=== PATIENT | female | born 1950 | race Caucasian/White ===

== ENCOUNTER 2022-12-13 17:41 | Emergency (ER) | payer MEDICARE, MEDICAID, SELFPAY ==
[2022-12-13 17:56] VITALS: BP 122/70; PULSE 65; RESP 16; TEMP 37; O2SAT 97; BMI 27.0
[2022-12-13] MEDS: ONDANSETRON 4 MG RAPDIS TABLET SL (18:30)
[2022-12-13 18:33] LABS: Bilirubin Urine NEGATIVE (NEGATIVE); Blood Urine TRACE-I (NEGATIVE); Clarity Urine SL CLOUDY (CLEAR); Color Urine LT. YELLOW (YELLOW); Glucose Urine UA NEGATIVE (NEGATIVE); Ketones Urine NEGATIVE (NEGATIVE); Leukocyte Esterase Urine LARGE (NEGATIVE); Nitrite Urine POSITIVE (NEGATIVE); Protein Urine 30 mg/dL (NEG/TRACE); Specific Gravity Urine 1.015 (1.005-1.025); Urobilinogen Urine 0.2 EU/dL (0.2-1.0); pH Urine 8.5 (5.0-9.0)
--- NOTE | 2022-12-13 18:38 | ED_ITS ---
HPI - General Adult General Chief complaint: Urogenital-Female Stated complaint: UTI Time Seen by Provider: 12/13/22 17:57 Source: patient Mode of arrival: walk-in Limitations: no limitations History of Present Illness HPI narrative: Patient is a 72-year-old female who is presenting to the Emergency Room with 5 days of urinary frequency, urgency, burning. Patient feels like she is having intermittent fevers last couple days, nausea no vomiting. Patient is having right lower back pain. 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 Patient had multiple injuries from previous trauma. Patient son is at bedside. Patient is in a walking boot to the right lower leg. Patient has a Rollader that she uses for ambulation. Patient had no vomiting. Patient thinks that she might of had kidney infections in the past from her urinary tract infection secondary to urinary retention. Patient has seen specialists for urinary retention the past, she no longer sees anybody. Patient has not had urinary retention for years. No acute complaints. Patient looks well, was a home with family. Patient is not meeting any sepsis parameters. . All systems are negative except as noted/marked. All systems reviewed and otherwise negative. . Nurses note and vital signs reviewed and patient is not hypoxic. General: The patient appears well and in no apparent distress. Patient is resting comfortably on cart. Patient is not toxic, lethargic, or listless Skin: Warm, dry, no pallor noted. There is no rash noted. No petechiae, purpura. Head: Normocephalic, atraumatic Eye: Normal conjunctiva, no drainage, EOMI. PERRL Ears, Nose, Mouth, and Throat: oral mucosa is moist. Nares patent. Mouth without vesicles. Cardiovascular: Regular Rate and Rhythm, no murmur, gallop, rub Respiratory: Patient is in no distress, no accessory muscle use, lungs are clear to auscultation, no wheezing, rales or rhonchi Back: non-tender, no CVA tenderness bilaterally to percussion. No CT LS midline pain GI: soft, Mild suprapubic tenderness palpation, no flank pain bilateral, no peritoneal signs, otherwise no tenderness to palpation, no masses appreciated. No rebound, guarding, or rigidity noted. No flank pain bilateral, No distention. No rash. Musculoskeletal: Patient has full range of motion of all of the extremities, no motor, sensory, or focal neurological deficits. Neurological: A&O x3, normal speech Psychiatric: Cooperative Related Data Home Medications Medication Instructions Recorded Confirmed amlodipine 10 mg tablet mg 12/13/22 celecoxib 200 mg capsule mg 12/13/22 clonazepam 0.5 mg tablet mg 12/13/22 pantoprazole 40 mg tablet,delayed mg PO 12/13/22 release potassium chloride 10 mEq meq PO 12/13/22 tablet,extended release sodium chloride 1,000 mg soluble mg 12/13/22 tablet trazodone 150 mg tablet mg 12/13/22 Previous Rx's Medication Instructions Recorded ciprofloxacin HCl 500 mg tablet 500 mg PO BID #14 tabs 12/13/22 (Cipro) phenazopyridine 200 mg tablet 200 mg PO TID x 3 days 2 days #6 12/13/22 (Pyridium) tabs Allergies Allergy/AdvReac Type Severity Reaction Status Date / Time haloperidol [From Haldol] Allergy Intermediate Verified 12/13/22 17:53 prochlorperazine AdvReac Intermediate Verified 12/13/22 17:53 [From Compazine] [facility] Social History Smoking status: Never smoker Exam Constitutional Vital Signs, click to edit/add: Last Vital Signs Temp 98.6 F 12/13/22 17:56 Pulse 65 12/13/22 17:56 Resp 16 12/13/22 17:56 BP 122/70 H 12/13/22 17:56 Pulse Ox 97 12/13/22 17:56 Course Vital Signs Vital signs: Vital Signs Temperature 98.6 F 12/13/22 17:56 Pulse Rate 65 12/13/22 17:56 Respiratory Rate 16 12/13/22 17:56 Blood Pressure 122/70 H 12/13/22 17:56 Pulse Oximetry 97 12/13/22 17:56 Temperature 98.6 F 12/13/22 17:56 Pulse Rate 65 12/13/22 17:56 Respiratory Rate 16 12/13/22 17:56 Blood Pressure 122/70 H 12/13/22 17:56 Pulse Oximetry 97 12/13/22 17:56 Medical Decision Making MDM Narrative Medical decision making narrative: Patient has evidence of a urinary tract infection. Patient was given her 1st shot of Rocephin in the Emergency Room along with her 1st dose of Cipro. Patient was sent home with 7 days of Cipro because she displaying sinus symptoms of early pyelonephritis. Patient was sent home with prescription for nausea medication as well. Patient will follow-up with PCP. Patient increase fluids at home. Education done at bedside. No questions at discharge. Lab Data Labs: Lab Results 12/13/22 Range/Units 18:15 Urine Color Lt. yellow (YELLOW) Urine Clarity Sl cloudy (CLEAR) Urine pH 8.5 (5.0-9.0) Ur Specific [place] 1.015 (1.005-1.025) Urine Protein 30 A (NEG/TRACE) mg/dL Urine Glucose (UA) Negative (NEGATIVE) mg/dL Urine Ketones Negative (NEGATIVE) mg/dL Urine Occult Blood Trace-i (NEGATIVE) Urine Nitrite Positive A (NEGATIVE) Urine Bilirubin Negative (NEGATIVE) Urine Urobilinogen 0.2 (0.2-1.0) EU/dL Ur Leukocyte Esterase Large A (NEGATIVE) Urine RBC 0-2 (0-2) #/HPF Urine WBC 20-50 A (NONE SEEN) #/HPF Ur Squamous Epith Cells Rare (NONE/RARE) #/LPF Urine Crystals None seen (None Seen) #/HPF Urine Bacteria Large A (NONE SEEN) #/HPF Urine Casts None seen (NONE SEEN) #/LPF Urine Mucus None seen (NONE SEEN) Ur Culture Indicated? Already ordered Discharge Plan Discharge Chief Complaint: Urogenital-Female Clinical Impression: Urinary tract infection Patient Disposition: Home, Self-Care Prescriptions / Home Meds: New ciprofloxacin HCl [Cipro] 500 mg tablet 500 mg PO BID Qty: 14 0RF phenazopyridine [Pyridium] 200 mg tablet 200 mg PO TID 2 Days Qty: 6 0RF No Action celecoxib 200 mg capsule clonazepam 0.5 mg tablet potassium chloride 10 mEq tablet extended release PO amlodipine 10 mg tablet pantoprazole 40 mg tablet,delayed release (DR/EC) PO trazodone 150 mg tablet sodium chloride 1,000 mg tablet,soluble Instructions: Urinary Tract Infection in Older Adults (ED) Additional Instructions: Continue to increase fluids. Follow-up with PCP. You're giving a shot of Rocephin and a 1st dose of Cipro in the Emergency Room today. Continue medication tomorrow morning. Increase fluids, including cranberry juice. Follow-up with PCP as needed. Stand Alone Forms: Portal Instructions Referrals: Physician,Non-Staff, MD [Primary Care Provider] - 1 week
[2022-12-13 18:46] LABS: WBC Urine 20-50 #/HPF (NONE SEEN)
[2022-12-13 18:47] LABS: Bacteria Urine LARGE #/HPF (NONE SEEN); Cast Seen? NONE SEEN #/LPF (NONE SEEN); Crystals Seen? None Seen #/HPF (None Seen); Mucus Urine NONE SEEN (NONE SEEN); RBC Urine 0-2 #/HPF (0-2); Squamous Epithelial Cell Urine RARE #/LPF (NONE/RARE); Urine Culture Indicated ALREADY ORDERED
[2022-12-13] MEDS: CIPROFLOXACIN HCL 500 MG TABLET PO (19:15)
[2022-12-13 19:26] VITALS: BP 132/61; PULSE 65; RESP 18; TEMP 36.6; O2SAT 95
--- NOTE | 2022-12-17 13:04 | PC.NURSE ---
12/17/[address] foote reviewed pt c+s of urine from 12/13/22 niko Salvador RN
== END 2022-12-13 19:34 | disposition home or self-care (01) ==
PROVIDERS: Emergency Provider Emergency Medicine
DX: N39.0 Urinary tract infection, site not specified (principal); Z79.899 Other long term (current) drug therapy
CPT/HCPCS: 81001; 87086; 87150; 87186; 96374; 99284

== ENCOUNTER 2022-12-19 10:34 | Emergency (ER) | payer MEDICARE, MEDICAID, SELFPAY ==
[2022-12-19] VITALS (8 sets, daily range): BP systolic 120–149; BP diastolic 63–74; PULSE 72; RESP 16–18; TEMP 36.8; O2SAT 92–97; BMI 23.4
--- NOTE | 2022-12-19 10:56 | ED.LOWEXI1 ---
HPI - Extremity Injury (Lower) General Chief Complaint: Extremity Injury, Lower Stated Complaint: LOWER EXTREMITY PAIN RIGHT FOOT Time Seen by Provider: 12/19/22 10:56 Source: patient and family Mode of arrival: Wheelchair Limitations: no limitations History of Present Illness HPI Narrative: Patient's this emergency department complaining of right foot pain. Patient states the pain is worse over the base of the 5th. Patient has noted some erythema. She had a crush injury to the foot and has a history of multiple surgeries with chronic deformities. She was recently placed on a walking boot by the banana ripening room supervisor. She states this is causing her to develop calluses over the lateral surface of the midfoot. Son states the patient has been picking at the calluses. Patient states she is in a lot of pain and she is not able to bear weight as she normally did. They called her banana ripening room supervisor who is out of town. She states she has been having increased erythema so she wanted to get on some antibiotics. Patient was treated for a urinary tract infection 10 days ago. She is denying any flank pain, hematuria, dysuria. She denies any fever, chills. She denies any new trauma. Related Data Home Medications Medication Instructions Recorded Confirmed amlodipine 10 mg tablet mg 12/13/22 celecoxib 200 mg capsule mg 12/13/22 clonazepam 0.5 mg tablet mg 12/13/22 pantoprazole 40 mg tablet,delayed mg PO 12/13/22 release potassium chloride 10 mEq meq PO 12/13/22 tablet,extended release sodium chloride 1,000 mg soluble mg 12/13/22 tablet trazodone 150 mg tablet mg 12/13/22 Previous Rx's Medication Instructions Recorded ciprofloxacin HCl 500 mg tablet 500 mg PO BID #14 tabs 12/13/22 (Cipro) ondansetron HCl 4 mg tablet 4 mg PO DAILY PRN nausea and 12/13/22 vomiting 3 days #7 tabs phenazopyridine 200 mg tablet 200 mg PO TID x 3 days 2 days #6 12/13/22 (Pyridium) tabs cephalexin 500 mg capsule 500 mg PO Q8H 7 days #21 caps 12/19/22 sulfamethoxazole 800 1 tab PO BID 7 days #14 tabs 12/19/22 mg-trimethoprim 160 mg tablet (Bactrim DS) Allergies Allergy/AdvReac Type Severity Reaction Status Date / Time haloperidol [From Haldol] Allergy Intermediate Verified 12/13/22 17:53 prochlorperazine AdvReac Intermediate Verified 12/13/22 17:53 [From Compazine] Review of Systems ROS Status of ROS 10 or more systems reviewed and unremarkable except as noted in history and below [facility] Social History Smoking status: Never smoker Exam Narrative Exam Narrative: Nurses notes and vital signs reviewed and patient is not hypoxic. General: Nontoxic, Well-appearing and in no apparent distress. Skin: Warm, dry, no pallor noted. No Rash Head: Normocephalic, atraumatic. Neck: Supple, non-tender. Eye: Pupils are equal, round and EOMI. No scleral icterus. Ears, Nose, Mouth, and Throat: TM clear, no posterior oropharynx erythema or nasal mucosal hypertrophy, uvula is mid-line Oral mucosa is moist Cardiovascular: Regular Rate and Rhythm without murmur, gallop or rub. Respiratory: No accessory muscle use or respiratory distress. Lungs are clear to auscultation, no wheezing, rales or rhonchi Chest Wall: no tenderness Back: No midline thoracic or lumbar vertebral tenderness. No CVA tenderness Musculoskeletal: Right foot deformity noted, there is a 2 x 2 cm callus to the base of the 5th with erythema extending medially to the midfoot. There is no fluctuance or signs of abscess. No proximal streaking. DP +2. Capillary refill is brisk. Full range of motion, no calf or popliteal tenderness, no lower extremity edema/swelling GI: Abdomen is soft, non-distended. Normal bowel sounds. No masses appreciated. No tenderness to palpation. No rebound, guarding, or rigidity noted. Neurological: A&O x4. No cranial nerve dysfunction observed. No truncal ataxia. Moves all extremities. Sensation intact. Psychiatric: Cooperative and interactive. Normal mood and affect. Constitutional Vital Signs, click to edit/add: Last Vital Signs Temp 98.3 F 12/19/22 10:41 Pulse 72 12/19/22 10:41 Resp 18 12/19/22 10:41 BP 149/72 H 12/19/22 10:41 Pulse Ox 97 12/19/22 10:41 O2 Del Method Room Air 12/19/22 10:41 Course Vital Signs Vital signs: Vital Signs Temperature 98.3 F 12/19/22 10:41 Pulse Rate 72 12/19/22 10:41 Respiratory Rate 18 12/19/22 10:41 Blood Pressure 149/72 H 12/19/22 10:41 Pulse Oximetry 97 12/19/22 10:41 Oxygen Delivery Method Room Air 12/19/22 10:41 Temperature 98.3 F 12/19/22 10:41 Pulse Rate 72 12/19/22 10:41 Respiratory Rate 18 12/19/22 10:41 Blood Pressure 149/72 H 12/19/22 10:41 Pulse Oximetry 97 12/19/22 10:41 Oxygen Delivery Method Room Air 12/19/22 10:41 MDM - Extremity Injury (Lower) MDM Narrative Medical decision making narrative: She had an IV established, she was given vancomycin. X-ray does not show any osteomyelitis. Patient's labs do not show any signs of sepsis. Patient complaining the emergency department of headache. She was given Toradol and CT scan of the brain was ordered. Results were discussed with patient and son. Patient will be given a prescription for Bactrim, Keflex and she is to follow-up with podiatry as an outpatient. At this time the patient is without objective evidence of an acute process requiring hospitalization or inpatient management. The patient has remained hemodynamically stable. No additional indication for emergent studies at this time. I answered all questions. Discussed discharge instructions including standard anticipatory guidance and what should prompt a return to the emergency department, including if they get worse are not getting better or develops any new or concerning symptoms. I've given them specific time frame in which to follow-up, and who to follow-up with. The patient demonstrates understanding. Patient is nontoxic and stable for discharge with outpatient follow-up. This note was created with the assistance of a speech recognition program. Although the intention is to generate documents that actually reflects the content of the visit, no guarantees can be provided that every mistake has been identified and corrected by editing. Medical Records Attestation: I reviewed the patient's medical records. Lab Data Attestation: I reviewed the patient's lab results. Discharge Plan Discharge Chief Complaint: Extremity Injury, Lower Clinical Impression: Cellulitis of foot, right Patient Disposition: Home, Self-Care Time of Disposition Decision: 13:09 Condition: Good Mode of Transportation: Private Vehicle Prescriptions / Home Meds: New sulfamethoxazole-trimethoprim [Bactrim DS] 800-160 mg tablet 1 tab PO BID 7 Days Qty: 14 0RF cephalexin 500 mg capsule 500 mg PO Q8H 7 Days Qty: 21 0RF No Action celecoxib 200 mg capsule clonazepam 0.5 mg tablet potassium chloride 10 mEq tablet extended release PO amlodipine 10 mg tablet pantoprazole 40 mg tablet,delayed release (DR/EC) PO trazodone 150 mg tablet sodium chloride 1,000 mg tablet,soluble ciprofloxacin HCl [Cipro] 500 mg tablet 500 mg PO BID Qty: 14 0RF phenazopyridine [Pyridium] 200 mg tablet 200 mg PO TID 2 Days Qty: 6 0RF ondansetron HCl 4 mg tablet 4 mg PO DAILY PRN (Reason: nausea and vomiting) 3 Days Qty: 7 0RF Instructions: Cellulitis (ED) Stand Alone Forms: Portal Instructions Referrals: Physician,Non-Staff, MD [Primary Care Provider] - 1 week Robbie Engel MD [Physician] - 1 week
--- NOTE | 2022-12-19 11:14 | XR_ITS ---
[address] [address] Patient Name: MAEGAN DYE MRN: [id number] date: 1950 Sex: F Assigned Patient Location: ER Current Patient Location: ER Accession/Order Number: [id number] Exam Date: 12/19/2022 11:30 Report Date: 12/19/2022 11:55 At the request of: GREGORY PARK Procedure: XR foot RT min 3V PROCEDURE: XR foot RT min 3V COMPARISON: 10/18/2022 HISTORY: pain, FINDINGS: BONES:There is deformity of the foot. 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 Fixation hardware distal tibia partially visualized. No acute fracture or dislocation SOFT TISSUES:Negative. No visible soft tissue swelling. EFFUSION:None visible. OTHER: Negative. XR/XR foot RT min 3V IMPRESSION: No acute fracture Electronically authenticated by: JOSE ROBERTSON Date: 12/19/2022 11:55
[2022-12-19] MEDS: VANCOMYCIN HCL 1,000 MG in 0.9 % SODIUM CHLORIDE 250 ML 250 MG IV (11:46)
[2022-12-19 11:52] LABS: BUN Creatinine Ratio 10.4; Carbon Dioxide 31.9 mmol/L (21.0-32.0); Chloride 97 mmol/L (98-107); Estimated GFR (African America 47 (>=60); Estimated GFR (Non-African Ame 39 (>=60); Glucose 130 mg/dL (74-106); Potassium 3.9 mmol/L (3.5-5.1); Sodium 135 mmol/L (136-145)
[2022-12-19 11:53] LABS: C Reactive Protein <0.2 mg/dL (<=1.0)
[2022-12-19 11:57] LABS: Basophils Absolute Auto 0.1 10^3/uL (0.0-0.1); Basophils Percent Auto 1.2 % (0.2-2.0); Eosinophils Absolute Auto 0.1 10^3/uL (0.0-0.7); Eosinophils Percent Auto 1.2 % (0.9-7.0); Hematocrit 43.9 % (36.0-48.0); Hemoglobin 13.9 g/dL (12.0-16.0); Immature Granulocytes Abs Auto 0.02 10^3/uL (0.00-0.03); Immature Granulocytes Pct Auto 0.3 % (0.0-0.5); Lymphocytes Absolute Auto 1.4 10^3/uL (1.2-3.8); Lymphocytes Percent Auto 19.6 % (20.5-60.0); Mean Corpuscular HGB Conc 31.7 g/dL (29.9-35.2); Mean Corpuscular Hemoglobin 28.2 pg (26.7-34.0); Mean Platelet Volume 8.8 fL (9.5-13.5); Monocytes Absolute Auto 0.6 10^3/uL (0.3-0.8); Monocytes Percent Auto 8.2 % (1.7-12.0); Neutrophils Absolute Auto 4.8 10^3/uL (1.4-6.5); Neutrophils Percent Auto 69.5 % (43.0-75.0); Platelet Count 261 10^3/uL (150-450); Red Blood Count 4.93 10^6/uL (4.20-5.40); Red Cell Distribution Width 12.3 % (11.0-15.0); White Blood Count 6.9 10^3/uL (4.0-11.0)
--- NOTE | 2022-12-19 12:08 | CT_ITS ---
The [address] [address] Patient Name: MAEGAN DYE MRN: [id number] date: 1950 Sex: F Assigned Patient Location: ER Current Patient Location: ER Accession/Order Number: [id number] Exam Date: 12/19/2022 12:15 Report Date: 12/19/2022 12:31 At the request of: GREGORY PARK Procedure: CT stroke head/brain wo con EXAM: CT stroke head/brain wo con HISTORY: cephlagia COMPARISON: CT brain 04/03/2015 TECHNIQUE: No IV contrast. FINDINGS: The ventricles and basilar cisterns are moderately dilated consistent with atrophy. Marked hypodensities periventricular regions and centrum semiovale consistent with microangiopathic change and previous vascular insult. No acute intra-axial or extra-axial hemorrhage. No midline shift, mass effect or edema. Visualized paranasal sinuses demonstrate no evidence for acute sinusitis. The mastoid air cells are clear. The external and middle ear cavities are unremarkable CT/CT stroke head/brain wo con IMPRESSION: No acute hemorrhage Electronically authenticated by: FLOWER ANDRADE Date: 12/19/2022 12:31
[2022-12-19 12:09] LABS: Erythrocyte Sedimentation Rate 26 mm/hr (<=30)
[2022-12-19 12:46] LABS: Bilirubin Urine NEGATIVE (NEGATIVE); Blood Urine NEGATIVE (NEGATIVE); Clarity Urine CLEAR (CLEAR); Color Urine YELLOW (YELLOW); Glucose Urine UA NEGATIVE (NEGATIVE); Ketones Urine NEGATIVE (NEGATIVE); Leukocyte Esterase Urine TRACE (NEGATIVE); Nitrite Urine NEGATIVE (NEGATIVE); Protein Urine NEGATIVE (NEG/TRACE); Specific Gravity Urine 1.025 (1.005-1.025)
[2022-12-19 12:48] LABS: Urine Microscopic Indicated YES
[2022-12-19 12:57] LABS: Bacteria Urine TRACE #/HPF (NONE SEEN); Cast Seen? NONE SEEN #/LPF (NONE SEEN); Crystals Seen? None Seen #/HPF (None Seen); Mucus Urine TRACE (NONE SEEN); Squamous Epithelial Cell Urine FEW #/LPF (NONE/RARE); Urine Culture Indicated NO
[2022-12-19] MEDS: KETOROLAC TROMETHAMINE 30 MG/ML VIAL IVP (13:35)
== END 2022-12-19 13:54 | disposition home or self-care (01) ==
PROVIDERS: Emergency Provider Emergency Medicine
DX: L03.115 Cellulitis of right lower limb (principal); Z79.899 Other long term (current) drug therapy; Z87.440 Personal history of urinary (tract) infections
CPT/HCPCS: 36415; 70450; 73630; 80048; 81001; 81003; 85025; 85652; 86140; 96365; 96375; 99285; J3370

== ENCOUNTER 2023-01-04 10:47 | Emergency (ER) | payer MEDICARE, MEDICAID, SELFPAY ==
[2023-01-04 10:52] VITALS: BP 112/72; PULSE 60; RESP 20; TEMP 36.7; O2SAT 93; BMI 23.8
--- NOTE | 2023-01-04 11:25 | ED.FEMALEGU1 ---
HPI - Female Genitourinary General Chief complaint: Urogenital-Female Stated complaint: UTI COMPLAINTS Time Seen by Provider: 01/04/23 11:01 Source: patient Mode of arrival: Wheelchair Limitations: no limitations History of Present Illness HPI Narrative: patient had a back injury and was not able to urinate on her - she had to self cath. Then, she spontaneously began urinating and did so for several months. However, two months ago, she once again developed difficulty passing urine on her own and started cathing herself again. She has a urologist in [place] via [facility] but did not call them to let them know about this. She now presents telling me that she has conintued sensation of blader fullness and has to cath herself numerous times per day. She is requesting a choi catheter. No flank pain or abdominal pain. She apparently spoke with her PCP and was started on Bactrim the other day to treat any possible infection. No systemic symptoms such as fever or vomiting. Related Data Home Medications Medication Instructions Recorded Confirmed amlodipine 10 mg tablet mg 12/13/22 celecoxib 200 mg capsule mg 12/13/22 clonazepam 0.5 mg tablet mg 12/13/22 pantoprazole 40 mg tablet,delayed mg PO 12/13/22 release potassium chloride 10 mEq meq PO 12/13/22 tablet,extended release sodium chloride 1,000 mg soluble mg 12/13/22 tablet trazodone 150 mg tablet mg 12/13/22 Previous Rx's Medication Instructions Recorded ciprofloxacin HCl 500 mg tablet 500 mg PO BID #14 tabs 12/13/22 (Cipro) ondansetron HCl 4 mg tablet 4 mg PO DAILY PRN nausea and 12/13/22 vomiting 3 days #7 tabs phenazopyridine 200 mg tablet 200 mg PO TID x 3 days 2 days #6 12/13/22 (Pyridium) tabs cephalexin 500 mg capsule 500 mg PO Q8H 7 days #21 caps 12/19/22 sulfamethoxazole 800 1 tab PO BID 7 days #14 tabs 12/19/22 mg-trimethoprim 160 mg tablet (Bactrim DS) Allergies Allergy/AdvReac Type Severity Reaction Status Date / Time haloperidol [From Haldol] Allergy Intermediate Verified 12/13/22 17:53 prochlorperazine AdvReac Intermediate Verified 12/13/22 17:53 [From Compazine] keflex AdvReac Intermediate Nausea Uncoded 01/04/23 10:52 [facility] Social History Smoking status: Never smoker Exam Narrative Exam Narrative: Nurses notes and vital signs reviewed and patient is not hypoxic. afebrile General: Well-appearing and in no apparent distress. Skin: Warm, dry, no pallor noted. Head: Normocephalic, atraumatic. Ears, Nose, Mouth, and Throat: Oral mucosa is moist Cardiovascular: Regular Rate and Rhythm without murmur, gallop or rub. Respiratory: No accessory muscle use or respiratory distress. Lungs are clear to auscultation, no wheezing, rales or rhonchi Back: No CVA tenderness Musculoskeletal: normal ROM GI: Abdomen is soft, non-distended. Normal bowel sounds. No masses appreciated. No tenderness to palpation. No rebound, guarding, or rigidity noted. Neurological: A&O x4. No cranial nerve dysfunction observed. No truncal ataxia. Moves all extremities. Sensation intact. Psychiatric: Cooperative and interactive. Normal mood and affect. Constitutional Vital Signs, click to edit/add: Last Vital Signs Temp 98.1 F 01/04/23 10:52 Pulse 60 01/04/23 10:52 Resp 20 01/04/23 10:52 BP 112/72 01/04/23 10:52 Pulse Ox 93 L 01/04/23 10:52 O2 Del Method Room Air 01/04/23 10:52 Course Vital Signs Vital signs: Vital Signs Temperature 98.1 F 01/04/23 10:52 Pulse Rate 60 01/04/23 10:52 Respiratory Rate 20 01/04/23 10:52 Blood Pressure 112/72 01/04/23 10:52 Pulse Oximetry 93 L 01/04/23 10:52 Oxygen Delivery Method Room Air 01/04/23 10:52 Temperature 98.1 F 01/04/23 10:52 Pulse Rate 60 01/04/23 10:52 Respiratory Rate 20 01/04/23 10:52 Blood Pressure 112/72 01/04/23 10:52 Pulse Oximetry 93 L 01/04/23 10:52 Oxygen Delivery Method Room Air 01/04/23 10:52 MDM - Female Genitourinary MDM Narrative Medical decision making narrative: Nurse straight cathed the patient for urine sample but the patient ahd just emptied her bladder [employer] and no urine was retrieved. ED nurse instructed to insert a choi catheter and attach to leg bag. Patient instructed to complete her antibiotic prescription and to call her Urologist to see if she could move the appointment closer - she is currently scheduled 01/29/23. At the conclusion of the visit the patient requested a covid swab/rtest. She said that one of the doctors she saw told her that he had covid 2 weeks prior. She has no symptoms to suggest covid infection. The test came back negative. Lab Data Labs: Lab Results 01/04/23 Range/Units 11:38 SARS-CoV-2 (PCR) Negative (NEGATIVE) Discharge Plan Discharge Chief Complaint: Urogenital-Female Clinical Impression: Urinary retention Patient Disposition: Home, Self-Care Time of Disposition Decision: 11:30 Prescriptions / Home Meds: No Action celecoxib 200 mg capsule clonazepam 0.5 mg tablet potassium chloride 10 mEq tablet extended release PO amlodipine 10 mg tablet pantoprazole 40 mg tablet,delayed release (DR/EC) PO trazodone 150 mg tablet sodium chloride 1,000 mg tablet,soluble ciprofloxacin HCl [Cipro] 500 mg tablet 500 mg PO BID Qty: 14 0RF phenazopyridine [Pyridium] 200 mg tablet 200 mg PO TID 2 Days Qty: 6 0RF ondansetron HCl 4 mg tablet 4 mg PO DAILY PRN (Reason: nausea and vomiting) 3 Days Qty: 7 0RF sulfamethoxazole-trimethoprim [Bactrim DS] 800-160 mg tablet 1 tab PO BID 7 Days Qty: 14 0RF cephalexin 500 mg capsule 500 mg PO Q8H 7 Days Qty: 21 0RF Instructions: Acute Urinary Retention in Women (ED) Stand Alone Forms: Portal Instructions Referrals: Physician,Non-Staff, MD [Primary Care Provider] - 1 week Discharge Date/Time: 01/04/23 12:12
[2023-01-04 13:07] LABS: SARS-CoV-2 Ag NEGATIVE (NEGATIVE)
[2023-01-05 12:46] LABS: SARS-CoV-2 NAA NOT DETECTED (NOT DETECTE)
== END 2023-01-04 12:12 | disposition home or self-care (01) ==
PROVIDERS: Emergency Provider Emergency Medicine
DX: R33.9 Retention of urine, unspecified (principal); Z20.822 Contact with and (suspected) exposure to COVID-19; Z79.899 Other long term (current) drug therapy
CPT/HCPCS: 87635; 87811; 99283

== ENCOUNTER 2023-01-25 09:47 | Emergency (ER) | payer MEDICARE, MEDICAID, SELFPAY ==
[2023-01-25 09:50] VITALS: BP 128/72; PULSE 63; RESP 18; TEMP 36.4; O2SAT 94; BMI 19.7
--- NOTE | 2023-01-25 09:59 | XR_ITS ---
The [address] [address] Patient Name: MAEGAN DYE MRN: [id number] date: 1950 Sex: F Assigned Patient Location: ER Current Patient Location: ER Accession/Order Number: [id number] Exam Date: 01/25/2023 10:10 Report Date: 01/25/2023 10:38 At the request of: ALISON MOYA Procedure: XR forearm RT 2V EXAMINATION: XR forearm RT 2V REASON FOR EXAM: injury Status post fall. TECHNIQUE: 2 views. FINDINGS: No stress reaction or fracture of the radius or ulna. There is osteoarthritis at the radiocarpal joint. No soft tissue gas collection or foreign body. XR/XR forearm RT 2V IMPRESSION: Negative x-rays of the right forearm. Electronically authenticated by: ELIZABETH BRASWELL Date: 01/25/2023 10:38
--- NOTE | 2023-01-25 09:59 | XR_ITS ---
The [address] [address] Patient Name: MAEGAN DYE MRN: [id number] date: 1950 Sex: F Assigned Patient Location: ER Current Patient Location: ER Accession/Order Number: [id number] Exam Date: 01/25/2023 10:10 Report Date: 01/25/2023 10:38 At the request of: ALISON MOYA Procedure: XR shoulder RT min 2V EXAMINATION: XR shoulder RT min 2V REASON FOR EXAM: injury TECHNIQUE: 3 views. COMPARISON: None. FINDINGS: There is subacromial stenosis suggesting rotator cuff deficiency. There is moderate osteoarthritis of glenohumeral joint. No dislocation or fracture. Old healed fracture deformities of the posterior right third and fourth ribs. XR/XR shoulder RT min 2V IMPRESSION: 1. No acute dislocation or fraction in the right shoulder girdle. 2. Moderate osteoarthritis of the glenohumeral joint with superior subluxation of the humeral head suggesting chronic rotator cuff deficiency. Electronically authenticated by: ELIZABETH BRASWELL Date: 01/25/2023 10:38
--- NOTE | 2023-01-25 10:42 | ED.UPPEXIN1 ---
HPI - Extremity Injury (Upper) General Chief Complaint: Extremity Injury, Upper Stated Complaint: UPPER EXTREMITY INJURY Time Seen by Provider: 01/25/23 09:54 Source: patient Mode of arrival: Wheelchair Limitations: no limitations History of Present Illness HPI narrative: Patient fell and injured her right shoulder with pain radiating into the right forearm. No head injury or LOC. No neck or back injury. Related Data Home Medications Medication Instructions Recorded Confirmed amlodipine 10 mg tablet mg 12/13/22 celecoxib 200 mg capsule mg 12/13/22 clonazepam 0.5 mg tablet mg 12/13/22 pantoprazole 40 mg tablet,delayed mg PO 12/13/22 release potassium chloride 10 mEq meq PO 12/13/22 tablet,extended release sodium chloride 1,000 mg soluble mg 12/13/22 tablet trazodone 150 mg tablet mg 12/13/22 Previous Rx's Medication Instructions Recorded ciprofloxacin HCl 500 mg tablet 500 mg PO BID #14 tabs 12/13/22 (Cipro) ondansetron HCl 4 mg tablet 4 mg PO DAILY PRN nausea and 12/13/22 vomiting 3 days #7 tabs phenazopyridine 200 mg tablet 200 mg PO TID x 3 days 2 days #6 12/13/22 (Pyridium) tabs cephalexin 500 mg capsule 500 mg PO Q8H 7 days #21 caps 12/19/22 sulfamethoxazole 800 1 tab PO BID 7 days #14 tabs 12/19/22 mg-trimethoprim 160 mg tablet (Bactrim DS) nabumetone 750 mg tablet 750 mg PO BID PRN pain #20 tabs 01/25/23 Allergies Allergy/AdvReac Type Severity Reaction Status Date / Time haloperidol [From Haldol] Allergy Intermediate Verified 12/13/22 17:53 cephalexin [From Keflex] AdvReac Intermediate Nausea Verified 01/25/23 10:47 prochlorperazine AdvReac Intermediate Verified 12/13/22 17:53 [From Compazine] PFS PFS Social History Smoking status: Current some day smoker Exam Narrative Exam Narrative: Nurses note and vital signs reviewed and patient is not hypoxic. afebrile General: The patient appears well and in no apparent distress. Patient is resting comfortably on cart. GCS = 15. Skin: Warm, dry, no pallor noted. Head: Normocephalic, atraumatic Neck: Supple, trachea mid-line. Full ROM and no cervical spinal tenderness. Eyes: PERRLA, EOMI Cardiovascular: Regular Rate and Rhythm Respiratory: Patient is in no distress, no accessory muscle use, lungs are clear to auscultation, no wheezing, rales or rhonchi Chest Wall: no tenderness, no flail chest, contusion, abrasion, or signs of trauma. Back: No thoracic or lumbar tenderness to palpation. Negative straight leg raise bilaterally. Musculoskeletal: Right shoulder tenderness on palpation anteriorly and superiorly. Normal ROM right UE at the elbow, wrist and hand. Right LE with boot. Moves remaining extremities normally. 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 Psychiatric: Cooperative Constitutional Vital Signs, click to edit/add: Last Vital Signs Temp 97.6 F 01/25/23 09:50 Pulse 63 01/25/23 09:50 Resp 18 01/25/23 09:50 BP 128/72 01/25/23 09:50 Pulse Ox 94 L 01/25/23 09:50 Course Vital Signs Vital signs: Vital Signs Temperature 97.6 F 01/25/23 09:50 Pulse Rate 63 01/25/23 09:50 Respiratory Rate 18 01/25/23 09:50 Blood Pressure 128/72 01/25/23 09:50 Pulse Oximetry 94 L 01/25/23 09:50 Temperature 97.6 F 01/25/23 09:50 Pulse Rate 63 01/25/23 09:50 Respiratory Rate 18 01/25/23 09:50 Blood Pressure 128/72 01/25/23 09:50 Pulse Oximetry 94 L 01/25/23 09:50 MDM - Extremity Injury (Upper) [facility] Narrative Medical decision making narrative: xrays of the right shoulder and right forearm obtained. No fracture or dislocation identified by the radiologist and on my view on the radiographs. ED nurse applied a sling to the patient's right UE and she was neurovascularly intact distally afterward. She can see her PCP for follow up. Prescribed Relafen for pain. Imaging Data xr forearm: Radiologist's impression: Patient Name: MAEGAN DYE MRN: [id number] date: 1950 Sex: F Assigned Patient Location: ER Current Patient Location: ER Accession/Order Number: [id number] Exam Date: 01/25/2023 10:10 Report Date: 01/25/2023 10:38 At the request of: ALISON MOYA Procedure: XR forearm RT 2V EXAMINATION: XR forearm RT 2V REASON FOR EXAM: injury Status post fall. TECHNIQUE: 2 views. FINDINGS: No stress reaction or fracture of the radius or ulna. There is osteoarthritis at the radiocarpal joint. No soft tissue gas collection or foreign body. IMPRESSION: Negative x-rays of the right forearm. Electronically authenticated by: ELIZABETH BRASWELL Date: 01/25/2023 10:38 xr shoulder: Radiologist's impression: Patient Name: MAEGAN DYE MRN: [facility]:[id number] date: 1950 Sex: F Assigned Patient Location: ER Current Patient Location: ER Accession/Order Number: [id number] Exam Date: 01/25/2023 10:10 Report Date: 01/25/2023 10:38 At the request of: ALISON MOYA Procedure: XR shoulder RT min 2V EXAMINATION: XR shoulder RT min 2V REASON FOR EXAM: injury TECHNIQUE: 3 views. COMPARISON: None. FINDINGS: There is subacromial stenosis suggesting rotator cuff deficiency. There is moderate osteoarthritis of glenohumeral joint. No dislocation or fracture. Old healed fracture deformities of the posterior right third and fourth ribs. IMPRESSION: 1. No acute dislocation or fraction in the right shoulder girdle. 2. Moderate osteoarthritis of the glenohumeral joint with superior subluxation of the humeral head suggesting chronic rotator cuff deficiency. Electronically authenticated by: ELIZABETH BRASWELL Date: 01/25/2023 10:38 Discharge Plan Discharge Chief Complaint: Extremity Injury, Upper Clinical Impression: Sprain of right shoulder Patient Disposition: Home, Self-Care Time of Disposition Decision: 10:45 Prescriptions / Home Meds: New nabumetone 750 mg tablet 750 mg PO BID PRN (Reason: pain) Qty: 20 0RF No Action celecoxib 200 mg capsule clonazepam 0.5 mg tablet potassium chloride 10 mEq tablet extended release PO amlodipine 10 mg tablet pantoprazole 40 mg tablet,delayed release (DR/EC) PO trazodone 150 mg tablet sodium chloride 1,000 mg tablet,soluble ciprofloxacin HCl [Cipro] 500 mg tablet 500 mg PO BID Qty: 14 0RF phenazopyridine [Pyridium] 200 mg tablet 200 mg PO TID 2 Days Qty: 6 0RF ondansetron HCl 4 mg tablet 4 mg PO DAILY PRN (Reason: nausea and vomiting) 3 Days Qty: 7 0RF sulfamethoxazole-trimethoprim [Bactrim DS] 800-160 mg tablet 1 tab PO BID 7 Days Qty: 14 0RF cephalexin 500 mg capsule 500 mg PO Q8H 7 Days Qty: 21 0RF Instructions: Shoulder Sprain (ED) Stand Alone Forms: Portal Instructions Referrals: Physician,Non-Staff, MD [Primary Care Provider] - 1 week
== END 2023-01-25 11:05 | disposition home or self-care (01) ==
PROVIDERS: Emergency Provider Emergency Medicine
DX: S43.401A Unspecified sprain of right shoulder joint, initial encounter (principal); Z79.899 Other long term (current) drug therapy; W19.XXXA Unspecified fall, initial encounter; F17.210 Nicotine dependence, cigarettes, uncomplicated
CPT/HCPCS: 73030; 73090; 99284

== ENCOUNTER 2024-01-03 09:04 | Emergency (ER) | payer MEDICARE, MEDICAID, SELFPAY ==
[2024-01-03 09:13] VITALS: BP 131/79; PULSE 77; TEMP 36.8; O2SAT 93; BMI 22.9
[2024-01-03] MEDS: CIPROFLOXACIN HCL 500 MG TABLET PO (09:37)
--- NOTE | 2024-01-03 09:37 | ED_ITS ---
HPI - Female Genitourinary General Chief complaint: Urogenital-Female Stated complaint: DIFFICULT URINARING Time Seen by Provider: 01/03/24 09:22 Source: patient Mode of arrival: walk-in Limitations: no limitations History of Present Illness HPI Narrative: The patient was just diagnosed with UTI yesterday in urgent care, she was started on Macrobid but apparently she mentioned that it is making her stomach upset and that why she is coming to the ER to have another antibiotic The patient presented there with frequency and burning with urination she denies any abdominal pain fever chills The patient mentioned that she does have urine infection history and she was treated before with ciprofloxacin with no side effect Related Data Home Medications ?Medication ?Instructions ?Recorded ?Confirmed amlodipine 10 mg tablet mg 12/13/22 celecoxib 200 mg capsule mg 12/13/22 clonazepam 0.5 mg tablet mg 12/13/22 pantoprazole 40 mg tablet,delayed mg PO 12/13/22 release potassium chloride 10 mEq meq PO 12/13/22 tablet,extended release sodium chloride 1,000 mg soluble mg 12/13/22 tablet trazodone 150 mg tablet mg 12/13/22 ondansetron 4 mg disintegrating 4 mg PO PRN nausea and vomiting 01/03/24 tablet Previous Rx's ?Medication ?Instructions ?Recorded ciprofloxacin HCl 250 mg tablet 250 mg PO BID #10 tabs 01/03/24 Allergies Allergy/AdvReac Type Severity Reaction Status Date / Time haloperidol [From Haldol] Allergy Intermediate Verified 12/13/22 17:53 cephalexin [From Keflex] AdvReac Intermediate Nausea Verified 01/25/23 10:47 prochlorperazine AdvReac Intermediate Verified 12/13/22 17:53 [From Compazine] Review of Systems ROS Status of ROS 10 or more systems reviewed and unremark able except as noted in history and below PFSH PFSH Social History Smoking status: Current some day smoker Exam Narrative Exam Narrative: Nurses notes and vital signs reviewed and patient is not hypoxic. General: Well-appearing and in no apparent distress. Skin: Warm, dry, no pallor noted. No rash. Head: Normocephalic, atraumatic. Neck: Supple, non-tender. Eye: Pupils are equal, round and EOMI. No scleral icterus. Ears, Nose, Mouth, and Throat: TM are clear, no nasal mucosal hypertrophy. Oral mucosa is moist, no posterior oropharynx erythema, uvula is mid-line Cardiovascular: Regular Rate and Rhythm without murmur, gallop or rub. Respiratory: No accessory muscle use or respiratory distress. Lungs are clear to auscultation, no wheezing, rales or rhonchi Chest Wall: no tenderness Back: No midline thoracic or lumbar vertebral tenderness. No CVA tenderness Musculoskeletal: normal ROM, no calf or popliteal tenderness, no lower extremity edema/swelling GI: Abdomen is soft, non-distended. Normal bowel sounds. No masses appreciated. No tenderness to palpation. No rebound, guarding, or rigidity noted. Neurological: A&O x4. No cranial nerve dysfunction observed. No truncal ataxia. Moves all extremities. Sensation intact. Psychiatric: Cooperative and interactive. Normal mood and affect. Constitutional Vital Signs, click to edit/add: Last Vital Signs Temp 98.2 F 01/03/24 09:13 Pulse 77 01/03/24 09:13 Resp 18 01/03/24 09:13 BP 131/79 01/03/24 09:13 Pulse Ox 93 L 01/03/24 09:13 O2 Del Method Room Air 01/03/24 09:13 Course Vital Signs Vital signs: Vital Signs Temperature 98.2 F 01/03/24 09:13 Pulse Rate 77 01/03/24 09:13 Respiratory Rate 18 01/03/24 09:13 Blood Pressure 131/79 01/03/24 09:13 Pulse Oximetry 93 L 01/03/24 09:13 Oxygen Delivery Method Room Air 01/03/24 09:13 Temperature 98.2 F 01/03/24 09:13 Pulse Rate 77 01/03/24 09:13 Respiratory Rate 18 01/03/24 09:13 Blood Pressure 131/79 01/03/24 09:13 Pulse Oximetry 93 L 01/03/24 09:13 Oxygen Delivery Method Room Air 01/03/24 09:13 MDM - Female Genitourinary MDM Narrative Medical decision making narrative: After reviewing the patient medication she was treated before with ciprofloxacin and she will be started on ciprofloxacin 250 mg twice daily Patient cannot be started on Bactrim because she takes potassium supplement and should he have reaction to Macrobid although she was instructed about taking all the medication with food not on empty stomach The patient is to follow up with primary care physician in next 2-3 days or to return to the emergency department should any of the signs or symptoms worsen or new symptoms develop. The patient agrees with the following Diagnosis and Treatment plan and the patient will be discharged home. Discharge Plan Discharge Stand Alone Forms: Portal Instructions Chief Complaint: Urogenital-Female Clinical Impression: Urinary tract infection Qualifiers: Urinary tract infection type: acute cystitis Hematuria presence: without hematuria Qualified Code(s): N30.00 - Acute cystitis without hematuria Patient Disposition: Home, Self-Care Time of Disposition Decision: 09:35 Condition: Good Prescriptions / Home Meds: New ciprofloxacin HCl 250 mg tablet 250 mg PO BID Qty: 10 0RF No Action ondansetron 4 mg tablet,disintegrating 4 mg PO PRN (Reason: nausea and vomiting) celecoxib 200 mg capsule clonazepam 0.5 mg tablet potassium chloride 10 mEq tablet extended release PO amlodipine 10 mg tablet pantoprazole 40 mg tablet,delayed release (DR/EC) PO trazodone 150 mg tablet sodium chloride 1,000 mg tablet,soluble Print Language: Cambodian Instructions: Urinary Tract Infection in Women (DC) Referrals: Physician,Non-Staff, MD [Primary Care Provider] - 1 week
[2024-01-03 09:49] VITALS: BP 141/71; PULSE 72; O2SAT 92
== END 2024-01-03 09:53 | disposition home or self-care (01) ==
PROVIDERS: Emergency Provider Emergency Medicine
DX: N30.00 Acute cystitis without hematuria (principal); F17.210 Nicotine dependence, cigarettes, uncomplicated
CPT/HCPCS: 99283

== ENCOUNTER 2024-01-28 18:56 | Emergency (ER) | payer MEDICARE, MEDICAID, SELFPAY ==
[2024-01-28 19:01] VITALS: BP 159/80; PULSE 73; TEMP 36.7; O2SAT 93; BMI 25.5
--- NOTE | 2024-01-28 19:22 | PC.NURSE ---
Got splint wet trying to wash her hair.
--- NOTE | 2024-01-28 19:29 | ED_ITS ---
HPI - Extremity Problem General Chief complaint: Extremity Problem, Nontraumatic Stated complaint: UE ISSUE Time Seen by Provider: 01/28/24 19:03 Source: patient Mode of arrival: ambulance Limitations: no limitations History of Present Illness HPI Narrative: This 74-year-old female who recently broke her left distal forearm and had surgery with Dr. Soto at [facility] presents for evaluation I request for a splint replacement. The patient states that she was washing her hair and got her splint wet. She called Dr. Rayn and was told that if she did not get the splint replaced the night she would get an infection. She broke her left forearm several weeks ago after falling. She has not had any recent injury. She does not have any fever. She states the area on her distal forearm where it is sutured itches but she is not having severe pain. No additional injuries or complaints. She is scheduled to have the splint removed next week and a cast placed over the suture site. Related Data Home Medications ?Medication ?Instructions ?Recorded ?Confirmed amlodipine 10 mg tablet mg 12/13/22 celecoxib 200 mg capsule mg 12/13/22 clonazepam 0.5 mg tablet mg 12/13/22 pantoprazole 40 mg tablet,delayed mg PO 12/13/22 release potassium chloride 10 mEq meq PO 12/13/22 tablet,extended release sodium chloride 1,000 mg soluble mg 12/13/22 tablet trazodone 150 mg tablet mg 12/13/22 ondansetron 4 mg disintegrating 4 mg PO PRN nausea and vomiting 01/03/24 tablet Previous Rx's ?Medication ?Instructions ?Recorded ciprofloxacin HCl 250 mg tablet 250 mg PO BID #10 tabs 01/03/24 Allergies Allergy/AdvReac Type Severity Reaction Status Date / Time haloperidol [From Haldol] Allergy Severe Anaphylaxis Verified 01/28/24 19:07 Phenothiazines Allergy Severe Anaphylaxis Verified 01/28/24 19:07 prochlorperazine AdvReac Severe Anaphylaxis Verified 01/28/24 19:07 [From Compazine] cephalexin [From Keflex] AdvReac Intermediate Nausea Verified 01/28/24 19:07 Review of Systems ROS Status of ROS 10 or more systems reviewed and unremark able except as noted in history and below PFSH PFSH Social History Smoking status: Current some day smoker Exam Narrative Exam Narrative: Vital signs and Nursing Notes reviewed: Patient is afebrile with a normal pulse, blood pressure is elevated at 159/80, she is borderline hypoxic with pulse ox of 93% on room air General: Awake, alert, oriented, no acute distress, lying comfortably on the stretcher HEENT: Normocephalic atraumatic, mucous membranes are moist and pink, eyes are clear, normal conjunctiva, vision is grossly intact Musc: Left distal forearm is in a volar splint, fingers are warm and sensate, patient has a walking boot on her right lower extremity and a lift on her shoe of the left lower extremity Skin: Normal in appearance without rash,pallor, petechiae or purpura Neuro: No focal deficits, patient is ambulatory without difficulty Constitutional Vital Signs, click to edit/add: Last Vital Signs Temp 98.1 F 01/28/24 19:01 Pulse 73 01/28/24 19:01 Resp 16 01/28/24 19:01 BP 159/80 H 01/28/24 19:01 Pulse Ox 93 L 01/28/24 19:01 O2 Del Method Room Air 01/28/24 19:01 Course Vital Signs Vital signs: Vital Signs Temperature 98.1 F 01/28/24 19:01 Pulse Rate 73 01/28/24 19:01 Respiratory Rate 16 01/28/24 19:01 Blood Pressure 159/80 H 01/28/24 19:01 Pulse Oximetry 93 L 01/28/24 19:01 Oxygen Delivery Method Room Air 01/28/24 19:01 Temperature 98.1 F 01/28/24 19:01 Pulse Rate 73 01/28/24 19:01 Respiratory Rate 16 01/28/24 19:01 Blood Pressure 159/80 H 01/28/24 19:01 Pulse Oximetry 93 L 01/28/24 19:01 Oxygen Delivery Method Room Air 01/28/24 19:01 Discharge Plan Discharge Stand Alone Forms: Work/School Release, Portal Instructions Chief Complaint: Extremity Problem, Nontraumatic Clinical Impression: Encounter for replacement of cast Patient Disposition: Home, Self-Care Time of Disposition Decision: 19:28 Condition: Good Prescriptions / Home Meds: No Action ondansetron 4 mg tablet,disintegrating 4 mg PO PRN (Reason: nausea and vomiting) ciprofloxacin HCl 250 mg tablet 250 mg PO BID Qty: 10 0RF celecoxib 200 mg capsule clonazepam 0.5 mg tablet potassium chloride 10 mEq tablet extended release PO amlodipine 10 mg tablet pantoprazole 40 mg tablet,delayed release (DR/EC) PO trazodone 150 mg tablet sodium chloride 1,000 mg tablet,soluble Print Language: Italian Instructions: Splint Care (ED) Referrals: JOSE MASON [Physician] - 1 week Physician,Non-Staff, [Primary Care Provider] - 1 week Procedures ED Procedure Instructions Procedures Procedures: Procedure note: Splint replacement; the left forearm splint was gently removed, the incision site was inspected and is clean dry and intact. There was a xeroform gauze over the incision site which was gently removed. A Vaseline gauze was placed over the suture site and wrapped with a Kerlix. Heavy soft padding was applied over the Curlex dressing and a one-step volar splint was applied and wrapped and placed with 2 Klever wraps. Patient tolerated procedure well and was satisfied with the results. She is neurovascularly intact.
== END 2024-01-28 19:33 | disposition home or self-care (01) ==
PROVIDERS: Emergency Provider Emergency Medicine
DX: S52.92XD Unspecified fracture of left forearm, subsequent encounter for closed fracture with routine healing (principal); F17.200 Nicotine dependence, unspecified, uncomplicated; X58.XXXD Exposure to other specified factors, subsequent encounter
CPT/HCPCS: 29125; 99281

== ENCOUNTER 2024-01-31 11:18 | Emergency (ER) | payer MEDICARE, MEDICAID, SELFPAY ==
[2024-01-31 11:49] VITALS: BP 167/63; PULSE 82; TEMP 36.8; O2SAT 92; BMI 24.6
[2024-01-31 12:22] LABS: Basophils Percent Auto 0.1 % (0.2-2.0); Eosinophils Absolute Auto 0.2 10^3/uL (0.0-0.7); Eosinophils Percent Auto 2.6 % (0.9-7.0); Hematocrit 38.8 % (36.0-48.0); Hemoglobin 12.3 g/dL (12.0-16.0); Immature Granulocytes Abs Auto 0.04 10^3/uL (0.00-0.03); Immature Granulocytes Pct Auto 0.5 % (0.0-0.5); Lymphocytes Absolute Auto 1.2 10^3/uL (1.2-3.8); Lymphocytes Percent Auto 15.3 % (20.5-60.0); Mean Corpuscular HGB Conc 31.7 g/dL (29.9-35.2); Mean Corpuscular Hemoglobin 29.6 pg (26.7-34.0); Mean Corpuscular Volume 93.3 fL (81.0-99.0); Monocytes Absolute Auto 0.7 10^3/uL (0.3-0.8); Monocytes Percent Auto 8.9 % (1.7-12.0); Neutrophils Absolute Auto 5.7 10^3/uL (1.4-6.5); Neutrophils Percent Auto 72.6 % (43.0-75.0); Platelet Count 281 10^3/uL (150-450); Red Blood Count 4.16 10^6/uL (4.20-5.40); Red Cell Distribution Width 11.9 % (11.0-15.0); White Blood Count 7.8 10^3/uL (4.0-11.0)
[2024-01-31 12:38] LABS: Bilirubin Urine NEGATIVE (NEGATIVE); Blood Urine NEGATIVE (NEGATIVE); Clarity Urine CLEAR (CLEAR); Color Urine LT. YELLOW (YELLOW); Glucose Urine UA NEGATIVE (NEGATIVE); Ketones Urine NEGATIVE (NEGATIVE); Leukocyte Esterase Urine TRACE (NEGATIVE); Nitrite Urine NEGATIVE (NEGATIVE); Protein Urine NEGATIVE (NEG/TRACE); Specific Gravity Urine <=1.005 (1.005-1.025); Urobilinogen Urine 0.2 EU/dL (0.2-1.0)
[2024-01-31 12:51] LABS: Alanine Aminotransferase 19 U/L (14-59); Albumin Globulin Ratio 0.9; Albumin Level 3.3 g/dL (3.4-5.0); Alkaline Phosphatase 124 U/L (46-116); Aspartate Amino Transferase 20 U/L (15-37); Bilirubin Total 0.3 mg/dL (0.2-1.0); Calcium 9.1 mg/dL (8.5-10.1); Carbon Dioxide 33.7 mmol/L (21.0-32.0); Chloride 99 mmol/L (98-107); Estimated GFR (African America >60 (>=60); Estimated GFR (Non-African Ame 54 (>=60); Globulin 3.6 g/dL; Glucose 111 mg/dL (74-106); Potassium 3.7 mmol/L (3.5-5.1); Sodium 136 mmol/L (136-145); Total Protein 6.9 g/dL (6.4-8.2)
[2024-01-31 13:12] LABS: Urine Microscopic Indicated YES
--- NOTE | 2024-01-31 13:13 | ED.FEMALEGU1 ---
HPI - Female Genitourinary General Chief complaint: Urogenital-Female Stated complaint: CAN'T URINATE Time Seen by Provider: 01/31/24 11:57 Source: patient Mode of arrival: Wheelchair Limitations: no limitations History of Present Illness HPI Narrative: The patient is coming to the ER after she did not urinate this morning although she had a urination last night. She mentioned that she did not drink enough water since yesterday she denies any fever chills abdominal pain or any other complaints She also denies any burning with urination or any abdominal pain or distention Related Data Home Medications ?Medication ?Instructions ?Recorded ?Confirmed amlodipine 10 mg tablet mg 12/13/22 celecoxib 200 mg capsule mg 12/13/22 clonazepam 0.5 mg tablet mg 12/13/22 pantoprazole 40 mg tablet,delayed mg PO 12/13/22 release potassium chloride 10 mEq meq PO 12/13/22 tablet,extended release sodium chloride 1,000 mg soluble mg 12/13/22 tablet trazodone 150 mg tablet mg 12/13/22 ondansetron 4 mg disintegrating 4 mg PO PRN nausea and vomiting 01/03/24 tablet Previous Rx's ?Medication ?Instructions ?Recorded ciprofloxacin HCl 250 mg tablet 250 mg PO BID #10 tabs 01/03/24 Allergies Allergy/AdvReac Type Severity Reaction Status Date / Time haloperidol [From Haldol] Allergy Severe Anaphylaxis Verified 01/28/24 19:07 Phenothiazines Allergy Severe Anaphylaxis Verified 01/28/24 19:07 prochlorperazine AdvReac Severe Anaphylaxis Verified 01/28/24 19:07 [From Compazine] cephalexin [From Keflex] AdvReac Intermediate Nausea Verified 01/28/24 19:07 Review of Systems ROS Status of ROS 10 or more systems reviewed and unremarkable except as noted in history and below PFSH PFSH Social History Smoking status: Current some day smoker Little interest or pleasure in doing things: not at all Feeling down, depressed, or hopeless: not at all Exam Narrative Exam Narrative: Nurses notes and vital signs reviewed and patient is not hypoxic. General: Well-appearing and in no apparent distress. Skin: Warm, dry, no pallor noted. No rash. Head: Normocephalic, atraumatic. Neck: Supple, non-tender. Eye: Pupils are equal, round and EOMI. No scleral icterus. Ears, Nose, Mouth, and Throat: TM are clear, no nasal mucosal hypertrophy. Oral mucosa is moist, no posterior oropharynx erythema, uvula is mid-line Cardiovascular: Regular Rate and Rhythm without murmur, gallop or rub. Respiratory: No accessory muscle use or respiratory distress. Lungs are clear to auscultation, no wheezing, rales or rhonchi Chest Wall: no tenderness Back: No midline thoracic or lumbar vertebral tenderness. No CVA tenderness Musculoskeletal: normal ROM, no calf or popliteal tenderness, no lower extremity edema/swelling GI: Abdomen is soft, non-distended. Normal bowel sounds. No masses appreciated. No tenderness to palpation. No rebound, guarding, or rigidity noted. Neurological: A&O x4. No cranial nerve dysfunction observed. No truncal ataxia. Moves all extremities. Sensation intact. Psychiatric: Cooperative and interactive. Normal mood and affect. Constitutional Vital Signs, click to edit/add: Last Vital Signs Temp 98.3 F 01/31/24 11:49 Pulse 82 01/31/24 11:49 Resp 16 01/31/24 11:49 BP 167/63 H 01/31/24 11:49 Pulse Ox 92 L 01/31/24 11:49 O2 Del Method Room Air 01/31/24 11:49 Course Vital Signs Vital signs: Vital Signs Temperature 98.3 F 01/31/24 11:49 Pulse Rate 82 01/31/24 11:49 Respiratory Rate 16 01/31/24 11:49 Blood Pressure 167/63 H 01/31/24 11:49 Pulse Oximetry 92 L 01/31/24 11:49 Oxygen Delivery Method Room Air 01/31/24 11:49 Temperature 98.3 F 01/31/24 11:49 Pulse Rate 82 01/31/24 11:49 Respiratory Rate 16 01/31/24 11:49 Blood Pressure 167/63 H 01/31/24 11:49 Pulse Oximetry 92 L 01/31/24 11:49 Oxygen Delivery Method Room Air 01/31/24 11:49 MDM - Female Genitourinary MDM Narrative Medical decision making narrative: The patient CBC and chemistry showed no acute pathology Her abdominal examination was benign and her bladder scan did not show more than 300 cc of urine The patient once she got to the ER she requested some water to drink and she did go to the bathroom and urinate by herself urine sample did not show any infection signs The patient was instructed on hydration The patient is to follow up with primary care physician in next 2-3 days or to return to the emergency department should any of the signs or symptoms worsen or new symptoms develop. The patient agrees with the following Diagnosis and Treatment plan and the patient will be discharged home. Lab Data Labs: Lab Results 01/31/24 01/31/24 Range/Units 12:05 12:21 WBC 7.8 (4.0-11.0) 10^3/uL RBC 4.16 L (4.20-5.40) 10^6/uL Hgb 12.3 (12.0-16.0) g/dL Hct 38.8 (36.0-48.0) % MCV 93.3 (81.0-99.0) fL MCH 29.6 (26.7-34.0) pg MCHC 31.7 (29.9-35.2) g/dL RDW 11.9 (11.0-15.0) % Plt Count 281 (150-450) 10^3/uL MPV 9.0 L (9.5-13.5) fL Neut % (Auto) 72.6 (43.0-75.0) % Lymph % (Auto) 15.3 L (20.5-60.0) % [place] % (Auto) 8.9 (1.7-12.0) % Eos % (Auto) 2.6 (0.9-7.0) % Baso % (Auto) 0.1 L (0.2-2.0) % Neut # (Auto) 5.7 (1.4-6.5) 10^3/uL Lymph # (Auto) 1.2 (1.2-3.8) 10^3/uL [place] # (Auto) 0.7 (0.3-0.8) 10^3/uL Eos # (Auto) 0.2 (0.0-0.7) 10^3/uL Baso # (Auto) 0.0 (0.0-0.1) 10^3/uL Abs Immat Gran (auto) 0.04 H (0.00-0.03) 10^3/uL Imm/Tot Granulo (auto) 0.5 (0.0-0.5) % Sodium 136 (136-145) mmol/L Potassium 3.7 (3.5-5.1) mmol/L Chloride 99 (98-107) mmol/L Carbon Dioxide 33.7 H (21.0-32.0) mmol/L Anion Gap 7.0 BUN 14.0 (7.0-18.0) mg/dL Creatinine 1.00 (0.55-1.02) mg/dL Est GFR ( Amer) >60 (>=60) Est GFR (Non-Af Amer) 54 L (>=60) BUN/Creatinine Ratio 14.0 Glucose 111 H (74-106) mg/dL Calcium 9.1 (8.5-10.1) mg/dL Total Bilirubin 0.3 (0.2-1.0) mg/dL AST 20 (15-37) U/L ALT 19 (14-59) U/L Alkaline Phosphatase 124 H (46-116) U/L Total Protein 6.9 (6.4-8.2) g/dL Albumin 3.3 L (3.4-5.0) g/dL Globulin 3.6 g/dL Albumin/Globulin Ratio 0.9 Urine Color Lt. yellow (YELLOW) Urine Clarity Clear (CLEAR) Urine pH 7.0 (5.0-9.0) Ur Specific [place] <=1.005 A (1.005-1.025) Urine Protein Negative (NEG/TRACE) mg/dL Urine Glucose (UA) Negative (NEGATIVE) mg/dL Urine Ketones Negative (NEGATIVE) mg/dL Urine Occult Blood Negative (NEGATIVE) Urine Nitrite Negative (NEGATIVE) Urine Bilirubin Negative (NEGATIVE) Urine Urobilinogen 0.2 (0.2-1.0) EU/dL Ur Leukocyte Esterase Trace A (NEGATIVE) Urine RBC 0-2 (0-2) #/HPF Urine WBC 0-2 A (NONE SEEN) #/HPF Ur Squamous Epith Cells Few A (NONE/RARE) #/LPF Urine Crystals None seen (None Seen) #/HPF Urine Bacteria Trace A (NONE SEEN) #/HPF Urine Casts None seen (NONE SEEN) #/LPF Urine Mucus None seen (NONE SEEN) Ur Culture Indicated? No Discharge Plan Discharge Chief Complaint: Urogenital-Female Clinical Impression: Oliguria Patient Disposition: Home, Self-Care Time of Disposition Decision: 13:14 Condition: Good Prescriptions / Home Meds: No Action ondansetron 4 mg tablet,disintegrating 4 mg PO PRN (Reason: nausea and vomiting) ciprofloxacin HCl 250 mg tablet 250 mg PO BID Qty: 10 0RF celecoxib 200 mg capsule clonazepam 0.5 mg tablet potassium chloride 10 mEq tablet extended release PO amlodipine 10 mg tablet pantoprazole 40 mg tablet,delayed release (DR/EC) PO trazodone 150 mg tablet sodium chloride 1,000 mg tablet,soluble Print Language: Polish Instructions: Dehydration (DC) Referrals: Physician,Non-Staff, MD [Physician] - 1 week Discharge Date/Time: 01/31/24 13:48
[2024-01-31 13:27] LABS: Bacteria Urine TRACE #/HPF (NONE SEEN); Cast Seen? NONE SEEN #/LPF (NONE SEEN); Crystals Seen? None Seen #/HPF (None Seen); Mucus Urine NONE SEEN (NONE SEEN); RBC Urine 0-2 #/HPF (0-2); Squamous Epithelial Cell Urine FEW #/LPF (NONE/RARE); Urine Culture Indicated NO; WBC Urine 0-2 #/HPF (NONE SEEN)
--- OUTSIDE RECORDS SUMMARY | 2024-01-31 13:54 | XMS_ITS | CCD ---
Author Organization [facility] Care Team Providers Care Database Management System Specialist Name Role Phone JAMES CANCHOLA Unavailable Unavailable SELF, REFERRED Unavailable Unavailable STORMY JAMES Unavailable Unavailable TOMAS FARRELL Unavailable Unavailable Tomas Farrell Primary Care Provider [phone] Tomas Farrell DO Primary Care Provider Tomas Farrell DO Primary Care Provider Tomas FARRELL Primary Care Physician Cady Montoya Unavailable Unavailable Zahira Flores Unavailable Unavailable Alka Tony Unavailable Unavailable Tomas Farrell DO Primary Care Provider DO Tomas Farrell Primary Care Provider DO Maciej Rodriguez Emergency Provider [phone] [facility] Jennifer E Emergency Provider CARSON Moss E Emergency Provider MD Jaxon Buchanan Jr Emergency Provider DO King Carvajal Emergency Provider [phone] DO Albino Ballard Emergency Provider [phone] Tomas Farrell DO S Primary Care Provider Erica Freeman Unavailable Unavailable Tomas Farrell DO S Primary Care Provider Emilia Barrera Unavailable Unavailable Tomas Farrell DO S Primary Care Provider Nora Mccallum Unavailable Tomas Farrell DO Primary Care Provider Jose DO, Tomas S Primary Care Provider Nora Mccallum Unavailable DO Gui Farrellory S Primary Care Provider MD Merary De Admit Provider [phone] MD Merray De Attending Provider JONAH Gomez Other Provider FARHANA Toro Other Provider MD Clark Hernandez S Other Provider MD Jaxon Arzola Other Provider JOSE TOMAS Chey Primary Care Unavailable GEHLOT, UPENDER Attending Unavailable JOSE, TOMAS S Primary Care Unavailable GEHLOT, UPENDER Attending Unavailable GEHLOT, UPENDER Attending Unavailable JOSE, TOMAS S Primary Care Unavailable JOSE, TOMAS S Primary Care Unavailable GEHLOT, UPENDER Attending Unavailable Clark Hernandez Unavailable URIEL ., LULA ARMANDO Consulting Unavailabl e JOSE, DR TOMAS Guerrier Primary Care Unavailable HAY ., DR ROSAS Attending Unavailable HAY ., DR ROSAS Admitting Unavailable JOSE, DR TOMAS Guerrier Primary Care Unavailable [place], DR JOSE Edouard Consulting Unavailable HIGHLANDER, ELIZABETH Griffin Admitting Unavailable HIGHLANDER, ELIZABETH Griffin Attending Unavailable HIGHLELIZABETH BOWMAN Consulting Unavailable MISC, DR MACDONALD Admitting Unavailable MISC, DR MACDONALD Attending Unavailable MISC, DR MACDONALD Consulting Unavailable MISC, DR MACDONALD Primary Care Unavailable MISC, DR MACDONALD Primary Care Unavailable MINO, YAAKOV Admitting Unavailable MINO, YAAKOV Attending Unavailable URIEL ., LULA ARMANDO Consulting Unavailabl e YAAKOV HERZOG Consulting Unavailable PAY ., DR GUZMÁN Admitting Unavailable MISC, DR MACDONALD Primary Care Unavailable PAY ., DR GUZMÁN Attending Unavailable PAY ., DR GUZMÁN Consulting Unavailable URIEL ., LULA ARMANDO Consulting Unavailabl e MISC, DR MACDONALD Primary Care Unavailable MINO, YAAKOV Admitting Unavailable MINO, YAAKOV Attending Unavailable JORGE WOODS Consulting Unavailable JOSE, DR TOMAS Guerrier Primary Care Unavailable HAY ., DR ROSAS Admitting Unavailable HAY ., DR ROSAS Attending Unavailable HAY ., DR ROSAS Consulting Unavailable JOSE, DR TOMAS Guerrier Primary Care Unavailable MINO, YAAKOV Admitting Unavailable MINO, YAAKOV Attending Unavailable JOSE, Tomas S Primary Care Physician NONE, XXXX Primary Care Physician Unavailab le Dolly Valenzuela Unavailable Dolly Valenzuela Primary Care Physician Jose GO Tomas S Primary Care Provider Kwabena RAMOS, [facility] Primary Care Provider TOMAS FARRELL Primary Care Unavailable FRANTZ CURRAN Attending Unavailable TOMAS FARRELL Primary Care Unavailable TOMAS FARRELL Primary Care Unavailable QUYNH HERNANDEZ Attending Unavailable FRANTZ CURRAN Referring Unavailable [facility] Primary Care Unavailable MONSE ALCOCER Referring Unavailable [facility] Primary Care Unavailable ISAI ALFONSO Referring Unavailable SVITLANA Ortiz Emergency Provider Dolly Valenzuela Primary Care Provider AZUL BATEAMN Primary Care Physician SVITLANA Ortiz Emergency Provider Dolly Valenzuela Primary Care Provider [facility] Primary Care Provider CARSON Torres Emergency Provider MD Hailey Arechigami Admit Provider MD Julian Arechiga Attending Provider [phone] NO FAMILY, PHYSICIAN Primary Care Provider Unava ilable DO Maciej Rodriguez Emergency Provider Senthil Torres Attending Unavailable [facility] Primary Care Unavaila ble Senthil Torres Admitting Unavailable Maciej Rodriguez Admitting Unavailable Maciej Rodriguez Attending Unavailable Dolly Valenzuela Primary Care Unavailable Tomas Farrell Primary Care Unavailable Rogelio De Admitting Unavailab le Rogelio De Attending Unavailab Julian Manriquez Admitting Unavailable Julian Arechiga Attending Unavailable NO FAMILY, PHYSICIAN Primary Care Unavailable Dolly Valenzuela Primary Care Unavailable Bebe Ortiz Admitting Unavailable Bebe Ortiz [facility]ending [facility] Unavailable Black, Basem G. Attending Unavailable Black, Basem G. Referring [facility] Unavailable SLINGWINE, JAMILAH L. Admitting Unavailable SLINGWINE, JAMILAH L. Attending Unavailable [facility] Unavailable FRANSICO AZUL Attending [facility] Admitting Unavailable Meg Rebolledo V Unavailable Unavailable iDdier Hooks H Attending Unavailable Black, Basem G. Attending Unavailable FRANSICO, [facility] Unavail able Black, Basem G. Attending Unavailable FRANSICO, [facility] J Referring Unavail able FRANSCIO, [facility] Care Unavail able Johny Willson Attending Unavailable FRANSICO, [facility] J Admitting Unavail able FRANSICO, [facility] Attending Unavail able FRANSICO, [facility] Unavail able SLINGWINE, JAMILAH L. Admitting Unavailable SLINGWINE, JAMILAH L. Attending Unavailable SLINGWINE, JAMILAH L. Admitting Unavailable SLINGWINE, JAMILAH L. Attending Unavailable Amarilis Gold Attending Unavailable FRANSICO, [facility] Unavail able Black, Basem G. Attending Unavailable Black, Basem G. Referring [facility]available [facility] Unavail able FRANSICO, [facility] J Admitting Unavail able FRANSICO, [facility] Attending Unavail able [facility]avail able FRANSICO, [facility] Primary Care Unavail able Ana Gandhi Admitting Unavailable ALAYAEL Alaa Attending Unavailable Len, Santiago SKaran Attending Unavailable Mati Taylor Attending Unavailable Mati Taylor Attending Unavailable Johny Willson Attending Unavailable FRANSICO, [facility] Unavail able FRANSICO, [facility] Primary Care Unavail able Johny Willson Attending Unavailable Johny Willson Attending Unavailable [facility] Unavail able Johny Willson Attending Unavailable Chandan Adhikari Attending Unavailable Chandan Adhikari Attending Unavailable Mati Taylor Attending Unavailable Amarilis Gold Attending Unavailable Amarilis Gold Admitting Unavailable [facility] Primary Care Un[facility] Primary Care Unavailable JAMILAH TURNER Attending Unavailable JAMILAH TURNER Admitting Unavailable Pocos, Jose Staton Admitting Unavailable Pocos, Jose Staton Attending Unavailable FLYNN BATEMANHANIE Primary Care Unavailable POCJOSE IGLESIAS Attending Unavailable POCJOSE IGLESIAS Referring Unavailable POCJOSE IGLESIAS Attending Unavailable FRANSICO AZUL Primary Care Unavailable Pocos, Jose Staton Admitting Unavailable Pocos, Jose Staton Attending Unavailable [facility] Primary Care Unavailable Mati Taylor Attending Unavailable Didier Hooks Attending Unavailable [facility] Primary [facility] [place] Unavailable Allergies Allergy Classification Reported Allergen(s) Allergy Type Date of Onset Reaction(s) Facility Acetaminophen / HYDROcodone (2 sources) Acetaminophen / HYDROcodone Drug Allergy 04-03-20 15 [facility] Anti-Epileptic Agents (2 sources) gabapentin Drug Allergy 05-01-20 20 Unknown [facility] Bacitracin (2 sources) Bacitracin Drug Allergy 09-28-19 18 Swelling, Unknown [facility] Butorphanol (2 sources) Butorphanol Drug Allergy 05-01-20 20 [facility] Haloperidol (2 sources) Haloperidol Drug Allergy 08-30-19 11 Shortness Of Breath [facility] Methylphenidate (2 sources) Methylphenidate Drug Allergy 05-01-20 20 Unknown [facility] Mirtazapine (2 sources) Mirtazapine Drug Allergy 05-01-20 20 Unknown [facility] Opioid Agonists (4 sources) fentaNYL Drug Allergy 09-17-19 15 Swelling [facility] Penicillins (antibiotic) (2 sources) Phenothiazine Drug Allergy 08-28-19 11 Shortness Of Breath [facility] Pentoxifylline (2 sources) Pentoxifylline Drug Allergy 08-17-19 20 [facility] Prochlorperazine (2 sources) Prochlorperazine Drug Allergy 04-03-20 15 [facility] QUEtiapine (2 sources) QUEtiapine Drug Allergy 05-01-20 20 Unknown [facility] risperiDONE (2 sources) risperiDONE Drug Allergy 05-01-20 20 Unknown [facility] Shellfish (2 sources) Shellfish Food Allergy 09-28-19 18 [facility] Valproate (2 sources) Valproate Drug Allergy 05-01-20 20 [facility] (7 sources) bacitracin; Translations: [BACITRACIN] Drug Allergy 09-28-19 18 [facility] Repository (1 source) bacitracin / neomycin / polymyxin b Drug Allergy 09-28-19 [facility] Repository (5 sources) butorphanol; Translations: [Stadol] Drug Allergy 09-28-19 18 [facility] Repository (7 sources) methadone; Translations: [METHADONE] Drug Allergy 09-17-19 15 [facility] Repository (14 sources) Phenothiazine; Translations: [PHENOTHIAZINES] Drug allergy (disorder) 08-28-19 11 Shortness Of Breath [facility] Repository (7 sources) prochlorperazine Drug Allergy 09-28-19 [facility], Unknown Reaction [facility] Repository (20 sources) Shellfish; Translations: [SHELLFISH DERIVED] Drug allergy (disorder) 09-28-19 Other: See Comments [facility] Repository (1 source) pulse ox probe/tape; Translations: [pulse ox probe/tape] Propensity to adverse reactions (disorder) 09-29-19 [facility] Repository (20 sources) Acetaminophen / HYDROcodone; Translations: [HYDROCODONE-ACETAM INOPHEN] Drug Allergy 04-03-20 Other: See Comments [facility] (20 sources) Bacitracin; Translations: [bacitracin] Drug Allergy 09-28-19 Swelling, Unknown [facility] (20 sources) Butorphanol; Translations: [butorphanol] Drug Allergy 05-01-20 20 delusions [facility] (20 sources) fentaNYL; Translations: [FENTANYL] Drug Allergy 11-11-19 Other: See Comments [facility] (20 sources) gabapentin; Translations: [gabapentin] Drug Allergy 05-01-20 Unknown, Unknown (qualifier value) [facility] (20 sources) Haloperidol; Translations: [haloperidol] Drug Allergy 08-30-19 11 Shortness Of Breath [facility] (20 sources) Methadone; Translations: [methadone] Drug Allergy 09-17-19 15 Swelling [facility] (20 sources) Methylphenidate; Translations: [methylphenidate] Drug Allergy 05-01-20 20 Unknown, Unknown (qualifier value) [facility] (20 sources) Mirtazapine; Translations: [mirtazapine] Drug Allergy 05-01-20 20 Unknown, Unknown (qualifier value) [facility] (16 sources) Pentoxifylline; Translations: [PENTOXIFYLLINE] Drug Allergy 08-17-19 20 [facility] (20 sources) Prochlorperazine; Translations: [PROCHLORPERAZINE EDISYLATE] Drug Allergy 08-28-19 11 Unknown [facility] (20 sources) QUEtiapine; Translations: [quetiapine] Drug Allergy 05-01-20 20 Unknown, Unknown (qualifier value) [facility] (20 sources) risperiDONE; Translations: [risperidone] Drug Allergy 05-01-20 Unknown, Unknown (qualifier value) [facility] (16 sources) Valproate; Translations: [DIVALPROEX SODIUM] Drug Allergy 05-01-20 20 [facility] (11 sources) Phenothiazine Propensity to adverse reactions to drug 08-28-19 11 Shortness Of Breath [facility] (20 sources) Prochlorperazine; Translations: [prochlorperazine] Drug Allergy anaphylaxis [facility] (20 sources) Shellfish; Translations: [shellfish] Food allergy [facility] (20 sources) Valproate; Translations: [divalproex sodium] Drug Allergy unsteady [facility] Comment on above: causes her to be uns teady causes her to be uns teady (20 sources) Adhesive Tape; Translations: [ADHESIVE TAPE (ROSINS)] Allergy to substance 08-30-19 11 Rash [facility] (20 sources) Haloperidol; Translations: [HALOPERIDOL LACTATE] Drug Allergy 08-30-19 11 Shortness of Breath [facility] (7 sources) oxyCODONE; Translations: [oxycodone] Drug Allergy 10-05-19 Unknown Reaction [facility] (7 sources) Thiothixene; Translations: [thiothixene] Drug Allergy 10-05-19 22 Unknown Reaction [facility] (20 sources) Cephalexin; Translations: [CEPHALEXIN] Drug Allergy 12-05-19 22 Anaphylaxis [facility] Work Phone: (20 sources) Phenothiazine Drug Allergy 08-28-19 11 Shortness of Breath [facility] (1 source) acetophenazine Drug Allergy 04-10-20 22 [facility] (1 source) Cephalexin Drug Allergy [facility] (2 sources) Prochlorperazine Drug Allergy [facility] Rep[facility] (1 source) fentaNYL Drug Allergy 08-22-19 [facility] Repository (1 source) Phenothiazine Drug allergy (disorder) 08-22-19 [facility] Rep[facility] (1 source) Prochlorperazine Drug Allergy 08-22-19 [facility] Rep[facility] (4 sources) Bacitracin / Neomycin / Polymyxin B; Translations: [Neosporin] Drug Allergy [facility] Rep[facility] (4 sources) gabapentin; Translations: [Neurontin] Drug Allergy [facility] (4 sources) Haloperidol; Translations: [Haldol] Drug Allergy [facility] (4 sources) Methylphenidate; Translations: [Ritalin] Drug Allergy [facility] (4 sources) Mirtazapine; Translations: [Remeron] Drug Allergy [facility] (4 sources) Naloxone; Translations: [Narcan] Drug Allergy [facility] (4 sources) QUEtiapine; Translations: [SEROquel] Drug Allergy [facility] (4 sources) risperiDONE; Translations: [RisperDAL] Drug Allergy [facility] (4 sources) Valproate; Translations: [Depakote] Drug Allergy [facility] Repository Medications Current Medications Medication Drug Class(es) Dates Sig (Normalized) Sig (Original) acetaminophen 325 mg oral tablet (20 sources) Start: 03-12-2021 take 2 tablets by mouth every four hours as needed for pain acetaminophen 325 mg Tab 650 mg = 2 tab(s), Oral, q4hr, PRN for pain Start Date: 03/12/21 Status: Ordered acetaminophen 500 mg / diphenhydrAMINE hydrochloride 25 mg oral tablet (17 sources) Histamine-1 Receptor Antagonist take 1 tablet by mouth once daily as needed diphenhydrAMINE-rufina taminophen (TYLENOL PM) 25-500 mg Tab Take 1 tablet by mouth nightly as needed 0 Active acetaminophen 325 mg / oxyCODONE hydrochloride 5 mg oral tablet (19 sources) Opioid Agonist Start: 01-10-2024 End: 01-13-2024 Percocet 5 mg-325 mg oral tablet 1 tab(s), Oral, q6hr for 3 day(s), 12 tab(s), Refill(s) 0, [facility]/pharmacy #[id number], 162, cm, 01/10/24 20:56:00 EDT, Height/Length Dosing, 61, kg, 01/10/24 20:56:00 EDT, Weight Dosing Start Date: 01/10/24 Stop Date: 01/13/24 Status: Ordered Start: 03-24-2015 take 1 tablet by cachorro th every four hours as needed oxyCODONE-acetaminophen (PERCOCET) 5-325 mg per tablet Take 1 tablet by mouth every 4 to 6 hours as needed 0 03/24/2015 Active [id number] 200 actuat albuterol 0.09 mg/actuat metered dose inhaler (17 sources) beta2-Adrenergic Agonist take 1 puff(s) by inhalation every four hours as needed for wheezing albuterol (PROVENTIL HFA;VENTOLIN HFA) 90 mcg/actuation inhaler Inhale 1 puff every 4 (four) hours as needed for wheezing 0 Active take 1 puff(s) by in halation every four hours as needed for wheezing albuterol (PROVENTIL HFA;VENTOLIN HFA) 9 0 mcg/actuation inhaler Inhale 1 puff every 4 (four) hours as needed for wheezing 0 Active albuterol 0.833 mg/ml / ipratropium bromide 0.167 mg/ml inhalation solution (13 sources) Anticholinergic, beta2-Adrenergic Agonist Start: 05-02-2021 take 3 mL by inhalation four times daily DuoNeb 2.5 mg-0.5 mg/3 mL Soln-Inh 3 mL, Inhalation, QID, 360 mL, Refill(s) 1, [facility]/pharmacy #[id number], 180.3, cm, 03/20/21 9:01:00 EDT, Height/Length Dosing, 65.6, kg, 03/20/21 8:59:00 EDT, Weight Dosing Start Date: 05/02/21 Status: Ordered albuterol HFA 90 mcg/inh MDI (20 sources) Start: 08-13-2020 take 2 puff(s) by inhalation four times daily for wheezing albuterol HFA 90 mcg/inh MDI 2 puff(s), Inhalation, QID for wheezing, 6.7 gram, Refill(s) 0, [facility]/pharmacy #[id number], 180.3, cm, 08/11/20 1:10:00 EDT, Height/Length Dosing, 66, kg, 08/11/20 1:10:00 EDT, Weight Dosing Start Date: 08/13/20 Status: Ordered amLODIPine 10 mg oral tablet (20 sources) Dihydropyridine Calcium Channel Alberto Start: 06-11-2022 take 10 mg by mouth once daily Amlodipine Active 10 MG PO Daily 0 June 11, 2022 1:00am Start: 05-24-2022 take 1 tablet by cachorro th once daily amLODIPine 5 mg Tab 5 mg = 1 tab(s), Oral, Daily, TAKE 1 TABLET BY MOUTH EVERY DAY Start Date: 05/24/22 Status: Ordered Start: 01-14-2022 take 1 tablet by cachorro th once daily amLODIPine 5 mg Tab 5 mg = 1 tab(s), Oral, Daily, # 90 tab(s), Refills(s) 3, Pharmacy: [facility]/pharmacy #[id number], 154.9, cm, 12/20/21 13:56:00 EDT, Height/Length Dosing, 63.8, kg, 12/20/21 13:56:00 EDT, Weight Dosing Start Date: 01/14/22 Status: Ordered Start: 12-17-2021 End: 12-17-2021 amLODIPine 5 mg Tab 5 mg = 1 tab(s), Tab, Oral, Start date 12/17/21 9:00:00 EDT, 12/16/21 13:16:00 EDT Start Date: 12/17/21 Stop Date: 12/17/21 Status: Completed Start: 10-28-2019 End: 06-11-2022 take 5 mg by mouth once daily Amlodipine Discontinued 5 MG PO Daily August 07, 2021 12:00am June 11, 2022 11:09am Comment on above: Take 5 mg by mouth o nce daily. apixaban 5 mg oral tablet (20 sources) Factor Xa Inhibitor Start: 5 take 1 tablet by mouth once daily ELIQUIS 5 mg Tab Take 5 mg by mouth daily 0 03/14/2015 Active Comment on above: Take by mouth once d aily. busPIRone hydrochloride 15 mg oral tablet (1 source) Start: 4 take 1 tablet by mouth twice daily BuSpar 15 MG tablet Orally Twice times a day for Dec, Active celecoxib 200 mg oral capsule (20 sources) Nonsteroidal Anti-inflammatory Drug Start: 4 take 200 mg by mouth once daily Celebrex 200 mg, Oral, Daily, Refills(s) 0 Start Date: 09/08/23 Status: Ordered Start: 03-18-2015 End: 06-11-2022 take 200 mg by mouth once daily Celebrex 200 mg, Oral, Daily, Refills(s) 0 Start Date: 09/08/23 Status: Ordered Comment on above: Take 200 mg by mouth once daily. Centrum Silver oral tablet (20 sources) Start: 03-12-2021 take 1 tablet by mouth once daily Centrum Silver oral tablet 1 tab(s), Oral, Daily Start Date: 03/12/21 Status: Ordered cephalexin 500 mg oral capsule (15 sources) Cephalosporin Antibacterial Start: 08-10-2023 End: 08-17-2023 take 1 capsule by mouth every twelve hours Keflex 500 mg Cap 500 mg = 1 cap(s), Oral, q12hr, X 7 day(s), # 14 cap(s), Refills(s) 0, Pharmacy: [facility]/pharmacy #[id number], 155, cm, 08/09/23 23:21:00 EDT, Height/Length Dosing, 67.6, kg, 08/09/23 23:21:00 EDT, Weight Dosing Start Date: 08/10/23 Stop Date: 08/17/23 Status: Ordered Start: 07-05-2023 End: 08-22-2023 take 500 mg by mouth three times daily Cephalexin Discontinued 500 MG PO Three times daily 24 03July 05, 2023 1:00am August 22, 2023 1:35pm Start: 03-04-2022 End: 03-09-2022 take 1 capsule by mouth every twelve hours cephalexin 500 mg Cap 500 mg = 1 cap(s), Oral, q12hr, X 5 day(s), # 10 cap(s), Refills(s) 0, [id number] 154, cm, 03/04/22 13:21:00 EDT, Height/Length Dosing, 57, kg, 03/04/22 13:21:00 EDT, Weight Dosing Start Date: 03/04/22 Stop Date: 03/09/22 Status: Ordered Start: 11-17-2021 take 1 capsule by [facility] every twelve hours Keflex 500 mg Cap 500 mg = 1 cap(s), Oral, q12hr, # 20 cap(s), Refills(s) 0, Pharmacy: [facility]/pharmacy #[id number], 157, cm, 11/16/21 15:24:00 EDT, Height/Length Dosing, 60, kg, 11/16/21 15:24:00 EDT, Weight Dosing Start Date: 11/17/21 Status: Ordered Start: 10-26-2021 End: 10-31-2021 take 1 capsule by mouth three times daily Keflex 500 mg Cap 500 mg = 1 cap(s), Oral, TID, X 5 day(s), # 15 cap(s), Refills(s) 0 Start Date: 10/26/21 Stop Date: 10/31/21 Status: Ordered Start: 07-15-2021 take 1 capsule by [facility] every twelve hours cephalexin 500 mg Cap 500 mg = 1 cap(s), Oral, q12hr, # 14 cap(s), Refills(s) 0, Pharmacy: [facility] #[id number], 155, cm, 07/15/21 13:55:00 EST, Height/Length Dosing, 67, kg, 07/15/21 13:55:00 EST, Weight Dosing Start Date: 07/15/21 Status: Ordered ciprofloxacin 250 mg oral tablet (20 sources) Quinolone Antimicrobial Start: 08-10-2023 End: 08-17-2023 take 1 tablet by mouth every twelve hours Cipro 250 mg Tab 250 mg = 1 tab(s), Oral, q12hr, X 7 day(s), # 14 tab(s), Refills(s) 0, [id number], cm, 08/09/23 23:21:00 EDT, Height/Length Dosing, 67.6, kg, 08/09/23 23:21:00 EDT, Weight Dosing Start Date: 08/10/23 Stop Date: 08/17/23 Status: Ordered Start: 11-16-2021 End: 11-23-2021 take 1 tablet by mouth every twelve hours Cipro 250 mg Tab 250 mg = 1 tab(s), Oral, q12hr, X 7 day(s), # 14 tab(s), Refills(s) 0, Pharmacy: [facility]/pharmacy #[id number], 157, cm, 11/16/21 15:24:00 EDT, Height/Length Dosing, 60, kg, 11/16/21 15:24:00 EDT, Weight Dosing Start Date: 11/16/21 Stop Date: 11/23/21 Status: Ordered Start: 11-07-2021 End: 11-14-2021 take 1 tablet by mouth every twelve hours Cipro 250 mg Tab 250 mg = 1 tab(s), Oral, q12hr, X 7 day(s), # 14 tab(s), Refills(s) 0, Pharmacy: [facility]/pharmacy #[id number], 157, cm, 11/07/21 8:56:00 EDT, Height/Length Dosing, 59.9, kg, 11/07/21 8:56:00 EDT, Weight Dosing Start Date: 11/07/21 Stop Date: 11/14/21 Status: Ordered Start: 09-07-2021 take 1 tablet by cachorro th twice daily Cipro 500 mg Tab 500 mg = 1 tab(s), Oral, BID, # 14 tab(s), Refills(s) 0, Pharmacy: [facility]/pharmacy #[id number], 157, cm, 09/07/21 5:48:00 EDT, Height/Length Dosing, 63.8, kg, 09/07/21 5:48:00 EDT, Weight Dosing Start Date: 09/07/21 Status: Ordered Start: 07-19-2021 End: 05-25-2022 take 1 tablet by mouth every two hours Ciprofloxacin Hcl (Cipro) 500 mg tablet Discontinued 500 MG PO Twice daily July 19, 2021 1:00am May 25, 2022 9:39pm administer dose at least 2 hrs before/6 hrs after dairy products, calcium, zinc, and/or iron-containing products cyclobenzaprine hydrochloride 10 mg oral tablet (17 sources) Muscle Relaxant Start: 03-24-2015 take 1 tablet by mouth twice daily cyclobenzaprine (FLEXERIL) 10 MG tablet Take 10 mg by mouth 2 (two) times a day 0 03/24/2015 Active diazePAM vaginal suppository 5 mg (CPD) (2 sources) Start: 10-02-2021 End: 11-17-2021 diazePAM vaginal suppository 5 mg (CPD) Indications: Pelvic floor dysfunction Unwrap and insert 1 suppository vaginally once daily for 30 days as directed. 30 Suppository 5 10/02/2021 11/17/2021 Active Start: 10-02-2021 End: 11-01-2021 diazePAM vaginal suppository 5 mg (CPD) Indications: Pelvic floor dysfunction Unwrap and insert 1 suppository vaginally once daily for 30 days as directed. 30 Suppository 5 10/02/2021 11/01/2021 Active Comment on above: Unwrap and insert 1 suppository vaginally once daily for 30 days as directed. dicyclomine hydrochloride 10 mg oral capsule (4 sources) Anticholinergic Start: End: take 1 capsule by mouth four times daily Bentyl 10 mg Cap 10 mg = 1 cap(s), Oral, QID, X 7 day(s), # 14 cap(s), Refills(s) 0 Start Date: 01/30/22 Stop Date: 02/06/22 Status: Ordered docusate sodium 100 mg oral capsule (20 sources) Start: take 1 capsule by mouth twice daily for diarrhea Colace 100 mg Cap 100 mg = 1 cap(s), Oral, BID, Hold for diarrhea, # 60 cap(s), Refills(s) 0, Pharmacy: [facility]/pharmacy #[id number], 155, cm, 12/16/21 7:46:00 EDT, Height/Length Dosing, 60.4, kg, 12/16/21 7:46:00 EDT, Weight Dosing Start Date: 12/17/21 Status: Ordered donepezil hydrochloride 5 mg oral tablet (1 source) Start: take 5 mg by mouth once daily at bedtime Donepezil Active 5 MG PO Daily at bedtime September 06, 2023 12:00am DuoNeb 2.5 mg-0.5 mg/3 mL Soln-Inh (20 sources) Start: take 3 mL by inhalation four times daily DuoNeb 2.5 mg-0.5 mg/3 mL Soln-Inh 3 mL, Inhalation, QID, 360 mL, Refill(s) 1, [facility]/pharmacy #[id number], 180.3, cm, 03/20/21 9:01:00 EDT, Height/Length Dosing, 65.6, kg, 03/20/21 8:59:00 EDT, Weight Dosing Start Date: 05/02/21 Status: Ordered famotidine 20 mg oral tablet (6 sources) Histamine-2 Receptor Antagonist Start: End: take 1 tablet by mouth once daily famotidine 20 mg Tab 20 mg = 1 tab(s), Oral, Daily, X 30 day(s), # 30 tab(s), Refills(s) 0, Pharmacy: [facility]/pharmacy #[id number], 155, cm, 02/03/22 10:02:00 EDT, Height/Length Dosing, 58.8, kg, 02/04/22 7:14:00 EDT, Weight Dosing Start Date: 02/05/22 Stop Date: 03/07/22 Status: Ordered ferrous sulfate 325 mg oral tablet (20 sources) Start: take 1 tablet by mouth three times daily ferrous sulfate 325 mg Tab 325 mg = 1 tab(s), Oral, TID, # 90 tab(s), Refills(s) 0, Pharmacy: [facility]/pharmacy #[id number], 155, cm, 12/16/21 7:46:00 EDT, Height/Length Dosing, 60.4, kg, 12/16/21 7:46:00 EDT, Weight Dosing Start Date: 12/17/21 Status: Ordered Comment on above: Take by mouth. fluticasone propionate 0.05 mg/actuat metered dose nasal spray (20 sources) Corticosteroid Start: fluticasone 0.05 mg/inh Nasal Britt 2 spray(s), Nasal, Daily, 1 EA, Refill(s) 5, each nostril, [facility]/pharmacy #[id number], 157, cm, 11/17/21 17:26:00 EDT, Height/Length Dosing, 60, kg, 11/17/21 17:26:00 EDT, Weight Dosing Start Date: 11/21/21 Status: Ordered Start: 09-08-2021 Fluticasone Pr opionate Active 2 SPRAY INTRANASAL Daily September 08, 2021 12:00am each nares Start: 05-28-2021 fluticasone 0. 05 mg/inh Nasal Britt 2 spray(s), Nasal, Daily, 1 EA, Refill(s) 5, each nostril, [facility]/pharmacy #[id number], 157, cm, 05/26/21 11:56:00 EST, Height/Length Dosing, 66, kg, 05/26/21 11:56:00 EST, Weight Dosing Start Date: 05/28/21 Status: Ordered fluticasone 0.05 mg/inh Nasa l Britt (20 sources) Start: 11-21-2021 fluticasone 0. 05 mg/inh Nasal Britt 2 spray(s), Nasal, Daily, 1 EA, Refill(s) 5, each nostril, [facility]/pharmacy #[id number], 157, cm, 11/17/21 17:26:00 EDT, Height/Length Dosing, 60, kg, 11/17/21 17:26:00 EDT, Weight Dosing Start Date: 11/21/21 Status: Ordered Start: 05-28-2021 fluticasone 0. 05 mg/inh Nasal Britt 2 spray(s), Nasal, Daily, 1 EA, Refill(s) 5, each nostril, [facility]/pharmacy #[id number], 157, cm, 05/26/21 11:56:00 EST, Height/Length Dosing, 66, kg, 05/26/21 11:56:00 EST, Weight Dosing Start Date: 05/28/21 Status: Ordered 2 ml gentamicin 40 mg/ml injection (1 source) Start: 02-07-2022 End: 02-07-2022 gentamicin 40 mg/mL 80 mg injection hydroCHLOROthiazide 25 mg oral tablet (1 source) Thiazide Diuretic take 1 tablet by mouth every twenty-fou r hours hydroCHLOROthiazide 25 MG 1 tablet Orally Once a day Active levoFLOXacin 500 mg oral tablet (1 source) Quinolone Antimicrobial Start: 04-01-2022 End: 04-11-2022 take 1 tablet by mouth every twenty-fou r hours Levaquin 500 mg Tab 500 mg = 1 tab(s), Oral, q24hr, X 10 day(s), # 10 tab(s), Refills(s) 0, Pharmacy: [facility]/pharmacy #[id number], 154, cm, 03/04/22 13:21:00 EDT, Height/Length Dosing, 57, kg, 03/04/22 13:21:00 EDT, Weight Dosing Start Date: 04/01/22 Stop Date: 04/11/22 Status: Ordered lidocaine hydrochloride 0.02 mg/mg topical gel (1 source) Antiarrhythmic, Amide Local Anesthetic Start: 02-07-2022 End: 02-07-2022 lidocaine urojet 2 % 6 mL topical gel (XYLOCAINE, GLYDO) loratadine 10 mg oral tablet (2 sources) Start: 08-27-2023 take 10 mg by mouth once daily Loratadine Active 10 MG PO Daily August 27, 2023 12:00am Miralax 17 gram packet (20 sources) Start: 12-16-2021 take 17 g by mouth once daily Miralax 17 gram packet 17 gm, Oral, Daily, Refills(s) 0 Start Date: 12/16/21 Status: Ordered Miralax 3350 17 gram packet (2 sources) Start: 02-26-2020 Miralax 3350 17 gram packet 17 gram, Oral, Daily, # 255 gram, Refills(s) 1, Pharmacy: [facility]/pharmacy #[id number], 155, cm, 02/25/20 9:42:00 EDT, Height/Length Dosing, 69.9, kg, 02/25/20 9:42:00 EDT, Weight Dosing Start Date: 02/26/20 Status: Ordered mupirocin 0.02 mg/mg topical ointment (20 sources) RNA Synthetase Inhibitor Antibacterial Start: 05-24-2022 End: 06-11-2022 mupirocin Top 2% Oint 1 ramila, Topical, TID, 22 gram, Refill(s) 0, [facility]/pharmacy #[id number], 155, cm, 05/24/22 13:37:00 EST, Height/Length Dosing, 58, kg, 05/24/22 13:37:00 EST, Weight Dosing Start Date: 05/24/22 Status: Ordered naloxone hydrochloride 40 mg/ml nasal spray (9 sources) Opioid Antagonist Start: 07-17-2021 naloxone (NARCAN) 4 mg/actuation [place] Administer 1 spray into one nostril for known or suspected opioid overdose. If patient worsens or does not respond, may repeat in 2-3 minutes. . 2 each 1 07/17/2021 Active nitrofurantoin, macrocrystals 100 mg oral capsule (11 sources) Nitrofuran Antibacterial Start: 10-20-2021 End: 10-27-2021 take 1 capsule by mouth twice daily Macrobid 100 mg Cap 100 mg = 1 cap(s), Oral, BID, X 7 day(s), # 14 cap(s), Refills(s) 0, [id number], cm, 10/20/21 7:35:00 EDT, Height/Length Dosing, 63, kg, 10/20/21 7:35:00 EDT, Weight Dosing Start Date: 10/20/21 Stop Date: 10/27/21 Status: Ordered Start: 09-06-2021 End: 09-20-2021 take 1 capsule by mouth twice daily Macrobid 100 mg Cap 100 mg = 1 cap(s), Oral, BID, X 14 day(s), # 28 cap(s), Refills(s) 0, Pharmacy: [facility]/pharmacy #[id number], 162, cm, 09/06/21 11:53:00 EDT, Height/Length Dosing, 63.8, kg, 09/06/21 11:53:00 EDT, Weight Dosing Start Date: 09/06/21 Stop Date: 09/20/21 Status: Ordered nitrofurantoin macrocrystals-monohydrate 100 mg Cap (1 source) Start: 10-27-2021 End: 11-01-2021 take 1 capsule by mouth twice daily nitrofurantoin macrocrystals-monohydrate 100 mg Cap 100 mg = 1 cap(s), Oral, BID, X 5 day(s), # 10 cap(s), Refills(s) 0, Pharmacy: [facility]/pharmacy #[id number], 165, cm, 10/27/21 9:52:00 EDT, Height/Length Dosing, 63, kg, 10/27/21 9:52:00 EDT, Weight Dosing Start Date: 10/27/21 Stop Date: 11/01/21 Status: Ordered nitrofurantoin, macrocrystals 25 mg / nitrofurantoin, monohydrate 75 mg oral capsule (19 sources) Nitrofuran Antibacterial Start: 09-12-2023 End: 01-09-2024 take 1 capsule by mouth twice daily nitrofurantoin macrocrystals-monohydrate 100 mg Cap 100 mg = 1 cap(s), Oral, BID, # 10 cap(s), Refills(s) 0 Start Date: 09/12/23 Status: Ordered Start: 01-29-2023 End: 02-03-2023 take 1 capsule by mouth twice daily nitrofurantoin monohydrate and macrocrystal (MACROBID) 100 mg capsule Take 1 capsule by mouth twice daily for 5 days. 10 capsule 0 01/29/2023 02/03/2023 Active Start: 02-07-2022 End: 02-07-2022 nitrofurantoin monohydrate a nd macrocrystal 100 mg cap(s) (MACROBID) Start: 01-15-2022 End: 01-20-2022 take 1 capsule by mouth twice daily Macrobid 100 mg Cap 100 mg = 1 cap(s), Oral, BID, X 5 day(s), # 10 cap(s), Refills(s) 0, Pharmacy: [facility]/pharmacy #[id number], 154.9, cm, 01/15/22 15:56:00 EDT, Height/Length Dosing, 63.9, kg, 01/15/22 15:56:00 EDT, Weight Dosing Start Date: 01/15/22 Stop Date: 01/20/22 Status: Ordered Start: 12-04-2021 End: 12-11-2021 take 1 capsule by mouth once daily nitrofurantoin monohydrate and macrocrystal (MACROBID) 100 mg capsule Take 1 capsule by mouth once daily for 7 days. 7 capsule 0 12/04/2021 12/11/2021 Comment on above: Take 1 capsule by mo ut once daily for 7 days. Take 1 capsule by mo ut twice daily for 5 days. omeprazole 40 mg delayed release oral capsule (13 sources) Proton Pump Inhibitor Start: 2 take 1 capsule by mouth once daily omeprazole 40 mg Cap-DR 40 mg = 1 cap(s), Oral, Daily, # 30 cap(s), Refills(s) 2, Pharmacy: [facility]/pharmacy #[id number], 162, cm, 08/06/21 8:29:00 EDT, Height/Length Dosing, 63.5, kg, 08/06/21 8:29:00 EDT, Weight Dosing Start Date: 08/28/21 Status: Ordered omeprazole 40 mg Cap-DR (20 sources) Start: 2 take 1 capsule by mouth once daily omeprazole 40 mg Cap-DR 40 mg = 1 cap(s), Oral, Daily, # 30 cap(s), Refills(s) 2, Pharmacy: [facility]/pharmacy #[id number], 162, cm, 08/06/21 8:29:00 EDT, Height/Length Dosing, 63.5, kg, 08/06/21 8:29:00 EDT, Weight Dosing Start Date: 08/28/21 Status: Ordered ondansetron 4 mg disintegrating oral tablet (20 sources) Serotonin-3 Receptor Antagonist Start: 3 take 1 tablet by mouth every six hours as needed for nausea ondansetron 4 mg Dis Tab 4 mg = 1 tab(s), Oral, q6hr, PRN Nausea/Vomiting, # 10 tab(s), Refills(s) 0, Pharmacy: [facility]/pharmacy #[id number], 155, cm, 12/29/22 12:46:00 EDT, Height/Length Dosing, 68, kg, 12/29/22 12:46:00 EDT, Weight Dosing Start Date: 12/29/22 Status: Ordered Start: 08-02-2021 take 4 mg by mouth e very eight hours Ondansetron Hcl Active 4 MG PO Every 8 hours August 07, 2021 12:00am pantoprazole 40 mg delayed release oral tablet (20 sources) Proton Pump Inhibitor Start: 05-24-2022 take 1 tablet by mouth once daily Pantoprazole [address] Tab TAKE 1 TABLET BY MOUTH EVERY DAY Start Date: 05/24/22 Status: Ordered Start: 08-08-2021 End: 05-25-2022 take 40 mg by mouth twice daily Pantoprazole Discontin ued 40 MG PO Twice daily 60 August 08, 2021 12:50am May 25, 2022 9:42pm Start: 07-09-2021 take 1 tablet by cachorro th once daily Pantoprazole [address] Tab 40 mg = 1 tab(s), Oral, Daily, # 90 tab(s), Refills(s) 1, Pharmacy: [facility]/pharmacy #[id number], 157, cm, 07/08/21 1:27:00 EST, Height/Length Dosing, 64, kg, 07/08/21 1:27:00 EST, Weight Dosing Start Date: 07/09/21 Status: Ordered Start: 12-28-2014 End: 08-08-2021 take 40 mg by mouth once daily Pantoprazole Discontinu ed 40 MG PO Daily August 07, 2021 12:00am August 08, 2021 12:50am Comment on above: Take 40 mg by mouth once daily. phenazopyridine hydrochloride 200 mg oral tablet (20 sources) Start: 02-13-2022 End: 02-16-2022 take 1 tablet by mouth three times daily Pyridium 200 mg Tab 200 mg = 1 tab(s), Oral, TID, X 3 day(s), # 9 tab(s), Refills(s) 0, Pharmacy: [facility]/pharmacy #[id number], 154.9, cm, 02/13/22 11:50:00 EDT, Height/Length Dosing, 57.6, kg, 02/13/22 11:50:00 EDT, Weight Dosing Start Date: 02/13/22 Stop Date: 02/16/22 Status: Ordered Start: 10-20-2021 take 1 tablet by cachorro th three times daily Pyridium 200 mg Tab 200 mg = 1 tab(s), Oral, TID, Take one tab by mouth three times a day for three days, # 9 tab(s), Refills(s) 0, Pharmacy: [facility]/pharmacy #[id number], 157, cm, 11/07/21 8:56:00 EDT, Height/Length Dosing, 59.9, kg, 11/07/21 8:56:00 EDT, Weight Dosing Start Date: 11/07/21 Status: Ordered Start: 09-08-2021 End: 09-10-2021 take 1 tablet by mouth three times daily Pyridium 200 mg Tab 200 mg = 1 tab(s), Oral, TID, X 2 day(s), # 6 tab(s), Refills(s) 0, Pharmacy: [facility]/pharmacy #[id number], 158, cm, 09/08/21 8:41:00 EDT, Height/Length Dosing, 63, kg, 09/08/21 8:41:00 EDT, Weight Dosing Start Date: 09/08/21 Stop Date: 09/10/21 Status: Ordered Start: 07-22-2021 End: 08-07-2021 take 1 tablet by mouth every eight hours Phenazopyridine (Pyridium) 200 mg tablet Discontinued 200 MG PO Q8H 9 July 22, 2021 1:00am August 07, 2021 11:22pm Plenvu oral powder for reconstitution (10 sources) Start: 08-07-2021 take 1 dose by mouth once Plenvu oral powder for reconstitution See Instructions, 1 EA, Refill(s) 0, samples given to patient (Rx), Per physician's instructions. Prior to colonoscopy. Ordered as instructed by Dr. Woodward. Start Date: 08/07/21 Status: Ordered polyethylene glycol 3350 04760 mg powder for oral solution (20 sources) Osmotic Laxative Start: 12-16-2021 take 17 g by mouth once daily Miralax 17 gram packet 17 gm, Oral, Daily, Refills(s) 0 Start Date: 12/16/21 Status: Ordered pregabalin 150 mg oral capsule (20 sources) Start: 02-20-2015 take 1 capsule by mouth twice daily LYRICA 150 mg capsule Take 150 mg by mouth 2 (two) times a day 0 02/20/2015 Active Lyrica 100 MG 1 capsule Orally Three timea day Active Comment on above: Take 150 mg by mouth twice daily. promethazine hydrochloride 25 mg oral tablet (20 sources) Phenothiazine Start: 04-01-20 15 take 1 tablet by mouth every eight hours promethazine (PHENERGAN) 25 MG tablet Take 25 mg by mouth every 8 (eight) hours 0 04/01/2015 Active Comment on above: Take 25 mg by mouth every 8 hours as needed. QUEtiapine 50 mg oral tablet (2 sources) Atypical Antipsychotic Start: 09-01-19 24 take 50 mg by mouth once daily at bedtime Quetiapine Active 50 MG PO Daily at bedtime September 01, 2023 12:00am risperiDONE 2 mg oral tablet (6 sources) Atypical Antipsychotic Start: 06-28-19 23 take 1 tablet by mouth twice daily risperiDONE (RISPERDAL) 2 MG tablet Take 1 (one) tablet (2 mg total) by mouth 2 (two) times a day . 60 tablet 5 06/28/2022 Active Start: 06-11-2022 End: 08-22-2023 take 2.5 mg by mouth twice daily Risperidone Discontinued 2.5 MG PO Twice daily 0 June 11, 2022 1:00am August 22, 2023 1:36pm Sodium Chloride (20 sources) Start: 09-08-2023 sodium chlorid e 2 gram, Oral, TID, Refill(s) 0 Start Date: 09/08/23 Status: Ordered Start: 05-25-2022 take 2000 mg by mout h three times daily Sodium Chloride Active 2000 MG PO Three times daily May 25, 2022 1:00am Start: 05-25-2022 take 1000 mg by mout h three times daily Sodium Chloride Active 1000 MG PO Three times daily May 25, 2022 12:00am Start: 05-24-2022 take 1 tablet by cachorro th three times daily, then take 1 tablet by mouth three times daily Sodium Chloride 1 g oral tablet 1 tab, Oral, TID, TAKE 1 TABLET BY MOUTH THREE TIMES A DAY Start Date: 05/24/22 Status: Ordered Start: 04-19-2022 take 1 tablet by cachorro th once daily sodium chloride 1 g Tab 1 gm = 1 tab(s), Oral, Daily, Refills(s) 0 Start Date: 04/19/22 Status: Ordered Start: 09-06-2021 take 1 tablet by cachorro th three times daily Sodium Chloride 1 g oral tablet 1 tab, Oral, TID, # 90 tab(s), Refills(s) 5, Pharmacy: [facility]/pharmacy #[id number], 162, cm, 09/06/21 11:53:00 EDT, Height/Length Dosing, 63.8, kg, 09/06/21 11:53:00 EDT, Weight Dosing Start Date: 09/06/21 Status: Ordered Start: 09-06-2021 take 1 tablet by cachorro th three times daily Sodium Chloride 1 g oral tablet 1 tab, Oral, TID, # 90 tab(s), Refills(s) 5, [id number], cm, 09/06/21 11:53:00 EDT, Height/Length Dosing, 63.8, kg, 09/06/21 11:53:00 EDT, Weight Dosing Start Date: 09/06/21 Status: Ordered Start: 08-07-2021 End: 05-25-2022 take 1 g by mouth three times daily Sodium Chloride Discontinued 1 GM PO Three times daily August 07, 2021 12:00am May 25, 2022 9:42pm Start: 07-09-2021 take 1 tablet by cachorro th three times daily Sodium Chloride 1 g oral tablet 1 tab, Oral, TID, # 90 tab(s), Refills(s) 5, [id number] 157, cm, 07/08/21 1:27:00 EST, Height/Length Dosing, 64, kg, 07/08/21 1:27:00 EST, Weight Dosing Start Date: 07/09/21 Status: Ordered Start: 10-29-2019 take 1 tablet by cachorro th once daily sodium chloride 1 gram tab Take 1 g by mouth once daily. 0 10/29/2019 Active Comment on above: Take 1 g by mouth on ce daily. Straight Catheters & Supplies (20 sources) Start: 04-25-2022 Straight Catheters & Supplies Straight Catheters & Supplies, See Instructions, 300 EA, 5, Use daily, as directed., Supply Start Date: 04/25/22 Status: Ordered Start: 03-28-2022 Straight Jacki ters & Supplies Straight Catheters & Supplies, See Instructions, 300 EA, 5, Use daily, as directed., Supply Start Date: 03/28/22 Status: Ordered sulfamethoxazole 800 mg / trimethoprim 160 mg oral tablet (11 sources) Dihydrofolate Reductase Inhibitor Antibacterial, Sulfonamide Antimicrobial Start: 11-30-2021 End: 12-07-2021 Bactrim DS 800 mg-160 mg Tab 1 tab(s), Oral, BID for 7 day(s), 14 tab(s), Refill(s) 0, [facility]/pharmacy #[id number], 157, cm, 11/30/21 14:30:00 EDT, Height/Length Dosing, 60, kg, 11/30/21 14:30:00 EDT, Weight Dosing Start Date: 11/30/21 Stop Date: 12/07/21 Status: Ordered Start: 11-23-2021 End: 11-26-2021 Bactrim DS 800 mg-160 mg Tab 1 tab(s), Oral, BID for 3 day(s), 6 tab(s), Refill(s) 0, [id number], 157, cm, 11/23/21 13:09:00 EDT, Height/Length Dosing, 60, kg, 11/23/21 13:09:00 EDT, Weight Dosing Start Date: 11/23/21 Stop Date: 11/26/21 Status: Ordered Start: 11-21-2021 End: 11-24-2021 Bactrim D.S. 800 mg-160 mg T ab 1 tab(s), Oral, q12hr for 3 day(s), 6 tab(s), Refill(s) 0, [id number], 157, cm, 11/17/21 17:26:00 EDT, Height/Length Dosing, 60, kg, 11/17/21 17:26:00 EDT, Weight Dosing Start Date: 11/21/21 Stop Date: 11/24/21 Status: Ordered Start: 09-13-2021 End: 09-20-2021 Bactrim DS 800 mg-160 mg Tab 1 tab(s), Oral, BID for 7 day(s), 14 tab(s), Refill(s) 0, [id number], 158, cm, 09/13/21 10:56:00 EDT, Height/Length Dosing, 63, kg, 09/08/21 8:41:00 EDT, Weight Dosing Start Date: 09/13/21 Stop Date: 09/20/21 Status: Ordered Therapeutic Multiple Vitamins with Minerals Tab (20 sources) Start: 02-05-2022 take 1 tablet by mouth once daily Therapeutic Multiple Vitamins with Minerals Tab Oral, Daily, Refill(s) 0 Start Date: 02/05/22 Status: Ordered traZODone hydrochloride 50 mg oral tablet (20 sources) Serotonin Reuptake Inhibitor Start: 08-27-2023 take 150 mg by mouth once daily at bedtime Trazodone Active 150 MG PO Daily at bedtime August 27, 2023 12:00am Start: 06-11-2022 End: 08-27-2023 take 50 mg by mouth once daily at bedtime Trazodone Discontinued 50 MG PO Daily at bedtime 0 June 11, 2022 1:00am August 27, 2023 2:11pm Start: 10-05-2012 End: 06-28-2022 take 1 tablet by mouth once daily at bedtime traZODONE 150 mg Tab 150 mg = 1 tab(s), Oral, Once a day (at bedtime), Do not give with clonazepam, # 90 tab(s), Refills(s) 3, 155, cm, 01/13/20 15:33:00 EDT, Height/Length Dosing, 68.3, kg, 01/13/20 15:33:00 EDT, Weight Dosing Start Date: 02/16/20 Status: Ordered TRAZODONE HCL (T RAZODONE ORAL) Take by mouth daily at bedtime. 0 Active Comment on above: Take by mouth daily at bedtime. Zofran ODT 4 mg Tab-Dis (20 sources) Start: 03-27-2022 take 1 tablet by mouth three times daily as needed for nausea Zofran ODT 4 mg Tab-Dis 4 mg = 1 tab(s), Oral, TID, PRN Nausea, # 90 tab(s), Refills(s) 1, Pharmacy: [facility]/pharmacy #[id number], 154, cm, 03/04/22 13:21:00 EDT, Height/Length Dosing, 57, kg, 03/04/22 13:21:00 EDT, Weight Dosing Start Date: 03/27/22 Status: Ordered Start: 01-17-2022 take 1 tablet by cachorro th three times daily as needed for nausea Zofran ODT 4 mg Tab-Dis 4 mg = 1 tab(s), Oral, TID, PRN Nausea, # 90 tab(s), Refills(s) 1, Pharmacy: [facility]/pharmacy #[id number], 155, cm, 01/16/22 8:27:00 EDT, Height/Length Dosing, 64, kg, 01/16/22 8:27:00 EDT, Weight Dosing Start Date: 01/17/22 Status: Ordered Start: 10-31-2021 take 1 tablet by cachorro th three times daily as needed for nausea Zofran ODT 4 mg Tab-Dis 4 mg = 1 tab(s), Oral, TID, PRN Nausea, # 90 tab(s), Refills(s) 1, Pharmacy: [facility]/pharmacy #[id number], 157, cm, 10/31/21 11:42:00 EDT, Height/Length Dosing, 62.6, kg, 10/31/21 11:42:00 EDT, Weight Dosing Start Date: 10/31/21 Status: Ordered Start: 10-27-2021 take 1 tablet by cachorro th every eight hours as needed for nausea Zofran ODT 4 mg Tab-Dis 4 mg = 1 tab(s), Oral, q8hr, PRN Nausea/Vomiting, # 12 tab(s), Refills(s) 0, Pharmacy: [facility]/pharmacy #[id number], 165, cm, 10/27/21 9:52:00 EDT, Height/Length Dosing, 63, kg, 10/27/21 9:52:00 EDT, Weight Dosing Start Date: 10/27/21 Status: Ordered Start: 09-18-2021 take 1 tablet by cachorro three times daily as needed for nausea Zofran ODT 4 mg Tab-Dis 4 mg = 1 tab(s), Oral, TID, PRN Nausea, # 90 tab(s), Refills(s) 1, Pharmacy: [facility]/pharmacy #[id number], 158, cm, 09/17/21 9:33:00 EDT, Height/Length Dosing, 63, kg, 09/17/21 9:33:00 EDT, Weight Dosing Start Date: 09/18/21 Status: Ordered Start: 08-04-2021 End: 08-07-2021 take 1 tablet by mouth three times daily as needed for nausea Zofran ODT 4 mg Tab-Dis 4 mg = 1 tab(s), Oral, TID, PRN Nausea, # 10 tab(s), Refills(s) 0, Pharmacy: [facility]/pharmacy #[id number], 162, cm, 08/04/21 11:45:00 EST, Height/Length Dosing, 70, kg, 08/04/21 11:45:00 EST, Weight Dosing Start Date: 08/04/21 Stop Date: 08/07/21 Status: Ordered Completed/Discontinued Medications Medication Drug Class(es) Dates Sig (Normalized) Sig (Original) acetaminophen 325 mg / HYDROcodone bitartrate 5 mg oral tablet (6 sources) Opioid Agonist Start: 08-08-2021 End: 05-25-2022 take 1 tablet by mouth every six hours Hydrocodone-Acetam inophen Discontinued 1 TAB PO Q6H 10 August 08, 2021 May 25, 2022 9:42pm benztropine mesylate 1 mg oral tablet (3 sources) Anticholinergic, Antihistamine Start: 08-27-2023 End: 09-01-2023 take 1 mg by mouth twice daily Benztropine Discontinued 1 MG PO Twice daily August 27, 2023 12:00am September 01, 2023 12:12pm Start: 06-28-2022 End: 06-28-2023 take 1 tablet by mouth twice daily benztropine (COGENTIN) 1 MG tablet Take 1 (one) tablet (1 mg total) by mouth 2 (two) times a day . 60 tablet 11 06/28/2022 06/28/2023 Active cimetidine 300 mg oral tablet (20 sources) Histamine-2 Receptor Antagonist Start: 08-07-2021 End: 06-11-2022 take 600 mg by mouth three times daily Cimetidine Discontinued 600 MG PO Three times daily August 07, 2021 12:00am June 11, 2022 11:09am Start: 12-22-2019 take 2 tablets by mo [facility] three times daily cimetidine 300 mg oral tablet 600 mg = 2 tab(s), Oral, TID, # 180 tab(s), Refills(s) 5, Pharmacy: [facility]/pharmacy #[id number], 154, cm, 02/17/22 16:05:00 EDT, Height/Length Dosing, 57, kg, 02/17/22 16:05:00 EDT, Weight Dosing Start Date: 02/22/22 Status: Ordered Comment on above: Take 600 mg by mouth three times daily. citalopram 20 mg oral tablet (20 sources) Serotonin Reuptake Inhibitor Start: 02-16-2020 End: 06-28-2022 take 20 mg by mouth once daily Citalopram Discontinued 20 MG PO Daily August 07, 2021 12:00am June 11, 2022 11:09am Start: 11-09-2012 End: 05-01-2020 take 1 tablet by mouth once daily citalopram (CELEXA) 40 MG tablet Take 40 mg by mouth daily 0 03/22/2015 05/01/2020 Discontinued (Reorder) Comment on above: Take 40 mg by mouth once daily. clonazePAM 1 mg oral tablet (20 sources) Benzodiazepine Start: take 1 tablet by mouth three times daily as needed for anxiety clonazepam 1 mg Tab 1 mg = 1 tab(s), Oral, TID, TAKE 1 TABLET BY MOUTH THREE TIMES A DAY NEEDED FOR ANXIETY, # 12 tab(s), Refills(s) 0 Start Date: 09/12/23 Status: Ordered Start: 08-27-2023 take 1 mg by mouth t hree times daily Clonazepam Active 1 MG PO Three times daily August 27, 2023 12:00am Start: 06-11-2022 End: 08-27-2023 take 0.5 mg by mouth three times daily Clonazepam Discontinued 0.5 MG PO Three times daily June 11, 2022 1:00am August 27, 2023 2:11pm Start: 03-27-2015 End: 06-28-2022 take 1 tablet by mouth three times daily Clonazepam (Klonopin) 1 mg Tablet Discontinued 1 MG PO Three times daily November 11, 2019 12:00am June 11, 2022 11:09am take 1 mg by mouth twice daily C LONAZEPAM (KLONOPIN ORAL) Take 1 mg by mouth twice daily. 0 Active Comment on above: Take 1 mg by mouth t wice daily. cyanocobalamin 1000 mcg/mL Inj (20 sources) Start: 07-09-19 inject 1 mL by intramuscular injection every month cyanocobalamin 1000 mcg/mL Inj 1,000 microgram = 1 mL, IntraMuscular, qMonth, # 10 mL, Refills(s) 1, Pharmacy: [facility]/pharmacy #[id number], 157, cm, 07/08/21 1:27:00 EST, Height/Length Dosing, 64, kg, 07/08/21 1:27:00 EST, Weight Dosing Start Date: 07/09/21 Status: Ordered Start: 07-09-2021 inject 1 mL by intra muscular injection every month cyanocobalamin 1000 mcg/mL Inj 1,000 microgram = 1 mL, IntraMuscular, qMonth, # 10 mL, Refills(s) 1, Pharmacy: [facility]/pharmacy #[id number], 157, cm, 07/08/21 1:27:00 EST, Height/Length Dosing, 64, kg, 07/08/21 1:27:00 EST, Weight Dosing Start Date: 07/09/21 Status: Ordered docusate sodium 50 mg / sennosides, skilled nursing 8.6 mg oral tablet (20 sources) Start: 08-08-2021 senna-docusate (SENNA-S) 8.6-50 mg per tablet Sennosides-Docusate Sodium (Senna Plus) 8.6-50 mg tablet Active 2 TAB PO Daily at bedtime August 08, 2021 12:51am 0 08/08/2021 Active Start: 08-08-2021 End: 08-22-2023 take 2 tablets by mouth once daily at bedtime Sennosides-Docusate Sodium (Senna Plus) 8.6-50 mg tablet Discontinued 2 TAB PO Daily at bedtime August 08, 2021 12:00am August 22, 2023 1:36pm Comment on above: Sennosides-Docusate Sodium (Senna Plus) 8.6-50 mg tablet Active 2 TAB PO Daily at bedtime August 08, 2021 12:51am doxycycline hyclate 100 mg oral capsule (2 sources) Tetracycline-class Drug Start: End: take 100 mg by mouth twice daily Doxycycline Hyclate Discontinued 100 MG PO Twice daily August 27, 2023 12:00am September 01, 2023 12:12pm DULoxetine 60 mg delayed release oral capsule (20 sources) Serotonin and Norepinephrine Reuptake Inhibitor Start: End: take 1 capsule by mouth once daily DULoxetine (CYMBALTA) 60 MG capsule Take 60 mg by mouth daily 0 03/18/2015 05/01/2020 Discontinued Comment on above: Take 60 mg by mouth once daily. Ensure Vanilla (20 sources) Start: 022 Ensure Vanilla See Instructions, 60 EA, Refill(s) 5, Drink 1 bottle (8 fl. oz.) BID Start Date: 03/06/22 Status: Ordered lisinopril 20 mg oral tablet (20 sources) Angiotensin Converting Enzyme Inhibitor Start: 015 End: 023 take 20 mg by mouth once daily Lisinopril Discontinued 20 MG PO Daily August 07, 2021 12:00am June 11, 2022 11:09am take 1 tablet by [facility] every twenty-four hours Lisinopril 10 MG 1 tablet Orally Once a day for 30 day(s) Active Comment on above: Take 20 mg by mouth once daily. Morphine (19 sources) Opioid Agonist morphine sulfate (MORPHINE INTRAVENOUS) Inject intravenously. 0 Active Comment on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 causes (1 source) Other specified injuries of head, initial encounter; Translations: [OTH SPEC INJURIES HEAD INITIAL ENC] Onset: 12-05-2021 Episodic Other nervous system disorders (1 source) Chronic pain syndrome; Translations: [Chronic pain syndrome] Onset: 04-03-2015 04-03-2015 Episodic Other nutritional; endocrine; and metabolic disorders (20 sources) Obesity Resolved: 10-24-2014 10-21-2018 Chronic Other upper respiratory infections (20 sources) Laryngitis Resolved: 10-21-2018 12-24-2018 Episodic Residual codes; unclassified (17 sources) Altered mental status; Translations: [Altered mental status, unspecified] Onset: 04-03-2015 Resolved: 05-01-2020 05-01-2020 Episodic Residual codes; unclassified (4 sources) Procedure and treatment not carried out due to patient leaving prior to being seen by health care provider; Translations: [PROC AND TX NOT CARRIED OUT PT LEAVE] Onset: 05-03-2022 Episodic Residual codes; unclassified (2 sources) Altered mental status, unspecified; Translations: [Altered mental status, unspecified] Onset: 07-05-2023 Episodic Skull and face fractures (20 sources) Closed fracture of base of skull with concussion Resolved: 11-07-2017 10-21-2018 Episodic Superficial injury; contusion (2 sources) Superficial injury of head; Translations: [Contusion of other part of head, initial encounter] Onset: 12-05-2021 Episodic Unclassified (20 sources) Agent [place] (substance) Resolved: 03-01-2010 10-21-2018 Unclassified (20 sources) code blue d/t hypokalemia( Confirmed ) 06-21-2011 Unclassified (20 sources) collapsed lung on the right( Confirmed ) 06-21-2011 Unclassified (20 sources) compression fx back( Confirmed ) 06-21-2011 Unclassified (20 sources) multiple broken bones( Confirmed ) 06-21-2011 Unclassified (20 sources) code blue d/t hypokalemia 06-21-2011 Unclassified (20 sources) collapsed lung on the right 06-21-2011 Unclassified (20 sources) compression fx back 06-21-2011 Unclassified (20 sources) multiple broken bones 06-21-2011 Unclassified (1 source) Low back pain, unspecified back pain laterality, unspecified chronicity, unspecified whether sciatica present M54.50 Results Test Name Value Interpretation Reference Range Facility ED Clinical Summaryon 2023 ED Clinical Summary ED Clinical Summary [place] [id number] ED Clinical Summary Person Information Name: MAEGAN DYE/[facility] Age: 74 Years : 1950 Sex: Female Language: [place]ese PCP: AZUL BATEMAN CNP Marital Status: Phone: [phone] Visit Id: Visit Reason: Post surgical problem; Arm pain-swelling; LT WRIST CAST GOT WET Speciality: Acuity: 4 Enc Type: Emergency Med Service: Emergency Arrival: 01/28/2024 18:06:56 Discharge: 01/28/2024 18:39:30 LOS: 000 00:33 Checkin: 01/28/2024 18:06:56 Checkout: 01/28/2024 18:39:30 Dispo Type: Left Without Being Seen EVENTS: Event Name Event Status Request Date/Time Start Date/Time Complete Date/Time Arrive Complete 01/28/2024 18:06:56 01/28/2024 18:06:56 01/28/2024 18:06:56 Document Home Meds Request 01/28/2024 18:06:56 Triage Complete 01/28/2024 18:06:56 01/28/2024 18:29:33 01/28/2024 18:29:33 Registration Complete 01/28/2024 18:14:14 01/28/2024 18:14:14 01/28/2024 18:14:14 Reg Complete Request 01/28/2024 18:14:14 Reg Bed Request Complete 01/28/2024 18:14:14 01/28/2024 18:14:14 01/28/2024 18:14:14 Isolation Screening Request 01/28/2024 18:29:33 Discharge Complete 01/28/2024 18:39:42 01/28/2024 18:39:42 01/28/2024 18:39:42 Transfer Complete 01/28/2024 18:39:42 01/28/2024 18:39:42 01/28/2024 18:39:42 ADDRESS: [address] [place] [address] [address] [facility] [id number] PHYS DOC NOTES: MEDICAL INFORMATION: Prescriptions Given: Medications to Continue with No Changes Other Medications amlodipine (amLODIPine 5 mg Tab) 1 Tablets By Mouth every day. TAKE 1 TABLET BY MOUTH EVERY DAY. celecoxib (Celebrex) 200 Milligram By Mouth every day. celecoxib (celecoxib 200 mg Cap) TAKE 1 CAPSULE BY MOUTH EVERY DAY. clonazepam (clonazepam 1 mg Tab) 1 Tablets By Mouth 3 times a day. TAKE 1 TABLET BY MOUTH THREE TIMES A DAY NEEDED FOR ANXIETY. Refills: 0. docusate (Colace 100 mg Cap) 1 Capsules By Mouth 2 times a day. Hold for diarrhea. Refills: 0. Ensure (Ensure Vanilla) Drink 1 bottle (8 fl. oz.) BID. Refills: 5. fluticasone nasal (fluticasone 0.05 mg/inh Nasal Britt) 2 Sprays Nasal Inhalation every day. each nostril. Refills: 5. Misc Prescription (Straight Catheters & Supplies) Use daily, as directed.. Refills: 5. Misc Prescription (walking boot) right foot knee high walking Size small boot dx m21.969, m14.679 Fax to [facility]. Refills: 0. multivitamin with minerals (Therapeutic Multiple Vitamins with Minerals Tab) By Mouth every day. mupirocin topical (mupirocin Top 2% Oint) 1 Application Topical 3 times a day. Refills: 0. nitrofurantoin (nitrofurantoin macrocrystals-monohydrate 100 mg Cap) 1 Capsules By Mouth 2 times a day. Refills: 0. ondansetron (ondansetron 4 mg Dis Tab) 1 Tablets By Mouth every 6 hours as needed Nausea/Vomiting. Refills: 0. ondansetron (Zofran ODT 4 mg Tab-Dis) 1 Tablets By Mouth 3 times a day as needed Nausea. Refills: 1. pantoprazole (Pantoprazole [address] Tab) TAKE 1 TABLET BY MOUTH EVERY DAY. polyethylene glycol 3350 (Miralax 17 gram packet) 17 Gram By Mouth every day. potassium chloride (potassium chloride 10 mEq Cap-ER) 1 Capsules By Mouth every other day. Refills: 2. senna (Senokot 8.6 mg Tab) 2 Tablets By Mouth once a day (at bedtime) as needed for constipation. Refills: 1. sodium chloride 2 gram By Mouth 3 times a day. trazodone (traZODONE 150 mg Tab) 1 Tablets By Mouth once a day (at bedtime). Do not give with clonazepam. Refills: 3. PATIENT EDUCATION INFORMATION: Instructions: Follow up: DIAGNOSIS: Normal [facility] ED Patient Education Noteon 01-28-2024 ED Patient Education Note ED Patient Education Note Normal [facility] ED Patient Summaryon 024 ED Patient Summary ED Patient Summary [place] [id number] Patient Discharge Instructions Person Information Name: MAEGAN DYE Age: 74 Years Arrival Date: 01/28/2024 18:06:56 Discharge Diagnosis: Primary Care Physician: AZUL BATEMAN CNP Provider Information Primary Provider: Advanced Passenger Coach Driver:None The exam and treatment you received in the Emergency Department were for an urgent problem and are not intended as complete care. It is important that you follow up with a doctor, nurse practitioner, or physician?s engineer first assistant for ongoing care. If your symptoms become worse or you do not improve as expected and you are unable to reach your usual health care provider, you should return to the Emergency Department. We are available 24 hours a day. MAEGAN DYE has been given the following list of patient education materials, prescriptions and follow-up instructions: Follow-up Instructions: In the event that this physician does not participate in your insurance network, please consult with your insurance company to find a nearby participating provider. Patient Education Materials: A MESSAGE TO ALL PATIENTS REGARDING OPIOIDS PRESCRIPTION OPIOIDS: WHAT YOU NEED TO KNOW Prescription opioids can be used to help relieve iagzjhca-ec-igjpto pain and are often prescribed following a surgery or injury, or for certain health conditions. These medications can be an important part of the treatment but also come with serious risks. It is important to work with your healthcare provider to make sure you are getting the safest, most effective care. WHAT ARE THE RISKS AND SIDE EFFECTS OF OPIOID USE? Prescription opioids carry serious risks of addiction and overdose, especially with prolonged use. An opioid overdose, often marked by slowed breathing, can cause sudden . The use of prescription opioids can have a number of side effects as well, even when taken as directed: ? Tolerance?meaning you might need to take more of the medication for the same pain relief ? Physical dependence?meaning you have symptoms of withdrawal when a medication is stopped ? Increased sensitivity to pain ? Constipation ? Nausea, vomiting, and dry mouth ? Sleepiness and dizziness ? Confusion ? Depression ? Low levels of testosterone that can result in lower sex drive, energy, and strength ? Itching and sweating RISKS ARE GREATER WITH: ? History of drug misuse, substance use disorder, or overdose ? Mental health conditions (such as depression or anxiety) ? Sleep apnea ? Older age (65 years and older) ? Avoid alcohol while taking prescription opioids. Also, unless specifically advised by your health care provider, medications to avoid include: ? Benzodiazepines (such as Xanax or Valium) ? Muscle relaxants (such as Soma or Flexeril) ? Hypnotics (such as Ambien or Lunesta) ? Other prescription opioids KNOW YOUR OPTIONS Talk to your health care provider about ways to manage your pain that don?t involve prescription opioids. Some of these options may actually work better and have fewer risks and side effects. Options may include: ? Pain relievers such as acetaminophen, ibuprofen, and naproxen ? Some medication that are also used for depression or seizures ? Physical therapy and exercise ? Cognitive behavioral therapy, a psychological, goal-directed approach, in which patients learn how to modify physical, behavioral, and emotional triggers of pain and stress. IF YOU ARE PRESCRIBED OPIOIDS FOR PAIN: ? Never take opioids in greater amounts or more often than prescribed. ? Follow up with your primary health care provider. o Work together to create a plan on how to manage your pain. o Talk about ways to help manage your pain that don?t involve prescription opioids. o Talk about any and all concerns and side effects. ? Help prevent misuse and abuse o Never sell or share prescription opioids. o Never use another person?s prescription opioids. ? Store prescription opioids in a secure place and out of reach of others (this may include visitors, children, friends, and family). ? Safely dispose of unused prescription opioids: Find your community drug take-back program or your pharmacy mail-back program, or flush them down the toilet, following guidance from the Food and Drug Administration (www.fda.gov/Drugs/Resourc esForYou). ? Visit www.cdc.gov/drugoverdose to learn about the risks of opioids abuse and overdose. ? If you believe you may be struggling with addiction, tell your health childcare center director and ask for guidance or call [facility]?S National Helpline at 8-200-760-UWHX. t Source: US Department of Health and Human Services/Center for Disease Control & Prevention [facility] Medications Given: Medication Dose Route No medications found. Medication Inf (more content not included)... Normal [facility] CBC w/ Auto Diffon 4 Basophils/100 WBC (Bld) 0.2 % Normal 0.0-2.0 [facility] Comment on above: Performed By: #### 2 [id number] #### [facility] [address] [place] [address] Basophils/Leukocytes Auto (Bld) [Pure # fraction] 0.0 E9/L Normal 0.0-0.2 [facility] Comment on above: Performed By: #### 2 [id number] #### [facility] [address] [place] [address] Eosinophils (Bld) [#/Vol] 0.3 E9/L Normal 0.0-0.5 [facility] Comment on above: Performed By: #### 2 [id number] #### [facility] [address] [place] [address] Eosinophils/100 WBC (Bld) 3.9 % Normal 0.0-8.0 [facility] Comment on above: Performed By: #### 2 [id number] #### [facility] [address] [place] [address] Erythrocyte distribution width (RBC) [Ratio] 12.9 % Normal 10.9-14.2 [facility] Comment on above: Performed By: #### 2 [id number] #### [facility] [address] [place] [address] Hematocrit (Bld) [Volume fraction] 35.8 % Normal 34.0-46.0 [facility] Comment on above: Performed By: #### 2 [id number] #### [facility] [address] [place] [address] Hemoglobin (Bld) [Mass/Vol] 12.1 g/dL Normal 12.0-16.0 [facility] Comment on above: Performed By: #### 2 [id number] #### [facility] [address] [place] [address] Lymphocytes (Bld) [#/Vol] 1.5 E9/L Normal 1.0-4.0 [facility] Comment on above: Performed By: #### 2 [id number] #### [facility] [address] [place] [address] Lymphocytes/100 WBC (Bld) 20.9 % Normal 14.0-50.0 [facility] Comment on above: Performed By: #### 2 [id number] #### [facility] [address] [place] [address] MCH (RBC) [Entitic mass] 30.6 pg Normal 27.0-34.0 [facility] Comment on above: Performed By: #### 2 [id number] #### [facility] [address] [place] [address] MCHC (RBC) [Mass/Vol] 33.8 g/dL Normal 31.4-36.0 [facility] Comment on above: Performed By: #### 2 [id number] #### [facility] [address] [place] [address] MCV (RBC) [Entitic vol] 90.4 fL Normal 80.0-100.0 [facility] Comment on above: Performed By: #### 2 [id number] #### [facility] [address] [place] [address] Monocytes (Bld) [#/Vol] 0.7 E9/L Normal 0.2-1.0 [facility] Comment on above: Performed By: #### 2 [id number] #### [facility] [address] [place] [address] Neutrophils (Bld) [#/Vol] 4.8 E9/L Normal 2.0-7.5 [facility] Comment on above: Performed By: #### 2 [id number] #### [facility] [address] [place] [address] Neutrophils/100 WBC (Bld) 64.8 % Normal 36.0-75.0 [facility] Comment on above: Performed By: #### 2 [id number] #### [facility] [address] [place] [address] Platelet 219.0 E9/L Normal 150.0-500. 0 [facility] Comment on above: Performed By: #### 2 [id number] #### [facility] [address] [place] [address] Platelet mean volume (Bld) [Entitic vol] 7.5 fL Normal 6.4-10.8 [facility] Comment on above: Performed By: #### 2 [id number] #### [facility] [address] [place] [address] RBC (Bld) [#/Vol] 4.0 E12/L Low 4.3-5.9 [facility] Comment on above: Performed By: #### 2 [id number] #### [facility] [address] [place] [address] WBC corrected for nucl RBC Auto (Bld) [#/Vol] 7.4 E9/L Normal 4.0-11.0 [facility] Comment on above: Performed By: #### 2 [id number] #### [facility] [address] [place] [address] CHEMISTRYOrdered By: SYSTEM SYSTEM on 01-12-2024 Albumin [Mass/Vol] 3.9 g/dL Normal 3.3 - 5.0 gm/dL [facility] Albumin/Globulin [Mass ratio] 1.4 {ratio} Normal 1.1 - 2.2 [facility] ALP [Catalytic activity/Vol] 88 [iU]/d Normal 21 - 98 Int._Unit/ L [facility] ALT No additional P-5'-P [Catalytic activity/Vol] 8 [iU]/d Normal 6 - 46 Int._Unit/ L [facility] Anion gap [Moles/Vol] 10 mmol/L Normal 6 - 16 mEq/L [facility] AST [Catalytic activity/Vol] 17 [iU]/d Normal 5 - 43 Int._Unit/ L [facility] Bilirubin [Mass/Vol] 0.5 mg/dL Normal 0.0 - 1 .1 mg/dL [facility] Calcium [Mass/Vol] 8.8 mg/dL Low 8.9 - 11. 1 mg/dL [facility] Chloride [Moles/Vol] 102 mmol/L Normal 101 - 1 11 mmol/L [facility] CO2 [Moles/Vol] 29 mmol/L Normal 21 - 31 mmol/L [facility] Creatinine [Mass/Vol] 0.9 mg/dL Normal 0.5 - 1.3 mg/dL [facility] eGFR 66 mL/min/1.73 m2 Normal >=59mL/min /1.73 m2 [facility] Globulin (S) [Mass/Vol] 2.7 g/dL Normal 1.4 - 4.0 gm/dL [facility] Glucose [Mass/Vol] 151 mg/dL Normal 55 - 199 mg/dL [facility] Potassium [Moles/Vol] 3.5 mmol/L Normal 3.5 - 5.3 mmol/L [facility] Protein [Mass/Vol] 6.6 g/dL Normal 6.0 - 7.8 gm/dL [facility] Sodium [Moles/Vol] 137 mmol/L Normal 135 - 145 mmol/L [facility] Urea nitrogen [Mass/Vol] 12 mg/dL Normal 5 - 21 mg/dL [facility] Urea nitrogen/Creatinine [Mass ratio] 13 mg/mg Normal 10 - 20 [facility] CMPon 01-12-2024 Albumin [Mass/Vol] 3.9 g/dL Normal 3.3-5.0 [facility] Comment on above: Performed By: #### 2 [id number] #### [facility] [address] [place] [address] Albumin/Globulin (S) [Mass conc ratio] 1.4 Normal 1.1-2.2 [facility] Comment on above: Performed By: #### 2 [id number] #### [facility] [address] [place] [address] ALP [Catalytic activity/Vol] 88 Int._Unit/L Normal 21-98 [facility] Comment on above: Performed By: #### 2 [id number] #### [facility] [address] [place] [address] ALT No additional P-5'-P [Catalytic activity/Vol] 8 Int._Unit/L Normal 6-46 [facility] Comment on above: Performed By: #### 2 [id number] #### [facility] [address] [place] [address] Anion gap [Moles/Vol] 10 mmol/L Normal 6-16 [facility] Comment on above: Performed By: #### 2 [id number] #### [facility] [address] [place] [address] AST [Catalytic activity/Vol] 17 Int._Unit/L Normal 5-43 [facility] Comment on above: Performed By: #### 2 [id number] #### [facility] [address] [place] [address] Bilirubin [Mass/Vol] 0.5 mg/dL Normal 0.0-1.1 [facility] Comment on above: Performed By: #### 2 [id number] #### [facility] [address] [place] [address] Calcium [Mass/Vol] 8.8 mg/dL Low 8.9-11.1 [facility] Comment on above: Performed By: #### 2 [id number] #### [facility] [address] [place] [address] Chloride [Moles/Vol] 102 mmol/L Normal 101-111 [facility] Comment on above: Performed By: #### 2 [id number] #### [facility] [address] [place] [address] CO2 [Moles/Vol] 29 mmol/L Normal 21-31 [facility] Comment on above: Performed By: #### 2 [id number] #### [facility] [address] [place] [address] Creatinine [Mass/Vol] 0.9 mg/dL Normal 0.5-1.3 [facility] Comment on above: Performed By: #### 2 [id number] #### [facility] [address] [place] [address] Globulin (S) [Mass/Vol] 2.7 g/dL Normal 1.4-4.0 [facility] Comment on above: Performed By: #### 2 [id number] #### [facility] [address] [place] [address] Glucose [Mass/Vol] 151 mg/dL Normal 55-199 [facility] Comment on above: Performed By: #### 2 706005 #### [facility] [address] [place] [address] Potassium [Moles/Vol] 3.5 mmol/L Normal 3.5-5.3 [facility] Comment on above: Performed By: #### 2 789586 #### [facility] [address] [place] [address] Protein [Mass/Vol] 6.6 g/dL Normal 6.0-7.8 [facility] Comment on above: Performed By: #### 2 [id number] #### [facility] [address] [place] [address] Sodium [Moles/Vol] 137 mmol/L Normal 135-145 [facility] Comment on above: Performed By: #### 2 [id number] #### [facility] [address] [place] [address] Urea nitrogen [Mass/Vol] 12 mg/dL Normal 5-21 [facility] Comment on above: Performed By: #### 2 [id number] #### [facility] [address] [place] [address] Urea nitrogen/Creatinine [Mass ratio] 13 No Units Normal 10-20 [facility] Comment on above: Performed By: #### 2 [id number] #### [facility] [address] [place] [address] HEMATOLOGYOrdered By: SYSTEM SYSTEM on 01-12-2024 Basophils/100 WBC (Bld) 0.2 % Normal 0.0 - 2.0 % [facility] Basophils/Leukocytes Auto (Bld) [Pure # fraction] 0.0 E9/L Normal 0.0 - 0.2 E9/L [facility] Eosinophils (Bld) [#/Vol] 0.3 E9/L Normal 0.0 - 0.5 E9/L [facility] Eosinophils/100 WBC (Bld) 3.9 % Normal 0.0 - 8.0 % [facility] Erythrocyte distribution width (RBC) [Ratio] 12.9 % Normal 10.9 - 14.2 % [facility] Hematocrit (Bld) [Volume fraction] 35.8 % Normal 34.0 - 46.0 % [facility] Hemoglobin (Bld) [Mass/Vol] 12.1 g/dL Normal 12.0 - 16.0 gm/dL [facility] Lymphocytes (Bld) [#/Vol] 1.5 E9/L Normal 1.0 - 4.0 E9/L [facility] Lymphocytes/100 WBC (Bld) 20.9 % Normal 14.0 - 50.0 % [facility] MCH (RBC) [Entitic mass] 30.6 pg Normal 27.0 - 34.0 pg [facility] MCHC (RBC) [Mass/Vol] 33.8 g/dL Normal 31.4 - 36.0 gm/dL [facility] MCV (RBC) [Entitic vol] 90.4 fL Normal 80.0 - 100.0 fL [facility] Monocytes (Bld) [#/Vol] 0.7 E9/L Normal 0.2 - 1.0 E9/L [facility] Monocytes/100 WBC (Bld) 10.2 % Normal 4.0 - 14.0 % [facility] Neutrophils (Bld) [#/Vol] 4.8 E9/L Normal 2.0 - 7.5 E9/L [facility] Neutrophils/100 WBC (Bld) 64.8 % Normal 36.0 - 75.0 % [facility] Platelet 219.0 E9/L Normal 150.0 - 500.0 E9/L [facility] Platelet mean volume (Bld) [Entitic vol] 7.5 fL Normal 6.4 - 10.8 fL [facility] RBC (Bld) [#/Vol] 4.0 E12/L Low 4.3 - 5.9 E12/L [facility] WBC corrected for nucl RBC Auto (Bld) [#/Vol] 7.4 E9/L Normal 4.0 - 11.0 E9/L [facility] XR Chest 2 Viewson XR Chest 2 Views Exam Date/Time: 01/12/2024 14:41 EDT Reason for Exam: S52.572A, Z01.818 Report IMPRESSION: NO RADIOGRAPHIC EVIDENCE OF ACTIVE DISEASE IN THE CHEST. CLINICAL INFORMATION: S52.572A, Z01.818 COMPARISON: None available. FINDINGS: 2 views. Mild thoracic scoliosis convexity to left and apex and mid chest, stable. Rib deformities, bilaterally, again identified. Narrowing right glenohumeral joint with narrowing of right acromial humeral interval, unchanged. Cardiopericardial silhouette normal. Pulmonary vasculature normal. Lungs clear and hyperinflated. Ordering Provider: Jose Stroud FINAL REPORT Dictated: 01/12/2024 5:52 pm Chucho Gandara MD Signed (Electronic Signature): 01/12/2024 5:52 pm Signed by: Chucho Gandara MD Transcribed by: GLORIA Technologist: PANKAJ Technical Comments Radiation Dose: Ka,r in mGy = na DAP = na Normal [facility] eGFRon 01-12-2024 eGFR 66 mL/min/1.73 m2 Normal >=59 [facility] Comment on above: Order Comment: Order added by Discern Expert. Performed By: #### 1 [id number] #### [facility] [address] [place] [address] XR Hand 3+ Views Lefton 12-24 XR Hand 3+ Views Left Exam Date/Time: 01/10/2024 21:16 EDT Reason for Exam: Pain, Traumatic Report IMPRESSION: MILDLY IMPACTED INTRA-ARTICULAR DISTAL RADIAL METAPHYSEAL FRACTURE. SMALL AGE INDETERMINATE FRACTURE OF THE INFEROMEDIAL BASE OF THE LEFT THIRD PROXIMAL PHALANX. EXAM: XR Hand 3+ Views Left, XR Wrist 3+ Views Left DATE: 01/10/2024 9:04 PM CLINICAL HISTORY: Pain, Traumatic. COMPARISON: None available. TECHNIQUE: PA, lateral, and oblique radiographs of the left hand, and PA, lateral, oblique, and navicular radiographs of the left wrist were obtained. FINDINGS: A mildly impacted intra-articular distal left radial metaphyseal fracture is present with approximately 30 degrees of dorsal tilt of the distal articular surface. An approximately 6 x 2 mm crescent-shaped calcification medial to the base of the left third proximal phalanx is probably an age-indeterminate fracture. There is no other fracture, dislocation, worrisome bone destruction, radiodense foreign bodies, or other acute findings identified. Degenerative changes predominantly involving the left first MTP joint. Ordering Provider: Mati Taylor FINAL REPORT Dictated: 01/11/2024 12:31 pm Parmjit Fong MD Signed (Electronic Signature): 01/11/2024 12:31 pm Signed by: Parmjit Fong MD Transcribed by: GLORIA Technologist: ANTONIO Technical Comments Radiation Dose: Ka,r in mGy = na DAP = na Normal [facility] XR Wrist 3+ Views Lefton XR Wrist 3+ Views Left Exam Date/Time: 01/10/2024 21:16 EDT Reason for Exam: Pain, Traumatic Report PLEASE SEE XR Hand 3+ Views Left REPORT DATED: 01/10/2024. Ordering Provider: Mati Taylor FINAL REPORT Dictated: 01/11/2024 12:31 pm Parmjit Fong MD Signed (Electronic Signature): 01/11/2024 12:31 pm Signed by: Parmjit Fong MD Transcribed by: GLORIA Technologist: ANTONIO Technical Comments Radiation Dose: Ka,r in mGy = na DAP = na Normal [facility] ED Clinical Summaryon 2023 ED Clinical Summary ED Clinical Summary [place] [id number] ED Clinical Summary Person Information Name: MAEGAN DYE/[facility] Age: 74 Years : 1950 Sex: Female Language: South Sudanese PCP: AZUL BATEMAN CNP Marital Status: Phone: [phone] Visit Id: Visit Reason: Hand pain-swelling; Wrist pain-swelling; FELL / LEF HAND INJURY Speciality: Acuity: 4 Enc Type: Emergency Med Service: Emergency Arrival: 01/10/2024 20:33:08 Discharge: 01/10/2024 22:20:12 LOS: 000 01:47 Checkin: 01/10/2024 20:33:08 Checkout: 01/10/2024 22:20:12 Dispo Type: Home (Routine DC) EVENTS: Event Name Event Status Request Date/Time Start Date/Time Complete Date/Time Arrive Complete 01/10/2024 20:33:08 01/10/2024 20:33:08 01/10/2024 20:33:08 Document Home Meds Request 01/10/2024 20:33:08 Triage Complete 01/10/2024 20:33:08 01/10/2024 20:56:32 01/10/2024 20:56:32 Registration Complete 01/10/2024 20:35:55 01/10/2024 20:35:55 01/10/2024 20:35:55 Reg Complete Request 01/10/2024 20:35:55 Reg Bed Request Complete 01/10/2024 20:35:55 01/10/2024 20:35:55 01/10/2024 20:35:55 Isolation Screening Request 01/10/2024 20:56:33 X-Ray Complete 01/10/2024 20:57:15 01/10/2024 21:04:26 01/10/2024 21:16:46 Bed Assign Complete 01/10/2024 20:57:26 01/10/2024 20:57:26 01/10/2024 20:57:26 Dr Exam Complete 01/10/2024 20:57:26 01/10/2024 20:59:09 01/10/2024 20:59:09 RN Exam Complete 01/10/2024 20:57:26 01/10/2024 21:00:52 01/10/2024 21:00:52 Registration Request 01/10/2024 20:59:09 Dr Exam Complete 01/10/2024 20:59:31 01/10/2024 20:59:31 01/10/2024 20:59:31 Fall Risk Request 01/10/2024 21:00:53 Wet Read Request 01/10/2024 21:16:46 Meds Admin Complete 01/10/2024 21:54:36 01/10/2024 22:14:32 Discharge Complete 01/10/2024 21:59:30 01/10/2024 22:20:27 01/10/2024 22:20:27 Transfer Complete 01/10/2024 22:20:27 01/10/2024 22:20:27 01/10/2024 22:20:27 ADDRESS: [facility] [address] [facility] [id number] PHYS DOC NOTES: MEDICAL INFORMATION: Prescriptions Given: New Medications [id number], [address] [place] [phone], [phone] acetaminophen-oxycodone (Percocet 5 mg-325 mg oral tablet) 1 Tablets By Mouth every 6 hours for 3 Days. Refills: 0. Medications to Continue with No Changes Other Medications amlodipine (amLODIPine 5 mg Tab) 1 Tablets By Mouth every day. TAKE 1 TABLET BY MOUTH EVERY DAY. celecoxib (Celebrex) 200 Milligram By Mouth every day. celecoxib (celecoxib 200 mg Cap) TAKE 1 CAPSULE BY MOUTH EVERY DAY. clonazepam (clonazepam 1 mg Tab) 1 Tablets By Mouth 3 times a day. TAKE 1 TABLET BY MOUTH THREE TIMES A DAY NEEDED FOR ANXIETY. Refills: 0. docusate (Colace 100 mg Cap) 1 Capsules By Mouth 2 times a day. Hold for diarrhea. Refills: 0. Ensure (Ensure Vanilla) Drink 1 bottle (8 fl. oz.) BID. Refills: 5. fluticasone nasal (fluticasone 0.05 mg/inh Nasal Britt) 2 Sprays Nasal Inhalation every day. each nostril. Refills: 5. Misc Prescription (Straight Catheters & Supplies) Use daily, as directed.. Refills: 5. Misc Prescription (walking boot) right foot knee high walking Size small boot dx m21.300, m14.971 Fax to [facility]. Refills: 0. multivitamin with minerals (Therapeutic Multiple Vitamins with Minerals Tab) By Mouth every day. mupirocin topical (mupirocin Top 2% Oint) 1 Application Topical 3 times a day. Refills: 0. nitrofurantoin (nitrofurantoin macrocrystals-monohydrate 100 mg Cap) 1 Capsules By Mouth 2 times a day. Refills: 0. ondansetron (ondansetron 4 mg Dis Tab) 1 Tablets By Mouth every 6 hours as needed Nausea/Vomiting. Refills: 0. ondansetron (Zofran ODT 4 mg Tab-Dis) 1 Tablets By Mouth 3 times a day as needed Nausea. Refills: 1. pantoprazole (Pantoprazole [address] Tab) TAKE 1 TABLET BY MOUTH EVERY DAY. polyethylene glycol 3350 (Miralax 17 gram packet) 17 Gram By Mouth every day. potassium chloride (potassium chloride 10 mEq Cap-ER) 1 Capsules By Mouth every other day. Refills: 2. senna (Senokot 8.6 mg Tab) 2 Tablets By Mouth once a day (at bedtime) as needed for constipation. Refills: 1. sodium chloride 2 gram By Mouth 3 times a day. trazodone (traZODONE 150 mg Tab) 1 Tablets By Mouth once a day (at bedtime). Do not give with clonazepam. Refills: 3. PATIENT EDUCATION INFORMATION: Instructions: Radial Fracture Follow up: With: Address: When: Kye Barrientos [address] [place] [address] Business (1) In 3 days 01/13/2024 With: Address: When: AZUL BATEMAN [address] [place] [address] Business (1) In 3 days DIAGNOSIS: Distal radius fracture; Left wrist pain Normal [facility] ED Note-Physicianon 01-10-20 ED Note-Physician ED Note-Physician Basic Information Time Seen: Fredy BYRD, Jose Bills 01/10/2024 20:59 Chief Complaint Pt tripped into a counter and having L wrist/ hand pain. History of Present Illness Patient is 74-year-old female that presents today for evaluation of her left wrist/hand pain status post FOOSH. She states that she was walking and excellently tripped into the counter trying to catch herself with her left wrist and noted immediate onset pain in that wrist and hand. She states it is difficult to move due to pain. She states that her wrist and fingers do feel tight because of the swelling in her wrist. She does note some bruising as well. She is still able to feel in her fingertips and wiggle her fingers. She did not hit her head and did not lose consciousness. Review of Systems No other aggravating or relieving factors no other associated symptoms no other prior treatments or complaints. Family: Reviewed and noncontributory Social: lives at home Review of systems negative unless otherwise specified in the HPI. Physical Exam Vitals & Measurements T: 36.5 ?C(Oral) HR: 93(Peripheral) RR: 16 BP: 157/66 SpO2: 96% HT: 162 cm WT: 61 kg BMI: 23.24 Diffuse tenderness to palpation diffusely about the left wrist. There is no deformity but there is swelling and bruising noted. There is pain with flexion and extension as well as supination and pronation. There is no tenderness along the remainder of the forearm elbow hand or the anatomical snuffbox. Neurovascular intact distally. Procedure The left upper extremity was immobilized. Cast padding was used to wrap the extremity. A volar wrist splint was applied by Jose Daniel PA-C using orthoglass. The patient tolerated this procedure well. Extremity was examined after application and was found to be neurovascularly intact distally. Medical Decision Making Patient is a 74-year-old female presents today for evaluation of her left wrist/hand pain status post FOOSH. She notes moderate to severe pain in the left wrist. On exam she has diffuse tenderness to palpation diffusely about the left wrist. No deformity but there is swelling and bruising noted. Pain with range of motion. Neurovascularly intact distally. X-rays of the left wrist demonstrate a distal radius fracture. For this reason I placed her in a volar wrist splint (please see above procedure note). Did provide her with a dose of Percocet here in the ED and send her home with a 3-day prescription of this. She will follow-up with Dr. Barrientos orthopedics who she is already established with for further evaluation and management of this. Return to ED precautions were reviewed with the patient at length. Assessment/Plan Distal radius fracture (S52.509A: Unspecified fracture of the lower end of unspecified radius, initial encounter for closed fracture) Left wrist pain (M25.532: Pain in left wrist) Orders: acetaminophen-oxycodone, 1 tab(s), Tab, Oral, Once, Stop date 01/10/24 21:54:00 EDT, STAT, Start date 01/10/24 21:54:00 EDT acetaminophen-oxycodone, 1 tab(s), Oral, q6hr for 3 day(s), 12 tab(s), Refill(s) 0, [id number], 162, cm, 01/10/24 20:56:00 EDT, Height/Length Dosing, 61, kg, 01/10/24 20:56:00 EDT, Weight Dosing Medications Administered Given Percocet 5 mg-325 mg oral tablet, 1 tab(s), Oral Disposition Plan Patient Discharge Condition Stable, improved Discharge Disposition Home Discharge Prescription List Prescriptions Percocet 5 mg-325 mg oral tablet, 1 tab(s), Oral, q6hr Follow-up With When Contact Information Kye Barrientos In 3 days 01/13/[address] [place] [phone]- Business (1) Additional Instructions: AZUL BATEMAN In 3 days [address] [place] [address]- Business (1) Additional Instructions: Patient Education Radial Fracture Attestation Patient seen and evaluated by the physician engineer first assistant. Attending physician was present in the emergency department and supervised care. This visit was performed by both the physician and an APC. I performed all aspects of the MDM as documented. This report was transcribed using voice recognition software. Every effort was made to ensure accuracy, however, inadvertently computerized runstitching machine operator mistakes may be present. Appropriate healthcare PPE was used in evaluating this patient. The patient was placed in a mask. The healthcare provider was wearing mask, gloves, and utilizing proper hand hygiene. All equipment was properly cleansed. I performed a substantive part of the MDM during the patient?s E/M visit. I personally made or approved the documented management plan and acknowledge its risk of complications. (Independent Interpretation) My (EKG/X-Ray/US/CT as applicable) interpretation as above. (Discussion) Management/test interpretation discussed with APC. Problem List/Past Medical History Ongoing Acute UTI At risk for falls Bipolar disorder, manic, moderate BMI 27.0-27.9,adult Ch (more content not included)... Normal [facility] Comment on above: Result Comment: Elec tronically Signed By: Jose Daniel PA-C\.br\Date and Time Signed: 01/10/24 22:21 EDT\.br\Electronically Co-Signed By: Mati Taylor DO\.br\Date and Time Co-Signed: 01/10/24 23:37 EDT ED Patient Summaryon 024 ED Patient Summary ED Patient Summary [address] [address] Patient Discharge Instructions Person Information Name: MAEGAN DYE Age: 74 Years Arrival Date: 01/10/2024 20:33:08 Discharge Diagnosis: Distal radius fracture; Left wrist pain Primary Care Physician: AZUL BATEMAN CNP Provider Information Primary Provider: Mati Taylor DO Advanced Passenger Coach Driver:Fredy BYRD, Jose Adkins. The exam and treatment you received in the Emergency Department were for an urgent problem and are not intended as complete care. It is important that you follow up with a doctor, nurse practitioner, or physician?s engineer first assistant for ongoing care. If your symptoms become worse or you do not improve as expected and you are unable to reach your usual health care provider, you should return to the Emergency Department. We are available 24 hours a day. MAEGAN YDE has been given the following list of patient education materials, prescriptions and follow-up instructions: Follow-up Instructions: With: Address: When: Kye Barrientos [address] [place] [phone] Business (1) In 3 days 01/13/2024 With: Address: When: AZ[facility] BATEMAN [address] [facility] [place] [phone] Business (1) In 3 days In the event that this physician does not participate in your insurance network, please consult with your insurance company to find a nearby participating provider. Patient Education Materials: Radial Fracture A MESSAGE TO ALL PATIENTS REGARDING OPIOIDS PRESCRIPTION OPIOIDS: WHAT YOU NEED TO KNOW Prescription opioids can be used to help relieve yjnxgsio-db-iuzqpu pain and are often prescribed following a surgery or injury, or for certain health conditions. These medications can be an important part of the treatment but also come with serious risks. It is important to work with your healthcare provider to make sure you are getting the safest, most effective care. WHAT ARE THE RISKS AND SIDE EFFECTS OF OPIOID USE? Prescription opioids carry serious risks of addiction and overdose, especially with prolonged use. An opioid overdose, often marked by slowed breathing, can cause sudden . The use of prescription opioids can have a number of side effects as well, even when taken as directed: ? Tolerance?meaning you might need to take more of the medication for the same pain relief ? Physical dependence?meaning you have symptoms of withdrawal when a medication is stopped ? Increased sensitivity to pain ? Constipation ? Nausea, vomiting, and dry mouth ? Sleepiness and dizziness ? Confusion ? Depression ? Low levels of testosterone that can result in lower sex drive, energy, and strength ? Itching and sweating RISKS ARE GREATER WITH: ? History of drug misuse, substance use disorder, or overdose ? Mental health conditions (such as depression or anxiety) ? Sleep apnea ? Older age (65 years and older) ? Avoid alcohol while taking prescription opioids. Also, unless specifically advised by your health care provider, medications to avoid include: ? Benzodiazepines (such as Xanax or Valium) ? Muscle relaxants (such as Soma or Flexeril) ? Hypnotics (such as Ambien or Lunesta) ? Other prescription opioids KNOW YOUR OPTIONS Talk to your health care provider about ways to manage your pain that don?t involve prescription opioids. Some of these options may actually work better and have fewer risks and side effects. Options may include: ? Pain relievers such as acetaminophen, ibuprofen, and naproxen ? Some medication that are also used for depression or seizures ? Physical therapy and exercise ? Cognitive behavioral therapy, a psychological, goal-directed approach, in which patients learn how to modify physical, behavioral, and emotional triggers of pain and stress. IF YOU ARE PRESCRIBED OPIOIDS FOR PAIN: ? Never take opioids in greater amounts or more often than prescribed. ? Follow up with your primary health care provider. o Work together to create a plan on how to manage your pain. o Talk about ways to help manage your pain that don?t involve prescription opioids. o Talk about any and all concerns and side effects. ? Help prevent misuse and abuse o Never sell or share prescription opioids. o Never use another person?s prescription opioids. ? Store prescription opioids in a secure place and out of reach of others (this may include visitors, children, friends, and family). ? Safely dispose of unused prescription opioids: Find your community drug take-back program or your pharmacy mail-back program, or flush them down the toilet, following guidance from the Food and Drug Administration (www.fda.gov/Drugs/Resourc esForYou). ? Visit www.cdc.gov/drugoverdose to learn about the risks of opioids abuse and overdose. ? If you believe you may be st (more content not included)... Normal [facility] C Urineon 01-04-2024 Bacteria identified Cx Nom (U) Microbiology PROCEDURE: Urine Culture [R1] SOURCE: U Random BODY SITE: COLLECTED DATE/TIME: 01/02/2024 11:24 EDT RECEIVED DATE/TIME: 01/02/2024 17:34 EDT START DATE/TIME: 01/02/2024 17:34 EDT FREE TEXT SOURCE: Alla AWAN, Luna AWAN, Luna FINAL REPORTS Final Report [] Verified Date/Time: 01/04/2024 10:42 EDT >100,000 cfu/ml Escherichia coli SUSCEPTIBILITY RESULTS _ LEGEND: S=Susceptible, N/R=Not Reported, Blank=Data not available, or drug not advisable or tested, I=Intermediate, ESBL=Extended spectrum beta-lactamase, R=Resistant, TFG=Thymidine-dependent strain, ANAY=Beta-lactamase positive, REINALDO=mcg/m;(mg/L), S*=Predicted susceptible interp, R*=Predicted resistant interp EC Antibiotic REINALDO Dilutn REINALDO Interp Ampicillin <=8 S Ampicillin/ <=8/4 S Sulbactam Aztreonam <=4 S Cefazolin <=2 S Cefepime <=2 S Ceftazidime <=1 S Ceftazidime/ <=8 S Avibactam Ceftriaxone <=1 S Cefuroxime <=4 S Ciprofloxacin <=0.25 S Ertapenem <=0.5 S Gentamicin <=2 S Levofloxacin <=0.5 S Meropenem <=1 S Nitrofurantoin <=32 S Piperacillin/ <=8 S Tazobactam Tetracycline <=4 S Tobramycin <=2 S Trimethoprim/ <=2/38 S Sulfa Performing Locations R1: This test was performed at: [facility], [address] [place] [address], [id number] , [place], Normal [facility] Comment on above: Performed By: #### 2 [id number] #### [facility] [address] [place] [id number] Ambulatory Visit Summaryon 0 01-02-2024 Ambulatory Visit Summary Normal [facility] Family Medicine Office/Clini c Noteon 01-02-2024 Family Medicine Office/Clinic Note Normal [facility] Comment on above: Result Comment: Elec tronically Signed By: Alla AWAN, Luna\.br\Date and Time Signed: 01/02/24 11:47 EDT Patient Educationon 01-02-20 Patient Education Normal [facility] Heart and Vascular Office/Cl inic Noteon 12-19-2023 Heart and Vascular Office/Clinic Note Heart and Vascular Office/Clinic Note History of Present Illness Here to establish care for underlying obstructive sleep apnea. The patient reports that she was told while in the hospital that she stops breathing frequently and her oxygen goes down while asleep. Her family had told her also that she snores and stops breathing and hence advised a sleep study. She reports her sleep quality is poor and has mild fatigue and daytime sleepiness throughout the day. Given the above the patient underwent a sleep study and is here to discuss results and guide further management. Review of Systems Constitutional: no fever, no chills, no sweats, no weakness Skin: no Jaundice, no rash, no lesions, no petechiae ENT: no ear pain, no sore throat, no congestion, no hoarseness Respiratory: Denies shortness of breath, cough or wheezing Cardiovascular: no chest pain, no palpitations, no edema Gastrointestinal: no nausea, no vomiting, no diarrhea, no GI bleeding Genitourinary: no dysuria, no hematuria, no discharge, no pain Musculoskeletal: no back pain, no trauma Neurologic: no headache, no dizziness, no numbness, no weakness Psychiatric: no irritability, no mood swings/depression. Heme/Lymph: no bleeding tendency, no bruising tendency, no petechiae, no swollen nodes Allergy/Immunologic: no seasonal allergies, no food allergies, no recurrent infections, no impaired immunity Additional ROS info: Except as noted in the above Review of Systems and in the History of Present Illness all other systems have been reviewed and are negative or noncontributory. Physical Exam General: Awake, alert, in no acute distress Skin: warm, dry Head: no trauma, normocephalic. Prolonged soft palate Neck: Trachea midline, no adenopathy, no tenderness Eye: normal conjunctiva, sclera clear ENMT: TM's clear, oral mucosa moist, no pharyngeal erythema or exudate Cardiovascular: regular rate and rhythm, normal peripheral perfusion Respiratory: Good breath sounds to both lung cutler without wheezing or crackles. Gastrointestinal: soft, non distended, no tenderness, no guarding. Back: No tenderness, Normal ROM, Normal alignment. Extremities: no deformity, no trauma Neurological: oriented x 4, LOC appropriate for age, CN II-XII intact, motor strength equal & normal bilaterally, sensation equal & normal bilaterally, speech normal Psychiatric: cooperative, affect appropriate for age, normal judgement, normal psychiatric thoughts. Assessment/Plan 1. DORA (obstructive sleep apnea) (G47.33: Obstructive sleep apnea (adult) (pediatric)) The patient's sleep study was reviewed and results were discussed with the patient in details. Evidence of severe underlying obstructive sleep apnea with an apnea hypotony index of 66.3/hour with significant oxygen desaturation noted. The etiology of obstructive sleep apnea and methods of treatment were discussed with the patient in details. Her CPAP titration results were reviewed with suboptimal titration and persistent events on all tested pressures. She is agreeable to treatment. I will arrange for an auto titrating CPAP machine with a pressure range of 5 to 20 cm via mask of her choice with heated humidity and see her back after 6 to 8 weeks with a download from her machine to reevaluate her treatment plan. She will call me back in the meantime if any issues. Follow-up With When Contact Information Sofia RAMOS, Gala Christie, PUL, [place] Within 6 weeks [address] [facility] [place] [address]- Additional Instructions: Problem List/Past Medical History Ongoing Acute UTI At risk for falls Bipolar disorder, manic, moderate BMI 27.0-27.9,adult Charcot's joint of right foot Chronic ankle pain Chronic constipation Chronic obstructive pulmonary disease Chronic pain in right foot CKD (chronic kidney disease), stage III Cognitive impairment COPD without exacerbation Essential hypertriglyceridemia HTN (hypertension) Hyponatremia Insomnia Neurogenic bladder disorder Non-smoker OP (osteoporosis) DORA (obstructive sleep apnea) Osteoarthritis PTSD (post-traumatic stress disorder) Self-care deficit SIADH (syndrome of inappropriate ADH production) Stage 3 chronic kidney disease Thyroid nodule Urinary retention with incomplete bladder emptying Vitamin D deficiency Historical Accidental fall Agent [place] AST[facility]MA Benzodiazepine withdrawal Bipolar disorder Callus of foot Cerebral hemorrhage chronic back pain Chronic GERD Chronic kidney disease, stage 2 (mild) Chronic pain Closed fracture of base of skull with concussion code blue d/t hypokalemia collapsed lung on the right compression fx back Constipation COPD - Chronic obstructive pulmonary disease depression DVT (deep venous thrombosis) Dysuria Fatigue Foot deformity, acquired GERD without esophagitis Head trauma HTN - Hypertension Hypertension Hypo-osmolality and or hyponat (more content not included)... Normal [facility] Comment on above: Result Comment: Elec tronically Signed By: Sofia RAMOS, Gala Christie\.br\Date and Time Signed: 12/19/23 12:30 EDT eGFRon 12-17-2023 eGFR 58 mL/min/1.73 m2 Low >=59 [facility] Comment on above: Order Comment: Order added by Discern Expert. Performed By: #### 1 [id number] #### [facility] [address] [place] [address] Physician Orderon 11-19-2023 Physician Order [id number]#1.00TIFF [facility] Consenton 11-08-2023 Consent [id number]#1.00TIFF [facility] Patient Eval Forms Officeon 11-08-2023 Patient Eval Forms Office [id number]#1.00TIFF [facility] Patient Eval Forms Office [id number]#1.00TIFF [facility] Consent for Treatmenton 10-24 Consent for Treatment [id number]#1.00TIFF Normal [facility] CMPon 10-29-2023 Albumin [Mass/Vol] 4.6 g/dL Normal 3.3-5.0 [facility] Comment on above: Performed By: #### 2 344136 #### [facility] [address] [place] [address] Albumin/Globulin (S) [Mass conc ratio] 1.8 Normal 1.1-2.2 [facility] Comment on above: Performed By: #### 2 994028 #### [facility] [address] [place] [address] ALP [Catalytic activity/Vol] 89 Int._Unit/L Normal 21-98 [facility] Comment on above: Performed By: #### 2 [id number] #### [facility] [address] [place] [address] ALT No additional P-5'-P [Catalytic activity/Vol] 9 Int._Unit/L Normal 6-46 [facility] Comment on above: Performed By: #### 2 028642 #### [facility] [address] [place] [address] Anion gap [Moles/Vol] 12 mmol/L Normal 6-16 [facility] Comment on above: Performed By: #### 2 954069 #### [facility] [address] [place] [address] AST [Catalytic activity/Vol] 16 Int._Unit/L Normal 5-43 [facility] Comment on above: Performed By: #### 2 420842 #### [facility] [address] [place] [address] Bilirubin [Mass/Vol] 0.6 mg/dL Normal 0.0-1.1 [facility] Comment on above: Performed By: #### 2 353208 #### [facility] [address] [place] [address] Calcium [Mass/Vol] 9.4 mg/dL Normal 8.9-11.1 [facility] Comment on above: Performed By: #### 2 151730 #### [facility] [address] [place] [address] Chloride [Moles/Vol] 100 mmol/L Low 101-111 [facility] Comment on above: Performed By: #### 2 657102 #### [facility] [address] [place] [address] CO2 [Moles/Vol] 30 mmol/L Normal 21-31 [facility] Comment on above: Performed By: #### 2 334923 #### [facility] [address] [place] [address] Creatinine [Mass/Vol] 1.1 mg/dL Normal 0.5-1.3 [facility] Comment on above: Performed By: #### 2 498349 #### [facility] [address] [place] [address] Globulin (S) [Mass/Vol] 2.5 g/dL Normal 1.4-4.0 [facility] Comment on above: Performed By: #### 2 942331 #### [facility] [address] [place] [address] Glucose [Mass/Vol] 115 mg/dL Normal 55-199 [facility] Comment on above: Performed By: #### 2 733782 #### [facility] [address] [place] [address] Potassium [Moles/Vol] 3.8 mmol/L Normal 3.5-5.3 [facility] Comment on above: Performed By: #### 2 921301 #### [facility] [address] [place] [address] Protein [Mass/Vol] 7.1 g/dL Normal 6.0-7.8 [facility] Comment on above: Performed By: #### 2 623846 #### [facility] [address] [place] [address] Sodium [Moles/Vol] 138 mmol/L Normal 135-145 [facility] Comment on above: Performed By: #### 2 001051 #### [facility] [address] [place] [address] Urea nitrogen [Mass/Vol] 13 mg/dL Normal 5-21 [facility] Comment on above: Performed By: #### 2 508193 #### [facility] [address] [place] [address] Urea nitrogen/Creatinine [Mass ratio] 12 No Units Normal 10-20 [facility] Comment on above: Performed By: #### 2 580632 #### [facility] [address] [place] [address] Physician Orderon 10-29-2023 Physician Order [id number]#1.00TIFF Normal [facility] Physician Order [id number]#1.00TIFF Normal [facility] Vit B12on 10-29-2023 Cobalamin (Vitamin B12) [Mass/Vol] 413 pg/mL Normal 50-1500 [facility] Comment on above: Performed By: #### 2 852023 #### [facility] [address] [place] [address] eGFRon 10-29-2023 eGFR 52 mL/min/1.73 m2 Low >=59 [facility] Comment on above: Order Comment: Order added by Discern Expert. Performed By: #### 1 [id number] #### [facility] [address] [place] [address] Insurance Correspondenceon 0 10-28-2023 Insurance Correspondence [id number]#1.00TIFF Normal [facility] Consenton 10-10-2023 Consent [id number]#1.00TIFF Normal [facility] Patient Eval Forms Officeon 10-10-2023 Patient Eval Forms Office [id number]#1.00TIFF Normal [facility] Patient Eval Forms Office [id number]#1.00TIFF Normal [facility] Patient Eval Forms Office [id number]#1.00TIFF Normal [facility] Consent for Treatmenton 09-23 Consent for Treatment [id number]#1.00TIFF Normal [facility] Discharge Instructionson Discharge Instructions [id number]#1.00TIFF Normal [facility] Medication Listson 4 Medication Lists [id number]#1.00TIFF Normal [facility] Referral Authorizationson Referral Authorizations [id number]#1.00TIFF Normal [facility] Transfer Documentson 024 Transfer Documents [id number]#1.00TIFF Normal [facility] Physician Orderon 10-03-2023 Physician Order [id number]#1.00TIFF [facility] Discharge Instructionson Discharge Instructions [id number]#1.00TIFF Normal [facility] Transfer Documentson 024 Transfer Documents [id number]#1.00TIFF Normal [facility] Discharge Note-Nursingon Discharge Note-Nursing Normal [facility] Discharge Note-Nursing Normal [facility] Interdisciplinary Note - Maximus e Manageron 09-12-2023 Interdisciplinary Note - Otter Trawler Boatswain [facility] Comment on above: Result Comment: Elec tronically Signed By: Latasha Hernández\.br\Date and Time Signed: 09/12/23 13:55 EDT Interdisciplinary Note - Maximus e Manageron 09-11-2023 Interdisciplinary Note - Otter Trawler Boatswain Normal [facility] Comment on above: Result Comment: Elec tronically Signed By: Latasha Hernández\.br\Date and Time Signed: 09/11/23 13:14 EDT Progress Note-Physicianon Progress Note-Physician Normal [facility] Comment on above: Result Comment: Elec tronically Signed By: Jony SEE MD\.br\Date and Time Signed: 09/11/23 11:21 EDT C Urineon 09-10-2023 Bacteria identified Cx Nom (U) Normal [facility] Comment on above: Performed By: #### 4 [id number], [id number] ####[facility] [address] [place] [address] CHEMISTRYOrdered By: Lab ROP User on 09-10-2023 Glucose [Mass/Vol] 72 mg/dL Normal 55 - 99 mg/dL [facility] Comment on above: Result Comment: Christina VAUGHN POC Device SN [id number] 1 Invalid Interpretation Code [facility] Subsection POC User ID [id number] 1 Invalid Interpretation Code [facility] Subsection POC Username JACQUELINE TODD Invalid Interpretation Code [facility] P[facility] Subsection Capillary Glucose POCon 08-24 Glucose [Mass/Vol] 72 mg/dL Normal 55-99 [facility] Comment on above: Result Comment: Christina VAUGHN Performed By: #### 2 [id number] ####[facility] [address] [place] [address] Interdisciplinary Note - Maximus e Manageron 09-10-2023 Interdisciplinary Note - Otter Trawler Boatswain Normal [facility] Comment on above: Result Comment: Elec tronically Signed By: Latasha Hernández\.br\Date and Time Signed: 09/10/23 11:32 EDT Progress Note-Physicianon Progress Note-Physician Normal [facility] Comment on above: Result Comment: Elec tronically Signed By: Jony SEE MD\.br\Date and Time Signed: 09/10/23 10:39 EDT Interdisciplinary Note - Maximus e Manageron 09-09-2023 Interdisciplinary Note - Otter Trawler Boatswain Normal [facility] Comment on above: Result Comment: Elec tronically Signed By: Latasha Hernández\.br\Date and Time Signed: 09/09/23 13:42 EDT Progress Note-Physicianon Progress Note-Physician Normal [facility] Comment on above: Result Comment: Elec tronically Signed By: Jony SEE MD\.br\Date and Time Signed: 09/09/23 09:31 EDT ED Note-Physicianon 09-08-19 ED Note-Physician Normal [facility] Comment on above: Result Comment: Elec tronically Signed By: Rodrigue John PA-C\.br\Date and Time Signed: 09/07/23 22:25 EDT\.br\Electronically Co-Signed By: Santiago Harrington DO\.br\Date and Time Co-Signed: 09/08/23 01:03 EDT Interdisciplinary Note - Maximus e Manageron 09-08-2023 Interdisciplinary Note - Otter Trawler Boatswain Normal [facility] Comment on above: Result Comment: Elec tronically Signed By: Latasha Hernández\.br\Date and Time Signed: 09/08/23 12:42 EDT Interdisciplinary Note - Soc ial Workeron 09-08-2023 Interdisciplinary Note - Lye Boiler Normal [facility] Progress Note-Physicianon Progress Note-Physician [facility] Comment on above: Result Comment: Elec tronically Signed By: Jony SEE MD\.br\Date and Time Signed: 09/08/23 10:48 EDT UA with Cult Rflxon 09-08-19 24 UA Spec Desc Catheter Normal [facility] Comment on above: Result Comment: Test results were corrected for specimen description. Performed By: #### 4 [id number], [id number] ####[facility] [address] [place] [address] CBC w/ Auto Diffon 4 Basophils/100 WBC (Bld) 0.6 % Normal 0.0-2.0 [facility] Comment on above: Performed By: #### 2 689286, 5796153, 39660049 ####[address] [address] Basophils/Leukocytes Auto (Bld) [Pure # fraction] 0.0 E9/L Normal 0.0-0.2 [facility] Comment on above: Performed By: #### 2 955997, 3436802, [id number] ####[address] [address] Eosinophils (Bld) [#/Vol] 0.2 E9/L Normal 0.0-0.5 [facility] Comment on above: Performed By: #### 2 610253, 6022992, 60519661 ####[address] [address] Eosinophils/100 WBC (Bld) 2.3 % Normal 0.0-8.0 [facility] Comment on above: Performed By: #### 2 405032, 3744817, [id number] ####[address] [address] Erythrocyte distribution width (RBC) [Ratio] 12.5 % Normal 10.9-14.2 [facility] Comment on above: Performed By: #### 2 079027, 3402166, 82144939 ####[address] [address] Hematocrit (Bld) [Volume fraction] 39.1 % Normal 34.0-46.0 [facility] Comment on above: Performed By: #### 2 098954, 2164772, 09371279 ####[address] [address] Hemoglobin (Bld) [Mass/Vol] 12.8 g/dL Normal 12.0-16.0 [facility] Comment on above: Performed By: #### 2 121806, 4267040, 51576452 ####[address] [address] Lymphocytes (Bld) [#/Vol] 1.5 E9/L Normal 1.0-4.0 [facility] Comment on above: Performed By: #### 2 445534, 4692294, 79693573 ####[address] [address] Lymphocytes/100 WBC (Bld) 20.0 % Normal 14.0-50.0 [facility] Comment on above: Performed By: #### 2 891204, 3192117, 06852121 ####[address] [address] MCH (RBC) [Entitic mass] 28.5 pg Normal 27.0-34.0 [facility] Comment on above: Performed By: #### 2 495065, 8083617, 60140877 ####[address] [address] MCHC (RBC) [Mass/Vol] 32.7 g/dL Normal 31.4-36.0 [facility] Comment on above: Performed By: #### 2 473612, 9328854, 46461021 ####[address] [address] MCV (RBC) [Entitic vol] 87.1 fL Normal 80.0-100.0 [facility] Comment on above: Performed By: #### 2 083331, 0028650, 66242821 ####[address] [address] Monocytes (Bld) [#/Vol] 0.7 E9/L Normal 0.2-1.0 [facility] Comment on above: Performed By: #### 2 633630, 3369013, 64805162 ####[address] [address] Neutrophils (Bld) [#/Vol] 5.0 E9/L Normal 2.0-7.5 [facility] Comment on above: Performed By: #### 2 302882, 6615257, 56144329 ####[address] [address] Neutrophils/100 WBC (Bld) 67.6 % Normal 36.0-75.0 [facility] Comment on above: Performed By: #### 2 650158, 1705093, 41824019 ####[facility] [address] [place] [address] Platelet mean volume (Bld) [Entitic vol] 7.4 fL Normal 6.4-10.8 [facility] Comment on above: Performed By: #### 2 132956, 9100336, 81515169 ####[address] [address] Platelets (Bld) [#/Vol] 257.0 E9/L Normal 150.0-500. 0 [facility] Comment on above: Performed By: #### 2 433905, 1971839, 68863714 ####[address] [address] RBC (Bld) [#/Vol] 4.5 E12/L Normal 4.3-5.9 [facility] Comment on above: Performed By: #### 2 512864, 6445930, 29027948 ####[address] [address] WBC corrected for nucl RBC Auto (Bld) [#/Vol] 7.5 E9/L Normal 4.0-11.0 [facility] Comment on above: Performed By: #### 2 906564, 2069768, 34850141 ####[address] [address] CHEMISTRYOrdered By: SYSTEM SYSTEM on 09-07-2023 Amphetamines Screen method >1000 ng/mL Ql (U) NEGATIVE 8 (09/07/23 8:55 PM) Normal NEGATIVE [facility] Comment on above: Interpretive Data: N egative Cutoff: <1000 ng/mL Barbiturates Screen Ql (U) NEGATIVE 9 (09/07/23 8:55 PM) Normal NEGATIVE [facility] Comment on above: Interpretive Data: N egative Cutoff: <200 ng/mL Benzodiazepines Ql (U) NEGATIVE 1 (09/07/23 8:55 PM) Normal NEGATIVE [facility] Comment on above: Interpretive Data: N egative Cutoff: <200 ng/mL Cannabinoids Screen Ql (U) NEGATIVE 7 (09/07/23 8:55 PM) Normal NEGATIVE [facility] Comment on above: Interpretive Data: N egative Cutoff: <50 ng/mL Cocaine Ql (U) NEGATIVE 2 (09/07/23 8:55 PM) Normal NEGATIVE [facility] Comment on above: Interpretive Data: N egative Cutoff: <300 ng/mL Opiates Screen Ql (U) POSITIVE 4 *ABN* (09/07/23 8:55 PM) Invalid Interpretation Code NEGATIVE [facility] Comment on above: Interpretive Data: N egative Cutoff: <300 ng/mL Phencyclidine Screen method >25 ng/mL Ql (U) NEGATIVE 5 (09/07/23 8:55 PM) Normal NEGATIVE [facility] Comment on above: Interpretive Data: N egative Cutoff: <25 ng/mL These drug screen results are to be used for medical (i.e., treatment) purposes only. Unconfirmed drug screening results must not be used for non-medical purposes (e.g., employment testing, legal testing). U Fentanyl NEGATIVE 11 (09/07/23 8:55 PM) Normal NEGATIVE [facility] Comment on above: Interpretive Data: N egative Cutoff: <5 ng/mL These drug screen results are to be used for medical (i.e., treatment) purposes only. Unconfirmed drug screening results must not be used for non-medical purposes (e.g., employment testing, legal testing). Albumin [Mass/Vol] 4.2 g/dL Normal 3.3 - 5.0 gm/dL [facility] Albumin/Globulin [Mass ratio] 1.5 {ratio} Normal 1.1 - 2.2 [facility] ALP [Catalytic activity/Vol] 85 [iU]/d Normal 21 - 98 Int._Unit/ L [facility] ALT No additional P-5'-P [Catalytic activity/Vol] 8 [iU]/d Normal 6 - 46 Int._Unit/ L [facility] Anion gap [Moles/Vol] 12 mmol/L Normal 6 - 16 mEq/L [facility] AST [Catalytic activity/Vol] 17 [iU]/d Normal 5 - 43 Int._Unit/ L [facility] Bilirubin [Mass/Vol] 0.4 mg/dL Normal 0.0 - 1 .1 mg/dL [facility] Calcium [Mass/Vol] 9.8 mg/dL Normal 8.9 - 11. 1 mg/dL [facility] Chloride [Moles/Vol] 99 mmol/L Low 101 - 1 11 mmol/L [facility] CO2 [Moles/Vol] 30 mmol/L Normal 21 - 31 mmol/L [facility] Creatinine [Mass/Vol] 1.1 mg/dL Normal 0.5 - 1.3 mg/dL [facility] eGFR 52 mL/min/1.73 m2 Low >=59mL/min /1.73 m2 [facility] Ethanol Lvl mg/dL Normal <=11mg/dL [facility] Globulin (S) [Mass/Vol] 2.8 g/dL Normal 1.4 - 4.0 gm/dL [facility] Glucose [Mass/Vol] 107 mg/dL Normal 55 - 199 mg/dL [facility] Potassium [Moles/Vol] 4.3 mmol/L Normal 3.5 - 5.3 mmol/L [facility] Protein [Mass/Vol] 7.0 g/dL Normal 6.0 - 7.8 gm/dL [facility] Sodium [Moles/Vol] 137 mmol/L Normal 135 - 145 mmol/L [facility] Urea nitrogen [Mass/Vol] 23 mg/dL High 5 - 21 mg/dL [facility] Urea nitrogen/Creatinine [Mass ratio] 21 mg/mg High 10 - 20 [facility] CMPon 09-07-2023 Albumin [Mass/Vol] 4.2 g/dL Normal 3.3-5.0 [facility] Comment on above: Order Comment: pt us ing restroom, will check back. [id number] Performed By: #### 2 253495, 8262901, [id number] ####[facility] [address] [place] [address] Albumin/Globulin (S) [Mass conc ratio] 1.5 Normal 1.1-2.2 [facility] Comment on above: Order Comment: pt us ing restroom, will check back. [id number] Performed By: #### 2 103328, 2694263, 47540009 ####[facility] [address] [place] [address] ALP [Catalytic activity/Vol] 85 Int._Unit/L Normal 21-98 [facility] Comment on above: Order Comment: pt us ing restroom, will check back. [id number] Performed By: #### 2 153410, 4688067, 67769423 ####[facility] [address] [place] [address] ALT No additional P-5'-P [Catalytic activity/Vol] 8 Int._Unit/L Normal 6-46 [facility] Comment on above: Order Comment: pt us ing restroom, will check back. [id number] Performed By: #### 2 475479, 8114510, 07098283 ####[facility] [address] [place] [address] Anion gap [Moles/Vol] 12 mmol/L Normal 6-16 [facility] Comment on above: Order Comment: pt us ing restroom, will check back. [id number] Performed By: #### 2 155096, 9976163, 11298957 ####[facility] [address] [place] [address] AST [Catalytic activity/Vol] 17 Int._Unit/L Normal 5-43 [facility] Comment on above: Order Comment: pt us ing restroom, will check back. [id number] Performed By: #### 2 273768, 1139788, 03373785 ####[facility] [address] [place] [address] Bilirubin [Mass/Vol] 0.4 mg/dL Normal 0.0-1.1 [facility] Comment on above: Order Comment: pt us ing restroom, will check back. [id number] Performed By: #### 2 358782, 3767127, 95710398 ####[facility] [address] [place] [address] Calcium [Mass/Vol] 9.8 mg/dL Normal 8.9-11.1 [facility] Comment on above: Order Comment: pt us ing restroom, will check back. [id number] Performed By: #### 2 413323, 7258803, 20062080 ####[facility] [address] [place] [address] Chloride [Moles/Vol] 99 mmol/L Low 101-111 [facility] Comment on above: Order Comment: pt us ing restroom, will check back. [id number] Performed By: #### 2 543037, 8755947, 46439869 ####[facility] [address] [place] [address] CO2 [Moles/Vol] 30 mmol/L Normal 21-31 [facility] Comment on above: Order Comment: pt us ing restroom, will check back. [id number] Performed By: #### 2 720967, 7158729, 42665604 ####[facility] [address] [place] [address] Creatinine [Mass/Vol] 1.1 mg/dL Normal 0.5-1.3 [facility] Comment on above: Order Comment: pt us ing restroom, will check back. [id number] Performed By: #### 2 688783, 0705560, 12953949 ####[facility] [address] [place] [address] Globulin (S) [Mass/Vol] 2.8 g/dL Normal 1.4-4.0 [facility] Comment on above: Order Comment: pt us ing restroom, will check back. [id number] Performed By: #### 2 891794, 1119148, 67729077 ####[facility] [address] [place] [address] Glucose [Mass/Vol] 107 mg/dL Normal 55-199 [facility] Comment on above: Order Comment: pt us ing restroom, will check back. [id number] Performed By: #### 2 331888, 2185961, 96550747 ####[facility] [address] [place] [address] Potassium [Moles/Vol] 4.3 mmol/L Normal 3.5-5.3 [facility] Comment on above: Order Comment: pt us ing restroom, will check back. [id number] Performed By: #### 2 495539, 3004307, 93538625 ####[facility] [address] [place] [address] Protein [Mass/Vol] 7.0 g/dL Normal 6.0-7.8 [facility] Comment on above: Order Comment: pt us ing restroom, will check back. [id number] Performed By: #### 2 655838, 4980206, 17099898 ####[facility] [address] [place] [address] Sodium [Moles/Vol] 137 mmol/L Normal 135-145 [facility] Comment on above: Order Comment: pt us ing restroom, will check back. [id number] Performed By: #### 2 250245, 0741979, 74981487 ####[facility] [address] [place] [address] Urea nitrogen [Mass/Vol] 23 mg/dL High 5-21 [facility] Comment on above: Order Comment: pt us ing restroom, will check back. [id number] Performed By: #### 2 659379, 1619635, 29031279 ####[facility] [address] [place] [address] Urea nitrogen/Creatinine [Mass ratio] 21 No Units High 10-20 [facility] Comment on above: Order Comment: pt us ing restroom, will check back. [id number] Performed By: #### 2 644104, 6727970, 74796195 ####[facility] [address] [place] [address] Consent for Treatmenton 08-24 Consent for Treatment [id number]#1.00TIFF Normal [facility] ED Clinical Summaryon 2023 ED Clinical Summary Normal Kait mccray [facility] ED Note-Nursingon 09-07-2023 ED Note-Nursing spoke with Irma Chakraborty at this time, pt. was evaluated last night and does not meet psychiatric admission criteria. LULA Husain speaks with MICH over the phone at this time. Normal [facility] ED Patient Education Noteon 09-07-2023 ED Patient Education Note Normal [facility] ED Patient Summaryon 024 ED Patient Summary Normal [facility] Ethanolon 09-07-2023 Ethanol Lvl <10 Normal <=11 [facility] Comment on above: Performed By: #### 2 179564 ####[facility] [address] [place] [address] HEMATOLOGYOrdered By: SYSTEM SYSTEM on 09-07-2023 Basophils/100 WBC (Bld) 0.6 % Normal 0.0 - 2.0 % [facility] Basophils/Leukocytes Auto (Bld) [Pure # fraction] 0.0 E9/L Normal 0.0 - 0.2 E9/L [facility] Eosinophils (Bld) [#/Vol] 0.2 E9/L Normal 0.0 - 0.5 E9/L [facility] Eosinophils/100 WBC (Bld) 2.3 % Normal 0.0 - 8.0 % [facility] Erythrocyte distribution width (RBC) [Ratio] 12.5 % Normal 10.9 - 14.2 % [facility] Hematocrit (Bld) [Volume fraction] 39.1 % Normal 34.0 - 46.0 % [facility] Hemoglobin (Bld) [Mass/Vol] 12.8 g/dL Normal 12.0 - 16.0 gm/dL [facility] Lymphocytes (Bld) [#/Vol] 1.5 E9/L Normal 1.0 - 4.0 E9/L [facility] Lymphocytes/100 WBC (Bld) 20.0 % Normal 14.0 - 50.0 % [facility] MCH (RBC) [Entitic mass] 28.5 pg Normal 27.0 - 34.0 pg Remisol Heme MCHC (RBC) [Mass/Vol] 32.7 g/dL Normal 31.4 - 36.0 gm/dL Remisol Heme MCV (RBC) [Entitic vol] 87.1 fL Normal 80.0 - 100.0 fL Remisol Heme Monocytes (Bld) [#/Vol] 0.7 E9/L Normal 0.2 - 1.0 E9/L Remisol Heme Monocytes/100 WBC (Bld) 9.5 % Normal 4.0 - 14.0 % Remisol Heme Neutrophils (Bld) [#/Vol] 5.0 E9/L Normal 2.0 - 7.5 E9/L Remisol Heme Neutrophils/100 WBC (Bld) 67.6 % Normal 36.0 - 75.0 % Remisol Heme Platelet mean volume (Bld) [Entitic vol] 7.4 fL Normal 6.4 - 10.8 fL Remisol Heme Platelets (Bld) [#/Vol] 257.0 E9/L Normal 150.0 - 500.0 E9/L Remisol Heme RBC (Bld) [#/Vol] 4.5 E12/L Normal 4.3 - 5.9 E12/L [facility] Heme WBC corrected for nucl RBC Auto (Bld) [#/Vol] 7.5 E9/L Normal 4.0 - 11.0 E9/L Remisol Heme Message from Medicareon 08-24 Message from Medicare [id number] Normal [facility] Pre-Arrival Noteon 4 Pre-Arrival Note Normal [facility] U Drug Screenon 09-07-2023 Amphetamines Screen method >1000 ng/mL Ql (U) Negative Normal NEGATIVE [facility] Comment on above: Result Comment: Nega tive Cutoff: <1000 ng/mL Performed By: #### 2 [id number] ####[facility] [address] [place] [address] Barbiturates Screen Ql (U) Negative Normal NEGATIVE [facility] Comment on above: Result Comment: Nega tive Cutoff: <200 ng/mL Performed By: #### 2 [id number] ####[facility] [address] [place] [address] Benzodiazepines Ql (U) Negative Normal NEGATIVE [facility] Comment on above: Result Comment: Nega tive Cutoff: <200 ng/mL Performed By: #### 2 [id number] ####[address] [place] [address] Cannabinoids Screen Ql (U) Negative Normal NEGATIVE [facility] Comment on above: Result Comment: Nega tive Cutoff: <50 ng/mL Performed By: #### 2 [id number] ####[address] [address] Cocaine Ql (U) Negative Normal NEGATIVE [facility] Comment on above: Result Comment: Nega tive Cutoff: <300 ng/mL Performed By: #### 2 [id number] ####[place] [address] Opiates Screen Ql (U) Positive Abnormal NEGATIVE [facility] Comment on above: Result Comment: Nega tive Cutoff: <300 ng/mL Performed By: #### 2 [id number] ####[place] [address] Phencyclidine Screen method >25 ng/mL Ql (U) Negative Normal NEGATIVE [facility] Comment on above: Result Comment: Nega tive Cutoff: <25 ng/mLThese drug screen results are to be used for medical (i.e., treatment) purposes only. Unconfirmed drug screening results must not be used for non-medical purposes (e.g., employment testing, legal testing). Performed By: #### 2 [id number] ####[place] [address] U Fentanyl Negative Normal NEGATIVE [facility] Comment on above: Result Comment: Nega tive Cutoff: <5 ng/mLThese drug screen results are to be used for medical (i.e., treatment) purposes only. Unconfirmed drug screening results must not be used for non-medical purposes (e.g., employment testing, legal testing). Performed By: #### 2 [id number] ####[address] [place] [address] UA with Cult Rflxon 09-07-19 24 Bacteria Auto Ql (U) Trace Normal Trace Fish er [facility] Comment on above: Performed By: #### 4 [id number], [id number] ####[facility] [address] [place] [address] Bilirubin Ql (U) Negative Normal Negative [facility] Comment on above: Performed By: #### 4 [id number], [id number] ####[address] [address] Clarity (U) Clear Normal Clear [facility] Comment on above: Performed By: #### 4 [id number], [id number] ####[address] [address] Color (U) Light-Yellow Normal Yellow [facility] Comment on above: Result Comment: Micr oscopic readings are only performed on those samples that meet specific criteria set forth by [facility]. Performed By: #### 4 [id number], [id number] ####[place] [address] Crystals.amorphous Computer assisted Ql (U) Present Abnormal [facility] Comment on above: Performed By: #### 4 [id number], [id number] ####[place] [id number] Epithelial cells.squamous Auto (Urine sed) [#/Area] 0-2 Normal 0-2 [facility] Comment on above: Performed By: #### 4 [id number], [id number] ####[facility] [address] [place] [address] Glucose Ql (U) Negative Normal Negative [facility] Comment on above: Performed By: #### 4 [id number], [id number] ####[address] [address] Hemoglobin Auto test strip (U) [Mass/Vol] Negative Normal Negative [facility] Comment on above: Performed By: #### 4 [id number], [id number] ####[address] [address] Ketones Auto test strip Ql (U) Negative Normal Negative [facility] Comment on above: Performed By: #### 4 [id number], [id number] ####[facility] [address] [place] [address] Leukocyte esterase Auto test strip Ql (U) 250 Gretchen/uL Abnormal Negative [facility] Comment on above: Performed By: #### 4 [id number], [id number] ####[address] [address] Mucus Auto Ql (U) Trace Normal Negative [facility] Comment on above: Performed By: #### 4 [id number], [id number] ####[address] [address] Nitrite Auto test strip Ql (U) Negative Normal Negative [facility] Comment on above: Performed By: #### 4 [id number], [id number] ####[place] [address] pH (U) 6.0 [pH] Invalid Interpretation Code 5.0-9.0 [facility] Comment on above: Performed By: #### 4 [id number], [id number] ####[address] [address] Protein Ql (U) Negative Normal Negative [facility] Comment on above: Performed By: #### 4 [id number], [id number] ####[address] [address] RBC Ql (U) 0-3 Normal 0-3 [facility] Comment on above: Performed By: #### 4 [id number], [id number] ####[address] [address] Specific gravity (U) [Rel density] 1.015 Invalid Interpretation Code 1.005-1.03 0 [facility] Comment on above: Performed By: #### 4 [id number], [id number] ####[address] [address] Transitional cells Computer assisted (U) [#/Area] 0-2 Normal 0-2 [facility] Comment on above: Performed By: #### 4 [id number], [id number] ####[facility] [address] [place] [address] Urobilinogen (U) [Mass/Vol] Negative Normal Negative [facility] Comment on above: Performed By: #### 4 [id number], [id number] ####[facility] [address] [place] [address] WBC Auto (Urine sed) [#/Area] 16-25 Abnormal 0-5 [facility] Comment on above: Performed By: #### 4 [id number], [id number] ####[facility] [address] [place] [address] URINALYSISOrdered By: SYSTEM SYSTEM on 09-07-2023 Bacteria Auto Ql (U) Trace graded/HPF Normal Tra cegrade d/HPF [facility] UA Auto SS Bilirubin Ql (U) Negative Normal Negativemg /dL [facility] UA Auto SS Clarity (U) Clear (09/07/23 8:55 PM) Normal Clear [facility] UA Auto SS Color (U) Light-Yellow 3 (09/07/23 8:55 PM) Normal Yellow [facility] UA Auto SS Comment on above: Interpretive Data: M icroscopic readings are only performed on those samples that meet specific criteria set forth by [facility]. Crystals.amorphous Computer assisted Ql (U) Present graded/HPF Invalid Interpretation Code [facility] UA Auto SS Epithelial cells.squamous Auto (Urine sed) [#/Area] 0-2 graded/HPF Normal 0-2graded/ HPF [facility] Auto SS Glucose Ql (U) Negative Normal Negativemg /dL [facility]A Auto SS Hemoglobin Auto test strip (U) [Mass/Vol] Negative Normal Negativemg /dL [facility] Auto SS Ketones Auto test strip Ql (U) Negative Normal Negativemg /dL [facility] UA Auto SS Leukocyte esterase Auto test strip Ql (U) 250 Gretchen/uL Gretchen/uL Invalid Interpretation Code NegativeLe u/uL [facility] UA Auto SS Mucus Auto Ql (U) Trace graded/LPF Normal Negati vegr aded/LPF [facility] UA Auto SS Nitrite Auto test strip Ql (U) Negative Normal Negativemg /dL [facility] UA Auto SS pH (U) 6.0 *NA* (09/07/23 8:55 PM) Invalid Interpretation Code 5.0 - 9.0 [facility] UA Auto SS Protein Ql (U) Negative Normal Negativemg /dL [facility] UA Auto SS RBC Ql (U) 0-3 graded/HPF Normal 0-3graded/ HPF [facility] UA Auto SS Specific gravity (U) [Rel density] 1.015 *NA* (09/07/23 8:55 PM) Invalid Interpretation Code 1.005 - 1.030 [facility] UA Auto SS Transitional cells Computer assisted (U) [#/Area] 0-2 graded/HPF Normal 0-2graded/ HPF [facility] UA Auto SS Urobilinogen (U) [Mass/Vol] Negative Normal Negativemg /dL [facility] UA Auto SS WBC Auto (Urine sed) [#/Area] 16-25 graded/HPF Invalid Interpretation Code 0-5graded/ HPF [facility] UA Auto SS URINALYSISOrdered By: Rodrigue ferrara on 09-07-2023 UA Spec Desc Catheter 6 (09/07/23 8:55 PM) Normal [facility] UA Auto SS Work Phone: Comment on above: Result Comment: Test results were corrected for specimen description. VANCOMYCIN:SUSC:PT:ISOLATE:O RDQN:MICOrdered By: Meghann Ham on 09-07-2023 Vancomycin REINALDO [Susc] 15,000 cfu/ml Staphylococcus epidermidis [facility] Vancomycin REINALDO [Susc]Ordered By: Meghann Ham on 09-07-2023 Staphylococcus epidermidis Staphylococcus epidermidis [facility] eGFRon 09-07-2023 eGFR 52 mL/min/1.73 m2 Low >=59 [facility] Comment on above: Order Comment: Order added by Discern Expert. Performed By: #### 2 [id number], [id number], [id number] ####[address] [place] [address] Alanine aminotransferase [En zymatic activity/volume] in Serum or PlasmaOrdered By: Maciej Rodriguez on 09-06-2023 ALT [Catalytic activity/Vol] 8 U/L Normal 7-52 [facility] Comment on above: Performed By: #### C MP, CK, HS TROP, CBC #### [facility] [address] [place] [address] Albumin [Mass/volume] in Ser um or Plasma by Bromocresol green (BCG) dye binding methoOrdered By: Maciej Rodriguez on 09-06-2023 Albumin BCG dye [Mass/Vol] 4.1 g/dL 3.5-5.7 [facility] Alkaline phosphatase [Enzyma tic activity/volume] in Serum or PlasmaOrdered By: Maciej Rodriguez on 09-06-2023 ALP [Catalytic activity/Vol] 84 U/L Normal 34-104 [facility] Comment on above: Performed By: #### C MP, CK, HS TROP, CBC #### [address] Amphetamine Screen Ql (U)Ord ered By: Maciej Rodriguez on 09-06-2023 Amphetamines Ql (U) Negative Negative [facility] Aspartate aminotransferase [ Enzymatic activity/volume] in Serum or PlasmaOrdered By: Maciej Rodriguez on 09-06-2023 AST [Catalytic activity/Vol] 18 U/L Normal 13-39 [facility] Comment on above: Performed By: #### C MP, CK, HS TROP, CBC #### [address] Automated basophil %Ordered By: Maciej Rodriguez on 09-06-2023 Basophils/100 WBC (Bld) 0.8 % Normal . [facility] Comment on above: Performed By: #### C MP, CK, HS TROP, CBC #### [address] Automated basophil countOrde red By: Maciej Rodriguez on 09-06-2023 Basophils (Bld) [#/Vol] 0.0 10*3/uL Normal 0.0-0.2 [facility] Comment on above: Result Comment: PERF ORMED BY: [place] [address] PATHOLOGIST AUDIO TECHNICIAN CORIE SILVA M.D. Performed By: #### C MP, CK, HS TROP, CBC #### [facility] [address] Automated blood monocyte cou ntOrdered By: Maciej Rodriguez on 09-06-2023 Monocytes (Bld) [#/Vol] 0.6 10*3/uL Normal 0.0-0.8 [facility] Comment on above: Performed By: #### C MP, CK, HS TROP, CBC #### [facility] [address] Automated eosinophil %Ordere d By: Maciej Rodriguez on 09-06-2023 Eosinophils/100 WBC (Bld) 3.1 % Normal . [facility] Comment on above: Performed By: #### C MP, CK, HS TROP, CBC #### [address] Automated eosinophil countOr dered By: Maciej Rodriguez on 09-06-2023 Eosinophils (Bld) [#/Vol] 0.2 10*3/uL Normal 0.0-0.45 [facility] Comment on above: Performed By: #### C MP, CK, HS TROP, CBC #### [address] Automated erythrocytes count in urine sediment (number/area)Ordered By: Maciej Rodriguez on 09-06-2023 RBC Auto (Urine sed) [#/Area] 3-4 [HPF] 0-4 [facility] Automated leukocytes count i n urine sediment (number/area)Ordered By: Maciej Rodriguez on 09-06-2023 WBC Auto (Urine sed) [#/Area] 3-4 [HPF] 0-4 [facility] Automated monocyte %Ordered By: Maciej oRdriguez on 09-06-2023 Monocytes/100 WBC (Bld) 10.9 % Normal . [facility] Comment on above: Performed By: #### C MP, CK, HS TROP, CBC #### [address] Automated neutrophil %Ordere d By: Maciej Rodriguez on 09-06-2023 Neutrophils/100 WBC (Bld) 56.7 % Normal . [facility] Comment on above: Performed By: #### C MP, CK, HS TROP, CBC #### [facility] [address] Automated urine color determ inationOrdered By: Maciej Rodriguez on 09-06-2023 Color (U) Yellow Normal Yellow [facility] Comment on above: Order Comment: Name Collection Type:: Clean-Voided Midstream Performed By: #### C MP, CK, HS TROP, CBC #### [facility] [address] [place] [address] Barbiturates [Presence] in U rine by Screen methodOrdered By: Maciej Rodriguez on 09-06-2023 Barbiturates Screen Ql (U) Negative Negative [facility] Benzodiazepines Screen Ql (U )Ordered By: Maciej Rodriguez on 09-06-2023 Benzodiazepines Ql (U) Negative Negative [facility] Benzoylecgonine [Presence] i n Urine by Screen methodOrdered By: Maciej Rodriguez on 09-06-2023 Benzoylecgonine Screen Ql (U) Negative Negative [facility] Bilirubin Test strip Ql (U)O rdered By: Maciej Rodriguez on 09-06-2023 Bilirubin Ql (U) Negative Negative [facility] Bilirubin.total [Mass/volume ] in Serum or PlasmaOrdered By: Maciej Rodriguez on 09-06-2023 Bilirubin [Mass/Vol] 0.5 mg/dL Normal 0.3-1.0 [facility] Comment on above: Performed By: #### C MP, CK, HS TROP, CBC #### [facility] [address] [place] [address] COVID CepheidOrdered By: Ml Rodriguez on 09-06-2023 SARS-CoV-2 (COVID-19) Ab IA Ql Negative Negative [facility] Comment on above: This is a duplicate [employer] Xpert Xpress CoV-2/Flu/RSV Plus RNA by RT-PCR result to be used for statistical tracking purpose only. SARS-CoV-2 (COVID-19) RNA NAOMIE+probe Ql (Unsp spec) [facility] COVID-19 / Flu A/B / RSV PCR on 09-06-2023 SARS-CoV-2 (COVID-19) RNA NAOMIE+probe Ql (Unsp spec) COVID-19 Cepheid Result Negative for SARS-CoV-2 RNA by RT-PCR Flu A Cepheid Result Negative for Flu A RNA by RT-PCR Flu B Cepheid Result Negative for Flu B RNA by RT-PCR RSV Cepheid Result Negative for RSV RNA by RT-PCR COVID19 Blank Space -- Reference: Negative COVID19 Blank Space -- Cepheid Disclaimer The [employer]ep[employer] Xpert Xpress CoV-2/Flu/RSV Plus has Cepheid Disclaimer not been FDA cleared or approved; this test has Cepheid Disclaimer been authorized by FDA under an EUA for use by Cepheid Disclaimer authorized laboratories; this test has been Cepheid Disclaimer authorized only for the simultaneous qualitative Cepheid Disclaimer detection and differentiation of nucleic acids from Cepheid Disclaimer SARS-CoV-2, influenza A, influenza B, and [employer]epheid Disclaimer respiratory syncytial virus (RSV), and not for any Cepheid Disclaimer other viruses or pathogens; and this test is only Cepheid Disclaimer authorized for the duration of the declaration that Cepheid Disclaimer circumstances exist justifying the authorization of Cepheid Disclaimer emergency use of in vitro diagnostic tests for Cepheid Disclaimer detection and/or diagnosis of COVID-19 under Cepheid Disclaimer Section 564(b)(1) of the Act, 21 U.S.C. 360bbb- Cepheid Disclaimer 3(b)(1), unless the authorization is terminated or Cepheid Disclaimer revoked sooner. PERFORMED BY: [facility] [place] [address] PATHOLOGIST AUDIO TECHNICIAN CORIE SILVA M.D. Normal [facility] Comment on above: Performed By: #### C MP, CK, HS TROP, CBC #### [facility] [address] head/brain wo conon 09-05 CT head/brain wo con [facility] [address] [place] [address] [place] [address] CT Scan Report Signed Patient: Maegan Dye MR#: [id number] : 1950 Acct:[id number] Age/Sex: 73 / F ADM Date: 09/06/23 Loc: ER Room: Type: [facility] ER Attending Dr: Copies to: Maciej Rodriguez DO Ordering Provider: Maciej Rodriguez DO Date of Service: 09/06/23 CT/CT head/brain wo con: f CT head/brain wo con 09/06/2023 2:16 PM SIGNS AND SYMPTOMS: Nausea, vomiting, diarrhea, confusion TECHNIQUE:Multi-detector CT axial slices of the brain were obtained without IV contrast. CT was performed with one or more of the following dose reduction techniques: Automated exposure control, adjustment of the mA and/or kV according to patient size, or use of iterative reconstruction technique. COMPARISON: 08/22/2023 FINDINGS: There is no shift of the midline structures, acute intracranial bleeding, mass effects, or evidence of acute ischemia. Atherosclerotic changes are noted in the intracranial segments of the internal carotid arteries. There is diffuse age-related cortical atrophy with periventricular white matter hypoattenuation The ventricular system is normal in size. The brainstem and the cerebellum are unremarkable. The visualized intraorbital contents, the visualized paranasal sinuses, and the infratemporal soft tissues show no acute abnormality. The osseous structures in the skull base and the calvarium show no abnormality. Degenerative changes are noted in the temporomandibular joints. CT/CT head/brain wo con IMPRESSION: No acute intracranial pathology. Chronic age-related neurodegenerative changes are noted, as above. Impression dictated by: Ángel Littlejohn M.D.09/06/2023 2:58 PM Dictation Location: [place] [address] Transcribed By: YUSEF 09/06/23 [id number] Dictated By: Ángel Littlejohn II, MD 09/06/23 1455 Signed By: 09/06/23 1458 Normal [facility] Calcium [Mass/volume] in Ser um or PlasmaOrdered By: Maciej Rodriguez on 09-06-2023 Calcium [Mass/Vol] 9.8 mg/dL Normal 8.6-10.3 [facility] Comment on above: Performed By: #### C MP, CK, HS TROP, CBC #### [facility] [address] Cannabinoids [Presence] in U rine by Screen methodOrdered By: Maciej Rodriguez on 09-06-2023 Cannabinoids Screen Ql (U) Negative Negative [facility] Comment on above: These are unconfirme d results and should not be used for legal purposes. Drug Cut-Off Concentration: AMPH 1000 ng/mL PHILL 200 ng/mL ROBERT 200 ng/mL COCM 300 ng/mL OP 300 ng/mL PCP 25 ng/mL THC 20 ng/mL Carbon dioxide, total [Moles /volume] in Serum or PlasmaOrdered By: Maciej Rodriguez on 09-06-2023 CO2 [Moles/Vol] 30.5 mmol/L Normal 21.0-31.0 [facility] Comment on above: Performed By: #### C MP, CK, HS TROP, CBC #### [facility] [address] [place] [address] Cepheid COVID PCR Negativeon 09-06-2023 SARS-CoV-2 (COVID-19) RNA NAOMIE+probe Ql (Unsp spec) Negative Normal Negative [facility] Comment on above: Result Comment: This is a duplicate [employer] Xpert Xpress CoV-2/Flu/RSV Plus RNA by RT-PCR result to be used for statistical tracking purpose only. PERFORMED BY: [place] [address] PATHOLOGIST AUDIO TECHNICIAN CORIE SILVA M.D. Performed By: #### C MP, CK, HS TROP, CBC #### [address] Chloride [Moles/volume] in S clarisa or PlasmaOrdered By: Maciej Rodriguez on 09-06-2023 Chloride [Moles/Vol] 97 mmol/L Low 98-107 [facility] Comment on above: Performed By: #### C MP, CK, HS TROP, CBC #### [address] Complete Blood Count Auto Di ffon 09-06-2023 Mean Corpuscular HGB Conc 32.4 g/dL Normal 32.0-35.0 [facility] Comment on above: Performed By: #### C MP, CK, HS TROP, CBC #### [address] Monocytes/100 WBC (Bld) 15.52 % Normal 0.00-20.00 [facility] Comment on above: Performed By: #### C MP, CK, HS TROP, CBC #### [address] NRBC% 0.1 /100{WBC} Normal 0-0.5 [facility] Comment on above: Performed By: #### C MP, CK, HS TROP, CBC #### [address] Comprehensive Metabolic Pane isauro 09-06-2023 Albumin [Mass/Vol] 4.1 g/dL Normal 3.5-5.7 [facility] Comment on above: Performed By: #### C MP, CK, HS TROP, CBC #### [address] Creatinine Clr Calc Pharmacy 31.85 Normal [facility] Comment on above: Result Comment: PERF ORMED BY: [place] [address] PATHOLOGIST AUDIO TECHNICIAN CORIE SILVA M.D. Performed By: #### C MP, CK, HS TROP, CBC #### [address] GFR/1.73 sq M.predicted MDRD (S/P/Bld) [Vol rate/Area] 42.104 mL/min/{1.73_m2} Normal [facility] Comment on above: Performed By: #### C MP, CK, HS TROP, CBC #### [facility] [address] Creatinine [Mass/volume] in Serum or PlasmaOrdered By: Maciej Rodriguez on 09-06-2023 Creatinine [Mass/Vol] 1.32 mg/dL High 0.60-1.20 [facility] Comment on above: Performed By: #### C MP, CK, HS TROP, CBC #### [facility] [address] [place] [address] [place] Dipstick and Microscopicon 0 09-06-2023 Appearance (U) Clear Normal Clear [facility] Comment on above: Order Comment: Name Collection Type:: Clean-Voided Midstream Performed By: #### C MP, CK, HS TROP, CBC #### [place] [address] [place] Bacteria,Urine 1+ High None Seen [facility] Comment on above: Order Comment: Name Collection Type:: Clean-Voided Midstream Performed By: #### C MP, CK, HS TROP, CBC #### [place] [address] [place] Bilirubin,Urine Negative Normal Negative [facility] Comment on above: Order Comment: Name Collection Type:: Clean-Voided Midstream Performed By: #### C MP, CK, HS TROP, CBC #### [place] [address] [place] Glucose Ql (U) Normal Normal Normal [facility] Comment on above: Order Comment: Name Collection Type:: Clean-Voided Midstream Performed By: #### C MP, CK, HS TROP, CBC #### [place] [address] [place] Hyaline Casts,Urine 0-8 Normal 0-8 [facility] Comment on above: Order Comment: Name Collection Type:: Clean-Voided Midstream Performed By: #### C MP, CK, HS TROP, CBC #### [place] [address] [place] Ketones Ql (U) Negative Normal Negative [facility] Comment on above: Order Comment: Name Collection Type:: Clean-Voided Midstream Performed By: #### C MP, CK, HS TROP, CBC #### [address] Leukocyte esterase Test strip Ql (U) 2+ High Negative [facility] Comment on above: Order Comment: Name Collection Type:: Clean-Voided Midstream Performed By: #### C MP, CK, HS TROP, CBC #### [address] Nitrite,Urine Negative Normal Negative [facility] Comment on above: Order Comment: Name Collection Type:: Clean-Voided Midstream Performed By: #### C MP, CK, HS TROP, CBC #### [address] Occult Blood,Urine Negative Normal Negative [facility] Comment on above: Order Comment: Name Collection Type:: Clean-Voided Midstream Result Comment: PERF ORMED BY: [place] [address] PATHOLOGIST AUDIO TECHNICIAN CORIE SILVA M.D. Performed By: #### C MP, CK, HS TROP, CBC #### [address] Protein,Urine Negative Normal Negative [facility] Comment on above: Order Comment: Name Collection Type:: Clean-Voided Midstream Performed By: #### C MP, CK, HS TROP, CBC #### [address] RBC,Urine 3-4 Normal 0-4 [facility] Comment on above: Order Comment: Name Collection Type:: Clean-Voided Midstream Performed By: #### C MP, CK, HS TROP, CBC #### [place] [address] [place] Specificy [place],Urine 1.011 Normal 1.001-1.03 0 [facility] Comment on above: Order Comment: Name Collection Type:: Clean-Voided Midstream Performed By: #### C MP, CK, HS TROP, CBC #### [address] Squamous Epithelial Cell,Urine 5-9 High 0-2 [facility] Comment on above: Order Comment: Name Collection Type:: Clean-Voided Midstream Performed By: #### C MP, CK, HS TROP, CBC #### [address] Urobilinogen,Urine Normal Normal Normal [facility] Comment on above: Order Comment: Name Collection Type:: Clean-Voided Midstream Performed By: #### C MP, CK, HS TROP, CBC #### [address] WBC,Urine 3-4 Normal 0-4 [facility] Comment on above: Order Comment: Name Collection Type:: Clean-Voided Midstream Performed By: #### C MP, CK, HS TROP, CBC #### [address] Yeast,Urine None Seen Normal None Seen [facility] Comment on above: Order Comment: Name Collection Type:: Clean-Voided Midstream Result Comment: PERF ORMED BY: [place] [address] PATHOLOGIST AUDIO TECHNICIAN CORIE SILVA M.D. Performed By: #### C MP, CK, HS TROP, CBC #### [address] Drug Screen,Urineon 09-06-19 24 Amphetamine Screen,Urine Negative Normal Negative [facility] Comment on above: Performed By: #### C MP, CK, HS TROP, CBC #### [address] Barbiturate Screen,Urine Negative Normal Negative [facility] Comment on above: Performed By: #### C MP, CK, HS TROP, CBC #### [address] Benzodiazepines Screen,Urine Negative Normal Negative [facility] Comment on above: Performed By: #### C MP, CK, HS TROP, CBC #### [address] Cannabinoid Screen,Urine Negative Normal Negative [facility] Comment on above: Result Comment: Thes e are unconfirmed results and should not be used for legal purposes. Drug Cut-Off Concentration: AMPH 1000 ng/mL PHILL 200 ng/mL ROBERT 200 ng/mL COCM 300 ng/mL OP 300 ng/mL PCP 25 ng/mL THC 20 ng/mL PERFORMED BY: [place] [address] PATHOLOGIST AUDIO TECHNICIAN CORIE SILVA M.D. Performed By: #### C MP, CK, HS TROP, CBC #### [address] Cocaine Screen,Urine Negative Normal Negative [facility] Comment on above: Performed By: #### C MP, CK, HS TROP, CBC #### [address] Opiate Screen,Urine Positive High Negative [facility] Comment on above: Performed By: #### C MP, CK, HS TROP, CBC #### [address] Phencyclidine Screen,Urine Negative Normal Negative [facility] Comment on above: Performed By: #### C MP, CK, HS TROP, CBC #### [address] Erythrocyte distribution wid th [Ratio] by Automated countOrdered By: Maciej Rodriguez on 09-06-2023 Erythrocyte distribution width (RBC) [Ratio] 12.8 % Normal 11.9-15.3 [facility] Comment on above: Performed By: #### C MP, CK, HS TROP, CBC #### [address] Erythrocytes [#/volume] in B lood by Automated countOrdered By: Maciej Rodriguez on 09-06-2023 RBC (Bld) [#/Vol] 4.73 10*6/uL Normal 3.60-5.00 [facility] Comment on above: Performed By: #### C MP, CK, HS TROP, CBC #### [address] Ethanol [Mass/volume] in Ser um or PlasmaOrdered By: Maciej Rodriguez on 09-06-2023 Ethanol [Mass/Vol] mg/dL Normal [facility] Comment on above: Performed By: #### C MP, CK, HS TROP, CBC #### [facility] [address] Ethanol [Mass/Vol] TNP [facility] Comment on above: Test not performed Ethyl Alcohol Profileon 08-24 Percent Ethanol Not performed Normal [facility] Comment on above: Result Comment: PERF ORMED BY: [facility] [address] [place] [address] PATHOLOGIST AUDIO TECHNICIAN CORIE SILVA M.D. Performed By: #### C MP, CK, HS TROP, CBC #### [facility] [address] Glucose [Mass/volume] in Ser um or PlasmaOrdered By: Maciej Rodriguez on 09-06-2023 Glucose [Mass/Vol] 115 mg/dL High 70-100 [facility] Comment on above: ADA recommended refe rence rangeRandom Glucose Reference Range is dependent on time and content of last meal. Glucose of more than 200 mg/dL in a nonstressed, ambulatory subject supports the diagnosis of Diabetes Mellitus. Result Comment: [place] om Glucose Reference Range is dependent on time and content of last meal. Glucose of more than 200 mg/dL in a nonstressed, ambulatory subject supports the diagnosis of Diabetes Mellitus. ADA recommended reference range Performed By: #### C MP, CK, HS TROP, CBC #### [facility] [address] [place] [id number] [place] Hematocrit [Volume Fraction] of Blood by Automated countOrdered By: Maciej Rodriguez on 09-06-2023 Hematocrit (Bld) [Volume fraction] 41.2 % Normal 34.0-46.4 [facility] Comment on above: Performed By: #### C MP, CK, HS TROP, CBC #### [facility] [address] [place] [address] [place] Hemoglobin [Mass/volume] in BloodOrdered By: Maciej Rodriguez on 09-06-2023 Hemoglobin (Bld) [Mass/Vol] 13.3 g/dL Normal 11.8-15.4 [facility] Comment on above: Performed By: #### C MP, CK, HS TROP, CBC #### [facility] [address] Ketones Auto test strip (U) [Mass/Vol]Ordered By: Maciej Rodriguez on 09-06-2023 Ketones (U) [Mass/Vol] Negative Negative [facility] - UrinalysisOrder ed By: Maciej Rodriguez on 09-06-2023 Hyaline casts LM Ql (Urine sed) 0-8 [LPF] 0-8 [facility] Leukocytes [#/volume] correc kenyatta for nucleated erythrocytes in Blood by Automated counOrdered By: Maciej Rodriguez on 09-06-2023 WBC corrected for nucl RBC Auto (Bld) [#/Vol] 5.9 10*3/uL 3.8-11.6 [facility] Leukocytes [#/volume] in Blo od by Automated countOrdered By: Maciej Rodriguez on 09-06-2023 WBC (Bld) [#/Vol] 5.9 10*3/uL Normal 3.8-11.6 [facility] Comment on above: Performed By: #### C MP, CK, HS TROP, CBC #### [facility] [address] [place] [address] [place] Lymphocytes [#/volume] in Bl ood by Automated countOrdered By: Maciej Rodriguez on 09-06-2023 Lymphocytes (Bld) [#/Vol] 1.7 10*3/uL Normal 1.00-4.8 [facility] Comment on above: Performed By: #### C MP, CK, HS TROP, CBC #### [facility] [address] [place] [address] [place] Lymphocytes/100 leukocytes i n Blood by Automated countOrdered By: Maciej Rodriguez on 09-06-2023 Lymphocytes/100 WBC (Bld) 28.5 % Normal . [facility] Comment on above: Performed By: #### C MP, CK, HS TROP, CBC #### [facility] [address] MCH [Entitic mass] by Automa kenyatta countOrdered By: Maciej Rodriguez on 09-06-2023 MCH (RBC) [Entitic mass] 28.2 pg Normal 24.7-34.3 [facility] Comment on above: Performed By: #### C MP, CK, HS TROP, CBC #### [facility] [address] MCHC Auto (RBC) [Mass/Vol]Or dered By: Maciej Rodriguez on 09-06-2023 MCHC (RBC) [Mass/Vol] 32.4 g/dL 32.0-35.0 [facility] MCV [Entitic volume] by Auto mated countOrdered By: Maciej Rodriguez on 09-06-2023 MCV (RBC) [Entitic vol] 87.1 fL Normal 80-100 [facility] Comment on above: Performed By: #### C MP, CK, HS TROP, CBC #### [facility] [address] [place] [address] Monocyte distribution width [Entitic volume] in Blood by AutomatedOrdered By: Maciej Rodriguez on 09-06-2023 Monocyte distribution width Auto (Bld) [Entitic vol] 15.52 % 0.00-20.00 [facility] Neutrophils [#/volume] in Bl ood by Automated countOrdered By: Maciej Rodriguez on 09-06-2023 Neutrophils (Bld) [#/Vol] 3.3 10*3/uL Normal 1.8-7.7 [facility] Comment on above: Performed By: #### C MP, CK, HS TROP, CBC #### [facility] [address] [place] [address] Nitrite Test strip Ql (U)Ord ered By: Maciej Rodriguez on 09-06-2023 Nitrite Ql (U) Negative Negative [facility] No Panel InformationOrdered By: Maciej Rodriguez on 09-06-2023 Estimated GFR (CKD-EPI) 42.104 mL/Min [facility] Creatinine Clearance (Chem 31.85 [facility] Nucleated erythrocytes [Pres ence] in Blood by Automated countOrdered By: Maciej Rodriguez on 09-06-2023 Nucleated RBC Auto Ql (Bld) 0.1 /100{WBC} 0-0.5 [facility] Opiates [Presence] in Urine by Screen methodOrdered By: Maciej Rodriguez on 09-06-2023 Opiates Screen Ql (U) Positive Negative [facility] Phencyclidine Screen Ql (U)O rdered By: Maciej Rodriguez on 09-06-2023 Phencyclidine Ql (U) Negative Negative [facility] Platelet mean volume [Entiti c volume] in Blood by Automated countOrdered By: Maciej Rodriguez on 09-06-2023 Platelet mean volume (Bld) [Entitic vol] 7.4 fL Normal 6.3-10.7 [facility] Comment on above: Performed By: #### C MP, CK, HS TROP, CBC #### [facility] [address] Platelets [#/volume] in Bloo d by Automated countOrdered By: Maciej Rodriguez on 09-06-2023 Platelets (Bld) [#/Vol] 277 10*3/uL Normal 150-450 [facility] Comment on above: Performed By: #### C MP, CK, HS TROP, CBC #### [facility] [address] [place] [address] Potassium [Moles/volume] in Serum or PlasmaOrdered By: Maciej Rodriguez on 09-06-2023 Potassium [Moles/Vol] 4.5 mmol/L Normal 3.5-5.1 [facility] Comment on above: Performed By: #### C MP, CK, HS TROP, CBC #### [facility] [address] [place] [address] Protein Auto test strip (U) [Mass/Vol]Ordered By: Maciej Rodriguez on 09-06-2023 Protein (U) [Mass/Vol] Negative Negative [facility] Protein [Mass/volume] in Ser um or PlasmaOrdered By: Maciej Rodriguez on 09-06-2023 Protein [Mass/Vol] 7.5 g/dL Normal 6.4-8.9 [facility] Comment on above: Performed By: #### C MP, CK, HS TROP, CBC #### [address] Serum globulin measurement b y calculation (mass/volume)Ordered By: Maciej Rodriguez on 09-06-2023 Globulin (S) [Mass/Vol] 3.4 g/dL [facility] Comment on above: Performed By: #### C MP, CK, HS TROP, CBC #### [address] Serum or plasma albumin/glob ulin mass ratioOrdered By: Maciej Rodriguez on 09-06-2023 Albumin/Globulin [Mass ratio] 1.2 {ratio} [facility] Comment on above: Performed By: #### C MP, CK, HS TROP, CBC #### [address] Serum or plasma anion gap de terminationOrdered By: Maciej Rodriguez on 09-06-2023 Anion gap [Moles/Vol] 11.0 mmol/L Normal 6.0-15.0 [facility] Comment on above: Performed By: #### C MP, CK, HS TROP, CBC #### [address] Sodium [Moles/volume] in Ser um or PlasmaOrdered By: Maciej Rodriguez on 09-06-2023 Sodium [Moles/Vol] 134 mmol/L Low 136-145 [facility] Comment on above: Performed By: #### C MP, CK, HS TROP, CBC #### [address] Specific gravity Auto test s trip (U) [Rel density]Ordered By: Maciej Rodriguez on 09-06-2023 Specific gravity (U) [Rel density] 1.011 1.001-1.03 0 [facility] Squamous epithelial cells de tection in urine sediment by light microscopyOrdered By: Maciej Rodriguez on 09-06-2023 Epithelial cells.squamous LM Ql (Urine sed) 5-9 [HPF] 0-2 [facility] Troponin I High Sensitivityo n 09-06-2023 Troponin I High Sensitivity 2.7 pg/mL Normal 0.0-15.0 [facility] Comment on above: Result Comment: PERF ORMED BY: [place] [address] PATHOLOGIST AUDIO TECHNICIAN CORIE SILVA M.D. Performed By: #### C MP, CK, HS TROP, CBC #### [facility] [address] Troponin I.cardiac [Mass/vol ume] in Serum or Plasma by Detection limit <= 0.01 ng/Ordered By: Maciej Rodriguez on 09-06-2023 Troponin I.cardiac DL <= 0.01 ng/mL [Mass/Vol] 2.7 pg/mL 0.0-15.0 [facility] Urea nitrogen [Mass/volume] in Serum or PlasmaOrdered By: Maciej Rodriguez on 09-06-2023 Urea nitrogen [Mass/Vol] 18 mg/dL Normal 7-25 [facility] Comment on above: Performed By: #### C MP, CK, HS TROP, CBC #### [facility] [address] Urine bacteria detection by automated methodOrdered By: Maciej Rodriguez on 09-06-2023 Bacteria Auto Ql (U) 1+ None Seen [facility] Urine clarity by refractomet ry automatedOrdered By: Maciej Rodriguez on 09-06-2023 Clarity Refractometry automated (U) Clear Clear [facility] Urine glucose measurement by automated test strip (mass/volume)Ordered By: Maciej Rodriguez on 09-06-2023 Glucose Auto test strip (U) [Mass/Vol] Normal mg/dL Normal [facility] Urine hemoglobin detection b y automated test stripOrdered By: Maciej Rodriguez on 09-06-2023 Hemoglobin Auto test strip Ql (U) Negative Negative [facility] Urine leukocyte esterase det ection by automated test stripOrdered By: Maciej Rodriguez on 09-06-2023 Leukocyte esterase Auto test strip Ql (U) 2+ Negative [facility] Urine pH measurement by auto mated test stripOrdered By: Maciej Rodriguez on 09-06-2023 pH (U) 6.5 [pH] Normal 5.0-9.0 [facility] Comment on above: Order Comment: Name Collection Type:: Clean-Voided Midstream Performed By: #### C MP, CK, HS TROP, CBC #### [facility] [address] [place] [address] Urobilinogen Auto test strip (U) [Mass/Vol]Ordered By: Maciej Rodriguez on 09-06-2023 Urobilinogen (U) [Mass/Vol] Normal mg/dL Normal [facility] XR chest 2V*on 09-06-2023 XR chest 2V* [facility] [place] [address] [place] [address] XRay Report Signed Patient: Maegan Dye MR#: [id number] : 1950 Acct:[id number] Age/Sex: 73 / F ADM Date: 09/06/23 Loc: ER Room: Type: [facility] ER Attending Dr: Copies to: Maciej Rodriguez DO Ordering Provider: Maciej Rodriguez DO Date of Service: 09/06/23 XR/XR chest 2V*: Psychiatric Symptoms XR chest 2V* 09/06/2023 2:16 PM SIGNS AND SYMPTOMS: Nausea, vomiting, diarrhea PROTOCOL: Frontal and lateral graphs of the chest COMPARISON: 07/05/2023 FINDINGS: The trachea is midline. The heart and mediastinal structures are within normal limits. Chronic interstitial findings are redemonstrated. No focal consolidation. The bony thorax is intact. Degenerative changes are present in the shoulders and thoracic spine. XR/XR chest 2V* IMPRESSION: No acute cardiopulmonary pathology. Chronic findings are noted, as above. Impression dictated by: Ángel Littlejohn M.D.09/06/2023 3:17 PM Dictation Location: [place] [address] Transcribed By: YUSEF 09/06/23 1517 Dictated By: Ángel Littlejohn II, MD 09/06/231515 Signed By: 09/06/23 151 Normal [facility] Yeast detection in urine sed iment by light microscopyOrdered By: Maciej Rodriguez on 09-06-2023 Yeast LM Ql (Urine sed) None seen [HPF] None Seen [facility] Cholesterol [Mass/volume] in Serum or PlasmaOrdered By: Julian Arechiga on 08-28-2023 Cholesterol [Mass/Vol] 151 mg/dL Normal 140-200 [facility] Comment on above: Chol less than 200 m g/dl low riskChol 201-239 mg/dl borderline riskChol 240 mg/dl and greater high risk Result Comment: Chol less than 200 mg/dl low risk Chol 201-239 mg/dl borderline risk Chol 240 mg/dl and greater high risk Performed By: #### T SH3 wRFLX, [id number], LIPID #### [facility] [address] [place] [address] [place] Cholesterol in LDL Calc [Mas s/Vol]Ordered By: Julian Arechiga on 08-28-2023 Cholesterol in LDL [Mass/Vol] 94 mg/dL 0-100 [facility] Comment on above: LDL ATP III CLASSIFI CATIONLDL less than 100 mg/dL OptimalLDL 100-129 mg/dL Near or above optimalLDL 130-159 mg/dL Borderline highLDL 160-189 mg/dL HighLDL greater than 189 mg/dL Very high Cholesterol in VLDL Calc [Ma ss/Vol]Ordered By: Julian Arechiga on 08-28-2023 Cholesterol in VLDL [Mass/Vol] 15 mg/dL [facility] Lipid Panelon 08-28-2023 LDL Cholesterol,Calculated 94 mg/dL Normal 0-100 [facility] Comment on above: Result Comment: LDL ATP III CLASSIFICATION LDL less than 100 mg/dL Optimal LDL 100-129 mg/dL Near or above optimal LDL 130-159 mg/dL Borderline high LDL 160-189 mg/dL High LDL greater than 189 mg/dL Very high Performed By: #### T SH3 wRFLX, [id number], LIPID #### [facility] [address] [place] [address] [place] Triglyceride w/Reflex 79 mg/dL Normal 0-149 [facility] Comment on above: Result Comment: TRIG ATP III CLASSIFICATION TRIG less than 150 mg/dL Normal TRIG 150-199 mg/dL Borderline high TRIG 200-500 mg/dL High TRIG greater than 500 mg/dL Very high Standard traceable to the Center for Disease Conrtrol and Prevention (CDC) test method. Performed By: #### T SH3 wRFLX, [id number], LIPID #### [facility] [address] VLDL CHOLESTEROL 15 mg/dL Normal [facility] Comment on above: Performed By: #### T SH3 wRFLX, [id number], LIPID #### [facility] [address] [place] [address] Serum or plasma high density lipoprotein (HDL) cholesterol measurementOrdered By: Julian Arechiga on 08-28-2023 Cholesterol in HDL [Mass/Vol] 41 mg/dL Normal 23-92 [facility] Comment on above: HDL CHOL ATP-III CLA SSIFICATION Cardiovascular RiskHDL > or equal to 60 mg/dL LOWHDL < 40 mg/dL HIGH Result Comment: HDL CHOL ATP-III CLASSIFICATION Cardiovascular Risk HDL > or equal to 60 mg/dL LOW HDL < 40 mg/dL HIGH Performed By: #### T SH3 wRFLX, [id number], LIPID #### [facility] [address] [place] [address] Serum or plasma total choles terol/high density lipoprotein (HDL) cholesterol mass ratOrdered By: Julian Arechiga on 08-28-2023 Cholesterol.total/Chol esterol in HDL [Mass ratio] 3.7 {ratio} Normal <5.0 [facility] Comment on above: Performed By: #### T SH3 wRFLX, [id number], LIPID #### [facility] [address] [place] [address] Thyroid Stim Hormone w/Rflxo n 08-28-2023 Thyroid Stim Hormone w/Rflx 2.83 u[iU]/mL Normal 0.45-5.33 [facility] Comment on above: Performed By: #### T SH3 wRFLX, [id number], LIPID #### [facility] [address] [place] [address] Thyrotropin [Units/volume] i n Serum or PlasmaOrdered By: Julian Arechiga on 08-28-2023 TSH Qn 2.83 m[IU]/L 0.45-5.33 [facility] Triglyceride [Mass/volume] i n Serum or PlasmaOrdered By: Julian Arechiga on 08-28-2023 Triglyceride [Mass/Vol] 79 mg/dL 0-149 [facility] Comment on above: TRIG ATP III CLASSIF ICATIONTRIG less than 150 mg/dL NormalTRIG 150-199 mg/dL Borderline highTRIG 200-500 mg/dL High TRIG greater than 500 mg/dL Very highStandard traceable to the Center for Disease Conrtrol and Prevention (CDC) test method. Vitamin D 25 Hydroxy Totalon 08-28-2023 Vitamin D 25 Hydroxy Total 47.6 ng/mL Normal 30-100 [facility] Comment on above: Result Comment: GAGE MIN D STATUS 25(OH)VITAMIN D RANGE (ng/mL) Deficient <20 Insufficient 20 to <30 Sufficient 30 to 100 Reference: Catalina Larry, Omega CABRERA, et al. Evaluation,treatment, and prevention of vitamin D deficiency; an Endocrine Society clinical practice guideline. JCEM. 2010; 96(7):1911-. PERFORMED BY: [place] [address] PATHOLOGIST AUDIO TECHNICIAN CORIE SILVA M.D. Performed By: #### T SH3 wRFLX, [id number], LIPID #### [address] Vitamin D+Metabolites [Mass/ volume] in Serum or PlasmaOrdered By: Julian Arechiga on 08-28-2023 Vitamin D+Metabolites [Mass/Vol] 47.6 ng/mL 30-100 [facility] Comment on above: VITAMIN D STATUS 25( [place])VITAMIN D RANGE (ng/mL) Deficient <20 Insufficient 20 to <30Sufficient 30 to 100Reference: Catalina Larry, Omega CABRERA, et al. Evaluation,treatment, and prevention of vitamin D deficiency; an Endocrine Society clinical practice guideline. JCEM. 2010; 96(7):1911-30. CBC w/ Auto Diffon 4 Basophils/100 WBC (Bld) 0.8 % Normal 0.0-2.0 [facility] Comment on above: Performed By: #### 2 [id number], [id number], [id number] ####[address] [address] Basophils/Leukocytes Auto (Bld) [Pure # fraction] 0.1 E9/L Normal 0.0-0.2 [facility] Comment on above: Performed By: #### 2 852159, [id number], [id number] ####[address] [address] Eosinophils (Bld) [#/Vol] 0.2 E9/L Normal 0.0-0.5 [facility] Comment on above: Performed By: #### 2 637080, [id number], [id number] ####[address] [address] Eosinophils/100 WBC (Bld) 3.2 % Normal 0.0-8.0 [facility] Comment on above: Performed By: #### 2 194479, [id number], [id number] ####[address] [address] Erythrocyte distribution width (RBC) [Ratio] 13.2 % Normal 10.9-14.2 [facility] Comment on above: Performed By: #### 2 164498, [id number], [id number] ####[address] [address] Hematocrit (Bld) [Volume fraction] 40.9 % Normal 34.0-46.0 [facility] Comment on above: Performed By: #### 2 312135, [id number], [id number] ####[address] [address] Hemoglobin (Bld) [Mass/Vol] 13.2 g/dL Normal 12.0-16.0 [facility] Comment on above: Performed By: #### 2 195442, [id number], [id number] ####[address] [address] Lymphocytes (Bld) [#/Vol] 1.3 E9/L Normal 1.0-4.0 [facility] Comment on above: Performed By: #### 2 398351, [id number], [id number] ####[address] [address] Lymphocytes/100 WBC (Bld) 19.7 % Normal 14.0-50.0 [facility] Comment on above: Performed By: #### 2 664320, [id number], [id number] ####[address] [address] MCH (RBC) [Entitic mass] 28.3 pg Normal 27.0-34.0 [facility] Comment on above: Performed By: #### 2 287744, [id number], [id number] ####[address] [address] MCHC (RBC) [Mass/Vol] 32.3 g/dL Normal 31.4-36.0 [facility] Comment on above: Performed By: #### 2 788410, [id number], 8425279 ####[address] [address] MCV (RBC) [Entitic vol] 87.8 fL Normal 80.0-100.0 [facility] Comment on above: Performed By: #### 2 227773, [id number], [id number] ####[address] [address] Monocytes (Bld) [#/Vol] 0.6 E9/L Normal 0.2-1.0 [facility] Comment on above: Performed By: #### 2 925066, [id number], 0760251 ####[address] [address] Neutrophils (Bld) [#/Vol] 4.4 E9/L Normal 2.0-7.5 [facility] Comment on above: Performed By: #### 2 602790, [id number], 0597703 ####[address] [address] Neutrophils/100 WBC (Bld) 67.4 % Normal 36.0-75.0 [facility] Comment on above: Performed By: #### 2 827453, [id number], [id number] ####[facility] [address] [place] [address] Platelet 236.0 E9/L Normal 150.0-500. 0 [facility] Comment on above: Performed By: #### 2 001701, [id number], [id number] ####[address] [address] Platelet mean volume (Bld) [Entitic vol] 7.3 fL Normal 6.4-10.8 [facility] Comment on above: Performed By: #### 2 679284, [id number], 1243451 ####[address] [address] RBC (Bld) [#/Vol] 4.7 E12/L Normal 4.3-5.9 [facility] Comment on above: Performed By: #### 2 853003, [id number], 4651019 ####[address] [address] WBC corrected for nucl RBC Auto (Bld) [#/Vol] 6.6 E9/L Normal 4.0-11.0 [facility] Comment on above: Performed By: #### 2 916487, [id number], [id number] ####[address] [address] CHEMISTRYOrdered By: SYSTEM SYSTEM on 08-27-2023 Albumin [Mass/Vol] 4.1 g/dL Normal 3.3 - 5.0 gm/dL Remisol Chem Albumin/Globulin [Mass ratio] 1.4 {ratio} Normal 1.1 - 2.2 Remisol Chem ALP [Catalytic activity/Vol] 77 [iU]/d Normal 21 - 98 Int._Unit/ L Remisol Chem ALT No additional P-5'-P [Catalytic activity/Vol] 10 [iU]/d Normal 6 - 46 Int._Unit/ L [facility] Anion gap [Moles/Vol] 11 mmol/L Normal 6 - 16 mEq/L [facility] Chem AST [Catalytic activity/Vol] 23 [iU]/d Normal 5 - 43 Int._Unit/ L [facility] Bilirubin [Mass/Vol] 1.0 mg/dL Normal 0.0 - 1 .1 mg/dL Rem[facility] Chem Calcium [Mass/Vol] 9.2 mg/dL Normal 8.9 - 11. 1 mg/dL [facility] Chloride [Moles/Vol] 104 mmol/L Normal 101 - 1 11 mmol/L [facility] CO2 [Moles/Vol] 28 mmol/L Normal 21 - 31 mmol/L [facility] Creatinine [Mass/Vol] 1.1 mg/dL Normal 0.5 - 1.3 mg/dL [facility] eGFR 52 mL/min/1.73 m2 Low >=59mL/min /1.73 m2 [facility] Ethanol Lvl mg/dL Normal <=11mg/dL [facility] Globulin (S) [Mass/Vol] 3.0 g/dL Normal 1.4 - 4.0 gm/dL [facility] Glucose [Mass/Vol] 116 mg/dL Normal 55 - 199 mg/dL [facility] Potassium [Moles/Vol] 3.4 mmol/L Low 3.5 - 5.3 mmol/L [facility] Protein [Mass/Vol] 7.1 g/dL Normal 6.0 - 7.8 gm/dL [facility] Sodium [Moles/Vol] 140 mmol/L Normal 135 - 145 mmol/L [facility] Urea nitrogen [Mass/Vol] 10 mg/dL Normal 5 - 21 mg/dL [facility] Urea nitrogen/Creatinine [Mass ratio] 9 mg/mg Low 10 - 20 [facility] Amphetamines Screen method >1000 ng/mL Ql (U) NEGATIVE 8 (08/27/23 8:49 AM) Normal NEGATIVE [facility] Comment on above: Interpretive Data: N egative Cutoff: <1000 ng/mL Barbiturates Screen Ql (U) NEGATIVE 9 (08/27/23 8:49 AM) Normal NEGATIVE [facility] Comment on above: Interpretive Data: N egative Cutoff: <200 ng/mL Benzodiazepines Ql (U) NEGATIVE 1 (08/27/23 8:49 AM) Normal NEGATIVE [facility] Comment on above: Interpretive Data: N egative Cutoff: <200 ng/mL Cannabinoids Screen Ql (U) NEGATIVE 7 (08/27/23 8:49 AM) Normal NEGATIVE [facility] Comment on above: Interpretive Data: N egative Cutoff: <50 ng/mL Cocaine Ql (U) NEGATIVE 2 (08/27/23 8:49 AM) Normal NEGATIVE [facility] Comment on above: Interpretive Data: N egative Cutoff: <300 ng/mL Opiates Screen Ql (U) POSITIVE 4, 5 *ABN* (08/27/23 8:49 AM) Invalid Interpretation Code NEGATIVE [facility] Comment on above: Result Comment: Resu lt Verified by Repeat Analysis Unconfirmed by an Alternate Method No Confirmation Requested by Physician Result called to Mary Lou (ER) by SW at 1018 Interpretive Data: N egative Cutoff: <300 ng/mL Phencyclidine Screen method >25 ng/mL Ql (U) NEGATIVE 6 (08/27/23 8:49 AM) Normal NEGATIVE [facility] Comment on above: Interpretive Data: N egative Cutoff: <25 ng/mL These drug screen results are to be used for medical (i.e., treatment) purposes only. Unconfirmed drug screening results must not be used for non-medical purposes (e.g., employment testing, legal testing). U Fentanyl NEGATIVE 10 (08/27/23 8:49 AM) Normal NEGATIVE [facility] Comment on above: Interpretive Data: N egative Cutoff: <5 ng/mL These drug screen results are to be used for medical (i.e., treatment) purposes only. Unconfirmed drug screening results must not be used for non-medical purposes (e.g., employment testing, legal testing). CMPon 08-27-2023 Albumin [Mass/Vol] 4.1 g/dL Normal 3.3-5.0 [facility] Comment on above: Performed By: #### 2 [id number], [id number], [id number] ####[facility] [address] [place] [address] Albumin/Globulin (S) [Mass conc ratio] 1.4 Normal 1.1-2.2 [facility] Comment on above: Performed By: #### 2 105324, [id number], [id number] ####[facility] [address] [place] [address] ALP [Catalytic activity/Vol] 77 Int._Unit/L Normal 21-98 [facility] Comment on above: Performed By: #### 2 839527, [id number], [id number] ####[facility] [address] [facility] [address] ALT No additional P-5'-P [Catalytic activity/Vol] 10 Int._Unit/L Normal 6-46 [facility] Comment on above: Performed By: #### 2 592720, [id number], [id number] ####[place] [address] [place] [address] Anion gap [Moles/Vol] 11 mmol/L Normal 6-16 [facility] Comment on above: Performed By: #### 2 425680, [id number], [id number] ####[facility] [address] [place] [address] AST [Catalytic activity/Vol] 23 Int._Unit/L Normal 5-43 [facility] Comment on above: Performed By: #### 2 712628, [id number], 8148010 ####[facility] [address] [place] [address] Bilirubin [Mass/Vol] 1.0 mg/dL Normal 0.0-1.1 [facility] Comment on above: Performed By: #### 2 634889, [id number], [id number] ####[facility] [address] [place] [address] Calcium [Mass/Vol] 9.2 mg/dL Normal 8.9-11.1 [facility] Comment on above: Performed By: #### 2 971445, [id number], 8747752 ####[facility] [address] [place] [address] Chloride [Moles/Vol] 104 mmol/L Normal 101-111 [facility] Comment on above: Performed By: #### 2 807301, 80477756, 5112081 ####[facility] [address] [place] [address] CO2 [Moles/Vol] 28 mmol/L Normal 21-31 [facility] Comment on above: Performed By: #### 2 755663, [id number], 4433102 ####[facility] [address] [place] [address] Creatinine [Mass/Vol] 1.1 mg/dL Normal 0.5-1.3 [facility] Comment on above: Performed By: #### 2 747668, [id number], 5867793 ####[address] [address] Globulin (S) [Mass/Vol] 3.0 g/dL Normal 1.4-4.0 [facility] Comment on above: Performed By: #### 2 788518, [id number], 7301111 ####[facility] [address] [place] [address] Glucose [Mass/Vol] 116 mg/dL Normal 55-199 [facility] Comment on above: Performed By: #### 2 739179, [id number], 5787058 ####[facility] [address] [place] [address] Potassium [Moles/Vol] 3.4 mmol/L Low 3.5-5.3 [facility] Comment on above: Performed By: #### 2 826391, 33026418, 2742494 ####[facility] [address] [place] [address] Protein [Mass/Vol] 7.1 g/dL Normal 6.0-7.8 [facility] Comment on above: Performed By: #### 2 485034, 58002507, 4102432 ####[facility] [address] [place] [address] Sodium [Moles/Vol] 140 mmol/L Normal 135-145 [facility] Comment on above: Performed By: #### 2 429934, 82185382, 5783831 ####[facility] [address] [place] [address] Urea nitrogen [Mass/Vol] 10 mg/dL Normal 5-21 [facility] Comment on above: Performed By: #### 2 883525, 68502176, 4171169 ####[facility] [address] [place] [address] Urea nitrogen/Creatinine [Mass ratio] 9 No Units Low 10-20 [facility] Comment on above: Performed By: #### 2 358131, 84723716, 3413375 ####[facility] [address] [place] [address] Consent for Treatmenton Consent for Treatment [id number] Normal [facility] ED Clinical Summaryon 2023 ED Clinical Summary Normal [facility] ED Note-Physicianon 08-27-19 ED Note-Physician Normal [facility] Comment on above: Result Comment: Elec tronically Signed By: Rodrigue John PA-C\.br\Date and Time Signed: 08/27/23 11:50 EDT\.br\Electronically Co-Signed By: Johny Willson DO\.br\Date and Time Co-Signed: 08/27/23 13:24 EDT ED Patient Education Noteon 08-27-2023 ED Patient Education Note Normal [facility] ED Patient Summaryon 024 ED Patient Summary Normal [facility] Ethanolon 08-27-2023 Ethanol Lvl <10 Normal <=11 [facility] Comment on above: Performed By: #### 2 011040 ####[facility] [address] [place] [address] HEMATOLOGYOrdered By: SYSTEM SYSTEM on 08-27-2023 Basophils/100 WBC (Bld) 0.8 % Normal 0.0 - 2.0 % [facility] Basophils/Leukocytes Auto (Bld) [Pure # fraction] 0.1 E9/L Normal 0.0 - 0.2 E9/L [facility] Eosinophils (Bld) [#/Vol] 0.2 E9/L Normal 0.0 - 0.5 E9/L [facility] Eosinophils/100 WBC (Bld) 3.2 % Normal 0.0 - 8.0 % [facility] Erythrocyte distribution width (RBC) [Ratio] 13.2 % Normal 10.9 - 14.2 % [facility] Hematocrit (Bld) [Volume fraction] 40.9 % Normal 34.0 - 46.0 % [facility] Hemoglobin (Bld) [Mass/Vol] 13.2 g/dL Normal 12.0 - 16.0 gm/dL [facility] Lymphocytes (Bld) [#/Vol] 1.3 E9/L Normal 1.0 - 4.0 E9/L [facility] Lymphocytes/100 WBC (Bld) 19.7 % Normal 14.0 - 50.0 % [facility] MCH (RBC) [Entitic mass] 28.3 pg Normal 27.0 - 34.0 pg [facility] MCHC (RBC) [Mass/Vol] 32.3 g/dL Normal 31.4 - 36.0 gm/dL [facility] MCV (RBC) [Entitic vol] 87.8 fL Normal 80.0 - 100.0 fL [facility] Monocytes (Bld) [#/Vol] 0.6 E9/L Normal 0.2 - 1.0 E9/L [facility] Monocytes/100 WBC (Bld) 8.9 % Normal 4.0 - 14.0 % [facility] Neutrophils (Bld) [#/Vol] 4.4 E9/L Normal 2.0 - 7.5 E9/L [facility] Neutrophils/100 WBC (Bld) 67.4 % Normal 36.0 - 75.0 % [facility] Platelet 236.0 E9/L Normal 150.0 - 500.0 E9/L [facility] Platelet mean volume (Bld) [Entitic vol] 7.3 fL Normal 6.4 - 10.8 fL [facility] RBC (Bld) [#/Vol] 4.7 E12/L Normal 4.3 - 5.9 E12/L [facility] WBC corrected for nucl RBC Auto (Bld) [#/Vol] 6.6 E9/L Normal 4.0 - 11.0 E9/L [facility] Outside Recordson 08-27-2023 Outside Records [id number]#[id number] Normal [facility] Transfer Documentson 024 Transfer Documents [id number]#[id number] Normal [facility] U Drug Screenon 08-27-2023 Amphetamines Screen method >1000 ng/mL Ql (U) Negative Normal NEGATIVE [facility] Comment on above: Result Comment: Nega tive Cutoff: <1000 ng/mL Performed By: #### 2 103609 ####[facility] [address] [place] [address] Barbiturates Screen Ql (U) Negative Normal NEGATIVE [facility] Comment on above: Result Comment: Nega tive Cutoff: <200 ng/mL Performed By: #### 2 227788 ####[facility] [address] [place] [address] Benzodiazepines Ql (U) Negative Normal NEGATIVE [facility] Comment on above: Result Comment: Nega tive Cutoff: <200 ng/mL Performed By: #### 2 012436 ####[facility] [address] [place] [address] Cannabinoids Screen Ql (U) Negative Normal NEGATIVE [facility] Comment on above: Result Comment: Nega tive Cutoff: <50 ng/mL Performed By: #### 2 128231 ####[facility] [address] [place] [address] Cocaine Ql (U) Negative Normal NEGATIVE [facility] Comment on above: Result Comment: Nega tive Cutoff: <300 ng/mL Performed By: #### 2 679122 ####[facility] [address] [place] [address] Opiates Screen Ql (U) Positive Abnormal NEGATIVE [facility] Comment on above: Result Comment: Resu lt Verified by Repeat AnalysisUnconfirmed by an Alternate MethodNo Confirmation Requested by PhysicianResult called to Mary Lou (ER) by SW at 1018Negative Cutoff: <300 ng/mL Performed By: #### 2 737800 ####[facility] [address] [place] [address] Phencyclidine Screen method >25 ng/mL Ql (U) Negative Normal NEGATIVE [facility] Comment on above: Result Comment: Nega tive Cutoff: <25 ng/mLThese drug screen results are to be used for medical (i.e., treatment) purposes only. Unconfirmed drug screening results must not be used for non-medical purposes (e.g., employment testing, legal testing). Performed By: #### 2 969084 ####[place] [address] [place] [address] U Fentanyl Negative Normal NEGATIVE [facility] Comment on above: Result Comment: Nega tive Cutoff: <5 ng/mLThese drug screen results are to be used for medical (i.e., treatment) purposes only. Unconfirmed drug screening results must not be used for non-medical purposes (e.g., employment testing, legal testing). Performed By: #### 2 611330 ####[place] [address] [place] [address] UA with Cult Rflxon 08-27-19 24 Color (U) Light-Yellow Normal Yellow [facility] Comment on above: Result Comment: Micr oscopic readings are only performed on those samples that meet specific criteria set forth by [facility]. Performed By: #### 4 [id number] ####[place] [address] [place] [address] Glucose (U) [Mass/Vol] Negative Normal Negative [facility] Comment on above: Performed By: #### 4 [id number] ####[place] [address] [place] [address] Ketones Ql (U) Negative Normal Negative [facility] Comment on above: Performed By: #### 4 [id number] ####[place] [address] [place] [address] UA Blood Negative Normal Negative [facility] Comment on above: Performed By: #### 4 [id number] ####[facility] [address] [place] [address] UA Clarity Clear Normal Clear [facility] Comment on above: Performed By: #### 4 [id number] ####[facility] [address] [place] [address] UA Leuk Est Negative Normal Negative [facility] Comment on above: Performed By: #### 4 [id number] ####[facility] [address] [place] [address] UA Nitrite Negative Normal Negative [facility] Comment on above: Performed By: #### 4 [id number] ####[facility] [address] [place] [address] UA pH 6.0 Invalid Interpretation Code 5.0-9.0 [facility] Comment on above: Performed By: #### 4 [id number] ####[facility] [address] [place]Nthe [place] [address] UA Protein Negative Normal Negative [facility] Comment on above: Performed By: #### 4 [id number] ####[facility] [address] [place] [address] UA Spec Grav 1.014 Invalid Interpretation Code 1.005-1.03 0 [facility] Comment on above: Performed By: #### 4 [id number] ####[facility] [address] [facility] [address] UA Urobilinogen Negative Normal Negative [facility] Comment on above: Performed By: #### 4 [id number] ####[facility] [address] [place] [address] Urobilinogen (U) [Mass/Vol] Negative Normal Negative [facility] Comment on above: Performed By: #### 4 [id number] ####[facility] [address] [place] [address] UA Spec Desc Catheter Normal [facility] Comment on above: Performed By: #### 4 [id number] ####[facility] [address] [place] [address] URINALYSISOrdered By: SYSTEM SYSTEM on 08-27-2023 Color (U) Light-Yellow 3 (08/27/23 8:49 AM) Normal Yellow [facility] UA Auto SS Comment on above: Interpretive Data: M icroscopic readings are only performed on those samples that meet specific criteria set forth by [facility]. Glucose (U) [Mass/Vol] Negative Normal Negat ivemg /dL [facility] UA Auto SS Ketones Ql (U) Negative Normal Negativemg /dL [facility] UA Auto SS UA Blood Negative Normal Negativemg /dL [facility] UA Auto SS UA Clarity Clear (08/27/23 8:49 AM) Normal Clear FT UA Auto SS UA Leuk Est Negative Normal NegativeLe u/uL FT UA Auto SS UA Nitrite Negative Normal Negativemg /dL [facility] UA Auto SS UA pH 6.0 *NA* (08/27/23 8:49 AM) Invalid Interpretation Code 5.0 - 9.0 FT UA Auto SS UA Protein Negative Normal Negativemg /dL [facility] UA Auto SS UA Spec Grav 1.014 *NA* (08/27/23 8:49 AM) Invalid Interpretation Code 1.005 - 1.030 FT UA Auto SS UA Urobilinogen Negative Normal Negativemg /dL [facility] UA Auto SS Urobilinogen (U) [Mass/Vol] Negative Normal Negativemg /dL [facility] UA Auto SS URINALYSISOrdered By: Rodrigue ferrara on 08-27-2023 UA Spec Desc Catheter (08/27/23 8:49 AM) Normal [facility] UA Auto SS Work Phone: eGFRon 08-27-2023 eGFR 52 mL/min/1.73 m2 Low >=59 [facility] Comment on above: Order Comment: Order added by Discern Expert. Performed By: #### 2 [id number], [id number], [id number] ####[facility] [address] [place] [address] PT - Orderson 08-26-2023 PT - Orders [id number] Normal [facility] Alanine aminotransferase [En zymatic activity/volume] in Serum or PlasmaOrdered By: Senthil Torres on 08-22-2023 ALT [Catalytic activity/Vol] 8 U/L Normal 7-52 [facility] Comment on above: Performed By: #### C MP, CK, HS TROP, CBC #### [facility] [address] Albumin [Mass/volume] in Ser um or Plasma by Bromocresol green (BCG) dye binding methoOrdered By: Senthil Torres on 08-22-2023 Albumin BCG dye [Mass/Vol] 4.2 g/dL 3.5-5.7 [facility] Alkaline phosphatase [Enzyma tic activity/volume] in Serum or PlasmaOrdered By: Senthil Torres on 08-22-2023 ALP [Catalytic activity/Vol] 82 U/L Normal 34-104 [facility] Comment on above: Performed By: #### C MP, CK, HS TROP, CBC #### [facility] [address] [place] [address] [place] Aspartate aminotransferase [ Enzymatic activity/volume] in Serum or PlasmaOrdered By: Senthil Torres on 08-22-2023 AST [Catalytic activity/Vol] 19 U/L Normal 13-39 [facility] Comment on above: Performed By: #### C MP, CK, HS TROP, CBC #### [address] Automated basophil %Ordered By: Senthil Torres on 08-22-2023 Basophils/100 WBC (Bld) 0.7 % Normal . [facility] Comment on above: Performed By: #### C MP, CK, HS TROP, CBC #### [address] Automated basophil countOrde red By: Senthil Torres on 08-22-2023 Basophils (Bld) [#/Vol] 0.1 10*3/uL Normal 0.0-0.2 [facility] Comment on above: Result Comment: PERF ORMED BY: [place] [address] PATHOLOGIST AUDIO TECHNICIAN CORIE SILVA M.D. Performed By: #### C MP, CK, HS TROP, CBC #### [facility] [address] Automated blood monocyte cou ntOrdered By: Senthil Torrse on 08-22-2023 Monocytes (Bld) [#/Vol] 0.6 10*3/uL Normal 0.0-0.8 [facility] Comment on above: Performed By: #### C MP, CK, HS TROP, CBC #### [address] Automated eosinophil %Ordere d By: Senthil Torres on 08-22-2023 Eosinophils/100 WBC (Bld) 2.9 % Normal . [facility] Comment on above: Performed By: #### C MP, CK, HS TROP, CBC #### [address] Automated eosinophil countOr dered By: Senthil Torres on 08-22-2023 Eosinophils (Bld) [#/Vol] 0.2 10*3/uL Normal 0.0-0.45 [facility] Comment on above: Performed By: #### C MP, CK, HS TROP, CBC #### [address] Automated erythrocytes count in urine sediment (number/area)Ordered By: PROVIDER TEMP on 08-22-2023 RBC Auto (Urine sed) [#/Area] 1-2 [HPF] 0-4 [facility] Automated leukocytes count i n urine sediment (number/area)Ordered By: PROVIDER TEMP on 08-22-2023 WBC Auto (Urine sed) [#/Area] 20-49 [HPF] 0-4 [facility] Automated monocyte %Ordered By: Senthil Torres on 08-22-2023 Monocytes/100 WBC (Bld) 8.2 % Normal . [facility] Comment on above: Performed By: #### C MP, CK, HS TROP, CBC #### [address] Automated neutrophil %Ordere d By: Senthil Torres on 08-22-2023 Neutrophils/100 WBC (Bld) 66.3 % Normal . [facility] Comment on above: Performed By: #### C MP, CK, HS TROP, CBC #### [facility] [address] [place] [address] Automated urine color determ inationOrdered By: PROVIDER TEMP on 08-22-2023 Color (U) Yellow Normal Yellow [facility] Comment on above: Order Comment: Name Collection Type:: Clean-Voided Midstream Performed By: #### C MP, CK, HS TROP, CBC #### [address] Bilirubin Test strip Ql (U)O rdered By: PROVIDER TEMP on 08-22-2023 Bilirubin Ql (U) Negative Negative [facility] Bilirubin.total [Mass/volume ] in Serum or PlasmaOrdered By: Senthil Torres on 08-22-2023 Bilirubin [Mass/Vol] 0.8 mg/dL Normal 0.3-1.0 [facility] Comment on above: Performed By: #### C MP, CK, HS TROP, CBC #### [address] head/brain wo conon 08-21 CT head/brain wo con [place] [address] CT Scan Report Signed Patient: Maegan Dye MR#: [id number] : 1950 Acct:[id number] Age/Sex: 73 / F ADM Date: 08/22/23 Loc: ER Room: Type: [facility] ER Attending Dr: Copies to: Senthil Torres PA-C Ordering Provider: Senthil Torres PA-C Date of Service: 08/22/23 CT/CT head/brain wo con: altered mental status, fall Unenhanced head CT TECHNIQUE: Contiguous axial imaging of the head. The CT exam was performed using one or more the following dose reduction techniques: Automated exposure control, adjustment of the MA and/or Kv according to patient size, or use of the iterative reconstruction technique. COMPARISON: 07/05/2023 HISTORY: Fall. Altered mental status. VENTRICLES: Within normal limits ATROPHY: None BRAIN PARENCHYMA: Adequate roper-white matter differentiation identified. HEMORRHAGE: None HERNIATION: No mass effect or herniation INFARCTION: No recent vascular distribution infarction is seen. EXTRA-AXIAL FLUID COLLECTIONS None MIDBRAIN: Unremarkable ABI: Unremarkable MEDULLA: Unremarkable SINUSES: Unremarkable ORBITS: Grossly unremarkable MASTOIDS: Unremarkable BONY STRUCTURES Intact ADDITIONAL FINDINGS: Atherosclerosis of carotid siphons. CT/CT head/brain wo con IMPRESSION: No acute findings. Impression dictated by: Timo Tatum M.D.08/22/2023 1:57 PM Dictation Location: [place] [address] Transcribed By: [facility] 08/22/23 1357 Dictated By: Timo Tatum DO 08/22/23 1352 Signed By: 08/22/23 1357 Normal [facility] Physician [facility] Calcium [Mass/volume] in Ser um or PlasmaOrdered By: Senthil Torres on 08-22-2023 Calcium [Mass/Vol] 9.3 mg/dL Normal 8.6-10.3 [facility] Comment on above: Performed By: #### C MP, CK, HS TROP, CBC #### [address] Carbon dioxide, total [Moles /volume] in Serum or PlasmaOrdered By: Senthil Torres on 08-22-2023 CO2 [Moles/Vol] 31.0 mmol/L Normal 21.0-31.0 [facility] Comment on above: Performed By: #### C MP, CK, HS TROP, CBC #### [place] [address] [place] Chloride [Moles/volume] in S clarisa or PlasmaOrdered By: Senthil Torres on 08-22-2023 Chloride [Moles/Vol] 102 mmol/L Normal 98-107 [facility] Comment on above: Performed By: #### C MP, CK, HS TROP, CBC #### [facility] [address] [place], [place] [address] [place] Complete Blood Count Auto Di ffon 08-22-2023 Mean Corpuscular HGB Conc 33.0 g/dL Normal 32.0-35.0 [facility] Comment on above: Performed By: #### C MP, CK, HS TROP, CBC #### [address] Monocytes/100 WBC (Bld) 16.36 % Normal 0.00-20.00 [facility] Comment on above: Performed By: #### C MP, CK, HS TROP, CBC #### [address] NRBC% 0.1 /100{WBC} Normal 0-0.5 [facility] Comment on above: Performed By: #### C MP, CK, HS TROP, CBC #### [address] Comprehensive Metabolic Pane isauro 08-22-2023 Albumin [Mass/Vol] 4.2 g/dL Normal 3.5-5.7 [facility] Comment on above: Performed By: #### C MP, CK, HS TROP, CBC #### [address] Creatinine Clr Calc Pharmacy 33.43 Normal [facility] Comment on above: Result Comment: PERF ORMED BY: [place] [address] PATHOLOGIST AUDIO TECHNICIAN CORIE SILVA M.D. Performed By: #### C MP, CK, HS TROP, CBC #### [address] GFR/1.73 sq M.predicted MDRD (S/P/Bld) [Vol rate/Area] 49.679 mL/min/{1.73_m2} Normal [facility] Comment on above: Performed By: #### C MP, CK, HS TROP, CBC #### [place] [address] [place] Creatine kinase [Enzymatic a ctivity/volume] in Serum or PlasmaOrdered By: Senthil Torres on 08-22-2023 CK [Catalytic activity/Vol] 117 U/L Normal 30-223 [facility] Comment on above: Performed By: #### C MP, CK, HS TROP, CBC #### [place] [address] [place] Creatinine [Mass/volume] in Serum or PlasmaOrdered By: Senthil Torres on 08-22-2023 Creatinine [Mass/Vol] 1.15 mg/dL Normal 0.60-1.20 [facility] Comment on above: Performed By: #### C MP, CK, HS TROP, CBC #### [address] Dipstick and Microscopicon 0 08-22-2023 Appearance (U) Cloudy Critically abnormal Clear [facility] Comment on above: Order Comment: Name Collection Type:: Clean-Voided Midstream Performed By: #### C MP, CK, HS TROP, CBC #### [address] Bacteria,Urine None Seen Normal None Seen [facility] Comment on above: Order Comment: Name Collection Type:: Clean-Voided Midstream Performed By: #### C MP, CK, HS TROP, CBC #### [address] Bilirubin,Urine Negative Normal Negative [facility] Comment on above: Order Comment: Name Collection Type:: Clean-Voided Midstream Performed By: #### C MP, CK, HS TROP, CBC #### [address] Glucose Ql (U) Normal Normal Normal [facility] Comment on above: Order Comment: Name Collection Type:: Clean-Voided Midstream Performed By: #### C MP, CK, HS TROP, CBC #### [address] Hyaline Casts,Urine 0-8 Normal 0-8 [facility] Comment on above: Order Comment: Name Collection Type:: Clean-Voided Midstream Performed By: #### C MP, CK, HS TROP, CBC #### [address] Ketones Ql (U) Negative Normal Negative [facility] Comment on above: Order Comment: Name Collection Type:: Clean-Voided Midstream Performed By: #### C MP, CK, HS TROP, CBC #### [address] [place] [address] [place] Leukocyte esterase Test strip Ql (U) 4+ High Negative [facility] Comment on above: Order Comment: Name Collection Type:: Clean-Voided Midstream Performed By: #### C MP, CK, HS TROP, CBC #### [facility] [address] [place] [address] [place] Nitrite,Urine Negative Normal Negative [facility] Comment on above: Order Comment: Name Collection Type:: Clean-Voided Midstream Performed By: #### C MP, CK, HS TROP, CBC #### [address] Occult Blood,Urine Negative Normal Negative [facility] Comment on above: Order Comment: Name Collection Type:: Clean-Voided Midstream Result Comment: PERF ORMED BY: [place] [address] PATHOLOGIST AUDIO TECHNICIAN CORIE SILVA M.D. Performed By: #### C MP, CK, HS TROP, CBC #### [place] [address] [place] Protein,Urine Negative Normal Negative [facility] Comment on above: Order Comment: Name Collection Type:: Clean-Voided Midstream Performed By: #### C MP, CK, HS TROP, CBC #### [place] [address] [place] RBC,Urine 1-2 Normal 0-4 [facility] Comment on above: Order Comment: Name Collection Type:: Clean-Voided Midstream Performed By: #### C MP, CK, HS TROP, CBC #### [place] [address] [place] Specificy [place],Urine 1.013 Normal 1.001-1.03 0 [facility] Comment on above: Order Comment: Name Collection Type:: Clean-Voided Midstream Performed By: #### C MP, CK, HS TROP, CBC #### [place] [address] [place] Squamous Epithelial Cell,Urine 10-19 High 0-2 [facility] Comment on above: Order Comment: Name Collection Type:: Clean-Voided Midstream Performed By: #### C MP, CK, HS TROP, CBC #### [address] Urobilinogen,Urine Normal Normal Normal [facility] Comment on above: Order Comment: Name Collection Type:: Clean-Voided Midstream Performed By: #### C MP, CK, HS TROP, CBC #### [address] WBC,Urine 20-49 High 0-4 [facility] Comment on above: Order Comment: Name Collection Type:: Clean-Voided Midstream Performed By: #### C MP, CK, HS TROP, CBC #### [address] Yeast,Urine 3+ Critically abnormal None Seen [facility] Comment on above: Order Comment: Name Collection Type:: Clean-Voided Midstream Result Comment: PERF ORMED BY: [place] [address] PATHOLOGIST AUDIO TECHNICIAN CORIE SILVA M.D. Performed By: #### C MP, CK, HS TROP, CBC #### [address] ECG 12 lead ECGon 08-22-2023 ECG 12 lead ECG [facility] [place] [address] [place] [address] Electrocardiograph Report Signed Patient: Maegan Dye MR#: [id number] : 1950 Acct:[id number] Age/Sex: 73 / F ADM Date: 08/22/23 Loc: ER Room: Type: [facility] ER Attending Dr: Ordering Provider: Senthil Torres PA-C Date of Service: 08/22/23 ECG/ECG 12 lead ECG: Altered Mental Status Copies to: Test Reason : Blood Pressure : / mmHG Vent. Rate : 060 BPM Atrial Rate : 060 BPM P-R Int : 214 ms QRS Dur : 086 ms QT Int : 434 ms P-R-T Axes : 080 077 072 degrees QTc Int : 434 ms Sinus rhythm with 1st degree AV block Cannot rule out Anterior infarct , age undetermined Abnormal ECG When compared with ECG of 05-JUL-2023 15:54, premature ventricular complexes are no longer present Confirmed by CHANDAN KRUGER MD ([id number]) on 08/22/2023 3:00:00 PM Referred By: Electronically Signed By:CHANDAN KRUGER MD Transcribed By: MUS Signed By Chandan Kruger MD 08/22/23 1500 Normal [facility] Erythrocyte distribution wid th [Ratio] by Automated countOrdered By: Senthil Torres on 08-22-2023 Erythrocyte distribution width (RBC) [Ratio] 13.0 % Normal 11.9-15.3 [facility] Comment on above: Performed By: #### C MP, CK, HS TROP, CBC #### [facility] [address] Erythrocytes [#/volume] in B lood by Automated countOrdered By: Senthil Torres on 08-22-2023 RBC (Bld) [#/Vol] 4.41 10*6/uL Normal 3.60-5.00 [facility] Comment on above: Performed By: #### C MP, CK, HS TROP, CBC #### [facility] [address] [place] [address] [place] Glucose [Mass/volume] in Ser um or PlasmaOrdered By: Senthil Torres on 08-22-2023 Glucose [Mass/Vol] 104 mg/dL High 70-100 [facility] Comment on above: ADA recommended refe rence rangeRandom Glucose Reference Range is dependent on time and content of last meal. Glucose of more than 200 mg/dL in a nonstressed, ambulatory subject supports the diagnosis of Diabetes Mellitus. Result Comment: [place] Glucose Reference Range is dependent on time and content of last meal. Glucose of more than 200 mg/dL in a nonstressed, ambulatory subject supports the diagnosis of Diabetes Mellitus. ADA recommended reference range Performed By: #### C MP, CK, HS TROP, CBC #### [facility] [address] [place] [id number] [place] Hematocrit [Volume Fraction] of Blood by Automated countOrdered By: Senthil Torres on 08-22-2023 Hematocrit (Bld) [Volume fraction] 38.5 % Normal 34.0-46.4 [facility] Comment on above: Performed By: #### C MP, CK, HS TROP, CBC #### [facility] [address] Hemoglobin [Mass/volume] in BloodOrdered By: Senthil Torres on 08-22-2023 Hemoglobin (Bld) [Mass/Vol] 12.7 g/dL Normal 11.8-15.4 [facility] Comment on above: Performed By: #### C MP, CK, HS TROP, CBC #### [facility] [address] Ketones Auto test strip (U) [Mass/Vol]Ordered By: PROVIDER TEMP on 08-22-2023 Ketones (U) [Mass/Vol] Negative Negative [facility] - UrinalysisOrder ed By: PROVIDER TEMP on 08-22-2023 Hyaline casts LM Ql (Urine sed) 0-8 [LPF] 0-8 [facility] Leukocytes [#/volume] correc kenyatta for nucleated erythrocytes in Blood by Automated counOrdered By: Senthil Torres on 08-22-2023 WBC corrected for nucl RBC Auto (Bld) [#/Vol] 6.8 10*3/uL 3.8-11.6 [facility] Leukocytes [#/volume] in Blo od by Automated countOrdered By: Senthil Torres on 08-22-2023 WBC (Bld) [#/Vol] 6.8 10*3/uL Normal 3.8-11.6 [facility] Comment on above: Performed By: #### C MP, CK, HS TROP, CBC #### [facility] [address] Lymphocytes [#/volume] in Bl ood by Automated countOrdered By: Senthil Torres on 08-22-2023 Lymphocytes (Bld) [#/Vol] 1.5 10*3/uL Normal 1.00-4.8 [facility] Comment on above: Performed By: #### C MP, CK, HS TROP, CBC #### [facility] [address] [place] [address] Lymphocytes/100 leukocytes i n Blood by Automated countOrdered By: Senthil Torres on 08-22-2023 Lymphocytes/100 WBC (Bld) 21.9 % Normal . [facility] Comment on above: Performed By: #### C MP, CK, HS TROP, CBC #### [address] MCH [Entitic mass] by Automa kenyatta countOrdered By: Senthil Torres on 08-22-2023 MCH (RBC) [Entitic mass] 28.8 pg Normal 24.7-34.3 [facility] Comment on above: Performed By: #### C MP, CK, HS TROP, CBC #### [address] MCHC Auto (RBC) [Mass/Vol]Or dered By: Senthil Torres on 08-22-2023 MCHC (RBC) [Mass/Vol] 33.0 g/dL 32.0-35.0 [facility] MCV [Entitic volume] by Auto mated countOrdered By: Senthil Torres on 08-22-2023 MCV (RBC) [Entitic vol] 87.2 fL Normal 80-100 [facility] Comment on above: Performed By: #### C MP, CK, HS TROP, CBC #### [address] Monocyte distribution width [Entitic volume] in Blood by AutomatedOrdered By: Senthil Torres on 08-22-2023 Monocyte distribution width Auto (Bld) [Entitic vol] 16.36 % 0.00-20.00 [facility] Neutrophils [#/volume] in Bl ood by Automated countOrdered By: Senthil Torres on 08-22-2023 Neutrophils (Bld) [#/Vol] 4.5 10*3/uL Normal 1.8-7.7 [facility] Comment on above: Performed By: #### C MP, CK, HS TROP, CBC #### [address] Nitrite Test strip Ql (U)Ord ered By: AUGUSTIN TEMP on 08-22-2023 Nitrite Ql (U) Negative Negative [facility] No Panel InformationOrdered By: Senthil Torres on 08-22-2023 Estimated GFR (CKD-EPI) 49.679 mL/Min [facility] Creatinine Clearance (Chem 33.43 [facility] Nucleated erythrocytes [Pres ence] in Blood by Automated countOrdered By: Senthil Torres on 08-22-2023 Nucleated RBC Auto Ql (Bld) 0.1 /100{WBC} 0-0.5 [facility] Platelet mean volume [Entiti c volume] in Blood by Automated countOrdered By: Senthil Torres on 08-22-2023 Platelet mean volume (Bld) [Entitic vol] 7.5 fL Normal 6.3-10.7 [facility] Comment on above: Performed By: #### C MP, CK, HS TROP, CBC #### [facility] [address] [place] [address] [place] Platelets [#/volume] in Bloo d by Automated countOrdered By: Senthil Torres on 08-22-2023 Platelets (Bld) [#/Vol] 212 10*3/uL Normal 150-450 [facility] Comment on above: Performed By: #### C MP, CK, HS TROP, CBC #### [facility] [address] [place] [address] [place] Potassium [Moles/volume] in Serum or PlasmaOrdered By: Senthil Torres on 08-22-2023 Potassium [Moles/Vol] 3.3 mmol/L Low 3.5-5.1 [facility] Comment on above: Performed By: #### C MP, CK, HS TROP, CBC #### [facility] [address] [place] [address] [place] Protein Auto test strip (U) [Mass/Vol]Ordered By: PROVIDER TEMPalmer on 08-22-2023 Protein (U) [Mass/Vol] Negative Negative [facility] Protein [Mass/volume] in Ser um or PlasmaOrdered By: Senthil Torres on 08-22-2023 Protein [Mass/Vol] 6.6 g/dL Normal 6.4-8.9 [facility] Comment on above: Performed By: #### C MP, CK, HS TROP, CBC #### [facility] [address] [place] [address] Serum globulin measurement b y calculation (mass/volume)Ordered By: Senthil Torres on 08-22-2023 Globulin (S) [Mass/Vol] 2.4 g/dL [facility] Comment on above: Performed By: #### C MP, CK, HS TROP, CBC #### [address] Serum or plasma albumin/glob ulin mass ratioOrdered By: Senthil Torres on 08-22-2023 Albumin/Globulin [Mass ratio] 1.8 {ratio} [facility] Comment on above: Performed By: #### C MP, CK, HS TROP, CBC #### [address] Serum or plasma anion gap de terminationOrdered By: Senthil Torres on 08-22-2023 Anion gap [Moles/Vol] 9.3 mmol/L Normal 6.0-15.0 [facility] Comment on above: Performed By: #### C MP, CK, HS TROP, CBC #### [address] Sodium [Moles/volume] in Ser um or PlasmaOrdered By: Senthil Torres on 08-22-2023 Sodium [Moles/Vol] 139 mmol/L Normal 136-145 [facility] Comment on above: Performed By: #### C MP, CK, HS TROP, CBC #### [address] Specific gravity Auto test s trip (U) [Rel density]Ordered By: PROVIDER TEMP on 08-22-2023 Specific gravity (U) [Rel density] 1.013 1.001-1.03 0 [facility] Spermatozoa detection in uri ne sediment by light microscopyOrdered By: PROVIDER TEMP on 08-22-2023 Spermatozoa LM Ql (Urine sed) N/A [facility] Squamous epithelial cells de tection in urine sediment by light microscopyOrdered By: PROVIDER TEMP on 08-22-2023 Epithelial cells.squamous LM Ql (Urine sed) 10-19 [HPF] 0-2 [facility] Troponin I High Sensitivityo n 08-22-2023 Troponin I High Sensitivity 3.4 pg/mL Normal 0.0-15.0 [facility] Comment on above: Result Comment: PERF ORMED BY: [place] [address] PATHOLOGIST AUDIO TECHNICIAN CORIE SILVA M.D. Performed By: #### C MP, CK, HS TROP, CBC #### [facility] [address] Troponin I.cardiac [Mass/vol ume] in Serum or Plasma by Detection limit <= 0.01 ng/Ordered By: Senthil Torres on 08-22-2023 Troponin I.cardiac DL <= 0.01 ng/mL [Mass/Vol] 3.4 pg/mL 0.0-15.0 [facility] Urea nitrogen [Mass/volume] in Serum or PlasmaOrdered By: Senthil Torres on 08-22-2023 Urea nitrogen [Mass/Vol] 10 mg/dL Normal 7-25 [facility] Comment on above: Performed By: #### C MP, CK, HS TROP, CBC #### [facility] [address] Urine Cultureon 08-22-2023 Bacteria identified Cx Nom (U) ORGANISM: Staphylococcus epidermidis (O:STAEPI) [place] Count >100,000 Aerobic REINALDO Charge (PCMIC38) SUSCEPTIBILITY ORGANISM: O:STAEPI ANTIBIOTIC INTERPRETATION REINALDO Ciprofloxacin R >2 Daptomycin S <0.5 Levofloxacin R >4 Linezolid S 2 Nitrofurantoin S <32 Oxacillin R >2 Penicillin R >2 Tetracycline S <4 Trimethoprim/Sulfamethoxaz ole R >2 Vancomycin S 1 S = SUSCEPTIBLE I = INTERMEDIATE R = RESISTANT BLANK = DATA NOT AVAILABLE, OR DRUG NOT ADVISABLE OR TESTED R* = RESISTANCE DUE TO EXTENDED SPECTRUM BETA-LACTAMASES ESBL = EXTENDED SPECTRUM BETA-LACTAMASE TFG = THYMIDINE-DEPENDENT STRAIN ANAY = BETA-LACTAMASE POSITIVE IB = INDUCIBLE BETA-LACTAMASE. APPEARS IN PLACE OF 'S' WITH SPECIES KNOWN TO POSSESS INDUCIBLE BETA-LACTAMASES. POTENTIALLY THEY MAY BECOME RESISTANT TO ALL B-LACTAM DRUGS. PERFORMED BY: [place] [address] PATHOLOGIST AUDIO TECHNICIAN CORIE SILVA M.D. Normal [facility] Comment on above: Performed By: #### C MP, CK, HS TROP, CBC #### [facility] [address] Urine bacteria detection by automated methodOrdered By: PROVIDER [facility] on 08-22-2023 Bacteria Auto Ql (U) None seen None Seen [facility] Urine clarity by refractomet ry automatedOrdered By: PROVIDER [facility] on 08-22-2023 Clarity Refractometry automated (U) Cloudy Clear [facility] Urine culture routineOrdered By: PROVIDER [facility] on 08-22-2023 Bacteria identified Cx Nom (U) Staphylococcus epidermidis [facility] Urine glucose measurement by automated test strip (mass/volume)Ordered By: PROVIDER [facility] on 08-22-2023 Glucose Auto test strip (U) [Mass/Vol] Normal mg/dL Normal [facility] Urine hemoglobin detection b y automated test stripOrdered By: PROVIDER TEM on 08-22-2023 Hemoglobin Auto test strip Ql (U) Negative Negative [facility] Urine leukocyte esterase det ection by automated test stripOrdered By: PROVIDER TEM on 08-22-2023 Leukocyte esterase Auto test strip Ql (U) 4+ Negative [facility] Urine pH measurement by auto mated test stripOrdered By: PROVIDER TEM on 08-22-2023 pH (U) 6.5 [pH] Normal 5.0-9.0 [facility] Comment on above: Order Comment: Name Collection Type:: Clean-Voided Midstream Performed By: #### C MP, CK, HS TROP, CBC #### [facility] [address] [place], [place] [id number] [place] Urobilinogen Auto test strip (U) [Mass/Vol]Ordered By: PROVIDER TEM on 08-22-2023 Urobilinogen (U) [Mass/Vol] Normal mg/dL Normal [facility] Yeast detection in urine sed iment by light microscopyOrdered By: PROVIDER TEMP on 08-22-2023 Yeast LM Ql (Urine sed) 3+ [HPF] None Seen [facility] Consent for Treatmenton 07-25 Consent for Treatment [id number] Normal [facility] ED Clinical Summaryon 2023 ED Clinical Summary Normal Kait mccray [facility] ED Patient Education Noteon 08-21-2023 ED Patient Education Note Normal [facility] ED Patient Summaryon 024 ED Patient Summary Normal [facility] CBC w/ Auto Diffon 4 Basophils/100 WBC (Bld) 1.1 % Normal 0.0-2.0 [facility] Comment on above: Performed By: #### 7 [id number], 5594018, 104893266, 4780570, 2016759, 77032890 ####[facility] [address] [place] [address] Basophils/Leukocytes Auto (Bld) [Pure # fraction] 0.1 E9/L Normal 0.0-0.2 [facility] Comment on above: Performed By: #### 7 91562828, 5139219, 970174271, 6150170, 1414288, 75767551 ####[facility] [address] [place] [address] Eosinophils (Bld) [#/Vol] 0.3 E9/L Normal 0.0-0.5 [facility] Comment on above: Performed By: #### 7 82923052, 6718693, 942720945, 2472342, 4618470, 22597096 ####[facility] [address] [place] [address] Eosinophils/100 WBC (Bld) 4.9 % Normal 0.0-8.0 [facility] Comment on above: Performed By: #### 7 12563658, 1505053, 936512187, 1876834, 6037016, 15555446 ####[place] [address] [place] [address] Erythrocyte distribution width (RBC) [Ratio] 13.0 % Normal 10.9-14.2 [facility] Comment on above: Performed By: #### 7 98245985, 2862115, 626229080, 1407556, 7106382, 39047696 ####[address] [place] [address] Hematocrit (Bld) [Volume fraction] 41.4 % Normal 34.0-46.0 [facility] Comment on above: Performed By: #### 7 10571380, 1367750, 181440608, 9511581, 8108662, 97625889 ####[address] [address] Hemoglobin (Bld) [Mass/Vol] 13.0 g/dL Normal 12.0-16.0 [facility] Comment on above: Performed By: #### 7 66797586, 3545444, 669383359, 3240250, 4592820, 50157074 ####[address] [address] Lymphocytes (Bld) [#/Vol] 1.6 E9/L Normal 1.0-4.0 [facility] Comment on above: Performed By: #### 7 77944608, 8033995, 492921952, 8681175, 3036792, 44798287 ####[address] [place] [place] [address] Lymphocytes/100 WBC (Bld) 28.3 % Normal 14.0-50.0 [facility] Comment on above: Performed By: #### 7 85302840, 9559432, 835077801, 0219753, 3331727, 32866405 ####[address] [address] MCH (RBC) [Entitic mass] 28.2 pg Normal 27.0-34.0 [facility] Comment on above: Performed By: #### 7 41269652, 7078664, 553336001, 1150460, 2667993, 24261856 ####[facility] [address] [place] [address] MCHC (RBC) [Mass/Vol] 31.4 g/dL Normal 31.4-36.0 [facility] Comment on above: Performed By: #### 7 44302144, 7394447, 777590900, 9483793, 9755526, 81856933 ####[place] [place] [address] MCV (RBC) [Entitic vol] 89.7 fL Normal 80.0-100.0 [facility] Comment on above: Performed By: #### 7 00719391, 3655305, 822344275, 6997195, 6266747, 52131666 ####[address] [address] Monocytes (Bld) [#/Vol] 0.3 E9/L Normal 0.2-1.0 [facility] Comment on above: Performed By: #### 7 66194302, 4604828, 520382266, 2285878, 2686234, 03988389 ####[address] [address] Neutrophils (Bld) [#/Vol] 3.3 E9/L Normal 2.0-7.5 [facility] Comment on above: Performed By: #### 7 53463153, 5879643, 727070879, 9206889, 0069296, 80282906 ####[address] [place] [address] Neutrophils/100 WBC (Bld) 60.2 % Normal 36.0-75.0 [facility] Comment on above: Performed By: #### 7 15122143, 0203437, 787502437, 6614692, 0823315, 91906694 ####[facility] [address] [place] [address] Platelet 162.0 E9/L Normal 150.0-500. 0 [facility] Comment on above: Performed By: #### 7 93590333, 1666945, 695043480, 2343905, 1732966, 87657732 ####[facility] [address] [place] [address] Platelet mean volume (Bld) [Entitic vol] 8.5 fL Normal 6.4-10.8 [facility] Comment on above: Performed By: #### 7 12824412, 4954176, 542436132, 7575137, 9394545, 54071266 ####[facility] [address] [place] [address] RBC (Bld) [#/Vol] 4.6 E12/L Normal 4.3-5.9 [facility] Comment on above: Performed By: #### 7 51337210, 7522183, 444933315, 7862212, 1810920, 25558629 ####[facility] [address] [place] [address] WBC corrected for nucl RBC Auto (Bld) [#/Vol] 5.5 E9/L Normal 4.0-11.0 [facility] Comment on above: Performed By: #### 7 99852802, 4893994, 319058066, 2099589, 7045322, 45077205 ####[facility] [address] [place] [address] CMPon 08-20-2023 Albumin [Mass/Vol] 4.0 g/dL Normal 3.3-5.0 [facility] Comment on above: Performed By: #### 7 07442808, 2420169, 125093237, 2099866, 6980980, 57439344 ####[facility] [address] [place] [address] Albumin/Globulin (S) [Mass conc ratio] 1.8 Normal 1.1-2.2 [facility] Comment on above: Performed By: #### 7 18985101, 2278442, 287164143, 9196493, 6183155, 15900192 ####[facility] [address] [place] [address] ALP [Catalytic activity/Vol] 84 Int._Unit/L Normal 21-98 [facility] Comment on above: Performed By: #### 7 95243928, 9028934, 825081960, 9753002, 1111826, 10651780 ####[facility] [address] [place] [address] ALT No additional P-5'-P [Catalytic activity/Vol] 8 Int._Unit/L Normal 6-46 [facility] Comment on above: Performed By: #### 7 22599111, 9470657, 076395514, 0533368, 6747043, 78222927 ####[facility] [address] [place] [address] Anion gap [Moles/Vol] 9 mmol/L Normal 6-16 [facility] Comment on above: Performed By: #### 7 15601806, 6168680, 039575894, 3542059, 7847531, 95350284 ####[facility] [address] [place] [address] AST [Catalytic activity/Vol] 16 Int._Unit/L Normal 5-43 [facility] Comment on above: Performed By: #### 7 24268518, 6691022, 345433122, 8412969, 2928122, 58597651 ####[facility] [address] [place] [address] Bilirubin [Mass/Vol] 0.5 mg/dL Normal 0.0-1.1 [facility] Comment on above: Performed By: #### 7 35588132, 3136884, 876493412, 5046754, 2799689, 90669314 ####[facility] [address] [place] [address] Calcium [Mass/Vol] 9.2 mg/dL Normal 8.9-11.1 [facility] Comment on above: Performed By: #### 7 96211814, 7427308, 113901161, 2308840, 8037497, 29465671 ####[facility] [address] [place] [address] Chloride [Moles/Vol] 105 mmol/L Normal 101-111 [facility] Comment on above: Performed By: #### 7 42773531, 4655789, 134492351, 3357232, 4303729, 43167219 ####[facility] [address] [place] [address] CO2 [Moles/Vol] 30 mmol/L Normal 21-31 [facility] Comment on above: Performed By: #### 7 44147914, 0660691, 335499185, 5887789, 1481081, 72358559 ####[facility] [address] [place] [address] Creatinine [Mass/Vol] 1.2 mg/dL Normal 0.5-1.3 [facility] Comment on above: Performed By: #### 7 [id number], 9950741, 088582818, 7353167, 2838667, 63846703 ####[facility] [address] [place] [address] Globulin (S) [Mass/Vol] 2.2 g/dL Normal 1.4-4.0 [facility] Comment on above: Performed By: #### 7 [id number], 4048983, 774709699, 4564281, 1996442, 08916585 ####[facility] [address] [place] [address] Glucose [Mass/Vol] 108 mg/dL Normal 55-199 [facility] Comment on above: Performed By: #### 7 [id number], 0642648, 698391151, 8836237, 2898914, 78187913 ####[facility] [address] [place] [address] Potassium [Moles/Vol] 3.7 mmol/L Normal 3.5-5.3 [facility] Comment on above: Performed By: #### 7 68565491, 6784650, 972735832, 2324665, 0974898, 75519052 ####[facility] [address] [place] [address] Protein [Mass/Vol] 6.2 g/dL Normal 6.0-7.8 [facility] Comment on above: Performed By: #### 7 42394264, 6907934, 760950679, 9981563, 9628452, 06126669 ####[facility] [address] [place] [address] Sodium [Moles/Vol] 140 mmol/L Normal 135-145 [facility] Comment on above: Performed By: #### 7 55188810, 0985306, 249480867, 7149670, 7507202, 49610191 ####[facility] [address] [place] [address] Urea nitrogen [Mass/Vol] 10 mg/dL Normal 5-21 [facility] Comment on above: Performed By: #### 7 45656475, 9187783, 207999801, 5989947, 5441802, 31671720 ####[facility] [address] [place] [address] Urea nitrogen/Creatinine [Mass ratio] 8 No Units Low 10-20 [facility] Comment on above: Performed By: #### 7 22075720, 2439331, 113308919, 0932719, 7487785, 82303205 ####[facility] [address] [place] [address] YxqI7dvd 08-20-2023 HbA1c (Bld) [Mass fraction] 5.5 % Normal <=5.9 [facility] Comment on above: Performed By: #### 7 88459200, 9983822, 981704479, 1863059, 8015246, 54354062 ####[facility] [address] [place] [address] Vit B12on 08-20-2023 Cobalamin (Vitamin B12) [Mass/Vol] 354 pg/mL Normal 50-1500 [facility] Comment on above: Performed By: #### 7 74203361, 1438627, 722877710, 8009466, 6007052, 88123114 ####[address] [address] Vitamin D 25 Hydroxyon 08-19 25-hydroxyvitamin D3 [Mass/Vol] 39.9 ng/mL Normal 30.0-100.0 [facility] Comment on above: Performed By: #### 7 04574746, 5809297, 143172587, 7896306, 0709227, 71929822 ####[address] [address] eGFRon 08-20-2023 eGFR 47 mL/min/1.73 m2 Low >=59 [facility] Comment on above: Order Comment: Order added by Discern Expert. Performed By: #### 7 60866884, 1828850, 879352393, 7166569, 6256800, 49342555 ####[address] [address] Physician Orderon 08-18-2023 Physician Order [id number]#1.00TIFF Normal [facility] .UA With Cult Reflexon 08-13 Bilirubin Ql (U) Negative Normal Negative [facility] Comment on above: Performed By: #### 1 4933643 ####[address] [address] Clarity (U) CLEAR Normal Clear [facility] Comment on above: Performed By: #### 1 8762753 ####[address] [address] Color (U) STRAW Invalid Interpretation Code [facility] Comment on above: Performed By: #### 1 2700321 ####[facility] [address] [place] [address] Glucose Test strip (U) [Mass/Vol] Negative Normal Negative [facility] Comment on above: Performed By: #### 1 8708260 ####[facility] [address] [place] [address] Hemoglobin Ql (U) Negative Normal Negative [facility] Comment on above: Performed By: #### 1 1973835 ####[place] [address] [place] [address] Ketones (U) [Mass/Vol] Negative Normal Negative [facility] Comment on above: Performed By: #### 1 5090733 ####[address] [address] Nitrite Ql (U) Negative Normal Negative [facility] Comment on above: Performed By: #### 1 0788111 ####[address] [address] pH (U) 8.0 [pH] Invalid Interpretation Code 5.0-9.0 [facility] Comment on above: Performed By: #### 1 4737186 ####[address] [address] Protein (U) [Mass/Vol] Negative Normal Negative [facility] Comment on above: Performed By: #### 1 7844017 ####[address] [address] Specific gravity (U) [Rel density] 1.025 Invalid Interpretation Code 1.005-1.03 0 [facility] Comment on above: Performed By: #### 1 7082050 ####[address] [address] Type of Urine collection method Mcdonough Normal [facility] Comment on above: Performed By: #### 1 4068424 ####[address] [address] Urobilinogen Qn (U) 0.2 {Rolan'U}/dL Normal 0.0-1.0 [facility] Comment on above: Performed By: #### 1 2512283 ####[address] [address] WBC Auto Ql (U) Negative Normal Negative [facility] Comment on above: Performed By: #### 1 6346869 ####[place] [address] Epithelial cells.squamous LM.HPF (Urine sed) [#/Area] 0-2 Normal 0-2 [facility] Comment on above: Performed By: #### 1 2129686 ####[place] [address] Ord.plasma/Ord .RBC (Bld) [Mass ratio] 0-3 Normal 0-3 [facility] Comment on above: Performed By: #### 1 3936248 ####[place] [address] WBC LM.HPF (Urine sed) [#/Area] 0-5 Normal 0-5 [facility] Comment on above: Performed By: #### 1 0033904 ####[address] [address] BMPon 08-14-2023 Anion gap [Moles/Vol] 9 mmol/L Normal 6-16 [facility] Comment on above: Performed By: #### 2 821325, 53462031, 6982844, 4415546 ####[facility] [address] [place] [address] Calcium [Mass/Vol] 9.2 mg/dL Normal 8.9-11.1 [facility] Comment on above: Performed By: #### 2 084356, 84296415, 9497729, 0560486 ####[place] [place] [address] Chloride [Moles/Vol] 102 mmol/L Normal 101-111 [facility] Comment on above: Performed By: #### 2 669314, 45880859, 2967535, 0340666 ####[facility] [address] [place] [address] CO2 [Moles/Vol] 33 mmol/L High 21-31 [facility] Comment on above: Performed By: #### 2 202092, 63640278, 1095166, 5545938 ####[facility] [address] [place] [address] Creatinine [Mass/Vol] 1.0 mg/dL Normal 0.5-1.3 [facility] Comment on above: Performed By: #### 2 823221, 93928578, 8303228, 2114877 ####[facility] [address] [place] [address] Glucose [Mass/Vol] 98 mg/dL Normal 55-199 [facility] Comment on above: Performed By: #### 2 666884, 70314645, 2390901, 7494329 ####[facility] [address] [place] [address] Potassium [Moles/Vol] 3.8 mmol/L Normal 3.5-5.3 [facility] Comment on above: Performed By: #### 2 532504, 88618020, 0065198, 5699498 ####[facility] [address] [place] [address] Sodium [Moles/Vol] 140 mmol/L Normal 135-145 [facility] Comment on above: Performed By: #### 2 545733, 24916266, 2779898, 1012592 ####[facility] [address] [place] [address] Urea nitrogen [Mass/Vol] 10 mg/dL Normal 5-21 [facility] Comment on above: Performed By: #### 2 131488, 30188236, 7354766, 5697327 ####[facility] [address] [place] [address] Urea nitrogen/Creatinine [Mass ratio] 10 No Units Normal 10-20 [facility] Comment on above: Performed By: #### 2 409249, 50020147, 6335869, 8672243 ####[address] [address] C Urineon 08-14-2023 Bacteria identified Cx Nom (U) Normal [facility] Comment on above: Performed By: #### 2 441204, 84898188 ####[address] [address] CBC w/ Auto Diffon 4 Basophils/100 WBC (Bld) 0.9 % Normal 0.0-2.0 [facility] Comment on above: Performed By: #### 2 425030, 68540646, 6403269, 7182975 ####[address] [address] Basophils/Leukocytes Auto (Bld) [Pure # fraction] 0.0 E9/L Normal 0.0-0.2 [facility] Comment on above: Performed By: #### 2 583249, 24877006, 7355379, 6404654 ####[address] [address] Eosinophils (Bld) [#/Vol] 0.3 E9/L Normal 0.0-0.5 [facility] Comment on above: Performed By: #### 2 454981, 70460942, 4819254, 1826098 ####[address] [address] Eosinophils/100 WBC (Bld) 5.3 % Normal 0.0-8.0 [facility] Comment on above: Performed By: #### 2 284956, 28092062, 7060037, 0685351 ####[address] [address] Erythrocyte distribution width (RBC) [Ratio] 12.8 % Normal 10.9-14.2 [facility] Comment on above: Performed By: #### 2 098065, 44420455, 5804487, 8364767 ####[address] [place] [address] Hematocrit (Bld) [Volume fraction] 39.8 % Normal 34.0-46.0 [facility] Comment on above: Performed By: #### 2 237584, 70755922, 6259412, 8017616 ####[address] [address] Hemoglobin (Bld) [Mass/Vol] 13.0 g/dL Normal 12.0-16.0 [facility] Comment on above: Performed By: #### 2 134222, 66030941, 5228144, 5112420 ####[address] [address] Lymphocytes (Bld) [#/Vol] 1.1 E9/L Normal 1.0-4.0 [facility] Comment on above: Performed By: #### 2 465131, 55216344, 7481231, 6803245 ####[address] [address] Lymphocytes/100 WBC (Bld) 23.2 % Normal 14.0-50.0 [facility] Comment on above: Performed By: #### 2 218667, 84881664, 7625531, 4172660 ####[address] [address] MCH (RBC) [Entitic mass] 28.4 pg Normal 27.0-34.0 [facility] Comment on above: Performed By: #### 2 973405, 91508284, 3797286, 0458226 ####[address] [address] MCHC (RBC) [Mass/Vol] 32.6 g/dL Normal 31.4-36.0 [facility] Comment on above: Performed By: #### 2 412731, 68124672, 7492661, 2097573 ####[address] [address] MCV (RBC) [Entitic vol] 87.3 fL Normal 80.0-100.0 [facility] Comment on above: Performed By: #### 2 517437, 19051778, 8509633, 3764185 ####[address] [address] Monocytes (Bld) [#/Vol] 0.4 E9/L Normal 0.2-1.0 [facility] Comment on above: Performed By: #### 2 273917, 52246898, 8725051, 2059218 ####[address] [address] Neutrophils (Bld) [#/Vol] 3.0 E9/L Normal 2.0-7.5 [facility] Comment on above: Performed By: #### 2 488466, 12116616, 1564419, 0700353 ####[address] [address] Neutrophils/100 WBC (Bld) 63.1 % Normal 36.0-75.0 [facility] Comment on above: Performed By: #### 2 264404, 27772852, 3989454, 3957581 ####[address] [address] Platelet mean volume (Bld) [Entitic vol] 7.1 fL Normal 6.4-10.8 [facility] Comment on above: Performed By: #### 2 953054, 79614290, 3738346, 4810213 ####[address] [address] Platelets (Bld) [#/Vol] 208.0 E9/L Normal 150.0-500. 0 [facility] Comment on above: Performed By: #### 2 879872, 24745235, 7549062, 1886790 ####[address] [address] RBC (Bld) [#/Vol] 4.6 E12/L Normal 4.3-5.9 [facility] Comment on above: Performed By: #### 2 937426, 91895936, 2230559, 9132127 ####[facility] [address] [place] [address] WBC corrected for nucl RBC Auto (Bld) [#/Vol] 4.8 E9/L Normal 4.0-11.0 [facility] Comment on above: Performed By: #### 2 254370, 26867359, 8707359, 6911031 ####[facility] [address] [place] [address] CHEMISTRYOrdered By: SYSTEM SYSTEM on 08-14-2023 Albumin [Mass/Vol] 3.8 g/dL Normal 3.3 - 5.0 gm/dL [facility] Albumin/Globulin [Mass ratio] 1.5 {ratio} Normal 1.1 - 2.2 [facility] ALP [Catalytic activity/Vol] 79 [iU]/d Normal 21 - 98 Int._Unit/ L [facility] ALT No additional P-5'-P [Catalytic activity/Vol] 10 [iU]/d Normal 6 - 46 Int._Unit/ L [facility] Anion gap [Moles/Vol] 9 mmol/L Normal 6 - 16 mEq/L [facility] AST [Catalytic activity/Vol] 18 [iU]/d Normal 5 - 43 Int._Unit/ L [facility] Bilirubin [Mass/Vol] 0.5 mg/dL Normal 0.0 - 1 .1 mg/dL [facility] Bilirubin.direct [Mass/Vol] 0.1 mg/dL Normal 0.0 - 0.4 mg/dL [facility] Bilirubin.indirect [Mass or moles/Vol] 0.4 mg/dL Normal 0.1 - 0.9 mg/dL [facility] Calcium [Mass/Vol] 9.2 mg/dL Normal 8.9 - 11. 1 mg/dL [facility] Chloride [Moles/Vol] 102 mmol/L Normal 101 - 1 11 mmol/L [facility] CO2 [Moles/Vol] 33 mmol/L High 21 - 31 mmol/L [facility] Creatinine [Mass/Vol] 1.0 mg/dL Normal 0.5 - 1.3 mg/dL [facility] eGFR 59 mL/min/1.73 m2 Normal >=59mL/min /1.73 m2 [facility] Globulin (S) [Mass/Vol] 2.6 g/dL Normal 1.4 - 4.0 gm/dL [facility] Glucose [Mass/Vol] 98 mg/dL Normal 55 - 199 mg/dL [facility] Potassium [Moles/Vol] 3.8 mmol/L Normal 3.5 - 5.3 mmol/L [facility] Protein [Mass/Vol] 6.4 g/dL Normal 6.0 - 7.8 gm/dL [facility] Sodium [Moles/Vol] 140 mmol/L Normal 135 - 145 mmol/L [facility] Urea nitrogen [Mass/Vol] 10 mg/dL Normal 5 - 21 mg/dL [facility] Urea nitrogen/Creatinine [Mass ratio] 10 mg/mg Normal 10 - 20 [facility] Consent for Treatmenton 07-25 Consent for Treatment [id number]#1.00TIFF Normal [facility] Discharge Instructionson Discharge Instructions [id number]#[id number] Normal [facility] ED Clinical Summaryon 2023 ED Clinical Summary Normal [facility] ED Note-Physicianon 08-14-19 ED Note-Physician Normal [facility] Comment on above: Result Comment: Elec tronically Signed By: Johny Willson DO.br\Date and Time Signed: 08/14/23 11:20 EDT ED Patient Education Noteon 08-14-2023 ED Patient Education Note Normal [facility] ED Patient Summaryon 024 ED Patient Summary Normal [facility] HEMATOLOGYOrdered By: SYSTEM SYSTEM on 08-14-2023 Basophils/100 WBC (Bld) 0.9 % Normal 0.0 - 2.0 % [facility] Basophils/Leukocytes Auto (Bld) [Pure # fraction] 0.0 E9/L Normal 0.0 - 0.2 E9/L [facility] Eosinophils (Bld) [#/Vol] 0.3 E9/L Normal 0.0 - 0.5 E9/L [facility] Eosinophils/100 WBC (Bld) 5.3 % Normal 0.0 - 8.0 % [facility] Erythrocyte distribution width (RBC) [Ratio] 12.8 % Normal 10.9 - 14.2 % [facility] Hematocrit (Bld) [Volume fraction] 39.8 % Normal 34.0 - 46.0 % [facility] Hemoglobin (Bld) [Mass/Vol] 13.0 g/dL Normal 12.0 - 16.0 gm/dL [facility] Lymphocytes (Bld) [#/Vol] 1.1 E9/L Normal 1.0 - 4.0 E9/L [facility] Lymphocytes/100 WBC (Bld) 23.2 % Normal 14.0 - 50.0 % [facility] MCH (RBC) [Entitic mass] 28.4 pg Normal 27.0 - 34.0 pg [facility] MCHC (RBC) [Mass/Vol] 32.6 g/dL Normal 31.4 - 36.0 gm/dL [facility] MCV (RBC) [Entitic vol] 87.3 fL Normal 80.0 - 100.0 fL [facility] Monocytes (Bld) [#/Vol] 0.4 E9/L Normal 0.2 - 1.0 E9/L [facility] Monocytes/100 WBC (Bld) 7.5 % Normal 4.0 - 14.0 % [facility] Neutrophils (Bld) [#/Vol] 3.0 E9/L Normal 2.0 - 7.5 E9/L [facility] Neutrophils/100 WBC (Bld) 63.1 % Normal 36.0 - 75.0 % [facility] Platelet mean volume (Bld) [Entitic vol] 7.1 fL Normal 6.4 - 10.8 fL [facility] Platelets (Bld) [#/Vol] 208.0 E9/L Normal 150.0 - 500.0 E9/L [facility] RBC (Bld) [#/Vol] 4.6 E12/L Normal 4.3 - 5.9 E12/L [facility] WBC corrected for nucl RBC Auto (Bld) [#/Vol] 4.8 E9/L Normal 4.0 - 11.0 E9/L [facility] Hep Func Panelon 08-14-2023 Albumin [Mass/Vol] 3.8 g/dL Normal 3.3-5.0 [facility] Comment on above: Performed By: #### 2 112991, 14050228, 1744160, 8520377 ####[address] [address] Albumin/Globulin (S) [Mass conc ratio] 1.5 Normal 1.1-2.2 [facility] Comment on above: Performed By: #### 2 069499, 56680133, 4405394, 7951501 ####[address] [address] ALP [Catalytic activity/Vol] 79 Int._Unit/L Normal 21-98 [facility] Comment on above: Performed By: #### 2 847541, 71936673, 9685074, 5317370 ####[address] [address] ALT No additional P-5'-P [Catalytic activity/Vol] 10 Int._Unit/L Normal 6-46 [facility] Comment on above: Performed By: #### 2 967371, 87810061, 5176683, 8648520 ####[place] [address]457 AST [Catalytic activity/Vol] 18 Int._Unit/L Normal 5-43 [facility] Comment on above: Performed By: #### 2 388681, 36419591, 2306533, 9072671 ####[facility] [address] [place] [address] Bilirubin [Mass/Vol] 0.5 mg/dL Normal 0.0-1.1 [facility] Comment on above: Performed By: #### 2 822538, 44039412, 4257478, 4967528 ####[facility] [address] [place] [address] Bilirubin.direct [Mass/Vol] 0.1 mg/dL Normal 0.0-0.4 [facility] Comment on above: Performed By: #### 2 295861, 10438449, 4446600, 8013987 ####[facility] [address] [place] [address] Bilirubin.indirect [Mass or moles/Vol] 0.4 mg/dL Normal 0.1-0.9 [facility] Comment on above: Performed By: #### 2 226988, 19296284, 7372107, 8996698 ####[facility] [address] [place] [address] Globulin (S) [Mass/Vol] 2.6 g/dL Normal 1.4-4.0 [facility] Comment on above: Performed By: #### 2 009846, 37539219, 3770189, 0110993 ####[facility] [address] [place] [address] Protein [Mass/Vol] 6.4 g/dL Normal 6.0-7.8 [facility] Comment on above: Performed By: #### 2 632771, 96249197, 0758849, 6607606 ####[facility] [address] [place] [address] UA with Cult Rflxon 08-14-19 UA Spec Desc CANCELLED Invalid Interpretation Code [facility] Comment on above: Result Comment: CANC ELLED Performed By: #### 4 [id number] ####[facility] [address] [place] [address] Color (U) CANCELLED Invalid Interpretation Code >=0 [facility] Comment on above: Result Comment: Micr oscopic readings are only performed on those samples that meet specific criteria set forth by [facility]. Performed By: #### 4 [id number] ####[facility] [address] [place] [address] Ketones Ql (U) CANCELLED Invalid Interpretation Code [facility] Comment on above: Performed By: #### 4 [id number] ####[facility] [address] [place] [address] UA Blood CANCELLED Invalid Interpretation Code [facility] Comment on above: Performed By: #### 4 390403661 ####[facility] [address] [place] [address] UA Bili CANCELLED Invalid Interpretation Code [facility] Comment on above: Performed By: #### 4 [id number] ####[facility] [address] [place] [address] UA Clarity CANCELLED Invalid Interpretation Code [facility] Comment on above: Performed By: #### 4 [id number] ####[facility] [address] [place] [address] UA Glucose CANCELLED Invalid Interpretation Code [facility] Comment on above: Performed By: #### 4 [id number] ####[facility] [address] [place] [address] UA Leuk Est CANCELLED Invalid Interpretation Code [facility] Comment on above: Performed By: #### 4 [id number] ####[facility] [address] [place] [address] UA Nitrite CANCELLED Invalid Interpretation Code [facility] Comment on above: Performed By: #### 4 [id number] ####[facility] [address] [place] [address] UA pH CANCELLED Invalid Interpretation Code 5.0-9.0 [facility] Comment on above: Performed By: #### 4 [id number] ####[facility] [address] [place] [address] UA Protein CANCELLED Invalid Interpretation Code [facility] Comment on above: Performed By: #### 4 [id number] ####[facility] [address] [place] [address] UA Spec Grav CANCELLED Invalid Interpretation Code 1.005-1.03 0 [facility] Comment on above: Performed By: #### 4 [id number] ####[facility] [address] [place] [address] UA Urobilinogen CANCELLED Invalid Interpretation Code [facility] Comment on above: Performed By: #### 4 [id number] ####[facility] [address] [place] [address] URINALYSISOrdered By: Lilibeth Farrell on 08-14-2023 Color (U) CANCELLED Invalid Interpretation Code >=0 [facility] UA Auto SS Comment on above: Interpretive Data: M icroscopic readings are only performed on those samples that meet specific criteria set forth by [facility]. Ketones Ql (U) CANCELLED Invalid Interpretation Code [facility] UA Auto SS UA Bili CANCELLED Invalid Interpretation Code [facility] UA Auto SS UA Blood CANCELLED Invalid Interpretation Code [facility] UA Auto SS UA Clarity CANCELLED Invalid Interpretation Code [facility] UA Auto SS UA Glucose CANCELLED Invalid Interpretation Code [facility] UA Auto SS UA Leuk Est CANCELLED Invalid Interpretation Code [facility] UA Auto SS UA Nitrite CANCELLED Invalid Interpretation Code [facility] UA Auto SS UA pH CANCELLED Invalid Interpretation Code 5.0 - 9.0 [facility] UA Auto SS UA Protein CANCELLED Invalid Interpretation Code [facility] UA Auto SS UA Spec Grav CANCELLED Invalid Interpretation Code 1.005 - 1.030 [facility] UA Auto SS UA Urobilinogen CANCELLED Invalid Interpretation Code [facility] UA Auto SS Bilirubin Ql (U) Negative (08/14/23 10:16 AM) Normal Negative [facility] UA Auto SS Clarity (U) Clear (08/14/23 10:16 AM) Normal Clear [facility] UA Auto SS Color (U) STRAW Invalid Interpretation Code [facility] UA Auto SS Epithelial cells.squamous LM.HPF (Urine sed) [#/Area] 0-2 /HPF Normal 0-2/HPF [facility] UA Auto SS Glucose Test strip (U) [Mass/Vol] Negative (08/14/23 10:16 AM) Normal Negative [facility] UA Auto SS Hemoglobin Ql (U) Negative (08/14/23 10:16 AM) Normal Negative [facility] UA Auto SS Ketones (U) [Mass/Vol] Negative (08/14/23 10:16 AM) Normal Negative [facility] UA Auto SS Ord.plasma/Ord .RBC (Bld) [Mass ratio] 0-3 /HPF Normal 0-3/HPF [facility] UA Auto SS Nitrite Ql (U) Negative (08/14/23 10:16 AM) Normal Negative [facility] UA Auto SS pH (U) 8.0 *NA* (08/14/23 10:16 AM) Invalid Interpretation Code 5.0 - 9.0 [facility] UA Auto SS Protein (U) [Mass/Vol] Negative (08/14/23 10:16 AM) Normal Negative [facility] UA Auto SS Specific gravity (U) [Rel density] 1.025 *NA* (08/14/23 10:16 AM) Invalid Interpretation Code 1.005 - 1.030 [facility] UA Auto SS UA Spec Desc Mcdonough (08/14/23 10:16 AM) Normal [facility] UA Auto SS Urobilinogen Qn (U) 0.5083270 {Rolan'U}/dL Normal 0.0 - 1.0 EU/dL [facility] UA Auto SS WBC Auto Ql (U) Negative (08/14/23 10:16 AM) Normal Negative [facility] UA Auto SS WBC LM.HPF (Urine sed) [#/Area] 0-5 /HPF Normal 0-5/HPF [facility] UA Auto SS URINALYSISOrdered By: Johny Willson on 08-14-2023 UA Spec Desc CANCELLED Invalid Interpretation Code [facility] UA Auto SS Work Phone: Comment on above: Result Comment: MONA MONTALVO eGFRon 08-14-2023 eGFR 59 mL/min/1.73 m2 Normal >=59 [facility] Comment on above: Order Comment: Order added by Discern Expert. Performed By: #### 2 663155, 75799710, 7957934, 7361207 ####[facility] [address] [place] [address] Capillary Glucose POCon 07-25 Glucose [Mass/Vol] 145 mg/dL High 55-99 [facility] Comment on above: Performed By: #### 2 [id number] ####[facility] [address] [place] [address] Consent for Treatmenton 07-25 Consent for Treatment [id number]#[id number] Normal [facility] Discharge Instructionson Discharge Instructions [id number] Normal [facility] ED Clinical Summaryon 2023 ED Clinical Summary Normal [facility] ED Note-Physicianon 08-13-19 ED Note-Physician Normal [facility] Comment on above: Result Comment: Elec tronically Signed By: Mati Taylor DO\.br\Date and Time Signed: 08/13/23 21:29 EDT ED Patient Education Noteon 08-13-2023 ED Patient Education Note Normal [facility] ED Patient Summaryon 024 ED Patient Summary Normal [facility] Pre-Arrival Noteon 4 Pre-Arrival Note Normal [facility] C Urineon 08-12-2023 Bacteria identified Cx Nom (U) Normal [facility] Comment on above: Performed By: #### 1 [id number], [id number] ####[facility] [address] [place] [address] Consent for Treatmenton 07-24 Consent for Treatment [id number]#[id number] Normal [facility] Discharge Instructionson Discharge Instructions [id number]#[id number] Normal [facility] ED Clinical Summaryon 2023 ED Clinical Summary Normal [facility] ED Note-Physicianon 08-12-19 ED Note-Physician Normal [facility] Comment on above: Result Comment: Elec tronically Signed By: Deborah Talavera PA-C\.br\Date and Time Signed: 08/12/23 21:34 EDT\.br\Electronically Co-Signed By: Mati Taylor DO.br\Date and Time Co-Signed: 08/12/23 23:03 EDT ED Patient Education Noteon 08-12-2023 ED Patient Education Note Normal [facility] ED Patient Summaryon 024 ED Patient Summary Normal [facility] Pre-Arrival Noteon 4 Pre-Arrival Note Normal [facility] UA With Cult Reflexon 2023 Bacteria LM Ql (Urine sed) TRACE Normal Trace [facility] Comment on above: Performed By: #### 2 078580, [id number] ####[facility] [address] [place] [address] Bilirubin Ql (U) Negative Normal Negative [facility] Comment on above: Performed By: #### 2 056138, 64008430 ####[address] [place] [address] Clarity (U) CLEAR Normal Clear [facility] Comment on above: Performed By: #### 2 630721, [id number] ####[address] [address] Color (U) YELLOW Normal Yellow [facility] Comment on above: Performed By: #### 2 910784, 15028523 ####[address] [address] Epithelial cells.squamous LM.HPF (Urine sed) [#/Area] 0-2 Normal 0-2 [facility] Comment on above: Performed By: #### 2 102170, 28176837 ####[address] [address] Glucose Test strip (U) [Mass/Vol] Negative Normal Negative [facility] Comment on above: Performed By: #### 2 937360, 02407070 ####[address] [address] Hemoglobin Ql (U) Negative Normal Negative [facility] Comment on above: Performed By: #### 2 493832, 78090882 ####[address] [address] Ketones (U) [Mass/Vol] Negative Normal Negative [facility] Comment on above: Performed By: #### 2 741074, 65328791 ####[address] [address] Ord.plasma/Ord .RBC (Bld) [Mass ratio] 0-3 Normal 0-3 [facility] Comment on above: Performed By: #### 2 591339, 80639827 ####[place] [address] [address] Nitrite Ql (U) Negative Normal Negative [facility] Comment on above: Performed By: #### 2 027277, 47799838 ####[address] [address] pH (U) 8.0 [pH] Invalid Interpretation Code 5.0-9.0 [facility] Comment on above: Performed By: #### 2 964113, 26441053 ####[address] [address] Protein (U) [Mass/Vol] TRACE Abnormal Negative [facility] Comment on above: Performed By: #### 2 296289, 99131036 ####[address] [address] Specific gravity (U) [Rel density] 1.020 Invalid Interpretation Code 1.005-1.03 0 [facility] Comment on above: Performed By: #### 2 295684, 69892979 ####[address] [address] Type of Urine collection method Mcdonough Normal [facility] Comment on above: Performed By: #### 2 733450, 36541057 ####[address] [address] Urobilinogen Qn (U) 0.2 {Rolan'U}/dL Normal 0.0-1.0 [facility] Comment on above: Performed By: #### 2 529257, 68807036 ####[address] [address] WBC Auto Ql (U) 1+ Abnormal Negative [facility] Comment on above: Performed By: #### 2 866539, 34826541 ####[address] [address] WBC LM.HPF (Urine sed) [#/Area] 6-15 Abnormal 0-5 [facility] Comment on above: Performed By: #### 2 002294, 01086908 ####[facility] [address] [place] [address] URINALYSISOrdered By: Luis Trotter on 08-12-2023 Bacteria LM Ql (Urine sed) Trace /HPF Normal Trace/HPF [facility] UA Auto SS Bilirubin Ql (U) Negative (08/12/23 7:41 PM) Normal Negative [facility] UA Auto SS Clarity (U) Clear (08/12/23 7:41 PM) Normal Clear [facility] UA Auto SS Color (U) Yellow (08/12/23 7:41 PM) Normal Yellow [facility] UA Auto SS Epithelial cells.squamous LM.HPF (Urine sed) [#/Area] 0-2 /HPF Normal 0-2/HPF [facility] UA Auto SS Glucose Test strip (U) [Mass/Vol] Negative (08/12/23 7:41 PM) Normal Negative [facility] UA Auto SS Hemoglobin Ql (U) Negative (08/12/23 7:41 PM) Normal Negative [facility] UA Auto SS Ketones (U) [Mass/Vol] Negative (08/12/23 7:41 PM) Normal Negative [facility] UA Auto SS Ord.plasma/Ord .RBC (Bld) [Mass ratio] 0-3 /HPF Normal 0-3/HPF [facility] UA Auto SS Nitrite Ql (U) Negative (08/12/23 7:41 PM) Normal Negative [facility] UA Auto SS pH (U) 8.0 *NA* (08/12/23 7:41 PM) Invalid Interpretation Code 5.0 - 9.0 [facility] UA Auto SS Protein (U) [Mass/Vol] Trace *ABN* (08/12/23 7:41 PM) Invalid Interpretation Code Negative [facility] UA Auto SS Specific gravity (U) [Rel density] 1.020 *NA* (08/12/23 7:41 PM) Invalid Interpretation Code 1.005 - 1.030 [facility] UA Auto SS UA Spec Desc Mcdonough (08/12/23 7:41 PM) Normal [facility] UA Auto SS Urobilinogen Qn (U) 0.4312561 {Rolan'U}/dL Normal 0.0 - 1.0 EU/dL [facility] UA Auto SS WBC Auto Ql (U) 1+ *ABN* (08/12/23 7:41 PM) Invalid Interpretation Code Negative [facility] UA Auto SS WBC LM.HPF (Urine sed) [#/Area] 6-15 /HPF Invalid Interpretation Code 0-5/HPF [facility] UA Auto SS BMPon 08-10-2023 Anion gap [Moles/Vol] 10 mmol/L Normal 6-16 [facility] Comment on above: Performed By: #### 2 738489, 19702936, 7601414, 0398871, 7834302 ####[facility] [address] [place] [address] Calcium [Mass/Vol] 9.1 mg/dL Normal 8.9-11.1 [facility] Comment on above: Performed By: #### 2 831304, 35106527, 4171708, 0303027, 8405711 ####[facility] [address] [place] [address] Chloride [Moles/Vol] 104 mmol/L Normal 101-111 [facility] Comment on above: Performed By: #### 2 968421, 50212485, 4927529, 7826623, 2992481 ####[facility] [address] [place] [address] CO2 [Moles/Vol] 30 mmol/L Normal 21-31 [facility] Comment on above: Performed By: #### 2 753136, 31256587, 2876167, 4964474, 4344994 ####[facility] [address] [place] [address] Creatinine [Mass/Vol] 1.1 mg/dL Normal 0.5-1.3 [facility] Comment on above: Performed By: #### 2 317388, 44160828, 3486919, 3693333, 9014023 ####[facility] [address] [place] [address] Glucose [Mass/Vol] 129 mg/dL Normal 55-199 [facility] Comment on above: Performed By: #### 2 092687, 12781352, 9455863, 3029929, 3656992 ####[facility] [address] [place] [address] Potassium [Moles/Vol] 3.2 mmol/L Low 3.5-5.3 [facility] Comment on above: Performed By: #### 2 549974, 10047027, 1950495, 5479587, 2496380 ####[facility] [address] [place] [address] Sodium [Moles/Vol] 141 mmol/L Normal 135-145 [facility] Comment on above: Performed By: #### 2 941897, 10175039, 9441983, 9127804, 0582497 ####[facility] [address] [place] [address] Urea nitrogen [Mass/Vol] 6 mg/dL Normal 5-21 [facility] Comment on above: Performed By: #### 2 251077, 80648766, 1685219, 2678170, 2084156 ####[facility] [address] [place] [address] Urea nitrogen/Creatinine [Mass ratio] 6 No Units Low 10-20 [facility] Comment on above: Performed By: #### 2 151382, 33889756, 5066150, 0881205, 7379799 ####[facility] [address] [place] [address] C Urineon 08-10-2023 Bacteria identified Cx Nom (U) Normal [facility] Comment on above: Performed By: #### 1 8821632, 3691637 ####[facility] [address] [place] [address] Discharge Instructionson Discharge Instructions [id number]#[id number] Normal [facility] ED Clinical Summaryon 2023 ED Clinical Summary Normal [facility] ED Note-Physicianon 08-10-19 ED Note-Physician Normal [facility] Comment on above: Result Comment: Elec tronically Signed By: Santiago Harrington DO\.br\Date and Time Signed: 08/10/23 00:34 EDT ED Patient Education Noteon 08-10-2023 ED Patient Education Note Normal [facility] ED Patient Summaryon 024 ED Patient Summary Normal [facility] Hep Func Panelon 08-10-2023 Albumin [Mass/Vol] 4.3 g/dL Normal 3.3-5.0 [facility] Comment on above: Performed By: #### 2 886641, 82163168, 5454109, 0683628, 0824614 ####[facility] [address] [place] [address] Albumin/Globulin (S) [Mass conc ratio] 2.0 Normal 1.1-2.2 [facility] Comment on above: Performed By: #### 2 585551, 17861384, 0870899, 5226840, 8442090 ####[facility] [address] [place] [address] ALP [Catalytic activity/Vol] 93 Int._Unit/L Normal 21-98 [facility] Comment on above: Performed By: #### 2 540794, 04894907, 4296850, 0493142, 9729941 ####[facility] [address] [place] [address] ALT No additional P-5'-P [Catalytic activity/Vol] 12 Int._Unit/L Normal 6-46 [facility] Comment on above: Performed By: #### 2 080866, 04528427, 9958630, 0818284, 7516330 ####[facility] [address] [place] [address] AST [Catalytic activity/Vol] 25 Int._Unit/L Normal 5-43 [facility] Comment on above: Performed By: #### 2 272251, 58161103, 9452102, 9894922, 3644777 ####[facility] [address] [place] [address] Bilirubin [Mass/Vol] 0.3 mg/dL Normal 0.0-1.1 [facility] Comment on above: Performed By: #### 2 603582, 51555755, 5563605, 0424496, 5477815 ####[facility] [address] [place] [address] Bilirubin.direct [Mass/Vol] 0.1 mg/dL Normal 0.0-0.4 [facility] Comment on above: Performed By: #### 2 525737, 01919759, 3075114, 8326874, 6409517 ####[address] [place] [address] Bilirubin.indirect [Mass or moles/Vol] 0.2 mg/dL Normal 0.1-0.9 [facility] Comment on above: Performed By: #### 2 347948, 48890531, 4151526, 7259976, 9414374 ####[address] [address] Globulin (S) [Mass/Vol] 2.2 g/dL Normal 1.4-4.0 [facility] Comment on above: Performed By: #### 2 680710, 54196743, 4724548, 6560462, 8523129 ####[address] [address] Protein [Mass/Vol] 6.5 g/dL Normal 6.0-7.8 [facility] Comment on above: Performed By: #### 2 594581, 37713659, 3028879, 1203137, 4288080 ####[address] [address] Lipase Levelon 08-10-2023 Lipase [Catalytic activity/Vol] 12 U/L Low 13-58 [facility] Comment on above: Performed By: #### 2 033276, 53853385, 4797432, 6798228, 0420976 ####[address] [address] UA With Cult Reflexon 2023 Bacteria LM Ql (Urine sed) TRACE Normal Trace [facility] Comment on above: Performed By: #### 1 4661282, 9838658 ####[facility] [address] [place] [address] Bilirubin Ql (U) Negative Normal Negative [facility] Comment on above: Performed By: #### 1 2229178, 0544687 ####[address] [address] Clarity (U) SL CLOUDY Invalid Interpretation Code [facility] Comment on above: Performed By: #### 1 3757011, 1692802 ####[address] [address] Color (U) STRAW Invalid Interpretation Code [facility] Comment on above: Performed By: #### 1 9678603, 6606922 ####[address] [address] Epithelial cells.squamous LM.HPF (Urine sed) [#/Area] 5-8 Normal 0-2 [facility] Comment on above: Performed By: #### 1 5012910, 6293583 ####[address] Glucose Test strip (U) [Mass/Vol] Negative Normal Negative [facility] Comment on above: Performed By: #### 1 5529520, 0148890 ####[address] [address] Hemoglobin Ql (U) TRACE Abnormal Negative [facility] Comment on above: Performed By: #### 1 4112984, 4663622 ####[address] [address] Ketones (U) [Mass/Vol] Negative Normal Negative [facility] Comment on above: Performed By: #### 1 5399815, 2072722 ####[address] [address] Ord.plasma/Ord .RBC (Bld) [Mass ratio] 4-20 Normal 0-3 [facility] Comment on above: Performed By: #### 1 5240192, 9918105 ####[address] [address] Nitrite Ql (U) Negative Normal Negative [facility] Comment on above: Performed By: #### 1 5505783, 6481039 ####[address] [address] pH (U) 6.0 [pH] Invalid Interpretation Code 5.0-9.0 [facility] Comment on above: Performed By: #### 1 1622503, 6975016 ####[address] [address] Protein (U) [Mass/Vol] Negative Normal Negative [facility] Comment on above: Performed By: #### 1 1380861, 5414002 ####[address] [address] Specific gravity (U) [Rel density] 1.015 Invalid Interpretation Code 1.005-1.03 0 [facility] Comment on above: Performed By: #### 1 9809690, 4417535 ####[address] [address] Type of Urine collection method Clean Catch Normal [facility] Comment on above: Performed By: #### 1 4759653, 1188650 ####[address] Urobilinogen Qn (U) 0.2 {Rolan'U}/dL Normal 0.0-1.0 [facility] Comment on above: Performed By: #### 1 8491970, 7576452 ####[address] [address] WBC Auto Ql (U) 3+ Abnormal Negative [facility] Comment on above: Performed By: #### 1 5152131, 6516439 ####[address] [address] WBC LM.HPF (Urine sed) [#/Area] 6-15 Abnormal 0-5 [facility] Comment on above: Performed By: #### 1 1887232, 3649654 ####[address] [address] URINALYSISOrdered By: Leilani Galloway on 08-10-2023 Bacteria LM Ql (Urine sed) Trace /HPF Normal Trace/HPF [facility] UA Auto SS Bilirubin Ql (U) Negative (08/10/23 12:03 AM) Normal Negative [facility] UA Auto SS Clarity (U) SL CLOUDY Invalid Interpretation Code [facility] UA Auto SS Color (U) STRAW Invalid Interpretation Code [facility] UA Auto SS Epithelial cells.squamous LM.HPF (Urine sed) [#/Area] 5-8 /HPF Normal 0-2/HPF [facility] UA Auto SS Glucose Test strip (U) [Mass/Vol] Negative (08/10/23 12:03 AM) Normal Negative [facility] UA Auto SS Hemoglobin Ql (U) Trace *ABN* (08/10/23 12:03 AM) Invalid Interpretation Code Negative [facility] UA Auto SS Ketones (U) [Mass/Vol] Negative (08/10/23 12:03 AM) Normal Negative [facility] UA Auto SS Ord.plasma/Ord .RBC (Bld) [Mass ratio] 4-20 /HPF Normal 0-3/HPF [facility] UA Auto SS Nitrite Ql (U) Negative (08/10/23 12:03 AM) Normal Negative [facility] UA Auto SS pH (U) 6.0 *NA* (08/10/23 12:03 AM) Invalid Interpretation Code 5.0 - 9.0 [facility] UA Auto SS Protein (U) [Mass/Vol] Negative (08/10/23 12:03 AM) Normal Negative [facility] UA Auto SS Specific gravity (U) [Rel density] 1.015 *NA* (08/10/23 12:03 AM) Invalid Interpretation Code 1.005 - 1.030 [facility] UA Auto SS UA Spec Desc Clean Catch (08/10/23 12:03 AM) Normal [facility] UA Auto SS Urobilinogen Qn (U) 0.2538029 {Rolan'U}/dL Normal 0.0 - 1.0 EU/dL [facility] UA Auto SS WBC Auto Ql (U) 3+ *ABN* (08/10/23 12:03 AM) Invalid Interpretation Code Negative [facility] UA Auto SS WBC LM.HPF (Urine sed) [#/Area] 6-15 /HPF Invalid Interpretation Code 0-5/HPF [facility] UA Auto SS eGFRon 08-10-2023 eGFR 52 mL/min/1.73 m2 Low >=59 [facility] Comment on above: Order Comment: Order added by Discern Expert. Performed By: #### 2 631685, 40573847, 6497124, 3498040, 4681806 ####[address] [address] CBC w/ Auto Diffon Basophils/100 WBC (Bld) 0.6 % Normal 0.0-2.0 [facility] Comment on above: Performed By: #### 2 759397, 68942471, 8450770, 6695411, 7790291 ####[address] [address] Basophils/Leukocytes Auto (Bld) [Pure # fraction] 0.0 E9/L Normal 0.0-0.2 [facility] Comment on above: Performed By: #### 2 279337, 63991768, 6807107, 9106281, 2023548 ####[address] [address] Eosinophils (Bld) [#/Vol] 0.2 E9/L Normal 0.0-0.5 [facility] Comment on above: Performed By: #### 2 743745, 81437259, 5004143, 7424625, 0547575 ####[address] [address] Eosinophils/100 WBC (Bld) 3.2 % Normal 0.0-8.0 [facility] Comment on above: Performed By: #### 2 240725, 37166970, 3235906, 7173439, 5374458 ####[address] [address] Erythrocyte distribution width (RBC) [Ratio] 12.8 % Normal 10.9-14.2 [facility] Comment on above: Performed By: #### 2 032700, 13053716, 7080780, 5459266, 9997237 ####[address] [place] [address] Hematocrit (Bld) [Volume fraction] 39.1 % Normal 34.0-46.0 [facility] Comment on above: Performed By: #### 2 471013, 48471397, 0891673, 4808475, 7591415 ####[address] [address] Hemoglobin (Bld) [Mass/Vol] 12.6 g/dL Normal 12.0-16.0 [facility] Comment on above: Performed By: #### 2 810409, 01561789, 4343016, 6619127, 9973754 ####[address] [address] Lymphocytes (Bld) [#/Vol] 1.5 E9/L Normal 1.0-4.0 [facility] Comment on above: Performed By: #### 2 823774, 68563859, 9097472, 0880505, 5100680 ####[address] [address] Lymphocytes/100 WBC (Bld) 22.7 % Normal 14.0-50.0 [facility] Comment on above: Performed By: #### 2 054380, 71364680, 8651786, 1520085, 5794915 ####[address] [address] MCH (RBC) [Entitic mass] 28.5 pg Normal 27.0-34.0 [facility] Comment on above: Performed By: #### 2 797656, 11785339, 5440753, 2217901, 8258024 ####[address] [address] MCHC (RBC) [Mass/Vol] 32.3 g/dL Normal 31.4-36.0 [facility] Comment on above: Performed By: #### 2 481908, 31270379, 9950845, 7131339, 5410760 ####[address] [address] MCV (RBC) [Entitic vol] 88.4 fL Normal 80.0-100.0 [facility] Comment on above: Performed By: #### 2 876819, 32707992, 6647194, 6329449, 6152479 ####[address] [address] Monocytes (Bld) [#/Vol] 0.6 E9/L Normal 0.2-1.0 [facility] Comment on above: Performed By: #### 2 442927, 11173296, 6285238, 9441419, 2233882 ####[address] [address] Neutrophils (Bld) [#/Vol] 4.2 E9/L Normal 2.0-7.5 [facility] Comment on above: Performed By: #### 2 395966, 69042374, 9220308, 7328087, 9013383 ####[address] [address] Neutrophils/100 WBC (Bld) 64.8 % Normal 36.0-75.0 [facility] Comment on above: Performed By: #### 2 760120, 89503925, 8921431, 5446654, 8295571 ####[address] [address] Platelet mean volume (Bld) [Entitic vol] 7.2 fL Normal 6.4-10.8 [facility] Comment on above: Performed By: #### 2 186744, 04124217, 1832590, 0991342, 5392963 ####[address] [address] Platelets (Bld) [#/Vol] 222.0 E9/L Normal 150.0-500. 0 [facility] Comment on above: Performed By: #### 2 633785, 60685820, 8254226, 0646288, 1112666 ####[address] [address] RBC (Bld) [#/Vol] 4.4 E12/L Normal 4.3-5.9 [facility] Comment on above: Performed By: #### 2 185662, 71336371, 1608354, 3329437, 2158791 ####[facility] [address] [place] [address] WBC corrected for nucl RBC Auto (Bld) [#/Vol] 6.4 E9/L Normal 4.0-11.0 [facility] Comment on above: Performed By: #### 2 503914, 00973821, 3810804, 1365860, 3081135 ####[facility] [address] [place] [address] CHEMISTRYOrdered By: SYSTEM SYSTEM on 08-09-2023 Albumin [Mass/Vol] 4.3 g/dL Normal 3.3 - 5.0 gm/dL [facility] Albumin/Globulin [Mass ratio] 2.0 {ratio} Normal 1.1 - 2.2 [facility] ALP [Catalytic activity/Vol] 93 [iU]/d Normal 21 - 98 Int._Unit/ L [facility] ALT No additional P-5'-P [Catalytic activity/Vol] 12 [iU]/d Normal 6 - 46 Int._Unit/ L [facility] Anion gap [Moles/Vol] 10 mmol/L Normal 6 - 16 mEq/L [facility] AST [Catalytic activity/Vol] 25 [iU]/d Normal 5 - 43 Int._Unit/ L [facility] Bilirubin [Mass/Vol] 0.3 mg/dL Normal 0.0 - 1 .1 mg/dL [facility] Bilirubin.direct [Mass/Vol] 0.1 mg/dL Normal 0.0 - 0.4 mg/dL [facility] Bilirubin.indirect [Mass or moles/Vol] 0.2 mg/dL Normal 0.1 - 0.9 mg/dL [facility] Calcium [Mass/Vol] 9.1 mg/dL Normal 8.9 - 11. 1 mg/dL [facility] Chloride [Moles/Vol] 104 mmol/L Normal 101 - 1 11 mmol/L [facility] CO2 [Moles/Vol] 30 mmol/L Normal 21 - 31 mmol/L [facility] Creatinine [Mass/Vol] 1.1 mg/dL Normal 0.5 - 1.3 mg/dL [facility] eGFR 52 mL/min/1.73 m2 Low >=59mL/min /1.73 m2 [facility] Globulin (S) [Mass/Vol] 2.2 g/dL Normal 1.4 - 4.0 gm/dL [facility] Glucose [Mass/Vol] 129 mg/dL Normal 55 - 199 mg/dL [facility] Lipase [Catalytic activity/Vol] 12 U/L Low 13 - 58 unit/L [facility] Potassium [Moles/Vol] 3.2 mmol/L Low 3.5 - 5.3 mmol/L [facility] Protein [Mass/Vol] 6.5 g/dL Normal 6.0 - 7.8 gm/dL [facility] Sodium [Moles/Vol] 141 mmol/L Normal 135 - 145 mmol/L [facility] Urea nitrogen [Mass/Vol] 6 mg/dL Normal 5 - 21 mg/dL [facility] Urea nitrogen/Creatinine [Mass ratio] 6 mg/mg Low 10 - 20 [facility] Consent for Treatmenton 07-24 Consent for Treatment [id number]#[id number] Normal [facility] HEMATOLOGYOrdered By: SYSTEM SYSTEM on 08-09-2023 Basophils/100 WBC (Bld) 0.6 % Normal 0.0 - 2.0 % [facility] Basophils/Leukocytes Auto (Bld) [Pure # fraction] 0.0 E9/L Normal 0.0 - 0.2 E9/L [facility] Eosinophils (Bld) [#/Vol] 0.2 E9/L Normal 0.0 - 0.5 E9/L [facility] Eosinophils/100 WBC (Bld) 3.2 % Normal 0.0 - 8.0 % [facility] Erythrocyte distribution width (RBC) [Ratio] 12.8 % Normal 10.9 - 14.2 % [facility] Hematocrit (Bld) [Volume fraction] 39.1 % Normal 34.0 - 46.0 % [facility] Hemoglobin (Bld) [Mass/Vol] 12.6 g/dL Normal 12.0 - 16.0 gm/dL [facility] Lymphocytes (Bld) [#/Vol] 1.5 E9/L Normal 1.0 - 4.0 E9/L [facility] Lymphocytes/100 WBC (Bld) 22.7 % Normal 14.0 - 50.0 % [facility] MCH (RBC) [Entitic mass] 28.5 pg Normal 27.0 - 34.0 pg [facility] MCHC (RBC) [Mass/Vol] 32.3 g/dL Normal 31.4 - 36.0 gm/dL [facility] MCV (RBC) [Entitic vol] 88.4 fL Normal 80.0 - 100.0 fL [facility] Monocytes (Bld) [#/Vol] 0.6 E9/L Normal 0.2 - 1.0 E9/L [facility] Monocytes/100 WBC (Bld) 8.7 % Normal 4.0 - 14.0 % [facility] Neutrophils (Bld) [#/Vol] 4.2 E9/L Normal 2.0 - 7.5 E9/L [facility] Neutrophils/100 WBC (Bld) 64.8 % Normal 36.0 - 75.0 % [facility] Platelet mean volume (Bld) [Entitic vol] 7.2 fL Normal 6.4 - 10.8 fL [facility] Platelets (Bld) [#/Vol] 222.0 E9/L Normal 150.0 - 500.0 E9/L [facility] RBC (Bld) [#/Vol] 4.4 E12/L Normal 4.3 - 5.9 E12/L [facility] WBC corrected for nucl RBC Auto (Bld) [#/Vol] 6.4 E9/L Normal 4.0 - 11.0 E9/L [facility] Pre-Arrival Noteon Pre-Arrival Note Normal [facility] ED Note-Physicianon 08-08-19 ED Note-Physician Normal [facility] Comment on above: Result Comment: Elec tronically Signed By: Sadaf BYRD, Deborah Prather.br\Date and Time Signed: 08/08/23 00:49 EDT\.br\Electronically Co-Signed By: Didier Hooks M.D.\.br\Date and Time Co-Signed: 08/08/23 07:11 EDT Consent for Treatmenton 07-24 Consent for Treatment [id number] Normal [facility] Discharge Instructionson Discharge Instructions [id number]#[id number] Normal [facility] ED Clinical Summaryon 2023 ED Clinical Summary Normal Kait mccray [facility] ED Patient Education Noteon 08-07-2023 ED Patient Education Note Normal [facility] ED Patient Summaryon 024 ED Patient Summary Normal [facility] UA With Cult Reflexon 2023 Bacteria LM Ql (Urine sed) 2+ /HPF Abnormal Trace [facility] Comment on above: Order Comment: Urina ry Catheter Insertion triggered Urinalysis With Culture Reflex order by discern. Performed By: #### 1 [id number], [id number] ####[facility] [address] [place] [address] Bilirubin Ql (U) Negative Normal Negative [facility] Comment on above: Order Comment: Urina ry Catheter Insertion triggered Urinalysis With Culture Reflex order by discern. Performed By: #### 1 [id number], [id number] ####[facility] [address] [place] [address] Clarity (U) SL CLOUDY Invalid Interpretation Code [facility] Comment on above: Order Comment: Urina ry Catheter Insertion triggered Urinalysis With Culture Reflex order by discern. Performed By: #### 1 [id number], [id number] ####[facility] [address] [place] [address] Color (U) YELLOW Normal Yellow [facility] Comment on above: Order Comment: Urina ry Catheter Insertion triggered Urinalysis With Culture Reflex order by discern. Performed By: #### 1 [id number], [id number] ####[facility] [address] [place] [address] Epithelial cells.squamous LM.HPF (Urine sed) [#/Area] 0-2 Normal 0-2 [facility] Comment on above: Order Comment: Urina ry Catheter Insertion triggered Urinalysis With Culture Reflex order by discern. Performed By: #### 1 [id number], [id number] ####[facility] [address] [place] [address] Glucose Test strip (U) [Mass/Vol] Negative Normal Negative [facility] Comment on above: Order Comment: Urina ry Catheter Insertion triggered Urinalysis With Culture Reflex order by discern. Performed By: #### 1 [id number], [id number] ####[facility] [address] [place] [address] Hemoglobin Ql (U) Negative Normal Negative [facility] Comment on above: Order Comment: Urina ry Catheter Insertion triggered Urinalysis With Culture Reflex order by discern. Performed By: #### 1 [id number], [id number] ####[address] [address] Ketones (U) [Mass/Vol] Negative Normal Negative [facility] Comment on above: Order Comment: Urina ry Catheter Insertion triggered Urinalysis With Culture Reflex order by discern. Performed By: #### 1 [id number], [id number] ####[facility] [address] [place] [address] Ord.plasma/Ord .RBC (Bld) [Mass ratio] 0-3 Normal 0-3 [facility] Comment on above: Order Comment: Urina ry Catheter Insertion triggered Urinalysis With Culture Reflex order by discern. Performed By: #### 1 [id number], [id number] ####[facility] [address] [place] [address] Mucus Ql (Urine sed) 1+ Normal [facility] Comment on above: Order Comment: Urina ry Catheter Insertion triggered Urinalysis With Culture Reflex order by discern. Performed By: #### 1 [id number], [id number] ####[facility] [address] [place] [address] Nitrite Ql (U) Negative Normal Negative [facility] Comment on above: Order Comment: Urina ry Catheter Insertion triggered Urinalysis With Culture Reflex order by discern. Performed By: #### 1 [id number], [id number] ####[address] [address] pH (U) 7.5 [pH] Invalid Interpretation Code 5.0-9.0 [facility] Comment on above: Order Comment: Urina ry Catheter Insertion triggered Urinalysis With Culture Reflex order by discern. Performed By: #### 1 [id number], [id number] ####[address] [address] Protein (U) [Mass/Vol] Negative Normal Negative [facility] Comment on above: Order Comment: Urina ry Catheter Insertion triggered Urinalysis With Culture Reflex order by discern. Performed By: #### 1 [id number], [id number] ####[address] [address] Specific gravity (U) [Rel density] 1.010 Invalid Interpretation Code 1.005-1.03 0 [facility] Comment on above: Order Comment: Urina ry Catheter Insertion triggered Urinalysis With Culture Reflex order by discern. Performed By: #### 1 [id number], [id number] ####[address] [address] Type of Urine collection method Clean Catch Normal [facility] Comment on above: Order Comment: Urina ry Catheter Insertion triggered Urinalysis With Culture Reflex order by discern. Performed By: #### 1 [id number], [id number] ####[address] [address] Urobilinogen Qn (U) 0.2 {Rolan'U}/dL Normal 0.0-1.0 [facility] Comment on above: Order Comment: Urina ry Catheter Insertion triggered Urinalysis With Culture Reflex order by discern. Performed By: #### 1 [id number], [id number] ####[address] [address] WBC Auto Ql (U) 3+ Abnormal Negative [facility] Comment on above: Order Comment: Urina ry Catheter Insertion triggered Urinalysis With Culture Reflex order by discern. Performed By: #### 1 [id number], [id number] ####[facility] [address] [place] [address] WBC LM.HPF (Urine sed) [#/Area] 6-15 Abnormal 0-5 [facility] Comment on above: Order Comment: Urina ry Catheter Insertion triggered Urinalysis With Culture Reflex order by discern. Performed By: #### 1 [id number], [id number] ####[facility] [address] [place] [address] URINALYSISOrdered By: Chelsy Lujan on 08-07-2023 Bacteria LM Ql (Urine sed) 2+ /HPF Invalid Interpretation Code Trace/HPF [facility] UA Auto SS Bilirubin Ql (U) Negative (08/07/23 3:48 PM) Normal Negative [facility] UA Auto SS Clarity (U) SL CLOUDY Invalid Interpretation Code [facility] UA Auto SS Color (U) Yellow (08/07/23 3:48 PM) Normal Yellow [facility] UA Auto SS Epithelial cells.squamous LM.HPF (Urine sed) [#/Area] 0-2 /HPF Normal 0-2/HPF [facility] UA Auto SS Glucose Test strip (U) [Mass/Vol] Negative (08/07/23 3:48 PM) Normal Negative [facility] UA Auto SS Hemoglobin Ql (U) Negative (08/07/23 3:48 PM) Normal Negative [facility] UA Auto SS Ketones (U) [Mass/Vol] Negative (08/07/23 3:48 PM) Normal Negative [facility] UA Auto SS Ord.plasma/Ord .RBC (Bld) [Mass ratio] 0-3 /HPF Normal 0-3/HPF [facility] UA Auto SS Mucus Ql (Urine sed) 1+ (08/07/23 3:48 PM) Normal [facility] UA Auto SS Nitrite Ql (U) Negative (08/07/23 3:48 PM) Normal Negative [facility] UA Auto SS pH (U) 7.5 *NA* (08/07/23 3:48 PM) Invalid Interpretation Code 5.0 - 9.0 [facility] UA Auto SS Protein (U) [Mass/Vol] Negative (08/07/23 3:48 PM) Normal Negative [facility] UA Auto SS Specific gravity (U) [Rel density] 1.010 *NA* (08/07/23 3:48 PM) Invalid Interpretation Code 1.005 - 1.030 [facility] UA Auto SS UA Spec Desc Clean Catch (08/07/23 3:48 PM) Normal [facility] UA Auto SS Urobilinogen Qn (U) 0.4176656 {Rolan'U}/dL Normal 0.0 - 1.0 EU/dL [facility] UA Auto SS WBC Auto Ql (U) 3+ *ABN* (08/07/23 3:48 PM) Invalid Interpretation Code Negative [facility] UA Auto SS WBC LM.HPF (Urine sed) [#/Area] 6-15 /HPF Invalid Interpretation Code 0-5/HPF [facility] UA Auto SS Activated partial thrombopla stin time (aPTT) in platelet poor plasma by coagulation aOrdered By: Bebe Ortiz on 07-05-2023 aPTT Coag (PPP) [Time] 31.4 s 25.1-36.5 [facility] Comment on above: A hematocrit value g reater than 55% may lead to inaccurate results in coagulation testing. Patients having hematocrit values >55% require a special collection tube for coagulation studies. Please contact the laboratory at [phone] for redraw instructions. Alanine aminotransferase [En zymatic activity/volume] in Serum or PlasmaOrdered By: Bebe Ortiz on 07-05-2023 ALT [Catalytic activity/Vol] 8 U/L Normal 7-52 [facility] Comment on above: Performed By: #### C MP, CK, HS TROP, CBC #### [address] Albumin [Mass/volume] in Ser um or Plasma by Bromocresol green (BCG) dye binding methoOrdered By: Bebe Ortiz on 07-05-2023 Albumin BCG dye [Mass/Vol] 4.4 g/dL 3.5-5.7 [facility] Alkaline phosphatase [Enzyma tic activity/volume] in Serum or PlasmaOrdered By: Bebe Ortiz on 07-05-2023 ALP [Catalytic activity/Vol] 96 U/L Normal 34-104 [facility] Comment on above: Performed By: #### C MP, CK, HS TROP, CBC #### [facility] [address] [place] [address] Amphetamine Screen Ql (U)Ord ered By: Bebe Albernguyen on 07-05-2023 Amphetamines Ql (U) Negative Negative [facility] Aspartate aminotransferase [ Enzymatic activity/volume] in Serum or PlasmaOrdered By: Bebe Ortiz on 07-05-2023 AST [Catalytic activity/Vol] 17 U/L Normal 13-39 [facility] Comment on above: Performed By: #### C MP, CK, HS TROP, CBC #### [facility] [address] [place] [address] Automated basophil %Ordered By: Bebe Albernguyen on 07-05-2023 Basophils/100 WBC (Bld) 0.7 % Normal . [facility] Comment on above: Performed By: #### C MP, CK, HS TROP, CBC #### [facility] [address] [place] [address] Automated basophil countOrde red By: Bebe Ortiz on 07-05-2023 Basophils (Bld) [#/Vol] 0.1 10*3/uL Normal 0.0-0.2 [facility] Comment on above: Result Comment: PERF ORMED BY: [place] [address] PATHOLOGIST AUDIO TECHNICIAN CORIE SILVA M.D. Performed By: #### C MP, CK, HS TROP, CBC #### [facility] [address] [place] [address] Automated blood monocyte cou ntOrdered By: Bebe Albernguyen on 07-05-2023 Monocytes (Bld) [#/Vol] 0.7 10*3/uL Normal 0.0-0.8 [facility] Comment on above: Performed By: #### C MP, CK, HS TROP, CBC #### [address] Automated eosinophil %Ordere d By: Bebe Ortiz on 07-05-2023 Eosinophils/100 WBC (Bld) 2.1 % Normal . [facility] Comment on above: Performed By: #### C MP, CK, HS TROP, CBC #### [facility] [address] Automated eosinophil countOr dered By: Bebe Ortiz on 07-05-2023 Eosinophils (Bld) [#/Vol] 0.2 10*3/uL Normal 0.0-0.45 [facility] Comment on above: Performed By: #### C MP, CK, HS TROP, CBC #### [address] Automated erythrocytes count in urine sediment (number/area)Ordered By: Bebe Ortiz on 07-05-2023 RBC Auto (Urine sed) [#/Area] 5-9 [HPF] 0-4 [facility] Automated leukocytes count i n urine sediment (number/area)Ordered By: Bebe Ortiz on 07-05-2023 WBC Auto (Urine sed) [#/Area] 50-100 [HPF] 0-4 [facility] Automated monocyte %Ordered By: Bebe Ortiz on 07-05-2023 Monocytes/100 WBC (Bld) 9.0 % Normal . [facility] Comment on above: Performed By: #### C MP, CK, HS TROP, CBC #### [address] Automated neutrophil %Ordere d By: Bebe Ortiz on 07-05-2023 Neutrophils/100 WBC (Bld) 68.6 % Normal . [facility] Comment on above: Performed By: #### C MP, CK, HS TROP, CBC #### [address] Automated urine color determ inationOrdered By: Bebe Ortiz on 07-05-2023 Color (U) Yellow Normal Yellow [facility] Comment on above: Order Comment: Name Collection Type:: Straight Catheter Performed By: #### C UU, URDS, ADDONUAPLUS #### [address] Barbiturates [Presence] in U rine by Screen methodOrdered By: Bebe Ortiz on 07-05-2023 Barbiturates Screen Ql (U) Negative Negative [facility] Benzodiazepines Screen Ql (U )Ordered By: Bebe Ortiz on 07-05-2023 Benzodiazepines Ql (U) Negative Negative [facility] Benzoylecgonine [Presence] i n Urine by Screen methodOrdered By: Bebe Ortiz on 07-05-2023 Benzoylecgonine Screen Ql (U) Negative Negative [facility] Bilirubin Test strip Ql (U)O rdered By: Bebe Ortiz on 07-05-2023 Bilirubin Ql (U) Negative Negative [facility] Bilirubin.total [Mass/volume ] in Serum or PlasmaOrdered By: Bebe Ortiz on 07-05-2023 Bilirubin [Mass/Vol] 0.5 mg/dL Normal 0.3-1.0 [facility] Comment on above: Performed By: #### C MP, CK, HS TROP, CBC #### [address] head/brain wo conon 07-05 CT head/brain wo con [place] [address] CT Scan Report Signed Patient: Maegan Dye MR#: [id number] : 1950 Acct:[id number] Age/Sex: 73 / F ADM Date: 07/05/23 Loc: ER Room: Type: [facility] ER Attending Dr: Copies to: Bebe Ortiz APRN Ordering Provider: Bebe Ortiz APRN Date of Service: 07/05/23 CT/CT head/brain wo con: altered mental status CT head/brain wo con 07/05/2023 3:59 PM SIGNS AND SYMPTOMS: altered mental status TECHNIQUE:Multi-detector CT axial slices of the brain were obtained without IV contrast. CT was performed with one or more of the following dose reduction techniques: Automated exposure control, adjustment of the mA and/or kV according to patient size, or use of iterative reconstruction technique. COMPARISON: 05/27/2022 FINDINGS: There is no shift of the midline structures, acute intracranial bleeding, mass effects, or evidence of acute ischemia. Atherosclerotic changes are noted in the intracranial segments of the internal carotid arteries. The ventricular system is normal in size. The brainstem and the cerebellum are unremarkable. The visualized intraorbital contents, the visualized paranasal sinuses, and the infratemporal soft tissues show no acute abnormality. The osseous structures in the skull base and the calvarium show no abnormality. CT/CT head/brain wo con IMPRESSION: No acute intracranial pathology. Impression dictated by: Ángel Littlejohn M.D.07/05/2023 5:14 PM Dictation Location: [place] [address] Transcribed By: YUSEF 07/05/231713 Dictated By: Ángel Littlejohn II, MD 07/05/231709 Signed By: 07/05/231713 Normal [facility] Calcium [Mass/volume] in Ser um or PlasmaOrdered By: Bebe Ortiz on 07-05-2023 Calcium [Mass/Vol] 9.7 mg/dL Normal 8.6-10.3 [facility] Comment on above: Performed By: #### C MP, CK, HS TROP, CBC #### [facility] [address] Cannabinoids [Presence] in U rine by Screen methodOrdered By: Bebe Ortiz on 07-05-2023 Cannabinoids Screen Ql (U) Negative Negative [facility] Comment on above: These are unconfirme d results and should not be used for legal purposes. Drug Cut-Off Concentration: AMPH 1000 ng/mL PHILL 200 ng/mL ROBERT 200 ng/mL COCM 300 ng/mL OP 300 ng/mL PCP 25 ng/mL THC 20 ng/mL Carbon dioxide, total [Moles /volume] in Serum or PlasmaOrdered By: Bebe Ortiz on 07-05-2023 CO2 [Moles/Vol] 29.2 mmol/L Normal 21.0-31.0 [facility] Comment on above: Performed By: #### C MP, CK, HS TROP, CBC #### [facility] [address] [place] [id number] [place] Chloride [Moles/volume] in S clarisa or PlasmaOrdered By: Bebe Ortiz on 07-05-2023 Chloride [Moles/Vol] 101 mmol/L Normal 98-107 [facility] Comment on above: Performed By: #### C MP, CK, HS TROP, CBC #### [address] Complete Blood Count Auto Di ffon 07-05-2023 Mean Corpuscular HGB Conc 32.5 g/dL Normal 32.0-35.0 [facility] Comment on above: Performed By: #### C MP, CK, HS TROP, CBC #### [address] Monocytes/100 WBC (Bld) 17.07 % Normal 0.00-20.00 [facility] Comment on above: Performed By: #### C MP, CK, HS TROP, CBC #### [address] NRBC% 0.1 /100{WBC} Normal 0-0.5 [facility] Comment on above: Performed By: #### C MP, CK, HS TROP, CBC #### [address] Comprehensive Metabolic Pane isauro 07-05-2023 Albumin [Mass/Vol] 4.4 g/dL Normal 3.5-5.7 [facility] Comment on above: Performed By: #### C MP, CK, HS TROP, CBC #### [address] Creatinine Clr Calc Pharmacy 34.02 Normal [facility] Comment on above: Result Comment: PERF ORMED BY: [place] [address] PATHOLOGIST AUDIO TECHNICIAN CORIE SILVA M.D. Performed By: #### C MP, CK, HS TROP, CBC #### [address] GFR/1.73 sq M.predicted MDRD (S/P/Bld) [Vol rate/Area] 50.736 mL/min/{1.73_m2} Normal [facility] Comment on above: Performed By: #### C MP, CK, HS TROP, CBC #### [address] Creatinine [Mass/volume] in Serum or PlasmaOrdered By: Bebe Ortiz on 07-05-2023 Creatinine [Mass/Vol] 1.13 mg/dL Normal 0.60-1.20 [facility] Comment on above: Performed By: #### C MP, CK, HS TROP, CBC #### [address] Dipstick and Microscopicon 0 07-05-2023 Appearance (U) Turbid Critically abnormal Clear [facility] Comment on above: Order Comment: Name Collection Type:: Straight Catheter Performed By: #### C UU, URDS, ADDONUAPLUS #### [address] Bacteria,Urine 2+ High None Seen [facility] Comment on above: Order Comment: Name Collection Type:: Straight Catheter Performed By: #### C UU, URDS, ADDONUAPLUS #### [address] Bilirubin,Urine Negative Normal Negative [facility] Comment on above: Order Comment: Name Collection Type:: Straight Catheter Performed By: #### C UU, URDS, ADDONUAPLUS #### [address] Glucose Ql (U) Normal Normal Normal [facility] Comment on above: Order Comment: Name Collection Type:: Straight Catheter Performed By: #### C UU, URDS, ADDONUAPLUS #### [address] Hyaline Casts,Urine 0-8 Normal 0-8 [facility] Comment on above: Order Comment: Name Collection Type:: Straight Catheter Result Comment: PERF ORMED BY: [place] [address] PATHOLOGIST AUDIO TECHNICIAN CORIE SILVA M.D. Performed By: #### C UU, URDS, ADDONUAPLUS #### [address] Ketones Ql (U) Negative Normal Negative [facility] Comment on above: Order Comment: Name Collection Type:: Straight Catheter Performed By: #### C UU, URDS, ADDONUAPLUS #### [address] Leukocyte esterase Test strip Ql (U) 4+ High Negative [facility] Comment on above: Order Comment: Name Collection Type:: Straight Catheter Performed By: #### C UU, URDS, ADDONUAPLUS #### [place] [address] [place] Nitrite,Urine Negative Normal Negative [facility] Comment on above: Order Comment: Name Collection Type:: Straight Catheter Performed By: #### C UU, URDS, ADDONUAPLUS #### [address] Occult Blood,Urine Trace High Negative [facility] Comment on above: Order Comment: Name Collection Type:: Straight Catheter Result Comment: PERF ORMED BY: [place] [address] PATHOLOGIST AUDIO TECHNICIAN CORIE SILVA M.D. Performed By: #### C UU, URDS, ADDONUAPLUS #### [address] Protein,Urine Negative Normal Negative [facility] Comment on above: Order Comment: Name Collection Type:: Straight Catheter Performed By: #### C UU, URDS, ADDONUAPLUS #### [place] [address] [place] RBC,Urine 5-9 High 0-4 [facility] Comment on above: Order Comment: Name Collection Type:: Straight Catheter Performed By: #### C UU, URDS, ADDONUAPLUS #### [address] Renal Epithelial Cells,Urine 0-1 Normal 0-1 [facility] Comment on above: Order Comment: Name Collection Type:: Straight Catheter Performed By: #### C UU, URDS, ADDONUAPLUS #### [address] Specificy [place],Urine 1.009 Normal 1.001-1.03 0 [facility] Comment on above: Order Comment: Name Collection Type:: Straight Catheter Performed By: #### C UU, URDS, ADDONUAPLUS #### [address] Squamous Epithelial Cell,Urine 10-19 High 0-2 [facility] Comment on above: Order Comment: Name Collection Type:: Straight Catheter Performed By: #### C UU, URDS, ADDONUAPLUS #### [address] Urobilinogen,Urine Normal Normal Normal [facility] Comment on above: Order Comment: Name Collection Type:: Straight Catheter Performed By: #### C UU, URDS, ADDONUAPLUS #### [address] WBC,Urine 50-100 High 0-4 [facility] Comment on above: Order Comment: Name Collection Type:: Straight Catheter Performed By: #### C UU, URDS, ADDONUAPLUS #### [address] Drug Screen,Urineon 07-05-19 24 Amphetamine Screen,Urine Negative Normal Negative [facility] Comment on above: Performed By: #### C UU, URDS, ADDONUAPLUS #### [address] Barbiturate Screen,Urine Negative Normal Negative [facility] Comment on above: Performed By: #### C UU, URDS, ADDONUAPLUS #### [address] Benzodiazepines Screen,Urine Negative Normal Negative [facility] Comment on above: Performed By: #### C UU, URDS, ADDONUAPLUS #### [address] Cannabinoid Screen,Urine Negative Normal Negative [facility] Comment on above: Result Comment: Thes e are unconfirmed results and should not be used for legal purposes. Drug Cut-Off Concentration: AMPH 1000 ng/mL PHILL 200 ng/mL ROBERT 200 ng/mL COCM 300 ng/mL OP 300 ng/mL PCP 25 ng/mL THC 20 ng/mL PERFORMED BY: [place] [address] PATHOLOGIST AUDIO TECHNICIAN CORIE SILVA M.D. Performed By: #### C UU URDS, ADDONUAPLUS #### [address] Cocaine Screen,Urine Negative Normal Negative [facility] Comment on above: Performed By: #### C UU URDS, ADDONUAPLUS #### [address] Opiate Screen,Urine Positive High Negative [facility] Comment on above: Performed By: #### C UU URDS, ADDONUAPLUS #### [address] Phencyclidine Screen,Urine Negative Normal Negative [facility] Comment on above: Performed By: #### C UU URDS, ADDONUAPLUS #### [address] ECG 12 lead ECGon 07-05-2023 ECG 12 lead ECG [facility] [place] [address] Electrocardiograph Report Signed Patient: Maegan Dye MR#: [id number] : 1950 Acct:[id number] Age/Sex: 73 / F ADM Date: 07/05/23 Loc: ER Room: Type: [facility] ER Attending Dr: Ordering Provider: Bebe Ortiz APRN Date of Service: 07/05/2303/18/1558 ECG/ECG 12 lead ECG: Altered Mental Status Copies to: Test Reason : Blood Pressure : 133/068 mmHG Vent. Rate : 082 BPM Atrial Rate : 082 BPM P-R Int : 212 ms QRS Dur : 068 ms QT Int : 368 ms P-R-T Axes : 051 040 047 degrees QTc Int : 429 ms Sinus rhythm with 1st degree AV block with occasional premature ventricular complexes Otherwise normal ECG When compared with ECG of 07-AUG-2021 23:05, premature ventricular complexes are now present Confirmed by CHANDAN KRUGER MD ([id number]) on 07/05/2023 6:28:45 PM Referred By: Electronically Signed By:CHANDAN KRUGER MD Transcribed By: MUS Signed By Chandan Kruger MD 07/05/23 1828 Normal [facility] Erythrocyte distribution wid th [Ratio] by Automated countOrdered By: Bebe Ortiz on 07-05-2023 Erythrocyte distribution width (RBC) [Ratio] 12.5 % Normal 11.9-15.3 [facility] Comment on above: Performed By: #### C MP, CK, HS TROP, CBC #### [facility] [address] Erythrocytes [#/volume] in B lood by Automated countOrdered By: Bebe Ortiz on 07-05-2023 RBC (Bld) [#/Vol] 4.70 10*6/uL Normal 3.60-5.00 [facility] Comment on above: Performed By: #### C MP, CK, HS TROP, CBC #### [facility] [address] [place] [address] [place] Glucose [Mass/volume] in Ser um or PlasmaOrdered By: Bebe Ortiz on 07-05-2023 Glucose [Mass/Vol] 111 mg/dL High 70-100 [facility] Comment on above: ADA recommended refe rence rangeRandom Glucose Reference Range is dependent on time and content of last meal. Glucose of more than 200 mg/dL in a nonstressed, ambulatory subject supports the diagnosis of Diabetes Mellitus. Result Comment: [place] om Glucose Reference Range is dependent on time and content of last meal. Glucose of more than 200 mg/dL in a nonstressed, ambulatory subject supports the diagnosis of Diabetes Mellitus. ADA recommended reference range Performed By: #### C MP, CK, HS TROP, CBC #### [facility] [address] [place] [id number] [place] Hematocrit [Volume Fraction] of Blood by Automated countOrdered By: Bebe Ortiz on 07-05-2023 Hematocrit (Bld) [Volume fraction] 41.3 % Normal 34.0-46.4 [facility] Comment on above: Performed By: #### C MP, CK, HS TROP, CBC #### [facility] [address] Hemoglobin [Mass/volume] in BloodOrdered By: Bebe Ortiz on 07-05-2023 Hemoglobin (Bld) [Mass/Vol] 13.4 g/dL Normal 11.8-15.4 [facility] Comment on above: Performed By: #### C MP, CK, HS TROP, CBC #### [facility] [address] INR in Platelet poor plasma by Coagulation assayOrdered By: Bebe Ortiz on 07-05-2023 INR Coag (PPP) [Relative time] 1.0 {INR} Normal [facility] Comment on above: INR Therapeutic Rang e A) Pre- and Peroperative OAT started two weeks before surgery. NOT HIP SURGERY: 1.5 - 2.5 HIP SURGERY: 2 - 3B) Primary and secondary prevention of venous THROMBOSIS: 2 - 3C) Active venous thrombosis, pulmonary embolismand prevention of recurrent venous thrombosis: 2 - 3D) Prevention of arterial thromboembolismincluding patients with mechanical heart valves: 3 - 4.5 Result Comment: INR Therapeutic Range A) Pre- and Peroperative OAT started two weeks before surgery. NOT HIP SURGERY: 1.5 - 2.5 HIP SURGERY: 2 - 3 B) Primary and secondary prevention of venous THROMBOSIS: 2 - 3 C) Active venous thrombosis, pulmonary embolism and prevention of recurrent venous thrombosis: 2 - 3 D) Prevention of arterial thromboembolism including patients with mechanical heart valves: 3 - 4.5 Performed By: #### C MP, CK, HS TROP, CBC #### [facility] [address] Ketones Auto test strip (U) [Mass/Vol]Ordered By: Bebe Ortiz on 07-05-2023 Ketones (U) [Mass/Vol] Negative Negative [facility] - UrinalysisOrder ed By: Bebe Ortiz on 07-05-2023 Hyaline casts LM Ql (Urine sed) 0-8 [LPF] 0-8 [facility] Leukocytes [#/volume] correc kenyatta for nucleated erythrocytes in Blood by Automated counOrdered By: Bebe Ortiz on 07-05-2023 WBC corrected for nucl RBC Auto (Bld) [#/Vol] 7.4 10*3/uL 3.8-11.6 [facility] Leukocytes [#/volume] in Blo od by Automated countOrdered By: Bebe Ortiz on 07-05-2023 WBC (Bld) [#/Vol] 7.4 10*3/uL Normal 3.8-11.6 [facility] Comment on above: Performed By: #### C MP, CK, HS TROP, CBC #### [facility] [address] [place] [address] [place] Lymphocytes [#/volume] in Bl ood by Automated countOrdered By: Bebe Ortiz on 07-05-2023 Lymphocytes (Bld) [#/Vol] 1.5 10*3/uL Normal 1.00-4.8 [facility] Comment on above: Performed By: #### C MP, CK, HS TROP, CBC #### [facility] [address] [place] [address] [place] Lymphocytes/100 leukocytes i n Blood by Automated countOrdered By: Bebe Ortiz on 07-05-2023 Lymphocytes/100 WBC (Bld) 19.6 % Normal . [facility] Comment on above: Performed By: #### C MP, CK, HS TROP, CBC #### [facility] [address] [place] [address] [place] MCH [Entitic mass] by Automa kenyatta countOrdered By: Bebe Ortiz on 07-05-2023 MCH (RBC) [Entitic mass] 28.6 pg Normal 24.7-34.3 [facility] Comment on above: Performed By: #### C MP, CK, HS TROP, CBC #### [facility] [address] [place] [address] [place] MCHC Auto (RBC) [Mass/Vol]Or dered By: Bebe Ortiz on 07-05-2023 MCHC (RBC) [Mass/Vol] 32.5 g/dL 32.0-35.0 [facility] MCV [Entitic volume] by Auto mated countOrdered By: Bebe Ortiz on 07-05-2023 MCV (RBC) [Entitic vol] 88.0 fL Normal 80-100 [facility] Comment on above: Performed By: #### C MP, CK, HS TROP, CBC #### [facility] [address] [place] [address] [place] Monocyte distribution width [Entitic volume] in Blood by AutomatedOrdered By: Bebe Ortiz on 07-05-2023 Monocyte distribution width Auto (Bld) [Entitic vol] 17.07 % 0.00-20.00 [facility] Neutrophils [#/volume] in Bl ood by Automated countOrdered By: Bebe Ortiz on 07-05-2023 Neutrophils (Bld) [#/Vol] 5.1 10*3/uL Normal 1.8-7.7 [facility] Comment on above: Performed By: #### C MP, CK, HS TROP, CBC #### [facility] [address] Nitrite Test strip Ql (U)Ord ered By: Bebe Ortiz on 07-05-2023 Nitrite Ql (U) Negative Negative [facility] No Panel InformationOrdered By: Bebe Ortiz on 07-05-2023 Estimated GFR (CKD-EPI) 50.736 mL/Min [facility] Creatinine Clearance (Chem 34.02 [facility] Nucleated erythrocytes [Pres ence] in Blood by Automated countOrdered By: Bebe Ortiz on 07-05-2023 Nucleated RBC Auto Ql (Bld) 0.1 /100{WBC} 0-0.5 [facility] Opiates [Presence] in Urine by Screen methodOrdered By: Bebe Ortiz on 07-05-2023 Opiates Screen Ql (U) Positive Negative [facility] Partial Thromboplastin Timeo n 07-05-2023 aPTT Coag (Bld) [Time] 31.4 s Normal 25.1-36.5 [facility] Comment on above: Result Comment: A he matocrit value greater than 55% may lead to inaccurate results in coagulation testing. Patients having hematocrit values >55% require a special collection tube for coagulation studies. Please contact the laboratory at [phone] for redraw instructions. PERFORMED BY: [place] [address] PATHOLOGIST AUDIO TECHNICIAN CORIE SILVA M.D. Performed By: #### C MP, CK, HS TROP, CBC #### [address] Phencyclidine Screen Ql (U)O rdered By: Bebe Ortiz on 07-05-2023 Phencyclidine Ql (U) Negative Negative [facility] Platelet mean volume [Entiti c volume] in Blood by Automated countOrdered By: Bebe Ortiz on 07-05-2023 Platelet mean volume (Bld) [Entitic vol] 7.6 fL Normal 6.3-10.7 [facility] Comment on above: Performed By: #### C MP, CK, HS TROP, CBC #### [address] Platelets [#/volume] in Bloo d by Automated countOrdered By: Bebe Ortiz on 07-05-2023 Platelets (Bld) [#/Vol] 259 10*3/uL Normal 150-450 [facility] Comment on above: Performed By: #### C MP, CK, HS TROP, CBC #### [address] Potassium [Moles/volume] in Serum or PlasmaOrdered By: Bebe Ortiz on 07-05-2023 Potassium [Moles/Vol] 3.8 mmol/L Normal 3.5-5.1 [facility] Comment on above: Performed By: #### C MP, CK, HS TROP, CBC #### [address] Protein Auto test strip (U) [Mass/Vol]Ordered By: Bebe Ortiz on 02-10-2024 Protein (U) [Mass/Vol] Negative Negative [facility] Protein [Mass/volume] in Ser um or PlasmaOrdered By: Bebe Ortiz on 07-05-2023 Protein [Mass/Vol] 7.2 g/dL Normal 6.4-8.9 [facility] Comment on above: Performed By: #### C MP, CK, HS TROP, CBC #### [address] Prothrombin time (PT)Ordered By: Bebe Ortiz on 07-05-2023 PT Coag (PPP) [Time] 11.3 s Normal 9.0-12.9 [facility] Comment on above: A hematocrit value g reater than 55% may lead to inaccurate results in coagulation testing. Patients having hematocrit values >55% require a special collection tube for coagulation studies. Please contact the laboratory at [phone] for redraw instructions. Result Comment: A he matocrit value greater than 55% may lead to inaccurate results in coagulation testing. Patients having hematocrit values >55% require a special collection tube for coagulation studies. Please contact the laboratory at [phone] for redraw instructions. Performed By: #### C MP, CK, HS TROP, CBC #### [address] Serum globulin measurement b y calculation (mass/volume)Ordered By: Bbee Ortiz on 07-05-2023 Globulin (S) [Mass/Vol] 2.8 g/dL [facility] Comment on above: Performed By: #### C MP, CK, HS TROP, CBC #### [address] Serum or plasma albumin/glob ulin mass ratioOrdered By: Bebe Ortiz on 07-05-2023 Albumin/Globulin [Mass ratio] 1.6 {ratio} [facility] Comment on above: Performed By: #### C MP, CK, HS TROP, CBC #### [address] Serum or plasma anion gap de terminationOrdered By: Bebe Ortiz on 07-05-2023 Anion gap [Moles/Vol] 9.6 mmol/L Normal 6.0-15.0 [facility] Comment on above: Performed By: #### C MP, CK, HS TROP, CBC #### [facility] [address] [place] [address] [place] Sodium [Moles/volume] in Ser um or PlasmaOrdered By: Bebe Ortiz on 07-05-2023 Sodium [Moles/Vol] 136 mmol/L Normal 136-145 [facility] Comment on above: Performed By: #### C MP, CK, HS TROP, CBC #### [facility] [address] Specific gravity Auto test s trip (U) [Rel density]Ordered By: Bebe Ortiz on 07-05-2023 Specific gravity (U) [Rel density] 1.009 1.001-1.03 0 [facility] Squamous epithelial cells de tection in urine sediment by light microscopyOrdered By: Bebe Ortiz on 07-05-2023 Epithelial cells.squamous LM Ql (Urine sed) 10-19 [HPF] 0-2 [facility] Troponin I High Sensitivityo n 07-05-2023 Troponin I High Sensitivity 2.4 pg/mL Normal 0.0-15.0 [facility] Comment on above: Result Comment: PERF ORMED BY: [place] [address] PATHOLOGIST AUDIO TECHNICIAN CORIE SILVA M.D. Performed By: #### C MP, CK, HS TROP, CBC #### [address] Troponin I.cardiac [Mass/vol ume] in Serum or Plasma by Detection limit <= 0.01 ng/Ordered By: Bebe Ortiz on 07-05-2023 Troponin I.cardiac DL <= 0.01 ng/mL [Mass/Vol] 2.4 pg/mL 0.0-15.0 [facility] Urea nitrogen [Mass/volume] in Serum or PlasmaOrdered By: Bebe Ortiz on 07-05-2023 Urea nitrogen [Mass/Vol] 14 mg/dL Normal 7-25 [facility] Comment on above: Performed By: #### C MP, CK, HS TROP, CBC #### [facility] [address] [place] [address] Urine Cultureon 07-05-2023 Bacteria identified Cx Nom (U) 75,000 colonies/ml mixed bacterial skin contaminants 2 Days PERFORMED BY: [place] [address] PATHOLOGIST AUDIO TECHNICIAN CORIE SILVA M.D. Normal [facility] Comment on above: Performed By: #### C UU, URDS, ADDONUAPLUS #### [facility] [address] [place] [address] Urine bacteria detection by automated methodOrdered By: Bebe Ortiz on 07-05-2023 Bacteria Auto Ql (U) 2+ None Seen [facility] Urine clarity by refractomet ry automatedOrdered By: Bebe Ortiz on 07-05-2023 Clarity Refractometry automated (U) Turbid Clear [facility] Urine culture routineOrdered By: Bebe Ortiz on 07-05-2023 Bacteria identified Cx Nom (U) 2 Days [facility] Urine glucose measurement by automated test strip (mass/volume)Ordered By: Bebe Ortiz on 07-05-2023 Glucose Auto test strip (U) [Mass/Vol] Normal mg/dL Normal [facility] Urine hemoglobin detection b y automated test stripOrdered By: Bebe Ortiz on 07-05-2023 Hemoglobin Auto test strip Ql (U) Trace Negative [facility] Urine leukocyte esterase det ection by automated test stripOrdered By: Bebe Ortiz on 07-05-2023 Leukocyte esterase Auto test strip Ql (U) 4+ Negative [facility] Urine pH measurement by auto mated test stripOrdered By: Bebe Ortiz on 07-05-2023 pH (U) 5.5 [pH] Normal 5.0-9.0 [facility] Comment on above: Order Comment: Name Collection Type:: Straight Catheter Performed By: #### C UU, URDS, ADDONUAPLUS #### [facility] [address] [place] [address] Urine sediment renal epithel ial cell count by microscopy (number/high power field)Ordered By: Bebe Ortiz on 07-05-2023 Epithelial cells.renal LM.HPF (Urine sed) [#/Area] 0-1 [HPF] 0-1 [facility] Urobilinogen Auto test strip (U) [Mass/Vol]Ordered By: Bebe Ortiz on 07-05-2023 Urobilinogen (U) [Mass/Vol] Normal mg/dL Normal [facility] XR chest 2V*on 07-05-2023 XR chest 2V* [facility] [place] [address] [place] [address] XRay Report Signed Patient: Maegan Dye MR#: [id number] : 1950 Acct:[id number] Age/Sex: 73 / F ADM Date: 07/05/23 Loc: ER Room: Type: [facility] ER Attending Dr: Copies to: Bebe Ortiz APRN Ordering Provider: Bebe Ortiz APRN Date of Service: 07/05/23 XR/XR chest 2V*: Altered Mental Status XR chest 2V* 07/05/2023 3:59 PM SIGNS AND SYMPTOMS: Confusion PROTOCOL: Frontal and lateral radiographs of the chest COMPARISON: 02/21/2013 FINDINGS: The trachea is midline. The heart and mediastinal structures are within normal limits. The lung parenchyma is clear. The bony thorax is intact. There is a dextro convex curvature of the thoracic spine. Degenerative changes are noted in the shoulders. There is a remote compression deformity in the midthoracic spine which is unchanged. XR/XR chest 2V* IMPRESSION: No acute cardiopulmonary pathology. Impression dictated by: Ángel Littlejohn M.D.07/05/2023 5:18 PM Dictation Location: [place] [address] Transcribed By: YUSEF 07/05/231717 Dictated By: Ángel Littlejohn II, MD 07/05/231715 Signed By: 07/05/231717 Normal [facility] CHEMISTRYOrdered By: SYSTEM SYSTEM on 06-19-2023 Albumin [Mass/Vol] 4.2 g/dL Normal 3.3 - 5.0 gm/dL [facility] Chem Albumin/Globulin [Mass ratio] 1.4 {ratio} Normal 1.1 - 2.2 [facility] Alk Phos 100 [iU]/d High 21 - 98 Int._Unit/ L [facility] Chem ALT 10 [iU]/d Normal 6 - 46 Int._Unit/ L [facility] Anion gap [Moles/Vol] 13 mmol/L Normal 6 - 16 mEq/L [facility] AST 21 [iU]/d Normal 5 - 43 Int._Unit/ L [facility] Bili Total 0.8 mg/dL Normal 0.0 - 1.1 mg/dL [facility] Calcium [Mass/Vol] 9.5 mg/dL Normal 8.9 - 11. 1 mg/dL [facility] Chloride [Moles/Vol] 100 mmol/L Low 101 - 1 11 mmol/L [facility] CO2 [Moles/Vol] 28 mmol/L Normal 21 - 31 mmol/L [facility] Creatinine [Mass/Vol] 1.1 mg/dL Normal 0.5 - 1.3 mg/dL [facility] eGFR 52 mL/min/1.73 m2 Low >=59mL/min /1.73 m2 [facility] Globulin (S) [Mass/Vol] 2.9 g/dL Normal 1.4 - 4.0 gm/dL [facility] Glucose [Mass/Vol] 95 mg/dL Normal 55 - 199 mg/dL [facility] Potassium [Moles/Vol] 3.8 mmol/L Normal 3.5 - 5.3 mmol/L [facility] Protein [Mass/Vol] 7.1 g/dL Normal 6.0 - 7.8 gm/dL [facility] Sodium [Moles/Vol] 137 mmol/L Normal 135 - 145 mmol/L [facility] Urea nitrogen [Mass/Vol] 14 mg/dL Normal 5 - 21 mg/dL [facility] Urea nitrogen/Creatinine [Mass ratio] 13 mg/mg Normal 10 - 20 [facility] CMPon 06-19-2023 Albumin [Mass/Vol] 4.2 g/dL Normal 3.3-5.0 [facility] Comment on above: Performed By: #### 2 [id number], [id number] ####[facility] [address] [place] [address] Albumin/Globulin [Mass ratio] 1.4 {ratio} Normal 1.1-2.2 [facility] Comment on above: Performed By: #### 2 [id number], [id number] ####[facility] [address] [place] [address] Alk Phos 100 Int._Unit/L High 21-98 [facility] Comment on above: Performed By: #### 2 696969, [id number] ####[facility] [address] [place] [address] ALT 10 Int._Unit/L Normal 6-46 [facility] Comment on above: Performed By: #### 2 [id number], [id number] ####[facility] [address] [place] [address] Anion gap [Moles/Vol] 13 mmol/L Normal 6-16 [facility] Comment on above: Performed By: #### 2 926356, [id number] ####[facility] [address] [place] [address] AST 21 Int._Unit/L Normal 5-43 [facility] Comment on above: Performed By: #### 2 429239, [id number] ####[facility] [address] [place] [address] Bili Total 0.8 mg/dL Normal 0.0-1.1 [facility] Comment on above: Performed By: #### 2 457414, [id number] ####[facility] [address] [place] [address] BUN/Creat Ratio 13 No Units Normal 10-20 [facility] Comment on above: Performed By: #### 2 456384, [id number] ####[facility] [address] [place] [address] Calcium [Mass/Vol] 9.5 mg/dL Normal 8.9-11.1 [facility] Comment on above: Performed By: #### 2 901480, [id number] ####[facility] [address] [place] [address] Chloride [Moles/Vol] 100 mmol/L Low 101-111 [facility] Comment on above: Performed By: #### 2 045769, [id number] ####[facility] [address] [place] [address] CO2 [Moles/Vol] 28 mmol/L Normal 21-31 [facility] Comment on above: Performed By: #### 2 755416, [id number] ####[facility] [address] [place] [address] Creatinine [Mass/Vol] 1.1 mg/dL Normal 0.5-1.3 [facility] Comment on above: Performed By: #### 2 246782, [id number] ####[facility] [address] [place] [address] Globulin (S) [Mass/Vol] 2.9 g/dL Normal 1.4-4.0 [facility] Comment on above: Performed By: #### 2 389867, [id number] ####[facility] [address] [place] [address] Glucose [Mass/Vol] 95 mg/dL Normal 55-199 [facility] Comment on above: Performed By: #### 2 900957, [id number] ####[facility] [address] [place] [address] Potassium [Moles/Vol] 3.8 mmol/L Normal 3.5-5.3 [facility] Comment on above: Performed By: #### 2 197188, [id number] ####[facility] [address] [place] [address] Protein [Mass/Vol] 7.1 g/dL Normal 6.0-7.8 [facility] Comment on above: Performed By: #### 2 487540, [id number] ####[facility] [address] [place] [address] Sodium [Moles/Vol] 137 mmol/L Normal 135-145 [facility] Comment on above: Performed By: #### 2 606448, [id number] ####[facility] [address] [place] [address] Urea nitrogen [Mass/Vol] 14 mg/dL Normal 5-21 [facility] Comment on above: Performed By: #### 2 470187, [id number] ####[facility] [address] [place] [address] Physician Orderon 06-19-2023 Physician Order [id number] Normal [facility] eGFRon 06-19-2023 eGFR 52 mL/min/1.73 m2 Low >=59 [facility] Comment on above: Order Comment: Order added by Discern Expert. Performed By: #### 2 478973, [id number] ####[facility] [address] [place] [address] ED Note-Physicianon 05-27-19 24 ED Note-Physician Normal [facility] Comment on above: Result Comment: Elec tronically Signed By: Ana Layton PA-C\.br\Date and Time Signed: 05/26/23 23:36 EST\.br\Electronically Co-Signed By: Mati Taylor DO\.br\Date and Time Co-Signed: 05/27/23 05:29 EST Consent for Treatmenton Consent for Treatment [id number] Normal [facility] Discharge Instructionson Discharge Instructions [id number] Normal [facility] ED Clinical Summaryon 2023 ED [facility] 05-[facility]-2023 ED Patient Education Note Normal [facility] ED Patient Summaryon 024 ED Patient Summary Normal [facility] UA With Cult Reflexon 2023 Bacteria LM Ql (Urine sed) TRACE Normal Trace [facility] Comment on above: Performed By: #### 1 [id number] ####[facility] [address] [place] [address] Bilirubin Ql (U) Negative Normal Negative [facility] Comment on above: Performed By: #### 1 [id number] ####[facility] [address] [place] [address] Clarity (U) CLEAR Normal Clear [facility] Comment on above: Performed By: #### 1 [id number] ####[facility] [address] [place] [address] Color (U) YELLOW Normal Yellow [facility] Comment on above: Performed By: #### 1 [id number] ####[facility] [address] [place] [address] Crystals LM Ql (Urine sed) Present Normal [facility] Comment on above: Performed By: #### 1 [id number] ####[facility] [address] [place] [address] Epithelial cells.squamous LM.HPF (Urine sed) [#/Area] 0-2 Normal 0-2 [facility] Comment on above: Performed By: #### 1 [id number] ####[facility] [address] [facility] [place] [address] Glucose Test strip (U) [Mass/Vol] Negative Normal Negative [facility] Comment on above: Performed By: #### 1 [id number] ####[facility] [address] [place] [address] Hemoglobin Ql (U) TRACE Abnormal Negative [facility] Comment on above: Performed By: #### 1 [id number] ####[facility] [address] [address] Ketones (U) [Mass/Vol] Negative Normal Negative [facility] Comment on above: Performed By: #### 1 [id number] ####[facility] [address] [place] [address] Ord.plasma/Ord .RBC (Bld) [Mass ratio] 0-3 Normal 0-3 [facility] Comment on above: Performed By: #### 1 [id number] ####[facility] [address] [place] [address] Mucus Ql (Urine sed) TRACE Normal [facility] Comment on above: Performed By: #### 1 [id number] ####[facility] [address] [place] [address] Nitrite Ql (U) Negative Normal Negative [facility] Comment on above: Performed By: #### 1 [id number] ####[address] [address] pH (U) 6.0 [pH] Invalid Interpretation Code 5.0-9.0 [facility] Comment on above: Performed By: #### 1 5580582 ####[address] [address] Protein (U) [Mass/Vol] Negative Normal Negative [facility] Comment on above: Performed By: #### 1 [id number] ####[address] [address] Specific gravity (U) [Rel density] 1.025 Invalid Interpretation Code 1.005-1.03 0 [facility] Comment on above: Performed By: #### 1 [id number] ####[address] [address] Type of Urine collection method Clean Catch Normal [facility] Comment on above: Performed By: #### 1 [id number] ####[address] [address] Urobilinogen Qn (U) 0.2 {Rolan'U}/dL Normal 0.0-1.0 [facility] Comment on above: Performed By: #### 1 [id number] ####[address] [address] WBC Auto Ql (U) Negative Normal Negative [facility] Comment on above: Performed By: #### 1 [id number] ####[facility] [address] [place] [address] WBC LM.HPF (Urine sed) [#/Area] 0-5 Normal 0-5 [facility] Comment on above: Performed By: #### 1 [id number] ####[facility] [address] [place] [address] URINALYSISOrdered By: Chelsy Lujan on 05-26-2023 Bacteria LM Ql (Urine sed) Trace /HPF Normal Trace/HPF [facility] UA Auto SS Bilirubin Ql (U) Negative (05/26/23 10:06 PM) Normal Negative [facility] UA Auto SS Clarity (U) Clear (05/26/23 10:06 PM) Normal Clear [facility] UA Auto SS Color (U) Yellow (05/26/23 10:06 PM) Normal Yellow [facility] UA Auto SS Crystals LM Ql (Urine sed) Present (05/26/23 10:06 PM) Normal [facility] UA Auto SS Epithelial cells.squamous LM.HPF (Urine sed) [#/Area] 0-2 /HPF Normal 0-2/HPF [facility] UA Auto SS Glucose Test strip (U) [Mass/Vol] Negative (05/26/23 10:06 PM) Normal Negative [facility] UA Auto SS Hemoglobin Ql (U) Trace *ABN* (05/26/23 10:06 PM) Invalid Interpretation Code Negative [facility] UA Auto SS Ketones (U) [Mass/Vol] Negative (05/26/23 10:06 PM) Normal Negative [facility] UA Auto SS Ord.plasma/Ord .RBC (Bld) [Mass ratio] 0-3 /HPF Normal 0-3/HPF [facility] UA Auto SS Mucus Ql (Urine sed) Trace (05/26/23 10:06 PM) Normal [facility] UA Auto SS Nitrite Ql (U) Negative (05/26/23 10:06 PM) Normal Negative [facility] UA Auto SS pH (U) 6.0 *NA* (05/26/23 10:06 PM) Invalid Interpretation Code 5.0 - 9.0 [facility] UA Auto SS Protein (U) [Mass/Vol] Negative (05/26/23 10:06 PM) Normal Negative [facility] UA Auto SS Specific gravity (U) [Rel density] 1.025 *NA* (05/26/23 10:06 PM) Invalid Interpretation Code 1.005 - 1.030 [facility] UA Auto SS UA Spec Desc Clean Catch (05/26/23 10:06 PM) Normal [facility] UA Auto SS Urobilinogen Qn (U) 0.4424965 {Rolan'U}/dL Normal 0.0 - 1.0 EU/dL [facility] UA Auto SS WBC Auto Ql (U) Negative (05/26/23 10:06 PM) Normal Negative [facility] UA Auto SS WBC LM.HPF (Urine sed) [#/Area] 0-5 /HPF Normal 0-5/HPF [facility] UA Auto SS C Urineon 05-06-2023 Bacteria identified Cx Nom (U) Normal [facility] Comment on above: Performed By: #### 2 [id number], [id number] ####[facility] [address] [place] [address] Consent for Treatmenton 04-25 Consent for Treatment [id number] Normal [facility] Discharge Instructionson Discharge Instructions [id number] Normal [facility] ED Clinical Summaryon 2022 ED Clinical Summary Normal [facility] ED Note-Physicianon 05-04-20 ED Note-Physician Normal [facility] Comment on above: Result Comment: Elec tronically Signed By: Malick Ho PA-C\.br\Date and Time Signed: 05/04/23 13:50 EST\.br\Electronically Co-Signed By: Johny Willson DO.br\Date and Time Co-Signed: 05/04/23 14:07 EST ED Patient Education Noteon 05-04-2023 ED Patient Education Note Normal [facility] ED Patient Summaryon 023 ED Patient Summary Normal [facility] UA With Cult Reflexon 2022 Bacteria LM Ql (Urine sed) TRACE Normal Trace [facility] Comment on above: Performed By: #### 2 656173, [id number] ####[facility] [address] [place] [address] Bilirubin Ql (U) Negative Normal Negative [facility] Comment on above: Performed By: #### 2 177009, 65407260 ####[address] [address] Clarity (U) CLEAR Normal Clear [facility] Comment on above: Performed By: #### 2 915466, 50454463 ####[address] [address] Color (U) YELLOW Normal Yellow [facility] Comment on above: Performed By: #### 2 419882, 88582741 ####[address] [address] Epithelial cells.squamous LM.HPF (Urine sed) [#/Area] 5-8 Normal 0-2 [facility] Comment on above: Performed By: #### 2 493745, 63211112 ####[place] [address]457 Glucose Test strip (U) [Mass/Vol] Negative Normal Negative [facility] Comment on above: Performed By: #### 2 140264, 59377803 ####[address] [address] Hemoglobin Ql (U) Negative Normal Negative [facility] Comment on above: Performed By: #### 2 610714, 20648083 ####[address] [address] Ketones (U) [Mass/Vol] Negative Normal Negative [facility] Comment on above: Performed By: #### 2 379714, 83576135 ####[address] [address] Ord.plasma/Ord .RBC (Bld) [Mass ratio] 0-3 Normal 0-3 [facility] Comment on above: Performed By: #### 2 835895, 08575408 ####[address] [address] Mucus Ql (Urine sed) TRACE Normal [facility] Comment on above: Performed By: #### 2 502897, 58451975 ####[address] [address] Nitrite Ql (U) Negative Normal Negative [facility] Comment on above: Performed By: #### 2 267895, 14714817 ####[address] [address] pH (U) 6.0 [pH] Invalid Interpretation Code 5.0-9.0 [facility] Comment on above: Performed By: #### 2 601968, 24242640 ####[place] [address]118457 Protein (U) [Mass/Vol] Negative Normal Negative [facility] Comment on above: Performed By: #### 2 704065, 76287601 ####[place] 5118457 Specific gravity (U) [Rel density] 1.015 Invalid Interpretation Code 1.005-1.03 0 [facility] Comment on above: Performed By: #### 2 039767, 57948548 ####[place] [address] Type of Urine collection method Clean Catch Normal [facility] Comment on above: Performed By: #### 2 011977, 65618722 ####[place] 5118457 Urobilinogen Qn (U) 1.0 {Rolan'U}/dL Normal 0.0-1.0 [facility] Comment on above: Performed By: #### 2 006751, 51039489 ####[address] [address] WBC Auto Ql (U) 2+ Abnormal Negative [facility] Comment on above: Performed By: #### 2 348798, 78860434 ####[place] 5118457 WBC LM.HPF (Urine sed) [#/Area] 0-5 Normal 0-5 [facility] Comment on above: Performed By: #### 2 915671, 17995538 ####[facility] [address] [place] [address] CHEMISTRYOrdered By: SYSTEM SYSTEM on 03-14-2023 Albumin [Mass/Vol] 3.9 g/dL Normal 3.3 - 5.0 gm/dL [facility] Albumin/Globulin [Mass ratio] 1.2 {ratio} Normal 1.1 - 2.2 [facility] ALP [Catalytic activity/Vol] 89 [iU]/d Normal 21 - 98 Int._Unit/ L [facility] ALT No additional P-5'-P [Catalytic activity/Vol] 15 [iU]/d Normal 6 - 46 Int._Unit/ L [facility] Anion gap [Moles/Vol] 8 mmol/L Normal 6 - 16 mEq/L [facility] AST [Catalytic activity/Vol] 25 [iU]/d Normal 5 - 43 Int._Unit/ L [facility] Bilirubin [Mass/Vol] 0.6 mg/dL Normal 0.0 - 1 .1 mg/dL [facility] Calcium [Mass/Vol] 9.1 mg/dL Normal 8.9 - 11. 1 mg/dL [facility] Chloride [Moles/Vol] 96 mmol/L Low 101 - 1 11 mmol/L [facility] CO2 [Moles/Vol] 30 mmol/L Normal 21 - 31 mmol/L [facility] Creatinine [Mass/Vol] 1.3 mg/dL Normal 0.5 - 1.3 mg/dL [facility] GFR/1.73 sq M.predicted among non-blacks MDRD (S/P/Bld) [Vol rate/Area] 43 mL/min/1.73 m2 Low >=59mL/min /1.73 m2 [facility] Chem S Comment on above: Interpretive Data: C hronic kidney disease could be indicated at eGFR's of less than 60 mL/min/1.73m2. Kidney failure is indicated at less than 15 mL/min/1.73m2. Globulin (S) [Mass/Vol] 3.3 g/dL Normal 1.4 - 4.0 gm/dL [facility] Remisol Glucose [Mass/Vol] 119 mg/dL Normal 55 - 199 mg/dL [facility] Remisol Comment on above: Interpretive Data: I f this glucose result represents a fasting glucose, interpretation should refer to the following reference range: 55-99 mg/dL Potassium [Moles/Vol] 4.3 mmol/L Normal 3.5 - 5.3 mmol/L [facility] Remisol Protein [Mass/Vol] 7.2 g/dL Normal 6.0 - 7.8 gm/dL [facility] Remisol Sodium [Moles/Vol] 130 mmol/L Low 135 - 145 mmol/L [facility] Remisol Urea nitrogen [Mass/Vol] 19 mg/dL Normal 5 - 21 mg/dL [facility] nitrogen/Creatinine [Mass ratio] 15 mg/mg Normal - [facility] Remisol CMPon 03-14-2023 Albumin [Mass/Vol] 3.9 g/dL Normal 3.3-5.0 [facility] Comment on above: Performed By: #### 1 [id number], 1765546 ####[facility] [address] [place] [address] Albumin/Globulin (S) [Mass conc ratio] 1.2 Normal 1.1-2.2 [facility] Comment on above: Performed By: #### 1 3631752, 7113355 ####[facility] [address] [place] [address] ALP [Catalytic activity/Vol] 89 Int._Unit/L Normal 21-98 [facility] Comment on above: Performed By: #### 1 0613788, 1772050 ####[facility] [address] [place] [address] ALT No additional P-5'-P [Catalytic activity/Vol] 15 Int._Unit/L Normal 6-46 [facility] Comment on above: Performed By: #### 1 7422008, 2845504 ####[facility] [address] [place] [address] Anion gap [Moles/Vol] 8 mmol/L Normal 6-16 [facility] Comment on above: Performed By: #### 1 5342158, 6151474 ####[place] [address] [place] [address] AST [Catalytic activity/Vol] 25 Int._Unit/L Normal 5-43 [facility] Comment on above: Performed By: #### 1 8936748, 0122046 ####[address] [address] Bilirubin [Mass/Vol] 0.6 mg/dL Normal 0.0-1.1 [facility] Comment on above: Performed By: #### 1 8252152, 7186023 ####[address] [address] Calcium [Mass/Vol] 9.1 mg/dL Normal 8.9-11.1 [facility] Comment on above: Performed By: #### 1 8517389, 1899761 ####[address] [address] Chloride [Moles/Vol] 96 mmol/L Low 101-111 [facility] Comment on above: Performed By: #### 1 9247970, 6197634 ####[address] [address] CO2 [Moles/Vol] 30 mmol/L Normal 21-31 [facility] Comment on above: Performed By: #### 1 3882936, 6084381 ####[address] [address] Creatinine [Mass/Vol] 1.3 mg/dL Normal 0.5-1.3 [facility] Comment on above: Performed By: #### 1 4680904, 7528573 ####[place] [address] [place] [address] Globulin (S) [Mass/Vol] 3.3 g/dL Normal 1.4-4.0 [facility] Comment on above: Performed By: #### 1 4033998, 0668207 ####[place] [address] [place] [address] Glucose [Mass/Vol] 119 mg/dL Normal 55-199 [facility] Comment on above: Result Comment: If t his glucose result represents a fasting glucose, interpretation should refer to the following reference range: 55-99 mg/dL Performed By: #### 1 1008584, 0412516 ####[facility] [address] [place] [address] Potassium [Moles/Vol] 4.3 mmol/L Normal 3.5-5.3 [facility] Comment on above: Performed By: #### 1 2996726, 3090150 ####[facility] [address] [place] [address] Protein [Mass/Vol] 7.2 g/dL Normal 6.0-7.8 [facility] Comment on above: Performed By: #### 1 7115940, 9029743 ####[facility] [address] [place] [address] Sodium [Moles/Vol] 130 mmol/L Low 135-145 [facility] Comment on above: Performed By: #### 1 2257134, 1525648 ####[facility] [address] [place] [address] Urea nitrogen [Mass/Vol] 19 mg/dL Normal 5-21 [facility] Comment on above: Performed By: #### 1 7237944, 5933377 ####[facility] [address] [place] [address] Urea nitrogen/Creatinine [Mass ratio] 15 No Units Normal 03-14 [facility] Comment on above: Performed By: #### 1 6005395, 3072805 ####[facility] [address] [place] [address] Consent for Treatmenton 02-24 Consent for Treatment [id number] Normal [facility] Physician Orderon 03-14-2023 Physician Order [id number] Normal [facility] eGFRon 03-14-2023 GFR/1.73 sq M.predicted among non-blacks MDRD (S/P/Bld) [Vol rate/Area] 43 mL/min/1.73 m2 Low >=59 [facility] Comment on above: Order Comment: Order added by Discern Expert. Result Comment: [employer] jadyn kidney disease could be indicated at eGFR's of less than 60 mL/min/1.73m2. Kidney failure is indicated at less than 15 mL/min/1.73m2. Performed By: #### 1 0707064, 9914202 ####[facility] [address] [place] [address] Basic Metabolic Profon 02-07 Anion gap [Moles/Vol] 5 mmol/L Low 9-17 [facility] Comment on above: Performed By: #### B MP #### [facility] [address] [place] [address] Hogshead Wrecker: Jose Mars MD BUN/CRE Ratio 18 Normal - [facility] Comment on above: Performed By: #### B MP #### [facility] [address] [place] [address] Hogshead Wrecker: Jose Mars MD Calcium [Mass/Vol] 9.4 mg/dL Normal 8.6-10.4 [facility] Comment on above: Performed By: #### B MP #### [facility] [address] [place] [address] Hogshead Wrecker: Jose Mars MD Chloride [Moles/Vol] 93 mmol/L Low 98-107 [facility] Comment on above: Performed By: #### B MP #### [facility] [address] [place] [address] Hogshead Wrecker: Jose Mars MD CO2 [Moles/Vol] 30 mmol/L Normal 20-31 [facility] Comment on above: Performed By: #### B MP #### [facility] [address] [place] [address] Hogshead Wrecker: Jose Mars MD Creatinine [Mass/Vol] 1.2 mg/dL High 0.5-0.9 [facility] Comment on above: Performed By: #### B MP #### [facility] [address] [place] [address] Hogshead Wrecker: Jose Mars MD GFR/1.73 sq M.predicted among non-blacks MDRD (S/P/Bld) [Vol rate/Area] 47 mL/min/{1.73_m2} Low >60 [facility] Comment on above: Result Comment: These results are not intended for use in patients <18 years of age. eGFR results are calculated without a race factor using the 2020 CKD-EPI equation. Careful clinical correlation is recommended, particularly when comparing to results calculated using previous equations. The CKD-EPI equation is less accurate in patients with extremes of muscle mass, extra-renal metabolism of creatine, excessive creatine ingestion, or following therapy that affects renal tubular secretion. Performed By: #### B MP #### [facility] [address] [place] [address] Hogshead Wrecker: Jose Mars MD Glucose [Mass/Vol] 109 mg/dL High 70-99 [facility] Comment on above: Performed By: #### B MP #### [facility] [address] [place] [address] Hogshead Wrecker: Jose Mars MD Potassium [Moles/Vol] 4.3 mmol/L Normal 3.7-5.3 [facility] Comment on above: Performed By: #### B MP #### [facility] [address] [place] [address] Hogshead Wrecker: Jose Mars MD Sodium [Moles/Vol] 128 mmol/L Low 135-144 [facility] Comment on above: Performed By: #### B MP #### [facility] [address] [place] [address] Hogshead Wrecker: Jose Mars MD Urea nitrogen [Mass/Vol] 22 mg/dL Normal 8-23 [facility] Comment on above: Performed By: #### B #### [facility] [address] [place] [address] Hogshead Wrecker: Jose Mars MD Basic Metabolic Panelon 01-24 Anion gap [Moles/Vol] 7 mmol/L Low 9 - 17 mmol/L [facility] Calcium [Mass/Vol] 9.8 mg/dL 8.6 - 10. 4 mg/dL [facility] Chloride [Moles/Vol] 98 mmol/L 98 - 10 7 mmol/L [facility] CO2 [Moles/Vol] 32 mmol/L High 20 - 31 mmol/L [facility] Creatinine [Mass/Vol] 1.0 mg/dL High 0.5 - 0.9 mg/dL [facility] GFR/1.73 sq M.predicted MDRD (S/P/Bld) [Vol rate/Area] 59 mL/min/{1.73_m2} Low - [facility] Comment on above: These results are not intended for use in patients <18 years of age. eGFR results are calculated without a race factor using the 2020 CKD-EPI equation. Careful clinical correlation is recommended, particularly when comparing to results calculated using previous equations. The CKD-EPI equation is less accurate in patients with extremes of muscle mass, extra-renal metabolism of creatine, excessive creatine ingestion, or following therapy that affects renal tubular secretion. Glucose [Mass/Vol] 102 mg/dL High 70 - 99 mg/dL [facility] Interpretation and review of laboratory results Abnormal [facility] Potassium [Moles/Vol] 4.1 mmol/L 3.7 - 5.3 mmol/L [facility] Sodium [Moles/Vol] 137 mmol/L 135 - 144 mmol/L [facility] Urea nitrogen [Mass/Vol] 13 mg/dL 8 - 23 mg/dL [facility] Urea nitrogen/Creatinine [Mass ratio] 13 mg/mg 9 - 20 [facility] Basic Metabolic Profon 02-03 Anion gap [Moles/Vol] 7 mmol/L Low 9-17 [facility] Comment on above: Performed By: #### B MP #### [facility] [address] [place], [place] [id number] Hogshead Wrecker: Jose Mars MD BUN/CRE Ratio 13 Normal 9-20 [facility] Comment on above: Performed By: #### B MP #### [facility] [address] [place], [place] [id number] Hogshead Wrecker: Jose Mars MD Calcium [Mass/Vol] 9.8 mg/dL Normal 8.6-10.4 [facility] Comment on above: Performed By: #### B MP #### [facility] [address] [place], [place] [id number] Hogshead Wrecker: Jose Mars MD Chloride [Moles/Vol] 98 mmol/L Normal 98-107 [facility] Comment on above: Performed By: #### B MP #### [facility] [address] [place], [place] [address]3283 Hogshead Wrecker: Jose Mars MD CO2 [Moles/Vol] 32 mmol/L High 20-31 [facility] Comment on above: Performed By: #### B MP #### [facility] [address] [place], [place] [address] Hogshead Wrecker: Jose Mars MD Creatinine [Mass/Vol] 1.0 mg/dL High 0.5-0.9 [facility] Comment on above: Performed By: #### B MP #### [facility] [address] [place], [place] [id number] Hogshead Wrecker: Jose Mars MD GFR/1.73 sq M.predicted among non-blacks MDRD (S/P/Bld) [Vol rate/Area] 59 mL/min/{1.73_m2} Low >60 [facility] Comment on above: Result Comment: These results are not intended for use in patients <18 years of age. eGFR results are calculated without a race factor using the 2020 CKD-EPI equation. Careful clinical correlation is recommended, particularly when comparing to results calculated using previous equations. The CKD-EPI equation is less accurate in patients with extremes of muscle mass, extra-renal metabolism of creatine, excessive creatine ingestion, or following therapy that affects renal tubular secretion. Performed By: #### B MP #### [facility] [address] [place] [address] [address] [place], [place] [id number] Hogshead Wrecker: Jose Mars MD Glucose [Mass/Vol] 102 mg/dL High 70-99 [facility] Comment on above: Performed By: #### B MP #### [facility] [address] [place] [address] [place] [address] Hogshead Wrecker: Jose Mars MD Potassium [Moles/Vol] 4.1 mmol/L Normal 3.7-5.3 [facility] Comment on above: Performed By: #### B MP #### [facility] [address] [place] [address] [place] [address] Hogshead Wrecker: Jose Mars MD Sodium [Moles/Vol] 137 mmol/L Normal 135-144 [facility] Comment on above: Performed By: #### B MP #### [address] [place] [address] Hogshead Wrecker: Jose Mars MD Urea nitrogen [Mass/Vol] 13 mg/dL Normal 8-23 [facility] Comment on above: Performed By: #### B MP #### [facility] [address] [place] [address] [address] [place], [place] [id number] Hogshead Wrecker: Jose Mars MD Outside Recordson 02-02-2023 Outside Records [id number]:127 Normal [facility] Transfer Documentson 023 Transfer Documents [id number]:127 Normal [facility] Acetamnphn Lvlon 02-01-2023 Acetaminophen [Mass/Vol] ug/mL Low 15-30 [facility] Comment on above: Order Comment: pt in [id number] 02/01/2023 15:26:12 EDT Performed By: #### 1 5079038, 4588091, 2234485, 3941471, 8189929, 7089251 ####[facility] [address] [place] [address] Auto Diffon 02-01-2023 Basophils/100 WBC (Bld) 3.1 % High 0.0-2.0 [facility] Comment on above: Order Comment: Order Added by Discern Expert. Performed By: #### 1 4749200, 0403356, 1558194, 1366924, 4743040, 8966566 ####[facility] [address] [place] [address] Basophils/Leukocytes Auto (Bld) [Pure # fraction] 0.2 E9/L Normal 0.0-0.2 [facility] Comment on above: Order Comment: Order Added by Discern Expert. Performed By: #### 1 3436081, 9926894, 9961040, 5316167, 2673010, 9392758 ####[facility] [address] [place] [address] Eosinophils/100 WBC (Bld) 2.3 % Normal 0.0-8.0 [facility] Comment on above: Order Comment: Order Added by Discern Expert. Performed By: #### 1 9043208, 4893929, 3539344, 9945591, 0156116, 8848417 ####[facility] [address] [place] [address] Eosinophils/Leukocytes Auto (Bld) [Pure # fraction] 0.2 E9/L Normal 0.0-0.5 [facility] Comment on above: Order Comment: Order Added by Discern Expert. Performed By: #### 1 4076979, 7029376, 7758142, 8443104, 6589178, 7132466 ####[facility] [address] [place] [address] Lymphocytes/100 WBC (Bld) 26.7 % Normal 14.0-50.0 [facility] Comment on above: Order Comment: Order Added by Discern Expert. Performed By: #### 1 3482424, 3695693, 6067591, 8860182, 0665740, 8550729 ####[facility] [address] [place] [address] Lymphocytes/Leukocytes Auto (Bld) [Pure # fraction] 1.9 E9/L Normal 1.0-4.0 [facility] Comment on above: Order Comment: Order Added by Tip Expert. Performed By: #### 1 1758172, 7464921, 7404902, 8902220, 3642960, 0137535 ####[place] [address] [place] [address] Monocytes/100 WBC (Bld) 8.7 % Normal 4.0-14.0 [facility] Comment on above: Order Comment: Order Added by Discern Expert. Performed By: #### 1 1744754, 4521829, 8044556, 3576934, 7276735, 4602562 ####[place] [address] [place] [address] Monocytes/Leukocytes Auto (Bld) [Pure # fraction] 0.6 E9/L Normal 0.2-1.0 [facility] Comment on above: Order Comment: Order Added by Discern Expert. Performed By: #### 1 7948120, 2890730, 9695666, 0859289, 8600483, 3024212 ####[facility] [address] [place] [address] Neutrophils/100 WBC (Bld) 59.2 % Normal 36.0-75.0 [facility] Comment on above: Order Comment: Order Added by Discern Expert. Performed By: #### 1 7264033, 3877025, 7069360, 7398540, 4114745, 9769464 ####[place] [address] [place] [address] Neutrophils/Leukocytes Auto (Bld) [Pure # fraction] 4.3 E9/L Normal 2.0-7.5 [facility] Comment on above: Order Comment: Order Added by Discern Expert. Performed By: #### 1 4554800, 1677541, 5878378, 7369109, 6661690, 7003249 ####[facility] [address] [place] [address] CBC w/ Auto Diffon 3 Erythrocyte distribution width (RBC) [Ratio] 13.4 % Normal 10.9-14.2 [facility] Comment on above: Order Comment: pt in [place] [address] 02/01/2023 15:26:12 EDT Performed By: #### 1 9750333, 9665558, 6527826, 5203034, 1924634, 6906451 ####[facility] [address] [place] [address] Hematocrit (Bld) [Volume fraction] 44.1 % Normal 34.0-46.0 [facility] Comment on above: Order Comment: pt in [place] [address] 02/01/2023 15:26:12 EDT Performed By: #### 1 8686201, 2864469, 1218334, 9020427, 7010906, 5232735 ####[facility] [address] [place] [address] Hemoglobin (Bld) [Mass/Vol] 14.4 g/dL Normal 12.0-16.0 [facility] Comment on above: Order Comment: pt in [place] [address] 02/01/2023 15:26:12 EDT Performed By: #### 1 4855434, 0028204, 4995358, 6088211, 6959426, 1881449 ####[facility] [address] [place] [address] MCH (RBC) [Entitic mass] 28.1 pg Normal 27.0-34.0 [facility] Comment on above: Order Comment: pt in [place] [address] 02/01/2023 15:26:12 EDT Performed By: #### 1 9090277, 5092576, 3341973, 8047343, 7355319, 0489279 ####[facility] [address] [place] [address] MCHC (RBC) [Mass/Vol] 32.8 g/dL Normal 31.4-36.0 [facility] Comment on above: Order Comment: pt in [place] [address] 02/01/2023 15:26:12 EDT Performed By: #### 1 0294625, 0438624, 2488124, 2141141, 8362410, 3841127 ####[facility] [address] [place] [address] MCV (RBC) [Entitic vol] 85.7 fL Normal 80.0-100.0 [facility] Comment on above: Order Comment: pt in [place] [address] 02/01/2023 15:26:12 EDT Performed By: #### 1 [id number], 2959199, 8652662, 6968537, 4232779, 0235408 ####[facility] [address] [place] [address] Platelet mean volume (Bld) [Entitic vol] 6.9 fL Normal 6.4-10.8 [facility] Comment on above: Order Comment: pt in [place] [address] 02/01/2023 15:26:12 EDT Performed By: #### 1 [id number], 1378104, 5940586, 7346027, 5737250, 0297751 ####[facility] [address] [place] [address] Platelets (Bld) [#/Vol] 247.0 E9/L Normal 150.0-500. 0 [facility] Comment on above: Order Comment: pt in [place] [address] 02/01/2023 15:26:12 EDT Performed By: #### 1 [id number], 6802995, 5681119, 5040896, 7198315, 7187590 ####[facility] [address] [place] [address] RBC (Bld) [#/Vol] 5.1 E12/L Normal 4.3-5.9 [facility] Comment on above: Order Comment: pt in [place] [address] 02/01/2023 15:26:12 EDT Performed By: #### 1 [id number], 9559928, 6602716, 4202420, 0751396, 5638852 ####[facility] [address] [place] [address] WBC corrected for nucl RBC Auto (Bld) [#/Vol] 7.2 E9/L Normal 4.0-11.0 [facility] Comment on above: Order Comment: pt in [address]lgqy[address] 02/01/2023 15:26:12 EDT Performed By: #### 1 [id number], 0833991, 6136391, 7304210, 7649434, 9774867 ####[facility] [address] [place] [address] CHEMISTRYOrdered By: SYSTEM SYSTEM on 02-01-2023 Acetaminophen [Mass/Vol] microgram/mL Low 15 - 30 mcg/mL [facility] Remisol Albumin [Mass/Vol] 4.5 g/dL Normal 3.3 - 5.0 gm/dL [facility] Albumin/Globulin [Mass ratio] 1.3 {ratio} Normal 1.1 - 2.2 [facility] ALP [Catalytic activity/Vol] 89 [iU]/d Normal 21 - 98 Int._Unit/ L [facility] ALT No additional P-5'-P [Catalytic activity/Vol] 13 [iU]/d Normal 6 - 46 Int._Unit/ L [facility] Anion gap [Moles/Vol] 8 mmol/L Normal 6 - 16 mEq/L [facility] AST [Catalytic activity/Vol] 23 [iU]/d Normal 5 - 43 Int._Unit/ L [facility] Bilirubin [Mass/Vol] 0.5 mg/dL Normal 0.0 - 1 .1 mg/dL [facility] Calcium [Mass/Vol] 9.3 mg/dL Normal 8.9 - 11. 1 mg/dL [facility] Chloride [Moles/Vol] 103 mmol/L Normal 101 - 1 11 mmol/L [facility] CO2 [Moles/Vol] 29 mmol/L Normal 21 - 31 mmol/L [facility] Creatinine [Mass/Vol] 1.1 mg/dL Normal 0.5 - 1.3 mg/dL [facility] Ethanol [Mass/Vol] mg/dL Normal <=7mg/dL [facility] GFR/1.73 sq M.predicted among non-blacks MDRD (S/P/Bld) [Vol rate/Area] 52 mL/min/1.73 m2 Low >=59mL/min /1.73 m2 [facility] Chem S Globulin (S) [Mass/Vol] 3.5 g/dL Normal 1.4 - 4.0 gm/dL [facility] Glucose [Mass/Vol] 116 mg/dL Normal 55 - 199 mg/dL [facility] Potassium [Moles/Vol] 3.6 mmol/L Normal 3.5 - 5.3 mmol/L [facility] Protein [Mass/Vol] 8.0 g/dL High 6.0 - 7.8 gm/dL [facility] Salicylates [Mass/Vol] mg/dL Low 6 - 2 9 mg/dL [facility] Sodium [Moles/Vol] 136 mmol/L Normal 135 - 145 mmol/L [facility] Urea nitrogen [Mass/Vol] 14 mg/dL Normal 5 - 21 mg/dL [facility] Urea nitrogen/Creatinine [Mass ratio] 13 mg/mg Normal 10 - 20 [facility] Amphetamines Screen method >1000 ng/mL Ql (U) Negative (02/01/23 4:00 PM) Normal Negative [facility] Barbiturates Screen Ql (U) Negative (02/01/23 4:00 PM) Normal Negative [facility] Benzodiazepines Ql (U) Positive 1 *ABN* (02/01/23 4:00 PM) Invalid Interpretation Code Negative [facility] Comment on above: Result Comment: Resu lts verified by repeat analysis\Unconfirmed by alternate method\No confirmation requested by Physican\Critical Result UD_BENZ:POS Called to BEBE PAINTER AT ED by JOSEPH FRIAS And Read Back For Confirmation at: 02/01/2023 16:56:10 Cocaine Ql (U) Negative (02/01/23 4:00 PM) Normal Negative [facility] Opiates Screen Ql (U) Positive 2 *ABN* (02/01/23 4:00 PM) Invalid Interpretation Code Negative [facility] Comment on above: Result Comment: Resu lts verified by repeat analysis\Unconfirmed by alternate method\No confirmation requested by Physican\Critical Result UD_OPIA:POS Called to BEBE PAINTER AT ED by OJSEPH FRIAS And Read Back For Confirmation at: 02/01/2023 16:56:10 Phencyclidine Screen method >25 ng/mL Ql (U) Negative (02/01/23 4:00 PM) Normal Negative [facility] Tetrahydrocannabinol Screen method >50 ng/mL Ql (U) Negative (02/01/23 4:00 PM) Normal Negative [facility] CMPon 02-01-2023 Albumin [Mass/Vol] 4.5 g/dL Normal 3.3-5.0 [facility] Comment on above: Order Comment: pt in [place] [address] 02/01/2023 15:26:12 EDT Performed By: #### 1 [id number], 6428712, 9962675, 7741306, 6874829, 5686955 ####[facility] [address] [place] [address] Albumin/Globulin (S) [Mass conc ratio] 1.3 Normal 1.1-2.2 [facility] Comment on above: Order Comment: pt in [place] [address] 02/01/2023 15:26:12 EDT Performed By: #### 1 6569494, 5843785, 3523693, 3032392, 9582274, 7840698 ####[facility] [address] [place] [address] ALP [Catalytic activity/Vol] 89 Int._Unit/L Normal 21-98 [facility] Comment on above: Order Comment: pt in [place] [address] 02/01/2023 15:26:12 EDT Performed By: #### 1 9389938, 0967184, 2995950, 8303029, 5003937, 7115806 ####[facility] [address] [place] [address] ALT No additional P-5'-P [Catalytic activity/Vol] 13 Int._Unit/L Normal 6-46 [facility] Comment on above: Order Comment: pt in [place] [address] 02/01/2023 15:26:12 EDT Performed By: #### 1 0599044, 7828179, 2820784, 2303264, 8098862, 6292285 ####[facility] [address] [place] [address] AST [Catalytic activity/Vol] 23 Int._Unit/L Normal 5-43 [facility] Comment on above: Order Comment: pt in [place] [address] 02/01/2023 15:26:12 EDT Performed By: #### 1 9378568, 7320620, 9120980, 3182290, 7185942, 2179790 ####[facility] [address] [place] [address] Bilirubin [Mass/Vol] 0.5 mg/dL Normal 0.0-1.1 [facility] Comment on above: Order Comment: pt in [place] [address] 02/01/2023 15:26:12 EDT Performed By: #### 1 1626063, 7417275, 3970251, 6304750, 8324283, 6551899 ####[facility] [address] [place] [address] Creatinine [Mass/Vol] 1.1 mg/dL Normal 0.5-1.3 [facility] Comment on above: Order Comment: pt in [place] [address] 02/01/2023 15:26:12 EDT Performed By: #### 1 0729749, 9594167, 5611104, 9125110, 1290315, 9131759 ####[facility] [address] [place] [address] Globulin (S) [Mass/Vol] 3.5 g/dL Normal 1.4-4.0 [facility] Comment on above: Order Comment: pt in [place] [address] 02/01/2023 15:26:12 EDT Performed By: #### 1 2743807, 3185770, 1071948, 6013608, 6544164, 6290119 ####[facility] [address] [place] [address] Protein [Mass/Vol] 8.0 g/dL High 6.0-7.8 [facility] Comment on above: Order Comment: pt in [place] [address] 02/01/2023 15:26:12 EDT Performed By: #### 1 2728571, 5614693, 5610552, 8001227, 7148906, 7730264 ####[facility] [address] [place] [address] Urea nitrogen [Mass/Vol] 14 mg/dL Normal 5-21 [facility] Comment on above: Order Comment: pt in [place] [address] 02/01/2023 15:26:12 EDT Performed By: #### 1 4431478, 8619441, 8691472, 9565524, 6811326, 2423015 ####[facility] [address] [place] [address] Urea nitrogen/Creatinine [Mass ratio] 13 No Units Normal 10-20 [facility] Comment on above: Order Comment: pt in [place] [address] 02/01/2023 15:26:12 EDT Performed By: #### 1 1508050, 6972869, 6190811, 1904414, 4545448, 6641524 ####[facility] [address] [place] [address] Anion gap [Moles/Vol] 8 mmol/L Normal 6-16 [facility] Comment on above: Order Comment: pt in [place] [address] 02/01/2023 15:26:12 EDT Performed By: #### 1 9129705, 1814802, 4479605, 2294232, 6285775, 9865716 ####[facility] [address] [place] [address] Calcium [Mass/Vol] 9.3 mg/dL Normal 8.9-11.1 [facility] Comment on above: Order Comment: pt in [place] [address] 02/01/2023 15:26:12 EDT Performed By: #### 1 0532616, 7926413, 5677316, 1012714, 2932321, 2223027 ####[facility] [address] [place] [address] Chloride [Moles/Vol] 103 mmol/L Normal 101-111 [facility] Comment on above: Order Comment: pt in [place] [address] 02/01/2023 15:26:12 EDT Performed By: #### 1 8177886, 0636329, 0972242, 8429223, 8056918, 5057562 ####[facility] [address] [place] [address] CO2 [Moles/Vol] 29 mmol/L Normal 21-31 [facility] Comment on above: Order Comment: pt in [place] [address] 02/01/2023 15:26:12 EDT Performed By: #### 1 0998201, 2854358, 8261709, 0417177, 4419717, 1868518 ####[facility] [address] [place] [address] Glucose [Mass/Vol] 116 mg/dL Normal 55-199 [facility] Comment on above: Order Comment: pt in [place] [address] 02/01/2023 15:26:12 EDT Result Comment: If t his glucose result represents a fasting glucose, interpretation should refer to the following reference range: 55-99 mg/dL Performed By: #### 1 1885557, 9990776, 4746026, 6385274, 7532166, 0437065 ####[facility] [address] [place] [address] Potassium [Moles/Vol] 3.6 mmol/L Normal 3.5-5.3 [facility] Comment on above: Order Comment: pt in [place] [address] 02/01/2023 15:26:12 EDT Performed By: #### 1 3309384, 1628863, 7755862, 2394862, 5286195, 5005420 ####[facility] [address] [place] [address] Sodium [Moles/Vol] 136 mmol/L Normal 135-145 [facility] Comment on above: Order Comment: pt in [place] [address] 02/01/2023 15:26:12 EDT Performed By: #### 1 0113180, 8767206, 8464412, 6975248, 7021825, 0299953 ####[facility] [address] [place] [address] CT Head or Brain w/o Contras ton 02-01-2023 CT Head or Brain w/o Contrast Normal [facility] Consent for Treatmenton 0 Consent for Treatment [id number] Normal [facility] ED Clinical Summaryon 2022 ED Clinical Summary Normal Kait mccray [facility] ED Note-Nursingon 02-01-2023 ED Note-Nursing Maegan at bedside. concepcion metcalf about a man that lives at her house who looks like her son but he isn't her son. flight of idea comments. tearful at times. turkey sandwich given. tv turned on to occupy pt Normal [facility] ED Note-Nursing this rn spoke with lakshmi kaba at [facility], [place]. ean is going to reach out to oracio, pt's son. Normal [facility] ED Note-Physicianon 02-02-20 23 ED Note-Physician Normal [facility] Comment on above: Result Comment: Elec tronically Signed By: Mati Taylor DO\.br\Date and Time Signed: 02/01/23 23:28 EDT ED Patient Education Noteon 02-01-2023 ED Patient Education Note Normal [facility] ED Patient Summaryon 023 ED Patient Summary Normal [facility] Ethanolon 02-01-2023 Ethanol [Mass/Vol] mg/dL Normal <=7 [facility] Comment on above: Order Comment: pt in calhv[address]zel[address] 02/01/2023 15:26:12 EDT Performed By: #### 2 [id number] ####[facility] [address] [place] [address] HEMATOLOGYOrdered By: SYSTEM SYSTEM on 02-01-2023 Basophils/100 WBC (Bld) 3.1 % High 0.0 - 2.0 % [facility] HemeAutoSS Basophils/Leukocytes Auto (Bld) [Pure # fraction] 0.2 E9/L Normal 0.0 - 0.2 E9/L [facility] HemeAutoSS Eosinophils/100 WBC (Bld) 2.3 % Normal 0.0 - 8.0 % [facility] HemeAutoSS Eosinophils/Leukocytes Auto (Bld) [Pure # fraction] 0.2 E9/L Normal 0.0 - 0.5 E9/L [facility]eAuto[facility] Lymphocytes/100 WBC (Bld) 26.7 % Normal 14.0 - 50.0 % [facility]eAutoSS Lymphocytes/Leukocytes Auto (Bld) [Pure # fraction] 1.9 E9/L Normal 1.0 - 4.0 E9/L [facility]eAutoSS Monocytes/100 WBC (Bld) 8.7 % Normal 4.0 - 14.0 % [facility]eAutoSS Monocytes/Leukocytes Auto (Bld) [Pure # fraction] 0.6 E9/L Normal 0.2 - 1.0 E9/L [facility]Auto[facility] Neutrophils/100 WBC (Bld) 59.2 % Normal 36.0 - 75.0 % [facility]eAutoSS Neutrophils/Leukocytes Auto (Bld) [Pure # fraction] 4.3 E9/L Normal 2.0 - 7.5 E9/L [facility]eAutoSS HEMATOLOGYOrdered By: Jovanna Harding on 02-01-2023 Erythrocyte distribution width (RBC) [Ratio] 13.4 % Normal 10.9 - 14.2 % [facility] Hematocrit (Bld) [Volume fraction] 44.1 % Normal 34.0 - 46.0 % [facility]eAuto[facility] Hemoglobin (Bld) [Mass/Vol] 14.4 g/dL Normal 12.0 - 16.0 gm/dL [facility]eAutoSS MCH (RBC) [Entitic mass] 28.1 pg Normal 27.0 - 34.0 pg [facility]eAuto[facility] MCHC (RBC) [Mass/Vol] 32.8 g/dL Normal 31.4 - 36.0 gm/dL [facility]eAutoSS MCV (RBC) [Entitic vol] 85.7 fL Normal 80.0 - 100.0 fL [facility]eAutoSS Platelet mean volume (Bld) [Entitic vol] 6.9 fL Normal 6.4 - 10.8 fL [facility] HemeAutoSS Platelets (Bld) [#/Vol] 247.0 E9/L Normal 150.0 - 500.0 E9/L [facility]eAutoSS RBC (Bld) [#/Vol] 5.1 E12/L Normal 4.3 - 5.9 E12/L [facility]eAuto[facility] WBC corrected for nucl RBC Auto (Bld) [#/Vol] 7.2 E9/L Normal 4.0 - 11.0 E9/L [facility] HemeAutoSS MICRO OTHER TESTSOrdered By: Luis Trotter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 With Culture Reflex order by discern. Performed By: #### 1 [id number] ####[place] [id number] URINALYSISOrdered By: Leilani Galloway on 01-06-2023 Bacteria LM Ql (Urine sed) Trace /HPF Normal Trace/HPF [facility] UA Auto SS Bilirubin Ql (U) Negative (01/06/23 6:53 PM) Normal Negative [facility] UA Auto SS Clarity (U) Clear (8/14/23 6:53 PM) Normal Clear [facility] UA Auto SS Color (U) Yellow (01/06/23 6:53 PM) Normal Yellow [facility] UA Auto SS Epithelial cells.squamous LM.HPF (Urine sed) [#/Area] 0-2 /HPF Normal 0-2/HPF [facility] UA Auto SS Glucose Test strip (U) [Mass/Vol] Negative (01/06/23 6:53 PM) Normal Negative [facility] UA Auto SS Hemoglobin Ql (U) 1+ *ABN* (01/06/23 6:53 PM) Invalid Interpretation Code Negative [facility] UA Auto SS Ketones (U) [Mass/Vol] Negative (01/06/23 6:53 PM) Normal Negative [facility] UA Auto SS Ord.plasma/Ord .RBC (Bld) [Mass ratio] 4-20 /HPF Normal 0-3/HPF [facility] UA Auto SS Mucus Ql (Urine sed) Trace (01/06/23 6:53 PM) Normal [facility] UA Auto SS Nitrite Ql (U) Negative (01/06/23 6:53 PM) Normal Negative [facility] UA Auto SS pH (U) 6.0 *NA* (01/06/23 6:53 PM) Invalid Interpretation Code 5.0 - 9.0 [facility] UA Auto SS Protein (U) [Mass/Vol] 1+ *ABN* (01/06/23 6:53 PM) Invalid Interpretation Code Negative [facility] UA Auto SS Specific gravity (U) [Rel density] 1.025 *NA* (01/06/23 6:53 PM) Invalid Interpretation Code 1.005 - 1.030 [facility] UA Auto SS UA Spec Desc Mcdonough (01/06/23 6:53 PM) Normal [facility] UA Auto SS Urobilinogen Qn (U) 1.3137221 {Rolan'U}/dL Normal 0.0 - 1.0 EU/dL [facility] UA Auto SS WBC Auto Ql (U) Trace *ABN* (01/06/23 6:53 PM) Invalid Interpretation Code Negative [facility] UA Auto SS WBC LM.HPF (Urine sed) [#/Area] 0-5 /HPF Normal 0-5/HPF [facility] UA Auto SS Consent for Treatmenton 12-24 Consent for Treatment [id number]:127 Normal [facility] Discharge Instructionson Discharge Instructions [id number]:127 Normal [facility] ED Clinical Summaryon 2022 ED Clinical Summary Normal Kait mccray [facility] ED Patient Education Noteon 01-04-2023 ED Patient Education Note Normal [facility] ED Patient Summaryon 023 ED Patient Summary Normal [facility] UA With Cult Reflexon 2022 Bacteria LM Ql (Urine sed) TRACE Normal Trace [facility] Comment on above: Order Comment: Urina ry Catheter Insertion triggered Urinalysis With Culture Reflex order by discern. Performed By: #### 1 [id number] ####[facility] [address] [place] [address] Bilirubin Ql (U) Negative Normal Negative [facility] Comment on above: Order Comment: Urina ry Catheter Insertion triggered Urinalysis With Culture Reflex order by discern. Performed By: #### 1 [id number] ####[facility] [address] [place] [address] Clarity (U) CLEAR Normal Clear [facility] Comment on above: Order Comment: Urina ry Catheter Insertion triggered Urinalysis With Culture Reflex order by discern. Performed By: #### 1 [id number] ####[facility] [address] [place] [address] Color (U) YELLOW Normal Yellow [facility] Comment on above: Order Comment: Urina ry Catheter Insertion triggered Urinalysis With Culture Reflex order by discern. Performed By: #### 1 [id number] ####[facility] [address] [place] [address] Epithelial cells.squamous LM.HPF (Urine sed) [#/Area] 0-2 Normal 0-2 [facility] Comment on above: Order Comment: Urina ry Catheter Insertion triggered Urinalysis With Culture Reflex order by discern. Performed By: #### 1 [id number] ####[facility] [address] [place] [address] Glucose Test strip (U) [Mass/Vol] Negative Normal Negative [facility] Comment on above: Order Comment: Urina ry Catheter Insertion triggered Urinalysis With Culture Reflex order by discern. Performed By: #### 1 [id number] ####[address] [address] Hemoglobin Ql (U) 1+ Abnormal Negative [facility] Comment on above: Order Comment: Urina ry Catheter Insertion triggered Urinalysis With Culture Reflex order by discern. Performed By: #### 1 [id number] ####[address] [address] Ketones (U) [Mass/Vol] Negative Normal Negative [facility] Comment on above: Order Comment: Urina ry Catheter Insertion triggered Urinalysis With Culture Reflex order by discern. Performed By: #### 1 [id number] ####[address] [address] Ord.plasma/Ord .RBC (Bld) [Mass ratio] 4-20 Normal 0-3 [facility] Comment on above: Order Comment: Urina ry Catheter Insertion triggered Urinalysis With Culture Reflex order by discern. Performed By: #### 1 [id number] ####[address] [address] Nitrite Ql (U) Negative Normal Negative [facility] Comment on above: Order Comment: Urina ry Catheter Insertion triggered Urinalysis With Culture Reflex order by discern. Performed By: #### 1 [id number] ####[address] [address] pH (U) 6.0 [pH] Invalid Interpretation Code 5.0-9.0 [facility] Comment on above: Order Comment: Urina ry Catheter Insertion triggered Urinalysis With Culture Reflex order by discern. Performed By: #### 1 [id number] ####[address] [address] Protein (U) [Mass/Vol] TRACE Abnormal Negative [facility] Comment on above: Order Comment: Urina ry Catheter Insertion triggered Urinalysis With Culture Reflex order by discern. Performed By: #### 1 [id number] ####[place] [address] Specific gravity (U) [Rel density] 1.025 Invalid Interpretation Code 1.005-1.03 0 [facility] Comment on above: Order Comment: Urina ry Catheter Insertion triggered Urinalysis With Culture Reflex order by discern. Performed By: #### 1 [id number] ####[place] [address] Type of Urine collection method Catheter Normal [facility] Comment on above: Order Comment: Urina ry Catheter Insertion triggered Urinalysis With Culture Reflex order by discern. Performed By: #### 1 [id number] ####[place] [address] Urobilinogen Qn (U) 0.2 {Rolan'U}/dL Normal 0.0-1.0 [facility] Comment on above: Order Comment: Urina ry Catheter Insertion triggered Urinalysis With Culture Reflex order by discern. Performed By: #### 1 [id number] ####[place] [id number] WBC Auto Ql (U) Negative Normal Negative [facility] Comment on above: Order Comment: Urina ry Catheter Insertion triggered Urinalysis With Culture Reflex order by discern. Performed By: #### 1 [id number] ####[place] [id number] WBC LM.HPF (Urine sed) [#/Area] 0-5 Normal 0-5 [facility] Comment on above: Order Comment: Urina ry Catheter Insertion triggered Urinalysis With Culture Reflex order by discern. Performed By: #### 1 [id number] ####[address] [address] URINALYSISOrdered By: Chelsy Lujan on 01-04-2023 Bacteria LM Ql (Urine sed) Trace /HPF Normal Trace/HPF [facility] UA Auto SS Bilirubin Ql (U) Negative (01/04/23 3:48 PM) Normal Negative [facility] UA Auto SS Clarity (U) Clear (01/04/23 3:48 PM) Normal Clear [facility] UA Auto SS Color (U) Yellow (01/04/23 3:48 PM) Normal Yellow [facility] UA Auto SS Epithelial cells.squamous LM.HPF (Urine sed) [#/Area] 0-2 /HPF Normal 0-2/HPF [facility] UA Auto SS Glucose Test strip (U) [Mass/Vol] Negative (01/04/23 3:48 PM) Normal Negative [facility] UA Auto SS Hemoglobin Ql (U) 1+ *ABN* (01/04/23 3:48 PM) Invalid Interpretation Code Negative [facility] UA Auto SS Ketones (U) [Mass/Vol] Negative (01/04/23 3:48 PM) Normal Negative [facility] UA Auto SS Ord.plasma/Ord .RBC (Bld) [Mass ratio] 4-20 /HPF Normal 0-3/HPF [facility] UA Auto SS Nitrite Ql (U) Negative (01/04/23 3:48 PM) Normal Negative [facility] UA Auto SS pH (U) 6.0 *NA* (01/04/23 3:48 PM) Invalid Interpretation Code 5.0 - 9.0 [facility] UA Auto SS Protein (U) [Mass/Vol] Trace *ABN* (01/04/23 3:48 PM) Invalid Interpretation Code Negative [facility] UA Auto SS Specific gravity (U) [Rel density] 1.025 *NA* (01/04/23 3:48 PM) Invalid Interpretation Code 1.005 - 1.030 [facility] UA Auto SS UA Spec Desc Catheter (01/04/23 3:48 PM) Normal [facility] UA Auto SS Urobilinogen Qn (U) 0.8433188 {Roaln'U}/dL Normal 0.0 - 1.0 EU/dL [facility] UA Auto SS WBC Auto Ql (U) Negative (01/04/23 3:48 PM) Normal Negative [facility] UA Auto SS WBC LM.HPF (Urine sed) [#/Area] 0-5 /HPF Normal 0-5/HPF [facility] UA Auto SS CHEMISTRYOrdered By: SYSTEM SYSTEM on 12-29-2022 Anion gap [Moles/Vol] 11 mmol/L Normal 6 - 16 mEq/L [facility] Remisol Calcium [Mass/Vol] 9.5 mg/dL Normal 8.9 - 11. 1 mg/dL [facility] Remisol Chloride [Moles/Vol] 100 mmol/L Low 101 - 1 11 mmol/L [facility] Remisol CO2 [Moles/Vol] 28 mmol/L Normal 21 - 31 mmol/L [facility] Remisol Creatinine [Mass/Vol] 1.1 mg/dL Normal 0.5 - 1.3 mg/dL [facility] Remisol GFR/1.73 sq M.predicted among non-blacks MDRD (S/P/Bld) [Vol rate/Area] 53 mL/min/1.73 m2 Low >=59mL/min /1.73 m2 [facility] Chem S Glucose [Mass/Vol] 124 mg/dL Normal 55 - 199 mg/dL [facility] Remisol Potassium [Moles/Vol] 3.9 mmol/L Normal 3.5 - 5.3 mmol/L [facility] Remisol Sodium [Moles/Vol] 135 mmol/L Normal 135 - 145 mmol/L [facility] Remisol Urea nitrogen [Mass/Vol] 19 mg/dL Normal 5 - 21 mg/dL [facility] Remisol Urea nitrogen/Creatinine [Mass ratio] 17 mg/mg Normal 10 - 20 [facility] Remisol HEMATOLOGYOrdered By: SYSTEM SYSTEM on 12-29-2022 Basophils/100 WBC (Bld) 1.1 % Normal 0.0 - 2.0 % [facility] Basophils/Leukocytes Auto (Bld) [Pure # fraction] 0.1 E9/L Normal 0.0 - 0.2 E9/L [facility] Eosinophils/100 WBC (Bld) 1.9 % Normal 0.0 - 8.0 % [facility] Eosinophils/Leukocytes Auto (Bld) [Pure # fraction] 0.1 E9/L Normal 0.0 - 0.5 E9/L [facility] Lymphocytes/100 WBC (Bld) 25.2 % Normal 14.0 - 50.0 % [facility] Lymphocytes/Leukocytes Auto (Bld) [Pure # fraction] 1.7 E9/L Normal 1.0 - 4.0 E9/L [facility] Monocytes/100 WBC (Bld) 7.0 % Normal 4.0 - 14.0 % [facility] Monocytes/Leukocytes Auto (Bld) [Pure # fraction] 0.5 E9/L Normal 0.2 - 1.0 E9/L [facility] Neutrophils/100 WBC (Bld) 64.8 % Normal 36.0 - 75.0 % [facility] Neutrophils/Leukocytes Auto (Bld) [Pure # fraction] 4.3 E9/L Normal 2.0 - 7.5 E9/L [facility] HEMATOLOGYOrdered By: Robert Michaud on 12-29-2022 Erythrocyte distribution width (RBC) [Ratio] 13.5 % Normal 10.9 - 14.2 % [facility] Hematocrit (Bld) [Volume fraction] 40.0 % Normal 34.0 - 46.0 % [facility] Hemoglobin (Bld) [Mass/Vol] 13.1 g/dL Normal 12.0 - 16.0 gm/dL [facility] MCH (RBC) [Entitic mass] 28.2 pg Normal 27.0 - 34.0 pg [facility] MCHC (RBC) [Mass/Vol] 32.7 g/dL Normal 31.4 - 36.0 gm/dL [facility] MCV (RBC) [Entitic vol] 86.4 fL Normal 80.0 - 100.0 fL [facility] Platelet mean volume (Bld) [Entitic vol] 7.1 fL Normal 6.4 - 10.8 fL [facility] Platelets (Bld) [#/Vol] 239.0 E9/L Normal 150.0 - 500.0 E9/L [facility] RBC (Bld) [#/Vol] 4.6 E12/L Normal 4.3 - 5.9 E12/L [facility] WBC corrected for nucl RBC Auto (Bld) [#/Vol] 6.6 E9/L Normal 4.0 - 11.0 E9/L [facility] CBC AUTO DIFFon 10-18-2022 BASO # 0.0 103/ul Normal 0.0-0.1 [facility] Comment on above: Performed By: #### C BC #### [facility] [address] [address] [address] Stevie Torres Basophils/100 WBC (Bld) 0.5 % Normal 0.2-2.0 [facility] Comment on above: Performed By: #### C BC #### [facility] [address] [place] [address] Dr. Stevie Torres EO # 0.3 103/ul Normal 0.0-0.7 [facility] Comment on above: Performed By: #### C BC #### [facility] [address] [place] [address] Dr. Stevie Torres Eosinophils/100 WBC (Bld) 3.2 % Normal 0.9-7.0 [facility] Comment on above: Performed By: #### C BC #### [facility] [address] [place] [address] Dr. Stevie Torres Erythrocyte distribution width (RBC) [Ratio] 11.2 % Normal 11.0-15.0 [facility] Comment on above: Performed By: #### C BC #### [facility] [address] [place] [address] Dr. Stevie Torres Hematocrit (Bld) [Volume fraction] 39.2 % Normal 36.0-48.0 [facility] Comment on above: Performed By: #### C BC #### [facility] [address] [place] [address] Dr. Stevie Torres Hemoglobin (Bld) [Mass/Vol] 12.8 g/dL Normal 12.0-16.0 [facility] Comment on above: Performed By: #### C BC #### [facility] [address] [place] [address] Dr. Stevie Torres IG # 0.03 10e3/ul Normal 0.00-0.03 [facility] Comment on above: Performed By: #### C BC #### [facility] [address] [place] [address] Dr. Stevie Torres IG % 0.4 % Normal 0.0-0.5 [facility] Comment on above: Performed By: #### C BC #### [facility] [address] [place] [address] Dr. Stevie Torres LYMPH # 2.0 103/ul Normal 1.2-3.8 [facility] Comment on above: Performed By: #### C BC #### [facility] [address] [place] [address] Dr. Stevie Torres Lymphocytes/100 WBC (Bld) 26.4 % Normal 20.5-60.0 [facility] Comment on above: Performed By: #### C BC #### [facility] [address] [place] [address] Dr. Stevie Torres MANUAL DIFF REQ NO Normal [facility] Comment on above: Performed By: #### C BC #### [facility] [address] [place] [address] Dr. Stevie Torres MCH (RBC) [Entitic mass] 29.1 pg Normal 26.7-34.0 [facility] Comment on above: Performed By: #### C BC #### [facility] [address] [place] [address] Dr. Stevie Torres MCHC (RBC) [Mass/Vol] 32.7 g/dL Normal 29.9-35.2 [facility] Comment on above: Performed By: #### C BC #### [facility] [address] [place] [address] Dr. Stevie Torres MCV (RBC) [Entitic vol] 89.1 fL Normal 81.0-99.0 [facility] Comment on above: Performed By: #### C BC #### [facility] [address] [place] [address] Dr. Stevie Torres MONO # 0.8 103/ul Normal 0.3-0.8 [facility] Comment on above: Performed By: #### C BC #### [facility] [address] [place] [address] Dr. Stevie Torres Monocytes/100 WBC (Bld) 10.7 % Normal 1.7-12.0 [facility] Comment on above: Performed By: #### C BC #### [facility] [address] [place] [address] Dr. Stevie Torres NEUT # 4.6 103/ul Normal 1.4-6.5 [facility] Comment on above: Performed By: #### C BC #### [facility] [address] [place] [address] Dr. Stevie Torres Neutrophils/100 WBC (Bld) 58.8 % Normal 43.0-75.0 [facility] Comment on above: Performed By: #### C BC #### [facility] [address] [place] [address] Dr. Stevie Torres Platelet mean volume (Bld) [Entitic vol] 8.4 fL Critically low 9.5-13.5 [facility] Comment on above: Performed By: #### C BC #### [facility] [address] [place] [address] Dr. Stevie Torres PLT 270 103/ul Normal 150-450 [facility] Comment on above: Performed By: #### C BC #### [facility] [address] [place] [address] Dr. Stevie Torres RBC 4.40 106/ul Normal 4.20-5.40 [facility] Comment on above: Performed By: #### C BC #### [facility] [address] [place] [address] Dr. Stevie Torres WBC 7.7 103/ul Normal 4.0-11.0 [facility] Comment on above: Performed By: #### C BC #### [facility] [address] [place] [address] Dr. Stevie Torres CRPon 10-18-2022 CRP [Mass/Vol] mg/L Normal <=1.0 [facility] Comment on above: Performed By: #### B MP, CRP, URIC #### [facility] [address] [place] [address] Dr. Stevei Torres PROF CHEM 8 (BAS METB)on Anion gap [Moles/Vol] 8.7 mmol/L Normal [facility] Comment on above: Performed By: #### B MP, CRP, URIC #### [facility] [address] [place] [address] Dr. Stevie Torres Calcium [Mass/Vol] 8.9 mg/dL Normal 8.5-10.1 [facility] Comment on above: Performed By: #### B MP, CRP, URIC #### [facility] [address] [address] [address] Stevie Torres Chloride [Moles/Vol] 98 mmol/L Normal 98-107 [facility] Comment on above: Performed By: #### B MP, CRP, URIC #### [facility] [address] [place] [address] Dr. Stevie Torres CO2 [Moles/Vol] 33.6 mmol/L Critically high 21.0-32.0 [facility] Comment on above: Performed By: #### B MP, CRP, URIC #### [facility] [address] [place] [address] Dr. Stevie Torres Creatinine [Mass/Vol] 1.54 mg/dL Critically high 0.55-1.02 [facility] Comment on above: Performed By: #### B MP, CRP, URIC #### [facility] [address] [place] [address] Dr. Stevie Torres EGFR-AF UKRAINIAN 40 mL/min/1.73m2 Critically low >=60 [facility] Comment on above: Performed By: #### B MP, CRP, URIC #### [facility] [address] [place] [address] Dr. Stevie Torres EGFR-NON AF UKRAINIAN 33 mL/min/1.73m2 Critically low >=60 [facility] Comment on above: Performed By: #### B MP, CRP, URIC #### [facility] [address] [place] [address] Dr. Stevie Torres Glucose [Mass/Vol] 143 mg/dL Critically high 74-106 [facility] Comment on above: Performed By: #### B MP, CRP, URIC #### [facility] [address] [place] [address] Dr. Stevie Torres Potassium [Moles/Vol] 4.3 mmol/L Normal 3.5-5.1 [facility] Comment on above: Performed By: #### B MP, CRP, URIC #### [facility] [address] [place] [address] Dr. Stevie Torres Sodium [Moles/Vol] 136 mmol/L Normal 136-145 [facility] Comment on above: Performed By: #### B MP, CRP, URIC #### [facility] [address] [address] [address] Stevie Torres Urea nitrogen [Mass/Vol] 19.0 mg/dL Critically high 7.0-18.0 [facility] Comment on above: Performed By: #### B MP, CRP, URIC #### [facility] [address] [address] [address] Stevie Torres Urea nitrogen/Creatinine [Mass ratio] 12.3 mg/mg Normal [facility] Comment on above: Performed By: #### B MP, CRP, URIC #### [facility] [address] [place] [address] Dr. Stevie Torres SED RATE WESTERGRENon 2022 SED RATE 18 mm/hr Normal <=30 [facility] Comment on above: Performed By: #### S EDR #### [facility] [address] [place] [address] Dr. Stevie Torres URIC ACID SERUMon 10-18-2022 Urate [Mass/Vol] 5.4 mg/dL Normal 2.6-6.0 [facility] Comment on above: Performed By: #### B MP, CRP, URIC #### [facility] [address] [place] [address] Dr. Stevie Torres XR FOOT RT MIN 3 VIEWSon XR FOOT RT MIN 3 VIEWS EXAM: XR FOOT RT MIN 3 VIEWS HISTORY: Pain in right foot COMPARISON: Right foot x-ray dated 08/28/2022. TECHNIQUE: 3 views of the right foot FINDINGS: Mild diffuse bony demineralization is seen. No acute fracture is seen. Joint alignment is normal. Joint spaces are preserved. Mild soft tissue swelling is seen. Postsurgical changes are seen about the visualized lower tibia. IMPRESSION: Mild diffuse bony demineralization. No obvious acute fracture or malalignment is seen. Soft tissue swelling is seen. Electronically authenticated by: JORGE WOODS Date: 2022-10-18 21:46 Normal [facility] Automated erythrocytes count in urine sediment (number/area)Ordered By: Rogelio De on 06-09-2022 RBC Auto (Urine sed) [#/Area] 0-1 [HPF] 0-4 [facility] Automated leukocytes count i n urine sediment (number/area)Ordered By: Rogelio De on 06-09-2022 WBC Auto (Urine sed) [#/Area] 20-49 [HPF] 0-4 [facility] Bilirubin Test strip Ql (U)O rdered By: Rogelio De on 06-09-2022 Bilirubin Ql (U) Negative Negative [facility] Color Auto (U)Ordered By: Ab celeste De on 06-09-2022 Color (U) Yellow Yellow [facility] Ketones Auto test strip (U) [Mass/Vol]Ordered By: Rogelio De on 06-09-2022 Ketones (U) [Mass/Vol] Negative Negative [facility] - UrinalysisOrder ed By: Rogelio De on 06-09-2022 Hyaline casts LM Ql (Urine sed) 0-8 [LPF] 0-8 [facility] Nitrite Test strip Ql (U)Ord ered By: Rogelio De on 06-09-2022 Nitrite Ql (U) Negative Negative [facility] Protein Auto test strip (U) [Mass/Vol]Ordered By: Rogelio De on 06-09-2022 Protein (U) [Mass/Vol] Negative Negative [facility] Specific gravity Auto test s trip (U) [Rel density]Ordered By: Rogelio De on 06-09-2022 Specific gravity (U) [Rel density] 1.010 1.001-1.03 0 [facility] Squamous epithelial cells de tection in urine sediment by light microscopyOrdered By: Rogelio De on 06-09-2022 Epithelial cells.squamous LM Ql (Urine sed) 0-1 [HPF] 0-2 [facility] Urine bacteria detection by automated methodOrdered By: Rogelio De on 06-09-2022 Bacteria Auto Ql (U) None seen None Seen [facility] Urine clarity by refractomet ry automatedOrdered By: Rogelio De on 06-09-2022 Clarity Refractometry automated (U) Clear Clear [facility] Urine glucose measurement by automated test strip (mass/volume)Ordered By: Rogelio De on 06-09-2022 Glucose Auto test strip (U) [Mass/Vol] Normal mg/dL Normal [facility] Urine hemoglobin detection b y automated test stripOrdered By: Rogelio De on 06-09-2022 Hemoglobin Auto test strip Ql (U) Negative Negative [facility] Urine leukocyte esterase det ection by automated test stripOrdered By: Rogelio De on 06-09-2022 Leukocyte esterase Auto test strip Ql (U) 4+ Negative [facility] Urobilinogen Auto test strip (U) [Mass/Vol]Ordered By: Rogelio De on 06-09-2022 Urobilinogen (U) [Mass/Vol] Normal mg/dL Normal [facility] pH Auto test strip (U)Ordere d By: Rogelio De on 06-09-2022 pH (U) 5.5 [pH] 5.0-9.0 [facility] Albumin [Mass/volume] in Ser um or PlasmaOrdered By: Rogelio De on 06-08-2022 Albumin [Mass/Vol] 3.0 g/dL 3.2-5.5 [facility] Creatinine and Glomerular fi ltration rate.predicted panel (S/P/Bld)Ordered By: Rogelio De on 06-08-2022 Creatinine [Mass/Vol] 1.02 mg/dL 0.44-1.03 [facility] Estimated glomerular filtrat ion rate (GFR) non- AmericanOrdered By: Rogelio De on 06-08-2022 GFR/1.73 sq M.predicted among non-blacks MDRD (S/P/Bld) [Vol rate/Area] 53 mL/Min [facility] Globulin Calc (S) [Mass/Vol] Ordered By: Rogelio De on 06-08-2022 Globulin (S) [Mass/Vol] 2.2 g/dL [facility] Glucose mean value [Mass/vol ume] in Blood Estimated from glycated hemoglobinOrdered By: Rogelio De on 06-08-2022 Average glucose Estimated from glycated hemoglobin (Bld) [Mass/Vol] 126 mg/dL [facility] Hemoglobin A1c percentageOrd ered By: Rogelio De on 06-08-2022 HbA1c (Bld) [Mass fraction] 6.0 % 4.3-5.6 [facility] Comment on above: Increased risk for d iabetes: 5.7 - 6.4diabetes: >6.4glycemic control for adults with diabetes: <7.0 No Panel InformationOrdered By: Rogelio De on 06-08-2022 Estimated GFR () > 60 mL/Min [facility] Comment on above: GFR estimated refere nce range: According to KDOQI guidelines, <60 ml/min/1.73m2 is sufficient to diagnose a patient with chronic kidney disease. Pharmacy Creatinine Clearance (Chem 36.51 [facility] Protein [Mass/volume] in Ser um or PlasmaOrdered By: Rogelio De on 06-08-2022 Protein [Mass/Vol] 5.2 g/dL 6.1-7.9 [facility] Serum or plasma alanine hancock otransferase measurement without P-5'-P (enzymatic activiOrdered By: Rogelio De on 06-08-2022 ALT No additional P-5'-P [Catalytic activity/Vol] 15 U/L 10-60 [facility] Serum or plasma albumin/glob ulin mass ratioOrdered By: Rogelio De on 06-08-2022 Albumin/Globulin [Mass ratio] 1.4 {ratio} [facility] Serum or plasma alkaline miguel ángel sphatase measurement (enzymatic activity/volume)Ordered By: Rogelio De on 06-08-2022 ALP [Catalytic activity/Vol] 53 U/L 32-92 [facility] Serum or plasma anion gap de terminationOrdered By: Rogelio De on 06-08-2022 Anion gap [Moles/Vol] 9.5 mmol/L 6.0-15.0 [facility] Serum or plasma aspartate am inotransferase measurement (enzymatic activity/volume)Ordered By: Rogelio De on 06-08-2022 AST [Catalytic activity/Vol] 16 U/L 10-42 [facility] Serum or plasma calcium dimitris urement (mass/volume)Ordered By: Rogelio De on 06-08-2022 Calcium [Mass/Vol] 9.2 mg/dL 8.2-10.2 [facility] Serum or plasma chloride jeison surement (moles/volume)Ordered By: Rogelio De on 06-08-2022 Chloride [Moles/Vol] 96 mmol/L 95-114 [facility] Serum or plasma glucose dimitris urement (mass/volume)Ordered By: Rogelio De on 06-08-2022 Glucose [Mass/Vol] 102 mg/dL 70-100 [facility] Comment on above: ADA recommended refe rence rangeRandom Glucose Reference Range is dependent on time and content of last meal. Glucose of more than 200 mg/dL in a nonstressed, ambulatory subject supports the diagnosis of Diabetes Mellitus. Serum or plasma potassium me asurement (moles/volume)Ordered By: Rogelio De on 06-08-2022 Potassium [Moles/Vol] 4.3 mmol/L 3.5-5.1 [facility] Serum or plasma sodium measu rement (moles/volume)Ordered By: Rogelio De on 06-08-2022 Sodium [Moles/Vol] 131 mmol/L 136-146 [facility] Serum or plasma total biliru bin measurement (mass/volume)Ordered By: Rogelio De on 06-08-2022 Bilirubin [Mass/Vol] 0.3 mg/dL 0.3-1.2 [facility] Serum or plasma total carbon dioxide measurement (moles/volume)Ordered By: Rogelio De on 06-08-2022 CO2 [Moles/Vol] 29.8 mmol/L 22.0-30.0 [facility] Serum or plasma urea nitroge n measurement (mass/volume)Ordered By: Rogelio De on 06-08-2022 Urea nitrogen [Mass/Vol] 28 mg/dL 9-23 [facility] Cholesterol [Mass/volume] in Serum or PlasmaOrdered By: Rogelio De on 05-26-2022 Cholesterol [Mass/Vol] 154 mg/dL 140-200 [facility] Comment on above: Chol less than 200 m g/dl low riskChol 201-239 mg/dl borderline riskChol 240 mg/dl and greater high risk Cholesterol in LDL Calc [Mas s/Vol]Ordered By: Rogelio De on 05-26-2022 Cholesterol in LDL [Mass/Vol] 73 mg/dL 0-100 [facility] Comment on above: LDL ATP III CLASSIFI CATIONLDL less than 100 mg/dL OptimalLDL 100-129 mg/dL Near or above optimalLDL 130-159 mg/dL Borderline highLDL 160-189 mg/dL HighLDL greater than 189 mg/dL Very high Cholesterol in VLDL Calc [Ma ss/Vol]Ordered By: Rogelio De on 05-26-2022 Cholesterol in VLDL [Mass/Vol] 13 mg/dL [facility] No Panel InformationOrdered By: Rogelio De on 05-26-2022 25-Hydroxy Vitamin D Total 57.1 ng/mL 30-100 [facility] Comment on above: VITAMIN D STATUS 25( [place])VITAMIN D RANGE (ng/mL) Deficient <20 Insufficient 20 to <30Sufficient 30 to 100Reference: Mahesh MF,[place]ina NC, Omega CABRERA, et al. Evaluation,treatment, and prevention of vitamin D deficiency; an Endocrine Society clinical practice guideline. JCEM. 2010; 96(7):1911-30. Serum or plasma high density lipoprotein (HDL) cholesterol measurementOrdered By: Rogelio De on 05-26-2022 Cholesterol in HDL [Mass/Vol] 67 mg/dL 35-85 [facility] Comment on above: HDL CHOL ATP-III CLA SSIFICATION Cardiovascular RiskHDL > or equal to 60 mg/dL LOWHDL < 40 mg/dL HIGH Serum or plasma total choles terol/high density lipoprotein (HDL) cholesterol mass ratOrdered By: Rogelio De on 05-26-2022 Cholesterol.total/Chol esterol in HDL [Mass ratio] 2.3 {ratio} <5.0 [facility] TSH DL <= 0.005 mIU/L QnOrde red By: Rogelio De on 05-26-2022 TSH Qn 0.56 m[IU]/L 0.45-5.33 [facility] Triglyceride [Mass/volume] i n Serum or PlasmaOrdered By: Rogelio De on 05-26-2022 Triglyceride [Mass/Vol] 69 mg/dL 35-149 [facility] Comment on above: TRIG ATP III CLASSIF ICATIONTRIG less than 150 mg/dL NormalTRIG 150-199 mg/dL Borderline highTRIG 200-500 mg/dL High TRIG greater than 500 mg/dL Very highStandard traceable to the Center for Disease Conrtrol and Prevention (CDC) test method. Basophils Auto (Bld) [#/Vol] Ordered By: Rome Luciano on 05-25-2022 Basophils (Bld) [#/Vol] 0.1 10*3/uL 0.0-0.2 [facility] Basophils/100 WBC Auto (Bld) Ordered By: Rome Luciano on 05-25-2022 Basophils/100 WBC (Bld) 0.6 % . [facility] Eosinophils Auto (Bld) [#/Vo l]Ordered By: Rome Luciano on 05-25-2022 Eosinophils (Bld) [#/Vol] 0.1 10*3/uL 0.0-0.45 [facility] Eosinophils/100 WBC Auto (Bl d)Ordered By: Rome Luciano on 05-25-2022 Eosinophils/100 WBC (Bld) 0.6 % . [facility] Erythrocyte distribution wid th Auto (RBC) [Ratio]Ordered By: Rome Luicano on 05-25-2022 Erythrocyte distribution width (RBC) [Ratio] 12.2 % 11.9-15.3 [facility] Hematocrit Auto (Bld) [Volum e fraction]Ordered By: Rome Bolandr on 05-25-2022 Hematocrit (Bld) [Volume fraction] 39.4 % 34.0-46.4 [facility] Hemoglobin [Mass/volume] in BloodOrdered By: Rome Bolandr on 05-25-2022 Hemoglobin (Bld) [Mass/Vol] 13.0 g/dL 11.8-15.4 [facility] Leukocytes [#/volume] correc kenyatta for nucleated erythrocytes in Blood by Automated counOrdered By: Rome Luciano on 05-25-2022 WBC corrected for nucl RBC Auto (Bld) [#/Vol] 11.1 10*3/uL 3.8-11.6 [facility] Lymphocytes Auto (Bld) [#/Vo l]Ordered By: Rome Vegaomar on 05-25-2022 Lymphocytes (Bld) [#/Vol] 1.4 10*3/uL 1.00-4.8 [facility] Lymphocytes/100 WBC Auto (Bl d)Ordered By: Rome Luciano on 05-25-2022 Lymphocytes/100 WBC (Bld) 12.4 % . [facility] MCH Auto (RBC) [Entitic mass ]Ordered By: Rome Vegaomamahendra on 05-25-2022 MCH (RBC) [Entitic mass] 30.9 pg 24.7-34.3 [facility] MCHC Auto (RBC) [Mass/Vol]Or dered By: Rome Vegaomamahendra on 05-25-2022 MCHC (RBC) [Mass/Vol] 32.9 g/dL 32.0-35.0 [facility] MCV Auto (RBC) [Entitic vol] Ordered By: Rome Vegaomar on 05-25-2022 MCV (RBC) [Entitic vol] 94.0 fL 80-100 [facility] MICRO OTHER TESTSOrdered By: Luis Trotter on 05-25-2022 Rapid COV Int NEG [place] (05/25/22 2:11 AM) Normal [facility] Rapid COV Int POS [place]l [place] (05/25/22 2:11 AM) Normal [facility] SARS-CoV+SARS-CoV-2 (COVID-19) Ag IA.rapid Ql (Resp) Not Detected (05/25/22 2:11 AM) Normal Not Detected [facility] Monocytes Auto (Bld) [#/Vol] Ordered By: Obyanickdalakshmi Vegaomar on 05-25-2022 Monocytes (Bld) [#/Vol] 0.9 10*3/uL 0.0-0.8 [facility] Monocytes/100 WBC Auto (Bld) Ordered By: Obyanickdalakshmi Vegaomar on 05-25-2022 Monocytes/100 WBC (Bld) 7.8 % . [facility] Neutrophils Auto (Bld) [#/Vo l]Ordered By: Obheather Vegaomar on 05-25-2022 Neutrophils (Bld) [#/Vol] 8.7 10*3/uL 1.8-7.7 [facility] Neutrophils/100 WBC Auto (Bl d)Ordered By: Rome Vegaomar on 05-25-2022 Neutrophils/100 WBC (Bld) 78.6 % . [facility] Nucleated erythrocytes [Pres ence] in Blood by Automated countOrdered By: Rome Bolandr on 05-25-2022 Nucleated RBC Auto Ql (Bld) 0.0 /100{WBC} 0-0.5 [facility] Platelet mean volume Auto (B ld) [Entitic vol]Ordered By: Rome Vegaomar on 05-25-2022 Platelet mean volume (Bld) [Entitic vol] 7.1 fL 6.3-10.7 [facility] Platelets Auto (Bld) [#/Vol] Ordered By: Obyanickdalakshmi Vegaomar on 05-25-2022 Platelets (Bld) [#/Vol] 219 10*3/uL 150-450 [facility] RBC Auto (Bld) [#/Vol]Ordere d By: Obyanickdalakshmi Vegaomar on 05-25-2022 RBC (Bld) [#/Vol] 4.19 10*6/uL 3.60-5.00 [facility] WBC Auto (Bld) [#/Vol]Ordere d By: Rome Luciano on 05-25-2022 WBC (Bld) [#/Vol] 11.1 10*3/uL 3.8-11.6 [facility] CBC AUTO DIFFon 05-24-2022 BASO # 0.1 103/ul Normal 0.0-0.1 [facility] Comment on above: Performed By: #### C BC #### [facility] [address] [address] [address] Stevie Torres Basophils/100 WBC (Bld) 0.6 % Normal 0.2-2.0 [facility] Comment on above: Performed By: #### C BC #### [facility] [address] [place] [address] Dr. Stevie Torres EO # 0.1 103/ul Normal 0.0-0.7 [facility] Comment on above: Performed By: #### C BC #### [facility] [address] [address] [address] Stevie Torres Eosinophils/100 WBC (Bld) 0.8 % Critically low 0.9-7.0 [facility] Comment on above: Performed By: #### C BC #### [facility] [address] [place] [address] Dr. Stevie Torres Erythrocyte distribution width (RBC) [Ratio] 11.6 % Normal 11.0-15.0 [facility] Comment on above: Performed By: #### C BC #### [facility] [address] [place] [address] Dr. Stevie Torres Hematocrit (Bld) [Volume fraction] 38.4 % Normal 36.0-48.0 [facility] Comment on above: Performed By: #### C BC #### [facility] [address] [place] [address] Dr. Stevie Torres Hemoglobin (Bld) [Mass/Vol] 12.5 g/dL Normal 12.0-16.0 [facility] Comment on above: Performed By: #### C BC #### [facility] [address] [place] [address] Dr. Stevie Torres IG # 0.05 10e3/ul Critically high 0.00-0.03 [facility] Comment on above: Performed By: #### C BC #### [facility] [address] [place] [address] Dr. Stevie Torres IG % 0.4 % Normal 0.0-0.5 [facility] Comment on above: Performed By: #### C BC #### [facility] [address] [place] [address] Dr. Stevie Torres LYMPH # 1.7 103/ul Normal 1.2-3.8 [facility] Comment on above: Performed By: #### C BC #### [facility] [address] [place] [address] Dr. Stevie Torers Lymphocytes/100 WBC (Bld) 15.5 % Critically low 20.5-60.0 [facility] Comment on above: Performed By: #### C BC #### [facility] [address] [place] [address] Dr. Stevie Torres MANUAL DIFF REQ NO Normal [facility] Comment on above: Performed By: #### C BC #### [facility] [address] [place] [address] Dr. Stevie Torres MCH (RBC) [Entitic mass] 31.2 pg Normal 26.7-34.0 [facility] Comment on above: Performed By: #### C BC #### [facility] [address] [place] [address] Dr. Stevie Torres MCHC (RBC) [Mass/Vol] 32.6 g/dL Normal 29.9-35.2 [facility] Comment on above: Performed By: #### C BC #### [facility] [address] [place] [address] Dr. Stevie Torres MCV (RBC) [Entitic vol] 95.8 fL Normal 81.0-99.0 [facility] Comment on above: Performed By: #### C BC #### [facility] [address] [place] [address] Dr. Stevie Torres MONO # 1.1 103/ul Critically high 0.3-0.8 [facility] Comment on above: Performed By: #### C BC #### [facility] [address] [place] [address] Dr. Stevie Torres Monocytes/100 WBC (Bld) 9.6 % Normal 1.7-12.0 [facility] Comment on above: Performed By: #### C BC #### [facility] [address] [place] [address] Dr. Stevie Torres NEUT # 8.2 103/ul Critically high 1.4-6.5 [facility] Comment on above: Performed By: #### C BC #### [facility] [address] [place] [address] Dr. Stevie Torres Neutrophils/100 WBC (Bld) 73.1 % Normal 43.0-75.0 [facility] Comment on above: Performed By: #### C BC #### [facility] [address] [place] [address] Dr. Stevie Torres Platelet mean volume (Bld) [Entitic vol] 8.4 fL Critically low 9.5-13.5 [facility] Comment on above: Performed By: #### C BC #### [facility] [address] [place] [address] Dr. Stevie Torres PLT 223 103/ul Normal 150-450 [facility] Comment on above: Performed By: #### C BC #### [facility] [address] [place] [address] Dr. Stevie Torres RBC 4.01 106/ul Critically low 4.20-5.40 [facility] Comment on above: Performed By: #### C BC #### [facility] [address] [place] [address] Dr. Stevie Torres WBC 11.2 103/ul Critically high 4.0-11.0 [facility] Comment on above: Performed By: #### C BC #### [facility] [address] [place] [address] Dr. Stevie Torres CHEMISTRYOrdered By: SYSTEM SYSTEM on 05-24-2022 Amphetamines Screen method >1000 ng/mL Ql (U) Negative (05/24/22 11:46 PM) Normal Negative [facility] Barbiturates Screen Ql (U) Negative (05/24/22 11:46 PM) Normal Negative [facility] Benzodiazepines Ql (U) Positive *ABN* (05/24/22 11:46 PM) Invalid Interpretation Code Negative [facility] Cocaine Ql (U) Negative (05/24/22 11:46 PM) Normal Negative [facility] Opiates Screen Ql (U) Positive *ABN* (05/24/22 11:46 PM) Invalid Interpretation Code Negative [facility] Phencyclidine Screen method >25 ng/mL Ql (U) Negative (05/24/22 11:46 PM) Normal Negative [facility] Tetrahydrocannabinol Screen method >50 ng/mL Ql (U) Negative (05/24/22 11:46 PM) Normal Negative [facility] Albumin [Mass/Vol] 4.4 g/dL Normal 3.3 - 5.0 gm/dL [facility] Albumin/Globulin [Mass ratio] 1.6 {ratio} Normal 1.1 - 2.2 [facility] ALP [Catalytic activity/Vol] 60 [iU]/d Normal 21 - 98 Int._Unit/ L [facility] ALT No additional P-5'-P [Catalytic activity/Vol] 20 [iU]/d Normal 6 - 46 Int._Unit/ L [facility] Anion gap [Moles/Vol] 13 mmol/L Normal 6 - 16 mEq/L [facility] AST [Catalytic activity/Vol] 29 [iU]/d Normal 5 - 43 Int._Unit/ L [facility] Bilirubin [Mass/Vol] 1.0 mg/dL Normal 0.0 - 1 .1 mg/dL [facility] Calcium [Mass/Vol] 9.5 mg/dL Normal 8.9 - 11. 1 mg/dL [facility] Chloride [Moles/Vol] 98 mmol/L Low 101 - 1 11 mmol/L [facility] CO2 [Moles/Vol] 26 mmol/L Normal 21 - 31 mmol/L [facility] Creatinine [Mass/Vol] 1.1 mg/dL Normal 0.5 - 1.3 mg/dL [facility] Ethanol [Mass/Vol] mg/dL Normal <=7mg/dL [facility] GFR/1.73 sq M.predicted among blacks MDRD (S/P/Bld) [Vol rate/Area] 59 mL/min/1.73 m2 Normal >=59mL/min /1.73 m2 [facility] S GFR/1.73 sq M.predicted among non-blacks MDRD (S/P/Bld) [Vol rate/Area] 49 mL/min/1.73 m2 Low >=59mL/min /1.73 m2 [facility] S Globulin (S) [Mass/Vol] 2.8 g/dL Normal 1.4 - 4.0 gm/dL [facility] Glucose [Mass/Vol] 98 mg/dL Normal 55 - 199 mg/dL [facility] Potassium [Moles/Vol] 4.1 mmol/L Normal 3.5 - 5.3 mmol/L [facility] Protein [Mass/Vol] 7.2 g/dL Normal 6.0 - 7.8 gm/dL [facility] Sodium [Moles/Vol] 133 mmol/L Low 135 - 145 mmol/L [facility] Urea nitrogen [Mass/Vol] 19 mg/dL Normal 5 - 21 mg/dL [facility] Urea nitrogen/Creatinine [Mass ratio] 17 mg/mg Normal 10 - 20 [facility] ER URINE PROFILEon 2 Bilirubin Ql (U) Negative Normal NEGATIVE [facility] Comment on above: Performed By: #### E RUR #### [facility] [address] [place] [address] Dr. Stevie Torres Clarity (U) CLEAR Normal CLEAR [facility] Comment on above: Performed By: #### E RUR #### [facility] [address] [place] [address] Dr. Stevie Torres Color (U) LT. YELLOW Normal YELLOW [facility] Comment on above: Performed By: #### E RUR #### [facility] [address] [place] [address] Dr. Stevie Torres ERUAHD A micrscopic examina tion will be performed if indicated. Normal [facility] Comment on above: Performed By: #### E RUR #### [facility] [address] [place] [address] Dr. Stevie Torres Glucose Ql (U) 500 mg/dl Abnormal NEGATIVE [facility] Comment on above: Performed By: #### E RUR #### [facility] [address] [place] [address] Dr. Stevie Torres Hemoglobin Ql (U) Negative Normal NEGATIVE [facility] Comment on above: Performed By: #### E RUR #### [facility] [address] [place] [address] Dr. Stevie Torres Ketones Ql (U) Negative Normal NEGATIVE [facility] Comment on above: Performed By: #### E RUR #### [facility] [address] [place] [address] Dr. Stevie Torres LEUKOCYTES Negative Normal NEGATIVE [facility] Comment on above: Performed By: #### E RUR #### [facility] [address] [place] [address] Dr. Stevie Torres Nitrite Ql (U) Negative Normal NEGATIVE [facility] Comment on above: Performed By: #### E RUR #### [facility] [address] [place] [address] Dr. Stevie Torres pH (U) 5.0 [pH] Normal 5-9 [facility] Comment on above: Performed By: #### E RUR #### [facility] [address] [place] [address] Dr. Stevie Torres SPEC GRAVITY >=1.030 Abnormal 1.005-<=1. 025 [facility] Comment on above: Performed By: #### E RUR #### [facility] [address] [place] [address] Dr. Stevie Torres UA PROTEIN Negative Normal NEGATIVE/ TRACE [facility] Comment on above: Performed By: #### E RUR #### [facility] [address] [place] [address] Dr. Stevie Torres UR MICRO IND NOT INDICATED Normal [facility] Comment on above: Performed By: #### E RUR #### [facility] [address] [place], [place] [address] Dr. Stevie Torres Urobilinogen Qn (U) 0.2 {Rolan'U}/dL Normal 0.2 - 1. 0 [facility] Comment on above: Performed By: #### E RUR #### [facility] [address] [place] [address] [address] Stevie Torres HEMATOLOGYOrdered By: SYSTEM SYSTEM on 05-24-2022 Basophils/100 WBC (Bld) 0.5 % Normal 0.0 - 2.0 % [facility] Basophils/Leukocytes Auto (Bld) [Pure # fraction] 0.1 E9/L Normal 0.0 - 0.2 E9/L [facility] Eosinophils/100 WBC (Bld) 0.7 % Normal 0.0 - 8.0 % [facility] Eosinophils/Leukocytes Auto (Bld) [Pure # fraction] 0.1 E9/L Normal 0.0 - 0.5 E9/L [facility] Lymphocytes/100 WBC (Bld) 21.3 % Normal 14.0 - 50.0 % [facility] Lymphocytes/Leukocytes Auto (Bld) [Pure # fraction] 2.3 E9/L Normal 1.0 - 4.0 E9/L [facility] Monocytes/100 WBC (Bld) 6.6 % Normal 4.0 - 14.0 % [facility] Monocytes/Leukocytes Auto (Bld) [Pure # fraction] 0.7 E9/L Normal 0.2 - 1.0 E9/L [facility] Neutrophils/100 WBC (Bld) 70.9 % Normal 36.0 - 75.0 % [facility] Neutrophils/Leukocytes Auto (Bld) [Pure # fraction] 7.8 E9/L High 2.0 - 7.5 E9/L [facility] HEMATOLOGYOrdered By: Luis Trotter on 05-24-2022 Erythrocyte distribution width (RBC) [Ratio] 12.5 % Normal 10.9 - 14.2 % [facility] Hematocrit (Bld) [Volume fraction] 39.8 % Normal 34.0 - 46.0 % [facility] Hemoglobin (Bld) [Mass/Vol] 12.8 g/dL Normal 12.0 - 16.0 gm/dL [facility] MCH (RBC) [Entitic mass] 30.9 pg Normal 27.0 - 34.0 pg [facility] MCHC (RBC) [Mass/Vol] 32.3 g/dL Normal 31.4 - 36.0 gm/dL [facility] MCV (RBC) [Entitic vol] 96.0 fL Normal 80.0 - 100.0 fL [facility] Platelet mean volume (Bld) [Entitic vol] 6.5 fL Normal 6.4 - 10.8 fL [facility] Platelets (Bld) [#/Vol] 222.0 E9/L Normal 150.0 - 500.0 E9/L [facility] RBC (Bld) [#/Vol] 4.2 E12/L Low 4.3 - 5.9 E12/L [facility] WBC corrected for nucl RBC Auto (Bld) [#/Vol] 11.0 E9/L Normal 4.0 - 11.0 E9/L [facility] PROF CHEM 8 (BAS METB)on Anion gap [Moles/Vol] 12.6 mmol/L Normal [facility] Comment on above: Performed By: #### TAMMIE LOVELL #### [facility] [address] [place] [address] Dr. Stevie Torres Calcium [Mass/Vol] 9.1 mg/dL Normal 8.5-10.1 [facility] Comment on above: Performed By: #### TAMMIE LOVELL #### [facility] [address] [place] [address] [address] Stevie Torres Chloride [Moles/Vol] 97 mmol/L Critically low 98-107 [facility] Comment on above: Performed By: #### TAMMIE LOVELL #### [facility] [address] [place] [address] Dr. Stevie Torres CO2 [Moles/Vol] 29.6 mmol/L Normal 21.0-32.0 [facility] Comment on above: Performed By: #### TAMMIE LOVELL #### [facility] [address] [place] [address] Dr. Stevie Torres Creatinine [Mass/Vol] 1.22 mg/dL Critically high 0.55-1.02 [facility] Comment on above: Performed By: #### E RUR, UMICRO #### [facility] [address] [place] [address] Dr. Stevie Torres EGFR-AF UKRAINIAN 52 mL/min/1.73m2 Critically low >=60 [facility] Comment on above: Performed By: #### E RUR, UMICRO #### [facility] [address] [place] [address] Dr. Stevie Torres EGFR-NON AF UKRAINIAN 43 mL/min/1.73m2 Critically low >=60 [facility] Comment on above: Performed By: #### E RUR UMICRO #### [facility] [address] [place] [address] Dr. Stevie Torres Glucose [Mass/Vol] 142 mg/dL Critically high 74-106 [facility] Comment on above: Performed By: #### E WISAMR UMICRO #### [facility] [address] [place] [address] Dr. Stevie Torres Potassium [Moles/Vol] 4.2 mmol/L Normal 3.5-5.1 [facility] Comment on above: Performed By: #### E ADWOA, UMICRO #### [facility] [address] [place] [address] Dr. Stevie Torres Sodium [Moles/Vol] 135 mmol/L Critically low 136-145 [facility] Comment on above: Performed By: #### E RUR, UMICRO #### [facility] [address] [place] [address] Dr. Stevie Torres Urea nitrogen [Mass/Vol] 28.0 mg/dL Critically high 7.0-18.0 [facility] Comment on above: Performed By: #### E RUR, UMICRO #### [facility] [address] [place] [address] Dr. Stevie Torres Urea nitrogen/Creatinine [Mass ratio] 23.0 mg/mg Normal [facility] Comment on above: Performed By: #### TAMMIE LOVELL #### [facility] [address] [address] [address] Stevie Torres TROPONIN, HIGH SENSITIVITYon 05-24-2022 HSTROP 15.5 pg/mL Normal 4.0-51.3 [facility] Comment on above: Result Comment: CUT- OFF POINTS HAVE BEEN ESTABLISHED BASED ON THE FOURTH UNIVERSAL DEFINITIONS OF MYOCARDIAL INFARCTION. THE UPPER REFERENCE LIMIT (URL) OF TROPONIN, DEFINED THE 99TH PERCENTILE OF cTnI DISTRIBUTION IN A REFERENCE POPULATION, HAS BEEN CONFIRMED THE DECISION THRESHOLD FOR [place] DIAGNOSIS. Performed By: #### TAMMIE LOVELL #### [facility] [address] [address] [address] Stevie Torres URINALYSISOrdered By: Luis Trotter on 05-24-2022 Bilirubin Ql (U) Negative (05/24/22 11:46 PM) Normal Negative [facility] UA Auto SS Clarity (U) Clear (05/24/22 11:46 PM) Normal Clear [facility] UA Auto SS Color (U) Yellow (05/24/22 11:46 PM) Normal Yellow [facility] UA Auto SS Epithelial cells.squamous LM.HPF (Urine sed) [#/Area] 0-2 /HPF Normal 0-2/HPF [facility] UA Auto SS Glucose Test strip (U) [Mass/Vol] Negative (05/24/22 11:46 PM) Normal Negative [facility] UA Auto SS Hemoglobin Ql (U) Negative (05/24/22 11:46 PM) Normal Negative [facility] UA Auto SS Ketones (U) [Mass/Vol] Negative (05/24/22 11:46 PM) Normal Negative [facility] UA Auto SS Ord.plasma/Ord .RBC (Bld) [Mass ratio] 0-3 /HPF Normal 0-3/HPF [facility] UA Auto SS Nitrite Ql (U) Negative (05/24/22 11:46 PM) Normal Negative [facility] UA Auto SS pH (U) 6.0 *NA* (05/24/22 11:46 PM) Invalid Interpretation Code 5.0 - 9.0 [facility] UA Auto SS Protein (U) [Mass/Vol] Negative (05/24/22 11:46 PM) Normal Negative [facility] UA Auto SS Specific gravity (U) [Rel density] 1.015 *NA* (05/24/22 11:46 PM) Invalid Interpretation Code 1.005 - 1.030 [facility] UA Auto SS UA Spec Desc Clean Catch (05/24/22 11:46 PM) Normal [facility] UA Auto SS Urobilinogen Qn (U) 0.9715064 {Rolan'U}/dL Normal 0.0 - 1.0 EU/dL [facility] Auto SS WBC Auto Ql (U) Negative (05/24/22 11:46 PM) Normal Negative [facility] UA Auto SS WBC LM.HPF (Urine sed) [#/Area] 0-5 /HPF Normal 0-5/HPF [facility] UA Auto SS CHEMISTRYOrdered By: Lab ROP User on 04-19-2022 Glucose [Mass/Vol] 121 mg/dL High 55 - 99 mg/dL [facility] POC Subsection Comment on above: Result Comment: Christina perea RN/ POC Device SN [id number] Invalid Interpretation Code [facility] POC Subsection POC User ID [id number] Invalid Interpretation Code [facility] POC Subsection POC Username BOBBY LOU Invalid Interpretation Code [facility] POC Subsection CHEMISTRYOrdered By: SYSTEM SYSTEM on 04-19-2022 Sodium [Moles/Vol] 133 mmol/L Low 135 - 145 mmol/L [facility] Anion gap [Moles/Vol] 13 mmol/L Normal 6 - 16 mEq/L [facility] Calcium [Mass/Vol] 8.9 mg/dL Normal 8.9 - 11. 1 mg/dL [facility] Chloride [Moles/Vol] 94 mmol/L Low 101 - 1 11 mmol/L [facility] CO2 [Moles/Vol] 28 mmol/L Normal 21 - 31 mmol/L [facility] Creatinine [Mass/Vol] 1.4 mg/dL High 0.5 - 1.3 mg/dL [facility] GFR/1.73 sq M.predicted among blacks MDRD (S/P/Bld) [Vol rate/Area] 45 mL/min/1.73 m2 Low >=59mL/min /1.73 m2 [facility] S GFR/1.73 sq M.predicted among non-blacks MDRD (S/P/Bld) [Vol rate/Area] 37 mL/min/1.73 m2 Low >=59mL/min /1.73 m2 [facility] Chem S Glucose [Mass/Vol] 97 mg/dL Normal 55 - 199 mg/dL [facility] Potassium [Moles/Vol] 4.4 mmol/L Normal 3.5 - 5.3 mmol/L [facility] Sodium [Moles/Vol] 131 mmol/L Low 135 - 145 mmol/L [facility] Sodium [Moles/Vol] 132 mmol/L Low 135 - 145 mmol/L [facility] Urea nitrogen [Mass/Vol] 22 mg/dL High 5 - 21 mg/dL [facility] Urea nitrogen/Creatinine [Mass ratio] 16 mg/mg Normal 10 - 20 [facility] Remisol CHEMISTRYOrdered By: SYSTEM SYSTEM on 04-18-2022 Anion gap [Moles/Vol] 8 mmol/L Normal 6 - 16 mEq/L [facility] Calcium [Mass/Vol] 8.7 mg/dL Low 8.9 - 11. 1 mg/dL [facility] Chloride [Moles/Vol] 93 mmol/L Low 101 - 1 11 mmol/L [facility] CO2 [Moles/Vol] 32 mmol/L High 21 - 31 mmol/L [facility] Creatinine [Mass/Vol] 1.3 mg/dL Normal 0.5 - 1.3 mg/dL [facility] Remisol GFR/1.73 sq M.predicted among blacks MDRD (S/P/Bld) [Vol rate/Area] 49 mL/min/1.73 m2 Low >=59mL/min /1.73 m2 [facility] Chem S GFR/1.73 sq M.predicted among non-blacks MDRD (S/P/Bld) [Vol rate/Area] 40 mL/min/1.73 m2 Low >=59mL/min /1.73 m2 [facility] Chem S Glucose [Mass/Vol] 92 mg/dL Normal 55 - 199 mg/dL [facility] Magnesium [Mass/Vol] 2.0 mg/dL Normal 1.3 - 2 .4 mg/dL [facility] Potassium [Moles/Vol] 4.1 mmol/L Normal 3.5 - 5.3 mmol/L [facility] Remisol Urea nitrogen [Mass/Vol] 18 mg/dL Normal 5 - 21 mg/dL [facility] Urea nitrogen/Creatinine [Mass ratio] 14 mg/mg Normal 10 - 20 [facility] CHEMISTRYOrdered By: Sabi Pardo se on 04-18-2022 Osmolality [Osmolality] 272 mosm/kg Low 275 - 295 mOsm/kg [facility] UA SS CHEMISTRYOrdered By: Kris marquez on 04-17-2022 Sodium (U) [Moles/Vol] 82 mmol/L Invalid Interpretation Code [facility] U Osmolality 312 mOsm/kg Normal 50 - 1400 mOsm/kg [facility] Man UA SS CHEMISTRYOrdered By: SYSTEM SYSTEM on 04-17-2022 Troponin I.cardiac [Mass/Vol] 2.40 pg/mL Low 10.10 - 27.10 pg/mL [facility] Troponin I.cardiac [Mass/Vol] pg/mL Low 10.10 - 27.10 pg/mL [facility] Remisol Troponin I.cardiac [Mass/Vol] 3.00 pg/mL Low 10.10 - 27.10 pg/mL [facility] Anion gap [Moles/Vol] 12 mmol/L Normal 6 - 16 mEq/L [facility] Calcium [Mass/Vol] 8.9 mg/dL Normal 8.9 - 11. 1 mg/dL [facility] Chloride [Moles/Vol] 88 mmol/L Low 101 - 1 11 mmol/L [facility] CO2 [Moles/Vol] 28 mmol/L Normal 21 - 31 mmol/L [facility] Creatinine [Mass/Vol] 1.1 mg/dL Normal 0.5 - 1.3 mg/dL [facility] GFR/1.73 sq M.predicted among blacks MDRD (S/P/Bld) [Vol rate/Area] 59 mL/min/1.73 m2 Normal >=59mL/min /1.73 m2 [facility] Chem S GFR/1.73 sq M.predicted among non-blacks MDRD (S/P/Bld) [Vol rate/Area] 49 mL/min/1.73 m2 Low >=59mL/min /1.73 m2 [facility] Chem S Glucose [Mass/Vol] 100 mg/dL Normal 55 - 199 mg/dL [facility] Potassium [Moles/Vol] 4.3 mmol/L Normal 3.5 - 5.3 mmol/L [facility] Urea nitrogen [Mass/Vol] 14 mg/dL Normal 5 - 21 mg/dL [facility] Urea nitrogen/Creatinine [Mass ratio] 13 mg/mg Normal 10 - 20 [facility] HEMATOLOGYOrdered By: SYSTEM SYSTEM on 04-17-2022 Basophils/100 WBC (Bld) 2.1 % High 0.0 - 2.0 % [facility] Basophils/Leukocytes Auto (Bld) [Pure # fraction] 0.2 E9/L Normal 0.0 - 0.2 E9/L [facility] Eosinophils/100 WBC (Bld) 2.8 % Normal 0.0 - 8.0 % [facility] Eosinophils/Leukocytes Auto (Bld) [Pure # fraction] 0.2 E9/L Normal 0.0 - 0.5 E9/L [facility] Lymphocytes/100 WBC (Bld) 26.9 % Normal 14.0 - 50.0 % [facility] Lymphocytes/Leukocytes Auto (Bld) [Pure # fraction] 2.1 E9/L Normal 1.0 - 4.0 E9/L [facility] Monocytes/100 WBC (Bld) 10.8 % Normal 4.0 - 14.0 % [facility] Monocytes/Leukocytes Auto (Bld) [Pure # fraction] 0.8 E9/L Normal 0.2 - 1.0 E9/L [facility] Neutrophils/100 WBC (Bld) 57.4 % Normal 36.0 - 75.0 % [facility] Neutrophils/Leukocytes Auto (Bld) [Pure # fraction] 4.5 E9/L Normal 2.0 - 7.5 E9/L [facility] HEMATOLOGYOrdered By: Chantell Frias on 04-17-2022 Erythrocyte distribution width (RBC) [Ratio] 12.8 % Normal 10.9 - 14.2 % [facility] Hematocrit (Bld) [Volume fraction] 37.6 % Normal 34.0 - 46.0 % [facility] Hemoglobin (Bld) [Mass/Vol] 12.5 g/dL Normal 12.0 - 16.0 gm/dL [facility] MCH (RBC) [Entitic mass] 30.8 pg Normal 27.0 - 34.0 pg [facility] MCHC (RBC) [Mass/Vol] 33.2 g/dL Normal 31.4 - 36.0 gm/dL [facility] MCV (RBC) [Entitic vol] 92.6 fL Normal 80.0 - 100.0 fL [facility] Platelet mean volume (Bld) [Entitic vol] 7.8 fL Normal 6.4 - 10.8 fL [facility] Platelets (Bld) [#/Vol] 248.0 E9/L Normal 150.0 -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 mg/mg Low 10 - 20 [facility] HEMATOLOGYOrdered By: Jovanna Harding on 12-16-2021 Hemoglobin (Bld) [Mass/Vol] 10.2 g/dL Low 12.0 - 16.0 gm/dL [facility] Erythrocyte distribution width (RBC) [Ratio] 14.5 % High 10.9 - 14.2 % [facility] Hematocrit (Bld) [Volume fraction] 30.5 % Low 34.0 - 46.0 % [facility] Hemoglobin (Bld) [Mass/Vol] 9.9 g/dL Low 12.0 - 16.0 gm/dL [facility] MCH (RBC) [Entitic mass] 27.9 pg Normal 27.0 - 34.0 pg [facility] MCHC (RBC) [Mass/Vol] 32.4 g/dL Normal 31.4 - 36.0 gm/dL [facility] MCV (RBC) [Entitic vol] 86.1 fL Normal 80.0 - 100.0 fL [facility] Platelet mean volume (Bld) [Entitic vol] 6.5 fL Normal 6.4 - 10.8 fL [facility] Platelets (Bld) [#/Vol] 251.0 E9/L Normal 150.0 - 500.0 E9/L [facility] RBC (Bld) [#/Vol] 3.6 E12/L Low 4.3 - 5.9 E12/L [facility] WBC corrected for nucl RBC Auto (Bld) [#/Vol] 5.4 E9/L Normal 4.0 - 11.0 E9/L [facility] HEMATOLOGYOrdered By: SYSTEM SYSTEM on 12-16-2021 Basophils/100 WBC (Bld) 1.3 % Normal 0.0 - 2.0 % [facility] Basophils/Leukocytes Auto (Bld) [Pure # fraction] 0.1 E9/L Normal 0.0 - 0.2 E9/L [facility] Eosinophils/100 WBC (Bld) 0.8 % Normal 0.0 - 8.0 % [facility] Eosinophils/Leukocytes Auto (Bld) [Pure # fraction] 0.0 E9/L Normal 0.0 - 0.5 E9/L [facility] Lymphocytes/100 WBC (Bld) 17.8 % Normal 14.0 - 50.0 % [facility] Lymphocytes/Leukocytes Auto (Bld) [Pure # fraction] 1.0 E9/L Normal 1.0 - 4.0 E9/L [facility] Monocytes/100 WBC (Bld) 9.7 % Normal 4.0 - 14.0 % [facility] Monocytes/Leukocytes Auto (Bld) [Pure # fraction] 0.5 E9/L Normal 0.2 - 1.0 E9/L [facility] Neutrophils/100 WBC (Bld) 70.4 % Normal 36.0 - 75.0 % [facility] Neutrophils/Leukocytes Auto (Bld) [Pure # fraction] 3.8 E9/L Normal 2.0 - 7.5 E9/L [facility] URINALYSISOrdered By: Lilibeth Farrell on 12-16-2021 Bilirubin Ql (U) Negative (12/16/21 8:00 AM) Normal Negative [facility] Clarity (U) Clear (12/16/21 8:00 AM) Normal Clear [facility] Color (U) Yellow (12/16/21 8:00 AM) Normal Yellow [facility] Epithelial cells.squamous LM.HPF (Urine sed) [#/Area] 0-2 /HPF Normal 0-2/HPF [facility] Glucose Test strip (U) [Mass/Vol] Negative (12/16/21 8:00 AM) Normal Negative [facility] Hemoglobin Ql (U) Negative (12/16/21 8:00 AM) Normal Negative [facility] Ketones (U) [Mass/Vol] Negative (12/16/21 8:00 AM) Normal Negative [facility] Ord.plasma/Ord .RBC (Bld) [Mass ratio] 0-3 /HPF Normal 0-3/HPF [facility] Nitrite Ql (U) Negative (12/16/21 8:00 AM) Normal Negative [facility] pH (U) 7.5 *NA* (12/16/21 8:00 AM) Invalid Interpretation Code 5.0 - 9.0 [facility] Protein (U) [Mass/Vol] Negative (12/16/21 8:00 AM) Normal Negative [facility] Specific gravity (U) [Rel density] 1.015 *NA* (12/16/21 8:00 AM) Invalid Interpretation Code 1.005 - 1.030 [facility] UA Spec Desc Clean Catch (12/16/21 8:00 AM) Normal [facility] Urobilinogen Qn (U) 0.8501022 {Rolan'U}/dL Normal 0.0 - 1.0 EU/dL [facility] WBC Auto Ql (U) Negative (12/16/21 8:00 AM) Normal Negative [facility] WBC LM.HPF (Urine sed) [#/Area] 0-5 /HPF Normal 0-5/HPF [facility] URINALYSISOrdered By: Klaudia Painter on 12-15-2021 Bilirubin Ql (U) Negative (12/15/21 5:15 PM) Normal Negative [facility] Clarity (U) Clear (12/15/21 5:15 PM) Normal Clear [facility] Color (U) Yellow (12/15/21 5:15 PM) Normal Yellow [facility] Epithelial cells.squamous LM.HPF (Urine sed) [#/Area] 0-2 /HPF Normal 0-2/HPF [facility] Glucose Test strip (U) [Mass/Vol] Negative (12/15/21 5:15 PM) Normal Negative [facility] Hemoglobin Ql (U) Negative (12/15/21 5:15 PM) Normal Negative [facility] Ketones (U) [Mass/Vol] Negative (12/15/21 5:15 PM) Normal Negative [facility] Ord.plasma/Ord .RBC (Bld) [Mass ratio] 0-3 /HPF Normal 0-3/HPF [facility] Nitrite Ql (U) Negative (12/15/21 5:15 PM) Normal Negative [facility] pH (U) 7.0 *NA* (12/15/21 5:15 PM) Invalid Interpretation Code 5.0 - 9.0 [facility] Protein (U) [Mass/Vol] Negative (12/15/21 5:15 PM) Normal Negative [facility] Specific gravity (U) [Rel density] 1.010 *NA* (12/15/21 5:15 PM) Invalid Interpretation Code 1.005 - 1.030 [facility] UA Spec Desc Clean Catch (12/15/21 5:15 PM) Normal [facility] Urobilinogen Qn (U) 0.4625157 {Rolan'U}/dL Normal 0.0 - 1.0 EU/dL [facility] WBC Auto Ql (U) Negative (12/15/21 5:15 PM) Normal Negative [facility] WBC LM.HPF (Urine sed) [#/Area] 0-5 /HPF Normal 0-5/HPF [facility] URINALYSISOrdered By: Sabi sky on 12-14-2021 Bilirubin Ql (U) Negative (12/14/21 9:08 AM) Normal Negative [facility] Clarity (U) Clear (12/14/21 9:08 AM) Normal Clear [facility] Color (U) DARK YELLO Invalid Interpretation Code [facility] Crystals LM Ql (Urine sed) Present (12/14/21 9:08 AM) Normal [facility] Epithelial cells.squamous LM.HPF (Urine sed) [#/Area] 0-2 /HPF Normal 0-2/HPF [facility] Glucose Test strip (U) [Mass/Vol] Negative (12/14/21 9:08 AM) Normal Negative [facility] Hemoglobin Ql (U) Negative (12/14/21 9:08 AM) Normal Negative [facility] Ketones (U) [Mass/Vol] Negative (12/14/21 9:08 AM) Normal Negative [facility] Ord.plasma/Ord .RBC (Bld) [Mass ratio] 0-3 /HPF Normal 0-3/HPF [facility] Nitrite Ql (U) Negative (12/14/21 9:08 AM) Normal Negative [facility] pH (U) 7.5 *NA* (12/14/21 9:08 AM) Invalid Interpretation Code 5.0 - 9.0 [facility] Protein (U) [Mass/Vol] Negative (12/14/21 9:08 AM) Normal Negative [facility] Specific gravity (U) [Rel density] 1.015 *NA* (12/14/21 9:08 AM) Invalid Interpretation Code 1.005 - 1.030 [facility] UA Spec Desc Clean Catch (12/14/21 9:08 AM) Normal [facility] Urobilinogen Qn (U) 0.8907794 {Rolan'U}/dL Normal 0.0 - 1.0 EU/dL [facility] WBC Auto Ql (U) Negative (12/14/21 9:08 AM) Normal Negative [facility] WBC LM.HPF (Urine sed) [#/Area] 0-5 /HPF Normal 0-5/HPF [facility] URINE CULTUREon 12-06-2021 Bacteria identified Cx Nom (U) No growth (<1,000 CFU/ml) [facility] Urinalysis complete panel (U )on 12-05-2021 Bilirubin Ql (U) Negative Negative [facility] Clarity (Unsp spec) Clear Clear [facility] Color (U) Dark Latasha Abnormal Yellow [facility] Glucose Test strip (U) [Mass/Vol] Negative Negative [facility] Hemoglobin Ql (U) Negative Negative [facility] Ketones Ql (U) Negative Negative [facility] Leukocyte esterase Test strip Ql (U) Negative Negative [facility] Nitrite Ql (U) Positive Abnormal Negative [facility] pH (U) 7.0 [pH] 5.0 - 8.0 [facility] Protein (U) [Mass/Vol] Negative Negative Cl [facility] RBC LM.HPF (Urine sed) [#/Area] 0-3 /HPF 0-3 /HPF [facility] Specific gravity (U) [Rel density] 1.006 1.005 - 1.030 [facility] Urobilinogen Ql (U) 2+ Abnormal Negative [facility] WBC LM.HPF (Urine sed) [#/Area] 0-5 /HPF 0-5 /HPF [facility] CULTURE URINEon 12-03-2021 CULTURE URINE Culture Observations : NO GROWTH. Normal [facility] Comment on above: Performed By: #### TAMMIE LOVELL #### [facility] [address] [address] [address] Stevie Torres ER URINE PROFILEon 2 Bilirubin Ql (U) Negative Normal NEGATIVE [facility] Comment on above: Performed By: #### TAMMIE LOVELL #### [facility] [address] [address] [address] Stevie Torres Clarity (U) CLEAR Normal CLEAR [facility] Comment on above: Performed By: #### TAMMIE LOVELL #### [facility] [address] [address] [address] Stevie Torres Color (U) DK. ORANGE Abnormal YELLOW [facility] Comment on above: Performed By: #### TAMMIE LOVELL #### [facility] [address] [place] [address] Dr. Stevie DUNN A micrscopic examina tion will be performed if indicated. Normal [facility] Comment on above: Performed By: #### FRITZ LOVELLRO #### [facility] [address] [place] [address] Dr. Stevie Torres Glucose Ql (U) 100 mg/dl Abnormal NEGATIVE [facility] Comment on above: Performed By: #### FRITZ LOVELLRO #### [facility] [address] [place] [address] Dr. Stevie Torres Hemoglobin Ql (U) SMALL Abnormal NEGATIVE [facility] Comment on above: Performed By: #### FRITZ LOVELLRO #### [facility] [address] [place] [address] Dr. Stevie Torres Ketones Ql (U) Negative Normal NEGATIVE [facility] Comment on above: Performed By: #### FRITZ LOVELLRO #### [facility] [address] [place] [address] Dr. Stevie Torres LEUKOCYTES Negative Normal NEGATIVE [facility] Comment on above: Performed By: #### FRITZ LOVELLRO #### [facility] [address] [place] [address] Dr. Stevie Torres Nitrite Ql (U) Positive Abnormal NEGATIVE [facility] Comment on above: Performed By: #### FRITZ LOVELLRO #### [facility] [address] [place] [address] Dr. Stevie Torres pH (U) 7.0 [pH] Normal 5-9 [facility] Comment on above: Performed By: #### FRITZ LOVELLRO #### [facility] [address] [place] [address] Dr. Stevie Torres SPEC GRAVITY <=1.005 Abnormal 1.005-<=1. 025 [facility] Comment on above: Performed By: #### FRITZ LOVELLRO #### [facility] [address] [place] [address] Dr. Stevie Torres UA PROTEIN Negative Normal NEGATIVE/ TRACE [facility] Comment on above: Performed By: #### E RUR, UMICRO #### [facility] [address] [place] [address] Dr. Stevie Torres UR MICRO IND INDICATED Normal [facility] Comment on above: Performed By: #### E RUR, UMICRO #### [facility] [address] [place] [address] Dr. Stevie Torres Urobilinogen Qn (U) 1.0 {Rolan'U}/dL Normal 0.2 - 1. 0 [facility] Comment on above: Performed By: #### E RUR, UMICRO #### [facility] [address] [place] [address] Dr. Stevie Torres URINE MICROSCOPIC ONLYon BACTERIA TRACE Abnormal NONE SEEN [facility] Comment on above: Performed By: #### E RUR, UMICRO #### [facility] [address] [place] [address] Dr. Stevie Torres Bacteria identified Cx Nom (U) INDICATED Normal [facility] Comment on above: Performed By: #### E RUR, UMICRO #### [facility] [address] [place] [address] Dr. Stevie Torres CAST NONE SEEN Normal NONE SEEN [facility] Comment on above: Performed By: #### E RUR, UMICRO #### [facility] [address] [place] [address] Dr. Stevie Torres Crystals LM Nom (Urine sed) NONE SEEN Normal NONE SEEN [facility] Comment on above: Performed By: #### E RUR, UMICRO #### [facility] [address] [place] [address] Dr. Stevie Torres Epithelial cells LM Ql (Urine sed) FEW Abnormal NONE SEEN /RARE [facility] Comment on above: Performed By: #### E RUR, UMICRO #### [facility] [address] [place] [address] Dr. Stevie Torres MUCOUS NONE SEEN Normal NONE SEEN [facility] Comment on above: Performed By: #### E RUR, UMICRO #### [facility] [address] [address] [address] Stevie Torres RBC 0-2 Normal 0-2 [facility] Comment on above: Performed By: #### TAMMIE LOVELL #### [facility] [id number] Stevie Torres WBC NONE SEEN Normal NONE SEEN [facility] Comment on above: Performed By: #### TAMMIE LOVELL #### [facility] [address] [address] [address] Stevie Torres URINALYSISOrdered By: Kris will on 11-21-2021 Bilirubin Ql (U) Negative (11/21/21 8:15 PM) Normal Negative [facility] Clarity (U) Clear (11/21/21 8:15 PM) Normal Clear [facility] Color (U) [place] *ABN* (11/21/21 8:15 PM) Invalid Interpretation Code Yellow [facility] Crystals LM Ql (Urine sed) Present (11/21/21 8:15 PM) Normal [facility] Epithelial cells.squamous LM.HPF (Urine sed) [#/Area] 0-2 /HPF Normal 0-2/HPF [facility] Glucose Test strip (U) [Mass/Vol] 1+ *ABN* (11/21/21 8:15 PM) Invalid Interpretation Code Negative [facility] Hemoglobin Ql (U) Negative (11/21/21 8:15 PM) Normal Negative [facility] Ketones (U) [Mass/Vol] Negative (11/21/21 8:15 PM) Normal Negative [facility] Ord.plasma/Ord .RBC (Bld) [Mass ratio] 0-3 /HPF Normal 0-3/HPF [facility] Nitrite Ql (U) Positive *ABN* (11/21/21 8:15 PM) Invalid Interpretation Code Negative [facility] pH (U) 6.0 *NA* (11/21/21 8:15 PM) Invalid Interpretation Code 5.0 - 9.0 [facility] Protein (U) [Mass/Vol] 1+ *ABN* (11/21/21 8:15 PM) Invalid Interpretation Code Negative [facility] Specific gravity (U) [Rel density] <=1.005 *NA* (11/21/21 8:15 PM) Invalid Interpretation Code 1.005 - 1.030 [facility] UA Spec Desc Clean Catch (11/21/21 8:15 PM) Normal [facility] Urobilinogen Qn (U) 4.3346591 {Rolan'U}/dL Inv alid Interpretation Code 0.0 - 1.0 EU/dL [facility] WBC Auto Ql (U) 1+ *ABN* (11/21/21 8:15 PM) Invalid Interpretation Code Negative [facility] WBC LM.HPF (Urine sed) [#/Area] 0-5 /HPF Normal 0-5/HPF [facility] URINALYSISOrdered By: Nicolasa fletcher on 11-16-2021 Bacteria LM Ql (Urine sed) 1+ /HPF Invalid Interpretation Code Trace/HPF [facility] Bilirubin Ql (U) Negative (11/16/21 3:42 PM) Normal Negative [facility] Clarity (U) Clear (11/16/21 3:42 PM) Normal Clear [facility] Color (U) [place] *ABN* (11/16/21 3:42 PM) Invalid Interpretation Code Yellow [facility] Crystals LM Ql (Urine sed) Present (11/16/21 3:42 PM) Normal [facility] Epithelial cells.squamous LM.HPF (Urine sed) [#/Area] 0-2 /HPF Normal 0-2/HPF [facility] Glucose Test strip (U) [Mass/Vol] Trace *ABN* (11/16/21 3:42 PM) Invalid Interpretation Code Negative [facility] Hemoglobin Ql (U) Negative (11/16/21 3:42 PM) Normal Negative [facility] Ketones (U) [Mass/Vol] Negative (11/16/21 3:42 PM) Normal Negative [facility] Ord.plasma/Ord .RBC (Bld) [Mass ratio] 0-3 /HPF Normal 0-3/HPF [facility] Nitrite Ql (U) Positive *ABN* (11/16/21 3:42 PM) Invalid Interpretation Code Negative [facility] pH (U) 6.0 *NA* (11/16/21 3:42 PM) Invalid Interpretation Code 5.0 - 9.0 [facility] UA Auto SS Protein (U) [Mass/Vol] Negative (11/16/21 3:42 PM) Normal Negative [facility] UA Auto SS Specific gravity (U) [Rel density] <=1.005 *NA* (11/16/21 3:42 PM) Invalid Interpretation Code 1.005 - 1.030 [facility] Auto SS UA Spec Desc Clean Catch (11/16/21 3:42 PM) Normal [facility] Auto SS Urobilinogen Qn (U) 1.0521707 {Rolan'U}/dL Normal 0.0 - 1.0 EU/dL [facility] Auto SS WBC Auto Ql (U) 1+ *ABN* (11/16/21 3:42 PM) Invalid Interpretation Code Negative [facility]A Auto SS WBC LM.HPF (Urine sed) [#/Area] 0-5 /HPF Normal 0-5/HPF [facility]A Auto SS CHEMISTRYOrdered By: SYSTEM SYSTEM on 11-08-2021 Anion gap [Moles/Vol] 13 mmol/L Normal 6 - 16 mEq/L [facility] Calcium [Mass/Vol] 9.3 mg/dL Normal 8.9 - 11. 1 mg/dL [facility] Chloride [Moles/Vol] 92 mmol/L Low 101 - 1 11 mmol/L [facility] CO2 [Moles/Vol] 27 mmol/L Normal 21 - 31 mmol/L [facility] Creatinine [Mass/Vol] 1.2 mg/dL Normal 0.5 - 1.3 mg/dL [facility] GFR/1.73 sq M.predicted among blacks MDRD (S/P/Bld) [Vol rate/Area] 53 mL/min/1.73 m2 Low >=59mL/min /1.73 m2 [facility] S GFR/1.73 sq M.predicted among non-blacks MDRD (S/P/Bld) [Vol rate/Area] 44 mL/min/1.73 m2 Low >=59mL/min /1.73 m2 [facility] Chem S Glucose [Mass/Vol] 118 mg/dL Normal 55 - 199 mg/dL [facility] Potassium [Moles/Vol] 4.0 mmol/L Normal 3.5 - 5.3 mmol/L [facility] Sodium [Moles/Vol] 128 mmol/L Low 135 - 145 mmol/L [facility] Troponin I.cardiac [Mass/Vol] pg/mL Low 10.10 - 27.10 pg/mL [facility] Urea nitrogen [Mass/Vol] 9 mg/dL Normal 5 - 21 mg/dL [facility] Urea nitrogen/Creatinine [Mass ratio] 8 mg/mg Low 10 - 20 [facility] CHEMISTRYOrdered By: Lab ROP User on 11-08-2021 Glucose [Mass/Vol] 106 mg/dL High 55 - 99 mg/dL FT POC Subsection Comment on above: Result Comment: Christina perea RN/ POC Device SN [id number] Invalid Interpretation Code [facility] POC Subsection POC User ID [id number] Invalid Interpretation Code [facility] POC Subsection POC Username EMETERIO STOCK Invalid Interpretation Code [facility] POC Subsection HEMATOLOGYOrdered By: SYSTEM SYSTEM on 11-08-2021 Basophils/100 WBC (Bld) 2.1 % High 0.0 - 2.0 % [facility] Basophils/Leukocytes Auto (Bld) [Pure # fraction] 0.2 E9/L Normal 0.0 - 0.2 E9/L [facility] Eosinophils/100 WBC (Bld) 1.6 % Normal 0.0 - 8.0 % [facility] Eosinophils/Leukocytes Auto (Bld) [Pure # fraction] 0.1 E9/L Normal 0.0 - 0.5 E9/L [facility] Lymphocytes/100 WBC (Bld) 21.7 % Normal 14.0 - 50.0 % [facility] Lymphocytes/Leukocytes Auto (Bld) [Pure # fraction] 1.5 E9/L Normal 1.0 - 4.0 E9/L [facility] Monocytes/100 WBC (Bld) 10.8 % Normal 4.0 - 14.0 % [facility] Monocytes/Leukocytes Auto (Bld) [Pure # fraction] 0.8 E9/L Normal 0.2 - 1.0 E9/L [facility] Neutrophils/100 WBC (Bld) 63.8 % Normal 36.0 - 75.0 % [facility] Neutrophils/Leukocytes Auto (Bld) [Pure # fraction] 4.5 E9/L Normal 2.0 - 7.5 E9/L [facility] HEMATOLOGYOrdered By: Maggie Matthews on 11-08-2021 Erythrocyte distribution width (RBC) [Ratio] 12.9 % Normal 10.9 - 14.2 % [facility] Hematocrit (Bld) [Volume fraction] 40.4 % Normal 34.0 - 46.0 % [facility] Hemoglobin (Bld) [Mass/Vol] 13.0 g/dL Normal 12.0 - 16.0 gm/dL [facility] MCH (RBC) [Entitic mass] 28.0 pg Normal 27.0 - 34.0 pg [facility] MCHC (RBC) [Mass/Vol] 32.1 g/dL Normal 31.4 - 36.0 gm/dL [facility] MCV (RBC) [Entitic vol] 87.1 fL Normal 80.0 - 100.0 fL [facility] Platelet mean volume (Bld) [Entitic vol] 8.3 fL Normal 6.4 - 10.8 fL [facility] Platelets (Bld) [#/Vol] 257.0 E9/L Normal 150.0 - 500.0 E9/L [facility] RBC (Bld) [#/Vol] 4.6 E12/L Normal 4.3 - 5.9 E12/L [facility] WBC corrected for nucl RBC Auto (Bld) [#/Vol] 7.1 E9/L Normal 4.0 - 11.0 E9/L [facility] URINALYSISOrdered By: Kris will on 11-08-2021 Bacteria LM Ql (Urine sed) 2+ /HPF Invalid Interpretation Code Trace/HPF [facility] Bilirubin Ql (U) Negative (11/08/21 5:33 PM) Normal Negative [facility] Clarity (U) Clear (11/08/21 5:33 PM) Normal Clear [facility] Color (U) [place] *ABN* (11/08/21 5:33 PM) Invalid Interpretation Code Yellow [facility] Crystals LM Ql (Urine sed) Present (11/08/21 5:33 PM) Normal [facility] Epithelial cells.squamous LM.HPF (Urine sed) [#/Area] 0-2 /HPF Normal 0-2/HPF [facility] Glucose Test strip (U) [Mass/Vol] Trace *ABN* (11/08/21 5:33 PM) Invalid Interpretation Code Negative [facility] Hemoglobin Ql (U) Trace *ABN* (11/08/21 5:33 PM) Invalid Interpretation Code Negative [facility] Ketones (U) [Mass/Vol] Negative (11/08/21 5:33 PM) Normal Negative [facility] Ord.plasma/Ord .RBC (Bld) [Mass ratio] 0-3 /HPF Normal 0-3/HPF [facility] Mucus Ql (Urine sed) 1+ (11/08/21 5:33 PM) Normal [facility] Nitrite Ql (U) Positive *ABN* (11/08/21 5:33 PM) Invalid Interpretation Code Negative [facility] pH (U) 6.5 *NA* (11/08/21 5:33 PM) Invalid Interpretation Code 5.0 - 9.0 [facility] Protein (U) [Mass/Vol] Trace *ABN* (11/08/21 5:33 PM) Invalid Interpretation Code Negative [facility] Specific gravity (U) [Rel density] <=1.005 *NA* (11/08/21 5:33 PM) Invalid Interpretation Code 1.005 - 1.030 [facility] UA Spec Desc Random Urine (11/08/21 5:33 PM) Normal [facility] Urobilinogen Qn (U) 2.7255781 {Rolan'U}/dL Inv alid Interpretation Code 0.0 - 1.0 EU/dL [facility] WBC Auto Ql (U) 3+ *ABN* (11/08/21 5:33 PM) Invalid Interpretation Code Negative [facility] WBC LM.HPF (Urine sed) [#/Area] 6-15 /HPF Invalid Interpretation Code 0-5/HPF [facility] URINALYSISOrdered By: Leilani Galloway on 11-06-2021 Bacteria LM Ql (Urine sed) 2+ /HPF Invalid Interpretation Code Trace/HPF [facility] Bilirubin Ql (U) Negative (11/06/21 6:27 PM) Normal Negative [facility] Clarity (U) Cloudy *ABN* (11/06/21 6:27 PM) Invalid Interpretation Code Clear [facility] Color (U) [place] Invalid Interpretation Code [facility] Crystals LM Ql (Urine sed) Present (11/06/21 6:27 PM) Normal [facility] SS Epithelial cells.squamous LM.HPF (Urine sed) [#/Area] 0-2 /HPF Normal 0-2/HPF [facility] Glucose Test strip (U) [Mass/Vol] Negative (11/06/21 6:27 PM) Normal Negative [facility] Hemoglobin Ql (U) Trace *ABN* (11/06/21 6:27 PM) Invalid Interpretation Code Negative [facility] Ketones (U) [Mass/Vol] Negative (11/06/21 6:27 PM) Normal Negative [facility] Ord.plasma/Ord .RBC (Bld) [Mass ratio] 4-20 /HPF Normal 0-3/HPF [facility] Mucus Ql (Urine sed) Trace (11/06/21 6:27 PM) Normal [facility] Nitrite Ql (U) Negative (11/06/21 6:27 PM) Normal Negative [facility] pH (U) 8.0 *NA* (11/06/21 6:27 PM) Invalid Interpretation Code 5.0 - 9.0 [facility] Protein (U) [Mass/Vol] Negative (11/06/21 6:27 PM) Normal Negative [facility] SS Specific gravity (U) [Rel density] 1.010 *NA* (11/06/21 6:27 PM) Invalid Interpretation Code 1.005 - 1.030 [facility] UA Spec Desc Clean Catch (11/06/21 6:27 PM) Normal [facility] Urobilinogen Qn (U) 0.2575805 {Rolan'U}/dL Normal 0.0 - 1.0 EU/dL [facility] WBC Auto Ql (U) 2+ *ABN* (11/06/21 6:27 PM) Invalid Interpretation Code Negative [facility] WBC LM.HPF (Urine sed) [#/Area] 0-5 /HPF Normal 0-5/HPF [facility] SS CHEMISTRYOrdered By: SYSTEM SYSTEM on 10-27-2021 Albumin [Mass/Vol] 4.4 g/dL Normal 3.3 - 5.0 gm/dL [facility] Albumin/Globulin [Mass ratio] 1.4 {ratio} Normal 1.1 - 2.2 [facility] ALP [Catalytic activity/Vol] 81 [iU]/d Normal 21 - 98 Int._Unit/ L [facility] ALT No additional P-5'-P [Catalytic activity/Vol] 15 [iU]/d Normal 6 - 46 Int._Unit/ L [facility] Anion gap [Moles/Vol] 12 mmol/L Normal 6 - 16 mEq/L [facility] AST [Catalytic activity/Vol] 30 [iU]/d Normal 5 - 43 Int._Unit/ L [facility] Bilirubin [Mass/Vol] 0.7 mg/dL Normal 0.0 - 1 .1 mg/dL [facility] Bilirubin.direct [Mass/Vol] mg/dL Normal 0.1 - 0.4 mg/dL [facility] Bilirubin.indirect [Mass or moles/Vol] Unable to Calculate mg/dL Invalid Interpretation Code 0.1 - 0.9 mg/dL [facility] Calcium [Mass/Vol] 9.2 mg/dL Normal 8.9 - 11. 1 mg/dL [facility] Chloride [Moles/Vol] 90 mmol/L Low 101 - 1 11 mmol/L [facility] CO2 [Moles/Vol] 28 mmol/L Normal 21 - 31 mmol/L [facility] Creatinine [Mass/Vol] 1.1 mg/dL Normal 0.5 - 1.3 mg/dL [facility] GFR/1.73 sq M.predicted among blacks MDRD (S/P/Bld) [Vol rate/Area] 59 mL/min/1.73 m2 Normal >=59mL/min /1.73 m2 [facility] S GFR/1.73 sq M.predicted among non-blacks MDRD (S/P/Bld) [Vol rate/Area] 49 mL/min/1.73 m2 Low >=59mL/min /1.73 m2 [facility] S Globulin (S) [Mass/Vol] 3.1 g/dL Normal 1.4 - 4.0 gm/dL [facility] Glucose [Mass/Vol] 132 mg/dL Normal 55 - 199 mg/dL [facility] Lipase [Catalytic activity/Vol] 32 U/L Normal 13 - 58 unit/L [facility] Potassium [Moles/Vol] 3.4 mmol/L Low 3.5 - 5.3 mmol/L [facility] Protein [Mass/Vol] 7.5 g/dL Normal 6.0 - 7.8 gm/dL [facility] Sodium [Moles/Vol] 127 mmol/L Low 135 - 145 mmol/L [facility] Troponin I.cardiac [Mass/Vol] 5.20 pg/mL Low 10.10 - 27.10 pg/mL [facility] Urea nitrogen [Mass/Vol] 6 mg/dL Normal 5 - 21 mg/dL [facility] Urea nitrogen/Creatinine [Mass ratio] 6 mg/mg Low 10 - 20 [facility] HEMATOLOGYOrdered By: SYSTEM SYSTEM on 10-27-2021 Basophils/100 WBC (Bld) 1.4 % Normal 0.0 - 2.0 % [facility] HemeAutoSS Basophils/Leukocytes Auto (Bld) [Pure # fraction] 0.1 E9/L Normal 0.0 - 0.2 E9/L [facility] HemeAutoSS Eosinophils/100 WBC (Bld) 0.4 % Normal 0.0 - 8.0 % [facility] HemeAutoSS Eosinophils/Leukocytes Auto (Bld) [Pure # fraction] 0.0 E9/L Normal 0.0 - 0.5 E9/L [facility] [facility] Lymphocytes/100 WBC (Bld) 14.2 % Normal 14.0 - 50.0 % [facility] Lymphocytes/Leukocytes Auto (Bld) [Pure # fraction] 1.2 E9/L Normal 1.0 - 4.0 E9/L [facility] Monocytes/100 WBC (Bld) 7.4 % Normal 4.0 - 14.0 % [facility] Monocytes/Leukocytes Auto (Bld) [Pure # fraction] 0.6 E9/L Normal 0.2 - 1.0 E9/L [facility] Neutrophils/100 WBC (Bld) 76.6 % High 36.0 - 75.0 % [facility] Neutrophils/Leukocytes Auto (Bld) [Pure # fraction] 6.7 E9/L Normal 2.0 - 7.5 E9/L [facility] HEMATOLOGYOrdered By: Jovanna Harding on 10-27-2021 Erythrocyte distribution width (RBC) [Ratio] 12.8 % Normal 10.9 - 14.2 % [facility] Hematocrit (Bld) [Volume fraction] 40.7 % Normal 34.0 - 46.0 % [facility] Hemoglobin (Bld) [Mass/Vol] 13.0 g/dL Normal 12.0 - 16.0 gm/dL [facility] MCH (RBC) [Entitic mass] 28.0 pg Normal 27.0 - 34.0 pg [facility] MCHC (RBC) [Mass/Vol] 32.0 g/dL Normal 31.4 - 36.0 gm/dL [facility] MCV (RBC) [Entitic vol] 87.3 fL Normal 80.0 - 100.0 fL [facility] Platelet mean volume (Bld) [Entitic vol] 6.9 fL Normal 6.4 - 10.8 fL [facility] Platelets (Bld) [#/Vol] 291.0 E9/L Normal 150.0 - 500.0 E9/L [facility] RBC (Bld) [#/Vol] 4.7 E12/L Normal 4.3 - 5.9 E12/L [facility] WBC corrected for nucl RBC Auto (Bld) [#/Vol] 8.7 E9/L Normal 4.0 - 11.0 E9/L [facility] URINALYSISOrdered By: Christelle taylor on 10-27-2021 Bacteria LM Ql (Urine sed) 1+ /HPF Invalid Interpretation Code Trace/HPF [facility] Auto SS Bilirubin Ql (U) Negative (10/27/21 10:44 AM) Normal Negative [facility] SS Clarity (U) Clear (10/27/21 10:44 AM) Normal Clear [facility] Auto SS Color (U) Yellow (10/27/21 10:44 AM) Normal Yellow [facility]A Auto SS Epithelial cells.squamous LM.HPF (Urine sed) [#/Area] 3-4 /HPF Normal 0-2/HPF [facility] SS Glucose Test strip (U) [Mass/Vol] Negative (10/27/21 10:44 AM) Normal Negative [facility] Auto SS Hemoglobin Ql (U) Trace *ABN* (10/27/21 10:44 AM) Invalid Interpretation Code Negative [facility] Auto SS Ketones (U) [Mass/Vol] Negative (10/27/21 10:44 AM) Normal Negative [facility]A Auto SS Ord.plasma/Ord .RBC (Bld) [Mass ratio] 0-3 /HPF Normal 0-3/HPF [facility] Auto SS Nitrite Ql (U) Negative (10/27/21 10:44 AM) Normal Negative [facility] Auto SS pH (U) 8.0 *NA* (10/27/21 10:44 AM) Invalid Interpretation Code 5.0 - 9.0 [facility] Auto SS Protein (U) [Mass/Vol] Negative (10/27/21 10:44 AM) Normal Negative [facility]A Auto SS Specific gravity (U) [Rel density] 1.020 *NA* (10/27/21 10:44 AM) Invalid Interpretation Code 1.005 - 1.030 [facility] Auto SS UA Spec Desc Clean Catch (10/27/21 10:44 AM) Normal [facility]A Auto SS Urobilinogen Qn (U) 0.3495122 {Rolan'U}/dL Normal 0.0 - 1.0 EU/dL [facility]A Auto SS WBC Auto Ql (U) Trace *ABN* (10/27/21 10:44 AM) Invalid Interpretation Code Negative [facility]A Auto SS WBC LM.HPF (Urine sed) [#/Area] 0-5 /HPF Normal 0-5/HPF [facility] Auto SS CHEMISTRYOrdered By: SYSTEM SYSTEM on 10-23-2021 Anion gap [Moles/Vol] 11 mmol/L Normal 6 - 16 mEq/L [facility] Rem[facility] Calcium [Mass/Vol] 9.1 mg/dL Normal 8.9 - 11. 1 mg/dL [facility] Chloride [Moles/Vol] 100 mmol/L Low 101 - 1 11 mmol/L [facility] CO2 [Moles/Vol] 29 mmol/L Normal 21 - 31 mmol/L [facility] Creatinine [Mass/Vol] 1.2 mg/dL Normal 0.5 - 1.3 mg/dL [facility] Rem[facility] GFR/1.73 sq M.predicted among blacks MDRD (S/P/Bld) [Vol rate/Area] 53 mL/min/1.73 m2 Low >=59mL/min /1.73 m2 [facility] Chem S GFR/1.73 sq M.predicted among non-blacks MDRD (S/P/Bld) [Vol rate/Area] 44 mL/min/1.73 m2 Low >=59mL/min /1.73 m2 [facility] Chem S Glucose [Mass/Vol] 98 mg/dL Normal 55 - 199 mg/dL [facility] Rem[facility] Potassium [Moles/Vol] 4.1 mmol/L Normal 3.5 - 5.3 mmol/L [facility] Rem[facility] Sodium [Moles/Vol] 136 mmol/L Normal 135 - 145 mmol/L [facility] Troponin I.cardiac [Mass/Vol] 3.10 pg/mL Low 10.10 - 27.10 pg/mL [facility] Urea nitrogen [Mass/Vol] 9 mg/dL Normal 5 - 21 mg/dL [facility] Urea nitrogen/Creatinine [Mass ratio] 8 mg/mg Low 10 - 20 [facility] Rem[facility] Anion gap [Moles/Vol] 14 mmol/L Normal 6 - 16 mEq/L [facility] Remisol Calcium [Mass/Vol] 9.3 mg/dL Normal 8.9 - 11. 1 mg/dL [facility] Rem[facility] Chloride [Moles/Vol] 95 mmol/L Low 101 - 1 11 mmol/L [facility] Rem[facility] CK [Catalytic activity/Vol] 110 [iU]/d Normal 14 - 261 Int._Unit/ L [facility] Rem[facility] CO2 [Moles/Vol] 25 mmol/L Normal 21 - 31 mmol/L [facility] Remisol Creatinine [Mass/Vol] 1.2 mg/dL Normal 0.5 - 1.3 mg/dL [facility] GFR/1.73 sq M.predicted among blacks MDRD (S/P/Bld) [Vol rate/Area] 53 mL/min/1.73 m2 Low >=59mL/min /1.73 m2 [facility] Chem S GFR/1.73 sq M.predicted among non-blacks MDRD (S/P/Bld) [Vol rate/Area] 44 mL/min/1.73 m2 Low >=59mL/min /1.73 m2 [facility] Chem S Glucose [Mass/Vol] 123 mg/dL Normal 55 - 199 mg/dL [facility] Remisol Magnesium [Mass/Vol] 2.2 mg/dL Normal 1.3 - 2 .4 mg/dL [facility] Remisol Potassium [Moles/Vol] 3.6 mmol/L Normal 3.5 - 5.3 mmol/L [facility] Remisol Sodium [Moles/Vol] 130 mmol/L Low 135 - 145 mmol/L [facility] Remisol Troponin I.cardiac [Mass/Vol] 2.90 pg/mL Low 10.10 - 27.10 pg/mL [facility] Remisol Urea nitrogen [Mass/Vol] 9 mg/dL Normal 5 - 21 mg/dL [facility] Remisol Urea nitrogen/Creatinine [Mass ratio] 8 mg/mg Low 10 - 20 [facility] Remisol CHEMISTRYOrdered By: Lab ROP User on 10-23-2021 Glucose [Mass/Vol] 111 mg/dL High 55 - 99 mg/dL [facility] POC Subsection Comment on above: Result Comment: Aleida steven Meter POC Device SN [id number] Invalid Interpretation Code [facility] POC Subsection POC User ID [id number] Invalid Interpretation Code [facility] POC Subsection POC Username SULTANAVALENTINO QUACH Invalid Interpretation Code [facility] POC Subsection COAGULATIONOrdered By: Luis Trotter on 10-23-2021 aPTT Coag (PPP) [Time] 31.4 s Normal 25.1 - 36.5 second(s) [facility] Auto Coag INR Coag (PPP) [Relative time] 1.0 {INR} Invalid Interpretation Code [facility] Auto Coag PT Coag (PPP) [Time] 11.4 s Normal 10.2 - 12.9 second(s) [facility] Auto Coag aPTT Coag (PPP) [Time] 31.7 s Normal 25.1 - 36.5 second(s) [facility] Auto Coag INR Coag (PPP) [Relative time] 1.0 {INR} Invalid Interpretation Code [facility] Auto Coag PT Coag (PPP) [Time] 11.6 s Normal 10.2 - 12.9 second(s) [facility] Auto Coag HEMATOLOGYOrdered By: SYSTEM SYSTEM on 10-23-2021 Basophils/100 WBC (Bld) 1.2 % Normal 0.0 - 2.0 % [facility] Basophils/Leukocytes Auto (Bld) [Pure # fraction] 0.1 E9/L Normal 0.0 - 0.2 E9/L [facility] Eosinophils/100 WBC (Bld) 2.8 % Normal 0.0 - 8.0 % [facility] Eosinophils/Leukocytes Auto (Bld) [Pure # fraction] 0.2 E9/L Normal 0.0 - 0.5 E9/L [facility] Lymphocytes/100 WBC (Bld) 22.3 % Normal 14.0 - 50.0 % [facility] Lymphocytes/Leukocytes Auto (Bld) [Pure # fraction] 1.4 E9/L Normal 1.0 - 4.0 E9/L [facility] Monocytes/100 WBC (Bld) 13.0 % Normal 4.0 - 14.0 % [facility] Monocytes/Leukocytes Auto (Bld) [Pure # fraction] 0.8 E9/L Normal 0.2 - 1.0 E9/L [facility] Neutrophils/100 WBC (Bld) 60.7 % Normal 36.0 - 75.0 % [facility] Neutrophils/Leukocytes Auto (Bld) [Pure # fraction] 3.8 E9/L Normal 2.0 - 7.5 E9/L [facility] Basophils/100 WBC (Bld) 0.4 % Normal 0.0 - 2.0 % [facility] Basophils/Leukocytes Auto (Bld) [Pure # fraction] 0.0 E9/L Normal 0.0 - 0.2 E9/L [facility] Eosinophils/100 WBC (Bld) 2.3 % Normal 0.0 - 8.0 % [facility] Eosinophils/Leukocytes Auto (Bld) [Pure # fraction] 0.2 E9/L Normal 0.0 - 0.5 E9/L [facility] Lymphocytes/100 WBC (Bld) 21.1 % Normal 14.0 - 50.0 % [facility] Lymphocytes/Leukocytes Auto (Bld) [Pure # fraction] 1.7 E9/L Normal 1.0 - 4.0 E9/L [facility] Monocytes/100 WBC (Bld) 11.0 % Normal 4.0 - 14.0 % [facility] Monocytes/Leukocytes Auto (Bld) [Pure # fraction] 0.9 E9/L Normal 0.2 - 1.0 E9/L [facility] Neutrophils/100 WBC (Bld) 65.2 % Normal 36.0 - 75.0 % [facility] Neutrophils/Leukocytes Auto (Bld) [Pure # fraction] 5.2 E9/L Normal 2.0 - 7.5 E9/L [facility] HEMATOLOGYOrdered By: Nicolasa fletcher on 10-23-2021 Erythrocyte distribution width (RBC) [Ratio] 12.5 % Normal 10.9 - 14.2 % [facility] Hematocrit (Bld) [Volume fraction] 37.6 % Normal 34.0 - 46.0 % [facility] Hemoglobin (Bld) [Mass/Vol] 12.0 g/dL Normal 12.0 - 16.0 gm/dL [facility] MCH (RBC) [Entitic mass] 28.0 pg Normal 27.0 - 34.0 pg [facility] MCHC (RBC) [Mass/Vol] 31.8 g/dL Normal 31.4 - 36.0 gm/dL [facility] MCV (RBC) [Entitic vol] 88.0 fL Normal 80.0 - 100.0 fL [facility] Platelet mean volume (Bld) [Entitic vol] 6.9 fL Normal 6.4 - 10.8 fL [facility] Platelets (Bld) [#/Vol] 250.0 E9/L Normal 150.0 - 500.0 E9/L [facility] RBC (Bld) [#/Vol] 4.3 E12/L Normal 4.3 - 5.9 E12/L [facility] WBC corrected for nucl RBC Auto (Bld) [#/Vol] 6.3 E9/L Normal 4.0 - 11.0 E9/L [facility] HEMATOLOGYOrdered By: Luis Trotter on 10-23-2021 Erythrocyte distribution width (RBC) [Ratio] 12.5 % Normal 10.9 - 14.2 % [facility] Hematocrit (Bld) [Volume fraction] 35.0 % Normal 34.0 - 46.0 % [facility] Hemoglobin (Bld) [Mass/Vol] 11.6 g/dL Low 12.0 - 16.0 gm/dL [facility] MCH (RBC) [Entitic mass] 29.0 pg Normal 27.0 - 34.0 pg [facility] MCHC (RBC) [Mass/Vol] 33.1 g/dL Normal 31.4 - 36.0 gm/dL [facility] MCV (RBC) [Entitic vol] 87.5 fL Normal 80.0 - 100.0 fL [facility] Platelet mean volume (Bld) [Entitic vol] 7.3 fL Normal 6.4 - 10.8 fL [facility] Platelets (Bld) [#/Vol] 253.0 E9/L Normal 150.0 - 500.0 E9/L [facility] RBC (Bld) [#/Vol] 4.0 E12/L Low 4.3 - 5.9 E12/L [facility] WBC corrected for nucl RBC Auto (Bld) [#/Vol] 8.0 E9/L Normal 4.0 - 11.0 E9/L [facility] URINALYSISOrdered By: Luis Trotter on 10-23-2021 Bacteria LM Ql (Urine sed) 2+ /HPF Invalid Interpretation Code Trace/HPF [facility] Bilirubin Ql (U) 1+ *ABN* (10/23/21 7:35 PM) Invalid Interpretation Code Negative [facility] SS Clarity (U) [place] Invalid Interpretation Code [facility]A Auto SS Color (U) [place] *ABN* (10/23/21 7:35 PM) Invalid Interpretation Code Yellow [facility]A Auto SS Epithelial cells.squamous LM.HPF (Urine sed) [#/Area] 3-4 /HPF Normal 0-2/HPF [facility] SS Glucose Test strip (U) [Mass/Vol] 1+ *ABN* (10/23/21 7:35 PM) Invalid Interpretation Code Negative [facility]A Auto SS Hemoglobin Ql (U) Trace *ABN* (10/23/21 7:35 PM) Invalid Interpretation Code Negative [facility] SS Ketones (U) [Mass/Vol] Negative (10/23/21 7:35 PM) Normal Negative [facility] Auto SS Ord.plasma/Ord .RBC (Bld) [Mass ratio] 0-3 /HPF Normal 0-3/HPF [facility] Auto SS Mucus Ql (Urine sed) Trace (10/23/21 7:35 PM) Normal [facility] Auto SS Nitrite Ql (U) Positive *ABN* (10/23/21 7:35 PM) Invalid Interpretation Code Negative [facility] Auto SS pH (U) 7.0 *NA* (10/23/21 7:35 PM) Invalid Interpretation Code 5.0 - 9.0 [facility] Auto SS Protein (U) [Mass/Vol] 1+ *ABN* (10/23/21 7:35 PM) Invalid Interpretation Code Negative [facility]A Auto SS Specific gravity (U) [Rel density] 1.020 *NA* (10/23/21 7:35 PM) Invalid Interpretation Code 1.005 - 1.030 [facility]A Auto SS UA Spec Desc Clean Catch (10/23/21 7:35 PM) Normal [facility]A Auto SS Urobilinogen Qn (U) 4.3256679 {Rolan'U}/dL Inv alid Interpretation Code 0.0 - 1.0 EU/dL [facility]A Auto SS WBC Auto Ql (U) 2+ *ABN* (10/23/21 7:35 PM) Invalid Interpretation Code Negative [facility]A Auto SS WBC LM.HPF (Urine sed) [#/Area] 6-15 /HPF Invalid Interpretation Code 0-5/HPF [facility] Auto SS URINALYSISOrdered By: Klaudia Painter on 10-20-2021 Bacteria LM Ql (Urine sed) 1+ /HPF Invalid Interpretation Code Trace/HPF [facility]A Auto SS Bilirubin Ql (U) Negative (10/20/21 7:35 AM) Normal Negative [facility]A Auto SS Clarity (U) Slightly Cloudy *ABN* (10/20/21 7:35 AM) Invalid Interpretation Code Clear [facility]A Auto SS Color (U) Yellow (10/20/21 7:35 AM) Normal Yellow [facility] UA Auto SS Epithelial cells.squamous LM.HPF (Urine sed) [#/Area] 0-2 /HPF Normal 0-2/HPF [facility] Auto SS Glucose Test strip (U) [Mass/Vol] Negative (10/20/21 7:35 AM) Normal Negative [facility]A Auto SS Hemoglobin Ql (U) 1+ *ABN* (10/20/21 7:35 AM) Invalid Interpretation Code Negative [facility]A Auto SS Ketones (U) [Mass/Vol] Negative (10/20/21 7:35 AM) Normal Negative [facility]A Auto SS Ord.plasma/Ord .RBC (Bld) [Mass ratio] 0-3 /HPF Normal 0-3/HPF [facility] Auto SS Nitrite Ql (U) Negative (10/20/21 7:35 AM) Normal Negative [facility]A Auto SS pH (U) 6.0 *NA* (10/20/21 7:35 AM) Invalid Interpretation Code 5.0 - 9.0 [facility]A Auto SS Protein (U) [Mass/Vol] Negative (10/20/21 7:35 AM) Normal Negative [facility]A Auto SS Specific gravity (U) [Rel density] <=1.005 *NA* (10/20/21 7:35 AM) Invalid Interpretation Code 1.005 - 1.030 [facility]A Auto SS UA Spec Desc Clean Catch (10/20/21 7:35 AM) Normal [facility]A Auto SS Urobilinogen Qn (U) 0.6617841 {Rolan'U}/dL Normal 0.0 - 1.0 EU/dL [facility]A Auto SS WBC Auto Ql (U) 3+ *ABN* (10/20/21 7:35 AM) Invalid Interpretation Code Negative [facility]A Auto SS WBC LM.HPF (Urine sed) [#/Area] 6-15 /HPF Invalid Interpretation Code 0-5/HPF [facility] Auto SS URINALYSISOrdered By: Leilani Galloway on 10-03-2021 Bilirubin Ql (U) Negative (10/03/21 10:33 PM) Normal Negative [facility]A Auto SS Clarity (U) Clear (10/03/21 10:33 PM) Normal Clear [facility]A Auto SS Color (U) [place] Invalid Interpretation Code [facility]A Auto SS Epithelial cells.squamous LM.HPF (Urine sed) [#/Area] 0-2 /HPF Normal 0-2/HPF [facility] Auto SS Glucose Test strip (U) [Mass/Vol] Negative (10/03/21 10:33 PM) Normal Negative [facility]A Auto SS Hemoglobin Ql (U) Negative (10/03/21 10:33 PM) Normal Negative [facility]A Auto SS Ketones (U) [Mass/Vol] Negative (10/03/21 10:33 PM) Normal Negative [facility]A Auto SS Ord.plasma/Ord .RBC (Bld) [Mass ratio] 0-3 /HPF Normal 0-3/HPF [facility] Auto SS Nitrite Ql (U) Negative (10/03/21 10:33 PM) Normal Negative [facility] UA Auto SS pH (U) 7.0 *NA* (10/03/21 10:33 PM) Invalid Interpretation Code 5.0 - 9.0 [facility] Auto SS Protein (U) [Mass/Vol] Negative (10/03/21 10:33 PM) Normal Negative [facility] Auto SS Specific gravity (U) [Rel density] 1.010 *NA* (10/03/21 10:33 PM) Invalid Interpretation Code 1.005 - 1.030 [facility] Auto SS UA Spec Desc Catheter (10/03/21 10:33 PM) Normal [facility] UA Auto SS Urobilinogen Qn (U) 0.8134783 {Rolan'U}/dL Normal 0.0 - 1.0 EU/dL [facility] Auto SS WBC Auto Ql (U) Trace *ABN* (10/03/21 10:33 PM) Invalid Interpretation Code Negative [facility] UA Auto SS WBC LM.HPF (Urine sed) [#/Area] 0-5 /HPF Normal 0-5/HPF [facility] UA Auto SS URINALYSIS, REFLEX MICROSCOP ICon 10-02-2021 Bilirubin Ql (U) Negative Negative [facility] Clarity (Unsp spec) Clear Clear [facility] Color (U) Colorless Yellow [facility] Glucose Test strip (U) [Mass/Vol] Negative Negative [facility] Hemoglobin Ql (U) Negative Negative [facility] Ketones Ql (U) Negative Negative [facility] Leukocyte esterase Test strip Ql (U) Negative Negative [facility] Nitrite Ql (U) Negative Negative [facility] pH (U) 7.0 [pH] 5.0 - 8.0 [facility] Protein (U) [Mass/Vol] Negative Negative [facility] Specific gravity (U) [Rel density] 1.005 1.005 - 1.030 [facility] Urobilinogen Ql (U) Negative Negative [facility] URINALYSISOrdered By: Nicolasa fletcher on 09-30-2021 Bilirubin Ql (U) Negative (09/30/21 9:10 PM) Normal Negative [facility]A Auto SS Clarity (U) Clear (09/30/21 9:10 PM) Normal Clear [facility] UA Auto SS Color (U) [place] *ABN* (09/30/21 9:10 PM) Invalid Interpretation Code Yellow [facility] UA Auto SS Epithelial cells.squamous LM.HPF (Urine sed) [#/Area] 0-2 /HPF Normal 0-2/HPF [facility] Auto SS Glucose Test strip (U) [Mass/Vol] Negative (09/30/21 9:10 PM) Normal Negative [facility]A Auto SS Hemoglobin Ql (U) Negative (09/30/21 9:10 PM) Normal Negative [facility]A Auto SS Ketones (U) [Mass/Vol] Negative (09/30/21 9:10 PM) Normal Negative [facility] UA Auto SS Ord.plasma/Ord .RBC (Bld) [Mass ratio] 0-3 /HPF Normal 0-3/HPF [facility]A Auto SS Nitrite Ql (U) Negative (09/30/21 9:10 PM) Normal Negative [facility]A Auto SS pH (U) 6.0 *NA* (09/30/21 9:10 PM) Invalid Interpretation Code 5.0 - 9.0 [facility] UA Auto SS Protein (U) [Mass/Vol] Negative (09/30/21 9:10 PM) Normal Negative [facility] UA Auto SS Specific gravity (U) [Rel density] <=1.005 *NA* (09/30/21 9:10 PM) Invalid Interpretation Code 1.005 - 1.030 [facility] UA Auto SS UA Spec Desc Clean Catch (09/30/21 9:10 PM) Normal [facility] UA Auto SS Urobilinogen Qn (U) 0.8849899 {Rolan'U}/dL Normal 0.0 - 1.0 EU/dL [facility]A Auto SS WBC Auto Ql (U) Negative (09/30/21 9:10 PM) Normal Negative [facility]A Auto SS WBC LM.HPF (Urine sed) [#/Area] 0-5 /HPF Normal 0-5/HPF [facility]A Auto SS URINALYSISOrdered By: Marvin Simpson on 09-17-2021 Bacteria LM Ql (Urine sed) Trace /HPF Normal Trace/HPF [facility]A Auto SS Bilirubin Ql (U) Negative (09/17/21 9:50 AM) Normal Negative [facility]A Auto SS Clarity (U) Clear (09/17/21 9:50 AM) Normal Clear [facility]A Auto SS Color (U) Yellow (09/17/21 9:50 AM) Normal Yellow [facility] UA Auto SS Epithelial cells.squamous LM.HPF (Urine sed) [#/Area] 0-2 /HPF Normal 0-2/HPF [facility]A Auto SS Glucose Test strip (U) [Mass/Vol] Negative (09/17/21 9:50 AM) Normal Negative [facility] UA Auto SS Hemoglobin Ql (U) Trace *ABN* (09/17/21 9:50 AM) Invalid Interpretation Code Negative [facility] UA Auto SS Ketones (U) [Mass/Vol] Negative (09/17/21 9:50 AM) Normal Negative [facility] UA Auto SS Ord.plasma/Ord .RBC (Bld) [Mass ratio] 0-3 /HPF Normal 0-3/HPF [facility] UA Auto SS Nitrite Ql (U) Positive *ABN* (09/17/21 9:50 AM) Invalid Interpretation Code Negative [facility] UA Auto SS pH (U) 7.0 *NA* (09/17/21 9:50 AM) Invalid Interpretation Code 5.0 - 9.0 [facility] UA Auto SS Protein (U) [Mass/Vol] Negative (09/17/21 9:50 AM) Normal Negative [facility] UA Auto SS Specific gravity (U) [Rel density] <=1.005 *NA* (09/17/21 9:50 AM) Invalid Interpretation Code 1.005 - 1.030 [facility] UA Auto SS UA Spec Desc Catheter (09/17/21 9:50 AM) Normal [facility] UA Auto SS Urobilinogen Qn (U) 0.2141866 {Rolan'U}/dL Normal 0.0 - 1.0 EU/dL [facility] UA Auto SS WBC Auto Ql (U) Trace *ABN* (09/17/21 9:50 AM) Invalid Interpretation Code Negative [facility] UA Auto SS WBC LM.HPF (Urine sed) [#/Area] 0-5 /HPF Normal 0-5/HPF [facility] UA Auto SS Automated erythrocytes count in urine sediment (number/area)Ordered By: King Carvajal on 09-08-2021 RBC Auto (Urine sed) [#/Area] 10-19 [HPF] [facility] Automated leukocytes count i n urine sediment (number/area)Ordered By: King Carvajal on 09-08-2021 WBC Auto (Urine sed) [#/Area] 0-1 [HPF] [facility] Basophils Auto (Bld) [#/Vol] Ordered By: King Carvajal on 09-08-2021 Basophils (Bld) [#/Vol] 0.1 10*3/uL 0.0-0.2 [facility] Basophils/100 WBC Auto (Bld) Ordered By: King Carvajal on 09-08-2021 Basophils/100 WBC (Bld) 1.1 % [facility] Bilirubin Test strip Ql (U)O rdered By: King Carvajal on 09-08-2021 Bilirubin Ql (U) Negative Negative [facility] Blood hemoglobin measurement (mass/volume)Ordered By: King Carvajal on 09-08-2021 Hemoglobin (Bld) [Mass/Vol] 12.0 g/dL 11.8-15.4 [facility] Blood leukocytes automated c ount (number/volume)Ordered By: King Carvajal on 09-08-2021 WBC (Bld) [#/Vol] 9.3 10*3/uL 4.5-11.0 [facility] Color Auto (U)Ordered By: Denton Carvajal on 09-08-2021 Color (U) Dark yellow Yellow [facility] Creatinine and Glomerular fi ltration rate.predicted panel (S/P/Bld)Ordered By: King Carvajal on 09-08-2021 Creatinine [Mass/Vol] 1.20 mg/dL 0.44-1.03 [facility] Eosinophils Auto (Bld) [#/Vo l]Ordered By: King Carvajal on 09-08-2021 Eosinophils (Bld) [#/Vol] 0.1 10*3/uL 0.0-0.45 [facility] Eosinophils/100 WBC Auto (Bl d)Ordered By: King Carvajal on 09-08-2021 Eosinophils/100 WBC (Bld) 0.9 % [facility] Erythrocyte distribution wid th Auto (RBC) [Ratio]Ordered By: King Carvajal on 09-08-2021 Erythrocyte distribution width (RBC) [Ratio] 13.1 % 11.9-15.3 [facility] Estimated glomerular filtrat ion rate (GFR) non- AmericanOrdered By: King Carvajal on 09-08-2021 GFR/1.73 sq M.predicted among non-blacks MDRD (S/P/Bld) [Vol rate/Area] 44 mL/Min [facility] Hematocrit Auto (Bld) [Volum e fraction]Ordered By: King Carvajal on 09-08-2021 Hematocrit (Bld) [Volume fraction] 36.7 % 34.0-46.4 [facility] Ketones Auto test strip (U) [Mass/Vol]Ordered By: King Carvajal on 09-08-2021 Ketones (U) [Mass/Vol] Negative Negative [facility] - Hematology and Cell countsOrdered By: King Carvajal on 09-08-2021 Nucleated RBC/100 WBC (Bld) [Ratio] 0.1 % 0-0.5 [facility] - UrinalysisOrder ed By: King Carvajal on 09-08-2021 Hyaline casts LM Ql (Urine sed) 0-8 [LPF] [facility] Lymphocytes Auto (Bld) [#/Vo l]Ordered By: King Carvajal on 09-08-2021 Lymphocytes (Bld) [#/Vol] 1.4 10*3/uL 1.00-4.8 [facility] Lymphocytes/100 WBC Auto (Bl d)Ordered By: King Carvajal on 09-08-2021 Lymphocytes/100 WBC (Bld) 14.7 % [facility] MCH Auto (RBC) [Entitic mass ]Ordered By: King Carvajal on 09-08-2021 MCH (RBC) [Entitic mass] 30.3 pg 24.7-34.3 [facility] MCHC Auto (RBC) [Mass/Vol]Or dered By: King Carvajal on 09-08-2021 MCHC (RBC) [Mass/Vol] 32.6 g/dL 32.0-35.0 [facility] MCV Auto (RBC) [Entitic vol] Ordered By: King Carvajal on 09-08-2021 MCV (RBC) [Entitic vol] 93.0 fL 80-100 [facility] Monocytes Auto (Bld) [#/Vol] Ordered By: King Carvajal on 09-08-2021 Monocytes (Bld) [#/Vol] 0.9 10*3/uL 0.0-0.8 [facility] Monocytes/100 WBC Auto (Bld) Ordered By: King Carvajal on 09-08-2021 Monocytes/100 WBC (Bld) 9.5 % [facility] Neutrophils Auto (Bld) [#/Vo l]Ordered By: King Carvajal on 09-08-2021 Neutrophils (Bld) [#/Vol] 6.8 10*3/uL 1.8-7.7 [facility] Neutrophils/100 WBC Auto (Bl d)Ordered By: King Carvajal on 09-08-2021 Neutrophils/100 WBC (Bld) 73.8 % [facility] Nitrite Test strip Ql (U)Ord ered By: King Carvajal on 09-08-2021 Nitrite Ql (U) Positive Negative [facility] No Panel InformationOrdered By: King Carvajal on 09-08-2021 Estimated GFR () 53 mL/Min [facility] Comment on above: GFR estimated refere nce range: According to KDOQI guidelines, <60 ml/min/1.73m2 is sufficient to diagnose a patient with chronic kidney disease. Pharmacy Creatinine Clearance (Chem 36.56 [facility] Platelet mean volume Auto (B ld) [Entitic vol]Ordered By: King Carvajal on 09-08-2021 Platelet mean volume (Bld) [Entitic vol] 7.0 fL 6.3-10.7 [facility] Platelets Auto (Bld) [#/Vol] Ordered By: King Carvajal on 09-08-2021 Platelets (Bld) [#/Vol] 280 10*3/uL 150-450 [facility] Protein Auto test strip (U) [Mass/Vol]Ordered By: King Carvajal on 09-08-2021 Protein (U) [Mass/Vol] Negative [facility] RBC Auto (Bld) [#/Vol]Ordere d By: King Carvajal on 09-08-2021 RBC (Bld) [#/Vol] 3.95 10*6/uL 3.60-5.00 [facility] Serum or plasma calcium dimitris urement (mass/volume)Ordered By: King Carvajal on 09-08-2021 Calcium [Mass/Vol] 9.2 mg/dL 8.2-10.2 [facility] Serum or plasma chloride jeison surement (moles/volume)Ordered By: King Carvajal on 09-08-2021 Chloride [Moles/Vol] 91 mmol/L 95-114 [facility] Serum or plasma glucose dimitris urement (mass/volume)Ordered By: King Carvajal on 09-08-2021 Glucose [Mass/Vol] 194 mg/dL 70-100 [facility] Comment on above: ADA recommended refe rence range Random Glucose Reference Range is dependent on time and content of last meal. Glucose of more than 200 mg/dL in a nonstressed, ambulatory subject supports the diagnosis of Diabetes Mellitus. Serum or plasma potassium me asurement (moles/volume)Ordered By: King Carvajal on 09-08-2021 Potassium [Moles/Vol] 3.6 mmol/L 3.5-5.1 [facility] Serum or plasma sodium measu rement (moles/volume)Ordered By: King Carvajal on 09-08-2021 Sodium [Moles/Vol] 126 mmol/L 136-146 [facility] Serum or plasma total carbon dioxide measurement (moles/volume)Ordered By: King Carvajal on 09-08-2021 CO2 [Moles/Vol] 24.2 mmol/L 22.0-30.0 [facility] Serum or plasma urea nitroge n measurement (mass/volume)Ordered By: King Carvajal on 09-08-2021 Urea nitrogen [Mass/Vol] 5 mg/dL 9-23 [facility] Specific gravity Auto test s trip (U) [Rel density]Ordered By: King Carvajal on 09-08-2021 Specific gravity (U) [Rel density] 1.010 1.001-1.03 0 [facility] Squamous epithelial cells de tection in urine sediment by light microscopyOrdered By: King Carvajal on 09-08-2021 Epithelial cells.squamous LM Ql (Urine sed) 0-1 [HPF] [facility] URINALYSISOrdered By: Leilani Galloway on 09-08-2021 Bacteria LM Ql (Urine sed) Trace /HPF Normal Trace/HPF [facility] UA Auto SS Bilirubin Ql (U) Negative (09/08/21 5:21 AM) Normal Negative [facility] UA Auto SS Clarity (U) Clear (09/08/21 5:21 AM) Normal Clear [facility] UA Auto SS Color (U) Yellow (09/08/21 5:21 AM) Normal Yellow [facility] UA Auto SS Crystals LM Ql (Urine sed) Present (09/08/21 5:21 AM) Normal [facility] UA Auto SS Epithelial cells.squamous LM.HPF (Urine sed) [#/Area] 0-2 /HPF Normal 0-2/HPF [facility] UA Auto SS Glucose Test strip (U) [Mass/Vol] Negative (09/08/21 5:21 AM) Normal Negative [facility] UA Auto SS Hemoglobin Ql (U) Negative (09/08/21 5:21 AM) Normal Negative [facility] UA Auto SS Ketones (U) [Mass/Vol] Negative (09/08/21 5:21 AM) Normal Negative [facility] UA Auto SS Ord.plasma/Ord .RBC (Bld) [Mass ratio] 0-3 /HPF Normal 0-3/HPF [facility] UA Auto SS Nitrite Ql (U) Negative (09/08/21 5:21 AM) Normal Negative [facility] UA Auto SS pH (U) 7.0 *NA* (09/08/21 5:21 AM) Invalid Interpretation Code 5.0 - 9.0 [facility] UA Auto SS Protein (U) [Mass/Vol] Negative (09/08/21 5:21 AM) Normal Negative [facility] UA Auto SS Specific gravity (U) [Rel density] 1.010 *NA* (09/08/21 5:21 AM) Invalid Interpretation Code 1.005 - 1.030 [facility] UA Auto SS UA Spec Desc Catheter (09/08/21 5:21 AM) Normal [facility] UA Auto SS Urobilinogen Qn (U) 0.7633614 {Rolan'U}/dL Normal 0.0 - 1.0 EU/dL [facility] UA Auto SS WBC Auto Ql (U) Negative (09/08/21 5:21 AM) Normal Negative [facility] UA Auto SS WBC LM.HPF (Urine sed) [#/Area] 0-5 /HPF Normal 0-5/HPF [facility] UA Auto SS Urine bacteria detection by automated methodOrdered By: King Carvajal on 09-08-2021 Bacteria Auto Ql (U) None seen None Seen [facility] Urine clarity by refractomet ry automatedOrdered By: King Carvajal on 09-08-2021 Clarity Refractometry automated (U) Clear Clear [facility] Urine culture routineOrdered By: King Carvajal on 09-08-2021 Bacteria identified Cx Nom (U) No Growth 2 Days [facility] Urine glucose measurement by automated test strip (mass/volume)Ordered By: King Carvajal on 09-08-2021 Glucose Auto test strip (U) [Mass/Vol] Normal mg/dL Normal [facility] Urine hemoglobin detection b y automated test stripOrdered By: King Carvajal on 09-08-2021 Hemoglobin Auto test strip Ql (U) 1+ Negative [facility] Urine leukocyte esterase det ection by automated test stripOrdered By: King Carvajal on 09-08-2021 Leukocyte esterase Auto test strip Ql (U) 1+ Negative [facility] Urobilinogen Auto test strip (U) [Mass/Vol]Ordered By: King Carvajal on 09-08-2021 Urobilinogen (U) [Mass/Vol] Normal mg/dL Normal [facility] pH Auto test strip (U)Ordere d By: King Carvajal on 09-08-2021 pH (U) 6.0 [pH] 5.0-9.0 [facility] CHEMISTRYOrdered By: SYSTEM SYSTEM on 09-07-2021 Anion gap [Moles/Vol] 14 mmol/L Normal 6 - 16 mEq/L [facility] Remisol Calcium [Mass/Vol] 9.3 mg/dL Normal 8.9 - 11. 1 mg/dL [facility] Remisol Chloride [Moles/Vol] 96 mmol/L Low 101 - 1 11 mmol/L [facility] Remisol CO2 [Moles/Vol] 26 mmol/L Normal 21 - 31 mmol/L [facility] Creatinine [Mass/Vol] 1.1 mg/dL Normal 0.5 - 1.3 mg/dL [facility] Remisol GFR/1.73 sq M.predicted among blacks MDRD (S/P/Bld) [Vol rate/Area] 59 mL/min/1.73 m2 Normal >=59mL/min /1.73 m2 [facility] Chem S GFR/1.73 sq M.predicted among non-blacks MDRD (S/P/Bld) [Vol rate/Area] 49 mL/min/1.73 m2 Low >=59mL/min /1.73 m2 [facility] Chem S Glucose [Mass/Vol] 114 mg/dL Normal 55 - 199 mg/dL [facility] Potassium [Moles/Vol] 3.9 mmol/L Normal 3.5 - 5.3 mmol/L [facility] Sodium [Moles/Vol] 132 mmol/L Low 135 - 145 mmol/L [facility] Urea nitrogen [Mass/Vol] 7 mg/dL Normal 5 - 21 mg/dL [facility] Urea nitrogen/Creatinine [Mass ratio] 6 mg/mg Low 10 - 20 [facility] Albumin [Mass/Vol] 3.8 g/dL Normal 3.3 - 5.0 gm/dL [facility] Albumin/Globulin [Mass ratio] 1.6 {ratio} Normal 1.1 - 2.2 [facility] ALP [Catalytic activity/Vol] 63 [iU]/d Normal 21 - 98 Int._Unit/ L [facility] ALT No additional P-5'-P [Catalytic activity/Vol] 10 [iU]/d Normal 6 - 46 Int._Unit/ L [facility] Anion gap [Moles/Vol] 13 mmol/L Normal 6 - 16 mEq/L [facility] AST [Catalytic activity/Vol] 23 [iU]/d Normal 5 - 43 Int._Unit/ L [facility] Bilirubin [Mass/Vol] 0.7 mg/dL Normal 0.0 - 1 .1 mg/dL [facility] Calcium [Mass/Vol] 9.3 mg/dL Normal 8.9 - 11. 1 mg/dL [facility] Chloride [Moles/Vol] 91 mmol/L Low 101 - 1 11 mmol/L [facility] CO2 [Moles/Vol] 29 mmol/L Normal 21 - 31 mmol/L [facility] Creatinine [Mass/Vol] 1.1 mg/dL Normal 0.5 - 1.3 mg/dL [facility] GFR/1.73 sq M.predicted among blacks MDRD (S/P/Bld) [Vol rate/Area] 59 mL/min/1.73 m2 Normal >=59mL/min /1.73 m2 [facility] Chem S GFR/1.73 sq M.predicted among non-blacks MDRD (S/P/Bld) [Vol rate/Area] 49 mL/min/1.73 m2 Low >=59mL/min /1.73 m2 [facility] Chem S Globulin (S) [Mass/Vol] 2.3 g/dL Normal 1.4 - 4.0 gm/dL [facility] Glucose [Mass/Vol] 109 mg/dL Normal 55 - 199 mg/dL [facility] Potassium [Moles/Vol] 4.2 mmol/L Normal 3.5 - 5.3 mmol/L [facility] Protein [Mass/Vol] 6.1 g/dL Normal 6.0 - 7.8 gm/dL [facility] Sodium [Moles/Vol] 129 mmol/L Low 135 - 145 mmol/L [facility] Urea nitrogen [Mass/Vol] 6 mg/dL Normal 5 - 21 mg/dL [facility] Urea nitrogen/Creatinine [Mass ratio] 6 mg/mg Low 10 - 20 [facility] CHEMISTRYOrdered By: Radha Galloway on 09-07-2021 Troponin I.cardiac [Mass/Vol] 2.90 pg/mL Low 10.10 - 27.10 pg/mL [facility] HEMATOLOGYOrdered By: SYSTEM SYSTEM on 09-07-2021 Basophils/100 WBC (Bld) 1.2 % Normal 0.0 - 2.0 % [facility] HemeAutoSS Basophils/Leukocytes Auto (Bld) [Pure # fraction] 0.1 E9/L Normal 0.0 - 0.2 E9/L [facility]eAuto[facility] Eosinophils/100 WBC (Bld) 1.7 % Normal 0.0 - 8.0 % [facility]eAutoSS Eosinophils/Leukocytes Auto (Bld) [Pure # fraction] 0.2 E9/L Normal 0.0 - 0.5 E9/L [facility]eAuto[facility] Lymphocytes/100 WBC (Bld) 19.1 % Normal 14.0 - 50.0 % [facility]eAutoSS Lymphocytes/Leukocytes Auto (Bld) [Pure # fraction] 2.0 E9/L Normal 1.0 - 4.0 E9/L [facility]eAutoSS Monocytes/100 WBC (Bld) 9.3 % Normal 4.0 - 14.0 % [facility] HemeAutoSS Monocytes/Leukocytes Auto (Bld) [Pure # fraction] 1.0 E9/L Normal 0.2 - 1.0 E9/L [facility] Neutrophils/100 WBC (Bld) 68.7 % Normal 36.0 - 75.0 % [facility]eAutoSS Neutrophils/Leukocytes Auto (Bld) [Pure # fraction] 7.0 E9/L Normal 2.0 - 7.5 E9/L [facility]eAuto[facility] Basophils/100 WBC (Bld) 1.6 % Normal 0.0 - 2.0 % [facility]eAutoSS Basophils/Leukocytes Auto (Bld) [Pure # fraction] 0.1 E9/L Normal 0.0 - 0.2 E9/L [facility] Eosinophils/100 WBC (Bld) 2.4 % Normal 0.0 - 8.0 % [facility]eAutoSS Eosinophils/Leukocytes Auto (Bld) [Pure # fraction] 0.2 E9/L Normal 0.0 - 0.5 E9/L [facility] Lymphocytes/100 WBC (Bld) 17.3 % Normal 14.0 - 50.0 % [facility]eAutoSS Lymphocytes/Leukocytes Auto (Bld) [Pure # fraction] 1.4 E9/L Normal 1.0 - 4.0 E9/L [facility]eAuto[facility] Monocytes/100 WBC (Bld) 8.6 % Normal 4.0 - 14.0 % [facility]eAutoSS Monocytes/Leukocytes Auto (Bld) [Pure # fraction] 0.7 E9/L Normal 0.2 - 1.0 E9/L [facility] Neutrophils/100 WBC (Bld) 70.1 % Normal 36.0 - 75.0 % [facility]eAutoSS Neutrophils/Leukocytes Auto (Bld) [Pure # fraction] 5.7 E9/L Normal 2.0 - 7.5 E9/L [facility] HEMATOLOGYOrdered By: Leilani Galloway on 09-07-2021 Erythrocyte distribution width (RBC) [Ratio] 12.6 % Normal 10.9 - 14.2 % [facility]eAuto[facility] Hematocrit (Bld) [Volume fraction] 34.3 % Normal 34.0 - 46.0 % [facility]eAuto[facility] Hemoglobin (Bld) [Mass/Vol] 11.4 g/dL Low 12.0 - 16.0 gm/dL [facility] MCH (RBC) [Entitic mass] 30.1 pg Normal 27.0 - 34.0 pg [facility] MCHC (RBC) [Mass/Vol] 33.1 g/dL Normal 31.4 - 36.0 gm/dL [facility] MCV (RBC) [Entitic vol] 90.9 fL Normal 80.0 - 100.0 fL [facility] Platelet mean volume (Bld) [Entitic vol] 7.2 fL Normal 6.4 - 10.8 fL [facility] Platelets (Bld) [#/Vol] 273.0 E9/L Normal 150.0 - 500.0 E9/L [facility] RBC (Bld) [#/Vol] 3.8 E12/L Low 4.3 - 5.9 E12/L [facility] WBC corrected for nucl RBC Auto (Bld) [#/Vol] 10.3 E9/L Normal 4.0 - 11.0 E9/L [facility] HEMATOLOGYOrdered By: Lilibeth Farrell on 09-07-2021 Erythrocyte distribution width (RBC) [Ratio] 12.8 % Normal 10.9 - 14.2 % [facility]eAuto[facility] Hematocrit (Bld) [Volume fraction] 33.0 % Low 34.0 - 46.0 % [facility]eAutoSS Hemoglobin (Bld) [Mass/Vol] 11.1 g/dL Low 12.0 - 16.0 gm/dL [facility] MCH (RBC) [Entitic mass] 30.6 pg Normal 27.0 - 34.0 pg [facility]Auto[facility] MCHC (RBC) [Mass/Vol] 33.5 g/dL Normal 31.4 - 36.0 gm/dL [facility] MCV (RBC) [Entitic vol] 91.4 fL Normal 80.0 - 100.0 fL [facility] HemeAutoSS Platelet mean volume (Bld) [Entitic vol] 6.6 fL Normal 6.4 - 10.8 fL [facility] HemeAutoSS Platelets (Bld) [#/Vol] 262.0 E9/L Normal 150.0 - 500.0 E9/L [facility]eAutoSS RBC (Bld) [#/Vol] 3.6 E12/L Low 4.3 - 5.9 E12/L [facility] HemeAutoSS WBC corrected for nucl RBC Auto (Bld) [#/Vol] 8.2 E9/L Normal 4.0 - 11.0 E9/L [facility] HemeAutoSS LaboratoryOrdered By: Jose Smith on 09-07-2021 Ord.plasma/Ord .RBC (Bld) [Mass ratio] 0-3 /HPF Normal 0-3/HPF [facility] UA Auto SS Laboratory - Chemistry and C hemistry - challengeOrdered By: Jose Smith on 09-07-2021 Urobilinogen Qn (U) 1.9674019 {Rolan'U}/dL Normal 0.0 - 1.0 EU/dL [facility] UA Auto SS Laboratory - UrinalysisOrder ed By: Jose Smith on 09-07-2021 WBC LM.HPF (Urine sed) [#/Area] 0-5 /HPF Normal 0-5/HPF [facility] UA Auto SS MICRO OTHER TESTSOrdered By: Klaudia Painter on 09-07-2021 Fecal WBC Lactoferrin Negative (09/07/21 8:10 AM) Normal Negative [facility] Man Sero URINALYSISOrdered By: Jose Smith on 09-07-2021 Bacteria LM Ql (Urine sed) Trace /HPF Normal Trace/HPF [facility] UA Auto SS Bilirubin Ql (U) Negative (09/07/21 6:51 AM) Normal Negative [facility] UA Auto SS Clarity (U) Clear (09/07/21 6:51 AM) Normal Clear [facility] UA Auto SS Color (U) Yellow (09/07/21 6:51 AM) Normal Yellow [facility] UA Auto SS Epithelial cells.squamous LM.HPF (Urine sed) [#/Area] 0-2 /HPF Normal 0-2/HPF [facility] UA Auto SS Glucose Test strip (U) [Mass/Vol] Trace *ABN* (09/07/21 6:51 AM) Invalid Interpretation Code Negative [facility] UA Auto SS Hemoglobin Ql (U) Negative (09/07/21 6:51 AM) Normal Negative [facility] UA Auto SS Ketones (U) [Mass/Vol] Negative (09/07/21 6:51 AM) Normal Negative [facility] UA Auto SS Nitrite Ql (U) Positive *ABN* (09/07/21 6:51 AM) Invalid Interpretation Code Negative [facility] UA Auto SS pH (U) 7.0 *NA* (09/07/21 6:51 AM) Invalid Interpretation Code 5.0 - 9.0 [facility] UA Auto SS Protein (U) [Mass/Vol] Negative (09/07/21 6:51 AM) Normal Negative [facility] UA Auto SS Specific gravity (U) [Rel density] <=1.005 *NA* (09/07/21 6:51 AM) Invalid Interpretation Code 1.005 - 1.030 [facility] UA Auto SS UA Spec Desc Catheter 1 (09/07/21 6:51 AM) Normal [facility] UA Auto SS Comment on above: Result Comment: cath . insert specimen WBC Auto Ql (U) Negative (09/07/21 6:51 AM) Normal Negative [facility] UA Auto SS Bacteria LM Ql (Urine sed) 1+ /HPF Invalid Interpretation Code Trace/HPF [facility] UA Auto SS Bilirubin Ql (U) Negative (09/07/21 6:00 AM) Normal Negative [facility] UA Auto SS Clarity (U) Clear (09/07/21 6:00 AM) Normal Clear [facility] UA Auto SS Color (U) Yellow (09/07/21 6:00 AM) Normal Yellow [facility] UA Auto SS Epithelial cells.squamous LM.HPF (Urine sed) [#/Area] 3-4 /HPF Normal 0-2/HPF [facility] UA Auto SS Glucose Test strip (U) [Mass/Vol] Negative (09/07/21 6:00 AM) Normal Negative [facility] UA Auto SS Hemoglobin Ql (U) Trace *ABN* (09/07/21 6:00 AM) Invalid Interpretation Code Negative [facility] UA Auto SS Ketones (U) [Mass/Vol] Negative (09/07/21 6:00 AM) Normal Negative [facility] UA Auto SS Nitrite Ql (U) Positive *ABN* (09/07/21 6:00 AM) Invalid Interpretation Code Negative [facility] UA Auto SS pH (U) 6.0 *NA* (09/07/21 6:00 AM) Invalid Interpretation Code 5.0 - 9.0 [facility] UA Auto SS Protein (U) [Mass/Vol] Negative (09/07/21 6:00 AM) Normal Negative [facility] UA Auto SS Specific gravity (U) [Rel density] <=1.005 *NA* (09/07/21 6:00 AM) Invalid Interpretation Code 1.005 - 1.030 [facility] UA Auto SS UA Spec Desc Clean Catch (09/07/21 6:00 AM) Normal [facility] UA Auto SS WBC Auto Ql (U) 1+ *ABN* (09/07/21 6:00 AM) Invalid Interpretation Code Negative [facility] UA Auto SS Activated partial thrombopla stin time (aPTT) in platelet poor plasma by coagulation aOrdered By: Jaxon Buchanan on 08-07-2021 aPTT Coag (PPP) [Time] 28.9 s 25.1-36.5 [facility] Automated epithelial cells c ount in urine sediment (number/area)Ordered By: Jaxon Buchanan on 08-07-2021 Epithelial cells Auto (Urine sed) [#/Area] 0-1 [HPF] [facility] Automated erythrocytes count in urine sediment (number/area)Ordered By: Jaxon Buchanan on 08-07-2021 RBC Auto (Urine sed) [#/Area] 0-1 [HPF] [facility] Automated leukocytes count i n urine sediment (number/area)Ordered By: Jaxon Buchanan on 08-07-2021 WBC Auto (Urine sed) [#/Area] 0-1 [HPF] [facility] Basophils Auto (Bld) [#/Vol] Ordered By: Jaxon Buchanan on 08-07-2021 Basophils (Bld) [#/Vol] 0.2 10*3/uL 0.0-0.2 [facility] Basophils/100 WBC Auto (Bld) Ordered By: Jaxon Buchanan on 08-07-2021 Basophils/100 WBC (Bld) 2.7 % [facility] Bilirubin Test strip Ql (U)O rdered By: Jaxon Buchanan on 08-07-2021 Bilirubin Ql (U) See comment Negative [facility] Comment on above: Unable to obtain acc urate result due to color interference. Blood hemoglobin measurement (mass/volume)Ordered By: Jaxon Buchanan on 08-07-2021 Hemoglobin (Bld) [Mass/Vol] 10.3 g/dL 11.8-15.4 [facility] Blood leukocytes automated c ount (number/volume)Ordered By: Jaxon Buchanan on 08-07-2021 WBC (Bld) [#/Vol] 7.4 10*3/uL 4.5-11.0 [facility] Body fluid albumin measureme nt (mass/volume)Ordered By: Jaxon Buchanan on 08-07-2021 Albumin (Body fld) [Mass/Vol] 3.7 g/dL 3.2-5.5 [facility] Color Auto (U)Ordered By: Rolando Buchanan on 08-07-2021 Color (U) [place] Yellow [facility] Creatinine and Glomerular fi ltration rate.predicted panel (S/P/Bld)Ordered By: Jaxon Buchanan on 08-07-2021 Creatinine [Mass/Vol] 1.46 mg/dL 0.44-1.03 [facility] Eosinophils Auto (Bld) [#/Vo l]Ordered By: Jaxon Buchanan on 08-07-2021 Eosinophils (Bld) [#/Vol] 0.3 10*3/uL 0.0-0.45 [facility] Eosinophils/100 WBC Auto (Bl d)Ordered By: Jaxon Buchanan on 08-07-2021 Eosinophils/100 WBC (Bld) 3.4 % [facility] Erythrocyte distribution wid th Auto (RBC) [Ratio]Ordered By: Jaxon Buchanan on 08-07-2021 Erythrocyte distribution width (RBC) [Ratio] 13.8 % 11.9-15.3 [facility] Estimated glomerular filtrat ion rate (GFR) non- AmericanOrdered By: Jaxon Buchanan on 08-07-2021 GFR/1.73 sq M.predicted among non-blacks MDRD (S/P/Bld) [Vol rate/Area] 35 mL/Min [facility] Globulin Calc (S) [Mass/Vol] Ordered By: Jaxon Buchanan on 08-07-2021 Globulin (S) [Mass/Vol] 2.4 g/dL [facility] Hematocrit Auto (Bld) [Volum e fraction]Ordered By: Jaxon Buchanan on 08-07-2021 Hematocrit (Bld) [Volume fraction] 31.9 % 34.0-46.4 [facility] Ketones Auto test strip (U) [Mass/Vol]Ordered By: Jaxon Buchanan on 08-07-2021 Ketones (U) [Mass/Vol] See comment Negative [facility] Comment on above: Unable to obtain acc urate result due to color interference. Laboratory - Chemistry and C hemistry - challengeOrdered By: Jaxon Buchanan on 08-07-2021 Lipase [Catalytic activity/Vol] 49.0 U/L 22-51 [facility] Laboratory - CoagulationOrde red By: Jaxon Buchanan on 08-07-2021 PT Coag (PPP) [Time] 10.9 s 9.0-12.9 [facility] Laboratory - Hematology and Cell countsOrdered By: Jaxon Buchanan on 08-07-2021 Nucleated RBC/100 WBC (Bld) [Ratio] 0.1 % 0-0.5 [facility] Lymphocytes Auto (Bld) [#/Vo l]Ordered By: Jaxon Buchanan on 08-07-2021 Lymphocytes (Bld) [#/Vol] 1.9 10*3/uL 1.00-4.8 [facility] Lymphocytes/100 WBC Auto (Bl d)Ordered By: Jaxon Buchanan on 08-07-2021 Lymphocytes/100 WBC (Bld) 26.0 % [facility] MCH Auto (RBC) [Entitic mass ]Ordered By: Jaxon Buchanan on 08-07-2021 MCH (RBC) [Entitic mass] 29.6 pg 24.7-34.3 [facility] MCHC Auto (RBC) [Mass/Vol]Or dered By: Jaxon Buchanan on 08-07-2021 MCHC (RBC) [Mass/Vol] 32.2 g/dL 32.0-35.0 [facility] MCV Auto (RBC) [Entitic vol] Ordered By: Jaxon Buchanan on 08-07-2021 MCV (RBC) [Entitic vol] 91.9 fL 80-100 [facility] Monocytes Auto (Bld) [#/Vol] Ordered By: Jaxon Buchanan on 08-07-2021 Monocytes (Bld) [#/Vol] 0.8 10*3/uL 0.0-0.8 [facility] Monocytes/100 WBC Auto (Bld) Ordered By: Jaxon Buchanan on 08-07-2021 Monocytes/100 WBC (Bld) 10.8 % [facility] Neutrophils Auto (Bld) [#/Vo l]Ordered By: Jaxon Buchanan on 08-07-2021 Neutrophils (Bld) [#/Vol] 4.2 10*3/uL 1.8-7.7 [facility] Neutrophils/100 WBC Auto (Bl d)Ordered By: Jaxon Buchanan on 08-07-2021 Neutrophils/100 WBC (Bld) 57.1 % [facility] Nitrite Test strip Ql (U)Ord ered By: Jaxon Buchanan on 08-07-2021 Nitrite Ql (U) See comment Negative [facility] Comment on above: Unable to obtain acc urate result due to color interference. No Panel InformationOrdered By: Jaxon Buchanan on 08-07-2021 Estimated GFR () 42 mL/Min [facility] Comment on above: GFR estimated refere nce range: According to KDOQI guidelines, <60 ml/min/1.73m2 is sufficient to diagnose a patient with chronic kidney disease. Pharmacy Creatinine Clearance (Chem 27.14 [facility] Platelet mean volume Auto (B ld) [Entitic vol]Ordered By: Jaxon Buchanan on 08-07-2021 Platelet mean volume (Bld) [Entitic vol] 7.1 fL 6.3-10.7 [facility] Platelet poor plasma interna tional normalized ratio (INR) by coagulation assay (relatOrdered By: Jaxon Buchanan on 08-07-2021 INR Coag (PPP) [Relative time] 1.0 {INR} [facility] Comment on above: INR Therapeutic Rang e A) Pre- and Peroperative OAT started two weeks before surgery. NOT HIP SURGERY: 1.5 - 2.5 HIP SURGERY: 2 - 3 B) Primary and secondary prevention of venous THROMBOSIS: 2 - 3 C) Active venous thrombosis, pulmonary embolism and prevention of recurrent venous thrombosis: 2 - 3 D) Prevention of arterial thromboembolism including patients with mechanical heart valves: 3 - 4.5 Platelets Auto (Bld) [#/Vol] Ordered By: Jaxon Buchanan on 08-07-2021 Platelets (Bld) [#/Vol] 297 10*3/uL 150-450 [facility] Protein Auto test strip (U) [Mass/Vol]Ordered By: Jaxon Buchanan on 08-07-2021 Protein (U) [Mass/Vol] See comment Negative [facility] Comment on above: Unable to obtain acc urate result due to color interference. Protein [Mass/volume] in Ser um or PlasmaOrdered By: Jaxon Buchanan on 08-07-2021 Protein [Mass/Vol] 6.1 g/dL 6.1-7.9 [facility] RBC Auto (Bld) [#/Vol]Ordere d By: Jaxon Buchanan on 08-07-2021 RBC (Bld) [#/Vol] 3.47 10*6/uL 3.60-5.00 [facility] Serum or plasma alanine hancock otransferase measurement without P-5'-P (enzymatic activiOrdered By: Jaxon Buchanan on 08-07-2021 ALT No additional P-5'-P [Catalytic activity/Vol] 14 U/L 10-60 [facility] Serum or plasma albumin/glob ulin mass ratioOrdered By: Jaxon Buchanan on 08-07-2021 Albumin/Globulin [Mass ratio] 1.5 {ratio} [facility] Serum or plasma alkaline miguel ángel sphatase measurement (enzymatic activity/volume)Ordered By: Jaxon Buchanan on 08-07-2021 ALP [Catalytic activity/Vol] 57 U/L 32-92 [facility] Serum or plasma amylase dimitris urement (enzymatic activity/volume)Ordered By: Jaxon Buchanan on 08-07-2021 Amylase [Catalytic activity/Vol] 53 U/L 28-100 [facility] Serum or plasma aspartate am inotransferase measurement (enzymatic activity/volume)Ordered By: Jaxon Buchanan on 08-07-2021 AST [Catalytic activity/Vol] 22 U/L 10-42 [facility] Serum or plasma calcium dimitris urement (mass/volume)Ordered By: Jaxon Buchanan on 08-07-2021 Calcium [Mass/Vol] 9.2 mg/dL 8.2-10.2 [facility] Serum or plasma chloride jeison surement (moles/volume)Ordered By: Jaxon Buchanan on 08-07-2021 Chloride [Moles/Vol] 93 mmol/L 95-114 [facility] Serum or plasma glucose dimitris urement (mass/volume)Ordered By: Jaxon Buchanan on 08-07-2021 Glucose [Mass/Vol] 114 mg/dL 70-100 [facility] Comment on above: ADA recommended refe rence range Random Glucose Reference Range is dependent on time and content of last meal. Glucose of more than 200 mg/dL in a nonstressed, ambulatory subject supports the diagnosis of Diabetes Mellitus. Serum or plasma potassium me asurement (moles/volume)Ordered By: Jaxon Buchanan on 08-07-2021 Potassium [Moles/Vol] 4.3 mmol/L 3.5-5.1 [facility] Serum or plasma sodium measu rement (moles/volume)Ordered By: Jaxon Buchanan on 08-07-2021 Sodium [Moles/Vol] 130 mmol/L 136-146 [facility] Serum or plasma total biliru bin measurement (mass/volume)Ordered By: Jaxon Buchanan on 08-07-2021 Bilirubin [Mass/Vol] 1.1 mg/dL 0.3-1.2 [facility] Serum or plasma total carbon dioxide measurement (moles/volume)Ordered By: Jaxon Buchanan on 08-07-2021 CO2 [Moles/Vol] 29.1 mmol/L 22.0-30.0 [facility] Serum or plasma urea nitroge n measurement (mass/volume)Ordered By: Jaxon Buchanan on 08-07-2021 Urea nitrogen [Mass/Vol] 7 mg/dL 9-23 [facility] Specific gravity Auto test s trip (U) [Rel density]Ordered By: Jaxon Buchanan on 08-07-2021 Specific gravity (U) [Rel density] 1.005 1.001-1.03 0 [facility] Troponin I.cardiac [Mass/vol ume] in Serum or Plasma by High sensitivity methodOrdered By: Jaxon Buchanan on 08-07-2021 Troponin I.cardiac High sensitivity method [Mass/Vol] 3 pg/mL 0-15 [facility] Urine bacteria detection by automated methodOrdered By: Jaxon Buchanan on 08-07-2021 Bacteria Auto Ql (U) None seen None Seen [facility] Urine clarity by refractomet ry automatedOrdered By: Jaxon Buchanan on 08-07-2021 Clarity Refractometry automated (U) Clear Clear [facility] Urine culture routineOrdered By: Jaxon Buchanan on 08-07-2021 Bacteria identified Cx Nom (U) 2 Days [facility] Urine glucose measurement by automated test strip (mass/volume)Ordered By: Jaxon Buchanan on 08-07-2021 Glucose Auto test strip (U) [Mass/Vol] See comment Normal [facility] Comment on above: Unable to obtain acc urate result due to color interference. Urine hemoglobin detection b y automated test stripOrdered By: Jaxon Buchanan on 08-07-2021 Hemoglobin Auto test strip Ql (U) See comment Negative [facility] Comment on above: Unable to obtain acc urate result due to color interference. Urine lactic acid measuremen tOrdered By: Jaxon Buchanan on 08-07-2021 Lactate (U) [Moles/Vol] 1.1 mmol/L [facility] Urine leukocyte esterase det ection by automated test stripOrdered By: Jaxon Buchanan on 08-07-2021 Leukocyte esterase Auto test strip Ql (U) See comment Negative [facility] Comment on above: Unable to obtain acc urate result due to color interference. Urobilinogen Auto test strip (U) [Mass/Vol]Ordered By: Jaxon Buchanan on 08-07-2021 Urobilinogen (U) [Mass/Vol] See comment Normal [facility] Comment on above: Unable to obtain acc urate result due to color interference. pH Auto test strip (U)Ordere d By: Jaxon Buchanan on 08-07-2021 pH (U) See comment 5.0-9.0 [facility] Comment on above: Unable to obtain acc urate result due to color interference. Automated erythrocytes count in urine sediment (number/area)Ordered By: Gloria Moss on 07-27-2021 RBC Auto (Urine sed) [#/Area] 0-1 [HPF] [facility] Automated leukocytes count i n urine sediment (number/area)Ordered By: Gloria Moss on 07-27-2021 WBC Auto (Urine sed) [#/Area] 1-2 [HPF] [facility] Bilirubin Test strip Ql (U)O rdered By: Gloria Moss on 07-27-2021 Bilirubin Ql (U) 1+ Negative [facility] Color Auto (U)Ordered By: Kota Moss on 07-27-2021 Color (U) Dark yellow Yellow [facility] Ketones Auto test strip (U) [Mass/Vol]Ordered By: Gloria Moss on 07-27-2021 Ketones (U) [Mass/Vol] Negative Negative [facility] - UrinalysisOrder ed By: Gloria Moss on 07-27-2021 Hyaline casts LM Ql (Urine sed) 0-8 [LPF] [facility] Nitrite Test strip Ql (U)Ord ered By: Gloria Moss on 07-27-2021 Nitrite Ql (U) Positive Negative [facility] Protein Auto test strip (U) [Mass/Vol]Ordered By: Gloria Moss on 07-27-2021 Protein (U) [Mass/Vol] Negative Negative [facility] Specific gravity Auto test s trip (U) [Rel density]Ordered By: Gloria Moss on 07-27-2021 Specific gravity (U) [Rel density] 1.010 1.001-1.03 0 [facility] Squamous epithelial cells de tection in urine sediment by light microscopyOrdered By: Gloria Moss on 07-27-2021 Epithelial cells.squamous LM Ql (Urine sed) 3-4 [HPF] [facility] Urine bacteria detection by automated methodOrdered By: Gloria Moss on 07-27-2021 Bacteria Auto Ql (U) None seen None Seen [facility] Urine clarity by refractomet ry automatedOrdered By: Gloria Moss on 07-27-2021 Clarity Refractometry automated (U) Clear Clear [facility] Urine culture routineOrdered By: Gloria Moss on 07-27-2021 Bacteria identified Cx Nom (U) No Growth 2 Days [facility] Urine glucose measurement by automated test strip (mass/volume)Ordered By: Gloria Moss on 07-27-2021 Glucose Auto test strip (U) [Mass/Vol] Normal mg/dL Normal [facility] Urine hemoglobin detection b y automated test stripOrdered By: Gloria Moss on 07-27-2021 Hemoglobin Auto test strip Ql (U) Negative Negative [facility] Urine leukocyte esterase det ection by automated test stripOrdered By: Gloria Moss on 07-27-2021 Leukocyte esterase Auto test strip Ql (U) 1+ Negative [facility] Urobilinogen Auto test strip (U) [Mass/Vol]Ordered By: Gloria Moss on 07-27-2021 Urobilinogen (U) [Mass/Vol] Normal mg/dL Normal [facility] pH Auto test strip (U)Ordere d By: Gloria Moss on 07-27-2021 pH (U) 6.5 [pH] 5.0-9.0 [facility] Automated erythrocytes count in urine sediment (number/area)Ordered By: Jennifer Arreaga on 07-22-2021 RBC Auto (Urine sed) [#/Area] 3-4 [HPF] [facility] Automated leukocytes count i n urine sediment (number/area)Ordered By: Jennifer Arreaga on 07-22-2021 WBC Auto (Urine sed) [#/Area] 3-4 [HPF] [facility] Bilirubin Test strip Ql (U)O rdered By: Jennifer Arreaga on 07-22-2021 Bilirubin Ql (U) Negative Negative [facility] Color Auto (U)Ordered By: Sophia Arreaga on 07-22-2021 Color (U) Dark yellow Yellow [facility] Ketones Auto test strip (U) [Mass/Vol]Ordered By: Jennifer Arreaga on 07-22-2021 Ketones (U) [Mass/Vol] Negative Negative [facility] - UrinalysisOrder ed By: Jennifer Arreaga on 07-22-2021 Hyaline casts LM Ql (Urine sed) 0-8 [LPF] [facility] Nitrite Test strip Ql (U)Ord ered By: Jennifer Arreaga on 07-22-2021 Nitrite Ql (U) Positive Negative [facility] Protein Auto test strip (U) [Mass/Vol]Ordered By: Jennifer Arreaga on 07-22-2021 Protein (U) [Mass/Vol] Negative Negative [facility] Specific gravity Auto test s trip (U) [Rel density]Ordered By: Jennifer Arreaga on 07-22-2021 Specific gravity (U) [Rel density] 1.011 1.001-1.03 0 [facility] Squamous epithelial cells de tection in urine sediment by light microscopyOrdered By: Jennifer Arreaga on 07-22-2021 Epithelial cells.squamous LM Ql (Urine sed) 5-9 [HPF] [facility] Urine bacteria detection by automated methodOrdered By: Jennifer Arreaga on 07-22-2021 Bacteria Auto Ql (U) None seen None Seen [facility] Urine clarity by refractomet ry automatedOrdered By: Jennifer Arreaga on 07-22-2021 Clarity Refractometry automated (U) Clear Clear [facility] Urine culture routineOrdered By: Jennifer Arreaga on 07-22-2021 Bacteria identified Cx Nom (U) No Growth 2 Days [facility] Urine glucose measurement by automated test strip (mass/volume)Ordered By: Jennifer Arreaga on 07-22-2021 Glucose Auto test strip (U) [Mass/Vol] Normal mg/dL Normal [facility] Urine hemoglobin detection b y automated test stripOrdered By: Jennifer Arreaga on 07-22-2021 Hemoglobin Auto test strip Ql (U) Negative Negative [facility] Urine leukocyte esterase det ection by automated test stripOrdered By: Jennifer Arreaga on 07-22-2021 Leukocyte esterase Auto test strip Ql (U) 1+ Negative [facility] Urobilinogen Auto test strip (U) [Mass/Vol]Ordered By: Jennifer Arreaga on 07-22-2021 Urobilinogen (U) [Mass/Vol] Normal mg/dL Normal [facility] pH Auto test strip (U)Ordere d By: Jennifer Arreaga on 07-22-2021 pH (U) 5.5 [pH] 5.0-9.0 [facility] Automated erythrocytes count in urine sediment (number/area)Ordered By: Maciej Rodriguez on 07-19-2021 RBC Auto (Urine sed) [#/Area] None seen [HPF] [facility] Automated leukocytes count i n urine sediment (number/area)Ordered By: Maciej Rodriguez on 07-19-2021 WBC Auto (Urine sed) [#/Area] None seen [HPF] [facility] Bilirubin Test strip Ql (U)O rdered By: Maciej Rodriguez on 07-19-2021 Bilirubin Ql (U) 1+ Negative [facility] Color Auto (U)Ordered By: Salvatore Rodriguez on 07-19-2021 Color (U) Dark yellow Yellow [facility] Ketones Auto test strip (U) [Mass/Vol]Ordered By: Maciej Rodriguez on 07-19-2021 Ketones (U) [Mass/Vol] Negative Negative [facility] - UrinalysisOrder ed By: Maciej Rodriguez on 07-19-2021 Hyaline casts LM Ql (Urine sed) 0-8 [LPF] [facility] Nitrite Test strip Ql (U)Ord ered By: Maciej Rodriguez on 07-19-2021 Nitrite Ql (U) Positive Negative [facility] Protein Auto test strip (U) [Mass/Vol]Ordered By: Maciej Rodriguez on 07-19-2021 Protein (U) [Mass/Vol] Negative Negative [facility] Specific gravity Auto test s trip (U) [Rel density]Ordered By: Maciej Rodriguez on 07-19-2021 Specific gravity (U) [Rel density] 1.007 1.001-1.03 0 [facility] Squamous epithelial cells de tection in urine sediment by light microscopyOrdered By: Maciej Rodriguez on 07-19-2021 Epithelial cells.squamous LM Ql (Urine sed) 0-1 [HPF] [facility] Urine bacteria detection by automated methodOrdered By: Maciej Rodriguez on 07-19-2021 Bacteria Auto Ql (U) None seen None Seen [facility] Urine clarity by refractomet ry automatedOrdered By: Maciej Rodriguez on 07-19-2021 Clarity Refractometry automated (U) Clear Clear [facility] Urine culture routineOrdered By: Maciej Rodriguez on 07-19-2021 Bacteria identified Cx Nom (U) 2 Days [facility] Urine glucose measurement by automated test strip (mass/volume)Ordered By: Maciej Rodriguez on 07-19-2021 Glucose Auto test strip (U) [Mass/Vol] Normal mg/dL Normal [facility] Urine hemoglobin detection b y automated test stripOrdered By: Maciej Rodriguez on 07-19-2021 Hemoglobin Auto test strip Ql (U) Negative Negative [facility] Urine leukocyte esterase det ection by automated test stripOrdered By: Maciej Rodriguez on 07-19-2021 Leukocyte esterase Auto test strip Ql (U) 1+ Negative [facility] Urobilinogen Auto test strip (U) [Mass/Vol]Ordered By: Maciej Rodriguez on 07-19-2021 Urobilinogen (U) [Mass/Vol] Normal mg/dL Normal [facility] pH Auto test strip (U)Ordere d By: Maciej Rodriguez on 07-19-2021 pH (U) 5.5 [pH] 5.0-9.0 [facility] History and Physicalon 10-03 History and Physical MR#: [id number] Pt. Name: Maegan Dye Admitted: 09/27/2017 Date of : 1950 Attending Physician: Stormy James MD Room #: 5AB [id number] Discharge Date: 09/29/2017 HISTORY AND PHYSICALCHIEF COMPLAINT: Level 2 trauma.HISTORY OF PRESENT ILLNESS: The patient is a 67-year-old female, whopresents to the Emergency Department as a level 2 trauma following a fallfrom standing. The patient was reportedly in backyard and was walking on aflower pot and reportedly fell and hit her head. The patient wastransferred here from an outside hospital, where a CT scan was performed,which demonstrated subdural hematoma approximately 4.5 mm in size. Thepatient denies loss of consciousness. The contacting surface was cement.The patient's past medical history is significant for DVT. The patient sadie Chong.PAST MEDICAL HISTORY: Posttraumatic stress disorder, depression,hypertension, history of DVT, GERD, [place], chronic back pain.PAST SURGICAL HISTORY: Pain pump, hysterectomy, left ORIF, appendectomy.ALLERGIES: Compazine, Neosporin, bacitracin, methadone, phenothiazine,shellfish.FA JULIANE MEDICAL HISTORY: Positive for alcoholism in mother, father andbrother. Positive for COPD in mother and brother. Positive for cancer infather.SOCIAL HISTORY: Denies alcohol, tobacco, or illicit drug use.REVIEW OF SYSTEMS: Positive for headache and is negative unless otherwisestated for a 12-point review of systems.LABORATORY DATA: CT head from outside hospital demonstrates a 4.5 mmsubdural hemorrhage. C-spine CT was negative. All other labs are pendingat this time.PHYSICAL EXAMINATION: Airway is intact and trachea is midline. Breathingis spontaneous. Breath sounds are clear and equal bilaterally.CIRCULATION: 2+ femoral pulses on the right and the left. 2+ DP and PTpulses on the right and the left. 2+ radial pulses bilaterally.NEUROLOGIC: Awake, alert, and oriented to person, place, and time.HEENT: Pupils are reactive to light and 3 mm. The patient is cooperative.Head, there is a laceration to her left forehead with dry blood present.TMs are clear. Teeth are intact.NECK: No obvious injury. No C-spine tenderness.CHEST: No obvious injury. Breath sounds are symmetrical.HEART: Tones regular rate and rhythm.ABDOMEN: Soft, nondistended, nontender. There is no obvious injury to thearea. Bowel sounds are present.PELVIS: Stable.EXTREMITIES: Bilateral upper extremities are with sensory and motorintact. Bilateral lower extremities, sensory and motor intact.SPINE: There is some lumbar spine tenderness, however, this is chronic forpatient.ASSESSMENT: A 67-year-old female presenting from outside hospital as alevel 2 trauma following a fall from standing with a subdural hematoma.PLAN:1. Admit to the Trauma Surgery Service in the ICU bed.2. Every 1 hour neuro checks.3. Every 1 hour vital signs.4. Neurosurgery consult.5. Pain control.6. We will repair laceration of left forehead.7. Pain control.Reviewed By:Meghann Ren MD 10/08/2017 06:27 PElectronically Signed by:Stormy James MD 10/17/2017 06:49 P Stormy James MD I personally saw this patient on the day of the encounter, performed thekey portion(s) of the service and participated in the management andconfirm the resident's documentation. Please note there may be anadditional personal documentation from me. Date Dict: 10/02/2017/07:00 P/Dakota Odonnell Trans: 10/03/2017 05:29 [id number] Normal [facility] CREATININE URINE RANDOMon Creatinine 66.0 mg/dL Normal [facility] Comment on above: Result Comment: Ther e are no established reference values for random urine specimens Performed By: #### 1 0054, [id number] ####[facility] Discharge Summaryon 09-30-19 18 Discharge Summary MR[id number] Admitted: 09/27/2017 Discharged: 09/29/2017 Date of : 1950 Physician: Stormy James MD DISCHARGE SUMMARYPRIMARY DIAGNOSIS: Subdural hematoma.SECONDARY DIAGNOSES: History of deep venous thrombosis, on Eliquis;chronic low back pain.HOSPITAL COURSE: The patient is a 67-year-old female, who [facility], status post a fall. The patient is currently onEliquis for history of DVT. The patient initially presented to an outsidehospital where CT head demonstrated a subdural hematoma on the left side.The patient was then transferred to [facility] for further evaluation by theNeurosurgery team. The patient was evaluated both by the trauma serviceand neurosurgery service. The patient was admitted to the surgical ICU formonitoring. The patient's clinical course improved during her ICU stay.The patient has been transferred to step-down. A repeat CT brain wascompleted and demonstrated no worsening of the subdural hematomas. Thepatient was tolerating a regular diet and ambulating while admitted. Thepatient's hospital course is otherwise unremarkable.DISCHARGE DISPOSITION: The patient will be discharged to home in good andstable condition.DISCHARGE INSTRUCTIONS: The patient will be given discharge instructions.The patient is to hold her Eliquis for 1-2 weeks until her followupappointment with Neurosurgery. The patient understands the plan and allquestions and concerns were addressed.Electronically Signed by:Stormy James MD 09/30/2017 03:49 P Stormy James MD I personally saw this patient on the day of the encounter, performed thekey portion(s) of the service and participated in the management andconfirm the resident's documentation. Please note there may be anadditional personal documentation from me. Date Dict: 09/29/2017/07:43 A/Letitia Ruiz, CANDACEate Trans: 09/29/2017 08:00 [id number] c: Tomas Farrell D.O. [address] [facility] [address] Normal [facility] SODIUM URINE RANDOMon 2017 Sodium 41 mmol/L Normal [facility] Comment on above: Result Comment: Ther e are no established reference values for random urine specimens Performed By: #### 1 53, ####[facility] [place] [address], [facility] TOX PANEL URINEon 09-29-2017 50 THC Negative Normal NEGATIVE [facility] Comment on above: Performed By: #### 1 53, ####[facility] [place] [address], [facility] BARBITURATES Negative Normal NEGATIVE [facility] Comment on above: Performed By: #### 1 ####[facility] [place] [address], [facility] MONO AMPHET Negative Normal NEGATIVE [facility] Comment on above: Performed By: #### 1 53, ####[facility] [place] [address], [facility] PROPOXYPHENE Negative Normal NEGATIVE [facility] Comment on above: Performed By: #### 1 ####[facility] [place] [address], [facility] TRICYCLICS Negative Normal NEGATIVE [facility] Comment on above: Performed By: #### 1 ####[facility] [place] [address], [place] Urine, benzodiazepines presence Negative Normal NEGATIVE [facility] Comment on above: Performed By: #### 1 ####[facility] [place] [address], [place] Urine, cocaine presence Negative Normal NEGATIVE [facility] Comment on above: Performed By: #### 1 ####[facility] [place] [address], [place] Urine, methadone presence Negative Normal NEGATIVE [facility] Comment on above: Performed By: #### 1 ####[facility] [place] [address], [place] Urine, opiates presence Positive Abnormal NEGATIVE [facility] Comment on above: Performed By: #### 1 ####[facility] [place] [address], [facility] Urine, phencyclidine presence Negative Normal NEGATIVE [facility] Comment on above: Performed By: #### 1 ####[facility] [place] [address], [facility] URINALYSIS REFLEXon 09-30-19 18 Bilirubin (total) Negative Normal NEGATIVE [facility] Comment on above: Order Comment: No: D o not add to previous draw Performed By: #### 1 ####[facility] [place] [address], [place] BLOOD SMALL Abnormal NEGATIVE [facility] Comment on above: Order Comment: No: D o not add to previous draw Performed By: #### 1 ####[facility] [place] [address], [place] EPIS MANY Abnormal FEW,OCC,NO NE SEEN [facility] Comment on above: Order Comment: No: D o not add to previous draw Performed By: #### 1 53, ####[facility] [place] [address], [place] Glucose mass conc Negative Normal NEGATIVE [facility] Comment on above: Order Comment: No: D o not add to previous draw Performed By: #### 1 53, ####[facility] [place] [address], [place] KETONE Negative Normal NEGATIVE [facility] Comment on above: Order Comment: No: D o not add to previous draw Performed By: #### 1 ####[facility] [place] [address], [place] LEUK ZENA Negative Normal NEGATIVE [facility] Comment on above: Order Comment: No: D o not add to previous draw Performed By: #### 1 ####[facility] [place] [address], [place] MUCUS THREADS OCC Abnormal NONE SEEN [facility] Comment on above: Order Comment: No: D o not add to previous draw Performed By: #### 1 ####[facility] [place] [address], [place] pH of blood 5.0 [pH] Normal 5.0-8.0 [facility] Comment on above: Order Comment: No: D o not add to previous draw Performed By: #### 1 ####[facility] [place] [address], [place] Protein Negative Normal NEGATIVE [facility] Comment on above: Order Comment: No: D o not add to previous draw Performed By: #### 1 ####[facility] SPEC GRAV 1.008 Low 1.015-1.02 0 [facility] Comment on above: Order Comment: No: D o not add to previous draw Performed By: #### 1 53, ####[facility] [place] [address], [facility] Urine, appearance CLEAR Normal CLEAR [facility] Comment on above: Order Comment: No: D o not add to previous draw Performed By: #### 1 53, ####[facility].[address] Urine, bacteria in sediment OCC Abnormal NONE SEEN [facility] Comment on above: Order Comment: No: D o not add to previous draw Performed By: #### 1 53, ####[facility] Urine, color STRAW Abnormal YELLOW [facility] Comment on above: Order Comment: No: D o not add to previous draw Performed By: #### 1 53, ####[facility] [place] [address], [facility] Urine, nitrite presence Negative Normal NEGATIVE [facility] Comment on above: Order Comment: No: D o not add to previous draw Performed By: #### 1 53, ####[facility] [place] [address], [facility] WBC UA 3-5 Abnormal NONE SEEN [facility] Comment on above: Order Comment: No: D o not add to previous draw Performed By: #### 1 53, ####[facility].[address] BASIC METABOLIC PANELon 05-0 Calcium 8.2 mg/dL Low 8.6-10.3 [facility] Comment on above: Order Comment: No: D o not add to previous draw Performed By: #### 0 1, 10503, 80321, 83475 ####[facility] [place] [address], [facility] Chloride 107 mmol/L Normal 98-107 [facility] Comment on above: Order Comment: No: D o not add to previous draw Performed By: #### 0 0071, 49357, 81597, 83562 ####[facility] [place] [address], [place] CO2 29 mmol/L Normal 21-31 [facility] Comment on above: Order Comment: No: D o not add to previous draw Performed By: #### 0 0071, 66559, 59190, 66120 ####[facility] [place] [address], [facility] Creatinine 1.24 mg/dL High 0.60-1.20 [facility] Comment on above: Order Comment: No: D o not add to previous draw Performed By: #### 0 0071, 65007, 93696, 00724 ####[facility] [place] [address], [facility] eGFR (black) 52 ml/min/1.73sq m Abnormal >60 [facility] Comment on above: Order Comment: No: D o not add to previous draw Performed By: #### 0 0071, 10057, 67664, 34011 ####[facility] [place] [address], [facility] eGFR (non-black) 43 ml/min/1.73sq m Abnormal >60 [facility] Comment on above: Order Comment: No: D o not add to previous draw Performed By: #### 0 0071, 40019, 98422, 15251 ####[facility] [place] [address], [facility] Glucose mass conc 115 mg/dL High 70-100 [facility] Comment on above: Order Comment: No: D o not add to previous draw Performed By: #### 0 0071, 03647, 14688, 98494 ####[facility] [place] [address], [facility] Potassium molar conc 4.1 mmol/L Normal 3.5-5.1 [facility] Comment on above: Order Comment: No: D o not add to previous draw Performed By: #### 0 0071, 55158, 52045, 30242 ####[facility] Sodium 138 mmol/L Normal 136-145 [facility] Comment on above: Order Comment: No: D o not add to previous draw Performed By: #### 0 0071, 91164, 05929, 55371 ####[facility] Urea nitrogen 12 mg/dL Normal 7-25 [facility] Comment on above: Order Comment: No: D o not add to previous draw Performed By: #### 0 0071, 03417, 82618, 53229 ####[facility] CBC COMPLETE BLOOD COUNTon 0 - Erythrocyte distribution width Auto Ratio (RBC) 12.1 % Normal 11.5-15.0 [facility] Comment on above: Order Comment: No: D o not add to previous draw Performed By: #### 5 0608 ####[facility] [place] [address], [facility] Erythrocytes (RBC) 0 % Normal 0-0 [facility] Comment on above: Order Comment: No: D o not add to previous draw Performed By: #### 5 0608 ####[facility] [place] [address], [facility] Erythrocytes (RBC) 2.94 10*6/uL Low 3.80-5.00 [facility] Comment on above: Order Comment: No: D o not add to previous draw Performed By: #### 5 0608 ####[facility] Hematocrit (HCT) 28.2 % Low 36.0-45.0 [facility] Comment on above: Order Comment: No: D o not add to previous draw Performed By: #### 5 0608 ####[facility] Hemoglobin mass conc (Bld) 8.5 g/dL Low 12.0-15.0 [facility] Comment on above: Order Comment: No: D o not add to previous draw Performed By: #### 5 0608 ####[address] MCH 28.9 pg Normal 27.0-33.0 [facility] Comment on above: Order Comment: No: D o not add to previous draw Performed By: #### 5 0608 ####[facility] MCHC mass conc (RBC) 30.1 g/dL Low 32.0-35.0 [facility] Comment on above: Order Comment: No: D o not add to previous draw Performed By: #### 5 0608 ####[facility] MCV 95.9 fL Normal 82.0-98.0 [facility] Comment on above: Order Comment: No: D o not add to previous draw Performed By: #### 5 0608 ####[facility] [place] [address] [place] [address], [facility] PLAT CNT 195 10*3/uL Normal 150-400 [facility] Comment on above: Order Comment: No: D o not add to previous draw Performed By: #### 5 0608 ####[facility] [address] WBC (Leukocytes) 6.01 10*3/uL Normal 4.00-10.60 [facility] Comment on above: Order Comment: No: D o not add to previous draw Performed By: #### 5 0608 ####[address] BRAIN WO CONTRASTon 09-28 CT BRAIN WO CONTRAST [facility] Opdygrjdv[address] [place] [address] [phone] Brittnee ent Name: MAEGAN DYE : 1950Sex: FAge: Race: WhiteMRN: [id number]. Location: [id number] Status: IVisit #: [id number] Date: 09/27/2017 10:30:00 PMCompleted Date: 09/27/2017 10:49 PMRequesting Provider: MEGHANN REN Attending Provider: STORMY JAMES Report Copy To: Signs & Symptoms: BleedHistory: Patient history not availableComments: Progression of Known BleedExam: CT BRAIN WO CONTRASTAccession #: [id number] ===CT BRAIN WO CONTRAST 09/27/2017 10:49 PM EDT SIGNS AND SYMPTOMS: Bleed TECHNOLOGIST COMMENTS: Progression of known bleed s/p fall today. Bruising on lt side of forehead and over lt eye. QUESTION FOR THE RADIOLOGIST: Progression of Known Bleed PROTOCOL: Axial CT images of the head were obtained without IV contrast. TECHNIQUE:Multi-detector CT axial slices of the brain were obtained without IV contrast. Helical,sagittal, coronal, and 3-D reconstructions were performed and viewed on a separate workstation. COMPARISON: None. FINDINGS: Acute subdural hematoma measuring 7 mm in thickness over the left frontal and parietal lobe. There is no shift of midline structure, mass effect, or herniation. No evidence of acute ischemia. The ventricular system is normal in size. The brainstem and the cerebellum are unremarkable. The visualized intraorbital contents, the visualized paranasal sinuses, and the infratemporal soft tissues show no acute abnormality. The osseous structures in the skull base and the calvarium show no abnormality. Soft tissue swelling over the left frontal bone with small air bubbles suggesting laceration and small scalp hematoma. IMPRESSION: 1. Acute subdural hematoma measuring 7 mm in thickness over the left frontal and parietal lobe with no midline shift, mass effect, or herniation. Approved by:Karsten Orellana on 09/27/2017 11:30 PM EDT. I, Suhail Trinh, have reviewed the images and report and concur with these findings. Electronically signed by:Suhail Trinh. Transcribed by: [email or web address], User Resident: KARSTEN ORELLANAElectronically Signed by: SUHAIL TRINH @ 09/28/2017 06:32 AMI personally read this/these film(s) with this resident Normal [facility] Comment on above: Order Comment: No: D o not add to previous draw Consultationon 09-28-2017 Consultation MR#: [id number] Pt. Name: Maegan Dye Date of Service: 09/28/2017 Room #: REINALDO [id number] Birthdate: 1950 Referring Physician: CONSULTATIONCLINICAL SERVICE: Neurosurgery.TRAUMA NAME: Female Hydrogen.REASON FOR CONSULT: Subdural hematoma status post fall.HISTORY OF PRESENT ILLNESS: A 67-year-old woman status post fall. She sadie Eliquis for anticoagulation. She reportedly fell and hit the sidewalk,tripping over the pavement. There was reported loss of consciousness withaltered mental status and she went to [facility] initially forevaluation. There, her head CT showed subdural hematoma on the left side.She was transferred to [facility] for further evaluation and management.The patient was seen by the trauma team and by the resident house staff forneurosurgical consultation later in the day on 09/27/2017. She wasidentified as GCS 15 on their evaluation[address] Her CT showed a small subduralhematoma without mass effect. Her Eliquis was stopped and she was given 2units of FFP.REVIEW OF SYSTEMS: Some headache, but not severe.No neck pain.Chronic back pain.No change in bowel or bladder.Alert, awake, and oriented.No seizure.Other review of systems, negative.PAST MEDICAL HISTORY: Chronic back pain, hypertension, DVT lowerextremity, GERD, posttraumatic stress disorder, and hyperlipidemia.PAST SURGICAL HISTORY: She has a pain pump and has had multiple orthopedicprocedures.FAMIL Y HISTORY: No history of clotting or bleeding disorder. Her motherwas both hypertensive and alcoholic.SOCIAL HISTORY: She lives with her son and does not drink or use drugs.HOME MEDICATIONS: Tylenol, albuterol, nebulizer for breathing, Eliquis,celecoxib, citalopram, clonazepam, multivitamin, cyclobenzaprine, Colace,lisinopril, pantoprazole, promethazine, trazodone, Tums, zolpidem.PHYSICAL EXAMINATION: VITAL SIGNS: On exam, she is afebrile. Her heartrates in the 50s, blood pressure is upper 80s over 50s, sats are in the midlow to mid 90s.GENERAL: She is age appropriate, she is somewhat impulsive. She is in theICU and the nurse was working to get her up to the bedside commode. She isawake, alert, and oriented.NEUROLOGIC: Her cranial nerves are intact. She has small amount of bloodstaining in her hair on the left side. There is no gross cranialdeformity. No active bleeding. She does have some periorbital edema andbruising on the left side. Motor and sensory intact. Speech and cognitionare appropriate. Gait and station are minimally off. Nonpathologicreflexes.RESP IRATORY/CARDIOVASCULAR: Normal.ABDOMEN: Soft and nontender.MOOD/AFFECT: Appropriate.REVIEW OF FILMS: I was unable to see her initial CT scan as the films werenot able to be successfully improrted into the [facility] P[facility] , but she does have a left-sided convexity subduralhematoma, which is thin, having minimal mass effect on the brain, it isapproximately 4 mm thick, but does span over several centimeters from topto bottom on the coronal recons. There is no hydrocephalus. Nointraparenchymal hemorrhage. No mass effect.ASSESSMENT AND PLAN: A 67-year-old woman with modest size left subduralhematoma status post fall, on anticoagulation apparently for her history ofDVT. She should hold the anticoagulation for the time being. She wasgiven FFP. She is being monitored in the ICU and has not had anyneurologic change. She can likely transition to floor care step-down latertoday, which is stay off her Eliquis at least a few weeks. She shouldfollow up with me in approximately 2 to 3 weeks with a new noncontrast headCT at that time. We will follow her while she is in the hospital. Thereis no indication for neurosurgical intervention at this time.Electronically Signed by:Kyle Ken MD 10/12/2017 06:09 P __Kyle Ken, MDDate Dict: 09/28/2017/10:37 A/Kyle Ken MDDate Trans: 09/28/2017 04:01 P/[id number] c: Tomas Farrell D.O. [address] [facility] [address] Normal [facility] Consultation MR#: [id number] Pt. Name: Maegan Dye Date of Service: 09/27/2017 Room #: [facility] [id number] Birthdate: 1950 Referring Physician: CONSULTATIONTRAUMA NAME: Female Hydrogen.SERVICES: Surgical ICU.REASON FOR CONSULTATION: Subdural hematoma.HISTORY OF PRESENTING ILLNESS: This is a middle-aged female, presentedinitially to [facility] as a trauma after a mechanical fall. The patientstates she was walking in her backyard and fell on a cement ground fromstanding level. Standby are stated that the patient had loss ofconsciousness and was altered. The patient was taken initially Penny[facility]. CAT scan of the head and neck showed a 4 mm subduralhematoma. No midline shift and no neck injury. Due to this patient'sinjuries, she was transferred to [facility] for further management. Onpresentation, the patient was brought in as a level 2 trauma. She had apatent airway, bilateral breath sounds. Palpable pulses. A GCS of 15.Identified injuries include a laceration on the left side of the patient'sforehead. No other identified injuries. The patient is known to havechronic back pain and was complaining of mild tenderness in her lower back.She has a pain pump and she has a history of multiple fractures in herlower extremity with obvious deformities that are of chronic nature. Thepatient was uncooperative in the ED and would not stay still and got out ofbed.PAST MEDICAL HISTORY: Chronic back pain, hypertension, hyperlipidemia,history of DVT in the lower extremity, GERD, PTSD.PAST SURGICAL HISTORY: Pain pump placement, multiple orthopedicprocedures.FAMIL Y HISTORY: No history of bleeding or clotting. Mother was analcoholic and hypertensive.SOCIAL HISTORY: She denies smoking. Occasionally drinks alcohol. Deniesdrug abuse. Lives with her son.MEDICATIONS: The patient is on Tylenol, albuterol, nebulizer, Eliquis,celecoxib, citalopram, clonazepam, multivitamin, cyclobenzaprine, Docusate,lisinopril, pantoprazole, promethazine, trazodone, Tums, and zolpidem.ALLERGIES: The patient is allergic to Neosporin, Stadol, bacitracin,methadone, phenothiazine, shellfish, prochlorperazine.PHYSICAL EXAMINATION: VITAL SIGNS: The patient's temperature is 36.7,pulse of 63, blood pressure of 108/68, respirations 18, oxygen poeeffprou639% on room air.GENERAL: The patient looks well. She is obese.HEAD: Head is traumatic. The patient has a laceration on the left side ofthe forehead.NECK: Supple. Trachea is midline.ABDOMEN: Soft, nontender, nondistended.EXTREMITIES: The patient has bilateral lower extremity deformity fromprior fractures, nothing acute. She has palpable pulses. Upper extremityare within normal.PSYCHIATRIC: No active delusions or hallucinations. The patient wasuncooperative.NEUROLOGI C: GCS 15. Awake, oriented x3.LABS: Currently pending.IMAGING STUDIES: CT of the head shows a [address] of theneck shows no acute injuries. CT of the abdomen and pelvis are currentlypending.ASSESSMEN T: This is a middle-aged female presents as a level 2 traumaafter a mechanical fall, had a subdural hematoma and a laceration on theforehead.PLAN:1. Admission to the medical ICU for the head bleed.2. Neurologic. The patient has a subdural hematoma, 4 mm. Start the patient on Keppra for 7 days, IV 500 b.i.d. Consult Neurosurgery.3. Cardiac. The patient denies any cardiac history. She is currently stable. Telemetry.4. Respiratory. She is breathing room air with 100% O2 saturation nasal cannula as needed and continuous pulse ox.5. Hemoglobin, followup labs.6. Infectious. The patient is afebrile. Follow up CBC.7. Renal. The patient is not known to have any renal disease. Follow urine tox.8. Endocrine. The patient is not a diabetic. No history of thyroid disease.9. Prophylaxis. Protonix as home medications for GERD. DVT prophylaxis on hold until approved by Neurosurgery.10. Lines. The patient has peripheral IV x2.11. Disposition. Admission to ICU and continue ICU management.Dr. Stormy James was present in the [facility].Electronically Signed by:Stormy James MD 10/17/2017 06:49 P __Stormy James MD I personally saw this patient on the day of the encounter, performed thekey portion(s) of the service and participated in the management andconfirm the resident's documentation. Please note there may be anadditional personal documentation from me. Date Dict: 09/27/2017/05:09 P/Dakota Donald Trans: 09/28/2017 03:47 A/[id number]_[id number] Normal [facility] MAGNESIUM BLOODon 09-28-2017 Magnesium 1.8 mg/dL Low 1.9-2.7 [facility] Comment on above: Order Comment: No: D o not add to previous draw Performed By: #### 0 0071, [id number], [id number], 79972 ####[facility] [address], [facility] PHOSPHORUS BLOODon 8 Phosphate 4.4 mg/dL Normal 2.5-5.0 [facility] Comment on above: Order Comment: No: D o not add to previous draw Performed By: #### 0 0071, [id number], 45650, 41057 ####[facility] [place] [address], [facility] TROPONIN-Ion 09-28-2017 Troponin I.cardiac mass conc 0.01 ng/mL Normal 0.00-0.04 [facility] Comment on above: Result Comment: REFE RENCE RANGES: 0.00 - 0.04 ng/ml NORMAL 0.05 - 0.50 ng/ml INDETERMINATE > 0.50 ng/ml CONSISTENT WITH AN M.I. Performed By: #### 1 53, ####[facility] [address], [facility] ALCOHOLon 09-27-2017 Ethanol NONE DETECTED Normal [facility] Comment on above: Result Comment: Divi de by 1000 to convert mg/dL to percent. Example: 100mg/dL = 0.1%. Performed By: #### 1 53, ####[facility] [place] [address], [facility] APTTon 09-27-2017 aPTT 36.2 s High 25.0-35.0 [facility] Comment on above: Order Comment: No: D o not add to previous draw Result Comment: ALL RESULTS MUST BE INTERPRETED WITH RESPECT TO BLOOD DRAWING ARTIFACTOR DILUTION ERROR OF ANTICOAGULANT AT THE TIME OF SAMPLING.THE APTT SHOULD NOT BE USED TO MONITOR UNFRACTIONATED HEPARIN THERAPY, THIS LABORATORY NO LONGER HAS AN ESTABLISHED THERAPEUTIC RANGE BASEDON THE APTT. IT IS RECOMMENDED THAT THE [facility] - HEPARIN ASSAY (ANTI-XAACTIVITY) BE USED FOR THIS PURPOSE. Performed By: #### 5 7307, 55143 ####[facility] [place] [address], [facility] BASIC METABOLIC PANELon 05-0 Calcium 9.2 mg/dL Normal 8.6-10.3 [facility] Comment on above: Order Comment: No: D o not add to previous draw Performed By: #### 0 0071 ####[facility] [place] [address], [facility] Chloride 101 mmol/L Normal 98-107 [facility] Comment on above: Order Comment: No: D o not add to previous draw Performed By: #### 0 0071 ####[facility] [place] [address], [facility] CO2 27 mmol/L Normal 21-31 [facility] Comment on above: Order Comment: No: D o not add to previous draw Performed By: #### 0 0071 ####[facility] [place] [address], [facility] Creatinine 1.28 mg/dL High 0.60-1.20 [facility] Comment on above: Order Comment: No: D o not add to previous draw Performed By: #### 0 0071 ####[facility] [place] [address], [facility] eGFR (black) 50 ml/min/1.73sq m Abnormal >60 [facility] Comment on above: Order Comment: No: D o not add to previous draw Performed By: #### 0 0071 ####[facility] [place] [address], [facility] eGFR (non-black) 42 ml/min/1.73sq m Abnormal >60 [facility] Comment on above: Order Comment: No: D o not add to previous draw Performed By: #### 0 0071 ####[facility] [id number] Glucose mass conc 104 mg/dL High 70-100 [facility] Comment on above: Order Comment: No: D o not add to previous draw Performed By: #### 0 0071 ####[facility] [address] Potassium molar conc 4.4 mmol/L Normal 3.5-5.1 [facility] Comment on above: Order Comment: No: D o not add to previous draw Performed By: #### 0 0071 ####[facility] [address] Sodium 134 mmol/L Low 136-145 [facility] Comment on above: Order Comment: No: D o not add to previous draw Performed By: #### 0 0071 ####[address] Urea nitrogen 13 mg/dL Normal 7-25 [facility] Comment on above: Order Comment: No: D o not add to previous draw Performed By: #### 0 0071 ####[facility] [address] CBC W/DIFFon 09-27-2017 ABS BASOPHILS 0.1 10*3/uL Normal 0.0-0.2 [facility] Comment on above: Performed By: #### 5 3 ####[facility] [address] ABS IMM GRANS 0.1 10*3/uL Normal 0.0-0.2 [facility] Comment on above: Performed By: #### 5 3 ####[facility] [address] Basophils Auto #/vol (Bld) 0.9 % Normal 0.0-1.0 [facility] Comment on above: Performed By: #### 5 3 ####[facility] [place] [address], [facility] Eosinophils 0.2 10*3/uL Normal 0.0-0.5 [facility] Comment on above: Performed By: #### 5 0103 ####[facility] [address], [facility] Eosinophils/100 leukocytes 2.3 % Normal 0.0-6.0 [facility] Comment on above: Performed By: #### 5 0103 ####[facility].[address] Erythrocyte distribution width Auto Ratio (RBC) 12.2 % Normal 11.5-15.0 [facility] Comment on above: Performed By: #### 5 0103 ####[facility].[address] Erythrocytes (RBC) 0 % Normal 0-0 [facility] Comment on above: Performed By: #### 5 0103 ####[facility] [place] [address], [facility] Erythrocytes (RBC) 3.31 10*6/uL Low 3.80-5.00 [facility] Comment on above: Performed By: #### 5 0103 ####[facility].[address] Hematocrit (HCT) 30.5 % Low 36.0-45.0 [facility] Comment on above: Performed By: #### 5 0103 ####[facility] [place] [address], [facility] Hemoglobin mass conc (Bld) 9.7 g/dL Low 12.0-15.0 [facility] Comment on above: Performed By: #### 5 0103 ####[facility] [place] [address], [facility] IMMATURE GRANS 0.5 % Normal 0.0-1.0 [facility] Comment on above: Performed By: #### 5 0103 ####[facility] Lymphocytes 2.5 10*3/uL Normal 1.2-4.0 [facility] Comment on above: Performed By: #### 5 0103 ####[facility] [address] Lymphocytes/100 leukocytes 24.5 % Normal 20.0-45.0 [facility] Comment on above: Performed By: #### 5 0103 ####[facility] [address] MCH 29.3 pg Normal 27.0-33.0 [facility] Comment on above: Performed By: #### 5 102 ####[facility] MCHC mass conc (RBC) 31.8 g/dL Low 32.0-35.0 [facility] Comment on above: Performed By: #### 5 0103 ####[facility] [place] [address] MCV 92.1 fL Normal 82.0-98.0 [facility] Comment on above: Performed By: #### 5 0103 ####[facility] Monocytes 0.8 10*3/uL Normal 0.1-1.0 [facility] Comment on above: Performed By: #### 5 0103 ####[facility] [address] MONOS 8.1 % Normal 5.0-12.0 [facility] Comment on above: Performed By: #### 5 3 ####[facility] [place] Neutrophils 6.4 10*3/uL Normal 1.6-7.6 [facility] Comment on above: Performed By: #### 5 0103 ####[facility] Neutrophils/100 leukocytes 63.7 % Normal 40.0-72.0 [facility] Comment on above: Performed By: #### 5 0103 ####[facility] [address] PLAT CNT 214 10*3/uL Normal 150-400 [facility] Comment on above: Performed By: #### 5 0103 ####[facility] [address] WBC (Leukocytes) 10.06 10*3/uL Normal 4.00-10.60 [facility] Comment on above: Performed By: #### 5 0103 ####[facility] [address] LACTATE BLOODon 09-27-2017 Lactate 0.6 mmol/L Normal .5-2.2 [facility] Comment on above: Order Comment: No: D o not add to previous draw Performed By: #### 1 0054, 76972 ####[facility] [address] PROTHROMBIN TIMEon 8 INR Coag RelTime (PPP) 1.31 {INR} High 0.91-1.16 Th [facility] Comment on above: Order Comment: No: D o not add to previous draw Result Comment: ACCC P RECOMMENDED INR FOR WARFARIN THERAPY CONDITION INRPROPHYLAXIS OF VENOUS THROMBOSIS 2-3(HIGH-RISK SURGERY)TREATMENT OF VENOUS THROMBOSIS 2-3TREATMENT OF PULMONARY EMBOLISM 2-3PREVENTION OF SYSTEMIC EMBOLISM: 2-3 ACUTE MYOCARDIAL INFARCTION TISSUE HEART VALVES VALVULAR HEART DISEASE ATRIAL FIBRILLATION RECURRENT SYSTEMIC EMBOLISMMECHANICAL HEART VALVE 2.5-3.5 FROM: ORAL ANTICOAGULANTS. MECHANISM OF ACTION, CLINICALEFFECTIVENESS, AND OPTIMAL THERAPEUTIC RANGE. [id number];108:[id number]-246S. Performed By: #### 5 7307, 69187 ####[facility] [address] Prothrombin time (PT) Coag time (PPP) 16.3 s High 12.3-14.8 [facility] Comment on above: Order Comment: No: D o not add to previous draw Result Comment: ALL RESULTS MUST BE INTERPRETED WITH RESPECT TO BLOOD DRAWING ARTIFACTOR DILUTION ERROR OF ANTICOAGULANT AT THE TIME OF SAMPLING. Performed By: #### 5 7307, 23024 ####[facility].[address] Vital Signs Date Time Vital Sign Value Performing Clinician Facility 01-28-2024 18:26-0400 Body temperature 97.88 [degF] [facility] 01-28-2024 18:26-0400 Diastolic blood pressure 68 mm[Hg] [facility] 01-28-2024 18:26-0400 Heart rate 76 /min [facility] 01-28-2024 18:26-0400 Respiratory rate 16 /min [facility] 01-28-2024 18:26-0400 SaO2% (BldA) [Mass fraction] 96 % [facility] 01-28-2024 18:26-0400 Systolic blood pressure 142 mm[Hg] [facility] 01-10-2024 20:55-0400 Body temperature 97.7 [degF] Julio Cinn Dokken [facility] 01-10-2024 20:55-0400 Diastolic blood pressure 66 mm[Hg] Speedyylinn Dokken [facility] 01-10-2024 20:55-0400 Heart rate 93 /min Chelon Dokken [facility] 01-10-2024 20:55-0400 Respiratory rate 16 /min Chelon Dokken [facility] 01-10-2024 20:55-0400 SaO2% (BldA) [Mass fraction] 96 % Chelon Dokken [facility] 01-10-2024 20:55-0400 Systolic blood pressure 157 mm[Hg] Julio Cinn Dokken [facility] 01-02-2024 10:58-0400 Blood Pressure Location Amarilis Vinayer [facility] 01-02-2024 10:58-0400 Body temperature 99.68 [degF] Amarilis Bordner [facility] 01-02-2024 10:58-0400 Diastolic blood pressure 68 mm[Hg] Amarilis Bordner [facility] 01-02-2024 10:58-0400 Heart rate 76 /min Amarilis Bordner [facility] 01-02-2024 10:58-0400 Respiratory rate 18 /min Amarilis Bordner [facility] 01-02-2024 10:58-0400 Systolic blood pressure 148 mm[Hg] Amarilis Bordner [facility] 09-12-2023 15:34-0400 [facility]ly [facility]ing [facility]-12-[facility] 15:34-0400 Promise to Return [facility] 09-12-2023 14:36-0400 Hourly Rounding [facility] 09-12-2023 14:36-0400 Promise to Return [facility] 09-12-2023 13:15-0400 Hourly Rounding [facility] 09-12-2023 13:13-0400 Promise to Return [facility] 09-12-2023 10:00-0400 Body temperature 98.24 [degF] [facility] 09-12-2023 10:00-0400 Diastolic blood pressure 70 mm[Hg] [facility] 09-12-2023 10:00-0400 Heart rate 59 /min [facility] 09-12-2023 10:00-0400 SaO2% (BldA) [Mass fraction] 95 % [facility] 09-12-2023 10:00-0400 Systolic blood pressure 130 mm[Hg] [facility] 09-12-2023 08:00-0400 Body temperature 97.88 [degF] [facility] 08[facility]00 Heart rate 52 /min [facility] 09-12-2023 08:00-0400 Systolic blood pressure 126 mm[Hg] [facility] 09-11-2023 19:49-0400 Heart rate 59 /min [facility] 09-11-2023 19:49-0400 SaO2% (BldA) [Mass fraction] 94 % [facility] 09-11-2023 19:45-0400 Body temperature 97.88 [degF] [facility] 09-11-2023 19:44-0400 Diastolic blood pressure 78 mm[Hg] [facility] 09-11-2023 19:44-0400 Mean blood pressure 93 mm[Hg] [facility] 09-11-2023 19:44-0400 Systolic blood pressure 123 mm[Hg] [facility] 09-11-2023 19:00-0400 Blood Pressure Location [facility] 09-11-2023 19:00-0400 Respiratory rate 16 /min [facility] 09-11-2023 17:00-0400 Respiratory rate 17 /min [facility] 09-11-2023 15:59-0400 Body temperature 97.34 [degF] [facility] 09-11-2023 15:59-0400 Mean blood pressure 92 mm[Hg] [facility] 09-11-2023 11:35-0400 Mean blood pressure 96 mm[Hg] [facility] 09-11-2023 07:00-0400 Body temperature 97.7 [degF] [facility] 09-11-2023 07:00-0400 Mean blood pressure 89 mm[Hg] [facility] 09-11-2023 01:13-0400 Mean blood pressure 89 mm[Hg] [facility] 09-09-2023 01:20-0400 Heart rate 66 /min [facility] 09-08-2023 22:00-0400 Heart rate 85 /min [facility] 09-08-2023 15:05-0400 [facility] rate 75 /[facility] 22:34-0400 Respiratory rate 18 /min [facility] 09-07-2023 22:00-0400 Respiratory rate 20 /min [facility] 09-06-2023 18:38-0400 Body temperature 98.5 [degF] CRANE MECHANIC Bebe Saffle Work Phone: [facility] 09-06-2023 18:38-0400 Diastolic blood pressure 74 mm[Hg] CRANE MECHANIC Bebe Saffle Work Phone: [facility] 09-06-2023 18:38-0400 Heart rate 70 /min CR[employer] MECH[employer]IC Bebe Saffle Work Phone: [facility] 09-06-2023 18:38-0400 Respiratory rate 18 /min CRANE MECHANIC Bebe Saffle Work Phone: [facility] 09-06-2023 18:38-0400 SaO2% (BldA) [Mass fraction] 94 % CRANE MECHANIC Bebe Saffle Work Phone: [facility] 09-06-2023 18:38-0400 Systolic blood pressure 155 mm[Hg] CRANE MECHANIC Bebe Saffle Work Phone: [facility] 09-06-2023 14:02-0400 Body height 157.48 cm CRANE MECHANIC Bebe Saffle Work Phone: [facility] 09-06-2023 14:02-0400 Body weight 61.8 kg CRANE MECHANIC Bebe Saffle Work Phone: [facility] 09-02-2023 07:30-0400 Body temperature 97.3 [degF] CRANE MECHANIC Bebe Saffle Work Phone: [facility] 09-02-2023 07:30-0400 Diastolic blood pressure 73 mm[Hg] CRANE MECHANIC Bebe Saffle Work Phone: [facility] 09-02-2023 07:30-0400 Heart rate 77 /min CRANE MECHANIC Bebe Saffle Work Phone: [facility] 09-02-2023 07:30-0400 Respiratory rate 16 /min CRANE MECHANIC Bebe Saffle Work Phone: [facility] 09-02-2023 07:30-0400 SaO2% (BldA) [Mass fraction] 94 % CRANE MECHANIC Bebe Saffle Work Phone: [facility] 09-02-2023 07:30-0400 Systolic blood pressure 147 mm[Hg] CRANE MECHANIC Bebe Saffle Work Phone: [facility] 09-01-2023 09:00-0400 Body weight 59 kg CRANE MECHANIC Bebe Saffle Work Phone: [facility] 08-28-2023 14:35-0400 Body height 157.48 cm CRANE MECHANIC Bebe Saffle Work Phone: [facility] 08-27-2023 09:31-0400 Diastolic blood pressure 71 mm[Hg] Johny Willson [facility] 08-27-2023 09:31-0400 Heart rate 71 /min Johny Willson [facility] 08-27-2023 09:31-0400 Mean blood pressure 92 mm[Hg] Johny Willson [facility] 08-27-2023 09:31-0400 Respiratory rate 18 /min Johny Demetris [facility] 08-27-2023 09:31-0400 SaO2% (BldA) [Mass fraction] 95 % Johny Willson [facility] 08-27-2023 09:31-0400 Systolic blood pressure 133 mm[Hg] Johny Willson [facility] 08-27-2023 08:04-0400 Body temperature 97.88 [degF] Johny Willson [facility] 08-27-2023 08:04-0400 Diastolic blood pressure 67 mm[Hg] Johny Willson [facility] 08-27-2023 08:04-0400 Heart rate 70 /min Johny Willson [facility] 08-27-2023 08:04-0400 Respiratory rate 18 /min Johny Willson [facility] 08-27-2023 08:04-0400 SaO2% (BldA) [Mass fraction] 97 % Johny Willson [facility] 08-27-2023 08:04-0400 Systolic blood pressure 128 mm[Hg] Johny Willson [facility] 08-22-2023 14:54-0400 Diastolic blood pressure 60 mm[Hg] CRANE MECHANIC Bebe Saffle Work Phone: [facility] 08-22-2023 14:54-0400 Heart rate 60 /min CRANE MECHANIC Bebe Saffle Work Phone: [facility] 08-22-2023 14:54-0400 Respiratory rate 18 /min CRANE MECHANIC Bebe Saffle Work Phone: [facility] 08-22-2023 14:54-0400 SaO2% (BldA) [Mass fraction] 95 % CRANE MECHANIC Bebe Saffle Work Phone: [facility] 08-22-2023 14:54-0400 Systolic blood pressure 128 mm[Hg] CRANE MECHANIC Bebe Saffle Work Phone: [facility] 08-22-2023 11:57-0400 Body height 157.48 cm CRANE MECHANIC Bebe Saffle Work Phone: [facility] 08-22-2023 11:57-0400 Body weight 58.96 kg SVITLANA Mccabee Work Phone: [facility] 08-22-2023 11:54-0400 Body temperature 97.7 [degF] SVITLANA Ortiz Work Phone: [facility] 08-21-2023 15:08-0400 Body temperature 98.24 [degF] Johny Willson [facility] 08-21-2023 15:08-0400 Diastolic blood pressure 79 mm[Hg] Johny Demetris [facility] 08-21-2023 15:08-0400 Heart rate 73 /min Johny Demetris [facility] 08-21-2023 15:08-0400 Respiratory rate 18 /min Johny Demetris [facility] 08-21-2023 15:08-0400 SaO2% (BldA) [Mass fraction] 96 % Johny Demetris [facility] 08-21-2023 15:08-0400 Systolic blood pressure 123 mm[Hg] Johny Demetris [facility] 08-14-2023 11:10-0400 Diastolic blood pressure 80 mm[Hg] Johny Demetris [facility] 08-14-2023 11:10-0400 Heart rate 60 /min Johny Demetris [facility] 08-14-2023 11:10-0400 Mean blood pressure 91 mm[Hg] Johny Demetris [facility] 08-14-2023 11:10-0400 Respiratory rate 18 /min Johny Demetris [facility] 08-14-2023 11:10-0400 SaO2% (BldA) [Mass fraction] 95 % Johny Demetris [facility] 08-14-2023 11:10-0400 Systolic blood pressure 112 mm[Hg] Johny Willson [facility] 08-14-2023 10:28-0400 Diastolic blood pressure 78 mm[Hg] Johny Willson [facility] 08-14-2023 10:28-0400 Heart rate 56 /min Johny Demetris [facility] 08-14-2023 10:28-0400 Mean blood pressure 95 mm[Hg] Johny Willson [facility] 08-14-2023 10:28-0400 Respiratory rate 18 /min Johny Demetris [facility] 08-14-2023 10:28-0400 SaO2% (BldA) [Mass fraction] 95 % Johny Demetris [facility] 08-14-2023 10:28-0400 Systolic blood pressure 129 mm[Hg] Johny Willson [facility] 08-14-2023 09:21-0400 Body temperature 98.24 [degF] Johny Willson [facility] 08-14-2023 09:21-0400 Diastolic blood pressure 86 mm[Hg] Johny Demetris [facility] 08-14-2023 09:21-0400 Heart rate 62 /min Johny Demetris [facility] 08-14-2023 09:21-0400 Respiratory rate 18 /min Johny Demetris [facility] 08-14-2023 09:21-0400 SaO2% (BldA) [Mass fraction] 95 % Johny Demetris [facility] 08-14-2023 09:21-0400 Systolic blood pressure 125 mm[Hg] Johny Demetris [facility] 08-13-2023 19:42-0400 Body temperature 98.06 [degF] Kaylinn Dokken [facility] 08-13-2023 19:42-0400 Diastolic blood pressure 81 mm[Hg] Kaylinn Dokken [facility] 08-13-2023 19:42-0400 Heart rate 78 /min Kaylinn Dokken [facility] 08-13-2023 19:42-0400 Respiratory rate 18 /min Kaylinn Dokken [facility] 08-13-2023 19:42-0400 SaO2% (BldA) [Mass fraction] 94 % Kaylinn Dokken [facility] 08-13-2023 19:42-0400 Systolic blood pressure 128 mm[Hg] Kaylinn Dokken [facility] 08-12-2023 20:00-0400 Diastolic blood pressure 71 mm[Hg] Kaylinn Dokken [facility] 08-12-2023 20:00-0400 Heart rate 65 /min Kaylinn Dokken [facility] 08-12-2023 20:00-0400 Mean blood pressure 92 mm[Hg] Kaylinn Dokken [facility] 08-12-2023 20:00-0400 SaO2% (BldA) [Mass fraction] 95 % Kaylinn Dokken [facility] 08-12-2023 20:00-0400 Systolic blood pressure 135 mm[Hg] Kaylinn Dokken [facility] 08-12-2023 19:30-0400 Diastolic blood pressure 74 mm[Hg] Kaylinn Dokken [facility] 08-12-2023 19:30-0400 Heart rate 68 /min Kaylinn Dokken [facility] 08-12-2023 19:30-0400 Mean blood pressure 93 mm[Hg] Kaylinn Dokken [facility] 08-12-2023 19:30-0400 Respiratory rate 16 /min Kaylinn Dokken [facility] 08-12-2023 19:30-0400 SaO2% (BldA) [Mass fraction] 92 % Kaylinn Dokken [facility] 08-12-2023 19:30-0400 Systolic blood pressure 130 mm[Hg] Kaylinn Dokken [facility] 08-12-2023 18:09-0400 Body temperature 98.06 [degF] Kaylinn Dokken [facility] 08-12-2023 18:09-0400 Diastolic blood pressure 69 mm[Hg] Kaylinn Dokken [facility] 08-12-2023 18:09-0400 Heart rate 63 /min Kaylinn Dokken [facility] 08-12-2023 18:09-0400 Respiratory rate 18 /min Kaylinn Dokken [facility] 08-12-2023 18:09-0400 SaO2% (BldA) [Mass fraction] 91 % Kaylinn Dokken [facility] 08-12-2023 18:09-0400 Systolic blood pressure 125 mm[Hg] Mati Taylor [facility] 08-10-2023 00:45-0400 Diastolic blood pressure 68 mm[Hg] Santiago Len [facility] 08-10-2023 00:45-0400 Heart rate 71 /min Santiago Len [facility] 08-10-2023 00:45-0400 Respiratory rate 20 /min Santiago Len [facility] 08-10-2023 00:45-0400 SaO2% (BldA) [Mass fraction] 93 % Santiago Lne [facility] 08-10-2023 00:45-0400 Systolic blood pressure 133 mm[Hg] Santiago Len [facility] 08-09-2023 23:17-0400 Body temperature 97.88 [degF] Santiago Len [facility] 08-09-2023 23:17-0400 Diastolic blood pressure 60 mm[Hg] Santiago Len [facility] 08-09-2023 23:17-0400 Heart rate 71 /min Santiago Len [facility] 08-09-2023 23:17-0400 Respiratory rate 20 /min Santiago Len [facility] 08-09-2023 23:17-0400 SaO2% (BldA) [Mass fraction] 93 % Santiago Len [facility] 08-09-2023 23:17-0400 Systolic blood pressure 120 mm[Hg] Santiago Len [facility] 08-07-2023 17:00-0400 Diastolic blood pressure 61 mm[Hg] [facility] 08-07-2023 17:00-0400 Heart rate 67 /min [facility] 08-07-2023 17:00-0400 Mean blood pressure 83 mm[Hg] [facility] 08-07-2023 17:00-0400 SaO2% (BldA) [Mass fraction] 93 % [facility] 08-07-2023 17:00-0400 Systolic blood pressure 126 mm[Hg] [facility] 08-07-2023 16:30-0400 Diastolic blood pressure 55 mm[Hg] [facility] 08-07-2023 16:30-0400 Mean blood pressure 74 mm[Hg] [facility] 08-07-2023 16:30-0400 Respiratory rate 18 /min [facility] 08-07-2023 16:30-0400 Systolic blood pressure 113 mm[Hg] [facility] 08-07-2023 16:00-0400 Diastolic blood pressure 50 mm[Hg] [facility] 08-07-2023 16:00-0400 Mean blood pressure 68 mm[Hg] [facility] 08-07-2023 16:00-0400 Systolic blood pressure 105 mm[Hg] [facility] 08-07-2023 15:30-0400 Heart rate 74 /min [facility] 08-07-2023 15:30-0400 SaO2% (BldA) [Mass fraction] 92 % [facility] 08-07-2023 15:18-0400 Body temperature 98.06 [degF] [facility] 08-07-2023 15:18-0400 Heart rate 77 /min 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 Bebe Saffle Work Phone: [facility] 07-05-2023 17:30-0500 Heart rate 71 /min CR[employer] MECH[employer] Bebe Saffle Work Phone: [facility] 07-05-2023 17:30-0500 Respiratory rate 16 /min CR[employer] MECHAN[employer] Bebe Saffle Work Phone: [facility] 07-05-2023 17:30-0500 SaO2% (BldA) [Mass fraction] 95 % [employer]CH[employer] Bebe Saffle Work Phone: [facility] 07-05-2023 17:30-0500 Systolic blood pressure 138 mm[Hg] CRANE MECHANIC Bebe Saffle Work Phone: [facility] 07-05-2023 15:44-0500 Body height 157.48 cm CRANE MECHANIC Bebe Saffle Work Phone: [facility] 07-05-2023 15:44-0500 Body temperature 97.8 [degF] CRANE MECHANIC Bebe Saffle Work Phone: [facility] 07-05-2023 15:44-0500 Body weight 59.87 kg CRANE MECHANIC Bebe Saffle Work Phone: [facility] 05-26-2023 18:53-0500 Body temperature 98.24 [degF] Carlos Jaxon [facility] 05-26-2023 18:53-0500 Diastolic blood pressure 79 mm[Hg] Carlos Jaxon [facility] 05-26-2023 18:53-0500 Heart rate 99 /min Carlos Jaxon [facility] 05-26-2023 18:53-0500 Respiratory rate 18 /min Carlos Jaxon [facility] 05-26-2023 18:53-0500 SaO2% (BldA) [Mass fraction] 93 % Carlos Coates [facility] 05-26-2023 18:53-0500 Systolic blood pressure 143 mm[Hg] Carlos Coates [facility] 02-01-2023 23:48-0400 Nursing Progress Note Reason Other: pt left via [facility]. Johnybhavani Willson [facility] 02-01-2023 23:13-0400 Diastolic blood pressure 70 mm[Hg] Johny Willson [facility] 02-01-2023 23:13-0400 Heart rate 73 /min Johny Willson [facility] 02-01-2023 23:13-0400 Mean blood pressure 93 mm[Hg] Johny Willson [facility] 02-01-2023 23:13-0400 Nursing Progress Note Reason Other: pt aware she is being transferred to [facility]. up to bathroom Johnybhavani Willson [facility] 02-01-2023 23:13-0400 SaO2% (BldA) [Mass fraction] 93 % Johny Willson [facility] 02-01-2023 23:13-0400 Systolic blood pressure 139 mm[Hg] Johny Willson [facility] 02-01-2023 23:12-0400 Diastolic blood pressure 70 mm[Hg] Johny Willson [facility] 02-01-2023 23:12-0400 Heart rate 71 /min Johny Willson [facility] 02-01-2023 23:12-0400 Respiratory rate 16 /min Johny Willson [facility] 02-01-2023 23:12-0400 SaO2% (BldA) [Mass fraction] 93 % Johny Willson [facility] 02-01-2023 23:12-0400 Systolic blood pressure 139 mm[Hg] Johny Demetris [facility] 02-01-2023 23:06-0400 Nursing Progress Note Reason Other: report called to [facility]. pt resting in bed Johnybhavani Willson [facility] 02-01-2023 19:43-0400 Diastolic blood pressure 85 mm[Hg] Johny Willson [facility] 02-01-2023 19:43-0400 Heart rate 68 /min Johny Willson [facility] 02-01-2023 19:43-0400 Mean blood pressure 95 mm[Hg] Johny Willson [facility] 02-01-2023 19:43-0400 SaO2% (BldA) [Mass fraction] 94 % Johny Demetris [facility] 02-01-2023 19:43-0400 Systolic blood pressure 115 mm[Hg] Johny Demetris [facility] 02-01-2023 19:27-0400 Heart rate 71 /min Johny Demetris [facility] 02-01-2023 19:27-0400 Respiratory rate 16 /min Johny Demetris [facility] 02-01-2023 15:08-0400 Body temperature 98.42 [degF] Johny Demetris [facility] 02-01-2023 15:08-0400 Heart rate 70 /min Johny Demetris [facility] 02-01-2023 15:08-0400 Respiratory rate 16 /min Johny Willson [facility] 01-30-2023 13:21-0400 Body weight 51.71 kg Nurse Namrata Work Phone: [facility] 01-30-2023 13:21-0400 Diastolic blood pressure 78 mm[Hg] Nurse Namrata Work Phone: [facility] 01-30-2023 13:21-0400 Heart rate 77 /min Nurse Namrata Work Phone: [facility] 01-30-2023 13:21-0400 Systolic blood pressure 128 mm[Hg] Nurse Namrata Work Phone: [facility] 01-29-2023 14:30-0400 Diastolic blood pressure 55 mm[Hg] Frantz Magdy CRANE MECHANIC.DIRECTOR EMERGENCY Work Phone: [facility] 01-29-2023 14:30-0400 Heart rate 63 /min Frantz Magdy [employer]ANE MECHANIC.DIRECTOR EMERGENCY Work Phone: [facility] 01-29-2023 14:30-0400 Systolic blood pressure 132 mm[Hg] Frantz Magdy CRANE MECHANIC.DIRECTOR EMERGENCY Work Phone: [facility] 01-06-2023 17:51-0400 Body temperature 98.24 [degF] Chandan Adhikari [facility] 01-06-2023 17:51-0400 Diastolic blood pressure 68 mm[Hg] Chandan Adhikari [facility] 01-06-2023 17:51-0400 Heart rate 82 /min Chandan Adhikari [facility] 01-06-2023 17:51-0400 Respiratory rate 16 /min Chandan Adhikari [facility] 01-06-2023 17:51-0400 SaO2% (BldA) [Mass fraction] 97 % Chandan Adhikari [facility] 01-06-2023 17:51-0400 Systolic blood pressure 104 mm[Hg] Chandan Adhikari [facility] 01-04-2023 15:01-0400 Diastolic blood pressure 52 mm[Hg] Chandan Adhikari [facility] 01-04-2023 15:01-0400 Heart rate 57 /min Chandan Adhikari [facility] 01-04-2023 15:01-0400 Mean blood pressure 72 mm[Hg] Chandan Adhikari [facility] 01-04-2023 15:01-0400 Respiratory rate 17 /min Chandan Adhikari [facility] 01-04-2023 15:01-0400 SaO2% (BldA) [Mass fraction] 96 % Chandan Adhikari [facility] 01-04-2023 15:01-0400 Systolic blood pressure 112 mm[Hg] Chandan Adhikari [facility] 12-29-2022 14:01-0400 Diastolic blood pressure 65 mm[Hg] Carlos Coates [facility] 12-29-2022 14:01-0400 Heart rate 58 /min Carlos Jaxon [facility] 12-29-2022 14:01-0400 Mean blood pressure 83 mm[Hg] Carlos Jaxon [facility] 12-29-2022 14:01-0400 Respiratory rate 18 /min Carlos Jaxon [facility] 12-29-2022 14:01-0400 SaO2% (BldA) [Mass fraction] 94 % Carlos Jaxon [facility] 12-29-2022 14:01-0400 Systolic blood pressure 120 mm[Hg] Carlos Jaxon [facility] 12-29-2022 12:36-0400 Body temperature 99.14 [degF] Carlos Coates [facility] 12-29-2022 12:36-0400 Diastolic blood pressure 65 mm[Hg] Carlos Coates [facility] 12-29-2022 12:36-0400 Heart rate 61 /min Carlos Coates [facility] 12-29-2022 12:36-0400 Respiratory rate 16 /min Carlos Coates [facility] 12-29-2022 12:36-0400 SaO2% (BldA) [Mass fraction] 94 % Carlos Coates [facility] 12-29-2022 12:36-0400 Systolic blood pressure 125 mm[Hg] Carlos Coates [facility] 12-23-2022 15:00-0400 SaO2% (BldA) [Mass fraction] 96 % [facility] 12-23-2022 14:30-0400 Diastolic blood pressure 60 mm[Hg] [facility] 12-23-2022 14:30-0400 Heart rate 62 /min [facility] 12-23-2022 14:30-0400 Mean blood pressure 82 mm[Hg] [facility] 12-23-2022 14:30-0400 Respiratory rate 20 /min [facility] 12-23-2022 14:30-0400 SaO2% (BldA) [Mass fraction] 95 % [facility] 12-23-2022 14:30-0400 Systolic blood pressure 125 mm[Hg] [facility] 12-23-2022 13:31-0400 Body temperature 98.42 [degF] [facility] 12-23-2022 13:31-0400 Diastolic blood pressure 67 mm[Hg] [facility] 12-23-2022 13:31-0400 Heart rate 72 /min [facility] 12-23-2022 13:31-0400 Respiratory rate 20 /min [facility] 12-23-2022 13:31-0400 SaO2% (BldA) [Mass fraction] 93 % [facility] 12-23-2022 13:31-0400 Systolic blood pressure 129 mm[Hg] [facility] 12-23-2022 13:13-0400 Body temperature 98.42 [degF] [facility] 12-23-2022 13:13-0400 Diastolic blood pressure 71 mm[Hg] [facility] 12-23-2022 13:13-0400 Heart rate 78 /min [facility] 12-23-2022 13:13-0400 Respiratory rate 19 /min [facility] 12-23-2022 13:13-0400 Systolic blood pressure 127 mm[Hg] [facility] 06-11-2022 12:30-0500 Body height 157.48 cm Clark Hernandez Other [facility] [employer] Other 06-11-2022 12:30-0500 Diastolic blood pressure 70 mm[Hg] Clark Hernandez Other [employer] [facility] [employer] Other 06-11-2022 12:30-0500 SaO2% (BldA) [Mass fraction] 95 % Clark Hernandez Other [employer] Other 06-11-2022 12:30-0500 Systolic blood pressure 110 mm[Hg] Clark Hernandez Other [employer] [facility] [employer] Other 06-11-2022 07:30-0500 Body temperature 98 [degF] DO Tomas Farrell Work Phone: [facility] 06-11-2022 07:30-0500 Diastolic blood pressure 66 mm[Hg] DO Tomas Farrell Work Phone: [facility] 06-11-2022 07:30-0500 Heart rate 89 /min DO Tomas Farrell Work Phone: [facility] 06-11-2022 07:30-0500 Respiratory rate 18 /min DO Tomas Farrell Work Phone: [facility] 06-11-2022 07:30-0500 SaO2% (BldA) [Mass fraction] 94 % DO Tomas Farrell Work Phone: [facility] 06-11-2022 07:30-0500 Systolic blood pressure 101 mm[Hg] DO Tomas Farrell Work Phone: [facility] 06-10-2022 18:17-0500 Body height 154.94 cm DO Tomas Farrell Work Phone: [facility] 06-10-2022 09:00-0500 Body weight 55 kg DO Tomas Farrell Work Phone: [facility] 05-25-2022 16:00-0500 Diastolic blood pressure 91 mm[Hg] Santiago Len [facility] 05-25-2022 16:00-0500 Heart rate 79 /min Santiago Len [facility] 05-25-2022 16:00-0500 Mean blood pressure 106 mm[Hg] Santiago Len [facility] 05-25-2022 16:00-0500 SaO2% (BldA) [Mass fraction] 97 % Santiago Len [facility] 05-25-2022 16:00-0500 Systolic blood pressure 137 mm[Hg] Santiago Len [facility] 05-25-2022 15:30-0500 Diastolic blood pressure 78 mm[Hg] Santiago Len [facility] 05-25-2022 15:30-0500 Heart rate 88 /min Santiago Len [facility] 05-25-2022 15:30-0500 Mean blood pressure 101 mm[Hg] Santiago Len [facility] 05-25-2022 15:30-0500 Respiratory rate 21 /min Santiago Len [facility] 05-25-2022 15:30-0500 SaO2% (BldA) [Mass fraction] 95 % Santiago Len [facility] 05-25-2022 15:30-0500 Systolic blood pressure 146 mm[Hg] Santiago Len [facility] 05-25-2022 14:31-0500 Diastolic blood pressure 83 mm[Hg] Santiago Len [facility] 05-25-2022 14:31-0500 Heart rate 95 /min Santiago Len [facility] 05-25-2022 14:31-0500 Mean blood pressure 107 mm[Hg] Santiago Len [facility] 05-25-2022 14:31-0500 Respiratory rate 19 /min Santiago Len [facility] 05-25-2022 14:31-0500 SaO2% (BldA) [Mass fraction] 94 % Santiago Len [facility] 05-25-2022 14:31-0500 Systolic blood pressure 156 mm[Hg] Santiago Len [facility] 05-25-2022 14:01-0500 Heart rate 104 /min Santiago Len [facility] 05-25-2022 13:00-0500 Heart rate 110 /min Santiago Len [facility] 05-25-2022 11:00-0500 Heart rate 87 /min Santiago Len [facility] 05-25-2022 07:00-0500 Body temperature 98.24 [degF] Santiago Len [facility] 05-25-2022 05:00-0500 Body temperature 98.6 [degF] [facility] 05-24-2022 22:00-0500 gluc 91 mg/dL [facility] 05-24-2022 22:00-0500 gluc [facility] 05-03-2022 11:50-0500 Body temperature 97.88 [degF] Chandan Adhikari [facility] 05-03-2022 11:50-0500 Diastolic blood pressure 67 mm[Hg] Chandan Munoze [facility] 05-03-2022 11:50-0500 Heart rate 100 /min Chandan Munoze [facility] 05-03-2022 11:50-0500 Respiratory rate 16 /min Chandan Munoze [facility] 05-03-2022 11:50-0500 SaO2% (BldA) [Mass fraction] 95 % Chandan Onofre [facility] 05-03-2022 11:50-0500 Systolic blood pressure 124 mm[Hg] Chandan Onofre [facility] 05-02-2022 21:43-0500 Body temperature 97.52 [degF] Speedyylinn Dokken [facility] 05-02-2022 21:43-0500 Diastolic blood pressure 81 mm[Hg] Speedyylinn Dokken [facility] 05-02-2022 21:43-0500 Heart rate 85 /min Julio Cinn Dokken [facility] 05-02-2022 21:43-0500 Respiratory rate 20 /min Chelon Dokken [facility] 05-02-2022 21:43-0500 SaO2% (BldA) [Mass fraction] 100 % Chelon Dokken [facility] 05-02-2022 21:43-0500 Systolic blood pressure 125 mm[Hg] Julio Cinn Dokken [facility] 04-25-2022 14:04-0500 Blood Pressure Location Tomas FARRELL [facility] 04-25-2022 14:04-0500 Body temperature 98.06 [degF] Tomas FARRELL [facility] 04-25-2022 14:04-0500 Diastolic blood pressure 60 mm[Hg] Tomas FARRELL [facility] 04-25-2022 14:04-0500 Heart rate 58 /min Tomas FARRELL [facility] 04-25-2022 14:04-0500 SaO2% (BldA) [Mass fraction] 95 % Tomas FARRELL [facility] 04-25-2022 14:04-0500 Systolic blood pressure 126 mm[Hg] Tomas FARRELL [facility] [place] 04-19-2022 12:09-0500 Diastolic blood pressure 67 mm[Hg] Hasan AMIR [facility] 04-19-2022 12:09-0500 Heart rate 61 /min Hasan AMIR [facility] 04-19-2022 12:09-0500 Mean blood pressure 85 mm[Hg] Hasan AMIR [facility] 04-19-2022 12:09-0500 SaO2% (BldA) [Mass fraction] 93 % Hasan AMIR [facility] 04-19-2022 12:09-0500 Systolic blood pressure 122 mm[Hg] Hasan AMIR [facility] 04-19-2022 12:00-0500 Body temperature 96.26 [degF] Hasan AMIR [facility] 04-19-2022 12:00-0500 Hourly Rounding Hasan AMIR [facility] 04-19-2022 11:00-0500 Hourly Rounding Hasan AMIR [facility] 04-19-2022 10:00-0500 Hourly Rounding Hasan AMIR [facility] 04-19-2022 08:48-0500 Blood Pressure Location Hasan AMIR [facility] 04-19-2022 08:48-0500 Body temperature 98.06 [degF] Hasan AMIR [facility] 04-19-2022 08:48-0500 BP/Pulse Patient Position Hasan AMIR [facility] 04-19-2022 08:48-0500 Diastolic blood pressure 60 mm[Hg] Hasan AMIR [facility] 04-19-2022 08:48-0500 Heart rate 60 /min Hasan AMIR [facility] 04-19-2022 08:48-0500 Mean blood pressure 75 mm[Hg] Hasan AMIR [facility] 04-19-2022 08:48-0500 Respiratory rate 18 /min Hasan AMIR [facility] 04-19-2022 08:48-0500 SaO2% (BldA) [Mass fraction] 92 % Hasan AMIR [facility] 04-19-2022 08:48-0500 Systolic blood pressure 105 mm[Hg] Hasan AMIR [facility] 04-18-2022 23:50-0500 Body temperature 97.52 [degF] Hasan AMIR [facility] 04-18-2022 23:50-0500 Diastolic blood pressure 57 mm[Hg] Hasan AMIR [facility] 04-18-2022 23:50-0500 Heart rate 54 /min Hasan AMIR [facility] 04-18-2022 23:50-0500 Mean blood pressure 70 mm[Hg] Hasan AMIR [facility] 04-18-2022 23:50-0500 SaO2% (BldA) [Mass fraction] 92 % Hasan AMIR [facility] 04-18-2022 23:50-0500 Systolic blood pressure 96 mm[Hg] Hasan AMIR [facility] 04-18-2022 23:50-0500 Respiratory rate 17 /min Hasan AMIR [facility] 04-18-2022 23:00-0500 Blood Pressure Location Hasan AMIR [facility] 04-18-2022 23:00-0500 Promise to Return Hasan AMIR [facility] 04-18-2022 22:12-0500 Promise to Return Hasan AMIR [facility] 04-18-2022 21:00-0500 Promise to Return Hasan AMIR [facility] 04-18-2022 19:00-0500 Mean blood pressure 71 mm[Hg] Hasan AMIR [facility] 04-18-2022 19:00-0500 Respiratory rate 14 /min Hasan AMIR [facility] 04-18-2022 15:55-0500 BP/Pulse Patient Position Hasan AMIR [facility] 04-18-2022 15:55-0500 Mean blood pressure 72 mm[Hg] [facility] AM[facility] 04-18-2022 00:00-0500 Respiratory rate 16 /min Hasan AMIR [facility] 04-17-2022 16:15-0500 Heart rate 58 /min [facility]an [facility] 04-17-2022 15:17-0500 Mean blood pressure 77 mm[Hg] [facility] 04-17-2022 10:18-0500 Heart rate 56 /min Hasan AMIR [facility] 03-04-2022 13:17-0400 Blood Pressure Location Tatum Liang [facility] 03-04-2022 13:17-0400 Body temperature 98.06 [degF] Tatum Liang [facility] 03-04-2022 13:17-0400 Diastolic blood pressure 66 mm[Hg] Tatum Liang [facility] 03-04-2022 13:17-0400 Heart rate 72 /min Tatum FestusBetBoxchris [facility] 03-04-2022 13:17-0400 SaO2% (BldA) [Mass fraction] 94 % Tatum FestusBetBoxchris [facility] 03-04-2022 13:17-0400 Systolic blood pressure 122 mm[Hg] Roberts FestusBetBoxchris [facility] 02-17-2022 21:30-0400 Diastolic blood pressure 76 mm[Hg] [facility] 02-17-2022 21:30-0400 Heart rate 68 /min [facility] 02-17-2022 21:30-0400 Respiratory rate 18 /min [facility] 02-17-2022 21:30-0400 SaO2% (BldA) [Mass fraction] 95 % [facility] 02-17-2022 21:30-0400 Systolic blood pressure 148 mm[Hg] [facility] 02-17-2022 19:30-0400 Diastolic blood pressure 78 mm[Hg] [facility] 02-17-2022 19:30-0400 Heart rate 69 /min [facility] 02-17-2022 19:30-0400 Hourly Rounding [facility] 02-17-2022 19:30-0400 Nursing Progress Note Reason Other: Pt aware of POC. Resting on cart. [facility] 02-17-2022 19:30-0400 Respiratory rate 18 /min [facility] 02-17-2022 19:30-0400 SaO2% (BldA) [Mass fraction] 94 % [facility] 02-17-2022 19:30-0400 Systolic blood pressure 157 mm[Hg] [facility] 02-17-2022 16:02-0400 Body temperature 98.6 [degF] [facility] 02-17-2022 16:02-0400 Diastolic blood pressure 83 mm[Hg] [facility] 02-17-2022 16:02-0400 Heart rate 77 /min [facility] 02-17-2022 16:02-0400 Respiratory rate 18 /min [facility] 02-17-2022 16:02-0400 SaO2% (BldA) [Mass fraction] 94 % [facility] 02-17-2022 16:02-0400 Systolic blood pressure 158 mm[Hg] [facility] 02-15-2022 15:01-0400 Body temperature 98.24 [degF] Johny Willson [facility] 02-15-2022 15:01-0400 Diastolic blood pressure 83 mm[Hg] Johny Willson [facility] 02-15-2022 15:01-0400 Heart rate 78 /min Johny Willson [facility] 02-15-2022 15:01-0400 Respiratory rate 18 /min Johny Willson [facility] 02-15-2022 15:01-0400 SaO2% (BldA) [Mass fraction] 94 % Johny Willson [facility] 02-15-2022 15:01-0400 Systolic blood pressure 121 mm[Hg] Johny Demetris [facility] 02-13-2022 12:20-0400 Diastolic blood pressure 61 mm[Hg] Johny Demetris [facility] 02-13-2022 12:20-0400 Heart rate 62 /min Johny Demetris [facility] 02-13-2022 12:20-0400 Mean blood pressure 82 mm[Hg] Johny Demetris [facility] 02-13-2022 12:20-0400 Respiratory rate 21 /min Johny Demetris [facility] 02-13-2022 12:20-0400 SaO2% (BldA) [Mass fraction] 96 % Johny Demetris [facility] 02-13-2022 12:20-0400 Systolic blood pressure 123 mm[Hg] Johny Demetris [facility] 02-13-2022 11:46-0400 Body temperature 98.6 [degF] Johny Willson [facility] 02-13-2022 11:46-0400 Diastolic blood pressure 56 mm[Hg] Johny Demetris [facility] 02-13-2022 11:46-0400 Heart rate 56 /min Johny Demetris [facility] 02-13-2022 11:46-0400 Respiratory rate 20 /min Johny Demetris [facility] 02-13-2022 11:46-0400 SaO2% (BldA) [Mass fraction] 96 % Johny Willson [facility] 02-13-2022 11:46-0400 Systolic blood pressure 127 mm[Hg] Johny Willson [facility] 02-07-2022 13:57-0400 Diastolic blood pressure 75 mm[Hg] Quynh Hernandez MD Work Phone: [facility] 02-07-2022 13:57-0400 Heart rate 76 /min Quynh Hernandez MD Work Phone: [facility] 02-07-2022 13:57-0400 Systolic blood pressure 118 mm[Hg] Quynh Hernandez MD Work Phone: [facility] 02-07-2022 13:06-0400 Body weight 51.71 kg Quynh Hernandez MD Work Phone: [facility] 02-05-2022 11:44-0400 Hourly Rounding [facility] 02-05-2022 11:44-0400 Promise to Return [facility] 02-05-2022 10:18-0400 Hourly Rounding [facility] 02-05-2022 10:18-0400 Promise to Return [facility] 02-05-2022 09:15-0400 Hourly Rounding [facility] 02-05-2022 09:15-0400 Promise to Return [facility] 02-05-2022 07:18-0400 Blood Pressure Location [facility] 02-05-2022 07:18-0400 BP/Pulse Patient Position [facility] 02-05-2022 07:18-0400 Diastolic blood pressure 66 mm[Hg] [facility] 02-05-2022 07:18-0400 Heart rate 58 /min [facility] 02-05-2022 07:18-0400 Mean blood pressure 83 mm[Hg] [facility] 02-05-2022 07:18-0400 SaO2% (BldA) [Mass fraction] 94 % [facility] 02-05-2022 07:18-0400 Systolic blood pressure 117 mm[Hg] [facility] 02-05-2022 04:00-0400 Body temperature 97.34 [degF] [facility] 02-05-2022 04:00-0400 Heart rate 70 /min [facility] 02-05-2022 04:00-0400 Mean blood pressure 82 mm[Hg] [facility] 02-05-2022 04:00-0400 Respiratory rate 16 /min [facility] 02-05-2022 04:00-0400 SaO2% (BldA) [Mass fraction] 92 % [facility] 02-05-2022 04:00-0400 Systolic blood pressure 115 mm[Hg] [facility] 02-04-2022 20:00-0400 Diastolic blood pressure 47 mm[Hg] [facility] 02-04-2022 20:00-0400 Systolic blood pressure 118 mm[Hg] [facility] 02-04-2022 19:00-0400 Blood Pressure Location [facility] 02-04-2022 19:00-0400 Body temperature 97.52 [degF] [facility] 02-04-2022 19:00-0400 BP/Pulse Patient Position [facility] 02-04-2022 19:00-0400 Heart rate 62 /min [facility] 02-04-2022 19:00-0400 SaO2% (BldA) [Mass fraction] 91 % [facility] 02-04-2022 16:30-0400 Body temperature 97.7 [degF] [facility] 02-04-2022 16:30-0400 Mean blood pressure 95 mm[Hg] [facility] 02-04-2022 16:30-0400 Respiratory rate 16 /min [facility] 02-04-2022 11:51-0400 Body temperature 96.44 [degF] [facility] 02-04-2022 11:51-0400 Mean blood pressure 91 mm[Hg] [facility] 02-04-2022 07:31-0400 Mean blood pressure 80 mm[Hg] [facility] 02-04-2022 05:45-0400 Mean blood pressure 85 mm[Hg] [facility] 02-04-2022 05:45-0400 Respiratory rate 14 /min [facility] 02-04-2022 00:40-0400 Respiratory rate 17 /min [facility] 02-03-2022 19:00-0400 Respiratory rate 16 /min [facility] 02-03-2022 16:55-0400 Heart rate 55 /min [facility] 02-03-2022 10:00-0400 Heart rate 54 /min [facility] 02-01-2022 07:55-0400 Diastolic blood pressure 74 mm[Hg] Kaylinn Dokken [facility] 02-01-2022 07:55-0400 Heart rate 58 /min Kaylinn Dokken [facility] 02-01-2022 07:55-0400 Mean blood pressure 96 mm[Hg] Kaylinn Dokken [facility] 02-01-2022 07:55-0400 Respiratory rate 20 /min Kaylinn Dokken [facility] 02-01-2022 07:55-0400 SaO2% (BldA) [Mass fraction] 96 % Kaylinn Dokken [facility] 02-01-2022 07:55-0400 Systolic blood pressure 139 mm[Hg] Kaylinn Dokken [facility] 02-01-2022 06:35-0400 Body temperature 97.7 [degF] Kaylinn Dokken [facility] 02-01-2022 06:35-0400 Diastolic blood pressure 74 mm[Hg] Kaylinn Dokken [facility] 02-01-2022 06:35-0400 Heart rate 64 /min Kaylinn Dokken [facility] 02-01-2022 06:35-0400 Respiratory rate 20 /min Kaylinn Dokken [facility] 02-01-2022 06:35-0400 SaO2% (BldA) [Mass fraction] 98 % Kaylinn Dokken [facility] 02-01-2022 06:35-0400 Systolic blood pressure 134 mm[Hg] Kaylinn Dokken [facility] 02-01-2022 06:15-0400 Body temperature 96.98 [degF] Kaylinn Dokken [facility] 02-01-2022 06:15-0400 Diastolic blood pressure 65 mm[Hg] Kaylinn Dokken [facility] 02-01-2022 06:15-0400 Heart rate 69 /min Kaylinn Dokken [facility] 02-01-2022 06:15-0400 Respiratory rate 18 /min Kaylinn Dokken [facility] 02-01-2022 06:15-0400 SaO2% (BldA) [Mass fraction] 96 % Kaylinn Dokken [facility] 02-01-2022 06:15-0400 Systolic blood pressure 160 mm[Hg] Kaylinn Dokken [facility] 01-31-2022 04:19-0400 Diastolic blood pressure 62 mm[Hg] Kaylinn Dokken [facility] 01-31-2022 04:19-0400 Heart rate 60 /min Kaylinn Dokken [facility] 01-31-2022 04:19-0400 Hourly Rounding Kaylinn Dokken [facility] 01-31-2022 04:19-0400 Respiratory rate 18 /min Kaylinn Dokken [facility] 01-31-2022 04:19-0400 SaO2% (BldA) [Mass fraction] 92 % Kaylinn Dokken [facility] 01-31-2022 04:19-0400 Systolic blood pressure 136 mm[Hg] Kaylinn Dokken [facility] 01-31-2022 03:36-0400 Body temperature 98.06 [degF] Kaylinn Dokken [facility] 01-31-2022 03:36-0400 Diastolic blood pressure 66 mm[Hg] Kaylinn Dokken [facility] 01-31-2022 03:36-0400 Heart rate 67 /min Kaylinn Dokken [facility] 01-31-2022 03:36-0400 Hourly Rounding Kaylinn Dokken [facility] 01-31-2022 03:36-0400 Respiratory rate 18 /min Kaylinn Dokken [facility] 01-31-2022 03:36-0400 SaO2% (BldA) [Mass fraction] 94 % Kaylinn Dokken [facility] 01-31-2022 03:36-0400 Systolic blood pressure 144 mm[Hg] Kaylinn Dokken [facility] 01-30-2022 20:30-0400 Diastolic blood pressure 72 mm[Hg] Kaylinn Dokken [facility] 01-30-2022 20:30-0400 Heart rate 69 /min Kaylinn Dokken [facility] 01-30-2022 20:30-0400 Respiratory rate 21 /min Kaylinn Dokken [facility] 01-30-2022 20:30-0400 SaO2% (BldA) [Mass fraction] 94 % Kaylinn Dokken [facility] 01-30-2022 20:30-0400 Systolic blood pressure 136 mm[Hg] Kaylinn Dokken [facility] 01-30-2022 19:02-0400 Body temperature 97.52 [degF] Kaylinn Dokken [facility] 01-30-2022 19:02-0400 Diastolic blood pressure 66 mm[Hg] Kaylinn Dokken [facility] 01-30-2022 19:02-0400 Heart rate 67 /min Kaylinn Dokken [facility] 01-30-2022 19:02-0400 SaO2% (BldA) [Mass fraction] 95 % Mati Taylor [facility] 01-30-2022 19:02-0400 Systolic blood pressure 138 mm[Hg] Chelon Rosemaryen [facility] 01-30-2022 19:00-0400 Hourly Rounding Mati Talyor [facility] 01-30-2022 19:00-0400 Promise to Return Mati Taylor [facility] 01-15-2022 15:40-0400 Blood Pressure Location JHONATAN SIDELL [facility] 01-15-2022 15:40-0400 Body temperature 97.52 [degF] JHONATAN SIDELL [facility] 01-15-2022 15:40-0400 Diastolic blood pressure 70 mm[Hg] JHONATAN SIDELL [facility] 01-15-2022 15:40-0400 Heart rate 70 /min JHONATAN SIDELL [facility] 01-15-2022 15:40-0400 SaO2% (BldA) [Mass fraction] 97 % JHONATAN SIDELL [facility] 01-15-2022 15:40-0400 Systolic blood pressure 116 mm[Hg] JHONATAN SIDELL [facility] 01-14-2022 16:41-0400 Body temperature 98.42 [degF] Chandan Adhikari [facility] 01-14-2022 16:41-0400 Diastolic blood pressure 80 mm[Hg] Chandan Adhikari [facility] 01-14-2022 16:41-0400 Heart rate 71 /min Chandan Adhikari [facility] 01-14-2022 16:41-0400 Respiratory rate 18 /min Chandan Adhikari [facility] 01-14-2022 16:41-0400 SaO2% (BldA) [Mass fraction] 96 % Chandan Adhikari [facility] 01-14-2022 16:41-0400 Systolic blood pressure 124 mm[Hg] Chandan Adhikari [facility] 2022 16:04-0400 Body weight 60.33 kg Frantz Curran [employer]DIRECT[employer] EMERGENCY Work Phone: [facility] 2022 16:04-0400 Diastolic blood pressure 57 mm[Hg] Frantz [place] [employer].DIRECTOR EMERGENCY Work Phone: [facility] 2022 16:04-0400 Heart rate 55 /min Frantz Magdy [employer].DIRECTOR EMERGENCY Work Phone: [facility] 2022 16:04-0400 Systolic blood pressure 107 mm[Hg] Frantz [place] [employer].DIRECTOR EMERGENCY Work Phone: [facility] 12-20-2021 13:54-0400 Body temperature 97.88 [degF] [facility] 12-20-2021 13:54-0400 Diastolic blood pressure 65 mm[Hg] [facility] 12-20-2021 13:54-0400 Heart rate 80 /min [facility] 12-20-2021 13:54-0400 Respiratory rate 18 /min [facility] 12-20-2021 13:54-0400 SaO2% (BldA) [Mass fraction] 94 % [facility] 12-20-2021 13:54-0400 Systolic blood pressure 116 mm[Hg] [facility] 12-17-2021 13:45-0400 Hourly Rounding Zeyad Zachary [facility] 12-17-2021 11:00-0400 Body temperature 98.06 [degF] Zeyad Zachary [facility] 12-17-2021 11:00-0400 Diastolic blood pressure 68 mm[Hg] Zeyad Zachary [facility] 12-17-2021 11:00-0400 Heart rate 59 /min Zeyad Zachary [facility] 12-17-2021 11:00-0400 SaO2% (BldA) [Mass fraction] 94 % Zeyad Zachary [facility] 12-17-2021 11:00-0400 Systolic blood pressure 131 mm[Hg] Zeyad Zachary [facility] 12-17-2021 08:38-0400 Diastolic blood pressure 69 mm[Hg] Zeyad Zachary [facility] 12-17-2021 08:38-0400 Systolic blood pressure 127 mm[Hg] Zeyad Zachary [facility] 12-17-2021 08:37-0400 Hourly Rounding Zeyad Zachary [facility] 12-17-2021 08:00-0400 Promise to Return Zeyad Zachary [facility] 12-17-2021 07:59-0400 Body temperature 97.88 [degF] Zeyad Zachary [facility] 12-17-2021 07:59-0400 Diastolic blood pressure 69 mm[Hg] Zeyad Zachary [facility] 12-17-2021 07:59-0400 Heart rate 65 /min Zeyad Zachary [facility] 12-17-2021 07:59-0400 Mean blood pressure 89 mm[Hg] Zeyad Zachary [facility] 12-17-2021 07:59-0400 SaO2% (BldA) [Mass fraction] 92 % Zeyad Zachary [facility] 12-17-2021 07:59-0400 Systolic blood pressure 127 mm[Hg] Zeyad Zachary [facility] 12-17-2021 07:00-0400 Hourly Rounding Zeyad Zachary [facility] 12-17-2021 07:00-0400 Promise to Return Zeyad Zachary [facility] 12-17-2021 06:42-0400 Promise to Return Zeyad Zachary [facility] 12-17-2021 00:00-0400 Body temperature 98.06 [degF] Zeyad Zachary [facility] 12-17-2021 00:00-0400 Heart rate 60 /min Zeyad Zachary [facility] 12-17-2021 00:00-0400 SaO2% (BldA) [Mass fraction] 92 % Zeyad Zachary [facility] 12-16-2021 15:20-0400 Mean blood pressure 92 mm[Hg] Zeyad Zachary [facility] 12-16-2021 10:38-0400 Blood Pressure Location Zeyad Zachary [facility] 12-16-2021 10:38-0400 Heart rate 74 /min Zeyadselene Reddyer [facility] 12-16-2021 09:30-0400 Mean blood pressure 80 mm[Hg] Zeyad Zachary [facility] 12-16-2021 09:30-0400 Respiratory rate 18 /min Zeyad Zachary [facility] 12-16-2021 07:38-0400 Heart rate 61 /min Zeyadselene Reddyer [facility] 12-16-2021 07:38-0400 Respiratory rate 16 /min Zeyadselene Reddyer [facility] 12-15-2021 18:58-0400 Diastolic blood pressure 69 mm[Hg] Carlos Jaxon [facility] 12-15-2021 18:58-0400 Heart rate 66 /min Carlos Jaxon [facility] 12-15-2021 18:58-0400 Mean blood pressure 94 mm[Hg] Carlos Jaxon [facility] 12-15-2021 18:58-0400 Respiratory rate 20 /min Carlos Jaxon [facility] 12-15-2021 18:58-0400 SaO2% (BldA) [Mass fraction] 93 % Carlos Jaxon [facility] 12-15-2021 18:58-0400 Systolic blood pressure 144 mm[Hg] Carlos Jaxon [facility] 12-15-2021 18:00-0400 Diastolic blood pressure 82 mm[Hg] Carlos Jaxon [facility] 12-15-2021 18:00-0400 Heart rate 68 /min Carlos Jaxon [facility] 12-15-2021 18:00-0400 Hourly Rounding Carlos Jaxon [facility] 12-15-2021 18:00-0400 Mean blood pressure 102 mm[Hg] Carlos Jaxon [facility] 12-15-2021 18:00-0400 Promise to Return Carlos Jaxon [facility] 12-15-2021 18:00-0400 Respiratory rate 18 /min Carlos Jaxon [facility] 12-15-2021 18:00-0400 Systolic blood pressure 142 mm[Hg] Carlos Jaxon [facility] 12-15-2021 17:00-0400 Diastolic blood pressure 72 mm[Hg] Carlos Jaxon [facility] 12-15-2021 17:00-0400 Heart rate 70 /min Carlos Jaxon [facility] 12-15-2021 17:00-0400 Mean blood pressure 97 mm[Hg] Carlos Jaxon [facility] 12-15-2021 17:00-0400 SaO2% (BldA) [Mass fraction] 92 % Carlos Jaxon [facility] 12-15-2021 17:00-0400 Systolic blood pressure 146 mm[Hg] Carlos Jaxon [facility] 12-15-2021 16:00-0400 Hourly Rounding Carlos Jaxon [facility] 12-15-2021 16:00-0400 Promise to Return Carlos Jaxon [facility] 12-15-2021 14:25-0400 Body temperature 98.42 [degF] Carlos Jaxon [facility] 12-15-2021 14:25-0400 Heart rate 74 /min Carlos Coates [facility] 12-15-2021 14:25-0400 Hourly Rounding Carlos Coates [facility] 12-15-2021 14:25-0400 Promise to Return Carlos Coates [facility] 12-15-2021 14:25-0400 Respiratory rate 16 /min Carlos Coates [facility] 12-14-2021 08:50-0400 Body temperature 97.7 [degF] Johny Willson [facility] 12-14-2021 08:50-0400 Diastolic blood pressure 71 mm[Hg] Johny Demetris [facility] 12-14-2021 08:50-0400 Heart rate 96 /min Johny [facility] 12-14-2021 08:50-0400 Respiratory rate 20 /min Johny [facility] 12-14-2021 08:50-0400 SaO2% (BldA) [Mass fraction] 94 % Johny [facility] 12-14-2021 08:50-0400 Systolic blood pressure 149 mm[Hg] Johny [facility] 12-09-2021 18:00-0400 Diastolic blood pressure 59 mm[Hg] Johny Spenser [facility] 12-09-2021 18:00-0400 Heart rate 72 /min Johny Spenser [facility] 12-09-2021 18:00-0400 Respiratory rate 18 /min Johny Spenser [facility] 12-09-2021 18:00-0400 SaO2% (BldA) [Mass fraction] 99 % Johny Jaraell [facility] 12-09-2021 18:00-0400 Systolic blood pressure 117 mm[Hg] Johny Spenser [facility] 12-09-2021 16:47-0400 Body temperature 97.88 [degF] Johny Jaraell [facility] 12-09-2021 16:47-0400 Diastolic blood pressure 72 mm[Hg] Johny Jaraell [facility] 12-09-2021 16:47-0400 Heart rate 78 /min Johny Jaraell [facility] 12-09-2021 16:47-0400 Respiratory rate 19 /min Johny Jaraell [facility] 12-09-2021 16:47-0400 SaO2% (BldA) [Mass fraction] 97 % Johny Jaraell [facility] 12-09-2021 16:47-0400 Systolic blood pressure 127 mm[Hg] Johny Spenser [facility] 12-07-2021 11:43-0400 Body weight 60.33 kg Frantz [place] [employer].DIRECTOR EMERGENCY Work Phone: [facility] 12-07-2021 11:43-0400 Diastolic blood pressure 51 mm[Hg] Frantz [place] [employer].DIRECTOR EMERGENCY Work Phone: [facility] 12-07-2021 11:43-0400 Heart rate 72 /min Frantz [place] [employer] MECH[employer]IC.DIRECTOR EMERGENCY Work Phone: [facility] 12-07-2021 11:43-0400 Systolic blood pressure 126 mm[Hg] Frantz Magdy [employer] MECH[employer]IC.DIRECTOR EMERGENCY Work Phone: [facility] 12-04-2021 14:09-0400 Body weight 60.33 kg Frantz Curran [employer].DIRECTOR EMERGENCY Work Phone: [facility] 12-04-2021 14:09-0400 Diastolic blood pressure 54 mm[Hg] Frantz Curran [employer].DIRECTOR EMERGENCY Work Phone: [facility] 12-04-2021 14:09-0400 Heart rate 71 /min Frantz Curran [employer] ME[employer]IC.DIRECTOR EMERGENCY Work Phone: [facility] 12-04-2021 14:09-0400 Systolic blood pressure 133 mm[Hg] Frantz Curran [employer] MECH[employer]IC.DIRECTOR EMERGENCY Work Phone: [facility] 11-30-2021 14:26-0400 Body temperature 97.88 [degF] Tatum Orzech [facility] 11-30-2021 14:26-0400 Diastolic blood pressure 60 mm[Hg] Tatum Orzech [facility] 11-30-2021 14:26-0400 Heart rate 72 /min Roberts Orzech [facility] 11-30-2021 14:26-0400 SaO2% (BldA) [Mass fraction] 95 % Tatum Orzech [facility] 11-30-2021 14:26-0400 Systolic blood pressure 122 mm[Hg] Tatum Orzech [facility] 11-23-2021 13:06-0400 Blood Pressure Location Rosalie Bush [facility] [place] 11-23-2021 13:06-0400 Body temperature 97.52 [degF] Rosalie Klonk [facility] 11-23-2021 13:06-0400 Diastolic blood pressure 66 mm[Hg] Rosalie Parikhonk [facility] 11-23-2021 13:06-0400 Heart rate 76 /min Rosalie Lottk [facility] 11-23-2021 13:06-0400 SaO2% (BldA) [Mass fraction] 91 % Rosalie Lottk [facility] 11-23-2021 13:06-0400 Systolic blood pressure 120 mm[Hg] Rosalie Lottk [facility] 11-21-2021 19:28-0400 Body temperature 98.24 [degF] Carlos Jaxon [facility] 11-21-2021 19:28-0400 Diastolic blood pressure 73 mm[Hg] Carlos Jaxon [facility] 11-21-2021 19:28-0400 Heart rate 81 /min Carlos Jaxon [facility] 11-21-2021 19:28-0400 Respiratory rate 16 /min Carlos Jaxon [facility] 11-21-2021 19:28-0400 SaO2% (BldA) [Mass fraction] 93 % Carlos Jaxon [facility] 11-21-2021 19:28-0400 Systolic blood pressure 141 mm[Hg] Carlos Jaxon [facility] 11-17-2021 18:30-0400 Diastolic blood pressure 67 mm[Hg] Chandan Onofre [facility] 11-17-2021 18:30-0400 Heart rate 53 /min Chandan Munoze [facility] 11-17-2021 18:30-0400 Mean blood pressure 88 mm[Hg] Chandan Munoze [facility] 11-17-2021 18:30-0400 Respiratory rate 16 /min Chandan Munoze [facility] 11-17-2021 18:30-0400 SaO2% (BldA) [Mass fraction] 94 % Chandan Munoze [facility] 11-17-2021 18:30-0400 Systolic blood pressure 129 mm[Hg] Chandan Munoze [facility] 11-17-2021 17:20-0400 Body temperature 98.42 [degF] Chandan Munoze [facility] 11-17-2021 17:20-0400 Diastolic blood pressure 76 mm[Hg] Chandan Munoze [facility] 11-17-2021 17:20-0400 Heart rate 66 /min Chandan Munoze [facility] 11-17-2021 17:20-0400 Respiratory rate 18 /min Chandan Munoze [facility] 11-17-2021 17:20-0400 SaO2% (BldA) [Mass fraction] 94 % Chandan Munoze [facility] 11-17-2021 17:20-0400 Systolic blood pressure 128 mm[Hg] Chandan Munoze [facility] 11-16-2021 15:22-0400 Body temperature 97.7 [degF] Chandan Munoze [facility] 11-16-2021 15:22-0400 Diastolic blood pressure 70 mm[Hg] Chandan Adhikari [facility] 11-16-2021 15:22-0400 Heart rate 71 /min Chandan Adhikari [facility] 11-16-2021 15:22-0400 Respiratory rate 14 /min Chandan Adhikari [facility] 11-16-2021 15:22-0400 SaO2% (BldA) [Mass fraction] 95 % Chandan Adhikari [facility] 11-16-2021 15:22-0400 Systolic blood pressure 126 mm[Hg] Chandan Adhikari [facility] 11-08-2021 19:13-0400 Diastolic blood pressure 76 mm[Hg] [facility] 11-08-2021 19:13-0400 Heart rate 68 /min [facility] 11-08-2021 19:13-0400 Mean blood pressure 93 mm[Hg] [facility] 11-08-2021 19:13-0400 Respiratory rate 12 /min [facility] 11-08-2021 19:13-0400 SaO2% (BldA) [Mass fraction] 97 % [facility] 11-08-2021 19:13-0400 Systolic blood pressure 128 mm[Hg] [facility] 11-08-2021 19:00-0400 Body temperature 98.6 [degF] [facility] 11-08-2021 18:45-0400 Diastolic blood pressure 84 mm[Hg] [facility] 11-08-2021 18:45-0400 Heart rate 68 /min [facility] 11-08-2021 18:45-0400 Mean blood pressure 97 mm[Hg] [facility] 11-08-2021 18:45-0400 Respiratory rate 14 /min [facility] 11-08-2021 18:45-0400 SaO2% (BldA) [Mass fraction] 98 % [facility] 11-08-2021 18:45-0400 Systolic blood pressure 123 mm[Hg] [facility] 11-08-2021 17:20-0400 gluc 106 mg/dL [facility] 11-08-2021 17:20-[address] [facility] 11-08-2021 17:12-0400 Body temperature 98.24 [degF] [facility] 11-08-2021 17:12-0400 Diastolic blood pressure 81 mm[Hg] [facility] 11-08-2021 17:12-0400 Heart rate 67 /min [facility] 11-08-2021 17:12-0400 Respiratory rate 16 /min [facility] 11-08-2021 17:12-0400 SaO2% (BldA) [Mass fraction] 93 % [facility] 11-08-2021 17:12-0400 Systolic blood pressure 116 mm[Hg] [facility] 11-07-2021 08:52-0400 Blood Pressure Location Rosalie LottAdchemy [facility] 11-07-2021 08:52-0400 Body temperature 96.8 [degF] Rosalie Bush [facility] 11-07-2021 08:52-0400 Diastolic blood pressure 86 mm[Hg] Rosalie Bush [facility] 11-07-2021 08:52-0400 Heart rate 74 /min Rosalie Bush [facility] 11-07-2021 08:52-0400 SaO2% (BldA) [Mass fraction] 96 % Rosalie Lottk [facility] 11-07-2021 08:52-0400 Systolic blood pressure 156 mm[Hg] Rosalie Lottk [facility] 11-06-2021 18:07-0400 Body temperature 98.06 [degF] Johny Willson [facility] 11-06-2021 18:07-0400 Diastolic blood pressure 62 mm[Hg] Johny Willson [facility] 11-06-2021 18:07-0400 Heart rate 82 /min Johny [facility]ris [facility] 11-06-2021 18:07-0400 Respiratory rate 20 /min Johny [facility]ris [facility] 11-06-2021 18:07-0400 SaO2% (BldA) [Mass fraction] 100 % Johny [facility]ris [facility] 11-06-2021 18:07-0400 Systolic blood pressure 153 mm[Hg] Johny [facility] 10-30-2021 11:32-0400 Diastolic blood pressure 74 mm[Hg] Osmar Ferreira MD Work Phone: [facility] 10-30-2021 11:32-0400 Heart rate 66 /min Osmar Ferreira MD Work Phone: [facility] 10-30-2021 11:32-0400 Respiratory rate 16 /min Osmar Ferreira MD Work Phone: [facility] 10-30-2021 11:32-0400 SaO2% (BldA) [Mass fraction] 93 % Osmar Ferreira MD Work Phone: [facility] 10-30-2021 11:32-0400 Systolic blood pressure 157 mm[Hg] Osmar Ferreira MD Work Phone: [facility] 10-27-2021 11:00-0400 Diastolic blood pressure 71 mm[Hg] Johny Willson [facility] 10-27-2021 11:00-0400 Heart rate 64 /min Johny Demetris [facility] 10-27-2021 11:00-0400 Mean blood pressure 96 mm[Hg] Johny Demetris [facility] 10-27-2021 11:00-0400 Respiratory rate 16 /min Johny Demetris [facility] 10-27-2021 11:00-0400 SaO2% (BldA) [Mass fraction] 94 % Johny Demetris [facility] 10-27-2021 11:00-0400 Systolic blood pressure 146 mm[Hg] Johny Demetris [facility] 10-27-2021 09:49-0400 Body temperature 98.06 [degF] Johny Demetris [facility] 10-27-2021 09:49-0400 Diastolic blood pressure 75 mm[Hg] Johny Demetris [facility] 10-27-2021 09:49-0400 Heart rate 73 /min Johny Demetris [facility] 10-27-2021 09:49-0400 Respiratory rate 18 /min Johny Willson [facility] 10-27-2021 09:49-0400 SaO2% (BldA) [Mass fraction] 93 % Johny Willson [facility] 10-27-2021 09:49-0400 Systolic blood pressure 154 mm[Hg] Johny Willson [facility] 10-23-2021 21:00-0400 Diastolic blood pressure 60 mm[Hg] Chandan Adhikari [facility] 10-23-2021 21:00-0400 Heart rate 64 /min Chandan Onofre [facility] 10-23-2021 21:00-0400 Mean blood pressure 79 mm[Hg] Chandan Onofre [facility] 10-23-2021 21:00-0400 Systolic blood pressure 116 mm[Hg] Chandan Onofre [facility] 10-23-2021 20:00-0400 Diastolic blood pressure 76 mm[Hg] Chandan Onofre [facility] 10-23-2021 20:00-0400 Heart rate 65 /min Chandan Onofre [facility] 10-23-2021 20:00-0400 Mean blood pressure 92 mm[Hg] Chandan Onofre [facility] 10-23-2021 20:00-0400 SaO2% (BldA) [Mass fraction] 93 % Chandan Onofre [facility] 10-23-2021 20:00-0400 Systolic blood pressure 125 mm[Hg] Chandan Onofre [facility] 10-23-2021 19:13-0400 gluc 111 mg/dL Chandan Onofre [facility] 10-23-2021 19:13-0400 gluc Chandan Munoze [facility] 10-23-2021 19:05-0400 Body temperature 98.6 [degF] Chandan Adhikari [facility] 10-23-2021 19:05-0400 Diastolic blood pressure 70 mm[Hg] Cahndan Adhikari [facility] 10-23-2021 19:05-0400 Heart rate 69 /min Chandan Adhikari [facility] 10-23-2021 19:05-0400 Respiratory rate 18 /min Chandan Adhikari [facility] 10-23-2021 19:05-0400 SaO2% (BldA) [Mass fraction] 91 % Chandan Adhikari [facility] 10-23-2021 19:05-0400 Systolic blood pressure 138 mm[Hg] Chandan Adhikari [facility] 10-23-2021 02:03-0400 Diastolic blood pressure 64 mm[Hg] Speedyylinn Dokken [facility] 10-23-2021 02:03-0400 Heart rate 66 /min Speedyylinn Dokken [facility] 10-23-2021 02:03-0400 Mean blood pressure 82 mm[Hg] Kaylinn Dokken [facility] 10-23-2021 02:03-0400 Respiratory rate 16 /min Kaylinn Dokken [facility] 10-23-2021 02:03-0400 SaO2% (BldA) [Mass fraction] 92 % Kaylinn Dokken [facility] 10-23-2021 02:03-0400 Systolic blood pressure 118 mm[Hg] Kaylinn Dokken [facility] 10-23-2021 01:00-0400 Diastolic blood pressure 63 mm[Hg] Kaylinn Dokken [facility] 10-23-2021 01:00-0400 Heart rate 60 /min Kaylinn Dokken [facility] 10-23-2021 01:00-0400 Mean blood pressure 80 mm[Hg] Kaylinn Dokken [facility] 10-23-2021 01:00-0400 Respiratory rate 16 /min Kaylinn Dokken [facility] 10-23-2021 01:00-0400 SaO2% (BldA) [Mass fraction] 95 % Kaylinn Dokken [facility] 10-23-2021 01:00-0400 Systolic blood pressure 114 mm[Hg] Kaylinn Dokken [facility] 10-23-2021 00:00-0400 Heart rate 67 /min Kaylinn Dokken [facility] 10-23-2021 00:00-0400 SaO2% (BldA) [Mass fraction] 92 % Kaylinn Dokken [facility] 10-22-2021 23:49-0400 Body temperature 98.78 [degF] Kaylinn Dokken [facility] 10-22-2021 23:49-0400 Diastolic blood pressure 67 mm[Hg] Kaylinn Dokken [facility] 10-22-2021 23:49-0400 Heart rate 72 /min Kaylinn Dokken [facility] 10-22-2021 23:49-0400 Systolic blood pressure 125 mm[Hg] Mati Taylor [facility] 10-20-2021 08:27-0400 Hourly Rounding Chandan Adhikari [facility] 10-20-2021 08:20-0400 Diastolic blood pressure 76 mm[Hg] Chandan Onofre [facility] 10-20-2021 08:20-0400 Heart rate 90 /min Chandan Onofre [facility] 10-20-2021 08:20-0400 Respiratory rate 16 /min Chandan Onofre [facility] 10-20-2021 08:20-0400 SaO2% (BldA) [Mass fraction] 97 % Chandan Onofre [facility] 10-20-2021 08:20-0400 Systolic blood pressure 134 mm[Hg] Chandan Onofre [facility] 10-20-2021 07:24-0400 Diastolic blood pressure 74 mm[Hg] Chandan Onofre [facility] 10-20-2021 07:24-0400 Heart rate 88 /min Chandan Onofre [facility] 10-20-2021 07:24-0400 Respiratory rate 16 /min Chandan Onofre [facility] 10-20-2021 07:24-0400 SaO2% (BldA) [Mass fraction] 98 % Chandan Onofre [facility] 10-20-2021 07:24-0400 Systolic blood pressure 136 mm[Hg] Chandan Onofre [facility] 10-14-2021 11:33-0400 Diastolic blood pressure 47 mm[Hg] Johny Spenser [facility] 10-14-2021 11:33-0400 Mean blood pressure 67 mm[Hg] Johny Spenser [facility] 10-14-2021 11:33-0400 Systolic blood pressure 106 mm[Hg] Johny Spenser [facility] 10-14-2021 11:00-0400 Heart rate 54 /min Johny Spenser [facility] 10-14-2021 11:00-0400 SaO2% (BldA) [Mass fraction] 94 % Johny Spenser [facility] 10-14-2021 10:26-0400 Body temperature 98.42 [degF] Johny Spenser [facility] 10-14-2021 10:26-0400 Diastolic blood pressure 59 mm[Hg] Johny Spenser [facility] 10-14-2021 10:26-0400 Heart rate 59 /min Johny Spenser [facility] 10-14-2021 10:26-0400 Respiratory rate 16 /min Johny Spenser [facility] 10-14-2021 10:26-0400 SaO2% (BldA) [Mass fraction] 93 % Johny Spenser [facility] 10-14-2021 10:26-0400 Systolic blood pressure 123 mm[Hg] Johny Spenser [facility] 10-12-2021 21:35-0400 Body temperature 98.06 [degF] Carlos Jaxon [facility] 10-12-2021 21:35-0400 Diastolic blood pressure 60 mm[Hg] Carlos Jaxon [facility] 10-12-2021 21:35-0400 Heart rate 70 /min Carlos Jaxon [facility] 10-12-2021 21:35-0400 Mean blood pressure 83 mm[Hg] Carlos Jaxon [facility] 10-12-2021 21:35-0400 Respiratory rate 18 /min Carlos Jaxon [facility] 10-12-2021 21:35-0400 SaO2% (BldA) [Mass fraction] 92 % Carlos Jaxon [facility] 10-12-2021 21:35-0400 Systolic blood pressure 130 mm[Hg] Carlos Jaxon [facility] 10-12-2021 20:48-0400 Body temperature 98.06 [degF] Carlos Jaxon [facility] 10-12-2021 20:48-0400 Diastolic blood pressure 80 mm[Hg] Carlos Jaxon [facility] 10-12-2021 20:48-0400 Heart rate 75 /min Carlos Jaxon [facility] 10-12-2021 20:48-0400 Mean blood pressure 107 mm[Hg] Carlos Jaxon [facility] 10-12-2021 20:48-0400 Respiratory rate 20 /min Carlos Jaxon [facility] 10-12-2021 20:48-0400 SaO2% (BldA) [Mass fraction] 93 % Carlos Jaxon [facility] 10-12-2021 20:48-0400 Systolic blood pressure 160 mm[Hg] Carlos Jaxon [facility] 10-04-2021 19:12-0400 Body height 154.94 cm DO Tomas Farrell Work Phone: [facility] 10-04-2021 19:12-0400 Body mass index (BMI) [Ratio] 26.7 kg/m2 DO Tomas Farrell Work Phone: [facility] 10-04-2021 19:12-0400 Body temperature 97.8 [degF] DO Tomas Farrell Work Phone: [facility] 10-04-2021 19:12-0400 Body weight 64.2 kg DO Tomas Farrell Work Phone: [facility] 10-04-2021 19:12-0400 Diastolic blood pressure 63 mm[Hg] DO Tomas Farrell Work Phone: [facility] 10-04-2021 19:12-0400 Heart rate 68 /min DO Tomas Farrell Work Phone: [facility] 10-04-2021 19:12-0400 Respiratory rate 18 /min DO Tomas Farrell Work Phone: [facility] 10-04-2021 19:12-0400 SaO2% (BldA) [Mass fraction] 96 % DO Tomas Farrell Work Phone: [facility] 10-04-2021 19:12-0400 Systolic blood pressure 150 mm[Hg] DO Tomas Farrell Work Phone: [facility] 10-03-2021 23:52-0400 Respiratory rate 16 /min Speedyhaylie Dokarmenen [facility] 10-03-2021 21:53-0400 Body temperature 97.7 [degF] Kaylinn Dokken [facility] 10-03-2021 21:53-0400 Diastolic blood pressure 68 mm[Hg] Kaylinn Dokken [facility] 10-03-2021 21:53-0400 Heart rate 68 /min Kaylinn Dokken [facility] 10-03-2021 21:53-0400 Respiratory rate 18 /min Mati Taylor [facility] 10-03-2021 21:53-0400 SaO2% (BldA) [Mass fraction] 94 % Mati Rileyen [facility] 10-03-2021 21:53-0400 Systolic blood pressure 125 mm[Hg] Mati Rileyen [facility] 10-01-2021 19:00-0400 Diastolic blood pressure 75 mm[Hg] Chandan Adhikari [facility] 10-01-2021 19:00-0400 Heart rate 65 /min Chandan Munoze [facility] 10-01-2021 19:00-0400 Hourly Rounding Chandan Adhikari [facility] 10-01-2021 19:00-0400 Promise to Return Chandan Adhikari [facility] 10-01-2021 19:00-0400 SaO2% (BldA) [Mass fraction] 95 % Chandan Munoze [facility] 10-01-2021 19:00-0400 Systolic blood pressure 118 mm[Hg] Chandan Onofre [facility] 10-01-2021 18:12-0400 Body temperature 98.42 [degF] Chandan Onofre [facility] 10-01-2021 18:12-0400 Diastolic blood pressure 82 mm[Hg] Chandan Onofre [facility] 10-01-2021 18:12-0400 Heart rate 68 /min Chandan Munoze [facility] 10-01-2021 18:12-0400 Respiratory rate 16 /min Chandan Adhikari [facility] 10-01-2021 18:12-0400 SaO2% (BldA) [Mass fraction] 92 % Chandan Adhikari [facility] 10-01-2021 18:12-0400 Systolic blood pressure 119 mm[Hg] Chandan Adhikari [facility] 09-30-2021 22:00-0400 Diastolic blood pressure 68 mm[Hg] [facility] 09-30-2021 22:00-0400 Heart rate 72 /min [facility] 09-30-2021 22:00-0400 Mean blood pressure 86 mm[Hg] [facility] 09-30-2021 22:00-0400 SaO2% (BldA) [Mass fraction] 96 % [facility] 09-30-2021 22:00-0400 Systolic blood pressure 121 mm[Hg] [facility] 09-30-2021 21:06-0400 Body temperature 97.52 [degF] [facility] 09-30-2021 21:06-0400 Diastolic blood pressure 65 mm[Hg] [facility] 09-30-2021 21:06-0400 Heart rate 75 /min [facility] 09-30-2021 21:06-0400 Respiratory rate 16 /min [facility] 09-30-2021 21:06-0400 SaO2% (BldA) [Mass fraction] 95 % [facility] 09-30-2021 21:06-0400 Systolic blood pressure 120 mm[Hg] [facility] 09-17-2021 11:30-0400 Diastolic blood pressure 84 mm[Hg] Chandan Adhikari [facility] 09-17-2021 11:30-0400 Heart rate 84 /min Chandan Munoze [facility] 09-17-2021 11:30-0400 Respiratory rate 16 /min Chandan Muonze [facility] 09-17-2021 11:30-0400 SaO2% (BldA) [Mass fraction] 98 % Chandan Munoze [facility] 09-17-2021 11:30-0400 Systolic blood pressure 125 mm[Hg] Chandan Munoze [facility] 09-17-2021 09:31-0400 Body temperature 97.7 [degF] Chandan Onofre [facility] 09-17-2021 09:31-0400 Diastolic blood pressure 81 mm[Hg] Chandan Onofre [facility] 09-17-2021 09:31-0400 Heart rate 78 /min Chandan Munoze [facility] 09-17-2021 09:31-0400 Respiratory rate 16 /min Chandan Munoze [facility] 09-17-2021 09:31-0400 SaO2% (BldA) [Mass fraction] 96 % Chandan Munoze [facility] 09-17-2021 09:31-0400 Systolic blood pressure 127 mm[Hg] Chandan Onofre [facility] 09-13-2021 11:11-0400 Blood Pressure Location JHONATAN SIDELL [facility] 09-13-2021 11:11-0400 Body temperature 97.7 [degF] JHONATAN SIDELL [facility] 09-13-2021 11:11-0400 Diastolic blood pressure 78 mm[Hg] JHONATAN SIDELL [facility] 09-13-2021 11:11-0400 Systolic blood pressure 138 mm[Hg] JHONATAN SIDELL [facility] 09-13-2021 10:54-0400 Blood Pressure Location JHONATAN SIDEGRANT [facility] 09-08-2021 17:57-0400 Diastolic blood pressure 65 mm[Hg] DO Tomasjanay Farrell Work Phone: [facility] 09-08-2021 17:57-0400 Heart rate 81 /min DO Tomas Jose Work Phone: [facility] 09-08-2021 17:57-0400 Respiratory rate 18 /min DO Tomas Jose Work Phone: [facility] 09-08-2021 17:57-0400 SaO2% (BldA) [Mass fraction] 92 % DO Tomas Jose Work Phone: [facility] 09-08-2021 17:57-0400 Systolic blood pressure 135 mm[Hg] DO Tomas Jose Work Phone: [facility] 09-08-2021 15:54-0400 Body height 157.48 cm DO Tomas Jose Work Phone: [facility] 09-08-2021 15:54-0400 Body mass index (BMI) [Ratio] 25.6 kg/m2 DO Tomas Jose Work Phone: [facility] 09-08-2021 15:54-0400 Body temperature 98.6 [degF] DO Tomas Jose Work Phone: [facility] 09-08-2021 15:54-0400 Body weight 63.5 kg DO Tomas Jose Work Phone: [facility] 09-08-2021 09:50-0400 Diastolic blood pressure 85 mm[Hg] Chandan Adhikari [facility] 09-08-2021 09:50-0400 Heart rate 65 /min Chandan Adhikari [facility] 09-08-2021 09:50-0400 Mean blood pressure 102 mm[Hg] Chandan Munoze [facility] 09-08-2021 09:50-0400 Respiratory rate 15 /min Chandan Munoze [facility] 09-08-2021 09:50-0400 SaO2% (BldA) [Mass fraction] 92 % Chandan Adhikari [facility] 09-08-2021 09:50-0400 Systolic blood pressure 135 mm[Hg] Chandan Munoze [facility] 09-08-2021 08:39-0400 Body temperature 97.88 [degF] Chandan Adhikari [facility] 09-08-2021 08:39-0400 Diastolic blood pressure 77 mm[Hg] Chandan Adhikari [facility] 09-08-2021 08:39-0400 Heart rate 79 /min Chandan Munoze [facility] 09-08-2021 08:39-0400 Respiratory rate 15 /min Chandan Munoze [facility] 09-08-2021 08:39-0400 SaO2% (BldA) [Mass fraction] 94 % Chandan Munoze [facility] 09-08-2021 08:39-0400 Systolic blood pressure 141 mm[Hg] Chandan Munoze [facility] 09-08-2021 05:09-0400 Body temperature 96.98 [degF] Santiago Len [facility] 09-08-2021 05:09-0400 Diastolic blood pressure 88 mm[Hg] Santiago Len [facility] 09-08-2021 05:09-0400 Heart rate 86 /min Santiago Len [facility] 09-08-2021 05:09-0400 Respiratory rate 16 /min Santiago Len [facility] 09-08-2021 05:09-0400 SaO2% (BldA) [Mass fraction] 94 % Santiago Len [facility] 09-08-2021 05:09-0400 Systolic blood pressure 140 mm[Hg] Santiago Len [facility] 09-07-2021 22:35-0400 Diastolic blood pressure 74 mm[Hg] Santiago Len [facility] 09-07-2021 22:35-0400 Heart rate 75 /min Santiago Len [facility] 09-07-2021 22:35-0400 Mean blood pressure 92 mm[Hg] Santiago Len [facility] 09-07-2021 22:35-0400 Respiratory rate 15 /min Santiago Len [facility] 09-07-2021 22:35-0400 SaO2% (BldA) [Mass fraction] 90 % Santiago Len [facility] 09-07-2021 22:35-0400 Systolic blood pressure 129 mm[Hg] Santiago Len [facility] 09-07-2021 21:36-0400 Body temperature 97.7 [degF] Santiago Len [facility] 09-07-2021 21:36-0400 Diastolic blood pressure 65 mm[Hg] Santiago Len [facility] 09-07-2021 21:36-0400 Heart rate 78 /min Santiago Len [facility] 09-07-2021 21:36-0400 Respiratory rate 18 /min Santiago Len [facility] 09-07-2021 21:36-0400 SaO2% (BldA) [Mass fraction] 92 % Santiago Len [facility] 09-07-2021 21:36-0400 Systolic blood pressure 130 mm[Hg] Santiago Len [facility] 09-07-2021 07:55-0400 Diastolic blood pressure 62 mm[Hg] Carlos Jaxon [facility] 09-07-2021 07:55-0400 Heart rate 69 /min Carlos Jaxon [facility] 09-07-2021 07:55-0400 Mean blood pressure 85 mm[Hg] Carlos Jaxon [facility] 09-07-2021 07:55-0400 Respiratory rate 18 /min Carlos Jaxon [facility] 09-07-2021 07:55-0400 SaO2% (BldA) [Mass fraction] 95 % Carlos Jaxon [facility] 09-07-2021 07:55-0400 Systolic blood pressure 131 mm[Hg] Carlos Jaxon [facility] 09-07-2021 07:07-0400 Hourly Rounding Carlos Jaxon [facility] 09-07-2021 07:07-0400 Promise to Return Carlos Jaxon [facility] 09-07-2021 07:04-0400 Diastolic blood pressure 74 mm[Hg] Carlos Jaxon [facility] 09-07-2021 07:04-0400 Heart rate 68 /min Carlos Jaxon [facility] 09-07-2021 07:04-0400 Mean blood pressure 92 mm[Hg] Carlos Jaxon [facility] 09-07-2021 07:04-0400 Respiratory rate 18 /min Carlos Jaxon [facility] 09-07-2021 07:04-0400 SaO2% (BldA) [Mass fraction] 95 % Carlos Jaxon [facility] 09-07-2021 07:04-0400 Systolic blood pressure 129 mm[Hg] Carlos Jaxon [facility] 09-07-2021 06:15-0400 Promise to Return Carlos Jaxon [facility] 09-07-2021 05:44-0400 Body temperature 98.6 [degF] Carlos Jaxon [facility] 09-07-2021 05:44-0400 Diastolic blood pressure 85 mm[Hg] Carlos Jaxon [facility] 09-07-2021 05:44-0400 Heart rate 71 /min Carlos Jaxon [facility] 09-07-2021 05:44-0400 Respiratory rate 16 /min Carlos Jaxon [facility] 09-07-2021 05:44-0400 SaO2% (BldA) [Mass fraction] 98 % Carlos Jaxon [facility] 09-07-2021 05:44-0400 Systolic blood pressure 148 mm[Hg] Carlos Jaxon [facility] 09-06-2021 11:49-0400 Blood Pressure Location Tomas FARRELL [facility] 09-06-2021 11:49-0400 Body temperature 97.52 [degF] Tomas FARRELL [facility] 09-06-2021 11:49-0400 Diastolic blood pressure 64 mm[Hg] Tomas FARRELL [facility] 09-06-2021 11:49-0400 Heart rate 92 /min Tomas FARRELL [facility] 09-06-2021 11:49-0400 SaO2% (BldA) [Mass fraction] 95 % Tomas FARRELL [facility] 09-06-2021 11:49-0400 Systolic blood pressure 158 mm[Hg] Tomas FARRELL [facility] 08-08-2021 00:02-0400 Diastolic blood pressure 65 mm[Hg] DO Tomas Farrell Work Phone: [facility] 08-08-2021 00:02-0400 Heart rate 73 /min DO Tomas Farrell Work Phone: [facility] 08-08-2021 00:02-0400 Inhaled oxygen flow rate 2 L/min DO Tomas Farrell Work Phone: [facility] 08-08-2021 00:02-0400 Respiratory rate 24 /min DO Tomas Farrell Work Phone: [facility] 08-08-2021 00:02-0400 SaO2% (BldA) [Mass fraction] 93 % DO Tomas Farrell Work Phone: [facility] 08-08-2021 00:02-0400 Systolic blood pressure 137 mm[Hg] DO Tomas Farrell Work Phone: [facility] 08-07-2021 22:00-0400 Body height 157.48 cm DO Tomas Farrell Work Phone: [facility] 08-07-2021 22:00-0400 Body mass index (BMI) [Ratio] 22.8 kg/m2 DO Tomas Farrell Work Phone: [facility] 08-07-2021 22:00-0400 Body temperature 97.6 [degF] DO Tomas Farrell Work Phone: [facility] 08-07-2021 22:00-0400 Body weight 56.69 kg DO Tomas Farrell Work Phone: [facility] 07-27-2021 13:46-0500 Body height 154.94 cm DO Tomas Farrell Work Phone: [facility] 07-27-2021 13:46-0500 Body mass index (BMI) [Ratio] 26.5 kg/m2 DO Tomas Farrell Work Phone: [facility] 07-27-2021 13:46-0500 Body temperature 98.5 [degF] DO Tomas Farrell Work Phone: [facility] 07-27-2021 13:46-0500 Body weight 63.7 kg DO Tomas Farrell Work Phone: [facility] 07-27-2021 13:46-0500 Diastolic blood pressure 60 mm[Hg] DO Tomas Farrell Work Phone: [facility] 07-27-2021 13:46-0500 Heart rate 94 /min DO Tomas Farrell Work Phone: [facility] 07-27-2021 13:46-0500 Respiratory rate 18 /min DO Tomas Farrell Work Phone: [facility] 07-27-2021 13:46-0500 SaO2% (BldA) [Mass fraction] 92 % DO Tomas Farrell Work Phone: [facility] 07-27-2021 13:46-0500 Systolic blood pressure 112 mm[Hg] DO Tomas Farrell Work Phone: [facility] 07-22-2021 15:37-0500 Body height 157.48 cm DO Tomas Farrell Work Phone: [facility] 07-22-2021 15:37-0500 Body mass index (BMI) [Ratio] 25.7 kg/m2 DO Tomas Farrell Work Phone: [facility] 07-22-2021 15:37-0500 Body weight 63.95 kg DO Tomas Farrell Work Phone: [facility] 07-22-2021 15:36-0500 Body temperature 98.1 [degF] DO Tomas Farrell Work Phone: [facility] 07-22-2021 15:36-0500 Diastolic blood pressure 63 mm[Hg] DO Tomas Farrell Work Phone: [facility] 07-22-2021 15:36-0500 Heart rate 78 /min DO Tomas Farrell Work Phone: [facility] 07-22-2021 15:36-0500 Respiratory rate 20 /min DO Tomas Farrell Work Phone: [facility] 07-22-2021 15:36-0500 SaO2% (BldA) [Mass fraction] 91 % DO Tomas Farrell Work Phone: [facility] 07-22-2021 15:36-0500 Systolic blood pressure 141 mm[Hg] DO Tomas Farrell Work Phone: [facility] 07-19-2021 17:59-0500 Body temperature 97.3 [degF] DO Tomas Farrell Work Phone: [facility] 07-19-2021 17:59-0500 Diastolic blood pressure 76 mm[Hg] DO Tomas Farrell Work Phone: [facility] 07-19-2021 17:59-0500 Heart rate 66 /min DO Tomas Farrell Work Phone: [facility] 07-19-2021 17:59-0500 Respiratory rate 16 /min DO Tomas Farrell Work Phone: [facility] 07-19-2021 17:59-0500 SaO2% (BldA) [Mass fraction] 93 % DO Tomas Farrell Work Phone: [facility] 07-19-2021 17:59-0500 Systolic blood pressure 150 mm[Hg] DO Tomas Farrell Work Phone: [facility] 07-19-2021 17:06-0500 Body height 154.94 cm DO Tomas Farrell Work Phone: [facility] 07-19-2021 17:06-0500 Body mass index (BMI) [Ratio] 26.6 kg/m2 DO Tomas Farrell Work Phone: [facility] 07-19-2021 17:06-0500 Body weight 63.95 kg DO Tomas Jose Work Phone: [facility] 12-29-2020 15:43-0400 Diastolic blood pressure 35 mm[Hg] Osmar Ferreira MD Work Phone: [facility] 12-29-2020 15:43-0400 Heart rate 87 /min Osmar Ferreira MD Work Phone: [facility] 12-29-2020 15:43-0400 Respiratory rate 16 /min Osmar Ferreira MD Work Phone: [facility] 12-29-2020 15:43-0400 SaO2% (BldA) [Mass fraction] 95 % Osmar Ferreira MD Work Phone: [facility] 12-29-2020 15:43-0400 Systolic blood pressure 105 mm[Hg] Osmar Ferreira MD Work Phone: [facility] Encounters Encounter Date Encounter Type Care Provider Facility Start: 01-28-2024 End: 01-28-2024 Emergency department patient visit Didier Hooks [facility] Start: 01-27-2024 End: 01-27-2024 ambulatory ANNE MARIE POCOS Not Available Start: 01-12-2024 End: 01-12-2024 ambulatory Anne Marie Pocos Facility:[facility] Start: 01-12-2024 End: 01-12-2024 Patient encounter procedure Anne Marie Pocos [facility] Start: 01-12-2024 End: 01-12-2024 ambulatory ANNE MARIE POCOS Not Available Start: 01-10-2024 End: 01-10-2024 Emergency department patient visit Mati Taylor [facility] Start: 01-02-2024 End: 01-02-2024 Lab Drop off Amarilis Gold [facility] Start: 01-02-2024 End: 01-02-2024 ambulatory Amarilis Gold Facility:[facility] Start: 01-02-2024 End: 01-02-2024 Patient encounter procedure Amarilis Gold [facility] Start: 12-19-2023 End: 12-19-2023 ambulatory AZUL BATEMAN Facility:[facility] Start: 12-19-2023 End: 12-19-2023 Patient encounter procedure Gala Black [facility] Start: 12-16-2023 End: 12-16-2023 ambulatory AZUL BATEMAN Facility:[facility] Start: 11-07-2023 End: 11-07-2023 ambulatory Gala Black Facility:[facility] Start: 11-07-2023 End: 11-07-2023 Patient encounter procedure Gala Black [facility] Start: 10-28-2023 End: 10-28-2023 ambulatory AZUL BATEMAN Facility:[facility] Start: 10-09-2023 End: 10-09-2023 ambulatory Gala Black Facility:[facility] Start: 10-09-2023 End: 10-09-2023 Patient encounter procedure Gala Black [facility] Start: 09-11-2023 End: 09-12-2023 Pre-admission assessment AZUL BATEMAN [facility] Start: 09-07-2023 End: 09-12-2023 ambulatory DIRECTOR EMERGENCY AZUL BATEMAN Facility:[facility] Start: 09-07-2023 End: 09-12-2023 Observation Ana Gandhi [facility] Start: 09-06-2023 ambulatory Tomas Moreno y:[facility] Start: 09-06-2023 End: 09-06-2023 Emergency department patient visit CRANE MECHANIC Bebe Mccabee Work Phone: [facility] Work Phone: Start: 08-28-2023 End: 08-29-2023 Pre-admission assessment AZUL BATEMAN [facility] Start: 08-28-2023 Non-patient / Non-visit CRANE MECHANIC Lucille nance Saffle Work Phone: [facility] Work Phone: Start: 08-27-2023 End: 09-02-2023 Evaluation and management of inpatient SVITLANA Ortiz Work Phone: [facility] Work Phone: Start: 08-27-2023 End: 08-27-2023 Emergency department patient visit Jhony Willson [facility] Start: 08-22-2023 End: 08-22-2023 Emergency department patient visit SVITLANA Ortiz Work Phone: [facility] Work Phone: Start: 08-21-2023 End: 08-21-2023 Emergency department patient visit Johny Willson [facility] Start: 08-19-2023 End: 08-19-2023 ambulatory DIRECTOR EMERGENCY AZUL BATEMAN Facility:[facility] Start: 08-18-2023 ambulatory Gala Moreno y:[facility] Start: 08-14-2023 End: 08-14-2023 Emergency department patient visit Johny Willson [facility] Start: 08-13-2023 End: 08-13-2023 Emergency department patient visit Mati Taylor [facility] Start: 08-12-2023 End: 08-12-2023 Emergency department patient visit Mati Taylor [facility] Start: 08-09-2023 End: 08-10-2023 Emergency department patient visit Santiago Harrington [facility] Start: 08-07-2023 End: 08-07-2023 Emergency department patient visit Didier Hooks [facility] Start: 07-05-2023 End: 07-05-2023 Emergency department patient visit SVITLANA Ortiz Work Phone: [facility] Work Phone: Start: 06-19-2023 End: 06-19-2023 ambulatory JAMILAH L. SLINGWINE Facility:[facility] Start: 06-19-2023 End: 06-19-2023 Lab Drop off JAMILAH L. OUSMANEINGEDWINE [facility] Start: 05-26-2023 End: 05-26-2023 Emergency department patient visit Carlos Coates [facility] Start: 05-04-2023 End: 05-04-2023 Emergency department patient visit Johny Willson Facility:[facility] Start: 03-14-2023 End: 03-14-2023 ambulatory JAMILAH LKaran ROMEOINGEDWINE Facility:[facility] Start: 03-14-2023 End: 03-14-2023 Patient encounter procedure JAMILAH L. SLINGWINE [facility] Start: 02-07-2023 End: 02-08-2023 ambulatory JAYANT [facility] Start: 02-03-2023 End: 02-04-2023 ambulatory JAYANT YUAN [facility] Start: 02-03-2023 End: 02-03-2023 Subsequent hospital visit by physician Jayant Yuan MD Work Phone: [facility] Start: 02-01-2023 End: 02-01-2023 Emergency department patient visit Johny Willson [facility] Start: 01-30-2023 End: 01-30-2023 ambulatory TOMAS FARRELL Facility:[facility] Start: 01-30-2023 End: 01-30-2023 Nursing evaluation of patient and report Nurse [facility] Work Phone: Urology Comment on above: Urinary retention (P rimary Dx); Feeling of incomplete bladder emptying; Recurrent UTI Start: 01-29-2023 End: 01-29-2023 ambulatory FRANTZ CURRAN Facility:[facility] Start: 01-29-2023 End: 01-29-2023 Patient encounter procedure Frantz Curran CRANE MECHANIC.DIRECTOR EMERGENCY Work Phone: Urology Comment on above: Urinary retention (P rimary Dx); Urinary tract infection without hematuria, site unspecified; Pelvic floor dysfunction Start: 01-06-2023 End: 01-06-2023 Emergency department patient visit Chandan Adhikari [facility] Start: 01-04-2023 End: 01-04-2023 Emergency department patient visit Chandan Adhikari [facility] Start: 01-04-2023 ambulatory Radha Lara RN NURSE GUARD CAPTAIN Comment on above: Mcdonough Catheter Torres e Start: 12-29-2022 End: 12-29-2022 Emergency department patient visit Carlos Coates [facility] Start: 12-23-2022 End: 12-23-2022 Emergency department patient visit Didier Lakshmi Neva [facility] Start: 11-08-2022 End: 11-08-2022 Patient encounter procedure Patrick Anne [facility] Start: 10-18-2022 End: 10-18-2022 ambulatory LULA TREVINO . Facility:[facility] Start: 08-28-2022 End: 08-29-[address] TOMAS FARRELL Facility:[facility] Start: 06-28-2022 End: 06-28-2022 ambulatory TOMAS FARRELL [facility] Start: 06-28-2022 End: 06-28-2022 Phys/qhp telephone evaluation 11-20 min Osmar Ferreira MD Work Phone: [facility] Comment on above: Post traumatic stres s disorder (PTSD) (Primary Dx); Panic disorder with agoraphobia; Bipolar 1 disorder, manic, mild (HCC) Start: 06-24-2022 Patient encounter procedure Ike Cervantes APRN.TIMBER MANAGEMENT PROFESSOR Work Phone: [facility] Start: 06-24-2022 Progress Note Ike ESCOBAR RN.TIMBER MANAGEMENT PROFESSOR Work Phone: [facility] Department Start: 06-17-2022 Patient encounter procedure Ike Cervantes APRN.TIMBER MANAGEMENT PROFESSOR Work Phone: [facility] Start: 06-17-2022 Progress Note Ike ESCOBAR RN.TIMBER MANAGEMENT PROFESSOR Work Phone: [facility] Start: 06-12-2022 Patient encounter procedure Roxannai Brionna Gavin Work Phone: [facility] Start: 06-12-2022 Progress Note Itri A Romaine Work Phone: [facility] Start: 06-11-2022 End: 06-11-2022 ambulatory Clark Hernandez Other [facility] Other Start: 06-11-2022 Office outpatient vi sit 15 minutes Clark Hernandez [facility] Start: 06-10-2022 End: 06-10-2022 Telemedicine consultation with patient Osmar Ferreira MD Work Phone: [facility] Comment on above: Bipolar 1 disorder, manic, mild (HCC) (Primary Dx); Panic disorder with agoraphobia Start: 05-28-2022 End: 05-28-2022 Patient encounter procedure Tomas FARRELL [facility] Start: 05-25-2022 End: 06-11-2022 Evaluation and management of inpatient DO Tomas Farrell Work Phone: [facility] Work Phone: Start: 05-24-2022 End: 05-25-2022 Emergency department patient visit Santiago SKaran Harrington [facility] Start: 05-24-2022 End: 05-24-[address] TOMAS FARRELL Facility:[facility] Start: 05-09-2022 Refill Osmar Ferreira MD Work Phone: [facility] Comment on above: Panic disorder with agoraphobia Start: 05-03-2022 End: 05-03-2022 Emergency department patient visit Chandan Adhikari [facility] Start: 05-03-2022 End: 05-03-[address] TOMAS FARRELL Facility:[facility] Start: 05-02-2022 End: 05-02-2022 Emergency department patient visit Mati Taylor [facility] Start: 04-25-2022 End: 04-25-2022 Lab Drop off Tomas FARRELL [facility] Start: 04-25-2022 End: 04-25-2022 Patient encounter procedure Tomas FARRELL [facility] Start: 04-24-2022 Patient encounter procedure Ike Cervantes APRN.TIMBER MANAGEMENT PROFESSOR Work Phone: [facility] Start: 04-24-2022 Progress Note Ike ESCOBAR RN.TIMBER MANAGEMENT PROFESSOR Work Phone: [facility] Department Start: 04-22-2022 Patient encounter procedure Matthew Gavin Work Phone: [facility] Start: 04-22-2022 Progress Note Matthew Gavin Work Phone: [facility] Start: 04-17-2022 End: 04-19-2022 Evaluation and management of inpatient Tereso HATFIELD [facility] Start: 04-14-2022 End: 04-14-2022 ambulatory LULA TREVINO . Facility:[facility] Start: 04-12-2022 Refill Osmar Ferreira MD Work Phone: [facility] Comment on above: Panic disorder with agoraphobia Start: 04-10-2022 End: 04-10-[address] DOCTOR THOMSON Facility:[facility] Start: 04-10-2022 End: 04-10-2022 Emergency department patient visit Didier Martins Neva [facility] Start: 04-01-2022 Telephone encounter Quynh Hernandez MD Work Phone: Urology Comment on above: Patient Question Start: 03-28-2022 End: 03-28-2022 Lab Drop off Tomas FARRELL [facility] Start: 03-28-2022 End: 03-28-2022 Patient encounter procedure Tomas FARRELL [facility] Start: 03-27-2022 End: 03-27-2022 Patient encounter procedure Tomas FARRELL [facility] [place] Start: 03-11-2022 End: 03-11-2022 ambulatory TOMAS FARRELL [facility] Start: 03-04-2022 End: 03-04-2022 Lab Drop off Tatum Liang [facility] Start: 03-04-2022 End: 03-04-2022 Patient encounter procedure Tatum Liang [facility] Start: 02-19-2022 Refill Osmar Ferreira MD Work Phone: [facility] Comment on above: Panic disorder with agoraphobia Start: 02-18-2022 End: 02-18-[address] MACDONALD [facility] Facility:[facility] Start: 02-17-2022 End: 02-17-2022 Emergency department patient visit Didier Hooks [facility] Start: 02-15-2022 End: 02-15-2022 Emergency department patient visit Johny Willson [facility] Start: 02-13-2022 End: 02-13-2022 Emergency department patient visit Johny Willson [facility] Start: 02-11-2022 Telephone encounter Quynh Hernandez MD Work Phone: Urology Comment on above: Self Catheters/Patie nt Request Start: 02-07-2022 End: 02-07-2022 Orders Only Quynh Hernandez MD Work Phone: Urology Comment on above: Feeling of incomplet e bladder emptying (Primary Dx); Recurrent UTI Start: 02-06-2022 Chart abstracting Quynh Griffin Work Phone: [facility] Provider Adult Start: 02-03-2022 End: 02-05-2022 Evaluation and management of inpatient Jony SEE [facility] Start: 02-01-2022 End: 02-01-2022 Emergency department patient visit Mati Taylor [facility] Start: 01-31-2022 End: 01-31-2022 Emergency department patient visit Mati Taylor [facility] Start: 01-30-2022 End: 01-30-2022 Emergency department patient visit Mati Taylor [facility] Start: 01-23-2022 Telephone encounter Frantz trent APRN.DIRECTOR EMERGENCY Work Phone: Urology Comment on above: Patient Question (Lula guillen's RN calling from [facility] stating that a cysto procedure was to be done on the patient, but they have not heard anything.//Please advise.) Start: 01-22-2022 Refill Adrian [facility] Comment on above: Panic disorder with agoraphobia Start: 01-16-2022 ambulatory Suellen Borges RN NURS E GUARD CAPTAIN Comment on above: Urinary Retention Start: 01-15-2022 End: 01-15-2022 Lab Drop off JHONATAN Neil JOELGRANT [facility] Start: 01-15-2022 End: 01-15-2022 Patient encounter procedure JHONATAN Neil JOELGRANT [facility] [place] Start: 01-14-2022 End: 01-14-2022 Emergency department patient visit Chandan Adhikari [facility] Start: 01-14-2022 End: 01-14-2022 Lab Drop off Tomas FARRELL [facility] Start: 2022 End: 2022 Patient encounter procedure Frantz Curran CRANE MECHANIC.DIRECTOR EMERGENCY Work Phone: Urology Comment on above: Urinary retention (P rimary Dx); Urinary tract infection without hematuria, site unspecified; Chronic constipation Start: 12-27-2021 End: 12-27-2021 Patient encounter procedure JHONATAN Neil JOELGRANT [facility] [place] Start: 12-26-2021 End: 12-26-2021 Patient encounter procedure Rosa WOODWARD [facility] Start: 12-20-2021 End: 12-20-2021 Emergency department patient visit Didier Hooks [facility] Start: 12-16-2021 End: 12-17-2021 Observation Zeyad Sharma [facility] Start: 12-15-2021 End: 12-15-2021 Emergency department patient visit Carlos Coates [facility] Start: 12-14-2021 End: 12-14-2021 Emergency department patient visit Johny Willson [facility] Start: 12-12-2021 Telephone encounter Frantz trent CRANE MECHANIC.DIRECTOR EMERGENCY Work Phone: Urology Comment on above: Patient Update Start: 12-09-2021 End: 12-09-2021 Emergency department patient visit Johny Dueñas [facility] Start: 12-07-2021 End: 12-07-2021 Patient encounter procedure Frantz Curran APRN.DIRECTOR EMERGENCY Work Phone: Urology Comment on above: Urinary tract infect ion without hematuria, site unspecified (Primary Dx); Retention of urine; Pelvic floor dysfunction Start: 12-04-2021 End: 12-04-2021 Patient encounter procedure Frantz Elias CruzMagdy [facility]NA[facility] Work Phone: Urology Comment on above: Urinary tract infect ion without hematuria, site unspecified (Primary Dx); Feeling of incomplete bladder emptying; Pelvic pain Start: 12-03-2021 End: 12-03-[address] TIMO PRUETT . Facility: Start: 11-30-2021 End: 11-30-2021 Lab Drop off Tatum X Orzech [facility] Start: 11-30-2021 End: 11-30-2021 Patient encounter procedure Tatum X Orzech [facility] Start: 11-23-2021 End: 11-23-2021 Lab Drop off Rosalie Bush [facility] Start: 11-23-2021 End: 11-23-2021 Patient encounter procedure Rosalie Bush [facility] [place] Start: 11-21-2021 End: 11-21-2021 Emergency department patient visit Carlos Coates [facility] Start: 11-17-2021 End: 11-17-2021 Emergency department patient visit Chandan Adhikari [facility] Start: 11-16-2021 End: 11-16-2021 Emergency department patient visit Chandan Adhikari [facility] Start: 11-08-2021 End: 11-08-2021 Emergency department patient visit Didier Hooks [facility] Start: 11-07-2021 End: 11-07-2021 Patient encounter procedure Rosalie Bush [facility] [place] Start: 11-06-2021 End: 11-06-2021 Emergency department patient visit Johny Willson [facility] Start: 11-01-2021 End: 11-01-2021 Emergency department patient visit Carlos Coates [facility] Start: 10-30-2021 End: 10-30-2021 ambulatory TOMAS FARRELL [facility] Start: 10-30-2021 End: 10-30-2021 Office outpatient visit 15 minutes Upender Jhon RAMOS Work Phone: [facility] Comment on above: Bipolar 1 disorder, manic, mild (HCC) (Primary Dx); Post traumatic stress disorder (PTSD); Panic disorder with agoraphobia; Insomnia due to mental disorder Start: 10-27-2021 End: 10-27-2021 Emergency department patient visit Johny Willson [facility] Start: 10-23-2021 End: 10-23-2021 Emergency department patient visit Chandan Adhikari [facility] Start: 10-22-2021 End: 10-23-2021 Emergency department patient visit Mati Taylor [facility] Start: 10-21-2021 ambulatory Anju LEE SE GUARD CAPTAIN Comment on above: UTI Start: 10-20-2021 End: 10-20-2021 Emergency department patient visit Chandan Munoze [facility] Start: 10-14-2021 End: 10-14-2021 Emergency department patient visit Johny Duñeas [facility] Start: 10-12-2021 End: 10-12-2021 Emergency department patient visit Carlos Coates [facility] Start: 10-12-2021 End: 10-12-2021 Well adult monitoring check done Carlos Coates [facility] Start: 10-08-2021 End: 10-08-2021 Lab Drop off Dulce Roper [facility] Start: 10-04-2021 End: 10-04-2021 Emergency department patient visit DO Tomas Farrell Work Phone: [facility] Start: 10-03-2021 End: 10-04-2021 Emergency department patient visit Mati Taylor [facility] Start: 10-02-2021 ambulatory Kyler robert MD Work Phone: Urology Start: 10-01-2021 End: 10-01-2021 Emergency department patient visit Chandan Adhikari [facility] Start: 10-01-2021 End: 10-01-2021 Well adult monitoring check done Chandan Adhikari [facility] Start: 09-30-2021 End: 09-30-2021 Emergency department patient visit Didier Hooks [facility] Start: 09-26-2021 End: 09-26-2021 Lab Drop off Rosalie Bush [facility] Start: 09-26-2021 End: 09-26-2021 Patient encounter procedure Rosalie Bush [facility] Start: 09-17-2021 End: 09-17-2021 Patient encounter procedure Rosalie Bush [facility] Start: 09-17-2021 End: 09-17-2021 Emergency department patient visit Chandan Adhikari [facility] Start: 09-13-2021 ambulatory Irma Gregg RN NURSE GUARD CAPTAIN Comment on above: Urinary Retention Start: 09-13-2021 End: 09-13-2021 Lab Drop off JHONATAN APPIAH [facility] Start: 09-13-2021 End: 09-13-2021 Patient encounter procedure JHONATAN APPIAH [facility] Start: 09-08-2021 End: 09-08-2021 Emergency department patient visit DO Tomas Farrell Work Phone: [facility] Start: 09-08-2021 End: 09-08-2021 Emergency department patient visit Chandan Adhikari [facility] Start: 09-08-2021 End: 09-08-2021 Emergency department patient visit Santiago Harrington [facility] Start: 09-07-2021 End: 09-07-2021 Emergency department patient visit Santiago Harrington [facility] Start: 09-07-2021 End: 09-07-2021 Emergency department patient visit Carlos Coates [facility] Start: 09-06-2021 End: 09-06-2021 Lab Drop off Tomas FARRELL [facility] Start: 09-06-2021 End: 09-06-2021 Patient encounter procedure Tomas FARRELL [facility] [place] Start: 08-28-2021 End: 08-28-2021 Lab Drop off Rosa WOODWARD [facility] Start: 08-15-2021 End: 08-15-2021 Patient encounter procedure Rosa WOODWARD [facility] Start: 08-13-2021 Jaya Willis [facility] Comment on above: Panic disorder with agoraphobia Start: 08-07-2021 End: 08-08-2021 Emergency department patient visit DO Tomas Farrell Work Phone: [facility] Start: 07-27-2021 End: 07-27-2021 Emergency department patient visit DO Tomas Farrell Work Phone: [facility] Start: 07-22-2021 End: 07-22-2021 Emergency department patient visit DO Tomas Farrell Work Phone: [facility] Start: 07-19-2021 End: 07-19-2021 Emergency department patient visit DO Tomas Farrell Work Phone: [facility] Start: 07-17-2021 End: 07-17-2021 ambulatory UPENDER GEOT [facility] Start: 07-17-2021 End: 07-17-2021 Phys/qhp telephone evaluation 11-20 min Osmar Ferreira MD Work Phone: [facility] Comment on above: Post traumatic stres s disorder (PTSD) (Primary Dx); Bipolar 1 disorder, manic, mild (HCC); Panic disorder with agoraphobia; Insomnia due to mental disorder Start: 07-16-2021 Refill Jessica Willis [facility] Comment on above: Panic disorder with agoraphobia Start: 06-15-2021 Refill Taniya Vargas MA [facility] Comment on above: Panic disorder with agoraphobia Start: 04-16-2021 End: 04-16-2021 Phys/qhp telephone evaluation 11-20 min Osmar Ferreira MD Work Phone: [facility] Comment on above: Bipolar 1 disorder, manic, mild (HCC) (Primary Dx); Post traumatic stress disorder (PTSD); Panic disorder with agoraphobia; Insomnia due to mental disorder Start: 04-06-2021 Refill Taniya Vargas [facility] Start: 12-29-2020 End: 12-29-2020 Office outpatient visit 25 minutes Osmar Ferreira MD Work Phone: [facility] Comment on above: Bipolar 1 disorder, manic, mild (HCC) (Primary Dx); Post traumatic stress disorder (PTSD); Panic disorder with agoraphobia; Insomnia due to mental disorder Start: 09-25-2020 End: 09-25-2020 Refill Stormy Harris LPN [facility] Comment on above: Panic Disorder with Agoraphobia Start: 09-19-2020 End: 09-19-2020 Phys/qhp telephone evaluation 11-20 min Osmar Ferreira MD Work Phone: [facility] Comment on above: Bipolar 1 disorder, manic, mild (HCC) (Primary Dx); Post traumatic stress disorder (PTSD); Panic Disorder with Agoraphobia; Insomnia due to mental disorder Start: 05-01-2020 End: 05-01-2020 Phys/qhp telephone evaluation 11-20 min Osmar Ferreira Work Phone: [facility] Comment on above: Bipolar 1 disorder, manic, mild (HCC) (Primary Dx); Post traumatic stress disorder (PTSD); Panic Disorder with Agoraphobia; Insomnia due to mental disorder Start: 09-27-2017 End: 09-29-2017 Evaluation and management of inpatient JAMES CANCHOLA Facility:[facility] Procedures Date Procedure Procedure Detail Performing Clinician Start: 09-06-2023 CT of head without contrast CRANE MECHANIC Bebe Saffle Work Phone: Start: 09-06-2023 Plain chest X-ray CRANE MECHANIC Bebe Campofle Work Phone: Start: 09-06-2023 SARS-CoV-2, Influenz a & RSV (PCR) CRANE MECHANIC Bebe Campofle Work Phone: Start: 08-22-2023 Urine culture CRANE MECHANIC Trevor monte Saffle Work Phone: Start: 08-22-2023 CT of head without contrast CRANE MECHANIC Bebe Saffle Work Phone: Start: 07-05-2023 CT of head without contrast CRANE MECHANIC Bebe Saffle Work Phone: Start: 07-05-2023 Plain chest X-ray CRANE MECHANIC Bebe Mccabee Work Phone: Start: 07-05-2023 Urine culture CRANE MECHANIC Trevor monte Saffle Work Phone: Start: 02-03-2023 Basic metabolic pane l calcium total Monse Faggionato CRANE MECHANIC - SOLE CUTTER Work Phone: Start: 05-27-2022 CT of head without contrast DO Tomas Farrell Work Phone: Start: 12-04-2021 Culture bacterial quanttative colony count urine Frantz Curran CRANE MECHANIC.DIRECTOR EMERGENCY Work Phone: Start: 10-02-2021 Urnls dip stick/tabl et rgnt auto w/o microscopy Bulk Order Provider Start: 09-08-2021 Urine culture DO Niranjan Farrell Work Phone: Start: 08-07-2021 Computed tomography of abdomen and pelvis with contrast DO Tomas Farrell Work Phone: Start: 08-07-2021 Urine culture DO Niranjan Farrell Work Phone: Start: 07-27-2021 Urine culture DO Niranjan Farrell Work Phone: Start: 07-22-2021 Urine culture DO Niranjan Farrell Work Phone: Start: 07-19-2021 Urine culture DO Niranjan Farrell Work Phone: Start: 07-06-2019 Urodynamic studies Vesta WOODWARD Start: 07-05-2019 cysto w/ UD Rosa Barker Start: 10-04-2016 left femur ORIF w fe moral cortical strut graft Rosa WOODWARD Start: 08-30-2016 lt bipolar hemiarthroplasty Rosa WOODWARD Appendectomy Rosa WOODWARD Cardiovascular stres s test using pharmacologic stress agent Rosa WOODWARD Cataract Surgery-Jack ateral Eye Rosa WOODWARD section Rosa WOODWARD Comment on above: x3 x3 foot surgery right Rosa CHERY AM I&D 2 Rosa WOODWARD Comment on above: pt states multiple t imes pt states multiple t imes muscle removed 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 Rosa WOODWARD Open insertion of Br oviac central venous catheter Rosa WOODWARD Pain management medi cation delivery system pump (physical object) Rosa WOODWARD right leg surgery 3 Rosa ALEMAN Comment on above: multiple surgeries t o Right leg including: plate, external fixator, gen insertion, graft multiple surgeries t o Right leg including: plate, external fixator, gen insertion, graft Plan of Treatment Date Care Activity Detail Author Start: 05-24-2032 Tetanus vaccination Tetanus: Every 1 0yrs [facility] Start: 06-19-2029 Tetanus vaccination Tetanus: Every 1 0yrs [facility] Start: 01-31-2024 BP CONTROLLED (<130/80) BP CONTROLLE D (<130/80) [facility] Start: 09-06-2023 Referral to [facility] Start: 09-02-2023 [facility] Start: 08-28-2023 Administration of prophylactic treatment [facility] Start: 08-27-2023 Referral to [facility] Start: 08-27-2023 Hospital admission [facility] Start: 08-22-2023 Bacteria identified in Urine by Culture [facility] Start: 07-05-2023 Bacteria identified in Urine by Culture [facility] Start: 02-07-2023 BP CONTROLLED (<130/80) BP CONTROLLE D (<130/80) [facility] Start: 01-24-2023 Influenza vaccination INFLUENZA (#1) [facility] Start: 2023 BP CONTROLLED (<130/80) BP CONTROLLE D (<130/80) [facility] Start: 12-24-2022 Influenza vaccination Flu vaccine (# 1) [facility] Start: 12-07-2022 BP CONTROLLED (<130/80) BP CONTROLLE D (<130/80) [facility] Start: 06-11-2022 [facility] Start: 06-10-2022 End: 06-10-2022 Telemedicine consultation with patient 06/10/2022 Telemedicine Telephone Psychiatry Osmar Ferreira MD [facility] [place] [address] [facility] Start: 06-09-2022 Urine culture Urine Culture [facility] Start: 06-03-2022 Referral to painter and body mechanic apprentice [facility] Start: 05-27-2022 Administration of prophylactic treatment [facility] Start: 05-26-2022 ADVANCE DIRECTIVE DISCUSSION ADVANCE DIRECTIVE DISCUSSION [facility] Start: 05-25-2022 Referral to Station Mechanic Apprentice [facility] Start: 05-25-2022 Hospital admission [facility] Start: 03-05-2022 End: 03-05-2022 Patient encounter procedure 03/05/2022 Office Visit Osmar Fernandes MD [address] [facility] [address] [place] [id number] [facility] Start: 02-01-2022 End: 02-01-2022 Patient encounter procedure 02/01/2022 Office Visit Osmar Fernandes MD [address] [facility] [address] [place] [id number] [facility] Start: 01-24-2022 Influenza vaccination [facility] Start: 10-15-2021 End: 10-15-2021 Patient encounter procedure 10/15/2021 Office Visit Osmar Fernandes MD [address] [facility] [address] [place] [id number] [facility] Start: 09-03-2021 COVID-19 VACCINE (4 - Booster for Moderna series) COVID-19 VACCINE (4 - Booster for Moderna series) [facility] Start: 07-20-2021 End: 07-20-2021 Patient encounter procedure 07/20/2021 Office Visit Osmar Fernandes MD [address] [facility] [address] [place] [id number] [facility] Start: 07-17-2021 End: 07-17-2021 Patient encounter procedure 07/17/2021 Office Visit Osmar Fernandes MD [address] [facility] [address] [place] [id number] [facility] Start: 06-30-2021 COVID-19 VACCINE (4 - Booster for Moderna series) COVID-19 VACCINE (4 - Booster for Moderna series) [facility] Start: 06-30-2021 COVID-19 VACCINE (4 - Moderna series) COVID-19 VACCINE (4 - Moderna series) [facility] Start: 05-26-2021 ADVANCE DIRECTIVE DISCUSSION ADVANCE DIRECTIVE DISCUSSION [facility] Start: 05-26-2021 COVID-19 VACCINE (2 - Pfizer series) COVID-19 VACCINE (2 - Pfizer series) [facility] Start: 04-13-2021 End: 04-13-2021 Patient encounter procedure 04/13/2021 Office Visit Psychiatry Osmar Ferreira MD [address] [place] [address] [facility] Start: 03-17-2021 COVID-19 Vaccine (3 - Booster for Moderna series) COVID-19 Vaccine (3 - Booster for Moderna series) [facility] Start: 02-15-2021 COVID-19 Vaccine (3 - Booster for Moderna series) COVID-19 Vaccine (3 - Booster for Moderna series) [facility] Start: 01-24-2021 Influenza vaccination Sequenti al Influenza Vaccine (#1) [facility] Start: 11-10-2020 COVID-19 Vaccine (3 - Booster for Moderna series) COVID-19 Vaccine (3 - Booster for Moderna series) [facility] Start: 08-29-2015 LIPID SCREEN LIPID SCREEN [facility] Start: 09-03-2013 DIABETES SCREEN DIABETES SCREEN [facility] Start: 01-07-2013 BONE DENSITY BONE DENSITY [facility] Start: 01-07-2013 Fall risk assessment Falls Risk Asse ssment [facility] Start: 01-07-2013 PNEUMOCOCCAL: 65+ (1 - PCV) PNEUMOCOCCAL: 65+ (1 - PCV) [facility] Start: 01-07-2013 PNEUMOVAX AGE 65 AND OVER WITH 5YR LOOKBACK (#1) PNEUMOVAX AGE 65 AND OVER WITH 5YR LOOKBACK (#1) [facility] Start: 01-07-1998 Screening for malign ant neoplasm of colon [facility] Start: 01-07-1998 SHINGRIX VACCINE (1 of 2) SHINGRIX VACCINE (1 of 2) [facility] Start: 01-07-1993 COLOGUARD (FIT-DNA) COLOGUARD (FIT-D NA) [facility] Start: 01-07-1993 Colonoscopy COLONOSCOPY [facility] Start: 01-07-1993 COLORECTAL CANCER SCREENING COLORECTAL CANCER SCREENING [facility] Start: 01-07-[address] COLONOGRAPHY [facility] Start: 01-07-1993 FECAL OCCULT BLOOD FECAL OCCULT BLOO D [facility] Start: 01-07-1993 SIGMOIDOSCOPY SIGMOIDOSCOPY [facility] Start: 1988 Mammography MAMMOGRAM [facility] Start: 1988 Screening for malign ant neoplasm of breast Mammogram [facility] Start: 01-07-1967 DTaP/Tdap/Td vaccine (1 - Tdap) DTaP/Tdap/Td vaccine (1 - Tdap) [facility] [employer] [facility] Start: 01-07-1967 Urine microalbumin profile DTAP,TDAP,TD (1 - Tdap) [facility] Start: 01-07-1966 ANNUAL PCP TEAM GETTER FILLER JADYN DISEASE VISIT ANNUAL PCP TEAM CHRONIC DISEASE VISIT [facility] Start: 01-07-1966 BP CONTROLLED (<130/80) BP CONTROLLE D (<130/80) [facility] Start: 01-07-1966 Hepatitis C antibody , confirmatory test Hepatitis C Screening [facility] Start: 01-07-1966 Hepatitis C screening Hepatitis C [facility] Start: 01-07-1966 HEPATITIS C SCREENING HEPATITIS C [facility] Start: 1964 COVID-19 Vaccine (1) COVID-19 Vaccin e (1) [facility] Start: 1960 Adolescent depressio n screening assessment Depression Screening (PHQ9) [facility] Start: 1960 COVID-19 Vaccine (1) COVID-19 Vaccin e (1) [facility] Start: 01-07-1953 COVID-19 VACCINE (1) COVID-19 VACCIN E (1) [facility] Start: 01-07-1951 History and physical examination, annual for health maintenance Wellness Visit [facility] Start: 1948 COVID-19 Vaccine (#1) COVID-19 Vacci ne (#1) [employer] Start: 1948 Fall risk assessment Falls Risk Asse ssment [facility] Start: 1948 Screening for malign ant neoplasm of colon [facility] Start: 1948 Screening for osteoporosis Dexa Scan [facility] Start: 1948 Screening mammography Mammogram [facility] End: 02-03-2023 Basic metabolic 2000 panel - Serum or Plasma [facility] Work Phone: Comment on above: Once for 1 Occurrenc es starting 02/03/2023 until 02/03/2023 Patient Education [facility] Work Phone: Patient referral [facility] Work Phone: [facility] Immunizations Immunization Date Immunization Notes Care Provider Antonio bello 05-24-2022 tetanus toxoid, redu rita diphtheria toxoid, and acellular pertussis vaccine, adsorbed Santiago Harrington [facility] 03-20-2022 influenza virus vaccine, unspecified formulation Tomas FARRELL [facility] 05-05-2021 SARS-CoV-2 (COVID-19 ) mRNA BNT-162b2 vax Tomas FARRELL [facility] 03-20-2021 influenza, injectabl e, quadrivalent, preservative free Rosa WOODWARD [facility] 02-23-2021 influenza virus vaccine, unspecified formulation Rosa WOODWARD [facility] 09-15-2020 SARS-CoV-2 (COVID-19 ) mRNA-1273 vaccine Dulcenusrat Roper [facility] 08-18-2020 SARS-CoV-2 (COVID-19 ) mRNA-1273 vaccine Dulcenusrat Roper [facility] 02-25-2020 influenza virus vaccine, unspecified formulation Dulcenusrat Roper [facility] 06-19-2019 tetanus toxoid, redu rita diphtheria toxoid, and acellular pertussis vaccine, adsorbed; Translations: [Adacel (Tdap)] Rosa WOODWARD [facility] 02-25-2019 influenza virus vaccine, unspecified formulation Dulce Roper [facility] 01-24-2019 influenza virus vaccine, unspecified formulation Lee SALAM [facility] 06-25-2018 zoster vaccine recombinant Dulce Roper [facility] 01-16-2018 influenza virus vaccine, unspecified formulation Dulce Roper [facility] 09-10-2017 zoster vaccine recombinant Dulce Roper [facility] 07-25-2017 pneumococcal polysaccharide vaccine, 23 valent Lee SALAM [facility] 01-18-2017 influenza virus vaccine, unspecified formulation Dulce Roper [facility] 04-01-2016 pneumococcal conjuga te vaccine, 13 valent Lee SALAM [facility] 02-04-2016 influenza virus vaccine, unspecified formulation Dulce Roper [facility] 02-17-2015 influenza virus vaccine, unspecified formulation Dulce Roper [facility] 06-29-2014 zoster vaccine, live Dulce Roper [facility] 03-22-2013 pneumococcal polysaccharide vaccine, 23 valent Lee SALAM [facility] 01-27-2010 tetanus toxoid, redu rita diphtheria toxoid, and acellular pertussis vaccine, adsorbed Lee SALAM [facility] NEGATED: Highlighted row has not occurred!03-04-2022 influenza virus vaccine, unspecified formulation Tatum Orzech [facility] NEGATED: Highlighted row has not occurred!03-04-2022 SARS-CoV-2 mRNA (tozinameran 5y-11y) vaccine Tatum Orzech [facility] Payers Date Payer Category Payer Unknown 2021 Medicare UHC MEDICARE UHC DUAL COMPLETE HMO SNP [id number] 2021-Present [phone] [address] [place] [address] Medicare [id number] 2019 Medicaid [id number] 2019 Medicaid [id number] 2017 Medicare [id number] 2015 Unknown ANTHEM BCBS OUT OF STATE [facility] [id number] 2015-Present [id number] 2012 Unknown AARP AARP [facility] [id number] 2012-Present [id number] 2003 Medicare MEDICARE MEDICAR E PART A & B [id number] 2003-Present [place] [id number] 2003 Medicare [id number] 2003 Medicare [id number]. [id number] 2003 Medicare [id number] 1959 Medicaid [id number] 1959 Self-pay [id number] 1948 Unknown [id number] [id number]. 903 1948 Unknown [id number] 2.16.840.1.535641.3.579.2. 903 1948 Unknown [id number] 2.16.840.1.533558.3.579.2. 903 1948 Unknown [id number] 2.16.840.1.060684.3.579.2. 903 1948 Unknown [id number] 2.16.840.1.766163.3.579.2. 593 1948 Unknown [id number] 2.16.840.1.948967.3.579.2. 593 1948 Unknown [id number] 2.16.840.1.760639.3.579.2. 593 1948 Unknown [id number] 2.16.840.1.517434.3.579.2. 593 1948 Unknown [id number] 2.16.840.1.855208.3.579.2. 593 1948 Unknown [id number] 2.16.840.1.217618.3.579.2. 593 1948 Unknown [id number] 2.16.840.1.135506.3.579.2. 593 1948 Unknown [id number] 2.16.840.1.109272.3.579.2. 727 1948 Unknown [id number] 2.16.840.1.390212.3.579.2. 727 1948 Unknown [id number] 2.16.840.1.582113.3.579.2. 727 1948 Unknown [id number] 2.16.840.1.041928.3.579.2. 727 8 Unknown [id number] 2.16.840.1.665639.3.579.2. 1950 Unknown [id number] 2.16.840.1.021768.3.579.2 1948 Unknown [id number] 2.16.840.1.757191.3.579.2. 1948 Unknown [id number] 2.16.840.1.303278.3.579.2 1948 Unknown [id number] 2.16.840.1.426282.3.579.2 1948 Unknown [id number] 2.16.840.1.431561.3.579.2 1948 Unknown [id number] 2.840.1.636958.3.579.2 1948 Unknown [id number] 2.16.840.1.563186.3.579.2 1948 Unknown [id number] 2.16.840.1.813613.3.579.2 1948 Unknown [id number] 2..840.1.548827.3.579.2 1948 Unknown [id number] 2.840.1.172089.3.579.2 1948 Unknown [id number] 2.16.840.1.342049.3.579.2 1948 Unknown [id number] 2.16.840.1.560090.3.579.2 1948 Unknown [id number] 2.16.840.1.993605.3.579.2 1948 Unknown [id number] 2.16.840.1.076002.3.579.2 1948 Unknown [id number] 2.16.840.1.782287.3.579.2. 727 1948 Unknown [id number] 2.16.840.1.040117.3.579.2. 72 1948 Unknown [id number] 2.16.840.1.644808.3.579.2. 72 1948 Unknown [id number] 2.16.840.1.546785.3.579.2. 72 1948 Unknown [id number] 2.16.840.1.729250.3.579.2. 72 1948 Unknown [id number] 2..840.1.998878.3.579.2. 1258 1948 Unknown [id number] 2..840.1.954650.3.579.2. 1258 1948 Unknown [id number] 2.840.1.566888.3.579.2. 1948 Unknown [id number] 2..840.1.076297.3.579.2. 72 1948 Unknown [id number] 2..840.1.496927.3.579.2. Medicare [id number] Private Health Insurance [facility] Dual Compl [id number] Unknown [place] [employer] [id number] Unknown [facility] Health Claims [id number] Unknown [id number] 2.840.1.302330.3.579.2. 593 Unknown [id number] 2.840.1.947760.3.579.2. 531 Unknown [id number] 2.840.1.667354.3.579.2. 531 Unknown [id number] 2.840.1.819957.3.579.2. 531 Unknown [id number] 2.16.840.1.551075.3.579.2. 531 Unknown [id number] 2.16.840.1.672631.3.579.2. 531 Social History Date Type Detail Facility Start: 05-01-2020 End: 01-02-2024 Tobacco smoking status NHIS Never smoker [facility] Comment on above: son smokes Start: 09-16-2013 End: 05-01-2020 Tobacco use and exposure Never used [facility] Start: 05-01-2020 End: 06-28-2022 Alcohol intake Ex-drinker (finding) [facility] Start: 1950 Sex Assigned At Not on file [facility] Start: 07-07-2021 End: 07-17-2021 Exposure to SARS-CoV-2 (event) Unable to assess [facility] Start: 09-03-2021 End: 02-07-2022 Exposure to SARS-CoV-2 (event) Not sure [facility] Tobacco smoking status Never [facility] Comment on above: son smokes Start: 09-13-2012 End: 02-07-2022 Sex Assigned At Female [facility] Start: 01-18-2020 End: 01-30-2023 Alcohol intake Current non-drinker of alcohol (finding) [facility] Start: 1950 Sex Assigned At Female F [facility] Tobacco [facility] Comment on above: denies denies Start: 09-13-2012 End: 05-01-2020 Cigarette pack-years [facility] Start: 07-05-2023 Tobacco smoking stat [facility] Tobacco smoking consumption unknown [facility] Tobacco smoking status No Smokin g Status Entered [facility] Goals Date Patient Goal Desired Activity /State Functional Status Date Assessment Result Facility 01-28-2024 Functional Status N/A [facility] 01-10-2024 Functional Status N/A [facility] 01-02-2024 Functional Status N/A [facility] 09-07-2023 Functional Status No [facility] 09-07-2023 Functional Status [facility] 09-02-2023 Functional status Patient at Baseline [facility] Work Phone: 08-27-2023 Functional Status N/A [facility] 08-21-2023 Functional Status N/A [facility] 08-14-2023 Functional Status N/A [facility] 08-13-2023 Functional Status N/A [facility] 08-12-2023 Functional Status N/A [facility] 08-09-2023 Functional Status N/A [facility] 08-07-2023 Functional Status N/A [facility] 05-26-2023 Functional Status N/A [facility] 02-01-2023 Functional Status N/A [facility] 01-06-2023 Functional Status N/A [facility] 01-04-2023 Functional Status N/A [facility] 12-29-2022 Functional Status N/A [facility] 12-23-2022 Functional Status N/A [facility] 06-11-2022 Functional status Patient at Baseline [facility] Work Phone: 05-24-2022 Functional Status N/A [facility] 05-03-2022 Functional Status N/A [facility] 05-02-2022 Functional Status N/A [facility] 04-25-2022 Functional Status N/A [facility] 04-17-2022 Functional Status Yes [facility] 04-17-2022 Functional Status [facility] 03-04-2022 Functional Status N/A [facility] 02-17-2022 Functional Status N/A [facility] 02-15-2022 Functional Status N/A [facility] 02-13-2022 Functional Status N/A [facility] 02-03-2022 Functional Status No [facility] 02-01-2022 Functional Status N/A [facility] 01-31-2022 Functional Status N/A [facility] 01-30-2022 Functional Status N/A [facility] 01-15-2022 Functional Status N/A [facility] 01-14-2022 N/A [facility] 12-20-2021 Functional Status N/A [facility] 12-16-2021 Functional Status N/A [facility] 12-16-2021 Functional Status [facility] 12-15-2021 Functional Status N/A [facility] 12-14-2021 Functional Status N/A [facility] 12-09-2021 Functional Status N/A [facility] 11-30-2021 Functional Status N/A [facility] 11-23-2021 Functional Status N/A [facility] 11-21-2021 Functional Status N/A [facility] 11-17-2021 Functional Status N/A [facility] 11-16-2021 Functional Status N/A [facility] 11-08-2021 Functional Status N/A [facility] 11-07-2021 Functional Status N/A [facility] 11-06-2021 Functional Status N/A [facility] Mental Status Date Assessment Result Facility 09-02-2023 Cognitive function Cognitive Sta tus Patient at Baseline [facility] Work Phone: 06-11-2022 Cognitive function Cognitive Sta tus Patient at Baseline [facility] Work Phone: Clinical Notes 09-29-2020 to 01-11-2024 Note Date & Type Note Facility 01-11-2024 Hospital Discharg e instructions Patient Education 01/10/2024 22:20:27 Radial Fracture Radial Fracture A radial fracture is a break in the radius bone. The radius is a bone in the forearm, on the same side as the thumb. The forearm is the part of the arm that is between the elbow and the wrist. A radial fracture near the wrist (distal radialfracture) is the most common type of broken arm. A fracture can also occur near the elbow (radial head fracture). What are the causes? The most common cause of a radial fracture is falling with the arm outstretched. Other causes include: An accident, such as a car or bike accident. A hard, direct hit to the forearm. What increases the risk? You may be at greater risk for a radial fracture if you: Are female. Are an older adult. Play contact sports. Have a condition that causes your bones to become thin and brittle (osteoporosis). What are the signs or symptoms? A radial fracture causes pain immediately after the injury. Other signs and symptoms may include: An abnormal bend or bump in the arm (deformity). Swelling. Tenderness. Bruising. Numbness or tingling in your arm and hand. Limited movement of your arm and hand. Pain when trying to move your wrist, hand, or elbow. How is this diagnosed? This condition may be diagnosed based on: Your symptoms and medical history. A physical exam. An X-ray. How is this treated? Treatment depends on how severe your fracture is, where it is, and how the pieces of the broken bone line up with each other (alignment). Initially, you may need to wear a temporary splint to stabilize the injury for a few days until your swelling goes down. After the swelling goes down, you may get a cast, get a different type of splint, or have surgery. If your broken bone is not aligned (displaced) or significantly involves other joints (intra-articular fracture), your health care provider will need to align the bone pieces. To align your broken bone, your health care provider may: ?Move the bones back into position without surgery (closed reduction). ?Perform surgery to align the fracture and fix the bone pieces into place with metal screws, plates, or wires (open reduction and internal fixation). ?Perform surgery to align the fracture and fix the bone pieces into place with pins that are attached to a stabilizing bar outside your skin (external fixation). If there is a cut (laceration) in the skin over the fracture, this may indicate a compound fracture. You may need to take antibiotic medicines and have surgery to clean out the wound and prevent infection of the bones. Treatment may also include: Wearing a splint or cast. This keeps your wrist in place (immobilizes) and allows the fractured bone to heal properly. Having your cast changed after 2 3 weeks. Physical therapy exercises to improve movement and strength in your arm. Follow-up visits and X-rays to make sure you are healing. Follow these instructions at home: If you have a removable splint: Wear the splint as told by your health care provider. Remove it only as told by your health care provider. Check the skin around the splint every day. Tell your health care provider about any concerns. Loosen the splint if your fingers tingle, become numb, or turn cold and blue. Keep the splint clean and dry. If you have a nonremovable cast or splint: Do not put pressure on any part of the cast or splint until it is fully hardened. This may take several hours. Do not stick anything inside the cast or splint to scratch your skin. Doing that increases your risk of infection. Check the skin around the cast or splint every day. Tell your health care provider about any concerns. You may put lotion on dry skin around the edges of the cast or splint. Do not put lotion on the skin underneath the cast or splint. Keep it clean and dry. Bathing Do not take baths, swim, or use a hot tub until your health care provider approves. Ask your health care provider if you may take showers. You may only be allowed to take sponge baths. If your splint or cast is not waterproof: ?Do not let it get wet. ?Cover it with a watertight covering when you take a bath or a shower. Managing pain, stiffness, and swelling If directed, put ice on the painful area. To do this: ?If you have a removable splint, remove it as told by your health care provider. ?Put ice in a plastic bag. ?Place a towel between your skin and the bag, or between your cast or splint and the bag. ?Leave the ice on for 20 minutes, 2 3 times a day. ?Remove the ice if your skin turns bright red. This is very important. If you cannot feel pain, heat, or cold, you have a greater risk of damage to the area. Move your fingers often to reduce stiffness and swelling. Raise (elevate) your arm above the level of your heart while you are sitting or lying down. Activity Do not lift anything with your injured arm. Do not use the injured arm to support your body weight until your health care provider says that you can. Ask your health care provider what activities are safe for you and what activities you should avoid while you heal. Do exercises as told by your health care provider or physical therapist. Driving Ask your health care provider: If the medicine prescribed to you requires you to avoid driving or using machinery. When it is safe to drive if you have a splint or cast on your arm. General instructions Take kukx-mvx-yudwhrj and prescription medicines only as told by your health care provider. If you were prescribed an antibiotic medicine, take it as told by your health care provider. Do not stop using the antibiotic even if you start to feel better. Do not use any products that contain nicotine or tobacco. These products include cigarettes, chewing tobacco, and vaping devices, such as e-cigarettes. These can delay bone healing. If you need help quitting, ask your health care provider. Keep all follow-up visits. This is important. Contact a health care provider if you have: Pain that does not get better with medicine. Swelling that gets worse. A bad smell coming from your cast. Get help right away if: You cannot move your fingers. You have severe pain, especially if the pain changes significantly or suddenly. Your fingers or your hand: ?Become numb, cold, or pale. ?Turn a bluish color. Summary A radial fracture is a break in the radius bone. The most common cause is falling on an outstretched hand. Treatment depends on how severe your fracture is, where it is, and how the pieces of the broken bone line up with each other. A splint or cast may be needed to help the fracture heal. A more severe fracture may require surgery. This information is not intended to replace advice given to you by your health care provider. Make sure you discuss any questions you have with your health care provider. Document Revised: 08/29/2021 Document Reviewed: 08/29/2021 [employer] Patient Education 2022 [employer]. Follow Up Care 01/10/2024 20:33:47 With:Kye Barrientos Address: [address] [place] [phone]- Business (1) When:01/13/2024 21:59:27 With:AZUL BATEMAN Address: [place] [address]- Business (1) When:Within 3 Day(s) [facility] 01-10-2024 Note ED Patient Education Note Orthopedics Radial Fracture A radial fracture is a break in the radius bone. The radius is a bone in the forearm, on the same side as the thumb. The forearm is the part of the arm that is between the elbow and the wrist. A radial fracture near the wrist (distal radialfracture) is the most common type of broken arm. A fracture can also occur near the elbow (radial head fracture). What are the causes? The most common cause of a radial fracture is falling with the arm outstretched. Other causes include: ? An accident, such as a car or bike accident. ? A hard, direct hit to the forearm. What increases the risk? You may be at greater risk for a radial fracture if you: ? Are female. ? Are an older adult. ? Play contact sports. ? Have a condition that causes your bones to become thin and brittle (osteoporosis). What are the signs or symptoms? A radial fracture causes pain immediately after the injury. Other signs and symptoms may include: ? An abnormal bend or bump in the arm (deformity). ? Swelling. ? Tenderness. ? Bruising. ? Numbness or tingling in your arm and hand. ? Limited movement of your arm and hand. ? Pain when trying to move your wrist, hand, or elbow. How is this diagnosed? This condition may be diagnosed based on: ? Your symptoms and medical history. ? A physical exam. ? An X-ray. How is this treated? Treatment depends on how severe your fracture is, where it is, and how the pieces of the broken bone line up with each other (alignment). ? Initially, you may need to wear a temporary splint to stabilize the injury for a few days until your swelling goes down. After the swelling goes down, you may get a cast, get a different type of splint, or have surgery. ? If your broken bone is not aligned (displaced) or significantly involves other joints (intra-articular fracture), your health care provider will need to align the bone pieces. To align your broken bone, your health care provider may: ? Move the bones back into position without surgery (closed reduction). ? Perform surgery to align the fracture and fix the bone pieces into place with metal screws, plates, or wires (open reduction and internal fixation). ? Perform surgery to align the fracture and fix the bone pieces into place with pins that are attached to a stabilizing bar outside your skin (external fixation). ? If there is a cut (laceration) in the skin over the fracture, this may indicate a compound fracture. You may need to take antibiotic medicines and have surgery to clean out the wound and prevent infection of the bones. Treatment may also include: ? Wearing a splint or cast. This keeps your wrist in place (immobilizes) and allows the fractured bone to heal properly. ? Having your cast changed after 2?3 weeks. ? Physical therapy exercises to improve movement and strength in your arm. ? Follow-up visits and X-rays to make sure you are healing. Follow these instructions at home: If you have a removable splint: ? Wear the splint as told by your health care provider. Remove it only as told by your health care provider. ? Check the skin around the splint every day. Tell your health care provider about any concerns. ? Loosen the splint if your fingers tingle, become numb, or turn cold and blue. ? Keep the splint clean and dry. If you have a nonremovable cast or splint: ? Do not put pressure on any part of the cast or splint until it is fully hardened. This may take several hours. ? Do not stick anything inside the cast or splint to scratch your skin. Doing that increases your risk of infection. ? Check the skin around the cast or splint every day. Tell your health care provider about any concerns. ? You may put lotion on dry skin around the edges of the cast or splint. Do not put lotion on the skin underneath the cast or splint. ? Keep it clean and dry. Bathing ? Do not take baths, swim, or use a hot tub until your health care provider approves. Ask your health care provider if you may take showers. You may only be allowed to take sponge baths. ? If your splint or cast is not waterproof: ? Do not let it get wet. ? Cover it with a watertight covering when you take a bath or a shower. Managing pain, stiffness, and swelling ? If directed, put ice on the painful area. To do this: ? If you have a removable splint, remove it as told by your health care provider. ? Put ice in a plastic bag. ? Place a towel between your skin and the bag, or between your cast or splint and the bag. ? Leave the ice on for 20 minutes, 2?3 times a day. ? Remove the ice if your skin turns bright red. This is very important. If you cannot feel pain, heat, or cold, you have a greater risk of damage to the area. ? Move your fingers often to reduce stiffness and swelling. ? Raise (elevate) your arm above the level of your heart while you are sitting (more content not included)... [facility] 01-10-2024 Evaluation + Plan note Extrac kenyatta from: Title:ED Note Author:Fredy BYRD, Jose Bray te:01/10/24 Distal radius fracture (S52. 509A: Unspecified fracture of the lower end of unspecified radius, initial encounter for closed fracture) Left wrist pain (M25.532: Pain in left wrist) Orders: acetaminophen-oxycodone, 1 tab(s), Tab, Oral, Once, Stop date 01/10/24 21:54:00 EDT, STAT, Start date 01/10/24 21:54:00 EDT acetaminophen-oxycodone, 1 tab(s), Oral, q6hr for 3 day(s), 12 tab(s), Refill(s) 0, [id number], 162, cm, 01/10/24 20:56:00 EDT, Height/Length Dosing, 61, kg, 01/10/24 20:56:00 EDT, Weight Dosing [facility] 08-09-2024 Evaluation + Plan note Diagnostic Tests Pending * Urine Culture 01/02/24 [facility] 08-09-2024 Hospital Discharge instructions Patient Education 01/02/2024 11:45:27 Managing Your Hypertension Managing Your Hypertension Hypertension, also called high blood pressure, is when the force of the blood pressing against the dunbar of the arteries is too strong. Arteries are blood vessels that carry blood from your heart throughout your body. Hypertension forces the heart to work harder to pump blood and may cause the arteries to become narrow or stiff. Understanding blood pressure readings A blood pressure reading includes a higher number over a lower number: The first, or top, number is called the systolic pressure. It is a measure of the pressure in your arteries as your heart beats. The second, or bottom number, is called the diastolic pressure. It is a measure of the pressure in your arteries as the heart relaxes. For most people, a normal blood pressure is below 120/80. Your personal target blood pressure may vary depending on your medical conditions, your age, and other factors. Blood pressure is classified into four stages. Based on your blood pressure reading, your health care provider may use the following stages to determine what type of treatment you need, if any. Systolic pressure and diastolic pressure are measured in a unit called millimeters of mercury (mmHg). Normal Systolic pressure: below 120. Diastolic pressure: below 80. Elevated Systolic pressure: 120 129. Diastolic pressure: below 80. Hypertension stage 1 Systolic pressure: 130 139. Diastolic pressure: 80 89. Hypertension stage 2 Systolic pressure: 140 or above. Diastolic pressure: 90 or above. How can this condition affect me? Managing your hypertension is very important. Over time, hypertension can damage the arteries and decrease blood flow to parts of the body, including the brain, heart, and kidneys. Having untreated or uncontrolled hypertension can lead to: A heart attack. A stroke. A weakened blood vessel (aneurysm). Heart failure. Kidney damage. Eye damage. Memory and concentration problems. Vascular dementia. What actions can I take to manage this condition? Hypertension can be managed by making lifestyle changes and possibly by taking medicines. Your health care provider will help you make a plan to bring your blood pressure within a normal range. You may be referred for counseling on a healthy diet and physical activity. Nutrition Eat a diet that is high in fiber and potassium, and low in salt (sodium), added sugar, and fat. An example eating plan is called the DASH diet. DASH stands for Dietary Approaches to Stop Hypertension. To eat this way: ?Eat plenty of fresh fruits and vegetables. Try to fill one-half of your plate at each meal with fruits and vegetables. ?Eat whole grains, such as whole-wheat pasta, brown rice, or whole-grain bread. Fill about one-fourth of your plate with whole grains. ?Eat low-fat dairy products. ?Avoid fatty cuts of meat, processed or cured meats, and poultry with skin. Fill about one-fourth of your plate with lean proteins such as fish, chicken without skin, beans, eggs, and tofu. ?Avoid pre-made and processed foods. These tend to be higher in sodium, added sugar, and fat. Reduce your daily sodium intake. Many people with hypertension should eat less than 1,500 mg of sodium a day. Lifestyle Work with your health care provider to maintain a healthy body weight or to lose weight. Ask what an ideal weight is for you. Get at least 30 minutes of exercise that causes your heart to beat faster (aerobic exercise) most days of the week. Activities may include walking, swimming, or biking. Include exercise to strengthen your muscles (resistance exercise), such as weight lifting, as part of your weekly exercise routine. Try to do these types of exercises for 30 minutes at least 3 days aweek. Do not use any products that contain nicotine or tobacco. These products include cigarettes, chewing tobacco, and vaping devices, such as e-cigarettes. If you need help quitting, ask your health careprovider. Control any long-term (chronic) conditions you have, such as high cholesterol or diabetes. Identify your sources of stress and find ways to manage stress. This may include meditation, deep breathing, or making time for fun activities. Alcohol use Do not drink alcohol if: ?Your health care provider tells you not to drink. ?You are , may be , or are planning to become . If you drink alcohol: ?Limit how much you have to: ?0 1 drink a day for women. ?0 2 drinks a day for men. ?Know how much alcohol is in your drink. In the [place] one drink equals one 12 oz bottle of beer (355 mL), one 5 oz glass of wine (148 mL), or one 1 oz glass of hard liquor (44 mL). Medicines Your health care provider may prescribe medicine if lifestyle changes are not enough to get your blood pressure under control and if: Your systolic blood pressure is 130 or higher. Your diastolic blood pressure is 80 or higher. Take medicines only as told by your health care provider. Follow the directions carefully. Blood pressure medicines must be taken as told by your health care provider. The medicine does not work as well when you skip doses. Skipping doses also puts you at risk for problems. Monitoring Before you monitor your blood pressure: Do not smoke, drink caffeinated beverages, or exercise within 30 minutes before taking a measurement. Use the bathroom and empty your bladder (urinate). Sit quietly for at least 5 minutes before taking measurements. Monitor your blood pressure at home as told by your health care provider. To do this: Sit with your back straight and supported. Place your feet flat on the floor. Do not cross your legs. Support your arm on a flat surface, such as a table. Make sure your upper arm is at heart level. Each time you measure, take two or three readings one minute apart and record the results. You may also need to have your blood pressure checked regularly by your health care provider. General information Talk with your health care provider about your diet, exercise habits, and other lifestyle factors that may be contributing to hypertension. Review all the medicines you take with your health care provider because there may be side effects or interactions. Keep all follow-up visits. Your health care provider can help you create and adjust your plan for managing your high blood pressure. Where to find more information National Heart, Lung, and Blood [place]: www.nhlbi.nih.gov [place] [employer]: www.heart.org Contact a health care provider if: You think you are having a reaction to medicines you have taken. You have repeated (recurrent) headaches. You feel dizzy. You have swelling in your ankles. You have trouble with your vision. Get help right away if: You develop a severe headache or confusion. You have unusual weakness or numbness, or you feel faint. You have severe pain in your chest or abdomen. You vomit repeatedly. You have trouble breathing. These symptoms may be an emergency. Get help right away. Call 911. Do not wait to see if the symptoms will go away. Do not drive yourself to the hospital. Summary Hypertension is when the force of blood pumping through your arteries is too strong. If this condition is not controlled, it may put you at risk for serious complications. Your personal target blood pressure may vary depending on your medical conditions, your age, and other factors. For most people, a normal blood pressure is less than 120/80. Hypertension is managed by lifestyle changes, medicines, or both. Lifestyle changes to help manage hypertension include losing weight, eating a healthy, low-sodium diet, exercising more, stopping smoking, and limiting alcohol. This information is not intended to replace advice given to you by your health care provider. Make sure you discuss any questions you have with your health care provider. Document Revised: 01/24/2022 Document Reviewed: 01/24/2022 [employer] Patient Education 2022 [employer]. 01/02/2024 11:43:03 Urinary Tract Infection, Adult, Ohqx-bl-Islt Urinary Tract Infection, Adult A urinary tract infection (UTI) is an infection of any part of the urinary tract. The urinary tractincludes: The kidneys. The ureters. The bladder. The urethra. These organs make, store, and get rid of pee (urine) in the body. What are the causes? This infection is caused by germs (bacteria) in your genital area. These germs grow and cause swelling (inflammation) of your urinary tract. What increases the risk? The following factors may make you more likely to develop this condition: Using a small, thin tube (catheter) to drain pee. Not being able to control when you pee or poop (incontinence). Being female. If you are female, these things can increase the risk: ?Using these methods to prevent : ?A medicine that kills sperm (spermicide). ?A device that blocks sperm (diaphragm). ?Having low levels of a female hormone (estrogen). ?Being . You are more likely to develop this condition if: You have genes that add to your risk. You are sexually active. You take antibiotic medicines. You have trouble peeing because of: ?A prostate that is bigger than normal, if you are male. ?A blockage in the part of your body that drains pee from the bladder. ?A kidney stone. ?A nerve condition that affects your bladder. ?Not getting enough to drink. ?Not peeing often enough. You have other conditions, such as: ?Diabetes. ?A weak disease-fighting system (immune system). ?Sickle cell disease. ?Gout. ?Injury of the spine. What are the signs or symptoms? Symptoms of this condition include: Needing to pee right away. Peeing small amounts often. Pain or burning when peeing. Blood in the pee. Pee that smells bad or not like normal. Trouble peeing. Pee that is cloudy. Fluid coming from the vagina, if you are female. Pain in the belly or lower back. Other symptoms include: Vomiting. Not feeling hungry. Feeling mixed up (confused). This may be the first symptom in older adults. Being tired and grouchy (irritable). A fever. Watery poop (diarrhea). How is this treated? Taking antibiotic medicine. Taking other medicines. Drinking enough water. In some cases, you may need to see a specialist. Follow these instructions at home: Medicines Take yagn-ihk-mcmplks and prescription medicines only as told by your doctor. If you were prescribed an antibiotic medicine, take it as told by your doctor. Do not stop taking it even if you start to feel better. General instructions Make sure you: ?Pee until your bladder is empty. ?Do not hold pee for a long time. ?Empty your bladder after sex. ?Wipe from front to back after peeing or pooping if you are a female. Use each tissue one time whenyou wipe. Drink enough fluid to keep your pee pale yellow. Keep all follow-up visits. Contact a doctor if: You do not get better after 1 2 days. Your symptoms go away and then come back. Get help right away if: You have very bad back pain. You have very bad pain in your lower belly. You have a fever. You have chills. You feeling like you will vomit or you vomit. Summary A urinary tract infection (UTI) is an infection of any part of the urinary tract. This condition is caused by germs in your genital area. There are many risk factors for a UTI. Treatment includes antibiotic medicines. Drink enough fluid to keep your pee pale yellow. This information is not intended to replace advice given to you by your health care provider. Make sure you discuss any questions you have with your health care provider. Document Revised: 12/22/2020 Document Reviewed: 12/22/2020 [employer] Patient Education 2022 [employer]. Follow Up Care 01/02/2024 10:41:52 With:AZUL BATEMAN CNP Address: [address] [place] [address]- When: Unknown [facility] 07-15-2024 Hospital Discharge instructions Follow Up Care 12/08/2023 14:47:07 With:Sofia RAMOS, Gala Christie, PUL, SJ Address: [address] [facility] [facility] [place] [address]- When:6 weeks [facility] 04-19-2024 Evaluation + Plan noteExtracted from: Title:Discharge Note Author:MAYI RAMOS, Jony Marlon e:09/12/23 stable Discharge To, Anticipated II - Detention Unit Discharged to - detention unit SNF Discharge Diet(s): Regular (09/12/23 09:18:00) Prescriptions clonazepam 1 mg Tab, 1 mg= 1 tab(s), Oral, TID Colace 100 mg Cap, 100 mg= 1 cap(s), Oral, BID Ensure Vanilla, See Instructions, 5 refills fluticasone 0.05 mg/inh Nasal Britt, 2 spray(s), Nasal, Daily, 5 refills mupirocin Top 2% Oint, 1 ramila, Topical, TID nitrofurantoin macrocrystals-monohydrate 100 mg Cap, 100 mg= 1 cap(s), Oral, BID ondansetron 4 mg Dis Tab, 4 mg= 1 tab(s), Oral, q6hr, PRN potassium chloride 10 mEq Cap-ER, 10 mEq= 1 cap(s), Oral, Every other day, 2 refills Senokot 8.6 mg Tab, 17.2 mg= 2 tab(s), Oral, Once a day (at bedtime), PRN, 1 refills, Not taking Straight Catheters & Supplies, See Instructions, 5 refills traZODONE 150 mg Tab, 150 mg= 1 tab(s), Oral, Once a day (at bedtime), 3 refills walking boot, See Instructions Zofran ODT 4 mg Tab-Dis, 4 mg= 1 tab(s), Oral, TID, PRN, 1 refills Home amLODIPine 5 mg Tab, 5 mg= 1 tab(s), Oral, Daily Celebrex, 200 mg, Oral, Daily celecoxib 200 mg Cap, Not taking Miralax 17 gram packet, 17 gm, Oral, Daily Pantoprazole [address] Tab sodium chloride, 2 gram, Oral, TID Therapeutic Multiple Vitamins with Minerals Tab, Oral, Daily With When Contact Information AZUL BATEMAN In 0 days [address] [place] [address] [facility] (1) Additional Instructions: Urinary Tract Infection, Adult, Jmca-ai-Lmng Neurogenic Bladder Discharge time >30 min Extracted from: Title:Admission H & P Author:Ana Gandhi MD Date:09/07/23 1. Encephalopathy (G93.40: E ncephalopathy, unspecified) Likely related to underlying behavioral issues or dementia. She has a known hx Bipolar disorder. Medical workup negative. Patient admitted to earlier this month. [facility] was contacted in the ED and did not feel she warranted admission this time. 2. Abnormal urine (R82.90: Unspecified abnormal findings in urine) UA reviewed. Patient high risk of bacterial colonization due to neurogenic bladder. In the past her UA looked very similar, but culture has been negative. Have opted to not treat as a UTI at this point, and will wait for culture. If culture is indeed positive, would recommend a course of Abx 3. Neurogenic bladder disorder (N31.8: Other neuromuscular dysfunction of bladder) Patient reports she self-caths 12X a day. Have ordered it QID and prn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 factors for a UTI. Treatment includes antibiotic medicines. Drink enough fluid to keep your pee pale yellow. This information is not intended to replace advice given to you by your health care provider. Make sure you discuss any questions you have with your health care provider. Document Revised: 12/22/2020 Document Reviewed: 12/22/2020 [employer] Patient Education 2022 [employer]. Follow Up Care 08/12/2023 18:07:07 With:Dolly Valenzuela Address: [address] [place] [address], [address] [place] [id number] Business (1) When:08/15/2023 19:17:50 [facility]03-19-2024 Evaluation + Plan noteExtracted from: Title:ED Note Author:Deborah Talavera PA-C Date:08/12/23 1. Acute lower UTI (urinary tract infection) (N39.0: Urinary tract infection, site not specified) Orders: UA With Cult Reflex Urine Culture Diagnostic Tests Pending * Urine Culture 08/12/23 [facility]03-17-2024 Hospital Discharge instructions Patient Education 08/10/2023 00:55:01 Urinary Tract Infection, Adult Urinary Tract Infection, Adult A urinary tract infection (UTI) is an infection of any part of the urinary tract. The urinary tractincludes the kidneys, ureters, bladder, and urethra. These organs make, store, and get rid of urinein the body. An upper UTI affects the ureters and kidneys. A lower UTI affects the bladder and urethra. What are the causes? Most urinary tract infections are caused by bacteria in your genital area around your urethra, where urine leaves your body. These bacteria grow and cause inflammation of your urinary tract. What increases the risk? You are more likely to develop this condition if: You have a urinary catheter that stays in place. You are not able to control when you urinate or have a bowel movement (incontinence). You are female and you: ?Use a spermicide or diaphragm for control. ?Have low estrogen levels. ?Are . You have certain genes that increase your risk. You are sexually active. You take antibiotic medicines. You have a condition that causes your flow of urine to slow down, such as: ?An enlarged prostate, if you are male. ?Blockage in your urethra. ?A kidney stone. ?A nerve condition that affects your bladder control (neurogenic bladder). ?Not getting enough to drink, or not urinating often. You have certain medical conditions, such as: ?Diabetes. ?A weak disease-fighting system (immunesystem). ?Sickle cell disease. ?Gout. ?Spinal cord injury. What are the signs or symptoms? Symptoms of this condition include: Needing to urinate right away (urgency). Frequent urination. This may include small amounts of urine each time you urinate. Pain or burning with urination. Blood in the urine. Urine that smells bad or unusual. Trouble urinating. Cloudy urine. Vaginal discharge, if you are female. Pain in the abdomen or the lower back. You may also have: Vomiting or a decreased appetite. Confusion. Irritability or tiredness. A fever or chills. Diarrhea. The first symptom in older adults may be confusion. In some cases, they may not have any symptoms until the infection has worsened. How is this diagnosed? This condition is diagnosed based on your medical history and a physical exam. You may also have other tests, including: Urine tests. Blood tests. Tests for STIs (sexually transmitted infections). If you have had more than one UTI, a cystoscopy or imaging studies may be done to determine the cause of the infections. How is this treated? Treatment for this condition includes: Antibiotic medicine. Ltyp-png-qavmhkw medicines to treat discomfort. Drinking enough water to stay hydrated. If you have frequent infections or have other conditions such as a kidney stone, you may need to see a health care provider who specializes in the urinary tract (urologist). In rare cases, urinary tract infections can cause sepsis. Sepsis is a life- threatening condition that occurs when the body responds to an infection. Sepsis is treated in the hospital with IV antibiotics, fluids, and other medicines. Follow these instructions at home: Medicines Take llrx-ovo-qweftmj and prescription medicines only as told by your health care provider. If you were prescribed an antibiotic medicine, take it as told by your health care provider. Do notstop using the antibiotic even if you start to feel better. General instructions Make sure you: ?Empty your bladder often and completely. Do not hold urine for long periods of time. ?Empty your bladder after sex. ?Wipe from front to back after urinating or having a bowel movement if you are female. Use each tissue only one time when you wipe. Drink enough fluid to keep your urine pale yellow. Keep all follow-up visits. This is important. Contact a health care provider if: Your symptoms do not get better after 1 2 days. Your symptoms go away and then return. Get help right away if: You have severe pain in your back or your lower abdomen. You have a fever or chills. You have nausea or vomiting. Summary A urinary tract infection (UTI) is an infection of any part of the urinary tract, which includes the kidneys, ureters, bladder, and urethra. Most urinary tract infections are caused by bacteria in your genital area. Treatment for this condition often includes antibiotic medicines. If you were prescribed an antibiotic medicine, take it as told by your health care provider. Do notstop using the antibiotic even if you start to feel better. Keep all follow-up visits. This is important. This information is not intended to replace advice given to you by your health care provider. Make sure you discuss any questions you have with your health care provider. Document Revised: 12/22/2020 Document Reviewed: 12/22/2020 [employer] Patient Education 2022 [employer]. Follow Up Care 08/09/2023 22:55:52 With:Dolly Valenzuela Address: [address] [place] [address], [address] Business (1) When:Within 3 Day(s) [facility]03-16-2024 Evaluation + Plan noteExtracted from: Title:ED Note Author:Santiago Harrington DO Date :08/09/23 Acute UTI (N39.0: Urinary tr act infection, site not specified) Orders: cephalexin, 500 mg = 1 cap(s), Oral, q12hr, X 7 day(s), # 14 cap(s), Refills(s) 0, Pharmacy: [facility]/pharmacy #[id number], 155, cm, 08/09/23 23:21:00 EDT, Height/Length Dosing, 67.6, kg, 08/09/23 23:21:00 EDT, Weight Dosing cephalexin, 500 mg = 1 cap(s), Cap, Oral, Once, Stop date 08/10/23 0:31:00 EDT, STAT, Start date 08/10/23 0:31:00 EDT, 08/10/23 0:31:00 EDT Basic Metabolic Panel Bladder Scan CBC w/ Auto Diff eGFR Hepatic Function Panel Lipase Level UA With Cult Reflex Urine Culture Diagnostic Tests Pending * Urine Culture 08/10/23 [facility]03-14-2024 Hospital Discharge instructions Patient Education 08/07/2023 17:35:00 Indwelling Urinary Catheter Care, Adult Indwelling Urinary Catheter Care, Adult An indwelling urinary catheter is a thin, flexible tube that is placed into the bladder to help drain urine out of the body. The catheter is inserted into the urethra. The urethra is the part of the body that drains urine from the bladder. Urine drains from the catheter into a drainage bag outside of the body. Taking good care of your catheter will keep it working properly and help to prevent problems from developing. What are the risks? Bacteria may get into your bladder and cause a urinary tract infection. Urine flow can become blocked. This can happen if the catheter is not working correctly, or if you have sediment or a blood clot in your bladder or catheter. Tissue near the catheter may become irritated and may bleed. How to wear your catheter and your drainage bag Supplies needed Adhesive tape or a leg strap. Alcohol wipe or soap and water (if you use tape). A clean towel (if you use tape). Overnight drainage bag. Smaller drainage bag (leg bag). Wearing your catheter and bag Use adhesive tape or a leg strap to attach your catheter to your leg. Make sure the catheter is not pulled tight. If a leg strap gets wet, replace it with a dry one. If you use adhesive tape: 1.Use an alcohol wipe or soap and water to wash off any stickiness on your skin where you had tape before. 2.Use a clean towel to pat-dry the area. 3.Apply the new tape. You should have received a large overnight drainage bag and a smaller leg bag that fits underneath clothing. You may wear the overnight bag at any time, but you should not wear the leg bag at night. Make sure the overnight drainage bag is always lower than the level of your bladder, but do not letit touch the floor. Before you go to sleep, hang the bag inside a wastebasket that is covered by a clean plastic bag. Secure the leg bag according to ship washer's instructions. This may be above or below the knee, depending on the length of the tubing. Make sure that: ?The leg bag is below the bladder. ?The tubing does not have loops or too much tension. How to care for the skin around the catheter Supplies needed A clean washcloth. Water and mild soap. A clean towel. Caring for your skin and catheter Every day, use a clean washcloth and soapy water to clean the skin around your catheter. 1.Wash your hands with soap and water. 2.Wet a washcloth in warm water and mild soap. 3.Clean the skin around your urethra. ?If you are female: ?Use one hand to gently spread the folds of skin around your vagina (labia). ?With the washcloth in your other hand, wipe the inner side of your labia on each side. Do this in a xlrqo-nz-ttlo direction. ?If you are male: ?Use one hand to pull back any skin that covers the end of your penis (foreskin). ?With the washcloth in your other hand, wipe your penis in small circles. Start wiping at the tip of your penis, then move outward from the catheter. ?Move the foreskin back in place, if needed. 4.With your free hand, hold the catheter close to where it enters your body. Keep holding the catheter during cleaning so it does not get pulled out. 5.Use your other hand to clean the catheter with the washcloth. ?Only wipe downward on the catheter, toward the bag. ?Do not wipe upward toward your body, because that may push bacteria into your urethra and cause infection. 6.Use a clean towel to pat-dry the catheter and the skin around it. Make sure to wipe off all soap. 7.Wash your hands with soap and water. Shower every day. Do not take baths. Do not use cream, ointment, or lotion on the area where the catheter enters your body, unless your health care provider tells you to do that. Do not use powders, sprays, or lotions on your genital area. Check your skin around the catheter every day for signs of infection. Check for: ?Redness, swelling, or pain. ?Fluid or blood. ?Warmth. ?Pus or a bad smell. How to empty the drainage bag Supplies needed Rubbing alcohol. Gauze pad or cotton ball. Adhesive tape or a leg strap. Emptying the bag Empty your drainage bag (your overnight drainage bag or your leg bag) when it is ? full, or at least 2 3 times a day. Clean the drainage bag according to the ship washer's instructions or as told byyour health care provider. 1.Wash your hands with soap and water. 2.Detach the drainage bag from your leg. 3.Hold the drainage bag over the toilet or a clean container. Make sure the drainage bag is lower than your hips and bladder. This stops urine from going back into the tubing and into your bladder. 4.Open the pour spout at the bottom of the bag. 5.Empty the urine into the toilet or container. Do not let the pour spout touch any surface. This precaution is important to prevent bacteria from getting in the bag and causing infection. 6.Apply rubbing alcohol to a gauze pad or cotton ball. 7.Use the gauze pad or cotton ball to clean the pour spout. 8.Close the pour spout. 9.Attach the bag to your leg with adhesive tape or a leg strap. 10.Wash your hands with soap and water. How to change the drainage bag Supplies needed: Alcohol wipes. A clean drainage bag. Adhesive tape or a leg strap. Changing the bag Replace your drainage bag with a clean bag if it leaks, starts to smell bad, or looks dirty. 1.Wash your hands with soap and water. 2.Detach the dirty drainage bag from your leg. 3.Pinch the catheter with your fingers so that urine does not spill out. 4.Disconnect the catheter tube from the drainage tube at the connection valve. Do not let the tubestouch any surface. 5.Clean the end of the catheter tube with an alcohol wipe. Use a different alcohol wipe to clean the end of the drainage tube. 6.Connect the catheter tube to the drainage tube of the clean bag. 7.Attach the clean bag to your leg with adhesive tape or a leg strap. Avoid attaching the new bag too tightly. 8.Wash your hands with soap and water. General instructions Never pull on your catheter or try to remove it. Pulling can damage your internal tissues. Always wash your hands before and after you handle your catheter or drainage bag. Use a mild, fragrance-free soap. If soap and water are not available, use hand manager of internal audit. Always make sure there are no twists, bends, or kinks in the catheter tube. Always make sure there are no leaks in the catheter or drainage bag. Drink enough fluid to keep your urine pale yellow. Do not take baths, swim, or use a hot tub. If you are female, wipe from front to back after having a bowel movement. Contact a health care provider if: Your catheter gets clogged. Your catheter starts to leak. You have signs of infection at the catheter site, such as: ?Redness, swelling, or pain where the catheter enters your body. ?Fluid, blood, pus, or a bad smell coming from the area where the catheter enters your body. ?The area where the catheter enters your body feels warm to the touch. You have signs of a urinary tract infection, such as: ?Fever or chills. ?Urine smells unusually bad. ?Cloudy urine. ?Pain in your abdomen, legs, lower back, or bladder. ?Nausea or vomiting. Get help right away if: You see blood in the catheter. Your urine is pink or red. Your bladder feels full. Your urine is not draining into the bag. Your catheter gets pulled out. Summary An indwelling urinary catheter is a thin, flexible tube that is placed into the bladder to help drain urine out of the body. The catheter is inserted into the part of the body that drains urine from the bladder (urethra). Take good care of your catheter to keep it working properly and help prevent problems from developing. Always wash your hands before and after you handle your catheter or drainage bag. Never pull on your catheter or try to remove it. This information is not intended to replace advice given to you by your health care provider. Make sure you discuss any questions you have with your health care provider. Document Revised: 01/10/2022 Document Reviewed: 01/10/2022 [employer] Patient Education 2022 [employer]. 08/07/2023 17:35:00 Acute Urinary Retention, Female, [id number] Acute Urinary Retention, Female Acute urinary retention is when a person cannot pee (urinate) at all, or can only pee a little. This can come on all of a sudden. If it is not treated, it can lead to kidney problems or other seriousproblems. What are the causes? A problem with the tube that drains the bladder (urethra). Problems with the nerves in the bladder. The organs in the area between your hip bones (pelvis) slipping out of place (prolapse). Tumors. The of a baby through the vagina. An infection. Having trouble pooping (constipation). Certain medicines. What increases the risk? Women over age 50 are more at risk. Other conditions also can increase risk. These include: Diseases, such as multiple sclerosis. Injury to the spinal cord. Diabetes. A condition that affects the way the brain works, such as dementia. Holding back urine due to trauma or because you do not want to use the bathroom. History of not being able to pee or peeing too little. Having had surgery in the area between your hip bones. What are the signs or symptoms? Trouble peeing. Pain in the lower belly. How is this treated? Treatment for this condition may include: Medicines. Placing a thin, germ-free tube (catheter) into the bladder to drain pee out of the body. Therapy to treat mental health conditions. Treatment for conditions that may cause this. If needed, you may be treated in the hospital for kidney problems or to manage other problems. Follow these instructions at home: Medicines Take [id number] and prescription medicines only as told by your doctor. Ask your doctor what medicines you should stay away from. If you were given an antibiotic medicine, take it as told by your doctor. Do not stop taking it even if you start to feel better. General instructions Do not smoke or use any products that contain nicotine or tobacco. If you need help quitting, ask your doctor. Drink enough fluid to keep your pee pale yellow. If you were sent home with a tube that drains the bladder, take care of it as told by your doctor. Watch for changes in your symptoms. Tell your doctor about them. If told, keep track of changes in your blood pressure at home. Tell your doctor about them. Keep all follow-up visits. Contact a doctor if: You have spasms in your bladder that you cannot stop. You leak pee when you have spasms. Get help right away if: You have chills or a fever. You have blood in your pee. You have a tube that drains pee from the bladder and these things happen: ?The tube stops draining pee. ?The tube falls out. Summary Acute urinary retention is when you cannot pee at all or you pee too little. If this is not treated, it can cause kidney problems or other serious problems. If you were sent home with a tube (catheter) that drains pee from the bladder, take care of it as told by your doctor. Watch for changes in your symptoms. Tell your doctor about them. This information is not intended to replace advice given to you by your health care provider. Make sure you discuss any questions you have with your health care provider. Document Revised: 01/31/2021 Document Reviewed: 01/31/2021 [employer] Patient Education 2022 [employer]. Follow Up Care 08/07/2023 15:05:17 With:Dolly Valenzuela Address: [address] [place] [address], [address] [place] [address] Business (1) When:08/10/2023 15:50:38 [facility]03-14-2024 Evaluation + Plan note Diagnostic Tests Pending * Urine Culture 08/07/23 [facility]01-02-2024 Hospital Discharge instructions Patient Education 05/26/2023 23:07:30 Clean Intermittent Catheterization, Female Clean Intermittent Catheterization, Female Clean intermittent catheterization (CIC) is a procedure to remove urine from the bladder by placinga small, flexible tube (catheter) into the bladder though the urethra. The urethra is a tube in thebody that carries urine from the bladder out of the body. CIC may be done when: You cannot completely empty your bladder on your own. This may be due to a blockage in the bladder or urethra. Your bladder leaks urine. This may happen when the muscles or nerves near the bladder are not working normally, and the bladder overflows. Your health care provider will show you how to perform CIC and will help you to feel comfortable performing this procedure at home. Your health care provider will also help you to get the home care supplies that are needed for this procedure. Supplies needed Germ-free (sterile), water-based lubricant. A container for urine collection. You may also use the toilet to dispose of urine from the catheter. A catheter. Your health care provider will determine the best size for you. ?Use this catheter size: Clean gloves. Soap and water. Clean washcloth and towel. How to perform this procedure: Most people need CIC at least 4 times per day to adequately empty the bladder. Your health care provider will tell you how often you should perform CIC. Number of times per day to perform CIC: To perform CIC, follow these steps: 1.Wash your hands with soap and water. If soap and water are not available, use hand manager of internal audit. 2.Prepare the supplies that you will use during the procedure. Open the catheter package and lubricant. 3.Get in a comfortable position. It may be helpful to use a handheld mirror to look at the opening of your urethra. Possible positions include: Sitting on a toilet, a chair, or the edge of a bed. Standing next to a toilet with one foot on the toilet rim. Lying down with your head raised on pillows and your knees pointing to the ceiling. You may wish toplace a waterproof mat or pad under you. 4.If you are using a urine collection container, position it between your legs. 5.Urinate, if you are able. 6.Put on gloves. 7.Apply lubricant to about 2 inches (5 cm) of the tip of the catheter. 8.Set the catheter down on a clean, dry surface within reach. 9.Gently spread the folds of skin around your vagina (labia) with your non- dominant hand. For example, if you are right-handed, use your left hand to do this. With the other hand, clean the urethral opening with a washcloth and warm, soapy water, wiping from front to back. Dry the area completely with a towel. 10.While keeping your labia spread apart, slowly insert the lubricated catheter straight into your urethra until urine flows freely. This is usually 2 3 inches (5 8 cm). 11.When urine starts to flow freely, insert the catheter 1 inch (3 cm) more. Allow urine to drain into the toilet or the urine collection container. 12.When urine stops flowing, slowly remove the catheter. 13.Note the color, amount, and odor of the urine. 14.Measure your urine and note the amount, if told by your health care provider. 15.Discard the urine in the toilet. 16.Wash your genital area with soap and water. Wipe from front to back. 17.If you are using a single-use catheter, discard the catheter and supplies. 18.Wash your hands with soap and water. 19.If you are using a reusable catheter, follow package instructions about how to clean the catheter after each use. What are the risks? Generally, this is a safe procedure, however problems may occur, including: Infection. Injury to the urethra. Irritation of the urethra. How often should I perform this procedure? Do CIC to empty your bladder every 4 6 hours or as often as told by your health care provider. ?If you have symptoms of too much urine in your bladder (overdistension) and you are not able to urinate, perform CIC. Symptoms of overdistension may include: ?Restlessness. ?Sweating or chills. ?Headache. ?Flushed or pale skin. ?Bloated lower abdomen. Follow these instructions at home: General instructions Drink enough fluid to keep your urine pale yellow. Dispose of a multiple-use catheter when it becomes dry, brittle, or cloudy. This usually happens after you use the catheter for 1 week. Avoid caffeine. Caffeine may make you need to urinate more frequently and more urgently. When traveling, bring extra supplies with you in case of delays. Keep supplies with you in a place that you can access easily. If traveling by plane: ?Make sure that the lubricant in your carry-on bag is less than 3.4 ounces (100 mL). ?Use a single-use catheter. It may be difficult to clean a reusable catheter in a small bathroom. Take dauh-wlt-wybieub and prescription medicines only as told by your health care provider. Keep all follow-up visits as told by your health care provider. This is important. Contact a health care provider if you: Have problems performing CIC. Have urine leaking during CIC. Have: ?Dark or cloudy urine. ?Blood in your urine or in your catheter. ?A change in the smell of your urine or discharge. ?A burning feeling while you urinate. Feel nauseous or you vomit. Have pain in your abdomen, your back, or your sides below your ribs. Have swelling or redness around the opening of your urethra. Develop a rash or sores on your skin. Get help right away if you have: A fever. Symptoms that do not go away after 3 days. Symptoms that suddenly get worse. Severe pain. A decrease in the amount of urine that drains from your bladder. Summary Clean intermittent catheterization (CIC) is a procedure to remove urine from the bladder by placinga small, flexible tube (catheter) into the bladder though the urethra. Your health care provider will show you how to perform CIC and will help you to feel comfortable performing this procedure at home. Most people need CIC at least 4 times per day to adequately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 right away if: You cannot pass urine. Summary Neurogenic bladder is a bladder control disorder caused by problems with the nerves that control the bladder. This condition may make the bladder overactive or underactive. This condition may be caused by nerve damage or a condition that disrupts the signals from your brain to your bladder. Treatment depends on the cause of your neurogenic bladder and the symptoms that you have. Work closely with your health care provider to find the treatments that will improve your quality of life. This information is not intended to replace advice given to you by your health care provider. Make sure you discuss any questions you have with your health care provider. Document Revised: 01/25/2021 Document Reviewed: 01/25/2021 [employer] Patient Education 2022 [employer]. 01/04/2023 16:19:11 Indwelling Urinary Catheter Insertion, Care After Indwelling Urinary Catheter Insertion, Care After This sheet gives you information about how to care for yourself after your procedure. Your health care provider may also give you more specific instructions. If you have problems or questions, contact your health care provider. What can I expect after the procedure? After the procedure, it is common to have: Slight discomfort around your urethra where the catheter enters your body. Follow these instructions at home: General instructions Keep the drainage bag at or below the level of your bladder. By doing this, your urine can only drain out instead of going back into your body. Secure the catheter tubing and drainage bag to your leg or thigh to keep it from moving. Check the catheter tubing regularly to make sure there are no kinks or blockages. Take showers daily to keep the catheter clean. Do not take a bath. Do not pull on your catheter. Disconnect the tubing and drainage bag as little as possible. Empty the drainage bag every 2 4 hours, or more often if needed. Do not let the bag get completely full. Wash your hands with soap and water before and after touching the catheter, tubing, or drainage bag. Do not let the drainage bag or catheter tubing touch the floor. Drink enough fluids to keep your urine pale yellow, or as told by your health care provider. How to remove the catheter Remove the catheter only if told by your health care provider. Follow instructions from your healthcare provider about when and how to remove the catheter. For most catheters, you will need to take the following steps: 1.Prepare your supplies. You will need a: Syringe. This would be given to you by your health care provider. Towel. Wastebasket. 2.Empty the drainage bag if needed. 3.Wash your hands with soap and warm water. 4.Remove the tape that secures the catheter to your leg or thigh. 5.Get into a comfortable position, such as: Lying down with your head raised on pillows and your knees pointing to the ceiling. Sitting on a chair or the edge of a bed. 6.Place the towel under you to catch any spilled urine. 7.Put the syringe into the balloon port of the catheter. Use a firm push and twist motion to fit the syringe into the balloon port. 8.The water from the balloon will empty into the syringe. 9.Gently pull out the catheter once the balloon is empty. If the catheter doesn't slide easily, do not use force. Let your health care provider know that youare not able to remove the catheter. 10.Throw the used catheter and the syringe in the wastebasket. 11.Wipe any spilled urine or water with the towel. 12.Wash your hands with soap and warm water. Safety Let your health care provider know if: Your bladder is full, but you are not able to urinate. You have removed the catheter, but you are not able to urinate after 8 hours. Contact a health care provider if: Your urine: ?Looks cloudy. ?Has a bad smell. ?Stops flowing into the drainage bag. Your catheter: ?Gets clogged. ?Starts to leak. You feel pain or pressure in the bladder area. You have back pain. Your drainage bag or tubing looks dirty. Get help right away if: You have a fever or chills. You have severe pain in your back or your lower abdomen. You have warmth, redness, swelling, or pain in the urethra area. You notice blood in your urine. Your catheter gets pulled out. Summary Wash your hands with soap and water before and after touching the catheter, tubing, or drainage bag. Do not pull on your catheter or try to remove it. Keep the drainage bag at or below the level of your bladder, but do not let the drainage bag or catheter tubing touch the floor. Get help right away if you have a fever, chills, or any other signs of infection. This information is not intended to replace advice given to you by your health care provider. Make sure you discuss any questions you have with your health care provider. Document Revised: 08/01/2021 Document Reviewed: 04/27/2021 [employer] Patient Education 2021 [employer]. 01/04/2023 16:19:11 Indwelling Urinary Catheter Insertion Indwelling Urinary Catheter Insertion For people with certain conditions, urine is not able to move normally through the urethra. The urethra is the part of the body that drains urine from the bladder. An indwelling urinary catheter may be needed if you have urinary retention problems or bladder obstruction. It may also be needed during and after surgical procedures and for other medical conditions. An indwelling urinary catheter is a thin, germ-free (sterile) tube that is placed into the bladder through the urethra to help drain urine out of the body. After the catheter is inserted, it is held in place by a small balloon on the catheter. The small balloon is filled with sterile water. Urine drains from the catheter into a drainage bag outside of the body. Tell a health care provider about: Any allergies you have. Any surgeries you have had. Any medical conditions you have. Any bleeding problems you have. What are the risks? Generally, this is a safe procedure. However, problems may occur, including: Infection. Bleeding. Damage to nearby structures or organs. What happens before the procedure? Your health care provider will inspect your urethra before inserting the catheter. Ask your health care provider what steps will be taken to help prevent infection. These steps may include washing your skin with a germ-killing soap. What happens during the procedure? A lubricant will be placed on the catheter to make it easy to insert it into the urethra. The catheter will be inserted into the urethra until you can see urine flowing into the drainage bag. After the urine starts to flow, the catheter may be inserted another couple of inches (about 5 cm). Sterile water will be used to inflate the balloon to hold the catheter in place. After the catheter balloon is inflated, it will be pulled back so it is against the narrow opening at the end of the bladder. Your health care provider will check for urine flow into the drainage bag. The procedure may vary among health care providers and hospitals. What happens after the procedure? Urine in the drainage bag will be emptied and measured by your health care provider while you are in the hospital. Your health care provider will remove the catheter for you. This will be done when the catheter is no longer necessary, which is likely to be before you leave the hospital. Summary An indwelling catheter is a sterile tube that is placed into the bladder through the urethra to help drain urine out of the body. The catheter will be removed when it is no longer needed. This information is not intended to replace advice given to you by your health care provider. Make sure you discuss any questions you have with your health care provider. Document Revised: 01/09/2022 Document Reviewed: 01/09/2022 [employer] Patient Education 2022 [employer]. 01/04/2023 16:19:11 Acute Urinary Retention, Female, Nypi-cx-Eebj Acute Urinary Retention, Female Acute urinary retention is when a person cannot pee (urinate) at all, or can only pee a little. This can come on all of a sudden. If it is not treated, it can lead to kidney problems or other seriousproblems. What are the causes? A problem with the tube that drains the bladder (urethra). Problems with the nerves in the bladder. The organs in the area between your hip bones (pelvis) slipping out of place (prolapse). Tumors. The of a baby through the vagina. An infection. Having trouble pooping (constipation). Certain medicines. What increases the risk? Women over age 50 are more at risk. Other conditions also can increase risk. These include: Diseases, such as multiple sclerosis. Injury to the spinal cord. Diabetes. A condition that affects the way the brain works, such as dementia. Holding back urine due to trauma or because you do not want to use the bathroom. History of not being able to pee or peeing too little. Having had surgery in the area between your hip bones. What are the signs or symptoms? Trouble peeing. Pain in the lower belly. How is this treated? Treatment for this condition may include: Medicines. Placing a thin, germ-free tube (catheter) into the bladder to drain pee out of the body. Therapy to treat mental health conditions. Treatment for conditions that may cause this. If needed, you may be treated in the hospital for kidney problems or to manage other problems. Follow these instructions at home: Medicines Take htif-aoz-vmgsmiy and prescription medicines only as told by your doctor. Ask your doctor what medicines you should stay away from. If you were given an antibiotic medicine, take it as told by your doctor. Do not stop taking it even if you start to feel better. General instructions Do not smoke or use any products that contain nicotine or tobacco. If you need help quitting, ask your doctor. Drink enough fluid to keep your pee pale yellow. If you were sent home with a tube that drains the bladder, take care of it as told by your doctor. Watch for changes in your symptoms. Tell your doctor about them. If told, keep track of changes in your blood pressure at home. Tell your doctor about them. Keep all follow-up visits. Contact a doctor if: You have spasms in your bladder that you cannot stop. You leak pee when you have spasms. Get help right away if: You have chills or a fever. You have blood in your pee. You have a tube that drains pee from the bladder and these things happen: ?The tube stops draining pee. ?The tube falls out. Summary Acute urinary retention is when you cannot pee at all or you pee too little. If this is not treated, it can cause kidney problems or other serious problems. If you were sent home with a tube (catheter) that drains pee from the bladder, take care of it as told by your doctor. Watch for changes in your symptoms. Tell your doctor about them. This information is not intended to replace advice given to you by your health care provider. Make sure you discuss any questions you have with your health care provider. Document Revised: 01/31/2021 Document Reviewed: 01/31/2021 [employer] Patient Education 2022 [employer]. Follow Up Care 01/04/2023 14:58:20 With:Albino TORRES Address: [facility] [address], [place] [address]- Business (1) When:01/07/2023 15:56:53 [facility]08-12-2023 Miscellaneous Notes* Telephone Encounter - Radha Lara RN - 01/04/2023 2:24 PM EDT Reason: Catheter accidentally pulled out. Outcome: See HCP within 4 hours. Patient will go back to the ED. Reason for Disposition Catheter was accidentally pulled-out Answer Assessment - Initial Assessment Questions 1. SYMPTOMS: Catheter came out. 2. ONSET: 01-04-23 1415. 3. FEVER: Denies. 4. ABDOMINAL PAIN: Denies. 5. URINE COLOR: Yellow. 6. URINE AMOUNT: States she was leaking urine around the catheter. She tugged on it and the whole thing came out with inflated balloon. 7. INSERTION: 01-04-23. Was seen in ED for urinary retention and was sent home with a catheter. 8. OTHER SYMPTOMS: Denies any other symptoms. Protocols used: Urinary Catheter (e.g., Mcdonough) Symptoms and [id number] [facility] Hospital Discharge instructions Patient Education 12/29/2022 13:53:50 Dehydration, Adult Dehydration, Adult Dehydration is a condition in which there is not enough water or other fluids in the body. This happens when a person loses more fluids than he or she takes in. Important organs, such as the kidneys,brain, and heart, cannot function without a proper amount of fluids. Any loss of fluids from the body can lead to dehydration. Dehydration can be mild, moderate, or severe. It should be treated right away to prevent it from becoming severe. What are the causes? Dehydration may be caused by: Conditions that cause loss of water or other fluids, such as diarrhea, vomiting, or sweating or urinating a lot. Not drinking enough fluids, especially when you are ill or doing activities that require a lot of energy. Other illnesses and conditions, such as fever or infection. Certain medicines, such as medicines that remove excess fluid from the body (diuretics). Lack of safe drinking water. Not being able to get enough water and food. What increases the risk? The following factors may make you more likely to develop this condition: Having a long-term (chronic) illness that has not been treated properly, such as diabetes, heart disease, or kidney disease. Being 65 years of age or older. Having a disability. Living in a place that is high in altitude, where thinner, clothes drier repairer air causes more fluid loss. Doing exercises that put stress on your body for a long time (endurance sports). What are the signs or symptoms? Symptoms of dehydration depend on how severe it is. Mild or moderate dehydration Thirst. Dry lips or dry mouth. Dizziness or light-headedness, especially when standing up from a seated position. Muscle cramps. Dark urine. Urine may be the color of tea. Less urine or tears produced than usual. Headache. Severe dehydration Changes in skin. Your skin may be cold and clammy, blotchy, or pale. Your skin also may not return to normal after being lightly pinched and released. Little or no tears, urine, or sweat. Changes in vital signs, such as rapid breathing and low blood pressure. Your pulse may be weak or may be faster than 100 beats a minute when you are sitting still. Other changes, such as: ?Feeling very thirsty. ?Sunken eyes. ?Cold hands and feet. ?Confusion. ?Being very tired (lethargic) or having trouble waking from sleep. ?Short-term weight loss. ?Loss of consciousness. How is this diagnosed? This condition is diagnosed based on your symptoms and a physical exam. You may have blood and urine tests to help confirm the diagnosis. How is this treated? Treatment for this condition depends on how severe it is. Treatment should be started right away. Do not wait until dehydration becomes severe. Severe dehydration is an emergency and needs to be treated in a hospital. Mild or moderate dehydration can be treated at home. You may be asked to: ?Drink more fluids. ?Drink an oral rehydration solution (ORS). This drink helps restore proper amounts of fluids and salts and minerals in the blood (electrolytes). Severe dehydration can be treated: ?With IV fluids. ?By correcting abnormal levels of electrolytes. This is often done by giving electrolytes through atube that is passed through your nose and into your stomach (nasogastric tube, or NG tube). ?By treating the underlying cause of dehydration. Follow these instructions at home: Oral rehydration solution If told by your health care provider, drink an ORS: Make an ORS by following instructions on the package. Start by drinking small amounts, about cup (120 mL) every 5 10 minutes. Slowly increase how much you drink until you have taken the amount recommended by your health care provider. Eating and drinking Drink enough clear fluid to keep your urine pale yellow. If you were told to drink an ORS, finish the ORS first and then start slowly drinking other clear fluids. Drink fluids such as: ?Water. Do not drink only water. Doing that can lead to hyponatremia, which is having too little salt (sodium) in the body. ?Water from ice chips you suck on. ?Fruit juice that you have added water to (diluted fruit juice). ?Low-calorie sports drinks. Eat foods that contain a healthy balance of electrolytes, such as bananas, oranges, potatoes, tomatoes, and spinach. Do not drink alcohol. Avoid the following: ?Drinks that contain a lot of sugar. These include high-calorie sports drinks, fruit juice that is not diluted, and soda. ?Caffeine. ?Foods that are greasy or contain a lot of fat or sugar. General instructions Take afpu-xdj-kgxpfnl and prescription medicines only as told by your health care provider. Do not take sodium tablets. Doing that can lead to having too much sodium in the body (hypernatremia). Return to your normal activities as told by your health care provider. Ask your health care provider what activities are safe for you. Keep all follow-up visits as told by your health care provider. This is important. Contact a health care provider if: You have muscle cramps, pain, or discomfort, such as: ?Pain in your abdomen and the pain gets worse or stays in one area (localizes). ?Stiff neck. You have a rash. You are more irritable than usual. You are sleepier or have a harder time waking than usual. You feel weak or dizzy. You feel very thirsty. Get help right away if you have: Any symptoms of severe dehydration. Symptoms of vomiting, such as: ?You cannot eat or drink without vomiting. ?Vomiting gets worse or does not go away. ?Vomit includes blood or green matter (bile). Symptoms that get worse with treatment. A fever. A severe headache. Problems with urination or bowel movements, such as: ?Diarrhea that gets worse or does not go away. ?Blood in your stool (feces). This may cause stool to look black and tarry. ?Not urinating, or urinating only a small amount of very dark urine, within 6 8 hours. Trouble breathing. These symptoms may represent a serious problem that is an emergency. Do not wait to see if the symptoms will go away. Get medical help right away. Call your local emergency services (911 in the [place] Do not drive yourself to the hospital. Summary Dehydration is a condition in which there is not enough water or other fluids in the body. This happens when a person loses more fluids than he or she takes in. Treatment for this condition depends on how severe it is. Treatment should be started right away. Do not wait until dehydration becomes severe. Drink enough clear fluid to keep your urine pale yellow. If you were told to drink an oral rehydration solution (ORS), finish the ORS first and then start slowly drinking other clear fluids. Take bkqx-fjw-syocvla and prescription medicines only as told by your health care provider. Get help right away if you have any symptoms of severe dehydration. This information is not intended to replace advice given to you by your health care provider. Make sure you discuss any questions you have with your health care provider. Document Revised: 12/23/2019 Document Reviewed: 12/23/2019 [employer] Patient Education 2022 [employer]. Follow Up Care 12/29/2022 12:33:02 With:XXXX NONE Address: [place] When:Within 3 Day(s) [facility]07-31-2023 Hospital Discharge instructions Patient Education 12/23/2022 15:21:58 Elastic Bandage and RICE Therapy Elastic Bandage and RICE Therapy Elastic bandages come in different shapes and sizes. They generally provide support to your injury and reduce swelling while you are healing, but they can perform different functions. Your health care provider will help you to decide what is best for your protection, recovery, or rehabilitation after an injury. The routine care of many injuries includes rest, ice, compression, and elevation (RICE therapy). RICE therapy is often recommended for injuries to soft tissues, such as muscle strain, sprains, bruises, and overuse injuries. It can also be used for some bone injuries. Using RICE therapy can help to relieve pain and lessen swelling. What are some general tips for using an elastic bandage? Use the bandage as directed by the maker of the bandage that you are using. Do not wrap the bandage too tightly. This may block (cut off) the circulation in the arm or leg in the area below the bandage. ?If part of your body beyond the bandage becomes blue, numb, cold, swollen, or more painful, your bandage is probably too tight. If this occurs, remove your bandage and reapply it more loosely. Remove and reapply an elastic bandage every 3 4 hours or as told by your health care provider. See your health care provider if the bandage seems to be making your problems worse rather than better. How to care for your injury with RICE therapy Rest Rest your injury. This may help with the healing process. Rest usually involves limiting your normal activities and not using the injured part of your body. Generally, you can return to your normal activities when your health care provider says it is okay and you can do them without much discomfort. If you rest the injury too much, it may not heal as well. Some injuries heal better with early movement instead of resting for too long. Talk with your health care provider about how you should limityour activities and whether you should start smbxs-bh-dzzisu exercises for your injury. Ice Ice your injury to lessen swelling and pain. Do not apply ice directly to your skin. Put ice in a plastic bag. Place a towel between your skin and the bag. Leave the ice on for 20 minutes, 2 3 times a day. Use ice on as many days as told by your health care provider. Compression Put pressure (compression) on your injured area to control swelling, give support, and help with discomfort. Compression may be done with an elastic bandage. Elevation Raise (elevate) your injured area to lessen swelling and pain. If possible, elevate your injured area at or above the level of your heart or the center of your chest. Contact a health care provider if: Your pain and swelling continue. Your symptoms are getting worse rather than improving. Having these problems may mean that you need further evaluation or imaging tests, such as X-rays estefania MRI. Sometimes, X-rays may not show a small broken bone (fracture) until days after the injury happened. Make a follow-up appointment with your health care provider. Ask your health care provider,or the department that is doing the imaging test, when your results will be ready. Get help right away if: You have sudden severe pain at or below the area of your injury. You have redness or increased swelling around your injury. You have tingling or numbness at or below the area of your injury and it does not improve after youremove the elastic bandage. Summary Elastic bandages provide support to your injury and reduce swelling while you are healing. Your health care provider will help you decide which type of elastic bandage is best for your injury. Do not wrap the bandage too tightly. This may block (cut off) the circulation in the arm or leg in the area below the bandage. Putting pressure (compression) on your injured area with an elastic bandage is part of RICE therapy. RICE therapy includes rest, ice, compression, and elevation. This treatment is recommended for theroutine care of many injuries. This information is not intended to replace advice given to you by your health care provider. Make sure you discuss any questions you have with your health care provider. Document Revised: 07/07/2020 Document Reviewed: 01/30/2018 [employer] Patient Education 2020 [employer]. 12/23/2022 15:21:58 Foot Sprain Foot Sprain A foot sprain is an injury to one of the ligaments in the feet. Ligaments are strong tissues that connect bones to each other. The ligament can be stretched too much. In some cases, it may tear. A tear can be either partial or complete. The severity of the sprain depends on how much of the ligamentwas damaged or torn. What are the causes? This condition is usually caused by suddenly twisting or pivoting your foot. What increases the risk? You are more likely to develop this condition if: You play a sport, such as basketball or football. You exercise or play a sport without first warming up your muscles. You start a new workout or sport. You suddenly increase how long or hard you exercise or play a sport. You have injured your foot or ankle before. What are the signs or symptoms? Symptoms of this condition start soon after an injury and include: Pain, especially in the arch of your foot. Bruising. Swelling. Being unable to walk or use your foot to support body weight. How is this diagnosed? This condition is diagnosed with a medical history and physical exam. You may also have imaging tests, such as: X-rays to check for broken bones (fractures). An MRI to see if the ligament is torn. How is this treated? Treatment for this condition depends on the severity of the sprain. Mild sprains and major sprains can be treated with: Rest, ice, pressure (compression), and elevation (RICE). Elevation means raising your injured foot. Keeping your foot in a fixed position (immobilization) for a period of time. This is done if your ligament is overstretched or partially torn. Your health care provider will apply a bandage, splint, or walking boot to keep your foot from moving until it heals. Using crutches or a scooter for a few weeks to avoid bearing weight on your foot while it is healing. Physical therapy exercises to improve movement and strength in your foot. Major sprains may also be treated with: Surgery. This is done if your ligament is fully torn and a procedure is needed to reconnect it to the bone. A cast or splint. This will be needed after surgery. A cast or splint will need to stay on your foot while it heals. Follow these instructions at home: If you have a bandage, splint, or boot: Wear it as told by your health care provider. Remove it only as told by your health care provider. Loosen it if your toes tingle, become numb, or turn cold and blue. Keep it clean and dry. If you have a cast: Do not put pressure on any part of the cast until it is fully hardened. This may take several hours. Do not stick anything inside the cast to scratch your skin. Doing that increases your risk for infection. Check the skin around the cast every day. Tell your health care provider about any concerns. You may put lotion on dry skin around the edges of the cast. Do not put lotion on the skin underneath the cast. Keep it clean and dry. Bathing Do not take baths, swim, or use a hot tub until your health care provider approves. Ask your healthcare provider if you may take showers. You may only be allowed to take sponge baths. If the bandage, splint, boot, or cast is not waterproof: ?Do not let it get wet. ?Cover it with a watertight covering when you take a bath or shower. Managing pain, stiffness, and swelling If directed, put ice on the injured area. To do this: ?If you have a removable bandage, splint, or boot, remove it as told by your health care provider. ?Put ice in a plastic bag. ?Place a towel between your skin and the bag, or between your cast and the bag. ?Leave the ice on for 20 minutes, 2 3 times per day. ?Remove the ice if your skin turns bright red. This is very important. If you cannot feel pain, heat, or cold, you have a greater risk of damage to the area. Move your toes often to reduce stiffness and swelling. Elevate the injured area above the level of your heart while you are sitting or lying down. Activity Do not use the injured foot to support your body weight until your health care provider says that you can. Use crutches or a scooter as told by your health care provider. Ask your health care provider what activities are safe for you. Do exercises as told by your healthcare provider. Gradually increase how much and how far you walk until your health care provider says it is safe toreturn to full activity. Driving Ask your health care provider if the medicine prescribed to you requires you to avoid driving or using machinery. Ask your health care provider when it is safe to drive if you have a bandage, splint, boot, or abraham your foot. General instructions Take zypy-awp-ddkvhtr and prescription medicines only as told by your health care provider. When you can walk without pain, wear supportive shoes that have stiff soles. Do not wear flip-flops. Do not walk barefoot. Keep all follow-up visits. This is important. Contact a health care provider if: Medicine does not help your pain. Your bruising or swelling gets worse or does not get better with treatment. Your splint, boot, or cast is damaged. Get help right away if: You develop severe numbness or tingling in your foot. Your foot turns blue, white, or roper, and it feels cold. Summary A foot sprain is an injury to one of the ligaments in the feet. Ligaments are strong tissues that connect bones to each other. You may need a bandage, splint, boot, or cast to support your foot while it heals. Sometimes, surgery may be needed. You may need physical therapy exercises to improve movement and strength in your foot. This information is not intended to replace advice given to you by your health care provider. Make sure you discuss any questions you have with your health care provider. Document Revised: 09/01/2020 Document Reviewed: 09/01/2020 [employer] Patient Education 2022 [employer] 12/23/2022 15:21:58 Ankle Sprain Ankle Sprain An ankle sprain is a stretch or tear in a ligament in the ankle. Ligaments are tissues that connectbones to each other. The two most common types of ankle sprains are: Inversion sprain. This happens when the foot turns inward and the ankle rolls outward. It affects the ligament on the outside of the foot (lateral ligament). Eversion sprain. This happens when the foot turns outward and the ankle rolls inward. It affects the ligament on the inner side of the foot (medial ligament). What are the causes? This condition is often caused by accidentally rolling or twisting the ankle. What increases the risk? You are more likely to develop this condition if you play sports. What are the signs or symptoms? Symptoms of this condition include: Pain in your ankle. Swelling. Bruising. This may develop right after you sprain your ankle or 1 2 days later. Trouble standing or walking, especially when you turn or change directions. How is this diagnosed? This condition is diagnosed with: A physical exam. During the exam, your health care provider will press on certain parts of your foot and ankle and try to move them in certain ways. X-ray imaging. These may be taken to see how severe the sprain is and to check for broken bones. How is this treated? This condition may be treated with: A brace or splint. This is used to keep the ankle from moving until it heals. An elastic bandage. This is used to support the ankle. Crutches. Pain medicine. Surgery. This may be needed if the sprain is severe. Physical therapy. This may help to improve the range of motion in the ankle. Follow these instructions at home: If you have a brace or a splint: Wear the brace or splint as told by your health care provider. Remove it only as told by your health care provider. Loosen the brace or splint if your toes tingle, become numb, or turn cold and blue. Keep the brace or splint clean. If the brace or splint is not waterproof: ?Do not let it get wet. ?Cover it with a watertight covering when you take a bath or a shower. If you have an elastic bandage (dressing): Remove it to shower or bathe. Try not to move your ankle much, but wiggle your toes from time to time. This helps to prevent swelling. Adjust the dressing to make it more comfortable if it feels too tight. Loosen the dressing if you have numbness or tingling in your foot, or if your foot becomes cold andblue. Managing pain, stiffness, and swelling Take tywa-lxu-sczjdqd and prescription medicines only as told by your health care provider. For 2 3 days, keep your ankle raised (elevated) above the level of your heart as much as possible. If directed, put ice on the injured area: ?If you have a removable brace or splint, remove it as told by your health care provider. ?Put ice in a plastic bag. ?Place a towel between your skin and the bag. ?Leave the ice on for 20 minutes, 2 3 times a day. General instructions Rest your ankle. Do not use the injured limb to support your body weight until your health care provider says that you can. Use crutches as told by your health care provider. Do not use any products that contain nicotine or tobacco, such as cigarettes, e- cigarettes, and chewing tobacco. If you need help quitting, ask your health care provider. Keep all follow-up visits as told by your health care provider. This is important. Contact a health care provider if: You have rapidly increasing bruising or swelling. Your pain is not relieved with medicine. Get help right away if: Your foot or toes become numb or blue. You have severe pain that gets worse. Summary An ankle sprain is a stretch or tear in a ligament in the ankle. Ligaments are tissues that connectbones to each other. This condition is often caused by accidentally rolling or twisting the ankle. Symptoms include pain, swelling, bruising, and trouble walking. To relieve pain and swelling, put ice on the affected ankle, raise your ankle above the level of your heart, and use an elastic bandage. Keep all follow-up visits as told by your health care provider. This is important. This information is not intended to replace advice given to you by your health care provider. Make sure you discuss any questions you have with your health care provider. Document Revised: 07/05/2021 Document Reviewed: 07/05/2021 [employer] Patient Education 2022 [employer]. Follow Up Care 12/23/2022 13:12:33 With:Tomas FARRELL Address: [address] [place] [phone] Business (1) When:12/26/2022 14:57:41 Comments:Return to the emergency room if your pain gets worse or any new symptoms. [facility]07-31-2023 Evaluation + Plan noteExtracted from: Title:ED Note Author:Neva Newton, Didier Bray te:12/23/22 1. Right ankle sprain (S93.4 01A: Sprain of unspecified ligament of right ankle, initial encounter) 2. Right foot sprain (S93.601A: Unspecified sprain of right foot, initial encounter) Orders: acetaminophen, 650 mg = 2 tab(s), Tab, Oral, Once, Stop date 12/23/22 14:53:00 EDT, STAT, Start date 12/23/22 14:53:00 EDT, 12/23/22 14:53:00 EDT Rufina Wrap XR Ankle 3+ Views Right XR Foot 3+ Views Right Future Scheduled Tests Laboratory* Basic Metabolic Panel 04/25/22 [facility]04-05-2023 NotePROCEDURE: XR ANKLE RT MIN 3 VIEWS, XR FOOT RT MIN 3 VIEWS, XR TIB_FIB RT 2V COMPARISON: None. HISTORY: Pain of right ankle joint FINDINGS: BONES:No acute fracture or dislocation. Remote tibia and fibular fracture. Internal fixation of the tibia utilizing a medial plate and multiple screws. 34 degrees of the tibiotalar joint/ankle inversion with articulation of the medial talar dome with the mid tibial plafond. Severe degenerative changes of the foot. No acute fracture or dislocation SOFT TISSUES:Multiple surgical clips EFFUSION:None visible. OTHER: Negative. 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 HISTORY: Pain of right ankle joint FINDINGS: BONES:No acute fracture or dislocation. Remote tibia and fibular fracture. Internal fixation of the tibia utilizing a medial plate and multiple screws. 34 degrees of the tibiotalar joint/ankle inversion with articulation of the medial talar dome with the mid tibial plafond. Severe degenerative changes of the foot. No acute fracture or dislocation SOFT TISSUES:Multiple surgical clips EFFUSION:None visible. OTHER: Negative. 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 HISTORY: Pain of right ankle joint FINDINGS: BONES:No acute fracture or dislocation. Remote tibia and fibular fracture. Internal fixation of the tibia utilizing a medial plate and multiple screws. 34 degrees of the tibiotalar joint/ankle inversion with articulation of the medial talar dome with the mid tibial plafond. Severe degenerative changes of the foot. No acute fracture or dislocation SOFT TISSUES:Multiple surgical clips EFFUSION:None visible. OTHER: Negative. 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 female) PCP: Tomas Farrell, I discussed risks, benefits and alternatives of a telephone visit telemedicine consultation with the patient (and any accompanying persons) including the risks that the patient's personal health details and medical records will be discussed over real-time, synchronous, interactive audio technology,the visit will not be recorded without the express consent of both the provider and the patient, and that there are inherent diagnostic limitations compared to [id number] evaluations. We elected toproceed with the telephone visit telemedicine consultation. HPI Patient is interviewed over the phone. Audio quality was fair. Patient was hospitalized at [address] psychiatric unit in [facility] for breakthrough psychosis and florentin. Patient had been having a lot of medical issues and also stopped taking her medications specifically Klonopin and got hospitalized. Patient's Celexa thiothixene and Ambien was discontinued. Patient was started on a trial of Zyprexa as well as risperidone. Previously these trials have caused patient to have significant dystonia but during the hospitalization patient was reporting minimal issues. I think this is in patie nt's best interest that patient got hospitalized and his medications were switched. We have discussed switching medications in the past but because of patient's long list of allergies patient had always been hesitant. It has been about 4 years since previous psychiatric hospitalization. Patient wasdoing fairly okay with baseline stability on thiothixene and Celexa and Klonopin. As previously noted we had discussed that long-term issues related to Ambien use which had already been tapered down and 5 mg from 10 g p.o. daily as needed. I think it will benefit that the patient's is sleeping wellwith the help of Zyprexa now and Ambien has been discontinued. I am hoping that in the future patient's Klonopin can be tapered down to at least 0.5 mg 3 times daily. The patient does not report any akathisia or dystonic issues from the trial of Zyprexa and Risperdal we can always titrate them up to provide better mood stability. At this time patient is reporting that she is feeling decent. Patient denies any irritability. Patient reports minimal to no racing thoughts. Patient denies any concerning psychomotor agitation. Patient denies feeling hopeless or depressed at this time. Patient is not endorsing any auditory or visual hallucinations. She is not endorsing any paranoia or delusions. Patient is sleeping close to 6 to7 hours. Appetite is within normal limits. Patient denies any memory issues. She denies any distractibility. Patient denies any excessive worries or anxiety. Patient is not endorsing any active or passive suicidal ideation. Patient does request trial of Cogentin. We will add 1 mg of Cogentin twice daily. Patient reports she is taking care of ADLs. Son was also over the phone and he stated that after her discharge patient seems to be slowly returning to her baseline. Patient is interacting with her son and taking care of her ADLs according to him. Son is not witnessing any ongoing psychosis. Medications assessed: Medication changes as above. Patient is compliant. We will continue with the same plan as discharged from the hospital The following portions of the patient's history were reviewed and updated as appropriate: allergies, current medications, past family history, past medical history, past social history, past surgicalhistory and problem list. Review of Systems Constitutional: Negative. HENT: Negative. Eyes: Negative. Respiratory: Negative. Cardiovascular: Negative. Gastrointestinal: Negative. Endocrine: Negative. Genitourinary: Negative. Skin: Negative. Allergic/Immunologic: Negative. Neurological: Negative. Hematological: Negative. Patient's Medications New Prescriptions BENZTROPINE (COGENTIN) 1 MG TABLET Take 1 (one) tablet (1 mg total) by mouth 2 (two) times a day . OLANZAPINE (ZYPREXA) 5 MG TABLET Take 1 (one) tablet (5 mg total) by mouth nightly . RISPERIDONE (RISPERDAL) 2 MG TABLET Take 1 (one) tablet (2 mg total) by mouth 2 (two) times a day . Previous Medications ALBUTEROL (PROVENTIL HFA;VENTOLIN HFA) 90 MCG/ACTUATION INHALER Inhale 1 puff every 4 (four) hours as needed for wheezing CELECOXIB (CELEBREX) 200 MG CAPSULE Take 200 mg by mouth daily CYANOCOBALAMIN (B-12) 1,000 MCG/ML INJECTION Inject 1,000 mcg into the shoulder, thigh, or buttocksevery 30 (thirty) days CYCLOBENZAPRINE (FLEXERIL) 10 MG TABLET Take 10 mg by mouth 2 (two) times a day DIPHENHYDRAMINE-ACETAMINOPHEN (TYLENOL PM) 25-500 MG TAB Take 1 tablet by mouth nightly as needed ELIQUIS 5 MG TAB Take 5 mg by mouth daily LISINOPRIL (PRINIVIL,ZESTRIL) 20 MG TABLET Take 20 mg by mouth daily LYRICA 150 MG CAPSULE Take 150 mg by mouth 2 (two) times a day NALOXONE (NARCAN) 4 MG/ACTUATION SPRY Administer 1 spray into one nostril for known or suspected opioid overdose. If patient worsens or does not respond, may repeat in 2-3 minutes. . OXYCODONE-ACETAMINOPHEN (PERCOCET) 5-325 MG PER TABLET Take 1 tablet by mouth every 4 to 6 hours asneeded PANTOPRAZOLE (PROTONIX) 40 MG TABLET Take 40 mg by mouth daily PROMETHAZINE (PHENERGAN) 25 MG TABLET Take 25 mg by mouth every 8 (eight) hours Modified Medications Modified Medication Previous Medication CLONAZEPAM (KLONOPIN) 1 MG TABLET clonazePAM (KLONOPIN) 1 MG tablet Take 1 (one) tablet (1 mg total) by mouth 3 (three) times a day as needed for anxiety . Take 1 (one) tablet (1 mg total) by mouth 3 (three) times a day as needed for anxiety . TRAZODONE (DESYREL) 50 MG TABLET traZODone (DESYREL) 150 MG tablet Take 1 (one) tablet (50 mg total) by mouth nightly . Take 1 (one) tablet (150 mg total) by mouth nightly . Discontinued Medications CITALOPRAM (CELEXA) 20 MG TABLET Take 1 (one) tablet (20 mg total) by mouth daily . THIOTHIXENE (NAVANE) 2 MG CAPSULE Take 1 (one) capsule (2 mg total) by mouth at bedtime . ZOLPIDEM (AMBIEN) 5 MG TABLET Take 1 (one) tablet (5 mg total) by mouth nightly as needed for sleep. Assessment/Plan: Diagnoses and all orders for this visit: Post traumatic stress disorder (PTSD) Bipolar 1 disorder, most recent episode severe manic, with psychosis (HCC) Panic disorder with agoraphobia MSE: Patient is engaged over the phone. Speech is within normal limits. Patient reports 'okay' mood. Patient denies any ongoing suicidal ideation. Patient denies any ongoing flight of ideas or racing thoughts. Denies any perceptual disturbances. Denies any ongoing homicidal ideation. Patient's impulse control has been fair. Patient's memory is baseline intact. Attention/concentration: Adequate, insight and judgment: Adequate, language/intellect: Average Treatment Plan: Pharmacological management: Alternative medication plans were discussed with the patient/guardian. All relevant side effects and potential adverse effects were discussed with the patient/guardian. Standard cautions and potential benefits were discussed. FDA label and OFF label uses of medications were discussed. Patient/Guardian consented to the start/continuation of the following: Continue Klonopin 1 mg 3 times daily for panic disorder Continue Zyprexa 5 mg p.o. daily at bedtime Continue risperidone 2 mg p.o. twice daily Start Cogentin 1 mg p.o. twice daily Ambien, Celexa and thiothixene has been discontinued during her psychiatric hospitalization. Will monitor side effects and progress and adjust medications appropriately Crisis Intervention plan was discussed and agreed upon. Patient/Guardian will call 911 in case of emergency. Emergency contact information was provided to the patient/guardian. Laboratory and other tests: See orders. Psychotherapy: None Follow up as scheduled or return early if needed. School or community referral: None Treatment Goals and Objectives discussed. Other Referrals/Consults/Psychological Testing: None I have spent 15 minutes with the patient reviewing the HPI and Plan of Care. documented in this [id number] NoteHNO ID: [id number] Author: Ike Cervantes APRN.TIMBER MANAGEMENT PROFESSOR Service: ? Author Type: Nurse Specialist Type: Progress Notes Filed: 06/27/2022 10:49 AM Note Text: [facility] NOTE NAME: CAS DYE NO.: [id number] DATE OF SERVICE: 06/24/2022 [facility] DATE OF : 1950 REASON FOR VISIT: The patient is a resident of [facility]. This is a skilled visit for encephalopathy, major depressive disorder, and other medical concerns. Upon entering room, found the patient calm, alert, up walking in room. The patient does not appear to be in distress or discomfort. The patient is cooperative with examination process. The patient states had difficulties last night. States she just been having problems with her catheter. States that the catheter has been pulling away from the leg bag and then finds herself with urine all over herself. The patient states no urinary symptoms. The patient states has been having episodes of constipation and requests laxative. States no other complaints of nausea. The patient states no pain, cough, shortness of breath. No fever, chills. States she has been able to eat all of her meals. States has been drinking fluids. Staff reports no behavioral issues for the patient. MEDICATIONS: Medications have been reviewed. EXAMINATION: Temp 97.6, blood pressure 119/71, pulse 102, respirations 18, pulse ox 94%. Weight 123 pounds. Respiratory: Respirations are easy and unlabored with the patient at rest. Lung sounds are clear. Heart: Heart rate and rhythm are regular. Abdomen: Soft, nontender with palpation. Bowel sounds present x4. Extremities: Non-edematous. Genitourinary: With nurse Irma saini, in room, visualized the catheter. Catheter hub was extremely short and not far past the labia, appears to be pulling on the catheter bag. There is clear, yellow urine noted in the catheter bag. IMPRESSION AND PLAN: 1. Encephalopathy with major depressive disorder and suicidal ideations. No suicidal ideations are recognized since the patient has been in [facility]. Currently on Risperdal, clonazepam routinely. 2. Bipolar disorder. Again, the patient is on Risperdal, clonazepam, olanzapine. The patient does follow with Psychiatric services. 3. Hyponatremia. Sodium 135. On sodium chloride. 4. Syndrome of inappropriate secretion of antidiuretic hormone. Monitor fluid intakes, urinary output. 5. Chronic obstructive pulmonary disease. No respiratory concerns are identified. 6. Urinary retention. Staff has been asked to replace urinary catheter aside from catheter bag leaking. No other complaints of urinary symptoms. 7. Constipation. The patient will have senna daily, hold for diarrhea; Dulcolax suppository, Fleets Enema as needed. DICTATED BY: KYA Bunn/Gwen JOB# [id number] cc: [facility]01-30-2023 History of Present illness Narrative* Ike Cervantes APRN.TIMBER MANAGEMENT PROFESSOR - 06/24/2022 12:00 AM EST [facility] NOTE NAME: LUIS DYEFERMIN NO.: [id number] DATE OF SERVICE: 06/24/2022 [facility] DATE OF : 1950 REASON FOR VISIT: The patient is a resident of [facility]. This is a skilled visit for encephalopathy, major depressive disorder, and other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 BID, Routine, Start date 04/17/22 21:00:00 EST, 04/17/22 17:02:00 EST ferrous sulfate, 325 mg = 1 tab(s), Tab, Oral, TID, Routine, Start date 04/17/22 22:00:00 EST, 04/17/22 17:04:00 EST fluticasone nasal, 0.1 mg, 2 spray(s), Britt, Nasal, Daily, Routine, Start date 04/18/22 9:00:00 EST heparin, 5,000 unit(s) = 1 mL, Injection, SubCutaneous, BID for 30 day(s), Stop date 05/17/22 21:59:00 EST, Routine, Start date 04/17/22 22:00:00 EST Misc Prescription, Sodium Chloride 1 g oral tablet, 1g, Oral, Daily, Stop date 05/18/22 17:00:00 EST, Routine, Start date 04/19/22 9:00:00 EST morphine, 2 mg = 1 mL, Injection, IV Push, q6hr PRN Pain for 5 day(s), Stop date 04/22/22 18:05:00 EST, Routine, Start date 04/17/22 18:06:00 EST, 04/17/22 18:06:00 EST trazodone, 150 mg = 3 tab(s), Tab, Oral, Once a day (at bedtime), Routine, Start date 04/17/22 21:00:00 EST, 04/17/22 17:03:00 EST Basic Metabolic Panel Below the Knee Intermittent Pneumatic Compression Device Cardiac Monitoring eGFR Evaluate Need For Continued Telemetry Extra Lav Tube Intake and Output Magnesium Level Notify Provider Vital Signs Notify Provider Vital Signs Osmolality Osmolality Urine Oxygen Protocol Precautions Pulse Oximetry Regular Diet Saline Lock Convert From IV Sodium Level Urine Vital Signs Weight This report was transcribed using voice recognition software , Every effort was made to ensure accuracy , however, inadvertently computerized runstitching machine operator mistakes may be present . Extracted from: Title:Admission H & P Author:Jeanette RAMOS, Abeer Date:04/17/22 Hyponatremia - Acute on chronic baseline around 130, non compliance with home meds -Fluid restrict to 1.5 L /day , discussed over the phone with Dr. Orozco -Check osmol urine and blood, check urine Na Na level Q4 -Consult nephrology: communications project manager consult for placement / PT / OT CKD Stage 3 Stable -No evidence of DICKSON -Avoid nephrotoxic drugs, COPD -Chronic, -Duo nebs PRN HTN -Chronic, -Continue w/home medications DORA -Chronic, not compliant w/CPAP -Monitor Bipolar disorder PTSD -Chronic, denies suicidal ideation, homicidal ideation, suicidal plan or homicidal plan Chronic pain The patient does complain of generalized chronic pain as she does have implantable pain pump that is currently out of morphine for the past two weeks 1. Hyponatremia (E87.1: Hypo-osmolality and hyponatremia) Ordered: Communication Order Sodium Level Nausea (R11.0: Nausea) Ordered: ondansetron, 4 mg = 1 tab(s), Tab-Dis, Oral, TID PRN Nausea, Routine, Start date 04/17/22 17:03:00 EST, 04/17/22 17:03:00 EST Orders: acetaminophen, 650 mg = 2 tab(s), Tab, Oral, q4hr PRN Pain, Routine, Start date 04/17/22 17:01:00 EST, 04/17/22 17:01:00 EST amlodipine, 5 mg = 1 tab(s), Tab, Oral, Daily, Routine, Start date 04/18/22 9:00:00 EST, hold for SBP less than 100 diazepam, 10 mg = 2 tab(s), Tab, Oral, TID PRN Anxiety, Routine, Start date 04/17/22 17:31:00 EST, 04/17/22 17:31:00 EST docusate, 100 mg = 1 cap(s), Cap, Oral, BID, Routine, Start date 04/17/22 21:00:00 EST, 04/17/22 17:02:00 EST ferrous sulfate, 325 mg = 1 tab(s), Tab, Oral, TID, Routine, Start date 04/17/22 22:00:00 EST, 04/17/22 17:04:00 EST fluticasone nasal, 0.1 mg, 2 spray(s), Britt, Nasal, Daily, Routine, Start date 04/18/22 9:00:00 EST morphine, 2 mg = 1 mL, Injection, IV Push, q6hr PRN Pain for 5 day(s), Stop date 04/22/22 18:05:00 EST, Routine, Start date 04/17/22 18:06:00 EST, 04/17/22 18:06:00 EST trazodone, 150 mg = 3 tab(s), Tab, Oral, Once a day (at bedtime), Routine, Start date 04/17/22 21:00:00 EST, 04/17/22 17:03:00 EST Consult to Nephrology Osmolality Osmolality Urine Regular Diet Sodium Level Urine This report was transcribed using voice recognition software , Every effort was made to ensure accuracy , however, inadvertently computerized runstitching machine operator mistakes may be present . Extracted from: Title:ED Note Author:Malick Ho PA-C te:04/17/22 1. Hyponatremia (E87.1: Hypo -osmolality and hyponatremia) Orders: morphine, 4 mg = 2 mL, Injection, IV Push, Once, Stop date 04/17/22 10:28:00 EST, STAT, Start date 04/17/22 10:28:00 EST, 04/17/22 10:28:00 EST ondansetron, 4 mg = 1 tab(s), Tab-Dis, Oral, Once, Stop date 04/16/22 13:33:00 EST, STAT, Start date 04/16/22 13:33:00 EST, 04/16/22 13:33:00 EST ondansetron, 4 mg = 2 mL, Injection, IV Push, Once, Stop date 04/17/22 10:28:00 EST, STAT, Start date 04/17/22 10:28:00 EST, 04/17/22 10:28:00 EST oxycodone, 5 mg = 1 tab(s), Tab, Oral, Once, Stop date 04/16/22 13:33:00 EST, STAT, Start date 04/16/22 13:33:00 EST, 04/16/22 13:33:00 EST Sodium Chloride 0.9% intravenous solution, 1,000 mL, Soln-IV, IV, Once, Stop date 04/17/22 10:28:00 EST, STAT, Start date 04/17/22 10:28:00 EST, mL/hr, Infuse over 61, minute(s) Automated Diff Basic Metabolic Panel CBC w/ Auto Diff CT Head or Brain w/o Contrast ECG 12 Lead Adult ED Physician consult Hospitalist for continued care eGFR Extra Blue Tube Extra SST Tube Troponin 0 Hr. Troponin 3 Hr. Troponin 6 Hr. Troponin 9 Hr. UA With Cult Reflex XR Chest Single View XR Hip 2-3 Views Left + Pelvis Future Appointments Appointment Date:04/29/2022 11:40:00 AM Scheduled Provider:Tomas FARRELL DO Location:[facility] Appointment Type: Open Diagnostic Tests Pending * Cortisol 04/18/22 Future Scheduled Tests Laboratory* TIBC Calculated 08/06/21 * Sodium Level 12/20/21 * Ferritin 08/06/21 * Folate Level 08/06/21 * Hemoglobin 12/20/21 * Iron Level 08/06/21 * Lipase Level 08/06/21 * Vitamin B12 Level 08/06/21 Radiology* XR Foot 3+ Views Right 07/25/21 [facility]11-25-2022 Hospital Discharge instructions Patient Education 04/19/2022 11:47:10 Hyponatremia, [id number] Hyponatremia Hyponatremia is when the amount of salt (sodium) in your blood is too low. When salt levels are low, your body may take in extra water. This can cause swelling throughout the body. The swelling oftenaffects the brain. What are the causes? This condition may be caused by: Certain medical problems or conditions. Vomiting a lot. Having watery poop (diarrhea) often. Certain medicines or illegal drugs. Not having enough water in the body (dehydration). Drinking too much water. Eating a diet that is low in salt. Large muñoz on your body. Too much sweating. What increases the risk? You are more likely to get this condition if you: Have long-term (chronic) kidney disease. Have heart failure. Have a medical condition that causes you to have watery poop often. Do very hard exercises. Take medicines that affect the amount of salt is in your blood. What are the signs or symptoms? Symptoms of this condition include: Headache. Feeling like you may vomit (nausea). Vomiting. Being very tired (lethargic). Muscle weakness and cramps. Not wanting to eat as much as normal (loss of appetite). Feeling weak or light-headed. Severe symptoms of this condition include: Confusion. Feeling restless (agitation). Having a fast heart rate. Passing out (fainting). Seizures. Coma. How is this treated? Treatment for this condition depends on the cause. Treatment may include: Getting fluids through an IV tube that is put into one of your veins. Taking medicines to fix the salt levels in your blood. If medicines are causing the problem, your medicines will need to be changed. Limiting how much water or fluid you take in. Monitoring in the hospital to watch your symptoms. Follow these instructions at home: Take [id number]-spoyxfy and prescription medicines only as told by your doctor. Many medicines can make this condition worse. Talk with your doctor about any medicines that you are taking. Eat and drink exactly as you are told by your doctor. ?Eat only the foods you are told to eat. ?Limit how much fluid you take. Do not drink alcohol. Keep all follow-up visits as told by your doctor. This is important. Contact a doctor if: You feel more like you may vomit. You feel more tired. Your headache gets worse. You feel more confused. You feel weaker. Your symptoms go away and then they come back. You have trouble following the diet instructions. Get help right away if: You have a seizure. You pass out. You keep having watery poop. You keep vomiting. Summary Hyponatremia is when the amount of salt in your blood is too low. When salt levels are low, you can have swelling throughout the body. The swelling mostly affects the brain. Treatment depends on the cause. Treatment may include getting IV fluids, medicines, or not drinkingas much fluid. This information is not intended to replace advice given to you by your health care provider. Make sure you discuss any questions you have with your health care provider. Document Released: 01/22/2012 Document Revised: 07/29/2019 Document Reviewed: 04/15/2019 [employer] Patient Education 2020 [employer]. Follow Up Care 04/17/2022 10:15:25 With:Pain Clinic: [facility] [phone] Address:Unknown When: Unknown Comments:Call for followup appointment - to have pain pump filled With:Tomas FARRELL Address: [address] [place] [address]- Business (1) When:2 to 4 days [facility]11-16-2022 Evaluation + Plan noteExtracted from: Title:ED Note Author:Malick Ho PA-C te:04/10/22 1. Dysuria (R30.0: Dysuria) Orders: diazepam, 5 mg = 1 tab(s), Tab, Oral, Once, Stop date 04/10/22 17:47:00 EST, STAT, Start date 04/10/22 17:47:00 EST, 04/10/22 17:47:00 EST UA With Cult Reflex Future Appointments Appointment Date:04/29/2022 11:40:00 AM Scheduled Provider:Tomas FARRELL DO Location:[facility] Appointment Type: Open Future Scheduled Tests Laboratory* TIBC Calculated 08/06/21 * Sodium Level 12/20/21 * Ferritin 08/06/21 * Folate Level 08/06/21 * Hemoglobin 12/20/21 * Iron Level 08/06/21 * Lipase Level 08/06/21 * Vitamin B12 Level 08/06/21 Radiology* XR Foot 3+ Views Right 07/25/21 [facility]11-07-2022 Miscellaneous Notes* Telephone Encounter - Adriane Fischer LPN - 04/01/2022 1:51 PM EST Patient was transferred to this technical writer, screaming in the telephone saying that she needs more catheters. She stated in a previous phone call that the last batch of catheters were stolen out of her car. Reached out to [address] [place] [address] to see what needs to take place for catheters to be delivered to patientat this time. Patients son will be coming to [facility] to slate picker sample catheters, until patient receives hers again. * Telephone Encounter - Irma Burton RN - 04/01/2022 1:28 PM EST -Pt Verified by Name and Date of -pt calling to report needs catheters - pt out and states 180 requesting script. -pt states needs to come in and get more training to not have to use so many catheters. -call transferred to [facility]OL nurse. [facility] + Plan note Diagnostic Tests Pending * Urine Culture 03/28/22 Future Scheduled Tests Laboratory* TIBC Calculated 08/06/21 * Sodium Level 12/20/21 * Ferritin 08/06/21 * Folate Level 08/06/21 * Hemoglobin 12/20/21 * Iron Level 08/06/21 * Lipase Level 08/06/21 * Vitamin B12 Level 08/06/21 Radiology* XR Foot 3+ Views Right 07/25/21 [facility]10-10-2022 Hospital Discharge instructions Patient Education 03/04/2022 13:54:50 Antibiotic Medicine, Adult Antibiotic Medicine, Adult Antibiotic medicines are used to treat infections caused by bacteria, such as strep throat and urinary tract infection (UTI). Antibiotic medicines will not work for viral illnesses, such as colds or the flu (influenza). They work by killing the bacteria that is making you sick. Antibiotics can alsohave serious side effects. It is important that you take antibiotic medicines safely and only when needed. When do I need to take antibiotics? Antibiotics are medicines that treat bacterial infections. You may need antibiotics for: UTI. Strep throat. Meningitis. This infection affects the spinal cord and brain. Bacterial sinusitis. Serious lung infection. You may start antibiotics while your health care provider waits for test results to come back. Common tests may include throat, urine, blood, or mucus culture. Your health care provider may change orstop the antibiotic depending on your test results. When are antibiotics not needed? You do not need antibiotics for most common illnesses. These illnesses may be caused by a virus, not a bacteria. You do not need antibiotics for: The common cold. Influenza. Sore throat. Discolored mucus. Bronchitis. Antibiotics are not always needed for all bacterial infections. Many of these infections clear up without antibiotic treatment. Do not ask for or take antibiotics when they are not necessary. How long should I take the antibiotic? You must take the entire prescription. Continue to take your antibiotic for as long as told by yourhealth care provider. Do not stop taking it even if you start to feel better. If you stop taking ittoo soon: You may start to feel sick again. Your infection may become harder to treat. Complications may develop. Each course of antibiotics needs a different amount of time to work. Some antibiotic courses last only a few days. Some last about a week to 10 days. In some cases, you may need to take antibiotics for a few weeks to completely treat the infection. What if I miss a dose? Try not to miss any doses of medicine. If you miss a dose, call your health care provider or pharmacist for advice. Sometimes it is okay to take the missed dose as soon as possible. What are the risks of taking antibiotics? Most antibiotics can cause an infection called Clostridioides difficile (C. difficile or C. diff), which causes severe diarrhea. This infection happens when the antibiotics kill the healthy bacteria in your intestines. This allows C. diff to grow. The infection needs to be treated right away. Let your health care provider know if: You have diarrhea while taking an antibiotic. You have diarrhea after you stop taking an antibiotic. C. diff infection can start weeks after stopping the antibiotic. Taking an antibiotic also puts you at risk for getting a bacteria that does not respond to medicine(antibiotic-resistant infection) in the future. Antibiotics can cause bacteria to change so that ifthe antibiotic is taken again, the medicine is not able to kill the bacteria. These infections can be more serious and, in some cases, life-threatening. Do antibiotics affect control? control pills may not work while you are on antibiotics. If you are taking control pills, continue taking them as usual and use a second form of control, such as a condom, to avoid unwanted . Continue using the second form of control until your health care provider says you can stop. What else should I know about taking antibiotics? It is important for you to take antibiotics exactly as told. Make sure that you: Take the entire course of antibiotic that was prescribed. Do not stop taking your antibiotics even if your symptoms improve. Take the correct amount of medicine each day. Ask your health care provider: ?How long to wait in between doses. ?If the antibiotic should be taken with food. ?If there are any foods, drinks, or medicines that you should avoid while taking the antibiotics. ?If there are any side effects you should be aware of. Only use the antibiotics prescribed for you by your health care provider. Do not use antibiotics prescribed for someone else. Drink a large glass of water along with the antibiotics. Ask the pharmacist for a syringe, cup, or spoon that properly measures the antibiotics. Throw away any leftover medicine. Contact a health care provider if: Your symptoms get worse. You have new joint pain or muscle aches that begin after starting the antibiotic. When should I seek immediate medical care? You have signs of a serious allergic reaction to antibiotics. If you have signs of a severe allergic reaction, stop taking the antibiotic right away. Signs may include: ?Hives, which are raised, itchy, red bumps on the skin. ?Skin rash. ?Trouble breathing. ?A wheezing sound when you breathe. ?Swelling anywhere on your body. ?Feeling dizzy. ?Vomiting. Your urine turns dark or becomes blood-colored. Your skin turns yellow. You bruise or bleed easily. You have severe diarrhea and abdominal cramps. You have a severe headache. Summary Antibiotic medicines are used to treat infections caused by bacteria, such as strep throat and UTIs. It is important that you take antibiotic medicines only when needed. Your health care provider may change or stop the antibiotic depending on your test results. Most antibiotics can cause an infection called Clostridioides difficile (C. difficile or C. diff), which causes severe diarrhea. Let your health care provider know if you develop diarrhea while taking an antibiotic. Take the entire course of antibiotic that was prescribed. This information is not intended to replace advice given to you by your health care provider. Make sure you discuss any questions you have with your health care provider. Document Released: 01/22/2005 Document Revised: 11/10/2018 Document Reviewed: 05/13/2017 [employer] Patient Education 2020 [employer]. 03/04/2022 13:54:46 Urinary Tract Infection, Adult Urinary Tract Infection, Adult A urinary tract infection (UTI) is an infection of any part of the urinary tract. The urinary tractincludes the kidneys, ureters, bladder, and urethra. These organs make, store, and get rid of urinein the body. Your health care provider may use other names to describe the infection. An upper UTI affects the ureters and kidneys (pyelonephritis). A lower UTI affects the bladder (cystitis) and urethra (urethritis). What are the causes? Most urinary tract infections are caused by bacteria in your genital area, around the entrance to your urinary tract (urethra). These bacteria grow and cause inflammation of your urinary tract. What increases the risk? You are more likely to develop this condition if: You have a urinary catheter that stays in place (indwelling). You are not able to control when you urinate or have a bowel movement (you have incontinence). You are female and you: ?Use a spermicide or diaphragm for control. ?Have low estrogen levels. ?Are . You have certain genes that increase your risk (genetics). You are sexually active. You take antibiotic medicines. You have a condition that causes your flow of urine to slow down, such as: ?An enlarged prostate, if you are male. ?Blockage in your urethra (stricture). ?A kidney stone. ?A nerve condition that affects your bladder control (neurogenic bladder). ?Not getting enough to drink, or not urinating often. You have certain medical conditions, such as: ?Diabetes. ?A weak disease-fighting system (immunesystem). ?Sickle cell disease. ?Gout. ?Spinal cord injury. What are the signs or symptoms? Symptoms of this condition include: Needing to urinate right away (urgently). Frequent urination or passing small amounts of urine frequently. Pain or burning with urination. Blood in the urine. Urine that smells bad or unusual. Trouble urinating. Cloudy urine. Vaginal discharge, if you are female. Pain in the abdomen or the lower back. You may also have: Vomiting or a decreased appetite. Confusion. Irritability or tiredness. A fever. Diarrhea. The first symptom in older adults may be confusion. In some cases, they may not have any symptoms until the infection has worsened. How is this diagnosed? This condition is diagnosed based on your medical history and a physical exam. You may also have other tests, including: Urine tests. Blood tests. Tests for sexually transmitted infections (STIs). If you have had more than one UTI, a cystoscopy or imaging studies may be done to determine the cause of the infections. How is this treated? Treatment for this condition includes: Antibiotic medicine. Hipm-wiq-xuaevbm medicines to treat discomfort. Drinking enough water to stay hydrated. If you have frequent infections or have other conditions such as a kidney stone, you may need to see a health care provider who specializes in the urinary tract (urologist). In rare cases, urinary tract infections can cause sepsis. Sepsis is a life- threatening condition that occurs when the body responds to an infection. Sepsis is treated in the hospital with IV antibiotics, fluids, and other medicines. Follow these instructions at home: Medicines Take pyvr-fhp-psqmjgg and prescription medicines only as told by your health care provider. If you were prescribed an antibiotic medicine, take it as told by your health care provider. Do notstop using the antibiotic even if you start to feel better. General instructions Make sure you: ?Empty your bladder often and completely. Do not hold urine for long periods of time. ?Empty your bladder after sex. ?Wipe from front to back after a bowel movement if you are female. Use each tissue one time when you wipe. Drink enough fluid to keep your urine pale yellow. Keep all follow-up visits as told by your health care provider. This is important. Contact a health care provider if: Your symptoms do not get better after 1 2 days. Your symptoms go away and then return. Get help right away if you have: Severe pain in your back or your lower abdomen. A fever. Nausea or vomiting. Summary A urinary tract infection (UTI) is an infection of any part of the urinary tract, which includes the kidneys, ureters, bladder, and urethra. Most urinary tract infections are caused by bacteria in your genital area, around the entrance to your urinary tract (urethra). Treatment for this condition often includes antibiotic medicines. If you were prescribed an antibiotic medicine, take it as told by your health care provider. Do notstop using the antibiotic even if you start to feel better. Keep all follow-up visits as told by your health care provider. This is important. This information is not intended to replace advice given to you by your health care provider. Make sure you discuss any questions you have with your health care provider. Document Released: 02/19/2006 Document Revised: 04/29/2019 Document Reviewed: 11/19/2018 [employer] Patient Education 2020 [employer]. Follow Up Care 03/04/2022 12:12:59 With:Tomas FARRELL DO, FAM Address: [address] [place] [phone]- When: Unknown [facility] 10-10-2022 Evaluation + Plan note Diagnostic Tests Pending * Urine Culture 03/04/22 Future Scheduled Tests Laboratory* TIBC Calculated 08/06/21 * Sodium Level 12/20/21 * Basic Metabolic Panel 03/27/21 * Ferritin 08/06/21 * Folate Level 08/06/21 * Hemoglobin 12/20/21 * Iron Level 08/06/21 * Lipase Level 08/06/21 * Vitamin B12 Level 08/06/21 Radiology* XR Foot 3+ Views Right 07/25/21 [facility]09-26-2022 Hospital Discharge instructions Patient Education 02/17/2022 22:48:16 Accidental Drug Poisoning, Adult Accidental Drug Poisoning, Adult Accidental drug poisoning happens when a person accidentally takes too much of a substance, such asa prescription medicine, an bfnw-yvy-quaqawx medicine, a vitamin, a supplement, or an illegal drug.The effects of drug poisoning can be mild, dangerous, or even deadly. What are the causes? This condition is caused by taking too much of a medicine, illegal drug, or other substance. It often results from: Lack of knowledge about a substance. Using more than one substance at the same time. An error made by the health care provider who prescribed the substance. An error made by the pharmacist who filled the prescription. A lapse in memory, such as forgetting that you have already taken a dose of the medicine. Suddenly using a substance after a long period of not using it. The following substances and medicines are more likely to cause an accidental drug poisoning: Medicines that treat mental problems (psychotropic medicines). Pain medicines. Cocaine. Heroin. Multivitamins that contain iron. Wcif-kdu-lrdltuu cold and cough medicines. What increases the risk? This condition is more likely to occur in: Elderly adults. Elderly adults are at risk because they may: ?Be taking many different medicines. ?Have difficulty reading labels. ?Forget when they last took their medicine. People who use illegal drugs. People who drink alcohol while using illegal drugs or certain medicines. People with certain mental health conditions. What are the signs or symptoms? Symptoms of this condition depend on the substance and the amount that was taken. Common symptoms include: Behavior changes, such as confusion. Sleepiness. Weakness. Slowed breathing. Nausea and vomiting. Seizures. Very large or small eye pupil size. A drug poisoning can cause a very serious condition in which your blood pressure drops to a low level (shock). Symptoms of shock include: Cold and clammy skin. Pale skin. Blue lips. Very slow breathing. Extreme sleepiness. Severe confusion. Dizziness or fainting. How is this diagnosed? This condition is diagnosed based on: Your symptoms. You will be asked about the substances you took and when you took them. A physical exam. You may also have other tests, including: Urine tests. Blood tests. An electrocardiogram (ECG). How is this treated? This condition may need to be treated right away at the hospital. Treatment may involve: Getting fluids and electrolytes through an IV. Having a breathing tube inserted in your airway (endotracheal tube) to help you breathe. Taking medicines. These may include medicines that: ?Absorb any substance that is in your digestive system. ?Block or reverse the effect of the substance that caused the drug poisoning. Having your blood filtered through an artificial kidney machine (hemodialysis). Ongoing counseling and mental health support. This may be provided if you used an illegal drug. Follow these instructions at home: Medicines Take sved-clc-wlvhfdj and prescription medicines only as told by your health care provider. Before taking a new medicine, ask your health care provider whether the medicine: ?May cause side effects. ?Might react with other medicines. Keep a list of all the medicines that you take, including udtd-bns-pzzfivw medicines, vitamins, supplements, and herbs. Bring this list with you to all of your medical visits. General instructions Drink enough fluid to keep your urine pale yellow. If you are working with a counselor or mental health professional, make sure to follow his or her instructions. Do not drink alcohol if: ?Your health care provider tells you not to drink. ?You are , may be , or are planning to become . If you drink alcohol, limit how much you have: ?0 1 drink a day for women. ?0 2 drinks a day for men. Be aware of how much alcohol is in your drink. In the [place] one drink equals one typical bottle of beer (12 oz), one-half glass of wine (5 oz), or one shot of hard liquor (1 oz). Keep all follow-up visits as told by your health care provider. This is important. How is this prevented? Get help if you are struggling with: ?Alcohol or drug use. ?Depression or another mental health problem. Keep the phone number of your local poison control center near your phone or on your cell phone. The hotline of the [employer] Poison Control Centers is . Store all medicines in safety containers that are out of the reach of children. Read the drug inserts that come with your medicines. Create a system for taking your medicine, such as a pillbox, that will help you avoid taking too much of the medicine. Do not drink alcohol while taking medicines unless your health care provider approves. Do not use illegal drugs. Do not take medicines that are not prescribed for you. Contact a health care provider if: Your symptoms return. You develop new symptoms or side effects after taking a medicine. You have questions about possible drug poisoning. Call your local poison control center at . Get help right away if: You think that you or someone else may have taken too much of a substance. You or someone else is having symptoms of drug poisoning. Summary Accidental drug poisoning happens when a person accidentally takes too much of a substance, such asa prescription medicine, an iexa-dai-psitldh medicine, a vitamin, a supplement, or an illegal drug. The effects of drug poisoning can be mild, dangerous, or even deadly. This condition is diagnosed based on your symptoms and a physical exam. You will be asked to tell your health care provider which substances you took and when you took them. This condition may need to be treated right away at the hospital. This information is not intended to replace advice given to you by your health care provider. Make sure you discuss any questions you have with your health care provider. Document Released: 07/26/2005 Document Revised: 04/24/2018 Document Reviewed: 04/13/2018 [employer] Patient Education 2020 [employer]. Follow Up Care 02/17/2022 16:00:07 With:Tomas FARRELL Address: [address] [address] Business (1) When:02/20/2022 Comments:Follow-up with your primary care doctor next 2 to 3 days for further evaluation management. [facility]09-25-2022 Evaluation + Plan noteExtracted from: Title:ED Note Author:Neva Newton, Didier Bray te:02/17/22 1. Accidental overdose (T50. 901A: Poisoning by unspecified drugs, medicaments and biological substances, accidental (unintentional), initial encounter) 2. Hyponatremia (E87.1: Hypo-osmolality and hyponatremia) Orders: Sodium Chloride 0.9% intravenous solution, 1,000 mL, Soln-IV, IV, Once, Stop date 02/17/22 18:28:00 EDT, STAT, Start date 02/17/22 18:28:00 EDT, mL/hr, Infuse over 61, minute(s) Sodium Chloride 0.9% intravenous solution, Soln-IV, Misc, Once, Stop date 02/17/22 18:58:04 EDT, Physician Stop, 02/17/22 18:58:04 EDT Acetaminophen Level Automated Diff CBC w/ Auto Diff Communication Order Comprehensive Metabolic Panel Consult to Mental Health Drug Screen Urine ECG 12 Lead Adult eGFR Ethanol Level Extra Blue Tube Extra SST Tube Salicylate Level Addendum by Juana Taylor DO on February 17, 2022 22:42:08 EDT Patient signed out to me pending evaluation and observation for her overdose. Patient denied suicidal homicidal ideation was observed until 2200. Due to concerns for possible intentional ingestion [facility] was consulted. Patient refused evaluation by [facility] and patient's son signed out AGAINST MEDICAL ADVICE. Patient is leaving against medical advice. Patient is awake and alert to person place and time. Patient is of decisional capacity. Patient does comprehend and understand the risks of leaving against medical advice and the benefits of further testing, treatment, and evaluation. Patient is still leaving against medical advice. I did spend an extended period of time trying to convince the patient against leaving against medical advice. Future Appointments Appointment Date:03/04/2022 11:20:00 AM Scheduled Provider:Tomas FARRELL DO Location:[facility] Appointment Type: Open Future Scheduled Tests Laboratory* TIBC Calculated 08/06/21 * Sodium Level 12/20/21 * Basic Metabolic Panel 03/27/21 * Ferritin 08/06/21 * Folate Level 08/06/21 * Hemoglobin 12/20/21 * Iron Level 08/06/21 * Lipase Level 08/06/21 * Vitamin B12 Level 08/06/21 Radiology* XR Foot 3+ Views Right 07/25/21 [facility]09-23-2022 Hospital Discharge instructions Patient Education 02/15/2022 15:45:16 Managing Anxiety, Adult Managing Anxiety, Adult After being diagnosed with an anxiety disorder, you may be relieved to know why you have felt or behaved a certain way. You may also feel overwhelmed about the treatment ahead and what it will mean for your life. With care and support, you can manage this condition and recover from it. How to manage lifestyle changes Managing stress and anxiety Stress is your body's reaction to life changes and events, both good and bad. Most stress will lastjust a few hours, but stress can be ongoing and can lead to more than just stress. Although stress can play a major role in anxiety, it is not the same as anxiety. Stress is usually caused by something external, such as a deadline, test, or competition. Stress normally passes after the triggering event has ended. Anxiety is caused by something internal, such as imagining a terrible outcome or worrying that something will go wrong that will devastate you. Anxiety often does not go away even after the triggering event is over, and it can become long-term (chronic) worry. It is important to understand the differences between stress and anxiety and to manage your stress effectively so that it does not lead gale anxious response. Talk with your health care provider or a counselor to learn more about reducing anxiety and stress.He or she may suggest tension reduction techniques, such as: Music therapy. This can include creating or listening to music that you enjoy and that inspires you. Mindfulness-based meditation. This involves being aware of your normal breaths while not trying to control your breathing. It can be done while sitting or walking. Centering prayer. This involves focusing on a word, phrase, or sacred image that means something toyou and brings you peace. Deep breathing. To do this, expand your stomach and inhale slowly through your nose. Hold your breath for 3 5 seconds. Then exhale slowly, letting your stomach muscles relax. Self-talk. This involves identifying thought patterns that lead to anxiety reactions and changing those patterns. Muscle relaxation. This involves tensing muscles and then relaxing them. Choose a tension reduction technique that suits your lifestyle and personality. These techniques take time and practice. Set aside 5 15 minutes a day to do them. Therapists can offer counseling and training in these techniques. The training to help with anxiety may be covered by some insurance plans. Other things you can do to manage stress and anxiety include: Keeping a stress/anxiety diary. This can help you learn what triggers your reaction and then learn ways to manage your response. Thinking about how you react to certain situations. You may not be able to control everything, but you can control your response. Making time for activities that help you relax and not feeling guilty about spending your time in this way. Visual imagery and yoga can help you stay calm and relax. Medicines Medicines can help ease symptoms. Medicines for anxiety include: Anti-anxiety drugs. Antidepressants. Medicines are often used as a primary treatment for anxiety disorder. Medicines will be prescribed by a health care provider. When used together, medicines, psychotherapy, and tension reduction techniques may be the most effective treatment. Relationships Relationships can play a big part in helping you recover. Try to spend more time connecting with trusted friends and family members. Consider going to couples counseling, taking family education classes, or going to family therapy. Therapy can help you and others better understand your condition. How to recognize changes in your anxiety Everyone responds differently to treatment for anxiety. Recovery from anxiety happens when symptomsdecrease and stop interfering with your daily activities at home or work. This may mean that you will start to: Have better concentration and focus. Worry will interfere less in your daily thinking. Sleep better. Be less irritable. Have more energy. Have improved memory. It is important to recognize when your condition is getting worse. Contact your health care provider if your symptoms interfere with home or work and you feel like your condition is not improving. Follow these instructions at home: Activity Exercise. Most adults should do the following: ?Exercise for at least 150 minutes each week. The exercise should increase your heart rate and makeyou sweat (moderate-intensity exercise). ?Strengthening exercises at least twice a week. Get the right amount and quality of sleep. Most adults need 7 9 hours of sleep each night. Lifestyle Eat a healthy diet that includes plenty of vegetables, fruits, whole grains, low-fat dairy products, and lean protein. Do not eat a lot of foods that are high in solid fats, added sugars, or salt. Make choices that simplify your life. Do not use any products that contain nicotine or tobacco, such as cigarettes, e- cigarettes, and chewing tobacco. If you need help quitting, ask your health care provider. Avoid caffeine, alcohol, and certain baqd-iug-ipvtcje cold medicines. These may make you feel worse. Ask your pharmacist which medicines to avoid. General instructions Take sags-shj-wafladt and prescription medicines only as told by your health care provider. Keep all follow-up visits as told by your health care provider. This is important. Where to find support You can get help and support from these sources: Self-help groups. Online and community organizations. A trusted spiritual leader. Couples counseling. Family education classes. Family therapy. Where to find more information You may find that joining a support group helps you deal with your anxiety. The following sources can help you locate counselors or support groups near you: Mental Health [place]: www.mentalhealthamerica.net Anxiety and Depression Association of [place] (ADAA): www.adaa.org National [employer] on Mental Illness (MARY): www.mary.org Contact a health care provider if you: Have a hard time staying focused or finishing daily tasks. Spend many hours a day feeling worried about everyday life. Become exhausted by worry. Start to have headaches, feel tense, or have nausea. Urinate more than normal. Have diarrhea. Get help right away if you have: A racing heart and shortness of breath. Thoughts of hurting yourself or others. If you ever feel like you may hurt yourself or others, or have thoughts about taking your own life,get help right away. You can go to your nearest emergency department or call: Your local emergency services (911 in the [place] A suicide crisis helpline, such as the National Suicide Prevention Lifeline at . Thisis open 24 hours a day. Summary Taking steps to learn and use tension reduction techniques can help calm you and help prevent triggering an anxiety reaction. When used together, medicines, psychotherapy, and tension reduction techniques may be the most effective treatment. Family, friends, and partners can play a big part in helping you recover from an anxiety disorder. This information is not intended to replace advice given to you by your health care provider. Make sure you discuss any questions you have with your health care provider. Document Released: 05/06/2017 Document Revised: 10/12/2019 Document Reviewed: 10/12/2019 Balance [employer] Patient Education 2019 [employer] Follow Up Care 02/15/2022 15:00:41 With:Tomas FARRELL Address: [address] [place] [address] Business (1) When:02/18/2022 15:37:53 [facility]09-23-2022 Evaluation + Plan noteExtracted from: Title:ED Note Author:Malick Ho PA-C te:02/15/22 Anxiety (F41.9: Anxiety diso rder, unspecified) Orders: diazepam, 10 mg = 2 tab(s), Tab, Oral, Once, Stop date 02/15/22 15:06:00 EDT, STAT, Start date 02/15/22 15:06:00 EDT, 02/15/22 15:06:00 EDT Future Appointments Appointment Date:03/04/2022 11:20:00 AM Scheduled Provider:Tomas FARRELL DO Location:[facility] Appointment Type: Open Future Scheduled Tests Laboratory* TIBC Calculated 08/06/21 * Sodium Level 12/20/21 * Basic Metabolic Panel 03/27/21 * Ferritin 08/06/21 * Folate Level 08/06/21 * Hemoglobin 12/20/21 * Iron Level 08/06/21 * Lipase Level 08/06/21 * Vitamin B12 Level 08/06/21 Radiology* XR Foot 3+ Views Right 07/25/21 [facility]09-21-2022 Hospital Discharge instructions Patient Education 02/13/2022 12:34:18 Vomiting, Adult Vomiting, Adult Vomiting occurs when stomach contents are thrown up and out of the mouth. Many people notice nauseabefore vomiting. Vomiting can make you feel weak and cause you to become dehydrated. Dehydration can make you feel tired and thirsty, cause you to have a dry mouth, and decrease how often you urinate. Older adults and people who have other diseases or a weak body defense system (immune system) are at higher risk for dehydration. It is important to treat vomiting as told by your health care provider. Follow these instructions at home: Eating and drinking Follow these recommendations as told by your health care provider: Take an oral rehydration solution (ORS). This is a drink that is sold at pharmacies and retail stores. Eat bland, aywi-uq-uzvirl foods in small amounts as you are able. These foods include bananas, applesauce, rice, lean meats, toast, and crackers. Drink clear fluids slowly and in small amounts as you are able. Clear fluids include water, ice chips, low-calorie sports drinks, and fruit juice that has water added (diluted fruit juice). Avoid drinking fluids that contain a lot of sugar or caffeine, such as energy drinks, sports drinks, and soda. Avoid alcohol. Avoid spicy or fatty foods. General instructions Wash your hands often using soap and water. If soap and water are not available, use hand manager of internal audit. Make sure that everyone in your household washes their hands frequently. Take bfdd-ayi-pilxxwj and prescription medicines only as told by your health care provider. Rest at home while you recover. Watch your condition for any changes. Keep all follow-up visits as told by your health care provider. This is important. Contact a health care provider if: Your vomiting gets worse. You have new symptoms. You have a fever. You cannot drink fluids without vomiting. You feel light-headed or dizzy. You have a headache. You have muscle cramps. You have a rash. You have pain while urinating. Get help right away if: You have pain in your chest, neck, arm, or jaw. You feel extremely weak or you faint. You have persistent vomiting. You have vomit that is bright red or looks like black coffee grounds. You have stools that are bloody or black, or stools that look like tar. You have a severe headache, a stiff neck, or both. You have severe pain, cramping, or bloating in your abdomen. You have trouble breathing or you are breathing very quickly. Your heart is beating very quickly. Your skin feels cold and clammy. You feel confused. You have signs of dehydration, such as: ?Dark urine, very little urine, or no urine. ?Cracked lips. ?Dry mouth. ?Sunken eyes. ?Sleepiness. ?Weakness. These symptoms may represent a serious problem that is an emergency. Do not wait to see if the symptoms will go away. Get medical help right away. Call your local emergency services (911 in the [place] Do not drive yourself to the hospital. Summary Vomiting occurs when stomach contents are thrown up and out of the mouth. Vomiting can cause you tobecome dehydrated. Older adults and people who have other diseases or a weak immune system are at higher risk for dehydration. It is important to treat vomiting as told by your health care provider. Follow your health care provider's instructions about eating and drinking. Wash your hands often using soap and water. If soap and water are not available, use hand manager of internal audit. Make sure that everyone in your household washes their hands frequently. Watch your condition for any changes and for signs of dehydration. Keep all follow-up visits as told by your health care provider. This is important. This information is not intended to replace advice given to you by your health care provider. Make sure you discuss any questions you have with your health care provider. Document Released: 06/07/2016 Document Revised: 10/29/2019 Document Reviewed: 10/20/2018 Balance [employer] Patient Education 2020 [employer]. 02/13/2022 12:34:18 Dysuria Dysuria Dysuria is pain or discomfort while urinating. The pain or discomfort may be felt in the part of your body that drains urine from the bladder (urethra) or in the surrounding tissue of the genitals. The pain may also be felt in the groin area, lower abdomen, or lower back. You may have to urinate frequently or have the sudden feeling that you have to urinate (urgency). Dysuria can affect both men and women, but it is more common in women. Dysuria can be caused by many different things, including: Urinary tract infection. Kidney stones or bladder stones. Certain sexually transmitted infections (STIs), such as chlamydia. Dehydration. Inflammation of the tissues of the vagina. Use of certain medicines. Use of certain soaps or scented products that cause irritation. Follow these instructions at home: General instructions Watch your condition for any changes. Urinate often. Avoid holding urine for long periods of time. After a bowel movement or urination, women should cleanse from front to back, using each tissue only once. Urinate after sexual intercourse. Keep all follow-up visits as told by your health care provider. This is important. If you had any tests done to find the cause of dysuria, it is up to you to get your test results. Ask your health care provider, or the department that is doing the test, when your results will be ready. Eating and drinking Drink enough fluid to keep your urine pale yellow. Avoid caffeine, tea, and alcohol. They can irritate the bladder and make dysuria worse. In men, alcohol may irritate the prostate. Medicines Take hgcq-nto-xdwptyv and prescription medicines only as told by your health care provider. If you were prescribed an antibiotic medicine, take it as told by your health care provider. Do notstop taking the antibiotic even if you start to feel better. Contact a health care provider if: You have a fever. You develop pain in your back or sides. You have nausea or vomiting. You have blood in your urine. You are not urinating as often as you usually do. Get help right away if: Your pain is severe and not relieved with medicines. You cannot eat or drink without vomiting. You are confused. You have a rapid heartbeat while at rest. You have shaking or chills. You feel extremely weak. Summary Dysuria is pain or discomfort while urinating. Many different conditions can lead to dysuria. If you have dysuria, you may have to urinate frequently or have the sudden feeling that you have tourinate (urgency). Watch your condition for any changes. Keep all follow-up visits as told by your health care provider. Make sure that you urinate often and drink enough fluid to keep your urine pale yellow. This information is not intended to replace advice given to you by your health care provider. Make sure you discuss any questions you have with your health care provider. Document Released: 02/07/2005 Document Revised: 04/24/2018 Document Reviewed: 02/26/2018 Balance [employer] Patient Education 2020 [employer]. Follow Up Care 02/13/2022 11:41:36 With:Tomas FARRELL Address: [address] [place] [phone]- Business (1) When:02/16/2022 12:33:36 Comments:Call the office of your primary care doctor to arrange for follow-up within the above-stated timeframe. Follow-up with your primary care doctor about this ED visit. You should review your labs, imaging, and diagnoses from this ED visit with your primary care physician. If you were prescribed medications you should discuss possible side-effects and drug interactions with your pharmacist. Call 911 or go to the nearest Emergency Department if you develop any new or worsening symptoms.Seek immediate medical attention if you develop:worsening abdominal pain, new or worsening nausea, new or worsening vomiting, new or worsening diarrhea, chest pain, shortness of breath, pain with urination, problems urinating, fever, chills, weakness, or any new or worsening symptoms. [facility]09-21-2022 Evaluation + Plan noteExtracted from: Title:ED Note Author:Johny Willson DO Date: Dysuria (R30.0: Dysuria) Orders: ondansetron, 4 mg = 1 tab(s), Tab-Dis, Oral, Once, Stop date 02/13/22 11:46:00 EDT, STAT, Start date 02/13/22 11:46:00 EDT, 02/13/22 11:46:00 EDT phenazopyridine, 200 mg = 1 tab(s), Oral, TID, X 3 day(s), # 9 tab(s), Refills(s) 0, Pharmacy: [facility]/pharmacy #[id number], 154.9, cm, 02/13/22 11:50:00 EDT, Height/Length Dosing, 57.6, kg, 02/13/22 11:50:00 EDT, Weight Dosing UA With Cult Reflex Future Appointments Appointment Date:02/14/2022 02:40:00 PM Scheduled Provider:Tomas FARRELL DO Location:[facility] Appointment Type: Open Future Scheduled Tests Laboratory* TIBC Calculated 08/06/21 * Sodium Level 12/20/21 * Basic Metabolic Panel 03/27/21 * Ferritin 08/06/21 * Folate Level 08/06/21 * Hemoglobin 12/20/21 * Iron Level 08/06/21 * Lipase Level 08/06/21 * Vitamin B12 Level 08/06/21 Radiology* XR Foot 3+ Views Right 07/25/21 [facility]09-20-2022 Miscellaneous Notes* Telephone Encounter - Adriane Fishcer LPN - 02/12/2022 11:40 AM EDT Rep from [address] [place] [address] stated that she will reach out to the patient and get her sent catheters at this time. No further action is required at this time. * Telephone Encounter - Anabelle Vasquez RN - 02/11/2022 4:53 PM EDT Spoke to patient. She will contact [facility] [employer], has bright green flyer with the number on it to call if she hasn't been contacted. We reached out to rep from [facility]. Told patient she can come into office for more catheters. Her son is not able to come in for her toget them. Will touch base with patient tomorrow. Anabelle Vasquez R.N. * Telephone Encounter - Sergio Guevara RN - 02/11/2022 4:28 PM EDT Patient calling States she needs more Self Catheters Gets them from [id number] (?) States she used all of the Self Cath Catheters that she received from nurse office training Not sure how to get more Self Catheters, etc? Requesting call back maral please Call patient CELL [phone] Leave Detailed messages [facility] NoteHNO ID: [id number] Author: Viridiana León Service: ? Author Type: ? Type: Procedures Filed: 02/07/2022 2:11 PM Note Text: CYSTOSCOPY Indications: Seen by Frantz Urinary Retention/incomplete bladder have been followed by Dr. Mancera in past last seen 5-- urinary retention Mcdonough catheters, placed in the ED and removed by PCP. Recurrent UTI 2-3/yr Pelvic floor dysfunction ,cant do any ISC Chronic pain on Morphine pump Bipolar disorder, PTSD ,Chronic Constipation take miralax hyponatruria is taking NA pills ,CKD state 3,On Eliquis UDS = ANESTHESIA: 2% LOCAL XYLOCAIN JELLY. PATIENT WAS PLACED IN: Lithotomy GENETALIA PREPED WITH BETADINE AND DRAPED IN STERILE MANNER. CYSTOSCOPY WAS PERFORMED WITH: Rigid FIBEROPTIC CYSTOSCOPE 30 AND 70 DEGREE LENSES FINDINGS: COTTON SWAB TEST: NOT APPLICABLE URETHAL MEATUS: NORMAL BLADDER NECK: CLOSED URETHAL DILIATION: No PVRV: SMALL STRESS TEST: NOT APPLICABLE CYSTOCELE: NO RECTOCELE: no PV EXAM: DEFERRED BLADDER: INFLAMMED: Fascia cystitis with debris TRABECULATIONS: No DIVERTICULAE: No STONES: No NORMAL URETERIC ORFICES: Yes NORMAL TRIGONE: Yes TUMOR: no UROFLOWMETRY Voided vol: 154 ml. Q max: 16.9 ml/sec. Q av.7 ml/sec. PVR: 278 ml. COMPLICATIONS: No DIAGNOSIS: Fascia cystitis with debris PLAN: DISCUSSED FINDINGS WITH PATIENT ISC 3 times/day F/u with JONAH Galeano in 3 months with PVR check By signing my name below, IViridiana, attest that this documentation has been prepared under the direction and in the presence of Dr. Hernandez. Viridiana León, Scribe Provider Attestation: Quynh Sumner M.D., personally performed the services described in this documentation. All medical record entries made by the scribe were at my direction and in my presence. I have reviewed the chart and discharge instructions (if applicable) and agree that the record reflects my personal performance and is accurate and complete. Quynh Hernandez M.D.[facility]09-15-2022 Procedure note* Viridiana León - 02/07/2022 1:00 PM EDTProcedure(s): CYSTOSCOPY Pre-Procedure Diagnose(s): Feeling of incomplete bladder emptying; Recurrent UTI Post-Procedure Diagnose(s): Feeling of incomplete bladder emptying; Recurrent UTI CYSTOSCOPY Indications: Seen by Frantz Urinary Retention/incomplete bladder have been followed by Dr. Mancera in past last seen 10-02-21 urinary retention Mcdonough catheters, placed in the ED and removed by PCP. Recurrent UTI 2-3/yr Pelvic floor dysfunction ,cant do any ISC Chronic pain on Morphine pump Bipolar disorder, PTSD ,Chronic Constipation take miralax hyponatruria is taking NA pills ,CKD state 3,On Eliquis UDS = ANESTHESIA: 2% LOCAL XYLOCAIN JELLY. PATIENT WAS PLACED IN: Lithotomy GENETALIA PREPED WITH BETADINE AND DRAPED IN STERILE MANNER. CYSTOSCOPY WAS PERFORMED WITH: Rigid FIBEROPTIC CYSTOSCOPE 30 AND 70 DEGREE LENSES FINDINGS: COTTON SWAB TEST: NOT APPLICABLE URETHAL MEATUS: NORMAL BLADDER NECK: CLOSED URETHAL DILIATION: No PVRV: SMALL STRESS TEST: NOT APPLICABLE CYSTOCELE: NO RECTOCELE: no PV EXAM: DEFERRED BLADDER: INFLAMMED: Fascia cystitis with debris TRABECULATIONS: No DIVERTICULAE: No STONES: No NORMAL URETERIC ORFICES: Yes NORMAL TRIGONE: Yes TUMOR: no UROFLOWMETRY Voided vol: 154 ml. Q max: 16.9 ml/sec. Q av.7 ml/sec. PVR: 278 ml. COMPLICATIONS: No DIAGNOSIS: Fascia cystitis with debris PLAN: DISCUSSED FINDINGS WITH PATIENT ISC 3 times/day F/u with [facility] Frantz in 3 months with PVR check By signing my name below, I, Viridiana León, attest that this documentation has been prepared under the direction and in the presence of Dr. Hernandez. Kristi Carlsonibsarahi Provider Attestation: IQuynh M.D., personally performed the services described in this documentation. All medicalrecord entries made by the scribe were at my direction and in my presence. I have reviewed the chart and discharge instructions (if applicable) and agree that the record reflects my personal performance and is accurate and complete. Quynh Hernandez M.D. documented in this encounterMer[facility] Nurse Note* Adriane Fischer LPN - 02/07/2022 12:57 PM EDT PRE PROCEDURE NURSE ASSESSMENT Patient ID with two(2)identifiers verified by: Adriane Fischer LPN Procedure Indication: Cystoscopy February 07, 2022, Time In: 1258 Latex Allergy: No Allergies reviewed and updated. Yes Pre-Procedure Vital Signs: BP 117/53 Pulse 74 Wt 51.7 kg (114 lb) BMI 21.90 kg/m Heart valve replacement: No Joint replacement: Yes Back Office UA otained: not applicable Pre-Procedure Antibiotics: Gentamicin 80 mg IM, given during visit @ 1305 , by Adriane Fischer LPN Current pain intensity is 0 on a 0-10 pain scale. Patient Prep: Betadine Scrub to perineum and placement of Sterile Drape. COMPLETED Anesthetic Given:6 cc 2% Lidocaine Jelly Adriane Fischer LPN UNIVERSAL PROTOCOL / SAFETY CHECKLIST Procedure to be performed: Cystoscopy Sign in Communication: Completed Time Out: Team Confirms the Correct Patient, Correct Procedure, Correct Site and Site Marking, Correct Position (if applicable) Sign Out Discussion: Completed Adriane Fischer LPN POST PROCEDURE NURSE ASSESSMENT Procedure/Indication: Cystoscopy Instruction sheet given and reviewed and patient verbalizes understanding: yes Post-Procedure Vital Signs: BP 118/75 Pulse 76 Wt 51.7 kg (114 lb) BMI 21.90 kg/m Post Procedure Antibiotic: n/a Current pain intensity is 0 on a 0-10 pain scale. Adriane Fischer LPN AMBULATORY PATIENT EDUCATION THE FOLLOWING WAS EVALUATED Motivation To Learn: Interested Family/Significant Other Support: High - Very involved in pt care Cognitive Ability: Alert/Oriented Method of Instruction: Verbal instruction The Following Influencing Factors Were Barriers To This Education Session: None The Following Physical Limitations Were Barriers To This Education Session: None Instruction Provided To: Patient Grain Sampler Present: not applicable Discipline: Nursing Learning Topic: SURVIVAL SKILLS: Blood Pressure Monitoring Disease Education Fatigue Management Self- Cath Patient Evaluation: Verbalizes understanding: Yes Supplemental Material Given: None Assisted patient to the bathroom after the procedure was completed. PVR via scanner: 278ml Double void, with PVR of 250ml Patient taught how to do ISC successfully. Order placed through [facility]. Orders to ISC after voiding three times daily and to follow up with [facility] in 3 months. Carried out orders of Dr. Hernandez, under his supervision. Instructed By Adriane Fsicher LPN In Department Urology . UNIVERSAL PROTOCOL / SAFETY CHECKLIST Procedure to be Performed: Cystoscopy Sign In: A Moment of CARE was completed. Personnel directly involved with the procedure wore the appropriate PPE (Personal Protective Equipment). Patient/Surrogate Stated/Verified: PATIENT VERIFIED(optional for EMERGENT procedures): Patient name, Date of , Relevant allergies, and The intended procedure Time Out Communication: Intended patient and procedure match the source documents. Consent documented and matches the intended procedure. Relevant labs, photos, and/or imaging studies have been reviewed. Correct side/site marked and visible. Medications required for procedure verified. Fire risk assessed and interventions discussed. No implant(s) inserted. Sign Out: SIGN OUT (optional for EMERGENT procedures): No specimen collected. All instruments, equipment, possible retained foreign bodies accounted for. Post-procedure follow-up management communicated and Plan of Care Visit completed when applicable. Adriane Fischer LPN [facility] NoteHNO ID: [id number] Author: Quynh Hernandez MD Service: ? Author Type: Physician Type: Progress Notes Filed: 02/06/2022 10:32 PM Note Text: cysto w PVR 02-07-22 seen by Frantz Urinary Retention/incomplete bladder have been followed by Dr. Mancera in past last seen 10-02-21 urinary retention Mcdonough catheters, placed in the ED and removed by PCP. Recurrent UTI 2-3/yr Pelvic floor dysfunction ,cant do any ISC Chronic pain on Morphine pump Bipolar disorder, PTSD ,Chronic Constipation take miralax hyponatruria is taking NA pills ,CKD state 3,On Eliquis UDS =[facility]09-14-2022 History of Present illness Narrative* Quynh Hernandez MD - 02/06/2022 10:19 PM EDT cysto w PVR 02-07-22 seen by Frantz Urinary Retention/incomplete bladder have been followed by Dr. Mancera in past last seen 10-02-21 urinary retention Mcdonough catheters, placed in the ED and removed by PCP. Recurrent UTI 2-3/yr Pelvic floor dysfunction ,cant do any ISC Chronic pain on Morphine pump Bipolar disorder, PTSD ,Chronic Constipation take miralax hyponatruria is taking NA pills ,CKD state 3,On Eliquis UDS = [facility] Evaluation + Plan note Extracted from: Title:Discharge Note Author:DREW CRUZP-BCMalorie nee Date:02/05/22 Hemodynamically stable condi tion Transported by, Anticipated - Family Discharge Status: Improved Discharge Instructions Given: To patient Discharge disposition: Home Prescriptions reviewed with Patient 48 minutes spent in discharge time with patient, collaborating MD, nursing staff, CRM, Discharge Diet(s): Regular, Fat Modified- Low cholesterol, Other: Free water restriction of 1.5 liters every 24 hours (02/05/22 09:55:00) Prescriptions Bentyl 10 mg Cap, 10 mg= 1 cap(s), Oral, QID Colace 100 mg Cap, 100 mg= 1 cap(s), Oral, BID cyanocobalamin 1000 mcg/mL Inj, 1000 mcg= 1 mL, IntraMuscular, qMonth, 1 refills famotidine 20 mg Tab, 20 mg= 1 tab(s), Oral, Daily ferrous sulfate 325 mg Tab, 325 mg= 1 tab(s), Oral, TID fluticasone 0.05 mg/inh Nasal Britt, 2 spray(s), Nasal, Daily, 5 refills potassium chloride 10 mEq Cap-ER, 10 mEq= 1 cap(s), Oral, Every other day, 2 refills Senokot 8.6 mg Tab, 17.2 mg= 2 tab(s), Oral, Once a day (at bedtime), PRN, 1 refills Sodium Chloride 1 g oral tablet, 1 tab, Oral, TID, 5 refills traZODONE 150 mg Tab, 150 mg= 1 tab(s), Oral, Once a day (at bedtime), 3 refills walking boot, See Instructions Zofran ODT 4 mg Tab-Dis, 4 mg= 1 tab(s), Oral, TID, PRN, 1 refills Home acetaminophen 325 mg Tab, 650 mg= 2 tab(s), Oral, q4hr, PRN cimetidine 300 mg oral tablet, 600 mg= 2 tab(s), Oral, TID clonazepam 1 mg Tab, 1 mg= 1 tab(s), Oral, TID, PRN Miralax 17 gram packet, 17 gm, Oral, Daily Therapeutic Multiple Vitamins with Minerals Tab, Oral, Daily zolpidem 5 mg Tab, 5 mg= 1 tab(s), Oral, Once a day (at bedtime), PRN, Self Directed With When Contact Information Tomas FARRELL Within 2 to 4 days [address] [place] [address]- Business (1) Additional Instructions: Please contact office for follow-up appointment. Jacqueline Puri Within 3 to 5 days [address] [address], [address] [place] [address]- Business (1) Additional Instructions: Call for followup appointment thyroid nodule Taj Orozco Within 1 to 2 weeks [facility] [address] [place] [address]- Business (1) Additional Instructions: Please keep your follow-up appointment with urology as previously scheduled Additional Instructions: Hyponatremia, Mjnw-ri-Cznh Addendum by Adela MONZON on February 05, 2022 10:26:40 EDT Patient had a quicker than anticipated recovery time Extracted from: Title:HypoNa Author:Ernesto RAMOS, Taj Date:01/24 07/17 Impression and Plan 1. Acute euvolemic hyponatremia: Likely from indiscriminate free water intake. Stop PPI. Stop IVF. Resume salt tabs 1 tab tid tomorrow. Will give 1 dose of tolvaptan 15mg *1. Maintain mcdonough catheter. Please reinforce free water restriction 1.5L/day. She has hypotonic hypoNa with no ADH stimulus. She is peeing very dilute urine. Expect Na to improve with free water restriction. 2. Chronic hyponatremia with baseline Na 130 3. Hypertension: Blood pressure is at goal. On amlodipine 5 mg a day. Extracted from: Title:Admission H & P Author:Amanda RAMOS, [facility] Date:02/03/22 Hyponatremia -Chronic, Acute worsening, likely hypovolemic hyponatremia + not taking home meds -Fluids decrease to 75ml/hr -Check Na q4h: Goal correction 128 not more -STOP SSRI if she's on it -Fluid restrict -NPO -Check osmoles: urine and blood, check urine Na and K (antidiruetic or aquaretic phase) -Consult nephrology: we wont have coverage until 02/04/22 CKD Stage 3 -Chronic, appears at baseline Cr 1.1 -No evidence of DICKSON -Avoid nephrotoxic drugs, NSAIDs etc COPD -Chronic, no s/s of infection -Duo nebs PRN -Out pt f/u w/pulm HTN -Chronic, no cp, telemetry -Continue w/home medications DORA -Chronic, not compliant w/CPAP -Monitor Bipolar disorder PTSD -Chronic, denies suicidal ideation, homicidal ideation, suicidal plan or homicidal plan -Review meds and resume as appropriate Chronic GERD -No s/s of GI bleed -Not anemic -Switch to H2 alberto in the setting of DICKSON Chronic Medical Conditions Neurogenic bladder: Chronic, UA not overtly concerning for infection Insomnia: Chronic, med rec, resume appropriate medications Physical deconditioning: Likely multifactorial above and below, PT/OT, likely placement Thyroid nodule: Noted on CT scan on admission, check TSH w/reflex, out patient f/u w/ENT Chronic pain: Home meds and out pt f/u w/pain management Code: Full IVF: 55 ml/hr Diet: NPO DVT prophylaxis: Heparin BID Admit: InPatient, likely >2 midnight stay Pt hyponatremia 122 Plan: Plan was discussed with patient and family (if applicable) at bedside Orders: albuterol-ipratropium, 3 mL, Soln-Inh, Inhalation, QID PRN Shortness of breath or wheezing, STAT, Start date 02/03/22 12:29:00 EDT heparin, 5,000 unit(s) = 1 mL, Injection, SubCutaneous, BID for 30 day(s), Stop date 03/05/22 20:59:00 EDT, Routine, Start date 02/03/22 21:00:00 EDT, 02/03/22 11:50:00 EDT Sodium Chloride 0.9% intravenous solution 1,000 mL, 1,000 mL, IV, 55 mL/hr, Routine, Start date 02/03/22 12:30:00 EDT, 18.2 hour(s), Total volume (mL): 1,000, 52 kg, 1.5, m2 Ambulate with Assistance Basic Metabolic Panel Cardiac Monitoring Communication Order Physician to Nursing eGFR Elevate Head of Bed Incentive Spirometry Magnesium Level NPO Diet Occupational Therapy Evaluate Patient, Develop a Plan of Care and Implement Plan Osmolality Osmolality Urine Physical Therapy Evaluate Patient, Develop a Plan of Care and Implement Plan Place in Status Potassium Level Urine Resuscitation Status - Full Sodium Level Sodium Level Urine TSH With T4fr Reflex Vital Signs Weight Future Scheduled Tests Laboratory* TIBC Calculated 08/06/21 * Sodium Level 12/20/21 * Basic Metabolic Panel 03/27/21 * Ferritin 08/06/21 * Folate Level 08/06/21 * Hemoglobin 12/20/21 * Iron Level 08/06/21 * Lipase Level 08/06/21 * Vitamin B12 Level 08/06/21 Radiology* XR Foot 3+ Views Right 07/25/21 [facility]09-13-2022 Hospital Discharge instructions Patient Education 02/05/2022 09:58:13 Hyponatremia, Qzln-fa-Obig Hyponatremia Hyponatremia is when the amount of salt (sodium) in your blood is too low. When salt levels are low, your body may take in extra water. This can cause swelling throughout the body. The swelling oftenaffects the brain. What are the causes? This condition may be caused by: Certain medical problems or conditions. Vomiting a lot. Having watery poop (diarrhea) often. Certain medicines or illegal drugs. Not having enough water in the body (dehydration). Drinking too much water. Eating a diet that is low in salt. Large muñoz on your body. Too much sweating. What increases the risk? You are more likely to get this condition if you: Have long-term (chronic) kidney disease. Have heart failure. Have a medical condition that causes you to have watery poop often. Do very hard exercises. Take medicines that affect the amount of salt is in your blood. What are the signs or symptoms? Symptoms of this condition include: Headache. Feeling like you may vomit (nausea). Vomiting. Being very tired (lethargic). Muscle weakness and cramps. Not wanting to eat as much as normal (loss of appetite). Feeling weak or light-headed. Severe symptoms of this condition include: Confusion. Feeling restless (agitation). Having a fast heart rate. Passing out (fainting). Seizures. Coma. How is this treated? Treatment for this condition depends on the cause. Treatment may include: Getting fluids through an IV tube that is put into one of your veins. Taking medicines to fix the salt levels in your blood. If medicines are causing the problem, your medicines will need to be changed. Limiting how much water or fluid you take in. Monitoring in the hospital to watch your symptoms. Follow these instructions at home: Take rvjw-vss-vtgoklr and prescription medicines only as told by your doctor. Many medicines can make this condition worse. Talk with your doctor about any medicines that you are taking. Eat and drink exactly as you are told by your doctor. ?Eat only the foods you are told to eat. ?Limit how much fluid you take. Do not drink alcohol. Keep all follow-up visits as told by your doctor. This is important. Contact a doctor if: You feel more like you may vomit. You feel more tired. Your headache gets worse. You feel more confused. You feel weaker. Your symptoms go away and then they come back. You have trouble following the diet instructions. Get help right away if: You have a seizure. You pass out. You keep having watery poop. You keep vomiting. Summary Hyponatremia is when the amount of salt in your blood is too low. When salt levels are low, you can have swelling throughout the body. The swelling mostly affects the brain. Treatment depends on the cause. Treatment may include getting IV fluids, medicines, or not drinkingas much fluid. This information is not intended to replace advice given to you by your health care provider. Make sure you discuss any questions you have with your health care provider. Document Released: 01/22/2012 Document Revised: 07/29/2019 Document Reviewed: 04/15/2019 [employer] Patient Education 2020 [employer]. Follow Up Care 02/03/2022 09:57:23 With:[facility] Address:Unknown When:02/07/2022 12:45:00 Comments:Urology appointment With:Tomas FARRELL Address: [address] [place] [address]- Business (1) When:2 to 4 days Comments:Please contact office for follow-up appointment. With:Jacqueline Puri Address: [address] [place] [address], [address] [place] [address]- Business (1) When:3 to 5 days Comments:Call for followup appointment thyroid nodule With:Taj Orozco Address: [address] [address]- Business (1) When:1 to 2 weeks [facility]09-09-2022 Evaluation + Plan noteExtracted from: Title:ED Note Author:Mati Taylor DO Date :02/01/22 Accidental fall (W19.XXXA: U nspecified fall, initial encounter) Facial bruising (S00.83XA: Contusion of other part of head, initial encounter) Orders: CT Head or Brain w/o Contrast CT Maxillofacial w/o Contrast CT Spine Cervical w/o Contrast XR Abdomen 1 View Addendum by Chandan Adhikari DO on February 01, 2022 07:47:28 EDT Patient was signed out to me by the prior physician. CT of the head read by the telemetry radiologist as soft tissue swelling no evidence of acute intracranial hemorrhage. CT of the cervical spine and maxillofacial bones is not yet available. We did do a bladder scan which was benign. Patient does not wish to stay for any additional evaluation she would like to leave AGAINST MEDICAL ADVICE. She is to follow-up in the outpatient setting return to ER symptoms change or worsen. The patient wishes to sign out AGAINST MEDICAL ADVICE. The nursing staff and physicians begged and pleaded with the patient to stay for further investigations and evaluation. The patient understands and appreciates the admission diagnosis and its prognosis and the likelihood of risks and benefits of leaving the hospital. The patient signed documentation that they would like to leave at their own insistence and against the advice of the physicians. The patient was advised of the possible dangers to their life and health from this departure, and the patient assumes the risks and consequences involved and releases the staff and the Medical Center from any liability in connection with leaving AGAINST MEDICAL ADVICE. The patient understands that we cannot fully assess the patient for the current complaint at this time because they do not want us to perform our investigations. The patient understands and the possibilities of and disability and consequences of leaving AGAINST MEDICAL ADVICE. The patient has been informed of the dangers of leaving AGAINST MEDICAL ADVICE and still is insistent upon signing out. The patient has arrived at this decision without being subjected to coercion and with a full understanding in appreciation of the risks, benefits, and alternatives of the decision. The patient is not intoxicated. Future Scheduled Tests Laboratory* TIBC Calculated 08/06/21 * Sodium Level 12/20/21 * Basic Metabolic Panel 03/27/21 * Ferritin 08/06/21 * Folate Level 08/06/21 * Hemoglobin 12/20/21 * Iron Level 08/06/21 * Lipase Level 08/06/21 * Vitamin B12 Level 08/06/21 Radiology* XR Foot 3+ Views Right 07/25/21 [facility]09-09-2022 Hospital Discharge instructions Patient Education 02/01/2022 08:19:38 Head Injury, Adult Head Injury, Adult There are many types of head injuries. Head injuries can be as minor as a bump, or they can be a serious medical issue. More severe head injuries include: A jarring injury to the brain (concussion). A bruise (contusion) of the brain. This means there is bleeding in the brain that can cause swelling. A cracked skull (skull fracture). Bleeding in the brain that collects, clots, and forms a bump (hematoma). After a head injury, most problems occur within the first 24 hours, but side effects may occur up to 7 10 days after the injury. It is important to watch your condition for any changes. You may need to be observed in the emergency department or urgent care, or you may be admitted to the hospital. What are the causes? There are many possible causes of a head injury. A serious head injury may be caused by a car accident, bicycle or motorcycle accidents, sports injuries, and falls. What are the symptoms? Symptoms of a head injury include a contusion, bump, or bleeding at the site of the injury. Other physical symptoms may include: Headache. Nausea or vomiting. Dizziness. Feeling tired. Being uncomfortable around bright lights or loud noises. Seizures. Trouble being awakened. Fainting. Mental or emotional symptoms may include: Irritability. Confusion and memory problems. Poor attention and concentration. Changes in eating or sleeping habits. Anxiety or depression. How is this diagnosed? This condition can usually be diagnosed based on your symptoms, a description of the injury, and a physical exam. You may also have imaging tests done, such as a CT scan or MRI. How is this treated? Treatment for this condition depends on the severity and type of injury you have. The main goal of treatment is to prevent complications and to allow the brain time to heal. Mild head injury If you have a mild head injury, you may be sent home and treatment may include: Observation. A responsible adult should stay with you for 24 hours after your injury and check on you often. Physical rest. Brain rest. Pain medicines. Severe head injury If you have a severe head injury, treatment may include: Close observation. This includes hospitalization with frequent physical exams. Medicines to relieve pain, prevent seizures, and decrease brain swelling. Breathing support. This may include using a ventilator. Treatments to manage the swelling inside the brain. Brain surgery. This may be needed to: ?Remove a blood clot. ?Stop the bleeding. ?Remove a part of the skull to allow room for the brain to swell. Follow these instructions at home: Activity Rest and avoid activities that are physically hard or tiring. Make sure you get enough sleep. Limit activities that require a lot of thought or attention, such as: ?Watching TV. ?Playing memory games and puzzles. ?Job-related work or homework. ?Working on the computer, using social media, and texting. Avoid activities that could cause another head injury, such as playing sports, until your health care provider approves. Having another head injury, especially before the first one has healed, can bedangerous. Ask your health care provider when it is safe for you to return to your regular activities, including work or school. Ask your health care provider for a bcib-dx-erby plan for gradually returning to activities. Ask your health care provider when you can drive, ride a bicycle, or use heavy machinery. Your ability to react may be slower after a brain injury. Do not do these activities if you are dizzy. Lifestyle Do not drink alcohol until your health care provider approves. Do not use drugs. Alcohol and certain drugs may slow your recovery and can put you at risk of further injury. If it is harder than usual to remember things, write them down. If you are easily distracted, try to do one thing at a time. Talk with family members or close friends when making important decisions. Tell your friends, family, a trusted colleague, and equipment worker about your injury, symptoms, and restrictions. Have them watch for any new or worsening problems. General instructions Take pybv-elu-wpkhadx and prescription medicines only as told by your health care provider. Have someone stay with you for 24 hours after your head injury. This person should watch you for any changes in your symptoms and be ready to seek medical help. Keep all follow-up visits as told by your health care provider. This is important. How is this prevented? Work on improving your balance and strength to avoid falls. Wear a seatbelt when you are in a moving vehicle. Wear a helmet when riding a bicycle, skiing, or doing any other sport or activity that has a risk of injury. If you drink alcohol: ?Limit how much you use to: ?0 1 drink a day for women. ?0 2 drinks a day for men. ?Be aware of how much alcohol is in your drink. In the [place] one drink equals one 12 oz bottle of beer (355 mL), one 5 oz glass of wine (148 mL), or one 1 oz glass of hard liquor (44 mL). Take safety measures in your home, such as: ?Removing clutter and tripping hazards from floors and stairways. ?Using grab bars in bathrooms and handrails by stairs. ?Placing non-slip mats on floors and in bathtubs. ?Improving lighting in dim areas. Get help right away if: You have: ?A severe headache that is not helped by medicine. ?Trouble walking or weakness in your arms and legs. ?Clear or bloody fluid coming from your nose or ears. ?Changes in your vision. ?A seizure. You lose your balance. You vomit. Your pupils change size. Your speech is slurred. Your dizziness gets worse. You faint. You are sleepier than normal and have trouble staying awake. Your symptoms get worse. These symptoms may represent a serious problem that is an emergency. Do not wait to see if the symptoms will go away. Get medical help right away. Call your local emergency services (911 in the [place] Do not drive yourself to the hospital. Summary Head injuries can be minor or they can be a serious medical issue requiring immediate attention. Treatment for this condition depends on the severity and type of injury you have. Ask your health care provider when it is safe for you to return to your regular activities, including work or school. Head injury prevention includes wearing a seat belt in a motor vehicle, using a helmet on a bicycle, limiting alcohol use, and taking safety measures in your home. This information is not intended to replace advice given to you by your health care provider. Make sure you discuss any questions you have with your health care provider. Document Released: 05/12/2006 Document Revised: 06/09/2019 Document Reviewed: 06/04/2019 [employer] Patient Education 2020 [employer] 02/01/2022 08:19:38 Fall Prevention in the Home, Adult Fall Prevention in the Home, Adult Falls can cause injuries and can affect people from all age groups. There are many simple things that you can do to make your home safe and to help prevent falls. Ask for help when making these changes, if needed. What actions can I take to prevent falls? General instructions Use good lighting in all rooms. Replace any light bulbs that burn out. Turn on lights if it is dark. Use night-lights. Place frequently used items in figi-kk-pvmzx places. Lower the shelves around your home if necessary. Set up furniture so that there are clear paths around it. Avoid moving your furniture around. Remove throw rugs and other tripping hazards from the floor. Avoid walking on wet floors. Fix any uneven floor surfaces. Add color or contrast paint or tape to grab bars and handrails in your home. Place contrasting color strips on the first and last steps of stairways. When you use a stepladder, make sure that it is completely opened and that the sides are firmly locked. Have someone hold the ladder while you are using it. Do not climb a closed stepladder. Be aware of any and all pets. What can I do in the bathroom? Keep the floor dry. Immediately clean up any water that spills onto the floor. Remove soap buildup in the tub or shower on a regular basis. Use non-skid mats or decals on the floor of the tub or shower. Attach bath mats securely with double-sided, non-slip rug tape. If you need to sit down while you are in the shower, use a plastic, non-slip stool. Install grab bars by the toilet and in the tub and shower. Do not use towel bars as grab bars. What can I do in the bedroom? Make sure that a bedside light is easy to reach. Do not use oversized bedding that drapes onto the floor. Have a firm chair that has side arms to use for getting dressed. What can I do in the kitchen? Clean up any spills right away. If you need to reach for something above you, use a sturdy step stool that has a grab bar. Keep electrical cables out of the way. Do not use floor pashto or wax that makes floors slippery. If you must use wax, make sure that it is non-skid floor wax. What can I do in the stairways? Do not leave any items on the stairs. Make sure that you have a light switch at the top of the stairs and the bottom of the stairs. Have them installed if you do not have them. Make sure that there are handrails on both sides of the stairs. Fix handrails that are broken or loose. Make sure that handrails are as long as the stairways. Install non-slip stair treads on all stairs in your home. Avoid having throw rugs at the top or bottom of stairways, or secure the rugs with carpet tape to prevent them from moving. Choose a carpet design that does not hide the edge of steps on the stairway. Check any carpeting to make sure that it is firmly attached to the stairs. Fix any carpet that is loose or worn. What can I do on the outside of my home? Use bright outdoor lighting. Regularly repair the edges of walkways and driveways and fix any cracks. Remove high doorway thresholds. Trim any shrubbery on the main path into your home. Regularly check that handrails are securely fastened and in good repair. Both sides of any steps should have handrails. Install guardrails along the edges of any raised decks or porches. Clear walkways of debris and clutter, including tools and rocks. Have leaves, snow, and ice cleared regularly. Use sand or salt on walkways during winter months. In the garage, clean up any spills right away, including grease or oil spills. What other actions can I take? Wear closed-toe shoes that fit well and support your feet. Wear shoes that have rubber soles or lowheels. Use mobility aids as needed, such as canes, walkers, scooters, and crutches. Review your medicines with your health care provider. Some medicines can cause dizziness or changesin blood pressure, which increase your risk of falling. Talk with your health care provider about other ways that you can decrease your risk of falls. Thismay include working with a physical therapist or longwall machine operator helper to improve your strength, balance, and endurance. Where to find more information Centers for Disease Control and PreventionVIRI: https://www.cdc.gov National [place] on Aging: https://yq5lfuf.chely.nih.gov Contact a health care provider if: You are afraid of falling at home. You feel weak, drowsy, or dizzy at home. You fall at home. Summary There are many simple things that you can do to make your home safe and to help prevent falls. Ways to make your home safe include removing tripping hazards and installing grab bars in the bathroom. Ask for help when making these changes in your home. This information is not intended to replace advice given to you by your health care provider. Make sure you discuss any questions you have with your health care provider. Document Released: 05/02/2003 Document Revised: 04/24/2018 Document Reviewed: 12/25/2017 [employer] Patient Education 2020 [employer] Follow Up Care 02/01/2022 06:15:42 With:Toams FARRELL Address: [facility] [address] [place] [phone]- Business (1) When:Within 3 Day(s) [facility]09-08-2022 Evaluation + Plan noteExtracted from: Title:ED Note Author:Mati Taylor DO Date :01/31/22 Urinary retention (R33.9: Re tention of urine, unspecified) Orders: dicyclomine, 10 mg = 1 cap(s), Oral, QID, X 7 day(s), # 14 cap(s), Refills(s) 0 dicyclomine, 10 mg = 1 cap(s), Cap, Oral, Once, Stop date 01/30/22 20:06:00 EDT, STAT, Start date 01/30/22 20:06:00 EDT, 01/30/22 20:06:00 EDT magnesium citrate, 300 mL, Liquid, Oral, Once, Stop date 01/30/22 20:07:00 EDT, STAT, Start date 01/30/22 20:07:00 EDT polyethylene glycol 3350, 17 gram, Oral, Daily, 255 gram, Refill(s) 0, dissolve in water before taking UA With Cult Reflex Urinary Catheter Insertion XR Abdomen 1 View Future Scheduled Tests Laboratory* TIBC Calculated 08/06/21 * Sodium Level 12/20/21 * Basic Metabolic Panel 03/27/21 * Ferritin 08/06/21 * Folate Level 08/06/21 * Hemoglobin 12/20/21 * Iron Level 08/06/21 * Lipase Level 08/06/21 * Vitamin B12 Level 08/06/21 Radiology* XR Foot 3+ Views Right 07/25/21 [facility]09-08-2022 Hospital Discharge instructions Patient Education 01/31/2022 04:24:39 Indwelling Urinary Catheter Insertion, Care After Indwelling Urinary Catheter Insertion, Care After This sheet gives you information about how to care for yourself after your procedure. Your health care provider may also give you more specific instructions. If you have problems or questions, contact your health care provider. What can I expect after the procedure? After the procedure, it is common to have: Slight discomfort around your urethra where the catheter enters your body. Follow these instructions at home: Keep the drainage bag at or below the level of your bladder. Doing this ensures that urine can onlydrain out, not back into your body. Secure the catheter tubing and drainage bag to your leg or thigh to keep it from moving. Check the catheter tubing regularly to make sure there are no kinks or blockages. Take showers daily to keep the catheter clean. Do not take a bath. Do not pull on your catheter or try to remove it. Disconnect the tubing and drainage bag as little as possible. Empty the drainage bag every 2 4 hours, or more often if needed. Do not let the bag get completely full. Wash your hands with soap and water before and after touching the catheter, tubing, or drainage bag. Do not let the drainage bag or catheter tubing touch the floor. Drink enough fluids to keep your urine clear or pale yellow, or as told by your health care provider. Contact a health care provider if: Urine stops flowing into the drainage bag. You feel pain or pressure in the bladder area. You have back pain. Your catheter gets clogged. Your catheter starts to leak. Your urine looks cloudy. Your drainage bag or tubing looks dirty. You notice a bad smell when emptying your drainage bag. Get help right away if: You have a fever or chills. You have severe pain in your back or your lower abdomen. You have warmth, redness, swelling, or pain in the urethra area. You notice blood in your urine. Your catheter gets pulled out. Summary Do not pull on your catheter or try to remove it. Keep the drainage bag at or below the level of your bladder, but do not let the drainage bag or catheter tubing touch the floor. Wash your hands with soap and water before and after touching the catheter, tubing, or drainage bag. Contact your health care provider if you have a fever, chills, or any other signs of infection. This information is not intended to replace advice given to you by your health care provider. Make sure you discuss any questions you have with your health care provider. Document Released: 06/21/2017 Document Revised: 09/03/2019 Document Reviewed: 06/21/2017 [employer] Patient Education 2020 [employer]. 01/31/2022 04:24:39 Acute Urinary Retention, Female, Ttds-ya-Xhmj Acute Urinary Retention, Female Acute urinary retention means that you cannot pee (urinate) at all, or that you pee too little and your bladder is not emptied completely. If it is not treated, it can lead to kidney damage or other serious problems. Follow these instructions at home: Take ykwn-jub-lkovqyu and prescription medicines only as told by your doctor. Ask your doctor what medicines you should stay away from. Do not take any medicine unless your doctor says it is okay to do so. If you were sent home with a tube that drains pee from the bladder (catheter), take care of it as told by your doctor. Drink enough fluid to keep your pee clear or pale yellow. If you were given an antibiotic, take it as told by your doctor. Do not stop taking the antibiotic even if you start to feel better. Do not use any products that contain nicotine or tobacco, such as cigarettes and e-cigarettes. If you need help quitting, ask your doctor. Watch for changes in your symptoms. Tell your doctor about them. If told, keep track of any changes in your blood pressure at home. Tell your doctor about them. Keep all follow-up visits as told by your doctor. This is important. Contact a doctor if: You have spasms or you leak pee when you have spasms. Get help right away if: You have chills or a fever. You have blood in your pee. You have a tube that drains the bladder and: ?The tube stops draining pee. ?The tube falls out. Summary Acute urinary retention means that you cannot pee at all, or that you pee too little and your bladder is not emptied completely. If it is not treated, it can result in kidney damage or other serious problems. If you were sent home with a tube that drains pee from the bladder, take care of it as told by yourdoctor. Pay attention to any changes in your symptoms. Tell your doctor about them. This information is not intended to replace advice given to you by your health care provider. Make sure you discuss any questions you have with your health care provider. Document Released: 10/28/2008 Document Revised: 04/24/2018 Document Reviewed: 06/13/2017 [employer] Patient Education 2020 [employer] Follow Up Care 01/31/2022 03:36:37 With:Tomas FARRELL Address: [address] [place] [phone] Business (1) When:02/03/2022 Comments:Please follow-up with your primary care doctor in addition to your urologist for further evaluationand management. Keep the catheter in until you follow-up with your urologist. Please return the ED for any new or worsening symptoms. [facility]09-07-2022 Hospital Discharge instructions Patient Education 01/30/2022 20:32:06 Constipation, Adult, Jjwm-la-Tgxo Constipation, Adult Constipation is when a person: Poops (has a bowel movement) fewer times in a week than normal. Has a hard time pooping. Has poop that is dry, hard, or bigger than normal. Follow these instructions at home: Eating and drinking Eat foods that have a lot of fiber, such as: ?Fresh fruits and vegetables. ?Whole grains. ?Beans. Eat less of foods that are high in fat, low in fiber, or overly processed, such as: ?Yemeni fries. ?Hamburgers. ?Cookies. ?Candy. ?Soda. Drink enough fluid to keep your pee (urine) clear or pale yellow. General instructions Exercise regularly or as told by your doctor. Go to the restroom when you feel like you need to poop. Do not hold it in. Take coye-icd-kyqdxkk and prescription medicines only as told by your doctor. These include any fiber supplements. Do pelvic floor retraining exercises, such as: ?Doing deep breathing while relaxing your lower belly (abdomen). ?Relaxing your pelvic floor while pooping. Watch your condition for any changes. Keep all follow-up visits as told by your doctor. This is important. Contact a doctor if: You have pain that gets worse. You have a fever. You have not pooped for 4 days. You throw up (vomit). You are not hungry. You lose weight. You are bleeding from the anus. You have thin, pencil-like poop (stool). Get help right away if: You have a fever, and your symptoms suddenly get worse. You leak poop or have blood in your poop. Your belly feels hard or bigger than normal (is bloated). You have very bad belly pain. You feel dizzy or you faint. This information is not intended to replace advice given to you by your health care provider. Make sure you discuss any questions you have with your health care provider. Document Released: 10/28/2008 Document Revised: 04/24/2018 Document Reviewed: 10/30/2016 [employer] Patient Education [email or web address]. Follow Up Care 01/30/2022 18:58:05 With:Tomas FARRELL Address: [address] [place], [place] [phone]- Business (1) When:02/02/2022 20:23:17 Comments:Use of MiraLAX at home to help you have a bowel movement. Please follow-up with your primary care doctor in the next 2 to 3 days. Please return the ED for any new or worsening symptoms. [facility]09-07-2022 Evaluation + Plan noteExtracted from: Title:ED Note Author:Mati Taylor DO Date :01/30/22 Constipation (K59.00: Consti pation, unspecified) Dysuria (R30.0: Dysuria) Orders: dicyclomine, 10 mg = 1 cap(s), Oral, QID, X 7 day(s), # 14 cap(s), Refills(s) 0 dicyclomine, 10 mg = 1 cap(s), Cap, Oral, Once, Stop date 01/30/22 20:06:00 EDT, STAT, Start date 01/30/22 20:06:00 EDT, 01/30/22 20:06:00 EDT magnesium citrate, 300 mL, Liquid, Oral, Once, Stop date 01/30/22 20:07:00 EDT, STAT, Start date 01/30/22 20:07:00 EDT polyethylene glycol 3350, 17 gram, Oral, Daily, 255 gram, Refill(s) 0, dissolve in water before taking UA With Cult Reflex XR Abdomen 1 View Future Scheduled Tests Laboratory* TIBC Calculated 08/06/21 * Sodium Level 12/20/21 * Basic Metabolic Panel 03/27/21 * Ferritin 08/06/21 * Folate Level 08/06/21 * Hemoglobin 12/20/21 * Iron Level 08/06/21 * Lipase Level 08/06/21 * Vitamin B12 Level 08/06/21 Radiology* XR Foot 3+ Views Right 07/25/21 [facility]09-06-2022 Miscellaneous Notes* Telephone Encounter - Darshana Sanchez - 01/29/2022 11:13 AM EDT Contacted RN Ghazal ([facility]) patient is scheduled as requested below. Darshana Sanchez January 29, 2022 11:14 AM * Telephone Encounter - Ivonne Hernandez - 01/23/2022 4:57 PM EDT I tried reaching out to the staff at [facility] ([phone]) to schedule Ms. Dye asrequested, and was on terminal hold and nobody ever came to the phone. After several attempts, thisEncounter is being postponed so our scheduling team can try reaching them again in a few days. Ivonne HERNANDEZ January 23, 2022 4:59 PM * Telephone Encounter - Azul Sainz - 01/23/2022 1:27 PM EDT Patient's RN calling from [facility] stating that a cysto procedure was to be done onthe patient, but they have not heard anything. Please advise. [facility] Miscellaneous Notes* Telephone Encounter - Suellen Borges RN - 01/16/2022 5:45 PM EDT Reason for Call: appointment center called and stated pt was requesting an appointment for urinary retention but disconnected and requested a call back. Outcome: attempted to contact pt, no answer and VM box not set up, unable to leave a message. [facility] Hospital Discharge instructions Patient Education 01/14/2022 17:11:47 Mcdonough Catheter Care, Female-[facility] [place]Custom) Mcdonough Catheter Care, Female A Mcdonough catheter is a soft, flexible tube that is placed into the bladder to drain urine. The catheter has a balloon to hold it inside the bladder. A Mcdonough catheter may be inserted if: You leak urine or are not able to control when you urinate (urinary incontinence). You are not able to urinate when you need to (urinary retention). You had surgery. You have certain medical conditions, such as multiple sclerosis, dementia, or a spinal cord injury. To Prevent Infection: 1. Wash your hands with soap and water before and after handling your catheter. 2. Using mild soap and warm water on a clean washcloth; twice a day. Clean the area on your body closest to the catheter insertion site using a front to back motion, moving away from the catheter. Never wipe toward the catheter because this could sweep bacteria up into the urethra and cause infection. Remove all traces of soap. Pat the area dry with a clean towel. No tub baths. No lotions, powders, or sprays unless directed by your physician. 3. Keep the tube secure. Do not let the tube pull or catch when you are moving around. Attach the catheter to your leg so there is no tension on the catheter. The bag can be wore on the thigh. Use adhesive tape or a leg strap. If you are using adhesive tape, remove any sticky residue left behind by the previous tape you used. 4. Replace wet leg straps with dry ones. 5. Wear cotton underwear to absorb moisture and keep skin fitter. 6. Keep the drainage bag below the level of the bladder, but keep it off the floor. 7. Check throughout the day to be sure the catheter is working and urine is draining freely. Make sure the tubing does not become kinked or looped. 8. Do not pull on the catheter or try to remove it. Pulling could damage internal tissues. TAKING CARE OF THE DRAINAGE BAGS You will be given two drainage bags to take home. One is a large overnight drainage bag, and the other is a smaller leg bag that fits underneath clothing. You may wear the overnight bag at any time, but you should never wear the smaller leg bag at night, unless directed by your physician. Follow the instructions below for how to empty and change your drainage bags. Emptying the Drainage Bag You must empty your drainage bag when it is ? full. 1. Wash your hands with soap and water before and after handling your catheter. 2. Keep the drainage bag below your hips, below the level of your bladder. This stops urine from going back into the tubing and into your bladder. 3. Hold the dirty bag over the toilet or a clean container. 4. Open the pour spout at the bottom of the bag and empty the urine into the toilet or container. Do not let the pour spout touch the toilet, container, or any other surface. Doing so can place bacteria on the bag, which can cause an infection. 5. Clean the pour spout with a gauze pad or cotton ball that has rubbing alcohol on it. 6. Close the pour spout. 7. Attach the bag to your leg with adhesive tape or a leg strap. Changing the Drainage Bag 1. Wash your hands with soap and water before and after handling your catheter. 2. Pinch off the rubber catheter so that urine does not spill out. 3. Disconnect the catheter tube from the drainage tube at the connection valve. Do not let the tubes touch any surface. 4. Clean the end of the catheter tube with an alcohol wipe. Use a different alcohol wipe to clean the end of the drainage tube. 5. Connect the catheter tube to the drainage tube of the clean drainage bag. 6. Attach the new bag to the leg with adhesive tape or a leg strap. Avoid attaching the new bag tootightly. 7. Place a cap on the drainage bag not in use and store in a clean towel. SEEK MEDICAL CARE IF: Your urine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 ice if it does not help with thepain. Squeeze a soft ball or a foam pad as much as possible. This helps to keep the shoulder from swelling. It also helps to strengthen the arm. General instructions Take [id number] and prescription medicines only as told by your health care provider. Keep all follow-up visits as told by your health care provider. This is important. Contact a health care provider if: Your pain gets worse. Your pain is not relieved with medicines. New pain develops in your arm, hand, or fingers. Get help right away if: Your arm, hand, or fingers: ?Tingle. ?Become numb. ?Become swollen. ?Become painful. ?Turn white or blue. Summary Shoulder pain can be caused by an injury, overuse, or arthritis. Pay attention to changes in your symptoms. Let your health care provider know about them. This condition may be treated with a sling, ice, and pain medicines. Contact your health care provider if the pain gets worse or new pain develops. Get help right away if your arm, hand, or fingers tingle or become numb, swollen, or painful. Keep all follow-up visits as told by your health care provider. This is important. This information is not intended to replace advice given to you by your health care provider. Make sure you discuss any questions you have with your health care provider. Document Released: 02/19/2006 Document Revised: 11/24/2018 Document Reviewed: 11/24/2018 [employer] Patient Education 2020 [employer]. 11/17/2021 18:35:18 Dysuria Dysuria Dysuria is pain or discomfort while urinating. The pain or discomfort may be felt in the part of your body that drains urine from the bladder (urethra) or in the surrounding tissue of the genitals. The pain may also be felt in the groin area, lower abdomen, or lower back. You may have to urinate frequently or have the sudden feeling that you have to urinate (urgency). Dysuria can affect both men and women, but it is more common in women. Dysuria can be caused by many different things, including: Urinary tract infection. Kidney stones or bladder stones. Certain sexually transmitted infections (STIs), such as chlamydia. Dehydration. Inflammation of the tissues of the vagina. Use of certain medicines. Use of certain soaps or scented products that cause irritation. Follow these instructions at home: General instructions Watch your condition for any changes. Urinate often. Avoid holding urine for long periods of time. After a bowel movement or urination, women should cleanse from front to back, using each tissue only once. Urinate after sexual intercourse. Keep all follow-up visits as told by your health care provider. This is important. If you had any tests done to find the cause of dysuria, it is up to you to get your test results. Ask your health care provider, or the department that is doing the test, when your results will be ready. Eating and drinking Drink enough fluid to keep your urine pale yellow. Avoid caffeine, tea, and alcohol. They can irritate the bladder and make dysuria worse. In men, alcohol may irritate the prostate. Medicines Take hvlr-egn-aenpqes and prescription medicines only as told by your health care provider. If you were prescribed an antibiotic medicine, take it as told by your health care provider. Do notstop taking the antibiotic even if you start to feel better. Contact a health care provider if: You have a fever. You develop pain in your back or sides. You have nausea or vomiting. You have blood in your urine. You are not urinating as often as you usually do. Get help right away if: Your pain is severe and not relieved with medicines. You cannot eat or drink without vomiting. You are confused. You have a rapid heartbeat while at rest. You have shaking or chills. You feel extremely weak. Summary Dysuria is pain or discomfort while urinating. Many different conditions can lead to dysuria. If you have dysuria, you may have to urinate frequently or have the sudden feeling that you have tourinate (urgency). Watch your condition for any changes. Keep all follow-up visits as told by your health care provider. Make sure that you urinate often and drink enough fluid to keep your urine pale yellow. This information is not intended to replace advice given to you by your health care provider. Make sure you discuss any questions you have with your health care provider. Document Released: 02/07/2005 Document Revised: 04/24/2018 Document Reviewed: 02/26/2018 [employer] Patient Education 2020 [employer] Follow Up Care 11/17/2021 17:16:50 With:Tomas FARRELL Address: [address] [place], [place] [phone]- Business (1) When:11/20/2021 18:13:18 [facility]06-24-2022 Hospital Discharge instructions Patient Education 11/16/2021 17:23:53 Urinary Tract Infection, Adult, Bhbq-yg-Dyit Urinary Tract Infection, Adult A urinary tract infection (UTI) is an infection of any part of the urinary tract. The urinary tractincludes: The kidneys. The ureters. The bladder. The urethra. These organs make, store, and get rid of pee (urine) in the body. What are the causes? This is caused by germs (bacteria) in your genital area. These germs grow and cause swelling (inflammation) of your urinary tract. What increases the risk? You are more likely to develop this condition if: You have a small, thin tube (catheter) to drain pee. You cannot control when you pee or poop (incontinence). You are female, and: ?You use these methods to prevent : ?A medicine that kills sperm (spermicide). ?A device that blocks sperm (diaphragm). ?You have low levels of a female hormone (estrogen). ?You are . You have genes that add to your risk. You are sexually active. You take antibiotic medicines. You have trouble peeing because of: ?A prostate that is bigger than normal, if you are male. ?A blockage in the part of your body that drains pee from the bladder (urethra). ?A kidney stone. ?A nerve condition that affects your bladder (neurogenic bladder). ?Not getting enough to drink. ?Not peeing often enough. You have other conditions, such as: ?Diabetes. ?A weak disease-fighting system (immune system). ?Sickle cell disease. ?Gout. ?Injury of the spine. What are the signs or symptoms? Symptoms of this condition include: Needing to pee right away (urgently). Peeing often. Peeing small amounts often. Pain or burning when peeing. Blood in the pee. Pee that smells bad or not like normal. Trouble peeing. Pee that is cloudy. Fluid coming from the vagina, if you are female. Pain in the belly or lower back. Other symptoms include: Throwing up (vomiting). No urge to eat. Feeling mixed up (confused). Being tired and grouchy (irritable). A fever. Watery poop (diarrhea). How is this treated? This condition may be treated with: Antibiotic medicine. Other medicines. Drinking enough water. Follow these instructions at home: Medicines Take qmbf-bys-scnbjxs and prescription medicines only as told by your doctor. If you were prescribed an antibiotic medicine, take it as told by your doctor. Do not stop taking it even if you start to feel better. General instructions Make sure you: ?Pee until your bladder is empty. ?Do not hold pee for a long time. ?Empty your bladder after sex. ?Wipe from front to back after pooping if you are a female. Use each tissue one time when you wipe. Drink enough fluid to keep your pee pale yellow. Keep all follow-up visits as told by your doctor. This is important. Contact a doctor if: You do not get better after 1 2 days. Your symptoms go away and then come back. Get help right away if: You have very bad back pain. You have very bad pain in your lower belly. You have a fever. You are sick to your stomach (nauseous). You are throwing up. Summary A urinary tract infection (UTI) is an infection of any part of the urinary tract. This condition is caused by germs in your genital area. There are many risk factors for a UTI. These include having a small, thin tube to drain pee and notbeing able to control when you pee or poop. Treatment includes antibiotic medicines for germs. Drink enough fluid to keep your pee pale yellow. This information is not intended to replace advice given to you by your health care provider. Make sure you discuss any questions you have with your health care provider. Document Released: 10/28/2008 Document Revised: 04/29/2019 Document Reviewed: 11/19/2018 [employer] Patient Education 2020 [employer]. Follow Up Care 11/16/2021 15:18:15 With:Tomas FARRELL Address: [address] [place] [address] Business (1) When:11/19/2021 17:06:09 Comments:Follow-up with your primary care provider in 3 to 5 days. Take antibiotic as prescribed. If symptoms worsen, do not improve, or new symptoms arise please report back to emergency department for evaluation. [facility]06-24-2022 Evaluation + Plan note Diagnostic Tests Pending * Urine Culture 11/16/21 Future Scheduled Tests Laboratory* TIBC Calculated 08/06/21 * Basic Metabolic Panel 03/27/21 * Ferritin 08/06/21 * Folate Level 08/06/21 * Iron Level 08/06/21 * Lipase Level 08/06/21 * Vitamin B12 Level 08/06/21 Radiology* XR Foot 3+ Views Right 07/25/21 [facility]06-16-2022 Hospital Discharge instructions Patient Education 11/08/2021 19:21:18 Near-Syncope, Fklx-ho-Yzgc Near-Syncope Near-syncope is when you suddenly get weak or dizzy, or you feel like you might pass out (faint). This may also be called presyncope. This is due to a lack of blood flow to the brain. During an episode of near-syncope, you may: Feel dizzy, weak, or light-headed. Feel sick to your stomach (nauseous). See all white or all black. See spots. Have cold, clammy skin. This condition is caused by a sudden decrease in blood flow to the brain. This decrease can result from various causes, but most of those causes are not dangerous. However, near-syncope may be a signof a serious medical problem, so it is important to seek medical care. Follow these instructions at home: Medicines Take zyww-acg-vrocfcw and prescription medicines only as told by your doctor. If you are taking blood pressure or heart medicine, get up slowly and spend many minutes getting ready to sit and then stand. This can help with dizziness. General instructions Be aware of any changes in your symptoms. Talk with your doctor about your symptoms. You may need to have testing to find the cause of your near-syncope. If you start to feel like you might pass out, lie down right away. Raise (elevate) your feet above the level of your heart. Breathe deeply and steadily. Wait until all of the symptoms are gone. Have someone stay with you until you feel stable. Do not drive, use machinery, or play sports until your doctor says it is okay. Drink enough fluid to keep your pee (urine) pale yellow. Keep all follow-up visits as told by your doctor. This is important. Get help right away if you: Have a seizure. Have pain in your: ?Chest. ?Belly (abdomen). ?Back. Faint once or more than once. Have a very bad headache. Are bleeding from your mouth or butt. Have black or tarry poop (stool). Have a very fast or uneven heartbeat (palpitations). Are mixed up (confused). Have trouble walking. Are very weak. Have trouble seeing. These symptoms may be an emergency. Do not wait to see if the symptoms will go away. Get medical help right away. Call your local emergency services (911 in the [place] Do not drive yourself to the hospital. Summary Near-syncope is when you suddenly get weak or dizzy, or you feel like you might pass out (faint). This condition is caused by a lack of blood flow to the brain. Near-syncope may be a sign of a serious medical problem, so it is important to seek medical care. This information is not intended to replace advice given to you by your health care provider. Make sure you discuss any questions you have with your health care provider. Document Released: 10/28/2008 Document Revised: 09/03/2019 Document Reviewed: 03/31/2019 [employer] Patient Education 2019 [employer]. Follow Up Care 11/08/2021 17:11:22 With:Tomas FARRELL Address: [address] [place] [phone]- Business (1) When:Within 3 Day(s) [facility]06-16-2022 Evaluation + Plan noteExtracted from: Title:ED Note Author:Ana Layton PA-C Marlon e:11/08/21 1. Pre-syncope (R55: Syncope and collapse) Orders: Automated Diff Basic Metabolic Panel CBC w/ Auto Diff eGFR Troponin 0 Hr. UA With Cult Reflex Urine Culture 71-year-old female presents to the ED with sounds like a near syncopal event. In the ED patient is afebrile, vital signs are stable, no acute distress. Patient has no symptoms currently. No neurological deficit on exam. Patient does have evidence of UTI on UA, is currently being treated with antibiotics per PCP. Labs reviewed and noted. Hyponatremia of 128 noted which is at the patient's baseline, otherwise labs are unremarkable. On reexamination patient is resting comfortably in bed. States that she is feeling better and would like to be discharged home. This is reasonable. Patient discharged home with instructions to continue antibiotics and is to follow with her PCP. She is to return to the ED with any new or worsening symptoms. Patient voices understanding and is agreeable to plan. Diagnostic Tests Pending * Urine Culture 11/08/21 Future Scheduled Tests Laboratory* TIBC Calculated 08/06/21 * Basic Metabolic Panel 03/27/21 * Ferritin 08/06/21 * Folate Level 08/06/21 * Iron Level 08/06/21 * Lipase Level 08/06/21 * Vitamin B12 Level 08/06/21 Radiology* XR Foot 3+ Views Right 07/25/21 [facility]06-14-2022 Hospital Discharge instructions Patient Education 11/06/2021 18:52:43 Dysuria Dysuria Dysuria is pain or discomfort while urinating. The pain or discomfort may be felt in the part of your body that drains urine from the bladder (urethra) or in the surrounding tissue of the genitals. The pain may also be felt in the groin area, lower abdomen, or lower back. You may have to urinate frequently or have the sudden feeling that you have to urinate (urgency). Dysuria can affect both men and women, but it is more common in women. Dysuria can be caused by many different things, including: Urinary tract infection. Kidney stones or bladder stones. Certain sexually transmitted infections (STIs), such as chlamydia. Dehydration. Inflammation of the tissues of the vagina. Use of certain medicines. Use of certain soaps or scented products that cause irritation. Follow these instructions at home: General instructions Watch your condition for any changes. Urinate often. Avoid holding urine for long periods of time. After a bowel movement or urination, women should cleanse from front to back, using each tissue only once. Urinate after sexual intercourse. Keep all follow-up visits as told by your health care provider. This is important. If you had any tests done to find the cause of dysuria, it is up to you to get your test results. Ask your health care provider, or the department that is doing the test, when your results will be ready. Eating and drinking Drink enough fluid to keep your urine pale yellow. Avoid caffeine, tea, and alcohol. They can irritate the bladder and make dysuria worse. In men, alcohol may irritate the prostate. Medicines Take ebuu-wed-owysbto and prescription medicines only as told by your health care provider. If you were prescribed an antibiotic medicine, take it as told by your health care provider. Do notstop taking the antibiotic even if you start to feel better. Contact a health care provider if: You have a fever. You develop pain in your back or sides. You have nausea or vomiting. You have blood in your urine. You are not urinating as often as you usually do. Get help right away if: Your pain is severe and not relieved with medicines. You cannot eat or drink without vomiting. You are confused. You have a rapid heartbeat while at rest. You have shaking or chills. You feel extremely weak. Summary Dysuria is pain or discomfort while urinating. Many different conditions can lead to dysuria. If you have dysuria, you may have to urinate frequently or have the sudden feeling that you have tourinate (urgency). Watch your condition for any changes. Keep all follow-up visits as told by your health care provider. Make sure that you urinate often and drink enough fluid to keep your urine pale yellow. This information is not intended to replace advice given to you by your health care provider. Make sure you discuss any questions you have with your health care provider. Document Released: 02/07/2005 Document Revised: 04/24/2018 Document Reviewed: 02/26/2018 [employer] Patient Education 2020 [employer]. Follow Up Care 11/06/2021 18:04:53 With:Tomas FARRELL DO, FAM Address: [address] [place] [phone]- When:11/09/2021 [facility]06-07-2022 History of Present illness Narrative* Osmar Ferreira MD - 10/30/2021 11:37 AM EDT Behavioral health outpatient progress note [facility] [id number] [facility] 10/30/2021 Osmar Ferreira MD Provider Location: [facility] Patient: Maegan Dye Date of : 1950 (71 y.o. female) PCP: Tomas Farrell DO Reason for visit: Psychotropic management follow-up visit Interval history: Patient is seen alone for follow-up. She is maintaining baseline stability. She has no new concernsor new stressors to report. She reports no decline in her moods or behaviors since she was last seen. Patient denies having any psychotic symptoms since she was last seen. Mood was described as good, patient is not reporting any pervasive sadness or anhedonia. Patient has been able to enjoy her fun things and has been taking care of her ADLs and hygiene. Reports adequate energy and motivation. Denies any excessive fatigue or tiredness. Her physical mobility does frustrate her at times but overall she feels she has been able to take care of herself. Denies feeling hopeless or worthless. Appetite is adequate and within normal limits. Patient is averaging between 6 to 8 hours of sleep nightly. She denies any ongoing suicidal ideation. Does not report any ongoing manic or hypomanic mood symptoms. She denies any pervasive irritable orinflated mood. Denies any ongoing racing thoughts or flight of ideas. Speech is within normal limits. She is not displaying any psychomotor agitation. Patient does not endorse any bothersome trauma symptoms at this time. Denies any intrusive memoriesor flashbacks of trauma. Anxiety control has been adequate. Does report a couple of times a week she will have breakthrough anxiety when she gets restless and tense but overall she feels she has not been worrying excessively. Denies feeling agoraphobic at this time. Medications assessed: Patient reports good compliance. Patient verbalized understanding of cons of being on Klonopin and Ambien long-term. Patient wants to continue the current plan. We discussed alternatives. At this time benefits outweigh any cons. Patient is not displaying any memory deficits and does not report any falls or confusion from these medications. Interpersonal issues were discussed: Support was provided Brief supportive/insight oriented/behavior modification counseling was provided Goals and objectives of treatment: Maintain baseline stability Maintain good anxiety control Prevent psychiatric hospitalizations Prevent breakthrough psychosis The following portions of the patient's history were reviewed and updated as appropriate: allergies, current medications, past family history, past medical history, past social history, past surgicalhistory and problem list. Review of Systems Constitutional: Negative. HENT: Negative. Eyes: Negative. Respiratory: Negative. Cardiovascular: Negative. Gastrointestinal: Negative. Endocrine: Negative. Genitourinary: Negative. Musculoskeletal: Positive for gait problem. Skin: Negative. Hematological: Negative. Patient's Medications New Prescriptions No medications on file Previous Medications ALBUTEROL (PROVENTIL HFA;VENTOLIN HFA) 90 MCG/ACTUATION INHALER Inhale 1 puff every 4 (four) hours as needed for wheezing CELECOXIB (CELEBREX) 200 MG CAPSULE Take 200 mg by mouth daily CITALOPRAM (CELEXA) 20 MG TABLET Take 1 (one) tablet (20 mg total) by mouth daily . CLONAZEPAM (KLONOPIN) 1 MG TABLET Take 1 (one) tablet (1 mg total) by mouth 3 (three) times a day . CYANOCOBALAMIN (B-12) 1,000 MCG/ML INJECTION Inject 1,000 mcg into the shoulder, thigh, or buttocksevery 30 (thirty) days CYCLOBENZAPRINE (FLEXERIL) 10 MG TABLET Take 10 mg by mouth 2 (two) times a day DIPHENHYDRAMINE-ACETAMINOPHEN (TYLENOL PM) 25-500 MG TAB Take 1 tablet by mouth nightly as needed ELIQUIS 5 MG TAB Take 5 mg by mouth daily LISINOPRIL (PRINIVIL,ZESTRIL) 20 MG TABLET Take 20 mg by mouth daily LYRICA 150 MG CAPSULE Take 150 mg by mouth 2 (two) times a day NALOXONE (NARCAN) 4 MG/ACTUATION SPRY Administer 1 spray into one nostril for known or suspected opioid overdose. If patient worsens or does not respond, may repeat in 2-3 minutes. . OXYCODONE-ACETAMINOPHEN (PERCOCET) 5-325 MG PER TABLET Take 1 tablet by mouth every 4 to 6 hours asneeded PANTOPRAZOLE (PROTONIX) 40 MG TABLET Take 40 mg by mouth daily PROMETHAZINE (PHENERGAN) 25 MG TABLET Take 25 mg by mouth every 8 (eight) hours THIOTHIXENE (NAVANE) 2 MG CAPSULE Take 1 (one) capsule (2 mg total) by mouth at bedtime . TRAZODONE (DESYREL) 150 MG TABLET Take 1 (one) tablet (150 mg total) by mouth nightly . ZOLPIDEM (AMBIEN) 5 MG TABLET Take 1 (one) tablet (5 mg total) by mouth nightly as needed for sleep. Modified Medications No medications on file Discontinued Medications No medications on file Assessment/Plan: Mental status examination: Patient was able to engage and is cooperative. Reports good mood, affectwas appropriate and full range. Her speech is not pressured, she denies any ongoing racing thoughts, or flight of ideas, attention and concentration: Adequate. Denies any ongoing thought content or thought process abnormalities. Denies any ongoing perceptual disturbances or command hallucinations. Denies any ongoing suicidal ideation intent or plan. Memory is intact and age-appropriate. Insight/judgment: Limited to fair. Language/intellect: Average Problem List Items Addressed This Visit Bipolar 1 disorder, manic, mild (HCC) - Primary: Improved Panic Disorder with Agoraphobia Other Visit Diagnoses Post traumatic stress disorder (PTSD) Insomnia due to mental disorder Current Global assessment of functionin Treatment Plan: Pharmacological management: Alternative medication plans were discussed with the patient/guardian. All relevant side effects and potential adverse effects were discussed with the patient/guardian. Standard cautions and potential benefits were discussed. FDA label and OFF label uses of medications were discussed. Patient/Guardian consented to the start/continuation of the following: Continue Celexa 20 mg daily Continue thiothixene 2 mg daily at bedtime Continue Ambien 5 mg daily at bedtime Continue Klonopin 1 mg 1 tablet 3 times daily. Anxiety Will monitor side effects and progress and adjust medications appropriately Crisis Intervention plan was discussed and agreed upon. Patient/Guardian will call 911 in case of emergency. Emergency contact information was provided to the patient/guardian. Laboratory and other tests: See orders. Psychotherapy:none Follow up as scheduled or return early if needed. School or community referral: none Treatment Goals and Objectives discussed. Other Referrals/Consults/Psychological Testing AIMS exam completed: No abnormal involuntary movements noted documented in this [id number] Evaluation + Plan noteExtracted from: Title:ED Note Author:Johny Willson DO Date: Acute UTI (N39.0: Urinary tr act infection, site not specified) Acute vomiting (R11.10: Vomiting, unspecified) Hyponatremia (E87.1: Hypo-osmolality and hyponatremia) Orders: acetaminophen, 650 mg = 2 tab(s), Tab, Oral, Once, Stop date 10/27/21 10:42:00 EDT, STAT, Start date 10/27/21 10:42:00 EDT, 10/27/21 10:42:00 EDT Sodium Chloride 0.9% intravenous solution, 500 mL, Soln-IV, IV, Once, Stop date 10/27/21 9:53:00 EDT, STAT, Start date 10/27/21 9:53:00 EDT, 500 mL/hr, Infuse over 1, hour(s) Sodium Chloride 0.9% intravenous solution 500 mL, 500 mL, IV, 999 mL/hr, STAT, Start date 10/27/21 10:42:00 EDT, 0.5 hour(s), Total volume (mL): 500, 63 kg, 1.7, m2 Automated Diff Basic Metabolic Panel CBC w/ Auto Diff ECG 12 Lead Adult eGFR Extra Blue Tube Extra SST Tube Hepatic Function Panel Lipase Level Saline Lock Insert Troponin 0 Hr. UA With Cult Reflex Future Appointments Appointment Date:11/08/2021 11:40:00 AM Scheduled Provider:Tomas FRARELL DO Location:[facility] Appointment Type: Open Future Scheduled Tests Laboratory* TIBC Calculated 08/06/21 * Basic Metabolic Panel 11//21 * Ferritin 08/06/21 * Folate Level 08/06/21 * Iron Level 08/06/21 * Lipase Level 08/06/21 * Vitamin B12 Level 08/06/21 Radiology* XR Foot 3+ Views Right 07/25/21 [facility]06-04-2022 Hospital Discharge instructions Patient Education 10/27/2021 11:22:48 Urinary Tract Infection, Adult Urinary Tract Infection, Adult A urinary tract infection (UTI) is an infection of any part of the urinary tract. The urinary tractincludes the kidneys, ureters, bladder, and urethra. These organs make, store, and get rid of urinein the body. Your health care provider may use other names to describe the infection. An upper UTI affects the ureters and kidneys (pyelonephritis). A lower UTI affects the bladder (cystitis) and urethra (urethritis). What are the causes? Most urinary tract infections are caused by bacteria in your genital area, around the entrance to your urinary tract (urethra). These bacteria grow and cause inflammation of your urinary tract. What increases the risk? You are more likely to develop this condition if: You have a urinary catheter that stays in place (indwelling). You are not able to control when you urinate or have a bowel movement (you have incontinence). You are female and you: ?Use a spermicide or diaphragm for control. ?Have low estrogen levels. ?Are . You have certain genes that increase your risk (genetics). You are sexually active. You take antibiotic medicines. You have a condition that causes your flow of urine to slow down, such as: ?An enlarged prostate, if you are male. ?Blockage in your urethra (stricture). ?A kidney stone. ?A nerve condition that affects your bladder control (neurogenic bladder). ?Not getting enough to drink, or not urinating often. You have certain medical conditions, such as: ?Diabetes. ?A weak disease-fighting system (immunesystem). ?Sickle cell disease. ?Gout. ?Spinal cord injury. What are the signs or symptoms? Symptoms of this condition include: Needing to urinate right away (urgently). Frequent urination or passing small amounts of urine frequently. Pain or burning with urination. Blood in the urine. Urine that smells bad or unusual. Trouble urinating. Cloudy urine. Vaginal discharge, if you are female. Pain in the abdomen or the lower back. You may also have: Vomiting or a decreased appetite. Confusion. Irritability or tiredness. A fever. Diarrhea. The first symptom in older adults may be confusion. In some cases, they may not have any symptoms until the infection has worsened. How is this diagnosed? This condition is diagnosed based on your medical history and a physical exam. You may also have other tests, including: Urine tests. Blood tests. Tests for sexually transmitted infections (STIs). If you have had more than one UTI, a cystoscopy or imaging studies may be done to determine the cause of the infections. How is this treated? Treatment for this condition includes: Antibiotic medicine. Iwyf-jan-vyomres medicines to treat discomfort. Drinking enough water to stay hydrated. If you have frequent infections or have other conditions such as a kidney stone, you may need to see a health care provider who specializes in the urinary tract (urologist). In rare cases, urinary tract infections can cause sepsis. Sepsis is a life- threatening condition that occurs when the body responds to an infection. Sepsis is treated in the hospital with IV antibiotics, fluids, and other medicines. Follow these instructions at home: Medicines Take sokt-kja-gqyxomc and prescription medicines only as told by your health care provider. If you were prescribed an antibiotic medicine, take it as told by your health care provider. Do notstop using the antibiotic even if you start to feel better. General instructions Make sure you: ?Empty your bladder often and completely. Do not hold urine for long periods of time. ?Empty your bladder after sex. ?Wipe from front to back after a bowel movement if you are female. Use each tissue one time when you wipe. Drink enough fluid to keep your urine pale yellow. Keep all follow-up visits as told by your health care provider. This is important. Contact a health care provider if: Your symptoms do not get better after 1 2 days. Your symptoms go away and then return. Get help right away if you have: Severe pain in your back or your lower abdomen. A fever. Nausea or vomiting. Summary A urinary tract infection (UTI) is an infection of any part of the urinary tract, which includes the kidneys, ureters, bladder, and urethra. Most urinary tract infections are caused by bacteria in your genital area, around the entrance to your urinary tract (urethra). Treatment for this condition often includes antibiotic medicines. If you were prescribed an antibiotic medicine, take it as told by your health care provider. Do notstop using the antibiotic even if you start to feel better. Keep all follow-up visits as told by your health care provider. This is important. This information is not intended to replace advice given to you by your health care provider. Make sure you discuss any questions you have with your health care provider. Document Released: 02/19/2006 Document Revised: 04/29/2019 Document Reviewed: 11/19/2018 [employer] Patient Education 2020 [employer]. 10/27/2021 11:22:48 Hyponatremia Hyponatremia Hyponatremia is when the amount of salt (sodium) in your blood is too low. When sodium levels are low, your cells absorb extra water, which causes them to swell. The swelling happens throughout the body, but it mostly affects the brain. What are the causes? This condition may be caused by: Certain medical conditions, such as: ?Heart, kidney, or liver problems. ?Thyroid problems. ?Adrenal gland problems. ?Metabolic conditions, such as Hamilton disease or syndrome of inappropriate antidiuretic hormone (SIADH). Severe vomiting or diarrhea. Certain medicines or illegal drugs. Dehydration. Drinking too much water. Eating a diet that is low in sodium. Large muñoz on your body. Excessive sweating. What increases the risk? You are more likely to develop this condition if you: Have long-term (chronic) kidney disease. Have heart failure. Have a medical condition that causes frequent or excessive diarrhea. Participate in intense physical activities, such as marathon running. Take certain medicines that affect the sodium and fluid balance in the blood. Some of these medicine types include: ?Diuretics. ?NSAIDs. ?Some opioid pain medicines. ?Some antidepressants. ?Some seizure prevention medicines. What are the signs or symptoms? Symptoms of this condition include: Headache. Nausea and vomiting. Being very tired (lethargic). Muscle weakness and cramping. Loss of appetite. Feeling weak or light-headed. Severe symptoms of this condition include: Confusion. Agitation. Having a rapid heart rate. Passing out (fainting). Seizures. Coma. How is this diagnosed? This condition is diagnosed based on: A physical exam. Your medical history. Tests, including: ?Blood tests. ?Urine tests. How is this treated? Treatment for this condition depends on the cause. Treatment may include: Getting fluids through an IV that is inserted into one of your veins. Medicines to correct the sodium imbalance. If medicines are causing the condition, the medicines will need to be adjusted. Limiting your water or fluid intake to get the correct sodium balance. Monitoring in the hospital setting to closely watch your symptoms for improvement. Follow these instructions at home: Take yxev-tfc-kkludjz and prescription medicines only as told by your health care provider. Many medicines can make this condition worse. Talk with your health care provider about any medicines that you are currently taking. Carefully follow a recommended diet as told by your health care provider. Carefully follow instructions from your health care provider about fluid restrictions. Do not drink alcohol. Keep all follow-up visits as told by your health care provider. This is important. Contact a health care provider if: You develop worsening nausea, fatigue, headache, confusion, or weakness. Your symptoms go away and then return. You have problems following the recommended diet. Get help right away if: You have a seizure. You pass out. You have ongoing diarrhea or vomiting. Summary Hyponatremia is when the amount of salt (sodium) in your blood is too low. When sodium levels are low, your cells absorb extra water, which causes them to swell. The swelling happens throughout the body, but it mostly affects the brain. Treatment for this condition depends on the cause. It may include IV fluids, medicines, and limiting your fluid intake. This information is not intended to replace advice given to you by your health care provider. Make sure you discuss any questions you have with your health care provider. Document Released: 05/02/2003 Document Revised: 03/26/2019 Document Reviewed: 03/26/2019 [employer] Patient Education 2020 [employer] 10/27/2021 11:22:48 Nausea and Vomiting, Adult Nausea and Vomiting, Adult Nausea is the feeling that you have an upset stomach or that you are about to vomit. Vomiting is when stomach contents are thrown up and out of the mouth as a result of nausea. Vomiting can make you feel weak and cause you to become dehydrated. Dehydration can make you feel tired and thirsty, cause you to have a dry mouth, and decrease how often you urinate. Older adults and people with other diseases or a weak disease-fighting system (immune system) are at higher risk for dehydration. It is important to treat your nausea and vomiting as told by your health care provider. Follow these instructions at home: Watch your symptoms for any changes. Tell your health care provider about them. Follow these instructions to care for yourself at home. Eating and drinking Take an oral rehydration solution (ORS). This is a drink that is sold at pharmacies and retail stores. Drink clear fluids slowly and in small amounts as you are able. Clear fluids include water, ice chips, low-calorie sports drinks, and fruit juice that has water added (diluted fruit juice). Eat bland, fhvp-bs-mktqux foods in small amounts as you are able. These foods include bananas, applesauce, rice, lean meats, toast, and crackers. Avoid fluids that contain a lot of sugar or caffeine, such as energy drinks, sports drinks, and soda. Avoid alcohol. Avoid spicy or fatty foods. General instructions Take euyn-crs-npwkbcq and prescription medicines only as told by your health care provider. Drink enough fluid to keep your urine pale yellow. Wash your hands often using soap and water. If soap and water are not available, use hand manager of internal audit. Make sure that all people in your household wash their hands well and often. Rest at home while you recover. Watch your condition for any changes. Breathe slowly and deeply when you feel nauseated. Keep all follow-up visits as told by your health care provider. This is important. Contact a health care provider if: Your symptoms get worse. You have new symptoms. You have a fever. You cannot drink fluids without vomiting. Your nausea does not go away after 2 days. You feel light-headed or dizzy. You have a headache. You have muscle cramps. You have a rash. You have pain while urinating. Get help right away if: You have pain in your chest, neck, arm, or jaw. You feel extremely weak or you faint. You have persistent vomiting. You have vomit that is bright red or looks like black coffee grounds. You have bloody or black stools or stools that look like tar. You have a severe headache, a stiff neck, or both. You have severe pain, cramping, or bloating in your abdomen. You have difficulty breathing, or you are breathing very quickly. Your heart is beating very quickly. Your skin feels cold and clammy. You feel confused. You have signs of dehydration, such as: ?Dark urine, very little urine, or no urine. ?Cracked lips. ?Dry mouth. ?Sunken eyes. ?Sleepiness. ?Weakness. These symptoms may represent a serious problem that is an emergency. Do not wait to see if the symptoms will go away. Get medical help right away. Call your local emergency services (911 in the [place] Do not drive yourself to the hospital. Summary Nausea is the feeling that you have an upset stomach or that you are about to vomit. As nausea getsworse, it can lead to vomiting. Vomiting can make you feel weak and cause you to become dehydrated. Follow instructions from your health care provider about eating and drinking to prevent dehydration. Take cwop-wod-zsiiepq and prescription medicines only as told by your health care provider. Contact your health care provider if your symptoms get worse, or you have new symptoms. Keep all follow-up visits as told by your health care provider. This is important. This information is not intended to replace advice given to you by your health care provider. Make sure you discuss any questions you have with your health care provider. Document Released: 05/12/2006 Document Revised: 09/03/2019 Document Reviewed: 10/20/2018 [employer] Patient Education 2020 [employer]. Follow Up Care 10/27/2021 09:47:43 With:Tomas FARRELL Address: [address] [place] [phone] Business (1) When:10/30/2021 11:22:01 Comments:Call the office of your primary care doctor to arrange for follow-up within the above-stated timeframe. Follow-up with your primary care doctor about this ED visit. You should review your labs, imaging, and diagnoses from this ED visit with your primary care physician. If you were prescribed medications you should discuss possible side-effects and drug interactions with your pharmacist. Call 911 or go to the nearest Emergency Department if you develop any new or worsening symptoms.Follow-up with your primary care physician within the next week for repeat sodium level. Stop taking Keflex. Begin taking the Macrobid. Use Zofran for nausea and vomiting.Seek immediate medical attention if you dev elop:worsening abdominal pain, new or worsening nausea, new or worsening vomiting, new or worseningdiarrhea, chest pain, shortness of breath, pain with urination, problems urinating, fever, chills, weakness, or any new or worsening symptoms. [facility]06-01-2022 Hospital Discharge instructions Patient Education 10/23/2021 22:11:06 Nonspecific Chest Pain, Adult, Kzuq-xs-Pbrd Nonspecific Chest Pain Chest pain can be caused by many different conditions. Some causes of chest pain can be life-threatening. These will require treatment right away. Serious causes of chest pain include: Heart attack. A tear in the body's main blood vessel. Redness and swelling (inflammation) around your heart. Blood clot in your lungs. Other causes of chest pain may not be so serious. These include: Heartburn. Anxiety or stress. Damage to bones or muscles in your chest. Lung infections. Chest pain can feel like: Pain or discomfort in your chest. Crushing, pressure, aching, or squeezing pain. Burning or tingling. Dull or sharp pain that is worse when you move, cough, or take a deep breath. Pain or discomfort that is also felt in your back, neck, jaw, shoulder, or arm, or pain that spreads to any of these areas. It is hard to know whether your pain is caused by something that is serious or something that is not so serious. So it is important to see your doctor right away if you have chest pain. Follow these instructions at home: Medicines Take soef-ysx-ggtcusf and prescription medicines only as told by your doctor. If you were prescribed an antibiotic medicine, take it as told by your doctor. Do not stop taking the antibiotic even if you start to feel better. Lifestyle Rest as told by your doctor. Do not use any products that contain nicotine or tobacco, such as cigarettes, e- cigarettes, and chewing tobacco. If you need help quitting, ask your doctor. Do not drink alcohol. Make lifestyle changes as told by your doctor. These may include: ?Getting regular exercise. Ask your doctor what activities are safe for you. ?Eating a heart-healthy diet. A diet and clerical specialist (dietitian) can help you to learn healthy eating options. ?Staying at a healthy weight. ?Treating diabetes or high blood pressure, if needed. ?Lowering your stress. Activities such as yoga and relaxation techniques can help. General instructions Pay attention to any changes in your symptoms. Tell your doctor about them or any new symptoms. Avoid any activities that cause chest pain. Keep all follow-up visits as told by your doctor. This is important. You may need more testing if your chest pain does not go away. Contact a doctor if: Your chest pain does not go away. You feel depressed. You have a fever. Get help right away if: Your chest pain is worse. You have a cough that gets worse, or you cough up blood. You have very bad (severe) pain in your belly (abdomen). You pass out (faint). You have either of these for no clear reason: ?Sudden chest discomfort. ?Sudden discomfort in your arms, back, neck, or jaw. You have shortness of breath at any time. You suddenly start to sweat, or your skin gets clammy. You feel sick to your stomach (nauseous). You throw up (vomit). You suddenly feel lightheaded or dizzy. You feel very weak or tired. Your heart starts to beat fast, or it feels like it is skipping beats. These symptoms may be an emergency. Do not wait to see if the symptoms will go away. Get medical help right away. Call your local emergency services (911 in the [place] Do not drive yourself to the hospital. Summary Chest pain can be caused by many different conditions. The cause may be serious and need treatment right away. If you have chest pain, see your doctor right away. Follow your doctor's instructions for taking medicines and making lifestyle changes. Keep all follow-up visits as told by your doctor. This includes visits for any further testing if your chest pain does not go away. Be sure to know the signs that show that your condition has become worse. Get help right away if you have these symptoms. This information is not intended to replace advice given to you by your health care provider. Make sure you discuss any questions you have with your health care provider. Document Released: 10/28/2008 Document Revised: 11/12/2018 Document Reviewed: 11/12/2018 [employer] Patient Education 2020 [employer] 10/23/2021 22:11:06 Pain Without a Known Cause Pain Without a Known Cause Pain can occur in any part of the body and can range from mild to severe. Sometimes no cause can befound for why you are having pain. Some types of pain that can occur without a known cause include: Headache. Back pain. Abdominal pain. Neck pain. Your health care provider will do tests to try to find the cause of your pain. If no cause is found, your health care provider may diagnose you with pain without a known cause. In some cases, your health care provider may repeat tests and look further for a possible cause. Follow these instructions at home: Managing pain, stiffness, and swelling Take tzxp-yjq-hcpszdu and prescription medicines only as told by your health care provider. Do not drive or use heavy machinery while taking prescription pain medicine. Stop any activities that cause pain. Rest during periods of severe pain. If directed, put ice on the painful area: ?Put ice in a plastic bag. ?Place a towel between your skin and the bag. ? Leave the ice on for 20 minutes, 2 3 times a day. If directed, apply heat to the affected area. Use the heat source that your health care provider recommends, such as a moist heat pack or a heating pad. ?Place a towel between your skin and the heat source. ?Leave the heat on for 20 30 minutes. ?Remove the heat if your skin turns bright red. This is especially important if you are unable to feel pain, heat, or cold. You may have a greater risk of getting burned. General instructions Reduce your stress with activities such as yoga or meditation. Talk with your health care provider about other ways to reduce stress. Exercise regularly. Ask your health care provider what activities are safe for you. Eat a balanced diet that includes fruits and vegetables, whole grains, lean meat, and low-fat dairy. Talk with your health care provider if you have any questions about your diet. If you are taking prescription pain medicine, take actions to prevent or treat constipation. Your health care provider may recommend that you: ? Drink enough fluid to keep your urine pale yellow. ?Eat foods that are high in fiber, such as fresh fruits and vegetables, whole grains, and beans. ?Limit foods that are high in fat and processed sugars, such as fried and sweet foods. ?Take an qwxj-rab-kpgfccq or prescription medicine for constipation. Contact a health care provider if you: Have pain, and no reason can be found for it. Do not get better, even after treatment. Get help right away if: Your pain is making you want to harm yourself. If you ever feel like you may hurt yourself or others, or have thoughts about taking your own life,get help right away. You can go to your nearest emergency department or call: Your local emergency services (911 in the [place] A suicide crisis helpline, such as the National Suicide Prevention Lifeline at . Thisis open 24 hours a day. Summary Pain can occur in any part of the body and can range from mild to severe. Your health care provider will do tests to try to find the cause of your pain. If no cause is found, your health care provider may diagnose you with pain without a known cause. To help your pain, take medicines as told by your health care provider, apply ice or heat, exercise, reduce stress, and eat a healthy diet. This information is not intended to replace advice given to you by your health care provider. Make sure you discuss any questions you have with your health care provider. Document Released: 02/04/2002 Document Revised: 07/08/2019 Document Reviewed: 06/01/2018 [employer] Patient Education 2020 [employer]. 10/23/2021 22:11:06 Urinary Tract Infection, Adult, Sojd-xn-Mlhc Urinary Tract Infection, Adult A urinary tract infection (UTI) is an infection of any part of the urinary tract. The urinary tractincludes: The kidneys. The ureters. The bladder. The urethra. These organs make, store, and get rid of pee (urine) in the body. What are the causes? This is caused by germs (bacteria) in your genital area. These germs grow and cause swelling (inflammation) of your urinary tract. What increases the risk? You are more likely to develop this condition if: You have a small, thin tube (catheter) to drain pee. You cannot control when you pee or poop (incontinence). You are female, and: ?You use these methods to prevent : ?A medicine that kills sperm (spermicide). ?A device that blocks sperm (diaphragm). ?You have low levels of a female hormone (estrogen). ?You are . You have genes that add to your risk. You are sexually active. You take antibiotic medicines. You have trouble peeing because of: ?A prostate that is bigger than normal, if you are male. ?A blockage in the part of your body that drains pee from the bladder (urethra). ?A kidney stone. ?A nerve condition that affects your bladder (neurogenic bladder). ?Not getting enough to drink. ?Not peeing often enough. You have other conditions, such as: ?Diabetes. ?A weak disease-fighting system (immune system). ?Sickle cell disease. ?Gout. ?Injury of the spine. What are the signs or symptoms? Symptoms of this condition include: Needing to pee right away (urgently). Peeing often. Peeing small amounts often. Pain or burning when peeing. Blood in the pee. Pee that smells bad or not like normal. Trouble peeing. Pee that is cloudy. Fluid coming from the vagina, if you are female. Pain in the belly or lower back. Other symptoms include: Throwing up (vomiting). No urge to eat. Feeling mixed up (confused). Being tired and grouchy (irritable). A fever. Watery poop (diarrhea). How is this treated? This condition may be treated with: Antibiotic medicine. Other medicines. Drinking enough water. Follow these instructions at home: Medicines Take evxh-qcz-ydbhypn and prescription medicines only as told by your doctor. If you were prescribed an antibiotic medicine, take it as told by your doctor. Do not stop taking it even if you start to feel better. General instructions Make sure you: ?Pee until your bladder is empty. ?Do not hold pee for a long time. ?Empty your bladder after sex. ?Wipe from front to back after pooping if you are a female. Use each tissue one time when you wipe. Drink enough fluid to keep your pee pale yellow. Keep all follow-up visits as told by your doctor. This is important. Contact a doctor if: You do not get better after 1 2 days. Your symptoms go away and then come back. Get help right away if: You have very bad back pain. You have very bad pain in your lower belly. You have a fever. You are sick to your stomach (nauseous). You are throwing up. Summary A urinary tract infection (UTI) is an infection of any part of the urinary tract. This condition is caused by germs in your genital area. There are many risk factors for a UTI. These include having a small, thin tube to drain pee and notbeing able to control when you pee or poop. Treatment includes antibiotic medicines for germs. Drink enough fluid to keep your pee pale yellow. This information is not intended to replace advice given to you by your health care provider. Make sure you discuss any questions you have with your health care provider. Document Released: 10/28/2008 Document Revised: 04/29/2019 Document Reviewed: 11/19/2018 [employer] Patient Education 2020 [employer]. Follow Up Care 10/23/2021 19:05:02 With:Tomas FARRELL Address: [address] [address] Business (1) When:10/26/2021 21:11:07 Comments:Follow-up with your primary care provider. If symptoms worsen, do not improve, new symptoms arise please report back to emergency room for further evaluation. [facility]05-31-2022 Evaluation + Plan noteExtracted from: Title:ED Note Author:Mati Taylor DO Date :10/23/21 Dehydration (E86.0: Dehydrat ion) Orders: acetaminophen, 650 mg = 2 tab(s), Tab, Oral, Once, Stop date 10/23/21 0:27:00 EDT, STAT, Start date 10/23/21 0:27:00 EDT, 10/23/21 0:27:00 EDT Sodium Chloride 0.9% intravenous solution, Soln-IV, Misc, Once, Stop date 10/23/21 0:49:43 EDT, Physician Stop, 10/23/21 0:49:43 EDT Sodium Chloride 0.9% intravenous solution, 1,000 mL, Soln-IV, IV, Once, Stop date 10/23/21 0:27:00 EDT, STAT, Start date 10/23/21 0:27:00 EDT, Infuse over 61, minute(s) Automated Diff Basic Metabolic Panel CBC w/ Auto Diff Creatine Kinase ED Cardiac Monitoring eGFR Magnesium Level Oxygen Saturation Oxygen Therapy PT & PTT Saline Lock Insert Troponin 0 Hr. Troponin 3 Hr. XR Chest Single View Future Scheduled Tests Laboratory* TIBC Calculated 08/06/21 * Basic Metabolic Panel 03/27/21 * Ferritin 08/06/21 * Folate Level 08/06/21 * Iron Level 08/06/21 * Lipase Level 08/06/21 * Vitamin B12 Level 08/06/21 Radiology* XR Foot 3+ Views Right 07/25/21 [facility]05-31-2022 Evaluation + Plan noteExtracted from: Title:ED Note Author:Rodrigue John PA-C te:10/23/21 Chest pain (R07.9: Chest richar n, unspecified) Urinary tract infection (N39.0: Urinary tract infection, site not specified) Orders: Automated Diff Basic Metabolic Panel CBC w/ Auto Diff ED Cardiac Monitoring eGFR Extra SST Tube Oxygen Saturation PT & PTT Saline Lock Insert Troponin 0 Hr. Troponin 3 Hr. Troponin 6 Hr. Troponin 9 Hr. UA With Cult Reflex Urine Culture XR Chest Single View Diagnostic Tests Pending * Urine Culture 10/23/21 Future Scheduled Tests Laboratory* TIBC Calculated 08/06/21 * Basic Metabolic Panel 03/27/21 * Ferritin 08/06/21 * Folate Level 08/06/21 * Iron Level 08/06/21 * Lipase Level 08/06/21 * Vitamin B12 Level 08/06/21 Radiology* XR Foot 3+ Views Right 07/25/21 [facility]05-31-2022 Hospital Discharge instructions Patient Education 10/23/2021 02:20:54 Dehydration, Adult, Appw-mm-Xwps Dehydration, Adult Dehydration is when there is not enough fluid or water in your body. This happens when you lose more fluids than you take in. Dehydration can range from mild to very bad. It should be treated right away to keep it from getting very bad. Symptoms of mild dehydration may include: Thirst. Dry lips. Slightly dry mouth. Dry, warm skin. Dizziness. Symptoms of moderate dehydration may include: Very dry mouth. Muscle cramps. Dark pee (urine). Pee may be the color of tea. Your body making less pee. Your eyes making fewer tears. Heartbeat that is uneven or faster than normal (palpitations). Headache. Light-headedness, especially when you stand up from sitting. Fainting (syncope). Symptoms of very bad dehydration may include: Changes in skin, such as: ?Cold and clammy skin. ?Blotchy (mottled) or pale skin. ?Skin that does not quickly return to normal after being lightly pinched and let go (poor skin turgor). Changes in body fluids, such as: ?Feeling very thirsty. ?Your eyes making fewer tears. ?Not sweating when body temperature is high, such as in hot weather. ?Your body making very little pee. Changes in vital signs, such as: ?Weak pulse. ?Pulse that is more than 100 beats a minute when you are sitting still. ?Fast breathing. ?Low blood pressure. Other changes, such as: ?Sunken eyes. ?Cold hands and feet. ?Confusion. ?Lack of energy (lethargy). ?Trouble waking up from sleep. ?Short-term weight loss. ?Unconsciousness. Follow these instructions at home: If told by your doctor, drink an ORS: ?Make an ORS by using instructions on the package. ?Start by drinking small amounts, about cup (120 mL) every 5 10 minutes. ?Slowly drink more until you have had the amount that your doctor said to have. Drink enough clear fluid to keep your pee clear or pale yellow. If you were told to drink an ORS, finish the ORS first, then start slowly drinking clear fluids. Drink fluids such as: ?Water. Do not drink only water by itself. Doing that can make the salt (sodium) level in your bodyget too low (hyponatremia). ?Ice chips. ?Fruit juice that you have added water to (diluted). ?Low-calorie sports drinks. Avoid: ?Alcohol. ?Drinks that have a lot of sugar. These include high-calorie sports drinks, fruit juice that does not have water added, and soda. ?Caffeine. ?Foods that are greasy or have a lot of fat or sugar. Take jftq-pww-lggssvi and prescription medicines only as told by your doctor. Do not take salt tablets. Doing that can make the salt level in your body get too high (hypernatremia). Eat foods that have minerals (electrolytes). Examples include bananas, oranges, potatoes, tomatoes,and spinach. Keep all follow-up visits as told by your doctor. This is important. Contact a doctor if: You have belly (abdominal) pain that: ?Gets worse. ?Stays in one area (localizes). You have a rash. You have a stiff neck. You get angry or annoyed more easily than normal (irritability). You are more sleepy than normal. You have a harder time waking up than normal. You feel: ?Weak. ?Dizzy. ?Very thirsty. You have peed (urinated) only a small amount of very dark pee during 6 8 hours. Get help right away if: You have symptoms of very bad dehydration. You cannot drink fluids without throwing up (vomiting). Your symptoms get worse with treatment. You have a fever. You have a very bad headache. You are throwing up or having watery poop (diarrhea) and it: ?Gets worse. ?Does not go away. You have blood or something green (bile) in your throw-up. You have blood in your poop (stool). This may cause poop to look black and tarry. You have not peed in 6 8 hours. You pass out (faint). Your heart rate when you are sitting still is more than 100 beats a minute. You have trouble breathing. This information is not intended to replace advice given to you by your health care provider. Make sure you discuss any questions you have with your health care provider. Document Released: 03/08/2010 Document Revised: 04/24/2018 Document Reviewed: 07/05/2016 [employer] Patient Education 2020 [employer]. Follow Up Care 10/22/2021 23:25:59 With:Tmoas FARRELL Address: [address] [place], [place] [id number] Business (1) When:10/26/2021 Comments:Please continue to drink plenty of fluids, follow-up with your primary care doctor next 2 to 3 daysfor further evaluation management. Please return to the ED for any new or worsening symptoms. [facility]05-29-2022 Miscellaneous Notes* Telephone Encounter - Anju Mina RN - 10/21/2021 5:33 PM EDT Reason for call: Patient still having frequency after being diagnosed with UTI and currently being treated with Macrobid. Outcome: Advised patient will take a couple more days for antibiotics to kick in an relieve frequency. Started to give home care instructions and patient stated that her son needs his phone back to watch a movie and line disconnected. Reason for Disposition [1] Taking antibiotic < 72 hours (3 days) for UTI AND [2] painful urination or frequency not improved Answer Assessment - Initial Assessment Questions 1. ANTIBIOTIC: nitrofurantoin (Macrobid) 100mg twice/day 2. DURATION: 10/20 morning 3. MAIN SYMPTOM: frequency, urgency 4. FEVER: 98.3F 5. OTHER SYMPTOMS: Denies Protocols used: URINARY TRACT INFECTION ON ANTIBIOTIC FOLLOW-UP CALL - [id number] [facility] + Plan note Extracted from: Title:ED Note Author:Chandan Adhikari DO Date:09/24 01/14 UTI (urinary tract infection ) (N39.0: Urinary tract infection, site not specified) Orders: nitrofurantoin, 100 mg = 1 cap(s), Oral, BID, X 7 day(s), # 14 cap(s), Refills(s) 0, Pharmacy: [facility]/pharmacy #[id number], 165, cm, 10/20/21 7:35:00 EDT, Height/Length Dosing, 63, kg, 10/20/21 7:35:00 EDT, Weight Dosing phenazopyridine, 200 mg = 1 tab(s), Oral, TID, Take one tab by mouth three times a day for three days, # 9 tab(s), Refills(s) 0, Pharmacy: [facility]/pharmacy #[id number], 165, cm, 10/20/21 7:35:00 EDT, Height/Length Dosing, 63, kg, 10/20/21 7:35:00 EDT, Weight Dosing Bladder Scan UA With Cult Reflex Urine Culture Diagnostic Tests Pending * Urine Culture 10/20/21 Future Scheduled Tests Laboratory* TIBC Calculated 08/06/21 * Basic Metabolic Panel 03/27/21 * Ferritin 08/06/21 * Folate Level 08/06/21 * Iron Level 08/06/21 * Lipase Level 08/06/21 * Vitamin B12 Level 08/06/21 Radiology* XR Foot 3+ Views Right 07/25/21 [facility]05-28-2022 Hospital Discharge instructions Patient Education 10/20/2021 08:29:37 Urinary Tract Infection, Adult Urinary Tract Infection, Adult A urinary tract infection (UTI) is an infection of any part of the urinary tract. The urinary tractincludes the kidneys, ureters, bladder, and urethra. These organs make, store, and get rid of urinein the body. Your health care provider may use other names to describe the infection. An upper UTI affects the ureters and kidneys (pyelonephritis). A lower UTI affects the bladder (cystitis) and urethra (urethritis). What are the causes? Most urinary tract infections are caused by bacteria in your genital area, around the entrance to your urinary tract (urethra). These bacteria grow and cause inflammation of your urinary tract. What increases the risk? You are more likely to develop this condition if: You have a urinary catheter that stays in place (indwelling). You are not able to control when you urinate or have a bowel movement (you have incontinence). You are female and you: ?Use a spermicide or diaphragm for control. ?Have low estrogen levels. ?Are . You have certain genes that increase your risk (genetics). You are sexually active. You take antibiotic medicines. You have a condition that causes your flow of urine to slow down, such as: ?An enlarged prostate, if you are male. ?Blockage in your urethra (stricture). ?A kidney stone. ?A nerve condition that affects your bladder control (neurogenic bladder). ?Not getting enough to drink, or not urinating often. You have certain medical conditions, such as: ?Diabetes. ?A weak disease-fighting system (immunesystem). ?Sickle cell disease. ?Gout. ?Spinal cord injury. What are the signs or symptoms? Symptoms of this condition include: Needing to urinate right away (urgently). Frequent urination or passing small amounts of urine frequently. Pain or burning with urination. Blood in the urine. Urine that smells bad or unusual. Trouble urinating. Cloudy urine. Vaginal discharge, if you are female. Pain in the abdomen or the lower back. You may also have: Vomiting or a decreased appetite. Confusion. Irritability or tiredness. A fever. Diarrhea. The first symptom in older adults may be confusion. In some cases, they may not have any symptoms until the infection has worsened. How is this diagnosed? This condition is diagnosed based on your medical history and a physical exam. You may also have other tests, including: Urine tests. Blood tests. Tests for sexually transmitted infections (STIs). If you have had more than one UTI, a cystoscopy or imaging studies may be done to determine the cause of the infections. How is this treated? Treatment for this condition includes: Antibiotic medicine. Bzfo-rpf-rjofdyo medicines to treat discomfort. Drinking enough water to stay hydrated. If you have frequent infections or have other conditions such as a kidney stone, you may need to see a health care provider who specializes in the urinary tract (urologist). In rare cases, urinary tract infections can cause sepsis. Sepsis is a life- threatening condition that occurs when the body responds to an infection. Sepsis is treated in the hospital with IV antibiotics, fluids, and other medicines. Follow these instructions at home: Medicines Take xvqy-zrl-gsksxkj and prescription medicines only as told by your health care provider. If you were prescribed an antibiotic medicine, take it as told by your health care provider. Do notstop using the antibiotic even if you start to feel better. General instructions Make sure you: ?Empty your bladder often and completely. Do not hold urine for long periods of time. ?Empty your bladder after sex. ?Wipe from front to back after a bowel movement if you are female. Use each tissue one time when you wipe. Drink enough fluid to keep your urine pale yellow. Keep all follow-up visits as told by your health care provider. This is important. Contact a health care provider if: Your symptoms do not get better after 1 2 days. Your symptoms go away and then return. Get help right away if you have: Severe pain in your back or your lower abdomen. A fever. Nausea or vomiting. Summary A urinary tract infection (UTI) is an infection of any part of the urinary tract, which includes the kidneys, ureters, bladder, and urethra. Most urinary tract infections are caused by bacteria in your genital area, around the entrance to your urinary tract (urethra). Treatment for this condition often includes antibiotic medicines. If you were prescribed an antibiotic medicine, take it as told by your health care provider. Do notstop using the antibiotic even if you start to feel better. Keep all follow-up visits as told by your health care provider. This is important. This information is not intended to replace advice given to you by your health care provider. Make sure you discuss any questions you have with your health care provider. Document Released: 02/19/2006 Document Revised: 04/29/2019 Document Reviewed: 11/19/2018 [employer] Patient Education 2020 [employer] Follow Up Care 10/20/2021 07:19:50 With:Your Urologist Address:Unknown When:10/23/2021 08:09:49 With:Tomas FARRELL Address: [address] [place] [address]- Business (1) When:Within 3 Day(s) [facility]05-22-2022 Hospital Discharge instructions Patient Education 10/14/2021 11:46:23 Acute Urinary Retention, Female, Cwxz-fo-Tmfn Acute Urinary Retention, Female Acute urinary retention means that you cannot pee (urinate) at all, or that you pee too little and your bladder is not emptied completely. If it is not treated, it can lead to kidney damage or other serious problems. Follow these instructions at home: Take gxar-csf-mfrfdiv and prescription medicines only as told by your doctor. Ask your doctor what medicines you should stay away from. Do not take any medicine unless your doctor says it is okay to do so. If you were sent home with a tube that drains pee from the bladder (catheter), take care of it as told by your doctor. Drink enough fluid to keep your pee clear or pale yellow. If you were given an antibiotic, take it as told by your doctor. Do not stop taking the antibiotic even if you start to feel better. Do not use any products that contain nicotine or tobacco, such as cigarettes and e-cigarettes. If you need help quitting, ask your doctor. Watch for changes in your symptoms. Tell your doctor about them. If told, keep track of any changes in your blood pressure at home. Tell your doctor about them. Keep all follow-up visits as told by your doctor. This is important. Contact a doctor if: You have spasms or you leak pee when you have spasms. Get help right away if: You have chills or a fever. You have blood in your pee. You have a tube that drains the bladder and: ?The tube stops draining pee. ?The tube falls out. Summary Acute urinary retention means that you cannot pee at all, or that you pee too little and your bladder is not emptied completely. If it is not treated, it can result in kidney damage or other serious problems. If you were sent home with a tube that drains pee from the bladder, take care of it as told by yourdoctor. Pay attention to any changes in your symptoms. Tell your doctor about them. This information is not intended to replace advice given to you by your health care provider. Make sure you discuss any questions you have with your health care provider. Document Released: 10/28/2008 Document Revised: 04/24/2018 Document Reviewed: 06/13/2017 [employer] Patient Education 2020 [employer]. Follow Up Care 10/14/2021 10:24:31 With:Tomas FARRELL Address: [address] [place] [phone]- Business (1) When:10/17/2021 11:31:26 Comments:Follow-up with your primary care provider in 3 days. If symptoms worsen, do not improve, or new symptoms arise please report back to emergency department immediately. [facility]05-20-2022 Hospital Discharge instructions Patient Education 10/12/2021 21:17:35 Health Maintenance, Female Health Maintenance, Female Adopting a healthy lifestyle and getting preventive care are important in promoting health and wellness. Ask your health care provider about: The right schedule for you to have regular tests and exams. Things you can do on your own to prevent diseases and keep yourself healthy. What should I know about diet, weight, and exercise? Eat a healthy diet Eat a diet that includes plenty of vegetables, fruits, low-fat dairy products, and lean protein. Do not eat a lot of foods that are high in solid fats, added sugars, or sodium. Maintain a healthy weight Body mass index (BMI) is used to identify weight problems. It estimates body fat based on height and weight. Your health care provider can help determine your BMI and help you achieve or maintain a healthy weight. Get regular exercise Get regular exercise. This is one of the most important things you can do for your health. Most adults should: Exercise for at least 150 minutes each week. The exercise should increase your heart rate and make you sweat (moderate-intensity exercise). Do strengthening exercises at least twice a week. This is in addition to the moderate-intensity exercise. Spend less time sitting. Even light physical activity can be beneficial. Watch cholesterol and blood lipids Have your blood tested for lipids and cholesterol at 20 years of age, then have this test every 5 years. Have your cholesterol levels checked more often if: Your lipid or cholesterol levels are high. You are older than 40 years of age. You are at high risk for heart disease. What should I know about cancer screening? Depending on your health history and family history, you may need to have cancer screening at various ages. This may include screening for: Breast cancer. Cervical cancer. Colorectal cancer. Skin cancer. Lung cancer. What should I know about heart disease, diabetes, and high blood pressure? Blood pressure and heart disease High blood pressure causes heart disease and increases the risk of stroke. This is more likely to develop in people who have high blood pressure readings, are of descent, or are overweight. Have your blood pressure checked: ?Every 3 5 years if you are 18 39 years of age. ?Every year if you are 40 years old or older. Diabetes Have regular diabetes screenings. This checks your fasting blood sugar level. Have the screening done: Once every three years after age 40 if you are at a normal weight and have a low risk for diabetes. More often and at a younger age if you are overweight or have a high risk for diabetes. What should I know about preventing infection? Hepatitis B If you have a higher risk for hepatitis B, you should be screened for this virus. Talk with your health care provider to find out if you are at risk for hepatitis B infection. Hepatitis C Testing is recommended for: Everyone born from 1945 through 1965. Anyone with known risk factors for hepatitis C. Sexually transmitted infections (STIs) Get screened for STIs, including gonorrhea and chlamydia, if: ?You are sexually active and are younger than 24 years of age. ?You are older than 24 years of age and your health care provider tells you that you are at risk for this type of infection. ?Your sexual activity has changed since you were last screened, and you are at increased risk for chlamydia or gonorrhea. Ask your health care provider if you are at risk. Ask your health care provider about whether you are at high risk for HIV. Your health care providermay recommend a prescription medicine to help prevent HIV infection. If you choose to take medicineto prevent HIV, you should first get tested for HIV. You should then be tested every 3 months for as long as you are taking the medicine. If you are about to stop having your period (premenopausal) and you may become , seek counseling before you get . Take 400 to 800 micrograms (mcg) of folic acid every day if you become . Ask for control (contraception) if you want to prevent . Osteoporosis and menopause Osteoporosis is a disease in which the bones lose minerals and strength with aging. This can resultin bone fractures. If you are 65 years old or older, or if you are at risk for osteoporosis and fractures, ask your health care provider if you should: Be screened for bone loss. Take a calcium or vitamin D supplement to lower your risk of fractures. Be given hormone replacement therapy (HRT) to treat symptoms of menopause. Follow these instructions at home: Lifestyle Do not use any products that contain nicotine or tobacco, such as cigarettes, e- cigarettes, and chewing tobacco. If you need help quitting, ask your health care provider. Do not use street drugs. Do not share needles. Ask your health care provider for help if you need support or information about quitting drugs. Alcohol use Do not drink alcohol if: ?Your health care provider tells you not to drink. ?You are , may be , or are planning to become . If you drink alcohol: ?Limit how much you use to 0 1 drink a day. ?Limit intake if you are . Be aware of how much alcohol is in your drink. In the [place] one drink equals one 12 oz bottle of beer (355 mL), one 5 oz glass of wine (148 mL), or one 1 oz glass of hard liquor (44 mL). General instructions Schedule regular health, dental, and eye exams. Stay current with your vaccines. Tell your health care provider if: ?You often feel depressed. ?You have ever been abused or do not feel safe at home. Summary Adopting a healthy lifestyle and getting preventive care are important in promoting health and wellness. Follow your health care provider's instructions about healthy diet, exercising, and getting tested or screened for diseases. Follow your health care provider's instructions on monitoring your cholesterol and blood pressure. This information is not intended to replace advice given to you by your health care provider. Make sure you discuss any questions you have with your health care provider. Document Released: 11/25/2011 Document Revised: 05/05/2019 Document Reviewed: 05/05/2019 [employer] Patient Education 2020 [employer]. Follow Up Care 10/12/2021 20:40:40 With:GISELA RAMOS, Tomas Chakraborty, URL Address: [address] [address]- When:2 to 4 days With:JOSE GO Tomas Guerrier [facility] Address: [address] [place] [address]- When:10/15/2021 [facility]05-16-2022 Evaluation + Plan note Diagnostic Tests Pending * Urine Culture 10/08/21 Future Scheduled Tests Laboratory* TIBC Calculated 08/06/21 * Basic Metabolic Panel 03/27/21 * Ferritin 08/06/21 * Folate Level 08/06/21 * Iron Level 08/06/21 * Lipase Level 08/06/21 * Vitamin B12 Level 08/06/21 Radiology* XR Foot 3+ Views Right 07/25/21 [facility]-12[facility]2022 Hospital Discharge instructions Patient Education 10/04/2021 00:51:33 Indwelling Urinary Catheter Care, Adult Indwelling Urinary Catheter Care, Adult An indwelling urinary catheter is a thin, flexible, germ-free (sterile) tube that is placed into the bladder to help drain urine out of the body. The catheter is inserted into the part of the body that drains urine from the bladder (urethra). Urine drains from the catheter into a drainage bag outside of the body. Taking good care of your catheter will keep it working properly and help to prevent problems from developing. What are the risks? Bacteria may get into your bladder and cause a urinary tract infection. Urine flow can become blocked. This can happen if the catheter is not working correctly, or if you have sediment or a blood clot in your bladder or the catheter. Tissue near the catheter may become irritated and bleed. How to wear your catheter and your drainage bag Supplies needed Adhesive tape or a leg strap. Alcohol wipe or soap and water (if you use tape). A clean towel (if you use tape). Overnight drainage bag. Smaller drainage bag (leg bag). Wearing your catheter and bag Use adhesive tape or a leg strap to attach your catheter to your leg. Make sure the catheter is not pulled tight. If a leg strap gets wet, replace it with a dry one. If you use adhesive tape: 1.Use an alcohol wipe or soap and water to wash off any stickiness on your skin where you had tape before. 2.Use a clean towel to pat-dry the area. 3.Apply the new tape. You should have received a large overnight drainage bag and a smaller leg bag that fits underneath clothing. You may wear the overnight bag at any time, but you should not wear the leg bag at night. Always wear the leg bag below your knee. Make sure the overnight drainage bag is always lower than the level of your bladder, but do not letit touch the floor. Before you go to sleep, hang the bag inside a wastebasket that is covered by a clean plastic bag. How to care for your skin around the catheter Supplies needed A clean washcloth. Water and mild soap. A clean towel. Caring for your skin and catheter Every day, use a clean washcloth and soapy water to clean the skin around your catheter. 1.Wash your hands with soap and water. 2.Wet a washcloth in warm water and mild soap. 3.Clean the skin around your urethra. ?If you are female: ?Use one hand to gently spread the folds of skin around your vagina (labia). ?With the washcloth in your other hand, wipe the inner side of your labia on each side. Do this in a vtqty-gg-thez direction. ?If you are male: ?Use one hand to pull back any skin that covers the end of your penis (foreskin). ?With the washcloth in your other hand, wipe your penis in small circles. Start wiping at the tip of your penis, then move outward from the catheter. ?Move the foreskin back in place, if this applies. 4.With your free hand, hold the catheter close to where it enters your body. Keep holding the catheter during cleaning so it does not get pulled out. 5.Use your other hand to clean the catheter with the washcloth. ?Only wipe downward on the catheter. ?Do not wipe upward toward your body, because that may push bacteria into your urethra and cause infection. 6.Use a clean towel to pat-dry the catheter and the skin around it. Make sure to wipe off all soap. 7.Wash your hands with soap and water. Shower every day. Do not take baths. Do not use cream, ointment, or lotion on the area where the catheter enters your body, unless your health care provider tells you to do that. Do not use powders, sprays, or lotions on your genital area. Check your skin around the catheter every day for signs of infection. Check for: ?Redness, swelling, or pain. ?Fluid or blood. ?Warmth. ?Pus or a bad smell. How to empty the drainage bag Supplies needed Rubbing alcohol. Gauze pad or cotton ball. Adhesive tape or a leg strap. Emptying the bag Empty your drainage bag (your overnight drainage bag or your leg bag) when it is ? full, or at least 2 3 times a day. Clean the drainage bag according to the ship washer's instructions or as told byyour health care provider. 1.Wash your hands with soap and water. 2.Detach the drainage bag from your leg. 3.Hold the drainage bag over the toilet or a clean container. Make sure the drainage bag is lower than your hips and bladder. This stops urine from going back into the tubing and into your bladder. 4.Open the pour spout at the bottom of the bag. 5.Empty the urine into the toilet or container. Do not let the pour spout touch any surface. This precaution is important to prevent bacteria from getting in the bag and causing infection. 6.Apply rubbing alcohol to a gauze pad or cotton ball. 7.Use the gauze pad or cotton ball to clean the pour spout. 8.Close the pour spout. 9.Attach the bag to your leg with adhesive tape or a leg strap. 10.Wash your hands with soap and water. How to change the drainage bag Supplies needed: Alcohol wipes. A clean drainage bag. Adhesive tape or a leg strap. Changing the bag Replace your drainage bag with a clean bag if it leaks, starts to smell bad, or looks dirty. 1.Wash your hands with soap and water. 2.Detach the dirty drainage bag from your leg. 3.Pinch the catheter with your fingers so that urine does not spill out. 4.Disconnect the catheter tube from the drainage tube at the connection valve. Do not let the tubestouch any surface. 5.Clean the end of the catheter tube with an alcohol wipe. Use a different alcohol wipe to clean the end of the drainage tube. 6.Connect the catheter tube to the drainage tube of the clean bag. 7.Attach the clean bag to your leg with adhesive tape or a leg strap. Avoid attaching the new bag too tightly. 8.Wash your hands with soap and water. General instructions Never pull on your catheter or try to remove it. Pulling can damage your internal tissues. Always wash your hands before and after you handle your catheter or drainage bag. Use a mild, fragrance-free soap. If soap and water are not available, use hand manager of internal audit. Always make sure there are no twists or bends (kinks) in the catheter tube. Always make sure there are no leaks in the catheter or drainage bag. Drink enough fluid to keep your urine pale yellow. Do not take baths, swim, or use a hot tub. If you are female, wipe from front to back after having a bowel movement. Contact a health care provider if: Your urine is cloudy. Your urine smells unusually bad. Your catheter gets clogged. Your catheter starts to leak. Your bladder feels full. Get help right away if: You have redness, swelling, or pain where the catheter enters your body. You have fluid, blood, pus, or a bad smell coming from the area where the catheter enters your body. The area where the catheter enters your body feels warm to the touch. You have a fever. You have pain in your abdomen, legs, lower back, or bladder. You see blood in the catheter. Your urine is pink or red. You have nausea, vomiting, or chills. Your urine is not draining into the bag. Your catheter gets pulled out. Summary An indwelling urinary catheter is a thin, flexible, germ-free (sterile) tube that is placed into the bladder to help drain urine out of the body. The catheter is inserted into the part of the body that drains urine from the bladder (urethra). Take good care of your catheter to keep it working properly and help prevent problems from developing. Always wash your hands before and after you handle your catheter or drainage bag. Never pull on your catheter or try to remove it. This information is not intended to replace advice given to you by your health care provider. Make sure you discuss any questions you have with your health care provider. Document Released: 05/12/2006 Document Revised: 09/03/2019 Document Reviewed: 12/26/2017 [employer] Patient Education 2020 [employer]. 10/04/2021 00:51:33 Acute Urinary Retention, Female, Kuyt-dk-Pmgy Acute Urinary Retention, Female Acute urinary retention means that you cannot pee (urinate) at all, or that you pee too little and your bladder is not emptied completely. If it is not treated, it can lead to kidney damage or other serious problems. Follow these instructions at home: Take lglq-yhx-zfjhljv and prescription medicines only as told by your doctor. Ask your doctor what medicines you should stay away from. Do not take any medicine unless your doctor says it is okay to do so. If you were sent home with a tube that drains pee from the bladder (catheter), take care of it as told by your doctor. Drink enough fluid to keep your pee clear or pale yellow. If you were given an antibiotic, take it as told by your doctor. Do not stop taking the antibiotic even if you start to feel better. Do not use any products that contain nicotine or tobacco, such as cigarettes and e-cigarettes. If you need help quitting, ask your doctor. Watch for changes in your symptoms. Tell your doctor about them. If told, keep track of any changes in your blood pressure at home. Tell your doctor about them. Keep all follow-up visits as told by your doctor. This is important. Contact a doctor if: You have spasms or you leak pee when you have spasms. Get help right away if: You have chills or a fever. You have blood in your pee. You have a tube that drains the bladder and: ?The tube stops draining pee. ?The tube falls out. Summary Acute urinary retention means that you cannot pee at all, or that you pee too little and your bladder is not emptied completely. If it is not treated, it can result in kidney damage or other serious problems. If you were sent home with a tube that drains pee from the bladder, take care of it as told by yourdoctor. Pay attention to any changes in your symptoms. Tell your doctor about them. This information is not intended to replace advice given to you by your health care provider. Make sure you discuss any questions you have with your health care provider. Document Released: 10/28/2008 Document Revised: 04/24/2018 Document Reviewed: 06/13/2017 [employer] Patient Education 2020 [employer] Follow Up Care 10/03/2021 21:50:18 With:Tomas JOSE Address: [address] [place], [place] [id number] Business (1) When:10/06/2021 Comments:Please follow-up with your urologist for further evaluation and management. [facility]05-11-2022 Evaluation + Plan noteExtracted from: Title:ED Note Author:Mati Taylor DO Date :10/03/21 Urinary retention (R33.9: Re tention of urine, unspecified) Orders: Urinary Catheter Insertion Future Scheduled Tests Laboratory* TIBC Calculated 08/06/21 * Basic Metabolic Panel 03/27/21 * Ferritin 08/06/21 * Folate Level 08/06/21 * Iron Level 08/06/21 * Lipase Level 08/06/21 * Vitamin B12 Level 08/06/21 Radiology* XR Foot 3+ Views Right 07/25/21 [facility]05-09-2022 Hospital Discharge instructions Patient Education 10/01/2021 19:38:21 Health Maintenance, Female Health Maintenance, Female Adopting a healthy lifestyle and getting preventive care are important in promoting health and wellness. Ask your health care provider about: The right schedule for you to have regular tests and exams. Things you can do on your own to prevent diseases and keep yourself healthy. What should I know about diet, weight, and exercise? Eat a healthy diet Eat a diet that includes plenty of vegetables, fruits, low-fat dairy products, and lean protein. Do not eat a lot of foods that are high in solid fats, added sugars, or sodium. Maintain a healthy weight Body mass index (BMI) is used to identify weight problems. It estimates body fat based on height and weight. Your health care provider can help determine your BMI and help you achieve or maintain a healthy weight. Get regular exercise Get regular exercise. This is one of the most important things you can do for your health. Most adults should: Exercise for at least 150 minutes each week. The exercise should increase your heart rate and make you sweat (moderate-intensity exercise). Do strengthening exercises at least twice a week. This is in addition to the moderate-intensity exercise. Spend less time sitting. Even light physical activity can be beneficial. Watch cholesterol and blood lipids Have your blood tested for lipids and cholesterol at 20 years of age, then have this test every 5 years. Have your cholesterol levels checked more often if: Your lipid or cholesterol levels are high. You are older than 40 years of age. You are at high risk for heart disease. What should I know about cancer screening? Depending on your health history and family history, you may need to have cancer screening at various ages. This may include screening for: Breast cancer. Cervical cancer. Colorectal cancer. Skin cancer. Lung cancer. What should I know about heart disease, diabetes, and high blood pressure? Blood pressure and heart disease High blood pressure causes heart disease and increases the risk of stroke. This is more likely to develop in people who have high blood pressure readings, are of descent, or are overweight. Have your blood pressure checked: ?Every 3 5 years if you are 18 39 years of age. ?Every year if you are 40 years old or older. Diabetes Have regular diabetes screenings. This checks your fasting blood sugar level. Have the screening done: Once every three years after age 40 if you are at a normal weight and have a low risk for diabetes. More often and at a younger age if you are overweight or have a high risk for diabetes. What should I know about preventing infection? Hepatitis B If you have a higher risk for hepatitis B, you should be screened for this virus. Talk with your health care provider to find out if you are at risk for hepatitis B infection. Hepatitis C Testing is recommended for: Everyone born from 1945 through 1965. Anyone with known risk factors for hepatitis C. Sexually transmitted infections (STIs) Get screened for STIs, including gonorrhea and chlamydia, if: ?You are sexually active and are younger than 24 years of age. ?You are older than 24 years of age and your health care provider tells you that you are at risk for this type of infection. ?Your sexual activity has changed since you were last screened, and you are at increased risk for chlamydia or gonorrhea. Ask your health care provider if you are at risk. Ask your health care provider about whether you are at high risk for HIV. Your health care providermay recommend a prescription medicine to help prevent HIV infection. If you choose to take medicineto prevent HIV, you should first get tested for HIV. You should then be tested every 3 months for as long as you are taking the medicine. If you are about to stop having your period (premenopausal) and you may become , seek counseling before you get . Take 400 to 800 micrograms (mcg) of folic acid every day if you become . Ask for control (contraception) if you want to prevent . Osteoporosis and menopause Osteoporosis is a disease in which the bones lose minerals and strength with aging. This can resultin bone fractures. If you are 65 years old or older, or if you are at risk for osteoporosis and fractures, ask your health care provider if you should: Be screened for bone loss. Take a calcium or vitamin D supplement to lower your risk of fractures. Be given hormone replacement therapy (HRT) to treat symptoms of menopause. Follow these instructions at home: Lifestyle Do not use any products that contain nicotine or tobacco, such as cigarettes, e- cigarettes, and chewing tobacco. If you need help quitting, ask your health care provider. Do not use street drugs. Do not share needles. Ask your health care provider for help if you need support or information about quitting drugs. Alcohol use Do not drink alcohol if: ?Your health care provider tells you not to drink. ?You are , may be , or are planning to become . If you drink alcohol: ?Limit how much you use to 0 1 drink a day. ?Limit intake if you are . Be aware of how much alcohol is in your drink. In the [place] one drink equals one 12 oz bottle of beer (355 mL), one 5 oz glass of wine (148 mL), or one 1 oz glass of hard liquor (44 mL). General instructions Schedule regular health, dental, and eye exams. Stay current with your vaccines. Tell your health care provider if: ?You often feel depressed. ?You have ever been abused or do not feel safe at home. Summary Adopting a healthy lifestyle and getting preventive care are important in promoting health and wellness. Follow your health care provider's instructions about healthy diet, exercising, and getting tested or screened for diseases. Follow your health care provider's instructions on monitoring your cholesterol and blood pressure. This information is not intended to replace advice given to you by your health care provider. Make sure you discuss any questions you have with your health care provider. Document Released: 11/25/2011 Document Revised: 05/05/2019 Document Reviewed: 05/05/2019 [employer] Patient Education 2020 [employer]. Follow Up Care 10/01/2021 18:06:52 With:GISELA RAMOS, Tomas Chakraborty, URL Address: [address] [place] [id number]- When:2 to 4 days [facility]05-09-2022 Hospital Discharge instructions Patient Education 09/30/2021 22:10:24 Acute Urinary Retention, Female, Mzyr-eg-Ared Acute Urinary Retention, Female Acute urinary retention means that you cannot pee (urinate) at all, or that you pee too little and your bladder is not emptied completely. If it is not treated, it can lead to kidney damage or other serious problems. Follow these instructions at home: Take afcw-mbl-uoekyss and prescription medicines only as told by your doctor. Ask your doctor what medicines you should stay away from. Do not take any medicine unless your doctor says it is okay to do so. If you were sent home with a tube that drains pee from the bladder (catheter), take care of it as told by your doctor. Drink enough fluid to keep your pee clear or pale yellow. If you were given an antibiotic, take it as told by your doctor. Do not stop taking the antibiotic even if you start to feel better. Do not use any products that contain nicotine or tobacco, such as cigarettes and e-cigarettes. If you need help quitting, ask your doctor. Watch for changes in your symptoms. Tell your doctor about them. If told, keep track of any changes in your blood pressure at home. Tell your doctor about them. Keep all follow-up visits as told by your doctor. This is important. Contact a doctor if: You have spasms or you leak pee when you have spasms. Get help right away if: You have chills or a fever. You have blood in your pee. You have a tube that drains the bladder and: ?The tube stops draining pee. ?The tube falls out. Summary Acute urinary retention means that you cannot pee at all, or that you pee too little and your bladder is not emptied completely. If it is not treated, it can result in kidney damage or other serious problems. If you were sent home with a tube that drains pee from the bladder, take care of it as told by yourdoctor. Pay attention to any changes in your symptoms. Tell your doctor about them. This information is not intended to replace advice given to you by your health care provider. Make sure you discuss any questions you have with your health care provider. Document Released: 10/28/2008 Document Revised: 04/24/2018 Document Reviewed: 06/13/2017 [employer] Patient Education 2020 [employer]. Follow Up Care 09/30/2021 21:04:21 With:GISELA RAMOS, Tomas Chakraborty, URL Address: [address] [place], [place] [id number]- When:2 to 4 days Comments:Keep scheduled appointment [facility]05-04-2022 Evaluation + Plan note Diagnostic Tests Pending * Urine Culture 09/26/21 Future Scheduled Tests Laboratory* TIBC Calculated 08/06/21 * Basic Metabolic Panel 03/27/21 * Ferritin 08/06/21 * Folate Level 08/06/21 * Iron Level 08/06/21 * Lipase Level 08/06/21 * Vitamin B12 Level 08/06/21 Radiology* XR Foot 3+ Views Right 07/25/21 [facility]04-25-2022 Evaluation + Plan note Diagnostic Tests Pending * Urine Culture 09/17/21 Future Scheduled Tests Laboratory* TIBC Calculated 08/06/21 * Basic Metabolic Panel 03/27/21 * Ferritin 08/06/21 * Folate Level 08/06/21 * Iron Level 08/06/21 * Lipase Level 08/06/21 * Vitamin B12 Level 08/06/21 Radiology* XR Foot 3+ Views Right 07/25/21 [facility]04-25-2022 Hospital Discharge instructions Patient Education 09/17/2021 11:46:36 Acute Urinary Retention, Female, Ppuv-jm-Hste Acute Urinary Retention, Female Acute urinary retention means that you cannot pee (urinate) at all, or that you pee too little and your bladder is not emptied completely. If it is not treated, it can lead to kidney damage or other serious problems. Follow these instructions at home: Take gfwn-lya-rhvbqtr and prescription medicines only as told by your doctor. Ask your doctor what medicines you should stay away from. Do not take any medicine unless your doctor says it is okay to do so. If you were sent home with a tube that drains pee from the bladder (catheter), take care of it as told by your doctor. Drink enough fluid to keep your pee clear or pale yellow. If you were given an antibiotic, take it as told by your doctor. Do not stop taking the antibiotic even if you start to feel better. Do not use any products that contain nicotine or tobacco, such as cigarettes and e-cigarettes. If you need help quitting, ask your doctor. Watch for changes in your symptoms. Tell your doctor about them. If told, keep track of any changes in your blood pressure at home. Tell your doctor about them. Keep all follow-up visits as told by your doctor. This is important. Contact a doctor if: You have spasms or you leak pee when you have spasms. Get help right away if: You have chills or a fever. You have blood in your pee. You have a tube that drains the bladder and: ?The tube stops draining pee. ?The tube falls out. Summary Acute urinary retention means that you cannot pee at all, or that you pee too little and your bladder is not emptied completely. If it is not treated, it can result in kidney damage or other serious problems. If you were sent home with a tube that drains pee from the bladder, take care of it as told by yourdoctor. Pay attention to any changes in your symptoms. Tell your doctor about them. This information is not intended to replace advice given to you by your health care provider. Make sure you discuss any questions you have with your health care provider. Document Released: 10/28/2008 Document Revised: 04/24/2018 Document Reviewed: 06/13/2017 [employer] Patient Education 2020 [employer]. Follow Up Care 09/17/2021 09:28:28 With:Rukhsana Mcarthur Address: [address] [phone] Business (1) When:09/20/2021 10:18:24 [facility]04-21-2022 Hospital Discharge instructions Patient Education 09/13/2021 11:28:01 Urinary Tract Infection, Adult, Stkv-yv-Ijxk Urinary Tract Infection, Adult A urinary tract infection (UTI) is an infection of any part of the urinary tract. The urinary tractincludes: The kidneys. The ureters. The bladder. The urethra. These organs make, store, and get rid of pee (urine) in the body. What are the causes? This is caused by germs (bacteria) in your genital area. These germs grow and cause swelling (inflammation) of your urinary tract. What increases the risk? You are more likely to develop this condition if: You have a small, thin tube (catheter) to drain pee. You cannot control when you pee or poop (incontinence). You are female, and: ?You use these methods to prevent : ?A medicine that kills sperm (spermicide). ?A device that blocks sperm (diaphragm). ?You have low levels of a female hormone (estrogen). ?You are . You have genes that add to your risk. You are sexually active. You take antibiotic medicines. You have trouble peeing because of: ?A prostate that is bigger than normal, if you are male. ?A blockage in the part of your body that drains pee from the bladder (urethra). ?A kidney stone. ?A nerve condition that affects your bladder (neurogenic bladder). ?Not getting enough to drink. ?Not peeing often enough. You have other conditions, such as: ?Diabetes. ?A weak disease-fighting system (immune system). ?Sickle cell disease. ?Gout. ?Injury of the spine. What are the signs or symptoms? Symptoms of this condition include: Needing to pee right away (urgently). Peeing often. Peeing small amounts often. Pain or burning when peeing. Blood in the pee. Pee that smells bad or not like normal. Trouble peeing. Pee that is cloudy. Fluid coming from the vagina, if you are female. Pain in the belly or lower back. Other symptoms include: Throwing up (vomiting). No urge to eat. Feeling mixed up (confused). Being tired and grouchy (irritable). A fever. Watery poop (diarrhea). How is this treated? This condition may be treated with: Antibiotic medicine. Other medicines. Drinking enough water. Follow these instructions at home: Medicines Take jjkz-wsh-sfnewyl and prescription medicines only as told by your doctor. If you were prescribed an antibiotic medicine, take it as told by your doctor. Do not stop taking it even if you start to feel better. General instructions Make sure you: ?Pee until your bladder is empty. ?Do not hold pee for a long time. ?Empty your bladder after sex. ?Wipe from front to back after pooping if you are a female. Use each tissue one time when you wipe. Drink enough fluid to keep your pee pale yellow. Keep all follow-up visits as told by your doctor. This is important. Contact a doctor if: You do not get better after 1 2 days. Your symptoms go away and then come back. Get help right away if: You have very bad back pain. You have very bad pain in your lower belly. You have a fever. You are sick to your stomach (nauseous). You are throwing up. Summary A urinary tract infection (UTI) is an infection of any part of the urinary tract. This condition is caused by germs in your genital area. There are many risk factors for a UTI. These include having a small, thin tube to drain pee and notbeing able to control when you pee or poop. Treatment includes antibiotic medicines for germs. Drink enough fluid to keep your pee pale yellow. This information is not intended to replace advice given to you by your health care provider. Make sure you discuss any questions you have with your health care provider. Document Released: 10/28/2008 Document Revised: 04/29/2019 Document Reviewed: 11/19/2018 [employer] Patient Education 2020 [employer]. 09/13/2021 11:27:34 Antibiotic Medicine, Adult Antibiotic Medicine, Adult Antibiotic medicines are used to treat infections caused by bacteria, such as strep throat and urinary tract infection (UTI). Antibiotic medicines will not work for viral illnesses, such as colds or the flu (influenza). They work by killing the bacteria that is making you sick. Antibiotics can alsohave serious side effects. It is important that you take antibiotic medicines safely and only when needed. When do I need to take antibiotics? Antibiotics are medicines that treat bacterial infections. You may need antibiotics for: UTI. Strep throat. Meningitis. This infection affects the spinal cord and brain. Bacterial sinusitis. Serious lung infection. You may start antibiotics while your health care provider waits for test results to come back. Common tests may include throat, urine, blood, or mucus culture. Your health care provider may change orstop the antibiotic depending on your test results. When are antibiotics not needed? You do not need antibiotics for most common illnesses. These illnesses may be caused by a virus, not a bacteria. You do not need antibiotics for: The common cold. Influenza. Sore throat. Discolored mucus. Bronchitis. Antibiotics are not always needed for all bacterial infections. Many of these infections clear up without antibiotic treatment. Do not ask for or take antibiotics when they are not necessary. How long should I take the antibiotic? You must take the entire prescription. Continue to take your antibiotic for as long as told by yourhealth care provider. Do not stop taking it even if you start to feel better. If you stop taking ittoo soon: You may start to feel sick again. Your infection may become harder to treat. Complications may develop. Each course of antibiotics needs a different amount of time to work. Some antibiotic courses last only a few days. Some last about a week to 10 days. In some cases, you may need to take antibiotics for a few weeks to completely treat the infection. What if I miss a dose? Try not to miss any doses of medicine. If you miss a dose, call your health care provider or pharmacist for advice. Sometimes it is okay to take the missed dose as soon as possible. What are the risks of taking antibiotics? Most antibiotics can cause an infection called Clostridioides difficile (C. difficile or C. diff), which causes severe diarrhea. This infection happens when the antibiotics kill the healthy bacteria in your intestines. This allows C. diff to grow. The infection needs to be treated right away. Let your health care provider know if: You have diarrhea while taking an antibiotic. You have diarrhea after you stop taking an antibiotic. C. diff infection can start weeks after stopping the antibiotic. Taking an antibiotic also puts you at risk for getting a bacteria that does not respond to medicine(antibiotic-resistant infection) in the future. Antibiotics can cause bacteria to change so that ifthe antibiotic is taken again, the medicine is not able to kill the bacteria. These infections can be more serious and, in some cases, life-threatening. Do antibiotics affect control? control pills may not work while you are on antibiotics. If you are taking control pills, continue taking them as usual and use a second form of control, such as a condom, to avoid unwanted . Continue using the second form of control until your health care provider says you can stop. What else should I know about taking antibiotics? It is important for you to take antibiotics exactly as told. Make sure that you: Take the entire course of antibiotic that was prescribed. Do not stop taking your antibiotics even if your symptoms improve. Take the correct amount of medicine each day. Ask your health care provider: ?How long to wait in between doses. ?If the antibiotic should be taken with food. ?If there are any foods, drinks, or medicines that you should avoid while taking the antibiotics. ?If there are any side effects you should be aware of. Only use the antibiotics prescribed for you by your health care provider. Do not use antibiotics prescribed for someone else. Drink a large glass of water along with the antibiotics. Ask the pharmacist for a syringe, cup, or spoon that properly measures the antibiotics. Throw away any leftover medicine. Contact a health care provider if: Your symptoms get worse. You have new joint pain or muscle aches that begin after starting the antibiotic. When should I seek immediate medical care? You have signs of a serious allergic reaction to antibiotics. If you have signs of a severe allergic reaction, stop taking the antibiotic right away. Signs may include: ?Hives, which are raised, itchy, red bumps on the skin. ?Skin rash. ?Trouble breathing. ?A wheezing sound when you breathe. ?Swelling anywhere on your body. ?Feeling dizzy. ?Vomiting. Your urine turns dark or becomes blood-colored. Your skin turns yellow. You bruise or bleed easily. You have severe diarrhea and abdominal cramps. You have a severe headache. Summary Antibiotic medicines are used to treat infections caused by bacteria, such as strep throat and UTIs. It is important that you take antibiotic medicines only when needed. Your health care provider may change or stop the antibiotic depending on your test results. Most antibiotics can cause an infection called Clostridioides difficile (C. difficile or C. diff), which causes severe diarrhea. Let your health care provider know if you develop diarrhea while taking an antibiotic. Take the entire course of antibiotic that was prescribed. This information is not intended to replace advice given to you by your health care provider. Make sure you discuss any questions you have with your health care provider. Document Released: 01/22/2005 Document Revised: 11/10/2018 Document Reviewed: 05/13/2017 [employer] Patient Education 2020 [employer] 09/13/2021 11:27:33 Urodynamic Testing Urodynamic Testing What is urodynamic testing? Urodynamic tests are done to determine how well your lower urinary tract is working. The lower urinary tract includes your bladder and the part of your body that drains urine from the bladder (urethra). When your kidneys filter your blood, urine is stored in your bladder until you feel the urge to urinate. Urination requires coordination between the nerves and muscles of your bladder and urethra. When your lower urinary tract is working well, you should be able to: Start urinating when your bladder is full. Empty your bladder completely. Control the flow of your urine. Why do I need urodynamic testing? You may need urodynamic testing to help find the cause of any of these problems: Leaking urine (incontinence). Problems starting or stopping your urine flow. Frequent or painful urination. Frequent urinary tract infections. Being unable to empty your bladder completely. Having strong urges to pass urine (urgency). Having a weak flow of urine. How do I prepare for the tests? Ask your health care provider about changing or stopping your regular medicines. This is especiallyimportant if you are taking diabetes medicines or blood thinners. You may be asked to avoid urinating before coming to the test so that you arrive with a full bladder. Tell a health care provider about: ?Any allergies you have. ?All medicines you are taking, including vitamins, herbs, eye drops, creams, and usoi-zsw-uvljzdc medicines. ?Whether you are or may be . What are the risks of this testing? Generally, these tests are safe. However, some of the tests have risks, including: Discomfort. Frequent urge to urinate. Bleeding. Infection. Allergic reactions to medicines or dyes (contrast material). How is urodynamic testing done? You may have various urodynamic tests. The tests may be done separately or may all be done during one testing visit. You may be given an antibiotic medicine before or after testing to help prevent infection. The types of tests that may be done include: Uroflowmetry This test measures how much urine you pass and how long it takes to pass. You will urinate into a certain type of toilet or device (flowmeter). The device will measure the volume and the time of your urine flow. These measurements will be sent to a computer that creates a graph of your urine flow. Postvoid residual measurement This test measures how much urine is left in your bladder after you urinate. The test may be done with ultrasound. In this method, sound waves and a computer will be used to create an image of your bladder. The test can also be done by inserting a thin, flexible tube (catheter) into your bladder after youurinate. The remaining urine will be removed through the catheter so it can be measured. Remaining urine will be measured in milliliters (mL). If you have more than 100 mL left in your bladder after you urinate, your bladder is not emptying as it should. Cystometric testing This test uses a type of bladder catheter that can measure pressure. You may be given a medicine to numb the area (local anesthetic). The area around the opening of your urethra will be cleaned. A urinary catheter will be passed through your urethra into your bladder and used to empty your bladder completely. Then a measuring catheter will be placed, and your bladder will be filled with warm, germ-free (sterile) water. Pressure measurements will be taken: ?As your bladder fills. ?When you feel the need to urinate. ?As your bladder is emptied. You may be asked to cough or bear down to check for leakage. In some cases, your bladder may be filled with a material that shows up on X- rays (contrast material) so that X-ray pictures can be taken during the test. Electromyogram This test measures the electrical activity of the nerves and muscles of your bladder and the opening of your urethra. Sticky patches (electrodes) will be placed near your rectum and urethra to measure electrical activity. The measurements will show how well your nerves are communicating with your muscles. What happens after the testing? You should be able to go home right away and do your usual activities. You may be told to drink a glass of water every 30 minutes for the first 2 hours after testing. Taking a warm bath or using warm, wet cloths (warm compresses) may relieve any discomfort near yoururethra. Contact your health care provider if you have: ?Pain. ?Blood in your urine. ?Chills. ?Fever. What do the results mean? Talk with your health care provider about what your results mean. Some common causes for abnormal results from urodynamic tests include: Enlarged prostate in men. Overactive bladder. Urinary tract infection. Nervous system diseases. Spinal cord damage. Questions to ask your health care provider Ask your health care provider, or the department that is doing the test: When will my results be ready? How will I get my results? What are my treatment options? What other tests do I need? What are my next steps? Summary Urodynamic tests are done to determine how well your lower urinary tract is working. The lower urinary tract includes your bladder and urethra. You may need urodynamic testing to help find the cause of various problems with urination, such as leaking urine (incontinence) or problems starting or stopping your urine flow. You may have various urodynamic tests. The tests may be done separately or may all be done during one testing visit. Talk with your health care provider about what your results mean. Contact your health care provider if you have pain, chills, a fever, or blood in your urine. This information is not intended to replace advice given to you by your health care provider. Make sure you discuss any questions you have with your health care provider. Document Released: 03/08/2008 Document Revised: 08/31/2019 Document Reviewed: 03/16/2018 [employer] Patient Education 2019 [employer]. [facility] [place] 04-21-2022 Miscellaneous Notes* Telephone Encounter - Irma Gregg RN - 09/13/2021 10:12 AM EDT Reason for call: Urinary retention Outcome: Advised to be seen within the next 2 weeks. Patient would like to be seen sooner and wouldlike to speak with office. Conferenced to Jovanna in Dr. Kyler Mancera's office for further assistance and appointment. Reason for Disposition Urination is difficult to start (i.e., hesitancy) or straining Answer Assessment - Initial Assessment Questions 1. SYMPTOM: Urinary retention, able to urinate some, feels she should be urinating more, bladder does not feel full 2. ONSET: Off and on, unable to give a time frame symptoms started 3. PAIN: Denies 4. CAUSE: Urinary retention 5. OTHER SYMPTOMS: Denies 6. : Post menopausal Protocols used: URINARY [id number] [facility] + Plan note Extracted from: Title:ED Note Author:Santiago Harrington DO Date :09/08/21 Acute urinary retention (R33 .8: Other retention of urine) Orders: Automated Diff Basic Metabolic Panel CBC w/ Auto Diff ECG 12 Lead Adult eGFR Troponin 0 Hr. Urinary Catheter Insertion XR Chest Single View Future Scheduled Tests Laboratory* TIBC Calculated 08/06/21 * Basic Metabolic Panel 03/27/21 * Ferritin 08/06/21 * Folate Level 08/06/21 * Iron Level 08/06/21 * Lipase Level 08/06/21 * Vitamin B12 Level 08/06/21 Radiology* XR Foot 3+ Views Right 07/25/21 [facility]04-16-2022 Evaluation + Plan noteExtracted from: Title:ED Note Author:Vic BYRD, Malick Bray te:09/08/21 Dysuria (R30.0: Dysuria) Orders: lorazepam, 1 mg = 1 tab(s), Tab, Oral, Once, Stop date 09/08/21 8:40:00 EDT, STAT, Start date 09/08/21 8:40:00 EDT, 09/08/21 8:40:00 EDT phenazopyridine, 200 mg = 1 tab(s), Oral, TID, X 2 day(s), # 6 tab(s), Refills(s) 0, Pharmacy: [facility]/pharmacy #[id number], 158, cm, 09/08/21 8:41:00 EDT, Height/Length Dosing, 63, kg, 09/08/21 8:41:00 EDT, Weight Dosing Future Scheduled Tests Laboratory* TIBC Calculated 08/06/21 * Basic Metabolic Panel 03/27/21 * Ferritin 08/06/21 * Folate Level 08/06/21 * Iron Level 08/06/21 * Lipase Level 08/06/21 * Vitamin B12 Level 08/06/21 Radiology* XR Foot 3+ Views Right 07/25/21 [facility]04-16-2022 Hospital Discharge instructions Patient Education 09/08/2021 09:57:29 Dysuria Dysuria Dysuria is pain or discomfort while urinating. The pain or discomfort may be felt in the part of your body that drains urine from the bladder (urethra) or in the surrounding tissue of the genitals. The pain may also be felt in the groin area, lower abdomen, or lower back. You may have to urinate frequently or have the sudden feeling that you have to urinate (urgency). Dysuria can affect both men and women, but it is more common in women. Dysuria can be caused by many different things, including: Urinary tract infection. Kidney stones or bladder stones. Certain sexually transmitted infections (STIs), such as chlamydia. Dehydration. Inflammation of the tissues of the vagina. Use of certain medicines. Use of certain soaps or scented products that cause irritation. Follow these instructions at home: General instructions Watch your condition for any changes. Urinate often. Avoid holding urine for long periods of time. After a bowel movement or urination, women should cleanse from front to back, using each tissue only once. Urinate after sexual intercourse. Keep all follow-up visits as told by your health care provider. This is important. If you had any tests done to find the cause of dysuria, it is up to you to get your test results. Ask your health care provider, or the department that is doing the test, when your results will be ready. Eating and drinking Drink enough fluid to keep your urine pale yellow. Avoid caffeine, tea, and alcohol. They can irritate the bladder and make dysuria worse. In men, alcohol may irritate the prostate. Medicines Take fptx-lnp-admfjed and prescription medicines only as told by your health care provider. If you were prescribed an antibiotic medicine, take it as told by your health care provider. Do notstop taking the antibiotic even if you start to feel better. Contact a health care provider if: You have a fever. You develop pain in your back or sides. You have nausea or vomiting. You have blood in your urine. You are not urinating as often as you usually do. Get help right away if: Your pain is severe and not relieved with medicines. You cannot eat or drink without vomiting. You are confused. You have a rapid heartbeat while at rest. You have shaking or chills. You feel extremely weak. Summary Dysuria is pain or discomfort while urinating. Many different conditions can lead to dysuria. If you have dysuria, you may have to urinate frequently or have the sudden feeling that you have tourinate (urgency). Watch your condition for any changes. Keep all follow-up visits as told by your health care provider. Make sure that you urinate often and drink enough fluid to keep your urine pale yellow. This information is not intended to replace advice given to you by your health care provider. Make sure you discuss any questions you have with your health care provider. Document Released: 02/07/2005 Document Revised: 04/24/2018 Document Reviewed: 02/26/2018 [employer] Patient Education 2020 [employer]. Follow Up Care 09/08/2021 08:35:50 With:Tomas FARRELL Address: [address] [address]- Business (1) When:09/11/2021 09:30:02 [facility]04-16-2022 Hospital Discharge instructions Patient Education 09/08/2021 05:38:39 Acute Urinary Retention, Female Acute Urinary Retention, Female Acute urinary retention is a condition in which a person is unable to pass urine. This can last fora short time or for a long time. If left untreated, it can result in kidney damage or other seriouscomplications. What are the causes? This condition may be caused by: Obstruction or narrowing of the tube that drains the bladder (urethra). This may be caused by surgery or problems with nearby organs, which can press or squeeze the urethra. Problems with the nerves in the bladder. These can be caused by diseases, such as multiple sclerosis, or by spinal cord injuries. Certain medicines. Tumors in the area of the pelvis, bladder, or urethra. Degenerative cognitive conditions such as delirium or dementia. Diabetes. Vaginal childbirth. Bladder or urinary tract infection. Constipation. Blood in the urine (hematuria). Injury to the bladder or urethra. Psychological (psychogenic) conditions. Someone may hold her urine due to trauma or because she does not want to use the bathroom. What are the signs or symptoms? Symptoms of this condition include: Trouble urinating. Pain in the lower abdomen. How is this diagnosed? This condition is diagnosed based on a physical exam and a medical history. You may also have othertests, including: An ultrasound of the bladder or kidneys or both. Blood tests. A urine analysis. Additional tests may be needed such as an MRI, kidney, or bladder function tests. How is this treated? Treatment for this condition may include: Medicines. Placing a thin, sterile tube (catheter) into the bladder to drain urine out of the body. This is called an indwelling urinary catheter. After being inserted, the catheter is held in place with a small balloon that is filled with sterile water. Urine drains from the catheter into a collection bag outside of the body. Behavioral therapy. Treatment for any underlying conditions. If needed, you may be treated in the hospital for kidney function problems or to manage other complications. Follow these instructions at home: Take ooml-bhb-nrrqyto and prescription medicines only as told by your health care provider. Avoid certain medicines, such as decongestants, antihistamines, and some prescription medicines. Do not take any medicine unless your health care provider has approved. If you were given an indwelling urinary catheter, take care of it as told by your health care provider. Drink enough fluid to keep your urine clear or pale yellow. If you were prescribed an antibiotic, take it as told by your health care provider. Do not stop taking the antibiotic even if you start to feel better. Do not use any products that contain nicotine or tobacco, such as cigarettes and e-cigarettes. If you need help quitting, ask your health care provider. Monitor any changes in your symptoms. Tell your health care provider about any changes. If instructed, monitor your blood pressure at home. Report changes as told by your health care provider. Keep all follow-up visits as told by your health care provider. This is important. Contact a health care provider if: You have uncomfortable bladder contractions that you cannot control (spasms) or you leak urine withthe spasms. Get help right away if: You have chills or fever. You have blood in your urine. You have a catheter and: ?Your catheter stops draining urine. ?Your catheter falls out. Summary Acute urinary retention is a condition in which a person is unable to pass urine. If left untreated, it can result in kidney damage or other serious complications. This condition may be caused by surgery or problems with nearby organs, which can press or squeeze the urethra. Treatment may include medicines and placement of an indwelling urinary catheter. Monitor any changes in your symptoms. Tell your health care provider about any changes. This information is not intended to replace advice given to you by your health care provider. Make sure you discuss any questions you have with your health care provider. Document Released: 05/11/2007 Document Revised: 04/24/2018 Document Reviewed: 06/13/2017 [employer] Patient Education 2020 [employer] Follow Up Care 09/08/2021 04:59:06 With:Rukhsana Mcarthur Address: [address], [address] [place] [address]- [phone] Business (1) When:09/11/2021 05:26:10 With:Tomas JOSE Address: [address] [place] [address]- Business (1) When:Within 3 Day(s) [facility]04-16-2022 Hospital Discharge instructions Patient Education 09/07/2021 23:00:43 Panic Attack Panic Attack A panic attack is a sudden episode of severe anxiety, fear, or discomfort that causes physical and emotional symptoms. The attack may be in response to something frightening, or it may occur for no known reason. Symptoms of a panic attack can be similar to symptoms of a heart attack or stroke. It is important to see your health care provider when you have a panic attack so that these conditions can be ruled out. A panic attack is a symptom of another condition. Most panic attacks go away with treatment of the underlying problem. If you have panic attacks often, you may have a condition called panic disorder. What are the causes? A panic attack may be caused by: An extreme, life-threatening situation, such as a war or natural disaster. An anxiety disorder, such as post-traumatic stress disorder. Depression. Certain medical conditions, including heart problems, neurological conditions, and infections. Certain ysgu-xoe-cjfacjr and prescription medicines. Illegal drugs that increase heart rate and blood pressure, such as methamphetamine. Alcohol. Supplements that increase anxiety. Panic disorder. What increases the risk? You are more likely to develop this condition if: You have an anxiety disorder. You have another mental health condition. You take certain medicines. You use alcohol, illegal drugs, or other substances. You are under extreme stress. A life event is causing increased feelings of anxiety and depression. What are the signs or symptoms? A panic attack starts suddenly, usually lasts about 20 minutes, and occurs with one or more of the following: A pounding heart. A feeling that your heart is beating irregularly or faster than normal (palpitations). Sweating. Trembling or shaking. Shortness of breath or feeling smothered. Feeling choked. Chest pain or discomfort. Nausea or a strange feeling in your stomach. Dizziness, feeling lightheaded, or feeling like you might faint. Chills or hot flashes. Numbness or tingling in your lips, hands, or feet. Feeling confused, or feeling that you are not yourself. Fear of losing control or being emotionally unstable. Fear of dying. How is this diagnosed? A panic attack is diagnosed with an assessment by your health care provider. During the assessment your health care provider will ask questions about: Your history of anxiety, depression, and panic attacks. Your medical history. Whether you drink alcohol, use illegal drugs, take supplements, or take medicines. Be honest about your substance use. Your health care provider may also: Order blood tests or other kinds of tests to rule out serious medical conditions. Refer you to a mental health professional for further evaluation. How is this treated? Treatment depends on the cause of the panic attack: If the cause is a medical problem, your health care provider will either treat that problem or refer you to a specialist. If the cause is emotional, you may be given anti-anxiety medicines or referred to a counselor. These medicines may reduce how often attacks happen, reduce how severe the attacks are, and lower anxiety. If the cause is a medicine, your health care provider may tell you to stop the medicine, change your dose, or take a different medicine. If the cause is a drug, treatment may involve letting the drug wear off and taking medicine to helpthe drug leave your body or to counteract its effects. Attacks caused by drug abuse may continue even if you stop using the drug. Follow these instructions at home: Take mqgp-ofn-tgxpxlp and prescription medicines only as told by your health care provider. If you feel anxious, limit your caffeine intake. Take good care of your physical and mental health by: ?Eating a balanced diet that includes plenty of fresh fruits and vegetables, whole grains, lean meats, and low-fat dairy. ?Getting plenty of rest. Try to get 7 8 hours of uninterrupted sleep each night. ?Exercising regularly. Try to get 30 minutes of physical activity at least 5 days a week. ?Not smoking. Talk to your health care provider if you need help quitting. ?Limiting alcohol intake to no more than 1 drink a day for non women and 2 drinks a day formen. One drink equals 12 oz of beer, 5 oz of wine, or 1 oz of hard liquor. Keep all follow-up visits as told by your health care provider. This is important. Panic attacks may have underlying physical or emotional problems that take time to accurately diagnose. Contact a health care provider if: Your symptoms do not improve, or they get worse. You are not able to take your medicine as prescribed because of side effects. Get help right away if: You have serious thoughts about hurting yourself or others. You have symptoms of a panic attack. Do not drive yourself to the hospital. Have someone else driveyou or call an ambulance. If you ever feel like you may hurt yourself or others, or you have thoughts about taking your own life, get help right away. You can go to your nearest emergency department or call: Your local emergency services (911 in the [place] A suicide crisis helpline, such as the National Suicide Prevention Lifeline at . Thisis open 24 hours a day. Summary A panic attack is a sign of a serious health or mental health condition. Get help right away. Do not drive yourself to the hospital. Have someone else drive you or call an ambulance. Always see a health care provider to have the reasons for the panic attack correctly diagnosed. If your panic attack was caused by a physical problem, follow your health care provider's suggestions for medicine, referral to a specialist, and lifestyle changes. If your panic attack was caused by an emotional problem, follow through with counseling from a qualified mental health specialist. If you feel like you may hurt yourself or others, call 911 and get help right away. This information is not intended to replace advice given to you by your health care provider. Make sure you discuss any questions you have with your health care provider. Document Released: 05/12/2006 Document Revised: 04/24/2018 Document Reviewed: 06/20/2017 [employer] Patient Education 2020 [employer] Follow Up Care 09/07/2021 21:20:10 With:Tomas FARRELL Address: [address] [address]- Business (1) When:Within 3 Day(s) [facility]04-15-2022 Evaluation + Plan noteExtracted from: Title:ED Note Author:Carlos Coates MD Date: 1. Diarrhea (R19.7: Diarrhea , unspecified) UTI (urinary tract infection) (N39.0: Urinary tract infection, site not specified) Orders: ciprofloxacin, 500 mg = 1 tab(s), Oral, BID, # 14 tab(s), Refills(s) 0, Pharmacy: [facility]/pharmacy #[id number], 157, cm, 09/07/21 5:48:00 EDT, Height/Length Dosing, 63.8, kg, 09/07/21 5:48:00 EDT, Weight Dosing Diagnostic Tests Pending * Urine Culture 09/07/21 Future Scheduled Tests Laboratory* TIBC Calculated 08/06/21 * Basic Metabolic Panel 03/27/21 * Ferritin 08/06/21 * Folate Level 08/06/21 * Iron Level 08/06/21 * Lipase Level 08/06/21 * Vitamin B12 Level 08/06/21 Radiology* XR Foot 3+ Views Right 07/25/21 [facility]04-15-2022 Evaluation + Plan noteExtracted from: Title:ED Note Author:Santiago Harrington DO Date :09/07/21 Shortness of breath (R06.02: Shortness of breath) Orders: Automated Diff Basic Metabolic Panel CBC w/ Auto Diff ECG 12 Lead Adult ED Cardiac Monitoring eGFR Oxygen Saturation Oxygen Therapy Saline Lock Insert Troponin 0 Hr. XR Chest Single View Future Scheduled Tests Laboratory* TIBC Calculated 08/06/21 * Basic Metabolic Panel 03/27/21 * Ferritin 08/06/21 * Folate Level 08/06/21 * Iron Level 08/06/21 * Lipase Level 08/06/21 * Vitamin B12 Level 08/06/21 Radiology* XR Foot 3+ Views Right 07/25/21 [facility]04-15-2022 Hospital Discharge instructions Follow Up Care 09/07/2021 05:35:03 With:Tomas FARRELL Address: [address] [place] [phone]- Business (1) When:Within 3 Day(s) [facility]04-14-2022 Evaluation + Plan note Diagnostic Tests Pending * Urine Culture 09/06/21 Future Scheduled Tests Laboratory* TIBC Calculated 08/06/21 * Basic Metabolic Panel 03/27/21 * Ferritin 08/06/21 * Folate Level 08/06/21 * Iron Level 08/06/21 * Lipase Level 08/06/21 * Vitamin B12 Level 08/06/21 Radiology* XR Foot 3+ Views Right 07/25/21 [facility]04-05-2022 Hospital Discharge instructions Follow Up Care 08/28/2021 12:07:22 With:Tomas FARRELL DO, [facility] Address: [address] [address]- When: only if needed With:Tomas FARRELL DO [facility] Address: [address] [address]- When: only if needed [facility] [place] 04-04-2022 History of Present illness Narrative* Osmar Ferreira MD - 08/27/2021 8:58 AM EDT Telephone Visit Via Phone Call [place] [phone] [address] ([address]) [facility] [address] 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 female) PCP: Tomas Farrell DO I discussed risks, benefits and alternatives of a telephone visit telemedicine consultation with the patient (and any accompanying persons) including the risks that the patient's personal health details and medical records will be discussed over real-time, synchronous, interactive audio technology,the visit will not be recorded without the express consent of both the provider and the patient, and that there are inherent diagnostic limitations compared to [id number] evaluations. We elected toproceed with the telephone visit telemedicine consultation. HPI Patient is interviewed over the phone. Audio quality was fair. Patient was well engaged. Patient does not report any acute decline in her moods or worsening of anxiety. Patient is able to sleep fairly okay most nights, averaging around 6 to 7 hours of sleep. Currently not reporting any depressed mood or anhedonia. Taking care of her ADLs and hygiene. Patient does not report any acute falls or dizziness. Patient has not been to the ER for any psychiatric or physical needs. Patient states she hasbeen compliant with her medications and denies any ongoing side effects. Trauma symptoms have been minimal. Patient denies any excessive flashbacks or nightmares. Minimal breakthrough anxiety reported. Patient is not reporting any manic mood symptoms at this time. Denies any ongoing persistent racing thoughts or flight of ideas. Speech was not pressured. Patient denies any ongoing perceptual disturbances. Denies any ongoing feelings of hopelessness or suicidal ideation. Appetite is within normal limits. Denies any paranoia or delusions. Medications assessed: Patient is compliant, denies any side effects, wants to stay on the same plan. Patient understands the benefits and risks of being on Klonopin and Ambien. Patient has been on this combination for last 20 years and wants to stay on the same plan. Denies any ongoing drug or alcohol abuse. The following portions of the patient's history were reviewed and updated as appropriate: allergies, current medications, past family history, past medical history, past social history, past surgicalhistory and problem list. Review of Systems Constitutional: Negative. HENT: Negative. Eyes: Negative. Respiratory: Negative. Cardiovascular: Negative. Gastrointestinal: Negative. Endocrine: Negative. Genitourinary: Negative. Skin: Negative. Allergic/Immunologic: Negative. Neurological: Negative. Hematological: Negative. Patient's Medications New Prescriptions NALOXONE (NARCAN) 4 MG/ACTUATION SPRY Administer 1 spray into one nostril for known or suspected opioid overdose. If patient worsens or does not respond, may repeat in 2-3 minutes. . Previous Medications ALBUTEROL (PROVENTIL HFA;VENTOLIN HFA) 90 MCG/ACTUATION INHALER Inhale 1 puff every 4 (four) hours as needed for wheezing CELECOXIB (CELEBREX) 200 MG CAPSULE Take 200 mg by mouth daily CYANOCOBALAMIN (B-12) 1,000 MCG/ML INJECTION Inject 1,000 mcg into the shoulder, thigh, or buttocksevery 30 (thirty) days CYCLOBENZAPRINE (FLEXERIL) 10 MG TABLET Take 10 mg by mouth 2 (two) times a day DIPHENHYDRAMINE-ACETAMINOPHEN (TYLENOL PM) 25-500 MG TAB Take 1 tablet by mouth nightly as needed ELIQUIS 5 MG TAB Take 5 mg by mouth daily LISINOPRIL (PRINIVIL,ZESTRIL) 20 MG TABLET Take 20 mg by mouth daily LYRICA 150 MG CAPSULE Take 150 mg by mouth 2 (two) times a day OXYCODONE-ACETAMINOPHEN (PERCOCET) 5-325 MG PER TABLET Take 1 tablet by mouth every 4 to 6 hours asneeded PANTOPRAZOLE (PROTONIX) 40 MG TABLET Take 40 mg by mouth daily PROMETHAZINE (PHENERGAN) 25 MG TABLET Take 25 mg by mouth every 8 (eight) hours Modified Medications Modified Medication Previous Medication CITALOPRAM (CELEXA) 20 MG TABLET citalopram (CELEXA) 20 MG tablet Take 1 (one) tablet (20 mg total) by mouth daily . Take 1 (one) tablet (20 mg total) by mouth daily. CLONAZEPAM (KLONOPIN) 1 MG TABLET clonazePAM (KLONOPIN) 1 MG tablet Take 1 (one) tablet (1 mg total) by mouth 3 (three) times a day . Take 1 (one) tablet (1 mg total) by mouth 3 (three) times a day . THIOTHIXENE (NAVANE) 2 MG CAPSULE thiothixene (NAVANE) 2 MG capsule Take 1 (one) capsule (2 mg total) by mouth at bedtime . Take 1 (one) capsule (2 mg total) by mouth at bedtime . TRAZODONE (DESYREL) 150 MG TABLET traZODone (DESYREL) 150 MG tablet Take 1 (one) tablet (150 mg total) by mouth nightly . Take 1 (one) tablet (150 mg total) by mouth nightly . ZOLPIDEM (AMBIEN) 5 MG TABLET zolpidem (AMBIEN) 5 MG tablet Take 1 (one) tablet (5 mg total) by mouth nightly as needed for sleep . Take 1 (one) tablet (5 mg total) by mouth nightly as needed for sleep . Discontinued Medications No medications on file Assessment/Plan: Diagnoses and all orders for this visit: Post traumatic stress disorder (PTSD) Bipolar 1 disorder, manic, mild (HCC) Panic disorder with agoraphobia Insomnia due to mental disorder - zolpidem (AMBIEN) 5 MG tablet; Take 1 (one) tablet (5 mg total) by mouth nightly as needed for sleep . MSE: Patient is engaged over the phone. Speech is within normal limits. Patient reports 'okay' mood. Patient denies any ongoing suicidal ideation. Patient denies any ongoing flight of ideas or racing thoughts. Denies any perceptual disturbances. Denies any ongoing homicidal ideation. Patient's impulse control has been fair. Patient's memory is baseline intact. Attention/concentration: Adequate, insight and judgment: Adequate, language/intellect: Average Treatment Plan: Pharmacological management: Alternative medication plans were discussed with the patient/guardian. All relevant side effects and potential adverse effects were discussed with the patient/guardian. Standard cautions and potential benefits were discussed. FDA label and OFF label uses of medications were discussed. Patient/Guardian consented to the start/continuation of the following: Continue same medications without any changes. See above Will monitor side effects and progress and adjust medications appropriately Crisis Intervention plan was discussed and agreed upon. Patient/Guardian will call 911 in case of emergency. Emergency contact information was provided to the patient/guardian. Laboratory and other tests: See orders. Psychotherapy: None Follow up as scheduled or return early if needed. School or community referral: None Treatment Goals and Objectives discussed. Other Referrals/Consults/Psychological Testing: None I have spent 20 minutes with the patient reviewing the HPI and Plan of Care. documented in this [id number] Evaluation + Plan note Future Scheduled Tests Laboratory* TIBC Calculated 08/06/21 * Basic Metabolic Panel 03/27/21 * Ferritin 08/06/21 * Folate Level 08/06/21 * Iron Level 08/06/21 * Lipase Level 08/06/21 * Vitamin B12 Level 08/06/21 Radiology* XR Foot 3+ Views Right 07/25/21 [facility]03-14-2022 Evaluation + Plan note Future Scheduled Tests Laboratory* TIBC Calculated 08/06/21 * Basic Metabolic Panel 03/27/21 * Ferritin 08/06/21 * Folate Level 08/06/21 * Iron Level 08/06/21 * Lipase Level 08/06/21 * Vitamin B12 Level 08/06/21 Radiology* XR Foot 3+ Views Right 07/25/21 [facility] [place] 03-14-2022 Evaluation + Plan note Future Scheduled Tests Laboratory* TIBC Calculated 08/06/21 * Sodium Level 12/20/21 * Basic Metabolic Panel 03/27/21 * Ferritin 08/06/21 * Folate Level 08/06/21 * Hemoglobin 12/20/21 * Iron Level 08/06/21 * Lipase Level 08/06/21 * Vitamin B12 Level 08/06/21 Radiology* XR Foot 3+ Views Right 07/25/21 [facility] 03-14-2022 Evaluation + Plan note Future Scheduled Tests Laboratory* TIBC Calculated 08/06/21 * Sodium Level 12/20/21 * Ferritin 08/06/21 * Folate Level 08/06/21 * Hemoglobin 12/20/21 * Iron Level 08/06/21 * Lipase Level 08/06/21 * Vitamin B12 Level 08/06/21 Radiology* XR Foot 3+ Views Right 07/25/21 [facility] 03-14-2022 Evaluation + Plan note Future Scheduled Tests Laboratory* TIBC Calculated 08/06/21 * Sodium Level 12/20/21 * Basic Metabolic Panel 04/25/22 * Ferritin 08/06/21 * Folate Level 08/06/21 * Hemoglobin 12/20/21 * Iron Level 08/06/21 * Lipase Level 08/06/21 * Vitamin B12 Level 08/06/21 Radiology* XR Foot 3+ Views Right 07/25/21 [facility] 02-21-2022 Telephone encounter Note* Telephone Encounter - Jessica Willis MA - 07/16/2021 7:39 AM EST She has an appt on 07/17. She called twice on Friday and said that the pharmacy told her to call us and get the ok for a refill. [id number] Miscellaneous Notes* Telephone Encounter - Jessica Willis MA - 07/16/2021 7:39 AM EST She has an appt on 07/17. She called twice on Friday and said that the pharmacy told her to call us and get the ok for a refill. documented in this [id number] History of Present illness Narrative* Osmar Ferreira MD - 04/16/2021 11:22 AM EST Telephone Visit Via Phone Call [facility] [address] ([address]) [facility] [address] 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 female) PCP: Tomas Farrell, I discussed risks, benefits and alternatives of a telephone visit telemedicine consultation with the patient (and any accompanying persons) including the risks that the patient's personal health details and medical records will be discussed over real-time, synchronous, interactive audio technology,the visit will not be recorded without the express consent of both the provider and the patient, and that there are inherent diagnostic limitations compared to [id number] evaluations. We elected toproceed with the telephone visit telemedicine consultation. HPI Interviewed over the phone. Patient was able to engage appropriately Patient reports no new concerns or issues to report. She stated she is Maintaining baseline mood stability and denies any decline in her moods or behavior since she was last seen.. Patient reports nonew incidents of fall or episodes of dizziness or syncope. Patient is not reporting ongoing pervasive depressed mood. She denies any ongoing feelings of hopelessness, worthlessness or helplessness. States her ADLs and hygiene have been fair. Reports normal appetite. She denies any excessive fatigue or tiredness. Patient denies any ongoing suicide ideations. Patient is not reporting any pervasive irritability or inflated mood. Any ongoing racing thoughts or flight of ideas. Impulse control has been fair. Sleep has been adequate no issues falling or staying asleep and is averaging around 6 to 7 hours of sleep nightly. Anxiety control has been okay, denies excessive worrying or difficulty voiding at this time. Patient is not reporting any flashbacks or nightmares or intrusive memories that are bothersome water trauma. Medications assessed patient reported compliance with her medications. Denies any ongoing side effects. Patient wants to continue same plan. Patient again verbalized understanding of cons of being on Klonopin and Ambien long-term. Patient understands the risks of these medications and the risk of Interpersonal issues were discussed: Support was provided Brief supportive/insight oriented/behavior modification counseling was provided Goals and objectives of treatment: Maintain baseline stability Maintain adequate anxiety control Prevent psychiatric hospitalizations Prevent breakthrough psychosis The following portions of the patient's history were reviewed and updated as appropriate: allergies, current medications, past family history, past medical history, past social history, past surgicalhistory and problem list. Review of Systems Constitutional: Negative. HENT: Negative. Eyes: Negative. Respiratory: Negative. Cardiovascular: Negative. Gastrointestinal: Negative. Endocrine: Negative. Genitourinary: Negative. Allergic/Immunologic: Negative. Neurological: Negative. Patient's Medications New Prescriptions No medications on file Previous Medications ALBUTEROL (PROVENTIL HFA;VENTOLIN HFA) 90 MCG/ACTUATION INHALER Inhale 1 puff every 4 (four) hours as needed for wheezing CELECOXIB (CELEBREX) 200 MG CAPSULE Take 200 mg by mouth daily CITALOPRAM (CELEXA) 20 MG TABLET Take 1 (one) tablet (20 mg total) by mouth daily . CLONAZEPAM (KLONOPIN) 1 MG TABLET Take 1 (one) tablet (1 mg total) by mouth 3 (three) times a day . CYANOCOBALAMIN (B-12) 1,000 MCG/ML INJECTION Inject 1,000 mcg into the shoulder, thigh, or buttocksevery 30 (thirty) days CYCLOBENZAPRINE (FLEXERIL) 10 MG TABLET Take 10 mg by mouth 2 (two) times a day DIPHENHYDRAMINE-ACETAMINOPHEN (TYLENOL PM) 25-500 MG TAB Take 1 tablet by mouth nightly as needed ELIQUIS 5 MG TAB Take 5 mg by mouth daily LISINOPRIL (PRINIVIL,ZESTRIL) 20 MG TABLET Take 20 mg by mouth daily LYRICA 150 MG CAPSULE Take 150 mg by mouth 2 (two) times a day OXYCODONE-ACETAMINOPHEN (PERCOCET) 5-325 MG PER TABLET Take 1 tablet by mouth every 4 to 6 hours asneeded PANTOPRAZOLE (PROTONIX) 40 MG TABLET Take 40 mg by mouth daily PROMETHAZINE (PHENERGAN) 25 MG TABLET Take 25 mg by mouth every 8 (eight) hours THIOTHIXENE (NAVANE) 2 MG CAPSULE Take 1 (one) capsule (2 mg total) by mouth at bedtime . TRAZODONE (DESYREL) 150 MG TABLET Take 1 (one) tablet (150 mg total) by mouth nightly . ZOLPIDEM (AMBIEN) 5 MG TABLET Take 1 (one) tablet (5 mg total) by mouth nightly as needed for sleep. Modified Medications No medications on file Discontinued Medications No medications on file Assessment/Plan: Diagnoses and all orders for this visit: Bipolar 1 disorder, manic, mild (HCC) Post traumatic stress disorder (PTSD) Panic disorder with agoraphobia - clonazePAM (KLONOPIN) 1 MG tablet; Take 1 (one) tablet (1 mg total) by mouth 3 (three) times a day . Insomnia due to mental disorder - zolpidem (AMBIEN) 5 MG tablet; Take 1 (one) tablet (5 mg total) by mouth nightly as needed for sleep . Other orders - citalopram (CELEXA) 20 MG tablet; Take 1 (one) tablet (20 mg total) by mouth daily . - thiothixene (NAVANE) 2 MG capsule; Take 1 (one) capsule (2 mg total) by mouth at bedtime . - traZODone (DESYREL) 150 MG tablet; Take 1 (one) tablet (150 mg total) by mouth nightly . Global assessment of functionin Treatment Plan: Pharmacological management: Alternative medication plans were discussed with the patient/guardian. All relevant side effects and potential adverse effects were discussed with the patient/guardian. Standard cautions and potential benefits were discussed. FDA label and OFF label uses of medications were discussed. Patient/Guardian consented to the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 Basic Metabolic Panel 03/27/21 * Ferritin 08/06/21 * Folate Level 08/06/21 * Hemoglobin 12/20/21 * Iron Level 08/06/21 * Lipase Level 08/06/21 * Vitamin B12 Level 08/06/21 Radiology* XR Foot 3+ Views Right 07/25/21 [facility] Evaluation + Plan note Future Appointments Appointment Date:01/29/2022 11:40:00 AM Scheduled Provider:Tomas FARRELL DO Location:[facility] Appointment Type: Open Diagnostic Tests Pending * Urine Culture 01/14/22 Future Scheduled Tests Laboratory* TIBC Calculated 08/06/21 * Sodium Level 12/20/21 * Basic Metabolic Panel 03/27/21 * Ferritin 08/06/21 * Folate Level 08/06/21 * Hemoglobin 12/20/21 * Iron Level 08/06/21 * Lipase Level 08/06/21 * Vitamin B12 Level 08/06/21 Radiology* XR Foot 3+ Views Right [facility] Appointment Date:01/29/2022 11:40:00 AM Scheduled Provider:Tomas FARRELL DO Location:[facility] Appointment Type: Open Diagnostic Tests Pending * Urine Culture 01/15/22 Future Scheduled Tests Laboratory* TIBC Calculated 08/06/21 * Sodium Level 12/20/21 * Basic Metabolic Panel 03/27/21 * Ferritin 08/06/21 * Folate Level 08/06/21 * Hemoglobin 12/20/21 * Iron Level 08/06/21 * Lipase Level 08/06/21 * Vitamin B12 Level 08/06/21 Radiology* XR Foot 3+ Views Right [facility]ments Appointment Date:01/29/2022 11:40:00 AM Scheduled Provider:Tomas FARRELL DO Location:[facility] Appointment Type: Open Future Scheduled Tests Laboratory* TIBC Calculated 08/06/21 * Sodium Level 12/20/21 * Basic Metabolic Panel 03/27/21 * Ferritin 08/06/21 * Folate Level 08/06/21 * Hemoglobin 12/20/21 * Iron Level 08/06/21 * Lipase Level 08/06/21 * Vitamin B12 Level 08/06/21 Radiology* XR Foot 3+ Views Right 07/25/21 [facility] Evaluation + Plan note Future Appointments Appointment Date:04/29/2022 11:40:00 AM Scheduled Provider:Tomas FARRELL DO Location:[facility] Appointment Type: Open Appointment Date:05/28/2022 01:00:00 PM Scheduled Provider:Tomas FARRELL DO Location:[facility] Appointment Type: Open Future Scheduled Tests Laboratory* TIBC Calculated 08/06/21 * Sodium Level 12/20/21 * Basic Metabolic Panel 04/25/22 * Ferritin 08/06/21 * Folate Level 08/06/21 * Hemoglobin 12/20/21 * Iron Level 08/06/21 * Lipase Level 08/06/21 * Vitamin B12 Level 08/06/21 Radiology* XR Foot 3+ Views Right 07/25/21 [facility] Evaluation + Plan note Future Appointments Appointment Date:04/29/2022 11:40:00 AM Scheduled Provider:Tomas FARRELL DO Location:[facility] Appointment Type:FM Open Appointment Date:05/28/2022 01:00:00 PM Scheduled Provider:Tomas FARRELL DO Location:[facility] Appointment Type: Open Diagnostic Tests Pending * Urine Culture 04/25/22 Future Scheduled Tests Laboratory* TIBC Calculated 08/06/21 * Sodium Level 12/20/21 * Basic Metabolic Panel 04/25/22 * Ferritin 08/06/21 * Folate Level 08/06/21 * Hemoglobin 12/20/21 * Iron Level 08/06/21 * Lipase Level 08/06/21 * Vitamin B12 Level 08/06/21 Radiology* XR Foot 3+ Views Right [facility] Appointment Date:05/28/2022 01:00:00 PM Scheduled Provider:Tomas FARRELL DO Location:[facility] Appointment Type: Open Future Scheduled Tests Laboratory* TIBC Calculated 08/06/21 * Sodium Level 12/20/21 * Basic Metabolic Panel 04/25/22 * Ferritin 08/06/21 * Folate Level 08/06/21 * Hemoglobin 12/20/21 * Iron Level 08/06/21 * Lipase Level 08/06/21 * Vitamin B12 Level 08/06/21 Radiology* XR Foot 3+ Views Right [facility] Appointment Date:08/28/2023 02:30:00 PM Scheduled [facility]: [facility] Diagnosis Panic Disorder with Agoraphobia Agoraphobia with panic disorder [facility] Diagnosis Bipolar 1 disorder, manic, mild (HCC)- Primary Post traumatic stress disorder (PTSD) 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 [facility] Diagnosis Bipolar 1 disorder, manic, mild (HCC)- Primary Post traumatic stress disorder (PTSD) Panic disorder with 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 [facility]* Diagnosis Panic disorder with agoraphobia Agoraphobia with panic disorder documented in this encounter [facility] note* Diagnosis Panic disorder with agoraphobia Agoraphobia with panic disorder documented in this encounter [facility] note* Diagnosis Panic disorder with agoraphobia Agoraphobia with panic disorder documented in this encounter [facility] note* Diagnosis Post traumatic stress disorder (PTSD)- Primary Bipolar 1 disorder, manic, mild (HCC) Panic disorder with 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 documented in this encounter [facility] noteNo assessment information availableUniversity [facility] Work Phone: Evaluation note* Diagnosis Screening for genitourinary condition Screening for other and unspecified genitourinary condition documented in this encounter [facility] note* Diagnosis Bipolar 1 disorder, manic, mild (HCC)- Primary Post traumatic stress disorder (PTSD) Panic disorder with 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 documented in this encounter [facility] note* Diagnosis Urinary tract infection without hematuria, site unspecified- Primary Retention of urine Retention of urine, unspecified Pelvic floor dysfunction Pelvic muscle wasting documented in this encounter [facility] note* Diagnosis Panic disorder with agoraphobia Agoraphobia with panic disorder documented in this encounter [facility] note* Diagnosis Urinary retention- Primary Retention of urine, unspecified Urinary tract infection without hematuria, site unspecified Chronic constipation Unspecified constipation documented in this encounter [facility] note* Diagnosis Urinary tract infection without hematuria, site unspecified- Primary Feeling of incomplete bladder emptying Incomplete bladder emptying Pelvic pain documented in this encounter [facility] note* Diagnosis Feeling of incomplete bladder emptying- Primary Incomplete bladder emptying Recurrent UTI Urinary tract infection, site not specified documented in this encounter [facility] note* Diagnosis Onset Date Resolution Status Acute encephalopathy acute Chronic pain acute Chronic prescription opiate use acute CKD (chronic kidney disease) stage 3, GFR 30-59 ml/min acute Hyponatremia acute Major depressive disorder, recurrent, moderate acute Multiple fracture acute Open wound of right hip acut e Polypharmacy acute Sleep-wake disorder acute [facility] Work Phone: evaluation note* Diagnosis Bipolar 1 disorder, manic, mild (HCC)- Primary Panic disorder with agoraphobia Agoraphobia with panic disorder documented in this encounter [facility] note* Diagnosis Post traumatic stress disorder (PTSD)- Primary Panic disorder with agoraphobia Agoraphobia with panic disorder Bipolar 1 disorder, manic, mild (HCC) documented in this encounter [facility] note* Diagnosis Urinary retention- Primary Retention of urine, unspecified Urinary tract infection without hematuria, site unspecified Pelvic floor dysfunction Pelvic muscle wasting documented in this encounter [facility] note* Diagnosis Urinary retention- Primary Retention of urine, unspecified Feeling of incomplete bladder emptying Incomplete bladder emptying Recurrent UTI Urinary tract infection, site not specified documented in this encounter [facility] note* Diagnosis Onset Date Resolution Status Major depressive disorder, recurrent, moderate acute [facility] Work Phone: Hisjgcv general Narrative - Reported* Type Description Date Medical History low potassium Medical History arthritis Medical History chronic back pain Medical History osteoarthritis Medical History HTN Context Labs Other Hospital course Narrative No data available for this section [facility] No data available for this section [facility] Additional Instructions Take antibiotic as instructed until gone Call your doctor for follow-up appointment on Friday Continue taking medications as prescribed Return here if any problems persist or worsen You have a urine culture is pendingUniversity [facility] Work Phone: Progress note No data available for this section [facility] Summary Purpose Family History No Family History Records Found Relationship Condition Age at Onset Recorded Date/T bryon Not Specified No pertinent family history Unknown Advance Directives No Advanced Directives Records FoundDocuments on File Type Date Recorded Patient Collections Professional Expl anation Advance Directives and Living Will Latest Code Status on File Code Status Date Activated Date Inactivated Comments Full Code - Unverified 04/03/2015 3:18 PM 04/03/2015 5:3 7 PM Advance Directive Response Recorded Date/ Time Advance Directives No November 10 12:07pm Latest Code Status on File Date Activated Date Inactivated Comments 04/03/2015 3:18 PM 04/03/2015 5:37 PM Latest Code Status on File Code Status Date Activated Date Inactivated Comments Full Code - Unverified 04/03/2015 3:18 PM 04/03/2015 5:3 7 PM Advance Directive Response Recorded Date/ Time Advance Directives No November 10 11:07am History of Present Illness * Osmar Ferreira MD - 05/01/2020 3:13 PM EST Telephone Visit Via Phone Call [facility] [address] 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 female) PCP: Tomas Farrell, DO I discussed risks, benefits and alternatives of a telephone visit telemedicine consultation with the patient (and any accompanying persons) including the risks that the patient's personal health details and medical records will be discussed over real-time, synchronous, interactive audio technology,the visit will not be recorded without the express consent of both the provider and the patient, and that there are inherent diagnostic limitations compared to [id number] evaluations. We elected toproceed with the telephone visit telemedicine consultation. HPI Patient is a 70-year-old white female who is currently on Social Security income and disability. She has working diagnosis of bipolar disorder, PTSD and panic disorder with agoraphobia. She has been under my care for the last 5 years at my previous employment in [employer]. She is here tocontinue her psychiatric treatment to my care at [facility]. She is currently taking Celexa thiothixene, Ambien and trazodone and Klonopin. She is a long standing history of psychiatric illness and her recent hospitalization was around 1-1/2 years ago for breakthrough florentin as well as for possible benzo withdrawal. Since then she has done well on thiothixene and has had no brittany kthrough psychotic symptoms or manic mood states. She was last seen around 2 months ago and since then she reports baseline mood stability. Denies any significant decline in her moods or behavior since she was last seen. She reports no significant depressive mood symptoms. Denies any and anhedonia. Denied any ongoing hopelessness. Okay energy and motivation and has been able to take care of her daily ADLs and hygiene. Denies any recent falls. Sleep has been adequate most nights, is averaging around 6 to 7 hours of sleep. Appetite is within normal limits. She denies any ongoing suicidal ideation intent or plan. She does have her baseline subsyndromal manic/hypomanic mood symptoms. Does have mild pressured speech with mild baseline racing thoughts and mild psychomotor agitation. Denies any ongoing increased goal-directed activities. She does have her baseline sexual preoccupation at times. Denied any ongoing excessive spending or any other reckless or impulsive behaviors. Currently she is not experiencing any psychotic symptoms or psychotic features. She is denies any ongoing perceptual disturbances. Denies any ongoing aggressive thoughts. She was fairly engaging with the phone in order quality was fair. Currently she reports minimal withdrawal symptoms apart from mild flashbacks she is not preoccupied by or continuing by her trauma symptoms. Reports fair anxiety control Klonopin continues to help her agoraphobia as well as breakthrough panic. She denied any ongoing drug or alcohol abuse. Interpersonal issues were discussed support was provided Mood assessment: Baseline mood stability is present she still has her subsyndromal manic mood symptoms. Medication assessment. Patient has been compliant, denies any airway side effects. She wants to continue the same plan. Goals and objectives of treatment: Prevent hospitalization Prevent breakthrough florentin and psychotic symptoms. Treatment and medication compliance The following portions of the patient's history were reviewed and updated as appropriate: allergies, current medications, past family history, past medical history, past social history, past surgicalhistory and problem list. Review of Systems Review of Systems - General ROS: negative Mental status examination: Patient was cooperative, she has mild pressured speech, and reports mild baseline racing thoughts, also reports mild psychomotor agitation. She denies any ongoing suicidal ideation or plan. She denies any ongoing psychotic symptoms. Denies any perceptual disturbances. There no abnormalities of thought content or thought process except mild racing thoughts. Memory is intact, age- appropriate, okay attention and concentration, language/intellect average Patient's Medications New Prescriptions No medications on file Previous Medications ALBUTEROL (PROVENTIL HFA;VENTOLIN HFA) 90 MCG/ACTUATION INHALER Inhale 1 puff every 4 (four) hours as needed for wheezing CELECOXIB (CELEBREX) 200 MG CAPSULE Take 200 mg by mouth daily CYANOCOBALAMIN (B-12) 1,000 MCG/ML INJECTION Inject 1,000 mcg into the shoulder, thigh, or buttocksevery 30 (thirty) days CYCLOBENZAPRINE (FLEXERIL) 10 MG TABLET Take 10 mg by mouth 2 (two) times a day DIPHENHYDRAMINE-ACETAMINOPHEN (TYLENOL PM) 25-500 MG TAB Take 1 tablet by mouth nightly as needed ELIQUIS 5 MG TAB Take 5 mg by mouth daily LISINOPRIL (PRINIVIL,ZESTRIL) 20 MG TABLET Take 20 mg by mouth daily LYRICA 150 MG CAPSULE Take 150 mg by mouth 2 (two) times a day OXYCODONE-ACETAMINOPHEN (PERCOCET) 5-325 MG PER TABLET Take 1 tablet by mouth every 4 to 6 hours asneeded PANTOPRAZOLE (PROTONIX) 40 MG TABLET Take 40 mg by mouth daily PROMETHAZINE (PHENERGAN) 25 MG TABLET Take 25 mg by mouth every 8 (eight) hours Modified Medications Modified Medication Previous Medication CITALOPRAM (CELEXA) 20 MG TABLET citalopram (CELEXA) 40 MG tablet Take 1 (one) tablet (20 mg total) by mouth daily . Take 40 mg by mouth daily CLONAZEPAM (KLONOPIN) 1 MG TABLET clonazePAM (KLONOPIN) 1 MG tablet Take 1 (one) tablet (1 mg total) by mouth 3 (three) times a day . Take 1 mg by mouth 3 (three) times a day THIOTHIXENE (NAVANE) 2 MG CAPSULE thiothixene (NAVANE) 2 MG capsule Take 1 (one) capsule (2 mg total) by mouth at bedtime . Take 2 mg by mouth at bedtime . TRAZODONE (DESYREL) 150 MG TABLET traZODone (DESYREL) 150 MG tablet Take 1 (one) tablet (150 mg total) by mouth nightly . Take 150 mg by mouth nightly ZOLPIDEM (AMBIEN) 5 MG TABLET zolpidem (AMBIEN) 5 MG tablet Take 1 (one) tablet (5 mg total) by mouth nightly as needed for sleep . Take 5 mg by mouth nightly as needed Discontinued Medications DULOXETINE (CYMBALTA) 60 MG CAPSULE Take 60 mg by mouth daily Assessment/Plan: Continues to be at her baseline stability. Denies any med side effects and we will continue the same plan. No changes in her psychotropic medications. There has been no recent falls or psychiatric hospitalizations or ER visits because of mental health issues. Diagnoses and all orders for this visit: Bipolar 1 disorder, manic, mild (HCC) Post traumatic stress disorder (PTSD) Panic Disorder with Agoraphobia - clonazePAM (KLONOPIN) 1 MG tablet; Take 1 (one) tablet (1 mg total) by mouth 3 (three) times a day . Insomnia due to mental disorder - zolpidem (AMBIEN) 5 MG tablet; Take 1 (one) tablet (5 mg total) by mouth nightly as needed for sleep . Other orders - citalopram (CELEXA) 20 MG tablet; Take 1 (one) tablet (20 mg total) by mouth daily . - traZODone (DESYREL) 150 MG tablet; Take 1 (one) tablet (150 mg total) by mouth nightly . - thiothixene (NAVANE) 2 MG capsule; Take 1 (one) capsule (2 mg total) by mouth at bedtime . I have spent 20 minutes with the patient reviewing the HPI and Plan of Care. Follow-up visit in 3 months, if there are any concerns questions patient will call before. Crisis plan was reviewed they will go to the nearest ER or call the number in case of emergency AIMS: Per the patient's reports no involuntary abnormal movements have been present. 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 Chief Complaint and Reason for Visit Chief Complaint Urinating Issues unable to urinate trouble urinating abd pain, urinary issues Unable to urinate unable to urinate Chief Complaint MDD Reason for Visit Acute encephalopathy Chronic pain Chronic prescription opiate use CKD (chronic kidney disease) stage 3, GFR 30-59 ml/min Hyponatremia Major depressive disorder, recurrent, moderate Multiple fracture Open wound of right hip Polypharmacy Sleep-wake disorder Chief Complaint confusion Chief Complaint confusion mental eval Chief Complaint confusion mental eval Bipolar Disorder Bipolar Disorder Reason for Visit Major depressive dis order, recurrent, moderate Chief Complaint confusion mental eval Bipolar Disorder Bipolar Disorder mental eval Reason for Visit Major depressive dis order, recurrent, moderate Medications Administered Section Inactive Administered Medications - up to 3 most recent administrations Medication Order MAR Action Action Date Dose Rate Site gentamicin 40 mg/mL 80 mg injection 80 mg, INTRAMUSCULAR, ONCE, 1 dose, On Margarita 02/07/22 at 0830, Please document the antimicrobial indication: Prophylaxis Given 02/07/2022 8:30 AM EDT 80 mg Buttocks, Right lidocaine urojet 2 % 6 mL topical gel (XYLOCAINE, GLYDO) 6 mL, URETHRAL, ONCE, 1 dose, On Margarita 02/07/22 at 0000, FOR EXTERNAL USE ONLY Given 02/07/2022 1:09 PM EDT 6 mL Additional Source Comments INFORMATION SOURCE (unrecogn ized section and content) DATE CREATED AUTHOR 11/12/2017 [facility] DATE CREATED AUTHOR AUTHOR'S ORGANIZ ATION 06/29/2022 [facility] DATE CREATED AUTHOR AUTHOR'S ORGANIZ ATION 11/01/2022 [facility] DATE CREATED AUTHOR AUTHOR'S ORGANIZ ATION 02/04/2023 [facility] DATE CREATED AUTHOR AUTHOR'S ORGANIZ ATION 02/08/2023 [facility] [place] [facility] DATE CREATED AUTHOR AUTHOR'S ORGANIZ ATION 10/31/2023 [facility] DATE CREATED AUTHOR AUTHOR'S ORGANIZ ATION 12/11/2023 [facility] DATE CREATED AUTHOR AUTHOR'S ORGANIZ ATION 12/26/2023 [facility] DATE CREATED AUTHOR AUTHOR'S ORGANIZ ATION 01/04/2024 [facility] DATE CREATED AUTHOR AUTHOR'S ORGANIZ ATION 01/05/2024 [facility] DATE CREATED AUTHOR AUTHOR'S ORGANIZ ATION 01/13/2024 [facility] DATE CREATED AUTHOR AUTHOR'S ORGANIZ ATION 01/19/2024 [facility] DATE CREATED AUTHOR AUTHOR'S ORGANIZ ATION 01/27/2024 [facility] DATE CREATED AUTHOR AUTHOR'S ORGANIZ ATION 01/30/2024 [facility] Reason for Visit (unrecogniz ed section and content) Reason Comments Medication Management Reason Onset Date Comments Medication Refill 09/25/2020 Reason Onset Date Comments Medication Refill 04/06/2021 Reason Onset Date Comments Medication Refill 06/15/2021 Reason Onset Date Comments Medication Refill 07/16/2021 Reason Onset Date Comments Medication Refill 08/13/2021 Reason Comments Urinary Retention Reason Comments UTI Reason Comments Patient Update Reason Comments Follow Up Reason Comments Patient Question Patient's RN calling from [facility] stating that a cysto procedure was to be done on the patient, but they have not heard anything.Please advise. Reason Comments Consult Reason Comments Cystoscopy-1 Reason Comments Self Catheters/Patient Request Reason Onset Date Comments Medication Refill 02/19/2022 Reason Comments Patient Question Reason Onset Date Comments Medication Refill 04/12/2022 Reason Onset Date Comments Medication Refill 05/09/2022 Reason Comments Mcdonough Catheter Change Care Teams (unrecognized sec tion and content) Database Management System Specialist Relationship Specialty Start Date End Date Tomas Farrell DO [address] [place] [address] PCP - General Family Medicine 04/03/15 Database Management System Specialist Relationship Specialty Start Date End Date Tomas Farrell DO [address] [place] [address] PCP - General Family Medicine 04/03/15 Database Management System Specialist Relationship Specialty Start Date End Date Tomas Farrell DO [address] [place] [address] PCP - General Family Medicine 04/03/15 Database Management System Specialist Relationship Specialty Start Date End Date Tomas Farrell DO [address] [place] [address] PCP - General Family Medicine 04/03/15 Database Management System Specialist Relationship Specialty Start Date End Date Tomas Farrell DO [address] [place] [address] PCP - General Family Medicine 04/03/15 Database Management System Specialist Relationship Specialty Start Date End Date Tomas Farrell DO PCP - General Family Practice 08/26/13 Team Status: Inactive Member Role Status Dates Tomas Farrell DO Primary Care Provider Active Albino M Tupa , DO Emergency Provider Active Team Status: Inactive Member Role Status Dates Tomas Farrell , DO Primary Care Provider Active Gloria Moss PA-C Emergency Provider Active Team Status: Inactive Member Role Status Dates Tomas Farrell , DO Primary Care Provider Active Jennifer Arreaga , [facility] Emergency Provider Active Team Status: Inactive Member Role Status Dates Tomas Farrell , DO Primary Care Provider Active Maciej Rodriguez , DO Emergency Provider Active Team Status: Inactive Member Role Status Dates Tomas Farrell , DO Primary Care Provider Active King Carvajal , DO Emergency Provider Active Team Status: Inactive Member Role Status Dates Tomas Farrell , DO Primary Care Provider Active Jaxon Buchanan Jr, MD Emergency Provider Active Team Status: Active Member Role Status Dates Tomas Farrell , DO Primary Care Provider Active Database Management System Specialist Relationship Specialty Start Date End Date Tomas Farrell DO PCP - General Family Practice 08/26/13 Database Management System Specialist Relationship Specialty Start Date End Date Tomas Farrell DO [address] [address] PCP - General Family Medicine 04/03/15 Database Management System Specialist Relationship Specialty Start Date End Date Tomas Farrell DO PCP - General Family Practice 08/26/13 Database Management System Specialist Relationship Specialty Start Date End Date Tomas Farrell DO PCP - General Family Practice 08/26/13 Database Management System Specialist Relationship Specialty Start Date End Date Tomas Farrell DO PCP - General Family Practice 08/26/13 Database Management System Specialist Relationship Specialty Start Date End Date Tomas Farrell DO PCP - General Family Practice 08/26/13 Database Management System Specialist Relationship Specialty Start Date End Date Tomas Farrell DO PCP - General Family Practice 08/26/13 Database Management System Specialist Relationship Specialty Start Date End Date Tomas Farrell DO PCP - General Family Practice 08/26/13 Database Management System Specialist Relationship Specialty Start Date End Date Tomas Farrell DO PCP - General Family Medicine 08/26/13 Database Management System Specialist Relationship Specialty Start Date End Date Tomas Farrell DO PCP - General Family [facility] 08/26/13 [address]ora [address] [place] [address] Anesthesiology 03/07/22 Database Management System Specialist Relationship Specialty Start Date End Date Tomas Farrell DO PCP - [facility] 08/26/13 [address] [place] [address] Anesthesiology 03/07/22 Team Status: Inactive Member Role Status Dates Tomas Farrell DO Primary Care Provider Active Merary De MD Admit Provider, Attending Pr ovider Active Monica Gomez NP Other Provider Active JOSE ROBERTO HarrisC Other Provider Active Clark Hernandez MD Other Provider Active Jaxon Arzola MD Other Provider Active Database Management System Specialist Relationship Specialty Start Date End Date Tomas Farrell DO [address] [place] [address] PCP - General Family Medicine 04/03/15 Database Management System Specialist Relationship Specialty Start Date End Date Tomas Farrell DO PCP - General [facility] 08/26/13 Nora [address]cc[address] [place] [address] Anesthesiology 03/07/22 Database Management System Specialist Relationship Specialty Start Date End Date Tomas Farrell DO [address] [place] [address] PCP - General Family Medicine 04/03/15 Database Management System Specialist Relationship Specialty Start Date End Date Tomas Farrell DO PCP - General Family Medicine 08/26/13 [address] [place] [address] Anesthesiology 03/07/22 Dolly Valenzuela [address] [place] [phone] Referring Family Medicine 01/03/23 Database Management System Specialist Relationship Specialty Start Date End Date Tomas Farrell DO PCP - General Family Medicine 08/26/13 Nora [address]cc[address]um [address] [place] [address] Anesthesiology 03/07/22 Dolly Valenzuela [address] [place] [phone] Referring Family Medicine 01/03/23 Database Management System Specialist Relationship Specialty Start Date End Date Tomas Farrell DO PCP - General Family Medicine 08/26/13 Nora [address]cc[address]um [address] [place] [address] Anesthesiology 03/07/22 Dolly Valenzuela [address] [place] [address] Referring Family Medicine 01/03/23 Database Management System Specialist Relationship Specialty Start Date End Date Jayant Yuan MD [address] [place] [address] PCP - General Psychiatry 11/30/18 Team Status: Active Member Role Status Dates Dolly Valenzuela Primary Care Provider Active Team Status: Inactive Member Role Status Dates Bebe Ortiz APRN Emergency Provider Active Start: July 05, 2023 End: July 05, 2023 Dolly Valenzuela Primary Care Provider Active Star t: July 05, 2023 End: July 05, 2023 Team Status: Active Member Role Status Dates Services [facility] Primary Care Provider Active Team Status: Inactive Member Role Status Dates Services [facility] Primary Care Provider Active Start: August 22, 2023 End: August 22, 2023 Senthil Torres PA-C Emergency Provider Active Start: August 22, 2023 End: August 22, 2023 Team Status: Active Member Role Status Dates PHYSICIAN NO FAMILY Primary Care Provider Active Team Status: Inactive Member Role Status Dates Julian Arechiga MD Admit Provider, Atte nding Provider Active Start: August 27, 2023 End: September 02, 2023 PHYSICIAN NO FAMILY Primary Care Provider Active Start: August 27, 2023 End: September 02, 2023 Team Status: Active Member Role Status Dates Julian Arechiga MD Admit Provider, Atte nding Provider, Other Provider Active Start: August 28, 2023 PHYSICIAN NO FAMILY Primary Care Provider Active Start: August 28, 2023 Team Status: Inactive Member Role Status Dates Maciej Rodriguez DO Emergency Provider Active Sta rt: September 06, 2023 End: September 06, 2023 Dolly Valenzuela Primary Care Provider Active Star t: September 06, 2023 End: September 06, 2023 Source Comments (unrecognize d section and content) In the event this informatio n is protected by the Federal Confidentiality of Alcohol and Drug Abuse Patient Records regulations: The Federal rules restrict any use of the information to criminally investigate or prosecute any alcohol or drug abuse patient.[facility]In the event this information is protected by the Federal Confidentiality of Alcohol and Drug Abuse Patient Records regulations: The Federal rules restrict any use of the information to criminally investigate or prosecute any alcohol or drug abuse patient.[facility] HospitalIn the event this information is protected by the Federal Confidentiality of Alcohol and Drug Abuse Patient Records regulations: The Federal rules restrict any use of the information to criminally investigate or prosecute any alcohol or drug abuse patient.[facility] HospitalIn the event this information is protected by the Federal Confidentiality of Alcohol and Drug Abuse Patient Records regulations: The Federal rules restrict any use of the information to criminally investigate or prosecute any alcohol or drug abuse patient.[facility] HospitalIn the event this information is protected by the Federal Confidentiality of Alcohol and Drug Abuse Patient Records regulations: The Federal rules restrict any use of the information to criminally investigate or prosecute any alcohol or drug abuse patient.[facility] HospitalIn the event this information is protected by the Federal Confidentiality of Alcohol and Drug Abuse Patient Records regulations: The Federal rules restrict any use of the information to criminally investigate or prosecute any alcohol or drug abuse patient.[facility] HospitalIn the event this information is protected by the Federal Confidentiality of Alcohol and Drug Abuse Patient Records regulations: The Federal rules restrict any use of the information to criminally investigate or prosecute any alcohol or drug abuse patient.[facility] HospitalIn the event this information is protected by the Federal Confidentiality of Alcohol and Drug Abuse Patient Records regulations: The Federal rules restrict any use of the information to criminally investigate or prosecute any alcohol or drug abuse patient.[facility] HospitalIn the event this information is protected by the Federal Confidentiality of Alcohol and Drug Abuse Patient Records regulations: The Federal rules restrict any use of the information to criminally investigate or prosecute any alcohol or drug abuse patient.[facility] HospitalIn the event this information is protected by the Federal Confidentiality of Alcohol and Drug Abuse Patient Records regulations: The Federal rules restrict any use of the information to criminally investigate or prosecute any alcohol or drug abuse patient.[facility] HospitalIn the event this information is protected by the Federal Confidentiality of Alcohol and Drug Abuse Patient Records regulations: The Federal rules restrict any use of the information to criminally investigate or prosecute any alcohol or drug abuse patient.[facility] HospitalIn the event this information is protected by the Federal Confidentiality of Alcohol and Drug Abuse Patient Records regulations: The Federal rules restrict any use of the information to criminally investigate or prosecute any alcohol or drug abuse patient.[facility] HospitalIn the event this information is protected by the Federal Confidentiality of Alcohol and Drug Abuse Patient Records regulations: The Federal rules restrict any use of the information to criminally investigate or prosecute any alcohol or drug abuse patient.[facility] HospitalIn the event this information is protected by the Federal Confidentiality of Alcohol and Drug Abuse Patient Records regulations: The Federal rules restrict any use of the information to criminally investigate or prosecute any alcohol or drug abuse patient.[facility] HospitalIn the event this information is protected by the Federal Confidentiality of Alcohol and Drug Abuse Patient Records regulations: The Federal rules restrict any use of the information to criminally investigate or prosecute any alcohol or drug abuse patient.[facility] HospitalIn the event this information is protected by the Federal Confidentiality of Alcohol and Drug Abuse Patient Records regulations: The Federal rules restrict any use of the information to criminally investigate or prosecute any alcohol or drug abuse patient.[facility] HospitalIn the event this information is protected by the Federal Confidentiality of Alcohol and Drug Abuse Patient Records regulations: The Federal rules restrict any use of the information to criminally investigate or prosecute any alcohol or drug abuse patient.[facility] HospitalIn the event this information is protected by the Federal Confidentiality of Alcohol and Drug Abuse Patient Records regulations: The Federal rules restrict any use of the information to criminally investigate or prosecute any alcohol or drug abuse patient.[facility] HospitalIn the event this information is protected by the Federal Confidentiality of Alcohol and Drug Abuse Patient Records regulations: The Federal rules restrict any use of the information to criminally investigate or prosecute any alcohol or drug abuse patient.[facility] HospitalIn the event this information is protected by the Federal Confidentiality of Alcohol and Drug Abuse Patient Records regulations: The Federal rules restrict any use of the information to criminally investigate or prosecute any alcohol or drug abuse patient.[facility] HospitalIn the event this information is protected by the Federal Confidentiality of Alcohol and Drug Abuse Patient Records regulations: The Federal rules restrict any use of the information to criminally investigate or prosecute any alcohol or drug abuse patient.[facility] HospitalIn the event this information is protected by the Federal Confidentiality of Alcohol and Drug Abuse Patient Records regulations: The Federal rules restrict any use of the information to criminally investigate or prosecute any alcohol or drug abuse patient.[facility] Goals (unrecognized section and content) Goals may be documented in a n alternate section FOR RECORDS PERTAINING TO PATIENTS WHO ARE OR HAVE BEEN ENROLLED IN A CHEMICAL DEPENDENCY/SUBSTANCEABUSE PROGRAM, SOME INFORMATION MAY BE OMITTED. This clinical summary was aggregated from multiple sources. Caution should be exercised in using it in the provision of clinical care. This summary normalizes information from multiple sources, and as a consequence, information in this document may materially change the coding, format and clinical context of patient data. In addition, data may be omitted in some cases. CLINICAL DECISIONS SHOULD BE BASED ON THE PRIMARY CLINICAL RECORDS. [employer] [facility] provides no warranty or guarantee of the accuracy or completeness of information in this document.
== END 2024-01-31 13:48 | disposition home or self-care (01) ==
LOC: ER 13:46
PROVIDERS: Emergency Provider Emergency Medicine; PCP Nurse Practitioner Family
DX: R34 Anuria and oliguria (principal); F17.200 Nicotine dependence, unspecified, uncomplicated
CPT/HCPCS: 36415; 80053; 81001; 85025; 99283

== ENCOUNTER 2024-02-07 11:19 | Emergency (ER) | payer MEDICARE, MEDICAID, SELFPAY ==
[2024-02-07 11:26] VITALS: BP 102/67; PULSE 71; TEMP 36.7; O2SAT 94; BMI 26.2
--- OUTSIDE RECORDS SUMMARY | 2024-02-07 11:35 | XMS_ITS | CCD ---
Author Organization [facility]iniSy[facility] Care Team Providers Care Day Care Aide Name Role Phone JESIKA, JAMES Yesenia Unavailable Unavailable SELF, REFERRED Unavailable Unavailable STORMY JAMES Unavailable Unavailable TOMAS FARRELL Unavailable Unavailable Tomas Farrell Primary Care Provider Tomas Farrell DO Primary Care Provider Tomas Farrell DO Primary Care Provider Tomas FARRELL Primary Care Physician [phone] Cady Montoya Unavailable Unavailable Zahira Flores Unavailable Unavailable Alka Tony Unavailable Unavailable Tomas Farrell DO Primary Care Provider DO Tomas Farrell Primary Care Provider DO Maciej Rodriguez Emergency Provider Gibson [facility] Jennifer Mcclain Emergency Provider [phone] CARSON Moss Emergency Provider [phone] MD Jaxon Buchanan Jr Emergency Provider DO King Carvajal Emergency Provider [phone] DO Albino Ballard Emergency Provider Tomas Farrell DO Primary Care Provider Erica Freeman Unavailable Unavailable Tomas Farrell DO Primary Care Provider Emilia Barrera Unavailable Unavailable Jose Tomas GO Primary Care Provider Nora Mccallum Unavailable Jose GO, Tomas Guerrier Primary Care Provider Jose GO, Tomas Guerrier Primary Care Provider Nora Mccallum Unavailable Jose, DO Tomas Guerrier Primary Care Provider MD Merary De Admit Provider MD Merary De Attending Provider [phone] JONAH Gomez Other Provider FARHANA Toro Other Provider MD Clark Hernandez Other Provider MD Jaxon Arzola Other Provider TOMAS FARRELL Primary Care Unavailable GEHLOT, UPENDER Attending Unavailable JOSE, TOMAS Guerrier Primary Care Unavailable GEHLOT, UPENDER Attending Unavailable GEHLOT, GINGERENDER Attending Unavailable JOSE, TOMAS Guerrier Primary Care Unavailable JOSE, TOMAS Guerrier Primary Care Unavailable GEHLOT, UPENDER Attending Unavailable Clark Hernandez Unavailable URIEL .LULA Consulting Unavailabl e JOSE, DR TOMAS Guerrier Primary Care Unavailable GRIFFIN ., DR ROSAS Attending Unavailable GRIFFIN ., DR ROSAS Admitting Unavailable JOSE, DR TOMAS Guerrier Primary Care Unavailable SPRING RUN, DR JOSE Edouard Consulting Unavailable ELIZABETH HERNANDEZ Admitting Unavailable HIGHLANDER, ELIZABETH Griffin Attending Unavailable ELIZABETH HERNANDEZ Consulting Unavailable MISC, DR MACDONALD Admitting Unavailable MISC, DR MACDONALD Attending Unavailable MISC, DR MACDONALD Consulting Unavailable MISC, DR MACDONALD Primary Care Unavailable MISC, DR MACDONALD Primary Care Unavailable YAAKOV HERZOG Admitting Unavailable YAAKOV HERZOG Attending Unavailable URIEL ., LULA ARMANDO Consulting Unavailabl e YAAKOV HERZOG Consulting Unavailable PAY ., DR GUZMÁN Admitting Unavailable MISC, DR MACDONALD Primary Care Unavailable PAY ., DR GUZMÁN Attending Unavailable PAY ., DR GUZMÁN Consulting Unavailable URIEL ., LULA ARMANDO Consulting Unavailabl e MISC, DR MACDONALD Primary Care Unavailable YAAKOV HERZOG Admitting Unavailable YAAKOV HERZOG Attending Unavailable JORGE WOODS Consulting Unavailable JOSE, DR TOMAS Guerrier Primary Care Unavailable GRIFFIN Russo, DR ROSAS Admitting Unavailable GRIFFIN Russo, DR ROSAS Attending Unavailable GRIFFIN Russo, DR ROSAS Consulting Unavailable JOSE, DR TOMAS Guerrier Primary Care Unavailable YAAKOV HERZOG Admitting Unavailable YAAKOV HERZOG Attending Unavailable Tomas FARRELL Primary Care Physician [phone] NONE, XXXX Primary Care Physician Unavailab Dolly Neff Unavailable Dolly Valenzuela Primary Care Physician Tomas Farrell DO Primary Care Provider Kwabena RAMOS, [facility] Primary Care Provider [phone] TOMAS FARRELL Primary Care Unavailable FRANTZ CURRAN Attending Unavailable TOMAS FARRELL Primary Care Unavailable TOMAS FARRELL Primary Care Unavailable QUYNH HERNANDEZ Attending Unavailable FRANTZ CURRAN Referring [facility] Primary Care Unavailable MONSE ALCOCER Referring Unavailable KWABENA, [facility] Primary Care Unavailable ISAI ALFONSO Referring Unavailable SVITLANA Ortiz Emergency Provider [phone] Dolly Valenzuela Primary Care Provider [phone] AZUL BATEMAN Primary Care Physician SVITLANA Ortiz Emergency Provider Dolly Valenzuela Primary Care Provider [facility] Primary Care Provider [phone] CARSON Torres Emergency Provider MD Julian Arechiga Admit Provider [phone] MD Hawk Julian Attending Provider NO FAMILY, PHYSICIAN Primary Care Provider Unava ilable DO Maciej Rodriguez Emergency Provider Senthil Torres Attending Unavailable [facility] Primary Care Unavaila ble Senthil Torres Admitting Unavailable Maciej Rodriguez Admitting Unavailable Maciej Rodriguez Attending Unavailable Dolly Valenzuela Primary Care Unavailable Tomas Farrell Primary Care Unavailable Rogelio De Admitting Unavailab le Rogelio De Attending Unavailab le Hawk, Julian Admitting Unavailable Hawk, Julian Attending Unavailable NO FAMILY, PHYSICIAN Primary Care Unavailable Dolly Valenzuela L Primary Care Unavailable SaffleBebe N Admitting Unavailable Saffle, Bebe N Attending Unavailable AZUL BATEMAN Primary Care Unavailable Black, Basem G. Attending Unavailable Black, Basem G. Referring Unavailable AZUL BATEMAN Primary Care Unavailable SLINGWINE, JAMILAH L. Admitting Unavailable SLINGWINE, JAMILAH L. Attending Unavailable AZUL BATEMAN Primary Care Unavailable AZUL BATEMAN Attending Unavailable AZUL BATEMAN Admitting Unavailable Meg Rebolledo V Unavailable Unavailable Didier Hooks Attending Unavailable Black, Basem G. Attending Unavailable KYA BATEMAN Primary Care Unavail able Black, Basem G. Attending Unavailable KYA BATEMAN Referring Unavail able FRANSICO, KYA Cruz Primary Care Unavail able Johny Willson Attending Unavailable FRANSICO, KYA Cruz Admitting Unavail able FRANSICO, KYA Cruz Attending Unavail able FRANSICO, KYA Cruz Primary Care Unavail able SLINGWINE, JAMILAH L. Admitting Unavailable SLINGWINE, JAMILAH L. Attending Unavailable SLINGWINE, JAMILAH L. Admitting Unavailable SLINGWINE, JAMILAH L. Attending Unavailable Amarilis Gold Attending Unavailable KYA BATEMAN Primary Care Unavail able Black, Basem G. Attending Unavailable Black, Basem G. Referring Unavailable FRANSICO, KYA Cruz Primary Care Unavail able FRANSICO, KYA Cruz Admitting Unavail able FRANSICO, KYA Cruz Attending Unavail able FRANSICO, KYA Cruz Primary Care Unavail able FRANSICO, KYA Cruz Primary Care Unavail able Ana Gandhi Admitting Unavailable Jony SEE Attending Unavailable Santiago Harrington Attending Unavailable Mati Taylor Attending Unavailable Mati Taylor Attending Unavailable Johny Willson Attending Unavailable KYA BATEMAN Primary Care Unavail able FRANSICO, KYA Cruz Primary Care Unavail able Johny Willson Attending Unavailable Johny Willson Attending Unavailable FRANSICO, KYA Cruz Primary Care Unavail able Johny Willson Attending Unavailable Onofre, Chandan Attending Unavailable Onofre, Chandan Attending Unavailable Mati Taylor Attending Unavailable BordnAmarilis chase Attending Unavailable Amarilis Gold Admitting Unavailable FRANSICO, AZUL Primary Care Unavailable FRANSICO, AZUL Primary Care Unavailable JAMILAH TURNER Attending Unavailable JAMILAH TURNER Admitting Unavailable Pocos, Jose Staton Admitting Unavailable Pocos, Jose Staton Attending Unavailable FRANSICO, AZUL Primary Care Unavailable DO CECI REYES Attending Unavailable AMY, DO ORNELAS Admitting Unavailable FRANSICO, AZUL Primary Care Unavailable DokkDO Mati banegas Attending Unavailable FRANSICO, AZUL Primary Care Unavailable FRANSICO, AZUL Primary Care Unavailable Didier Hooks Attending Unavailable Pocos, Jose Staton Attending Unavailable PocosJose Admitting Unavailable FRANSICO, AZUL Primary Care Unavailable POCOS, JOSE Staton Attending Unavailable POCOS, JOSE Staton Referring Unavailable POCOS, JOSE Staton Attending Unavailable POCOS, JOSE Staton Referring Unavailable POCOS, JOSE Staton Attending Unavailable OnofreChandan Attending Unavailable FRANSICO, AZUL Primary Care Unavailable Allergies Allergy Classification Reported Allergen(s) Allergy Type Date of Onset Reaction(s) Facility Acetaminophen / HYDROcodone (2 sources) Acetaminophen / HYDROcodone Drug Allergy 04-03-20 15 [facility] Anti-Epileptic Agents (2 sources) gabapentin Drug Allergy 05-01-20 Unknown [facility] Bacitracin (2 sources) Bacitracin Drug Allergy 09-28-19 18 Swelling, Unknown [facility] Butorphanol (2 sources) Butorphanol Drug Allergy 05-01-20 20 [facility] Haloperidol (2 sources) Haloperidol Drug Allergy 08-30-19 11 Shortness Of Breath [facility] Methylphenidate (2 sources) Methylphenidate Drug Allergy 05-01-20 20 Unknown [facility] Mirtazapine (2 sources) Mirtazapine Drug Allergy 05-01-20 20 Unknown [facility] Opioid Agonists (4 sources) fentaNYL Drug Allergy 09-17-19 15 Swelling [facility] Penicillins (antibiotic) (2 sources) Phenothiazine Drug Allergy 08-28-19 11 Shortness Of Breath [facility] Pentoxifylline (2 sources) Pentoxifylline Drug Allergy 08-17-19 20 [facility] Prochlorperazine (2 sources) Prochlorperazine Drug Allergy 04-03-20 15 [facility] QUEtiapine (2 sources) QUEtiapine Drug Allergy 05-01-20 20 Unknown [facility] risperiDONE (2 sources) risperiDONE Drug Allergy 05-01-20 Unknown [facility] Shellfish (2 sources) Shellfish Food Allergy 09-28-19 18 [facility] Valproate (2 sources) Valproate Drug Allergy 05-01-20 [facility] (8 sources) bacitracin; Translations: [BACITRACIN] Drug Allergy 09-28-19 18 [facility] (1 source) bacitracin / neomycin / polymyxin b Drug Allergy 09-28-19 18 [facility] (6 sources) butorphanol; Translations: [Stadol] Drug Allergy 09-28-19 18 [facility] (8 sources) methadone; Translations: [METHADONE] Drug Allergy 09-17-19 15 [facility] (15 sources) Phenothiazine; Translations: [PHENOTHIAZINES] Drug allergy (disorder) 08-28-19 11 Shortness Of Breath [facility] (7 sources) prochlorperazine Drug Allergy 09-28-19 18 [facility], Unknown Reaction [facility] (20 sources) Shellfish; Translations: [SHELLFISH DERIVED] Drug allergy (disorder) 09-28-19 18 Other: See Comments [facility] (1 source) pulse ox probe/tape; Translations: [pulse ox probe/tape] Propensity to adverse reactions (disorder) 09-29-19 18 [facility] (20 sources) Acetaminophen / HYDROcodone; Translations: [HYDROCODONE-ACETAM INOPHEN] Drug Allergy 04-03-20 15 Other: See Comments [facility] (20 sources) Bacitracin; Translations: [bacitracin] Drug Allergy 09-28-19 18 Swelling, Unknown [facility] (20 sources) Butorphanol; Translations: [butorphanol] Drug Allergy 12-07-20 20 delusions [facility] (20 sources) fentaNYL; Translations: [FENTANYL] Drug Allergy 11-11-19 20 Other: See Comments [facility] (20 sources) gabapentin; Translations: [gabapentin] Drug Allergy 05-01-20 20 Unknown, Unknown (qualifier value) [facility] (20 sources) Haloperidol; Translations: [haloperidol] Drug Allergy 08-30-19 11 Shortness Of Breath [facility] (20 sources) Methadone; Translations: [methadone] Drug Allergy 09-17-19 15 Swelling [facility] (20 sources) Methylphenidate; Translations: [methylphenidate] Drug Allergy 05-01-20 20 Unknown, Unknown (qualifier value) [facility] (20 sources) Mirtazapine; Translations: [mirtazapine] Drug Allergy 05-01-20 20 Unknown, Unknown (qualifier value) [facility] (16 sources) Pentoxifylline; Translations: [PENTOXIFYLLINE] Drug Allergy 08-17-19 20 [facility] (20 sources) Prochlorperazine; Translations: [PROCHLORPERAZINE EDISYLATE] Drug Allergy 08-28-19 11 Unknown [facility] (20 sources) QUEtiapine; Translations: [quetiapine] Drug Allergy 05-01-20 20 Unknown, Unknown (qualifier value) [facility] (20 sources) risperiDONE; Translations: [risperidone] Drug Allergy 05-01-20 20 Unknown, Unknown (qualifier value) [facility] (16 sources) Valproate; Translations: [DIVALPROEX SODIUM] Drug Allergy 05-01-20 20 [facility] (11 sources) Phenothiazine Propensity to adverse reactions to drug 08-28-19 11 Shortness Of Breath [facility] (20 sources) Prochlorperazine; Translations: [prochlorperazine] Drug Allergy anaphylaxis [facility] (20 sources) Shellfish; Translations: [shellfish] Food allergy [facility] (20 sources) Valproate; Translations: [divalproex sodium] Drug Allergy unsteady [facility] Comment on above: causes her to be uns teady causes her to be uns teady (20 sources) Adhesive Tape; Translations: [ADHESIVE TAPE (ROSINS)] Allergy to substance 08-30-19 11 Rash [facility] (20 sources) Haloperidol; Translations: [HALOPERIDOL LACTATE] Drug Allergy 08-30-19 11 Shortness of Breath [facility] (7 sources) oxyCODONE; Translations: [oxycodone] Drug Allergy 10-05-19 Unknown Reaction [facility] (7 sources) Thiothixene; Translations: [thiothixene] Drug Allergy 10-05-19 Unknown Reaction [facility] (20 sources) Cephalexin; Translations: [CEPHALEXIN] Drug Allergy 12-05-19 22 Anaphylaxis [facility] Work Phone: (20 sources) Phenothiazine Drug Allergy 08-28-19 11 Shortness of Breath [facility] (1 source) acetophenazine Drug Allergy 04-10-20 [facility] Rep[facility] (1 source) Cephalexin Drug Allergy [facility] (2 sources) Prochlorperazine Drug Allergy [facility] (1 source) fentaNYL Drug Allergy 08-22-19 [facility] (1 source) Phenothiazine Drug allergy (disorder) 08-22-19 [facility] (1 source) Prochlorperazine Drug Allergy 08-22-19 [facility] (5 sources) Bacitracin / Neomycin / Polymyxin B; Translations: [Neosporin] Drug Allergy [facility] (5 sources) gabapentin; Translations: [Neurontin] Drug Allergy [facility] (5 sources) Haloperidol; Translations: [Haldol] Drug Allergy [facility] (5 sources) Methylphenidate; Translations: [Ritalin] Drug Allergy [facility] (5 sources) Mirtazapine; Translations: [Remeron] Drug Allergy [facility] (5 sources) Naloxone; Translations: [Narcan] Drug Allergy [facility] (5 sources) QUEtiapine; Translations: [SEROquel] Drug Allergy [facility] (5 sources) risperiDONE; Translations: [RisperDAL] Drug Allergy [facility] (5 sources) Valproate; Translations: [Depakote] Drug Allergy [facility] Repository Medications Current Medications Medication Drug Class(es) Dates Sig (Normalized) Sig (Original) acetaminophen 325 mg oral tablet (20 sources) Start: 10-18-2021 take 2 tablets by mouth every four [...] for 3 day(s), 12 tab(s), Refill(s) 0, [facility]/pharmacy #[id number], 162, cm, 01/10/24 20:56:00 EDT, Height/Length Dosing, 61, kg, 01/10/24 20:56:00 EDT, Weight Dosing Start Date: 01/10/24 Stop Date: 01/13/24 Status: Ordered Start: 03-24-2015 take 1 tablet by cachorro th every four hours as needed oxyCODONE-acetaminophen (PERCOCET) 5-325 mg per tablet Take 1 tablet by mouth every 4 to 6 hours as needed 0 03/24/2015 Active [id number] 200 actuat albuterol 0.09 mg/actuat metered dose [...] mL, Inhalation, QID, 360 mL, Refill(s) 1, [facility]/pharmacy #[id number], 180.3, cm, 03/20/21 9:01:00 EDT, Height/Length Dosing, 65.6, kg, 03/20/21 8:59:00 EDT, Weight Dosing Start Date: 05/02/21 Status: Ordered albuterol HFA 90 mcg/inh MDI (20 sources) Start: 08-13-2020 take 2 puff(s) by inhalation four times daily for wheezing albuterol HFA 90 mcg/inh MDI 2 puff(s), Inhalation, QID for wheezing, 6.7 gram, Refill(s) 0, [id number], 180.3, cm, 08/11/20 1:10:00 EDT, Height/Length [...] Daily, # 90 tab(s), Refills(s) 3, Pharmacy: [facility]/pharmacy #[id number], 154.9, cm, 12/20/21 13:56:00 EDT, Height/Length [...] day(s), # 14 cap(s), Refills(s) 0, Pharmacy: [facility]/pharmacy #[id number], 155, cm, 08/09/23 23:21:00 EDT, Height/Length Dosing, 67.6, kg, 08/09/23 23:21:00 EDT, Weight Dosing Start Date: 08/10/23 Stop Date: 08/17/23 Status: Ordered Start: 07-05-2023 End: 08-22-2023 take 500 mg by mouth three times daily Cephalexin Discontinued 500 MG PO Three times daily 30 July 05, 2023 1:00am August 22, 2023 1:35pm Start: 03-04-2022 End: 03-09-2022 take 1 capsule by mouth every twelve hours cephalexin 500 mg Cap 500 mg = 1 cap(s), Oral, q12hr, X 5 day(s), # 10 cap(s), Refills(s) 0, Pharmacy: [facility]/pharmacy #[id number], 154, cm, 03/04/22 13:21:00 EDT, Height/Length Dosing, 57, kg, 03/04/22 13:21:00 EDT, Weight Dosing Start Date: 03/04/22 Stop Date: 03/09/22 Status: Ordered Start: 11-17-2021 take 1 capsule by [facility] every twelve hours Keflex 500 mg Cap 500 mg = 1 cap(s), Oral, q12hr, # 20 cap(s), Refills(s) 0, Pharmacy: [facility]/pharmacy #[id number], 157, cm, 11/16/21 15:24:00 EDT, Height/Length [...] Ordered Start: 07-15-2021 take 1 capsule by [facility] every twelve hours cephalexin 500 mg Cap 500 mg = 1 cap(s), Oral, q12hr, # 14 cap(s), Refills(s) 0, Pharmacy: [id number], 155, cm, 07/15/21 13:55:00 EST, Height/Length Dosing, 67, kg, 07/15/21 13:55:00 EST, Weight Dosing Start Date: 07/15/21 Status: Ordered ciprofloxacin 250 mg oral tablet (20 sources) Quinolone Antimicrobial Start: 08-10-2023 End: 08-17-2023 take 1 tablet by mouth every twelve hours Cipro 250 mg Tab 250 mg = 1 tab(s), Oral, q12hr, X 7 day(s), # 14 tab(s), Refills(s) 0, Pharmacy: [facility]/pharmacy #[id number], 155, cm, 08/09/23 23:21:00 EDT, Height/Length Dosing, 67.6, kg, 08/09/23 23:21:00 EDT, Weight Dosing Start Date: 08/10/23 Stop Date: 08/17/23 Status: Ordered Start: 11-16-2021 End: 11-23-2021 take 1 tablet by mouth every twelve hours Cipro 250 mg Tab 250 mg = 1 tab(s), Oral, q12hr, X 7 day(s), # 14 tab(s), Refills(s) 0, Pharmacy: [facility]/pharmacy #[id number], 157, cm, 11/16/21 15:24:00 EDT, Height/Length Dosing, 60, kg, 11/16/21 15:24:00 EDT, Weight Dosing Start Date: 11/16/21 Stop Date: 11/23/21 Status: Ordered Start: 11-07-2021 End: 11-14-2021 take 1 tablet by mouth every twelve hours Cipro 250 mg Tab 250 mg = 1 tab(s), Oral, q12hr, X 7 day(s), # 14 tab(s), Refills(s) 0, Pharmacy: [facility]/pharmacy #[id number], 157, cm, 11/07/21 8:56:00 EDT, Height/Length Dosing, 59.9, kg, 11/07/21 8:56:00 EDT, Weight Dosing Start Date: 11/07/21 Stop Date: 11/14/21 Status: Ordered Start: 09-07-2021 take 1 tablet by cachorro th twice daily Cipro 500 mg Tab 500 mg = 1 tab(s), Oral, BID, # 14 tab(s), Refills(s) 0, Pharmacy: [facility]/pharmacy #[id number], 157, cm, 09/07/21 5:48:00 EDT, Height/Length [...] diarrhea, # 60 cap(s), Refills(s) 0, Pharmacy: [facility]/pharmacy #[id number], 155, cm, 12/16/21 7:46:00 EDT, Height/Length [...] mL, Inhalation, QID, 360 mL, Refill(s) 1, [facility]/pharmacy #[id number], 180.3, cm, 03/20/21 9:01:00 EDT, Height/Length Dosing, 65.6, kg, 03/20/21 8:59:00 EDT, Weight Dosing Start Date: 05/02/21 Status: Ordered famotidine 20 mg oral tablet (6 sources) Histamine-2 Receptor Antagonist Start: End: take 1 tablet by mouth once daily famotidine 20 mg Tab 20 mg = 1 tab(s), Oral, Daily, X 30 day(s), # 30 tab(s), Refills(s) 0, Pharmacy: [facility]/pharmacy #[id number], 155, cm, 02/03/22 10:02:00 EDT, Height/Length Dosing, 58.8, kg, 02/04/22 7:14:00 EDT, Weight Dosing Start Date: 02/05/22 Stop Date: 03/07/22 Status: Ordered ferrous sulfate 325 mg oral tablet (20 sources) Start: take 1 tablet by mouth three times daily ferrous sulfate 325 mg Tab 325 mg = 1 tab(s), Oral, TID, # 90 tab(s), Refills(s) 0, Pharmacy: [facility]/pharmacy #[id number], 155, cm, 12/16/21 7:46:00 EDT, Height/Length Dosing, 60.4, kg, 12/16/21 7:46:00 EDT, Weight Dosing Start Date: 12/17/21 Status: Ordered Comment on above: Take by mouth. fluticasone propionate 0.05 mg/actuat metered dose nasal spray (20 sources) Corticosteroid Start: fluticasone 0.05 mg/inh Nasal [place] 2 spray(s), Nasal, Daily, 1 EA, Refill(s) 5, each nostril, [facility]/pharmacy #[id number], 157, cm, 11/17/21 17:26:00 EDT, Height/Length Dosing, 60, kg, 11/17/21 17:26:00 EDT, Weight Dosing Start Date: 11/21/21 Status: Ordered Start: 09-08-2021 Fluticasone Pr opionate Active 2 SPRAY INTRANASAL Daily September 08, 2021 12:00am each nares Start: 05-28-2021 fluticasone 0. 05 mg/inh Nasal [place] 2 spray(s), Nasal, Daily, 1 EA, Refill(s) 5, each nostril, [facility]/pharmacy #[id number], 157, cm, 05/26/21 11:56:00 EST, Height/Length Dosing, 66, kg, 05/26/21 11:56:00 EST, Weight Dosing Start Date: 05/28/21 Status: Ordered fluticasone 0.05 mg/inh Nasa l [place] (20 sources) Start: 11-21-2021 fluticasone 0. 05 mg/inh Nasal [place] 2 spray(s), Nasal, Daily, 1 EA, Refill(s) 5, each nostril, [facility]/pharmacy #[id number], 157, cm, 11/17/21 17:26:00 EDT, Height/Length Dosing, 60, kg, 11/17/21 17:26:00 EDT, Weight Dosing Start Date: 11/21/21 Status: Ordered Start: 05-28-2021 fluticasone 0. 05 mg/inh Nasal [place] 2 spray(s), Nasal, Daily, 1 EA, Refill(s) 5, each nostril, [facility]/pharmacy #[id number], 157, cm, 05/26/21 11:56:00 EST, Height/Length [...] day(s), # 10 tab(s), Refills(s) 0, [id number], cm, 03/04/22 13:21:00 EDT, Height/Length [...] Daily, # 255 gram, Refills(s) 1, Pharmacy: [facility]/pharmacy #[id number], 155, cm, 02/25/20 9:42:00 EDT, Height/Length Dosing, 69.9, kg, 02/25/20 9:42:00 EDT, Weight Dosing Start Date: 02/26/20 Status: Ordered mupirocin 0.02 mg/mg topical ointment (20 sources) RNA Synthetase Inhibitor Antibacterial Start: 05-24-2022 End: 06-11-2022 mupirocin Top 2% Oint 1 ramila, Topical, TID, 22 gram, Refill(s) 0, [facility]/pharmacy #[id number], 155, cm, 05/24/22 13:37:00 EST, Height/Length Dosing, 58, kg, 05/24/22 13:37:00 EST, Weight Dosing Start Date: 05/24/22 Status: Ordered naloxone hydrochloride 40 mg/ml nasal spray (9 sources) Opioid Antagonist Start: 07-17-2021 naloxone (NARCAN) 4 mg/actuation [place] Administer 1 spray into one nostril for [...] day(s), # 14 cap(s), Refills(s) 0, Pharmacy: [facility]/pharmacy #[id number], 165, cm, 10/20/21 7:35:00 EDT, Height/Length Dosing, 63, kg, 10/20/21 7:35:00 EDT, Weight Dosing Start Date: 10/20/21 Stop Date: 10/27/21 Status: Ordered Start: 09-06-2021 End: 09-20-2021 take 1 capsule by mouth twice daily Macrobid 100 mg Cap 100 mg = 1 cap(s), Oral, BID, X 14 day(s), # 28 cap(s), Refills(s) 0, Pharmacy: [facility]/pharmacy #[id number], 162, cm, 09/06/21 11:53:00 EDT, Height/Length Dosing, 63.8, kg, 09/06/21 11:53:00 EDT, Weight Dosing Start Date: 09/06/21 Stop Date: 09/20/21 Status: Ordered nitrofurantoin macrocrystals-monohydrate 100 mg Cap (1 source) Start: 10-27-2021 End: 11-01-2021 take 1 capsule by mouth twice daily nitrofurantoin macrocrystals-monohydrate 100 mg Cap 100 mg = 1 cap(s), Oral, BID, X 5 day(s), # 10 cap(s), Refills(s) 0, Pharmacy: [facility]/pharmacy #[id number], 165, cm, 10/27/21 9:52:00 EDT, Height/Length Dosing, 63, kg, 10/27/21 9:52:00 EDT, Weight Dosing Start Date: 10/27/21 Stop Date: 11/01/21 Status: Ordered nitrofurantoin, macrocrystals 25 mg / nitrofurantoin, monohydrate 75 mg oral capsule (20 sources) Nitrofuran Antibacterial Start: 09-12-2023 End: 01-09-2024 [...] day(s), # 10 cap(s), Refills(s) 0, Pharmacy: [facility]/pharmacy #[id number], 154.9, cm, 01/15/22 15:56:00 EDT, Height/Length [...] on above: Take 1 capsule by mo [facility] once daily for 7 days. Take 1 capsule by [facility] twice daily for 5 days. omeprazole 40 mg delayed release oral capsule (13 sources) Proton Pump Inhibitor Start: 2 take 1 capsule by mouth once daily omeprazole 40 mg Cap-DR 40 mg = 1 cap(s), Oral, Daily, # 30 cap(s), Refills(s) 2, Pharmacy: [facility]/pharmacy #[id number], 162, cm, 08/06/21 8:29:00 EDT, Height/Length Dosing, 63.5, kg, 08/06/21 8:29:00 EDT, Weight Dosing Start Date: 08/28/21 Status: Ordered omeprazole 40 mg Cap-DR (20 sources) Start: 2 take 1 capsule by mouth once daily omeprazole 40 mg Cap-DR 40 mg = 1 cap(s), Oral, Daily, # 30 cap(s), Refills(s) 2, Pharmacy: [facility]/pharmacy #[id number], 162, cm, 08/06/21 8:29:00 EDT, Height/Length [...] Nausea/Vomiting, # 10 tab(s), Refills(s) 0, Pharmacy: [facility]/pharmacy #[id number], 155, cm, 12/29/22 12:46:00 EDT, Height/Length Dosing, 68, kg, 08/06/23 12:46:00 EDT, Weight Dosing Start Date: 12/29/22 [...] Daily, # 90 tab(s), Refills(s) 1, Pharmacy: [facility]/pharmacy #[id number], 157, cm, 07/08/21 1:27:00 EST, Height/Length [...] day(s), # 9 tab(s), Refills(s) 0, Pharmacy: [facility]/pharmacy #[id number], 154.9, cm, 02/13/22 11:50:00 EDT, Height/Length Dosing, 57.6, kg, 02/13/22 11:50:00 EDT, Weight Dosing Start Date: 02/13/22 Stop Date: 02/16/22 Status: Ordered Start: 10-20-2021 take 1 tablet by cachorro th three times daily Pyridium 200 mg Tab 200 mg = 1 tab(s), Oral, TID, Take one tab by mouth three times a day for three days, # 9 tab(s), Refills(s) 0, [id number] 157, cm, 11/07/21 8:56:00 EDT, Height/Length Dosing, 59.9, kg, 11/07/21 8:56:00 EDT, Weight Dosing Start Date: 11/07/21 Status: Ordered Start: 09-08-2021 End: 09-10-2021 take 1 tablet by mouth three times daily Pyridium 200 mg Tab 200 mg = 1 tab(s), Oral, TID, X 2 day(s), # 6 tab(s), Refills(s) 0, [id number] 158, cm, 09/08/21 8:41:00 EDT, Height/Length [...] Date: 08/07/21 Status: Ordered polyethylene glycol 3350 74701 mg powder for oral solution (20 sources) [...] TID, # 90 tab(s), Refills(s) 5, [id number] 162, cm, 09/06/21 11:53:00 EDT, Height/Length Dosing, 63.8, kg, 09/06/21 11:53:00 EDT, Weight Dosing Start Date: 09/06/21 Status: Ordered Start: 09-06-2021 take 1 tablet by cachorro three times daily Sodium Chloride 1 g oral tablet 1 tab, Oral, TID, # 90 tab(s), Refills(s) 5, [id number] 162, cm, 09/06/21 11:53:00 EDT, Height/Length Dosing, 63.8, kg, 09/06/21 11:53:00 EDT, Weight Dosing Start Date: 09/06/21 Status: Ordered Start: 08-07-2021 End: 05-25-2022 take 1 g by mouth three times daily Sodium Chloride Discontinued 1 GM PO Three times daily August 07, 2021 12:00am May 25, 2022 9:42pm Start: 07-09-2021 take 1 tablet by cachorro three times daily Sodium Chloride 1 g oral tablet 1 tab, Oral, TID, # 90 tab(s), Refills(s) 5, [id number] 157, cm, 07/08/21 1:27:00 EST, Height/Length Dosing, 64, kg, 07/08/21 1:27:00 EST, Weight Dosing Start Date: 07/09/21 Status: Ordered Start: 10-29-2019 take 1 tablet by cachorro once daily sodium chloride 1 gram tab [...] for 7 day(s), 14 tab(s), Refill(s) 0, [facility]/pharmacy #[id number], 158, cm, 09/13/21 10:56:00 EDT, Height/Length [...] Nausea, # 90 tab(s), Refills(s) 1, Pharmacy: [facility]/pharmacy #[id number], 154, cm, 03/04/22 13:21:00 EDT, Height/Length Dosing, 57, kg, 03/04/22 13:21:00 EDT, Weight Dosing Start Date: 03/27/22 Status: Ordered Start: 01-17-2022 take 1 tablet by cachorro th three times daily as needed for nausea Zofran ODT 4 mg Tab-Dis 4 mg = 1 tab(s), Oral, TID, PRN Nausea, # 90 tab(s), Refills(s) 1, Pharmacy: [facility]/pharmacy #[id number], 155, cm, 01/16/22 8:27:00 EDT, Height/Length Dosing, 64, kg, 01/16/22 8:27:00 EDT, Weight Dosing Start Date: 01/17/22 Status: Ordered Start: 10-31-2021 take 1 tablet by cachorro th three times daily as needed for nausea Zofran ODT 4 mg Tab-Dis 4 mg = 1 tab(s), Oral, TID, PRN Nausea, # 90 tab(s), Refills(s) 1, Pharmacy: [facility]/pharmacy #[id number], 157, cm, 10/31/21 11:42:00 EDT, Height/Length Dosing, 62.6, kg, 10/31/21 11:42:00 EDT, Weight Dosing Start Date: 10/31/21 Status: Ordered Start: 10-27-2021 take 1 tablet by cachorro th every eight hours as needed for nausea Zofran ODT 4 mg Tab-Dis 4 mg = 1 tab(s), Oral, q8hr, PRN Nausea/Vomiting, # 12 tab(s), Refills(s) 0, Pharmacy: [facility]/pharmacy #[id number], 165, cm, 10/27/21 9:52:00 EDT, Height/Length Dosing, 63, kg, 10/27/21 9:52:00 EDT, Weight Dosing Start Date: 10/27/21 Status: Ordered Start: 09-18-2021 take 1 tablet by cachorro th three times daily as needed for nausea Zofran ODT 4 mg Tab-Dis 4 mg = 1 tab(s), Oral, TID, PRN Nausea, # 90 tab(s), Refills(s) 1, Pharmacy: [facility]/pharmacy #[id number], 158, cm, 09/17/21 9:33:00 EDT, Height/Length Dosing, 63, kg, 09/17/21 9:33:00 EDT, Weight Dosing Start Date: 09/18/21 Status: Ordered Start: 08-04-2021 End: 08-07-2021 take 1 tablet by mouth three times daily as needed for nausea Zofran ODT 4 mg Tab-Dis 4 mg = 1 tab(s), Oral, TID, PRN Nausea, # 10 tab(s), Refills(s) 0, Pharmacy: [facility]/pharmacy #[id number], 162, cm, 08/04/21 11:45:00 EST, Height/Length [...] inophen Discontinued 1 TAB PO Q6H 10 3 August 08, 2021 May 25, 2022 9:42pm [...] Start: 12-22-2019 take 2 tablets by mo uth three times daily cimetidine 300 mg oral tablet 600 mg = 2 tab(s), Oral, TID, # 180 tab(s), Refills(s) 5, Pharmacy: [facility]/pharmacy #[id number], 154, cm, 02/17/22 16:05:00 EDT, Height/Length [...] qMonth, # 10 mL, Refills(s) 1, [id number] 157, cm, 07/08/21 1:27:00 EST, Height/Length Dosing, 64, kg, 07/08/21 1:27:00 EST, Weight Dosing Start Date: 07/09/21 Status: Ordered Start: 07-09-2021 inject 1 mL by intra muscular injection every month cyanocobalamin 1000 mcg/mL Inj 1,000 microgram = 1 mL, IntraMuscular, qMonth, # 10 mL, Refills(s) 1, [id number] 157, cm, 07/08/21 1:27:00 EST, Height/Length Dosing, 64, kg, 07/08/21 1:27:00 EST, Weight Dosing Start Date: 07/09/21 Status: Ordered docusate sodium 50 mg / sennosides, halfway 8.6 mg oral tablet (20 sources) Start: [...] once daily. Ensure Vanilla (20 sources) Start: Ensure Vanilla See Instructions, 60 EA, Refill(s) 5, Drink 1 bottle (8 fl. oz.) BID Start Date: 03/06/22 Status: Ordered lisinopril 20 mg oral tablet (20 sources) Angiotensin Converting Enzyme Inhibitor Start: End: take 20 mg by mouth once daily Lisinopril Discontinued 20 MG PO Daily August 07, 2021 12:00am June 11, 2022 11:09am take 1 tablet by cachorro th every twenty-four hours Lisinopril 10 MG 1 tablet Orally Once a day for 30 day(s) Active Comment on above: Take 20 mg by mouth once daily. Morphine (19 sources) Opioid Agonist morphine sulfate (MORPHINE INTRAVENOUS) Inject intravenously. 0 Active Comment on above: Inject intravenously . OLANZapine 5 mg oral tablet (8 sources) Atypical Antipsychotic Start: 4 End: take 10 mg by mouth once daily [...] 11:08pm Start: 07-09-2021 take 1 capsule by [facility] every other day potassium chloride 10 mEq Cap-ER 10 mEq = 1 cap(s), Oral, Every other day, # 30 EA, Refills(s) 2, Pharmacy: [facility]/pharmacy #[id number], 154.9, cm, 02/01/22 6:28:00 EDT, Height/Length Dosing, 52, kg, 02/01/22 6:28:00 EDT, Weight Dosing Start Date: 02/01/22 Status: Ordered Start: 07-09-2021 take 1 capsule by [facility] every other day potassium chloride 10 mEq Cap-ER 10 mEq = 1 cap(s), Oral, Every other day, # 30 EA, Refills(s) 2, [id number] 157, cm, 07/08/21 1:27:00 EST, Height/Length Dosing, 64, kg, 07/08/21 1:27:00 EST, Weight Dosing Start Date: 07/09/21 Status: Ordered Comment on above: TAKE 1 CAPSULE BY [facility] EVERY OTHER DAY prazosin 2 mg [...] day(s), # 15 tab(s), Refills(s) 0, Pharmacy: [facility]/pharmacy #[id number], 155, cm, 05/03/22 11:54:00 EST, Height/Length Dosing, 58, kg, 05/03/22 11:54:00 EST, Weight Dosing Start Date: 05/03/22 Stop Date: 05/08/22 Status: Ordered raNITIdine (20 sources) Histamine-2 Receptor Antagonist RANITIDINE HCL (ZANT AC ORAL) Take by mouth as needed. 0 Active Comment on above: Take by mouth as nee ded. sennosides, halfway 8.6 mg oral tablet (20 sources) Start: 09-06-2021 senna (SENOKOT) 8.6 mg tab Take by mouth. 0 09/06/2021 Active Start: 09-06-2021 take 2 tablets by [facility] once daily at bedtime as needed for constipation Senokot 8.6 mg Tab 17.2 mg = 2 tab(s), Oral, Once a day (at bedtime), PRN for constipation, # 100 tab(s), Refills(s) 1, Pharmacy: [facility]/pharmacy #[id number], 162, cm, 09/06/21 11:53:00 EDT, Height/Length Dosing, 63.8, kg, 09/06/21 11:53:00 EDT, Weight Dosing Start Date: 09/06/21 Status: Ordered Comment on above: Take by mouth. Symbicort 160/4.5 inhalation aerosol with adapter (20 sources) Start: 08-14-19 take 1 dose by inhalation twice daily Symbicort 160/4.5 inhalation aerosol with adapter 2 puff(s), Inhalation, BID, 1 EA, Refill(s) 0, [facility]/pharmacy #[id number], 180.3, cm, 08/11/20 1:10:00 EDT, Height/Length [...] Comment on above: Take 1 tablet by [facility] every 8 hours as needed (for pain.). 24 hr venlafaxine 37.5 mg extended release oral capsule (20 sources) Serotonin and Norepinephrine Reuptake Inhibitor Start: 08-07-2021 End: 06-11-2022 take 37.5 mg by mouth once daily Venlafaxine Discontinued 37.5 MG PO Daily August 07, 2021 12:00am June 11, 2022 11:09am Start: 07-06-2021 take 1 capsule by [facility] once daily venlafaxine 37.5 mg Cap-ER 37.5 mg = 1 cap(s), Oral, Daily, stop citalopram, # 30 cap(s), Refills(s) 5, Pharmacy: [facility]/pharmacy #[id number], 155, cm, 10/01/21 18:15:00 EDT, Height/Length Dosing, 67.4, kg, 10/01/21 18:15:00 EDT, Weight Dosing Start Date: 10/01/21 Status: Ordered vitamin b12 1 mg/ml injectable solution (20 sources) Vitamin B12 Start: 07-22-2022 inject 1 mL by intramuscular injection every month cyanocobalamin 1000 mcg/mL Inj 1,000 microgram = 1 mL, IntraMuscular, qMonth, # 10 mL, Refills(s) 1, Pharmacy: [facility]/pharmacy #[id number], 160, cm, 05/24/22 21:59:00 EST, Height/Length Dosing, 58.3, kg, 05/24/22 21:59:00 EST, Weight Dosing Start Date: 07/22/22 Status: Ordered Start: 07-22-2022 inject 1 mL by intra muscular injection every month cyanocobalamin 1000 mcg/mL Inj 1,000 microgram = 1 mL, IntraMuscular, qMonth, # 10 mL, Refills(s) 1, Pharmacy: [facility]/pharmacy #[id number], 160, cm, 05/24/22 21:59:00 EST, Height/Length [...] qMonth, # 10 mL, Refills(s) 1, Pharmacy: [facility]/pharmacy #[id number], 157, cm, 07/08/21 1:27:00 EST, Height/Length [...] disorder; Translations: [Panic disorder with agoraphobia] Onset: 05-01-2005-01-2020 Chronic Asthma (20 sources) Asthma 08-06-2013 Chronic Chronic kidney disease (20 sources) Chronic kidney disease stage 2; Translations: [Chronic kidney disease stage 3] Onset: 12-17-1905-08-2020 Chronic Chronic obstructive pulmonary disease and bronchiectasis [...] foot 09-11-2020 Episodic Other aftercare (1 source) joint terminal attack controller (current) use of anticoagulants; Translations: [PARK MANAGER (CURRENT) USE OF ANTICOAGULANTS] Onset: 09-28-19 Episodic Other aftercare (20 sources) Long-term current use of anticoagulant; Translations: [joint terminal attack controller (current) use of anticoagulants] 09-30-2014 Episodic Other aftercare (5 sources) Polypharmacy ; Translations: [Other intermediate (current) drug therapy] 05-27-2022 Episodic Other aftercare (5 sources) Prescribed medication regimen behavior finding; Translations: [joint terminal attack controller (current) use of opiate analgesic] 05-27-2022 Episodic Other aftercare (1 source) joint terminal attack controller (current) use of opiate analgesic; Translations: [Long-term [...] joint, right ankle and foot] Onset: 04-18-20 22 Chronic Other non-traumatic joint disorders (20 sources) Hip pain Resolved : 11-25-19 18 10-21-2018 Episodic Other non-traumatic joint disorders (20 sources) Chronic ankle pain 09-11-2020 Episodic Other non-traumatic joint disorders (1 source) Shoulder joint pain; Translations: [Pain in unspecified shoulder] Onset: 11-18-19 Episodic Other non-traumatic joint disorders (4 sources) Pain in right ankle and joints of right foot; Translations: [PAIN IN RIGHT ANKLE] Onset: 08-29-19 Episodic Other non-traumatic joint disorders (1 source) [...] Delusional disorder; Translations: [Delusional disorders] Onset: 02-02-20 23 Chronic Spondylosis; intervertebral disc disorders; other back problems (20 sources) Backache; Translations: [Dorsalgia, unspecified] Onset: 09-17-19 15 09-16-2014 Episodic Sprains and strains (2 sources) Sprain of right ankle; Translations: [Sprain of unspecified ligament of right ankle, initial encounter] Onset: 12-24-19 23 Episodic Substance-related disorders (20 sources) Benzodiazepine [...] Translations: [Nontoxic single thyroid nodule] Onset: 02-04-20 Chronic Unclassified (1 source) [place] coma scale score 13-15, at hospital admission; [...] 10-27-2021 Episodic Other aftercare (2 sources) Other terminal supervisor (current) drug therapy; Translations: [Long-term (current) use [...] Onset: 12-05-2021 Episodic Unclassified (20 sources) Agent [place] (substance) Resolved: 03-01-2010 10-21-2018 Unclassified (20 sources) [...] Test Name Value Interpretation Reference Range Facility C Urineon 02-01-2024 Bacteria identified Cx Nom (U) Microbiology PROCEDURE: Urine Culture [R1] SOURCE: U CleanCatch BODY SITE: COLLECTED DATE/TIME: 01/30/2024 15:00 EDT RECEIVED DATE/TIME: 01/30/2024 18:02 EDT START DATE/TIME: 01/30/2024 18:02 EDT FREE TEXT SOURCE: CECI REYES DO, DO, CECI FINAL REPORTS Final Report [] Verified Date/Time: 02/01/2024 10:18 EDT 40,000 cfu/ml Klebsiella pneumoniae SUSCEPTIBILITY RESULTS _ LEGEND: S=Susceptible, N/R=Not Reported, Blank=Data not available, or drug not advisable or tested, I=Intermediate, ESBL=Extended spectrum beta-lactamase, R=Resistant, TFG=Thymidine-dependent strain, ANAY=Beta-lactamase positive, REINALDO=mcg/m;(mg/L), S*=Predicted susceptible interp, R*=Predicted resistant interp Klepne Antibiotic REINALDO Dilutn REINALDO Interp Ampicillin >16 R Ampicillin/ <=8/4 S Sulbactam Aztreonam <=4 S Cefazolin <=2 S Cefepime <=2 S Ceftazidime <=1 S Ceftazidime/ <=8 S Avibactam Ceftriaxone <=1 S Cefuroxime <=4 S Ciprofloxacin 1 R Ertapenem <=0.5 S Gentamicin <=2 S Levofloxacin <=0.5 S Meropenem <=1 S Nitrofurantoin <=32 S Piperacillin/ <=8 S Tazobactam Tetracycline <=4 S Tobramycin <=2 S Trimethoprim/ <=2/38 S Sulfa Performing Locations R1: This test was performed at: [email or web address], [address] [place] [address], [address] , [place], Normal [facility] Comment on above: Performed By: #### 2 [id number] #### [facility] [address] [place] [address] ED Clinical Summaryon 2023 ED Clinical Summary ED Clinical Summary [facility] [address] [place], [place] [address] ED Clinical Summary Person Information [facility]: [facility] Age[facility] 74 Years : 1950 Sex: Female Language: Cuban PCP: AZUL BATEMAN CNP Marital Status: Phone: [phone] Visit Id: Visit Reason: Post surgical problem; [...] 01/28/2024 18:39:42 01/28/2024 18:39:42 01/28/2024 18:39:42 ADDRESS: [id number] [place] [id number] PHYS DOC NOTES: MEDICAL INFORMATION: Prescriptions Given: [...] 5. fluticasone nasal (fluticasone 0.05 mg/inh Nasal [place]) 2 Sprays Nasal Inhalation every day. each [...] EDUCATION INFORMATION: Instructions: Follow up: DIAGNOSIS: Normal [facility] ED Patient Education Noteon 01-28-2024 ED Patient Education Note ED Patient Education Note Normal [facility] ED Patient Summaryon 024 ED Patient Summary ED Patient Summary [place] [id number] Patient Discharge Instructions Person Information Name: MAEGAN DYE Age: 74 Years Arrival Date: 01/28/2024 18:06:56 Discharge Diagnosis: Primary Care Physician: AZUL BATEMAN CNP Provider Information Primary Provider: Advanced Wet Roaster:None The exam and treatment you received in the Emergency Department were for an urgent problem and are not intended as complete care. It is important that you follow up with a doctor, nurse practitioner, or physician?s practice assistant for ongoing care. If your symptoms [...] opioids can be used to help relieve [id number] pain and are often prescribed following a [...] be struggling with addiction, tell your health lawn caretaker and ask for guidance or call [facility]?S National Helpline at 1-965-230-DRBR. c Source: [place] Department of Health and Human Services/Center for Disease Control & Prevention [facility] Medications Given: Medication Dose Route No medications found. Medication Inf (more content not included)... Normal [facility] CBC w/ Auto Diffon 4 Basophils/100 WBC (Bld) 0.2 % Normal 0.0-2.0 [facility] Comment on above: Performed By: #### 2 [id number] #### [facility] [address] [place] [address] Basophils/Leukocytes Auto (Bld) [Pure # fraction] 0.0 E9/L Normal 0.0-0.2 [facility] Comment on above: Performed By: #### 2 [id number] #### [facility] [address] [place] [address] Eosinophils (Bld) [#/Vol] 0.3 E9/L Normal 0.0-0.5 [facility] Comment on above: Performed By: #### 2 [id number] #### [facility] [address] [place] [address] Eosinophils/100 WBC (Bld) 3.9 % Normal 0.0-8.0 [facility] Comment on above: Performed By: #### 2 [id number] #### [facility] [address] [place] [address] Erythrocyte distribution width (RBC) [Ratio] 12.9 % Normal 10.9-14.2 [facility] Comment on above: Performed By: #### 2 [id number] #### [facility] [address] [place] [address] Hematocrit (Bld) [Volume fraction] 35.8 % Normal 34.0-46.0 [facility] Comment on above: Performed By: #### 2 [id number] #### [facility] [address] [place] [address] Hemoglobin (Bld) [Mass/Vol] 12.1 g/dL Normal 12.0-16.0 [facility] Comment on above: Performed By: #### 2 [id number] #### [facility] [address] [place] [address] Lymphocytes (Bld) [#/Vol] 1.5 E9/L Normal 1.0-4.0 [facility] Comment on above: Performed By: #### 2 [id number] #### [facility] [address] [place] [address] Lymphocytes/100 WBC (Bld) 20.9 % Normal 14.0-50.0 [facility] Comment on above: Performed By: #### 2 [id number] #### [facility] [address] [place] [address] MCH (RBC) [Entitic mass] 30.6 pg Normal 27.0-34.0 [facility] Comment on above: Performed By: #### 2 [id number] #### [facility] [address] [place] [address] MCHC (RBC) [Mass/Vol] 33.8 g/dL Normal 31.4-36.0 [facility] Comment on above: Performed By: #### 2 [id number] #### [facility] [address] [place] [address] MCV (RBC) [Entitic vol] 90.4 fL Normal 80.0-100.0 [facility] Comment on above: Performed By: #### 2 [id number] #### [facility] [address] [place] [address] Monocytes (Bld) [#/Vol] 0.7 E9/L Normal 0.2-1.0 [facility] Comment on above: Performed By: #### 2 [id number] #### [facility] [address] [place] [address] Neutrophils (Bld) [#/Vol] 4.8 E9/L Normal 2.0-7.5 [facility] Comment on above: Performed By: #### 2 [id number] #### [facility] [address] [place] [address] Neutrophils/100 WBC (Bld) 64.8 % Normal 36.0-75.0 [facility] Comment on above: Performed By: #### 2 [id number] #### [facility] [address] [place] [address] Platelet 219.0 E9/L Normal 150.0-500. 0 [facility] Comment on above: Performed By: #### 2 [id number] #### [facility] [address] [place] [address] Platelet mean volume (Bld) [Entitic vol] 7.5 fL Normal 6.4-10.8 [facility] Comment on above: Performed By: #### 2 [id number] #### [facility] [address] [place] [address] RBC (Bld) [#/Vol] 4.0 E12/L Low 4.3-5.9 [facility] Comment on above: Performed By: #### 2 [id number] #### [facility] [address] [place] [address] WBC corrected for nucl RBC Auto (Bld) [#/Vol] 7.4 E9/L Normal 4.0-11.0 [facility] Comment on above: Performed By: #### 2 [id number] #### [facility] [address] [place] [address] CHEMISTRYOrdered By: SYSTEM SYSTEM on 01-12-2024 Albumin [...] 01-12-2024 Albumin [Mass/Vol] 3.9 g/dL Normal 3.3-5.0 [facility] Comment on above: Performed By: #### 2 [id number] #### [facility] [address] [place] [address] Albumin/Globulin (S) [Mass conc ratio] 1.4 Normal 1.1-2.2 [facility] Comment on above: Performed By: #### 2 [id number] #### [facility] [address] [place] [address] ALP [Catalytic activity/Vol] 88 Int._Unit/L Normal 21-98 [facility] Comment on above: Performed By: #### 2 [id number] #### [facility] [address] [place] [address] ALT No additional P-5'-P [Catalytic activity/Vol] 8 Int._Unit/L Normal 6-46 [facility] Comment on above: Performed By: #### 2 [id number] #### [facility] [address] [place] [address] Anion gap [Moles/Vol] 10 mmol/L Normal 6-16 [facility] Comment on above: Performed By: #### 2 [id number] #### [facility] [address] [place] [address] AST [Catalytic activity/Vol] 17 Int._Unit/L Normal 5-43 [facility] Comment on above: Performed By: #### 2 [id number] #### [facility] [address] [place] [address] Bilirubin [Mass/Vol] 0.5 mg/dL Normal 0.0-1.1 [facility] Comment on above: Performed By: #### 2 [id number] #### [facility] [address] [place] [address] Calcium [Mass/Vol] 8.8 mg/dL Low 8.9-11.1 [facility] Comment on above: Performed By: #### 2 [id number] #### [facility] [address] [place], [place] [address] Chloride [Moles/Vol] 102 mmol/L Normal 101-111 [facility] Comment on above: Performed By: #### 2 [id number] #### [facility] [address] [place] [address] CO2 [Moles/Vol] 29 mmol/L Normal 21-31 [facility] Comment on above: Performed By: #### 2 [id number] #### [facility] [address] [place] [address] Creatinine [Mass/Vol] 0.9 mg/dL Normal 0.5-1.3 [facility] Comment on above: Performed By: #### 2 313298 #### [facility] [address] [place] [address] Globulin (S) [Mass/Vol] 2.7 g/dL Normal 1.4-4.0 [facility] Comment on above: Performed By: #### 2 417277 #### [facility] [address] [place] [address] Glucose [Mass/Vol] 151 mg/dL Normal 55-199 [facility] Comment on above: Performed By: #### 2 104644 #### [facility] [address] [place] [address] Potassium [Moles/Vol] 3.5 mmol/L Normal 3.5-5.3 [facility] Comment on above: Performed By: #### 2 421920 #### [facility] [address] [place] [address] Protein [Mass/Vol] 6.6 g/dL Normal 6.0-7.8 [facility] Comment on above: Performed By: #### 2 232706 #### [facility] [address] [place] [address] Sodium [Moles/Vol] 137 mmol/L Normal 135-145 [facility] Comment on above: Performed By: #### 2 842400 #### [facility] [address] [place] [address] Urea nitrogen [Mass/Vol] 12 mg/dL Normal 5-21 [facility] Comment on above: Performed By: #### 2 682958 #### [facility] [address] [place] [address] Urea nitrogen/Creatinine [Mass ratio] 13 No Units Normal 10-20 [facility] Comment on above: Performed By: #### 2 281469 #### [facility] [address] [place] [address] HEMATOLOGYOrdered By: SYSTEM SYSTEM on 01-12-2024 Basophils/100 [...] E9/L Remisol Heme XR Chest 2 Viewson 4 XR Chest 2 Views Exam Date/Time: 01/12/2024 [...] Signed by: Chucho Gandara MD Transcribed by: DP Technologist: CC Technical Comments Radiation Dose: Ka,r in mGy = na DAP = na Normal [facility] eGFRon 01-12-2024 eGFR 66 mL/min/1.73 m2 Normal >=59 [facility] Comment on above: Order Comment: Order added by Discern Expert. Performed By: #### 1 [id number] #### [facility] [address] [place] [address] XR Hand 3+ Views Lefton 12-24 XR [...] mGy = na DAP = na Normal [facility] XR Wrist 3+ Views Lefton XR [...] mGy = na DAP = na Normal [facility] ED Clinical Summaryon 2023 ED Clinical Summary ED Clinical Summary [place] [id number] ED Clinical Summary Person [facility] Age[facility] 74 Years : 1950 Sex: Female Language: Cuban PCP: AZUL BATEMAN CNP Marital Status: Phone: [phone] Visit Id: Visit Reason: Hand pain-swelling; Wrist [...] 01/10/2024 22:20:27 01/10/2024 22:20:27 01/10/2024 22:20:27 ADDRESS: [facility] [address] [facility] [id number] PHYS DOC NOTES: MEDICAL INFORMATION: Prescriptions Given: New Medications [facility]/pharmacy #[id number], [address] [place], [place] [phone], [phone] acetaminophen-oxycodone (Percocet 5 mg-325 mg oral tablet) [...] 5. fluticasone nasal (fluticasone 0.05 mg/inh Nasal [place]) 2 Sprays Nasal Inhalation every day. each [...] up: With: Address: When: Kye Barrientos [address] [place] [address] Business (1) In 3 days 01/13/2024 With: Address: When: AZUL BATEMAN [address] [place] [address] [facility] (1) In 3 days DIAGNOSIS: Distal radius fracture; Left wrist pain Normal [facility] ED Note-Physicianon 01-10-20 ED Note-Physician ED Note-Physician Basic Information Time Seen: Jose Daniel PA-C 01/10/2024 20:59 Chief Complaint Pt tripped into [...] Kye Barrientos In 3 days 01/13/[address]T [address] [employer] (1) Additional Instructions: AZUL BATEMAN In [address] [facility] (1) Additional Instructions: Patient Education Radial Fracture Attestation Patient seen and evaluated by the physician practice assistant. Attending physician was present in the emergency department and supervised care. This visit was performed by both the physician and an APC. I performed all aspects of the MDM as documented. This report was transcribed using voice recognition software. Every effort was made to ensure accuracy, however, inadvertently computerized product assembler mistakes may be present. Appropriate healthcare PPE [...] 27.0-27.9,adult Ch (more content not included)... Normal [facility] Comment on above: Result Comment: Elec tronically Signed By: Jose Daniel PA-C\.br\Date and Time Signed: 01/10/24 22:21 EDT\.br\Electronically Co-Signed By: Mati Taylor DO\.br\Date and Time Co-Signed: 01/10/24 23:37 EDT ED Patient Summaryon 024 ED Patient Summary ED Patient Summary [place] [address] Patient Discharge Instructions Person Information Name: MAEGAN DYE Age: 74 Years Arrival Date: 01/10/2024 20:33:08 Discharge Diagnosis: Distal radius fracture; Left wrist pain Primary Care Physician: AZUL BTAEMAN CNP Provider Information Primary Provider: Mati Taylor DO Advanced Wet Roaster:Jose Daniel PA-C The exam and treatment you received in the Emergency Department were for an urgent problem and are not intended as complete care. It is important that you follow up with a doctor, nurse practitioner, or physician?s practice assistant for ongoing care. If your symptoms [...] Instructions: With: Address: When: Kye Barrientos [address] [place] [address] Business (1) In 3 days 01/13/2024 With: Address: When: AZUL BATEMAN [address] [place] [id number] Business (1) In 3 days In the event that this physician does not participate in your insurance network, please consult with your insurance company to find a nearby participating provider. Patient Education Materials: Radial Fracture A MESSAGE TO ALL PATIENTS REGARDING OPIOIDS PRESCRIPTION OPIOIDS: WHAT YOU NEED TO KNOW Prescription opioids can be used to help relieve pecaivzx-rc-mzytgn pain and are often prescribed following a [...] be st (more content not included)... Normal [facility] C Urineon 01-04-2024 Bacteria identified Cx Nom (U) Microbiology PROCEDURE: Urine Culture [R1] SOURCE: U Random BODY SITE: COLLECTED DATE/TIME: 01/02/2024 11:24 EDT RECEIVED DATE/TIME: 01/02/2024 17:34 EDT START DATE/TIME: 01/02/2024 17:34 EDT FREE TEXT SOURCE: Luna Jiménez Patty FINAL REPORTS Final Report [] Verified Date/Time: [...] Locations R1: This test was performed at: [facility], [address] [place] [address], [facility]- , , Normal [facility] Comment on above: Performed By: #### 2 [id number] #### [facility] [address] [place] [address] Ambulatory Visit Summaryon 0 01-02-2024 Ambulatory Visit Summary Normal [facility] Family Medicine Office/Clini c Noteon 01-02-2024 Family Medicine Office/Clinic Note Normal [facility] Comment on above: Result Comment: Elec tronically Signed By: Alla AWAN, Luna\.br\Date and Time Signed: 01/02/24 11:47 EDT Patient Educationon 01-02-20 Patient Education Normal [facility] Heart and Vascular Office/Cl inic Noteon [...] Christie, PUL, SJ Within 6 weeks [address] [facility] Vascular) [place] [address]- Additional Instructions: Problem List/Past Medical History Ongoing [...] Vitamin D deficiency Historical Accidental fall Agent [place] ASTHMA Benzodiazepine withdrawal Bipolar disorder Callus of [...] or hyponat (more content not included)... Normal [facility] Comment on above: Result Comment: Elec tronically Signed By: Sofia RAMOS, Gala G.\.br\Date and Time Signed: 12/19/23 12:30 EDT eGFRon 12-17-2023 eGFR 58 mL/min/1.73 m2 Low >=59 [facility] Comment on above: Order Comment: Order added by Discern Expert. Performed By: #### 1 [id number] #### [facility] [address] [place] [address] Physician Orderon 11-19-2023 Physician Order [id number]#1.00TIFF Normal [facility] Consenton 11-08-2023 Consent [id number]#1.00TIFF Normal [facility] Patient Eval Forms Officeon 11-08-2023 Patient Eval Forms Office [id number]#1.00TIFF Normal [facility] Patient Eval Forms Office [id number]#1.00TIFF Normal [facility] Consent for Treatmenton 10-24 Consent for Treatment [id number]#1.00TIFF Normal [facility] CMPon 10-29-2023 Albumin [Mass/Vol] 4.6 g/dL Normal 3.3-5.0 [facility] Comment on above: Performed By: #### 2 [id number] #### [facility] [address] [place] [address] Albumin/Globulin (S) [Mass conc ratio] 1.8 Normal 1.1-2.2 [facility] Comment on above: Performed By: #### 2 838304 #### [facility] [address] [place] [address] ALP [Catalytic activity/Vol] 89 Int._Unit/L Normal 21-98 [facility] Comment on above: Performed By: #### 2 503233 #### [facility] [address] [place] [address] ALT No additional P-5'-P [Catalytic activity/Vol] 9 Int._Unit/L Normal 6-46 [facility] Comment on above: Performed By: #### 2 976770 #### [facility] [address] [place] [address] Anion gap [Moles/Vol] 12 mmol/L Normal 6-16 [facility] Comment on above: Performed By: #### 2 749085 #### [facility] [address] [place] [address] AST [Catalytic activity/Vol] 16 Int._Unit/L Normal 5-43 [facility] Comment on above: Performed By: #### 2 034565 #### [facility] [address] [place] [address] Bilirubin [Mass/Vol] 0.6 mg/dL Normal 0.0-1.1 [facility] Comment on above: Performed By: #### 2 754074 #### [facility] [address] [place] [address] Calcium [Mass/Vol] 9.4 mg/dL Normal 8.9-11.1 [facility] Comment on above: Performed By: #### 2 929319 #### [facility] [address] [place] [address] Chloride [Moles/Vol] 100 mmol/L Low 101-111 [facility] Comment on above: Performed By: #### 2 139232 #### [facility] [address] [place] [address] CO2 [Moles/Vol] 30 mmol/L Normal 21-31 [facility] Comment on above: Performed By: #### 2 872361 #### [facility] [address] [place] [address] Creatinine [Mass/Vol] 1.1 mg/dL Normal 0.5-1.3 [facility] Comment on above: Performed By: #### 2 167155 #### [facility] [address] [place] [address] Globulin (S) [Mass/Vol] 2.5 g/dL Normal 1.4-4.0 [facility] Comment on above: Performed By: #### 2 604201 #### [facility] [address] [place] [address] Glucose [Mass/Vol] 115 mg/dL Normal 55-199 [facility] Comment on above: Performed By: #### 2 697534 #### [facility] [address] [place] [address] Potassium [Moles/Vol] 3.8 mmol/L Normal 3.5-5.3 [facility] Comment on above: Performed By: #### 2 481284 #### [facility] [address] [place] [address] Protein [Mass/Vol] 7.1 g/dL Normal 6.0-7.8 [facility] Comment on above: Performed By: #### 2 371489 #### [facility] [address] [place] [address] Sodium [Moles/Vol] 138 mmol/L Normal 135-145 [facility] Comment on above: Performed By: #### 2 156133 #### [facility] [address] [place] [address] Urea nitrogen [Mass/Vol] 13 mg/dL Normal 5-21 [facility] Comment on above: Performed By: #### 2 268709 #### [facility] [address] [place] [address] Urea nitrogen/Creatinine [Mass ratio] 12 No Units Normal 10-20 [facility] Comment on above: Performed By: #### 2 756742 #### [facility] [address] [place] [address] Physician Orderon 10-29-2023 Physician Order [id number]#1.00TIFF Normal [facility] Physician Order [id number]#1.00TIFF Normal [facility] Vit B12on 10-29-2023 Cobalamin (Vitamin B12) [Mass/Vol] 413 pg/mL Normal 50-1500 [facility] Comment on above: Performed By: #### 2 900337 #### [facility] [address] [place] [address] eGFRon 10-29-2023 eGFR 52 mL/min/1.73 m2 Low >=59 [facility] Comment on above: Order Comment: Order added by Discern Expert. Performed By: #### 1 [id number] #### [facility] [address] [place] [address] Insurance Correspondenceon 0 10-28-2023 Insurance Correspondence [id number]#1.00TIFF Normal [facility] Consenton 10-10-2023 Consent [id number]#1.00TIFF Normal [facility] Patient Eval Forms Officeon 10-10-2023 Patient Eval Forms Office [id number]#1.00TIFF Normal [facility] Patient Eval Forms Office [id number]#1.00TIFF Normal [facility] Patient Eval Forms Office [id number]#1.00TIFF Normal [facility] Consent for Treatmenton 09-23 Consent for Treatment [id number]#1.00TIFF Normal [facility] Discharge Instructionson Discharge Instructions [id number]#1.00TIFF Normal [facility] Medication Listson Medication Lists [id number]#1.00TIFF Normal [facility] Referral Authorizationson Referral Authorizations [id number]#1.00TIFF Normal [facility] Transfer Documentson 024 Transfer Documents [id number]#1.00TIFF Normal [facility] Physician Orderon 10-03-2023 Physician Order [id number]#1.00TIFF Normal [facility] Discharge Instructionson Discharge Instructions [id number]#1.00TIFF Normal [facility] Transfer Documentson 024 Transfer Documents [id number]#1.00TIFF [facility] [place] Discharge Note-Nursingon Discharge Note-Nursing Normal [facility] Discharge Note-Nursing Normal [facility] Interdisciplinary Note - Maximus e Manageron 09-12-2023 Interdisciplinary Note - Rn X Ray [facility] Comment on above: Result Comment: Elec tronically Signed By: Latasha Hernández\.br\Date and Time Signed: 09/12/23 13:55 EDT Interdisciplinary Note - Maximus e Manageron 09-11-2023 Interdisciplinary Note - Rn X Ray [facility] Comment on above: Result Comment: Elec tronically Signed By: Latasha Hernández\.br\Date and Time Signed: 09/11/23 13:14 EDT Progress Note-Physicianon Progress Note-Physician [facility] Comment on above: Result Comment: Elec tronically Signed By: Jony SEE MD\.br\Date and Time Signed: 09/11/23 11:21 EDT C Urineon 09-10-2023 Bacteria identified Cx Nom (U) [facility] Comment on above: Performed By: #### 4 [id number], [id number] ####[facility] [address] [place] [address] CHEMISTRYOrdered By: Lab ROP User on 09-10-2023 Glucose [Mass/Vol] 72 mg/dL Normal 55 - 99 mg/dL [facility] POC Subsection Comment on above: Result Comment: Christina perea RN/ POC Device SN [id number] 1 Invalid Interpretation Code FT POC Subsection POC User ID [id number] 1 Invalid Interpretation Code FT POC Subsection POC Username JACQUELINE TODD Invalid Interpretation Code [facility] POC Subsection Capillary Glucose POCon 08-24 Glucose [Mass/Vol] 72 mg/dL Normal 55-99 [facility] Comment on above: Result Comment: Christina perea RN/ Performed By: #### 2 [id number] ####[facility] [address] [place] [address] Interdisciplinary Note - Maximus e Manageron 09-10-2023 Interdisciplinary Note - Rn X Ray [facility] [place] Comment on above: Result Comment: Elec tronically Signed By: Latasha Hernández\.br\Date and Time Signed: 09/10/23 11:32 EDT Progress Note-Physicianon Progress Note-Physician [facility] [place] Comment on above: Result Comment: Elec tronically Signed By: Jony SEE MD\.br\Date and Time Signed: 09/10/23 10:39 EDT Interdisciplinary Note - Maximus e Manageron 09-09-2023 Interdisciplinary Note - Rn X Ray [facility] Comment on above: Result Comment: Elec tronically Signed By: Latasha Hernández\.br\Date and Time Signed: 09/09/23 13:42 EDT Progress Note-Physicianon Progress Note-Physician [facility] Comment on above: Result Comment: Elec tronically Signed By: Jony SEE MD\.br\Date and Time Signed: 09/09/23 09:31 EDT ED Note-Physicianon 09-08-19 ED Note-Physician [facility] Comment on above: Result Comment: Elec tronically Signed By: Rodrigue John PA-C.br\Date and Time Signed: 09/07/23 22:25 EDT\.br\Electronically Co-Signed By: Santiago Harrington DO\.br\Date and Time Co-Signed: 09/08/23 01:03 EDT Interdisciplinary Note - Maximus e Manageron 09-08-2023 Interdisciplinary Note - Rn X Ray Normal [facility] Comment on above: Result Comment: Elec tronically Signed By: Latasha Hernández\.br\Date and Time Signed: 09/08/23 12:42 EDT Interdisciplinary Note - Soc ial Workeron 09-08-2023 Interdisciplinary Note - Dopeman Normal [facility] Progress Note-Physicianon Progress Note-Physician Normal [facility] Comment on above: Result Comment: Elec tronically Signed By: MAYI RAMOS, Jony\.br\Date and Time Signed: 09/08/23 10:48 EDT UA with Cult Rflxon 09-08-19 UA Spec Desc Catheter Normal [facility] Comment on above: Result Comment: Test results were corrected for specimen description. Performed By: #### 4 [id number], [id number] ####[facility] [address] [place] [address] CBC w/ Auto Diffon Basophils/100 WBC (Bld) 0.6 % Normal 0.0-2.0 [facility] Comment on above: Performed By: #### 2 764044, 1869278, [id number] ####[facility] [address] [place] [address] Basophils/Leukocytes Auto (Bld) [Pure # fraction] 0.0 E9/L Normal 0.0-0.2 [facility] Comment on above: Performed By: #### 2 797393, 3442399, 13339818 ####[facility] [address] [place] [address] Eosinophils (Bld) [#/Vol] 0.2 E9/L Normal 0.0-0.5 [facility] Comment on above: Performed By: #### 2 975675, 4412266, 77835320 ####[facility] [address] [place] [address] Eosinophils/100 WBC (Bld) 2.3 % Normal 0.0-8.0 [facility] Comment on above: Performed By: #### 2 769431, 4435647, [id number] ####[address] [address] Erythrocyte distribution width (RBC) [Ratio] 12.5 % Normal 10.9-14.2 [facility] Comment on above: Performed By: #### 2 191691, 1569869, 18455621 ####[address] [address] Hematocrit (Bld) [Volume fraction] 39.1 % Normal 34.0-46.0 [facility] Comment on above: Performed By: #### 2 722259, 0204494, 74757104 ####[address] [address] Hemoglobin (Bld) [Mass/Vol] 12.8 g/dL Normal 12.0-16.0 [facility] Comment on above: Performed By: #### 2 817664, 5045578, 77934990 ####[address] [address] Lymphocytes (Bld) [#/Vol] 1.5 E9/L Normal 1.0-4.0 [facility] Comment on above: Performed By: #### 2 598073, 7467967, 23141056 ####[address] [address] Lymphocytes/100 WBC (Bld) 20.0 % Normal 14.0-50.0 [facility] Comment on above: Performed By: #### 2 396765, 8869700, 10611340 ####[address] [address] MCH (RBC) [Entitic mass] 28.5 pg Normal 27.0-34.0 [facility] Comment on above: Performed By: #### 2 529692, 7616686, 22643186 ####[address] [address] MCHC (RBC) [Mass/Vol] 32.7 g/dL Normal 31.4-36.0 [facility] Comment on above: Performed By: #### 2 723374, 9223139, 25337439 ####[address] [address] MCV (RBC) [Entitic vol] 87.1 fL Normal 80.0-100.0 [facility] Comment on above: Performed By: #### 2 707466, 0183778, 88768837 ####[address] [address] Monocytes (Bld) [#/Vol] 0.7 E9/L Normal 0.2-1.0 [facility] Comment on above: Performed By: #### 2 869849, 9209260, 30393366 ####[address] [address] Neutrophils (Bld) [#/Vol] 5.0 E9/L Normal 2.0-7.5 [facility] Comment on above: Performed By: #### 2 708942, 9916730, 62341904 ####[address] [address] Neutrophils/100 WBC (Bld) 67.6 % Normal 36.0-75.0 [facility] Comment on above: Performed By: #### 2 279366, 1431533, 58333687 ####[address] [address] Platelet mean volume (Bld) [Entitic vol] 7.4 fL Normal 6.4-10.8 [facility] Comment on above: Performed By: #### 2 006763, 8750419, 33323875 ####[address] [address] Platelets (Bld) [#/Vol] 257.0 E9/L Normal 150.0-500. 0 [facility] Comment on above: Performed By: #### 2 473864, 9682314, 21011226 ####[address] [place] [address] RBC (Bld) [#/Vol] 4.5 E12/L Normal 4.3-5.9 [facility] Comment on above: Performed By: #### 2 959528, 3563707, 99042721 ####[place] [address] [address] WBC corrected for nucl RBC Auto (Bld) [#/Vol] 7.5 E9/L Normal 4.0-11.0 [facility] [facility] Comment on above: Performed By: #### 2 [id number], [id number], [id number] ####[facility] [address] [place] [address] CHEMISTRYOrdered By: SYSTEM SYSTEM on 09-07-2023 Amphetamines [...] 09-07-2023 Albumin [Mass/Vol] 4.2 g/dL Normal 3.3-5.0 [facility] Comment on above: Order Comment: pt us ing restroom, will check back. [id number] Performed By: #### 2 179142, [id number], [id number] ####[facility] [address] [place] [address] Albumin/Globulin (S) [Mass conc ratio] 1.5 Normal 1.1-2.2 [facility] Comment on above: Order Comment: pt us ing restroom, will check back. [id number] Performed By: #### 2 330899, 8401651, [id number] ####[facility] [address] [place] [address] ALP [Catalytic activity/Vol] 85 Int._Unit/L Normal 21-98 [facility] Comment on above: Order Comment: pt us ing restroom, will check back. [id number] Performed By: #### 2 730135, 5026900, [id number] ####[facility] [address] [place] [address] ALT No additional P-5'-P [Catalytic activity/Vol] 8 Int._Unit/L Normal 6-46 [facility] Comment on above: Order Comment: pt us ing restroom, will check back. [id number] Performed By: #### 2 958384, 3109692, [id number] ####[facility] [address] [place] [address] Anion gap [Moles/Vol] 12 mmol/L Normal 6-16 [facility] Comment on above: Order Comment: pt us ing restroom, will check back. [id number] Performed By: #### 2 388488, 2313731, [id number] ####[facility] [address] [place] [address] AST [Catalytic activity/Vol] 17 Int._Unit/L Normal 5-43 [facility] Comment on above: Order Comment: pt us ing restroom, will check back. [id number] Performed By: #### 2 982846, 9252403, [id number] ####[facility] [address] [place] [address] Bilirubin [Mass/Vol] 0.4 mg/dL Normal 0.0-1.1 [facility] Comment on above: Order Comment: pt us ing restroom, will check back. [id number] Performed By: #### 2 524872, 1901484, [id number] ####[facility] [address] [place] [address] Calcium [Mass/Vol] 9.8 mg/dL Normal 8.9-11.1 [facility] Comment on above: Order Comment: pt us ing restroom, will check back. [id number] Performed By: #### 2 437836, 9918274, [id number] ####[facility] [address] [place] [address] Chloride [Moles/Vol] 99 mmol/L Low 101-111 [facility] Comment on above: Order Comment: pt us ing restroom, will check back. [id number] Performed By: #### 2 720296, 4950523, [id number] ####[facility] [address] [place] [address] CO2 [Moles/Vol] 30 mmol/L Normal 21-31 [facility] Comment on above: Order Comment: pt us ing restroom, will check back. [id number] Performed By: #### 2 082196, 9194442, 60554721 ####[facility] [address] [place] [address] Creatinine [Mass/Vol] 1.1 mg/dL Normal 0.5-1.3 [facility] Comment on above: Order Comment: pt us ing restroom, will check back. [id number] Performed By: #### 2 429975, 3331195, 97742881 ####[facility] [address] [place] [address] Globulin (S) [Mass/Vol] 2.8 g/dL Normal 1.4-4.0 [facility] Comment on above: Order Comment: pt us ing restroom, will check back. [id number] Performed By: #### 2 300125, 2320964, [id number] ####[facility] [address] [place] [address] Glucose [Mass/Vol] 107 mg/dL Normal 55-199 [facility] Comment on above: Order Comment: pt us ing restroom, will check back. [id number] Performed By: #### 2 930943, 9778034, [id number] ####[facility] [address] [place] [address] Potassium [Moles/Vol] 4.3 mmol/L Normal 3.5-5.3 [facility] Comment on above: Order Comment: pt us ing restroom, will check back. [id number] Performed By: #### 2 250570, 9195385, [id number] ####[facility] [address] [place] [address] Protein [Mass/Vol] 7.0 g/dL Normal 6.0-7.8 [facility] Comment on above: Order Comment: pt us ing restroom, will check back. [id number] Performed By: #### 2 488000, 5935730, 33411855 ####[facility] [address] [place] [address] Sodium [Moles/Vol] 137 mmol/L Normal 135-145 [facility] Comment on above: Order Comment: pt us ing restroom, will check back. [id number] Performed By: #### 2 973518, 7149633, 19962026 ####[facility] [address] [place] [address] Urea nitrogen [Mass/Vol] 23 mg/dL High 5-21 [facility] Comment on above: Order Comment: pt us ing restroom, will check back. [id number] Performed By: #### 2 720727, 1313051, [id number] ####[facility] [address] [place] [address] Urea nitrogen/Creatinine [Mass ratio] 21 No Units High 10-20 [facility] Comment on above: Order Comment: pt us ing restroom, will check back. [id number] Performed By: #### 2 994385, 7342118, 68451457 ####[facility] [address] [place] [address] Consent for Treatmenton 08-24 Consent for Treatment [id number] Normal [facility] ED Clinical Summaryon 2023 ED Clinical Summary Normal [facility] ED Note-Nursingon 09-07-2023 ED Note-Nursing spoke with Irma Chakraborty at this time, pt. was evaluated last night and does not meet psychiatric admission criteria. LULA Husain speaks with MICH over the phone at this time. Normal [facility] ED Patient Education Noteon 09-07-2023 ED Patient Education Note Normal [facility] ED Patient Summaryon 024 ED Patient Summary Normal [facility] Ethanolon 09-07-2023 Ethanol Lvl <10 Normal <=11 [facility] Comment on above: Performed By: #### 2 171156 ####[facility] [address] [place] [address] HEMATOLOGYOrdered By: SYSTEM SYSTEM on 09-07-2023 Basophils/100 [...] from Medicareon 08-24 Message from Medicare [id number] Normal [facility] Pre-Arrival Noteon Pre-Arrival Note Normal [facility] U Drug Screenon 09-07-2023 Amphetamines Screen method >1000 ng/mL Ql (U) Negative Normal NEGATIVE [facility] Comment on above: Result Comment: Nega tive Cutoff: <1000 ng/mL Performed By: #### 2 704963 ####[facility] [address] [place] [address] Barbiturates Screen Ql (U) Negative Normal NEGATIVE [facility] Comment on above: Result Comment: Nega tive Cutoff: <200 ng/mL Performed By: #### 2 091573 ####[facility] [address] [place] [address] Benzodiazepines Ql (U) Negative Normal NEGATIVE [facility] Comment on above: Result Comment: Nega tive Cutoff: <200 ng/mL Performed By: #### 2 821082 ####[facility] [address] [place] [address] Cannabinoids Screen Ql (U) Negative Normal NEGATIVE [facility] Comment on above: Result Comment: Nega tive Cutoff: <50 ng/mL Performed By: #### 2 222164 ####[facility] [address] [place] [address] Cocaine Ql (U) Negative Normal NEGATIVE [facility] Comment on above: Result Comment: Nega tive Cutoff: <300 ng/mL Performed By: #### 2 823748 ####[facility] [address] [place] [address] Opiates Screen Ql (U) Positive Abnormal NEGATIVE Fis [facility] Comment on above: Result Comment: Nega tive Cutoff: <300 ng/mL Performed By: #### 2 918761 ####[facility] [address] [place] [address] Phencyclidine Screen method >25 ng/mL Ql (U) Negative Normal NEGATIVE [facility] Comment on above: Result Comment: Nega tive Cutoff: <25 ng/mLThese drug screen results are to be used for medical (i.e., treatment) purposes only. Unconfirmed drug screening results must not be used for non-medical purposes (e.g., employment testing, legal testing). Performed By: #### 2 528113 ####[address] [place] [address] U Fentanyl Negative Normal NEGATIVE [facility] Comment on above: Result Comment: Nega tive Cutoff: <5 ng/mLThese drug screen results are to be used for medical (i.e., treatment) purposes only. Unconfirmed drug screening results must not be used for non-medical purposes (e.g., employment testing, legal testing). Performed By: #### 2 976595 ####[facility] [address] [place] [address] UA with Cult Rflxon 09-07-19 24 Bacteria Auto Ql (U) Trace Normal Trace Fish [facility] Comment on above: Performed By: #### 4 [id number], 6857465 ####[address] [place] [address] Bilirubin Ql (U) Negative Normal Negative [facility] Comment on above: Performed By: #### 4 [id number], [id number] ####[facility] [address] [place] [address] Clarity (U) Clear Normal Clear [facility] Comment on above: Performed By: #### 4 [id number], 5283973 ####[facility] [address] [place] [address] Color (U) Light-Yellow Normal Yellow [facility] Comment on above: Result Comment: Micr oscopic readings are only performed on those samples that meet specific criteria set forth by [facility]. Performed By: #### 4 [id number], 6245437 ####[facility] [address] [place] [address] Crystals.amorphous Computer assisted Ql (U) Present Abnormal [facility] Comment on above: Performed By: #### 4 [id number], 4230120 ####[facility] [address] [place] [address] Epithelial cells.squamous Auto (Urine sed) [#/Area] 0-2 Normal 0-2 [facility] Comment on above: Performed By: #### 4 [id number], 2718032 ####[facility] [address] [place] [address] Glucose Ql (U) Negative Normal Negative [facility] Comment on above: Performed By: #### 4 [id number], 9146082 ####[facility] [address] [place] [address] Hemoglobin Auto test strip (U) [Mass/Vol] Negative Normal Negative [facility] Comment on above: Performed By: #### 4 [id number], 6604817 ####[facility] [address] [place] [address] Ketones Auto test strip Ql (U) Negative Normal Negative [facility] Comment on above: Performed By: #### 4 [id number], 7016946 ####[facility] [address] [place] [address] Leukocyte esterase Auto test strip Ql (U) 250 Gretchen/uL Abnormal Negative [facility] Comment on above: Performed By: #### 4 [id number], 6971592 ####[facility] [address] [place] [address] Mucus Auto Ql (U) Trace Normal Negative [facility] Comment on above: Performed By: #### 4 [id number], 6854106 ####[facility] [address] [place] [address] Nitrite Auto test strip Ql (U) Negative Normal Negative [facility] Comment on above: Performed By: #### 4 [id number], 2471883 ####[address] [address] pH (U) 6.0 [pH] Invalid Interpretation Code 5.0-9.0 [facility] Comment on above: Performed By: #### 4 [id number], 8418937 ####[address] [address] Protein Ql (U) Negative Normal Negative [facility] Comment on above: Performed By: #### 4 [id number], 2382938 ####[address] [address] RBC Ql (U) 0-3 Normal 0-3 [facility] Comment on above: Performed By: #### 4 [id number], 9151880 ####[address] [address] Specific gravity (U) [Rel density] 1.015 Invalid Interpretation Code 1.005-1.03 0 [facility] Comment on above: Performed By: #### 4 [id number], 2876349 ####[address] [address] Transitional cells Computer assisted (U) [#/Area] 0-2 Normal 0-2 [facility] Comment on above: Performed By: #### 4 [id number], 5455406 ####[address] [address] Urobilinogen (U) [Mass/Vol] Negative Normal Negative [facility] Comment on above: Performed By: #### 4 533651562, 2238689 ####[address] [address] WBC Auto (Urine sed) [#/Area] 16-25 Abnormal 0-5 [facility] Comment on above: Performed By: #### 4 [id number], 2282322 ####[address] [address] URINALYSISOrdered By: SYSTEM SYSTEM on 09-07-2023 Bacteria Auto Ql (U) Trace graded/HPF Normal Tra cegrade d/HPF [facility] UA Auto SS Bilirubin Ql (U) Negative Normal Negativemg /dL [facility] UA Auto SS Clarity (U) Clear (09/07/23 8:55 PM) Normal Clear [facility] UA Auto SS Color (U) Light-Yellow 3 (09/07/23 8:55 PM) Normal Yellow [facility] UA Auto SS Comment on above: Interpretive Data: M icroscopic readings are only performed on those samples that meet specific criteria set forth by [facility]. Crystals.amorphous Computer assisted Ql (U) Present graded/HPF Invalid Interpretation Code [facility] UA Auto SS Epithelial cells.squamous Auto (Urine sed) [#/Area] 0-2 graded/HPF Normal 0-2graded/ HPF [facility] UA Auto SS Glucose Ql (U) Negative Normal Negativemg /dL [facility] UA Auto SS Hemoglobin Auto test strip (U) [Mass/Vol] Negative Normal Negativemg /dL [facility] UA Auto SS Ketones Auto test strip Ql (U) Negative Normal Negativemg /dL [facility] UA Auto SS Leukocyte esterase Auto test strip Ql (U) 250 Gretchen/uL Gretchen/uL Invalid Interpretation Code NegativeLe u/uL [facility] UA Auto SS Mucus Auto Ql (U) Trace graded/LPF Normal Negati vegr aded/LPF [facility] UA Auto SS Nitrite Auto test strip Ql (U) Negative Normal Negativemg /dL [facility] UA Auto SS pH (U) 6.0 *NA* (09/07/23 8:55 PM) Invalid Interpretation Code 5.0 - 9.0 [facility] UA Auto SS Protein Ql (U) Negative Normal Negativemg /dL [facility] UA Auto SS RBC Ql (U) 0-3 graded/HPF Normal 0-3graded/ HPF [facility] UA Auto SS Specific gravity (U) [Rel density] 1.015 *NA* (09/07/23 8:55 PM) Invalid Interpretation Code 1.005 - 1.030 [facility] UA Auto SS Transitional cells Computer assisted (U) [#/Area] 0-2 graded/HPF Normal 0-2graded/ HPF [facility] UA Auto SS Urobilinogen (U) [Mass/Vol] Negative Normal Negativemg /dL [facility] UA Auto SS WBC Auto (Urine sed) [#/Area] 16-25 graded/HPF Invalid Interpretation Code 0-5graded/ HPF [facility] UA Auto SS URINALYSISOrdered By: Rodrigue ferrara on 09-07-2023 UA Spec Desc Catheter 6 (09/07/23 8:55 PM) Normal [facility] UA Auto SS Work Phone: Comment on above: Result Comment: Test results were corrected for specimen description. VANCOMYCIN:SUSC:PT:ISOLATE:O RDQN:MICOrdered By: Meghann Ham on 09-07-2023 Vancomycin REINALDO [Susc] 15,000 cfu/ml Staphylococcus epidermidis [facility] Vancomycin REINALDO [Susc]Ordered By: Meghann Ham on 09-07-2023 Staphylococcus epidermidis Staphylococcus epidermidis [facility] eGFRon 09-07-2023 eGFR 52 mL/min/1.73 m2 Low >=59 [facility] Comment on above: Order Comment: Order added by Discern Expert. Performed By: #### 2 231915, 9832357, [id number] ####[facility] [address] [place] [address] Alanine aminotransferase [En zymatic activity/volume] in Serum or PlasmaOrdered By: Maciej Rodriguez on 09-06-2023 ALT [Catalytic activity/Vol] 8 U/L Normal 7-52 [facility] Comment on above: Performed By: #### C MP, CK, HS TROP, CBC #### [facility] [id number] [place] Albumin [Mass/volume] in Ser um or Plasma by Bromocresol green (BCG) dye binding methoOrdered By: Maciej Rodriguez on 09-06-2023 Albumin BCG dye [Mass/Vol] 4.1 g/dL 3.5-5.7 [facility] Alkaline phosphatase [Enzyma tic activity/volume] in Serum or PlasmaOrdered By: Maciej Rodriguez on 09-06-2023 ALP [Catalytic activity/Vol] 84 U/L Normal 34-104 [facility] Comment on above: Performed By: #### C MP, CK, HS TROP, CBC #### [facility] [address] [place] [address] [place] Amphetamine Screen Ql (U)Ord ered By: Maciej Rodriguez on 09-06-2023 Amphetamines Ql (U) Negative Negative [facility] Aspartate aminotransferase [ Enzymatic activity/volume] in Serum or PlasmaOrdered By: Maciej Rodriguez on 09-06-2023 AST [Catalytic activity/Vol] 18 U/L Normal 13-39 [facility] Comment on above: Performed By: #### C MP, CK, HS TROP, CBC #### [address] Automated basophil %Ordered By: Maciej Rodriguez on 09-06-2023 Basophils/100 WBC (Bld) 0.8 % Normal . [facility] Comment on above: Performed By: #### C MP, CK, HS TROP, CBC #### [address] Automated basophil countOrde red By: Maciej Rodriguez on 09-06-2023 Basophils (Bld) [#/Vol] 0.0 10*3/uL Normal 0.0-0.2 [facility] Comment on above: Result Comment: PERF ORMED BY: [place] [address] PATHOLOGIST SURFACE GRINDER CORIE SILVA M.D. Performed By: #### C MP, CK, HS TROP, CBC #### [address] Automated blood monocyte cou ntOrdered By: Maciej Rodriguez on 09-06-2023 Monocytes (Bld) [#/Vol] 0.6 10*3/uL Normal 0.0-0.8 [facility] Comment on above: Performed By: #### C MP, CK, HS TROP, CBC #### [address] Automated eosinophil %Ordere d By: Maciej Rodriguez on 09-06-2023 Eosinophils/100 WBC (Bld) 3.1 % Normal . [facility] Comment on above: Performed By: #### C MP, CK, HS TROP, CBC #### [address] Automated eosinophil countOr dered By: Maciej Rodriguez on 04-13-2024 Eosinophils (Bld) [#/Vol] 0.2 10*3/uL Normal 0.0-0.45 [facility] Comment on above: Performed By: #### C MP, CK, HS TROP, CBC #### [facility] [address] Automated erythrocytes count in urine sediment (number/area)Ordered By: Maciej Rodriguez on 09-06-2023 RBC Auto (Urine sed) [#/Area] 3-4 [HPF] 0-4 [facility] Automated leukocytes count i n urine sediment (number/area)Ordered By: Maciej Rodriguez on 09-06-2023 WBC Auto (Urine sed) [#/Area] 3-4 [HPF] 0-4 [facility] Automated monocyte %Ordered By: Maciej Rodriguez on 09-06-2023 Monocytes/100 WBC (Bld) 10.9 % Normal . [facility] Comment on above: Performed By: #### C MP, CK, HS TROP, CBC #### [facility] [address] [place] [address] Automated neutrophil %Ordere d By: Maciej Rodriguez on 09-06-2023 Neutrophils/100 WBC (Bld) 56.7 % Normal . [facility] Comment on above: Performed By: #### C MP, CK, HS TROP, CBC #### [address] Automated urine color determ inationOrdered By: Maciej Rodriguez on 09-06-2023 Color (U) Yellow Normal Yellow [facility] Comment on above: Order Comment: Name Collection Type:: Clean-Voided Midstream Performed By: #### C MP, CK, HS TROP, CBC #### [address] Barbiturates [Presence] in U rine by Screen methodOrdered By: Maciej Rodriguez on 09-06-2023 Barbiturates Screen Ql (U) Negative Negative [facility] Benzodiazepines Screen Ql (U )Ordered By: Maciej Rodriguez on 09-06-2023 Benzodiazepines Ql (U) Negative Negative [facility] Benzoylecgonine [Presence] i n Urine by Screen methodOrdered By: Maciej Rodriguez on 09-06-2023 Benzoylecgonine Screen Ql (U) Negative Negative [facility] Bilirubin Test strip Ql (U)O rdered By: Maciej Rodriguez on 09-06-2023 Bilirubin Ql (U) Negative Negative [facility] Bilirubin.total [Mass/volume ] in Serum or PlasmaOrdered By: Maciej Rodriguez on 09-06-2023 Bilirubin [Mass/Vol] 0.5 mg/dL Normal 0.3-1.0 [facility] Comment on above: Performed By: #### C MP, CK, HS TROP, CBC #### [facility] [address] COVID CepheidOrdered By: Ml Rodriguez on 09-06-2023 SARS-CoV-2 (COVID-19) Ab IA Ql Negative Negative [facility] Comment on above: This is a duplicate Cepheid Xpert Xpress CoV-2/Flu/RSV Plus RNA by RT-PCR result to be used for statistical tracking purpose only. SARS-CoV-2 (COVID-19) RNA NAOMIE+probe Ql (Unsp spec) [facility] COVID-19 / Flu A/B / RSV [...] or Cepheid Disclaimer revoked sooner. PERFORMED BY: [place] [address] PATHOLOGIST SURFACE GRINDER CORIE SILVA M.D. Normal [facility] Comment on above: Performed By: #### C MP, CK, HS TROP, CBC #### [address] head/brain wo conon 09-05 CT head/brain wo con [facility] [place] [address] CT Scan Report Signed Patient: Maegan Dye MR#: [id number] : 1950 Acct:[id number] Age/Sex: 73 / F ADM Date: 09/06/23 Loc: ER Room: Type: [facility] ER Attending Dr: Copies to: Maciej Rodriguez [...] Ángel Littlejohn M.D.09/06/2023 2:58 PM Dictation Location: [place] [address] Transcribed By: [facility] 09/06/23 1458 Dictated By: Ángel Littlejohn II, MD 09/06/23 1455 Signed By: 09/06/23 1458 Normal [facility] Calcium [Mass/volume] in Ser um or PlasmaOrdered By: Maciej Rodriguez on 09-06-2023 Calcium [Mass/Vol] 9.8 mg/dL Normal 8.6-10.3 [facility] Comment on above: Performed By: #### C MP, CK, HS TROP, CBC #### [facility] [address] [place] [address] Cannabinoids [Presence] in U rine by Screen methodOrdered By: Maciej Rodriguez on 09-06-2023 Cannabinoids Screen Ql (U) Negative Negative [facility] Comment on above: These are unconfirme d results and should not be used for legal purposes. Drug Cut-Off Concentration: AMPH 1000 ng/mL PHILL 200 ng/mL ROBERT 200 ng/mL COCM 300 ng/mL OP 300 ng/mL PCP 25 ng/mL THC 20 ng/mL Carbon dioxide, total [Moles /volume] in Serum or PlasmaOrdered By: Maciej Rodriguez on 09-06-2023 CO2 [Moles/Vol] 30.5 mmol/L Normal 21.0-31.0 [facility] Comment on above: Performed By: #### C MP, CK, HS TROP, CBC #### [address] Cepheid COVID PCR Negativeon 09-06-2023 SARS-CoV-2 (COVID-19) RNA NAOMIE+probe Ql (Unsp spec) Negative Normal Negative [facility] Comment on above: Result Comment: This is a duplicate Cepheid Xpert Xpress CoV-2/Flu/RSV Plus RNA by RT-PCR result to be used for statistical tracking purpose only. PERFORMED BY: [place] [address] PATHOLOGIST SURFACE GRINDER CORIE SILVA M.D. Performed By: #### C MP, CK, HS TROP, CBC #### [address] Chloride [Moles/volume] in S clarisa or PlasmaOrdered By: Maciej Rodriguez on 09-06-2023 Chloride [Moles/Vol] 97 mmol/L Low 98-107 [facility] Comment on above: Performed By: #### C MP, CK, HS TROP, CBC #### [address] Complete Blood Count Auto Di ffon 09-06-2023 Mean Corpuscular HGB Conc 32.4 g/dL Normal 32.0-35.0 [facility] Comment on above: Performed By: #### C MP, CK, HS TROP, CBC #### [place] [address] [place] Monocytes/100 WBC (Bld) 15.52 % Normal 0.00-20.00 [facility] Comment on above: Performed By: #### C MP, CK, HS TROP, CBC #### [address] NRBC% 0.1 /100{WBC} Normal 0-0.5 [facility] Comment on above: Performed By: #### C MP, CK, HS TROP, CBC #### [address] Comprehensive Metabolic Pane isauro 09-06-2023 Albumin [Mass/Vol] 4.1 g/dL Normal 3.5-5.7 [facility] Comment on above: Performed By: #### C MP, CK, HS TROP, CBC #### [address] Creatinine Clr Calc Pharmacy 31.85 Normal [facility] Comment on above: Result Comment: PERF ORMED BY: [place] [address] PATHOLOGIST SURFACE GRINDER CORIE SILVA M.D. Performed By: #### C MP, CK, HS TROP, CBC #### [address] GFR/1.73 sq M.predicted MDRD (S/P/Bld) [Vol rate/Area] 42.104 mL/min/{1.73_m2} Normal [facility] Comment on above: Performed By: #### C MP, CK, HS TROP, CBC #### [address] Creatinine [Mass/volume] in Serum or PlasmaOrdered By: Maciej Rodriguez on 09-06-2023 Creatinine [Mass/Vol] 1.32 mg/dL High 0.60-1.[address] [facility] Comment on above: Performed By: #### C MP, CK, HS TROP, CBC #### [address] Dipstick and Microscopicon 0 09-06-2023 Appearance (U) Clear Normal Clear [facility] Comment on above: Order Comment: Name Collection Type:: Clean-Voided Midstream Performed By: #### C MP, CK, HS TROP, CBC #### [address] Bacteria,Urine 1+ High None Seen [facility] Comment on above: Order Comment: Name Collection Type:: Clean-Voided Midstream Performed By: #### C MP, CK, HS TROP, CBC #### [facility] [address] [place] [address] [place] Bilirubin,Urine Negative Normal Negative [facility] Comment on above: Order Comment: Name Collection Type:: Clean-Voided Midstream Performed By: #### C MP, CK, HS TROP, CBC #### [facility] [address] Glucose Ql (U) Normal Normal Normal [facility] Comment on above: Order Comment: Name Collection Type:: Clean-Voided Midstream Performed By: #### C MP, CK, HS TROP, CBC #### [place] [address] [place] Hyaline Casts,Urine 0-8 Normal 0-8 [facility] Comment on above: Order Comment: Name Collection Type:: Clean-Voided Midstream Performed By: #### C MP, CK, HS TROP, CBC #### [place] [address] [place] Ketones Ql (U) Negative Normal Negative [facility] Comment on above: Order Comment: Name Collection Type:: Clean-Voided Midstream Performed By: #### C MP, CK, HS TROP, CBC #### [address] Leukocyte esterase Test strip Ql (U) 2+ High Negative [facility] Comment on above: Order Comment: Name Collection Type:: Clean-Voided Midstream Performed By: #### C MP, CK, HS TROP, CBC #### [place] [address] [place] Nitrite,Urine Negative Normal Negative [facility] Comment on above: Order Comment: Name Collection Type:: Clean-Voided Midstream Performed By: #### C MP, CK, HS TROP, CBC #### [address] Occult Blood,Urine Negative Normal Negative [facility] Comment on above: Order Comment: Name Collection Type:: Clean-Voided Midstream Result Comment: PERF ORMED BY: [place] [address] PATHOLOGIST SURFACE GRINDER CORIE SILVA M.D. Performed By: #### C MP, CK, HS TROP, CBC #### [address] Protein,Urine Negative Normal Negative [facility] Comment on above: Order Comment: Name Collection Type:: Clean-Voided Midstream Performed By: #### C MP, CK, HS TROP, CBC #### [address] RBC,Urine 3-4 Normal 0-4 [facility] Comment on above: Order Comment: Name Collection Type:: Clean-Voided Midstream Performed By: #### C MP, CK, HS TROP, CBC #### [address] Specificy [place],Urine 1.011 Normal 1.001-1.03 0 [facility] Comment on above: Order Comment: Name Collection Type:: Clean-Voided Midstream Performed By: #### C MP, CK, HS TROP, CBC #### [address] Squamous Epithelial Cell,Urine 5-9 High 0-2 [facility] Comment on above: Order Comment: Name Collection Type:: Clean-Voided Midstream Performed By: #### C MP, CK, HS TROP, CBC #### [address] Urobilinogen,Urine Normal Normal Normal [facility] Comment on above: Order Comment: Name Collection Type:: Clean-Voided Midstream Performed By: #### C MP, CK, HS TROP, CBC #### [place] [address] [place] WBC,Urine 3-4 Normal 0-4 [facility] Comment on above: Order Comment: Name Collection Type:: Clean-Voided Midstream Performed By: #### C MP, CK, HS TROP, CBC #### [place] [address] [place] Yeast,Urine None Seen Normal None Seen [facility] Comment on above: Order Comment: Name Collection Type:: Clean-Voided Midstream Result Comment: PERF ORMED BY: [place] [address] PATHOLOGIST SURFACE GRINDER CORIE SILVA M.D. Performed By: #### C MP, CK, HS TROP, CBC #### [address] Drug Screen,Urineon 09-06-19 24 Amphetamine Screen,Urine Negative Normal Negative [facility] Comment on above: Performed By: #### C MP, CK, HS TROP, CBC #### [address] Barbiturate Screen,Urine Negative Normal Negative [facility] Comment on above: Performed By: #### C MP, CK, HS TROP, CBC #### [address] Benzodiazepines Screen,Urine Negative Normal Negative [facility] Comment on above: Performed By: #### C MP, CK, HS TROP, CBC #### [address] Cannabinoid Screen,Urine Negative Normal Negative [facility] Comment on above: Result Comment: Thes e are unconfirmed results and should not be used for legal purposes. Drug Cut-Off Concentration: AMPH 1000 ng/mL PHILL 200 ng/mL ROBERT 200 ng/mL COCM 300 ng/mL OP 300 ng/mL PCP 25 ng/mL THC 20 ng/mL PERFORMED BY: [place] [address] PATHOLOGIST SURFACE GRINDER CORIE SILVA M.D. Performed By: #### C MP, CK, HS TROP, CBC #### [address] Cocaine Screen,Urine Negative Normal Negative [facility] Comment on above: Performed By: #### C MP, CK, HS TROP, CBC #### [place] [address] [place] Opiate Screen,Urine Positive High Negative [facility] Comment on above: Performed By: #### C MP, CK, HS TROP, CBC #### [address] Phencyclidine Screen,Urine Negative Normal Negative [facility] Comment on above: Performed By: #### C MP, CK, HS TROP, CBC #### [address] Erythrocyte distribution wid th [Ratio] by Automated countOrdered By: Maciej Rodriguez on 09-06-2023 Erythrocyte distribution width (RBC) [Ratio] 12.8 % Normal 11.9-15.3 [facility] Comment on above: Performed By: #### C MP, CK, HS TROP, CBC #### [address] Erythrocytes [#/volume] in B lood by Automated countOrdered By: Maciej Rodriguez on 09-06-2023 RBC (Bld) [#/Vol] 4.73 10*6/uL Normal 3.60-5.00 [facility] Comment on above: Performed By: #### C MP, CK, HS TROP, CBC #### [address] Ethanol [Mass/volume] in Ser um or PlasmaOrdered By: Maciej Rodriguez on 09-06-2023 Ethanol [Mass/Vol] mg/dL Normal [facility] Comment on above: Performed By: #### C MP, CK, HS TROP, CBC #### [address] Ethanol [Mass/Vol] TNP [facility] Comment on above: Test not performed Ethyl Alcohol Profileon 08-24 Percent Ethanol Not performed Normal [facility] Comment on above: Result Comment: PERF ORMED BY: [place] [address] PATHOLOGIST SURFACE GRINDER CORIE SILVA M.D. Performed By: #### C MP, CK, HS TROP, CBC #### [address] Glucose [Mass/volume] in Ser um or PlasmaOrdered By: Maciej Rodriguez on 09-06-2023 Glucose [Mass/Vol] 115 mg/dL High 70-100 [facility] Comment on above: ADA recommended refe rence rangeRandom Glucose Reference Range is dependent on time and content of last meal. Glucose of more than 200 mg/dL in a nonstressed, ambulatory subject supports the diagnosis of Diabetes Mellitus. Result Comment: [place] om Glucose Reference Range is dependent on time and content of last meal. Glucose of more than 200 mg/dL in a nonstressed, ambulatory subject supports the diagnosis of Diabetes Mellitus. ADA recommended reference range Performed By: #### C MP, CK, HS TROP, CBC #### [facility] [address] Hematocrit [Volume Fraction] of Blood by Automated countOrdered By: Maciej Rodriguez on 09-06-2023 Hematocrit (Bld) [Volume fraction] 41.2 % Normal 34.0-46.4 [facility] Comment on above: Performed By: #### C MP, CK, HS TROP, CBC #### [facility] [address] Hemoglobin [Mass/volume] in BloodOrdered By: Maciej Rodriguez on 09-06-2023 Hemoglobin (Bld) [Mass/Vol] 13.3 g/dL Normal 11.8-15.4 [facility] Comment on above: Performed By: #### C MP, CK, HS TROP, CBC #### [facility] [address] Ketones Auto test strip (U) [Mass/Vol]Ordered By: Maciej Rodriguez on 09-06-2023 Ketones (U) [Mass/Vol] Negative Negative [facility] - UrinalysisOrder ed By: Maciej Rodriguez on 09-06-2023 Hyaline casts LM Ql (Urine sed) 0-8 [LPF] 0-8 [facility] Leukocytes [#/volume] correc kenyatta for nucleated erythrocytes in Blood by Automated counOrdered By: Maciej Rodriguez on 09-06-2023 WBC corrected for nucl RBC Auto (Bld) [#/Vol] 5.9 10*3/uL 3.8-11.6 [facility] Leukocytes [#/volume] in Blo od by Automated countOrdered By: Maciej Rodriguez on 09-06-2023 WBC (Bld) [#/Vol] 5.9 10*3/uL Normal 3.8-11.6 [facility] Comment on above: Performed By: #### C MP, CK, HS TROP, CBC #### [facility] [address] Lymphocytes [#/volume] in Bl ood by Automated countOrdered By: Maciej Rodriguez on 09-06-2023 Lymphocytes (Bld) [#/Vol] 1.7 10*3/uL Normal 1.00-4.8 [facility] Comment on above: Performed By: #### C MP, CK, HS TROP, CBC #### [facility] [address] Lymphocytes/100 leukocytes i n Blood by Automated countOrdered By: Maciej Rodriguez on 09-06-2023 Lymphocytes/100 WBC (Bld) 28.5 % Normal . [facility] Comment on above: Performed By: #### C MP, CK, HS TROP, CBC #### [facility] [address] [place] [address] MCH [Entitic mass] by Automa kenyatta countOrdered By: Maciej Rodriguez on 09-06-2023 MCH (RBC) [Entitic mass] 28.2 pg Normal 24.7-34.3 [facility] Comment on above: Performed By: #### C MP, CK, HS TROP, CBC #### [facility] [address] [place] [address] MCHC Auto (RBC) [Mass/Vol]Or dered By: Maciej Rodriguez on 09-06-2023 MCHC (RBC) [Mass/Vol] 32.4 g/dL 32.0-35.[address] [facility] MCV [Entitic volume] by Auto mated countOrdered By: Maciej Rodriguez on 09-06-2023 MCV (RBC) [Entitic vol] 87.1 fL Normal 80-100 [facility] Comment on above: Performed By: #### C MP, CK, HS TROP, CBC #### [facility] [address] Monocyte distribution width [Entitic volume] in Blood by AutomatedOrdered By: Maciej Rodriguez on 09-06-2023 Monocyte distribution width Auto (Bld) [Entitic vol] 15.52 % 0.00-20.00 [facility] Neutrophils [#/volume] in Bl ood by Automated countOrdered By: Maciej Rodriguez on 09-06-2023 Neutrophils (Bld) [#/Vol] 3.3 10*3/uL Normal 1.8-7.7 [facility] Comment on above: Performed By: #### C MP, CK, HS TROP, CBC #### [facility] [address] Nitrite Test strip Ql (U)Ord ered By: Maciej Rodriguez on 09-06-2023 Nitrite Ql (U) Negative Negative [facility] No Panel InformationOrdered By: Maciej Rodriguez on 09-06-2023 Estimated GFR (CKD-EPI) 42.104 mL/Min [facility] Creatinine Clearance (Chem 31.85 [facility] Nucleated erythrocytes [Pres ence] in Blood by Automated countOrdered By: Maciej Rodriguez on 09-06-2023 Nucleated RBC Auto Ql (Bld) 0.1 /100{WBC} 0-0.5 [facility] Opiates [Presence] in Urine by Screen methodOrdered By: Maciej Rodriguez on 09-06-2023 Opiates Screen Ql (U) Positive Negative [facility] Phencyclidine Screen Ql (U)O rdered By: Maciej Rodriguez on 09-06-2023 Phencyclidine Ql (U) Negative Negative [facility] Platelet mean volume [Entiti c volume] in Blood by Automated countOrdered By: Maciej Rodriguez on 09-06-2023 Platelet mean volume (Bld) [Entitic vol] 7.4 fL Normal 6.3-10.7 [facility] Comment on above: Performed By: #### C MP, CK, HS TROP, CBC #### [facility] [address] Platelets [#/volume] in Bloo d by Automated countOrdered By: Maciej Rodriguez on 09-06-2023 Platelets (Bld) [#/Vol] 277 10*3/uL Normal 150-450 [facility] Comment on above: Performed By: #### C MP, CK, HS TROP, CBC #### [address] Potassium [Moles/volume] in Serum or PlasmaOrdered By: Maciej Rodriguez on 09-06-2023 Potassium [Moles/Vol] 4.5 mmol/L Normal 3.5-5.[address] [facility] Comment on above: Performed By: #### C MP, CK, HS TROP, CBC #### [address] Protein Auto test strip (U) [Mass/Vol]Ordered By: Maciej Rodriguez on 09-06-2023 Protein (U) [Mass/Vol] Negative Negative [facility] Protein [Mass/volume] in Ser um or PlasmaOrdered By: Maciej Rodriguez on 09-06-2023 Protein [Mass/Vol] 7.5 g/dL Normal 6.4-8.9 [facility] Comment on above: Performed By: #### C MP, CK, HS TROP, CBC #### [address] Serum globulin measurement b y calculation (mass/volume)Ordered By: Maciej Rodriguez on 09-06-2023 Globulin (S) [Mass/Vol] 3.4 g/dL [facility] Comment on above: Performed By: #### C MP, CK, HS TROP, CBC #### [address] Serum or plasma albumin/glob ulin mass ratioOrdered By: Maciej Rodriguez on 09-06-2023 Albumin/Globulin [Mass ratio] 1.2 {ratio} [facility] Comment on above: Performed By: #### C MP, CK, HS TROP, CBC #### [address] Serum or plasma anion gap de terminationOrdered By: Maciej Rodriguez on 09-06-2023 Anion gap [Moles/Vol] 11.0 mmol/L Normal 6.0-15.0 [facility] Comment on above: Performed By: #### C MP, CK, HS TROP, CBC #### [facility] [address] Sodium [Moles/volume] in Ser um or PlasmaOrdered By: Maciej Rodriguez on 09-06-2023 Sodium [Moles/Vol] 134 mmol/L Low 136-145 [facility] Comment on above: Performed By: #### C MP, CK, HS TROP, CBC #### [facility] [address] Specific gravity Auto test s trip (U) [Rel density]Ordered By: Maciej Rodriguez on 09-06-2023 Specific gravity (U) [Rel density] 1.011 1.001-1.03 0 [facility] Squamous epithelial cells de tection in urine sediment by light microscopyOrdered By: Maciej Rodriguez on 09-06-2023 Epithelial cells.squamous LM Ql (Urine sed) 5-9 [HPF] 0-2 [facility] Troponin I High Sensitivityo n 09-06-2023 Troponin I High Sensitivity 2.7 pg/mL Normal 0.0-15.0 [facility] Comment on above: Result Comment: PERF ORMED BY: [place] [address] PATHOLOGIST SURFACE GRINDER CORIE SILVA M.D. Performed By: #### C MP, CK, HS TROP, CBC #### [address] Troponin I.cardiac [Mass/vol ume] in Serum or Plasma by Detection limit <= 0.01 ng/Ordered By: Maciej Rodriguez on 09-06-2023 Troponin I.cardiac DL <= 0.01 ng/mL [Mass/Vol] 2.7 pg/mL 0.0-15.0 [facility] Urea nitrogen [Mass/volume] in Serum or PlasmaOrdered By: Maciej Rodriguez on 09-06-2023 Urea nitrogen [Mass/Vol] 18 mg/dL Normal 7-25 [facility] Comment on above: Performed By: #### C MP, CK, HS TROP, CBC #### [facility] [address] Urine bacteria detection by automated methodOrdered By: Maciej Rodriguez on 09-06-2023 Bacteria Auto Ql (U) 1+ None Seen [facility] Urine clarity by refractomet ry automatedOrdered By: Maciej Rodriguez on 09-06-2023 Clarity Refractometry automated (U) Clear Clear [facility] Urine glucose measurement by automated test strip (mass/volume)Ordered By: Maciej Rodriguez on 09-06-2023 Glucose Auto test strip (U) [Mass/Vol] Normal mg/dL Normal [facility] Urine hemoglobin detection b y automated test stripOrdered By: Maciej Rodriguez on 09-06-2023 Hemoglobin Auto test strip Ql (U) Negative Negative [facility] Urine leukocyte esterase det ection by automated test stripOrdered By: Maciej Rodriguez on 09-06-2023 Leukocyte esterase Auto test strip Ql (U) 2+ Negative [facility] Urine pH measurement by auto mated test stripOrdered By: Maciej Rodriguez on 09-06-2023 pH (U) 6.5 [pH] Normal 5.0-9.0 [facility] Comment on above: Order Comment: Name Collection Type:: Clean-Voided Midstream Performed By: #### C MP, CK, HS TROP, CBC #### [facility] [address] [place] [address] [place] Urobilinogen Auto test strip (U) [Mass/Vol]Ordered By: Maciej Rodriguez on 09-06-2023 Urobilinogen (U) [Mass/Vol] Normal mg/dL Normal [facility] XR chest 2V*on 09-06-2023 XR chest 2V* [facility] [place] [address] XRay Report Signed Patient: Maegan Dye MR#: [id number] : 1950 Acct:[id number] Age/Sex: 73 / F ADM Date: 09/06/23 Loc: ER Room: Type: REG ER Attending Dr: Copies to: Maciej Rodriguez [...] Ángel Littlejohn M.D.09/06/2023 3:17 PM Dictation Location: [place] [address] Transcribed By: [facility] 09/06/23 1517 Dictated By: Ángel Littlejohn II, MD 09/06/23 1516 Signed By: 09/06/23 1517 Normal [facility] Yeast detection in urine sed iment by light microscopyOrdered By: Maciej Rodriguez on 09-06-2023 Yeast LM Ql (Urine sed) None seen [HPF] None Seen [facility] Cholesterol [Mass/volume] in Serum or PlasmaOrdered By: Julian Arechiga on 08-28-2023 Cholesterol [Mass/Vol] 151 mg/dL Normal 140-200 [facility] Comment on above: Chol less than 200 m g/dl low riskChol 201-239 mg/dl borderline riskChol 240 mg/dl and greater high risk Result Comment: Chol less than 200 mg/dl low risk Chol 201-239 mg/dl borderline risk Chol 240 mg/dl and greater high risk Performed By: #### T SH3 wRFLX, [id number], LIPID #### [facility] [address] [place] [address] Cholesterol in LDL Calc [Mas s/Vol]Ordered By: Julian Arechiga on 08-28-2023 Cholesterol in LDL [Mass/Vol] 94 mg/dL 0-100 [facility] Comment on above: LDL ATP III CLASSIFI CATIONLDL less than 100 mg/dL OptimalLDL 100-129 mg/dL Near or above optimalLDL 130-159 mg/dL Borderline highLDL 160-189 mg/dL HighLDL greater than 189 mg/dL Very high Cholesterol in VLDL Calc [Ma ss/Vol]Ordered By: Julian Arechiga on 08-28-2023 Cholesterol in VLDL [Mass/Vol] 15 mg/dL [facility] Lipid Panelon 08-28-2023 LDL Cholesterol,Calculated 94 mg/dL Normal 0-100 [facility] Comment on above: Result Comment: LDL ATP III CLASSIFICATION LDL less than 100 mg/dL Optimal LDL 100-129 mg/dL Near or above optimal LDL 130-159 mg/dL Borderline high LDL 160-189 mg/dL High LDL greater than 189 mg/dL Very high Performed By: #### T SH3 wRFLX, [id number], LIPID #### [facility] [address] Triglyceride w/Reflex 79 mg/dL Normal 0-149 [facility] Comment on above: Result Comment: TRIG ATP III CLASSIFICATION TRIG less than 150 mg/dL Normal TRIG 150-199 mg/dL Borderline high TRIG 200-500 mg/dL High TRIG greater than 500 mg/dL Very high Standard traceable to the Center for Disease Conrtrol and Prevention (CDC) test method. Performed By: #### T SH3 wRFLX, [id number], LIPID #### [facility] [address] VLDL CHOLESTEROL 15 mg/dL Normal [facility] Comment on above: Performed By: #### T SH3 wRFLX, [id number], LIPID #### [facility] [address] Serum or plasma high density lipoprotein (HDL) cholesterol measurementOrdered By: Julian Arechiga on 08-28-2023 Cholesterol in HDL [Mass/Vol] 41 mg/dL Normal 23-92 [facility] Comment on above: HDL CHOL ATP-III CLA SSIFICATION Cardiovascular RiskHDL > or equal to 60 mg/dL LOWHDL < 40 mg/dL HIGH Result Comment: HDL CHOL ATP-III CLASSIFICATION Cardiovascular Risk HDL > or equal to 60 mg/dL LOW HDL < 40 mg/dL HIGH Performed By: #### T SH3 wRFLX, [id number], LIPID #### [facility] [address] [place] [address] [place] Serum or plasma total choles terol/high density lipoprotein (HDL) cholesterol mass ratOrdered By: Julian Arechiga on 08-28-2023 Cholesterol.total/Chol esterol in HDL [Mass ratio] 3.7 {ratio} Normal <5.0 [facility] Comment on above: Performed By: #### T SH3 wRFLX, [id number], LIPID #### [facility] [address] Thyroid Stim Hormone w/Rflxo n 08-28-2023 Thyroid Stim Hormone w/Rflx 2.83 u[iU]/mL Normal 0.45-5.33 [facility] Comment on above: Performed By: #### T SH3 wRFLX, [id number], LIPID #### [facility] [address] [place] [address] Thyrotropin [Units/volume] i n Serum or PlasmaOrdered By: Julian Arechiga on 08-28-2023 TSH Qn 2.83 m[IU]/L 0.45-5.33 [facility] Triglyceride [Mass/volume] i n Serum or PlasmaOrdered By: Julian Arechiga on 08-28-2023 Triglyceride [Mass/Vol] 79 mg/dL 0-149 [facility] Comment on above: TRIG ATP III CLASSIF ICATIONTRIG less than 150 mg/dL NormalTRIG 150-199 mg/dL Borderline highTRIG 200-500 mg/dL High TRIG greater than 500 mg/dL Very highStandard traceable to the Center for Disease Conrtrol and Prevention (CDC) test method. Vitamin D 25 Hydroxy Totalon 08-28-2023 Vitamin D 25 Hydroxy Total 47.6 ng/mL Normal 30-100 [facility] Comment on above: Result Comment: GAGE MIN D STATUS 25(OH)VITAMIN D RANGE (ng/mL) Deficient <20 Insufficient 20 to <30 Sufficient 30 to 100 Reference: Mahesh MF,[place], Omega CABRERA, et al. Evaluation,treatment, and prevention of vitamin D deficiency; an Endocrine Society clinical practice guideline. JCEM. 2010; 96(7):191-. PERFORMED BY: [facility] [address] [facility] [place] [address] PATHOLOGIST SURFACE GRINDER CORIE SILVA M.D. Performed By: #### T SH3 wRFLX, [id number], LIPID #### [facility] [address] Vitamin D+Metabolites [Mass/ volume] in Serum or PlasmaOrdered By: Julian Arechiga on 08-28-2023 Vitamin D+Metabolites [Mass/Vol] 47.6 ng/mL 30-100 [facility] Comment on above: VITAMIN D STATUS 25( OH)VITAMIN D RANGE (ng/mL) Deficient <20 Insufficient 20 to <30Sufficient 30 to 100Reference: Mahesh MF,[place] MCNEAL, Omega CABRERA, et al. Evaluation,treatment, and prevention of vitamin D deficiency; an Endocrine Society clinical practice guideline. JCEM. 2010; 96(7):1911-30. CBC w/ Auto Diffon 4 Basophils/100 WBC (Bld) 0.8 % Normal 0.0-2.0 [facility] Comment on above: Performed By: #### 2 [id number], [id number], [id number] ####[facility] [address] [place] [address] Basophils/Leukocytes Auto (Bld) [Pure # fraction] 0.1 E9/L Normal 0.0-0.2 [facility] Comment on above: Performed By: #### 2 [id number], [id number], [id number] ####[facility] [id number] [place] [address] Eosinophils (Bld) [#/Vol] 0.2 E9/L Normal 0.0-0.5 [facility] Comment on above: Performed By: #### 2 [id number], [id number], [id number] ####[facility] [id number] [place] [address] Eosinophils/100 WBC (Bld) 3.2 % Normal 0.0-8.0 [facility] Comment on above: Performed By: #### 2 [id number], [id number], [id number] ####[address] [address] Erythrocyte distribution width (RBC) [Ratio] 13.2 % Normal 10.9-14.2 [facility] Comment on above: Performed By: #### 2 [id number], [id number], [id number] ####[address] [address] Hematocrit (Bld) [Volume fraction] 40.9 % Normal 34.0-46.0 [facility] Comment on above: Performed By: #### 2 [id number], [id number], [id number] ####[address] [address] Hemoglobin (Bld) [Mass/Vol] 13.2 g/dL Normal 12.0-16.0 [facility] Comment on above: Performed By: #### 2 115946, [id number], [id number] ####[address] [address] Lymphocytes (Bld) [#/Vol] 1.3 E9/L Normal 1.0-4.0 [facility] Comment on above: Performed By: #### 2 775002, [id number], 3607596 ####[address] [address] Lymphocytes/100 WBC (Bld) 19.7 % Normal 14.0-50.0 [facility] Comment on above: Performed By: #### 2 821789, 38877942, 0014436 ####[address] [address] MCH (RBC) [Entitic mass] 28.3 pg Normal 27.0-34.0 [facility] Comment on above: Performed By: #### 2 653107, 33116090, 1109893 ####[address] [address] MCHC (RBC) [Mass/Vol] 32.3 g/dL Normal 31.4-36.0 [facility] Comment on above: Performed By: #### 2 560675, 90275480, 6659362 ####[address] [address] MCV (RBC) [Entitic vol] 87.8 fL Normal 80.0-100.0 [facility] Comment on above: Performed By: #### 2 215113, 46888483, 7395788 ####[address] [address] Monocytes (Bld) [#/Vol] 0.6 E9/L Normal 0.2-1.0 [facility] Comment on above: Performed By: #### 2 020215, 90016446, 0966126 ####[address] [address] Neutrophils (Bld) [#/Vol] 4.4 E9/L Normal 2.0-7.5 [facility] Comment on above: Performed By: #### 2 825811, 42661476, 1520525 ####[address] [address] Neutrophils/100 WBC (Bld) 67.4 % Normal 36.0-75.0 [facility] Comment on above: Performed By: #### 2 070492, 76726835, 6866517 ####[address] [address] Platelet 236.0 E9/L Normal 150.0-500. 0 [facility] Comment on above: Performed By: #### 2 087251, 33691030, 3334189 ####[address] [address] Platelet mean volume (Bld) [Entitic vol] 7.3 fL Normal 6.4-10.8 [facility] Comment on above: Performed By: #### 2 015881, 49685549, 1121736 ####[address] [address] RBC (Bld) [#/Vol] 4.7 E12/L Normal 4.3-5.9 [facility] Comment on above: Performed By: #### 2 796487, 40809435, 9758354 ####[facility] [address] [place] [address] WBC corrected for nucl RBC Auto (Bld) [#/Vol] 6.6 E9/L Normal 4.0-11.0 [facility] Comment on above: Performed By: #### 2 873858, 12761399, 0917993 ####[facility] [address] [place] [address] CHEMISTRYOrdered By: SYSTEM SYSTEM on 08-27-2023 Albumin [...] 08-27-2023 Albumin [Mass/Vol] 4.1 g/dL Normal 3.3-5.0 [facility] Comment on above: Performed By: #### 2 684964, 61301221, 9575109 ####[facility] [address] [place] [address] Albumin/Globulin (S) [Mass conc ratio] 1.4 Normal 1.1-2.2 [facility] Comment on above: Performed By: #### 2 908518, 93148916, 9207389 ####[facility] [address] [place] [address] ALP [Catalytic activity/Vol] 77 Int._Unit/L Normal 21-98 [facility] Comment on above: Performed By: #### 2 332017, 19745886, 8970241 ####[facility] [address] [place] [address] ALT No additional P-5'-P [Catalytic activity/Vol] 10 Int._Unit/L Normal 6-46 [facility] Comment on above: Performed By: #### 2 382331, 48066049, 1239758 ####[facility] [address] [place] [address] Anion gap [Moles/Vol] 11 mmol/L Normal 6-16 [facility] Comment on above: Performed By: #### 2 801087, 27115225, 3940827 ####[facility] [address] [place] [address] AST [Catalytic activity/Vol] 23 Int._Unit/L Normal 5-43 [facility] Comment on above: Performed By: #### 2 577150, 26518383, 2912507 ####[facility] [address] [place] [address] Bilirubin [Mass/Vol] 1.0 mg/dL Normal 0.0-1.1 [facility] Comment on above: Performed By: #### 2 799336, 76029465, 2531896 ####[facility] [address] [place] [address], [place] [address] Calcium [Mass/Vol] 9.2 mg/dL Normal 8.9-11.1 [facility] Comment on above: Performed By: #### 2 111318, 41836703, 3635511 ####[facility] [address] [place] [address] Chloride [Moles/Vol] 104 mmol/L Normal 101-111 [facility] Comment on above: Performed By: #### 2 269654, 05245262, 7362944 ####[facility] [address] [place] [address] CO2 [Moles/Vol] 28 mmol/L Normal 21-31 [facility] Comment on above: Performed By: #### 2 675292, 96526355, 8735291 ####[facility] [address] [place] [address] Creatinine [Mass/Vol] 1.1 mg/dL Normal 0.5-1.3 [facility] Comment on above: Performed By: #### 2 383499, 79488880, 2113897 ####[facility] [address] [place] [address] Globulin (S) [Mass/Vol] 3.0 g/dL Normal 1.4-4.0 [facility] Comment on above: Performed By: #### 2 604359, 59712588, 5363818 ####[facility] [address] [place] [address] Glucose [Mass/Vol] 116 mg/dL Normal 55-199 [facility] Comment on above: Performed By: #### 2 635057, 45787530, 0183488 ####[facility] [address] [place] [address] Potassium [Moles/Vol] 3.4 mmol/L Low 3.5-5.3 [facility] Comment on above: Performed By: #### 2 856189, 80811507, 0357980 ####[facility] [address] [place] [address] Protein [Mass/Vol] 7.1 g/dL Normal 6.0-7.8 [facility] Comment on above: Performed By: #### 2 429213, 40300732, 3100269 ####[facility] [address] [place] [address] Sodium [Moles/Vol] 140 mmol/L Normal 135-145 [facility] Comment on above: Performed By: #### 2 327314, 26377373, 7990124 ####[facility] [address] [place] [address] Urea nitrogen [Mass/Vol] 10 mg/dL Normal 5-21 [facility] Comment on above: Performed By: #### 2 742188, 64300842, 7894907 ####[facility] [address] [place] [address] Urea nitrogen/Creatinine [Mass ratio] 9 No Units Low 10-20 [facility] Comment on above: Performed By: #### 2 745604, 46590091, 3801701 ####[facility] [address] [place] [address] Consent for Treatmenton 04-0 Consent for Treatment [id number]#[id number] Normal [facility] ED Clinical Summaryon 2023 ED Clinical Summary Normal [facility] ED Note-Physicianon 08-27-19 ED Note-Physician Normal [facility] Comment on above: Result Comment: Elec tronically Signed By: Rodrigue John PA-C\.br\Date and Time Signed: 08/27/23 11:50 EDT\.br\Electronically Co-Signed By: Johny Willson DO.br\Date and Time Co-Signed: 08/27/23 13:24 EDT ED Patient Education Noteon 08-27-2023 ED Patient Education Note Normal [facility] ED Patient Summaryon 024 ED Patient Summary Normal [facility] Ethanolon 08-27-2023 Ethanol Lvl <10 Normal <=11 [facility] Comment on above: Performed By: #### 2 164550 ####[facility] [address] [place] [address] HEMATOLOGYOrdered By: SYSTEM SYSTEM on 08-27-2023 Basophils/100 [...] Remisol Heme Outside Recordson 08-27-2023 Outside Records [id number]#[id number] Normal [facility] Transfer Documentson 024 Transfer Documents [id number]#1.00TIFF Normal [facility] U Drug Screenon 08-27-2023 Amphetamines Screen method >1000 ng/mL Ql (U) Negative Normal NEGATIVE [facility] Comment on above: Result Comment: Nega tishaw Cutoff: <1000 ng/mL Performed By: #### 2 162856 ####[facility] [address] [place] [address] Barbiturates Screen Ql (U) Negative Normal NEGATIVE [facility] Comment on above: Result Comment: Nega tive Cutoff: <200 ng/mL Performed By: #### 2 881984 ####[facility] [address] [place] [address] Benzodiazepines Ql (U) Negative Normal NEGATIVE Fi [facility] Comment on above: Result Comment: Nega tive Cutoff: <200 ng/mL Performed By: #### 2 805937 ####[facility] [address] [place] [address] Cannabinoids Screen Ql (U) Negative Normal NEGATIVE [facility] Comment on above: Result Comment: Nega tive Cutoff: <50 ng/mL Performed By: #### 2 809647 ####[address] [address] Cocaine Ql (U) Negative Normal NEGATIVE [facility] Comment on above: Result Comment: Nega tive Cutoff: <300 ng/mL Performed By: #### 2 091813 ####[address] [address] Opiates Screen Ql (U) Positive Abnormal NEGATIVE Fis [facility] Comment on above: Result Comment: Resu lt Verified by Repeat AnalysisUnconfirmed by an Alternate MethodNo Confirmation Requested by PhysicianResult called to Mary Lou (ER) by DARLIN at 1018Negative Cutoff: <300 ng/mL Performed By: #### 2 468839 ####[address] [address] Phencyclidine Screen method >25 ng/mL Ql (U) Negative Normal NEGATIVE [facility] Comment on above: Result Comment: Nega tive Cutoff: <25 ng/mLThese drug screen results are to be used for medical (i.e., treatment) purposes only. Unconfirmed drug screening results must not be used for non-medical purposes (e.g., employment testing, legal testing). Performed By: #### 2 432856 ####[facility] [address] [place] [address] U Fentanyl Negative Normal NEGATIVE [facility] Comment on above: Result Comment: Nega tive Cutoff: <5 ng/mLThese drug screen results are to be used for medical (i.e., treatment) purposes only. Unconfirmed drug screening results must not be used for non-medical purposes (e.g., employment testing, legal testing). Performed By: #### 2 433796 ####[facility] [address] [place] [address] UA with Cult Rflxon 08-27-19 24 Color (U) Light-Yellow Normal Yellow [facility] Comment on above: Result Comment: Micr oscopic readings are only performed on those samples that meet specific criteria set forth by [facility]. Performed By: #### 4 [id number] ####[place] [place] [place] [address] Glucose (U) [Mass/Vol] Negative Normal Negative [facility] Comment on above: Performed By: #### 4 [id number] ####[address] [address] Ketones Ql (U) Negative Normal Negative [facility] Comment on above: Performed By: #### 4 [id number] ####[facility] [address] [place] [address] UA Blood Negative Normal Negative [facility] Comment on above: Performed By: #### 4 [id number] ####[address] [place] [address] UA Clarity Clear Normal Clear [facility] Comment on above: Performed By: #### 4 [id number] ####[address] [place] [address] UA Leuk Est Negative Normal Negative [facility] Comment on above: Performed By: #### 4 [id number] ####[address] [place] [address] UA Nitrite Negative Normal Negative [facility] Comment on above: Performed By: #### 4 [id number] ####[address] [place] [address] UA pH 6.0 Invalid Interpretation Code 5.0-9.0 [facility] Comment on above: Performed By: #### 4 [id number] ####[facility] [address] [place] [address] UA Protein Negative Normal Negative [facility] Comment on above: Performed By: #### 4 [id number] ####[facility] [address] [facility] [place] [address] UA Spec Grav 1.014 Invalid Interpretation Code 1.005-1.03 0 [facility] Comment on above: Performed By: #### 4 [id number] ####[facility] [address] [place] [address] UA Urobilinogen Negative Normal Negative [facility] Comment on above: Performed By: #### 4 [id number] ####[facility] [address] [place] [address] Urobilinogen (U) [Mass/Vol] Negative Normal Negative [facility] Comment on above: Performed By: #### 4 [id number] ####[facility] [address] [place] [address] UA Spec Desc Catheter Normal [facility] Comment on above: Performed By: #### 4 [id number] ####[facility] [address] [place] [address] URINALYSISOrdered By: SYSTEM SYSTEM on 08-27-2023 Color (U) Light-Yellow 3 (08/27/23 8:49 AM) Normal Yellow FT UA Auto SS Comment on above: Interpretive Data: M icroscopic readings are only performed on those samples that meet specific criteria set forth by [facility]. Glucose (U) [Mass/Vol] Negative Normal Negat ivemg /dL FT UA Auto SS Ketones Ql (U) Negative Normal Negativemg /dL FT UA Auto SS UA Blood Negative Normal Negativemg /dL FT UA Auto SS UA Clarity Clear (08/27/23 8:49 AM) Normal Clear [facility] UA Auto SS UA Leuk Est Negative Normal NegativeLe u/uL [facility] UA Auto SS UA Nitrite Negative Normal Negativemg /dL FT UA Auto SS UA pH 6.0 *NA* (08/27/23 8:49 AM) Invalid Interpretation Code 5.0 - 9.0 [facility] UA Auto SS UA Protein Negative Normal Negativemg /dL [facility] UA Auto SS UA Spec Grav 1.014 *NA* (08/27/23 8:49 AM) Invalid Interpretation Code 1.005 - 1.030 [facility] UA Auto SS UA Urobilinogen Negative Normal Negativemg /dL [facility] UA Auto SS Urobilinogen (U) [Mass/Vol] Negative Normal Negativemg /dL [facility] UA Auto SS URINALYSISOrdered By: Rodrigue ferrara on 08-27-2023 UA Spec Desc Catheter (08/27/23 8:49 AM) Normal [facility] UA Auto SS Work Phone: eGFRon 08-27-2023 eGFR 52 mL/min/1.73 m2 Low >=59 [facility] Comment on above: Order Comment: Order added by Discern Expert. Performed By: #### 2 805023, [id number], 0032586 ####[facility] [address] [place] [address] PT - Orderson 08-26-2023 PT - Orders [id number]#[id number] Normal [facility] Alanine aminotransferase [En zymatic activity/volume] in Serum or PlasmaOrdered By: Senthil Torres on 08-22-2023 ALT [Catalytic activity/Vol] 8 U/L Normal 7-52 [facility] Comment on above: Performed By: #### C MP, CK, HS TROP, CBC #### [facility] [address] Albumin [Mass/volume] in Ser um or Plasma by Bromocresol green (BCG) dye binding methoOrdered By: Senthil Torres on 08-22-2023 Albumin BCG dye [Mass/Vol] 4.2 g/dL 3.5-5.7 [facility] Alkaline phosphatase [Enzyma tic activity/volume] in Serum or PlasmaOrdered By: Senthil Torres on 08-22-2023 ALP [Catalytic activity/Vol] 82 U/L Normal 34-104 [facility] Comment on above: Performed By: #### C MP, CK, HS TROP, CBC #### [address] Aspartate aminotransferase [ Enzymatic activity/volume] in Serum or PlasmaOrdered By: Senthil Torres on 08-22-2023 AST [Catalytic activity/Vol] 19 U/L Normal 13-39 [facility] Comment on above: Performed By: #### C MP, CK, HS TROP, CBC #### [address] Automated basophil %Ordered By: Senthil Torres on 08-22-2023 Basophils/100 WBC (Bld) 0.7 % Normal . [facility] Comment on above: Performed By: #### C MP, CK, HS TROP, CBC #### [address] Automated basophil countOrde red By: Senthil Torres on 08-22-2023 Basophils (Bld) [#/Vol] 0.1 10*3/uL Normal 0.0-0.2 [facility] Comment on above: Result Comment: PERF ORMED BY: [place] [address] PATHOLOGIST SURFACE GRINDER CORIE SILVA M.D. Performed By: #### C MP, CK, HS TROP, CBC #### [address] Automated blood monocyte cou ntOrdered By: Senthil Torres on 08-22-2023 Monocytes (Bld) [#/Vol] 0.6 10*3/uL Normal 0.0-0.8 [facility] Comment on above: Performed By: #### C MP, CK, HS TROP, CBC #### [address] Automated eosinophil %Ordere d By: Senthil Torres on 08-22-2023 Eosinophils/100 WBC (Bld) 2.9 % Normal . [facility] Comment on above: Performed By: #### C MP, CK, HS TROP, CBC #### [address] Automated eosinophil countOr dered By: Senthil Torres on 08-22-2023 Eosinophils (Bld) [#/Vol] 0.2 10*3/uL Normal 0.0-0.45 [facility] Comment on above: Performed By: #### C MP, CK, HS TROP, CBC #### [facility] [address] Automated erythrocytes count in urine sediment (number/area)Ordered By: PROVIDER TEMP on 08-22-2023 RBC Auto (Urine sed) [#/Area] 1-2 [HPF] 0-4 [facility] Automated leukocytes count i n urine sediment (number/area)Ordered By: PROVIDER TEMP on 08-22-2023 WBC Auto (Urine sed) [#/Area] 20-49 [HPF] 0-4 [facility] Automated monocyte %Ordered By: Senthil Torres on 08-22-2023 Monocytes/100 WBC (Bld) 8.2 % Normal . [facility] Comment on above: Performed By: #### C MP, CK, HS TROP, CBC #### [address] Automated neutrophil %Ordere d By: Senthil Torres on 08-22-2023 Neutrophils/100 WBC (Bld) 66.3 % Normal . [facility] Comment on above: Performed By: #### C MP, CK, HS TROP, CBC #### [address] Automated urine color determ inationOrdered By: PROVIDER TEMP on 08-22-2023 Color (U) Yellow Normal Yellow [facility] Comment on above: Order Comment: Name Collection Type:: Clean-Voided Midstream Performed By: #### C MP, CK, HS TROP, CBC #### [facility] [address] [place] [address] Bilirubin Test strip Ql (U)O rdered By: PROVIDER TEMP on 08-22-2023 Bilirubin Ql (U) Negative Negative [facility] Bilirubin.total [Mass/volume ] in Serum or PlasmaOrdered By: Senthil Torres on 08-22-2023 Bilirubin [Mass/Vol] 0.8 mg/dL Normal 0.3-1.0 [facility] Comment on above: Performed By: #### C MP, CK, HS TROP, CBC #### [address] head/brain wo conon 08-21 CT head/brain wo con [facility] [address] [place] [address] [place] [address] CT Scan Report Signed Patient: Maegan Dye MR#: [id number] : 1950 Acct:[id number] Age/Sex: 73 / F ADM Date: 08/22/23 Loc: ER Room: Type: [facility] ER Attending Dr: Copies to: Senthil Torres [...] Timo Tatum M.D.08/22/2023 1:57 PM Dictation Location: [place] [address] Transcribed By: [facility] 08/22/23 1357 Dictated By: Timo Tatum DO 08/22/23 1352 Signed By: 08/22/23 1357 Normal [facility] Calcium [Mass/volume] in Ser um or PlasmaOrdered By: Senthil Torres on 08-22-2023 Calcium [Mass/Vol] 9.3 mg/dL Normal 8.6-10.3 [facility] Comment on above: Performed By: #### C MP, CK, HS TROP, CBC #### [address] Carbon dioxide, total [Moles /volume] in Serum or PlasmaOrdered By: Senthil Torres on 08-22-2023 CO2 [Moles/Vol] 31.0 mmol/L Normal 21.0-31.0 [facility] Comment on above: Performed By: #### C MP, CK, HS TROP, CBC #### [address] Chloride [Moles/volume] in S clarisa or PlasmaOrdered By: Senthil Torres on 08-22-2023 Chloride [Moles/Vol] 102 mmol/L Normal 98-107 [facility] Comment on above: Performed By: #### C MP, CK, HS TROP, CBC #### [address] Complete Blood Count Auto Di ffon 08-22-2023 Mean Corpuscular HGB Conc 33.0 g/dL Normal 32.0-35.0 [facility] Comment on above: Performed By: #### C MP, CK, HS TROP, CBC #### [address] Monocytes/100 WBC (Bld) 16.36 % Normal 0.00-20.00 [facility] Comment on above: Performed By: #### C MP, CK, HS TROP, CBC #### [address] NRBC% 0.1 /100{WBC} Normal 0-0.5 [facility] Comment on above: Performed By: #### C MP, CK, HS TROP, CBC #### [address] Comprehensive Metabolic Pane isauro 08-22-2023 Albumin [Mass/Vol] 4.2 g/dL Normal 3.5-5.7 [facility] Comment on above: Performed By: #### C MP, CK, HS TROP, CBC #### [address] Creatinine Clr Calc Pharmacy 33.43 Normal [facility] Comment on above: Result Comment: PERF ORMED BY: [place] [address] PATHOLOGIST SURFACE GRINDER CORIE SILVA M.D. Performed By: #### C MP, CK, HS TROP, CBC #### [place] [address] [place] GFR/1.73 sq M.predicted MDRD (S/P/Bld) [Vol rate/Area] 49.679 mL/min/{1.73_m2} Normal [facility] Comment on above: Performed By: #### C MP, CK, HS TROP, CBC #### [address] Creatine kinase [Enzymatic a ctivity/volume] in Serum or PlasmaOrdered By: Senthil Torres on 08-22-2023 CK [Catalytic activity/Vol] 117 U/L Normal 30-223 [facility] Comment on above: Performed By: #### C MP, CK, HS TROP, CBC #### [address] Creatinine [Mass/volume] in Serum or PlasmaOrdered By: Senthil Torres on 08-22-2023 Creatinine [Mass/Vol] 1.15 mg/dL Normal 0.60-1.[address] [facility] Comment on above: Performed By: #### C MP, CK, HS TROP, CBC #### [place] [address] [place] Dipstick and Microscopicon 0 08-22-2023 Appearance (U) Cloudy Critically abnormal Clear [facility] Comment on above: Order Comment: Name Collection Type:: Clean-Voided Midstream Performed By: #### C MP, CK, HS TROP, CBC #### [address] Bacteria,Urine None Seen Normal None Seen [facility] Comment on above: Order Comment: Name Collection Type:: Clean-Voided Midstream Performed By: #### C MP, CK, HS TROP, CBC #### [address] Bilirubin,Urine Negative Normal Negative [facility] Comment on above: Order Comment: Name Collection Type:: Clean-Voided Midstream Performed By: #### C MP, CK, HS TROP, CBC #### [address] Glucose Ql (U) Normal Normal Normal [facility] Comment on above: Order Comment: Name Collection Type:: Clean-Voided Midstream Performed By: #### C MP, CK, HS TROP, CBC #### [place] [address] [place] Hyaline Casts,Urine 0-8 Normal 0-8 [facility] Comment on above: Order Comment: Name Collection Type:: Clean-Voided Midstream Performed By: #### C MP, CK, HS TROP, CBC #### [address] Ketones Ql (U) Negative Normal Negative [facility] Comment on above: Order Comment: Name Collection Type:: Clean-Voided Midstream Performed By: #### C MP, CK, HS TROP, CBC #### [address] Leukocyte esterase Test strip Ql (U) 4+ High Negative [facility] Comment on above: Order Comment: Name Collection Type:: Clean-Voided Midstream Performed By: #### C MP, CK, HS TROP, CBC #### [place] [address] [place] Nitrite,Urine Negative Normal Negative [facility] Comment on above: Order Comment: Name Collection Type:: Clean-Voided Midstream Performed By: #### C MP, CK, HS TROP, CBC #### [address] Occult Blood,Urine Negative Normal Negative [facility] Comment on above: Order Comment: Name Collection Type:: Clean-Voided Midstream Result Comment: PERF ORMED BY: [place] [address] PATHOLOGIST SURFACE GRINDER CORIE SILVA M.D. Performed By: #### C MP, CK, HS TROP, CBC #### [address] Protein,Urine Negative Normal Negative [facility] Comment on above: Order Comment: Name Collection Type:: Clean-Voided Midstream Performed By: #### C MP, CK, HS TROP, CBC #### [address] RBC,Urine 1-2 Normal 0-4 [facility] Comment on above: Order Comment: Name Collection Type:: Clean-Voided Midstream Performed By: #### C MP, CK, HS TROP, CBC #### [address] Specificy [place],Urine 1.013 Normal 1.001-1.03 0 [facility] Comment on above: Order Comment: Name Collection Type:: Clean-Voided Midstream Performed By: #### C MP, CK, HS TROP, CBC #### [address] Squamous Epithelial Cell,Urine 10-19 High 0-2 [facility] Comment on above: Order Comment: Name Collection Type:: Clean-Voided Midstream Performed By: #### C MP, CK, HS TROP, CBC #### [address] Urobilinogen,Urine Normal Normal Normal [facility] Comment on above: Order Comment: Name Collection Type:: Clean-Voided Midstream Performed By: #### C MP, CK, HS TROP, CBC #### [place] [address] [place] WBC,Urine 20-49 High 0-4 [facility] Comment on above: Order Comment: Name Collection Type:: Clean-Voided Midstream Performed By: #### C MP, CK, HS TROP, CBC #### [address] Yeast,Urine 3+ Critically abnormal None Seen [facility] Comment on above: Order Comment: Name Collection Type:: Clean-Voided Midstream Result Comment: PERF ORMED BY: [place] [address] PATHOLOGIST SURFACE GRINDER CORIE SILVA M.D. Performed By: #### C MP, CK, HS TROP, CBC #### [facility] [address] [place] [address] ECG 12 lead ECGon 08-22-2023 ECG 12 lead ECG [facility] Main [place] [address] [place] [address] Electrocardiograph Report Signed Patient: Maegan Dye MR#: [id number] : 1950 Acct:[id number] Age/Sex: 73 / F ADM Date: 08/22/23 Loc: ER Room: Type: [facility] ER Attending Dr: Ordering Provider: Senthil Torres [...] Chandan Kruger MD 08/22/23 1500 Normal [facility] Erythrocyte distribution wid th [Ratio] by Automated countOrdered By: Senthil Torres on 08-22-2023 Erythrocyte distribution width (RBC) [Ratio] 13.0 % Normal 11.9-15.3 [facility] Comment on above: Performed By: #### C MP, CK, HS TROP, CBC #### [facility] [address] [place] [address] Erythrocytes [#/volume] in B lood by Automated countOrdered By: Senthil Torres on 08-22-2023 RBC (Bld) [#/Vol] 4.41 10*6/uL Normal 3.60-5.00 [facility] Comment on above: Performed By: #### C MP, CK, HS TROP, CBC #### [facility] [address] Glucose [Mass/volume] in Ser um or PlasmaOrdered By: Senthil Torres on 08-22-2023 Glucose [Mass/Vol] 104 mg/dL High 70-100 [facility] Comment on above: ADA recommended refe rence rangeRandom Glucose Reference Range is dependent on time and content of last meal. Glucose of more than 200 mg/dL in a nonstressed, ambulatory subject supports the diagnosis of Diabetes Mellitus. Result Comment: [place] om Glucose Reference Range is dependent on time and content of last meal. Glucose of more than 200 mg/dL in a nonstressed, ambulatory subject supports the diagnosis of Diabetes Mellitus. ADA recommended reference range Performed By: #### C MP, CK, HS TROP, CBC #### [facility] [address] Hematocrit [Volume Fraction] of Blood by Automated countOrdered By: Senthil Torres on 08-22-2023 Hematocrit (Bld) [Volume fraction] 38.5 % Normal 34.0-46.4 [facility] Comment on above: Performed By: #### C MP, CK, HS TROP, CBC #### [facility] [address] Hemoglobin [Mass/volume] in BloodOrdered By: Senthil Torres on 08-22-2023 Hemoglobin (Bld) [Mass/Vol] 12.7 g/dL Normal 11.8-15.4 [facility] Comment on above: Performed By: #### C MP, CK, HS TROP, CBC #### [address] Ketones Auto test strip (U) [Mass/Vol]Ordered By: AUGUSTIN TEM on 08-22-2023 Ketones (U) [Mass/Vol] Negative Negative [facility] - UrinalysisOrder ed By: PROVIDER TEMP on 08-22-2023 Hyaline casts LM Ql (Urine sed) 0-8 [LPF] 0-8 [facility] Leukocytes [#/volume] correc kenyatta for nucleated erythrocytes in Blood by Automated counOrdered By: Senthil Torres on 08-22-2023 WBC corrected for nucl RBC Auto (Bld) [#/Vol] 6.8 10*3/uL 3.8-11.6 [facility] Leukocytes [#/volume] in Blo od by Automated countOrdered By: Senthil Torres on 08-22-2023 WBC (Bld) [#/Vol] 6.8 10*3/uL Normal 3.8-11.6 [facility] Comment on above: Performed By: #### C MP, CK, HS TROP, CBC #### [facility] [address] [place] [address] [place] Lymphocytes [#/volume] in Bl ood by Automated countOrdered By: Senthil Torres on 08-22-2023 Lymphocytes (Bld) [#/Vol] 1.5 10*3/uL Normal 1.00-4.8 [facility] Comment on above: Performed By: #### C MP, CK, HS TROP, CBC #### [facility] [address] [place] [address] [place] Lymphocytes/100 leukocytes i n Blood by Automated countOrdered By: Senthil Torres on 08-22-2023 Lymphocytes/100 WBC (Bld) 21.9 % Normal . [facility] Comment on above: Performed By: #### C MP, CK, HS TROP, CBC #### [facility] [address] [place] [address] [place] MCH [Entitic mass] by Automa kenyatta countOrdered By: Senthil Torres on 08-22-2023 MCH (RBC) [Entitic mass] 28.8 pg Normal 24.7-34.3 [facility] Comment on above: Performed By: #### C MP, CK, HS TROP, CBC #### [facility] [address] [place] [address] [place] MCHC Auto (RBC) [Mass/Vol]Or dered By: Senthil Torres on 08-22-2023 MCHC (RBC) [Mass/Vol] 33.0 g/dL 32.0-35.[address] [facility] MCV [Entitic volume] by Auto mated countOrdered By: Senthil Torres on 08-22-2023 MCV (RBC) [Entitic vol] 87.2 fL Normal 80-100 [facility] Comment on above: Performed By: #### C MP, CK, HS TROP, CBC #### [facility] [address] Monocyte distribution width [Entitic volume] in Blood by AutomatedOrdered By: Senthil Torres on 08-22-2023 Monocyte distribution width Auto (Bld) [Entitic vol] 16.36 % 0.00-20.00 [facility] Neutrophils [#/volume] in Bl ood by Automated countOrdered By: Senthil Torres on 08-22-2023 Neutrophils (Bld) [#/Vol] 4.5 10*3/uL Normal 1.8-7.7 [facility] Comment on above: Performed By: #### C MP, CK, HS TROP, CBC #### [facility] [address] [place] [address] Nitrite Test strip Ql (U)Ord ered By: AUGUSTIN LEI on 08-22-2023 Nitrite Ql (U) Negative Negative [facility] No Panel InformationOrdered By: Senthil Torres on 08-22-2023 Estimated GFR (CKD-EPI) 49.679 mL/Min [facility] Creatinine Clearance (Chem 33.43 [facility] Nucleated erythrocytes [Pres ence] in Blood by Automated countOrdered By: Senthil Torres on 08-22-2023 Nucleated RBC Auto Ql (Bld) 0.1 /100{WBC} 0-0.5 [facility] Platelet mean volume [Entiti c volume] in Blood by Automated countOrdered By: Senthil Torres on 08-22-2023 Platelet mean volume (Bld) [Entitic vol] 7.5 fL Normal 6.3-10.7 [facility] Comment on above: Performed By: #### C MP, CK, HS TROP, CBC #### [address] Platelets [#/volume] in Bloo d by Automated countOrdered By: Senthil Torres on 08-22-2023 Platelets (Bld) [#/Vol] 212 10*3/uL Normal 150-450 [facility] Comment on above: Performed By: #### C MP, CK, HS TROP, CBC #### [address] Potassium [Moles/volume] in Serum or PlasmaOrdered By: Senthil Torres on 08-22-2023 Potassium [Moles/Vol] 3.3 mmol/L Low 3.5-5.[address] [facility] Comment on above: Performed By: #### C MP, CK, HS TROP, CBC #### [address] Protein Auto test strip (U) [Mass/Vol]Ordered By: PROVIDER TEMP on 08-22-2023 Protein (U) [Mass/Vol] Negative Negative [facility] Protein [Mass/volume] in Ser um or PlasmaOrdered By: Senthil Torres on 08-22-2023 Protein [Mass/Vol] 6.6 g/dL Normal 6.4-8.9 [facility] Comment on above: Performed By: #### C MP, CK, HS TROP, CBC #### [address] Serum globulin measurement b y calculation (mass/volume)Ordered By: Senthil Torres on 08-22-2023 Globulin (S) [Mass/Vol] 2.4 g/dL [facility] Comment on above: Performed By: #### C MP, CK, HS TROP, CBC #### [address] Serum or plasma albumin/glob ulin mass ratioOrdered By: Senthil Torres on 08-22-2023 Albumin/Globulin [Mass ratio] 1.8 {ratio} [facility] Comment on above: Performed By: #### C MP, CK, HS TROP, CBC #### [address] Serum or plasma anion gap de terminationOrdered By: Senthil Torres on 08-22-2023 Anion gap [Moles/Vol] 9.3 mmol/L Normal 6.0-15.[address] [facility] Comment on above: Performed By: #### C MP, CK, HS TROP, CBC #### [address] Sodium [Moles/volume] in Ser um or PlasmaOrdered By: Senthil Torres on 08-22-2023 Sodium [Moles/Vol] 139 mmol/L Normal 136-145 [facility] Comment on above: Performed By: #### C MP, CK, HS TROP, CBC #### [address] Specific gravity Auto test s trip (U) [Rel density]Ordered By: PROVIDER TEMP on 08-22-2023 Specific gravity (U) [Rel density] 1.013 1.001-1.03 0 [facility] Spermatozoa detection in uri ne sediment by light microscopyOrdered By: PROVIDER TEMP on 08-22-2023 Spermatozoa LM Ql (Urine sed) N/A [facility] Squamous epithelial cells de tection in urine sediment by light microscopyOrdered By: PROVIDER TEMP on 08-22-2023 Epithelial cells.squamous LM Ql (Urine sed) 10-19 [HPF] 0-2 [facility] Troponin I High Sensitivityo n 08-22-2023 Troponin I High Sensitivity 3.4 pg/mL Normal 0.0-15.0 [facility] Comment on above: Result Comment: PERF ORMED BY: [place] [address] PATHOLOGIST SURFACE GRINDER CORIE SILVA M.D. Performed By: #### C MP, CK, HS TROP, CBC #### [address] Troponin I.cardiac [Mass/vol ume] in Serum or Plasma by Detection limit <= 0.01 ng/Ordered By: Senthil Torres on 08-22-2023 Troponin I.cardiac DL <= 0.01 ng/mL [Mass/Vol] 3.4 pg/mL 0.0-15.0 [facility] Urea nitrogen [Mass/volume] in Serum or PlasmaOrdered By: Senthil Torres on 08-22-2023 Urea nitrogen [Mass/Vol] 10 mg/dL Normal 7-25 [facility] Comment on above: Performed By: #### C MP, CK, HS TROP, CBC #### [facility] [address] [place] [address] Urine Cultureon 08-22-2023 Bacteria identified Cx Nom (U) ORGANISM: Staphylococcus epidermidis (O:STAEPI) Crane Count >100,000 Aerobic REINALDO Charge (PCMIC38) SUSCEPTIBILITY [...] RESISTANT TO ALL B-LACTAM DRUGS. PERFORMED BY: [place] [address] PATHOLOGIST SURFACE GRINDER CORIE SILVA M.D. Normal [facility] Comment on above: Performed By: #### C MP, CK, HS TROP, CBC #### [facility] [address] [place] [address] Urine bacteria detection by automated methodOrdered By: PROVIDER TEMP on 08-22-2023 Bacteria Auto Ql (U) None seen None Seen [facility] Urine clarity by refractomet ry automatedOrdered By: PROVIDER TEMP on 08-22-2023 Clarity Refractometry automated (U) Cloudy Clear [facility] Urine culture routineOrdered By: PROVIDER TEMP on 08-22-2023 Bacteria identified Cx Nom (U) Staphylococcus epidermidis [facility] Urine glucose measurement by automated test strip (mass/volume)Ordered By: PROVIDER TEMP on 08-22-2023 Glucose Auto test strip (U) [Mass/Vol] Normal mg/dL Normal [facility] Urine hemoglobin detection b y automated test stripOrdered By: PROVIDER TEMP on 08-22-2023 Hemoglobin Auto test strip Ql (U) Negative Negative [facility] Urine leukocyte esterase det ection by automated test stripOrdered By: PROVIDER TEMP on 08-22-2023 Leukocyte esterase Auto test strip Ql (U) 4+ Negative [facility] Urine pH measurement by auto mated test stripOrdered By: PROVIDER TEMP on 08-22-2023 pH (U) 6.5 [pH] Normal 5.0-9.0 [facility] Comment on above: Order Comment: Name Collection Type:: Clean-Voided Midstream Performed By: #### C MP, CK, HS TROP, CBC #### [facility] [address] [place] [address] Urobilinogen Auto test strip (U) [Mass/Vol]Ordered By: PROVIDER TEMP on 08-22-2023 Urobilinogen (U) [Mass/Vol] Normal mg/dL Normal [facility] Yeast detection in urine sed iment by light microscopyOrdered By: PROVIDER TEMP on 08-22-2023 Yeast LM Ql (Urine sed) 3+ [HPF] None Seen [facility] Consent for Treatmenton 07-25 Consent for Treatment [id number] Normal [facility] ED Clinical Summaryon 2023 ED Clinical Summary Normal Kait mccray [facility] ED Patient Education Noteon 08-21-2023 ED Patient Education Note Normal [facility] ED Patient Summaryon 024 ED Patient Summary Normal [facility] CBC w/ Auto Diffon 4 Basophils/100 WBC (Bld) 1.1 % Normal 0.0-2.0 [facility] Comment on above: Performed By: #### 7 [id number], 0399879, 254372701, 6339398, 8408572, 47796223 ####[address] [address] Basophils/Leukocytes Auto (Bld) [Pure # fraction] 0.1 E9/L Normal 0.0-0.2 [facility] Comment on above: Performed By: #### 7 47358043, 2821659, 696518126, 3052741, 4614353, 93200185 ####[address] [address] Eosinophils (Bld) [#/Vol] 0.3 E9/L Normal 0.0-0.5 [facility] Comment on above: Performed By: #### 7 66425147, 3969914, 553135124, 3516798, 6071869, 71839268 ####[address] [address] Eosinophils/100 WBC (Bld) 4.9 % Normal 0.0-8.0 [facility] Comment on above: Performed By: #### 7 29431233, 6908682, 644892639, 5898423, 2251114, 68521857 ####[address] [address] Erythrocyte distribution width (RBC) [Ratio] 13.0 % Normal 10.9-14.2 [facility] Comment on above: Performed By: #### 7 70660800, 0747238, 847551501, 8759528, 7067938, 56426941 ####[address] [place] [address] Hematocrit (Bld) [Volume fraction] 41.4 % Normal 34.0-46.0 [facility] Comment on above: Performed By: #### 7 82454368, 2929297, 286301029, 6470997, 7906425, 92929436 ####[address] [place] [address] Hemoglobin (Bld) [Mass/Vol] 13.0 g/dL Normal 12.0-16.0 [facility] Comment on above: Performed By: #### 7 54979158, 2196782, 091508937, 8568187, 8012177, 10366550 ####[address] [address] Lymphocytes (Bld) [#/Vol] 1.6 E9/L Normal 1.0-4.0 [facility] Comment on above: Performed By: #### 7 89444241, 6215397, 511523191, 4021688, 2916813, 23069914 ####[address] [address] Lymphocytes/100 WBC (Bld) 28.3 % Normal 14.0-50.0 [facility] Comment on above: Performed By: #### 7 49361836, 0199921, 411869905, 2131923, 9348301, 11935912 ####[address] [address] MCH (RBC) [Entitic mass] 28.2 pg Normal 27.0-34.0 [facility] Comment on above: Performed By: #### 7 68592161, 0888532, 145592910, 7556995, 8009529, 21338870 ####[address] [address] MCHC (RBC) [Mass/Vol] 31.4 g/dL Normal 31.4-36.0 [facility] Comment on above: Performed By: #### 7 57272669, 4903198, 922613672, 9709527, 2496679, 04429337 ####[address] [address] MCV (RBC) [Entitic vol] 89.7 fL Normal 80.0-100.0 [facility] Comment on above: Performed By: #### 7 05937548, 4928579, 660852952, 9701521, 6314432, 15048387 ####[address] [place] [address] Monocytes (Bld) [#/Vol] 0.3 E9/L Normal 0.2-1.0 [facility] Comment on above: Performed By: #### 7 00367397, 1876123, 120119269, 0286023, 8225288, 25352066 ####[address] [address] Neutrophils (Bld) [#/Vol] 3.3 E9/L Normal 2.0-7.5 [facility] Comment on above: Performed By: #### 7 92302086, 6188804, 195082423, 9535173, 8711905, 80437385 ####[address] [address] Neutrophils/100 WBC (Bld) 60.2 % Normal 36.0-75.0 [facility] Comment on above: Performed By: #### 7 32648046, 5081585, 025363941, 7806063, 9243240, 29980392 ####[address] [address] Platelet 162.0 E9/L Normal 150.0-500. 0 [facility] Comment on above: Performed By: #### 7 09043986, 9638264, 737544768, 3460476, 6338722, 70866909 ####[address] [place] [address] Platelet mean volume (Bld) [Entitic vol] 8.5 fL Normal 6.4-10.8 [facility] Comment on above: Performed By: #### 7 30884211, 8346021, 266998404, 2174412, 3920813, 13209762 ####[address] [address] RBC (Bld) [#/Vol] 4.6 E12/L Normal 4.3-5.9 [facility] Comment on above: Performed By: #### 7 59006110, 2883441, 829064301, 3896561, 4264572, 36575618 ####[facility] [address] [place] [address] WBC corrected for nucl RBC Auto (Bld) [#/Vol] 5.5 E9/L Normal 4.0-11.0 [facility] Comment on above: Performed By: #### 7 53413539, 8877674, 440619674, 7620256, 9006707, 44897042 ####[address] [place] [address] CMPon 08-20-2023 Albumin [Mass/Vol] 4.0 g/dL Normal 3.3-5.0 [facility] Comment on above: Performed By: #### 7 02041227, 1765468, 108282346, 6151927, 6600565, 45985070 ####[address] [address] Albumin/Globulin (S) [Mass conc ratio] 1.8 Normal 1.1-2.2 [facility] Comment on above: Performed By: #### 7 42194839, 6406093, 417024165, 1561132, 2978252, 01630568 ####[address] [place] [address] ALP [Catalytic activity/Vol] 84 Int._Unit/L Normal 21-98 [facility] Comment on above: Performed By: #### 7 51370743, 6828713, 235190975, 0863411, 3075936, 66949256 ####[address] [place] [address] ALT No additional P-5'-P [Catalytic activity/Vol] 8 Int._Unit/L Normal 6-46 [facility] Comment on above: Performed By: #### 7 62328875, 3413306, 537108904, 0196333, 1354241, 42848627 ####[facility] [address] [place] [address] Anion gap [Moles/Vol] 9 mmol/L Normal 6-16 [facility] Comment on above: Performed By: #### 7 30895055, 6123461, 204861524, 4334176, 1430314, 78974054 ####[facility] [address] [place] [address] AST [Catalytic activity/Vol] 16 Int._Unit/L Normal 5-43 [facility] Comment on above: Performed By: #### 7 14246001, 5096825, 779193307, 9443723, 3353998, 20852620 ####[facility] [address] [place] [address] Bilirubin [Mass/Vol] 0.5 mg/dL Normal 0.0-1.1 [facility] Comment on above: Performed By: #### 7 93883580, 4228857, 132983928, 2749185, 0582410, 73488694 ####[facility] [address] [place] [address] Calcium [Mass/Vol] 9.2 mg/dL Normal 8.9-11.1 [facility] Comment on above: Performed By: #### 7 70704478, 2777946, 627255368, 3904021, 0732970, 28723909 ####[facility] [address] [place] [address] Chloride [Moles/Vol] 105 mmol/L Normal 101-111 [facility] Comment on above: Performed By: #### 7 24218218, 0908854, 907667195, 1465545, 6575589, 24067685 ####[facility] [address] [place] [address] CO2 [Moles/Vol] 30 mmol/L Normal 21-31 [facility] Comment on above: Performed By: #### 7 36429011, 7917237, 962940676, 1794072, 0019655, 83686925 ####[facility] [address] [place] [address] Creatinine [Mass/Vol] 1.2 mg/dL Normal 0.5-1.3 [facility] Comment on above: Performed By: #### 7 46466937, 1615158, 366857282, 2898117, 4601087, 99901401 ####[facility] [address] [place] [address] Globulin (S) [Mass/Vol] 2.2 g/dL Normal 1.4-4.0 [facility] Comment on above: Performed By: #### 7 57614430, 4988117, 759544234, 0216704, 1673130, 34953074 ####[address] [place] [address] Glucose [Mass/Vol] 108 mg/dL Normal 55-199 [facility] Comment on above: Performed By: #### 7 70301359, 9129391, 706465310, 6715494, 7243668, 75780362 ####[address] [place] [address] Potassium [Moles/Vol] 3.7 mmol/L Normal 3.5-5.3 [facility] Comment on above: Performed By: #### 7 45258286, 9232443, 014751680, 7065179, 3831079, 36573368 ####[facility] [address] [place] [address] Protein [Mass/Vol] 6.2 g/dL Normal 6.0-7.8 [facility] Comment on above: Performed By: #### 7 17372661, 7514302, 001452646, 5348858, 9582665, 65871786 ####[address] [place] [address] Sodium [Moles/Vol] 140 mmol/L Normal 135-145 [facility] Comment on above: Performed By: #### 7 04787120, 2868233, 924360224, 2744819, 6816090, 32120751 ####[facility] [address] [place] [address] Urea nitrogen [Mass/Vol] 10 mg/dL Normal 5-21 [facility] Comment on above: Performed By: #### 7 16796776, 8608730, 675894480, 9679679, 0432117, 06487500 ####[facility] [address] [place] [address] Urea nitrogen/Creatinine [Mass ratio] 8 No Units Low 10-20 [facility] Comment on above: Performed By: #### 7 48310944, 7930011, 351574466, 3952974, 4885212, 89231837 ####[facility] [address] [place] [address] DldL6tsd 08-20-2023 HbA1c (Bld) [Mass fraction] 5.5 % Normal <=5.9 [facility] Comment on above: Performed By: #### 7 92344471, 6220599, 442315643, 5935242, 8835104, 41855029 ####[facility] [address] [place] [address] Vit B12on 08-20-2023 Cobalamin (Vitamin B12) [Mass/Vol] 354 pg/mL Normal 50-1500 [facility] Comment on above: Performed By: #### 7 39299220, 7032140, 809714118, 5344545, 8727614, 77691653 ####[facility] [address] [place] [address] Vitamin D 25 Hydroxyon 08-19 25-hydroxyvitamin D3 [Mass/Vol] 39.9 ng/mL Normal 30.0-100.0 [facility] Comment on above: Performed By: #### 7 84609213, 3212322, 960510382, 0172178, 9215122, 47562660 ####[facility] [address] [facility] [place] [address] eGFRon 08-20-2023 eGFR 47 mL/min/1.73 m2 Low >=59 [facility] Comment on above: Order Comment: Order added by Discern Expert. Performed By: #### 7 36939250, 4252951, 074792322, 8599047, 0727635, 98770470 ####[facility] [address] [place] [address] Physician Orderon 08-18-2023 Physician Order [id number] Normal [facility] .UA With Cult Reflexon 08-13 Bilirubin Ql (U) Negative Normal Negative [facility] Comment on above: Performed By: #### 1 [id number] ####[address] [address] Clarity (U) CLEAR Normal Clear [facility] [facility] Comment on above: Performed By: #### 1 [id number] ####[address] [address] Color (U) STRAW Invalid Interpretation Code [facility] Comment on above: Performed By: #### 1 [id number] ####[address] [place] [address] Glucose Test strip (U) [Mass/Vol] Negative Normal Negative [facility] Comment on above: Performed By: #### 1 [id number] ####[facility] [address] [place] [address] Hemoglobin Ql (U) Negative Normal Negative [facility] Comment on above: Performed By: #### 1 [id number] ####[address] [place] [address] Ketones (U) [Mass/Vol] Negative Normal Negative [facility] Comment on above: Performed By: #### 1 [id number] ####[address] [place] [address] Nitrite Ql (U) Negative Normal Negative [facility] Comment on above: Performed By: #### 1 [id number] ####[facility] [address] [place] [address] pH (U) 8.0 [pH] Invalid Interpretation Code 5.0-9.0 [facility] Comment on above: Performed By: #### 1 [id number] ####[facility] [address] [place] [address] Protein (U) [Mass/Vol] Negative Normal Negative [facility] Comment on above: Performed By: #### 1 [id number] ####[address] [address] Specific gravity (U) [Rel density] 1.025 Invalid Interpretation Code 1.005-1.03 0 [facility] Comment on above: Performed By: #### 1 [id number] ####[address] [address] Type of Urine collection method Mcdonough Normal [facility] Comment on above: Performed By: #### 1 [id number] ####[address] [address] Urobilinogen Qn (U) 0.2 {Rolan'U}/dL Normal 0.0-1.0 [facility] Comment on above: Performed By: #### 1 6596942 ####[address] [address] WBC Auto Ql (U) Negative Normal Negative [facility] Comment on above: Performed By: #### 1 4602773 ####[address] [address] Epithelial cells.squamous LM.HPF (Urine sed) [#/Area] 0-2 Normal 0-2 [facility] Comment on above: Performed By: #### 1 7933869 ####[address] [address] Wickes.plasma/Wickes .RBC (Bld) [Mass ratio] 0-3 Normal 0-3 [facility] Comment on above: Performed By: #### 1 [id number] ####[facility] [address] [address] WBC LM.HPF (Urine sed) [#/Area] 0-5 Normal 0-5 [facility] Comment on above: Performed By: #### 1 7651160 ####[facility] [address] [place] [address] BMPon 08-14-2023 Anion gap [Moles/Vol] 9 mmol/L Normal 6-16 [facility] Comment on above: Performed By: #### 2 842175, 24935177, 3517795, 5123926 ####[facility] [address] [place] [address] Calcium [Mass/Vol] 9.2 mg/dL Normal 8.9-11.1 [facility] Comment on above: Performed By: #### 2 594336, 37641974, 9550541, 8693915 ####[facility] [address] [place] [address] Chloride [Moles/Vol] 102 mmol/L Normal 101-[address] [facility] Comment on above: Performed By: #### 2 416486, 01857676, 9738470, 3308424 ####[facility] [address] [place] [address] CO2 [Moles/Vol] 33 mmol/L High 21-31 [facility] Comment on above: Performed By: #### 2 804740, 94069333, 2308729, 1649894 ####[facility] [address] [address] Creatinine [Mass/Vol] 1.0 mg/dL Normal 0.5-1.3 [facility] Comment on above: Performed By: #### 2 208425, 90064076, 6681417, 9319534 ####[facility] [address] [address] Glucose [Mass/Vol] 98 mg/dL Normal 55-199 [facility] Comment on above: Performed By: #### 2 947614, 19355576, 0447957, 3101512 ####[facility] [address] [place] [address] Potassium [Moles/Vol] 3.8 mmol/L Normal 3.5-5.3 [facility] Comment on above: Performed By: #### 2 580010, 28650375, 6116941, 2310439 ####[facility] [address] [place] [address] Sodium [Moles/Vol] 140 mmol/L Normal 135-145 [facility] Comment on above: Performed By: #### 2 377886, 50893537, 6769991, 7636769 ####[facility] [address] [place] [address] Urea nitrogen [Mass/Vol] 10 mg/dL Normal 5-21 [facility] Comment on above: Performed By: #### 2 173292, 71257723, 9650385, 2952776 ####[facility] [address] [place] [address] Urea nitrogen/Creatinine [Mass ratio] 10 No Units Normal 10-20 [facility] Comment on above: Performed By: #### 2 778836, 94558574, 8404384, 5139837 ####[facility] [address] [place] [address] C Urineon 08-14-2023 Bacteria identified Cx Nom (U) Normal [facility] Comment on above: Performed By: #### 2 500946, 37692053 ####[facility] [address] [place] [address] CBC w/ Auto Diffon 4 Basophils/100 WBC (Bld) 0.9 % Normal 0.0-2.0 [facility] Comment on above: Performed By: #### 2 747045, 28906533, 1907273, 1515967 ####[facility] [address] [place] [address] Basophils/Leukocytes Auto (Bld) [Pure # fraction] 0.0 E9/L Normal 0.0-0.2 [facility] Comment on above: Performed By: #### 2 279233, 58067882, 8722648, 4533546 ####[address] [address] Eosinophils (Bld) [#/Vol] 0.3 E9/L Normal 0.0-0.5 [facility] Comment on above: Performed By: #### 2 151859, 03885613, 5708346, 3875593 ####[address] [address] Eosinophils/100 WBC (Bld) 5.3 % Normal 0.0-8.0 [facility] Comment on above: Performed By: #### 2 666152, 29337660, 7133351, 3002245 ####[address] Erythrocyte distribution width (RBC) [Ratio] 12.8 % Normal 10.9-14.2 [facility] Comment on above: Performed By: #### 2 659668, 62171911, 0911853, 6024482 ####[address] [address] Hematocrit (Bld) [Volume fraction] 39.8 % Normal 34.0-46.0 [facility] Comment on above: Performed By: #### 2 944864, 84832519, 5089424, 3901165 ####[address] [address] Hemoglobin (Bld) [Mass/Vol] 13.0 g/dL Normal 12.0-16.0 [facility] Comment on above: Performed By: #### 2 663394, 81263305, 7677797, 5542851 ####[address] [address] Lymphocytes (Bld) [#/Vol] 1.1 E9/L Normal 1.0-4.0 [facility] Comment on above: Performed By: #### 2 762246, 54928473, 0576042, 8336661 ####[address] [address] Lymphocytes/100 WBC (Bld) 23.2 % Normal 14.0-50.0 [facility] Comment on above: Performed By: #### 2 684870, 71570943, 2567899, 0224819 ####[address] [address] MCH (RBC) [Entitic mass] 28.4 pg Normal 27.0-34.0 [facility] Comment on above: Performed By: #### 2 173946, 53618901, 5200491, 7813975 ####[address] [address] MCHC (RBC) [Mass/Vol] 32.6 g/dL Normal 31.4-36.0 [facility] Comment on above: Performed By: #### 2 069200, 76674719, 3825150, 6692391 ####[address] [address] MCV (RBC) [Entitic vol] 87.3 fL Normal 80.0-100.0 [facility] Comment on above: Performed By: #### 2 758866, 17398006, 0738893, 3596209 ####[address] [address] Monocytes (Bld) [#/Vol] 0.4 E9/L Normal 0.2-1.0 [facility] Comment on above: Performed By: #### 2 633216, 71380661, 0702140, 8947831 ####[address] [address] Neutrophils (Bld) [#/Vol] 3.0 E9/L Normal 2.0-7.5 [facility] Comment on above: Performed By: #### 2 327585, 44548432, 8428989, 5113752 ####[address] [address] Neutrophils/100 WBC (Bld) 63.1 % Normal 36.0-75.0 [facility] Comment on above: Performed By: #### 2 445309, 78131462, 3473874, 8731293 ####[address] [address] Platelet mean volume (Bld) [Entitic vol] 7.1 fL Normal 6.4-10.8 [facility] Comment on above: Performed By: #### 2 585308, 55255955, 6101154, 9782730 ####[address] [address] Platelets (Bld) [#/Vol] 208.0 E9/L Normal 150.0-500. 0 [facility] Comment on above: Performed By: #### 2 480981, 70715437, 6635003, 2791139 ####[address] [address] RBC (Bld) [#/Vol] 4.6 E12/L Normal 4.3-5.9 [facility] Comment on above: Performed By: #### 2 663623, 01000718, 1983442, 1551567 ####[address] [address] WBC corrected for nucl RBC Auto (Bld) [#/Vol] 4.8 E9/L Normal 4.0-11.0 [facility] Comment on above: Performed By: #### 2 259393, 19910428, 3201280, 3381597 ####[address] [address] CHEMISTRYOrdered By: SYSTEM SYSTEM on 08-14-2023 Albumin [...] for Treatmenton 07-25 Consent for Treatment [id number]#1.00TIFF Normal [facility] Discharge Instructionson Discharge Instructions [id number]#1.00TIFF Normal [facility] ED Clinical Summaryon 2023 ED Clinical Summary Normal [facility] ED Note-Physicianon 08-14-19 ED Note-Physician Normal [facility] Comment on above: Result Comment: Elec tronically Signed By: Johny Willson DO.br\Date and Time Signed: 08/14/23 11:20 EDT ED Patient Education Noteon 08-14-2023 ED Patient Education Note Normal [facility] ED Patient Summaryon 024 ED Patient Summary Normal [facility] HEMATOLOGYOrdered By: SYSTEM SYSTEM on 08-14-2023 [...] 08-14-2023 Albumin [Mass/Vol] 3.8 g/dL Normal 3.3-5.0 [facility] Comment on above: Performed By: #### 2 234851, 38390250, 2151396, 7837445 ####[facility] [address] [place] [address] Albumin/Globulin (S) [Mass conc ratio] 1.5 Normal 1.1-2.2 [facility] Comment on above: Performed By: #### 2 034348, 05282057, 5423713, 0666714 ####[facility] [address] [place] [address] ALP [Catalytic activity/Vol] 79 Int._Unit/L Normal 21-98 [facility] Comment on above: Performed By: #### 2 356430, 78485433, 0803045, 6902771 ####[facility] [address] [place] [address] ALT No additional P-5'-P [Catalytic activity/Vol] 10 Int._Unit/L Normal 6-46 [facility] Comment on above: Performed By: #### 2 205872, 03443296, 4392737, 3467278 ####[facility] [address] [place] [address] AST [Catalytic activity/Vol] 18 Int._Unit/L Normal 5-43 [facility] Comment on above: Performed By: #### 2 457393, 29778232, 0906912, 8849420 ####[facility] [address] [place] [address] Bilirubin [Mass/Vol] 0.5 mg/dL Normal 0.0-1.1 [facility] Comment on above: Performed By: #### 2 220059, 66956681, 5764091, 1924448 ####[facility] [address] [place] [address] Bilirubin.direct [Mass/Vol] 0.1 mg/dL Normal 0.0-0.4 [facility] Comment on above: Performed By: #### 2 243945, 97162473, 7333814, 8189129 ####[address] [address] Bilirubin.indirect [Mass or moles/Vol] 0.4 mg/dL Normal 0.1-0.9 [facility] Comment on above: Performed By: #### 2 481912, 63993477, 9126441, 6482503 ####[facility] [address] [place] [address] Globulin (S) [Mass/Vol] 2.6 g/dL Normal 1.4-4.0 [facility] Comment on above: Performed By: #### 2 706902, 50132961, 6023654, 9077059 ####[address] [address] Protein [Mass/Vol] 6.4 g/dL Normal 6.0-7.8 [facility] Comment on above: Performed By: #### 2 418373, 91435592, 9201039, 0643058 ####[facility] [address] [place] [address] UA with Cult Rflxon 08-14-19 24 UA Spec Desc CANCELLED Invalid Interpretation Code [facility] Comment on above: Result Comment: CANC ELLED Performed By: #### 4 [id number] ####[facility] [address] [address] Color (U) CANCELLED Invalid Interpretation Code >=0 [facility] Comment on above: Result Comment: Micr oscopic readings are only performed on those samples that meet specific criteria set forth by [facility]. Performed By: #### 4 [id number] ####[facility] [address] [place] [address] Ketones Ql (U) CANCELLED Invalid Interpretation Code [facility] Comment on above: Performed By: #### 4 [id number] ####[facility] [address] [place] [address] UA Blood CANCELLED Invalid Interpretation Code [facility] Comment on above: Performed By: #### 4 [id number] ####[facility] [address] [place] [address] UA Bili CANCELLED Invalid Interpretation Code [facility] Comment on above: Performed By: #### 4 585404799 ####[facility] [address] [place] [address] UA Clarity CANCELLED Invalid Interpretation Code [facility] Comment on above: Performed By: #### 4 561308660 ####[facility] [address] [place] [address] UA Glucose CANCELLED Invalid Interpretation Code [facility] Comment on above: Performed By: #### 4 [id number] ####[facility] [address] [place] [address] UA Leuk Est CANCELLED Invalid Interpretation Code [facility] Comment on above: Performed By: #### 4 518124614 ####[facility] [address] [place] [address] UA Nitrite CANCELLED Invalid Interpretation Code [facility] Comment on above: Performed By: #### 4 [id number] ####[facility] [address] [place] [address] UA pH CANCELLED Invalid Interpretation Code 5.0-9.0 [facility] Comment on above: Performed By: #### 4 [id number] ####[facility] [address] [place] [address] UA Protein CANCELLED Invalid Interpretation Code [facility] Comment on above: Performed By: #### 4 [id number] ####[facility] [address] [place] [address] UA Spec Grav CANCELLED Invalid Interpretation Code 1.005-1.03 0 [facility] Comment on above: Performed By: #### 4 [id number] ####[facility] [address] [place] [address] UA Urobilinogen CANCELLED Invalid Interpretation Code [facility] Comment on above: Performed By: #### 4 [id number] ####[facility] [address] [place] [address] URINALYSISOrdered By: Lilibeth Farrell on 08-14-2023 Color (U) CANCELLED Invalid Interpretation Code >=0 [facility] UA Auto SS Comment on above: Interpretive Data: M icroscopic readings are only performed on those samples that meet specific criteria set forth by [facility]. Ketones Ql (U) CANCELLED Invalid Interpretation Code [facility] UA Auto SS UA Bili CANCELLED Invalid Interpretation Code [facility] UA Auto SS UA Blood CANCELLED Invalid Interpretation Code [facility] UA Auto SS UA Clarity CANCELLED Invalid Interpretation Code [facility] UA Auto SS UA Glucose CANCELLED Invalid Interpretation Code [facility] UA Auto SS UA Leuk Est CANCELLED Invalid Interpretation Code [facility] UA Auto SS UA Nitrite CANCELLED Invalid Interpretation Code [facility] UA Auto SS UA pH CANCELLED Invalid Interpretation Code 5.0 - 9.0 [facility] UA Auto SS UA Protein CANCELLED Invalid Interpretation Code [facility] UA Auto SS UA Spec Grav CANCELLED Invalid Interpretation Code 1.005 - 1.030 [facility] UA Auto SS UA Urobilinogen CANCELLED Invalid Interpretation Code [facility] UA Auto SS Bilirubin Ql (U) Negative (08/14/23 10:16 AM) Normal Negative [facility] UA Auto SS Clarity (U) Clear (08/14/23 10:16 AM) Normal Clear [facility] UA Auto SS [...] AM) Normal Negative [facility] UA Auto SS Wickes.plasma/Wickes .RBC (Bld) [Mass ratio] 0-3 /HPF Normal [...] Spec Desc Mcdonough (08/14/23 10:16 AM) Normal [facility] UA Auto SS Urobilinogen Qn (U) 0.8643979 {Rolan'U}/dL Normal 0.0 - 1.0 EU/dL [facility] UA Auto SS WBC Auto Ql (U) Negative (08/14/23 10:16 AM) Normal Negative [facility] UA Auto SS WBC LM.HPF (Urine sed) [#/Area] 0-5 /HPF Normal 0-5/HPF [facility] UA Auto SS URINALYSISOrdered By: Johny Willson on 08-14-2023 UA Spec Desc CANCELLED Invalid Interpretation Code [facility] UA Auto SS Work Phone: Comment on above: Result Comment: CANC ELLED eGFRon 08-14-2023 eGFR 59 mL/min/1.73 m2 Normal >=59 [facility] Comment on above: Order Comment: Order added by Discern Expert. Performed By: #### 2 427227, 75666751, 9520588, 4978797 ####[facility] [address] [place] [address] Capillary Glucose POCon 07-25 Glucose [Mass/Vol] 145 mg/dL High 55-99 [facility] Comment on above: Performed By: #### 2 33334675 ####[facility] [address] [place] [address] Consent for Treatmenton 07-25 Consent for Treatment [id number]#1.00TIFF Normal [facility] Discharge Instructionson Discharge Instructions [id number]#1.00TIFF Normal [facility] ED Clinical Summaryon 2023 ED Clinical Summary Normal [facility] ED Note-Physicianon 08-13-19 ED Note-Physician Normal [facility] Comment on above: Result Comment: Elec tronically Signed By: Mati Taylor DO.br\Date and Time Signed: 08/13/23 21:29 EDT ED Patient Education Noteon 08-13-2023 ED Patient Education Note Normal [facility] ED Patient Summaryon 024 ED Patient Summary Normal [facility] Pre-Arrival Noteon Pre-Arrival Note Normal [facility] C Urineon 08-12-2023 Bacteria identified Cx Nom (U) Normal [facility] Comment on above: Performed By: #### 1 2607632, 5584919 ####[facility] [address] [place] [address] Consent for Treatmenton 07-24 Consent for Treatment [id number]#1.00TIFF Normal [facility] Discharge Instructionson Discharge Instructions [id number]#1.00TIFF Normal [facility] ED Clinical Summaryon 2023 ED Clinical Summary Normal [facility] ED Note-Physicianon 08-12-19 ED Note-Physician Normal [facility] Comment on above: Result Comment: Elec tronically Signed By: Deborah Talavera PA-C\.br\Date and Time Signed: 08/12/23 21:34 EDT\.br\Electronically Co-Signed By: Mati Taylor DO\.br\Date and Time Co-Signed: 08/12/23 23:03 EDT ED Patient Education Noteon 08-12-2023 ED Patient Education Note Normal [facility] ED Patient Summaryon 024 ED Patient Summary Normal [facility] Pre-Arrival Noteon Pre-Arrival Note Normal [facility] UA With Cult Reflexon 2023 Bacteria LM Ql (Urine sed) TRACE Normal Trace [facility] Comment on above: Performed By: #### 2 826642, [id number] ####[facility] [address] [place] [address] Bilirubin Ql (U) Negative Normal Negative [facility] Comment on above: Performed By: #### 2 020566, 59769290 ####[facility] [address] [place] [address] Clarity (U) CLEAR Normal Clear [facility] Comment on above: Performed By: #### 2 886512, 18131844 ####[facility] [address] [place] [address] Color (U) YELLOW Normal Yellow [facility] Comment on above: Performed By: #### 2 801888, 40629321 ####[facility] [address] [place] [address] Epithelial cells.squamous LM.HPF (Urine sed) [#/Area] 0-2 Normal 0-2 [facility] Comment on above: Performed By: #### 2 792476, 53372713 ####[facility] [address] [place] [address] Glucose Test strip (U) [Mass/Vol] Negative Normal Negative [facility] Comment on above: Performed By: #### 2 048345, 01217488 ####[address] [address] Hemoglobin Ql (U) Negative Normal Negative [facility] Comment on above: Performed By: #### 2 943461, 57988272 ####[address] [address] Ketones (U) [Mass/Vol] Negative Normal Negative [facility] Comment on above: Performed By: #### 2 992253, 67845597 ####[address] [address] Wickes.plasma/Wickes .RBC (Bld) [Mass ratio] 0-3 Normal 0-3 [facility] Comment on above: Performed By: #### 2 154526, 84407770 ####[address] [address] Nitrite Ql (U) Negative Normal Negative [facility] Comment on above: Performed By: #### 2 949356, 62645305 ####[address] [address] pH (U) 8.0 [pH] Invalid Interpretation Code 5.0-9.0 [facility] Comment on above: Performed By: #### 2 990449, 35132658 ####[facility] [address] [place] [address] Protein (U) [Mass/Vol] TRACE Abnormal Negative [facility] Comment on above: Performed By: #### 2 760902, 18222883 ####[address] [address] Specific gravity (U) [Rel density] 1.020 Invalid Interpretation Code 1.005-1.03 0 [facility] Comment on above: Performed By: #### 2 811936, [id number] ####[facility] [address] [place] [address] Type of Urine collection method Mcdonough Normal [facility] Comment on above: Performed By: #### 2 436930, 65400285 ####[place] [address] Urobilinogen Qn (U) 0.2 {Rolan'U}/dL Normal 0.0-1.0 [facility] Comment on above: Performed By: #### 2 149012, [id number] ####[place] [address] WBC Auto Ql (U) 1+ Abnormal Negative [facility] Comment on above: Performed By: #### 2 672906, [id number] ####[facility] [address] [place] [address] WBC LM.HPF (Urine sed) [#/Area] 6-15 Abnormal 0-5 [facility] Comment on above: Performed By: #### 2 749528, [id number] ####[facility] [address] [place] [address] URINALYSISOrdered By: Luis Trotter on 08-12-2023 Bacteria LM Ql (Urine sed) Trace /HPF Normal Trace/HPF [facility] UA Auto SS Bilirubin Ql (U) Negative (08/12/23 7:41 PM) Normal Negative [facility] UA Auto SS Clarity (U) Clear (08/12/23 7:41 PM) Normal Clear [facility] UA Auto SS Color (U) Yellow (08/12/23 [...] PM) Normal Negative [facility] UA Auto SS Wickes.plasma/Wickes .RBC (Bld) [Mass ratio] 0-3 /HPF Normal [...] [facility] UA Auto SS Urobilinogen Qn (U) 0.6243859 {Rolan'U}/dL Normal 0.0 - 1.0 EU/dL [facility] UA Auto SS WBC Auto Ql (U) 1+ *ABN* (08/12/23 7:41 PM) Invalid Interpretation Code Negative [facility] UA Auto SS WBC LM.HPF (Urine sed) [#/Area] 6-15 /HPF Invalid Interpretation Code 0-5/HPF [facility] UA Auto SS BMPon 08-10-2023 Anion gap [Moles/Vol] 10 mmol/L Normal 6-16 [facility] Comment on above: Performed By: #### 2 340200, 39087898, 2475993, 2970352, 9221651 ####[facility] [address] [place] [address] Calcium [Mass/Vol] 9.1 mg/dL Normal 8.9-11.1 [facility] Comment on above: Performed By: #### 2 154582, 47562150, 2807968, 3692745, 9425857 ####[facility] [address] [place] [address] Chloride [Moles/Vol] 104 mmol/L Normal 101-111 [facility] Comment on above: Performed By: #### 2 924975, 55084495, 9643240, 4277207, 3727735 ####[facility] [address] [place] [address] CO2 [Moles/Vol] 30 mmol/L Normal 21-31 [facility] Comment on above: Performed By: #### 2 281567, 76685697, 8497142, 3271636, 1512416 ####[facility] [address] [place] [address] Creatinine [Mass/Vol] 1.1 mg/dL Normal 0.5-1.3 [facility] Comment on above: Performed By: #### 2 569421, 04791709, 3031836, 4924998, 8469943 ####[facility] [address] [place] [address] Glucose [Mass/Vol] 129 mg/dL Normal 55-199 [facility] Comment on above: Performed By: #### 2 545619, 21360693, 8938845, 5556164, 6323508 ####[facility] [address] [place] [address] Potassium [Moles/Vol] 3.2 mmol/L Low 3.5-5.3 [facility] Comment on above: Performed By: #### 2 793533, 53446853, 7021406, 5739855, 6316484 ####[facility] [address] [place] [address] Sodium [Moles/Vol] 141 mmol/L Normal 135-145 [facility] Comment on above: Performed By: #### 2 263374, 34874470, 0850463, 1686549, 0884685 ####[facility] [address] [place] [address] Urea nitrogen [Mass/Vol] 6 mg/dL Normal 5-21 [facility] Comment on above: Performed By: #### 2 871449, 06543089, 3302407, 7451146, 2944056 ####[facility] [address] [place] [address] Urea nitrogen/Creatinine [Mass ratio] 6 No Units Low 10-20 [facility] Comment on above: Performed By: #### 2 612179, 79874289, 0596258, 4865724, 7808347 ####[facility] [address] [place] [address] C Urineon 08-10-2023 Bacteria identified Cx Nom (U) Normal [facility] Comment on above: Performed By: #### 1 6591637, 0875476 ####[facility] [address] [place] [address] Discharge Instructionson Discharge Instructions [id number] Normal [facility] ED Clinical Summaryon 2023 ED Clinical Summary Normal [facility] ED Note-Physicianon 08-10-19 ED Note-Physician Normal [facility] Comment on above: Result Comment: Elec tronically Signed By: Santiago Harrington DO\.br\Date and Time Signed: 08/10/23 00:34 EDT ED Patient Education Noteon 08-10-2023 ED Patient Education Note Normal [facility] ED Patient Summaryon 024 ED Patient Summary Normal [facility] Hep Func Panelon 08-10-2023 Albumin [Mass/Vol] 4.3 g/dL Normal 3.3-5.0 [facility] Comment on above: Performed By: #### 2 659879, 52703955, 8214525, 7636121, 9886707 ####[facility] [address] [place] [address] Albumin/Globulin (S) [Mass conc ratio] 2.0 Normal 1.1-2.2 [facility] Comment on above: Performed By: #### 2 789155, 65518861, 6437323, 3742697, 0719591 ####[facility] [address] [place] [address] ALP [Catalytic activity/Vol] 93 Int._Unit/L Normal 21-98 [facility] Comment on above: Performed By: #### 2 044467, 46029586, 3271985, 1431451, 6339814 ####[facility] [address] [place] [address] ALT No additional P-5'-P [Catalytic activity/Vol] 12 Int._Unit/L Normal 6-46 [facility] Comment on above: Performed By: #### 2 046219, 13060042, 4581809, 3291829, 7907801 ####[facility] [address] [place] [address] AST [Catalytic activity/Vol] 25 Int._Unit/L Normal 5-43 [facility] Comment on above: Performed By: #### 2 360484, 22467940, 9716424, 3034530, 3112412 ####[facility] [address] [place], [place] [address] Bilirubin [Mass/Vol] 0.3 mg/dL Normal 0.0-1.1 [facility] Comment on above: Performed By: #### 2 803405, 11498174, 9352179, 4736534, 8532213 ####[facility] [address] [place] [address] Bilirubin.direct [Mass/Vol] 0.1 mg/dL Normal 0.0-0.4 [facility] Comment on above: Performed By: #### 2 855041, 70652956, 6099065, 1255277, 9096727 ####[facility] [address] [place] [address] Bilirubin.indirect [Mass or moles/Vol] 0.2 mg/dL Normal 0.1-0.9 [facility] Comment on above: Performed By: #### 2 266408, 14354982, 8964131, 8042365, 1952802 ####[facility] [address] [place] [address] Globulin (S) [Mass/Vol] 2.2 g/dL Normal 1.4-4.0 [facility] Comment on above: Performed By: #### 2 371703, 65218845, 6331041, 4293185, 1780065 ####[facility] [address] [place] [address] Protein [Mass/Vol] 6.5 g/dL Normal 6.0-7.8 [facility] Comment on above: Performed By: #### 2 779960, 36984853, 8956959, 8286623, 3709621 ####[facility] [address] [place] [address] Lipase Levelon 08-10-2023 Lipase [Catalytic activity/Vol] 12 U/L Low 13-58 [facility] Comment on above: Performed By: #### 2 119467, 13976123, 5755446, 4471857, 0707901 ####[facility] [address] [place] [address] UA With Cult Reflexon 2023 Bacteria LM Ql (Urine sed) TRACE Normal Trace [facility] Comment on above: Performed By: #### 1 1364705, 3882168 ####[address] [address] Bilirubin Ql (U) Negative Normal Negative [facility] Comment on above: Performed By: #### 1 0249660, 7450631 ####[address] [address] Clarity (U) SL CLOUDY Invalid Interpretation Code [facility] Comment on above: Performed By: #### 1 3333679, 9902358 ####[facility] [address] [place] [address] Color (U) STRAW Invalid Interpretation Code [facility] Comment on above: Performed By: #### 1 6115218, 6760242 ####[address] [address] Epithelial cells.squamous LM.HPF (Urine sed) [#/Area] 5-8 Normal 0-2 [facility] Comment on above: Performed By: #### 1 7152535, 4860930 ####[facility] [address] [place] [address] Glucose Test strip (U) [Mass/Vol] Negative Normal Negative [facility] Comment on above: Performed By: #### 1 1867890, 8233171 ####[facility] [address] [place] [address] Hemoglobin Ql (U) TRACE Abnormal Negative [facility] Comment on above: Performed By: #### 1 1398106, 8100623 ####[facility] [address] [place] [address] Ketones (U) [Mass/Vol] Negative Normal Negative [facility] Comment on above: Performed By: #### 1 3958881, 2601738 ####[facility] [address] [place] [address] Wickes.plasma/Wickes .RBC (Bld) [Mass ratio] 4-20 Normal 0-3 [facility] Comment on above: Performed By: #### 1 8271476, 3084640 ####[facility] [address] [place] [address] Nitrite Ql (U) Negative Normal Negative [facility] Comment on above: Performed By: #### 1 3085435, 6436641 ####[facility] [address] [place] [address] pH (U) 6.0 [pH] Invalid Interpretation Code 5.0-9.0 [facility] Comment on above: Performed By: #### 1 5110296, 1346941 ####[facility] [address] [place] [address] Protein (U) [Mass/Vol] Negative Normal Negative [facility] Comment on above: Performed By: #### 1 1603850, 2765549 ####[facility] [address] [place] [address] Specific gravity (U) [Rel density] 1.015 Invalid Interpretation Code 1.005-1.03 0 [facility] Comment on above: Performed By: #### 1 4467514, 6600997 ####[facility] [address] [place] [address] Type of Urine collection method Clean Catch Normal [facility] Comment on above: Performed By: #### 1 6794895, 4505002 ####[facility] [address] [place] [id number] Urobilinogen Qn (U) 0.2 {Rolan'U}/dL Normal 0.0-1.0 [facility] Comment on above: Performed By: #### 1 4270216, 7485158 ####[facility] [address] [place] [address] WBC Auto Ql (U) 3+ Abnormal Negative [facility] Comment on above: Performed By: #### 1 4277046, 2268068 ####[facility] [address] [place] [address] WBC LM.HPF (Urine sed) [#/Area] 6-15 Abnormal 0-5 [facility] Comment on above: Performed By: #### 1 4113938, 0157470 ####[facility] [address] [place] [address] URINALYSISOrdered By: Leilani Galloway on 08-10-2023 Bacteria LM Ql (Urine sed) Trace /HPF Normal Trace/HPF [facility] UA Auto SS Bilirubin Ql (U) Negative (08/10/23 12:03 AM) Normal Negative [facility] UA Auto SS Clarity (U) SL CLOUDY Invalid Interpretation Code [facility] UA Auto SS Color (U) STRAW Invalid Interpretation Code [facility] UA Auto SS Epithelial cells.squamous LM.HPF (Urine sed) [#/Area] 5-8 /HPF Normal 0-2/HPF [facility] UA Auto SS Glucose Test strip (U) [Mass/Vol] Negative (08/10/23 12:03 AM) Normal Negative [facility] UA Auto SS Hemoglobin Ql (U) Trace *ABN* (08/10/23 12:03 AM) Invalid Interpretation Code Negative [facility] UA Auto SS Ketones (U) [Mass/Vol] Negative (08/10/23 12:03 AM) Normal Negative [facility] UA Auto SS Wickes.plasma/Wickes .RBC (Bld) [Mass ratio] 4-20 /HPF Normal 0-3/HPF [facility] UA Auto SS Nitrite Ql (U) Negative (08/10/23 12:03 AM) Normal Negative [facility] UA Auto SS pH (U) 6.0 *NA* (08/10/23 12:03 AM) Invalid Interpretation Code 5.0 - 9.0 [facility] UA Auto SS Protein (U) [Mass/Vol] Negative (08/10/23 12:03 AM) Normal Negative [facility] UA Auto SS Specific gravity (U) [Rel density] 1.015 *NA* (08/10/23 12:03 AM) Invalid Interpretation Code 1.005 - 1.030 [facility] UA Auto SS UA Spec Desc Clean Catch (08/10/23 12:03 AM) Normal [facility] UA Auto SS Urobilinogen Qn (U) 0.0902946 {Rolan'U}/dL Normal 0.0 - 1.0 EU/dL [facility] UA Auto SS WBC Auto Ql (U) 3+ *ABN* (08/10/23 12:03 AM) Invalid Interpretation Code Negative [facility] UA Auto SS WBC LM.HPF (Urine sed) [#/Area] 6-15 /HPF Invalid Interpretation Code 0-5/HPF [facility] UA Auto SS eGFRon 08-10-2023 eGFR 52 mL/min/1.73 m2 Low >=59 [facility] Comment on above: Order Comment: Order added by Discern Expert. Performed By: #### 2 278745, 95722643, 0102109, 1962926, 7501856 ####[facility] [address] [place] [address] CBC w/ Auto Diffon 4 Basophils/100 WBC (Bld) 0.6 % Normal 0.0-2.0 [facility] Comment on above: Performed By: #### 2 413690, 27495602, 1414563, 8561603, 7094970 ####[facility] [address] [place] [address] Basophils/Leukocytes Auto (Bld) [Pure # fraction] 0.0 E9/L Normal 0.0-0.2 [facility] Comment on above: Performed By: #### 2 138069, 34119399, 8963915, 0891591, 1973951 ####[address] [address] Eosinophils (Bld) [#/Vol] 0.2 E9/L Normal 0.0-0.5 [facility] Comment on above: Performed By: #### 2 694291, 53845259, 2088703, 4916463, 0144425 ####[address] [address] Eosinophils/100 WBC (Bld) 3.2 % Normal 0.0-8.0 [facility] Comment on above: Performed By: #### 2 745467, 31629291, 9213630, 9147291, 9146766 ####[address] [address] Erythrocyte distribution width (RBC) [Ratio] 12.8 % Normal 10.9-14.2 [facility] Comment on above: Performed By: #### 2 603058, 51001721, 1537004, 0982761, 0326278 ####[address] [address] Hematocrit (Bld) [Volume fraction] 39.1 % Normal 34.0-46.0 [facility] Comment on above: Performed By: #### 2 654368, 71369546, 2526634, 9434879, 5010989 ####[address] [address] Hemoglobin (Bld) [Mass/Vol] 12.6 g/dL Normal 12.0-16.0 [facility] Comment on above: Performed By: #### 2 120546, 43239018, 9875194, 0483986, 6245796 ####[address] [address] Lymphocytes (Bld) [#/Vol] 1.5 E9/L Normal 1.0-4.0 [facility] Comment on above: Performed By: #### 2 651456, 44534129, 7331010, 6001516, 1698238 ####[address] [address] Lymphocytes/100 WBC (Bld) 22.7 % Normal 14.0-50.0 [facility] Comment on above: Performed By: #### 2 771828, 68678949, 9554654, 1595496, 7220932 ####[address] [address] MCH (RBC) [Entitic mass] 28.5 pg Normal 27.0-34.0 [facility] Comment on above: Performed By: #### 2 440387, 02369507, 2313516, 5643866, 4795270 ####[address] [address] MCHC (RBC) [Mass/Vol] 32.3 g/dL Normal 31.4-36.0 [facility] Comment on above: Performed By: #### 2 069201, 38382890, 3258152, 5804574, 1753221 ####[address] [address] MCV (RBC) [Entitic vol] 88.4 fL Normal 80.0-100.0 [facility] Comment on above: Performed By: #### 2 517437, 90925095, 4480467, 5478106, 2114911 ####[address] [address] Monocytes (Bld) [#/Vol] 0.6 E9/L Normal 0.2-1.0 [facility] Comment on above: Performed By: #### 2 448796, 08906171, 0410117, 4091318, 4343209 ####[address] [address] Neutrophils (Bld) [#/Vol] 4.2 E9/L Normal 2.0-7.5 [facility] Comment on above: Performed By: #### 2 917706, 95599264, 5088768, 0803415, 2165473 ####[place] [address] [place] [address] Neutrophils/100 WBC (Bld) 64.8 % Normal 36.0-75.0 [facility] Comment on above: Performed By: #### 2 927169, 33330923, 9549698, 0517301, 0892445 ####[address] [address] Platelet mean volume (Bld) [Entitic vol] 7.2 fL Normal 6.4-10.8 [facility] Comment on above: Performed By: #### 2 924693, 67189557, 5336339, 1222314, 6212745 ####[address] [address] Platelets (Bld) [#/Vol] 222.0 E9/L Normal 150.0-500. 0 [facility] Comment on above: Performed By: #### 2 804216, 89501545, 2487629, 8730378, 3492376 ####[address] [address] RBC (Bld) [#/Vol] 4.4 E12/L Normal 4.3-5.9 [facility] Comment on above: Performed By: #### 2 636311, 08007250, 3705128, 4439051, 7716394 ####[address] [address] WBC corrected for nucl RBC Auto (Bld) [#/Vol] 6.4 E9/L Normal 4.0-11.0 [facility] Comment on above: Performed By: #### 2 092131, 50000587, 9512928, 0766061, 5053111 ####[address] [address] CHEMISTRYOrdered By: SYSTEM SYSTEM on 08-09-2023 Albumin [...] for Treatmenton 07-24 Consent for Treatment [id number]#[id number] Normal [facility] HEMATOLOGYOrdered By: SYSTEM SYSTEM on 08-09-2023 [...] Remisol Heme Pre-Arrival Noteon Pre-Arrival Note Normal [facility] ED Note-Physicianon 08-08-19 24 ED Note-Physician Normal [facility] Comment on above: Result Comment: Elec tronically Signed By: Deborah Talavera PA-C\.br\Date and Time Signed: 08/08/23 00:49 EDT\.br\Electronically Co-Signed By: Didier Hooks M.D.\.br\Date and Time Co-Signed: 08/08/23 07:11 EDT Consent for Treatmenton 07-24 Consent for Treatment [id number] Normal [facility] Discharge Instructionson Discharge Instructions [id number]#[id number] Normal [facility] ED Clinical Summaryon 2023 ED Clinical Summary Normal [facility] ED Patient Education Noteon 08-07-2023 ED Patient Education Note Normal [facility] ED Patient Summaryon 024 ED Patient Summary Normal [facility] UA With Cult Reflexon 2023 Bacteria LM Ql (Urine sed) 2+ /HPF Abnormal Trace [facility] Comment on above: Order Comment: Urina ry Catheter Insertion triggered Urinalysis With Culture Reflex order by discern. Performed By: #### 1 0450807, 9899102 ####[address] [address] Bilirubin Ql (U) Negative Normal Negative [facility] Comment on above: Order Comment: Urina ry Catheter Insertion triggered Urinalysis With Culture Reflex order by discern. Performed By: #### 1 6126197, 9117795 ####[place] [address] Clarity (U) SL CLOUDY Invalid Interpretation Code [facility] Comment on above: Order Comment: Urina ry Catheter Insertion triggered Urinalysis With Culture Reflex order by discern. Performed By: #### 1 5214222, 4297024 ####[place] [address] Color (U) YELLOW Normal Yellow [facility] Comment on above: Order Comment: Urina ry Catheter Insertion triggered Urinalysis With Culture Reflex order by discern. Performed By: #### 1 0613390, 3561320 ####[place] [address]457 Epithelial cells.squamous LM.HPF (Urine sed) [#/Area] 0-2 Normal 0-2 [facility] Comment on above: Order Comment: Urina ry Catheter Insertion triggered Urinalysis With Culture Reflex order by discern. Performed By: #### 1 5814352, 4990140 ####[place] [address] Glucose Test strip (U) [Mass/Vol] Negative Normal Negative [facility] Comment on above: Order Comment: Urina ry Catheter Insertion triggered Urinalysis With Culture Reflex order by discern. Performed By: #### 1 5498390, 0243534 ####[address] [address] Hemoglobin Ql (U) Negative Normal Negative [facility] Comment on above: Order Comment: Urina ry Catheter Insertion triggered Urinalysis With Culture Reflex order by discern. Performed By: #### 1 4769500, 0555590 ####[facility] [address] [place] [address] Ketones (U) [Mass/Vol] Negative Normal Negative [facility] Comment on above: Order Comment: Urina ry Catheter Insertion triggered Urinalysis With Culture Reflex order by discern. Performed By: #### 1 7494937, 1767576 ####[address] [address] Wickes.plasma/Wickes .RBC (Bld) [Mass ratio] 0-3 Normal 0-3 [facility] Comment on above: Order Comment: Urina ry Catheter Insertion triggered Urinalysis With Culture Reflex order by discern. Performed By: #### 1 3845754, 3346938 ####[address] [address] Mucus Ql (Urine sed) 1+ Normal [facility] Comment on above: Order Comment: Urina ry Catheter Insertion triggered Urinalysis With Culture Reflex order by discern. Performed By: #### 1 2628581, 3801132 ####[address] [address] Nitrite Ql (U) Negative Normal Negative [facility] Comment on above: Order Comment: Urina ry Catheter Insertion triggered Urinalysis With Culture Reflex order by discern. Performed By: #### 1 0811212, 6745377 ####[address] [address] pH (U) 7.5 [pH] Invalid Interpretation Code 5.0-9.0 [facility] Comment on above: Order Comment: Urina ry Catheter Insertion triggered Urinalysis With Culture Reflex order by discern. Performed By: #### 1 2275917, 9680087 ####[address] [address] Protein (U) [Mass/Vol] Negative Normal Negative [facility] Comment on above: Order Comment: Urina ry Catheter Insertion triggered Urinalysis With Culture Reflex order by discern. Performed By: #### 1 8168199, 1826832 ####[address] [address] Specific gravity (U) [Rel density] 1.010 Invalid Interpretation Code 1.005-1.03 0 [facility] Comment on above: Order Comment: Urina ry Catheter Insertion triggered Urinalysis With Culture Reflex order by discern. Performed By: #### 1 9333742, 9127956 ####[place] [address] Type of Urine collection method Clean Catch Normal [facility] Comment on above: Order Comment: Urina ry Catheter Insertion triggered Urinalysis With Culture Reflex order by discern. Performed By: #### 1 5488916, 0790035 ####[place] [address] Urobilinogen Qn (U) 0.2 {Rolan'U}/dL Normal 0.0-1.0 [facility] Comment on above: Order Comment: Urina ry Catheter Insertion triggered Urinalysis With Culture Reflex order by discern. Performed By: #### 1 5661864, [id number] ####[place] [address] WBC Auto Ql (U) 3+ Abnormal Negative [facility] Comment on above: Order Comment: Urina ry Catheter Insertion triggered Urinalysis With Culture Reflex order by discern. Performed By: #### 1 [id number] ####[place] [address] WBC LM.HPF (Urine sed) [#/Area] 6-15 Abnormal 0-5 [facility] Comment on above: Order Comment: Urina ry Catheter Insertion triggered Urinalysis With Culture Reflex order by discern. Performed By: #### 1 [id number], [id number] ####[place] [address] URINALYSISOrdered By: Chelsy Lujan on 08-07-2023 Bacteria LM Ql (Urine sed) 2+ /HPF Invalid Interpretation Code Trace/HPF [facility] UA Auto SS Bilirubin Ql (U) Negative (08/07/23 3:48 PM) Normal Negative [facility] UA Auto SS Clarity (U) SL CLOUDY [...] PM) Normal Negative [facility] UA Auto SS Wickes.plasma/Wickes .RBC (Bld) [Mass ratio] 0-3 /HPF Normal [...] Desc Clean Catch (08/07/23 3:48 PM) Normal [facility] UA Auto SS Urobilinogen Qn (U) 0.0221229 {Rolna'U}/dL Normal 0.0 - 1.0 EU/dL [facility] UA Auto SS WBC Auto Ql (U) 3+ *ABN* (08/07/23 3:48 PM) Invalid Interpretation Code Negative [facility] UA Auto SS WBC LM.HPF (Urine sed) [#/Area] 6-15 /HPF Invalid Interpretation Code 0-5/HPF [facility] UA Auto SS Activated partial thrombopla stin time (aPTT) in platelet poor plasma by coagulation aOrdered By: Bebe Ortiz on 07-05-2023 aPTT Coag (PPP) [Time] 31.4 s 25.1-36.5 [facility] Comment on above: A hematocrit value g reater than 55% may lead to inaccurate results in coagulation testing. Patients having hematocrit values >55% require a special collection tube for coagulation studies. Please contact the laboratory at [phone] for redraw instructions. Alanine aminotransferase [En zymatic activity/volume] in Serum or PlasmaOrdered By: Bebe Ortiz on 07-05-2023 ALT [Catalytic activity/Vol] 8 U/L Normal 7-52 [facility] Comment on above: Performed By: #### C MP, CK, HS TROP, CBC #### [facility] [address] Albumin [Mass/volume] in Ser um or Plasma by Bromocresol green (BCG) dye binding methoOrdered By: Bebe Ortiz on 07-05-2023 Albumin BCG dye [Mass/Vol] 4.4 g/dL 3.5-5.7 [facility] Alkaline phosphatase [Enzyma tic activity/volume] in Serum or PlasmaOrdered By: Bebe Ortiz on 07-05-2023 ALP [Catalytic activity/Vol] 96 U/L Normal 34-104 [facility] Comment on above: Performed By: #### C MP, CK, HS TROP, CBC #### [address] Amphetamine Screen Ql (U)Ord ered By: Bebe Ortiz on 07-05-2023 Amphetamines Ql (U) Negative Negative [facility] Aspartate aminotransferase [ Enzymatic activity/volume] in Serum or PlasmaOrdered By: Bebe Ortiz on 07-05-2023 AST [Catalytic activity/Vol] 17 U/L Normal 13-39 [facility] Comment on above: Performed By: #### C MP, CK, HS TROP, CBC #### [facility] [address] [place] [address] [place] Automated basophil %Ordered By: Bebe Ortiz on 07-05-2023 Basophils/100 WBC (Bld) 0.7 % Normal . [facility] Comment on above: Performed By: #### C MP, CK, HS TROP, CBC #### [address] Automated basophil countOrde red By: Bebe Ortiz on 07-05-2023 Basophils (Bld) [#/Vol] 0.1 10*3/uL Normal 0.0-0.2 [facility] Comment on above: Result Comment: PERF ORMED BY: [place] [address] PATHOLOGIST SURFACE GRINDER CORIE SILVA M.D. Performed By: #### C MP, CK, HS TROP, CBC #### [address] Automated blood monocyte cou ntOrdered By: Bebe Ortiz on 07-05-2023 Monocytes (Bld) [#/Vol] 0.7 10*3/uL Normal 0.0-0.8 [facility] Comment on above: Performed By: #### C MP, CK, HS TROP, CBC #### [address] Automated eosinophil %Ordere d By: Bebe Ortiz on 07-05-2023 Eosinophils/100 WBC (Bld) 2.1 % Normal . [facility] Comment on above: Performed By: #### C MP, CK, HS TROP, CBC #### [address] Automated eosinophil countOr dered By: Bebe Ortiz on 07-05-2023 Eosinophils (Bld) [#/Vol] 0.2 10*3/uL Normal 0.0-0.45 [facility] Comment on above: Performed By: #### C MP, CK, HS TROP, CBC #### [address] Automated erythrocytes count in urine sediment (number/area)Ordered By: Bebe Ortiz on 07-05-2023 RBC Auto (Urine sed) [#/Area] 5-9 [HPF] 0-4 [facility] Automated leukocytes count i n urine sediment (number/area)Ordered By: Bebe Ortiz on 07-05-2023 WBC Auto (Urine sed) [#/Area] 50-100 [HPF] 0-4 [facility] Automated monocyte %Ordered By: Bebe Ortiz on 07-05-2023 Monocytes/100 WBC (Bld) 9.0 % Normal . [facility] Comment on above: Performed By: #### C MP, CK, HS TROP, CBC #### [facility] [address] Automated neutrophil %Ordere d By: Bebe Oritz on 07-05-2023 Neutrophils/100 WBC (Bld) 68.6 % Normal . [facility] Comment on above: Performed By: #### C MP, CK, HS TROP, CBC #### [facility] [address] Automated urine color determ inationOrdered By: Bebe Ortiz on 07-05-2023 Color (U) Yellow Normal Yellow [facility] Comment on above: Order Comment: Name Collection Type:: Straight Catheter Performed By: #### C UU, URDS, ADDONUAPLUS #### [facility] [address] Barbiturates [Presence] in U rine by Screen methodOrdered By: Bebe Ortiz on 07-05-2023 Barbiturates Screen Ql (U) Negative Negative [facility] Benzodiazepines Screen Ql (U )Ordered By: Bebe Ortiz on 07-05-2023 Benzodiazepines Ql (U) Negative Negative [facility] Benzoylecgonine [Presence] i n Urine by Screen methodOrdered By: Bebe Ortiz on 07-05-2023 Benzoylecgonine Screen Ql (U) Negative Negative [facility] Bilirubin Test strip Ql (U)O rdered By: Bebe Ortiz on 07-05-2023 Bilirubin Ql (U) Negative Negative [facility] Bilirubin.total [Mass/volume ] in Serum or PlasmaOrdered By: Bebe Ortiz on 07-05-2023 Bilirubin [Mass/Vol] 0.5 mg/dL Normal 0.3-1.0 [facility] Comment on above: Performed By: #### C MP, CK, HS TROP, CBC #### [facility] [address] head/brain wo conon 07-05 CT head/brain wo con [facility] [address] [place] [address] [place] [address] CT Scan Report Signed Patient: Maegan Dye MR#: [id number] : 1950 Acct:[id number] Age/Sex: 73 / F ADM Date: 07/05/23 Loc: ER Room: Type: [facility] ER Attending Dr: Copies to: Bebe Ortiz [...] Ángel Littlejohn M.D.07/05/2023 5:14 PM Dictation Location: [place] [address] Transcribed By: [facility] 07/05/231713 Dictated By: Ángel Littlejohn II, MD 07/05/231709 Signed By: 07/05/231713 Normal [facility] Calcium [Mass/volume] in Ser um or PlasmaOrdered By: Bebe Ortiz on 07-05-2023 Calcium [Mass/Vol] 9.7 mg/dL Normal 8.6-10.3 [facility] Comment on above: Performed By: #### C MP, CK, HS TROP, CBC #### [address] Cannabinoids [Presence] in U rine by Screen methodOrdered By: Bebe Ortiz on 07-05-2023 Cannabinoids Screen Ql (U) Negative Negative [facility] Comment on above: These are unconfirme d results and should not be used for legal purposes. Drug Cut-Off Concentration: AMPH 1000 ng/mL PHILL 200 ng/mL ROBERT 200 ng/mL COCM 300 ng/mL OP 300 ng/mL PCP 25 ng/mL THC 20 ng/mL Carbon dioxide, total [Moles /volume] in Serum or PlasmaOrdered By: Bebe Ortiz on 07-05-2023 CO2 [Moles/Vol] 29.2 mmol/L Normal 21.0-31.0 [facility] Comment on above: Performed By: #### C MP, CK, HS TROP, CBC #### [address] Chloride [Moles/volume] in S clarisa or PlasmaOrdered By: Bebe Ortiz on 07-05-2023 Chloride [Moles/Vol] 101 mmol/L Normal 98-107 [facility] Comment on above: Performed By: #### C MP, CK, HS TROP, CBC #### [address] Complete Blood Count Auto Di ffon 07-05-2023 Mean Corpuscular HGB Conc 32.5 g/dL Normal 32.0-35.0 [facility] Comment on above: Performed By: #### C MP, CK, HS TROP, CBC #### [address] Monocytes/100 WBC (Bld) 17.07 % Normal 0.00-20.00 [facility] Comment on above: Performed By: #### C MP, CK, HS TROP, CBC #### [address] NRBC% 0.1 /100{WBC} Normal 0-0.5 [facility] Comment on above: Performed By: #### C MP, CK, HS TROP, CBC #### [address] Comprehensive Metabolic Pane isauro 07-05-2023 Albumin [Mass/Vol] 4.4 g/dL Normal 3.5-5.7 [facility] Comment on above: Performed By: #### C MP, CK, HS TROP, CBC #### [address] Creatinine Clr Calc Pharmacy 34.02 Normal [facility] Comment on above: Result Comment: PERF ORMED BY: [place] [address] PATHOLOGIST SURFACE GRINDER CORIE SILVA M.D. Performed By: #### C MP, CK, HS TROP, CBC #### [address] GFR/1.73 sq M.predicted MDRD (S/P/Bld) [Vol rate/Area] 50.736 mL/min/{1.73_m2} Normal [facility] Comment on above: Performed By: #### C MP, CK, HS TROP, CBC #### [address] Creatinine [Mass/volume] in Serum or PlasmaOrdered By: Bebe Ortiz on 07-05-2023 Creatinine [Mass/Vol] 1.13 mg/dL Normal 0.60-1.[address] [facility] Comment on above: Performed By: #### C MP, CK, HS TROP, CBC #### [place] [address] [place] Dipstick and Microscopicon 0 07-05-2023 Appearance (U) Turbid Critically abnormal Clear [facility] Comment on above: Order Comment: Name Collection Type:: Straight Catheter Performed By: #### C UU, URDS, ADDONUAPLUS #### [address] Bacteria,Urine 2+ High None Seen [facility] Comment on above: Order Comment: Name Collection Type:: Straight Catheter Performed By: #### C UU, URDS, ADDONUAPLUS #### [address] Bilirubin,Urine Negative Normal Negative [facility] Comment on above: Order Comment: Name Collection Type:: Straight Catheter Performed By: #### C UU, URDS, ADDONUAPLUS #### [address] Glucose Ql (U) Normal Normal Normal [facility] Comment on above: Order Comment: Name Collection Type:: Straight Catheter Performed By: #### C UU, URDS, ADDONUAPLUS #### [address] Hyaline Casts,Urine 0-8 Normal 0-8 [facility] Comment on above: Order Comment: Name Collection Type:: Straight Catheter Result Comment: PERF ORMED BY: [place] [address] PATHOLOGIST SURFACE GRINDER CORIE SILVA M.D. Performed By: #### C UU, URDS, ADDONUAPLUS #### [address] Ketones Ql (U) Negative Normal Negative [facility] Comment on above: Order Comment: Name Collection Type:: Straight Catheter Performed By: #### C UU, URDS, ADDONUAPLUS #### [address] Leukocyte esterase Test strip Ql (U) 4+ High Negative [facility] Comment on above: Order Comment: Name Collection Type:: Straight Catheter Performed By: #### C UU, URDS, ADDONUAPLUS #### [address] Nitrite,Urine Negative Normal Negative [facility] Comment on above: Order Comment: Name Collection Type:: Straight Catheter Performed By: #### C UU, URDS, ADDONUAPLUS #### [address] Occult Blood,Urine Trace High Negative [facility] Comment on above: Order Comment: Name Collection Type:: Straight Catheter Result Comment: PERF ORMED BY: [place] [address] PATHOLOGIST SURFACE GRINDER CORIE SILVA M.D. Performed By: #### C UU, URDS, ADDONUAPLUS #### [address] Protein,Urine Negative Normal Negative [facility] Comment on above: Order Comment: Name Collection Type:: Straight Catheter Performed By: #### C UU, URDS, ADDONUAPLUS #### [address] RBC,Urine 5-9 High 0-4 [facility] Comment on above: Order Comment: Name Collection Type:: Straight Catheter Performed By: #### C UU, URDS, ADDONUAPLUS #### [address] Renal Epithelial Cells,Urine 0-1 Normal 0-1 [facility] Comment on above: Order Comment: Name Collection Type:: Straight Catheter Performed By: #### C UU, URDS, ADDONUAPLUS #### [address] Specificy [place],Urine 1.009 Normal 1.001-1.03 0 [facility] Comment on above: Order Comment: Name Collection Type:: Straight Catheter Performed By: #### C UU, URDS, ADDONUAPLUS #### [address] Squamous Epithelial Cell,Urine 10-19 High 0-2 [facility] Comment on above: Order Comment: Name Collection Type:: Straight Catheter Performed By: #### C UU, URDS, ADDONUAPLUS #### [address] Urobilinogen,Urine Normal Normal Normal [facility] Comment on above: Order Comment: Name Collection Type:: Straight Catheter Performed By: #### C UU, URDS, ADDONUAPLUS #### [address] WBC,Urine 50-100 High 0-4 [facility] Comment on above: Order Comment: Name Collection Type:: Straight Catheter Performed By: #### C UU, URDS, ADDONUAPLUS #### [address] Drug Screen,Urineon 07-05-19 24 Amphetamine Screen,Urine Negative Normal Negative [facility] Comment on above: Performed By: #### C UU, URDS, ADDONUAPLUS #### [address] Barbiturate Screen,Urine Negative Normal Negative [facility] Comment on above: Performed By: #### C UU, URDS, ADDONUAPLUS #### [address] Benzodiazepines Screen,Urine Negative Normal Negative [facility] Comment on above: Performed By: #### C UU, URDS, ADDONUAPLUS #### [address] Cannabinoid Screen,Urine Negative Normal Negative [facility] Comment on above: Result Comment: Thes e are unconfirmed results and should not be used for legal purposes. Drug Cut-Off Concentration: AMPH 1000 ng/mL PHILL 200 ng/mL ROBERT 200 ng/mL COCM 300 ng/mL OP 300 ng/mL PCP 25 ng/mL THC 20 ng/mL PERFORMED BY: [place] [address] PATHOLOGIST SURFACE GRINDER CORIE SILVA M.D. Performed By: #### C UU, URDS, ADDONUAPLUS #### [address] Cocaine Screen,Urine Negative Normal Negative [facility] Comment on above: Performed By: #### C UU, URDS, ADDONUAPLUS #### [place] [address] [place] Opiate Screen,Urine Positive High Negative [facility] Comment on above: Performed By: #### C UU, URDS, ADDONUAPLUS #### [address] Phencyclidine Screen,Urine Negative Normal Negative [facility] Comment on above: Performed By: #### C UU, URDS, ADDONUAPLUS #### [address] ECG 12 lead ECGon 07-05-2023 ECG 12 lead ECG [facility] Main [place] [address] [place] [address] Electrocardiograph Report Signed Patient: Maegan Dye MR#: [id number] : 1950 Acct:[id number] Age/Sex: 73 / F ADM Date: 07/05/23 Loc: ER Room: Type: [facility] ER Attending Dr: Ordering Provider: Bebe Ortiz [...] Chandan Kruger MD 07/05/23 1828 Normal [facility] Erythrocyte distribution wid th [Ratio] by Automated countOrdered By: Bebe Ortiz on 07-05-2023 Erythrocyte distribution width (RBC) [Ratio] 12.5 % Normal 11.9-15.3 [facility] Comment on above: Performed By: #### C MP, CK, HS TROP, CBC #### [address] Erythrocytes [#/volume] in B lood by Automated countOrdered By: Bebe Ortiz on 07-05-2023 RBC (Bld) [#/Vol] 4.70 10*6/uL Normal 3.60-5.00 [facility] Comment on above: Performed By: #### C MP, CK, HS TROP, CBC #### [facility] [address] [place] [address] [place] Glucose [Mass/volume] in Ser um or PlasmaOrdered By: Bebe Ortiz on 07-05-2023 Glucose [Mass/Vol] 111 mg/dL High 70-100 [facility] Comment on above: ADA recommended refe rence rangeRandom Glucose Reference Range is dependent on time and content of last meal. Glucose of more than 200 mg/dL in a nonstressed, ambulatory subject supports the diagnosis of Diabetes Mellitus. Result Comment: [place] om Glucose Reference Range is dependent on time and content of last meal. Glucose of more than 200 mg/dL in a nonstressed, ambulatory subject supports the diagnosis of Diabetes Mellitus. ADA recommended reference range Performed By: #### C MP, CK, HS TROP, CBC #### [facility] [address] [place] [address] [place] Hematocrit [Volume Fraction] of Blood by Automated countOrdered By: eBbe Ortiz on 07-05-2023 Hematocrit (Bld) [Volume fraction] 41.3 % Normal 34.0-46.4 [facility] Comment on above: Performed By: #### C MP, CK, HS TROP, CBC #### [facility] [address] [place] [address] [place] Hemoglobin [Mass/volume] in BloodOrdered By: Bebe Ortiz on 07-05-2023 Hemoglobin (Bld) [Mass/Vol] 13.4 g/dL Normal 11.8-15.4 [facility] Comment on above: Performed By: #### C MP, CK, HS TROP, CBC #### [facility] [address] [place] [address] [place] INR in Platelet poor plasma by Coagulation assayOrdered By: Bebe Ortiz on 07-05-2023 INR Coag (PPP) [Relative time] 1.0 {INR} Normal [facility] Comment on above: INR Therapeutic Rang [...] C MP, CK, HS TROP, CBC #### [facility] [address] Ketones Auto test strip (U) [Mass/Vol]Ordered By: Bebe Ortiz on 07-05-2023 Ketones (U) [Mass/Vol] Negative Negative [facility] - UrinalysisOrder ed By: Bebe Ortiz on 07-05-2023 Hyaline casts LM Ql (Urine sed) 0-8 [LPF] 0-8 [facility] Leukocytes [#/volume] correc kenyatta for nucleated erythrocytes in Blood by Automated counOrdered By: Bebe Ortiz on 07-05-2023 WBC corrected for nucl RBC Auto (Bld) [#/Vol] 7.4 10*3/uL 3.8-11.6 [facility] Leukocytes [#/volume] in Blo od by Automated countOrdered By: Bebe Ortiz on 07-05-2023 WBC (Bld) [#/Vol] 7.4 10*3/uL Normal 3.8-11.6 [facility] Comment on above: Performed By: #### C MP, CK, HS TROP, CBC #### [facility] [address] Lymphocytes [#/volume] in Bl ood by Automated countOrdered By: Bebe Ortiz on 07-05-2023 Lymphocytes (Bld) [#/Vol] 1.5 10*3/uL Normal 1.00-4.8 [facility] Comment on above: Performed By: #### C MP, CK, HS TROP, CBC #### [facility] [address] Lymphocytes/100 leukocytes i n Blood by Automated countOrdered By: Bebe Ortiz on 07-05-2023 Lymphocytes/100 WBC (Bld) 19.6 % Normal . [facility] Comment on above: Performed By: #### C MP, CK, HS TROP, CBC #### [facility] [address] MCH [Entitic mass] by Automa kenyatta countOrdered By: Bebe Ortiz on 07-05-2023 MCH (RBC) [Entitic mass] 28.6 pg Normal 24.7-34.3 [facility] Comment on above: Performed By: #### C MP, CK, HS TROP, CBC #### [facility] [address] [place] [address] MCHC Auto (RBC) [Mass/Vol]Or dered By: Bebe Ortiz on 07-05-2023 MCHC (RBC) [Mass/Vol] 32.5 g/dL 32.0-35.[address] [facility] MCV [Entitic volume] by Auto mated countOrdered By: Bebe Ortiz on 07-05-2023 MCV (RBC) [Entitic vol] 88.0 fL Normal 80-100 [facility] Comment on above: Performed By: #### C MP, CK, HS TROP, CBC #### [facility] [address] [place] [address] [place] Monocyte distribution width [Entitic volume] in Blood by AutomatedOrdered By: Bebe Ortiz on 07-05-2023 Monocyte distribution width Auto (Bld) [Entitic vol] 17.07 % 0.00-20.00 [facility] Neutrophils [#/volume] in Bl ood by Automated countOrdered By: Bebe Ortiz on 07-05-2023 Neutrophils (Bld) [#/Vol] 5.1 10*3/uL Normal 1.8-7.7 [facility] Comment on above: Performed By: #### C MP, CK, HS TROP, CBC #### [facility] [address] [place] [address] Nitrite Test strip Ql (U)Ord ered By: Bebe Ortiz on 07-05-2023 Nitrite Ql (U) Negative Negative [facility] No Panel InformationOrdered By: Bebe Ortiz on 07-05-2023 Estimated GFR (CKD-EPI) 50.736 mL/Min [facility] Creatinine Clearance (Chem 34.02 [facility] Nucleated erythrocytes [Pres ence] in Blood by Automated countOrdered By: Bebe Ortiz on 07-05-2023 Nucleated RBC Auto Ql (Bld) 0.1 /100{WBC} 0-0.5 [facility] Opiates [Presence] in Urine by Screen methodOrdered By: Bebe Ortiz on 07-05-2023 Opiates Screen Ql (U) Positive Negative [facility] Partial Thromboplastin Timeo n 07-05-2023 aPTT Coag (Bld) [Time] 31.4 s Normal 25.1-36.5 [facility] Comment on above: Result Comment: A he matocrit value greater than 55% may lead to inaccurate results in coagulation testing. Patients having hematocrit values >55% require a special collection tube for coagulation studies. Please contact the laboratory at [phone] for redraw instructions. PERFORMED BY: [place] [address] PATHOLOGIST SURFACE GRINDER CORIE SILVA M.D. Performed By: #### C MP, CK, HS TROP, CBC #### [facility] [address] [place] [address] Phencyclidine Screen Ql (U)O rdered By: Bebe Ortiz on 07-05-2023 Phencyclidine Ql (U) Negative Negative [facility] Platelet mean volume [Entiti c volume] in Blood by Automated countOrdered By: Bebe Ortiz on 07-05-2023 Platelet mean volume (Bld) [Entitic vol] 7.6 fL Normal 6.3-10.7 [facility] Comment on above: Performed By: #### C MP, CK, HS TROP, CBC #### [facility] [address] Platelets [#/volume] in Bloo d by Automated countOrdered By: Bebe Ortiz on 07-05-2023 Platelets (Bld) [#/Vol] 259 10*3/uL Normal 150-450 [facility] Comment on above: Performed By: #### C MP, CK, HS TROP, CBC #### [facility] [address] Potassium [Moles/volume] in Serum or PlasmaOrdered By: Bebe Ortiz on 07-05-2023 Potassium [Moles/Vol] 3.8 mmol/L Normal 3.5-5.[address] [facility] Comment on above: Performed By: #### C MP, CK, HS TROP, CBC #### [address] Protein Auto test strip (U) [Mass/Vol]Ordered By: Bebe Ortiz on 07-05-2023 Protein (U) [Mass/Vol] Negative Negative [facility] Protein [Mass/volume] in Ser um or PlasmaOrdered By: Bebe Ortiz on 07-05-2023 Protein [Mass/Vol] 7.2 g/dL Normal 6.4-8.9 [facility] Comment on above: Performed By: #### C MP, CK, HS TROP, CBC #### [facility] [address] [place] [address] Prothrombin time (PT)Ordered By: Bebe Ortiz on 07-05-2023 PT Coag (PPP) [Time] 11.3 s Normal 9.0-12.9 [facility] Comment on above: A hematocrit value g reater than 55% may lead to inaccurate results in coagulation testing. Patients having hematocrit values >55% require a special collection tube for coagulation studies. Please contact the laboratory at [phone] for redraw instructions. Result Comment: A he matocrit value greater than 55% may lead to inaccurate results in coagulation testing. Patients having hematocrit values >55% require a special collection tube for coagulation studies. Please contact the laboratory at [phone] for redraw instructions. Performed By: #### C MP, CK, HS TROP, CBC #### [address] Serum globulin measurement b y calculation (mass/volume)Ordered By: Bebe Ortiz on 07-05-2023 Globulin (S) [Mass/Vol] 2.8 g/dL [facility] Comment on above: Performed By: #### C MP, CK, HS TROP, CBC #### [address] Serum or plasma albumin/glob ulin mass ratioOrdered By: Bebe Ortiz on 07-05-2023 Albumin/Globulin [Mass ratio] 1.6 {ratio} [facility] Comment on above: Performed By: #### C MP, CK, HS TROP, CBC #### [address] Serum or plasma anion gap de terminationOrdered By: Bebe Ortiz on 07-05-2023 Anion gap [Moles/Vol] 9.6 mmol/L Normal 6.0-15.[address] [facility] Comment on above: Performed By: #### C MP, CK, HS TROP, CBC #### [address] Sodium [Moles/volume] in Ser um or PlasmaOrdered By: Bebe Ortiz on 07-05-2023 Sodium [Moles/Vol] 136 mmol/L Normal 136-145 [facility] Comment on above: Performed By: #### C MP, CK, HS TROP, CBC #### [address] Specific gravity Auto test s trip (U) [Rel density]Ordered By: Bebe Ortiz on 07-05-2023 Specific gravity (U) [Rel density] 1.009 1.001-1.03 0 [facility] Squamous epithelial cells de tection in urine sediment by light microscopyOrdered By: Bebe Ortiz on 07-05-2023 Epithelial cells.squamous LM Ql (Urine sed) 10-19 [HPF] 0-2 [facility] Troponin I High Sensitivityo n 07-05-2023 Troponin I High Sensitivity 2.4 pg/mL Normal 0.0-15.0 [facility] [facility] Comment on above: Result Comment: PERF ORMED BY: [place] [address] PATHOLOGIST SURFACE GRINDER CORIE SILVA M.D. Performed By: #### C MP, CK, HS TROP, CBC #### [facility] [address] [place] [address] Troponin I.cardiac [Mass/vol ume] in Serum or Plasma by Detection limit <= 0.01 ng/Ordered By: Bebe Ortiz on 07-05-2023 Troponin I.cardiac DL <= 0.01 ng/mL [Mass/Vol] 2.4 pg/mL 0.0-15.0 [facility] Urea nitrogen [Mass/volume] in Serum or PlasmaOrdered By: Bebe Ortiz on 07-05-2023 Urea nitrogen [Mass/Vol] 14 mg/dL Normal 7-25 [facility] Comment on above: Performed By: #### C MP, CK, HS TROP, CBC #### [facility] [address] [place] [address] Urine Cultureon 07-05-2023 Bacteria identified Cx Nom (U) 75,000 colonies/ml mixed bacterial skin contaminants 2 Days PERFORMED BY: [place] [address] PATHOLOGIST SURFACE GRINDER CORIE SILVA M.D. Normal [facility] Comment on above: Performed By: #### C UU, URDS, ADDONUAPLUS #### [facility] [address] [place] [address] Urine bacteria detection by automated methodOrdered By: Bebe Ortiz on 07-05-2023 Bacteria Auto Ql (U) 2+ None Seen [facility] Urine clarity by refractomet ry automatedOrdered By: Bebe Ortiz on 07-05-2023 Clarity Refractometry automated (U) Turbid Clear [facility] Urine culture routineOrdered By: Bebe Ortiz on 07-05-2023 Bacteria identified Cx Nom (U) 2 Days [facility] Urine glucose measurement by automated test strip (mass/volume)Ordered By: Bebe Ortiz on 07-05-2023 Glucose Auto test strip (U) [Mass/Vol] Normal mg/dL Normal [facility] Urine hemoglobin detection b y automated test stripOrdered By: Bebe Ortiz on 07-05-2023 Hemoglobin Auto test strip Ql (U) Trace Negative [facility] Urine leukocyte esterase det ection by automated test stripOrdered By: Bebe Ortiz on 07-05-2023 Leukocyte esterase Auto test strip Ql (U) 4+ Negative [facility] Urine pH measurement by auto mated test stripOrdered By: Bebe Ortiz on 07-05-2023 pH (U) 5.5 [pH] Normal 5.0-9.0 [facility] Comment on above: Order Comment: Name Collection Type:: Straight Catheter Performed By: #### C UU, URDS, ADDONUAPLUS #### [address] Urine sediment renal epithel ial cell count by microscopy (number/high power field)Ordered By: Bebe Ortiz on 07-05-2023 Epithelial cells.renal LM.HPF (Urine sed) [#/Area] 0-1 [HPF] 0-1 [facility] Urobilinogen Auto test strip (U) [Mass/Vol]Ordered By: Bebe Ortiz on 07-05-2023 Urobilinogen (U) [Mass/Vol] Normal mg/dL Normal [facility] XR chest 2V*on 07-05-2023 XR chest 2V* [facility] [address] [place] [address] XRay Report Signed Patient: Maegan Dye MR#: [id number] : 1950 Acct:[id number] Age/Sex: 73 / F ADM Date: 07/05/23 Loc: ER Room: Type: [facility] ER Attending Dr: Copies to: Bebe Ortiz [...] Ángel Littlejohn M.D.07/05/2023 5:18 PM Dictation Location: [place] [address] Transcribed By: [facility] 07/05/231717 Dictated By: Ángel Littlejohn II, MD 07/05/231715 Signed By: 07/05/231717 Normal [facility] CHEMISTRYOrdered By: SYSTEM SYSTEM [...] 06-19-2023 Albumin [Mass/Vol] 4.2 g/dL Normal 3.3-5.0 [facility] Comment on above: Performed By: #### 2 [id number], [id number] ####[facility] [address] [place] [address] Albumin/Globulin [Mass ratio] 1.4 {ratio} Normal 1.1-2.2 [facility] Comment on above: Performed By: #### 2 790034, [id number] ####[facility] [address] [place] [address] Alk Phos 100 Int._Unit/L High 21-98 [facility] Comment on above: Performed By: #### 2 961710, [id number] ####[facility] [address] [place] [address] ALT 10 Int._Unit/L Normal 6-46 [facility] Comment on above: Performed By: #### 2 003030, [id number] ####[facility] [address] [place] [address] Anion gap [Moles/Vol] 13 mmol/L Normal 6-16 [facility] Comment on above: Performed By: #### 2 346161, [id number] ####[facility] [address] [place] [address] AST 21 Int._Unit/L Normal 5-43 [facility] Comment on above: Performed By: #### 2 898485, 08447438 ####[facility] [address] [place] [address] Bili Total 0.8 mg/dL Normal 0.0-1.1 [facility] Comment on above: Performed By: #### 2 412323, 39093736 ####[facility] [address] [place] [address] BUN/Creat Ratio 13 No Units Normal 10-20 [facility] Comment on above: Performed By: #### 2 552865, [id number] ####[facility] [address] [place] [address] Calcium [Mass/Vol] 9.5 mg/dL Normal 8.9-11.1 [facility] Comment on above: Performed By: #### 2 129313, [id number] ####[facility] [address] [place] [address] Chloride [Moles/Vol] 100 mmol/L Low 101-[address] [facility] Comment on above: Performed By: #### 2 609949, [id number] ####[facility] [address] [place] [address] CO2 [Moles/Vol] 28 mmol/L Normal 21-31 [facility] Comment on above: Performed By: #### 2 201290, 23629528 ####[facility] [address] [place] [address] Creatinine [Mass/Vol] 1.1 mg/dL Normal 0.5-1.3 [facility] Comment on above: Performed By: #### 2 561035, [id number] ####[facility] [address] [facility] [place] [address] Globulin (S) [Mass/Vol] 2.9 g/dL Normal 1.4-4.0 [facility] Comment on above: Performed By: #### 2 172853, 13068522 ####[facility] [address] [facility] [place] [address] Glucose [Mass/Vol] 95 mg/dL Normal 55-199 [facility] Comment on above: Performed By: #### 2 107907, [id number] ####[facility] [address] [facility] [place] [address] Potassium [Moles/Vol] 3.8 mmol/L Normal 3.5-5.3 [facility] Comment on above: Performed By: #### 2 911909, 73041578 ####[facility] [address] [place] [address], [place] [address] Protein [Mass/Vol] 7.1 g/dL Normal 6.0-7.8 [facility] Comment on above: Performed By: #### 2 374144, 28762743 ####[facility] [address] [facility] [place] [address] Sodium [Moles/Vol] 137 mmol/L Normal 135-145 [facility] Comment on above: Performed By: #### 2 642371, 40027480 ####[facility] [address] [place] [address] Urea nitrogen [Mass/Vol] 14 mg/dL Normal 5-21 [facility] Comment on above: Performed By: #### 2 709129, 40423515 ####[facility] [address] [facility] [place] [address] Physician Orderon 06-19-2023 Physician Order [id number]#1.00TIFF Normal [facility] eGFRon 06-19-2023 eGFR 52 mL/min/1.73 m2 Low >=59 [facility] Comment on above: Order Comment: Order added by Discern Expert. Performed By: #### 2 880786, [id number] ####[facility] [address] [place] [address] ED Note-Physicianon 05-27-19 ED Note-Physician Normal [facility] Comment on above: Result Comment: Elec tronically Signed By: Ana Layton PA-C\.br\Date and Time Signed: 05/26/23 23:36 EST\.br\Electronically Co-Signed By: Mati Taylor DO\.br\Date and Time Co-Signed: 05/27/23 05:29 EST Consent for Treatmenton Consent for Treatment [id number] Normal [facility] Discharge Instructionson Discharge Instructions [id number]#1.00TIFF Normal [facility] ED Clinical Summaryon 2023 ED Clinical Summary Normal [facility] ED Patient Education Noteon 05-26-2023 ED Patient Education Note Normal [facility] ED Patient Summaryon 024 ED Patient Summary Normal [facility] UA With Cult Reflexon 2023 Bacteria LM Ql (Urine sed) TRACE Normal Trace [facility] Comment on above: Performed By: #### 1 [id number] ####[facility] [address] [place] [address] Bilirubin Ql (U) Negative Normal Negative [facility] Comment on above: Performed By: #### 1 0922693 ####[facility] [address] [place] [address] Clarity (U) CLEAR Normal Clear [facility] Comment on above: Performed By: #### 1 2776499 ####[facility] [address] [place] [address] Color (U) YELLOW Normal Yellow [facility] Comment on above: Performed By: #### 1 6937454 ####[facility] [address] [place] [address] Crystals LM Ql (Urine sed) Present Normal [facility] Comment on above: Performed By: #### 1 6896954 ####[address] [address] Epithelial cells.squamous LM.HPF (Urine sed) [#/Area] 0-2 Normal 0-2 [facility] Comment on above: Performed By: #### 1 2052986 ####[address] [address] Glucose Test strip (U) [Mass/Vol] Negative Normal Negative [facility] Comment on above: Performed By: #### 1 2240803 ####[address] [address] Hemoglobin Ql (U) TRACE Abnormal Negative [facility] Comment on above: Performed By: #### 1 3107988 ####[address] [address] Ketones (U) [Mass/Vol] Negative Normal Negative [facility] Comment on above: Performed By: #### 1 3419808 ####[address] [address] Wickes.plasma/Wickes .RBC (Bld) [Mass ratio] 0-3 Normal 0-3 [facility] Comment on above: Performed By: #### 1 0559017 ####[address] [address] Mucus Ql (Urine sed) TRACE Normal [facility] Comment on above: Performed By: #### 1 6029269 ####[address] [address] Nitrite Ql (U) Negative Normal Negative [facility] Comment on above: Performed By: #### 1 0290664 ####[address] [address] pH (U) 6.0 [pH] Invalid Interpretation Code 5.0-9.0 [facility] Comment on above: Performed By: #### 1 8993776 ####[facility] [address] [place] [address] Protein (U) [Mass/Vol] Negative Normal Negative [facility] Comment on above: Performed By: #### 1 5127844 ####[facility] [address] [place] [address] Specific gravity (U) [Rel density] 1.025 Invalid Interpretation Code 1.005-1.03 0 [facility] Comment on above: Performed By: #### 1 1853831 ####[address] [address] Type of Urine collection method Clean Catch Normal [facility] Comment on above: Performed By: #### 1 8767390 ####[address] [address] Urobilinogen Qn (U) 0.2 {Rolan'U}/dL Normal 0.0-1.0 [facility] Comment on above: Performed By: #### 1 0477950 ####[facility] [address] [place] [address] WBC Auto Ql (U) Negative Normal Negative [facility] Comment on above: Performed By: #### 1 7680327 ####[facility] [address] [place] [address] WBC LM.HPF (Urine sed) [#/Area] 0-5 Normal 0-5 [facility] Comment on above: Performed By: #### 1 9295720 ####[address] [address] URINALYSISOrdered By: Chelsy Lujan on 05-26-2023 Bacteria LM Ql (Urine sed) Trace /HPF Normal Trace/HPF [facility] UA Auto SS Bilirubin Ql (U) Negative (05/26/23 10:06 PM) Normal Negative [facility] UA Auto SS Clarity (U) Clear (05/26/23 10:06 PM) Normal Clear [facility] UA Auto SS Color (U) Yellow (05/26/23 10:06 PM) Normal Yellow FT UA Auto SS Crystals LM Ql (Urine [...] PM) Normal Negative [facility] UA Auto SS Wickes.plasma/Wickes .RBC (Bld) [Mass ratio] 0-3 /HPF Normal [...] Desc Clean Catch (05/26/23 10:06 PM) Normal [facility] UA Auto SS Urobilinogen Qn (U) 0.3759486 {Rolan'U}/dL Normal 0.0 - 1.0 EU/dL FT UA Auto SS WBC Auto Ql (U) Negative (05/26/23 10:06 PM) Normal Negative [facility] UA Auto SS WBC LM.HPF (Urine sed) [#/Area] 0-5 /HPF Normal 0-5/HPF [facility] UA Auto SS C Urineon 05-06-2023 Bacteria identified Cx Nom (U) Normal [facility] Comment on above: Performed By: #### 2 117940, 45837036 ####[facility] [address] [place] [address] Consent for Treatmenton 04-25 Consent for Treatment [id number]#1.00TIFF Normal [facility] Discharge Instructionson Discharge Instructions [id number]#1.00TIFF Normal [facility] ED Clinical Summaryon 2022 ED [facility] ED Note-Physicianon 05-04-20 ED Note-Physician Normal [facility] Comment on above: Result Comment: Elec tronically Signed By: Malick Ho PA-C\.br\Date and Time Signed: 05/04/23 13:50 EST\.br\Electronically Co-Signed By: Johny Willson DO\.br\Date and Time Co-Signed: 05/04/23 14:07 EST ED Patient Education Noteon 05-04-2023 ED Patient Education Note Normal [facility] ED Patient Summaryon 023 ED Patient Summary Normal [facility] UA With Cult Reflexon 2022 Bacteria LM Ql (Urine sed) TRACE Normal Trace [facility] Comment on above: Performed By: #### 2 786433, [id number] ####[facility] [address] [place] [address] Bilirubin Ql (U) Negative Normal Negative [facility] Comment on above: Performed By: #### 2 189715, 60616402 ####[facility] [address] [place] [address] Clarity (U) CLEAR Normal Clear [facility] Comment on above: Performed By: #### 2 232060, 42204161 ####[facility] [address] [place] [address] Color (U) YELLOW Normal Yellow [facility] Comment on above: Performed By: #### 2 276741, 85065739 ####[facility] [address] [place] [address] Epithelial cells.squamous LM.HPF (Urine sed) [#/Area] 5-8 Normal 0-2 [facility] Comment on above: Performed By: #### 2 907083, 42502797 ####[facility] [address] [place] [address] Glucose Test strip (U) [Mass/Vol] Negative Normal Negative [facility] Comment on above: Performed By: #### 2 446137, 61303349 ####[facility] [address] [place] [address] Hemoglobin Ql (U) Negative Normal Negative [facility] Comment on above: Performed By: #### 2 290008, 05276340 ####[facility] [address] [place] [address] Ketones (U) [Mass/Vol] Negative Normal Negative [facility] Comment on above: Performed By: #### 2 261693, 71932866 ####[facility] [address] [place] [address] Wickes.plasma/Wickes .RBC (Bld) [Mass ratio] 0-3 Normal 0-3 [facility] Comment on above: Performed By: #### 2 805546, 20017412 ####[facility] [address] [place] [address] Mucus Ql (Urine sed) TRACE Normal [facility] Comment on above: Performed By: #### 2 820547, 80297904 ####[facility] [address] [place] [address] Nitrite Ql (U) Negative Normal Negative [facility] Comment on above: Performed By: #### 2 935209, 57693700 ####[facility] [address] [place] [address] pH (U) 6.0 [pH] Invalid Interpretation Code 5.0-9.0 [facility] Comment on above: Performed By: #### 2 548123, 23869893 ####[facility] [address] [place] [address] Protein (U) [Mass/Vol] Negative Normal Negative [facility] Comment on above: Performed By: #### 2 154428, 26362129 ####[facility] [address] [place] [address] Specific gravity (U) [Rel density] 1.015 Invalid Interpretation Code 1.005-1.03 0 [facility] Comment on above: Performed By: #### 2 089059, 10486670 ####[facility] [address] [place] [address] Type of Urine collection method Clean Catch Normal [facility] Comment on above: Performed By: #### 2 772963, 04557012 ####[address] [address] Urobilinogen Qn (U) 1.0 {Rolan'U}/dL Normal 0.0-1.0 [facility] Comment on above: Performed By: #### 2 119424, 72192501 ####[place] [address] WBC Auto Ql (U) 2+ Abnormal Negative [facility] Comment on above: Performed By: #### 2 433233, 16198477 ####[facility] [address] [place] [address] WBC LM.HPF (Urine sed) [#/Area] 0-5 Normal 0-5 [facility] Comment on above: Performed By: #### 2 366821, 96531821 ####[facility] [address] [place], [place] [address] CHEMISTRYOrdered By: SYSTEM SYSTEM on 03-14-2023 Albumin [Mass/Vol] 3.9 g/dL Normal 3.3 - 5.0 gm/dL [facility] Albumin/Globulin [Mass ratio] 1.2 {ratio} Normal 1.1 - 2.2 [facility] ALP [Catalytic activity/Vol] 89 [iU]/d Normal 21 - 98 Int._Unit/ L [facility] ALT No additional P-5'-P [Catalytic activity/Vol] 15 [iU]/d Normal 6 - 46 Int._Unit/ L [facility] Anion gap [Moles/Vol] 8 mmol/L Normal [...] 1.3 mg/dL Normal 0.5 - 1.3 mg/dL [facility] GFR/1.73 sq M.predicted among non-blacks MDRD (S/P/Bld) [Vol rate/Area] 43 mL/min/1.73 m2 Low >=59mL/min /1.73 m2 [facility] Chem S Comment on above: Interpretive Data: C hronic kidney disease could be indicated at eGFR's of less than 60 mL/min/1.73m2. Kidney failure is indicated at less than 15 mL/min/1.73m2. Globulin (S) [Mass/Vol] 3.3 g/dL Normal 1.4 - 4.0 gm/dL [facility] Glucose [Mass/Vol] 119 mg/dL Normal 55 - 199 mg/dL [facility] Comment on above: Interpretive Data: I f this glucose result represents a fasting glucose, interpretation should refer to the following reference range: 55-99 mg/dL Potassium [Moles/Vol] 4.3 mmol/L Normal 3.5 - 5.3 mmol/L [facility] Protein [Mass/Vol] 7.2 g/dL Normal 6.0 - 7.8 gm/dL [facility] Sodium [Moles/Vol] 130 mmol/L Low 135 - 145 mmol/L [facility] Urea nitrogen [Mass/Vol] 19 mg/dL Normal 5 - 21 mg/dL [facility] Urea nitrogen/Creatinine [Mass ratio] 15 mg/mg Normal - [facility] CMPon 03-14-2023 Albumin [Mass/Vol] 3.9 g/dL Normal 3.3-5.0 [facility] Comment on above: Performed By: #### 1 1197309, 1751065 ####[facility] [address] [place] [address] Albumin/Globulin (S) [Mass conc ratio] 1.2 Normal 1.1-2.2 [facility] Comment on above: Performed By: #### 1 0066970, 3946742 ####[address] [address] ALP [Catalytic activity/Vol] 89 Int._Unit/L Normal 21-98 [facility] Comment on above: Performed By: #### 1 8131526, 9056993 ####[place] [address] [place] [address] ALT No additional P-5'-P [Catalytic activity/Vol] 15 Int._Unit/L Normal 6-46 [facility] Comment on above: Performed By: #### 1 0582554, 0342937 ####[address] [address] Anion gap [Moles/Vol] 8 mmol/L Normal 6-16 [facility] Comment on above: Performed By: #### 1 7886721, 7965459 ####[facility] [address] [place] [address] AST [Catalytic activity/Vol] 25 Int._Unit/L Normal 5-43 [facility] Comment on above: Performed By: #### 1 6432732, 9402639 ####[facility] [address] [place] [address] Bilirubin [Mass/Vol] 0.6 mg/dL Normal 0.0-1.1 [facility] Comment on above: Performed By: #### 1 8935785, 9416884 ####[facility] [address] [place] [address] Calcium [Mass/Vol] 9.1 mg/dL Normal 8.9-11.1 [facility] Comment on above: Performed By: #### 1 5401009, 2026428 ####[facility] [address] [place] [address] Chloride [Moles/Vol] 96 mmol/L Low 101-[address] [facility] Comment on above: Performed By: #### 1 3479836, 7381201 ####[facility] [address] [place] [address] CO2 [Moles/Vol] 30 mmol/L Normal 21-31 [facility] Comment on above: Performed By: #### 1 1357711, 0883709 ####[facility] [address] [place] [address] Creatinine [Mass/Vol] 1.3 mg/dL Normal 0.5-1.3 [facility] Comment on above: Performed By: #### 1 7037114, 7019823 ####[address] [address] Globulin (S) [Mass/Vol] 3.3 g/dL Normal 1.4-4.0 [facility] Comment on above: Performed By: #### 1 8762573, 3415768 ####[facility] [address] [place] [address] Glucose [Mass/Vol] 119 mg/dL Normal 55-199 [facility] Comment on above: Result Comment: If t his glucose result represents a fasting glucose, interpretation should refer to the following reference range: 55-99 mg/dL Performed By: #### 1 0384538, 5178165 ####[facility] [address] [place] [address] Potassium [Moles/Vol] 4.3 mmol/L Normal 3.5-5.3 [facility] Comment on above: Performed By: #### 1 1901202, 0987219 ####[facility] [address] [place] [address] Protein [Mass/Vol] 7.2 g/dL Normal 6.0-7.8 [facility] Comment on above: Performed By: #### 1 4438959, 4589372 ####[facility] [address] [place] [address] Sodium [Moles/Vol] 130 mmol/L Low 135-145 [facility] Comment on above: Performed By: #### 1 4855416, 0807416 ####[facility] [address] [place] [address] Urea nitrogen [Mass/Vol] 19 mg/dL Normal 5-21 [facility] Comment on above: Performed By: #### 1 5074757, 2138635 ####[facility] [address] [place], [place] [address] Urea nitrogen/Creatinine [Mass ratio] 15 No Units Normal 03-14 [facility] Comment on above: Performed By: #### 1 [id number], [id number] ####[facility] [address] [place] [address] Consent for Treatmenton 02-24 Consent for Treatment [id number] Normal [facility] Physician Orderon 03-14-2023 Physician Order [id number] Normal [facility] eGFRon 03-14-2023 GFR/1.73 sq M.predicted among non-blacks MDRD (S/P/Bld) [Vol rate/Area] 43 mL/min/1.73 m2 Low >=59 [facility] Comment on above: Order Comment: Order added by Discern Expert. Result Comment: Recreation Technician jadyn kidney disease could be indicated at eGFR's of less than 60 mL/min/1.73m2. Kidney failure is indicated at less than 15 mL/min/1.73m2. Performed By: #### 1 [id number], [id number] ####[facility] [address] [place] [address] Basic Metabolic Profon 02-07 Anion gap [Moles/Vol] 5 mmol/L Low 9-17 [facility] Comment on above: Performed By: #### B #### [facility] [address] [place], [place] [id number] Manager Bank: Jose Mars MD BUN/CRE Ratio 18 Normal 9-20 [facility] Comment on above: Performed By: #### B MP #### [facility] [address] [place], [place] [id number] Manager Bank: Jose Mars MD Calcium [Mass/Vol] 9.4 mg/dL Normal 8.6-10.4 [facility] Comment on above: Performed By: #### B MP #### [facility] [address] [place], [place] [id number] Manager Bank: Jose Mars MD Chloride [Moles/Vol] 93 mmol/L Low 98-107 [facility] Comment on above: Performed By: #### B MP #### [facility] [address] [place] [address] Manager Bank: Jose Mars MD CO2 [Moles/Vol] 30 mmol/L Normal 20-31 [facility] Comment on above: Performed By: #### B MP #### [facility] [address] [place] [address] [place] [place], [place] [id number] Manager Bank: Jose Mars MD Creatinine [Mass/Vol] 1.2 mg/dL High 0.5-0.9 [facility] Comment on above: Performed By: #### B MP #### [facility] [address] [place], [place] [id number] Manager Bank: Jose Mars MD GFR/1.73 sq M.predicted among non-blacks MDRD (S/P/Bld) [Vol rate/Area] 47 mL/min/{1.73_m2} Low >60 [facility] Comment on above: Result Comment: These results [...] secretion. Performed By: #### B MP #### [facility] [address] [place] [address] Manager Bank: Jose Mars MD Glucose [Mass/Vol] 109 mg/dL High 70-99 [facility] Comment on above: Performed By: #### B MP #### [facility] [address] [place] [address] Manager Bank: Jose Mars MD Potassium [Moles/Vol] 4.3 mmol/L Normal 3.7-5.3 [facility] Comment on above: Performed By: #### B MP #### [facility] [address] [place] [address] Manager Bank: Jose Mars MD Sodium [Moles/Vol] 128 mmol/L Low 135-144 [facility] Comment on above: Performed By: #### B MP #### [facility] [address] [place] [address] Manager Bank: Jose Mars MD Urea nitrogen [Mass/Vol] 22 mg/dL Normal 8-23 [facility] Comment on above: Performed By: #### B MP #### [facility] [address] [place] [address] [place] [address] Manager Bank: Jose Mars MD Basic Metabolic Panelon 01-24 Anion gap [Moles/Vol] 7 mmol/L Low 9 - 17 mmol/L [facility] Calcium [Mass/Vol] 9.8 mg/dL 8.6 - 10. 4 mg/dL [facility] Chloride [Moles/Vol] 98 mmol/L 98 - 10 7 mmol/L [facility] CO2 [Moles/Vol] 32 mmol/L High 20 - 31 mmol/L [facility] Creatinine [Mass/Vol] 1.0 mg/dL High 0.5 - 0.9 mg/dL [facility] GFR/1.73 sq M.predicted MDRD (S/P/Bld) [Vol rate/Area] 59 mL/min/{1.73_m2} Low - PINF [facility] Comment on above: These results are not [...] 102 mg/dL High 70 - 99 mg/dL [facility] Interpretation and review of laboratory results Abnormal [facility] Potassium [Moles/Vol] 4.1 mmol/L 3.7 - 5.3 mmol/L [facility] Sodium [Moles/Vol] 137 mmol/L 135 - 144 mmol/L [facility] Urea nitrogen [Mass/Vol] 13 mg/dL 8 - 23 mg/dL [facility] Urea nitrogen/Creatinine [Mass ratio] 13 mg/mg - [facility] Basic Metabolic Profon 02-03 Anion gap [Moles/Vol] 7 mmol/L Low - [facility] Comment on above: Performed By: #### B MP #### [facility] [address] [place] [address] Manager Bank: Jose Mars MD BUN/CRE Ratio 13 Normal - [facility] Comment on above: Performed By: #### B MP #### [facility] [address] [place] [address] Manager Bank: Jose Mars MD Calcium [Mass/Vol] 9.8 mg/dL Normal 8.6-10.4 [facility] Comment on above: Performed By: #### B MP #### [facility] [address] [place] [address] Manager Bank: Jose Mars MD Chloride [Moles/Vol] 98 mmol/L Normal 98-107 [facility] Comment on above: Performed By: #### B MP #### [facility] [address] [place] [address] Manager Bank: Jose Mars MD CO2 [Moles/Vol] 32 mmol/L High 20-31 [facility] Comment on above: Performed By: #### B MP #### [facility] [address] [place] [address] Manager Bank: Jose Mars MD Creatinine [Mass/Vol] 1.0 mg/dL High 0.5-0.9 [facility] Comment on above: Performed By: #### B MP #### [facility] [address] [place] [address] Manager Bank: Jose Mars MD GFR/1.73 sq M.predicted among non-blacks MDRD (S/P/Bld) [Vol rate/Area] 59 mL/min/{1.73_m2} Low >60 [facility] Comment on above: Result Comment: These results [...] secretion. Performed By: #### B MP #### [facility] [address] [place] [address] Manager Bank: Jose Mars MD Glucose [Mass/Vol] 102 mg/dL High 70-99 [facility] Comment on above: Performed By: #### B MP #### [facility] [address] [place] [address] Manager Bank: Jose Mars MD Potassium [Moles/Vol] 4.1 mmol/L Normal 3.7-5.3 [facility] Comment on above: Performed By: #### B MP #### [facility] [address] [place], [place] [address]83 Manager Bank: Jose Mars MD Sodium [Moles/Vol] 137 mmol/L Normal 135-144 [facility] Comment on above: Performed By: #### B MP #### [facility] [address] [place] [address] Manager Bank: Jose Mars MD Urea nitrogen [Mass/Vol] 13 mg/dL Normal 8-23 [facility] Comment on above: Performed By: #### B MP #### [facility] [address] [place] [address] Manager Bank: Jose Mars MD Outside Recordson 02-02-2023 Outside Records [id number]:127 Normal [facility] Transfer Documentson 023 Transfer Documents [id number]:127 Normal [facility] Acetamnphn Lvlon 02-01-2023 Acetaminophen [Mass/Vol] ug/mL Low 15-30 [facility] Comment on above: Order Comment: pt in [id number] 02/01/2023 15:26:12 EDT Performed By: #### 1 [id number], 0144967, 3274729, 2917728, 5329994, 3527463 ####[facility] [address] [facility] [place] [address] Auto Diffon 02-01-2023 Basophils/100 WBC (Bld) 3.1 % High 0.0-2.0 [facility] Comment on above: Order Comment: Order Added by Discern Expert. Performed By: #### 1 [id number], 3207900, 4666992, 3809120, 2304726, 1762081 ####[facility] [address] [place] [address] Basophils/Leukocytes Auto (Bld) [Pure # fraction] 0.2 E9/L Normal 0.0-0.2 [facility] Comment on above: Order Comment: Order Added by Discern Expert. Performed By: #### 1 [id number], 8457425, 7957803, 5128093, 2537942, 9089307 ####[address] [place] [address] Eosinophils/100 WBC (Bld) 2.3 % Normal 0.0-8.0 [facility] Comment on above: Order Comment: Order Added by Tip Expert. Performed By: #### 1 1646410, 9767515, 3425884, 8809746, 8594286, 0551650 ####[address] [address] Eosinophils/Leukocytes Auto (Bld) [Pure # fraction] 0.2 E9/L Normal 0.0-0.5 [facility] Comment on above: Order Comment: Order Added by Tip Expert. Performed By: #### 1 4915128, 3582135, 0155609, 9132777, 5166751, 1310123 ####[address] [address] Lymphocytes/100 WBC (Bld) 26.7 % Normal 14.0-50.0 [facility] Comment on above: Order Comment: Order Added by Tip Expert. Performed By: #### 1 3537085, 2480170, 7296051, 5708715, 0179082, 3536633 ####[address] [address] Lymphocytes/Leukocytes Auto (Bld) [Pure # fraction] 1.9 E9/L Normal 1.0-4.0 [facility] Comment on above: Order Comment: Order Added by Tip Expert. Performed By: #### 1 4898419, 8174498, 9750486, 1183678, 1772929, 0135182 ####[address] [address] Monocytes/100 WBC (Bld) 8.7 % Normal 4.0-14.0 [facility] Comment on above: Order Comment: Order Added by Discern Expert. Performed By: #### 1 7583681, 3102519, 2161830, 6116696, 3809645, 6505560 ####[facility] [address] [place] [address] Monocytes/Leukocytes Auto (Bld) [Pure # fraction] 0.6 E9/L Normal 0.2-1.0 [facility] Comment on above: Order Comment: Order Added by Discern Expert. Performed By: #### 1 5604496, 8948514, 5392143, 4320030, 6900806, 4456729 ####[address] [place] [address] Neutrophils/100 WBC (Bld) 59.2 % Normal 36.0-75.0 [facility] Comment on above: Order Comment: Order Added by Discern Expert. Performed By: #### 1 0237059, 1086966, 8624204, 6933960, 4868197, 9929916 ####[facility] [address] [place] [address] Neutrophils/Leukocytes Auto (Bld) [Pure # fraction] 4.3 E9/L Normal 2.0-7.5 [facility] Comment on above: Order Comment: Order Added by Discern Expert. Performed By: #### 1 2004134, 0805001, 8163499, 4859666, 4528532, 8429623 ####[address] [place] [address] CBC w/ Auto Diffon Erythrocyte distribution width (RBC) [Ratio] 13.4 % Normal 10.9-14.2 [facility] Comment on above: Order Comment: pt in [place] [address] 02/01/2023 15:26:12 EDT Performed By: #### 1 [id number], 8779404, 8467975, 5170806, 9207700, 6660832 ####[address] [place] [address] Hematocrit (Bld) [Volume fraction] 44.1 % Normal 34.0-46.0 [facility] Comment on above: Order Comment: pt in [place] [address] 02/01/2023 15:26:12 EDT Performed By: #### 1 7062721, 5270123, 5237137, 8093111, 3408521, 5017795 ####[facility] [address] [place] [address] Hemoglobin (Bld) [Mass/Vol] 14.4 g/dL Normal 12.0-16.0 [facility] Comment on above: Order Comment: pt in [place] [address] 02/01/2023 15:26:12 EDT Performed By: #### 1 7154623, 2932252, 9328225, 4715760, 1201806, 8404519 ####[facility] [address] [place] [address] MCH (RBC) [Entitic mass] 28.1 pg Normal 27.0-34.0 [facility] Comment on above: Order Comment: pt in [place] [address] 02/01/2023 15:26:12 EDT Performed By: #### 1 8122147, 1016826, 8499572, 8786311, 1084654, 2338348 ####[facility] [address] [place] [address] MCHC (RBC) [Mass/Vol] 32.8 g/dL Normal 31.4-36.0 [facility] Comment on above: Order Comment: pt in [place] [address] 02/01/2023 15:26:12 EDT Performed By: #### 1 0506341, 2647580, 4797765, 4760306, 7572547, 1516046 ####[facility] [address] [place] [address] MCV (RBC) [Entitic vol] 85.7 fL Normal 80.0-100.0 [facility] Comment on above: Order Comment: pt in [place] [address] 02/01/2023 15:26:12 EDT Performed By: #### 1 4335796, 4694575, 4390784, 9149348, 0513718, 2875555 ####[facility] [address] [place] [address] Platelet mean volume (Bld) [Entitic vol] 6.9 fL Normal 6.4-10.8 [facility] Comment on above: Order Comment: pt in [place] [address] 02/01/2023 15:26:12 EDT Performed By: #### 1 9879780, 4367521, 9719307, 6428413, 0418585, 3344567 ####[facility] [address] [place] [address] Platelets (Bld) [#/Vol] 247.0 E9/L Normal 150.0-500. 0 [facility] Comment on above: Order Comment: pt in [place] [address] 02/01/2023 15:26:12 EDT Performed By: #### 1 4372821, 3026611, 9011304, 9012008, 2462494, 1402241 ####[facility] [address] [place] [address] RBC (Bld) [#/Vol] 5.1 E12/L Normal 4.3-5.9 [facility] Comment on above: Order Comment: pt in [place] [address] 02/01/2023 15:26:12 EDT Performed By: #### 1 2076207, 9709627, 7964260, 1502076, 3994005, 6811416 ####[facility] [address] [place] [address] WBC corrected for nucl RBC Auto (Bld) [#/Vol] 7.2 E9/L Normal 4.0-11.0 [facility] Comment on above: Order Comment: pt in [place] [address] 02/01/2023 15:26:12 EDT Performed By: #### 1 3481437, 4498292, 3540639, 1443513, 6361065, 4347944 ####[facility] [address] [place] [address] CHEMISTRYOrdered By: SYSTEM SYSTEM on 02-01-2023 Acetaminophen [...] 52 mL/min/1.73 m2 Low >=59mL/min /1.73 m2 FT Chem S Globulin (S) [Mass/Vol] 3.5 g/dL [...] 02-01-2023 Albumin [Mass/Vol] 4.5 g/dL Normal 3.3-5.0 [facility] Comment on above: Order Comment: pt in 02/01/2023 15:26:12 EDT Performed By: #### 1 9132786, 7663782, 7155543, 5485116, 2650572, 3317937 ####[facility] [address] [place] [address] Albumin/Globulin (S) [Mass conc ratio] 1.3 Normal 1.1-2.2 [facility] Comment on above: Order Comment: pt in [place] [address] 02/01/2023 15:26:12 EDT Performed By: #### 1 0299992, 9806088, 7036504, 9417678, 3625794, 0950991 ####[facility] [address] [place] [address] ALP [Catalytic activity/Vol] 89 Int._Unit/L Normal 21-98 [facility] Comment on above: Order Comment: pt in [place] [address] 02/01/2023 15:26:12 EDT Performed By: #### 1 7591683, 8298876, 1173390, 2996443, 2366945, 9543390 ####[facility] [address] [place] [address] ALT No additional P-5'-P [Catalytic activity/Vol] 13 Int._Unit/L Normal 6-46 [facility] Comment on above: Order Comment: pt in [place] [address] 02/01/2023 15:26:12 EDT Performed By: #### 1 1269390, 4836809, 1440135, 0196769, 5739425, 3931875 ####[facility] [address] [place] [address] AST [Catalytic activity/Vol] 23 Int._Unit/L Normal 5-43 [facility] Comment on above: Order Comment: pt in [place] [address] 02/01/2023 15:26:12 EDT Performed By: #### 1 3451205, 8279296, 5498998, 6487826, 0251872, 9606178 ####[facility] [address] [place] [address] Bilirubin [Mass/Vol] 0.5 mg/dL Normal 0.0-1.1 [facility] Comment on above: Order Comment: pt in [place] [address] 02/01/2023 15:26:12 EDT Performed By: #### 1 1936447, 1097429, 5013968, 0283364, 4768170, 2686331 ####[facility] [address] [place] [address] Creatinine [Mass/Vol] 1.1 mg/dL Normal 0.5-1.3 [facility] Comment on above: Order Comment: pt in [place] [address] 02/01/2023 15:26:12 EDT Performed By: #### 1 8070410, 1170461, 8855376, 1371659, 2425414, 7963877 ####[facility] [address] [place] [address] Globulin (S) [Mass/Vol] 3.5 g/dL Normal 1.4-4.0 [facility] Comment on above: Order Comment: pt in [place] [address] 02/01/2023 15:26:12 EDT Performed By: #### 1 7073164, 3497772, 1516597, 3584228, 0310596, 4932787 ####[facility] [address] [place] [address] Protein [Mass/Vol] 8.0 g/dL High 6.0-7.8 [facility] Comment on above: Order Comment: pt in [place] [address] 02/01/2023 15:26:12 EDT Performed By: #### 1 2510143, 8367129, 1556909, 0373477, 9294356, 8717760 ####[facility] [address] [place] [address] Urea nitrogen [Mass/Vol] 14 mg/dL Normal 5-21 [facility] Comment on above: Order Comment: pt in [place] [address] 02/01/2023 15:26:12 EDT Performed By: #### 1 0122914, 0366091, 0792282, 5518570, 2706914, 4302804 ####[facility] [address] [place] [address] Urea nitrogen/Creatinine [Mass ratio] 13 No Units Normal 10-20 [facility] Comment on above: Order Comment: pt in [id number] 02/01/2023 15:26:12 EDT Performed By: #### 1 3331417, 6802945, 0475174, 7280802, 2734757, 7962543 ####[facility] [address] [place] [address] Anion gap [Moles/Vol] 8 mmol/L Normal 6-16 [facility] Comment on above: Order Comment: pt in [place] [address] 02/01/2023 15:26:12 EDT Performed By: #### 1 9480868, 7489541, 4392752, 4541451, 8747923, 0448583 ####[facility] [address] [place] [address] Calcium [Mass/Vol] 9.3 mg/dL Normal 8.9-11.1 [facility] Comment on above: Order Comment: pt in [place] [address] 02/01/2023 15:26:12 EDT Performed By: #### 1 4271788, 0045504, 1680675, 4816573, 4284913, 4845276 ####[facility] [address] [place] [address] Chloride [Moles/Vol] 103 mmol/L Normal 101-111 [facility] Comment on above: Order Comment: pt in [place] [address] 02/01/2023 15:26:12 EDT Performed By: #### 1 3724423, 6683740, 5423046, 0787022, 5636935, 8315471 ####[facility] [address] [place] [address] CO2 [Moles/Vol] 29 mmol/L Normal 21-31 [facility] Comment on above: Order Comment: pt in [place] [address] 02/01/2023 15:26:12 EDT Performed By: #### 1 6929708, 9519251, 2963713, 4554819, 9968396, 6292660 ####[facility] [address] [place] [address] Glucose [Mass/Vol] 116 mg/dL Normal 55-199 [facility] Comment on above: Order Comment: pt in [place] [address] 02/01/2023 15:26:12 EDT Result Comment: If t his glucose result represents a fasting glucose, interpretation should refer to the following reference range: 55-99 mg/dL Performed By: #### 1 5797812, 1363086, 3894111, 5695724, 0393684, 6115698 ####[facility] [address] [place] [address] Potassium [Moles/Vol] 3.6 mmol/L Normal 3.5-5.3 [facility] Comment on above: Order Comment: pt in [place] [address] 02/01/2023 15:26:12 EDT Performed By: #### 1 2032118, 4093889, 7751892, 8266103, 2635348, 7856378 ####[facility] [address] [place] [address] Sodium [Moles/Vol] 136 mmol/L Normal 135-145 [facility] Comment on above: Order Comment: pt in [place] [address] 02/01/2023 15:26:12 EDT Performed By: #### 1 3404105, 7569928, 2724463, 0246151, 2302846, 4888954 ####[facility] [address] [place] [address] CT Head or Brain w/o Contras ton 02-01-2023 CT Head or Brain w/o Contrast Normal [facility] Consent for Treatmenton Consent for Treatment [id number]:127 Normal [facility] ED Clinical Summaryon 2022 ED Clinical Summary Normal Kait mccray [facility] ED Note-Nursingon 02-01-2023 ED Note-Nursing Maegan at bedside. concepcion metcalf about a man that lives at her house who looks like her son but he isn't her son. flight of idea comments. tearful at times. turkey sandwich given. tv turned on to occupy pt Normal [facility] ED Note-Nursing this rn spoke with chiara kaba at [facility]. ean is going to reach out to oracio, pt's son. Normal [facility] ED Note-Physicianon 02-02-20 ED Note-Physician Normal [facility] Comment on above: Result Comment: Elec tronically Signed By: Mati Taylor DO\Karanbr\Date and Time Signed: 02/01/23 23:28 EDT ED Patient Education Noteon 02-01-2023 ED Patient Education Note Normal [facility] ED Patient Summaryon 023 ED Patient Summary Normal [facility] Ethanolon 02-01-2023 Ethanol [Mass/Vol] mg/dL Normal <=7 [facility] Comment on above: Order Comment: pt in [id number] 02/01/2023 15:26:12 EDT Performed By: #### 2 [id number] ####[facility] [address] [place] [address] HEMATOLOGYOrdered By: SYSTEM SYSTEM on 02-01-2023 Basophils/100 [...] NEG [place] (02/01/23 9:45 PM) Normal [facility] Man Sero Rapid COV Int POS [place] (02/01/23 9:45 PM) Normal [facility] Man Sero SARS-CoV+SARS-CoV-2 (COVID-19) Ag IA.rapid Ql (Resp) Not Detected (02/01/23 9:45 PM) Normal Not Detected [facility] Man Sero Pre-Arrival Noteon 3 Pre-Arrival Note Normal [facility] Rapid COVID Antigen ([facility])on 02-01-2023 Rapid COV Int NEG [place]l [place] Normal Fis her [facility] Comment on above: Performed By: #### 2 [id number] ####[facility] [address] [place] [address] Rapid COV Int POS [place]l [place] Normal Fis her [facility] Comment on above: Performed By: #### 2 [id number] ####[address] [place] [address] SARS-CoV+SARS-CoV-2 (COVID-19) Ag IA.rapid Ql (Resp) Not detected Normal Not Detected [facility] Comment on above: Result Comment: The RFIDeas System for Rapid Detection of SARS-CoV-2 is [...] For in vitro diagnostic use. In the [facility], only for use under an Emergency Use [...] or revoked sooner. Performed By: #### 2 [id number] ####[facility] [address] [place] [address] Salicylateon 02-01-2023 Salicylates [Mass/Vol] mg/dL Low 6-29 [facility] Comment on above: Order Comment: pt in [id number] 02/01/2023 15:26:12 EDT Performed By: #### 1 3954177, 4734847, 5063516, 6592548, 4031026, 7907728 ####[facility] [address] [place] [address] U Drug Screenon 02-01-2023 Benzodiazepines Ql (U) Positive Abnormal Negative [facility] Comment on above: Result Comment: Resu lts verified by repeat analysis\Unconfirmed by alternate method\No confirmation requested by Physican\Critical Result UD_BENZ:POS Called to BEBE PAINTER AT ED by JOSEPH FRIAS And Read Back For Confirmation at: 02/01/2023 16:56:10Negative Cutoff: <200 ng/mL Performed By: #### 2 [id number] ####[facility] [address] [place] [address] Opiates Screen Ql (U) Positive Abnormal Negative Fis [facility] Comment on above: Result Comment: Resu lts verified by repeat analysis\Unconfirmed by alternate method\No confirmation requested by Physican\Critical Result UD_OPIA:POS Called to BEBE PAINTER AT ED by JOSEPH FRIAS And Read Back For Confirmation at: 02/01/2023 16:56:10Negative Cutoff: <300 ng/mL Performed By: #### 2 [id number] ####[facility] [address] [place] [address] Amphetamines Screen method >1000 ng/mL Ql (U) Negative Normal Negative [facility] Comment on above: Result Comment: Nega tive Cutoff: <1000 ng/mL Performed By: #### 2 [id number] ####[facility] [address] [place] [address] Barbiturates Screen Ql (U) Negative Normal Negative [facility] Comment on above: Result Comment: Nega tive Cutoff: <200 ng/mL Performed By: #### 2 [id number] ####[facility] [address] [place] [address] Cocaine Ql (U) Negative Normal Negative [facility] Comment on above: Result Comment: Nega tive Cutoff: <300 ng/mL Performed By: #### 2 [id number] ####[facility] [address] [place] [address] Phencyclidine Screen method >25 ng/mL Ql (U) Negative Normal Negative [facility] Comment on above: Result Comment: Nega tive Cutoff: <25 ng/mLThese drug screen results are to be used for medical (i.e., treatment) purposes only. Unconfirmed drug screening results must not be used for non-medical purposes (e.g., employment testing, legal testing). Performed By: #### 2 [id number] ####[address] [place] [address] Tetrahydrocannabinol Screen method >50 ng/mL Ql (U) Negative Normal Negative [facility] Comment on above: Result Comment: Nega tive Cutoff: <50 ng/mL Performed By: #### 2 [id number] ####[facility] [address] [place] [address] UA With Cult Reflexon 2022 Bilirubin Ql (U) Negative Normal Negative [facility] Comment on above: Performed By: #### 1 [id number] ####[facility] [address] [place] [address] Clarity (U) CLEAR Normal Clear [facility] Comment on above: Performed By: #### 1 [id number] ####[facility] [address] [place] [address] Color (U) YELLOW Normal Yellow [facility] Comment on above: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 B MP, CRP, URIC #### [facility] [address] [place] [address] Dr. Stevie Torres EGFR-AF TANZANIAN 40 mL/min/1.73m2 Critically low >=60 [facility] Comment on above: Performed By: #### B MP, CRP, URIC #### [facility] [address] [address] [address] Stevie Torres EGFR-NON AF TANZANIAN 33 mL/min/1.73m2 Critically low >=60 [facility] Comment on above: Performed By: #### B MP, CRP, URIC #### [facility] [address] [place] [address] Dr. Stevie Torres Glucose [Mass/Vol] 143 mg/dL Critically high 74-[address] [facility] Comment on above: Performed By: #### B MP, CRP, URIC #### [facility] [address] [place] [address] Dr. Stevie Torres Potassium [Moles/Vol] 4.3 mmol/L Normal 3.5-5.1 [facility] Comment on above: Performed By: #### B MP, CRP, URIC #### [facility] [address] [place] [address] Dr. Stevie Torres Sodium [Moles/Vol] 136 mmol/L Normal 136-145 [facility] Comment on above: Performed By: #### B MP, CRP, URIC #### [facility] [address] [place] [address] Dr. Stevie Torres Urea nitrogen [Mass/Vol] 19.0 mg/dL Critically high 7.0-18.0 [facility] Comment on above: Performed By: #### B MP, CRP, URIC #### [facility] [address] [place] [address] Dr. Stevie Torres Urea nitrogen/Creatinine [Mass ratio] 12.3 mg/mg Normal [facility] Comment on above: Performed By: #### B MP, CRP, URIC #### [facility] [address] [place] [address] Dr. Stevie Torres [facility] 18 mm/hr Normal <=30 [facility] Comment on above: Performed By: #### S EDR #### [facility] [address] [place], [place] [address] Dr. Stevie Torres URIC ACID SERUMon 10-18-2022 Urate [Mass/Vol] 5.4 mg/dL Normal 2.6-6.0 [facility] Comment on above: Performed By: #### B MP, CRP, URIC #### [facility] [id number] Stevie Torres XR FOOT RT MIN [...] by: JORGE WOODS Date: 2022-10-18 21:46 Normal [facility] Automated erythrocytes count in urine sediment (number/area)Ordered By: Rogelio De on 06-09-2022 RBC Auto (Urine sed) [#/Area] 0-1 [HPF] 0-4 [facility] Automated leukocytes count i n urine sediment (number/area)Ordered By: Rogelio De on 06-09-2022 WBC Auto (Urine sed) [#/Area] 20-49 [HPF] 0-4 [facility] Bilirubin Test strip Ql (U)O rdered By: Rogelio De on 06-09-2022 Bilirubin Ql (U) Negative Negative [facility] Color Auto (U)Ordered By: Ab celeste De on 06-09-2022 Color (U) Yellow Yellow [facility] Ketones Auto test strip (U) [Mass/Vol]Ordered By: Rogelio De on 06-09-2022 Ketones (U) [Mass/Vol] Negative Negative [facility] - UrinalysisOrder ed By: Rogelio De on 06-09-2022 Hyaline casts LM Ql (Urine sed) 0-8 [LPF] 0-8 [facility] Nitrite Test strip Ql (U)Ord ered By: Rogelio De on 06-09-2022 Nitrite Ql (U) Negative Negative [facility] Protein Auto test strip (U) [Mass/Vol]Ordered By: Rogelio De on 06-09-2022 Protein (U) [Mass/Vol] Negative Negative [facility] Specific gravity Auto test s trip (U) [Rel density]Ordered By: Rogelio De on 06-09-2022 Specific gravity (U) [Rel density] 1.010 1.001-1.03 0 [facility] Squamous epithelial cells de tection in urine sediment by light microscopyOrdered By: Rogelio De on 06-09-2022 Epithelial cells.squamous LM Ql (Urine sed) 0-1 [HPF] 0-2 [facility] Urine bacteria detection by automated methodOrdered By: Rogelio De on 06-09-2022 Bacteria Auto Ql (U) None seen None Seen [facility] Urine clarity by refractomet ry automatedOrdered By: Rogelio De on 06-09-2022 Clarity Refractometry automated (U) Clear Clear [facility] Urine glucose measurement by automated test strip (mass/volume)Ordered By: Rogelio De on 06-09-2022 Glucose Auto test strip (U) [Mass/Vol] Normal mg/dL Normal [facility] Urine hemoglobin detection b y automated test stripOrdered By: Rogelio De on 06-09-2022 Hemoglobin Auto test strip Ql (U) Negative Negative [facility] Urine leukocyte esterase det ection by automated test stripOrdered By: Rogelio De on 06-09-2022 Leukocyte esterase Auto test strip Ql (U) 4+ Negative [facility] Urobilinogen Auto test strip (U) [Mass/Vol]Ordered By: Rogelio De on 06-09-2022 Urobilinogen (U) [Mass/Vol] Normal mg/dL Normal [facility] pH Auto test strip (U)Ordere d By: Rogelio De on 06-09-2022 pH (U) 5.5 [pH] 5.0-9.0 [facility] Albumin [Mass/volume] in Ser um or PlasmaOrdered By: Rogelio De on 06-08-2022 Albumin [Mass/Vol] 3.0 g/dL 3.2-5.5 [facility] Creatinine and Glomerular fi ltration rate.predicted panel (S/P/Bld)Ordered By: Rogelio De on 06-08-2022 Creatinine [Mass/Vol] 1.02 mg/dL 0.44-1.[address] [facility] Estimated glomerular filtrat ion rate (GFR) non- AmericanOrdered By: Rogelio De on 06-08-2022 GFR/1.73 sq M.predicted among non-blacks MDRD (S/P/Bld) [Vol rate/Area] 53 mL/Min [facility] Globulin Calc (S) [Mass/Vol] Ordered By: Rogelio De on 06-08-2022 Globulin (S) [Mass/Vol] 2.2 g/dL [facility] Glucose mean value [Mass/vol ume] in Blood Estimated from glycated hemoglobinOrdered By: Rogelio De on 06-08-2022 Average glucose Estimated from glycated hemoglobin (Bld) [Mass/Vol] 126 mg/dL [facility] Hemoglobin A1c percentageOrd ered By: Rogelio De on 06-08-2022 HbA1c (Bld) [Mass fraction] 6.0 % 4.3-5.6 [facility] Comment on above: Increased risk for d iabetes: 5.7 - 6.4diabetes: >6.4glycemic control for adults with diabetes: <7.0 No Panel InformationOrdered By: Rogelio De on 06-08-2022 Estimated GFR () > 60 mL/Min [facility] Comment on above: GFR estimated refere nce range: According to KDOQI guidelines, <60 ml/min/1.73m2 is sufficient to diagnose a patient with chronic kidney disease. Pharmacy Creatinine Clearance (Chem 36.51 [facility] Protein [Mass/volume] in Ser um or PlasmaOrdered By: Rogelio De on 06-08-2022 Protein [Mass/Vol] 5.2 g/dL 6.1-7.9 [facility] Serum or plasma alanine hancock otransferase measurement without P-5'-P (enzymatic activiOrdered By: Rogelio De on 06-08-2022 ALT No additional P-5'-P [Catalytic activity/Vol] 15 U/L 10-60 [facility] Serum or plasma albumin/glob ulin mass ratioOrdered By: Rogelio De on 06-08-2022 Albumin/Globulin [Mass ratio] 1.4 {ratio} [facility] Serum or plasma alkaline miguel ángel sphatase measurement (enzymatic activity/volume)Ordered By: oRgelio De on 06-08-2022 ALP [Catalytic activity/Vol] 53 U/L 32-92 [facility] Serum or plasma anion gap de terminationOrdered By: Rogelio De on 06-08-2022 Anion gap [Moles/Vol] 9.5 mmol/L 6.0-15.[address] [facility] Serum or plasma aspartate am inotransferase measurement (enzymatic activity/volume)Ordered By: Rogelio De on 06-08-2022 AST [Catalytic activity/Vol] 16 U/L 10-42 [facility] Serum or plasma calcium dimitris urement (mass/volume)Ordered By: Rogelio eD on 06-08-2022 Calcium [Mass/Vol] 9.2 mg/dL 8.2-10.2 [facility] Serum or plasma chloride jeison surement (moles/volume)Ordered By: Rogelio De on 06-08-2022 Chloride [Moles/Vol] 96 mmol/L 95-114 [facility] Serum or plasma glucose dimitris urement (mass/volume)Ordered By: Rogelio De on 06-08-2022 Glucose [Mass/Vol] 102 mg/dL 70-100 [facility] Comment on above: ADA recommended refe rence rangeRandom Glucose Reference Range is dependent on time and content of last meal. Glucose of more than 200 mg/dL in a nonstressed, ambulatory subject supports the diagnosis of Diabetes Mellitus. Serum or plasma potassium me asurement (moles/volume)Ordered By: Rogelio De on 06-08-2022 Potassium [Moles/Vol] 4.3 mmol/L 3.5-5.[address] [facility] Serum or plasma sodium measu rement (moles/volume)Ordered By: Rogelio De on 06-08-2022 Sodium [Moles/Vol] 131 mmol/L 136-146 [facility] Serum or plasma total biliru bin measurement (mass/volume)Ordered By: Rogelio De on 06-08-2022 Bilirubin [Mass/Vol] 0.3 mg/dL 0.3-1.2 [facility] Serum or plasma total carbon dioxide measurement (moles/volume)Ordered By: Rogelio De on 06-08-2022 CO2 [Moles/Vol] 29.8 mmol/L 22.0-30.0 [facility] Serum or plasma urea nitroge n measurement (mass/volume)Ordered By: Rogelio De on 06-08-2022 Urea nitrogen [Mass/Vol] 28 mg/dL 9-23 [facility] Cholesterol [Mass/volume] in Serum or PlasmaOrdered By: Rogelio De on 05-26-2022 Cholesterol [Mass/Vol] 154 mg/dL 140-200 [facility] Comment on above: Chol less than 200 m g/dl low riskChol 201-239 mg/dl borderline riskChol 240 mg/dl and greater high risk Cholesterol in LDL Calc [Mas s/Vol]Ordered By: Rogelio De on 05-26-2022 Cholesterol in LDL [Mass/Vol] 73 mg/dL 0-100 [facility] Comment on above: LDL ATP III CLASSIFI CATIONLDL less than 100 mg/dL OptimalLDL 100-129 mg/dL Near or above optimalLDL 130-159 mg/dL Borderline highLDL 160-189 mg/dL HighLDL greater than 189 mg/dL Very high Cholesterol in VLDL Calc [Ma ss/Vol]Ordered By: Rogelio De on 05-26-2022 Cholesterol in VLDL [Mass/Vol] 13 mg/dL [facility] No Panel InformationOrdered By: Rogelio De on 05-26-2022 25-Hydroxy Vitamin D Total 57.1 ng/mL 30-100 [facility] Comment on above: VITAMIN D STATUS 25( [place])VITAMIN D RANGE (ng/mL) Deficient <20 Insufficient 20 to <30Sufficient 30 to 100Reference: Mahesh CORNELIUS,[place] MCNEAL, Omega CABRERA, et al. Evaluation,treatment, and prevention of vitamin D deficiency; an Endocrine Society clinical practice guideline. JCEM. 2010; 96(7):1911-30. Serum or plasma high density lipoprotein (HDL) cholesterol measurementOrdered By: Rogelio De on 05-26-2022 Cholesterol in HDL [Mass/Vol] 67 mg/dL 35-85 [facility] Comment on above: HDL CHOL ATP-III CLA SSIFICATION Cardiovascular RiskHDL > or equal to 60 mg/dL LOWHDL < 40 mg/dL HIGH Serum or plasma total choles terol/high density lipoprotein (HDL) cholesterol mass ratOrdered By: Rogelio De on 05-26-2022 Cholesterol.total/Chol esterol in HDL [Mass ratio] 2.3 {ratio} <5.0 [facility] TSH DL <= 0.005 mIU/L QnOrde red By: Rogelio De on 05-26-2022 TSH Qn 0.56 m[IU]/L 0.45-5.33 [facility] Triglyceride [Mass/volume] i n Serum or PlasmaOrdered By: Rogelio De on 05-26-2022 Triglyceride [Mass/Vol] 69 mg/dL 35-149 [facility] Comment on above: TRIG ATP III CLASSIF ICATIONTRIG less than 150 mg/dL NormalTRIG 150-199 mg/dL Borderline highTRIG 200-500 mg/dL High TRIG greater than 500 mg/dL Very highStandard traceable to the Center for Disease Conrtrol and Prevention (CDC) test method. Basophils Auto (Bld) [#/Vol] Or[facility]: [facility] on 05-25-2022 Basophils (Bld) [#/Vol] 0.1 10*3/uL 0.0-0.2 [facility] Basophils/100 WBC Auto (Bld) Ordered By: [facility] Ky[facility] on 05-25-2022 Basophils/100 WBC (Bld) 0.6 % . [facility] Eosinophils Auto (Bld) [#/Vo l]Ordered By: [facility] [place] on 05-25-2022 Eosinophils (Bld) [#/Vol] 0.1 10*3/uL 0.0-0.45 [facility] Eosinophils/100 WBC Auto (Bl d)Ordered By: [facility] Kya on 05-25-2022 Eosinophils/100 WBC (Bld) 0.6 % . [facility] Erythrocyte distribution wid th Auto (RBC) [Ratio]Ordered By: prashant [place] on 05-25-2022 Erythrocyte distribution width (RBC) [Ratio] 12.2 % 11.9-15.3 [facility] Hematocrit Auto (Bld) [Volum e fraction]Ordered By: heather Boland on 05-25-2022 Hematocrit (Bld) [Volume fraction] 39.4 % 34.0-46.4 [facility] Hemoglobin [Mass/volume] in BloodOrdered By: prashant [place] on 05-25-2022 Hemoglobin (Bld) [Mass/Vol] 13.0 g/dL 11.8-15.4 [facility] Leukocytes [#/volume] correc kenyatta for nucleated erythrocytes in Blood by Automated counOrdered By: heather Bolandr on 05-25-2022 WBC corrected for nucl RBC Auto (Bld) [#/Vol] 11.1 10*3/uL 3.8-11.6 [facility] Lymphocytes Auto (Bld) [#/Vo l]Ordered By: Rome Vegaomar on 05-25-2022 Lymphocytes (Bld) [#/Vol] 1.4 10*3/uL 1.00-4.8 [facility] Lymphocytes/100 WBC Auto (Bl d)Ordered By: Rome Vegaomar on 05-25-2022 Lymphocytes/100 WBC (Bld) 12.4 % . [facility] MCH Auto (RBC) [Entitic mass ]Ordered By: Rome Vegaomar on 05-25-2022 MCH (RBC) [Entitic mass] 30.9 pg 24.7-34.3 [facility] MCHC Auto (RBC) [Mass/Vol]Or dered By: Rome Vegaomar on 05-25-2022 MCHC (RBC) [Mass/Vol] 32.9 g/dL 32.0-35.[address] [facility] MCV Auto (RBC) [Entitic vol] Ordered By: Rome Vegaomar on 05-25-2022 MCV (RBC) [Entitic vol] 94.0 fL 80-100 [facility] MICRO OTHER TESTSOrdered By: Luis Trotter on 05-25-2022 Rapid COV Int NEG [place] (05/25/22 2:11 AM) Normal [facility] Man Sero Rapid COV Int POS [place]l [place] (05/25/22 2:11 AM) Normal [facility] Man Sero SARS-CoV+SARS-CoV-2 (COVID-19) Ag IA.rapid Ql (Resp) Not Detected (05/25/22 2:11 AM) Normal Not Detected [facility]ero Monocytes Auto (Bld) [#/Vol] Ordered By: Rome Bolandr on 05-25-2022 Monocytes (Bld) [#/Vol] 0.9 10*3/uL 0.0-0.8 [facility] Monocytes/100 WBC Auto (Bld) Ordered By: Rome Bolandr on 05-25-2022 Monocytes/100 WBC (Bld) 7.8 % . [facility] Neutrophils Auto (Bld) [#/Vo l]Ordered By: Rome Bolandr on 05-25-2022 Neutrophils (Bld) [#/Vol] 8.7 10*3/uL 1.8-7.7 [facility] Neutrophils/100 WBC Auto (Bl d)Ordered By: Obyanickdah Daromar on 05-25-2022 Neutrophils/100 WBC (Bld) 78.6 % . [facility] Nucleated erythrocytes [Pres ence] in Blood by Automated countOrdered By: Obyanickdah Daromar on 05-25-2022 Nucleated RBC Auto Ql (Bld) 0.0 /100{WBC} 0-0.5 [facility] Platelet mean volume Auto (B ld) [Entitic vol]Ordered By: Obyanickdah Daromar on 05-25-2022 Platelet mean volume (Bld) [Entitic vol] 7.1 fL 6.3-10.7 [facility] Platelets Auto (Bld) [#/Vol] Ordered By: Obyanickdachiara Daromar on 05-25-2022 Platelets (Bld) [#/Vol] 219 10*3/uL 150-450 [facility] RBC Auto (Bld) [#/Vol]Ordere d By: Obaydah Daromar on 05-25-2022 RBC (Bld) [#/Vol] 4.19 10*6/uL 3.60-5.00 [facility] WBC Auto (Bld) [#/Vol]Ordere d By: Obaydah Daromar on 05-25-2022 WBC (Bld) [#/Vol] 11.1 10*3/uL 3.8-11.6 [facility] CBC AUTO DIFFon 05-24-2022 BASO # 0.1 103/ul Normal 0.0-0.1 [facility] Comment on above: Performed By: #### C BC #### [facility] [address] [address] [address] Stevie Torres Basophils/100 WBC (Bld) 0.6 % Normal 0.2-2.0 [facility] Comment on above: Performed By: #### C BC #### [facility] [address] [place], [place] [address] Dr. Stevie Torres EO # 0.1 103/ul Normal 0.0-0.7 [facility] Comment on above: Performed By: #### C BC #### [facility] [facility] [address] [place] [address] Dr. Stevie Torres Eosinophils/100 WBC (Bld) 0.8 % Critically low 0.9-7.0 [facility] Comment on above: Performed By: #### C BC #### [facility] [address] [place] [address] Dr. Stevie Torres Erythrocyte distribution width (RBC) [Ratio] 11.6 % Normal 11.0-15.0 [facility] Comment on above: Performed By: #### C BC #### [facility] [address] [place] [address] Dr. Stevie Torres Hematocrit (Bld) [Volume fraction] 38.4 % Normal 36.0-48.0 [facility] Comment on above: Performed By: #### C BC #### [facility] [address] [place] [address] Dr. Stevie Torres Hemoglobin (Bld) [Mass/Vol] 12.5 g/dL Normal 12.0-16.0 [facility] Comment on above: Performed By: #### C BC #### [facility] [address] [place] [address] Dr. Stevie Torres IG # 0.05 10e3/ul Critically high 0.00-0.03 [facility] Comment on above: Performed By: #### C BC #### [facility] [address] [place] [address] Dr. Stevie Torres IG % 0.4 % Normal 0.0-0.5 [facility] Comment on above: Performed By: #### C BC #### [facility] [address] [place] [address] Dr. Stevie Torres LYMPH # 1.7 103/ul Normal 1.2-3.8 [facility] Comment on above: Performed By: #### C BC #### [facility] [address] [place] [address] Dr. Stevie Torres Lymphocytes/100 WBC (Bld) 15.5 % Critically low 20.5-60.0 [facility] Comment on above: Performed By: #### C BC #### [facility] [address] [place] [address] Dr. Stevie Torres MANUAL DIFF REQ NO Normal [facility] Comment on above: Performed By: #### C BC #### [facility] [address] [place] [address] Dr. Stevie Torres MCH (RBC) [Entitic mass] 31.2 pg Normal 26.7-34.0 [facility] Comment on above: Performed By: #### C BC #### [facility] [address] [place] [address] Dr. Stevie Torres MCHC (RBC) [Mass/Vol] 32.6 g/dL Normal 29.9-35.2 [facility] Comment on above: Performed By: #### C BC #### [facility] [address] [place] [address] Dr. Stevie Torres MCV (RBC) [Entitic vol] 95.8 fL Normal 81.0-99.0 [facility] Comment on above: Performed By: #### C BC #### [facility] [address] [place] [address] Dr. Stevie Torres MONO # 1.1 103/ul Critically high 0.3-0.8 [facility] Comment on above: Performed By: #### C BC #### [facility] [address] [place] [address] Dr. Stevie Torres Monocytes/100 WBC (Bld) 9.6 % Normal 1.7-12.0 [facility] Comment on above: Performed By: #### C BC #### [facility] [address] [place] [address] Dr. Stevie Torres NEUT # 8.2 103/ul Critically high 1.4-6.5 [facility] Comment on above: Performed By: #### C BC #### [facility] [address] [place] [address] Dr. Stevie Torres Neutrophils/100 WBC (Bld) 73.1 % Normal 43.0-75.0 [facility] Comment on above: Performed By: #### C BC #### [facility] [address] [address] [address] Stevie Torres Platelet mean volume (Bld) [Entitic vol] 8.4 fL Critically low 9.5-13.5 [facility] Comment on above: Performed By: #### C BC #### [facility] [address] [address] [address] Stevie Torres PLT 223 103/ul Normal 150-450 [facility] Comment on above: Performed By: #### C BC #### [facility] [address] [address] [address] Stevie Torres RBC 4.01 106/ul Critically low 4.20-5.40 [facility] Comment on above: Performed By: #### C BC #### [facility] [address] [place] [address] Dr. Stevie Torres WBC 11.2 103/ul Critically high 4.0-11.0 [facility] Comment on above: Performed By: #### C BC #### [facility] [address] [place] [address] Dr. Stevie Torres CHEMISTRYOrdered By: SYSTEM SYSTEM [...] m2 [facility] Chem S Globulin (S) [Mass/Vol] 2.8 g/dL Normal 1.4 - 4.0 gm/dL [facility] Remisol Glucose [Mass/Vol] 98 mg/dL Normal 55 - 199 mg/dL [facility] Remisol Potassium [Moles/Vol] 4.1 mmol/L Normal 3.5 - 5.3 mmol/L [facility] Remisol Protein [Mass/Vol] 7.2 g/dL Normal 6.0 - 7.8 gm/dL [facility] Remisol Sodium [Moles/Vol] 133 mmol/L Low 135 - 145 mmol/L [facility] Remisol Urea nitrogen [Mass/Vol] 19 mg/dL Normal 5 - 21 mg/dL [facility] Remisol Urea nitrogen/Creatinine [Mass ratio] 17 mg/mg Normal 10 - 20 [facility] Remisol ER URINE PROFILEon 2 Bilirubin Ql (U) Negative Normal NEGATIVE [facility] Comment on above: Performed By: #### E RUR #### [facility] [address] [place] [address] Dr. Stevie Torres Clarity (U) CLEAR Normal CLEAR [facility] Comment on above: Performed By: #### E RUR #### [facility] [address] [place] [address] Dr. Stevie Torres Color (U) LT. YELLOW Normal YELLOW [facility] Comment on above: Performed By: #### E RUR #### [facility] [address] [place] [address] Dr. Stevie DUNN A micrscopic examina tion will be performed if indicated. Normal [facility] Comment on above: Performed By: #### E RUR #### [facility] [address] [place] [address] Dr. Stevie Torres Glucose Ql (U) 500 mg/dl Abnormal NEGATIVE [facility] Comment on above: Performed By: #### E RUR #### [facility] [address] [place] [address] Dr. Stevie Torres Hemoglobin Ql (U) Negative Normal NEGATIVE [facility] Comment on above: Performed By: #### E RUR #### [facility] [address] [place] [address] Dr. Stevie Torres Ketones Ql (U) Negative Normal NEGATIVE [facility] Comment on above: Performed By: #### E RUR #### [facility] [address] [place] [address] Dr. Stevie Torres LEUKOCYTES Negative Normal NEGATIVE [facility] Comment on above: Performed By: #### E RUR #### [facility] [address] [place] [address] Dr. Stevie Torres Nitrite Ql (U) Negative Normal NEGATIVE [facility] Comment on above: Performed By: #### E RUR #### [facility] [address] [place] [address] Dr. Stevie Torres pH (U) 5.0 [pH] Normal 5-9 [facility] Comment on above: Performed By: #### E RUR #### [facility] [address] [place] [address] Dr. Stevie Torres SPEC GRAVITY >=1.030 Abnormal 1.005-<=1. 025 [facility] Comment on above: Performed By: #### E RUR #### [facility] [address] [place] [address] Dr. Stevie Torres UA PROTEIN Negative Normal NEGATIVE/ TRACE [facility] Comment on above: Performed By: #### E RUR #### [facility] [address] [place] [address] Dr. Stevie Torres UR MICRO IND NOT INDICATED Normal [facility] Comment on above: Performed By: #### E RUR #### [facility] [address] [place] [address] Dr. Stevie Torres Urobilinogen Qn (U) 0.2 {Rolan'U}/dL Normal 0.2 - 1. 0 [facility] Comment on above: Performed By: #### E RUR #### [facility] [address] [place] [address] Dr. Stevie Torres HEMATOLOGYOrdered By: SYSTEM SYSTEM [...] 4.2 E12/L Low 4.3 - 5.9 E12/L [facility] HemeAutoSS WBC corrected for nucl RBC Auto (Bld) [#/Vol] 11.0 E9/L Normal 4.0 - 11.0 E9/L [facility] HemeAutoSS PROF CHEM 8 (BAS METB)on Anion gap [Moles/Vol] 12.6 mmol/L Normal [facility] Comment on above: Performed By: #### TAMMIE LOVELL #### [facility] [address] [place] [address] Dr. Stevie Torres Calcium [Mass/Vol] 9.1 mg/dL Normal 8.5-10.1 [facility] Comment on above: Performed By: #### TAMMIE LOVELL #### [facility] [address] [place] [address] Dr. Stevie Torres Chloride [Moles/Vol] 97 mmol/L Critically low 98-107 [facility] Comment on above: Performed By: #### TAMMIE LOVELL #### [facility] [address] [place] [address] Dr. Stevie Torres CO2 [Moles/Vol] 29.6 mmol/L Normal 21.0-32.0 [facility] Comment on above: Performed By: #### TAMMIE LOVELL #### [facility] [address] [place] [address] Dr. Stevie Torres Creatinine [Mass/Vol] 1.22 mg/dL Critically high 0.55-1.02 [facility] Comment on above: Performed By: #### TAMMIE LOVELL #### [facility] [address] [place] [address] Dr. Stevie Torres EGFR-AF TANZANIAN 52 mL/min/1.73m2 Critically low >=60 [facility] Comment on above: Performed By: #### TAMMIE LOVELL #### [facility] [address] [place] [address] Dr. Stevie Torres EGFR-NON AF TANZANIAN 43 mL/min/1.73m2 Critically low >=60 [facility] Comment on above: Performed By: #### E RUR, UMICRO #### [facility] [address] [address] [address] Stevie Torres Glucose [Mass/Vol] 142 mg/dL Critically high 74-[address] [facility] Comment on above: Performed By: #### E RUR, UMICRO #### [facility] [address] [address] [address] Stevie Torres Potassium [Moles/Vol] 4.2 mmol/L Normal 3.5-5.1 [facility] Comment on above: Performed By: #### E RUR, UMICRO #### [facility] [address] [address] [address] Stevie Torres Sodium [Moles/Vol] 135 mmol/L Critically low 136-145 [facility] Comment on above: Performed By: #### E RUR, UMICRO #### [facility] [address] [place] [address] Dr. Stevie Torres Urea nitrogen [Mass/Vol] 28.0 mg/dL Critically high 7.0-18.0 [facility] Comment on above: Performed By: #### E RUR, UMICRO #### [facility] [address] [address] [address] Stevie Torres Urea nitrogen/Creatinine [Mass ratio] 23.0 mg/mg Normal [facility] Comment on above: Performed By: #### E RUR, UMICRO #### [facility] [address] [place] [address] Dr. Stevie Torres TROPONIN, HIGH SENSITIVITYon 05-24-2022 HSTROP 15.5 pg/mL Normal 4.0-51.3 [facility] Comment on above: Result Comment: CUT- OFF POINTS HAVE BEEN ESTABLISHED BASED ON THE FOURTH UNIVERSAL DEFINITIONS OF MYOCARDIAL INFARCTION. THE UPPER REFERENCE LIMIT (URL) OF TROPONIN, DEFINED THE 99TH PERCENTILE OF cTnI DISTRIBUTION IN A REFERENCE POPULATION, HAS BEEN CONFIRMED THE DECISION THRESHOLD FOR ID DIAGNOSIS. Performed By: #### E RUR, UMICRO #### [facility] [address] [place] [address] Dr. Stevie Torres URINALYSISOrdered By: Luis Trotter [...] PM) Normal Negative [facility] UA Auto SS Wickes.plasma/Wickes .RBC (Bld) [Mass ratio] 0-3 /HPF Normal [...] Desc Clean Catch (05/24/22 11:46 PM) Normal [facility] UA Auto SS Urobilinogen Qn (U) 0.0814242 {Rolan'U}/dL Normal 0.0 - 1.0 EU/dL [facility] UA Auto SS WBC Auto Ql (U) Negative (05/24/22 11:46 PM) Normal Negative [facility] UA Auto SS WBC LM.HPF (Urine sed) [#/Area] 0-5 /HPF Normal 0-5/HPF [facility] UA Auto SS CHEMISTRYOrdered By: Lab ROP User on 04-19-2022 Glucose [Mass/Vol] 121 mg/dL High 55 - 99 mg/dL [facility] POC Subsection Comment on above: Result Comment: Christina perea RN/ POC Device SN [id number] Invalid Interpretation Code [facility] POC Subsection POC User ID [id number] Invalid Interpretation Code [facility] POC Subsection POC Username BOBBY LOU Invalid Interpretation Code [facility] POC Subsection CHEMISTRYOrdered By: SYSTEM SYSTEM on 04-19-2022 Sodium [Moles/Vol] 133 mmol/L Low 135 - 145 mmol/L [facility] Remisol Anion gap [Moles/Vol] 13 mmol/L Normal 6 - 16 mEq/L [facility] Remisol Calcium [Mass/Vol] 8.9 mg/dL Normal 8.9 - 11. 1 mg/dL [facility] Remisol Chloride [Moles/Vol] 94 mmol/L Low 101 - 1 11 mmol/L [facility] CO2 [Moles/Vol] 28 mmol/L Normal 21 - 31 mmol/L [facility] Creatinine [Mass/Vol] 1.4 mg/dL High 0.5 - 1.3 mg/dL [facility] Remisol GFR/1.73 sq M.predicted among blacks MDRD (S/P/Bld) [Vol rate/Area] 45 mL/min/1.73 m2 Low >=59mL/min /1.73 m2 [facility] Chem S GFR/1.73 sq M.predicted among non-blacks MDRD (S/P/Bld) [Vol rate/Area] 37 mL/min/1.73 m2 Low >=59mL/min /1.73 m2 [facility] Chem S Glucose [Mass/Vol] 97 mg/dL Normal [...] ratio] 16 mg/mg Normal 10 - 20 [facility] Remisol CHEMISTRYOrdered By: SYSTEM SYSTEM on 04-18-2022 Anion gap [Moles/Vol] 8 mmol/L Normal 6 - 16 mEq/L [facility] Remisol Calcium [Mass/Vol] 8.7 mg/dL Low 8.9 - 11. 1 mg/dL [facility] Remisol Chloride [Moles/Vol] 93 mmol/L Low 101 - 1 11 mmol/L [facility] Remisol CO2 [Moles/Vol] 32 mmol/L High 21 - 31 mmol/L [facility] Remisol Creatinine [Mass/Vol] 1.3 mg/dL Normal 0.5 - 1.3 mg/dL [facility] Remisol GFR/1.73 sq M.predicted among blacks MDRD (S/P/Bld) [Vol rate/Area] 49 mL/min/1.73 m2 Low >=59mL/min /1.73 m2 [facility] Chem S GFR/1.73 sq M.predicted among non-blacks MDRD (S/P/Bld) [Vol rate/Area] 40 mL/min/1.73 m2 Low >=59mL/min /1.73 m2 [facility] Chem S Glucose [Mass/Vol] 92 mg/dL Normal 55 - 199 mg/dL [facility] Remisol Magnesium [Mass/Vol] 2.0 mg/dL Normal 1.3 - 2 .4 mg/dL [facility] Remisol Potassium [Moles/Vol] 4.1 mmol/L Normal 3.5 - 5.3 mmol/L [facility] Remisol Urea nitrogen [Mass/Vol] 18 mg/dL Normal 5 - 21 mg/dL [facility] Remisol Urea nitrogen/Creatinine [Mass ratio] 14 mg/mg Normal 10 - 20 [facility] Remisol CHEMISTRYOrdered By: Sabi Pardo se on 04-18-2022 Osmolality [Osmolality] 272 mosm/kg Low 275 - 295 mOsm/kg [facility] Man UA SS CHEMISTRYOrdered By: Kris marquez on 04-17-2022 Sodium (U) [Moles/Vol] 82 mmol/L Invalid Interpretation Code [facility] Remisol U Osmolality 312 mOsm/kg Normal 50 - 1400 mOsm/kg [facility] Man UA SS CHEMISTRYOrdered By: SYSTEM SYSTEM on 04-17-2022 Troponin I.cardiac [Mass/Vol] 2.40 pg/mL Low 10.10 - 27.10 pg/mL [facility] Remisol Troponin I.cardiac [Mass/Vol] pg/mL Low 10.10 - 27.10 pg/mL [facility] Remisol Troponin I.cardiac [Mass/Vol] 3.00 pg/mL Low 10.10 - 27.10 pg/mL [facility] Remisol Anion gap [Moles/Vol] 12 mmol/L Normal 6 - 16 mEq/L [facility] Remisol Calcium [Mass/Vol] 8.9 mg/dL Normal 8.9 [...] 49 mL/min/1.73 m2 Low >=59mL/min /1.73 m2 [facility] Chem S Glucose [Mass/Vol] 100 mg/dL Normal [...] PM) Normal Negative [facility] UA Auto SS Wickes.plasma/Wickes .RBC (Bld) [Mass ratio] 0-3 /HPF Normal [...] Desc Clean Catch (04/17/22 12:00 PM) Normal [facility] UA Auto SS Urobilinogen Qn (U) 0.2524910 {Rolan'U}/dL Normal 0.0 - 1.0 EU/dL [facility] UA Auto SS WBC Auto Ql (U) Negative (04/17/22 12:00 PM) Normal Negative [facility] UA Auto SS WBC LM.HPF (Urine sed) [#/Area] 0-5 /HPF Normal 0-5/HPF [facility] UA Auto SS CBC AUTO DIFFon 04-10-2022 BASO # 0.1 103/ul Normal 0.0-0.1 [facility] Comment on above: Performed By: #### C BC #### [facility] [address] [place] [address] Dr. Stevie Torres Basophils/100 WBC (Bld) 1.2 % Normal 0.2-2.0 [facility] Comment on above: Performed By: #### C BC #### [facility] [address] [place] [address] Dr. Stevie Torres EO # 0.2 103/ul Normal 0.0-0.7 [facility] Comment on above: Performed By: #### C BC #### [facility] [address] [place] [address] Dr. Stevie Torres Eosinophils/100 WBC (Bld) 2.2 % Normal 0.9-7.0 [facility] Comment on above: Performed By: #### C BC #### [facility] [address] [place] [address] Dr. Stevie Torres Erythrocyte distribution width (RBC) [Ratio] 11.9 % Normal 11.0-15.0 [facility] Comment on above: Performed By: #### C BC #### [facility] [address] [place] [address] Dr. Stevie Torres Hematocrit (Bld) [Volume fraction] 34.6 % Critically low 36.0-48.0 [facility] Comment on above: Performed By: #### C BC #### [facility] [address] [place] [address] Dr. Stevie Torres Hemoglobin (Bld) [Mass/Vol] 11.1 g/dL Critically low 12.0-16.0 [facility] Comment on above: Performed By: #### C BC #### [facility] [address] [place] [address] Dr. Stevie Torres IG # 0.03 10e3/ul Normal 0.00-0.03 [facility] Comment on above: Performed By: #### C BC #### [facility] [address] [place] [address] Dr. Stevie Torres IG % 0.4 % Normal 0.0-0.5 [facility] Comment on above: Performed By: #### C BC #### [facility] [address] [place] [address] Dr. Stevie Torres LYMPH # 1.7 103/ul Normal 1.2-3.8 [facility] Comment on above: Performed By: #### C BC #### [facility] [address] [place] [address] Dr. Stevie Torres Lymphocytes/100 WBC (Bld) 20.6 % Normal 20.5-60.0 [facility] Comment on above: Performed By: #### C BC #### [facility] [address] [place] [address] Dr. Stevie Torres MANUAL DIFF REQ NO Normal [facility] Comment on above: Performed By: #### C BC #### [facility] [address] [place] [address] Dr. Stevie Torres MCH (RBC) [Entitic mass] 31.1 pg Normal 26.7-34.0 [facility] Comment on above: Performed By: #### C BC #### [facility] [address] [place] [address] Dr. Stevie Torres MCHC (RBC) [Mass/Vol] 32.1 g/dL Normal 29.9-35.2 [facility] Comment on above: Performed By: #### C BC #### [facility] [address] [place] [address] Dr. Stevie Torres MCV (RBC) [Entitic vol] 96.9 fL Normal 81.0-99.0 [facility] Comment on above: Performed By: #### C BC #### [facility] [address] [place] [address] Dr. Stevie Torres MONO # 0.9 103/ul Critically high 0.3-0.8 [facility] Comment on above: Performed By: #### C BC #### [facility] [address] [place] [address] Dr. Stevie Torres Monocytes/100 WBC (Bld) 10.4 % Normal 1.7-12.0 [facility] Comment on above: Performed By: #### C BC #### [facility] [address] [address] [address] Stevie Torres NEUT # 5.5 103/ul Normal 1.4-6.5 [facility] Comment on above: Performed By: #### C BC #### [facility] [address] [address] [address] Stevie Torres Neutrophils/100 WBC (Bld) 65.2 % Normal 43.0-75.0 [facility] Comment on above: Performed By: #### C BC #### [facility] [address] [place] [address] Dr. Stevie Torres Platelet mean volume (Bld) [Entitic vol] 8.8 fL Critically low 9.5-13.5 [facility] Comment on above: Performed By: #### C BC #### [facility] [address] [place] [address] Dr. Stevie Torres PLT 221 103/ul Normal 150-450 [facility] Comment on above: Performed By: #### C BC #### [facility] [address] [place] [address] Dr. Stevie Torres RBC 3.57 106/ul Critically low 4.20-5.40 [facility] Comment on above: Performed By: #### C BC #### [facility] [address] [place] [address] Dr. Stevie Torres WBC 8.4 103/ul Normal 4.0-11.0 [facility] Comment on above: Performed By: #### C BC #### [facility] [address] [place] [address] Dr. Stevie Torres CULTURE URINEon 04-10-2022 CULTURE URINE Culture Observations : LIGHT GROWTH OF MIXED GENITAL MANUEL. NO POTENTIAL PATHOGENS SEEN. Normal [facility] Comment on above: Performed By: #### E RUR, UMICRO #### [facility] [address] [place] [address] Dr. Stevie Torres ER URINE PROFILEon 2 Bilirubin Ql (U) Unable to perform te sting due to color interference. Abnormal NEGATIVE [facility] Comment on above: Performed By: #### E RUR, UMICRO #### [facility] [address] [place] [address] Dr. Stevie Torres Clarity (U) CLEAR Normal CLEAR [facility] Comment on above: Performed By: #### E RUR, UMICRO #### [facility] [address] [place] [address] Dr. Stevie Torres Color (U) DK. ORANGE Abnormal YELLOW [facility] Comment on above: Performed By: #### E RUR, UMICRO #### [facility] [address] [place] [address] Dr. Stevie Torres ERUAHD A micrscopic examina tion will be performed if indicated. Normal [facility] Comment on above: Performed By: #### E RUR, UMICRO #### [facility] [address] [place] [address] Dr. Stevie Torres Glucose Ql (U) Unable to perform te sting due to color interference. Abnormal NEGATIVE [facility] Comment on above: Performed By: #### E RUR, UMICRO #### [facility] [address] [place] [address] Dr. Stevie Torres Hemoglobin Ql (U) Unable to perform te sting due to color interference. Abnormal NEGATIVE [facility] Comment on above: Performed By: #### E RUR, UMICRO #### [facility] [address] [place] [address] Dr. Stevie Torres Ketones Ql (U) Unable to perform te sting due to color interference. Abnormal NEGATIVE [facility] Comment on above: Performed By: #### E RUR, UMICRO #### [facility] [address] [place] [address] Dr. Stevie Torres LEUKOCYTES Unable to perform te sting due to color interference. Abnormal NEGATIVE [facility] Comment on above: Performed By: #### E RUR, UMICRO #### [facility] [address] [place] [address] Dr. Stevie Torres Nitrite Ql (U) Unable to perform te sting due to color interference. Abnormal NEGATIVE [facility] Comment on above: Performed By: #### Sarahi JOELR, UMICRO #### [facility] [address] [place] [address] Dr. Stevie Torres pH Unable to perform te sting due to color interference. Abnormal 5-9 [facility] Comment on above: Performed By: #### Sarahi ORONA, UMICRO #### [facility] [address] [place] [address] Dr. Stevie Torres SPEC GRAVITY 1.020 Normal 1.005-<=1. 025 [facility] Comment on above: Performed By: #### Sarahi ORONA, UMICRO #### [facility] [address] [place] [address] Dr. Stevie Torres UA PROTEIN Unable to perform te sting due to color interference. Normal NEGATIVE/ TRACE [facility] Comment on above: Performed By: #### Sarahi ORONA, UMICRO #### [facility] [address] [place] [address] Dr. Stevie Torres UR MICRO IND INDICATED Normal [facility] Comment on above: Performed By: #### Sarahi ORONA, UMICRO #### [facility] [address] [place] [address] Dr. Stevie Torres UROBILINOGEN Unable to perform te sting due to color interference. Normal 0.2 - 1.0 [facility] Comment on above: Performed By: #### Sarahi ORONA, UMICRO #### [facility] [address] [place] [address] Dr. Stevie Torres PROF CHEM 8 (BAS METB)on Anion gap [Moles/Vol] 6.6 mmol/L Normal [facility] Comment on above: Performed By: #### C BC #### [facility] [address] [place] [address] Dr. Stevie Torres Calcium [Mass/Vol] 8.9 mg/dL Normal 8.5-10.1 [facility] Comment on above: Performed By: #### C BC #### [facility] [address] [place] [address] Dr. Stevie Torres Chloride [Moles/Vol] 97 mmol/L Critically low 98-107 [facility] Comment on above: Performed By: #### C BC #### [facility] [address] [place] [address] Dr. Stevie Torres CO2 [Moles/Vol] 32.3 mmol/L Critically high 21.0-32.0 [facility] Comment on above: Performed By: #### C BC #### [facility] [address] [place] [address] Dr. Stevie Torres Creatinine [Mass/Vol] 1.30 mg/dL Critically high 0.55-1.02 [facility] Comment on above: Performed By: #### C BC #### [facility] [address] [place] [address] Dr. Stevie Torres EGFR-AF TANZANIAN 49 mL/min/1.73m2 Critically low >=60 [facility] Comment on above: Performed By: #### C BC #### [facility] [address] [place] [address] Dr. Stevie Torres EGFR-NON AF TANZANIAN 40 mL/min/1.73m2 Critically low >=60 [facility] Comment on above: Performed By: #### C BC #### [facility] [address] [place] [address] Dr. Stevie Torres Glucose [Mass/Vol] 102 mg/dL Normal 74-106 [facility] Comment on above: Performed By: #### C BC #### [facility] [address] [place] [address] Dr. Stevie Torres Potassium [Moles/Vol] 3.9 mmol/L Normal 3.5-5.1 [facility] Comment on above: Performed By: #### C BC #### [facility] [address] [place] [address] Dr. Stevie Torres Sodium [Moles/Vol] 132 mmol/L Critically low 136-145 [facility] Comment on above: Performed By: #### C BC #### [facility] [address] [place] [address] Dr. Stevie Torres Urea nitrogen [Mass/Vol] 30.0 mg/dL Critically high 7.0-18.0 [facility] Comment on above: Performed By: #### C BC #### [facility] [address] [place] [address] Dr. Stevie Torres Urea nitrogen/Creatinine [Mass ratio] 23.1 mg/mg Normal [facility] Comment on above: Performed By: #### C BC #### [facility] [address] [place] [address] Dr. Stevie Torres URINE MICROSCOPIC ONLYon BACTERIA SMALL Abnormal NONE SEEN [facility] Comment on above: Performed By: #### E RUR, UMICRO #### [facility] [address] [place] [address] Dr. Stevie Torres Bacteria identified Cx Nom (U) INDICATED Normal [facility] Comment on above: Performed By: #### E RUR, UMICRO #### [facility] [address] [place] [address] Dr. Stevie Torres CAST NONE SEEN Normal NONE SEEN [facility] Comment on above: Performed By: #### E RUR, UMICRO #### [facility] [address] [place] [address] Dr. Stevie Torres Crystals LM Nom (Urine sed) NONE SEEN Normal NONE SEEN [facility] Comment on above: Performed By: #### E RUR, UMICRO #### [facility] [address] [place] [address] Dr. Stevie Torres Epithelial cells LM Ql (Urine sed) FEW Abnormal NONE SEEN /RARE [facility] Comment on above: Performed By: #### E RUR, UMICRO #### [facility] [address] [place] [address] Dr. Stevie Torres MUCOUS NONE SEEN Normal NONE SEEN [facility] Comment on above: Performed By: #### E RUR, UMICRO #### [facility] [address] [place] [address] Dr. Stevie Torres RBC 10-20 Abnormal 0-2 [facility] Comment on above: Performed By: #### E RUR, UMICRO #### [facility] [address] [address] [address] Stevie Torres WBC 2-5 Abnormal NONE SEEN [facility] Comment on above: Performed By: #### TAMMIE LOVELL #### [facility] [address] [address] [address] 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 She stated in a previous phone call that the last batch of catheters were stolen out of her car. Reached out to [facility] medical to see what needs to take place for catheters to be delivered to patient at this time. Patients son will be coming to [facility] to pickle sorter sample catheters, until patient receives hers again. [...] Status:Closed by ADRIANE FISCHER on 04/01/22 Normal [facility] DRUG SCREEN RAPID (URINE)on 02-18-2022 AMP Negative Normal NEGATIVE [facility] Comment on above: Performed By: #### TAMMIE LOVELL #### [facility] [address] [place] [address] Dr. Stevie Torres BAR Negative Normal NEGATIVE [facility] Comment on above: Performed By: #### TAMMIE LOVELL #### [facility] [address] [address] [address] Stevie Torres BUP Negative Normal NEGATIVE [facility] Comment on above: Performed By: #### TAMMIE LOVELL #### [facility] [address] [address] [address] Stevie Torres BZO Positive Abnormal NEGATIVE [facility] Comment on above: Performed By: #### TAMMIE LOVELL #### [facility] [address] [place] [address] Dr. Stevie Torres JOHN Negative Normal NEGATIVE [facility] Comment on above: Performed By: #### FRITZ LOVELLRO #### [facility] [address] [place] [address] Dr. Stevie Torres CUT-OFFS SEE BELOW Normal [facility] Comment on above: Result Comment: AMP (Amphetamine): 500ng/mL, BAR (Barbituates): 200 ng/mL, BZO (Benzodiazepines): 150 ng/mL, BUP (Buprenorphine): 10 ng/mL, JOHN (Cocaine): 150 ng/mL, mAMP (Methamphetamine): 500 ng/mL, MTD (Methadone): 200 ng/mL, OPI (Opiates): 100 ng/mL, OXY (Oxycodone): 100 ng/mL, PCP (Phencyclidine): 25 ng/mL, PPX (Propoxyphene): 300 ng/mL, THC (Cannabinoids): 50 ng/mL, TCA (Trycyclic Antidepressants): 300 ng/mL Performed By: #### TAMMIE LOVELL #### [facility] [address] [place] [address] Dr. Stevie Torres DRUG CUT HEADER DRUG CLASS TEST SYST EM CUT-OFF CONCENTRATIONS ARE FOLLOWS: Normal [facility] Comment on above: Performed By: #### TAMMIE LOVELL #### [facility] [address] [place] [address] Dr. Stevie Torres mAMP Negative Normal NEGATIVE [facility] Comment on above: Performed By: #### FRITZ LOVELLRO #### [facility] [address] [place] [address] Dr. Stevie Torres MTD Negative Normal NEGATIVE [facility] Comment on above: Performed By: #### FRITZ LOVELLRO #### [facility] [address] [place] [address] Dr. Stevie Torres OPI Positive Abnormal NEGATIVE [facility] Comment on above: Performed By: #### TAMMIE LOVELL #### [facility] [address] [place] [address] Dr. Stevie Torres OXY Negative Normal NEGATIVE [facility] Comment on above: Performed By: #### MARY LOVELLICRO #### [facility] [address] [address] [address] Stevie Torres PCP Negative Normal NEGATIVE [facility] Comment on above: Performed By: #### E RUR, UMICRO #### [facility] [address] [address] [address] Stevie Torres PPX Negative Normal NEGATIVE [facility] Comment on above: Performed By: #### E RUR, UMICRO #### [facility] [address] [address] [address] Stevie Torres TCA Negative Normal NEGATIVE [facility] Comment on above: Performed By: #### E RUYesenia UMICRO #### [facility] [address] [place] [address] Dr. Stevie Torres THC Negative Normal NEGATIVE [facility] Comment on above: Performed By: #### E ADWOA UMICRO #### [facility] [address] [place] [address] Dr. Stevie Torres CHEMISTRYOrdered By: SYSTEM SYSTEM [...] 59 mL/min/1.73 m2 Normal >=59mL/min /1.73 m2 [facility] Chem S GFR/1.73 sq M.predicted among non-blacks MDRD (S/P/Bld) [Vol rate/Area] 49 mL/min/1.73 m2 Low >=59mL/min /1.73 m2 [facility] Chem S Globulin (S) [Mass/Vol] 2.9 g/dL Normal 1.4 - 4.0 gm/dL [facility] Glucose [Mass/Vol] 112 mg/dL Normal 55 - 199 mg/dL [facility] Potassium [Moles/Vol] 4.5 mmol/L Normal 3.5 [...] 38.3 % Normal 34.0 - 46.0 % [facility] Hemoglobin (Bld) [Mass/Vol] 12.4 g/dL Normal 12.0 - 16.0 gm/dL [facility] MCH (RBC) [Entitic mass] 29.1 pg Normal 27.0 - 34.0 pg [facility] MCHC (RBC) [Mass/Vol] 32.3 g/dL Normal 31.4 - 36.0 gm/dL [facility] MCV (RBC) [Entitic vol] 89.9 fL Normal 80.0 - 100.0 fL [facility] Platelet mean volume (Bld) [Entitic vol] 7.1 fL Normal 6.4 - 10.8 fL [facility] Platelets (Bld) [#/Vol] 244.0 E9/L Normal 150.0 - 500.0 E9/L [facility] RBC (Bld) [#/Vol] 4.3 E12/L Normal 4.3 - 5.9 E12/L [facility] WBC corrected for nucl RBC Auto (Bld) [#/Vol] 7.9 E9/L Normal 4.0 - 11.0 E9/L [facility] HemeAutoSS Reference Laboratory Testing Ordered By: Klaudia Painter on 02-17-2022 Test Code 0000 Invalid Interpretation Code [facility] SendOuts Test Name urine drug scre Invalid Interpretation Code [facility] SendOuts URINALYSISOrdered By: Maggie Matthews on 02-13-2022 Bilirubin Ql (U) Negative (02/13/22 12:06 PM) Normal Negative [facility] UA Auto SS Clarity (U) Clear (02/13/22 12:06 PM) Normal Clear [facility] UA Auto SS Color (U) Yellow (02/13/22 12:06 PM) Normal Yellow [facility] UA Auto SS Epithelial cells.squamous LM.HPF (Urine sed) [#/Area] 0-2 /HPF Normal 0-2/HPF [facility] Auto SS Glucose Test strip (U) [Mass/Vol] Negative (02/13/22 12:06 PM) Normal Negative [facility] UA Auto SS Hemoglobin Ql (U) Negative (02/13/22 12:06 PM) Normal Negative [facility] UA Auto SS Ketones (U) [Mass/Vol] Negative (02/13/22 12:06 PM) Normal Negative [facility] UA Auto SS Wickes.plasma/Wickes .RBC (Bld) [Mass ratio] 0-3 /HPF Normal [...] Desc Clean Catch (02/13/22 12:06 PM) Normal [facility] Auto SS Urobilinogen Qn (U) 0.2995248 {Rolan'U}/dL Normal 0.0 - 1.0 EU/dL [facility] UA Auto SS WBC Auto Ql (U) Negative (02/13/22 12:06 PM) Normal Negative [facility] UA Auto SS WBC LM.HPF (Urine sed) [#/Area] 0-5 /HPF Normal 0-5/HPF [facility] UA Auto SS CNPNon 02-11-2022 CNPN Telephone (UROLAV) -- MAEGAN DYE ([id number]) 1950 F Date Time Provider Department 02/11/22 QUYNH HERNANDEZ UROLAV During your visit today, we recorded the following information about you: Sergio Guevara RN 02/11/2022 4:33 PM Signed Patient calling States she needs more Self Catheters Gets them from [phone] (?) States she used all of the Self Cath Catheters that she received from nurse office training Not sure how to get more Self Catheters, etc? Requesting call back maral please Call patient CELL [phone] Leave Detailed messages Anabelle Vasquez RN 02/11/2022 4:57 PM Signed Spoke to patient. She will contact [address] [place] [address], has bright green flyer with the number on it to call if she hasn't been contacted. We reached out to rep from [address] [place] [address]. Told patient she can come into office for more catheters. Her son is not able to come in for her to get them. Will touch base with patient tomorrow. Anabelle Fischer LPN 02/12/2022 11:41 AM Signed Rep from [address] [place] [address] stated that she will reach out to the patient and get her sent catheters at this time. No further action is required at this time. 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 PVR via scanner: 278ml Double void, with PVR of 250ml Patient taught how to do ISC successfully. Order placed through [address] [place] [address]. Orders to ISC after voiding three times daily and to follow up with [employer] in 3 months. Carried out orders of [...] Visit completed when applicable. Adriane Fischer LPN Viridiana León 02/07/2022 2:11 PM Signed CYSTOSCOPY Indications: Seen [...] Yes NO (more content not included)... Normal [facility] CHEMISTRYOrdered By: SYSTEM SYSTEM on 02-05-2022 Sodium [Moles/Vol] 132 mmol/L Low 135 - 145 mmol/L [facility] Sodium [Moles/Vol] 132 mmol/L Low 135 - 145 mmol/L [facility] CHEMISTRYOrdered By: SYSTEM SYSTEM on 02-04-2022 [...] 1.1 mg/dL Normal 0.5 - 1.3 mg/dL [facility] Remisol GFR/1.73 sq M.predicted among blacks MDRD (S/P/Bld) [Vol rate/Area] 59 mL/min/1.73 m2 Normal >=59mL/min /1.73 m2 [facility] Chem S GFR/1.73 sq M.predicted among non-blacks MDRD (S/P/Bld) [Vol rate/Area] 49 mL/min/1.73 m2 Low >=59mL/min /1.73 m2 [facility] Chem S Glucose [Mass/Vol] 104 mg/dL Normal 55 - 199 mg/dL [facility] Magnesium [Mass/Vol] 2.1 mg/dL Normal 1.3 - 2 .4 mg/dL [facility] Potassium [Moles/Vol] 4.5 mmol/L Normal 3.5 - 5.3 mmol/L [facility] Urea nitrogen [Mass/Vol] 10 mg/dL Normal 5 - 21 mg/dL [facility] Urea nitrogen/Creatinine [Mass ratio] 9 mg/mg Low 10 - 20 [facility] CHEMISTRYOrdered By: SYSTEM SYSTEM on 02-03-2022 Anion gap [Moles/Vol] 11 mmol/L Normal 6 - 16 mEq/L [facility] Calcium [Mass/Vol] 8.8 mg/dL Low 8.9 - 11. 1 mg/dL [facility] Chloride [Moles/Vol] 87 mmol/L Low 101 [...] 44 mL/min/1.73 m2 Low >=59mL/min /1.73 m2 [facility] Chem S Glucose [Mass/Vol] 132 mg/dL Normal [...] 53 mL/min/1.73 m2 Low >=59mL/min /1.73 m2 [facility] Chem S GFR/1.73 sq M.predicted among non-blacks MDRD (S/P/Bld) [Vol rate/Area] 44 mL/min/1.73 m2 Low >=59mL/min /1.73 m2 [facility] Chem S Globulin (S) [Mass/Vol] 2.7 g/dL Normal 1.4 - 4.0 gm/dL [facility] Glucose [Mass/Vol] 118 mg/dL Normal 55 - 199 mg/dL [facility] Lipase [Catalytic activity/Vol] 34 U/L Normal 13 - 58 unit/L [facility] Potassium [Moles/Vol] 4.9 mmol/L Normal 3.5 - 5.3 mmol/L [facility] Protein [Mass/Vol] 6.3 g/dL Normal 6.0 - 7.8 gm/dL [facility] Urea nitrogen [Mass/Vol] 9 mg/dL Normal 5 - 21 mg/dL [facility] Urea nitrogen/Creatinine [Mass ratio] 8 mg/mg Low 10 - 20 [facility] CHEMISTRYOrdered By: Darlin [place] on 02-03-2022 Osmolality [Osmolality] 256 mosm/kg Low 275 - 295 mOsm/kg [facility] Man UA SS U Osmolality 125 mOsm/kg Normal 50 - 1400 mOsm/kg [facility] Man UA SS CHEMISTRYOrdered By: Lilibeth Farrell on 02-03-2022 Potassium (U) [Moles/Vol] 8.9 mmol/L Invalid Interpretation Code [facility] Remisol Sodium (U) [Moles/Vol] 30 mmol/L Invalid Interpretation Code [facility] Remisol HEMATOLOGYOrdered By: SYSTEM SYSTEM on 02-03-2022 Basophils/100 WBC (Bld) 1.3 % Normal 0.0 - 2.0 % [facility] Basophils/Leukocytes Auto (Bld) [Pure # fraction] 0.1 E9/L Normal 0.0 - 0.2 E9/L [facility] Eosinophils/100 WBC (Bld) 1.4 % Normal 0.0 - 8.0 % [facility] Eosinophils/Leukocytes Auto (Bld) [Pure # fraction] 0.1 E9/L Normal 0.0 - 0.5 E9/L [facility] Lymphocytes/100 WBC (Bld) 21.5 % Normal 14.0 - 50.0 % [facility] Lymphocytes/Leukocytes Auto (Bld) [Pure # fraction] 1.1 E9/L Normal 1.0 - 4.0 E9/L [facility] Monocytes/100 WBC (Bld) 11.2 % Normal 4.0 - 14.0 % [facility] Monocytes/Leukocytes Auto (Bld) [Pure # fraction] 0.6 E9/L Normal 0.2 - 1.0 E9/L [facility] Neutrophils/100 WBC (Bld) 64.6 % Normal 36.0 - 75.0 % [facility] Neutrophils/Leukocytes Auto (Bld) [Pure # fraction] 3.2 E9/L Normal 2.0 - 7.5 E9/L [facility] HEMATOLOGYOrdered By: Jovanna Harding on 02-03-2022 Erythrocyte distribution width (RBC) [Ratio] 13.5 % Normal 10.9 - 14.2 % [facility] Hematocrit (Bld) [Volume fraction] 36.6 % Normal 34.0 - 46.0 % [facility] Hemoglobin (Bld) [Mass/Vol] 12.0 g/dL Normal 12.0 - 16.0 gm/dL [facility] MCH (RBC) [Entitic mass] 29.2 pg [...] AM) Normal Negative [facility] UA Auto SS Wickes.plasma/Wickes .RBC (Bld) [Mass ratio] 0-3 /HPF Normal [...] [facility] UA Auto SS Urobilinogen Qn (U) 0.3027838 {Rolan'U}/dL Normal 0.0 - 1.0 EU/dL [facility] [...] PM) Normal Negative [facility] UA Auto SS Wickes.plasma/Wickes .RBC (Bld) [Mass ratio] 0-3 /HPF Normal [...] Desc Clean Catch (01/30/22 7:22 PM) Normal [facility] UA Auto SS Urobilinogen Qn (U) 0.8669383 {Rolan'U}/dL Normal 0.0 - 1.0 EU/dL [facility] [...] [Mass/Vol] Negative (01/14/22 10:10 AM) Normal Negative [facility] UA Auto SS Hemoglobin Ql (U) 3+ *ABN* (01/14/22 10:10 AM) Invalid Interpretation Code Negative [facility] UA Auto SS Ketones (U) [Mass/Vol] Negative (01/14/22 10:10 AM) Normal Negative [facility] UA Auto SS Wickes.plasma/Wickes .RBC (Bld) [Mass ratio] 4-20 /HPF Normal 0-3/HPF [facility] UA Auto SS Mucus Ql (Urine sed) Trace (01/14/22 10:10 AM) Normal [facility] UA Auto SS Nitrite Ql (U) Negative (01/14/22 10:10 AM) Normal Negative [facility] UA Auto SS pH (U) 7.0 *NA* (01/14/22 10:10 AM) Invalid Interpretation Code 5.0 - 9.0 [facility] UA Auto SS Protein (U) [Mass/Vol] Negative (01/14/22 10:10 AM) Normal Negative [facility] UA Auto SS Specific gravity (U) [Rel density] <=1.005 *NA* (01/14/22 10:10 AM) Invalid Interpretation Code 1.005 - 1.030 [facility] UA Auto SS UA Spec Desc Catheter (01/14/22 10:10 AM) Normal [facility] UA Auto SS Urobilinogen Qn (U) 0.2998423 {Rolan'U}/dL Normal 0.0 - 1.0 EU/dL [facility] UA Auto SS WBC Auto Ql (U) 3+ *ABN* (01/14/22 10:10 AM) Invalid Interpretation Code Negative [facility] UA Auto SS WBC LM.HPF (Urine sed) [#/Area] 6-15 /HPF Invalid Interpretation Code 0-5/HPF [facility] UA Auto SS CHEMISTRYOrdered By: SYSTEM SYSTEM on 12-17-2021 Anion gap [Moles/Vol] 9 mmol/L Normal 6 - 16 mEq/L [facility] Calcium [Mass/Vol] 8.9 mg/dL Normal 8.9 - 11. 1 mg/dL [facility] Chloride [Moles/Vol] 95 mmol/L Low 101 - 1 11 mmol/L [facility] CO2 [Moles/Vol] 29 mmol/L Normal 21 - 31 mmol/L [facility] Creatinine [Mass/Vol] 1.0 mg/dL Normal 0.5 - 1.3 mg/dL [facility] Remisol GFR/1.73 sq M.predicted among blacks MDRD (S/P/Bld) [Vol rate/Area] mL/min/1.73 m2 Normal >=59mL/min /1.73 m2 [facility] Chem S GFR/1.73 sq M.predicted among non-blacks MDRD (S/P/Bld) [Vol rate/Area] 54 mL/min/1.73 m2 Low >=59mL/min /1.73 m2 [facility] Chem S Glucose [Mass/Vol] 102 mg/dL Normal 55 - 199 mg/dL FT [...] 70.4 % Normal 36.0 - 75.0 % [facility] [...] AM) Normal Negative [facility] UA Auto SS Wickes.plasma/Wickes .RBC (Bld) [Mass ratio] 0-3 /HPF Normal [...] [facility] UA Auto SS Urobilinogen Qn (U) 0.2975799 {Rolan'U}/dL Normal 0.0 - 1.0 EU/dL [facility] [...] PM) Normal Negative [facility] UA Auto SS Wickes.plasma/Wickes .RBC (Bld) [Mass ratio] 0-3 /HPF Normal [...] [facility] UA Auto SS Urobilinogen Qn (U) 0.3179477 {Rolan'U}/dL Normal 0.0 - 1.0 EU/dL [facility] [...] [Mass/Vol] Negative (12/14/21 9:08 AM) Normal Negative [facility] UA Auto SS Wickes.plasma/Wickes .RBC (Bld) [Mass ratio] 0-3 /HPF Normal 0-3/HPF [facility] UA Auto SS Nitrite Ql (U) Negative (12/14/21 9:08 AM) Normal Negative [facility] UA Auto SS pH (U) 7.5 *NA* (12/14/21 9:08 AM) Invalid Interpretation Code 5.0 - 9.0 [facility] UA Auto SS Protein (U) [Mass/Vol] Negative (12/14/21 9:08 AM) Normal Negative [facility] UA Auto SS Specific gravity (U) [Rel density] 1.015 *NA* (12/14/21 9:08 AM) Invalid Interpretation Code 1.005 - 1.030 [facility] UA Auto SS UA Spec Desc Clean Catch (12/14/21 9:08 AM) Normal [facility] UA Auto SS Urobilinogen Qn (U) 0.5449186 {Rolan'U}/dL Normal 0.0 - 1.0 EU/dL [facility] UA Auto SS WBC Auto Ql (U) Negative (12/14/21 9:08 AM) Normal Negative [facility] UA Auto SS WBC LM.HPF (Urine sed) [#/Area] 0-5 /HPF Normal 0-5/HPF [facility] UA Auto SS URINE CULTUREon 12-06-2021 Bacteria identified Cx Nom (U) No growth (<1,000 CFU/ml) [facility] Urinalysis complete panel (U )on 12-05-2021 Bilirubin Ql (U) Negative Negative [facility] Clarity (Unsp spec) Clear Clear [facility] Color (U) Dark Latasha Abnormal Yellow [facility] Glucose Test strip (U) [Mass/Vol] Negative Negative [facility] Hemoglobin Ql (U) Negative Negative [facility] Ketones Ql (U) Negative Negative [facility] Leukocyte esterase Test strip Ql (U) Negative Negative [facility] Nitrite Ql (U) Positive Abnormal Negative [facility] pH (U) 7.0 [pH] 5.0 - 8.0 [facility] Protein (U) [Mass/Vol] Negative Negative [facility] RBC LM.HPF (Urine sed) [#/Area] 0-3 /HPF 0-3 /[facility]PF [facility] Specific gravity (U) [Rel density] 1.006 1.005 - 1.030 [facility] Urobilinogen Ql (U) 2+ Abnormal Negative [facility] WBC LM.HPF (Urine sed) [#/Area] 0-5 /HPF 0-5 /HPF [facility] CULTURE URINEon 12-03-2021 CULTURE URINE Culture Observations : NO GROWTH. Normal [facility] Comment on above: Performed By: #### TAMMIE LOVELL #### [facility] [address] [place] [address] Dr. Stevie Torres ER URINE PROFILEon Bilirubin Ql (U) Negative Normal NEGATIVE [facility] Comment on above: Performed By: #### TAMMIE LOVELL #### [facility] [address] [place] [address] Dr. Stevie Torres Clarity (U) CLEAR Normal CLEAR [facility] Comment on above: Performed By: #### FRITZ LOVELLRO #### [facility] [address] [place] [address] Dr. Stevie Torres Color (U) DK. ORANGE Abnormal YELLOW [facility] Comment on above: Performed By: #### TAMMIE LOVELL #### [facility] [address] [place] [address] Dr. Stevie DUNN A micrscopic examina tion will be performed if indicated. Normal [facility] Comment on above: Performed By: #### TAMMIE LOVELL #### [facility] [address] [place] [address] Dr. Stevie Torres Glucose Ql (U) 100 mg/dl Abnormal NEGATIVE [facility] Comment on above: Performed By: #### TAMMIE LOVELL #### [facility] [address] [place] [address] Dr. Stevie Torres Hemoglobin Ql (U) SMALL Abnormal NEGATIVE [facility] Comment on above: Performed By: #### FRITZ LOVELLRO #### [facility] [address] [place] [address] Dr. Stevie Torres Ketones Ql (U) Negative Normal NEGATIVE [facility] Comment on above: Performed By: #### FRITZ LOVELLRO #### [facility] [address] [place] [address] Dr. Stevie Torres LEUKOCYTES Negative Normal NEGATIVE [facility] Comment on above: Performed By: #### MARY LOVELLICRO #### [facility] [address] [place] [address] Dr. Stevie Torres Nitrite Ql (U) Positive Abnormal NEGATIVE [facility] Comment on above: Performed By: #### MARY LOVELLICRO #### [facility] [address] [place] [address] Dr. Stevie Torres pH (U) 7.0 [pH] Normal 5-9 [facility] Comment on above: Performed By: #### FRITZ LOVELLRO #### [facility] [address] [place] [address] Dr. Stevie Torres SPEC GRAVITY <=1.005 Abnormal 1.005-<=1. 025 [facility] Comment on above: Performed By: #### MARY LOVELLICRO #### [facility] [address] [place] [address] Dr. Stevie Torres UA PROTEIN Negative Normal NEGATIVE/ TRACE [facility] Comment on above: Performed By: #### FRITZ LOVELLRO #### [facility] [address] [place] [address] Dr. Stevie Torres UR MICRO IND INDICATED Normal [facility] Comment on above: Performed By: #### FRITZ LOVELLRO #### [facility] [address] [place] [address] Dr. Stevie Torres Urobilinogen Qn (U) 1.0 {Rolan'U}/dL Normal 0.2 - 1. 0 [facility] Comment on above: Performed By: #### Sarahi ORONA UMICRO #### [facility] [address] [place] [address] Dr. Stevie Torres URINE MICROSCOPIC ONLYon BACTERIA TRACE Abnormal NONE SEEN [facility] Comment on above: Performed By: #### E RUR, UMICRO #### [facility] [address] [place] [address] Dr. Stevie Torres Bacteria identified Cx Nom (U) INDICATED Normal [facility] Comment on above: Performed By: #### Sarahi ORONA UMICRO #### [facility] [address] [place] [address] Dr. Stevie Torres CAST NONE SEEN Normal NONE SEEN [facility] Comment on above: Performed By: #### Sarahi ORONA UMICRO #### [facility] [address] [place] [address] Dr. Stevie Torres Crystals LM Nom (Urine sed) NONE SEEN Normal NONE SEEN [facility] Comment on above: Performed By: #### Sarahi ORONA UMICRO #### [facility] [address] [place] [address] Dr. Stevie Torres Epithelial cells LM Ql (Urine sed) FEW Abnormal NONE SEEN /RARE [facility] Comment on above: Performed By: #### Sarahi ORONA UMICRO #### [facility] [address] [place] [address] Dr. Stevie Torres MUCOUS NONE SEEN Normal NONE SEEN [facility] Comment on above: Performed By: #### Sarahi ORONA UMICRO #### [facility] [address] [place] [address] Dr. Stevie Torres RBC 0-2 Normal 0-2 [facility] Comment on above: Performed By: #### Sarahi ORONA UMICRO #### [facility] [address] [place] [address] Dr. Stevie Torres WBC NONE SEEN Normal NONE SEEN [facility] Comment on above: Performed By: #### Sarahi ORONA UMICRO #### [facility] [address] [place] [address] Dr. Stevie Torres URINALYSISOrdered By: Kris will on 11-21-2021 Bilirubin Ql (U) Negative (11/21/21 8:15 PM) Normal Negative [facility] UA Auto SS Clarity (U) Clear (11/21/21 8:15 PM) Normal Clear [facility] UA Auto SS Color (U) [place] *ABN* (11/21/21 8:15 PM) Invalid Interpretation Code [...] PM) Normal Negative [facility] UA Auto SS Wickes.plasma/Wickes .RBC (Bld) [Mass ratio] 0-3 /HPF Normal [...] [facility] UA Auto SS Urobilinogen Qn (U) 4.6988714 {Rolan'U}/dL Inv alid Interpretation Code 0.0 - [...] Clear [facility] UA Auto SS Color (U) [place] *ABN* (11/16/21 3:42 PM) Invalid Interpretation Code [...] PM) Normal Negative [facility] UA Auto SS Wickes.plasma/Wickes .RBC (Bld) [Mass ratio] 0-3 /HPF Normal [...] Desc Clean Catch (11/16/21 3:42 PM) Normal [facility] UA Auto SS Urobilinogen Qn (U) 1.7352807 {Rolan'U}/dL Normal 0.0 - 1.0 EU/dL [facility] UA Auto SS WBC Auto Ql (U) 1+ *ABN* (11/16/21 3:42 PM) Invalid Interpretation Code Negative [facility] UA Auto SS WBC LM.HPF (Urine sed) [#/Area] 0-5 /HPF Normal 0-5/HPF [facility] UA Auto SS CHEMISTRYOrdered By: SYSTEM SYSTEM on 11-08-2021 Anion gap [Moles/Vol] 13 mmol/L Normal 6 - 16 mEq/L [facility] Remisol Calcium [Mass/Vol] 9.3 mg/dL Normal 8.9 - 11. 1 mg/dL [facility] Remisol Chloride [Moles/Vol] 92 mmol/L Low 101 - 1 11 mmol/L [facility] Remisol CO2 [Moles/Vol] 27 mmol/L Normal 21 - 31 mmol/L [facility] Remisol Creatinine [Mass/Vol] 1.2 mg/dL Normal 0.5 - 1.3 mg/dL [facility] Remisol GFR/1.73 sq M.predicted among blacks MDRD (S/P/Bld) [Vol rate/Area] 53 mL/min/1.73 m2 Low >=59mL/min /1.73 m2 [facility] Chem S GFR/1.73 sq M.predicted among non-blacks MDRD (S/P/Bld) [Vol rate/Area] 44 mL/min/1.73 m2 Low >=59mL/min /1.73 m2 [facility] Chem S Glucose [Mass/Vol] 118 mg/dL Normal 55 - 199 mg/dL [facility] Remisol Potassium [Moles/Vol] 4.0 mmol/L Normal 3.5 - 5.3 mmol/L [facility] Remisol Sodium [Moles/Vol] 128 mmol/L Low 135 - 145 mmol/L [facility] Remisol Troponin I.cardiac [Mass/Vol] pg/mL Low 10.10 - 27.10 pg/mL [facility] Remisol Urea nitrogen [Mass/Vol] 9 mg/dL Normal 5 - 21 mg/dL [facility] Remisol Urea nitrogen/Creatinine [Mass ratio] 8 mg/mg Low 10 - 20 [facility] Remisol CHEMISTRYOrdered By: Lab ROP User on 11-08-2021 Glucose [Mass/Vol] 106 mg/dL High 55 - 99 mg/dL [facility] POC Subsection Comment on above: Result Comment: Christina perea RN/ POC Device SN [id number] Invalid Interpretation Code [facility] POC Subsection POC User ID [id number] Invalid Interpretation Code [facility] POC Subsection POC Username EMETERIO STOCK Invalid Interpretation Code [facility] POC Subsection HEMATOLOGYOrdered By: SYSTEM SYSTEM on [...] Clear [facility] UA Auto SS Color (U) [place] *ABN* (11/08/21 5:33 PM) Invalid Interpretation Code [...] PM) Normal Negative [facility] UA Auto SS Wickes.plasma/Wickes .RBC (Bld) [Mass ratio] 0-3 /HPF Normal [...] [facility] UA Auto SS Urobilinogen Qn (U) 2.2947992 {Rolan'U}/dL Inv alid Interpretation Code 0.0 - [...] PM) Normal Negative [facility] UA Auto SS Wickes.plasma/Wickes .RBC (Bld) [Mass ratio] 4-20 /HPF Normal [...] [facility] UA Auto SS Urobilinogen Qn (U) 0.2037956 {Rolan'U}/dL Normal 0.0 - 1.0 EU/dL [facility] [...] AM) Normal Negative [facility] UA Auto SS Wickes.plasma/Wickes .RBC (Bld) [Mass ratio] 0-3 /HPF Normal [...] AM) Invalid Interpretation Code 1.005 - 1.030 [facility] UA Auto SS UA Spec Desc Clean Catch (10/27/21 10:44 AM) Normal [facility] UA Auto SS Urobilinogen Qn (U) 0.3390167 {Rolan'U}/dL Normal 0.0 - 1.0 EU/dL [facility] UA Auto SS WBC Auto Ql (U) Trace *ABN* (10/27/21 10:44 AM) Invalid Interpretation Code Negative [facility] UA Auto SS WBC LM.HPF (Urine sed) [#/Area] 0-5 /HPF Normal 0-5/HPF [facility] UA Auto SS CHEMISTRYOrdered By: SYSTEM SYSTEM on 10-23-2021 Anion gap [Moles/Vol] 11 mmol/L Normal 6 - 16 mEq/L [facility] Remisol Calcium [Mass/Vol] 9.1 mg/dL Normal 8.9 - 11. 1 mg/dL [facility] Remisol Chloride [Moles/Vol] 100 mmol/L Low 101 - 1 11 mmol/L [facility] Remisol CO2 [Moles/Vol] 29 mmol/L Normal 21 - 31 mmol/L [facility] Remisol Creatinine [Mass/Vol] 1.2 mg/dL Normal 0.5 - 1.3 mg/dL [facility] Remisol GFR/1.73 sq M.predicted among blacks MDRD (S/P/Bld) [Vol rate/Area] 53 mL/min/1.73 m2 Low >=59mL/min /1.73 m2 [facility] Chem S GFR/1.73 sq M.predicted among non-blacks MDRD (S/P/Bld) [Vol rate/Area] 44 mL/min/1.73 m2 Low >=59mL/min /1.73 m2 [facility] Chem S Glucose [Mass/Vol] 98 mg/dL Normal 55 - 199 mg/dL [facility] Remisol Potassium [Moles/Vol] 4.1 mmol/L Normal 3.5 - 5.3 mmol/L [facility] Remisol Sodium [Moles/Vol] 136 mmol/L Normal 135 - 145 mmol/L [facility] Remisol Troponin I.cardiac [Mass/Vol] 3.10 pg/mL Low [...] 101 - 1 11 mmol/L [facility] Remisol CK [Catalytic activity/Vol] 110 [iU]/d Normal 14 - 261 Int._Unit/ L [facility] Remisol CO2 [Moles/Vol] 25 mmol/L Normal 21 - 31 mmol/L [facility] Remisol Creatinine [Mass/Vol] 1.2 mg/dL Normal 0.5 - 1.3 mg/dL [facility] Remisol GFR/1.73 sq M.predicted among blacks MDRD (S/P/Bld) [Vol rate/Area] 53 mL/min/1.73 m2 Low >=59mL/min /1.73 m2 [facility] Chem S GFR/1.73 sq M.predicted among non-blacks MDRD (S/P/Bld) [Vol rate/Area] 44 mL/min/1.73 m2 Low >=59mL/min /1.73 m2 [facility] Chem S Glucose [Mass/Vol] 123 mg/dL Normal 55 - 199 mg/dL [facility] Remisol Magnesium [Mass/Vol] 2.2 mg/dL Normal 1.3 - 2 .4 mg/dL [facility] Remisol Potassium [Moles/Vol] 3.6 mmol/L Normal 3.5 - 5.3 mmol/L [facility] Remisol Sodium [Moles/Vol] 130 mmol/L Low 135 - 145 mmol/L [facility] Remisol Troponin I.cardiac [Mass/Vol] 2.90 pg/mL Low 10.10 - 27.10 pg/mL [facility] Remisol Urea nitrogen [Mass/Vol] 9 mg/dL Normal 5 - 21 mg/dL [facility] Remisol Urea nitrogen/Creatinine [Mass ratio] 8 mg/mg Low 10 - 20 [facility] Remisol CHEMISTRYOrdered By: Lab ROP User on 10-23-2021 Glucose [Mass/Vol] 111 mg/dL High 55 - 99 mg/dL [facility] POC Subsection Comment on above: Result Comment: Aleida steven Meter POC Device SN [id number] Invalid Interpretation Code FT POC Subsection POC User ID [id number] Invalid Interpretation Code FT POC Subsection POC Username VALENTINO GREGORIO Invalid Interpretation Code [facility] POC Subsection COAGULATIONOrdered By: Luis Trotter on 10-23-2021 aPTT Coag (PPP) [Time] 31.4 s Normal 25.1 - 36.5 second(s) [facility] Auto Coag INR Coag (PPP) [Relative time] 1.0 {INR} Invalid Interpretation Code [facility] Auto Coag PT Coag (PPP) [Time] 11.4 s Normal 10.2 - 12.9 second(s) [facility] Auto Coag aPTT Coag (PPP) [Time] 31.7 s Normal 25.1 - 36.5 second(s) [facility] Auto Coag INR Coag (PPP) [Relative time] 1.0 {INR} Invalid Interpretation Code [facility] Auto Coag PT Coag (PPP) [Time] 11.6 s Normal 10.2 - 12.9 second(s) [facility] Auto Coag HEMATOLOGYOrdered By: SYSTEM SYSTEM on [...] 8.0 E9/L Normal 4.0 - 11.0 E9/L FT HemeAutoSS URINALYSISOrdered By: Luis Trotter on 10-23-2021 Bacteria LM Ql (Urine sed) 2+ /HPF Invalid Interpretation Code Trace/HPF [facility] UA Auto SS Bilirubin Ql (U) 1+ *ABN* (10/23/21 7:35 PM) Invalid Interpretation Code Negative [facility] UA Auto SS Clarity (U) [place] Invalid Interpretation Code [facility] UA Auto SS Color (U) [place] *ABN* (10/23/21 7:35 PM) Invalid Interpretation Code [...] PM) Normal Negative [facility] UA Auto SS Wickes.plasma/Wickes .RBC (Bld) [Mass ratio] 0-3 /HPF Normal [...] [facility] UA Auto SS Urobilinogen Qn (U) 4.5347982 {Rolan'U}/dL Inv alid Interpretation Code 0.0 - [...] AM) Normal Negative [facility] UA Auto SS Wickes.plasma/Wickes .RBC (Bld) [Mass ratio] 0-3 /HPF Normal [...] [facility] UA Auto SS Urobilinogen Qn (U) 0.5249111 {Rolan'U}/dL Normal 0.0 - 1.0 EU/dL [facility] [...] PM) Normal Negative [facility] UA Auto SS Wickes.plasma/Wickes .RBC (Bld) [Mass ratio] 0-3 /HPF Normal [...] Spec Desc Catheter (10/03/21 10:33 PM) Normal [facility] UA Auto SS Urobilinogen Qn (U) 0.8681375 {Rolan'U}/dL Normal 0.0 - 1.0 EU/dL [facility] UA Auto SS WBC Auto Ql (U) Trace *ABN* (10/03/21 10:33 PM) Invalid Interpretation Code Negative [facility] UA Auto SS WBC LM.HPF (Urine sed) [#/Area] 0-5 /HPF Normal 0-5/HPF [facility] UA Auto SS URINALYSIS, REFLEX MICROSCOP ICon 10-02-2021 Bilirubin Ql (U) Negative Negative [facility] Clarity (Unsp spec) Clear Clear [facility] Color (U) Colorless Yellow [facility] Glucose Test strip (U) [Mass/Vol] Negative Negative [facility] Hemoglobin Ql (U) Negative Negative [facility] Ketones Ql (U) Negative Negative [facility] Leukocyte esterase Test strip Ql (U) Negative Negative [facility] Nitrite Ql (U) Negative Negative [facility] pH (U) 7.0 [pH] 5.0 - 8.0 [facility] Protein (U) [Mass/Vol] Negative Negative [facility] Specific gravity (U) [Rel density] 1.005 1.005 - 1.030 [facility] Urobilinogen Ql (U) Negative Negative [facility] URINALYSISOrdered By: Nicolasa fletcher on 09-30-2021 Bilirubin Ql (U) Negative (09/30/21 9:10 PM) Normal Negative [facility] UA Auto SS Clarity (U) Clear (09/30/21 9:10 PM) Normal Clear [facility] UA Auto SS Color (U) [place] *ABN* [...] PM) Normal Negative [facility] UA Auto SS Wickes.plasma/Wickes .RBC (Bld) [Mass ratio] 0-3 /HPF Normal [...] [facility] UA Auto SS Urobilinogen Qn (U) 0.2935075 {Rolan'U}/dL Normal 0.0 - 1.0 EU/dL [facility] [...] AM) Normal Negative [facility] UA Auto SS Wickes.plasma/Wickes .RBC (Bld) [Mass ratio] 0-3 /HPF Normal 0-3/HPF [facility] UA Auto SS Nitrite Ql (U) Positive *ABN* (09/17/21 9:50 AM) Invalid Interpretation Code Negative [facility] UA Auto SS pH (U) 7.0 *NA* (09/17/21 9:50 AM) Invalid Interpretation Code 5.0 - 9.0 [facility] UA Auto SS Protein (U) [Mass/Vol] Negative (09/17/21 9:50 AM) Normal Negative [facility] UA Auto SS Specific gravity (U) [Rel density] <=1.005 *NA* (09/17/21 9:50 AM) Invalid Interpretation Code 1.005 - 1.030 [facility] UA Auto SS UA Spec Desc Catheter (09/17/21 9:50 AM) Normal [facility] UA Auto SS Urobilinogen Qn (U) 0.0761365 {Rolan'U}/dL Normal 0.0 - 1.0 EU/dL [facility] UA Auto SS WBC Auto Ql (U) Trace *ABN* (09/17/21 9:50 AM) Invalid Interpretation Code Negative [facility] UA Auto SS WBC LM.HPF (Urine sed) [#/Area] 0-5 /HPF Normal 0-5/HPF [facility] UA Auto SS Automated erythrocytes count in urine sediment (number/area)Ordered By: King Carvajal on 09-08-2021 RBC Auto (Urine sed) [#/Area] 10-19 [HPF] [facility] Automated leukocytes count i n urine sediment (number/area)Ordered By: King Carvajal on 09-08-2021 WBC Auto (Urine sed) [#/Area] 0-1 [HPF] [facility] Basophils Auto (Bld) [#/Vol] Ordered By: King Carvajal on 09-08-2021 Basophils (Bld) [#/Vol] 0.1 10*3/uL 0.0-0.2 [facility] Basophils/100 WBC Auto (Bld) Ordered By: King Carvajal on 09-08-2021 Basophils/100 WBC (Bld) 1.1 % [facility] Bilirubin Test strip Ql (U)O rdered By: King Carvajal on 09-08-2021 Bilirubin Ql (U) Negative Negative [facility] Blood hemoglobin measurement (mass/volume)Ordered By: King Carvajal on 09-08-2021 Hemoglobin (Bld) [Mass/Vol] 12.0 g/dL 11.8-15.4 [facility] Blood leukocytes automated c ount (number/volume)Ordered By: King Carvajal on 09-08-2021 WBC (Bld) [#/Vol] 9.3 10*3/uL 4.5-11.0 [facility] Color Auto (U)Ordered By: Denton Carvajal on 09-08-2021 Color (U) Dark yellow Yellow [facility] Creatinine and Glomerular fi ltration rate.predicted panel (S/P/Bld)Ordered By: King Carvajal on 09-08-2021 Creatinine [Mass/Vol] 1.20 mg/dL 0.44-1.[address] [facility] Eosinophils Auto (Bld) [#/Vo l]Ordered By: King Carvajal on 09-08-2021 Eosinophils (Bld) [#/Vol] 0.1 10*3/uL 0.0-0.45 [facility] Eosinophils/100 WBC Auto (Bl d)Ordered By: King Carvajal on 09-08-2021 Eosinophils/100 WBC (Bld) 0.9 % [facility] Erythrocyte distribution wid th Auto (RBC) [Ratio]Ordered By: King Carvajal on 09-08-2021 Erythrocyte distribution width (RBC) [Ratio] 13.1 % 11.9-15.3 [facility] Estimated glomerular filtrat ion rate (GFR) non- AmericanOrdered By: King Carvajal on 09-08-2021 GFR/1.73 sq M.predicted among non-blacks MDRD (S/P/Bld) [Vol rate/Area] 44 mL/Min [facility] Hematocrit Auto (Bld) [Volum e fraction]Ordered By: King Carvajal on 09-08-2021 Hematocrit (Bld) [Volume fraction] 36.7 % 34.0-46.4 [facility] Ketones Auto test strip (U) [Mass/Vol]Ordered By: King Carvajal on 09-08-2021 Ketones (U) [Mass/Vol] Negative Negative [facility] - Hematology and Cell countsOrdered By: King Carvajal on 09-08-2021 Nucleated RBC/100 WBC (Bld) [Ratio] 0.1 % 0-0.5 [facility] - UrinalysisOrder ed By: King Carvajal on 09-08-2021 Hyaline casts LM Ql (Urine sed) 0-8 [LPF] [facility] Lymphocytes Auto (Bld) [#/Vo l]Ordered By: King Carvajal on 09-08-2021 Lymphocytes (Bld) [#/Vol] 1.4 10*3/uL 1.00-4.8 [facility] Lymphocytes/100 WBC Auto (Bl d)Ordered By: King Carvajal on 09-08-2021 Lymphocytes/100 WBC (Bld) 14.7 % [facility] MCH Auto (RBC) [Entitic mass ]Ordered By: King Carvajal on 09-08-2021 MCH (RBC) [Entitic mass] 30.3 pg 24.7-34.3 [facility] MCHC Auto (RBC) [Mass/Vol]Or dered By: King Carvajal on 09-08-2021 MCHC (RBC) [Mass/Vol] 32.6 g/dL 32.0-35.[address] [facility] MCV Auto (RBC) [Entitic vol] Ordered By: King Carvajal on 09-08-2021 MCV (RBC) [Entitic vol] 93.0 fL 80-100 [facility] Monocytes Auto (Bld) [#/Vol] Ordered By: King Carvajal on 09-08-2021 Monocytes (Bld) [#/Vol] 0.9 10*3/uL 0.0-0.8 [facility] Monocytes/100 WBC Auto (Bld) Ordered By: King Carvajal on 09-08-2021 Monocytes/100 WBC (Bld) 9.5 % [facility] Neutrophils Auto (Bld) [#/Vo l]Ordered By: King Carvajal on 09-08-2021 Neutrophils (Bld) [#/Vol] 6.8 10*3/uL 1.8-7.7 [facility] Neutrophils/100 WBC Auto (Bl d)Ordered By: King Carvajal on 09-08-2021 Neutrophils/100 WBC (Bld) 73.8 % [facility] Nitrite Test strip Ql (U)Ord ered By: King Carvajal on 09-08-2021 Nitrite Ql (U) Positive Negative [facility] No Panel InformationOrdered By: King Carvajal on 09-08-2021 Estimated GFR () 53 mL/Min [facility] Comment on above: GFR estimated refere nce range: According to KDOQI guidelines, <60 ml/min/1.73m2 is sufficient to diagnose a patient with chronic kidney disease. Pharmacy Creatinine Clearance (Chem 36.56 [facility] Platelet mean volume Auto (B ld) [Entitic vol]Ordered By: King Carvajal on 09-08-2021 Platelet mean volume (Bld) [Entitic vol] 7.0 fL 6.3-10.7 [facility] Platelets Auto (Bld) [#/Vol] Ordered By: iKng Carvajal on 09-08-2021 Platelets (Bld) [#/Vol] 280 10*3/uL 150-450 [facility] Protein Auto test strip (U) [Mass/Vol]Ordered By: King Carvajal on 09-08-2021 Protein (U) [Mass/Vol] Negative Negative [facility] RBC Auto (Bld) [#/Vol]Ordere d By: King Carvajal on 09-08-2021 RBC (Bld) [#/Vol] 3.95 10*6/uL 3.60-5.00 [facility] Serum or plasma calcium dimitris urement (mass/volume)Ordered By: King Carvajal on 09-08-2021 Calcium [Mass/Vol] 9.2 mg/dL 8.2-10.2 [facility] Serum or plasma chloride jeison surement (moles/volume)Ordered By: King Carvajal on 09-08-2021 Chloride [Moles/Vol] 91 mmol/L 95-114 [facility] Serum or plasma glucose dimitris urement (mass/volume)Ordered By: King Carvajal on 09-08-2021 Glucose [Mass/Vol] 194 mg/dL 70-100 [facility] Comment on above: ADA recommended refe rence range Random Glucose Reference Range is dependent on time and content of last meal. Glucose of more than 200 mg/dL in a nonstressed, ambulatory subject supports the diagnosis of Diabetes Mellitus. Serum or plasma potassium me asurement (moles/volume)Ordered By: King Carvajal on 09-08-2021 Potassium [Moles/Vol] 3.6 mmol/L 3.5-5.[address] [facility] Serum or plasma sodium measu rement (moles/volume)Ordered By: King Carvajal on 09-08-2021 Sodium [Moles/Vol] 126 mmol/L 136-146 [facility] Serum or plasma total carbon dioxide measurement (moles/volume)Ordered By: King Carvajal on 09-08-2021 CO2 [Moles/Vol] 24.2 mmol/L 22.0-30.0 [facility] Serum or plasma urea nitroge n measurement (mass/volume)Ordered By: King Carvajal on 09-08-2021 Urea nitrogen [Mass/Vol] 5 mg/dL 9-23 [facility] Specific gravity Auto test s trip (U) [Rel density]Ordered By: King Carvajal on 09-08-2021 Specific gravity (U) [Rel density] 1.010 1.001-1.03 0 [facility] Squamous epithelial cells de tection in urine sediment by light microscopyOrdered By: King Carvajal on 09-08-2021 Epithelial cells.squamous LM Ql (Urine sed) 0-1 [HPF] [facility] URINALYSISOrdered By: Alliso n Nilesh on 09-08-2021 Bacteria LM Ql (Urine sed) Trace /HPF Normal Trace/HPF [facility] UA Auto SS Bilirubin Ql (U) Negative (09/08/21 5:21 AM) Normal Negative [facility] UA Auto SS Clarity (U) Clear (09/08/21 5:21 AM) Normal Clear [facility] UA Auto SS Color (U) Yellow (09/08/21 5:21 AM) Normal Yellow [facility] UA Auto SS Crystals LM Ql (Urine sed) Present (09/08/21 5:21 AM) Normal [facility] UA Auto SS Epithelial cells.squamous LM.HPF (Urine sed) [#/Area] 0-2 /HPF Normal 0-2/HPF [facility] UA Auto SS Glucose Test strip (U) [Mass/Vol] Negative (09/08/21 5:21 AM) Normal Negative [facility] UA Auto SS Hemoglobin Ql (U) Negative (09/08/21 5:21 AM) Normal Negative [facility] UA Auto SS Ketones (U) [Mass/Vol] Negative (09/08/21 5:21 AM) Normal Negative [facility] UA Auto SS Wickes.plasma/Wickes .RBC (Bld) [Mass ratio] 0-3 /HPF Normal 0-3/HPF [facility] UA Auto SS Nitrite Ql (U) Negative (09/08/21 5:21 AM) Normal Negative [facility] UA Auto SS pH (U) 7.0 *NA* (09/08/21 5:21 AM) Invalid Interpretation Code 5.0 - 9.0 [facility] UA Auto SS Protein (U) [Mass/Vol] Negative (09/08/21 5:21 AM) Normal Negative [facility] UA Auto SS Specific gravity (U) [Rel density] 1.010 *NA* (09/08/21 5:21 AM) Invalid Interpretation Code 1.005 - 1.030 [facility] UA Auto SS UA Spec Desc Catheter (09/08/21 5:21 AM) Normal [facility] UA Auto SS Urobilinogen Qn (U) 0.3751272 {Rolan'U}/dL Normal 0.0 - 1.0 EU/dL [facility] UA Auto SS WBC Auto Ql (U) Negative (09/08/21 5:21 AM) Normal Negative [facility] UA Auto SS WBC LM.HPF (Urine sed) [#/Area] 0-5 /HPF Normal 0-5/HPF [facility] UA Auto SS Urine bacteria detection by automated methodOrdered By: King Carvajal on 09-08-2021 Bacteria Auto Ql (U) None seen None Seen [facility] Urine clarity by refractomet ry automatedOrdered By: King Carvajal on 09-08-2021 Clarity Refractometry automated (U) Clear Clear [facility] Urine culture routineOrdered By: King Carvajal on 09-08-2021 Bacteria identified Cx Nom (U) No Growth 2 Days [facility] Urine glucose measurement by automated test strip (mass/volume)Ordered By: King Carvajal on 09-08-2021 Glucose Auto test strip (U) [Mass/Vol] Normal mg/dL Normal [facility] Urine hemoglobin detection b y automated test stripOrdered By: King Carvajal on 09-08-2021 Hemoglobin Auto test strip Ql (U) 1+ Negative [facility] Urine leukocyte esterase det ection by automated test stripOrdered By: King Carvajal on 09-08-2021 Leukocyte esterase Auto test strip Ql (U) 1+ Negative [facility] Urobilinogen Auto test strip (U) [Mass/Vol]Ordered By: King Carvajal on 09-08-2021 Urobilinogen (U) [Mass/Vol] Normal mg/dL Normal [facility] pH Auto test strip (U)Ordere d By: King Carvajal on 09-08-2021 pH (U) 6.0 [pH] 5.0-9.0 [facility] CHEMISTRYOrdered By: SYSTEM SYSTEM on 09-07-2021 Anion gap [Moles/Vol] 14 mmol/L Normal 6 - 16 mEq/L [facility] Remisol Calcium [Mass/Vol] 9.3 mg/dL Normal 8.9 - 11. 1 mg/dL [facility] Remisol Chloride [Moles/Vol] 96 mmol/L Low 101 - 1 11 mmol/L [facility] CO2 [Moles/Vol] 26 mmol/L Normal 21 - 31 mmol/L [facility] Remisol Creatinine [Mass/Vol] 1.1 mg/dL Normal 0.5 - 1.3 mg/dL [facility] Remisol GFR/1.73 sq M.predicted among blacks MDRD (S/P/Bld) [Vol rate/Area] 59 mL/min/1.73 m2 Normal >=59mL/min /1.73 m2 [facility] Chem S GFR/1.73 sq M.predicted among non-blacks MDRD (S/P/Bld) [Vol rate/Area] 49 mL/min/1.73 m2 Low >=59mL/min /1.73 m2 [facility] Chem S Glucose [Mass/Vol] 114 mg/dL Normal 55 - 199 mg/dL [facility] Remisol Potassium [Moles/Vol] 3.9 mmol/L Normal 3.5 - 5.3 mmol/L [facility] Remisol Sodium [Moles/Vol] 132 mmol/L Low 135 [...] 2.3 g/dL Normal 1.4 - 4.0 gm/dL [facility] Remisol Glucose [Mass/Vol] 109 mg/dL Normal 55 - 199 mg/dL [facility] Remisol Potassium [Moles/Vol] 4.2 mmol/L Normal 3.5 [...] 7.2 fL Normal 6.4 - 10.8 fL [facility]eAutoSS Platelets (Bld) [#/Vol] 273.0 E9/L Normal 150.0 - 500.0 E9/L [facility] HemeAutoSS RBC (Bld) [#/Vol] 3.8 E12/L Low 4.3 - 5.9 E12/L [facility] WBC corrected for nucl RBC Auto (Bld) [#/Vol] 10.3 E9/L Normal 4.0 - 11.0 E9/L [facility] HEMATOLOGYOrdered By: Lilibeth Farrell on 09-07-2021 Erythrocyte distribution width (RBC) [Ratio] 12.8 % Normal 10.9 - 14.2 % [facility] Hematocrit (Bld) [Volume fraction] 33.0 % Low 34.0 - 46.0 % [facility] Hemoglobin (Bld) [Mass/Vol] 11.1 g/dL Low 12.0 - 16.0 gm/dL [facility] MCH (RBC) [Entitic mass] 30.6 pg Normal 27.0 - 34.0 pg [facility] MCHC (RBC) [Mass/Vol] 33.5 g/dL Normal 31.4 - 36.0 gm/dL [facility] MCV (RBC) [Entitic vol] 91.4 fL Normal 80.0 - 100.0 fL [facility] Platelet mean volume (Bld) [Entitic vol] 6.6 fL Normal 6.4 - 10.8 fL [facility] Platelets (Bld) [#/Vol] 262.0 E9/L Normal 150.0 - 500.0 E9/L [facility] HemeAutoSS RBC (Bld) [#/Vol] 3.6 E12/L Low 4.3 - 5.9 E12/L [facility] WBC corrected for nucl RBC Auto (Bld) [#/Vol] 8.2 E9/L Normal 4.0 - 11.0 E9/L [facility] HemeAutoSS LaboratoryOrdered By: Jose Smith on 09-07-2021 Wickes.plasma/Wickes .RBC (Bld) [Mass ratio] 0-3 /HPF Normal 0-3/HPF [facility] UA Auto SS Laboratory - Chemistry and C hemistry - challengeOrdered By: Jose Smith on 09-07-2021 Urobilinogen Qn (U) 1.0833335 {Rolan'U}/dL Normal 0.0 - 1.0 EU/dL [facility] UA Auto SS Laboratory - UrinalysisOrder ed By: Jose Smith on 09-07-2021 WBC LM.HPF (Urine sed) [#/Area] 0-5 /HPF Normal 0-5/HPF [facility] UA Auto SS MICRO OTHER TESTSOrdered By: Klaudia Painter on 09-07-2021 Fecal WBC Lactoferrin Negative (09/07/21 8:10 AM) Normal Negative [facility] Man Sero URINALYSISOrdered By: Jose Smith on [...] Desc Clean Catch (09/07/21 6:00 AM) Normal [facility] UA Auto SS WBC Auto Ql (U) 1+ *ABN* (09/07/21 6:00 AM) Invalid Interpretation Code Negative [facility] UA Auto SS Activated partial thrombopla stin time (aPTT) in platelet poor plasma by coagulation aOrdered By: Jaxon Buchanan on 08-07-2021 aPTT Coag (PPP) [Time] 28.9 s 25.1-36.5 [facility] Automated epithelial cells c ount in urine sediment (number/area)Ordered By: Jaxon Buchaann on 08-07-2021 Epithelial cells Auto (Urine sed) [#/Area] 0-1 [HPF] [facility] Automated erythrocytes count in urine sediment (number/area)Ordered By: Jaxon Buchanan on 08-07-2021 RBC Auto (Urine sed) [#/Area] 0-1 [HPF] [facility] Automated leukocytes count i n urine sediment (number/area)Ordered By: Jaxon Buchanan on 08-07-2021 WBC Auto (Urine sed) [#/Area] 0-1 [HPF] [facility] Basophils Auto (Bld) [#/Vol] Ordered By: Jaxon Buchanan on 08-07-2021 Basophils (Bld) [#/Vol] 0.2 10*3/uL 0.0-0.2 [facility] Basophils/100 WBC Auto (Bld) Ordered By: Jaxon Buchanan on 08-07-2021 Basophils/100 WBC (Bld) 2.7 % [facility] Bilirubin Test strip Ql (U)O rdered By: Jaxon Buchanan on 08-07-2021 Bilirubin Ql (U) See comment Negative [facility] Comment on above: Unable to obtain acc urate result due to color interference. Blood hemoglobin measurement (mass/volume)Ordered By: Jaxon Buchanan on 08-07-2021 Hemoglobin (Bld) [Mass/Vol] 10.3 g/dL 11.8-15.4 [facility] Blood leukocytes automated c ount (number/volume)Ordered By: Jaxon Buchanan on 08-07-2021 WBC (Bld) [#/Vol] 7.4 10*3/uL 4.5-11.0 [facility] Body fluid albumin measureme nt (mass/volume)Ordered By: Jaxon Buchanan on 08-07-2021 Albumin (Body fld) [Mass/Vol] 3.7 g/dL 3.2-5.5 [facility] Color Auto (U)Ordered By: Rolando Buchanan on 08-07-2021 Color (U) [place] Yellow [facility] Creatinine and Glomerular fi ltration rate.predicted panel (S/P/Bld)Ordered By: Jaxon Buchanan on 08-07-2021 Creatinine [Mass/Vol] 1.46 mg/dL 0.44-1.[address] [facility] Eosinophils Auto (Bld) [#/Vo l]Ordered By: Jaxon Buchanan on 08-07-2021 Eosinophils (Bld) [#/Vol] 0.3 10*3/uL 0.0-0.45 [facility] Eosinophils/100 WBC Auto (Bl d)Ordered By: Jaxon Buchanan on 08-07-2021 Eosinophils/100 WBC (Bld) 3.4 % [facility] Erythrocyte distribution wid th Auto (RBC) [Ratio]Ordered By: Jaxon Buchanan on 08-07-2021 Erythrocyte distribution width (RBC) [Ratio] 13.8 % 11.9-15.3 [facility] Estimated glomerular filtrat ion rate (GFR) non- AmericanOrdered By: Jaxon Buchanan on 08-07-2021 GFR/1.73 sq M.predicted among non-blacks MDRD (S/P/Bld) [Vol rate/Area] 35 mL/Min [facility] Globulin Calc (S) [Mass/Vol] Ordered By: Jaxon Buchanan on 08-07-2021 Globulin (S) [Mass/Vol] 2.4 g/dL [facility] Hematocrit Auto (Bld) [Volum e fraction]Ordered By: Jaxon Buchanan on 08-07-2021 Hematocrit (Bld) [Volume fraction] 31.9 % 34.0-46.4 [facility] Ketones Auto test strip (U) [Mass/Vol]Ordered By: Jaxon Buchanan on 08-07-2021 Ketones (U) [Mass/Vol] See comment Negative [facility] Comment on above: Unable to obtain acc urate result due to color interference. Laboratory - Chemistry and C hemistry - challengeOrdered By: Jaxon Buchanan on 08-07-2021 Lipase [Catalytic activity/Vol] 49.0 U/L - [facility] Laboratory - CoagulationOrde red By: Jaxon Buchanan on 08-07-2021 PT Coag (PPP) [Time] 10.9 s 9.0-12.9 [facility] Laboratory - Hematology and Cell countsOrdered By: Jaxon Buchanan on 08-07-2021 Nucleated RBC/100 WBC (Bld) [Ratio] 0.1 % 0-0.5 [facility] Lymphocytes Auto (Bld) [#/Vo l]Ordered By: Jaxon Buchanan on 08-07-2021 Lymphocytes (Bld) [#/Vol] 1.9 10*3/uL 1.00-4.8 [facility] Lymphocytes/100 WBC Auto (Bl d)Ordered By: Jaxon Buchanan on 08-07-2021 Lymphocytes/100 WBC (Bld) 26.0 % [facility] MCH Auto (RBC) [Entitic mass ]Ordered By: Jaxon Buchanan on 08-07-2021 MCH (RBC) [Entitic mass] 29.6 pg 24.7-34.3 [facility] MCHC Auto (RBC) [Mass/Vol]Or dered By: Jaxon Buchanan on 08-07-2021 MCHC (RBC) [Mass/Vol] 32.2 g/dL 32.0-35.[address] [facility] MCV Auto (RBC) [Entitic vol] Ordered By: Jaxon Buchanan on 08-07-2021 MCV (RBC) [Entitic vol] 91.9 fL 80-100 [facility] Monocytes Auto (Bld) [#/Vol] Ordered By: Jaxon Bcuhanan on 08-07-2021 Monocytes (Bld) [#/Vol] 0.8 10*3/uL 0.0-0.8 [facility] Monocytes/100 WBC Auto (Bld) Ordered By: Jaxon Buchanan on 08-07-2021 Monocytes/100 WBC (Bld) 10.8 % [facility] Neutrophils Auto (Bld) [#/Vo l]Ordered By: Jaxon Buchanan on 08-07-2021 Neutrophils (Bld) [#/Vol] 4.2 10*3/uL 1.8-7.7 [facility] Neutrophils/100 WBC Auto (Bl d)Ordered By: Jaxon Buchanan on 08-07-2021 Neutrophils/100 WBC (Bld) 57.1 % [facility] Nitrite Test strip Ql (U)Ord ered By: Jaxon Buchanan on 08-07-2021 Nitrite Ql (U) See comment Negative [facility] Comment on above: Unable to obtain acc urate result due to color interference. No Panel InformationOrdered By: Jaxon Buchanan on 08-07-2021 Estimated GFR () 42 mL/Min [facility] Comment on above: GFR estimated refere nce range: According to KDOQI guidelines, <60 ml/min/1.73m2 is sufficient to diagnose a patient with chronic kidney disease. Pharmacy Creatinine Clearance (Chem 27.14 [facility] Platelet mean volume Auto (B ld) [Entitic vol]Ordered By: Jaxon Buchanan on 08-07-2021 Platelet mean volume (Bld) [Entitic vol] 7.1 fL 6.3-10.7 [facility] Platelet poor plasma interna tional normalized ratio (INR) by coagulation assay (relatOrdered By: Jaxon Buchanan on 08-07-2021 INR Coag (PPP) [Relative time] 1.0 {INR} [facility] Comment on above: INR Therapeutic Rang [...] 08-07-2021 Platelets (Bld) [#/Vol] 297 10*3/uL 150-450 [facility] Protein Auto test strip (U) [Mass/Vol]Ordered By: Jaxon Buchanan on 08-07-2021 Protein (U) [Mass/Vol] See comment Negative [facility] Comment on above: Unable to obtain acc urate result due to color interference. Protein [Mass/volume] in Ser um or PlasmaOrdered By: Jaxon Buchanan on 08-07-2021 Protein [Mass/Vol] 6.1 g/dL 6.1-7.9 [facility] RBC Auto (Bld) [#/Vol]Ordere d By: Jaxon Buchanan on 08-07-2021 RBC (Bld) [#/Vol] 3.47 10*6/uL 3.60-5.00 [facility] Serum or plasma alanine hancock otransferase measurement without P-5'-P (enzymatic activiOrdered By: Jaxon Buchanan on 08-07-2021 ALT No additional P-5'-P [Catalytic activity/Vol] 14 U/L 10-60 [facility] Serum or plasma albumin/glob ulin mass ratioOrdered By: Jaxon Buchanan on 08-07-2021 Albumin/Globulin [Mass ratio] 1.5 {ratio} [facility] Serum or plasma alkaline miguel ángel sphatase measurement (enzymatic activity/volume)Ordered By: Jaxon Buchanan on 08-07-2021 ALP [Catalytic activity/Vol] 57 U/L 32-92 [facility] Serum or plasma amylase dimitris urement (enzymatic activity/volume)Ordered By: Jaxon Buchanan on 08-07-2021 Amylase [Catalytic activity/Vol] 53 U/L 28-100 [facility] Serum or plasma aspartate am inotransferase measurement (enzymatic activity/volume)Ordered By: Jaxon Buchanan on 08-07-2021 AST [Catalytic activity/Vol] 22 U/L 10-42 [facility] Serum or plasma calcium dimitris urement (mass/volume)Ordered By: Jaxon Buchanan on 08-07-2021 Calcium [Mass/Vol] 9.2 mg/dL 8.2-10.2 [facility] Serum or plasma chloride jeison surement (moles/volume)Ordered By: Jaxon Buchanan on 08-07-2021 Chloride [Moles/Vol] 93 mmol/L 95-114 [facility] Serum or plasma glucose dimitris urement (mass/volume)Ordered By: Jaxon Buchanan on 08-07-2021 Glucose [Mass/Vol] 114 mg/dL 70-100 [facility] Comment on above: ADA recommended refe rence range Random Glucose Reference Range is dependent on time and content of last meal. Glucose of more than 200 mg/dL in a nonstressed, ambulatory subject supports the diagnosis of Diabetes Mellitus. Serum or plasma potassium me asurement (moles/volume)Ordered By: Jaxon Buchanan on 08-07-2021 Potassium [Moles/Vol] 4.3 mmol/L 3.5-5.[address] [facility] Serum or plasma sodium measu rement (moles/volume)Ordered By: Jaxon Buchanan on 08-07-2021 Sodium [Moles/Vol] 130 mmol/L 136-146 [facility] Serum or plasma total biliru bin measurement (mass/volume)Ordered By: Jaxon Buchanan on 08-07-2021 Bilirubin [Mass/Vol] 1.1 mg/dL 0.3-1.2 [facility] Serum or plasma total carbon dioxide measurement (moles/volume)Ordered By: Jaxon Buchanan on 08-07-2021 CO2 [Moles/Vol] 29.1 mmol/L 22.0-30.0 [facility] Serum or plasma urea nitroge n measurement (mass/volume)Ordered By: Jaxon Buchanan on 08-07-2021 Urea nitrogen [Mass/Vol] 7 mg/dL 9- [facility] Specific gravity Auto test s trip (U) [Rel density]Ordered By: Jaxon Buchanan on 08-07-2021 Specific gravity (U) [Rel density] 1.005 1.001-1.03 0 [facility] Troponin I.cardiac [Mass/vol ume] in Serum or Plasma by High sensitivity methodOrdered By: Jaxon Buchanan on 08-07-2021 Troponin I.cardiac High sensitivity method [Mass/Vol] 3 pg/mL 0- [facility] Urine bacteria detection by automated methodOrdered By: Jaxon Buchanan on 08-07-2021 Bacteria Auto Ql (U) None seen None Seen [facility] Urine clarity by refractomet ry automatedOrdered By: Jaxon Buchanan on 08-07-2021 Clarity Refractometry automated (U) Clear Clear [facility] Urine culture routineOrdered By: Jaxon Buchanan on 08-07-2021 Bacteria identified Cx Nom (U) 2 Days [facility] Urine glucose measurement by automated test strip (mass/volume)Ordered By: Jaxon Buchanan on 08-07-2021 Glucose Auto test strip (U) [Mass/Vol] See comment Normal [facility] Comment on above: Unable to obtain acc urate result due to color interference. Urine hemoglobin detection b y automated test stripOrdered By: Jaxon Buchanan on 08-07-2021 Hemoglobin Auto test strip Ql (U) See comment Negative [facility] Comment on above: Unable to obtain acc urate result due to color interference. Urine lactic acid measuremen tOrdered By: Jaxon Buchanan on 08-07-2021 Lactate (U) [Moles/Vol] 1.1 mmol/L [facility] Urine leukocyte esterase det ection by automated test stripOrdered By: Jaxon Buchanan on 08-07-2021 Leukocyte esterase Auto test strip Ql (U) See comment Negative [facility] Comment on above: Unable to obtain acc urate result due to color interference. Urobilinogen Auto test strip (U) [Mass/Vol]Ordered By: Jaxon Buchanan on 08-07-2021 Urobilinogen (U) [Mass/Vol] See comment Normal [facility] Comment on above: Unable to obtain acc urate result due to color interference. pH Auto test strip (U)Ordere d By: Jaxon Buchanan on 08-07-2021 pH (U) See comment 5.0-9.0 [facility] Comment on above: Unable to obtain acc urate result due to color interference. Automated erythrocytes count in urine sediment (number/area)Ordered By: Gloria Moss on 07-27-2021 RBC Auto (Urine sed) [#/Area] 0-1 [HPF] [facility] Automated leukocytes count i n urine sediment (number/area)Ordered By: Gloria Moss on 07-27-2021 WBC Auto (Urine sed) [#/Area] 1-2 [HPF] [facility] Bilirubin Test strip Ql (U)O rdered By: Gloria Moss on 07-27-2021 Bilirubin Ql (U) 1+ Negative [facility] Color Auto (U)Ordered By: Kota Moss on 07-27-2021 Color (U) Dark yellow Yellow [facility] Ketones Auto test strip (U) [Mass/Vol]Ordered By: Gloria Moss on 07-27-2021 Ketones (U) [Mass/Vol] Negative Negative [facility] - UrinalysisOrder ed By: Gloria Moss on 07-27-2021 Hyaline casts LM Ql (Urine sed) 0-8 [LPF] [facility] Nitrite Test strip Ql (U)Ord ered By: Gloria Moss on 07-27-2021 Nitrite Ql (U) Positive Negative [facility] Protein Auto test strip (U) [Mass/Vol]Ordered By: Gloria Moss on 07-27-2021 Protein (U) [Mass/Vol] Negative [facility] Auto test s trip (U) [Rel density]Ordered By: Gloria Moss on 07-27-2021 Specific gravity (U) [Rel density] 1.010 1.001-1.03 0 [facility] Squamous epithelial cells de tection in urine sediment by light microscopyOrdered By: Gloria Moss on 07-27-2021 Epithelial cells.squamous LM Ql (Urine sed) 3-4 [HPF] [facility] Urine bacteria detection by automated methodOrdered By: Gloria Moss on 07-27-2021 Bacteria Auto Ql (U) None seen None Seen [facility] Urine clarity by refractomet ry automatedOrdered By: Gloria Moss on 07-27-2021 Clarity Refractometry automated (U) Clear Clear [facility] Urine culture routineOrdered By: Gloria Moss on 07-27-2021 Bacteria identified Cx Nom (U) No Growth 2 Days [facility] Urine glucose measurement by automated test strip (mass/volume)Ordered By: Gloria Moss on 07-27-2021 Glucose Auto test strip (U) [Mass/Vol] Normal mg/dL Normal [facility] Urine hemoglobin detection b y automated test stripOrdered By: Gloria Moss on 07-27-2021 Hemoglobin Auto test strip Ql (U) Negative Negative [facility] Urine leukocyte esterase det ection by automated test stripOrdered By: Gloria Moss on 07-27-2021 Leukocyte esterase Auto test strip Ql (U) 1+ Negative [facility] Urobilinogen Auto test strip (U) [Mass/Vol]Ordered By: Gloria Moss on 07-27-2021 Urobilinogen (U) [Mass/Vol] Normal mg/dL Normal [facility] pH Auto test strip (U)Ordere d By: Gloria Moss on 07-27-2021 pH (U) 6.5 [pH] 5.0-9.0 [facility] Automated erythrocytes count in urine sediment (number/area)Ordered By: Jennifer Arreaga on 07-22-2021 RBC Auto (Urine sed) [#/Area] 3-4 [HPF] [facility] Automated leukocytes count i n urine sediment (number/area)Ordered By: Jennifer Arreaga on 07-22-2021 WBC Auto (Urine sed) [#/Area] 3-4 [HPF] [facility] Bilirubin Test strip Ql (U)O rdered By: Jennifer Arreaga on 07-22-2021 Bilirubin Ql (U) Negative Negative [facility] Color Auto (U)Ordered By: Gi aimee Arreaga on 07-22-2021 Color (U) Dark yellow Yellow [facility] Ketones Auto test strip (U) [Mass/Vol]Ordered By: Jennifer Arreaga on 07-22-2021 Ketones (U) [Mass/Vol] Negative Negative [facility] - UrinalysisOrder ed By: Jennifer Arreaga on 07-22-2021 Hyaline casts LM Ql (Urine sed) 0-8 [LPF] [facility] Nitrite Test strip Ql (U)Ord ered By: Jennifer Arreaga on 07-22-2021 Nitrite Ql (U) Positive Negative [facility] Protein Auto test strip (U) [Mass/Vol]Ordered By: Jennifer Arreaga on 07-22-2021 Protein (U) [Mass/Vol] Negative Negative [facility] Specific gravity Auto test s trip (U) [Rel density]Ordered By: Jennifer Arreaga on 07-22-2021 Specific gravity (U) [Rel density] 1.011 1.001-1.03 0 [facility] Squamous epithelial cells de tection in urine sediment by light microscopyOrdered By: Jennifer Arreaga on 07-22-2021 Epithelial cells.squamous LM Ql (Urine sed) 5-9 [HPF] [facility] Urine bacteria detection by automated methodOrdered By: Jennifer Arreaga on 07-22-2021 Bacteria Auto Ql (U) None seen None Seen [facility] Urine clarity by refractomet ry automatedOrdered By: Jennifer Arreaga on 07-22-2021 Clarity Refractometry automated (U) Clear Clear [facility] Urine culture routineOrdered By: Jennifer Arreaga on 07-22-2021 Bacteria identified Cx Nom (U) No Growth 2 Days [facility] Urine glucose measurement by automated test strip (mass/volume)Ordered By: Jennifer Arreaga on 07-22-2021 Glucose Auto test strip (U) [Mass/Vol] Normal mg/dL Normal [facility] Urine hemoglobin detection b y automated test stripOrdered By: Jennifer Arreaga on 07-22-2021 Hemoglobin Auto test strip Ql (U) Negative Negative [facility] Urine leukocyte esterase det ection by automated test stripOrdered By: Jennifer Arreaga on 07-22-2021 Leukocyte esterase Auto test strip Ql (U) 1+ Negative [facility] Urobilinogen Auto test strip (U) [Mass/Vol]Ordered By: Jennifer Arreaga on 07-22-2021 Urobilinogen (U) [Mass/Vol] Normal mg/dL Normal [facility] pH Auto test strip (U)Ordere d By: Jennifer Arreaga on 07-22-2021 pH (U) 5.5 [pH] 5.0-9.0 [facility] Automated erythrocytes count in urine sediment (number/area)Ordered By: Maciej Rodriguez on 07-19-2021 RBC Auto (Urine sed) [#/Area] None seen [HPF] [facility] Automated leukocytes count i n urine sediment (number/area)Ordered By: Maciej Rodriguez on 07-19-2021 WBC Auto (Urine sed) [#/Area] None seen [HPF] [facility] Bilirubin Test strip Ql (U)O rdered By: Maciej Rodriguez on 07-19-2021 Bilirubin Ql (U) 1+ Negative [facility] Color Auto (U)Ordered By: Salvatore Rodriguez on 07-19-2021 Color (U) Dark yellow Yellow [facility] Ketones Auto test strip (U) [Mass/Vol]Ordered By: Maciej Rodriguez on 07-19-2021 Ketones (U) [Mass/Vol] Negative Negative [facility] - UrinalysisOrder ed By: Maciej Rodriguez on 07-19-2021 Hyaline casts LM Ql (Urine sed) 0-8 [LPF] [facility] Nitrite Test strip Ql (U)Ord ered By: Maciej Rodriguez on 07-19-2021 Nitrite Ql (U) Positive Negative [facility] Protein Auto test strip (U) [Mass/Vol]Ordered By: Maciej Rodriguez on 07-19-2021 Protein (U) [Mass/Vol] Negative Negative [facility] Specific gravity Auto test s trip (U) [Rel density]Ordered By: Maciej Rodriguez on 07-19-2021 Specific gravity (U) [Rel density] 1.007 1.001-1.03 0 [facility] Squamous epithelial cells de tection in urine sediment by light microscopyOrdered By: Maciej Rodriguez on 07-19-2021 Epithelial cells.squamous LM Ql (Urine sed) 0-1 [HPF] [facility] Urine bacteria detection by automated methodOrdered By: Maciej Rodriguez on 07-19-2021 Bacteria Auto Ql (U) None seen None Seen [facility] Urine clarity by refractomet ry automatedOrdered By: Maciej Rodriguez on 07-19-2021 Clarity Refractometry automated (U) Clear Clear [facility] Urine culture routineOrdered By: Maciej Rodriguez on 07-19-2021 Bacteria identified Cx Nom (U) 2 Days [facility] Urine glucose measurement by automated test strip (mass/volume)Ordered By: Maciej Rodriguez on 07-19-2021 Glucose Auto test strip (U) [Mass/Vol] Normal mg/dL Normal [facility] Urine hemoglobin detection b y automated test stripOrdered By: Maciej Rodriguez on 07-19-2021 Hemoglobin Auto test strip Ql (U) Negative Negative [facility] Urine leukocyte esterase det ection by automated test stripOrdered By: Maciej Rodriguez on 07-19-2021 Leukocyte esterase Auto test strip Ql (U) 1+ Negative [facility] Urobilinogen Auto test strip (U) [Mass/Vol]Ordered By: Maciej Rodriguez on 07-19-2021 Urobilinogen (U) [Mass/Vol] Normal mg/dL Normal [facility] pH Auto test strip (U)Ordere d By: Maciej Rodriguez on 07-19-2021 pH (U) 5.5 [pH] 5.0-9.0 [facility] History and Physicalon 10-03 History and Physical MR#: [id number] Pt. Name: Maegan Dye Admitted: 09/27/2017 Date of : 1950 Attending Physician: Stormy James MD Room #: [id number] Discharge Date: 09/29/2017 HISTORY AND PHYSICALCHIEF COMPLAINT: [...] is significant for DVT. The patient sadie [place].PAST MEDICAL HISTORY: Posttraumatic stress disorder, depression,hypertension, history of DVT, GERD, Agent [place], chronic back pain.PAST SURGICAL HISTORY: Pain pump, hysterectomy, left ORIF, appendectomy.ALLERGIES: Compazine, Neosporin, bacitracin, methadone, phenothiazine,shellfish.ANTONIO CARDOZO MEDICAL HISTORY: Positive for alcoholism in mother, [...] personal documentation from me. Date Dict: 10/02/2017/07:00 P/Meghann Ren MDDate Trans: 10/03/2017 05:29 [id number] Normal [facility] CREATININE URINE RANDOMon Creatinine 66.0 mg/dL Normal [facility] Comment on above: Result Comment: Ther e are no established reference values for random urine specimens Performed By: #### 1 0054, [id number] ####[facility] [place] [address], [facility] Discharge Summaryon 09-30-19 18 Discharge Summary MR#: [id number] [facility] Admitted: 09/27/2017 Discharged: 09/29/2017 Date of : 1950 Physician: Stormy James MD DISCHARGE SUMMARYPRIMARY DIAGNOSIS: Subdural hematoma.SECONDARY DIAGNOSES: History of deep venous thrombosis, on Eliquis;chronic low back pain.HOSPITAL COURSE: The patient is a 67-year-old female, [facility], status post a fall. The patient is currently onEliquis for history of DVT. The patient initially presented to an outsidehospital where CT head demonstrated a subdural hematoma on the left side.The patient was then transferred to [facility] for further evaluation by theNeurosurgery team. The [...] personal documentation from me. Date Dict: 09/29/2017/07:43 A/Dakota Fuller Trans: 09/29/2017 08:00 A/[id number] c: Tomas Farrell D.O. [address] [facility] [address] Normal [facility] SODIUM URINE RANDOMon 2017 Sodium 41 mmol/L Normal [facility] Comment on above: Result Comment: Ther e are no established reference values for random urine specimens Performed By: #### 1 2394, [id number] ####[facility] [place] [address], [place] TOX PANEL URINEon 09-29-2017 50 THC Negative Normal NEGATIVE [facility] Comment on above: Performed By: #### ####[facility] [place] [address], [place] BARBITURATES Negative Normal NEGATIVE [facility] Comment on above: Performed By: #### ####[facility] [place] [address], [place] MONO AMPHET Negative Normal NEGATIVE [facility] Comment on above: Performed By: #### ####[facility] [place] [address], [place] PROPOXYPHENE Negative Normal NEGATIVE [facility] Comment on above: Performed By: #### ####[facility] [place] [address], [place] TRICYCLICS Negative Normal NEGATIVE [facility] Comment on above: Performed By: #### ####[facility] [place] [address], [place] Urine, benzodiazepines presence Negative Normal NEGATIVE [facility] Comment on above: Performed By: #### ####[facility] [place] [address], [place] Urine, cocaine presence Negative Normal NEGATIVE [facility] Comment on above: Performed By: #### ####[facility] [place] [address], [place] Urine, methadone presence Negative Normal NEGATIVE [facility] Comment on above: Performed By: #### ####[facility] [place] [address], [facility] Urine, opiates presence Positive Abnormal NEGATIVE [facility] Comment on above: Performed By: #### 1 53, ####[facility] [facility] [place] [address], [facility] Urine, phencyclidine presence Negative Normal NEGATIVE [facility] Comment on above: Performed By: #### 1 53, ####[facility] [place] [address], [facility] URINALYSIS REFLEXon 09-30-19 18 Bilirubin (total) Negative Normal NEGATIVE [facility] Comment on above: Order Comment: No: D o not add to previous draw Performed By: #### 1 53, ####[facility] [facility] [place] [address], [facility] BLOOD SMALL Abnormal NEGATIVE [facility] Comment on above: Order Comment: No: D o not add to previous draw Performed By: #### 1 53, ####[facility] [facility] [place] [address], [facility] EPIS MANY Abnormal FEW,OCC,NO NE SEEN [facility] Comment on above: Order Comment: No: D o not add to previous draw Performed By: #### 1 53, ####[facility] [facility] [place] [address], [facility] Glucose mass conc Negative Normal NEGATIVE [facility] Comment on above: Order Comment: No: D o not add to previous draw Performed By: #### 1 53, ####[facility] [facility] [place] [address], [facility] KETONE Negative Normal NEGATIVE [facility] Comment on above: Order Comment: No: D o not add to previous draw Performed By: #### 1 53, ####[facility] LEUK ZENA Negative Normal NEGATIVE [facility] Comment on above: Order Comment: No: D o not add to previous draw Performed By: #### 1 ####[facility] [place] [address], [facility] MUCUS THREADS OCC Abnormal NONE SEEN [facility] Comment on above: Order Comment: No: D o not add to previous draw Performed By: #### 1 ####[facility] [place] [address], [facility] pH of blood 5.0 [pH] Normal 5.0-8.0 [facility] Comment on above: Order Comment: No: D o not add to previous draw Performed By: #### 1 ####[facility] Protein Negative Normal NEGATIVE [facility] Comment on above: Order Comment: No: D o not add to previous draw Performed By: #### 1 ####[facility] [facility].[address] SPEC GRAV 1.008 Low 1.015-1.02 0 [facility] Comment on above: Order Comment: No: D o not add to previous draw Performed By: #### 1 ####[facility] [place] [address], [facility] Urine, appearance CLEAR Normal CLEAR [facility] Comment on above: Order Comment: No: D o not add to previous draw Performed By: #### 1 ####[facility] [place] [address], [facility] Urine, bacteria in sediment OCC Abnormal NONE SEEN [facility] Comment on above: Order Comment: No: D o not add to previous draw Performed By: #### 1 ####[facility] [place] [address], [place] Urine, color STRAW Abnormal YELLOW [facility] Comment on above: Order Comment: No: D o not add to previous draw Performed By: #### 1 53, ####[facility] [place] [address], [place] Urine, nitrite presence Negative Normal NEGATIVE [facility] Comment on above: Order Comment: No: D o not add to previous draw Performed By: #### 1 53, ####[facility] [place] [address], [facility] WBC UA 3-5 Abnormal NONE SEEN [facility] Comment on above: Order Comment: No: D o not add to previous draw Performed By: #### 1 53, ####[facility] [place] [address], [facility] BASIC METABOLIC PANELon 05-0 Calcium 8.2 mg/dL Low 8.6-10.3 [facility] Comment on above: Order Comment: No: D o not add to previous draw Performed By: #### 0 0071, 77547, 23809, 26858 ####[facility] [place] [address], [facility] Chloride 107 mmol/L Normal 98-107 [facility] Comment on above: Order Comment: No: D o not add to previous draw Performed By: #### 0 0071, 45175, 38985, 75865 ####[facility] [place] [address], [place] CO2 29 mmol/L Normal 21-31 [facility] Comment on above: Order Comment: No: D o not add to previous draw Performed By: #### 0 0071, 25521, 74152, 63550 ####[facility] [place] [address], [place] Creatinine 1.24 mg/dL High 0.60-1.20 [facility] Comment on above: Order Comment: No: D o not add to previous draw Performed By: #### 0 0071, 10344, 28691, 28761 ####[facility] [place] [address], [facility] eGFR (black) 52 ml/min/1.73sq m Abnormal >60 [facility] Comment on above: Order Comment: No: D o not add to previous draw Performed By: #### 0 0071, 82336, 36661, 63903 ####[facility] [place] [address], [facility] eGFR (non-black) 43 ml/min/1.73sq m Abnormal >60 [facility] Comment on above: Order Comment: No: D o not add to previous draw Performed By: #### 0 0071, 72020, 12375, 23831 ####[facility] [place] [address], [facility] Glucose mass conc 115 mg/dL High 70-100 [facility] Comment on above: Order Comment: No: D o not add to previous draw Performed By: #### 0 0071, 05787, 97385, 25859 ####[facility] [place] [address], [facility] Potassium molar conc 4.1 mmol/L Normal 3.5-5.1 [facility] Comment on above: Order Comment: No: D o not add to previous draw Performed By: #### 0 0071, 35870, 84899, 32585 ####[facility] [place] [address], [facility] Sodium 138 mmol/L Normal 136-145 [facility] Comment on above: Order Comment: No: D o not add to previous draw Performed By: #### 0 0071, 57081, 24736, 79723 ####[facility] Urea nitrogen 12 mg/dL Normal 7-25 [facility] Comment on above: Order Comment: No: D o not add to previous draw Performed By: #### 0 0071, 90689, 67627, 71591 ####[facility] [facility].[address] CBC COMPLETE BLOOD COUNTon 0 - Erythrocyte distribution width Auto Ratio (RBC) 12.1 % Normal 11.5-15.0 [facility] Comment on above: Order Comment: No: D o not add to previous draw Performed By: #### 5 0608 ####[facility] [facility].[address] Erythrocytes (RBC) 0 % Normal 0-0 [facility] Comment on above: Order Comment: No: D o not add to previous draw Performed By: #### 5 0608 ####[facility] [facility].[address] Erythrocytes (RBC) 2.94 10*6/uL Low 3.80-5.00 [facility] Comment on above: Order Comment: No: D o not add to previous draw Performed By: #### 5 0608 ####[facility] [facility].[address] Hematocrit (HCT) 28.2 % Low 36.0-45.0 [facility] Comment on above: Order Comment: No: D o not add to previous draw Performed By: #### 5 0608 ####[facility] [facility].[address] Hemoglobin mass conc (Bld) 8.5 g/dL Low 12.0-15.0 [facility] Comment on above: Order Comment: No: D o not add to previous draw Performed By: #### 5 0608 ####[facility] [place] [address], [facility] MCH 28.9 pg Normal 27.0-33.0 [facility] Comment on above: Order Comment: No: D o not add to previous draw Performed By: #### 5 0608 ####[address] MCHC mass conc (RBC) 30.1 g/dL Low 32.0-35.0 [facility] Comment on above: Order Comment: No: D o not add to previous draw Performed By: #### 5 0608 ####[address] MCV 95.9 fL Normal 82.0-98.0 [facility] Comment on above: Order Comment: No: D o not add to previous draw Performed By: #### 5 0608 ####[address] PLAT CNT 195 10*3/uL Normal 150-400 [facility] Comment on above: Order Comment: No: D o not add to previous draw Performed By: #### 5 0608 ####[address] WBC (Leukocytes) 6.01 10*3/uL Normal 4.00-10.60 [facility] Comment on above: Order Comment: No: D o not add to previous draw Performed By: #### 5 0608 ####[address] BRAIN WO CONTRASTon 09-28 [facility] [address] [place] [address] Brittnee ent Name: MAEGAN DYE : 1950Sex: FAge: Race: WhiteMRN: [id number]. Location: [id number] Status: IVisit #: [id number] Date: 09/27/2017 10:30:00 PMCompleted Date: 09/27/2017 10:49 PMRequesting Provider: MEGHANN REN Attending Provider: STORMY JAMES Report Copy To: Signs & Symptoms: BleedHistory: Patient history not availableComments: Progression of Known BleedExam: CT BRAIN WO CONTRASTAccession #: [id number] ===CT BRAIN WO CONTRAST 09/27/2017 10:49 PM [...] findings. Electronically signed by:Suhail Trinh. Transcribed by: [id number], User Resident: KARSTEN ORELLANAElectronically Signed by: SUHAIL TRINH @ 09/28/2017 06:32 AMI personally read this/these film(s) with this resident Normal [facility] Comment on above: Order Comment: No: D o not add to previous draw Consultationon 09-28-2017 Consultation MR#: [id number] Pt. Name: Maegan Dye Date of Service: 09/28/2017 Room #: [facility] [id number] Birthdate: 1950 Referring Physician: CONSULTATIONCLINICAL SERVICE: Neurosurgery.TRAUMA NAME: Female Hydrogen.REASON FOR CONSULT: Subdural hematoma status post fall.HISTORY OF PRESENT ILLNESS: A 67-year-old woman status post fall. She sadie Eliquis for anticoagulation. She reportedly fell and hit the sidewalk,tripping over the pavement. There was reported loss of consciousness withaltered mental status and she went to [facility] initially forevaluation. There, her head CT showed subdural hematoma on the left side.She was transferred to [facility] for further evaluation and management.The patient was [...] able to be successfully improrted into the [facility] PACS system and thedisc was not available , but she does [...] by:Kyle Ken MD 10/12/2017 06:09 P __Kyle Ken MDDate Dict: 09/28/2017/10:37 A/Kyle Ken MDDate Trans: 09/28/2017 04:01 [id number] c: Tomas Farrell D.O. [address] [facility] [address] Normal [facility] Consultation MR#: [id number] Pt. Name: Maegan Dye Date of Service: 09/27/2017 Room #: [facility] [id number] Birthdate: 1950 Referring Physician: CONSULTATIONTRAUMA NAME: Female Daryl.SERVICES: Surgical ICU.REASON FOR CONSULTATION: Subdural hematoma.HISTORY OF PRESENTING ILLNESS: This is a middle-aged female, presentedinitially to [facility] as a trauma after a mechanical fall. The patientstates she was walking in her backyard and fell on a cement ground fromstanding level. Standby are stated that the patient had loss ofconsciousness and was altered. [facility] scan of the head and neck showed a 4 mm subduralhematoma. No midline shift and no neck injury. Due to this patient'sinjuries, she was transferred to [facility] for further management. Onpresentation, the patient was [...] blood pressure of 108/68, respirations 18, oxygen [id number]% on room air.GENERAL: The patient looks well. [...] Stormy James was present in the [facility].Electronically Signed by:Stormy James MD 10/17/2017 06:49 P __Stormy James MD I personally saw this patient on the day of the encounter, performed thekey portion(s) of the service and participated in the management andconfirm the resident's documentation. Please note there may be anadditional personal documentation from me. Date Dict: 09/27/2017/05:09 P/CANDACE Donaldate Trans: 09/28/2017 03:47 A/[id number] Normal [facility] MAGNESIUM BLOODon 09-28-2017 Magnesium 1.8 mg/dL Low 1.9-2.7 [facility] Comment on above: Order Comment: No: D o not add to previous draw Performed By: #### 0 0071, 00357, 38608, 49650 ####[facility] [facility] [place] [address], [facility] PHOSPHORUS BLOODon 8 Phosphate 4.4 mg/dL Normal 2.5-5.0 [facility] Comment on above: Order Comment: No: D o not add to previous draw Performed By: #### 0 0071, 18944, 67474, 61304 ####[facility] [facility] [place] [address], [facility] TROPONIN-Ion 09-28-2017 Troponin I.cardiac mass conc 0.01 ng/mL Normal 0.00-0.04 [facility] Comment on above: Result Comment: REFE RENCE RANGES: 0.00 - 0.04 ng/ml NORMAL 0.05 - 0.50 ng/ml INDETERMINATE > 0.50 ng/ml CONSISTENT WITH AN M.I. Performed By: #### 1 53, ####[facility] [facility] [place] [address], [facility] ALCOHOLon 09-27-2017 Ethanol NONE DETECTED Normal [facility] Comment on above: Result Comment: Divi de by 1000 to convert mg/dL to percent. Example: 100mg/dL = 0.1%. Performed By: #### 1 53, ####[facility] [facility].[address] APTTon 09-27-2017 aPTT 36.2 s High 25.0-35.0 [facility] Comment on above: Order Comment: No: D [...] THIS PURPOSE. Performed By: #### 5 7307, 10865 ####[facility] [facility].[address] BASIC METABOLIC PANELon Calcium 9.2 mg/dL Normal 8.6-10.3 [facility] Comment on above: Order Comment: No: D o not add to previous draw Performed By: #### 0 0071 ####[facility] [facility] [place] [address], [facility] Chloride 101 mmol/L Normal 98-107 [facility] Comment on above: Order Comment: No: D o not add to previous draw Performed By: #### 0 0071 ####[place] [address] [facility] [place] [address], [facility] CO2 27 mmol/L Normal 21-31 [facility] Comment on above: Order Comment: No: D o not add to previous draw Performed By: #### 0 0071 ####[facility] [place] [address], [facility] Creatinine 1.28 mg/dL High 0.60-1.20 [facility] Comment on above: Order Comment: No: D o not add to previous draw Performed By: #### 0 0071 ####[facility] [place] [address], [facility] eGFR (black) 50 ml/min/1.73sq m Abnormal >60 [facility] Comment on above: Order Comment: No: D o not add to previous draw Performed By: #### 0 0071 ####[facility] eGFR (non-black) 42 ml/min/1.73sq m Abnormal >60 [facility] Comment on above: Order Comment: No: D o not add to previous draw Performed By: #### 0 0071 ####[facility] Glucose mass conc 104 mg/dL High 70-100 [facility] Comment on above: Order Comment: No: D o not add to previous draw Performed By: #### 0 0071 ####[facility] [place] [address], [facility] Potassium molar conc 4.4 mmol/L Normal 3.5-5.1 [facility] Comment on above: Order Comment: No: D o not add to previous draw Performed By: #### 0 0071 ####[facility] [place] [address], [facility] Sodium 134 mmol/L Low 136-145 [facility] Comment on above: Order Comment: No: D o not add to previous draw Performed By: #### 0 0071 ####[facility] Urea nitrogen 13 mg/dL Normal 7-25 [facility] Comment on above: Order Comment: No: D o not add to previous draw Performed By: #### 0 0071 ####[facility] CBC W/DIFFon 09-27-2017 ABS BASOPHILS 0.1 10*3/uL Normal 0.0-0.2 [facility] Comment on above: Performed By: #### 5 0103 ####[facility] ABS IMM GRANS 0.1 10*3/uL Normal 0.0-0.2 [facility] Comment on above: Performed By: #### 5 0103 ####[place] [address] Basophils Auto #/vol (Bld) 0.9 % Normal 0.0-1.0 [facility] Comment on above: Performed By: #### 5 0103 ####[place] [address] Eosinophils 0.2 10*3/uL Normal 0.0-0.5 [facility] Comment on above: Performed By: #### 5 0103 ####[place] [address] Eosinophils/100 leukocytes 2.3 % Normal 0.0-6.0 [facility] Comment on above: Performed By: #### 5 0103 ####[place] [address] Erythrocyte distribution width Auto Ratio (RBC) 12.2 % Normal 11.5-15.0 [facility] Comment on above: Performed By: #### 5 0103 ####[facility] [place] [address], [place] Erythrocytes (RBC) 0 % Normal 0-0 [facility] Comment on above: Performed By: #### 5 0103 ####[facility] Erythrocytes (RBC) 3.31 10*6/uL Low 3.80-5.00 [facility] Comment on above: Performed By: #### 5 0103 ####[facility] Hematocrit (HCT) 30.5 % Low 36.0-45.0 [facility] Comment on above: Performed By: #### 5 0103 ####[facility] Hemoglobin mass conc (Bld) 9.7 g/dL Low 12.0-15.0 [facility] Comment on above: Performed By: #### 5 3 ####[facility] IMMATURE GRANS 0.5 % Normal 0.0-1.0 [facility] Comment on above: Performed By: #### 5 3 ####[facility] Lymphocytes 2.5 10*3/uL Normal 1.2-4.0 [facility] Comment on above: Performed By: #### 5 3 ####[facility] Lymphocytes/100 leukocytes 24.5 % Normal 20.0-45.0 [facility] Comment on above: Performed By: #### 5 3 ####[facility] MCH 29.3 pg Normal 27.0-33.0 [facility] Comment on above: Performed By: #### 5 3 ####[facility].[address] MCHC mass conc (RBC) 31.8 g/dL Low 32.0-35.0 [facility] Comment on above: Performed By: #### 5 0103 ####[facility].[address] MCV 92.1 fL Normal 82.0-98.0 [facility] Comment on above: Performed By: #### 5 0103 ####[facility].[address] Monocytes 0.8 10*3/uL Normal 0.1-1.0 [facility] Comment on above: Performed By: #### 102 ####[facility] [address] MONOS 8.1 % Normal 5.0-12.0 [facility] Comment on above: Performed By: #### 5 0103 ####[facility] [address] Neutrophils 6.4 10*3/uL Normal 1.6-7.6 [facility] Comment on above: Performed By: #### 102 ####[facility].[address] Neutrophils/100 leukocytes 63.7 % Normal 40.0-72.0 [facility] Comment on above: Performed By: #### 5 3 ####[facility] [place] [address], [facility] PLAT CNT 214 10*3/uL Normal 150-400 [facility] Comment on above: Performed By: #### 3 ####[facility].[address] WBC (Leukocytes) 10.06 10*3/uL Normal 4.00-10.60 [facility] Comment on above: Performed By: #### 5 0103 ####[facility] [place] [address], [facility] LACTATE BLOODon 09-27-2017 Lactate 0.6 mmol/L Normal .5-2.2 [facility] Comment on above: Order Comment: No: D o not add to previous draw Performed By: #### 1 0054, [id number] ####[facility].[address] PROTHROMBIN TIMEon 8 INR Coag RelTime (PPP) 1.31 {INR} High 0.91-1.16 [facility] Comment on above: Order Comment: No: D [...] OF ACTION, CLINICALEFFECTIVENESS, AND OPTIMAL THERAPEUTIC RANGE. [id number]. Performed By: #### 5 [id number], [id number] ####[facility].[address] Prothrombin time (PT) Coag time (PPP) 16.3 s High 12.3-14.8 [facility] Comment on above: Order Comment: No: D o not add to previous draw Result Comment: ALL RESULTS MUST BE INTERPRETED WITH RESPECT TO BLOOD DRAWING ARTIFACTOR DILUTION ERROR OF ANTICOAGULANT AT THE TIME OF SAMPLING. Performed By: #### 5 [id number], [id number] ####[place] [id number] [address] Vital Signs Date Time Vital Sign Value Performing Clinician Facility 01-28-2024 18:26-0400 Body temperature 97.88 [degF] [facility] 01-28-2024 18:26-0400 Diastolic blood pressure 68 mm[Hg] [facility] 01-28-2024 18:26-0400 Heart rate 76 /min [facility] 01-28-2024 18:26-0400 Respiratory rate 16 /min [facility] 01-28-2024 18:26-0400 SaO2% (BldA) [Mass fraction] 96 % [facility] 01-28-2024 18:26-0400 Systolic blood pressure 142 mm[Hg] [facility] 01-10-2024 20:55-0400 Body temperature 97.7 [degF] Kaylinn Dokken [facility] 01-10-2024 20:55-0400 Diastolic blood pressure 66 mm[Hg] Kaylinn Dokken [facility] 01-10-2024 20:55-0400 Heart rate 93 /min Kaylinn Dokken [facility] 01-10-2024 20:55-0400 Respiratory rate 16 /min Kaylinn Dokken [facility] 01-10-2024 20:55-0400 SaO2% (BldA) [Mass fraction] 96 % Kaylinn Dokken [facility] 01-10-2024 20:55-0400 Systolic blood pressure 157 mm[Hg] Mati Taylor [facility] 01-02-2024 10:58-0400 Blood Pressure Location Amarilis Bordner [facility] 01-02-2024 10:58-0400 Body temperature 99.68 [degF] Amarilis Bordner [facility] 01-02-2024 10:58-0400 Diastolic blood pressure 68 mm[Hg] Amarilis Bordner [facility] 01-02-2024 10:58-0400 Heart rate 76 /min Amarilis Bordner [facility] 01-02-2024 10:58-0400 Respiratory rate 18 /min Amarilis Bordner [facility] 01-02-2024 10:58-0400 Systolic blood pressure 148 mm[Hg] Amarilis Bordner [facility] 09-12-2023 15:34-0400 Hourly Rounding [facility] 09-12-2023 15:34-0400 Promise to Return Ana [facility] 09-12-2023 14:36-0400 Hourly Rounding Ana [facility] 09-12-2023 14:36-0400 Promise to Return Ana [facility] 09-12-2023 13:15-0400 [facility] 09-12-2023 13:13-0400 Promise to Return Ana [facility] 09-12-2023 10:00-0400 Body temperature 98.24 [degF] [facility] 09-12-2023 10:00-0400 Diastolic blood pressure 70 mm[Hg] [facility] 09-12-2023 10:00-0400 Heart rate 59 /min [facility] 09-12-2023 10:00-0400 SaO2% (BldA) [Mass fraction] 95 % [facility] 09-12-2023 10:00-0400 Systolic blood pressure 130 mm[Hg] [facility] 09-12-2023 08:00-0400 Body temperature 97.88 [degF] [facility] 09-12-2023 08:00-0400 Heart rate 52 /min [facility] 09-12-2023 08:00-0400 Systolic blood pressure 126 mm[Hg] [facility] 09-11-2023 19:49-0400 Heart rate 59 /min [facility] 09-11-2023 19:49-0400 SaO2% (BldA) [Mass fraction] 94 % [facility] 09-11-2023 19:45-0400 Body temperature 97.88 [degF] [facility] 09-11-2023 19:44-0400 Diastolic blood pressure 78 mm[Hg] [facility] 09-11-2023 19:44-0400 Mean blood pressure 93 mm[Hg] [facility] 09-11-2023 19:44-0400 Systolic blood pressure 123 mm[Hg] [facility] 09-11-2023 19:00-0400 Blood Pressure Location [facility] 09-11-2023 19:00-0400 Respiratory rate 16 /min [facility] 09-11-2023 17:00-0400 Respiratory rate 17 /min [facility]-11-2023 15:59-0400 Body temperature 97.34 [degF] [facility] 09-11-2023 15:59-0400 Mean blood pressure 92 mm[Hg] [facility] 11:35-0400 Mean blood pressure 96 mm[Hg] [facility] 07:00-0400 Body temperature 97.7 [degF] [facility] 09-11-2023 07:00-0400 Mean blood pressure 89 mm[Hg] [facility] 01:13-0400 Mean blood pressure 89 mm[Hg] [facility]-09[facility] 01:20-0400 Heart rate 66 /min [facility] 09-08-2023 22:00-0400 Heart rate 85 /min [facility] 09-08-2023 15:05-0400 Heart rate 75 /min [facility] 09-07-2023 22:34-0400 Respiratory rate 18 /min [facility] 09-07-2023 22:00-0400 Respiratory rate 20 /min [facility] 09-06-2023 18:38-0400 Body temperature 98.5 [degF] ANCIENT ART CURATOR Bebe Saffle Work Phone: [facility] 09-06-2023 18:38-0400 Diastolic blood pressure 74 mm[Hg] ANCIENT ART CURATOR Bebe Saffle Work Phone: [facility] 09-06-2023 18:38-0400 Heart rate 70 /min ANCIENT ART CURATOR Bebe Saffle Work Phone: [facility] 09-06-2023 18:38-0400 Respiratory rate 18 /min ANCIENT ART CURATOR Bebe Saffle Work Phone: [facility] 09-06-2023 18:38-0400 SaO2% (BldA) [Mass fraction] 94 % ANCIENT ART CURATOR Bebe Saffle Work Phone: [facility] 09-06-2023 18:38-0400 Systolic blood pressure 155 mm[Hg] ANCIENT ART CURATOR Bebe Saffle Work Phone: [facility] 09-06-2023 14:02-0400 Body height 157.48 cm ANCIENT ART CURATOR Bebe Saffle Work Phone: [facility] 09-06-2023 14:02-0400 Body weight 61.8 kg ANCIENT ART CURATOR Bebe Saffle Work Phone: [facility] 09-02-2023 07:30-0400 Body temperature 97.3 [degF] ANCIENT ART CURATOR Bebe Saffle Work Phone: [facility] 09-02-2023 07:30-0400 Diastolic blood pressure 73 mm[Hg] ANCIENT ART CURATOR Bebe Saffle Work Phone: [facility] 09-02-2023 07:30-0400 Heart rate 77 /min ANCIENT ART CURATOR Bebe Saffle Work Phone: [facility] 09-02-2023 07:30-0400 Respiratory rate 16 /min ANCIENT ART CURATOR Bebe Saffle Work Phone: [facility] 09-02-2023 07:30-0400 SaO2% (BldA) [Mass fraction] 94 % ANCIENT ART CURATOR Bebe Saffle Work Phone: [facility] 09-02-2023 07:30-0400 Systolic blood pressure 147 mm[Hg] ANCIENT ART CURATOR Bebe Saffle Work Phone: [facility] 09-01-2023 09:00-0400 Body weight 59 kg ANCIENT ART CURATOR Bebe Saffle Work Phone: [facility] 08-28-2023 14:35-0400 Body height 157.48 cm SVITLANA Ortiz Work Phone: [facility] 08-27-2023 09:31-0400 Diastolic blood pressure 71 mm[Hg] Johny Willson [facility] 08-27-2023 09:31-0400 Heart rate 71 /min Johny Willson [facility] 08-27-2023 09:31-0400 Mean blood pressure 92 mm[Hg] Johny Willson [facility] 08-27-2023 09:31-0400 Respiratory rate 18 /min Johny Willson [facility] 08-27-2023 09:31-0400 SaO2% (BldA) [Mass fraction] 95 % Johny Willson [facility] 08-27-2023 09:31-0400 Systolic blood pressure 133 mm[Hg] Johny Willson [facility] 08-27-2023 08:04-0400 Body temperature 97.88 [degF] Johny Willson [facility] 08-27-2023 08:04-0400 Diastolic blood pressure 67 mm[Hg] Johny Willson [facility] 08-27-2023 08:04-0400 Heart rate 70 /min Johny Willson [facility] 08-27-2023 08:04-0400 Respiratory rate 18 /min Johny Willson [facility] 08-27-2023 08:04-0400 SaO2% (BldA) [Mass fraction] 97 % Johny Willson [facility] 08-27-2023 08:04-0400 Systolic blood pressure 128 mm[Hg] Johny Willson [facility] 08-22-2023 14:54-0400 Diastolic blood pressure 60 mm[Hg] ANCIENT ART CURATOR Bebe Saffle Work Phone: [facility] 08-22-2023 14:54-0400 Heart rate 60 /min ANCIENT ART CURATOR Bebe Saffle Work Phone: [facility] 08-22-2023 14:54-0400 Respiratory rate 18 /min ANCIENT ART CURATOR Bebe Saffle Work Phone: [facility] 08-22-2023 14:54-0400 SaO2% (BldA) [Mass fraction] 95 % ANCIENT ART CURATOR Bebe Saffle Work Phone: [facility] 08-22-2023 14:54-0400 Systolic blood pressure 128 mm[Hg] ANCIENT ART CURATOR Bebe Saffle Work Phone: [facility] 08-22-2023 11:57-0400 Body height 157.48 cm ANCIENT ART CURATOR Bebe Saffle Work Phone: [facility] 08-22-2023 11:57-0400 Body weight 58.96 kg ANCIENT ART CURATOR Bebe Saffle Work Phone: [facility] 08-22-2023 11:54-0400 Body temperature 97.7 [degF] ANCIENT ART CURATOR Bebe Saffle Work Phone: [facility] 08-21-2023 15:08-0400 Body temperature 98.24 [degF] Johny Willson [facility] 08-21-2023 15:08-0400 Diastolic blood pressure 79 mm[Hg] Johny Willson [facility] 08-21-2023 15:08-0400 Heart rate 73 /min Johny Willson [facility] 08-21-2023 15:08-0400 Respiratory rate 18 /min Johny Demetris [facility] 08-21-2023 15:08-0400 SaO2% (BldA) [Mass fraction] 96 % Johny Demetris [facility] 08-21-2023 15:08-0400 Systolic blood pressure 123 mm[Hg] Johny Demetris [facility] 08-14-2023 11:10-0400 Diastolic blood pressure 80 mm[Hg] Johny Demetris [facility] 08-14-2023 11:10-0400 Heart rate 60 /min Johny Demetris [facility] 08-14-2023 11:10-0400 Mean blood pressure 91 mm[Hg] Johny Demetris [facility] 08-14-2023 11:10-0400 Respiratory rate 18 /min Johny Demetris [facility] 08-14-2023 11:10-0400 SaO2% (BldA) [Mass fraction] 95 % Johny Demetris [facility] 08-14-2023 11:10-0400 Systolic blood pressure 112 mm[Hg] Johny Demetris [facility] 08-14-2023 10:28-0400 Diastolic blood pressure 78 mm[Hg] Johny Demetris [facility] 08-14-2023 10:28-0400 Heart rate 56 /min Johny Demetris [facility] 08-14-2023 10:28-0400 Mean blood pressure 95 mm[Hg] Johny Demetris [facility] 08-14-2023 10:28-0400 Respiratory rate 18 /min Johny Demetris [facility] 08-14-2023 10:28-0400 SaO2% (BldA) [Mass fraction] 95 % Johny Willson [facility] 08-14-2023 10:28-0400 Systolic blood pressure 129 mm[Hg] Johny Demetris [facility] 08-14-2023 09:21-0400 Body temperature 98.24 [degF] Johny Demetris [facility] 08-14-2023 09:21-0400 Diastolic blood pressure 86 mm[Hg] Johny Demetris [facility] 08-14-2023 09:21-0400 Heart rate 62 /min Johnybhavani Willson [facility] 08-14-2023 09:21-0400 Respiratory rate 18 /min Johny Demetris [facility] 08-14-2023 09:21-0400 SaO2% (BldA) [Mass fraction] 95 % Johny Demetris [facility] 08-14-2023 09:21-0400 Systolic blood pressure 125 mm[Hg] Johny Demetris [facility] 08-13-2023 19:42-0400 Body temperature 98.06 [degF] Kaylinn Dokken [facility] 08-13-2023 19:42-0400 Diastolic blood pressure 81 mm[Hg] Kaylinn Dokken [facility] 08-13-2023 19:42-0400 Heart rate 78 /min Kaylinn Dokken [facility] 08-13-2023 19:42-0400 Respiratory rate 18 /min Kaylinn Dokken [facility] 08-13-2023 19:42-0400 SaO2% (BldA) [Mass fraction] 94 % Kaylinn Dokken [facility] 08-13-2023 19:42-0400 Systolic blood pressure 128 mm[Hg] Kaylinn Dokken [facility] 08-12-2023 20:00-0400 Diastolic blood pressure 71 mm[Hg] Kaylinn Dokken [facility] 08-12-2023 20:00-0400 Heart rate 65 /min Kaylinn Dokken [facility] 08-12-2023 20:00-0400 Mean blood pressure 92 mm[Hg] Kaylinn Dokken [facility] 08-12-2023 20:00-0400 SaO2% (BldA) [Mass fraction] 95 % Kaylinn Dokken [facility] 08-12-2023 20:00-0400 Systolic blood pressure 135 mm[Hg] Kaylinn Dokken [facility] 08-12-2023 19:30-0400 Diastolic blood pressure 74 mm[Hg] Kaylinn Dokken [facility] 08-12-2023 19:30-0400 Heart rate 68 /min Kaylinn Dokken [facility] 08-12-2023 19:30-0400 Mean blood pressure 93 mm[Hg] Kaylinn Dokken [facility] 08-12-2023 19:30-0400 Respiratory rate 16 /min Kaylinn Dokken [facility] 08-12-2023 19:30-0400 SaO2% (BldA) [Mass fraction] 92 % Kaylinn Dokken [facility] 08-12-2023 19:30-0400 Systolic blood pressure 130 mm[Hg] Kaylinn Dokken [facility] 08-12-2023 18:09-0400 Body temperature 98.06 [degF] Kaylinn Dokken [facility] 08-12-2023 18:09-0400 Diastolic blood pressure 69 mm[Hg] Kaylinn Dokken [facility] 08-12-2023 18:09-0400 Heart rate 63 /min Kaylinn Dokken [facility] 08-12-2023 18:09-0400 Respiratory rate 18 /min Kaylinn Dokken [facility] 08-12-2023 18:09-0400 SaO2% (BldA) [Mass fraction] 91 % Kaylinn Dokken [facility] 08-12-2023 18:09-0400 Systolic blood pressure 125 mm[Hg] Kaylinn Dokken [facility] 08-10-2023 00:45-0400 Diastolic blood pressure 68 mm[Hg] Santiago Len [facility] 08-10-2023 00:45-0400 Heart rate 71 /min Santiago Len [facility] 08-10-2023 00:45-0400 Respiratory rate 20 /min Santiago Len [facility] 08-10-2023 00:45-0400 SaO2% (BldA) [Mass fraction] 93 % Santiago Len [facility] 08-10-2023 00:45-0400 Systolic blood pressure 133 mm[Hg] Santiago Len [facility] 08-09-2023 23:17-0400 Body temperature 97.88 [degF] Santiago Len [facility] 08-09-2023 23:17-0400 Diastolic blood pressure 60 mm[Hg] Santiago Len [facility] 08-09-2023 23:17-0400 Heart rate 71 /min Santiago Len [facility] 08-09-2023 23:17-0400 Respiratory rate 20 /min Santiago Len [facility] 08-09-2023 23:17-0400 SaO2% (BldA) [Mass fraction] 93 % Santiago Len [facility] 08-09-2023 23:17-0400 Systolic blood pressure 120 mm[Hg] Santiago Len [facility] 08-07-2023 17:00-0400 Diastolic blood pressure 61 mm[Hg] [facility] 08-07-2023 17:00-0400 Heart rate 67 /min [facility] 08-07-2023 17:00-0400 Mean blood pressure 83 mm[Hg] [facility] 08-07-2023 17:00-0400 SaO2% (BldA) [Mass fraction] 93 % [facility] 08-07-2023 17:00-0400 Systolic blood pressure 126 mm[Hg] [facility] 08-07-2023 16:30-0400 Diastolic blood pressure 55 mm[Hg] [facility] 08-07-2023 16:30-0400 Mean blood pressure 74 mm[Hg] [facility] 08-07-2023 16:30-0400 Respiratory rate 18 /min [facility] 08-07-2023 16:30-0400 Systolic blood pressure 113 mm[Hg] [facility] 08-07-2023 16:00-0400 Diastolic blood pressure 50 mm[Hg] [facility] 08-07-2023 16:00-0400 Mean blood pressure 68 mm[Hg] [facility] 08-07-2023 16:00-0400 Systolic blood pressure 105 mm[Hg] [facility] 08-07-2023 15:30-0400 Heart rate 74 /min [facility] 08-07-2023 15:30-0400 SaO2% (BldA) [Mass fraction] 92 % [facility] 08-07-2023 15:18-0400 Body temperature 98.06 [degF] [facility] 08-07-2023 15:18-0400 Heart rate 77 /min [facility] 07-05-2023 17:30-0500 Diastolic blood pressure 71 mm[Hg] ANCIENT ART CURATOR Bebe Saffle Work Phone: [facility] 07-05-2023 17:30-0500 Heart rate 71 /min ANCIENT ART CURATOR Bebe Saffle Work Phone: [facility] 07-05-2023 17:30-0500 Respiratory rate 16 /min ANCIENT ART CURATOR Bebe Saffle Work Phone: [facility] 07-05-2023 17:30-0500 SaO2% (BldA) [Mass fraction] 95 % ANCIENT ART CURATOR Bebe Saffle Work Phone: [facility] 07-05-2023 17:30-0500 Systolic blood pressure 138 mm[Hg] ANCIENT ART CURATOR Bebe Saffle Work Phone: [facility] 07-05-2023 15:44-0500 Body height 157.48 cm ANCIENT ART CURATORLukas Ortiz Work Phone: [facility] 07-05-2023 15:44-0500 Body temperature 97.8 [degF] SVITLANA Ortiz Work Phone: [facility] 07-05-2023 15:44-0500 Body weight 59.87 kg ANCIENT ART CURATORLukas Ortiz Work Phone: [facility] 05-26-2023 18:53-0500 Body temperature 98.24 [degF] Carlos Coates [facility] 05-26-2023 18:53-0500 Diastolic blood pressure 79 mm[Hg] Carlos Coates [facility] 05-26-2023 18:53-0500 Heart rate 99 /min Carlos Coates [facility] 05-26-2023 18:53-0500 Respiratory rate 18 /min Carlos Coates [facility] 05-26-2023 18:53-0500 SaO2% (BldA) [Mass fraction] 93 % Carlos Coates [facility] 05-26-2023 18:53-0500 Systolic blood pressure 143 mm[Hg] Carlos Coates [facility] 02-01-2023 23:48-0400 Nursing Progress Note Reason Other: pt left via [facility] car. Johny Willson [facility] 02-01-2023 23:13-0400 Diastolic blood pressure 70 mm[Hg] Johny Willson [facility] 02-01-2023 23:13-0400 Heart rate 73 /min Johny Willson [facility] 02-01-2023 23:13-0400 Mean blood pressure 93 mm[Hg] Johny Demetris [facility] 02-01-2023 23:13-0400 Nursing Progress Note Reason Other: pt aware she is being transferred to [facility]. up to bathroom Johnybhavani Willson [facility] 02-01-2023 23:13-0400 SaO2% (BldA) [Mass fraction] 93 % Johny Demetris [facility] 02-01-2023 23:13-0400 Systolic blood pressure 139 mm[Hg] Johny Demetris [facility] 02-01-2023 23:12-0400 Diastolic blood pressure 70 mm[Hg] Johny Demetris [facility] 02-01-2023 23:12-0400 Heart rate 71 /min Johny Demetris [facility] 02-01-2023 23:12-0400 Respiratory rate 16 /min Johny Demetris [facility] 02-01-2023 23:12-0400 SaO2% (BldA) [Mass fraction] 93 % Johny Demetris [facility] 02-01-2023 23:12-0400 Systolic blood pressure 139 mm[Hg] Johny Demetris [facility] 02-01-2023 23:06-0400 Nursing Progress Note Reason Other: report called to [facility]. pt resting in bed Johny Demetris [facility] 02-01-2023 19:43-0400 Diastolic blood pressure 85 mm[Hg] Johny Demetris [facility] 02-01-2023 19:43-0400 Heart rate 68 /min Johny Demetris [facility] 02-01-2023 19:43-0400 Mean blood pressure 95 mm[Hg] Johny Willson [facility] 02-01-2023 19:43-0400 SaO2% (BldA) [Mass fraction] 94 % Johny Willson [facility] 02-01-2023 19:43-0400 Systolic blood pressure 115 mm[Hg] Johny Demetris [facility] 02-01-2023 19:27-0400 Heart rate 71 /min Johny Willson [facility] 02-01-2023 19:27-0400 Respiratory rate 16 /min Johny Willson [facility] 02-01-2023 15:08-0400 Body temperature 98.42 [degF] Johny Willson [facility] 02-01-2023 15:08-0400 Heart rate 70 /min Johny Willson [facility] 02-01-2023 15:08-0400 Respiratory rate 16 /min Johny Willson [facility] 01-30-2023 13:21-0400 Body weight 51.71 kg Nurse Namrata Work Phone: [facility] 01-30-2023 13:21-0400 Diastolic blood pressure 78 mm[Hg] Nurse Namrata Work Phone: [facility] 01-30-2023 13:21-0400 Heart rate 77 /min Nurse Namrata Work Phone: [facility] 01-30-2023 13:21-0400 Systolic blood pressure 128 mm[Hg] Nurse Namrata Work Phone: [facility] 01-29-2023 14:30-0400 Diastolic blood pressure 55 mm[Hg] Frantz Curran APRN.CNP Work Phone: [facility] 01-29-2023 14:30-0400 Heart rate 63 /min Frantz Curran ANCIENT ART CURATOR.DEFLASH AND WASH OPERATOR Work Phone: [facility] 01-29-2023 14:30-0400 Systolic blood pressure 132 mm[Hg] Frantz Curran ANCIENT ART CURATOR.DEFLASH AND WASH OPERATOR Work Phone: [facility] 01-06-2023 17:51-0400 Body temperature 98.24 [degF] Chandan Adhikari [facility] 01-06-2023 17:51-0400 Diastolic blood pressure 68 mm[Hg] Chandan Adhikari [facility] 01-06-2023 17:51-0400 Heart rate 82 /min Chandan Adhikari [facility] 01-06-2023 17:51-0400 Respiratory rate 16 /min Chandan Adhikari [facility] 01-06-2023 17:51-0400 SaO2% (BldA) [Mass fraction] 97 % Chandan Adhikari [facility] 01-06-2023 17:51-0400 Systolic blood pressure 104 mm[Hg] Chandan Adhikari [facility] 01-04-2023 15:01-0400 Diastolic blood pressure 52 mm[Hg] Chandan Adhikari [facility] 01-04-2023 15:01-0400 Heart rate 57 /min Chandan Adhikari [facility] 01-04-2023 15:01-0400 Mean blood pressure 72 mm[Hg] Cahndan Munoze [facility] 01-04-2023 15:01-0400 Respiratory rate 17 /min Chandan Adhikari [facility] 01-04-2023 15:01-0400 SaO2% (BldA) [Mass fraction] 96 % Chandan Onofre [facility] 01-04-2023 15:01-0400 Systolic blood pressure 112 mm[Hg] Chandan Adhikari [facility] 12-29-2022 14:01-0400 Diastolic blood pressure 65 mm[Hg] Carlos Coates [facility] 12-29-2022 14:01-0400 Heart rate 58 /min Carlos Jaxon [facility] 12-29-2022 14:01-0400 Mean blood pressure 83 mm[Hg] Carlos Jaxon [facility] 12-29-2022 14:01-0400 Respiratory rate 18 /min Carlos Jaxon [facility] 12-29-2022 14:01-0400 SaO2% (BldA) [Mass fraction] 94 % Carlos Jaxon [facility] 12-29-2022 14:01-0400 Systolic blood pressure 120 mm[Hg] Carlos Jaxon [facility] 12-29-2022 12:36-0400 Body temperature 99.14 [degF] Carlos Coates [facility] 12-29-2022 12:36-0400 Diastolic blood pressure 65 mm[Hg] Carlos Jaxon [facility] 12-29-2022 12:36-0400 Heart rate 61 /min Carlos Jaxon [facility] 12-29-2022 12:36-0400 Respiratory rate 16 /min Carlos Jaxon [facility] 12-29-2022 12:36-0400 SaO2% (BldA) [Mass fraction] 94 % Carlos Jaxon [facility] 12-29-2022 12:36-0400 Systolic blood pressure 125 mm[Hg] Carlos Coates [facility] 12-23-2022 15:00-0400 SaO2% (BldA) [Mass fraction] 96 % [facility] 12-23-2022 14:30-0400 Diastolic blood pressure 60 mm[Hg] [facility] 12-23-2022 14:30-0400 Heart [facility] 62 /[facility] [place] 12-23-2022 14:30-0400 Mean blood pressure 82 mm[Hg] [facility] 12-23-2022 14:30-0400 Respiratory rate 20 /min [facility] [place] 12-23-2022 14:30-0400 SaO2% (BldA) [Mass fraction] 95 % [facility] [place] 12-23-2022 14:30-0400 Systolic blood pressure 125 mm[Hg] [facility] [place] 12-23-2022 13:31-0400 Body temperature 98.42 [degF] [facility] [place] 12-23-2022 13:31-0400 Diastolic blood pressure 67 mm[Hg] [facility] [place] 12-23-2022 13:31-0400 Heart rate 72 /min [facility] [place] 12-23-2022 13:31-0400 Respiratory rate 20 /min [facility] [place] 12-23-2022 13:31-0400 SaO2% (BldA) [Mass fraction] 93 % [facility] [place] 12-23-2022 13:31-0400 Systolic blood pressure 129 mm[Hg] [facility] [place] 12-23-2022 13:13-0400 Body temperature 98.42 [degF] [facility] [place] 12-23-2022 13:13-0400 Diastolic blood pressure 71 mm[Hg] [facility] [place] 12-23-2022 13:13-0400 Heart rate 78 /min [facility] [place] 12-23-2022 13:13-0400 Respiratory rate 19 /min [facility] [place] 12-23-2022 13:13-0400 Systolic blood pressure 127 mm[Hg] [facility] [place] 06-11-2022 12:30-0500 Body height 157.48 cm Clark Hernandez Other [facility] Other 06-11-2022 12:30-0500 Diastolic blood pressure 70 mm[Hg] Clark Hernandez Other [email or web address] [facility] Other 06-11-2022 12:30-0500 SaO2% (BldA) [Mass fraction] 95 % Clark Hernandez Other [email or web address] [facility] Other 06-11-2022 12:30-0500 Systolic blood pressure 110 mm[Hg] Clark Hernandez Other [email or web address] [facility] Other 06-11-2022 07:30-0500 Body temperature 98 [degF] DO Tomas Farrell Work Phone: [facility] 06-11-2022 07:30-0500 Diastolic blood pressure 66 mm[Hg] DO Tomas Farrell Work Phone: [facility] 06-11-2022 07:30-0500 Heart rate 89 /min DO Tomas Farrell Work Phone: [facility] 06-11-2022 07:30-0500 Respiratory rate 18 /min DO Tomas Farrell Work Phone: [facility] 06-11-2022 07:30-0500 SaO2% (BldA) [Mass fraction] 94 % DO Tomas Farrell Work Phone: [facility] 06-11-2022 07:30-0500 Systolic blood pressure 101 mm[Hg] DO Tomas Farrell Work Phone: [facility] 06-10-2022 18:17-0500 Body height 154.94 cm DO Tomas Farrell Work Phone: [facility] 06-10-2022 09:00-0500 Body weight 55 kg DO Tomas Farrell Work Phone: [facility] 05-25-2022 16:00-0500 Diastolic blood pressure 91 mm[Hg] Santiago Len [facility] 05-25-2022 16:00-0500 Heart rate 79 /min Santiago Len [facility] 05-25-2022 16:00-0500 Mean blood pressure 106 mm[Hg] Santiago Len [facility] 05-25-2022 16:00-0500 SaO2% (BldA) [Mass fraction] 97 % Santiago Len [facility] 05-25-2022 16:00-0500 Systolic blood pressure 137 mm[Hg] Santiago Len [facility] 05-25-2022 15:30-0500 Diastolic blood pressure 78 mm[Hg] Santiago Len [facility] 05-25-2022 15:30-0500 Heart rate 88 /min Santiago Len [facility] 05-25-2022 15:30-0500 Mean blood pressure 101 mm[Hg] Santiago Len [facility] 05-25-2022 15:30-0500 Respiratory rate 21 /min Santiago Len [facility] 05-25-2022 15:30-0500 SaO2% (BldA) [Mass fraction] 95 % Santiago Len [facility] 05-25-2022 15:30-0500 Systolic blood pressure 146 mm[Hg] Santiago Len [facility] 05-25-2022 14:31-0500 Diastolic blood pressure 83 mm[Hg] Santiago Len [facility] 05-25-2022 14:31-0500 Heart rate 95 /min Santiago Len [facility] 05-25-2022 14:31-0500 Mean blood pressure 107 mm[Hg] Santiago Len [facility] 05-25-2022 14:31-0500 Respiratory rate 19 /min Santiago Len [facility] 05-25-2022 14:31-0500 SaO2% (BldA) [Mass fraction] 94 % Santiago Len [facility] 05-25-2022 14:31-0500 Systolic blood pressure 156 mm[Hg] Santiago Len [facility] 05-25-2022 14:01-0500 Heart rate 104 /min Santiago Len [facility] 05-25-2022 13:00-0500 Heart rate 110 /min Santiago Len [facility] 05-25-2022 11:00-0500 Heart rate 87 /min Santiago Len [facility] 05-25-2022 07:00-0500 Body temperature 98.24 [degF] Santiago Len [facility] 05-25-2022 05:00-0500 Body temperature 98.6 [degF] Santiago Len [facility] 05-24-2022 22:00-0500 gluc 91 mg/dL Santaigo Len [facility] 05-24-2022 22:00-0500 gluc Santiago Len [facility] 05-03-2022 11:50-0500 Body temperature 97.88 [degF] Chandan Adhikari [facility] 05-03-2022 11:50-0500 Diastolic blood pressure 67 mm[Hg] Chandan Adhikari [facility] 05-03-2022 11:50-0500 Heart rate 100 /min Chandan Adhikari [facility] 05-03-2022 11:50-0500 Respiratory rate 16 /min Chandan Adhikari [facility] 05-03-2022 11:50-0500 SaO2% (BldA) [Mass fraction] 95 % Chandan Adhikari [facility] 05-03-2022 11:50-0500 Systolic blood pressure 124 mm[Hg] Chandan Adhikari [facility] 05-02-2022 21:43-0500 Body temperature 97.52 [degF] Julio Cinn Dokken [facility] 05-02-2022 21:43-0500 Diastolic blood pressure 81 mm[Hg] Kaylinn Dokken [facility] 05-02-2022 21:43-0500 Heart rate 85 /min Kaylinn Dokken [facility] 05-02-2022 21:43-0500 Respiratory rate 20 /min Kaylinn Dokken [facility] 05-02-2022 21:43-0500 SaO2% (BldA) [Mass fraction] 100 % Kaylinn Dokken [facility] 05-02-2022 21:43-0500 Systolic blood pressure 125 mm[Hg] Mati Gokken [facility] 04-25-2022 14:04-0500 Blood Pressure Location Tomas JOSE [facility] 04-25-2022 14:04-0500 Body temperature 98.06 [degF] Tomas JOSE [facility] 04-25-2022 14:04-0500 Diastolic blood pressure 60 mm[Hg] Tomas FARRELL [facility] 04-25-2022 14:04-0500 Heart rate 58 /min Tomas FARRELL [facility] 04-25-2022 14:04-0500 SaO2% (BldA) [Mass fraction] 95 % Tomasjanay FARRELL [facility] 04-25-2022 14:04-0500 Systolic blood pressure 126 mm[Hg] Tomas JOSE [facility] 04-19-2022 12:09-0500 Diastolic blood pressure 67 mm[Hg] Hasan AMIR [facility] 04-19-2022 12:09-0500 Heart rate 61 /min Hasan AMIR [facility] 04-19-2022 12:09-0500 Mean blood pressure 85 mm[Hg] Hasan AMIR [facility] 04-19-2022 12:09-0500 SaO2% (BldA) [Mass fraction] 93 % Hasan AMIR [facility] 04-19-2022 12:09-0500 Systolic blood pressure 122 mm[Hg] Hasan AMIR [facility] 04-19-2022 12:00-0500 Body temperature 96.26 [degF] Hasan AMIR [facility] 04-19-2022 12:00-0500 Hourly Rounding Hasan AMIR [facility] 04-19-2022 11:00-0500 Hourly Rounding Hasan AMIR [facility] 04-19-2022 10:00-0500 Hourly Rounding Hasan AMIR [facility] 04-19-2022 08:48-0500 Blood Pressure Location Hasan AMIR [facility] 04-19-2022 08:48-0500 Body temperature 98.06 [degF] Hasan AMIR [facility] 04-19-2022 08:48-0500 BP/Pulse Patient Position Hasan AMIR [facility] 04-19-2022 08:48-0500 Diastolic blood pressure 60 mm[Hg] Hasan AMIR [facility] 04-19-2022 08:48-0500 Heart rate 60 /min Hasan AMIR [facility] 04-19-2022 08:48-0500 Mean blood pressure 75 mm[Hg] Hasan AMIR [facility] 04-19-2022 08:48-0500 Respiratory rate 18 /min Hasan AMIR [facility] 04-19-2022 08:48-0500 SaO2% (BldA) [Mass fraction] 92 % Hasan AMIR [facility] 04-19-2022 08:48-0500 Systolic blood pressure 105 mm[Hg] Hasan AMIR [facility] 04-18-2022 23:50-0500 Body temperature 97.52 [degF] Hasan AMIR [facility] 04-18-2022 23:50-0500 Diastolic blood pressure 57 mm[Hg] Hasan AMIR [facility] 04-18-2022 23:50-0500 Heart rate 54 /min Hasan AMIR [facility] 04-18-2022 23:50-0500 Mean blood pressure 70 mm[Hg] Hasan AMIR [facility] 04-18-2022 23:50-0500 SaO2% (BldA) [Mass fraction] 92 % Hasan AMIR [facility] 04-18-2022 23:50-0500 Systolic blood pressure 96 mm[Hg] Hasan AMIR [facility] 04-18-2022 23:50-0500 Respiratory rate 17 /min Hasan AMIR [facility] 04-18-2022 23:00-0500 Blood Pressure Location Hasan AMIR [facility] 04-18-2022 23:00-0500 Promise to Return Hasan AMIR [facility] 04-18-2022 22:12-0500 Promise to Return Hasan AMIR [facility] 04-18-2022 21:00-0500 Promise to Return Hasan AMIR [facility] 04-18-2022 19:00-0500 Mean blood pressure 71 mm[Hg] Hasan AMIR [facility] 04-18-2022 19:00-0500 Respiratory rate 14 /min Hasan AMIR [facility] 04-18-2022 15:55-0500 BP/Pulse Patient Position Hasan AMIR [facility] 04-18-2022 15:55-0500 Mean blood pressure 72 mm[Hg] Hasan AMIR [facility] 04-18-2022 00:00-0500 Respiratory rate 16 /min Hasan AMIR [facility] 04-17-2022 16:15-0500 Heart rate 58 /min Hasan AMIR [facility] 04-17-2022 15:17-0500 Mean blood pressure 77 mm[Hg] Hasan AMIR [facility] 04-17-2022 10:18-0500 Heart rate 56 /min Hasan AMIR [facility] 03-04-2022 13:17-0400 Blood Pressure Location Tatum Orzech [facility] 03-04-2022 13:17-0400 Body temperature 98.06 [degF] Tatum Orzech [facility] 03-04-2022 13:17-0400 Diastolic blood pressure 66 mm[Hg] Tatum Orzech [facility] 03-04-2022 13:17-0400 Heart rate 72 /min Tatum Orzech [facility] 03-04-2022 13:17-0400 SaO2% (BldA) [Mass fraction] 94 % Tatum Orzech [facility] 03-04-2022 13:17-0400 Systolic blood pressure 122 mm[Hg] Tatum Liang [facility] 02-17-2022 21:30-0400 Diastolic blood pressure 76 mm[Hg] [facility] [place] 02-17-2022 21:30-0400 Heart rate 68 /min [facility] [place] 02-17-2022 21:30-0400 Respiratory rate 18 /min [facility] [place] 02-17-2022 21:30-0400 SaO2% (BldA) [Mass fraction] 95 % [facility] [place] 02-17-2022 21:30-0400 Systolic blood pressure 148 mm[Hg] [facility] [place] 02-17-2022 19:30-0400 Diastolic blood pressure 78 mm[Hg] [facility] [place] 02-17-2022 19:30-0400 Heart rate 69 /min [facility] [place] 02-17-2022 19:30-0400 Hourly Rounding [facility] [place] 02-17-2022 19:30-0400 Nursing Progress Note Reason Other: Pt aware of POC. Resting on cart. [facility] [place] 02-17-2022 19:30-0400 Respiratory rate 18 /min [facility] [place] 02-17-2022 19:30-0400 SaO2% (BldA) [Mass fraction] 94 % [facility] [place] 02-17-2022 19:30-0400 Systolic blood pressure 157 mm[Hg] [facility] [place] 02-17-2022 16:02-0400 Body temperature 98.6 [degF] [facility] [place] 02-17-2022 16:02-0400 Diastolic blood pressure 83 mm[Hg] [facility] [place] 02-17-2022 16:02-0400 Heart rate 77 /min [facility] [place] 02-17-2022 16:02-0400 Respiratory rate 18 /min [facility] [place] 02-17-2022 16:02-0400 SaO2% (BldA) [Mass fraction] 94 % [facility] [place] 02-17-2022 16:02-0400 Systolic blood pressure 158 mm[Hg] [facility] [place] 02-15-2022 15:01-0400 Body temperature 98.24 [degF] Johny Demetris [facility] 02-15-2022 15:01-0400 Diastolic blood pressure 83 mm[Hg] Johny Demetris [facility] 02-15-2022 15:01-0400 Heart rate 78 /min Johny Demetris [facility] 02-15-2022 15:01-0400 Respiratory rate 18 /min Jonhy Demetris [facility] 02-15-2022 15:01-0400 SaO2% (BldA) [Mass fraction] 94 % Johny Demetris [facility] 02-15-2022 15:01-0400 Systolic blood pressure 121 mm[Hg] Johny Demetris [facility] 02-13-2022 12:20-0400 Diastolic blood pressure 61 mm[Hg] Johny Demetris [facility] 02-13-2022 12:20-0400 Heart rate 62 /min Johny Demetris [facility] 02-13-2022 12:20-0400 Mean blood pressure 82 mm[Hg] Johny Demetris [facility] 02-13-2022 12:20-0400 Respiratory rate 21 /min Johny Demetris [facility] 02-13-2022 12:20-0400 SaO2% (BldA) [Mass fraction] 96 % Johny Willson [facility] 02-13-2022 12:20-0400 Systolic blood pressure 123 mm[Hg] Johny Demetris [facility] 02-13-2022 11:46-0400 Body temperature 98.6 [degF] Johny Willson [facility] 02-13-2022 11:46-0400 Diastolic blood pressure 56 mm[Hg] Johny Willson [facility] 02-13-2022 11:46-0400 Heart rate 56 /min Johny Willson [facility] 02-13-2022 11:46-0400 Respiratory rate 20 /min Johny Willson [facility] 02-13-2022 11:46-0400 SaO2% (BldA) [Mass fraction] 96 % Johny Willson [facility] 02-13-2022 11:46-0400 Systolic blood pressure 127 mm[Hg] Johny Willson [facility] 02-07-2022 13:57-0400 Diastolic blood pressure 75 mm[Hg] Quynh Hernandez MD Work Phone: [facility] 02-07-2022 13:57-0400 Heart rate 76 /min Quynh Hernandez MD Work Phone: [facility] 02-07-2022 13:57-0400 Systolic blood pressure 118 mm[Hg] Quynh Hernandez MD Work Phone: [facility] 02-07-2022 13:06-0400 Body weight 51.71 kg Quynh Hernandez MD Work Phone: [facility] 02-05-2022 11:44-0400 Hourly Rounding Jony MARISELYAEL [facility] 02-05-2022 11:44-0400 Promise to Return [facility] 02-05-2022 10:18-0400 Hourly Rounding [facility] 02-05-2022 10:18-0400 Promise to Return [facility] 02-05-2022 09:15-0400 Hourly Rounding [facility] 02-05-2022 09:15-0400 Promise to Return [facility] 02-05-2022 07:18-0400 Blood Pressure Location [facility] 02-05-2022 07:18-0400 BP/Pulse Patient Position [facility] 02-05-2022 07:18-0400 Diastolic blood pressure 66 mm[Hg] [facility] 02-05-2022 07:18-0400 Heart rate 58 /min [facility] 02-05-2022 07:18-0400 Mean blood pressure 83 mm[Hg] [facility] 02-05-2022 07:18-0400 SaO2% (BldA) [Mass fraction] 94 % [facility] 02-05-2022 07:18-0400 Systolic blood pressure 117 mm[Hg] [facility] 02-05-2022 04:00-0400 Body temperature 97.34 [degF] [facility] 02-05-2022 04:00-0400 Heart rate 70 /min [facility] 02-05-2022 04:00-0400 Mean blood pressure 82 mm[Hg] [facility] 02-05-2022 04:00-0400 Respiratory rate 16 /min [facility] 02-05-2022 04:00-0400 SaO2% (BldA) [Mass fraction] 92 % [facility] 02-05-2022 04:00-0400 Systolic blood pressure 115 mm[Hg] [facility]-04[facility] 20:00-0400 Diastolic blood pressure 47 mm[Hg] [facility] 02-04-2022 20:00-0400 Systolic blood pressure 118 mm[Hg] [facility] 02-04-[facility]22 19:00-0400 Blood Pressure Location [facility] 02-04-2022 19:00-0400 Body temperature 97.52 [degF] [facility] 02-04-[facility] 19:00-0400 BP/Pulse Patient Position [facility] 02-04-2022 19:00-0400 Heart rate 62 /min [facility] 02-04-2022 19:00-0400 SaO2% (BldA) [Mass fraction] 91 % [facility] 02-04-2022 16:30-0400 Body temperature 97.7 [degF] [facility] 02-04-2022 16:30-0400 Mean blood pressure 95 mm[Hg] [facility] 16:30-0400 Respiratory rate 16 /min [facility] 02-04-2022 11:51-0400 Body temperature 96.44 [degF] [facility] 02-04-2022 11:51-0400 Mean blood pressure 91 mm[Hg] [facility]-04-[facility] 07:31-0400 Mean blood pressure 80 mm[Hg] [facility] 02-04-2022 05:45-0400 Mean blood pressure 85 mm[Hg] [facility] 02-04-2022 05:45-0400 Respiratory rate 14 /min [facility] 02-04-2022 00:40-0400 Respiratory rate 17 /min [facility] 02-03-2022 19:00-0400 [facility] 16 /[facility] 02-03-2022 16:55-0400 Heart rate 55 /min [facility] 02-03-2022 10:00-0400 Heart rate 54 /min [facility] 02-01-2022 07:55-0400 Diastolic blood pressure 74 mm[Hg] Kaylinn Dokken [facility] 02-01-2022 07:55-0400 Heart rate 58 /min Kaylinn Dokken [facility] 02-01-2022 07:55-0400 Mean blood pressure 96 mm[Hg] Kaylinn Dokken [facility] 02-01-2022 07:55-0400 Respiratory rate 20 /min Kaylinn Dokken [facility] 02-01-2022 07:55-0400 SaO2% (BldA) [Mass fraction] 96 % Kaylinn Dokken [facility] 02-01-2022 07:55-0400 Systolic blood pressure 139 mm[Hg] Kaylinn Dokken [facility] 02-01-2022 06:35-0400 Body temperature 97.7 [degF] Kaylinn Dokken [facility] 02-01-2022 06:35-0400 Diastolic blood pressure 74 mm[Hg] Kaylinn Dokken [facility] 02-01-2022 06:35-0400 Heart rate 64 /min Kaylinn Dokken [facility] 02-01-2022 06:35-0400 Respiratory rate 20 /min Kaylinn Dokken [facility] 02-01-2022 06:35-0400 SaO2% (BldA) [Mass fraction] 98 % Kaylinn Dokken [facility] 02-01-2022 06:35-0400 Systolic blood pressure 134 mm[Hg] Kaylinn Dokken [facility] 02-01-2022 06:15-0400 Body temperature 96.98 [degF] Kaylinn Dokken [facility] 02-01-2022 06:15-0400 Diastolic blood pressure 65 mm[Hg] Kaylinn Dokken [facility] 02-01-2022 06:15-0400 Heart rate 69 /min Kaylinn Dokken [facility] 02-01-2022 06:15-0400 Respiratory rate 18 /min Kaylinn Dokken [facility] 02-01-2022 06:15-0400 SaO2% (BldA) [Mass fraction] 96 % Kaylinn Dokken [facility] 02-01-2022 06:15-0400 Systolic blood pressure 160 mm[Hg] Kaylinn Dokken [facility] 01-31-2022 04:19-0400 Diastolic blood pressure 62 mm[Hg] Kaylinn Dokken [facility] 01-31-2022 04:19-0400 Heart rate 60 /min Kaylinn Dokken [facility] 01-31-2022 04:19-0400 Hourly Rounding Kaylinn Dokken [facility] 01-31-2022 04:19-0400 Respiratory rate 18 /min Kaylinn Dokken [facility] 01-31-2022 04:19-0400 SaO2% (BldA) [Mass fraction] 92 % Kaylinn Dokken [facility] 01-31-2022 04:19-0400 Systolic blood pressure 136 mm[Hg] Kaylinn Dokken [facility] 01-31-2022 03:36-0400 Body temperature 98.06 [degF] Kaylinn Dokken [facility] 01-31-2022 03:36-0400 Diastolic blood pressure 66 mm[Hg] Kaylinn Dokken [facility] 01-31-2022 03:36-0400 Heart rate 67 /min Kaylinn Dokken [facility] 01-31-2022 03:36-0400 Hourly Rounding Kaylinn Dokken [facility] 01-31-2022 03:36-0400 Respiratory rate 18 /min Kaylinn Dokken [facility] 01-31-2022 03:36-0400 SaO2% (BldA) [Mass fraction] 94 % Kaylinn Dokken [facility] 01-31-2022 03:36-0400 Systolic blood pressure 144 mm[Hg] Kaylinn Dokken [facility] 01-30-2022 20:30-0400 Diastolic blood pressure 72 mm[Hg] Kaylinn Dokken [facility] 01-30-2022 20:30-0400 Heart rate 69 /min Kaylinn Dokken [facility] 01-30-2022 20:30-0400 Respiratory rate 21 /min Kaylinn Dokken [facility] 01-30-2022 20:30-0400 SaO2% (BldA) [Mass fraction] 94 % Kaylinn Dokken [facility] 01-30-2022 20:30-0400 Systolic blood pressure 136 mm[Hg] Kaylinn Dokken [facility] 01-30-2022 19:02-0400 Body temperature 97.52 [degF] Kaylinn Dokken [facility] 01-30-2022 19:02-0400 Diastolic blood pressure 66 mm[Hg] Kaylinn Dokken [facility] 01-30-2022 19:02-0400 Heart rate 67 /min Speedyylinn Dokken [facility] 01-30-2022 19:02-0400 SaO2% (BldA) [Mass fraction] 95 % Kaylinn Dokken [facility] 01-30-2022 19:02-0400 Systolic blood pressure 138 mm[Hg] Kaylinn Dokken [facility] 01-30-2022 19:00-0400 Hourly Rounding Kaylinn Dokken [facility] 01-30-2022 19:00-0400 Promise to Return Kaylinn Dokken [facility] 01-15-2022 15:40-[address] [facility] 01-15-2022 15:40-0400 Body temperature 97.52 [degF] JHONATAN SIDELL [facility] 01-15-2022 15:40-0400 Diastolic blood pressure 70 mm[Hg] JHONATAN SIDELL [facility] 01-15-2022 15:40-0400 Heart rate 70 /min JHONATAN SIDELL [facility] 01-15-2022 15:40-0400 SaO2% (BldA) [Mass fraction] 97 % JHONATAN SIDELL [facility] 01-15-2022 15:40-0400 Systolic blood pressure 116 mm[Hg] JHONATAN SIDELL [facility] 01-14-2022 16:41-0400 Body temperature 98.42 [degF] Chandan Onofre [facility] 01-14-2022 16:41-0400 Diastolic blood pressure 80 mm[Hg] Chandan Onofre [facility] 01-14-2022 16:41-0400 Heart rate 71 /min Chandan Onofre [facility] 01-14-2022 16:41-0400 Respiratory rate 18 /min Chandan Onofre [facility] 01-14-2022 16:41-0400 SaO2% (BldA) [Mass fraction] 96 % Chandan Onofre [facility] 01-14-2022 16:41-0400 Systolic blood pressure 124 mm[Hg] Chandan Onofre [facility] 2022 16:04-0400 Body weight 60.33 kg Frantz Curran ANCIENT [employer] CURATOR.[employer]FL[employer] WASH OPERATOR Work Phone: [facility] 2022 16:04-0400 Diastolic blood pressure 57 mm[Hg] Frantz Curran ANCIENT ART CURATOR.DEFLASH AND WASH OPERATOR Work Phone: [facility] 2022 16:04-0400 Heart rate 55 /min Frantz Curran ANCIENT ART CURATOR.DEFLASH AND WASH OPERATOR Work Phone: [facility] 2022 16:04-0400 Systolic blood pressure 107 mm[Hg] Frantz Curran ANCIENT ART CURATOR.DEFLASH AND WASH OPERATOR Work Phone: [facility] 12-20-2021 13:54-0400 Body temperature 97.88 [degF] [facility] 12-20-2021 13:54-0400 Diastolic blood pressure 65 mm[Hg] [facility] 12-20-2021 13:54-0400 Heart rate 80 /min [facility] 12-20-2021 13:54-0400 Respiratory rate 18 /min [facility] 12-20-2021 13:54-0400 SaO2% (BldA) [Mass fraction] 94 % [facility] 12-20-2021 13:54-0400 Systolic blood pressure 116 mm[Hg] [facility] 12-17-2021 13:45-0400 Hourly Rounding Zeyad Zachary [facility] 12-17-2021 11:00-0400 Body temperature 98.06 [degF] Zeyad Zachary [facility] 12-17-2021 11:00-0400 Diastolic blood pressure 68 mm[Hg] Zeyad [facility] 12-17-2021 11:00-0400 Heart rate 59 /min Zeyad [facility] 12-17-2021 11:00-0400 SaO2% (BldA) [Mass fraction] 94 % Zeyad [facility] 12-17-2021 11:00-0400 Systolic blood pressure 131 mm[Hg] Zeyad [facility] 12-17-2021 08:38-0400 Diastolic blood pressure 69 mm[Hg] Zeyad [facility] 12-17-2021 08:38-0400 Systolic blood pressure 127 mm[Hg] Zeyad [facility] 12-17-2021 08:37-0400 Hourly Rounding Zeyad [facility] 12-17-2021 08:00-0400 Promise to Return Zeyad [facility] 12-17-2021 07:59-0400 Body temperature 97.88 [degF] Zeyad [facility] 12-17-2021 07:59-0400 Diastolic blood pressure 69 mm[Hg] Zeyad [facility] 12-17-2021 07:59-0400 Heart rate 65 /min Zeyad [facility] 12-17-2021 07:59-0400 Mean blood pressure 89 mm[Hg] Zeyad [facility] 12-17-2021 07:59-0400 SaO2% (BldA) [Mass fraction] 92 % Zeyad [facility] 12-17-2021 07:59-0400 Systolic blood pressure 127 mm[Hg] Zeyad [facility] 12-17-2021 07:00-0400 Hourly Rounding Zeyad [facility] 12-17-2021 07:00-0400 Promise to Return Zeyad [facility] 12-17-2021 06:42-0400 Promise to Return Zeyad [facility] 12-17-2021 00:00-0400 Body temperature 98.06 [degF] Zeyad [facility] 12-17-2021 00:00-0400 Heart rate 60 /min Zeyad [facility] 12-17-2021 00:00-0400 SaO2% (BldA) [Mass fraction] 92 % Zeyad [facility] 12-16-2021 15:20-0400 Mean blood pressure 92 mm[Hg] Zeyad [facility] 12-16-2021 10:38-0400 Blood Pressure Location Zeyad [facility] 12-16-2021 10:38-0400 Heart rate 74 /min Zeyad [facility] 12-16-2021 09:30-0400 Mean blood pressure 80 mm[Hg] Zeyad [facility] 12-16-2021 09:30-0400 Respiratory rate 18 /min Zeyad [facility] 12-16-2021 07:38-0400 Heart rate 61 /min Zeyad [facility] 12-16-2021 07:38-0400 Respiratory rate 16 /min Zeyad [facility] 12-15-2021 18:58-0400 Diastolic blood pressure 69 mm[Hg] Carlos Jaxon [facility] 12-15-2021 18:58-0400 Heart rate 66 /min Carlos Jaxon [facility] 12-15-2021 18:58-0400 Mean blood pressure 94 mm[Hg] Carlos Jaxon [facility] 12-15-2021 18:58-0400 Respiratory rate 20 /min Carlos Jaxon [facility] 12-15-2021 18:58-0400 SaO2% (BldA) [Mass fraction] 93 % Carlos Jaxon [facility] 12-15-2021 18:58-0400 Systolic blood pressure 144 mm[Hg] Carlos Jaxon [facility] 12-15-2021 18:00-0400 Diastolic blood pressure 82 mm[Hg] Carlos Jaxon [facility] 12-15-2021 18:00-0400 Heart rate 68 /min Carlos Jaxon [facility] 12-15-2021 18:00-0400 Hourly Rounding Carlos Jaxon [facility] 12-15-2021 18:00-0400 Mean blood pressure 102 mm[Hg] Carlos Jaxon [facility] 12-15-2021 18:00-0400 Promise to Return Carlos Jaxon [facility] 12-15-2021 18:00-0400 Respiratory rate 18 /min Carlos Jaxon [facility] 12-15-2021 18:00-0400 Systolic blood pressure 142 mm[Hg] Carlos Jaxon [facility] 12-15-2021 17:00-0400 Diastolic blood pressure 72 mm[Hg] Carlos Jaxon [facility] 12-15-2021 17:00-0400 Heart rate 70 /min Carlos Jaxon [facility] 12-15-2021 17:00-0400 Mean blood pressure 97 mm[Hg] Carlos Jaxon [facility] 12-15-2021 17:00-0400 SaO2% (BldA) [Mass fraction] 92 % Carlos Jaxon [facility] 12-15-2021 17:00-0400 Systolic blood pressure 146 mm[Hg] Carlos Jaxon [facility] 12-15-2021 16:00-0400 Hourly Rounding Carlos Jaxon [facility] 12-15-2021 16:00-0400 Promise to Return Carlos Jaxon [facility] 12-15-2021 14:25-0400 Body temperature 98.42 [degF] Carlos Jaxon [facility] 12-15-2021 14:25-0400 Heart rate 74 /min Carlos Jaxon [facility] 12-15-2021 14:25-0400 Hourly Rounding Carlos Jaxon [facility] 12-15-2021 14:25-0400 Promise to Return Carlos Jaxon [facility] 12-15-2021 14:25-0400 Respiratory rate 16 /min Carlos Jaxon [facility] 12-14-2021 08:50-0400 Body temperature 97.7 [degF] Johny Willson [facility] 12-14-2021 08:50-0400 Diastolic blood pressure 71 mm[Hg] Johny Willson [facility] 12-14-2021 08:50-0400 Heart rate 96 /min Johny Demetris [facility] 12-14-2021 08:50-0400 Respiratory rate 20 /min Johny Demetris [facility] 12-14-2021 08:50-0400 SaO2% (BldA) [Mass fraction] 94 % Johny Demetris [facility] 12-14-2021 08:50-0400 Systolic blood pressure 149 mm[Hg] Johny Demetris [facility] 12-09-2021 18:00-0400 Diastolic blood pressure 59 mm[Hg] Johny Spenser [facility] 12-09-2021 18:00-0400 Heart rate 72 /min Johny Spenser [facility] 12-09-2021 18:00-0400 Respiratory rate 18 /min Johny Spenser [facility] 12-09-2021 18:00-0400 SaO2% (BldA) [Mass fraction] 99 % Johny Spenser [facility] 12-09-2021 18:00-0400 Systolic blood pressure 117 mm[Hg] Johny Spenser [facility] 12-09-2021 16:47-0400 Body temperature 97.88 [degF] Johny Spenser [facility] 12-09-2021 16:47-0400 Diastolic blood pressure 72 mm[Hg] Johny Spenser [facility] 12-09-2021 16:47-0400 Heart rate 78 /min Johny Spenser [facility] 12-09-2021 16:47-0400 Respiratory rate 19 /min Johny Dueñas [facility] 12-09-2021 16:47-0400 SaO2% (BldA) [Mass fraction] 97 % Johny Dueñas [facility] 12-09-2021 16:47-0400 Systolic blood pressure 127 mm[Hg] Johny Dueñas [facility] 12-07-2021 11:43-0400 Body weight 60.33 kg Frantz [place] [employer] CURATOR.DEFLASH AND WASH OPERATOR Work Phone: [facility] 12-07-2021 11:43-0400 Diastolic blood pressure 51 mm[Hg] Frantz [place] ANCIENT ART CURATOR.DEFLASH AND WASH OPERATOR Work Phone: [facility] 12-07-2021 11:43-0400 Heart rate 72 /min Frantz Magdy ANCIENT ART CURATOR.DEFLASH AND WASH OPERATOR Work Phone: [facility] 12-07-2021 11:43-0400 Systolic blood pressure 126 mm[Hg] Frantz [place] ANCIENT ART CURATOR.DEFLASH AND WASH OPERATOR Work Phone: [facility] 12-04-2021 14:09-0400 Body weight 60.33 kg Frantz Magdy ANCIENT ART CURATOR.DEFLASH AND WASH OPERATOR Work Phone: [facility] 12-04-2021 14:09-0400 Diastolic blood pressure 54 mm[Hg] Frantz Magdy ANCIENT ART CURATOR.DEFLASH AND WASH OPERATOR Work Phone: [facility] 12-04-2021 14:09-0400 Heart rate 71 /min Frantz Magdy ANCIENT ART CURATOR.DEFLASH AND WASH OPERATOR Work Phone: [facility] 12-04-2021 14:09-0400 Systolic blood pressure 133 mm[Hg] Frantz [place] ANCIENT ART CURATOR.DEFLASH AND WASH OPERATOR Work Phone: [facility] 11-30-2021 14:26-0400 Body temperature 97.88 [degF] Tatum Liang [facility] 11-30-2021 14:26-0400 Diastolic blood pressure 60 mm[Hg] Tatum Orzech [facility] 11-30-2021 14:26-0400 Heart rate 72 /min Tatum Orzech [facility] 11-30-2021 14:26-0400 SaO2% (BldA) [Mass fraction] 95 % Tatum Orzech [facility] 11-30-2021 14:26-0400 Systolic blood pressure 122 mm[Hg] Tatum Orzech [facility] 11-23-2021 13:06-0400 Blood Pressure Location Rosalielorraine Lottk [facility] 11-23-2021 13:06-0400 Body temperature 97.52 [degF] Rosalie Klonk [facility] 11-23-2021 13:06-0400 Diastolic blood pressure 66 mm[Hg] Rosalie Klonk [facility] 11-23-2021 13:06-0400 Heart rate 76 /min Rosalie Klonk [facility] 11-23-2021 13:06-0400 SaO2% (BldA) [Mass fraction] 91 % Rosalie Klonk [facility] 11-23-2021 13:06-0400 Systolic blood pressure 120 mm[Hg] Rosalie Klonk [facility] 11-21-2021 19:28-0400 Body temperature 98.24 [degF] Carlos Coates [facility] 11-21-2021 19:28-0400 Diastolic blood pressure 73 mm[Hg] Carlos Coates [facility] 11-21-2021 19:28-0400 Heart rate 81 /min Carlos Coates [facility] 11-21-2021 19:28-0400 Respiratory rate 16 /min Carlos Coates [facility] 11-21-2021 19:28-0400 SaO2% (BldA) [Mass fraction] 93 % Carlos Coates [facility] 11-21-2021 19:28-0400 Systolic blood pressure 141 mm[Hg] Carlos Coates [facility] 11-17-2021 18:30-0400 Diastolic blood pressure 67 mm[Hg] Chandan Adhikari [facility] 11-17-2021 18:30-0400 Heart rate 53 /min Chandan Adhikari [facility] 11-17-2021 18:30-0400 Mean blood pressure 88 mm[Hg] Chandan Munoze [facility] 11-17-2021 18:30-0400 Respiratory rate 16 /min Chandan Munoze [facility] 11-17-2021 18:30-0400 SaO2% (BldA) [Mass fraction] 94 % Chandan Onofre [facility] 11-17-2021 18:30-0400 Systolic blood pressure 129 mm[Hg] Chandan Onofre [facility] 11-17-2021 17:20-0400 Body temperature 98.42 [degF] Chandan Munoze [facility] 11-17-2021 17:20-0400 Diastolic blood pressure 76 mm[Hg] Chandan Onofre [facility] 11-17-2021 17:20-0400 Heart rate 66 /min Chandan Onofre [facility] 11-17-2021 17:20-0400 Respiratory rate 18 /min Chandan Munoze [facility] 11-17-2021 17:20-0400 SaO2% (BldA) [Mass fraction] 94 % Chandan Onofre [facility] 11-17-2021 17:20-0400 Systolic blood pressure 128 mm[Hg] Chandan Onofre [facility] 11-16-2021 15:22-0400 Body temperature 97.7 [degF] Chandan Munoze [facility] 11-16-2021 15:22-0400 Diastolic blood pressure 70 mm[Hg] Chandan Onofre [facility] 11-16-2021 15:22-0400 Heart rate 71 /min Chandan Onofre [facility] 11-16-2021 15:22-0400 Respiratory rate 14 /min Chandan Onofre [facility] 11-16-2021 15:22-0400 SaO2% (BldA) [Mass fraction] 95 % Chandan Onofre [facility] 11-16-2021 15:22-0400 Systolic blood pressure 126 mm[Hg] Chandan Onofre [facility] 11-08-2021 19:13-0400 Diastolic blood pressure 76 mm[Hg] [facility] 11-08-2021 19:13-0400 Heart rate 68 /min [facility] 11-08-2021 19:13-0400 Mean blood pressure 93 mm[Hg] [facility] 11-08-2021 19:13-0400 Respiratory rate 12 /min [facility] 11-08-2021 19:13-0400 SaO2% (BldA) [Mass fraction] 97 % [facility] 11-08-2021 19:13-0400 Systolic blood pressure 128 mm[Hg] [facility] 11-08-2021 19:00-0400 Body temperature 98.6 [degF] [facility] 11-08-2021 18:45-0400 Diastolic blood pressure 84 mm[Hg] [facility] 11-08-2021 18:45-0400 Heart rate 68 /min [facility] 11-08-2021 18:45-0400 Mean blood pressure 97 mm[Hg] [facility] 11-08-2021 18:45-0400 Respiratory rate 14 /min [facility] 11-08-2021 18:45-0400 SaO2% (BldA) [Mass fraction] 98 % [facility] 11-08-2021 18:45-0400 Systolic blood pressure 123 mm[Hg] [facility] 11-08-2021 17:20-0400 gluc 106 mg/dL [facility] 11-08-2021 17:20-0400 gluc [facility] 11-08-2021 17:12-0400 Body temperature 98.24 [degF] [facility] 11-08-2021 17:12-0400 Diastolic blood pressure 81 mm[Hg] [facility] 11-08-2021 17:12-0400 Heart rate 67 /min [facility] 11-08-2021 17:12-0400 Respiratory rate 16 /min [facility] 11-08-2021 17:12-0400 SaO2% (BldA) [Mass fraction] 93 % [facility] 11-08-2021 17:12-0400 Systolic blood pressure 116 mm[Hg] [facility] 11-07-2021 08:52-0400 Blood Pressure Location Rosalie Klonk [facility] 11-07-2021 08:52-0400 Body temperature 96.8 [degF] Rosalie Klonk [facility] 11-07-2021 08:52-0400 Diastolic blood pressure 86 mm[Hg] Rosalie Klonk [facility] 11-07-2021 08:52-0400 Heart rate 74 /min Rosalie Klonk [facility] 11-07-2021 08:52-0400 SaO2% (BldA) [Mass fraction] 96 % Rosalie Klonk [facility] 11-07-2021 08:52-0400 Systolic blood pressure 156 mm[Hg] Rosalie Klonk [facility] 11-06-2021 18:07-0400 Body temperature 98.06 [degF] Johny Willson [facility] 11-06-2021 18:07-0400 Diastolic blood pressure 62 mm[Hg] Johny Willson [facility] 11-06-2021 18:07-0400 Heart rate 82 /min Johny Demetris [facility] 11-06-2021 18:07-0400 Respiratory rate 20 /min Johny Willson [facility] 11-06-2021 18:07-0400 SaO2% (BldA) [Mass fraction] 100 % Johny Willson [facility] 11-06-2021 18:07-0400 Systolic blood pressure 153 mm[Hg] Johny Willson [facility] 10-30-2021 11:32-0400 Diastolic blood pressure 74 mm[Hg] Alison Ferreira MD Work Phone: [facility] 10-30-2021 11:32-0400 Heart rate 66 /min Alison Ferreira MD Work Phone: [facility] 10-30-2021 11:32-0400 Respiratory rate 16 /min Alison Ferreira MD Work Phone: [facility] 10-30-2021 11:32-0400 SaO2% (BldA) [Mass fraction] 93 % Alison Ferreira MD Work Phone: [facility] 10-30-2021 11:32-0400 Systolic blood pressure 157 mm[Hg] Alison Ferreira MD Work Phone: [facility] 10-27-2021 11:00-0400 Diastolic blood pressure 71 mm[Hg] Johny Demetris [facility] 10-27-2021 11:00-0400 Heart rate 64 /min Johny Willson [facility] 10-27-2021 11:00-0400 Mean blood pressure 96 mm[Hg] Johny Willson [facility] 10-27-2021 11:00-0400 Respiratory rate 16 /min Johny Willson [facility] 10-27-2021 11:00-0400 SaO2% (BldA) [Mass fraction] 94 % Johny Willson [facility] 10-27-2021 11:00-0400 Systolic blood pressure 146 mm[Hg] Johny Demetris [facility] 10-27-2021 09:49-0400 Body temperature 98.06 [degF] Johny Willson [facility] 10-27-2021 09:49-0400 Diastolic blood pressure 75 mm[Hg] Johny Demetris [facility] 10-27-2021 09:49-0400 Heart rate 73 /min Johnybhavani Willson [facility] 10-27-2021 09:49-0400 Respiratory rate 18 /min Johny Willson [facility] 10-27-2021 09:49-0400 SaO2% (BldA) [Mass fraction] 93 % Johny Willson [facility] 10-27-2021 09:49-0400 Systolic blood pressure 154 mm[Hg] Johny Willson [facility] 10-23-2021 21:00-0400 Diastolic blood pressure 60 mm[Hg] Chandan Adhikari [facility] 10-23-2021 21:00-0400 Heart rate 64 /min Chandan Adhikari [facility] 10-23-2021 21:00-0400 Mean blood pressure 79 mm[Hg] Chandan Adhikari [facility] 10-23-2021 21:00-0400 Systolic blood pressure 116 mm[Hg] Chandan Adhikari [facility] 10-23-2021 20:00-0400 Diastolic blood pressure 76 mm[Hg] Chandan Munoze [facility] 10-23-2021 20:00-0400 Heart rate 65 /min Chandan Adhikari [facility] 10-23-2021 20:00-0400 Mean blood pressure 92 mm[Hg] Chandan Munoze [facility] 10-23-2021 20:00-0400 SaO2% (BldA) [Mass fraction] 93 % Chandan Munoze [facility] 10-23-2021 20:00-0400 Systolic blood pressure 125 mm[Hg] Chandan Adhikari [facility] 10-23-2021 19:13-0400 gluc 111 mg/dL Chandan Munoze [facility] 10-23-2021 19:13-0400 gluc Chandan Adhikari [facility] 10-23-2021 19:05-0400 Body temperature 98.6 [degF] Chandan Adhikari [facility] 10-23-2021 19:05-0400 Diastolic blood pressure 70 mm[Hg] Chandan Munoze [facility] 10-23-2021 19:05-0400 Heart rate 69 /min Chandan Munoze [facility] 10-23-2021 19:05-0400 Respiratory rate 18 /min Chandan Munoze [facility] 10-23-2021 19:05-0400 SaO2% (BldA) [Mass fraction] 91 % Chandan Munoze [facility] 10-23-2021 19:05-0400 Systolic blood pressure 138 mm[Hg] Chandan Adhikari [facility] 10-23-2021 02:03-0400 Diastolic blood pressure 64 mm[Hg] Kaylinn Dokken [facility] 10-23-2021 02:03-0400 Heart rate 66 /min Kaylinn Dokken [facility] 10-23-2021 02:03-0400 Mean blood pressure 82 mm[Hg] Kaylinn Dokken [facility] 10-23-2021 02:03-0400 Respiratory rate 16 /min Kaylinn Dokken [facility] 10-23-2021 02:03-0400 SaO2% (BldA) [Mass fraction] 92 % Kaylinn Dokken [facility] 10-23-2021 02:03-0400 Systolic blood pressure 118 mm[Hg] Kaylinn Dokken [facility] 10-23-2021 01:00-0400 Diastolic blood pressure 63 mm[Hg] Kaylinn Dokken [facility] 10-23-2021 01:00-0400 Heart rate 60 /min Kaylinn Dokken [facility] 10-23-2021 01:00-0400 Mean blood pressure 80 mm[Hg] Kaylinn Dokken [facility] 10-23-2021 01:00-0400 Respiratory rate 16 /min Kaylinn Dokken [facility] 10-23-2021 01:00-0400 SaO2% (BldA) [Mass fraction] 95 % Kaylinn Dokken [facility] 10-23-2021 01:00-0400 Systolic blood pressure 114 mm[Hg] Speedyylinn Dokken [facility] 10-23-2021 00:00-0400 Heart rate 67 /min Julio Cinn Dokken [facility] 10-23-2021 00:00-0400 SaO2% (BldA) [Mass fraction] 92 % Julio Cinn Dokken [facility] 10-22-2021 23:49-0400 Body temperature 98.78 [degF] Julio Cinn Dokken [facility] 10-22-2021 23:49-0400 Diastolic blood pressure 67 mm[Hg] Julio Cinn Dokken [facility] 10-22-2021 23:49-0400 Heart rate 72 /min Chelon Dokken [facility] 10-22-2021 23:49-0400 Systolic blood pressure 125 mm[Hg] Julio Cinn Dokken [facility] 10-20-2021 08:27-0400 Hourly Rounding Chandan Adhikari [facility] 10-20-2021 08:20-0400 Diastolic blood pressure 76 mm[Hg] Chandan Onofre [facility] 10-20-2021 08:20-0400 Heart rate 90 /min Chandan Munoze [facility] 10-20-2021 08:20-0400 Respiratory rate 16 /min Chandan Adhikari [facility] 10-20-2021 08:20-0400 SaO2% (BldA) [Mass fraction] 97 % Chandan Adhikari [facility] 10-20-2021 08:20-0400 Systolic blood pressure 134 mm[Hg] Chandan Adhikari [facility] 10-20-2021 07:24-0400 Diastolic blood pressure 74 mm[Hg] Chandan Adhikari [facility] 10-20-2021 07:24-0400 Heart rate 88 /min Chandan Adhikari [facility] 10-20-2021 07:24-0400 Respiratory rate 16 /min Chandan Adhikari [facility] 10-20-2021 07:24-0400 SaO2% (BldA) [Mass fraction] 98 % Chandan Adhikari [facility] 10-20-2021 07:24-0400 Systolic blood pressure 136 mm[Hg] Chandan Adhikari [facility] 10-14-2021 11:33-0400 Diastolic blood pressure 47 mm[Hg] Johny Dueñas [facility] 10-14-2021 11:33-0400 Mean blood pressure 67 mm[Hg] Johny Jaraell [facility] 10-14-2021 11:33-0400 Systolic blood pressure 106 mm[Hg] Johny Spenser [facility] 10-14-2021 11:00-0400 Heart rate 54 /min Johny Spenser [facility] 10-14-2021 11:00-0400 SaO2% (BldA) [Mass fraction] 94 % Johny Spenser [facility] 10-14-2021 10:26-0400 Body temperature 98.42 [degF] Johny Spenser [facility] 10-14-2021 10:26-0400 Diastolic blood pressure 59 mm[Hg] Johny Dueñas [facility] 10-14-2021 10:26-0400 Heart rate 59 /min Johny Dueñas [facility] 10-14-2021 10:26-0400 Respiratory rate 16 /min Johny Dueñas [facility] 10-14-2021 10:26-0400 SaO2% (BldA) [Mass fraction] 93 % Johny Dueñas [facility] 10-14-2021 10:26-0400 Systolic blood pressure 123 mm[Hg] Johny Jaraell [facility] 10-12-2021 21:35-0400 Body temperature 98.06 [degF] Carlos Jaxon [facility] 10-12-2021 21:35-0400 Diastolic blood pressure 60 mm[Hg] Carlos Jaxon [facility] 10-12-2021 21:35-0400 Heart rate 70 /min Carlos Jaxon [facility] 10-12-2021 21:35-0400 Mean blood pressure 83 mm[Hg] Carlos Jaxon [facility] 10-12-2021 21:35-0400 Respiratory rate 18 /min Carlos Jaxon [facility] 10-12-2021 21:35-0400 SaO2% (BldA) [Mass fraction] 92 % Carlos Jaxon [facility] 10-12-2021 21:35-0400 Systolic blood pressure 130 mm[Hg] Carlos Jaxon [facility] 10-12-2021 20:48-0400 Body temperature 98.06 [degF] Carlos Coates [facility] 10-12-2021 20:48-0400 Diastolic blood pressure 80 mm[Hg] Carlos Coates [facility] 10-12-2021 20:48-0400 Heart rate 75 /min Carlos Coates [facility] 10-12-2021 20:48-0400 Mean blood pressure 107 mm[Hg] Carlos Coates [facility] 10-12-2021 20:48-0400 Respiratory rate 20 /min Carlos Coates [facility] 10-12-2021 20:48-0400 SaO2% (BldA) [Mass fraction] 93 % Carlos Coates [facility] 10-12-2021 20:48-0400 Systolic blood pressure 160 mm[Hg] Carlos Coates [facility] 10-04-2021 19:12-0400 Body height 154.94 cm DO Tomas Farrell Work Phone: [facility] 10-04-2021 19:12-0400 Body mass index (BMI) [Ratio] 26.7 kg/m2 DO Tomas Farrell Work Phone: [facility] 10-04-2021 19:12-0400 Body temperature 97.8 [degF] DO Tomas Farrell Work Phone: [facility] 10-04-2021 19:12-0400 Body weight 64.2 kg DO Tomas Farrell Work Phone: [facility] 10-04-2021 19:12-0400 Diastolic blood pressure 63 mm[Hg] DO Tomas Farrell Work Phone: [facility] 10-04-2021 19:12-0400 Heart rate 68 /min DO Tomas Farrell Work Phone: [facility] 10-04-2021 19:12-0400 Respiratory rate 18 /min DO Tomas Farrell Work Phone: [facility] 10-04-2021 19:12-0400 SaO2% (BldA) [Mass fraction] 96 % DO Tomas Farrell Work Phone: [facility] 10-04-2021 19:12-0400 Systolic blood pressure 150 mm[Hg] DO Tomas Farrell Work Phone: [facility] 10-03-2021 23:52-0400 Respiratory rate 16 /min Kaylinn Dokken [facility] 10-03-2021 21:53-0400 Body temperature 97.7 [degF] Kaylinn Dokken [facility] 10-03-2021 21:53-0400 Diastolic blood pressure 68 mm[Hg] Kaylinn Dokken [facility] 10-03-2021 21:53-0400 Heart rate 68 /min Kaylinn Dokken [facility] 10-03-2021 21:53-0400 Respiratory rate 18 /min Kaylinn Dokken [facility] 10-03-2021 21:53-0400 SaO2% (BldA) [Mass fraction] 94 % Kaylinn Dokken [facility] 10-03-2021 21:53-0400 Systolic blood pressure 125 mm[Hg] Kaylinn Dokken [facility] 10-01-2021 19:00-0400 Diastolic blood pressure 75 mm[Hg] Chandan Adhikari [facility] 10-01-2021 19:00-0400 Heart rate 65 /min Chandan Adhikari [facility] 10-01-2021 19:00-0400 Hourly Rounding Chandan Adhikari [facility] 10-01-2021 19:00-0400 Promise to Return Chandan Adhikari [facility] 10-01-2021 19:00-0400 SaO2% (BldA) [Mass fraction] 95 % Chandan Munoze [facility] 10-01-2021 19:00-0400 Systolic blood pressure 118 mm[Hg] Chandan Munoze [facility] 10-01-2021 18:12-0400 Body temperature 98.42 [degF] Chandan Munoze [facility] 10-01-2021 18:12-0400 Diastolic blood pressure 82 mm[Hg] Chandan Munoze [facility] 10-01-2021 18:12-0400 Heart rate 68 /min Chandan Munoze [facility] 10-01-2021 18:12-0400 Respiratory rate 16 /min Chandan Munoze [facility] [facility] 18:12-0400 SaO2% (BldA) [Mass fraction] 92 % Chandan Munoze [facility] 10-01-2021 18:12-0400 Systolic blood pressure 119 mm[Hg] Chandan Munoze [facility] 09-30-2021 22:00-0400 Diastolic blood pressure 68 mm[Hg] [facility] 09-30-2021 22:00-0400 Heart rate 72 /min [facility] 09-30-2021 22:00-0400 Mean blood pressure 86 mm[Hg] [facility] 09-30-2021 22:00-0400 SaO2% (BldA) [Mass fraction] 96 % [facility] 09-30-2021 22:00-0400 Systolic blood pressure 121 mm[Hg] [facility] 09-30-2021 21:06-0400 Body temperature 97.52 [degF] [facility] 09-30-2021 21:06-0400 Diastolic blood pressure 65 mm[Hg] [facility] 09-30-2021 21:06-0400 Heart rate 75 /min [facility] 09-30-2021 21:06-0400 Respiratory rate 16 /min [facility] 09-30-2021 21:06-0400 SaO2% (BldA) [Mass fraction] 95 % [facility] 09-30-2021 21:06-0400 Systolic blood pressure 120 mm[Hg] [facility] 09-17-2021 11:30-0400 Diastolic blood pressure 84 mm[Hg] Chandan Adhikari [facility] 09-17-2021 11:30-0400 Heart rate 84 /min Chandan Adhikari [facility] 09-17-2021 11:30-0400 Respiratory rate 16 /min Chandan Adhikari [facility] 09-17-2021 11:30-0400 SaO2% (BldA) [Mass fraction] 98 % Chandan Adhikari [facility] 09-17-2021 11:30-0400 Systolic blood pressure 125 mm[Hg] Chandan Munoze [facility] 09-17-2021 09:31-0400 Body temperature 97.7 [degF] Chandan Munoze [facility] 09-17-2021 09:31-0400 Diastolic blood pressure 81 mm[Hg] Chandan Adhikari [facility] 09-17-2021 09:31-0400 Heart rate 78 /min Chandan Adhikari [facility] 09-17-2021 09:31-0400 Respiratory rate 16 /min Chandan Adhikari [facility] 09-17-2021 09:31-0400 SaO2% (BldA) [Mass fraction] 96 % Chandan Adhikari [facility] 09-17-2021 09:31-0400 Systolic blood pressure 127 mm[Hg] Chandan Adhikari [facility] 09-13-2021 11:11-0400 Blood Pressure Location JHONATAN SIDELL [facility] 09-13-2021 11:11-0400 Body temperature 97.7 [degF] JHONATAN SIDELL [facility] 09-13-2021 11:11-0400 Diastolic blood pressure 78 mm[Hg] JHONATAN SIDELL [facility] 09-13-2021 11:11-0400 Systolic blood pressure 138 mm[Hg] JHONATAN SIDELL [facility] 09-13-2021 10:54-0400 Blood Pressure Location JHONATAN SIDELL [facility] 09-08-2021 17:57-0400 Diastolic blood pressure 65 mm[Hg] DO Tomas Farrell Work Phone: [facility] 09-08-2021 17:57-0400 Heart rate 81 /min DO Tomas Farrell Work Phone: [facility] 09-08-2021 17:57-0400 Respiratory rate 18 /min DO Tomas Farrell Work Phone: [facility] 09-08-2021 17:57-0400 SaO2% (BldA) [Mass fraction] 92 % DO Tomas Farrell Work Phone: [facility] 09-08-2021 17:57-0400 Systolic blood pressure 135 mm[Hg] DO Tomas Farrell Work Phone: [facility] 09-08-2021 15:54-0400 Body height 157.48 cm DO Tomas Farrell Work Phone: [facility] 09-08-2021 15:54-0400 Body mass index (BMI) [Ratio] 25.6 kg/m2 DO Tomas Farrell Work Phone: [facility] 09-08-2021 15:54-0400 Body temperature 98.6 [degF] DO Tomas Farrell Work Phone: [facility] 09-08-2021 15:54-0400 Body weight 63.5 kg DO Tomas Farrell Work Phone: [facility] 09-08-2021 09:50-0400 Diastolic blood pressure 85 mm[Hg] Chandan Adhikari [facility] 09-08-2021 09:50-0400 Heart rate 65 /min Chandan Adhikari [facility] 09-08-2021 09:50-0400 Mean blood pressure 102 mm[Hg] Chandan Adhikari [facility] 09-08-2021 09:50-0400 Respiratory rate 15 /min Chandan Adhikari [facility] 09-08-2021 09:50-0400 SaO2% (BldA) [Mass fraction] 92 % Chandan Adhikari [facility] 09-08-2021 09:50-0400 Systolic blood pressure 135 mm[Hg] Chandan Adhikari [facility] 09-08-2021 08:39-0400 Body temperature 97.88 [degF] Chandan Adhikari [facility] 09-08-2021 08:39-0400 Diastolic blood pressure 77 mm[Hg] Chandan Adhikari [facility] 09-08-2021 08:39-0400 Heart rate 79 /min Chandan Adhikari [facility] 09-08-2021 08:39-0400 Respiratory rate 15 /min Chandan Adhikari [facility] 09-08-2021 08:39-0400 SaO2% (BldA) [Mass fraction] 94 % Chandan Adhikari [facility] 09-08-2021 08:39-0400 Systolic blood pressure 141 mm[Hg] Chandan Adhikari [facility] 09-08-2021 05:09-0400 Body temperature 96.98 [degF] Santiago Len [facility] 09-08-2021 05:09-0400 Diastolic blood pressure 88 mm[Hg] Santiago Len [facility] 09-08-2021 05:09-0400 Heart rate 86 /min Santiago Len [facility] 09-08-2021 05:09-0400 Respiratory rate 16 /min Santiago Len [facility] 09-08-2021 05:09-0400 SaO2% (BldA) [Mass fraction] 94 % Santiago Len [facility] 09-08-2021 05:09-0400 Systolic blood pressure 140 mm[Hg] Santiago Len [facility] 09-07-2021 22:35-0400 Diastolic blood pressure 74 mm[Hg] Santiago Len [facility] 09-07-2021 22:35-0400 Heart rate 75 /min Santiago Len [facility] 09-07-2021 22:35-0400 Mean blood pressure 92 mm[Hg] Santiago Len [facility] 09-07-2021 22:35-0400 Respiratory rate 15 /min Santiago Len [facility] 09-07-2021 22:35-0400 SaO2% (BldA) [Mass fraction] 90 % Santiago Len [facility] 09-07-2021 22:35-0400 Systolic blood pressure 129 mm[Hg] Santiago Len [facility] 09-07-2021 21:36-0400 Body temperature 97.7 [degF] Santiago Len [facility] 09-07-2021 21:36-0400 Diastolic blood pressure 65 mm[Hg] Santiago Len [facility] 09-07-2021 21:36-0400 Heart rate 78 /min Santiago Len [facility] 09-07-2021 21:36-0400 Respiratory rate 18 /min Santiago Len [facility] 09-07-2021 21:36-0400 SaO2% (BldA) [Mass fraction] 92 % Santiago Len [facility] 09-07-2021 21:36-0400 Systolic blood pressure 130 mm[Hg] Santiago Len [facility] 09-07-2021 07:55-0400 Diastolic blood pressure 62 mm[Hg] Carlos Jaxon [facility] 09-07-2021 07:55-0400 Heart rate 69 /min Carlos Jaxon [facility] 09-07-2021 07:55-0400 Mean blood pressure 85 mm[Hg] Carlos Jaxon [facility] 09-07-2021 07:55-0400 Respiratory rate 18 /min Carlos Jaxon [facility] 09-07-2021 07:55-0400 SaO2% (BldA) [Mass fraction] 95 % Carlos Jaxon [facility] 09-07-2021 07:55-0400 Systolic blood pressure 131 mm[Hg] Carlos Jaxon [facility] 09-07-2021 07:07-0400 Hourly Rounding Carlos Jaxon [facility] 09-07-2021 07:07-0400 Promise to Return Carlos Jaxon [facility] 09-07-2021 07:04-0400 Diastolic blood pressure 74 mm[Hg] Carlos Jaxon [facility] 09-07-2021 07:04-0400 Heart rate 68 /min Carlos Jaxon [facility] 09-07-2021 07:04-0400 Mean blood pressure 92 mm[Hg] Carlos Jaxon [facility] 09-07-2021 07:04-0400 Respiratory rate 18 /min Carlos Jaxon [facility] 09-07-2021 07:04-0400 SaO2% (BldA) [Mass fraction] 95 % Carlos Jaxon [facility] 09-07-2021 07:04-0400 Systolic blood pressure 129 mm[Hg] Carlos Coates [facility] 09-07-2021 06:15-0400 Promise to Return Carlos Coates [facility] 09-07-2021 05:44-0400 Body temperature 98.6 [degF] Carlos Coates [facility] 09-07-2021 05:44-0400 Diastolic blood pressure 85 mm[Hg] Carlos Coates [facility] 09-07-2021 05:44-0400 Heart rate 71 /min Carlos Coates [facility] 09-07-2021 05:44-0400 Respiratory rate 16 /min Carlos Coates [facility] 09-07-2021 05:44-0400 SaO2% (BldA) [Mass fraction] 98 % Carlos Coates [facility] 09-07-2021 05:44-0400 Systolic blood pressure 148 mm[Hg] Carlos Coates [facility] 09-06-2021 11:49-0400 Blood Pressure Location Tomas FARRELL [facility] 09-06-2021 11:49-0400 Body temperature 97.52 [degF] Tomas FARRELL [facility] 09-06-2021 11:49-0400 Diastolic blood pressure 64 mm[Hg] Tomas FARRELL [facility] 09-06-2021 11:49-0400 Heart rate 92 /min Tomas FARRELL [facility] 09-06-2021 11:49-0400 SaO2% (BldA) [Mass fraction] 95 % oTmas FARRELL [facility] 09-06-2021 11:49-0400 Systolic blood pressure 158 mm[Hg] Tomas FARRELL [facility] 08-08-2021 00:02-0400 Diastolic blood pressure 65 mm[Hg] DO Tomas Farrell Work Phone: [facility] 08-08-2021 00:02-0400 Heart rate 73 /min DO Tomas Farrell Work Phone: [facility] 08-08-2021 00:02-0400 Inhaled oxygen flow rate 2 L/min DO Tomas Farrell Work Phone: [facility] 08-08-2021 00:02-0400 Respiratory rate 24 /min DO Tomas Farrell Work Phone: [facility] 08-08-2021 00:02-0400 SaO2% (BldA) [Mass fraction] 93 % DO Tomas Farrell Work Phone: [facility] 08-08-2021 00:02-0400 Systolic blood pressure 137 mm[Hg] DO Tomas Farrell Work Phone: [facility] 08-07-2021 22:00-0400 Body height 157.48 cm DO Tomas Farrell Work Phone: [facility] 08-07-2021 22:00-0400 Body mass index (BMI) [Ratio] 22.8 kg/m2 DO Tomas Farrell Work Phone: [facility] 08-07-2021 22:00-0400 Body temperature 97.6 [degF] DO Tomas Farrell Work Phone: [facility] 08-07-2021 22:00-0400 Body weight 56.69 kg DO Tomas Farrell Work Phone: [facility] 07-27-2021 13:46-0500 Body height 154.94 cm DO Tomas Farrell Work Phone: [facility] 07-27-2021 13:46-0500 Body mass index (BMI) [Ratio] 26.5 kg/m2 DO Tomas Farrell Work Phone: [facility] 07-27-2021 13:46-0500 Body temperature 98.5 [degF] DO Tomas Farrell Work Phone: [facility] 07-27-2021 13:46-0500 Body weight 63.7 kg DO Tomas Farrell Work Phone: [facility] 07-27-2021 13:46-0500 Diastolic blood pressure 60 mm[Hg] DO Tomas Farrell Work Phone: [facility] 07-27-2021 13:46-0500 Heart rate 94 /min DO Tomas Farrell Work Phone: [facility] 07-27-2021 13:46-0500 Respiratory rate 18 /min DO Tomas Farrell Work Phone: [facility] 07-27-2021 13:46-0500 SaO2% (BldA) [Mass fraction] 92 % DO Tomas Farrell Work Phone: [facility] 07-27-2021 13:46-0500 Systolic blood pressure 112 mm[Hg] DO Tomas Farrell Work Phone: [facility] 07-22-2021 15:37-0500 Body height 157.48 cm DO Tomas Farrell Work Phone: [facility] 07-22-2021 15:37-0500 Body mass index (BMI) [Ratio] 25.7 kg/m2 DO Tomas Farrell Work Phone: [facility] 07-22-2021 15:37-0500 Body weight 63.95 kg DO Tomas Farrell Work Phone: [facility] 07-22-2021 15:36-0500 Body temperature 98.1 [degF] DO Tomas Farrell Work Phone: [facility] 07-22-2021 15:36-0500 Diastolic blood pressure 63 mm[Hg] DO Tomas Farrell Work Phone: [facility] 07-22-2021 15:36-0500 Heart rate 78 /min DO Tomas Farrell Work Phone: [facility] 07-22-2021 15:36-0500 Respiratory rate 20 /min DO Tomas Farrell Work Phone: [facility] 07-22-2021 15:36-0500 SaO2% (BldA) [Mass fraction] 91 % DO Tomas Farrell Work Phone: [facility] 07-22-2021 15:36-0500 Systolic blood pressure 141 mm[Hg] DO Tomas Farrell Work Phone: [facility] 07-19-2021 17:59-0500 Body temperature 97.3 [degF] DO Tomas Farrell Work Phone: [facility] 07-19-2021 17:59-0500 Diastolic blood pressure 76 mm[Hg] DO Tomas Farrell Work Phone: [facility] 07-19-2021 17:59-0500 Heart rate 66 /min DO Tomas Farrell Work Phone: [facility] 07-19-2021 17:59-0500 Respiratory rate 16 /min DO Tomas Farrell Work Phone: [facility] 07-19-2021 17:59-0500 SaO2% (BldA) [Mass fraction] 93 % DO Tomas Farrell Work Phone: [facility] 07-19-2021 17:59-0500 Systolic blood pressure 150 mm[Hg] DO Tomas Farrell Work Phone: [facility] 07-19-2021 17:06-0500 Body height 154.94 cm DO Tomas Farrell Work Phone: [facility] 07-19-2021 17:06-0500 Body mass index (BMI) [Ratio] 26.6 kg/m2 DO Tomas Jose Work Phone: [facility] 07-19-2021 17:06-0500 Body weight 63.95 kg DO Tomas Farrell Work Phone: [facility] 12-29-2020 15:43-0400 Diastolic blood pressure 35 mm[Hg] Alison Ferreira MD Work Phone: [facility] 12-29-2020 15:43-0400 Heart rate 87 /min Alison Ferreira MD Work Phone: [facility] 12-29-2020 15:43-0400 Respiratory rate 16 /min Uparcelia Ferreira MD Work Phone: [facility] 12-29-2020 15:43-0400 SaO2% (BldA) [Mass fraction] 95 % Alison Ferreira MD Work Phone: [facility] 12-29-2020 15:43-0400 Systolic blood pressure 105 mm[Hg] Alison Ferreira MD Work Phone: [facility] Encounters Encounter Date Encounter Type Care Provider Facility Start: 02-06-2024 End: 02-06-2024 Emergency department patient visit Chandan Adhikari Facility[facility] Start: 02-02-2024 End: 02-02-2024 ambulatory ANNE MARIE POCOS Not Available Start: 02-02-2024 End: 02-02-2024 ambulatory ANNE MARIE POCOS Not Available Start: 01-30-2024 End: 01-30-2024 ambulatory DO CECI REYES Facility:[facility] Start: 01-30-2024 End: 01-30-2024 Lab Drop off CECI REYES [facility] Start: 01-28-2024 End: 01-28-2024 Emergency department patient visit Didier Hooks [facility] Start: 01-27-2024 End: 01-27-2024 ambulatory ANNE MARIE POCOS Not Available Start: 01-12-2024 End: 01-12-2024 ambulatory Anne Marie Pocos Facility:[facility] Start: 01-12-2024 End: 01-12-2024 Patient encounter procedure Anne Marie Pocos [facility] Start: 01-12-2024 End: 01-12-2024 ambulatory ANNE MARIE POCOS Not Available Start: 01-10-2024 End: 01-10-2024 Emergency department patient visit Mati Taylor [facility] Start: 01-02-2024 End: 01-02-2024 Lab Drop off Amarilis Lucille Gold [facility] Start: 01-02-2024 End: 01-02-2024 ambulatory Amarilis C Vinayer Facility:[facility] Start: 01-02-2024 End: 01-02-2024 Patient encounter procedure Amarilis C Vinayer [facility] Start: 12-19-2023 End: 12-19-2023 ambulatory AZUL BATEMAN Facility:[facility] Start: 12-19-2023 End: 12-19-2023 Patient encounter procedure Gala Black [facility] Start: 12-16-2023 End: 12-16-2023 ambulatory AZUL BATEMAN Facility:[facility] Start: 11-07-2023 End: 11-07-2023 ambulatory Gala Angelesdad Facility:[facility] Start: 11-07-2023 End: 11-07-2023 Patient encounter procedure Gala Black [facility] Start: 10-28-2023 End: 10-28-2023 ambulatory AZUL BATEMAN Facility:[facility] Start: 10-09-2023 End: 10-09-2023 ambulatory Gala Black Facility:[facility] Start: 10-09-2023 End: 10-09-2023 Patient encounter procedure Gala Black [facility] Start: 09-11-2023 End: 09-12-2023 Pre-admission assessment AZUL BATEMAN [facility] Start: 09-07-2023 End: 09-12-2023 ambulatory DEFLASH AND WASH OPERATOR AZUL BATEMAN Facility:[facility] Start: 09-07-2023 End: 09-12-2023 Observation Ana Gandhi [facility] Start: 09-06-2023 ambulatory Tomas Moreno y:[facility] Start: 09-06-2023 End: 09-06-2023 Emergency department patient visit ANCIENT ART CURATOR Bebe Campofle Work Phone: [facility] Work Phone: Start: 08-28-2023 End: 08-29-2023 Pre-admission assessment AZUL BATEMAN [facility] Start: 08-28-2023 Non-patient / Non-visit ANCIENT ART CURATOR C lee ann Saffle Work Phone: [facility] Work Phone: Start: 08-27-2023 End: 09-02-2023 Evaluation and management of inpatient ANCIENT ART CURATOR Bebe Saffle Work Phone: [facility] [place] [address] Work Phone: Start: 08-27-2023 End: 08-27-2023 Emergency department patient visit Johny Willson [facility] Start: 08-22-2023 End: 08-22-2023 Emergency department patient visit SVITLANA Ortiz Work Phone: [facility] Work Phone: Start: 08-21-2023 End: 08-21-2023 Emergency department patient visit Johny Willson [facility] Start: 08-19-2023 End: 08-19-2023 ambulatory DEFLASH AND WASH OPERATOR AZUL BATEMAN Facility:[facility] Start: 08-18-2023 ambulatory Libia MarthaKaran Moreno y:[facility] Start: 08-14-2023 End: 08-14-2023 Emergency department patient visit Johny Willson [facility] Start: 08-13-2023 End: 08-13-2023 Emergency department patient visit Mati Taylor [facility] Start: 08-12-2023 End: 08-12-2023 Emergency department patient visit Mati Taylor [facility] Start: 08-09-2023 End: 08-10-2023 Emergency department patient visit Santiago Harrington [facility] Start: 08-07-2023 End: 08-07-2023 Emergency department patient visit Didier Hooks [facility] Start: 07-05-2023 End: 07-05-2023 Emergency department patient visit SVITLANA Ortiz Work Phone: [facility] Work Phone: Start: 06-19-2023 End: 06-19-2023 ambulatory JAMILAH TURNER Facility:[facility] Start: 06-19-2023 End: 06-19-2023 Lab Drop off JAMILAH Saleh OUSMANERISSA [facility] Start: 05-26-2023 End: 05-26-2023 Emergency department patient visit Carlos Coates [facility] Start: 05-04-2023 End: 05-04-2023 Emergency department patient visit Johny Willson Facility:[facility] Start: 03-14-2023 End: 03-14-2023 ambulatory JAMILAH TaylorKaran ROMEOVESTASarahi Facility:[facility] Start: 03-14-2023 End: 03-14-2023 Patient encounter procedure JAMILAH TURNER [facility] Start: 02-07-2023 End: 02-08-2023 ambulatory [facility]ANT YUAN [facility] Start: 02-03-2023 End: 02-04-2023 ambulatory [facility]UAN [facility] Start: 02-03-2023 End: 02-03-2023 Subsequent hospital visit by physician Jayant Yuan MD Work Phone: [facility] Start: 02-01-2023 End: 02-01-2023 Emergency department patient visit Johny Willson [facility] Start: 01-30-2023 End: 01-30-2023 ambulatory TOMAS FARRELL Facility:[facility] Start: 01-30-2023 End: 01-30-2023 Nursing evaluation of patient and report Nurse [facility] [employer] Work Phone: Urology Comment on above: Urinary retention (P rimary Dx); Feeling of incomplete bladder emptying; Recurrent UTI Start: 01-29-2023 End: 01-29-2023 ambulatory FRANTZ CURRAN Facility:[facility] Start: 01-29-2023 End: 01-29-2023 Patient encounter procedure Frantz Curran [facility] Work Phone: Urology Comment on above: Urinary retention (P rimary Dx); Urinary tract infection without hematuria, site unspecified; Pelvic floor dysfunction Start: 01-06-2023 End: 01-06-2023 Emergency department patient visit Chandan Adhikari [facility] Start: 01-04-2023 End: 01-04-2023 Emergency department patient visit Chandan Adhikari [facility] Start: 01-04-2023 ambulatory Radha Lara RN NURSE LINE LEADER Comment on above: Mcdonough Catheter Torres e Start: 12-29-2022 End: 12-29-2022 Emergency department patient visit Carlos Coates [facility] Start: 12-23-2022 End: 12-23-2022 Emergency department patient visit Didier Foygenoveva [facility] Start: 11-08-2022 End: 11-08-2022 Patient encounter procedure Patrick Anne [facility] Start: 10-18-2022 End: 10-18-2022 ambulatory LULA TREVINO . Facility:[facility] Start: 08-28-2022 End: 08-29-[address] TOMAS FARRELL Facility:[facility] Start: 06-28-2022 End: 06-28-2022 ambulatory TOMAS FARRELL [facility] Start: 06-28-2022 End: 06-28-2022 Phys/qhp telephone evaluation 11-20 min Alison Ferreira MD Work Phone: [facility] Comment on above: Post traumatic stres s disorder (PTSD) (Primary Dx); Panic disorder with agoraphobia; Bipolar 1 disorder, manic, mild (HCC) Start: 06-24-2022 Patient encounter procedure Ike Cervantes APRN.PLAY READER Work Phone: [facility] Start: 06-24-2022 Progress Note Ike ESCOBAR RN.PLAY READER Work Phone: [facility] Start: 06-17-2022 Patient encounter procedure Ike Cervantes APRN.PLAY READER Work Phone: [facility] Start: 06-17-2022 Progress Note Ike ESCOBAR RN.PLAY READER Work Phone: [facility] Start: 06-12-2022 Patient encounter procedure Matthew Tellezn Work Phone: [employer] [facility] [employer] [facility] Start: 06-12-2022 Progress Note Itri A Romaine Work Phone: [employer] Start: 06-11-2022 End: 06-11-2022 ambulatory Clark Hernandez Other [employer] Other Start: 06-11-2022 Office outpatient vi sit 15 minutes Clark Hernandez [facility] Start: 06-10-2022 End: 06-10-2022 Telemedicine consultation with patient Alison Ferreira MD Work Phone: [facility] Comment on above: Bipolar 1 disorder, manic, mild (HCC) (Primary Dx); Panic disorder with agoraphobia Start: 05-28-2022 End: 05-28-2022 Patient encounter procedure Tomas FARRELL [facility] [place] Start: 05-25-2022 End: 06-11-2022 Evaluation and management of inpatient DO Tomas Farrell Work Phone: [facility] Work Phone: Start: 05-24-2022 End: 05-25-2022 Emergency department patient visit Santiago Harrington [facility] Start: 05-24-2022 End: 05-24-[address] TOMAS FARRELL Facility:[facility] Start: 05-09-2022 Refill Alison Ferreira MD Work Phone: [facility] Comment on above: Panic disorder with agoraphobia Start: 05-03-2022 End: 05-03-2022 Emergency department patient visit Chandan Adhikari [facility] Start: 05-03-2022 End: 05-03-[address] TOMAS FARRELL Facility:[facility] Start: 05-02-2022 End: 05-02-2022 Emergency department patient visit Mati Taylor [facility] Start: 04-25-2022 End: 04-25-2022 Lab Drop off Tomas FARRELL [facility] Start: 04-25-2022 End: 04-25-2022 Patient encounter procedure Tomas FARRELL [facility] [place] Start: 04-24-2022 Patient encounter procedure Ike Cervantes APRN.PLAY READER Work Phone: [facility] Start: 04-24-2022 Progress Note Ike ESCOBAR RN.PLAY READER Work Phone: [facility] Start: 04-22-2022 Patient encounter procedure Roxannai Brionna Tellezn Work Phone: [facility] [employer] [facility] Start: 04-22-2022 Progress Note Itri A Romaine Work Phone: [employer] Start: 04-17-2022 End: 04-19-2022 Evaluation and management of inpatient Tereso HATFIELD [facility] Start: 04-14-2022 End: 04-14-2022 ambulatory LULA TREVINO . Facility:[facility] Start: 04-12-2022 Refill Alison Ferreira MD Work Phone: [facility] Comment on above: Panic disorder with agoraphobia Start: 04-10-2022 End: 04-10-[address] DOCTOR THOMSON Facility:[facility] Start: 04-10-2022 End: 04-10-2022 Emergency department patient visit Didier Hooks [facility] Start: 04-01-2022 Telephone encounter Quynh Hernandez MD Work Phone: Urology Comment on above: Patient Question Start: 03-28-2022 End: 03-28-2022 Lab Drop off Tomas FARRELL [facility] Start: 03-28-2022 End: 03-28-2022 Patient encounter procedure Tomas FARRELL [facility] Start: 03-27-2022 End: 03-27-2022 Patient encounter procedure Tomas FARRELL [facility] [facility] Start: 03-11-2022 End: 03-11-2022 ambulatory TOMAS FARRELL [facility] Start: 03-04-2022 End: 03-04-2022 Lab Drop off Tatum X Orzech [facility] Start: 03-04-2022 End: 03-04-2022 Patient encounter procedure Tatum X Orzech [facility] Start: 02-19-2022 Refill Alison Ferreira MD Work Phone: [facility] Comment on above: Panic disorder with agoraphobia Start: 02-18-2022 End: 02-18-[address] [place] [facility] [place] Start: 02-17-2022 End: 02-17-2022 Emergency department patient visit Didier Hooks [facility] Start: 02-15-2022 End: 02-15-2022 Emergency department patient visit Johny Willson [facility] Start: 02-13-2022 End: 02-13-2022 Emergency department patient visit Johny Willson [facility] Start: 02-11-2022 Telephone encounter Quynh Hernandez MD Work Phone: Urology Comment on above: Self Catheters/Patie nt Request Start: 02-07-2022 End: 02-07-2022 Orders Only Quynh Hernandez MD Work Phone: Urology Comment on above: Feeling of incomplet e bladder emptying (Primary Dx); Recurrent UTI Start: 02-06-2022 Chart abstracting Quynh Griffin Work Phone: [facility] Provider Adult Start: 02-03-2022 End: 02-05-2022 Evaluation and management of inpatient Jony SEE [facility] Start: 02-01-2022 End: 02-01-2022 Emergency department patient visit Mati Taylor [facility] Start: 01-31-2022 End: 01-31-2022 Emergency department patient visit Mati Taylor [facility] Start: 01-30-2022 End: 01-30-2022 Emergency department patient visit Mati Taylor [facility] Start: 01-23-2022 Telephone encounter Frantz trent APRN.DEFLASH AND WASH OPERATOR Work Phone: Urology Comment on above: Patient Question (Lula guillen's RN calling from [facility] stating that a cysto procedure was to be done on the patient, but they have not heard anything.//Please advise.) Start: 01-22-2022 Refill Adrian OTOOLE [facility] Comment on above: Panic disorder with agoraphobia Start: 01-16-2022 ambulatory Suellen Borges RN NURS E LINE LEADER Comment on above: Urinary Retention Start: 01-15-2022 End: 01-15-2022 Lab Drop off JHONATAN APPIAH [facility] Start: 01-15-2022 End: 01-15-2022 Patient encounter procedure JHONATAN APPIAH [facility] Start: 01-14-2022 End: 01-14-2022 Emergency department patient visit Chandan Adhikari [facility] Start: 01-14-2022 End: 01-14-2022 Lab Drop off Tomas FARRELL [facility] Start: 2022 End: 2022 Patient encounter procedure Frantz Curran APRN.DEFLASH AND WASH OPERATOR Work Phone: Urology Comment on above: Urinary retention (P rimary Dx); Urinary tract infection without hematuria, site unspecified; Chronic constipation Start: 12-27-2021 End: 12-27-2021 Patient encounter procedure JHONATAN APPIAH [facility] [place] Start: 12-26-2021 End: 12-26-2021 Patient encounter procedure Rosa WOODWARD [facility] Start: 12-20-2021 End: 12-20-2021 Emergency department patient visit Didier Hooks [facility] Start: 12-16-2021 End: 12-17-2021 Observation Zeyad Sharma [facility] Start: 12-15-2021 End: 12-15-2021 Emergency department patient visit Carlos Coates [facility] Start: 12-14-2021 End: 12-14-2021 Emergency department patient visit Johny Willson [facility] Start: 12-12-2021 Telephone encounter Frantz trent APRN.DEFLASH AND WASH OPERATOR Work Phone: Urology Comment on above: Patient Update Start: 12-09-2021 End: 12-09-2021 Emergency department patient visit Johny Dueñas [facility] Start: 12-07-2021 End: 12-07-2021 Patient encounter procedure Frantz Curran APRN.DEFLASH AND WASH OPERATOR Work Phone: Urology Comment on above: Urinary tract infect ion without hematuria, site unspecified (Primary Dx); Retention of urine; Pelvic floor dysfunction Start: 12-04-2021 End: 12-04-2021 Patient encounter procedure Frantz Curran APRN.DEFLASH AND WASH OPERATOR Work Phone: Urology Comment on above: Urinary tract infect ion without hematuria, site unspecified (Primary Dx); Feeling of incomplete bladder emptying; Pelvic pain Start: 12-03-2021 End: 12-03-[address] TIMO PRUETT . Facility: Start: 11-30-2021 End: 11-30-2021 Lab Drop off Tatum Liang [facility] Start: 11-30-2021 End: 11-30-2021 Patient encounter procedure Tatum X Orzechris [facility] Start: 11-23-2021 End: 11-23-2021 Lab Drop off Rosalie Bush [facility] Start: 11-23-2021 End: 11-23-2021 Patient encounter procedure Rosalie Bush [facility] Start: 11-21-2021 End: 11-21-2021 Emergency department patient visit Carlos Coates [facility] Start: 11-17-2021 End: 11-17-2021 Emergency department patient visit Chandan Adhikari [facility] Start: 11-16-2021 End: 11-16-2021 Emergency department patient visit Chandan Adhikari [facility] Start: 11-08-2021 End: 11-08-2021 Emergency department patient visit Didier Hooks [facility] Start: 11-07-2021 End: 11-07-2021 Patient encounter procedure Rosalie Bush [facility] Start: 11-06-2021 End: 11-06-2021 Emergency department patient visit Johny Willson [facility] Start: 11-01-2021 End: 11-01-2021 Emergency department patient visit Carlos Coates [facility] Start: 10-30-2021 End: 10-30-2021 ambulatory [facility] Start: 10-30-2021 End: 10-30-2021 Office outpatient visit 15 minutes Alison Ferreira MD Work Phone: [facility] Comment on above: Bipolar 1 disorder, manic, mild (HCC) (Primary Dx); Post traumatic stress disorder (PTSD); Panic disorder with agoraphobia; Insomnia due to mental disorder Start: 10-27-2021 End: 10-27-2021 Emergency department patient visit Johny Willson [facility] Start: 10-23-2021 End: 10-23-2021 Emergency department patient visit Chandan Adhikari [facility] Start: 10-22-2021 End: 10-23-2021 Emergency department patient visit Mati Taylor [facility] Start: 10-21-2021 ambulatory Anju Mina RN [facility] LINE LEADER Comment on above: UTI Start: 10-20-2021 End: 10-20-2021 Emergency department patient visit Chandan Adhikari [facility] Start: 10-14-2021 End: 10-14-2021 Emergency department patient visit Johny Dueñas [facility] Start: 10-12-2021 End: 10-12-2021 Emergency department patient visit Carlos Coates [facility] Start: 10-12-2021 End: 10-12-2021 Well adult monitoring check done Carlos Coates [facility] Start: 10-08-2021 End: 10-08-2021 Lab Drop off Dulce Roper [facility] Start: 10-04-2021 End: 10-04-2021 Emergency department patient visit Tomas Jose Work Phone: [facility] Start: 10-03-2021 End: 10-04-2021 Emergency department patient visit Mati Taylor [facility] Start: 10-02-2021 ambulatory Kyler robert MD Work Phone: Urology Start: 10-01-2021 End: 10-01-2021 Emergency department patient visit Chandan Adhikari [facility] Start: 10-01-2021 End: 10-01-2021 Well adult monitoring check done Chandan Adhikari [facility] Start: 09-30-2021 End: 09-30-2021 Emergency department patient visit Didier Hooks [facility] Start: 09-26-2021 End: 09-26-2021 Lab Drop off Rosalie Bush [facility] Start: 09-26-2021 End: 09-26-2021 Patient encounter procedure Rosalie Bush [facility] [place] Start: 09-17-2021 End: 09-17-2021 Patient encounter procedure Rosalie Bush [facility] Start: 09-17-2021 End: 09-17-2021 Emergency department patient visit Chandan Adhikari [facility] Start: 09-13-2021 ambulatory Irma Gregg RN NURSE LINE LEADER Comment on above: Urinary Retention Start: 09-13-2021 End: 09-13-2021 Lab Drop off JHONATAN APPIAH [facility] Start: 09-13-2021 End: 09-13-2021 Patient encounter procedure JHONATAN APPIAH [facility] Start: 09-08-2021 End: 09-08-2021 Emergency department patient visit DO Tomas Farrell Work Phone: [facility] Start: 09-08-2021 End: 09-08-2021 Emergency department patient visit Chandan Adhikari [facility] Start: 09-08-2021 End: 09-08-2021 Emergency department patient visit Santiago Harrington [facility] Start: 09-07-2021 End: 09-07-2021 Emergency department patient visit Santiago Harrington [facility] Start: 09-07-2021 End: 09-07-2021 Emergency department patient visit Carlos Coates [facility] Start: 09-06-2021 End: 09-06-2021 Lab Drop off Tomas FARRELL [facility] Start: 09-06-2021 End: 09-06-2021 Patient encounter procedure Tomas FARRELL [facility] [place] Start: 08-28-2021 End: 08-28-2021 Lab Drop off Rosa WOODWARD [facility] Start: 08-15-2021 End: 08-15-2021 Patient encounter procedure Rosa WOODWARD [facility] Start: 08-13-2021 Jaya Willis MA [facility] Comment on above: Panic disorder with agoraphobia Start: 08-07-2021 End: 08-08-2021 Emergency department patient visit DO Tomas Jose Work Phone: [facility] Start: 07-27-2021 End: 07-27-2021 Emergency department patient visit DO Tomas Jose Work Phone: [facility] Start: 07-22-2021 End: 07-22-2021 Emergency department patient visit DO Tomas Farrell Work Phone: [facility] Start: 07-19-2021 End: 07-19-2021 Emergency department patient visit DO Tomas Jose Work Phone: [facility] Start: 07-17-2021 End: 07-17-2021 ambulatory ALISON FERREIRA [facility] Start: 07-17-2021 End: 07-17-2021 Phys/qhp telephone evaluation 11-20 min Alison Ferreira MD Work Phone: [facility] Comment on above: Post traumatic stres s disorder (PTSD) (Primary Dx); Bipolar 1 disorder, manic, mild (HCC); Panic disorder with agoraphobia; Insomnia due to mental disorder Start: 07-16-2021 Refill Jessica Willis MA [facility] Comment on above: Panic disorder with agoraphobia Start: 06-15-2021 Refill Taniya Vargas MA [facility] Comment on above: Panic disorder with agoraphobia Start: 04-16-2021 End: 04-16-2021 Phys/qhp telephone evaluation 11-20 min Alison Ferreira MD Work Phone: [facility] Comment on above: Bipolar 1 disorder, manic, mild (HCC) (Primary Dx); Post traumatic stress disorder (PTSD); Panic disorder with agoraphobia; Insomnia due to mental disorder Start: 04-06-2021 Refill Taniya Vargas MA [facility] Start: 12-29-2020 End: 12-29-2020 Office outpatient visit 25 minutes Alison Ferreira MD Work Phone: [facility] Comment on above: Bipolar 1 disorder, manic, mild (HCC) (Primary Dx); Post traumatic stress disorder (PTSD); Panic disorder with agoraphobia; Insomnia due to mental disorder Start: 09-25-2020 End: 09-25-2020 Refill Stormy Harris LPN [facility] Comment on above: Panic Disorder with Agoraphobia Start: 09-19-2020 End: 09-19-2020 Phys/qhp telephone evaluation 11-20 min Alison eFrreira MD Work Phone: [facility] Comment on above: Bipolar 1 disorder, manic, mild (HCC) (Primary Dx); Post traumatic stress disorder (PTSD); Panic Disorder with Agoraphobia; Insomnia due to mental disorder Start: 05-01-2020 End: 05-01-2020 Phys/qhp telephone evaluation 11-20 min Alison Ferreira Work Phone: [facility] Comment on above: Bipolar 1 disorder, manic, mild (HCC) (Primary Dx); Post traumatic stress disorder (PTSD); Panic Disorder with Agoraphobia; Insomnia due to mental disorder Start: 09-27-2017 End: 09-29-2017 Evaluation and management of inpatient JAMES CANCHOLA Facility:[facility] Procedures Date Procedure Procedure Detail Performing Clinician Start: 09-06-2023 CT of head without contrast ANCIENT ART CURATOR Bebe Saffle Work Phone: Start: 09-06-2023 Plain chest X-ray ANCIENT ART CURATOR Bebe Campofle Work Phone: Start: 09-06-2023 SARS-CoV-2, Influenz a & RSV (PCR) ANCIENT ART CURATOR Bebe Saffle Work Phone: Start: 08-22-2023 Urine culture ANCIENT ART CURATOR Trevor monte Saffle Work Phone: Start: 08-22-2023 CT of head without contrast ANCIENT ART CURATOR Bebe Saffle Work Phone: Start: 07-05-2023 CT of head without contrast ANCIENT ART CURATOR Bebe Saffle Work Phone: Start: 07-05-2023 Plain chest X-ray ANCIENT ART CURATOR Bebe Mccabee Work Phone: Start: 07-05-2023 Urine culture ANCIENT ART CURATOR Trevor monte Saffle Work Phone: Start: 02-03-2023 Basic metabolic pane l calcium total Monse Faggionato ANCIENT ART CURATOR - TRANSPORT AIRCREWMAN Work Phone: Start: 05-27-2022 CT of head without contrast DO Tomas Farrell Work Phone: Start: 12-04-2021 Culture bacterial quanttative colony count urine Frantz Melania Magdy ANCIENT ART CURATOR.DEFLASH AND WASH OPERATOR Work Phone: Start: 10-02-2021 Urnls dip stick/tabl et rgnt auto w/o microscopy Bulk Order Provider Start: 09-08-2021 Urine culture DO Niranjan Farrell Work Phone: Start: 08-07-2021 Computed tomography of abdomen and pelvis with contrast DO Tomas Farrell Work Phone: Start: 08-07-2021 Urine culture DO Niranjan Farrell Work Phone: Start: 07-27-2021 Urine culture DO Niranjan pineda Jose Work Phone: Start: 07-22-2021 Urine culture DO Niranjan pineda Jose Work Phone: Start: 07-19-2021 Urine culture DO Niranjan pineda Jose Work Phone: Start: 07-06-2019 Urodynamic studies Vesta WOODWARD Start: 07-05-2019 cysto w/ UD Leesalvatore CHERYBrionna Barker Start: 10-04-2016 left femur ORIF w [...] 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 Lee MIRIDEJAN Open insertion of Br oviac central venous catheter Lee MIRIDEJAN Pain management medi cation delivery system pump (physical object) Rosa WOODWARD right leg surgery 3 Lee SA ALEMAN Comment on above: multiple surgeries t o Right leg including: plate, external fixator, gen insertion, graft multiple surgeries t o Right leg including: plate, external fixator, gen insertion, graft Plan of Treatment Date Care Activity Detail Author Start: 05-24-2032 Tetanus vaccination Tetanus: Every 1 0yrs [facility] Start: 06-19-2029 Tetanus vaccination Tetanus: Every 1 0yrs [facility] Start: 01-31-2024 BP CONTROLLED (<130/80) BP CONTROLLE D (<130/80) [facility] Start: 09-06-2023 Referral to [facility] Start: 09-02-2023 [facility] Start: 08-28-2023 Administration of prophylactic treatment [facility] Start: 08-27-2023 Referral to [facility] Start: 08-27-2023 Hospital admission [facility] Start: 08-22-2023 Bacteria identified in Urine by Culture [facility] Start: 07-05-2023 Bacteria identified in Urine by Culture [facility] Start: 02-07-2023 BP CONTROLLED (<130/80) BP CONTROLLE D (<130/80) [facility] Start: 01-24-2023 Influenza vaccination INFLUENZA (#1) [facility] Start: 2023 BP CONTROLLED (<130/80) BP CONTROLLE D (<130/80) [facility] Start: 12-24-2022 Influenza vaccination Flu vaccine (# 1) [facility] Start: 12-07-2022 BP CONTROLLED (<130/80) BP CONTROLLE D (<130/80) [facility] Start: 06-11-2022 [facility] Start: 06-10-2022 End: 06-10-2022 Telemedicine consultation with patient 06/10/2022 Telemedicine Telephone Psychiatry Alison Ferreira MD [address] [place] [address] [facility] Start: 06-09-2022 Urine culture Urine Culture [facility] Start: 06-03-2022 Referral to marine painter [facility] Start: 05-27-2022 Administration of prophylactic treatment [facility] Start: 05-26-2022 ADVANCE DIRECTIVE DISCUSSION ADVANCE DIRECTIVE DISCUSSION [facility] Start: 05-25-2022 Referral to [facility] Start: 05-25-2022 Hospital admission [facility] Start: 03-05-2022 End: 03-05-2022 Patient encounter procedure 03/05/2022 Office Visit Alison Fernandes MD [address] [facility] [address] [place] [id number] [facility] Start: 02-01-2022 End: 02-01-2022 Patient encounter procedure 02/01/2022 Office Visit Alison Fernandes MD [address] [facility] [address] [place] [id number] [facility] Start: 01-24-2022 Influenza vaccination [facility] Start: 10-15-2021 End: 10-15-2021 Patient encounter procedure 10/15/2021 Office Visit Alison Fernandes MD [address] [facility] [address] [place] [id number] [facility] Start: 09-03-2021 COVID-19 VACCINE (4 - Booster for Moderna series) COVID-19 VACCINE (4 - Booster for Moderna series) [facility] Start: 07-20-2021 End: 07-20-2021 Patient encounter procedure 07/20/2021 Office Visit Alison Fernandes MD [address] [facility] [address] [place] [id number] [facility] Start: 07-17-2021 End: 07-17-2021 Patient encounter procedure 07/17/2021 Office Visit Psychiatry Alison Ferreira MD [address] [facility] [address] [place] [id number] [facility] Start: 06-30-2021 COVID-19 VACCINE (4 - Booster for Moderna series) COVID-19 VACCINE (4 - Booster for Moderna series) [facility] Start: 06-30-2021 COVID-19 VACCINE (4 - Moderna series) COVID-19 VACCINE (4 - Moderna series) [facility] Start: 05-26-2021 ADVANCE DIRECTIVE DISCUSSION ADVANCE DIRECTIVE DISCUSSION [facility] Start: 05-26-2021 COVID-19 VACCINE (2 - Pfizer series) COVID-19 VACCINE (2 - Pfizer series) [facility] Start: 04-13-2021 End: 04-13-2021 Patient encounter procedure 04/13/2021 Office Visit Psychiatry Alison Ferreira MD [address] [id number] [facility] Start: 03-17-2021 COVID-19 Vaccine (3 - Booster for Moderna series) COVID-19 Vaccine (3 - Booster for Moderna series) [facility] Start: 02-15-2021 COVID-19 Vaccine (3 - Booster for Moderna series) COVID-19 Vaccine (3 - Booster for Moderna series) [facility] Start: 01-24-2021 Influenza vaccination Sequenti al Influenza Vaccine (#1) [facility] Start: 11-10-2020 COVID-19 Vaccine (3 - Booster for Moderna series) COVID-19 Vaccine (3 - Booster for Moderna series) [facility] Start: 08-29-2015 LIPID SCREEN LIPID SCREEN [facility] Start: 09-03-2013 DIABETES SCREEN DIABETES SCREEN [facility] Start: 01-07-2013 BONE DENSITY BONE DENSITY [facility] Start: 01-07-2013 Fall risk assessment Falls Risk Asse ssment [facility] Start: 01-07-2013 PNEUMOCOCCAL: 65+ (1 - PCV) PNEUMOCOCCAL: 65+ (1 - PCV) [facility] Start: 01-07-2013 PNEUMOVAX AGE 65 AND OVER WITH 5YR LOOKBACK (#1) PNEUMOVAX AGE 65 AND OVER WITH 5YR LOOKBACK (#1) [facility] Start: 01-07-1998 Screening for malign ant neoplasm of colon [facility] Start: 01-07-1998 SHINGRIX VACCINE (1 of 2) SHINGRIX VACCINE (1 of 2) [facility] Start: 01-07-1993 COLOGUARD (FIT-DNA) COLOGUARD (FIT-D NA) [facility] Start: 01-07-1993 Colonoscopy COLONOSCOPY [facility] Start: 01-07-1993 COLORECTAL CANCER SCREENING COLORECTAL CANCER SCREENING [facility] Start: 01-07-[address] COLONOGRAPHY [facility] Start: 01-07-1993 FECAL OCCULT BLOOD FECAL OCCULT BLOO D [facility] Start: 01-07-1993 SIGMOIDOSCOPY [facility] Start: 1988 Mammography MAMMOGRAM [facility] Start: 1988 Screening for malign ant neoplasm of breast Mammogram [facility] Start: 01-07-1967 DTaP/Tdap/Td vaccine (1 - Tdap) DTaP/Tdap/Td vaccine (1 - Tdap) [facility] Start: 01-07-1967 Urine microalbumin profile DTAP,TDAP,TD (1 - Tdap) [facility] Start: 01-07-1966 ANNUAL PCP TEAM EDUCATIONAL PARAPROFESSIONAL JADYN DISEASE VISIT ANNUAL PCP TEAM CHRONIC DISEASE VISIT [facility] Start: 01-07-1966 BP CONTROLLED (<130/80) BP CONTROLLE D (<130/80) [facility] Start: 01-07-1966 Hepatitis C antibody , confirmatory test Hepatitis C Screening [facility] Start: 01-07-1966 Hepatitis C screening Hepatitis C Sc [facility] Start: 01-07-1966 HEPATITIS C SCREENING HEPATITIS C SC [facility] Start: 1964 COVID-19 Vaccine (1) COVID-19 Vaccin e (1) [facility] Start: 1960 Adolescent depressio n screening assessment Depression Screening (PHQ9) [facility] Start: 1960 COVID-19 Vaccine (1) COVID-19 Vaccin e (1) [facility] Start: 01-07-1953 COVID-19 VACCINE (1) COVID-19 VACCIN E (1) [facility] Start: 01-07-1951 History and physical examination, annual for health maintenance Wellness Visit [facility] Start: 1948 COVID-19 Vaccine (#1) COVID-19 Vacci ne (#1) [facility] Fall risk assessment Falls Risk Asse ssment [facility] Start: 1948 Screening for malign ant neoplasm of colon [facility] Start: 1948 Screening for osteoporosis Dexa Scan [facility] Start: 1948 Screening mammography Mammogram [facility] End: 02-03-2023 Basic metabolic 2000 panel - Serum or Plasma [facility] Work Phone: Comment on above: Once for 1 Occurrenc es starting 02/03/2023 until 02/03/2023 Patient Education [facility] Work Phone: Patient referral [facility] Work Phone: [facility] Immunizations Immunization Date Immunization Notes Care Provider Antonio bello 05-24-2022 tetanus toxoid, redu rita diphtheria toxoid, and acellular pertussis vaccine, adsorbed Santiago Harrington [facility] 03-20-2022 influenza virus vaccine, unspecified formulation Tomas FARRELL [facility] 05-05-2021 SARS-CoV-2 (COVID-19 ) mRNA [id number] vax Tomas FARRELL [facility] 03-20-2021 influenza, injectabl e, quadrivalent, preservative free Rosa WOODWARD [facility] 02-23-2021 influenza virus vaccine, unspecified formulation Lee Condition One [facility] 09-15-2020 SARS-CoV-2 (COVID-19 ) mRNA-1273 vaccine Dulcenusrat Roper [facility] 08-18-2020 SARS-CoV-2 (COVID-19 ) mRNA-1273 vaccine Dulcenusrat Roper [facility] 02-25-2020 influenza virus vaccine, unspecified formulation Dulcenusrat Roper [facility] 06-19-2019 tetanus toxoid, redu rita diphtheria toxoid, and acellular pertussis vaccine, adsorbed; Translations: [Adacel (Tdap)] Rosa WOODWARD [facility] 02-25-2019 influenza virus vaccine, unspecified formulation Dulce Roper [facility] 01-24-2019 influenza virus vaccine, unspecified formulation Lee Condition One [facility] 06-25-2018 zoster vaccine recombinant Dulce Roper [facility] 01-16-2018 influenza virus vaccine, unspecified formulation Dulce [facility]oper [facility] [facility]2017 zoster vaccine recombinant Dulce Roper [facility] 07-25-2017 pneumococcal polysaccharide vaccine, 23 valent Lee SALAM [facility] 01-18-2017 influenza virus vaccine, unspecified formulation Dulce Roper [facility] 04-01-2016 pneumococcal conjuga te vaccine, 13 valent Lee SALAM [facility] 02-04-2016 influenza virus vaccine, unspecified formulation Dulce Roper [facility] 02-17-2015 influenza virus vaccine, unspecified formulation Dulce Roper [facility] 06-29-2014 zoster vaccine, live Dulce Roper [facility] 03-22-2013 pneumococcal polysaccharide vaccine, 23 valent Lee SALAM [facility] 01-27-2010 tetanus toxoid, redu rita diphtheria toxoid, and acellular pertussis vaccine, adsorbed Lee SALAM [facility] NEGATED: Highlighted row has not occurred!03-04-2022 influenza virus vaccine, unspecified formulation [employer] [facility] NEGATED: Highlighted row has not occurred!03-04-2022 SARS-CoV-2 mRNA (tozinameran 5y-11y) vaccine [employer] [facility] Payers Date Payer Category Payer Unknown 2021 Medicare UHC MEDICARE UHC DUAL COMPLETE HMO SNP [id number] 2021-Present [phone] [address] [place] [address] Medicare [id number] [id number]. [id number] 2019 Medicaid [id number] 1.2.840.063946.1.13.385.2. 7.3.716055.315 2019 Medicaid 1.2.840.324563. 1.13.385.2. 7.3.151388.315 2017 Medicare [id number] 2015 Unknown [place]THEM BCBS OUT [place] [facility] [place] [id number] 2015-Present [id number] 1.2.840.971752.1.13.385.2. 7.3.481827.315 2012 Unknown AARP AARP COMMER CI[employer] [id number] 2012-Present [id number] 1.2.840.230326.1.13.385.2. 7.3.134906.315 2003 Medicare MEDICARE MEDICAR E PART A & B [id number] 2003-Present [place] [id number] 1.2.840.809941.1.13.385.2. 7.3.293424.315 2003 Medicare [id number] 1.2.840.715451.1.13.385.2. 7.3.420504.315 2003 Medicare 1.2.840.671238. 1.13.385.2. 7.3.561942.315 2003 Medicare [id number] 1959 Medicaid [id number] 1959 Self-pay [id number] 1948 Unknown [id number] 2.16.840.1.329924.3.579.2. 903 1948 Unknown [id number] 2.16.840.1.364252.3.579.2. 903 1948 Unknown [id number] 2.16.840.1.285140.3.579.2. 903 1948 Unknown [id number] 2.16.840.1.856085.3.579.2. 903 1948 Unknown [id number] 2.16.840.1.361954.3.579.2. 593 1948 Unknown [id number] 2.16.840.1.265450.3.579.2. 593 1948 Unknown [id number] 2.16.840.1.545491.3.579.2. 593 1948 Unknown [id number] 2.16.840.1.352436.3.579.2. 593 1948 Unknown [id number] 2.16.840.1.689465.3.579.2. 593 1948 Unknown [id number] 2.16.840.1.613035.3.579.2. 593 1948 Unknown [id number] 2.16.840.1.965333.3.579.2. 593 1948 Unknown [id number] 2.16.840.1.387662.3.579.2. 727 1948 Unknown [id number] 2.16.840.1.994315.3.579.2. 727 1948 Unknown [id number]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 (more content not included)... [facility]09-06-2023 History of Present illness Narrative* Frantz Curran, ANCIENT ART CURATOR.DEFLASH AND WASH OPERATOR - 01/29/2023 1:16 PM EDT Maegan Marnie [address] [facility] [address] HISTORY OF PRESENT ILLNESS: Seen 01/08/22 for [...] removed and wanted to return back to [facility] due to shakiness have resolved. Urine was cloudy with lots of settlements in tube re educated pt on ISC with demonstration pt use mirror for guide. Was able to get cath in and drained out sterile water that was placed in bladder. Reviewed red flag signs on when to return to ER. 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 6. Keep the drainage bag below the [...] Up Care 01/06/2023 17:45:41 With:Dolly Valenzuela Address: [address] [place] [address], [address] [place] [phone] Business (1) When:01/09/2023 19:35:24 Comments:Follow-up with your primary care provider in 3 to 5 days. If symptoms worsen, do not improve, or new symptoms arise please report back to emergency department for further evaluation. [facility]08-12-2023 Hospital Discharge instructions Patient Education 01/04/2023 [...] your health care provider. General instructions Take laaz-fsu-uxhdanm and prescription medicines only as told by [...] provider. Document Revised: 01/25/2021 Document Reviewed: 01/25/2021 [employer] Patient Education 2022 [employer]. 01/04/2023 16:19:11 Indwelling Urinary Catheter Insertion, Care [...] provider. Document Revised: 08/01/2021 Document Reviewed: 04/27/2021 [employer] Patient Education 2021 [employer]. 01/04/2023 16:19:11 Indwelling Urinary Catheter Insertion Indwelling [...] provider. Document Revised: 01/09/2022 Document Reviewed: 01/09/2022 [employer] Patient Education 2022 [employer]. 01/04/2023 16:19:11 Acute Urinary Retention, Female, Netf-zj-Hcbk Acute Urinary Retention, Female Acute urinary retention [...] Follow these instructions at home: Medicines Take dnax-mhw-bombknl and prescription medicines only as told by [...] provider. Document Revised: 01/31/2021 Document Reviewed: 01/31/2021 [employer] Patient Education 2022 [employer]. 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 Doing exercises [...] of fat or sugar. General instructions Take oomn-vxa-bcqdbyj and prescription medicines only as told by [...] start slowly drinking other clear fluids. Take xhnf-rbk-mhrfcdp and prescription medicines only as told by your health care provider. Get help right away if you have any symptoms of severe dehydration. This information is not intended to replace advice given to you by your health care provider. Make sure you discuss any questions you have with your health care provider. Document Revised: 12/23/2019 Document Reviewed: 12/23/2019 [employer] Patient Education 2022 Healthy Humans. Follow Up Care 12/29/2022 12:33:02 With:XXXX NONE Address: [place] When:Within 3 Day(s) [facility]07-31-2023 Hospital Discharge instructions Patient Education 12/23/2022 [...] limityour activities and whether you should start jsqgz-uu-vjxpxv exercises for your injury. Ice Ice your [...] provider. Document Revised: 07/07/2020 Document Reviewed: 01/30/2018 [employer] Patient Education 2020 [employer] 12/23/2022 15:21:58 Foot Sprain Foot Sprain A [...] or abraham your foot. General instructions Take gkyr-tgj-yblmqge and prescription medicines only as told by [...] provider. Document Revised: 09/01/2020 Document Reviewed: 09/01/2020 [employer] Patient Education 2022 [employer]. 12/23/2022 15:21:58 Ankle Sprain Ankle Sprain An [...] andblue. Managing pain, stiffness, and swelling Take gtqw-iab-zobmtmb and prescription medicines only as told by [...] provider. Document Revised: 07/05/2021 Document Reviewed: 07/05/2021 [employer] Patient Education 2022 [employer] Humans. Follow Up Care 12/23/2022 13:12:33 With:Tomas FARRELL Address: [address] [facility] [place] [phone] Business (1) When:12/26/2022 14:57:41 Comments:Return to the emergency room if your pain gets worse or any new symptoms. [facility]07-31-2023 Evaluation + Plan noteExtracted from: Title:ED Note Author:Didier Hooks M.D. te:12/23/22 1. Right ankle sprain (S93.4 01A: [...] Scheduled Tests Laboratory* Basic Metabolic Panel 04/25/22 [facility]04-05-2023 NotePROCEDURE: XR ANKLE RT MIN 3 [...] Electronically authenticated by: JOSE ROBERTSON Date: 2022-08-28 15:13[facility]04-05-2023 NotePROCEDURE: XR ANKLE RT MIN 3 [...] Electronically authenticated by: JOSE ROBERTSON Date: 2022-08-28 15:13[facility]04-05-2023 NotePROCEDURE: XR ANKLE RT MIN 3 [...] Electronically authenticated by: JOSE ROBERTSON Date: 2022-08-28 15:13[facility]02-20-2023 History of Present illness Narrative* Alison Ferreira MD - 07/15/2022 12:11 PM EST Telephone Visit Via Phone Call [facility] [address] (11) [facility] [address] [facility] [phone] Telephone Visit [facility] 06/28/2022 Alison Ferreira MD Provider Location: [facility] Patient Location [place] Smearer: None Patient Location: Patient's Home Patient: Maegan [...] there are inherent diagnostic limitations compared to ohyv-eg-fsnb evaluations. We elected toproceed with the telephone visit telemedicine consultation. HPI Patient is interviewed over the phone. Audio quality was fair. Patient was hospitalized at [address] psychiatric unit in [facility] for breakthrough psychosis and florentin. Patient [...] and Plan of Care. documented in this [id number] NoteHNO ID: [id number] Author: Ike Cervantes APRN.PLAY READER Service: ? Author Type: Nurse Specialist Type: Progress Notes Filed: 06/27/2022 10:49 AM Note Text: [facility] NOTE NAME: CAS DYE NO.: [id number] DATE OF SERVICE: 06/24/2022 [facility] DATE OF : 1950 REASON FOR VISIT: The patient is a resident of [facility]. This is a skilled visit for encephalopathy, [...] present x4. Extremities: Non-edematous. Genitourinary: With nurse aideIrma, in room, visualized the catheter. Catheter hub was extremely short and not far past the labia, appears to be pulling on the catheter bag. There is clear, yellow urine noted in the catheter bag. IMPRESSION AND PLAN: 1. Encephalopathy with major depressive disorder and suicidal ideations. No suicidal ideations are recognized since the patient has been in [facility]. Currently on Risperdal, clonazepam routinely. 2. Bipolar [...] Fleets Enema as needed. DICTATED BY: KYA Bunn JOB# [id number] cc: [facility]01-30-2023 History of Present illness Narrative* Ike Cervantes APRN.PLAY READER - 06/24/2022 12:00 AM EST [facility] NOTE NAME: CAS DYE NO.: [id number] DATE OF SERVICE: 06/24/2022 [facility] DATE OF : 1950 REASON FOR VISIT: The patient is a resident of [facility]. This is a skilled visit for encephalopathy, [...] recognized since the patient has been in [facility]. Currently on Risperdal, clonazepam routinely. 2. Bipolar [...] suppository, FleetsEnema as needed. DICTATED BY: KYA Bunn JOB# [id number] cc: [facility] documented in this encounterOhiohealth Marion [facility] Hospital01-23-2023 NoteHNO ID: [id number] Author: Ike Cervantes APRN.PLAY READER Service: ? Author Type: Nurse Specialist Type: Progress Notes Filed: 06/19/2022 7:19 AM Note Text: [facility] NAME: CAS DYE NO.: [id number] DATE OF SERVICE: 06/17/2022 [facility] DATE OF : 1950 REASON FOR VISIT: The patient is a resident of [facility]. This is a skilled visit for encephalopathy [...] On fluticasone. DICTATED BY: KYA Bunn/Gwen JOB# [id number] cc: [facility]01-23-2023 History of Present illness Narrative* Ike Cervantes APRN.PLAY READER - 06/17/2022 12:00 AM EST [facility] NOTE NAME: MARNIECAS NO.: [id number] DATE OF SERVICE: 06/17/2022 [facility] DATE OF : 1950 REASON FOR VISIT: The patient is a resident of [facility]. This is a skilled visit for encephalopathy [...] On fluticasone. DICTATED BY: KYA Bunn JOB# [id number] cc: [facility] [facility] documented in this encounterOhiohealth [facility] Hospital01-18-2023 NoteHNO ID: [id number] Author: Matthew Gavin Service: ? Author Type: Physician Type: Progress Notes Filed: 06/13/2022 5:19 PM Note Text: [facility] NAME: CAS DYE NO.: [id number] DATE OF SERVICE: 06/12/[address] DATE OF : 1950 New patient history and physical HISTORY OF PRESENT ILLNESS: The patient is a 72-year-old female who is admitted to us from [facility] psychiatric unit with a diagnosis of [...] and GERD. She was initially transferred from [facility], where she had presented due to difficulty caring for herself with severe depression and suicidal thoughts. She was transferred to the [facility]. She was seen and [...] is followed by her pain specialist in [place]. She apparently was involved in a serious [...] pain syndrome - she (more content not included)...[facility] 06-12-2022 History of Present illness Narrative* Alison Ferreira MD - 06/12/2022 1:17 PM EST Patient does not show. Patient has been hospitalized for medical issues. documented in this [id number] History of Present illness Narrative* Matthew Gavin - 06/12/2022 12:00 AM EST [facility] NOTE NAME: CAS DYE NO.: [id number] DATE OF SERVICE: 06/12/2022 [facility] DATE OF : 1950 New patient history and physical HISTORY OF PRESENT ILLNESS: The patient is a 72-year-old female who is admitted to from [facility] psychiatric unit with a diagnosis of [...] and GERD. She was initially transferred from [facility], where she had presented due to difficulty caring for herself with severe depression and suicidal thoughts. She was transferred to the [facility]. She was seen and [...] is followed by her pain specialist in [place]. She apparently was involved in a serious [...] care. DICTATED BY: MD SHREE Lim/Gwen JOB# [id number] cc:DR Dejon Quintero [facility] documented in this encounterOhiohealth Marion [facility] Hospital01-17-2023 Evaluation note* Encounter Date Diagnosis Assessment [...] - G89.29) Continue with current treatment plan. [employer] Other 01-16-2023 Progress note Author Julian Arechiga [facility] June 10, 2022 2:12pm Note Date/Time June 10, 2022 2 :13pm [facility] [address] [place] [address] Psychiatry Progress Note Signed Patient: Maegan Dye MR#: [id number] 9 : 1950 Acct:[id number] Age/Sex: 72 / F Adm Date: 2 Loc: Room: [address] [place] [address] Type : ADM IN Attending Dr: Merary [...] showing some gradual improvement. [facility] Continue Risperdal 2.5 mg BID and [...] <Electronically signed by Julian Arechiga MD> 06/10/22 [facility] Work Phone: 1(823) 997-717501-15-2023 Progress note Author Rogelio casanova [facility] June 09, 2022 9:57am Note Date/Time June 09, 2022 9 :57am [facility] [address] [place] [address] Psychiatry Progress Note Signed Patient: Maegan Dye MR#: [id number] 9 : 1950 Acct:[id number] Age/Sex: 72 / F Adm Date: 2 Loc: Room: [address] [place] [address] Type : ADM IN Attending Dr: Merary [...] Zero. Documented By: Rogelio De MD 3 0954 Signed By: <Electronically signed by Rogelio De MD> 06/09/22 0957 [facility] Work Phone: 1(610) 506-822101-14-2023 Progress note Author Rogelio casanova [facility] June 08, 2022 8:37am Note Date/Time June 08, 2022 8 :36am [facility] [address] [place] [address] Psychiatry Progress Note Signed Patient: Maegan Dye MR#: [id number] 9 : 1950 Acct:[id number] Age/Sex: 72 / F Adm Date: 2 Loc: Room: [address] [place] [address] Type : ADM IN Attending Dr: Merary [...] signed by Rogelio De MD> 06/08/22 0837 [facility] Work Phone: 1(655) 444-387501-13-2023 Progress note Author Rogelio casanova [facility] June 07, 2022 9:53am Note Date/Time June 07, 2022 9 :53am [facility] [address] [place] [address] Psychiatry Progress Note Signed Patient: Maegan Dye MR#: [id number] 9 : 1950 Acct:[id number] Age/Sex: 72 / F Adm Date: 2 Loc: 1S Room: [address] [place] [address] Type : ADM IN Attending Dr: Merary [...] signed by Rogelio De MD> 06/07/22 0953 [facility] Work Phone: 1(428) 483-739101-12-2023 Progress note Author Rogelio casanova [facility] June 06, 2022 9:46am Note Date/Time June 06, 2022 9 :45am [facility] [address] [place], [place] [address] Psychiatry Progress Note Signed Patient: Maegan Dye MR#: [id number] 9 : 1950 Acct:[id number] Age/Sex: 72 / F Adm Date: 2 Loc: Room: [address] [place] [address] Type : ADM IN Attending Dr: Merary [...] signed by Rogelio De MD> 06/06/22 0946 [facility] Work Phone: 1(405) 814-289101-11-2023 Progress note Author Rogelio casanova [facility] June 05, 2022 9:19am Note Date/Time June 05, 2022 9 :19am [facility] [address] [place] [address] Psychiatry Progress Note Signed Patient: Maegan Dye MR#: [id number] 9 : 1950 Acct:[id number] Age/Sex: 72 / F Adm Date: 2 Loc: Room: [address] [place] [address] Type : ADM IN Attending Dr: Merary [...] to tell me that she is at [facility] and is May 2022. She talks about [...] Zero. Documented By: Rogelio De MD 3 [id number] Signed By: <Electronically signed by Rogelio De MD> 06/05/22 0919 [facility] Work Phone: 1(156) 255-383801-10-2023 Consult note Author Clark Hernandez [facility] June 04, 2022 2:29pm Note Date/Time June 03, 2022 5: 38pm [facility] [address] [place] [address] Pain Management Consult Note Signed Patient: Maegan Dye MR#: [id number] 9 : 1950 Acct:[id number] Age/Sex: 72 / F Adm Date: 2 Loc: Room: [address] [place] [address] Type: ADM IN Attending Dr: Merary De [...] pain pump and sees Dr Mccallum in [place] for pump management. The patient has missed [...] <Electronically signed by Clark Hernandez MD> 06/04/22 1428 [facility] Work Phone: 1(220) 337-167601-10-2023 Progress note Author Rogelio casanova [facility] June 04, 2022 9:21am Note Date/Time June 04, 2022 9 :20am [facility] [address] [place] [address] Psychiatry Progress Note Signed Patient: Maegan Dye MR#: [id number] 9 : 1950 Acct:[id number] Age/Sex: 72 / F Adm Date: 2 Loc: Room: [address] [place] [address] Type : ADM IN Attending Dr: Merary [...] Zero. Documented By: Rogelio De MD 3 [id number] Signed By: <Electronically signed by Rogelio eD MD> 06/04/22 0924 [facility] Work Phone: 1(267) 440-405101-09-2023 Progress note Author Rogelio casanova [facility] June 03, 2022 10:38am Note Date/Time June 03, 2022 10 :37am [facility] [address] [place] [address] Psychiatry Progress Note Signed Patient: Maegan Dye MR#: [id number] 9 : 1950 Acct:[id number] Age/Sex: 72 / F Adm Date: 2 Loc: Room: 6T4805-8 Type : ADM IN Attending Dr: Merary [...] <Electronically signed by Rogelio De MD> 06/03/[address] [place] [address] Ctr Work Phone: 1(788) 184-541801-08-2023 Progress note Author Julian Arechiga [facility] June 02, 2022 11:41am Note Date/Time June 02, 2022 11 :40am [facility] [address] [place] [address] Psychiatry Progress Note Signed with Joselin Patient: Maegan Dye MR#: [id number] 9 : 1950 Acct:[id number] Age/Sex: 72 / F Adm Date: 2 Loc: Room: [address] [place] [address] Type : ADM IN Attending Dr: Merary [...] is Zero. Documented By: Julian Arechiga MD 06/02/22 113 Signed By: <Electronically signed by Julian Arechiga MD> 06/02/22 113 [facility] Work Phone: 1(658) 805-987101-08-2023 Progress note Author Christelle Faith [facility] June 02, 2022 10:49am Note Date/Time June 02, 2022 9: 32am [facility] [address] [place] [address] Progress Note Signed Patient: Maegan Dye MR#: [id number] 9 : 1950 Acct:[id number] Age/Sex: 72 / F Adm Date: 2 Loc: 1S Room: [address] [place] [address] Type: ADM IN Attending Dr: Merary De [...] here. We will needto alternatively dose her. [facility] staff is given order to contact their office again 06/03 to determine dosing delivered via pump so that we can alternately dose. Also she would benefit from establishment of local pain management physician on discharge as she misses appointments having to travel to [place] every [address] Nora Mccallum/ pain management [phone] Documented By: NENA Barton 3 28 Signed By: <Electronically signed by NENA Faith> 06/02/22 1041 [facility] Work Phone: 1(539) 621-759101-07-2023 Progress note Author Julian Arechiga [facility] June 01, 2022 12:06pm Note Date/Time June 01, 2022 12 :06pm [facility] [address] [place] [address] Psychiatry Progress Note Signed Patient: Maegan Dye MR#: [id number] 9 : 1950 Acct:[id number] Age/Sex: 72 / F Adm Date: 2 Loc: 1S Room: [address] [place] [address] Type : ADM IN Attending Dr: Merary [...] is Zero. Documented By: Julian Arechiga MD 06/01/221204 Signed By: <Electronically signed by Julian Arechiga MD> 06/01/221205 [facility] Work Phone: 1(349) 574-382801-06-2023 Progress note Author Rogelio casanova [facility] May 31, 2022 9:14am Note Date/Time May 31, 2022 9: 14am [facility] [address] [place] [address] Psychiatry Progress Note Signed Patient: Maegan Dye MR#: [id number] 9 : 1950 Acct:[id number] Age/Sex: 72 / F Adm Date: 2 Loc: 1S Room: [address] [place] [address] Type : ADM IN Attending Dr: Merary De MD Copies to: ~ Date of Service: 05/31/2022 Subjective Subjective Narrative: Ms. Dye presents as confused and noted that people are praying inside her room.She said it is 2011 and it is . Staff noted that she slept well last [...] signed by Rogelio De MD> 05/31/22 0914 [facility] Work Phone: 1(313) 918-316801-05-2023 Progress note Author Rogelio casanova [facility] May 30, 2022 6:55am Note Date/Time May 30, 2022 6: 53am [facility] [address] [place] [address] Psychiatry Progress Note Signed Patient: Maegan Dye MR#: [id number] 9 : 1950 Acct:[id number] Age/Sex: 72 / F Adm Date: 2 Loc: Room: [address] [place] [address] Type : ADM IN Attending Dr: Merary [...] signed by Rogelio De MD> 05/30/22 0655 [facility] Work Phone: 1(851) 427-518501-04-2023 Progress note Author Rogelio caasnova [facility] May 29, 2022 1:13pm Note Date/Time May 29, 2022 12 :56pm [facility] [address] [place] [address] Psychiatry Progress Note Signed Patient: Maegan Dye MR#: [id number] 9 : 1950 Acct:[id number] Age/Sex: 72 / F Adm Date: 2 Loc: Room: [address] [place] [address] Type : ADM IN Attending Dr: Merary [...] signed by Rogelio De MD> 05/29/22 1313 [facility] Work Phone: 1(343) 608-562901-03-2023 Hospital Discharge instructions Additional Instructions Mcdonough catheter inserted 05/28/22. Reason:Urinary Retention Regular diet Activity as tolerated Boost Plus TID Mental health will be managed by rounding physicians at [facility] Work Phone: 1(453) 489-790001-03-2023 Progress note Author Rogelio casanova [facility] May 28, 2022 8:21am Note Date/Time May 28, 2022 8: 19am [facility] [address] [place] [address] Psychiatry Progress Note Signed Patient: Maegan Dye MR#: [id number] 9 : 1950 Acct:[id number] Age/Sex: 72 / F Adm Date: 2 Loc: Room: [address] [place] [address] Type : ADM IN Attending Dr: Merary [...] is Zero. Documented By: Rogelio De MD 0818 Signed By: <Electronically signed by Rogelio De MD> 05/28/22 0821 [facility] Work Phone: 1(491) 647-677501-02-2023 Progress note Author Christelle Faith [facility] May 27, 2022 6:45pm Note Date/Time May 27, 2022 6: 00pm [facility] [address] [place] [address] Hospitalist Progress Note Signed Patient: Maegan Dye MR#: [id number] 9 : 1950 Acct:[id number] Age/Sex: 72 / F Adm Date: 2 Loc: 1S Room: [address] [place] [address] Type: ADM IN Attending Dr: Merary De [...] morphine pump managed by pain specialist in [facility]. Patient reports running empty and she indicatespain ankle neck and back. Previous hospitalist did prescribe MS contin yesterday but nursing reported increased confusion and [...] spray 05/26/22 09:00 05/27/22 09:15 Fluticasone Propionate [place] 120 [place]/16 Gm Bottle INTRANASAL 05/26/23 08:59 2 spray [...] use Chronic Pain -Morphine pump, follows with [facility] area pain management Dr Nora Mccallum. Nursingto [...] By: <Electronically signed by NENA Faith> 05/27/22 7245 [facility] Work Phone: 1(441) 802-649401-02-2023 Progress note Author Rogelio casanova [facility] May 27, 2022 12:55pm Note Date/Time May 27, 2022 10 :18am [facility] [address] [place] [address] Psychiatry Progress Note Signed with Addenda Patient: Maegan Dye MR#: [id number] 9 : 1950 Acct:[id number] Age/Sex: 72 / F Adm Date: 2 Loc: Room: [address] [place] [address] Type : ADM IN Attending Dr: Merary [...] fractures was transferred to our facility from [facility] due to difficulty caring for herself, severe [...] <Electronically signed by MD REED Morrison> 05/27/22 4751 [facility] Work Phone: 1(920) 844-634801-01-2023 History and physical note Author Rogelio casanova [facility] May 26, 2022 9:13am Note Date/Time May 26, 2022 9: 07am [facility] [address] [place] [address] Psychiatry H&P Signed Patient: Maegan Dye MR#: [id number] 9 : 1950 Acct:[id number] Age/Sex: 72 / F Adm Date: 2 Loc: Room: [address] [place] [address] Type: ADM IN Attending Dr: Merary De MD Copies to: Rogelio De MD Tomas Farrell DO~ Date of Service: 05/26/2022 HPI History of Present Illness History of present illness: Ms. Dye is a 72 year old female with a reported history of depression, hypertension, anxiety, SIADH, COPD, GERD, CKD, neurogenic bladder requiring intermittent self-catheterization, history of UTIs and multiple fractures was transferred to our facility from [facility] due to difficulty caring for herself, severe [...] Appearance Clear Urine pH 5.5 Ur Specific [place] 1.018 Urine Protein 30 H Urine Glucose [...] signed by Rogelio De MD> 05/26/22 0913 [facility] Work Phone: 1(984) 173-149612-31-2022 Consult note Author Rome Luciano [facility] May 25, 2022 7:42pm Note Date/Time May 25, 2022 7:33pm [facility] [address] [place] [address] Hospitalist Consult Note Signed Patient: Maegan Dye MR#: [id number] 9 : 1950 Acct:[id number] Age/Sex: 72 / F Adm Date: 2 Loc: Room: [address] [place] [address] Type: ADM IN Attending Dr: Merary De MD Copies to: MD Tomas De León, DO Rome Luciano MD~ HPI DATE OF CONSULTATION: 05/25/22 REQUESTING PROVIDER: Merary De Consult Narrative Reason for Consult: Confusion, pain management for right ankle fracture HPI: Patient is a 72-year-old female with past medical history of hypertension, anxiety and depression disorder, SIADH, COPD, GERD, CKD, neurogenic bladder requiring intermittent self-catheterization, history of UTIs and multiple fractures was transferred to our facility from [facility] for inpatient psychiatry service. Hospitalist service is [...] in the past. Documents were reviewed from [facility]. Patient had CBC there with WBC of [...] -Afebrile, no leukocytosis according to labs at [facility] -Repeat CBC, CMP and UA here to [...] Physician Documented By: Rome Luciano MD 05/25/22 Signed By: <Electronically signed by Rome Luciano MD> 05/25/221941 [facility] Work Phone: 1(695) [phone] Evaluation + Plan noteExtracted from: Title:ED Note Author:Santiago Harrington DO Date :05/24/22 Hallucinations (R44.3: Hallu cinations, unspecified) Orders: Automated Diff CBC w/ Auto Diff Communication Order Comprehensive Metabolic Panel Consult to Mental Health Drug Screen Urine ECG 12 Lead Adult eGFR Ethanol Level Extra Blue Tube Extra SST Tube Rapid COVID Antigen ([facility]) Transfer Patient UA With Cult Reflex Future Appointments Appointment Date:05/28/2022 01:00:00 PM Scheduled Provider:Tomas FARRELL DO Location:[facility] Appointment Type: Open Future Scheduled Tests Laboratory* TIBC Calculated 08/06/21 * Sodium Level 12/20/21 * Basic Metabolic Panel 04/25/22 * Ferritin 08/06/21 * Folate Level 08/06/21 * Hemoglobin 12/20/21 * Iron Level 08/06/21 * Lipase Level 08/06/21 * Vitamin B12 Level 08/06/21 Radiology* XR Foot 3+ Views Right 07/25/21 [facility]12-09-2022 Hospital Discharge instructions Patient Education 05/03/2022 [...] Follow these instructions at home: Medicines Take ulnd-fyz-rrinidw and prescription medicines only as told by your health care provider. Ask your health care provider if the medicine prescribed to you: ?Requires you to avoid driving or using heavy machinery. ?Can cause constipation. You may need to take these actions to prevent or treat constipation: ?Drink enough fluid to keep your urine pale yellow. ?Take blnd-ozu-fgcjefz or prescription medicines. ?Eat foods that are [...] 05/06/2002 Document Revised: 05/31/2019 Document Reviewed: 05/31/2019 Elsevier Patient Education 2020 Healthy Humans. Follow Up Care 05/03/2022 11:40:28 With:Tomas FARRELL Address: [address] [place] [phone]- Business (1) When:05/06/2022 12:09:30 [facility]12-01-2022 Evaluation + Plan note Future Scheduled Tests Laboratory* Basic Metabolic Panel 04/25/22 [facility]12-01-2022 Hospital Discharge instructions Follow Up Care 04/25/2022 07:59:39 With:Tomas FARRELL DO, FAM Address: [address] [place] [address]- When:Within 3 Month(s) [facility] [place] 11-30-2022 NoteHNO ID: [id number] Author: Ike Cervantes APRN.PLAY READER Service: ? Author Type: Nurse Specialist Type: Progress Notes Filed: 04/26/2022 1:09 PM Note Text: [facility] NOTE NAME: CAS DYE NO.: [id number] DATE OF SERVICE: 04/24/2022 [facility] DATE OF : 1950 REASON FOR VISIT: The patient is a resident of [facility]. This is a skilled visit for hyponatremia, [...] that I just signed a prescription for Elliott. The patient states Elliott does nothing for her. I did express [...] care physician. DICTATED BY: KYA Bunn/Gwen JOB# [id number] cc:[facility]11-30-2022 History of Present illness Narrative* Ike Cervantes APRN.PLAY READER - 04/24/2022 12:00 AM EST [facility] NOTE NAME: CAS DYE NO.: [id number] DATE OF SERVICE: 04/24/2022 [facility] DATE OF : 1950 REASON FOR VISIT: The patient is a resident of [facility]. This is a skilled visit for hyponatremia, [...] that I just signed a prescription for Elliott. The patientstates Elliott does nothing for her. I did express [...] care physician. DICTATED BY: KYA Bunn/Gwen JOB# [id number] cc:[facility] NoteHNO ID: [id number] Author: Matthew Gavin Service: ? Author Type: Physician Type: Progress Notes Filed: 04/24/2022 6:09 PM Note Text: [facility] NOTE NAME: CAS DYE NO.: [id number] DATE OF SERVICE: 04/22/2022 [facility] DATE OF : 1950 New Patient History and Physical HISTORY OF PRESENT ILLNESS: The patient is a 72-year-old female who is admitted to us from [facility] with a diagnosis of acute on chronic [...] of morphine. She is followed by pain associate director career services in [facility]. Her condition stabilized and improved and she [...] is followed by her pain specialist in [facility]. She does have a morphine pump, but [...] In the meantime she is receiving p.r.n. Elliott. 3. Questionable history of urinary retention - she is indicating that she had a chronic (more content not included)...[facility] 04-22-2022 History of Present illness Narrative* Matthew Gavin - 04/22/2022 12:00 AM EST [facility] NOTE NAME: CAS DYE NO.: [id number] DATE OF SERVICE: 04/22/2022 [facility] DATE OF : 1950 New Patient History and Physical HISTORY OF PRESENT ILLNESS: The patient is a 72-year-old female who is admitted to us from [facility] with a diagnosis of acute on chronic [...] of morphine. She is followed by pain associate director career services in [facility]. Her condition stabilized and improved and she [...] is followed by her pain specialist in [facility]. She does have a morphine pump, but [...] In the meantime she is receiving p.r.n. Elliott. 3. Questionable history of urinary retention - [...] closely. DICTATED BY: MD SHREE Lim/Gwen JOB# [id number] cc:[facility] documented in [facility]-2022 Evaluation + Plan note Extracted from: Title:Discharge Note Author:DREW NANCYP-BC, Re nee Date:04/19/22 Hemodynamically stable condi tion Discharge To, Anticipated II - [facility] Unit Discharged to - Home with family care Discharge Status: Improved Discharge Instructions Given: To patient Discharge disposition: Home Prescriptions reviewed with Patient 47 minutes spent in discharge time with patient, broomcorn press feeder, collaborating MD, nursing staff, CRM Discharge Diet(s): Regular, Fat Modified- Low cholesterol, [...] tab(s), Oral, TID fluticasone 0.05 mg/inh Nasal [place], 2 spray(s), Nasal, Daily, 5 refills potassium [...] With When Contact Information Pain Clinic: [facility] [phone] Additional Instructions: Call for followup appointment - to have pain pump filled Tomas FARRELL Within 2 to 4 days [address] [place] [address]- Business (1) Additional Instructions: Hyponatremia, Lfga-aw-Lwqb Extracted from: Title:APSO Note Author:Jeanette RAMOS, Abeer Date:06/18/21 Hyponatremia - Acute on chronic baseline around 130, non compliance with home meds, Na 125 on admission Na level up to 129 today am -Fluid restrict to 1.5 L /day , discussed over the phone with broomcorn press feeder yesterday -Check osmol urine and blood, check urine Na Na level Q4-6 hrs -Consult nephrology safety and skill based pay manager consult for placement / PT / [...] Ordered: Initial Hospital Care/Day Moderate [address] in Status Sodium Level 2. Chronic [...] EST fluticasone nasal, 0.1 mg, 2 spray(s), [place], Nasal, Daily, Routine, Start date 04/18/22 9:00:00 [...] to ensure accuracy , however, inadvertently computerized product assembler mistakes may be present . Extracted from: Title:Admission H & P Author:Jeanette RAMOS, Abeer Date:04/17/22 Hyponatremia - Acute on chronic baseline around 130, non compliance with home meds -Fluid restrict to 1.5 L /day , discussed over the phone with Dr. Orozco -Check osmol urine and blood, check urine Na Na level Q4 -Consult nephrology: safety and skill based pay manager consult for placement / PT / [...] EST fluticasone nasal, 0.1 mg, 2 spray(s), [place], Nasal, Daily, Routine, Start date 04/18/22 9:00:00 [...] to ensure accuracy , however, inadvertently computerized product assembler mistakes may be present . Extracted from: [...] Date:04/29/2022 11:40:00 AM Scheduled Provider:Tomas FARRELL DO Location:[facility] Appointment Type: Open Diagnostic Tests Pending * Cortisol 04/18/22 Future Scheduled Tests Laboratory* TIBC Calculated 08/06/21 * Sodium Level 12/20/21 * Ferritin 08/06/21 * Folate Level 08/06/21 * Hemoglobin 12/20/21 * Iron Level 08/06/21 * Lipase Level 08/06/21 * Vitamin B12 Level 08/06/21 Radiology* XR Foot 3+ Views Right 07/25/21 [facility]11-25-2022 Hospital Discharge instructions Patient Education 04/19/2022 11:47:10 Hyponatremia, Acje-zs-Lnvn Hyponatremia Hyponatremia is when the amount of [...] symptoms. Follow these instructions at home: Take msic-nss-gzydgpu and prescription medicines only as told by [...] 01/22/2012 Document Revised: 07/29/2019 Document Reviewed: 04/15/2019 [employer] Patient Education 2020 [employer] Humans. Follow Up Care 04/17/2022 10:15:25 With:Pain Clinic: [facility] [phone] Address:Unknown When: Unknown Comments:Call for followup appointment - to have pain pump filled With:Tomas FARRELL Address: [address] [place], [place] [phone] Business (1) When:2 to 4 days [facility]11-16-2022 Evaluation + Plan noteExtracted from: Title:ED Note Author:Malick Ho PA-C te:04/10/22 1. Dysuria (R30.0: Dysuria) Orders: diazepam, 5 mg = 1 tab(s), Tab, Oral, Once, Stop date 04/10/22 17:47:00 EST, STAT, Start date 04/10/22 17:47:00 EST, 04/10/22 17:47:00 EST UA With Cult Reflex Future Appointments Appointment Date:04/29/2022 11:40:00 AM Scheduled Provider:Tomas FARRELL DO Location:[facility] Appointment Type: Open Future Scheduled Tests Laboratory* TIBC Calculated 08/06/21 * Sodium Level 12/20/21 * Ferritin 08/06/21 * Folate Level 08/06/21 * Hemoglobin 12/20/21 * Iron Level 08/06/21 * Lipase Level 08/06/21 * Vitamin B12 Level 08/06/21 Radiology* XR Foot 3+ Views Right 07/25/21 [facility]11-07-2022 Miscellaneous Notes* Telephone Encounter - Adriane Fischer LPN - 04/01/2022 1:51 PM EST Patient was transferred to this comic book writer, screaming in the telephone saying that she needs more catheters. She stated in a previous phone call that the last batch of catheters were stolen out of her car. Reached out to [facility] medical to see what needs to take place for catheters to be delivered to patientat this time. Patients son will be coming to [facility] to pickle sorter sample catheters, until patient receives hers again. [...] transferred to UROL nurse. documented in this encounter[facility]-2022 Evaluation + Plan note Diagnostic Tests Pending * Urine Culture 03/28/22 Future Scheduled Tests Laboratory* TIBC Calculated 08/06/21 * Sodium Level 12/20/21 * Ferritin 08/06/21 * Folate Level 08/06/21 * Hemoglobin 12/20/21 * Iron Level 08/06/21 * Lipase Level 08/06/21 * Vitamin B12 Level 08/06/21 Radiology* XR Foot 3+ Views Right 07/25/21 [facility]10-10-2022 Hospital Discharge instructions Patient Education 03/04/2022 [...] 01/22/2005 Document Revised: 11/10/2018 Document Reviewed: 05/13/2017 [employer] Patient Education 2020 Healthy Humans. 03/04/2022 13:54:46 Urinary Tract Infection, Adult Urinary [...] Treatment for this condition includes: Antibiotic medicine. Niwd-nmf-tgrmsrd medicines to treat discomfort. Drinking enough water [...] Follow these instructions at home: Medicines Take aqvu-xzs-tffmyek and prescription medicines only as told by [...] 02/19/2006 Document Revised: 04/29/2019 Document Reviewed: 11/19/2018 [employer] Patient Education 2020 [employer] Follow Up Care 03/04/2022 12:12:59 With:Tomas FARRELL DO, FAM Address: [address] [place] [phone]- When: Unknown [facility] 10-10-2022 Evaluation + Plan note Diagnostic Tests Pending * Urine Culture 03/04/22 Future Scheduled Tests Laboratory* TIBC Calculated 08/06/21 * Sodium Level 12/20/21 * Basic Metabolic Panel 03/27/21 * Ferritin 08/06/21 * Folate Level 08/06/21 * Hemoglobin 12/20/21 * Iron Level 08/06/21 * Lipase Level 08/06/21 * Vitamin B12 Level 08/06/21 Radiology* XR Foot 3+ Views Right 07/25/21 [facility]09-26-2022 Hospital Discharge instructions Patient Education 02/17/2022 22:48:16 Accidental Drug Poisoning, Adult Accidental Drug Poisoning, Adult Accidental drug poisoning happens when a person accidentally takes too much of a substance, such asa prescription medicine, an popy-bsa-enimvhj medicine, a vitamin, a supplement, or an [...] medicines. Cocaine. Heroin. Multivitamins that contain iron. Vrha-fgk-ffcjzbi cold and cough medicines. What increases the [...] Follow these instructions at home: Medicines Take mdmx-hry-gyhtfek and prescription medicines only as told by your health care provider. Before taking a new medicine, ask your health care provider whether the medicine: ?May cause side effects. ?Might react with other medicines. Keep a list of all the medicines that you take, including lpuk-zwt-nqdbgiu medicines, vitamins, supplements, and herbs. Bring this [...] your cell phone. The hotline of the [place] [employer] Poison Control Centers is . [...] a substance, such asa prescription medicine, an dvtx-xij-ndbzyvi medicine, a vitamin, a supplement, or an [...] 07/26/2005 Document Revised: 04/24/2018 Document Reviewed: 04/13/2018 [employer] Patient Education 2019 [employer] Follow Up Care 02/17/2022 16:00:07 With:Tomas FARRELL Address: [address] [phone] Business (1) When:02/20/2022 Comments:Follow-up with your primary care doctor next 2 to 3 days for further evaluation management. [facility]09-25-2022 Evaluation + Plan noteExtracted from: Title:ED Note Author:Didier Hooks M.D. te:02/17/22 1. Accidental overdose (T50. 901A: Poisoning [...] Date:03/04/2022 11:20:00 AM Scheduled Provider:Tomas FARRELL DO Location:[facility] Appointment Type: Open Future Scheduled Tests Laboratory* TIBC Calculated 08/06/21 * Sodium Level 12/20/21 * Basic Metabolic Panel 03/27/21 * Ferritin 08/06/21 * Folate Level 08/06/21 * Hemoglobin 12/20/21 * Iron Level 08/06/21 * Lipase Level 08/06/21 * Vitamin B12 Level 08/06/21 Radiology* XR Foot 3+ Views Right 07/25/21 [facility]09-23-2022 Hospital Discharge instructions Patient Education 02/15/2022 [...] care provider. Avoid caffeine, alcohol, and certain ulzk-dhs-byvcjbi cold medicines. These may make you feel worse. Ask your pharmacist which medicines to avoid. General instructions Take exvb-djt-wtpgpxl and prescription medicines only as told by [...] Depression Association of Kristen (ADAA): www.adaa.org National [place] on Mental Illness (MAYR): www.mary.org Contact a health care provider if [...] 05/06/2017 Document Revised: 10/12/2019 Document Reviewed: 10/12/2019 Elsevier Patient Education 2019 Healthy Humans. Follow Up Care 02/15/2022 15:00:41 With:Tomas FARRELL Address: [address] [place], [place] [phone] Business (1) When:02/18/2022 15:37:53 [facility]09-23-2022 Evaluation + Plan noteExtracted from: Title:ED Note Author:Malick Ho PA-C te:02/15/22 Anxiety (F41.9: Anxiety diso rder, unspecified) Orders: diazepam, 10 mg = 2 tab(s), Tab, Oral, Once, Stop date 02/15/22 15:06:00 EDT, STAT, Start date 02/15/22 15:06:00 EDT, 02/15/22 15:06:00 EDT Future Appointments Appointment Date:03/04/2022 11:20:00 AM Scheduled Provider:Tomas FARRELL DO Location:[facility] Appointment Type: Open Future Scheduled Tests Laboratory* TIBC Calculated 08/06/21 * Sodium Level 12/20/21 * Basic Metabolic Panel 03/27/21 * Ferritin 08/06/21 * Folate Level 08/06/21 * Hemoglobin 12/20/21 * Iron Level 08/06/21 * Lipase Level 08/06/21 * Vitamin B12 Level 08/06/21 Radiology* XR Foot 3+ Views Right 07/25/21 [facility]09-21-2022 Hospital Discharge instructions Patient Education 02/13/2022 [...] at pharmacies and retail stores. Eat bland, ayrh-nm-ekyyje foods in small amounts as you are [...] and water are not available, use hand compressor station engineer. Make sure that everyone in your household washes their hands frequently. Take yjqi-jnd-mrsjsmt and prescription medicines only as told by [...] and water are not available, use hand compressor station engineer. Make sure that everyone in your household [...] 06/07/2016 Document Revised: 10/29/2019 Document Reviewed: 10/20/2018 [employer] Patient Education 2020 [employer] 02/13/2022 12:34:18 Dysuria Dysuria Dysuria is pain [...] alcohol may irritate the prostate. Medicines Take cjrd-gic-hreyjws and prescription medicines only as told by [...] 02/07/2005 Document Revised: 04/24/2018 Document Reviewed: 02/26/2018 [employer] Patient Education 2020 [employer]. Follow Up Care 02/13/2022 11:41:36 With:Tomas FARRELL Address: [address] [place] [phone]- Business (1) When:02/16/2022 12:33:36 Comments:Call the office [...] weakness, or any new or worsening symptoms. [facility]09-21-2022 Evaluation + Plan noteExtracted from: Title:ED Note Author:Johny Willson DO Date: Dysuria (R30.0: Dysuria) Orders: ondansetron, 4 mg = 1 tab(s), Tab-Dis, Oral, Once, Stop date 02/13/22 11:46:00 EDT, STAT, Start date 02/13/22 11:46:00 EDT, 02/13/22 11:46:00 EDT phenazopyridine, 200 mg = 1 tab(s), Oral, TID, X 3 day(s), # 9 tab(s), Refills(s) 0, Pharmacy: [facility]/pharmacy #[id number], 154.9, cm, 02/13/22 11:50:00 EDT, Height/Length Dosing, 57.6, kg, 02/13/22 11:50:00 EDT, Weight Dosing UA With Cult Reflex Future Appointments Appointment Date:02/14/2022 02:40:00 PM Scheduled Provider:Tomas FARRELL DO Location:[facility] Appointment Type: Open Future Scheduled Tests Laboratory* TIBC Calculated 08/06/21 * Sodium Level 12/20/21 * Basic Metabolic Panel 03/27/21 * Ferritin 08/06/21 * Folate Level 08/06/21 * Hemoglobin 12/20/21 * Iron Level 08/06/21 * Lipase Level 08/06/21 * Vitamin B12 Level 08/06/21 Radiology* XR Foot 3+ Views Right 07/25/21 [facility]09-20-2022 Miscellaneous Notes* Telephone Encounter - Adriane Fischer LPN - 02/12/2022 11:40 AM EDT Rep from [address] [place] [address] stated that she will reach out to the patient and get her sent catheters at this time. No further action is required at this time. * Telephone Encounter - Anabelle Vasquez RN - 02/11/2022 4:53 PM EDT Spoke to patient. She will contact [address] [place] [address], has bright green flyer with the number on it to call if she hasn't been contacted. We reached out to rep from [address] [place] [address]. Told patient she can come into office for more catheters. Her son is not able to come in for her toget them. Will touch base with patient tomorrow. Anabelle Vasquez R.N. * Telephone Encounter - Sergio Guevara RN - 02/11/2022 4:28 PM EDT Patient calling States she needs more Self Catheters Gets them from [employer] (?) States she used all of the Self Cath Catheters that she received from nurse office training Not sure how to get more Self Catheters, etc? Requesting call back maral please Call patient CELL [phone] Leave Detailed messages documented in this encounterOhiohealth Marion General Hospital09-15-2022 NoteHNO ID: [id number] Author: Viridiana León Service: ? Author Type: ? Type: Procedures Filed: 02/07/2022 2:11 PM Note Text: CYSTOSCOPY Indications: Seen by Fratnz Urinary Retention/incomplete bladder have been followed by Dr. Manecra in past last seen 5-- urinary retention [...] of Dr. Hernandez. Kristi Carlsonibsarahi Provider Attestation: Quynh Sumner M.D., personally performed the services described in this documentation. All medical record entries made by the scribe were at my direction and in my presence. I have reviewed the chart and discharge instructions (if applicable) and agree that the record reflects my personal performance and is accurate and complete. Quynh Hernandez M.D.[facility]09-15-2022 Procedure note* Viirdiana León - 02/07/2022 1:00 PM EDTProcedure(s): CYSTOSCOPY [...] WITH PATIENT ISC 3 times/day F/u with TRANSPORT AIRCREWMAN Frantz in 3 months with PVR check By signing my name below, IViridiana, attest that this documentation has been prepared under the direction and in the presence of Dr. Hernandez. Iam Carlson Provider Attestation: Quynh Sumner M.D., personally performed the services described in this documentation. All medicalrecord entries made by the scribe were at my direction and in my presence. I have reviewed the chart and discharge instructions (if applicable) and agree that the record reflects my personal performance and is accurate and complete. Quynh Hernandez M.D. documented in this encounterOhiohealth Marion General Hospital09-15-2022 Nurse Note* Adriane Fischer LPN - [...] Education Session: None Instruction Provided To: Patient Cover Assembler Present: not applicable Discipline: Nursing Learning Topic: [...] times daily and to follow up with TRANSPORT AIRCREWMAN in 3 months. Carried out orders of [...] applicable. Adriane Fischer LPN documented in this encounterOhiohealth Marion General Hospital09-15-2022 NoteHNO ID: [id number] Author: Quynh Hernandez MD Service: ? Author Type: Physician Type: Progress Notes Filed: 02/06/2022 10:32 PM Note Text: cysto w PVR 02-07-22 seen by Frantz Urinary Retention/incomplete bladder have been followed by Dr. Mancera in past last seen -03-16 urinary retention Mcdonough catheters, placed in the ED and removed by PCP. Recurrent UTI 2-3/yr Pelvic floor dysfunction ,cant do any ISC Chronic pain on Morphine pump Bipolar disorder, PTSD ,Chronic Constipation take miralax hyponatruria is taking NA pills ,CKD state 3,On Eliquis UDS =[facility]09-14-2022 History of Present illness Narrative* Quynh [...] 3,On Eliquis UDS = documented in this encounterOhiohealth Marion General Hospital09-13-2022 Evaluation + Plan note Extracted from: Title:Discharge Note Author:DREW AGACNP-BC, Re nee Date:02/05/22 Hemodynamically stable condi tion Transported [...] tab(s), Oral, TID fluticasone 0.05 mg/inh Nasal [place], 2 spray(s), Nasal, Daily, 5 refills potassium [...] to 4 days [address] [place] [address]- Business (1) Additional Instructions: Please contact office for follow-up appointment. Jacqueline Puri Within 3 to 5 days [address] [facility] [address], [address] [place] [address]- Business (1) Additional Instructions: Call for followup appointment thyroid nodule Taj Orozco Within 1 to 2 weeks [facility] [address] [place] [address]- Business (1) Additional Instructions: Please keep your follow-up appointment with urology as previously scheduled Additional Instructions: Hyponatremia, Mvzc-qx-Qttk Addendum by Adela MONZON on February 05, 2022 10:26:40 EDT Patient had a quicker than anticipated recovery time Extracted from: Title:HypoNa Author:Taj Orozco MD Date:01/24 07/17 Impression and Plan 1. Acute [...] from: Title:Admission H & P Author:Amanda RAMOS, [facility] Date:02/03/22 Hyponatremia -Chronic, Acute worsening, likely hypovolemic [...] Radiology* XR Foot 3+ Views Right 07/25/21 [facility]09-13-2022 Hospital Discharge instructions Patient Education 02/05/2022 09:58:13 Hyponatremia, Jxfs-ha-Jvew Hyponatremia Hyponatremia is when the amount of [...] symptoms. Follow these instructions at home: Take aqqf-aec-ycifgfs and prescription medicines only as told by [...] 01/22/2012 Document Revised: 07/29/2019 Document Reviewed: 04/15/2019 [employer] Patient Education 2020 [employer] Follow Up Care 02/03/2022 09:57:23 With:[facility] Address:Unknown When:02/07/2022 12:45:00 Comments:Urology appointment With:Tomas FARRELL Address: [address] [place] [address]- Business (1) When:2 to 4 days Comments:Please contact office for follow-up appointment. With:Jacqueline Puri Address: [address] [place] [address] [address], [address] [place] [address]- Business (1) When:3 to 5 days Comments:Call for followup appointment thyroid nodule With:Taj Orozco Address: [facility] [address] [place] [address]- Business (1) When:1 to 2 weeks [facility]09-09-2022 Evaluation + Plan noteExtracted from: Title:ED Note Author:karmenJulio C banegas DOchris Staton Date :02/01/22 Accidental fall (W19.XXXA: U nspecified [...] Radiology* XR Foot 3+ Views Right 07/25/21 [facility]09-09-2022 Hospital Discharge instructions Patient Education 02/01/2022 [...] Ask your health care provider for a piiz-fv-fiay plan for gradually returning to activities. Ask [...] your friends, family, a trusted colleague, and it network engineer about your injury, symptoms, and restrictions. Have them watch for any new or worsening problems. General instructions Take dihd-znz-qwkrgpu and prescription medicines only as told by [...] 05/12/2006 Document Revised: 06/09/2019 Document Reviewed: 06/04/2019 [employer] Patient Education 2019 [employer]. 02/01/2022 08:19:38 Fall Prevention in the Home, [...] Use night-lights. Place frequently used items in ltlf-kv-ignky places. Lower the shelves around your home [...] of the way. Do not use floor thai or wax that makes floors slippery. If [...] include working with a physical therapist or emr trainer to improve your strength, balance, and endurance. Where to find more information Centers for Disease Control and Prevention, VIRI: https://www.cdc.gov National [place] on Aging: https://fo0gnhl.chely.nih.gov Contact a health care provider if: You [...] 05/02/2003 Document Revised: 04/24/2018 Document Reviewed: 12/25/2017 [employer] Patient Education [employer]. Follow Up Care 02/01/2022 06:15:42 With:Tomas FARRELL Address: [address] [place], [place] [id number]- Business (1) When:Within 3 Day(s) [facility]09-08-2022 Evaluation + Plan noteExtracted from: Title:ED [...] Radiology* XR Foot 3+ Views Right 07/25/21 [facility]09-08-2022 Hospital Discharge instructions Patient Education 01/31/2022 [...] 06/21/2017 Document Revised: 09/03/2019 Document Reviewed: 06/21/2017 [employer] Patient Education 2020 [employer]. 01/31/2022 04:24:39 Acute Urinary Retention, Female, Xnfu-rd-Mqwz Acute Urinary Retention, Female Acute urinary retention means that you cannot pee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 that you pee too little and your bladder is not emptied completely. If it is not treated, it can lead to kidney damage or other serious problems. Follow these instructions at home: Take tcrb-sbt-mqlpdls and prescription medicines only as told by [...] 10/28/2008 Document Revised: 04/24/2018 Document Reviewed: 06/13/2017 [employer] Patient Education [employer]. Follow Up Care 10/14/2021 10:24:31 With:Tomas FARRELL Address: [address] [place], [place] [phone]- Business (1) When:10/17/2021 11:31:26 Comments:Follow-up with your primary care provider in 3 days. If symptoms worsen, do not improve, or new symptoms arise please report back to emergency department immediately. [facility]20[facility]2022 Hospital Discharge instructions Patient Education 10/12/2021 [...] 11/25/2011 Document Revised: 05/05/2019 Document Reviewed: 05/05/2019 [employer] Patient Education 2020 [employer]. Follow Up Care 10/12/2021 20:40:40 With:GISELA RAMOS, Tomas Chakraborty, URL Address: [address] [place], [place] [address] [address] [facility] [address] [place] [address]- When:2 to 4 days With:Tomas FARRELL DO, [facility] Address: [address] [place] [address]- When:10/15/2021 [facility]-16-2022 Evaluation + Plan note Diagnostic Tests Pending * Urine Culture 10/08/21 Future Scheduled Tests Laboratory* TIBC Calculated 08/06/21 * Basic Metabolic Panel 03/27/21 * Ferritin 08/06/21 * Folate Level 08/06/21 * Iron Level 08/06/21 * Lipase Level 08/06/21 * Vitamin B12 Level 08/06/21 Radiology* XR Foot 3+ Views Right 07/25/21 [facility]12[facility]22 Hospital Discharge instructions Patient Education 10/04/2021 [...] on each side. Do this in a cknnw-sv-rqyj direction. ?If you are male: ?Use one [...] Clean the drainage bag according to the pta's instructions or as told byyour health care [...] and water are not available, use hand compressor station engineer. Always make sure there are no twists [...] 05/12/2006 Document Revised: 09/03/2019 Document Reviewed: 12/26/2017 [employer] Patient Education 2020 [employer]. 10/04/2021 00:51:33 Acute Urinary Retention, Female, Zxuu-ml-Hwct Acute Urinary Retention, Female Acute urinary retention means that you cannot pee (urinate) at all, or that you pee too little and your bladder is not emptied completely. If it is not treated, it can lead to kidney damage or other serious problems. Follow these instructions at home: Take itrm-ktc-whnrjrk and prescription medicines only as told by [...] 10/28/2008 Document Revised: 04/24/2018 Document Reviewed: 06/13/2017 [employer] Patient Education 2020 [employer] Follow Up Care 10/03/2021 21:50:18 With:Tomas FARRELL Address: [address] [place] [phone] Business (1) When:10/06/2021 Comments:Please follow-up with your urologist for further evaluation and management. [facility]05-11[facility]2022 Evaluation + Plan noteExtracted from: Title:ED [...] Radiology* XR Foot 3+ Views Right 07/25/21 [facility]-09[facility]2022 Hospital Discharge instructions Patient Education 10/01/2021 [...] 11/25/2011 Document Revised: 05/05/2019 Document Reviewed: 05/05/2019 [employer] Patient Education 2020 [employer]. Follow Up Care 10/01/2021 18:06:52 With:GISELA RAMOS, Tomas Chakraborty, URL Address: [address] [place] [phone]- When:2 to 4 days [facility]-09-2022 Hospital Discharge instructions Patient Education 09/30/2021 22:10:24 Acute Urinary Retention, Female, Tovv-sf-Deeg Acute Urinary Retention, Female Acute urinary retention means that you cannot pee (urinate) at all, or that you pee too little and your bladder is not emptied completely. If it is not treated, it can lead to kidney damage or other serious problems. Follow these instructions at home: Take jjeh-psy-wfocpub and prescription medicines only as told by [...] 10/28/2008 Document Revised: 04/24/2018 Document Reviewed: 06/13/2017 [employer] Patient Education 2020 [employer]. Follow Up Care 09/30/2021 21:04:21 With:GISELA RAMOS, LORIE Zapien Address: [address] [place], [place] [phone]- When:2 to 4 days Comments:Keep scheduled appointment [facility]-04-2022 Evaluation + Plan note Diagnostic Tests Pending * Urine Culture 09/26/21 Future Scheduled Tests Laboratory* TIBC Calculated 08/06/21 * Basic Metabolic Panel 03/27/21 * Ferritin 08/06/21 * Folate Level 08/06/21 * Iron Level 08/06/21 * Lipase Level 08/06/21 * Vitamin B12 Level 08/06/21 Radiology* XR Foot 3+ Views Right 07/25/21 [facility] Evaluation + Plan note Diagnostic Tests Pending * Urine Culture 09/17/21 Future Scheduled Tests Laboratory* TIBC Calculated 08/06/21 * Basic Metabolic Panel 03/27/21 * Ferritin 08/06/21 * Folate Level 08/06/21 * Iron Level 08/06/21 * Lipase Level 08/06/21 * Vitamin B12 Level 08/06/21 Radiology* XR Foot 3+ Views Right 07/25/21 [facility] Hospital Discharge instructions Patient Education 09/17/2021 11:46:36 Acute Urinary Retention, Female, Khwo-fk-Dhzs Acute Urinary Retention, Female Acute urinary retention means that you cannot pee (urinate) at all, or that you pee too little and your bladder is not emptied completely. If it is not treated, it can lead to kidney damage or other serious problems. Follow these instructions at home: Take wkwe-xin-xutysgg and prescription medicines only as told by [...] 10/28/2008 Document Revised: 04/24/2018 Document Reviewed: 06/13/2017 [employer] Patient Education 2020 [employer] Follow Up Care 09/17/2021 09:28:28 With:Rukhsana Mcarthur Address: [address] [place] [address] [phone] Business (1) When:09/20/2021 10:18:24 [facility] Hospital Discharge instructions Patient Education 09/13/2021 11:28:01 Urinary Tract Infection, Adult, Ypky-pc-Nymu Urinary Tract Infection, Adult A urinary tract [...] Follow these instructions at home: Medicines Take aylq-frn-neifedd and prescription medicines only as told by [...] 10/28/2008 Document Revised: 04/29/2019 Document Reviewed: 11/19/2018 [employer] Patient Education 2020 [employer]. 09/13/2021 11:27:34 Antibiotic Medicine, Adult Antibiotic Medicine, [...] 01/22/2005 Document Revised: 11/10/2018 Document Reviewed: 05/13/2017 [employer] Patient Education 2020 [employer]. 09/13/2021 11:27:33 Urodynamic Testing Urodynamic Testing What [...] including vitamins, herbs, eye drops, creams, and rssq-efc-hnzaszl medicines. ?Whether you are or may be [...] 03/08/2008 Document Revised: 08/31/2019 Document Reviewed: 03/16/2018 [employer] Patient Education 2020 [employer] [facility] [place] 04-21-2022 Miscellaneous Notes* Telephone Encounter - Irma [...] 6. : Post menopausal Protocols used: URINARY [id number] documented in this encounterOhio[facility]-2022 Evaluation + Plan note Extracted from: [...] Radiology* XR Foot 3+ Views Right 07/25/21 [facility]16[facility]22 Evaluation + Plan noteExtracted from: Title:ED Note Author:Vic BYRD, Malick Bray te:09/08/21 Dysuria (R30.0: Dysuria) Orders: lorazepam, 1 mg = 1 tab(s), Tab, Oral, Once, Stop date 09/08/21 8:40:00 EDT, STAT, Start date 09/08/21 8:40:00 EDT, 09/08/21 8:40:00 EDT phenazopyridine, 200 mg = 1 tab(s), Oral, TID, X 2 day(s), # 6 tab(s), Refills(s) 0, Pharmacy: [facility]/pharmacy #[id number], 158, cm, 09/08/21 8:41:00 EDT, Height/Length Dosing, 63, kg, 09/08/21 8:41:00 EDT, Weight Dosing Future Scheduled Tests Laboratory* TIBC Calculated 08/06/21 * Basic Metabolic Panel 03/27/21 * Ferritin 08/06/21 * Folate Level 08/06/21 * Iron Level 08/06/21 * Lipase Level 08/06/21 * Vitamin B12 Level 08/06/21 Radiology* XR Foot 3+ Views Right 07/25/21 [facility] Hospital Discharge instructions Patient Education 09/08/2021 [...] alcohol may irritate the prostate. Medicines Take lzmx-ord-rngilzm and prescription medicines only as told by [...] 02/07/2005 Document Revised: 04/24/2018 Document Reviewed: 02/26/2018 [employer] Patient Education 2020 [employer] Follow Up Care 09/08/2021 08:35:50 With:Tomas FARRELL Address: [address] [place], [place] [phone]- Business (1) When:09/11/2021 09:30:02 [facility]16[facility]2022 Hospital Discharge instructions Patient Education 09/08/2021 [...] complications. Follow these instructions at home: Take alik-wyt-zgyawpm and prescription medicines only as told by [...] 05/11/2007 Document Revised: 04/24/2018 Document Reviewed: 06/13/2017 [employer] Patient Education 2019 [employer]. Follow Up Care 09/08/2021 04:59:06 With:Rukhsana Mcarthur Address: [address], [address] [place] [phone] Business (1) When:09/11/2021 05:26:10 With:Tomas FARRELL Address: [address] [place] [address]- Business (1) When:Within 3 Day(s) [facility]16[facility]22 Hospital Discharge instructions Patient Education 09/07/2021 [...] heart problems, neurological conditions, and infections. Certain yepo-spy-ykxhqys and prescription medicines. Illegal drugs that increase [...] drug. Follow these instructions at home: Take sezo-iqg-wjanxfb and prescription medicines only as told by [...] 05/12/2006 Document Revised: 04/24/2018 Document Reviewed: 06/20/2017 [employer] Patient Education 2019 [employer] Follow Up Care 09/07/2021 21:20:10 With:Tomas FARRELL Address: [address] [place] [address] Business (1) When:Within 3 Day(s) [facility]15[facility]2022 Evaluation + Plan noteExtracted from: Title:ED Note Author:Carlos Coates MD Date: 1. Diarrhea (R19.7: Diarrhea , unspecified) UTI (urinary tract infection) (N39.0: Urinary tract infection, site not specified) Orders: ciprofloxacin, 500 mg = 1 tab(s), Oral, BID, # 14 tab(s), Refills(s) 0, Pharmacy: [facility]/pharmacy #[id number], 157, cm, 09/07/21 5:48:00 EDT, Height/Length Dosing, 63.8, kg, 09/07/21 5:48:00 EDT, Weight Dosing Diagnostic Tests Pending * Urine Culture 09/07/21 Future Scheduled Tests Laboratory* TIBC Calculated 08/06/21 * Basic Metabolic Panel 03/27/21 * Ferritin 08/06/21 * Folate Level 08/06/21 * Iron Level 08/06/21 * Lipase Level 08/06/21 * Vitamin B12 Level 08/06/21 Radiology* XR Foot 3+ Views Right 07/25/21 [facility]15[facility] Evaluation + Plan noteExtracted from: Title:ED [...] Radiology* XR Foot 3+ Views Right 07/25/21 [facility]-15[facility]2022 Hospital Discharge instructions Follow Up Care 09/07/2021 05:35:03 With:Tomas FARRELL Address: [address] [place] [phone]- Business (1) When:Within 3 Day(s) [facility]-14-2022 Evaluation + Plan note Diagnostic Tests Pending * Urine Culture 09/06/21 Future Scheduled Tests Laboratory* TIBC Calculated 08/06/21 * Basic Metabolic Panel 03/27/21 * Ferritin 08/06/21 * Folate Level 08/06/21 * Iron Level 08/06/21 * Lipase Level 08/06/21 * Vitamin B12 Level 08/06/21 Radiology* XR Foot 3+ Views Right 07/25/21 [facility]05[facility]2022 Hospital Discharge instructions Follow Up Care 08/28/2021 12:07:22 With:Tomas FARRELL DO, FAM Address: [address] [place] [phone]- When: only if needed With:Tomas FARRELL DO, FAM Address: [address] [place], [place] [phone] When: only if needed [facility] [place] 04-04-2022 History of Present illness Narrative* Alison Ferreira MD - 08/27/2021 8:58 AM EDT Telephone Visit Via Phone Call [facility] [address] ([address]) [facility] [address] [facility] [phone] Telephone Visit [facility] 07/17/2021 Alison Ferreira MD Provider Location: [facility] Patient Location [place] Smearer: None Patient Location: Patient's Home Patient: Maegan [...] there are inherent diagnostic limitations compared to drio-xz-xjmk evaluations. We elected toproceed with the telephone [...] and Plan of Care. documented in this [id number] Evaluation + Plan note Future Scheduled Tests Laboratory* TIBC Calculated 08/06/21 * Basic Metabolic Panel 03/27/21 * Ferritin 08/06/21 * Folate Level 08/06/21 * Iron Level 08/06/21 * Lipase Level 08/06/21 * Vitamin B12 Level 08/06/21 Radiology* XR Foot 3+ Views Right 07/25/21 [facility] Evaluation + Plan note Future Scheduled Tests Laboratory* TIBC Calculated 08/06/21 * Basic Metabolic Panel 03/27/21 * Ferritin 08/06/21 * Folate Level 08/06/21 * Iron Level 08/06/21 * Lipase Level 08/06/21 * Vitamin B12 Level 08/06/21 Radiology* XR Foot 3+ Views Right 07/25/21 [facility] 03-14-2022 Evaluation + Plan note Future Scheduled Tests Laboratory* TIBC Calculated 08/06/21 * Sodium Level 12/20/21 * Basic Metabolic Panel 03/27/21 * Ferritin 08/06/21 * Folate Level 08/06/21 * Hemoglobin 12/20/21 * Iron Level 08/06/21 * Lipase Level 08/06/21 * Vitamin B12 Level 08/06/21 Radiology* XR Foot 3+ Views Right 07/25/21 [facility] 03-14-2022 Evaluation + Plan note Future Scheduled Tests Laboratory* TIBC Calculated 08/06/21 * Sodium Level 12/20/21 * Ferritin 08/06/21 * Folate Level 08/06/21 * Hemoglobin 12/20/21 * Iron Level 08/06/21 * Lipase Level 08/06/21 * Vitamin B12 Level 08/06/21 Radiology* XR Foot 3+ Views Right 07/25/21 [facility] 03-14-2022 Evaluation + Plan note Future Scheduled Tests Laboratory* TIBC Calculated 08/06/21 * Sodium Level 12/20/21 * Basic Metabolic Panel 04/25/22 * Ferritin 08/06/21 * Folate Level 08/06/21 * Hemoglobin 12/20/21 * Iron Level 08/06/21 * Lipase Level 08/06/21 * Vitamin B12 Level 08/06/21 Radiology* XR Foot 3+ Views Right 07/25/21 [facility] 02-21-2022 Telephone encounter Note* Telephone Encounter - Jessica Willis MA - 07/16/2021 7:39 AM EST She has an appt on 07/17. She called twice on Friday and said that the pharmacy told her to call us and get the ok for a refill. [id number] Miscellaneous Notes* Telephone Encounter - Jessica Willis MA - 07/16/2021 7:39 AM EST She has an appt on 07/17. She called twice on Friday and said that the pharmacy told her to call us and get the ok for a refill. documented in this [id number] History of Present illness Narrative* Alison Ferreira MD - 04/16/2021 11:22 AM EST Telephone Visit Via Phone Call [facility] [address] ([address]) [facility] [address] [facility] [phone] Telephone Visit [facility] 04/16/2021 Alison Ferreira MD Provider Location: [facility] Patient Location [place] Smearer: None Patient Location: Patient's Home Patient: Maegan Dye Date of : 1950 (71 y.o. female) PCP: Tomas Farrell, DO I [...] there are inherent diagnostic limitations compared to lnah-bc-ymqz evaluations. We elected toproceed with the telephone [...] and Plan of Care. documented in this [id number] History of Present illness Narrative* Alison Ferreira MD - 02/25/2021 7:03 PM EDT Behavioral health outpatient progress note [facility] [phone] [facility] 12/29/2020 Alison Ferreira MD Provider Location: [facility] Patient: Maegan Dye Date of : 1950 [...] abnormal involuntary movements noted documented in this [id number] History of Present illness Narrative* Alison Ferreira MD - 09/29/2020 10:56 AM EDT Telephone Visit Via Phone Call [facility] [phone] Telephone Visit [facility] 09/19/2020 Alison Ferreira MD Provider Location: [facility] Patient Location [place] Smearer: None Patient Location: Patient's Home Patient: Maegan [...] there are inherent diagnostic limitations compared to jfif-an-phxz evaluations. We elected toproceed with the telephone [...] in this encounterOhioHealthDischarge summary Author Julian Arechiga [facility] June 11, 2022 12:35pm Note Date/Time June 11, 2022 1 0:05am [facility] [address] [place] [address] Discharge Summary Signed Patient: Maegan Dye MR#: [id number] 9 : 1950 Acct:[id number] Age/Sex: 72 / F Adm Date: 2 Loc: Room: [address] [place] [address]: Merary De MD Copies to: [...] fractures was transferred to our facility from [facility] due to difficulty caring for herself, severe [...] 19:40 Discharge Plan Discharge Plan Patient Disposition: [employer] Acute Care Activity: Ambulate as Tolerated Diet: Regular Additional Instructions: Mcdonough catheter inserted 05/28/22. Reason:Urinary Retention Regular diet Activity as tolerated Boost Plus TID Mental health will be managed by rounding physicians at [facility]. Instructions: Depression, Adult (DC), [facility] Behavioral Health DC [...] TID Rx Instructions: to rash Follow Up: [facility] Hotline [Outside] Tomas Farrell DO [Primary Care Provider] - (Please call to schedule an appointment for any medical needs) Documented By: Julian Arechiga MD 06/11/22 1005 Signed By: <Electronically signed by Julian Arechiga MD> 06/11/22 1235 [facility] Work Phone: Evaluation + Plan note Future Appointments Appointment Date:09/06/2021 11:40:00 AM Scheduled Provider:Tomas FARRELL DO Location:[facility] Appointment Type: Open Future Scheduled Tests Laboratory* TIBC Calculated 08/06/21 * Basic Metabolic Panel 03/27/21 * Ferritin 08/06/21 * Folate Level 08/06/21 * Iron Level 08/06/21 * Lipase Level 08/06/21 * Vitamin B12 Level 08/06/21 Radiology* XR Foot 3+ [facility] Appointment Date:09/17/2021 01:20:00 PM Scheduled Provider:Rosalie Bush NP Location:[facility] Appointment Type: ER/Hospital Follow Up Future Scheduled Tests Laboratory* TIBC Calculated 08/06/21 * Basic Metabolic Panel 03/27/21 * Ferritin 08/06/21 * Folate Level 08/06/21 * Iron Level 08/06/21 * Lipase Level 08/06/21 * Vitamin B12 Level 08/06/21 Radiology* XR Foot 3+ Views Right 07/25/21 [facility] [place] Evaluation + Plan note Future Appointments Appointment Date:09/17/2021 01:20:00 PM Scheduled Provider:Rosalie Bush NP Location:[facility] Appointment Type: ER/Hospital Follow Up Diagnostic Tests Pending * Urine Culture 09/13/21 Future Scheduled Tests Laboratory* TIBC Calculated 08/06/21 * Basic Metabolic Panel 03/27/21 * Ferritin 08/06/21 * Folate Level 08/06/21 * Iron Level 08/06/21 * Lipase Level 08/06/21 * Vitamin B12 Level 08/06/21 Radiology* XR Foot 3+ Views Right [facility]25/[facility] Appointments Appointment Date:11/08/2021 11:40:00 AM Scheduled Provider:Tomas FARRELL DO Location:[facility] Appointment Type: Open Future Scheduled Tests Laboratory* TIBC Calculated 08/06/21 * Basic Metabolic Panel 03/27/21 * Ferritin 08/06/21 * Folate Level 08/06/21 * Iron Level 08/06/21 * Lipase Level 08/06/21 * Vitamin B12 Level 08/06/21 Radiology* XR Foot 3+ Views Right [facility]25/[facility] App[facility]ments Appointment Date:11/07/2021 09:00:00 AM Scheduled Provider:Rosalie Bush NP Location:[facility] Appointment Type: Open Diagnostic Tests Pending * Urine Culture 11/06/21 Future Scheduled Tests Laboratory* TIBC Calculated 08/06/21 * Basic Metabolic Panel 03/27/21 * Ferritin 08/06/21 * Folate Level 08/06/21 * Iron Level 08/06/21 * Lipase Level 08/06/21 * Vitamin B12 Level 08/06/21 Radiology* XR Foot 3+ Views Right [facility]25/[facility] App[facility]ments Appointment Date:11/23/2021 01:00:00 PM Scheduled Provider:Rosalie Bush NP Location:[facility] Appointment Type: Open Diagnostic Tests Pending * Urine Culture 11/21/21 Future Scheduled Tests Laboratory* TIBC Calculated 08/06/21 * Basic Metabolic Panel 03/27/21 * Ferritin 08/06/21 * Folate Level 08/06/21 * Iron Level 08/06/21 * Lipase Level 08/06/21 * Vitamin B12 Level 08/06/21 Radiology* XR Foot 3+ Views Right 07/25/[facility] Appointments Appointment Date:12/26/2021 10:45:00 AM Scheduled Provider:Rosa WOODWARD MD Location[facility] Appointment Type:[facility] Follow Up Appointment Date:12/27/2021 01:20:00 PM Scheduled Provider:JHONATAN APPIAH CNP Location:[facility] Appointment Type: Hospital Follow Up w/TCM Future Scheduled Tests Laboratory* TIBC Calculated 08/06/21 * Sodium Level 12/20/21 * Basic Metabolic Panel 03/27/21 * Ferritin 08/06/21 * Folate Level 08/06/21 * Hemoglobin 12/20/21 * Iron Level 08/06/21 * Lipase Level 08/06/21 * Vitamin B12 Level 08/06/21 Radiology* XR Foot 3+ Views Right [facility]25/[facility] Future Appointments Appointment Date:12/27/2021 01:20:00 PM Scheduled Provider:JHONATAN APPIAH CNP Location:[facility] Appointment Type: Hospital Follow Up w/TCM Future Scheduled Tests Laboratory* TIBC Calculated 08/06/21 * Sodium Level 12/20/21 * Basic Metabolic Panel 03/27/21 * Ferritin 08/06/21 * Folate Level 08/06/21 * Hemoglobin 12/20/21 * Iron Level 08/06/21 * Lipase Level 08/06/21 * Vitamin B12 Level 08/06/21 Radiology* XR Foot 3+ Views Right 07/25/21 [facility] Evaluation + Plan note Future Appointments Appointment Date:01/29/2022 11:40:00 AM Scheduled Provider:Tomas FARRELL DO Location:[facility] Appointment Type: Open Diagnostic Tests Pending * Urine Culture 01/14/22 Future Scheduled Tests Laboratory* TIBC Calculated 08/06/21 * Sodium Level 12/20/21 * Basic Metabolic Panel 03/27/21 * Ferritin 08/06/21 * Folate Level 08/06/21 * Hemoglobin 12/20/21 * Iron Level 08/06/21 * Lipase Level 08/06/21 * Vitamin B12 Level 08/06/21 Radiology* XR Foot 3+ Views Right 07/25/21 [facility] App[facility]ments Appointment Date:01/29/2022 11:40:00 AM Scheduled Provider:Tomas FARRELL DO Location:[facility] Appointment Type: Open Diagnostic Tests Pending * Urine Culture 01/15/22 Future Scheduled Tests Laboratory* TIBC Calculated 08/06/21 * Sodium Level 12/20/21 * Basic Metabolic Panel 03/27/21 * Ferritin 08/06/21 * Folate Level 08/06/21 * Hemoglobin 12/20/21 * Iron Level 08/06/21 * Lipase Level 08/06/21 * Vitamin B12 Level 08/06/21 Radiology* XR Foot 3+ Views Right 07/25/21 [facility] App[facility]ments Appointment Date:01/29/2022 11:40:00 AM Scheduled Provider:Tomas FARRELL DO Location:[facility] Appointment Type: Open Future Scheduled Tests Laboratory* TIBC Calculated 08/06/21 * Sodium Level 12/20/21 * Basic Metabolic Panel 03/27/21 * Ferritin 08/06/21 * Folate Level 08/06/21 * Hemoglobin 12/20/21 * Iron Level 08/06/21 * Lipase Level 08/06/21 * Vitamin B12 Level 08/06/21 Radiology* XR Foot 3+ Views Right 07/25/21 [facility] [place] Evaluation + Plan note Future Appointments Appointment Date:04/29/2022 11:40:00 AM Scheduled Provider:Tomas FARRELL DO Location:[facility] Appointment Type: Open Appointment Date:05/28/2022 01:00:00 PM Scheduled Provider:Tomas FARRELL DO Location:[facility] Appointment Type: Open Future Scheduled Tests Laboratory* TIBC Calculated 08/06/21 * Sodium Level 12/20/21 * Basic Metabolic Panel 04/25/22 * Ferritin 08/06/21 * Folate Level 08/06/21 * Hemoglobin 12/20/21 * Iron Level 08/06/21 * Lipase Level 08/06/21 * Vitamin B12 Level 08/06/21 Radiology* XR Foot 3+ Views Right 07/25/21 [facility] [place] Evaluation + Plan note Future Appointments Appointment Date:04/29/2022 11:40:00 AM Scheduled Provider:Tomas FARRELL DO Location:[facility] Appointment Type:FM Open Appointment Date:05/28/2022 01:00:00 PM Scheduled Provider:Tomas FARRELL DO Location:[facility] Appointment Type: Open Diagnostic Tests Pending * Urine Culture 04/25/22 Future Scheduled Tests Laboratory* TIBC Calculated 08/06/21 * Sodium Level 12/20/21 * Basic Metabolic Panel 04/25/22 * Ferritin 08/06/21 * Folate Level 08/06/21 * Hemoglobin 12/20/21 * Iron Level 08/06/21 * Lipase Level 08/06/21 * Vitamin B12 Level 08/06/21 Radiology* XR Foot 3+ Views Right 07/25/21 [facility] App[facility]ments Appointment Date:05/28/2022 01:00:00 PM Scheduled Provider:Tomas FARRELL DO Location:[facility] Appointment Type: Open Future Scheduled Tests Laboratory* TIBC Calculated 08/06/21 * Sodium Level 12/20/21 * Basic Metabolic Panel 04/25/22 * Ferritin 08/06/21 * Folate Level 08/06/21 * Hemoglobin 12/20/21 * Iron Level 08/06/21 * Lipase Level 08/06/21 * Vitamin B12 Level 08/06/21 Radiology* XR Foot 3+ Views Right 07/25/21 [facility] App[facility]ments Appointment Date:08/28/2023 02:30:00 PM Scheduled Provider: Location:.[place] [place] Appointment Type:PT Eval (FT) [facility] Diagnosis Panic Disorder with Agoraphobia Agoraphobia with panic disorder [facility] Diagnosis Bipolar 1 disorder, manic, mild (HCC)- Primary Post traumatic stress disorder (PTSD) 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 [facility]* Diagnosis Bipolar 1 disorder, manic, mild (HCC)- Primary Post traumatic stress disorder (PTSD) Panic disorder with 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 [facility]* Diagnosis Panic disorder with agoraphobia Agoraphobia with panic disorder [facility]* Diagnosis Panic disorder with agoraphobia Agoraphobia with panic disorder [facility]* Diagnosis Panic disorder with agoraphobia Agoraphobia with panic disorder [facility]* Diagnosis Post traumatic stress disorder (PTSD)- Primary Bipolar 1 disorder, manic, mild (HCC) Panic disorder with 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 [facility]* Diagnosis Urinary tract infection without hematuria, site unspecified- Primary Retention of urine Retention of urine, unspecified Pelvic floor dysfunction Pelvic muscle wasting [facility]* Diagnosis Panic disorder with agoraphobia Agoraphobia with panic disorder [facility]* Diagnosis Urinary retention- Primary Retention of urine, unspecified Urinary tract infection without hematuria, site unspecified Chronic constipation Unspecified constipation [facility]* Diagnosis Urinary tract infection without hematuria, site unspecified- Primary Feeling of incomplete bladder emptying Incomplete bladder emptying Pelvic pain [facility]* Diagnosis Feeling of incomplete bladder emptying- Primary Incomplete bladder emptying Recurrent UTI Urinary tract infection, site not specified documented in this encounter [facility] note* Diagnosis Onset Date Resolution Status Acute encephalopathy acute Chronic pain acute Chronic prescription opiate use acute CKD (chronic kidney disease) stage 3, GFR 30-59 ml/min acute Hyponatremia acute Major depressive disorder, recurrent, moderate acute Multiple fracture acute Open wound of right hip acut e Polypharmacy acute Sleep-wake disorder acute [facility] Work Phone: Evaluation note* Diagnosis Bipolar 1 disorder, manic, mild (HCC)- Primary Panic disorder with agoraphobia Agoraphobia with panic disorder documented [facility] encounter [facility]* Diagnosis Post traumatic stress disorder (PTSD)- Primary Panic disorder with agoraphobia Agoraphobia with panic disorder Bipolar 1 disorder, manic, mild (HCC) [facility]* Diagnosis Urinary retention- Primary Retention of urine, unspecified Urinary tract infection without hematuria, site unspecified Pelvic floor dysfunction Pelvic muscle wasting [facility]* Diagnosis Urinary retention- Primary Retention of urine, unspecified Feeling of incomplete bladder emptying Incomplete bladder emptying Recurrent UTI Urinary tract infection, site not specified [facility]* Diagnosis Onset Date Resolution Status Major depressive disorder, recurrent, moderate acute [facility] Work Phone: History general Narrative - Reported* Type Description Date Medical History low potassium Medical History arthritis Medical History chronic back pain Medical History osteoarthritis Medical History HTN [employer] Other Hospital course Narrative No data available for this section [facility] No data available for this section [facility] Additional Instructions Take antibiotic as instructed until gone Call your doctor for follow-up appointment on Friday Continue taking medications as prescribed Return here if any problems persist or worsen You have a urine culture is pendingWestern [facility] Hospital Work Phone: Progress note No data available for this section [facility] Summary Purpose Family History No Family History Records Found Relationship Condition Age at Onset Recorded Date/T bryon Not Specified No pertinent family history Unknown Advance Directives No Advanced Directives Records FoundDocuments on File Type Date Recorded 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 We elected toproceed with the telephone visit telemedicine consultation. HPI Patient is a 70-year-old white female who is currently on Social Security income and disability. She has working diagnosis of bipolar disorder, PTSD and panic disorder with agoraphobia. She has been under my care for the last 5 years at my previous employment in [employer]. She is here tocontinue her psychiatric treatment to my care at [facility]. She is currently taking Celexa thiothixene, Ambien [...] section and content) DATE CREATED AUTHOR 11/12/2017 [facility] DATE CREATED AUTHOR AUTHOR'S ORGANIZ ATION 06/29/2022 [facility] DATE CREATED AUTHOR AUTHOR'S ORGANIZ ATION 11/01/2022 [facility] DATE CREATED AUTHOR AUTHOR'S ORGANIZ ATION 02/04/2023 [facility] DATE CREATED AUTHOR AUTHOR'S ORGANIZ ATION 02/08/2023 [facility] DATE CREATED AUTHOR AUTHOR'S ORGANIZ ATION 10/31/2023 [facility] [place] [facility] DATE CREATED AUTHOR AUTHOR'S ORGANIZ ATION 12/11/2023 [facility] DATE CREATED AUTHOR AUTHOR'S ORGANIZ ATION 12/26/2023 [facility] [place] [facility] DATE CREATED AUTHOR AUTHOR'S ORGANIZ ATION 01/04/2024 [facility] DATE CREATED AUTHOR AUTHOR'S ORGANIZ ATION 01/05/2024 [facility] DATE CREATED AUTHOR AUTHOR'S ORGANIZ ATION 01/[facility]/2024 [facility] DATE CREATED AUTHOR AUTHOR'S ORGANIZ ATION 01/19/2024 [facility] DATE CREATED AUTHOR AUTHOR'S ORGANIZ ATION 02/01/2024 [place] [facility] [place] [facility] DATE CREATED AUTHOR AUTHOR'S ORGANIZ ATION 02/02/2024 [facility] DATE CREATED AUTHOR AUTHOR'S ORGANIZ ATION 02/06/2024 [facility] Reason for Visit (unrecogniz ed section and [...] Comments Patient Question Patient's RN calling from [facility] stating that a cysto procedure was to [...] Care Teams (unrecognized sec tion and content) Day Care Aide Relationship Specialty Start Date End Date Tomas Farrell DO [address] [place] [address] PCP - General Family Medicine 04/03/15 Day Care Aide Relationship Specialty Start Date End Date Tomas Farrell DO [address] [place] [address] PCP - General Family Medicine 04/03/15 Day Care Aide Relationship Specialty Start Date End Date Tomas Farrell DO [address] [place] [address] PCP - General Family Medicine 04/03/15 Day Care Aide Relationship Specialty Start Date End Date Tomas Farrell DO [address] [place] [address] PCP - General Family Medicine 04/03/15 Day Care Aide Relationship Specialty Start Date End Date Tomas Farrell DO [address] [place] [address] PCP - General Family Medicine 04/03/15 Day Care Aide Relationship Specialty Start Date End Date Tomas Farrell DO PCP - General Family Practice 08/26/13 Team Status: Inactive Member Role Status Dates Tomas Farrell , DO Primary Care Provider Active Albino Ballard , DO Emergency Provider Active Team Status: Inactive Member Role Status Dates Tomas Farrell , DO Primary Care Provider Active Gloria Moss , [employer] Emergency Provider Active Team Status: Inactive Member Role Status Dates Tomas Farrell , DO Primary Care Provider Active Jennifer Arreaga , [facility] Emergency Provider Active Team Status: Inactive Member Role Status Dates Tomas Farrell , DO Primary Care Provider Active Maciej Rodriguez , DO Emergency Provider Active Team Status: Inactive Member Role Status Dates Tomas Farrell , DO Primary Care Provider Active iKng Carvajal , DO Emergency Provider Active Team Status: Inactive Member Role Status Dates Tomas Farrell , DO Primary Care Provider Active Jaxon Buchanan Jr, MD Emergency Provider Active Team Status: Active Member Role Status Dates Tomas Farrell , DO Primary Care Provider Active Day Care Aide Relationship Specialty Start Date End Date Tomas Farrell DO PCP - General Family Practice 08/26/13 Day Care Aide Relationship Specialty Start Date End Date Tomas Farrell DO [address] [place] [address] PCP - General Family Medicine 04/03/15 Day Care Aide Relationship Specialty Start Date End Date Tomas Farrell DO PCP - General Family Practice 08/26/13 Day Care Aide Relationship Specialty Start Date End Date Tomas Farrell DO PCP - General Family Practice 08/26/13 Day Care Aide Relationship Specialty Start Date End Date Tomas Farrell DO PCP - General Family Practice 08/26/13 Day Care Aide Relationship Specialty Start Date End Date Tomas Farrell DO PCP - General Family Practice 08/26/13 Day Care Aide Relationship Specialty Start Date End Date Tomas Farrell DO PCP - General Family Practice 08/26/13 Day Care Aide Relationship Specialty Start Date End Date Tomas Farrell DO PCP - General Family Practice 08/26/13 Day Care Aide Relationship Specialty Start Date End Date Jose, Tomas Guerrier DO PCP - General Family Medicine 08/26/13 Day Care Aide Relationship Specialty Start Date End Date Tomas Farrell DO PCP - General Family Medicine 08/26/13 [address] [place] [address] Anesthesiology 03/07/22 Day Care Aide Relationship Specialty Start Date End Date Tomas Farrell DO PCP - General Family Medicine 08/26/13 [address] [place] [address] Anesthesiology 03/07/22 Team Status: Inactive Member Role Status Dates Tomas Farrell DO Primary Care Provider Active Merary De MD Admit Provider, Attending Pr ovider Active Monica Gomez NP Other Provider Active FARHANA Harris Other Provider Active Clark Hernandez MD Other Provider Active Jaxon Arzola MD Other Provider Active Day Care Aide Relationship Specialty Start Date End Date Tomas Farrell DO [address] [address] PCP - General Family Medicine 04/03/15 Day Care Aide Relationship Specialty Start Date End Date Tomas Farrell DO PCP - General Family Medicine 08/26/13 [address] [place], [place] [id number] Anesthesiology 03/07/22 Day Care Aide Relationship Specialty Start Date End Date Tomas Farrell DO [address] [address] PCP - General Family Medicine 04/03/15 Day Care Aide Relationship Specialty Start Date End Date Tomas Farrell DO PCP - General Family Medicine 08/26/13 Nora Mccallum [address] [place], [place] [id number] Anesthesiology 03/07/22 Dolly Valenzuela [address] [place] [phone] Referring Family Medicine 01/03/23 Day Care Aide Relationship Specialty Start Date End Date Tomas Farrell DO PCP - General Family Medicine 08/26/13 Nora Mccallum [address] [place] [address] Anesthesiology 03/07/22 Dolly Valenzuela [address] [place] [phone] Referring Family Medicine 01/03/23 Day Care Aide Relationship Specialty Start Date End Date Tomas Farrell DO PCP - General Family Medicine 08/26/13 Nora Mccallum [address] [place] [address] Anesthesiology 03/07/22 Dolly Valenzuela [address] [place] [phone] Referring Family Medicine 01/03/23 Day Care Aide Relationship Specialty Start Date End Date Jayant Yuan MD [address] [place] [id number] PCP - General Psychiatry 11/30/18 Team Status: [...] Team Status: Inactive Member Role Status Dates Julain Arechiga MD Admit Provider, Atte nding Provider [...] or prosecute any alcohol or drug abuse patient.[facility] Hospital[facility] the event this information is protected by the Federal Confidentiality of Alcohol and Drug Abuse Patient Records regulations: The Federal rules restrict any use of the information to criminally investigate or prosecute any alcohol or drug abuse patient.[facility] HospitalIn the event this information is protected by the Federal Confidentiality of Alcohol and Drug Abuse Patient Records regulations: The Federal rules restrict any use of the information to criminally investigate or prosecute any alcohol or drug abuse patient.[facility] HospitalIn the event this information is protected by the Federal Confidentiality of Alcohol and Drug Abuse Patient Records regulations: The Federal rules restrict any use of the information to criminally investigate or prosecute any alcohol or drug abuse patient.[facility] HospitalIn the event this information is protected by the Federal Confidentiality of Alcohol and Drug Abuse Patient Records regulations: The Federal rules restrict any use of the information to criminally investigate or prosecute any alcohol or drug abuse patient.[facility] HospitalIn the event this information is protected by the Federal Confidentiality of Alcohol and Drug Abuse Patient Records regulations: The Federal rules restrict any use of the information to criminally investigate or prosecute any alcohol or drug abuse patient.[facility] HospitalIn the event this information is protected by the Federal Confidentiality of Alcohol and Drug Abuse Patient Records regulations: The Federal rules restrict any use of the information to criminally investigate or prosecute any alcohol or drug abuse patient.[facility] HospitalIn the event this information is protected by the Federal Confidentiality of Alcohol and Drug Abuse Patient Records regulations: The Federal rules restrict any use of the information to criminally investigate or prosecute any alcohol or drug abuse patient.[facility] HospitalIn the event this information is protected by the Federal Confidentiality of Alcohol and Drug Abuse Patient Records regulations: The Federal rules restrict any use of the information to criminally investigate or prosecute any alcohol or drug abuse patient.[facility] HospitalIn the event this information is protected by the Federal Confidentiality of Alcohol and Drug Abuse Patient Records regulations: The Federal rules restrict any use of the information to criminally investigate or prosecute any alcohol or drug abuse patient.[facility] HospitalIn the event this information is protected by the Federal Confidentiality of Alcohol and Drug Abuse Patient Records regulations: The Federal rules restrict any use of the information to criminally investigate or prosecute any alcohol or drug abuse patient.[facility] HospitalIn the event this information is protected by the Federal Confidentiality of Alcohol and Drug Abuse Patient Records regulations: The Federal rules restrict any use of the information to criminally investigate or prosecute any alcohol or drug abuse patient.[facility] HospitalIn the event this information is protected by the Federal Confidentiality of Alcohol and Drug Abuse Patient Records regulations: The Federal rules restrict any use of the information to criminally investigate or prosecute any alcohol or drug abuse patient.[facility] HospitalIn the event this information is protected by the Federal Confidentiality of Alcohol and Drug Abuse Patient Records regulations: The Federal rules restrict any use of the information to criminally investigate or prosecute any alcohol or drug abuse patient.[facility] HospitalIn the event this information is protected by the Federal Confidentiality of Alcohol and Drug Abuse Patient Records regulations: The Federal rules restrict any use of the information to criminally investigate or prosecute any alcohol or drug abuse patient.[facility] HospitalIn the event this information is protected by the Federal Confidentiality of Alcohol and Drug Abuse Patient Records regulations: The Federal rules restrict any use of the information to criminally investigate or prosecute any alcohol or drug abuse patient.[facility] HospitalIn the event this information is protected by the Federal Confidentiality of Alcohol and Drug Abuse Patient Records regulations: The Federal rules restrict any use of the information to criminally investigate or prosecute any alcohol or drug abuse patient.[facility] HospitalIn the event this information is protected by the Federal Confidentiality of Alcohol and Drug Abuse Patient Records regulations: The Federal rules restrict any use of the information to criminally investigate or prosecute any alcohol or drug abuse patient.[facility] HospitalIn the event this information is protected by the Federal Confidentiality of Alcohol and Drug Abuse Patient Records regulations: The Federal rules restrict any use of the information to criminally investigate or prosecute any alcohol or drug abuse patient.[facility] HospitalIn the event this information is protected by the Federal Confidentiality of Alcohol and Drug Abuse Patient Records regulations: The Federal rules restrict any use of the information to criminally investigate or prosecute any alcohol or drug abuse patient.[facility] HospitalIn the event this information is protected by the Federal Confidentiality of Alcohol and Drug Abuse Patient Records regulations: The Federal rules restrict any use of the information to criminally investigate or prosecute any alcohol or drug abuse patient.[facility] HospitalIn the event this information is protected by the Federal Confidentiality of Alcohol and Drug Abuse Patient Records regulations: The Federal rules restrict any use of the information to criminally investigate or prosecute any alcohol or drug abuse patient.[facility] Goals (unrecognized section and content) Goals [...] BE BASED ON THE PRIMARY CLINICAL RECORDS. [employer] [facility]. provides no warranty or guarantee of the accuracy or completeness of information in this document.
--- NOTE | 2024-02-07 11:38 | XR_ITS ---
The [address] [address] Patient Name: MAEGAN DYE MRN: [id number] date: 1950 Sex: F Assigned Patient Location: ER Current Patient Location: ED.[facility] Accession/Order Number: [id number] Exam Date: 02/07/2024 12:10 Report Date: 02/07/2024 13:02 At the request of: JAMES SILVERMAN Procedure: XR chest 1V EXAM: XR chest 1V HISTORY: Weakness; technologist notes state increased confusion and flulike symptoms. COMPARISON: None. TECHNIQUE: AP erect portable chest radiograph performed. FINDINGS: The patient is rotated to the left. The trachea is unremarkable. The heart size is within normal limits. There is an opacity within the retrocardiac left lung base which may be secondary to a hiatal hernia. There is no consolidation, pleural effusion or pulmonary vascular congestion. There is no pneumothorax. The bony structures are osteopenic. There is mild dextroscoliosis of the thoracic spine. There are old healed right rib fractures. There are degenerative changes at the right glenohumeral articulation and narrowing of the right acromiohumeral interval suggesting rotator cuff degeneration and/or tearing. XR/XR chest 1V IMPRESSION: There is an opacity within the retrocardiac left lung base which may be secondary to a hiatal hernia. There is no consolidation, pleural effusion or pulmonary vascular congestion. Electronically authenticated by: ELIZABETH STOLL Date: 02/07/2024 13:02
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
[2024-02-07 12:04] LABS: Basophils Percent Auto 0.1 % (0.2-2.0); Eosinophils Absolute Auto 0.1 10^3/uL (0.0-0.7); Hematocrit 41.3 % (36.0-48.0); Hemoglobin 12.9 g/dL (12.0-16.0); Immature Granulocytes Abs Auto 0.03 10^3/uL (0.00-0.03); Immature Granulocytes Pct Auto 0.4 % (0.0-0.5); Lymphocytes Absolute Auto 1.3 10^3/uL (1.2-3.8); Lymphocytes Percent Auto 19.1 % (20.5-60.0); Mean Corpuscular HGB Conc 31.2 g/dL (29.9-35.2); Mean Corpuscular Hemoglobin 29.4 pg (26.7-34.0); Mean Corpuscular Volume 94.1 fL (81.0-99.0); Mean Platelet Volume 9.1 fL (9.5-13.5); Monocytes Absolute Auto 0.6 10^3/uL (0.3-0.8); Monocytes Percent Auto 8.7 % (1.7-12.0); Neutrophils Absolute Auto 4.8 10^3/uL (1.4-6.5); Neutrophils Percent Auto 69.7 % (43.0-75.0); PCO2 VBG 55.3 mmHg (40.0-52.0); Platelet Count 263 10^3/uL (150-450); Red Blood Count 4.39 10^6/uL (4.20-5.40); Red Cell Distribution Width 11.9 % (11.0-15.0); White Blood Count 6.9 10^3/uL (4.0-11.0)
[2024-02-07 12:07] LABS: Bilirubin Urine NEGATIVE (NEGATIVE); Blood Urine NEGATIVE (NEGATIVE); Clarity Urine CLEAR (CLEAR); Color Urine LT. YELLOW (YELLOW); Glucose Urine UA NEGATIVE (NEGATIVE); Ketones Urine NEGATIVE (NEGATIVE); Leukocyte Esterase Urine NEGATIVE (NEGATIVE); Nitrite Urine NEGATIVE (NEGATIVE); Protein Urine NEGATIVE (NEG/TRACE); Urobilinogen Urine 0.2 EU/dL (0.2-1.0)
[2024-02-07 12:09] LABS: Urine Microscopic Indicated NO
[2024-02-07 12:19] LABS: Alanine Aminotransferase 18 U/L (14-59); Albumin Globulin Ratio 1.1; Albumin Level 3.8 g/dL (3.4-5.0); Alkaline Phosphatase 135 U/L (46-116); Anion Gap 9.7; Aspartate Amino Transferase 24 U/L (15-37); BUN Creatinine Ratio 9.2; Bilirubin Total 0.6 mg/dL (0.2-1.0); Calcium 9.5 mg/dL (8.5-10.1); Carbon Dioxide 32.7 mmol/L (21.0-32.0); Chloride 97 mmol/L (98-107); Estimated GFR (African America 59 (>=60); Estimated GFR (Non-African Ame 49 (>=60); Globulin 3.6 g/dL; Glucose 113 mg/dL (74-106); Potassium 4.4 mmol/L (3.5-5.1); Sodium 135 mmol/L (136-145); Total Protein 7.4 g/dL (6.4-8.2)
[2024-02-07 12:21] LABS: Lactate/Lactic Acid 0.6 mmol/L (0.4-2.0)
[2024-02-07 13:13] VITALS: BP 136/79; PULSE 81; O2SAT 99
[2024-02-07 13:41] VITALS: PULSE 74; O2SAT 97
== END 2024-02-07 13:43 | disposition home or self-care (01) ==
PROVIDERS: Emergency Provider Emergency Medicine Emergency Medical Services; PCP Nurse Practitioner Family
DX: F91.9 Conduct disorder, unspecified (principal); F17.200 Nicotine dependence, unspecified, uncomplicated
CPT/HCPCS: 36415; 71045; 80053; 81003; 82800; 83605; 85025; 87040; 99284

== ENCOUNTER 2024-07-30 21:38 | Emergency (ER) | payer MEDICARE, MEDICAID, SELFPAY ==
[2024-07-30 21:55] VITALS: BP 124/63; PULSE 64; TEMP 36.6; O2SAT 91; BMI 23.2
--- OUTSIDE RECORDS SUMMARY | 2024-07-30 21:56 | XMS_ITS | CCD ---
Author Organization [facility] ion Partnership [facility] Care Team Providers Care Shrimp Header Name Role Phone JESIKAJAMES Unavailable Unavailable SELF, REFERRED Unavailable Unavailable STORMY MCDONOUGH Unavailable Unavailable TOMAS GARCIA Unavailable Unavailable Tomas Garcia Primary Care Provider Tomas Garcia DO Primary Care Provider Tomas Garcia DO Primary Care Provider Tomas GARCIA Primary Care Physician Cady Montoya Unavailable Unavailable Zahira Flores Unavailable Unavailable Alka Tony Unavailable Unavailable Tomas Garcia DO Primary Care Provider DO Tomas Garcia Primary Care Provider DO Maciej Rodriguez Emergency Provider [phone] ALEX Arreaga- Jennifer Mcclain Emergency Provider CARSON Moss Emergency Provider [phone] MD Jaxon Buchanan Jr Emergency Provider DO King Carvajal Emergency Provider DO Albino Ballard Emergency Provider [phone] Tomas Garcia DO Primary Care Provider Erica Freeman Unavailable Unavailable Jose Tomas GO Primary Care Provider Emilia Barrera Unavailable Unavailable Jose GO, Tomas Guerrier Primary Care Provider AlessioNoran Unavailable Jose DO, Tomas Guerrier Primary Care Provider Jose DO, Tomas Guerrier Primary Care Provider AlessioNoran Unavailable Jose, DO Tomas Guerrier Primary Care Provider MD Merary De Admit Provider MD Merary De Attending Provider [phone] JONAH Gomez Other Provider FARHANA Toro Other Provider MD Clark Hernandez Other Provider MD Jaxon Arzola Other Provider TOMAS GARCIA Primary Care Unavailable GEHLOT, UPENDER Attending Unavailable TOMAS AGRCIA Primary Care Unavailable GEHLOT, UPENDER Attending Unavailable GEHLOT, UPENDER Attending Unavailable TOMAS GARCIA Primary Care Unavailable TOMAS GARCIA Primary Care Unavailable GEHLOT, UPENDER Attending Unavailable Clark Hernandez Unavailable URIEL ., LULA ARMANDO Consulting Unavailabl e JOSE, DR TOMAS Guerrier Primary Care Unavailable GRIFFIN ., DR ROSAS Attending Unavailable GRIFFIN ., DR ROSAS Admitting Unavailable JOSE, DR TOMAS Guerrier Primary Care Unavailable [place], DR JOSE Edouard Consulting Unavailable HIGHLANDERELIZABETH Admitting Unavailable HIGHLANDER, ELIZABETH Griffin Attending Unavailable HIGHLELIZABETH BOWMAN Consulting Unavailable MISC, DR MACDONALD Admitting Unavailable MISC, DR MACDONALD Attending Unavailable MISC, DR MACDONALD Consulting Unavailable MISC, DR MACDONALD Primary Care Unavailable MISC, DR MACDONALD Primary Care Unavailable YAAKOV HERZOG Admitting Unavailable YAAKOV HERZOG Attending Unavailable GRECHNY ., LULA ARMANDO Consulting Unavailabl e YAAKOV HERZOG Consulting Unavailable PAY ., DR GUZMÁN Admitting Unavailable MISC, DR MACDONALD Primary Care Unavailable PAY ., DR GUZMÁN Attending Unavailable PAY ., DR GUZMÁN Consulting Unavailable GRECHNY ., LULA ARMANDO Consulting Unavailabl e [facility], DR MACDONALD Primary Care Unavailable YAAKOV HERZOG Admitting Unavailable YAAKOV HERZOG Attending Unavailable JORGE WOODS Consulting Unavailable JOSE, DR TOMAS Guerrier Primary Care Unavailable GRIFFIN ., DR ROSAS Admitting Unavailable GRIFFIN ., DR ROSAS Attending Unavailable HAY ., DR ROSAS Consulting Unavailable JOSE, DR TOMAS Guerrier Primary Care Unavailable YAAKOV HERZOG Admitting Unavailable YAAKOV HERZOG Attending Unavailable Tomas GARCIA Primary Care Physician [phone] NONE, XXXX Primary Care Physician Unavailab Dolly Neff Unavailable Dolly Valenzuela Primary Care Physician [phone] Tomas Garcia DO Primary Care Provider Kwabena RAMOS, [facility] Provider [phone] TOMAS GARCIA Primary Care Unavailable FRANTZ SANTANA Attending Unavailable TOMAS GARCIA Primary Care Unavailable TOMAS GARCIA Primary Care Unavailable QUYNH RAINES Attending Unavailable FRANTZ SANTANA Referring Unavailable [facility] Primary Care Unavailable MONSE ALCOCER Referring Unavailable [facility] Primary Care Unavailable ISAI ALFONSO Referring Unavailable SVITLANA Ortiz Emergency Provider [phone] Dolly Valenzuela Primary Care Provider AZUL GORMAN Primary Care Physician [phone] SVITLANA Ortiz Emergency Provider Dolly Valenzuela Primary Care Provider [phone] [facility], [facility] Primary Care Provider CARSON Torres Emergency Provider [phone] MD Julian Arechiga Admit Provider [phone] MD Julian Arechiga Attending Provider NO FAMILY, PHYSICIAN Primary Care Provider Unava ilable DO Maciej Rodriguez Emergency Provider AZUL GORMAN Primary Care Unavailable Gala Black Attending Unavailable Gala Black Referring Unavailable AZUL GORMAN Primary Care Unavailable SLINGWINE, JAMILAH L. Admitting Unavailable SLINGWINE, JAMILAH L. Attending Unavailable VITA, AZUL Primary Care Unavailable VITA, AZUL Attending Unavailable VITA, AZUL Admitting Unavailable Jamaica Rebolledoe V Unavailable Unavailable Bordner, Amarilis C Attending Unavailable Bordner, Amarilis C Admitting Unavailable VITA, AZUL Primary Care Unavailable VITA, AZUL Primary Care Unavailable SLINGWINE, JAMILAH L. Attending Unavailable SLINGW[place], JAMILAH LKaran Admitting Unavailable Pocos, Jose Staton Admitting Unavailable Pocos, Jose Staton Attending Unavailable VTIA, AZUL Primary Care Unavailable DO CECI REYES Attending Unavailable AMY, DO ORNELAS Admitting Unavailable VITA, AZUL Primary Care Unavailable DO Mati Taylor Attending Unavailable VITA, AZUL Primary Care Unavailable VITA, AZUL Primary Care Unavailable Didier Hooks Attending Unavailable Pocos, Jose Staton Attending Unavailable Pocos, Jose Staton Admitting Unavailable VITA, AZUL Primary Care Unavailable NON STAFF Primary Care Provider UnavailCARSON Boyd Emergency Provider Unallocated MD, Noms Provider Primary Care Provi lillie Vita RAMOS, Azul Unavailable POCOS, JOSE Staton Attending Unavailable POCOS, JOSE Staton Referring Unavailable POCOS, JOSE Staton Attending Unavailable POCOS, JOSE Staton Referring Unavailable POCOS, JOSE Staton Attending Unavailable POCOS, JOSE Staton Referring Unavailable POCOS, JOSE Staton Attending Unavailable POCOS, JOSE Staton Referring Unavailable POCOS, JOSE Staton Referring Unavailable POCOS, JOSE Staton Attending Unavailable POCOS, JOSE Staton Referring Unavailable Vita CLINICAL DATA MANAGEMENT MANAGER, Azul Unavailable [phone] DO Tomas Garcia Primary Care Provider MD Rogelio De Attending Provider NON STAFF Primary Care Provider UnavailCARSON Boyd Emergency Provider DO Janice Raymond Attending Provider NO FAMILY, PHYSICIAN Primary Care Unavailable Julian Arechiga Admitting Unavailable Hawk, Julian Attending Unavailable Dolly Valenzuela Primary Care Unavailable Bebe Ortiz Admitting Unavailable Bebe Ortiz Attending Unavailable Senthil Torres Admitting Unavailable Senthil Torres Attending Unavailable [facility], [facility] Primary Care Unavaila ble NO FAMILY, PHYSICIAN Primary Care Unavailable Janice Raymond Admitting UnavailJanice Patel Attending Unavailabl e Radha - S, Robinson Staton Attending UnaNeida Malhotra Referring Unavailable Radha - Chey, Robinson Staton Admitting Unava Maciej Pinto Admitting Unavailable Maciej Rodriguez Attending Unavailable Dolly Valenzuela Primary Care Unavailable Tomas Garcia Primary Care Unavailable Rogelio De Admitting Unavailab Rogelio Brower Attending Unavailab Senthil Donaldson Admitting Unavailable Senthil Torres Attending Unavailable NON STAFF Primary Care Unavailable Unallocated , Patels Provider Primary Care Provi lillie [facility], [facility] Primary Care Physician Unavailab geovanni GORMAN, AZUL Primary Care Unavailable Adrian Kinsey Attending Unavailable Adrian Kinsey Admitting Unavailable OLINETTE, Mbanefo Attending Unavailable Buddy Tirado Admitting Unavailable VITA, AZUL Primary Care Unavailable VITA, AZUL Primary Care Unavailable Hajdari, Astrit H Attending Unavailable VITA, AZUL Primary Care Unavailable Hajdari, Astrit H Attending Unavailable VITA, AZUL Primary Care Unavailable Hajdari, Astrit H Attending Unavailable VITA, AZUL Primary Care Unavailable Carlos Coates Attending Unavailable VITA, AZUL Primary Care Unavailable Johny Willson Attending Unavailable Chandan Adhikari Attending Unavailable VITA, AZUL Primary Care Unavailable VITA, AZUL Primary Care Unavailable Johny Willson Attending Unavailable Hajdari, Astrit H Attending Unavailable VITA, AZUL Primary Care Unavailable Mati Taylor Attending Unavailable VITA, AZUL Primary Care Unavailable VITA, AZUL Primary Care Unavailable Hajdari, Astrit H Attending Unavailable VITA, AZUL Primary Care Unavailable Mati Taylor Attending Unavailable Chandan Adhikari Attending Unavailable VITA, AZUL Primary Care Unavailable VITA, AZUL Primary Care Unavailable Hajdari, Astrit H Attending Unavailable Carlos Coaets Attending Unavailable VITA, AZUL Primary Care Unavailable VITA, AZUL Primary Care Unavailable Adrian Kinsey Attending Unavailable VITA, AZUL Primary Care Unavailable Hajdari, Astrit H Attending Unavailable Chandan Adhikari Attending Unavailable VITA, AZUL Primary Care Unavailable VITA, AZUL Primary Care Unavailable Hajdari, Astrit H Attending Unavailable VITA, AZUL Primary Care Unavailable Johny Willson Attending Unavailable VITA, AZUL Primary Care Unavailable Hajdari, Astrit H Attending Unavailable VITA, AZUL Primary Care Unavailable Hajdari, Astrit H Attending Unavailable Chandan Adhikari Attending Unavailable VITA, AZUL Primary Care Unavailable VITA, AZUL Primary Care Unavailable Hajdari, Astrit H Attending Unavailable VITA, AZUL Primary Care Unavailable Hajdari, Astrit H Attending Unavailable Johny Willson Attending Unavailable VITA, AZUL Primary Care Unavailable VITA, AZUL Primary Care Unavailable VITA, AZUL Primary Care Unavailable Luz Elena Gunn Attending Unavailable Adrian Kinsey Referring Unavailable VITA, AZUL Primary Care Unavailable Hajdari, Astrit H Attending Unavailable Santiago Harrington Attending Unavailable DO Mati Taylor Attending Unavailable Johny Willson Attending Unavailable VITA, AZUL Primary Care Unavailable VITA, AZUL Primary Care Unavailable Amarilis Gold Attending Unavailable Johny Willson Attending Unavailable VITA, AZUL Primary Care Unavailable DO Mati Taylor Attending Unavailable Black, Basem GKaran Attending Unavailable VITA, AZUL Primary Care Unavailable VITA, AZUL Primary Care Unavailable Black, Basem G. Attending Unavailable VITA, AZUL Referring Unavailable Black, Basem G. Referring Unavailable VITA, AZUL Primary Care Unavailable Black, Basem G. Attending Unavailable VITA, AZUL Admitting Unavailable VITA, AZUL Primary Care Unavailable VITA, AZUL Attending Unavailable VITA, AZUL Admitting Unavailable VITA, AZUL Primary Care Unavailable VITA, AZUL Attending Unavailable VITA, AZUL Primary Care Unavailable Ana Gandhi Admitting Unavailable GUMARO WELLINGTON Attending Unavailable Johny Willson Attending Unavailable VITA, AZUL Primary Care Unavailable Neva Astrphyllis H Attending Unavailable Johny Willson Attending Unavailable VITA, AZUL Primary Care Unavailable VITA, AZUL Primary Care Unavailable Chandan Adhikari Attending Unavailable Elidia Chavez Attending Unavailable VITA, AZUL Primary Care Unavailable Kye Nicole [facility] Hajdari, Astrit H Attending Unavailable VITA, AZUL Primary Care Unavailable Hajdari, Astrit H Attending Unavailable VITA, AZUL Primary Care Unavailable Chandan Adhikari Attending Unavailable VITA, AZUL Primary Care Unavailable Allergies Allergy Classification Reported Allergen(s) Allergy Type Date of Onset Reaction(s) Facility Acetaminophen / HYDROcodone (2 sources) Acetaminophen / HYDROcodone Drug Allergy 04-03-20 15 [facility] Anti-Epileptic Agents (2 sources) gabapentin Drug Allergy 05-01-20 20 Unknown [facility] Bacitracin (2 sources) Bacitracin Drug Allergy 09-28-19 18 Swelling, Unknown [facility] Butorphanol (2 sources) Butorphanol Drug Allergy 05-01-20 20 [facility] Haloperidol (2 sources) Haloperidol Drug Allergy 08-30-19 11 Shortness Of Breath [facility] Methylphenidate (2 sources) Methylphenidate Drug Allergy 05-01-20 20 Unknown [facility] Mirtazapine (2 sources) Mirtazapine Drug Allergy 05-01-20 20 Unknown [facility] Opioid Agonists (4 sources) fentaNYL Drug Allergy 09-17-19 15 Swelling [facility] Penicillins (antibiotic) (2 sources) Phenothiazine Drug Allergy 08-28-19 11 Shortness Of Breath [facility] Pentoxifylline (2 sources) Pentoxifylline Drug Allergy 08-17-19 20 [facility] Prochlorperazine (2 sources) Prochlorperazine Drug Allergy 04-03-20 15 [facility] QUEtiapine (2 sources) QUEtiapine Drug Allergy 05-01-20 20 Unknown [facility] risperiDONE (2 sources) risperiDONE Drug Allergy 05-01-20 20 Unknown [facility] Shellfish (2 sources) Shellfish Food Allergy 09-28-19 18 [facility] Valproate (2 sources) Valproate Drug Allergy 05-01-20 20 [facility] (10 sources) bacitracin; Translations: [BACITRACIN] Drug Allergy 09-28-19 18 [facility] Repository (1 source) bacitracin / neomycin / polymyxin b Drug Allergy 09-28-19 [facility] Repository (8 sources) butorphanol; Translations: [Stadol] Drug Allergy 09-28-19 18 [facility] Repository (10 sources) methadone; Translations: [METHADONE] Drug Allergy 09-17-19 15 [facility] Repository (19 sources) Phenothiazine; Translations: [PHENOTHIAZINES] Drug allergy (disorder) 08-28-19 11 Shortness Of Breath [facility] Repository (9 sources) prochlorperazine Drug Allergy 09-28-19 [facility], Unknown Reaction [facility] Repository (20 sources) Shellfish; Translations: [SHELLFISH DERIVED] Drug allergy (disorder) 09-28-19 Other: See Comments [facility] Repository (1 source) pulse ox probe/tape; Translations: [pulse ox probe/tape] Propensity to adverse reactions (disorder) 09-29-19 [facility] Repository (20 sources) Acetaminophen / HYDROcodone; Translations: [HYDROCODONE-ACETAM INOPHEN] Drug Allergy 04-03-20 Other: See Comments [facility] (20 sources) Bacitracin; Translations: [bacitracin] Drug Allergy 09-28-19 Swelling, Unknown [facility] (20 sources) Butorphanol; Translations: [butorphanol] Drug Allergy 05-01-20 delusions [facility] (20 sources) fentaNYL; Translations: [FENTANYL] Drug Allergy 11-11-19 Other: See Comments [facility] Comment on above: 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 patient is in cath l ab 03/23/13 and stated to JUAN MIGUEL Martinez that she does not have fentanyl allergy asked that I removed allergy. Michelle to document conversation in progress note. [facility] (20 sources) gabapentin; Translations: [gabapentin] Drug Allergy 05-01-20 Unknown, Unknown (qualifier value) [facility] (20 sources) Haloperidol; Translations: [haloperidol] Drug Allergy 08-30-19 11 Shortness Of Breath, Unknown [facility] (20 sources) Methadone; Translations: [methadone] Drug Allergy 09-17-19 15 Swelling [facility] (20 sources) Methylphenidate; Translations: [methylphenidate] Drug Allergy 05-01-20 20 Unknown, Unknown (qualifier value) [facility] (20 sources) Mirtazapine; Translations: [mirtazapine] Drug Allergy 05-01-20 20 Unknown, Unknown (qualifier value) [facility] (16 sources) Pentoxifylline; Translations: [PENTOXIFYLLINE] Drug Allergy 08-17-19 20 [facility] (20 sources) Prochlorperazine; Translations: [PROCHLORPERAZINE EDISYLATE] Drug Allergy 08-28-19 11 Unknown [facility] (20 sources) QUEtiapine; Translations: [quetiapine] Drug Allergy 05-01-20 20 Unknown, Unknown (qualifier value) [facility] (20 sources) risperiDONE; Translations: [risperidone] Drug Allergy 05-01-20 20 Unknown, Unknown (qualifier value) [facility] (16 sources) Valproate; Translations: [DIVALPROEX SODIUM] Drug Allergy 05-01-20 20 [facility] (11 sources) Phenothiazine Propensity to adverse reactions to drug 08-28-19 11 Shortness Of Breath [facility] (20 sources) Prochlorperazine; Translations: [prochlorperazine] Drug Allergy anaphylaxis [facility] (20 sources) Shellfish; Translations: [shellfish] Food allergy [facility] (20 sources) Valproate; Translations: [divalproex sodium] Drug Allergy unsteady [facility] Comment on above: causes her to be uns teady causes her to be uns teady (20 sources) Adhesive Tape; Translations: [ADHESIVE TAPE (ROSINS)] Allergy to substance 08-30-19 11 Rash [facility] (20 sources) Haloperidol; Translations: [HALOPERIDOL LACTATE] Drug Allergy 08-30-19 11 Shortness of Breath [facility] (20 sources) oxyCODONE; Translations: [oxycodone] Drug Allergy 10-05-[address] [facility] (20 sources) Thiothixene; Translations: [thiothixene] Drug Allergy 10-05-[address] [facility] (20 sources) Cephalexin; Translations: [CEPHALEXIN] Drug Allergy 12-05-19 22 Anaphylaxis [facility] Work Phone: (20 sources) Phenothiazine Drug Allergy 08-28-19 11 Shortness of Breath [facility] (1 source) acetophenazine Drug Allergy 04-10-20 22 [facility] Repository (1 source) Cephalexin Drug Allergy [facility] Repository (2 sources) Prochlorperazine Drug Allergy [facility] Repository (7 sources) Bacitracin / Neomycin / Polymyxin B; Translations: [Neosporin] Drug Allergy [facility] Repository (7 sources) gabapentin; Translations: [Neurontin] Drug Allergy [facility] Repository (7 sources) Haloperidol; Translations: [Haldol] Drug Allergy [facility] Repository (7 sources) Methylphenidate; Translations: [Ritalin] Drug Allergy [facility] Repository (7 sources) Mirtazapine; Translations: [Remeron] Drug Allergy [facility] Repository (7 sources) Naloxone; Translations: [Narcan] Drug Allergy [facility] Repository (7 sources) QUEtiapine; Translations: [SEROquel] Drug Allergy [facility] Repository (7 sources) risperiDONE; Translations: [RisperDAL] Drug Allergy [facility] Repository (7 sources) Valproate; Translations: [Depakote] Drug Allergy [facility] Repository (11 sources) Aminoglycosides (Antibiotic) Drug Allergy 01-12-20 24 [facility] (11 sources) Mirtazapine Drug Allergy 10-10-19 23 Unknown [facility] (11 sources) Pentoxifylline Drug Allergy 08-17-19 20 [facility] (11 sources) Phenothiazine Drug Allergy 08-28-19 11 Anaphylaxis, Shortness of breath [facility] (11 sources) Polymyxin B Drug Allergy 01-12-20 24 [facility] (11 sources) risperiDONE Drug Allergy 10-10-19 23 Unknown [facility] (11 sources) Valproate Drug Allergy 10-10-19 23 Unknown [facility] (11 sources) Shellfish-Derived Products Drug Allergy 10-10-19 23 Unknown [facility] (1 source) fentaNYL Drug Allergy 02-11-[address] [facility] Repository (1 source) Phenothiazine Drug allergy (disorder) 02-11-[address] [facility] Repository (1 source) Prochlorperazine Drug Allergy 02-11-[address] [facility] Repository Medications Current Medications Medication Drug [...] needed 0 Active acetaminophen 325 mg / HYDROcodone bitartrate 5 mg oral tablet (20 sources) Opioid Agonist Start: 04-14-2024 Rock 325 mg-5 mg oral tablet 1 tab(s), Oral, q6hr for pain, 4 tab(s), Refill(s) 0, [facility]/pharmacy #[id number], 154, cm, 04/14/24 18:05:00 EST, Height/Length Dosing, 66.1, kg, 04/14/24 18:05:00 EST, Weight Dosing Start Date: 04/14/24 Status: Ordered Start: 02-02-2024 End: 02-09-2024 take 1 tablet by mouth every six hours for pain, then take 2 tablets by mouth every six hours for pain HYDROcodone-acetaminophen (Rock) 5-325 MG tablet Indications: Other closed intra-articular fracture of distal end of left radius with routine healing, subsequent encounter May take 1 tablet by mouth every 6 (six) hours if needed for severe pain. May also take 2 tablets every 6 (six) hours if needed for severe pain. Do all this for 7 days. 30 tablet 02/02/2024 02/09/2024 Active Start: 01-21-2024 End: 01-28-2024 take 1 tablet by mouth every six hours for pain, then take 2 tablets by mouth every six hours for pain HYDROcodone-acetaminophen (Rock) 5-325 MG tablet Indications: Other closed intra-articular fracture of distal end of left radius with routine healing, subsequent encounter May take 1 tablet by mouth every 6 (six) hours if needed for severe pain. May also take 2 tablets every 6 (six) hours if needed for severe pain. Do all this for 7 days. 30 tablet 01/21/2024 01/28/2024 Active Start: 08-08-2021 End: 05-25-2022 take 1 tablet by mouth every six hours Hydrocodone-Acetaminophen Discontinued 1 TAB PO Q6H 10 August 08, 2021 May 25, 2022 8:42pm acetaminophen 325 mg / oxyCODONE hydrochloride 5 mg oral tablet (20 sources) Opioid Agonist Start: 07-28-2024 End: 07-31-2024 acetaminophen-oxycodone 325 mg-5 mg Tab 1 tab(s), Oral, q6hr for pain for 3 day(s), 12 tab(s), Refill(s) 0, [id number], 154, cm, 07/28/24 11:09:00 EST, Height/Length Dosing, 58.1, kg, 07/28/24 11:09:00 EST, Weight Dosing Start Date: 07/28/24 Stop Date: 07/31/24 Status: Ordered Start: 07-24-2024 End: 07-27-2024 Percocet 5 mg-325 mg oral ta blet 1 tab(s), Oral, q6hr as needed for pain for 3 day(s), 12 tab(s), Refill(s) 0, [facility]/pharmacy #[id number], 154, cm, 07/24/24 8:55:00 EST, Height/Length Dosing, 58.1, kg, 07/24/24 8:55:00 EST, Weight Dosing Start Date: 07/24/24 Stop Date: 07/27/24 Status: Ordered Start: 01-10-2024 End: 01-13-2024 Percocet 5 mg-325 mg oral ta blet 1 tab(s), Oral, q6hr for 3 day(s), 12 tab(s), Refill(s) 0, [id number], 162, cm, 01/10/24 20:56:00 EDT, Height/Length Dosing, 61, kg, 01/10/24 20:56:00 EDT, Weight Dosing Start Date: 01/10/24 Stop Date: 01/13/24 Status: Ordered Start: 01-10-2024 End: 01-13-2024 Percocet 5-325 MG tablet Oral e by mouth 01/10/2024 01/13/2024 Start: 03-24-2015 take 1 tablet by cachorro th every four hours as needed oxyCODONE-acetaminophen (PERCOCET) 5-325 mg per tablet Take 1 tablet by mouth every 4 to 6 hours as needed 0 03/24/2015 Active [id number] 200 actuat albuterol 0.09 mg/actuat metered dose [...] mL, Inhalation, QID, 360 mL, Refill(s) 1, [facility]/pharmacy #[id number], 180.3, cm, 03/20/21 9:01:00 EDT, Height/Length Dosing, 65.6, kg, 03/20/21 8:59:00 EDT, Weight Dosing Start Date: 05/02/21 Status: Ordered albuterol HFA 90 mcg/inh MDI (20 sources) Start: 08-13-2020 take 2 puff(s) by inhalation four times daily for wheezing albuterol HFA 90 mcg/inh MDI 2 puff(s), Inhalation, QID for wheezing, 6.7 gram, Refill(s) 0, [facility]/pharmacy #[id number], 180.3, cm, 08/11/20 1:10:00 EDT, Height/Length Dosing, 66, kg, 08/11/20 1:10:00 EDT, Weight Dosing Start Date: 08/13/20 Status: Ordered amoxicillin 500 mg oral capsule (3 sources) Penicillin-class Antibacterial Start: 04-11-2024 End: 04-18-2024 take 1 capsule by mouth three times daily amoxicillin 500 mg Cap 500 mg = 1 cap(s), Oral, TID, X 7 day(s), # 21 cap(s), Refills(s) 0, Pharmacy: [facility]/pharmacy #[id number], 154, cm, 04/11/24 12:51:00 EST, Height/Length Dosing, 66.1, kg, 04/11/24 12:51:00 EST, Weight Dosing Start Date: 04/11/24 Stop Date: 04/18/24 Status: Ordered amoxicillin 875 mg / clavulanate 125 mg oral tablet (2 sources) Penicillin-class Antibacterial Start: 03-16-2024 End: 03-22-2024 amoxicillin-clavu lanate 875 mg-125 mg Tab 1 tab(s), Oral, BID for 6 day(s), 12 tab(s), Refill(s) 0, [facility]/pharmacy #[id number], 154, cm, 03/14/24 5:05:00 EDT, Height/Length Dosing, 64.9, kg, 03/14/24 13:28:00 EDT, Weight Dosing Start Date: 03/16/24 Stop Date: 03/22/24 Status: Ordered apixaban 5 mg oral tablet (20 sources) Factor Xa Inhibitor Start: 03-14-2015 End: 01-12-2024 take 1 tablet by mouth once daily ELIQUIS 5 mg Tab Take 5 mg by mouth daily 0 03/14/2015 Active Comment on above: Take by mouth once d aily. busPIRone hydrochloride 15 mg oral tablet (1 source) Start: 01-18-2014 take 1 tablet by mouth twice daily BuSpar 15 MG tablet Orally Twice times a day for 30 Dec, Active celecoxib 200 mg oral capsule (20 sources) Nonsteroidal Anti-inflammatory Drug Start: 03-18-2015 End: 06-11-2022 take 1 capsule by mouth once daily celecoxib 200 mg Cap TAKE 1 CAPSULE BY MOUTH EVERY DAY Start Date: 05/24/22 Status: Ordered Comment on above: Take 200 mg by mouth once daily. Centrum Silver oral tablet (20 sources) Start: 03-12-2021 take 1 tablet by mouth once daily Centrum Silver oral tablet 1 tab(s), Oral, Daily Start Date: 03/12/21 Status: Ordered cephalexin 500 mg oral capsule (20 sources) Cephalosporin Antibacterial Start: 06-17-2024 End: 06-24-2024 take 1 capsule by mouth every eight hours Keflex 500 mg Cap 500 mg = 1 cap(s), Oral, q8hr, X 7 day(s), # 21 cap(s), Refills(s) 0, Pharmacy: [facility]/pharmacy #[id number], 154, cm, 06/17/24 14:08:00 EST, Height/Length Dosing, 63, kg, 06/17/24 14:08:00 EST, Weight Dosing Start Date: 06/17/24 Stop Date: 06/24/24 Status: Ordered Start: 05-03-2024 End: 05-08-2024 take 1 capsule by mouth every twelve hours cephalexin 500 mg Cap 500 mg = 1 cap(s), Oral, q12hr, X 5 day(s), # 10 cap(s), Refills(s) 0, Pharmacy: [facility]/pharmacy #[id number], 154, cm, 05/03/24 20:53:00 EST, Height/Length Dosing, 63.8, kg, 05/03/24 20:53:00 EST, Weight Dosing Start Date: 05/03/24 Stop Date: 05/08/24 Status: Ordered Start: 04-23-2024 End: 04-28-2024 take 1 capsule by mouth every twelve hours Keflex 500 mg Cap 500 mg = 1 cap(s), Oral, q12hr, X 5 day(s), # 10 cap(s), Refills(s) 0, Pharmacy: [facility]/pharmacy #[id number], 154, cm, 04/21/24 13:16:00 EST, Height/Length Dosing, 66, kg, 04/21/24 13:16:00 EST, Weight Dosing Start Date: 04/23/24 Stop Date: 04/28/24 Status: Ordered Start: 02-18-2024 take 1 capsule by mo uth every twelve hours cephalexin (Keflex) 500 MG capsule TAKE 1 CAPSULE BY MOUTH EVERY 12 HOURS FOR 5 DAYS 02/18/2024 Active Start: 02-06-2024 End: 02-11-2024 take 1 capsule by mouth every twelve hours Keflex 500 mg Cap 500 mg = 1 cap(s), Oral, q12hr, X 5 day(s), # 10 cap(s), Refills(s) 0, Pharmacy: [facility]/pharmacy #[id number], 162, cm, 02/06/24 7:46:00 EDT, Height/Length Dosing, 61, kg, 02/06/24 7:46:00 EDT, Weight Dosing Start Date: 02/06/24 Stop Date: 02/11/24 Status: Ordered Start: 08-10-2023 End: 08-17-2023 take 1 capsule by mouth every twelve hours Keflex 500 mg Cap 500 mg = 1 cap(s), Oral, q12hr, X 7 day(s), # 14 cap(s), Refills(s) 0, Pharmacy: [facility]/pharmacy #[id number], 155, cm, 08/09/23 23:21:00 EDT, Height/Length Dosing, 67.6, kg, 08/09/23 23:21:00 EDT, Weight Dosing Start Date: 08/10/23 Stop Date: 08/17/23 Status: Ordered Start: 07-05-2023 End: 08-22-2023 take 500 mg by mouth three times daily Cephalexin Discontinued 500 MG PO Three times daily 24 03July 05, 2023 12:00am August 22, 2023 12:35pm Start: 03-04-2022 End: 03-09-2022 take 1 capsule by mouth every twelve hours cephalexin 500 mg Cap 500 mg = 1 cap(s), Oral, q12hr, X 5 day(s), # 10 cap(s), Refills(s) 0, Pharmacy: [facility]/pharmacy #[id number], 154, cm, 03/04/22 13:21:00 EDT, Height/Length Dosing, 57, kg, 03/04/22 13:21:00 EDT, Weight Dosing Start Date: 03/04/22 Stop Date: 03/09/22 Status: Ordered Start: 11-17-2021 take 1 capsule by mo [facility] every twelve hours Keflex 500 mg Cap 500 mg = 1 cap(s), Oral, q12hr, # 20 cap(s), Refills(s) 0, Pharmacy: [facility]/pharmacy #[id number], 157, cm, 11/16/21 15:24:00 EDT, [...] Start: 07-15-2021 take 1 capsule by [facility] every twelve hours cephalexin 500 mg Cap 500 mg = 1 cap(s), Oral, q12hr, # 14 cap(s), Refills(s) 0, Pharmacy: [facility] #[id number], 155, cm, 07/15/21 13:55:00 EST, Height/Length Dosing, 67, kg, 07/15/21 13:55:00 EST, Weight Dosing Start Date: 07/15/21 Status: Ordered ciprofloxacin 500 mg oral tablet (20 sources) Quinolone Antimicrobial Start: 07-06-2024 End: 07-13-2024 take 1 tablet by mouth every twelve hours Cipro 500 mg Tab 500 mg = 1 tab(s), Oral, q12hr, X 7 day(s), # 14 tab(s), Refills(s) 0, Pharmacy: [facility]/pharmacy #[id number], 154, cm, 07/06/24 14:01:00 EST, Height/Length Dosing, 63, kg, 07/06/24 14:01:00 EST, Weight Dosing Start Date: 07/06/24 Stop Date: 07/13/24 Status: Ordered Start: 04-21-2024 End: 04-28-2024 take 1 tablet by mouth every twelve hours Cipro 250 mg Tab 250 mg = 1 tab(s), Oral, q12hr, X 7 day(s), # 14 tab(s), Refills(s) 0, Pharmacy: [facility]/pharmacy #[id number], 154, cm, 04/21/24 13:16:00 EST, Height/Length Dosing, 66, kg, 04/21/24 13:16:00 EST, Weight Dosing Start Date: 04/21/24 Stop Date: 04/28/24 Status: Ordered Start: 2024 End: 01-12-2024 take 1 tablet by mouth every twelve hours ciprofloxacin (Cipro) 250 MG tablet TAKE 1 TABLET BY MOUTH EVERY 12 HOURS FOR 3 DAYS 2024 01/12/2024 Discontinued Start: 08-10-2023 End: 08-17-2023 take 1 tablet by mouth every twelve hours Cipro 250 mg Tab 250 mg = 1 tab(s), Oral, q12hr, X 7 day(s), # 14 tab(s), Refills(s) 0, Pharmacy: [facility]/pharmacy #[id number], 155, cm, 08/09/23 23:21:00 EDT, Height/Length Dosing, 67.6, kg, 08/09/23 23:21:00 EDT, Weight Dosing Start Date: 08/10/23 Stop Date: 08/17/23 Status: Ordered Start: 09-13-2022 End: 01-12-2024 take 1 tablet by mouth in the morning ciprofloxacin (Cipro) 500 MG tablet Take 500 mg by mouth in the morning and 500 mg before bedtime. 09/13/2022 01/12/2024 Discontinued Start: 11-16-2021 End: 11-23-2021 take 1 tablet by mouth every twelve hours Cipro 250 mg Tab 250 mg = 1 tab(s), Oral, q12hr, X 7 day(s), # 14 tab(s), Refills(s) 0, Pharmacy: [facility]/pharmacy #[id number], 157, cm, 11/16/21 15:24:00 EDT, Height/Length Dosing, 60, kg, 11/16/21 15:24:00 EDT, Weight Dosing Start Date: 11/16/21 Stop Date: 11/23/21 Status: Ordered Start: 11-07-2021 End: 11-14-2021 take 1 tablet by mouth every twelve hours Cipro 250 mg Tab 250 mg = 1 tab(s), Oral, q12hr, X 7 day(s), # 14 tab(s), Refills(s) 0, Pharmacy: [facility]/pharmacy #[id number], 157, cm, 11/07/21 8:56:00 EDT, Height/Length Dosing, 59.9, kg, 11/07/21 8:56:00 EDT, Weight Dosing Start Date: 11/07/21 Stop Date: 11/14/21 Status: Ordered Start: 09-07-2021 take 1 tablet by cachorro th twice daily Cipro 500 mg Tab 500 mg = 1 tab(s), Oral, BID, # 14 tab(s), Refills(s) 0, [id number] 157, cm, 09/07/21 5:48:00 EDT, Height/Length Dosing, 63.8, kg, 09/07/21 5:48:00 EDT, Weight Dosing Start Date: 09/07/21 Status: Ordered Start: 07-19-2021 End: 05-25-2022 take 1 tablet by mouth every two hours Ciprofloxacin Hcl (Cipro) 500 mg tablet Discontinued 500 MG PO Twice daily July 19, 2021 12:00am May 25, 2022 8:39pm administer dose at least 2 hrs before/6 hrs after dairy products, calcium, zinc, and/or iron-containing products clonazePAM 0.5 mg oral tablet (20 sources) Benzodiazepine Start: 02-13-2024 take 1 tablet by mouth at bedtime clonazePAM (KlonoPIN) 0.5 MG tablet Take 0.5 mg by mouth at bedtime 02/13/2024 Active Start: 08-27-2023 take 1 mg by mouth t hree times daily Clonazepam Active 1 MG PO Three times daily August 26, 2023 11:00pm Start: 10-09-2022 take 1 tablet by cachorro th three times daily as needed for anxiety clonazepam 1 mg Tab 1 mg = 1 tab(s), Oral, TID, TAKE 1 TABLET BY MOUTH THREE TIMES A DAY NEEDED FOR ANXIETY, # 12 tab(s), Refills(s) 0 Start Date: 09/12/23 Status: Ordered Start: 06-11-2022 End: 08-27-2023 take 0.5 mg by mouth three times daily Clonazepam Discontinued 0.5 MG PO Three times daily June 11, 2022 12:00am August 27, 2023 1:11pm Start: 03-27-2015 End: 06-28-2022 take 1 tablet by mouth three times daily Clonazepam (Klonopin) 1 mg Tablet Discontinued 1 MG PO Three times daily November 10, 2019 11:00pm June 11, 2022 10:09am take 1 mg by mouth twice daily C LONAZEPAM (KLONOPIN ORAL) Take 1 mg by mouth twice daily. 0 Active Comment on above: Take 1 mg by mouth t wice daily. cyclobenzaprine hydrochloride 10 mg oral tablet (17 sources) Muscle Relaxant Start: 03-24-20 take 1 tablet by mouth twice daily cyclobenzaprine (FLEXERIL) 10 MG tablet Take 10 mg by mouth 2 (two) times a day 0 03/24/2015 Active diazePAM vaginal suppository 5 mg (CPD) (2 sources) Start: 10-03-19 End: 11-18-19 diazePAM vaginal suppository 5 mg (CPD) Indications: [...] directed. dicyclomine hydrochloride 10 mg oral capsule (5 sources) Anticholinergic Start: 4 End: 4 take 1 capsule by mouth four times daily Bentyl 10 mg Cap 10 mg = 1 cap(s), Oral, QID, X 7 day(s), # 28 cap(s), Refills(s) 0, Pharmacy: [facility]/pharmacy #[id number], 154, cm, 05/16/24 12:57:00 EST, Height/Length Dosing, 62.3, kg, 05/16/24 12:57:00 EST, Weight Dosing Start Date: 05/16/24 Stop Date: 05/23/24 Status: Ordered Start: 01-30-2022 End: 02-06-2022 take 1 capsule by mouth four times daily Bentyl 10 mg Cap 10 mg = 1 cap(s), Oral, QID, X 7 day(s), # 14 cap(s), Refills(s) 0 Start Date: 01/30/22 Stop Date: 02/06/22 Status: Ordered docusate sodium 100 mg oral capsule (20 sources) Start: 05-16-2024 take 1 capsule by mouth twice daily Colace 100 mg Cap 100 mg = 1 cap(s), Oral, BID, # 20 cap(s), Refills(s) 0, Pharmacy: [facility]/pharmacy #[id number], 154, cm, 05/16/24 12:57:00 EST, Height/Length Dosing, 62.3, kg, 05/16/24 12:57:00 EST, Weight Dosing Start Date: 05/16/24 Status: Ordered Start: 04-21-2024 End: 05-01-2024 take 1 capsule by mouth twice daily as needed for constipation Colace 50 mg oral capsule 50 mg = 1 cap(s), Oral, BID, PRN for constipation, X 10 day(s), # 20 cap(s), Refills(s) 0, Pharmacy: [facility]/pharmacy #[id number], 154, cm, 04/21/24 13:16:00 EST, Height/Length Dosing, 66, kg, 04/21/24 13:16:00 EST, Weight Dosing Start Date: 04/21/24 Stop Date: 05/01/24 Status: Ordered Start: 12-17-2021 End: 02-10-2024 take 1 capsule by mouth twice daily Colace 100 mg Cap 100 mg = 1 cap(s), Oral, BID, # 20 cap(s), Refills(s) 0, Pharmacy: [facility]/pharmacy #[id number], 154, cm, 05/16/24 12:57:00 EST, Height/Length Dosing, 62.3, kg, 05/16/24 12:57:00 EST, Weight Dosing Start Date: 05/16/24 Status: Ordered donepezil hydrochloride 5 mg oral tablet (20 sources) Start: 09-03-2023 take 1 tablet by mouth once daily at bedtime donepezil 5 mg Tab 5 mg = 1 tab(s), Oral, Once a day (at bedtime), Refills(s) 0 Start Date: 03/14/24 Status: Ordered DuoNeb 2.5 mg-0.5 mg/3 mL Soln-Inh (20 sources) Start: 05-02-2021 take 3 mL by inhalation four times daily DuoNeb 2.5 mg-0.5 mg/3 mL Soln-Inh 3 mL, Inhalation, QID, 360 mL, Refill(s) 1, [facility]/pharmacy #[id number], 180.3, cm, 03/20/21 9:01:00 EDT, Height/Length Dosing, 65.6, kg, 03/20/21 8:59:00 EDT, Weight Dosing Start Date: 05/02/21 Status: Ordered escitalopram 5 mg oral tablet (20 sources) Serotonin Reuptake Inhibitor Start: 11-25-2023 take 1 tablet by mouth once daily escitalopram 5 mg oral tablet 5 mg = 1 tab(s), Oral, Daily, Refills(s) 0 Start Date: 03/14/24 Status: Ordered famotidine 20 mg oral tablet (6 sources) Histamine-2 Receptor Antagonist Start: 02-05-2022 End: 03-07-2022 take 1 tablet by mouth once daily famotidine 20 mg Tab 20 mg = 1 tab(s), Oral, Daily, X 30 day(s), # 30 tab(s), Refills(s) 0, Pharmacy: [facility]/pharmacy #[id number], 155, cm, 02/03/22 10:02:00 EDT, Height/Length Dosing, 58.8, kg, 02/04/22 7:14:00 EDT, Weight Dosing Start Date: 02/05/22 Stop Date: 03/07/22 Status: Ordered ferrous sulfate 325 mg oral tablet (20 sources) Start: 12-17-2021 take 1 tablet by mouth three times daily ferrous sulfate 325 mg Tab 325 mg = 1 tab(s), Oral, TID, # 90 tab(s), Refills(s) 0, Pharmacy: [facility]/pharmacy #[id number], 155, cm, 12/16/21 7:46:00 EDT, Height/Length Dosing, 60.4, kg, 12/16/21 7:46:00 EDT, Weight Dosing Start Date: 12/17/21 Status: Ordered Comment on above: Take by mouth. fluticasone propionate 0.05 mg/actuat metered dose nasal spray (20 sources) Corticosteroid Start: 10-14-2022 take 2 spray(s) nasal route once daily fluticasone (Flonase) 50 MCG/ACT nasal spray SPRAY 2 SPRAYS INTO EACH NOSTRIL DAILY 10/14/2022 Active Start: 11-21-2021 fluticasone 0. 05 mg/inh Nasal [place] 2 spray(s), Nasal, Daily, 1 EA, Refill(s) 5, each nostril, [facility]/pharmacy #[id number], 157, cm, 11/17/21 17:26:00 EDT, Height/Length Dosing, 60, kg, 11/17/21 17:26:00 EDT, Weight Dosing Start Date: 11/21/21 Status: Ordered Start: 09-08-2021 Fluticasone Pr opionate Active 2 SPRAY INTRANASAL Daily September 07, 2021 11:00pm each nares Start: 05-28-2021 fluticasone 0. 05 mg/inh Nasal [place] 2 spray(s), Nasal, Daily, 1 EA, Refill(s) 5, each nostril, [facility]/pharmacy #[id number], 157, cm, 05/26/21 11:56:00 EST, Height/Length Dosing, 66, kg, 05/26/21 11:56:00 EST, Weight Dosing Start Date: 05/28/21 Status: Ordered fluticasone 0.05 mg/inh Nasa l [place] (20 sources) Start: 11-21-2021 fluticasone 0. 05 mg/inh Nasal [place] 2 spray(s), Nasal, Daily, 1 EA, Refill(s) 5, each nostril, [facility]/pharmacy #[id number], 157, cm, 11/17/21 17:26:00 EDT, Height/Length Dosing, 60, kg, 11/17/21 17:26:00 EDT, Weight Dosing Start Date: 11/21/21 Status: Ordered Start: 05-28-2021 fluticasone 0. 05 mg/inh Nasal [place] 2 spray(s), Nasal, Daily, 1 EA, Refill(s) 5, each nostril, [facility]/pharmacy #[id number], 157, cm, 05/26/21 11:56:00 EST, Height/Length [...] 1 tablet Orally Once a day Active hyoscyamine sulfate 0.125 mg oral tablet (11 sources) hyoscyamine (Lev sin) 0.125 MG tablet every 4 (four) hours Active levoFLOXacin 500 mg oral tablet (1 source) Quinolone Antimicrobial Start: 04-01-2022 End: 04-11-2022 take 1 tablet by mouth every twenty-fou r hours Levaquin 500 mg Tab 500 mg = 1 tab(s), Oral, q24hr, X 10 day(s), # 10 tab(s), Refills(s) 0, Pharmacy: [facility]/pharmacy #[id number], 154, cm, 03/04/22 13:21:00 EDT, Height/Length Dosing, 57, kg, 03/04/22 13:21:00 EDT, Weight Dosing Start Date: 04/01/22 Stop Date: 04/11/22 Status: Ordered lidocaine hydrochloride 0.02 mg/mg topical gel (1 source) Antiarrhythmic, Amide Local Anesthetic Start: 02-07-2022 End: 02-07-2022 lidocaine urojet 2 % 6 mL topical gel (XYLOCAINE, GLYDO) lisinopril 20 mg oral tablet (20 sources) Angiotensin Converting Enzyme Inhibitor Start: 08-02-2022 take 1 tablet by mouth in the morning lisinopril 20 MG tablet Take 20 mg by mouth in the morning. 08/02/2022 Active Start: 03-26-2015 End: 06-11-2022 take 20 mg by mouth once daily Lisinopril Discontinued 20 MG PO Daily August 06, 2021 11:00pm June 11, 2022 10:09am take 1 tablet by cachorro th every twenty-four hours Lisinopril 10 MG 1 tablet Orally Once a day for 30 day(s) Active Comment on above: Take 20 mg by mouth once daily. loratadine 10 mg oral capsule (20 sources) Start: 03-14-2024 take 1 capsule by mouth once daily loratadine 10 mg oral capsule 10 mg = 1 cap(s), Oral, Daily, # 10 cap(s), Refills(s) 0 Start Date: 03/14/24 Status: Ordered Start: 08-27-2023 End: 02-25-2024 Claritin 10 MG tablet 1 (one ) time each day at the same time 08/27/2023 02/25/2024 Active methenamine hippurate 1000 mg oral tablet (11 sources) Start: 12-17-2023 take 0.5 tablet by mouth twice daily methenamine hippurate (Hiprex) 1 g tablet TAKE 1/2 TABLET BY MOUTH TWICE A DAY 12/17/2023 Active Miralax 17 gram packet (20 sources) Start: 12-16-2021 take 17 g by mouth once daily Miralax 17 gram packet 17 gm, Oral, Daily, Refills(s) 0 Start Date: 12/16/21 Status: Ordered Miralax 3350 17 gram packet (2 sources) Start: 02-26-2020 Miralax 3350 1 7 gram packet 17 gram, Oral, Daily, # 255 gram, Refills(s) 1, Pharmacy: [facility]/pharmacy #[id number], 155, cm, 02/25/20 9:42:00 EDT, Height/Length Dosing, 69.9, kg, 02/25/20 9:42:00 EDT, Weight Dosing Start Date: 02/26/20 Status: Ordered naloxone hydrochloride 40 mg/ml nasal spray (20 sources) Opioid Antagonist Start: 09-16-2022 naloxone (Na rcan) 4 mg/0.1 mL nasal spray FOR EMERGENCY USE ONLY. DO NOT SELF ADMINISTER 09/16/2022 Active Start: 07-17-2021 naloxone (NARC AN) 4 mg/actuation [place] Administer 1 spray into one nostril for [...] day(s), # 14 cap(s), Refills(s) 0, Pharmacy: [facility]/pharmacy #[id number], 165, cm, 10/20/21 7:35:00 EDT, Height/Length Dosing, 63, kg, 10/20/21 7:35:00 EDT, Weight Dosing Start Date: 10/20/21 Stop Date: 10/27/21 Status: Ordered Start: 09-06-2021 End: 09-20-2021 take 1 capsule by mouth twice daily Macrobid 100 mg Cap 100 mg = 1 cap(s), Oral, BID, X 14 day(s), # 28 cap(s), Refills(s) 0, [id number] 162, cm, 09/06/21 11:53:00 EDT, Height/Length Dosing, 63.8, kg, 09/06/21 11:53:00 EDT, Weight Dosing Start Date: 09/06/21 Stop Date: 09/20/21 Status: Ordered nitrofurantoin macrocrystals-monohydrate 100 mg Cap (1 source) Start: 10-27-2021 End: 11-01-2021 take 1 capsule by mouth twice daily nitrofurantoin macrocrystals-monohydrate 100 mg Cap 100 mg = 1 cap(s), Oral, BID, X 5 day(s), # 10 cap(s), Refills(s) 0, Pharmacy: [facility]/pharmacy #[id number], 165, cm, 10/27/21 9:52:00 EDT, Height/Length Dosing, 63, kg, 10/27/21 9:52:00 EDT, Weight Dosing Start Date: 10/27/21 Stop Date: 11/01/21 Status: Ordered nitrofurantoin, macrocrystals 25 mg / nitrofurantoin, monohydrate 75 mg oral capsule (20 sources) Nitrofuran Antibacterial Start: 03-09-2024 End: 03-14-2024 take 1 capsule by mouth every twelve hours Macrobid 100 mg Cap 100 mg = 1 cap(s), Oral, q12hr, X 5 day(s), # 10 cap(s), Refills(s) 0, Pharmacy: [facility]/pharmacy #[id number], 154.9, cm, 03/09/24 6:37:00 EDT, Height/Length Dosing, 65.9, kg, 03/09/24 6:37:00 EDT, Weight Dosing Start Date: 03/09/24 Stop Date: 03/14/24 Status: Ordered Start: 09-12-2023 End: 03-02-2024 take 1 capsule by mouth twice daily [...] day(s), # 10 cap(s), Refills(s) 0, Pharmacy: [facility]/pharmacy #[id number], 154.9, cm, 01/15/22 15:56:00 EDT, [...] Take 1 capsule by mo [facility] once daily for 7 days. Take 1 capsule by mo [facility] twice daily for 5 days. OLANZapine 7.5 mg oral tablet (20 sources) Atypical Antipsychotic Start: take 1 tablet by mouth once daily at bedtime olanzapine 7.5 mg oral tablet 7.5 mg = 1 tab(s), Oral, Once a day (at bedtime), Refills(s) 0 Start Date: 03/14/24 Status: Ordered Start: 01-30-2024 take 1 tablet by c[place] at bedtime OLANZapine (ZyPREXA) 10 MG tablet Take 1 tablet by mouth at bedtime 01/30/2024 Active Start: 12-18-2023 End: 02-02-2024 take 1 tablet by mouth once daily at bedtime OLANZapine (ZyPREXA) 7.5 MG tablet TAKE 1 TABLET BY MOUTH AT BEDTIME ORALLY ONCE A DAY 30 DAYS 12/18/2023 02/02/2024 Discontinued (Duplicate order) Start: 08-27-2023 End: 09-01-2023 take 10 mg by mouth once daily in the evening Olanzapine Discontinued 10 MG PO Every evening August 26, 2023 11:00pm September 01, 2023 11:12am Start: 06-11-2022 End: 01-12-2024 take 1 tablet by mouth at bedtime OLANZapine (ZyPREXA) 5 MG tablet Take 1 tablet by mouth at bedtime. 07/31/2022 01/12/2024 Discontinued (Duplicate order) End: 01-12-2024 OLANZapine (ZyPREXA) 10 MG t ablet 1 (one) time each day at the same time. 01/12/2024 Discontinued (Duplicate order) omeprazole 40 mg delayed release oral capsule (13 sources) Proton Pump Inhibitor Start: 08-28-2021 take 1 capsule by mouth once daily omeprazole 40 mg Cap-DR 40 mg = 1 cap(s), Oral, Daily, # 30 cap(s), Refills(s) 2, Pharmacy: [facility]/pharmacy #[id number], 162, cm, 08/06/21 8:29:00 EDT, Height/Length Dosing, 63.5, kg, 08/06/21 8:29:00 EDT, Weight Dosing Start Date: 08/28/21 Status: Ordered omeprazole 40 mg Cap-DR (20 sources) Start: 08-28-2021 take 1 capsule by mouth once daily omeprazole 40 mg Cap-DR 40 mg = 1 cap(s), Oral, Daily, # 30 cap(s), Refills(s) 2, [id number] 162, cm, 08/06/21 8:29:00 EDT, Height/Length Dosing, 63.5, kg, 08/06/21 8:29:00 EDT, Weight Dosing Start Date: 08/28/21 Status: Ordered ondansetron 4 mg disintegrating oral tablet (20 sources) Serotonin-3 Receptor Antagonist Start: 12-29-2022 take 1 tablet by mouth every six hours as needed for nausea ondansetron 4 mg Dis Tab 4 mg = 1 tab(s), Oral, q6hr, PRN Nausea/Vomiting, # 12 tab(s), Refills(s) 0, [id number] 154, cm, 05/16/24 12:57:00 EST, Height/Length Dosing, 62.3, kg, 05/16/24 12:57:00 EST, Weight Dosing Start Date: 05/16/24 Status: Ordered Start: 08-02-2021 take 4 mg by mouth e very eight hours Ondansetron Hcl Active 4 MG PO Every 8 hours August 06, 2021 11:00pm ondansetron ODT (Zofran-ODT) 4 MG disintegrating tablet 1 (one) time each day at the same time. Active pantoprazole 40 mg delayed release oral tablet (20 sources) Proton Pump Inhibitor Start: 05-24-2022 take 1 tablet by mouth once daily Pantoprazole [address] Tab TAKE 1 TABLET BY MOUTH EVERY DAY Start Date: 05/24/22 Status: Ordered Start: 08-08-2021 End: 05-25-2022 take 40 mg by mouth twice daily Pantoprazole Discontin ued 40 MG PO Twice daily 60 August 07, 2021 11:50pm May 25, 2022 8:42pm Start: 07-09-2021 take 1 tablet by cachorro th once daily Pantoprazole [address] Tab 40 mg = 1 tab(s), Oral, Daily, # 90 tab(s), Refills(s) 1, Pharmacy: [facility]/pharmacy #[id number], 157, cm, 07/08/21 1:27:00 EST, Height/Length Dosing, 64, kg, 07/08/21 1:27:00 EST, Weight Dosing Start Date: 07/09/21 Status: Ordered Start: 12-28-2014 End: 08-08-2021 take 40 mg by mouth once daily Pantoprazole Discontinu ed 40 MG PO Daily August 06, 2021 11:00pm August 07, 2021 11:50pm Comment on above: Take 40 mg by mouth once daily. phenazopyridine hydrochloride 100 mg oral tablet (20 sources) Start: 07-12-2024 End: 07-15-2024 take 1 tablet by mouth three times daily Pyridium 100 mg Tab 100 mg = 1 tab(s), Oral, TID, X 3 day(s), # 9 tab(s), Refills(s) 0, [id number] 154, cm, 07/12/24 12:55:00 EST, Height/Length Dosing, 62, kg, 07/12/24 12:55:00 EST, Weight Dosing Start Date: 07/12/24 Stop Date: 07/15/24 Status: Ordered Start: 06-17-2024 End: 06-20-2024 take 1 tablet by mouth three times daily Pyridium 100 mg Tab 100 mg = 1 tab(s), Oral, TID, X 3 day(s), # 9 tab(s), Refills(s) 0, [id number], 154, cm, 06/17/24 14:08:00 EST, Height/Length Dosing, 63, kg, 06/17/24 14:08:00 EST, Weight Dosing Start Date: 06/17/24 Stop Date: 06/20/24 Status: Ordered Start: 03-11-2024 End: 03-14-2024 phenazopyridine 200 mg Tab 2 00 mg = 1 tab(s), Oral, TIDPC, Refills(s) 0 Start Date: 03/14/24 Status: Ordered Start: 02-13-2022 End: 02-16-2022 take 1 tablet by mouth three times daily Pyridium 200 mg Tab 200 mg = 1 tab(s), Oral, TID, X 3 day(s), # 9 tab(s), Refills(s) 0, Pharmacy: [facility]/pharmacy #[id number], 154.9, cm, 02/13/22 11:50:00 EDT, [...] days, # 9 tab(s), Refills(s) 0, Pharmacy: [facility]/pharmacy #[id number], 157, cm, 11/07/21 8:56:00 EDT, Height/Length Dosing, 59.9, kg, 11/07/21 8:56:00 EDT, Weight Dosing Start Date: 11/07/21 Status: Ordered Start: 09-08-2021 End: 09-10-2021 take 1 tablet by mouth three times daily Pyridium 200 mg Tab 200 mg = 1 tab(s), Oral, TID, X 2 day(s), # 6 tab(s), Refills(s) 0, [id number], 158, cm, 09/08/21 8:41:00 EDT, Height/Length Dosing, 63, kg, 09/08/21 8:41:00 EDT, Weight Dosing Start Date: 09/08/21 Stop Date: 09/10/21 Status: Ordered Start: 07-22-2021 End: 08-07-2021 take 1 tablet by mouth every eight hours Phenazopyridine (Pyridium) 200 mg tablet Discontinued 200 MG PO Q8H 9 July 22, 2021 12:00am August 07, 2021 10:22pm Plenvu oral powder for reconstitution (10 sources) Start: 08-07-2021 take 1 dose by mouth once Plenvu oral powder for reconstitution See Instructions, 1 EA, Refill(s) 0, samples given to patient (Rx), Per physician's instructions. Prior to colonoscopy. Ordered as instructed by Dr. Lopes. Start Date: 08/07/21 Status: Ordered polyethylene glycol 3350 13750 mg powder for oral solution (20 sources) Osmotic Laxative Start: 05-16-2024 take 17 g by mouth once daily Miralax 3350 17 gram packet 17 gm, Oral, Daily, # 10 EA, Refills(s) 0, Pharmacy: [facility]/pharmacy #[id number], 154, cm, 05/16/24 12:57:00 EST, Height/Length Dosing, 62.3, kg, 05/16/24 12:57:00 EST, Weight Dosing Start Date: 05/16/24 Status: Ordered Start: 12-16-2021 take 17 g by mouth once daily Miralax 17 gram packet 17 gm, Oral, Daily, Refills(s) 0 Start Date: 12/16/21 Status: Ordered potassium chloride 10 meq extended release oral tablet (20 sources) Start: 09-13-2022 take 1 tablet by mouth every other day potassium chloride CR (Klor-Con) 10 MEQ ER tablet TAKE 1 TABLET BY MOUTH EVERY OTHER DAY DIRECTED 09/13/2022 Active Start: 08-07-2021 take 10 mEq by mouth once johnnie y Potassium Chloride Active 10 MEQ PO Daily August 07, 2021 11:08pm Start: 07-09-2021 take 1 capsule by [facility] every other day potassium chloride 10 mEq Cap-ER 10 mEq = 1 cap(s), Oral, Every other day, # 30 EA, Refills(s) 2, Pharmacy: [facility]/pharmacy #[id number], 154.9, cm, 02/01/22 6:28:00 EDT, Height/Length Dosing, 52, kg, 02/01/22 6:28:00 EDT, Weight Dosing Start Date: 02/01/22 Status: Ordered Start: 07-09-2021 take 1 capsule by [facility] every other day potassium chloride 10 mEq Cap-ER 10 mEq = 1 cap(s), Oral, Every other day, # 30 EA, Refills(s) 2, Pharmacy: [facility]/pharmacy #[id number], 157, cm, 07/08/21 1:27:00 EST, Height/Length Dosing, 64, kg, 07/08/21 1:27:00 EST, Weight Dosing Start Date: 07/09/21 Status: Ordered Comment on above: TAKE 1 CAPSULE BY [facility] EVERY OTHER DAY pregabalin 150 mg oral capsule (20 sources) [...] oral tablet (20 sources) Phenothiazine Start: 04-01-20 take 1 tablet by mouth every eight hours promethazine (PHENERGAN) 25 MG tablet Take 25 mg by mouth every 8 (eight) hours 0 04/01/2015 Active Comment on above: Take 25 mg by mouth every 8 hours as needed. sennosides, residential 8.6 mg oral tablet (20 sources) Start: 09-07-19 senna (SENOKOT) 8.6 mg tab Take by mouth. 0 09/06/2021 Active Start: 09-06-2021 take 2 tablets by mo uth once daily at bedtime senna 8.6 mg Tab 17.2 mg = 2 tab(s), Oral, Once a day (at bedtime), # 20 tab(s), Refills(s) 0, Pharmacy: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 intentional self-inflicted injury (1 source) Suicidal thoughts; Translations: [Suicidal ideations] Onset: 04-17-20 24 Episodic Syncope (1 source) Syncope and collapse; Translations: [Syncope and collapse] Onset: 11-09-19 Episodic Thyroid disorders (20 sources) Non-toxic uninodular goiter; Translations: [Nontoxic single thyroid nodule] Onset: 02-04-20 Chronic Unclassified (1 source) Perry coma scale score 13-15, at hospital admission; Translations: [JAMEE COMA SCALE SCORE 13-15, AT HOSPITAL ADMISSION] Onset: 09-28-19 Unclassified (2 sources) Unknown / UNK(Unknown) Onset: 09-28-19 Unclassified (20 sources) Non-smoker 12-06-2019 Unclassified (2 sources) Monitor electrolytes; Translations: [Monitor electrolytes] Onset: 02-04-20 23 Urinary tract infections (1 source) Other chronic cystitis without hematuria; Translations: [OTH CHRONIC CYSTITIS W/O HEMATURIA] Onset: 12-06-19 22 Chronic Urinary tract infections (20 sources) Urinary tract infectious disease; Translations: [Urinary tract infection, site not specified] Onset: 09-08-19 Episodic Past or Other Problems Problem Classification [...] Candidiasis of mouth Resolved: 10-21-2018 12-24-2018 Episodic Other aftercare (2 sources) Other senior living (current) drug therapy; Translations: [Long-term (current) use [...] [Altered mental status, unspecified] Onset: 07-05-2023 Episodic Respiratory failure; insufficiency; arrest (adult) (1 source) Acute respiratory failure with hypoxia; Translations: [J96.01] Onset: 03-14-2024 Episodic Skull and face fractures (20 sources) Closed fracture of base of skull with concussion Resolved: 11-07-2017 10-21-2018 Episodic Superficial injury; contusion (2 sources) Superficial injury of head; Translations: [Contusion of other part of head, initial encounter] Onset: 12-05-2021 Episodic Unclassified (20 sources) Agent Vinson (substance) Resolved: 03-01-2010 10-21-2018 Unclassified (20 sources) [...] Interpretation Reference Range Facility ED Clinical Summaryon 2024 ED Clinical Summary ED Clinical Summary [place] [address] ED Clinical Summary Person Information Name: MAEGAN DYE/[facility] Age: 74 Years : 1950 Sex: Female Language: Dutch PCP: AZUL GORMAN CNP Marital Status: Phone: Visit Id: Visit Reason: Rib/trunk pain-swelling; RIB PAIN Speciality: Acuity: 4 Enc Type: Emergency Med Service: Emergency Arrival: 07/28/2024 10:55:26 Discharge: 07/28/2024 11:57:41 LOS: 000 01:02 Checkin: 07/28/2024 10:55:26 Checkout: 07/28/2024 11:57:41 Dispo Type: Home (Routine DC) EVENTS: Event Name Event Status Request Date/Time Start Date/Time Complete Date/Time Arrive Complete 07/28/2024 10:55:26 07/28/2024 10:55:26 07/28/2024 10:55:26 Document Home Meds Request 07/28/2024 10:55:26 Triage Complete 07/28/2024 10:55:26 07/28/2024 11:09:32 07/28/2024 11:09:32 Dr Exam Complete 07/28/2024 11:00:26 07/28/2024 11:00:26 07/28/2024 11:00:26 Registration Complete 07/28/2024 11:00:26 07/28/2024 11:01:20 07/28/2024 11:01:20 Reg Complete Request 07/28/2024 11:01:20 Reg Bed Request Complete 07/28/2024 11:01:20 07/28/2024 11:01:20 07/28/2024 11:01:20 Bed Assign Complete 07/28/2024 11:01:52 07/28/2024 11:01:52 07/28/2024 11:01:52 RN Exam Complete 07/28/2024 11:01:52 07/28/2024 11:24:15 07/28/2024 11:24:15 Isolation Screening Request 07/28/2024 11:09:32 Dr Exam Complete 07/28/2024 11:11:16 07/28/2024 11:11:16 07/28/2024 11:11:16 Registration Request 07/28/2024 11:11:16 Discharge Complete 07/28/2024 11:39:25 07/28/2024 11:57:47 07/28/2024 11:57:47 Transfer Complete 07/28/2024 11:57:47 07/28/2024 11:57:47 07/28/2024 11:57:47 ADDRESS: [facility] [facility] [phone] PHYS DOC NOTES: MEDICAL INFORMATION: Prescriptions Given: New Medications [id number], [address] [place], [place] [phone], [phone] acetaminophen-oxycodone (acetaminophen-oxycodone 325 mg-5 mg Tab) 1 Tablets By Mouth every 6 hours as needed for pain for 3 Days. Refills: 0. Medications to Continue with No Changes Other Medications amlodipine (amLODIPine 5 mg Tab) 1 Tablets By Mouth every day. TAKE 1 TABLET BY MOUTH EVERY DAY. celecoxib (celecoxib 200 mg Cap) TAKE 1 CAPSULE BY MOUTH EVERY DAY. clonazepam (clonazepam 1 mg Tab) 1 Tablets By Mouth 3 times a day. TAKE 1 TABLET BY MOUTH THREE TIMES A DAY NEEDED FOR ANXIETY. Refills: 0. docusate (Colace 100 mg Cap) 1 Capsules By Mouth 2 times a day. Hold for diarrhea. Refills: 0. docusate (Colace 100 mg Cap) 1 Capsules By Mouth 2 times a day. Refills: 0. Ensure (Ensure Vanilla) Drink 1 bottle (8 fl. oz.) BID. Refills: 5. fluticasone nasal (fluticasone 0.05 mg/inh Nasal Mulberry) 2 Sprays Nasal Inhalation every day. each nostril. Refills: 5. loratadine (loratadine 10 mg oral capsule) 1 Capsules By Mouth every day. [facility] Prescription (Walker) Dispense one walker. Refills: 0. olanzapine (olanzapine 7.5 mg oral tablet) 1 Tablets By Mouth once a day (at bedtime). ondansetron (ondansetron 4 mg Dis Tab) 1 Tablets By Mouth every 6 hours as needed Nausea/Vomiting. Refills: 0. ondansetron (ondansetron 4 mg Dis [...] packet) 17 Gram By Mouth every day. polyethylene glycol 3350 (Miralax 3350 17 gram packet) 17 Gram By Mouth every day. Refills: 0. potassium chloride (potassium chloride 10 mEq Cap-ER) 1 Capsules By Mouth every other day. Refills: 2. sodium chloride 2 gram By Mouth 3 times a day. sulfamethoxazole-trimethop rim (sulfamethoxazole-trimetho prim 400 mg-80 mg Tab) trazodone (traZODONE 150 mg Tab) 1 Tablets By Mouth once a day (at bedtime). Do not give with clonazepam. Refills: 3. PATIENT EDUCATION INFORMATION: Instructions: Rib Fracture Follow up: With: Address: When: [place] [address] [facility] (1) In 3 days 07/31/2024 Comments: Call Dr for diagnosis based follow up DIAGNOSIS: Right rib fracture Normal [facility] ED Patient Summaryon 025 ED Patient Summary ED Patient Summary [address] [address] Patient Discharge Instructions Person Information Name: MAEGAN DYE Age: 74 Years Arrival Date: 07/28/2024 10:55:26 Discharge Diagnosis: Right rib fracture Primary Care Physician: AZUL GORMAN CNP Provider Information Primary Provider: Didier Hooks M.D. [employer] Up Operator Vertical:Rodrigue John PA-C The exam and treatment you received in the Emergency Department were for an urgent problem and are not intended as complete care. It is important that you follow up with a doctor, nurse practitioner, or physician???s assistant executive housekeeper for ongoing care. If your symptoms become worse or you do not improve as expected and you are unable to reach your usual health care provider, you should return to the Emergency Department. We are available 24 hours a day. MAEGAN DYE has been given the following list of patient education materials, prescriptions and follow-up instructions: Follow-up Instructions: With: Address: When: [place] [address] Business (1) In 3 days 07/31/2024 Comments: Call Dr for diagnosis based follow up In the event that this physician does not participate in your insurance network, please consult with your insurance company to find a nearby participating provider. Patient Education Materials: Rib Fracture A MESSAGE TO ALL PATIENTS REGARDING OPIOIDS PRESCRIPTION OPIOIDS: WHAT YOU NEED TO KNOW Prescription opioids can be used to help relieve bzjwowrc-zu-liotow pain and are often prescribed following a [...] as well, even when taken as directed: ??? Tolerance???meaning you might need to take more of the medication for the same pain relief ??? Physical dependence???meaning you have symptoms of withdrawal when a medication is stopped ??? Increased sensitivity to pain ??? Constipation ??? Nausea, vomiting, and dry mouth ??? Sleepiness and dizziness ??? Confusion ??? Depression ??? Low levels of testosterone that can result in lower sex drive, energy, and strength ??? Itching and sweating RISKS ARE GREATER WITH: ??? History of drug misuse, substance use disorder, or overdose ??? Mental health conditions (such as depression or anxiety) ??? Sleep apnea ??? Older age (65 years and older) ??? Avoid alcohol while taking prescription opioids. Also, unless specifically advised by your health care provider, medications to avoid include: ??? Benzodiazepines (such as Xanax or Valium) ??? Muscle relaxants (such as Soma or Flexeril) ??? Hypnotics (such as Ambien or Lunesta) ??? Other prescription opioids KNOW YOUR OPTIONS Talk to your health care provider about ways to manage your pain that don???t involve prescription opioids. Some of these options may actually work better and have fewer risks and side effects. Options may include: ??? Pain relievers such as acetaminophen, ibuprofen, and naproxen ??? Some medication that are also used for depression or seizures ??? Physical therapy and exercise ??? Cognitive behavioral therapy, a psychological, goal-directed approach, in which patients learn how to modify physical, behavioral, and emotional triggers of pain and stress. IF YOU ARE PRESCRIBED OPIOIDS FOR PAIN: ??? Never take opioids in greater amounts or more often than prescribed. ??? Follow up with your primary health care provider. o Work together to create a plan on how to manage your pain. o Talk about ways to help manage your pain that don???t involve prescription opioids. o Talk about any and all concerns and side effects. ??? Help prevent misuse and abuse o Never sell or share prescription opioids. o Never use another person???s prescription opioids. ??? Store prescription opioids in a secure place and out of reach of others (this may include visitors, children, friends, and family). ??? Safely dispose of unused prescription opioids: Find your community drug take-back program or your pharmacy mail-back program, or flush them down the toilet, following guidance from the Food and Drug Administration (www.fda.gov/Drugs/Resourc esForYou). ??? Visit www.cdc.gov/drugoverdose to learn about the risks of opioids abuse and overdose. ??? If you believe you may be struggling with sally (more content not included)... Normal [facility] ED Note-Physicianon 07-28-19 ED Note-Physician ED Note-Physician Basic Information Time Seen: Malick Ho PA-C 07/24/2024 08:45 Chief Complaint pt to ER c/o R side rib pain that started this morning when she woke up. Pt denies injury to area. History of Present Illness 74-year-old female comes to the ED for evaluation of right-sided rib cage pain. The patient states she rolled over in bed and felt a pop in her right rib cage area. States she had previous fracture and a previous pneumothorax and that is her concern today. She draws a hand diffusely over the lateral right chest wall as the area of tenderness, pointing around the area of the eighth rib as the area of maximal tenderness. No shortness of breath. No cough or congestion. No prior treatments. Review of Systems A 10 point review of systems is negative except as noted above. Medical and Surgical History: Reviewed and noted Social history: Lives at home Tobacco: Denies Physical Exam Vitals & Measurements T: 36.9 ???C(Oral) HR: 75(Peripheral) RR: 16 BP: 152/98 SpO2: 98% HT: 154 cm WT: 58.1 kg BMI: 24.5 Nurses notes and vital signs reviewed and patient is not hypoxic. General: The patient appears well, resting comfortably. Skin: Warm, dry. Head: Atraumatic. Neck: No JVD. Eye: Normal conjunctiva. Ears, Nose, Mouth, and Throat: Moist mucous membranes. Cardiovascular: Strong distal pulses. Chest wall: Tenderness over the right lateral chest wall around the area of the eighth rib. Skin is intact. There is no rash or lesion. No ecchymosis or erythema. No soft tissue swelling. No bony instability. Respiratory: Respirations are nonlabored. Back: Normal range of motion. Musculoskeletal: Normal ROM with no gross deformity. Gastrointestinal: Soft and nontender Urological: Neurological: Awake and alert. No focal deficits. Follows commands. Psychiatric: Cooperative. Medical Decision Making Patient presents with right-sided rib pain after rolling over in bed and feeling a pop. X-ray does show possible nondisplaced fracture. No lung injury. She is medicated for pain here with improvement. Discharged home with pain medications and PCP follow-up. Patient was encouraged to return to the ED if symptoms worsen or change. Assessment/Plan Rib fracture (S22.39XA: Fracture of one rib, unspecified side, initial encounter for closed fracture) Ordered: acetaminophen-oxycodone, 1 tab(s), Oral, q6hr as needed for pain for 3 day(s), 12 tab(s), Refill(s) 0, [id number], 154, cm, 07/24/24 8:55:00 EST, Height/Length Dosing, 58.1, kg, 07/24/24 8:55:00 EST, Weight Dosing Orders: acetaminophen-oxycodone, 1 tab(s), Tab, Oral, Once, Stop date 07/24/24 9:18:00 EST, STAT, Start date 07/24/24 9:18:00 EST XR Ribs Unilat 3 Views Right w/ PA Chest Medications Administered Given Percocet 5 mg-325 mg oral tablet, 1 tab(s), Oral Disposition Plan Patient Discharge Condition Disposition: Discharged home Condition: Improved and stable Counseled: Patient and/or family were counseled to workup, results, treatment plan and follow-up recommendations Discharge Prescription List Prescriptions Percocet 5 mg-325 mg oral tablet, 1 tab(s), Oral, q6hr, PRN Follow-up With When Contact Information AZUL GORMAN In 3 days 07/27/2024 [place] [address]- Business (1) Additional Instructions: Patient Education Rib Fracture Attestation I performed a substantive part of the MDM during the patient???s E/M visit. I personally made or approved the documented management plan and acknowledge its risk of complications. (Independent Interpretation) My (EKG/X-Ray/US/CT) interpretation as above. (Discussion) Management/test interpretation discussed with APC. This report was transcribed using voice recognition software. Every effort was made to ensure accuracy, however, inadvertently computerized senior licensing manager mistakes may be present. Appropriate healthcare PPE was used in evaluating this patient. Problem List/Past Medical History Ongoing Acute UTI [...] chronic kidney disease Thyroid nodule Urinary retention Urinary retention with incomplete bladder emptying Vitamin D deficiency Historical Accidental fall Agent Vinson ASTHMA Benzodiazepine withdrawal Bipolar disorder Callus of foot Cerebral hemorrhage chronic back pain Chronic GERD Chronic k (more content not included)... Normal [facility] Comment on above: Result Comment: Elec tronically Signed By: Malick Ho PA-C\.br\Date and Time Signed: 07/24/24 09:42 EST\.br\Electronically Co-Signed By: Chandan Adhikari DO\.br\Date and Time Co-Signed: 07/27/24 07:04 EST ED Clinical Summaryon 2024 ED Clinical Summary ED Clinical Summary [address] [address] ED Clinical Summary Person Information Name: MAEGAN DYE/[facility] Age: 74 Years : 1950 Sex: Female Language: Dutch PCP: AZUL GORMAN CNP Marital Status: Visit Id: Visit Reason: Dysuria; Rib/trunk pain-swelling; RIB PAIN-CAN'T PEE Speciality: Acuity: 4 Enc Type: Emergency Med Service: Emergency Arrival: 07/25/2024 09:26:19 Discharge: 07/25/2024 11:40:24 LOS: 000 02:14 Checkin: 07/25/2024 09:26:19 Checkout: 07/25/2024 11:40:24 Dispo Type: Home (Routine DC) EVENTS: Event Name Event Status Request Date/Time Start Date/Time Complete Date/Time Arrive Complete 07/25/2024 09:26:19 07/25/2024 09:26:19 07/25/2024 09:26:19 Document Home Meds Request 07/25/2024 09:26:19 Triage Complete 07/25/2024 09:26:19 07/25/2024 09:49:46 07/25/2024 09:49:46 Bed Assign Complete 07/25/2024 09:35:25 07/25/2024 09:35:25 07/25/2024 09:35:25 Dr Exam Complete 07/25/2024 09:35:25 07/25/2024 09:36:27 07/25/2024 09:36:27 RN Exam Complete 07/25/2024 09:35:25 07/25/2024 09:51:06 07/25/2024 09:51:06 Registration Complete 07/25/2024 09:36:27 07/25/2024 09:40:37 07/25/2024 09:40:37 Reg Complete Request 07/25/2024 09:40:37 Reg Bed Request Complete 07/25/2024 09:40:37 07/25/2024 09:40:37 07/25/2024 09:40:37 Isolation Screening Request 07/25/2024 09:49:47 Fall Risk Request 07/25/2024 09:51:06 Patient Care Request 07/25/2024 10:07:53 Pending Labs Complete 07/25/2024 10:07:53 07/25/2024 10:30:06 Meds Admin Complete 07/25/2024 10:07:53 07/25/2024 10:28:42 Discharge Complete 07/25/2024 11:33:51 07/25/2024 11:40:33 07/25/2024 11:40:33 Transfer Complete 07/25/2024 11:40:33 07/25/2024 11:40:33 07/25/2024 11:40:33 ADDRESS: [address] [facility] [phone] PHYS DOC NOTES: MEDICAL INFORMATION: Prescriptions Given: Medications to Continue with No Changes Other Medications acetaminophen-oxycodone (Percocet 5 mg-325 mg oral tablet) 1 Tablets By Mouth every 6 hours as needed as needed for pain for 3 Days. Refills: 0. amlodipine (amLODIPine 5 mg Tab) 1 Tablets By Mouth every day. TAKE 1 TABLET BY MOUTH EVERY DAY. celecoxib (celecoxib 200 mg Cap) TAKE 1 CAPSULE BY MOUTH EVERY DAY. clonazepam (clonazepam 1 mg Tab) 1 Tablets By Mouth 3 times a day. TAKE 1 TABLET BY MOUTH THREE TIMES A DAY NEEDED FOR ANXIETY. Refills: 0. docusate (Colace 100 mg Cap) 1 Capsules By Mouth 2 times a day. Hold for diarrhea. Refills: 0. docusate (Colace 100 mg Cap) 1 Capsules By Mouth 2 times a day. Refills: 0. Ensure (Ensure Vanilla) Drink 1 bottle (8 fl. oz.) BID. Refills: 5. fluticasone nasal (fluticasone 0.05 mg/inh Nasal Mulberry) 2 Sprays Nasal Inhalation every day. each nostril. Refills: 5. loratadine (loratadine 10 mg oral capsule) 1 Capsules By Mouth every day. [facility] Prescription (Segundo) Dispense one walker. Refills: 0. olanzapine (olanzapine 7.5 mg oral tablet) 1 Tablets By Mouth once a day (at bedtime). ondansetron (ondansetron 4 mg Dis Tab) 1 Tablets By Mouth every 6 hours as needed Nausea/Vomiting. Refills: 0. ondansetron (ondansetron 4 mg Dis [...] packet) 17 Gram By Mouth every day. polyethylene glycol 3350 (Miralax 3350 17 gram packet) 17 Gram By Mouth every day. Refills: 0. potassium chloride (potassium chloride 10 mEq Cap-ER) 1 Capsules By Mouth every other day. Refills: 2. sodium chloride 2 gram By Mouth 3 times a day. sulfamethoxazole-trimethop rim (sulfamethoxazole-trimetho prim 400 mg-80 mg Tab) trazodone (traZODONE 150 mg Tab) 1 Tablets By Mouth once a day (at bedtime). Do not give with clonazepam. Refills: 3. PATIENT EDUCATION INFORMATION: Instructions: Rib Fracture Follow up: With: Address: When: [place] [address] [employer] (1) In 3 days 07/28/2024 Comments: Continue Percocet that was prescribed to you yesterday. Make sure to follow-up with your primary doctor as discussed. Continue the incentive spirometry every 2 hours as instructed. Return to the emergency room if your pain gets worse, shortness of breath, fever or any new symptoms. DIAGNOSIS: 1:Fracture of rib of right side Normal [facility] ED Note-Physicianon 07-26-19 ED Note-Physician ED Note-Physician Basic Information Time Seen: Didier Hooks M.D. 07/25/2024 09:36 Chief Complaint recent dx right rib fx, given percocet states it isn't helping. 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 also states she can't pee, pt urinates on arrival. History of Present Illness The patient is a 74-year-old female who presented to the emergency room with a right rib pain. The patient states she was diagnosed with a rib fracture yesterday. She fell out of bed. The patient states she has been holding the urine because of the pain. She states she has not been able to urinate because of the pain. The patient points to the right lower rib cage for the pain. She denies any cough. Denies any fever, denies any chills. The patient denies any abdominal pain. She denies any burning with urination. She denies any other associated symptoms. Review of Systems Additional ROS info: Except as noted in the above Review of Systems and in the History of Present Illness all other systems have been reviewed and are negative or noncontributory. Physical Exam Vitals & Measurements T: 36.5 ???C(Oral) HR: 73(Peripheral) RR: 20 BP: 140/72 SpO2: 93% HT: 154 cm WT: 58.1 kg BMI: 24.5 General: alert, mild distress Skin: warm, dry Head: no trauma, normocephalic Neck: Trachea midline, no tenderness, supple Eye: normal conjunctiva, sclera clear Cardiovascular: regular rate and rhythm Respiratory: Lungs CTA, respirations non labored, breath sounds equal Chest wall: no deformity,moderatetenderne ss lower rib cage anteriorly Gastrointestinal: soft, non distended, no tenderness, no guarding Extremities: no deformity, no trauma Neurological: Alert and oriented, speech normal, no focal neuro deficits Psychiatric: cooperative, affect appropriate for age, Medical Decision Making MEDICAL DECISION MAKING Number and Complexity of Problems Differential Diagnosis: [] [facility] Data External documents reviewed: [] My EKG interpretation: [] My CT interpretation: [] My X-ray interpretation: [] My Ultrasound interpretation: [] Decision rules/scores evaluated: [] Discussed with: [] Treatment and Disposition ED Course: The patient presented with rib pain. She said the Percocet has not helped the pain. She is diagnosed with fractured rib yesterday. The patient states she has been holding the urine because she cannot push due to the pain. The patient was able to urinate in the emergency room. The urine shows no infection. Bladder scan shows less than 50 mL of urine. The patient was given morphine IM and her pain improved. Will discharge patient home she will continue the Percocet as prescribed. She will follow-up with primary care and instructed to use the incentive spirometry and return to the emergency room if her pain gets worse, fever, shortness of breath or any new symptoms. Shared decision making: [] Code status: [] Assessment/Plan 1. Fracture of rib of right side (S22.31XA: Fracture of one rib, right side, initial encounter for closed fracture) Orders: morphine, 4 mg = 1 mL, Injection, IntraMuscular, Once, Stop date 07/25/24 10:07:00 EST, STAT, Start date 07/25/24 10:07:00 EST, 07/25/24 10:07:00 EST Bladder Scan UA with Cult Rflx Medications Administered Given morphine 4 mg/mL Inj, 4 mg, IntraMuscular Disposition Plan Patient Discharge Condition Stable, improved Discharge Disposition Discharge home Discharge Prescription List Prescriptions No active prescription medications Follow-up With When Contact Information AZUL VITA In 3 days 07/28/[address] [place] [address] [address] [place] [phone] Business (1) Additional Instructions: Continue Percocet that was prescribed to you yesterday. Make sure to follow-up with your primary doctor as discussed. Continue the incentive spirometry every 2 hours as instructed. Return to the emergency room if your pain gets worse, shortness of breath, fever or any new symptoms. Patient Education Rib Fracture Problem List/Past Medical History Ongoing Acute UTI [...] chronic kidney disease Thyroid nodule Urinary retention Urinary retention with incomplete bladder emptying Vitamin D deficiency Historical Accidental fall Agent [place] ASTHMA Benzodiazepine withdrawal Bipolar disorder Callus of foot Cerebral hemorrhage chr (more content not included)... Normal [facility] Comment on above: Result Comment: Elec tronically Signed By: Didier Hooks M.D. H\.br\Date and Time Signed: 07/25/24 18:29 EST ED Patient Summaryon 025 ED Patient Summary ED Patient Summary [address] [address] Patient Discharge Instructions Person Information Name: MAEGAN DYE Age: 74 Years Arrival Date: 07/25/2024 09:26:19 Discharge Diagnosis: 1:Fracture of rib of right side Primary Care Physician: AZUL GORMAN CNP Provider Information Primary Provider: Didier Hooks M.D. [employer] Operator Vertical:None The exam and treatment you received in the Emergency Department were for an urgent problem and are not intended as complete care. It is important that you follow up with a doctor, nurse practitioner, or physician???s assistant executive housekeeper for ongoing care. If your symptoms become worse or you do not improve as expected and you are unable to reach your usual health care provider, you should return to the Emergency Department. We are available 24 hours a day. MAEGAN DYE has been given the following list of patient education materials, prescriptions and follow-up instructions: Follow-up Instructions: With: Address: When: [address] [place] [address] Business (1) In 3 days 07/28/2024 Comments: Continue Percocet that was prescribed to you yesterday. Make sure to follow-up with your primary doctor as discussed. Continue the incentive spirometry every 2 hours as instructed. Return to the emergency room if your pain gets worse, shortness of breath, fever or any new symptoms. In the event that this physician does not participate in your insurance network, please consult with your insurance company to find a nearby participating provider. Patient Education Materials: Rib Fracture A MESSAGE TO ALL PATIENTS REGARDING OPIOIDS PRESCRIPTION OPIOIDS: WHAT YOU NEED TO KNOW Prescription opioids can be used to help relieve znbgwsyv-pu-kqthop pain and are often prescribed following a [...] as well, even when taken as directed: ??? Tolerance???meaning you might need to take more of the medication for the same pain relief ??? Physical dependence???meaning you have symptoms of withdrawal when a medication is stopped ??? Increased sensitivity to pain ??? Constipation ??? Nausea, vomiting, and dry mouth ??? Sleepiness and dizziness ??? Confusion ??? Depression ??? Low levels of testosterone that can result in lower sex drive, energy, and strength ??? Itching and sweating RISKS ARE GREATER WITH: ??? History of drug misuse, substance use disorder, or overdose ??? Mental health conditions (such as depression or anxiety) ??? Sleep apnea ??? Older age (65 years and older) ??? Avoid alcohol while taking prescription opioids. Also, unless specifically advised by your health care provider, medications to avoid include: ??? Benzodiazepines (such as Xanax or Valium) ??? Muscle relaxants (such as Soma or Flexeril) ??? Hypnotics (such as Ambien or Lunesta) ??? Other prescription opioids KNOW YOUR OPTIONS Talk to your health care provider about ways to manage your pain that don???t involve prescription opioids. Some of these options may actually work better and have fewer risks and side effects. Options may include: ??? Pain relievers such as acetaminophen, ibuprofen, and naproxen ??? Some medication that are also used for depression or seizures ??? Physical therapy and exercise ??? Cognitive behavioral therapy, a psychological, goal-directed approach, in which patients learn how to modify physical, behavioral, and emotional triggers of pain and stress. IF YOU ARE PRESCRIBED OPIOIDS FOR PAIN: ??? Never take opioids in greater amounts or more often than prescribed. ??? Follow up with your primary health care provider. o Work together to create a plan on how to manage your pain. o Talk about ways to help manage your pain that don???t involve prescription opioids. o Talk about any and all concerns and side effects. ??? Help prevent misuse and abuse o Never sell or share prescription opioids. o Never use another person???s prescription opioids. ??? Store prescription opioids in a secure place and out of reach of others (this may include visitors, children, friends, and family). ??? Safely dispose of unused prescription opioids: Find your community drug take-back program or your pharmacy mail-back program, or flush them down the toilet, (more content not included)... Normal [facility] UA with Cult Rflxon 07-26-19 25 Bilirubin Ql (U) Negative Normal Negative [facility] Comment on above: Performed By: #### 4 [id number] #### [facility] [address] [place] [address] Clarity (U) Clear Normal Clear [facility] Comment on above: Performed By: #### 4 [id number] #### [facility] [address] [place] [address] Color (U) Colorless Abnormal Yellow [facility] Comment on above: Result Comment: Micr oscopic readings are only performed on those samples that meet specific criteria set forth by [facility]. Performed By: #### 4 [id number] #### [facility] [address] [place] [address] Glucose Ql (U) Negative Normal Negative [facility] Comment on above: Performed By: #### 4 [id number] #### [facility] [address] [place] [address] Hemoglobin Auto test strip (U) [Mass/Vol] Negative Normal Negative [facility] Comment on above: Performed By: #### 4 [id number] #### [facility] [address] [place] [address] Ketones Auto test strip Ql (U) Negative Normal Negative [facility] Comment on above: Performed By: #### 4 [id number] #### [facility] [address] [place] [address] Leukocyte esterase Auto test strip Ql (U) Negative Normal Negative [facility] Comment on above: Performed By: #### 4 [id number] #### [facility] [address] [place] [address] Nitrite Auto test strip Ql (U) Negative Normal Negative [facility] Comment on above: Performed By: #### 4 [id number] #### [facility] [address] [place] [address] pH (U) 7.0 [pH] Invalid Interpretation Code 5.0-9.0 [facility] Comment on above: Performed By: #### 4 [id number] #### [facility] [address] [place] [address] Protein Ql (U) Negative Normal Negative [facility] Comment on above: Performed By: #### 4 [id number] #### [facility] [address] [place] [address] Specific gravity (U) [Rel density] 1.005 Invalid Interpretation Code 1.005-1.03 0 [facility] Comment on above: Performed By: #### 4 [id number] #### [facility] [address] [place] [address] Urobilinogen (U) [Mass/Vol] Negative Normal Negative [facility] Comment on above: Performed By: #### 4 [id number] #### [facility] [address] [place] [address] Type of Urine collection method Clean Catch Normal [facility] Comment on above: Performed By: #### 4 [id number] #### [facility] [address] [place] [address] URINALYSISOrdered By: SYSTEM SYSTEM on 07-25-2024 Bilirubin Ql (U) Negative Normal Negativemg /dL [facility] UA Auto SS Clarity (U) Clear (07/25/24 10:21 AM) Normal Clear [facility] UA Auto SS Color (U) Colorless 1 *ABN* (07/25/24 10:21 AM) Invalid Interpretation Code Yellow [facility] UA Auto SS Comment on above: Interpretive Data: M icroscopic readings are only performed on those samples that meet specific criteria set forth by [facility]. Glucose Ql (U) Negative Normal Negativemg /dL [facility] UA Auto SS Hemoglobin Auto test strip (U) [Mass/Vol] Negative Normal Negativemg /dL [facility] UA Auto SS Ketones Auto test strip Ql (U) Negative Normal Negativemg /dL [facility] UA Auto SS Leukocyte esterase Auto test strip Ql (U) Negative Normal NegativeLe u/uL [facility] UA Auto SS Nitrite Auto test strip Ql (U) Negative Normal Negativemg /dL [facility] UA Auto SS pH (U) 7.0 *NA* (07/25/24 10:21 AM) Invalid Interpretation Code 5.0 - 9.0 [facility] UA Auto SS Protein Ql (U) Negative Normal Negativemg /dL [facility] UA Auto SS Specific gravity (U) [Rel density] 1.005 *NA* (07/25/24 10:21 AM) Invalid Interpretation Code 1.005 - 1.030 [facility] UA Auto SS Urobilinogen (U) [Mass/Vol] Negative Normal Negativemg /dL [facility] UA Auto SS URINALYSISOrdered By: Didier Hooks on 07-25-2024 UA Spec Desc Clean Catch (07/25/24 10:21 AM) Normal [facility] UA Auto SS ED Clinical Summaryon 2024 ED Clinical Summary ED Clinical Summary [place] [id number] ED Clinical Summary Person Information Name: MAEGAN DYE/[facility] Age: 74 Years : 1950 Sex: Female Language: Dutch PCP: AZUL GORMAN CNP Marital Status: Visit Id: Visit Reason: Rib/trunk pain-swelling; RIB PAIN Speciality: Acuity: 4 Enc Type: Emergency Med Service: Emergency Arrival: 07/24/2024 08:42:29 Discharge: 07/24/2024 10:03:09 LOS: 000 01:21 Checkin: 07/24/2024 08:42:29 Checkout: 07/24/2024 10:03:09 Dispo Type: Home (Routine DC) EVENTS: Event Name Event Status Request Date/Time Start Date/Time Complete Date/Time Arrive Complete 07/24/2024 08:42:29 07/24/2024 08:42:29 07/24/2024 08:42:29 Document Home Meds Request 07/24/2024 08:42:29 Triage Complete 07/24/2024 08:42:29 07/24/2024 08:55:17 07/24/2024 08:55:17 Bed Assign Complete 07/24/2024 08:44:50 07/24/2024 08:44:50 07/24/2024 08:44:50 Dr Exam Complete 07/24/2024 08:44:50 07/24/2024 08:45:39 07/24/2024 08:45:39 RN Exam Complete 07/24/2024 08:44:50 07/24/2024 08:59:44 07/24/2024 08:59:44 Registration Complete 07/24/2024 08:45:39 07/24/2024 08:46:07 07/24/2024 08:47:05 Dr Exam Complete 07/24/2024 08:46:06 07/24/2024 08:46:06 07/24/2024 08:46:06 Reg Complete Request 07/24/2024 08:47:05 Isolation Screening Request 07/24/2024 08:55:18 X-Ray Complete 07/24/2024 08:56:16 07/24/2024 09:05:17 07/24/2024 09:24:12 Meds Admin Complete 07/24/2024 09:19:04 07/24/2024 09:40:44 Wet Read Complete 07/24/2024 09:24:12 07/24/2024 09:24:33 07/24/2024 09:24:33 Reg Bed Request Complete 07/24/2024 09:40:43 07/24/2024 09:40:43 07/24/2024 09:40:43 Discharge Complete 07/24/2024 09:41:40 07/24/2024 10:03:18 07/24/2024 10:03:18 Transfer Complete 07/24/2024 10:03:18 07/24/2024 10:03:18 07/24/2024 10:03:18 ADDRESS: [address] [facility] [id number] PHYS DOC NOTES: MEDICAL INFORMATION: Prescriptions Given: New Medications [facility]/pharmacy #[id number], [address] [place], [place] [id number], [phone] acetaminophen-oxycodone (Percocet 5 mg-325 mg oral tablet) 1 Tablets By Mouth every 6 hours as needed as needed for pain for 3 Days. Refills: 0. Medications to Continue with No Changes Other Medications amlodipine (amLODIPine 5 mg Tab) 1 Tablets By Mouth every day. TAKE 1 TABLET BY MOUTH EVERY DAY. celecoxib (celecoxib 200 mg Cap) TAKE 1 CAPSULE BY MOUTH EVERY DAY. clonazepam (clonazepam 1 mg Tab) 1 Tablets By Mouth 3 times a day. TAKE 1 TABLET BY MOUTH THREE TIMES A DAY NEEDED FOR ANXIETY. Refills: 0. docusate (Colace 100 mg Cap) 1 Capsules By Mouth 2 times a day. Hold for diarrhea. Refills: 0. docusate (Colace 100 mg Cap) 1 Capsules By Mouth 2 times a day. Refills: 0. Ensure (Ensure Vanilla) Drink 1 bottle (8 fl. oz.) BID. Refills: 5. fluticasone nasal (fluticasone 0.05 mg/inh Nasal [place]) 2 Sprays Nasal Inhalation every day. each nostril. Refills: 5. loratadine (loratadine 10 mg oral capsule) 1 Capsules By Mouth every day. [facility] Prescription (Walker) Dispense one walker. Refills: 0. olanzapine (olanzapine 7.5 mg oral tablet) 1 Tablets By Mouth once a day (at bedtime). ondansetron (ondansetron 4 mg Dis Tab) 1 Tablets By Mouth every 6 hours as needed Nausea/Vomiting. Refills: 0. ondansetron (ondansetron 4 mg Dis [...] packet) 17 Gram By Mouth every day. polyethylene glycol 3350 (Miralax 3350 17 gram packet) 17 Gram By Mouth every day. Refills: 0. potassium chloride (potassium chloride 10 mEq Cap-ER) 1 Capsules By Mouth every other day. Refills: 2. sodium chloride 2 gram By Mouth 3 times a day. sulfamethoxazole-trimethop rim (sulfamethoxazole-trimetho prim 400 mg-80 mg Tab) trazodone (traZODONE 150 mg Tab) 1 Tablets By Mouth once a day (at bedtime). Do not give with clonazepam. Refills: 3. PATIENT EDUCATION INFORMATION: Instructions: Rib Fracture Follow up: With: Address: When: [place] [address] Business (1) In 3 days 07/27/2024 DIAGNOSIS: Rib fracture Normal [facility] ED Patient Summaryon 025 ED Patient Summary ED Patient Summary [address] [address] Patient Discharge Instructions Person Information Name: MAEGAN DYE Age: 74 Years Arrival Date: 07/24/2024 08:42:29 Discharge Diagnosis: Rib fracture Primary Care Physician: AZUL GORMAN CNP Provider Information Primary Provider: Chandan Adhikari DO [employer] Vertical:Malick Ho PA-C The exam and treatment you received in the Emergency Department were for an urgent problem and are not intended as complete care. It is important that you follow up with a doctor, nurse practitioner, or physician???s assistant executive housekeeper for ongoing care. If your symptoms become worse or you do not improve as expected and you are unable to reach your usual health care provider, you should return to the Emergency Department. We are available 24 hours a day. MAEGAN DYE has been given the following list of patient education materials, prescriptions and follow-up instructions: Follow-up Instructions: With: Address: When: [place] [address] Business (1) In 3 days 07/27/2024 In the event that this physician does not participate in your insurance network, please consult with your insurance company to find a nearby participating provider. Patient Education Materials: Rib Fracture A MESSAGE TO ALL PATIENTS REGARDING OPIOIDS PRESCRIPTION OPIOIDS: WHAT YOU NEED TO KNOW Prescription opioids can be used to help relieve hhdaglyu-gm-jdoudb pain and are often prescribed following a [...] as well, even when taken as directed: ??? Tolerance???meaning you might need to take more of the medication for the same pain relief ??? Physical dependence???meaning you have symptoms of withdrawal when a medication is stopped ??? Increased sensitivity to pain ??? Constipation ??? Nausea, vomiting, and dry mouth ??? Sleepiness and dizziness ??? Confusion ??? Depression ??? Low levels of testosterone that can result in lower sex drive, energy, and strength ??? Itching and sweating RISKS ARE GREATER WITH: ??? History of drug misuse, substance use disorder, or overdose ??? Mental health conditions (such as depression or anxiety) ??? Sleep apnea ??? Older age (65 years and older) ??? Avoid alcohol while taking prescription opioids. Also, unless specifically advised by your health care provider, medications to avoid include: ??? Benzodiazepines (such as Xanax or Valium) ??? Muscle relaxants (such as Soma or Flexeril) ??? Hypnotics (such as Ambien or Lunesta) ??? Other prescription opioids KNOW YOUR OPTIONS Talk to your health care provider about ways to manage your pain that don???t involve prescription opioids. Some of these options may actually work better and have fewer risks and side effects. Options may include: ??? Pain relievers such as acetaminophen, ibuprofen, and naproxen ??? Some medication that are also used for depression or seizures ??? Physical therapy and exercise ??? Cognitive behavioral therapy, a psychological, goal-directed approach, in which patients learn how to modify physical, behavioral, and emotional triggers of pain and stress. IF YOU ARE PRESCRIBED OPIOIDS FOR PAIN: ??? Never take opioids in greater amounts or more often than prescribed. ??? Follow up with your primary health care provider. o Work together to create a plan on how to manage your pain. o Talk about ways to help manage your pain that don???t involve prescription opioids. o Talk about any and all concerns and side effects. ??? Help prevent misuse and abuse o Never sell or share prescription opioids. o Never use another person???s prescription opioids. ??? Store prescription opioids in a secure place and out of reach of others (this may include visitors, children, friends, and family). ??? Safely dispose of unused prescription opioids: Find your community drug take-back program or your pharmacy mail-back program, or flush them down the toilet, following guidance from the Food and Drug Administration (www.fda.gov/Drugs/Resourc esForYou). ??? Visit www.cdc.gov/drugoverdose to learn about the risks of opioids abuse and overdose. ??? If you believe you may be struggling with addiction, tell your health health care aide and ask for guidance o (more content not included)... Normal [facility] XR Ribs Unilat 3 Views Right w/ PA Cheston 07-24-2024 XR Ribs Unilat 3 Views Right w/ PA Chest Exam Date/Time: 07/24/2024 09:24 EST Reason for Exam: Pain, Traumatic Report IMPRESSION: Possibly recent nondisplaced fracture involving the right seventh rib. Other areas of cortical irregularity involving some adjacent right-sided ribs, age-indeterminate, probably chronic. No displaced rib fracture. No pneumothorax. EXAMINATION/TECHNIQUE: XR Ribs Unilat 3 Views Right w/ PA Chest HISTORY: Right-sided rib pain. COMPARISON: 05/16/2024. RESULT: No consolidation. No pleural effusion. No pneumothorax. Hyperinflated lungs. Normal pulmonary vascular pattern. Stable cardiomediastinal silhouette. Subtle irregularity involving the right sixth rib, probably chronic. Nondisplaced fracture involving the right seventh rib, possibly recent. Few other areas of irregularity involving some lower right-sided ribs without displacement, probably chronic. Degenerative changes within the spine. IVC filter within the abdomen. No other significant abnormality. Ordering Provider: Malick Ho FINAL REPORT Dictated: 07/24/2024 9:30 am Isai Jackson MD Signed (Electronic Signature): 07/24/2024 9:30 am Signed by: Isai Jackson MD Transcribed by: GLORIA Technologist: JASON Normal [facility] BMPon 07-20-2024 Anion gap [Moles/Vol] 11 mmol/L Normal 6-16 [facility] Comment on above: Performed By: #### 2 [id number] #### [facility] [address] [place] [address] Calcium [Mass/Vol] 9.2 mg/dL Normal 8.9-11.1 [facility] Comment on above: Performed By: #### 2 [id number] #### [facility] [address] [place] [address] Chloride [Moles/Vol] 97 mmol/L Low 101-111 [facility] Comment on above: Performed By: #### 2 [id number] #### [facility] [address] [place] [address] CO2 [Moles/Vol] 29 mmol/L Normal 21-31 [facility] Comment on above: Performed By: #### 2 [id number] #### [facility] [address] [place] [address] Creatinine [Mass/Vol] 0.9 mg/dL Normal 0.5-1.3 [facility] Comment on above: Performed By: #### 2 [id number] #### [facility] [address] [place] [address] Glucose [Mass/Vol] 99 mg/dL Normal 55-199 [facility] Comment on above: Performed By: #### 2 [id number] #### [facility] [address] [place] [address] Potassium [Moles/Vol] 4.0 mmol/L Normal 3.5-5.3 [facility] Comment on above: Performed By: #### 2 [id number] #### [facility] [address] [place] [address] Sodium [Moles/Vol] 133 mmol/L Low 135-145 [facility] Comment on above: Performed By: #### 2 [id number] #### [facility] [address] [place] [address] Urea nitrogen [Mass/Vol] 13 mg/dL Normal 5-21 [facility] Comment on above: Performed By: #### 2 [id number] #### [facility] [address] [place] [address] Urea nitrogen/Creatinine [Mass ratio] 14 No Units Normal 10-20 [facility] Comment on above: Performed By: #### 2 [id number] #### [facility] [address] [place] [address]55 CBC w/ Auto Diffon 07-20- 5 Basophils/100 WBC (Bld) 0.8 % Normal 0.0-2.0 [facility] Comment on above: Performed By: #### 2 [id number] #### [facility] [address] [place] [address]3023 Basophils/Leukocytes Auto (Bld) [Pure # fraction] 0.0 E9/L Normal 0.0-0.2 [facility] Comment on above: Performed By: #### 2 [id number] #### [facility] [address] [place] [address] 71713 Eosinophils (Bld) [#/Vol] 0.2 E9/L Normal 0.0-0.5 [facility] Comment on above: Performed By: #### 2 [id number] #### [facility] [address] [place] [address]82 Eosinophils/100 WBC (Bld) 2.9 % Normal 0.0-8.0 [facility] Comment on above: Performed By: #### 2 [id number] #### [facility] [address] [place] [address] 58886 Erythrocyte distribution width (RBC) [Ratio] 13.8 % Normal 10.9-14.2 [facility] Comment on above: Performed By: #### 2 [id number] #### [facility] [address] [place] [address]00 Hematocrit (Bld) [Volume fraction] 38.9 % Normal 34.0-46.0 [facility] Comment on above: Performed By: #### 2 [id number] #### [facility] [address] [place] [address]152 Hemoglobin (Bld) [Mass/Vol] 13.0 g/dL Normal 12.0-16.0 [facility] Comment on above: Performed By: #### 2 [id number] #### [facility] [address] [place] [address] Lymphocytes (Bld) [#/Vol] 1.4 E9/L Normal 1.0-4.0 [facility] Comment on above: Performed By: #### 2 [id number] #### [facility] [address] [place] [address] Lymphocytes/100 WBC (Bld) 25.2 % Normal 14.0-50.0 [facility] Comment on above: Performed By: #### 2 [id number] #### [facility] [address] [place] [address] MCH (RBC) [Entitic mass] 29.4 pg Normal 27.0-34.0 [facility] Comment on above: Performed By: #### 2 [id number] #### [facility] [address] [place] [address] MCHC (RBC) [Mass/Vol] 33.3 g/dL Normal 31.4-36.0 [facility] Comment on above: Performed By: #### 2 [id number] #### [facility] [address] [place] [address] MCV (RBC) [Entitic vol] 88.4 fL Normal 80.0-100.0 [facility] Comment on above: Performed By: #### 2 [id number] #### [facility] [address] [place] [address] Monocytes (Bld) [#/Vol] 0.6 E9/L Normal 0.2-1.0 [facility] Comment on above: Performed By: #### 2 [id number] #### [facility] [address] [place] [address] Neutrophils (Bld) [#/Vol] 3.5 E9/L Normal 2.0-7.5 [facility] Comment on above: Performed By: #### 2 [id number] #### [facility] [address] [place] [address] Neutrophils/100 WBC (Bld) 61.1 % Normal 36.0-75.0 [facility] Comment on above: Performed By: #### 2 [id number] #### [facility] [address] [place] [address] Platelet mean volume (Bld) [Entitic vol] 7.0 fL Normal 6.4-10.8 [facility] Comment on above: Performed By: #### 2 [id number] #### [facility] [address] [place] [address] Platelets (Bld) [#/Vol] 244.0 E9/L Normal 150.0-500. 0 [facility] Comment on above: Performed By: #### 2 [id number] #### [facility] [address] [place] [address] RBC (Bld) [#/Vol] 4.4 E12/L Normal 4.3-5.9 [facility] Comment on above: Performed By: #### 2 [id number] #### [facility] [address] [place] [address] WBC corrected for nucl RBC Auto (Bld) [#/Vol] 5.7 E9/L Normal 4.0-11.0 [facility] Comment on above: Performed By: #### 2 [id number] #### [facility] [address] [place] [address] CHEMISTRYOrdered By: SYSTEM SYSTEM on 07-20-2024 Albumin [Mass/Vol] 4.0 g/dL Normal 3.3 - 5.0 gm/dL Rem[facility] Albumin/Globulin [Mass ratio] 1.6 {ratio} Normal 1.1 - 2.2 [facility] ALP [Catalytic activity/Vol] 74 [iU]/d Normal 21 - 98 Int._Unit/ L [facility] ALT No additional P-5'-P [Catalytic activity/Vol] 9 [iU]/d Normal 6 - 46 Int._Unit/ L [facility] Anion gap [Moles/Vol] 11 mmol/L Normal 6 - 16 mEq/L [facility] AST [Catalytic activity/Vol] 19 [iU]/d Normal 5 - 43 Int._Unit/ L [facility] Bilirubin [Mass/Vol] 0.4 mg/dL Normal 0.0 - 1 .1 mg/dL [facility] Bilirubin.direct [Mass/Vol] 0.0 mg/dL Normal 0.0 - 0.4 mg/dL Rem[facility] Bilirubin.indirect [Mass or moles/Vol] 0.4 mg/dL Normal 0.1 - 0.9 mg/dL [facility] Calcium [Mass/Vol] 9.2 mg/dL Normal 8.9 - 11. 1 mg/dL [facility] Chloride [Moles/Vol] 97 mmol/L Low 101 - 1 11 mmol/L [facility] CO2 [Moles/Vol] 29 mmol/L Normal 21 - 31 mmol/L [facility] Creatinine [Mass/Vol] 0.9 mg/dL Normal 0.5 - 1.3 mg/dL [facility] eGFR 66 mL/min/1.73 m2 Normal >=59mL/min /1.73 m2 [facility] Globulin (S) [Mass/Vol] 2.5 g/dL Normal 1.4 - 4.0 gm/dL [facility] Glucose [Mass/Vol] 99 mg/dL Normal 55 - 199 mg/dL [facility] Lipase [Catalytic activity/Vol] 25 U/L Normal 13 - 58 unit/L [facility] Potassium [Moles/Vol] 4.0 mmol/L Normal 3.5 - 5.3 mmol/L [facility] Protein [Mass/Vol] 6.5 g/dL Normal 6.0 - 7.8 gm/dL [facility] Sodium [Moles/Vol] 133 mmol/L Low 135 - 145 mmol/L [facility] Urea nitrogen [Mass/Vol] 13 mg/dL Normal 5 - 21 mg/dL [facility] Urea nitrogen/Creatinine [Mass ratio] 14 mg/mg Normal 10 - 20 [facility] CHEMISTRYOrdered By: Lilibeth Garcia on 07-20-2024 Troponin HS pg/mL Low 10.10 - 27.10 pg/mL [facility] Comment on above: Interpretive Data: T he 95% CI (Confidence Interval) PPV (Positive Predictive Value) for myocardial infarction in females is 38 pg/mL, in males 51 pg/mL. The results should be used in conjunction with clinical conditions of myocardial infarction. (Access High Sensitivity Troponin I Instructions For Use, Siobhan Prashant, December 2017) CT Abdomen/Pelvis w/ Contras ton 07-20-2024 CT Abdomen/Pelvis w/ Contrast Exam Date/Time: 07/20/2024 06:24 EST Reason for Exam: ABDOMINAL PAIN, ACUTE, NONLOCALIZED;Other (please specify) Report IMPRESSION: NO ACUTE INTRA-ABDOMINAL PROCESS OR SIGNIFICANT CHANGE FROM 07/04/2024 IDENTIFIED. EXAM: CT Abdomen/Pelvis w/ Contrast DATE: 07/20/2024 6:19 AM CLINICAL HISTORY: ABDOMINAL PAIN, ACUTE, NONLOCALIZED. COMPARISON: 07/04/2024. TECHNIQUE: Spiral imaging was obtained of the abdomen and pelvis after the uneventful infusion of intravenous contrast. All CT scans at this facility use dose modulation, iterative reconstruction, and/or weight based dosing when appropriate to reduce radiation dose to as low as reasonably achievable. Unless otherwise stated, incidental findings identified in this report do not require routine follow-up imaging. FINDINGS: There is no abnormal bowel dilatation, ascites, organized fluid collections, or significant change from 07/04/2024 identified. Postoperative changes from previous cholecystectomy, IVC filter placement, left iliac vein stents, an implanted infusion pump, and left hip hemiarthroplasty are again noted. Other previously described and chronic findings appear unchanged. The visualized lung bases are clear. Ordering Provider: Johny Willson FINAL REPORT Dictated: 07/20/2024 7:19 am Parmjit Fong MD Signed (Electronic Signature): 07/20/2024 7:19 am Signed by: Parmjit Fong MD Transcribed by: GLORIA Technologist: MIKO Aranda [facility] ED Clinical Summaryon 2024 ED Clinical Summary ED Clinical Summary [place] [address] ED Clinical Summary Person Information Name: MAEGAN DYE/[facility] Age: 74 Years : 1950 Sex: Female Language: Dutch PCP: AZUL GORMAN CNP Marital Status: Visit Id: Visit Reason: Urinary retention; Dysuria; Abdominal pain; URINARY/STOMACH PAIN Speciality: Acuity: 3 Enc Type: Emergency Med Service: Emergency Arrival: 07/20/2024 04:44:19 Discharge: 07/20/2024 07:51:21 LOS: 000 03:07 Checkin: 07/20/2024 04:44:19 Checkout: 07/20/2024 07:51:21 Dispo Type: Home (Routine DC) EVENTS: Event Name Event Status Request Date/Time Start Date/Time Complete Date/Time Arrive Complete 07/20/2024 04:44:19 07/20/2024 04:44:19 07/20/2024 04:44:19 Document Home Meds Request 07/20/2024 04:44:19 Triage Complete 07/20/2024 04:44:19 07/20/2024 04:57:06 07/20/2024 04:57:06 Registration Complete 07/20/2024 04:50:18 07/20/2024 04:50:18 07/20/2024 04:50:18 Reg Complete Request 07/20/2024 04:50:18 Reg Bed Request Complete 07/20/2024 04:50:18 07/20/2024 04:50:18 07/20/2024 04:50:18 Bed Assign Complete 07/20/2024 04:55:07 07/20/2024 04:55:07 07/20/2024 04:55:07 Dr Exam Complete 07/20/2024 04:55:07 07/20/2024 05:04:23 07/20/2024 05:04:23 RN Exam Complete 07/20/2024 04:55:07 07/20/2024 05:10:38 07/20/2024 05:10:38 Isolation Screening Request 07/20/2024 04:57:07 Registration Start 07/20/2024 05:04:23 07/20/2024 05:14:59 EKG Complete 07/20/2024 05:08:45 07/20/2024 05:24:17 CT Complete 07/20/2024 05:08:45 07/20/2024 06:19:29 07/20/2024 06:24:18 Pending Labs Complete 07/20/2024 05:08:45 07/20/2024 06:24:30 Lab Complete 07/20/2024 05:08:45 07/20/2024 06:10:08 Pending Labs Complete 07/20/2024 05:43:51 07/20/2024 05:43:51 07/20/2024 06:10:08 Lab Complete 07/20/2024 05:43:51 07/20/2024 05:43:51 07/20/2024 06:10:08 Pending Labs Complete 07/20/2024 06:02:35 07/20/2024 06:02:35 07/20/2024 06:02:35 Pending Labs Complete 07/20/2024 06:04:03 07/20/2024 06:04:03 07/20/2024 06:04:03 Dr Exam Complete 07/20/2024 07:24:48 07/20/2024 07:24:48 07/20/2024 07:24:48 Discharge Complete 07/20/2024 07:35:15 07/20/2024 07:51:28 07/20/2024 07:51:28 Transfer Complete 07/20/2024 07:51:29 07/20/2024 07:51:29 07/20/2024 07:51:29 ADDRESS: [address] [place] [address] [address] [facility] [id number] [facility] DOC NOTES: Addendum by Malick Ho PA-C on July 20, 2024 07:25:32 EST MEDICAL INFORMATION: Prescriptions Given: Medications to Continue with No Changes Other Medications amlodipine (amLODIPine 5 mg Tab) 1 Tablets By Mouth every day. TAKE 1 TABLET BY MOUTH EVERY DAY. celecoxib (celecoxib 200 mg Cap) TAKE 1 CAPSULE BY MOUTH EVERY DAY. clonazepam (clonazepam 1 mg Tab) 1 Tablets By Mouth 3 times a day. TAKE 1 TABLET BY MOUTH THREE TIMES A DAY NEEDED FOR ANXIETY. Refills: 0. docusate (Colace 100 mg Cap) 1 Capsules By Mouth 2 times a day. Hold for diarrhea. Refills: 0. docusate (Colace 100 mg Cap) 1 Capsules By Mouth 2 times a day. Refills: 0. Ensure (Ensure Vanilla) Drink 1 bottle (8 fl. oz.) BID. Refills: 5. fluticasone nasal (fluticasone 0.05 mg/inh Nasal [place]) 2 Sprays Nasal Inhalation every day. each nostril. Refills: 5. loratadine (loratadine 10 mg oral capsule) 1 Capsules By Mouth every day. [facility] Prescription (Walker) Dispense one walker. Refills: 0. olanzapine (olanzapine 7.5 mg oral tablet) 1 Tablets By Mouth once a day (at bedtime). ondansetron (ondansetron 4 mg Dis Tab) 1 Tablets By Mouth every 6 hours as needed Nausea/Vomiting. Refills: 0. ondansetron (ondansetron 4 mg Dis [...] packet) 17 Gram By Mouth every day. polyethylene glycol 3350 (Miralax 3350 17 gram packet) 17 Gram By Mouth every day. Refills: 0. potassium chloride (potassium chloride 10 mEq Cap-ER) 1 Capsules By Mouth every other day. Refills: 2. sodium chloride 2 gram By Mouth 3 times a day. sulfamethoxazole-trimethop rim (sulfamethoxazole-trimetho prim 400 mg-80 mg Tab) trazodone (traZODONE 150 mg Tab) 1 Tablets By Mouth once a day (at bedtime). Do not give with clonazepam. Refills: 3. PATIENT EDUCATION INFORMATION: Instructions: Abdominal Pain, Adult Follow up: With: Address: When: AZUL Cortez [facility] [place] [address] Business (1) In 3 days 07/23/2024 DIAGNOSIS: Acute upper abdominal pain Normal [facility] ED Note-Physicianon 07-20-19 ED Note-Physician ED Note-Physician Basic Information Time Seen: Johny Willson DO 07/20/2024 05:04 Chief Complaint complains of chronic abd pain and urinary discomfort. History of Present Illness 74-year-old female to the emergency department with chief complaint of upper abdominal pain. Patient reports this is been ongoing for 3 days. She reports some mild nausea. She denies any vomiting. She denies any diarrhea. She reports some urinary discomfort which is chronic. She denies any fever, sweats, chills. Review of Systems A 10 point review of systems is negative except as noted above. Medical and Surgical History: Reviewed and noted Social history: Lives at home Tobacco: Denies Physical Exam Vitals & Measurements T: 36.5 ???C(Oral) HR: 90(Peripheral) RR: 16 BP: 138/73 SpO2: 96% HT: 154 cm WT: 62 kg BMI: 26.14 VITALS: I have reviewed the triage vital signs. GENERAL: Well developed, well appearing adult in no acute distress. NEURO: Alert and oriented. Moves all extremities. Face is symmetric and expressive. EYES: PERRL. No scleral icterus or conjunctival injection. No discharge. HENT: Normocephalic, atraumatic. Hearing is grossly intact. Nares grossly patent and without discharge. Mucous membranes moist. NECK: No JVD. Patient moves neck without restriction. CARDIO: Rhythm regular. Normal rate. No murmur, rub, or gallop. Pulses equal bilaterally in the upper and lower extremity. No lower extremity edema. PULM: Lungs clear to auscultation in all cutler. No wheezes, rales, or rhonchi. No conversational dyspnea. No splinting, stridor, or accessory muscle use. GI/: Abdomen is soft. Right upper quadrant tenderness. Normoactive bowel sounds. EXTREMITIES: Symmetric muscle bulk. No joint swelling. No clubbing, cyanosis, or deformity. SKIN: Warm and dry. Normal turgor. No rash or lesions appreciated. PSYCH: Mood, affect, and interaction is appropriate to the setting. Medical Decision Making 74-year-old female to the emergency department with chief complaint of upper abdominal pain. Vital stable, the patient is afebrile. Patient has a longstanding history of chronic lower abdominal pain. This is different. Care was signed out to Dr. Coates with results of CT imaging and diagnostic workup pending. Assessment/Plan Acute upper abdominal pain (R10.10: Upper abdominal pain, unspecified) Orders: Basic Metabolic Panel CBC w/ Auto Diff CT Abdomen/Pelvis w/ Contrast ECG 12 Lead Adult eGFR Extra Blue Tube Extra SST Tube Hepatic Function Panel Lipase Level Troponin 0 Hr. UA with Cult Rflx Disposition Plan Patient Discharge Condition Stable Discharge Prescription List Prescriptions No active prescription medications Follow-up No qualifying data available Problem List/Past Medical History Ongoing Acute UTI [...] chronic kidney disease Thyroid nodule Urinary retention Urinary retention with incomplete bladder emptying Vitamin D deficiency Historical Accidental fall Agent Vinson ASTHMA Benzodiazepine withdrawal Bipolar disorder Callus of [...] HTN - Hypertension Hypertension Hypo-osmolality and or hyponatremia Hypokalemia Laryngitis Left hip pain multiple broken bones Neurogenic bladder Obesity Obesity due to excess calories Oral thrush Panic disorder with agoraphobia Physical deconditioning Right foot pain Seizure Smoker Procedure/Surgical History Urodynamics (07/06/2019), cysto w/ UD (07/05/2019), left femur ORIF w femoral cortical strut graft (10/04/2016), lt bipolar hemiarthroplasty (08/30/2016), Appendectomy, Cardiovascular stress test using pharmacologic stress agent, Cataract Surgery-Bilateral Eye, section, foot surgery right, I&D, 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 Normal [facility] Comment on above: Result Comment: Elec tronically Signed By: Malick Ho PA-C\.br\Date and Time Signed: 07/20/24 07:36 EST\.br\Electronically Co-Signed By: Johny Willson DO.br\Date and Time Co-Signed: 07/22/24 20:57 EST ED Note-Physician ED Note-Physician Basic Information Time Seen: Johny Willson DO 07/20/2024 05:04 Chief Complaint complains of chronic abd pain and urinary discomfort. History of Present Illness 74-year-old female to the emergency department with chief complaint of upper abdominal pain. Patient reports this is been ongoing for 3 days. She reports some mild nausea. She denies any vomiting. She denies any diarrhea. She reports some urinary discomfort which is chronic. She denies any fever, sweats, chills. Review of Systems A 10 point review of systems is negative except as noted above. Medical and Surgical History: Reviewed and noted Social history: Lives at home Tobacco: Denies Physical Exam Vitals & Measurements T: 36.5 ???C(Oral) HR: 90(Peripheral) RR: 16 BP: 138/73 SpO2: 96% HT: 154 cm WT: 62 kg BMI: 26.14 VITALS: I have reviewed the triage vital signs. GENERAL: Well developed, well appearing adult in no acute distress. NEURO: Alert and oriented. Moves all extremities. Face is symmetric and expressive. EYES: PERRL. No scleral icterus or conjunctival injection. No discharge. HENT: Normocephalic, atraumatic. Hearing is grossly intact. Nares grossly patent and without discharge. Mucous membranes moist. NECK: No JVD. Patient moves neck without restriction. CARDIO: Rhythm regular. Normal rate. No murmur, rub, or gallop. Pulses equal bilaterally in the upper and lower extremity. No lower extremity edema. PULM: Lungs clear to auscultation in all cutler. No wheezes, rales, or rhonchi. No conversational dyspnea. No splinting, stridor, or accessory muscle use. GI/: Abdomen is soft. Right upper quadrant tenderness. Normoactive bowel sounds. EXTREMITIES: Symmetric muscle bulk. No joint swelling. No clubbing, cyanosis, or deformity. SKIN: Warm and dry. Normal turgor. No rash or lesions appreciated. PSYCH: Mood, affect, and interaction is appropriate to the setting. Medical Decision Making 74-year-old female to the emergency department with chief complaint of upper abdominal pain. Vital stable, the patient is afebrile. Patient has a longstanding history of chronic lower abdominal pain. This is different. Care was signed out to Dr. Coates with results of CT imaging and diagnostic workup pending. Assessment/Plan Acute upper abdominal pain (R10.10: Upper abdominal pain, unspecified) Orders: Basic Metabolic Panel CBC w/ Auto Diff CT Abdomen/Pelvis w/ Contrast ECG 12 Lead Adult eGFR Extra Blue Tube Extra SST Tube Hepatic Function Panel Lipase Level Troponin 0 Hr. UA with Cult Rflx Disposition Plan Patient Discharge Condition Stable Discharge Prescription List Prescriptions No active prescription medications Follow-up No qualifying data available Problem List/Past Medical History Ongoing Acute UTI [...] chronic kidney disease Thyroid nodule Urinary retention Urinary retention with incomplete bladder emptying Vitamin D deficiency Historical Accidental fall Agent Vinson ASTHMA Benzodiazepine withdrawal Bipolar disorder Callus of [...] HTN - Hypertension Hypertension Hypo-osmolality and or hyponatremia Hypokalemia Laryngitis Left hip pain multiple broken bones Neurogenic bladder Obesity Obesity due to excess calories Oral thrush Panic disorder with agoraphobia Physical deconditioning Right foot pain Seizure Smoker Procedure/Surgical History Urodynamics (07/06/2019), cysto w/ UD (07/05/2019), left femur ORIF w femoral cortical strut graft (10/04/2016), lt bipolar hemiarthroplasty (08/30/2016), Appendectomy, Cardiovascular stress test using pharmacologic stress agent, Cataract Surgery-Bilateral Eye, section, foot surgery right, I&D, 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 Normal [facility] Comment on above: Result Comment: Elec tronically Signed By: Johny Willson DO\.br\Date and Time Signed: 07/20/24 06:07 EST ED Patient Summaryon 025 ED Patient Summary ED Patient Summary [address] [address] Patient Discharge Instructions Person Information Name: MAEGAN DYE Age: 74 Years Arrival Date: 07/20/2024 04:44:19 Discharge Diagnosis: Acute upper abdominal pain Primary Care Physician: AZUL GORMAN CNP Provider Information Primary Provider: Johny Willson DO [employer] Vertical:Malick Ho PA-C The exam and treatment you received in the Emergency Department were for an urgent problem and are not intended as complete care. It is important that you follow up with a doctor, nurse practitioner, or physician???s assistant executive housekeeper for ongoing care. If your symptoms become worse or you do not improve as expected and you are unable to reach your usual health care provider, you should return to the Emergency Department. We are available 24 hours a day. MAEGAN DYE has been given the following list of patient education materials, prescriptions and follow-up instructions: Follow-up Instructions: With: Address: When: AZUL GORMAN [address] [place] [address] [place], [place] [id number] Business (1) In 3 days 07/23/2024 In the event that this physician does not participate in your insurance network, please consult with your insurance company to find a nearby participating provider. Patient Education Materials: Abdominal Pain, Adult A MESSAGE TO ALL PATIENTS REGARDING OPIOIDS PRESCRIPTION OPIOIDS: WHAT YOU NEED TO KNOW Prescription opioids can be used to help relieve [id number] pain and are often prescribed following a [...] as well, even when taken as directed: ??? Tolerance???meaning you might need to take more of the medication for the same pain relief ??? Physical dependence???meaning you have symptoms of withdrawal when a medication is stopped ??? Increased sensitivity to pain ??? Constipation ??? Nausea, vomiting, and dry mouth ??? Sleepiness and dizziness ??? Confusion ??? Depression ??? Low levels of testosterone that can result in lower sex drive, energy, and strength ??? Itching and sweating RISKS ARE GREATER WITH: ??? History of drug misuse, substance use disorder, or overdose ??? Mental health conditions (such as depression or anxiety) ??? Sleep apnea ??? Older age (65 years and older) ??? Avoid alcohol while taking prescription opioids. Also, unless specifically advised by your health care provider, medications to avoid include: ??? Benzodiazepines (such as Xanax or Valium) ??? Muscle relaxants (such as Soma or Flexeril) ??? Hypnotics (such as Ambien or Lunesta) ??? Other prescription opioids KNOW YOUR OPTIONS Talk to your health care provider about ways to manage your pain that don???t involve prescription opioids. Some of these options may actually work better and have fewer risks and side effects. Options may include: ??? Pain relievers such as acetaminophen, ibuprofen, and naproxen ??? Some medication that are also used for depression or seizures ??? Physical therapy and exercise ??? Cognitive behavioral therapy, a psychological, goal-directed approach, in which patients learn how to modify physical, behavioral, and emotional triggers of pain and stress. IF YOU ARE PRESCRIBED OPIOIDS FOR PAIN: ??? Never take opioids in greater amounts or more often than prescribed. ??? Follow up with your primary health care provider. o Work together to create a plan on how to manage your pain. o Talk about ways to help manage your pain that don???t involve prescription opioids. o Talk about any and all concerns and side effects. ??? Help prevent misuse and abuse o Never sell or share prescription opioids. o Never use another person???s prescription opioids. ??? Store prescription opioids in a secure place and out of reach of others (this may include visitors, children, friends, and family). ??? Safely dispose of unused prescription opioids: Find your community drug take-back program or your pharmacy mail-back program, or flush them down the toilet, following guidance from the Food and Drug Administration (www.fda.gov/Drugs/Resourc esForYou). ??? Visit www.cdc.gov/drugoverdose to learn about the risks of opioids abuse and overdose. ??? If you believe you may be struggling with addiction, tell your health care professi (more content not included)... Normal [facility] Extra Blueon 07-20-2024 Tube Collected Plasma Yes Invalid Interpretation Code [facility] Comment on above: Performed By: #### 1 [id number] #### [facility] [address] [place] [address] HEMATOLOGYOrdered By: SYSTEM SYSTEM on 07-20-2024 Basophils/100 WBC (Bld) 0.8 % Normal 0.0 - 2.0 % Remisol Heme Basophils/Leukocytes Auto (Bld) [Pure # fraction] 0.0 E9/L Normal 0.0 - 0.2 E9/L Remisol Heme Eosinophils (Bld) [#/Vol] 0.2 E9/L Normal 0.0 - 0.5 E9/L Remisol Heme Eosinophils/100 WBC (Bld) 2.9 % Normal 0.0 - 8.0 % Remisol Heme Erythrocyte distribution width (RBC) [Ratio] 13.8 % Normal 10.9 - 14.2 % Remisol Heme Hematocrit (Bld) [Volume fraction] 38.9 % Normal 34.0 - 46.0 % Remisol Heme Hemoglobin (Bld) [Mass/Vol] 13.0 g/dL Normal 12.0 - 16.0 gm/dL Remisol Heme Lymphocytes (Bld) [#/Vol] 1.4 E9/L Normal 1.0 - 4.0 E9/L Remisol Heme Lymphocytes/100 WBC (Bld) 25.2 % Normal 14.0 - 50.0 % Remisol Heme MCH (RBC) [Entitic mass] 29.4 pg Normal 27.0 - 34.0 pg Remisol Heme MCHC (RBC) [Mass/Vol] 33.3 g/dL Normal 31.4 - 36.0 gm/dL Remisol Heme MCV (RBC) [Entitic vol] 88.4 fL Normal 80.0 - 100.0 fL Remisol Heme Monocytes (Bld) [#/Vol] 0.6 E9/L Normal 0.2 - 1.0 E9/L Remisol Heme Monocytes/100 WBC (Bld) 10.0 % Normal 4.0 - 14.0 % Remisol Heme Neutrophils (Bld) [#/Vol] 3.5 E9/L Normal 2.0 - 7.5 E9/L Remisol Heme Neutrophils/100 WBC (Bld) 61.1 % Normal 36.0 - 75.0 % Remisol Heme Platelet mean volume (Bld) [Entitic vol] 7.0 fL Normal 6.4 - 10.8 fL Remisol Heme Platelets (Bld) [#/Vol] 244.0 E9/L Normal 150.0 - 500.0 E9/L Remisol Heme RBC (Bld) [#/Vol] 4.4 E12/L Normal 4.3 - 5.9 E12/L Remisol Heme WBC corrected for nucl RBC Auto (Bld) [#/Vol] 5.7 E9/L Normal 4.0 - 11.0 E9/L Remisol Heme Hep Func Panelon 07-20-2024 Albumin [Mass/Vol] 4.0 g/dL Normal 3.3-5.0 [facility] Comment on above: Performed By: #### 2 [id number] #### [facility] [address] [place] [address] Albumin/Globulin (S) [Mass conc ratio] 1.6 Normal 1.1-2.2 [facility] Comment on above: Performed By: #### 2 [id number] #### [facility] [address] [place] [address] ALP [Catalytic activity/Vol] 74 Int._Unit/L Normal 21-98 [facility] Comment on above: Performed By: #### 2 [id number] #### [facility] [address] [place] [address] ALT No additional P-5'-P [Catalytic activity/Vol] 9 Int._Unit/L Normal 6-46 [facility] Comment on above: Performed By: #### 2 [id number] #### [facility] [address] [place] [address] AST [Catalytic activity/Vol] 19 Int._Unit/L Normal 5-43 [facility] Comment on above: Performed By: #### 2 [id number] #### [facility] [address] [place] [address] Bilirubin [Mass/Vol] 0.4 mg/dL Normal 0.0-1.1 [facility] Comment on above: Performed By: #### 2 [id number] #### [facility] [address] [place] [address] Bilirubin.direct [Mass/Vol] 0.0 mg/dL Normal 0.0-0.4 [facility] Comment on above: Performed By: #### 2 [id number] #### [facility] [address] [place] [address] Bilirubin.indirect [Mass or moles/Vol] 0.4 mg/dL Normal 0.1-0.9 [facility] Comment on above: Performed By: #### 2 [id number] #### [facility] [address] [place] [address] Globulin (S) [Mass/Vol] 2.5 g/dL Normal 1.4-4.0 [facility] Comment on above: Performed By: #### 2 [id number] #### [facility] [address] [place] [address] Protein [Mass/Vol] 6.5 g/dL Normal 6.0-7.8 [facility] Comment on above: Performed By: #### 2 [id number] #### [facility] [address] [place] [address] Lipase Levelon 07-20-2024 Lipase [Catalytic activity/Vol] 25 U/L Normal 13-58 [facility] Comment on above: Performed By: #### 2 [id number] #### [facility] [address] [place] [address] Provider Letteron 07-20-2024 Provider Letter Provider Letter July 20, 2024 MAEGAN DYE [address] [place] [address] : 1950 Dear Maegan, We have been trying to reach you with no success. It is important that you return our call regarding your referral from Azul Gorman to see [facility]. Please call the office to schedule a appointment upon receiving this letter. Also, at the time of your call, please provide us with your current information. Thank you for your prompt attention to this matter. Sincerely, [facility] [phone] Normal [facility] Troponin 0 Hr.on 07-20-2024 Troponin HS <2.30 Low 10.10-27.1 0 [facility] Comment on above: Result Comment: The 95% CI (Confidence Interval) PPV (Positive Predictive Value) for myocardial infarction in females is 38 pg/mL, in males 51 pg/mL. The results should be used in conjunction with clinical conditions of myocardial infarction. (Access High Sensitivity Troponin I Instructions For Use, Siobhan PlaceBlogger, December 2017) Performed By: #### 1 [id number] #### [facility] [address] [place] [address] UA with Cult Rflxon 07-20-19 25 Bilirubin Ql (U) Negative Normal Negative [facility] Comment on above: Performed By: #### 4 [id number] #### [facility] [address] [place] [address] Clarity (U) Clear Normal Clear [facility] Comment on above: Performed By: #### 4 [id number] #### [facility] [address] [place] [address] Color (U) Colorless Abnormal Yellow [facility] Comment on above: Result Comment: Micr oscopic readings are only performed on those samples that meet specific criteria set forth by [facility]. Performed By: #### 4 [id number] #### [facility] [address] [place] [address] Glucose Ql (U) Negative Normal Negative [facility] Comment on above: Performed By: #### 4 [id number] #### [facility] [address] [place] [address] Hemoglobin Auto test strip (U) [Mass/Vol] Negative Normal Negative [facility] Comment on above: Performed By: #### 4 [id number] #### [facility] [address] [place] [address] Ketones Auto test strip Ql (U) Negative Normal Negative [facility] Comment on above: Performed By: #### 4 [id number] #### [facility] [address] [place] [address] Leukocyte esterase Auto test strip Ql (U) Negative Normal Negative [facility] Comment on above: Performed By: #### 4 [id number] #### [facility] [address] [place] [address] Nitrite Auto test strip Ql (U) Negative Normal Negative [facility] Comment on above: Performed By: #### 4 [id number] #### [facility] [address] [place] [address] pH (U) 7.5 [pH] Invalid Interpretation Code 5.0-9.0 [facility] Comment on above: Performed By: #### 4 [id number] #### [facility] [address] [place] [address] Protein Ql (U) Negative Normal Negative [facility] Comment on above: Performed By: #### 4 [id number] #### [facility] [address] [place] [address] Specific gravity (U) [Rel density] 1.004 Invalid Interpretation Code 1.005-1.03 0 [facility] Comment on above: Performed By: #### 4 [id number] #### [facility] [address] [place] [address] Urobilinogen (U) [Mass/Vol] Negative Normal Negative [facility] Comment on above: Performed By: #### 4 [id number] #### [facility] [address] [place] [address] Type of Urine collection method Clean Catch Normal [facility] Comment on above: Performed By: #### 4 [id number] #### [facility] [address] [place] [address] URINALYSISOrdered By: SYSTEM SYSTEM on 07-20-2024 Bilirubin Ql (U) Negative Normal Negativemg /dL [facility] UA Auto SS Clarity (U) Clear (07/20/24 5:22 AM) Normal Clear [facility] UA Auto SS Color (U) Colorless 1 *ABN* (07/20/24 5:22 AM) Invalid Interpretation Code Yellow [facility] UA Auto SS Comment on above: Interpretive Data: M icroscopic readings are only performed on those samples that meet specific criteria set forth by [facility]. Glucose Ql (U) Negative Normal Negativemg /dL FT UA Auto SS Hemoglobin Auto test strip (U) [Mass/Vol] Negative Normal Negativemg /dL [facility] UA Auto SS Ketones Auto test strip Ql (U) Negative Normal Negativemg /dL [facility] UA Auto SS Leukocyte esterase Auto test strip Ql (U) Negative Normal NegativeLe u/uL [facility] UA Auto SS Nitrite Auto test strip Ql (U) Negative Normal Negativemg /dL [facility] UA Auto SS pH (U) 7.5 *NA* (07/20/24 5:22 AM) Invalid Interpretation Code 5.0 - 9.0 [facility] UA Auto SS Protein Ql (U) Negative Normal Negativemg /dL [facility] UA Auto SS Specific gravity (U) [Rel density] 1.004 *NA* (07/20/24 5:22 AM) Invalid Interpretation Code 1.005 - 1.030 [facility] UA Auto SS Urobilinogen (U) [Mass/Vol] Negative Normal Negativemg /dL [facility] UA Auto SS URINALYSISOrdered By: Johny Willson on 07-20-2024 UA Spec Desc Clean Catch (07/20/24 5:22 AM) Normal [facility] UA Auto SS Work Phone: eGFRon 07-20-2024 eGFR 66 mL/min/1.73 m2 Normal >=59 [facility] Comment on above: Performed By: #### 1 [id number] #### [facility] [address] [place] [address] ED Note-Physicianon 07-13-19 ED Note-Physician ED Note-Physician Basic Information Time Seen: Chandan Adhikari DO 07/12/2024 12:48 Chief Complaint pt presents with c/o difficulty urinating and lower abdominal pain. pt states they were recently put on antibiotic for UTI by urologist and symptoms have gotten worse History of Present Illness 74-year-old female reports emergency department with concerns of difficulty urinating. She states that started last night. She states that she has a hard time peeing. She is post placed on antibiotics and did finish them, and still thinks that she may have a UTI. Does follow-up with urology. Reports lower abdominal pain with this. Denies any fevers chills nausea vomiting. Review of Systems No other aggravating or relieving factors no other associated symptoms no other prior treatments or complaints. Family: Reviewed and noncontributory Social: lives at home Review of systems negative unless otherwise specified in the HPI. Physical Exam Vitals & Measurements T: 36.9 ???C(Oral) HR: 72(Monitored) RR: 18 BP: 148/77 SpO2: 97% HT: 154 cm WT: 62 kg BMI: 26.14 General: The patient appears well and in no apparent distress. Patient is resting comfortably on bed. Skin: Warm, dry, no pallor noted. Head: Normocephalic, atraumatic Neck: No JVD Eye: PERRLA, EOMI ENT: Moist mucus membranes Cardiovascular: Regular rate. normal peripheral perfusion Respiratory: No respiratory distress. no accessory muscle use. no obvious audible wheezing Chest Wall: no deformity Musculoskeletal: normal ROM, no deformity, no swelling GI: No obvious distention. Abdomen soft no rebound tenderness or guarding noted. Neurological: A&O. moves all extremities equal strength and symmetry Psychiatric: Cooperative and appropriate Medical Decision Making MEDICAL DECISION MAKING Number and Complexity of Problems Differential Diagnosis: [] [facility] Data External documents reviewed: [] My EKG interpretation: [] My CT interpretation: [] My X-ray interpretation: [] My Ultrasound interpretation: [] Decision rules/scores evaluated: [] Discussed with: [] Treatment and Disposition ED Course: Patient checks in with dysuria and unable to urinate. On initial presentation here, she did urinate. We did do a postvoid residual, that showed no retention of urine greater than 100 mL. Urinalysis was checked that showed no UTI. Discussed with patient was understanding. Patient placed on Pyridium for dysuria relief. Discussed follow-up with urology. Follow-up with your primary care provider in 3 to 5 days. If symptoms worsen, do not improve, or new symptoms arise please report back to emergency department for further evaluation. The patient was understanding and agreeable to plan moving forward. Shared decision making: [] Code status: [] Assessment/Plan Dysuria (R30.0: Dysuria) Orders: phenazopyridine, 100 mg = 1 tab(s), Oral, TID, X 3 day(s), # 9 tab(s), Refills(s) 0, Pharmacy: [facility]/pharm[facility] #[id number], 154, cm, 07/12/24 12:55:00 EST, Height/Length Dosing, 62, kg, 07/12/24 12:55:00 EST, Weight Dosing Post Void Residual Disposition Plan Patient Discharge Condition stable Discharge Disposition to home Discharge Prescription List Prescriptions Pyridium 100 mg Tab, 100 mg= 1 tab(s), Oral, TID Follow-up With When Contact Information Albino BRIAN In 3 days 07/15/2024 EST [address] [place] [address] Business (1) Additional Instructions: AZUL GORMAN In 3 days 07/15/2024 EST [address] [place] [address] [facility] (1) Additional Instructions: Call Dr for diagnosis based follow up Patient Education Dysuria Attestation Patient seen and evaluated by the physician assistant executive housekeeper. Attending physician was present in the emergency department and supervised care. This visit was performed by both the physician and an APC. I performed all aspects of the MDM as documented. This report was transcribed using voice recognition software. Every effort was made to ensure accuracy, however, inadvertently computerized senior licensing manager mistakes may be present. Appropriate healthcare PPE was used in evaluating this patient. The patient was placed in a mask. The healthcare provider was wearing mask, gloves, and utilizing proper hand hygiene. All equipment was properly cleansed. I performed a substantive part of the MDM during the patient???s E/M visit. I personally made or approved [...] pulmonary disease Chronic pain in right foot (more content not included)... Normal [facility] Comment on above: Result Comment: Elec tronically Signed By: Rodrigue John PA-C\.br\Date and Time Signed: 07/12/24 15:29 EST\.br\Electronically Co-Signed By: Chandan Adhikari DO\.br\Date and Time Co-Signed: 07/13/24 07:59 EST ED Clinical Summaryon 2024 ED Clinical Summary ED Clinical Summary [place] [address] ED Clinical Summary Person Information Name: MAEGAN DYE/[facility] Age: 74 Years : 1950 Sex: Female Language: Dutch PCP: AZUL GORMAN CNP Marital Status: Visit Id: Visit Reason: Urinary retention; Abdominal pain; DIFF URINATING Speciality: Acuity: 3 Enc Type: Emergency Med Service: Emergency Arrival: 07/12/2024 12:41:51 Discharge: 07/12/2024 13:43:50 LOS: 000 01:02 Checkin: 07/12/2024 12:41:51 Checkout: 07/12/2024 13:43:50 Dispo Type: Home (Routine DC) EVENTS: Event Name Event Status Request Date/Time Start Date/Time Complete Date/Time Arrive Complete 07/12/2024 12:41:51 07/12/2024 12:41:51 07/12/2024 12:41:51 Document Home Meds Request 07/12/2024 12:41:51 Triage Complete 07/12/2024 12:41:51 07/12/2024 12:55:25 07/12/2024 12:55:25 Bed Assign Complete 07/12/2024 12:47:25 07/12/2024 12:47:25 07/12/2024 12:47:25 Dr Exam Complete 07/12/2024 12:47:25 07/12/2024 12:48:06 07/12/2024 12:48:06 RN Exam Complete 07/12/2024 12:47:25 07/12/2024 12:58:56 07/12/2024 12:58:56 Registration Complete 07/12/2024 12:48:06 07/12/2024 12:48:48 07/12/2024 12:48:48 Dr Exam Complete 07/12/2024 12:48:18 07/12/2024 12:48:18 07/12/2024 12:48:18 Reg Complete Request 07/12/2024 12:48:48 Reg Bed Request Complete 07/12/2024 12:48:48 07/12/2024 12:48:48 07/12/2024 12:48:48 Pending Labs Complete 07/12/2024 12:49:12 07/12/2024 13:23:12 Isolation Screening Request 07/12/2024 12:55:26 Patient Care Request 07/12/2024 13:06:59 Discharge Complete 07/12/2024 13:35:46 07/12/2024 13:43:56 07/12/2024 13:43:56 Transfer Complete 07/12/2024 13:43:56 07/12/2024 13:43:56 07/12/2024 13:43:56 ADDRESS: [facility] [address] [facility] [id number] PHYS DOC NOTES: MEDICAL INFORMATION: Prescriptions Given: New Medications [id number], [address] [place] [id number], [phone] phenazopyridine (Pyridium 100 mg Tab) 1 Tablets By Mouth 3 times a day for 3 Days. Refills: 0. Medications to Continue with No Changes Other Medications amlodipine (amLODIPine 5 mg Tab) 1 Tablets By Mouth every day. TAKE 1 TABLET BY MOUTH EVERY DAY. celecoxib (celecoxib 200 mg Cap) TAKE 1 CAPSULE BY MOUTH EVERY DAY. ciprofloxacin (Cipro 500 mg Tab) 1 Tablets By Mouth every 12 hours for 7 Days. Refills: 0. clonazepam (clonazepam 1 mg Tab) 1 Tablets By Mouth 3 times a day. TAKE 1 TABLET BY MOUTH THREE TIMES A DAY NEEDED FOR ANXIETY. Refills: 0. docusate (Colace 100 mg Cap) 1 Capsules By Mouth 2 times a day. Hold for diarrhea. Refills: 0. docusate (Colace 100 mg Cap) 1 Capsules By Mouth 2 times a day. Refills: 0. Ensure (Ensure Vanilla) Drink 1 bottle (8 fl. oz.) BID. Refills: 5. fluticasone nasal (fluticasone 0.05 mg/inh Nasal Mulberry) 2 Sprays Nasal Inhalation every day. each nostril. Refills: 5. loratadine (loratadine 10 mg oral capsule) 1 Capsules By Mouth every day. [facility] Prescription (Walker) Dispense one walker. Refills: 0. olanzapine (olanzapine 7.5 mg oral tablet) 1 Tablets By Mouth once a day (at bedtime). ondansetron (ondansetron 4 mg Dis Tab) 1 Tablets By Mouth every 6 hours as needed Nausea/Vomiting. Refills: 0. ondansetron (ondansetron 4 mg Dis [...] packet) 17 Gram By Mouth every day. polyethylene glycol 3350 (Miralax 3350 17 gram packet) 17 Gram By Mouth every day. Refills: 0. potassium chloride (potassium chloride 10 mEq Cap-ER) 1 Capsules By Mouth every other day. Refills: 2. sodium chloride 2 gram By Mouth 3 times a day. sulfamethoxazole-trimethop rim (sulfamethoxazole-trimetho prim 400 mg-80 mg Tab) trazodone (traZODONE 150 mg Tab) 1 Tablets By Mouth once a day (at bedtime). Do not give with clonazepam. Refills: 3. PATIENT EDUCATION INFORMATION: Instructions: Dysuria Follow up: With: Address: When: Albino [address] [address] [facility] (1) In 3 days 07/15/2024 With: Address: When: AZUL GORMAN [facility] [place] [address] [place] [address] [facility] (1) In 3 days 07/15/2024 Comments: Call Dr for diagnosis based follow up DIAGNOSIS: Dysuria Normal [facility] ED Patient Summaryon 025 ED Patient Summary ED Patient Summary [address] [address] Patient Discharge Instructions Person Information Name: MAEGAN DYE Age: 74 Years Arrival Date: 07/12/2024 12:41:51 Discharge Diagnosis: Dysuria Primary Care Physician: AZUL GORMAN CNP Provider Information Primary Provider: Chandan Adhikari DO [employer] Vertical:Rodrigue John PA-C. The exam and treatment you received in the Emergency Department were for an urgent problem and are not intended as complete care. It is important that you follow up with a doctor, nurse practitioner, or physician???s assistant executive housekeeper for ongoing care. If your symptoms become worse or you do not improve as expected and you are unable to reach your usual health care provider, you should return to the Emergency Department. We are available 24 hours a day. MAEGAN DYE has been given the following list of patient education materials, prescriptions and follow-up instructions: Follow-up Instructions: With: Address: When: Albino TORRES [address] [place] [id number] [facility] () In 3 days 07/15/2024 With: Address: When: [place] [address] [facility] (1) In 3 days 07/15/2024 Comments: Call Dr for diagnosis based follow up In the event that this physician does not participate in your insurance network, please consult with your insurance company to find a nearby participating provider. Patient Education Materials: Dysuria A MESSAGE TO ALL PATIENTS REGARDING OPIOIDS PRESCRIPTION OPIOIDS: WHAT YOU NEED TO KNOW Prescription opioids can be used to help relieve pxnwicjq-ey-ilavuw pain and are often prescribed following a [...] as well, even when taken as directed: ??? Tolerance???meaning you might need to take more of the medication for the same pain relief ??? Physical dependence???meaning you have symptoms of withdrawal when a medication is stopped ??? Increased sensitivity to pain ??? Constipation ??? Nausea, vomiting, and dry mouth ??? Sleepiness and dizziness ??? Confusion ??? Depression ??? Low levels of testosterone that can result in lower sex drive, energy, and strength ??? Itching and sweating RISKS ARE GREATER WITH: ??? History of drug misuse, substance use disorder, or overdose ??? Mental health conditions (such as depression or anxiety) ??? Sleep apnea ??? Older age (65 years and older) ??? Avoid alcohol while taking prescription opioids. Also, unless specifically advised by your health care provider, medications to avoid include: ??? Benzodiazepines (such as Xanax or Valium) ??? Muscle relaxants (such as Soma or Flexeril) ??? Hypnotics (such as Ambien or Lunesta) ??? Other prescription opioids KNOW YOUR OPTIONS Talk to your health care provider about ways to manage your pain that don???t involve prescription opioids. Some of these options may actually work better and have fewer risks and side effects. Options may include: ??? Pain relievers such as acetaminophen, ibuprofen, and naproxen ??? Some medication that are also used for depression or seizures ??? Physical therapy and exercise ??? Cognitive behavioral therapy, a psychological, goal-directed approach, in which patients learn how to modify physical, behavioral, and emotional triggers of pain and stress. IF YOU ARE PRESCRIBED OPIOIDS FOR PAIN: ??? Never take opioids in greater amounts or more often than prescribed. ??? Follow up with your primary health care provider. o Work together to create a plan on how to manage your pain. o Talk about ways to help manage your pain that don???t involve prescription opioids. o Talk about any and all concerns and side effects. ??? Help prevent misuse and abuse o Never sell or share prescription opioids. o Never use another person???s prescription opioids. ??? Store prescription opioids in a secure place and out of reach of others (this may include visitors, children, friends, and family). ??? Safely dispose of unused prescription opioids: Find your community drug take-back program or your pharmacy mail-back program, or flush them down the toilet, following guidance from the Food and Drug Administration (www.fda.gov/Drugs/Resourc esForYou). ??? Visit www.cdc.gov/dr (more content not included)... Normal [facility] UA with Cult Rflxon 07-12-19 25 Bilirubin Ql (U) Negative Normal Negative [facility] Comment on above: Performed By: #### 4 [id number] #### [facility] [address] [place] [address] Clarity (U) Clear Normal Clear [facility] Comment on above: Performed By: #### 4 [id number] #### [facility] [address] [place] [address] Color (U) Light-Yellow Normal Yellow [facility] Comment on above: Result Comment: Micr oscopic readings are only performed on those samples that meet specific criteria set forth by [facility]. Performed By: #### 4 [id number] #### [facility] [address] [place] [address] Glucose Ql (U) Negative Normal Negative [facility] Comment on above: Performed By: #### 4 [id number] #### [facility] [address] [place] [address] Hemoglobin Auto test strip (U) [Mass/Vol] Negative Normal Negative [facility] Comment on above: Performed By: #### 4 [id number] #### [facility] [address] [place] [address] Ketones Auto test strip Ql (U) Negative Normal Negative [facility] Comment on above: Performed By: #### 4 [id number] #### [facility] [address] [place] [address] Leukocyte esterase Auto test strip Ql (U) Negative Normal Negative [facility] Comment on above: Performed By: #### 4 [id number] #### [facility] [address] [place] [address] Nitrite Auto test strip Ql (U) Negative Normal Negative [facility] Comment on above: Performed By: #### 4 [id number] #### [facility] [address] [place] [address] pH (U) 6.0 [pH] Invalid Interpretation Code 5.0-9.0 [facility] Comment on above: Performed By: #### 4 [id number] #### [facility] [address] [place] [address] Protein Ql (U) Negative Normal Negative [facility] Comment on above: Performed By: #### 4 [id number] #### [facility] [address] [place] [address] Specific gravity (U) [Rel density] 1.007 Invalid Interpretation Code 1.005-1.03 0 [facility] Comment on above: Performed By: #### 4 [id number] #### [facility] [address] [place] [address] Urobilinogen (U) [Mass/Vol] Negative Normal Negative [facility] Comment on above: Performed By: #### 4 [id number] #### [facility] [address] [place] [address] Type of Urine collection method Clean Catch Normal [facility] Comment on above: Performed By: #### 4 [id number] #### [facility] [address] [place] [address] URINALYSISOrdered By: SYSTEM SYSTEM on 07-12-2024 Bilirubin Ql (U) Negative Normal Negativemg /dL [facility] UA Auto SS Clarity (U) Clear (07/12/24 1:02 PM) Normal Clear [facility] UA Auto SS Color (U) Light-Yellow 1 (07/12/24 1:02 PM) Normal Yellow [facility] UA Auto SS Comment on above: Interpretive Data: M icroscopic readings are only performed on those samples that meet specific criteria set forth by [facility]. Glucose Ql (U) Negative Normal Negativemg /dL [facility] UA Auto SS Hemoglobin Auto test strip (U) [Mass/Vol] Negative Normal Negativemg /dL [facility] UA Auto SS Ketones Auto test strip Ql (U) Negative Normal Negativemg /dL [facility] UA Auto SS Leukocyte esterase Auto test strip Ql (U) Negative Normal NegativeLe u/uL [facility] UA Auto SS Nitrite Auto test strip Ql (U) Negative Normal Negativemg /dL [facility] UA Auto SS pH (U) 6.0 *NA* (07/12/24 1:02 PM) Invalid Interpretation Code 5.0 - 9.0 [facility] UA Auto SS Protein Ql (U) Negative Normal Negativemg /dL [facility] UA Auto SS Specific gravity (U) [Rel density] 1.007 *NA* (07/12/24 1:02 PM) Invalid Interpretation Code 1.005 - 1.030 [facility] UA Auto SS Urobilinogen (U) [Mass/Vol] Negative Normal Negativemg /dL [facility] UA Auto SS URINALYSISOrdered By: Chandan samson on 07-12-2024 UA Spec Desc Clean Catch (07/12/24 1:02 PM) Normal [facility] UA Auto SS Work Phone: Ambulatory Visit Summaryon 0 07-06-2024 Ambulatory Visit Summary Ambulatory Visit Summary MAEGAN DYE :1950 Visit Date:07/06/2024 Ambulatory Visit Instructions Your Care Team Primary Care Physician - AZUL GORMAN CNP This Is Your Medications List Ensure (Ensure Vanilla) Misc Prescription (Walker) amlodipine (amLODIPine 5 mg Tab) celecoxib (celecoxib 200 mg Cap) ciprofloxacin (Cipro 500 mg Tab) clonazepam (clonazepam 1 mg Tab) docusate (Colace 100 mg Cap) docusate (Colace 100 mg Cap) fluticasone nasal (fluticasone 0.05 mg/inh Nasal Mulberry) loratadine (loratadine 10 mg oral capsule) olanzapine (olanzapine 7.5 mg oral tablet) ondansetron (Zofran ODT 4 mg Tab-Dis) ondansetron (ondansetron 4 mg Dis Tab) ondansetron (ondansetron 4 mg Dis Tab) pantoprazole (Pantoprazole [address] Tab) polyethylene glycol 3350 (Miralax 17 gram packet) polyethylene glycol 3350 (Miralax 3350 17 gram packet) potassium chloride (potassium chloride 10 mEq Cap-ER) sodium chloride sulfamethoxazole-trimethop rim (Bactrim D.S. 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 Medications What How Much When Why Instructions Unchanged amlodipine (amLODIPine 5 mg Tab) 1 Tablets By Mouth Every day TAKE 1 TABLET BY MOUTH EVERY DAY Unchanged celecoxib (celecoxib 200 mg Cap) TAKE 1 CAPSULE BY MOUTH EVERY DAY Unchanged ciprofloxacin (Cipro 500 mg Tab) 1 Tablets By Mouth Every 12 hours Recurrent UTI Duration: 7 Days Unchanged clonazepam (clonazepam 1 mg Tab) 1 Tablets By Mouth 3 times a day TAKE 1 TABLET BY MOUTH THREE TIMES A DAY NEEDED FOR ANXIETY Unchanged docusate (Colace 100 mg Cap) 1 Capsules By Mouth 2 times a day Hold for diarrhea Unchanged docusate (Colace 100 mg Cap) 1 Capsules By Mouth 2 times a day Unchanged Ensure (Ensure Vanilla) See instructions Drink 1 bottle (8 fl. oz.) BID Unchanged fluticasone nasal (fluticasone 0.05 mg/ inh Nasal Mulberry) 2 Sprays Nasal Inhalation Every day each nostril Unchanged loratadine (loratadine 10 mg oral capsule) 1 Capsules By Mouth Every day Unchanged [facility] Prescription (Walker) See instructions Dispense one walker Unchanged olanzapine (olanzapine 7.5 mg oral tablet) 1 Tablets By Mouth Once a day (at bedtime) Unchanged ondansetron (ondansetron 4 mg Dis Tab) 1 Tablets By Mouth Every 6 hours as needed for Nausea/Vomiting Unchanged ondansetron (ondansetron 4 mg Dis Tab) 1 Tablets By Mouth Every 6 hours as needed for Nausea/Vomiting Unchanged ondansetron (Zofran ODT 4 mg Tab-Dis) 1 Tablets By Mouth 3 times a day as needed for Nausea Nausea Unchanged pantoprazole (Pantoprazole [address] Tab) TAKE 1 TABLET BY MOUTH EVERY DAY Unchanged polyethylene glycol 3350 (Miralax 17 gram packet) 17 Gram By Mouth Every day Unchanged polyethylene glycol 3350 (Miralax 3350 17 gram packet) 17 Gram By Mouth Every day Unchanged potassium chloride (potassium chloride 10 mEq Cap-ER) 1 Capsules By Mouth Every other day Unchanged sodium chloride 2 gram By Mouth 3 times a day Unchanged sulfamethoxazole-trimethop rim (Bactrim D.S. 800 mg-160 mg Tab) 1 Tablets By Mouth 2 times a day Duration: 7 Days Unchanged sulfamethoxazole-trimethop rim (sulfamethoxazole-trimetho prim 400 mg-80 mg Tab) Unchanged trazodone (traZODONE 150 mg Tab) 1 Tablets By Mouth Once a day (at bedtime) Do not give with clonazepam Allergies Compazine (anaphylaxis) Depakote (unsteady) Haldol (unk.) Neurontin (Unknown) Remeron (Unknown) RisperDAL (Unknown) Ritalin (Unknown) SEROquel (Unknown) Stadol (delusions) bacitracin (swelling) fentaNYL methadone (seizure, syncope) shellfish Problems Ongoing - Any problem that you are currently receiving treatment for. Acute UTI At risk for falls Bipolar [...] production) Stage 3 chronic kidney disease Thyroid nodul (more content not included)... Normal [facility] C Urineon 07-06-2024 Bacteria identified Cx Nom (U) Microbiology PROCEDURE: Urine Culture [R1] SOURCE: U CleanCatch BODY SITE: COLLECTED DATE/TIME: 07/04/2024 07:37 EST RECEIVED DATE/TIME: 07/04/2024 10:27 EST START DATE/TIME: 07/04/2024 10:27 EST FREE TEXT SOURCE: Kye Nicole DO, DO, Kye Christie FINAL REPORTS Final Report [] Verified Date/Time: 07/06/2024 09:16 EST >100,000 cfu/ml Enterobacter cloacae SUSCEPTIBILITY RESULTS _ LEGEND: S=Susceptible, N/R=Not Reported, Blank=Data not available, or drug not advisable or tested, I=Intermediate, ESBL=Extended spectrum beta-lactamase, R=Resistant, TFG=Thymidine-dependent strain, ANAY=Beta-lactamase positive, REINALDO=mcg/m;(mg/L), S*=Predicted susceptible interp, R*=Predicted resistant interp Entclo Antibiotic REINALDO Dilutn REINALDO Interp Ampicillin 16 R* Ampicillin/ <=8/4 R* Sulbactam Aztreonam <=4 S Cefazolin >16 R Cefepime <=2 S Ceftazidime <=1 S Ceftazidime/ <=8 S Avibactam Ceftriaxone <=1 S Cefuroxime 8 R* Ciprofloxacin <=0.25 S Ertapenem <=0.5 S Gentamicin <=2 S Levofloxacin <=0.5 S Meropenem <=1 S Nitrofurantoin 64 I Piperacillin/ <=8 S Tazobactam Tetracycline <=4 S Tobramycin <=2 S Trimethoprim/ <=2/38 S Sulfa Performing Locations R1: This test was performed at: [facility], [address] [place] [address], [id number] , [place], Normal [facility] Comment on above: Performed By: #### 2 [id number] #### [facility] [address] [place] [address] Reminderson 07-06-2024 Reminders Reminders From: Jihan Gregorio To: EU - Administrative; Sent: 07/06/2024 14:41:25 EST Show up: 08/24/2024 14:41:00 EDT Subject: Needs 3 mos (October 2024) Recheck Due Date/Time: 11/12/2024 14:41:00 EDT Reminder/Recall Patient needs 3 mos f/up with Luz Elena in September 2024. Normal [facility] Urology Office/Clinic Noteon 07-06-2024 Urology Office/Clinic Note Urology Office/Clinic Note Chief Complaint recurrent uti establish care HPI Staff 74 year old female new patient referral due to uti CT abdomen/pelvis w/contrast- negative [facility] most recently 07/04 due to rt. side flank and ABD pain and C/O not being able to urinate x1 day pvr in ER was 190cc, pt. was not cathed due to her having supplies at home to do her self if needed. Started on Bactrim x7days >100,000 cfu/ml Enterobacter cloacae 06/18/24 urgent care due to foul smelling urine-treatd with keflex 500 mg tid x 7 days. PRN Pyridium 05/04/24- [facility] due to confusion-cephalexin, 500 mg x5 days 04/26/24-[facility] due to urinary retention- bladder scan residual was less than 200 cc. on keflex for uti at that time 04/28/24- [facility] due to dysuria and retention- was able to urinate at the ER and was discharged 04/21/24- [facility] due to urinary retention and uti symptoms- pvr 300cc. Cipro 250mg then switched to keflex positive culture >100,000 cfu/ml Klebsiella pneumoniae 1,000 cfu/ml Mixed skin contaminants 04/19/24- [facility] due to urinary retention (48hrs) and constipation- urinated in ER- discharged 04/11/24- [facility] urinary retention and diarrhea. pvr less than 30cc 20,000 cfu/ml Enterococcus faecium 2,000 cfu/ml Mixed skin contaminants 04/07/24- [facility] urinary retention/odor 03/16/24- discharged from [facility] after a fall- choi was placed while she was IP due to neurogenic bladder. Cath fell out after discharge and patient refused replacement. 07/05/2019-urodynamics and cysto UD w/ [facility] patient states she urinates q2-3hrs during the day and up 4x a night. Denies any incontinence. States she cathed a few weeks ago at home and does not want to have to do that states its a terrible experience . History of Present Illness I have reviewed and verified the staff HPI to be accurate for this encounter. Physical Exam Vitals & Measurements HT: 61 in HT: 154 cm WT: 63 kg WT: 138.891 lb BMI: 26.56 General: Well developed, well nourished, in no acute distress. Assessment/Plan Prior [facility] pt Last seen IO on 07/19/19 for urinary retention. UDS results reviewed at this visit with recommendations to keep choi catheter in place. Pt refused and was subsequently referred to [facility] to another urologist. Re-referred by Adrian COTTON for recurrent UTIs Multiple ER visits, listed above in staff HPI. Most recent visit to [facility] on 07/04/24 - presented to ED for suprapubic, right flank pain, inability to urinate x 1 day. UA consistent w/ UTI, tx w/ Bactrim. PVR 190 mL, choi placement deferred w/ plans for pt to perform CIC at home if she retains more/unable to void. CT AP w/ con 07/04/24 - kidneys without hydro, stones, or mass. Mild to moderately distended urinary bladder otherwise unremarkable. 1. Recurrent UTI (N39.0: Urinary tract infection, site not specified) UCX 09/07/23 - 15k Staphylococcus epidermidis 01/04/24 - >100k E. Coli 02/01/24 - 40k Klebsiella pneumoniae 03/09/24 - 75k Klebsiella pneumoniae 03/14/24 - 20K Enterococcus faecium, 3k Enterococcus faecalis, 3k Klebsiella pneumoniae 04/13/24 - 20K Enterococcus faecium 04/23/24 - >100k klebsiella pneumoniae 04/26/24 - 500 mixed skin contaminants 04/30/24 - 200 mixed skin contaminants 05/06/24 - <100k mixed skin contaminants 06/19/24 - 2k mixed skin contaminants 06/22/24 - 1k mixed skin contaminants 07/04/24 - >100K Enterobacter cloacae, tx w/ Bactrim x 7 days UA today shows trace leuks, trace-intact blood PVR 0 mL BBSQ 11 Prior [facility] pt who he referred pt to [facility] urologist for further management of urinary retention. Today, pt is re-referred by Adrian Kinsey for recurrent UTIs. Pt states she was last seen by [facility] Urologist 3 months ago but would like to re-establish care here at [facility] due to our office being closer. Patient states she has been dealing with recurrent UTIs for many years. She was told by [facility] Urologist that she should CIC due to neurogenic bladder. Reports she began to have increased frequency of UTIs with CIC so she stopped CIC altogether about 6 months ago. She has had multiple ER visits for UTI/urinary retention in the past 6 months. Patient is currently on Bactrim for a UTI. States that she continues to have UTI sxs today which includes urinary frequency and low back pain. Denies fever, chills, dysuria, suprapubic pain. States these are her typical UTI sxs. Pt requesting that her current antibiotic be changed at today's visit due to her sxs not improving since ER visit on 07/04/24. Offered to switch her antibiotic to Ciprofloxacin 500 mg x 7 days based on her recent UCX susceptibilities. Pt agreeable to this. Pt had recent CT abd/pelvis on 07/04/24 that showed no stones or hydro. Today we discussed the following methods to decrease frequency of UTIs: 1) Increase fluids. Aim for at least 2L daily. General bladder health reviewed and pt education provided. Bladder irritant list provided for pt to review. 2) Ensure bladder emptying fully. PVR today 0. Discussed doubl (more content not included)... Normal [facility] Comment on above: Result Comment: Elec tronically Signed By: Velia BYRD, Luz Elena\.br\Date and Time Signed: 07/06/24 19:20 EST CBC w/ Auto Diffon 5 Basophils/100 WBC (Bld) 0.5 % Normal 0.0-2.0 [facility] Comment on above: Performed By: #### 2 [id number] #### [facility] [address] [place] [address] Basophils/Leukocytes Auto (Bld) [Pure # fraction] 0.0 E9/L Normal 0.0-0.2 [facility] Comment on above: Performed By: #### 2 [id number] #### [facility] [address] [place] [address] Eosinophils (Bld) [#/Vol] 0.1 E9/L Normal 0.0-0.5 [facility] Comment on above: Performed By: #### 2 [id number] #### [facility] [address] [place] [address] Eosinophils/100 WBC (Bld) 2.0 % Normal 0.0-8.0 [facility] Comment on above: Performed By: #### 2 [id number] #### [facility] [address] [place] [address] Erythrocyte distribution width (RBC) [Ratio] 13.7 % Normal 10.9-14.2 [facility] Comment on above: Performed By: #### 2 [id number] #### [facility] [address] [place] [address] Hematocrit (Bld) [Volume fraction] 45.0 % Normal 34.0-46.0 [facility] Comment on above: Performed By: #### 2 [id number] #### [facility] [address] [place] [address] Hemoglobin (Bld) [Mass/Vol] 14.9 g/dL Normal 12.0-16.0 [facility] Comment on above: Performed By: #### 2 [id number] #### [facility] [address] [place] [address] Lymphocytes (Bld) [#/Vol] 1.6 E9/L Normal 1.0-4.0 [facility] Comment on above: Performed By: #### 2 [id number] #### [facility] [address] [place] [address] Lymphocytes/100 WBC (Bld) 23.2 % Normal 14.0-50.0 [facility] Comment on above: Performed By: #### 2 [id number] #### [facility] [address] [place] [address] MCH (RBC) [Entitic mass] 29.3 pg Normal 27.0-34.0 [facility] Comment on above: Performed By: #### 2 [id number] #### [facility] [address] [place] [address] MCHC (RBC) [Mass/Vol] 33.1 g/dL Normal 31.4-36.0 [facility] Comment on above: Performed By: #### 2 [id number] #### [facility] [address] [place] [address] MCV (RBC) [Entitic vol] 88.5 fL Normal 80.0-100.0 [facility] Comment on above: Performed By: #### 2 [id number] #### [facility] [address] [place] [address] Monocytes (Bld) [#/Vol] 0.6 E9/L Normal 0.2-1.0 [facility] Comment on above: Performed By: #### 2 [id number] #### [facility] [address] [place] [address] Neutrophils (Bld) [#/Vol] 4.4 E9/L Normal 2.0-7.5 [facility] Comment on above: Performed By: #### 2 [id number] #### [facility] [address] [place] [address] Neutrophils/100 WBC (Bld) 66.0 % Normal 36.0-75.0 [facility] Comment on above: Performed By: #### 2 [id number] #### [facility] [address] [place] [address] Platelet mean volume (Bld) [Entitic vol] 7.3 fL Normal 6.4-10.8 [facility] Comment on above: Performed By: #### 2 [id number] #### [facility] [address] [place] [address] Platelets (Bld) [#/Vol] 230.0 E9/L Normal 150.0-500. 0 [facility] Comment on above: Performed By: #### 2 [id number] #### [facility] [address] [place] [address] RBC (Bld) [#/Vol] 5.1 E12/L Normal 4.3-5.9 [facility] Comment on above: Performed By: #### 2 [id number] #### [facility] [address] [place] [address] WBC corrected for nucl RBC Auto (Bld) [#/Vol] 6.7 E9/L Normal 4.0-11.0 [facility] Comment on above: Performed By: #### 2 [id number] #### [facility] [address] [place] [id number] CHEMISTRYOrdered By: SYSTEM SYSTEM on 07-04-2024 Albumin [Mass/Vol] 4.4 g/dL Normal 3.3 - 5.0 gm/dL Remisol Chem Albumin/Globulin [Mass ratio] 1.6 {ratio} Normal 1.1 - 2.2 [facility] ALP [Catalytic activity/Vol] 88 [iU]/d Normal 21 - 98 Int._Unit/ L [facility] ALT No additional P-5'-P [Catalytic activity/Vol] 9 [iU]/d Normal 6 - 46 Int._Unit/ L [facility] Anion gap [Moles/Vol] 11 mmol/L Normal 6 - 16 mEq/L [facility] AST [Catalytic activity/Vol] 15 [iU]/d Normal 5 - 43 Int._Unit/ L [facility] Bilirubin [Mass/Vol] 0.8 mg/dL Normal 0.0 - 1 .1 mg/dL [facility] Calcium [Mass/Vol] 9.9 mg/dL Normal 8.9 - 11. 1 mg/dL [facility] Chloride [Moles/Vol] 98 mmol/L Low 101 - 1 11 mmol/L Remisol Chem CO2 [Moles/Vol] 28 mmol/L Normal 21 - 31 mmol/L Remisol Chem Creatinine [Mass/Vol] 0.9 mg/dL Normal 0.5 - 1.3 mg/dL Remisol Chem eGFR 66 mL/min/1.73 m2 Normal >=59mL/min /1.73 m2 Remisol Chem Globulin (S) [Mass/Vol] 2.7 g/dL Normal 1.4 - 4.0 gm/dL Remisol Chem Glucose [Mass/Vol] 114 mg/dL Normal 55 - 199 mg/dL Remisol Chem Lipase [Catalytic activity/Vol] 18 U/L Normal 13 - 58 unit/L Remisol Chem Potassium [Moles/Vol] 3.9 mmol/L Normal 3.5 - 5.3 mmol/L Remisol Chem Protein [Mass/Vol] 7.1 g/dL Normal 6.0 - 7.8 gm/dL Remisol Chem Sodium [Moles/Vol] 133 mmol/L Low 135 - 145 mmol/L Remisol Chem Urea nitrogen [Mass/Vol] 11 mg/dL Normal 5 - 21 mg/dL Remisol Chem Urea nitrogen/Creatinine [Mass ratio] 12 mg/mg Normal 10 - 20 Remisol Chem CMPon 07-04-2024 Albumin [Mass/Vol] 4.4 g/dL Normal 3.3-5.0 [facility] Comment on above: Performed By: #### 2 [id number] #### [facility] [address] [place] [address] Albumin/Globulin (S) [Mass conc ratio] 1.6 Normal 1.1-2.2 [facility] Comment on above: Performed By: #### 2 [id number] #### [facility] [address] [place] [address] ALP [Catalytic activity/Vol] 88 Int._Unit/L Normal 21-98 [facility] Comment on above: Performed By: #### 2 [id number] #### [facility] [address] [place] [address] ALT No additional P-5'-P [Catalytic activity/Vol] 9 Int._Unit/L Normal 6-46 [facility] Comment on above: Performed By: #### 2 [id number] #### [facility] [address] [place] [address] Anion gap [Moles/Vol] 11 mmol/L Normal 6-16 [facility] Comment on above: Performed By: #### 2 [id number] #### [facility] [address] [place] [address] AST [Catalytic activity/Vol] 15 Int._Unit/L Normal 5-43 [facility] Comment on above: Performed By: #### 2 [id number] #### [facility] [address] [place] [address] Bilirubin [Mass/Vol] 0.8 mg/dL Normal 0.0-1.1 [facility] Comment on above: Performed By: #### 2 [id number] #### [facility] [address] [place] [address] Calcium [Mass/Vol] 9.9 mg/dL Normal 8.9-11.1 [facility] Comment on above: Performed By: #### 2 [id number] #### [facility] [address] [place] [address] Chloride [Moles/Vol] 98 mmol/L Low 101-111 [facility] Comment on above: Performed By: #### 2 [id number] #### [facility] [address] [place] [address] CO2 [Moles/Vol] 28 mmol/L Normal 21-31 [facility] Comment on above: Performed By: #### 2 [id number] #### [facility] [address] [place] [address] Creatinine [Mass/Vol] 0.9 mg/dL Normal 0.5-1.3 [facility] Comment on above: Performed By: #### 2 [id number] #### [facility] [address] [place] [address] Globulin (S) [Mass/Vol] 2.7 g/dL Normal 1.4-4.0 [facility] Comment on above: Performed By: #### 2 [id number] #### [facility] [address] [place] [address] Glucose [Mass/Vol] 114 mg/dL Normal 55-199 [facility] Comment on above: Performed By: #### 2 [id number] #### [facility] [address] [place] [address] Potassium [Moles/Vol] 3.9 mmol/L Normal 3.5-5.3 [facility] Comment on above: Performed By: #### 2 [id number] #### [facility] [address] [place] [address] Protein [Mass/Vol] 7.1 g/dL Normal 6.0-7.8 [facility] Comment on above: Performed By: #### 2 [id number] #### [facility] [address] [place] [address] Sodium [Moles/Vol] 133 mmol/L Low 135-145 [facility] Comment on above: Performed By: #### 2 [id number] #### [facility] [address] [place] [address] Urea nitrogen [Mass/Vol] 11 mg/dL Normal 5-21 [facility] Comment on above: Performed By: #### 2 [id number] #### [facility] [address] [place] [address] Urea nitrogen/Creatinine [Mass ratio] 12 No Units Normal 10- [facility] Comment on above: Performed By: #### 2 [id number] #### [facility] [address] [place] [address] CT Abdomen/Pelvis w/ Contras ton 07-04-2024 CT Abdomen/Pelvis w/ Contrast Exam Date/Time: 07/04/2024 08:32 EST Reason for Exam: Pain Report IMPRESSION: NO ACUTE INTRA-ABDOMINAL PROCESS OR SIGNIFICANT CHANGE FROM 05/16/2024 IDENTIFIED. CHRONIC FINDINGS, NOTED. EXAM: CT Abdomen/Pelvis w/ Contrast DATE: 07/04/2024 8:10 AM CLINICAL HISTORY: Pain. Technologist Comments: (R) sided flank and ABD pain. States unable to urinate since Friday. Attempted to self cath without relief. COMPARISON: 05/16/2024. TECHNIQUE: Spiral imaging was obtained of the abdomen and pelvis after the uneventful infusion of intravenous contrast. All CT scans at this facility use dose modulation, iterative reconstruction, and/or weight based dosing when appropriate to reduce radiation dose to as low as reasonably achievable. Unless otherwise stated, incidental findings identified in this report do not require routine follow-up imaging. FINDINGS: Liver: No enlargement, significant fatty infiltration, suspicious mass or lesion. Biliary: The gallbladder is unremarkable. No abnormal biliary ductal dilatation. Pancreas: No suspicious mass, organized fluid collection, surrounding inflammation, or abnormal pancreatic ductal dilatation. Spleen: Unremarkable. Adrenals: Unremarkable. Kidneys: No hydronephrosis, significant urinary tract calculi, or suspicious mass. GI tract: No abnormal dilation, wall thickening, or suspicious mass. Mild predominantly descending colon diverticulosis. The appendix is not confidently identified, without findings to suggest acute appendicitis. Lymph nodes: No pathologically enlarged lymph nodes. Vasculature: No aneurysm or dissection. Left common iliac stent and IVC filter again noted. Mesentery/peritoneum/retro peritoneum: No ascites, organized fluid collection, inflammatory changes, or suspicious mass. Pelvis: The mild to moderately distended urinary bladder is otherwise unremarkable. The uterus and adnexa appear within normal limits. Musculoskeletal: No acute osseous findings identified. Implanted infusion pump and catheter, and degenerative change L4-L5 again noted. The visualized aspect of a total left hip arthroplasty is otherwise unremarkable. Report Lower thorax: Noncontributory. Ordering Provider: Kye Nicole FINAL REPORT Dictated: 07/04/2024 8:44 am Parmjit Fong MD Signed (Electronic Signature): 07/04/2024 8:44 am Signed by: Parmjit Fong MD Transcribed by: GLORIA Technologist: VALERI Aranda [facility] ED Clinical Summaryon 2024 ED Clinical Summary ED Clinical Summary [place] [id number] ED Clinical Summary Person Information [facility]: [facility] Age[facility] 74 Years : 1950 Sex: Female Language: Dutch PCP: AZUL GORMAN CNP Marital Status: Visit Id: Visit Reason: Urinary retention; Flank pain; Abdominal pain; CANT URINATE Speciality: Acuity: 3 Enc Type: Emergency Med Service: Emergency Arrival: 07/04/2024 06:53:34 Discharge: 07/04/2024 09:16:15 LOS: 000 02:23 Checkin: 07/04/2024 06:53:34 Checkout: 07/04/2024 09:16:15 Dispo Type: Home (Routine DC) EVENTS: Event Name Event Status Request Date/Time Start Date/Time Complete Date/Time Arrive Complete 07/04/2024 06:53:34 07/04/2024 06:53:34 07/04/2024 06:53:34 Document Home Meds Request 07/04/2024 06:53:34 Triage Complete 07/04/2024 06:53:34 07/04/2024 07:08:22 07/04/2024 07:08:22 Registration Complete 07/04/2024 06:57:01 07/04/2024 06:57:01 07/04/2024 06:57:01 Reg Complete Request 07/04/2024 06:57:01 Reg Bed Request Complete 07/04/2024 06:57:01 07/04/2024 06:57:01 07/04/2024 06:57:01 Isolation Screening Request 07/04/2024 07:08:22 Bed Assign Complete 07/04/2024 07:12:19 07/04/2024 07:12:19 07/04/2024 07:12:19 Dr Exam Complete 07/04/2024 07:12:19 07/04/2024 07:13:32 07/04/2024 07:13:32 RN Exam Complete 07/04/2024 07:12:19 07/04/2024 07:48:29 07/04/2024 07:48:29 Registration Request 07/04/2024 07:13:32 Pending Labs Complete 07/04/2024 07:24:40 07/04/2024 08:05:40 Lab Complete 07/04/2024 07:24:40 07/04/2024 08:05:40 CT Complete 07/04/2024 07:24:40 07/04/2024 08:10:20 07/04/2024 08:32:57 Patient Care Request 07/04/2024 07:24:40 EKG Complete 07/04/2024 07:25:54 07/04/2024 07:44:21 Pending Labs Complete 07/04/2024 07:39:12 07/04/2024 07:39:12 07/04/2024 08:05:40 Lab Complete 07/04/2024 07:39:12 07/04/2024 07:39:12 07/04/2024 08:05:40 Pending Labs Collected 07/04/2024 07:55:40 07/04/2024 07:55:40 Lab Collected 07/04/2024 07:55:40 07/04/2024 07:55:40 Meds Admin Complete 07/04/2024 08:52:52 07/04/2024 09:02:22 Discharge Complete 07/04/2024 08:56:50 07/04/2024 09:16:23 07/04/2024 09:16:23 Transfer Complete 07/04/2024 09:16:23 07/04/2024 09:16:23 07/04/2024 09:16:23 ADDRESS: [address] [place] [id number] PHYS DOC NOTES: MEDICAL INFORMATION: Prescriptions Given: Medications to Continue Taking That Have Changed [facility]/pharmacy #[id number], [address] [place] [id number], [phone] START: sulfamethoxazole-trimethop rim (Bactrim D.S. 800 mg-160 mg Tab) 1 Tablets By Mouth 2 times a day for 7 Days. Refills: 0. Other Medications START: sulfamethoxazole-trimethop rim (sulfamethoxazole-trimetho prim 400 mg-80 mg Tab) Medications to Continue with No Changes Other Medications amlodipine (amLODIPine 5 mg Tab) 1 Tablets By Mouth every day. TAKE 1 TABLET BY MOUTH EVERY DAY. celecoxib (celecoxib 200 mg Cap) TAKE 1 CAPSULE BY MOUTH EVERY DAY. clonazepam (clonazepam 1 mg Tab) 1 Tablets By Mouth 3 times a day. TAKE 1 TABLET BY MOUTH THREE TIMES A DAY NEEDED FOR ANXIETY. Refills: 0. docusate (Colace 100 mg Cap) 1 Capsules By Mouth 2 times a day. Hold for diarrhea. Refills: 0. docusate (Colace 100 mg Cap) 1 Capsules By Mouth 2 times a day. Refills: 0. Ensure (Ensure Vanilla) Drink 1 bottle (8 fl. oz.) BID. Refills: 5. fluticasone nasal (fluticasone 0.05 mg/inh Nasal Mulberry) 2 Sprays Nasal Inhalation every day. each nostril. Refills: 5. loratadine (loratadine 10 mg oral capsule) 1 Capsules By Mouth every day. [facility] Prescription (Segundo) Dispense one walker. Refills: 0. olanzapine (olanzapine 7.5 mg oral tablet) 1 Tablets By Mouth once a day (at bedtime). ondansetron (ondansetron 4 mg Dis Tab) 1 Tablets By Mouth every 6 hours as needed Nausea/Vomiting. Refills: 0. ondansetron (ondansetron 4 mg Dis [...] packet) 17 Gram By Mouth every day. polyethylene glycol 3350 (Miralax 3350 17 gram packet) 17 Gram By Mouth every day. Refills: 0. potassium chloride (potassium chloride 10 mEq Cap-ER) 1 Capsules By Mouth every other day. Refills: 2. sodium chloride 2 gram By Mouth 3 times a day. trazodone (traZODONE 150 mg Tab) 1 Tablets By Mouth once a day (at bedtime). Do not give with clonazepam. Refills: 3. PATIENT EDUCATION INFORMATION: Instructions: Urinary Tract Infection, Adult Follow up: With: Address: When: AZUL GORMAN Luis [address] [place] [id number] [facility] (1[employer] In 3 days 07/07/2024 Comments: Please follow-up with your primary provider in the coming days for repeat evaluation take the antibiotics as directed alternate Tylenol Motrin as needed for mild to moderate pain should you been exp (more content not included)... Normal [facility] ED Note-Physicianon 07-04-19 ED Note-Physician ED Note-Physician Basic Information Time Seen: Key Nicole DO 07/04/2024 07:13 Chief Complaint (R) sided flank and ABD pain. States unable to urinate since Friday. Attempted to self cath without relief. History of Present Illness HPI: The patient is a 74-year-old female who presents to the emergency department with herself for suprapubic as well as right flank pain starting this past Friday. She also endorses urinary retention. She denies any injuries or falls. She has been slightly nauseated without emesis. Still having regular bowel movements. She does report a history of self-catheterization for which she has not had to do in quite some time. She states the symptoms are quite typical of her frequent urinary tract infections. She has not been on antibiotics for approximately 3 weeks. She denies any further associated symptoms at this time. Review of Systems Review of systems: CONSTITUTIONAL: Denies fever, sweats, chills. NEURO: Denies difficulty walking, numbness, weakness, tingling, headache. HEENT: Denies sore throat, rhinorrhea, changes in vision. CARDIO: Denies chest pain, palpitations. PULM: Denies shortness of breath, cough. GI: Endorses abdominal pain, nausea. Denies vomiting, diarrhea, constipation, melena, hematochezia. : Endorses urinary retention. Denies painful urination, frequency, hematuria. MSK: Denies recent trauma. SKIN: Denies rash, lesions. ENDOCRINE: Denies unexpected weight-loss. HEME: Denies bleeding disorder. Physical Exam Vitals & Measurements T: 36.8 ???C(Tympanic) HR: 96(Peripheral) RR: 18 BP: 122/69 SpO2: 98% HT: 154.9 cm WT: 63 kg BMI: 26.26 Physical exam: VS: As documented in the triage note from today's date and EMR flowsheet were reviewed. Gen: Well developed. No acute distress. Seated in bed. Appears nontoxic. Alert and oriented to person time place. Skin: Warm. Dry. Intact. No rashes or lesions. Eyes: Pupils equally round and reactive to light. Clear sclera. HENT: Atraumatic appearance. Mucosal membranes moist. No oral lesions, uvula midline, airway patent. CV: Regular rate and regular rhythm. S1, S2. No pedal edema. Warm extremities. Resp: Nonlabored breathing Clear to auscultation bilaterally. No increased work of breathing. GI: Soft and no reproducible abdominal tenderness Pruett sign McBurney's point tenderness is negative no CVA tenderness. No rebound or guarding. Bowel sounds x4 present. MSK: Symmetric muscle bulk. No joint swelling in the extremities. Compartments are soft. Neurovascularly intact x4 extremities. Radial pulses +2 equal bilaterally. Pedal pulses +2 equal bilaterally. Right lower extremity boot in place chronic. Neuro: Alert. Speech fluent. Moving all extremities. No focal deficits. Gait normal. Psych: Disheveled. Images CT abdomen pelvis Medical Decision Making Hospital Course / Medical Decision Making: I reviewed the patient's triage vitals and they are within normal range. Due to the above findings the following was ordered basic labs to include urinalysis bladder scan CT imaging the abdomen pelvis. Lab work overall well-appearing. No signs of anemia. No leukocytosis making systemic infectious etiology less likely. Minimal hyponatremia improved from previous baseline. Otherwise no significant electrolyte derangements renal function is appropriate. Urinalysis is consistent with UTI. I did review previous urine culture sensitivities patient is sensitive to Bactrim therefore this was ordered. She was ordered Toradol for her discomfort. She is reevaluated she is feeling improved. CT imaging shows no acute intra-abdominal findings. All incidental findings were thoroughly discussed with the patient recommend close outpatient follow-up. Feel that patient can be safely discharged home and treated with outpatient antibiotics she is agreeable with this plan. She is to follow-up with her primary provider in the coming days for repeat evaluation. Discharged in stable condition. Patient was retaining minimal postvoid residual of approximately 190 cc through shared medical decision making should prefer to hold off on catheterization she does have supplies at home if she begins to retain more or is not urinating she can catheterize at home. The patient was counseled regarding labs, imaging, likely diagnosis, and plan. All questions were answered. -------- Information provided by patient Past medical history complicating workup frequent urinary tract infections, CKD Previous medical records reviewed CT scan 05/16/2024 Considered catheterization Shared medical decision making prefers to hold off on Choi. -------- Assessment/Plan Suprapubic pain (R10.2: Pelvic and perineal pain) UTI symptoms (R39.9: Unspecified symptoms and signs involving the genitourinary system) Orders: ketorolac, 15 mg = 1 mL, Injection, IV Push, Once, Stop date (more content not included)... Normal [facility] Comment on above: Result Comment: Elec tronically Signed By: Kye Nicole DO\Date and Time Signed: 07/04/24 09:47 EST ED Patient Summaryon 025 ED Patient Summary ED Patient Summary [place] [id number] Patient Discharge Instructions Person Information Name: MAEGAN DYE Age: 74 Years Arrival Date: 07/04/2024 06:53:34 Discharge Diagnosis: Suprapubic pain; UTI symptoms Primary Care Physician: AZUL GORMAN CNP Provider Information Primary Provider: Kye Nicole DO [employer] Vertical:None The exam and treatment you received in the Emergency Department were for an urgent problem and are not intended as complete care. It is important that you follow up with a doctor, nurse practitioner, or physician???s assistant executive housekeeper for ongoing care. If your symptoms become worse or you do not improve as expected and you are unable to reach your usual health care provider, you should return to the Emergency Department. We are available 24 hours a day. MAEGAN DYE has been given the following list of patient education materials, prescriptions and follow-up instructions: Follow-up Instructions: With: Address: When: AZUL GORMAN [address] [place] [id number] [facility] (1) In 3 days 07/07/2024 Comments: Please follow-up with your primary provider in the coming days for repeat evaluation take the antibiotics as directed alternate Tylenol Motrin as needed for mild to moderate pain should you been experiencing fevers pain out of proportion nausea vomiting symptoms concerning to call 911 or return to the nearest emergency department immediately. In the event that this physician does not participate in your insurance network, please consult with your insurance company to find a nearby participating provider. Patient Education Materials: Urinary Tract Infection, Adult A MESSAGE TO ALL PATIENTS REGARDING OPIOIDS PRESCRIPTION OPIOIDS: WHAT YOU NEED TO KNOW Prescription opioids can be used to help relieve bxwoubxr-tu-cvylzv pain and are often prescribed following a [...] as well, even when taken as directed: ??? Tolerance???meaning you might need to take more of the medication for the same pain relief ??? Physical dependence???meaning you have symptoms of withdrawal when a medication is stopped ??? Increased sensitivity to pain ??? Constipation ??? Nausea, vomiting, and dry mouth ??? Sleepiness and dizziness ??? Confusion ??? Depression ??? Low levels of testosterone that can result in lower sex drive, energy, and strength ??? Itching and sweating RISKS ARE GREATER WITH: ??? History of drug misuse, substance use disorder, or overdose ??? Mental health conditions (such as depression or anxiety) ??? Sleep apnea ??? Older age (65 years and older) ??? Avoid alcohol while taking prescription opioids. Also, unless specifically advised by your health care provider, medications to avoid include: ??? Benzodiazepines (such as Xanax or Valium) ??? Muscle relaxants (such as Soma or Flexeril) ??? Hypnotics (such as Ambien or Lunesta) ??? Other prescription opioids KNOW YOUR OPTIONS Talk to your health care provider about ways to manage your pain that don???t involve prescription opioids. Some of these options may actually work better and have fewer risks and side effects. Options may include: ??? Pain relievers such as acetaminophen, ibuprofen, and naproxen ??? Some medication that are also used for depression or seizures ??? Physical therapy and exercise ??? Cognitive behavioral therapy, a psychological, goal-directed approach, in which patients learn how to modify physical, behavioral, and emotional triggers of pain and stress. IF YOU ARE PRESCRIBED OPIOIDS FOR PAIN: ??? Never take opioids in greater amounts or more often than prescribed. ??? Follow up with your primary health care provider. o Work together to create a plan on how to manage your pain. o Talk about ways to help manage your pain that don???t involve prescription opioids. o Talk about any and all concerns and side effects. ??? Help prevent misuse and abuse o Never sell or share prescription opioids. o Never use another person???s prescription opioids. ??? Store prescription opioids in a secure place and out of reach of others (this may include visitors, children, friends, and family). ??? Safely dispose of unused prescription opioids: Find your community drug oral (more content not included)... Normal [facility] HEMATOLOGYOrdered By: SYSTEM SYSTEM on 07-04-2024 Basophils/100 WBC (Bld) 0.5 % Normal 0.0 - 2.0 % Remisol Heme Basophils/Leukocytes Auto (Bld) [Pure # fraction] 0.0 E9/L Normal 0.0 - 0.2 E9/L Remisol Heme Eosinophils (Bld) [#/Vol] 0.1 E9/L Normal 0.0 - 0.5 E9/L Remisol Heme Eosinophils/100 WBC (Bld) 2.0 % Normal 0.0 - 8.0 % Remisol Heme Erythrocyte distribution width (RBC) [Ratio] 13.7 % Normal 10.9 - 14.2 % Remisol Heme Hematocrit (Bld) [Volume fraction] 45.0 % Normal 34.0 - 46.0 % Remisol Heme Hemoglobin (Bld) [Mass/Vol] 14.9 g/dL Normal 12.0 - 16.0 gm/dL Remisol Heme Lymphocytes (Bld) [#/Vol] 1.6 E9/L Normal 1.0 - 4.0 E9/L Remisol Heme Lymphocytes/100 WBC (Bld) 23.2 % Normal 14.0 - 50.0 % Remisol Heme MCH (RBC) [Entitic mass] 29.3 pg Normal 27.0 - 34.0 pg Remisol Heme MCHC (RBC) [Mass/Vol] 33.1 g/dL Normal 31.4 - 36.0 gm/dL Remisol Heme MCV (RBC) [Entitic vol] 88.5 fL Normal 80.0 - 100.0 fL Remisol Heme Monocytes (Bld) [#/Vol] 0.6 E9/L Normal 0.2 - 1.0 E9/L Remisol Heme Monocytes/100 WBC (Bld) 8.3 % Normal 4.0 - 14.0 % Remisol Heme Neutrophils (Bld) [#/Vol] 4.4 E9/L Normal 2.0 - 7.5 E9/L Remisol Heme Neutrophils/100 WBC (Bld) 66.0 % Normal 36.0 - 75.0 % Remisol Heme Platelet mean volume (Bld) [Entitic vol] 7.3 fL Normal 6.4 - 10.8 fL Remisol Heme Platelets (Bld) [#/Vol] 230.0 E9/L Normal 150.0 - 500.0 E9/L Remisol Heme RBC (Bld) [#/Vol] 5.1 E12/L Normal 4.3 - 5.9 E12/L Remisol Heme WBC corrected for nucl RBC Auto (Bld) [#/Vol] 6.7 E9/L Normal 4.0 - 11.0 E9/L Remisol Heme Lipase Levelon 07-04-2024 Lipase [Catalytic activity/Vol] 18 U/L Normal 13-58 [facility] Comment on above: Performed By: #### 2 [id number] #### [facility] [address] [place] [address] UA with Cult [employer] 07-04-19 25 Bacteria Auto Ql (U) 1+ /HPF Abnormal Trace Fish er [facility] Comment on above: Performed By: #### [id number] #### [facility] [address] [place] [address] Bilirubin Ql (U) Negative Normal Negative [facility] Comment on above: Performed By: #### 4 [id number] #### [facility] [address] [place] [address] Clarity (U) Clear Normal Clear [facility] Comment on above: Performed By: #### 4 [id number] #### [facility] [address] [place] [address] Color (U) Colorless Abnormal Yellow [facility] Comment on above: Result Comment: Micr oscopic readings are only performed on those samples that meet specific criteria set forth by [facility]. Performed By: #### 4 [id number] #### [facility] [address] [place] [address] Epithelial cells.squamous Auto (Urine sed) [#/Area] 0-2 Invalid Interpretation Code [facility] Comment on above: Performed By: #### 4 [id number] #### [facility] [address] [place] [address] Glucose Ql (U) Negative Normal Negative [facility] Comment on above: Performed By: #### 4 [id number] #### [facility] [address] [place] [address] Hemoglobin Auto test strip (U) [Mass/Vol] Negative Normal Negative [facility] Comment on above: Performed By: #### 4 [id number] #### [facility] [address] [place] [address] Ketones Auto test strip Ql (U) Negative Normal Negative [facility] Comment on above: Performed By: #### 4 [id number] #### [facility] [address] [place] [address] Leukocyte esterase Auto test strip Ql (U) 250 Gretchen/uL Abnormal Negative [facility] Comment on above: Performed By: #### 4 [id number] #### [facility] [address] [place] [address] Mucus Auto Ql (U) Negative Normal Negative [facility] Comment on above: Performed By: #### 4 [id number] #### [facility] [address] [place] [address] Nitrite Auto test strip Ql (U) Negative Normal Negative [facility] Comment on above: Performed By: #### 4 [id number] #### [facility] [address] [place] [address] pH (U) 6.0 [pH] Invalid Interpretation Code 5.0-9.0 [facility] Comment on above: Performed By: #### 4 [id number] #### [facility] [address] [place] [address] Protein Ql (U) Negative Normal Negative [facility] Comment on above: Performed By: #### 4 [id number] #### [facility] [address] [place] [address] Specific gravity (U) [Rel density] 1.004 Invalid Interpretation Code 1.005-1.03 0 [facility] Comment on above: Performed By: #### 4 [id number] #### [facility] [address] [place] [address] Urobilinogen (U) [Mass/Vol] Negative Normal Negative [facility] Comment on above: Performed By: #### 4 [id number] #### [facility] [address] [place] [address] WBC Auto (Urine sed) [#/Area] 26-30 Abnormal 0-5 [facility] Comment on above: Performed By: #### 4 [id number] #### [facility] [address] [place] [address] Type of Urine collection method Clean Catch Normal [facility] Comment on above: Performed By: #### 4 [id number] #### [facility] [address] [place] [address] URINALYSISOrdered By: SYSTEM SYSTEM on 07-04-2024 Bacteria Auto Ql (U) 1+ /HPF Invalid Interpretation Code Trace/HPF [facility] UA Auto SS Bilirubin Ql (U) Negative Normal Negativemg /dL [facility] Auto SS Clarity (U) Clear (07/04/24 7:37 AM) Normal Clear [facility] UA Auto SS Color (U) Colorless 1 *ABN* (07/04/24 7:37 AM) Invalid Interpretation Code Yellow [facility] UA Auto SS Comment on above: Interpretive Data: M icroscopic readings are only performed on those samples that meet specific criteria set forth by [facility]. Epithelial cells.squamous Auto (Urine sed) [#/Area] 0-2 graded/HPF Invalid Interpretation Code [facility] UA Auto SS Glucose Ql (U) [...] UA Auto SS Mucus Auto Ql (U) Negative Normal Negativegr aded/LPF [facility] UA Auto SS Nitrite Auto test strip Ql (U) Negative Normal Negativemg /dL [facility] UA Auto SS pH (U) 6.0 *NA* (07/04/24 7:37 AM) Invalid Interpretation Code 5.0 - 9.0 [facility] UA Auto SS Protein Ql (U) Negative Normal Negativemg /dL [facility] UA Auto SS Specific gravity (U) [Rel density] 1.004 *NA* (07/04/24 7:37 AM) Invalid Interpretation Code 1.005 - 1.030 [facility] UA Auto SS Urobilinogen (U) [Mass/Vol] Negative Normal Negativemg /dL [facility] UA Auto SS WBC Auto (Urine sed) [#/Area] 26-30 graded/HPF Invalid Interpretation Code 0-5graded/ HPF [facility] UA Auto SS URINALYSISOrdered By: Fuad Nicole on 07-04-2024 UA Spec Desc Clean Catch (07/04/24 7:37 AM) Normal [facility] UA Auto SS Work Phone: eGFRon 07-04-2024 eGFR 66 mL/min/1.73 m2 Normal >=59 [facility] Comment on above: Performed By: #### 1 [id number] #### [facility] [address] [place] [address] C Urineon 06-22-2024 Bacteria identified Cx Nom (U) Microbiology PROCEDURE: Urine Culture [R1] SOURCE: U Random BODY SITE: COLLECTED DATE/TIME: 06/20/2024 13:29 EST RECEIVED DATE/TIME: 06/20/2024 14:26 EST START DATE/TIME: 06/20/2024 14:26 EST FREE TEXT SOURCE: Johny Willson DO, DO, Kevin M. FINAL REPORTS Final Report [] Verified Date/Time: 06/22/2024 10:48 EST 1,000 cfu/ml Mixed skin contaminants Performing Locations R1: This test was performed at: [facility], [address] [place] [address], [id number] , [place], Normal [facility] Comment on above: Performed By: #### 2 [id number] #### [facility] [address] [place] [address] BMPon 06-20-2024 Anion gap [Moles/Vol] 11 mmol/L Normal 6-16 [facility] Comment on above: Performed By: #### 2 [id number] #### [facility] [address] [place] [address] Calcium [Mass/Vol] 9.4 mg/dL Normal 8.9-11.1 [facility] Comment on above: Performed By: #### 2 [id number] #### [facility] [address] [place] [address] Chloride [Moles/Vol] 98 mmol/L Low 101-111 [facility] Comment on above: Performed By: #### 2 [id number] #### [facility] [address] [place] [address] CO2 [Moles/Vol] 30 mmol/L Normal 21-31 [facility] Comment on above: Performed By: #### 2 [id number] #### [facility] [address] [place] [address] Creatinine [Mass/Vol] 1.0 mg/dL Normal 0.5-1.3 [facility] Comment on above: Performed By: #### 2 [id number] #### [facility] [address] [place] [address] Glucose [Mass/Vol] 115 mg/dL Normal 55-199 [facility] Comment on above: Performed By: #### 2 [id number] #### [facility] [address] [place] [address] Potassium [Moles/Vol] 3.6 mmol/L Normal 3.5-5.3 [facility] Comment on above: Performed By: #### 2 [id number] #### [facility] [address] [place] [address] Sodium [Moles/Vol] 135 mmol/L Normal 135-145 [facility] Comment on above: Performed By: #### 2 [id number] #### [facility] [address] [place] [address] Urea nitrogen [Mass/Vol] 12 mg/dL Normal 5-21 [facility] Comment on above: Performed By: #### 2 [id number] #### [facility] [address] [place] [address] Urea nitrogen/Creatinine [Mass ratio] 12 No Units Normal 10-20 [facility] Comment on above: Performed By: #### 2 [id number] #### [facility] [address] [place] [address] CBC w/ Auto Diffon 5 Basophils/100 WBC (Bld) 1.1 % Normal 0.0-2.0 [facility] Comment on above: Performed By: #### 2 [id number] #### [facility] [address] [place] [address] Basophils/Leukocytes Auto (Bld) [Pure # fraction] 0.1 E9/L Normal 0.0-0.2 [facility] Comment on above: Performed By: #### 2 [id number] #### [facility] [address] [place] [address] Eosinophils (Bld) [#/Vol] 0.1 E9/L Normal 0.0-0.5 [facility] Comment on above: Performed By: #### 2 [id number] #### [facility] [address] [place] [address] Eosinophils/100 WBC (Bld) 0.7 % Normal 0.0-8.0 [facility] Comment on above: Performed By: #### 2 [id number] #### [facility] [address] [place] [address] Erythrocyte distribution width (RBC) [Ratio] 13.7 % Normal 10.9-14.2 [facility] Comment on above: Performed By: #### 2 [id number] #### [facility] [address] [place] [address] Hematocrit (Bld) [Volume fraction] 41.8 % Normal 34.0-46.0 [facility] Comment on above: Performed By: #### 2 [id number] #### [facility] [address] [place] [address] Hemoglobin (Bld) [Mass/Vol] 14.0 g/dL Normal 12.0-16.0 [facility] Comment on above: Performed By: #### 2 [id number] #### [facility] [address] [place] [address] Lymphocytes (Bld) [#/Vol] 1.9 E9/L Normal 1.0-4.0 [facility] Comment on above: Performed By: #### 2 [id number] #### [facility] [address] [place] [address] Lymphocytes/100 WBC (Bld) 22.3 % Normal 14.0-50.0 [facility] Comment on above: Performed By: #### 2 [id number] #### [facility] [address] [place] [address] MCH (RBC) [Entitic mass] 29.0 pg Normal 27.0-34.0 [facility] Comment on above: Performed By: #### 2 [id number] #### [facility] [address] [place] [address] MCHC (RBC) [Mass/Vol] 33.4 g/dL Normal 31.4-36.0 [facility] Comment on above: Performed By: #### 2 [id number] #### [facility] [address] [place] [address] MCV (RBC) [Entitic vol] 87.0 fL Normal 80.0-100.0 [facility] Comment on above: Performed By: #### 2 [id number] #### [facility] [address] [place] [address] Monocytes (Bld) [#/Vol] 0.7 E9/L Normal 0.2-1.0 [facility] Comment on above: Performed By: #### 2 [id number] #### [facility] [address] [place] [address] Neutrophils (Bld) [#/Vol] 5.8 E9/L Normal 2.0-7.5 [facility] Comment on above: Performed By: #### 2 [id number] #### [facility] [address] [place] [address] Neutrophils/100 WBC (Bld) 67.7 % Normal 36.0-75.0 [facility] Comment on above: Performed By: #### 2 [id number] #### [facility] [address] [place] [address] Platelet mean volume (Bld) [Entitic vol] 7.3 fL Normal 6.4-10.8 [facility] Comment on above: Performed By: #### 2 [id number] #### [facility] [address] [place] [address] Platelets (Bld) [#/Vol] 264.0 E9/L Normal 150.0-500. 0 [facility] Comment on above: Performed By: #### 2 [id number] #### [facility] [address] [place] [address] RBC (Bld) [#/Vol] 4.8 E12/L Normal 4.3-5.9 [facility] Comment on above: Performed By: #### 2 [id number] #### [facility] [address] [place] [address] WBC corrected for nucl RBC Auto (Bld) [#/Vol] 8.6 E9/L Normal 4.0-11.0 [facility] Comment on above: Performed By: #### 2 [id number] #### [facility] [address] [place] [address] CHEMISTRYOrdered By: SYSTEM SYSTEM on 06-20-2024 Anion gap [Moles/Vol] 11 mmol/L Normal 6 - 16 mEq/L [facility] Calcium [Mass/Vol] 9.4 mg/dL Normal 8.9 - 11. 1 mg/dL [facility] Chloride [Moles/Vol] 98 mmol/L Low 101 - 1 11 mmol/L [facility] CO2 [Moles/Vol] 30 mmol/L Normal 21 - 31 mmol/L [facility] Creatinine [Mass/Vol] 1.0 mg/dL Normal 0.5 - 1.3 mg/dL [facility] eGFR 58 mL/min/1.73 m2 Low >=59mL/min /1.73 m2 [facility] Glucose [Mass/Vol] 115 mg/dL Normal 55 - 199 mg/dL [facility] Potassium [Moles/Vol] 3.6 mmol/L Normal 3.5 - 5.3 mmol/L [facility] Sodium [Moles/Vol] 135 mmol/L Normal 135 - 145 mmol/L [facility] Urea nitrogen [Mass/Vol] 12 mg/dL Normal 5 - 21 mg/dL [facility] Urea nitrogen/Creatinine [Mass ratio] 12 mg/mg Normal 10 - 20 [facility] ED Clinical Summaryon 2024 ED Clinical Summary ED Clinical Summary [place] [id number] ED Clinical Summary Person Information Name: MAEGAN DYE/[facility] Age: 74 Years : 1950 Sex: Female Language: Dutch PCP: AZUL GORMAN CNP Marital Status: Visit Id: Visit Reason: Urinary frequency; Medical problem - minor; SEEN AT URGENT CARE - CONFUSION - POSS UTI Speciality: Acuity: 3 Enc Type: Emergency Med Service: Emergency Arrival: 06/20/2024 11:46:11 Discharge: 06/20/2024 14:49:47 LOS: 000 03:03 Checkin: 06/20/2024 11:46:11 Checkout: 06/20/2024 14:49:47 Dispo Type: Home (Routine DC) EVENTS: Event Name Event Status Request Date/Time Start Date/Time Complete Date/Time Arrive Complete 06/20/2024 11:46:11 06/20/2024 11:46:11 06/20/2024 11:46:11 Document Home Meds Request 06/20/2024 11:46:11 Triage Complete 06/20/2024 11:46:11 06/20/2024 11:59:18 06/20/2024 11:59:18 Registration Complete 06/20/2024 11:49:12 06/20/2024 11:49:12 06/20/2024 11:49:12 Reg Complete Request 06/20/2024 11:49:12 Reg Bed Request Complete 06/20/2024 11:49:12 06/20/2024 11:49:12 06/20/2024 11:49:12 Bed Assign Complete 06/20/2024 11:51:10 06/20/2024 11:51:10 06/20/2024 11:51:10 Dr Exam Complete 06/20/2024 11:51:10 06/20/2024 11:52:31 06/20/2024 11:52:31 RN Exam Complete 06/20/2024 11:51:10 06/20/2024 12:00:56 06/20/2024 12:00:56 Registration Request 06/20/2024 11:52:31 EKG Complete 06/20/2024 11:56:05 06/20/2024 12:05:53 Isolation Screening Request 06/20/2024 11:59:19 Pending Labs Complete 06/20/2024 12:16:10 06/20/2024 13:41:55 Pending Labs Complete 06/20/2024 12:26:28 06/20/2024 13:23:20 Lab Complete 06/20/2024 12:26:28 06/20/2024 13:23:20 Pending Labs Complete 06/20/2024 12:57:26 06/20/2024 12:57:26 06/20/2024 13:23:20 Lab Complete 06/20/2024 12:57:26 06/20/2024 12:57:26 06/20/2024 13:23:20 Pending Labs Complete 06/20/2024 12:59:07 06/20/2024 12:59:07 06/20/2024 12:59:07 Pending Labs Inlab 06/20/2024 13:41:55 06/20/2024 13:41:55 Lab Inlab 06/20/2024 13:41:55 06/20/2024 13:41:55 Discharge Complete 06/20/2024 14:43:05 06/20/2024 14:49:52 06/20/2024 14:49:52 Transfer Complete 06/20/2024 14:49:52 06/20/2024 14:49:52 06/20/2024 14:49:52 ADDRESS: [facility] [address] [facility] [id number] PHYS DOC NOTES: MEDICAL INFORMATION: Prescriptions Given: Medications to Continue with No Changes Other Medications amlodipine (amLODIPine 5 mg Tab) 1 Tablets By Mouth every day. TAKE 1 TABLET BY MOUTH EVERY DAY. celecoxib (celecoxib 200 mg Cap) TAKE 1 CAPSULE BY MOUTH EVERY DAY. cephalexin (Keflex 500 mg Cap) 1 Capsules By Mouth every 8 hours for 7 Days. Refills: 0. clonazepam (clonazepam 1 mg Tab) 1 Tablets By Mouth 3 times a day. TAKE 1 TABLET BY MOUTH THREE TIMES A DAY NEEDED FOR ANXIETY. Refills: 0. docusate (Colace 100 mg Cap) 1 Capsules By Mouth 2 times a day. Hold for diarrhea. Refills: 0. docusate (Colace 100 mg Cap) 1 Capsules By Mouth 2 times a day. Refills: 0. Ensure (Ensure Vanilla) Drink 1 bottle (8 fl. oz.) BID. Refills: 5. fluticasone nasal (fluticasone 0.05 mg/inh Nasal [place]) 2 Sprays Nasal Inhalation every day. each nostril. Refills: 5. loratadine (loratadine 10 mg oral capsule) 1 Capsules By Mouth every day. [facility] Prescription (Walker) Dispense one walker. Refills: 0. olanzapine (olanzapine 7.5 mg oral tablet) 1 Tablets By Mouth once a day (at bedtime). ondansetron (ondansetron 4 mg Dis Tab) 1 Tablets By Mouth every 6 hours as needed Nausea/Vomiting. Refills: 0. ondansetron (ondansetron 4 mg Dis [...] packet) 17 Gram By Mouth every day. polyethylene glycol 3350 (Miralax 3350 17 gram packet) 17 Gram By Mouth every day. Refills: 0. potassium chloride (potassium chloride 10 mEq Cap-ER) 1 Capsules By Mouth every other day. Refills: 2. sodium chloride 2 gram By Mouth 3 times a day. sulfamethoxazole-trimethop rim (sulfamethoxazole-trimetho prim 400 mg-80 mg Tab) trazodone (traZODONE 150 mg Tab) 1 Tablets By Mouth once a day (at bedtime). Do not give with clonazepam. Refills: 3. PATIENT EDUCATION INFORMATION: Instructions: Medical Screening Exam Follow up: With: Address: When: [place] [address] Business (1) In 3 days 06/23/2024 Comments: Call the office of your primary care doctor to arrange for follow-up within the above-stated timeframe. Follow-up with your primary care doctor about this ED visit. You should review your labs, imaging, and diagnoses from this ED visit with your primary care physician. There are occasionally non-emergent findings that require additional follow-up aft (more content not included)... Normal [facility] ED Note-Physicianon 06-20-19 ED Note-Physician ED Note-Physician Basic Information Time Seen: Johny Willson DO 06/20/2024 11:52 Chief Complaint pt presents to the ER d/t confusion. per son positive for UTI from urgent care. son states started on keflex. per pt she is not confused and son is trying to get rid of her History of Present Illness 74-year-old female to the emergency department chief complaint of concern for UTI. Patient reports she has had some dysuria. Son reports she made some strange comments today asking where her daughter was. Patient reports that she is not confused. She was just asking him a straight question. Son is frustrated with her. Patient has no concerns at this time. She is currently on Keflex for a UTI. Review of Systems A 10 point review of systems is negative except as noted above. Medical and Surgical History: Reviewed and noted Social history: Lives at home Tobacco: Denies Physical Exam Vitals & Measurements T: 36.7 ???C(Oral) HR: 71(Monitored) RR: 17 BP: 122/74 SpO2: 95% HT: 154 cm WT: 63 kg BMI: 26.56 VITALS: I have reviewed the triage vital signs. GENERAL: Well developed, well appearing adult in no acute distress. NEURO: Alert and oriented x 4. Moves all extremities. Face is symmetric and expressive. EYES: PERRL. No scleral icterus or conjunctival injection. No discharge. HENT: Normocephalic, atraumatic. Hearing is grossly intact. Nares grossly patent and without discharge. Mucous membranes moist. NECK: No JVD. Patient moves neck without restriction. CARDIO: Rhythm regular. Normal rate. No murmur, rub, or gallop. Pulses equal bilaterally in the upper and lower extremity. No lower extremity edema. PULM: Lungs clear to auscultation in all cutler. No wheezes, rales, or rhonchi. No conversational dyspnea. No splinting, stridor, or accessory muscle use. GI/: Abdomen is soft and non-tender. Normoactive bowel sounds. EXTREMITIES: Symmetric muscle bulk. No joint swelling. No clubbing, cyanosis, or deformity. SKIN: Warm and dry. Normal turgor. No rash or lesions appreciated. PSYCH: Mood, affect, and interaction is appropriate to the setting. Medical Decision Making 74-year-old female very well-known to this department and myself. Vital stable, the patient is afebrile. She is not altered. She is at her baseline health. Urinalysis and labs are unremarkable. Patient was discharged home to the care of her son. Assessment/Plan Dysuria (R30.0: Dysuria) Orders: Basic Metabolic Panel CBC w/ Auto Diff eGFR Extra Blue Tube Extra SST Tube UA with Cult Rflx Urine Culture Disposition Plan Patient Discharge Condition Stable Discharge Disposition Home Discharge Prescription List Prescriptions No active prescription medications Follow-up With When Contact Information AZUL GORMAN In 3 days 06/23/2024 EST [address] [place] [address] Business (1) Additional Instructions: Call the office of your primary care doctor [...] you develop any new or worsening symptoms. Patient Education Medical Screening Exam Problem List/Past Medical History Ongoing Acute UTI [...] Vitamin D deficiency Historical Accidental fall Agent [place] ASTHMA Benzodiazepine withdrawal Bipolar disorder Callus of [...] HTN - Hypertension Hypertension Hypo-osmolality and or hyponatremia Hyp (more content not included)... Normal [facility] Comment on above: Result Comment: Elec tronically Signed By: Johny Willson DO\.br\Date and Time Signed: 06/20/24 15:39 EST ED Patient Summaryon 025 ED Patient Summary ED Patient Summary [place] [id number] Patient Discharge Instructions Person Information Name: MAEGAN DYE Age: 74 Years Arrival Date: 06/20/2024 11:46:11 Discharge Diagnosis: Dysuria Primary Care Physician: AZUL GORMAN CNP Provider Information Primary Provider: Johny Willson DO [employer] Up [employer] Vertical:None The exam and treatment you received in the Emergency Department were for an urgent problem and are not intended as complete care. It is important that you follow up with a doctor, nurse practitioner, or physician???s assistant executive housekeeper for ongoing care. If your symptoms become worse or you do not improve as expected and you are unable to reach your usual health care provider, you should return to the Emergency Department. We are available 24 hours a day. MAEGAN DYE has been given the following list of patient education materials, prescriptions and follow-up instructions: Follow-up Instructions: With: Address: When: [place] [address] Business (1) In 3 days 06/23/2024 Comments: Call the office of your primary care doctor [...] you develop any new or worsening symptoms. In the event that this physician does not participate in your insurance network, please consult with your insurance company to find a nearby participating provider. Patient Education Materials: Medical Screening Exam A MESSAGE TO ALL PATIENTS REGARDING OPIOIDS PRESCRIPTION OPIOIDS: WHAT YOU NEED TO KNOW Prescription opioids can be used to help relieve [id number]-[id number] pain and are often prescribed following a [...] as well, even when taken as directed: ??? Tolerance???meaning you might need to take more of the medication for the same pain relief ??? Physical dependence???meaning you have symptoms of withdrawal when a medication is stopped ??? Increased sensitivity to pain ??? Constipation ??? Nausea, vomiting, and dry mouth ??? Sleepiness and dizziness ??? Confusion ??? Depression ??? Low levels of testosterone that can result in lower sex drive, energy, and strength ??? Itching and sweating RISKS ARE GREATER WITH: ??? History of drug misuse, substance use disorder, or overdose ??? Mental health conditions (such as depression or anxiety) ??? Sleep apnea ??? Older age (65 years and older) ??? Avoid alcohol while taking prescription opioids. Also, unless specifically advised by your health care provider, medications to avoid include: ??? Benzodiazepines (such as Xanax or Valium) ??? Muscle relaxants (such as Soma or Flexeril) ??? Hypnotics (such as Ambien or Lunesta) ??? Other prescription opioids KNOW YOUR OPTIONS Talk to your health care provider about ways to manage your pain that don???t involve prescription opioids. Some of these options may actually work better and have fewer risks and side effects. Options may include: ??? Pain relievers such as acetaminophen, ibuprofen, and naproxen ??? Some medication that are also used for depression or seizures ??? Physical therapy and exercise ??? Cognitive behavioral therapy, a psychological, goal-directed approach, in which patients learn how to modify physical, behavioral, and emotional triggers of pain and stress. IF YOU ARE PRESCRIBED OPIOIDS FOR PAIN: ??? Never take opioids in greater amounts or more often than prescribed. ??? Follow up with your primary health care provider. o Work together to create a plan on how to manage your pain. o Talk about ways to help manage your pain that don???t involve prescription opioids. o Talk about any and all concerns and side effects. ??? Help prevent misuse and abuse o Never sell or share prescription opioids. o Never use another person???s prescription opioids. ??? Stor (more content not included)... Normal [facility] Extra Blueon 06-20-2024 Tube Collected Plasma Yes Invalid Interpretation Code [facility] Comment on above: Performed By: #### 1 [id number] #### [facility] [address] [place] [id number] HEMATOLOGYOrdered By: SYSTEM SYSTEM on 06-20-2024 Basophils/100 WBC (Bld) 1.1 % Normal 0.0 - 2.0 % Remisol Heme Basophils/Leukocytes Auto (Bld) [Pure # fraction] 0.1 E9/L Normal 0.0 - 0.2 E9/L Remisol Heme Eosinophils (Bld) [#/Vol] 0.1 E9/L Normal 0.0 - 0.5 E9/L Remisol Heme Eosinophils/100 WBC (Bld) 0.7 % Normal 0.0 - 8.0 % Remisol Heme Erythrocyte distribution width (RBC) [Ratio] 13.7 % Normal 10.9 - 14.2 % Remisol Heme Hematocrit (Bld) [Volume fraction] 41.8 % Normal 34.0 - 46.0 % Remisol Heme Hemoglobin (Bld) [Mass/Vol] 14.0 g/dL Normal 12.0 - 16.0 gm/dL Remisol Heme Lymphocytes (Bld) [#/Vol] 1.9 E9/L Normal 1.0 - 4.0 E9/L Remisol Heme Lymphocytes/100 WBC (Bld) 22.3 % Normal 14.0 - 50.0 % Remisol Heme MCH (RBC) [Entitic mass] 29.0 pg Normal 27.0 - 34.0 pg Remisol Heme MCHC (RBC) [Mass/Vol] 33.4 g/dL Normal 31.4 - 36.0 gm/dL Remisol Heme MCV (RBC) [Entitic vol] 87.0 fL Normal 80.0 - 100.0 fL Remisol Heme Monocytes (Bld) [#/Vol] 0.7 E9/L Normal 0.2 - 1.0 E9/L Remisol Heme Monocytes/100 WBC (Bld) 8.2 % Normal 4.0 - 14.0 % Remisol Heme Neutrophils (Bld) [#/Vol] 5.8 E9/L Normal 2.0 - 7.5 E9/L Remisol Heme Neutrophils/100 WBC (Bld) 67.7 % Normal 36.0 - 75.0 % Remisol Heme Platelet mean volume (Bld) [Entitic vol] 7.3 fL Normal 6.4 - 10.8 fL Remisol Heme Platelets (Bld) [#/Vol] 264.0 E9/L Normal 150.0 - 500.0 E9/L Remisol Heme RBC (Bld) [#/Vol] 4.8 E12/L Normal 4.3 - 5.9 E12/L Remisol Heme WBC corrected for nucl RBC Auto (Bld) [#/Vol] 8.6 E9/L Normal 4.0 - 11.0 E9/L Remisol Heme UA with Cult Rflxon 06-20-19 25 Bacteria Auto Ql (U) Trace Normal Trace Fish [facility] Comment on above: Performed By: #### 4 [id number] #### [facility] [address] [place] [address] Bilirubin Ql (U) Negative Normal Negative [facility] Comment on above: Performed By: #### 4 [id number] #### [facility] [address] [place] [address] Clarity (U) Clear Normal Clear [facility] Comment on above: Performed By: #### 4 [id number] #### [facility] [address] [place] [address] Color (U) Colorless Abnormal Yellow [facility] Comment on above: Result Comment: Micr oscopic readings are only performed on those samples that meet specific criteria set forth by [facility]. Performed By: #### 4 [id number] #### [facility] [address] [place] [address] Epithelial cells.squamous Auto (Urine sed) [#/Area] 0-2 Invalid Interpretation Code [facility] Comment on above: Performed By: #### 4 [id number] #### [facility] [address] [place] [address] Glucose Ql (U) Negative Normal Negative [facility] Comment on above: Performed By: #### 4 [id number] #### [facility] [address] [place] [address] Hemoglobin Auto test strip (U) [Mass/Vol] Negative Normal Negative [facility] Comment on above: Performed By: #### 4 [id number] #### [facility] [address] [place] [address] Ketones Auto test strip Ql (U) Negative Normal Negative [facility] Comment on above: Performed By: #### 4 [id number] #### [facility] [address] [place] [address] Leukocyte esterase Auto test strip Ql (U) 75 Gretchen/uL Abnormal Negative [facility] Comment on above: Performed By: #### 4 [id number] #### [facility] [address] [place] [address] Mucus Auto Ql (U) Negative Normal Negative [facility] Comment on above: Performed By: #### 4 [id number] #### [facility] [address] [place] [address] Nitrite Auto test strip Ql (U) Negative Normal Negative [facility] Comment on above: Performed By: #### 4 [id number] #### [facility] [address] [place] [address] pH (U) 7.0 [pH] Invalid Interpretation Code 5.0-9.0 [facility] Comment on above: Performed By: #### 4 [id number] #### [facility] [address] [place] [address] Protein Ql (U) Negative Normal Negative [facility] Comment on above: Performed By: #### 4 [id number] #### [facility] [address] [place] [id number] Specific gravity (U) [Rel density] 1.006 Invalid Interpretation Code 1.005-1.03 0 [facility] Comment on above: Performed By: #### 4 [id number] #### [facility] [address] [place] [address] Urobilinogen (U) [Mass/Vol] Negative Normal Negative [facility] Comment on above: Performed By: #### 4 [id number] #### [facility] [address] [place] [address] WBC Auto (Urine sed) [#/Area] 0-5 Normal 0-5 [facility] Comment on above: Performed By: #### 4 [id number] #### [facility] [address] [place] [address] Type of Urine collection method Clean Catch Normal [facility] Comment on above: Performed By: #### 4 [id number] #### [facility] [address] [place] [address] URINALYSISOrdered By: SYSTEM SYSTEM on 06-20-2024 Bacteria Auto Ql (U) Trace /HPF Normal Trace/HPF [facility] UA Auto SS Bilirubin Ql (U) Negative Normal Negativemg /dL [facility] UA Auto SS Clarity (U) Clear (06/20/24 1:29 PM) Normal Clear [facility] UA Auto SS Color (U) Colorless 1 *ABN* (06/20/24 1:29 PM) Invalid Interpretation Code Yellow [facility] UA Auto SS Comment on above: Interpretive Data: M icroscopic readings are only performed on those samples that meet specific criteria set forth by [facility]. Epithelial cells.squamous Auto (Urine sed) [#/Area] 0-2 graded/HPF Invalid Interpretation Code [facility] UA Auto SS Glucose Ql (U) Negative Normal Negativemg /dL [facility] UA Auto SS Hemoglobin Auto test strip (U) [Mass/Vol] Negative Normal Negativemg /dL [facility] UA Auto SS Ketones Auto test strip Ql (U) Negative Normal Negativemg /dL [facility] UA Auto SS Leukocyte esterase Auto test strip Ql (U) 75 Gretchen/uL Gretchen/uL Invalid Interpretation Code NegativeLe u/uL [facility] UA Auto SS Mucus Auto Ql (U) Negative Normal Negativegr aded/LPF [facility] UA Auto SS Nitrite Auto test strip Ql (U) Negative Normal Negativemg /dL [facility] UA Auto SS pH (U) 7.0 *NA* (06/20/24 1:29 PM) Invalid Interpretation Code 5.0 - 9.0 [facility] UA Auto SS Protein Ql (U) Negative Normal Negativemg /dL [facility] UA Auto SS Specific gravity (U) [Rel density] 1.006 *NA* (06/20/24 1:29 PM) Invalid Interpretation Code 1.005 - 1.030 [facility] UA Auto SS Urobilinogen (U) [Mass/Vol] Negative Normal Negativemg /dL [facility] UA Auto SS WBC Auto (Urine sed) [#/Area] 0-5 graded/HPF Normal 0-5graded/ HPF [facility] UA Auto SS URINALYSISOrdered By: Johny Willson on 06-20-2024 UA Spec Desc Clean Catch (06/20/24 1:29 PM) Normal [facility] UA Auto SS Work Phone: eGFRon 06-20-2024 eGFR 58 mL/min/1.73 m2 Low >=59 [facility] Comment on above: Performed By: #### 1 [id number] #### [facility] [address] [place] [address] C Urineon 06-19-2024 Bacteria identified Cx Nom (U) Microbiology PROCEDURE: Urine Culture [R1] SOURCE: U CleanCatch BODY SITE: COLLECTED DATE/TIME: 06/17/2024 14:21 EST RECEIVED DATE/TIME: 06/17/2024 16:05 EST START DATE/TIME: 06/17/2024 16:05 EST FREE TEXT SOURCE: Tio BYRD, Adrian Barker. Tio BYRD, Adrian Barker. FINAL REPORTS Final Report [] Verified Date/Time: 06/19/2024 09:29 EST 2,000 cfu/ml Mixed skin contaminants Performing Locations R1: This test was performed at: [facility], [address] [place] [address], [id number] , [place], Normal [facility] Comment on above: Performed By: #### 2 [id number] #### [facility] [address] [place] [address] Family Medicine Office/Clini c Noteon 06-18-2024 Family Medicine Office/Clinic Note Family Medicine Office/Clinic Note Chief Complaint dysuria HPI Staff 74 year old female presents with foul smelling urine and confusion for the past week back pain, dysuria hx of spinal injury that caused bladder weakness, frequent utis ( usually every 2 weeks) History of Present Illness I have reviewed and verified the staff HPI to be accurate for this encounter. Portions of this record have been created with voice recognition software. Occasional wrong-word or ???[id number]??? substitutions may have occurred due to the inherent limitations of voice recognition software. 74 yo female with history of bipolar disorder, fall risk Charcot's joint of right foot, chronic kidney disease stage III, COPD, hypertension, sleep apnea, PTSD, self-care deficit presents today with her son with cc of foul smelling urine and increase in confusion x 1 week duration. pt also notes low back discomfort, and burning with urination. She does have history of some chronic back pain following a spinal surgery that has caused bladder weakness states she gets frequent UTIs usually every about 2 weeks. Son states that he lives with the patient states she has had some intermittent nausea and vomiting is unsure how long it has been going on states that he does school work during the day online classes so states he had not really been around her much today states he has noticed foul-smelling urine and states he can smell and even in the hallway when she is in the restroom. Does not feel like she gets up all the time to go and sometimes has incontinence. Patient states that she has seen urology in the past currently sees someone in [facility] son states that is in [place] previously saw Dr. Grimm urology send states that the only provider that would see the patient they had spoken with patient in regards to Choi catheter permanently however patient declined. Patient has history of UTIs she states following a back surgical procedure which caused issues with her bladder. States she just has not been feeling well send states increasing confusion which is typically noted when patient has a urinary tract infection. Patient denies fever chills states some nausea now but denies any vomiting episodes today. No loose stools or diarrhea. Patient does not see GI person and has not recently followed up with primary care provider. They have no other concerns at this time. Review of Systems PHQ Score Initial Depression Screen Score: 0 SCORE ROS negative unless otherwise stated in HPI. Physical Exam Vitals & Measurements T: 37 ???C(Tympanic) HR: 76(Peripheral) BP: 118/64 SpO2: 94% HT: 61 in HT: 154 cm WT: 63 kg WT: 138.891 lb BMI: 26.56 General: Very thin elderly female present with son today, sitting upright in the exam chair no acute distress sitting with an emesis bag as she states she is nauseated in office today Eyes: not assessed Ears: not assessed Nose: not addressed Mouth: not assessed Neck: not assessed Lungs: Lung sounds are clear bilaterally. No wheezing rhonchi or crackles on exam Cardio: S1, S2, regular rhythm. No murmurs gallops or rubs. Abdomen: Bowel sounds are present x 4 quadrants. Abdomen is soft, nontender, nondistended. No rigidity rebound or guarding on exam. Musculoskeletal: No CVA tenderness. No flank pain. Extremity: Patient walked back and convening care with use of cane son holding the other arm wears a brace on the right foot in regards to history of Charcot's joint. Neurologic: not assessed Skin: not assessed Mental Status: Alert and oriented x3. Normal mood and affect Assessment/Plan Patient was able to give us a urine specimen in office today. Urine dip shows small leukocytes negative glucose negative ketone negative nitrite I updated patient in regards to this result the patient has an extensive history in regards to urinary tract complaints in which I believe appropriate to leave start patient on antibiotic at this time, while waiting for culture. Prior to discharge patient needed to use the restroom again in which son came out and asked for him possibly a new referral to urology states patient has seen Dr. Grimm in the past but states she does not want to see him see somebody in [place] but does not really want to go back to that office. I discussed that at some point the patient may have to think about what the specialist has been suggesting to her with such significant history of reoccurring UTI per patient and son in which patient is understanding and is aware otherwise she will need close follow-up with primary care discussed with son if patient were develop fever chills weakness abdominal pain with nausea vomiting flank pain with nausea vomiting or for any other worsening or concerning symptoms they should seek ER for reevaluation which patient and son both agree and understand plan. 1. UTI (urinary tract infection) (N39.0: Urinary tract infection, site not specified) UA with small leukocytes . Will treat with keflex 500 mg tid x 7 days. PRN pyridi (more content not included)... Normal [facility] Comment on above: Result Comment: Elec tronically Signed By: Adrian Kinsey PA-C\.br\Date and Time Signed: 06/18/24 15:57 EST Ambulatory Visit Summaryon 0 06-17-2024 Ambulatory Visit Summary Ambulatory Visit Summary MAEGAN DYE :1950 Visit Date:06/17/2024 Ambulatory Visit Instructions Your Diagnosis UTI (urinary tract infection) Dysuria Your Care Team Attending Physician - Adrian Kinsey PA-C Primary Care Physician - AZUL GORMAN CNP This Is Your Medications List cephalexin (Keflex 500 mg Cap) phenazopyridine (Pyridium 100 mg Tab) Contact prescribing physician if questions or concerns Ensure (Ensure Vanilla) Misc Prescription (Walker) amlodipine (amLODIPine 5 mg Tab) celecoxib (celecoxib 200 mg Cap) clonazepam (clonazepam 1 mg Tab) docusate (Colace 100 mg Cap) docusate (Colace 100 mg Cap) fluticasone nasal (fluticasone 0.05 mg/inh Nasal Mulberry) loratadine (loratadine 10 mg oral capsule) olanzapine (olanzapine 7.5 mg oral tablet) ondansetron (Zofran ODT 4 mg Tab-Dis) ondansetron (ondansetron 4 mg Dis Tab) ondansetron (ondansetron 4 mg Dis Tab) pantoprazole (Pantoprazole [address] Tab) polyethylene glycol 3350 (Miralax 17 gram packet) polyethylene glycol 3350 (Miralax 3350 17 gram packet) potassium chloride (potassium chloride 10 mEq Cap-ER) sodium chloride sulfamethoxazole-trimethop rim (sulfamethoxazole-trimetho prim 400 mg-80 mg Tab) trazodone (traZODONE 150 mg Tab) Procedures Performed Urodynamics (07/06/2019), cysto w/ UD (07/05/2019), left femur ORIF w femoral cortical strut graft (10/04/2016), lt bipolar hemiarthroplasty (08/30/2016), Appendectomy, Cardiovascular stress test using pharmacologic stress agent, Cataract Surgery-Bilateral Eye, section, foot surgery right, I&D, 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 Discharge Vitals Temperature (Tympanic) 37 ???C Heart Rate (Peripheral) 76 Blood Pressure 118/64 Height 154 cm Height 61 in Weight 63 kg Weight 138.891 lb BMI 26.56 What to do next You Need to Schedule the Following Appointments Follow Up with AZUL GORMAN CNP When: Where: [facility] [place] [place] [address]- Medications What How Much When Why Instructions New cephalexin (Keflex 500 mg Cap) 1 Capsules By Mouth Every 8 hours UTI (urinary tract infection) Duration: 7 Days Pickup at [facility]/pharmacy #[id number] New phenazopyridine (Pyridium 100 mg Tab) 1 Tablets By Mouth 3 times a day UTI (urinary tract infection) Duration: 3 Days Pickup at [facility]/pharmacy #[id number] Unchanged amlodipine (amLODIPine 5 mg Tab) 1 Tablets By Mouth Every day TAKE 1 TABLET BY MOUTH EVERY DAY Contact prescribing physician if questions or concerns Unchanged celecoxib (celecoxib 200 mg Cap) TAKE 1 CAPSULE BY MOUTH EVERY DAY Contact prescribing physician if questions or concerns Unchanged clonazepam (clonazepam 1 mg Tab) 1 Tablets By Mouth 3 times a day TAKE 1 TABLET BY MOUTH THREE TIMES A DAY NEEDED FOR ANXIETY Contact prescribing physician if questions or concerns Unchanged docusate (Colace 100 mg Cap) 1 Capsules By Mouth 2 times a day Hold for diarrhea Contact prescribing physician if questions or concerns Unchanged docusate (Colace 100 mg Cap) 1 Capsules By Mouth 2 times a day Contact prescribing physician if questions or concerns Unchanged Ensure (Ensure Vanilla) See instructions Drink 1 bottle (8 fl. oz.) BID Contact prescribing physician if questions or concerns Unchanged fluticasone nasal (fluticasone 0.05 mg/ inh Nasal Mulberry) 2 Sprays Nasal Inhalation Every day each nostril Contact prescribing physician if questions or concerns Unchanged loratadine (loratadine 10 mg oral capsule) 1 Capsules By Mouth Every day Contact prescribing physician if questions or concerns Unchanged Misc Prescription (Walker) See instructions Dispense one walker Contact prescribing physician if questions or concerns Unchanged olanzapine (olanzapine 7.5 mg oral tablet) 1 Tablets By Mouth Once a day (at bedtime) Contact prescribing physician if questions or concerns Unchanged ondansetron (ondansetron 4 mg Dis Tab) 1 Tablets By Mouth Every 6 hours as needed for Nausea/Vomiting Contact prescribing physician if questions or concerns Unchanged ondansetron (ondansetron 4 mg Dis Tab) 1 Tablets By Mouth Every 6 hours as needed for Nausea/Vomiting Contact prescribing physician if questions or concerns Unchanged ondansetron (Zofran ODT 4 mg Tab-Dis) 1 Tablets By Mouth 3 times a day as needed for Nausea Nausea Contact prescribing physician if questions or concerns Unchanged pantoprazole (Pantoprazole [address] Tab) TAKE 1 TABLET BY MOUTH EVERY DAY Contact prescribing physician if questions or concerns Unchanged polyethylene glycol 3350 (Miralax 17 gram packet) 17 Gram By Mouth Every day Contact prescribing physician if questions or concerns Unchanged polyethylene glycol 3350 (Miralax 3350 17 gram packet) 17 Gram By Mouth Every day Contact pr (more content not included)... [facility] Anion gap [Moles/Vol] 9 mmol/L Normal 6-16 [facility] Comment on above: Performed By: #### 2 [id number] #### [facility] [address] [place] [address] Calcium [Mass/Vol] 9.2 mg/dL Normal 8.9-11.1 [facility] Comment on above: Performed By: #### 2 [id number] #### [facility] [address] [place] [address] Chloride [Moles/Vol] 99 mmol/L Low 101-111 [facility] Comment on above: Performed By: #### 2 [id number] #### [facility] [address] [place] [address] CO2 [Moles/Vol] 32 mmol/L High 21-31 [facility] Comment on above: Performed By: #### 2 [id number] #### [facility] [address] [place] [address] Creatinine [Mass/Vol] 1.0 mg/dL Normal 0.5-1.3 [facility] Comment on above: Performed By: #### 2 [id number] #### [facility] [address] [place] [address] Glucose [Mass/Vol] 110 mg/dL Normal 55-199 [facility] Comment on above: Performed By: #### 2 [id number] #### [facility] [address] [place] [address] Potassium [Moles/Vol] 3.4 mmol/L Low 3.5-5.3 [facility] Comment on above: Performed By: #### 2 [id number] #### [facility] [address] [place] [address] Sodium [Moles/Vol] 137 mmol/L Normal 135-145 [facility] Comment on above: Performed By: #### 2 [id number] #### [facility] [address] [place] [address] Urea nitrogen [Mass/Vol] 7 mg/dL Normal 5-21 [facility] Comment on above: Performed By: #### 2 [id number] #### [facility] [address] [place] [address] Urea nitrogen/Creatinine [Mass ratio] 7 No Units Low 10-20 [facility] Comment on above: Performed By: #### 2 [id number] #### [facility] [address], [place] [address] CBC w/ Auto Diffon 4 Basophils/100 WBC (Bld) 0.7 % Normal 0.0-2.0 [facility] Comment on above: Performed By: #### 2 [id number] #### [facility] [address] [place] [address] Basophils/Leukocytes Auto (Bld) [Pure # fraction] 0.0 E9/L Normal 0.0-0.2 [facility] Comment on above: Performed By: #### 2 [id number] #### [facility] [address] [place] [address] Eosinophils (Bld) [#/Vol] 0.1 E9/L Normal 0.0-0.5 [facility] Comment on above: Performed By: #### 2 [id number] #### [facility] [address] [place] [address] Eosinophils/100 WBC (Bld) 3.0 % Normal 0.0-8.0 [facility] Comment on above: Performed By: #### 2 [id number] #### [facility] [address] [place] [address] Erythrocyte distribution width (RBC) [Ratio] 14.0 % Normal 10.9-14.2 [facility] Comment on above: Performed By: #### 2 [id number] #### [facility] [address] [place] [address] Hematocrit (Bld) [Volume fraction] 41.6 % Normal 34.0-46.0 [facility] Comment on above: Performed By: #### 2 [id number] #### [facility] [address] [place] [address] Hemoglobin (Bld) [Mass/Vol] 13.8 g/dL Normal 12.0-16.0 [facility] Comment on above: Performed By: #### 2 [id number] #### [facility] [address] [place] [address] Lymphocytes (Bld) [#/Vol] 1.2 E9/L Normal 1.0-4.0 [facility] Comment on above: Performed By: #### 2 [id number] #### [facility] [address] [place] [address] Lymphocytes/100 WBC (Bld) 23.9 % Normal 14.0-50.0 [facility] Comment on above: Performed By: #### 2 [id number] #### [facility] [address] [place] [address] MCH (RBC) [Entitic mass] 29.1 pg Normal 27.0-34.0 [facility] Comment on above: Performed By: #### 2 [id number] #### [facility] [address] [place] [address] MCHC (RBC) [Mass/Vol] 33.1 g/dL Normal 31.4-36.0 [facility] Comment on above: Performed By: #### 2 [id number] #### [facility] [address] [place] [address] MCV (RBC) [Entitic vol] 88.1 fL Normal 80.0-100.0 [facility] Comment on above: Performed By: #### 2 [id number] #### [facility] [address] [place] [address] Monocytes (Bld) [#/Vol] 0.5 E9/L Normal 0.2-1.0 [facility] Comment on above: Performed By: #### 2 [id number] #### [facility] [address] [place] [address] Neutrophils (Bld) [#/Vol] 3.1 E9/L Normal 2.0-7.5 [facility] Comment on above: Performed By: #### 2 [id number] #### [facility] [address] [place] [address] Neutrophils/100 WBC (Bld) 61.6 % Normal 36.0-75.0 [facility] Comment on above: Performed By: #### 2 [id number] #### [facility] [address] [place] [address] Platelet mean volume (Bld) [Entitic vol] 7.1 fL Normal 6.4-10.8 [facility] Comment on above: Performed By: #### 2 [id number] #### [facility] [address] [place] [address] Platelets (Bld) [#/Vol] 238.0 E9/L Normal 150.0-500. 0 [facility] Comment on above: Performed By: #### 2 [id number] #### [facility] [address] [place] [address] RBC (Bld) [#/Vol] 4.7 E12/L Normal 4.3-5.9 [facility] Comment on above: Performed By: #### 2 [id number] #### [facility] [address] [place] [address] WBC corrected for nucl RBC Auto (Bld) [#/Vol] 5.0 E9/L Normal 4.0-11.0 [facility] Comment on above: Performed By: #### 2 [id number] #### [facility] [address] [place] [address] CHEMISTRYOrdered By: SYSTEM SYSTEM on 05-16-2024 Albumin [Mass/Vol] 4.1 g/dL Normal 3.3 - 5.0 gm/dL Remisol Chem Albumin/Globulin [Mass ratio] 1.5 {ratio} Normal 1.1 - 2.2 Remisol Chem ALP [Catalytic activity/Vol] 76 [iU]/d Normal 21 - 98 Int._Unit/ L Remisol Chem ALT No additional P-5'-P [Catalytic activity/Vol] 9 [iU]/d Normal 6 - 46 Int._Unit/ L Remisol Chem Anion gap [Moles/Vol] 9 mmol/L Normal 6 - 16 mEq/L Remisol Chem AST [Catalytic activity/Vol] 18 [iU]/d Normal 5 - 43 Int._Unit/ L Remisol Chem Bilirubin [Mass/Vol] 1.0 mg/dL Normal 0.0 - 1 .1 mg/dL Remisol Chem Bilirubin.direct [Mass/Vol] 0.1 mg/dL Normal 0.0 - 0.4 mg/dL Remisol Chem Bilirubin.indirect [Mass or moles/Vol] 0.9 mg/dL Normal 0.1 - 0.9 mg/dL Remisol Chem Calcium [Mass/Vol] 9.2 mg/dL Normal 8.9 - 11. 1 mg/dL Remisol Chem Chloride [Moles/Vol] 99 mmol/L Low 101 - 1 11 mmol/L Remisol Chem CO2 [Moles/Vol] 32 mmol/L High 21 - 31 mmol/L Remisol Chem Creatinine [Mass/Vol] 1.0 mg/dL Normal 0.5 - 1.3 mg/dL Remisol Chem eGFR 58 mL/min/1.73 m2 Low >=59mL/min /1.73 m2 Remisol Chem Globulin (S) [Mass/Vol] 2.8 g/dL Normal 1.4 - 4.0 gm/dL Remisol Chem Glucose [Mass/Vol] 110 mg/dL Normal 55 - 199 mg/dL Remisol Chem Lipase [Catalytic activity/Vol] 15 U/L Normal 13 - 58 unit/L Remisol Chem Potassium [Moles/Vol] 3.4 mmol/L Low 3.5 - 5.3 mmol/L Remisol Chem Protein [Mass/Vol] 6.9 g/dL Normal 6.0 - 7.8 gm/dL Remisol Chem Sodium [Moles/Vol] 137 mmol/L Normal 135 - 145 mmol/L Remisol Chem Urea nitrogen [Mass/Vol] 7 mg/dL Normal 5 - 21 mg/dL Remisol Chem Urea nitrogen/Creatinine [Mass ratio] 7 mg/mg Low 10 - [address] Abdomen/Pelvis w/ Contras ton 05-16-2024 CT Abdomen/Pelvis w/ Contrast Exam Date/Time: 05/16/2024 14:02 EST Reason for Exam: ABDOMINAL PAIN, ACUTE, NONLOCALIZED;Other (please specify) Report IMPRESSION: NO ACUTE INTRA-ABDOMINAL PROCESS IDENTIFIED. EXAM: CT Abdomen/Pelvis w/ Contrast DATE: 05/16/2024 1:45 PM CLINICAL HISTORY: ABDOMINAL PAIN, ACUTE, NONLOCALIZED. COMPARISON: Chest, abdomen and pelvis CTs 06/15/2020. TECHNIQUE: Spiral imaging was obtained of the abdomen and pelvis after the uneventful infusion of approximately 100 mL of Isovue [address] scans at this facility use dose modulation, iterative reconstruction, and/or weight based dosing when appropriate to reduce radiation dose to as low as reasonably achievable. Unless otherwise stated, incidental findings identified in this report do not require routine follow-up imaging. FINDINGS: Liver: No enlargement, significant fatty infiltration, suspicious mass or lesion. A few small fluid density nonenhancing cysts again noted. Biliary: The gallbladder is unremarkable. No abnormal biliary ductal dilatation. Pancreas: No suspicious mass, organized fluid collection, surrounding inflammation, or abnormal pancreatic ductal dilatation. Spleen: Unremarkable. Adrenals: Unremarkable. Kidneys: No hydronephrosis, significant urinary tract calculi, or suspicious mass. A few small fluid density nonenhancing cysts again noted. GI tract: No abnormal dilation, wall thickening, or suspicious mass. Approximately 4 cm duodenal diverticulum near the papilla. Mild descending colon diverticulosis. The appendix has reportedly been removed. Lymph nodes: No pathologically enlarged lymph nodes. Vasculature: No aneurysm or dissection. Patent left iliac vein stent. IVC filter in expected position. Minimal calcified atherosclerotic plaquing. Mesentery/peritoneum/retro peritoneum: No ascites, organized fluid collection, inflammatory changes, or suspicious mass. Pelvis: The urinary bladder, uterus, and adnexa appear within normal limits. Musculoskeletal: No acute osseous findings identified. Moderately extensive degenerative changes L4-L5 with grade 1 anterolisthesis and advanced since 120 06/14/2010. Implanted infusion pump and intrathecal catheter again noted. The visualized aspect of a total left hip arthroplasty is otherwise unremarkable. Lower thorax: Noncontributory. Report Ordering Provider: Jose Daniel FINAL REPORT Dictated: 05/16/2024 2:24 pm Parmjit Fong MD Signed (Electronic Signature): 05/16/2024 2:24 pm Signed by: Parmjit Fong MD Transcribed by: GLORIA Technologist: EMRE Technical Comments GFR (mL/min/1/73m2) 66 Contrast: Isovue 300 Contrast amount in ml's: 100 Rectal Contrast Given? No Oral contrast amount in ml's: 0 Normal [facility] ED Clinical Summaryon 2023 ED Clinical Summary ED Clinical Summary [address] [address] ED Clinical Summary Person Information Name: MAEGAN DYE/[facility] Age: 74 Years : 1950 Sex: Female Language: Dutch PCP: DORITA TRAMMELL Marital Status: Visit Id: Visit Reason: Constipation; Nausea; Abdominal pain; DIZZY, WEAKNESS, N/V Speciality: Acuity: 3 Enc Type: Emergency Med Service: Emergency Arrival: 05/16/2024 12:47:39 Discharge: 05/16/2024 16:00:07 LOS: 000 03:13 Checkin: 05/16/2024 12:47:39 Checkout: 05/16/2024 16:00:07 Dispo Type: Home (Routine DC) EVENTS: Event Name Event Status Request Date/Time Start Date/Time Complete Date/Time Arrive Complete 05/16/2024 12:47:39 05/16/2024 12:47:39 05/16/2024 12:47:39 Document Home Meds Request 05/16/2024 12:47:39 Triage Complete 05/16/2024 12:47:39 05/16/2024 12:57:58 05/16/2024 12:57:58 Bed Assign Complete 05/16/2024 12:50:07 05/16/2024 12:50:07 05/16/2024 12:50:07 Dr Exam Complete 05/16/2024 12:50:07 05/16/2024 12:54:09 05/16/2024 12:54:09 RN Exam Complete 05/16/2024 12:50:07 05/16/2024 13:50:20 05/16/2024 13:50:20 Registration Complete 05/16/2024 12:54:09 05/16/2024 13:00:12 05/16/2024 13:00:12 Dr Exam Complete 05/16/2024 12:55:58 05/16/2024 12:55:58 05/16/2024 12:55:58 Isolation Screening Request 05/16/2024 12:57:59 Reg Complete Request 05/16/2024 13:00:12 Reg Bed Request Complete 05/16/2024 13:00:12 05/16/2024 13:00:12 05/16/2024 13:00:12 CT Complete 05/16/2024 13:17:08 05/16/2024 13:19:36 05/16/2024 14:02:00 Pending Labs Complete 05/16/2024 13:17:08 05/16/2024 15:33:05 Lab Complete 05/16/2024 13:17:08 05/16/2024 13:53:51 X-Ray Complete 05/16/2024 13:17:42 05/16/2024 13:54:04 05/16/2024 14:04:08 Pending Labs Cancel 05/16/2024 13:17:42 05/16/2024 13:27:48 Meds Admin Complete 05/16/2024 13:17:42 05/16/2024 13:45:13 EKG Complete 05/16/2024 13:18:09 05/16/2024 13:26:10 Pending Labs Complete 05/16/2024 13:26:56 05/16/2024 13:26:56 05/16/2024 13:53:51 Lab Complete 05/16/2024 13:26:56 05/16/2024 13:26:56 05/16/2024 13:53:51 Pending Labs Complete 05/16/2024 13:28:13 05/16/2024 13:28:13 05/16/2024 14:00:01 Wet Read Request 05/16/2024 14:04:08 Meds Admin Cancel 05/16/2024 15:22:33 05/16/2024 15:45:37 Discharge Complete 05/16/2024 15:45:20 05/16/2024 16:00:11 05/16/2024 16:00:11 Transfer Complete 05/16/2024 16:00:11 05/16/2024 16:00:11 05/16/2024 16:00:11 ADDR[place]: [address] [place] [id number] PHYS DOC NOTES: MEDICAL INFORMATION: Prescriptions Given: New Medications [facility]/pharmacy #[id number], [address] [place] [id number], [phone] dicyclomine (Bentyl 10 mg Cap) 1 Capsules By Mouth 4 times a day for 7 Days. Refills: 0. Medications to Continue Taking That Have Changed [facility]/pharmacy #[id number], [address] [place], [place] [id number], [phone] START: docusate (Colace 100 mg Cap) 1 Capsules By Mouth 2 times a day. Refills: 0. START: ondansetron (ondansetron 4 mg Dis Tab) 1 Tablets By Mouth every 6 hours as needed Nausea/Vomiting. Refills: 0. START: polyethylene glycol 3350 (Miralax 3350 17 gram packet) 17 Gram By Mouth every day. Refills: 0. Other Medications START: docusate (Colace 100 mg Cap) 1 Capsules By Mouth 2 times a day. Hold for diarrhea. Refills: 0. START: ondansetron (ondansetron 4 mg Dis Tab) 1 Tablets By Mouth every 6 hours as needed Nausea/Vomiting. Refills: 0. START: ondansetron (Zofran ODT 4 mg Tab-Dis) 1 Tablets By Mouth 3 times a day as needed Nausea. Refills: 1. START: polyethylene glycol 3350 (Miralax 17 gram packet) 17 Gram By Mouth every day. Medications to Continue with No Changes Other Medications acetaminophen-hydrocodone (Rock 325 mg-5 mg oral tablet) 1 Tablets By Mouth every 6 hours as needed for pain. Refills: 0. amlodipine (amLODIPine 5 mg Tab) 1 Tablets By Mouth every day. TAKE 1 TABLET BY MOUTH EVERY DAY. celecoxib (celecoxib 200 mg Cap) TAKE 1 CAPSULE BY MOUTH EVERY DAY. clonazepam (clonazepam 1 mg Tab) 1 Tablets By Mouth 3 times a day. TAKE 1 TABLET BY MOUTH THREE TIMES A DAY NEEDED FOR ANXIETY. Refills: 0. donepezil (donepezil 5 mg Tab) 1 Tablets By Mouth once a day (at bedtime). Ensure (Ensure Vanilla) Drink 1 bottle (8 fl. oz.) BID. Refills: 5. escitalopram (escitalopram 5 mg oral tablet) 1 Tablets By Mouth every day. fluticasone nasal (fluticasone 0.05 mg/inh Nasal [place]berry) 2 Sprays Nasal Inhalation every day. each nostril. Refills: 5. loratadine (loratadine 10 mg oral capsule) 1 Capsules By Mouth every day. [facility] Prescription (Walker) Dispense one walker. Refills: 0. olanzapine (olanzapine 7.5 mg oral tablet) 1 Tablets By Mouth once a day (at bedtime). pantoprazole (Pantoprazole [address] Tab) TAKE 1 TABLET BY MOUTH EVERY DAY. phenazopyridine (phenazopyridine 200 mg Tab) 1 Tablets By Mouth after meals. potassium chloride (potassium chloride 10 mEq (more content not included)... Normal [facility] ED Note-Physicianon 05-16-20 ED Note-Physician ED Note-Physician Basic Information Time Seen: Fredy BYRD, Jose Bills 05/16/2024 12:54 Chief Complaint c/o abdominal pain, nausea, constipation that started 4 days ago, last BM 3 days ago, pt states not passing gas. denies any GI hx. History of Present Illness Patient is a 74-year-old female who presents today for evaluation of her nausea, vomiting, abdominal pain, constipation. Patient states that she started to feel unwell 4 days ago and was unable to keep anything down over the last 4 days. She states that her last bowel movement was 3 days ago. She states that she feels like she is no longer passing gas. She denies any significant GI history and has never had any GI surgeries recently. Patient denies any fevers, bodies, chills. She denies any dysuria, frequency, urgency. She does state that she is intermittently getting shortness of breath. Denies any chest pain. Review of Systems No other aggravating or relieving factors no other associated symptoms no other prior treatments or complaints. Family: Reviewed and noncontributory Social: lives at home Review of systems negative unless otherwise specified in the HPI. Physical Exam Vitals & Measurements T: 37.6 ???C(Oral) HR: 55(Monitored) RR: 16 BP: 134/70 SpO2: 93% HT: 154 cm WT: 62.3 kg BMI: 26.27 General: The patient appears well and in no apparent distress. Patient is resting comfortably on cart. Skin: Warm, dry, no pallor noted. Head: Normocephalic, atraumatic Neck: No JVD Eye: PERRLA, EOMI ENT: Moist mucus membranes Cardiovascular: Regular rate and rhythm. Normal peripheral perfusion Respiratory: CTA bilaterally. No respiratory distress no accessory muscle use no obvious audible wheezing Chest Wall: no deformity Musculoskeletal: normal ROM, no deformity, no swelling GI: Soft no obvious distention. No rebound or rigidity. No guarding. Diffuse mild abdominal tenderness. Neurological: A&O moves all extremities equal strength and symmetry Psychiatric: Cooperative and appropriate Medical Decision Making Patient is a 74-year-old female who presents today for evaluation of her nausea, vomiting, abdominal pain, constipation. She has been nauseous and vomiting over the last 4 days and unable to keep anything down. She has not had a bowel movement in 3 days. Denies any other systemic signs or symptoms. No known sick contacts at home. On exam patient is afebrile nontoxic-appearing. Her abdomen is soft but does have diffuse mild abdominal tenderness. No guarding or distention. CTA to bilateral lung cutler. RRR. No swelling to the bilateral lower extremities. Labs are WNL including troponin. UA negative for UTI. EKG demonstrates sinus bradycardia with first-degree AV block. Single view chest x-ray interpreted by myself is negative for any acute cardiopulmonary process. CT of the abdomen and pelvis interpreted by radiology is negative for any acute intra-abdominal pathology. Patient was given 1 dose of Zofran IV here in the ED with improvement of her symptoms. She was able to pass p.o. challenge and was drinking water as well as eating a popsicle without any repeat symptoms. Her constipation is likely secondary to not having much p.o. intake which we discussed at length. I discussed the importance of hydration with her she will be discharged home with Zofran, Bentyl, Colace, MiraLAX as needed for symptomatic management. She be discharged home with close follow-up with her PCP in the next couple of days to ensure she is getting better. We discussed if she has new or worsening symptoms she should promptly return to the ED for reevaluation. Return to ED precautions were reviewed with the patient at length. Assessment/Plan Abdominal pain (R10.9: Unspecified abdominal pain) Constipation (K59.00: Constipation, unspecified) Nausea & vomiting (R11.2: Nausea with vomiting, unspecified) Shortness of breath (R06.02: Shortness of breath) Orders: ondansetron, 4 mg = 1 tab(s), Oral, q6hr, PRN Nausea/Vomiting, # 12 tab(s), Refills(s) 0, Pharmacy: [facility]/pharmacy #[id number], 154, cm, 05/16/24 12:57:00 EST, Height/Length Dosing, 62.3, kg, 05/16/24 12:57:00 EST, Weight Dosing ondansetron, 4 mg = 2 mL, Injection, IV Push, Once, Stop date 05/16/24 13:17:00 EST, STAT, Start date 05/16/24 13:17:00 EST, 05/16/24 13:17:00 EST Basic Metabolic Panel CBC w/ Auto Diff CT Abdomen/Pelvis w/ Contrast ECG 12 Lead Adult eGFR Hepatic Function Panel Lipase Level Troponin 0 Hr. UA with Cult Rflx XR Chest Single View Medications Administered Given ondansetron 4 mg/2 mL Inj, 4 mg, IV Push Disposition Plan Patient Discharge Condition Stable, improved Discharge Disposition Home Discharge Prescription List Prescriptions Bentyl 10 mg Cap, 10 mg= 1 cap(s), Oral, QID Colace 100 mg Cap, 100 mg= 1 cap(s), Oral, BID Miralax 3350 17 gram packet, 17 gm, Oral, Daily ondansetron 4 mg Dis Tab, 4 mg= 1 tab(s), Oral, q6hr, PRN Follow-up With When Contact Information [facility] In 3 days 05/19/2024 (more content not included)... Normal [facility] Comment on above: Result Comment: Elec tronically Signed By: Fredy BYRD, Jose Bills\.br\Date and Time Signed: 05/16/24 15:58 EST\.br\Electronically Co-Signed By: Didier Hooks M.D..olegario\Date and Time Co-Signed: 05/16/24 19:01 EST ED Patient Summaryon 024 ED Patient Summary ED Patient Summary [address] [address] Patient Discharge Instructions Person Information Name: MAEGAN DYE Age: 74 Years Arrival Date: 05/16/2024 12:47:39 Discharge Diagnosis: Abdominal pain; Constipation; Nausea & vomiting; Shortness of breath Primary Care Physician: VALERI, DORITA Provider Information Primary Provider: Didier Hooks M.D. [employer] Vertical:Jose Daniel PA-C The exam and treatment you received in the Emergency Department were for an urgent problem and are not intended as complete care. It is important that you follow up with a doctor, nurse practitioner, or physician???s assistant executive housekeeper for ongoing care. If your symptoms become worse or you do not improve as expected and you are unable to reach your usual health care provider, you should return to the Emergency Department. We are available 24 hours a day. MAEGAN DYE has been given the following list of patient education materials, prescriptions and follow-up instructions: Follow-up Instructions: With: Address: When: [facility] [address] [place] [id number] Business (1) In 3 days 05/19/2024 In the event that this physician does not participate in your insurance network, please consult with your insurance company to find a nearby participating provider. Patient Education Materials: Nausea and Vomiting, Adult A MESSAGE TO ALL PATIENTS REGARDING OPIOIDS PRESCRIPTION OPIOIDS: WHAT YOU NEED TO KNOW Prescription opioids can be used to help relieve oqauvbid-nf-cbnshv pain and are often prescribed following a [...] as well, even when taken as directed: ??? Tolerance???meaning you might need to take more of the medication for the same pain relief ??? Physical dependence???meaning you have symptoms of withdrawal when a medication is stopped ??? Increased sensitivity to pain ??? Constipation ??? Nausea, vomiting, and dry mouth ??? Sleepiness and dizziness ??? Confusion ??? Depression ??? Low levels of testosterone that can result in lower sex drive, energy, and strength ??? Itching and sweating RISKS ARE GREATER WITH: ??? History of drug misuse, substance use disorder, or overdose ??? Mental health conditions (such as depression or anxiety) ??? Sleep apnea ??? Older age (65 years and older) ??? Avoid alcohol while taking prescription opioids. Also, unless specifically advised by your health care provider, medications to avoid include: ??? Benzodiazepines (such as Xanax or Valium) ??? Muscle relaxants (such as Soma or Flexeril) ??? Hypnotics (such as Ambien or Lunesta) ??? Other prescription opioids KNOW YOUR OPTIONS Talk to your health care provider about ways to manage your pain that don???t involve prescription opioids. Some of these options may actually work better and have fewer risks and side effects. Options may include: ??? Pain relievers such as acetaminophen, ibuprofen, and naproxen ??? Some medication that are also used for depression or seizures ??? Physical therapy and exercise ??? Cognitive behavioral therapy, a psychological, goal-directed approach, in which patients learn how to modify physical, behavioral, and emotional triggers of pain and stress. IF YOU ARE PRESCRIBED OPIOIDS FOR PAIN: ??? Never take opioids in greater amounts or more often than prescribed. ??? Follow up with your primary health care provider. o Work together to create a plan on how to manage your pain. o Talk about ways to help manage your pain that don???t involve prescription opioids. o Talk about any and all concerns and side effects. ??? Help prevent misuse and abuse o Never sell or share prescription opioids. o Never use another person???s prescription opioids. ??? Store prescription opioids in a secure place and out of reach of others (this may include visitors, children, friends, and family). ??? Safely dispose of unused prescription opioids: Find your community drug take-back program or your pharmacy mail-back program, or flush them down the toilet, following guidance from the Food and Drug Administration (www.fda.gov/Drugs/Resourc esForYou). ??? Visit www.cdc.gov/drugoverdose to learn about the risks of opioids abuse and overdose. ??? If you believe you may be struggling with addiction, tell y (more content not included)... Normal [facility] HEMATOLOGYOrdered By: SYSTEM SYSTEM on 05-16-2024 Basophils/100 WBC (Bld) 0.7 % Normal 0.0 - 2.0 % Remisol Heme Basophils/Leukocytes Auto (Bld) [Pure # fraction] 0.0 E9/L Normal 0.0 - 0.2 E9/L Remisol Heme Eosinophils (Bld) [#/Vol] 0.1 E9/L Normal 0.0 - 0.5 E9/L [facility] Eosinophils/100 WBC (Bld) 3.0 % Normal 0.0 - 8.0 % [facility] Erythrocyte distribution width (RBC) [Ratio] 14.0 % Normal 10.9 - 14.2 % [facility] Hematocrit (Bld) [Volume fraction] 41.6 % Normal 34.0 - 46.0 % [facility] Hemoglobin (Bld) [Mass/Vol] 13.8 g/dL Normal 12.0 - 16.0 gm/dL [facility] Lymphocytes (Bld) [#/Vol] 1.2 E9/L Normal 1.0 - 4.0 E9/L [facility] Lymphocytes/100 WBC (Bld) 23.9 % Normal 14.0 - 50.0 % [facility] MCH (RBC) [Entitic mass] 29.1 pg Normal 27.0 - 34.0 pg [facility] MCHC (RBC) [Mass/Vol] 33.1 g/dL Normal 31.4 - 36.0 gm/dL [facility] MCV (RBC) [Entitic vol] 88.1 fL Normal 80.0 - 100.0 fL [facility] Monocytes (Bld) [#/Vol] 0.5 E9/L Normal 0.2 - 1.0 E9/L [facility] Monocytes/100 WBC (Bld) 10.8 % Normal 4.0 - 14.0 % [facility] Neutrophils (Bld) [#/Vol] 3.1 E9/L Normal 2.0 - 7.5 E9/L [facility] Neutrophils/100 WBC (Bld) 61.6 % Normal 36.0 - 75.0 % [facility] Platelet mean volume (Bld) [Entitic vol] 7.1 fL Normal 6.4 - 10.8 fL [facility] Platelets (Bld) [#/Vol] 238.0 E9/L Normal 150.0 - 500.0 E9/L [facility] RBC (Bld) [#/Vol] 4.7 E12/L Normal 4.3 - 5.9 E12/L [facility] WBC corrected for nucl RBC Auto (Bld) [#/Vol] 5.0 E9/L Normal 4.0 - 11.0 E9/L [facility] Hep Func Panelon 05-16-2024 Albumin [Mass/Vol] 4.1 g/dL Normal 3.3-5.0 [facility] Comment on above: Performed By: #### 2 [id number] #### [facility] [address] [place] [address] Albumin/Globulin (S) [Mass conc ratio] 1.5 Normal 1.1-2.2 [facility] Comment on above: Performed By: #### 2 [id number] #### [facility] [address] [place] [address] ALP [Catalytic activity/Vol] 76 Int._Unit/L Normal 21-98 [facility] Comment on above: Performed By: #### 2 [id number] #### [facility] [address] [place] [address] ALT No additional P-5'-P [Catalytic activity/Vol] 9 Int._Unit/L Normal 6-46 [facility] Comment on above: Performed By: #### 2 [id number] #### [facility] [address] [place] [address] AST [Catalytic activity/Vol] 18 Int._Unit/L Normal 5-43 [facility] Comment on above: Performed By: #### 2 [id number] #### [facility] [address] [place] [address] Bilirubin [Mass/Vol] 1.0 mg/dL Normal 0.0-1.[address] [facility] Comment on above: Performed By: #### 2 [id number] #### [facility] [address] [place] [address] Bilirubin.direct [Mass/Vol] 0.1 mg/dL Normal 0.0-0.4 [facility] Comment on above: Performed By: #### 2 [id number] #### [facility] [address] [place] [address] Bilirubin.indirect [Mass or moles/Vol] 0.9 mg/dL Normal 0.1-0.9 [facility] Comment on above: Performed By: #### 2 [id number] #### [facility] [address] [place] [address] Globulin (S) [Mass/Vol] 2.8 g/dL Normal 1.4-4.0 [facility] Comment on above: Performed By: #### 2 [id number] #### [facility] [address] [place] [address] Protein [Mass/Vol] 6.9 g/dL Normal 6.0-7.8 [facility] Comment on above: Performed By: #### 2 [id number] #### [facility] [address] [place] [address] Lipase Levelon 05-16-2024 Lipase [Catalytic activity/Vol] 15 U/L Normal 13-58 [facility] Comment on above: Performed By: #### 2 [id number] #### [facility] [address] [place] [address] Troponin 0 Hr.Ordered By: [employer] on 05-16-2024 Troponin HS 4.70 pg/mL Low 10.10-27.1 0 [facility] Comment on above: Interpretive Data: T he 95% CI (Confidence Interval) PPV (Positive Predictive Value) for myocardial infarction in females is 38 pg/mL, in males 51 pg/mL. The results should be used in conjunction with clinical conditions of myocardial infarction. (Access High Sensitivity Troponin I Instructions For Use, Siobhan Muskegon, December 2017) Result Comment: The 95% CI (Confidence Interval) PPV (Positive Predictive Value) for myocardial infarction in females is 38 pg/mL, in males 51 pg/mL. The results should be used in conjunction with clinical conditions of myocardial infarction. (Access High Sensitivity Troponin I Instructions For Use, Siobhan Muskegon, December 2017) Performed By: #### 1 [id number] #### [facility] [address] [place] [address] UA with Cult Rflxon 05-16-20 Bilirubin Ql (U) Negative Normal Negative [facility] Comment on above: Performed By: #### 4 [id number] #### [facility] [address] [place] [address] Clarity (U) Clear Normal Clear [facility] Comment on above: Performed By: #### 4 [id number] #### [facility] [address] [place] [address] Color (U) Yellow Normal Yellow [facility] Comment on above: Result Comment: Micr oscopic readings are only performed on those samples that meet specific criteria set forth by [facility]. Performed By: #### 4 [id number] #### [facility] [address] [place] [address] Glucose Ql (U) Negative Normal Negative [facility] Comment on above: Performed By: #### 4 [id number] #### [facility] [address] [place] [address] Hemoglobin Auto test strip (U) [Mass/Vol] Negative Normal Negative [facility] Comment on above: Performed By: #### 4 [id number] #### [facility] [address] [place] [address] Ketones Auto test strip Ql (U) Negative Normal Negative [facility] Comment on above: Performed By: #### 4 [id number] #### [facility] [address] [place] [address] Leukocyte esterase Auto test strip Ql (U) Negative Normal Negative [facility] Comment on above: Performed By: #### 4 [id number] #### [facility] [address] [place] [address] Nitrite Auto test strip Ql (U) Negative Normal Negative [facility] Comment on above: Performed By: #### 4 [id number] #### [facility] [address] [place] [address] pH (U) 8.0 [pH] Invalid Interpretation Code 5.0-9.0 [facility] Comment on above: Performed By: #### 4 [id number] #### [facility] [address] [place] [address] Protein Ql (U) Negative Normal Negative [facility] Comment on above: Performed By: #### 4 [id number] #### [facility] [address] [place] [address] Specific gravity (U) [Rel density] 1.036 Invalid Interpretation Code 1.005-1.03 0 [facility] Comment on above: Performed By: #### 4 [id number] #### [facility] [address] [place] [address] Urobilinogen (U) [Mass/Vol] Negative Normal Negative [facility] Comment on above: Performed By: #### 4 [id number] #### [facility] [address] [place] [address] Type of Urine collection method Clean Catch Normal [facility] Comment on above: Performed By: #### 4 [id number] #### [facility] [address] [place] [address] URINALYSISOrdered By: SYSTEM SYSTEM on 05-16-2024 Bilirubin Ql (U) Negative Normal Negativemg /dL [facility] UA Auto SS Clarity (U) Clear (05/16/24 3:20 PM) Normal Clear [facility] UA Auto SS Color (U) Yellow 1 (05/16/24 3:20 PM) Normal Yellow [facility] UA Auto SS Comment on above: Interpretive Data: M icroscopic readings are only performed on those samples that meet specific criteria set forth by [facility]. Glucose Ql (U) Negative Normal Negativemg /dL [facility] UA Auto SS Hemoglobin Auto test strip (U) [Mass/Vol] Negative Normal Negativemg /dL [facility] UA Auto SS Ketones Auto test strip Ql (U) Negative Normal Negativemg /dL [facility] UA Auto SS Leukocyte esterase Auto test strip Ql (U) Negative Normal NegativeLe u/uL [facility] UA Auto SS Nitrite Auto test strip Ql (U) Negative Normal Negativemg /dL [facility] UA Auto SS pH (U) 8.0 *NA* (05/16/24 3:20 PM) Invalid Interpretation Code 5.0 - 9.0 [facility] UA Auto SS Protein Ql (U) Negative Normal Negativemg /dL [facility] UA Auto SS Specific gravity (U) [Rel density] 1.036 *NA* (05/16/24 3:20 PM) Invalid Interpretation Code 1.005 - 1.030 [facility] UA Auto SS Urobilinogen (U) [Mass/Vol] Negative Normal Negativemg /dL [facility] UA Auto SS URINALYSISOrdered By: Jose Daniel on 05-16-2024 UA Spec Desc Clean Catch (05/16/24 3:20 PM) Normal [facility] UA Auto SS XR Chest Single Viewon 05-16 XR Chest Single View Exam Date/Time: 05/16/2024 14:04 EST Reason for Exam: Cough Report IMPRESSION: NO EVIDENCE OF ACTIVE CARDIOPULMONARY DISEASE, BY PORTABLE CHEST RADIOGRAPHY. EXAM: XR Chest Single View DATE: 05/16/2024 1:54 PM CLINICAL HISTORY: Cough. COMPARISON: 05/13/2024. TECHNIQUE: A portable upright AP radiograph of the chest was obtained. FINDINGS: There is no significant pulmonary infiltrate, cardiomegaly, vascular congestion, sizable pleural effusion, pneumothorax, or displaced fractures identified. Ordering Provider: Jose Daniel FINAL REPORT Dictated: 05/16/2024 3:11 pm Parmjit Fong MD Signed (Electronic Signature): 05/16/2024 3:11 pm Signed by: Parmjit Fong MD Transcribed by: GLORIA Technologist: AVA Technical Comments Radiation Dose: Ka,r in mGy = . DAP = . Normal [facility] eGFRon 05-16-2024 eGFR 58 mL/min/1.73 m2 Low >=59 [facility] Comment on above: Performed By: #### 1 [id number] #### [facility] [address] [place] [address] ED Note-Physicianon 05-11-20 ED Note-Physician ED Note-Physician Basic Information Time Seen: Chandan Adhikari DO 05/10/2024 17:56 laboratory studies are reviewed and noted. Patient is well-appearing on exam. With serial examination she is eating [employer] Chief Complaint pt. c/o abd. pain, n/v x 2 days. states she is not vomiting now and would like water. History of Present Illness 74-year-old female comes into the ED for evaluation of abdominal pain. She states for the last 2 days she has had crampy abdominal pain with nausea and vomiting. She has had some difficulty with urination. She has chronic issues with constipation and urinary retention. She often has to self cath at home for your urine. No fever or chills. She points to the right side of her abdomen as area of maximal tenderness. No chest pain or shortness of breath. No prior treatments. Currently she is denying nausea and requesting water. Review of Systems A 10 point review of systems is negative except as noted above. Medical and Surgical History: Reviewed and noted Social history: Lives at home Tobacco: Denies Physical Exam Vitals & Measurements T: 36.7 ???C(Oral) HR: 75(Peripheral) RR: 16 BP: 160/72 SpO2: 94% HT: 154 cm WT: 63.8 kg BMI: 26.9 Nurses notes and vital signs reviewed and patient is not hypoxic. General: The patient appears well, resting comfortably. Skin: Warm, dry. Head: Atraumatic. Neck: No JVD. Eye: Normal conjunctiva. Ears, Nose, Mouth, and Throat: Moist mucous membranes. Cardiovascular: Strong distal pulses. Chest wall: Respiratory: Respirations are nonlabored. Back: Normal range of motion. Musculoskeletal: Normal ROM with no gross deformity. Gastrointestinal: Abdomen is soft throughout. Relatively nontender to deep palpation. Negative Pruett's. Negative McBurney's. No guarding rebound or rigidity. Urological: Neurological: Awake and alert. No focal deficits. Follows commands. Psychiatric: Cooperative. Medical Decision Making Patient notes abdominal pain with nausea and vomiting. Her initial evaluation is relatively benign. Screening laboratory studies were obtained. Grossly normal. With repeat evaluation she is resting comfortably and eating Ordaz[employer]. She is a longstanding history of chronic abdominal pain likely accounting for today's presentation. She is discharged home to follow-up with her PCP. Patient was encouraged to return to the ED if symptoms worsen or change. Assessment/Plan 1. Abdominal pain (R10.9: Unspecified abdominal pain) Orders: Basic Metabolic Panel CBC w/ Auto Diff eGFR Extra Blue Tube Hepatic Function Panel Lipase Level UA with Cult Rflx Disposition Plan Patient Discharge Condition Disposition: Discharged home Condition: Improved and stable Counseled: Patient and/or family were counseled to workup, results, treatment plan and follow-up recommendations Discharge Prescription List Prescriptions No active prescription medications Follow-up With When Contact Information AZUL VITA In 3 days 05/13/2024 EST [address] [place] [address] Business (1) Additional Instructions: Patient Education Abdominal Pain, Adult Attestation I performed a substantive part of the MDM during the patient???s E/M visit. I personally made or approved the documented management plan and acknowledge its risk of complications. (Independent Interpretation) My (EKG/X-Ray/US/CT) interpretation as above. (Discussion) Management/test interpretation discussed with APC. This report was transcribed using voice recognition software. Every effort was made to ensure accuracy, however, inadvertently computerized senior licensing manager mistakes may be present. Appropriate healthcare PPE was used in evaluating this patient. Problem List/Past Medical History Ongoing Acute UTI [...] Vitamin D deficiency Historical Accidental fall Agent [place] ASTHMA Benzodiazepine withdrawal Bipolar disorder Callus of foot Cerebral hemorrhage chronic back pain Chronic GERD Chronic kidney disease, stage 2 (mild) Chronic pain Closed fracture of base of skull with concussion code blue d/t hypokalemia collapsed lung on the right compression fx back Constipation COPD - Chronic obstructive pulmonary disease depression (more content not included)... Normal [facility] Comment on above: Result Comment: Elec tronically Signed By: Malick Ho PA-C\.br\Date and Time Signed: 05/10/24 18:14 EST\.br\Electronically Co-Signed By: Malick Ho PA-C\.br\Date and Time Co-Signed: 05/10/24 19:23 EST\.br\Electronically Co-Signed By: Chandan Adhikari DO\.br\Date and Time Co-Signed: 05/11/24 07:57 EST BMPon 05-10-2024 Anion gap [Moles/Vol] 11 mmol/L Normal 6-16 [facility] Comment on above: Performed By: #### 2 [id number] #### [facility] [address] [place] [address] Calcium [Mass/Vol] 9.8 mg/dL Normal 8.9-11.1 [facility] Comment on above: Performed By: #### 2 [id number] #### [facility] [address] [place] [address] Chloride [Moles/Vol] 97 mmol/L Low 101-111 [facility] Comment on above: Performed By: #### 2 [id number] #### [facility] [address] [place] [address] CO2 [Moles/Vol] 34 mmol/L High 21-31 [facility] Comment on above: Performed By: #### 2 [id number] #### [facility] [address] [place] [address] Creatinine [Mass/Vol] 0.9 mg/dL Normal 0.5-1.3 [facility] Comment on above: Performed By: #### 2 [id number] #### [facility] [address] [facility] [place] [address] Glucose [Mass/Vol] 124 mg/dL Normal 55-199 [facility] Comment on above: Performed By: #### 2 [id number] #### [facility] [address] [facility] [place] [address] Potassium [Moles/Vol] 3.3 mmol/L Low 3.5-5.3 [facility] Comment on above: Performed By: #### 2 [id number] #### [facility] [address] [place] [address] Sodium [Moles/Vol] 139 mmol/L Normal 135-145 [facility] Comment on above: Performed By: #### 2 [id number] #### [facility] [address] [place] [address] Urea nitrogen [Mass/Vol] 9 mg/dL Normal 5-21 [facility] Comment on above: Performed By: #### 2 [id number] #### [facility] [address] [place] [address] Urea nitrogen/Creatinine [Mass ratio] 10 No Units Normal 10-20 [facility] Comment on above: Performed By: #### 2 [id number] #### [facility] [address] [place] [address] CBC w/ Auto Diffon 4 Basophils/100 WBC (Bld) 0.7 % Normal 0.0-2.0 [facility] Comment on above: Performed By: #### 2 [id number] #### [facility] [address] [place] [address] Basophils/Leukocytes Auto (Bld) [Pure # fraction] 0.0 E9/L Normal 0.0-0.2 [facility] Comment on above: Performed By: #### 2 [id number] #### [facility] [address] [place] [address] Eosinophils (Bld) [#/Vol] 0.2 E9/L Normal 0.0-0.5 [facility] Comment on above: Performed By: #### 2 [id number] #### [facility] [address] [place] [address] Eosinophils/100 WBC (Bld) 2.6 % Normal 0.0-8.0 [facility] Comment on above: Performed By: #### 2 [id number] #### [facility] [address] [place] [address] Erythrocyte distribution width (RBC) [Ratio] 13.9 % Normal 10.9-14.2 [facility] Comment on above: Performed By: #### 2 [id number] #### [facility] [address] [place] [address] Hematocrit (Bld) [Volume fraction] 40.3 % Normal 34.0-46.0 [facility] Comment on above: Performed By: #### 2 [id number] #### [facility] [address] [place] [address] Hemoglobin (Bld) [Mass/Vol] 13.4 g/dL Normal 12.0-16.0 [facility] Comment on above: Performed By: #### 2 [id number] #### [facility] [address] [place] [address] Lymphocytes (Bld) [#/Vol] 1.0 E9/L Normal 1.0-4.0 [facility] Comment on above: Performed By: #### 2 [id number] #### [facility] [address] [place] [address] Lymphocytes/100 WBC (Bld) 16.0 % Normal 14.0-50.0 [facility] Comment on above: Performed By: #### 2 [id number] #### [facility] [address] [place] [address] MCH (RBC) [Entitic mass] 29.0 pg Normal 27.0-34.0 [facility] Comment on above: Performed By: #### 2 [id number] #### [facility] [address] [place] [address] MCHC (RBC) [Mass/Vol] 33.2 g/dL Normal 31.4-36.0 [facility] Comment on above: Performed By: #### 2 [id number] #### [facility] [address] [place] [address] MCV (RBC) [Entitic vol] 87.4 fL Normal 80.0-100.0 [facility] Comment on above: Performed By: #### 2 [id number] #### [facility] [address] [place] [address] Monocytes (Bld) [#/Vol] 0.6 E9/L Normal 0.2-1.0 [facility] Comment on above: Performed By: #### 2 [id number] #### [facility] [address] [place] [address] Neutrophils (Bld) [#/Vol] 4.6 E9/L Normal 2.0-7.5 [facility] Comment on above: Performed By: #### 2 [id number] #### [facility] [address] [place] [address] Neutrophils/100 WBC (Bld) 71.1 % Normal 36.0-75.0 [facility] Comment on above: Performed By: #### 2 [id number] #### [facility] [address] [place] [address] Platelet mean volume (Bld) [Entitic vol] 7.1 fL Normal 6.4-10.8 [facility] Comment on above: Performed By: #### 2 [id number] #### [facility] [address] [place] [address] Platelets (Bld) [#/Vol] 228.0 E9/L Normal 150.0-500. 0 [facility] Comment on above: Performed By: #### 2 [id number] #### [facility] [address] [place] [address] RBC (Bld) [#/Vol] 4.6 E12/L Normal 4.3-5.9 [facility] Comment on above: Performed By: #### 2 [id number] #### [facility] [address] [place] [address] WBC corrected for nucl RBC Auto (Bld) [#/Vol] 6.5 E9/L Normal 4.0-11.0 [facility] Comment on above: Performed By: #### 2 [id number] #### [facility] [address] [place] [address] CHEMISTRYOrdered By: SYSTEM SYSTEM on 05-10-2024 Albumin [Mass/Vol] 4.1 g/dL Normal 3.3 - 5.0 gm/dL [facility] Albumin/Globulin [Mass ratio] 1.4 {ratio} Normal 1.1 - 2.2 [facility] ALP [Catalytic activity/Vol] 86 [iU]/d Normal 21 - 98 Int._Unit/ L [facility] ALT No additional P-5'-P [Catalytic activity/Vol] 10 [iU]/d Normal 6 - 46 Int._Unit/ L [facility] Anion gap [Moles/Vol] 11 mmol/L Normal 6 - 16 mEq/L [facility] AST [Catalytic activity/Vol] 20 [iU]/d Normal 5 - 43 Int._Unit/ L [facility] Bilirubin [Mass/Vol] 0.6 mg/dL Normal 0.0 - 1 .1 mg/dL [facility] Bilirubin.direct [Mass/Vol] 0.1 mg/dL Normal 0.0 - 0.4 mg/dL [facility] Bilirubin.indirect [Mass or moles/Vol] 0.5 mg/dL Normal 0.1 - 0.9 mg/dL [facility] Calcium [Mass/Vol] 9.8 mg/dL Normal 8.9 - 11. 1 mg/dL [facility] Chloride [Moles/Vol] 97 mmol/L Low 101 - 1 11 mmol/L Remisol Chem CO2 [Moles/Vol] 34 mmol/L High 21 - 31 mmol/L Remisol Chem Creatinine [Mass/Vol] 0.9 mg/dL Normal 0.5 - 1.3 mg/dL Remisol Chem eGFR 66 mL/min/1.73 m2 Normal >=59mL/min /1.73 m2 Remisol Chem Globulin (S) [Mass/Vol] 3.0 g/dL Normal 1.4 - 4.0 gm/dL Remisol Chem Glucose [Mass/Vol] 124 mg/dL Normal 55 - 199 mg/dL Remisol Chem Lipase [Catalytic activity/Vol] 23 U/L Normal 13 - 58 unit/L Remisol Chem Potassium [Moles/Vol] 3.3 mmol/L Low 3.5 - 5.3 mmol/L Remisol Chem Protein [Mass/Vol] 7.1 g/dL Normal 6.0 - 7.8 gm/dL Remisol Chem Sodium [Moles/Vol] 139 mmol/L Normal 135 - 145 mmol/L Remisol Chem Urea nitrogen [Mass/Vol] 9 mg/dL Normal 5 - 21 mg/dL Remisol Chem Urea nitrogen/Creatinine [Mass ratio] 10 mg/mg Normal 10 - 20 Remisol Chem ED Clinical Summaryon 2023 ED Clinical Summary ED Clinical Summary [place] [id number] ED Clinical Summary Person Information [facility]: [facility] Age[facility] 74 Years : 1950 Sex: Female Language: Dutch PCP: AZUL GORMAN CNP Marital Status: Visit Id: Visit Reason: Vomiting; Nausea; Abdominal pain; VOMITING, ABD PAIN Speciality: Acuity: 3 Enc Type: Emergency Med Service: Emergency Arrival: 05/10/2024 17:55:11 Discharge: 05/10/2024 19:36:10 LOS: 000 01:41 Checkin: 05/10/2024 17:55:11 Checkout: 05/10/2024 19:36:10 Dispo Type: Home (Routine DC) EVENTS: Event Name Event Status Request Date/Time Start Date/Time Complete Date/Time Arrive Complete 05/10/2024 17:55:11 05/10/2024 17:55:11 05/10/2024 17:55:11 Document Home Meds Request 05/10/2024 17:55:11 Triage Complete 05/10/2024 17:55:11 05/10/2024 18:05:39 05/10/2024 18:05:39 Dr Exam Complete 05/10/2024 17:56:05 05/10/2024 17:56:05 05/10/2024 17:56:05 Registration Complete 05/10/2024 17:56:05 05/10/2024 17:56:06 05/10/2024 18:27:05 Bed Assign Complete 05/10/2024 17:56:06 05/10/2024 17:56:06 05/10/2024 17:56:06 RN Exam Request 05/10/2024 17:56:06 Dr Exam Complete 05/10/2024 17:56:41 05/10/2024 17:56:41 05/10/2024 17:56:41 Isolation Screening Request 05/10/2024 18:05:39 Pending Labs Complete 05/10/2024 18:11:38 05/10/2024 18:35:50 05/10/2024 19:05:02 Lab Complete 05/10/2024 18:11:38 05/10/2024 19:05:02 Reg Complete Request 05/10/2024 18:27:05 Reg Bed Request Complete 05/10/2024 18:27:05 05/10/2024 18:27:05 05/10/2024 18:27:05 Pending Labs Complete 05/10/2024 18:41:30 05/10/2024 18:41:30 05/10/2024 19:05:02 Lab Complete 05/10/2024 18:41:30 05/10/2024 18:41:30 05/10/2024 19:05:02 Pending Labs Complete 05/10/2024 19:09:15 05/10/2024 19:09:15 05/10/2024 19:09:15 Discharge Complete 05/10/2024 19:17:17 05/10/2024 19:36:15 05/10/2024 19:36:15 Transfer Complete 05/10/2024 19:36:15 05/10/2024 19:36:15 05/10/2024 19:36:15 ADDRESS: [address] [place] [address] [address] [facility] [id number] [facility] DOC NOTES: MEDICAL INFORMATION: Prescriptions Given: Medications to Continue with No Changes Other Medications acetaminophen-hydrocodone (Rock 325 mg-5 mg oral tablet) 1 Tablets By Mouth every 6 hours as needed for pain. Refills: 0. amlodipine (amLODIPine 5 mg Tab) 1 Tablets By Mouth every day. TAKE 1 TABLET BY MOUTH EVERY DAY. celecoxib (celecoxib 200 mg Cap) TAKE 1 CAPSULE BY MOUTH EVERY DAY. clonazepam (clonazepam 1 mg Tab) 1 Tablets By Mouth 3 times a day. TAKE 1 TABLET BY MOUTH THREE TIMES A DAY NEEDED FOR ANXIETY. Refills: 0. docusate (Colace 100 mg Cap) 1 Capsules By Mouth 2 times a day. Hold for diarrhea. Refills: 0. donepezil (donepezil 5 mg Tab) 1 Tablets By Mouth once a day (at bedtime). Ensure (Ensure Vanilla) Drink 1 bottle (8 fl. oz.) BID. Refills: 5. escitalopram (escitalopram 5 mg oral tablet) 1 Tablets By Mouth every day. fluticasone nasal (fluticasone 0.05 mg/inh Nasal [place]) 2 Sprays Nasal Inhalation every day. each nostril. Refills: 5. loratadine (loratadine 10 mg oral capsule) 1 Capsules By Mouth every day. [facility] Prescription (Walker) Dispense one walker. Refills: 0. olanzapine (olanzapine 7.5 mg oral tablet) 1 Tablets By Mouth once a day (at bedtime). ondansetron (ondansetron 4 mg Dis Tab) 1 Tablets By Mouth every 6 hours as needed Nausea/Vomiting. Refills: 0. ondansetron (Zofran ODT 4 mg Tab-Dis) 1 Tablets By Mouth 3 times a day as needed Nausea. Refills: 1. pantoprazole (Pantoprazole [address] Tab) TAKE 1 TABLET BY MOUTH EVERY DAY. phenazopyridine (phenazopyridine 200 mg Tab) 1 Tablets By Mouth after meals. polyethylene glycol 3350 (Miralax 17 gram packet) 17 Gram By Mouth every day. potassium chloride (potassium chloride 10 mEq Cap-ER) 1 Capsules By Mouth every other day. Refills: 2. senna (senna 8.6 mg Tab) 2 Tablets By Mouth once a day (at bedtime). Refills: 0. senna (Senokot 8.6 mg Tab) 2 Tablets By Mouth once a day (at bedtime) as needed for constipation. Refills: 1. sodium chloride 2 gram By Mouth 3 times a day. sulfamethoxazole-trimethop rim (sulfamethoxazole-trimetho prim 400 mg-80 mg Tab) trazodone (traZODONE 150 mg Tab) 1 Tablets By Mouth once a day (at bedtime). Do not give with clonazepam. Refills: 3. PATIENT EDUCATION INFORMATION: Instructions: Abdominal Pain, Adult Follow up: With: Address: When: [place] [address] Business (1) In 3 days 05/13/2024 DIAGNOSIS: 1:Abdominal pain Normal [facility] ED Patient Summaryon 024 ED Patient Summary ED Patient Summary [address] [address] Patient Discharge Instructions Person Information Name: MAEGAN DYE Age: 74 Years Arrival Date: 05/10/2024 17:55:11 Discharge Diagnosis: 1:Abdominal pain Primary Care Physician: AZUL GORMAN CNP Provider Information Primary Provider: Chandan Adhikari DO [employer] Vertical:Malick Ho PA-C The exam and treatment you received in the Emergency Department were for an urgent problem and are not intended as complete care. It is important that you follow up with a doctor, nurse practitioner, or physician???s assistant executive housekeeper for ongoing care. If your symptoms become worse or you do not improve as expected and you are unable to reach your usual health care provider, you should return to the Emergency Department. We are available 24 hours a day. MAEGAN DYE has been given the following list of patient education materials, prescriptions and follow-up instructions: Follow-up Instructions: With: Address: When: [place] [address] Business (1) In 3 days 05/13/2024 In the event that this physician does not participate in your insurance network, please consult with your insurance company to find a nearby participating provider. Patient Education Materials: Abdominal Pain, Adult A MESSAGE TO ALL PATIENTS REGARDING OPIOIDS PRESCRIPTION OPIOIDS: WHAT YOU NEED TO KNOW Prescription opioids can be used to help relieve besqqgyk-eu-tvjunv pain and are often prescribed following a [...] as well, even when taken as directed: ??? Tolerance???meaning you might need to take more of the medication for the same pain relief ??? Physical dependence???meaning you have symptoms of withdrawal when a medication is stopped ??? Increased sensitivity to pain ??? Constipation ??? Nausea, vomiting, and dry mouth ??? Sleepiness and dizziness ??? Confusion ??? Depression ??? Low levels of testosterone that can result in lower sex drive, energy, and strength ??? Itching and sweating RISKS ARE GREATER WITH: ??? History of drug misuse, substance use disorder, or overdose ??? Mental health conditions (such as depression or anxiety) ??? Sleep apnea ??? Older age (65 years and older) ??? Avoid alcohol while taking prescription opioids. Also, unless specifically advised by your health care provider, medications to avoid include: ??? Benzodiazepines (such as Xanax or Valium) ??? Muscle relaxants (such as Soma or Flexeril) ??? Hypnotics (such as Ambien or Lunesta) ??? Other prescription opioids KNOW YOUR OPTIONS Talk to your health care provider about ways to manage your pain that don???t involve prescription opioids. Some of these options may actually work better and have fewer risks and side effects. Options may include: ??? Pain relievers such as acetaminophen, ibuprofen, and naproxen ??? Some medication that are also used for depression or seizures ??? Physical therapy and exercise ??? Cognitive behavioral therapy, a psychological, goal-directed approach, in which patients learn how to modify physical, behavioral, and emotional triggers of pain and stress. IF YOU ARE PRESCRIBED OPIOIDS FOR PAIN: ??? Never take opioids in greater amounts or more often than prescribed. ??? Follow up with your primary health care provider. o Work together to create a plan on how to manage your pain. o Talk about ways to help manage your pain that don???t involve prescription opioids. o Talk about any and all concerns and side effects. ??? Help prevent misuse and abuse o Never sell or share prescription opioids. o Never use another person???s prescription opioids. ??? Store prescription opioids in a secure place and out of reach of others (this may include visitors, children, friends, and family). ??? Safely dispose of unused prescription opioids: Find your community drug take-back program or your pharmacy mail-back program, or flush them down the toilet, following guidance from the Food and Drug Administration (www.fda.gov/Drugs/Resourc esForYou). ??? Visit www.cdc.gov/drugoverdose to learn about the risks of opioids abuse and overdose. ??? If you believe you may be struggling with addiction, tell your health health care aide and a (more content not included)... Normal [facility] Extra Blueon 05-10-2024 Tube Collected Plasma Yes Invalid Interpretation Code [facility] Comment on above: Performed By: #### 1 [id number] #### [facility] [address] [place] [address] HEMATOLOGYOrdered By: SYSTEM SYSTEM on 05-10-2024 Basophils/100 WBC (Bld) 0.7 % Normal 0.0 - 2.0 % Remisol Heme Basophils/Leukocytes Auto (Bld) [Pure # fraction] 0.0 E9/L Normal 0.0 - 0.2 E9/L Remisol Heme Eosinophils (Bld) [#/Vol] 0.2 E9/L Normal 0.0 - 0.5 E9/L Remisol Heme Eosinophils/100 WBC (Bld) 2.6 % Normal 0.0 - 8.0 % Remisol Heme Erythrocyte distribution width (RBC) [Ratio] 13.9 % Normal 10.9 - 14.2 % Remisol Heme Hematocrit (Bld) [Volume fraction] 40.3 % Normal 34.0 - 46.0 % Remisol Heme Hemoglobin (Bld) [Mass/Vol] 13.4 g/dL Normal 12.0 - 16.0 gm/dL Remisol Heme Lymphocytes (Bld) [#/Vol] 1.0 E9/L Normal 1.0 - 4.0 E9/L Remisol Heme Lymphocytes/100 WBC (Bld) 16.0 % Normal 14.0 - 50.0 % Remisol Heme MCH (RBC) [Entitic mass] 29.0 pg Normal 27.0 - 34.0 pg Remisol Heme MCHC (RBC) [Mass/Vol] 33.2 g/dL Normal 31.4 - 36.0 gm/dL Remisol Heme MCV (RBC) [Entitic vol] 87.4 fL Normal 80.0 - 100.0 fL Remisol Heme Monocytes (Bld) [#/Vol] 0.6 E9/L Normal 0.2 - 1.0 E9/L Remisol Heme Monocytes/100 WBC (Bld) 9.6 % Normal 4.0 - 14.0 % Remisol Heme Neutrophils (Bld) [#/Vol] 4.6 E9/L Normal 2.0 - 7.5 E9/L Remisol Heme Neutrophils/100 WBC (Bld) 71.1 % Normal 36.0 - 75.0 % Remisol Heme Platelet mean volume (Bld) [Entitic vol] 7.1 fL Normal 6.4 - 10.8 fL Remisol Heme Platelets (Bld) [#/Vol] 228.0 E9/L Normal 150.0 - 500.0 E9/L Remisol Heme RBC (Bld) [#/Vol] 4.6 E12/L Normal 4.3 - 5.9 E12/L Remisol Heme WBC corrected for nucl RBC Auto (Bld) [#/Vol] 6.5 E9/L Normal 4.0 - 11.0 E9/L Remisol Heme Hep Func Panelon 05-10-2024 Albumin [Mass/Vol] 4.1 g/dL Normal 3.3-5.0 [facility] Comment on above: Performed By: #### 2 [id number] #### [facility] [address] [place] [address] Albumin/Globulin (S) [Mass conc ratio] 1.4 Normal 1.1-2.2 [facility] Comment on above: Performed By: #### 2 [id number] #### [facility] [address] [place] [address] ALP [Catalytic activity/Vol] 86 Int._Unit/L Normal 21-98 [facility] Comment on above: Performed By: #### 2 [id number] #### [facility] [address] [place] [address] ALT No additional P-5'-P [Catalytic activity/Vol] 10 Int._Unit/L Normal 6-46 [facility] Comment on above: Performed By: #### 2 [id number] #### [facility] [address] [place] [address] AST [Catalytic activity/Vol] 20 Int._Unit/L Normal 5-43 [facility] Comment on above: Performed By: #### 2 [id number] #### [facility] [address] [place] [address] Bilirubin [Mass/Vol] 0.6 mg/dL Normal 0.0-1.1 [facility] Comment on above: Performed By: #### 2 [id number] #### [facility] [address] [place] [address] Bilirubin.direct [Mass/Vol] 0.1 mg/dL Normal 0.0-0.4 [facility] Comment on above: Performed By: #### 2 [id number] #### [facility] [address] [place] [address] Bilirubin.indirect [Mass or moles/Vol] 0.5 mg/dL Normal 0.1-0.9 [facility] Comment on above: Performed By: #### 2 [id number] #### [facility] [address] [place] [address] Globulin (S) [Mass/Vol] 3.0 g/dL Normal 1.4-4.0 [facility] Comment on above: Performed By: #### 2 [id number] #### [facility] [address] [place] [address] Protein [Mass/Vol] 7.1 g/dL Normal 6.0-7.8 [facility] Comment on above: Performed By: #### 2 [id number] #### [facility] [address] [place] [address] Lipase Levelon 05-10-2024 Lipase [Catalytic activity/Vol] 23 U/L Normal 13-58 [facility] Comment on above: Performed By: #### 2 [id number] #### [facility] [address] [place] [address] Pre-Arrival Noteon 4 Pre-Arrival Note Pre-Arrival Note Pre-Arrival Summary Name: , Current Date: 05/10/2024 17:56:39 EST Gender: Female Date of : Age: 74 Pre-Arrival Type: EMS ETA: 05/10/2024 18:18:00 EST Primary Care Physician: Presenting Problem: n/v Pre-Arrival User: Sandy Chisholm RN Referring Source: Location: [place] Completion Date/Time: 05/10/2024 17:48:00 [facility] Emergency Department Pre-Hospital Report Form _ Vital Signs: Pre-Hospital Report: Treatment in Route: Response to Treatment: Misc. Issues: Normal [facility] UA with Cult Rflxon 05-10-20 24 Bilirubin Ql (U) Negative Normal Negative [facility] Comment on above: Performed By: #### 4 [id number] #### [facility] [address] [place] [address] Clarity (U) Clear Normal Clear [facility] Comment on above: Performed By: #### 4 [id number] #### [facility] [address] [place] [address] Color (U) Light-Yellow Normal Yellow [facility] Comment on above: Result Comment: Micr oscopic readings are only performed on those samples that meet specific criteria set forth by [facility]. Performed By: #### 4 [id number] #### [facility] [address] [place] [address] Glucose Ql (U) Negative Normal Negative [facility] Comment on above: Performed By: #### 4 [id number] #### [facility] [address] [place] [address] Hemoglobin Auto test strip (U) [Mass/Vol] Negative Normal Negative [facility] Comment on above: Performed By: #### 4 [id number] #### [facility] [address] [place] [address] Ketones Auto test strip Ql (U) Negative Normal Negative [facility] Comment on above: Performed By: #### 4 [id number] #### [facility] [address] [place] [address] Leukocyte esterase Auto test strip Ql (U) Negative Normal Negative [facility] Comment on above: Performed By: #### 4 [id number] #### [facility] [address] [place] [address] Nitrite Auto test strip Ql (U) Negative Normal Negative [facility] Comment on above: Performed By: #### 4 [id number] #### [facility] [address] [place] [address] pH (U) 7.0 [pH] Invalid Interpretation Code 5.0-9.0 [facility] Comment on above: Performed By: #### 4 [id number] #### [facility] [address] [place] [address] Protein Ql (U) Negative Normal Negative [facility] Comment on above: Performed By: #### 4 [id number] #### [facility] [address] [place] [address] Specific gravity (U) [Rel density] 1.010 Invalid Interpretation Code 1.005-1.03 0 [facility] Comment on above: Performed By: #### 4 [id number] #### [facility] [address] [place] [address] Urobilinogen (U) [Mass/Vol] Negative Normal Negative [facility] Comment on above: Performed By: #### 4 [id number] #### [facility] [address] [place] [address] Type of Urine collection method Clean Catch Normal [facility] Comment on above: Performed By: #### 4 [id number] #### [facility] [address] [place] [address] URINALYSISOrdered By: SYSTEM SYSTEM on 05-10-2024 Bilirubin Ql (U) Negative Normal Negativemg /dL [facility] UA Auto SS Clarity (U) Clear (05/10/24 6:14 PM) Normal Clear [facility] UA Auto SS Color (U) Light-Yellow 1 (05/10/24 6:14 PM) Normal Yellow [facility] UA Auto SS Comment on above: Interpretive Data: M icroscopic readings are only performed on those samples that meet specific criteria set forth by [facility]. Glucose Ql (U) Negative Normal Negativemg /dL [facility]A Auto SS Hemoglobin Auto test strip (U) [Mass/Vol] Negative Normal Negativemg /dL [facility] UA Auto SS Ketones Auto test strip Ql (U) Negative Normal Negativemg /dL [facility] UA Auto SS Leukocyte esterase Auto test strip Ql (U) Negative Normal NegativeLe u/uL [facility] UA Auto SS Nitrite Auto test strip Ql (U) Negative Normal Negativemg /dL [facility] UA Auto SS pH (U) 7.0 *NA* (05/10/24 6:14 PM) Invalid Interpretation Code 5.0 - 9.0 [facility] UA Auto SS Protein Ql (U) Negative Normal Negativemg /dL [facility] UA Auto SS Specific gravity (U) [Rel density] 1.010 *NA* (05/10/24 6:14 PM) Invalid Interpretation Code 1.005 - 1.030 [facility] UA Auto SS Urobilinogen (U) [Mass/Vol] Negative Normal Negativemg /dL [facility] UA Auto SS URINALYSISOrdered By: Malick Ho on 05-10-2024 UA Spec Desc Clean Catch (05/10/24 6:14 PM) Normal [facility] UA Auto SS Work Phone: eGFRon 05-10-2024 eGFR 66 mL/min/1.73 m2 Normal >=59 [facility] Comment on above: Performed By: #### 1 [id number] #### [facility] [address] [place] [address] C Urineon 05-06-2024 Bacteria identified Cx Nom (U) Microbiology PROCEDURE: Urine Culture [R1] SOURCE: U CleanCatch BODY SITE: COLLECTED DATE/TIME: 05/03/2024 21:49 EST RECEIVED DATE/TIME: 05/04/2024 02:05 EST START DATE/TIME: 05/04/2024 02:05 EST FREE TEXT SOURCE: Fredy BYRD, Jose Adkins. Fredy BYRD, Jose Adkins. FINAL REPORTS Final Report [] Verified Date/Time: 05/06/2024 14:14 EST <10,000 cfu/ml Mixed skin contaminants Mixed manuel (multiple species present) Performing Locations R1: This test was performed at: [facility], [address] [place] [address], [id number] , [place], Normal [facility] Comment on above: Performed By: #### 2 [id number] #### [facility] [address] [place] [address] ED Note-Physicianon 05-05-20 ED Note-Physician ED Note-Physician Basic Information Time Seen: Alvaro BYRD, Rodrigue Granado 04/17/2024 15:56 Chief Complaint pt states I want to go to [facility]. I dont want to live my life anymore denies plan History of Present Illness 74-year-old female reports to the emergency department with complaints of suicidal ideations. She states that she does not want to live anymore. She states that she is wants to stop living as a cripple . She denies any plan of hurting herself. Reports that she has been admitted to [facility] 1 S. before. She states that she has no plan and no intent previously. Reports that she just feels like she cannot keep ongoing on living this way. Denies any physical complaints. Review of Systems no other aggravating or relieving factors no other associated symptoms no other prior treatments or complaints. Family: Reviewed and noncontributory Social: lives at home Review of systems negative unless otherwise specified in the HPI. Physical Exam Vitals & Measurements T: 36.4 ???C(Oral) HR: 64(Peripheral) RR: 16 BP: 123/69 SpO2: 96% HT: 154 cm WT: 66 kg BMI: 27.83 General: The patient appears well and in no apparent distress. Patient is resting comfortably on bed. Afebrile Skin: Warm, dry, no pallor noted. Head: Normocephalic, atraumatic Neck: No JVD Eye: PERRLA, EOMI ENT: Moist mucus membranes Cardiovascular: Regular rate. normal peripheral perfusion Respiratory: No respiratory distress. no accessory muscle use. no obvious audible wheezing Chest Wall: no deformity Musculoskeletal: normal ROM, no deformity, no swelling GI: No obvious distention Neurological: A&O. moves all extremities equal strength and symmetry Psychiatric: Cooperative and appropriate Medical Decision Making MEDICAL DECISION MAKING Number and Complexity of Problems Differential Diagnosis: [] [facility] Data External documents reviewed: [] My EKG interpretation: [] My CT interpretation: [] My X-ray interpretation: [] My Ultrasound interpretation: [] Decision rules/scores evaluated: [] Discussed with: [] Treatment and Disposition ED Course: 74-year-old female reports emerged department with suicidal ideations. Denies any active plan. Reports symptoms of a slowly been worsening. Exam of the patient is benign. She is medically clear. [facility] did evaluate the patient. After their evaluation, decision was made to safety plan the patient home. I was agreeable with this. Discussed return precautions. Follow-up with your primary care provider in 3 to 5 days. If symptoms worsen, do not improve, or new symptoms arise please report back to emergency department for further evaluation. The patient was understanding and agreeable to plan moving forward. Shared decision making: [] Code status: [] Assessment/Plan Suicidal ideation (R45.851: Suicidal ideations) Orders: CBC w/ Auto Diff Communication Order Comprehensive Metabolic Panel Consult to Mental Health eGFR Ethanol Level Extra Blue Tube Extra SST Tube UA with Cult Rflx Disposition Plan Patient Discharge Condition Stable Discharge Disposition to home Discharge Prescription List Prescriptions No active prescription medications Follow-up With When Contact Information [facility] In 3 days 04/20/2024 EST Additional Instructions: AZUL GORMAN In 3 days 04/20/2024 EST [address] [place] [address]- Business (1) Additional Instructions: Call Dr for diagnosis based follow up Patient Education Suicidal Feelings: How to Help Yourself Attestation Patient seen and evaluated by the physician assistant executive housekeeper. Attending physician was present in the emergency department and supervised care. This visit was performed by both the physician and an APC. I performed all aspects of the MDM as documented. This report was transcribed using voice recognition software. Every effort was made to ensure accuracy, however, inadvertently computerized senior licensing manager mistakes may be present. Appropriate healthcare PPE was used in evaluating this patient. The patient was placed in a mask. The healthcare provider was wearing mask, gloves, and utilizing proper hand hygiene. All equipment was properly cleansed. I performed a substantive part of the MDM during the patient???s E/M visit. I personally made or approved [...] disease), stage III Cognitive impairment COPD without exa (more content not included)... Normal [facility] Comment on above: Result Comment: Elec tronically Signed By: Rodrigue John PA-C\.br\Date and Time Signed: 04/17/24 19:55 EST\.br\Electronically Co-Signed By: Carlos Coates MD\.br\Date and Time Co-Signed: 05/05/24 12:09 EST ED Clinical Summaryon 2023 ED Clinical Summary ED Clinical Summary [place] [address] ED Clinical Summary Person Information Name: MAEGAN DYE/[place] Age: 74 Years : 1950 Sex: Female Language: Dutch PCP: AZUL GORMAN CNP Marital Status: Visit Id: Visit Reason: Dysuria; ISSUES URINATING Speciality: Acuity: 4 Enc Type: Emergency Med Service: Emergency Arrival: 05/04/2024 17:03:37 Discharge: 05/04/2024 19:58:05 LOS: 000 02:55 Checkin: 05/04/2024 17:03:37 Checkout: 05/04/2024 19:58:05 Dispo Type: Left Without Being Seen EVENTS: Event Name Event Status Request Date/Time Start Date/Time Complete Date/Time Arrive Complete 05/04/2024 17:03:37 05/04/2024 17:03:37 05/04/2024 17:03:37 Document Home Meds Request 05/04/2024 17:03:37 Triage Complete 05/04/2024 17:03:37 05/04/2024 17:54:38 05/04/2024 17:54:38 Registration Complete 05/04/2024 17:14:10 05/04/2024 17:14:10 05/04/2024 17:14:10 Reg Complete Request 05/04/2024 17:14:10 Reg Bed Request Complete 05/04/2024 17:14:10 05/04/2024 17:14:10 05/04/2024 17:14:10 Isolation Screening Request 05/04/2024 17:54:38 Pending Labs Request 05/04/2024 18:44:59 Discharge Complete 05/04/2024 19:58:21 05/04/2024 19:58:21 05/04/2024 19:58:21 Transfer Complete 05/04/2024 19:58:21 05/04/2024 19:58:21 05/04/2024 19:58:21 ADDRESS: [address] [place] [address] [address] [facility] [id number] [facility] DOC NOTES: MEDICAL INFORMATION: Prescriptions Given: Medications to Continue with No Changes Other Medications acetaminophen-hydrocodone (Rock 325 mg-5 mg oral tablet) 1 Tablets By Mouth every 6 hours as needed for pain. Refills: 0. amlodipine (amLODIPine 5 mg Tab) 1 Tablets By Mouth every day. TAKE 1 TABLET BY MOUTH EVERY DAY. celecoxib (celecoxib 200 mg Cap) TAKE 1 CAPSULE BY MOUTH EVERY DAY. cephalexin (cephalexin 500 mg Cap) 1 Capsules By Mouth every 12 hours for 5 Days. Refills: 0. clonazepam (clonazepam 1 mg Tab) 1 Tablets By Mouth 3 times a day. TAKE 1 TABLET BY MOUTH THREE TIMES A DAY NEEDED FOR ANXIETY. Refills: 0. docusate (Colace 100 mg Cap) 1 Capsules By Mouth 2 times a day. Hold for diarrhea. Refills: 0. donepezil (donepezil 5 mg Tab) 1 Tablets By Mouth once a day (at bedtime). Ensure (Ensure Vanilla) Drink 1 bottle (8 fl. oz.) BID. Refills: 5. escitalopram (escitalopram 5 mg oral tablet) 1 Tablets By Mouth every day. loratadine (loratadine 10 mg oral capsule) 1 Capsules By Mouth every day. [facility] Prescription (Walker) Dispense one walker. Refills: 0. olanzapine (olanzapine 7.5 mg oral tablet) 1 Tablets By Mouth once a day (at bedtime). ondansetron (ondansetron 4 mg Dis Tab) 1 Tablets By Mouth every 6 hours as needed Nausea/Vomiting. Refills: 0. ondansetron (Zofran ODT 4 mg Tab-Dis) 1 Tablets By Mouth 3 times a day as needed Nausea. Refills: 1. pantoprazole (Pantoprazole [address] Tab) TAKE 1 TABLET BY MOUTH EVERY DAY. phenazopyridine (phenazopyridine 200 mg Tab) 1 Tablets By Mouth after meals. polyethylene glycol 3350 (Miralax 17 gram packet) 17 Gram By Mouth every day. potassium chloride (potassium chloride 10 mEq Cap-ER) 1 Capsules By Mouth every other day. Refills: 2. senna (senna 8.6 mg Tab) 2 Tablets By Mouth once a day (at bedtime). Refills: 0. senna (Senokot 8.6 mg Tab) 2 Tablets By Mouth once a day (at bedtime) as needed for constipation. Refills: 1. sodium chloride 2 gram By Mouth 3 times a day. sulfamethoxazole-trimethop rim (sulfamethoxazole-trimetho prim 400 mg-80 mg Tab) PATIENT EDUCATION INFORMATION: Instructions: Follow up: DIAGNOSIS: Normal [facility] ED Note-Physicianon 05-04-20 ED Note-Physician ED Note-Physician Basic Information Time Seen: Jose Daniel PA-C 05/03/2024 20:51 Chief Complaint pt presents to [facility] with [facility]. per EMS pt son called for confusion. pt axo X4 at this time. pain in legs. denies belly pain. History of Present Illness Patient is a 74-year-old female that presents today via EMS for evaluation of possible confusion. Per EMS the patient's son called them because she was confused. Patient was alert and oriented at the time of their arrival as well as upon her arrival here to the ED. The patient states that she has been having problems socially with living with her son and he has been calling EMS on her despite her having nothing wrong. She states that she does not feel confused and is not having no symptoms at this time. She states occasionally she will have pain in her abdomen and has difficulties with UTIs. She just finished antibiotics for UTI couple weeks ago. Denies any thoughts of harming herself or others. She states that she does not like her living situation currently and is trying to get out of it. Review of Systems No other aggravating or relieving factors no other associated symptoms no other prior treatments or complaints. Family: Reviewed and noncontributory Social: lives at home Review of systems negative unless otherwise specified in the HPI. Physical Exam Vitals & Measurements T: 36.6 ???C(Oral) HR: 79(Peripheral) RR: 18 BP: 160/88 SpO2: 94% HT: 154 cm WT: 63.8 kg BMI: 26.9 General: The patient appears well and in no apparent distress. Patient is resting comfortably on cart. Skin: Warm, dry, no pallor noted. Head: Normocephalic, atraumatic Neck: No JVD Eye: PERRLA, EOMI, normal gaze ENT: Moist mucus membranes Cardiovascular: Regular rate and rhythm. Normal peripheral perfusion Respiratory: CTA bilaterally. No respiratory distress no accessory muscle use no obvious audible wheezing Chest Wall: no deformity Musculoskeletal: normal ROM, no deformity, no swelling GI: Soft no obvious distention. No rebound or rigidity. No guarding. No tenderness. Neurological: A&O moves all extremities equal strength and symmetry. No ataxia with finger-nose or vqfg-aj-bjnn. Intact strength and sensation of bilateral upper and lower extremities. No Dysphasia. Psychiatric: Cooperative and appropriate Medical Decision Making Patient is a 74-year-old female presents today via EMS for evaluation of possible confusion. Per EMS the patient's son called them because she was confused. Patient was alert and oriented at their time of arrival as well as her arrival to the ED. She is having problems with her son calling EMS on her despite her having nothing wrong and has had similar occasions of this over the last couple of weeks. She was just seen here in the ED 5 days ago with complete workup being negative. On exam the patient is afebrile nontoxic-appearing. She is alert and oriented x 4. Unremarkable neuroexam. Abdomen is soft and nontender. CTA to bilateral lung cutler. Single view chest x-ray interpreted by myself is negative for any acute cardiopulmonary process. UA does demonstrate positive nitrate and given her significant history of UTIs we will start her back on Keflex. I had an extensive discussion with the patient that given she is not having any acute confusion despite what is being reported and given her completely unremarkable neuroexam with complete negative workup a couple of days ago we will hold off on any further workup at this time which she agrees with. She will be treated for the UTI and will send it out for culture. She will be discharged home with close follow-up with her PCP. We discussed if she has new or worsening symptoms she should promptly return to the ED. Return to ED precautions were reviewed with the patient at length. Assessment/Plan UTI (urinary tract infection) (N39.0: Urinary tract infection, site not specified) Orders: cephalexin, 500 mg = 1 cap(s), Oral, q12hr, X 5 day(s), # 10 cap(s), Refills(s) 0, Pharmacy: [facility]/pharmacy #[id number], 154, cm, 05/03/24 20:53:00 EST, Height/Length Dosing, 63.8, kg, 05/03/24 20:53:00 EST, Weight Dosing cephalexin, 500 mg = 1 cap(s), Cap, Oral, Once, Stop date 05/03/24 22:18:00 EST, STAT, Start date 05/03/24 22:18:00 EST, 05/03/24 22:18:00 EST Continuous Pulse Oximetry Drug Screen Urine ED Cardiac Monitoring UA with Cult Rflx Urine Culture XR Chest Single View Medications Administered Given cephalexin 500 mg Cap, 500 mg, Oral Disposition Plan Patient Discharge Condition Stable Discharge Disposition Home Discharge Prescription List Prescriptions cephalexin 500 mg Cap, 500 mg= 1 cap(s), Oral, q12hr Follow-up With When Contact Information AZUL GORMAN In 3 days 05/06/2024 EST [address] [place] [address]- Business (1) Additional Instructions: Patient Education Urinary Tract Infection, Adult Attestation Patient seen and evaluated by the physician assistant executive housekeeper. Attending phys (more content not included)... Normal [facility] Comment on above: Result Comment: Elec tronically Signed By: Jose Daniel PA-C\.br\Date and Time Signed: 05/04/24 00:39 EST\.br\Electronically Co-Signed By: Mati Taylor DO\.br\Date and Time Co-Signed: 05/04/24 01:31 EST ED Patient Education Noteon 05-04-2024 ED Patient Education Note ED Patient Education Note Normal [facility] ED Patient Summaryon ED Patient Summary ED Patient Summary [address] [address] Patient Discharge Instructions Person Information Name: MAEGAN DYE Age: 74 Years Arrival Date: 05/04/2024 17:03:37 Discharge Diagnosis: Primary Care Physician: AZUL GORMAN CNP Provider Information Primary Provider: [employer] Up Operator Vertical:None The exam and treatment you received in the Emergency Department were for an urgent problem and are not intended as complete care. It is important that you follow up with a doctor, nurse practitioner, or physician???s assistant executive housekeeper for ongoing care. If your symptoms become [...] opioids can be used to help relieve qjzuetka-yq-xdqoko pain and are often prescribed following a [...] as well, even when taken as directed: ??? Tolerance???meaning you might need to take more of the medication for the same pain relief ??? Physical dependence???meaning you have symptoms of withdrawal when a medication is stopped ??? Increased sensitivity to pain ??? Constipation ??? Nausea, vomiting, and dry mouth ??? Sleepiness and dizziness ??? Confusion ??? Depression ??? Low levels of testosterone that can result in lower sex drive, energy, and strength ??? Itching and sweating RISKS ARE GREATER WITH: ??? History of drug misuse, substance use disorder, or overdose ??? Mental health conditions (such as depression or anxiety) ??? Sleep apnea ??? Older age (65 years and older) ??? Avoid alcohol while taking prescription opioids. Also, unless specifically advised by your health care provider, medications to avoid include: ??? Benzodiazepines (such as Xanax or Valium) ??? Muscle relaxants (such as Soma or Flexeril) ??? Hypnotics (such as Ambien or Lunesta) ??? Other prescription opioids KNOW YOUR OPTIONS Talk to your health care provider about ways to manage your pain that don???t involve prescription opioids. Some of these options may actually work better and have fewer risks and side effects. Options may include: ??? Pain relievers such as acetaminophen, ibuprofen, and naproxen ??? Some medication that are also used for depression or seizures ??? Physical therapy and exercise ??? Cognitive behavioral therapy, a psychological, goal-directed approach, in which patients learn how to modify physical, behavioral, and emotional triggers of pain and stress. IF YOU ARE PRESCRIBED OPIOIDS FOR PAIN: ??? Never take opioids in greater amounts or more often than prescribed. ??? Follow up with your primary health care provider. o Work together to create a plan on how to manage your pain. o Talk about ways to help manage your pain that don???t involve prescription opioids. o Talk about any and all concerns and side effects. ??? Help prevent misuse and abuse o Never sell or share prescription opioids. o Never use another person???s prescription opioids. ??? Store prescription opioids in a secure place and out of reach of others (this may include visitors, children, friends, and family). ??? Safely dispose of unused prescription opioids: Find your community drug take-back program or your pharmacy mail-back program, or flush them down the toilet, following guidance from the Food and Drug Administration (www.fda.gov/Drugs/Resourc esForYou). ??? Visit www.cdc.gov/drugoverdose to learn about the risks of opioids abuse and overdose. ??? If you believe you may be struggling with addiction, tell your health health care aide and ask for guidance or call [facility]???S National Helpline at 2-680-607-QWII. v Source: [place] Department of Health and Human Services/Center for Disease Control & Prevention [facility] Medicatio (more content not included)... Normal [facility] XR Chest Single Viewon 05-04 XR Chest Single View Exam Date/Time: 05/03/2024 22:00 EST Reason for Exam: Altered Mental Status;Other (please specify) Report IMPRESSION: NO RADIOGRAPHIC EVIDENCE OF ACUTE INTRATHORACIC PROCESS. EXAM: XR Chest Single View History: Altered mental status Technique: Portable AP view of the chest. Comparison: 04/04/2024 Findings: The cardiomediastinal silhouette is within normal limits. No pneumothorax, pleural effusion, or consolidation. Hyperinflation of the lungs and increased bronchovascular markings suggesting COPD. No acute osseous abnormality. Ordering Provider: Jose Daniel FINAL REPORT Dictated: 05/04/2024 10:37 am Skyler Khalil DO Signed (Electronic Signature): 05/04/2024 10:37 am Signed by: Skyler Khalil DO Transcribed by: GLORIA Technologist: MELISSA Technical Comments Radiation Dose: Ka,r in mGy = na DAP = na Normal [facility] CHEMISTRYOrdered By: SYSTEM SYSTEM on 05-03-2024 Amphetamines Screen method >1000 ng/mL Ql (U) NEGATIVE 7 (05/03/24 9:49 PM) Normal NEGATIVE Remisol Chem Comment on above: Interpretive Data: N egative Cutoff: <1000 ng/mL Barbiturates Screen Ql (U) NEGATIVE 8 (05/03/24 9:49 PM) Normal NEGATIVE Remisol Chem Comment on above: Interpretive Data: N egative Cutoff: <200 ng/mL Benzodiazepines Ql (U) NEGATIVE 1 (05/03/24 9:49 PM) Normal NEGATIVE Remisol Chem Comment on above: Interpretive Data: N egative Cutoff: <200 ng/mL Cannabinoids Screen Ql (U) NEGATIVE 6 (05/03/24 9:49 PM) Normal NEGATIVE Remisol Chem Comment on above: Interpretive Data: N egative Cutoff: <50 ng/mL Cocaine Ql (U) NEGATIVE 2 (05/03/24 9:49 PM) Normal NEGATIVE Remisol Chem Comment on above: Interpretive Data: N egative Cutoff: <300 ng/mL Opiates Screen Ql (U) NEGATIVE 4 (05/03/24 9:49 PM) Normal NEGATIVE Remisol Chem Comment on above: Interpretive Data: N egative Cutoff: <300 ng/mL Phencyclidine Screen method >25 ng/mL Ql (U) NEGATIVE 5 (05/03/24 9:49 PM) Normal NEGATIVE Remisol Chem Comment on above: Interpretive Data: N egative Cutoff: <25 ng/mL These drug screen results are to be used for medical (i.e., treatment) purposes only. Unconfirmed drug screening results must not be used for non-medical purposes (e.g., employment testing, legal testing). U Fentanyl NEGATIVE 9 (05/03/24 9:49 PM) Normal NEGATIVE Remisol Chem Comment on above: Interpretive Data: N egative Cutoff: <5 ng/mL These drug screen results are to be used for medical (i.e., treatment) purposes only. Unconfirmed drug screening results must not be used for non-medical purposes (e.g., employment testing, legal testing). ED Clinical Summaryon 2023 ED Clinical Summary ED Clinical Summary [address] [address] ED Clinical Summary Person Information Name: MAEGAN DYE/[facility] Age: 74 Years : 1950 Sex: Female Language: Dutch PCP: AZUL GORMAN CNP Marital Status: Visit Id: Visit Reason: Medical problem - minor; Confusion Speciality: Acuity: 3 Enc Type: Emergency Med Service: Emergency Arrival: 05/03/2024 20:44:04 Discharge: 05/03/2024 22:38:14 LOS: 000 01:54 Checkin: 05/03/2024 20:44:04 Checkout: 05/03/2024 22:38:14 Dispo Type: Home (Routine DC) EVENTS: Event Name Event Status Request Date/Time Start Date/Time Complete Date/Time Arrive Complete 05/03/2024 20:44:04 05/03/2024 20:44:04 05/03/2024 20:44:04 Document Home Meds Request 05/03/2024 20:44:04 Triage Complete 05/03/2024 20:44:04 05/03/2024 20:53:50 05/03/2024 20:53:50 Bed Assign Complete 05/03/2024 20:44:04 05/03/2024 20:44:04 05/03/2024 20:44:04 Dr Exam Complete 05/03/2024 20:44:04 05/03/2024 20:51:54 05/03/2024 20:51:54 RN Exam Complete 05/03/2024 20:44:04 05/03/2024 20:55:41 05/03/2024 20:55:41 Registration Complete 05/03/2024 20:51:54 05/03/2024 20:55:12 05/03/2024 20:55:12 Isolation Screening Request 05/03/2024 20:53:51 Reg Complete Request 05/03/2024 20:55:12 Reg Bed Request Complete 05/03/2024 20:55:12 05/03/2024 20:55:12 05/03/2024 20:55:12 Dr Exam Complete 05/03/2024 20:57:37 05/03/2024 20:57:37 05/03/2024 20:57:37 Registration Request 05/03/2024 20:57:37 X-Ray Complete 05/03/2024 21:39:50 05/03/2024 22:05:12 05/03/2024 22:06:42 Pending Labs Complete 05/03/2024 21:39:50 05/03/2024 22:19:57 Lab Complete 05/03/2024 21:39:50 05/03/2024 22:19:57 Urine Collect Complete 05/03/2024 21:39:50 05/03/2024 22:17:18 RT Request 05/03/2024 21:39:50 Wet Read Request 05/03/2024 22:06:42 Pending Labs Collected 05/03/2024 22:10:22 05/03/2024 22:10:22 Lab Collected 05/03/2024 22:10:22 05/03/2024 22:10:22 Meds Admin Complete 05/03/2024 22:18:44 05/03/2024 22:24:09 Discharge Complete 05/03/2024 22:20:04 05/03/2024 22:38:20 05/03/2024 22:38:20 Transfer Complete 05/03/2024 22:38:20 05/03/2024 22:38:20 05/03/2024 22:38:20 ADDRESS: [facility] [address] [facility] [phone] PHYS DOC NOTES: MEDICAL INFORMATION: Prescriptions Given: New Medications [facility]/pharmacy #[id number], [address] [place], [place] [phone], [phone] cephalexin (cephalexin 500 mg Cap) 1 Capsules By Mouth every 12 hours for 5 Days. Refills: 0. Medications to Continue with No Changes Other Medications acetaminophen-hydrocodone (Rock 325 mg-5 mg oral tablet) 1 Tablets By Mouth every 6 hours as needed for pain. Refills: 0. amlodipine (amLODIPine 5 mg Tab) 1 Tablets By Mouth every day. TAKE 1 TABLET BY MOUTH EVERY DAY. celecoxib (celecoxib 200 mg Cap) TAKE 1 CAPSULE BY MOUTH EVERY DAY. clonazepam (clonazepam 1 mg Tab) 1 Tablets By Mouth 3 times a day. TAKE 1 TABLET BY MOUTH THREE TIMES A DAY NEEDED FOR ANXIETY. Refills: 0. docusate (Colace 100 mg Cap) 1 Capsules By Mouth 2 times a day. Hold for diarrhea. Refills: 0. donepezil (donepezil 5 mg Tab) 1 Tablets By Mouth once a day (at bedtime). Ensure (Ensure Vanilla) Drink 1 bottle (8 fl. oz.) BID. Refills: 5. escitalopram (escitalopram 5 mg oral tablet) 1 Tablets By Mouth every day. loratadine (loratadine 10 mg oral capsule) 1 Capsules By Mouth every day. [facility] Prescription (Walker) Dispense one walker. Refills: 0. olanzapine (olanzapine 7.5 mg oral tablet) 1 Tablets By Mouth once a day (at bedtime). ondansetron (ondansetron 4 mg Dis Tab) 1 Tablets By Mouth every 6 hours as needed Nausea/Vomiting. Refills: 0. ondansetron (Zofran ODT 4 mg Tab-Dis) 1 Tablets By Mouth 3 times a day as needed Nausea. Refills: 1. pantoprazole (Pantoprazole [address] Tab) TAKE 1 TABLET BY MOUTH EVERY DAY. phenazopyridine (phenazopyridine 200 mg Tab) 1 Tablets By Mouth after meals. polyethylene glycol 3350 (Miralax 17 gram packet) 17 Gram By Mouth every day. potassium chloride (potassium chloride 10 mEq Cap-ER) 1 Capsules By Mouth every other day. Refills: 2. senna (senna 8.6 mg Tab) 2 Tablets By Mouth once a day (at bedtime). Refills: 0. senna (Senokot 8.6 mg Tab) 2 Tablets By Mouth once a day (at bedtime) as needed for constipation. Refills: 1. sodium chloride 2 gram By Mouth 3 times a day. sulfamethoxazole-trimethop rim (sulfamethoxazole-trimetho prim 400 mg-80 mg Tab) PATIENT EDUCATION INFORMATION: Instructions: Urinary Tract Infection, Adult Follow up: With: Address: When: [place] [address] [employer] In 3 days 05/06/2024 DIAGNOSIS: UTI (urinary tract infection) Normal [facility] ED Patient Summaryon 024 ED Patient Summary ED Patient Summary [address] [address] Patient Discharge Instructions Person Information Name: MAEGAN DYE Age: 74 Years Arrival Date: 05/03/2024 20:44:04 Discharge Diagnosis: UTI (urinary tract infection) Primary Care Physician: AZUL GORMAN CNP Provider Information Primary Provider: Mati Taylor DO [employer] Vertical:Jose Daniel PA-C The exam and treatment you received in the Emergency Department were for an urgent problem and are not intended as complete care. It is important that you follow up with a doctor, nurse practitioner, or physician???s assistant executive housekeeper for ongoing care. If your symptoms become worse or you do not improve as expected and you are unable to reach your usual health care provider, you should return to the Emergency Department. We are available 24 hours a day. MAEGAN DYE has been given the following list of patient education materials, prescriptions and follow-up instructions: Follow-up Instructions: With: Address: When: AZUL VITA [address] [place], [place] [address] [address] Business (1) In 3 days 05/06/2024 In the event that this physician does not participate in your insurance network, please consult with your insurance company to find a nearby participating provider. Patient Education Materials: Urinary Tract Infection, Adult A MESSAGE TO ALL PATIENTS REGARDING OPIOIDS PRESCRIPTION OPIOIDS: WHAT YOU NEED TO KNOW Prescription opioids can be used to help relieve tgyezcsb-it-ogbvmu pain and are often prescribed following a [...] as well, even when taken as directed: ??? Tolerance???meaning you might need to take more of the medication for the same pain relief ??? Physical dependence???meaning you have symptoms of withdrawal when a medication is stopped ??? Increased sensitivity to pain ??? Constipation ??? Nausea, vomiting, and dry mouth ??? Sleepiness and dizziness ??? Confusion ??? Depression ??? Low levels of testosterone that can result in lower sex drive, energy, and strength ??? Itching and sweating RISKS ARE GREATER WITH: ??? History of drug misuse, substance use disorder, or overdose ??? Mental health conditions (such as depression or anxiety) ??? Sleep apnea ??? Older age (65 years and older) ??? Avoid alcohol while taking prescription opioids. Also, unless specifically advised by your health care provider, medications to avoid include: ??? Benzodiazepines (such as Xanax or Valium) ??? Muscle relaxants (such as Soma or Flexeril) ??? Hypnotics (such as Ambien or Lunesta) ??? Other prescription opioids KNOW YOUR OPTIONS Talk to your health care provider about ways to manage your pain that don???t involve prescription opioids. Some of these options may actually work better and have fewer risks and side effects. Options may include: ??? Pain relievers such as acetaminophen, ibuprofen, and naproxen ??? Some medication that are also used for depression or seizures ??? Physical therapy and exercise ??? Cognitive behavioral therapy, a psychological, goal-directed approach, in which patients learn how to modify physical, behavioral, and emotional triggers of pain and stress. IF YOU ARE PRESCRIBED OPIOIDS FOR PAIN: ??? Never take opioids in greater amounts or more often than prescribed. ??? Follow up with your primary health care provider. o Work together to create a plan on how to manage your pain. o Talk about ways to help manage your pain that don???t involve prescription opioids. o Talk about any and all concerns and side effects. ??? Help prevent misuse and abuse o Never sell or share prescription opioids. o Never use another person???s prescription opioids. ??? Store prescription opioids in a secure place and out of reach of others (this may include visitors, children, friends, and family). ??? Safely dispose of unused prescription opioids: Find your community drug take-back program or your pharmacy mail-back program, or flush them down the toilet, following guidance from the Food and Drug Administration (www.fda.gov/Drugs/Resourc esForYou). ??? Visit www.cdc.gov/drugoverdose to learn about the risks of opioids abuse and overdose. ??? If you believe you may be struggling with addiction, tell your healt (more content not included)... Normal [facility] Pre-Arrival Noteon Pre-Arrival Note Pre-Arrival Note Pre-Arrival Summary Name: , [place] [facility] Current Date: 05/03/2024 20:44:33 EST Gender: Female Date of : Age: 74 Pre-Arrival Type: EMS ETA: 05/03/2024 21:05:00 EST Primary Care Physician: Presenting Problem: sundowners? Pre-Arrival User: Mar Russell RN Referring Source: Location: [place] Completion Date/Time: 05/03/2024 20:35:00 [facility] Emergency Department Pre-Hospital Report Form _ Vital Signs: Pre-Hospital Report: Treatment in Route: Response to Treatment: Misc. Issues: Normal [facility] U Drug Screenon 05-03-2024 Amphetamines Screen method >1000 ng/mL Ql (U) Negative Normal NEGATIVE [facility] Comment on above: Result Comment: Nega tive Cutoff: <1000 ng/mL Performed By: #### 2 [id number] #### [facility] [address] [place] [address] Barbiturates Screen Ql (U) Negative Normal NEGATIVE [facility] Comment on above: Result Comment: Nega tive Cutoff: <200 ng/mL Performed By: #### 2 [id number] #### [facility] [address] [place] [address] Benzodiazepines Ql (U) Negative Normal NEGATIVE [facility] Comment on above: Result Comment: Nega tive Cutoff: <200 ng/mL Performed By: #### 2 [id number] #### [facility] [address] [place] [address] Cannabinoids Screen Ql (U) Negative Normal NEGATIVE [facility] Comment on above: Result Comment: Nega tive Cutoff: <50 ng/mL Performed By: #### 2 [id number] #### [facility] [address] [place] [address] Cocaine Ql (U) Negative Normal NEGATIVE [facility] Comment on above: Result Comment: Nega tive Cutoff: <300 ng/mL Performed By: #### 2 [id number] #### [facility] [address] [place] [address] Opiates Screen Ql (U) Negative Normal NEGATIVE [facility] Comment on above: Result Comment: Nega tive Cutoff: <300 ng/mL Performed By: #### 2 [id number] #### [facility] [address] [place] [address] Phencyclidine Screen method >25 ng/mL Ql (U) Negative Normal NEGATIVE [facility] Comment on above: Result Comment: Nega tive Cutoff: <25 ng/mL These drug screen results are to be used for medical (i.e., treatment) purposes only. Unconfirmed drug screening results must not be used for non-medical purposes (e.g., employment testing, legal testing). Performed By: #### 2 [id number] #### [facility] [address] [place] [address] U Fentanyl Negative Normal NEGATIVE [facility] Comment on above: Result Comment: Nega tive Cutoff: <5 ng/mL These drug screen results are to be used for medical (i.e., treatment) purposes only. Unconfirmed drug screening results must not be used for non-medical purposes (e.g., employment testing, legal testing). Performed By: #### 2 [id number] #### [facility] [address] [place] [address] UA with Cult Rflxon 05-03-20 24 Bilirubin Ql (U) Negative Normal Negative [facility] Comment on above: Performed By: #### 4 [id number] #### [facility] [address] [place] [address] Clarity (U) Clear Normal Clear [facility] Comment on above: Performed By: #### 4 [id number] #### [facility] [address] [place] [address] Color (U) Dark-Yellow Abnormal Yellow [facility] Comment on above: Result Comment: Micr oscopic readings are only performed on those samples that meet specific criteria set forth by [facility]. Performed By: #### 4 [id number] #### [facility] [address] [place] [address] Epithelial cells.squamous Auto (Urine sed) [#/Area] 0-2 Invalid Interpretation Code [facility] Comment on above: Performed By: #### 4 [id number] #### [facility] [address] [place] [address] Glucose Ql (U) Negative Normal Negative [facility] Comment on above: Performed By: #### 4 [id number] #### [facility] [address] [place] [address] Hemoglobin Auto test strip (U) [Mass/Vol] Negative Normal Negative [facility] Comment on above: Performed By: #### 4 [id number] #### [facility] [address] [place] [address] Ketones Auto test strip Ql (U) Negative Normal Negative [facility] Comment on above: Performed By: #### 4 [id number] #### [facility] [address] [place] [address] Leukocyte esterase Auto test strip Ql (U) Negative Normal Negative [facility] Comment on above: Performed By: #### 4 [id number] #### [facility] [address] [place] [address] Mucus Auto Ql (U) Negative Normal Negative [facility] Comment on above: Performed By: #### 4 [id number] #### [facility] [address] [place] [address] Nitrite Auto test strip Ql (U) 1+ mg/dL Abnormal Negative [facility] Comment on above: Performed By: #### 4 [id number] #### [facility] [address] [place] [address] pH (U) 6.0 [pH] Invalid Interpretation Code 5.0-9.0 [facility] Comment on above: Performed By: #### 4 [id number] #### [facility] [address] [place] [address] Protein Ql (U) Negative Normal Negative [facility] Comment on above: Performed By: #### 4 [id number] #### [facility] [address] [place] [address] RBC Ql (U) 0-3 Normal 0-3 [facility] Comment on above: Performed By: #### 4 [id number] #### [facility] [address] [place] [address] Specific gravity (U) [Rel density] 1.004 Invalid Interpretation Code 1.005-1.03 0 [facility] Comment on above: Performed By: #### 4 [id number] #### [facility] [address] [place] [address] Urobilinogen (U) [Mass/Vol] Negative Normal Negative [facility] Comment on above: Performed By: #### 4 [id number] #### [facility] [address] [place] [address] WBC Auto (Urine sed) [#/Area] 0-5 Normal 0-5 [facility] Comment on above: Performed By: #### 4 [id number] #### [facility] [address] [place] [address] Type of Urine collection method Clean Catch Normal [facility] Comment on above: Performed By: #### 4 [id number] #### [facility] [address] [place] [address] URINALYSISOrdered By: SYSTEM SYSTEM on 05-03-2024 Bilirubin Ql (U) Negative Normal Negativemg /dL [facility] UA Auto SS Clarity (U) Clear (05/03/24 9:49 PM) Normal Clear [facility] UA Auto SS Color (U) Dark-Yellow 3 *ABN* (05/03/24 9:49 PM) Invalid Interpretation Code Yellow [facility] UA Auto SS Comment on above: Interpretive Data: M icroscopic readings are only performed on those samples that meet specific criteria set forth by [facility]. Epithelial cells.squamous Auto (Urine sed) [#/Area] 0-2 graded/HPF Invalid Interpretation Code [facility] UA Auto SS Glucose Ql (U) Negative Normal Negativemg /dL [facility] UA Auto SS Hemoglobin Auto test strip (U) [Mass/Vol] Negative Normal Negativemg /dL [facility]A Auto SS Ketones Auto test strip Ql (U) Negative Normal Negativemg /dL [facility] Auto SS Leukocyte esterase Auto test strip Ql (U) Negative Normal NegativeLe u/uL [facility] Auto SS Mucus Auto Ql (U) Negative Normal Negativegr aded/LPF [facility]A Auto SS Nitrite Auto test strip Ql (U) 1+ mg/dL Invalid Interpretation Code Negativemg /dL [facility] Auto SS pH (U) 6.0 *NA* (05/03/24 9:49 PM) Invalid Interpretation Code 5.0 - 9.0 [facility]A Auto SS Protein Ql (U) Negative Normal Negativemg /dL [facility] Auto SS RBC Ql (U) 0-3 graded/HPF Normal 0-3graded/ HPF [facility]A Auto SS Specific gravity (U) [Rel density] 1.004 *NA* (05/03/24 9:49 PM) Invalid Interpretation Code 1.005 - 1.030 [facility] UA Auto SS Urobilinogen (U) [Mass/Vol] Negative Normal Negativemg /dL [facility]A Auto SS WBC Auto (Urine sed) [#/Area] 0-5 graded/HPF Normal 0-5graded/ HPF [facility]A Auto SS URINALYSISOrdered By: Jose Daniel on 05-03-2024 UA Spec Desc Clean Catch (05/03/24 9:49 PM) Normal [facility] UA Auto SS C Urineon 04-30-2024 Bacteria identified Cx Nom (U) Microbiology PROCEDURE: Urine Culture [R1] SOURCE: U CleanCatch BODY SITE: COLLECTED DATE/TIME: 04/28/2024 12:59 EST RECEIVED DATE/TIME: 04/28/2024 14:30 EST START DATE/TIME: 04/28/2024 14:30 EST FREE TEXT SOURCE: Alvaro BYRD, Rodrigue Cruz. Alvaro BYRD, Rodrigue Cruz. FINAL REPORTS Final Report [] Verified Date/Time: 04/30/2024 09:02 EST 200 cfu/ml Mixed skin contaminants Performing Locations R1: This test was performed at: [facility], [address] [place] [address], [id number] , [place], Normal [facility] Comment on above: Performed By: #### 2 [id number] #### [facility] [address] [place] [address] CHEMISTRYOrdered By: SYSTEM SYSTEM on 04-28-2024 Albumin [Mass/Vol] 4.1 g/dL Normal 3.3 - 5.0 gm/dL [facility] Albumin/Globulin [Mass ratio] 1.4 {ratio} Normal 1.1 - 2.2 [facility] ALP [Catalytic activity/Vol] 90 [iU]/d Normal 21 - 98 Int._Unit/ L [facility] ALT No additional P-5'-P [Catalytic activity/Vol] 10 [iU]/d Normal 6 - 46 Int._Unit/ L [facility] Amphetamines Screen method >1000 ng/mL Ql (U) NEGATIVE 8 (04/28/24 12:59 PM) Normal NEGATIVE [facility] Comment on above: Interpretive Data: N egative Cutoff: <1000 ng/mL Anion gap [Moles/Vol] 8 mmol/L Normal 6 - 16 mEq/L [facility] AST [Catalytic activity/Vol] 20 [iU]/d Normal 5 - 43 Int._Unit/ L [facility] Barbiturates Screen Ql (U) NEGATIVE 9 (04/28/24 12:59 PM) Normal NEGATIVE [facility] Comment on above: Interpretive Data: N egative Cutoff: <200 ng/mL Benzodiazepines Ql (U) NEGATIVE 1 (04/28/24 12:59 PM) Normal NEGATIVE [facility] Comment on above: Interpretive Data: N egative Cutoff: <200 ng/mL Bilirubin [Mass/Vol] 0.6 mg/dL Normal 0.0 - 1 .1 mg/dL [facility] Calcium [Mass/Vol] 8.9 mg/dL Normal 8.9 - 11. 1 mg/dL [facility] Cannabinoids Screen Ql (U) NEGATIVE 7 (04/28/24 12:59 PM) Normal NEGATIVE [facility] Comment on above: Interpretive Data: N egative Cutoff: <50 ng/mL Chloride [Moles/Vol] 99 mmol/L Low 101 - 1 11 mmol/L [facility] CO2 [Moles/Vol] 33 mmol/L High 21 - 31 mmol/L [facility] Cocaine Ql (U) NEGATIVE 2 (04/28/24 12:59 PM) Normal NEGATIVE [facility] Comment on above: Interpretive Data: N egative Cutoff: <300 ng/mL Creatinine [Mass/Vol] 1.0 mg/dL Normal 0.5 - 1.3 mg/dL [facility] eGFR 58 mL/min/1.73 m2 Low >=59mL/min /1.73 m2 [facility] Ethanol Lvl mg/dL Normal <=11mg/dL [facility] Globulin (S) [Mass/Vol] 2.9 g/dL Normal 1.4 - 4.0 gm/dL [facility] Glucose [Mass/Vol] 109 mg/dL Normal 55 - 199 mg/dL [facility] Opiates Screen Ql (U) POSITIVE 4, 5 *ABN* (04/28/24 12:59 PM) Invalid Interpretation Code NEGATIVE [facility] Comment on above: Result Comment: Resu lt verified by repeat analysis, Unconfirmed by alternate method No Confirmation Requested by Physician Called to Kemi Arita in ED by lorena. Interpretive Data: N egative Cutoff: <300 ng/mL Phencyclidine Screen method >25 ng/mL Ql (U) NEGATIVE 6 (04/28/24 12:59 PM) Normal NEGATIVE [facility] Comment on above: Interpretive Data: N egative Cutoff: <25 ng/mL These drug screen results are to be used for medical (i.e., treatment) purposes only. Unconfirmed drug screening results must not be used for non-medical purposes (e.g., employment testing, legal testing). Potassium [Moles/Vol] 3.4 mmol/L Low 3.5 - 5.3 mmol/L [facility] Protein [Mass/Vol] 7.0 g/dL Normal 6.0 - 7.8 gm/dL [facility] Sodium [Moles/Vol] 137 mmol/L Normal 135 - 145 mmol/L [facility] U Fentanyl NEGATIVE 10 (04/28/24 12:59 PM) Normal NEGATIVE [facility] Comment on above: Interpretive Data: N egative Cutoff: <5 ng/mL These drug screen results are to be used for medical (i.e., treatment) purposes only. Unconfirmed drug screening results must not be used for non-medical purposes (e.g., employment testing, legal testing). Urea nitrogen [Mass/Vol] 9 mg/dL Normal 5 - 21 mg/dL [facility] Urea nitrogen/Creatinine [Mass ratio] 9 mg/mg Low 10 - 20 [facility] HEMATOLOGYOrdered By: SYSTEM SYSTEM on 04-28-2024 Basophils/100 WBC (Bld) 0.6 % Normal 0.0 - 2.0 % [facility] Basophils/Leukocytes Auto (Bld) [Pure # fraction] 0.0 E9/L Normal 0.0 - 0.2 E9/L [facility] Eosinophils (Bld) [#/Vol] 0.2 E9/L Normal 0.0 - 0.5 E9/L [facility] Eosinophils/100 WBC (Bld) 2.9 % Normal 0.0 - 8.0 % [facility] Erythrocyte distribution width (RBC) [Ratio] 13.5 % Normal 10.9 - 14.2 % [facility] Hematocrit (Bld) [Volume fraction] 40.2 % Normal 34.0 - 46.0 % [facility] Hemoglobin (Bld) [Mass/Vol] 13.4 g/dL Normal 12.0 - 16.0 gm/dL [facility] Lymphocytes (Bld) [#/Vol] 1.4 E9/L Normal 1.0 - 4.0 E9/L [facility] Lymphocytes/100 WBC (Bld) 21.9 % Normal 14.0 - 50.0 % [facility] MCH (RBC) [Entitic mass] 29.2 pg Normal 27.0 - 34.0 pg [facility] MCHC (RBC) [Mass/Vol] 33.4 g/dL Normal 31.4 - 36.0 gm/dL [facility] MCV (RBC) [Entitic vol] 87.4 fL Normal 80.0 - 100.0 fL [facility] Monocytes (Bld) [#/Vol] 0.7 E9/L Normal 0.2 - 1.0 E9/L [facility] Monocytes/100 WBC (Bld) 11.7 % Normal 4.0 - 14.0 % [facility] Neutrophils (Bld) [#/Vol] 4.0 E9/L Normal 2.0 - 7.5 E9/L [facility] Neutrophils/100 WBC (Bld) 62.9 % Normal 36.0 - 75.0 % [facility] Platelet 250.0 E9/L Normal 150.0 - 500.0 E9/L [facility] Platelet mean volume (Bld) [Entitic vol] 7.1 fL Normal 6.4 - 10.8 fL [facility] RBC (Bld) [#/Vol] 4.6 E12/L Normal 4.3 - 5.9 E12/L [facility] WBC corrected for nucl RBC Auto (Bld) [#/Vol] 6.4 E9/L Normal 4.0 - 11.0 E9/L [facility] URINALYSISOrdered By: SYSTEM SYSTEM on 04-28-2024 Bacteria Auto Ql (U) Trace /HPF Normal Trace/HPF [facility] Auto SS Bilirubin Ql (U) Negative Normal Negativemg /dL [facility]A Auto SS Clarity (U) Clear (04/28/24 12:59 PM) Normal Clear [facility] UA Auto SS Color (U) Yellow 3 (04/28/24 12:59 PM) Normal Yellow [facility] UA Auto SS Comment on above: Interpretive Data: M icroscopic readings are only performed on those samples that meet specific criteria set forth by [facility]. Epithelial cells.renal Computer assisted Ql (U) 0-2 graded/HPF Invalid Interpretation Code [facility] UA Auto SS Epithelial cells.squamous Auto (Urine sed) [#/Area] 3-4 graded/HPF Invalid Interpretation Code [facility] UA Auto SS Glucose Ql (U) Negative Normal Negativemg /dL [facility]A Auto SS Hemoglobin Auto test strip (U) [Mass/Vol] Negative Normal Negativemg /dL [facility]A Auto SS Hyaline casts LM Ql (Urine sed) 0-3 graded/LPF Normal 0-3graded/ LPF [facility] UA Auto SS Ketones Auto test strip Ql (U) Negative Normal Negativemg /dL [facility]A Auto SS Leukocyte esterase Auto test strip Ql (U) 75 Gretchen/uL Gretchen/uL Invalid Interpretation Code NegativeLe u/uL [facility] UA Auto SS Mucus Auto Ql (U) Negative Normal Negativegr aded/LPF [facility] Auto SS Nitrite Auto test strip Ql (U) Negative Normal Negativemg /dL [facility]A Auto SS pH (U) 6.0 *NA* (04/28/24 12:59 PM) Invalid Interpretation Code 5.0 - 9.0 [facility] UA Auto SS Protein Ql (U) Negative Normal Negativemg /dL [facility] UA Auto SS RBC Ql (U) 0-3 graded/HPF Normal 0-3graded/ HPF [facility] UA Auto SS Specific gravity (U) [Rel density] 1.005 *NA* (04/28/24 12:59 PM) Invalid Interpretation Code 1.005 - 1.030 [facility] Auto SS Urobilinogen (U) [Mass/Vol] Negative Normal Negativemg /dL [facility] Auto SS WBC Auto (Urine sed) [#/Area] 6-15 graded/HPF Invalid Interpretation Code 0-5graded/ HPF [facility] UA Auto SS URINALYSISOrdered By: Rodrigue ferrara on 04-28-2024 UA Spec Desc Clean Catch (04/28/24 12:59 PM) Normal [facility] UA Auto SS Work Phone: ED Note-Physicianon 04-27-20 ED Note-Physician ED Note-Physician Basic Information Time Seen: Chandan Adhikari DO 04/26/2024 18:39 Chief Complaint patient presents with urinary retention since 0300 History of Present Illness A 74-year-old female reports to the emergency department with complaints of urinary retention. She states that she and the cannot pee. Reports currently on antibiotic for UTI. Denies any fevers or chills. Denies any belly pain. States that she does have self cathing at home but does not want a Choi. Review of Systems No other aggravating or relieving factors no other associated symptoms no other prior treatments or complaints. Family: Reviewed and noncontributory Social: lives at home Review of systems negative unless otherwise specified in the HPI. Physical Exam Vitals & Measurements T: 37.1 ???C(Oral) HR: 77(Monitored) RR: 20 BP: 139/67 SpO2: 97% HT: 154 cm WT: 65.8 kg BMI: 27.74 General: The patient appears well and in no apparent distress. Patient is resting comfortably on bed. Skin: Warm, dry, no pallor noted. Head: Normocephalic, atraumatic Neck: No JVD Eye: PERRLA, EOMI ENT: Moist mucus membranes Cardiovascular: Regular rate. normal peripheral perfusion Respiratory: No respiratory distress. no accessory muscle use. no obvious audible wheezing Chest Wall: no deformity Musculoskeletal: normal ROM, no deformity, no swelling GI: No obvious distention. No abdominal tenderness. Neurological: A&O. moves all extremities equal strength and symmetry Psychiatric: Cooperative and appropriate Medical Decision Making MEDICAL DECISION MAKING Number and Complexity of Problems Differential Diagnosis: [] [facility] Data External documents reviewed: [] My EKG interpretation: [] My CT interpretation: [] My X-ray interpretation: [] My Ultrasound interpretation: [] Decision rules/scores evaluated: [] Discussed with: [] Treatment and Disposition ED Course: 74-year-old female reports to the emergency department via squad after complaints of urinary retention. Once here, patient urinates. We did bladder scan and postvoid residual was less than 200 cc. She is currently on antibiotics for UTI. She is currently on Keflex which is covering at this time. No signs of urinary retention. Discussed follow-up with urology. Follow-up with your primary care provider in 3 to 5 days. If symptoms worsen, do not improve, or new symptoms arise please report back to emergency department for further evaluation. The patient was understanding and agreeable to plan moving forward. Shared decision making: [] Code status: [] Assessment/Plan Urinary retention (R33.9: Retention of urine, unspecified) Orders: .UA With Cult Reflex UA with Cult Rflx Urine Culture Disposition Plan Patient Discharge Condition Stable Discharge Disposition To home Discharge Prescription List Prescriptions No active prescription medications Follow-up With When Contact Information AZUL GORMAN In 3 days 04/29/2024 EST [address] [place] [address]- [facility] (1) Additional Instructions: Call Dr for diagnosis based follow up Attestation Patient seen and evaluated by the physician assistant executive housekeeper. Attending physician was present in the emergency department and supervised care. This visit was performed by both the physician and an APC. I performed all aspects of the MDM as documented. This report was transcribed using voice recognition software. Every effort was made to ensure accuracy, however, inadvertently computerized senior licensing manager mistakes may be present. Appropriate healthcare PPE was used in evaluating this patient. The patient was placed in a mask. The healthcare provider was wearing mask, gloves, and utilizing proper hand hygiene. All equipment was properly cleansed. I performed a substantive part of the MDM during the patient???s E/M visit. I personally made or approved [...] incomplete bladder emptying Vitamin D deficiency Historical Acc (more content not included)... Normal [facility] Comment on above: Result Comment: Elec tronically Signed By: Rodrigue John PA-C\.br\Date and Time Signed: 04/26/24 23:02 EST\.br\Electronically Co-Signed By: Chandan Adhikari DO\.br\Date and Time Co-Signed: 04/27/24 07:28 EST .UA With Cult Reflexon 04-26 Bilirubin Ql (U) 1+ Abnormal Negative [facility] Comment on above: Result Comment: Urin e dipstick chemistry results may be inaccurate due to intense urine color. Performed By: #### 1 [id number] #### [facility] [address] [place] [address] Clarity (U) CLEAR Normal Clear [facility] Comment on above: Result Comment: Urin e dipstick chemistry results may be inaccurate due to intense urine color. Performed By: #### 1 [id number] #### [facility] [address] [place] [address] Color (U) ORANGE Abnormal Yellow [facility] Comment on above: Result Comment: Urin e dipstick chemistry results may be inaccurate due to intense urine color. Performed By: #### 1 [id number] #### [facility] [address] [place] [address] Epithelial cells.squamous LM.HPF (Urine sed) [#/Area] 0-2 Normal [facility] Comment on above: Performed By: #### 1 [id number] #### [facility] [address] [place] [address] Glucose Ql (U) TRACE Abnormal Negative [facility] Comment on above: Result Comment: Urin e dipstick chemistry results may be inaccurate due to intense urine color. Performed By: #### 1 [id number] #### [facility] [address] [place] [address] Hemoglobin Auto test strip (U) [Mass/Vol] Negative Normal Negative [facility] Comment on above: Result Comment: Urin e dipstick chemistry results may be inaccurate due to intense urine color. Performed By: #### 1 [id number] #### [facility] [address] [place] [address] Ketones Ql (U) Negative Normal Negative [facility] Comment on above: Result Comment: Urin e dipstick chemistry results may be inaccurate due to intense urine color. Performed By: #### 1 [id number] #### [facility] [address] [place] [address] Leukocyte esterase Auto test strip Ql (U) TRACE Abnormal Negative [facility] Comment on above: Result Comment: Urin e dipstick chemistry results may be inaccurate due to intense urine color. Performed By: #### 1 [id number] #### [facility] [address] [place] [address] Nitrite Auto test strip Ql (U) Positive Abnormal Negative [facility] Comment on above: Result Comment: Urin e dipstick chemistry results may be inaccurate due to intense urine color. Performed By: #### 1 [id number] #### [facility] [address] [place] [address] pH (U) 5.5 [pH] Invalid Interpretation Code 5.0-9.0 [facility] Comment on above: Result Comment: Urin e dipstick chemistry results may be inaccurate due to intense urine color. Performed By: #### 1 [id number] #### [facility] [address] [place] [address] Protein Ql (U) 1+ Abnormal Negative [facility] Comment on above: Result Comment: Urin e dipstick chemistry results may be inaccurate due to intense urine color. Performed By: #### 1 [id number] #### [facility] [address] [place] [address] RBC Ql (U) 0-3 Normal 0-3 [facility] Comment on above: Performed By: #### 1 [id number] #### [facility] [address] [place] [address] Specific gravity (U) [Rel density] 1.010 Invalid Interpretation Code 1.005-1.03 0 [facility] Comment on above: Result Comment: Urin e dipstick chemistry results may be inaccurate due to intense urine color. Performed By: #### 1 [id number] #### [facility] [address] [place] [address] Type of Urine collection method Clean Catch Normal [facility] Comment on above: Result Comment: Urin e dipstick chemistry results may be inaccurate due to intense urine color. Performed By: #### 1 [id number] #### [facility] [address] [place] [address] Urobilinogen Qn (U) 4.0 {Rolan'U}/dL Abnormal 0.0-1.0 [facility] Comment on above: Result Comment: Urin e dipstick chemistry results may be inaccurate due to intense urine color. Performed By: #### 1 [id number] #### [facility] [address] [place] [address] WBC LM.HPF (Urine sed) [#/Area] 0-5 Normal 0-5 [facility] Comment on above: Performed By: #### 1 [id number] #### [facility] [address] [place] [address] ED Clinical Summaryon 2023 ED Clinical Summary ED Clinical Summary [address] [address] ED Clinical Summary Person Information [facility]: [facility] Age[facility] 74 Years : 1950 Sex: Female Language: Dutch PCP: AZUL GORMAN CNP Marital Status: Visit Id: Visit Reason: Urinary retention; URINARY ISSUES Speciality: Acuity: 4 Enc Type: Emergency Med Service: Emergency Arrival: 04/26/2024 18:36:28 Discharge: 04/26/2024 19:32:52 LOS: 000 00:56 Checkin: 04/26/2024 18:36:28 Checkout: 04/26/2024 19:32:52 Dispo Type: Home (Routine DC) EVENTS: Event Name Event Status Request Date/Time Start Date/Time Complete Date/Time Arrive Complete 04/26/2024 18:36:28 04/26/2024 18:36:28 04/26/2024 18:36:28 Document Home Meds Request 04/26/2024 18:36:28 Triage Complete 04/26/2024 18:36:28 04/26/2024 18:39:36 04/26/2024 18:39:36 Bed Assign Complete 04/26/2024 18:37:06 04/26/2024 18:37:06 04/26/2024 18:37:06 Dr Exam Complete 04/26/2024 18:37:06 04/26/2024 18:37:45 04/26/2024 18:37:45 RN Exam Complete 04/26/2024 18:37:06 04/26/2024 18:41:36 04/26/2024 18:41:36 Registration Complete 04/26/2024 18:37:45 04/26/2024 19:21:21 04/26/2024 19:21:21 Dr Exam Complete 04/26/2024 18:38:00 04/26/2024 18:38:00 04/26/2024 18:38:00 Dr Exam Complete 04/26/2024 18:39:29 04/26/2024 18:39:29 04/26/2024 18:39:29 Isolation Screening Request 04/26/2024 18:39:36 Pending Labs Complete 04/26/2024 18:39:37 04/26/2024 19:09:33 Dr Exam Complete 04/26/2024 18:40:19 04/26/2024 18:40:19 04/26/2024 18:40:19 Pending Labs Complete 04/26/2024 19:07:04 04/26/2024 19:07:04 04/26/2024 19:20:43 Lab Complete 04/26/2024 19:07:04 04/26/2024 19:07:04 04/26/2024 19:20:43 Urine Collect Complete 04/26/2024 19:07:04 04/26/2024 19:07:04 04/26/2024 19:20:43 Pending Labs Collected 04/26/2024 19:09:33 04/26/2024 19:09:33 Lab Collected 04/26/2024 19:09:33 04/26/2024 19:09:33 Discharge Complete 04/26/2024 19:13:45 04/26/2024 19:32:57 04/26/2024 19:32:57 Reg Complete Request 04/26/2024 19:21:21 Reg Bed Request Complete 04/26/2024 19:21:21 04/26/2024 19:21:21 04/26/2024 19:21:21 Transfer Complete 04/26/2024 19:32:57 04/26/2024 19:32:57 04/26/2024 19:32:57 ADDR[place]: [address] [place] [id number] PHYS DOC NOTES: MEDICAL INFORMATION: Prescriptions Given: Medications to Continue with No Changes Other Medications acetaminophen-hydrocodone (Rock 325 mg-5 mg oral tablet) 1 Tablets By Mouth every 6 hours as needed for pain. Refills: 0. amlodipine (amLODIPine 5 mg Tab) 1 Tablets By Mouth every day. TAKE 1 TABLET BY MOUTH EVERY DAY. celecoxib (celecoxib 200 mg Cap) TAKE 1 CAPSULE BY MOUTH EVERY DAY. cephalexin (Keflex 500 mg Cap) 1 Capsules By Mouth every 12 hours for 5 Days. Refills: 0. ciprofloxacin (Cipro 250 mg Tab) 1 Tablets By Mouth every 12 hours for 7 Days. Refills: 0. clonazepam (clonazepam 1 mg Tab) 1 Tablets By Mouth 3 times a day. TAKE 1 TABLET BY MOUTH THREE TIMES A DAY NEEDED FOR ANXIETY. Refills: 0. docusate (Colace 100 mg Cap) 1 Capsules By Mouth 2 times a day. Hold for diarrhea. Refills: 0. docusate (Colace 50 mg oral capsule) 1 Capsules By Mouth 2 times a day as needed for constipation for 10 Days. Refills: 0. donepezil (donepezil 5 mg Tab) 1 Tablets By Mouth once a day (at bedtime). Ensure (Ensure Vanilla) Drink 1 bottle (8 fl. oz.) BID. Refills: 5. escitalopram (escitalopram 5 mg oral tablet) 1 Tablets By Mouth every day. fluticasone nasal (fluticasone 0.05 mg/inh Nasal [place]) 2 Sprays Nasal Inhalation every day. each nostril. Refills: 5. loratadine (loratadine 10 mg oral capsule) 1 Capsules By Mouth every day. [facility] Prescription (Walker) Dispense one walker. Refills: 0. olanzapine (olanzapine 7.5 mg oral tablet) 1 Tablets By Mouth once a day (at bedtime). ondansetron (ondansetron 4 mg Dis Tab) 1 Tablets By Mouth every 6 hours as needed Nausea/Vomiting. Refills: 0. ondansetron (Zofran ODT 4 mg Tab-Dis) 1 Tablets By Mouth 3 times a day as needed Nausea. Refills: 1. pantoprazole (Pantoprazole [address] Tab) TAKE 1 TABLET BY MOUTH EVERY DAY. phenazopyridine (phenazopyridine 200 mg Tab) 1 Tablets By Mouth after meals. polyethylene glycol 3350 (Miralax 17 gram packet) 17 Gram By Mouth every day. potassium chloride (potassium chloride 10 mEq Cap-ER) 1 Capsules By Mouth every other day. Refills: 2. senna (senna 8.6 mg Tab) 2 Tablets By Mouth once a day (at bedtime). Refills: 0. senna (Senokot 8.6 mg Tab) 2 Tablets By Mouth once a day (at bedtime) as needed for constipation. Refills: 1. sodium chloride 2 gram By Mouth 3 times a day. sulfamethoxazole-trimethop rim (sulfamethoxazole-trimetho prim 400 mg-80 mg Tab) trazodone (traZODONE 150 mg Tab) 1 Tablets By Mouth once a day (at bedtime). Do not give with clonazepam. Refills: 3. PATIENT EDUCATION INFORMATION: Instructions: Follow up: With: Address: When: AZUL GORMAN [address] [place] [address] [place] (more content not included)... Normal [facility] ED Patient Education Noteon 04-26-2024 ED Patient Education Note ED Patient Education Note Normal [facility] ED Patient Summaryon 024 ED Patient Summary ED Patient Summary [place] [id number] Patient Discharge Instructions Person Information Name: MAEGAN DYE Age: 74 Years Arrival Date: 04/26/2024 18:36:28 Discharge Diagnosis: Urinary retention Primary Care Physician: AZUL GORMAN CNP Provider Information Primary Provider: Chandan Adhikari DO [employer] Vertical:None The exam and treatment you received in the Emergency Department were for an urgent problem and are not intended as complete care. It is important that you follow up with a doctor, nurse practitioner, or physician???s assistant executive housekeeper for ongoing care. If your symptoms become worse or you do not improve as expected and you are unable to reach your usual health care provider, you should return to the Emergency Department. We are available 24 hours a day. MAEGAN DYE has been given the following list of patient education materials, prescriptions and follow-up instructions: Follow-up Instructions: With: Address: When: AZUL GORMAN [place], [place] [id number] Business (1) In 3 days 04/29/2024 Comments: Call Dr for diagnosis based follow up In the event that this physician does not participate in your insurance network, please consult with your insurance company to find a nearby participating provider. Patient Education Materials: A MESSAGE TO ALL PATIENTS REGARDING OPIOIDS PRESCRIPTION OPIOIDS: WHAT YOU NEED TO KNOW Prescription opioids can be used to help relieve volagdqk-wp-tdtaev pain and are often prescribed following a [...] as well, even when taken as directed: ??? Tolerance???meaning you might need to take more of the medication for the same pain relief ??? Physical dependence???meaning you have symptoms of withdrawal when a medication is stopped ??? Increased sensitivity to pain ??? Constipation ??? Nausea, vomiting, and dry mouth ??? Sleepiness and dizziness ??? Confusion ??? Depression ??? Low levels of testosterone that can result in lower sex drive, energy, and strength ??? Itching and sweating RISKS ARE GREATER WITH: ??? History of drug misuse, substance use disorder, or overdose ??? Mental health conditions (such as depression or anxiety) ??? Sleep apnea ??? Older age (65 years and older) ??? Avoid alcohol while taking prescription opioids. Also, unless specifically advised by your health care provider, medications to avoid include: ??? Benzodiazepines (such as Xanax or Valium) ??? Muscle relaxants (such as Soma or Flexeril) ??? Hypnotics (such as Ambien or Lunesta) ??? Other prescription opioids KNOW YOUR OPTIONS Talk to your health care provider about ways to manage your pain that don???t involve prescription opioids. Some of these options may actually work better and have fewer risks and side effects. Options may include: ??? Pain relievers such as acetaminophen, ibuprofen, and naproxen ??? Some medication that are also used for depression or seizures ??? Physical therapy and exercise ??? Cognitive behavioral therapy, a psychological, goal-directed approach, in which patients learn how to modify physical, behavioral, and emotional triggers of pain and stress. IF YOU ARE PRESCRIBED OPIOIDS FOR PAIN: ??? Never take opioids in greater amounts or more often than prescribed. ??? Follow up with your primary health care provider. o Work together to create a plan on how to manage your pain. o Talk about ways to help manage your pain that don???t involve prescription opioids. o Talk about any and all concerns and side effects. ??? Help prevent misuse and abuse o Never sell or share prescription opioids. o Never use another person???s prescription opioids. ??? Store prescription opioids in a secure place and out of reach of others (this may include visitors, children, friends, and family). ??? Safely dispose of unused prescription opioids: Find your community drug take-back program or your pharmacy mail-back program, or flush them down the toilet, following guidance from the Food and Drug Administration (www.fda.gov/Drugs/Resourc esForYou). ??? Visit www.cdc.gov/drugoverdose to learn about the risks of opioids abuse and overdose. ??? If you believe you may be struggling with addiction, tell your health care professio (more content not included)... Normal [facility] Pre-Arrival Noteon 4 Pre-Arrival Note Pre-Arrival Note Pre-Arrival Summary Name: Maegan polo/MAIA Lopez Current Date: 04/26/2024 18:37:20 EST Gender: Female Date of : Age: 74 Pre-Arrival Type: EMS ETA: 04/26/2024 18:54:00 EST Primary Care Physician: Presenting Problem: urinary problems Pre-Arrival User: Daphnie Santiago RN Referring Source: Location: [place] Completion Date/Time: 04/26/2024 18:25:00 [facility] Emergency Department Pre-Hospital Report Form _ Vital Signs: Pre-Hospital Report: Treatment in Route: Response to Treatment: Misc. Issues: Normal [facility] UA with Cult Rflxon 04-26-20 24 Bilirubin Ql (U) TNP Invalid Interpretation Code [facility] Comment on above: Result Comment: Test Not Performed Due To Interfering Substance-color. See .UA with cult reflex order for results. Performed By: #### 4 [id number] #### [facility] [address] [place] [address] Clarity (U) TNP Invalid Interpretation Code [facility] Comment on above: Result Comment: Test Not Performed Due To Interfering Substance-color. See .UA with cult reflex order for results. Performed By: #### 4 [id number] #### [facility] [address] [place] [address] Color (U) TNP Invalid Interpretation Code [facility] Comment on above: Result Comment: Test Not Performed Due To Interfering Substance-color. See .UA with cult reflex order for results. Microscopic readings are only performed on those samples that meet specific criteria set forth by [facility]. Performed By: #### 4 [id number] #### [facility] [address] [facility] [place] [address] Glucose Ql (U) TNP Invalid Interpretation Code [facility] Comment on above: Result Comment: Test Not Performed Due To Interfering Substance-color. See .UA with cult reflex order for results. Performed By: #### 4 [id number] #### [facility] [address] [place] [address] Hemoglobin Auto test strip (U) [Mass/Vol] TNP Invalid Interpretation Code [facility] Comment on above: Result Comment: Test Not Performed Due To Interfering Substance-color. See .UA with cult reflex order for results. Performed By: #### 4 [id number] #### [facility] [address] [place] [address] Ketones Auto test strip Ql (U) TNP Invalid Interpretation Code [facility] Comment on above: Result Comment: Test Not Performed Due To Interfering Substance-color. See .UA with cult reflex order for results. Performed By: #### 4 [id number] #### [facility] [address] [place] [address] Leukocyte esterase Auto test strip Ql (U) TNP Invalid Interpretation Code [facility] Comment on above: Result Comment: Test Not Performed Due To Interfering Substance-color. See .UA with cult reflex order for results. Performed By: #### 4 [id number] #### [facility] [address] [place] [address] Nitrite Auto test strip Ql (U) TNP Invalid Interpretation Code [facility] Comment on above: Result Comment: Test Not Performed Due To Interfering Substance-color. See .UA with cult reflex order for results. Performed By: #### 4 [id number] #### [facility] [address] [place] [address] pH (U) TNP Invalid Interpretation Code 5.0-9.0 [facility] Comment on above: Result Comment: Test Not Performed Due To Interfering Substance-color. See .UA with cult reflex order for results. Performed By: #### 4 [id number] #### [facility] [address] [place] [address] Protein Ql (U) TNP Invalid Interpretation Code [facility] Comment on above: Result Comment: Test Not Performed Due To Interfering Substance-color. See .UA with cult reflex order for results. Performed By: #### 4 [id number] #### [facility] [address] [place] [address] Specific gravity (U) [Rel density] TNP Invalid Interpretation Code 1.005-1.03 0 [facility] Comment on above: Result Comment: Test Not Performed Due To Interfering Substance-color. See .UA with cult reflex order for results. Performed By: #### 4 [id number] #### [facility] [address] [place] [address] Urobilinogen (U) [Mass/Vol] TNP Invalid Interpretation Code [facility] Comment on above: Result Comment: Test Not Performed Due To Interfering Substance-color. See .UA with cult reflex order for results. Performed By: #### 4 [id number] #### [facility] [address] [place] [address] Type of Urine collection method Clean Catch Normal [facility] Comment on above: Performed By: #### 4 [id number] #### [facility] [address] [place] [address] URINALYSISOrdered By: Kellen Garvin on 04-26-2024 Bilirubin Ql (U) TNP Invalid Interpretation Code [facility] Auto SS Comment on above: Result Comment: Test Not Performed Due To Interfering Substance-color. See .UA with cult reflex order for results. Bilirubin Ql (U) 1+ 2 *ABN* (04/26/24 6:56 PM) Invalid Interpretation Code Negative [facility] Auto SS Comment on above: Result Comment: Urin e dipstick chemistry results may be inaccurate due to intense urine color. Clarity (U) TNP Invalid Interpretation Code [facility] UA Auto SS Comment on above: Result Comment: Test Not Performed Due To Interfering Substance-color. See .UA with cult reflex order for results. Clarity (U) Clear 22 (04/26/24 6:56 PM) Normal Clear [facility] UA Auto SS Comment on above: Result Comment: Urin e dipstick chemistry results may be inaccurate due to intense urine color. Color (U) TNP Invalid Interpretation Code [facility] UA Auto SS Comment on above: Result Comment: Test Not Performed Due To Interfering Substance-color. See .UA with cult reflex order for results. Interpretive Data: M icroscopic readings are only performed on those samples that meet specific criteria set forth by [facility]. Color (U) Vinson 5 *ABN* (04/26/24 6:56 PM) Invalid Interpretation Code Yellow [facility] Auto SS Comment on above: Result Comment: Urin e dipstick chemistry results may be inaccurate due to intense urine color. Epithelial cells.squamous LM.HPF (Urine sed) [#/Area] 0-2 /HPF Normal [facility] UA Auto SS Glucose Ql (U) TNP Invalid Interpretation Code [facility]A Auto SS Comment on above: Result Comment: Test Not Performed Due To Interfering Substance-color. See .UA with cult reflex order for results. Glucose Ql (U) Trace mg/dL Invalid Interpretation Code Negativemg /dL [facility]A Auto SS Comment on above: Result Comment: Urin e dipstick chemistry results may be inaccurate due to intense urine color. Hemoglobin Auto test strip (U) [Mass/Vol] TNP Invalid Interpretation Code [facility]A Auto SS Comment on above: Result Comment: Test Not Performed Due To Interfering Substance-color. See .UA with cult reflex order for results. Hemoglobin Auto test strip (U) [Mass/Vol] Negative 20 (04/26/24 6:56 PM) Normal Negative [facility] UA Auto SS Comment on above: Result Comment: Urin e dipstick chemistry results may be inaccurate due to intense urine color. Ketones Auto test strip Ql (U) TNP Invalid Interpretation Code [facility]A Auto SS Comment on above: Result Comment: Test Not Performed Due To Interfering Substance-color. See .UA with cult reflex order for results. Ketones Ql (U) Negative Normal Negativemg /dL [facility]A Auto SS Comment on above: Result Comment: Urin e dipstick chemistry results may be inaccurate due to intense urine color. Leukocyte esterase Auto test strip Ql (U) TNP Invalid Interpretation Code [facility] UA Auto SS Comment on above: Result Comment: Test Not Performed Due To Interfering Substance-color. See .UA with cult reflex order for results. Leukocyte esterase Auto test strip Ql (U) Trace Gretchen/uL Invalid Interpretation Code NegativeLe u/uL [facility] UA Auto SS Comment on above: Result Comment: Urin e dipstick chemistry results may be inaccurate due to intense urine color. Nitrite Auto test strip Ql (U) TNP Invalid Interpretation Code [facility] UA Auto SS Comment on above: Result Comment: Test Not Performed Due To Interfering Substance-color. See .UA with cult reflex order for results. Nitrite Auto test strip Ql (U) Positive Invalid Interpretation Code Negativemg /dL [facility] UA Auto SS Comment on above: Result Comment: Urin e dipstick chemistry results may be inaccurate due to intense urine color. pH (U) TNP Invalid Interpretation Code 5.0 - 9.0 [facility] UA Auto SS Comment on above: Result Comment: Test Not Performed Due To Interfering Substance-color. See .UA with cult reflex order for results. pH (U) 5.5 24 *NA* (04/26/24 6:56 PM) Invalid Interpretation Code 5.0 - 9.0 [facility] UA Auto SS Comment on above: Result Comment: Urin e dipstick chemistry results may be inaccurate due to intense urine color. Protein Ql (U) TNP Invalid Interpretation Code [facility] [facility] Comment on above: Result Comment: Test Not Performed Due To Interfering Substance-color. See .UA with cult reflex order for results. Protein Ql (U) 1+ 15 *ABN* (04/26/24 6:56 PM) Invalid Interpretation Code Negative [facility] Comment on above: Result Comment: Urin e dipstick chemistry results may be inaccurate due to intense urine color. RBC Ql (U) 0-3 /HPF Normal 0-3/HPF [facility] Specific gravity (U) [Rel density] TNP Invalid Interpretation Code 1.005 - 1.030 [facility] Comment on above: Result Comment: Test Not Performed Due To Interfering Substance-color. See .UA with cult reflex order for results. Specific gravity (U) [Rel density] 1.010 26 *NA* (04/26/24 6:56 PM) Invalid Interpretation Code 1.005 - 1.030 [facility] Comment on above: Result Comment: Urin e dipstick chemistry results may be inaccurate due to intense urine color. UA Spec Desc Clean Catch 18 (04/26/24 6:56 PM) Normal [facility] Comment on above: Result Comment: Urin e dipstick chemistry results may be inaccurate due to intense urine color. Urobilinogen (U) [Mass/Vol] TNP Invalid Interpretation Code [facility] Comment on above: Result Comment: Test Not Performed Due To Interfering Substance-color. See .UA with cult reflex order for results. Urobilinogen Qn (U) [id number] {Rolan'U}/dL Inv alid Interpretation Code 0.0 - 1.0 EU/dL [facility] Comment on above: Result Comment: Urin e dipstick chemistry results may be inaccurate due to intense urine color. WBC LM.HPF (Urine sed) [#/Area] 0-5 /HPF Normal 0-5/HPF [facility] URINALYSISOrdered By: Rodrigue ferrara on 04-26-2024 UA Spec Desc Clean Catch (04/26/24 6:56 PM) Normal [facility] Work Phone: ED Clinical Summaryon 2023 ED Clinical Summary ED Clinical Summary [address] [address] ED Clinical Summary Person Information [facility]: [facility] Age[facility] 74 Years : 1950 Sex: Female Language: Dutch PCP: AZUL GORMAN CNP Marital Status: Visit Id: Visit Reason: Urinary retention; UNABLE TO URINATE Speciality: Acuity: 4 Enc Type: Emergency Med Service: Emergency Arrival: 04/25/2024 13:58:05 Discharge: 04/25/2024 15:38:27 LOS: 000 01:40 Checkin: 04/25/2024 13:58:05 Checkout: 04/25/2024 15:38:27 Dispo Type: Home (Routine DC) EVENTS: Event Name Event Status Request Date/Time Start Date/Time Complete Date/Time Arrive Complete 04/25/2024 13:58:05 04/25/2024 13:58:05 04/25/2024 13:58:05 Document Home Meds Request 04/25/2024 13:58:05 Triage Complete 04/25/2024 13:58:05 04/25/2024 14:22:12 04/25/2024 14:22:12 Registration Complete 04/25/2024 14:05:29 04/25/2024 14:05:29 04/25/2024 14:05:29 Reg Complete Request 04/25/2024 14:05:29 Reg Bed Request Complete 04/25/2024 14:05:29 04/25/2024 14:05:29 04/25/2024 14:05:29 Bed Assign Complete 04/25/2024 14:16:02 04/25/2024 14:16:02 04/25/2024 14:16:02 Dr Exam Complete 04/25/2024 14:16:03 04/25/2024 14:27:18 04/25/2024 14:27:18 RN Exam Complete 04/25/2024 14:16:03 04/25/2024 14:34:39 04/25/2024 14:34:39 Isolation Screening Request 04/25/2024 14:22:12 Registration Request 04/25/2024 14:27:18 Dr Exam Complete 04/25/2024 14:30:58 04/25/2024 14:30:58 04/25/2024 14:30:58 Fall Risk Request 04/25/2024 14:34:40 Discharge Complete 04/25/2024 15:27:27 04/25/2024 15:38:33 04/25/2024 15:38:33 Transfer Complete 04/25/2024 15:38:33 04/25/2024 15:38:33 04/25/2024 15:38:33 ADDRESS: [address] [place] [address] [address] [facility] [phone] [facility] DOC NOTES: MEDICAL INFORMATION: Prescriptions Given: Medications to Continue with No Changes Other Medications acetaminophen-hydrocodone (Rock 325 mg-5 mg oral tablet) 1 Tablets By Mouth every 6 hours as needed for pain. Refills: 0. amlodipine (amLODIPine 5 mg Tab) 1 Tablets By Mouth every day. TAKE 1 TABLET BY MOUTH EVERY DAY. celecoxib (celecoxib 200 mg Cap) TAKE 1 CAPSULE BY MOUTH EVERY DAY. cephalexin (Keflex 500 mg Cap) 1 Capsules By Mouth every 12 hours for 5 Days. Refills: 0. ciprofloxacin (Cipro 250 mg Tab) 1 Tablets By Mouth every 12 hours for 7 Days. Refills: 0. clonazepam (clonazepam 1 mg Tab) 1 Tablets By Mouth 3 times a day. TAKE 1 TABLET BY MOUTH THREE TIMES A DAY NEEDED FOR ANXIETY. Refills: 0. docusate (Colace 100 mg Cap) 1 Capsules By Mouth 2 times a day. Hold for diarrhea. Refills: 0. docusate (Colace 50 mg oral capsule) 1 Capsules By Mouth 2 times a day as needed for constipation for 10 Days. Refills: 0. donepezil (donepezil 5 mg Tab) 1 Tablets By Mouth once a day (at bedtime). Ensure (Ensure Vanilla) Drink 1 bottle (8 fl. oz.) BID. Refills: 5. escitalopram (escitalopram 5 mg oral tablet) 1 Tablets By Mouth every day. fluticasone nasal (fluticasone 0.05 mg/inh Nasal [place]berry) 2 Sprays Nasal Inhalation every day. each nostril. Refills: 5. loratadine (loratadine 10 mg oral capsule) 1 Capsules By Mouth every day. [facility] Prescription (Walker) Dispense one walker. Refills: 0. olanzapine (olanzapine 7.5 mg oral tablet) 1 Tablets By Mouth once a day (at bedtime). ondansetron (ondansetron 4 mg Dis Tab) 1 Tablets By Mouth every 6 hours as needed Nausea/Vomiting. Refills: 0. ondansetron (Zofran ODT 4 mg Tab-Dis) 1 Tablets By Mouth 3 times a day as needed Nausea. Refills: 1. pantoprazole (Pantoprazole [address] Tab) TAKE 1 TABLET BY MOUTH EVERY DAY. phenazopyridine (phenazopyridine 200 mg Tab) 1 Tablets By Mouth after meals. polyethylene glycol 3350 (Miralax 17 gram packet) 17 Gram By Mouth every day. potassium chloride (potassium chloride 10 mEq Cap-ER) 1 Capsules By Mouth every other day. Refills: 2. senna (senna 8.6 mg Tab) 2 Tablets By Mouth once a day (at bedtime). Refills: 0. senna (Senokot 8.6 mg Tab) 2 Tablets By Mouth once a day (at bedtime) as needed for constipation. Refills: 1. sodium chloride 2 gram By Mouth 3 times a day. sulfamethoxazole-trimethop rim (sulfamethoxazole-trimetho prim 400 mg-80 mg Tab) trazodone (traZODONE 150 mg Tab) 1 Tablets By Mouth once a day (at bedtime). Do not give with clonazepam. Refills: 3. PATIENT EDUCATION INFORMATION: Instructions: Dysuria Follow up: With: Address: When: [place] [address] Business (1) In 3 days 04/28/2024 DIAGNOSIS: Dysuria Normal [facility] ED Note-Physicianon 04-25-20 ED Note-Physician ED Note-Physician Basic Information Time Seen: Vic BYRDMalick 04/25/2024 14:27 Chief Complaint pt c/o urinary retention, has known UTI. here on april 21, started on cipro for UTI, was called the next day to get a different antibiotic she started on the History of Present Illness 74-year-old female comes to the ED for evaluation of dysuria. She has a history of chronic dysuria with recurrent UTI secondary to neurogenic bladder and retention. She recently was diagnosed with UTI, but her culture returned resistant to his antibiotic. She was called and a new antibiotic was prescribed which she states took a couple days to started, she just started it 2 days ago. She continues have some dysuria and felt she was not able to urinate and comes to the ED for evaluation. However, shortly after arrival here she states she urinates a difficulty, and is not requesting discharge home to continue with her antibiotic. No fever, chills, nausea, vomiting. Review of Systems A 10 point review of systems is negative except as noted above. Medical and Surgical History: Reviewed and noted Social history: Lives at home Tobacco: Denies Physical Exam Vitals & Measurements T: 36.9 ???C(Oral) HR: 77(Peripheral) RR: 18 BP: 136/72 SpO2: 93% HT: 154 cm WT: 64.1 kg BMI: 27.03 Nurses notes and vital signs reviewed and patient is not hypoxic. General: The patient appears well, resting comfortably. Skin: Warm, dry. Head: Atraumatic. Neck: No JVD. Eye: Normal conjunctiva. Ears, Nose, Mouth, and Throat: Moist mucous membranes. Cardiovascular: Strong distal pulses. Chest wall: Respiratory: Respirations are nonlabored. Back: Normal range of motion. Musculoskeletal: Normal ROM with no gross deformity. Gastrointestinal: Urological: Neurological: Awake and alert. No focal deficits. Follows commands. Psychiatric: Cooperative. Medical Decision Making Patient presents for evaluation of chronic dysuria and urinary retention. Shortly after being triaged patient was able to urinate here without difficulty, now requesting discharge home to continue with her antibiotics as prescribed which is very reasonable. She is to follow-up with her PCP, and return to the ED if symptoms worsen or change. Assessment/Plan Dysuria (R30.0: Dysuria) Disposition Plan Patient Discharge Condition Disposition: Discharged home Condition: Improved and stable Counseled: Patient and/or family were counseled to workup, results, treatment plan and follow-up recommendations Discharge Prescription List Prescriptions No active prescription medications Follow-up With When Contact Information AZUL GORMAN In 3 days 04/28/2024 [place] [address] Business (1) Additional Instructions: Patient Education Dysuria Attestation I performed a substantive part of the MDM during the patient???s E/M visit. I personally made or approved the documented management plan and acknowledge its risk of complications. (Independent Interpretation) My (EKG/X-Ray/US/CT) interpretation as above. (Discussion) Management/test interpretation discussed with APC. This report was transcribed using voice recognition software. Every effort was made to ensure accuracy, however, inadvertently computerized senior licensing manager mistakes may be present. Appropriate healthcare PPE was used in evaluating this patient. Problem List/Past Medical History Ongoing Acute UTI [...] Vitamin D deficiency Historical Accidental fall Agent Vinson ASTHMA Benzodiazepine withdrawal Bipolar disorder Callus of [...] HTN - Hypertension Hypertension Hypo-osmolality and or hyponatremia Hypokalemia Laryngitis Left hip pain multiple broken bones Neurogenic bladder Obesity Obesity due to excess calories Oral (more content not included)... Normal [facility] Comment on above: Result Comment: Elec tronically Signed By: VicMalick barbosa PA-C\.br\Date and Time Signed: 04/25/24 15:36 EST\.br\Electronically Co-Signed By: Didier Hooks M.D.\.br\Date and Time Co-Signed: 04/25/24 19:35 EST ED Patient Summaryon 024 ED Patient Summary ED Patient Summary [address] [address] Patient Discharge Instructions Person Information Name: MAEGAN DYE Age: 74 Years Arrival Date: 04/25/2024 13:58:05 Discharge Diagnosis: Dysuria Primary Care Physician: AZUL GORMAN CNP Provider Information Primary Provider: Didier Hooks M.D. Advanced [employer] Mill Set Up Operator Vertical:Malick Ho PA-C The exam and treatment you received in the Emergency Department were for an urgent problem and are not intended as complete care. It is important that you follow up with a doctor, nurse practitioner, or physician???s assistant executive housekeeper for ongoing care. If your symptoms become worse or you do not improve as expected and you are unable to reach your usual health care provider, you should return to the Emergency Department. We are available 24 hours a day. MAEGAN DYE has been given the following list of patient education materials, prescriptions and follow-up instructions: Follow-up Instructions: With: Address: When: AZUL GORMAN [address] [place] [id number] [facility] (1) In 3 days 04/28/2024 In the event that this physician does not participate in your insurance network, please consult with your insurance company to find a nearby participating provider. Patient Education Materials: Dysuria A MESSAGE TO ALL PATIENTS REGARDING OPIOIDS PRESCRIPTION OPIOIDS: WHAT YOU NEED TO KNOW Prescription opioids can be used to help relieve tbrzcqoc-ip-wzyxko pain and are often prescribed following a [...] as well, even when taken as directed: ??? Tolerance???meaning you might need to take more of the medication for the same pain relief ??? Physical dependence???meaning you have symptoms of withdrawal when a medication is stopped ??? Increased sensitivity to pain ??? Constipation ??? Nausea, vomiting, and dry mouth ??? Sleepiness and dizziness ??? Confusion ??? Depression ??? Low levels of testosterone that can result in lower sex drive, energy, and strength ??? Itching and sweating RISKS ARE GREATER WITH: ??? History of drug misuse, substance use disorder, or overdose ??? Mental health conditions (such as depression or anxiety) ??? Sleep apnea ??? Older age (65 years and older) ??? Avoid alcohol while taking prescription opioids. Also, unless specifically advised by your health care provider, medications to avoid include: ??? Benzodiazepines (such as Xanax or Valium) ??? Muscle relaxants (such as Soma or Flexeril) ??? Hypnotics (such as Ambien or Lunesta) ??? Other prescription opioids KNOW YOUR OPTIONS Talk to your health care provider about ways to manage your pain that don???t involve prescription opioids. Some of these options may actually work better and have fewer risks and side effects. Options may include: ??? Pain relievers such as acetaminophen, ibuprofen, and naproxen ??? Some medication that are also used for depression or seizures ??? Physical therapy and exercise ??? Cognitive behavioral therapy, a psychological, goal-directed approach, in which patients learn how to modify physical, behavioral, and emotional triggers of pain and stress. IF YOU ARE PRESCRIBED OPIOIDS FOR PAIN: ??? Never take opioids in greater amounts or more often than prescribed. ??? Follow up with your primary health care provider. o Work together to create a plan on how to manage your pain. o Talk about ways to help manage your pain that don???t involve prescription opioids. o Talk about any and all concerns and side effects. ??? Help prevent misuse and abuse o Never sell or share prescription opioids. o Never use another person???s prescription opioids. ??? Store prescription opioids in a secure place and out of reach of others (this may include visitors, children, friends, and family). ??? Safely dispose of unused prescription opioids: Find your community drug take-back program or your pharmacy mail-back program, or flush them down the toilet, following guidance from the Food and Drug Administration (www.fda.gov/Drugs/Resourc esForYou). ??? Visit www.cdc.gov/drugoverdose to learn about the risks of opioids abuse and overdose. ??? If you believe you may be struggling with addiction, tell your health health care aide and ask for guidance or (more content not included)... Normal [facility] C Urineon 04-23-2024 Bacteria identified Cx Nom (U) Microbiology PROCEDURE: Urine Culture [R1] SOURCE: U CleanCatch BODY SITE: COLLECTED DATE/TIME: 04/21/2024 14:02 EST RECEIVED DATE/TIME: 04/21/2024 14:52 EST START DATE/TIME: 04/21/2024 14:52 EST FREE TEXT SOURCE: Alvaro BYRD, Rodrigue Cruz. Alvaro BYRD, Rodrigue Cruz. FINAL REPORTS Final Report [] Verified Date/Time: 04/23/2024 08:25 EST >100,000 cfu/ml Klebsiella pneumoniae 1,000 cfu/ml Mixed skin contaminants SUSCEPTIBILITY RESULTS _ LEGEND: S=Susceptible, N/R=Not Reported, Blank=Data not available, or drug not advisable or tested, I=Intermediate, ESBL=Extended spectrum beta-lactamase, R=Resistant, TFG=Thymidine-dependent strain, ANAY=Beta-lactamase positive, REINALDO=mcg/m;(mg/L), S*=Predicted susceptible interp, R*=Predicted resistant interp Klepne Antibiotic REINALDO Dilutn REINALDO Interp Ampicillin >16 R Ampicillin/ >16/8 R Sulbactam Aztreonam <=4 S Cefazolin <=2 S Cefepime <=2 S Ceftazidime <=1 S Ceftazidime/ <=8 S Avibactam Ceftriaxone <=1 S Cefuroxime <=4 S Ciprofloxacin 1 R Ertapenem <=0.5 S Gentamicin <=2 S Levofloxacin <=0.5 S Meropenem <=1 S Nitrofurantoin <=32 S Piperacillin/ <=8 S Tazobactam Tetracycline >8 R Tobramycin <=2 S Trimethoprim/ <=2/38 S Sulfa Performing Locations R1: This test was performed at: [facility], [address] [place] [address], [id number]- , , [facility] Comment on above: Performed By: #### 2 [id number] #### [facility] [address] [place] [id number] ED Clinical Summaryon 2023 ED Clinical Summary ED Clinical Summary [address] [address] ED Clinical Summary Person Information Name: MAEGAN DYE/[facility] Age: 74 Years : 1950 Sex: Female Language: Dutch PCP: AZUL GORMAN CNP Marital Status: Visit Id: Visit Reason: Urinary retention; UNABLE TO URINATE Speciality: Acuity: 4 Enc Type: Emergency Med Service: Emergency Arrival: 04/21/2024 13:01:53 Discharge: 04/21/2024 15:03:45 LOS: 000 02:02 Checkin: 04/21/2024 13:01:53 Checkout: 04/21/2024 15:03:45 Dispo Type: Home (Routine DC) EVENTS: Event Name Event Status Request Date/Time Start Date/Time Complete Date/Time Arrive Complete 04/21/2024 13:01:53 04/21/2024 13:01:53 04/21/2024 13:01:53 Document Home Meds Request 04/21/2024 13:01:53 Triage Complete 04/21/2024 13:01:53 04/21/2024 13:16:11 04/21/2024 13:16:11 Bed Assign Complete 04/21/2024 13:04:03 04/21/2024 13:04:03 04/21/2024 13:04:03 Dr Exam Complete 04/21/2024 13:04:03 04/21/2024 13:07:44 04/21/2024 13:07:44 RN Exam Complete 04/21/2024 13:04:03 04/21/2024 13:17:10 04/21/2024 13:17:10 Registration Complete 04/21/2024 13:04:23 04/21/2024 13:04:23 04/21/2024 13:04:23 Reg Complete Request 04/21/2024 13:04:23 Reg Bed Request Complete 04/21/2024 13:04:23 04/21/2024 13:04:23 04/21/2024 13:04:23 Registration Complete 04/21/2024 13:07:44 04/21/2024 13:24:17 04/21/2024 13:24:17 Dr Exam Complete 04/21/2024 13:08:27 04/21/2024 13:08:27 04/21/2024 13:08:27 Isolation Screening Request 04/21/2024 13:16:11 Patient Care Complete 04/21/2024 13:18:08 04/21/2024 14:16:34 Pending Labs Complete 04/21/2024 13:18:08 04/21/2024 14:24:48 Pending Labs Inlab 04/21/2024 14:24:48 04/21/2024 14:24:48 Lab Inlab 04/21/2024 14:24:48 04/21/2024 14:24:48 Discharge Complete 04/21/2024 14:36:34 04/21/2024 15:03:50 04/21/2024 15:03:50 Transfer Complete 04/21/2024 15:03:50 04/21/2024 15:03:50 04/21/2024 15:03:50 ADDRESS: [facility] [address] [facility] [id number] PHYS DOC NOTES: MEDICAL INFORMATION: Prescriptions Given: New Medications [facility]/pharmacy #[id number], [address] [place], [place] [phone], [phone] ciprofloxacin (Cipro 250 mg Tab) 1 Tablets By Mouth every 12 hours for 7 Days. Refills: 0. Medications to Continue Taking That Have Changed [facility]/pharmacy #[id number], [address], [place] [phone], [phone] START: docusate (Colace 50 mg oral capsule) 1 Capsules By Mouth 2 times a day as needed for constipation for 10 Days. Refills: 0. START: senna (senna 8.6 mg Tab) 2 Tablets By Mouth once a day (at bedtime). Refills: 0. Other Medications START: docusate (Colace 100 mg Cap) 1 Capsules By Mouth 2 times a day. Hold for diarrhea. Refills: 0. START: senna (Senokot 8.6 mg Tab) 2 Tablets By Mouth once a day (at bedtime) as needed for constipation. Refills: 1. Medications to Continue with No Changes Other Medications acetaminophen-hydrocodone (Rock 325 mg-5 mg oral tablet) 1 Tablets By Mouth every 6 hours as needed for pain. Refills: 0. amlodipine (amLODIPine 5 mg Tab) 1 Tablets By Mouth every day. TAKE 1 TABLET BY MOUTH EVERY DAY. celecoxib (celecoxib 200 mg Cap) TAKE 1 CAPSULE BY MOUTH EVERY DAY. clonazepam (clonazepam 1 mg Tab) 1 Tablets By Mouth 3 times a day. TAKE 1 TABLET BY MOUTH THREE TIMES A DAY NEEDED FOR ANXIETY. Refills: 0. donepezil (donepezil 5 mg Tab) 1 Tablets By Mouth once a day (at bedtime). Ensure (Ensure Vanilla) Drink 1 bottle (8 fl. oz.) BID. Refills: 5. escitalopram (escitalopram 5 mg oral tablet) 1 Tablets By Mouth every day. loratadine (loratadine 10 mg oral capsule) 1 Capsules By Mouth every day. [facility] Prescription (Walker) Dispense one walker. Refills: 0. olanzapine (olanzapine 7.5 mg oral tablet) 1 Tablets By Mouth once a day (at bedtime). ondansetron (ondansetron 4 mg Dis Tab) 1 Tablets By Mouth every 6 hours as needed Nausea/Vomiting. Refills: 0. ondansetron (Zofran ODT 4 mg Tab-Dis) 1 Tablets By Mouth 3 times a day as needed Nausea. Refills: 1. pantoprazole (Pantoprazole [address] Tab) TAKE 1 TABLET BY MOUTH EVERY DAY. phenazopyridine (phenazopyridine 200 mg Tab) 1 Tablets By Mouth after meals. polyethylene glycol 3350 (Miralax 17 gram packet) 17 Gram By Mouth every day. potassium chloride (potassium chloride 10 mEq Cap-ER) 1 Capsules By Mouth every other day. Refills: 2. sodium chloride 2 gram By Mouth 3 times a day. sulfamethoxazole-trimethop rim (sulfamethoxazole-trimetho prim 400 mg-80 mg Tab) PATIENT EDUCATION INFORMATION: Instructions: Urinary Tract Infection, Adult Follow up: With: Address: When: [address] [address] [facility] (1) In 3 days 04/24/2024 Comments: Call Dr for diagnosis based follow up DIAGNOSIS: UTI (urinary tract infection) Normal [facility] ED Note-Physicianon 04-21-20 ED Note-Physician ED Note-Physician Basic Information Time Seen: Alvaro BYRD, Rodrigue Cruz. 04/21/2024 13:07 Chief Complaint patient presents with urinary retention since last night History of Present Illness A 74-year-old female reports emergency department with complaints of urinary retention. States has been going on for last night. Thinks he may have a UTI as well. Also would like medications for constipation. Denies any fevers or chills. She states does have a history of self cathing as well but does not do that anymore. She states that she absolutely does not want a Choi catheter placed. Review of Systems No other aggravating or relieving factors no other associated symptoms no other prior treatments or complaints. Family: Reviewed and noncontributory Social: lives at home Review of systems negative unless otherwise specified in the HPI. Physical Exam Vitals & Measurements T: 36.6 ???C(Oral) HR: 67(Peripheral) RR: 18 BP: 173/76 SpO2: 93% HT: 154 cm WT: 66 kg BMI: 27.83 General: The patient appears well and in no apparent distress. Patient is resting comfortably on bed. Afebrile Skin: Warm, dry, no pallor noted. Head: Normocephalic, atraumatic Neck: No JVD Eye: PERRLA, EOMI ENT: Moist mucus membranes Cardiovascular: Regular rate. normal peripheral perfusion Respiratory: No respiratory distress. no accessory muscle use. no obvious audible wheezing Chest Wall: no deformity Musculoskeletal: normal ROM, no deformity, no swelling GI: No obvious distention. No abdominal tenderness. No CVA tenderness bilaterally. Neurological: A&O. moves all extremities equal strength and symmetry Psychiatric: Cooperative and appropriate Medical Decision Making MEDICAL DECISION MAKING Number and Complexity of Problems Differential Diagnosis: [] [facility] Data External documents reviewed: [] My EKG interpretation: [] My CT interpretation: [] My X-ray interpretation: [] My Ultrasound interpretation: [] Decision rules/scores evaluated: [] Discussed with: [] Treatment and Disposition ED Course: 74-year-old female reports emergency department with concerns of UTI and urinary retention. Exam of the patient is rather benign. No acute findings. He reports has not been able to urinate since last night but does urinate to give us a urinary sample here. She states that she still feels like she is holding urine we did do a bladder scan that she did show just over 300 mL of urine. She did wish to go to the bathroom again, he did urinate more. She did drop down into the 240s 4 cc of urine in her bladder. No need for catheterization at this time. Patient also does not want a chronic Choi. Urinalysis did show likely UTI. Due to this, patient started on Cipro. Also given senna and Colace for constipation meds that she wants. Discussed return precautions. Follow-up with your primary care provider in 3 to 5 days. If symptoms worsen, do not improve, or new symptoms arise please report back to emergency department for further evaluation. The patient was understanding and agreeable to plan moving forward. Shared decision making: [] Code status: [] Assessment/Plan UTI (urinary tract infection) (N39.0: Urinary tract infection, site not specified) Orders: ciprofloxacin, 250 mg = 1 tab(s), Oral, q12hr, X 7 day(s), # 14 tab(s), Refills(s) 0, [id number], 154, cm, 04/21/24 13:16:00 EST, Height/Length Dosing, 66, kg, 04/21/24 13:16:00 EST, Weight Dosing docusate, 50 mg = 1 cap(s), Oral, BID, PRN for constipation, X 10 day(s), # 20 cap(s), Refills(s) 0, [id number], 154, cm, 04/21/24 13:16:00 EST, Height/Length Dosing, 66, kg, 04/21/24 13:16:00 EST, Weight Dosing senna, 17.2 mg = 2 tab(s), Oral, Once a day (at bedtime), # 20 tab(s), Refills(s) 0, [id number], 154, cm, 04/21/24 13:16:00 EST, Height/Length Dosing, 66, kg, 04/21/24 13:16:00 EST, Weight Dosing Bladder Scan UA with Cult Rflx Urine Culture Disposition Plan Patient Discharge Condition stable Discharge Disposition to home Discharge Prescription List Prescriptions Cipro 250 mg Tab, 250 mg= 1 tab(s), Oral, q12hr Colace 50 mg oral capsule, 50 mg= 1 cap(s), Oral, BID, PRN senna 8.6 mg Tab, 17.2 mg= 2 tab(s), Oral, Once a day (at bedtime) Follow-up With When Contact Information AZUL GORMAN In 3 days 04/24/2024 [place] [address]- Business (1) Additional Instructions: Call Dr for diagnosis based follow up Patient Education Urinary Tract Infection, Adult Attestation Patient seen and evaluated by the physician assistant executive housekeeper. Attending physician was present in the emergency department and supervised care. This visit was performed by both the physician and an APC. I performed all aspects of the MDM as documented. This report was transcribed using voice recognition software. Every effort was made to ensure accuracy, however, inadvertently computerized tra (more content not included)... Normal [facility] Comment on above: Result Comment: Elec tronically Signed By: Rodrigue John PA-C\.br\Date and Time Signed: 04/21/24 16:29 EST\.br\Electronically Co-Signed By: Johny Willson DO\.br\Date and Time Co-Signed: 04/21/24 17:04 EST ED Patient Summaryon 024 ED Patient Summary ED Patient Summary [address] [address] Patient Discharge Instructions Person Information Name: MAEGAN DYE Age: 74 Years Arrival Date: 04/21/2024 13:01:53 Discharge Diagnosis: UTI (urinary tract infection) Primary Care Physician: AZUL GORMAN CNP Provider Information Primary Provider: Johny Willson DO [employer] Set Up Operator Vertical:None The exam and treatment you received in the Emergency Department were for an urgent problem and are not intended as complete care. It is important that you follow up with a doctor, nurse practitioner, or physician???s assistant executive housekeeper for ongoing care. If your symptoms become worse or you do not improve as expected and you are unable to reach your usual health care provider, you should return to the Emergency Department. We are available 24 hours a day. MAEGAN DYE has been given the following list of patient education materials, prescriptions and follow-up instructions: Follow-up Instructions: With: Address: When: [address] [place] [address] [facility] (1) In 3 days 04/24/2024 Comments: Call Dr for diagnosis based follow up In the event that this physician does not participate in your insurance network, please consult with your insurance company to find a nearby participating provider. Patient Education Materials: Urinary Tract Infection, Adult A MESSAGE TO ALL PATIENTS REGARDING OPIOIDS PRESCRIPTION OPIOIDS: WHAT YOU NEED TO KNOW Prescription opioids can be used to help relieve ksyztqib-wn-qvqzga pain and are often prescribed following a [...] as well, even when taken as directed: ??? Tolerance???meaning you might need to take more of the medication for the same pain relief ??? Physical dependence???meaning you have symptoms of withdrawal when a medication is stopped ??? Increased sensitivity to pain ??? Constipation ??? Nausea, vomiting, and dry mouth ??? Sleepiness and dizziness ??? Confusion ??? Depression ??? Low levels of testosterone that can result in lower sex drive, energy, and strength ??? Itching and sweating RISKS ARE GREATER WITH: ??? History of drug misuse, substance use disorder, or overdose ??? Mental health conditions (such as depression or anxiety) ??? Sleep apnea ??? Older age (65 years and older) ??? Avoid alcohol while taking prescription opioids. Also, unless specifically advised by your health care provider, medications to avoid include: ??? Benzodiazepines (such as Xanax or Valium) ??? Muscle relaxants (such as Soma or Flexeril) ??? Hypnotics (such as Ambien or Lunesta) ??? Other prescription opioids KNOW YOUR OPTIONS Talk to your health care provider about ways to manage your pain that don???t involve prescription opioids. Some of these options may actually work better and have fewer risks and side effects. Options may include: ??? Pain relievers such as acetaminophen, ibuprofen, and naproxen ??? Some medication that are also used for depression or seizures ??? Physical therapy and exercise ??? Cognitive behavioral therapy, a psychological, goal-directed approach, in which patients learn how to modify physical, behavioral, and emotional triggers of pain and stress. IF YOU ARE PRESCRIBED OPIOIDS FOR PAIN: ??? Never take opioids in greater amounts or more often than prescribed. ??? Follow up with your primary health care provider. o Work together to create a plan on how to manage your pain. o Talk about ways to help manage your pain that don???t involve prescription opioids. o Talk about any and all concerns and side effects. ??? Help prevent misuse and abuse o Never sell or share prescription opioids. o Never use another person???s prescription opioids. ??? Store prescription opioids in a secure place and out of reach of others (this may include visitors, children, friends, and family). ??? Safely dispose of unused prescription opioids: Find your community drug take-back program or your pharmacy mail-back program, or flush them down the toilet, following guidance from the Food and Drug Administration (www.fda.gov/Drugs/Resourc esForYou). ??? Visit www.cdc.gov/drugoverdose to learn about the risks of opioids abuse and overdose. ??? If you believe you may be strugglin (more content not included)... Normal [facility] UA with Cult Rflxon 04-21-20 24 Bacteria Auto Ql (U) 1+ /HPF Abnormal Trace Fish er [facility] Comment on above: Performed By: #### 4 [id number] #### [facility] [address] [place] [address] Bilirubin Ql (U) Negative Normal Negative [facility] Comment on above: Performed By: #### 4 [id number] #### [facility] [address] [place] [address] Clarity (U) Turbid Abnormal Clear [facility] Comment on above: Performed By: #### 4 [id number] #### [facility] [address] [place] [address] Color (U) Light-Yellow Normal Yellow [facility] Comment on above: Result Comment: Micr oscopic readings are only performed on those samples that meet specific criteria set forth by [facility]. Performed By: #### 4 [id number] #### [facility] [address] [place] [address] Epithelial cells.squamous Auto (Urine sed) [#/Area] 3-4 Invalid Interpretation Code [facility] Comment on above: Performed By: #### 4 [id number] #### [facility] [address] [place] [address] Glucose Ql (U) Negative Normal Negative [facility] Comment on above: Performed By: #### 4 [id number] #### [facility] [address] [place] [address] Hemoglobin Auto test strip (U) [Mass/Vol] Trace Abnormal Negative [facility] Comment on above: Performed By: #### 4 [id number] #### [facility] [address] [place] [address] Ketones Auto test strip Ql (U) Negative Normal Negative [facility] Comment on above: Performed By: #### 4 [id number] #### [facility] [address] [place] [address] Leukocyte esterase Auto test strip Ql (U) 500 Gretchen/uL Abnormal Negative [facility] Comment on above: Performed By: #### 4 [id number] #### [facility] [address] [place] [address] Mucus Auto Ql (U) Negative Normal Negative [facility] Comment on above: Performed By: #### 4 [id number] #### [facility] [address] [place] [address] Nitrite Auto test strip Ql (U) 1+ mg/dL Abnormal Negative [facility] Comment on above: Performed By: #### 4 [id number] #### [facility] [address] [place] [address] pH (U) 7.0 [pH] Invalid Interpretation Code 5.0-9.0 [facility] Comment on above: Performed By: #### 4 [id number] #### [facility] [address] [place] [address] Protein Ql (U) Negative Normal Negative [facility] Comment on above: Performed By: #### 4 [id number] #### [facility] [address] [place] [address] RBC Ql (U) 0-3 Normal 0-3 [facility] Comment on above: Performed By: #### 4 [id number] #### [facility] [address] [place] [address] Specific gravity (U) [Rel density] 1.006 Invalid Interpretation Code 1.005-1.03 0 [facility] Comment on above: Performed By: #### 4 [id number] #### [facility] [address] [place] [address] Urobilinogen (U) [Mass/Vol] Negative Normal Negative [facility] Comment on above: Performed By: #### 4 [id number] #### [facility] [address] [place] [address] WBC Auto (Urine sed) [#/Area] >75 Abnormal 0-5 [facility] Comment on above: Performed By: #### 4 [id number] #### [facility] [address] [place] [address] Type of Urine collection method Clean Catch Normal [facility] Comment on above: Performed By: #### 4 [id number] #### [facility] [address] [place] [address] URINALYSISOrdered By: SYSTEM SYSTEM on 04-21-2024 Bacteria Auto Ql (U) 1+ /HPF Invalid Interpretation Code Trace/HPF [facility] UA Auto SS Bilirubin Ql (U) Negative Normal Negativemg /dL [facility] UA Auto SS Clarity (U) Turbid *ABN* (04/21/24 2:02 PM) Invalid Interpretation Code Clear [facility] UA Auto SS Color (U) Light-Yellow 1 (04/21/24 2:02 PM) Normal Yellow [facility] UA Auto SS Comment on above: Interpretive Data: M icroscopic readings are only performed on those samples that meet specific criteria set forth by [facility]. Epithelial cells.squamous Auto (Urine sed) [#/Area] 3-4 graded/HPF Invalid Interpretation Code [facility] UA Auto SS Glucose Ql (U) Negative Normal Negativemg /dL [facility] UA Auto SS Hemoglobin Auto test strip (U) [Mass/Vol] Trace mg/dL Invalid Interpretation Code Negativemg /dL [facility] UA Auto SS Ketones Auto test strip Ql (U) Negative Normal Negativemg /dL [facility] UA Auto SS Leukocyte esterase Auto test strip Ql (U) 500 Gretchen/uL Gretchen/uL Invalid Interpretation Code NegativeLe u/uL [facility] UA Auto SS Mucus Auto Ql (U) Negative Normal Negativegr aded/LPF [facility] UA Auto SS Nitrite Auto test strip Ql (U) 1+ mg/dL Invalid Interpretation Code Negativemg /dL [facility] UA Auto SS pH (U) 7.0 *NA* (04/21/24 2:02 PM) Invalid Interpretation Code 5.0 - 9.0 [facility] UA Auto SS Protein Ql (U) Negative Normal Negativemg /dL [facility] UA Auto SS RBC Ql (U) 0-3 graded/HPF Normal 0-3graded/ HPF [facility] UA Auto SS Specific gravity (U) [Rel density] 1.006 *NA* (04/21/24 2:02 PM) Invalid Interpretation Code 1.005 - 1.030 [facility] UA Auto SS Urobilinogen (U) [Mass/Vol] Negative Normal Negativemg /dL [facility] UA Auto SS WBC Auto (Urine sed) [#/Area] >75 graded/HPF Invalid Interpretation Code 0-5graded/ HPF [facility] UA Auto SS URINALYSISOrdered By: Rodrigue ferrara on 04-21-2024 UA Spec Desc Clean Catch (04/21/24 2:02 PM) Normal [facility] UA Auto SS Work Phone: ED Clinical Summaryon 2023 ED Clinical Summary ED Clinical Summary [place] [address] ED Clinical Summary Person Information Name: MAEGAN DYE/Sourav_Srikanth Age: 74 Years : 1950 Sex: Female Language: Dutch PCP: AZUL GORMAN CNP Marital Status: Visit Id: Visit Reason: Medical problem - minor; UNABLE TO HAVE BOWEL MOVEMENT OR URINATE Speciality: Acuity: 3 Enc Type: Emergency Med Service: Emergency Arrival: 04/19/2024 10:40:29 Discharge: 04/19/2024 13:45:17 LOS: 000 03:05 Checkin: 04/19/2024 10:40:29 Checkout: 04/19/2024 13:45:17 Dispo Type: Home (Routine DC) EVENTS: Event Name Event Status Request Date/Time Start Date/Time Complete Date/Time Arrive Complete 04/19/2024 10:40:29 04/19/2024 10:40:29 04/19/2024 10:40:29 Document Home Meds Request 04/19/2024 10:40:29 Triage Complete 04/19/2024 10:40:29 04/19/2024 11:02:21 04/19/2024 11:02:21 Isolation Screening Request 04/19/2024 11:02:22 Pending Labs Complete 04/19/2024 11:17:58 04/19/2024 11:29:04 Bed Assign Complete 04/19/2024 12:10:01 04/19/2024 12:10:01 04/19/2024 12:10:01 Dr Exam Complete 04/19/2024 12:10:01 04/19/2024 12:15:19 04/19/2024 12:15:19 RN Exam Complete 04/19/2024 12:10:01 04/19/2024 12:17:01 04/19/2024 12:17:01 Registration Complete 04/19/2024 12:15:19 04/19/2024 12:24:22 04/19/2024 12:24:22 Dr Exam Complete 04/19/2024 12:17:02 04/19/2024 12:17:02 04/19/2024 12:17:02 Reg Complete Request 04/19/2024 12:24:22 Reg Bed Request Complete 04/19/2024 12:24:22 04/19/2024 12:24:22 04/19/2024 12:24:22 Discharge Complete 04/19/2024 13:27:51 04/19/2024 13:45:23 04/19/2024 13:45:23 Transfer Complete 04/19/2024 13:45:23 04/19/2024 13:45:23 04/19/2024 13:45:23 ADDRESS: [address] [place] [id number] PHYS DOC NOTES: MEDICAL INFORMATION: Prescriptions Given: Medications to Continue with No Changes Other Medications acetaminophen-hydrocodone (Rock 325 mg-5 mg oral tablet) 1 Tablets By Mouth every 6 hours as needed for pain. Refills: 0. amlodipine (amLODIPine 5 mg Tab) 1 Tablets By Mouth every day. TAKE 1 TABLET BY MOUTH EVERY DAY. celecoxib (celecoxib 200 mg Cap) TAKE 1 CAPSULE BY MOUTH EVERY DAY. clonazepam (clonazepam 1 mg Tab) 1 Tablets By Mouth 3 times a day. TAKE 1 TABLET BY MOUTH THREE TIMES A DAY NEEDED FOR ANXIETY. Refills: 0. docusate (Colace 100 mg Cap) 1 Capsules By Mouth 2 times a day. Hold for diarrhea. Refills: 0. donepezil (donepezil 5 mg Tab) 1 Tablets By Mouth once a day (at bedtime). Ensure (Ensure Vanilla) Drink 1 bottle (8 fl. oz.) BID. Refills: 5. escitalopram (escitalopram 5 mg oral tablet) 1 Tablets By Mouth every day. fluticasone nasal (fluticasone 0.05 mg/inh Nasal [place]) 2 Sprays Nasal Inhalation every day. each nostril. Refills: 5. loratadine (loratadine 10 mg oral capsule) 1 Capsules By Mouth every day. [facility] Prescription (Walker) Dispense one walker. Refills: 0. olanzapine (olanzapine 7.5 mg oral tablet) 1 Tablets By Mouth once a day (at bedtime). ondansetron (ondansetron 4 mg Dis Tab) 1 Tablets By Mouth every 6 hours as needed Nausea/Vomiting. Refills: 0. ondansetron (Zofran ODT 4 mg Tab-Dis) 1 Tablets By Mouth 3 times a day as needed Nausea. Refills: 1. pantoprazole (Pantoprazole [address] Tab) TAKE 1 TABLET BY MOUTH EVERY DAY. phenazopyridine (phenazopyridine 200 mg Tab) 1 Tablets By Mouth after meals. polyethylene glycol 3350 (Miralax 17 gram packet) 17 Gram By Mouth every day. potassium chloride (potassium chloride 10 mEq Cap-ER) 1 Capsules By Mouth every other day. Refills: 2. senna (Senokot 8.6 mg Tab) 2 Tablets By Mouth once a day (at bedtime) as needed for constipation. Refills: 1. sodium chloride 2 gram By Mouth 3 times a day. sulfamethoxazole-trimethop rim (sulfamethoxazole-trimetho prim 400 mg-80 mg Tab) trazodone (traZODONE 150 mg Tab) 1 Tablets By Mouth once a day (at bedtime). Do not give with clonazepam. Refills: 3. PATIENT EDUCATION INFORMATION: Instructions: Constipation, Adult Follow up: With: Address: When: AZUL LOVEAULT [address] [place] [phone] Business (1) In 3 days DIAGNOSIS: Constipation Normal [facility] ED Note-Physicianon 04-19-20 ED Note-Physician ED Note-Physician Basic Information Time Seen: Didier Hooks M.D. 04/19/2024 12:15 Chief Complaint pt states she hasnt been able to urinate or have bowel movement. bowel movement hasnt been in 5 days. been at ed twice since then and no complaint of that those days. Pt claims she hasnt urinated in over 48 hrs but patient was here friday and urinated History of Present Illness 74-year-old female comes to the ED for evaluation of dysuria and constipation. She has a history of chronic urinary retention and dysuria. Because of her urinary issues she also has chronic constipation. She states for the last few days she has had no bowel movements and has had some difficulty of urination. However, while in triage she did have a large bowel movement, gave a urine sample, and now states she feels much better and has no further complaints. She has no abdominal pain. No fevers. No nausea or vomiting. Review of Systems A 10 point review of systems is negative except as noted above. Medical and Surgical History: Reviewed and noted Social history: Lives at home Tobacco: Denies Physical Exam Vitals & Measurements T: 36.7 ???C(Oral) HR: 66(Peripheral) RR: 18 BP: 121/69 SpO2: 93% HT: 154 cm WT: 66 kg BMI: 27.83 Nurses notes and vital signs reviewed and patient is not hypoxic. General: The patient appears well, resting comfortably. Skin: Warm, dry. Head: Atraumatic. Neck: No JVD. Eye: Normal conjunctiva. Ears, Nose, Mouth, and Throat: Moist mucous membranes. Cardiovascular: Strong distal pulses. Chest wall: Respiratory: Respirations are nonlabored. Back: Normal range of motion. Musculoskeletal: Normal ROM with no gross deformity. Gastrointestinal: Urological: Neurological: Awake and alert. No focal deficits. Follows commands. Psychiatric: Cooperative. Medical Decision Making Patient presents with dysuria and constipation. She did give a urine sample here without any difficulty. She also had a large bowel movement without any difficulty. Her urinalysis is no acute findings. She is discharged home with PCP follow-up. Patient was encouraged to return to the ED if symptoms worsen or change. Assessment/Plan Constipation (K59.00: Constipation, unspecified) Disposition Plan Patient Discharge Condition Disposition: Discharged home Condition: Improved and stable Counseled: Patient and/or family were counseled to workup, results, treatment plan and follow-up recommendations Discharge Prescription List Prescriptions No active prescription medications Follow-up With When Contact Information AZUL GORMAN In 3 days [address] [place] [id number] [facility] (1) Additional Instructions: Patient Education Constipation, Adult Attestation I performed a substantive part of the MDM during the patient???s E/M visit. I personally made or approved the documented management plan and acknowledge its risk of complications. (Independent Interpretation) My (EKG/X-Ray/US/CT) interpretation as above. (Discussion) Management/test interpretation discussed with APC. This report was transcribed using voice recognition software. Every effort was made to ensure accuracy, however, inadvertently computerized senior licensing manager mistakes may be present. Appropriate healthcare PPE was used in evaluating this patient. Problem List/Past Medical History Ongoing Acute UTI [...] Vitamin D deficiency Historical Accidental fall Agent [place] ASTHMA Benzodiazepine withdrawal Bipolar disorder Callus of [...] HTN - Hypertension Hypertension Hypo-osmolality and or hyponatremia Hypokalemia Laryngitis Left hip pain multiple broken bones Neurogenic bladder Obesity Obesity due to excess calories Oral thrush Panic disorder with agoraphobia Physical deconditioning (more content not included)... Normal [facility] Comment on above: Result Comment: Elec tronically Signed By: Malick Ho PA-C\.br\Date and Time Signed: 04/19/24 18:20 EST\.br\Electronically Co-Signed By: Didier Hooks M.D.\.br\Date and Time Co-Signed: 04/19/24 18:24 EST ED Patient Summaryon 024 ED Patient Summary ED Patient Summary [place] [id number] Patient Discharge Instructions Person Information Name: MAEGAN DYE Age: 74 Years Arrival Date: 04/19/2024 10:40:29 Discharge Diagnosis: Constipation Primary Care Physician: AZUL GORMAN CNP Provider Information Primary Provider: Didier Hooks M.D. [employer] Set Up Operator Vertical:Malick Ho PA-C The exam and treatment you received in the Emergency Department were for an urgent problem and are not intended as complete care. It is important that you follow up with a doctor, nurse practitioner, or physician???s assistant executive housekeeper for ongoing care. If your symptoms become worse or you do not improve as expected and you are unable to reach your usual health care provider, you should return to the Emergency Department. We are available 24 hours a day. MAEGAN DYE has been given the following list of patient education materials, prescriptions and follow-up instructions: Follow-up Instructions: With: Address: When: [place] [address] Business (1) In 3 days In the event that this physician does not participate in your insurance network, please consult with your insurance company to find a nearby participating provider. Patient Education Materials: Constipation, Adult A MESSAGE TO ALL PATIENTS REGARDING OPIOIDS PRESCRIPTION OPIOIDS: WHAT YOU NEED TO KNOW Prescription opioids can be used to help relieve bexasejn-xa-rbizgh pain and are often prescribed following a [...] as well, even when taken as directed: ??? Tolerance???meaning you might need to take more of the medication for the same pain relief ??? Physical dependence???meaning you have symptoms of withdrawal when a medication is stopped ??? Increased sensitivity to pain ??? Constipation ??? Nausea, vomiting, and dry mouth ??? Sleepiness and dizziness ??? Confusion ??? Depression ??? Low levels of testosterone that can result in lower sex drive, energy, and strength ??? Itching and sweating RISKS ARE GREATER WITH: ??? History of drug misuse, substance use disorder, or overdose ??? Mental health conditions (such as depression or anxiety) ??? Sleep apnea ??? Older age (65 years and older) ??? Avoid alcohol while taking prescription opioids. Also, unless specifically advised by your health care provider, medications to avoid include: ??? Benzodiazepines (such as Xanax or Valium) ??? Muscle relaxants (such as Soma or Flexeril) ??? Hypnotics (such as Ambien or Lunesta) ??? Other prescription opioids KNOW YOUR OPTIONS Talk to your health care provider about ways to manage your pain that don???t involve prescription opioids. Some of these options may actually work better and have fewer risks and side effects. Options may include: ??? Pain relievers such as acetaminophen, ibuprofen, and naproxen ??? Some medication that are also used for depression or seizures ??? Physical therapy and exercise ??? Cognitive behavioral therapy, a psychological, goal-directed approach, in which patients learn how to modify physical, behavioral, and emotional triggers of pain and stress. IF YOU ARE PRESCRIBED OPIOIDS FOR PAIN: ??? Never take opioids in greater amounts or more often than prescribed. ??? Follow up with your primary health care provider. o Work together to create a plan on how to manage your pain. o Talk about ways to help manage your pain that don???t involve prescription opioids. o Talk about any and all concerns and side effects. ??? Help prevent misuse and abuse o Never sell or share prescription opioids. o Never use another person???s prescription opioids. ??? Store prescription opioids in a secure place and out of reach of others (this may include visitors, children, friends, and family). ??? Safely dispose of unused prescription opioids: Find your community drug take-back program or your pharmacy mail-back program, or flush them down the toilet, following guidance from the Food and Drug Administration (www.fda.gov/Drugs/Resourc esForYou). ??? Visit www.cdc.gov/drugoverdose to learn about the risks of opioids abuse and overdose. ??? If you believe you may be struggling with addiction, tell your health health care aide and ask for guid (more content not included)... Normal [facility] UA with Cult Rflxon 04-19-20 Bilirubin Ql (U) Negative Normal Negative [facility] Comment on above: Performed By: #### 4 [id number] #### [facility] [address] [place] [address] Clarity (U) Clear Normal Clear [facility] Comment on above: Performed By: #### 4 [id number] #### [facility] [address] [place] [address] Color (U) Light-Yellow Normal Yellow [facility] Comment on above: Result Comment: Micr oscopic readings are only performed on those samples that meet specific criteria set forth by [facility]. Performed By: #### 4 [id number] #### [facility] [address] [place] [address] Glucose Ql (U) Negative Normal Negative [facility] Comment on above: Performed By: #### 4 [id number] #### [facility] [address] [place] [address] Hemoglobin Auto test strip (U) [Mass/Vol] Negative Normal Negative [facility] Comment on above: Performed By: #### 4 [id number] #### [facility] [address] [place] [address] Ketones Auto test strip Ql (U) Negative Normal Negative [facility] Comment on above: Performed By: #### 4 [id number] #### [facility] [address] [place] [address] Leukocyte esterase Auto test strip Ql (U) Negative Normal Negative [facility] Comment on above: Performed By: #### 4 [id number] #### [facility] [address] [place] [address] Nitrite Auto test strip Ql (U) Negative Normal Negative [facility] Comment on above: Performed By: #### 4 [id number] #### [facility] [address] [place] [address] pH (U) 6.0 [pH] Invalid Interpretation Code 5.0-9.0 [facility] Comment on above: Performed By: #### 4 [id number] #### [facility] [address] [place] [address] Protein Ql (U) Negative Normal Negative [facility] Comment on above: Performed By: #### 4 [id number] #### [facility] [address] [place] [address] Specific gravity (U) [Rel density] 1.010 Invalid Interpretation Code 1.005-1.03 0 [facility] Comment on above: Performed By: #### 4 [id number] #### [facility] [address] [place] [address] Urobilinogen (U) [Mass/Vol] Negative Normal Negative [facility] Comment on above: Performed By: #### 4 [id number] #### [facility] [address] [place] [address] Type of Urine collection method Clean Catch Normal [facility] Comment on above: Performed By: #### 4 [id number] #### [facility] [address] [place] [address] URINALYSISOrdered By: SYSTEM SYSTEM on 04-19-2024 Bilirubin Ql (U) Negative Normal Negativemg /dL [facility] UA Auto SS Clarity (U) Clear (04/19/24 11:20 AM) Normal Clear [facility] UA Auto SS Color (U) Light-Yellow 1 (04/19/24 11:20 AM) Normal Yellow [facility] UA Auto SS Comment on above: Interpretive Data: M icroscopic readings are only performed on those samples that meet specific criteria set forth by [facility]. Glucose Ql (U) Negative Normal Negativemg /dL [facility] UA Auto SS Hemoglobin Auto test strip (U) [Mass/Vol] Negative Normal Negativemg /dL [facility] UA Auto SS Ketones Auto test strip Ql (U) Negative Normal Negativemg /dL [facility] UA Auto SS Leukocyte esterase Auto test strip Ql (U) Negative Normal NegativeLe u/uL [facility] UA Auto SS Nitrite Auto test strip Ql (U) Negative Normal Negativemg /dL [facility] UA Auto SS pH (U) 6.0 *NA* (04/19/24 11:20 AM) Invalid Interpretation Code 5.0 - 9.0 [facility] UA Auto SS Protein Ql (U) Negative Normal Negativemg /dL [facility] UA Auto SS Specific gravity (U) [Rel density] 1.010 *NA* (04/19/24 11:20 AM) Invalid Interpretation Code 1.005 - 1.030 [facility] UA Auto SS Urobilinogen (U) [Mass/Vol] Negative Normal Negativemg /dL [facility] UA Auto SS URINALYSISOrdered By: Errol Estevez on 04-19-2024 UA Spec Desc Clean Catch (04/19/24 11:20 AM) Normal [facility] UA Auto SS CBC w/ Auto Diffon 4 Basophils/100 WBC (Bld) 0.2 % Normal 0.0-2.0 [facility] Comment on above: Performed By: #### 2 [id number] #### [facility] [address] [place] [address] Basophils/Leukocytes Auto (Bld) [Pure # fraction] 0.0 E9/L Normal 0.0-0.2 [facility] Comment on above: Performed By: #### 2 [id number] #### [facility] [address] [place] [address] Eosinophils (Bld) [#/Vol] 0.2 E9/L Normal 0.0-0.5 [facility] Comment on above: Performed By: #### 2 [id number] #### [facility] [address] [place] [address] Eosinophils/100 WBC (Bld) 2.9 % Normal 0.0-8.0 [facility] Comment on above: Performed By: #### 2 [id number] #### [facility] [address] [place] [address] Erythrocyte distribution width (RBC) [Ratio] 13.8 % Normal 10.9-14.2 [facility] Comment on above: Performed By: #### 2 [id number] #### [facility] [address] [place] [address] Hematocrit (Bld) [Volume fraction] 38.9 % Normal 34.0-46.0 [facility] Comment on above: Performed By: #### 2 [id number] #### [facility] [address] [place] [address] Hemoglobin (Bld) [Mass/Vol] 12.8 g/dL Normal 12.0-16.0 [facility] Comment on above: Performed By: #### 2 [id number] #### [facility] [address] [place] [address] Lymphocytes (Bld) [#/Vol] 1.0 E9/L Normal 1.0-4.0 [facility] Comment on above: Performed By: #### 2 [id number] #### [facility] [address] [place] [address] Lymphocytes/100 WBC (Bld) 16.4 % Normal 14.0-50.0 [facility] Comment on above: Performed By: #### 2 [id number] #### [facility] [address] [place] [address] MCH (RBC) [Entitic mass] 29.1 pg Normal 27.0-34.0 [facility] Comment on above: Performed By: #### 2 [id number] #### [facility] [address] [place] [address] MCHC (RBC) [Mass/Vol] 33.0 g/dL Normal 31.4-36.0 [facility] Comment on above: Performed By: #### 2 [id number] #### [facility] [address] [place] [address] MCV (RBC) [Entitic vol] 88.2 fL Normal 80.0-100.0 [facility] Comment on above: Performed By: #### 2 [id number] #### [facility] [address] [place] [address] Monocytes (Bld) [#/Vol] 0.5 E9/L Normal 0.2-1.0 [facility] Comment on above: Performed By: #### 2 [id number] #### [facility] [address] [place] [address] Neutrophils (Bld) [#/Vol] 4.5 E9/L Normal 2.0-7.5 [facility] Comment on above: Performed By: #### 2 [id number] #### [facility] [address] [place] [address] Neutrophils/100 WBC (Bld) 72.0 % Normal 36.0-75.0 [facility] Comment on above: Performed By: #### 2 [id number] #### [facility] [address] [place] [address] Platelet mean volume (Bld) [Entitic vol] 7.4 fL Normal 6.4-10.8 [facility] Comment on above: Performed By: #### 2 [id number] #### [facility] [address] [place] [address] Platelets (Bld) [#/Vol] 243.0 E9/L Normal 150.0-500. 0 [facility] Comment on above: Performed By: #### 2 [id number] #### [facility] [address] [place] [address] RBC (Bld) [#/Vol] 4.4 E12/L Normal 4.3-5.9 [facility] Comment on above: Performed By: #### 2 [id number] #### [facility] [address] [place] [address] WBC corrected for nucl RBC Auto (Bld) [#/Vol] 6.3 E9/L Normal 4.0-11.0 [facility] Comment on above: Performed By: #### 2 [id number] #### [facility] [address] [place] [address] CHEMISTRYOrdered By: SYSTEM SYSTEM on 04-17-2024 Albumin [Mass/Vol] 4.0 g/dL Normal 3.3 - 5.0 gm/dL Rem[facility] Albumin/Globulin [Mass ratio] 1.4 {ratio} Normal 1.1 - 2.2 [facility] ALP [Catalytic activity/Vol] 83 [iU]/d Normal 21 - 98 Int._Unit/ L [facility] ALT No additional P-5'-P [Catalytic activity/Vol] 10 [iU]/d Normal 6 - 46 Int._Unit/ L [facility] Anion gap [Moles/Vol] 8 mmol/L Normal 6 - 16 mEq/L [facility] AST [Catalytic activity/Vol] 23 [iU]/d Normal 5 - 43 Int._Unit/ L [facility] Bilirubin [Mass/Vol] 0.6 mg/dL Normal 0.0 - 1 .1 mg/dL [facility] Calcium [Mass/Vol] 8.9 mg/dL Normal 8.9 - 11. 1 mg/dL [facility] Chloride [Moles/Vol] 102 mmol/L Normal 101 - 1 11 mmol/L [facility] CO2 [Moles/Vol] 31 mmol/L Normal 21 - 31 mmol/L [facility] Creatinine [Mass/Vol] 0.9 mg/dL Normal 0.5 - 1.3 mg/dL [facility] eGFR 66 mL/min/1.73 m2 Normal >=59mL/min /1.73 m2 [facility] Ethanol Lvl mg/dL Normal <=11mg/dL [facility] Globulin (S) [Mass/Vol] 2.8 g/dL Normal 1.4 - 4.0 gm/dL [facility] Glucose [Mass/Vol] 127 mg/dL Normal 55 - 199 mg/dL [facility] Potassium [Moles/Vol] 3.3 mmol/L Low 3.5 - 5.3 mmol/L [facility] Protein [Mass/Vol] 6.8 g/dL Normal 6.0 - 7.8 gm/dL [facility] Sodium [Moles/Vol] 138 mmol/L Normal 135 - 145 mmol/L [facility] Urea nitrogen [Mass/Vol] 9 mg/dL Normal 5 - 21 mg/dL [facility] Urea nitrogen/Creatinine [Mass ratio] 10 mg/mg Normal 10 - 20 [facility] CMPon 04-17-2024 Albumin [Mass/Vol] 4.0 g/dL Normal 3.3-5.0 [facility] Comment on above: Performed By: #### 2 [id number] #### [facility] [address] [place] [address] Albumin/Globulin (S) [Mass conc ratio] 1.4 Normal 1.1-2.2 [facility] Comment on above: Performed By: #### 2 [id number] #### [facility] [address] [place] [address] ALP [Catalytic activity/Vol] 83 Int._Unit/L Normal 21-98 [facility] Comment on above: Performed By: #### 2 [id number] #### [facility] [address] [place] [address] ALT No additional P-5'-P [Catalytic activity/Vol] 10 Int._Unit/L Normal 6-46 [facility] Comment on above: Performed By: #### 2 [id number] #### [facility] [address] [place] [address] Anion gap [Moles/Vol] 8 mmol/L Normal 6-16 [facility] Comment on above: Performed By: #### 2 [id number] #### [facility] [address] [place] [address] AST [Catalytic activity/Vol] 23 Int._Unit/L Normal 5-43 [facility] Comment on above: Performed By: #### 2 [id number] #### [facility] [address] [place] [address] Bilirubin [Mass/Vol] 0.6 mg/dL Normal 0.0-1.1 [facility] Comment on above: Performed By: #### 2 [id number] #### [facility] [address] [place] [address] Calcium [Mass/Vol] 8.9 mg/dL Normal 8.9-11.1 [facility] Comment on above: Performed By: #### 2 [id number] #### [facility] [address] [place] [address] Chloride [Moles/Vol] 102 mmol/L Normal 101-111 [facility] Comment on above: Performed By: #### 2 [id number] #### [facility] [address] [place] [address] CO2 [Moles/Vol] 31 mmol/L Normal 21-31 [facility] Comment on above: Performed By: #### 2 [id number] #### [facility] [address] [place] [address] Creatinine [Mass/Vol] 0.9 mg/dL Normal 0.5-1.3 [facility] Comment on above: Performed By: #### 2 [id number] #### [facility] [address] [place] [address] Globulin (S) [Mass/Vol] 2.8 g/dL Normal 1.4-4.0 [facility] Comment on above: Performed By: #### 2 [id number] #### [facility] [address] [place] [address] Glucose [Mass/Vol] 127 mg/dL Normal 55-199 [facility] Comment on above: Performed By: #### 2 [id number] #### [facility] [address] [place] [address] Potassium [Moles/Vol] 3.3 mmol/L Low 3.5-5.3 [facility] Comment on above: Performed By: #### 2 [id number] #### [facility] [address] [place] [address] Protein [Mass/Vol] 6.8 g/dL Normal 6.0-7.8 [facility] Comment on above: Performed By: #### 2 [id number] #### [facility] [address] [place] [address] Sodium [Moles/Vol] 138 mmol/L Normal 135-145 [facility] Comment on above: Performed By: #### 2 [id number] #### [facility] [address] [place] [address] Urea nitrogen [Mass/Vol] 9 mg/dL Normal 5-21 [facility] Comment on above: Performed By: #### 2 [id number] #### [facility] [address] [place] [address] Urea nitrogen/Creatinine [Mass ratio] 10 No Units Normal 10-20 [facility] Comment on above: Performed By: #### 2 [id number] #### [facility] [address] [place] [address] ED Clinical Summaryon 2023 ED Clinical Summary ED Clinical Summary [address] [address] ED Clinical Summary Person Information Name: MAEGAN DYE/[facility] Age: 74 Years : 1950 Sex: Female Language: Dutch PCP: AZUL GORMAN CNP Marital Status: Visit Id: Visit Reason: Suicidal ideation; Psychiatric problem; psych Speciality: Acuity: 2 Enc Type: Emergency Med Service: Emergency Arrival: 04/17/2024 15:55:51 Discharge: 04/17/2024 17:42:55 LOS: 000 01:47 Checkin: 04/17/2024 15:55:51 Checkout: 04/17/2024 17:42:55 Dispo Type: Home (Routine DC) EVENTS: Event Name Event Status Request Date/Time Start Date/Time Complete Date/Time Arrive Complete 04/17/2024 15:55:51 04/17/2024 15:55:51 04/17/2024 15:55:51 Document Home Meds Request 04/17/2024 15:55:51 Triage Complete 04/17/2024 15:55:51 04/17/2024 16:01:46 04/17/2024 16:01:46 Bed Assign Complete 04/17/2024 15:56:24 04/17/2024 15:56:24 04/17/2024 15:56:24 Dr Exam Complete 04/17/2024 15:56:24 04/17/2024 15:56:28 04/17/2024 15:56:28 RN Exam Complete 04/17/2024 15:56:24 04/17/2024 16:08:34 04/17/2024 16:08:34 Registration Complete 04/17/2024 15:56:28 04/17/2024 15:59:06 04/17/2024 15:59:06 Consult Request 04/17/2024 15:57:33 EKG Cancel 04/17/2024 15:57:33 04/17/2024 17:34:06 Pending Labs Request 04/17/2024 15:57:33 Lab Request 04/17/2024 15:57:33 Urine Collect Request 04/17/2024 15:57:33 Patient Care Request 04/17/2024 15:57:33 Reg Complete Request 04/17/2024 15:59:06 Reg Bed Request Complete 04/17/2024 15:59:06 04/17/2024 15:59:06 04/17/2024 15:59:06 Isolation Screening Request 04/17/2024 16:01:47 Pending Labs Complete 04/17/2024 16:15:24 04/17/2024 16:15:24 04/17/2024 16:40:28 Lab Complete 04/17/2024 16:15:24 04/17/2024 16:15:24 04/17/2024 16:40:28 Pending Labs Complete 04/17/2024 16:19:14 04/17/2024 16:19:14 04/17/2024 16:19:14 Discharge Complete 04/17/2024 17:33:51 04/17/2024 17:43:02 04/17/2024 17:43:02 Transfer Complete 04/17/2024 17:43:02 04/17/2024 17:43:02 04/17/2024 17:43:02 ADDRESS: [facility] [address] [facility] [id number] PHYS DOC NOTES: MEDICAL INFORMATION: Prescriptions Given: Medications to Continue with No Changes Other Medications acetaminophen-hydrocodone (Rock 325 mg-5 mg oral tablet) 1 Tablets By Mouth every 6 hours as needed for pain. Refills: 0. amlodipine (amLODIPine 5 mg Tab) 1 Tablets By Mouth every day. TAKE 1 TABLET BY MOUTH EVERY DAY. amoxicillin (amoxicillin 500 mg Cap) 1 Capsules By Mouth 3 times a day for 7 Days. Refills: 0. celecoxib (celecoxib 200 mg Cap) TAKE 1 CAPSULE BY MOUTH EVERY DAY. clonazepam (clonazepam 1 mg Tab) 1 Tablets By Mouth 3 times a day. TAKE 1 TABLET BY MOUTH THREE TIMES A DAY NEEDED FOR ANXIETY. Refills: 0. docusate (Colace 100 mg Cap) 1 Capsules By Mouth 2 times a day. Hold for diarrhea. Refills: 0. donepezil (donepezil 5 mg Tab) 1 Tablets By Mouth once a day (at bedtime). Ensure (Ensure Vanilla) Drink 1 bottle (8 fl. oz.) BID. Refills: 5. escitalopram (escitalopram 5 mg oral tablet) 1 Tablets By Mouth every day. fluticasone nasal (fluticasone 0.05 mg/inh Nasal [place]) 2 Sprays Nasal Inhalation every day. each nostril. Refills: 5. loratadine (loratadine 10 mg oral capsule) 1 Capsules By Mouth every day. [facility] Prescription (Walker) Dispense one walker. Refills: 0. olanzapine (olanzapine 7.5 mg oral tablet) 1 Tablets By Mouth once a day (at bedtime). ondansetron (ondansetron 4 mg Dis Tab) 1 Tablets By Mouth every 6 hours as needed Nausea/Vomiting. Refills: 0. ondansetron (Zofran ODT 4 mg Tab-Dis) 1 Tablets By Mouth 3 times a day as needed Nausea. Refills: 1. pantoprazole (Pantoprazole [address] Tab) TAKE 1 TABLET BY MOUTH EVERY DAY. phenazopyridine (phenazopyridine 200 mg Tab) 1 Tablets By Mouth after meals. polyethylene glycol 3350 (Miralax 17 gram packet) 17 Gram By Mouth every day. potassium chloride (potassium chloride 10 mEq Cap-ER) 1 Capsules By Mouth every other day. Refills: 2. senna (Senokot 8.6 mg Tab) 2 Tablets By Mouth once a day (at bedtime) as needed for constipation. Refills: 1. sodium chloride 2 gram By Mouth 3 times a day. sulfamethoxazole-trimethop rim (sulfamethoxazole-trimetho prim 400 mg-80 mg Tab) trazodone (traZODONE 150 mg Tab) 1 Tablets By Mouth once a day (at bedtime). Do not give with clonazepam. Refills: 3. PATIENT EDUCATION INFORMATION: Instructions: Suicidal Feelings: How to Help Yourself Follow up: With: Address: When: [facility] In 3 days 04/20/2024 With: Address: When: AZUL GORMAN [address] [place] [address] [facility] () In 3 days 04/20/2024 Comments: Call Dr for diagnosis based follow up DIAGNOSIS: Suicidal ideation Normal [facility] ED Patient Summaryon ED Patient Summary ED Patient Summary [address] [address] Patient Discharge Instructions Person Information Name: MAEGAN DYE Age: 74 Years Arrival Date: 04/17/2024 15:55:51 Discharge Diagnosis: Suicidal ideation Primary Care Physician: AZUL GORMAN CNP Provider Information Primary Provider: [employer] Vertical:None The exam and treatment you received in the Emergency Department were for an urgent problem and are not intended as complete care. It is important that you follow up with a doctor, nurse practitioner, or physician???s assistant executive housekeeper for ongoing care. If your symptoms become worse or you do not improve as expected and you are unable to reach your usual health care provider, you should return to the Emergency Department. We are available 24 hours a day. MAEGAN DYE has been given the following list of patient education materials, prescriptions and follow-up instructions: Follow-up Instructions: With: Address: When: [facility] In 3 days 04/20/2024 With: Address: When: AZUL GORMAN [facility] [place] [address] [facility] (4) In 3 days 04/20/2024 Comments: Call Dr for diagnosis based follow up In the event that this physician does not participate in your insurance network, please consult with your insurance company to find a nearby participating provider. Patient Education Materials: Suicidal Feelings: How to Help Yourself A MESSAGE TO ALL PATIENTS REGARDING OPIOIDS PRESCRIPTION OPIOIDS: WHAT YOU NEED TO KNOW Prescription opioids can be used to help relieve [id number] pain and are often prescribed following a [...] as well, even when taken as directed: ??? Tolerance???meaning you might need to take more of the medication for the same pain relief ??? Physical dependence???meaning you have symptoms of withdrawal when a medication is stopped ??? Increased sensitivity to pain ??? Constipation ??? Nausea, vomiting, and dry mouth ??? Sleepiness and dizziness ??? Confusion ??? Depression ??? Low levels of testosterone that can result in lower sex drive, energy, and strength ??? Itching and sweating RISKS ARE GREATER WITH: ??? History of drug misuse, substance use disorder, or overdose ??? Mental health conditions (such as depression or anxiety) ??? Sleep apnea ??? Older age (65 years and older) ??? Avoid alcohol while taking prescription opioids. Also, unless specifically advised by your health care provider, medications to avoid include: ??? Benzodiazepines (such as Xanax or Valium) ??? Muscle relaxants (such as Soma or Flexeril) ??? Hypnotics (such as Ambien or Lunesta) ??? Other prescription opioids KNOW YOUR OPTIONS Talk to your health care provider about ways to manage your pain that don???t involve prescription opioids. Some of these options may actually work better and have fewer risks and side effects. Options may include: ??? Pain relievers such as acetaminophen, ibuprofen, and naproxen ??? Some medication that are also used for depression or seizures ??? Physical therapy and exercise ??? Cognitive behavioral therapy, a psychological, goal-directed approach, in which patients learn how to modify physical, behavioral, and emotional triggers of pain and stress. IF YOU ARE PRESCRIBED OPIOIDS FOR PAIN: ??? Never take opioids in greater amounts or more often than prescribed. ??? Follow up with your primary health care provider. o Work together to create a plan on how to manage your pain. o Talk about ways to help manage your pain that don???t involve prescription opioids. o Talk about any and all concerns and side effects. ??? Help prevent misuse and abuse o Never sell or share prescription opioids. o Never use another person???s prescription opioids. ??? Store prescription opioids in a secure place and out of reach of others (this may include visitors, children, friends, and family). ??? Safely dispose of unused prescription opioids: Find your community drug take-back program or your pharmacy mail-back program, or flush them down the toilet, following guidance from the Food and Drug Administration (www.fda.gov/Drugs/Resourc esForYou). ??? Visit www.cdc.gov/drugoverdose to learn about the risks of opioid (more content not included)... [facility] Ethanolon 04-17-2024 Ethanol Lvl <10 Normal <=11 [facility] Comment on above: Performed By: #### 2 [id number] #### [facility] [address] [place] [address] Extra Blueon 04-17-2024 Tube Collected Plasma Yes Invalid Interpretation Code [facility] Comment on above: Performed By: #### 1 [id number] #### [facility] [address] [place] [address] HEMATOLOGYOrdered By: SYSTEM SYSTEM on 04-17-2024 Basophils/100 WBC (Bld) 0.2 % Normal 0.0 - 2.0 % Remisol Heme Basophils/Leukocytes Auto (Bld) [Pure # fraction] 0.0 E9/L Normal 0.0 - 0.2 E9/L Remisol Heme Eosinophils (Bld) [#/Vol] 0.2 E9/L Normal 0.0 - 0.5 E9/L Remisol Heme Eosinophils/100 WBC (Bld) 2.9 % Normal 0.0 - 8.0 % Remisol Heme Erythrocyte distribution width (RBC) [Ratio] 13.8 % Normal 10.9 - 14.2 % Remisol Heme Hematocrit (Bld) [Volume fraction] 38.9 % Normal 34.0 - 46.0 % Remisol Heme Hemoglobin (Bld) [Mass/Vol] 12.8 g/dL Normal 12.0 - 16.0 gm/dL Remisol Heme Lymphocytes (Bld) [#/Vol] 1.0 E9/L Normal 1.0 - 4.0 E9/L Remisol Heme Lymphocytes/100 WBC (Bld) 16.4 % Normal 14.0 - 50.0 % Remisol Heme MCH (RBC) [Entitic mass] 29.1 pg Normal 27.0 - 34.0 pg Remisol Heme MCHC (RBC) [Mass/Vol] 33.0 g/dL Normal 31.4 - 36.0 gm/dL Remisol Heme MCV (RBC) [Entitic vol] 88.2 fL Normal 80.0 - 100.0 fL Remisol Heme Monocytes (Bld) [#/Vol] 0.5 E9/L Normal 0.2 - 1.0 E9/L Remisol Heme Monocytes/100 WBC (Bld) 8.5 % Normal 4.0 - 14.0 % Remisol Heme Neutrophils (Bld) [#/Vol] 4.5 E9/L Normal 2.0 - 7.5 E9/L Remisol Heme Neutrophils/100 WBC (Bld) 72.0 % Normal 36.0 - 75.0 % Remisol Heme Platelet mean volume (Bld) [Entitic vol] 7.4 fL Normal 6.4 - 10.8 fL Remisol Heme Platelets (Bld) [#/Vol] 243.0 E9/L Normal 150.0 - 500.0 E9/L Remisol Heme RBC (Bld) [#/Vol] 4.4 E12/L Normal 4.3 - 5.9 E12/L Remisol Heme WBC corrected for nucl RBC Auto (Bld) [#/Vol] 6.3 E9/L Normal 4.0 - 11.0 E9/L Remisol Heme Pre-Arrival Noteon Pre-Arrival Note Pre-Arrival Note Pre-[facility] Current Date: 04/17/2024 16:01:18 EST Gender: Female Date of : Age: 74 Pre-Arrival Type: EMS ETA: 04/17/2024 16:15:00 EST Primary Care Physician: Presenting Problem: psych/SI Pre-Arrival User: Sandy Chisholm RN Referring Source: Location: [place] Completion Date/Time: 04/17/2024 15:45:00 [facility] Emergency Department Pre-Hospital Report Form _ Vital Signs: Pre-Hospital Report: Treatment in Route: Response to Treatment: Misc. Issues: Normal [facility] UA with Cult Rflxon 04-17-20 24 Bilirubin Ql (U) Negative Normal Negative [facility] Comment on above: Performed By: #### 4 [id number] #### [facility] [address] [place] [address] Clarity (U) Clear Normal Clear [facility] Comment on above: Performed By: #### 4 [id number] #### [facility] [address] [place] [address] Color (U) Colorless Abnormal Yellow [facility] Comment on above: Result Comment: Micr oscopic readings are only performed on those samples that meet specific criteria set forth by [facility]. Performed By: #### 4 [id number] #### [facility] [address] [place] [address] Glucose Ql (U) Negative Normal Negative [facility] Comment on above: Performed By: #### 4 [id number] #### [facility] [address] [place] [address] Hemoglobin Auto test strip (U) [Mass/Vol] Negative Normal Negative [facility] Comment on above: Performed By: #### 4 [id number] #### [facility] [address] [place] [address] Ketones Auto test strip Ql (U) Negative Normal Negative [facility] Comment on above: Performed By: #### 4 [id number] #### [facility] [address] [place] [address] Leukocyte esterase Auto test strip Ql (U) Negative Normal Negative [facility] Comment on above: Performed By: #### 4 [id number] #### [facility] [address] [place] [address] Nitrite Auto test strip Ql (U) Negative Normal Negative [facility] Comment on above: Performed By: #### 4 [id number] #### [facility] [address] [place] [address] pH (U) 6.0 [pH] Invalid Interpretation Code 5.0-9.0 [facility] Comment on above: Performed By: #### 4 [id number] #### [facility] [address] [place] [address] Protein Ql (U) Negative Normal Negative [facility] Comment on above: Performed By: #### 4 [id number] #### [facility] [address] [place] [address] Specific gravity (U) [Rel density] 1.005 Invalid Interpretation Code 1.005-1.03 0 [facility] Comment on above: Performed By: #### 4 [id number] #### [facility] [address] [place] [address] Urobilinogen (U) [Mass/Vol] Negative Normal Negative [facility] Comment on above: Performed By: #### 4 [id number] #### [facility] [address] [place] [address] Type of Urine collection method Clean Catch Normal [facility] Comment on above: Performed By: #### 4 [id number] #### [facility] [address] [place] [address] URINALYSISOrdered By: SYSTEM SYSTEM on 04-17-2024 Bilirubin Ql (U) Negative Normal Negativemg /dL [facility] UA Auto SS Clarity (U) Clear (04/17/24 4:25 PM) Normal Clear [facility] UA Auto SS Color (U) Colorless 1 *ABN* (04/17/24 4:25 PM) Invalid Interpretation Code Yellow [facility] UA Auto SS Comment on above: Interpretive Data: M icroscopic readings are only performed on those samples that meet specific criteria set forth by [facility]. Glucose Ql (U) Negative Normal Negativemg /dL [facility] UA Auto SS Hemoglobin Auto test strip (U) [Mass/Vol] Negative Normal Negativemg /dL [facility] UA Auto SS Ketones Auto test strip Ql (U) Negative Normal Negativemg /dL [facility] UA Auto SS Leukocyte esterase Auto test strip Ql (U) Negative Normal NegativeLe u/uL [facility] UA Auto SS Nitrite Auto test strip Ql (U) Negative Normal Negativemg /dL [facility] UA Auto SS pH (U) 6.0 *NA* (04/17/24 4:25 PM) Invalid Interpretation Code 5.0 - 9.0 [facility] UA Auto SS Protein Ql (U) Negative Normal Negativemg /dL [facility] UA Auto SS Specific gravity (U) [Rel density] 1.005 *NA* (04/17/24 4:25 PM) Invalid Interpretation Code 1.005 - 1.030 [facility] UA Auto SS Urobilinogen (U) [Mass/Vol] Negative Normal Negativemg /dL [facility] UA Auto SS URINALYSISOrdered By: Rodrigue ferrara on 04-17-2024 UA Spec Desc Clean Catch (04/17/24 4:25 PM) Normal [facility] UA Auto SS Work Phone: eGFRon 04-17-2024 eGFR 66 mL/min/1.73 m2 Normal >=59 [facility] Comment on above: Performed By: #### 1 [id number] #### [facility] [address] [place] [id number] Urinalysison 04-15-2024 Appearance (U) Clear Normal Clear [facility] Comment on above: Order Comment: Name Collection Type:: Clean-Voided Midstream Performed By: #### C UU, ADDONUAPLUS #### [place] [address] [place] Bilirubin,Urine Negative Normal Negative [facility] Comment on above: Order Comment: Name Collection Type:: Clean-Voided Midstream Performed By: #### C UU, ADDONUAPLUS #### [place] [address] [place] Color (U) Colorless Normal Yellow [facility] Comment on above: Order Comment: Name Collection Type:: Clean-Voided Midstream Performed By: #### C UU, ADDONUAPLUS #### [place] [address] [place] Glucose Ql (U) Normal Normal Normal [facility] Comment on above: Order Comment: Name Collection Type:: Clean-Voided Midstream Performed By: #### C UU, ADDONUAPLUS #### [place] [address] [place] Ketones Ql (U) Negative Normal Negative [facility] Comment on above: Order Comment: Name Collection Type:: Clean-Voided Midstream Performed By: #### C UU, ADDONUAPLUS #### [place] [address] [place] Leukocyte esterase Test strip Ql (U) Negative Normal Negative [facility] Comment on above: Order Comment: Name Collection Type:: Clean-Voided Midstream Performed By: #### C UU, ADDONUAPLUS #### [address] Nitrite,Urine Negative Normal Negative [facility] Comment on above: Order Comment: Name Collection Type:: Clean-Voided Midstream Performed By: #### C UU, ADDONUAPLUS #### [address] Occult Blood,Urine Negative Normal Negative [facility] Comment on above: Order Comment: Name Collection Type:: Clean-Voided Midstream Result Comment: PERF ORMED BY: [place] [address] PATHOLOGIST BRAKE OPERATOR HEAVY DUTY HERO GRACIA M.D. Performed By: #### C UU, ADDONUAPLUS #### [address] pH (U) 7.0 [pH] Normal 5.0-9.0 [facility] Comment on above: Order Comment: Name Collection Type:: Clean-Voided Midstream Performed By: #### C UU, ADDONUAPLUS #### [address] Protein,Urine Negative Normal Negative [facility] Comment on above: Order Comment: Name Collection Type:: Clean-Voided Midstream Performed By: #### C UU, ADDONUAPLUS #### [place] [address] [place] Specificy [place],Urine 1.006 Normal 1.001-1.03 0 [facility] Comment on above: Order Comment: Name Collection Type:: Clean-Voided Midstream Performed By: #### C UU, ADDONUAPLUS #### [place] [address] [place] Urobilinogen,Urine Normal Normal Normal [facility] Comment on above: Order Comment: Name Collection Type:: Clean-Voided Midstream Performed By: #### C LOBO BA #### [facility] [address] [id number] [facility] XR Hand 3+ Views Righton XR Hand 3+ Views Right Exam Date/Time: 04/14/2024 18:54 EST Reason for Exam: Pain, Traumatic Report IMPRESSION: Acute fracture of the second metacarpal neck. EXAMINATION/TECHNIQUE: XR Hand 3+ Views Right HISTORY: Right hand pain. Tripped over cat. COMPARISON: 04/15/2020. RESULT: Acute fracture involving the second metacarpal neck, with minimal angulation, without significant and displacement. No evidence for acute fracture elsewhere within the hand. Tiny densities adjacent to the fourth digit PIP joint, third digit PIP joint, and thumb IP joint, grossly unchanged. Mild degenerative changes throughout the hand especially involving the IP joints, MCP joints, and thumb CMC joint, similar to prior. No radiopaque foreign bodies. No other significant abnormality. Ordering Provider: Johny Willson FINAL REPORT Dictated: 04/15/2024 9:46 am Isai Jackson MD. Signed (Electronic Signature): 04/15/2024 9:46 am Signed by: Isai Jackson MD Transcribed by: GLORIA Technologist: SYDNIE Technical Comments Radiation Dose: Ka,r in mGy = na DAP = na Normal [facility] ED Clinical Summaryon 2023 ED Clinical Summary ED Clinical Summary [place] [id number] ED Clinical Summary Person Information Name: MAEGAN DYE/[facility] Age: 74 Years : 1950 Sex: Female Language: Dutch PCP: AZUL GORMAN CNP Marital Status: MRN: [id number] Visit Id: Visit Reason: Hand pain-swelling; Hand injury - Minor; HAND INJURY Speciality: Acuity: 4 Enc Type: Emergency Med Service: Emergency Arrival: 04/14/2024 17:44:58 Discharge: 04/14/2024 20:34:51 LOS: 000 02:50 Checkin: 04/14/2024 17:44:58 Checkout: 04/14/2024 20:34:51 Dispo Type: Home (Routine DC) EVENTS: Event Name Event Status Request Date/Time Start Date/Time Complete Date/Time Arrive Complete 04/14/2024 17:44:58 04/14/2024 17:44:58 04/14/2024 17:44:58 Document Home Meds Request 04/14/2024 17:44:58 Triage Complete 04/14/2024 17:44:58 04/14/2024 18:05:58 04/14/2024 18:05:58 Registration Complete 04/14/2024 17:59:14 04/14/2024 17:59:14 04/14/2024 17:59:14 Reg Complete Request 04/14/2024 17:59:14 Reg Bed Request Complete 04/14/2024 17:59:14 04/14/2024 17:59:14 04/14/2024 17:59:14 Isolation Screening Request 04/14/2024 18:05:59 30 Day Return Request 04/14/2024 18:05:59 X-Ray Complete 04/14/2024 18:06:20 04/14/2024 18:43:26 04/14/2024 18:54:29 Wet Read Request 04/14/2024 18:54:29 Bed Assign Complete 04/14/2024 19:52:29 04/14/2024 19:52:29 04/14/2024 19:52:29 Dr Exam Complete 04/14/2024 19:52:29 04/14/2024 20:06:17 04/14/2024 20:06:17 RN Exam Complete 04/14/2024 19:52:29 04/14/2024 20:20:47 04/14/2024 20:20:47 Registration Request 04/14/2024 20:06:17 Dr Exam Complete 04/14/2024 20:07:16 04/14/2024 20:07:16 04/14/2024 20:07:16 Patient Care Request 04/14/2024 20:08:09 Meds Admin Complete 04/14/2024 20:09:29 04/14/2024 20:21:36 Discharge Complete 04/14/2024 20:10:38 04/14/2024 20:35:03 04/14/2024 20:35:03 Transfer Complete 04/14/2024 20:35:03 04/14/2024 20:35:03 04/14/2024 20:35:03 ADDRESS: [facility] [address] [facility] [id number] PHYS DOC NOTES: MEDICAL INFORMATION: Prescriptions Given: New Medications [facility]/pharmacy #[id number], [address] [place], [place] [id number], [phone] acetaminophen-hydrocodone (Rock 325 mg-5 mg oral tablet) 1 Tablets By Mouth every 6 hours as needed for pain. Refills: 0. Printed Prescriptions [facility] Prescription (Walker) Dispense one walker. Refills: 0. Medications to Continue with No Changes Other Medications amlodipine (amLODIPine 5 mg Tab) 1 Tablets By Mouth every day. TAKE 1 TABLET BY MOUTH EVERY DAY. amoxicillin (amoxicillin 500 mg Cap) 1 Capsules By Mouth 3 times a day for 7 Days. Refills: 0. celecoxib (celecoxib 200 mg Cap) TAKE 1 CAPSULE BY MOUTH EVERY DAY. clonazepam (clonazepam 1 mg Tab) 1 Tablets By Mouth 3 times a day. TAKE 1 TABLET BY MOUTH THREE TIMES A DAY NEEDED FOR ANXIETY. Refills: 0. docusate (Colace 100 mg Cap) 1 Capsules By Mouth 2 times a day. Hold for diarrhea. Refills: 0. donepezil (donepezil 5 mg Tab) 1 Tablets By Mouth once a day (at bedtime). Ensure (Ensure Vanilla) Drink 1 bottle (8 fl. oz.) BID. Refills: 5. escitalopram (escitalopram 5 mg oral tablet) 1 Tablets By Mouth every day. fluticasone nasal (fluticasone 0.05 mg/inh Nasal [place]) 2 Sprays Nasal Inhalation every day. each nostril. Refills: 5. loratadine (loratadine 10 mg oral capsule) 1 Capsules By Mouth every day. olanzapine (olanzapine 7.5 mg oral tablet) 1 Tablets By Mouth once a day (at bedtime). ondansetron (ondansetron 4 mg Dis Tab) 1 Tablets By Mouth every 6 hours as needed Nausea/Vomiting. Refills: 0. ondansetron (Zofran ODT 4 mg Tab-Dis) 1 Tablets By Mouth 3 times a day as needed Nausea. Refills: 1. pantoprazole (Pantoprazole [address] Tab) TAKE 1 TABLET BY MOUTH EVERY DAY. phenazopyridine (phenazopyridine 200 mg Tab) 1 Tablets By Mouth after meals. polyethylene glycol 3350 (Miralax 17 gram packet) 17 Gram By Mouth every day. potassium chloride (potassium chloride 10 mEq Cap-ER) 1 Capsules By Mouth every other day. Refills: 2. senna (Senokot 8.6 mg Tab) 2 Tablets By Mouth once a day (at bedtime) as needed for constipation. Refills: 1. sodium chloride 2 gram By Mouth 3 times a day. sulfamethoxazole-trimethop rim (sulfamethoxazole-trimetho prim 400 mg-80 mg Tab) trazodone (traZODONE 150 mg Tab) 1 Tablets By Mouth once a day (at bedtime). Do not give with clonazepam. Refills: 3. PATIENT EDUCATION INFORMATION: Instructions: Finger Fracture, Adult Follow up: With: Address: When: Kye Barrientos [address] [place] [address] Singspiel () In 3 days 04/17/2024 Comments: Call the office of your primary care doctor to arrange for follow-up within the above-stated timeframe. Follow-up with your primary care doctor about this ED visit. You should review your labs, imaging, and diagnoses from this ED visit with your primary care physician. There are (more content not included)... Normal [facility] ED Note-Physicianon 04-14-20 ED Note-Physician ED Note-Physician Basic Information Time Seen: Johny Willson DO 04/14/2024 20:07 Chief Complaint Pt presents to ED with complaints of right hand bruising and edema after tripping over cat and hitting hand on cabinet History of Present Illness 74-year-old female to the emergency department with chief complaint of injury to her right second digit. She reports she tripped over her cat and hit her hand on a cabinet. She has some swelling and tenderness at the second MCP. She denies any other injuries. Did not hit her head or lose consciousness. Review of Systems A 10 point review of systems is negative except as noted above. Medical and Surgical History: Reviewed and noted Social history: Lives at home Tobacco: Denies Physical Exam Vitals & Measurements T: 36.6 ???C(Oral) HR: 80(Peripheral) RR: 18 BP: 161/73 SpO2: 94% HT: 154 cm WT: 66.1 kg BMI: 27.87 Right upper Extremity: Radial Pulse is intact. Limb is similar color and temperature to the contralateral limb. No edema. No ecchymosis. No laceration. No abrasion. No deformity. Bony tenderness only over the distal second metacarpal bone associated with some ecchymosis and swelling. . 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 Normal ROM of wrist, elbow, shoulder. Medical Decision Making Patient has a nondisplaced fracture of the distal metacarpal of the second digit on the right hand. Limb is neurovascular intact. Rogelio tape, foam aluminum splint and wrist splint for immobilization. This was best compromise of immobilization to help her with her use of a walker. She will follow-up with orthopedics. Short prescription of pain medication. Return precautions were discussed. All questions were answered. The patient was discharged home. Assessment/Plan Finger fracture (S62.609A: Fracture of unspecified phalanx of unspecified finger, initial encounter for closed fracture) Ordered: acetaminophen-hydrocodone, 1 tab(s), Oral, q6hr for pain, 4 tab(s), Refill(s) 0, [facility]/pharmacy #[id number], 154, cm, 04/14/24 18:05:00 EST, Height/Length Dosing, 66.1, kg, 04/14/24 18:05:00 EST, Weight Dosing Orders: acetaminophen-oxycodone, 1 tab(s), Tab, Oral, Once, Stop date 04/14/24 20:08:00 EST, STAT, Start date 04/14/24 20:08:00 EST Misc Prescription, Walker, See Instructions, 1 EA, 0, Dispense one walker, Supply Finger Splint Application Splint Application Wrist XR Hand 3+ Views Right Medications Administered Given Percocet 5 mg-325 mg oral tablet, 1 tab(s), Oral Disposition Plan Patient Discharge Condition Stable Discharge Disposition Home Discharge Prescription List Prescriptions Rock 325 mg-5 mg oral tablet, 1 tab(s), Oral, q6hr, PRN Walker, See Instructions Follow-up With When Contact Information Kye Barrientos In 3 days 04/17/2024 EST [address] [place] [address]- Business (1) Additional Instructions: Call the office of your primary care doctor [...] you develop any new or worsening symptoms. Patient Education Finger Fracture, Adult Problem List/Past Medical History Ongoing Acute UTI [...] Vitamin D deficiency Historical Accidental fall Agent [place]inson ASTHMA Benzodiazepine withdrawal Bipolar disorder Callus of [...] HTN - Hypertension Hypertension Hypo-osmolality and or hyponatremia Hypokalemia L (more content not included)... 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 It is important that you follow up with a doctor, nurse practitioner, or physician???s assistant executive housekeeper for ongoing care. If your symptoms become worse or you do not improve as expected and you are unable to reach your usual health care provider, you should return to the Emergency Department. We are available 24 hours a day. MAEGAN DYE has been given the following list of patient education materials, prescriptions and follow-up instructions: Follow-up Instructions: With: Address: When: Kye Barrientos [address] [place] [address] [facility] ([employer] In 3 days 04/17/2024 Comments: Call the office of your primary care doctor [...] you develop any new or worsening symptoms. In the event that this physician does not participate in your insurance network, please consult with your insurance company to find a nearby participating provider. Patient Education Materials: Finger Fracture, Adult A MESSAGE TO ALL PATIENTS REGARDING OPIOIDS PRESCRIPTION OPIOIDS: WHAT YOU NEED TO KNOW Prescription opioids can be used to help relieve lqyloxae-mt-pcqwlc pain and are often prescribed following a [...] as well, even when taken as directed: ??? Tolerance???meaning you might need to take more of the medication for the same pain relief ??? Physical dependence???meaning you have symptoms of withdrawal when a medication is stopped ??? Increased sensitivity to pain ??? Constipation ??? Nausea, vomiting, and dry mouth ??? Sleepiness and dizziness ??? Confusion ??? Depression ??? Low levels of testosterone that can result in lower sex drive, energy, and strength ??? Itching and sweating RISKS ARE GREATER WITH: ??? History of drug misuse, substance use disorder, or overdose ??? Mental health conditions (such as depression or anxiety) ??? Sleep apnea ??? Older age (65 years and older) ??? Avoid alcohol while taking prescription opioids. Also, unless specifically advised by your health care provider, medications to avoid include: ??? Benzodiazepines (such as Xanax or Valium) ??? Muscle relaxants (such as Soma or Flexeril) ??? Hypnotics (such as Ambien or Lunesta) ??? Other prescription opioids KNOW YOUR OPTIONS Talk to your health care provider about ways to manage your pain that don???t involve prescription opioids. Some of these options may actually work better and have fewer risks and side effects. Options may include: ??? Pain relievers such as acetaminophen, ibuprofen, and naproxen ??? Some medication that are also used for depression or seizures ??? Physical therapy and exercise ??? Cognitive behavioral therapy, a psychological, goal-directed approach, in which patients learn how to modify physical, behavioral, and emotional triggers of pain and stress. IF YOU ARE PRESCRIBED OPIOIDS FOR PAIN: ??? Never take opioids in greater amounts or more often than prescribed. ??? Follow up with your primary health care provider. o Work together to create a plan on how to manage your pain. o Talk about ways to help manage your pain that don???t involve prescription opioids. o Talk about any and all concerns and side effects. ??? Help prevent misuse and abuse o Never sell or share prescription opioids. o Never use another person???s prescription opioids. ??? S (more content not included)... Normal [facility] C Urineon 04-13-2024 Bacteria identified Cx Nom (U) Microbiology PROCEDURE: Urine Culture [R1] SOURCE: U CleanCatch BODY SITE: COLLECTED DATE/TIME: 04/11/2024 13:25 EST RECEIVED DATE/TIME: 04/11/2024 14:05 EST START DATE/TIME: 04/11/2024 14:05 EST FREE TEXT SOURCE: Jaxon RAMOS, Carlos Coates MD, Carlos FINAL REPORTS Final Report [] Verified Date/Time: 04/13/2024 10:04 EST 20,000 cfu/ml Enterococcus faecium 2,000 cfu/ml Mixed skin contaminants SUSCEPTIBILITY RESULTS _ LEGEND: S=Susceptible, N/R=Not Reported, Blank=Data not available, or drug not advisable or tested, I=Intermediate, ESBL=Extended spectrum beta-lactamase, R=Resistant, TFG=Thymidine-dependent strain, ANAY=Beta-lactamase positive, REINALDO=mcg/m;(mg/L), S*=Predicted susceptible interp, R*=Predicted resistant interp Entfaeci Antibiotic REINALDO Dilutn REINALDO Interp Ampicillin <=2 S Ciprofloxacin <=1 S Daptomycin <=1 S Levofloxacin <=1 S Linezolid <=2 S Nitrofurantoin <=32 S Penicillin 2 S Rifampin >2 R Tetracycline >8 R Vancomycin <=0.5 S Performing Locations R1: This test was performed at: [facility], [address] [place] [address], [phone] , [place], Normal [facility] Comment on above: Performed By: #### 2 [id number] #### [facility] [address] [place] [address] C. diff by PCRon 04-12-2024 Clostridium difficile by PCR Negative Normal Negative [facility] Comment on above: Order Comment: Order added by Discern Expert. Result Comment: This test result should be correlated with clinical presentations and medical history by a healthcare provider to determine its clinical significance. Performed By: #### 4 [id number] #### [facility] [address] [place] [address] CDiff PCRon 04-12-2024 C. difficile toxin A+B Ql (Stl) No, PCR to follow Normal [facility] Comment on above: Performed By: #### 3 [id number] #### [facility] [address] [place] [address] Enteric Panel by PCRon 04-12 C. coli+jejuni+upsaliensi s DNA NAOMIE+non-probe Ql (Stl) Not detected Normal [facility] Comment on above: Result Comment: Test ing was performed utilizing reverse senior licensing manager (RT), polymerase chain reaction (PCR), and array hybridization to detect specific gastrointestinal microbial nucleic acid gene sequences associated with the following pathogenic bacteria and viruses:Campylobacter Group (composed of C. coli, C. jejuni, and C. leticia), Salmonella species, Shigella species (including S. dysenteriae, S. boydii, S. sonnei and S. flexneri), Vibrio Group (composed of V. cholera and V. parahaemolyticus), Yersinia enterocolitica, Norovirus GI/GII, and Rotavirus A. In addition, EPdetects Shiga toxin 1 gene and Shiga toxin 2 gene virulence markers. Shiga toxin producing E. coli (STEC) typically harbor one or both genes that encode for Shiga toxins 1 and 2. Campylobacter group, Salmonella species, Shigella species, Vibrio group, Rotavirus A, Shiga Toxin 1, Shiga Toxin 2, Norovirus GI/GII, and Yersinia enterocolitica were tested by Verigene nulcleic acid test. Performed By: #### 1 [id number] #### [facility] [address] [place] [address] E. coli stx1+stx2 genes NAOMIE+non-probe Ql (Stl) Negative Normal [facility] Comment on above: Performed By: #### 1 [id number] #### [facility] [address] [place] [address] Enteric Panel Intrl QC Pass Normal [facility] Comment on above: Result Comment: Test ing was performed utilizing reverse senior licensing manager (RT), polymerase chain reaction (PCR), and array hybridization to detect specific gastrointestinal microbial nucleic acid gene sequences associated with the following pathogenic bacteria and viruses:Campylobacter Group (composed of C. coli, C. jejuni, and C. leticia), Salmonella species, Shigella species (including S. dysenteriae, S. boydii, S. sonnei and S. flexneri), Vibrio Group (composed of V. cholera and V. parahaemolyticus), Yersinia enterocolitica, Norovirus GI/GII, and Rotavirus A. In addition, EPdetects Shiga toxin 1 gene and Shiga toxin 2 gene virulence markers. Shiga toxin producing E. coli (STEC) typically harbor one or both genes that encode for Shiga toxins 1 and 2. Performed By: #### 1 [id number] #### [facility] [address] [place] [address] Norovirus genogroup I+II RNA NAOMIE+non-probe Ql (Stl) Not detected Normal [facility] Comment on above: Performed By: #### 1 [id number] #### [facility] [address] [place] [address] Rotavirus A RNA NAOMIE+non-probe Ql (Stl) Not detected Normal [facility] Comment on above: Performed By: #### 1 [id number] #### [facility] [address] [place] [address] S. enterica+bongori DNA NAOMIE+non-probe Ql (Stl) Not detected Normal [facility] Comment on above: Result Comment: This test result should be correlated with clinical presentations and medical history by a healthcare provider to determine its clinical significance. Performed By: #### 1 [id number] #### [facility] [address] [place] [address] Shigella species+EIEC invasion plasmid antigen H ipaH gene NAOMIE+non-probe Ql (Stl) Not detected Normal [facility] Comment on above: Performed By: #### 1 [id number] #### [facility] [address] [place] [address] V. cholerae+parahaemolyti cus+vulnificus DNA NAOMIE+non-probe Ql (Stl) Not detected Normal [facility] Comment on above: Performed By: #### 1 [id number] #### [facility] [address] [place] [address] Y. enterocolitica DNA NAOMIE+non-probe Ql (Stl) Not detected Normal [facility] Comment on above: Performed By: #### 1 [id number] #### [facility] [address] [place] [address] Fecal WBC Lactoferrinon 03-26 Lactoferrin Ql (Stl) Negative Normal Negative [facility] Comment on above: Result Comment: The semi-quantitative detection of elevated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 Performed By: #### 4 [id number] #### [facility] [address] [place] [address] Hemoglobin Auto test strip (U) [Mass/Vol] Negative Normal Negative [facility] Comment on above: Performed By: #### 4 [id number] #### [facility] [address] [place] [address] Ketones Auto test strip Ql (U) Negative Normal Negative [facility] Comment on above: Performed By: #### 4 [id number] #### [facility] [address] [place] [address] Leukocyte esterase Auto test strip Ql (U) 75 Gretchen/uL Abnormal Negative [facility] Comment on above: Performed By: #### 4 [id number] #### [facility] [address] [place] [address] Mucus Auto Ql (U) Trace Normal Negative [facility] Comment on above: Performed By: #### 4 [id number] #### [facility] [address] [place] [address] Nitrite Auto test strip Ql (U) Negative Normal Negative [facility] Comment on above: Performed By: #### 4 [id number] #### [facility] [address] [place] [address] pH (U) 6.0 [pH] Invalid Interpretation Code 5.0-9.0 [facility] Comment on above: Performed By: #### 4 [id number] #### [facility] [address] [place] [address] Protein Ql (U) Negative Normal Negative [facility] Comment on above: Performed By: #### 4 [id number] #### [facility] [address] [place] [address] RBC Ql (U) 0-3 Normal 0-3 [facility] Comment on above: Performed By: #### 4 [id number] #### [facility] [address] [place] [address] Specific gravity (U) [Rel density] 1.006 Invalid Interpretation Code 1.005-1.03 0 [facility] Comment on above: Performed By: #### 4 [id number] #### [facility] [address] [place] [address] Urobilinogen (U) [Mass/Vol] Negative Normal Negative [facility] Comment on above: Performed By: #### 4 [id number] #### [facility] [address] [place] [address] WBC Auto (Urine sed) [#/Area] 0-5 Normal 0-5 [facility] Comment on above: Performed By: #### 4 [id number] #### [facility] [address] [place] [address] Type of Urine collection method Clean Catch Normal [facility] Comment on above: Performed By: #### 4 [id number] #### [facility] [address] [place] [id number] URINALYSISOrdered By: SYSTEM SYSTEM on 04-11-2024 Bacteria Auto Ql (U) 3+ /HPF Invalid Interpretation Code Trace/HPF [facility] UA Auto SS Bilirubin Ql (U) Negative Normal Negativemg /dL [facility] UA Auto SS Clarity (U) Clear (04/11/24 1:25 PM) Normal Clear [facility] UA Auto SS Color (U) Light-Yellow 1 (04/11/24 1:25 PM) Normal Yellow [facility]A Auto SS Comment on above: Interpretive Data: M icroscopic readings are only performed on those samples that meet specific criteria set forth by [facility]. Epithelial cells.renal Computer assisted Ql (U) 0-2 graded/HPF Invalid Interpretation Code [facility] UA Auto SS Epithelial cells.squamous Auto (Urine sed) [#/Area] 0-2 graded/HPF Invalid Interpretation Code [facility] UA Auto SS Glucose Ql (U) Negative Normal Negativemg /dL [facility] UA Auto SS Hemoglobin Auto test strip (U) [Mass/Vol] Negative Normal Negativemg /dL [facility] UA Auto SS Ketones Auto test strip Ql (U) Negative Normal Negativemg /dL [facility] UA Auto SS Leukocyte esterase Auto test strip Ql (U) 75 Gretchen/uL Gretchen/uL Invalid Interpretation Code NegativeLe u/uL [facility] UA Auto SS Mucus Auto Ql (U) Trace graded/LPF Normal Negati vegr aded/LPF [facility] UA Auto SS Nitrite Auto test strip Ql (U) Negative Normal Negativemg /dL [facility] UA Auto SS pH (U) 6.0 *NA* (04/11/24 1:25 PM) Invalid Interpretation Code 5.0 - 9.0 [facility] UA Auto SS Protein Ql (U) Negative Normal Negativemg /dL [facility] UA Auto SS RBC Ql (U) 0-3 graded/HPF Normal 0-3graded/ HPF [facility] UA Auto SS Specific gravity (U) [Rel density] 1.006 *NA* (04/11/24 1:25 PM) Invalid Interpretation Code 1.005 - 1.030 [facility] UA Auto SS Urobilinogen (U) [Mass/Vol] Negative Normal Negativemg /dL [facility] UA Auto SS WBC Auto (Urine sed) [#/Area] 0-5 graded/HPF Normal 0-5graded/ HPF [facility] UA Auto SS URINALYSISOrdered By: Carlos gomez on 04-11-2024 UA Spec Desc Clean Catch (04/11/24 1:25 PM) Normal [facility] UA Auto SS Work Phone: eGFRon 04-11-2024 eGFR 47 mL/min/1.73 m2 Low >=59 [facility] Comment on above: Performed By: #### 1 [id number] #### [facility] [address] [place] [id number] ED Clinical Summaryon 2023 ED Clinical Summary ED Clinical Summary [address] [address] ED Clinical Summary Person Information Name: MAEGAN DYE/NewDarrius Age: 74 Years : 1950 Sex: Female Language: Dutch PCP: AZUL GORMAN CNP Marital Status: Visit Id: Visit Reason: Urinary frequency; BACK PAIN / TROUBLE URINATING Speciality: Acuity: 4 Enc Type: Emergency Med Service: Emergency Arrival: 04/08/2024 11:39:36 Discharge: 04/08/2024 13:06:29 LOS: 000 01:27 Checkin: 04/08/2024 11:39:36 Checkout: 04/08/2024 13:06:29 Dispo Type: Home (Routine DC) EVENTS: Event Name Event Status Request Date/Time Start Date/Time Complete Date/Time Arrive Complete 04/08/2024 11:39:36 04/08/2024 11:39:36 04/08/2024 11:39:36 Document Home Meds Request 04/08/2024 11:39:36 Triage Complete 04/08/2024 11:39:36 04/08/2024 11:53:39 04/08/2024 11:53:39 Bed Assign Complete 04/08/2024 11:48:48 04/08/2024 11:48:48 04/08/2024 11:48:48 Dr Exam Complete 04/08/2024 11:48:48 04/08/2024 11:51:12 04/08/2024 11:51:12 RN Exam Complete 04/08/2024 11:48:48 04/08/2024 12:36:33 04/08/2024 12:36:33 Registration Complete 04/08/2024 11:49:17 04/08/2024 11:49:17 04/08/2024 11:49:17 Reg Complete Request 04/08/2024 11:49:17 Reg Bed Request Complete 04/08/2024 11:49:17 04/08/2024 11:49:17 04/08/2024 11:49:17 Registration Request 04/08/2024 11:51:12 Dr Exam Complete 04/08/2024 11:51:47 04/08/2024 11:51:47 04/08/2024 11:51:47 Isolation Screening Request 04/08/2024 11:53:39 30 Day Return Request 04/08/2024 11:53:40 Pending Labs Complete 04/08/2024 11:54:19 04/08/2024 12:29:36 Dr Exam Complete 04/08/2024 12:07:37 04/08/2024 12:07:37 04/08/2024 12:07:37 Discharge Complete 04/08/2024 13:02:07 04/08/2024 13:06:36 04/08/2024 13:06:36 Transfer Complete 04/08/2024 13:06:36 04/08/2024 13:06:36 04/08/2024 13:06:36 ADDRESS: [address] [facility] [id number] PHYS DOC NOTES: MEDICAL INFORMATION: Prescriptions Given: Medications to Continue with No Changes Other Medications amlodipine (amLODIPine 5 mg Tab) 1 Tablets By Mouth every day. TAKE 1 TABLET BY MOUTH EVERY DAY. celecoxib (celecoxib 200 mg Cap) TAKE 1 CAPSULE BY MOUTH EVERY DAY. clonazepam (clonazepam 1 mg Tab) 1 Tablets By Mouth 3 times a day. TAKE 1 TABLET BY MOUTH THREE TIMES A DAY NEEDED FOR ANXIETY. Refills: 0. docusate (Colace 100 mg Cap) 1 Capsules By Mouth 2 times a day. Hold for diarrhea. Refills: 0. donepezil (donepezil 5 mg Tab) 1 Tablets By Mouth once a day (at bedtime). Ensure (Ensure Vanilla) Drink 1 bottle (8 fl. oz.) BID. Refills: 5. escitalopram (escitalopram 5 mg oral tablet) 1 Tablets By Mouth every day. fluticasone nasal (fluticasone 0.05 mg/inh Nasal [place]) 2 Sprays Nasal Inhalation every day. each nostril. Refills: 5. loratadine (loratadine 10 mg oral capsule) 1 Capsules By Mouth every day. olanzapine (olanzapine 7.5 mg oral tablet) 1 Tablets By Mouth once a day (at bedtime). ondansetron (ondansetron 4 mg Dis Tab) 1 Tablets By Mouth every 6 hours as needed Nausea/Vomiting. Refills: 0. ondansetron (Zofran ODT 4 mg Tab-Dis) 1 Tablets By Mouth 3 times a day as needed Nausea. Refills: 1. pantoprazole (Pantoprazole [address] Tab) TAKE 1 TABLET BY MOUTH EVERY DAY. phenazopyridine (phenazopyridine 200 mg Tab) 1 Tablets By Mouth after meals. polyethylene glycol 3350 (Miralax 17 gram packet) 17 Gram By Mouth every day. potassium chloride (potassium chloride 10 mEq Cap-ER) 1 Capsules By Mouth every other day. Refills: 2. senna (Senokot 8.6 mg Tab) 2 Tablets By Mouth once a day (at bedtime) as needed for constipation. Refills: 1. sodium chloride 2 gram By Mouth 3 times a day. sulfamethoxazole-trimethop rim (sulfamethoxazole-trimetho prim 400 mg-80 mg Tab) trazodone (traZODONE 150 mg Tab) 1 Tablets By Mouth once a day (at bedtime). Do not give with clonazepam. Refills: 3. PATIENT EDUCATION INFORMATION: Instructions: Dysuria Follow up: With: Address: When: AZUL Cortez [facility] [address] [place] [id number] [facility] () In 3 days 04/11/2024 DIAGNOSIS: Dysuria Normal [facility] ED Note-Physicianon 04-08-20 ED Note-Physician ED Note-Physician Basic Information Time Seen: Malick Ho PA-C 04/08/2024 11:51 Chief Complaint pt has lower back pain. hadd trouble urinating but was able to go today. History of Present Illness 74-year-old female comes into the ED for evaluation of dysuria. The patient has a longstanding history of urinary issues with underlying neurogenic bladder disorder. She has chronic problems with recurrent urinary retention, often she has to self catheterize at home. She also gets recurrent urinary tract infections. She presents today complaining of some dysuria difficulty urinating, but says upon arrival here she had a large urination in the waiting room and no longer feels the urge to urinate. She does voice concerns of possibility of infection. No fever, chills, nausea, vomiting. Review of Systems A 10 point review of systems is negative except as noted above. Medical and Surgical History: Reviewed and noted Social history: Lives at home Tobacco: Denies Physical Exam Vitals & Measurements T: 36.6 ???C(Oral) HR: 61(Peripheral) RR: 18 BP: 136/75 SpO2: 94% HT: 154 cm WT: 66.1 kg BMI: 27.87 Nurses notes and vital signs reviewed and patient is not hypoxic. General: The patient appears well, resting comfortably. Skin: Warm, dry. Head: Atraumatic. Neck: No JVD. Eye: Normal conjunctiva. Ears, Nose, Mouth, and Throat: Moist mucous membranes. Cardiovascular: Strong distal pulses. Chest wall: Respiratory: Respirations are nonlabored. Back: Normal range of motion. Musculoskeletal: Normal ROM with no gross deformity. Gastrointestinal: Soft and nontender Urological: Bladder is not palpable Neurological: Awake and alert. No focal deficits. Follows commands. Psychiatric: Cooperative. Medical Decision Making Patient was able to provide a urine sample here without difficulty. This shows no evidence of infection. She is requesting discharge home and will follow-up with her PCP. Patient was encouraged to return to the ED if symptoms worsen or change. Assessment/Plan Dysuria (R30.0: Dysuria) Orders: UA with Cult Rflx Disposition Plan Patient Discharge Condition Disposition: Discharged home Condition: Improved and stable Counseled: Patient and/or family were counseled to workup, results, treatment plan and follow-up recommendations Discharge Prescription List Prescriptions No active prescription medications Follow-up With When Contact Information AZUL GORMAN In 3 days 04/11/[address] [place] [id number] [facility] (1) Additional Instructions: Patient Education Dysuria Attestation I performed a substantive part of the MDM during the patient???s E/M visit. I personally made or approved the documented management plan and acknowledge its risk of complications. (Independent Interpretation) My (EKG/X-Ray/US/CT) interpretation as above. (Discussion) Management/test interpretation discussed with APC. This report was transcribed using voice recognition software. Every effort was made to ensure accuracy, however, inadvertently computerized senior licensing manager mistakes may be present. Appropriate healthcare PPE was used in evaluating this patient. Problem List/Past Medical History Ongoing Acute UTI [...] Vitamin D deficiency Historical Accidental fall Agent Vinson ASTHMA Benzodiazepine withdrawal Bipolar disorder Callus of [...] HTN - Hypertension Hypertension Hypo-osmolality and or hyponatremia Hypokalemia Laryngitis Left hip pain multiple broken bones Neurogenic bladder Obesity Obesity due to excess calories Oral thrush Panic disorder with agoraphobia Physical deconditioning Right foot pain Seizure Smoker Procedure/Surgical History Urodynamics (07/06/2019), cysto w/ UD (07/05/2019), left femur ORIF (more content not included)... Normal [facility] Comment on above: Result Comment: Elec tronically Signed By: Malick Ho PA-C\.br\Date and Time Signed: 04/08/24 14:01 EST\.br\Electronically Co-Signed By: Didier Hooks M.D.\.br\Date and Time Co-Signed: 04/08/24 18:29 EST ED Patient Summaryon 024 ED Patient Summary ED Patient Summary [place] [id number] Patient Discharge Instructions Person Information Name: MAEGAN DYE Age: 74 Years Arrival Date: 04/08/2024 11:39:36 Discharge Diagnosis: Dysuria Primary Care Physician: AZUL GORMAN CNP Provider Information Primary Provider: Neva NewtonDidier [employer] Set Up Operator Vertical:Malick Ho PA-C The exam and treatment you received in the Emergency Department were for an urgent problem and are not intended as complete care. It is important that you follow up with a doctor, nurse practitioner, or physician???s assistant executive housekeeper for ongoing care. If your symptoms become worse or you do not improve as expected and you are unable to reach your usual health care provider, you should return to the Emergency Department. We are available 24 hours a day. MAEGAN DYE has been given the following list of patient education materials, prescriptions and follow-up instructions: Follow-up Instructions: With: Address: When: AZUL [address] [place] [address] [place], [place] [id number] Business (1) In 3 days 04/11/2024 In the event that this physician does not participate in your insurance network, please consult with your insurance company to find a nearby participating provider. Patient Education Materials: Dysuria A MESSAGE TO ALL PATIENTS REGARDING OPIOIDS PRESCRIPTION OPIOIDS: WHAT YOU NEED TO KNOW Prescription opioids can be used to help relieve ahdborav-ex-awpywz pain and are often prescribed following a [...] as well, even when taken as directed: ??? Tolerance???meaning you might need to take more of the medication for the same pain relief ??? Physical dependence???meaning you have symptoms of withdrawal when a medication is stopped ??? Increased sensitivity to pain ??? Constipation ??? Nausea, vomiting, and dry mouth ??? Sleepiness and dizziness ??? Confusion ??? Depression ??? Low levels of testosterone that can result in lower sex drive, energy, and strength ??? Itching and sweating RISKS ARE GREATER WITH: ??? History of drug misuse, substance use disorder, or overdose ??? Mental health conditions (such as depression or anxiety) ??? Sleep apnea ??? Older age (65 years and older) ??? Avoid alcohol while taking prescription opioids. Also, unless specifically advised by your health care provider, medications to avoid include: ??? Benzodiazepines (such as Xanax or Valium) ??? Muscle relaxants (such as Soma or Flexeril) ??? Hypnotics (such as Ambien or Lunesta) ??? Other prescription opioids KNOW YOUR OPTIONS Talk to your health care provider about ways to manage your pain that don???t involve prescription opioids. Some of these options may actually work better and have fewer risks and side effects. Options may include: ??? Pain relievers such as acetaminophen, ibuprofen, and naproxen ??? Some medication that are also used for depression or seizures ??? Physical therapy and exercise ??? Cognitive behavioral therapy, a psychological, goal-directed approach, in which patients learn how to modify physical, behavioral, and emotional triggers of pain and stress. IF YOU ARE PRESCRIBED OPIOIDS FOR PAIN: ??? Never take opioids in greater amounts or more often than prescribed. ??? Follow up with your primary health care provider. o Work together to create a plan on how to manage your pain. o Talk about ways to help manage your pain that don???t involve prescription opioids. o Talk about any and all concerns and side effects. ??? Help prevent misuse and abuse o Never sell or share prescription opioids. o Never use another person???s prescription opioids. ??? Store prescription opioids in a secure place and out of reach of others (this may include visitors, children, friends, and family). ??? Safely dispose of unused prescription opioids: Find your community drug take-back program or your pharmacy mail-back program, or flush them down the toilet, following guidance from the Food and Drug Administration (www.fda.gov/Drugs/Resourc esForYou). ??? Visit www.cdc.gov/drugoverdose to learn about the risks of opioids abuse and overdose. ??? If you believe you may be struggling with addiction, tell your health health care aide and ask for guidance o (more content not included)... Normal [facility] UA with Cult Rflxon 04-08-20 24 Bilirubin Ql (U) Negative Normal Negative [facility] Comment on above: Performed By: #### 4 [id number] #### [facility] [address] [place] [address] Clarity (U) Clear Normal Clear [facility] Comment on above: Performed By: #### 4 [id number] #### [facility] [address] [place] [address] Color (U) Colorless Abnormal Yellow [facility] Comment on above: Result Comment: Micr oscopic readings are only performed on those samples that meet specific criteria set forth by [facility]. Performed By: #### 4 [id number] #### [facility] [address] [place] [address] Glucose Ql (U) Negative Normal Negative [facility] Comment on above: Performed By: #### 4 [id number] #### [facility] [address] [place] [address] Hemoglobin Auto test strip (U) [Mass/Vol] Negative Normal Negative [facility] Comment on above: Performed By: #### 4 [id number] #### [facility] [address] [place] [address] Ketones Auto test strip Ql (U) Negative Normal Negative [facility] Comment on above: Performed By: #### 4 [id number] #### [facility] [address] [place] [address] Leukocyte esterase Auto test strip Ql (U) Negative Normal Negative [facility] Comment on above: Performed By: #### 4 [id number] #### [facility] [address] [place] [address] Nitrite Auto test strip Ql (U) Negative Normal Negative [facility] Comment on above: Performed By: #### 4 [id number] #### [facility] [address] [place] [address] pH (U) 7.0 [pH] Invalid Interpretation Code 5.0-9.0 [facility] Comment on above: Performed By: #### 4 [id number] #### [facility] [address] [place] [address] Protein Ql (U) Negative Normal Negative [facility] Comment on above: Performed By: #### 4 [id number] #### [facility] [address] [place] [address] Specific gravity (U) [Rel density] 1.003 Invalid Interpretation Code 1.005-1.03 0 [facility] Comment on above: Performed By: #### 4 [id number] #### [facility] [address] [place] [address] Urobilinogen (U) [Mass/Vol] Negative Normal Negative [facility] Comment on above: Performed By: #### 4 [id number] #### [facility] [address] [place] [address] Type of Urine collection method Clean Catch Normal [facility] Comment on above: Performed By: #### 4 [id number] #### [facility] [address] [place] [address] URINALYSISOrdered By: SYSTEM SYSTEM on 04-08-2024 Bilirubin Ql (U) Negative Normal Negativemg /dL [facility] UA Auto SS Clarity (U) Clear (04/08/24 12:06 PM) Normal Clear [facility] UA Auto SS Color (U) Colorless 1 *ABN* (04/08/24 12:06 PM) Invalid Interpretation Code Yellow [facility] UA Auto SS Comment on above: Interpretive Data: M icroscopic readings are only performed on those samples that meet specific criteria set forth by [facility]. Glucose Ql (U) Negative Normal Negativemg /dL [facility] UA Auto SS Hemoglobin Auto test strip (U) [Mass/Vol] Negative Normal Negativemg /dL [facility] UA Auto SS Ketones Auto test strip Ql (U) Negative Normal Negativemg /dL [facility] UA Auto SS Leukocyte esterase Auto test strip Ql (U) Negative Normal NegativeLe u/uL [facility] UA Auto SS Nitrite Auto test strip Ql (U) Negative Normal Negativemg /dL [facility] UA Auto SS pH (U) 7.0 *NA* (04/08/24 12:06 PM) Invalid Interpretation Code 5.0 - 9.0 [facility] UA Auto SS Protein Ql (U) Negative Normal Negativemg /dL [facility] UA Auto SS Specific gravity (U) [Rel density] 1.003 *NA* (04/08/24 12:06 PM) Invalid Interpretation Code 1.005 - 1.030 [facility] UA Auto SS Urobilinogen (U) [Mass/Vol] Negative Normal Negativemg /dL [facility] UA Auto SS URINALYSISOrdered By: Malick Ho on 04-08-2024 UA Spec Desc Clean Catch (04/08/24 12:06 PM) Normal [facility] UA Auto SS Work Phone: ED Clinical Summaryon 2023 ED Clinical Summary ED Clinical Summary [place] [address] ED Clinical Summary Person [facility]: [facility] Age[facility] 74 Years : 1950 Sex: Female Language: Dutch PCP: AZUL GORMAN CNP Marital Status: Visit Id: Visit Reason: Back pain; Dysuria; POSS UTI Speciality: Acuity: 3 Enc Type: Emergency Med Service: Emergency Arrival: 04/07/2024 16:36:24 Discharge: 04/07/2024 18:14:39 LOS: 000 01:38 Checkin: 04/07/2024 16:36:24 Checkout: 04/07/2024 18:14:39 Dispo Type: Home (Routine DC) EVENTS: Event Name Event Status Request Date/Time Start Date/Time Complete Date/Time Arrive Complete 04/07/2024 16:36:24 04/07/2024 16:36:24 04/07/2024 16:36:24 Document Home Meds Request 04/07/2024 16:36:24 Triage Complete 04/07/2024 16:36:24 04/07/2024 16:54:20 04/07/2024 16:54:20 Registration Complete 04/07/2024 16:40:00 04/07/2024 16:40:00 04/07/2024 16:40:00 Reg Complete Request 04/07/2024 16:40:00 Reg Bed Request Complete 04/07/2024 16:40:00 04/07/2024 16:40:00 04/07/2024 16:40:00 Bed Assign Complete 04/07/2024 16:45:50 04/07/2024 16:45:50 04/07/2024 16:45:50 Dr Exam Complete 04/07/2024 16:45:50 04/07/2024 16:47:28 04/07/2024 16:47:28 RN Exam Complete 04/07/2024 16:45:50 04/07/2024 17:50:55 04/07/2024 17:50:55 Registration Request 04/07/2024 16:47:28 Isolation Screening Request 04/07/2024 16:54:20 30 Day Return Request 04/07/2024 16:54:20 Patient Care Request 04/07/2024 16:54:53 Pending Labs Complete 04/07/2024 16:54:53 04/07/2024 17:38:46 Discharge Complete 04/07/2024 17:48:25 04/07/2024 18:14:46 04/07/2024 18:14:46 Transfer Complete 04/07/2024 18:14:46 04/07/2024 18:14:46 04/07/2024 18:14:46 ADDRESS: [address] [facility] [id number] [facility] DOC NOTES: MEDICAL INFORMATION: Prescriptions Given: Medications to Continue with No Changes Other Medications amlodipine (amLODIPine 5 mg Tab) 1 Tablets By Mouth every day. TAKE 1 TABLET BY MOUTH EVERY DAY. celecoxib (celecoxib 200 mg Cap) TAKE 1 CAPSULE BY MOUTH EVERY DAY. clonazepam (clonazepam 1 mg Tab) 1 Tablets By Mouth 3 times a day. TAKE 1 TABLET BY MOUTH THREE TIMES A DAY NEEDED FOR ANXIETY. Refills: 0. docusate (Colace 100 mg Cap) 1 Capsules By Mouth 2 times a day. Hold for diarrhea. Refills: 0. donepezil (donepezil 5 mg Tab) 1 Tablets By Mouth once a day (at bedtime). Ensure (Ensure Vanilla) Drink 1 bottle (8 fl. oz.) BID. Refills: 5. escitalopram (escitalopram 5 mg oral tablet) 1 Tablets By Mouth every day. fluticasone nasal (fluticasone 0.05 mg/inh Nasal [place]) 2 Sprays Nasal Inhalation every day. each nostril. Refills: 5. loratadine (loratadine 10 mg oral capsule) 1 Capsules By Mouth every day. olanzapine (olanzapine 7.5 mg oral tablet) 1 Tablets By Mouth once a day (at bedtime). ondansetron (ondansetron 4 mg Dis Tab) 1 Tablets By Mouth every 6 hours as needed Nausea/Vomiting. Refills: 0. ondansetron (Zofran ODT 4 mg Tab-Dis) 1 Tablets By Mouth 3 times a day as needed Nausea. Refills: 1. pantoprazole (Pantoprazole [address] Tab) TAKE 1 TABLET BY MOUTH EVERY DAY. phenazopyridine (phenazopyridine 200 mg Tab) 1 Tablets By Mouth after meals. polyethylene glycol 3350 (Miralax 17 gram packet) 17 Gram By Mouth every day. potassium chloride (potassium chloride 10 mEq Cap-ER) 1 Capsules By Mouth every other day. Refills: 2. senna (Senokot 8.6 mg Tab) 2 Tablets By Mouth once a day (at bedtime) as needed for constipation. Refills: 1. sodium chloride 2 gram By Mouth 3 times a day. sulfamethoxazole-trimethop rim (sulfamethoxazole-trimetho prim 400 mg-80 mg Tab) trazodone (traZODONE 150 mg Tab) 1 Tablets By Mouth once a day (at bedtime). Do not give with clonazepam. Refills: 3. PATIENT EDUCATION INFORMATION: Instructions: Dysuria Follow up: With: Address: When: [place] [id number] [facility] ([employer] In 3 days 04/10/2024 Comments: Return to the emergency room if your symptoms get worse, fever, vomiting or any new symptoms DIAGNOSIS: 1:Dysuria Normal [facility] ED Note-Physicianon 04-07-20 ED Note-Physician ED Note-Physician Basic Information Time Seen: Didier Hooks M.D. 04/07/2024 16:47 Chief Complaint dribbling urine was on atb but lost bottle. urine stinks. seen in ED yesterday. back pain, chronic but a little worse. History of Present Illness The patient is 74-year-old female with past frequent UTIs chronic kidney disease, COPD, hypertension, who presented to the emergency room for possible bladder infection. The patient states she has been having some burning with urination and frequency with urination. She thinks she has urinary tract infection. She is complaining of lower back pain. The patient denies any abdominal pain. She denies any fever, denies any chills. The patient denies any nausea or vomiting. The patient states that she was prescribed Macrobid by her primary doctor, however she lost the bottle. She states she has not had any antibiotics today. The patient denies any other associated symptoms. Review of Systems Additional ROS info: Except as noted in the above Review of Systems and in the History of Present Illness all other systems have been reviewed and are negative or noncontributory. Physical Exam Vitals & Measurements T: 36.5 ???C(Oral) HR: 83(Peripheral) RR: 20 BP: 155/69 SpO2: 93% HT: 154 cm WT: 66.1 kg BMI: 27.87 General: alert, no acute distress Skin: warm, dry, Head: no trauma, normocephalic Neck: Trachea midline, no tenderness, supple Eye: normal conjunctiva, sclera clear ENMT: Oral mucosa moist, Cardiovascular: regular rate and rhythm Respiratory: Lungs CTA, respirations non labored, breath sounds equal, symmetrical Gastrointestinal: soft, non distended, no tenderness, no guarding, Back: No tenderness, Neurological: Alert and oriented, speech normal, no focal neuro deficits Psychiatric: cooperative, affect appropriate for age, Medical Decision Making MEDICAL DECISION MAKING Number and Complexity of Problems Differential Diagnosis: [] [facility] Data External documents reviewed: [] My EKG interpretation: [] My CT interpretation: [] My X-ray interpretation: [] My Ultrasound interpretation: [] Decision rules/scores evaluated: [] Discussed with: [] Treatment and Disposition ED Course: The patient presented with dysuria. She has history of frequent urinary tract infection. Her urine shows no infection. The patient is afebrile. Her abdomen is completely benign. Will discharge patient home follow-up with her primary care. She is instructed to return to the emergency room if her symptoms get worse, fever, vomiting or any new symptoms. Shared decision making: [] Code status: [] Assessment/Plan 1. Dysuria (R30.0: Dysuria) Orders: Bladder Scan UA with Cult Rflx Disposition Plan Patient Discharge Condition Stable Discharge Disposition Discharge home Discharge Prescription List Prescriptions No active prescription medications Follow-up With When Contact Information AZUL GORMAN In 3 days 04/10/2024 EST [address] [place] [address] Business (1) Additional Instructions: Return to the emergency room if your symptoms get worse, fever, vomiting or any new symptoms Patient Education Dysuria Problem List/Past Medical History Ongoing Acute UTI [...] Vitamin D deficiency Historical Accidental fall Agent Vinson ASTHMA Benzodiazepine withdrawal Bipolar disorder Callus of [...] HTN - Hypertension Hypertension Hypo-osmolality and or hyponatremia Hypokalemia Laryngitis Left hip pain multiple broken bones Neurogenic bladder Obesity Obesity due to excess calories Oral thrush Panic disorder with agoraphobia Physical deconditioning Right foot pain Seizure Smoker Procedure/Surgical History Urodynamics (07/06/2019), cysto w/ UD (more content not included)... Normal [facility] Comment on above: Result Comment: Elec tronically Signed By: Neva Newton, Didier Martins\.br\Date and Time Signed: 04/07/24 17:55 EST ED Patient Summaryon 024 ED Patient Summary ED Patient Summary [address] [address] Patient Discharge Instructions Person Information Name: MAEGAN DYE Age: 74 Years Arrival Date: 04/07/2024 16:36:24 Discharge Diagnosis: 1:Dysuria Primary Care Physician: AZUL GORMAN CNP Provider Information Primary Provider: Didier Hooks M.D. [employer] Set Up Operator Vertical:None The exam and treatment you received in the Emergency Department were for an urgent problem and are not intended as complete care. It is important that you follow up with a doctor, nurse practitioner, or physician???s assistant executive housekeeper for ongoing care. If your symptoms become worse or you do not improve as expected and you are unable to reach your usual health care provider, you should return to the Emergency Department. We are available 24 hours a day. MAEGAN DYE has been given the following list of patient education materials, prescriptions and follow-up instructions: Follow-up Instructions: With: Address: When: AZUL GORMAN [address] [place] [address] [facility] [place] [address] Business (1) In 3 days 04/10/2024 Comments: Return to the emergency room if your symptoms get worse, fever, vomiting or any new symptoms In the event that this physician does not participate in your insurance network, please consult with your insurance company to find a nearby participating provider. Patient Education Materials: Dysuria A MESSAGE TO ALL PATIENTS REGARDING OPIOIDS PRESCRIPTION OPIOIDS: WHAT YOU NEED TO KNOW Prescription opioids can be used to help relieve lfndgbja-uc-tdhihm pain and are often prescribed following a [...] as well, even when taken as directed: ??? Tolerance???meaning you might need to take more of the medication for the same pain relief ??? Physical dependence???meaning you have symptoms of withdrawal when a medication is stopped ??? Increased sensitivity to pain ??? Constipation ??? Nausea, vomiting, and dry mouth ??? Sleepiness and dizziness ??? Confusion ??? Depression ??? Low levels of testosterone that can result in lower sex drive, energy, and strength ??? Itching and sweating RISKS ARE GREATER WITH: ??? History of drug misuse, substance use disorder, or overdose ??? Mental health conditions (such as depression or anxiety) ??? Sleep apnea ??? Older age (65 years and older) ??? Avoid alcohol while taking prescription opioids. Also, unless specifically advised by your health care provider, medications to avoid include: ??? Benzodiazepines (such as Xanax or Valium) ??? Muscle relaxants (such as Soma or Flexeril) ??? Hypnotics (such as Ambien or Lunesta) ??? Other prescription opioids KNOW YOUR OPTIONS Talk to your health care provider about ways to manage your pain that don???t involve prescription opioids. Some of these options may actually work better and have fewer risks and side effects. Options may include: ??? Pain relievers such as acetaminophen, ibuprofen, and naproxen ??? Some medication that are also used for depression or seizures ??? Physical therapy and exercise ??? Cognitive behavioral therapy, a psychological, goal-directed approach, in which patients learn how to modify physical, behavioral, and emotional triggers of pain and stress. IF YOU ARE PRESCRIBED OPIOIDS FOR PAIN: ??? Never take opioids in greater amounts or more often than prescribed. ??? Follow up with your primary health care provider. o Work together to create a plan on how to manage your pain. o Talk about ways to help manage your pain that don???t involve prescription opioids. o Talk about any and all concerns and side effects. ??? Help prevent misuse and abuse o Never sell or share prescription opioids. o Never use another person???s prescription opioids. ??? Store prescription opioids in a secure place and out of reach of others (this may include visitors, children, friends, and family). ??? Safely dispose of unused prescription opioids: Find your community drug take-back program or your pharmacy mail-back program, or flush them down the toilet, following guidance from the Food and Drug Administration (www.fda.gov/Drugs/Resourc esForYou). ??? Visit www.cdc.gov/drugoverdose to learn about the risks of opioids abuse and overdose. ??? If you believe you (more content not included)... Normal [facility] UA with Cult Rflxon 04-07-20 24 Bilirubin Ql (U) Negative Normal Negative [facility] Comment on above: Performed By: #### 4 [id number] #### [facility] [address] [place] [address] Clarity (U) Clear Normal Clear [facility] Comment on above: Performed By: #### 4 [id number] #### [facility] [address] [place] [address] Color (U) Colorless Abnormal Yellow [facility] Comment on above: Result Comment: Micr oscopic readings are only performed on those samples that meet specific criteria set forth by [facility]. Performed By: #### 4 [id number] #### [facility] [address] [place] [address] Glucose Ql (U) Negative Normal Negative [facility] Comment on above: Performed By: #### 4 [id number] #### [facility] [address] [place] [address] Hemoglobin Auto test strip (U) [Mass/Vol] Negative Normal Negative [facility] Comment on above: Performed By: #### 4 [id number] #### [facility] [address] [place] [address] Ketones Auto test strip Ql (U) Negative Normal Negative [facility] Comment on above: Performed By: #### 4 [id number] #### [facility] [address] [place] [address] Leukocyte esterase Auto test strip Ql (U) Negative Normal Negative [facility] Comment on above: Performed By: #### 4 [id number] #### [facility] [address] [place] [address] Nitrite Auto test strip Ql (U) Negative Normal Negative [facility] Comment on above: Performed By: #### 4 [id number] #### [facility] [address] [place] [address] pH (U) 5.5 [pH] Invalid Interpretation Code 5.0-9.0 [facility] Comment on above: Performed By: #### 4 [id number] #### [facility] [address] [place] [address] Protein Ql (U) Negative Normal Negative [facility] Comment on above: Performed By: #### 4 [id number] #### [facility] [address] [place] [address] Specific gravity (U) [Rel density] 1.003 Invalid Interpretation Code 1.005-1.03 0 [facility] Comment on above: Performed By: #### 4 [id number] #### [facility] [address] [place] [id number] Urobilinogen (U) [Mass/Vol] Negative Normal Negative [facility] Comment on above: Performed By: #### 4 [id number] #### [facility] [address] [place] [address] Type of Urine collection method Clean Catch Normal [facility] Comment on above: Performed By: #### 4 [id number] #### [facility] [address] [place] [address] URINALYSISOrdered By: SYSTEM SYSTEM on 04-07-2024 Bilirubin Ql (U) Negative Normal Negativemg /dL [facility] UA Auto SS Clarity (U) Clear (04/07/24 5:29 PM) Normal Clear [facility] UA Auto SS Color (U) Colorless 1 *ABN* (04/07/24 5:29 PM) Invalid Interpretation Code Yellow [facility] UA Auto SS Comment on above: Interpretive Data: M icroscopic readings are only performed on those samples that meet specific criteria set forth by [facility]. Glucose Ql (U) Negative Normal Negativemg /dL [facility] UA Auto SS Hemoglobin Auto test strip (U) [Mass/Vol] Negative Normal Negativemg /dL [facility] UA Auto SS Ketones Auto test strip Ql (U) Negative Normal Negativemg /dL [facility] UA Auto SS Leukocyte esterase Auto test strip Ql (U) Negative Normal NegativeLe u/uL FT UA Auto SS Nitrite Auto test strip Ql (U) Negative Normal Negativemg /dL [facility] UA Auto SS pH (U) 5.5 *NA* (04/07/24 5:29 PM) Invalid Interpretation Code 5.0 - 9.0 FT UA Auto SS Protein Ql (U) Negative Normal Negativemg /dL [facility] UA Auto SS Specific gravity (U) [Rel density] 1.003 *NA* (04/07/24 5:29 PM) Invalid Interpretation Code 1.005 - 1.030 [facility] UA Auto SS Urobilinogen (U) [Mass/Vol] Negative Normal Negativemg /dL [facility] UA Auto SS URINALYSISOrdered By: Didier Hooks on 04-07-2024 UA Spec Desc Clean Catch (04/07/24 5:29 PM) Normal [facility] UA Auto SS BMPon 04-04-2024 Anion gap [Moles/Vol] 8 mmol/L Normal 6-16 [facility] Comment on above: Performed By: #### 2 [id number] #### [facility] [address] [place] [address] Calcium [Mass/Vol] 9.0 mg/dL Normal 8.9-11.1 [facility] Comment on above: Performed By: #### 2 [id number] #### [facility] [address] [place] [address] Chloride [Moles/Vol] 100 mmol/L Low 101-111 [facility] Comment on above: Performed By: #### 2 [id number] #### [facility] [address] [place] [address] CO2 [Moles/Vol] 34 mmol/L High 21-31 [facility] Comment on above: Performed By: #### 2 [id number] #### [facility] [address] [place] [address] Creatinine [Mass/Vol] 1.0 mg/dL Normal 0.5-1.3 [facility] Comment on above: Performed By: #### 2 [id number] #### [facility] [address] [place] [address] Glucose [Mass/Vol] 159 mg/dL Normal 55-199 [facility] Comment on above: Performed By: #### 2 [id number] #### [facility] [address] [place] [address] Potassium [Moles/Vol] 3.6 mmol/L Normal 3.5-5.3 [facility] Comment on above: Performed By: #### 2 [id number] #### [facility] [address] [place] [address] Sodium [Moles/Vol] 138 mmol/L Normal 135-145 [facility] Comment on above: Performed By: #### 2 [id number] #### [facility] [address] [place] [address] Urea nitrogen [Mass/Vol] 8 mg/dL Normal 5-21 [facility] Comment on above: Performed By: #### 2 [id number] #### [facility] [address] [place] [address] Urea nitrogen/Creatinine [Mass ratio] 8 No Units Low 10-20 [facility] Comment on above: Performed By: #### 2 [id number] #### [facility] [address] [place] [address] CBC w/ Auto Diffon 4 Basophils/100 WBC (Bld) 0.3 % Normal 0.0-2.0 [facility] Comment on above: Performed By: #### 2 [id number] #### [facility] [address] [place] [address] Basophils/Leukocytes Auto (Bld) [Pure # fraction] 0.0 E9/L Normal 0.0-0.2 [facility] Comment on above: Performed By: #### 2 [id number] #### [facility] [address] [place] [address] Eosinophils (Bld) [#/Vol] 0.2 E9/L Normal 0.0-0.5 [facility] Comment on above: Performed By: #### 2 [id number] #### [facility] [address] [place] [address] Eosinophils/100 WBC (Bld) 3.0 % Normal 0.0-8.0 [facility] Comment on above: Performed By: #### 2 [id number] #### [facility] [address] [place] [address] Erythrocyte distribution width (RBC) [Ratio] 13.5 % Normal 10.9-14.2 [facility] Comment on above: Performed By: #### 2 [id number] #### [facility] [address] [place] [address] Hematocrit (Bld) [Volume fraction] 38.9 % Normal 34.0-46.0 [facility] Comment on above: Performed By: #### 2 [id number] #### [facility] [address] [place] [address] Hemoglobin (Bld) [Mass/Vol] 12.8 g/dL Normal 12.0-16.0 [facility] Comment on above: Performed By: #### 2 [id number] #### [facility] [address] [place] [address] Lymphocytes (Bld) [#/Vol] 1.2 E9/L Normal 1.0-4.0 [facility] Comment on above: Performed By: #### 2 [id number] #### [facility] [address] [place] [address] Lymphocytes/100 WBC (Bld) 21.1 % Normal 14.0-50.0 [facility] Comment on above: Performed By: #### 2 [id number] #### [facility] [address] [place] [address] MCH (RBC) [Entitic mass] 29.5 pg Normal 27.0-34.0 [facility] Comment on above: Performed By: #### 2 [id number] #### [facility] [address] [place] [address] MCHC (RBC) [Mass/Vol] 32.9 g/dL Normal 31.4-36.0 [facility] Comment on above: Performed By: #### 2 [id number] #### [facility] [address] [place] [address] MCV (RBC) [Entitic vol] 89.8 fL Normal 80.0-100.0 [facility] Comment on above: Performed By: #### 2 [id number] #### [facility] [address] [place] [address] Monocytes (Bld) [#/Vol] 0.6 E9/L Normal 0.2-1.0 [facility] Comment on above: Performed By: #### 2 [id number] #### [facility] [address] [place] [address] Neutrophils (Bld) [#/Vol] 3.9 E9/L Normal 2.0-7.5 [facility] Comment on above: Performed By: #### 2 [id number] #### [facility] [address] [place] [address] Neutrophils/100 WBC (Bld) 66.0 % Normal 36.0-75.0 [facility] Comment on above: Performed By: #### 2 [id number] #### [facility] [address] [place] [address] Platelet mean volume (Bld) [Entitic vol] 7.2 fL Normal 6.4-10.8 [facility] Comment on above: Performed By: #### 2 [id number] #### [facility] [address] [place] [address] Platelets (Bld) [#/Vol] 198.0 E9/L Normal 150.0-500. 0 [facility] Comment on above: Performed By: #### 2 [id number] #### [facility] [address] [place] [address] RBC (Bld) [#/Vol] 4.3 E12/L Normal 4.3-5.9 [facility] Comment on above: Performed By: #### 2 [id number] #### [facility] [address] [place] [address] WBC corrected for nucl RBC Auto (Bld) [#/Vol] 5.9 E9/L Normal 4.0-11.0 [facility] Comment on above: Performed By: #### 2 [id number] #### [facility] [address] [place] [address] CHEMISTRYOrdered By: SYSTEM SYSTEM on 04-04-2024 Anion gap [Moles/Vol] 8 mmol/L Normal 6 - 16 mEq/L [facility] Calcium [Mass/Vol] 9.0 mg/dL Normal 8.9 - 11. 1 mg/dL [facility] Chloride [Moles/Vol] 100 mmol/L Low 101 - 1 11 mmol/L [facility] CO2 [Moles/Vol] 34 mmol/L High 21 - 31 mmol/L [facility] Creatinine [Mass/Vol] 1.0 mg/dL Normal 0.5 - 1.3 mg/dL [facility] eGFR 58 mL/min/1.73 m2 Low >=59mL/min /1.73 m2 [facility] Glucose [Mass/Vol] 159 mg/dL Normal 55 - 199 mg/dL [facility] Potassium [Moles/Vol] 3.6 mmol/L Normal 3.5 - 5.3 mmol/L [facility] Sodium [Moles/Vol] 138 mmol/L Normal 135 - 145 mmol/L [facility] Troponin HS 2.80 pg/mL Low 10.10 - 27.10 pg/mL [facility] Comment on above: Interpretive Data: T he 95% CI (Confidence Interval) PPV (Positive Predictive Value) for myocardial infarction in females is 38 pg/mL, in males 51 pg/mL. The results should be used in conjunction with clinical conditions of myocardial infarction. (Access High Sensitivity Troponin I Instructions For Use, Siobhan [place], December 2017) Urea nitrogen [Mass/Vol] 8 mg/dL Normal 5 - 21 mg/dL [facility] Urea nitrogen/Creatinine [Mass ratio] 8 mg/mg Low 10 - 20 [facility] ED Clinical Summaryon 2023 ED Clinical Summary ED Clinical Summary [address] [address] ED Clinical Summary Person Information Name: MAEGAN DYE/NewDarrius Age: 74 Years : 1950 Sex: Female Language: Dutch PCP: AZUL GORMAN CNP Marital Status: Phone: MRN: [id number] Visit Id: Visit Reason: Weakness or fatigue; Nausea; Dysuria; UNABLE TO URINATE, WEAKNESS Speciality: Acuity: 3 Enc Type: Emergency Med Service: Emergency Arrival: 04/04/2024 12:43:15 Discharge: 04/04/2024 15:21:02 LOS: 000 02:38 Checkin: 04/04/2024 12:43:15 Checkout: 04/04/2024 15:21:02 Dispo Type: Home (Routine DC) EVENTS: Event Name Event Status Request Date/Time Start Date/Time Complete Date/Time Arrive Complete 04/04/2024 12:43:15 04/04/2024 12:43:15 04/04/2024 12:43:15 Document Home Meds Request 04/04/2024 12:43:15 Triage Complete 04/04/2024 12:43:15 04/04/2024 13:00:30 04/04/2024 13:00:30 Registration Complete 04/04/2024 12:45:45 04/04/2024 12:45:45 04/04/2024 12:45:45 Reg Complete Request 04/04/2024 12:45:45 Reg Bed Request Complete 04/04/2024 12:45:45 04/04/2024 12:45:45 04/04/2024 12:45:45 Bed Assign Complete 04/04/2024 12:50:34 04/04/2024 12:50:34 04/04/2024 12:50:34 Dr Exam Complete 04/04/2024 12:50:34 04/04/2024 12:57:34 04/04/2024 12:57:34 RN Exam Complete 04/04/2024 12:50:34 04/04/2024 13:16:06 04/04/2024 13:16:06 Registration Request 04/04/2024 12:57:34 EKG Complete 04/04/2024 12:58:27 04/04/2024 13:06:13 Isolation Screening Request 04/04/2024 13:00:31 30 Day Return Request 04/04/2024 13:00:31 Dr Exam Complete 04/04/2024 13:01:39 04/04/2024 13:01:39 04/04/2024 13:01:39 Pending Labs Complete 04/04/2024 13:21:08 04/04/2024 14:17:54 Lab Complete 04/04/2024 13:21:08 04/04/2024 14:06:32 X-Ray Complete 04/04/2024 13:21:08 04/04/2024 13:25:00 04/04/2024 13:37:55 Wet Read Request 04/04/2024 13:37:55 Pending Labs Complete 04/04/2024 13:40:43 04/04/2024 13:40:43 04/04/2024 14:06:32 Lab Complete 04/04/2024 13:40:43 04/04/2024 13:40:43 04/04/2024 14:06:32 Pending Labs Complete 04/04/2024 14:11:52 04/04/2024 14:11:52 04/04/2024 14:11:52 Pending Labs Complete 04/04/2024 14:12:21 04/04/2024 14:12:21 04/04/2024 14:12:21 Discharge Complete 04/04/2024 14:50:19 04/04/2024 15:21:11 04/04/2024 15:21:11 Transfer Complete 04/04/2024 15:21:11 04/04/2024 15:21:11 04/04/2024 15:21:11 ADDRESS: [facility] [address] [facility] [phone] PHYS DOC NOTES: MEDICAL INFORMATION: Prescriptions Given: Medications to Continue with No Changes Other Medications amlodipine (amLODIPine 5 mg Tab) 1 Tablets By Mouth every day. TAKE 1 TABLET BY MOUTH EVERY DAY. celecoxib (celecoxib 200 mg Cap) TAKE 1 CAPSULE BY MOUTH EVERY DAY. clonazepam (clonazepam 1 mg Tab) 1 Tablets By Mouth 3 times a day. TAKE 1 TABLET BY MOUTH THREE TIMES A DAY NEEDED FOR ANXIETY. Refills: 0. docusate (Colace 100 mg Cap) 1 Capsules By Mouth 2 times a day. Hold for diarrhea. Refills: 0. donepezil (donepezil 5 mg Tab) 1 Tablets By Mouth once a day (at bedtime). Ensure (Ensure Vanilla) Drink 1 bottle (8 fl. oz.) BID. Refills: 5. escitalopram (escitalopram 5 mg oral tablet) 1 Tablets By Mouth every day. fluticasone nasal (fluticasone 0.05 mg/inh Nasal [place]) 2 Sprays Nasal Inhalation every day. each nostril. Refills: 5. loratadine (loratadine 10 mg oral capsule) 1 Capsules By Mouth every day. olanzapine (olanzapine 7.5 mg oral tablet) 1 Tablets By Mouth once a day (at bedtime). ondansetron (ondansetron 4 mg Dis Tab) 1 Tablets By Mouth every 6 hours as needed Nausea/Vomiting. Refills: 0. ondansetron (Zofran ODT 4 mg Tab-Dis) 1 Tablets By Mouth 3 times a day as needed Nausea. Refills: 1. pantoprazole (Pantoprazole [address] Tab) TAKE 1 TABLET BY MOUTH EVERY DAY. phenazopyridine (phenazopyridine 200 mg Tab) 1 Tablets By Mouth after meals. polyethylene glycol 3350 (Miralax 17 gram packet) 17 Gram By Mouth every day. potassium chloride (potassium chloride 10 mEq Cap-ER) 1 Capsules By Mouth every other day. Refills: 2. senna (Senokot 8.6 mg Tab) 2 Tablets By Mouth once a day (at bedtime) as needed for constipation. Refills: 1. sodium chloride 2 gram By Mouth 3 times a day. sulfamethoxazole-trimethop rim (sulfamethoxazole-trimetho prim 400 mg-80 mg Tab) trazodone (traZODONE 150 mg Tab) 1 Tablets By Mouth once a day (at bedtime). Do not give with clonazepam. Refills: 3. PATIENT EDUCATION INFORMATION: Instructions: Weakness Follow up: With: Address: When: [address] [place], [place] [id number] [employer] In 3 days 04/07/2024 DIAGNOSIS: Weakness Normal [facility] ED Note-Physicianon 04-04-20 ED Note-Physician ED Note-Physician Basic Information Time Seen: Vic BYRDMalick 04/04/2024 12:57 Chief Complaint states she is almost done with antibiotics and still believes she has a UTI. also c/o nausea and weakness. History of Present Illness 74-year-old female comes to the ED for evaluation of generalized weakness. She is concerned for UTI. She has a history of recurrent urinary tract infections with neurogenic bladder. She states she was recently with antibiotics but continues to have some urinary discomfort and generalized weakness and is worried for continued infection. She denies any fever, chills, nausea or vomiting. No cough, chest pain or shortness of breath. Review of Systems A 10 point review of systems is negative except as noted above. Medical and Surgical History: Reviewed and noted Social history: Lives at home Tobacco: Denies Physical Exam Vitals & Measurements T: 36.8 ???C(Oral) HR: 69(Monitored) RR: 15 BP: 125/63 SpO2: 93% HT: 154 cm WT: 66.1 kg BMI: 27.87 Nurses notes and vital signs reviewed and patient is not hypoxic. General: The patient appears well, resting comfortably. Skin: Warm, dry. Head: Atraumatic. Neck: No JVD. Eye: Normal conjunctiva. Ears, Nose, Mouth, and Throat: Moist mucous membranes. Cardiovascular: Strong distal pulses. Chest wall: Respiratory: Respirations are nonlabored. Back: Normal range of motion. Musculoskeletal: Normal ROM with no gross deformity. Gastrointestinal: Urological: Neurological: Awake and alert. No focal deficits. Follows commands. Psychiatric: Cooperative. Medical Decision Making Laboratory studies are reviewed and noted. EKG without ischemic changes. Chest x-ray of no acute infiltrates. Urinalysis without infection. With serial examination patient is requesting discharge home, and she will follow-up with her PCP. Patient was encouraged to return to the ED if symptoms worsen or change. Assessment/Plan Weakness (R53.1: Weakness) Orders: Basic Metabolic Panel CBC w/ Auto Diff eGFR Extra Blue Tube Extra SST Tube Troponin 0 Hr. UA with Cult Rflx XR Chest Single View Disposition Plan Patient Discharge Condition Disposition: Discharged home Condition: Improved and stable Counseled: Patient and/or family were counseled to workup, results, treatment plan and follow-up recommendations Discharge Prescription List Prescriptions No active prescription medications Follow-up With When Contact Information AZUL GORMAN In 3 days 04/07/2024 EST [address] [place] [address] [facility] (1) Additional Instructions: Patient Education Weakness Attestation I performed a substantive part of the MDM during the patient???s E/M visit. I personally made or approved the documented management plan and acknowledge its risk of complications. (Independent Interpretation) My (EKG/X-Ray/US/CT) interpretation as above. (Discussion) Management/test interpretation discussed with APC. This report was transcribed using voice recognition software. Every effort was made to ensure accuracy, however, inadvertently computerized senior licensing manager mistakes may be present. Appropriate healthcare PPE was used in evaluating this patient. Problem List/Past Medical History Ongoing Acute UTI [...] Vitamin D deficiency Historical Accidental fall Agent [place] ASTHMA Benzodiazepine withdrawal Bipolar disorder Callus of [...] HTN - Hypertension Hypertension Hypo-osmolality and or hyponatremia Hypokalemia Laryngitis Left hip pain multiple broken bones Neurogenic bladder Obesity Obesity due to excess calories Oral thrush Panic disorder with agoraphobia Physical deconditioning Right foot pain Seizure Smoker Procedure/Surgical History Urodynamics (07/06/2019), cysto w/ UD (more content not included)... Normal [facility] Comment on above: Result Comment: Elec tronically Signed By: Vic BYRD, Malick\.br\Date and Time Signed: 04/04/24 15:18 EST\.br\Electronically Co-Signed By: Didier Hooks M.D.\.br\Date and Time Co-Signed: 04/04/24 20:05 EST ED Patient Summaryon 024 ED Patient Summary ED Patient Summary [address] [address] Patient Discharge Instructions Person Information Name: MAEGAN DYE Age: 74 Years Arrival Date: 04/04/2024 12:43:15 Discharge Diagnosis: Weakness Primary Care Physician: AZUL GORMAN CNP Provider Information Primary Provider: Didier Hooks M.D. [employer] Set Up Operator Vertical:Malick Ho PA-C The exam and treatment you received in the Emergency Department were for an urgent problem and are not intended as complete care. It is important that you follow up with a doctor, nurse practitioner, or physician???s assistant executive housekeeper for ongoing care. If your symptoms become worse or you do not improve as expected and you are unable to reach your usual health care provider, you should return to the Emergency Department. We are available 24 hours a day. MAEGAN DYE has been given the following list of patient education materials, prescriptions and follow-up instructions: Follow-up Instructions: With: Address: When: AZUL GORMAN [address] [place] [id number] Business (1) In 3 days 04/07/2024 In the event that this physician does not participate in your insurance network, please consult with your insurance company to find a nearby participating provider. Patient Education Materials: Weakness A MESSAGE TO ALL PATIENTS REGARDING OPIOIDS PRESCRIPTION OPIOIDS: WHAT YOU NEED TO KNOW Prescription opioids can be used to help relieve edbeyhmy-tr-tyzoym pain and are often prescribed following a [...] as well, even when taken as directed: ??? Tolerance???meaning you might need to take more of the medication for the same pain relief ??? Physical dependence???meaning you have symptoms of withdrawal when a medication is stopped ??? Increased sensitivity to pain ??? Constipation ??? Nausea, vomiting, and dry mouth ??? Sleepiness and dizziness ??? Confusion ??? Depression ??? Low levels of testosterone that can result in lower sex drive, energy, and strength ??? Itching and sweating RISKS ARE GREATER WITH: ??? History of drug misuse, substance use disorder, or overdose ??? Mental health conditions (such as depression or anxiety) ??? Sleep apnea ??? Older age (65 years and older) ??? Avoid alcohol while taking prescription opioids. Also, unless specifically advised by your health care provider, medications to avoid include: ??? Benzodiazepines (such as Xanax or Valium) ??? Muscle relaxants (such as Soma or Flexeril) ??? Hypnotics (such as Ambien or Lunesta) ??? Other prescription opioids KNOW YOUR OPTIONS Talk to your health care provider about ways to manage your pain that don???t involve prescription opioids. Some of these options may actually work better and have fewer risks and side effects. Options may include: ??? Pain relievers such as acetaminophen, ibuprofen, and naproxen ??? Some medication that are also used for depression or seizures ??? Physical therapy and exercise ??? Cognitive behavioral therapy, a psychological, goal-directed approach, in which patients learn how to modify physical, behavioral, and emotional triggers of pain and stress. IF YOU ARE PRESCRIBED OPIOIDS FOR PAIN: ??? Never take opioids in greater amounts or more often than prescribed. ??? Follow up with your primary health care provider. o Work together to create a plan on how to manage your pain. o Talk about ways to help manage your pain that don???t involve prescription opioids. o Talk about any and all concerns and side effects. ??? Help prevent misuse and abuse o Never sell or share prescription opioids. o Never use another person???s prescription opioids. ??? Store prescription opioids in a secure place and out of reach of others (this may include visitors, children, friends, and family). ??? Safely dispose of unused prescription opioids: Find your community drug take-back program or your pharmacy mail-back program, or flush them down the toilet, following guidance from the Food and Drug Administration (www.fda.gov/Drugs/Resourc esForYou). ??? Visit www.cdc.gov/drugoverdose to learn about the risks of opioids abuse and overdose. ??? If you believe you may be struggling with addiction, tell your health health care aide and ask for guidance (more content not included)... Normal [facility] Extra Blueon 04-04-2024 Tube Collected Plasma Yes Invalid Interpretation Code [facility] Comment on above: Performed By: #### 1 [id number] #### [facility] [address] [place] [address] HEMATOLOGYOrdered By: SYSTEM SYSTEM on 04-04-2024 Basophils/100 WBC (Bld) 0.3 % Normal 0.0 - 2.0 % Remisol Heme Basophils/Leukocytes Auto (Bld) [Pure # fraction] 0.0 E9/L Normal 0.0 - 0.2 E9/L Remisol Heme Eosinophils (Bld) [#/Vol] 0.2 E9/L Normal 0.0 - 0.5 E9/L Remisol Heme Eosinophils/100 WBC (Bld) 3.0 % Normal 0.0 - 8.0 % Remisol Heme Erythrocyte distribution width (RBC) [Ratio] 13.5 % Normal 10.9 - 14.2 % Remisol Heme Hematocrit (Bld) [Volume fraction] 38.9 % Normal 34.0 - 46.0 % Remisol Heme Hemoglobin (Bld) [Mass/Vol] 12.8 g/dL Normal 12.0 - 16.0 gm/dL Remisol Heme Lymphocytes (Bld) [#/Vol] 1.2 E9/L Normal 1.0 - 4.0 E9/L Remisol Heme Lymphocytes/100 WBC (Bld) 21.1 % Normal 14.0 - 50.0 % Remisol Heme MCH (RBC) [Entitic mass] 29.5 pg Normal 27.0 - 34.0 pg Remisol Heme MCHC (RBC) [Mass/Vol] 32.9 g/dL Normal 31.4 - 36.0 gm/dL Remisol Heme MCV (RBC) [Entitic vol] 89.8 fL Normal 80.0 - 100.0 fL Remisol Heme Monocytes (Bld) [#/Vol] 0.6 E9/L Normal 0.2 - 1.0 E9/L Remisol Heme Monocytes/100 WBC (Bld) 9.6 % Normal 4.0 - 14.0 % Remisol Heme Neutrophils (Bld) [#/Vol] 3.9 E9/L Normal 2.0 - 7.5 E9/L Remisol Heme Neutrophils/100 WBC (Bld) 66.0 % Normal 36.0 - 75.0 % Remisol Heme Platelet mean volume (Bld) [Entitic vol] 7.2 fL Normal 6.4 - 10.8 fL Remisol Heme Platelets (Bld) [#/Vol] 198.0 E9/L Normal 150.0 - 500.0 E9/L Remisol Heme RBC (Bld) [#/Vol] 4.3 E12/L Normal 4.3 - 5.9 E12/L Remisol Heme WBC corrected for nucl RBC Auto (Bld) [#/Vol] 5.9 E9/L Normal 4.0 - 11.0 E9/L Remisol Heme Troponin 0 Hr.on 04-04-2024 Troponin HS 2.80 pg/mL Low 10.10-27.1 0 [facility] Comment on above: Result Comment: The 95% CI (Confidence Interval) PPV (Positive Predictive Value) for myocardial infarction in females is 38 pg/mL, in males 51 pg/mL. The results should be used in conjunction with clinical conditions of myocardial infarction. (Access High Sensitivity Troponin I Instructions For Use, Siobhan [place], December 2017) Performed By: #### 1 [id number] #### [facility] [address] [place] [address] UA with Cult Rflxon 04-04-20 24 Bilirubin Ql (U) Negative Normal Negative [facility] Comment on above: Performed By: #### 4 [id number] #### [facility] [address] [place] [address] Clarity (U) Clear Normal Clear [facility] Comment on above: Performed By: #### 4 [id number] #### [facility] [address] [place] [address] Color (U) Light-Yellow Normal Yellow [facility] Comment on above: Result Comment: Micr oscopic readings are only performed on those samples that meet specific criteria set forth by [facility]. Performed By: #### 4 [id number] #### [facility] [address] [place] [address] Glucose Ql (U) Negative Normal Negative [facility] Comment on above: Performed By: #### 4 [id number] #### [facility] [address] [place] [address] Hemoglobin Auto test strip (U) [Mass/Vol] Negative Normal Negative [facility] Comment on above: Performed By: #### 4 [id number] #### [facility] [address] [place] [address] Ketones Auto test strip Ql (U) Negative Normal Negative [facility] Comment on above: Performed By: #### 4 [id number] #### [facility] [address] [place] [address] Leukocyte esterase Auto test strip Ql (U) Negative Normal Negative [facility] Comment on above: Performed By: #### 4 [id number] #### [facility] [address] [place] [address] Nitrite Auto test strip Ql (U) Negative Normal Negative [facility] Comment on above: Performed By: #### 4 [id number] #### [facility] [address] [place] [address] pH (U) 6.0 [pH] Invalid Interpretation Code 5.0-9.0 [facility] Comment on above: Performed By: #### 4 [id number] #### [facility] [address] [place] [address] Protein Ql (U) Negative Normal Negative [facility] Comment on above: Performed By: #### 4 [id number] #### [facility] [address] [place] [address] Specific gravity (U) [Rel density] 1.007 Invalid Interpretation Code 1.005-1.03 0 [facility] Comment on above: Performed By: #### 4 [id number] #### [facility] [address] [place] [address] Urobilinogen (U) [Mass/Vol] Negative Normal Negative [facility] Comment on above: Performed By: #### 4 [id number] #### [facility] [address] [place] [address] Type of Urine collection method Clean Catch Normal [facility] Comment on above: Performed By: #### 4 [id number] #### [facility] [address] [place] [address] URINALYSISOrdered By: SYSTEM SYSTEM on 04-04-2024 Bilirubin Ql (U) Negative Normal Negativemg /dL [facility] UA Auto SS Clarity (U) Clear (04/04/24 1:26 PM) Normal Clear [facility] UA Auto SS Color (U) Light-Yellow 1 (04/04/24 1:26 PM) Normal Yellow [facility] UA Auto SS Comment on above: Interpretive Data: M icroscopic readings are only performed on those samples that meet specific criteria set forth by [facility]. Glucose Ql (U) Negative Normal Negativemg /dL [facility] UA Auto SS Hemoglobin Auto test strip (U) [Mass/Vol] Negative Normal Negativemg /dL FT UA Auto SS Ketones Auto test strip Ql (U) Negative Normal Negativemg /dL FT UA Auto SS Leukocyte esterase Auto test strip Ql (U) Negative Normal NegativeLe u/uL FT UA Auto SS Nitrite Auto test strip Ql (U) Negative Normal Negativemg /dL [facility] UA Auto SS pH (U) 6.0 *NA* (04/04/24 1:26 PM) Invalid Interpretation Code 5.0 - 9.0 [facility] UA Auto SS Protein Ql (U) Negative Normal Negativemg /dL [facility] UA Auto SS Specific gravity (U) [Rel density] 1.007 *NA* (04/04/24 1:26 PM) Invalid Interpretation Code 1.005 - 1.030 [facility] UA Auto SS Urobilinogen (U) [Mass/Vol] Negative Normal Negativemg /dL [facility] UA Auto SS URINALYSISOrdered By: Malick Ho on 04-04-2024 UA Spec Desc Clean Catch (04/04/24 1:26 PM) Normal [facility] UA Auto SS Work Phone: XR Chest Single Viewon 04-04 XR Chest Single View Exam Date/Time: 04/04/2024 13:37 EST Reason for Exam: Shortness of breath (SOB) Report IMPRESSION: NO RADIOGRAPHIC EVIDENCE OF ACUTE INTRATHORACIC PROCESS. EXAM: XR Chest Single View History: Shortness of breath Technique: Portable AP view of the chest. Comparison: 03/14/2024 radiograph Findings: The patient is rotated. The cardiomediastinal silhouette is within normal limits. No pneumothorax, pleural effusion, or consolidation. Hyperinflation of the lungs and increased bronchovascular markings suggesting COPD. No acute osseous abnormality. Ordering Provider: Malick Ho FINAL REPORT Dictated: 04/04/2024 2:21 pm Skyler Khalil DO Signed (Electronic Signature): 04/04/2024 2:21 pm Signed by: Skyler Khalil DO Transcribed by: GLORIA Technologist: AVA Technical Comments Radiation Dose: Ka,r in mGy = . DAP = . Normal [facility] eGFRon 04-04-2024 eGFR 58 mL/min/1.73 m2 Low >=59 [facility] Comment on above: Performed By: #### 1 [id number] #### [facility] [address] [place] [address] Urine Cultureon 03-31-2024 Bacteria identified Cx Nom (U) Reason for Exam Acute UTI Urine >100,000 colonies/ml mixed bacterial skin contaminants including mixed gram negative bacilli - 2 Days PERFORMED BY: [facility] [address] [place] [address] PATHOLOGIST BRAKE OPERATOR HEAVY DUTY CORIE SILVA M.D. Normal [facility] Comment on above: Performed By: #### C UU, ADDONUAPLUS #### [facility] [address] [place] [address] [facility] ED Clinical Summaryon 2023 ED Clinical Summary ED Clinical Summary [address] [address] ED Clinical Summary Person Information Name: MAEGAN DYE/Raul Age: 74 Years : 1950 Sex: Female Language: Dutch PCP: AZUL GORMAN CNP Marital Status: Phone: [phone] Visit Id: Visit Reason: Catheter check; CATH. FELL OUT Speciality: Acuity: 3 Enc Type: Emergency Med Service: Emergency Arrival: 03/18/2024 15:50:15 Discharge: 03/18/2024 17:17:46 LOS: 000 01:27 Checkin: 03/18/2024 15:50:15 Checkout: 03/18/2024 17:17:46 Dispo Type: Home (Routine DC) EVENTS: Event Name Event Status Request Date/Time Start Date/Time Complete Date/Time Arrive Complete 03/18/2024 15:50:15 03/18/2024 15:50:15 03/18/2024 15:50:15 Document Home Meds Request 03/18/2024 15:50:15 Triage Complete 03/18/2024 15:50:15 03/18/2024 16:01:27 03/18/2024 16:01:27 Registration Complete 03/18/2024 15:54:46 03/18/2024 15:54:46 03/18/2024 15:54:46 Reg Complete Request 03/18/2024 15:54:46 Reg Bed Request Complete 03/18/2024 15:54:46 03/18/2024 15:54:46 03/18/2024 15:54:46 Isolation Screening Request 03/18/2024 16:01:27 30 Day Return Request 03/18/2024 16:01:27 Bed Assign Complete 03/18/2024 16:22:28 03/18/2024 16:22:28 03/18/2024 16:22:28 Dr Exam Complete 03/18/2024 16:22:28 03/18/2024 16:22:40 03/18/2024 16:22:40 RN Exam Complete 03/18/2024 16:22:28 03/18/2024 16:31:15 03/18/2024 16:31:15 Registration Request 03/18/2024 16:22:40 Dr Exam Complete 03/18/2024 16:25:37 03/18/2024 16:25:37 03/18/2024 16:25:37 Patient Care Request 03/18/2024 16:39:56 Patient Care Request 03/18/2024 16:39:57 Pending Labs Request 03/18/2024 16:39:57 Discharge Complete 03/18/2024 17:00:57 03/18/2024 17:17:51 03/18/2024 17:17:51 Transfer Complete 03/18/2024 17:17:51 03/18/2024 17:17:51 03/18/2024 17:17:51 ADDRESS: [facility] [address] [facility] [id number] PHYS DOC NOTES: MEDICAL INFORMATION: Prescriptions Given: Medications to Continue with No Changes Other Medications amlodipine (amLODIPine 5 mg Tab) 1 Tablets By Mouth every day. TAKE 1 TABLET BY MOUTH EVERY DAY. amoxicillin-clavulanate (amoxicillin-clavulanate 875 mg-125 mg Tab) 1 Tablets By Mouth 2 times a day for 6 Days. Refills: 0. celecoxib (celecoxib 200 mg Cap) TAKE 1 CAPSULE BY MOUTH EVERY DAY. clonazepam (clonazepam 1 mg Tab) 1 Tablets By Mouth 3 times a day. TAKE 1 TABLET BY MOUTH THREE TIMES A DAY NEEDED FOR ANXIETY. Refills: 0. docusate (Colace 100 mg Cap) 1 Capsules By Mouth 2 times a day. Hold for diarrhea. Refills: 0. donepezil (donepezil 5 mg Tab) 1 Tablets By Mouth once a day (at bedtime). Ensure (Ensure Vanilla) Drink 1 bottle (8 fl. oz.) BID. Refills: 5. escitalopram (escitalopram 5 mg oral tablet) 1 Tablets By Mouth every day. fluticasone nasal (fluticasone 0.05 mg/inh Nasal Mulberry) 2 Sprays Nasal Inhalation every day. each nostril. Refills: 5. loratadine (loratadine 10 mg oral capsule) 1 Capsules By Mouth every day. olanzapine (olanzapine 7.5 mg oral tablet) 1 Tablets By Mouth once a day (at bedtime). ondansetron (ondansetron 4 mg Dis Tab) 1 Tablets By Mouth every 6 hours as needed Nausea/Vomiting. Refills: 0. ondansetron (Zofran ODT 4 mg Tab-Dis) 1 Tablets By Mouth 3 times a day as needed Nausea. Refills: 1. pantoprazole (Pantoprazole [address] Tab) TAKE 1 TABLET BY MOUTH EVERY DAY. phenazopyridine (phenazopyridine 200 mg Tab) 1 Tablets By Mouth after meals. polyethylene glycol 3350 (Miralax 17 gram packet) 17 Gram By Mouth every day. potassium chloride (potassium chloride 10 mEq Cap-ER) 1 Capsules By Mouth every other day. Refills: 2. senna (Senokot 8.6 mg Tab) 2 Tablets By Mouth once a day (at bedtime) as needed for constipation. Refills: 1. sodium chloride 2 gram By Mouth 3 times a day. sulfamethoxazole-trimethop rim (sulfamethoxazole-trimetho prim 400 mg-80 mg Tab) trazodone (traZODONE 150 mg Tab) 1 Tablets By Mouth once a day (at bedtime). Do not give with clonazepam. Refills: 3. PATIENT EDUCATION INFORMATION: Instructions: Choi Catheter Care, Female-[facility] (Custom) Follow up: With: Address: When: AZUL Cortez [place] [phone] Business (1) In 3 days DIAGNOSIS: 1:Problem with Choi catheter Normal [facility] ED Note-Nursingon 03-18-2024 ED Note-Nursing ED Note-Nursing pt refused choi at this time. sandy cotton made aware. Normal [facility] ED Note-Nursing ED Note-Nursing pt peed with no complications. no need for choi catheter. Normal [facility] ED Note-Physicianon 03-18-20 ED Note-Physician ED Note-Physician Basic Information Time Seen: Ana Layton PA-C 03/18/2024 16:22 Chief Complaint Pt presents to ED after choi catheter fell out last night. History of Present Illness 74-year-old female presents ER with concern for Choi catheter problem. Patient reports that she was recently discharged from the hospital, states that yesterday her Choi catheter fell out overnight and she needs it replaced. No other symptoms. No pain. Review of Systems All organ systems are reviewed. Pertinent positive and negative findings as mentioned in the HPI. Physical Exam Vitals & Measurements T: 37.1 ???C(Oral) HR: 66(Monitored) RR: 18 BP: 120/69 SpO2: 97% HT: 154.94 cm WT: 66.1 kg BMI: 27.53 GENERAL APPEARANCE: Well developed, well nourished, alert and cooperative, and appears to be in no acute distress. HEAD: normocephalic, atraumatic EYES: PERRL, EOMI. Vision is grossly intact. EARS: External auditory canals clear, hearing grossly intact. NOSE: No nasal discharge. THROAT: Oral cavity and pharynx normal. Oral mucosa moist. ABDOMEN: Positive bowel sounds. Soft, nondistended, nontender. No guarding or rebound. MUSCULOSKELETAL: Adequately aligned spine. ROM intact spine and extremities. No joint erythema or tenderness. NEUROLOGICAL: CN grossly intact. Strength and sensation symmetric and intact throughout. SKIN: Skin normal color, texture and turgor with no lesions or eruptions. Assessment/Plan 1. Problem with Choi catheter (T83.9XXA: Unspecified complication of genitourinary prosthetic device, implant and graft, initial encounter) Orders: Urinary Catheter Insertion 74-year-old female presents to the ER with concern for Choi catheter issue. In the ER patient is afebrile vital signs are stable, no acute distress. Patient's Choi catheter was accidentally dislodged last night, patient urinated twice in the ER without difficulty, she declines replacing the Choi catheter at this time. Concerns for urine attention were discussed, patient states that she does not want a catheter at this time. Patient anxious for discharge home, she is discharged home with instructions to follow PCP and urology. She is to return to the ER with any new worsening symptoms. Patient voices understanding and is agreeable to plan. Disposition Plan Patient Discharge Condition Improved, stable Discharge Disposition To home Discharge Prescription List Prescriptions No active prescription medications Follow-up With When Contact Information AZUL GORMAN In 3 days [address] [place] [address]- [facility] (1) Additional Instructions: Patient Education Choi Catheter Care, Female-[facility] (Custom) Attestation Patient was treated and evaluated by the Physician Project Intern. The attending physician was in the Emergency Department at all times and supervised care. The case was discussed with the attending physician and diagnostics were reviewed as needed. Problem List/Past Medical History Ongoing Acute UTI [...] Vitamin D deficiency Historical Accidental fall Agent Vinson ASTHMA Benzodiazepine withdrawal Bipolar disorder Callus of [...] HTN - Hypertension Hypertension Hypo-osmolality and or hyponatremia Hypokalemia Laryngitis Left hip pain multiple broken bones Neurogenic bladder Obesity Obesity due to excess calories Oral thrush Panic disorder with agoraphobia Physical deconditioning Right foot pain Seizure Smoker Procedure/Surgical History Urodynamics (07/06/2019), cysto w/ UD (07/05/2019), left femur ORIF w femoral cortical strut graft (10/04/2016), lt bipolar hemiarthroplasty (08/30/2016), Appendectomy, Cardiovascular stress test using pharmacologic stress agent, Cataract Surgery-Bilateral Eye, section, foot surgery right, I&D, muscle roberto (more content not included)... Normal [facility] Comment on above: Result Comment: Elec tronically Signed By: Ana Layton PA-C\.br\Date and Time Signed: 03/18/24 17:03 EDT\.br\Electronically Co-Signed By: Ana Layton PA-C\.br\Date and Time Co-Signed: 03/18/24 17:32 EDT\.br\Electronically Co-Signed By: Didier Hooks M.D.\.br\Date and Time Co-Signed: 03/18/24 17:35 EDT ED Patient Summaryon 024 ED Patient Summary ED Patient Summary [address] [address] Patient Discharge Instructions Person Information Name: MAEGAN DYE Age: 74 Years Arrival Date: 03/18/2024 15:50:15 Discharge Diagnosis: 1:Problem with Choi catheter Primary Care Physician: AZUL GORMAN CNP Provider Information Primary Provider: Didier Hooks M.D. Advanced [employer] Mill Set Up Operator Vertical:Ana Layton PA-C The exam and treatment you received in the Emergency Department were for an urgent problem and are not intended as complete care. It is important that you follow up with a doctor, nurse practitioner, or physician???s assistant executive housekeeper for ongoing care. If your symptoms become worse or you do not improve as expected and you are unable to reach your usual health care provider, you should return to the Emergency Department. We are available 24 hours a day. MAEGAN DYE has been given the following list of patient education materials, prescriptions and follow-up instructions: Follow-up Instructions: With: Address: When: AZUL GORMAN [address] [place], [place] [id number] [facility] (1) In 3 days In the event that this physician does not participate in your insurance network, please consult with your insurance company to find a nearby participating provider. Patient Education Materials: Choi Catheter Care, [facility] (Custom) A MESSAGE TO ALL PATIENTS REGARDING OPIOIDS PRESCRIPTION OPIOIDS: WHAT YOU NEED TO KNOW Prescription opioids can be used to help relieve giyzmrib-ng-xyoyjv pain and are often prescribed following a [...] as well, even when taken as directed: ??? Tolerance???meaning you might need to take more of the medication for the same pain relief ??? Physical dependence???meaning you have symptoms of withdrawal when a medication is stopped ??? Increased sensitivity to pain ??? Constipation ??? Nausea, vomiting, and dry mouth ??? Sleepiness and dizziness ??? Confusion ??? Depression ??? Low levels of testosterone that can result in lower sex drive, energy, and strength ??? Itching and sweating RISKS ARE GREATER WITH: ??? History of drug misuse, substance use disorder, or overdose ??? Mental health conditions (such as depression or anxiety) ??? Sleep apnea ??? Older age (65 years and older) ??? Avoid alcohol while taking prescription opioids. Also, unless specifically advised by your health care provider, medications to avoid include: ??? Benzodiazepines (such as Xanax or Valium) ??? Muscle relaxants (such as Soma or Flexeril) ??? Hypnotics (such as Ambien or Lunesta) ??? Other prescription opioids KNOW YOUR OPTIONS Talk to your health care provider about ways to manage your pain that don???t involve prescription opioids. Some of these options may actually work better and have fewer risks and side effects. Options may include: ??? Pain relievers such as acetaminophen, ibuprofen, and naproxen ??? Some medication that are also used for depression or seizures ??? Physical therapy and exercise ??? Cognitive behavioral therapy, a psychological,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 Auto (Bld) [#/Vol] 5.0 E9/L Normal 4.0 - 11.0 E9/L Remisol Heme Interdisciplinary Note - Maximus e Manageron 03-15-2024 Interdisciplinary Note - Train Clerk Interdisciplinary Note - Train Clerk CRM to room 301 Patient is awake, alert and oriented. Patient Son lives with her and helps take care of her. Her PCP, DME and insurance was verified. Patient signed IMM on 03/14. This gets reviewed. Patient is here as inpatient with a Fall. She has a UTI and urine cx is positive. Patient is on oxygen 2L/NC, she does not wear at home. She will need weaned or desat. Patient is assigned to Dr Garcia, see notes. Patient has a cane and shower chair at home. Son is inquiring about grab bars and small rollator. Patient declines HH care or PM. Interested in passport services if she qualifies. Patient was provided CRM contact, roya board updated. CRM following DC date TBD, CRM will get updates at 10 AM Therapy recs HH VS no needs Normal [facility] Comment on above: Result Comment: Elec tronically Signed By: Latasha Hernández\.br\Date and Time Signed: 03/15/24 11:49 EDT Interdisciplinary Note - Ryland n 03-15-2024 Interdisciplinary Note - OT Interdisciplinary Note - OT OT [facility] six clicks score = HH services vs no further needs at DC. Patient requires Close sup w/ standing adls and transfers. Pt is limited by abd. pain and lethargy this date. Inpatient OT services to follow 3d/wk to improve Ind w/ standing adls/transfers as medical status improves. Normal [facility] eGFRon 03-15-2024 eGFR 58 mL/min/1.73 m2 Low >=59 [facility] Comment on above: Performed By: #### 1 [id number] ####[facility] [id number] [place] [address] ABO/Rhon 03-14-2024 ABO/Rh Positive Invalid Interpretation Code [facility] Comment on above: Performed By: #### 2 [id number] #### [facility] Laboratory [address] [place] [address] ABO/Rh History Checkon 03-14 ABO/Rh History Check Verified Hx Blood Type Normal [facility] Comment on above: Performed By: #### 1 [id number] #### [facility] Laboratory [address] [place] [address] ABSCon 03-14-2024 ABSC Gel Interp Negative Normal [facility] Comment on above: Performed By: #### 1 [id number] ####[facility] [id number] [place] [address] BLOOD BANKOrdered By: Luis Trotter on 03-14-2024 ABO/Rh Interp Positive Invalid Interpretation Code [facility] BB Subsection ABSC Gel Interp Negative (03/14/24 5:19 AM) Normal [facility] BB Subsection BMPon 03-14-2024 Anion gap [Moles/Vol] 9 mmol/L Normal 6-16 [facility] Comment on above: Performed By: #### 2 [id number] #### [facility] Laboratory [address] [place] [address] Calcium [Mass/Vol] 9.0 mg/dL Normal 8.9-11.1 [facility] Comment on above: Performed By: #### 2 [id number] #### [facility] Laboratory [address] [place] [address] Chloride [Moles/Vol] 100 mmol/L Low 101-111 [facility] Comment on above: Performed By: #### 2 [id number] #### [facility] Laboratory [address] [place] [address] CO2 [Moles/Vol] 33 mmol/L High 21-31 [facility] Comment on above: Performed By: #### 2 [id number] #### [facility] Laboratory [address] [place] [address] Creatinine [Mass/Vol] 1.2 mg/dL Normal 0.5-1.3 [facility] Comment on above: Performed By: #### 2 [id number] #### [facility] Laboratory [address] [place] [address] Glucose [Mass/Vol] 125 mg/dL Normal 55-199 [facility] Comment on above: Performed By: #### 2 [id number] #### [facility] Laboratory [address] [place] [address] Potassium [Moles/Vol] 4.5 mmol/L Normal 3.5-5.3 [facility] Comment on above: Performed By: #### 2 [id number] #### [facility] [address] [place] [address] Sodium [Moles/Vol] 137 mmol/L Normal 135-145 [facility] Comment on above: Performed By: #### 2 [id number] #### [facility] [address] [place] [address] Urea nitrogen [Mass/Vol] 11 mg/dL Normal 5-21 [facility] Comment on above: Performed By: #### 2 [id number] #### [facility] [address] [place] [address] Urea nitrogen/Creatinine [Mass ratio] 9 No Units Low 10- [facility] Comment on above: Performed By: #### 2 [id number] #### [facility] Laboratory [address] [place] [address] Blood Bank ID#on 03-14-2024 BBID# [id number] Invalid Interpretation Code [facility] Comment on above: Performed By: #### 1 [id number] #### [facility] Laboratory [address] [place] [id number] C Urineon 03-14-2024 Bacteria identified Cx Nom (U) Microbiology PROCEDURE: Urine Culture [R1] SOURCE: U Cath BODY SITE: COLLECTED DATE/TIME: 03/12/2024 13:55 EDT RECEIVED DATE/TIME: 03/12/2024 14:10 EDT START DATE/TIME: 03/12/2024 14:11 EDT FREE TEXT SOURCE: cath SYSTEM, SYSTEM SYSTEM, SYSTEM FINAL REPORTS Final Report [] Verified Date/Time: 03/14/2024 11:31 EDT 20,000 cfu/ml Enterococcus faecium 3,000 cfu/ml Enterococcus faecalis 3,000 cfu/ml Klebsiella pneumoniae SUSCEPTIBILITY RESULTS _ LEGEND: S=Susceptible, N/R=Not Reported, Blank=Data not available, or drug not advisable or tested, I=Intermediate, ESBL=Extended spectrum beta-lactamase, R=Resistant, TFG=Thymidine-dependent strain, ANAY=Beta-lactamase positive, REINALDO=mcg/m;(mg/L), S*=Predicted susceptible interp, R*=Predicted resistant interp Entfaeci Entfaeca Klepne Antibiotic REINALDO Dilutn REINALDO Interp REINALDO Dilutn REINALDO Interp REINALDO Dilutn REINALDO Interp Ampicillin 4 S <=2 S >16 R Ampicillin/ <=8/4 S Sulbactam Aztreonam <=4 S Cefazolin <=2 S Cefepime <=2 S Ceftazidime <=1 S Ceftazidime/ <=8 S Avibactam Ceftriaxone <=1 S Cefuroxime <=4 S Ciprofloxacin >2 R <=1 S 0.5 I Daptomycin 4 S <=1 S Ertapenem <=0.5 S Gentamicin <=2 S Levofloxacin 4 I <=1 S 1 I Linezolid <=2 S <=2 S Meropenem <=1 S Nitrofurantoin 64 I <=32 S <=32 S Penicillin >8 R 2 S Piperacillin/ <=8 S Tazobactam Rifampin >2 R >2 R Tetracycline >8 R >8 R <=4 S Tobramycin <=2 S Trimethoprim/ >2/38 R Sulfa Vancomycin <=0.5 S <=0.5 S Performing Locations R1: This test was performed at: [facility], [address] [place] [address], [id number] , , [facility] Comment on above: Performed By: #### 2 [id number] #### [facility] Laboratory [address] [place] [address] CBC w/ Auto Diffon 10-20-202 4 Basophils/100 WBC (Bld) 0.7 % Normal 0.0-2.0 [facility] Comment on above: Performed By: #### 2 [id number] #### [facility] Laboratory [address] [place] [address] Basophils/Leukocytes Auto (Bld) [Pure # fraction] 0.0 E9/L Normal 0.0-0.2 [facility] Comment on above: Performed By: #### 2 [id number] #### [facility] [address] [place] [address] Eosinophils (Bld) [#/Vol] 0.1 E9/L Normal 0.0-0.5 [facility] Comment on above: Performed By: #### 2 [id number] #### [facility] [address] [place] [address] Eosinophils/100 WBC (Bld) 2.1 % Normal 0.0-8.0 [facility] Comment on above: Performed By: #### 2 [id number] #### [facility] [address] [place] [address] Erythrocyte distribution width (RBC) [Ratio] 13.3 % Normal 10.9-14.2 [facility] Comment on above: Performed By: #### 2 [id number] #### [facility] [address] [place] [address] Hematocrit (Bld) [Volume fraction] 36.8 % Normal 34.0-46.0 [facility] Comment on above: Performed By: #### 2 [id number] #### [facility] [address] [place] [address] Hemoglobin (Bld) [Mass/Vol] 12.2 g/dL Normal 12.0-16.0 [facility] Comment on above: Performed By: #### 2 [id number] #### [facility] [address] [place] [address] Lymphocytes (Bld) [#/Vol] 1.1 E9/L Normal 1.0-4.0 [facility] Comment on above: Performed By: #### 2 [id number] #### [facility] [address] [place] [address] Lymphocytes/100 WBC (Bld) 15.4 % Normal 14.0-50.0 [facility] Comment on above: Performed By: #### 2 [id number] #### [facility] [address] [place] [address] MCH (RBC) [Entitic mass] 29.5 pg Normal 27.0-34.0 [facility] Comment on above: Performed By: #### 2 [id number] #### [facility] [address] [place] [address] MCHC (RBC) [Mass/Vol] 33.0 g/dL Normal 31.4-36.0 [facility] Comment on above: Performed By: #### 2 [id number] #### [facility] [address] [place] [address] MCV (RBC) [Entitic vol] 89.1 fL Normal 80.0-100.0 [facility] Comment on above: Performed By: #### 2 [id number] #### [facility] [address] [place] [address] Monocytes (Bld) [#/Vol] 0.5 E9/L Normal 0.2-1.0 [facility] Comment on above: Performed By: #### 2 [id number] #### [facility] [address] [place] [address] Neutrophils (Bld) [#/Vol] 5.2 E9/L Normal 2.0-7.5 [facility] Comment on above: Performed By: #### 2 [id number] #### [facility] [address] [place] [address] Neutrophils/100 WBC (Bld) 75.0 % Normal 36.0-75.0 [facility] Comment on above: Performed By: #### 2 [id number] #### [facility] [address] [place] [address] Platelet 244.0 E9/L Normal 150.0-500. 0 [facility] Comment on above: Performed By: #### 2 [id number] #### [facility] [address] [place] [address] Platelet mean volume (Bld) [Entitic vol] 7.4 fL Normal 6.4-10.8 [facility] Comment on above: Performed By: #### 2 [id number] #### [facility] [address] [place] [address] RBC (Bld) [#/Vol] 4.1 E12/L Low 4.3-5.9 [facility] Comment on above: Performed By: #### 2 [id number] #### [facility] [address] [place] [address] WBC corrected for nucl RBC Auto (Bld) [#/Vol] 6.9 E9/L Normal 4.0-11.0 [facility] Comment on above: Performed By: #### 2 [id number] #### [facility] [address] [place] [address] CHEMISTRYOrdered By: SYSTEM SYSTEM on 03-14-2024 Albumin [Mass/Vol] 3.9 g/dL Normal 3.3 - 5.0 gm/dL Remisol Chem Albumin/Globulin [Mass ratio] 1.4 {ratio} Normal 1.1 - 2.2 Remisol Chem ALP [Catalytic activity/Vol] 99 [iU]/d High 21 - 98 Int._Unit/ L Remisol Chem ALT No additional P-5'-P [Catalytic activity/Vol] 6 [iU]/d Normal 6 - 46 Int._Unit/ L Remisol Chem Anion gap [Moles/Vol] 9 mmol/L Normal 6 - 16 mEq/L Remisol Chem AST [Catalytic activity/Vol] 15 [iU]/d Normal 5 - 43 Int._Unit/ L Remisol Chem Bilirubin [Mass/Vol] 0.5 mg/dL Normal 0.0 - 1 .1 mg/dL Remisol Chem Bilirubin.direct [Mass/Vol] 0.1 mg/dL Normal 0.0 - 0.4 mg/dL Remisol Chem Bilirubin.indirect [Mass or moles/Vol] 0.4 mg/dL Normal 0.1 - 0.9 mg/dL Remisol Chem Calcium [Mass/Vol] 9.0 mg/dL Normal 8.9 - 11. 1 mg/dL Remisol Chem Chloride [Moles/Vol] 100 mmol/L Low 101 - 1 11 mmol/L Remisol Chem CO2 [Moles/Vol] 33 mmol/L High 21 - 31 mmol/L Remisol Chem Creatinine [Mass/Vol] 1.2 mg/dL Normal 0.5 - 1.3 mg/dL Remisol Chem eGFR 47 mL/min/1.73 m2 Low >=59mL/min /1.73 m2 Remisol Chem Globulin (S) [Mass/Vol] 2.7 g/dL Normal 1.4 - 4.0 gm/dL Remisol Chem Glucose [Mass/Vol] 125 mg/dL Normal 55 - 199 mg/dL Remisol Chem Lactic Acid Lvl 1.1 mmol/L Normal 0.5 - 2.2 mmol/L Remisol Chem Lipase [Catalytic activity/Vol] 12 U/L Low 13 - 58 unit/L Remisol Chem Potassium [Moles/Vol] 4.5 mmol/L Normal 3.5 - 5.3 mmol/L Remisol Chem Protein [Mass/Vol] 6.6 g/dL Normal 6.0 - 7.8 gm/dL Remisol Chem Sodium [Moles/Vol] 137 mmol/L Normal 135 - 145 mmol/L Remisol Chem Troponin HS 4.10 pg/mL Low 10.10 - 27.10 pg/mL Remisol Chem Comment on above: Interpretive Data: T he 95% CI (Confidence Interval) PPV (Positive Predictive Value) for myocardial infarction in females is 38 pg/mL, in males 51 pg/mL. The results should be used in conjunction with clinical conditions of myocardial infarction. (Access High Sensitivity Troponin I Instructions For Use, Siobhan [place], December 2017) Urea nitrogen [Mass/Vol] 11 mg/dL Normal 5 - 21 mg/dL Remisol Chem Urea nitrogen/Creatinine [Mass ratio] 9 mg/mg Low 10 - 20 Remisol Chem COAGULATIONOrdered By: Luis Trotter on 03-14-2024 aPTT Coag (PPP) [Time] 22.3 s Low 25.1 - 36.5 second(s) [facility] Auto Coag Comment on above: Interpretive Data: Palmer dior 15 days - 4 weeks 1 - 5 months 6 - 11 months 1 - 5 years 6 - 10 years 11 - 17 years PTT Mean: 35.4 (27.6-45.6) Mean: 33.5 (24.8-40.7) Mean: 32.4 (25.1-40.7) Mean: 31.6 (24.0-39.2) Mean: 31.6 (26.9-38.7) Mean: 31.0 (24.6-38.4) Pediatric Reference ranges were obtained from a study by berhane Norman prepared from 1437 samples obtained at 7 different centers using the same coagulation reagent and instrumentation as [facility]. Currently there are no coagulation studies available worldwide for children to 14 days, and no normal ranges. Heparin therapeutic range (represented by Anti-Factor Xa activity of 0.2 - 0.4 U/mL) corresponds to PTT of 56.6 - 109.0 sec. INR Coag (PPP) [Relative time] 0.94 {INR} Invalid Interpretation Code [facility] Auto Coag Comment on above: Interpretive Data: I NR results are specifically intended to assess patients stabilized on long-term Anticoagulation therapy suggested INR s Less Intensive Anticoagulation 2.0 3.0 Conventional Range 3.0 4.5 PT Coag (PPP) [Time] 10.5 s Normal 9.4 - 1 2.5 second(s) [facility] Comment on above: Interpretive Data: 1 5 days - 4 weeks 1 - 5 months 6 -11 months 1 5 years 6 10 years 11 -17 years Mean: 11.2 (9.5 12.6) Mean: 11.0 (9.7 12.8) Mean: 11.0 (9.8 13.0) Mean: 11.3 (9.9 13.4) Mean: 11.7 (10.0 14.6) Mean: 11.8 (10.0 - 14.1) Pediatric Reference ranges were obtained from a study by berhane Norman prepared from 1437 samples obtained at 7 different centers using the same coagulation reagent and instrumentation as [facility]. Currently there are no coagulation studies available worldwide for children to 14 days, and no normal ranges. CT Head or Brain w/o Contras ton 03-14-2024 CT Head or Brain w/o Contrast Exam Date/Time: 03/14/2024 07:00 EDT Reason for Exam: HEAD TRAUMA, MOD-SEVERE;Other (please specify) Report Impression: No acute intracranial process. CT brain without intravenous contrast medium. History: Fall wall walking bathroom.. Technical factors: CT imaging of the brain was obtained and formatted as 5 mm contiguous axial images. 2.5 mm contiguous axial images were obtained through the osseous structures. Sagittal and coronal reconstruction obtained during postprocessing. Comparison: 02/01/2023.. Findings: Extra-axial spaces: Normal. Intracranial hemorrhage: None. Ventricular system: Without anomaly. Basal Cisterns: Normal. Cerebral Parenchyma: Without anomaly. Midline Shift: None. Cerebellum: Normal. Paranasal sinuses and mastoid air cells: Normal. Visualized Orbits: Normal. Remote bilateral ocular surgery. All CT scans at this facility use dose modulation, iterative reconstruction, and/or weight based dosing when appropriate to reduce radiation dose to as low as reasonably achievable. Report Ordering Provider: Santiago Harrington FINAL REPORT Dictated: 03/14/2024 1:36 pm Chucho Gandara MD Signed (Electronic Signature): 03/14/2024 1:36 pm Signed by: Chucho Gandara MD Transcribed by: GLORIA Technologist: MELISSA Murray [facility] CT Maxillofacial w/o Emilymikey vizcarra 03-14-2024 CT Maxillofacial w/o Contrast Exam Date/Time: 03/14/2024 07:00 EDT Reason for Exam: Trauma Report Impression: No acute intracranial process. CT maxillofacial without intravenous contrast medium. History: Fall.. Technical factors: CT maxillofacial was obtained and formatted formatted as 2 mm contiguous axial images. Sagittal and coronal reconstruction obtained during postprocessing. Comparison: 02/01/2022.. Findings: Bilateral frontal, ethmoid, sphenoid, and maxillary sinuses are patent. Imaged portions mastoid air cells well pneumatized. Nasal septum midline. Bilateral ostiomeatal complexes patent. Edentulous. No fracture. Bone lesions. Bilateral ocular globes, extraocular muscles, optic nerves, retrobulbar fat without anomaly. All CT scans at this facility use dose modulation, iterative reconstruction, and/or weight based dosing when appropriate to reduce radiation dose to as low as reasonably achievable. Ordering Provider: Santiago Harrington FINAL REPORT Dictated: 03/14/2024 1:39 pm Chucho Gandara MD Signed (Electronic Signature): 03/14/2024 1:39 pm Signed by: Chucho Gandara MD Transcribed by: GLORIA Technologist: MELISSA Aranda [facility] CT Spine Cervical w/o Contra ston 03-14-2024 CT Spine Cervical w/o Contrast Exam Date/Time: 03/14/2024 07:00 EDT Reason for Exam: NECK TRAUMA, DANGEROUS INJURY MECHANISM;Trauma Report IMPRESSION: NO FRACTURE. NO MALALIGNMENT. MULTILEVEL DEGENERATIVE CHANGE CERVICAL SPINE. CT CERVICAL SPINE WITHOUT INTRAVENOUS CONTRAST MEDIUM. HISTORY: Trauma, NECK TRAUMA, DANGEROUS INJURY MECHANISM TECHNICAL FACTORS: CT cervical spine obtained and formatted as 2.5 mm contiguous axial images from skull base to the level of. Sagittal and coronal reconstructions were obtained during postprocessing. No contrast medium was utilized. COMPARISON: CT cervical spine, 02/01/2022. FINDINGS: Cervical vertebral bodies are normal in height and alignment. Loss of cervical lordosis. Atlantooccipital articulation maintained. Atlantoaxial interval preserved. Neural foraminal narrowing, left C3-C4, bilateral C4-C5, bilateral C5-C6, bilateral C6-C7.. Disc disc space narrowing C5-C6, and C6-C7. Posterior osteophytes C6. Hyperostosis anterior C2 unchanged. No fractures, dislocations, bone lesions. Limited imaging lung apices without anomaly. Carotid arteries and soft tissues are without anomaly. All CT scans at this facility use dose modulation, iterative reconstruction, and/or weight based dosing when appropriate to reduce radiation dose to as low as reasonably achievable. Report Ordering Provider: Santiago Harrington FINAL REPORT Dictated: 03/14/2024 1:23 pm Chucho Gandara MD Signed (Electronic Signature): 03/14/2024 1:23 pm Signed by: Chucho Gandara MD Transcribed by: GLORIA Technologist: MELISSA Aranda [facility] ED Clinical Summaryon 2023 ED Clinical Summary ED Clinical Summary [address] [address] ED Clinical Summary Person Information Name: MAEGAN DYE/[place] Age: 74 Years : 1950 Sex: Female Language: Dutch PCP: AZUL GORMAN CNP Marital Status: Phone: [phone] Visit Id: Visit Reason: Closed head injury without LOC; Jaw pain; Fall; FELL HIT FACE Speciality: Acuity: 3 Enc Type: Inpatient Med Service: Medical Arrival: 03/14/2024 04:51:11 Discharge: LOS: 000 05:21 Checkin: 03/14/2024 04:51:11 Checkout: 03/14/2024 10:12:11 Dispo Type: Admitted as IP to this [facility] EVENTS: Event Name Event Status Request Date/Time Start Date/Time Complete Date/Time Arrive Complete 03/14/2024 04:51:11 03/14/2024 04:51:11 03/14/2024 04:51:11 Document Home Meds Request 03/14/2024 04:51:11 Triage Complete 03/14/2024 04:51:11 03/14/2024 05:05:48 03/14/2024 05:05:48 Registration Complete 03/14/2024 04:57:43 03/14/2024 04:57:43 03/14/2024 04:57:43 Reg Complete Request 03/14/2024 04:57:43 Reg Bed Request Complete 03/14/2024 04:57:43 03/14/2024 04:57:43 03/14/2024 04:57:43 Dr Exam Complete 03/14/2024 05:01:28 03/14/2024 05:01:28 03/14/2024 05:01:28 Registration Complete 03/14/2024 05:01:28 03/14/2024 05:05:58 03/14/2024 09:38:15 Isolation Screening Request 03/14/2024 05:05:49 Bed Assign Complete 03/14/2024 05:05:58 03/14/2024 05:05:58 03/14/2024 05:05:58 RN Exam Complete 03/14/2024 05:05:58 03/14/2024 05:30:59 03/14/2024 05:30:59 EKG Complete 03/14/2024 05:13:43 03/14/2024 05:54:35 NPO Request 03/14/2024 05:13:43 Pending Labs Complete 03/14/2024 05:13:43 03/14/2024 05:58:01 Lab Complete 03/14/2024 05:13:43 03/14/2024 05:55:31 RT Request 03/14/2024 05:13:43 Patient Care Request 03/14/2024 05:13:43 CT Complete 03/14/2024 05:13:43 03/14/2024 06:20:07 03/14/2024 07:00:32 Blood Collect Request 03/14/2024 05:13:43 X-Ray Complete 03/14/2024 05:13:43 03/14/2024 07:00:35 03/14/2024 07:01:01 Pending Labs Complete 03/14/2024 05:25:51 03/14/2024 05:25:51 03/14/2024 05:49:13 Lab Complete 03/14/2024 05:25:51 03/14/2024 05:25:51 03/14/2024 05:49:13 Fall Risk Request 03/14/2024 05:30:59 Trauma II Request 03/14/2024 05:47:28 Wet Read Request 03/14/2024 07:01:01 Discharge Cancel 03/14/2024 07:45:52 03/14/2024 09:37:10 Consult Request 03/14/2024 09:36:41 Hospitalist Consult Request 03/14/2024 09:36:41 Admit Request 03/14/2024 09:38:14 Patient Care Request 03/14/2024 09:38:15 Patient Care Request 03/14/2024 09:38:15 Patient Care Request 03/14/2024 09:38:16 Patient Care Request 03/14/2024 09:38:16 Medicare Form Complete 03/14/2024 09:38:17 03/14/2024 09:48:32 Patient Care Request 03/14/2024 09:38:17 Patient Care Request 03/14/2024 09:38:17 ADDRESS: [address] [facility] [phone] PHYS DOC NOTES: MEDICAL INFORMATION: Prescriptions Given: Medications to Continue Taking That Have Changed Other Medications START: nitrofurantoin (nitrofurantoin macrocrystals-monohydrate 100 mg Cap) 1 Capsules By Mouth 2 times a day. Refills: 0. Medications to Continue with No [...] 5. fluticasone nasal (fluticasone 0.05 mg/inh Nasal [place]) 2 Sprays Nasal Inhalation every day. each nostril. Refills: 5. Misc Prescription (Straight Catheters & Supplies) Use daily, as directed.. Refills: 5. Misc Prescription (walking boot) right foot knee high walking Size small boot dx m21.969, m14.679 Fax to [facility]. Refills: 0. multivitamin with minerals (Therapeutic Multiple Vitamins with Minerals Tab) By Mouth every day. mupirocin topical (mupirocin Top 2% Oint) 1 Application Topical 3 times a day. Refills: 0. ondansetron (ondansetron 4 mg Dis Tab) 1 Tablets By Mouth every 6 hours as needed Nausea/Vomiting. Refills: 0. ondansetron (Zofran ODT 4 mg Tab-Dis) 1 Tablets By Mouth 3 times a day as needed Nausea. Refills: 1. pantoprazole (Pantoprazole [address] Tab) TAKE 1 TABLET BY MOUTH EVERY DAY. phenazopyridine (Pyridium 200 mg Tab) 1 Tablets By Mouth 3 times a day for 3 Days. Refills: 0. polyethylene glycol 3350 (Miralax 17 gram packet) 17 Gram By Mouth every day. potassium chloride (potassium chloride 10 mEq Cap-ER) 1 Capsules By Mouth every other day. Refills: 2. senna (Senokot 8.6 mg Tab) 2 Tablets By Mouth once a day (at bedtime) as needed for constipation. Refills: (more content not included)... Normal [facility] ED Note-Physicianon 03-14-20 ED Note-Physician ED Note-Physician Basic Information Time Seen: Santiago Harrington DO 03/14/2024 05:01 Chief Complaint pt to ED with c/o fall while walking to bathroom. states tired and just was weak. was not using cane. denies LOC. c/o lower jaw/mouth pain. bleeding noted to mouth. pt denies SOB, CP. denies blood thinners. History of Present Illness HPI: Patient is a 74-year-old female with past medical history of bipolar, Charcot's foot, COPD, CKD, hypertension, hyperlipidemia, sleep apnea, PTSD, SIADH who presents to the ED with family member for fall. Patient states she got up to go to the bathroom and when she was in the bathroom had tried to get up and walk without her cane and fell forward hitting her face on the ground. She denies loss of consciousness. She denies blood thinners. She states that she has soreness in her jaw and her face as well as her upper neck and head. She denies any vision changes, numbness, weakness. ROS: Pertinent review of systems conducted and is negative except as noted above. Physical exam: General: nontoxic appearing and in no distress HEENT: Mucous membranes moist, No mojica sign, hemotympanum, or raccoon eyes. Neuro: awake and alert. GCS is 15. CN II - XII grossly intact, motor and sensation to the four extremities are grossly intact Neck: supple, trachea midline. No midline tenderness of the cervical spine. Card: Heart regular rate and rhythm no murmur Resp: Lungs clear to auscultation no wheeze or rhonchi. No flail chest or crepitus. Abd: Soft and nondistended. No tenderness with no rebound or guarding. Spine: No midline tenderness of the thoracic or lumbar spine. No palpable bony deformity. Pelvis: Stable to palpation. Ext: Right foot and ankle brace as well as left wrist brace present on arrival. No focal tenderness of the 4 extremities. Physical Exam Vitals & Measurements T: 36.8 ?C(Oral) HR: 80(Peripheral) RR: 18 BP: 128/80 SpO2: 90% HT: 154 cm WT: 65.3 kg BMI: 27.53 Medical Decision Making MEDICAL DECISION MAKING Number and Complexity of Problems Differential Diagnosis: [] [facility] Data External documents reviewed: N/A My EKG interpretation: Noted in chart if applicable My CT interpretation: N/A My X-ray interpretation: Noted in chart if applicable My Ultrasound interpretation: N/A Decision rules/scores evaluated: N/A Discussed with: N/A Treatment and Disposition ED Course: Patient is nontoxic-appearing in no distress. She does have some dried blood around her mouth with no open wounds that are visible. Will obtain CT imaging of the head neck and maxillofacial as well as a chest x-ray and blood work. Lab work is overall reassuring. CT imaging of the head neck and maxillofacial is all negative for acute traumatic process. Chest x-ray shows no significant change from previous. I discussed these findings with the patient at bedside. Discussed the plan of discharge with oral Tylenol as needed as well as ice. She will follow close with her primary care physician. Shared decision making: As above Code status: N/A Assessment/Plan Closed head injury (S09.90XA: Unspecified injury of head, initial encounter) Orders: ABO/Rh ABO/Rh History Check Antibody Screen Basic Metabolic Panel Blood Bank ID# CBC w/ Auto Diff CT Head or Brain w/o Contrast CT Maxillofacial w/o Contrast CT Spine Cervical w/o Contrast ECG 12 Lead Adult ED Cardiac Monitoring eGFR Hepatic Function Panel Lactic Acid Lipase Level NPO Diet Oxygen Therapy PT & PTT Pulse Oximetry Continuous Saline Lock Insert Troponin XR Chest Single View Disposition Plan Discharge Prescription List Prescriptions No active prescription medications Follow-up With When Contact Information AZUL GORMAN In 3 days [address] [place] [address]- Business (1) Additional Instructions: Patient Education Head Injury, Adult Problem List/Past Medical History Ongoing Acute UTI [...] Vitamin D deficiency Historical Accidental fall Agent [place] ASTHMA Benzodiazepine withdrawal Bipolar disorder Callus of foot Cerebral hemorrhage chronic back pain Chronic GERD Chronic kidney disease, stage 2 (mild) Chronic pain Closed fracture of base of skull (more content not included)... Normal [facility] Comment on above: Result Comment: Elec tronically Signed By: Didier Hooks M.D.\.br\Date and Time Signed: 03/14/24 11:02 EDT ED Patient Summaryon 024 ED Patient Summary ED Patient Summary [address] [address] Patient Discharge Instructions Person Information Name: MAEGAN DYE Age: 74 Years Arrival Date: 03/14/2024 04:51:11 Discharge Diagnosis: Closed head injury Primary Care Physician: AZUL GORMAN CNP Provider Information Primary Provider: Santiago Harrington DO [employer] Vertical:None The exam and treatment you received in the Emergency Department were for an urgent problem and are not intended as complete care. It is important that you follow up with a doctor, nurse practitioner, or physician?s assistant executive housekeeper for ongoing care. If your symptoms become worse or you do not improve as expected and you are unable to reach your usual health care provider, you should return to the Emergency Department. We are available 24 hours a day. MAEGAN DYE has been given the following list of patient education materials, prescriptions and follow-up instructions: Follow-up Instructions: With: Address: When: AZUL GORMAN [address] [place] [address] [place] [phone] Business (1) In 3 days In the event that this physician does not participate in your insurance network, please consult with your insurance company to find a nearby participating provider. Patient Education Materials: Head Injury, Adult A MESSAGE TO ALL PATIENTS REGARDING OPIOIDS PRESCRIPTION OPIOIDS: WHAT YOU NEED TO KNOW Prescription opioids can be used to help relieve vverelmu-js-fjxbek pain and are often prescribed following a [...] be struggling with addiction, tell your health health care aide and ask for guidance or call [facility]?S National Helpline at 2-213-281-ACKN. a Source: [place] Departmen (more content not included)... Normal [facility] HEMATOLOGYOrdered By: SYSTEM SYSTEM on 03-14-2024 Basophils/100 WBC (Bld) 0.7 % Normal 0.0 - 2.0 % Remisol Heme Basophils/Leukocytes Auto (Bld) [Pure # fraction] 0.0 E9/L Normal 0.0 - 0.2 E9/L Remisol Heme Eosinophils (Bld) [#/Vol] 0.1 E9/L Normal 0.0 - 0.5 E9/L Remisol Heme Eosinophils/100 WBC (Bld) 2.1 % Normal 0.0 - 8.0 % Remisol Heme Erythrocyte distribution width (RBC) [Ratio] 13.3 % Normal 10.9 - 14.2 % Remisol Heme Hematocrit (Bld) [Volume fraction] 36.8 % Normal 34.0 - 46.0 % Remisol Heme Hemoglobin (Bld) [Mass/Vol] 12.2 g/dL Normal 12.0 - 16.0 gm/dL Remisol Heme Lymphocytes (Bld) [#/Vol] 1.1 E9/L Normal 1.0 - 4.0 E9/L Remisol Heme Lymphocytes/100 WBC (Bld) 15.4 % Normal 14.0 - 50.0 % Remisol Heme MCH (RBC) [Entitic mass] 29.5 pg Normal 27.0 - 34.0 pg Remisol Heme MCHC (RBC) [Mass/Vol] 33.0 g/dL Normal 31.4 - 36.0 gm/dL Remisol Heme MCV (RBC) [Entitic vol] 89.1 fL Normal 80.0 - 100.0 fL Remisol Heme Monocytes (Bld) [#/Vol] 0.5 E9/L Normal 0.2 - 1.0 E9/L Remisol Heme Monocytes/100 WBC (Bld) 6.8 % Normal 4.0 - 14.0 % Remisol Heme Neutrophils (Bld) [#/Vol] 5.2 E9/L Normal 2.0 - 7.5 E9/L Remisol Heme Neutrophils/100 WBC (Bld) 75.0 % Normal 36.0 - 75.0 % Remisol Heme Platelet 244.0 E9/L Normal 150.0 - 500.0 E9/L Remisol Heme Platelet mean volume (Bld) [Entitic vol] 7.4 fL Normal 6.4 - 10.8 fL Remisol Heme RBC (Bld) [#/Vol] 4.1 E12/L Low 4.3 - 5.9 E12/L Remisol Heme WBC corrected for nucl RBC Auto (Bld) [#/Vol] 6.9 E9/L Normal 4.0 - 11.0 E9/L Remisol Heme Hep Func Panelon 03-14-2024 Albumin [Mass/Vol] 3.9 g/dL Normal 3.3-5.0 [facility] Comment on above: Performed By: #### 2 [id number] #### [facility] [address] [place] [address] Albumin/Globulin (S) [Mass conc ratio] 1.4 Normal 1.1-2.2 [facility] Comment on above: Performed By: #### 2 [id number] #### [facility] [address] [place] [address] ALP [Catalytic activity/Vol] 99 Int._Unit/L High 21-98 [facility] Comment on above: Performed By: #### 2 [id number] #### [facility] [address] [place] [address] ALT No additional P-5'-P [Catalytic activity/Vol] 6 Int._Unit/L Normal 6-46 [facility] Comment on above: Performed By: #### 2 [id number] #### [facility] [address] [place] [address] AST [Catalytic activity/Vol] 15 Int._Unit/L Normal 5-43 [facility] Comment on above: Performed By: #### 2 [id number] #### [facility] [address] [place] [address] Bilirubin [Mass/Vol] 0.5 mg/dL Normal 0.0-1.1 [facility] Comment on above: Performed By: #### 2 [id number] #### [facility] [address] [place] [address] Bilirubin.direct [Mass/Vol] 0.1 mg/dL Normal 0.0-0.4 [facility] Comment on above: Performed By: #### 2 [id number] #### [facility] [address] [place] [address] Bilirubin.indirect [Mass or moles/Vol] 0.4 mg/dL Normal 0.1-0.9 [facility] Comment on above: Performed By: #### 2 [id number] #### [facility] [address] [place] [address] Globulin (S) [Mass/Vol] 2.7 g/dL Normal 1.4-4.0 [facility] Comment on above: Performed By: #### 2 [id number] #### [facility] [address] [place] [address] Protein [Mass/Vol] 6.6 g/dL Normal 6.0-7.8 [facility] Comment on above: Performed By: #### 2 [id number] #### [facility] [address] [place] [address] Lactic Acidon 03-14-2024 Lactic Acid Lvl 1.1 mmol/L Normal 0.5-2.2 [facility] Comment on above: Performed By: #### 2 [id number] #### [facility] [address] [place] [address] Lipase Levelon 03-14-2024 Lipase [Catalytic activity/Vol] 12 U/L Low 13-58 [facility] Comment on above: Performed By: #### 2 [id number] #### [facility] [address] [place] [address] PT & PTTon 03-14-2024 aPTT Coag (PPP) [Time] 22.3 second(s) Low 25.1-36.5 [facility] Comment on above: Result Comment: Para meter 15 days - 4 weeks 1 - 5 months 6 - 11 months 1 - 5 years 6 - 10 years 11 - 17 years PTT Mean: 35.4 (27.6-45.6) Mean: 33.5 (24.8-40.7) Mean: 32.4 (25.1-40.7) Mean: 31.6 (24.0-39.2) Mean: 31.6 (26.9-38.7) Mean: 31.0 (24.6-38.4) Pediatric Reference ranges were obtained from a study by Thierno Brown et al. prepared from 1437 samples obtained at 7 different centers using the same coagulation reagent and instrumentation as [facility]. Currently there are no coagulation studies available worldwide for children to 14 days, and no normal ranges. Heparin therapeutic range (represented by Anti-Factor Xa activity of 0.2 - 0.4 U/mL) corresponds to PTT of 56.6 - 109.0 sec. Performed By: #### 1 [id number] #### [facility] [address] [place] [address] INR Coag (PPP) [Relative time] 0.94 {INR} Invalid Interpretation Code [facility] Comment on above: Result Comment: INR results are specifically intended to assess patients stabilized on long-term Anticoagulation therapy suggested INR?s ?Less Intensive Anticoagulation? 2.0 ? 3.0 Conventional Range 3.0 ? 4.5 Performed By: #### 1 [id number] #### [facility] [address] [place] [address] PT Coag (PPP) [Time] 10.5 second(s) Normal 9.4-12.5 [facility] Comment on above: Result Comment: 15 d ays - 4 weeks 1 - 5 months 6 -11 months 1 ? 5 years 6 ? 10 years 11 -17 years Mean: 11.2 (9.5 ? 12.6) Mean: 11.0 (9.7 ? 12.8) Mean: 11.0 (9.8 ? 13.0) Mean: 11.3 (9.9 ? 13.4) Mean: 11.7 (10.0 ? 14.6) Mean: 11.8 (10.0 - 14.1) Pediatric Reference ranges were obtained from a study by Thierno Brown et al. prepared from 1437 samples obtained at 7 different centers using the same coagulation reagent and instrumentation as [facility]. Currently there are no coagulation studies available worldwide for children to 14 days, and no normal ranges. Performed By: #### 1 [id number] #### [facility] [address] [place] [address] Troponinon 03-14-2024 Troponin HS 4.10 pg/mL Low 10.10-27.1 0 [facility] Comment on above: Result Comment: The 95% CI (Confidence Interval) PPV (Positive Predictive Value) for myocardial infarction in females is 38 pg/mL, in males 51 pg/mL. The results should be used in conjunction with clinical conditions of myocardial infarction. (Access High Sensitivity Troponin I Instructions For Use, Siobhan Prashant, December 2017) Performed By: #### 2 [id number] #### [facility] [address] [place] [address] XR Chest Single Viewon 03-14 XR Chest Single View Exam Date/Time: 03/14/2024 07:01 EDT Reason for Exam: Difficulty breathing Report IMPRESSION: NO ACUTE CARDIOPULMONARY DISEASE. CLINICAL HISTORY: Difficulty breathing COMPARISON: 01/12/2024 FINDINGS: Stable degenerative change right shoulder. Cardiopericardial silhouette is normal. Pulmonary vasculature is normal. Lungs are clear. Ordering Provider: Santiago Harrington FINAL REPORT Dictated: 03/14/2024 8:38 am Chucho Gandara MD Signed (Electronic Signature): 03/14/2024 8:38 am Signed by: Chucho Gandara MD Transcribed by: GLORIA Technologist: MLEISSA Technical Comments Radiation Dose: Ka,r in mGy = na DAP = na Normal [facility] eGFRon 03-14-2024 eGFR 47 mL/min/1.73 m2 Low >=59 [facility] Comment on above: Performed By: #### 1 [id number] #### [facility] [address] [place] [address] ED Clinical Summaryon 2023 ED Clinical Summary ED Clinical Summary [address] [address] ED Clinical Summary Person Information Name: MAEGAN DYE/[facility] Age: 74 Years : 1950 Sex: Female Language: Dutch PCP: AZUL GORMAN CNP Marital Status: Phone: [phone] Visit Id: Visit Reason: Dysuria; Back pain; Urinary retention; CAN'T URINATE Speciality: Acuity: 3 Enc Type: Emergency Med Service: Emergency Arrival: 03/12/2024 12:21:50 Discharge: 03/12/2024 16:28:46 LOS: 000 04:07 Checkin: 03/12/2024 12:21:50 Checkout: 03/12/2024 16:28:46 Dispo Type: Home (Routine DC) EVENTS: Event Name Event Status Request Date/Time Start Date/Time Complete Date/Time Arrive Complete 03/12/2024 12:21:50 03/12/2024 12:21:50 03/12/2024 12:21:50 Document Home Meds Request 03/12/2024 12:21:50 Triage Complete 03/12/2024 12:21:50 03/12/2024 12:41:46 03/12/2024 12:41:46 Bed Assign Complete 03/12/2024 12:34:35 03/12/2024 12:34:35 03/12/2024 12:34:35 Dr Exam Complete 03/12/2024 12:34:35 03/12/2024 12:39:59 03/12/2024 12:39:59 RN Exam Complete 03/12/2024 12:34:35 03/12/2024 13:43:29 03/12/2024 13:43:29 Registration Complete 03/12/2024 12:39:59 03/12/2024 12:47:10 03/12/2024 12:47:10 Isolation Screening Request 03/12/2024 12:41:47 Reg Complete Request 03/12/2024 12:47:10 Reg Bed Request Complete 03/12/2024 12:47:10 03/12/2024 12:47:10 03/12/2024 12:47:10 Dr Exam Complete 03/12/2024 12:48:31 03/12/2024 12:48:31 03/12/2024 12:48:31 Registration Request 03/12/2024 12:48:31 Patient Care Request 03/12/2024 13:46:40 Patient Care Request 03/12/2024 13:46:40 Pending Labs Complete 03/12/2024 13:46:41 03/12/2024 14:51:10 Pending Labs Inlab 03/12/2024 14:09:00 03/12/2024 14:09:00 Lab Inlab 03/12/2024 14:09:00 03/12/2024 14:09:00 Discharge Complete 03/12/2024 16:03:34 03/12/2024 16:28:51 03/12/2024 16:28:51 Transfer Complete 03/12/2024 16:28:51 03/12/2024 16:28:51 03/12/2024 16:28:51 ADDRESS: [address] [place] [address] [address] [facility] [phone] PHYS DOC NOTES: MEDICAL INFORMATION: Prescriptions Given: [...] 5. fluticasone nasal (fluticasone 0.05 mg/inh Nasal [place]) 2 Sprays Nasal Inhalation every day. each nostril. Refills: 5. Misc Prescription (Straight Catheters & Supplies) Use daily, as directed.. Refills: 5. Misc Prescription (walking boot) right foot knee high walking Size small boot dx m21.959, m14.219 Fax to [facility]. Refills: 0. multivitamin with minerals (Therapeutic Multiple Vitamins with Minerals Tab) By Mouth every day. mupirocin topical (mupirocin Top 2% Oint) 1 Application Topical 3 times a day. Refills: 0. nitrofurantoin (Macrobid 100 mg Cap) 1 Capsules By Mouth every 12 hours for 5 Days. Refills: 0. nitrofurantoin (nitrofurantoin macrocrystals-monohydrate 100 mg [...] TAKE 1 TABLET BY MOUTH EVERY DAY. phenazopyridine (Pyridium 200 mg Tab) 1 Tablets By Mouth 3 times a day for 3 Days. Refills: 0. polyethylene glycol 3350 (Miralax 17 gram packet) [...] clonazepam. Refills: 3. PATIENT EDUCATION INFORMATION: Instructions: Acute Urinary Retention, Female Follow up: With: Address: When: [place] [address] Business (1) In 3 days 03/15/2024 DIAGNOSIS: Chronic retention of urine Normal [facility] ED Note-Nursingon 03-12-2024 ED Note-Nursing ED Note-Nursing pt refusing urinary catheter at this time Normal [facility] ED Note-Nursing ED Note-Nursing bladder scan 666mL post void Normal [facility] ED Note-Nursing ED Note-Nursing bladder scanned pt - 706 mL Normal [facility] ED Note-Physicianon 03-12-20 ED Note-Physician ED Note-Physician Basic Information Time Seen: Malick Ho PA-C 03/12/2024 12:40 Chief Complaint pt unable to urinate. last time pt urinated was last night. pt states that she is bleeding as well but unsure of where it is coming. being treated for UTI. pt having burning and pain in the lower back. History of Present Illness 74-year-old female comes to the ED for evaluation of urinary retention. She has a history of chronic recurrent urinary retention due to neurogenic bladder. She has had 2 self cath at home in the past, but she states has not had to do that for a few months. She was recent started antibiotics for UTI. She states that throughout today she has been unable to urinate. No fever, chills, nausea or vomiting. She now has noted some blood in her urine. Review of Systems A 10 point review of systems is negative except as noted above. Medical and Surgical History: Reviewed and noted Social history: Lives at home Tobacco: Denies Physical Exam Vitals & Measurements T: 36.7 ?C(Oral) HR: 69(Peripheral) RR: 18 BP: 139/74 SpO2: 94% HT: 155 cm WT: 66 kg BMI: 27.47 Nurses notes and vital signs reviewed and patient is not hypoxic. General: The patient appears well, resting comfortably. Skin: Warm, dry. Head: Atraumatic. Neck: No JVD. Eye: Normal conjunctiva. Ears, Nose, Mouth, and Throat: Moist mucous membranes. Cardiovascular: Strong distal pulses. Chest wall: Respiratory: Respirations are nonlabored. Back: Normal range of motion. Musculoskeletal: Normal ROM with no gross deformity. Gastrointestinal: Soft and nontender Urological: Neurological: Awake and alert. No focal deficits. Follows commands. Psychiatric: Cooperative. Medical Decision Making Bladder scan showed 700 cc of retained urine. Choi catheter was placed by nursing. Urine is sent for culture. She is currently on antibiotics. She is discharged home to follow-up with her PCP and urologist. Patient was encouraged to return to the ED if symptoms worsen or change. Assessment/Plan Chronic retention of urine (R33.9: Retention of urine, unspecified) Orders: Urinary Catheter Insertion Disposition Plan Patient Discharge Condition Disposition: Discharged home Condition: Improved and stable Counseled: Patient and/or family were counseled to workup, results, treatment plan and follow-up recommendations Discharge Prescription List Prescriptions No active prescription medications Follow-up With When Contact Information AZUL VITA In 3 days 03/15/2024 EDT [address] [place] [address] [facility] (1) Additional Instructions: Patient Education Acute Urinary Retention, Female Attestation I performed a substantive part of the MDM during the patient?s E/M visit. I personally made or approved the documented management plan and acknowledge its risk of complications. (Independent Interpretation) My (EKG/X-Ray/US/CT) interpretation as above. (Discussion) Management/test interpretation discussed with APC. This report was transcribed using voice recognition software. Every effort was made to ensure accuracy, however, inadvertently computerized senior licensing manager mistakes may be present. Appropriate healthcare PPE was used in evaluating this patient. Problem List/Past Medical History Ongoing Acute UTI [...] Vitamin D deficiency Historical Accidental fall Agent Vinson ASTHMA Benzodiazepine withdrawal Bipolar disorder Callus of [...] HTN - Hypertension Hypertension Hypo-osmolality and or hyponatremia Hypokalemia Laryngitis Left hip pain multiple broken bones Neurogenic bladder Obesity Obesity due to excess calories Oral thrush Panic disorder with agoraphobia Physical deconditioning Right foot pain Seizure Smoker Procedure/Surgical History (more content not included)... Normal [facility] Comment on above: Result Comment: Elec tronically Signed By: Malick Ho PA-C\.br\Date and Time Signed: 03/12/24 17:37 EDT\.br\Electronically Co-Signed By: Didier Hooks M.D.\.br\Date and Time Co-Signed: 03/12/24 18:25 EDT ED Patient Summaryon 024 ED Patient Summary ED Patient Summary [place] [id number] Patient Discharge Instructions Person Information Name: MAEGAN DYE Age: 74 Years Arrival Date: 03/12/2024 12:21:50 Discharge Diagnosis: Chronic retention of urine Primary Care Physician: AZUL GORMAN CNP Provider Information Primary Provider: iDdier Hooks M.D. [employer] Set Up Operator Vertical:Malick Ho PA-C The exam and treatment you received in the Emergency Department were for an urgent problem and are not intended as complete care. It is important that you follow up with a doctor, nurse practitioner, or physician?s assistant executive housekeeper for ongoing care. If your symptoms become worse or you do not improve as expected and you are unable to reach your usual health care provider, you should return to the Emergency Department. We are available 24 hours a day. MAEGAN DYE has been given the following list of patient education materials, prescriptions and follow-up instructions: Follow-up Instructions: With: Address: When: AZUL GORMAN [address] [place] [address] [facility] [place] [address] Business (1) In 3 days 03/15/2024 In the event that this physician does not participate in your insurance network, please consult with your insurance company to find a nearby participating provider. Patient Education Materials: Acute Urinary Retention, Female A MESSAGE TO ALL PATIENTS REGARDING OPIOIDS PRESCRIPTION OPIOIDS: WHAT YOU NEED TO KNOW Prescription opioids can be used to help relieve pmitlfhm-mw-mtttxq pain and are often prescribed following a [...] be struggling with addiction, tell your health health care aide and ask for guidance or call [facility] Help (more content not included)... Normal [facility] URINALYSISOrdered By: SYSTEM SYSTEM on 03-12-2024 Bacteria Auto Ql (U) Trace /HPF Normal Trace/HPF [facility] UA Auto SS Bilirubin Ql (U) Negative Normal Negativemg /dL [facility] UA Auto SS Clarity (U) Clear (03/12/24 1:55 PM) Normal Clear [facility] UA Auto SS Color (U) Dark-Yellow 1 *ABN* (03/12/24 1:55 PM) Invalid Interpretation Code Yellow [facility] UA Auto SS Comment on above: Interpretive Data: M icroscopic readings are only performed on those samples that meet specific criteria set forth by [facility]. Epithelial cells.squamous Auto (Urine sed) [#/Area] 0-2 graded/HPF Invalid Interpretation Code [facility] UA Auto SS Glucose Ql (U) Negative Normal Negativemg /dL [facility] UA Auto SS Hemoglobin Auto test strip (U) [Mass/Vol] Negative Normal Negativemg /dL [facility] Auto SS Ketones Auto test strip Ql (U) Negative Normal Negativemg /dL [facility]A Auto SS Leukocyte esterase Auto test strip Ql (U) Negative Normal NegativeLe u/uL [facility] UA Auto SS Mucus Auto Ql (U) Negative Normal Negativegr aded/LPF [facility] UA Auto SS Nitrite Auto test strip Ql (U) 1+ mg/dL Invalid Interpretation Code Negativemg /dL [facility] UA Auto SS pH (U) 6.0 *NA* (03/12/24 1:55 PM) Invalid Interpretation Code 5.0 - 9.0 [facility] UA Auto SS Protein Ql (U) Negative Normal Negativemg /dL [facility] UA Auto SS RBC Ql (U) 0-3 graded/HPF Normal 0-3graded/ HPF [facility] UA Auto SS Specific gravity (U) [Rel density] 1.005 *NA* (03/12/24 1:55 PM) Invalid Interpretation Code 1.005 - 1.030 [facility] UA Auto SS Urobilinogen (U) [Mass/Vol] Negative Normal Negativemg /dL [facility] UA Auto SS WBC Auto (Urine sed) [#/Area] 0-5 graded/HPF Normal 0-5graded/ HPF [facility] UA Auto SS URINALYSISOrdered By: Marvin Simpson on 03-12-2024 UA Spec Desc Catheter (03/12/24 1:55 PM) Normal [facility] UA Auto SS C Urineon 03-11-2024 Bacteria identified Cx Nom (U) Microbiology PROCEDURE: Urine Culture [R1] SOURCE: U CleanCatch BODY SITE: COLLECTED DATE/TIME: 03/09/2024 06:40 EDT RECEIVED DATE/TIME: 03/09/2024 08:37 EDT START DATE/TIME: 03/09/2024 08:37 EDT FREE TEXT SOURCE: Mati Taylor DO, DO, Kaylinn A FINAL REPORTS Final Report [] Verified Date/Time: 03/11/2024 09:55 EDT 75,000 cfu/ml Klebsiella pneumoniae 3,000 cfu/ml Mixed skin contaminants SUSCEPTIBILITY RESULTS _ LEGEND: S=Susceptible, N/R=Not Reported, Blank=Data not available, or drug not advisable or tested, I=Intermediate, ESBL=Extended spectrum beta-lactamase, R=Resistant, TFG=Thymidine-dependent strain, ANAY=Beta-lactamase positive, REINALDO=mcg/m;(mg/L), S*=Predicted susceptible interp, R*=Predicted resistant interp Klepne Antibiotic REINALDO Dilutn REINALDO Interp Ampicillin 16 R* Ampicillin/ <=8/4 S Sulbactam Aztreonam <=4 S Cefazolin <=2 S Cefepime <=2 S Ceftazidime <=1 S Ceftazidime/ <=8 S Avibactam Ceftriaxone <=1 S Cefuroxime <=4 S Ciprofloxacin <=0.25 S Ertapenem <=0.5 S Gentamicin <=2 S Levofloxacin <=0.5 S Meropenem <=1 S Nitrofurantoin <=32 S Piperacillin/ <=8 S Tazobactam Tetracycline <=4 S Tobramycin <=2 S Trimethoprim/ >2/38 R Sulfa Performing Locations R1: This test was performed at: [facility], [address] [place] [address], [phone] [phone] , [facility] Comment on above: Performed By: #### 2 [id number] #### [facility] [address] [place] [id number] ED Clinical Summaryon 2023 ED Clinical Summary ED Clinical Summary [address] [address] ED Clinical Summary Person Information Name: MAEGAN DYE/Raul Age: 74 Years : 1950 Sex: Female Language: Dutch PCP: AZUL GORMAN CNP Marital Status: Phone: [phone] Visit Id: Visit Reason: Back pain; Dysuria; CAN'T URINATE Speciality: Acuity: 4 Enc Type: Emergency Med Service: Emergency Arrival: 03/11/2024 11:40:07 Discharge: 03/11/2024 14:09:48 LOS: 000 02:29 Checkin: 03/11/2024 11:40:07 Checkout: 03/11/2024 14:09:48 Dispo Type: Home (Routine DC) EVENTS: Event Name Event Status Request Date/Time Start Date/Time Complete Date/Time Arrive Complete 03/11/2024 11:40:07 03/11/2024 11:40:07 03/11/2024 11:40:07 Document Home Meds Request 03/11/2024 11:40:07 Triage Complete 03/11/2024 11:40:07 03/11/2024 11:50:41 03/11/2024 11:50:41 Registration Complete 03/11/2024 11:44:30 03/11/2024 11:44:30 03/11/2024 11:44:30 Reg Complete Request 03/11/2024 11:44:30 Reg Bed Request Complete 03/11/2024 11:44:30 03/11/2024 11:44:30 03/11/2024 11:44:30 Isolation Screening Request 03/11/2024 11:50:41 Pending Labs Complete 03/11/2024 11:50:58 03/11/2024 13:41:43 Bed Assign Complete 03/11/2024 13:33:35 03/11/2024 13:33:35 03/11/2024 13:33:35 Dr Exam Complete 03/11/2024 13:33:35 03/11/2024 13:40:18 03/11/2024 13:40:18 RN Exam Complete 03/11/2024 13:33:35 03/11/2024 13:39:29 03/11/2024 13:39:29 Registration Request 03/11/2024 13:40:18 Discharge Complete 03/11/2024 14:02:27 03/11/2024 14:09:53 03/11/2024 14:09:53 Transfer Complete 03/11/2024 14:09:53 03/11/2024 14:09:53 03/11/2024 14:09:53 ADDRESS: [facility] [address] [facility] [id number] PHYS DOC NOTES: MEDICAL INFORMATION: Prescriptions Given: New Medications [id number], [address] [place], [place] [id number], [phone] phenazopyridine (Pyridium 200 mg Tab) 1 Tablets By Mouth 3 times a day for 3 Days. Refills: 0. Medications to [...] 5. fluticasone nasal (fluticasone 0.05 mg/inh Nasal [place]) 2 Sprays Nasal Inhalation every day. each [...] 3 times a day. Refills: 0. nitrofurantoin (Macrobid 100 mg Cap) 1 Capsules By Mouth every 12 hours for 5 Days. Refills: 0. nitrofurantoin (nitrofurantoin macrocrystals-monohydrate 100 mg [...] clonazepam. Refills: 3. PATIENT EDUCATION INFORMATION: Instructions: Dysuria Follow up: With: Address: When: AZUL GORMAN [address] [place], [place] [id number] [facility] () In 3 days 03/14/2024 Comments: Make sure to follow-up with your primary doctor as discussed. Return to the emergency room if your symptoms get worse, fever or any new symptoms DIAGNOSIS: 1:Dysuria Normal [facility] ED Note-Physicianon 03-11-20 ED Note-Physician ED Note-Physician Basic Information Time Seen: Didier Hooks M.D. 03/11/2024 13:40 Chief Complaint patient c/o burning with urination and foul odor for past week. bladder scan 140 on arrival History of Present Illness The patient is 74-year-old female who presented to the emergency room with burning with urination and lower back pain. The patient denies any nausea, denies any vomiting. She denies any abdominal pain. She denies any fever, denies any chills. The patient denies any vaginal discharge or vaginal irritation. The patient denies any other associated symptoms. Review of Systems Additional ROS info: Except as noted in the above Review of Systems and in the History of Present Illness all other systems have been reviewed and are negative or noncontributory. Physical Exam Vitals & Measurements T: 36.6 ?C(Oral) HR: 84(Peripheral) RR: 18 BP: 155/70 SpO2: 95% HT: 154.9 cm WT: 66 kg BMI: 27.51 General: alert, no acute distress Skin: warm, dry, Head: no trauma, normocephalic Neck: Trachea midline, Eye: normal conjunctiva, sclera clear, Cardiovascular: regular rate and rhythm, Respiratory: Lungs CTA, respirations non labored, breath sounds equal, Gastrointestinal: soft, non distended, no tenderness, no guarding, Back: No tenderness, Normal ROM, Extremities: no deformity, no trauma Neurological: Alert and oriented, speech normal, no focal neuro deficits Psychiatric: cooperative, affect appropriate for age, Medical Decision Making MEDICAL DECISION MAKING Number and Complexity of Problems Differential Diagnosis: [] [facility] Data External documents reviewed: [] My EKG interpretation: [] My CT interpretation: [] My X-ray interpretation: [] My Ultrasound interpretation: [] Decision rules/scores evaluated: [] Discussed with: [] Treatment and Disposition ED Course: The patient presented with dysuria. The patient was seen in the emergency room 2 days ago and she was diagnosed with urinary tract infection. Her urine culture grew out Klebsiella pneumonia that is sensitive to nitrofurantoin. The patient was prescribed nitrofurantoin. The urine analysis today is completely cleared. No signs of infection. The patient is afebrile. Bladder scan shows 140 mL of urine. The patient does not appear to be toxic. Will discharge patient home with prescription for Pyridium. She was instructed to continue taking the nitrofurantoin until is finished. She is instructed follow-up with primary care and return to the emergency room if her symptoms get worse, fever or any new symptoms. Shared decision making: [] Code status: [] Assessment/Plan 1. Dysuria (R30.0: Dysuria) Orders: phenazopyridine, 200 mg = 1 tab(s), Oral, TID, X 3 day(s), # 9 tab(s), Refills(s) 0, Pharmacy: [id number], 154.9, cm, 03/11/24 11:50:00 EDT, Height/Length Dosing, 66, kg, 03/11/24 11:50:00 EDT, Weight Dosing UA with Cult Rflx Disposition Plan Patient Discharge Condition Stable Discharge Disposition Discharge home Discharge Prescription List Prescriptions Pyridium 200 mg Tab, 200 mg= 1 tab(s), Oral, TID Follow-up With When Contact Information AZUL GORMAN In 3 days 03/14/2024 EDT [address] [place] [place] [address] Business (1) Additional Instructions: Make sure to follow-up with your primary doctor as discussed. Return to the emergency room if your symptoms get worse, fever or any new symptoms Patient Education Dysuria Problem List/Past Medical History Ongoing Acute UTI [...] Vitamin D deficiency Historical Accidental fall Agent Vinson ASTHMA Benzodiazepine withdrawal Bipolar disorder Callus of [...] HTN - Hypertension Hypertension Hypo-osmolality and or hyponatremia Hypokalemia Laryngitis Left hip pa (more content not included)... Normal [facility] Comment on above: Result Comment: Elec tronically Signed By: Neva Newton, Didier H\.br\Date and Time Signed: 03/11/24 14:25 EDT ED Patient Summaryon 024 ED Patient Summary ED Patient Summary [address] [address] Patient Discharge Instructions Person Information Name: MAEGAN DYE Age: 74 Years Arrival Date: 03/11/2024 11:40:07 Discharge Diagnosis: 1:Dysuria Primary Care Physician: AZUL GORMAN CNP Provider Information Primary Provider: Didier Hooks M.D. [employer] Set Up Operator Vertical:None The exam and treatment you received in the Emergency Department were for an urgent problem and are not intended as complete care. It is important that you follow up with a doctor, nurse practitioner, or physician?s assistant executive housekeeper for ongoing care. If your symptoms become worse or you do not improve as expected and you are unable to reach your usual health care provider, you should return to the Emergency Department. We are available 24 hours a day. MAEGAN DYE has been given the following list of patient education materials, prescriptions and follow-up instructions: Follow-up Instructions: With: Address: When: AZUL GORMAN [address] [place], [place] [address] [address] [place] [phone] Business (1) In 3 days 03/14/2024 Comments: Make sure to follow-up with your primary doctor as discussed. Return to the emergency room if your symptoms get worse, fever or any new symptoms In the event that this physician does not participate in your insurance network, please consult with your insurance company to find a nearby participating provider. Patient Education Materials: Dysuria A MESSAGE TO ALL PATIENTS REGARDING OPIOIDS PRESCRIPTION OPIOIDS: WHAT YOU NEED TO KNOW Prescription opioids can be used to help relieve mijfvpac-jw-wfgmiy pain and are often prescribed following a [...] If you believe you may be struggling wi (more content not included)... Normal [facility] UA with Cult Rflxon 03-11-20 Bilirubin Ql (U) Negative Normal Negative [facility] Comment on above: Performed By: #### 4 [id number] #### [facility] [address] [place] [address] Clarity (U) Clear Normal Clear [facility] Comment on above: Performed By: #### 4 [id number] #### [facility] [address] [place] [address] Color (U) Light-Yellow Normal Yellow [facility] Comment on above: Result Comment: Micr oscopic readings are only performed on those samples that meet specific criteria set forth by [facility]. Performed By: #### 4 [id number] #### [facility] [address] [place] [address] Glucose Ql (U) Negative Normal Negative [facility] Comment on above: Performed By: #### 4 [id number] #### [facility] [address] [place] [address] Hemoglobin Auto test strip (U) [Mass/Vol] Negative Normal Negative [facility] Comment on above: Performed By: #### 4 [id number] #### [facility] [address] [place] [address] Ketones Auto test strip Ql (U) Negative Normal Negative [facility] Comment on above: Performed By: #### 4 [id number] #### [facility] [address] [place] [address] Leukocyte esterase Auto test strip Ql (U) Negative Normal Negative [facility] Comment on above: Performed By: #### 4 [id number] #### [facility] [address] [place] [address] Nitrite Auto test strip Ql (U) Negative Normal Negative [facility] Comment on above: Performed By: #### 4 [id number] #### [facility] [address] [place] [address] pH (U) 6.0 [pH] Invalid Interpretation Code 5.0-9.0 [facility] Comment on above: Performed By: #### 4 [id number] #### [facility] [address] [place] [address] Protein Ql (U) Negative Normal Negative [facility] Comment on above: Performed By: #### 4 [id number] #### [facility] [address] [place] [id number] Specific gravity (U) [Rel density] 1.008 Invalid Interpretation Code 1.005-1.03 0 [facility] Comment on above: Performed By: #### 4 [id number] #### [facility] [address] [place] [address] Urobilinogen (U) [Mass/Vol] Negative Normal Negative [facility] Comment on above: Performed By: #### 4 [id number] #### [facility] [address] [place] [address] Type of Urine collection method Clean Catch Normal [facility] Comment on above: Performed By: #### 4 [id number] #### [facility] [address] [place] [id number] URINALYSISOrdered By: SYSTEM SYSTEM on 03-11-2024 Bilirubin Ql (U) Negative Normal Negativemg /dL [facility] UA Auto SS Clarity (U) Clear (03/11/24 1:35 PM) Normal Clear [facility] UA Auto SS Color (U) Light-Yellow 1 (03/11/24 1:35 PM) Normal Yellow [facility] UA Auto SS Comment on above: Interpretive Data: M icroscopic readings are only performed on those samples that meet specific criteria set forth by [facility]. Glucose Ql (U) Negative Normal Negativemg /dL [facility]A Auto SS Hemoglobin Auto test strip (U) [Mass/Vol] Negative Normal Negativemg /dL [facility] UA Auto SS Ketones Auto test strip Ql (U) Negative Normal Negativemg /dL [facility] UA Auto SS Leukocyte esterase Auto test strip Ql (U) Negative Normal NegativeLe u/uL [facility] UA Auto SS Nitrite Auto test strip Ql (U) Negative Normal Negativemg /dL [facility]A Auto SS pH (U) 6.0 *NA* (03/11/24 1:35 PM) Invalid Interpretation Code 5.0 - 9.0 [facility]A Auto SS Protein Ql (U) Negative Normal Negativemg /dL [facility] UA Auto SS Specific gravity (U) [Rel density] 1.008 *NA* (03/11/24 1:35 PM) Invalid Interpretation Code 1.005 - 1.030 [facility] UA Auto SS Urobilinogen (U) [Mass/Vol] Negative Normal Negativemg /dL [facility] UA Auto SS URINALYSISOrdered By: Bryanna Alvarado on 03-11-2024 UA Spec Desc Clean Catch (03/11/24 1:35 PM) Normal [facility] UA Auto SS ED Clinical Summaryon 2023 ED Clinical Summary ED Clinical Summary [place] [address] ED Clinical Summary Person Information Name: MAEGAN DYE/[facility] Age: 74 Years : 1950 Sex: Female Language: Dutch PCP: AZUL GORMAN CNP Marital Status: Phone: [phone] Visit Id: Visit Reason: Urinary frequency; Dysuria; UNABLE TO URINATE SINCE YESTERDAY Speciality: Acuity: 3 Enc Type: Emergency Med Service: Emergency Arrival: 03/09/2024 06:21:26 Discharge: 03/09/2024 06:54:02 LOS: 000 00:33 Checkin: 03/09/2024 06:21:26 Checkout: 03/09/2024 06:54:02 Dispo Type: Home (Routine DC) EVENTS: Event Name Event Status Request Date/Time Start Date/Time Complete Date/Time Arrive Complete 03/09/2024 06:21:26 03/09/2024 06:21:26 03/09/2024 06:21:26 Document Home Meds Request 03/09/2024 06:21:26 Triage Complete 03/09/2024 06:21:26 03/09/2024 06:37:24 03/09/2024 06:37:24 Dr Exam Complete 03/09/2024 06:24:21 03/09/2024 06:24:21 03/09/2024 06:24:21 Registration Complete 03/09/2024 06:24:21 03/09/2024 06:25:20 03/09/2024 06:25:20 Reg Complete Request 03/09/2024 06:25:20 Reg Bed Request Complete 03/09/2024 06:25:20 03/09/2024 06:25:20 03/09/2024 06:25:20 Isolation Screening Request 03/09/2024 06:37:24 Pending Labs Collected 03/09/2024 06:38:03 Bed Assign Complete 03/09/2024 06:44:01 03/09/2024 06:44:01 03/09/2024 06:44:01 RN Exam Complete 03/09/2024 06:44:01 03/09/2024 06:49:14 03/09/2024 06:49:14 Meds Admin Complete 03/09/2024 06:47:28 03/09/2024 06:52:35 Discharge Complete 03/09/2024 06:48:35 03/09/2024 06:54:09 03/09/2024 06:54:09 Transfer Complete 03/09/2024 06:54:09 03/09/2024 06:54:09 03/09/2024 06:54:09 ADDRESS: [facility] [address] [facility] [id number] PHYS DOC NOTES: MEDICAL INFORMATION: Prescriptions Given: Medications to Continue Taking That Have Changed [id number], [address] [place], [place] [id number], [phone] START: nitrofurantoin (Macrobid 100 mg Cap) 1 Capsules By Mouth every 12 hours for 5 Days. Refills: 0. Other Medications START: nitrofurantoin (nitrofurantoin macrocrystals-monohydrate 100 mg Cap) 1 Capsules By Mouth 2 times a day. Refills: 0. Medications to Continue with No [...] 5. fluticasone nasal (fluticasone 0.05 mg/inh Nasal [place]) 2 Sprays Nasal Inhalation every day. each [...] Topical 3 times a day. Refills: 0. ondansetron (ondansetron [...] clonazepam. Refills: 3. PATIENT EDUCATION INFORMATION: Instructions: Urinary Tract Infection, Adult, Uhxv-xq-Xkmc Follow up: With: Address: When: [place] [address] Business (1) In 3 days 03/12/2024 Comments: Start taking the Macrobid twice daily until you have completed the course. Please follow-up with your primary care doctor for further evaluation management. Return to the ED for any new or worsening symptoms. DIAGNOSIS: Acute UTI (urinary tract infection) Normal [facility] ED Note-Physicianon 03-09-20 ED Note-Physician ED Note-Physician Basic Information Time Seen: Mati Taylor DO 03/09/2024 06:24 Chief Complaint I have a hard time urinating. Chronic Back pain that worsened 4 days ago. States burning, frequency and odor with urination. Started on Bactrim on Friday, but does not feel as though it is enough. 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 Patient was seen at [facility] yesterday was diagnosed with a urinary tract infection was started on Bactrim. Patient states Bactrim does not work for her previous UTIs and would like something different. Patient states Macrobid has worked well for her in the past. Denies any fevers, chills, nausea or vomiting. Review of Systems A 10 point review of systems is negative except as noted above. Medical and Surgical History: Reviewed and noted Social history: Lives at home Tobacco: Denies Physical Exam Vitals & Measurements T: 36.3 ?C(Oral) HR: 81(Peripheral) RR: 16 BP: 136/76 SpO2: 91% HT: 154.9 cm WT: 65.9 kg BMI: 27.47 General: Well developed, non toxic appearing, no acute distress HEENT: Head atraumatic, Mucosa moist, hearing grossly normal Neck: No JVD, tracheal deviation Cardiac: Regular rate, rhythm, no murmurs, or gallops, 2+ radial pulses Respiratory: Lungs clear to auscultation B/L, normal respiratory effort Abdomen: Soft non tender, no rebound or guarding, no peritoneal signs Extremities: No edema noted in the LE B/L, no tenderness to palpation Neurologic: Alert and oriented, speech clear Skin: No rashes or lesions Psych: Appropriate mood and behavior Medical Decision Making MEDICAL DECISION MAKING Number and Complexity of Problems Differential Diagnosis: [] [facility] Data External documents reviewed: [] My EKG interpretation: [] My CT interpretation: [] My X-ray interpretation: [] My Ultrasound interpretation: [] Decision rules/scores evaluated: [] Discussed with: [] Treatment and Disposition ED Course: Patient is a 74-year-old female presenting to the ED for evaluation of urinary tract infection. Patient diagnosed with urinary tract infection yesterday at the outside hospital was started on antibiotics for that she is states does not work for her. Patient states Macrobid has worked well in the past I did review previous cultures this does appear sensitive. Patient started on Macrobid advised to stop the Bactrim. She is to follow-up with her primary care doctor for further evaluation management. She is return to the ED for any new or worsening symptoms. Shared decision making: [] Code status: [] Assessment/Plan Acute UTI (urinary tract infection) (N39.0: Urinary tract infection, site not specified) Orders: nitrofurantoin, 100 mg = 1 cap(s), Cap, Oral, Once, Stop date 03/09/24 6:47:00 EDT, STAT, Start date 03/09/24 6:47:00 EDT, 03/09/24 6:47:00 EDT nitrofurantoin, 100 mg = 1 cap(s), Oral, q12hr, X 5 day(s), # 10 cap(s), Refills(s) 0, Pharmacy: [facility]/pharmacy #[id number], 154.9, cm, 03/09/24 6:37:00 EDT, Height/Length Dosing, 65.9, kg, 03/09/24 6:37:00 EDT, Weight Dosing UA with Cult Rflx Disposition Plan Discharge Prescription List Prescriptions Macrobid 100 mg Cap, 100 mg= 1 cap(s), Oral, q12hr Follow-up With When Contact Information AZUL GORMAN In 3 days 03/12/2024 EDT [address] [place] [address]- Business (1) Additional Instructions: Start taking the Macrobid twice daily until you have completed the course. Please follow-up with your primary care doctor for further evaluation management. Return to the ED for any new or worsening symptoms. Patient Education Urinary Tract Infection, Adult, Bwxp-ld-Qfom Problem List/Past Medical History Ongoing Acute UTI [...] Vitamin D deficiency Historical Accidental fall Agent Vinson ASTHMA Benzodiazepine withdrawal Bipolar disorder Callus of foot Cerebral hemorrhage chronic back pain Chronic GERD Chronic kidney disease, stage 2 (mild) Chronic pain Closed fracture of base of skull with concussion code blue d/t hypokalemia collapsed lung on (more content not included)... Normal [facility] Comment on above: Result Comment: Elec tronically Signed By: Mati Taylor DO\.br\Date and Time Signed: 03/09/24 06:51 EDT ED Patient Summaryon ED Patient Summary ED Patient Summary [place] [address] Patient Discharge Instructions Person Information Name: MAEGAN DYE Age: 74 Years Arrival Date: 03/09/2024 06:21:26 Discharge Diagnosis: Acute UTI (urinary tract infection) Primary Care Physician: AZUL GORMAN CNP Provider Information Primary Provider: Mati Taylor DO [employer] Vertical:None The exam and treatment you received in the Emergency Department were for an urgent problem and are not intended as complete care. It is important that you follow up with a doctor, nurse practitioner, or physician?s assistant executive housekeeper for ongoing care. If your symptoms become worse or you do not improve as expected and you are unable to reach your usual health care provider, you should return to the Emergency Department. We are available 24 hours a day. MARNIEMAEGAN has been given the following list of patient education materials, prescriptions and follow-up instructions: Follow-up Instructions: With: Address: When: [place] [address] Business (1) In 3 days 03/12/2024 Comments: Start taking the Macrobid twice daily until you have completed the course. Please follow-up with your primary care doctor for further evaluation management. Return to the ED for any new or worsening symptoms. In the event that this physician does not participate in your insurance network, please consult with your insurance company to find a nearby participating provider. Patient Education Materials: Urinary Tract Infection, Adult, Xvar-of-Tntl A MESSAGE TO ALL PATIENTS REGARDING OPIOIDS PRESCRIPTION OPIOIDS: WHAT YOU NEED TO KNOW Prescription opioids can be used to help relieve upbohvld-lz-hlkjde pain and are often prescribed following a [...] and Drug Administration (www.fda.gov/Drugs/Resourc esForYou). ? Visit (more content not included)... Normal [facility] UA with Cult Rflxon 03-09-20 24 Bacteria Auto Ql (U) 2+ /HPF Abnormal Trace Fish er [facility] Comment on above: Performed By: #### 4 [id number] #### [facility] [address] [place] [address] Bilirubin Ql (U) Negative Normal Negative [facility] Comment on above: Performed By: #### 4 [id number] #### [facility] [address] [place] [address] Clarity (U) Turbid Abnormal Clear [facility] Comment on above: Performed By: #### 4 [id number] #### [facility] [address] [place] [address] Color (U) Light-Yellow Normal Yellow [facility] Comment on above: Result Comment: Micr oscopic readings are only performed on those samples that meet specific criteria set forth by [facility]. Performed By: #### 4 [id number] #### [facility] [address] [place] [address] Epithelial cells.renal Computer assisted Ql (U) 0-2 Abnormal [facility] Comment on above: Performed By: #### 4 [id number] #### [facility] [address] [place] [address] Epithelial cells.squamous Auto (Urine sed) [#/Area] >10 Invalid Interpretation Code [facility] Comment on above: Performed By: #### 4 [id number] #### [facility] [address] [place] [address] Glucose Ql (U) Negative Normal Negative [facility] Comment on above: Performed By: #### 4 [id number] #### [facility] [address] [place] [address] Hemoglobin Auto test strip (U) [Mass/Vol] Negative Normal Negative [facility] Comment on above: Performed By: #### 4 [id number] #### [facility] [address] [place] [address] Ketones Auto test strip Ql (U) Negative Normal Negative [facility] Comment on above: Performed By: #### 4 [id number] #### [facility] [address] [place] [address] Leukocyte esterase Auto test strip Ql (U) 250 Gretchen/uL Abnormal Negative [facility] Comment on above: Performed By: #### 4 [id number] #### [facility] [address] [place] [address] Mucus Auto Ql (U) Trace Normal Negative [facility] Comment on above: Performed By: #### 4 [id number] #### [facility] [address] [place] [address] Nitrite Auto test strip Ql (U) Negative Normal Negative [facility] Comment on above: Performed By: #### 4 [id number] #### [facility] [address] [place] [address] pH (U) 7.0 [pH] Invalid Interpretation Code 5.0-9.0 [facility] Comment on above: Performed By: #### 4 [id number] #### [facility] [address] [place] [address] Protein Ql (U) Negative Normal Negative [facility] Comment on above: Performed By: #### 4 [id number] #### [facility] [address] [place] [address] RBC Ql (U) 31-75 Abnormal 0-3 [facility] Comment on above: Performed By: #### 4 [id number] #### [facility] [address] [place], [place] [id number] Specific gravity (U) [Rel density] 1.007 Invalid Interpretation Code 1.005-1.03 0 [facility] Comment on above: Performed By: #### 4 [id number] #### [facility] [address] [place], [place] [phone] Urobilinogen (U) [Mass/Vol] Negative Normal Negative [facility] Comment on above: Performed By: #### 4 [id number] #### [facility] [address] [place], [place] [phone] WBC Auto (Urine sed) [#/Area] 31-75 Abnormal 0-5 [facility] Comment on above: Performed By: #### 4 [id number] #### [facility] [address] [place], [place] [phone] Yeast.budding Computer assisted Ql (U) 1+ CD:[id number] Abnormal [facility] Comment on above: Performed By: #### 4 [id number] #### [facility] [address] [place] [address] Type of Urine collection method Clean Catch Normal [facility] Comment on above: Performed By: #### 4 [id number] #### [facility] [address] [place] [address] URINALYSISOrdered By: Lilibeth Garcia on 03-09-2024 Bacteria Auto Ql (U) 2+ /HPF Invalid Interpretation Code Trace/HPF [facility] UA Auto SS Bilirubin Ql (U) Negative Normal Negativemg /dL [facility] UA Auto SS Clarity (U) Turbid *ABN* (03/09/24 6:40 AM) Invalid Interpretation Code Clear [facility] UA Auto SS Color (U) Light-Yellow 1 (03/09/24 6:40 AM) Normal Yellow [facility] UA Auto SS Comment on above: Interpretive Data: M icroscopic readings are only performed on those samples that meet specific criteria set forth by [facility]. Epithelial cells.renal Computer assisted Ql (U) 0-2 graded/HPF Invalid Interpretation Code [facility] UA Auto SS Epithelial cells.squamous Auto (Urine sed) [#/Area] >10 graded/HPF Invalid Interpretation Code [facility] UA Auto SS Glucose Ql (U) Negative Normal Negativemg /dL [facility] UA Auto SS Hemoglobin Auto test strip (U) [Mass/Vol] Negative (03/09/24 6:40 AM) Normal Negative [facility] UA Auto SS Ketones Auto test strip Ql (U) Negative Normal Negativemg /dL [facility] UA Auto SS Leukocyte esterase Auto test strip Ql (U) 250 Gretchen/uL *ABN* (03/09/24 6:40 AM) Invalid Interpretation Code Negative [facility] UA Auto SS Mucus Auto Ql (U) Trace Normal Negative [facility] UA Auto SS Nitrite Auto test strip Ql (U) Negative Normal Negativemg /dL [facility] UA Auto SS pH (U) 7.0 *NA* (03/09/24 6:40 AM) Invalid Interpretation Code 5.0 - 9.0 [facility] UA Auto SS Protein Ql (U) Negative Normal Negativemg /dL [facility] UA Auto SS RBC Ql (U) 31-75 graded/HPF Invalid Interpretation Code 0-3graded/ HPF [facility] UA Auto SS Specific gravity (U) [Rel density] 1.007 *NA* (03/09/24 6:40 AM) Invalid Interpretation Code 1.005 - 1.030 [facility] UA Auto SS Urobilinogen (U) [Mass/Vol] Negative Normal Negativemg /dL [facility] UA Auto SS WBC Auto (Urine sed) [#/Area] 31-75 *ABN* (03/09/24 6:40 AM) Invalid Interpretation Code 0-5 [facility] UA Auto SS Yeast.budding Computer assisted Ql (U) 1+ graded/HPF Invalid Interpretation Code [facility] UA Auto SS URINALYSISOrdered By: Devora Villalobos on 03-09-2024 UA Spec Desc Clean Catch (03/09/24 6:40 AM) Normal [facility] UA Auto SS C Urineon 02-26-2024 Bacteria identified Cx Nom (U) Microbiology PROCEDURE: Urine Culture [R1] SOURCE: U CleanCatch BODY SITE: COLLECTED DATE/TIME: 02/24/2024 12:01 EDT RECEIVED DATE/TIME: 02/24/2024 15:52 EDT START DATE/TIME: 02/24/2024 15:52 EDT FREE TEXT SOURCE: Vic BYRD, Malick Ho PA-C, Malick FINAL REPORTS Final Report [] Verified Date/Time: 02/26/2024 11:29 EDT <10,000 cfu/ml Mixed skin contaminants Mixed manuel (multiple species present) Performing Locations R1: This test was performed at: [facility], [address] [place] [address], [facility] , , [facility] Comment on above: Performed By: #### 2 [id number] #### [facility] [address] [place] [address] ED Clinical Summaryon 2023 ED Clinical Summary ED Clinical Summary [address] [address] ED Clinical Summary Person Information Name: MAEGAN DYE/[facility] Age: 74 Years : 1950 Sex: Female Language: Dutch PCP: AZUL GORMAN CNP Marital Status: Phone: [phone] Visit Id: Visit Reason: Flank pain; Dysuria; HARD TO URINATE, SMELLY URINE, LOWER BACK PAIN Speciality: Acuity: 3 Enc Type: Emergency Med Service: Emergency Arrival: 02/24/2024 11:16:14 Discharge: 02/24/2024 12:52:41 LOS: 000 01:36 Checkin: 02/24/2024 11:16:14 Checkout: 02/24/2024 12:52:41 Dispo Type: Home (Routine DC) EVENTS: Event Name Event Status Request Date/Time Start Date/Time Complete Date/Time Arrive Complete 02/24/2024 11:16:14 02/24/2024 11:16:14 02/24/2024 11:16:14 Document Home Meds Request 02/24/2024 11:16:14 Triage Complete 02/24/2024 11:16:14 02/24/2024 11:22:46 02/24/2024 11:22:46 Bed Assign Complete 02/24/2024 11:18:47 02/24/2024 11:18:47 02/24/2024 11:18:47 Dr Exam Complete 02/24/2024 11:18:47 02/24/2024 11:23:50 02/24/2024 11:23:50 RN Exam Complete 02/24/2024 11:18:47 02/24/2024 11:24:51 02/24/2024 11:24:51 Registration Complete 02/24/2024 11:18:53 02/24/2024 11:18:53 02/24/2024 11:18:53 Reg Complete Request 02/24/2024 11:18:53 Reg Bed Request Complete 02/24/2024 11:18:53 02/24/2024 11:18:53 02/24/2024 11:18:53 Isolation Screening Request 02/24/2024 11:22:47 Registration Request 02/24/2024 11:23:50 Fall Risk Request 02/24/2024 11:24:51 Dr Exam Complete 02/24/2024 11:31:14 02/24/2024 11:31:14 02/24/2024 11:31:14 Pending Labs Complete 02/24/2024 11:35:38 02/24/2024 12:21:24 Pending Labs Collected 02/24/2024 12:21:25 02/24/2024 12:21:25 Lab Collected 02/24/2024 12:21:25 02/24/2024 12:21:25 Discharge Complete 02/24/2024 12:33:19 02/24/2024 12:52:47 02/24/2024 12:52:47 Transfer Complete 02/24/2024 12:52:47 02/24/2024 12:52:47 02/24/2024 12:52:47 ADDRESS: [address] [place] [id number] PHYS DOC NOTES: MEDICAL INFORMATION: Prescriptions Given: Medications to Continue Taking That Have Changed [id number], [address] [place] [phone], [phone] START: nitrofurantoin (Macrobid 100 mg Cap) 1 Capsules By Mouth 2 times a day for 7 Days. Refills: 0. Other Medications START: nitrofurantoin (nitrofurantoin macrocrystals-monohydrate 100 mg Cap) 1 Capsules By Mouth 2 times a day. Refills: 0. Medications to Continue with No [...] 5. fluticasone nasal (fluticasone 0.05 mg/inh Nasal [place]) 2 Sprays Nasal Inhalation every day. each [...] Topical 3 times a day. Refills: 0. ondansetron (ondansetron [...] clonazepam. Refills: 3. PATIENT EDUCATION INFORMATION: Instructions: Urinary Tract Infection, Adult Follow up: With: Address: When: [address] [place] [address] [employer] In 3 days 02/27/2024 DIAGNOSIS: Bacterial infection, unspecified; UTI (urinary tract infection), bacterial Normal [facility] ED Note-Physicianon 02-24-20 ED Note-Physician ED Note-Physician Basic Information Time Seen: Malick Ho PA-C 02/24/2024 11:23 Chief Complaint pt c/o flank pain, foul smelling urine, and dysuria. pt was seen here last night for same symptoms History of Present Illness 74-year-old female comes to the ED for evaluation of dysuria. She has a history recurrent urinary tract infections. She states she was seen here yesterday had negative urinalysis, but overnight she developed worsening flank pain, chills, and has now noted a foul smell to her urine. No fevers. No vomiting. 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 She normally self caths. Review of Systems A 10 point review of systems is negative except as noted above. Medical and Surgical History: Reviewed and noted Social history: Lives at home Tobacco: Denies Physical Exam Vitals & Measurements T: 36.7 ?C(Oral) HR: 71(Peripheral) RR: 18 BP: 142/74 SpO2: 93% HT: 162 cm WT: 61.2 kg BMI: 23.32 Nurses notes and vital signs reviewed and patient is not hypoxic. General: The patient appears well, resting comfortably. Skin: Warm, dry. Head: Atraumatic. Neck: No JVD. Eye: Normal conjunctiva. Ears, Nose, Mouth, and Throat: Moist mucous membranes. Cardiovascular: Strong distal pulses. Chest wall: Respiratory: Respirations are nonlabored. Back: Normal range of motion. Musculoskeletal: Normal ROM with no gross deformity. Gastrointestinal: Urological: Neurological: Awake and alert. No focal deficits. Follows commands. Psychiatric: Cooperative. Medical Decision Making Patient resting comfortably and overall well-appearing on examination. Repeat urinalysis was obtained. She does have abnormalities compared to previous UA, most notably elevated leuk esterase. She is concerned for UTI with a history of infections and states today symptoms feel similar. She started on Macrobid based on previous cultures, discharged home to follow-up with PCP. Patient was encouraged to return to the ED if symptoms worsen or change. Assessment/Plan Bacterial infection, unspecified (A49.9: Bacterial infection, unspecified) UTI (urinary tract infection), bacterial (N39.0: Urinary tract infection, site not specified) Orders: nitrofurantoin, 100 mg = 1 cap(s), Oral, BID, X 7 day(s), # 14 cap(s), Refills(s) 0, Pharmacy: [facility]/pharmacy #[id number], 162, cm, 02/24/24 11:22:00 EDT, Height/Length Dosing, 61.2, kg, 02/24/24 11:22:00 EDT, Weight Dosing UA with Cult Rflx Urine Culture Disposition Plan Patient Discharge Condition Disposition: Discharged home Condition: Improved and stable Counseled: Patient and/or family were counseled to workup, results, treatment plan and follow-up recommendations Discharge Prescription List Prescriptions Macrobid 100 mg Cap, 100 mg= 1 cap(s), Oral, BID Follow-up With When Contact Information AZUL GORMAN In 3 days 02/27/2024 EDT [address] [place] [address]- Business (1) Additional Instructions: Patient Education Urinary Tract Infection, Adult Attestation I performed a substantive part of the MDM during the patient?s E/M visit. I personally made or approved the documented management plan and acknowledge its risk of complications. (Independent Interpretation) My (EKG/X-Ray/US/CT) interpretation as above. (Discussion) Management/test interpretation discussed with APC. This report was transcribed using voice recognition software. Every effort was made to ensure accuracy, however, inadvertently computerized senior licensing manager mistakes may be present. Appropriate healthcare PPE was used in evaluating this patient. Problem List/Past Medical History Ongoing Acute UTI [...] Vitamin D deficiency Historical Accidental fall Agent Vinson ASTHMA Benzodiazepine withdrawal Bipolar disorder Callus of foot Cerebral hemorrhage chronic back pain Chronic GERD Chronic kidney disease, stage 2 (mild) Chronic pain Closed fracture of base of skull with concussion code blue d/t hypokalemia collapsed lung on the right compression fx back Constipation COPD - Chronic obstructive pulmonary disease depression DVT (deep venous thrombosis) Dysuria Fatigue Foot deformity, acquired GERD without esophagiti (more content not included)... Normal [facility] Comment on above: Result Comment: Elec tronically Signed By: Malick Ho PA-C\.br\Date and Time Signed: 02/24/24 12:36 EDT\.br\Electronically Co-Signed By: Didier Hooks M.D.\.br\Date and Time Co-Signed: 02/24/24 19:09 EDT ED Note-Physician ED Note-Physician Basic Information Time Seen: Rodrigue John PA-C 02/23/2024 18:36 Chief Complaint pt states urinary retention since yesterday. dribbling intermittently. History of Present Illness A 74-year-old female reports to the emergency department with complaints of urinary retention. Reports that she has not been able to urinate since yesterday. Reports dribbling intermittently. Reports that usually does self cath herself, but did not, so came to the emergency department. Denies any fevers or chills. Denies any urinary symptoms. Review of Systems No other aggravating or relieving factors no other associated symptoms no other prior treatments or complaints. Family: Reviewed and noncontributory Social: lives at home Review of systems negative unless otherwise specified in the HPI. Physical Exam Vitals & Measurements T: 36.7 ?C(Oral) HR: 73(Peripheral) RR: 18 BP: 138/66 SpO2: 95% HT: 162 cm WT: 61.2 kg BMI: 23.32 General: The patient appears well and in no apparent distress. Patient is resting comfortably on bed. Skin: Warm, dry, no pallor noted. Head: Normocephalic, atraumatic Neck: No JVD Eye: PERRLA, EOMI ENT: Moist mucus membranes Cardiovascular: Regular rate normal peripheral perfusion Respiratory: No respiratory distress no accessory muscle use no obvious audible wheezing Chest Wall: no deformity Musculoskeletal: normal ROM, no deformity, no swelling GI: No obvious distention soft nontender nondistended no guarding rebounding or rigidity Neurological: A&O moves all extremities equal strength and symmetry Psychiatric: Cooperative and appropriate Medical Decision Making MEDICAL DECISION MAKING Number and Complexity of Problems Differential Diagnosis: [] [facility] Data External documents reviewed: [] My EKG interpretation: [] My CT interpretation: [] My X-ray interpretation: [] My Ultrasound interpretation: [] Decision rules/scores evaluated: [] Discussed with: [] Treatment and Disposition ED Course: 74-year-old female reports to the emergency department with complaints of retaining urine. Initial presentation reports that she does have over 500 cc of urine in her bladder. Patient was able to urinate mildly, did drop to 406. I discussed that she is over 300, and would have to put in a Choi. Patient denying a Choi. Reports that she can self cath at home. I discussed that that is fine, but why did she come here. Patient stated that she is felt like she needed more help. I discussed that we can perform a catheterization here, which she was agreeable with. Discussed return precautions. Follow-up with your primary care provider in 3 to 5 days. If symptoms worsen, do not improve, or new symptoms arise please report back to emergency department for further evaluation. The patient was understanding and agreeable to plan moving forward. Shared decision making: [] Code status: [] Assessment/Plan Urinary retention (R33.9: Retention of urine, unspecified) Orders: UA with Cult Rflx Urinary Catheter Insertion Disposition Plan Patient Discharge Condition Stable Discharge Disposition to home Discharge Prescription List Prescriptions No active prescription medications Follow-up With When Contact Information AZUL GORMAN In 3 days 02/26/2024 EDT [address] [place] [address] Business (1) Additional Instructions: Call Dr for diagnosis based follow up Patient Education Acute Urinary Retention, Female, Eavb-qv-Yjof Attestation Patient seen and evaluated by the physician assistant executive housekeeper. Attending physician was present in the emergency department and supervised care. This visit was performed by both the physician and an APC. I performed all aspects of the MDM as documented. This report was transcribed using voice recognition software. Every effort was made to ensure accuracy, however, inadvertently computerized senior licensing manager mistakes may be present. Appropriate healthcare PPE [...] COPD without exacerbation Essential hypertriglyceridemia HTN (hypertension) H (more content not included)... Normal [facility] Comment on above: Result Comment: Elec tronically Signed By: Alvaro BYRD, Rodrigue Granado\.br\Date and Time Signed: 02/23/24 23:35 EDT\.br\Electronically Co-Signed By: Didier Hooks M.D.\.br\Date and Time Co-Signed: 02/24/24 07:18 EDT ED Patient Summaryon 024 ED Patient Summary ED Patient Summary [address] [address] Patient Discharge Instructions Person Information Name: MAEGAN DYE Age: 74 Years Arrival Date: 02/24/2024 11:16:14 Discharge Diagnosis: Bacterial infection, unspecified; UTI (urinary tract infection), bacterial Primary Care Physician: AZUL GORMAN CNP Provider Information Primary Provider: Didier Hooks M.D. [employer] Set Up Operator Vertical:Malick Ho PA-C The exam and treatment you received in the Emergency Department were for an urgent problem and are not intended as complete care. It is important that you follow up with a doctor, nurse practitioner, or physician?s assistant executive housekeeper for ongoing care. If your symptoms become worse or you do not improve as expected and you are unable to reach your usual health care provider, you should return to the Emergency Department. We are available 24 hours a day. MAEGAN DYE has been given the following list of patient education materials, prescriptions and follow-up instructions: Follow-up Instructions: With: Address: When: AZUL GORMAN [address] [place] [address] [phone] [facility] (1) In 3 days 02/27/2024 In the event that this physician does not participate in your insurance network, please consult with your insurance company to find a nearby participating provider. Patient Education Materials: Urinary Tract Infection, Adult A MESSAGE TO ALL PATIENTS REGARDING OPIOIDS PRESCRIPTION OPIOIDS: WHAT YOU NEED TO KNOW Prescription opioids can be used to help relieve zkztnytf-ha-ctznxj pain and are often prescribed following a [...] be struggling with addiction, tell your health health care aide and as (more content not included)... Normal [facility] UA with Cult Rflxon 02-24-20 24 Bacteria Auto Ql (U) Trace Normal Trace Fish [facility] Comment on above: Performed By: #### 4 [id number] #### [facility] [address] [place] [address] Bilirubin Ql (U) Negative Normal Negative [facility] Comment on above: Performed By: #### 4 [id number] #### [facility] [address] [place] [address] Clarity (U) Clear Normal Clear [facility] Comment on above: Performed By: #### 4 [id number] #### [facility] [address] [place] [address] Color (U) Colorless Abnormal Yellow [facility] Comment on above: Result Comment: Micr oscopic readings are only performed on those samples that meet specific criteria set forth by [facility]. Performed By: #### 4 [id number] #### [facility] [address] [place] [address] Epithelial cells.squamous Auto (Urine sed) [#/Area] 3-4 Invalid Interpretation Code [facility] Comment on above: Performed By: #### 4 [id number] #### [facility] [address] [place] [address] Glucose Ql (U) Negative Normal Negative [facility] Comment on above: Performed By: #### 4 [id number] #### [facility] [address] [place] [address] Hemoglobin Auto test strip (U) [Mass/Vol] Negative Normal Negative [facility] Comment on above: Performed By: #### 4 [id number] #### [facility] [address] [place] [address] Ketones Auto test strip Ql (U) Negative Normal Negative [facility] Comment on above: Performed By: #### 4 [id number] #### [facility] [address] [place] [address] Leukocyte esterase Auto test strip Ql (U) 250 Gretchen/uL Abnormal Negative [facility] Comment on above: Performed By: #### 4 [id number] #### [facility] [address] [place] [address] Mucus Auto Ql (U) Trace Normal Negative [facility] Comment on above: Performed By: #### 4 [id number] #### [facility] [address] [place] [address] Nitrite Auto test strip Ql (U) Negative Normal Negative [facility] Comment on above: Performed By: #### 4 [id number] #### [facility] [address] [place] [address] pH (U) 6.0 [pH] Invalid Interpretation Code 5.0-9.0 [facility] Comment on above: Performed By: #### 4 [id number] #### [facility] [address] [place] [address] Protein Ql (U) Negative Normal Negative [facility] Comment on above: Performed By: #### 4 [id number] #### [facility] [address] [place] [address] RBC Ql (U) 0-3 Normal 0-3 [facility] Comment on above: Performed By: #### 4 [id number] #### [facility] [address] [place] [address] Specific gravity (U) [Rel density] 1.005 Invalid Interpretation Code 1.005-1.03 0 [facility] Comment on above: Performed By: #### 4 [id number] #### [facility] [address] [place] [address] Urobilinogen (U) [Mass/Vol] Negative Normal Negative [facility] Comment on above: Performed By: #### 4 [id number] #### [facility] [address] [place] [address] WBC Auto (Urine sed) [#/Area] 0-5 Normal 0-5 [facility] Comment on above: Performed By: #### 4 [id number] #### [facility] [address] [place] [address] Type of Urine collection method Clean Catch Normal [facility] Comment on above: Performed By: #### 4 [id number] #### [facility] [address] [place] [address] URINALYSISOrdered By: SYSTEM SYSTEM on 02-24-2024 Bacteria Auto Ql (U) Trace /HPF Normal Trace/HPF [facility] UA Auto SS Bilirubin Ql (U) Negative Normal Negativemg /dL [facility] UA Auto SS Clarity (U) Clear (02/24/24 12:01 PM) Normal Clear [facility] UA Auto SS Color (U) Colorless 1 *ABN* (02/24/24 12:01 PM) Invalid Interpretation Code Yellow [facility] UA Auto SS Comment on above: Interpretive Data: M icroscopic readings are only performed on those samples that meet specific criteria set forth by [facility]. Epithelial cells.squamous Auto (Urine sed) [#/Area] 3-4 graded/HPF Invalid Interpretation Code [facility] UA Auto SS Glucose Ql (U) [...] UA Auto SS pH (U) 6.0 *NA* (02/24/24 12:01 PM) Invalid Interpretation Code 5.0 - 9.0 [facility] UA Auto SS Protein Ql (U) Negative Normal Negativemg /dL [facility] UA Auto SS RBC Ql (U) 0-3 graded/HPF Normal 0-3graded/ HPF [facility] UA Auto SS Specific gravity (U) [Rel density] 1.005 *NA* (02/24/24 12:01 PM) Invalid Interpretation Code 1.005 - 1.030 [facility] UA Auto SS Urobilinogen (U) [Mass/Vol] Negative Normal Negativemg /dL [facility] UA Auto SS WBC Auto (Urine sed) [#/Area] 0-5 graded/HPF Normal 0-5graded/ HPF [facility] UA Auto SS URINALYSISOrdered By: Malick Ho on 02-24-2024 UA Spec Desc Clean Catch (02/24/24 12:01 PM) Normal [facility] UA Auto SS Work Phone: ED Clinical Summaryon 2023 ED Clinical Summary ED Clinical Summary [place] [address] ED Clinical Summary Person Information Name: MAEGAN DYE/[facility] Age: 74 Years : 1950 Sex: Female Language: Dutch PCP: AZUL GORMAN CNP Marital Status: Phone: [phone] Visit Id: Visit Reason: Urinary retention; Trouble urinating Speciality: Acuity: 4 Enc Type: Emergency Med Service: Emergency Arrival: 02/23/2024 18:01:47 Discharge: 02/23/2024 19:58:25 LOS: 000 01:57 Checkin: 02/23/2024 18:01:47 Checkout: 02/23/2024 19:58:25 Dispo Type: Home (Routine DC) EVENTS: Event Name Event Status Request Date/Time Start Date/Time Complete Date/Time Arrive Complete 02/23/2024 18:01:47 02/23/2024 18:01:47 02/23/2024 18:01:47 Document Home Meds Request 02/23/2024 18:01:47 Triage Complete 02/23/2024 18:01:47 02/23/2024 18:31:45 02/23/2024 18:31:45 Registration Complete 02/23/2024 18:08:12 02/23/2024 18:08:12 02/23/2024 18:08:12 Reg Complete Request 02/23/2024 18:08:12 Reg Bed Request Complete 02/23/2024 18:08:12 02/23/2024 18:08:12 02/23/2024 18:08:12 Isolation Screening Request 02/23/2024 18:31:46 Bed Assign Complete 02/23/2024 18:33:49 02/23/2024 18:33:49 02/23/2024 18:33:49 Dr Exam Complete 02/23/2024 18:33:49 02/23/2024 18:36:29 02/23/2024 18:36:29 RN Exam Complete 02/23/2024 18:33:49 02/23/2024 19:54:58 02/23/2024 19:54:58 Registration Start 02/23/2024 18:36:29 02/23/2024 18:52:43 Patient Care Request 02/23/2024 18:40:06 Patient Care Request 02/23/2024 18:40:06 Pending Labs Complete 02/23/2024 18:40:06 02/23/2024 19:17:54 Pending Labs Inlab 02/23/2024 18:40:07 Dr Exam Complete 02/23/2024 18:41:54 02/23/2024 18:41:54 02/23/2024 18:41:54 Discharge Complete 02/23/2024 19:24:51 02/23/2024 19:58:32 02/23/2024 19:58:32 Fall Risk Request 02/23/2024 19:54:59 Transfer Complete 02/23/2024 19:58:32 02/23/2024 19:58:32 02/23/2024 19:58:32 ADDRESS: [facility] [address] [facility] [id number] [facility] DOC NOTES: MEDICAL INFORMATION: Prescriptions Given: Medications [...] 5. fluticasone nasal (fluticasone 0.05 mg/inh Nasal [place]) 2 Sprays Nasal Inhalation every day. each nostril. Refills: 5. Misc Prescription (Straight Catheters & Supplies) Use daily, as directed.. Refills: 5. Misc Prescription (walking boot) right foot knee high walking Size small boot dx m21.939, m14.369 Fax to [facility]. Refills: 0. multivitamin with minerals (Therapeutic Multiple [...] clonazepam. Refills: 3. PATIENT EDUCATION INFORMATION: Instructions: Acute Urinary Retention, Female, Hzft-zb-Xvft Follow up: With: Address: When: AZUL GORMAN [address] [place] [address] [employer] (1) In 3 days 02/26/2024 Comments: Call Dr for diagnosis based follow up DIAGNOSIS: Urinary retention Normal [facility] ED Patient Summaryon 024 ED Patient Summary ED Patient Summary [address] [address] Patient Discharge Instructions Person Information Name: MAEGAN DYE Age: 74 Years Arrival Date: 02/23/2024 18:01:47 Discharge Diagnosis: Urinary retention Primary Care Physician: AZUL GORMAN CNP Provider Information Primary Provider: Didier Hooks M.D. [employer] Set Up Operator Vertical:None The exam and treatment you received in the Emergency Department were for an urgent problem and are not intended as complete care. It is important that you follow up with a doctor, nurse practitioner, or physician?s assistant executive housekeeper for ongoing care. If your symptoms become worse or you do not improve as expected and you are unable to reach your usual health care provider, you should return to the Emergency Department. We are available 24 hours a day. MAEGAN DYE has been given the following list of patient education materials, prescriptions and follow-up instructions: Follow-up Instructions: With: Address: When: [place] [address] [employer] (1) In 3 days 02/26/2024 Comments: Call Dr for diagnosis based follow up In the event that this physician does not participate in your insurance network, please consult with your insurance company to find a nearby participating provider. Patient Education Materials: Acute Urinary Retention, Female, Ivax-ut-Glmr A MESSAGE TO ALL PATIENTS REGARDING OPIOIDS PRESCRIPTION OPIOIDS: WHAT YOU NEED TO KNOW Prescription opioids can be used to help relieve michlfnm-dh-azjypu pain and are often prescribed following a [...] be struggling with addiction, tell your health health care aide and ask for gu (more content not included)... Normal [facility] UA with Cult Rflxon 02-23-20 Type of Urine collection method Clean Catch Normal [facility] Comment on above: Result Comment: rosy ected collection of specimen 02/23/2024 19:23:26 EDT MA Performed By: #### 4 [id number] #### [facility] [address] [place] [address] Bilirubin Ql (U) Negative Normal Negative [facility] Comment on above: Performed By: #### 4 [id number] #### [facility] [address] [place] [address] Clarity (U) Clear Normal Clear [facility] Comment on above: Performed By: #### 4 [id number] #### [facility] [address] [place] [address] Color (U) Colorless Abnormal Yellow [facility] Comment on above: Result Comment: Micr oscopic readings are only performed on those samples that meet specific criteria set forth by [facility]. Performed By: #### 4 [id number] #### [facility] [address] [place] [address] Glucose Ql (U) Negative Normal Negative [facility] Comment on above: Performed By: #### 4 [id number] #### [facility] [address] [place] [address] Hemoglobin Auto test strip (U) [Mass/Vol] Negative Normal Negative [facility] Comment on above: Performed By: #### 4 [id number] #### [facility] [address] [place] [address] Ketones Auto test strip Ql (U) Negative Normal Negative [facility] Comment on above: Performed By: #### 4 [id number] #### [facility] [address] [place] [address] Leukocyte esterase Auto test strip Ql (U) Negative Normal Negative [facility] Comment on above: Performed By: #### 4 [id number] #### [facility] [address] [place] [address] Nitrite Auto test strip Ql (U) Negative Normal Negative [facility] Comment on above: Performed By: #### 4 [id number] #### [facility] [address] [place] [address] pH (U) 6.0 [pH] Invalid Interpretation Code 5.0-9.0 [facility] Comment on above: Performed By: #### 4 [id number] #### [facility] [address] [place] [address] Protein Ql (U) Negative Normal Negative [facility] Comment on above: Performed By: #### 4 [id number] #### [facility] [address] [place] [address] Specific gravity (U) [Rel density] 1.003 Invalid Interpretation Code 1.005-1.03 0 [facility] Comment on above: Performed By: #### 4 [id number] #### [facility] [address] [place] [address] Urobilinogen (U) [Mass/Vol] Negative Normal Negative [facility] Comment on above: Performed By: #### 4 [id number] #### [facility] [address] [place] [address] Type of Urine collection method Choi Normal [facility] Comment on above: Performed By: #### 4 [id number] #### [facility] [address] [place] [address] URINALYSISOrdered By: SYSTEM SYSTEM on 02-23-2024 Bilirubin Ql (U) Negative Normal Negativemg /dL [facility] UA Auto SS Clarity (U) Clear (02/23/24 7:07 PM) Normal Clear [facility] UA Auto SS Color (U) Colorless 1 *ABN* (02/23/24 7:07 PM) Invalid Interpretation Code Yellow [facility] UA Auto SS Comment on above: Interpretive Data: M icroscopic readings are only performed on those samples that meet specific criteria set forth by [facility]. Glucose Ql (U) Negative Normal Negativemg /dL [facility] UA Auto SS Hemoglobin Auto test strip (U) [Mass/Vol] Negative Normal Negativemg /dL [facility] UA Auto SS Ketones Auto test strip Ql (U) Negative Normal Negativemg /dL [facility] UA Auto SS Leukocyte esterase Auto test strip Ql (U) Negative Normal NegativeLe u/uL [facility] UA Auto SS Nitrite Auto test strip Ql (U) Negative Normal Negativemg /dL [facility] UA Auto SS pH (U) 6.0 *NA* (02/23/24 7:07 PM) Invalid Interpretation Code 5.0 - 9.0 [facility] UA Auto SS Protein Ql (U) Negative Normal Negativemg /dL [facility] UA Auto SS Specific gravity (U) [Rel density] 1.003 *NA* (02/23/24 7:07 PM) Invalid Interpretation Code 1.005 - 1.030 [facility] UA Auto SS Urobilinogen (U) [Mass/Vol] Negative Normal Negativemg /dL [facility] UA Auto SS URINALYSISOrdered By: Rodrigue ferrara on 02-23-2024 UA Spec Desc Clean Catch 2 (02/23/24 7:07 PM) Normal [facility] UA Auto SS Work Phone: Comment on above: Result Comment: rosy ected collection of specimen 02/23/2024 19:23:26 EDT MA Alanine aminotransferase [En zymatic activity/volume] in Serum or PlasmaOrdered By: Senthil Torres on 02-11-2024 ALT [Catalytic activity/Vol] 8 U/L Normal 7-[address] [facility] Comment on above: Performed By: #### C MP, PT, CBC, PTT, HS TROP #### [facility] [address] [place] [address] Albumin [Mass/volume] in Ser um or Plasma by Bromocresol green (BCG) dye binding methoOrdered By: Senthil Torres on 02-11-2024 Albumin BCG dye [Mass/Vol] 4.1 g/dL 3.5-5.[address] [facility] Alkaline phosphatase [Enzyma tic activity/volume] in Serum or PlasmaOrdered By: Senthil Torres on 02-11-2024 ALP [Catalytic activity/Vol] 103 U/L Normal 34-[address] [facility] Comment on above: Performed By: #### C MP, PT, CBC, PTT, HS TROP #### [facility] [address] Amphetamine Screen Ql (U)Ord ered By: Senthil Torres on 02-11-2024 Amphetamines Ql (U) Negative Negative [facility] Aspartate aminotransferase [ Enzymatic activity/volume] in Serum or PlasmaOrdered By: Senthil Torres on 02-11-2024 AST [Catalytic activity/Vol] 16 U/L Normal 13-[address] [facility] Comment on above: Performed By: #### C MP, PT, CBC, PTT, HS TROP #### [facility] [address] [place] [address] Automated basophil %Ordered By: Senthil Torres on 02-11-2024 Basophils/100 WBC (Bld) 0.3 % Normal . [facility] Comment on above: Performed By: #### C MP, PT, CBC, PTT, HS TROP #### [facility] [address] [place] [address] Automated basophil countOrde red By: Senthil Torres on 02-11-2024 Basophils (Bld) [#/Vol] 0.0 10*3/uL Normal 0.0-0.[address] [facility] Comment on above: Result Comment: PERF ORMED BY: [place] [address] PATHOLOGIST BRAKE OPERATOR HEAVY DUTY CORIE SILVA M.D. Performed By: #### C MP, PT, CBC, PTT, HS TROP #### [facility] [address] [place] [address] Automated blood monocyte cou ntOrdered By: Senthil Torres on 02-11-2024 Monocytes (Bld) [#/Vol] 0.5 10*3/uL Normal 0.0-0.[address] [facility] Comment on above: Performed By: #### C MP, PT, CBC, PTT, HS TROP #### [facility] [address] Automated eosinophil %Ordere d By: Senthil Torres on 02-11-2024 Eosinophils/100 WBC (Bld) 1.5 % Normal . [facility] Comment on above: Performed By: #### C MP, PT, CBC, PTT, HS TROP #### [facility] [address] Automated eosinophil countOr dered By: Senthil Torres on 02-11-2024 Eosinophils (Bld) [#/Vol] 0.1 10*3/uL Normal 0.0-0.[address] [facility] Comment on above: Performed By: #### C MP, PT, CBC, PTT, HS TROP #### [facility] [address] Automated monocyte %Ordered By: Senthil Torres on 02-11-2024 Monocytes/100 WBC (Bld) 6.3 % Normal . [facility] Comment on above: Performed By: #### C MP, PT, CBC, PTT, HS TROP #### [facility] [address] [address] Automated neutrophil %Ordere d By: Senthil Torres on 02-11-2024 Neutrophils/100 WBC (Bld) 74.1 % Normal . [facility] Comment on above: Performed By: #### C MP, PT, CBC, PTT, HS TROP #### [facility] [address] Barbiturates [Presence] in U rine by Screen methodOrdered By: Senthil Torres on 02-11-2024 Barbiturates Screen Ql (U) Negative Negative [facility] Benzodiazepines Screen Ql (U )Ordered By: Senthil Torres on 02-11-2024 Benzodiazepines Ql (U) Negative Negative [facility] Benzoylecgonine [Presence] i n Urine by Screen methodOrdered By: Senthil Torres on 02-11-2024 Benzoylecgonine Screen Ql (U) Negative Negative [facility] Bilirubin Test strip Ql (U)O rdered By: Senthil Torres on 02-11-2024 Bilirubin Ql (U) Negative Negative [facility] Bilirubin.total [Mass/volume ] in Serum or PlasmaOrdered By: Senthil Torres on 02-11-2024 Bilirubin [Mass/Vol] 0.4 mg/dL Normal 0.3-1.0 [facility] Comment on above: Performed By: #### C MP, PT, CBC, PTT, HS TROP #### [facility] [address] [place] [address] [place] Calcium [Mass/volume] in Ser um or PlasmaOrdered By: Senthil Torres on 02-11-2024 Calcium [Mass/Vol] 9.2 mg/dL Normal 8.6-10.3 [facility] Comment on above: Performed By: #### C MP, PT, CBC, PTT, HS TROP #### [facility] [address] Cannabinoids [Presence] in U rine by Screen methodOrdered By: Senthil Torres on 02-11-2024 Cannabinoids Screen Ql (U) Negative Negative [facility] Comment on above: These are unconfirme d results and should not be used for legal purposes. Drug Cut-Off Concentration: AMPH 1000 ng/mL PHILL 200 ng/mL ROBERT 200 ng/mL COCM 300 ng/mL OP 300 ng/mL PCP 25 ng/mL THC 20 ng/mL Carbon dioxide, total [Moles /volume] in Serum or PlasmaOrdered By: Senthil Torres on 02-11-2024 CO2 [Moles/Vol] 33.9 mmol/L High 21.0-31.0 [facility] Comment on above: Performed By: #### C MP, PT, CBC, PTT, HS TROP #### [facility] [address] [place] [id number] [place] Chloride [Moles/volume] in S clarisa or PlasmaOrdered By: Senthil Torres on 02-11-2024 Chloride [Moles/Vol] 95 mmol/L Low 98-107 [facility] Comment on above: Performed By: #### C MP, PT, CBC, PTT, HS TROP #### [facility] [address] [place] [id number] [place] Color of Urine by AutoOrdere d By: Senthil Torres on 02-11-2024 Color (U) Colorless Normal Yellow [facility] Comment on above: Order Comment: Name Collection Type:: Clean-Voided Midstream Performed By: #### C MP, PT, CBC, PTT, HS TROP #### [address] Complete Blood Count Auto Di ffon 02-11-2024 Mean Corpuscular HGB Conc 32.5 g/dL Normal 32.0-35.0 [facility] Comment on above: Performed By: #### C MP, PT, CBC, PTT, HS TROP #### [address] Monocytes/100 WBC (Bld) 17.16 % Normal 0.00-20.00 [facility] Comment on above: Performed By: #### C MP, PT, CBC, PTT, HS TROP #### [address] NRBC% 0.1 /100{WBC} Normal 0-0.5 [facility] Comment on above: Performed By: #### C MP, PT, CBC, PTT, HS TROP #### [address] Comprehensive Metabolic Pane isauro 02-11-2024 Albumin [Mass/Vol] 4.1 g/dL Normal 3.5-5.7 [facility] Comment on above: Performed By: #### C MP, PT, CBC, PTT, HS TROP #### [address] Creatinine Clr Calc Pharmacy 42.59 Normal [facility] Comment on above: Result Comment: PERF ORMED BY: [place] [address] PATHOLOGIST BRAKE OPERATOR HEAVY DUTY CORIE SILVA M.D. Performed By: #### C MP, PT, CBC, PTT, HS TROP #### [address] GFR/1.73 sq M.predicted MDRD (S/P/Bld) [Vol rate/Area] 59.094 mL/min/{1.73_m2} Normal [facility] Comment on above: Performed By: #### C MP, PT, CBC, PTT, HS TROP #### [address] Creatinine [Mass/volume] in Serum or PlasmaOrdered By: Senthil Torres on 02-11-2024 Creatinine [Mass/Vol] 0.99 mg/dL Normal 0.60-1.20 [facility] Comment on above: Performed By: #### C MP, PT, CBC, PTT, HS TROP #### [address] Drug Screen,Urineon 02-11-20 24 Amphetamine Screen,Urine Negative Normal Negative [facility] Comment on above: Performed By: #### C MP, PT, CBC, PTT, HS TROP #### [address] Barbiturate Screen,Urine Negative Normal Negative [facility] Comment on above: Performed By: #### C MP, PT, CBC, PTT, HS TROP #### [address] Benzodiazepines Screen,Urine Negative Normal Negative [facility] Comment on above: Performed By: #### C MP, PT, CBC, PTT, HS TROP #### [address] Cannabinoid Screen,Urine Negative Normal Negative [facility] Comment on above: Result Comment: Thes e are unconfirmed results and should not be used for legal purposes. Drug Cut-Off Concentration: AMPH 1000 ng/mL PHILL 200 ng/mL ROBERT 200 ng/mL COCM 300 ng/mL OP 300 ng/mL PCP 25 ng/mL THC 20 ng/mL PERFORMED BY: [place] [address] PATHOLOGIST BRAKE OPERATOR HEAVY DUTY CORIE SILVA M.D. Performed By: #### C MP, PT, CBC, PTT, HS TROP #### [address] Cocaine Screen,Urine Negative Normal Negative [facility] Comment on above: Performed By: #### C MP, PT, CBC, PTT, HS TROP #### [address] Opiate Screen,Urine Positive High Negative [facility] Comment on above: Performed By: #### C MP, PT, CBC, PTT, HS TROP #### [address] Phencyclidine Screen,Urine Negative Normal Negative [facility] Comment on above: Performed By: #### C MP, PT, CBC, PTT, HS TROP #### [address] Erythrocyte distribution wid th [Ratio] by Automated countOrdered By: Senthil Torres on 02-11-2024 Erythrocyte distribution width (RBC) [Ratio] 12.9 % Normal 11.9-15.[address] [facility] Comment on above: Performed By: #### C MP, PT, CBC, PTT, HS TROP #### [address] Erythrocytes [#/volume] in B lood by Automated countOrdered By: Senthil Torres on 02-11-2024 RBC (Bld) [#/Vol] 4.07 10*6/uL Normal 3.60-5.00 [facility] Comment on above: Performed By: #### C MP, PT, CBC, PTT, HS TROP #### [address] Ethanol [Mass/volume] in Ser um or PlasmaOrdered By: Senthil Torres on 02-11-2024 Ethanol [Mass/Vol] mg/dL Normal [facility] Comment on above: Performed By: #### C MP, PT, CBC, PTT, HS TROP #### [address] Ethanol [Mass/Vol] TNP [facility] Comment on above: Test not performed Ethyl Alcohol Profileon 01-24 Percent Ethanol Not performed Normal [facility] Comment on above: Result Comment: PERF ORMED BY: [place] [address] PATHOLOGIST BRAKE OPERATOR HEAVY D[employer]Y CORIE SILVA M.D. Performed By: #### C MP, PT, CBC, PTT, HS TROP #### [address] Glucose [Mass/volume] in Ser um or PlasmaOrdered By: Senthil Torres on 02-11-2024 Glucose [Mass/Vol] 139 mg/dL High 70-100 [facility] Comment on above: ADA recommended refe rence rangeRandom Glucose Reference Range is dependent on time and content of last meal. Glucose of more than 200 mg/dL in a nonstressed, ambulatory subject supports the diagnosis of Diabetes Mellitus. Result Comment: [place] Glucose Reference Range is dependent on time and content of last meal. Glucose of more than 200 mg/dL in a nonstressed, ambulatory subject supports the diagnosis of Diabetes Mellitus. ADA recommended reference range Performed By: #### C MP, PT, CBC, PTT, HS TROP #### [address] Glucose [Mass/volume] in Uri ne by Test stripOrdered By: Senthil Torres on 02-11-2024 Glucose Test strip (U) [Mass/Vol] Normal mg/dL Normal [facility] Hematocrit [Volume Fraction] of Blood by Automated countOrdered By: Senthil Torres on 02-11-2024 Hematocrit (Bld) [Volume fraction] 37.1 % Normal 34.0-46.[address] [facility] Comment on above: Performed By: #### C MP, PT, CBC, PTT, HS TROP #### [address] Hemoglobin Test strip Ql (U) Ordered By: Senthil Torres on 02-11-2024 Hemoglobin Ql (U) Negative Negative [facility] Hemoglobin [Mass/volume] in BloodOrdered By: Senthil Torres on 02-11-2024 Hemoglobin (Bld) [Mass/Vol] 12.1 g/dL Normal 11.8-15.[address] [facility] Comment on above: Performed By: #### C MP, PT, CBC, PTT, HS TROP #### [facility] [address] [place] [address] [place] Ketones [Presence] in Urine by Test stripOrdered By: Senthil Torres on 02-11-2024 Ketones Ql (U) Negative Normal Negative [facility] Comment on above: Order Comment: Name Collection Type:: Clean-Voided Midstream Performed By: #### C MP, PT, CBC, PTT, HS TROP #### [facility] [address] [place] [address] [place] Leukocyte esterase [Presence ] in Urine by Test stripOrdered By: Senthil Torres on 02-11-2024 Leukocyte esterase Test strip Ql (U) Negative Normal Negative [facility] Comment on above: Order Comment: Name Collection Type:: Clean-Voided Midstream Performed By: #### C MP, PT, CBC, PTT, HS TROP #### [place] [address] [place] Leukocytes [#/volume] correc kenyatta for nucleated erythrocytes in Blood by Automated counOrdered By: Senthil Torres on 02-11-2024 WBC corrected for nucl RBC Auto (Bld) [#/Vol] 7.6 10*3/uL 3.8-11.[address] [facility] Leukocytes [#/volume] in Blo od by Automated countOrdered By: Senthil Torres on 02-11-2024 WBC (Bld) [#/Vol] 7.6 10*3/uL Normal 3.8-11.6 [facility] Comment on above: Performed By: #### C MP, PT, CBC, PTT, HS TROP #### [place] [address] [place] Lymphocytes [#/volume] in Bl ood by Automated countOrdered By: Senthil Torres on 02-11-2024 Lymphocytes (Bld) [#/Vol] 1.4 10*3/uL Normal 1.00-4.[address] [facility] Comment on above: Performed By: #### C MP, PT, CBC, PTT, HS TROP #### [place] [address] [place] Lymphocytes/100 leukocytes i n Blood by Automated countOrdered By: Senthil Torres on 02-11-2024 Lymphocytes/100 WBC (Bld) 17.8 % Normal . [facility] Comment on above: Performed By: #### C MP, PT, CBC, PTT, HS TROP #### [facility] [address] MCH [Entitic mass] by Automa kenyatta countOrdered By: Senthil Torres on 02-11-2024 MCH (RBC) [Entitic mass] 29.6 pg Normal 24.7-34.[address] [facility] Comment on above: Performed By: #### C MP, PT, CBC, PTT, HS TROP #### [facility] [address] [place] [address] MCHC Auto (RBC) [Mass/Vol]Or dered By: Senthil Torres on 02-11-2024 MCHC (RBC) [Mass/Vol] 32.5 g/dL 32.0-35.0 [facility] MCV [Entitic volume] by Auto mated countOrdered By: Senthil Torres on 02-11-2024 MCV (RBC) [Entitic vol] 91.2 fL Normal 80-[address] [facility] Comment on above: Performed By: #### C MP, PT, CBC, PTT, HS TROP #### [facility] [address] [place] [address] Monocyte distribution width [Entitic volume] in Blood by AutomatedOrdered By: Senthil Torres on 02-11-2024 Monocyte distribution width Auto (Bld) [Entitic vol] 17.16 % 0.00-20.[address] [facility] Neutrophils [#/volume] in Bl ood by Automated countOrdered By: Senthil Torres on 02-11-2024 Neutrophils (Bld) [#/Vol] 5.7 10*3/uL Normal 1.8-7.[address] [facility] Comment on above: Performed By: #### C MP, PT, CBC, PTT, HS TROP #### [facility] [address] [place] [address] Nitrite Test strip Ql (U)Ord ered By: Senthil Torres on 02-11-2024 Nitrite Ql (U) Negative Negative [facility] No Panel InformationOrdered By: Senthil Torres on 02-11-2024 Blood Gas Critical Value See comment [facility] Comment on above: Critical Value razo d on: 02/11/2024 at 15:53 Blood Gas Sample Site Venous [facility] FiO2 28 % [facility] Oxygen Delivery Device Nasal cannula [facility] Venous Blood Base Excess 3.0 mmol/L -3.0-3.[address] [facility] Venous Blood Oxygen Content 8.1 mmol/L 6.6-9.[address] [facility] Venous Blood Oxygen Saturation 99.3 % High 73.0-76.[address] [facility] Venous Blood Partial Pressure CO2 63.0 mm[Hg] High 38.0-50.[address] [facility] Venous Blood Partial Pressure O2 184.2 mm[Hg] High 35.0-45.[address] [facility] Venous Blood pH 7.31 Low 7.32-7.[address] [facility] Estimated GFR (CKD-EPI) 59.094 mL/Min [facility] Creatinine Clearance (Chem 42.[address] [facility] Nucleated erythrocytes [Pres ence] in Blood by Automated countOrdered By: Senthil Torres on 02-11-2024 Nucleated RBC Auto Ql (Bld) 0.1 /100{WBC} 0-0.[address] [facility] Opiates [Presence] in Urine by Screen methodOrdered By: Senthil Torres on 02-11-2024 Opiates Screen Ql (U) Positive High Negative [facility] Phencyclidine Screen Ql (U)O rdered By: Senthil Torres on 02-11-2024 Phencyclidine Ql (U) Negative Negative [facility] Platelet mean volume [Entiti c volume] in Blood by Automated countOrdered By: Senthil Torres on 02-11-2024 Platelet mean volume (Bld) [Entitic vol] 7.1 fL Normal 6.3-10.[address] [facility] Comment on above: Performed By: #### C MP, PT, CBC, PTT, HS TROP #### [address] Platelets [#/volume] in Bloo d by Automated countOrdered By: Senthil Torres on 02-11-2024 Platelets (Bld) [#/Vol] 254 10*3/uL Normal 150-[address] [facility] Comment on above: Performed By: #### C MP, PT, CBC, PTT, HS TROP #### [address] Potassium [Moles/volume] in Serum or PlasmaOrdered By: Senthil Torres on 02-11-2024 Potassium [Moles/Vol] 4.0 mmol/L Normal 3.5-5.1 [facility] Comment on above: Performed By: #### C MP, PT, CBC, PTT, HS TROP #### [address] Protein Test strip (U) [Mass /Vol]Ordered By: Senthil Torres on 02-11-2024 Protein (U) [Mass/Vol] Negative Negative [facility] Protein [Mass/volume] in Ser um or PlasmaOrdered By: Senthil Torres on 02-11-2024 Protein [Mass/Vol] 6.9 g/dL Normal 6.4-8.9 [facility] Comment on above: Performed By: #### C MP, PT, CBC, PTT, HS TROP #### [address] Serum globulin measurement b y calculation (mass/volume)Ordered By: Senthil Torres on 02-11-2024 Globulin (S) [Mass/Vol] 2.8 g/dL [facility] Comment on above: Performed By: #### C MP, PT, CBC, PTT, HS TROP #### [facility] [address] [place] [address] Serum or plasma albumin/glob ulin mass ratioOrdered By: Senthil Torres on 02-11-2024 Albumin/Globulin [Mass ratio] 1.5 {ratio} [facility] Comment on above: Performed By: #### C MP, PT, CBC, PTT, HS TROP #### [address] Serum or plasma anion gap de terminationOrdered By: Senthil Torres on 02-11-2024 Anion gap [Moles/Vol] 8.1 mmol/L Normal 6.0-15.0 [facility] Comment on above: Performed By: #### C MP, PT, CBC, PTT, HS TROP #### [facility] [address] Sodium [Moles/volume] in Ser um or PlasmaOrdered By: Senthil Torres on 02-11-2024 Sodium [Moles/Vol] 133 mmol/L Low 136-145 [facility] Comment on above: Performed By: #### C MP, PT, CBC, PTT, HS TROP #### [address] Specific gravity Test strip (U) [Rel density]Ordered By: Setnhil Torres on 02-11-2024 Specific gravity (U) [Rel density] 1.005 1.001-1.[address] [facility] Urea nitrogen [Mass/volume] in Serum or PlasmaOrdered By: Senthil Torres on 02-11-2024 Urea nitrogen [Mass/Vol] 9 mg/dL Normal 7-[address] [facility] Comment on above: Performed By: #### C MP, PT, CBC, PTT, HS TROP #### [address] Urinalysison 02-11-2024 Bilirubin,Urine Negative Normal Negative [facility] Comment on above: Order Comment: Name Collection Type:: Clean-Voided Midstream Performed By: #### C MP, PT, CBC, PTT, HS TROP #### [address] Glucose Ql (U) Normal Normal Normal [facility] Comment on above: Order Comment: Name Collection Type:: Clean-Voided Midstream Performed By: #### C MP, PT, CBC, PTT, HS TROP #### [address] Nitrite,Urine Negative Normal Negative [facility] Comment on above: Order Comment: Name Collection Type:: Clean-Voided Midstream Performed By: #### C MP, PT, CBC, PTT, HS TROP #### [place] [id number] [place] Occult Blood,Urine Negative Normal Negative [facility] Comment on above: Order Comment: Name Collection Type:: Clean-Voided Midstream Result Comment: PERF ORMED BY: [place] [address] PATHOLOGIST BRAKE OPERATOR HEAVY DUTY CORIE SILVA M.D. Performed By: #### C MP, PT, CBC, PTT, HS TROP #### [address] Protein,Urine Negative Normal Negative [facility] Comment on above: Order Comment: Name Collection Type:: Clean-Voided Midstream Performed By: #### C MP, PT, CBC, PTT, HS TROP #### [address] Specificy [place],Urine 1.005 Normal 1.001-1.03 0 [facility] Comment on above: Order Comment: Name Collection Type:: Clean-Voided Midstream Performed By: #### C MP, PT, CBC, PTT, HS TROP #### [address] Urobilinogen,Urine Normal Normal Normal [facility] Comment on above: Order Comment: Name Collection Type:: Clean-Voided Midstream Performed By: #### C MP, PT, CBC, PTT, HS TROP #### [address] Urine appearanceOrdered By: Senthil Torres on 02-11-2024 Appearance (U) Clear Normal Clear [facility] Comment on above: Order Comment: Name Collection Type:: Clean-Voided Midstream Performed By: #### C MP, PT, CBC, PTT, HS TROP #### [address] Urobilinogen Test strip (U) [Mass/Vol]Ordered By: Senthil Torres on 02-11-2024 Urobilinogen (U) [Mass/Vol] Normal mg/dL Normal [facility] Venous Blood GasOrdered By: Senthil Torres on 02-11-2024 CO2 [Moles/Vol] 32.9 mmol/L High 24.0-29.0 [facility] Comment on above: Performed By: #### C UU, ADDONUAPLUS #### [address] HCO3 (Bld) [Moles/Vol] 30.9 mmol/L High 23.0-29.0 [facility] Comment on above: Performed By: #### C UU, ADDONUAPLUS #### [address] Venous Blood Gason Oxygen Device Nasal Cannula Normal [facility] Comment on above: Performed By: #### C UU, ADDONUAPLUS #### [address] Respiratory Critical Normal [facility] Comment on above: Result Comment: Crit ical Value called on: 02/11/2024 at 15:53 PERFORMED BY: [place] [address] PATHOLOGIST BRAKE OPERATOR HEAVY DUTY CORIE SILVA M.D. Performed By: #### C UU, ADDONUAPLUS #### [address] VBG Base Excess 3.0 mmol/L Normal -3.0-3.0 [facility] Comment on above: Performed By: #### C UU, ADDONUAPLUS #### [address] VBG Draw Site Venous Normal [facility] Comment on above: Performed By: #### C UU, ADDONUAPLUS #### [address] VBG Frac Inspired O2 28 % Normal [facility] Comment on above: Performed By: #### C UU, ADDONUAPLUS #### [address] VBG O2 Content 8.1 mmol/L Normal 6.6-9.7 [facility] Comment on above: Performed By: #### C UU, ADDONUAPLUS #### [facility] [address] VBG Oxygen Saturation 99.3 % Off scale high 73.0-76.0 [facility] Comment on above: Performed By: #### C UU, ADDONUAPLUS #### [facility] [address] [place] [address] VBG PCO2 63.0 mm[Hg] High 38.0-50.0 [facility] Comment on above: Performed By: #### C UU, ADDONUAPLUS #### [facility] [address] [place] [address] VBG PH Venous PH 7.31 Low 7.32-7.43 [facility] Comment on above: Performed By: #### C UU, ADDONUAPLUS #### [facility] [address] [place] [address] VBG PO2 184.2 mm[Hg] Off scale high 35.0-45.0 [facility] Comment on above: Performed By: #### C UU, ADDONUAPLUS #### [address] pH of Urine by Test stripOrd ered By: Senthil Torres on 02-11-2024 pH (U) 6.0 [pH] Normal 5.0-9.[address] [facility] Comment on above: Order Comment: Name Collection Type:: Clean-Voided Midstream Performed By: #### C MP, PT, CBC, PTT, HS TROP #### [facility] [address] [place] [address] [place] .UA With Cult Reflexon 02-05 Bilirubin Ql (U) Negative Normal Negative [facility] Comment on above: Performed By: #### 1 [id number] #### [facility] [address] [place] [address] Clarity (U) CLEAR Normal Clear [facility] Comment on above: Performed By: #### 1 [id number] #### [facility] [address] [place] [address] Color (U) YELLOW Normal Yellow [facility] Comment on above: Performed By: #### 1 [id number] #### [facility] [address] [place] [address] Epithelial cells.squamous LM.HPF (Urine sed) [#/Area] 0-2 Normal [facility] Comment on above: Performed By: #### 1 [id number] #### [facility] [address] [place] [address] Glucose Ql (U) Negative Normal Negative [facility] Comment on above: Performed By: #### 1 [id number] #### [facility] [address] [place] [address] Hemoglobin Auto test strip (U) [Mass/Vol] Negative Normal Negative [facility] Comment on above: Performed By: #### 1 [id number] #### [facility] [address] [place] [address] Ketones Ql (U) Negative Normal Negative [facility] Comment on above: Performed By: #### 1 [id number] #### [facility] [address] [place] [address] Leukocyte esterase Auto test strip Ql (U) Negative Normal Negative [facility] Comment on above: Performed By: #### 1 [id number] #### [facility] [address] [place] [address] Nitrite Auto test strip Ql (U) Negative Normal Negative [facility] Comment on above: Performed By: #### 1 [id number] #### [facility] [address] [place] [address] pH (U) 6.0 [pH] Normal 5.0-9.0 [facility] Comment on above: Performed By: #### 1 [id number] #### [facility] [address] [place] [address] Protein Ql (U) Negative Normal Negative [facility] Comment on above: Performed By: #### 1 [id number] #### [facility] [address] [place] [address] RBC Ql (U) 0-3 Normal 0-3 [facility] Comment on above: Performed By: #### 1 [id number] #### [facility] [address] [place] [address] Specific gravity (U) [Rel density] 1.020 Normal 1.005-1.03 0 [facility] Comment on above: Performed By: #### 1 [id number] #### [facility] [address] [place] [address] Type of Urine collection method Clean Catch Normal [facility] [facility] Comment on above: Performed By: #### 1 [id number] #### [facility] [address] [place] [address] Urobilinogen Qn (U) 0.2 mg/dL Normal 0.0-1.0 [facility] Comment on above: Performed By: #### 1 [id number] #### [facility] [address] [place] [address] WBC LM.HPF (Urine sed) [#/Area] 0-5 Normal 0-5 [facility] Comment on above: Performed By: #### 1 [id number] #### [facility] [address] [place] [address] BMPon 02-06-2024 Anion gap [Moles/Vol] 8 mmol/L Normal 6-16 [facility] Comment on above: Performed By: #### 2 [id number] #### [facility] [address] [place] [address] Calcium [Mass/Vol] 8.9 mg/dL Normal 8.9-11.1 [facility] Comment on above: Performed By: #### 2 [id number] #### [facility] [address] [place] [address] Chloride [Moles/Vol] 100 mmol/L Low 101-111 [facility] Comment on above: Performed By: #### 2 [id number] #### [facility] [address] [place] [address] CO2 [Moles/Vol] 31 mmol/L Normal 21-31 [facility] Comment on above: Performed By: #### 2 [id number] #### [facility] [address] [place] [address] Creatinine [Mass/Vol] 1.0 mg/dL Normal 0.5-1.3 [facility] Comment on above: Performed By: #### 2 [id number] #### [facility] [address] [place] [address] Glucose [Mass/Vol] 102 mg/dL Normal 55-199 [facility] Comment on above: Performed By: #### 2 [id number] #### [facility] [address] [place] [address] Potassium [Moles/Vol] 4.6 mmol/L Normal 3.5-5.3 [facility] Comment on above: Performed By: #### 2 [id number] #### [facility] [address] [place] [address] Sodium [Moles/Vol] 134 mmol/L Low 135-145 [facility] Comment on above: Performed By: #### 2 [id number] #### [facility] [address] [place] [address] Urea nitrogen [Mass/Vol] 16 mg/dL Normal 5-21 [facility] Comment on above: Performed By: #### 2 [id number] #### [facility] [address] [place] [address] Urea nitrogen/Creatinine [Mass ratio] 16 No Units Normal 10-20 [facility] Comment on above: Performed By: #### 2 [id number] #### [facility] [address] [place] [address] CBC w/ Auto Diffon 4 Basophils/100 WBC (Bld) 0.2 % Normal 0.0-2.0 [facility] Comment on above: Performed By: #### 2 [id number] #### [facility] [address] [place] [address] Basophils/Leukocytes Auto (Bld) [Pure # fraction] 0.0 E9/L Normal 0.0-0.2 [facility] Comment on above: Performed By: #### 2 [id number] #### [facility] [address] [place] [address] Eosinophils (Bld) [#/Vol] 0.2 E9/L Normal 0.0-0.5 [facility] Comment on above: Performed By: #### 2 [id number] #### [facility] [address] [place] [address] Eosinophils/100 WBC (Bld) 2.3 % Normal 0.0-8.0 [facility] Comment on above: Performed By: #### 2 [id number] #### [facility] [address] [place] [address] Erythrocyte distribution width (RBC) [Ratio] 12.8 % Normal 10.9-14.2 [facility] Comment on above: Performed By: #### 2 [id number] #### [facility] [address] [place] [address] Hematocrit (Bld) [Volume fraction] 36.8 % Normal 34.0-46.0 [facility] Comment on above: Performed By: #### 2 [id number] #### [facility] [address] [place] [address] Hemoglobin (Bld) [Mass/Vol] 12.0 g/dL Normal 12.0-16.0 [facility] Comment on above: Performed By: #### 2 [id number] #### [facility] [address] [place] [address] Lymphocytes (Bld) [#/Vol] 1.5 E9/L Normal 1.0-4.0 [facility] Comment on above: Performed By: #### 2 [id number] #### [facility] [address] [place] [address] Lymphocytes/100 WBC (Bld) 21.1 % Normal 14.0-50.0 [facility] Comment on above: Performed By: #### 2 [id number] #### [facility] [address] [place] [address] MCH (RBC) [Entitic mass] 29.4 pg Normal 27.0-34.0 [facility] Comment on above: Performed By: #### 2 [id number] #### [facility] [address] [place] [address] MCHC (RBC) [Mass/Vol] 32.5 g/dL Normal 31.4-36.0 [facility] Comment on above: Performed By: #### 2 [id number] #### [facility] [address] [place] [address] MCV (RBC) [Entitic vol] 90.3 fL Normal 80.0-100.0 [facility] Comment on above: Performed By: #### 2 [id number] #### [facility] [address] [place] [address] Monocytes (Bld) [#/Vol] 0.7 E9/L Normal 0.2-1.0 [facility] Comment on above: Performed By: #### 2 [id number] #### [facility] [address] [place] [address] Neutrophils (Bld) [#/Vol] 4.8 E9/L Normal 2.0-7.5 [facility] Comment on above: Performed By: #### 2 [id number] #### [facility] [address] [place] [address] Neutrophils/100 WBC (Bld) 67.3 % Normal 36.0-75.0 [facility] Comment on above: Performed By: #### 2 [id number] #### [facility] [address] [place] [address] Platelet mean volume (Bld) [Entitic vol] 7.0 fL Normal 6.4-10.8 [facility] Comment on above: Performed By: #### 2 [id number] #### [facility] [address] [place] [address] Platelets (Bld) [#/Vol] 263.0 E9/L Normal 150.0-500. 0 [facility] Comment on above: Performed By: #### 2 [id number] #### [facility] [address] [place] [address] RBC (Bld) [#/Vol] 4.1 E12/L Low 4.3-5.9 [facility] Comment on above: Performed By: #### 2 [id number] #### [facility] [address] [place] [address] WBC corrected for nucl RBC Auto (Bld) [#/Vol] 7.2 E9/L Normal 4.0-11.0 [facility] Comment on above: Performed By: #### 2 [id number] #### [facility] [address] [place] [address] CHEMISTRYOrdered By: Evan Michaud on 02-06-2024 Anion gap [Moles/Vol] 8 mmol/L Normal 6 - 16 mEq/L [facility] Calcium [Mass/Vol] 8.9 mg/dL Normal 8.9 - 11. 1 mg/dL [facility] Chloride [Moles/Vol] 100 mmol/L Low 101 - 1 11 mmol/L [facility] CO2 [Moles/Vol] 31 mmol/L Normal 21 - 31 mmol/L [facility] Creatinine [Mass/Vol] 1.0 mg/dL Normal 0.5 - 1.3 mg/dL [facility] eGFR 58 mL/min/1.73 m2 Low >=59mL/min /1.73 m2 [facility] Glucose [Mass/Vol] 102 mg/dL Normal 55 - 199 mg/dL [facility] Potassium [Moles/Vol] 4.6 mmol/L Normal 3.5 - 5.3 mmol/L [facility] Sodium [Moles/Vol] 134 mmol/L Low 135 - 145 mmol/L [facility] Urea nitrogen [Mass/Vol] 16 mg/dL Normal 5 - 21 mg/dL [facility] Urea nitrogen/Creatinine [Mass ratio] 16 mg/mg Normal 10 - 20 [facility] S ED Clinical Summaryon 2023 ED Clinical Summary ED Clinical Summary [address] [address] ED Clinical Summary [facility] Age[facility] 74 Years : 1950 Sex: Female Language: Dutch PCP: AZUL GORMAN CNP Marital Status: Phone: [phone] Visit Id: Visit Reason: Urinary frequency; CAN'T URINATE, AMS Speciality: Acuity: 3 Enc Type: Emergency Med Service: Emergency Arrival: 02/06/2024 07:33:06 Discharge: 02/06/2024 10:47:54 LOS: 000 03:14 Checkin: 02/06/2024 07:33:06 Checkout: 02/06/2024 10:47:54 Dispo Type: Home (Routine DC) EVENTS: Event Name Event Status Request Date/Time Start Date/Time Complete Date/Time Arrive Complete 02/06/2024 07:33:06 02/06/2024 07:33:06 02/06/2024 07:33:06 Document Home Meds Request 02/06/2024 07:33:06 Triage Complete 02/06/2024 07:33:06 02/06/2024 07:46:23 02/06/2024 07:46:23 Bed Assign Complete 02/06/2024 07:41:11 02/06/2024 07:41:11 02/06/2024 07:41:11 Dr Exam Complete 02/06/2024 07:41:11 02/06/2024 07:42:05 02/06/2024 07:42:05 RN Exam Complete 02/06/2024 07:41:11 02/06/2024 10:02:16 02/06/2024 10:02:16 Pending Labs Complete 02/06/2024 07:41:43 02/06/2024 09:39:32 Registration Complete 02/06/2024 07:42:05 02/06/2024 08:09:37 02/06/2024 08:09:37 Isolation Screening Request 02/06/2024 07:46:24 Reg Complete Request 02/06/2024 08:09:37 Reg Bed Request Complete 02/06/2024 08:09:37 02/06/2024 08:09:37 02/06/2024 08:09:37 Pending Labs Complete 02/06/2024 09:02:59 02/06/2024 09:02:59 02/06/2024 09:08:01 Lab Complete 02/06/2024 09:02:59 02/06/2024 09:02:59 02/06/2024 09:08:01 Urine Collect Complete 02/06/2024 09:02:59 02/06/2024 09:02:59 02/06/2024 09:08:01 Pending Labs Complete 02/06/2024 09:28:45 02/06/2024 10:24:53 Lab Complete 02/06/2024 09:28:45 02/06/2024 10:24:53 Pending Labs Collected 02/06/2024 09:39:33 02/06/2024 09:39:33 Lab Collected 02/06/2024 09:39:33 02/06/2024 09:39:33 Pending Labs Complete 02/06/2024 09:42:34 02/06/2024 09:42:34 02/06/2024 10:26:13 Lab Complete 02/06/2024 09:42:34 02/06/2024 09:42:34 02/06/2024 10:26:13 Discharge Complete 02/06/2024 10:38:36 02/06/2024 10:48:01 02/06/2024 10:48:01 Transfer Complete 02/06/2024 10:48:01 02/06/2024 10:48:01 02/06/2024 10:48:01 ADDRESS: [facility] [address] [facility] [phone] PHYS DOC NOTES: MEDICAL INFORMATION: Prescriptions Given: New Medications [facility]/pharmacy #[id number], [address] [place], [place] [id number], [phone] cephalexin (Keflex 500 mg Cap) 1 Capsules By Mouth every 12 hours for 5 Days. Refills: 0. Medications to Continue with [...] 5. fluticasone nasal (fluticasone 0.05 mg/inh Nasal [place]) 2 Sprays Nasal Inhalation every day. each nostril. Refills: 5. Misc Prescription (Straight Catheters & Supplies) Use daily, as directed.. Refills: 5. Misc Prescription (walking boot) right foot knee high walking Size small boot dx m21.969, m14.679 [facility]. Refills: 0. multivitamin with minerals (Therapeutic Multiple [...] clonazepam. Refills: 3. PATIENT EDUCATION INFORMATION: Instructions: Urinary Tract Infection, Adult, Royb-xx-Tjep Follow up: With: Address: When: AZUL GORMAN [address] [place] [address] Business (1) In 3 days DIAGNOSIS: Dysuria Normal [facility] ED Note-Physicianon 02-06-20 ED Note-Physician ED Note-Physician Basic Information Time Seen: Chandan Adhikari DO 02/06/2024 07:42 Chief Complaint urinary frequency but feeling of not emptying bladder. more confused over time. been checked for dementia History of Present Illness 74 female presents emergency department with urinary frequency and feeling of not emptying her bladder. Patient states that this has been ongoing for the last couple of days family's concern she may have UTI because she has had some problems with her bladder previously. Patient denies any fevers or chills she has had nausea 1 episode of vomiting yesterday. She does describe a discoloration to her urine yesterday but states it seems to be back to normal today. She has not noticed any hematuria. No prior treatments at home. No other aggravating or relieving factors no other associated symptoms no other prior treatments or complaints. Family: Reviewed and noncontributory Social: lives at home Review of systems negative unless otherwise specified in the HPI. Physical Exam Vitals & Measurements T: 36.9 ?C(Oral) HR: 73(Peripheral) RR: 18 BP: 132/81 SpO2: 95% HT: 162 cm WT: 61 kg BMI: 23.24 General: The patient appears well and in no apparent distress. Patient is resting comfortably on cart. Skin: Warm, dry, no pallor noted. Head: Normocephalic, atraumatic Neck: No JVD Eye: PERRLA, EOMI ENT: Moist mucus membranes Cardiovascular: Regular rate normal peripheral perfusion Respiratory: No respiratory distress no accessory muscle use no obvious audible wheezing Chest Wall: no deformity Musculoskeletal: normal ROM, no deformity, no swelling GI: Soft no obvious distention. No rebound or rigidity. No guarding. No tenderness. Neurological: A&O moves all extremities equal strength and symmetry Psychiatric: Cooperative and appropriate Medical Decision Making Initial urinalysis was equivocal. Therefore blood work was obtained and this was negative. I did review culture results it does look like patient had positive Klebsiella culture from 7 days ago. She believes that she took her Bactrim but is not entirely sure therefore she will be covered with Keflex discharged home pending culture results follow-up in the outpatient setting return to ER symptoms change or worsen. Assessment/Plan Dysuria (R30.0: Dysuria) Orders: cephalexin, 500 mg = 1 cap(s), Oral, q12hr, X 5 day(s), # 10 cap(s), Refills(s) 0, Pharmacy: [facility]/pharmacy #[id number], 162, cm, 02/06/24 7:46:00 EDT, Height/Length Dosing, 61, kg, 02/06/24 7:46:00 EDT, Weight Dosing ondansetron, 4 mg = 1 tab(s), Tab-Dis, SubLingual, Once, Stop date 02/06/24 8:42:00 EDT, Start date 02/06/24 8:42:00 EDT .UA With Cult Reflex Basic Metabolic Panel CBC w/ Auto Diff eGFR UA with Cult Rflx Urine Culture Medications Administered Given [id number] [F], 4 mg, SubLingual Disposition Plan Discharge Prescription List Prescriptions Keflex 500 mg Cap, 500 mg= 1 cap(s), Oral, q12hr Follow-up With When Contact Information AZUL GORMAN In 3 days [address] [place], [place] [phone] Business (1) Additional Instructions: Patient Education Urinary Tract Infection, Adult, Zizi-dv-Iuxk Problem List/Past Medical History Ongoing Acute UTI [...] Vitamin D deficiency Historical Accidental fall Agent [place] ASTHMA Benzodiazepine withdrawal Bipolar disorder Callus of [...] HTN - Hypertension Hypertension Hypo-osmolality and or hyponatremia Hypokalemia Laryngitis Left hip pain multiple broken bones Neurogenic bladder Obesity Obesity due to excess calories Oral thrush Panic disorder with agoraphobia Physical deconditioning Right foot pain Seizure Smoker Procedure/Surgical History Urodynamics (07/06/2019), cysto w/ UD (07/05/2019), left femur ORIF w femoral cortical strut (more content not included)... Normal [facility] Comment on above: Result Comment: Elec tronically Signed By: Chandan Adhikari DO\.br\Date and Time Signed: 02/06/24 10:40 EDT ED Patient Summaryon 024 ED Patient Summary ED Patient Summary [address] [address] Patient Discharge Instructions Person Information Name: MAEGAN DYE Age: 74 Years Arrival Date: 02/06/2024 07:33:06 Discharge Diagnosis: Dysuria Primary Care Physician: AZUL GORMAN CNP Provider Information Primary Provider: Chandan Adhikari DO [employer] Set Up Operator Vertical:None The exam and treatment you received in the Emergency Department were for an urgent problem and are not intended as complete care. It is important that you follow up with a doctor, nurse practitioner, or physician?s assistant executive housekeeper for ongoing care. If your symptoms become worse or you do not improve as expected and you are unable to reach your usual health care provider, you should return to the Emergency Department. We are available 24 hours a day. MAEGAN YDE has been given the following list of patient education materials, prescriptions and follow-up instructions: Follow-up Instructions: With: Address: When: AZUL GORMAN [address] [place], [place] [address] [phone] Business (1) In 3 days In the event that this physician does not participate in your insurance network, please consult with your insurance company to find a nearby participating provider. Patient Education Materials: Urinary Tract Infection, Adult, Efrl-sb-Shhu A MESSAGE TO ALL PATIENTS REGARDING OPIOIDS PRESCRIPTION OPIOIDS: WHAT YOU NEED TO KNOW Prescription opioids can be used to help relieve kgacrhou-gt-afhusw pain and are often prescribed following a [...] be struggling with addiction, tell your health health care aide and ask for guidance or call [facility]?S [employer] Helpline at [phone]. g Source: [place] (more content not included)... Normal [facility] Extra Blueon 02-06-2024 Tube Collected Plasma Yes Invalid Interpretation Code [facility] Comment on above: Performed By: #### 1 [id number] #### [facility] [address] [place] [address] HEMATOLOGYOrdered By: SYSTEM SYSTEM on 02-06-2024 Basophils/100 WBC (Bld) 0.2 % Normal 0.0 [...] % Remisol Heme Hematocrit (Bld) [Volume fraction] 36.8 % Normal 34.0 - 46.0 % Remisol Heme Hemoglobin (Bld) [Mass/Vol] 12.0 g/dL Normal 12.0 - 16.0 gm/dL [facility] Lymphocytes (Bld) [#/Vol] 1.5 E9/L Normal 1.0 - 4.0 E9/L [facility] Lymphocytes/100 WBC (Bld) 21.1 % Normal 14.0 - 50.0 % Remisol Heme MCH (RBC) [Entitic mass] 29.4 pg Normal 27.0 - 34.0 pg Remisol Heme MCHC (RBC) [Mass/Vol] 32.5 g/dL Normal 31.4 - 36.0 gm/dL [facility]e MCV (RBC) [Entitic vol] 90.3 fL Normal 80.0 - 100.0 fL [facility] Monocytes (Bld) [#/Vol] 0.7 E9/L Normal 0.2 - 1.0 E9/L [facility] Monocytes/100 WBC (Bld) 9.1 % Normal 4.0 - 14.0 % [facility] Neutrophils (Bld) [#/Vol] 4.8 E9/L Normal 2.0 - 7.5 E9/L [facility] Neutrophils/100 WBC (Bld) 67.3 % Normal 36.0 - 75.0 % [facility] Platelet mean volume (Bld) [Entitic vol] 7.0 fL Normal 6.4 - 10.8 fL [facility] Platelets (Bld) [#/Vol] 263.0 E9/L Normal 150.0 - 500.0 E9/L [facility] RBC (Bld) [#/Vol] 4.1 E12/L Low 4.3 - 5.9 E12/L [facility] WBC corrected for nucl RBC Auto (Bld) [#/Vol] 7.2 E9/L Normal 4.0 - 11.0 E9/L [facility] UA with Cult Rflxon 02-06-20 24 Bilirubin Ql (U) cancel Invalid Interpretation Code [facility] Comment on above: Performed By: #### 4 [id number] #### [facility] [address] [place] [address] Clarity (U) cancel Invalid Interpretation Code [facility] Comment on above: Performed By: #### 4 [id number] #### [facility] [address] [place] [address] Color (U) cancel Invalid Interpretation Code [facility] Comment on above: Result Comment: Micr oscopic readings are only performed on those samples that meet specific criteria set forth by [facility]. Performed By: #### 4 [id number] #### [facility] [address] [place] [address] Glucose Ql (U) cancel Invalid Interpretation Code [facility] Comment on above: Performed By: #### 4 [id number] #### [facility] [address] [place] [address] Hemoglobin Auto test strip (U) [Mass/Vol] cancel Invalid Interpretation Code [facility] Comment on above: Performed By: #### 4 [id number] #### [facility] [address] [facility] [place] [address] Ketones Auto test strip Ql (U) cancel Invalid Interpretation Code [facility] Comment on above: Performed By: #### 4 [id number] #### [facility] [address] [facility] [place] [address] Leukocyte esterase Auto test strip Ql (U) cancel Invalid Interpretation Code [facility] Comment on above: Performed By: #### 4 [id number] #### [facility] [address] [place] [address] Nitrite Auto test strip Ql (U) cancel Invalid Interpretation Code [facility] Comment on above: Performed By: #### 4 [id number] #### [facility] [address] [facility] [place] [address] pH (U) cancel Invalid Interpretation Code 5.0-9.0 [facility] Comment on above: Performed By: #### 4 [id number] #### [facility] [address] [facility] [place] [address] Protein Ql (U) cancel Invalid Interpretation Code [facility] Comment on above: Performed By: #### 4 [id number] #### [facility] [address] [facility] [place] [address] Specific gravity (U) [Rel density] cancel Invalid Interpretation Code 1.005-1.03 0 [facility] Comment on above: Performed By: #### 4 [id number] #### [facility] [address] [place] [address] Urobilinogen (U) [Mass/Vol] cancel Invalid Interpretation Code [facility] Comment on above: Performed By: #### 4 [id number] #### [facility] [address] [place] [address] Type of Urine collection method cancel Invalid Interpretation Code [facility] Comment on above: Result Comment: Canc el order to run on backup instrument. Performed By: #### 4 [id number] #### [facility] [address] [place] [address] URINALYSISOrdered By: Marce Murphy on 02-06-2024 Bilirubin Ql (U) cancel Invalid Interpretation Code [facility] UA Auto SS Clarity (U) cancel Invalid Interpretation Code [facility] UA Auto SS Color (U) cancel Invalid Interpretation Code [facility] UA Auto SS Comment on above: Interpretive Data: M icroscopic readings are only performed on those samples that meet specific criteria set forth by [facility]. Glucose Ql (U) cancel Invalid Interpretation Code [facility] UA Auto SS Hemoglobin Auto test strip (U) [Mass/Vol] cancel Invalid Interpretation Code [facility] UA Auto SS Ketones Auto test strip Ql (U) cancel Invalid Interpretation Code [facility] UA Auto SS Leukocyte esterase Auto test strip Ql (U) cancel Invalid Interpretation Code [facility] UA Auto SS Nitrite Auto test strip Ql (U) cancel Invalid Interpretation Code [facility] UA Auto SS pH (U) cancel Invalid Interpretation Code 5.0 - 9.0 [facility] UA Auto SS Protein Ql (U) cancel Invalid Interpretation Code [facility] UA Auto SS Specific gravity (U) [Rel density] cancel Invalid Interpretation Code 1.005 - 1.030 [facility] UA Auto SS Urobilinogen (U) [Mass/Vol] cancel Invalid Interpretation Code [facility] UA Auto SS URINALYSISOrdered By: Robert Jamison on 02-06-2024 Bilirubin Ql (U) Negative (02/06/24 7:47 AM) Normal Negative [facility] UA Auto SS Clarity (U) Clear (02/06/24 7:47 AM) Normal Clear [facility] UA Auto SS Color (U) Yellow (02/06/24 7:47 AM) Normal Yellow [facility] UA Auto SS Epithelial cells.squamous LM.HPF (Urine sed) [#/Area] 0-2 /HPF Normal [facility] UA Auto SS Glucose Ql (U) Negative Normal Negativemg /dL [facility] UA Auto SS Hemoglobin Auto test strip (U) [Mass/Vol] Negative (02/06/24 7:47 AM) Normal Negative [facility] UA Auto SS Ketones Ql (U) Negative Normal Negativemg /dL [facility] UA Auto SS Leukocyte esterase Auto test strip Ql (U) Negative Normal NegativeLe u/uL [facility] UA Auto SS Nitrite Auto test strip Ql (U) Negative Normal Negativemg /dL [facility] UA Auto SS pH (U) 6.0 (02/06/24 7:47 AM) Normal 5.0 - 9.0 [facility] UA Auto SS Protein Ql (U) Negative Normal Negativemg /dL [facility] UA Auto SS RBC Ql (U) 0-3 /HPF Normal 0-3/HPF [facility] UA Auto SS Specific gravity (U) [Rel density] 1.020 (02/06/24 7:47 AM) Normal 1.005 - 1.030 [facility] UA Auto SS UA Spec Desc Clean Catch (02/06/24 7:47 AM) Normal [facility] UA Auto SS Urobilinogen Qn (U) 0.2 mg/dL Normal 0.0 - 1. 0 mg/dL [facility] UA Auto SS WBC LM.HPF (Urine sed) [#/Area] 0-5 /HPF Normal 0-5/HPF [facility] UA Auto SS URINALYSISOrdered By: Jace Avila on 02-06-2024 UA Spec Desc cancel Invalid Interpretation Code [facility]A Auto SS Comment on above: Result Comment: Canc el order to run on backup instrument. eGFRon 02-06-2024 eGFR 58 mL/min/1.73 m2 Low >=59 [facility] Comment on above: Order Comment: Order added by Discern Expert. Performed By: #### 1 [id number] #### [facility] [address] [place] [address] C Urineon 02-01-2024 Bacteria identified Cx Nom (U) Microbiology PROCEDURE: Urine Culture [R1] SOURCE: U CleanCatch BODY SITE: COLLECTED DATE/TIME: 01/30/2024 15:00 EDT RECEIVED DATE/TIME: 01/30/2024 18:02 EDT START DATE/TIME: 01/30/2024 18:02 EDT FREE TEXT SOURCE: CECI REYES DO, DO, AARON FINAL REPORTS Final Report [] Verified Date/Time: [...] test was performed at: [facility], [address] [place] [address], [id number] , [place], Normal [facility] Comment on above: Performed By: #### 2 [id number] ####[facility] [address] [place] [address] ED Clinical Summaryon 2023 ED Clinical Summary ED Clinical Summary [address] [address] ED Clinical Summary Person Information [facility]: [facility] Age[facility] 74 Years : 1950 Sex: Female Language: Dutch PCP: AZUL GORMAN CNP Marital Status: Phone: [phone] Visit Id: Visit Reason: Post surgical problem; [...] 01/28/2024 18:39:42 01/28/2024 18:39:42 01/28/2024 18:39:42 ADDRESS: [facility] [address] [facility] [id number] PHYS DOC NOTES: MEDICAL INFORMATION: Prescriptions Given: [...] 5. fluticasone nasal (fluticasone 0.05 mg/inh Nasal [place]) 2 Sprays Nasal Inhalation every day. each [...] EDUCATION INFORMATION: Instructions: Follow up: DIAGNOSIS: Normal [facility] ED Patient Education Noteon 01-28-2024 ED Patient Education Note ED Patient Education Note Normal [facility] ED Patient Summaryon 024 ED Patient Summary ED Patient Summary [place] [address] Patient Discharge Instructions Person Information Name: MAEGAN DYE Age: 74 Years Arrival Date: 01/28/2024 18:06:56 Discharge Diagnosis: Primary Care Physician: AZUL GORMAN CNP Provider Information Primary Provider: [employer] Vertical:None The exam and treatment you received in the Emergency Department were for an urgent problem and are not intended as complete care. It is important that you follow up with a doctor, nurse practitioner, or physician?s assistant executive housekeeper for ongoing care. If your symptoms become [...] opioids can be used to help relieve nkhgrqla-ko-keewax pain and are often prescribed following a [...] be struggling with addiction, tell your health health care aide and ask for guidance or call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 6.0-7.8 [facility] Comment on above: Performed By: #### 2 153084 #### [facility] [address] [place] [address] Sodium [Moles/Vol] 138 mmol/L Normal 135-145 [facility] Comment on above: Performed By: #### 2 630495 #### [facility] [address] [place] [address] Urea nitrogen [Mass/Vol] 13 mg/dL Normal 5-21 [facility] Comment on above: Performed By: #### 2 929008 #### [facility] [address] [place] [address] Urea nitrogen/Creatinine [Mass ratio] 12 No Units Normal 10-20 [facility] Comment on above: Performed By: #### 2 709160 #### [facility] [address] [place] [address] Physician Orderon 10-29-2023 Physician Order [id number]#1.00TIFF Normal [facility] Physician Order [id number]#1.00TIFF Normal [facility] Vit B12on 10-29-2023 Cobalamin (Vitamin B12) [Mass/Vol] 413 pg/mL Normal 50-1500 [facility] Comment on above: Performed By: #### 2 766876 #### [facility] [address] [place] [address] eGFRon 10-29-2023 eGFR 52 mL/min/1.73 m2 Low >=59 [facility] Comment on above: Order Comment: Order added by Discern Expert. Performed By: #### 1 [id number] #### [facility] [address] [place] [address] Insurance Correspondenceon 0 10-28-2023 Insurance Correspondence [id number]#1.00TIFF Normal [facility] Consenton 10-10-2023 Consent [id number]#1.00TIFF Normal [facility] Patient Eval Forms Officeon 10-10-2023 Patient Eval Forms Office [id number]#1.00TIFF Normal [facility] Patient Eval Forms Office [id number]#1.00TIFF Normal [facility] Patient Eval Forms Office [id number]#1.00TIFF Normal [facility] Consent for Treatmenton 09-23 Consent for Treatment [id number]#1.00TIFF Normal [facility] Discharge Instructionson Discharge Instructions [id number]#1.00TIFF [facility] Medication Listson Medication Lists [id number]#1.00TIFF [facility] Referral Authorizationson Referral Authorizations [id number]#1.00TIFF [facility] Transfer Documentson 024 Transfer Documents [id number]#1.00TIFF [facility] Physician Orderon 10-03-2023 Physician Order [id number]#1.00TIFF [facility] Discharge Instructionson Discharge Instructions [id number]#1.00TIFF [facility] Transfer Documentson 024 Transfer Documents [id number]#1.00TIFF [facility] Discharge Note-Nursingon Discharge Note-Nursing REport given to Yesenia cedeno RN @ [facility]. Discharge papers, sbar, and med rec faxed to [facility]. Medical records and rest of original papers that were faxed going with [facility] transporters going with patient to [facility]. Patient to leave @ 3:00pm. Rachelle BULLARD update on POC. [facility] Discharge Note-Nursing MAEGAN DYE :1950 Visit Date:09/07/2023 Inpatient Discharge Instructions Your Care Team Admitting Physician - Ana Gandhi MD Reason for Your Visit AMS Your Diagnosis Encephalopathy Abnormal urine Neurogenic bladder disorder HTN (hypertension) SIADH (syndrome of inappropriate ADH production) COPD without exacerbation Opioid use Bipolar disorder, manic, moderate Dementia Altered mental status This Is Your Medications List Ensure (Ensure Vanilla) Misc Prescription (Straight Catheters & Supplies) Misc Prescription (walking boot) amlodipine (amLODIPine 5 mg Tab) celecoxib (Celebrex) celecoxib (celecoxib 200 mg Cap) clonazepam (clonazepam 1 mg Tab) docusate (Colace 100 mg Cap) fluticasone nasal (fluticasone 0.05 mg/inh Nasal Mulberry) multivitamin with minerals (Therapeutic Multiple Vitamins with Minerals Tab) mupirocin topical (mupirocin Top 2% Oint) nitrofurantoin (nitrofurantoin macrocrystals-monohydrate 100 mg Cap) ondansetron (Zofran ODT 4 mg Tab-Dis) ondansetron (ondansetron 4 mg Dis Tab) pantoprazole (Pantoprazole [address] Tab) polyethylene glycol 3350 (Miralax 17 gram packet) potassium chloride (potassium chloride 10 mEq Cap-ER) senna (Senokot 8.6 mg Tab) sodium chloride trazodone (traZODONE 150 mg Tab) [Image Removed: STOP]Stop taking these medications cimetidine (cimetidine 300 mg oral tablet) citalopram (citalopram 20 mg Tab) cyanocobalamin (cyanocobalamin 1000 mcg/mL Inj) ferrous sulfate (ferrous sulfate 325 mg Tab) lisinopril (lisinopril 20 mg Tab) quetiapine (Seroquel) Procedure History Urodynamics (07/06/2019), cysto w/ UD (07/05/2019), left femur ORIF w femoral cortical strut graft (10/04/2016), lt bipolar hemiarthroplasty (08/30/2016), Appendectomy, Cardiovascular stress test using pharmacologic stress agent, Cataract Surgery-Bilateral Eye, section, foot surgery right, I&D, 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 Discharge Vitals Temperature (Oral) 36.8 ?C Heart Rate (Monitored) 59 Respiratory Rate 16 Blood Pressure 130/70 Weight 61.0 kg What to do next Instructions From Your Doctor Event Name Event Result Discharge Activity Ambulate as tolerated Discharge Restrictions No restrictions Discharge Diet(s) Regular Pending Diagnostic Test Results None Pharmacy Information [facility] Kevin New Follow Up Appointments after Discharge Follow Up with AZUL GORMAN When: In 0 days Where: [place] [address]- Business (1) Medications What How Much When Why Instructions Next Dose New nitrofurantoin (nitrofurantoin macrocrystals-monohydrate 100 mg Cap) 1 Capsules By Mouth 2 times a day Printed Prescription Changed clonazepam (clonazepam 1 mg Tab) 1 Tablets By Mouth 3 times a day TAKE 1 TABLET BY MOUTH THREE TIMES A DAY NEEDED FOR ANXIETY Printed Prescription Unchanged amlodipine (amLODIPine 5 mg Tab) 1 Tablets By Mouth Every day TAKE 1 TABLET BY MOUTH EVERY DAY Unchanged celecoxib (Celebrex) 200 Milligram By Mouth Every day Unchanged celecoxib (celecoxib 200 mg Cap) TAKE 1 CAPSULE BY MOUTH EVERY DAY Unchanged docusate (Colace 100 mg Cap) 1 Capsules By Mouth 2 times a day Hold for diarrhea Unchanged Ensure (Ensure Vanilla) See instructions Drink 1 bottle (8 fl. oz.) BID Unchanged fluticasone nasal (fluticasone 0.05 mg/ inh Nasal Mulberry) 2 Sprays Nasal Inhalation Every day each nostril Unchanged Misc Prescription (Straight Catheters & Supplies) See instructions Use daily, as directed. Unchanged Misc Prescription (walking boot) See instructions right foot knee high walking Size small boot dx m21.969, m14.679 Fax to [facility] Unchanged multivitamin with minerals (Therapeutic Multiple Vitamins with Minerals Tab) By Mouth Every day Unchanged mupirocin topical (mupirocin Top 2% Oint) 1 Application Topical 3 times a day Unchanged ondansetron (ondansetron 4 mg Dis Tab) 1 Tablets By Mouth Every 6 hours as needed for Nausea/Vomiting Unchanged ondansetron (Zofran ODT 4 mg Tab-Dis) 1 Tablets By Mouth 3 times a day as needed for Nausea Nausea Unchanged pantoprazole (Pantoprazole [address] Tab) TAKE 1 TABLET BY MOUTH EVERY DAY Unchanged polyethylene glycol 3350 (Miralax 17 gram packet) 17 Gram By Mouth Every day Unchanged potassium chloride (potassium chloride 10 mEq Cap-ER) 1 Capsules By Mouth Every other day Unchanged senna (Senokot 8.6 mg Tab) 2 Tablets By Mouth Once a day (at bedtime) as needed for for constipation Unchanged sodium chloride 2 gram By Mouth 3 times a day Unchanged trazodone (traZODONE 150 mg Tab) 1 Tablets By Mouth Once a day (at bedtime) Do not give with clonazepam What How Much When Comments Stop Taking cimetidine (cimetidine 300 mg oral tablet) 2 Tabl (more content not included)... [facility] Interdisciplinary Note - Maximus e Manageron 09-12-2023 Interdisciplinary Note - Train Clerk CRM to room to discuss DC planning. Patient is awake, alert to self and place. CRM will call Oracio her Son later today. PCP, home DME and insurance verified with Son on 09/08. Patient is from home with Son. Patient would like a SNF stay with return home after that. Patient is here as observation for UTI/AMS. Patient had hallucinations on admission. MHP was called from ED and not felt was psychiatric issue. Looks like she has a h/o 1S admission. Patient is assigned to Dr Wellington, see notes. PT/OT recs SNF. 1. [facility] 2. [facility], [facility] denied, [facility], denied. Next referrals sent to [facility] precert obtained and she will DC there today. Patient was provided CRM contact, white board updated. CRM following. [facility] today [facility] We do not have any available transportation and Medicaid should cover the cost. CRM let primary nurse and DC nurse know via messenger CRM called Son Oracio to let him know of DC to [facility] today. Nursing still to arrange transport He would like called the time This is [facility] as specified in previous notes added to todays patient is leaving at 1500 and primary nurse told her son Normal [facility] Comment on above: Result Comment: Elec tronically Signed By: Latasha Hernández\.br\Date and Time Signed: 09/12/23 13:55 EDT Interdisciplinary Note - Maximus e Manageron 09-11-2023 Interdisciplinary Note - Train Clerk CRM to room to discuss DC planning. Patient is awake, alert to self and place. CRM will call Oracio her Son later today. PCP, home DME and insurance verified with Son on 09/08. Patient is from home with Son. Patient would like a SNF stay with return home after that. Patient is here as observation for UTI/AMS. Patient had hallucinations on admission. MHP was called from ED and not felt was psychiatric issue. Looks like she has a h/o 1S admission. Patient is assigned to Dr Wellington, see notes. PT/OT recs SNF. 1. [facility] 2. [facility], [facility] denied, [facility], denied. Next referrals sent to [facility]. Pending acceptance yet and needs precert. Patient was provided CRM contact, roya board updated. CRM following. [facility] has accepted, were starting precert and doing an onsite visit today [facility] Comment on above: Result Comment: Elec tronically Signed By: Latasha Hernández\.br\Date and Time Signed: 09/11/23 13:14 EDT Progress Note-Physicianon Progress Note-Physician Basic Information 1. Acute metabolic Encephalopathy (G93.40: Encephalopathy, unspecified) Possibly due to UTI Seen and examined Clinically stable No fever No complaints Oriented x3 CT brain NO ACUTE INTRACRANIAL PROCESS Urine culture 15,000 cfu/ml Staphylococcus epidermidis Macrobid PO BID Straight cath PT/OT Social service for placement Plan for SNF Waiting for pre-CERT 2. Staphylococcus epidermidis UTI Macrobid PO BID 3. Neurogenic bladder disorder (N31.8: Other neuromuscular dysfunction of bladder) Self cath 4. HTN (hypertension) (I10: Essential (primary) hypertension) Normotensive. 5. SIADH (syndrome of inappropriate ADH production) (E22.2: Syndrome of inappropriate secretion of antidiuretic hormone) Chronic issue. Na normal at 137. Patient on salt tabs TID. 6. COPD without exacerbation (J44.9: Chronic obstructive pulmonary disease, unspecified) No acute exacerbation present. On RA. Albuterol Atrovent nebulized 7. Opioid use (F11.90: Opioid use, unspecified, [...] disturbance, psychotic disturbance, mood disturbance, and anxiety) Subjective Seen and examined Clinically stable No complaints Review of Systems Constitutional: no fever, no chills, no sweats, no weakness Respiratory: no shortness of breath, no cough, no orthopnea, no wheezing Cardiovascular: no chest pain, no palpitations, no edema Additional ROS info: Except as noted in the above Review of Systems and in the History of Present Illness all other systems have been reviewed and are negative or noncontributory. Objective Vitals & Measurements T: 36.5 ?C(Oral) TMIN: 36.3 ?C(Oral) TMAX: 36.5 ?C(Oral) HR: 52(Monitored) RR: 17 BP: 125/71 SpO2: 93% WT: 61.1 kg Intake & Output This visit (24 hour periods starting at 07:00 EDT) 09/11/23 * 09/10/23 09/09/23 Total Summary Intake mL 387 780.25 1,016 Output mL 250 875 1,950 Fluid Balance 137 -94.75 -934 Intake (4) Ensure mL 237 474 474 Oral Intake mL 150 300 540 lorazepam mL -- 0.25 -- ondansetron mL -- 6 2 Total 387 780.25 1,016 Output (1) Urine Voided mL 250 875 1,950 Total 250 875 1,950 Counts (2) Stool Count -- 3 2 Urine Count 3 5 3 * This column has not completed the indicated time period. Physical Exam General: alert, no acute distress Skin: warm, dry Head: no trauma, normocephalic Neck: Trachea midline, no adenopathy, no tenderness Eye: normal conjunctiva, sclera clear ENMT: TM's clear, oral mucosa moist, no pharyngeal erythema or exudate Cardiovascular: regular rate and rhythm, normal peripheral perfusion Respiratory: Lungs CTA, respirations non labored Chest wall: no deformity. Gastrointestinal: soft, non distended, no tenderness, no guarding. Back: No tenderness, Normal ROM, Normal alignment. Extremities: no deformity, no trauma Neurological: oriented x 4, LOC appropriate for age, CN II-XII intact, motor strength equal & normal bilaterally, sensation equal & normal bilaterally, speech normal Psychiatric: cooperative, affect appropriate for age, normal judgement, normal psychiatric thoughts. Lab Results Glucose Cap: 72 mg/dL (09/10/23 14:21:00) POC Device SN: [id number] (09/10/23 14:21:00) POC User ID: [id number] (09/10/23 14:21:00) POC Username: JACQUELINE TODD (09/10/23 14:21:00) Images No qualifying data available. Images (02/01/2023 15:[address] Head or Brain w/o Contrast) * Final Report * Reason For Exam new hallucinations;Other (please specify) POWERSCRIBE REPORT IMPRESSION: NO ACUTE INTRACRANIAL PROCESS. EXAMINATION: CT of the brain without contrast HISTORY: Hallucinations. Headache. COMPARISON: CT brain 04/17/2022 TECHNIQUE: Multiple axial images were obtained of the brain from the skull base through the vertex. Multiplanar reformats were obtained. FINDINGS: Prominence of the sulci and ventricles compatible with mild generalized parenchymal volume loss. Anthony-white matter differentiation is preserved. Subtle areas of bilateral supratentorial white matter hypoattenuation are nonspecific but most likely due to chronic small vessel ischemic changes in a patient of this age. No acute hemorrhage or abnormal extra-axial fluid collection. Basal cisterns are patent. No mass effect or midline shift. The visualized paranasal sinuses and mastoid air cells are clear. Calvarium is intact. All CT scans at this facility use dose modulation (more content not included)... Normal [facility] Comment on above: Result Comment: Elec tronically Signed By: MAYI RAMOS, Gumaro\.br\Date and Time Signed: 09/11/23 11:21 EDT C Urineon 09-10-2023 Bacteria identified Cx Nom (U) Microbiology PROCEDURE: Urine Culture [R1] SOURCE: U Cath BODY SITE: COLLECTED DATE/TIME: 09/07/2023 20:55 EDT RECEIVED DATE/TIME: 09/07/2023 21:46 EDT START DATE/TIME: 09/07/2023 21:46 EDT FREE TEXT SOURCE: Karlee John PA-C, Rodrigue Cruz. Alvaro BYRD, Rodrigue Cruz. FINAL REPORTS Final Report [] Verified Date/Time: 09/10/2023 09:06 EDT 15,000 cfu/ml Staphylococcus epidermidis SUSCEPTIBILITY RESULTS _ LEGEND: S=Susceptible, N/R=Not Reported, Blank=Data not available, or drug not advisable or tested, I=Intermediate, ESBL=Extended spectrum beta-lactamase, R=Resistant, TFG=Thymidine-dependent strain, ANAY=Beta-lactamase positive, REINALDO=mcg/m;(mg/L), S*=Predicted susceptible interp, R*=Predicted resistant interp Staepi Antibiotic REINALDO Dilutn REINALDO Interp Amoxicillin/ >4/2 R Clavulanate Ampicillin >8 R Ampicillin/ <=8/4 R Sulbactam Cefazolin <=8 R Ciprofloxacin >2 R Daptomycin <=1 S Gentamicin <=4 S Levofloxacin >4 R Linezolid <=2 S Nitrofurantoin <=32 S Oxacillin >2 R Penicillin >8 R Rifampin <=1 S Tetracycline >8 R Trimethoprim/ >2/38 R Sulfa Vancomycin 1 S Performing Locations R1: This test was performed at: [facility], [address] [place] [address], [facility]- , , [facility] Comment on above: Performed By: #### [id number] #### [facility] [address] [place] [address] CHEMISTRYOrdered By: Pool SCHMIDT User on 09-10-2023 Glucose [Mass/Vol] 72 mg/dL Normal 55 - 99 mg/dL [facility] Subsection Comment on above: Result Comment: Christina perea RN/ POC Device SN [id number] 1 Invalid Interpretation Code [facility] Subsection POC User ID [id number] 1 Invalid Interpretation Code [facility] Subsection POC Username JACQUELINE TODD Invalid Interpretation Code [facility] Subsection Capillary Glucose POCon 08-24 Glucose [Mass/Vol] 72 mg/dL Normal 55-99 [facility] Comment on above: Result Comment: Christina perea RN/ Performed By: #### 2 [id number] #### [facility] [address] [place] [address] Interdisciplinary Note - Maximus e Manageron 09-10-2023 Interdisciplinary Note - Train Clerk CRM to room to discuss DC planning. Patient is awake, alert to self and place. CRM will call Oracio her Son later today. PCP, home DME and insurance verified with Son on 09/08. Patient is from home with Son. Patient would like a SNF stay with return home after that. Patient is here as observation for UTI/AMS. Patient had hallucinations on admission. MHP was called from ED and not felt was psychiatric issue. Looks like she has a h/o 1S admission. Patient is assigned to Dr Wellington, see notes. PT/OT recs SNF. 1. [facility] 2. [facility], [facility] denied, [facility], denied. Next referrals sent to [facility]. Pending acceptance yet and needs precert. Patient was provided CRM contact, white board updated. CRM following. Patient today states I dont want placement CRM explained to her referring for SNF/ Therapy stay not LTC Patient voices agreeable to that CRM left a VM for Son Oracio yesterday he wanted me to try to any 5 star facilities Jojo are reviewing Normal [facility] Comment on above: Result Comment: Elec tronically Signed By: Latasha Hernández\.br\Date and Time Signed: 09/10/23 11:32 EDT Progress Note-Physicianon Progress Note-Physician Basic Information 1. Acute metabolic Encephalopathy (G93.40: Encephalopathy, unspecified) Possibly due to UTI Seen and examined Clinically stable Back to her baseline Not agitated or combative Oriented x3 CT brain NO ACUTE INTRACRANIAL PROCESS Urine culture 15,000 cfu/ml Staphylococcus epidermidis Macrobid PO BID Straight cath PT/OT Social service for placement Plan for SNF Discussed with her son at bedside 2. Staphylococcus epidermidis UTI Macrobid PO BID 3. Neurogenic bladder disorder (N31.8: Other neuromuscular dysfunction of bladder) Bladder scan Patient reports she self-cath 4. HTN (hypertension) (I10: Essential (primary) hypertension) Normotensive. 5. SIADH (syndrome of inappropriate ADH production) (E22.2: Syndrome of inappropriate secretion of antidiuretic hormone) Chronic issue. Na normal at 137. Patient on salt tabs TID. 6. COPD without exacerbation (J44.9: Chronic obstructive pulmonary disease, unspecified) No acute exacerbation present. On RA. Albuterol Atrovent nebulized 7. Opioid use (F11.90: Opioid use, unspecified, [...] disturbance, psychotic disturbance, mood disturbance, and anxiety) Subjective Seen and examined Clinically stable She is slightly nervous and anxious She did not have a good night sleep Little restless Review of Systems Constitutional: no fever, no chills, no sweats, no weakness Respiratory: no shortness of breath, no cough, no orthopnea, no wheezing Cardiovascular: no chest pain, no palpitations, no edema Additional ROS info: Except as noted in the above Review of Systems and in the History of Present Illness all other systems have been reviewed and are negative or noncontributory. Objective Vitals & Measurements T: 36.6 ?C(Axillary) TMIN: 36.4 ?C(Axillary) TMAX: 36.7 ?C(Axillary) HR: 57(Monitored) RR: 18 BP: 115/67 SpO2: 92% Intake & Output This visit (24 hour periods starting at 07:00 EDT) 09/10/23 * 09/09/23 09/08/23 Total Summary Intake mL 239 1,016 239 Output mL -- 1,950 3,100 Fluid Balance 239 -934 -2,861 Intake (3) Ensure mL 237 474 237 Oral Intake mL -- 540 -- ondansetron mL 2 2 2 Total 239 1,016 239 Output (2) Urine Catheter mL -- -- 1,825 Urine Voided mL -- 1,950 1,275 Total -- 1,950 3,100 Counts (2) Stool Count -- 2 -- Urine Count -- 3 -- * This column has not completed the indicated time period. Physical Exam General: alert, no acute distress Skin: warm, dry Head: no trauma, normocephalic Neck: Trachea midline, no adenopathy, no tenderness Eye: normal conjunctiva, sclera clear ENMT: TM's clear, oral mucosa moist, no pharyngeal erythema or exudate Cardiovascular: regular rate and rhythm, normal peripheral perfusion Respiratory: Lungs CTA, respirations non labored Chest wall: no deformity. Gastrointestinal: soft, non distended, no tenderness, no guarding. Back: No tenderness, Normal ROM, Normal alignment. Extremities: no deformity, no trauma Neurological: restless. oriented x 2, LOC appropriate for age, CN II-XII intact, motor strength equal & normal bilaterally, sensation equal & normal bilaterally, speech normal Psychiatric: cooperative, affect anxious, normal judgement, normal psychiatric thoughts. Lab Results No qualifying data available. Images (02/01/2023 15:[address] Head or Brain w/o Contrast) * Final Report * Reason For Exam new hallucinations;Other (please specify) POWERSCRIBE REPORT IMPRESSION: NO ACUTE INTRACRANIAL PROCESS. EXAMINATION: CT of the brain without contrast HISTORY: Hallucinations. Headache. COMPARISON: CT brain 04/17/2022 TECHNIQUE: Multiple axial images were obtained of the brain from the skull base through the vertex. Multiplanar reformats were obtained. FINDINGS: Prominence of the sulci and ventricles compatible with mild generalized parenchymal volume loss. Anthony-white matter differentiation is preserved. Subtle areas of bilateral supratentorial white matter hypoattenuation are nonspecific but most likely due to chronic small vessel ischemic changes in a patient of this age. No acute hemorrhage or abnormal extra-axial fluid collection. Basal cisterns are patent. No mass effect or midline shift. The visualized paranasal sinuses and mastoid air cells are clear. Calvarium is intact. All CT scans at this facility use dose modulation, iterative reconstruction, and/or weight based (more content not included)... Normal [facility] Comment on above: Result Comment: Elec tronically Signed By: MAYI RAMOS, Gumaro\.br\Date and Time Signed: 09/10/23 10:39 EDT Interdisciplinary Note - Maximus e Manageron 09-09-2023 Interdisciplinary Note - Train Clerk CRM to room to discuss DC planning. Patient is awake, alert to self and place. CRM will call Oracio her Son later today. PCP, home DME and insurance verified with Son on 09/08. Patient is from home with Son. Per ER notes wanting placement. Patient is here as observation for UTI/AMS. Patient had hallucinations on admission. MHP was called from ED and not felt was psychiatric issue. Looks like she has a h/o 1S admission. Patient is assigned to Dr Wellington, see notes. PT/OT recs SNF. 1. [facility] 2. [facility]. Pending acceptance yet and needs precert. Patient was provided CRM contact, white board updated. CRM following. [facility] CRM spoke with Son Oracio and he wants 5 star referrals next choices are [facility] then [facility] Normal [facility] Comment on above: Result Comment: Elec tronically Signed By: Latasha Hernández\.br\Date and Time Signed: 09/09/23 13:42 EDT Progress Note-Physicianon Progress Note-Physician Basic Information 1. Acute metabolic Encephalopathy (G93.40: Encephalopathy, unspecified) Likely related to underlying behavioral issues or dementia. She has a known hx Bipolar disorder. Seen and examined Clinically stable Back to her baseline Not agitated or combative Oriented x3 CT brain NO ACUTE INTRACRANIAL PROCESS Urine culture is negative Bladder scan Straight cath PT/OT Social service for placement 2. Abnormal urine (R82.90: Unspecified abnormal findings in urine) Urine culture is negative 3. Neurogenic bladder disorder (N31.8: Other neuromuscular dysfunction of bladder) Bladder scan Patient reports she self-cath 4. HTN (hypertension) (I10: Essential (primary) hypertension) Normotensive. 5. SIADH (syndrome of inappropriate ADH production) (E22.2: Syndrome of inappropriate secretion of antidiuretic hormone) Chronic issue. Na normal at 137. Patient on salt tabs TID. 6. COPD without exacerbation (J44.9: Chronic obstructive pulmonary disease, unspecified) No acute exacerbation present. On RA. Albuterol Atrovent nebulized 7. Opioid use (F11.90: Opioid use, unspecified, [...] disturbance, psychotic disturbance, mood disturbance, and anxiety) Subjective Seen and examined Clinically stable Review of Systems Constitutional: no fever, no chills, no sweats, no weakness Respiratory: no shortness of breath, no cough, no orthopnea, no wheezing Cardiovascular: no chest pain, no palpitations, no edema Additional ROS info: Except as noted in the above Review of Systems and in the History of Present Illness all other systems have been reviewed and are negative or noncontributory. Objective Vitals & Measurements T: 36.3 ?C(Oral) TMIN: 36.0 ?C(Oral) TMAX: 36.9 ?C(Oral) HR: 60(Monitored) RR: 16 BP: 146/66 SpO2: 93% Intake & Output This visit (24 hour periods starting at 07:00 EDT) 09/09/23 * 09/08/23 09/07/23 Total Summary Intake mL 337 239 440 Output mL 250 3,100 800 Fluid Balance 87 -2,861 -360 Intake (3) Ensure mL 237 237 -- Oral Intake mL 100 -- 440 ondansetron mL -- 2 -- Total 337 239 440 Output (2) Urine Catheter mL -- 1,825 -- Urine Voided mL 250 1,275 800 Total 250 3,100 800 Counts (0) * This column has not completed the indicated time period. Physical Exam General: alert, no acute distress Skin: warm, dry Head: no trauma, normocephalic Neck: Trachea midline, no adenopathy, no tenderness Eye: normal conjunctiva, sclera clear ENMT: TM's clear, oral mucosa moist, no pharyngeal erythema or exudate Cardiovascular: regular rate and rhythm, normal peripheral perfusion Respiratory: Lungs CTA, respirations non labored Chest wall: no deformity. Gastrointestinal: soft, non distended, no tenderness, no guarding. Back: No tenderness, Normal ROM, Normal alignment. Extremities: no deformity, no trauma Neurological: oriented x 4, LOC appropriate for age, CN II-XII intact, motor strength equal & normal bilaterally, sensation equal & normal bilaterally, speech normal Psychiatric: cooperative, affect appropriate for age, normal judgement, normal psychiatric thoughts. [1] Lab Results No qualifying data available. Images (02/01/2023 15:[address] Head or Brain w/o Contrast) Reason For Exam new hallucinations;Other (please specify) POWERSCRIBE REPORT IMPRESSION: NO ACUTE INTRACRANIAL PROCESS. EXAMINATION: CT of the brain without contrast HISTORY: Hallucinations. Headache. COMPARISON: CT brain 04/17/2022 TECHNIQUE: Multiple axial images were obtained of the brain from the skull base through the vertex. Multiplanar reformats were obtained. FINDINGS: Prominence of the sulci and ventricles compatible with mild generalized parenchymal volume loss. Anthony-white matter differentiation is preserved. Subtle areas of bilateral supratentorial white matter hypoattenuation are nonspecific but most likely due to chronic small vessel ischemic changes in a patient of this age. No acute hemorrhage or abnormal extra-axial fluid collection. Basal cisterns are patent. No mass effect or midline shift. The visualized paranasal sinuses and mastoid air cells are clear. Calvarium is intact. All CT scans at this facility use dose modulation, iterative reconstruction, and/or weight based dosing when appropriate to reduce radiation dose to as low as reasonably achievable. Ordering Provider: Johny Willson Signature Line (more content not included)... Normal [facility] Comment on above: Result Comment: Elec tronically Signed By: MAYI RAMOS, Gumaro\.br\Date and Time Signed: 09/09/23 09:31 EDT ED Note-Physicianon 09-08-19 ED Note-Physician Basic Information Time Seen: Alvaro BYRD, Rodrigue Granado 09/07/2023 19:33 Chief Complaint pt. via [place] [facility] for [place], states she is seeing her mother at home giving her pills. pt. states she has a UTI, recently started Aricept per squad report. PD was on scene at home. History of Present Illness A 73-year-old female reports via squad for altered mental status. She reports that she is seeing her mother at home, and is giving her pills. Reports that she has a UTI, recently started on medication. Reports that she has been recently started on aricept for history of dementia per [facility]. Reports PD was at her house, because there was no way this time was able to take care of her. Patient denies being any pain. Denies back pain or belly pain. Denies any nausea or vomiting. Reports multiple allergies. Review of Systems A 10 point review of systems is negative except as noted above. Medical and Surgical History: Reviewed and noted Social history: Lives at home Family History: Reviewed. Tobacco: Denies, former Physical Exam Vitals & Measurements T: 36.5 ?C(Oral) HR: 79(Monitored) RR: 20 BP: 125/95 SpO2: 93% HT: 162 cm WT: 67 kg BMI: 25.53 General: The patient appears well and in no apparent distress. Patient is resting comfortably on bed. Afebrile Skin: Warm, dry, no pallor noted. Head: Normocephalic, atraumatic Neck: No JVD Eye: PERRLA, EOMI ENT: Moist mucus membranes Cardiovascular: Regular rate normal peripheral perfusion Respiratory: No respiratory distress no accessory muscle use no obvious audible wheezing Chest Wall: no deformity Musculoskeletal: normal ROM, no deformity, no swelling GI: No obvious distention soft nontender nondistended no guarding rebounding or rigidity Neurological: A&Ox2. moves all extremities equal strength and symmetry. alert only to place and self. Psychiatric: Cooperative and appropriate Medical Decision Making MEDICAL DECISION MAKING Number and Complexity of Problems Differential Diagnosis: [] [facility] Data External documents reviewed: [] My EKG interpretation: Reviewed My CT interpretation: [] My X-ray interpretation: [] My Ultrasound interpretation: [] Decision rules/scores evaluated: [] Discussed with: [] Treatment and Disposition ED Course: 73-year-old female reports via squad for altered mental status. Patient reports that she does have a UTI, but she does complain of this every time she comes the emergency department and she is seen quite frequently. Reports that she is seeing her mother and she is having her pills given to her by her mother. She reports that she was recently seen at [facility]. They did discharge her home. No signs of systemic infection. Due to concerns we did do a psychiatric workup on the patient. Lab work reviewed noted. She is alert and oriented to self and place only. Denies any fevers or chills. I did look at her urinalysis, which is not possibly super concerning for UTI. We did reach out to mental health specialist, and they stated there was no crisis at this time. Believe this is likely more of a dementia state. Due to this, I did discuss case with hospitalist. After discussion with hospitalist discussed we will wait on the culture for the urine, as last time she did have a culture is positive, there is +2 bacteria in her urine, which there is only trace today. Discussed this is appropriate. Discussed that we did talk with her son, and he did cannot care for her, so they want her placed in a [facility]. Hospitalist agreeable with admission. Shared decision making: [] Code status: [] Assessment/Plan 1. Encephalopathy (G93.40: Encephalopathy, unspecified) 2. Abnormal urine (R82.90: Unspecified abnormal [...] Level UA with Cult Rflx Urine Culture Disposition Plan Patient Discharge Condition Stable Discharge Disposition To be admitted Discharge Prescription List Prescriptions No active prescription medications Follow-up No qualifying data available Attestation Patient seen and evaluated by the physician assistant executive housekeeper. Attending physician was present in the emergency department and supervised care. This visit was performed by both the physician and an APC. I performed all aspects of the MDM as documented. This report was transcri (more content not included)... Normal [facility] Comment on above: Result Comment: Elec tronically Signed By: Alvaro BYRD, Rodrigue Granado\.br\Date and Time Signed: 09/07/23 22:25 EDT\.br\Electronically Co-Signed By: Santiago Harrington DO\.br\Date and Time Co-Signed: 09/08/23 01:03 EDT Interdisciplinary Note - Maximus e Manageron 09-08-2023 Interdisciplinary Note - Train Clerk CRM to room to discuss DC planning. Patient is drowsy, CRM will call Oracio her Son to verify PCP, home DME and insurance. Patient is from home with Son. Per ER notes wanting placement. Patient is here as observation for UTI/AMS. Patient had hallucinations on admission. MHP was called from ED and not felt was psychiatric issue. Looks like she has a h/o 1S admission. Patient is assigned to Dr Wellington, see notes. Patient will be here 1-2 days per . Patient was provided CRM contact, roya tobias updated. CRM following CRM spoke with SON he would like SNF stay but understands that she may need LTC Choices are 1. [facility] and 2 TCU ( may be 00N) [facility] Comment on above: Result Comment: Elec tronically Signed By: Latasha Hernández\.br\Date and Time Signed: 09/08/23 12:42 EDT Interdisciplinary Note - Soc ial Workeron 09-08-2023 Interdisciplinary Note - Contaminated Land Consultant This SW received a consult due to concerning accusations made by patient against her son. DARLIN is very familiar with patient and her son. SW reviewed accusations that are noted in the H&P. DARLIN contacted Vita Appiah at [facility] to see if she still had an open case with patient as they have been involved during previous hospitalizations. Vita stated that the case has been closed. Patient was at [facility] in [place] for a while, however her son took her out of the facility and at that time patient denied all the accusations she had previously made against her son. DARLIN went ahead and called in the report of these accusations to Darnell in Intake for [facility]. Both Darnell and Vita were made aware that DARLIN will keep them updated on discharge plans for patient. SW will remain available. [facility] Progress Note-Physicianon Progress Note-Physician Basic Information 1. Acute metabolic Encephalopathy (G93.40: Encephalopathy, unspecified) Likely related to underlying behavioral issues or dementia. She has a known hx Bipolar disorder. Seen and examined Clinically better Back to her baseline Oriented x3 CT brain NO ACUTE INTRACRANIAL PROCESS Urine culture is negative PT/OT Social service 2. Abnormal urine (R82.90: Unspecified abnormal findings in urine) Urine culture is negative 3. Neurogenic bladder disorder (N31.8: Other neuromuscular dysfunction of bladder) Patient reports she self-caths 4. HTN (hypertension) (I10: Essential (primary) hypertension) Normotensive. 5. SIADH (syndrome of inappropriate ADH production) (E22.2: Syndrome of inappropriate secretion of antidiuretic hormone) Chronic issue. Na normal at 137. Patient on salt tabs TID. 6. COPD without exacerbation (J44.9: Chronic obstructive pulmonary disease, unspecified) No acute exacerbation present. On RA. Albuterol Atrovent nebulized 7. Opioid use (F11.90: Opioid use, unspecified, [...] disturbance, psychotic disturbance, mood disturbance, and anxiety) Subjective Seen and examined Clinically stable Alert and oriented x3 Review of Systems Constitutional: no fever, no chills, no sweats, no weakness Respiratory: no shortness of breath, no cough, no orthopnea, no wheezing Cardiovascular: no chest pain, no palpitations, no edema Additional ROS info: Except as noted in the above Review of Systems and in the History of Present Illness all other systems have been reviewed and are negative or noncontributory. Objective Vitals & Measurements T: 36.6 ?C(Oral) TMIN: 36.5 ?C(Oral) TMAX: 36.6 ?C(Oral) HR: 69(Peripheral) RR: 18 BP: 126/74 SpO2: 94% HT: 162 cm WT: 61.7 kg Intake & Output This visit (24 hour periods starting at 07:00 EDT) 09/08/23 * 09/07/23 09/06/23 Total Summary Intake mL 237 440 -- Output mL 150 800 -- Fluid Balance 87 -360 -- Intake (2) Ensure mL 237 -- -- Oral Intake mL -- 440 -- Total 237 440 -- Output (1) Urine Voided mL 150 800 -- Total 150 800 -- Counts (0) * This column has not completed the indicated time period. Physical Exam General: alert, no acute distress Skin: warm, dry Head: no trauma, normocephalic Neck: Trachea midline, no adenopathy, no tenderness Eye: normal conjunctiva, sclera clear ENMT: TM's clear, oral mucosa moist, no pharyngeal erythema or exudate Cardiovascular: regular rate and rhythm, normal peripheral perfusion Respiratory: Lungs CTA, respirations non labored Chest wall: no deformity. Gastrointestinal: soft, non distended, no tenderness, no guarding. Back: No tenderness, Normal ROM, Normal alignment. Extremities: no deformity, no trauma Neurological: oriented x 4, LOC appropriate for age, CN II-XII intact, motor strength equal & normal bilaterally, sensation equal & normal bilaterally, speech normal Psychiatric: cooperative, affect appropriate for age, normal judgement, normal psychiatric thoughts. Lab Results WBC: 7.5 E9/L (09/07/23 20:12:00) RBC: 4.5 E12/L (09/07/23 20:12:00) HGB: 12.8 gm/dL (09/07/23 20:12:00) Hct: 39.1 % (09/07/23 20:12:00) MCV: 87.1 fL (09/07/23 20:12:00) MCH: 28.5 pg (09/07/23 20:12:00) MCHC: 32.7 gm/dL (09/07/23 20:12:00) RDW: 12.5 % (09/07/23 20:12:00) Platelet: 257 E9/L (09/07/23 20:12:00) MPV: 7.4 fL (09/07/23 20:12:00) Neutro Auto: 67.6 % (09/07/23 20:12:00) Lymph Auto: 20 % (09/07/23 20:12:00) Republic Auto: 9.5 % (09/07/23 20:12:00) Eos Auto: 2.3 % (09/07/23:12:00) Basophil Auto: 0.6 % (04/14/24 20:12:00) Neutro Absolute: 5 E9/L (09/07/23 20:12:00) Lymph Absolute: 1.5 E9/L (09/07/23 20:12:00) Republic Absolute: 0.7 E9/L (09/07/23 20:12:00) Eos Absolute: 0.2 E9/L (09/07/23 20:12:00) Basophil Absolute: 0 E9/L (09/07/23 20:12:00) Glucose Lvl: 107 mg/dL (09/07/23 20:12:00) BUN: 23 mg/dL High (09/07/23 20:12:00) Creatinine: 1.1 mg/dL (09/07/23 20:12:00) eGFR: 52 mL/min/1.73 m2 Low (09/07/23 20:12:00) BUN/Creat Ratio: 21 High (09/07/23 20:12:00) Sodium Lvl: 137 mmol/L (09/07/23 20:12:00) Potassium Lvl: 4.3 mmol/L (09/07/23 20:12:00) Chloride: 99 mmol/L Low (09/07/23 20:12:00) CO2: 30 mmol/L (09/07/23 20:12:00) AGAP: 12 mEq/L (09/07/23 20:12:00) Calcium Lvl: 9.8 mg/dL (09/07/23 20:12:00) Alk Phos: 85 Int._Unit/L (09/07/23 20:12:00) ALT: 8 Int._Unit/L (09/07/23 20:12:00) AST: 17 Int._Unit/L (09/07/23 20:12:00) Total Protein: 7 gm/dL (09/07/23 (more content not included)... Normal [facility] Comment on above: Result Comment: Elec tronically Signed By: MAYI RAMOS, Gumaro\.br\Date and Time Signed: 09/08/23 10:48 EDT UA with Cult Rflxon 09-08-19 UA Spec Desc Catheter Normal [facility] Comment on above: Result Comment: Test results were corrected for specimen description. Performed By: #### 4 [id number] #### [facility] [address] [place] [address]35 CBC w/ Auto Diffon 4 Basophils/100 WBC (Bld) 0.6 % Normal 0.0-2.0 [facility] Comment on above: Performed By: #### 2 [id number], [id number] #### [facility] [address] [place] [address] 10468 Basophils/Leukocytes Auto (Bld) [Pure # fraction] 0.0 E9/L Normal 0.0-0.2 [facility] Comment on above: Performed By: #### 2 [id number], [id number] #### [facility] [address] [place] [address] 22068 Eosinophils (Bld) [#/Vol] 0.2 E9/L Normal 0.0-0.5 [facility] Comment on above: Performed By: #### 2 [id number], [id number] #### [facility] [address] [place] [address] 23136 Eosinophils/100 WBC (Bld) 2.3 % Normal 0.0-8.0 [facility] Comment on above: Performed By: #### 2 [id number], [id number] #### [facility] [address] [place] [address] 25864 Erythrocyte distribution width (RBC) [Ratio] 12.5 % Normal 10.9-14.2 [facility] Comment on above: Performed By: #### 2 [id number], [id number] #### [facility] [address] [place] [address] 08589 Hematocrit (Bld) [Volume fraction] 39.1 % Normal 34.0-46.0 [facility] Comment on above: Performed By: #### 2 [id number], [id number] #### [facility] [address] [place] [address] 68854 Hemoglobin (Bld) [Mass/Vol] 12.8 g/dL Normal 12.0-16.0 [facility] Comment on above: Performed By: #### 2 547452, [id number] #### [facility] [address] [place] [address] 17693 Lymphocytes (Bld) [#/Vol] 1.5 E9/L Normal 1.0-4.0 [facility] Comment on above: Performed By: #### 2 529034, [id number] #### [facility] [address] [place] [address] 61324 Lymphocytes/100 WBC (Bld) 20.0 % Normal 14.0-50.0 [facility] Comment on above: Performed By: #### 2 694465, [id number] #### [facility] [address] [place] [address] 15018 MCH (RBC) [Entitic mass] 28.5 pg Normal 27.0-34.0 [facility] Comment on above: Performed By: #### 2 [id number], [id number] #### [facility] [address] [place] [address] 37492 MCHC (RBC) [Mass/Vol] 32.7 g/dL Normal 31.4-36.0 [facility] Comment on above: Performed By: #### 2 785144, [id number] #### [facility] [address] [place] [address] 64176 MCV (RBC) [Entitic vol] 87.1 fL Normal 80.0-100.0 [facility] Comment on above: Performed By: #### 2 929177, [id number] #### [facility] [address] [place] [address] 54998 Monocytes (Bld) [#/Vol] 0.7 E9/L Normal 0.2-1.0 [facility] Comment on above: Performed By: #### 2 173782, [id number] #### [facility] [address] [place] [address] 15615 Neutrophils (Bld) [#/Vol] 5.0 E9/L Normal 2.0-7.5 [facility] Comment on above: Performed By: #### 2 833381, [id number] #### [facility] [address] [place] [address] Neutrophils/100 WBC (Bld) 67.6 % Normal 36.0-75.0 [facility] Comment on above: Performed By: #### 2 566549, [id number] #### [facility] [address] [place] [address] Platelet mean volume (Bld) [Entitic vol] 7.4 fL Normal 6.4-10.8 [facility] Comment on above: Performed By: #### 2 301598, [id number] #### [facility] [address] [place] [address] 07853 Platelets (Bld) [#/Vol] 257.0 E9/L Normal 150.0-500. 0 [facility] Comment on above: Performed By: #### 2 800594, [id number] #### [facility] [address] [place] [address] 17385 RBC (Bld) [#/Vol] 4.5 E12/L Normal 4.3-5.9 [facility] Comment on above: Performed By: #### 2 470708, [id number] #### [facility] [address] [place] [address] 29924 WBC corrected for nucl RBC Auto (Bld) [#/Vol] 7.5 E9/L Normal 4.0-11.0 [facility] Comment on above: Performed By: #### 2 122553, [id number] #### [facility] [address] [place] [address] 18400 CHEMISTRYOrdered By: SYSTEM SYSTEM on 09-07-2023 Amphetamines [...] 09-07-2023 Albumin [Mass/Vol] 4.2 g/dL Normal 3.3-5.0 [facility] Comment on above: Order Comment: Urina ry Catheter Insertion triggered Urinalysis With Culture Reflex order by lisa. Performed By: #### 2 396472, [id number] #### [facility] [address] [place] [address] Albumin/Globulin (S) [Mass conc ratio] 1.5 Normal 1.1-2.2 [facility] Comment on above: Order Comment: Urina ry Catheter Insertion triggered Urinalysis With Culture Reflex order by discern. Performed By: #### 2 944615, [id number] #### [facility] [address] [place] [address] ALP [Catalytic activity/Vol] 85 Int._Unit/L Normal 21-98 [facility] Comment on above: Order Comment: Urina ry Catheter Insertion triggered Urinalysis With Culture Reflex order by discern. Performed By: #### 2 003344, [id number] #### [facility] [address] [place] [address] ALT No additional P-5'-P [Catalytic activity/Vol] 8 Int._Unit/L Normal 6-46 [facility] Comment on above: Order Comment: Urina ry Catheter Insertion triggered Urinalysis With Culture Reflex order by discern. Performed By: #### 2 176091, [id number] #### [facility] [address] [place] [address] Anion gap [Moles/Vol] 12 mmol/L Normal 6-16 [facility] Comment on above: Order Comment: Urina ry Catheter Insertion triggered Urinalysis With Culture Reflex order by discern. Performed By: #### 2 915142, [id number] #### [facility] [address] [place] [address] AST [Catalytic activity/Vol] 17 Int._Unit/L Normal 5-43 [facility] Comment on above: Order Comment: Urina ry Catheter Insertion triggered Urinalysis With Culture Reflex order by discern. Performed By: #### 2 809392, [id number] #### [facility] [address] [place] [address] Bilirubin [Mass/Vol] 0.4 mg/dL Normal 0.0-1.1 [facility] Comment on above: Order Comment: Urina ry Catheter Insertion triggered Urinalysis With Culture Reflex order by discern. Performed By: #### 2 261915, [id number] #### [facility] [address] [place] [address] Calcium [Mass/Vol] 9.8 mg/dL Normal 8.9-11.1 [facility] Comment on above: Order Comment: Urina ry Catheter Insertion triggered Urinalysis With Culture Reflex order by discern. Performed By: #### 2 230668, [id number] #### [facility] [address] [place] [address] Chloride [Moles/Vol] 99 mmol/L Low 101-111 [facility] Comment on above: Order Comment: Urina ry Catheter Insertion triggered Urinalysis With Culture Reflex order by discern. Performed By: #### 2 168230, [id number] #### [facility] [address] [place] [address] CO2 [Moles/Vol] 30 mmol/L Normal 21-31 [facility] Comment on above: Order Comment: Urina ry Catheter Insertion triggered Urinalysis With Culture Reflex order by discern. Performed By: #### 2 738171, [id number] #### [facility] [address] [place] [address] Creatinine [Mass/Vol] 1.1 mg/dL Normal 0.5-1.3 [facility] Comment on above: Order Comment: Urina ry Catheter Insertion triggered Urinalysis With Culture Reflex order by discern. Performed By: #### 2 406870, [id number] #### [facility] [address] [place] [address] Globulin (S) [Mass/Vol] 2.8 g/dL Normal 1.4-4.0 [facility] Comment on above: Order Comment: Urina ry Catheter Insertion triggered Urinalysis With Culture Reflex order by discern. Performed By: #### 2 758997, [id number] #### [facility] [address] [place] [address] Glucose [Mass/Vol] 107 mg/dL Normal 55-199 [facility] Comment on above: Order Comment: Urina ry Catheter Insertion triggered Urinalysis With Culture Reflex order by discern. Performed By: #### 2 658234, [id number] #### [facility] [address] [place] [address] Potassium [Moles/Vol] 4.3 mmol/L Normal 3.5-5.3 [facility] Comment on above: Order Comment: Urina ry Catheter Insertion triggered Urinalysis With Culture Reflex order by discern. Performed By: #### 2 297896, [id number] #### [facility] [address] [place] [address] Protein [Mass/Vol] 7.0 g/dL Normal 6.0-7.8 [facility] Comment on above: Order Comment: Urina ry Catheter Insertion triggered Urinalysis With Culture Reflex order by discern. Performed By: #### 2 046968, [id number] #### [facility] [address] [place] [address] Sodium [Moles/Vol] 137 mmol/L Normal 135-145 [facility] Comment on above: Order Comment: Urina ry Catheter Insertion triggered Urinalysis With Culture Reflex order by discern. Performed By: #### 2 353930, [id number] #### [facility] [address] [place] [address] Urea nitrogen [Mass/Vol] 23 mg/dL High 5-21 [facility] Comment on above: Order Comment: Urina ry Catheter Insertion triggered Urinalysis With Culture Reflex order by discern. Performed By: #### 2 933778, [id number] #### [facility] [address] [place] [address] 91855 Urea nitrogen/Creatinine [Mass ratio] 21 No Units High 10-20 [facility] Comment on above: Order Comment: Urina ry Catheter Insertion triggered Urinalysis With Culture Reflex order by discern. Performed By: #### 2 931060, [id number] #### [facility] [address] [place] [address] 21080 Consent for Treatmenton 08-24 Consent for Treatment [id number] Normal [facility] ED Clinical Summaryon 2023 ED Clinical Summary (Inserted Image. Sara ble to display) [address] [id number] ED Clinical Summary Person Information Name: MAEGAN DYE/Raul Age: 73 Years : 1950 Sex: Female Language: Dutch PCP: AZUL GORMAN CNP Marital Status: Phone: [phone] Visit Id: Visit Reason: Altered mental status; UTI Speciality: Acuity: 3 Enc Type: Observation Med Service: Emergency Arrival: 09/07/2023 19:32:34 Discharge: LOS: 000 03:07 Checkin: 09/07/2023 19:32:34 Checkout: 09/07/2023 22:39:19 Dispo Type: Admitted as IP to this [facility] EVENTS: Event Name Event Status Request Date/Time Start Date/Time Complete Date/Time Arrive Complete 09/07/2023 19:32:34 09/07/2023 19:32:34 09/07/2023 19:32:34 Document Home Meds Request 09/07/2023 19:32:34 Triage Complete 09/07/2023 19:32:34 09/07/2023 20:10:16 09/07/2023 20:10:16 Bed Assign Complete 09/07/2023 19:32:34 09/07/2023 19:32:34 09/07/2023 19:32:34 Dr Exam Complete 09/07/2023 19:32:34 09/07/2023 19:33:47 09/07/2023 19:33:47 RN Exam Complete 09/07/2023 19:32:34 09/07/2023 22:04:54 09/07/2023 22:04:54 Registration Complete 09/07/2023 19:33:47 09/07/2023 20:09:07 09/07/2023 20:09:07 Dr Exam Complete 09/07/2023 19:33:55 09/07/2023 19:33:55 09/07/2023 19:33:55 EKG Complete 09/07/2023 19:51:09 09/07/2023 20:13:52 Pending Labs Complete 09/07/2023 19:55:47 09/07/2023 21:31:48 Lab Complete 09/07/2023 19:55:47 09/07/2023 21:31:48 Urine Collect Complete 09/07/2023 19:55:47 09/07/2023 21:31:48 Patient Care Request 09/07/2023 19:55:47 Consult Request 09/07/2023 20:02:31 Reg Complete Request 09/07/2023 20:09:07 Reg Bed Request Complete 09/07/2023 20:09:07 09/07/2023 20:09:07 09/07/2023 20:09:07 Isolation Screening Request 09/07/2023 20:10:16 Pending Labs Complete 09/07/2023 20:15:17 09/07/2023 20:15:17 09/07/2023 20:33:56 Lab Complete 09/07/2023 20:15:17 09/07/2023 20:15:17 09/07/2023 20:33:56 Pending Labs Inlab 09/07/2023 21:05:17 09/07/2023 21:05:17 Lab Inlab 09/07/2023 21:05:17 09/07/2023 21:05:17 Bed Request Request 09/07/2023 22:00:34 Reg Bed Request Complete 09/07/2023 22:00:34 09/07/2023 22:01:45 09/07/2023 22:01:45 Admit Request 09/07/2023 22:00:34 Patient Care Request 09/07/2023 22:01:46 Patient Care Request 09/07/2023 22:01:46 CARREON Form Complete 09/07/2023 22:01:47 09/07/2023 22:07:30 Patient Care Request 09/07/2023 22:01:47 Patient Care Request 09/07/2023 22:01:47 ADDRESS: [address] [place] [address] [address] [facility] [id number] PHYS DOC NOTES: MEDICAL INFORMATION: Prescriptions Given: Medications to Continue with No Changes Other Medications amlodipine (amLODIPine 5 mg Tab) 1 Tablets By Mouth every day. TAKE 1 TABLET BY MOUTH EVERY DAY. celecoxib (celecoxib 200 mg Cap) TAKE 1 CAPSULE BY MOUTH EVERY DAY. cimetidine (cimetidine 300 mg oral tablet) 2 Tablets By Mouth 3 times a day. Refills: 5. citalopram (citalopram 20 mg Tab) TAKE 1 TABLET BY MOUTH EVERY DAY. clonazepam (clonazepam 1 mg Tab) TAKE 1 TABLET BY MOUTH THREE TIMES A DAY NEEDED FOR ANXIETY. cyanocobalamin (cyanocobalamin 1000 mcg/mL Inj) 1 Milliliter Intramuscular once a month. Refills: 1. docusate (Colace 100 mg Cap) 1 Capsules By Mouth 2 times a day. Hold for diarrhea. Refills: 0. Ensure (Ensure Vanilla) Drink 1 bottle (8 fl. oz.) BID. Refills: 5. ferrous sulfate (ferrous sulfate 325 mg Tab) 1 Tablets By Mouth 3 times a day. Refills: 0. fluticasone nasal (fluticasone 0.05 mg/inh Nasal [place]) 2 Sprays Nasal Inhalation every day. each nostril. Refills: 5. lisinopril (lisinopril 20 mg Tab) 1 Tablets By Mouth every day. Refills: 1. Misc Prescription (Straight Catheters & Supplies) Use daily, as directed.. Refills: 5. Misc Prescription (walking boot) right foot knee high walking Size small boot dx m21.969, m14.679 Fax to [facility]. Refills: 0. multivitamin with minerals (Therapeutic Multiple Vitamins with Minerals Tab) By Mouth every day. mupirocin topical (mupirocin Top 2% Oint) 1 Application Topical 3 times a day. Refills: 0. ondansetron (ondansetron [...] bedtime) as needed for constipation. Refills: 1. trazodone (traZODONE 150 mg Tab) 1 Tablets By Mouth once a day (at bedtime). Do not give with clonazepam. Refills: 3. PATIENT EDUCATION INFORMATION: Instructions: Follow up: DIAGNOSIS: 1:Encephalopathy; 2:Abnormal urine; 3:Neurogenic bladder disorder; 4:HTN (hypertension); 5:COPD without exacerbation; 6:Bipolar disorder, manic, moder (more content not included)... Normal [facility] ED Note-Nursingon 09-07-2023 ED Note-Nursing spoke with Irma Chakraborty at this time, pt. was evaluated last night and does not meet psychiatric admission criteria. LULA Husain speaks with MICH over the phone at this time. Normal [facility] ED Patient Education Noteon 09-07-2023 ED Patient Education Note Normal [facility] ED Patient Summaryon ED Patient Summary (Inserted Image. Sara ble to display) [place] [id number] Patient Discharge Instructions Person Information Name: MAEGAN DYE Age: 73 Years Arrival Date: 09/07/2023 19:32:34 Discharge Diagnosis: 1:Encephalopathy; 2:Abnormal urine; 3:Neurogenic bladder disorder; 4:HTN (hypertension); 5:COPD without exacerbation; 6:Bipolar disorder, manic, moderate; 7:Dementia Primary Care Physician: AZUL GORMAN CNP Provider Information Primary Provider: Santiago Harrington DO [employer] Vertical:None The exam and treatment you received in the Emergency Department were for an urgent problem and are not intended as complete care. It is important that you follow up with a doctor, nurse practitioner, or physician?s assistant executive housekeeper for ongoing care. If your symptoms become [...] opioids can be used to help relieve sinxvupl-gd-zbgfgk pain and are often prescribed following a [...] be struggling with addiction, tell your health health care aide and ask for guidance or call [facility]?S National Helpline at 2-092-040-DFDM. k Source: Department of Health and [facility] (more content not included)... Normal [facility] Ethanolon 09-07-2023 Ethanol Lvl <10 Normal <=11 [facility] Comment on above: Performed By: #### 2 [id number] ####[facility] [address] [place] [address] HEMATOLOGYOrdered By: SYSTEM SYSTEM on 09-07-2023 Basophils/100 [...] from Medicareon 08-24 Message from Medicare [id number] Normal [facility] Pre-Arrival Noteon Pre-Arrival Note Pre-Arrival Summary Name: MAEGAN, Current Date: 09/07/2023 19:32:48 EDT Gender: Date of : Age: Pre-Arrival Type: EMS ETA: 09/07/2023 19:50:00 EDT Primary Care Physician: Presenting Problem: UTI AMS Pre-Arrival User: Pete Vernon RN Referring Source: Location: Completion Date/Time: 09/07/2023 19:20:00 [facility] Emergency Department Pre-Hospital Report Form _ Vital Signs: Pre-Hospital Report: Treatment in Route: Response to Treatment: Misc. Issues: Normal [facility] U Drug Screenon 09-07-2023 Amphetamines Screen method >1000 ng/mL Ql (U) Negative Normal NEGATIVE [facility] Comment on above: Result Comment: Nega tive Cutoff: <1000 ng/mL Performed By: #### 4 [id number] #### [facility] [address] [place] [address] Barbiturates Screen Ql (U) Negative Normal NEGATIVE [facility] Comment on above: Result Comment: Nega tive Cutoff: <200 ng/mL Performed By: #### 4 [id number], [id number] #### [facility] [facility] [address] [place] [address] Benzodiazepines Ql (U) Negative Normal NEGATIVE [facility] Comment on above: Result Comment: Nega tive Cutoff: <200 ng/mL Performed By: #### 4 [id number], [id number] #### [facility] [address] [place] [address] Cannabinoids Screen Ql (U) Negative Normal NEGATIVE [facility] Comment on above: Result Comment: Nega tive Cutoff: <50 ng/mL Performed By: #### 4 [id number], [id number] #### [facility] [address] [place] [place] [address] Cocaine Ql (U) Negative Normal NEGATIVE [facility] Comment on above: Result Comment: Nega tive Cutoff: <300 ng/mL Performed By: #### 4 [id number], [id number] #### [facility] [address] [place] [address] Opiates Screen Ql (U) Positive Abnormal NEGATIVE [facility] Comment on above: Result Comment: Nega tive Cutoff: <300 ng/mL Performed By: #### 4 [id number], [id number] #### [facility] [address] [place] [address] Phencyclidine Screen method >25 ng/mL Ql (U) Negative Normal NEGATIVE [facility] Comment on above: Result Comment: Nega tive Cutoff: <25 ng/mL These drug screen results are to be used for medical (i.e., treatment) purposes only. Unconfirmed drug screening results must not be used for non-medical purposes (e.g., employment testing, legal testing). Performed By: #### 4 [id number], [id number] #### [facility] [address] [place] [address] U Fentanyl Negative Normal NEGATIVE [facility] Comment on above: Result Comment: Nega tive Cutoff: <5 ng/mL These drug screen results are to be used for medical (i.e., treatment) purposes only. Unconfirmed drug screening results must not be used for non-medical purposes (e.g., employment testing, legal testing). Performed By: #### 4 [id number], [id number] #### [facility] [address] [place] [address] UA with Cult Rflxon 09-07-19 24 Bacteria Auto Ql (U) Trace Normal Trace Fish er [facility] Comment on above: Performed By: #### 4 [id number], [id number] #### [facility] [address] [place] [address] Bilirubin Ql (U) Negative Normal Negative [facility] Comment on above: Performed By: #### 4 [id number], [id number] #### [facility] [address] [place] [address] Clarity (U) Clear Normal Clear [facility] Comment on above: Performed By: #### 4 [id number], [id number] #### [facility] [address] [place] [address] Color (U) Light-Yellow Normal Yellow [facility] Comment on above: Result Comment: Micr oscopic readings are only performed on those samples that meet specific criteria set forth by [facility]. Performed By: #### 4 [id number], [id number] #### [facility] [address] [place] [address] Crystals.amorphous Computer assisted Ql (U) Present Abnormal [facility] Comment on above: Performed By: #### 4 [id number], [id number] #### [facility] [address] [place] [address] Epithelial cells.squamous Auto (Urine sed) [#/Area] 0-2 Normal 0-2 [facility] Comment on above: Performed By: #### 4 [id number], [id number] #### [facility] [address] [place] [address] Glucose Ql (U) Negative Normal Negative [facility] Comment on above: Performed By: #### 4 [id number], [id number] #### [facility] [address] [place] [address] Hemoglobin Auto test strip (U) [Mass/Vol] Negative Normal Negative [facility] Comment on above: Performed By: #### 4 [id number], [id number] #### [facility] [address] [place] [address] Ketones Auto test strip Ql (U) Negative Normal Negative [facility] Comment on above: Performed By: #### 4 [id number], [id number] #### [facility] [address] [place] [address] Leukocyte esterase Auto test strip Ql (U) 250 Gretchen/uL Abnormal Negative [facility] Comment on above: Performed By: #### 4 [id number], [id number] #### [facility] [address] [place] [address] Mucus Auto Ql (U) Trace Normal Negative [facility] Comment on above: Performed By: #### 4 [id number], [id number] #### [facility] [address] [place] [address] Nitrite Auto test strip Ql (U) Negative Normal Negative [facility] Comment on above: Performed By: #### 4 [id number], [id number] #### [facility] [address] [place] [address] pH (U) 6.0 [pH] Invalid Interpretation Code 5.0-9.0 [facility] Comment on above: Performed By: #### 4 [id number], [id number] #### [facility] [address] [place] [address] Protein Ql (U) Negative Normal Negative [facility] Comment on above: Performed By: #### 4 [id number], [id number] #### [facility] [address] [place] [address] RBC Ql (U) 0-3 Normal 0-3 [facility] Comment on above: Performed By: #### 4 [id number], [id number] #### [facility] [address] [place] [address] Specific gravity (U) [Rel density] 1.015 Invalid Interpretation Code 1.005-1.03 0 [facility] Comment on above: Performed By: #### 4 [id number], [id number] #### [facility] [address] [place] [address] Transitional cells Computer assisted (U) [#/Area] 0-2 Normal 0-2 [facility] Comment on above: Performed By: #### 4 [id number], [id number] #### [facility] [address] [place] [address] Urobilinogen (U) [Mass/Vol] Negative Normal Negative [facility] Comment on above: Performed By: #### 4 [id number], [id number] #### [facility] [address] [place], [place] [id number] WBC Auto (Urine sed) [#/Area] 16-25 Abnormal 0-5 [facility] Comment on above: Performed By: #### 4 [id number], [id number] #### [facility] [address] [place], [place] [id number] URINALYSISOrdered By: SYSTEM SYSTEM on 09-07-2023 Bacteria [...] that meet specific criteria set forth by [facility]. Crystals.amorphous Computer assisted Ql (U) Present [...] 16-25 graded/HPF Invalid Interpretation Code 0-5graded/ HPF [facility] UA Auto SS URINALYSISOrdered By: Rodrigue ferrara on 09-07-2023 UA Spec Desc Catheter 6 (09/07/23 8:55 PM) Normal [facility] UA Auto SS Work Phone: Comment on above: Result Comment: Test results were corrected for specimen description. VANCOMYCIN:SUSC:PT:ISOLATE:O RDQN:MICOrdered By: Meghann Ham on 09-07-2023 Vancomycin REINALDO [Susc] 15,000 cfu/ml Staphylococcus epidermidis [facility] Vancomycin REINALDO [Susc]Ordered By: Meghann Ham on 09-07-2023 Staphylococcus epidermidis Staphylococcus epidermidis [facility] eGFRon 09-07-2023 eGFR 52 mL/min/1.73 m2 Low >=59 [facility] Comment on above: Order Comment: Order added by Discern Expert. Performed By: #### 2 [id number], [id number] #### [facility] [address] [place] [address] Alanine aminotransferase [En zymatic activity/volume] in Serum or PlasmaOrdered By: Maciej Rodriguez on 09-06-2023 ALT [Catalytic activity/Vol] 8 U/L Normal 7-[address] [facility] Comment on above: Performed By: #### C UU, ADDONUAPLUS #### [facility] [address] [place], [place] [id number] [facility] Albumin [Mass/volume] in Ser um or Plasma by Bromocresol green (BCG) dye binding methoOrdered By: Maciej Rodriguez on 09-06-2023 Albumin BCG dye [Mass/Vol] 4.1 g/dL 3.5-5.[address] [facility] Alkaline phosphatase [Enzyma tic activity/volume] in Serum or PlasmaOrdered By: Maciej Rodriguez on 09-06-2023 ALP [Catalytic activity/Vol] 84 U/L Normal 34-[address] [facility] Comment on above: Performed By: #### C UU, ADDONUAPLUS #### [facility] [address] [id number] [place] Amphetamine Screen Ql (U)Ord ered By: Maciej Rodriguez on 09-06-2023 Amphetamines Ql (U) Negative Negative [facility] Aspartate aminotransferase [ Enzymatic activity/volume] in Serum or PlasmaOrdered By: Maciej Rodriguez on 09-06-2023 AST [Catalytic activity/Vol] 18 U/L Normal 13-[address] [facility] Comment on above: Performed By: #### C UU, ADDONUAPLUS #### [address] Automated basophil %Ordered By: Maciej Rodriguez on 09-06-2023 Basophils/100 WBC (Bld) 0.8 % Normal . [facility] Comment on above: Performed By: #### C UU, ADDONUAPLUS #### [address] Automated basophil countOrde red By: Maciej Rodriguez on 09-06-2023 Basophils (Bld) [#/Vol] 0.0 10*3/uL Normal 0.0-0.[address] [facility] Comment on above: Result Comment: PERF ORMED BY: [place] [address] PATHOLOGIST BRAKE OPERATOR HEAVY D[employer]Y CORIE SILVA M.D. Performed By: #### C UU, ADDONUAPLUS #### [address] Automated blood monocyte cou ntOrdered By: Maciej Rodriguez on 09-06-2023 Monocytes (Bld) [#/Vol] 0.6 10*3/uL Normal 0.0-0.[address] [facility] Comment on above: Performed By: #### C UU, ADDONUAPLUS #### [address] Automated eosinophil %Ordere d By: Maciej Rodriguez on 09-06-2023 Eosinophils/100 WBC (Bld) 3.1 % Normal . [facility] Comment on above: Performed By: #### C UU, ADDONUAPLUS #### [address] Automated eosinophil countOr dered By: Maciej Rodriguez on 09-06-2023 Eosinophils (Bld) [#/Vol] 0.2 10*3/uL Normal 0.0-0.[address] [facility] Comment on above: Performed By: #### C UU, ADDONUAPLUS #### [facility] [address] [place] [address] Automated erythrocytes count in urine sediment (number/area)Ordered By: Maciej Rodriguez on 09-06-2023 RBC Auto (Urine sed) [#/Area] 3-4 [HPF] 0-[address] [facility] Automated leukocytes count i n urine sediment (number/area)Ordered By: Maciej Rodriguez on 09-06-2023 WBC Auto (Urine sed) [#/Area] 3-4 [HPF] 0-[address] [facility] Automated monocyte %Ordered By: Maciej Rodriguez on 09-06-2023 Monocytes/100 WBC (Bld) 10.9 % Normal . [facility] Comment on above: Performed By: #### C UU, ADDONUAPLUS #### [address] Automated neutrophil %Ordere d By: Maciej Rodriguez on 09-06-2023 Neutrophils/100 WBC (Bld) 56.7 % Normal . [facility] Comment on above: Performed By: #### C UU, ADDONUAPLUS #### [address] Automated urine color determ inationOrdered By: Maciej Rodriguez on 09-06-2023 Color (U) Yellow Normal Yellow [facility] Comment on above: Order Comment: Name Collection Type:: Clean-Voided Midstream Performed By: #### C MP, PT, CBC, PTT, HS TROP #### [facility] [address] [place] [address] Barbiturates [Presence] in U rine by Screen methodOrdered By: Maciej Rodriguez on 09-06-2023 Barbiturates Screen Ql (U) Negative Negative [facility] Benzodiazepines Screen Ql (U )Ordered By: Maciej Rodriguez on 09-06-2023 Benzodiazepines Ql (U) Negative Negative [facility] Benzoylecgonine [Presence] i n Urine by Screen methodOrdered By: Maciej Rodriguez on 09-06-2023 Benzoylecgonine Screen Ql (U) Negative Negative [facility] Bilirubin Test strip Ql (U)O rdered By: Maciej Rodriguez on 09-06-2023 Bilirubin Ql (U) Negative Negative [facility] Bilirubin.total [Mass/volume ] in Serum or PlasmaOrdered By: Maciej Rodriguez on 09-06-2023 Bilirubin [Mass/Vol] 0.5 mg/dL Normal 0.3-1.0 [facility] Comment on above: Performed By: #### C UU, ADDONUAPLUS #### [facility] [address] COVID CepheidOrdered By: Ml Rodriguez on 09-06-2023 SARS-CoV-2 (COVID-19) Ab IA Ql Negative Negative [facility] Comment on above: This is a duplicate Cepheid Xpert Xpress CoV-2/Flu/RSV Plus RNA by RT-PCR result to be used for statistical tracking purpose only. SARS-CoV-2 (COVID-19) RNA NAOMIE+probe Ql (Unsp spec) [facility] COVID-19 / Flu A/B / RSV [...] or Cepheid Disclaimer revoked sooner. PERFORMED BY: [place] [address] PATHOLOGIST BRAKE OPERATOR HEAV[employer] CORIE SILVA M.D. Normal [facility] Comment on above: Performed By: #### C OVID19 FLU RSV, CEPHEID NEG #### [address] head/brain wo conon 09-05 CT head/brain wo con [facility] [place] [address] CT Scan Report Signed Patient: Maegan Dye MR#: [id number] : 1950 Acct:[id number] Age/Sex: 73 / F ADM Date: 09/06/23 Loc: ER Room: Type: [facility] ER Attending Dr: Copies to: Maciej Rodriguez [...] Ángel Littlejohn M.D.09/06/2023 2:58 PM Dictation Location: [place] [address] Transcribed By: YUSEF 09/06/23 1458 Dictated By: Ángel Littlejohn II, MD 09/06/23 1455 Signed By: 09/06/23 145 Normal [facility] Calcium [Mass/volume] in Ser um or PlasmaOrdered By: Maciej Rodriguez on 09-06-2023 Calcium [Mass/Vol] 9.8 mg/dL Normal 8.6-10.3 [facility] Comment on above: Performed By: #### C UU, ADDONUAPLUS #### [facility] [address] Cannabinoids [Presence] in U rine by Screen methodOrdered By: Maciej Rodriguez on 09-06-2023 Cannabinoids Screen Ql (U) Negative Negative [facility] Comment on above: These are unconfirme d results and should not be used for legal purposes. Drug Cut-Off Concentration: AMPH 1000 ng/mL PHILL 200 ng/mL ROBERT 200 ng/mL COCM 300 ng/mL OP 300 ng/mL PCP 25 ng/mL THC 20 ng/mL Carbon dioxide, total [Moles /volume] in Serum or PlasmaOrdered By: Maciej Rodriguez on 09-06-2023 CO2 [Moles/Vol] 30.5 mmol/L Normal 21.0-31.0 [facility] Comment on above: Performed By: #### C UU, ADDONUAPLUS #### [address] Cepheid COVID PCR Negativeon 09-06-2023 SARS-CoV-2 (COVID-19) RNA NAOMIE+probe Ql (Unsp spec) Negative Normal Negative [facility] Comment on above: Result Comment: This is a duplicate Cepheid Xpert Xpress CoV-2/Flu/RSV Plus RNA by RT-PCR result to be used for statistical tracking purpose only. PERFORMED BY: [place] [address] PATHOLOGIST BRAKE OPERATOR HEAV[employer] CORIE SILVA M.D. Performed By: #### C OVID19 FLU RSV, CEPHEID NEG #### [address] Chloride [Moles/volume] in S clarisa or PlasmaOrdered By: Maciej Rodriguez on 09-06-2023 Chloride [Moles/Vol] 97 mmol/L Low 98-107 [facility] Comment on above: Performed By: #### C UU, ADDONUAPLUS #### [address] Complete Blood Count Auto Di ffon 09-06-2023 Mean Corpuscular HGB Conc 32.4 g/dL Normal 32.0-35.0 [facility] Comment on above: Performed By: #### C UU, ADDONUAPLUS #### [address] Monocytes/100 WBC (Bld) 15.52 % Normal 0.00-20.00 [facility] Comment on above: Performed By: #### C UU, ADDONUAPLUS #### [address] NRBC% 0.1 /100{WBC} Normal 0-0.5 [facility] Comment on above: Performed By: #### C UU, ADDONUAPLUS #### [address] Comprehensive Metabolic Pane isauro 09-06-2023 Albumin [Mass/Vol] 4.1 g/dL Normal 3.5-5.7 [facility] Comment on above: Performed By: #### C UU, ADDONUAPLUS #### [address] Creatinine Clr Calc Pharmacy 31.85 Normal [facility] Comment on above: Result Comment: PERF ORMED BY: [place] [address] PATHOLOGIST BRAKE OPERATOR HEAV[employer] D[employer] CORIE SILVA M.D. Performed By: #### C UU, ADDONUAPLUS #### [address] GFR/1.73 sq M.predicted MDRD (S/P/Bld) [Vol rate/Area] 42.104 mL/min/{1.73_m2} Normal [facility] Comment on above: Performed By: #### C UU, ADDONUAPLUS #### [address] Creatinine [Mass/volume] in Serum or PlasmaOrdered By: Maciej Rodriguez on 09-06-2023 Creatinine [Mass/Vol] 1.32 mg/dL High 0.60-1.20 [facility] Comment on above: Performed By: #### C UU, ADDONUAPLUS #### [place] [address] [place] Dipstick and Microscopicon 0 09-06-2023 Appearance (U) Clear Normal Clear [facility] Comment on above: Order Comment: Name Collection Type:: Clean-Voided Midstream Performed By: #### C MP, PT, CBC, PTT, HS TROP #### [address] Bacteria,Urine 1+ High None Seen [facility] Comment on above: Order Comment: Name Collection Type:: Clean-Voided Midstream Performed By: #### C MP, PT, CBC, PTT, HS TROP #### [facility] [address] [place] [address] [place] Bilirubin,Urine Negative Normal Negative [facility] Comment on above: Order Comment: Name Collection Type:: Clean-Voided Midstream Performed By: #### C MP, PT, CBC, PTT, HS TROP #### [facility] [address] [place] [address] [place] Glucose Ql (U) Normal Normal Normal [facility] Comment on above: Order Comment: Name Collection Type:: Clean-Voided Midstream Performed By: #### C MP, PT, CBC, PTT, HS TROP #### [place] [address] [place] Hyaline Casts,Urine 0-8 Normal 0-8 [facility] Comment on above: Order Comment: Name Collection Type:: Clean-Voided Midstream Performed By: #### C MP, PT, CBC, PTT, HS TROP #### [facility] [address] [place] [address] [place] Ketones Ql (U) Negative Normal Negative [facility] Comment on above: Order Comment: Name Collection Type:: Clean-Voided Midstream Performed By: #### C MP, PT, CBC, PTT, HS TROP #### [facility] [address] [place] [address] [place] Leukocyte esterase Test strip Ql (U) 2+ High Negative [facility] Comment on above: Order Comment: Name Collection Type:: Clean-Voided Midstream Performed By: #### C MP, PT, CBC, PTT, HS TROP #### [facility] [address] [place] [address] [place] Nitrite,Urine Negative Normal Negative [facility] Comment on above: Order Comment: Name Collection Type:: Clean-Voided Midstream Performed By: #### C MP, PT, CBC, PTT, HS TROP #### [facility] [address] [place] [address] [place] Occult Blood,Urine Negative Normal Negative [facility] Comment on above: Order Comment: Name Collection Type:: Clean-Voided Midstream Result Comment: PERF ORMED BY: [place] [address] PATHOLOGIST BRAKE OPERATOR HEAV[employer] D[employer]Y CORIE SILVA M.D. Performed By: #### C MP, PT, CBC, PTT, HS TROP #### [address] Protein,Urine Negative Normal Negative [facility] Comment on above: Order Comment: Name Collection Type:: Clean-Voided Midstream Performed By: #### C MP, PT, CBC, PTT, HS TROP #### [address] RBC,Urine 3-4 Normal 0-4 [facility] Comment on above: Order Comment: Name Collection Type:: Clean-Voided Midstream Performed By: #### C MP, PT, CBC, PTT, HS TROP #### [address] Specificy [place],Urine 1.011 Normal 1.001-1.03 0 [facility] Comment on above: Order Comment: Name Collection Type:: Clean-Voided Midstream Performed By: #### C MP, PT, CBC, PTT, HS TROP #### [address] Squamous Epithelial Cell,Urine 5-9 High 0-2 [facility] Comment on above: Order Comment: Name Collection Type:: Clean-Voided Midstream Performed By: #### C MP, PT, CBC, PTT, HS TROP #### [place] [address] [place] Urobilinogen,Urine Normal Normal Normal [facility] Comment on above: Order Comment: Name Collection Type:: Clean-Voided Midstream Performed By: #### C MP, PT, CBC, PTT, HS TROP #### [address] WBC,Urine 3-4 Normal 0-4 [facility] Comment on above: Order Comment: Name Collection Type:: Clean-Voided Midstream Performed By: #### C MP, PT, CBC, PTT, HS TROP #### [place] [address] [place] Yeast,Urine None Seen Normal None Seen [facility] Comment on above: Order Comment: Name Collection Type:: Clean-Voided Midstream Result Comment: PERF ORMED BY: [place] [address] PATHOLOGIST BRAKE OPERATOR HEAVY DUTY CORIE SILVA M.D. Performed By: #### C MP, PT, CBC, PTT, HS TROP #### [place] [address] [place] Drug Screen,Urineon 09-06-19 24 Amphetamine Screen,Urine Negative Normal Negative [facility] Comment on above: Performed By: #### C MP, PT, CBC, PTT, HS TROP #### [address] Barbiturate Screen,Urine Negative Normal Negative [facility] Comment on above: Performed By: #### C MP, PT, CBC, PTT, HS TROP #### [address] Benzodiazepines Screen,Urine Negative Normal Negative [facility] Comment on above: Performed By: #### C MP, PT, CBC, PTT, HS TROP #### [address] Cannabinoid Screen,Urine Negative Normal Negative [facility] Comment on above: Result Comment: Thes e are unconfirmed results and should not be used for legal purposes. Drug Cut-Off Concentration: AMPH 1000 ng/mL PHILL 200 ng/mL ROBERT 200 ng/mL COCM 300 ng/mL OP 300 ng/mL PCP 25 ng/mL THC 20 ng/mL PERFORMED BY: [place] [address] PATHOLOGIST BRAKE OPERATOR HEAVY DUTY CORIE SILVA M.D. Performed By: #### C MP, PT, CBC, PTT, HS TROP #### [place] [address] [place] Cocaine Screen,Urine Negative Normal Negative [facility] Comment on above: Performed By: #### C MP, PT, CBC, PTT, HS TROP #### [address] Opiate Screen,Urine Positive High Negative [facility] Comment on above: Performed By: #### C MP, PT, CBC, PTT, HS TROP #### [address] Phencyclidine Screen,Urine Negative Normal Negative [facility] Comment on above: Performed By: #### C MP, PT, CBC, PTT, HS TROP #### [address] Erythrocyte distribution wid th [Ratio] by Automated countOrdered By: Maciej Rodriguez on 09-06-2023 Erythrocyte distribution width (RBC) [Ratio] 12.8 % Normal 11.9-15.[address] [facility] Comment on above: Performed By: #### C UU, ADDONUAPLUS #### [address] Erythrocytes [#/volume] in B lood by Automated countOrdered By: Maciej Rodriguez on 09-06-2023 RBC (Bld) [#/Vol] 4.73 10*6/uL Normal 3.60-5.00 [facility] Comment on above: Performed By: #### C UU, ADDONUAPLUS #### [address] Ethanol [Mass/volume] in Ser um or PlasmaOrdered By: Maciej Rodriguez on 09-06-2023 Ethanol [Mass/Vol] mg/dL Normal [facility] Comment on above: Performed By: #### C UU, ADDONUAPLUS #### [address] Ethanol [Mass/Vol] TNP [facility] Comment on above: Test not performed Ethyl Alcohol Profileon 08-24 Percent Ethanol Not performed Normal [facility] Comment on above: Result Comment: PERF ORMED BY: [place] [address] PATHOLOGIST BRAKE OPERATOR HEAVY DUTY CORIE SILVA M.D. Performed By: #### C UU, ADDONUAPLUS #### [address] Glucose [Mass/volume] in Ser um or PlasmaOrdered By: Maciej Rodriguez on 09-06-2023 Glucose [Mass/Vol] 115 mg/dL High 70-100 [facility] Comment on above: ADA recommended refe rence rangeRandom Glucose Reference Range is dependent on time and content of last meal. Glucose of more than 200 mg/dL in a nonstressed, ambulatory subject supports the diagnosis of Diabetes Mellitus. Result Comment: [place] om Glucose Reference Range is dependent on time and content of last meal. Glucose of more than 200 mg/dL in a nonstressed, ambulatory subject supports the diagnosis of Diabetes Mellitus. ADA recommended reference range Performed By: #### C UU, ADDONUAPLUS #### [address] Hematocrit [Volume Fraction] of Blood by Automated countOrdered By: Maciej Rodriguez on 09-06-2023 Hematocrit (Bld) [Volume fraction] 41.2 % Normal 34.0-46.[address] [facility] Comment on above: Performed By: #### C UU, ADDONUAPLUS #### [address] Hemoglobin [Mass/volume] in BloodOrdered By: Maciej Rodriguez on 09-06-2023 Hemoglobin (Bld) [Mass/Vol] 13.3 g/dL Normal 11.8-15.[address] [facility] Comment on above: Performed By: #### C UU, ADDONUAPLUS #### [address] Ketones Auto test strip (U) [Mass/Vol]Ordered By: Maciej Rodriguez on 09-06-2023 Ketones (U) [Mass/Vol] Negative Negative [facility] - UrinalysisOrder ed By: Maciej Rodriguez on 09-06-2023 Hyaline casts LM Ql (Urine sed) 0-8 [LPF] 0-[address] [facility] Leukocytes [#/volume] correc kenyatta for nucleated erythrocytes in Blood by Automated counOrdered By: Maciej Rodriguez on 09-06-2023 WBC corrected for nucl RBC Auto (Bld) [#/Vol] 5.9 10*3/uL 3.8-11.[address] [facility] Leukocytes [#/volume] in Blo od by Automated countOrdered By: Maciej Rodriguez on 09-06-2023 WBC (Bld) [#/Vol] 5.9 10*3/uL Normal 3.8-11.6 [facility] Comment on above: Performed By: #### C UU, ADDONUAPLUS #### [facility] [address] [place] [address] [place] Lymphocytes [#/volume] in Bl ood by Automated countOrdered By: Maciej Rodriguez on 09-06-2023 Lymphocytes (Bld) [#/Vol] 1.7 10*3/uL Normal 1.00-4.[address] [facility] Comment on above: Performed By: #### C UU, ADDONUAPLUS #### [facility] [address] [place] [address] [place] Lymphocytes/100 leukocytes i n Blood by Automated countOrdered By: Maciej Rodriguez on 09-06-2023 Lymphocytes/100 WBC (Bld) 28.5 % Normal . [facility] Comment on above: Performed By: #### C UU, ADDONUAPLUS #### [facility] [address] [place] [address] [place] MCH [Entitic mass] by Automa kenyatta countOrdered By: Maciej Rodriguez on 09-06-2023 MCH (RBC) [Entitic mass] 28.2 pg Normal 24.7-34.[address] [facility] Comment on above: Performed By: #### C UU, ADDONUAPLUS #### [facility] [address] [place] [address] MCHC Auto (RBC) [Mass/Vol]Or dered By: Maciej Rodriguez on 09-06-2023 MCHC (RBC) [Mass/Vol] 32.4 g/dL 32.0-35.0 [facility] MCV [Entitic volume] by Auto mated countOrdered By: Maciej Rodriguez on 09-06-2023 MCV (RBC) [Entitic vol] 87.1 fL Normal 80-[address] [facility] Comment on above: Performed By: #### C UU, ADDONUAPLUS #### [facility] [address] Monocyte distribution width [Entitic volume] in Blood by AutomatedOrdered By: Maciej Rodriguez on 09-06-2023 Monocyte distribution width Auto (Bld) [Entitic vol] 15.52 % 0.00-20.[address] [facility] Neutrophils [#/volume] in Bl ood by Automated countOrdered By: Maciej Rodriguez on 09-06-2023 Neutrophils (Bld) [#/Vol] 3.3 10*3/uL Normal 1.8-7.[address] [facility] Comment on above: Performed By: #### C UU, ADDONUAPLUS #### [facility] [address] Nitrite Test strip Ql (U)Ord ered By: Maciej Rodriguez on 09-06-2023 Nitrite Ql (U) Negative Negative [facility] No Panel InformationOrdered By: Maciej Rodriguez on 09-06-2023 Estimated GFR (CKD-EPI) 42.104 mL/Min [facility] Creatinine Clearance (Chem 31.[address] [facility] Nucleated erythrocytes [Pres ence] in Blood by Automated countOrdered By: Maciej Rodriguez on 09-06-2023 Nucleated RBC Auto Ql (Bld) 0.1 /100{WBC} 0-0.[address] [facility] Opiates [Presence] in Urine by Screen methodOrdered By: Maciej Rodriguez on 09-06-2023 Opiates Screen Ql (U) Positive Negative [facility] Phencyclidine Screen Ql (U)O rdered By: Maciej Rodriguez on 09-06-2023 Phencyclidine Ql (U) Negative Negative [facility] Platelet mean volume [Entiti c volume] in Blood by Automated countOrdered By: Maciej Rodriguez on 09-06-2023 Platelet mean volume (Bld) [Entitic vol] 7.4 fL Normal 6.3-10.[address] [facility] Comment on above: Performed By: #### C UU, ADDONUAPLUS #### [facility] [address] Platelets [#/volume] in Bloo d by Automated countOrdered By: Maciej Rodriguez on 09-06-2023 Platelets (Bld) [#/Vol] 277 10*3/uL Normal 150-[address] [facility] Comment on above: Performed By: #### C UU, ADDONUAPLUS #### [address] Potassium [Moles/volume] in Serum or PlasmaOrdered By: Maciej Rodriguez on 09-06-2023 Potassium [Moles/Vol] 4.5 mmol/L Normal 3.5-5.1 [facility] Comment on above: Performed By: #### C UU, ADDONUAPLUS #### [address] Protein Auto test strip (U) [Mass/Vol]Ordered By: Maciej Rodriguez on 09-06-2023 Protein (U) [Mass/Vol] Negative Negative [facility] Protein [Mass/volume] in Ser um or PlasmaOrdered By: Maciej Rodriguez on 09-06-2023 Protein [Mass/Vol] 7.5 g/dL Normal 6.4-8.9 [facility] Comment on above: Performed By: #### C UU, ADDONUAPLUS #### [facility] [address] [place] [address] Serum globulin measurement b y calculation (mass/volume)Ordered By: Maciej Rodriguez on 09-06-2023 Globulin (S) [Mass/Vol] 3.4 g/dL Normal [facility] Comment on above: Performed By: #### C UU, ADDONUAPLUS #### [facility] [address] [place] [address] Serum or plasma albumin/glob ulin mass ratioOrdered By: Maciej Rodriguez on 09-06-2023 Albumin/Globulin [Mass ratio] 1.2 {ratio} [facility] Comment on above: Performed By: #### C UU, ADDONUAPLUS #### [address] Serum or plasma anion gap de terminationOrdered By: Maciej Rodriguez on 09-06-2023 Anion gap [Moles/Vol] 11.0 mmol/L Normal 6.0-15.0 [facility] Comment on above: Performed By: #### C UU, ADDONUAPLUS #### [address] Sodium [Moles/volume] in Ser um or PlasmaOrdered By: Maciej Rodriguez on 09-06-2023 Sodium [Moles/Vol] 134 mmol/L Low 136-145 [facility] Comment on above: Performed By: #### C UU, ADDONUAPLUS #### [address] Specific gravity Auto test s trip (U) [Rel density]Ordered By: Maciej Rodriguez on 09-06-2023 Specific gravity (U) [Rel density] 1.011 1.001-1.[address] [facility] Squamous epithelial cells de tection in urine sediment by light microscopyOrdered By: Maciej Rodriguez on 09-06-2023 Epithelial cells.squamous LM Ql (Urine sed) 5-9 [HPF] 0-[address] [facility] Troponin I High Sensitivityo n 09-06-2023 Troponin I High Sensitivity 2.7 pg/mL Normal 0.0-15.0 [facility] Comment on above: Result Comment: PERF ORMED BY: [place] [address] PATHOLOGIST BRAKE OPERATOR HEAVY DUTY CORIE SILVA M.D. Performed By: #### H S TROP #### [address] Troponin I.cardiac [Mass/vol ume] in Serum or Plasma by Detection limit <= 0.01 ng/Ordered By: Maciej Rodriguez on 09-06-2023 Troponin I.cardiac DL <= 0.01 ng/mL [Mass/Vol] 2.7 pg/mL 0.0-15.[address] [facility] Urea nitrogen [Mass/volume] in Serum or PlasmaOrdered By: Maciej Rodriguez on 09-06-2023 Urea nitrogen [Mass/Vol] 18 mg/dL Normal 7-[address] [facility] Comment on above: Performed By: #### C UU, ADDONUAPLUS #### [facility] [address] [place] [address] Urine bacteria detection by automated methodOrdered By: Maciej Rodriguez on 09-06-2023 Bacteria Auto Ql (U) 1+ None Seen [facility] Urine clarity by refractomet ry automatedOrdered By: Maciej Rodriguez on 09-06-2023 Clarity Refractometry automated (U) Clear Clear [facility] Urine glucose measurement by automated test strip (mass/volume)Ordered By: Maciej Rodriguez on 09-06-2023 Glucose Auto test strip (U) [Mass/Vol] Normal mg/dL Normal [facility] Urine hemoglobin detection b y automated test stripOrdered By: Maciej Rodriguez on 09-06-2023 Hemoglobin Auto test strip Ql (U) Negative Negative [facility] Urine leukocyte esterase det ection by automated test stripOrdered By: Maciej Rodriguez on 09-06-2023 Leukocyte esterase Auto test strip Ql (U) 2+ Negative [facility] Urine pH measurement by auto mated test stripOrdered By: Maciej Rodriguez on 09-06-2023 pH (U) 6.5 [pH] Normal 5.0-9.[address] [facility] Comment on above: Order Comment: Name Collection Type:: Clean-Voided Midstream Performed By: #### C MP, PT, CBC, PTT, HS TROP #### [facility] [address] [place] [address] [place] Urobilinogen Auto test strip (U) [Mass/Vol]Ordered By: Maciej Rodriguez on 09-06-2023 Urobilinogen (U) [Mass/Vol] Normal mg/dL Normal [facility] XR chest 2V*on 09-06-2023 XR chest 2V* [facility] [address] [place] [address] XRay Report Signed Patient: Maegan Dye MR#: [id number] : 1950 Acct:[id number] Age/Sex: 73 / F ADM Date: 09/06/23 Loc: ER Room: Type: [facility] ER Attending Dr: Copies to: Maciej Rodriguez [...] Ángel Littlejohn M.D.09/06/2023 3:17 PM Dictation Location: [place] [address] Transcribed By: [facility] 09/06/23 1517 Dictated By: Ángel Littlejohn II, MD 09/06/23 1516 Signed By: 09/06/23 1517 Normal [facility] Yeast detection in urine sed iment by light microscopyOrdered By: Maciej Rodriguez on 09-06-2023 Yeast LM Ql (Urine sed) None seen [HPF] None Seen [facility] Cholesterol [Mass/volume] in Serum or PlasmaOrdered By: Julian Arechiga on 08-28-2023 Cholesterol [Mass/Vol] 151 mg/dL Normal 140-200 [facility] Comment on above: Chol less than 200 m g/dl low riskChol 201-239 mg/dl borderline riskChol 240 mg/dl and greater high risk Result Comment: Chol less than 200 mg/dl low risk Chol 201-239 mg/dl borderline risk Chol 240 mg/dl and greater high risk Performed By: #### C LOBO BA #### [address] Cholesterol in LDL Calc [Mas s/Vol]Ordered By: Julian Arechiga on 08-28-2023 Cholesterol in LDL [Mass/Vol] 94 mg/dL 0-[address] [facility] Comment on above: LDL ATP III CLASSIFI CATIONLDL less than 100 mg/dL OptimalLDL 100-129 mg/dL Near or above optimalLDL 130-159 mg/dL Borderline highLDL 160-189 mg/dL HighLDL greater than 189 mg/dL Very high Cholesterol in VLDL Calc [Ma ss/Vol]Ordered By: Julian Arechiga on 08-28-2023 Cholesterol in VLDL [Mass/Vol] 15 mg/dL [facility] Lipid Panelon 08-28-2023 LDL Cholesterol,Calculated 94 mg/dL Normal 0-100 [facility] Comment on above: Result Comment: LDL ATP III CLASSIFICATION LDL less than 100 mg/dL Optimal LDL 100-129 mg/dL Near or above optimal LDL 130-159 mg/dL Borderline high LDL 160-189 mg/dL High LDL greater than 189 mg/dL Very high Performed By: #### C UChristopher, ADDONUAPLUS #### [facility] [address] Triglyceride w/Reflex 79 mg/dL Normal 0-149 [facility] Comment on above: Result Comment: TRIG ATP III CLASSIFICATION TRIG less than 150 mg/dL Normal TRIG 150-199 mg/dL Borderline high TRIG 200-500 mg/dL High TRIG greater than 500 mg/dL Very high Standard traceable to the Center for Disease Conrtrol and Prevention (CDC) test method. Performed By: #### C ULAY WhitePLUS #### [facility] [address] [place] [id number] [facility] VLDL CHOLESTEROL 15 mg/dL Normal [facility] Comment on above: Performed By: #### C LAY BAPLUS #### [facility] [address] [place] [id number] [facility] Serum or plasma high density lipoprotein (HDL) cholesterol measurementOrdered By: Julian Arechiga on 08-28-2023 Cholesterol in HDL [Mass/Vol] 41 mg/dL Normal 23-[address] [facility] Comment on above: HDL CHOL ATP-III CLA SSIFICATION Cardiovascular RiskHDL > or equal to 60 mg/dL LOWHDL < 40 mg/dL HIGH Result Comment: HDL CHOL ATP-III CLASSIFICATION Cardiovascular Risk HDL > or equal to 60 mg/dL LOW HDL < 40 mg/dL HIGH Performed By: #### C UU, ADDONUAPLUS #### [facility] [address] Serum or plasma total choles terol/high density lipoprotein (HDL) cholesterol mass ratOrdered By: Julian Arechiga on 08-28-2023 Cholesterol.total/Chol esterol in HDL [Mass ratio] 3.7 {ratio} Normal <5.[address] [facility] Comment on above: Performed By: #### C UU, ADDONUAPLUS #### [facility] [address] Thyroid Stim Hormone w/Rflxo n 08-28-2023 Thyroid Stim Hormone w/Rflx 2.83 u[iU]/mL Normal 0.45-5.33 [facility] Comment on above: Performed By: #### C UU, ADDONUAPLUS #### [facility] [address] [place] [address] Thyrotropin [Units/volume] i n Serum or PlasmaOrdered By: Julian Arechiga on 08-28-2023 TSH Qn 2.83 m[IU]/L 0.45-5.[address] [facility] Triglyceride [Mass/volume] i n Serum or PlasmaOrdered By: Julian Arechiga on 08-28-2023 Triglyceride [Mass/Vol] 79 mg/dL 0-[address] [facility] Comment on above: TRIG ATP III CLASSIF ICATIONTRIG less than 150 mg/dL NormalTRIG 150-199 mg/dL Borderline highTRIG 200-500 mg/dL High TRIG greater than 500 mg/dL Very highStandard traceable to the Center for Disease Conrtrol and Prevention (CDC) test method. Vitamin D 25 Hydroxy Totalon 08-28-2023 Vitamin D 25 Hydroxy Total 47.6 ng/mL Normal 30-100 [facility] Comment on above: Result Comment: GAGE MIN D STATUS 25(OH)VITAMIN D RANGE (ng/mL) Deficient <20 Insufficient 20 to <30 Sufficient 30 to 100 Reference: Mahesh MF,Catalina NC, Omega GODDARD, et al. Evaluation,treatment, and prevention of vitamin D deficiency; an Endocrine Society clinical practice guideline. JCEM. 2010; 96(7):1911-. PERFORMED BY: [facility] [address] [place] [address] PATHOLOGIST BRAKE OPERATOR HEAVY DUTY CORIE SILVA M.D. Performed By: #### LOBO QUIÑONEZ #### [facility] [address] Vitamin D+Metabolites [Mass/ volume] in Serum or PlasmaOrdered By: Julian Arechiga on 08-28-2023 Vitamin D+Metabolites [Mass/Vol] 47.6 ng/mL 30-[address] [facility] Comment on above: VITAMIN D STATUS 25( [place])VITAMIN D RANGE (ng/mL) Deficient <20 Insufficient 20 to <30Sufficient 30 to 100Reference: Mahesh MF,Catalina MCNEAL, Omega GODDARD, et al. Evaluation,treatment, and prevention of vitamin D deficiency; an Endocrine Society clinical practice guideline. JCEM. 2010; 96(7):1911-. CBC w/ Auto Diffon 4 Basophils/100 WBC (Bld) 0.8 % Normal 0.0-2.0 [facility] Comment on above: Performed By: #### 4 [id number], [id number] #### [facility] [address] [place] [address] Basophils/Leukocytes Auto (Bld) [Pure # fraction] 0.1 E9/L Normal 0.0-0.2 [facility] Comment on above: Performed By: #### 4 [id number], [id number] #### [facility] [address] [place] [address] Eosinophils (Bld) [#/Vol] 0.2 E9/L Normal 0.0-0.5 [facility] Comment on above: Performed By: #### 4 [id number], [id number] #### [facility] [address] [place] [address] Eosinophils/100 WBC (Bld) 3.2 % Normal 0.0-8.0 [facility] Comment on above: Performed By: #### 4 [id number], [id number] #### [facility] [address] [place] [address] Erythrocyte distribution width (RBC) [Ratio] 13.2 % Normal 10.9-14.2 [facility] Comment on above: Performed By: #### 4 [id number] #### [facility] [address] [place] [address] Hematocrit (Bld) [Volume fraction] 40.9 % Normal 34.0-46.0 [facility] Comment on above: Performed By: #### 4 [id number], [id number] #### [facility] [address] [place] [address] Hemoglobin (Bld) [Mass/Vol] 13.2 g/dL Normal 12.0-16.0 [facility] Comment on above: Performed By: #### 4 [id number], [id number] #### [facility] [address] [place] [address] Lymphocytes (Bld) [#/Vol] 1.3 E9/L Normal 1.0-4.0 [facility] Comment on above: Performed By: #### 4 [id number], [id number] #### [facility] [address] [place] [address] Lymphocytes/100 WBC (Bld) 19.7 % Normal 14.0-50.0 [facility] Comment on above: Performed By: #### 4 [id number], [id number] #### [facility] [address] [place] [address] MCH (RBC) [Entitic mass] 28.3 pg Normal 27.0-34.0 [facility] Comment on above: Performed By: #### 4 [id number], [id number] #### [facility] [address] [place] [address] MCHC (RBC) [Mass/Vol] 32.3 g/dL Normal 31.4-36.0 [facility] Comment on above: Performed By: #### 4 [id number], [id number] #### [facility] [address] [place] [address] MCV (RBC) [Entitic vol] 87.8 fL Normal 80.0-100.0 [facility] Comment on above: Performed By: #### 4 [id number], [id number] #### [facility] [address] [place] [address] Monocytes (Bld) [#/Vol] 0.6 E9/L Normal 0.2-1.0 [facility] Comment on above: Performed By: #### 4 [id number], [id number] #### [facility] [address] [place] [address] Neutrophils (Bld) [#/Vol] 4.4 E9/L Normal 2.0-7.5 [facility] Comment on above: Performed By: #### 4 [id number], [id number] #### [facility] [address] [place] [address] Neutrophils/100 WBC (Bld) 67.4 % Normal 36.0-75.0 [facility] Comment on above: Performed By: #### 4 [id number], [id number] #### [facility] [address] [place] [address] Platelet 236.0 E9/L Normal 150.0-500. 0 [facility] Comment on above: Performed By: #### 4 [id number], [id number] #### [facility] [address] [place] [address] Platelet mean volume (Bld) [Entitic vol] 7.3 fL Normal 6.4-10.8 [facility] Comment on above: Performed By: #### 4 [id number], [id number] #### [facility] [address] [place] [address] RBC (Bld) [#/Vol] 4.7 E12/L Normal 4.3-5.9 [facility] Comment on above: Performed By: #### 4 [id number], [id number] #### [facility] [address] [place] [address] WBC corrected for nucl RBC Auto (Bld) [#/Vol] 6.6 E9/L Normal 4.0-11.0 [facility] Comment on above: Performed By: #### 4 [id number], [id number] #### [facility] [address] [place] [address] CHEMISTRYOrdered By: SYSTEM SYSTEM on 08-27-2023 Albumin [...] Result called to Mary Lou (ER) by at 1018 Interpretive Data: N egative Cutoff: [...] 08-27-2023 Albumin [Mass/Vol] 4.1 g/dL Normal 3.3-5.0 [facility] Comment on above: Performed By: #### 4 [id number], [id number] #### [facility] [address] [place], [place] [id number] Albumin/Globulin (S) [Mass conc ratio] 1.4 Normal 1.1-2.2 [facility] Comment on above: Performed By: #### 4 [id number], [id number] #### [facility] [address] [place] [address] ALP [Catalytic activity/Vol] 77 Int._Unit/L Normal 21-98 [facility] Comment on above: Performed By: #### 4 [id number], [id number] #### [facility] [address] [place] [address] ALT No additional P-5'-P [Catalytic activity/Vol] 10 Int._Unit/L Normal 6-46 [facility] Comment on above: Performed By: #### 4 [id number], [id number] #### [facility] [address] [place] [address] Anion gap [Moles/Vol] 11 mmol/L Normal 6-16 [facility] Comment on above: Performed By: #### 4 [id number], [id number] #### [facility] [address] [place] [address] AST [Catalytic activity/Vol] 23 Int._Unit/L Normal 5-43 [facility] Comment on above: Performed By: #### 4 [id number], [id number] #### [facility] [address] [place] [address] Bilirubin [Mass/Vol] 1.0 mg/dL Normal 0.0-1.1 [facility] Comment on above: Performed By: #### 4 [id number], [id number] #### [facility] [address] [place] [address] Calcium [Mass/Vol] 9.2 mg/dL Normal 8.9-11.1 [facility] Comment on above: Performed By: #### 4 [id number], [id number] #### [facility] [address] [place] [address] Chloride [Moles/Vol] 104 mmol/L Normal 101-111 [facility] Comment on above: Performed By: #### 4 [id number], [id number] #### [facility] [address] [place] [address] CO2 [Moles/Vol] 28 mmol/L Normal 21-31 [facility] Comment on above: Performed By: #### 4 [id number], [id number] #### [facility] [address] [place] [address] Creatinine [Mass/Vol] 1.1 mg/dL Normal 0.5-1.3 [facility] Comment on above: Performed By: #### 4 [id number], [id number] #### [facility] [address] [place] [address] Globulin (S) [Mass/Vol] 3.0 g/dL Normal 1.4-4.0 [facility] Comment on above: Performed By: #### 4 [id number] #### [facility] [address] [place] [address] Glucose [Mass/Vol] 116 mg/dL Normal 55-199 [facility] Comment on above: Performed By: #### 4 [id number], [id number] #### [facility] [address] [place] [address] Potassium [Moles/Vol] 3.4 mmol/L Low 3.5-5.3 [facility] Comment on above: Performed By: #### 4 [id number], [id number] #### [facility] [address] [place] [address] Protein [Mass/Vol] 7.1 g/dL Normal 6.0-7.8 [facility] Comment on above: Performed By: #### 4 [id number], [id number] #### [facility] [address] [place] [address] Sodium [Moles/Vol] 140 mmol/L Normal 135-145 [facility] Comment on above: Performed By: #### 4 [id number], [id number] #### [facility] [address] [place] [address] Urea nitrogen [Mass/Vol] 10 mg/dL Normal 5-21 [facility] Comment on above: Performed By: #### 4 [id number], [id number] #### [facility] [address] [place] [address] Urea nitrogen/Creatinine [Mass ratio] 9 No Units Low 10-20 [facility] Comment on above: Performed By: #### 4 [id number], [id number] #### [facility] [address] [place] [address] Consent for Treatmenton 04-0 Consent for Treatment [id number] Normal [facility] ED Clinical Summaryon 2023 ED Clinical Summary (Inserted Image. Sara ble to display) [address] [address] ED Clinical Summary Person Information Name: MAEGAN DYE/[place] Age: 73 Years : 1950 Sex: Female Language: Dutch PCP: AZUL GORMAN CNP Marital Status: Phone: [phone] Visit Id: Visit Reason: Psychiatric screening exam; PSYCH EVAL Speciality: Acuity: 2 Enc Type: Emergency Med Service: Emergency Arrival: 08/27/2023 08:02:54 Discharge: 08/27/2023 12:13:20 LOS: 000 04:11 Checkin: 08/27/2023 08:02:54 Checkout: 08/27/2023 12:13:20 Dispo Type: [facility] EVENTS: Event Name Event Status Request Date/Time Start Date/Time Complete Date/Time Arrive Complete 08/27/2023 08:02:54 08/27/2023 08:02:54 08/27/2023 08:02:54 Document Home Meds Request 08/27/2023 08:02:54 Triage Complete 08/27/2023 08:02:54 08/27/2023 08:09:42 08/27/2023 08:09:42 Bed Assign Complete 08/27/2023 08:04:08 08/27/2023 08:04:08 08/27/2023 08:04:08 Dr Exam Complete 08/27/2023 08:04:08 08/27/2023 08:08:59 08/27/2023 08:08:59 RN Exam Complete 08/27/2023 08:04:09 08/27/2023 09:07:57 08/27/2023 09:07:57 Registration Complete 08/27/2023 08:08:59 08/27/2023 09:34:13 08/27/2023 09:34:13 Dr Exam Complete 08/27/2023 08:09:27 08/27/2023 08:09:27 08/27/2023 08:09:27 Isolation Screening Request 08/27/2023 08:09:43 Consult Request 08/27/2023 08:26:04 EKG Complete 08/27/2023 08:26:04 08/27/2023 09:18:43 Pending Labs Complete 08/27/2023 08:26:04 08/27/2023 08:53:15 08/27/2023 10:19:13 Lab Complete 08/27/2023 08:26:04 08/27/2023 10:19:13 Urine Collect Complete 08/27/2023 08:26:04 08/27/2023 10:19:13 Patient Care Request 08/27/2023 08:26:04 Pending Labs Complete 08/27/2023 08:57:45 08/27/2023 08:57:45 08/27/2023 09:15:53 Lab Complete 08/27/2023 08:57:45 08/27/2023 08:57:45 08/27/2023 09:15:53 Reg Complete Request 08/27/2023 09:34:13 Reg Bed Request Complete 08/27/2023 09:34:13 08/27/2023 09:34:13 08/27/2023 09:34:13 Patient Care Request 08/27/2023 10:39:58 Transfer Complete 08/27/2023 10:39:58 08/27/2023 12:13:35 08/27/2023 12:13:35 Discharge Complete 08/27/2023 12:13:35 08/27/2023 12:13:35 08/27/2023 12:13:35 ADDRESS: [facility] [address] [facility] [id number] PHYS DOC NOTES: MEDICAL INFORMATION: Prescriptions Given: Medications to Continue with No Changes Other Medications amlodipine (amLODIPine 5 mg Tab) 1 Tablets By Mouth every day. TAKE 1 TABLET BY MOUTH EVERY DAY. celecoxib (celecoxib 200 mg Cap) TAKE 1 CAPSULE BY MOUTH EVERY DAY. cimetidine (cimetidine 300 mg oral tablet) 2 Tablets By Mouth 3 times a day. Refills: 5. citalopram (citalopram 20 mg Tab) TAKE 1 TABLET BY MOUTH EVERY DAY. clonazepam (clonazepam 1 mg Tab) TAKE 1 TABLET BY MOUTH THREE TIMES A DAY NEEDED FOR ANXIETY. cyanocobalamin (cyanocobalamin 1000 mcg/mL Inj) 1 Milliliter Intramuscular once a month. Refills: 1. docusate (Colace 100 mg Cap) 1 Capsules By Mouth 2 times a day. Hold for diarrhea. Refills: 0. Ensure (Ensure Vanilla) Drink 1 bottle (8 fl. oz.) BID. Refills: 5. ferrous sulfate (ferrous sulfate 325 mg Tab) 1 Tablets By Mouth 3 times a day. Refills: 0. fluticasone nasal (fluticasone 0.05 mg/inh Nasal [place]) 2 Sprays Nasal Inhalation every day. each nostril. Refills: 5. lisinopril (lisinopril 20 mg Tab) 1 Tablets By Mouth every day. Refills: 1. Misc Prescription (Straight Catheters & Supplies) Use daily, as directed.. Refills: 5. Misc Prescription (walking boot) right foot knee high walking Size small boot dx m21.969, m14.679 Fax to [facility]. Refills: 0. multivitamin with minerals (Therapeutic Multiple Vitamins with Minerals Tab) By Mouth every day. mupirocin topical (mupirocin Top 2% Oint) 1 Application Topical 3 times a day. Refills: 0. ondansetron (ondansetron [...] bedtime) as needed for constipation. Refills: 1. trazodone (traZODONE 150 mg Tab) 1 Tablets By Mouth once a day (at bedtime). Do not give with clonazepam. Refills: 3. PATIENT EDUCATION INFORMATION: Instructions: Follow up: DIAGNOSIS: Psychiatric problem Normal [facility] ED Note-Physicianon 08-27-19 ED Note-Physician Basic Information Time Seen: Alvaro BYRD, Rodrigue Cruz. 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 was at [facility] friday for psych eval and urinary issues and talked about [facility] placement then. pt denies any urinary issues today, SI or HI. pt A&Ox4 History of Present Illness 73-year-old female reports to the emergency department with chief complaint of a psych evaluation. She reports that she was sent here for a psych eval and possible urinary issues. Reports that her son wants her placed in the [facility], but that she does not want to go. She states that her and her son had argument, and she called the manager of revenue. He reports there are people in her house that she does not want there. Patient reports that her son is a drug, and has parties in her house. He has people over and even last night had a 'bum' over that slept in a spare bed in her room. She states that she was scared, went to the bathroom, and said she was using a unit tonight or in the morning, so she called the manager of revenue. She states that currently being treated with doxycycline for UTI. Denies any fevers or chills. Denies any symptoms currently. Review of Systems A 10 point review of systems is negative except as noted above. Medical and Surgical History: Reviewed and noted Social history: Lives at home Family History: Reviewed. Tobacco: denies Physical Exam Vitals & Measurements T: 36.6 ?C(Oral) HR: 70(Peripheral) RR: 18 BP: 128/67 SpO2: 97% HT: 162 cm WT: 67 kg BMI: 25.53 General: The patient appears well and in no apparent distress. Patient is resting comfortably on bed. Skin: Warm, dry, no pallor noted. Head: Normocephalic, atraumatic Neck: No JVD Eye: PERRLA, EOMI ENT: Moist mucus membranes Cardiovascular: Regular rate normal peripheral perfusion Respiratory: No respiratory distress no accessory muscle use no obvious audible wheezing Chest Wall: no deformity Musculoskeletal: normal ROM, no deformity, no swelling GI: No obvious distention soft nontender nondistended no guarding rebounding or rigidity Neurological: A&Ox4. moves all extremities equal strength and symmetry Psychiatric: Cooperative and appropriate Medical Decision Making MEDICAL DECISION MAKING Number and Complexity of Problems Differential Diagnosis: [] [facility] Data External documents reviewed: [] My EKG interpretation: reviewed My CT interpretation: [] My X-ray interpretation: [] My Ultrasound interpretation: [] Decision rules/scores evaluated: [] Discussed with: [] Treatment and Disposition ED Course: 73-year-old female reports to the emergency department with chief complaint of possible urinary issues, and psychiatric problems per her son. States that she thinks that people are at her house. She reports that son does bring home friends, and that they are in her house. Conflicting stories, as well as the patient's probable history of dementia, let us to lead to a psych evaluation. She is alert and oriented x 4. No acute distress. No other focal neurological defects. Due to concerns, we did do a psych workup. Lab work reviewed and noted. No acute changes seen. No signs of UTI. Discussed with the patient. Due to concerns of, we did have [facility] come talk to the patient. He decided on voluntary admission to [facility]. Dr. Arechiga with excepting physician. Patient will be transferred to [address] 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 Discharge Prescription List Prescriptions No active prescription medications Follow-up No qualifying data available Attestation Patient seen and evaluated by the physician assistant executive housekeeper. Attending physician was present in the emergency department and supervised care. This visit was performed by both the physician and an APC. I performed all aspects of the MDM as documented. This report was transcribed using voice recognition software. Every effort was made to ensure accuracy, however, inadvertently computerized senior licensing manager mistakes may be present. Appropriate healthcare PPE [...] Interpretation) My (EKG/X-Ray/US/CT as applicable) interpretation as above (more content not included)... Normal [facility] Comment on above: Result Comment: Elec tronically Signed By: Rodrigue John PA-C\.br\Date and Time Signed: 08/27/23 11:50 EDT\.br\Electronically Co-Signed By: Johny Willson DO.br\Date and Time Co-Signed: 08/27/23 13:24 EDT ED Patient Education Noteon 08-27-2023 ED Patient Education Note Normal [facility] ED Patient Summaryon 024 ED Patient Summary (Inserted Image. 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 It is important that you follow up with a doctor, nurse practitioner, or physician?s assistant executive housekeeper for ongoing care. If your symptoms become [...] opioids can be used to help relieve vkuadqqo-uk-knctpf pain and are often prescribed following a [...] be struggling with addiction, tell your health health care aide and ask for guidance or call SAMHSA?S National Helpline at 6-406-995-HELP. v Source: [place] Department of Health and Human Services/Center for Disease Control & Prevention [facility] Medications Given: Medication Dose Route No medications found (more content not included)... Normal [facility] Ethanolon 08-27-2023 Ethanol Lvl <10 Normal <=11 [facility] Comment on above: Performed By: #### 2 [id number] #### [facility] [address] [place] [address] HEMATOLOGYOrdered By: SYSTEM SYSTEM on 08-27-2023 Basophils/100 [...] Remisol Heme Outside Recordson 08-27-2023 Outside Records [id number] Normal [facility] Transfer Documentson 024 Transfer Documents [id number] Normal [facility] U Drug Screenon 08-27-2023 Amphetamines Screen method >1000 ng/mL Ql (U) Negative Normal NEGATIVE [facility] Comment on above: Result Comment: Nega tive Cutoff: <1000 ng/mL Performed By: #### 2 [id number] #### [facility] [address] [place] [address] Barbiturates Screen Ql (U) Negative Normal NEGATIVE [facility] Comment on above: Result Comment: Nega tive Cutoff: <200 ng/mL Performed By: #### 2 [id number] #### [facility] [address] [place] [address] Benzodiazepines Ql (U) Negative Normal NEGATIVE [facility] Comment on above: Result Comment: Nega tive Cutoff: <200 ng/mL Performed By: #### 2 [id number] #### [facility] [address] [place] [address] Cannabinoids Screen Ql (U) Negative Normal NEGATIVE [facility] Comment on above: Result Comment: Nega tive Cutoff: <50 ng/mL Performed By: #### 2 [id number] #### [facility] [address] [place] [address] Cocaine Ql (U) Negative Normal NEGATIVE [facility] Comment on above: Result Comment: Nega tive Cutoff: <300 ng/mL Performed By: #### 2 [id number] #### [facility] [address] [place] [address] Opiates Screen Ql (U) Positive Abnormal NEGATIVE Fis [facility] Comment on above: Result Comment: Resu lt Verified by Repeat Analysis Unconfirmed by an Alternate Method No Confirmation Requested by Physician Result called to Mary Lou (ER) by SW at 1018 Negative Cutoff: <300 ng/mL Performed By: #### 2 [id number] #### [facility] [address] [place] [address] Phencyclidine Screen method >25 ng/mL Ql (U) Negative Normal NEGATIVE [facility] Comment on above: Result Comment: Nega tive Cutoff: <25 ng/mL These drug screen results are to be used for medical (i.e., treatment) purposes only. Unconfirmed drug screening results must not be used for non-medical purposes (e.g., employment testing, legal testing). Performed By: #### 2 [id number] #### [facility] [address] [place] [address] U Fentanyl Negative Normal NEGATIVE [facility] Comment on above: Result Comment: Nega tive Cutoff: <5 ng/mL These drug screen results are to be used for medical (i.e., treatment) purposes only. Unconfirmed drug screening results must not be used for non-medical purposes (e.g., employment testing, legal testing). Performed By: #### 2 [id number] #### [facility] [address] [place] [address] UA with Cult Rflxon 08-27-19 24 Color (U) Light-Yellow Normal Yellow [facility] Comment on above: Result Comment: Micr oscopic readings are only performed on those samples that meet specific criteria set forth by [facility]. Performed By: #### 2 [id number], [id number] #### [facility] [address] [place] [address] Glucose (U) [Mass/Vol] Negative Normal Negative [facility] Comment on above: Performed By: #### 2 [id number], [id number] #### [facility] [address] [place] [address] Ketones Ql (U) Negative Normal Negative [facility] Comment on above: Performed By: #### 2 [id number], [id number] #### [facility] [address] [place] [address] UA Blood Negative Normal Negative [facility] Comment on above: Performed By: #### 2 [id number], [id number] #### [facility] [address] [place] [address] UA Clarity Clear Normal Clear [facility] Comment on above: Performed By: #### 2 [id number], [id number] #### [facility] [address] [place] [address] UA Leuk Est Negative Normal Negative [facility] Comment on above: Performed By: #### 2 [id number], [id number] #### [facility] [address] [place] [address] UA Nitrite Negative Normal Negative [facility] Comment on above: Performed By: #### 2 [id number], [id number] #### [facility] [address] [place] [address] UA pH 6.0 Invalid Interpretation Code 5.0-9.0 [facility] Comment on above: Performed By: #### 2 [id number], [id number] #### [facility] [address] [place] [address] UA Protein Negative Normal Negative [facility] Comment on above: Performed By: #### 2 [id number], [id number] #### [facility] [address] [place] [address] UA Spec Grav 1.014 Invalid Interpretation Code 1.005-1.03 0 [facility] Comment on above: Performed By: #### 2 [id number], [id number] #### [facility] [address] [place] [address] UA Urobilinogen Negative Normal Negative [facility] Comment on above: Performed By: #### 2 [id number], [id number] #### [facility] [address] [place] [address] Urobilinogen (U) [Mass/Vol] Negative Normal Negative [facility] Comment on above: Performed By: #### 2 [id number], [id number] #### [facility] [address] [place] [address] UA Spec Desc Catheter Normal [facility] Comment on above: Performed By: #### 2 [id number], [id number] #### [facility] [address] [place] [address] URINALYSISOrdered By: SYSTEM SYSTEM on 08-27-2023 Color (U) Light-Yellow 3 (08/27/23 8:49 AM) Normal Yellow [facility] UA Auto SS Comment on above: Interpretive Data: M icroscopic readings are only performed on those samples that meet specific criteria set forth by [facility]. Glucose (U) [Mass/Vol] Negative Normal Negat ivemg /dL [facility] UA Auto SS Ketones Ql (U) Negative Normal Negativemg /dL [facility] UA Auto SS UA Blood Negative Normal Negativemg /dL [facility] UA Auto SS UA Clarity Clear (08/27/23 8:49 AM) Normal Clear FT UA Auto SS UA Leuk Est Negative Normal NegativeLe u/uL FT UA Auto SS UA Nitrite Negative Normal Negativemg /dL [facility] UA Auto SS UA pH 6.0 *NA* (08/27/23 8:49 AM) Invalid Interpretation Code 5.0 - 9.0 FT UA Auto SS UA Protein Negative Normal Negativemg /dL FT UA Auto SS UA Spec Grav 1.014 *NA* (08/27/23 8:49 AM) Invalid Interpretation Code 1.005 - 1.030 FT UA Auto SS UA Urobilinogen Negative Normal Negativemg /dL [facility] UA Auto SS Urobilinogen (U) [Mass/Vol] Negative Normal Negativemg /dL [facility] UA Auto SS URINALYSISOrdered By: Rodrigue ferrara on 08-27-2023 UA Spec Desc Catheter (08/27/23 8:49 AM) Normal [facility] UA Auto SS Work Phone: eGFRon 08-27-2023 eGFR 52 mL/min/1.73 m2 Low >=59 [facility] Comment on above: Order Comment: Order added by Discern Expert. Performed By: #### 4 [id number], [id number] #### [facility] [address] [place] [address] PT - Orderson 08-26-2023 PT - Orders [id number] Normal [facility] Alanine aminotransferase [En zymatic activity/volume] in Serum or PlasmaOrdered By: Senthil Torres on 08-22-2023 ALT [Catalytic activity/Vol] 8 U/L Normal 7-[address] [facility] Comment on above: Performed By: #### C UU, ADDONUAPLUS #### [facility] [address] [place] [address] [place] Albumin [Mass/volume] in Ser um or Plasma by Bromocresol green (BCG) dye binding methoOrdered By: Senthil Torres on 08-22-2023 Albumin BCG dye [Mass/Vol] 4.2 g/dL 3.5-5.[address] [facility] Alkaline phosphatase [Enzyma tic activity/volume] in Serum or PlasmaOrdered By: Senthil Torres on 08-22-2023 ALP [Catalytic activity/Vol] 82 U/L Normal 34-[address] [facility] Comment on above: Performed By: #### C UU, ADDONUAPLUS #### [facility] [address] [place] [address] [place] Aspartate aminotransferase [ Enzymatic activity/volume] in Serum or PlasmaOrdered By: Senthil Torres on 08-22-2023 AST [Catalytic activity/Vol] 19 U/L Normal 13-[address] [facility] Comment on above: Performed By: #### C UU, ADDONUAPLUS #### [address] Automated basophil %Ordered By: Senthil Torres on 08-22-2023 Basophils/100 WBC (Bld) 0.7 % Normal . [facility] Comment on above: Performed By: #### C UU, ADDONUAPLUS #### [address] Automated basophil countOrde red By: Senthil Torres on 08-22-2023 Basophils (Bld) [#/Vol] 0.1 10*3/uL Normal 0.0-0.[address] [facility] Comment on above: Result Comment: PERF ORMED BY: [place] [address] PATHOLOGIST BRAKE OPERATOR HEAVY DUTY CORIE SILVA M.D. Performed By: #### C UChristopher, ADDONUAPLUS #### [address] Automated blood monocyte cou ntOrdered By: Senthil Torres on 08-22-2023 Monocytes (Bld) [#/Vol] 0.6 10*3/uL Normal 0.0-0.[address] [facility] Comment on above: Performed By: #### C UKRISTINE WhiteONAUSTINPLUS #### [address] Automated eosinophil %Ordere d By: Senthil Torres on 08-22-2023 Eosinophils/100 WBC (Bld) 2.9 % Normal . [facility] Comment on above: Performed By: #### C UChristopher ADDONUAPLUS #### [address] Automated eosinophil countOr dered By: Senthil Torres on 08-22-2023 Eosinophils (Bld) [#/Vol] 0.2 10*3/uL Normal 0.0-0.[address] [facility] Comment on above: Performed By: #### C UU, ADDONUAPLUS #### [address] Automated erythrocytes count in urine sediment (number/area)Ordered By: PROVIDER TEMPalmer on 08-22-2023 RBC Auto (Urine sed) [#/Area] 1-2 [HPF] 0-[address] [facility] Automated leukocytes count i n urine sediment (number/area)Ordered By: PROVIDER TEMP on 08-22-2023 WBC Auto (Urine sed) [#/Area] 20-49 [HPF] 0-[address] [facility] Automated monocyte %Ordered By: Senthil Torres on 08-22-2023 Monocytes/100 WBC (Bld) 8.2 % Normal . [facility] Comment on above: Performed By: #### C UU, ADDONUAPLUS #### [facility] [address] [place] [address] Automated neutrophil %Ordere d By: Senthil Torres on 08-22-2023 Neutrophils/100 WBC (Bld) 66.3 % Normal . [facility] Comment on above: Performed By: #### C UU, ADDONUAPLUS #### [facility] [address] [place] [address] Automated urine color determ inationOrdered By: PROVIDER TEMP on 08-22-2023 Color (U) Yellow Normal Yellow [facility] Comment on above: Order Comment: Name Collection Type:: Clean-Voided Midstream Performed By: #### C UU, ADDONUAPLUS #### [address] Bilirubin Test strip Ql (U)O rdered By: PROVIDER TEMP on 08-22-2023 Bilirubin Ql (U) Negative Negative [facility] Bilirubin.total [Mass/volume ] in Serum or PlasmaOrdered By: Senthil Torres on 08-22-2023 Bilirubin [Mass/Vol] 0.8 mg/dL Normal 0.3-1.0 [facility] Comment on above: Performed By: #### C UU, ADDONUAPLUS #### [facility] [address] [place] [address] CT head/brain wo conon 08-21 CT head/brain wo con [facility] [address] [place] [address] CT Scan Report Signed Patient: Maegan Dye MR#: [id number] : 1950 Acct:[id number] Age/Sex: 73 / F ADM Date: 08/22/23 Loc: ER Room: Type: [facility] ER Attending Dr: Copies to: Senthil Torres [...] normal limits ATROPHY: None BRAIN PARENCHYMA: Adequate anthony-white matter differentiation identified. HEMORRHAGE: None HERNIATION: No mass effect or herniation INFARCTION: No recent vascular distribution infarction is seen. EXTRA-AXIAL FLUID COLLECTIONS None MIDBRAIN: Unremarkable ABI: Unremarkable MEDULLA: Unremarkable SINUSES: Unremarkable ORBITS: Grossly unremarkable MASTOIDS: Unremarkable BONY STRUCTURES Intact ADDITIONAL FINDINGS: Atherosclerosis of carotid siphons. CT/CT head/brain wo con IMPRESSION: No acute findings. Impression dictated by: Timo Martinez M.D.08/22/2023 1:57 PM Dictation Location: [place] [address] Transcribed By: [facility] 08/22/23 1357 Dictated By: Timo Martinez DO 08/22/23 1352 Signed By: 08/22/23 1357 Normal [facility] Calcium [Mass/volume] in Ser um or PlasmaOrdered By: Senthil Torres on 08-22-2023 Calcium [Mass/Vol] 9.3 mg/dL Normal 8.6-10.3 [facility] Comment on above: Performed By: #### LAY QUIÑONEZPLUS #### [address] Carbon dioxide, total [Moles /volume] in Serum or PlasmaOrdered By: Senthil Torres on 08-22-2023 CO2 [Moles/Vol] 31.0 mmol/L Normal 21.0-31.0 [facility] Comment on above: Performed By: #### KRISTINE QUIÑONEZONUAPLUS #### [address] Chloride [Moles/volume] in S clarisa or PlasmaOrdered By: Senthil Torres on 08-22-2023 Chloride [Moles/Vol] 102 mmol/L Normal 98-107 [facility] Comment on above: Performed By: #### C UU, ADDONUAPLUS #### [address] Complete Blood Count Auto Di ffon 08-22-2023 Mean Corpuscular HGB Conc 33.0 g/dL Normal 32.0-35.0 [facility] Comment on above: Performed By: #### C UU, ADDONUAPLUS #### [address] Monocytes/100 WBC (Bld) 16.36 % Normal 0.00-20.00 [facility] Comment on above: Performed By: #### C UU, ADDONUAPLUS #### [address] NRBC% 0.1 /100{WBC} Normal 0-0.5 [facility] Comment on above: Performed By: #### C UU, ADDONUAPLUS #### [address] Comprehensive Metabolic Pane isauro 08-22-2023 Albumin [Mass/Vol] 4.2 g/dL Normal 3.5-5.7 [facility] Comment on above: Performed By: #### C UU, ADDONUAPLUS #### [address] Creatinine Clr Calc Pharmacy 33.43 Normal [facility] Comment on above: Result Comment: PERF ORMED BY: [place] [address] PATHOLOGIST BRAKE OPERATOR HEAVY DUTY CORIE SILVA M.D. Performed By: #### C UU, ADDONUAPLUS #### [facility] [address] [place] [address] [place] GFR/1.73 sq M.predicted MDRD (S/P/Bld) [Vol rate/Area] 49.679 mL/min/{1.73_m2} Normal [facility] Comment on above: Performed By: #### C UU, ADDONUAPLUS #### [place] [address] [place] Creatine kinase [Enzymatic a ctivity/volume] in Serum or PlasmaOrdered By: Senthil Torres on 08-22-2023 CK [Catalytic activity/Vol] 117 U/L Normal 30-[address] [facility] Comment on above: Performed By: #### C UU, ADDONUAPLUS #### [place] [address] [place] Creatinine [Mass/volume] in Serum or PlasmaOrdered By: Senthil Torres on 08-22-2023 Creatinine [Mass/Vol] 1.15 mg/dL Normal 0.60-1.20 [facility] Comment on above: Performed By: #### C UU, ADDONUAPLUS #### [place] [address] [place] Dipstick and Microscopicon 0 08-22-2023 Appearance (U) Cloudy Critically abnormal Clear [facility] Comment on above: Order Comment: Name Collection Type:: Clean-Voided Midstream Performed By: #### C UU, ADDONUAPLUS #### [place] [address] [place] Bacteria,Urine None Seen Normal None Seen [facility] Comment on above: Order Comment: Name Collection Type:: Clean-Voided Midstream Performed By: #### C UU, ADDONUAPLUS #### [place] [address] [place] Bilirubin,Urine Negative Normal Negative [facility] Comment on above: Order Comment: Name Collection Type:: Clean-Voided Midstream Performed By: #### C UU, ADDONUAPLUS #### [place] [address] [place] Glucose Ql (U) Normal Normal Normal [facility] Comment on above: Order Comment: Name Collection Type:: Clean-Voided Midstream Performed By: #### C UU, ADDONUAPLUS #### [address] Hyaline Casts,Urine 0-8 Normal 0-8 [facility] Comment on above: Order Comment: Name Collection Type:: Clean-Voided Midstream Performed By: #### C UU, ADDONUAPLUS #### [address] Ketones Ql (U) Negative Normal Negative [facility] Comment on above: Order Comment: Name Collection Type:: Clean-Voided Midstream Performed By: #### C UU, ADDONUAPLUS #### [address] Leukocyte esterase Test strip Ql (U) 4+ High Negative [facility] Comment on above: Order Comment: Name Collection Type:: Clean-Voided Midstream Performed By: #### C UU, ADDONUAPLUS #### [address] Nitrite,Urine Negative Normal Negative [facility] Comment on above: Order Comment: Name Collection Type:: Clean-Voided Midstream Performed By: #### C UU, ADDONUAPLUS #### [address] Occult Blood,Urine Negative Normal Negative [facility] Comment on above: Order Comment: Name Collection Type:: Clean-Voided Midstream Result Comment: PERF ORMED BY: [place] [address] PATHOLOGIST BRAKE OPERATOR HEAVY DUTY CORIE SILVA M.D. Performed By: #### C UU, ADDONUAPLUS #### [address] Protein,Urine Negative Normal Negative [facility] Comment on above: Order Comment: Name Collection Type:: Clean-Voided Midstream Performed By: #### C UU, ADDONUAPLUS #### [address] RBC,Urine 1-2 Normal 0-4 [facility] Comment on above: Order Comment: Name Collection Type:: Clean-Voided Midstream Performed By: #### C UU, ADDONUAPLUS #### [address] Specificy [place],Urine 1.013 Normal 1.001-1.03 0 [facility] Comment on above: Order Comment: Name Collection Type:: Clean-Voided Midstream Performed By: #### C UU, ADDONUAPLUS #### [address] Squamous Epithelial Cell,Urine 10-19 High 0-2 [facility] Comment on above: Order Comment: Name Collection Type:: Clean-Voided Midstream Performed By: #### C UU, ADDONUAPLUS #### [address] Urobilinogen,Urine Normal Normal Normal [facility] Comment on above: Order Comment: Name Collection Type:: Clean-Voided Midstream Performed By: #### C UU, ADDONUAPLUS #### [place] [address] [place] WBC,Urine 20-49 High 0-4 [facility] Comment on above: Order Comment: Name Collection Type:: Clean-Voided Midstream Performed By: #### C UU, ADDONUAPLUS #### [address] Yeast,Urine 3+ Critically abnormal None Seen [facility] Comment on above: Order Comment: Name Collection Type:: Clean-Voided Midstream Result Comment: PERF ORMED BY: [place] [address] PATHOLOGIST BRAKE OPERATOR HEAVY DUTY CORIE SILVA M.D. Performed By: #### C UU, ADDONUAPLUS #### [address] ECG 12 lead ECGon 08-22-2023 ECG 12 lead ECG [facility] [address] [place] [address] Electrocardiograph Report Signed Patient: Maegan Dye MR#: [id number] : 1950 Acct:[id number] Age/Sex: 73 / F ADM Date: 08/22/23 Loc: ER Room: Type: [facility] ER Attending Dr: Ordering Provider: Senthil Torres [...] are no longer present Confirmed by CHANDAN ENCARNACION MD ([id number]) on 08/22/2023 3:00:00 PM Referred By: Electronically Signed By:CHANDAN ENCARNACION MD Transcribed By: MUS Signed By Chandan Encarnacion MD 08/22/23 1500 Normal [facility] Erythrocyte distribution wid th [Ratio] by Automated countOrdered By: Senthil Torres on 08-22-2023 Erythrocyte distribution width (RBC) [Ratio] 13.0 % Normal 11.9-15.[address] [facility] Comment on above: Performed By: #### C UU, ADDONUAPLUS #### [facility] [address] Erythrocytes [#/volume] in B lood by Automated countOrdered By: Senthil Torres on 08-22-2023 RBC (Bld) [#/Vol] 4.41 10*6/uL Normal 3.60-5.00 [facility] Comment on above: Performed By: #### C UU, ADDONUAPLUS #### [facility] [address] Glucose [Mass/volume] in Ser um or PlasmaOrdered By: Senthil Torres on 08-22-2023 Glucose [Mass/Vol] 104 mg/dL High 70-100 [facility] Comment on above: ADA recommended refe rence rangeRandom Glucose Reference Range is dependent on time and content of last meal. Glucose of more than 200 mg/dL in a nonstressed, ambulatory subject supports the diagnosis of Diabetes Mellitus. Result Comment: [place] om Glucose Reference Range is dependent on time and content of last meal. Glucose of more than 200 mg/dL in a nonstressed, ambulatory subject supports the diagnosis of Diabetes Mellitus. ADA recommended reference range Performed By: #### C UU, KRISTINEONAUSTINPLUS #### [facility] [address] Hematocrit [Volume Fraction] of Blood by Automated countOrdered By: Senthil Torres on 08-22-2023 Hematocrit (Bld) [Volume fraction] 38.5 % Normal 34.0-46.[address] [facility] Comment on above: Performed By: #### C UU, KRISTINEONAUSTINPLUS #### [facility] [address] [place] [address] Hemoglobin [Mass/volume] in BloodOrdered By: Senthil Torres on 08-22-2023 Hemoglobin (Bld) [Mass/Vol] 12.7 g/dL Normal 11.8-15.[address] [facility] Comment on above: Performed By: #### C JESENIA, KRISTINEONAUSTINPLUS #### [facility] [address] [place] [address] Ketones Auto test strip (U) [Mass/Vol]Ordered By: PROVIDER TEMP on 08-22-2023 Ketones (U) [Mass/Vol] Negative Negative [facility] - UrinalysisOrder ed By: PROVIDER TEMP on 08-22-2023 Hyaline casts LM Ql (Urine sed) 0-8 [LPF] 0-[address] [facility] Leukocytes [#/volume] correc kenyatta for nucleated erythrocytes in Blood by Automated counOrdered By: Senthil Torres on 08-22-2023 WBC corrected for nucl RBC Auto (Bld) [#/Vol] 6.8 10*3/uL 3.8-11.[address] [facility] Leukocytes [#/volume] in Blo od by Automated countOrdered By: Senthil Torres on 08-22-2023 WBC (Bld) [#/Vol] 6.8 10*3/uL Normal 3.8-11.6 [facility] Comment on above: Performed By: #### C UU, ADDONUAPLUS #### [address] Lymphocytes [#/volume] in Bl ood by Automated countOrdered By: Senthil Torres on 08-22-2023 Lymphocytes (Bld) [#/Vol] 1.5 10*3/uL Normal 1.00-4.[address] [facility] Comment on above: Performed By: #### C UU, ADDONUAPLUS #### [address] Lymphocytes/100 leukocytes i n Blood by Automated countOrdered By: Senthil Torres on 08-22-2023 Lymphocytes/100 WBC (Bld) 21.9 % Normal . [facility] Comment on above: Performed By: #### C UU, ADDONUAPLUS #### [address] MCH [Entitic mass] by Automa kenyatta countOrdered By: Senthil Torres on 08-22-2023 MCH (RBC) [Entitic mass] 28.8 pg Normal 24.7-34.[address] [facility] Comment on above: Performed By: #### C UU, ADDONUAPLUS #### [address] MCHC Auto (RBC) [Mass/Vol]Or dered By: Senthil Torres on 08-22-2023 MCHC (RBC) [Mass/Vol] 33.0 g/dL 32.0-35.0 [facility] MCV [Entitic volume] by Auto mated countOrdered By: Senthil Torres on 08-22-2023 MCV (RBC) [Entitic vol] 87.2 fL Normal 80-[address] [facility] Comment on above: Performed By: #### C UU, ADDONUAPLUS #### [address] Monocyte distribution width [Entitic volume] in Blood by AutomatedOrdered By: Senthil Torres on 08-22-2023 Monocyte distribution width Auto (Bld) [Entitic vol] 16.36 % 0.00-20.[address] [facility] Neutrophils [#/volume] in Bl ood by Automated countOrdered By: Senthil Torres on 08-22-2023 Neutrophils (Bld) [#/Vol] 4.5 10*3/uL Normal 1.8-7.[address] [facility] Comment on above: Performed By: #### C UChristopher, LAYPLUS #### [facility] [address] [place] [address] Nitrite Test strip Ql (U)Ord ered By: PROVIDER TEMP on 08-22-2023 Nitrite Ql (U) Negative Negative [facility] No Panel InformationOrdered By: Senthil Torres on 08-22-2023 Estimated GFR (CKD-EPI) 49.679 mL/Min [facility] Creatinine Clearance (Chem 33.[address] [facility] Nucleated erythrocytes [Pres ence] in Blood by Automated countOrdered By: Senthil Torres on 08-22-2023 Nucleated RBC Auto Ql (Bld) 0.1 /100{WBC} 0-0.[address] [facility] Platelet mean volume [Entiti c volume] in Blood by Automated countOrdered By: Senthil Torres on 08-22-2023 Platelet mean volume (Bld) [Entitic vol] 7.5 fL Normal 6.3-10.[address] [facility] Comment on above: Performed By: #### C ULAY WhitePLUS #### [facility] [address] [place] [address] [place] Platelets [#/volume] in Bloo d by Automated countOrdered By: Senthil Torres on 08-22-2023 Platelets (Bld) [#/Vol] 212 10*3/uL Normal 150-[address] [facility] Comment on above: Performed By: #### C LAY BAPLUS #### [facility] [address] [place] [address] Potassium [Moles/volume] in Serum or PlasmaOrdered By: Senthil Torres on 08-22-2023 Potassium [Moles/Vol] 3.3 mmol/L Low 3.5-5.1 [facility] Comment on above: Performed By: #### C UU, ADDONUAPLUS #### [facility] [address] [place] [address] Protein Auto test strip (U) [Mass/Vol]Ordered By: AUGUSTIN LEI on 08-22-2023 Protein (U) [Mass/Vol] Negative Negative [facility] Protein [Mass/volume] in Ser um or PlasmaOrdered By: Senthil Torres on 08-22-2023 Protein [Mass/Vol] 6.6 g/dL Normal 6.4-8.9 [facility] Comment on above: Performed By: #### C UChristopher, ADDONUAPLUS #### [address] Serum globulin measurement b y calculation (mass/volume)Ordered By: Senthil Torres on 08-22-2023 Globulin (S) [Mass/Vol] 2.4 g/dL Normal [facility] Comment on above: Performed By: #### C UU, ADDONUAPLUS #### [facility] [address] [place] [address] Serum or plasma albumin/glob ulin mass ratioOrdered By: Senthil Torres on 08-22-2023 Albumin/Globulin [Mass ratio] 1.8 {ratio} [facility] Comment on above: Performed By: #### C UChristopher, KRISTINEONUAPLUS #### [facility] [address] [place] [address] Serum or plasma anion gap de terminationOrdered By: Senthil Torres on 08-22-2023 Anion gap [Moles/Vol] 9.3 mmol/L Normal 6.0-15.0 [facility] Comment on above: Performed By: #### C UChristopher, ADDONUAPLUS #### [facility] [address] [place] [address] Sodium [Moles/volume] in Ser um or PlasmaOrdered By: Senthil Torres on 08-22-2023 Sodium [Moles/Vol] 139 mmol/L Normal 136-145 [facility] Comment on above: Performed By: #### C UULAYPLUS #### [facility] [address] [place] [address] Specific gravity Auto test s trip (U) [Rel density]Ordered By: PROVIDER TEMP on 08-22-2023 Specific gravity (U) [Rel density] 1.013 1.001-1.[address] [facility] Spermatozoa detection in uri ne sediment by light microscopyOrdered By: PROVIDER TEMP on 08-22-2023 Spermatozoa LM Ql (Urine sed) N/A [facility] Squamous epithelial cells de tection in urine sediment by light microscopyOrdered By: PROVIDER TEMP on 08-22-2023 Epithelial cells.squamous LM Ql (Urine sed) 10-19 [HPF] 0-[address] [facility] Troponin I High Sensitivityo n 08-22-2023 Troponin I High Sensitivity 3.4 pg/mL Normal 0.0-15.0 [facility] Comment on above: Result Comment: PERF ORMED BY: [place] [address] PATHOLOGIST BRAKE OPERATOR HEAVY DUTY CORIE SILVA M.D. Performed By: #### C UU, ADDONUAPLUS #### [facility] [address] [place] [address] Troponin I.cardiac [Mass/vol ume] in Serum or Plasma by Detection limit <= 0.01 ng/Ordered By: Senthil Torres on 08-22-2023 Troponin I.cardiac DL <= 0.01 ng/mL [Mass/Vol] 3.4 pg/mL 0.0-15.[address] [facility] Urea nitrogen [Mass/volume] in Serum or PlasmaOrdered By: Senthil Torres on 08-22-2023 Urea nitrogen [Mass/Vol] 10 mg/dL Normal 7-[address] [facility] Comment on above: Performed By: #### C UU, ADDONUAPLUS #### [facility] [address] [place] [address] Urine Cultureon 08-22-2023 Bacteria identified Cx Nom (U) ORGANISM: Staphylococcus epidermidis (O:STAEPI) [place] Count >100,000 Aerobic REINALDO Charge (PCMIC38) SUSCEPTIBILITY [...] RESISTANT TO ALL B-LACTAM DRUGS. PERFORMED BY: [place] [address] PATHOLOGIST BRAKE OPERATOR HEAVY DUTY CORIE SILVA M.D. Normal [facility] Comment on above: Performed By: #### C UU, ADDONUAPLUS #### [address] Urine bacteria detection by automated methodOrdered By: PROVIDER QUIQUE on 08-22-2023 Bacteria Auto Ql (U) None seen None Seen [facility] Urine clarity by refractomet ry automatedOrdered By: PROVIDER TEM on 08-22-2023 Clarity Refractometry automated (U) Cloudy Clear [facility] Urine culture routineOrdered By: PROVIDER TEMP on 08-22-2023 Bacteria identified Cx Nom (U) Staphylococcus epidermidis [facility] Urine glucose measurement by automated test strip (mass/volume)Ordered By: PROVIDER TEM on 08-22-2023 Glucose Auto test strip (U) [Mass/Vol] Normal mg/dL Normal [facility] Urine hemoglobin detection b y automated test stripOrdered By: PROVIDER TEMP on 08-22-2023 Hemoglobin Auto test strip Ql (U) Negative Negative [facility] Urine leukocyte esterase det ection by automated test stripOrdered By: PROVIDER TEMPalmer on 08-22-2023 Leukocyte esterase Auto test strip Ql (U) 4+ Negative [facility] Urine pH measurement by auto mated test stripOrdered By: PROVIDER TEMP on 08-22-2023 pH (U) 6.5 [pH] Normal 5.0-9.[address] [facility] Comment on above: Order Comment: Name Collection Type:: Clean-Voided Midstream Performed By: #### C UU, ADDONUAPLUS #### [facility] [address] [place] [id number] [facility] Urobilinogen Auto test strip (U) [Mass/Vol]Ordered By: PROVIDER TEMP on 08-22-2023 Urobilinogen (U) [Mass/Vol] Normal mg/dL Normal [facility] Yeast detection in urine sed iment by light microscopyOrdered By: PROVIDER TEMP on 08-22-2023 Yeast LM Ql (Urine sed) 3+ [HPF] None Seen [facility] Consent for Treatmenton 07-25 Consent for Treatment [id number] Normal [facility] ED Clinical Summaryon 2023 ED Clinical Summary (Inserted Image. Sara ble to display) [address] [address] ED Clinical Summary Person Information [facility]: [facility] Age: 73 Years : 1950 Sex: Female Language: Dutch PCP: AZUL GORMAN CNP Marital Status: Phone: [phone] Visit Id: Visit Reason: Altered mental status; HAS BEEN CONFUSED, Speciality: Acuity: 3 Enc Type: Emergency Med Service: Emergency Arrival: 08/21/2023 15:03:11 Discharge: 08/21/2023 15:23:01 LOS: 000 00:20 Checkin: 08/21/2023 15:03:11 Checkout: 08/21/2023 15:23:01 Dispo Type: Left Without Being Seen EVENTS: Event Name Event Status Request Date/Time Start Date/Time Complete Date/Time Arrive Complete 08/21/2023 15:03:11 08/21/2023 15:03:11 08/21/2023 15:03:11 Document Home Meds Request 08/21/2023 15:03:11 Triage Complete 08/21/2023 15:03:11 08/21/2023 15:14:52 08/21/2023 15:14:52 EKG Request 08/21/2023 15:10:06 Isolation Screening Request 08/21/2023 15:14:53 Discharge Complete 08/21/2023 15:23:16 08/21/2023 15:23:16 08/21/2023 15:23:16 Transfer Complete 08/21/2023 15:23:16 08/21/2023 15:23:16 08/21/2023 15:23:16 ADDRESS: [address] [facility] [id number] PHYS DOC NOTES: MEDICAL INFORMATION: Prescriptions Given: Medications to Continue with No Changes Other Medications amlodipine (amLODIPine 5 mg Tab) 1 Tablets By Mouth every day. TAKE 1 TABLET BY MOUTH EVERY DAY. celecoxib (celecoxib 200 mg Cap) TAKE 1 CAPSULE BY MOUTH EVERY DAY. cimetidine (cimetidine 300 mg oral tablet) 2 Tablets By Mouth 3 times a day. Refills: 5. citalopram (citalopram 20 mg Tab) TAKE 1 TABLET BY MOUTH EVERY DAY. clonazepam (clonazepam 1 mg Tab) TAKE 1 TABLET BY MOUTH THREE TIMES A DAY NEEDED FOR ANXIETY. cyanocobalamin (cyanocobalamin 1000 mcg/mL Inj) 1 Milliliter Intramuscular once a month. Refills: 1. docusate (Colace 100 mg Cap) 1 Capsules By Mouth 2 times a day. Hold for diarrhea. Refills: 0. Ensure (Ensure Vanilla) Drink 1 bottle (8 fl. oz.) BID. Refills: 5. ferrous sulfate (ferrous sulfate 325 mg Tab) 1 Tablets By Mouth 3 times a day. Refills: 0. lisinopril (lisinopril 20 mg Tab) 1 Tablets By Mouth every day. Refills: 1. Misc Prescription (Straight Catheters & Supplies) Use daily, as directed.. Refills: 5. Misc Prescription (walking boot) right foot knee high walking Size small boot dx m21.969, m14.679 Fax to [facility]. Refills: 0. multivitamin with minerals (Therapeutic Multiple Vitamins with Minerals Tab) By Mouth every day. mupirocin topical (mupirocin Top 2% Oint) 1 Application Topical 3 times a day. Refills: 0. ondansetron (ondansetron [...] bedtime) as needed for constipation. Refills: 1. trazodone (traZODONE 150 mg Tab) 1 Tablets By Mouth once a day (at bedtime). Do not give with clonazepam. Refills: 3. PATIENT EDUCATION INFORMATION: Instructions: Follow up: DIAGNOSIS: Normal [facility] ED Patient Education Noteon 08-21-2023 ED Patient Education Note Normal [facility] ED Patient Summaryon 024 ED Patient Summary (Inserted Image. Sara ble to display) [place] [address] Patient Discharge Instructions Person Information Name: MAEGAN DYE Age: 73 Years Arrival Date: 08/21/2023 15:03:11 Discharge Diagnosis: Primary Care Physician: AZUL GORMAN CNP Provider Information Primary Provider: [employer] Vertical:None The exam and treatment you received in the Emergency Department were for an urgent problem and are not intended as complete care. It is important that you follow up with a doctor, nurse practitioner, or physician?s assistant executive housekeeper for ongoing care. If your symptoms become [...] opioids can be used to help relieve gpenzcbm-zn-vznzlt pain and are often prescribed following a [...] be struggling with addiction, tell your health health care aide and ask for guidance or call [facility]?S National Helpline at 4-080-386-ONQN. h Source: [place] Department of Health and Human Services/Center for Disease Control & Prevention [facility] Medications Given: Medication Dose Route No medications found. Medication Information: Medicati (more content not included)... Normal [facility] CBC w/ Auto Diffon 4 Basophils/100 WBC (Bld) 1.1 % Normal 0.0-2.0 [facility] Comment on above: Performed By: #### 2 561025, 099679179, 2174438, 709345867, 16971329, 4132766 ####[facility] [address] [place] [address] Basophils/Leukocytes Auto (Bld) [Pure # fraction] 0.1 E9/L Normal 0.0-0.2 [facility] Comment on above: Performed By: #### 2 633043, 324862369, 1152251, 749582425, 41266221, 7874073 ####[facility] [address] [place] [address] Eosinophils (Bld) [#/Vol] 0.3 E9/L Normal 0.0-0.5 [facility] Comment on above: Performed By: #### 2 828259, 254701261, 1903357, 614822327, 51809198, 2301817 ####[address] [place] [address] Eosinophils/100 WBC (Bld) 4.9 % Normal 0.0-8.0 [facility] Comment on above: Performed By: #### 2 779525, 752180132, 4295166, 917286349, 82172000, 7153036 ####[address] [address] Erythrocyte distribution width (RBC) [Ratio] 13.0 % Normal 10.9-14.2 [facility] Comment on above: Performed By: #### 2 413572, 421401442, 4633389, 233788099, 65938461, 1435336 ####[address] [address] Hematocrit (Bld) [Volume fraction] 41.4 % Normal 34.0-46.0 [facility] Comment on above: Performed By: #### 2 157916, 694033175, 1170242, 064047992, 31145636, 3589425 ####[address] [address] Hemoglobin (Bld) [Mass/Vol] 13.0 g/dL Normal 12.0-16.0 [facility] Comment on above: Performed By: #### 2 087502, 331188615, 7069638, 020924550, 96520063, 9426834 ####[address] [address] Lymphocytes (Bld) [#/Vol] 1.6 E9/L Normal 1.0-4.0 [facility] Comment on above: Performed By: #### 2 641402, 598321506, 6257505, 852419063, 54072474, 7305428 ####[address] [address] Lymphocytes/100 WBC (Bld) 28.3 % Normal 14.0-50.0 [facility] Comment on above: Performed By: #### 2 722428, 158851319, 6691922, 631700400, 08126525, 6012427 ####[address] [address] MCH (RBC) [Entitic mass] 28.2 pg Normal 27.0-34.0 [facility] Comment on above: Performed By: #### 2 163872, 369197922, 4261441, 695282471, 32872826, 6284548 ####[address] [address] MCHC (RBC) [Mass/Vol] 31.4 g/dL Normal 31.4-36.0 [facility] Comment on above: Performed By: #### 2 032172, 708048718, 0973137, 564826058, 03164585, 3847638 ####[address] [address] MCV (RBC) [Entitic vol] 89.7 fL Normal 80.0-100.0 [facility] Comment on above: Performed By: #### 2 112582, 820149584, 0173614, 984424385, 00380722, 2236869 ####[address] [address] Monocytes (Bld) [#/Vol] 0.3 E9/L Normal 0.2-1.0 [facility] Comment on above: Performed By: #### 2 789544, 597623272, 3121081, 829267493, 57148375, 5699051 ####[address] [address] Neutrophils (Bld) [#/Vol] 3.3 E9/L Normal 2.0-7.5 [facility] Comment on above: Performed By: #### 2 702624, 571814957, 2775470, 470430536, 63168562, 9011855 ####[address] [address] Neutrophils/100 WBC (Bld) 60.2 % Normal 36.0-75.0 [facility] Comment on above: Performed By: #### 2 069160, 705679145, 6031696, 260961886, 63761910, 3754213 ####[address] [address] Platelet 162.0 E9/L Normal 150.0-500. 0 [facility] Comment on above: Performed By: #### 2 752476, 559852729, 0931886, 345970019, 47300960, 8969514 ####[address] [address] Platelet mean volume (Bld) [Entitic vol] 8.5 fL Normal 6.4-10.8 [facility] Comment on above: Performed By: #### 2 432575, 890851516, 3652395, 644461836, 78271135, 1776106 ####[address] [address] RBC (Bld) [#/Vol] 4.6 E12/L Normal 4.3-5.9 [facility] Comment on above: Performed By: #### 2 589158, 273966985, 6976675, 218991095, 44254935, 0357138 ####[address] [address] WBC corrected for nucl RBC Auto (Bld) [#/Vol] 5.5 E9/L Normal 4.0-11.0 [facility] Comment on above: Performed By: #### 2 479670, 429529142, 3568565, 644665246, 23927139, 4635696 ####[address] [address] CMPon 08-20-2023 Albumin [Mass/Vol] 4.0 g/dL Normal 3.3-5.0 [facility] Comment on above: Performed By: #### 2 828768, 872195178, 7176519, 101757771, 52421333, 2997448 ####[facility] [address] [place] [address] Albumin/Globulin (S) [Mass conc ratio] 1.8 Normal 1.1-2.2 [facility] Comment on above: Performed By: #### 2 639332, 939174366, 8395725, 338435118, 24522460, 1921887 ####[address] [place] [address] ALP [Catalytic activity/Vol] 84 Int._Unit/L Normal 21-98 [facility] Comment on above: Performed By: #### 2 341003, 418528704, 2443867, 879862182, 65302276, 3854965 ####[facility] [address] [place] [address] ALT No additional P-5'-P [Catalytic activity/Vol] 8 Int._Unit/L Normal 6-46 [facility] Comment on above: Performed By: #### 2 433580, 513156250, 6412612, 771363041, 48913719, 3892863 ####[facility] [address] [place] [address] Anion gap [Moles/Vol] 9 mmol/L Normal 6-16 [facility] Comment on above: Performed By: #### 2 429419, 554255223, 1163451, 741388587, 99966391, 7678479 ####[facility] [address] [place] [address] AST [Catalytic activity/Vol] 16 Int._Unit/L Normal 5-43 [facility] Comment on above: Performed By: #### 2 907124, 652619270, 4408483, 507110894, 26984024, 2555011 ####[facility] [address] [place] [address] Bilirubin [Mass/Vol] 0.5 mg/dL Normal 0.0-1.1 [facility] Comment on above: Performed By: #### 2 133687, 256909195, 1587838, 174489004, 23878681, 2845734 ####[facility] [address] [place] [address] Calcium [Mass/Vol] 9.2 mg/dL Normal 8.9-11.1 [facility] Comment on above: Performed By: #### 2 943912, 890478460, 8630484, 980827857, 34989014, 8192491 ####[facility] [address] [place] [address] Chloride [Moles/Vol] 105 mmol/L Normal 101-111 [facility] Comment on above: Performed By: #### 2 567226, 026397531, 7654593, 428614321, 83158100, 0149982 ####[facility] [address] [place] [address] CO2 [Moles/Vol] 30 mmol/L Normal 21-31 [facility] Comment on above: Performed By: #### 2 165057, 984476280, 5557659, 261099266, 81833303, 5440553 ####[facility] [address] [place] [address] Creatinine [Mass/Vol] 1.2 mg/dL Normal 0.5-1.3 [facility] Comment on above: Performed By: #### 2 725282, 112010092, 3199473, 053542399, 48741152, 1972455 ####[facility] [address] [place] [address] Globulin (S) [Mass/Vol] 2.2 g/dL Normal 1.4-4.0 [facility] Comment on above: Performed By: #### 2 161548, 575932450, 8485313, 450052794, 68303535, 1807897 ####[facility] [address] [place] [address] Glucose [Mass/Vol] 108 mg/dL Normal 55-199 [facility] Comment on above: Performed By: #### 2 256437, 326016966, 0399658, 167769471, 05365684, 3204507 ####[facility] [address] [place] [address] Potassium [Moles/Vol] 3.7 mmol/L Normal 3.5-5.3 [facility] Comment on above: Performed By: #### 2 620473, 738044865, 8418476, 425524214, 75035319, 4578309 ####[facility] [address] [place] [address] Protein [Mass/Vol] 6.2 g/dL Normal 6.0-7.8 [facility] Comment on above: Performed By: #### 2 149059, 645861633, 8380878, 617490319, 49103848, 0255698 ####[facility] [address] [place] [address] Sodium [Moles/Vol] 140 mmol/L Normal 135-145 [facility] Comment on above: Performed By: #### 2 219188, 916497875, 7964931, 518514915, 34267658, 7495550 ####[facility] [address] [place] [address] Urea nitrogen [Mass/Vol] 10 mg/dL Normal 5-21 [facility] Comment on above: Performed By: #### 2 518847, 449724730, 8782559, 334794822, 12127042, 5386591 ####[facility] [address] [place] [address] Urea nitrogen/Creatinine [Mass ratio] 8 No Units Low 10-20 [facility] Comment on above: Performed By: #### 2 863872, 517586051, 3936055, 948880843, 48946196, 8097864 ####[facility] [address] [place] [address] IzuE9bek 08-20-2023 HbA1c (Bld) [Mass fraction] 5.5 % Normal <=5.9 [facility] Comment on above: Performed By: #### 2 085761, 497935157, 0686589, 219532473, 42693840, 7979213 ####[address] [address] Vit B12on 08-20-2023 Cobalamin (Vitamin B12) [Mass/Vol] 354 pg/mL Normal 50-1500 [facility] Comment on above: Performed By: #### 2 752244, 828163593, 0290353, 919007025, 52104774, 0654436 ####[address] [address] Vitamin D 25 Hydroxyon 08-19 25-hydroxyvitamin D3 [Mass/Vol] 39.9 ng/mL Normal 30.0-100.0 [facility] Comment on above: Performed By: #### 2 832158, 345159611, 8587515, 449564209, 46142678, 7958719 ####[address] [address] eGFRon 08-20-2023 eGFR 47 mL/min/1.73 m2 Low >=59 [facility] Comment on above: Order Comment: Order added by Discern Expert. Performed By: #### 2 299640, 077822089, 9226482, 562702074, 39088822, 7988087 ####[address] [address] Physician Orderon 08-18-2023 Physician Order [id number] Normal [facility] .UA With Cult Reflexon 08-13 Bilirubin Ql (U) Negative Normal Negative [facility] Comment on above: Performed By: #### 2 775636, 84669692 #### [facility] [address] [place] [address] Clarity (U) CLEAR Normal Clear [facility] Comment on above: Performed By: #### 2 834033, 63493824 #### [facility] [address] [place] [address] Color (U) STRAW Invalid Interpretation Code [facility] Comment on above: Performed By: #### 2 887448, 06964483 #### [facility] [address] [place] [address] Glucose Test strip (U) [Mass/Vol] Negative Normal Negative [facility] Comment on above: Performed By: #### 2 385535, 33024863 #### [facility] [address] [place] [address] Hemoglobin Ql (U) Negative Normal Negative [facility] Comment on above: Performed By: #### 2 992809, 26336061 #### [facility] [address] [place] [address] Ketones (U) [Mass/Vol] Negative Normal Negative [facility] Comment on above: Performed By: #### 2 862513, 61461121 #### [facility] [address] [place] [address] Nitrite Ql (U) Negative Normal Negative [facility] Comment on above: Performed By: #### 2 848296, 22502196 #### [facility] [address] [place] [address] pH (U) 8.0 [pH] Invalid Interpretation Code 5.0-9.0 [facility] Comment on above: Performed By: #### 2 029942, 20847352 #### [facility] [address] [place] [address] Protein (U) [Mass/Vol] Negative Normal Negative [facility] Comment on above: Performed By: #### 2 368159, 70179724 #### [facility] [address] [place] [address] Specific gravity (U) [Rel density] 1.025 Invalid Interpretation Code 1.005-1.03 0 [facility] Comment on above: Performed By: #### 2 105338, 85029588 #### [facility] [address] [place] [address] Type of Urine collection method Choi Normal [facility] Comment on above: Performed By: #### 2 242639, 60067802 #### [facility] [address] [place] [address] Urobilinogen Qn (U) 0.2 {Rolan'U}/dL Normal 0.0-1.0 [facility] Comment on above: Performed By: #### 2 454560, 93870616 #### [facility] [address] [place] [address] WBC Auto Ql (U) Negative Normal Negative [facility] Comment on above: Performed By: #### 2 529408, 66573920 #### [facility] [address] [place] [address] Epithelial cells.squamous LM.HPF (Urine sed) [#/Area] 0-2 Normal 0-2 [facility] Comment on above: Performed By: #### 2 641458, 61409732 #### [facility] [address] [place] [address] [place].plasma/[place] .RBC (Bld) [Mass ratio] 0-3 Normal 0-3 [facility] Comment on above: Performed By: #### 2 964539, 65075240 #### [facility] [address] [place] [address] WBC LM.HPF (Urine sed) [#/Area] 0-5 Normal 0-5 [facility] Comment on above: Performed By: #### 2 674782, 72070682 #### [facility] [address] [place] [address] BMPon 08-14-2023 Anion gap [Moles/Vol] 9 mmol/L Normal 6-16 [facility] Comment on above: Performed By: #### 1 2407768, 5743063, 4734939, 2865187 #### [facility] [address] [place] [address] Calcium [Mass/Vol] 9.2 mg/dL Normal 8.9-11.1 [facility] Comment on above: Performed By: #### 1 0424235, 1339280, 4889738, 5345819 #### [facility] [address] [place] [address] Chloride [Moles/Vol] 102 mmol/L Normal 101-111 [facility] Comment on above: Performed By: #### 1 4507984, 2340153, 7299385, 2047848 #### [facility] [address] [place] [address] CO2 [Moles/Vol] 33 mmol/L High 21-31 [facility] Comment on above: Performed By: #### 1 5791570, 6120213, 1256513, 6794933 #### [facility] [address] [place] [address] Creatinine [Mass/Vol] 1.0 mg/dL Normal 0.5-1.3 [facility] Comment on above: Performed By: #### 1 2127286, 8911487, 8669286, 6624400 #### [facility] [address] [place] [address] Glucose [Mass/Vol] 98 mg/dL Normal 55-199 [facility] Comment on above: Performed By: #### 1 5360262, 5140905, 7478562, 2472283 #### [facility] [address] [place] [address] Potassium [Moles/Vol] 3.8 mmol/L Normal 3.5-5.3 [facility] Comment on above: Performed By: #### 1 4308634, 7829070, 3533811, 0462900 #### [facility] [address] [place] [address] Sodium [Moles/Vol] 140 mmol/L Normal 135-145 [facility] Comment on above: Performed By: #### 1 9739947, 4994383, 2666550, 6324160 #### [facility] [address] [place] [address] Urea nitrogen [Mass/Vol] 10 mg/dL Normal 5-21 [facility] Comment on above: Performed By: #### 1 9827351, 2472285, 7663794, 3297330 #### [facility] [address] [place] [address] Urea nitrogen/Creatinine [Mass ratio] 10 No Units Normal 10-20 [facility] Comment on above: Performed By: #### 1 9284338, 2994687, 6681625, 6053348 #### [facility] [address] [place] [address] C Urineon 08-14-2023 Bacteria identified Cx Nom (U) Microbiology PROCEDURE: Urine Culture [R1] SOURCE: U Cath BODY SITE: COLLECTED DATE/TIME: 08/12/2023 19:41 EDT RECEIVED DATE/TIME: 08/12/2023 22:52 EDT START DATE/TIME: 08/12/2023 22:52 EDT FREE TEXT SOURCE: jimbo Talavera PA-C, Deborah Talavera PA-C, Deborah Granado FINAL REPORTS Final Report [] Verified Date/Time: 08/14/2023 09:04 EDT No growth at 2 days. Performing Locations R1: This test was performed at: [facility], [address] [place] [address], [address]- , , Normal [facility] Comment on above: Performed By: #### 2 899089, 98453061 #### [facility] [address] [place] [address] CBC w/ Auto Diffon 4 Basophils/100 WBC (Bld) 0.9 % Normal 0.0-2.0 [facility] Comment on above: Performed By: #### 1 9459088, 0612190, 7019243, 4840793 #### [facility] [address] [place] [address] Basophils/Leukocytes Auto (Bld) [Pure # fraction] 0.0 E9/L Normal 0.0-0.2 [facility] Comment on above: Performed By: #### 1 7232885, 9466342, 9975139, 1356508 #### [facility] [address] [place] [address] Eosinophils (Bld) [#/Vol] 0.3 E9/L Normal 0.0-0.5 [facility] Comment on above: Performed By: #### 1 4049773, 0830758, 0923377, 4531779 #### [facility] [address] [place] [address] Eosinophils/100 WBC (Bld) 5.3 % Normal 0.0-8.0 [facility] Comment on above: Performed By: #### 1 8677719, 9705692, 5695876, 7185121 #### [facility] [address] [place] [address] Erythrocyte distribution width (RBC) [Ratio] 12.8 % Normal 10.9-14.2 [facility] Comment on above: Performed By: #### 1 3639024, 7933614, 8618550, 7133740 #### [facility] [address] [place] [address] Hematocrit (Bld) [Volume fraction] 39.8 % Normal 34.0-46.0 [facility] Comment on above: Performed By: #### 1 1274406, 3006161, 2501959, 5434279 #### [facility] [address] [place] [address] Hemoglobin (Bld) [Mass/Vol] 13.0 g/dL Normal 12.0-16.0 [facility] Comment on above: Performed By: #### 1 6807638, 1701173, 0354824, 5599864 #### [facility] [address] [place] [address] Lymphocytes (Bld) [#/Vol] 1.1 E9/L Normal 1.0-4.0 [facility] Comment on above: Performed By: #### 1 0364649, 7149252, 0576178, 3847115 #### [facility] [address] [place] [address] Lymphocytes/100 WBC (Bld) 23.2 % Normal 14.0-50.0 [facility] Comment on above: Performed By: #### 1 1471372, 6173057, 9697387, 7505682 #### [facility] [address] [place] [address] MCH (RBC) [Entitic mass] 28.4 pg Normal 27.0-34.0 [facility] Comment on above: Performed By: #### 1 0821598, 2316310, 6844276, 7709321 #### [facility] [address] [place] [address] MCHC (RBC) [Mass/Vol] 32.6 g/dL Normal 31.4-36.0 [facility] Comment on above: Performed By: #### 1 5970486, 3245690, 2229873, 3712271 #### [facility] [address] [place] [address] MCV (RBC) [Entitic vol] 87.3 fL Normal 80.0-100.0 [facility] Comment on above: Performed By: #### 1 7779004, 4254438, 1973972, 7823917 #### [facility] [address] [place] [address] Monocytes (Bld) [#/Vol] 0.4 E9/L Normal 0.2-1.0 [facility] Comment on above: Performed By: #### 1 8120257, 4233333, 5303740, 2557747 #### [facility] [address] [place] [address] Neutrophils (Bld) [#/Vol] 3.0 E9/L Normal 2.0-7.5 [facility] Comment on above: Performed By: #### 1 8716137, 4522763, 4390571, 6019383 #### [facility] [address] [place] [address] Neutrophils/100 WBC (Bld) 63.1 % Normal 36.0-75.0 [facility] Comment on above: Performed By: #### 1 7923359, 1029422, 0668235, 4521958 #### [facility] [address] [place] [address] Platelet mean volume (Bld) [Entitic vol] 7.1 fL Normal 6.4-10.8 [facility] Comment on above: Performed By: #### 1 0613005, 2796738, 4939036, 0087964 #### [facility] [address] [place] [address] Platelets (Bld) [#/Vol] 208.0 E9/L Normal 150.0-500. 0 [facility] Comment on above: Performed By: #### 1 3004157, 5037852, 5514151, 8615733 #### [facility] Laboratory [address] [place] [address] RBC (Bld) [#/Vol] 4.6 E12/L Normal 4.3-5.9 [facility] Comment on above: Performed By: #### 1 [id number], [id number], [id number], [id number] #### [facility] Laboratory [address] [place] [address]606 WBC corrected for nucl RBC Auto (Bld) [#/Vol] 4.8 E9/L Normal 4.0-11.0 [facility] Comment on above: Performed By: #### 1 [id number], [id number], [id number], [id number] #### [facility] Laboratory [address] [place] [address] CHEMISTRYOrdered By: SYSTEM SYSTEM on 08-14-2023 Albumin [...] for Treatmenton 07-25 Consent for Treatment [id number] Normal [facility] Discharge Instructionson Discharge Instructions [id number] Normal [facility] ED Clinical Summaryon 2023 ED Clinical Summary (Inserted Image. Sara ble to display) [place] [id number] ED Clinical Summary Person Information Name: MAEGAN DYE/[facility] Age: 73 Years : 1950 Sex: Female Language: Dutch PCP: AZUL GORMAN CNP Marital Status: Phone: [phone] Visit Id: Visit Reason: Urinary retention; DR STEP. GORMAN SENT OVER Speciality: Acuity: 3 Enc Type: Emergency Med Service: Emergency Arrival: 08/14/2023 09:16:36 Discharge: 08/14/2023 11:20:11 LOS: 000 02:04 Checkin: 08/14/2023 09:16:36 Checkout: 08/14/2023 11:20:11 Dispo Type: Home (Routine DC) EVENTS: Event Name Event Status Request Date/Time Start Date/Time Complete Date/Time Arrive Complete 08/14/2023 09:16:36 08/14/2023 09:16:36 08/14/2023 09:16:36 Document Home Meds Request 08/14/2023 09:16:36 Triage Complete 08/14/2023 09:16:36 08/14/2023 09:31:15 08/14/2023 09:31:15 Bed Assign Complete 08/14/2023 09:21:44 08/14/2023 09:21:44 08/14/2023 09:21:44 Dr Exam Complete 08/14/2023 09:21:44 08/14/2023 09:23:54 08/14/2023 09:23:54 RN Exam Complete 08/14/2023 09:21:44 08/14/2023 09:33:12 08/14/2023 09:33:12 Registration Complete 08/14/2023 09:23:54 08/14/2023 09:58:44 08/14/2023 09:58:44 Isolation Screening Request 08/14/2023 09:31:16 EKG Complete 08/14/2023 09:54:16 08/14/2023 10:27:37 Pending Labs Complete 08/14/2023 09:54:16 08/14/2023 10:53:11 Lab Complete 08/14/2023 09:54:16 08/14/2023 10:29:29 Patient Care Request 08/14/2023 09:54:16 Meds Admin Cancel 08/14/2023 09:55:29 08/14/2023 09:56:23 Reg Complete Request 08/14/2023 09:58:44 Reg Bed Request Complete 08/14/2023 09:58:44 08/14/2023 09:58:44 08/14/2023 09:58:44 Pending Labs Complete 08/14/2023 10:10:25 08/14/2023 10:10:25 08/14/2023 10:29:29 Lab Complete 08/14/2023 10:10:25 08/14/2023 10:10:25 08/14/2023 10:29:29 Pending Labs Complete 08/14/2023 10:26:59 08/14/2023 10:26:59 08/14/2023 10:39:38 Lab Complete 08/14/2023 10:26:59 08/14/2023 10:26:59 08/14/2023 10:39:38 Urine Collect Complete 08/14/2023 10:26:59 08/14/2023 10:26:59 08/14/2023 10:39:38 Pending Labs Complete 08/14/2023 10:49:28 08/14/2023 10:49:28 08/14/2023 10:49:28 Pending Labs Collected 08/14/2023 10:53:11 08/14/2023 10:53:11 Lab Collected 08/14/2023 10:53:11 08/14/2023 10:53:11 Discharge Complete 08/14/2023 11:13:07 08/14/2023 11:20:16 08/14/2023 11:20:16 Transfer Complete 08/14/2023 11:20:16 08/14/2023 11:20:16 08/14/2023 11:20:16 ADDRESS: [address] [facility] [phone] PHYS DOC NOTES: MEDICAL INFORMATION: Prescriptions Given: Medications to Continue with No Changes Other Medications amlodipine (amLODIPine 5 mg Tab) 1 Tablets By Mouth every day. TAKE 1 TABLET BY MOUTH EVERY DAY. celecoxib (celecoxib 200 mg Cap) TAKE 1 CAPSULE BY MOUTH EVERY DAY. cephalexin (Keflex 500 mg Cap) 1 Capsules By Mouth every 12 hours for 7 Days. Refills: 0. cimetidine (cimetidine 300 mg oral tablet) 2 Tablets By Mouth 3 times a day. Refills: 5. ciprofloxacin (Cipro 250 mg Tab) 1 Tablets By Mouth every 12 hours for 7 Days. Refills: 0. citalopram (citalopram 20 mg Tab) TAKE 1 TABLET BY MOUTH EVERY DAY. clonazepam (clonazepam 1 mg Tab) TAKE 1 TABLET BY MOUTH THREE TIMES A DAY NEEDED FOR ANXIETY. cyanocobalamin (cyanocobalamin 1000 mcg/mL Inj) 1 Milliliter Intramuscular once a month. Refills: 1. docusate (Colace 100 mg Cap) 1 Capsules By Mouth 2 times a day. Hold for diarrhea. Refills: 0. Ensure (Ensure Vanilla) Drink 1 bottle (8 fl. oz.) BID. Refills: 5. ferrous sulfate (ferrous sulfate 325 mg Tab) 1 Tablets By Mouth 3 times a day. Refills: 0. fluticasone nasal (fluticasone 0.05 mg/inh Nasal [place]) 2 Sprays Nasal Inhalation every day. each nostril. Refills: 5. lisinopril (lisinopril 20 mg Tab) 1 Tablets By Mouth every day. Refills: 1. Misc Prescription (Straight Catheters & Supplies) Use daily, as directed.. Refills: 5. Misc Prescription (walking boot) right foot knee high walking Size small boot dx m21.969, m14.679 Fax to [facility]. Refills: 0. multivitamin with minerals (Therapeutic Multiple Vitamins with Minerals Tab) By Mouth every day. mupirocin topical (mupirocin Top 2% Oint) 1 Application Topical 3 times a day. Refills: 0. ondansetron (ondansetron [...] bedtime) as needed for constipation. Refills: 1. trazodone (traZODONE 150 mg Tab) 1 Tablets By Mouth once a day (at bedtime). Do not give with clonazepam. Refills: 3. PATIENT EDUCATION INFORMATION: Instructi (more content not included)... Normal [facility] ED Note-Physicianon 08-14-19 ED Note-Physician Basic Information Time Seen: Johny Willson DO 08/14/2023 09:23 Chief Complaint c/o UTI has been here 2x this week, son states [facility] azul sent pt over to get IV antibiotics. pt on cipro 500mg. pt usually self caths, choi placed recently due to retention. History of Present Illness 73-year-old female to the emergency department with chief complaint of urinary tract infection. Patient reports that she has felt like she had a urinary tract infection for the last 2 weeks. She reports that she has been on Keflex and Cipro 2 times. Most recent course of Cipro was started 2 days ago. Son reports he is concerned due to her multiple ED visits. He reports last night he left to run some errands when he came back home and ambulance was leaving with Maegan. Maegan reports that she believes that 2 Choi catheters were placed at that time. Her son reports that she gets confused at night and this has been ongoing for some time. No confusion today. He reports that he called her primary at [facility] last night and left a message and the call was returned today. He was instructed to bring her to the emergency department for admission for IV antibiotics as she is not clearing the urinary tract infection. Review of Systems A 10 point review of systems is negative except as noted above. Medical and Surgical History: Reviewed and noted Social history: Lives at home Tobacco: Denies Physical Exam Vitals & Measurements T: 36.8 ?C(Oral) HR: 62(Peripheral) RR: 18 BP: 125/86 SpO2: 95% HT: 162 cm WT: 62.4 kg BMI: 23.78 VITALS: I have reviewed the triage vital signs. GENERAL: Well developed, well appearing adult female in no acute distress. NEURO: Alert and oriented to person, place, and time. Moves all extremities. Face is symmetric and expressive. Normal gait. EYES: PERRL. No scleral icterus or conjunctival injection. No discharge. HENT: Normocephalic, atraumatic. Hearing is grossly intact. Nares grossly patent and without discharge. Mucous membranes moist. NECK: No JVD. Patient moves neck without restriction. CARDIO: Rhythm regular. Normal rate. No murmur, rub, or gallop. Pulses equal bilaterally in the upper and lower extremity. No lower extremity edema. PULM: Lungs clear to auscultation in all cutler. No wheezes, rales, or rhonchi. No conversational dyspnea. No splinting, stridor, or accessory muscle use. GI/: Abdomen is soft and non-tender. Normoactive bowel sounds. EXTREMITIES: Symmetric muscle bulk. No joint swelling. No clubbing, cyanosis, or deformity. SKIN: Warm and dry. Normal turgor. No rash or lesions appreciated. PSYCH: Mood, affect, and interaction is appropriate to the setting. Medical Decision Making 73-year-old female to the emergency department with chief complaint of ongoing urinary difficulties. Vital stable, the patient is afebrile. Neurologic examination is nonfocal. She is alert and oriented and at her baseline. Patient is very well-known to myself for this complaint. Previous ED visits were reviewed. There are typical presentations for the patient. Her urine cultures from the last 2 visits were reviewed, both were negative. She does not have a urinary tract infection at this time. This patient does have some cognitive deficit at baseline, sundowning, psychiatric overtones from her bipolar disorder with occasional psychotic features. This patient is known to perseverate on her urination/straight cathing. Discussed findings with the son. I do not believe that she needs IV antibiotics for urinary tract infection at this time. Will obtain some basic labs. Patient agrees with this plan. Labs unremarkable. Urinalysis without evidence of infection. I discussed findings with the patient. I did call the PCPs office and spoke with the nurse to let her know of negative workup. Patient is currently at her baseline. She is appropriate for discharge home. Patient and her son agree with this plan. Assessment/Plan Dysuria (R30.0: Dysuria) Orders: Basic Metabolic Panel CBC w/ Auto Diff ECG 12 Lead Adult eGFR Hepatic Function Panel Saline Lock Insert UA with Cult Rflx Disposition Plan Patient Discharge Condition Stable Discharge Disposition Home Discharge Prescription List Prescriptions No active prescription medications Follow-up No qualifying data available Problem List/Past Medical History Ongoing Acute UTI [...] stress disorder) Self-care deficit SIADH (syndrome of inappropri (more content not included)... Normal [facility] Comment on above: Result Comment: Elec tronically Signed By: Johny Willson DO\.br\Date and Time Signed: 08/14/23 11:20 EDT ED Patient Education Noteon 08-14-2023 ED Patient Education Note Urology Dysuria Dysuria is pain or discomfort during [...] be caused by many different things, including: ? Urinary tract infection. ? Kidney stones or bladder stones. ? Certain STIs (sexually transmitted infections), such as chlamydia. ? Dehydration. ? Inflammation of the tissues of the vagina. ? Use of certain medicines. ? Use of certain soaps or scented products that cause irritation. Follow these instructions at home: Medicines ? Take uxvt-ebo-ljccamh and prescription medicines only as told by your health care provider. ? If you were prescribed an antibiotic medicine, take it as told by your health care provider. Do not stop taking the antibiotic even if you start to feel better. Eating and drinking ? Drink enough fluid to keep your urine pale yellow. ? Avoid caffeinated beverages, tea, and alcohol. These beverages can irritate the bladder and make dysuria worse. In males, alcohol may irritate the prostate. General instructions ? Watch your condition for any changes. ? Urinate often. Avoid holding urine for long periods of time. ? If you are female, you should wipe from front to back after urinating or having a bowel movement. Use each piece of toilet paper only once. ? Empty your bladder after sex. ? Keep all follow-up visits. This is important. ? If you had any tests done to find the cause of dysuria, it is up to you to get your test results. Ask your health care provider, or the department that is doing the test, when your results will be ready. Contact a health care provider if: ? You have a fever. ? You develop pain in your back or sides. ? You have nausea or vomiting. ? You have blood in your urine. ? You are not urinating as often as you usually do. Get help right away if: ? Your pain is severe and not relieved with medicines. ? You cannot eat or drink without vomiting. ? You are confused. ? You have a rapid heartbeat while resting. ? You have shaking or chills. ? You feel extremely weak. Summary ? Dysuria is pain or discomfort while urinating. Many different conditions can lead to dysuria. ? If you have dysuria, you may have to urinate frequently or have the sudden feeling that you have to urinate (urgency). ? Watch your condition for any changes. Keep all follow-up visits. ? Make sure that you urinate often and drink enough fluid to keep your urine pale yellow. This information is not intended to replace advice given to you by your health care provider. Make sure you discuss any questions you have with your health care provider. Document Revised: 12/22/2020 Document Reviewed: 12/22/2020 Elsevier Patient Education ? 2022 [employer]. Normal [facility] ED Patient Summaryon 024 ED Patient Summary (Inserted Image. Sara ble to display) [address] [address] Patient Discharge Instructions Person Information Name: MAEGAN DYE Age: 73 Years Arrival Date: 08/14/2023 09:16:36 Discharge Diagnosis: Dysuria Primary Care Physician: AZUL GORMAN CNP Provider Information Primary Provider: Johny Willson DO [employer] Set Up Operator Vertical:None The exam and treatment you received in the Emergency Department were for an urgent problem and are not intended as complete care. It is important that you follow up with a doctor, nurse practitioner, or physician?s assistant executive housekeeper for ongoing care. If your symptoms become worse or you do not improve as expected and you are unable to reach your usual health care provider, you should return to the Emergency Department. We are available 24 hours a day. MAEGAN DYE has been given the following list of patient education materials, prescriptions and follow-up instructions: Follow-up Instructions: With: Address: When: AZUL VITA [address] [place] [address] [place] [address] Business (1) In 3 days 08/17/2023 Comments: Call the office of your primary care doctor [...] you develop any new or worsening symptoms. In the event that this physician does not participate in your insurance network, please consult with your insurance company to find a nearby participating provider. Patient Education Materials: Dysuria A MESSAGE TO ALL PATIENTS REGARDING OPIOIDS PRESCRIPTION OPIOIDS: WHAT YOU NEED TO KNOW Prescription opioids can be used to help relieve kuhtokvs-ta-bjjgcc pain and are often prescribed following a [...] reach of others (this may include visitors, childr (more content not included)... Normal [facility] HEMATOLOGYOrdered By: SYSTEM SYSTEM on 08-14-2023 Basophils/100 [...] 08-14-2023 Albumin [Mass/Vol] 3.8 g/dL Normal 3.3-5.0 [facility] Comment on above: Performed By: #### 1 [id number], [id number], 6045811, [id number] ####[facility] [address] [place] [address] Albumin/Globulin (S) [Mass conc ratio] 1.5 Normal 1.1-2.2 [facility] Comment on above: Performed By: #### 1 [id number], [id number], 0457057, [id number] ####[facility] [address] [place] [address] ALP [Catalytic activity/Vol] 79 Int._Unit/L Normal 21-98 [facility] Comment on above: Performed By: #### 1 [id number], 7430402, 7478567, [id number] ####[facility] [address] [place] [address] ALT No additional P-5'-P [Catalytic activity/Vol] 10 Int._Unit/L Normal 6-46 [facility] Comment on above: Performed By: #### 1 [id number], 3736496, 3997528, 7026042 ####[facility] [address] [place] [address] AST [Catalytic activity/Vol] 18 Int._Unit/L Normal 5-43 [facility] Comment on above: Performed By: #### 1 [id number], [id number], 9335564, [id number] ####[facility] [address] [place] [address] Bilirubin [Mass/Vol] 0.5 mg/dL Normal 0.0-1.1 [facility] Comment on above: Performed By: #### 1 [id number], 8399242, 3518483, 5650566 ####[address] [address] Bilirubin.direct [Mass/Vol] 0.1 mg/dL Normal 0.0-0.4 [facility] Comment on above: Performed By: #### 1 [id number], 5212171, 7171629, 5751300 ####[address] [address] Bilirubin.indirect [Mass or moles/Vol] 0.4 mg/dL Normal 0.1-0.9 [facility] Comment on above: Performed By: #### 1 [id number], 6167828, 6231357, 1406576 ####[address] [address] Globulin (S) [Mass/Vol] 2.6 g/dL Normal 1.4-4.0 [facility] Comment on above: Performed By: #### 1 [id number], 6599066, 3020995, 0963637 ####[address] [address] Protein [Mass/Vol] 6.4 g/dL Normal 6.0-7.8 [facility] Comment on above: Performed By: #### 1 [id number], 6470169, 3174362, 0457974 ####[address] [address] UA with Cult Rflxon 08-14-19 UA Spec Desc CANCELLED Invalid Interpretation Code [facility] Comment on above: Result Comment: CANC ELLED Performed By: #### 4 [id number] ####[facility] [address] [place] [address] Color (U) CANCELLED Invalid Interpretation Code >=0 [facility] Comment on above: Result Comment: Micr oscopic readings are only performed on those samples that meet specific criteria set forth by [facility] Laboratory. Performed By: #### 4 [id number] ####[facility] [address] [place] [address] Ketones Ql (U) CANCELLED Invalid Interpretation Code [facility] Comment on above: Performed By: #### 4 [id number] ####[facility] [address] [place] [address] UA Blood CANCELLED Invalid Interpretation Code [facility] Comment on above: Performed By: #### 4 [id number] ####[facility] [address] [place] [address] UA Bili CANCELLED Invalid Interpretation Code [facility] Comment on above: Performed By: #### 4 [id number] ####[facility] [address] [place] [address] UA Clarity CANCELLED Invalid Interpretation Code [facility] Comment on above: Performed By: #### 4 [id number] ####[facility] [address] [place] [address] UA Glucose CANCELLED Invalid Interpretation Code [facility] Comment on above: Performed By: #### 4 [id number] ####[facility] [address] [place] [address] UA Leuk Est CANCELLED Invalid Interpretation Code [facility] Comment on above: Performed By: #### 4 [id number] ####[facility] [address] [place] [address] UA Nitrite CANCELLED Invalid Interpretation Code [facility] Comment on above: Performed By: #### 4 [id number] ####[facility] [address] [place] [address] UA pH CANCELLED Invalid Interpretation Code 5.0-9.0 [facility] Comment on above: Performed By: #### 4 [id number] ####[facility] [address] [place] [address] UA Protein CANCELLED Invalid Interpretation Code [facility] Comment on above: Performed By: #### 4 [id number] ####[facility] [address] [place] [address] UA Spec Grav CANCELLED Invalid Interpretation Code 1.005-1.03 0 [facility] Comment on above: Performed By: #### 4 [id number] ####[facility] [address] [place] [address] UA Urobilinogen CANCELLED Invalid Interpretation Code [facility] Comment on above: Performed By: #### 4 [id number] ####[facility] [address] [place] [address] URINALYSISOrdered By: Lilibeth Garcia on 08-14-2023 Color (U) CANCELLED Invalid Interpretation Code >=0 [facility] UA Auto SS Comment on above: Interpretive Data: M icroscopic readings are only performed on those samples that meet specific criteria set forth by [facility]. Ketones Ql (U) CANCELLED Invalid Interpretation Code [facility] UA Auto SS UA Bili CANCELLED Invalid Interpretation Code [facility] UA Auto SS UA Blood CANCELLED Invalid Interpretation Code [facility] UA Auto SS UA Clarity CANCELLED Invalid Interpretation Code [facility] UA Auto SS UA Glucose CANCELLED Invalid Interpretation Code [facility] UA Auto SS UA Leuk Est CANCELLED Invalid Interpretation Code [facility] UA Auto SS UA Nitrite CANCELLED Invalid Interpretation Code [facility] UA Auto SS UA pH CANCELLED Invalid Interpretation Code 5.0 - 9.0 [facility] UA Auto SS UA Protein CANCELLED Invalid Interpretation Code [facility] UA Auto SS UA Spec Grav CANCELLED Invalid Interpretation Code 1.005 - 1.030 [facility] UA Auto SS UA Urobilinogen CANCELLED Invalid Interpretation Code [facility] UA Auto SS Bilirubin Ql (U) Negative (08/14/23 10:16 AM) Normal Negative [facility] UA Auto SS Clarity (U) Clear (08/14/23 10:16 AM) Normal Clear [facility] UA Auto SS Color (U) STRAW Invalid Interpretation Code [facility] UA Auto SS Epithelial cells.squamous LM.HPF (Urine sed) [#/Area] 0-2 /HPF Normal 0-2/HPF [facility] UA Auto SS Glucose Test strip (U) [Mass/Vol] Negative (08/14/23 10:16 AM) Normal Negative [facility] UA Auto SS Hemoglobin Ql (U) Negative (08/14/23 10:16 AM) Normal Negative [facility] UA Auto SS Ketones (U) [Mass/Vol] Negative (08/14/23 10:16 AM) Normal Negative [facility] UA Auto SS [place].plasma/[place] .RBC (Bld) [Mass ratio] 0-3 /HPF Normal [...] FT UA Auto SS UA Spec Desc Choi (08/14/23 10:16 AM) Normal [facility] UA Auto SS Urobilinogen Qn (U) 0.8040924 {Rolan'U}/dL Normal 0.0 - 1.0 EU/dL [facility] UA Auto SS WBC Auto Ql (U) Negative (08/14/23 10:16 AM) Normal Negative [facility] UA Auto SS WBC LM.HPF (Urine sed) [#/Area] 0-5 /HPF Normal 0-5/HPF [facility] UA Auto SS URINALYSISOrdered By: Johny Willson on 08-14-2023 UA Spec Desc CANCELLED Invalid Interpretation Code [facility] UA Auto SS Work Phone: Comment on above: Result Comment: CANC ELLED eGFRon 08-14-2023 eGFR 59 mL/min/1.73 m2 Normal >=59 [facility] Comment on above: Order Comment: Order added by Discern Expert. Performed By: #### 1 [id number], [id number], [id number], [id number] ####[facility] [address] [place] [address] Capillary Glucose POCon 07-25 Glucose [Mass/Vol] 145 mg/dL High 55-99 [facility] Comment on above: Performed By: #### 2 [id number], [id number] #### [facility] [facility] [address] [place] [address] Consent for Treatmenton 07-25 Consent for Treatment [id number] Normal [facility] Discharge Instructionson Discharge Instructions [id number] Normal [facility] ED Clinical Summaryon 2023 ED Clinical Summary (Inserted Image. Sara ble to display) [address] [address] ED Clinical Summary Person Information Name: MAEGAN DYE/[facility] Age: 73 Years : 1950 Sex: Female Language: Dutch PCP: Dolly Valenzuela CNP Marital Status: Phone: [phone] Visit Id: Visit Reason: Medical problem - minor; LOW BGL Speciality: Acuity: 3 Enc Type: Emergency Med Service: Emergency Arrival: 08/13/2023 19:38:56 Discharge: 08/13/2023 20:35:00 LOS: 000 00:57 Checkin: 08/13/2023 19:38:56 Checkout: 08/13/2023 20:35:00 Dispo Type: Home (Routine DC) EVENTS: Event Name Event Status Request Date/Time Start Date/Time Complete Date/Time Arrive Complete 08/13/2023 19:38:56 08/13/2023 19:38:56 08/13/2023 19:38:56 Document Home Meds Request 08/13/2023 19:38:56 Triage Complete 08/13/2023 19:38:56 08/13/2023 19:49:11 08/13/2023 19:49:11 Bed Assign Complete 08/13/2023 19:38:56 08/13/2023 19:38:56 08/13/2023 19:38:56 Dr Exam Complete 08/13/2023 19:38:56 08/13/2023 19:40:39 08/13/2023 19:40:39 RN Exam Complete 08/13/2023 19:38:56 08/13/2023 19:56:45 08/13/2023 19:56:45 Registration Complete 08/13/2023 19:40:39 08/13/2023 19:57:20 08/13/2023 19:57:20 Isolation Screening Request 08/13/2023 19:49:12 Reg Complete Request 08/13/2023 19:57:20 Reg Bed Request Complete 08/13/2023 19:57:20 08/13/2023 19:57:20 08/13/2023 19:57:20 Discharge Complete 08/13/2023 20:18:08 08/13/2023 21:10:19 08/13/2023 21:10:19 Transfer Complete 08/13/2023 21:10:19 08/13/2023 21:10:19 08/13/2023 21:10:19 ADDRESS: [facility] [address] [facility] [id number] PHYS DOC NOTES: MEDICAL INFORMATION: Prescriptions Given: Medications to Continue with No Changes Other Medications amlodipine (amLODIPine 5 mg Tab) 1 Tablets By Mouth every day. TAKE 1 TABLET BY MOUTH EVERY DAY. celecoxib (celecoxib 200 mg Cap) TAKE 1 CAPSULE BY MOUTH EVERY DAY. cephalexin (Keflex 500 mg Cap) 1 Capsules By Mouth every 12 hours for 7 Days. Refills: 0. cimetidine (cimetidine 300 mg oral tablet) 2 Tablets By Mouth 3 times a day. Refills: 5. ciprofloxacin (Cipro 250 mg Tab) 1 Tablets By Mouth every 12 hours for 7 Days. Refills: 0. citalopram (citalopram 20 mg Tab) TAKE 1 TABLET BY MOUTH EVERY DAY. clonazepam (clonazepam 1 mg Tab) TAKE 1 TABLET BY MOUTH THREE TIMES A DAY NEEDED FOR ANXIETY. cyanocobalamin (cyanocobalamin 1000 mcg/mL Inj) 1 Milliliter Intramuscular once a month. Refills: 1. docusate (Colace 100 mg Cap) 1 Capsules By Mouth 2 times a day. Hold for diarrhea. Refills: 0. Ensure (Ensure Vanilla) Drink 1 bottle (8 fl. oz.) BID. Refills: 5. ferrous sulfate (ferrous sulfate 325 mg Tab) 1 Tablets By Mouth 3 times a day. Refills: 0. fluticasone nasal (fluticasone 0.05 mg/inh Nasal Mulberry) 2 Sprays Nasal Inhalation every day. each nostril. Refills: 5. lisinopril (lisinopril 20 mg Tab) 1 Tablets By Mouth every day. Refills: 1. Misc Prescription (Straight Catheters & Supplies) Use daily, as directed.. Refills: 5. Misc Prescription (walking boot) right foot knee high walking Size small boot dx m21.554, m14.519 Fax to [facility]. Refills: 0. multivitamin with minerals (Therapeutic Multiple Vitamins with Minerals Tab) By Mouth every day. mupirocin topical (mupirocin Top 2% Oint) 1 Application Topical 3 times a day. Refills: 0. ondansetron (ondansetron [...] bedtime) as needed for constipation. Refills: 1. trazodone (traZODONE 150 mg Tab) 1 Tablets By Mouth once a day (at bedtime). Do not give with clonazepam. Refills: 3. PATIENT EDUCATION INFORMATION: Instructions: Urinary Tract Infection, Adult, Uvnc-ta-Fung Follow up: With: Address: When: Dolly Valenzuela [address] [place] [address], [facility], [address] [place] [phone] Business (1) In 3 days 08/16/2023 Comments: Take the antibiotics as prescribed to complete the course. Please follow-up with your primary care doctor next 2 to 3 days for further evaluation management. Please return to ED for any new or worsening symptoms or DIAGNOSIS: Encounter for medical screening examination Normal [facility] ED Note-Physicianon 08-13-19 ED Note-Physician Basic Information Time Seen: Mati Taylor DO 08/13/2023 19:40 Chief Complaint pt. per [place] [facility] for cath issues, here last night for similar c/o. History of Present Illness Patient is a 73-year-old female past medical history of bipolar disorder, hypertension, hyperlipidemia presenting to the ED for evaluation of concerns that she has 2 catheters entering. Patient was here last night for similar symptoms. Patient currently on Cipro for treatment of urinary tract infection. Patient's son is concerned because she seems confused however states that she does get like this with urinary tract infections. Review of Systems A 10 point review of systems is negative except as noted above. Medical and Surgical History: Reviewed and noted Social history: Lives at home Tobacco: Denies Physical Exam Vitals & Measurements T: 36.7 ?C(Oral) HR: 78(Peripheral) RR: 18 BP: 128/81 SpO2: 94% HT: 162 cm WT: 64.4 kg BMI: 24.54 General: Well developed, non toxic appearing, no acute distress HEENT: Head atraumatic, Mucosa moist, hearing grossly normal Neck: No JVD, tracheal deviation Cardiac: Regular rate, rhythm, no murmurs, or gallops, 2+ radial pulses Respiratory: Lungs clear to auscultation B/L, normal respiratory effort Abdomen: Soft non tender, no rebound or guarding, no peritoneal signs Extremities: No edema noted in the LE B/L, no tenderness to palpation Neurologic: Alert and oriented, speech clear Skin: No rashes or lesions Psych: Appropriate mood and behavior Medical Decision Making MEDICAL DECISION MAKING Number and Complexity of Problems Differential Diagnosis: [] [facility] Data External documents reviewed: [] My EKG interpretation: [] My CT interpretation: [] My X-ray interpretation: [] My Ultrasound interpretation: [] Decision rules/scores evaluated: [] Discussed with: [] Treatment and Disposition ED Course: Patient is a 73-year-old female well-known to our department for frequent presentations of urinary complaints presenting to the ED for evaluation of concerns that she has 2 catheters in her. Patient is nontoxic-appearing on arrival, no acute distress. On exam patient only has [address] Son is concerned about possible confusion. I did offer laboratory evaluation and admission to the hospital however patient refused and son does not want laboratory evaluation done at this time. Patient already on Cipro at home for treatment of urinary tract infection. She is discharged home she is to follow-up with her primary care doctor. Shared decision making: [] Code status: [] Assessment/Plan Encounter for medical screening examination (Z13.9: Encounter for screening, unspecified) Orders: Capillary Glucose POC Disposition Plan Discharge Prescription List Prescriptions No active prescription medications Follow-up With When Contact Information Dolly Valenzuela In 3 days 08/16/2023 EDT [address] [facility], [address] [place] [phone] Business (1) Additional Instructions: Take the antibiotics as prescribed to complete the course. Please follow-up with your primary care doctor next 2 to 3 days for further evaluation management. Please return to ED for any new or worsening symptoms or Patient Education Urinary Tract Infection, Adult, Tqou-kl-Dgfi Problem List/Past Medical History Ongoing Acute UTI [...] Vitamin D deficiency Historical Accidental fall Agent Vinson ASTHMA Benzodiazepine withdrawal Bipolar disorder Callus of [...] HTN - Hypertension Hypertension Hypo-osmolality and or hyponatremia Hypokalemia Laryngitis Left hip pain multiple broken bones Neurogenic bladder Obesity Obesity due to excess calories Oral thrush Panic disorder with agoraphobia Physical deconditioning (more content not included)... Normal [facility] Comment on above: Result Comment: Nicky burk Signed By: Mati Taylor DO.olegario\Date and Time Signed: 08/13/23 21:29 EDT ED Patient Education Noteon 08-13-2023 ED Patient Education Note Obstetrics and Gynecology Urinary Tract Infection, Adult A urinary tract infection (UTI) is an infection of any part of the urinary tract. The urinary tract includes: ? The kidneys. ? The ureters. ? The bladder. ? The urethra. These organs make, store, and get rid of pee (urine) in the body. What are the causes? This infection is caused by germs (bacteria) in your genital area. These germs grow and cause swelling (inflammation) of your urinary tract. What increases the risk? The following factors may make you more likely to develop this condition: ? Using a small, thin tube (catheter) to drain pee. ? Not being able to control when you pee or poop (incontinence). ? Being female. If you are female, these things can increase the risk: ? Using these methods to prevent : ? A medicine that kills sperm (spermicide). ? A device that blocks sperm (diaphragm). ? Having low levels of a female hormone (estrogen). ? Being . You are more likely to develop this condition if: ? You have genes that add to your risk. ? You are sexually active. ? You take antibiotic medicines. ? You have trouble peeing because of: ? A prostate that is bigger than normal, if you are male. ? A blockage in the part of your body that drains pee from the bladder. ? A kidney stone. ? A nerve condition that affects your bladder. ? Not getting enough to drink. ? Not peeing often enough. ? You have other conditions, such as: ? Diabetes. ? A weak disease-fighting system (immune system). ? Sickle cell disease. ? Gout. ? Injury of the spine. What are the signs or symptoms? Symptoms of this condition include: ? Needing to pee right away. ? Peeing small amounts often. ? Pain or burning when peeing. ? Blood in the pee. ? Pee that smells bad or not like normal. ? Trouble peeing. ? Pee that is cloudy. ? Fluid coming from the vagina, if you are female. ? Pain in the belly or lower back. Other symptoms include: ? Vomiting. ? Not feeling hungry. ? Feeling mixed up (confused). This may be the first symptom in older adults. ? Being tired and grouchy (irritable). ? A fever. ? Watery poop (diarrhea). How is this treated? ? Taking antibiotic medicine. ? Taking other medicines. ? Drinking enough water. In some cases, you may need to see a specialist. Follow these instructions at home: Medicines ? Take rtuv-nlv-adsqyvs and prescription medicines only as told by your doctor. ? If you were prescribed an antibiotic medicine, take it as told by your doctor. Do not stop taking it even if you start to feel better. General instructions ? Make sure you: ? Pee until your bladder is empty. ? Do not hold pee for a long time. ? Empty your bladder after sex. ? Wipe from front to back after peeing or pooping if you are a female. Use each tissue one time when you wipe. ? Drink enough fluid to keep your pee pale yellow. ? Keep all follow-up visits. Contact a doctor if: ? You do not get better after 1?2 days. ? Your symptoms go away and then come back. Get help right away if: ? You have very bad back pain. ? You have very bad pain in your lower belly. ? You have a fever. ? You have chills. ? You feeling like you will vomit or you vomit. Summary ? A urinary tract infection (UTI) is an infection of any part of the urinary tract. ? This condition is caused by germs in your genital area. ? There are many risk factors for a UTI. ? Treatment includes antibiotic medicines. ? Drink enough fluid to keep your pee pale yellow. This information is not intended to replace advice given to you by your health care provider. Make sure you discuss any questions you have with your health care provider. Document Revised: 12/22/2020 Document Reviewed: 12/22/2020 [employer] Patient Education ? 2022 [employer] [facility] ED Patient Summaryon 024 ED Patient Summary (Inserted Image. Sara ble to display) [address] [address] Patient Discharge Instructions Person Information Name: MAEGAN DYE Age: 73 Years Arrival Date: 08/13/2023 19:38:56 Discharge Diagnosis: Encounter for medical screening examination Primary Care Physician: Dolly Valenzuela CNP Provider Information Primary Provider: Mati Taylor DO [employer] Vertical:None The exam and treatment you received in the Emergency Department were for an urgent problem and are not intended as complete care. It is important that you follow up with a doctor, nurse practitioner, or physician?s assistant executive housekeeper for ongoing care. If your symptoms become worse or you do not improve as expected and you are unable to reach your usual health care provider, you should return to the Emergency Department. We are available 24 hours a day. MAEGAN DYE has been given the following list of patient education materials, prescriptions and follow-up instructions: Follow-up Instructions: With: Address: When: Dolly Valenzuela [address] [facility] [address] [place] [address] Business (1) In 3 days 08/16/2023 Comments: Take the antibiotics as prescribed to complete the course. Please follow-up with your primary care doctor next 2 to 3 days for further evaluation management. Please return to ED for any new or worsening symptoms or In the event that this physician does not participate in your insurance network, please consult with your insurance company to find a nearby participating provider. Patient Education Materials: Urinary Tract Infection, Adult, Iktz-fj-Utfp A MESSAGE TO ALL PATIENTS REGARDING OPIOIDS PRESCRIPTION OPIOIDS: WHAT YOU NEED TO KNOW Prescription opioids can be used to help relieve lrpfnkjm-wl-wzffnz pain and are often prescribed following a [...] and Drug Administration (www.fda.gov/Drugs/Resourc esForYou). ? Visit w (more content not included)... [facility] Pre-Arrival Noteon Pre-Arrival Note Pre-Arrival Summary Name: maia Current Date: 08/13/2023 19:39:25 EDT Gender: Female Date of : Age: 73 Pre-Arrival Type: EMS ETA: 08/13/2023 20:01:00 EDT Primary Care Physician: Presenting Problem: low bs Pre-Arrival User: Adriane Rodriguez RN Referring Source: Location: Completion Date/Time: 08/13/2023 19:32:00 [facility] Emergency Department Pre-Hospital Report Form _ Vital Signs: Pre-Hospital Report: Treatment in Route: Response to Treatment: Misc. Issues: Normal [facility] C Urineon 08-12-2023 Bacteria identified Cx Nom (U) Microbiology PROCEDURE: Urine Culture [R1] SOURCE: U Cath BODY SITE: COLLECTED DATE/TIME: 08/10/2023 00:03 EDT RECEIVED DATE/TIME: 08/10/2023 00:33 EDT START DATE/TIME: 08/10/2023 00:33 EDT FREE TEXT SOURCE: Santiago Harrington DO, DO, Noah S. FINAL REPORTS Final Report [] Verified Date/Time: 08/12/2023 10:56 EDT 5,000 cfu/ml Mixed skin contaminants Mixed manuel (multiple species present) >3 colony types Manuel not indicative of a Cath specimen Performing Locations R1: This test was performed at: [facility], [address] [place] [address], [id number] , , [facility] Comment on above: Performed By: #### 2 [id number], [id number] #### [facility] [address] [place] [address] Consent for Treatmenton 07-24 Consent for Treatment [id number]#[id number] Normal [facility] Discharge Instructionson Discharge Instructions [id number]#[id number] Normal [facility] ED Clinical Summaryon 2023 ED Clinical Summary (Inserted Image. Sara ble to display) [address] [address] ED Clinical Summary [facility]: [facility] Age[facility] 73 Years : 1950 Sex: Female Language: Dutch PCP: Dolly Valenzuela CNP Marital Status: Phone: [phone] Visit Id: Visit Reason: Medical problem - minor; UTI POSS AMS Speciality: Acuity: 3 Enc Type: Emergency Med Service: Emergency Arrival: 08/12/2023 18:06:23 Discharge: 08/12/2023 20:27:31 LOS: 000 02:21 Checkin: 08/12/2023 18:06:23 Checkout: 08/12/2023 20:27:31 Dispo Type: Home (Routine DC) EVENTS: Event Name Event Status Request Date/Time Start Date/Time Complete Date/Time Arrive Complete 08/12/2023 18:06:23 08/12/2023 18:06:23 08/12/2023 18:06:23 Document Home Meds Request 08/12/2023 18:06:23 Triage Complete 08/12/2023 18:06:23 08/12/2023 18:14:40 08/12/2023 18:14:40 Bed Assign Complete 08/12/2023 18:06:23 08/12/2023 18:06:23 08/12/2023 18:06:23 Dr Exam Complete 08/12/2023 18:06:23 08/12/2023 19:09:55 08/12/2023 19:09:55 RN Exam Complete 08/12/2023 18:06:23 08/12/2023 18:35:04 08/12/2023 18:35:04 Isolation Screening Request 08/12/2023 18:14:41 Pending Labs Complete 08/12/2023 19:09:50 08/12/2023 20:10:13 Lab Complete 08/12/2023 19:09:50 08/12/2023 20:10:13 Urine Collect Complete 08/12/2023 19:09:50 08/12/2023 20:10:13 Registration Complete 08/12/2023 19:09:55 08/12/2023 20:13:45 08/12/2023 20:13:45 Dr Exam Complete 08/12/2023 19:10:27 08/12/2023 19:10:27 08/12/2023 19:10:27 Meds Admin Cancel 08/12/2023 19:13:13 08/12/2023 19:43:52 Discharge Complete 08/12/2023 19:19:02 08/12/2023 20:27:38 08/12/2023 20:27:38 Meds Admin Complete 08/12/2023 19:44:08 08/12/2023 19:48:32 Pending Labs Collected 08/12/2023 19:48:48 08/12/2023 19:48:48 Lab Collected 08/12/2023 19:48:48 08/12/2023 19:48:48 Reg Complete Request 08/12/2023 20:13:45 Reg Bed Request Complete 08/12/2023 20:13:45 08/12/2023 20:13:45 08/12/2023 20:13:45 Transfer Complete 08/12/2023 20:27:38 08/12/2023 20:27:38 08/12/2023 20:27:38 ADDRESS: [facility] [address] [facility] [id number] PHYS DOC NOTES: MEDICAL INFORMATION: Prescriptions Given: Medications to Continue with No Changes Other Medications amlodipine (amLODIPine 5 mg Tab) 1 Tablets By Mouth every day. TAKE 1 TABLET BY MOUTH EVERY DAY. celecoxib (celecoxib 200 mg Cap) TAKE 1 CAPSULE BY MOUTH EVERY DAY. cephalexin (Keflex 500 mg Cap) 1 Capsules By Mouth every 12 hours for 7 Days. Refills: 0. cimetidine (cimetidine 300 mg oral tablet) 2 Tablets By Mouth 3 times a day. Refills: 5. ciprofloxacin (Cipro 250 mg Tab) 1 Tablets By Mouth every 12 hours for 7 Days. Refills: 0. citalopram (citalopram 20 mg Tab) TAKE 1 TABLET BY MOUTH EVERY DAY. clonazepam (clonazepam 1 mg Tab) TAKE 1 TABLET BY MOUTH THREE TIMES A DAY NEEDED FOR ANXIETY. cyanocobalamin (cyanocobalamin 1000 mcg/mL Inj) 1 Milliliter Intramuscular once a month. Refills: 1. docusate (Colace 100 mg Cap) 1 Capsules By Mouth 2 times a day. Hold for diarrhea. Refills: 0. Ensure (Ensure Vanilla) Drink 1 bottle (8 fl. oz.) BID. Refills: 5. ferrous sulfate (ferrous sulfate 325 mg Tab) 1 Tablets By Mouth 3 times a day. Refills: 0. fluticasone nasal (fluticasone 0.05 mg/inh Nasal Mulberry) 2 Sprays Nasal Inhalation every day. each nostril. Refills: 5. lisinopril (lisinopril 20 mg Tab) 1 Tablets By Mouth every day. Refills: 1. Misc Prescription (Straight Catheters & Supplies) Use daily, as directed.. Refills: 5. Misc Prescription (walking boot) right foot knee high walking Size small boot dx m21.969, m14.679 Fax to [facility]. Refills: 0. multivitamin with minerals (Therapeutic Multiple Vitamins with Minerals Tab) By Mouth every day. mupirocin topical (mupirocin Top 2% Oint) 1 Application Topical 3 times a day. Refills: 0. ondansetron (ondansetron [...] bedtime) as needed for constipation. Refills: 1. trazodone (traZODONE 150 mg Tab) 1 Tablets By Mouth once a day (at bedtime). Do not give with clonazepam. Refills: 3. PATIENT EDUCATION INFORMATION: Instructions: Urinary Tract Infection, Adult, Hfsz-ox-Ucak Follow up: With: Address: When: Dolly Valenzuela [address] [place] [address], [facility], [address] [place] [phone] Business (1) In 3 days 08/15/2023 DIAGNOSIS: 1:Acute lower UTI (urinary tract infection) Normal [facility] ED Note-Physicianon 08-12-19 ED Note-Physician Basic Information Time Seen: Deborah Talavera PA-C 08/12/2023 19:09 Chief Complaint pt. presents with chronic choi cath from home, with c/o possible UTI with no improvement. states she is currently on antibiotics. History of Present Illness This patient presents emergency department chief complaint of urinary tract infection. She states she has an indwelling Choi. She believes she has a urinary tract infection. She denies any fevers chills or sweats. She denies any nausea or vomiting. She denies any difficulty breathing. She denies any constipation or diarrhea. The patient also complains that her son drinks alcohol in her house and he has a lot of bums living there. Review of Systems Constitutional: Denies weight loss, fevers, chills, sweats, malaise Eyes: Denies visual changes, eye pain, double vision, scotomas, floaters ENT: Denies runny nose, epistaxis, sinus pain, ear pain, ringing in ears, tooth ache, sore throat, pain with swallowing Cardiovascular: Denies chest pain, shortness of breath, orthopnea, edema, palpitations, loss of consciousness, claudication Respiratory: Denies cough, sputum production, wheezing, hemoptysis, shortness of breath, dyspnea on exertion Gastrointestinal: Denies abdominal pain, unintentional weight loss, difficulty swallowing, indigestion, bloating, cramping, loss of appetite, nausea, vomiting, diarrhea, constipation, hematochezia, melena Genitourinary: Denies any incontinence of urine, dysuria, hematuria, nocturia, polyuria, hesitancy, frequency, urgency. + burning etal: Denies joint pain, morning stiffness, joint swelling, decreased range of motion, crepitus Integumentary: Denies any pruritus, rashes, lesions, wounds, petechiae Neurologic: Denies any changes in sight, smell, hearing, taste, seizures, headache, paresthesia, numbness, weakness, balance disturbance Psychiatric denies any depression, change in sleep patterns, anxiety, difficulty concentrating, paranoia, anhedonia, lack of energy, florentin Hematologic/lymphatic: Denies any purpura, petechiae, excessive bleeding, bruising Physical Exam Vitals & Measurements T: 36.7 ?C(Oral) HR: 65(Monitored) RR: 18 BP: 135/71 SpO2: 95% HT: 162 cm WT: 64.4 kg BMI: 24.54 Vital signs and nursing notes reviewed. General: Awake, alert, NAD. HEENT: Head is normocephalic, atraumatic. PERRL. EOMI. Sclerae are anicteric. External ears are normal. TMs are intact bilaterally. Canals are clear bilaterally. Nares are patent bilaterally. Oral mucosa is pink and moist. No lesions noted. Tongue protrudes in midline. Uvula rises with phonation. Neck is supple, no no palpable adenopathy. No JVD. Trachea is midline. Thorax: Symmetrical rise and fall Lungs: Clear to auscultation throughout all cutler, no wheezes, no crackles Heart: Regular rate and rhythm. No murmur, gallop, or rub Abdomen: No tenderness on palpation. Bowel sounds are present active and normal. No organomegaly. No palpable masses. No CVA tenderness.. + indwelling choi draining yellow urine extremities. No lower extremity edema. Skin: No lesions, rashes, ulcerations. No bruising or petechiae. Color appropriate, warm and dry Neuro: No oriented x3, no focal neuro deficits Psych: Mood and affect are normal Medical Decision Making MEDICAL DECISION MAKING Number and Complexity of Problems Differential Diagnosis: Acute lower urinary tract infection, indwelling Choi catheter MDM Data External documents reviewed: Not applicable My EKG interpretation: Noted in chart if applicable My CT interpretation: Noted in chart if applicable My X-ray interpretation: Noted in chart if applicable My Ultrasound interpretation: Not applicable Decision rules/scores evaluated: Noted in chart if applicable Discussed with: Not applicable Treatment and Disposition ED Course: Patient was interviewed and examined. The patient was given 1 dose of Cipro 400 mg IV piggyback. I reviewed patient's most recent urine cultures. Her urine culture from 08/09/2022 had no growth. I discussed the discharge diagnosis, plan of care, home-going instructions with the patient. The patient was discharged home in stable condition. She should follow-up with her primary care physician. She is to return to the emergency department for any further problems or concerns. Shared decision making: I discussed the discharge diagnosis and plan of care with the patient. She is in agreement with plan of care. Code status: Not applicable Assessment/Plan 1. Acute lower UTI (urinary tract infection) (N39.0: Urinary tract infection, site not specified) Orders: UA With Cult Reflex Urine Culture Medications Administered Given Cipro 500 mg Tab, 500 mg, Oral Disposition Plan Patient Discharge Condition Stable Discharge Disposition Home Discharge Prescription List Prescriptions No active prescription medications Follow-up With When Contact Information Dolly Valenzuela In 3 days 08/15/[address] [place] [address] (more content not included)... Normal [facility] Comment on above: Result Comment: Elec tronically Signed By: Deborah Talavera PA-C\.br\Date and Time Signed: 08/12/23 21:34 EDT\.br\Electronically Co-Signed By: Mati Taylor DO\.br\Date and Time Co-Signed: 08/12/23 23:03 EDT ED Patient Education Noteon 08-12-2023 ED Patient Education Note Obstetrics and Gynecology Urinary Tract Infection, Adult A urinary tract infection (UTI) is an infection of any part of the urinary tract. The urinary tract includes: ? The kidneys. ? The ureters. ? The bladder. ? The urethra. These organs make, store, and get rid of pee (urine) in the body. What are the causes? This infection is caused by germs (bacteria) in your genital area. These germs grow and cause swelling (inflammation) of your urinary tract. What increases the risk? The following factors may make you more likely to develop this condition: ? Using a small, thin tube (catheter) to drain pee. ? Not being able to control when you pee or poop (incontinence). ? Being female. If you are female, these things can increase the risk: ? Using these methods to prevent : ? A medicine that kills sperm (spermicide). ? A device that blocks sperm (diaphragm). ? Having low levels of a female hormone (estrogen). ? Being . You are more likely to develop this condition if: ? You have genes that add to your risk. ? You are sexually active. ? You take antibiotic medicines. ? You have trouble peeing because of: ? A prostate that is bigger than normal, if you are male. ? A blockage in the part of your body that drains pee from the bladder. ? A kidney stone. ? A nerve condition that affects your bladder. ? Not getting enough to drink. ? Not peeing often enough. ? You have other conditions, such as: ? Diabetes. ? A weak disease-fighting system (immune system). ? Sickle cell disease. ? Gout. ? Injury of the spine. What are the signs or symptoms? Symptoms of this condition include: ? Needing to pee right away. ? Peeing small amounts often. ? Pain or burning when peeing. ? Blood in the pee. ? Pee that smells bad or not like normal. ? Trouble peeing. ? Pee that is cloudy. ? Fluid coming from the vagina, if you are female. ? Pain in the belly or lower back. Other symptoms include: ? Vomiting. ? Not feeling hungry. ? Feeling mixed up (confused). This may be the first symptom in older adults. ? Being tired and grouchy (irritable). ? A fever. ? Watery poop (diarrhea). How is this treated? ? Taking antibiotic medicine. ? Taking other medicines. ? Drinking enough water. In some cases, you may need to see a specialist. Follow these instructions at home: Medicines ? Take zzpc-xda-slhbiea and prescription medicines only as told by your doctor. ? If you were prescribed an antibiotic medicine, take it as told by your doctor. Do not stop taking it even if you start to feel better. General instructions ? Make sure you: ? Pee until your bladder is empty. ? Do not hold pee for a long time. ? Empty your bladder after sex. ? Wipe from front to back after peeing or pooping if you are a female. Use each tissue one time when you wipe. ? Drink enough fluid to keep your pee pale yellow. ? Keep all follow-up visits. Contact a doctor if: ? You do not get better after 1?2 days. ? Your symptoms go away and then come back. Get help right away if: ? You have very bad back pain. ? You have very bad pain in your lower belly. ? You have a fever. ? You have chills. ? You feeling like you will vomit or you vomit. Summary ? A urinary tract infection (UTI) is an infection of any part of the urinary tract. ? This condition is caused by germs in your genital area. ? There are many risk factors for a UTI. ? Treatment includes antibiotic medicines. ? Drink enough fluid to keep your pee pale yellow. This information is not intended to replace advice given to you by your health care provider. Make sure you discuss any questions you have with your health care provider. Document Revised: 12/22/2020 Document Reviewed: 12/22/2020 [email or web address] Patient Education ? 2022 [employer]. Normal [facility] ED Patient Summaryon 024 ED Patient Summary (Inserted Image. Sara ble to display) [place] [address] Patient Discharge Instructions Person Information Name: MAEGAN DYE Age: 73 Years Arrival Date: 08/12/2023 18:06:23 Discharge Diagnosis: 1:Acute lower UTI (urinary tract infection) Primary Care Physician: Dolly Valenzuela CNP Provider Information Primary Provider: Mati Taylor DO [employer] Set Up Operator Vertical:None The exam and treatment you received in the Emergency Department were for an urgent problem and are not intended as complete care. It is important that you follow up with a doctor, nurse practitioner, or physician?s assistant executive housekeeper for ongoing care. If your symptoms become worse or you do not improve as expected and you are unable to reach your usual health care provider, you should return to the Emergency Department. We are available 24 hours a day. MAEGAN DYE has been given the following list of patient education materials, prescriptions and follow-up instructions: Follow-up Instructions: With: Address: When: Dolly Valenzuela [address] [place] [address], [address] [place] [phone] [employer] (1) In 3 days 08/15/2023 In the event that this physician does not participate in your insurance network, please consult with your insurance company to find a nearby participating provider. Patient Education Materials: Urinary Tract Infection, Adult, Rbyl-kc-Wdhm A MESSAGE TO ALL PATIENTS REGARDING OPIOIDS PRESCRIPTION OPIOIDS: WHAT YOU NEED TO KNOW Prescription opioids can be used to help relieve zzktbznq-zl-yfxenz pain and are often prescribed following a [...] be struggling with addiction, tell your health health care aide and ask for guidance or call [facility]?S National Helpline a (more content not included)... Normal [facility] Pre-Arrival Noteon Pre-Arrival Note Pre-Arrival Summary Name: , [place] [facility] Current Date: 08/12/2023 18:07:08 EDT Gender: Female Date of : Age: 73 Pre-Arrival Type: EMS ETA: 08/12/2023 18:30:00 EDT Primary Care Physician: Presenting Problem: UTI Pre-Arrival User: Mar Russell RN Referring Source: Location: [place] Completion Date/Time: 08/12/2023 18:00:00 [facility] Emergency Department Pre-Hospital Report Form _ Vital Signs: Pre-Hospital Report: Treatment in Route: Response to Treatment: Misc. Issues: Normal [facility] UA With Cult Reflexon 2023 Bacteria LM Ql (Urine sed) TRACE Normal Trace [facility] Comment on above: Performed By: #### 2 [id number], [id number] #### [facility] [address] [place] [address] Bilirubin Ql (U) Negative Normal Negative [facility] Comment on above: Performed By: #### 2 [id number], [id number] #### [facility] [address] [place] [address] Clarity (U) CLEAR Normal Clear [facility] Comment on above: Performed By: #### 2 [id number], [id number] #### [facility] [address] [place] [address] Color (U) YELLOW Normal Yellow [facility] Comment on above: Performed By: #### 2 [id number], [id number] #### [facility] [address] [place] [address] Epithelial cells.squamous LM.HPF (Urine sed) [#/Area] 0-2 Normal 0-2 [facility] Comment on above: Performed By: #### 2 [id number], [id number] #### [facility] [address] [place] [address] Glucose Test strip (U) [Mass/Vol] Negative Normal Negative [facility] Comment on above: Performed By: #### 2 [id number], [id number] #### [facility] [address] [place] [address] Hemoglobin Ql (U) Negative Normal Negative [facility] Comment on above: Performed By: #### 2 [id number], [id number] #### [facility] [address] [place] [address] Ketones (U) [Mass/Vol] Negative Normal Negative [facility] Comment on above: Performed By: #### 2 [id number], [id number] #### [facility] [address] [place] [address] [place].plasma/[place] .RBC (Bld) [Mass ratio] 0-3 Normal 0-3 [facility] Comment on above: Performed By: #### 2 925311, [id number] #### [facility] [address] [place] [address] Nitrite Ql (U) Negative Normal Negative [facility] Comment on above: Performed By: #### 2 166724, [id number] #### [facility] [address] [place] [address] pH (U) 8.0 [pH] Invalid Interpretation Code 5.0-9.0 [facility] Comment on above: Performed By: #### 2 515262, [id number] #### [facility] [address] [place] [address] Protein (U) [Mass/Vol] TRACE Abnormal Negative [facility] Comment on above: Performed By: #### 2 794731, [id number] #### [facility] [address] [place] [address] Specific gravity (U) [Rel density] 1.020 Invalid Interpretation Code 1.005-1.03 0 [facility] Comment on above: Performed By: #### 2 [id number], [id number] #### [facility] [address] [place] [address] Type of Urine collection method Choi Normal [facility] Comment on above: Performed By: #### 2 [id number], [id number] #### [facility] [address] [place] [address] Urobilinogen Qn (U) 0.2 {Rolan'U}/dL Normal 0.0-1.0 [facility] Comment on above: Performed By: #### 2 898668, [id number] #### [facility] [address] [place] [address] WBC Auto Ql (U) 1+ Abnormal Negative [facility] Comment on above: Performed By: #### 2 505566, [id number] #### [facility] [address] [place] [address] WBC LM.HPF (Urine sed) [#/Area] 6-15 Abnormal 0-5 [facility] Comment on above: Performed By: #### 2 975226, [id number] #### [facility] [address] [place] [address] URINALYSISOrdered By: Luis Trotter on 08-12-2023 Bacteria [...] PM) Normal Negative [facility] UA Auto SS [place].plasma/[place] .RBC (Bld) [Mass ratio] 0-3 /HPF Normal [...] [facility] UA Auto SS UA Spec Desc Choi (08/12/23 7:41 PM) Normal [facility] UA Auto SS Urobilinogen Qn (U) 0.8300805 {Rolan'U}/dL Normal 0.0 - 1.0 EU/dL [facility] UA Auto SS WBC Auto Ql (U) 1+ *ABN* (08/12/23 7:41 PM) Invalid Interpretation Code Negative [facility] UA Auto SS WBC LM.HPF (Urine sed) [#/Area] 6-15 /HPF Invalid Interpretation Code 0-5/HPF [facility] UA Auto SS BMPon 08-10-2023 Anion gap [Moles/Vol] 10 mmol/L Normal 6-16 [facility] Comment on above: Performed By: #### 2 570535, [id number] #### [facility] [address] [place] [address] Calcium [Mass/Vol] 9.1 mg/dL Normal 8.9-11.1 [facility] Comment on above: Performed By: #### 2 660445, [id number] #### [facility] [address] [place] [address] Chloride [Moles/Vol] 104 mmol/L Normal 101-111 [facility] Comment on above: Performed By: #### 2 455600, [id number] #### [facility] [address] [place] [address] CO2 [Moles/Vol] 30 mmol/L Normal 21-31 [facility] Comment on above: Performed By: #### 2 817117, [id number] #### [facility] [address] [place] [address] Creatinine [Mass/Vol] 1.1 mg/dL Normal 0.5-1.3 [facility] Comment on above: Performed By: #### 2 737575, [id number] #### [facility] [address] [place] [address] Glucose [Mass/Vol] 129 mg/dL Normal 55-199 [facility] Comment on above: Performed By: #### 2 885118, [id number] #### [facility] [address] [place] [address] Potassium [Moles/Vol] 3.2 mmol/L Low 3.5-5.3 [facility] Comment on above: Performed By: #### 2 798564, [id number] #### [facility] [address] [place] [address] Sodium [Moles/Vol] 141 mmol/L Normal 135-145 [facility] Comment on above: Performed By: #### 2 985870, [id number] #### [facility] [address] [place] [address] Urea nitrogen [Mass/Vol] 6 mg/dL Normal 5-21 [facility] Comment on above: Performed By: #### 2 744801, [id number] #### [facility] [address] [place] [address] Urea nitrogen/Creatinine [Mass ratio] 6 No Units Low 10-20 [facility] Comment on above: Performed By: #### 2 657619, [id number] #### [facility] [address] [place] [address] C Urineon 08-10-2023 Bacteria identified Cx Nom (U) Microbiology PROCEDURE: Urine Culture [R1] SOURCE: U CleanCatch BODY SITE: COLLECTED DATE/TIME: 08/07/2023 15:48 EDT RECEIVED DATE/TIME: 08/07/2023 16:27 EDT START DATE/TIME: 08/07/2023 16:27 EDT FREE TEXT SOURCE: SYSTEM, SYSTEM SYSTEM, SYSTEM FINAL REPORTS Final Report [] Verified Date/Time: 08/10/2023 09:07 EDT >100,000 cfu/ml Proteus penneri 25,000 cfu/ml Enterococcus faecalis SUSCEPTIBILITY RESULTS _ LEGEND: S=Susceptible, N/R=Not Reported, Blank=Data not available, or drug not advisable or tested, I=Intermediate, ESBL=Extended spectrum beta-lactamase, R=Resistant, TFG=Thymidine-dependent strain, ANAY=Beta-lactamase positive, REINALDO=mcg/m;(mg/L), S*=Predicted susceptible interp, R*=Predicted resistant interp Propen Entfaeca Antibiotic REINALDO Dilutn REINALDO Interp REINALDO Dilutn REINALDO Interp Amikacin <=16 S Ampicillin >16 R <=2 S Ampicillin/ 16/8 I Sulbactam Aztreonam <=4 S Cefazolin >16 R Cefepime <=2 S Cefoxitin <=8 S Ceftazidime <=1 S Ceftriaxone >32 R Ciprofloxacin <=1 S <=1 S Daptomycin <=1 S Ertapenem <=0.5 S Gentamicin <=4 S Levofloxacin <=2 S <=1 S Linezolid <=2 S Meropenem <=1 S Nitrofurantoin >64 R <=32 S Penicillin 2 S Piperacillin/ <=16 S Tazobactam Rifampin >2 R Tetracycline <=4 R* >8 R Tigecycline <=2 R* Tobramycin <=4 S Trimethoprim/ <=2/38 S Sulfa Vancomycin 1 S Performing Locations R1: This test was performed at: [facility], [address] [place] [address], [address] , , [facility] Comment on above: Performed By: #### 2 [id number], [id number] #### [facility] [address] [place] [address] Discharge Instructionson Discharge Instructions [id number] Normal [facility] ED Clinical Summaryon 2023 ED Clinical Summary (Inserted Image. Sara ble to display) [address] [address] ED Clinical Summary Person Information Name: MAEGAN DYE/New_Srikanth Age: 73 Years : 1950 Sex: Female Language: Dutch PCP: Dolly Valenzuela CNP Marital Status: Phone: [phone] Visit Id: Visit Reason: Medical problem reevaluation; CATHETER ISSUE Speciality: Acuity: 4 Enc Type: Emergency Med Service: Emergency Arrival: 08/09/2023 22:55:25 Discharge: 08/10/2023 00:54:51 LOS: 000 01:59 Checkin: 08/09/2023 22:55:25 Checkout: 08/10/2023 00:54:51 Dispo Type: Home (Routine DC) EVENTS: Event Name Event Status Request Date/Time Start Date/Time Complete Date/Time Arrive Complete 08/09/2023 22:55:25 08/09/2023 22:55:25 08/09/2023 22:55:25 Document Home Meds Request 08/09/2023 22:55:25 Triage Complete 08/09/2023 22:55:25 08/09/2023 23:21:37 08/09/2023 23:21:37 Bed Assign Complete 08/09/2023 22:55:25 08/09/2023 22:55:25 08/09/2023 22:55:25 Dr Exam Complete 08/09/2023 22:55:25 08/09/2023 22:55:59 08/09/2023 22:55:59 RN Exam Complete 08/09/2023 22:55:25 08/10/2023 00:24:59 08/10/2023 00:24:59 Registration Request 08/09/2023 22:55:59 Pending Labs Complete 08/09/2023 22:57:09 08/10/2023 00:14:50 Lab Complete 08/09/2023 22:57:09 08/10/2023 00:14:50 Patient Care Request 08/09/2023 22:57:09 Isolation Screening Request 08/09/2023 23:21:38 Pending Labs Complete 08/09/2023 23:53:20 08/09/2023 23:53:20 08/10/2023 00:14:50 Lab Complete 08/09/2023 23:53:20 08/09/2023 23:53:20 08/10/2023 00:14:50 Pending Labs Complete 08/10/2023 00:01:02 08/10/2023 00:28:52 Lab Complete 08/10/2023 00:01:02 08/10/2023 00:28:52 Urine Collect Complete 08/10/2023 00:01:02 08/10/2023 00:28:52 Pending Labs Inlab 08/10/2023 00:09:43 08/10/2023 00:09:43 Lab Inlab 08/10/2023 00:09:43 08/10/2023 00:09:43 Meds Admin Complete 08/10/2023 00:32:07 08/10/2023 00:44:18 Discharge Complete 08/10/2023 00:32:55 08/10/2023 00:55:01 08/10/2023 00:55:01 Meds Admin Complete 08/10/2023 00:34:09 08/10/2023 00:44:18 Transfer Complete 08/10/2023 00:55:01 08/10/2023 00:55:01 08/10/2023 00:55:01 ADDRESS: [address] [place] [address] [address] [facility] [phone] PHYS DOC NOTES: MEDICAL INFORMATION: Prescriptions Given: New Medications [facility]/pharmacy #[id number], [address] [place], [place] [id number], [phone] cephalexin (Keflex 500 mg Cap) 1 Capsules By Mouth every 12 hours for 7 Days. Refills: 0. Medications to Continue with No Changes Other Medications amlodipine (amLODIPine 5 mg Tab) 1 Tablets By Mouth every day. TAKE 1 TABLET BY MOUTH EVERY DAY. celecoxib (celecoxib 200 mg Cap) TAKE 1 CAPSULE BY MOUTH EVERY DAY. cimetidine (cimetidine 300 mg oral tablet) 2 Tablets By Mouth 3 times a day. Refills: 5. citalopram (citalopram 20 mg Tab) TAKE 1 TABLET BY MOUTH EVERY DAY. clonazepam (clonazepam 1 mg Tab) TAKE 1 TABLET BY MOUTH THREE TIMES A DAY NEEDED FOR ANXIETY. cyanocobalamin (cyanocobalamin 1000 mcg/mL Inj) 1 Milliliter Intramuscular once a month. Refills: 1. docusate (Colace 100 mg Cap) 1 Capsules By Mouth 2 times a day. Hold for diarrhea. Refills: 0. Ensure (Ensure Vanilla) Drink 1 bottle (8 fl. oz.) BID. Refills: 5. ferrous sulfate (ferrous sulfate 325 mg Tab) 1 Tablets By Mouth 3 times a day. Refills: 0. fluticasone nasal (fluticasone 0.05 mg/inh Nasal [place]) 2 Sprays Nasal Inhalation every day. each nostril. Refills: 5. lisinopril (lisinopril 20 mg Tab) 1 Tablets By Mouth every day. Refills: 1. Misc Prescription (Straight Catheters & Supplies) Use daily, as directed.. Refills: 5. Misc Prescription (walking boot) right foot knee high walking Size small boot dx m21.969, m14.679 Fax to [facility]. Refills: 0. multivitamin with minerals (Therapeutic Multiple Vitamins with Minerals Tab) By Mouth every day. mupirocin topical (mupirocin Top 2% Oint) 1 Application Topical 3 times a day. Refills: 0. ondansetron (ondansetron [...] bedtime) as needed for constipation. Refills: 1. trazodone (traZODONE 150 mg Tab) 1 Tablets By Mouth once a day (at bedtime). Do not give with clonazepam. Refills: 3. PATIENT EDUCATION INFORMATION: Instructions: Urinary Tract Infection, Adult Follow up: With: Address: When: Dolly Valenzuela [address] [place] [address], [facility], [address] [place] [phone] Business (1) In 3 days DIAGNOSIS: Acute UTI Normal [facility] ED Note-Physicianon 08-10-19 ED Note-Physician Basic Information Time Seen: Santiago Harrington DOKaran 08/09/2023 22:56 History of Present Illness HPI: Patient is a 73-year-old female with past medical history of bipolar, COPD, CKD, hyperlipidemia, hypertension, hyponatremia, sleep apnea, SIADH, asthma presents the ED for urinary retention. Patient states that she recently had a urinary catheter in place for chronic urine retention and it became dislodged just over 1 day ago. Since then she has had almost no urine output. She states that she does have some left lower abdominal discomfort with this. She denies any fevers or chills today. She denies any nausea vomiting or diarrhea. ROS: Pertinent review of systems conducted and is negative except as noted above. Physical exam: General: nontoxic appearing and in no distress HEENT: Mucous membranes moist Neuro: awake and alert Neck: supple, trachea midline Card: Heart regular rate and rhythm no murmur Resp: Lungs clear to auscultation no wheeze or rhonchi Abd: Soft and nondistended. Mild left lower quadrant tenderness without rebound or guarding. Ext: No gross deformity or edema Medical Decision Making MEDICAL DECISION MAKING Number and Complexity of Problems Differential Diagnosis: [] [facility] Data External documents reviewed: N/A My EKG interpretation: Noted in chart if applicable My CT interpretation: N/A My X-ray interpretation: Noted in chart if applicable My Ultrasound interpretation: N/A Decision rules/scores evaluated: N/A Discussed with: N/A Treatment and Disposition ED Course: She is nontoxic-appearing in no distress. She feels like she has to urinate but is having trouble and has a history of urinary retention for which a Choi that she states came out at home. Blood work and urinalysis were obtained and she was able to give us a small amount of urine but did not feel that she can completely empty her bladder. A Choi catheter was then placed. Urine does show signs of possible UTI so we will start her on oral Keflex for this. Potassium is mildly low so we will give her oral repletion. Will have her follow-up with her primary care physician on an outpatient basis. Shared decision making: As above Code status: N/A Assessment/Plan Acute UTI (N39.0: Urinary tract infection, site not specified) Orders: cephalexin, 500 mg = 1 cap(s), Oral, q12hr, X 7 day(s), # 14 cap(s), Refills(s) 0, Pharmacy: [facility]/pharmacy #[id number], 155, cm, 08/09/23 23:21:00 EDT, Height/Length Dosing, 67.6, kg, 08/09/23 23:21:00 EDT, Weight Dosing cephalexin, 500 mg = 1 cap(s), Cap, Oral, Once, Stop date 08/10/23 0:31:00 EDT, STAT, Start date 08/10/23 0:31:00 EDT, 08/10/23 0:31:00 EDT Basic Metabolic Panel Bladder Scan CBC w/ Auto Diff eGFR Hepatic Function Panel Lipase Level UA With Cult Reflex Urine Culture Disposition Plan Discharge Prescription List Prescriptions Keflex 500 mg Cap, 500 mg= 1 cap(s), Oral, q12hr Follow-up With When Contact Information Dolly Valenzuela In 3 days [address] [facility], [address] [place] [address]- Business (1) Additional Instructions: Patient Education Urinary Tract Infection, Adult Problem List/Past Medical History Ongoing Acute UTI [...] Vitamin D deficiency Historical Accidental fall Agent [place] ASTHMA Benzodiazepine withdrawal Bipolar disorder Callus of [...] HTN - Hypertension Hypertension Hypo-osmolality and or hyponatremia Hypokalemia Laryngitis Left hip pain multiple broken bones Neurogenic bladder Obesity Obesity due to excess calories Oral thrush Panic disorder with agoraphobia Physical deconditioning Right foot pain Seizure Smoker Procedure/Surgical History Urodynamics (07/06/2019), cysto w/ UD (07/05/2019), left femur ORIF w femoral cortical strut graft (10/04/2016), lt bipolar hemiart (more content not included)... Normal [facility] Comment on above: Result Comment: Elec tronically Signed By: Santiago Harrington DO\.br\Date and Time Signed: 08/10/23 00:34 EDT ED Patient Education Noteon 08-10-2023 ED Patient Education Note Obstetrics and Gynecology Urinary Tract Infection, Adult A urinary tract infection (UTI) is an infection of any part of the urinary tract. The urinary tract includes the kidneys, ureters, bladder, and urethra. These organs make, store, and get rid of urine in the body. An upper UTI affects the [...] more likely to develop this condition if: ? You have a urinary catheter that stays in place. ? You are not able to control when you urinate or have a bowel movement (incontinence). ? You are female and you: ? Use a spermicide or diaphragm for control. ? Have low estrogen levels. ? Are . ? You have certain genes that increase your risk. ? You are sexually active. ? You take antibiotic medicines. ? You have a condition that causes your flow of urine to slow down, such as: ? An enlarged prostate, if you are male. ? Blockage in your urethra. ? A kidney stone. ? A nerve condition that affects your bladder control (neurogenic bladder). ? Not getting enough to drink, or not urinating often. ? You have certain medical conditions, such as: ? Diabetes. ? A weak disease-fighting system (immunesystem). ? Sickle cell disease. ? Gout. ? Spinal cord injury. What are the signs or symptoms? Symptoms of this condition include: ? Needing to urinate right away (urgency). ? Frequent urination. This may include small amounts of urine each time you urinate. ? Pain or burning with urination. ? Blood in the urine. ? Urine that smells bad or unusual. ? Trouble urinating. ? Cloudy urine. ? Vaginal discharge, if you are female. ? Pain in the abdomen or the lower back. You may also have: ? Vomiting or a decreased appetite. ? Confusion. ? Irritability or tiredness. ? A fever or chills. ? Diarrhea. The first symptom in older adults may be confusion. In some cases, they may not have any symptoms until the infection has worsened. How is this diagnosed? This condition is diagnosed based on your medical history and a physical exam. You may also have other tests, including: ? Urine tests. ? Blood tests. ? Tests for STIs (sexually transmitted infections). If you have had more than one UTI, a cystoscopy or imaging studies may be done to determine the cause of the infections. How is this treated? Treatment for this condition includes: ? Antibiotic medicine. ? Wkaa-jnq-oajzdrf medicines to treat discomfort. ? Drinking enough water to stay hydrated. If you have frequent infections or have other conditions such as a kidney stone, you may need to see a health care provider who specializes in the urinary tract (urologist). In rare cases, urinary tract infections can cause sepsis. Sepsis is a life-threatening condition that occurs when the body responds to an infection. Sepsis is treated in the hospital with IV antibiotics, fluids, and other medicines. Follow these instructions at home: Medicines ? Take zbty-dpg-yixbskz and prescription medicines only as told by your health care provider. ? If you were prescribed an antibiotic medicine, take it as told by your health care provider. Do not stop using the antibiotic even if you start to feel better. General instructions ? Make sure you: ? Empty your bladder often and completely. Do not hold urine for long periods of time. ? Empty your bladder after sex. ? Wipe from front to back after urinating or having a bowel movement if you are female. Use each tissue only one time when you wipe. ? Drink enough fluid to keep your urine pale yellow. ? Keep all follow-up visits. This is important. Contact a health care provider if: ? Your symptoms do not get better after 1?2 days. ? Your symptoms go away and then return. Get help right away if: ? You have severe pain in your back or your lower abdomen. ? You have a fever or chills. ? You have nausea or vomiting. Summary ? A urinary tract infection (UTI) is an infection of any part of the urinary tract, which includes the kidneys, ureters, bladder, and urethra. ? Most urinary tract infections are caused by bacteria in your genital area. ? Treatment for this condition often includes antibiotic medicines. ? If you were prescribed an antibiotic medicine, take it as told by your health care provider. Do not stop using the antibiotic even if you start to feel better. ? Keep all follow-up visits. This is important. This information is not intended to replace advice given to you by your health care provider. Make sure you discuss any questions you have with your health care provider. Document Revised: 12/22/2020 Document Revie (more content not included)... Normal [facility] ED Patient Summaryon 024 ED Patient Summary (Inserted Image. Sara ble to display) [place] [id number] Patient Discharge Instructions Person Information Name: MAEGAN DYE Age: 73 Years Arrival Date: 08/09/2023 22:55:25 Discharge Diagnosis: Acute UTI Primary Care Physician: Dolly Valenzuela CNP Provider Information Primary Provider: Santiago Harrington DO [employer] Set Up Operator Vertical:None The exam and treatment you received in the Emergency Department were for an urgent problem and are not intended as complete care. It is important that you follow up with a doctor, nurse practitioner, or physician?s assistant executive housekeeper for ongoing care. If your symptoms become worse or you do not improve as expected and you are unable to reach your usual health care provider, you should return to the Emergency Department. We are available 24 hours a day. MARNIE MAEGAN has been given the following list of patient education materials, prescriptions and follow-up instructions: Follow-up Instructions: With: Address: When: Dolly Valenzuela [address] [place] [address], [address] [place], [place] [id number] Business (1) In 3 days In the event that this physician does not participate in your insurance network, please consult with your insurance company to find a nearby participating provider. Patient Education Materials: Urinary Tract Infection, Adult A MESSAGE TO ALL PATIENTS REGARDING OPIOIDS PRESCRIPTION OPIOIDS: WHAT YOU NEED TO KNOW Prescription opioids can be used to help relieve rvcuqndb-eu-kifkpe pain and are often prescribed following a [...] be struggling with addiction, tell your health health care aide and ask for guidance or call [facility] National Helpline at 0-335-059-UBOR. y Source: [place] Department of Health (more content not included)... Normal [facility] Hep Func Panelon 08-10-2023 Albumin [Mass/Vol] 4.3 g/dL Normal 3.3-5.0 [facility] Comment on above: Performed By: #### 2 [id number], [id number] #### [facility] [address] [place] [address] Albumin/Globulin (S) [Mass conc ratio] 2.0 Normal 1.1-2.2 [facility] Comment on above: Performed By: #### 2 [id number], [id number] #### [facility] [address] [place] [address] ALP [Catalytic activity/Vol] 93 Int._Unit/L Normal 21-98 [facility] Comment on above: Performed By: #### 2 693640, [id number] #### [facility] [address] [place] [address] ALT No additional P-5'-P [Catalytic activity/Vol] 12 Int._Unit/L Normal 6-46 [facility] Comment on above: Performed By: #### 2 [id number], [id number] #### [facility] [address] [place] [address] AST [Catalytic activity/Vol] 25 Int._Unit/L Normal 5-43 [facility] Comment on above: Performed By: #### 2 590735, [id number] #### [facility] [address] [place] [address] Bilirubin [Mass/Vol] 0.3 mg/dL Normal 0.0-1.1 [facility] Comment on above: Performed By: #### 2 114421, [id number] #### [facility] [address] [place] [address] Bilirubin.direct [Mass/Vol] 0.1 mg/dL Normal 0.0-0.4 [facility] Comment on above: Performed By: #### 2 814958, [id number] #### [facility] [address] [place] [address] Bilirubin.indirect [Mass or moles/Vol] 0.2 mg/dL Normal 0.1-0.9 [facility] Comment on above: Performed By: #### 2 099885, [id number] #### [facility] [address] [place] [address] Globulin (S) [Mass/Vol] 2.2 g/dL Normal 1.4-4.0 [facility] Comment on above: Performed By: #### 2 209075, [id number] #### [facility] [address] [place] [address] Protein [Mass/Vol] 6.5 g/dL Normal 6.0-7.8 [facility] Comment on above: Performed By: #### 2 175961, [id number] #### [facility] [address] [place] [address] Lipase Levelon 08-10-2023 Lipase [Catalytic activity/Vol] 12 U/L Low 13-58 [facility] Comment on above: Performed By: #### 2 776888, [id number] #### [facility] [address] [place] [address] UA With Cult Reflexon 2023 Bacteria LM Ql (Urine sed) TRACE Normal Trace [facility] Comment on above: Performed By: #### 2 861550, [id number] #### [facility] [address] [place] [address] Bilirubin Ql (U) Negative Normal Negative [facility] Comment on above: Performed By: #### 2 516856, [id number] #### [facility] [address] [place] [address] Clarity (U) SL CLOUDY Invalid Interpretation Code [facility] Comment on above: Performed By: #### 2 612038, [id number] #### [facility] [address] [place] [address] Color (U) STRAW Invalid Interpretation Code [facility] Comment on above: Performed By: #### 2 219653, [id number] #### [facility] [address] [place] [address] Epithelial cells.squamous LM.HPF (Urine sed) [#/Area] 5-8 Normal 0-2 [facility] Comment on above: Performed By: #### 2 845645, [id number] #### [facility] [address] [place] [address] Glucose Test strip (U) [Mass/Vol] Negative Normal Negative [facility] Comment on above: Performed By: #### 2 590103, [id number] #### [facility] [address] [place] [address] Hemoglobin Ql (U) TRACE Abnormal Negative [facility] Comment on above: Performed By: #### 2 122801, [id number] #### [facility] [address] [place] [address] Ketones (U) [Mass/Vol] Negative Normal Negative [facility] Comment on above: Performed By: #### 2 263795, [id number] #### [facility] [address] [place] [address] [place].plasma/[place] .RBC (Bld) [Mass ratio] 4-20 Normal 0-3 [facility] Comment on above: Performed By: #### 2 223983, [id number] #### [facility] [address] [place] [address] Nitrite Ql (U) Negative Normal Negative [facility] Comment on above: Performed By: #### 2 489678, [id number] #### [facility] [address] [place] [address] pH (U) 6.0 [pH] Invalid Interpretation Code 5.0-9.0 [facility] Comment on above: Performed By: #### 2 826319, [id number] #### [facility] [address] [place] [address] Protein (U) [Mass/Vol] Negative Normal Negative [facility] Comment on above: Performed By: #### 2 640601, [id number] #### [facility] [address] [place] [address] Specific gravity (U) [Rel density] 1.015 Invalid Interpretation Code 1.005-1.03 0 [facility] Comment on above: Performed By: #### 2 647651, [id number] #### [facility] [address] [place] [address] Type of Urine collection method Clean Catch Normal [facility] Comment on above: Performed By: #### 2 186768, [id number] #### [facility] [address] [place] [address] Urobilinogen Qn (U) 0.2 {Rolan'U}/dL Normal 0.0-1.0 [facility] Comment on above: Performed By: #### 2 576635, [id number] #### [facility] [address] [place] [address] WBC Auto Ql (U) 3+ Abnormal Negative [facility] Comment on above: Performed By: #### 2 988259, [id number] #### [facility] [address] [place] [address] WBC LM.HPF (Urine sed) [#/Area] 6-15 Abnormal 0-5 [facility] Comment on above: Performed By: #### 2 675685, [id number] #### [facility] [address] [place] [address] URINALYSISOrdered By: Leilani Galloway on 08-10-2023 Bacteria [...] AM) Normal Negative [facility] UA Auto SS [place].plasma/[place] .RBC (Bld) [Mass ratio] 4-20 /HPF Normal [...] AM) Invalid Interpretation Code 1.005 - 1.030 [facility] UA Auto SS UA Spec Desc Clean Catch (08/10/23 12:03 AM) Normal [facility] UA Auto SS Urobilinogen Qn (U) 0.2982896 {Rolan'U}/dL Normal 0.0 - 1.0 EU/dL [facility] UA Auto SS WBC Auto Ql (U) 3+ *ABN* (08/10/23 12:03 AM) Invalid Interpretation Code Negative [facility] UA Auto SS WBC LM.HPF (Urine sed) [#/Area] 6-15 /HPF Invalid Interpretation Code 0-5/HPF [facility] UA Auto SS eGFRon 08-10-2023 eGFR 52 mL/min/1.73 m2 Low >=59 [facility] Comment on above: Order Comment: Order added by Discern Expert. Performed By: #### 4 [id number], [id number] #### [facility] [address] [place] [address] CBC w/ Auto Diffon 4 Basophils/100 WBC (Bld) 0.6 % Normal 0.0-2.0 [facility] Comment on above: Performed By: #### 2 762014, [id number] #### [facility] [address] [place] [address] Basophils/Leukocytes Auto (Bld) [Pure # fraction] 0.0 E9/L Normal 0.0-0.2 [facility] Comment on above: Performed By: #### 2 909431, [id number] #### [facility] [address] [place] [address] Eosinophils (Bld) [#/Vol] 0.2 E9/L Normal 0.0-0.5 [facility] Comment on above: Performed By: #### 2 217483, [id number] #### [facility] [address] [place] [address] Eosinophils/100 WBC (Bld) 3.2 % Normal 0.0-8.0 [facility] Comment on above: Performed By: #### 2 006000, [id number] #### [facility] [address] [place] [address] Erythrocyte distribution width (RBC) [Ratio] 12.8 % Normal 10.9-14.2 [facility] Comment on above: Performed By: #### 2 186986, [id number] #### [facility] [address] [place] [address] Hematocrit (Bld) [Volume fraction] 39.1 % Normal 34.0-46.0 [facility] Comment on above: Performed By: #### 2 227481, [id number] #### [facility] [address] [place] [address] Hemoglobin (Bld) [Mass/Vol] 12.6 g/dL Normal 12.0-16.0 [facility] Comment on above: Performed By: #### 2 964475, [id number] #### [facility] [address] [place] [address] Lymphocytes (Bld) [#/Vol] 1.5 E9/L Normal 1.0-4.0 [facility] Comment on above: Performed By: #### 2 845603, [id number] #### [facility] [address] [place] [address] Lymphocytes/100 WBC (Bld) 22.7 % Normal 14.0-50.0 [facility] Comment on above: Performed By: #### 2 415162, [id number] #### [facility] [address] [place] [address] MCH (RBC) [Entitic mass] 28.5 pg Normal 27.0-34.0 [facility] Comment on above: Performed By: #### 2 061280, [id number] #### [facility] [address] [place] [address] MCHC (RBC) [Mass/Vol] 32.3 g/dL Normal 31.4-36.0 [facility] Comment on above: Performed By: #### 2 968714, [id number] #### [facility] [address] [place] [address] MCV (RBC) [Entitic vol] 88.4 fL Normal 80.0-100.0 [facility] Comment on above: Performed By: #### 2 237374, [id number] #### [facility] [address] [place] [address] Monocytes (Bld) [#/Vol] 0.6 E9/L Normal 0.2-1.0 [facility] Comment on above: Performed By: #### 2 825793, [id number] #### [facility] [address] [place] [address] Neutrophils (Bld) [#/Vol] 4.2 E9/L Normal 2.0-7.5 [facility] Comment on above: Performed By: #### 2 943127, [id number] #### [facility] [address] [place] [address] Neutrophils/100 WBC (Bld) 64.8 % Normal 36.0-75.0 [facility] Comment on above: Performed By: #### 2 519180, [id number] #### [facility] [address] [place] [address] Platelet mean volume (Bld) [Entitic vol] 7.2 fL Normal 6.4-10.8 [facility] Comment on above: Performed By: #### 2 491554, [id number] #### [facility] [address] [place] [address] Platelets (Bld) [#/Vol] 222.0 E9/L Normal 150.0-500. 0 [facility] Comment on above: Performed By: #### 2 305033, [id number] #### [facility] [address] [place] [address] RBC (Bld) [#/Vol] 4.4 E12/L Normal 4.3-5.9 [facility] Comment on above: Performed By: #### 2 002604, [id number] #### [facility] [address] [place] [address] WBC corrected for nucl RBC Auto (Bld) [#/Vol] 6.4 E9/L Normal 4.0-11.0 [facility] Comment on above: Performed By: #### 2 083085, [id number] #### [facility] [address] [place] [address] CHEMISTRYOrdered By: SYSTEM SYSTEM on 08-09-2023 Albumin [...] for Treatmenton 07-24 Consent for Treatment [id number] Normal [facility] HEMATOLOGYOrdered By: SYSTEM SYSTEM on 08-09-2023 Basophils/100 [...] E9/L Remisol Heme Pre-Arrival Noteon Pre-Arrival Note Pre-Arrival Summary Name: [facility], Current Date: 08/09/2023 22:55:53 EDT Gender: Date of : Age: Pre-Arrival Type: EMS ETA: 08/09/2023 23:13:00 EDT Primary Care Physician: Presenting Problem: Catheter issue Pre-Arrival User: Adan BULLARD, Nicole Patterson Referring Source: Location: [place] Completion Date/Time: 08/09/2023 22:43:00 [facility] Emergency Department Pre-Hospital Report Form _ Vital Signs: Pre-Hospital Report: Pt. here on for complications with urinary catheter and DC'd from ED. Same problem this evening. VS stable. Treatment in Route: Response to Treatment: Misc. Issues: Normal [facility] ED Note-Physicianon 08-08-19 ED Note-Physician Basic Information Time Seen: Sadaf BYRD Deborah Vannesa 08/07/2023 15:18 Chief Complaint pt self caths, states she hasn't been getting any urine out. states she is drinking. c/o lower abdominal pain History of Present Illness This patient presents emergency department chief complaint of inability to urinate, and inability to drain urine via self cath. Patient denies any fevers chills or sweats. She denies any nausea or vomiting. She denies any constipation or diarrhea. She just complains of some discomfort to the lower abdomen. Review of Systems Constitutional: Denies weight loss, fevers, chills, sweats, malaise Eyes: Denies visual changes, eye pain, double vision, scotomas, floaters ENT: Denies runny nose, epistaxis, sinus pain, ear pain, ringing in ears, tooth ache, sore throat, pain with swallowing Cardiovascular: Denies chest pain, shortness of breath, orthopnea, edema, palpitations, loss of consciousness, claudication Respiratory: Denies cough, sputum production, wheezing, hemoptysis, shortness of breath, dyspnea on exertion Gastrointestinal: Denies abdominal pain, unintentional weight loss, difficulty swallowing, indigestion, bloating, cramping, loss of appetite, nausea, vomiting, diarrhea, constipation, hematochezia, melena Genitourinary: + Urinary retention Musculoskeletal: Denies joint pain, morning stiffness, joint swelling, decreased range of motion, crepitus Integumentary: Denies any pruritus, rashes, lesions, wounds, petechiae Neurologic: Denies any changes in sight, smell, hearing, taste, seizures, headache, paresthesia, numbness, weakness, balance disturbance Psychiatric denies any depression, change in sleep patterns, anxiety, difficulty concentrating, paranoia, anhedonia, lack of energy, florentin Hematologic/lymphatic: Denies any purpura, petechiae, excessive bleeding, bruising Physical Exam Vitals & Measurements T: 36.7 ?C(Oral) HR: 67(Monitored) RR: 18 BP: 126/61 SpO2: 93% HT: 155 cm WT: 67.2 kg BMI: 27.97 Vital Signs reviewed and noted. General: Alert, no acute distress, patient resting comfortably Skin: warm, intact, no pallor noted Head: Normocephalic, atraumatic Eye: Normal conjunctiva Cardiac: Regular rate and rhythm Respiratory: Clear to auscultation Abdomen: Soft, nontender, bowel sounds present active and normal., There is palpable distended bladder. No organomegaly. Musculoskeletal: No deformity, full ROM. Neurological: alert and oriented, normal sensory and motor observed. Psychiatric: Cooperative Medical Decision Making MEDICAL DECISION MAKING Number and Complexity of Problems Differential Diagnosis: Acute urinary retention, acute lower urinary tract infection, dehydration, electrolyte imbalance MDM Data External documents reviewed: Not applicable My EKG interpretation: Noted in chart if applicable My CT interpretation: Noted in chart if applicable My X-ray interpretation: Noted in chart if applicable My Ultrasound interpretation: Not applicable Decision rules/scores evaluated: Noted in chart if applicable Discussed with: Not applicable Treatment and Disposition ED Course: Patient was interviewed and examined. The appropriate ER workup was initiated. Bladder scan is positive for > 600 mL of urine. Choi catheter was placed. UA was sent. UA is remarkable for 3+ leukocyte, 6-15 WBCs, 2+ bacteria, negative nitrate. The patient will be discharged home in stable condition. She is to follow-up with urology. She is to return to the emergency department for any further problems or concerns. Shared decision making: I discussed the discharge diagnosis and plan of care with the patient. She is in agreement with the plan of care. Code status: Not applicable Assessment/Plan 1. Acute urinary retention (R33.8: Other retention of urine) 2. Acute on chronic urinary retention (R33.9: Retention of urine, unspecified) Orders: Urinary Catheter Insertion Disposition Plan Patient Discharge Condition Stable Discharge Disposition Home Discharge Prescription List Prescriptions No active prescription medications Follow-up With When Contact Information Dolly Valenzuela In 3 days 08/10/2023 EDT [address] [facility], [address] [place] [phone] Business (1) Additional Instructions: Patient Education Indwelling Urinary Catheter Care, Adult Acute Urinary Retention, Female, Livu-zo-Bmsf Attestation I performed a substantive part of the MDM during the patient?s E/M visit. I personally made or approved the documented management plan and acknowledge its risk of complications. (Independent Interpretation) My (EKG/X-Ray/US/CT) interpretation as above. (Discussion) Management/test interpretation discussed with APC. Problem List/Past Medical History Ongoing Acute UTI At risk for falls Bipolar disorder, manic, moderate BMI 27.0-27.9,adult Charcot's joint of right foot Chronic ankle pain Chronic constipation Chronic obstructive pulmo (more content not included)... Normal [facility] Comment on above: Result Comment: Elec tronically Signed By: Deborah Talavera PA-C\.br\Date and Time Signed: 08/08/23 00:49 EDT\.br\Electronically Co-Signed By: Didier Hooks M.D.\.br\Date and Time Co-Signed: 08/08/23 07:11 EDT Consent for Treatmenton 07-24 Consent for Treatment [id number] [facility] Discharge Instructionson Discharge Instructions [id number] [facility] ED Clinical Summaryon 2023 ED Clinical Summary (Inserted Image. Sara ble to display) [place] [id number] ED Clinical Summary Person Information Name: MAEGAN DYE/[facility] Age: 73 Years : 1950 Sex: Female Language: Dutch PCP: Dolly Valenzuela CNP Marital Status: Phone: [phone] Visit Id: Visit Reason: Urinary retention; URINARY RETENTION Speciality: Acuity: 3 Enc Type: Emergency Med Service: Emergency Arrival: 08/07/2023 15:03:56 Discharge: 08/07/2023 17:34:51 LOS: 000 02:31 Checkin: 08/07/2023 15:03:56 Checkout: 08/07/2023 17:34:51 Dispo Type: Home (Routine DC) EVENTS: Event Name Event Status Request Date/Time Start Date/Time Complete Date/Time Arrive Complete 08/07/2023 15:03:56 08/07/2023 15:03:56 08/07/2023 15:03:56 Document Home Meds Request 08/07/2023 15:03:56 Triage Complete 08/07/2023 15:03:56 08/07/2023 15:21:07 08/07/2023 15:21:07 Bed Assign Complete 08/07/2023 15:17:27 08/07/2023 15:17:27 08/07/2023 15:17:27 Dr Exam Complete 08/07/2023 15:17:27 08/07/2023 15:17:59 08/07/2023 15:17:59 RN Exam Complete 08/07/2023 15:17:27 08/07/2023 15:56:41 08/07/2023 15:56:41 Registration Complete 08/07/2023 15:17:59 08/07/2023 15:18:38 08/07/2023 15:18:38 Reg Complete Request 08/07/2023 15:18:38 Reg Bed Request Complete 08/07/2023 15:18:38 08/07/2023 15:18:38 08/07/2023 15:18:38 Isolation Screening Request 08/07/2023 15:21:08 Dr Exam Complete 08/07/2023 15:22:33 08/07/2023 15:22:33 08/07/2023 15:22:33 Registration Request 08/07/2023 15:22:33 Patient Care Request 08/07/2023 15:22:51 Patient Care Request 08/07/2023 15:29:40 Patient Care Complete 08/07/2023 15:29:40 08/07/2023 15:47:46 Pending Labs Complete 08/07/2023 15:29:41 08/07/2023 16:17:29 Lab Complete 08/07/2023 15:29:41 08/07/2023 16:17:29 Urine Collect Complete 08/07/2023 15:29:41 08/07/2023 16:17:29 Pending Labs Inlab 08/07/2023 16:02:37 08/07/2023 16:02:37 Lab Inlab 08/07/2023 16:02:37 08/07/2023 16:02:37 Discharge Complete 08/07/2023 16:39:47 08/07/2023 17:34:59 08/07/2023 17:34:59 Transfer Complete 08/07/2023 17:34:59 08/07/2023 17:34:59 08/07/2023 17:34:59 ADDRESS: [address] [facility] [id number] PHYS DOC NOTES: MEDICAL INFORMATION: Prescriptions Given: Medications to Continue with No Changes Other Medications amlodipine (amLODIPine 5 mg Tab) 1 Tablets By Mouth every day. TAKE 1 TABLET BY MOUTH EVERY DAY. celecoxib (celecoxib 200 mg Cap) TAKE 1 CAPSULE BY MOUTH EVERY DAY. cimetidine (cimetidine 300 mg oral tablet) 2 Tablets By Mouth 3 times a day. Refills: 5. citalopram (citalopram 20 mg Tab) TAKE 1 TABLET BY MOUTH EVERY DAY. clonazepam (clonazepam 1 mg Tab) TAKE 1 TABLET BY MOUTH THREE TIMES A DAY NEEDED FOR ANXIETY. cyanocobalamin (cyanocobalamin 1000 mcg/mL Inj) 1 Milliliter Intramuscular once a month. Refills: 1. docusate (Colace 100 mg Cap) 1 Capsules By Mouth 2 times a day. Hold for diarrhea. Refills: 0. Ensure (Ensure Vanilla) Drink 1 bottle (8 fl. oz.) BID. Refills: 5. ferrous sulfate (ferrous sulfate 325 mg Tab) 1 Tablets By Mouth 3 times a day. Refills: 0. fluticasone nasal (fluticasone 0.05 mg/inh Nasal [place]) 2 Sprays Nasal Inhalation every day. each nostril. Refills: 5. lisinopril (lisinopril 20 mg Tab) 1 Tablets By Mouth every day. Refills: 1. Misc Prescription (Straight Catheters & Supplies) Use daily, as directed.. Refills: 5. Misc Prescription (walking boot) right foot knee high walking Size small boot dx m21.969, m14.679 Fax to [facility]. Refills: 0. multivitamin with minerals (Therapeutic Multiple Vitamins with Minerals Tab) By Mouth every day. mupirocin topical (mupirocin Top 2% Oint) 1 Application Topical 3 times a day. Refills: 0. ondansetron (ondansetron [...] bedtime) as needed for constipation. Refills: 1. trazodone (traZODONE 150 mg Tab) 1 Tablets By Mouth once a day (at bedtime). Do not give with clonazepam. Refills: 3. PATIENT EDUCATION INFORMATION: Instructions: Indwelling Urinary Catheter Care, Adult; Acute Urinary Retention, Female, Ragt-pe-Lcqv Follow up: With: Address: When: Dolly Valenzuela [address] [place] [address], [address] [place] [phone] [place]piel (1) In 3 days 08/10/2023 DIAGNOSIS: 1:Acute urinary retention; 2:Acute on chronic urinary retention Normal [facility] ED Patient Education Noteon 08-07-2023 ED Patient Education Note Obstetrics and Gynecology Acute Urinary Retention, Female Acute urinary retention is when a person cannot pee (urinate) at all, or can only pee a little. This can come on all of a sudden. If it is not treated, it can lead to kidney problems or other serious problems. What are the causes? ? A problem with the tube that drains the bladder (urethra). ? Problems with the nerves in the bladder. ? The organs in the area between your hip bones (pelvis) slipping out of place (prolapse). ? Tumors. ? The of a baby through the vagina. ? An infection. ? Having trouble pooping (constipation). ? Certain medicines. What increases the risk? Women over age 50 are more at risk. Other conditions also can increase risk. These include: ? Diseases, such as multiple sclerosis. ? Injury to the spinal cord. ? Diabetes. ? A condition that affects the way the brain works, such as dementia. ? Holding back urine due to trauma or because you do not want to use the bathroom. ? History of not being able to pee or peeing too little. ? Having had surgery in the area between your hip bones. What are the signs or symptoms? ? Trouble peeing. ? Pain in the lower belly. How is this treated? Treatment for this condition may include: ? Medicines. ? Placing a thin, germ-free tube (catheter) into the bladder to drain pee out of the body. ? Therapy to treat mental health conditions. ? Treatment for conditions that may cause this. If needed, you may be treated in the hospital for kidney problems or to manage other problems. Follow these instructions at home: Medicines ? Take hvph-wig-cpczqyu and prescription medicines only as told by your doctor. Ask your doctor what medicines you should stay away from. ? If you were given an antibiotic medicine, take it as told by your doctor. Do not stop taking it even if you start to feel better. General instructions ? Do not smoke or use any products that contain nicotine or tobacco. If you need help quitting, ask your doctor. ? Drink enough fluid to keep your pee pale yellow. ? If you were sent home with a tube that drains the bladder, take care of it as told by your doctor. ? Watch for changes in your symptoms. Tell your doctor about them. ? If told, keep track of changes in your blood pressure at home. Tell your doctor about them. ? Keep all follow-up visits. Contact a doctor if: ? You have spasms in your bladder that you cannot stop. ? You leak pee when you have spasms. Get help right away if: ? You have chills or a fever. ? You have blood in your pee. ? You have a tube that drains pee from the bladder and these things happen: ? The tube stops draining pee. ? The tube falls out. Summary ? Acute urinary retention is when you cannot pee at all or you pee too little. ? If this is not treated, it can cause kidney problems or other serious problems. ? If you were sent home with a tube (catheter) that drains pee from the bladder, take care of it as told by your doctor. ? Watch for changes in your symptoms. Tell your doctor about them. This information is not intended to replace advice given to you by your health care provider. Make sure you discuss any questions you have with your health care provider. Document Revised: 01/31/2021 Document Reviewed: 01/31/2021 [email or web address] Patient Education ? 2022 [employer]. Urology Indwelling Urinary Catheter Care, Adult An indwelling [...] problems from developing. What are the risks? ? Bacteria may get into your bladder and cause a urinary tract infection. ? Urine flow can become blocked. This can happen if the catheter is not working correctly, or if you have sediment or a blood clot in your bladder or catheter. ? Tissue near the catheter may become irritated and may bleed. How to wear your catheter and your drainage bag Supplies needed ? Adhesive tape or a leg strap. ? Alcohol wipe or soap and water (if you use tape). ? A clean towel (if you use tape). ? Overnight drainage bag. ? Smaller drainage bag (leg bag). Wearing your catheter and bag Use adhesive tape or a leg strap to attach your catheter to your leg. ? Make sure the catheter is not pulled tight. ? If a leg strap gets wet, replace it with a dry one. ? If you use adhesive tape: 1. Use an alcohol wipe or soap and water to wash off any stickiness on your skin where you had tape before. 2. Use a clean towel to pat-dry the area. 3. Apply the new tape. You should have received a large overnight drainage bag and a smaller leg bag that fits underneath clothi (more content not included)... Normal [facility] ED Patient Summaryon 024 ED Patient Summary (Inserted Image. Sara ble to display) [address] [address] Patient Discharge Instructions Person Information Name: MAEGAN DYE Age: 73 Years Arrival Date: 08/07/2023 15:03:56 Discharge Diagnosis: 1:Acute urinary retention; 2:Acute on chronic urinary retention Primary Care Physician: Dolly Valenzuela CNP Provider Information Primary Provider: Didier Hooks M.D. Advanced Boring Mill Set Up Operator Vertical:None The exam and treatment you received in the Emergency Department were for an urgent problem and are not intended as complete care. It is important that you follow up with a doctor, nurse practitioner, or physician?s assistant executive housekeeper for ongoing care. If your symptoms become worse or you do not improve as expected and you are unable to reach your usual health care provider, you should return to the Emergency Department. We are available 24 hours a day. MAEGAN DYE has been given the following list of patient education materials, prescriptions and follow-up instructions: Follow-up Instructions: With: Address: When: Dolly Valenzuela [address] [place] [address], [address] [place], [place] [id number] Business (1) In 3 days 08/10/2023 In the event that this physician does not participate in your insurance network, please consult with your insurance company to find a nearby participating provider. Patient Education Materials: Indwelling Urinary Catheter Care, Adult; Acute Urinary Retention, Female, Uruc-ww-Olrk A MESSAGE TO ALL PATIENTS REGARDING OPIOIDS PRESCRIPTION OPIOIDS: WHAT YOU NEED TO KNOW Prescription opioids can be used to help relieve cvxwbnhc-gg-vmuxyf pain and are often prescribed following a [...] be struggling with addiction, tell your health care profes (more content not included)... Normal [facility] UA With Cult Reflexon 2023 Bacteria LM Ql (Urine sed) 2+ /HPF Abnormal Trace [facility] Comment on above: Order Comment: Urina ry Catheter Insertion triggered Urinalysis With Culture Reflex order by discern. Performed By: #### 2 [id number], [id number] #### [facility] [address] [place] [address] Bilirubin Ql (U) Negative Normal Negative [facility] Comment on above: Order Comment: Urina ry Catheter Insertion triggered Urinalysis With Culture Reflex order by discern. Performed By: #### 2 [id number], [id number] #### [facility] [address] [place] [address] Clarity (U) SL CLOUDY Invalid Interpretation Code [facility] Comment on above: Order Comment: Urina ry Catheter Insertion triggered Urinalysis With Culture Reflex order by discern. Performed By: #### 2 [id number], [id number] #### [facility] [address] [place] [address] Color (U) YELLOW Normal Yellow [facility] Comment on above: Order Comment: Urina ry Catheter Insertion triggered Urinalysis With Culture Reflex order by discern. Performed By: #### 2 [id number], [id number] #### [facility] [address] [place] [address] Epithelial cells.squamous LM.HPF (Urine sed) [#/Area] 0-2 Normal 0-2 [facility] Comment on above: Order Comment: Urina ry Catheter Insertion triggered Urinalysis With Culture Reflex order by discern. Performed By: #### 2 [id number], [id number] #### [facility] [address] [place] [address] Glucose Test strip (U) [Mass/Vol] Negative Normal Negative [facility] Comment on above: Order Comment: Urina ry Catheter Insertion triggered Urinalysis With Culture Reflex order by discern. Performed By: #### 2 894508, [id number] #### [facility] [address] [place] [address] Hemoglobin Ql (U) Negative Normal Negative [facility] Comment on above: Order Comment: Urina ry Catheter Insertion triggered Urinalysis With Culture Reflex order by discern. Performed By: #### 2 [id number], [id number] #### [facility] [address] [place] [address] Ketones (U) [Mass/Vol] Negative Normal Negative [facility] Comment on above: Order Comment: Urina ry Catheter Insertion triggered Urinalysis With Culture Reflex order by discern. Performed By: #### 2 [id number], [id number] #### [facility] [address] [place] [address] [place].plasma/[place] .RBC (Bld) [Mass ratio] 0-3 Normal 0-3 [facility] Comment on above: Order Comment: Urina ry Catheter Insertion triggered Urinalysis With Culture Reflex order by discern. Performed By: #### 2 [id number], [id number] #### [facility] [address] [place] [address] Mucus Ql (Urine sed) 1+ Normal Fish [facility] Comment on above: Order Comment: Urina ry Catheter Insertion triggered Urinalysis With Culture Reflex order by discern. Performed By: #### 2 151134, [id number] #### [facility] [address] [place] [address] Nitrite Ql (U) Negative Normal Negative [facility] Comment on above: Order Comment: Urina ry Catheter Insertion triggered Urinalysis With Culture Reflex order by discern. Performed By: #### 2 979495, [id number] #### [facility] [address] [place] [address] pH (U) 7.5 [pH] Invalid Interpretation Code 5.0-9.0 [facility] Comment on above: Order Comment: Urina ry Catheter Insertion triggered Urinalysis With Culture Reflex order by discern. Performed By: #### 2 [id number], [id number] #### [facility] [address] [place] [address] Protein (U) [Mass/Vol] Negative Normal Negative [facility] Comment on above: Order Comment: Urina ry Catheter Insertion triggered Urinalysis With Culture Reflex order by discern. Performed By: #### 2 710135, [id number] #### [facility] [address] [place] [address] Specific gravity (U) [Rel density] 1.010 Invalid Interpretation Code 1.005-1.03 0 [facility] Comment on above: Order Comment: Urina ry Catheter Insertion triggered Urinalysis With Culture Reflex order by discern. Performed By: #### 2 [id number], [id number] #### [facility] [address] [place] [address] Type of Urine collection method Clean Catch Normal [facility] Comment on above: Order Comment: Urina ry Catheter Insertion triggered Urinalysis With Culture Reflex order by discern. Performed By: #### 2 154635, [id number] #### [facility] [address] [place] [address] Urobilinogen Qn (U) 0.2 {Rolan'U}/dL Normal 0.0-1.0 [facility] Comment on above: Order Comment: Urina ry Catheter Insertion triggered Urinalysis With Culture Reflex order by discern. Performed By: #### 2 701410, [id number] #### [facility] [address] [place] [address] WBC Auto Ql (U) 3+ Abnormal Negative [facility] Comment on above: Order Comment: Urina ry Catheter Insertion triggered Urinalysis With Culture Reflex order by discern. Performed By: #### 2 321268, [id number] #### [facility] [address] [place] [address] WBC LM.HPF (Urine sed) [#/Area] 6-15 Abnormal 0-5 [facility] Comment on above: Order Comment: Urina ry Catheter Insertion triggered Urinalysis With Culture Reflex order by discern. Performed By: #### 2 406129, [id number] #### [facility] [address] [place] [address] URINALYSISOrdered By: Chelsy Lujan on 08-07-2023 Bacteria LM Ql (Urine sed) 2+ /HPF Invalid Interpretation Code Trace/HPF [facility] UA Auto SS Bilirubin Ql (U) Negative [...] PM) Normal Negative [facility] UA Auto SS [place].plasma/[place] .RBC (Bld) [Mass ratio] 0-3 /HPF Normal [...] [facility] UA Auto SS Urobilinogen Qn (U) 0.3197168 {Rolan'U}/dL Normal 0.0 - 1.0 EU/dL [facility] [...] aPTT Coag (PPP) [Time] 31.4 s 25.1-36.5 [facility] Comment on above: A hematocrit value g reater than 55% may lead to inaccurate results in coagulation testing. Patients having hematocrit values >55% require a special collection tube for coagulation studies. Please contact the laboratory at [phone] for redraw instructions. Alanine aminotransferase [En zymatic activity/volume] in Serum or PlasmaOrdered By: Bebe Ortiz on 07-05-2023 ALT [Catalytic activity/Vol] 8 U/L Normal 7-[address] [facility] Comment on above: Performed By: #### C MP, PT, CBC, PTT, HS TROP #### [facility] [address] Albumin [Mass/volume] in Ser um or Plasma by Bromocresol green (BCG) dye binding methoOrdered By: Bebe Ortiz on 07-05-2023 Albumin BCG dye [Mass/Vol] 4.4 g/dL 3.5-5.[address] [facility] Alkaline phosphatase [Enzyma tic activity/volume] in Serum or PlasmaOrdered By: Bebe Ortiz on 07-05-2023 ALP [Catalytic activity/Vol] 96 U/L Normal 34-[address] [facility] Comment on above: Performed By: #### C MP, PT, CBC, PTT, HS TROP #### [facility] [address] Amphetamine Screen Ql (U)Ord ered By: Bebe Ortiz on 07-05-2023 Amphetamines Ql (U) Negative Negative [facility] Aspartate aminotransferase [ Enzymatic activity/volume] in Serum or PlasmaOrdered By: Bebe Ortiz on 07-05-2023 AST [Catalytic activity/Vol] 17 U/L Normal 13-[address] [facility] Comment on above: Performed By: #### C MP, PT, CBC, PTT, HS TROP #### [facility] [address] [place] [address] [place] Automated basophil %Ordered By: Bebe Ortiz on 02-10-2024 Basophils/100 WBC (Bld) 0.7 % Normal . [facility] Comment on above: Performed By: #### C MP, PT, CBC, PTT, HS TROP #### [address] Automated basophil countOrde red By: Bebe Ortiz on 07-05-2023 Basophils (Bld) [#/Vol] 0.1 10*3/uL Normal 0.0-0.[address] [facility] Comment on above: Result Comment: PERF ORMED BY: [place] [address] PATHOLOGIST BRAKE OPERATOR HEAVY DUTY CORIE SILVA M.D. Performed By: #### C MP, PT, CBC, PTT, HS TROP #### [address] Automated blood monocyte cou ntOrdered By: Bebe Ortiz on 07-05-2023 Monocytes (Bld) [#/Vol] 0.7 10*3/uL Normal 0.0-0.[address] [facility] Comment on above: Performed By: #### C MP, PT, CBC, PTT, HS TROP #### [address] Automated eosinophil %Ordere d By: Bebe Ortiz on 07-05-2023 Eosinophils/100 WBC (Bld) 2.1 % Normal . [facility] [facility] Comment on above: Performed By: #### C MP, PT, CBC, PTT, HS TROP #### [address] Automated eosinophil countOr dered By: Bebe Ortiz on 07-05-2023 Eosinophils (Bld) [#/Vol] 0.2 10*3/uL Normal 0.0-0.[address] [facility] Comment on above: Performed By: #### C MP, PT, CBC, PTT, HS TROP #### [address] Automated erythrocytes count in urine sediment (number/area)Ordered By: Bebe Ortiz on 07-05-2023 RBC Auto (Urine sed) [#/Area] 5-9 [HPF] 0-[address] [facility] Automated leukocytes count i n urine sediment (number/area)Ordered By: Bebe Ortiz on 07-05-2023 WBC Auto (Urine sed) [#/Area] 50-100 [HPF] 0-[address] [facility] Automated monocyte %Ordered By: Bebe Ortiz on 07-05-2023 Monocytes/100 WBC (Bld) 9.0 % Normal . [facility] Comment on above: Performed By: #### C MP, PT, CBC, PTT, HS TROP #### [facility] [address] Automated neutrophil %Ordere d By: Bebe Ortiz on 07-05-2023 Neutrophils/100 WBC (Bld) 68.6 % Normal . [facility] Comment on above: Performed By: #### C MP, PT, CBC, PTT, HS TROP #### [facility] [address] Automated urine color determ inationOrdered By: Bebe Ortiz on 07-05-2023 Color (U) Yellow Normal Yellow [facility] Comment on above: Order Comment: Name Collection Type:: Clean-Voided Midstream Performed By: #### C UU, ADDONUAPLUS #### [facility] [address] Barbiturates [Presence] in U rine by Screen methodOrdered By: Bebe Ortiz on 07-05-2023 Barbiturates Screen Ql (U) Negative Negative [facility] Benzodiazepines Screen Ql (U )Ordered By: Bebe Ortiz on 07-05-2023 Benzodiazepines Ql (U) Negative Negative [facility] Benzoylecgonine [Presence] i n Urine by Screen methodOrdered By: Bebe Ortiz on 07-05-2023 Benzoylecgonine Screen Ql (U) Negative Negative [facility] Bilirubin Test strip Ql (U)O rdered By: Bebe Ortiz on 07-05-2023 Bilirubin Ql (U) Negative Negative [facility] Bilirubin.total [Mass/volume ] in Serum or PlasmaOrdered By: Bebe Ortiz on 07-05-2023 Bilirubin [Mass/Vol] 0.5 mg/dL Normal 0.3-1.0 [facility] Comment on above: Performed By: #### C MP, PT, CBC, PTT, HS TROP #### [place] [id number] [facility] CT head/brain wo conon 07-05 CT head/brain wo con [facility] [place] [place] [address] CT Scan Report Signed Patient: Maegan Dye MR#: [id number] : 1950 Acct:[id number] Age/Sex: 73 / F ADM Date: 07/05/23 Loc: ER Room: Type: [facility] ER Attending Dr: Copies to: Bebe Ortiz [...] Ángel Littlejohn M.D.07/05/2023 5:14 PM Dictation Location: [place] [address] Transcribed By: YUSEF 07/05/231713 Dictated By: Ángel Littlejohn II, MD 02/10/24 1710 Signed By: 07/05/231713 Normal [facility] Calcium [Mass/volume] in Ser um or PlasmaOrdered By: Bebe Ortiz on 07-05-2023 Calcium [Mass/Vol] 9.7 mg/dL Normal 8.6-10.3 [facility] Comment on above: Performed By: #### C MP, PT, CBC, PTT, HS TROP #### [facility] [address] Cannabinoids [Presence] in U rine by Screen methodOrdered By: Bebe Ortiz on 07-05-2023 Cannabinoids Screen Ql (U) Negative Negative [facility] Comment on above: These are unconfirme d results and should not be used for legal purposes. Drug Cut-Off Concentration: AMPH 1000 ng/mL PHILL 200 ng/mL ROBERT 200 ng/mL COCM 300 ng/mL OP 300 ng/mL PCP 25 ng/mL THC 20 ng/mL Carbon dioxide, total [Moles /volume] in Serum or PlasmaOrdered By: Bebe Ortiz on 07-05-2023 CO2 [Moles/Vol] 29.2 mmol/L Normal 21.0-31.0 [facility] Comment on above: Performed By: #### C MP, PT, CBC, PTT, HS TROP #### [facility] [address] [place] [address] [place] Chloride [Moles/volume] in S clarisa or PlasmaOrdered By: Bebe Ortiz on 07-05-2023 Chloride [Moles/Vol] 101 mmol/L Normal 98-107 [facility] Comment on above: Performed By: #### C MP, PT, CBC, PTT, HS TROP #### [facility] [address] [place] [address] [place] Complete Blood Count Auto Di ffon 07-05-2023 Mean Corpuscular HGB Conc 32.5 g/dL Normal 32.0-35.0 [facility] Comment on above: Performed By: #### C MP, PT, CBC, PTT, HS TROP #### [facility] [address] [place] [id number] [place] Monocytes/100 WBC (Bld) 17.07 % Normal 0.00-20.00 [facility] Comment on above: Performed By: #### C MP, PT, CBC, PTT, HS TROP #### [address] NRBC% 0.1 /100{WBC} Normal 0-0.5 [facility] Comment on above: Performed By: #### C MP, PT, CBC, PTT, HS TROP #### [address] Comprehensive Metabolic Pane isauro 07-05-2023 Albumin [Mass/Vol] 4.4 g/dL Normal 3.5-5.7 [facility] Comment on above: Performed By: #### C MP, PT, CBC, PTT, HS TROP #### [address] Creatinine Clr Calc Pharmacy 34.02 Normal [facility] Comment on above: Result Comment: PERF ORMED BY: [place] [address] PATHOLOGIST BRAKE OPERATOR HEAVY DUTY CORIE SILVA M.D. Performed By: #### C MP, PT, CBC, PTT, HS TROP #### [address] GFR/1.73 sq M.predicted MDRD (S/P/Bld) [Vol rate/Area] 50.736 mL/min/{1.73_m2} Normal [facility] Comment on above: Performed By: #### C MP, PT, CBC, PTT, HS TROP #### [address] Creatinine [Mass/volume] in Serum or PlasmaOrdered By: Bebe Ortiz on 07-05-2023 Creatinine [Mass/Vol] 1.13 mg/dL Normal 0.60-1.20 [facility] Comment on above: Performed By: #### C MP, PT, CBC, PTT, HS TROP #### [place] [address] [place] Dipstick and Microscopicon 0 07-05-2023 Appearance (U) Turbid Critically abnormal Clear [facility] Comment on above: Order Comment: Name Collection Type:: Clean-Voided Midstream Performed By: #### C UU, ADDONUAPLUS #### [facility] [address] [place] [address] Bacteria,Urine 2+ High None Seen [facility] Comment on above: Order Comment: Name Collection Type:: Clean-Voided Midstream Performed By: #### C UU, ADDONUAPLUS #### [place] [address] [place] Bilirubin,Urine Negative Normal Negative [facility] Comment on above: Order Comment: Name Collection Type:: Clean-Voided Midstream Performed By: #### C UU, ADDONUAPLUS #### [address] Glucose Ql (U) Normal Normal Normal [facility] Comment on above: Order Comment: Name Collection Type:: Clean-Voided Midstream Performed By: #### C UU, ADDONUAPLUS #### [place] [address] [place] Hyaline Casts,Urine 0-8 Normal 0-8 [facility] Comment on above: Order Comment: Name Collection Type:: Clean-Voided Midstream Result Comment: PERF ORMED BY: [place] [address] PATHOLOGIST BRAKE OPERATOR HEAVY DUTY CORIE SILVA M.D. Performed By: #### C UU, ADDONUAPLUS #### [place] [address] [place] Ketones Ql (U) Negative Normal Negative [facility] Comment on above: Order Comment: Name Collection Type:: Clean-Voided Midstream Performed By: #### C UU, ADDONUAPLUS #### [address] Leukocyte esterase Test strip Ql (U) 4+ High Negative [facility] Comment on above: Order Comment: Name Collection Type:: Clean-Voided Midstream Performed By: #### C UU, ADDONUAPLUS #### [place] [address] [place] Nitrite,Urine Negative Normal Negative [facility] Comment on above: Order Comment: Name Collection Type:: Clean-Voided Midstream Performed By: #### C UU, ADDONUAPLUS #### [place] [address] [place] Occult Blood,Urine Trace High Negative [facility] Comment on above: Order Comment: Name Collection Type:: Clean-Voided Midstream Result Comment: PERF ORMED BY: [place] [address] PATHOLOGIST BRAKE OPERATOR HEAVY DUTY CORIE SILVA M.D. Performed By: #### C UU, ADDONUAPLUS #### [place] [address] [place] Protein,Urine Negative Normal Negative [facility] Comment on above: Order Comment: Name Collection Type:: Clean-Voided Midstream Performed By: #### C UU, ADDONUAPLUS #### [place] [address] [place] RBC,Urine 5-9 High 0-4 [facility] Comment on above: Order Comment: Name Collection Type:: Clean-Voided Midstream Performed By: #### C UU, ADDONUAPLUS #### [address] Renal Epithelial Cells,Urine 0-1 Normal 0-1 [facility] Comment on above: Order Comment: Name Collection Type:: Clean-Voided Midstream Performed By: #### C UU, ADDONUAPLUS #### [place] [address] [place] Specificy [place],Urine 1.009 Normal 1.001-1.03 0 [facility] Comment on above: Order Comment: Name Collection Type:: Clean-Voided Midstream Performed By: #### C UU, ADDONUAPLUS #### [place] [address] [place] Squamous Epithelial Cell,Urine 10-19 High 0-2 [facility] Comment on above: Order Comment: Name Collection Type:: Clean-Voided Midstream Performed By: #### C UU, ADDONUAPLUS #### [address] Urobilinogen,Urine Normal Normal Normal [facility] Comment on above: Order Comment: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 [facility] UA Auto SS WBC LM.HPF (Urine sed) [#/Area] 0-5 /HPF Normal 0-5/HPF [facility] UA Auto SS CHEMISTRYOrdered By: SYSTEM SYSTEM [...] 1.1 mg/dL Normal 0.5 - 1.3 mg/dL [facility] Remisol GFR/1.73 sq M.predicted among non-blacks MDRD (S/P/Bld) [Vol rate/Area] 53 mL/min/1.73 m2 Low >=59mL/min /1.73 m2 [facility] Chem S Glucose [Mass/Vol] 124 mg/dL Normal 55 - 199 mg/dL [facility] Remisol Potassium [Moles/Vol] 3.9 mmol/L Normal 3.5 - 5.3 mmol/L [facility] Remisol Sodium [Moles/Vol] 135 mmol/L Normal 135 - 145 mmol/L [facility] Remisol Urea nitrogen [Mass/Vol] 19 mg/dL Normal 5 - 21 mg/dL [facility] Remisol Urea nitrogen/Creatinine [Mass ratio] 17 mg/mg Normal 10 - 20 [facility] Remisol HEMATOLOGYOrdered By: SYSTEM SYSTEM on 12-29-2022 Basophils/100 WBC (Bld) 1.1 % Normal 0.0 - 2.0 % [facility] HemeAutoSS Basophils/Leukocytes Auto (Bld) [Pure # fraction] 0.1 E9/L Normal 0.0 - 0.2 E9/L FT HemeAutoSS Eosinophils/100 WBC (Bld) 1.9 % Normal [...] 239.0 E9/L Normal 150.0 - 500.0 E9/L [facility] HemeAutoSS RBC (Bld) [#/Vol] 4.6 E12/L Normal 4.3 - 5.9 E12/L [facility] HemeAutoSS WBC corrected for nucl RBC Auto (Bld) [#/Vol] 6.6 E9/L Normal 4.0 - 11.0 E9/L [facility] HemeAutoSS CBC AUTO DIFFon 10-18-2022 BASO # 0.0 103/ul Normal 0.0-0.1 [facility] Comment on above: Performed By: #### C BC #### [facility] [address] [place] [address] Dr. Stevie Torres Basophils/100 WBC (Bld) 0.5 % Normal 0.2-2.0 [facility] Comment on above: Performed By: #### C BC #### [facility] [address] [place] [address] Dr. Stevie Torres EO # 0.3 103/ul Normal 0.0-0.7 [facility] Comment on above: Performed By: #### C BC #### [facility] [address] [place] [address] Dr. Stevie Torres Eosinophils/100 WBC (Bld) 3.2 % Normal 0.9-7.0 [facility] Comment on above: Performed By: #### C BC #### [facility] [address] [place] [address] Dr. Stevie Torres Erythrocyte distribution width (RBC) [Ratio] 11.2 % Normal 11.0-15.0 [facility] Comment on above: Performed By: #### C BC #### [facility] [address] [place] [address] Dr. Stevie Torres Hematocrit (Bld) [Volume fraction] 39.2 % Normal 36.0-48.0 [facility] Comment on above: Performed By: #### C BC #### [facility] [address] [place] [address] Dr. Stevie Torres Hemoglobin (Bld) [Mass/Vol] 12.8 g/dL Normal 12.0-16.0 [facility] Comment on above: Performed By: #### C BC #### [facility] [address] [place] [address] Dr. Stevie Torres IG # 0.03 10e3/ul Normal 0.00-0.03 [facility] Comment on above: Performed By: #### C BC #### [facility] [address] [place] [address] Dr. Stevie Torres IG % 0.4 % Normal 0.0-0.5 [facility] Comment on above: Performed By: #### C BC #### [facility] [address] [place] [address] Dr. Stevie Torres LYMPH # 2.0 103/ul Normal 1.2-3.8 [facility] Comment on above: Performed By: #### C BC #### [facility] [address] [place] [address] Dr. Stevie Torres Lymphocytes/100 WBC (Bld) 26.4 % Normal 20.5-60.0 [facility] Comment on above: Performed By: #### C BC #### [facility] [address] [place] [address] Dr. Stevie Torres MANUAL DIFF REQ NO Normal [facility] Comment on above: Performed By: #### C BC #### [facility] [address] [place] [address] Dr. Stevie Torres MCH (RBC) [Entitic mass] 29.1 pg Normal 26.7-34.0 [facility] Comment on above: Performed By: #### C BC #### [facility] [address] [place] [address] Dr. Stevie Torres MCHC (RBC) [Mass/Vol] 32.7 g/dL Normal 29.9-35.2 [facility] Comment on above: Performed By: #### C BC #### [facility] [address] [place] [address] Dr. Stevie Torres MCV (RBC) [Entitic vol] 89.1 fL Normal 81.0-99.0 [facility] Comment on above: Performed By: #### C BC #### [facility] [address] [place] [address] Dr. Stevie Torres MONO # 0.8 103/ul Normal 0.3-0.8 [facility] Comment on above: Performed By: #### C BC #### [facility] [address] [place] [address] Dr. Stevie Torres Monocytes/100 WBC (Bld) 10.7 % Normal 1.7-12.0 [facility] Comment on above: Performed By: #### C BC #### [facility] [address] [place] [address] Dr. Stevie Torres NEUT # 4.6 103/ul Normal 1.4-6.5 [facility] Comment on above: Performed By: #### C BC #### [facility] [address] [place] [address] Dr. Stevie Torres Neutrophils/100 WBC (Bld) 58.8 % Normal 43.0-75.0 [facility] Comment on above: Performed By: #### C BC #### [facility] [address] [place] [address] Dr. Stevie Torres Platelet mean volume (Bld) [Entitic vol] 8.4 fL Critically low 9.5-13.5 [facility] Comment on above: Performed By: #### C BC #### [facility] [address] [place] [address] Dr. Stevie Torres PLT 270 103/ul Normal 150-450 [facility] Comment on above: Performed By: #### C BC #### [facility] [address] [place] [address] Dr. Stevie Torres RBC 4.40 106/ul Normal 4.20-5.40 [facility] Comment on above: Performed By: #### C BC #### [facility] [address] [place] [address] Dr. Stevie Torres WBC 7.7 103/ul Normal 4.0-11.0 [facility] Comment on above: Performed By: #### C BC #### [facility] [address] [place] [address] Dr. Stevie Torres CRPon 10-18-2022 CRP [Mass/Vol] mg/L Normal <=1.0 [facility] Comment on above: Performed By: #### B MP, CRP, URIC #### [facility] [address] [place] [address] Dr. Stevie Torres PROF CHEM 8 (BAS METB)on Anion gap [Moles/Vol] 8.7 mmol/L Normal [facility] Comment on above: Performed By: #### B MP, CRP, URIC #### [facility] [address] [place] [address] Dr. Stevie Torres Calcium [Mass/Vol] 8.9 mg/dL Normal 8.5-10.1 [facility] Comment on above: Performed By: #### B MP, CRP, URIC #### [facility] [address] [place] [address] Dr. Stevie Torres Chloride [Moles/Vol] 98 mmol/L Normal 98-107 [facility] Comment on above: Performed By: #### B MP, CRP, URIC #### [facility] [address] [place] [address] Dr. Stevie Torres CO2 [Moles/Vol] 33.6 mmol/L Critically high 21.0-32.0 [facility] Comment on above: Performed By: #### B MP, CRP, URIC #### [facility] [address] [place] [address] Dr. Stevie Torres Creatinine [Mass/Vol] 1.54 mg/dL Critically high 0.55-1.02 [facility] Comment on above: Performed By: #### B MP, CRP, URIC #### [facility] [address] [place] [address] Dr. Stevie Torres EGFR-AF CAMBODIAN 40 mL/min/1.73m2 Critically low >=60 [facility] Comment on above: Performed By: #### B MP, CRP, URIC #### [facility] [address] [place] [address] Dr. Stevie Torres EGFR-NON AF [place]IAN 33 mL/min/1.73m2 Critically low >=60 [facility] Comment on above: Performed By: #### B MP, CRP, URIC #### [facility] [address] [place] [address] Dr. Stevie Torres Glucose [Mass/Vol] 143 mg/dL Critically high 74-106 T [facility] Comment on above: Performed By: #### B MP, CRP, URIC #### [facility] [address] [place] [address] Dr. Stevie Torres Potassium [Moles/Vol] 4.3 mmol/L Normal 3.5-5.1 [facility] Comment on above: Performed By: #### B MP, CRP, URIC #### [facility] [address] [place] [address] Dr. Stevie Torres Sodium [Moles/Vol] 136 mmol/L Normal 136-145 [facility] Comment on above: Performed By: #### B MP, CRP, URIC #### [facility] [address] [place] [address] Dr. Stevie Torres Urea nitrogen [Mass/Vol] 19.0 mg/dL Critically high 7.0-18.0 [facility] Comment on above: Performed By: #### B MP, CRP, URIC #### [facility] [address] [place] [address] Dr. Stevie Torres Urea nitrogen/Creatinine [Mass ratio] 12.3 mg/mg Normal [facility] Comment on above: Performed By: #### B MP, CRP, URIC #### [facility] [address] [place] [address] Dr. Stevie Torres [facility] 18 mm/hr Normal <=30 [facility] Comment on above: Performed By: #### S EDR #### [facility] [address] [place] [address] Dr. Stevie Torres URIC ACID SERUMon 10-18-2022 Urate [Mass/Vol] 5.4 mg/dL Normal 2.6-6.0 [facility] Comment on above: Performed By: #### B MP, CRP, URIC #### [facility] [address] [place] [address] Dr. Stevie Torres XR FOOT RT MIN [...] by: JORGE WOODS Date: 2022-10-18 21:46 Normal [facility] Automated erythrocytes count in urine sediment (number/area)Ordered By: Rogelio De on 06-09-2022 RBC Auto (Urine sed) [#/Area] 0-1 [HPF] 0-[address] [facility] Automated leukocytes count i n urine sediment (number/area)Ordered By: Rogelio eD on 06-09-2022 WBC Auto (Urine sed) [#/Area] 20-49 [HPF] 0-[address] [facility] Bilirubin Test strip Ql (U)O rdered By: Rogelio De on 06-09-2022 Bilirubin Ql (U) Negative Negative [facility] Color Auto (U)Ordered By: Ab celeste De on 06-09-2022 Color (U) Yellow Yellow [facility] Ketones Auto test strip (U) [Mass/Vol]Ordered By: Rogelio De on 06-09-2022 Ketones (U) [Mass/Vol] Negative Negative [facility] - UrinalysisOrder ed By: Rogelio De on 06-09-2022 Hyaline casts LM Ql (Urine sed) 0-8 [LPF] 0-[address] [facility] Nitrite Test strip Ql (U)Ord ered By: Rogelio De on 06-09-2022 Nitrite Ql (U) Negative Negative [facility] Protein Auto test strip (U) [Mass/Vol]Ordered By: Rogelio De on 06-09-2022 Protein (U) [Mass/Vol] Negative Negative [facility] Specific gravity Auto test s trip (U) [Rel density]Ordered By: Rogelio De on 06-09-2022 Specific gravity (U) [Rel density] 1.010 1.001-1.[address] [facility] Squamous epithelial cells de tection in urine sediment by light microscopyOrdered By: Rogelio De on 06-09-2022 Epithelial cells.squamous LM Ql (Urine sed) 0-1 [HPF] 0-[address] [facility] Urine bacteria detection by automated methodOrdered By: Rogelio De on 06-09-2022 Bacteria Auto Ql (U) None seen None Seen [facility] Urine clarity by refractomet ry automatedOrdered By: Rogelio De on 06-09-2022 Clarity Refractometry automated (U) Clear Clear [facility] Urine glucose measurement by automated test strip (mass/volume)Ordered By: Rogelio De on 06-09-2022 Glucose Auto test strip (U) [Mass/Vol] Normal mg/dL Normal [facility] Urine hemoglobin detection b y automated test stripOrdered By: Rogelio De on 06-09-2022 Hemoglobin Auto test strip Ql (U) Negative Negative [facility] Urine leukocyte esterase det ection by automated test stripOrdered By: Rogelio De on 06-09-2022 Leukocyte esterase Auto test strip Ql (U) 4+ Negative [facility] Urobilinogen Auto test strip (U) [Mass/Vol]Ordered By: Rogelio De on 06-09-2022 Urobilinogen (U) [Mass/Vol] Normal mg/dL Normal [facility] pH Auto test strip (U)Ordere d By: Rogelio De on 06-09-2022 pH (U) 5.5 [pH] 5.0-9.[address] [facility] Albumin [Mass/volume] in Ser um or PlasmaOrdered By: Rogelio De on 06-08-2022 Albumin [Mass/Vol] 3.0 g/dL 3.2-5.5 [facility] Creatinine and Glomerular fi ltration rate.predicted panel (S/P/Bld)Ordered By: Rogelio De on 06-08-2022 Creatinine [Mass/Vol] 1.02 mg/dL 0.44-1.03 [facility] Estimated glomerular filtrat ion rate (GFR) non- AmericanOrdered By: Rogelio De on 06-08-2022 GFR/1.73 sq M.predicted among non-blacks MDRD (S/P/Bld) [Vol rate/Area] 53 mL/Min [facility] Globulin Calc (S) [Mass/Vol] Ordered By: Rogelio De on 06-08-2022 Globulin (S) [Mass/Vol] 2.2 g/dL [facility] Glucose mean value [Mass/vol ume] in Blood Estimated from glycated hemoglobinOrdered By: Rogelio De on 06-08-2022 Average glucose Estimated from glycated hemoglobin (Bld) [Mass/Vol] 126 mg/dL [facility] Hemoglobin A1c percentageOrd ered By: Rogelio De on 06-08-2022 HbA1c (Bld) [Mass fraction] 6.0 % 4.3-5.[address] [facility] Comment on above: Increased risk for d iabetes: 5.7 - 6.4diabetes: >6.4glycemic control for adults with diabetes: <7.0 No Panel InformationOrdered By: Rogelio De on 06-08-2022 Estimated GFR () > 60 mL/Min [facility] Comment on above: GFR estimated refere nce range: According to KDOQI guidelines, <60 ml/min/1.73m2 is sufficient to diagnose a patient with chronic kidney disease. Pharmacy Creatinine Clearance (Chem 36.[address] [facility] Protein [Mass/volume] in Ser um or PlasmaOrdered By: Rogelio De on 06-08-2022 Protein [Mass/Vol] 5.2 g/dL 6.1-7.9 [facility] Serum or plasma alanine hancock otransferase measurement without P-5'-P (enzymatic activiOrdered By: Rogelio De on 06-08-2022 ALT No additional P-5'-P [Catalytic activity/Vol] 15 U/L 10-[address] [facility] Serum or plasma albumin/glob ulin mass ratioOrdered By: Rogelio De on 06-08-2022 Albumin/Globulin [Mass ratio] 1.4 {ratio} [facility] Serum or plasma alkaline miguel ángel sphatase measurement (enzymatic activity/volume)Ordered By: Rogelio De on 06-08-2022 ALP [Catalytic activity/Vol] 53 U/L 32-[address] [facility] Serum or plasma anion gap de terminationOrdered By: Rogelio De on 06-08-2022 Anion gap [Moles/Vol] 9.5 mmol/L 6.0-15.0 [facility] Serum or plasma aspartate am inotransferase measurement (enzymatic activity/volume)Ordered By: Rogelio De on 06-08-2022 AST [Catalytic activity/Vol] 16 U/L 10-[address] [facility] Serum or plasma calcium dimitris urement (mass/volume)Ordered By: Rogelio De on 06-08-2022 Calcium [Mass/Vol] 9.2 mg/dL 8.2-10.2 [facility] Serum or plasma chloride jeison surement (moles/volume)Ordered By: Rogelio De on 06-08-2022 Chloride [Moles/Vol] 96 mmol/L 95-114 [facility] Serum or plasma glucose dimitris urement (mass/volume)Ordered By: Rogelio De on 06-08-2022 Glucose [Mass/Vol] 102 mg/dL 70-100 [facility] Comment on above: ADA recommended refe rence rangeRandom Glucose Reference Range is dependent on time and content of last meal. Glucose of more than 200 mg/dL in a nonstressed, ambulatory subject supports the diagnosis of Diabetes Mellitus. Serum or plasma potassium me asurement (moles/volume)Ordered By: Rogelio De on 06-08-2022 Potassium [Moles/Vol] 4.3 mmol/L 3.5-5.1 [facility] Serum or plasma sodium measu rement (moles/volume)Ordered By: Rogelio De on 06-08-2022 Sodium [Moles/Vol] 131 mmol/L 136-146 [facility] Serum or plasma total biliru bin measurement (mass/volume)Ordered By: Rogelio De on 06-08-2022 Bilirubin [Mass/Vol] 0.3 mg/dL 0.3-1.2 [facility] Serum or plasma total carbon dioxide measurement (moles/volume)Ordered By: Rogelio De on 06-08-2022 CO2 [Moles/Vol] 29.8 mmol/L 22.0-30.0 [facility] Serum or plasma urea nitroge n measurement (mass/volume)Ordered By: Rogelio De on 06-08-2022 Urea nitrogen [Mass/Vol] 28 mg/dL 9-[address] [facility] Cholesterol [Mass/volume] in Serum or PlasmaOrdered By: Rogelio De on 05-26-2022 Cholesterol [Mass/Vol] 154 mg/dL 140-200 [facility] Comment on above: Chol less than 200 m g/dl low riskChol 201-239 mg/dl borderline riskChol 240 mg/dl and greater high risk Cholesterol in LDL Calc [Mas s/Vol]Ordered By: Rogelio De on 05-26-2022 Cholesterol in LDL [Mass/Vol] 73 mg/dL 0-[address] [facility] Comment on above: LDL ATP III CLASSIFI CATIONLDL less than 100 mg/dL OptimalLDL 100-129 mg/dL Near or above optimalLDL 130-159 mg/dL Borderline highLDL 160-189 mg/dL HighLDL greater than 189 mg/dL Very high Cholesterol in VLDL Calc [Ma ss/Vol]Ordered By: Rogelio De on 05-26-2022 Cholesterol in VLDL [Mass/Vol] 13 mg/dL [facility] No Panel InformationOrdered By: Rogelio De on 05-26-2022 25-Hydroxy Vitamin D Total 57.1 ng/mL 30-[address] [facility] Comment on above: VITAMIN D STATUS 25( [place])VITAMIN D RANGE (ng/mL) Deficient <20 Insufficient 20 to <30Sufficient 30 to 100Reference: Mahesh MF,Catalina MCNEAL, Omega GODDARD, et al. Evaluation,treatment, and prevention of vitamin D deficiency; an Endocrine Society clinical practice guideline. JCEM. 2010; 96(7):1911-30. Serum or plasma high density lipoprotein (HDL) cholesterol measurementOrdered By: Rogelio De on 05-26-2022 Cholesterol in HDL [Mass/Vol] 67 mg/dL 35-[address] [facility] Comment on above: HDL CHOL ATP-III CLA SSIFICATION Cardiovascular RiskHDL > or equal to 60 mg/dL LOWHDL < 40 mg/dL HIGH Serum or plasma total choles terol/high density lipoprotein (HDL) cholesterol mass ratOrdered By: Rogelio De on 05-26-2022 Cholesterol.total/Chol esterol in HDL [Mass ratio] 2.3 {ratio} <5.[address] [facility] TSH DL <= 0.005 mIU/L QnOrde red By: Rogelio De on 05-26-2022 TSH Qn 0.56 m[IU]/L 0.45-5.[address] [facility] Triglyceride [Mass/volume] i n Serum or PlasmaOrdered By: Rogelio De on 05-26-2022 Triglyceride [Mass/Vol] 69 mg/dL 35-[address] [facility] Comment on above: TRIG ATP III CLASSIF ICATIONTRIG less than 150 mg/dL NormalTRIG 150-199 mg/dL Borderline highTRIG 200-500 mg/dL High TRIG greater than 500 mg/dL Very highStandard traceable to the Center for Disease Conrtrol and Prevention (CDC) test method. Basophils Auto (Bld) [#/Vol] Ordered By: Rome Luciano on 05-25-2022 Basophils (Bld) [#/Vol] 0.1 10*3/uL 0.0-0.[address] [facility] Basophils/100 WBC Auto (Bld) Ordered By: Rome Daromar on 05-25-2022 Basophils/100 WBC (Bld) 0.6 % . [facility] Eosinophils Auto (Bld) [#/Vo l]Ordered By: Obyanickdalakshmi Vegaomar on 05-25-2022 Eosinophils (Bld) [#/Vol] 0.1 10*3/uL 0.0-0.[address] [facility] Eosinophils/100 WBC Auto (Bl d)Ordered By: Obyanickdah Garyomar on 05-25-2022 Eosinophils/100 WBC (Bld) 0.6 % . [facility] Erythrocyte distribution wid th Auto (RBC) [Ratio]Ordered By: [facility] Garyomar on 05-25-2022 Erythrocyte distribution width (RBC) [Ratio] 12.2 % 11.9-15.[address] [facility] Hematocrit Auto (Bld) [Volum e fraction]Ordered By: [facility] Garyomar on 05-25-2022 Hematocrit (Bld) [Volume fraction] 39.4 % 34.0-46.[address] [facility] Hemoglobin [Mass/volume] in BloodOrdered By: yanickdalakshmi Vegaomar on 05-25-2022 Hemoglobin (Bld) [Mass/Vol] 13.0 g/dL 11.8-15.[address] [facility] Leukocytes [#/volume] correc kenyatta for nucleated erythrocytes in Blood by Automated counOrdered By: [facility] Garyomar on 05-25-2022 WBC corrected for nucl RBC Auto (Bld) [#/Vol] 11.1 10*3/uL 3.8-11.[address] [facility] Lymphocytes Auto (Bld) [#/Vo l]Ordered By: Obyanickdah Garyomar on 05-25-2022 Lymphocytes (Bld) [#/Vol] 1.4 10*3/uL 1.00-4.[address] [facility] Lymphocytes/100 WBC Auto (Bl d)Ordered By: Obyanickdah Daromar on 05-25-2022 Lymphocytes/100 WBC (Bld) 12.4 % . [facility] MCH Auto (RBC) [Entitic mass ]Ordered By: Obyanickdah Daromar on 05-25-2022 MCH (RBC) [Entitic mass] 30.9 pg 24.7-34.[address] [facility] MCHC Auto (RBC) [Mass/Vol]Or dered By: Rome Luciano on 05-25-2022 MCHC (RBC) [Mass/Vol] 32.9 g/dL 32.0-35.0 [facility] MCV Auto (RBC) [Entitic vol] Ordered By: Rome Luciano on 05-25-2022 MCV (RBC) [Entitic vol] 94.0 fL 80-[address] [facility] MICRO OTHER TESTSOrdered By: Luis Trotter on 05-25-2022 Rapid COV Int NEG [place] (05/25/22 2:11 AM) Normal [facility] Rapid COV Int POS [place]l [place] (05/25/22 2:11 AM) Normal [facility] [place] [facility] SARS-CoV+SARS-CoV-2 (COVID-19) Ag IA.rapid Ql (Resp) Not Detected (05/25/22 2:11 AM) Normal Not Detected [facility] Monocytes Auto (Bld) [#/Vol] Ordered By: Rome Luciano on 05-25-2022 Monocytes (Bld) [#/Vol] 0.9 10*3/uL 0.0-0.[address] [facility] Monocytes/100 WBC Auto (Bld) Ordered By: Rome Luciano on 05-25-2022 Monocytes/100 WBC (Bld) 7.8 % . [facility] Neutrophils Auto (Bld) [#/Vo l]Ordered By: Rome Luciano on 05-25-2022 Neutrophils (Bld) [#/Vol] 8.7 10*3/uL 1.8-7.[address] [facility] Neutrophils/100 WBC Auto (Bl d)Ordered By: Rome Luciano on 05-25-2022 Neutrophils/100 WBC (Bld) 78.6 % . [facility] Nucleated erythrocytes [Pres ence] in Blood by Automated countOrdered By: Rome Luciano on 05-25-2022 Nucleated RBC Auto Ql (Bld) 0.0 /100{WBC} 0-0.[address] [facility] Platelet mean volume Auto (B ld) [Entitic vol]Ordered By: Obaydah Daromar on 05-25-2022 Platelet mean volume (Bld) [Entitic vol] 7.1 fL 6.3-10.[address] [facility] Platelets Auto (Bld) [#/Vol] Ordered By: Obaydah Daromar on 05-25-2022 Platelets (Bld) [#/Vol] 219 10*3/uL 150-[address] [facility] RBC Auto (Bld) [#/Vol]Ordere d By: Obaydah Daromar on 05-25-2022 RBC (Bld) [#/Vol] 4.19 10*6/uL 3.60-5.00 [facility] WBC Auto (Bld) [#/Vol]Ordere d By: Obaydah Daromar on 05-25-2022 WBC (Bld) [#/Vol] 11.1 10*3/uL 3.8-11.6 [facility] CBC AUTO DIFFon 05-24-2022 BASO # 0.1 103/ul Normal 0.0-0.1 [facility] Comment on above: Performed By: #### C BC #### [facility] [address] [place] [address] Dr. Stevie Torres Basophils/100 WBC (Bld) 0.6 % Normal 0.2-2.0 [facility] Comment on above: Performed By: #### C BC #### [facility] [address] [place] [address] Dr. Stevie Torres EO # 0.1 103/ul Normal 0.0-0.7 [facility] Comment on above: Performed By: #### C BC #### [facility] [address] [address] [address] Stevie Torres Eosinophils/100 WBC (Bld) 0.8 % Critically low 0.9-7.0 [facility] Comment on above: Performed By: #### C BC #### [facility] [address] [place] [address] Dr. Stevie Torres Erythrocyte distribution width (RBC) [Ratio] 11.6 % Normal 11.0-15.0 [facility] Comment on above: Performed By: #### C BC #### [facility] [address] [place] [address] Dr. Stevie Torres Hematocrit (Bld) [Volume fraction] 38.4 % Normal 36.0-48.0 [facility] Comment on above: Performed By: #### C BC #### [facility] [address] [place] [address] Dr. Stevie Torres Hemoglobin (Bld) [Mass/Vol] 12.5 g/dL Normal 12.0-16.0 [facility] Comment on above: Performed By: #### C BC #### [facility] [address] [place] [address] Dr. Stevie Torres IG # 0.05 10e3/ul Critically high 0.00-0.03 [facility] Comment on above: Performed By: #### C BC #### [facility] [address] [place] [address] Dr. Stevie Torres IG % 0.4 % Normal 0.0-0.5 [facility] Comment on above: Performed By: #### C BC #### [facility] [address] [place] [address] Dr. Stevie Torres LYMPH # 1.7 103/ul Normal 1.2-3.8 [facility] Comment on above: Performed By: #### C BC #### [facility] [address] [place] [address] Dr. Stevie Torres Lymphocytes/100 WBC (Bld) 15.5 % Critically low 20.5-60.0 [facility] Comment on above: Performed By: #### C BC #### [facility] [address] [place] [address] Dr. Stevie Torres MANUAL DIFF REQ NO Normal [facility] Comment on above: Performed By: #### C BC #### [facility] [address] [place] [address] Dr. Stevie Torres MCH (RBC) [Entitic mass] 31.2 pg Normal 26.7-34.0 [facility] Comment on above: Performed By: #### C BC #### [facility] [address] [address] [address] Stevie Torres MCHC (RBC) [Mass/Vol] 32.6 g/dL Normal 29.9-35.2 [facility] Comment on above: Performed By: #### C BC #### [facility] [address] [address] [address] Stevie Torres MCV (RBC) [Entitic vol] 95.8 fL Normal 81.0-99.0 [facility] Comment on above: Performed By: #### C BC #### [facility] [address] [address] [address] Stevie Torrse MONO # 1.1 103/ul Critically high 0.3-0.8 [facility] Comment on above: Performed By: #### C BC #### [facility] [address] [address] [address] Stevie Torres Monocytes/100 WBC (Bld) 9.6 % Normal 1.7-12.0 [facility] Comment on above: Performed By: #### C BC #### [facility] [address] [address] [address] Stevie Torres NEUT # 8.2 103/ul Critically high 1.4-6.5 [facility] Comment on above: Performed By: #### C BC #### [facility] [address] [address] [address] Stevie Torres Neutrophils/100 WBC (Bld) 73.1 % Normal 43.0-75.0 [facility] Comment on above: Performed By: #### C BC #### [facility] [address] [address] [address] Stevie Torres Platelet mean volume (Bld) [Entitic vol] 8.4 fL Critically low 9.5-13.5 [facility] Comment on above: Performed By: #### C BC #### [facility] [address] [address] [address] Stevie Torres PLT 223 103/ul Normal 150-450 [facility] Comment on above: Performed By: #### C BC #### [facility] [address] [place], [place] [address] Dr. Stevie Torres RBC 4.01 106/ul Critically low 4.20-5.40 [facility] Comment on above: Performed By: #### C BC #### [facility] [address] [place], [place] [address] Dr. Stevie Torres WBC 11.2 103/ul Critically high 4.0-11.0 [facility] Comment on above: Performed By: #### C BC #### [facility] [address] [place], [place] [address] Dr. Stevie Torres CHEMISTRYOrdered By: SYSTEM SYSTEM [...] Normal 6 - 16 mEq/L [facility] AST [Catalytic activity/Vol] 29 [iU]/d Normal 5 - 43 Int._Unit/ L [facility] Bilirubin [Mass/Vol] 1.0 mg/dL Normal 0.0 - 1 .1 mg/dL [facility] Calcium [Mass/Vol] 9.5 mg/dL Normal 8.9 - 11. 1 mg/dL [facility] Chloride [Moles/Vol] 98 mmol/L Low 101 - 1 11 mmol/L [facility] CO2 [Moles/Vol] 26 mmol/L Normal 21 - 31 mmol/L [facility] Creatinine [Mass/Vol] 1.1 mg/dL Normal 0.5 - 1.3 mg/dL [facility] Ethanol [Mass/Vol] mg/dL Normal <=7mg/dL [facility] GFR/1.73 sq M.predicted among blacks MDRD (S/P/Bld) [Vol rate/Area] 59 mL/min/1.73 m2 Normal >=59mL/min /1.73 m2 [facility] Chem S GFR/1.73 sq M.predicted among non-blacks MDRD (S/P/Bld) [Vol rate/Area] 49 mL/min/1.73 m2 Low >=59mL/min /1.73 m2 [facility] Chem S Globulin (S) [Mass/Vol] 2.8 g/dL Normal 1.4 - 4.0 gm/dL [facility] Glucose [Mass/Vol] 98 mg/dL Normal 55 - 199 mg/dL [facility] Potassium [Moles/Vol] 4.1 mmol/L Normal 3.5 - 5.3 mmol/L [facility] Protein [Mass/Vol] 7.2 g/dL Normal 6.0 - 7.8 gm/dL [facility] Sodium [Moles/Vol] 133 mmol/L Low 135 - 145 mmol/L [facility] Urea nitrogen [Mass/Vol] 19 mg/dL Normal 5 - 21 mg/dL [facility] Urea nitrogen/Creatinine [Mass ratio] 17 mg/mg Normal 10 - 20 [facility] ER URINE PROFILEon 2 Bilirubin Ql (U) Negative Normal NEGATIVE [facility] Comment on above: Performed By: #### E RUR #### [facility] [address] [place] [address] Dr. Stevie Torres Clarity (U) CLEAR Normal CLEAR [facility] Comment on above: Performed By: #### E RUR #### [facility] [address] [place] [address] Dr. Stevie Torres Color (U) LT. YELLOW Normal YELLOW [facility] Comment on above: Performed By: #### E RUR #### [facility] [address] [place] [address] Dr. Stevie Torres ERUAHD A micrscopic examina tion will be performed if indicated. Normal [facility] Comment on above: Performed By: #### E RUR #### [facility] [address] [place] [address] Dr. Stevie Torres Glucose Ql (U) 500 mg/dl Abnormal NEGATIVE [facility] Comment on above: Performed By: #### E RUR #### [facility] [address] [place] [address] Dr. Stevie Torres Hemoglobin Ql (U) Negative Normal NEGATIVE [facility] Comment on above: Performed By: #### E RUR #### [facility] [address] [place] [address] Dr. Stevie Torres Ketones Ql (U) Negative Normal NEGATIVE [facility] Comment on above: Performed By: #### E RUR #### [facility] [address] [place] [address] Dr. Stevie Torres LEUKOCYTES Negative Normal NEGATIVE [facility] Comment on above: Performed By: #### E RUR #### [facility] [address] [place] [address] Dr. Stevie Torres Nitrite Ql (U) Negative Normal NEGATIVE [facility] Comment on above: Performed By: #### E RUR #### [facility] [address] [place] [address] Dr. Stevie Torres pH (U) 5.0 [pH] Normal 5-9 [facility] Comment on above: Performed By: #### E RUR #### [facility] [address] [place] [address] Dr. Stevie Torres SPEC GRAVITY >=1.030 Abnormal 1.005-<=1. 025 [facility] Comment on above: Performed By: #### E RUR #### [facility] [address] [place] [address] Dr. Stevie Torres UA PROTEIN Negative Normal NEGATIVE/ TRACE [facility] Comment on above: Performed By: #### E RUR #### [facility] [address] [place] [address] Dr. Steive Torres UR MICRO IND NOT INDICATED Normal [facility] Comment on above: Performed By: #### E RUR #### [facility] [address] [place] [address] Dr. Stevie Torres Urobilinogen Qn (U) 0.2 {Rolan'U}/dL Normal 0.2 - 1. 0 [facility] Comment on above: Performed By: #### E RUR #### [facility] [address] [place] [address] Dr. Stevie Torres HEMATOLOGYOrdered By: SYSTEM SYSTEM [...] 11.0 E9/L Normal 4.0 - 11.0 E9/L [facility] HemeAutoSS PROF CHEM 8 (BAS METB)on Anion gap [Moles/Vol] 12.6 mmol/L Normal [facility] Comment on above: Performed By: #### TAMMIE LOVELL #### [facility] [address] [place] [address] Dr. Stevie Torres Calcium [Mass/Vol] 9.1 mg/dL Normal 8.5-10.1 [facility] Comment on above: Performed By: #### FRITZ LOVELLRO #### [facility] [address] [place] [address] Dr. Stevie Torres Chloride [Moles/Vol] 97 mmol/L Critically low 98-107 [facility] Comment on above: Performed By: #### FRITZ LOVELLRO #### [facility] [address] [place] [address] Dr. Stevie Torres CO2 [Moles/Vol] 29.6 mmol/L Normal 21.0-32.0 [facility] Comment on above: Performed By: #### MARY LOVELLICRO #### [facility] [address] [place] [address] Dr. Stevie Torres Creatinine [Mass/Vol] 1.22 mg/dL Critically high 0.55-1.02 [facility] Comment on above: Performed By: #### FRITZ LOVELLRO #### [facility] [address] [place] [address] Dr. Stevie Torres EGFR-AF CAMBODIAN 52 mL/min/1.73m2 Critically low >=60 [facility] Comment on above: Performed By: #### FRITZ LOVELLRO #### [facility] [address] [place] [address] Dr. Stevie Torres EGFR-NON AF CAMBODIAN 43 mL/min/1.73m2 Critically low >=60 [facility] Comment on above: Performed By: #### FRITZ LOVELLRO #### [facility] [address] [place] [address] Dr. Stevie Torres Glucose [Mass/Vol] 142 mg/dL Critically high 74-106 [facility] Comment on above: Performed By: #### Sarahi ORONA UMICRO #### [facility] [address] [place] [address] Dr. Stevie Torres Potassium [Moles/Vol] 4.2 mmol/L Normal 3.5-5.1 [facility] Comment on above: Performed By: #### MARY LOVELLICRO #### [facility] [address] [address] [address] Stevie Torres Sodium [Moles/Vol] 135 mmol/L Critically low 136-145 [facility] Comment on above: Performed By: #### E ADWOA, UMICRO #### [facility] [address] [address] [address] Stevie Torres Urea nitrogen [Mass/Vol] 28.0 mg/dL Critically high 7.0-18.0 [facility] Comment on above: Performed By: #### E ADWOA, UMICRO #### [facility] [address] [address] [address] Stevie Torres Urea nitrogen/Creatinine [Mass ratio] 23.0 mg/mg Normal [facility] Comment on above: Performed By: #### Sarahi ROONA, UMICRO #### [facility] [address] [place] [address] Dr. Stevie Torres TROPONIN, HIGH SENSITIVITYon 05-24-2022 HSTROP 15.5 pg/mL Normal 4.0-51.3 [facility] Comment on above: Result Comment: CUT- OFF POINTS HAVE BEEN ESTABLISHED BASED ON THE FOURTH UNIVERSAL DEFINITIONS OF MYOCARDIAL INFARCTION. THE UPPER REFERENCE LIMIT (URL) OF TROPONIN, DEFINED THE 99TH PERCENTILE OF cTnI DISTRIBUTION IN A REFERENCE POPULATION, HAS BEEN CONFIRMED THE DECISION THRESHOLD FOR LA DIAGNOSIS. Performed By: #### Sarahi ORONA, UMICRO #### [facility] [address] [place] [address] Dr. Stevie Torres URINALYSISOrdered By: Luis Trotter [...] PM) Normal Negative [facility] UA Auto SS [place].plasma/[place] .RBC (Bld) [Mass ratio] 0-3 /HPF Normal [...] [facility] UA Auto SS Urobilinogen Qn (U) [id number] {Rolan'U}/dL Normal 0.0 - 1.0 EU/dL [facility] UA Auto SS WBC Auto Ql (U) Negative (05/24/22 11:46 PM) Normal Negative [facility] UA Auto SS WBC LM.HPF (Urine sed) [#/Area] 0-5 /HPF Normal 0-5/HPF [facility] UA Auto SS CHEMISTRYOrdered By: Lab ROP User on 04-19-2022 Glucose [Mass/Vol] 121 mg/dL High 55 - 99 mg/dL [facility] POC Subsection Comment on above: Result Comment: Christina perea RN/ POC Device SN [id number] Invalid Interpretation Code [facility] POC Subsection POC User ID [id number] Invalid Interpretation Code [facility] POC Subsection POC Username LOU BOBBY Invalid Interpretation Code [facility] POC Subsection CHEMISTRYOrdered By: SYSTEM SYSTEM on [...] 45 mL/min/1.73 m2 Low >=59mL/min /1.73 m2 [facility] Chem S GFR/1.73 sq M.predicted among non-blacks MDRD (S/P/Bld) [Vol rate/Area] 37 mL/min/1.73 m2 Low >=59mL/min /1.73 m2 [facility] Chem S Glucose [Mass/Vol] 97 mg/dL Normal [...] ratio] 16 mg/mg Normal 10 - 20 [facility] Remisol CHEMISTRYOrdered By: SYSTEM SYSTEM on 04-18-2022 [...] 49 mL/min/1.73 m2 Low >=59mL/min /1.73 m2 [facility] Chem S GFR/1.73 sq M.predicted among non-blacks MDRD (S/P/Bld) [Vol rate/Area] 40 mL/min/1.73 m2 Low >=59mL/min /1.73 m2 [facility] Chem S Glucose [Mass/Vol] 92 mg/dL Normal 55 - 199 mg/dL [facility] Remisol Magnesium [Mass/Vol] 2.0 mg/dL Normal 1.3 - 2 .4 mg/dL [facility] Potassium [Moles/Vol] 4.1 mmol/L Normal 3.5 - 5.3 mmol/L [facility] Urea nitrogen [Mass/Vol] 18 mg/dL Normal 5 - 21 mg/dL [facility] Urea nitrogen/Creatinine [Mass ratio] 14 mg/mg Normal 10 - 20 [facility] Remisol CHEMISTRYOrdered By: Sabi Pardo se on 04-18-2022 Osmolality [Osmolality] 272 mosm/kg Low 275 - 295 mOsm/kg [facility] Man UA SS CHEMISTRYOrdered By: Kris marquez on 04-17-2022 Sodium (U) [Moles/Vol] 82 mmol/L Invalid Interpretation Code [facility] Remisol U Osmolality 312 mOsm/kg Normal 50 - 1400 mOsm/kg [facility] Man UA SS CHEMISTRYOrdered By: SYSTEM SYSTEM on 04-17-2022 Troponin I.cardiac [Mass/Vol] 2.40 pg/mL Low 10.10 - 27.10 pg/mL [facility] Remisol Troponin I.cardiac [Mass/Vol] pg/mL Low 10.10 - 27.10 pg/mL [facility] Remisol Troponin I.cardiac [Mass/Vol] 3.00 pg/mL Low [...] 49 mL/min/1.73 m2 Low >=59mL/min /1.73 m2 [facility] Chem S Glucose [Mass/Vol] 100 mg/dL Normal 55 - 199 mg/dL [facility] Potassium [Moles/Vol] 4.3 mmol/L Normal 3.5 - 5.3 mmol/L [facility] Urea nitrogen [Mass/Vol] 14 mg/dL Normal 5 - 21 mg/dL [facility] Urea nitrogen/Creatinine [Mass ratio] 13 mg/mg [...] PM) Normal Negative [facility] UA Auto SS [place].plasma/[place] .RBC (Bld) [Mass ratio] 0-3 /HPF Normal [...] Desc Clean Catch (04/17/22 12:00 PM) Normal [facility] UA Auto SS Urobilinogen Qn (U) [id number] {Rolan'U}/dL Normal 0.0 - 1.0 EU/dL [facility] UA Auto SS WBC Auto Ql (U) Negative (04/17/22 12:00 PM) Normal Negative [facility] Auto SS WBC LM.HPF (Urine sed) [#/Area] 0-5 /HPF Normal 0-5/HPF [facility] UA Auto SS CBC AUTO DIFFon 04-10-2022 BASO # 0.1 103/ul Normal 0.0-0.1 [facility] Comment on above: Performed By: #### C BC #### [facility] [address] [place], [place] [address] Dr. Stevie Torres Basophils/100 WBC (Bld) 1.2 % Normal 0.2-2.0 [facility] Comment on above: Performed By: #### C BC #### [facility] [address] [place], [place] [address] Dr. Stevie Torres EO # 0.2 103/ul Normal 0.0-0.7 [facility] Comment on above: Performed By: #### C BC #### [facility] [address] [place] [address] Dr. Stevie Torres Eosinophils/100 WBC (Bld) 2.2 % Normal 0.9-7.0 [facility] Comment on above: Performed By: #### C BC #### [facility] [address] [place] [address] Dr. Stevie Torres Erythrocyte distribution width (RBC) [Ratio] 11.9 % Normal 11.0-15.0 [facility] Comment on above: Performed By: #### C BC #### [facility] [address] [place] [address] Dr. Stevie Torres Hematocrit (Bld) [Volume fraction] 34.6 % Critically low 36.0-48.0 [facility] Comment on above: Performed By: #### C BC #### [facility] [address] [place] [address] Dr. Stevie Torres Hemoglobin (Bld) [Mass/Vol] 11.1 g/dL Critically low 12.0-16.0 [facility] Comment on above: Performed By: #### C BC #### [facility] [address] [place] [address] Dr. Stevie Torres IG # 0.03 10e3/ul Normal 0.00-0.03 [facility] Comment on above: Performed By: #### C BC #### [facility] [address] [place] [address] Dr. Stevie Torres IG % 0.4 % Normal 0.0-0.5 [facility] Comment on above: Performed By: #### C BC #### [facility] [address] [place] [address] Dr. Stevie Torres LYMPH # 1.7 103/ul Normal 1.2-3.8 [facility] Comment on above: Performed By: #### C BC #### [facility] [address] [place] [address] Dr. Stevie Torres Lymphocytes/100 WBC (Bld) 20.6 % Normal 20.5-60.0 [facility] Comment on above: Performed By: #### C BC #### [facility] [address] [place] [address] Dr. Stevie Torres MANUAL DIFF REQ NO Normal [facility] Comment on above: Performed By: #### C BC #### [facility] [address] [place] [address] Dr. Stevie Torres MCH (RBC) [Entitic mass] 31.1 pg Normal 26.7-34.0 [facility] Comment on above: Performed By: #### C BC #### [facility] [address] [place] [address] Dr. Stevei Torres MCHC (RBC) [Mass/Vol] 32.1 g/dL Normal 29.9-35.2 [facility] Comment on above: Performed By: #### C BC #### [facility] [address] [place] [address] Dr. Stevie Torres MCV (RBC) [Entitic vol] 96.9 fL Normal 81.0-99.0 [facility] Comment on above: Performed By: #### C BC #### [facility] [address] [place] [address] Dr. Stevie Torres MONO # 0.9 103/ul Critically high 0.3-0.8 [facility] Comment on above: Performed By: #### C BC #### [facility] [address] [place] [address] Dr. Stevie Torres Monocytes/100 WBC (Bld) 10.4 % Normal 1.7-12.0 [facility] Comment on above: Performed By: #### C BC #### [facility] [address] [place] [address] Dr. Stevie Torres NEUT # 5.5 103/ul Normal 1.4-6.5 [facility] Comment on above: Performed By: #### C BC #### [facility] [address] [place] [address] Dr. Stevie Torres Neutrophils/100 WBC (Bld) 65.2 % Normal 43.0-75.0 [facility] Comment on above: Performed By: #### C BC #### [facility] [address] [place] [address] Dr. Stevie Torres Platelet mean volume (Bld) [Entitic vol] 8.8 fL Critically low 9.5-13.5 [facility] Comment on above: Performed By: #### C BC #### [facility] [address] [place] [address] Dr. Stevie Torres PLT 221 103/ul Normal 150-450 [facility] Comment on above: Performed By: #### C BC #### [facility] [address] [place] [address] Dr. Stevie Torres RBC 3.57 106/ul Critically low 4.20-5.40 [facility] Comment on above: Performed By: #### C BC #### [facility] [address] [place] [address] Dr. Stevie Torres WBC 8.4 103/ul Normal 4.0-11.0 [facility] Comment on above: Performed By: #### C BC #### [facility] [address] [place] [address] Dr. Stevie Torres CULTURE URINEon 04-10-2022 CULTURE URINE Culture Observations : LIGHT GROWTH OF MIXED GENITAL MANUEL. NO POTENTIAL PATHOGENS SEEN. Normal [facility] Comment on above: Performed By: #### Sarahi ORONA UMICRO #### [facility] [address] [place] [address] Dr. Stevie Torres ER URINE PROFILEon 2 Bilirubin Ql (U) Unable to perform te sting due to color interference. Abnormal NEGATIVE [facility] Comment on above: Performed By: #### Sarahi ORONA UMICRO #### [facility] [address] [place] [address] Dr. Stevie Torres Clarity (U) CLEAR Normal CLEAR [facility] Comment on above: Performed By: #### Sarahi ORONA UMICRO #### [facility] [address] [place] [address] Dr. Stevie Torres Color (U) DK. ORANGE Abnormal YELLOW [facility] Comment on above: Performed By: #### E RUR, UMICRO #### [facility] [address] [place] [address] [address] Stevie Torres ERUJENNIFER A micrscopic examina tion will be performed if indicated. Normal [facility] Comment on above: Performed By: #### E RUR, UMICRO #### [facility] [address] [place] [address] Dr. Stevie Torres Glucose Ql (U) Unable to perform te sting due to color interference. Abnormal NEGATIVE [facility] Comment on above: Performed By: #### E RUR, UMICRO #### [facility] [address] [place] [address] Dr. Stevie Torres Hemoglobin Ql (U) Unable to perform te sting due to color interference. Abnormal NEGATIVE [facility] Comment on above: Performed By: #### E RUR, UMICRO #### [facility] [address] [place] [address] Dr. Stevie Torres Ketones Ql (U) Unable to perform te sting due to color interference. Abnormal NEGATIVE [facility] Comment on above: Performed By: #### E RUR, UMICRO #### [facility] [address] [place] [address] Dr. Stevie Torres LEUKOCYTES Unable to perform te sting due to color interference. Abnormal NEGATIVE [facility] Comment on above: Performed By: #### E RUR, UMICRO #### [facility] [address] [place] [address] Dr. Stevie Torres Nitrite Ql (U) Unable to perform te sting due to color interference. Abnormal NEGATIVE [facility] Comment on above: Performed By: #### E RUR, UMICRO #### [facility] [address] [place] [address] Dr. Stevie Torres pH Unable to perform te sting due to color interference. Abnormal 5-9 [facility] Comment on above: Performed By: #### E RUR, UMICRO #### [facility] [address] [place] [address] Dr. Stevie Torres SPEC GRAVITY 1.020 Normal 1.005-<=1. 025 [facility] Comment on above: Performed By: #### E RUR, UMICRO #### [facility] [address] [place] [address] [address] Stevie Torres UA PROTEIN Unable to perform te sting due to color interference. Normal NEGATIVE/ TRACE [facility] Comment on above: Performed By: #### E RUR, UMICRO #### [facility] [address] [place] [address] Dr. Stevie Torres UR MICRO IND INDICATED Normal [facility] Comment on above: Performed By: #### E RUR, UMICRO #### [facility] [address] [place] [address] Dr. Stevie Torres UROBILINOGEN Unable to perform te sting due to color interference. Normal 0.2 - 1.0 [facility] Comment on above: Performed By: #### E ADWOA, UMICRO #### [facility] [address] [place] [address] Dr. Stevie Torres PROF CHEM 8 (BAS METB)on Anion gap [Moles/Vol] 6.6 mmol/L Normal [facility] Comment on above: Performed By: #### C BC #### [facility] [address] [place] [address] Dr. Stevie Torres Calcium [Mass/Vol] 8.9 mg/dL Normal 8.5-10.1 [facility] Comment on above: Performed By: #### C BC #### [facility] [address] [place] [address] Dr. Stevie Torres Chloride [Moles/Vol] 97 mmol/L Critically low 98-107 [facility] Comment on above: Performed By: #### C BC #### [facility] [address] [place] [address] Dr. Stevie Torres CO2 [Moles/Vol] 32.3 mmol/L Critically high 21.0-32.0 [facility] Comment on above: Performed By: #### C BC #### [facility] [address] [place] [address] Dr. Stevie Torres Creatinine [Mass/Vol] 1.30 mg/dL Critically high 0.55-1.02 [facility] Comment on above: Performed By: #### C BC #### [facility] [address] [place] [address] [address] Stevie Torres EGFR-AF CAMBODIAN 49 mL/min/1.73m2 Critically low >=60 [facility] Comment on above: Performed By: #### C BC #### [facility] [address] [place] [address] [address] Stevie Torres EGFR-NON AF CAMBODIAN 40 mL/min/1.73m2 Critically low >=60 [facility] Comment on above: Performed By: #### C BC #### [facility] [address] [place] [address] [address] Stevie Torres Glucose [Mass/Vol] 102 mg/dL Normal 74-106 [facility] Comment on above: Performed By: #### C BC #### [facility] [address] [place] [address] Dr. Stevie Torres Potassium [Moles/Vol] 3.9 mmol/L Normal 3.5-5.1 [facility] Comment on above: Performed By: #### C BC #### [facility] [address] [place] [address] Dr. Stevie Torres Sodium [Moles/Vol] 132 mmol/L Critically low 136-145 [facility] Comment on above: Performed By: #### C BC #### [facility] [address] [place] [address] Dr. Stevie Torres Urea nitrogen [Mass/Vol] 30.0 mg/dL Critically high 7.0-18.0 [facility] Comment on above: Performed By: #### C BC #### [facility] [address] [place] [address] [address] Stevie Torres Urea nitrogen/Creatinine [Mass ratio] 23.1 mg/mg Normal [facility] Comment on above: Performed By: #### C BC #### [facility] [address] [place] [address] Dr. Stevie Torres URINE MICROSCOPIC ONLYon BACTERIA SMALL Abnormal NONE SEEN [facility] Comment on above: Performed By: #### E ADWOA, UMICRO #### [facility] [address] [place] [address] Dr. Stevie Torres Bacteria identified Cx Nom (U) INDICATED Normal [facility] Comment on above: Performed By: #### E WISAMR, UMICRO #### [facility] [address] [place] [address] Dr. Stevie Torres CAST NONE SEEN Normal NONE SEEN [facility] Comment on above: Performed By: #### E ADWOA, UMICRO #### [facility] [address] [place] [address] Dr. Stevie Torres Crystals LM Nom (Urine sed) NONE SEEN Normal NONE SEEN [facility] Comment on above: Performed By: #### E ADWOA, UMICRO #### [facility] [address] [place] [address] Dr. Stevie Torres Epithelial cells LM Ql (Urine sed) FEW Abnormal NONE SEEN /RARE [facility] Comment on above: Performed By: #### Sarahi ORONA UMICRO #### [facility] [address] [place] [address] Dr. Stevie Torres MUCOUS NONE SEEN Normal NONE SEEN [facility] Comment on above: Performed By: #### Sarahi ORONA UMICRO #### [facility] [address] [place] [address] Dr. Stevie Torres RBC 10-20 Abnormal 0-2 [facility] Comment on above: Performed By: #### Sarahi ORONA UMICRO #### [facility] [address] [place] [address] Dr. Stevie Torres WBC 2-5 Abnormal NONE SEEN [facility] Comment on above: Performed By: #### Sarahi ORONA UMICRO #### [facility] [address] [place] [address] Dr. 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 She stated in a previous phone call that the last batch of catheters were stolen out of her car. Reached out to [facility] medical to see what needs to take place for catheters to be delivered to patient at this time. Patients son will be coming to [facility] to slate picker sample catheters, until patient [...] Fully Assessed Reason for Visit: Patient Question [9297] Prescriptions as of 04/01/2022 - ferrous sulfate [...] Status:Closed by ADRIANE FISCHER on 04/01/22 Normal [facility] DRUG SCREEN RAPID (URINE)on 02-18-2022 AMP Negative Normal NEGATIVE [facility] Comment on above: Performed By: #### Sarahi ORONA UMICRO #### [facility] [address] [place] [address] Dr. Stevie Torres BAR Negative Normal NEGATIVE [facility] Comment on above: Performed By: #### E RUYesenia UMICRO #### [facility] [address] [place] [address] Dr. Stevie Torres BUP Negative Normal NEGATIVE [facility] Comment on above: Performed By: #### Sarahi ORONA UMICRO #### [facility] [address] [place] [address] Dr. Stevie Torres BZO Positive Abnormal NEGATIVE [facility] Comment on above: Performed By: #### Sarahi ORONA UMICRO #### [facility] [address] [place] [address] Dr. Stevie Torres JOHN Negative Normal NEGATIVE [facility] Comment on above: Performed By: #### E RUR UMICRO #### [facility] [address] [place] [address] Dr. Stevie Torres CUT-OFFS SEE BELOW Normal [facility] Comment on above: Result Comment: AMP (Amphetamine): 500ng/mL, BAR (Barbituates): 200 ng/mL, BZO (Benzodiazepines): 150 ng/mL, BUP (Buprenorphine): 10 ng/mL, JOHN (Cocaine): 150 ng/mL, mAMP (Methamphetamine): 500 ng/mL, MTD (Methadone): 200 ng/mL, OPI (Opiates): 100 ng/mL, OXY (Oxycodone): 100 ng/mL, PCP (Phencyclidine): 25 ng/mL, PPX (Propoxyphene): 300 ng/mL, THC (Cannabinoids): 50 ng/mL, TCA (Trycyclic Antidepressants): 300 ng/mL Performed By: #### Sarahi ORONA UMICRO #### [facility] [address] [place] [address] Dr. Stevie Torres DRUG CUT HEADER DRUG CLASS TEST SYST EM CUT-OFF CONCENTRATIONS ARE FOLLOWS: Normal [facility] Comment on above: Performed By: #### Sarahi ORONA UMICRO #### [facility] [address] [place] [address] Dr. Stevie Torres mAMP Negative Normal NEGATIVE [facility] Comment on above: Performed By: #### Sarahi ORONA UMICRO #### [facility] [address] [place] [address] Dr. Stevie Torres MTD Negative Normal NEGATIVE [facility] Comment on above: Performed By: #### Sarahi ORONA UMICRO #### [facility] [address] [place] [address] Dr. Stevie Torres OPI Positive Abnormal NEGATIVE [facility] Comment on above: Performed By: #### Sarahi ORONA UMICRO #### [facility] [address] [place] [address] Dr. Stevie Torres OXY Negative Normal NEGATIVE [facility] Comment on above: Performed By: #### Sarahi ORONA UMICRO #### [facility] [address] [place] [address] Dr. Stevie Torres PCP Negative Normal NEGATIVE [facility] Comment on above: Performed By: #### Sarahi ORONA UMICRO #### [facility] [address] [place] [address] Dr. Stevie Torres PPX Negative Normal NEGATIVE [facility] Comment on above: Performed By: #### Sarahi ORONA UMICRO #### [facility] [address] [place] [address] Dr. Stevie Torres TCA Negative Normal NEGATIVE [facility] Comment on above: Performed By: #### E FRITZ ORONARO #### [facility] [address] [place], [place] [address] Dr. Stevie Torres THC Negative Normal NEGATIVE [facility] Comment on above: Performed By: #### E FRITZ ORONARO #### [facility] [address] [place], [place] [address] Dr. Stevie Torres CHEMISTRYOrdered By: SYSTEM SYSTEM [...] m2 FT Chem S Globulin (S) [Mass/Vol] 2.9 g/dL [...] 9.4 % Normal 4.0 - 14.0 % [facility] HemeAutoSS Monocytes/Leukocytes Auto (Bld) [Pure # fraction] 0.7 E9/L Normal 0.2 - 1.0 E9/L [facility] HemeAutoSS Neutrophils/100 WBC (Bld) 72.3 % Normal 36.0 - 75.0 % [facility] HemeAutoSS Neutrophils/Leukocytes Auto (Bld) [Pure # fraction] 5.7 E9/L Normal 2.0 - 7.5 E9/L [facility] HemeAutoSS HEMATOLOGYOrdered By: Jovanna Harding on 02-17-2022 Erythrocyte distribution width (RBC) [Ratio] 13.1 % Normal 10.9 - 14.2 % [facility] HemeAutoSS Hematocrit (Bld) [Volume fraction] 38.3 % Normal 34.0 - 46.0 % [facility] HemeAutoSS Hemoglobin (Bld) [Mass/Vol] 12.4 g/dL Normal 12.0 - 16.0 gm/dL [facility] HemeAutoSS MCH (RBC) [Entitic mass] 29.1 pg Normal 27.0 - 34.0 pg [facility] HemeAutoSS MCHC (RBC) [Mass/Vol] 32.3 g/dL Normal 31.4 - 36.0 gm/dL [facility] HemeAutoSS MCV (RBC) [Entitic vol] 89.9 fL Normal 80.0 - 100.0 fL [facility] HemeAutoSS Platelet mean volume (Bld) [Entitic vol] 7.1 fL Normal 6.4 - 10.8 fL [facility] HemeAutoSS Platelets (Bld) [#/Vol] 244.0 E9/L Normal 150.0 - 500.0 E9/L [facility] HemeAutoSS RBC (Bld) [#/Vol] 4.3 E12/L Normal 4.3 - 5.9 E12/L [facility] HemeAutoSS WBC corrected for nucl RBC Auto (Bld) [#/Vol] 7.9 E9/L Normal 4.0 - 11.0 E9/L [facility] HemeAutoSS Reference Laboratory Testing Ordered By: Klaudia Holland on 02-17-2022 Test Code 0000 Invalid Interpretation Code [facility] SendOuts Test Name urine drug scre Invalid Interpretation Code [facility] SendOuts URINALYSISOrdered By: Maggie Matthews on 02-13-2022 [...] PM) Normal Negative [facility] UA Auto SS [place].plasma/[place] .RBC (Bld) [Mass ratio] 0-3 /HPF Normal [...] [facility] UA Auto SS Urobilinogen Qn (U) [id number] {Rolan'U}/dL Normal 0.0 - 1.0 EU/dL [facility] UA Auto SS WBC Auto Ql (U) Negative (02/13/22 12:06 PM) Normal Negative [facility] UA Auto SS WBC LM.HPF (Urine sed) [#/Area] 0-5 /HPF Normal 0-5/HPF [facility] UA Auto SS Frank 02-11-2022 [facility] Telephone (UROLAV) -- MAEGAN DYE ([id number]) 1950 F Date Time Provider Department 02/11/22 QUYNH RAINES During your visit today, we recorded the following information about you: Sergio Guevara RN 02/11/2022 4:33 PM Signed Patient calling States she needs more Self Catheters Gets them from [phone] (?) States she used all of the Self Cath Catheters that she received from nurse office training Not sure how to get more Self Catheters, etc? Requesting call back maral please Call patient CELL [phone] Leave Detailed messages Anabelle Vasquez RN 02/11/2022 4:57 PM Signed Spoke to patient. She will contact [address] [place] [address], has [employer] flyer with the number on it to call if she hasn't been contacted. We reached out to rep from [address] [place] [address]. Told patient she can come into office for more catheters. Her son is not able to come in for her to get them. Will touch base with patient tomorrow. 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 PVR via scanner: 278ml Double void, with PVR of 250ml Patient taught how to do ISC successfully. Order placed through [address] [place] [address]. Orders to ISC after voiding three times daily and to follow up with CLINICAL DATA MANAGEMENT MANAGER in 3 months. Carried out orders of Dr. Raines, under his supervision. Instructed By Adriane Fischer [...] completed when applicable. Adriane Fischer LPN Viridiana Mau 02/07/2022 2:11 PM Signed CYSTOSCOPY Indications: Seen by Frantz Urinary Retention/incomplete bladder have been followed by Dr. Mancera in past last seen 10-02-21 urinary retention Choi catheters, placed in the ED and removed [...] Yes NO (more content not included)... Normal [facility] CHEMISTRYOrdered By: SYSTEM SYSTEM on 02-05-2022 Sodium [Moles/Vol] 132 mmol/L Low 135 - 145 mmol/L [facility] Remisol Sodium [Moles/Vol] 132 mmol/L Low 135 - 145 mmol/L [facility] Remisol CHEMISTRYOrdered By: SYSTEM SYSTEM on 02-04-2022 Sodium [Moles/Vol] 131 mmol/L Low 135 - 145 mmol/L [facility] Remisol Anion gap [Moles/Vol] 12 mmol/L Normal 6 - 16 mEq/L [facility] Remisol Calcium [Mass/Vol] 8.6 mg/dL Low 8.9 [...] 49 mL/min/1.73 m2 Low >=59mL/min /1.73 m2 [facility] Chem S Glucose [Mass/Vol] 104 mg/dL Normal [...] /1.73 m2 [facility] Chem S Glucose [Mass/Vol] 132 mg/dL Normal [...] 44 mL/min/1.73 m2 Low >=59mL/min /1.73 m2 [facility] Chem S Globulin (S) [Mass/Vol] 2.7 g/dL Normal 1.4 - 4.0 gm/dL [facility] Glucose [Mass/Vol] 118 mg/dL Normal 55 - 199 mg/dL [facility] Lipase [Catalytic activity/Vol] 34 U/L Normal 13 - 58 unit/L [facility] Potassium [Moles/Vol] 4.9 mmol/L Normal 3.5 - 5.3 mmol/L [facility] Protein [Mass/Vol] 6.3 g/dL Normal 6.0 - 7.8 gm/dL [facility] Urea nitrogen [Mass/Vol] 9 mg/dL Normal 5 - 21 mg/dL [facility] Urea nitrogen/Creatinine [Mass ratio] 8 mg/mg Low 10 - 20 [facility] Remisol CHEMISTRYOrdered By: Darlin Simpson on 02-03-2022 Osmolality [Osmolality] 256 mosm/kg Low 275 - 295 mOsm/kg [facility] Man UA SS U Osmolality 125 mOsm/kg Normal 50 - 1400 mOsm/kg [facility] Man UA SS CHEMISTRYOrdered By: Lilibeth Garcia on 02-03-2022 Potassium (U) [Moles/Vol] 8.9 mmol/L Invalid Interpretation Code [facility] Remisol Sodium (U) [Moles/Vol] 30 mmol/L Invalid Interpretation Code [facility] Remisol HEMATOLOGYOrdered By: SYSTEM SYSTEM on 02-03-2022 Basophils/100 WBC (Bld) 1.3 % Normal 0.0 - 2.0 % [facility] HemeAutoSS Basophils/Leukocytes Auto (Bld) [Pure # fraction] [...] 3.2 E9/L Normal 2.0 - 7.5 E9/L [facility] HemeAutoSS HEMATOLOGYOrdered By: Jovanna Harding on 02-03-2022 Erythrocyte distribution width (RBC) [Ratio] 13.5 % Normal 10.9 - 14.2 % [facility] HemeAutoSS Hematocrit (Bld) [Volume fraction] 36.6 % Normal 34.0 - 46.0 % [facility] HemeAutoSS Hemoglobin (Bld) [Mass/Vol] 12.0 g/dL Normal 12.0 - 16.0 gm/dL [facility] HemeAutoSS MCH (RBC) [Entitic mass] 29.2 pg [...] AM) Normal Negative [facility] UA Auto SS [place].plasma/[place] .RBC (Bld) [Mass ratio] 0-3 /HPF Normal [...] [facility] UA Auto SS UA Spec Desc Choi (02/03/22 11:17 AM) Normal [facility] UA Auto SS Urobilinogen Qn (U) 0.6215914 {Rolan'U}/dL Normal 0.0 - 1.0 EU/dL [facility] [...] PM) Normal Negative [facility] UA Auto SS [place].plasma/[place] .RBC (Bld) [Mass ratio] 0-3 /HPF Normal [...] [facility] UA Auto SS Urobilinogen Qn (U) 0.1052349 {Rolan'U}/dL Normal 0.0 - 1.0 EU/dL [facility] [...] AM) Normal Negative [facility] UA Auto SS [place].plasma/[place] .RBC (Bld) [Mass ratio] 4-20 /HPF Normal [...] Spec Desc Catheter (01/14/22 10:10 AM) Normal [facility] UA Auto SS Urobilinogen Qn (U) 0.7080114 {Rolan'U}/dL Normal 0.0 - 1.0 EU/dL [facility] UA Auto SS WBC Auto Ql (U) 3+ *ABN* (01/14/22 10:10 AM) Invalid Interpretation Code Negative [facility] Auto SS WBC LM.HPF (Urine sed) [#/Area] 6-15 /HPF Invalid Interpretation Code 0-5/HPF [facility] UA Auto SS CHEMISTRYOrdered By: SYSTEM SYSTEM [...] 1.0 mg/dL Normal 0.5 - 1.3 mg/dL [facility] GFR/1.73 sq M.predicted among blacks MDRD (S/P/Bld) [Vol rate/Area] mL/min/1.73 m2 Normal >=59mL/min /1.73 m2 [facility] Chem S GFR/1.73 sq M.predicted among non-blacks MDRD (S/P/Bld) [Vol rate/Area] 54 mL/min/1.73 m2 Low >=59mL/min /1.73 m2 [facility] Chem S Glucose [Mass/Vol] 102 mg/dL Normal 55 - 199 mg/dL [facility] Potassium [Moles/Vol] 4.1 mmol/L Normal 3.5 - 5.3 mmol/L [facility] Sodium [Moles/Vol] 129 mmol/L Low 135 - 145 mmol/L [facility] Urea nitrogen [Mass/Vol] 8 mg/dL Normal 5 - 21 mg/dL [facility] Urea nitrogen/Creatinine [Mass ratio] 8 mg/mg Low 10 - 20 [facility] Remisol HEMATOLOGYOrdered By: SYSTEM SYSTEM on 12-17-2021 Basophils/100 WBC (Bld) 2.0 % Normal 0.0 - 2.0 % [facility] HemeAutoSS Basophils/Leukocytes Auto (Bld) [Pure # fraction] [...] m2 [facility] Chem S Globulin (S) [Mass/Vol] 2.5 g/dL [...] 7.5 E9/L [facility] HemeAutoSS URINALYSISOrdered By: Lilibeth Garcia on 12-16-2021 Bilirubin Ql (U) Negative (12/16/21 [...] AM) Normal Negative [facility] UA Auto SS [place].plasma/[place] .RBC (Bld) [Mass ratio] 0-3 /HPF Normal [...] [facility] UA Auto SS Urobilinogen Qn (U) 0.8457951 {Rolan'U}/dL Normal 0.0 - 1.0 EU/dL [facility] UA Auto SS WBC Auto Ql (U) Negative (12/16/21 8:00 AM) Normal Negative [facility] UA Auto SS WBC LM.HPF (Urine sed) [#/Area] 0-5 /HPF Normal 0-5/HPF [facility] UA Auto SS URINALYSISOrdered By: Klaudia Holland on 12-15-2021 Bilirubin Ql (U) Negative (12/15/21 [...] PM) Normal Negative [facility] UA Auto SS [place].plasma/[place] .RBC (Bld) [Mass ratio] 0-3 /HPF Normal [...] [facility] UA Auto SS Urobilinogen Qn (U) 0.7341795 {Rolan'U}/dL Normal 0.0 - 1.0 EU/dL [facility] [...] AM) Normal Negative [facility] UA Auto SS [place].plasma/[place] .RBC (Bld) [Mass ratio] 0-3 /HPF Normal [...] AM) Invalid Interpretation Code 1.005 - 1.030 [facility] UA Auto SS UA Spec Desc Clean Catch (12/14/21 9:08 AM) Normal [facility] UA Auto SS Urobilinogen Qn (U) 0.0067035 {Rolan'U}/dL Normal 0.0 - 1.0 EU/dL [facility] UA Auto SS WBC Auto Ql (U) Negative (12/14/21 9:08 AM) Normal Negative [facility] UA Auto SS WBC LM.HPF (Urine sed) [#/Area] 0-5 /HPF Normal 0-5/HPF [facility] UA Auto SS URINE CULTUREon 12-06-2021 Bacteria identified Cx Nom (U) No growth (<1,000 CFU/ml) [facility] Urinalysis complete panel (U )on 12-05-2021 Bilirubin Ql (U) Negative Negative [facility] Clarity (Unsp spec) Clear Clear [facility] Color (U) Dark Latasha Abnormal Yellow [facility] Glucose Test strip (U) [Mass/Vol] Negative Negative [facility] Hemoglobin Ql (U) Negative Negative [facility] Ketones Ql (U) Negative Negative [facility] Leukocyte esterase Test strip Ql (U) Negative Negative [facility] Nitrite Ql (U) Positive Abnormal Negative [facility] pH (U) 7.0 [pH] 5.0 - 8.0 [facility] Protein (U) [Mass/Vol] Negative Negative [facility] RBC LM.HPF (Urine sed) [#/Area] 0-3 /HPF 0-3 /HPF [facility] Specific gravity (U) [Rel density] 1.006 1.005 - 1.030 [facility] Urobilinogen Ql (U) 2+ Abnormal Negative [facility] WBC LM.HPF (Urine sed) [#/Area] 0-5 /HPF 0-5 /HPF [facility] CULTURE URINEon 12-03-2021 CULTURE URINE Culture Observations : NO GROWTH. Normal [facility] Comment on above: Performed By: #### TAMMIE LOVELL #### [facility] [address] [place] [address] Dr. Stevie Torres ER URINE PROFILEon 2 Bilirubin Ql (U) Negative Normal NEGATIVE [facility] Comment on above: Performed By: #### E WISAMR UMICRO #### [facility] [address] [place] [address] Dr. Stevie Torres Clarity (U) CLEAR Normal CLEAR [facility] Comment on above: Performed By: #### E RUR, UMICRO #### [facility] [address] [place] [address] Dr. Stevie Torres Color (U) DK. ORANGE Abnormal YELLOW [facility] Comment on above: Performed By: #### E ADWOA UMICRO #### [facility] [address] [place] [address] Dr. Stevie DUNN A micrscopic examina tion will be performed if indicated. Normal [facility] Comment on above: Performed By: #### Sarahi ORONA UMICRO #### [facility] [address] [place] [address] Dr. Stevie Torres Glucose Ql (U) 100 mg/dl Abnormal NEGATIVE [facility] Comment on above: Performed By: #### Sarahi ORONA UMICRO #### [facility] [address] [place] [address] Dr. Stevie Torres Hemoglobin Ql (U) SMALL Abnormal NEGATIVE [facility] Comment on above: Performed By: #### Sarahi ORONA UMICRO #### [facility] [address] [place] [address] Dr. Stevie Torres Ketones Ql (U) Negative Normal NEGATIVE [facility] Comment on above: Performed By: #### Sarahi JOELR UMICRO #### [facility] [address] [place] [address] Dr. Stevie Torres LEUKOCYTES Negative Normal NEGATIVE [facility] Comment on above: Performed By: #### E RUR UMICRO #### [facility] [address] [place] [address] Dr. Stevie Torres Nitrite Ql (U) Positive Abnormal NEGATIVE [facility] Comment on above: Performed By: #### Sarahi RUR UMICRO #### [facility] [address] [place] [address] Dr. Stevie Torres pH (U) 7.0 [pH] Normal 5-9 [facility] Comment on above: Performed By: #### FRITZ LOVELLRO #### [facility] [address] [place] [address] Dr. Stevie Torres SPEC GRAVITY <=1.005 Abnormal 1.005-<=1. 025 [facility] Comment on above: Performed By: #### FRITZ LOVELLRO #### [facility] [address] [place] [address] Dr. Stevie Torres UA PROTEIN Negative Normal NEGATIVE/ TRACE [facility] Comment on above: Performed By: #### FRITZ LOVELLRO #### [facility] [address] [place] [address] Dr. Stevie Torres UR MICRO IND INDICATED Normal [facility] Comment on above: Performed By: #### FRITZ LOVELLRO #### [facility] [address] [place] [address] Dr. Stevie Torres Urobilinogen Qn (U) 1.0 {Rolan'U}/dL Normal 0.2 - 1. 0 [facility] Comment on above: Performed By: #### FRITZ LOVELLRO #### [facility] [address] [place] [address] Dr. Stevie Torres URINE MICROSCOPIC ONLYon BACTERIA TRACE Abnormal NONE SEEN [facility] Comment on above: Performed By: #### FRITZ LOVELLRO #### [facility] [address] [place] [address] Dr. Stevie Torres Bacteria identified Cx Nom (U) INDICATED Normal [facility] Comment on above: Performed By: #### FRITZ LOVELLRO #### [facility] [address] [place] [address] Dr. Stevie Torres CAST NONE SEEN Normal NONE SEEN [facility] Comment on above: Performed By: #### FRITZ LOVELLRO #### [facility] [address] [place] [address] Dr. Stevie Torres Crystals LM Nom (Urine sed) NONE SEEN Normal NONE SEEN [facility] Comment on above: Performed By: #### E RUR, UMICRO #### [facility] [address] [address] [address] Stevie Torres Epithelial cells LM Ql (Urine sed) FEW Abnormal NONE SEEN /RARE [facility] Comment on above: Performed By: #### E RUR, UMICRO #### [facility] [address] [address] [address] Stevie Torres MUCOUS NONE SEEN Normal NONE SEEN [facility] Comment on above: Performed By: #### E RUR, UMICRO #### [facility] [address] [place] [address] Dr. Stevie Torres RBC 0-2 Normal 0-2 [facility] Comment on above: Performed By: #### E RUR, UMICRO #### [facility] [address] [place] [address] Dr. Stevie Torres WBC NONE SEEN Normal NONE SEEN [facility] Comment on above: Performed By: #### E RUR, UMICRO #### [facility] [address] [place] [address] Dr. Stevie Torres URINALYSISOrdered By: Kris will on 11-21-2021 Bilirubin Ql (U) Negative (11/21/21 8:15 PM) Normal Negative [facility] UA Auto SS Clarity (U) Clear (11/21/21 8:15 PM) Normal Clear [facility] UA Auto SS Color (U) Vinson *ABN* (11/21/21 8:15 PM) Invalid Interpretation Code [...] PM) Normal Negative [facility] UA Auto SS [place].plasma/[place] .RBC (Bld) [Mass ratio] 0-3 /HPF Normal [...] [facility] UA Auto SS Urobilinogen Qn (U) 4.4091384 {Rolan'U}/dL Inv alid Interpretation Code 0.0 - [...] Clear [facility] UA Auto SS Color (U) Vinson *ABN* (11/16/21 3:42 PM) Invalid Interpretation Code [...] PM) Normal Negative [facility] UA Auto SS [place].plasma/[place] .RBC (Bld) [Mass ratio] 0-3 /HPF Normal 0-3/HPF [facility]A Auto SS Nitrite Ql (U) Positive *ABN* (11/16/21 3:42 PM) Invalid Interpretation Code Negative [facility] UA Auto [...] Desc Clean Catch (11/16/21 3:42 PM) Normal [facility] UA Auto SS Urobilinogen Qn (U) 1.6256313 {Rolan'U}/dL Normal 0.0 - 1.0 EU/dL [facility]A Auto SS WBC Auto Ql (U) 1+ *ABN* (11/16/21 3:42 PM) Invalid Interpretation Code Negative [facility]A Auto SS WBC LM.HPF (Urine sed) [#/Area] 0-5 /HPF Normal 0-5/HPF [facility] Auto SS CHEMISTRYOrdered By: SYSTEM SYSTEM [...] 1.2 mg/dL Normal 0.5 - 1.3 mg/dL [facility] Remisol GFR/1.73 sq M.predicted among blacks MDRD (S/P/Bld) [Vol rate/Area] 53 mL/min/1.73 m2 Low >=59mL/min /1.73 m2 [facility] Chem S GFR/1.73 sq M.predicted among non-blacks MDRD (S/P/Bld) [Vol rate/Area] 44 mL/min/1.73 m2 Low >=59mL/min /1.73 m2 [facility] Chem S Glucose [Mass/Vol] 118 mg/dL Normal 55 - 199 mg/dL [facility] Potassium [Moles/Vol] 4.0 mmol/L Normal 3.5 - 5.3 mmol/L [facility] Sodium [Moles/Vol] 128 mmol/L Low 135 - 145 mmol/L [facility] Remisol Troponin I.cardiac [Mass/Vol] pg/mL Low 10.10 - 27.10 pg/mL [facility] Remisol Urea nitrogen [Mass/Vol] 9 mg/dL Normal 5 - 21 mg/dL [facility] Remisol Urea nitrogen/Creatinine [Mass ratio] 8 mg/mg Low 10 - 20 [facility] Remisol CHEMISTRYOrdered By: Lab ROP User on 11-08-2021 Glucose [Mass/Vol] 106 mg/dL High 55 - 99 mg/dL [facility] POC Subsection Comment on above: Result Comment: Christina perea RN/ POC Device SN [id number] Invalid Interpretation Code [facility] POC Subsection POC User ID [id number] Invalid Interpretation Code [facility] POC Subsection POC Username EMETERIO STOCK Invalid Interpretation Code [facility] POC Subsection HEMATOLOGYOrdered By: SYSTEM SYSTEM on [...] 21.7 % Normal 14.0 - 50.0 % [facility] HemeAutoSS Lymphocytes/Leukocytes Auto (Bld) [Pure # fraction] 1.5 E9/L Normal 1.0 - 4.0 E9/L [facility]eAutoSS Monocytes/100 WBC (Bld) 10.8 % Normal 4.0 - 14.0 % [facility]eAutoSS Monocytes/Leukocytes Auto (Bld) [Pure # fraction] 0.8 E9/L Normal 0.2 - 1.0 E9/L [facility] Neutrophils/100 WBC (Bld) 63.8 % Normal 36.0 - 75.0 % [facility] HemeAutoSS Neutrophils/Leukocytes Auto (Bld) [Pure # fraction] 4.5 E9/L Normal 2.0 - 7.5 E9/L [facility] HEMATOLOGYOrdered By: Maggie Matthews on 11-08-2021 Erythrocyte distribution width (RBC) [Ratio] 12.9 % Normal 10.9 - 14.2 % [facility]eAuto[facility] Hematocrit (Bld) [Volume fraction] 40.4 % Normal 34.0 - 46.0 % [facility] Hemoglobin (Bld) [Mass/Vol] 13.0 g/dL Normal 12.0 - 16.0 gm/dL [facility] MCH (RBC) [Entitic mass] 28.0 pg Normal 27.0 - 34.0 pg [facility] MCHC (RBC) [Mass/Vol] 32.1 g/dL Normal 31.4 - 36.0 gm/dL [facility] MCV (RBC) [Entitic vol] 87.1 fL Normal 80.0 - 100.0 fL [facility] Platelet mean volume (Bld) [Entitic vol] 8.3 fL Normal 6.4 - 10.8 fL [facility] Platelets (Bld) [#/Vol] 257.0 E9/L Normal 150.0 - 500.0 E9/L [facility] RBC (Bld) [#/Vol] 4.6 E12/L Normal 4.3 - 5.9 E12/L [facility] WBC corrected for nucl RBC Auto (Bld) [#/Vol] 7.1 E9/L Normal 4.0 - 11.0 E9/L [facility] URINALYSISOrdered By: Kris will on 11-08-2021 Bacteria LM Ql (Urine sed) 2+ /HPF Invalid Interpretation Code Trace/HPF [facility] UA Auto SS Bilirubin Ql (U) Negative (11/08/21 5:33 PM) Normal Negative [facility] UA Auto SS Clarity (U) Clear (11/08/21 5:33 PM) Normal Clear [facility] UA Auto SS Color (U) Vinson *ABN* (11/08/21 5:33 PM) Invalid Interpretation Code [...] PM) Normal Negative [facility] UA Auto SS [place].plasma/[place] .RBC (Bld) [Mass ratio] 0-3 /HPF Normal [...] [facility] UA Auto SS Urobilinogen Qn (U) 2.4659160 {Rolan'U}/dL Inv alid Interpretation Code 0.0 - [...] PM) Normal Negative [facility] UA Auto SS [place].plasma/[place] .RBC (Bld) [Mass ratio] 4-20 /HPF Normal [...] Desc Clean Catch (11/06/21 6:27 PM) Normal [facility] UA Auto SS Urobilinogen Qn (U) 0.1660280 {Rolan'U}/dL Normal 0.0 - 1.0 EU/dL [facility] UA Auto SS WBC Auto Ql (U) 2+ *ABN* (11/06/21 6:27 PM) Invalid Interpretation Code Negative [facility] UA Auto SS WBC LM.HPF (Urine sed) [#/Area] 0-5 /HPF Normal 0-5/HPF [facility]A Auto SS CHEMISTRYOrdered By: SYSTEM SYSTEM [...] 3.1 g/dL Normal 1.4 - 4.0 gm/dL [facility] Glucose [Mass/Vol] 132 mg/dL Normal 55 - 199 mg/dL [facility] Lipase [Catalytic activity/Vol] 32 U/L Normal [...] 6.7 E9/L Normal 2.0 - 7.5 E9/L [facility] HEMATOLOGYOrdered By: Jovanna Harding on 10-27-2021 Erythrocyte distribution width (RBC) [Ratio] 12.8 % Normal 10.9 - 14.2 % [facility] Hematocrit (Bld) [Volume fraction] 40.7 % Normal 34.0 - 46.0 % [facility] Hemoglobin (Bld) [Mass/Vol] 13.0 g/dL Normal 12.0 - 16.0 gm/dL [facility] MCH (RBC) [Entitic mass] 28.0 pg Normal 27.0 - 34.0 pg [facility]Auto[facility] MCHC (RBC) [Mass/Vol] 32.0 g/dL Normal 31.4 - 36.0 gm/dL [facility] MCV (RBC) [Entitic vol] 87.3 fL Normal 80.0 - 100.0 fL [facility]eAutoSS Platelet mean volume (Bld) [Entitic vol] 6.9 fL Normal 6.4 - 10.8 fL [facility]eAutoSS Platelets (Bld) [#/Vol] 291.0 E9/L Normal 150.0 - 500.0 E9/L [facility]Auto[facility] RBC (Bld) [#/Vol] 4.7 E12/L Normal 4.3 - 5.9 E12/L [facility] WBC corrected for nucl RBC Auto (Bld) [#/Vol] 8.7 E9/L Normal 4.0 - 11.0 E9/L [facility] URINALYSISOrdered By: Christelle taylor on 10-27-2021 [...] AM) Normal Negative [facility] UA Auto SS [place].plasma/[place] .RBC (Bld) [Mass ratio] 0-3 /HPF Normal [...] [facility] UA Auto SS Urobilinogen Qn (U) 0.0417926 {Rolan'U}/dL Normal 0.0 - 1.0 EU/dL [facility] [...] 53 mL/min/1.73 m2 Low >=59mL/min /1.73 m2 [facility] Chem S GFR/1.73 sq M.predicted among non-blacks MDRD (S/P/Bld) [Vol rate/Area] 44 mL/min/1.73 m2 Low >=59mL/min /1.73 m2 [facility] Chem S Glucose [Mass/Vol] 98 mg/dL Normal 55 - 199 mg/dL [facility] Potassium [Moles/Vol] 4.1 mmol/L Normal 3.5 - 5.3 mmol/L [facility] Sodium [Moles/Vol] 136 mmol/L Normal 135 - 145 mmol/L [facility] Troponin I.cardiac [Mass/Vol] 3.10 pg/mL Low 10.10 - 27.10 pg/mL [facility] Urea nitrogen [Mass/Vol] 9 mg/dL Normal [...] 1.2 mg/dL Normal 0.5 - 1.3 mg/dL [facility] Remisol GFR/1.73 sq M.predicted among blacks MDRD (S/P/Bld) [Vol rate/Area] 53 mL/min/1.73 m2 Low >=59mL/min /1.73 m2 [facility] Chem S GFR/1.73 sq M.predicted among non-blacks MDRD (S/P/Bld) [Vol rate/Area] 44 mL/min/1.73 m2 Low >=59mL/min /1.73 m2 [facility] Chem S Glucose [Mass/Vol] 123 mg/dL Normal 55 - 199 mg/dL [facility] Remisol Magnesium [Mass/Vol] 2.2 mg/dL Normal 1.3 - 2 .4 mg/dL [facility] Remisol Potassium [Moles/Vol] 3.6 mmol/L Normal 3.5 - 5.3 mmol/L [facility] Remisol Sodium [Moles/Vol] 130 mmol/L Low 135 - 145 mmol/L [facility] Remisol Troponin I.cardiac [Mass/Vol] 2.90 pg/mL Low 10.10 - 27.10 pg/mL [facility] Remisol Urea nitrogen [Mass/Vol] 9 mg/dL Normal 5 - 21 mg/dL [facility] Remisol Urea nitrogen/Creatinine [Mass ratio] 8 mg/mg Low 10 - 20 [facility] Remisol CHEMISTRYOrdered By: Lab ROP User on 10-23-2021 Glucose [Mass/Vol] 111 mg/dL High 55 - 99 mg/dL [facility] POC Subsection Comment on above: Result Comment: Aleida steven Meter POC Device SN [id number] Invalid Interpretation Code [facility] POC Subsection POC User ID [id number] Invalid Interpretation Code [facility] POC Subsection POC Username VALENTINO GREGORIO Invalid Interpretation Code [facility] POC Subsection COAGULATIONOrdered By: Luis Trotter on 10-23-2021 aPTT Coag (PPP) [Time] 31.4 s Normal 25.1 - 36.5 second(s) [facility] Auto Coag INR Coag (PPP) [Relative time] [...] Code [facility] UA Auto SS Color (U) Vinson *ABN* (10/23/21 7:35 PM) Invalid Interpretation Code [...] PM) Normal Negative [facility] UA Auto SS [place].plasma/[place] .RBC (Bld) [Mass ratio] 0-3 /HPF Normal [...] Desc Clean Catch (10/23/21 7:35 PM) Normal [facility] UA Auto SS Urobilinogen Qn (U) 4.0270869 {Rolan'U}/dL Inv alid Interpretation Code 0.0 - 1.0 EU/dL [facility] UA Auto SS WBC Auto Ql (U) 2+ *ABN* (10/23/21 7:35 PM) Invalid Interpretation Code Negative [facility] UA Auto SS WBC LM.HPF (Urine sed) [#/Area] 6-15 /HPF Invalid Interpretation Code 0-5/HPF [facility] UA Auto SS URINALYSISOrdered By: Klaudia Holland on 10-20-2021 Bacteria LM Ql (Urine sed) [...] AM) Normal Negative [facility] UA Auto SS [place].plasma/[place] .RBC (Bld) [Mass ratio] 0-3 /HPF Normal [...] [facility] UA Auto SS Urobilinogen Qn (U) [id number] {Rolan'U}/dL Normal 0.0 - 1.0 EU/dL [facility] [...] PM) Normal Negative [facility] UA Auto SS [place].plasma/[place] .RBC (Bld) [Mass ratio] 0-3 /HPF Normal [...] Spec Desc Catheter (10/03/21 10:33 PM) Normal [facility] [place] UA Auto SS Urobilinogen Qn (U) [id number] {Rolan'U}/dL Normal 0.0 - 1.0 EU/dL [facility] UA Auto SS WBC Auto Ql (U) Trace *ABN* (10/03/21 10:33 PM) Invalid Interpretation Code Negative [facility] UA Auto SS WBC LM.HPF (Urine sed) [#/Area] 0-5 /HPF Normal 0-5/HPF [facility] UA Auto SS URINALYSIS, REFLEX MICROSCOP ICon 10-02-2021 Bilirubin Ql (U) Negative Negative [facility] Clarity (Unsp spec) Clear Clear [facility] Color (U) Colorless Yellow [facility] Glucose Test strip (U) [Mass/Vol] Negative Negative [facility] Hemoglobin Ql (U) Negative Negative [facility] Ketones Ql (U) Negative Negative [facility] Leukocyte esterase Test strip Ql (U) Negative Negative [facility] Nitrite Ql (U) Negative Negative [facility] pH (U) 7.0 [pH] 5.0 - 8.0 [facility] Protein (U) [Mass/Vol] Negative Negative [facility] Specific gravity (U) [Rel density] 1.005 1.005 - 1.030 [facility] Urobilinogen Ql (U) Negative Negative [facility] URINALYSISOrdered By: Nicolasa fletcher on 09-30-2021 Bilirubin [...] PM) Normal Negative [facility] UA Auto SS [place].plasma/[place] .RBC (Bld) [Mass ratio] 0-3 /HPF Normal [...] [facility] UA Auto SS Urobilinogen Qn (U) 0.6168548 {Rolan'U}/dL Normal 0.0 - 1.0 EU/dL [facility] [...] AM) Normal Negative [facility] UA Auto SS [place].plasma/[place] .RBC (Bld) [Mass ratio] 0-3 /HPF Normal [...] Spec Desc Catheter (09/17/21 9:50 AM) Normal [facility] UA Auto SS Urobilinogen Qn (U) 0.7880946 {Rolan'U}/dL Normal 0.0 - 1.0 EU/dL [facility] UA Auto SS WBC Auto Ql (U) Trace *ABN* (09/17/21 9:50 AM) Invalid Interpretation Code Negative [facility] UA Auto SS WBC LM.HPF (Urine sed) [#/Area] 0-5 /HPF Normal 0-5/HPF [facility] UA Auto SS Automated erythrocytes count in urine sediment (number/area)Ordered By: King Carvajal on 09-08-2021 RBC Auto (Urine sed) [#/Area] 10-19 [HPF] [facility] Automated leukocytes count i n urine sediment (number/area)Ordered By: King Carvajal on 09-08-2021 WBC Auto (Urine sed) [#/Area] 0-1 [HPF] [facility] Basophils Auto (Bld) [#/Vol] Ordered By: King Carvajal on 09-08-2021 Basophils (Bld) [#/Vol] 0.1 10*3/uL 0.0-0.[address] [facility] Basophils/100 WBC Auto (Bld) Ordered By: King Carvajal on 09-08-2021 Basophils/100 WBC (Bld) 1.1 % [facility] Bilirubin Test strip Ql (U)O rdered By: King Carvajal on 09-08-2021 Bilirubin Ql (U) Negative Negative [facility] Blood hemoglobin measurement (mass/volume)Ordered By: King Carvajal on 09-08-2021 Hemoglobin (Bld) [Mass/Vol] 12.0 g/dL 11.8-15.[address] [facility] Blood leukocytes automated c ount (number/volume)Ordered By: King Carvajal on 09-08-2021 WBC (Bld) [#/Vol] 9.3 10*3/uL 4.5-11.0 [facility] Color Auto (U)Ordered By: Denton Carvajal on 09-08-2021 Color (U) Dark yellow Yellow [facility] Creatinine and Glomerular fi ltration rate.predicted panel (S/P/Bld)Ordered By: King Carvajal on 09-08-2021 Creatinine [Mass/Vol] 1.20 mg/dL 0.44-1.03 [facility] Eosinophils Auto (Bld) [#/Vo l]Ordered By: King Carvajal on 09-08-2021 Eosinophils (Bld) [#/Vol] 0.1 10*3/uL 0.0-0.[address] [facility] Eosinophils/100 WBC Auto (Bl d)Ordered By: King Carvajal on 09-08-2021 Eosinophils/100 WBC (Bld) 0.9 % [facility] Erythrocyte distribution wid th Auto (RBC) [Ratio]Ordered By: King Carvajal on 09-08-2021 Erythrocyte distribution width (RBC) [Ratio] 13.1 % 11.9-15.[address] [facility] Estimated glomerular filtrat ion rate (GFR) non- AmericanOrdered By: King Carvajal on 09-08-2021 GFR/1.73 sq M.predicted among non-blacks MDRD (S/P/Bld) [Vol rate/Area] 44 mL/Min [facility] Hematocrit Auto (Bld) [Volum e fraction]Ordered By: King Carvajal on 09-08-2021 Hematocrit (Bld) [Volume fraction] 36.7 % 34.0-46.[address] [facility] Ketones Auto test strip (U) [Mass/Vol]Ordered By: King Carvajal on 09-08-2021 Ketones (U) [Mass/Vol] Negative Negative [facility] Laboratory - Hematology and Cell countsOrdered By: King Carvajal on 09-08-2021 Nucleated RBC/100 WBC (Bld) [Ratio] 0.1 % 0-0.[address] [facility] Laboratory - UrinalysisOrder ed By: King Carvajal on 09-08-2021 Hyaline casts LM Ql (Urine sed) 0-8 [LPF] [facility] Lymphocytes Auto (Bld) [#/Vo l]Ordered By: King Carvajal on 09-08-2021 Lymphocytes (Bld) [#/Vol] 1.4 10*3/uL 1.00-4.[address] [facility] Lymphocytes/100 WBC Auto (Bl d)Ordered By: King Carvajal on 09-08-2021 Lymphocytes/100 WBC (Bld) 14.7 % [facility] MCH Auto (RBC) [Entitic mass ]Ordered By: King Carvajal on 09-08-2021 MCH (RBC) [Entitic mass] 30.3 pg 24.7-34.[address] [facility] MCHC Auto (RBC) [Mass/Vol]Or dered By: King Carvajal on 09-08-2021 MCHC (RBC) [Mass/Vol] 32.6 g/dL 32.0-35.0 [facility] MCV Auto (RBC) [Entitic vol] Ordered By: King Carvajal on 09-08-2021 MCV (RBC) [Entitic vol] 93.0 fL 80-[address] [facility] Monocytes Auto (Bld) [#/Vol] Ordered By: King Carvajal on 09-08-2021 Monocytes (Bld) [#/Vol] 0.9 10*3/uL 0.0-0.[address] [facility] Monocytes/100 WBC Auto (Bld) Ordered By: King Carvajal on 09-08-2021 Monocytes/100 WBC (Bld) 9.5 % [facility] Neutrophils Auto (Bld) [#/Vo l]Ordered By: King Carvajal on 09-08-2021 Neutrophils (Bld) [#/Vol] 6.8 10*3/uL 1.8-7.[address] [facility] Neutrophils/100 WBC Auto (Bl d)Ordered By: King Carvajal on 09-08-2021 Neutrophils/100 WBC (Bld) 73.8 % [facility] Nitrite Test strip Ql (U)Ord ered By: King Carvajal on 09-08-2021 Nitrite Ql (U) Positive Negative [facility] No Panel InformationOrdered By: King Carvajal on 09-08-2021 Estimated GFR () 53 mL/Min [facility] Comment on above: GFR estimated refere nce range: According to KDOQI guidelines, <60 ml/min/1.73m2 is sufficient to diagnose a patient with chronic kidney disease. Pharmacy Creatinine Clearance (Chem 36.[address] [facility] Platelet mean volume Auto (B ld) [Entitic vol]Ordered By: King Carvajal on 09-08-2021 Platelet mean volume (Bld) [Entitic vol] 7.0 fL 6.3-10.[address] [facility] Platelets Auto (Bld) [#/Vol] Ordered By: King Carvajal on 09-08-2021 Platelets (Bld) [#/Vol] 280 10*3/uL 150-[address] [facility] Protein Auto test strip (U) [Mass/Vol]Ordered By: King Carvajal on 09-08-2021 Protein (U) [Mass/Vol] Negative Negative [facility] RBC Auto (Bld) [#/Vol]Ordere d By: King Carvajal on 09-08-2021 RBC (Bld) [#/Vol] 3.95 10*6/uL 3.60-5.00 [facility] Serum or plasma calcium dimitris urement (mass/volume)Ordered By: King Carvajal on 09-08-2021 Calcium [Mass/Vol] 9.2 mg/dL 8.2-10.2 [facility] Serum or plasma chloride jeison surement (moles/volume)Ordered By: King Carvajal on 09-08-2021 Chloride [Moles/Vol] 91 mmol/L 95-114 [facility] Serum or plasma glucose dimitris urement (mass/volume)Ordered By: King Carvajal on 09-08-2021 Glucose [Mass/Vol] 194 mg/dL 70-100 [facility] Comment on above: ADA recommended refe rence range Random Glucose Reference Range is dependent on time and content of last meal. Glucose of more than 200 mg/dL in a nonstressed, ambulatory subject supports the diagnosis of Diabetes Mellitus. Serum or plasma potassium me asurement (moles/volume)Ordered By: King Carvajal on 09-08-2021 Potassium [Moles/Vol] 3.6 mmol/L 3.5-5.1 [facility] Serum or plasma sodium measu rement (moles/volume)Ordered By: King Carvajal on 09-08-2021 Sodium [Moles/Vol] 126 mmol/L 136-146 [facility] Serum or plasma total carbon dioxide measurement (moles/volume)Ordered By: King Carvajal on 09-08-2021 CO2 [Moles/Vol] 24.2 mmol/L 22.0-30.0 [facility] Serum or plasma urea nitroge n measurement (mass/volume)Ordered By: King Carvajal on 09-08-2021 Urea nitrogen [Mass/Vol] 5 mg/dL 9-[address] [facility] Specific gravity Auto test s trip (U) [Rel density]Ordered By: King Carvajal on 09-08-2021 Specific gravity (U) [Rel density] 1.010 1.001-1.[address] [facility] Squamous epithelial cells de tection in urine sediment by light microscopyOrdered By: King Carvajal on 09-08-2021 Epithelial cells.squamous LM Ql (Urine sed) 0-1 [HPF] [facility] URINALYSISOrdered By: Alliso n Nilesh on [...] AM) Normal Negative [facility] UA Auto SS [place].plasma/[place] .RBC (Bld) [Mass ratio] 0-3 /HPF Normal 0-3/HPF [facility] UA Auto SS Nitrite Ql (U) Negative (09/08/21 5:21 AM) Normal Negative [facility] UA Auto SS pH (U) 7.0 *NA* (09/08/21 5:21 AM) Invalid Interpretation Code 5.0 - 9.0 [facility] UA Auto SS Protein (U) [Mass/Vol] Negative (09/08/21 5:21 AM) Normal Negative [facility] UA Auto SS Specific gravity (U) [Rel density] 1.010 *NA* (09/08/21 5:21 AM) Invalid Interpretation Code 1.005 - 1.030 [facility] UA Auto SS UA Spec Desc Catheter (09/08/21 5:21 AM) Normal [facility] UA Auto SS Urobilinogen Qn (U) 0.2825230 {Rolan'U}/dL Normal 0.0 - 1.0 EU/dL [facility] UA Auto SS WBC Auto Ql (U) Negative (09/08/21 5:21 AM) Normal Negative [facility] UA Auto SS WBC LM.HPF (Urine sed) [#/Area] 0-5 /HPF Normal 0-5/HPF [facility] UA Auto SS Urine bacteria detection by automated methodOrdered By: King Carvajal on 09-08-2021 Bacteria Auto Ql (U) None seen None Seen [facility] Urine clarity by refractomet ry automatedOrdered By: King Carvajal on 09-08-2021 Clarity Refractometry automated (U) Clear Clear [facility] Urine culture routineOrdered By: King Carvajal on 09-08-2021 Bacteria identified Cx Nom (U) No Growth [address] [facility] Urine glucose measurement by automated test strip (mass/volume)Ordered By: King Carvajal on 09-08-2021 Glucose Auto test strip (U) [Mass/Vol] Normal mg/dL Normal [facility] Urine hemoglobin detection b y automated test stripOrdered By: King Carvajal on 09-08-2021 Hemoglobin Auto test strip Ql (U) 1+ Negative [facility] Urine leukocyte esterase det ection by automated test stripOrdered By: King Carvajal on 09-08-2021 Leukocyte esterase Auto test strip Ql (U) 1+ Negative [facility] Urobilinogen Auto test strip (U) [Mass/Vol]Ordered By: King Carvajal on 09-08-2021 Urobilinogen (U) [Mass/Vol] Normal mg/dL Normal [facility] pH Auto test strip (U)Ordere d By: King Carvajal on 09-08-2021 pH (U) 6.0 [pH] 5.0-9.[address] [facility] CHEMISTRYOrdered By: SYSTEM SYSTEM on 09-07-2021 [...] 59 mL/min/1.73 m2 Normal >=59mL/min /1.73 m2 [facility] Chem S GFR/1.73 sq M.predicted among non-blacks MDRD (S/P/Bld) [Vol rate/Area] 49 mL/min/1.73 m2 Low >=59mL/min /1.73 m2 [facility] Chem S Glucose [Mass/Vol] 114 mg/dL Normal 55 - 199 mg/dL [facility] Potassium [Moles/Vol] 3.9 mmol/L Normal 3.5 - 5.3 mmol/L [facility] Sodium [Moles/Vol] 132 mmol/L [...] 59 mL/min/1.73 m2 Normal >=59mL/min /1.73 m2 [facility] Chem S GFR/1.73 sq M.predicted among non-blacks MDRD (S/P/Bld) [Vol rate/Area] 49 mL/min/1.73 m2 Low >=59mL/min /1.73 m2 [facility] Chem S Globulin (S) [Mass/Vol] 2.3 g/dL [...] - 20 [facility] Remisol CHEMISTRYOrdered By: Radha Nilesh on 09-07-2021 Troponin I.cardiac [Mass/Vol] 2.90 pg/mL [...] 11.0 E9/L [facility] HemeAutoSS HEMATOLOGYOrdered By: Lilibeth Garcia on 09-07-2021 Erythrocyte distribution width (RBC) [Ratio] [...] 91.4 fL Normal 80.0 - 100.0 fL [facility] HemeAutoSS Platelet mean volume (Bld) [Entitic vol] 6.6 fL Normal 6.4 - 10.8 fL [facility] HemeAutoSS Platelets (Bld) [#/Vol] 262.0 E9/L Normal 150.0 - 500.0 E9/L [facility] HemeAutoSS RBC (Bld) [#/Vol] 3.6 E12/L Low 4.3 - 5.9 E12/L [facility] HemeAutoSS WBC corrected for nucl RBC Auto (Bld) [#/Vol] 8.2 E9/L Normal 4.0 - 11.0 E9/L [facility] HemeAutoSS LaboratoryOrdered By: Jose Smith on 09-07-2021 [place].plasma/[place] .RBC (Bld) [Mass ratio] 0-3 /HPF Normal 0-3/HPF [facility] UA Auto SS Laboratory - Chemistry and C hemistry - challengeOrdered By: Jose Smith on 09-07-2021 Urobilinogen Qn (U) 1.1591205 {Rolan'U}/dL Normal 0.0 - 1.0 EU/dL [facility] UA Auto SS Laboratory - UrinalysisOrder ed By: Jose Smith on 09-07-2021 WBC LM.HPF (Urine sed) [#/Area] 0-5 /HPF Normal 0-5/HPF [facility] UA Auto SS MICRO OTHER TESTSOrdered By: Klaudia Holland on 09-07-2021 Fecal WBC Lactoferrin Negative (09/07/21 [...] aPTT Coag (PPP) [Time] 28.9 s 25.1-36.5 [facility] Automated epithelial cells c ount in urine sediment (number/area)Ordered By: Jaxon Buchanan on 08-07-2021 Epithelial cells Auto (Urine sed) [#/Area] 0-1 [HPF] [facility] Automated erythrocytes count in urine sediment (number/area)Ordered By: Jaxon Buchanan on 08-07-2021 RBC Auto (Urine sed) [#/Area] 0-1 [HPF] [facility] Automated leukocytes count i n urine sediment (number/area)Ordered By: Jaxon Buchanan on 08-07-2021 WBC Auto (Urine sed) [#/Area] 0-1 [HPF] [facility] Basophils Auto (Bld) [#/Vol] Ordered By: Jaxon Buchanan on 08-07-2021 Basophils (Bld) [#/Vol] 0.2 10*3/uL 0.0-0.[address] [facility] Basophils/100 WBC Auto (Bld) Ordered By: Jaxon Buchanan on 08-07-2021 Basophils/100 WBC (Bld) 2.7 % [facility] Bilirubin Test strip Ql (U)O rdered By: Jaxon Buchanan on 08-07-2021 Bilirubin Ql (U) See comment Negative [facility] Comment on above: Unable to obtain acc urate result due to color interference. Blood hemoglobin measurement (mass/volume)Ordered By: Jaxon Buchanan on 08-07-2021 Hemoglobin (Bld) [Mass/Vol] 10.3 g/dL 11.8-15.[address] [facility] Blood leukocytes automated c ount (number/volume)Ordered By: Jaxon Buchanan on 08-07-2021 WBC (Bld) [#/Vol] 7.4 10*3/uL 4.5-11.0 [facility] Body fluid albumin measureme nt (mass/volume)Ordered By: Jaxon Buchanan on 08-07-2021 Albumin (Body fld) [Mass/Vol] 3.7 g/dL 3.2-5.[address] [facility] Color Auto (U)Ordered By: Rolando Buchanan on 08-07-2021 Color (U) [place] Yellow [facility] Creatinine and Glomerular fi ltration rate.predicted panel (S/P/Bld)Ordered By: Jaxon Buchanan on 08-07-2021 Creatinine [Mass/Vol] 1.46 mg/dL 0.44-1.03 [facility] Eosinophils Auto (Bld) [#/Vo l]Ordered By: Jaxon Buchanan on 08-07-2021 Eosinophils (Bld) [#/Vol] 0.3 10*3/uL 0.0-0.[address] [facility] Eosinophils/100 WBC Auto (Bl d)Ordered By: Jaxon Buchanan on 08-07-2021 Eosinophils/100 WBC (Bld) 3.4 % [facility] Erythrocyte distribution wid th Auto (RBC) [Ratio]Ordered By: Jaxon Buchanan on 08-07-2021 Erythrocyte distribution width (RBC) [Ratio] 13.8 % 11.9-15.[address] [facility] Estimated glomerular filtrat ion rate (GFR) non- AmericanOrdered By: Jaxon Buchanan on 08-07-2021 GFR/1.73 sq M.predicted among non-blacks MDRD (S/P/Bld) [Vol rate/Area] 35 mL/Min [facility] Globulin Calc (S) [Mass/Vol] Ordered By: Jaxon Buchanan on 08-07-2021 Globulin (S) [Mass/Vol] 2.4 g/dL [facility] Hematocrit Auto (Bld) [Volum e fraction]Ordered By: Jaxon Buchanan on 08-07-2021 Hematocrit (Bld) [Volume fraction] 31.9 % 34.0-46.[address] [facility] Ketones Auto test strip (U) [Mass/Vol]Ordered By: Jaxon Buchanan on 08-07-2021 Ketones (U) [Mass/Vol] See comment Negative [facility] Comment on above: Unable to obtain acc urate result due to color interference. Laboratory - Chemistry and C hemistry - challengeOrdered By: Jaxon Buchanan on 08-07-2021 Lipase [Catalytic activity/Vol] 49.0 U/L 22-[address] [facility] Laboratory - CoagulationOrde red By: Jaxon Buchanan on 08-07-2021 PT Coag (PPP) [Time] 10.9 s 9.0-12.9 [facility] Laboratory - Hematology and Cell countsOrdered By: Jaxon Buchanan on 08-07-2021 Nucleated RBC/100 WBC (Bld) [Ratio] 0.1 % 0-0.[address] [facility] Lymphocytes Auto (Bld) [#/Vo l]Ordered By: Jaxon Buchanan on 08-07-2021 Lymphocytes (Bld) [#/Vol] 1.9 10*3/uL 1.00-4.[address] [facility] Lymphocytes/100 WBC Auto (Bl d)Ordered By: Jaxon Buchanan on 08-07-2021 Lymphocytes/100 WBC (Bld) 26.0 % [facility] MCH Auto (RBC) [Entitic mass ]Ordered By: Jaxon Buchanan on 08-07-2021 MCH (RBC) [Entitic mass] 29.6 pg 24.7-34.[address] [facility] MCHC Auto (RBC) [Mass/Vol]Or dered By: Jaxon Buchanan on 08-07-2021 MCHC (RBC) [Mass/Vol] 32.2 g/dL 32.0-35.0 [facility] MCV Auto (RBC) [Entitic vol] Ordered By: Jaxon Buchanan on 08-07-2021 MCV (RBC) [Entitic vol] 91.9 fL 80-[address] [facility] Monocytes Auto (Bld) [#/Vol] Ordered By: Jaxon Buchanan on 08-07-2021 Monocytes (Bld) [#/Vol] 0.8 10*3/uL 0.0-0.[address] [facility] Monocytes/100 WBC Auto (Bld) Ordered By: Jaxon Buchanan on 08-07-2021 Monocytes/100 WBC (Bld) 10.8 % [facility] Neutrophils Auto (Bld) [#/Vo l]Ordered By: Jaxon Buchanan on 08-07-2021 Neutrophils (Bld) [#/Vol] 4.2 10*3/uL 1.8-7.[address] [facility] Neutrophils/100 WBC Auto (Bl d)Ordered By: Jaxon Buchanan on 08-07-2021 Neutrophils/100 WBC (Bld) 57.1 % [facility] Nitrite Test strip Ql (U)Ord ered By: Jaxon Buchanan on 08-07-2021 Nitrite Ql (U) See comment Negative [facility] Comment on above: Unable to obtain acc urate result due to color interference. No Panel InformationOrdered By: Jaxon Buchanan on 08-07-2021 Estimated GFR () 42 mL/Min [facility] Comment on above: GFR estimated refere nce range: According to KDOQI guidelines, <60 ml/min/1.73m2 is sufficient to diagnose a patient with chronic kidney disease. Pharmacy Creatinine Clearance (Chem 27.[address] [facility] Platelet mean volume Auto (B ld) [Entitic vol]Ordered By: Jaxon Buchanan on 08-07-2021 Platelet mean volume (Bld) [Entitic vol] 7.1 fL 6.3-10.[address] [facility] Platelet poor plasma interna tional normalized ratio (INR) by coagulation assay (relatOrdered By: Jaxon Buchanan on 08-07-2021 INR Coag (PPP) [Relative time] 1.0 {INR} [facility] Comment on above: INR Therapeutic Rang [...] 08-07-2021 Platelets (Bld) [#/Vol] 297 10*3/uL 150-[address] [facility] Protein Auto test strip (U) [Mass/Vol]Ordered By: Jaxon Buchanan on 08-07-2021 Protein (U) [Mass/Vol] See comment Negative F [facility] Comment on above: Unable to obtain acc urate result due to color interference. Protein [Mass/volume] in Ser um or PlasmaOrdered By: Jaxon Buchanan on 08-07-2021 Protein [Mass/Vol] 6.1 g/dL 6.1-7.9 [facility] RBC Auto (Bld) [#/Vol]Ordere d By: Jaxon Buchanan on 08-07-2021 RBC (Bld) [#/Vol] 3.47 10*6/uL 3.60-5.00 [facility] Serum or plasma alanine hancock otransferase measurement without P-5'-P (enzymatic activiOrdered By: Jaxon Buchanan on 08-07-2021 ALT No additional P-5'-P [Catalytic activity/Vol] 14 U/L 10-[address] [facility] Serum or plasma albumin/glob ulin mass ratioOrdered By: Jaxon Buchanan on 08-07-2021 Albumin/Globulin [Mass ratio] 1.5 {ratio} [facility] Serum or plasma alkaline miguel ángel sphatase measurement (enzymatic activity/volume)Ordered By: Jaxon Buchanan on 08-07-2021 ALP [Catalytic activity/Vol] 57 U/L 32-[address] [facility] Serum or plasma amylase dimitris urement (enzymatic activity/volume)Ordered By: Jaxon Buchanan on 08-07-2021 Amylase [Catalytic activity/Vol] 53 U/L 28-[address] [facility] Serum or plasma aspartate am inotransferase measurement (enzymatic activity/volume)Ordered By: Jaxon Buchanan on 08-07-2021 AST [Catalytic activity/Vol] 22 U/L 10-[address] [facility] Serum or plasma calcium dimitris urement (mass/volume)Ordered By: Jaxon Buchanan on 08-07-2021 Calcium [Mass/Vol] 9.2 mg/dL 8.2-10.2 [facility] Serum or plasma chloride jeison surement (moles/volume)Ordered By: Jaxon Buchanan on 08-07-2021 Chloride [Moles/Vol] 93 mmol/L 95-114 [facility] Serum or plasma glucose dimitris urement (mass/volume)Ordered By: Jaxon Buchanan on 08-07-2021 Glucose [Mass/Vol] 114 mg/dL 70-100 [facility] Comment on above: ADA recommended refe rence range Random Glucose Reference Range is dependent on time and content of last meal. Glucose of more than 200 mg/dL in a nonstressed, ambulatory subject supports the diagnosis of Diabetes Mellitus. Serum or plasma potassium me asurement (moles/volume)Ordered By: Jaxon Buchanan on 08-07-2021 Potassium [Moles/Vol] 4.3 mmol/L 3.5-5.1 [facility] Serum or plasma sodium measu rement (moles/volume)Ordered By: Jaxon Buchanan on 08-07-2021 Sodium [Moles/Vol] 130 mmol/L 136-146 [facility] Serum or plasma total biliru bin measurement (mass/volume)Ordered By: Jaxon Buchanan on 08-07-2021 Bilirubin [Mass/Vol] 1.1 mg/dL 0.3-1.2 [facility] Serum or plasma total carbon dioxide measurement (moles/volume)Ordered By: Jaxon Buchanan on 08-07-2021 CO2 [Moles/Vol] 29.1 mmol/L 22.0-30.0 [facility] Serum or plasma urea nitroge n measurement (mass/volume)Ordered By: Jaxon Buchanan on 08-07-2021 Urea nitrogen [Mass/Vol] 7 mg/dL 9- [facility] Specific gravity Auto test s trip (U) [Rel density]Ordered By: Jaxon Buchanan on 08-07-2021 Specific gravity (U) [Rel density] 1.005 1.001-1.[address] [facility] Troponin I.cardiac [Mass/vol ume] in Serum or Plasma by High sensitivity methodOrdered By: Jaxon Buchanan on 08-07-2021 Troponin I.cardiac High sensitivity method [Mass/Vol] 3 pg/mL 0-[address] [facility] Urine bacteria detection by automated methodOrdered By: Jaxon Buchanan on 08-07-2021 Bacteria Auto Ql (U) None seen None Seen [facility] Urine clarity by refractomet ry automatedOrdered By: Jaxon Buchanan on 08-07-2021 Clarity Refractometry automated (U) Clear Clear [facility] Urine culture routineOrdered By: Jaxon Buchanan on 08-07-2021 Bacteria identified Cx Nom (U) [address] [facility] Urine glucose measurement by automated test strip (mass/volume)Ordered By: Jaxon Buchanan on 08-07-2021 Glucose Auto test strip (U) [Mass/Vol] See comment Normal [facility] Comment on above: Unable to obtain acc urate result due to color interference. Urine hemoglobin detection b y automated test stripOrdered By: Jaxon Buchanan on 08-07-2021 Hemoglobin Auto test strip Ql (U) See comment Negative [facility] Comment on above: Unable to obtain acc urate result due to color interference. Urine lactic acid measuremen tOrdered By: Jaxon Buchanan on 08-07-2021 Lactate (U) [Moles/Vol] 1.1 mmol/L [facility] Urine leukocyte esterase det ection by automated test stripOrdered By: Jaxon Buchanan on 08-07-2021 Leukocyte esterase Auto test strip Ql (U) See comment Negative [facility] Comment on above: Unable to obtain acc urate result due to color interference. Urobilinogen Auto test strip (U) [Mass/Vol]Ordered By: Jaxon Buchanan on 08-07-2021 Urobilinogen (U) [Mass/Vol] See comment Normal [facility] Comment on above: Unable to obtain acc urate result due to color interference. pH Auto test strip (U)Ordere d By: Jaxon Buchanan on 08-07-2021 pH (U) See comment 5.0-9.[address] [facility] Comment on above: Unable to obtain acc urate result due to color interference. Automated erythrocytes count in urine sediment (number/area)Ordered By: Gloria Moss on 07-27-2021 RBC Auto (Urine sed) [#/Area] 0-1 [HPF] [facility] Automated leukocytes count i n urine sediment (number/area)Ordered By: Gloria Moss on 07-27-2021 WBC Auto (Urine sed) [#/Area] 1-2 [HPF] [facility] Bilirubin Test strip Ql (U)O rdered By: Gloria Moss on 07-27-2021 Bilirubin Ql (U) 1+ Negative [facility] Color Auto (U)Ordered By: Kota Moss on 07-27-2021 Color (U) Dark yellow Yellow [facility] Ketones Auto test strip (U) [Mass/Vol]Ordered By: Gloria Moss on 07-27-2021 Ketones (U) [Mass/Vol] Negative Negative [facility] - UrinalysisOrder ed By: Gloria Moss on 07-27-2021 Hyaline casts LM Ql (Urine sed) 0-8 [LPF] [facility] Nitrite Test strip Ql (U)Ord ered By: Gloria Moss on 07-27-2021 Nitrite Ql (U) Positive Negative [facility] Protein Auto test strip (U) [Mass/Vol]Ordered By: Gloria Moss on 07-27-2021 Protein (U) [Mass/Vol] Negative Negative [facility] Specific gravity Auto test s trip (U) [Rel density]Ordered By: Gloria Moss on 07-27-2021 Specific gravity (U) [Rel density] 1.010 1.001-1.[address] [facility] Squamous epithelial cells de tection in urine sediment by light microscopyOrdered By: Gloria Moss on 07-27-2021 Epithelial cells.squamous LM Ql (Urine sed) 3-4 [HPF] [facility] Urine bacteria detection by automated methodOrdered By: Gloria Moss on 07-27-2021 Bacteria Auto Ql (U) None seen None Seen [facility] Urine clarity by refractomet ry automatedOrdered By: Gloria Moss on 07-27-2021 Clarity Refractometry automated (U) Clear Clear [facility] Urine culture routineOrdered By: Gloria Moss on 07-27-2021 Bacteria identified Cx Nom (U) No Growth [address] [facility] Urine glucose measurement by automated test strip (mass/volume)Ordered By: Gloria Moss on 07-27-2021 Glucose Auto test strip (U) [Mass/Vol] Normal mg/dL Normal [facility] Urine hemoglobin detection b y automated test stripOrdered By: Gloria Moss on 07-27-2021 Hemoglobin Auto test strip Ql (U) Negative Negative [facility] Urine leukocyte esterase det ection by automated test stripOrdered By: Gloria Moss on 07-27-2021 Leukocyte esterase Auto test strip Ql (U) 1+ Negative [facility] Urobilinogen Auto test strip (U) [Mass/Vol]Ordered By: Gloria Moss on 07-27-2021 Urobilinogen (U) [Mass/Vol] Normal mg/dL Normal [facility] pH Auto test strip (U)Ordere d By: Gloria Moss on 07-27-2021 pH (U) 6.5 [pH] 5.0-9.[address] [facility] Automated erythrocytes count in urine sediment (number/area)Ordered By: Jennifer Arreaga on 07-22-2021 RBC Auto (Urine sed) [#/Area] 3-4 [HPF] [facility] Automated leukocytes count i n urine sediment (number/area)Ordered By: Jennifer Areraga on 07-22-2021 WBC Auto (Urine sed) [#/Area] 3-4 [HPF] [facility] Bilirubin Test strip Ql (U)O rdered By: Jennifer Arreaga on 07-22-2021 Bilirubin Ql (U) Negative Negative [facility] Color Auto (U)Ordered By: Sophia Arreaga on 07-22-2021 Color (U) Dark yellow Yellow [facility] Ketones Auto test strip (U) [Mass/Vol]Ordered By: Jennifer Arreaga on 07-22-2021 Ketones (U) [Mass/Vol] Negative Negative [facility] - UrinalysisOrder ed By: Jennifer Arreaga on 07-22-2021 Hyaline casts LM Ql (Urine sed) 0-8 [LPF] [facility] Nitrite Test strip Ql (U)Ord ered By: Jennifer Arreaga on 07-22-2021 Nitrite Ql (U) Positive Negative [facility] Protein Auto test strip (U) [Mass/Vol]Ordered By: Jennifer Arreaga on 07-22-2021 Protein (U) [Mass/Vol] Negative Negative [facility] Specific gravity Auto test s trip (U) [Rel density]Ordered By: Jennifer Arreaga on 07-22-2021 Specific gravity (U) [Rel density] 1.011 1.001-1.[address] [facility] Squamous epithelial cells de tection in urine sediment by light microscopyOrdered By: Jennifer Arreaga on 07-22-2021 Epithelial cells.squamous LM Ql (Urine sed) 5-9 [HPF] [facility] Urine bacteria detection by automated methodOrdered By: Jennifer Arreaga on 07-22-2021 Bacteria Auto Ql (U) None seen None Seen [facility] Urine clarity by refractomet ry automatedOrdered By: Jennifer Arreaga on 07-22-2021 Clarity Refractometry automated (U) Clear Clear [facility] Urine culture routineOrdered By: Jennifer Arreaga on 07-22-2021 Bacteria identified Cx Nom (U) No Growth [address] [facility] Urine glucose measurement by automated test strip (mass/volume)Ordered By: Jennifer Arreaga on 07-22-2021 Glucose Auto test strip (U) [Mass/Vol] Normal mg/dL Normal [facility] Urine hemoglobin detection b y automated test stripOrdered By: Jennifer Arreaga on 07-22-2021 Hemoglobin Auto test strip Ql (U) Negative Negative [facility] Urine leukocyte esterase det ection by automated test stripOrdered By: Jennifer Arreaga on 07-22-2021 Leukocyte esterase Auto test strip Ql (U) 1+ Negative [facility] Urobilinogen Auto test strip (U) [Mass/Vol]Ordered By: Jennifer Arreaga on 07-22-2021 Urobilinogen (U) [Mass/Vol] Normal mg/dL Normal [facility] pH Auto test strip (U)Ordere d By: Jennifer Arreaga on 07-22-2021 pH (U) 5.5 [pH] 5.0-9.[address] [facility] Automated erythrocytes count in urine sediment (number/area)Ordered By: Maciej Rodriguez on 07-19-2021 RBC Auto (Urine sed) [#/Area] None seen [HPF] [facility] Automated leukocytes count i n urine sediment (number/area)Ordered By: Maciej Rodriguez on 07-19-2021 WBC Auto (Urine sed) [#/Area] None seen [HPF] [facility] Bilirubin Test strip Ql (U)O rdered By: Maciej Rodriguez on 07-19-2021 Bilirubin Ql (U) 1+ Negative [facility] Color Auto (U)Ordered By: Salvatore Rodriguez on 07-19-2021 Color (U) Dark yellow Yellow [facility] Ketones Auto test strip (U) [Mass/Vol]Ordered By: Maciej Rodriguez on 07-19-2021 Ketones (U) [Mass/Vol] Negative Negative [facility] - UrinalysisOrder ed By: Maciej Rodriguez on 07-19-2021 Hyaline casts LM Ql (Urine sed) 0-8 [LPF] [facility] Nitrite Test strip Ql (U)Ord ered By: Maciej Rodriguez on 07-19-2021 Nitrite Ql (U) Positive Negative [facility] Protein Auto test strip (U) [Mass/Vol]Ordered By: Maciej Rodriguez on 07-19-2021 Protein (U) [Mass/Vol] Negative Negative [facility] Specific gravity Auto test s trip (U) [Rel density]Ordered By: Maciej Rodriguez on 07-19-2021 Specific gravity (U) [Rel density] 1.007 1.001-1.[address] [facility] Squamous epithelial cells de tection in urine sediment by light microscopyOrdered By: Maciej Rodriguez on 07-19-2021 Epithelial cells.squamous LM Ql (Urine sed) 0-1 [HPF] [facility] Urine bacteria detection by automated methodOrdered By: Maciej Rodriguez on 07-19-2021 Bacteria Auto Ql (U) None seen None Seen [facility] Urine clarity by refractomet ry automatedOrdered By: Maciej Rodriguez on 07-19-2021 Clarity Refractometry automated (U) Clear Clear [facility] Urine culture routineOrdered By: Maciej Rodriguez on 07-19-2021 Bacteria identified Cx Nom (U) [address] [facility] Urine glucose measurement by automated test strip (mass/volume)Ordered By: Maciej Rodriguez on 07-19-2021 Glucose Auto test strip (U) [Mass/Vol] Normal mg/dL Normal [facility] Urine hemoglobin detection b y automated test stripOrdered By: Maciej Rodriguez on 07-19-2021 Hemoglobin Auto test strip Ql (U) Negative Negative [facility] Urine leukocyte esterase det ection by automated test stripOrdered By: Maciej Rodriugez on 07-19-2021 Leukocyte esterase Auto test strip Ql (U) 1+ Negative [facility] Urobilinogen Auto test strip (U) [Mass/Vol]Ordered By: Maciej Rodriguez on 07-19-2021 Urobilinogen (U) [Mass/Vol] Normal mg/dL Normal [facility] pH Auto test strip (U)Ordere d By: Maciej Rodriguez on 07-19-2021 pH (U) 5.5 [pH] 5.0-9.[address] [facility] History and Physicalon 10-03 History and Physical MR#: [id number] Pt. Name: Maegan Dye Admitted: 09/27/2017 Date of : 1950 Attending Physician: Stromy Mcdonough MD Room #: 5AB [id number] Discharge Date: 09/29/2017 HISTORY AND PHYSICALCHIEF COMPLAINT: [...] is significant for DVT. The patient sadie Schwarz.PAST MEDICAL HISTORY: Posttraumatic stress disorder, depression,hypertension, history of DVT, GERD, Agent [place], chronic back pain.PAST SURGICAL HISTORY: Pain pump, [...] laceration of left forehead.7. Pain control.Reviewed By:Meghann Ramirez MD 10/08/2017 06:27 PElectronically Signed by:Stormy Mcdonough MD 10/17/2017 06:49 P Stormy Mcdonough MD I personally saw this patient on the day of the encounter, performed thekey portion(s) of the service and participated in the management andconfirm the resident's documentation. Please note there may be anadditional personal documentation from me. Date Dict: 10/02/2017/07:00 P/Meghann Ramirez MDDate Trans: 10/03/2017 05:29 A/[id number] Normal [facility] CREATININE URINE RANDOMon Creatinine 66.0 mg/dL Normal [facility] Comment on above: Result Comment: Ther e are no established reference values for random urine specimens Performed By: #### 1 0054, [id number] ####[facility] Discharge Summaryon 09-30-19 18 Discharge Summary MR#: [id number] Admitted: 09/27/2017 Discharged: 09/29/2017 Date of : 1950 Physician: Stormy Mcdonough MD DISCHARGE SUMMARYPRIMARY DIAGNOSIS: Subdural hematoma.SECONDARY DIAGNOSES: History of deep venous thrombosis, on Eliquis;chronic low back pain.HOSPITAL COURSE: The patient is a 67-year-old female, [facility] a [facility]. The patient is currently onEliquis for history of DVT. The patient initially presented to an outsidehospital where CT head demonstrated a subdural hematoma on the left side.The patient was then transferred to [facility] for further evaluation by theNeurosurgery team. [...] allquestions and concerns were addressed.Electronically Signed by:Stormy Mcdonough MD 09/30/2017 03:49 P Stormy Mcdonough MD I personally saw this patient on the day of the encounter, performed thekey portion(s) of the service and participated in the management andconfirm the resident's documentation. Please note there may be anadditional personal documentation from me. Date Dict: 09/29/2017/07:43 A/Letitia Ruiz, MDDate Trans: 09/29/2017 08:00 Brionna/[id number] c: Tomas Garcia, Gerardo [address] [facility] [address] Normal [facility] SODIUM URINE RANDOMon 2017 Sodium 41 mmol/L Normal [facility] Comment on above: Result Comment: Ther e are no established reference values for random urine specimens Performed By: #### 1 ####[facility] [facility] [place] [address], [facility] TOX PANEL URINEon 09-29-2017 50 THC Negative Normal NEGATIVE [facility] Comment on above: Performed By: #### 1 ####[facility] [facility] [place] [address], [place] BARBITURATES Negative Normal NEGATIVE [facility] Comment on above: Performed By: #### 1 ####[facility] [place] [address], [place] MONO AMPHET Negative Normal NEGATIVE [facility] Comment on above: Performed By: #### 1 ####[facility] [place] [address], [place] PROPOXYPHENE Negative Normal NEGATIVE [facility] Comment on above: Performed By: #### 1 ####[facility] [place] [address], [place] TRICYCLICS Negative Normal NEGATIVE [facility] Comment on above: Performed By: #### 1 ####[facility] [place] [address], [place] Urine, benzodiazepines presence Negative Normal NEGATIVE [facility] Comment on above: Performed By: #### 1 ####[facility] [facility] [place] [address], [place] Urine, cocaine presence Negative Normal NEGATIVE [facility] Comment on above: Performed By: #### 1 ####[facility] [facility] [place] [address], [place] Urine, methadone presence Negative Normal NEGATIVE [facility] Comment on above: Performed By: #### 1 ####[facility] [place] [address], [place] Urine, opiates presence Positive Abnormal NEGATIVE [facility] Comment on above: Performed By: #### 1 ####[facility] [place] [address], [place] Urine, phencyclidine presence Negative Normal NEGATIVE [facility] Comment on above: Performed By: #### 1 ####[facility] [place] [address], [place] URINALYSIS REFLEXon 09-30-19 18 Bilirubin (total) Negative Normal NEGATIVE [facility] Comment on above: Order Comment: No: D o not add to previous draw Performed By: #### 1 53, ####[facility] [place] [address], [facility] BLOOD SMALL Abnormal NEGATIVE [facility] Comment on above: Order Comment: No: D o not add to previous draw Performed By: #### 1 53, ####[facility] [place] [address], [facility] EPIS MANY Abnormal FEW,OCC,NO NE SEEN [facility] Comment on above: Order Comment: No: D o not add to previous draw Performed By: #### 1 53, ####[facility] [place] [address], [facility] Glucose mass conc Negative Normal NEGATIVE [facility] Comment on above: Order Comment: No: D o not add to previous draw Performed By: #### 1 53, ####[facility] [place] [address], [facility] KETONE Negative Normal NEGATIVE [facility] Comment on above: Order Comment: No: D o not add to previous draw Performed By: #### 1 53, ####[facility] [place] [address], [facility] LEUK ZENA Negative Normal NEGATIVE [facility] Comment on above: Order Comment: No: D o not add to previous draw Performed By: #### 1 53, ####[facility] [place] [address], [facility] MUCUS THREADS OCC Abnormal NONE SEEN [facility] Comment on above: Order Comment: No: D o not add to previous draw Performed By: #### 1 53, ####[facility] [id number], [facility] pH of blood 5.0 [pH] Normal 5.0-8.0 [facility] Comment on above: Order Comment: No: D o not add to previous draw Performed By: #### 1 ####[facility] [place] [address], [facility] Protein Negative Normal NEGATIVE [facility] Comment on above: Order Comment: No: D o not add to previous draw Performed By: #### 1 ####[facility] [place] [address], [place] SPEC GRAV 1.008 Low 1.015-1.02 0 [facility] Comment on above: Order Comment: No: D o not add to previous draw Performed By: #### 1 ####[facility] [place] [address], [place] Urine, appearance CLEAR Normal CLEAR [facility] Comment on above: Order Comment: No: D o not add to previous draw Performed By: #### 1 ####[facility] [facility] [place] [address], [place] Urine, bacteria in sediment OCC Abnormal NONE SEEN [facility] Comment on above: Order Comment: No: D o not add to previous draw Performed By: #### 1 ####[facility] [place] [address], [place] Urine, color STRAW Abnormal YELLOW [facility] Comment on above: Order Comment: No: D o not add to previous draw Performed By: #### 1 ####[facility] [place] [address], [place] Urine, nitrite presence Negative Normal NEGATIVE [facility] Comment on above: Order Comment: No: D o not add to previous draw Performed By: #### 1 ####[facility] [place] [address], [facility] WBC UA 3-5 Abnormal NONE SEEN [facility] Comment on above: Order Comment: No: D o not add to previous draw Performed By: #### 1 53, ####[facility] [place] [address], [facility] BASIC METABOLIC PANELon 05-0 Calcium 8.2 mg/dL Low 8.6-10.3 [facility] Comment on above: Order Comment: No: D o not add to previous draw Performed By: #### 0 0071, 99697, 02424, 48615 ####[facility] [place] [address], [facility] Chloride 107 mmol/L Normal 98-107 [facility] Comment on above: Order Comment: No: D o not add to previous draw Performed By: #### 0 0071, 65928, 05776, 24302 ####[facility] [place] [address], [facility] CO2 29 mmol/L Normal 21-31 [facility] Comment on above: Order Comment: No: D o not add to previous draw Performed By: #### 0 0071, 02495, 73909, 24299 ####[facility] [place] [address], [facility] Creatinine 1.24 mg/dL High 0.60-1.20 [facility] Comment on above: Order Comment: No: D o not add to previous draw Performed By: #### 0 0071, 45244, 49192, 40220 ####[facility] [place] [address], [facility] eGFR (black) 52 ml/min/1.73sq m Abnormal >60 [facility] Comment on above: Order Comment: No: D o not add to previous draw Performed By: #### 0 0071, 48090, 91732, 57562 ####[facility] eGFR (non-black) 43 ml/min/1.73sq m Abnormal >60 [facility] Comment on above: Order Comment: No: D o not add to previous draw Performed By: #### 0 0071, 05341, 23006, 73950 ####[facility] Glucose mass conc 115 mg/dL High 70-100 [facility] Comment on above: Order Comment: No: D o not add to previous draw Performed By: #### 0 0071, 52120, 11398, 04847 ####[facility] Potassium molar conc 4.1 mmol/L Normal 3.5-5.1 [facility] Comment on above: Order Comment: No: D o not add to previous draw Performed By: #### 0 0071, 92577, 78353, 55890 ####[facility] Sodium 138 mmol/L Normal 136-145 [facility] Comment on above: Order Comment: No: D o not add to previous draw Performed By: #### 0 0071, 84977, 04064, 19662 ####[facility] Urea nitrogen 12 mg/dL Normal 7-25 [facility] Comment on above: Order Comment: No: D o not add to previous draw Performed By: #### 0 0071, 83490, 93455, 96849 ####[facility] CBC COMPLETE BLOOD COUNTon 0 - Erythrocyte distribution width Auto Ratio (RBC) 12.1 % Normal 11.5-15.0 [facility] Comment on above: Order Comment: No: D o not add to previous draw Performed By: #### 5 0608 ####[facility] Erythrocytes (RBC) 0 % Normal 0-0 [facility] Comment on above: Order Comment: No: D o not add to previous draw Performed By: #### 5 0608 ####[facility] Erythrocytes (RBC) 2.94 10*6/uL Low 3.80-5.00 [facility] Comment on above: Order Comment: No: D o not add to previous draw Performed By: #### 5 0608 ####[facility] Hematocrit (HCT) 28.2 % Low 36.0-45.0 [facility] Comment on above: Order Comment: No: D o not add to previous draw Performed By: #### 5 0608 ####[facility] Hemoglobin mass conc (Bld) 8.5 g/dL Low 12.0-15.0 [facility] Comment on above: Order Comment: No: D o not add to previous draw Performed By: #### 5 0608 ####[facility] MCH 28.9 pg Normal 27.0-33.0 [facility] Comment on above: Order Comment: No: D o not add to previous draw Performed By: #### 5 0608 ####[facility] MCHC mass conc (RBC) 30.1 g/dL Low 32.0-35.0 [facility] Comment on above: Order Comment: No: D o not add to previous draw Performed By: #### 5 0608 ####[place] [id number] [address] MCV 95.9 fL Normal 82.0-98.0 [facility] Comment on above: Order Comment: No: D o not add to previous draw Performed By: #### 5 0608 ####[address] PLAT CNT 195 10*3/uL Normal 150-400 [facility] Comment on above: Order Comment: No: D o not add to previous draw Performed By: #### 5 0608 ####[place] [address] [address] WBC (Leukocytes) 6.01 10*3/uL Normal 4.00-10.60 [facility] Comment on above: Order Comment: No: D o not add to previous draw Performed By: #### 5 0608 ####[address] BRAIN WO CONTRASTon 09-28 CT BRAIN [facility]AST [facility] [address]df[address] [place] [id number] Brittnee ent Name: MAEGAN DYE : 1950Sex: FAge: Race: WhiteMRN: [id number]. Location: [id number] Status: IVisit #: [id number] Date: 09/27/2017 10:30:00 PMCompleted Date: 09/27/2017 10:49 PMRequesting Provider: MEGHANN RAMIREZ Attending Provider: STORMY MCDONOUGH Report Copy To: Signs & Symptoms: BleedHistory: Patient history not availableComments: Progression of Known BleedExam: CT BRAIN WO CONTRASTAccession #: [id number] ===CT BRAIN WO CONTRAST 09/27/2017 10:49 PM [...] shift, mass effect, or herniation. Approved by:Karsten Rivera on 09/27/2017 11:30 PM EDT. I, Suhail Trinh, have reviewed the images and report and concur with these findings. Electronically signed by:Suhail Trinh. Transcribed by: [email or web address], User Resident: KARSTEN RIVERAElectronically Signed by: SUHAIL TRINH @ 09/28/2017 06:32 AMI personally read this/these film(s) with this resident Normal [facility] Comment on above: Order Comment: No: D o not add to previous draw Consultationon 09-28-2017 Consultation MR#: [id number] Pt. Name: Maegan Dye Date of Service: 09/28/2017 Room #: [facility] [id number] Birthdate: 1950 Referring Physician: CONSULTATIONCLINICAL SERVICE: Neurosurgery.TRAUMA NAME: Female Daryl.REASON FOR CONSULT: Subdural hematoma status post fall.HISTORY OF PRESENT ILLNESS: A 67-year-old woman status post fall. She sadie Eliquis for anticoagulation. She reportedly fell and hit the sidewalk,tripping over the pavement. There was reported loss of consciousness withaltered mental status and she went to [facility] initially forevaluation. There, her head CT showed subdural hematoma on the left side.[facility] [facility] for further evaluation and management.The patient [...] able to be successfully improrted into the [facility] PACS system and thedisc was not [...] Signed by:Kyle Ken MD 10/12/2017 06:09 P __CANDACE Jenkinsate Dict: 09/28/2017/10:37 Brionna/CANDACE Jenkinsate Trans: 09/28/2017 04:01 [id number] c: Tomas Garcia D.O. [address] [facility] [address] [facility] Consult[facility] MR#: [id number] Pt. Name: Maegan Dye Date of Service: 09/27/2017 Room #: REINALDO [id number] Birthdate: 1950 Referring Physician: CONSULTATIONTRAUMA NAME: Female [...] to this patient'sinjuries, she was transferred to [facility] for further management. Onpresentation, the patient [...] blood pressure of 108/68, respirations 18, oxygen [id number]% on room air.GENERAL: The patient looks well. [...] to ICU and continue ICU management.Dr. Stormy Mcdonough was present in the [facility] [place].Electronically Signed by:Stormy Mcdonough MD 10/17/2017 06:49 P __Stormy Mcdonough MD I personally saw this patient on the day of the encounter, performed thekey portion(s) of the service and participated in the management andconfirm the resident's documentation. Please note there may be anadditional personal documentation from me. Date Dict: 09/27/2017/05:09 P/Dakota Donald Trans: 09/28/2017 03:47 [id number] Normal [facility] MAGNESIUM BLOODon 09-28-2017 Magnesium 1.8 mg/dL Low 1.9-2.7 [facility] Comment on above: Order Comment: No: D o not add to previous draw Performed By: #### 0 0071, [id number], [id number], [id number] ####[facility] [facility].[address] PHOSPHORUS BLOODon 8 Phosphate 4.4 mg/dL Normal 2.5-5.0 [facility] Comment on above: Order Comment: No: D o not add to previous draw Performed By: #### 0 0071, [id number], [id number], [id number] ####[facility] [facility] [place] [address], [facility] TROPONIN-Ion 09-28-2017 Troponin I.cardiac mass conc 0.01 ng/mL Normal 0.00-0.04 [facility] Comment on above: Result Comment: REFE RENCE RANGES: 0.00 - 0.04 ng/ml NORMAL 0.05 - 0.50 ng/ml INDETERMINATE > 0.50 ng/ml CONSISTENT WITH AN M.I. Performed By: #### 1 53, ####[facility] [facility] [address], [facility] ALCOHOLon 09-27-2017 Ethanol NONE DETECTED Normal [facility] Comment on above: Result Comment: Divi de by 1000 to convert mg/dL to percent. Example: 100mg/dL = 0.1%. Performed By: #### 1 53, ####[facility] APTTon 09-27-2017 aPTT 36.2 s High 25.0-35.0 [facility] Comment on above: Order Comment: No: D [...] THIS PURPOSE. Performed By: #### 5 7307, [id number] ####[facility] [facility] BASIC METABOLIC PANELon Calcium 9.2 mg/dL Normal 8.6-10.3 [facility] Comment on above: Order Comment: No: D o not add to previous draw Performed By: #### 0 0071 ####[facility] Chloride 101 mmol/L Normal 98-107 [facility] Comment on above: Order Comment: No: D o not add to previous draw Performed By: #### 0 0071 ####[place] [id number] [facility] [place] [address], [facility] CO2 27 mmol/L Normal 21-31 [facility] Comment on above: Order Comment: No: D o not add to previous draw Performed By: #### 0 0071 ####[place] [id number] Creatinine 1.28 mg/dL High 0.60-1.20 [facility] Comment on above: Order Comment: No: D o not add to previous draw Performed By: #### 0 0071 ####[place] [id number] eGFR (black) 50 ml/min/1.73sq m Abnormal >60 [facility] Comment on above: Order Comment: No: D o not add to previous draw Performed By: #### 0 0071 ####[facility] eGFR (non-black) 42 ml/min/1.73sq m Abnormal >60 [facility] Comment on above: Order Comment: No: D o not add to previous draw Performed By: #### 0 0071 ####[facility] [facility].[address] Glucose mass conc 104 mg/dL High 70-100 [facility] Comment on above: Order Comment: No: D o not add to previous draw Performed By: #### 0 0071 ####[place] [id number] [facility].[address] Potassium molar conc 4.4 mmol/L Normal 3.5-5.1 [facility] Comment on above: Order Comment: No: D o not add to previous draw Performed By: #### 0 0071 ####[facility] Sodium 134 mmol/L Low 136-145 [facility] Comment on above: Order Comment: No: D o not add to previous draw Performed By: #### 0 0071 ####[facility] [facility].[address] Urea nitrogen 13 mg/dL Normal 7-25 [facility] Comment on above: Order Comment: No: D o not add to previous draw Performed By: #### 0 0071 ####[address] CBC W/DIFFon 09-27-2017 ABS BASOPHILS 0.1 10*3/uL Normal 0.0-0.2 [facility] Comment on above: Performed By: #### 5 0103 ####[facility] ABS IMM GRANS 0.1 10*3/uL Normal 0.0-0.2 [facility] Comment on above: Performed By: #### 5 0103 ####[facility] [place] [address], [facility] Basophils Auto #/vol (Bld) 0.9 % Normal 0.0-1.0 [facility] Comment on above: Performed By: #### 0103 ####[facility] [facility].[address] Eosinophils 0.2 10*3/uL Normal 0.0-0.5 [facility] Comment on above: Performed By: #### 102 ####[facility] [facility].[address] Eosinophils/100 leukocytes 2.3 % Normal 0.0-6.0 [facility] Comment on above: Performed By: #### 102 ####[facility] [facility].[address] Erythrocyte distribution width Auto Ratio (RBC) 12.2 % Normal 11.5-15.0 [facility] Comment on above: Performed By: #### 3 ####[facility] [facility].[address] Erythrocytes (RBC) 0 % Normal 0-0 [facility] Comment on above: Performed By: #### 3 ####[facility] [facility].[address] Erythrocytes (RBC) 3.31 10*6/uL Low 3.80-5.00 [facility] Comment on above: Performed By: #### 102 ####[facility] Hematocrit (HCT) 30.5 % Low 36.0-45.0 [facility] Comment on above: Performed By: #### 5 0103 ####[facility] [facility].[address] Hemoglobin mass conc (Bld) 9.7 g/dL Low 12.0-15.0 [facility] Comment on above: Performed By: #### 5 0103 ####[facility] [facility].[address] IMMATURE GRANS 0.5 % Normal 0.0-1.0 [facility] Comment on above: Performed By: #### 5 0103 ####[facility] Lymphocytes 2.5 10*3/uL Normal 1.2-4.0 [facility] Comment on above: Performed By: #### 5 0103 ####[facility] Lymphocytes/100 leukocytes 24.5 % Normal 20.0-45.0 [facility] Comment on above: Performed By: #### 5 3 ####[facility] MCH 29.3 pg Normal 27.0-33.0 [facility] Comment on above: Performed By: #### 5 3 ####[facility] [facility].[address] MCHC mass conc (RBC) 31.8 g/dL Low 32.0-35.0 [facility] Comment on above: Performed By: #### 5 3 ####[facility] MCV 92.1 fL Normal 82.0-98.0 [facility] Comment on above: Performed By: #### 5 3 ####[facility] [place] [address], [facility] Monocytes 0.8 10*3/uL Normal 0.1-1.0 [facility] Comment on above: Performed By: #### 5 3 ####[facility] [place] [address], [facility] MONOS 8.1 % Normal 5.0-12.0 [facility] Comment on above: Performed By: #### 5 3 ####[facility] [facility].[address] Neutrophils 6.4 10*3/uL Normal 1.6-7.6 [facility] Comment on above: Performed By: #### 5 102 ####[facility] [facility].[address] Neutrophils/100 leukocytes 63.7 % Normal 40.0-72.0 [facility] Comment on above: Performed By: #### 5 3 ####[facility] [facility] [place] [address], [facility] PLAT CNT 214 10*3/uL Normal 150-400 [facility] Comment on above: Performed By: #### 5 3 ####[facility] [facility].[address] WBC (Leukocytes) 10.06 10*3/uL Normal 4.00-10.60 [facility] Comment on above: Performed By: #### 5 102 ####[facility] LACTATE BLOODon 09-27-2017 Lactate 0.6 mmol/L Normal .5-2.2 [facility] Comment on above: Order Comment: No: D o not add to previous draw Performed By: #### 1 0054, 65534 ####[facility] PROTHROMBIN TIMEon 8 INR Coag RelTime (PPP) 1.31 {INR} High 0.91-1.16 Th e [facility] Comment on above: Order Comment: No: D [...] OF ACTION, CLINICALEFFECTIVENESS, AND OPTIMAL THERAPEUTIC RANGE. [id number];108:231S-246S. Performed By: #### 5 7307, 77909 ####[facility] Prothrombin time (PT) Coag time (PPP) 16.3 s High 12.3-14.8 [facility] Comment on above: Order Comment: No: D o not add to previous draw Result Comment: ALL RESULTS MUST BE INTERPRETED WITH RESPECT TO BLOOD DRAWING ARTIFACTOR DILUTION ERROR OF ANTICOAGULANT AT THE TIME OF SAMPLING. Performed By: #### 5 7307, [id number] ####[facility] Vital Signs Date Time Vital Sign Value Performing Clinician Facility 07-28-2024 11:04-0500 Body temperature 98.06 [degF] Astrit [facility] 07-28-2024 11:04-0500 Diastolic blood pressure 74 mm[Hg] [facility] 07-28-2024 11:04-0500 Heart rate 78 /min [facility] 07-28-2024 11:04-0500 Respiratory rate 20 /min [facility] 07-28-2024 11:04-0500 SaO2% (BldA) [Mass fraction] 96 % [facility] 07-28-2024 11:04-0500 Systolic blood pressure 131 mm[Hg] [facility] 07-25-2024 09:45-0500 Body temperature 97.7 [degF] [facility] 07-25-2024 09:45-0500 Diastolic blood pressure 72 mm[Hg] [facility] 07-25-2024 09:45-0500 Heart rate 73 /min [facility] 07-25-2024 09:45-0500 Respiratory rate 20 /min [facility] 07-25-2024 09:45-0500 SaO2% (BldA) [Mass fraction] 93 % [facility] 07-25-2024 09:45-0500 Systolic blood pressure 140 mm[Hg] [facility] 07-24-2024 08:49-0500 Body temperature 98.42 [degF] Chandan Onofre [facility] 07-24-2024 08:49-0500 Diastolic blood pressure 98 mm[Hg] Chandan Adhikari [facility] 07-24-2024 08:49-0500 Heart rate 75 /min Chandan Adhikari [facility] 07-24-2024 08:49-0500 Respiratory rate 16 /min Chandan Onofre [facility] 07-24-2024 08:49-0500 SaO2% (BldA) [Mass fraction] 98 % Chandan Adhikari [facility] 07-24-2024 08:49-0500 Systolic blood pressure 152 mm[Hg] Chandan Adhikari [facility] 07-20-2024 07:50-0500 Diastolic blood pressure 94 mm[Hg] Johny Demetris [facility] 07-20-2024 07:50-0500 Heart rate 104 /min Johny Demetris [facility] 07-20-2024 07:50-0500 Mean blood pressure 120 mm[Hg] Johny Willson [facility] 07-20-2024 07:50-0500 Respiratory rate 18 /min Johny Willson [facility] 07-20-2024 07:50-0500 SaO2% (BldA) [Mass fraction] 96 % Johny Willson [facility] 07-20-2024 07:50-0500 Systolic blood pressure 173 mm[Hg] Johny Willson [facility] 07-20-2024 07:12-0500 Hourly Rounding Johnybhavani Willson [facility] Comment on above: Result Comment: resting in cart with eye s closed, chest rise and fall equal 07-20-2024 06:44-0500 Diastolic blood pressure 82 mm[Hg] Johny Willson [facility] 07-20-2024 06:44-0500 Mean blood pressure 98 mm[Hg] Johny Willson [facility] 07-20-2024 06:44-0500 Systolic blood pressure 129 mm[Hg] Johny Willson [facility] 07-20-2024 04:55-0500 Body temperature 97.7 [degF] Johny Willson [facility] 07-20-2024 04:55-0500 Diastolic blood pressure 73 mm[Hg] Johny Willson [facility] 07-20-2024 04:55-0500 Heart rate 90 /min Johny Willson [facility] 07-20-2024 04:55-0500 Respiratory rate 16 /min Johny Willson [facility] 07-20-2024 04:55-0500 SaO2% (BldA) [Mass fraction] 96 % Johny Willson [facility] 07-20-2024 04:55-0500 Systolic blood pressure 138 mm[Hg] Johny Willson [facility] 07-12-2024 13:36-0500 Heart rate 72 /min Chandan Adhikari [facility] 07-12-2024 13:36-0500 Respiratory rate 18 /min Chandan Adhikari [facility] 07-12-2024 13:36-0500 SaO2% (BldA) [Mass fraction] 97 % Chandan Adhikari [facility] 07-12-2024 12:51-0500 Body temperature 98.42 [degF] Chandan Munoze [facility] 07-12-2024 12:51-0500 Diastolic blood pressure 77 mm[Hg] Chandan Onofre [facility] 07-12-2024 12:51-0500 Heart rate 72 /min Chandan Onofre [facility] 07-12-2024 12:51-0500 Respiratory rate 18 /min Chandan Munoze [facility] 07-12-2024 12:51-0500 SaO2% (BldA) [Mass fraction] 97 % Chandan Adhikari [facility] 07-12-2024 12:51-0500 Systolic blood pressure 148 mm[Hg] Chandan Adhikari [facility] 07-04-2024 09:05-0500 Diastolic blood pressure 69 mm[Hg] [facility] 07-04-2024 09:05-0500 Heart rate 96 /min [facility] 07-04-2024 09:05-0500 Respiratory rate 18 /min [facility] 07-04-2024 09:05-0500 SaO2% (BldA) [Mass fraction] 98 % [facility] 07-04-2024 09:05-0500 Systolic blood pressure 122 mm[Hg] [facility] 07-04-2024 07:00-0500 Body temperature 98.24 [degF] [facility] 07-04-2024 07:00-0500 Diastolic blood pressure 77 mm[Hg] [facility] 07-04-2024 07:00-0500 Heart rate 93 /min [facility] 07-04-2024 07:00-0500 Respiratory rate 20 /min [facility] 07-04-2024 07:00-0500 SaO2% (BldA) [Mass fraction] 97 % [facility] 07-04-2024 07:00-0500 Systolic blood pressure 119 mm[Hg] [facility] 06-20-2024 14:27-0500 Hourly Rounding Johny Willson [facility] 06-20-2024 14:00-0500 Diastolic blood pressure 74 mm[Hg] Johny Willson [facility] 06-20-2024 14:00-0500 Heart rate 71 /min Johny Demetris [facility] 06-20-2024 14:00-0500 Mean blood pressure 90 mm[Hg] Johny Demetris [facility] 06-20-2024 14:00-0500 Respiratory rate 17 /min Johny Demetris [facility] 06-20-2024 14:00-0500 SaO2% (BldA) [Mass fraction] 95 % Johny Demetris [facility] 06-20-2024 14:00-0500 Systolic blood pressure 122 mm[Hg] Johny Demetris [facility] 06-20-2024 13:00-0500 Diastolic blood pressure 80 mm[Hg] Johny Demetris [facility] 06-20-2024 13:00-0500 Heart rate 69 /min Johny Demetris [facility] 06-20-2024 13:00-0500 Mean blood pressure 99 mm[Hg] Johny Demetris [facility] 06-20-2024 13:00-0500 Respiratory rate 18 /min Johny Demetris [facility] 06-20-2024 13:00-0500 SaO2% (BldA) [Mass fraction] 96 % Johny Demetris [facility] 06-20-2024 13:00-0500 Systolic blood pressure 137 mm[Hg] Johny Demetris [facility] 06-20-2024 12:00-0500 Diastolic blood pressure 79 mm[Hg] Johny Demetris [facility] 01-26-2025 12:00-0500 Mean blood pressure 97 mm[Hg] Johny Demetris [facility] 06-20-2024 12:00-0500 Respiratory rate 20 /min Johny Demetris [facility] 06-20-2024 12:00-0500 Systolic blood pressure 132 mm[Hg] Johny Demetris [facility] 06-20-2024 11:53-0500 Body temperature 98.06 [degF] Johny Willson [facility] 06-20-2024 11:53-0500 Heart rate 75 /min Johny Demetris [facility] 06-17-2024 14:04-0500 Blood Pressure Location Adrian Kinsey [facility] 06-17-2024 14:04-0500 Body temperature 98.6 [degF] Adrian Kinsey [facility] 06-17-2024 14:04-0500 Diastolic blood pressure 64 mm[Hg] Adrian Kinsey [facility] 06-17-2024 14:04-0500 Heart rate 76 /min Adrian Kinsey [facility] 06-17-2024 14:04-0500 SaO2% (BldA) [Mass fraction] 94 % Adrian Kinsey [facility] 06-17-2024 14:04-0500 Systolic blood pressure 118 mm[Hg] Adrian Kinsey [facility] 05-16-2024 15:00-0500 Diastolic blood pressure 63 mm[Hg] [facility] 05-16-2024 15:00-0500 Heart rate 56 /min [facility] 05-16-2024 15:00-0500 Mean blood pressure 84 mm[Hg] [facility] 05-16-2024 15:00-0500 Systolic blood pressure 127 mm[Hg] [facility] 05-16-2024 13:51-0500 Blood Pressure Location [facility] 05-16-2024 13:51-0500 Diastolic blood pressure 70 mm[Hg] [facility] 05-16-2024 13:51-0500 Heart rate 55 /min [facility] 05-16-2024 13:51-0500 Mean blood pressure 91 mm[Hg] [facility] 05-16-2024 13:51-0500 Respiratory rate 16 /min [facility] 05-16-2024 13:51-0500 SaO2% (BldA) [Mass fraction] 93 % [facility] 05-16-2024 13:51-0500 Systolic blood pressure 134 mm[Hg] [facility] 05-16-2024 12:53-0500 Body temperature 99.68 [degF] [facility] 05-16-2024 12:53-0500 Diastolic blood pressure 93 mm[Hg] [facility] 05-16-2024 12:53-0500 Heart rate 63 /min [facility] 05-16-2024 12:53-0500 Respiratory rate 18 /min [facility] 05-16-2024 12:53-0500 Systolic blood pressure 135 mm[Hg] [facility] 05-10-2024 18:01-0500 Body temperature 98.06 [degF] Chandan Adhikari [facility] 05-10-2024 18:01-0500 Diastolic blood pressure 72 mm[Hg] Chandan Adhikari [facility] 05-10-2024 18:01-0500 Heart rate 75 /min Chandan Adhikari [facility] 05-10-2024 18:01-0500 Respiratory rate 16 /min Chandan Adhikari [facility] 05-10-2024 18:01-0500 SaO2% (BldA) [Mass fraction] 94 % Chandan Adhikari [facility] 05-10-2024 18:01-0500 Systolic blood pressure 160 mm[Hg] Chandan Adhikari [facility] 05-04-2024 17:50-0500 Body temperature 98.24 [degF] [facility] 05-04-2024 17:50-0500 Diastolic blood pressure 67 mm[Hg] [facility] 05-04-2024 17:50-0500 Heart rate 73 /min [facility] 05-04-2024 17:50-0500 Respiratory rate 16 /min [facility] 05-04-2024 17:50-0500 SaO2% (BldA) [Mass fraction] 94 % [facility] 05-04-2024 17:50-0500 Systolic blood pressure 114 mm[Hg] [facility] 05-03-2024 20:50-0500 Body temperature 97.88 [degF] Kaylinn Dokken [facility] 05-03-2024 20:50-0500 Diastolic blood pressure 88 mm[Hg] Kaylinn Dokken [facility] 05-03-2024 20:50-0500 Heart rate 79 /min Kaylinn Dokken [facility] 05-03-2024 20:50-0500 Respiratory rate 18 /min Kaylinn Dokken [facility] 05-03-2024 20:50-0500 SaO2% (BldA) [Mass fraction] 94 % Mati Taylor [facility] 05-03-2024 20:50-0500 Systolic blood pressure 160 mm[Hg] Mati Taylor [facility] 04-28-2024 12:19-0500 Body temperature 98.24 [degF] Chandan Adhikari [facility] 04-28-2024 12:19-0500 Diastolic blood pressure 71 mm[Hg] Chandan Adhikari [facility] 04-28-2024 12:19-0500 Heart rate 73 /min Chandan Munoze [facility] 04-28-2024 12:19-0500 Respiratory rate 18 /min Chandan Adhikari [facility] 04-28-2024 12:19-0500 SaO2% (BldA) [Mass fraction] 94 % Chandan Adhikari [facility] 04-28-2024 12:19-0500 Systolic blood pressure 133 mm[Hg] Chandan Munoze [facility] 04-26-2024 19:14-0500 Heart rate 77 /min Chandan Munoze [facility] 04-26-2024 19:14-0500 Respiratory rate 20 /min Chandan Munoze [facility] 04-26-2024 19:14-0500 SaO2% (BldA) [Mass fraction] 97 % Chandan Munoze [facility] 04-26-2024 18:37-0500 Body temperature 98.78 [degF] Chandan Onofre [facility] 04-26-2024 18:37-0500 Diastolic blood pressure 67 mm[Hg] Chandan Adhikari [facility] 04-26-2024 18:37-0500 Heart rate 74 /min Chandan Adhikari [facility] 04-26-2024 18:37-0500 Respiratory rate 18 /min Chandan Adhikari [facility] 04-26-2024 18:37-0500 SaO2% (BldA) [Mass fraction] 91 % Chandan Adhikari [facility] 04-26-2024 18:37-0500 Systolic blood pressure 139 mm[Hg] Chandan Adhikari [facility] 04-25-2024 14:18-0500 Body temperature 98.42 [degF] [facility] 04-25-2024 14:18-0500 Diastolic blood pressure 72 mm[Hg] [facility] 04-25-2024 14:18-0500 Heart rate 77 /min [facility] 04-25-2024 14:18-0500 Respiratory rate 18 /min [facility] 04-25-2024 14:18-0500 SaO2% (BldA) [Mass fraction] 93 % [facility] 04-25-2024 14:18-0500 Systolic blood pressure 136 mm[Hg] [facility] 04-21-2024 13:13-0500 Body temperature 97.88 [degF] Johny Willson [facility] 04-21-2024 13:13-0500 Diastolic blood pressure 76 mm[Hg] Johny Willson [facility] 04-21-2024 13:13-0500 Heart rate 67 /min Johny Willson [facility] 04-21-2024 13:13-0500 Respiratory rate 18 /min Johny Willson [facility] 04-21-2024 13:13-0500 SaO2% (BldA) [Mass fraction] 93 % Johny Willson [facility] 04-21-2024 13:13-0500 Systolic blood pressure 173 mm[Hg] Johny Willson [facility] 04-19-2024 10:59-0500 Body temperature 98.06 [degF] [facility] 04-19-2024 10:59-0500 Diastolic blood pressure 69 mm[Hg] [facility] 04-19-2024 10:59-0500 Heart rate 66 /min [facility] 04-19-2024 10:59-0500 Respiratory rate 18 /min [facility] 04-19-2024 10:59-0500 SaO2% (BldA) [Mass fraction] 93 % [facility] 04-19-2024 10:59-0500 Systolic blood pressure 121 mm[Hg] [facility] 04-17-2024 15:59-0500 Body temperature 97.52 [degF] Carlos Coates [facility] 04-17-2024 15:59-0500 Diastolic blood pressure 69 mm[Hg] Carlos Coates [facility] 04-17-2024 15:59-0500 Heart rate 64 /min Carlos Coates [facility] 04-17-2024 15:59-0500 Respiratory rate 16 /min Carlos Jaxon [facility] 04-17-2024 15:59-0500 SaO2% (BldA) [Mass fraction] 96 % [facility] [facility] 04[facility]-2024 15:59-0500 Systolic blood pressure 123 mm[Hg] Carlos [facility] 04-14-2024 18:04-0500 Body temperature 97.88 [degF] Johny Will[facility] 04-14-2024 18:04-0500 Diastolic blood pressure 73 mm[Hg] Johny Willson [facility] 04-14-2024 18:04-0500 Heart rate 80 /min Johny Will[facility] 04-14-2024 18:04-0500 Respiratory rate 18 /min Johny Will[facility] 04-14-2024 18:04-0500 SaO2% (BldA) [Mass fraction] 94 % Johny Willson [facility] 04-14-2024 18:04-0500 Systolic blood pressure 161 mm[Hg] Johny Willson [facility] 04-11-2024 15:30-0500 Diastolic blood pressure 79 mm[Hg] Carlos Coates [facility] 04-11-2024 15:30-0500 Heart rate 67 /min Carlos J[facility] 04-11-2024 15:30-0500 Mean blood pressure 103 mm[Hg] Carlos J[facility] 04-11-2024 15:30-0500 Respiratory rate 18 /min Carlos J[facility] 04-11-2024 15:30-0500 SaO2% (BldA) [Mass fraction] 96 % Carlos Jaxon [facility] 04-11-2024 15:30-0500 Systolic blood pressure 151 mm[Hg] Carlos J[facility] 04-11-2024 15:00-0500 Diastolic blood pressure 65 mm[Hg] Carlos J[facility] 04-11-2024 15:00-0500 Heart rate 64 /min Carlos J[facility] 04-11-2024 15:00-0500 Mean blood pressure 87 mm[Hg] Carlos J[facility] 04-11-2024 15:00-0500 SaO2% (BldA) [Mass fraction] 94 % Carlos J[facility] 04-11-2024 15:00-0500 Systolic blood pressure 131 mm[Hg] Carlos J[facility] 04-11-2024 14:32-0500 Diastolic blood pressure 69 mm[Hg] Carlos J[facility] 04-11-2024 14:32-0500 Heart rate 63 /min Carlos J[facility] 04-11-2024 14:32-0500 Mean blood pressure 92 mm[Hg] Carlos J[facility] 04-11-2024 14:32-0500 Respiratory rate 18 /min Carlos J[facility] 04-11-2024 14:32-0500 SaO2% (BldA) [Mass fraction] 93 % Carlos J[facility] 04-11-2024 14:32-0500 Systolic blood pressure 138 mm[Hg] Carlos J[facility] 04-11-2024 12:47-0500 Body temperature 98.24 [degF] Carlos J[facility] 04-11-2024 12:47-0500 Heart rate 67 /min Carlos [facility] 04-08-2024 12:00-0500 Diastolic blood pressure 75 mm[Hg] [facility] 04-08-2024 12:00-0500 Heart rate 61 /min [facility] 04-08-2024 12:00-0500 Mean blood pressure 95 mm[Hg] [facility] 04-08-2024 12:00-0500 SaO2% (BldA) [Mass fraction] 94 % [facility] 04-08-2024 12:00-0500 Systolic blood pressure 136 mm[Hg] [facility] 04-08-2024 11:49-0500 Body temperature 97.88 [degF] [facility] 04-08-2024 11:49-0500 Diastolic blood pressure 73 mm[Hg] [facility] 04-08-2024 11:49-0500 Heart rate 56 /min [facility] 04-08-2024 11:49-0500 Respiratory rate 18 /min [facility] 04-08-2024 11:49-0500 SaO2% (BldA) [Mass fraction] 93 % [facility] 04-08-2024 11:49-0500 Systolic blood pressure 156 mm[Hg] [facility] 04-07-2024 16:45-0500 Body temperature 97.7 [degF] [facility] 04-07-2024 16:45-0500 Diastolic blood pressure 69 mm[Hg] [facility] 04-07-2024 16:45-0500 Heart rate 83 /min [facility] 04-07-2024 16:45-0500 Respiratory rate 20 /min [facility] 04-07-2024 16:45-0500 SaO2% (BldA) [Mass fraction] 93 % [facility] 04-07-2024 16:45-0500 Systolic blood pressure 155 mm[Hg] [facility] 04-04-2024 14:00-0500 Heart rate 69 /min [facility] 04-04-2024 14:00-0500 Respiratory rate 15 /min [facility] 04-04-2024 13:30-0500 Diastolic blood pressure 63 mm[Hg] [facility] 04-04-2024 13:30-0500 Heart rate 74 /min [facility] 04-04-2024 13:30-0500 Mean blood pressure 84 mm[Hg] [facility] 04-04-2024 13:30-0500 Respiratory rate 25 /min [facility] 04-04-2024 13:30-0500 SaO2% (BldA) [Mass fraction] 96 % [facility] 04-04-2024 13:30-0500 Systolic blood pressure 125 mm[Hg] [facility] 04-04-2024 12:52-0500 Body temperature 98.24 [degF] [facility] 04-04-2024 12:52-0500 Diastolic blood pressure 77 mm[Hg] [facility] 04-04-2024 12:52-0500 Heart rate 77 /min [facility] 04-04-2024 12:52-0500 Respiratory rate 18 /min [facility] 04-04-2024 12:52-0500 SaO2% (BldA) [Mass fraction] 93 % [facility] 04-04-2024 12:52-0500 Systolic blood pressure 147 mm[Hg] [facility] 03-29-2024 14:22-0500 Body height 157.5 cm Jose Pocos DO Work Phone: [facility] 03-29-2024 14:22-0500 Body mass index (BMI) [Ratio] 21.03 kg/m2 Jose Pocos DO Work Phone: [facility] 03-29-2024 14:22-0500 Body weight 52.16 kg Jose Alos DO Work Phone: [facility] 03-18-2024 16:33-0400 Diastolic blood pressure 69 mm[Hg] [facility] 03-18-2024 16:33-0400 Heart rate 66 /min [facility] 03-18-2024 16:33-0400 Mean blood pressure 86 mm[Hg] [facility] 03-18-2024 16:33-0400 Respiratory rate 18 /min [facility] 03-18-2024 16:33-0400 SaO2% (BldA) [Mass fraction] 97 % [facility] 03-18-2024 16:33-0400 Systolic blood pressure 120 mm[Hg] [facility] 03-18-2024 15:58-0400 Body temperature 98.78 [degF] [facility] 03-18-2024 15:58-0400 Diastolic blood pressure 66 mm[Hg] [facility] 03-18-2024 15:58-0400 Heart rate 76 /min [facility] 03-18-2024 15:58-0400 Respiratory rate 18 /min [facility] 03-18-2024 15:58-0400 SaO2% (BldA) [Mass fraction] 96 % [facility] 03-18-2024 15:58-0400 Systolic blood pressure 103 mm[Hg] [facility] 03-16-2024 11:35-0400 Heart rate 65 /min Buddy Celestino [facility] 03-16-2024 11:35-0400 SaO2% (BldA) [Mass fraction] 93 % Buddy Celestino [facility] 03-16-2024 11:34-0400 Respiratory rate 18 /min Buddy Celestino [facility] 03-16-2024 11:34-0400 Body temperature 98.06 [degF] Buddy Aguilarcker [facility] 03-16-2024 11:31-0400 Diastolic blood pressure 71 mm[Hg] Buddy Celestino [facility] 03-16-2024 11:31-0400 Mean blood pressure 93 mm[Hg] Buddy Aguilarcker [facility] 03-16-2024 11:31-0400 Systolic blood pressure 136 mm[Hg] Buddy Aguilarcker [facility] 03-16-2024 09:05-0400 Hourly Rounding Buddy Celestino [facility] 03-16-2024 09:05-0400 Promise to Return Buddy Celestino [facility] 03-16-2024 08:00-0400 Hourly Rounding Buddy Celestino [facility] 03-16-2024 08:00-0400 Promise to Return Buddy Celestino [facility] 03-16-2024 07:21-0400 Heart rate 63 /min Buddy Celestino [facility] 03-16-2024 07:21-0400 Respiratory rate 18 /min Buddy Celestino [facility] 03-16-2024 07:21-0400 SaO2% (BldA) [Mass fraction] 91 % Buddy Shankser [facility] 03-16-2024 07:20-0400 Body temperature 98.06 [degF] Buddy Shankser [facility] 03-16-2024 07:20-0400 Diastolic blood pressure 69 mm[Hg] Buddy Shankser [facility] 03-16-2024 07:20-0400 Mean blood pressure 87 mm[Hg] Buddy Shankser [facility] 03-16-2024 07:20-0400 Systolic blood pressure 123 mm[Hg] Buddy Shankser [facility] 03-16-2024 07:00-0400 Hourly Rounding Buddy Tirado [facility] 03-16-2024 07:00-0400 Promise to Return Buddy Tirado [facility] 03-16-2024 02:05-0400 Body temperature 97.34 [degF] Buddy Tirado [facility] 03-16-2024 02:05-0400 Diastolic blood pressure 75 mm[Hg] Buddy Tirado [facility] 03-16-2024 02:05-0400 Heart rate 60 /min Buddy Shankser [facility] 03-16-2024 02:05-0400 Mean blood pressure 92 mm[Hg] Buddy Shankser [facility] 03-16-2024 02:05-0400 SaO2% (BldA) [Mass fraction] 95 % Buddy Shankser [facility] 03-16-2024 02:05-0400 Systolic blood pressure 126 mm[Hg] Buddy Tirado [facility] 03-15-2024 19:17-0400 Mean blood pressure 85 mm[Hg] Buddy Tirado [facility] 03-15-2024 15:46-0400 Respiratory rate 18 /min Buddy Tirado [facility] 03-15-2024 15:39-0400 Blood Pressure Location Buddy Tirado [facility] 03-15-2024 08:00-0400 FIO2 28 1 Buddy Tirado [facility] 03-15-2024 08:00-0400 Mean blood pressure 97 mm[Hg] Buddy Tirado [facility] 03-15-2024 03:15-0400 Blood Pressure Location Buddy Tirado [facility] 03-15-2024 03:15-0400 Body temperature 97.16 [degF] Buddy Tirado [facility] 03-15-2024 03:15-0400 Mean blood pressure 87 mm[Hg] Buddy Tirado [facility] 03-15-2024 00:20-0400 Body temperature 97.88 [degF] Buddy Tirado [facility] 03-14-2024 13:20-0400 FIO2 28 1 Buddy Shankser [facility] 03-14-2024 10:36-0400 Body temperature 97.7 [degF] Buddy Shankser [facility] 03-14-2024 10:36-0400 FIO2 28 1 Buddy Shankser [facility] 03-14-2024 10:36-0400 Heart rate 63 /min Buddy Tirado [facility] 03-14-2024 05:12-0400 Heart rate 71 /min Buddy Tirado [facility] 03-14-2024 04:55-0400 Heart rate 80 /min Buddy Tirado [facility] 03-12-2024 15:36-0400 Diastolic blood pressure 74 mm[Hg] [facility] 03-12-2024 15:36-0400 Heart rate 69 /min [facility] 03-12-2024 15:36-0400 Respiratory rate 18 /min [facility] 03-12-2024 15:36-0400 SaO2% (BldA) [Mass fraction] 94 % [facility] 03-12-2024 15:36-0400 Systolic blood pressure 139 mm[Hg] [facility] 03-12-2024 14:10-0400 Diastolic blood pressure 95 mm[Hg] [facility] 03-12-2024 14:10-0400 Heart rate 69 /min [facility] 03-12-2024 14:10-0400 Respiratory rate 18 /min [facility] 03-12-2024 14:10-0400 SaO2% (BldA) [Mass fraction] 94 % [facility] 03-12-2024 14:10-0400 Systolic blood pressure 143 mm[Hg] [facility] 03-12-2024 13:27-0400 Diastolic blood pressure 71 mm[Hg] [facility] 03-12-2024 13:27-0400 Heart rate 68 /min [facility] 03-12-2024 13:27-0400 Respiratory rate 18 /min [facility] 03-12-2024 13:27-0400 SaO2% (BldA) [Mass fraction] 94 % [facility] 03-12-2024 13:27-0400 Systolic blood pressure 158 mm[Hg] [facility] 03-12-2024 12:36-0400 Body temperature 98.06 [degF] [facility] 03-11-2024 11:47-0400 Body temperature 97.88 [degF] [facility] 03-11-2024 11:47-0400 Diastolic blood pressure 70 mm[Hg] [facility] 03-11-2024 11:47-0400 Heart rate 84 /min [facility] 03-11-2024 11:47-0400 Respiratory rate 18 /min [facility] 03-11-2024 11:47-0400 SaO2% (BldA) [Mass fraction] 95 % [facility] 03-11-2024 11:47-0400 Systolic blood pressure 155 mm[Hg] [facility] 03-09-2024 06:23-0400 Body temperature 97.34 [degF] Kaylinn Dokken [facility] 03-09-2024 06:23-0400 Diastolic blood pressure 76 mm[Hg] Kaylinn Dokken [facility] 03-09-2024 06:23-0400 Heart rate 81 /min Kaylinn Dokken [facility] 03-09-2024 06:23-0400 Respiratory rate 16 /min Kaylinn Dokken [facility] 03-09-2024 06:23-0400 SaO2% (BldA) [Mass fraction] 91 % Kaylinn Dokken [facility] 03-09-2024 06:23-0400 Systolic blood pressure 136 mm[Hg] Mati Taylor [facility] 02-24-2024 11:19-0400 Body temperature 98.06 [degF] [facility] 02-24-2024 11:19-0400 Diastolic blood pressure 74 mm[Hg] [facility] 02-24-2024 11:19-0400 Heart rate 71 /min [facility] 02-24-2024 11:19-0400 Respiratory rate 18 /min [facility] 02-24-2024 11:19-0400 SaO2% (BldA) [Mass fraction] 93 % [facility] 02-24-2024 11:19-0400 Systolic blood pressure 142 mm[Hg] [facility] 02-23-2024 18:29-0400 Body temperature 98.06 [degF] [facility] 02-23-2024 18:29-0400 Diastolic blood pressure 66 mm[Hg] [facility] 02-23-2024 18:29-0400 Heart rate 73 /min [facility] 02-23-2024 18:29-0400 Respiratory rate 18 /min [facility] 02-23-2024 18:29-0400 SaO2% (BldA) [Mass fraction] 95 % [facility] 02-23-2024 18:29-0400 Systolic blood pressure 138 mm[Hg] [facility] 02-23-2024 10:27-0400 Body height 157.5 cm Jose Stroud DO Work Phone: [facility] 02-23-2024 10:27-0400 Body mass index (BMI) [Ratio] 21.03 kg/m2 Jose Stroud DO Work Phone: [facility] 02-23-2024 10:27-0400 Body weight 52.16 kg Jose Stroud DO Work Phone: [facility] 02-11-2024 17:21-0400 Diastolic blood pressure 65 mm[Hg] [facility] 02-11-2024 17:21-0400 Heart rate 73 /min [facility] 02-11-2024 17:21-0400 Inhaled oxygen flow rate 2 L/min [facility] 02-11-2024 17:21-0400 Respiratory rate 20 /min [facility] 02-11-2024 17:21-0400 SaO2% (BldA) [Mass fraction] 98 % [facility] 02-11-2024 17:21-0400 Systolic blood pressure 136 mm[Hg] [facility] 02-11-2024 13:19-0400 Body height 154.94 cm [facility] 02-11-2024 13:19-0400 Body weight 67.8 kg [facility] 02-11-2024 13:18-0400 Body temperature 97.8 [degF] [facility] 02-06-2024 10:30-0400 Diastolic blood pressure 61 mm[Hg] Chandan Adhikari [facility] 02-06-2024 10:30-0400 Heart rate 70 /min Chandan Adhikari [facility] 02-06-2024 10:30-0400 Mean blood pressure 81 mm[Hg] Chandan Munoze [facility] 02-06-2024 10:30-0400 Respiratory rate 16 /min Chandan Adhikari [facility] 02-06-2024 10:30-0400 SaO2% (BldA) [Mass fraction] 90 % Chandan Munoze [facility] 02-06-2024 10:30-0400 Systolic blood pressure 121 mm[Hg] Chandan Munoze [facility] 02-06-2024 07:41-0400 Body temperature 98.42 [degF] Chandan Adhikari [facility] 02-06-2024 07:41-0400 Diastolic blood pressure 81 mm[Hg] Chandan Adhikari [facility] 02-06-2024 07:41-0400 Heart rate 73 /min Chandan Adhikari [facility] 02-06-2024 07:41-0400 Respiratory rate 18 /min Chandan Adhikari [facility] 02-06-2024 07:41-0400 SaO2% (BldA) [Mass fraction] 95 % Chandan Adhikari [facility] 02-06-2024 07:41-0400 Systolic blood pressure 132 mm[Hg] Chandan Adhikari [facility] 02-02-2024 09:40-0400 Body height 157.5 cm Jose [employer] Work Phone: [facility] [employer] 02-02-2024 09:40-0400 Body mass index (BMI) [Ratio] 21.03 kg/m2 Jose Socialcamos DO Work Phone: [facility] 02-02-2024 09:40-0400 Body weight 52.16 kg Jose Socialcamos DO Work Phone: [facility] 01-28-2024 18:26-0400 Body temperature 97.88 [degF] [facility] 01-28-2024 18:26-0400 Diastolic blood pressure 68 mm[Hg] [facility] 01-28-2024 18:26-0400 Heart rate 76 /min [facility] 01-28-2024 18:26-0400 Respiratory rate 16 /min [facility] 01-28-2024 18:26-0400 SaO2% (BldA) [[facility] fraction] 96 % [facility] 01-28-2024 18:26-0400 Systolic blood pressure 142 mm[Hg] [facility] 01-12-2024 12:49-0400 Body height 157.5 cm Jose Stroud DO Work Phone: [facility] 01-10-2024 20:55-0400 Body temperature 97.7 [degF] Kaylinn Dokken [facility] 01-10-2024 20:55-0400 Diastolic blood pressure 66 mm[Hg] Kaylinn Dokken [facility] 01-10-2024 20:55-0400 Heart rate 93 /min Kaylinn Dokken [facility] 01-10-2024 20:55-0400 Respiratory rate 16 /min Speedyylinn Dokken [facility] 01-10-2024 20:55-0400 SaO2% (BldA) [Mass fraction] 96 % Speedyylinn Dokken [facility] 01-10-2024 20:55-0400 Systolic blood pressure 157 mm[Hg] Kaylinn Dokken [facility] 01-02-2024 10:58-0400 Blood Pressure Location Amarilis Bordner [facility] 01-02-2024 10:58-0400 Body temperature 99.68 [degF] Amarilis Bordner [facility] 01-02-2024 10:58-0400 Diastolic blood pressure 68 mm[Hg] Amarilis Bordner [facility] 01-02-2024 10:58-0400 Heart rate 76 /min Amarilis Bordner [facility] 01-02-2024 10:58-0400 Respiratory rate 18 /min Amarilis Gold [facility] 01-02-2024 10:58-0400 Systolic blood pressure 148 mm[Hg] Amarilis Mcleaner [facility] 09-12-2023 15:34-0400 Hourly Rounding [facility] 09-12-2023 15:34-0400 Promise to Return [facility] 09-12-2023 14:36-0400 Hourly Rounding [facility] 09-12-2023 14:36-0400 Promise to Return [facility] 09-12-2023 13:15-0400 Hourly Rounding [facility] 09-12-2023 13:13-0400 Promise to Return [facility] 09-12-2023 10:00-0400 Body temperature 98.24 [degF] [facility] 09-12-2023 10:00-0400 Diastolic blood pressure 70 mm[Hg] [facility] 09-12-2023 10:00-0400 Heart rate 59 /min [facility] 09-12-2023 10:00-0400 SaO2% (BldA) [Mass fraction] 95 % [facility] 09-12-2023 10:00-0400 Systolic blood pressure 130 mm[Hg] [facility] 09-12-2023 08:00-0400 Body temperature 97.88 [degF] [facility] 09-12-2023 08:00-0400 Heart rate 52 /min [facility] 09-12-2023 08:00-0400 Systolic blood pressure 126 mm[Hg] [facility] 09-11-2023 19:49-0400 Heart rate 59 /min [facility] 09-11-2023 19:49-0400 SaO2% (BldA) [Mass fraction] 94 % [facility] 09-11-2023 19:45-0400 Body temperature 97.88 [degF] [facility] 09-11-2023 19:44-0400 Diastolic blood pressure 78 mm[Hg] [facility] 09-11-2023 19:44-0400 Mean blood pressure 93 mm[Hg] [facility] 09-11-2023 19:44-0400 Systolic blood pressure 123 mm[Hg] [facility] 09-11-2023 19:00-0400 Blood Pressure Location [facility] 09-11-2023 19:00-0400 Respiratory rate 16 /min [facility] 09-11-2023 17:00-0400 Respiratory rate 17 /min [facility] 09-11-2023 15:59-0400 Body temperature 97.34 [degF] [facility] 09-11-2023 15:59-0400 Mean blood pressure 92 mm[Hg] [facility] 09-11-2023 11:35-0400 Mean blood pressure 96 mm[Hg] [facility] 09-11-2023 07:00-0400 Body temperature 97.7 [degF] [facility] 09-11-2023 07:00-0400 Mean blood pressure 89 mm[Hg] [facility] 09-11-2023 01:13-0400 Mean blood pressure 89 mm[Hg] [facility] 09-09-2023 01:20-0400 Heart rate 66 /min [facility] 09-08-2023 22:00-0400 Heart rate 85 /min [facility] 09-08-2023 15:05-0400 Heart rate 75 /min [facility] 09-07-2023 22:34-0400 Respiratory rate 18 /min [facility] 09-07-2023 22:00-0400 Respiratory rate 20 /min [facility] 09-06-2023 18:38-0400 Body temperature 98.5 [degF] BACTERIOLOGIST PHARMACEUTICAL Bebe Saffle Work Phone: [facility] 09-06-2023 18:38-0400 Diastolic blood pressure 74 mm[Hg] BACTERIOLOGIST PHARMACEUTICAL Bebe Saffle Work Phone: [facility] 09-06-2023 18:38-0400 Heart rate 70 /min BACTERIOLOGIST PHARMACEUTICAL Bebe Saffle Work Phone: [facility] 09-06-2023 18:38-0400 Respiratory rate 18 /min BACTERIOLOGIST PHARMACEUTICAL Bebe Saffle Work Phone: [facility] 09-06-2023 18:38-0400 SaO2% (BldA) [Mass fraction] 94 % BACTERIOLOGIST PHARMACEUTICAL Bebe Saffle Work Phone: [facility] 09-06-2023 18:38-0400 Systolic blood pressure 155 mm[Hg] BACTERIOLOGIST PHARMACEUTICAL Bebe Saffle Work Phone: [facility] 09-06-2023 14:02-0400 Body height 157.48 cm BACTERIOLOGIST PHARMACEUTICAL Bebe Saffle Work Phone: [facility] 09-06-2023 14:02-0400 Body weight 61.8 kg BACTERIOLOGIST PHARMACEUTICAL Bebe Saffle Work Phone: [facility] 09-02-2023 07:30-0400 Body temperature 97.3 [degF] BACTERIOLOGIST PHARMACEUTICAL Bebe Saffle Work Phone: [facility] 09-02-2023 07:30-0400 Diastolic blood pressure 73 mm[Hg] BACTERIOLOGIST PHARMACEUTICAL Bebe Saffle Work Phone: [facility] 09-02-2023 07:30-0400 Heart rate 77 /min BACTERIOLOGIST PHARMACEUTICAL Bebe Saffle Work Phone: [facility] 09-02-2023 07:30-0400 Respiratory rate 16 /min BACTERIOLOGIST PHARMACEUTICAL Bebe Saffle Work Phone: [facility] 09-02-2023 07:30-0400 SaO2% (BldA) [Mass fraction] 94 % BACTERIOLOGIST PHARMACEUTICAL Bebe Saffle Work Phone: [facility] 09-02-2023 07:30-0400 Systolic blood pressure 147 mm[Hg] BACTERIOLOGIST PHARMACEUTICAL Bebe Saffle Work Phone: [facility] 09-01-2023 09:00-0400 Body weight 59 kg BACTERIOLOGIST PHARMACEUTICAL Bebe Saffle Work Phone: [facility] 08-28-2023 14:35-0400 Body height 157.48 cm BACTERIOLOGIST PHARMACEUTICAL Bebe Saffle Work Phone: [facility] 08-27-2023 09:31-0400 Diastolic blood pressure 71 mm[Hg] Johny Willson [facility] 08-27-2023 09:31-0400 Heart rate 71 /min Johny Willson [facility] 08-27-2023 09:31-0400 Mean blood pressure 92 mm[Hg] Johny Willson [facility] 08-27-2023 09:31-0400 Respiratory rate 18 /min Johny Willson [facility] 08-27-2023 09:31-0400 SaO2% (BldA) [Mass fraction] 95 % Johny Willson [facility] 08-27-2023 09:31-0400 Systolic blood pressure 133 mm[Hg] Johny Willson [facility] 08-27-2023 08:04-0400 Body temperature 97.88 [degF] Johny Willson [facility] 08-27-2023 08:04-0400 Diastolic blood pressure 67 mm[Hg] Johny Willson [facility] 08-27-2023 08:04-0400 Heart rate 70 /min Johny Willson [facility] 08-27-2023 08:04-0400 Respiratory rate 18 /min Johny Willson [facility] 08-27-2023 08:04-0400 SaO2% (BldA) [Mass fraction] 97 % Johny Willson [facility] 08-27-2023 08:04-0400 Systolic blood pressure 128 mm[Hg] Johny Willson [facility] 08-22-2023 14:54-0400 Diastolic blood pressure 60 mm[Hg] BACTERIOLOGIST PHARMACEUTICAL Bebe Saffle Work Phone: [facility] 08-22-2023 14:54-0400 Heart rate 60 /min BACTERIOLOGIST PHARMACEUTICAL Bebe Saffle Work Phone: [facility] 08-22-2023 14:54-0400 Respiratory rate 18 /min BACTERIOLOGIST PHARMACEUTICAL Bebe Saffle Work Phone: [facility] 08-22-2023 14:54-0400 SaO2% (BldA) [Mass fraction] 95 % BACTERIOLOGIST PHARMACEUTICAL Bebe Saffle Work Phone: [facility] 08-22-2023 14:54-0400 Systolic blood pressure 128 mm[Hg] BACTERIOLOGIST PHARMACEUTICALMelani Campoverde Saffle Work Phone: [facility] 08-22-2023 11:57-0400 Body height 157.48 cm BACTERIOLOGIST PHARMACEUTICALMelani Campoverde Saffle Work Phone: [facility] 08-22-2023 11:57-0400 Body weight 58.96 kg BACTERIOLOGIST PHARMACEUTICALMelani Mccabee Work Phone: [facility] 08-22-2023 11:54-0400 Body temperature 97.7 [degF] SVITLANA Mccabee Work Phone: [facility] 08-21-2023 15:08-0400 Body temperature 98.24 [degF] Johnybhavani Willson [facility] 08-21-2023 15:08-0400 Diastolic blood pressure 79 mm[Hg] Johny Willson [facility] 08-21-2023 15:08-0400 Heart rate 73 /min Johny [facility] 08-21-2023 15:08-0400 Respiratory rate 18 /min [facility] 08-21-2023 15:08-0400 SaO2% (BldA) [Mass fraction] 96 % [facility] 08-21-2023 15:08-0400 Systolic blood pressure 123 mm[Hg] [facility] 08-14-2023 11:10-0400 Diastolic blood pressure 80 mm[Hg] [facility] 08-14-2023 11:10-0400 Heart rate 60 /min [facility] 08-14-2023 11:10-0400 Mean blood pressure 91 mm[Hg] [facility] 08-14-2023 11:10-0400 Respiratory rate 18 /min [facility] 08-14-2023 11:10-0400 SaO2% (BldA) [Mass fraction] 95 % [facility] 08-14-2023 11:10-0400 Systolic blood pressure 112 mm[Hg] [facility] 08-14-2023 10:28-0400 Diastolic blood pressure 78 mm[Hg] [facility] 08-14-2023 10:28-0400 Heart rate 56 /min [facility] 08-14-2023 10:28-0400 Mean blood pressure 95 mm[Hg] [facility] 08-14-2023 10:28-0400 Respiratory rate 18 /min [facility] 08-14-2023 10:28-0400 SaO2% (BldA) [Mass fraction] 95 % [facility] 08-14-2023 10:28-0400 Systolic blood pressure 129 mm[Hg] [facility] 08-14-2023 09:21-0400 Body temperature 98.24 [degF] [facility] 08-14-2023 09:21-0400 Diastolic blood pressure 86 mm[Hg] [facility] 08-14-2023 09:21-0400 Heart rate 62 /min [facility] 08-14-2023 09:21-0400 Respiratory rate 18 /min [facility] 08-14-2023 09:21-0400 SaO2% (BldA) [Mass fraction] 95 % [facility] 08-14-2023 09:21-0400 Systolic blood pressure 125 mm[Hg] [facility] 08-13-2023 19:42-0400 Body temperature 98.06 [degF] [facility] 08-13-2023 19:42-0400 Diastolic blood pressure 81 mm[Hg] [facility] 08-13-2023 19:42-0400 Heart rate 78 /min [facility] 08-13-2023 19:42-0400 Respiratory rate 18 /min [facility] 08-13-2023 19:42-0400 SaO2% (BldA) [Mass fraction] 94 % [facility] 08-13-2023 19:42-0400 Systolic blood pressure 128 mm[Hg] [facility] 08-12-2023 20:00-0400 Diastolic blood pressure 71 mm[Hg] [facility] 08-12-2023 20:00-0400 Heart rate 65 /min [facility] 08-12-2023 20:00-0400 Mean blood pressure 92 mm[Hg] [facility] 08-12-2023 20:00-0400 SaO2% (BldA) [Mass fraction] 95 % [facility] 08-12-2023 20:00-0400 Systolic blood pressure 135 mm[Hg] [facility] 08-12-2023 19:30-0400 Diastolic blood pressure 74 mm[Hg] [facility] 08-12-2023 19:30-0400 Heart rate 68 /min [facility] 08-12-2023 19:30-0400 Mean blood pressure 93 mm[Hg] [facility] 08-12-2023 19:30-0400 Respiratory rate 16 /min [facility] 08-12-2023 19:30-0400 SaO2% (BldA) [Mass fraction] 92 % [facility] 08-12-2023 19:30-0400 Systolic blood pressure 130 mm[Hg] [facility] 08-12-2023 18:09-0400 Body temperature 98.06 [degF] [facility] 08-12-2023 18:09-0400 Diastolic blood pressure 69 mm[Hg] [facility] 08-12-2023 18:09-0400 Heart rate 63 /min [facility] 08-12-2023 18:09-0400 Respiratory rate 18 /min [facility] 08-12-2023 18:09-0400 SaO2% (BldA) [Mass fraction] 91 % [facility] 08-12-2023 18:09-0400 Systolic blood pressure 125 mm[Hg] [facility] 08-10-2023 00:45-0400 Diastolic blood pressure 68 mm[Hg] [facility] 08-10-2023 00:45-0400 Heart rate 71 /min [facility] 08-10-2023 00:45-0400 Respiratory rate 20 /min [facility] 08-10-2023 00:45-0400 SaO2% (BldA) [Mass fraction] 93 % [facility] 08-10-2023 00:45-0400 Systolic blood pressure 133 mm[Hg] [facility] 08-09-2023 23:17-0400 Body temperature 97.88 [degF] [facility] 08-09-2023 23:17-0400 Diastolic blood pressure 60 mm[Hg] [facility] 08-09-2023 23:17-0400 Heart rate 71 /min [facility] 08-09-2023 23:17-0400 Respiratory rate 20 /min [facility] 08-09-2023 23:17-0400 SaO2% (BldA) [Mass fraction] 93 % [facility] 08-09-2023 23:17-0400 Systolic blood pressure 120 mm[Hg] [facility] 08-07-2023 17:00-0400 Diastolic blood pressure 61 mm[Hg] [facility] 08-07-2023 17:00-0400 Heart rate 67 /min [facility] 08-07-2023 17:00-0400 Mean blood pressure 83 mm[Hg] [facility] 08-07-2023 17:00-0400 SaO2% (BldA) [Mass fraction] 93 % [facility] 08-07-2023 17:00-0400 Systolic blood pressure 126 mm[Hg] [facility] 08-07-2023 16:30-0400 Diastolic blood pressure 55 mm[Hg] [facility] 08-07-2023 16:30-0400 Mean blood pressure 74 mm[Hg] [facility] 08-07-2023 16:30-0400 Respiratory rate 18 /min [facility] 08-07-2023 16:30-0400 Systolic blood pressure 113 mm[Hg] [facility] 08-07-2023 16:00-0400 Diastolic blood pressure 50 mm[Hg] [facility] 08-07-2023 16:00-0400 Mean blood pressure 68 mm[Hg] [facility] 08-07-2023 16:00-0400 Systolic blood pressure 105 mm[Hg] [facility] 08-07-2023 15:30-0400 Heart rate 74 /min [facility] 08-07-2023 15:30-0400 SaO2% (BldA) [Mass fraction] 92 % [facility] 08-07-2023 15:18-0400 Body temperature 98.06 [degF] [facility] 08-07-2023 15:18-0400 Heart rate 77 /min [facility] 07-05-2023 17:30-0500 Diastolic blood pressure 71 mm[Hg] BACTERIOLOGIST PHARMACEUTICAL Bebe Saffle Work Phone: [facility] 07-05-2023 17:30-0500 Heart rate 71 /min BACTERIOLOGIST PHARMACEUTICAL Bebe Saffle Work Phone: [facility] 07-05-2023 17:30-0500 Respiratory rate 16 /min BACTERIOLOGIST PHARMACEUTICAL Bebe Saffle Work Phone: [facility] 07-05-2023 17:30-0500 SaO2% (BldA) [Mass fraction] 95 % BACTERIOLOGIST PHARMACEUTICAL Bebe Saffle Work Phone: [facility] 07-05-2023 17:30-0500 Systolic blood pressure 138 mm[Hg] BACTERIOLOGIST PHARMACEUTICAL Bebe Saffle Work Phone: [facility] 07-05-2023 15:44-0500 Body height 157.48 cm BACTERIOLOGIST PHARMACEUTICAL Bebe Saffle Work Phone: [facility] 07-05-2023 15:44-0500 Body temperature 97.8 [degF] BACTERIOLOGIST PHARMACEUTICAL Bebe Saffle Work Phone: [facility] 07-05-2023 15:44-0500 Body weight 59.87 kg BACTERIOLOGIST PHARMACEUTICAL Bebe Saffle Work Phone: [facility] 05-26-2023 18:53-0500 Body temperature 98.24 [degF] [facility] 05-26-2023 18:53-0500 Diastolic blood pressure 79 mm[Hg] [facility] 05-26-2023 18:53-0500 Heart rate 99 /min [facility] 05-26-2023 18:53-0500 Respiratory rate 18 /min [facility] 05-26-2023 18:53-0500 SaO2% (BldA) [Mass fraction] 93 % [facility] 05-26-2023 18:53-0500 Systolic blood pressure 143 mm[Hg] [facility] 02-01-2023 23:48-0400 Nursing Progress Note Reason Other: pt left via [facility] car. [facility] 02-01-2023 23:13-0400 Diastolic blood pressure 70 mm[Hg] [facility] 02-01-2023 23:13-0400 Heart rate 73 /min [facility] 02-01-2023 23:13-0400 Mean blood pressure 93 mm[Hg] [facility] 02-01-2023 23:13-0400 Nursing Progress Note Reason Other: pt aware she is being transferred to [facility]. up to bathroom [facility] 02-01-2023 23:13-0400 SaO2% (BldA) [Mass fraction] 93 % [facility] 02-01-2023 23:13-0400 Systolic blood pressure 139 mm[Hg] [facility] 02-01-2023 23:12-0400 Diastolic blood pressure 70 mm[Hg] [facility] 02-01-2023 23:12-0400 Heart rate 71 /min [facility] 02-01-2023 23:12-0400 Respiratory rate 16 /min [facility] 02-01-2023 23:12-0400 SaO2% (BldA) [Mass fraction] 93 % [facility] 02-01-2023 23:12-0400 Systolic blood pressure 139 mm[Hg] [facility] 02-01-2023 23:06-0400 Nursing Progress Note Reason Other: report called to journ. pt resting in bed Johnybhavani [facility] 02-01-2023 19:43-0400 Diastolic blood pressure 85 mm[Hg] [facility] 02-01-2023 19:43-0400 Heart rate 68 /min [facility] 02-01-2023 19:43-0400 Mean blood pressure 95 mm[Hg] [facility] 02-01-2023 19:43-0400 SaO2% (BldA) [Mass fraction] 94 % [facility] 02-01-2023 19:43-0400 Systolic blood pressure 115 mm[Hg] [facility] 02-01-2023 19:27-0400 Heart rate 71 /min [facility] 02-01-2023 19:27-0400 Respiratory rate 16 /min [facility] 02-01-2023 15:08-0400 Body temperature 98.42 [degF] [facility] 02-01-2023 15:08-0400 Heart rate 70 /min [facility] 02-01-2023 15:08-0400 Respiratory rate 16 /min [facility] 01-30-2023 13:21-0400 Body weight 51.71 kg Nurse Namrata Work Phone: [facility] 01-30-2023 13:21-0400 Diastolic blood pressure 78 mm[Hg] Nurse Namrata Work Phone: [facility] 01-30-2023 13:21-0400 Heart rate 77 /min Nurse Namrata Work Phone: [facility] 01-30-2023 13:21-0400 Systolic blood pressure 128 mm[Hg] Nurse Namrata Work Phone: [facility] 01-29-2023 14:30-0400 Diastolic blood pressure 55 mm[Hg] Frantz Mooreton BACTERIOLOGIST PHARMACEUTICAL.[employer] Work Phone: [facility] 01-29-2023 14:30-0400 Heart rate 63 /min Frantz Magdy BACTERIOLOGIST PHARMACEUTICAL.[employer] EVENT PL[employer]NER Work Phone: [facility] 01-29-2023 14:30-0400 Systolic blood pressure 132 mm[Hg] Frantz Mooreton BACTERIOLOGIST PHARMACEUTICAL.[employer] EVENT PL[employer]NER Work Phone: [facility] 01-06-2023 17:51-0400 Body temperature 98.24 [degF] [facility] 01-06-2023 17:51-0400 Diastolic blood pressure 68 mm[Hg] [facility] 01-06-2023 17:51-0400 Heart rate 82 /min [facility] 08-14-2023 17:51-0400 Respiratory rate 16 /min [facility] 01-06-2023 17:51-0400 SaO2% (BldA) [Mass fraction] 97 % [facility] 01-06-2023 17:51-0400 Systolic blood pressure 104 mm[Hg] [facility] 01-04-2023 15:01-0400 Diastolic blood pressure 52 mm[Hg] [facility] 01-04-2023 15:01-0400 Heart rate 57 /min [facility] 01-04-2023 15:01-0400 Mean blood pressure 72 mm[Hg] [facility] 01-04-2023 15:01-0400 Respiratory rate 17 /min [facility] 01-04-2023 15:01-0400 SaO2% (BldA) [Mass fraction] 96 % [facility] 01-04-2023 15:01-0400 Systolic blood pressure 112 mm[Hg] [facility] 12-29-2022 14:01-0400 Diastolic blood pressure 65 mm[Hg] [facility] 12-29-2022 14:01-0400 Heart rate 58 /min [facility] 12-29-2022 14:01-0400 Mean blood pressure 83 mm[Hg] [facility] 12-29-2022 14:01-0400 Respiratory rate 18 /min [facility] 12-29-2022 14:01-0400 SaO2% (BldA) [Mass fraction] 94 % [facility] 12-29-2022 14:01-0400 Systolic blood pressure 120 mm[Hg] [facility] 12-29-2022 12:36-0400 Body temperature 99.14 [degF] [facility] 12-29-2022 12:36-0400 Diastolic blood pressure 65 mm[Hg] [facility] 12-29-2022 12:36-0400 Heart rate 61 /min [facility] 12-29-2022 12:36-0400 Respiratory rate 16 /min [facility] 12-29-2022 12:36-0400 SaO2% (BldA) [Mass fraction] 94 % [facility] 12-29-2022 12:36-0400 Systolic blood pressure 125 mm[Hg] [facility] 12-23-2022 15:00-0400 SaO2% (BldA) [Mass fraction] 96 % [facility] 12-23-2022 14:30-0400 Diastolic blood pressure 60 mm[Hg] [facility] 12-23-2022 14:30-0400 Heart rate 62 /min [facility] 12-23-2022 14:30-0400 Mean blood pressure 82 mm[Hg] [facility] 12-23-2022 14:30-0400 Respiratory rate 20 /min [facility] 12-23-2022 14:30-0400 SaO2% (BldA) [Mass fraction] 95 % [facility] 12-23-2022 14:30-0400 Systolic blood pressure 125 mm[Hg] [facility] 12-23-2022 13:31-0400 Body temperature 98.42 [degF] [facility] 12-23-2022 13:31-0400 Diastolic blood pressure 67 mm[Hg] [facility] 12-23-2022 13:31-0400 Heart rate 72 /min [facility] 12-23-2022 13:31-0400 Respiratory rate 20 /min [facility] 12-23-2022 13:31-0400 SaO2% (BldA) [Mass fraction] 93 % [facility] 12-23-2022 13:31-0400 Systolic blood pressure 129 mm[Hg] [facility] 12-23-2022 13:13-0400 Body temperature 98.42 [degF] [facility] 12-23-2022 13:13-0400 Diastolic blood pressure 71 mm[Hg] [facility] 12-23-2022 13:13-0400 Heart rate 78 /min [facility] 12-23-2022 13:13-0400 Respiratory rate 19 /min [facility] 12-23-2022 13:13-0400 Systolic blood pressure 127 mm[Hg] [facility] 06-11-2022 12:30-0500 Body height 157.48 cm Clark Hernandez Other [facility] Other 06-11-2022 12:30-0500 Diastolic blood pressure 70 mm[Hg] Clark Hernandez Other [employer] Other 06-11-2022 12:30-0500 SaO2% (BldA) [Mass fraction] 95 % Clark Hernandez Other [facility] [employer] Other 06-11-2022 12:30-0500 Systolic blood pressure 110 mm[Hg] Clark Reynosoky Other [facility] [employer] Other 06-11-2022 07:30-0500 Body temperature 98 [degF] DO Tomas Garcia Work Phone: [facility] 06-11-2022 07:30-0500 Diastolic blood pressure 66 mm[Hg] DO Tomas Garcia Work Phone: [facility] 06-11-2022 07:30-0500 Heart rate 89 /min DO Tomas Garcia Work Phone: [facility] 06-11-2022 07:30-0500 Respiratory rate 18 /min DO Tomas Garcia Work Phone: [facility] 06-11-2022 07:30-0500 SaO2% (BldA) [Mass fraction] 94 % DO Tomas Garcia Work Phone: [facility] 06-11-2022 07:30-0500 Systolic blood pressure 101 mm[Hg] DO Tomas Garcia Work Phone: [facility] 06-10-2022 18:17-0500 Body height 154.94 cm DO Tomas Garcia Work Phone: [facility] 06-10-2022 09:00-0500 Body weight 55 kg DO Tomas Garcia Work Phone: [facility] 05-25-2022 16:00-0500 Diastolic blood pressure 91 mm[Hg] [facility] 05-25-2022 16:00-0500 Heart rate 79 /min [facility] 05-25-2022 16:00-0500 Mean blood pressure 106 mm[Hg] [facility] 05-25-2022 16:00-0500 SaO2% (BldA) [Mass fraction] 97 % [facility] 05-25-2022 16:00-0500 Systolic blood pressure 137 mm[Hg] [facility] 05-25-2022 15:30-0500 Diastolic blood pressure 78 mm[Hg] [facility] 05-25-2022 15:30-0500 Heart rate 88 /min [facility] 05-25-2022 15:30-0500 Mean blood pressure 101 mm[Hg] [facility] 05-25-2022 15:30-0500 Respiratory rate 21 /min [facility] 05-25-2022 15:30-0500 SaO2% (BldA) [Mass fraction] 95 % [facility] 05-25-2022 15:30-0500 Systolic blood pressure 146 mm[Hg] [facility] 05-25-2022 14:31-0500 Diastolic blood pressure 83 mm[Hg] [facility] 05-25-2022 14:31-0500 Heart rate 95 /min [facility] 05-25-2022 14:31-0500 Mean blood pressure 107 mm[Hg] [facility] 05-25-2022 14:31-0500 Respiratory rate 19 /min [facility] 05-25-2022 14:31-0500 SaO2% (BldA) [Mass fraction] 94 % [facility] 05-25-2022 14:31-0500 Systolic blood pressure 156 mm[Hg] [facility] 05-25-2022 14:01-0500 Heart rate 104 /min [facility] 05-25-2022 13:00-0500 Heart rate 110 /min [facility] 05-25-2022 11:00-0500 Heart rate 87 /min [facility] 05-25-2022 07:00-0500 Body temperature 98.24 [degF] [facility] 05-25-2022 05:00-0500 Body temperature 98.6 [degF] [facility] 05-24-2022 22:00-0500 gluc 91 mg/dL [facility] 05-24-2022 22:00-0500 gluc [facility] 05-03-2022 11:50-0500 Body temperature 97.88 [degF] [facility] 05-03-2022 11:50-0500 Diastolic blood pressure 67 mm[Hg] [facility] 05-03-2022 11:50-0500 Heart rate 100 /min [facility] 05-03-2022 11:50-0500 Respiratory rate 16 /min [facility] 05-03-2022 11:50-0500 SaO2% (BldA) [Mass fraction] 95 % [facility] 05-03-2022 11:50-0500 Systolic blood pressure 124 mm[Hg] [facility] 05-02-2022 21:43-0500 Body temperature 97.52 [degF] Kaylinn [facility] 05-02-2022 21:43-0500 Diastolic blood pressure 81 mm[Hg] [facility] 05-02-2022 21:43-0500 Heart rate 85 /min [facility] 05-02-2022 21:43-0500 Respiratory rate 20 /min Speedyylinn [facility] 05-02-2022 21:43-0500 SaO2% (BldA) [Mass fraction] 100 % [facility] 05-02-2022 21:43-0500 Systolic blood pressure 125 mm[Hg] [facility] 04-25-2022 14:04-0500 Blood Pressure Location Tomas GARCIA [facility] 04-25-2022 14:04-0500 Body temperature 98.06 [degF] Tomas GARCIA [facility] 04-25-2022 14:04-0500 Diastolic blood pressure 60 mm[Hg] Tomas GARCIA [facility] 04-25-2022 14:04-0500 Heart rate 58 /min Tomas GARCIA [facility] 04-25-2022 14:04-0500 SaO2% (BldA) [Mass fraction] 95 % Tomas GARCIA [facility] 04-25-2022 14:04-0500 Systolic blood pressure 126 mm[Hg] Tomas JOSE [facility] 04-19-2022 12:09-0500 Diastolic blood pressure 67 mm[Hg] Hasan [facility] 04-19-2022 12:09-0500 Heart rate 61 /min [facility] 04-19-2022 12:09-0500 Mean blood pressure 85 mm[Hg] [facility] 04-19-2022 12:09-0500 SaO2% (BldA) [Mass fraction] 93 % [facility] 04-19-2022 12:09-0500 Systolic blood pressure 122 mm[Hg] [facility] 04-19-2022 12:00-0500 Body temperature 96.26 [degF] [facility] 04-19-2022 12:00-0500 Hourly Rounding [facility] 04-19-2022 11:00-0500 Hourly Rounding [facility] 04-19-2022 10:00-0500 Hourly Rounding [facility] 04-19-2022 08:48-0500 Blood Pressure Location [facility] 04-19-2022 08:48-0500 Body temperature 98.06 [degF] [facility] 04-19-2022 08:48-0500 BP/Pulse Patient Position [facility] 04-19-2022 08:48-0500 Diastolic blood pressure 60 mm[Hg] [facility] 04-19-2022 08:48-0500 Heart rate 60 /min [facility] 04-19-2022 08:48-0500 Mean blood pressure 75 mm[Hg] [facility] 04-19-2022 08:48-0500 Respiratory rate 18 /min [facility] 04-19-2022 08:48-0500 SaO2% (BldA) [Mass fraction] 92 % [facility] 04-19-2022 08:48-0500 Systolic blood pressure 105 mm[Hg] [facility] 04-18-2022 23:50-0500 Body temperature 97.52 [degF] [facility] 04-18-2022 23:50-0500 Diastolic blood pressure 57 mm[Hg] [facility] 04-18-2022 23:50-0500 Heart rate 54 /min [facility] 04-18-2022 23:50-0500 Mean blood pressure 70 mm[Hg] [facility] 04-18-2022 23:50-0500 SaO2% (BldA) [Mass fraction] 92 % [facility] 04-18-2022 23:50-0500 Systolic blood pressure 96 mm[Hg] [facility] 04-18-2022 23:50-0500 Respiratory rate 17 /min [facility] 04-18-2022 23:00-0500 Blood Pressure Location [facility] 04-18-2022 23:00-0500 Promise to Return [facility] 04-18-2022 22:12-0500 Promise to Return [facility] 04-18-2022 21:00-0500 Promise to Return [facility] 04-18-2022 19:00-0500 Mean blood pressure 71 mm[Hg] [facility] 04-18-2022 19:00-0500 Respiratory rate 14 /min [facility] 04-18-2022 15:55-0500 BP/Pulse Patient Position [facility] 04-18-2022 15:55-0500 Mean blood pressure 72 mm[Hg] [facility] 04-18-2022 00:00-0500 Respiratory rate 16 /min [facility] 04-17-2022 16:15-0500 Heart rate 58 /min [facility] 04-17-2022 15:17-0500 Mean blood pressure 77 mm[Hg] [facility] 04-17-2022 10:18-0500 Heart rate 56 /min [facility] 03-04-2022 13:17-0400 Blood Pressure Location Tatum Orzech [facility] 03-04-2022 13:17-0400 Body temperature 98.06 [degF] Tatum Orzech [facility] 03-04-2022 13:17-0400 Diastolic blood pressure 66 mm[Hg] Tatum Orzech [facility] 03-04-2022 13:17-0400 Heart rate 72 /min Tatum Orzech [facility] 03-04-2022 13:17-0400 SaO2% (BldA) [Mass fraction] 94 % Tatum Orzech [facility] 03-04-2022 13:17-0400 Systolic blood pressure 122 mm[Hg] Tatum Orzech [facility] 02-17-2022 21:30-0400 Diastolic blood pressure 76 mm[Hg] [facility] 02-17-2022 21:30-0400 Heart rate 68 /min [facility] 02-17-2022 21:30-0400 Respiratory rate 18 /min [facility] 02-17-2022 21:30-0400 SaO2% (BldA) [Mass fraction] 95 % [facility] 02-17-2022 21:30-0400 Systolic blood pressure 148 mm[Hg] [facility] 02-17-2022 19:30-0400 Diastolic blood pressure 78 mm[Hg] [facility] 02-17-2022 19:30-0400 Heart rate 69 /min [facility] 02-17-2022 19:30-0400 Hourly Rounding [facility] 02-17-2022 19:30-0400 Nursing Progress Note Reason Other: Pt aware of POC. Resting on cart. [facility] 02-17-2022 19:30-0400 Respiratory rate 18 /min [facility] 02-17-2022 19:30-0400 SaO2% (BldA) [Mass fraction] 94 % [facility] 02-17-2022 19:30-0400 Systolic blood pressure 157 mm[Hg] [facility] 02-17-2022 16:02-0400 Body temperature 98.6 [degF] [facility] 02-17-2022 16:02-0400 Diastolic blood pressure 83 mm[Hg] [facility] 02-17-2022 16:02-0400 Heart rate 77 /min [facility] 02-17-2022 16:02-0400 Respiratory rate 18 /min [facility] 02-17-2022 16:02-0400 SaO2% (BldA) [Mass fraction] 94 % [facility] 02-17-2022 16:02-0400 Systolic blood pressure 158 mm[Hg] [facility] 02-15-2022 15:01-0400 Body temperature 98.24 [degF] [facility] 02-15-2022 15:01-0400 Diastolic blood pressure 83 mm[Hg] [facility] 02-15-2022 15:01-0400 Heart rate 78 /min [facility] 02-15-2022 15:01-0400 Respiratory rate 18 /min [facility] 02-15-2022 15:01-0400 SaO2% (BldA) [Mass fraction] 94 % [facility] 02-15-2022 15:01-0400 Systolic blood pressure 121 mm[Hg] [facility] 02-13-2022 12:20-0400 Diastolic blood pressure 61 mm[Hg] [facility] 02-13-2022 12:20-0400 Heart rate 62 /min [facility] 02-13-2022 12:20-0400 Mean blood pressure 82 mm[Hg] [facility] 02-13-2022 12:20-0400 Respiratory rate 21 /min [facility] 02-13-2022 12:20-0400 SaO2% (BldA) [Mass fraction] 96 % [facility] 02-13-2022 12:20-0400 Systolic blood pressure 123 mm[Hg] [facility] 02-13-2022 11:46-0400 Body temperature 98.6 [degF] [facility] 02-13-2022 11:46-0400 Diastolic blood pressure 56 mm[Hg] [facility] 02-13-2022 11:46-0400 Heart rate 56 /min [facility] 02-13-2022 11:46-0400 Respiratory rate 20 /min [facility] 02-13-2022 11:46-0400 SaO2% (BldA) [Mass fraction] 96 % [facility] 02-13-2022 11:46-0400 Systolic blood pressure 127 mm[Hg] Johny Willson [facility] 02-07-2022 13:57-0400 Diastolic blood pressure 75 mm[Hg] Quynh Raines MD Work Phone: [facility] 02-07-2022 13:57-0400 Heart rate 76 /min Quynh Raines MD Work Phone: [facility] 02-07-2022 13:57-0400 Systolic blood pressure 118 mm[Hg] Quynh Raines MD Work Phone: [facility] 02-07-2022 13:06-0400 Body weight 51.71 kg Quynh Raines MD Work Phone: [facility] 02-05-2022 11:44-0400 Hourly Rounding [facility] 02-05-2022 11:44-0400 Promise to Return [facility] 02-05-2022 10:18-0400 Hourly Rounding [facility] 02-05-2022 10:18-0400 Promise to Return [facility] 02-05-2022 09:15-0400 Hourly Rounding [facility] 02-05-2022 09:15-0400 Promise to Return [facility] 02-05-2022 07:18-0400 Blood Pressure Location [facility] 02-05-2022 07:18-0400 BP/Pulse Patient Position [facility] 02-05-2022 07:18-0400 Diastolic blood pressure 66 mm[Hg] [facility] 02-05-2022 07:18-0400 Heart rate 58 /min [facility] 02-05-2022 07:18-0400 Mean blood pressure 83 mm[Hg] [facility] 02-05-2022 07:18-0400 SaO2% (BldA) [Mass fraction] 94 % [facility] 02-05-2022 07:18-0400 Systolic blood pressure 117 mm[Hg] [facility] 02-05-2022 04:00-0400 Body temperature 97.34 [degF] [facility] 02-05-2022 04:00-0400 Heart rate 70 /min [facility] 02-05-2022 04:00-0400 Mean blood pressure 82 mm[Hg] [facility] 02-05-2022 04:00-0400 Respiratory rate 16 /min [facility] 02-05-2022 04:00-0400 SaO2% (BldA) [Mass fraction] 92 % [facility] 02-05-2022 04:00-0400 Systolic blood pressure 115 mm[Hg] [facility] 02-04-2022 20:00-0400 Diastolic blood pressure 47 mm[Hg] [facility] 02-04-2022 20:00-0400 Systolic blood pressure 118 mm[Hg] [facility] 02-04-2022 19:00-0400 Blood Pressure Location [facility] 02-04-2022 19:00-0400 Body temperature 97.52 [degF] [facility] 02-04-2022 19:00-0400 BP/Pulse Patient Position [facility] 02-04-2022 19:00-0400 Heart rate 62 /min [facility] 02-04-2022 19:00-0400 SaO2% (BldA) [Mass fraction] 91 % [facility] 02-04-2022 16:30-0400 Body temperature 97.7 [degF] [facility] 02-04-2022 16:30-0400 Mean blood pressure 95 mm[Hg] [facility] 02-04-2022 16:30-0400 Respiratory rate 16 /min [facility] 02-04-2022 11:51-0400 Body temperature 96.44 [degF] [facility] 02-04-2022 11:51-0400 Mean blood pressure 91 mm[Hg] [facility] 02-04-2022 07:31-0400 Mean blood pressure 80 mm[Hg] [facility] 02-04-2022 05:45-0400 Mean blood pressure 85 mm[Hg] [facility] 02-04-2022 05:45-0400 Respiratory rate 14 /min [facility] 02-04-2022 00:40-0400 Respiratory rate 17 /min [facility] 02-03-2022 19:00-0400 Respiratory rate 16 /min [facility] 02-03-2022 16:55-0400 Heart rate 55 /min [facility] 02-03-2022 10:00-0400 Heart rate 54 /min [facility] 02-01-2022 07:55-0400 Diastolic blood pressure 74 mm[Hg] Kaylinn [facility] 02-01-2022 07:55-0400 Heart rate 58 /min Kaylinn [facility] 02-01-2022 07:55-0400 Mean blood pressure 96 mm[Hg] Kaylinn [facility]ok[facility] 02-01-2022 07:55-0400 Respiratory rate 20 /min Kaylinn [facility]ok[facility] 02-01-2022 07:55-0400 SaO2% (BldA) [Mass fraction] 96 % Kaylinn [facility]ok[facility] 02-01-2022 07:55-0400 Systolic blood pressure 139 mm[Hg] Kaylinn Dokken [facility] 02-01-2022 06:35-0400 Body temperature 97.7 [degF] Kaylinn Dokken [facility] 02-01-2022 06:35-0400 Diastolic blood pressure 74 mm[Hg] [facility]ok[facility] 02-01-2022 06:35-0400 Heart rate 64 /min Kaylinn [facility]ok[facility] 02-01-2022 06:35-0400 Respiratory rate 20 /min Kaylinn [facility]ok[facility] 02-01-2022 06:35-0400 SaO2% (BldA) [Mass fraction] 98 % Kaylinn Dok[facility] 02-01-2022 06:35-0400 Systolic blood pressure 134 mm[Hg] Kaylinn [facility]ok[facility] 02-01-2022 06:15-0400 Body temperature 96.98 [degF] [facility]linn [facility]ok[facility] 02-01-2022 06:15-0400 Diastolic blood pressure 65 mm[Hg] [facility]ok[facility] 02-01-2022 06:15-0400 Heart rate 69 /min Kaylinn Dokken [facility] 02-01-2022 06:15-0400 Respiratory rate 18 /min Kaylinn [facility]okken [facility] 02-01-2022 06:15-0400 SaO2% (BldA) [Mass fraction] 96 % Kaylinn Dokken [facility] 02-01-2022 06:15-0400 Systolic blood pressure 160 mm[Hg] Kaylinn [facility]okken [facility] 01-31-2022 04:19-0400 Diastolic blood pressure 62 mm[Hg] Kaylinn [facility]ok[facility] 01-31-2022 04:19-0400 Heart rate 60 /min Kayl[facility]ok[facility] 01-31-2022 04:19-0400 Hourly Rounding Kaylinn Dokken [facility] 01-31-2022 04:19-0400 Respiratory rate 18 /min Kaylinn [facility]ok[facility] 01-31-2022 04:19-0400 SaO2% (BldA) [Mass fraction] 92 % Kaylinn Dokken [facility] 01-31-2022 04:19-0400 Systolic blood pressure 136 mm[Hg] Kaylinn Dok[facility] 01-31-2022 03:36-0400 Body temperature 98.06 [degF] Kayl[facility]ok[facility] 01-31-2022 03:36-0400 Diastolic blood pressure 66 mm[Hg] Kaylinn Dokken [facility] 01-31-2022 03:36-0400 Heart rate 67 /min Kaylinn Dokken [facility] 01-31-2022 03:36-0400 Hourly Rounding Kaylinn Dokken [facility] 01-31-2022 03:36-0400 Respiratory rate 18 /min Kaylinn Dokken [facility] 01-31-2022 03:36-0400 SaO2% (BldA) [Mass fraction] 94 % Kaylinn Dokken [facility] 01-31-2022 03:36-0400 Systolic blood pressure 144 mm[Hg] Kaylinn Dokken [facility] 01-30-2022 20:30-0400 Diastolic blood pressure 72 mm[Hg] Kaylinn Dokken [facility] 01-30-2022 20:30-0400 Heart rate 69 /min Kaylinn Dokken [facility] 01-30-2022 20:30-0400 Respiratory rate 21 /min Kaylinn Dokken [facility] 01-30-2022 20:30-0400 SaO2% (BldA) [Mass fraction] 94 % Kaylinn Dokken [facility] 01-30-2022 20:30-0400 Systolic blood pressure 136 mm[Hg] Kaylinn Dokken [facility] 01-30-2022 19:02-0400 Body temperature 97.52 [degF] Kaylinn [facility] 01-30-2022 19:02-0400 Diastolic blood pressure 66 mm[Hg] Julio Cinn [facility] 01-30-2022 19:02-0400 Heart rate 67 /min Julio Cinn [facility] 01-30-2022 19:02-0400 SaO2% (BldA) [Mass fraction] 95 % Speedyylinn Dokken [facility] 01-30-2022 19:02-0400 Systolic blood pressure 138 mm[Hg] Julio Cinn [facility] 01-30-2022 19:00-0400 Hourly Rounding Chelon kken [facility] 01-30-2022 19:00-0400 Promise to Return Mati Rileyen [facility] 01-15-2022 15:40-0400 Blood Pressure Location JHONATAN SIDELL [facility] 01-15-2022 15:40-0400 Body temperature 97.52 [degF] JHONATAN SIDELL [facility] 01-15-2022 15:40-0400 Diastolic blood pressure 70 mm[Hg] JHONATAN SIDELL [facility] 01-15-2022 15:40-0400 Heart rate 70 /min JHONATAN SIDELL [facility] 01-15-2022 15:40-0400 SaO2% (BldA) [Mass fraction] 97 % JHONATAN SIDELL [facility] 01-15-2022 15:40-0400 Systolic blood pressure 116 mm[Hg] JHONATAN APPIAH [facility] 01-14-2022 16:41-0400 Body temperature 98.42 [degF] Chandan Adhikari [facility] 01-14-2022 16:41-0400 Diastolic blood pressure 80 mm[Hg] Chandan [facility]hikari [facility] 01-14-2022 16:41-0400 Heart rate 71 /min Chandan Adhikari [facility] 01-14-2022 16:41-0400 Respiratory rate 18 /min Chandan Adhikari [facility] 01-14-2022 16:41-0400 SaO2% (BldA) [Mass fraction] 96 % Chandan Adhikari [facility] 01-14-2022 16:41-0400 Systolic blood pressure 124 mm[Hg] Chandan Adhikari [facility] 2022 16:04-0400 Body weight 60.33 kg Frantz Mooreton BACTERIOLOGIST PHARMACEUTICAL.[employer]PORATE EVENT PLANNER Work Phone: [facility] 2022 16:04-0400 Diastolic blood pressure 57 mm[Hg] Frantz Mooreton BACTERIOLOGIST PHARMACEUTICAL.[employer]PORATE EVENT PLANNER Work Phone: [facility] 2022 16:04-0400 Heart rate 55 /min Frantz Magdy BACTERIOLOGIST PHARMACEUTICAL.[employer]PORATE EVENT PLANNER Work Phone: [facility] 2022 16:04-0400 Systolic blood pressure 107 mm[Hg] Frantz Magdy BACTERIOLOGIST PHARMACEUTICAL.[employer]PORATE EVENT PLANNER Work Phone: [facility] 12-20-2021 13:54-0400 Body temperature 97.88 [degF] [facility] 12-20-2021 13:54-0400 Diastolic blood pressure 65 mm[Hg] [facility] 12-20-2021 13:54-0400 Heart rate 80 /min [facility] 12-20-2021 13:54-0400 Respiratory rate 18 /min [facility] 12-20-2021 13:54-0400 SaO2% (BldA) [Mass fraction] 94 % [facility] 12-20-2021 13:54-0400 Systolic blood pressure 116 mm[Hg] [facility] 12-17-2021 13:45-0400 Hourly Rounding Zeyad Zachary [facility] 12-17-2021 11:00-0400 Body temperature 98.06 [degF] Zeyad Zachary [facility] 12-17-2021 11:00-0400 Diastolic blood pressure 68 mm[Hg] Zeyad Zachary [facility] 12-17-2021 11:00-0400 Heart rate 59 /min Zeyad Zachary [facility] 12-17-2021 11:00-0400 SaO2% (BldA) [Mass fraction] 94 % Zeyad Zachary [facility] 12-17-2021 11:00-0400 Systolic blood pressure 131 mm[Hg] Zeyad Zachary [facility] 12-17-2021 08:38-0400 Diastolic blood pressure 69 mm[Hg] Zeyad Zachary [facility] 12-17-2021 08:38-0400 Systolic blood pressure 127 mm[Hg] Zeyad Zachary [facility] 12-17-2021 08:37-0400 Hourly Rounding Zeyad Zachary [facility] 12-17-2021 08:00-0400 Promise to Return Zeyad Zachary [facility] 12-17-2021 07:59-0400 Body temperature 97.88 [degF] Zeyad Zachary [facility] 12-17-2021 07:59-0400 Diastolic blood pressure 69 mm[Hg] Zeyad Zachary [facility] 12-17-2021 07:59-0400 Heart rate 65 /min Zeyad Zachary [facility] 12-17-2021 07:59-0400 Mean blood pressure 89 mm[Hg] Zeyad Zachary [facility] 12-17-2021 07:59-0400 SaO2% (BldA) [Mass fraction] 92 % Zeyad Zachary [facility] 12-17-2021 07:59-0400 Systolic blood pressure 127 mm[Hg] Zeyad Zachary [facility] 12-17-2021 07:00-0400 Hourly Rounding Zeyad Zachary [facility] 12-17-2021 07:00-0400 Promise to Return Zeyad Zachary [facility] 12-17-2021 06:42-0400 Promise to Return Zeyad Zachary [facility] 12-17-2021 00:00-0400 Body temperature 98.06 [degF] Zeyad Zachary [facility] 12-17-2021 00:00-0400 Heart rate 60 /min Zeyad Zachary [facility] 12-17-2021 00:00-0400 SaO2% (BldA) [Mass fraction] 92 % Zeyad Zachary [facility] 12-16-2021 15:20-0400 Mean blood pressure 92 mm[Hg] Zeyad Zachary [facility] 12-16-2021 10:38-0400 Blood Pressure Location Zeyad Zachary [facility] 12-16-2021 10:38-0400 Heart rate 74 /min Zeyad Zachary [facility] 12-16-2021 09:30-0400 Mean blood pressure 80 mm[Hg] Zeyad Reddyer [facility] 12-16-2021 09:30-0400 Respiratory rate 18 /min Zeyad Reddyer [facility] 12-16-2021 07:38-0400 Heart rate 61 /min Zeyad Zachary [facility] 12-16-2021 07:38-0400 Respiratory rate 16 /min Zeyadselene Reddyer [facility] 12-15-2021 18:58-0400 Diastolic blood pressure 69 mm[Hg] Carlos Jaxon [facility] 12-15-2021 18:58-0400 Heart rate 66 /min Carlos Jaxon [facility] 12-15-2021 18:58-0400 Mean blood pressure 94 mm[Hg] Carlos Jaxon [facility] 12-15-2021 18:58-0400 Respiratory rate 20 /min Carlos Jaxon [facility] 12-15-2021 18:58-0400 SaO2% (BldA) [Mass fraction] 93 % Carlos Jaxon [facility] 12-15-2021 18:58-0400 Systolic blood pressure 144 mm[Hg] Carlos Jaxon [facility] 12-15-2021 18:00-0400 Diastolic blood pressure 82 mm[Hg] Carlos Jaxon [facility] 12-15-2021 18:00-0400 Heart rate 68 /min Carlos Jaxon [facility] 12-15-2021 18:00-0400 Hourly Rounding Carlos Jaxon [facility] 12-15-2021 18:00-0400 Mean blood pressure 102 mm[Hg] Carlos Jaxon [facility] 12-15-2021 18:00-0400 Promise to Return Carlos Jaxon [facility] 12-15-2021 18:00-0400 Respiratory rate 18 /min Carlos Jaxon [facility] 12-15-2021 18:00-0400 Systolic blood pressure 142 mm[Hg] Carlos Jaxon [facility] 12-15-2021 17:00-0400 Diastolic blood pressure 72 mm[Hg] Carlos Jaxon [facility] 12-15-2021 17:00-0400 Heart rate 70 /min Carlos Jaxon [facility] 12-15-2021 17:00-0400 Mean blood pressure 97 mm[Hg] Carlos Jaxon [facility] 12-15-2021 17:00-0400 SaO2% (BldA) [Mass fraction] 92 % Carlos Jaxon [facility] 12-15-2021 17:00-0400 Systolic blood pressure 146 mm[Hg] Carlos Jaxon [facility] 12-15-2021 16:00-0400 Hourly Rounding Carlos Jaxon [facility] 12-15-2021 16:00-0400 Promise to Return Carlos Jaxon [facility] 12-15-2021 14:25-0400 Body temperature 98.42 [degF] Carlos Jaxon [facility] 12-15-2021 14:25-0400 Heart rate 74 /min Carlos Jaxon [facility] 12-15-2021 14:25-0400 Hourly Rounding Carlos Jaxon [facility] 12-15-2021 14:25-0400 Promise to Return Carlso Coates [facility] 12-15-2021 14:25-0400 Respiratory rate 16 /min Carlos Jaxon [facility] 12-14-2021 08:50-0400 Body temperature 97.7 [degF] Johny Willson [facility] 12-14-2021 08:50-0400 Diastolic blood pressure 71 mm[Hg] Johny Willson [facility] 12-14-2021 08:50-0400 Heart rate 96 /min Johny Willson [facility] 12-14-2021 08:50-0400 Respiratory rate 20 /min Johny Willson [facility] 12-14-2021 08:50-0400 SaO2% (BldA) [Mass fraction] 94 % Johny Willson [facility] 12-14-2021 08:50-0400 Systolic blood pressure 149 mm[Hg] Johny Willson [facility] 12-09-2021 18:00-0400 Diastolic blood pressure 59 mm[Hg] Johny Dueñas [facility] 12-09-2021 18:00-0400 Heart rate 72 /min Johny Spenser [facility] 12-09-2021 18:00-0400 Respiratory rate 18 /min Johny Spenser [facility] 12-09-2021 18:00-0400 SaO2% (BldA) [Mass fraction] 99 % Johny Spenser [facility] 12-09-2021 18:00-0400 Systolic blood pressure 117 mm[Hg] Johny Spenser [facility] 12-09-2021 16:47-0400 Body temperature 97.88 [degF] Johny Spenser [facility] 12-09-2021 16:47-0400 Diastolic blood pressure 72 mm[Hg] Johny Spenser [facility] 12-09-2021 16:47-0400 Heart rate 78 /min Johny Spenser [facility] 12-09-2021 16:47-0400 Respiratory rate 19 /min Johny Spenser [facility] 12-09-2021 16:47-0400 SaO2% (BldA) [Mass fraction] 97 % Johny Spenser [facility] 12-09-2021 16:47-0400 Systolic blood pressure 127 mm[Hg] Johny Spenser [facility] 12-07-2021 11:43-0400 Body weight 60.33 kg Frantz Santana APRN.CORPORATE EVENT PLANNER Work Phone: [facility] 12-07-2021 11:43-0400 Diastolic blood pressure 51 mm[Hg] Frantz Santana APRN.CORPORATE EVENT PLANNER Work Phone: [facility] 12-07-2021 11:43-0400 Heart rate 72 /min Frantz Magdy BACTERIOLOGIST PHARMACEUTICAL.[employer]PORATE EVENT PLANNER Work Phone: [facility] 12-07-2021 11:43-0400 Systolic blood pressure 126 mm[Hg] Frantz Mooreton BACTERIOLOGIST PHARMACEUTICAL.CORPORATE EVENT PLANNER Work Phone: [facility] 12-04-2021 14:09-0400 Body weight 60.33 kg Frantz Mooreton BACTERIOLOGIST PHARMACEUTICAL.CORPORATE EVENT PLANNER Work Phone: [facility] 12-04-2021 14:09-0400 Diastolic blood pressure 54 mm[Hg] Frantz Magdy BACTERIOLOGIST PHARMACEUTICAL.CORPORATE EVENT PLANNER Work Phone: [facility] 12-04-2021 14:09-0400 Heart rate 71 /min Frantz Magdy BACTERIOLOGIST PHARMACEUTICAL.CORPORATE EVENT PLANNER Work Phone: [facility] 12-04-2021 14:09-0400 Systolic blood pressure 133 mm[Hg] Frantz Magdy BACTERIOLOGIST PHARMACEUTICAL.CORPORATE EVENT PLANNER Work Phone: [facility] 11-30-2021 14:26-0400 Body temperature 97.88 [degF] Tatum Orzech [facility] 11-30-2021 14:26-0400 Diastolic blood pressure 60 mm[Hg] Tatum Orzech [facility] 11-30-2021 14:26-0400 Heart rate 72 /min Tatum Orzech [facility] 11-30-2021 14:26-0400 SaO2% (BldA) [Mass fraction] 95 % Tatum Orzech [facility] 11-30-2021 14:26-0400 Systolic blood pressure 122 mm[Hg] Tatum Orzech [facility] 11-23-2021 13:06-0400 Blood Pressure Location Rosalielorraine Lottk [facility] 11-23-2021 13:06-0400 Body temperature 97.52 [degF] Rosalie Parikhonk [facility] 11-23-2021 13:06-0400 Diastolic blood pressure 66 mm[Hg] Rosalie Lottk [facility] 11-23-2021 13:06-0400 Heart rate 76 /min Rosalie Lottk [facility] 11-23-2021 13:06-0400 SaO2% (BldA) [Mass fraction] 91 % Rosalie Bush [facility] 11-23-2021 13:06-0400 Systolic blood pressure 120 mm[Hg] Rosalie Jlonk [facility] 11-21-2021 19:28-0400 Body temperature 98.24 [degF] Carlos Jaxon [facility] 11-21-2021 19:28-0400 Diastolic blood pressure 73 mm[Hg] Carlos Jaxon [facility] 11-21-2021 19:28-0400 Heart rate 81 /min Carlos Jaxon [facility] 11-21-2021 19:28-0400 Respiratory rate 16 /min Carlos Jaxon [facility] 11-21-2021 19:28-0400 SaO2% (BldA) [Mass fraction] 93 % Carlos Coates [facility] 11-21-2021 19:28-0400 Systolic blood pressure 141 mm[Hg] Carlos Coates [facility] 11-17-2021 18:30-0400 Diastolic blood pressure 67 mm[Hg] Chandan Adhikari [facility] 11-17-2021 18:30-0400 Heart rate 53 /min Chandan Adhikari [facility] 11-17-2021 18:30-0400 Mean blood pressure 88 mm[Hg] Chandan Adhikari [facility] 11-17-2021 18:30-0400 Respiratory rate 16 /min Chandan Adhikari [facility] 11-17-2021 18:30-0400 SaO2% (BldA) [Mass fraction] 94 % Chandan Adhikari [facility] 11-17-2021 18:30-0400 Systolic blood pressure 129 mm[Hg] Chandan Adhikari [facility] 11-17-2021 17:20-0400 Body temperature 98.42 [degF] Chandan Adhikari [facility] 11-17-2021 17:20-0400 Diastolic blood pressure 76 mm[Hg] Chandan Adhikari [facility] 11-17-2021 17:20-0400 Heart rate 66 /min Chandan Munoze [facility] 11-17-2021 17:20-0400 Respiratory rate 18 /min Chandan Munoze [facility] 11-17-2021 17:20-0400 SaO2% (BldA) [Mass fraction] 94 % Chandan Adhikari [facility] 11-17-2021 17:20-0400 Systolic blood pressure 128 mm[Hg] Chandan Adhikari [facility] 11-16-2021 15:22-0400 Body temperature 97.7 [degF] Chandan Adhikari [facility] 11-16-2021 15:22-0400 Diastolic blood pressure 70 mm[Hg] Chandan Adhikari [facility] 11-16-2021 15:22-0400 Heart rate 71 /min Chandan Adhikari [facility] 11-16-2021 15:22-0400 Respiratory rate 14 /min Chandan Adhikari [facility] 11-16-2021 15:22-0400 SaO2% (BldA) [Mass fraction] 95 % Chandan Adhikari [facility] 11-16-2021 15:22-0400 Systolic blood pressure 126 mm[Hg] Chandan Adhikari [facility] 11-08-2021 19:13-0400 Diastolic blood pressure 76 mm[Hg] [facility] 11-08-2021 19:13-0400 Heart rate 68 /min [facility] 11-08-2021 19:13-0400 Mean blood pressure 93 mm[Hg] [facility] 11-08-2021 19:13-0400 Respiratory rate 12 /min [facility] 11-08-2021 19:13-0400 SaO2% (BldA) [Mass fraction] 97 % [facility] 11-08-2021 19:13-0400 Systolic blood pressure 128 mm[Hg] [facility] 11-08-2021 19:00-0400 Body temperature 98.6 [degF] [facility] 11-08-2021 18:45-0400 Diastolic blood pressure 84 mm[Hg] [facility] 11-08-2021 18:45-0400 Heart rate 68 /min [facility] 11-08-2021 18:45-0400 Mean blood pressure 97 mm[Hg] [facility] 11-08-2021 18:45-0400 Respiratory rate 14 /min [facility] 11-08-2021 18:45-0400 SaO2% (BldA) [Mass fraction] 98 % [facility] 11-08-2021 18:45-0400 Systolic blood pressure 123 mm[Hg] [facility] 11-08-2021 17:20-0400 gluc 106 mg/dL [facility] 11-08-2021 17:20-0400 gluc [facility] 11-08-2021 17:12-0400 Body temperature 98.24 [degF] [facility] 11-08-2021 17:12-0400 Diastolic blood pressure 81 mm[Hg] [facility] 11-08-2021 17:12-0400 Heart rate 67 /min [facility] 11-08-2021 17:12-0400 Respiratory rate 16 /min [facility] 11-08-2021 17:12-0400 SaO2% (BldA) [Mass fraction] 93 % [facility] 11-08-2021 17:12-0400 Systolic blood pressure 116 mm[Hg] [facility] 11-07-2021 08:52-0400 Blood Pressure Location Rosalie Parikhlillie [facility] 11-07-2021 08:52-0400 Body temperature 96.8 [degF] Rosalie Klonk [facility] 11-07-2021 08:52-0400 Diastolic blood pressure 86 mm[Hg] Rosalie Klonk [facility] 11-07-2021 08:52-0400 Heart rate 74 /min Rosalie Klonk [facility] 11-07-2021 08:52-0400 SaO2% (BldA) [Mass fraction] 96 % Rosalie Klonk [facility] 11-07-2021 08:52-0400 Systolic blood pressure 156 mm[Hg] Rosalie Klonk [facility] 11-06-2021 18:07-0400 Body temperature 98.06 [degF] Johny Willson [facility] 11-06-2021 18:07-0400 Diastolic blood pressure 62 mm[Hg] Johny Demetris [facility] 11-06-2021 18:07-0400 Heart rate 82 /min Johny Demetris [facility] 11-06-2021 18:07-0400 Respiratory rate 20 /min Johny Demetris [facility] 11-06-2021 18:07-0400 SaO2% (BldA) [Mass fraction] 100 % Johny Demetris [facility] 11-06-2021 18:07-0400 Systolic blood pressure 153 mm[Hg] Johny Demetris [facility] 10-30-2021 11:32-0400 Diastolic blood pressure 74 mm[Hg] Upender Gehlot MD Work Phone: [facility] 10-30-2021 11:32-0400 Heart rate 66 /min Alison Ferreira MD Work Phone: [facility] 10-30-2021 11:32-0400 Respiratory rate 16 /min Alison Ferreira MD Work Phone: [facility] 10-30-2021 11:32-0400 SaO2% (BldA) [Mass fraction] 93 % Alison Ferreira MD Work Phone: [facility] 10-30-2021 11:32-0400 Systolic blood pressure 157 mm[Hg] Alison Ferreira MD Work Phone: [facility] 10-27-2021 11:00-0400 Diastolic blood pressure 71 mm[Hg] Johny Willson [facility] 10-27-2021 11:00-0400 Heart rate 64 /min Johny Willson [facility] 10-27-2021 11:00-0400 Mean blood pressure 96 mm[Hg] Johny Willson [facility] 10-27-2021 11:00-0400 Respiratory rate 16 /min Johny Willson [facility] 10-27-2021 11:00-0400 SaO2% (BldA) [Mass fraction] 94 % Johny Willson [facility] 10-27-2021 11:00-0400 Systolic blood pressure 146 mm[Hg] Johny Willson [facility] 10-27-2021 09:49-0400 Body temperature 98.06 [degF] Johny Willson [facility] 10-27-2021 09:49-0400 Diastolic blood pressure 75 mm[Hg] Johny Willson [facility] 10-27-2021 09:49-0400 Heart rate 73 /min Johny Willson [facility] 10-27-2021 09:49-0400 Respiratory rate 18 /min Johny Willson [facility] 10-27-2021 09:49-0400 SaO2% (BldA) [Mass fraction] 93 % Johny Willson [facility] 10-27-2021 09:49-0400 Systolic blood pressure 154 mm[Hg] Johny Willson [facility] 10-23-2021 21:00-0400 Diastolic blood pressure 60 mm[Hg] Chandan Munoze [facility] 10-23-2021 21:00-0400 Heart rate 64 /min Chandan Onofre [facility] 10-23-2021 21:00-0400 Mean blood pressure 79 mm[Hg] Chandan Onofre [facility] 10-23-2021 21:00-0400 Systolic blood pressure 116 mm[Hg] Chandan Onofre [facility] 10-23-2021 20:00-0400 Diastolic blood pressure 76 mm[Hg] Chandan Onofre [facility] 10-23-2021 20:00-0400 Heart rate 65 /min Chandan Onofre [facility] 10-23-2021 20:00-0400 Mean blood pressure 92 mm[Hg] Chandan Onofre [facility] 10-23-2021 20:00-0400 SaO2% (BldA) [Mass fraction] 93 % Chandan Onofre [facility] 10-23-2021 20:00-0400 Systolic blood pressure 125 mm[Hg] Chandan Onofre [facility] 10-23-2021 19:13-0400 gluc 111 mg/dL Chandan Adhikari [facility] 10-23-2021 19:13-0400 gluc Chandan Adhikari [facility] 10-23-2021 19:05-0400 Body temperature 98.6 [degF] Chandan Adhikari [facility] 10-23-2021 19:05-0400 Diastolic blood pressure 70 mm[Hg] Chandan Adhikari [facility] 10-23-2021 19:05-0400 Heart rate 69 /min Chandan Adhikari [facility] 10-23-2021 19:05-0400 Respiratory rate 18 /min Chandan Adhikari [facility] 10-23-2021 19:05-0400 SaO2% (BldA) [Mass fraction] 91 % Chandan Adhikari [facility] 10-23-2021 19:05-0400 Systolic blood pressure 138 mm[Hg] Chandan Adhikari [facility] 10-23-2021 02:03-0400 Diastolic blood pressure 64 mm[Hg] Speedyylinn Dokken [facility] 10-23-2021 02:03-0400 Heart rate 66 /min Kaylinn Dokken [facility] 10-23-2021 02:03-0400 Mean blood pressure 82 mm[Hg] Kaylinn Dokken [facility] 10-23-2021 02:03-0400 Respiratory rate 16 /min Kaylinn Dokken [facility] 10-23-2021 02:03-0400 SaO2% (BldA) [Mass fraction] 92 % Kaylinn Dokken [facility] 10-23-2021 02:03-0400 Systolic blood pressure 118 mm[Hg] Kaylinn Dokken [facility] 10-23-2021 01:00-0400 Diastolic blood pressure 63 mm[Hg] Kaylinn Dokken [facility] 10-23-2021 01:00-0400 Heart rate 60 /min Kaylinn Dokken [facility] 10-23-2021 01:00-0400 Mean blood pressure 80 mm[Hg] Kaylinn Dokken [facility] 10-23-2021 01:00-0400 Respiratory rate 16 /min Kaylinn Dokken [facility] 10-23-2021 01:00-0400 SaO2% (BldA) [Mass fraction] 95 % Kaylinn Dokken [facility] 10-23-2021 01:00-0400 Systolic blood pressure 114 mm[Hg] Kaylinn Dokken [facility] 10-23-2021 00:00-0400 Heart rate 67 /min Kaylinn Dokken [facility] 10-23-2021 00:00-0400 SaO2% (BldA) [Mass fraction] 92 % Kaylinn Dokken [facility] 10-22-2021 23:49-0400 Body temperature 98.78 [degF] Kaylinn Dokken [facility] 10-22-2021 23:49-0400 Diastolic blood pressure 67 mm[Hg] Mati Taylor [facility] 10-22-2021 23:49-0400 Heart rate 72 /min Mati Dokarmenen [facility] 10-22-2021 23:49-0400 Systolic blood pressure 125 mm[Hg] Mati Rileyen [facility] 10-20-2021 08:27-0400 Hourly Rounding Chandan Adhikari [facility] 10-20-2021 08:20-0400 Diastolic blood pressure 76 mm[Hg] Chandan Onofre [facility] 10-20-2021 08:20-0400 Heart rate 90 /min Chandan Onofre [facility] 10-20-2021 08:20-0400 Respiratory rate 16 /min Chandan Onofre [facility] 10-20-2021 08:20-0400 SaO2% (BldA) [Mass fraction] 97 % Chandan Onofre [facility] 10-20-2021 08:20-0400 Systolic blood pressure 134 mm[Hg] Chandan Onofre [facility] 10-20-2021 07:24-0400 Diastolic blood pressure 74 mm[Hg] Chandan Onofre [facility] 10-20-2021 07:24-0400 Heart rate 88 /min Chandan Onofre [facility] 10-20-2021 07:24-0400 Respiratory rate 16 /min Chandan Onofre [facility] 10-20-2021 07:24-0400 SaO2% (BldA) [Mass fraction] 98 % Chandan Onofre [facility] 10-20-2021 07:24-0400 Systolic blood pressure 136 mm[Hg] Chandan Adhikari [facility] 10-14-2021 11:33-0400 Diastolic blood pressure 47 mm[Hg] Johny Spenser [facility] 10-14-2021 11:33-0400 Mean blood pressure 67 mm[Hg] Johny Spenser [facility] 10-14-2021 11:33-0400 Systolic blood pressure 106 mm[Hg] Johny Spenser [facility] 10-14-2021 11:00-0400 Heart rate 54 /min Johny Spenser [facility] 10-14-2021 11:00-0400 SaO2% (BldA) [Mass fraction] 94 % Johny Spenser [facility] 10-14-2021 10:26-0400 Body temperature 98.42 [degF] Johny Spenser [facility] 10-14-2021 10:26-0400 Diastolic blood pressure 59 mm[Hg] Johny Spenser [facility] 10-14-2021 10:26-0400 Heart rate 59 /min Johny Spenser [facility] 10-14-2021 10:26-0400 Respiratory rate 16 /min Johny Spenser [facility] 10-14-2021 10:26-0400 SaO2% (BldA) [Mass fraction] 93 % Johny Spenser [facility] 10-14-2021 10:26-0400 Systolic blood pressure 123 mm[Hg] Johny Spenser [facility] 10-12-2021 21:35-0400 Body temperature 98.06 [degF] Carlos Jaxon [facility] 10-12-2021 21:35-0400 Diastolic blood pressure 60 mm[Hg] Carlos Jaxon [facility] 10-12-2021 21:35-0400 Heart rate 70 /min Carlos Jaxon [facility] 10-12-2021 21:35-0400 Mean blood pressure 83 mm[Hg] Carlos Jaxon [facility] 10-12-2021 21:35-0400 Respiratory rate 18 /min Carlos Jaxon [facility] 10-12-2021 21:35-0400 SaO2% (BldA) [Mass fraction] 92 % Carlos Jaxon [facility] 10-12-2021 21:35-0400 Systolic blood pressure 130 mm[Hg] Carlos Jaxon [facility] 10-12-2021 20:48-0400 Body temperature 98.06 [degF] Carlos Jaxon [facility] 10-12-2021 20:48-0400 Diastolic blood pressure 80 mm[Hg] Carlos Jaxon [facility] 10-12-2021 20:48-0400 Heart rate 75 /min Carlos Jaxon [facility] 10-12-2021 20:48-0400 Mean blood pressure 107 mm[Hg] Carlos Jaxon [facility] 10-12-2021 20:48-0400 Respiratory rate 20 /min Carlos Jaxon [facility] 10-12-2021 20:48-0400 SaO2% (BldA) [Mass fraction] 93 % Carlos Jaxon [facility] 10-12-2021 20:48-0400 Systolic blood pressure 160 mm[Hg] Carlos Coates [facility] 10-04-2021 19:12-0400 Body height 154.94 cm DO Tomas Garcia Work Phone: [facility] 10-04-2021 19:12-0400 Body mass index (BMI) [Ratio] 26.7 kg/m2 DO Tomas Garcia Work Phone: [facility] 10-04-2021 19:12-0400 Body temperature 97.8 [degF] DO Tomas Garcia Work Phone: [facility] 10-04-2021 19:12-0400 Body weight 64.2 kg DO Tomas Garcia Work Phone: [facility] 10-04-2021 19:12-0400 Diastolic blood pressure 63 mm[Hg] DO Tomas Jose Work Phone: [facility] 10-04-2021 19:12-0400 Heart rate 68 /min DO Tomas Garcia Work Phone: [facility] 10-04-2021 19:12-0400 Respiratory rate 18 /min DO Tomas Garcia Work Phone: [facility] 10-04-2021 19:12-0400 SaO2% (BldA) [Mass fraction] 96 % DO Tomas Jose Work Phone: [facility] 10-04-2021 19:12-0400 Systolic blood pressure 150 mm[Hg] DO Tomas Garcia Work Phone: [facility] 10-03-2021 23:52-0400 Respiratory rate 16 /min Mati Taylor [facility] 10-03-2021 21:53-0400 Body temperature 97.7 [degF] Mati Taylor [facility] 10-03-2021 21:53-0400 Diastolic blood pressure 68 mm[Hg] Speedyylinn Dokken [facility] 10-03-2021 21:53-0400 Heart rate 68 /min Julio Cinn Dokken [facility] 10-03-2021 21:53-0400 Respiratory rate 18 /min Chelon Dokken [facility] 10-03-2021 21:53-0400 SaO2% (BldA) [Mass fraction] 94 % Chelon Dokken [facility] 10-03-2021 21:53-0400 Systolic blood pressure 125 mm[Hg] Julio Cinn Dokken [facility] 10-01-2021 19:00-0400 Diastolic blood pressure 75 mm[Hg] Chandan Adhikari [facility] 10-01-2021 19:00-0400 Heart rate 65 /min Chandan Adhikari [facility] 10-01-2021 19:00-0400 Hourly Rounding Chandan Adhikari [facility] 10-01-2021 19:00-0400 Promise to Return Chandan Adhikari [facility] 10-01-2021 19:00-0400 SaO2% (BldA) [Mass fraction] 95 % Chandan Onofre [facility] 10-01-2021 19:00-0400 Systolic blood pressure 118 mm[Hg] Chandan Onofre [facility] 10-01-2021 18:12-0400 Body temperature 98.42 [degF] Chandan Onofre [facility] 10-01-2021 18:12-0400 Diastolic blood pressure 82 mm[Hg] Chandan Adhikari [facility] 10-01-2021 18:12-0400 Heart rate 68 /min Chandan Adhikari [facility] 10-01-2021 18:12-0400 Respiratory rate 16 /min Chandan Adhikari [facility] 10-01-2021 18:12-0400 SaO2% (BldA) [Mass fraction] 92 % Chandan Adhikari [facility] 10-01-2021 18:12-0400 Systolic blood pressure 119 mm[Hg] Chandan Adhikari [facility] 09-30-2021 22:00-0400 Diastolic blood pressure 68 mm[Hg] [facility] 09-30-2021 22:00-0400 Heart rate 72 /min [facility] 09-30-2021 22:00-0400 Mean blood pressure 86 mm[Hg] [facility] 09-30-2021 22:00-0400 SaO2% (BldA) [Mass fraction] 96 % [facility] 09-30-2021 22:00-0400 Systolic blood pressure 121 mm[Hg] [facility] 09-30-2021 21:06-0400 Body temperature 97.52 [degF] [facility] 09-30-2021 21:06-0400 Diastolic blood pressure 65 mm[Hg] [facility] 09-30-2021 21:06-0400 Heart rate 75 /min [facility] 09-30-2021 21:06-0400 Respiratory rate 16 /min [facility] 09-30-2021 21:06-0400 SaO2% (BldA) [Mass fraction] 95 % [facility] 09-30-2021 21:06-0400 Systolic blood pressure 120 mm[Hg] Didier [facility] 09-17-2021 11:30-0400 Diastolic blood pressure 84 mm[Hg] Chandan Adhikari [facility] 09-17-2021 11:30-0400 Heart rate 84 /min Chandan Onofre [facility] 09-17-2021 11:30-0400 Respiratory rate 16 /min Chandan Munoze [facility] 09-17-2021 11:30-0400 SaO2% (BldA) [Mass fraction] 98 % Chandan Onofre [facility] 09-17-2021 11:30-0400 Systolic blood pressure 125 mm[Hg] Chandan Onofre [facility] 09-17-2021 09:31-0400 Body temperature 97.7 [degF] Chandan Onofre [facility] 09-17-2021 09:31-0400 Diastolic blood pressure 81 mm[Hg] Chandan Munoze [facility] 09-17-2021 09:31-0400 Heart rate 78 /min Chandan Munoze [facility] 09-17-2021 09:31-0400 Respiratory rate 16 /min Chandan Munoze [facility] 09-17-2021 09:31-0400 SaO2% (BldA) [Mass fraction] 96 % Chandan Onofre [facility] 09-17-2021 09:31-0400 Systolic blood pressure 127 mm[Hg] Chandan Onofre [facility] 09-13-2021 11:11-0400 Blood Pressure Location JHONATAN BIJAL [facility] 09-13-2021 11:11-0400 Body temperature 97.7 [degF] JHONATAN SIDELL [facility] 09-13-2021 11:11-0400 Diastolic blood pressure 78 mm[Hg] JHONATAN SIDELL [facility] 09-13-2021 11:11-0400 Systolic blood pressure 138 mm[Hg] JHONATAN SIDELL [facility] 09-13-2021 10:54-0400 Blood Pressure Location JHONATAN SIDELL [facility] 09-08-2021 17:57-0400 Diastolic blood pressure 65 mm[Hg] DO Tomas Jose Work Phone: [facility] 09-08-2021 17:57-0400 Heart rate 81 /min DO Tomas Jose Work Phone: [facility] 09-08-2021 17:57-0400 Respiratory rate 18 /min DO Tomas Jose Work Phone: [facility] 09-08-2021 17:57-0400 SaO2% (BldA) [Mass fraction] 92 % DO Tomas Jose Work Phone: [facility] 09-08-2021 17:57-0400 Systolic blood pressure 135 mm[Hg] DO Tomas Jose Work Phone: [facility] 09-08-2021 15:54-0400 Body height 157.48 cm DO Tomas Jose Work Phone: [facility] 09-08-2021 15:54-0400 Body mass index (BMI) [Ratio] 25.6 kg/m2 DO Tomas Jose Work Phone: [facility] 09-08-2021 15:54-0400 Body temperature 98.6 [degF] DO Tomas Garcia Work Phone: [facility] 09-08-2021 15:54-0400 Body weight 63.5 kg DO Tomas Garcia Work Phone: [facility] 09-08-2021 09:50-0400 Diastolic blood pressure 85 mm[Hg] Chandan Adhikari [facility] 09-08-2021 09:50-0400 Heart rate 65 /min Chandan Adhikari [facility] 09-08-2021 09:50-0400 Mean blood pressure 102 mm[Hg] Chandan Adhikari [facility] 09-08-2021 09:50-0400 Respiratory rate 15 /min Chandan Adhikari [facility] 09-08-2021 09:50-0400 SaO2% (BldA) [Mass fraction] 92 % Chandan Adhikari [facility] 09-08-2021 09:50-0400 Systolic blood pressure 135 mm[Hg] Chandan Adhikari [facility] 09-08-2021 08:39-0400 Body temperature 97.88 [degF] Chandan Adhikari [facility] 09-08-2021 08:39-0400 Diastolic blood pressure 77 mm[Hg] Chandan Munoze [facility] 09-08-2021 08:39-0400 Heart rate 79 /min Chandan Munoze [facility] 09-08-2021 08:39-0400 Respiratory rate 15 /min Chandan Adhikari [facility] 09-08-2021 08:39-0400 SaO2% (BldA) [Mass fraction] 94 % Chandan Adhikari [facility] 09-08-2021 08:39-0400 Systolic blood pressure 141 mm[Hg] Chandan Adhikari [facility] 09-08-2021 05:09-0400 Body temperature 96.98 [degF] Santiago Len [facility] 09-08-2021 05:09-0400 Diastolic blood pressure 88 mm[Hg] Santiago Len [facility] 09-08-2021 05:09-0400 Heart rate 86 /min Santiago Len [facility] 09-08-2021 05:09-0400 Respiratory rate 16 /min Santiago Len [facility] 09-08-2021 05:09-0400 SaO2% (BldA) [Mass fraction] 94 % Santiago Len [facility] 09-08-2021 05:09-0400 Systolic blood pressure 140 mm[Hg] Santiago Len [facility] 09-07-2021 22:35-0400 Diastolic blood pressure 74 mm[Hg] Santiago Len [facility] 09-07-2021 22:35-0400 Heart rate 75 /min Santiago Len [facility] 09-07-2021 22:35-0400 Mean blood pressure 92 mm[Hg] Santiago Len [facility] 09-07-2021 22:35-0400 Respiratory rate 15 /min Santiago Len [facility] 09-07-2021 22:35-0400 SaO2% (BldA) [Mass fraction] 90 % Santiago Len [facility] 09-07-2021 22:35-0400 Systolic blood pressure 129 mm[Hg] Santiago Len [facility] 09-07-2021 21:36-0400 Body temperature 97.7 [degF] Santiago Len [facility] 09-07-2021 21:36-0400 Diastolic blood pressure 65 mm[Hg] Santiago Len [facility] 09-07-2021 21:36-0400 Heart rate 78 /min Santiago Len [facility] 09-07-2021 21:36-0400 Respiratory rate 18 /min Santiago Len [facility] 09-07-2021 21:36-0400 SaO2% (BldA) [Mass fraction] 92 % Santiago Len [facility] 09-07-2021 21:36-0400 Systolic blood pressure 130 mm[Hg] Santiago Len [facility] 09-07-2021 07:55-0400 Diastolic blood pressure 62 mm[Hg] Carlos Jaxon [facility] 09-07-2021 07:55-0400 Heart rate 69 /min Carlos Jaxon [facility] 09-07-2021 07:55-0400 Mean blood pressure 85 mm[Hg] Carlos Jaxon [facility] 09-07-2021 07:55-0400 Respiratory rate 18 /min Carlos Jaxon [facility] 09-07-2021 07:55-0400 SaO2% (BldA) [Mass fraction] 95 % Carlos Jaxon [facility] 09-07-2021 07:55-0400 Systolic blood pressure 131 mm[Hg] Carlos Jaxon [facility] 09-07-2021 07:07-0400 Hourly Rounding Carlos Jaxon [facility] 09-07-2021 07:07-0400 Promise to Return Carlos Jaxon [facility] 09-07-2021 07:04-0400 Diastolic blood pressure 74 mm[Hg] Carlos Jaxon [facility] 09-07-2021 07:04-0400 Heart rate 68 /min Carlos Jaxon [facility] 09-07-2021 07:04-0400 Mean blood pressure 92 mm[Hg] Carlos Jaxon [facility] 09-07-2021 07:04-0400 Respiratory rate 18 /min Carlos Jaxon [facility] 09-07-2021 07:04-0400 SaO2% (BldA) [Mass fraction] 95 % Carlos Jaxon [facility] 09-07-2021 07:04-0400 Systolic blood pressure 129 mm[Hg] Carlos Jaxon [facility] 09-07-2021 06:15-0400 Promise to Return Carlos Jaxon [facility] 09-07-2021 05:44-0400 Body temperature 98.6 [degF] Carlos Jaxon [facility] 09-07-2021 05:44-0400 Diastolic blood pressure 85 mm[Hg] Carlos Jaxon [facility] 09-07-2021 05:44-0400 Heart rate 71 /min Carlos Jaxon [facility] 09-07-2021 05:44-0400 Respiratory rate 16 /min Carlos Coates [facility] 09-07-2021 05:44-0400 SaO2% (BldA) [Mass fraction] 98 % Carlos Coates [facility] 09-07-2021 05:44-0400 Systolic blood pressure 148 mm[Hg] Carlos Coates [facility] 09-06-2021 11:49-0400 Blood Pressure Location Tomas GARCIA [facility] 09-06-2021 11:49-0400 Body temperature 97.52 [degF] Tomas GARCIA [facility] 09-06-2021 11:49-0400 Diastolic blood pressure 64 mm[Hg] Tomas GARCIA [facility] 09-06-2021 11:49-0400 Heart rate 92 /min Tomas GARCIA [facility] 09-06-2021 11:49-0400 SaO2% (BldA) [Mass fraction] 95 % Tomas GARCIA [facility] 09-06-2021 11:49-0400 Systolic blood pressure 158 mm[Hg] Tomas GARCIA [facility] 08-08-2021 00:02-0400 Diastolic blood pressure 65 mm[Hg] DO Tomas Garcia Work Phone: [facility] 08-08-2021 00:02-0400 Heart rate 73 /min DO Tomas Garcia Work Phone: [facility] 08-08-2021 00:02-0400 Inhaled oxygen flow rate 2 L/min DO Tomas Garcia Work Phone: [facility] 08-08-2021 00:02-0400 Respiratory rate 24 /min DO Tomas Garcia Work Phone: [facility] 08-08-2021 00:02-0400 SaO2% (BldA) [Mass fraction] 93 % DO Tomas Garcia Work Phone: [facility] 08-08-2021 00:02-0400 Systolic blood pressure 137 mm[Hg] DO Tomas Garcia Work Phone: [facility] 08-07-2021 22:00-0400 Body height 157.48 cm DO Tomas Garcia Work Phone: [facility] 08-07-2021 22:00-0400 Body mass index (BMI) [Ratio] 22.8 kg/m2 DO Tomas Garcia Work Phone: [facility] 08-07-2021 22:00-0400 Body temperature 97.6 [degF] DO Tomas Garcia Work Phone: [facility] 08-07-2021 22:00-0400 Body weight 56.69 kg DO Tomas Garcia Work Phone: [facility] 07-27-2021 13:46-0500 Body height 154.94 cm DO Tomas Garcia Work Phone: [facility] 07-27-2021 13:46-0500 Body mass index (BMI) [Ratio] 26.5 kg/m2 DO Tomas Garcia Work Phone: [facility] 07-27-2021 13:46-0500 Body temperature 98.5 [degF] DO Tomas Garcia Work Phone: [facility] 07-27-2021 13:46-0500 Body weight 63.7 kg DO Tomas Garcia Work Phone: [facility] 07-27-2021 13:46-0500 Diastolic blood pressure 60 mm[Hg] DO Tomas Garcia Work Phone: [facility] 07-27-2021 13:46-0500 Heart rate 94 /min DO Tomas Jose Work Phone: [facility] 07-27-2021 13:46-0500 Respiratory rate 18 /min DO Tomas Garcia Work Phone: [facility] 07-27-2021 13:46-0500 SaO2% (BldA) [Mass fraction] 92 % DO Tomas Garcia Work Phone: [facility] 07-27-2021 13:46-0500 Systolic blood pressure 112 mm[Hg] DO Tomas Garcia Work Phone: [facility] 07-22-2021 15:37-0500 Body height 157.48 cm DO Tomas Garcia Work Phone: [facility] 07-22-2021 15:37-0500 Body mass index (BMI) [Ratio] 25.7 kg/m2 DO Tomas Garcia Work Phone: [facility] 07-22-2021 15:37-0500 Body weight 63.95 kg DO Tomas Garcia Work Phone: [facility] 07-22-2021 15:36-0500 Body temperature 98.1 [degF] DO Tomas Garcia Work Phone: [facility] 07-22-2021 15:36-0500 Diastolic blood pressure 63 mm[Hg] DO Tomas Garcia Work Phone: [facility] 07-22-2021 15:36-0500 Heart rate 78 /min DO Tomas Garcia Work Phone: [facility] 07-22-2021 15:36-0500 Respiratory rate 20 /min DO Tomas Garcia Work Phone: [facility] 07-22-2021 15:36-0500 SaO2% (BldA) [Mass fraction] 91 % DO Tomas Garcia Work Phone: [facility] 07-22-2021 15:36-0500 Systolic blood pressure 141 mm[Hg] DO Tomas Garcia Work Phone: [facility] 07-19-2021 17:59-0500 Body temperature 97.3 [degF] DO Tomas Garcia Work Phone: [facility] 07-19-2021 17:59-0500 Diastolic blood pressure 76 mm[Hg] DO Tomas Garcia Work Phone: [facility] 07-19-2021 17:59-0500 Heart rate 66 /min DO Tomas Garcia Work Phone: [facility] 07-19-2021 17:59-0500 Respiratory rate 16 /min DO Tomas Garcia Work Phone: [facility] 07-19-2021 17:59-0500 SaO2% (BldA) [Mass fraction] 93 % DO Tomas Garcia Work Phone: [facility] 07-19-2021 17:59-0500 Systolic blood pressure 150 mm[Hg] DO Tomas Garcia Work Phone: [facility] 07-19-2021 17:06-0500 Body height 154.94 cm DO Tomas Garcia Work Phone: [facility] 07-19-2021 17:06-0500 Body mass index (BMI) [Ratio] 26.6 kg/m2 DO Tomas Garcia Work Phone: [facility] 07-19-2021 17:06-0500 Body weight 63.95 kg DO Tomas Garcia Work Phone: [facility] 12-29-2020 15:43-0400 Diastolic blood pressure 35 mm[Hg] Alison Ferreira MD Work Phone: [facility] 12-29-2020 15:43-0400 Heart rate 87 /min Alison Ferreira MD Work Phone: [facility] 12-29-2020 15:43-0400 Respiratory rate 16 /min Alison Ferreira MD Work Phone: [facility] 12-29-2020 15:43-0400 SaO2% (BldA) [Mass fraction] 95 % Alison Ferreira MD Work Phone: [facility] 12-29-2020 15:43-0400 Systolic blood pressure 105 mm[Hg] Alison Ferreira MD Work Phone: [facility] Encounters Encounter Date Encounter Type Care Provider Facility Start: 07-28-2024 End: 07-28-2024 Emergency department [facility] visit [facility] Start: 07-25-2024 End: 07-25-2024 Emergency department patient visit [facility] Start: 07-24-2024 End: 07-24-2024 Emergency department patient visit Chandan Adhikari [facility] Start: 07-20-2024 End: 07-20-2024 Emergency department patient visit Johny Willson [facility] Start: 07-12-2024 End: 07-12-2024 Emergency department patient visit Chandan Adhikari [facility] Start: 07-06-2024 ambulatory AZUL GORMAN Facil ity:[facility] [place] Start: 07-06-2024 End: 07-06-2024 ambulatory AZULJULIETA GORMAN Facility:[facility] [place] Start: 07-06-2024 End: 07-06-2024 Patient encounter procedure Luz Elena Gunn [facility] Start: 07-04-2024 End: 07-04-2024 Emergency department patient visit [facility] Start: 06-20-2024 End: 06-20-2024 Emergency department patient visit Johny Willson [facility] Start: 06-17-2024 End: 06-17-2024 Lab Drop off Adrian Kinsey [facility] Start: 06-17-2024 End: 06-17-2024 ambulatory AZUL GORMAN Facility[place] Start: 06-17-2024 End: 06-17-2024 Patient encounter procedure Adrian Kinsey [facility] Start: 05-16-2024 End: 05-16-2024 Emergency department patient visit [facility] Lakshmi [facility] Start: 05-10-2024 End: 05-10-2024 Emergency department patient visit Chandan Adhikari [facility] Start: 05-04-2024 End: 05-04-2024 [facility] Start: 05-03-2024 End: 05-03-2024 Emergency department patient visit Mati Taylor [facility] Start: 04-28-2024 End: 04-28-2024 Emergency department patient visit Chandan Adhikari [facility] Start: 04-28-2024 ambulatory Tomas Moreno y:[facility] Start: 04-26-2024 End: 04-26-2024 Emergency department patient visit Chandan Adhikari [facility] Start: 04-25-2024 End: 04-25-2024 Emergency department patient visit Didier Hooks [facility] Start: 04-21-2024 End: 04-21-2024 Emergency department patient visit Johny Willson [facility] Start: 04-19-2024 End: 04-19-2024 Emergency department patient visit Didier Hooks [facility] Start: 04-17-2024 End: 04-17-2024 Emergency department patient visit Carlos Coates [facility] Start: 04-15-2024 End: 04-15-2024 ambulatory Robinson Garcia [facility] Facility:[facility] Start: 04-14-2024 End: 04-14-2024 Emergency department patient visit Johny Willson [facility] Start: 04-11-2024 End: 04-11-2024 Emergency department patient visit Carlos Coates [facility] Start: 04-08-2024 End: 04-08-2024 Emergency department patient visit Didier Hooks [facility] Start: 04-07-2024 End: 04-07-2024 Emergency department patient visit [facility] Lakshmi Goddardgenoveva [facility] Start: 04-05-2024 End: 04-06-2024 Pre-admission assessment Jose Stroud [facility] Start: 04-04-2024 End: 04-04-2024 [facility] Start: 03-31-2024 End: 03-31-2024 ambulatory DO Tomas Garcia Work Phone: [facility] Work Phone: Start: 03-31-2024 End: 03-31-2024 Departed Referred DO Tomas Garcia Work Phone: [facility] Start: 03-29-2024 End: 03-29-2024 Patient encounter procedure Anne Marie Pocos DO Work Phone: [facility] Comment on above: Other closed intra-a rticular fracture of distal end of left radius with routine healing, subsequent encounter (Primary Dx) Start: 03-29-2024 End: 03-29-2024 ambulatory ANNE MARIE POCOS Not Available Start: 03-18-2024 End: 03-18-2024 [facility] Start: 03-15-2024 End: 03-15-2024 ambulatory ANNE MARIE POCOS Not Available Start: 03-14-2024 End: 03-16-2024 Evaluation and management of inpatient Latonya GARCIA Facility[place] Start: 03-14-2024 End: 03-16-2024 Evaluation and management of inpatient Buddy Tirado [facility] Start: 03-12-2024 End: 03-12-2024 [facility] Start: 03-11-2024 End: 03-11-2024 [facility] Start: 03-09-2024 End: 03-09-2024 Emergency department patient visit Mati Taylor [facility] Start: 03-07-2024 Emergency department patient visit AZUL GORMAN Facility[facility] Start: 02-24-2024 End: 02-24-2024 Emergency department patient visit [facility] Lakshmi [facility] Start: 02-23-2024 End: 02-23-2024 Emergency department patient visit [facility] Lakshmi [facility] Start: 02-23-2024 End: 02-23-2024 Patient encounter procedure Anne Marie Pocos DO Work Phone: [facility] Comment on above: Other closed intra-a rticular fracture of distal end of left radius with routine healing, subsequent encounter (Primary Dx) Start: 02-23-2024 End: 02-23-2024 ambulatory ANNE MARIE POCOS Not Available Start: 02-11-2024 End: 02-11-2024 Emergency department patient visit [facility] Work Phone: Start: 02-11-2024 Registered Recurring DO Niranjan miriam Garcia Work Phone: [facility] Start: 02-06-2024 End: 02-06-2024 Emergency department patient visit Chandan Adhikari [facility] Start: 02-02-2024 End: 02-02-2024 Patient encounter procedure Anne Marie Pocos DO Work Phone: [facility] Comment on above: Other closed intra-a rticular fracture of distal end of left radius with routine healing, subsequent encounter (Primary Dx) Start: 02-02-2024 End: 02-02-2024 ambulatory ANNE MARIE POCOS Not Available Start: 02-02-2024 End: 02-02-2024 ambulatory ANNE MARIE POCOS Not Available Start: 01-30-2024 End: 01-30-2024 ambulatory DO CECI REYES Facility:[facility] Start: 01-30-2024 End: 01-30-2024 Lab Drop off CECI REYES [facility] Start: 01-28-2024 End: 01-28-2024 Emergency department patient visit Didier Hooks [facility] Start: 01-27-2024 End: 01-27-2024 Bamboo flowsheet Jose Staton Pocos DO Work Phone: [facility] Start: 01-27-2024 End: 01-27-2024 Bamboo flowsheet Jose Staton Pocos DO Work Phone: [facility] Start: 01-27-2024 End: 01-27-2024 ambulatory JOSE Staton POCOS Not Available Start: 01-21-2024 End: 01-21-2024 Orders Only Jose Staton Pocos DO Work Phone: [facility] Comment on above: Other closed intra-a rticular fracture of distal end of left radius with routine healing, subsequent encounter (Primary Dx) Start: 01-12-2024 End: 01-12-2024 ambulatory Anne Marie Pocos Facility:[facility] Start: 01-12-2024 End: 01-12-2024 Clinisync Result Encounter Jose Staton Pocos DO Work Phone: [facility] Unsolicited Start: 01-12-2024 End: 01-12-2024 Clinisync Result Encounter Jose Staton Pocos DO Work Phone: [facility] Unsolicited Start: 01-12-2024 End: 01-12-2024 Patient encounter procedure Jose Staton Pociliana [facility] Comment on above: Other closed intra-a rticular fracture of distal end of left radius, initial encounter (Primary Dx); Closed displaced fracture of proximal phalanx of left middle finger, initial encounter; Preoperative testing Start: 01-12-2024 End: 01-12-2024 Patient encounter status Jose Staton Pocos DO Work Phone: [facility] Start: 01-12-2024 End: 01-12-2024 ambulatory ANNE MARIE POCOS Not Available Start: 01-10-2024 End: 01-10-2024 Emergency department patient visit Mati Tyalor [facility] Start: 01-02-2024 End: 01-02-2024 Lab Drop off Amarilis Tolbertingesalvatore [facility] Start: 01-02-2024 End: 01-02-2024 ambulatory Amarilis C Dididner Facility:[facility] Start: 01-02-2024 End: 01-02-2024 Patient encounter procedure Amarilis Tolbertingeer [facility] Start: 12-19-2023 End: 12-19-2023 ambulatory AZUL GORMAN Facility:[facility] Start: 12-19-2023 End: 12-19-2023 Patient encounter procedure Gala Black [facility] Start: 12-16-2023 End: 12-16-2023 ambulatory AZUL GORMAN Facility:[facility] Start: 11-07-2023 End: 11-07-2023 ambulatory Gala Christie Black Facility:[facility] Start: 11-07-2023 End: 11-07-2023 Patient encounter procedure Gala Black [facility] Start: 10-28-2023 End: 10-28-2023 ambulatory AZUL GORMAN Facility:[facility] Start: 10-09-2023 End: 10-09-2023 ambulatory AZUL GORMAN Facility:[facility] Start: 10-09-2023 End: 10-09-2023 Patient encounter procedure Gala MarthaKaran Black [facility] Start: 09-11-2023 End: 09-12-2023 Pre-admission assessment AZUL GORMAN [facility] Start: 09-07-2023 End: 09-12-2023 ambulatory AZUL GORMAN Facility:[facility] Start: 09-07-2023 End: 09-12-2023 Observation Ana Gandhi [facility] Start: 09-06-2023 End: 09-06-2023 Emergency department patient visit BACTERIOLOGIST PHARMACEUTICAL Bebe Mccabee Work Phone: [facility] Work Phone: Start: 08-28-2023 End: 08-29-2023 Pre-admission assessment AZUL GORMAN [facility] Start: 08-28-2023 Non-patient / Non-visit BACTERIOLOGIST PHARMACEUTICAL Lucille nance Saffle Work Phone: [facility] Work Phone: Start: 08-27-2023 End: 09-02-2023 Evaluation and management of inpatient BACTERIOLOGIST PHARMACEUTICAL Bebe Campofle Work Phone: [address] Work Phone: Start: 08-27-2023 End: 08-27-2023 Emergency department patient visit Johny Willson [facility] Start: 08-22-2023 End: 08-22-2023 Emergency department patient visit BACTERIOLOGIST PHARMACEUTICAL Bebe Campofle Work Phone: [facility] Work Phone: Start: 08-21-2023 End: 08-21-2023 Emergency department patient visit oJhny Willson [facility] Start: 08-19-2023 End: 08-19-2023 ambulatory AZUL LOVEAULT Facility:[facility] Start: 08-18-2023 ambulatory Gala Moreno y:[facility] Start: 08-14-2023 End: 08-14-2023 Emergency department patient visit Johny Willson [facility] Start: 08-13-2023 End: 08-13-2023 Emergency department patient visit Mati Taylor [facility] Start: 08-12-2023 End: 08-12-2023 Emergency department patient visit Mati Staton Dokarmenmaeknzie [facility] Start: 08-09-2023 End: 08-10-2023 Emergency department patient visit Santiago Harrington [facility] Start: 08-07-2023 End: 08-07-2023 Emergency department patient visit Didier Martins Neva [facility] Start: 07-05-2023 End: 07-05-2023 Emergency department patient visit SVITLANA Ortiz Work Phone: [facility] Work Phone: Start: 06-19-2023 End: 06-19-2023 Lab Drop off JAMILAH TURNER [facility] Start: 05-26-2023 End: 05-26-2023 Emergency department patient visit Carlos Coates [facility] Start: 03-14-2023 End: 03-14-2023 Patient encounter procedure JAMILAH TURNER [facility] Start: 02-07-2023 End: 02-08-2023 [facility] Start: 02-03-2023 End: 02-04-2023 ambulatory [facility] Start: 02-03-2023 End: 02-03-2023 Subsequent hospital visit by physician Jayant Yuan MD Work Phone: [facility] Start: 02-01-2023 End: 02-01-2023 Emergency department patient visit Johny Willson [facility] Start: 01-30-2023 End: 01-30-2023 ambulatory TOMAS GARCIA Facility:[facility] Start: 01-30-2023 End: 01-30-2023 Nursing evaluation of patient and report Nurse Urol [facility] [place] Work Phone: Urology Comment on above: Urinary retention (P rimary Dx); Feeling of incomplete bladder emptying; Recurrent UTI Start: 01-29-2023 End: 01-29-2023 ambulatory FRANTZ SANTANA Facility:[facility] Start: 01-29-2023 End: 01-29-2023 Patient encounter procedure Frantz Santana APRN.CNP Work Phone: Urology Comment on above: Urinary retention (P rimary Dx); Urinary tract infection without hematuria, site unspecified; Pelvic floor dysfunction Start: 01-06-2023 End: 01-06-2023 Emergency department patient visit Chandan Munoze [facility] Start: 01-04-2023 End: 01-04-2023 Emergency department patient visit Chandan Adhikari [facility] Start: 01-04-2023 ambulatory Radha Lara RN NURSE [employer]RILLING [employer]EMAN Comment on above: Choi Catheter Brian mcclain Start: 12-29-2022 End: 12-29-2022 Emergency department patient visit Carlos Coates [facility] Start: 12-23-2022 End: 12-23-2022 Emergency department patient visit Didier Hooks [facility] Start: 11-08-2022 End: 11-08-2022 Patient encounter procedure Patrick Anne [facility] Start: 10-18-2022 End: 10-18-2022 ambulatory LULA TREVINO . Facility:[facility] Start: 08-28-2022 End: 08-29-[address] TOMAS GARCIA Facility:[facility] Start: 06-28-2022 End: 06-28-2022 ambulatory TOMAS GARCIA [facility] Start: 06-28-2022 End: 06-28-2022 Phys/qhp telephone evaluation 11-20 min Upender Jhon RAMOS Work Phone: [facility] Comment on above: Post traumatic stres s disorder (PTSD) (Primary Dx); Panic disorder with agoraphobia; Bipolar 1 disorder, manic, mild (HCC) Start: 06-24-2022 Patient encounter procedure Ike Cervantes APRN.TECHNICIAN Work Phone: [facility] Start: 06-24-2022 Progress Note Ike ESCOBAR RN.TECHNICIAN Work Phone: [facility] Department Start: 06-17-2022 Patient encounter procedure Ike Cervantes APRN.TECHNICIAN Work Phone: [facility] Start: 06-17-2022 Progress Note Ike ESCOBAR RN.TECHNICIAN Work Phone: [facility] Start: 06-12-2022 Patient encounter procedure Itri Brionna Tellezn Work Phone: [facility] Start: 06-12-2022 Progress Note Itri A Romaine Work Phone: [facility] Start: 06-11-2022 End: 01-17-2023 ambulatory Clark Hernandez Other [facility] Other Start: 06-11-2022 Office outpatient vi sit 15 minutes Clark Hernandez [facility] Start: 06-10-2022 End: 06-10-2022 Telemedicine consultation with patient Alison Ferreira MD Work Phone: [facility] Comment on above: Bipolar 1 disorder, manic, mild (HCC) (Primary Dx); Panic disorder with agoraphobia Start: 05-28-2022 End: 05-28-2022 Patient encounter procedure Tomas GARCIA [facility] [place] Start: 05-25-2022 End: 06-11-2022 Evaluation and management of inpatient DO Tomas Garcia Work Phone: [address] Work Phone: Start: 05-24-2022 End: 05-25-2022 Emergency department patient visit Santiago GuerrierKaran Len [facility] Start: 05-24-2022 End: 05-24-[address] TOMAS GARCIA Facility:[facility] Start: 05-09-2022 Refill Alison Ferreira MD Work Phone: [facility] Comment on above: Panic disorder with agoraphobia Start: 05-03-2022 End: 05-03-2022 Emergency department patient visit Chandan Adhikari [facility] Start: 05-03-2022 End: 05-03-[address] TOMAS GARCIA Facility:[facility] Start: 05-02-2022 End: 05-02-2022 Emergency department patient visit Mati Taylor [facility] Start: 04-25-2022 End: 04-25-2022 Lab Drop off Tomas GARCIA [facility] Start: 04-25-2022 End: 04-25-2022 Patient encounter procedure Tomas Guerrier JOSE [facility] [place] Start: 04-24-2022 Patient encounter procedure Ike Cervantes APRN.TECHNICIAN Work Phone: [facility] Start: 04-24-2022 Progress Note Ike ESCOBAR RN.TECHNICIAN Work Phone: [facility] Start: 04-22-2022 Patient encounter procedure Itri Brionna Romaine Work Phone: [facility] Start: 04-22-2022 Progress Note Itri A Romaine Work Phone: [facility] Start: 04-17-2022 End: 04-19-2022 Evaluation and management of inpatient Tereso HATFIELD [facility] Start: 04-14-2022 End: 04-14-2022 ambulatory PA PRABHA TREVINO . Facility: Start: 04-12-2022 Jaya Ferreira MD Work Phone: [facility] Comment on above: Panic disorder with agoraphobia Start: 04-10-2022 End: 04-10-[address] DOCTOR THOMSON Facility:[facility] Start: 04-10-2022 End: 04-10-2022 Emergency department patient visit Didier Hooks [facility] Start: 04-01-2022 Telephone encounter Quynh Raines MD Work Phone: Urology Comment on above: Patient Question Start: 03-28-2022 End: 03-28-2022 Lab Drop off Tomas Guerrier JOSE [facility] Start: 03-28-2022 End: 03-28-2022 Patient encounter procedure Tomas GARCIA [facility] Start: 03-27-2022 End: 03-27-2022 Patient encounter procedure Tomas GARCIA [facility] Start: 03-11-2022 End: 03-11-2022 ambulatory TOMAS GARCIA [facility] Start: 03-04-2022 End: 03-04-2022 Lab Drop off Tatum X Orzech [facility] Start: 03-04-2022 End: 03-04-2022 Patient encounter procedure Tatum X Orzech [facility] Start: 02-19-2022 Refill Alison Ferreira MD Work Phone: [facility] Comment on above: Panic disorder with agoraphobia Start: 02-18-2022 End: 02-18-[address] DOCTOR THOMSON Facility: Start: 02-17-2022 End: 02-17-2022 Emergency department patient visit Didier Hooks [facility] Start: 02-15-2022 End: 02-15-2022 Emergency department patient visit Johny Willson [facility] Start: 02-13-2022 End: 02-13-2022 Emergency department patient visit Johny Willson [facility] Start: 02-11-2022 Telephone encounter Quynh Raines MD Work Phone: Urology Comment on above: Self Catheters/Patie nt Request Start: 02-07-2022 End: 02-07-2022 Orders Only Quynh Raines MD Work Phone: Urology Comment on above: Feeling of incomplet e bladder emptying (Primary Dx); Recurrent UTI Start: 02-06-2022 Chart abstracting Quynh Griffin Work Phone: [facility] Start: 02-03-2022 End: 02-05-2022 Evaluation and management of inpatient Gumaro WELLINGTON [facility] Start: 02-01-2022 End: 02-01-2022 Emergency department patient visit Mati Taylor [facility] Start: 01-31-2022 End: 01-31-2022 Emergency department patient visit Mati Taylor [facility] Start: 01-30-2022 End: 01-30-2022 Emergency department patient visit Mati Taylor [facility] Start: 01-23-2022 Telephone encounter Frantz trent APRN.CNP Work Phone: Urology Comment on above: Patient Question (Lula guillen's RN calling from [facility] stating that a cysto procedure was to be done on the patient, but they have not heard anything.//Please advise.) Start: 01-22-2022 Refill Adrian OTOOLE [facility] Comment on above: Panic disorder with agoraphobia Start: 01-16-2022 ambulatory Suellen Borges RN NURS E DRILLING FOREMAN Comment on above: Urinary Retention Start: 01-15-2022 End: 01-15-2022 Lab Drop off JHONATAN APPIAH [facility] Start: 01-15-2022 End: 01-15-2022 Patient encounter procedure JOHNATAN APPIAH [facility] Start: 01-14-2022 End: 01-14-2022 Emergency department patient visit Chandan Adhikari [facility] Start: 01-14-2022 End: 01-14-2022 Lab Drop off Tomas GARCIA [facility] Start: 2022 End: 2022 Patient encounter procedure Frantz Santana APRN.[facility] Work Phone: Urology Comment on above: Urinary retention (P rimary Dx); Urinary tract infection without hematuria, site unspecified; Chronic constipation Start: 12-27-2021 End: 12-27-2021 Patient encounter procedure JHONATAN APPIAH [facility] Start: 12-26-2021 End: 12-26-2021 Patient encounter procedure Rosa LOPES [facility] Start: 12-20-2021 End: 12-20-2021 Emergency department patient visit Didier Hooks [facility] Start: 12-16-2021 End: 12-17-2021 Observation Zeyad Sharma [facility] Start: 12-15-2021 End: 12-15-2021 Emergency department patient visit Carlos Coates [facility] Start: 12-14-2021 End: 12-14-2021 Emergency department patient visit Johny Willson [facility] Start: 12-12-2021 Telephone encounter Frantz D Pi erson BACTERIOLOGIST PHARMACEUTICAL.CORPORATE EVENT PLANNER Work Phone: Urology Comment on above: Patient Update Start: 12-09-2021 End: 12-09-2021 Emergency department patient visit Johny Dueñas [facility] Start: 12-07-2021 End: 12-07-2021 Patient encounter procedure Frantz Santana APRN.CORPORATE EVENT PLANNER Work Phone: Urology Comment on above: Urinary tract infect ion without hematuria, site unspecified (Primary Dx); Retention of urine; Pelvic floor dysfunction Start: 12-04-2021 End: 12-04-2021 Patient encounter procedure Frantz Santana BACTERIOLOGIST PHARMACEUTICAL.CORPORATE EVENT PLANNER Work Phone: Urology Comment on above: Urinary tract infect ion without hematuria, site unspecified (Primary Dx); Feeling of incomplete bladder emptying; Pelvic pain Start: 12-03-2021 End: 12-03-[address] TIMO PRUETT . Facility: Start: 11-30-2021 End: 11-30-2021 Lab Drop off Tatum X Orzech [facility] Start: 11-30-2021 End: 11-30-2021 Patient encounter procedure Tatum X Orzech [facility] Start: 11-23-2021 End: 11-23-2021 Lab Drop off Rosalie Bush [facility] Start: 11-23-2021 End: 11-23-2021 Patient encounter procedure Rosalie Bush [facility] [place] Start: 11-21-2021 End: 11-21-2021 Emergency department patient visit Carlos Coates [facility] Start: 11-17-2021 End: 11-17-2021 Emergency department patient visit Chandan Adhikari [facility] Start: 11-16-2021 End: 11-16-2021 Emergency department patient visit Chandan Adhikari [facility] Start: 11-08-2021 End: 11-08-2021 Emergency department patient visit Didier Hooks [facility] Start: 11-07-2021 End: 11-07-2021 Patient encounter procedure Rosalie Bush [facility] Start: 11-06-2021 End: 11-06-2021 Emergency department patient visit Johny Willson [facility] Start: 11-01-2021 End: 11-01-2021 Emergency department patient visit Cralos Coates [facility] Start: 10-30-2021 End: 10-30-2021 ambulatory [facility] Start: 10-30-2021 End: 10-30-2021 Office outpatient visit 15 minutes Alison Ferreira MD Work Phone: [facility] Comment on above: Bipolar 1 disorder, manic, mild (HCC) (Primary Dx); Post traumatic stress disorder (PTSD); Panic disorder with agoraphobia; Insomnia due to mental disorder Start: 10-27-2021 End: 10-27-2021 Emergency department patient visit Johny Willson [facility] Start: 10-23-2021 End: 10-23-2021 Emergency department patient visit Chandan Adhikari [facility] Start: 10-22-2021 End: 10-23-2021 Emergency department patient visit Mati Taylor [facility] Start: 10-21-2021 ambulatory Anju LEE SE [employer] Comment on above: UTI Start: 10-20-2021 End: 10-20-2021 Emergency department patient visit Chandan Adhikari [facility] Start: 10-14-2021 End: 10-14-2021 Emergency department patient visit Johny Dueñas [facility] Start: 10-12-2021 End: 10-12-2021 Emergency department patient visit Carlos Coates [facility] Start: 10-12-2021 End: 10-12-2021 Well adult monitoring check done Carlos Coates [facility] Start: 10-08-2021 End: 10-08-2021 Lab Drop off Dulce Anthony [facility] Start: 10-04-2021 End: 10-04-2021 Emergency department patient visit DO Messerory Jose Work Phone: [facility] Start: 10-03-2021 End: 10-04-2021 Emergency department patient visit Mati Taylor [facility] Start: 10-02-2021 ambulatory Kyler robert MD Work Phone: Urology Start: 10-01-2021 End: 10-01-2021 Emergency department patient visit Chandan Adhikari [facility] Start: 10-01-2021 End: 10-01-2021 Well adult monitoring check done Chandan Adhikari [facility] Start: 09-30-2021 End: 09-30-2021 Emergency department patient visit Didier Hooks [facility] Start: 09-26-2021 End: 09-26-2021 Lab Drop off Rosalie Bush [facility] Start: 09-26-2021 End: 09-26-2021 Patient encounter procedure Rosalie Bush [facility] Start: 09-17-2021 End: 09-17-2021 Patient encounter procedure Rosalie Bush [facility] Start: 09-17-2021 End: 09-17-2021 Emergency department patient visit Chandan Adhikari [facility] Start: 09-13-2021 ambulatory Irma Gregg RN NURSE DRILLING FOREMAN Comment on above: Urinary Retention Start: 09-13-2021 End: 09-13-2021 Lab Drop off JHONATAN Jolynn APPIAH [facility] Start: 09-13-2021 End: 09-13-2021 Patient encounter procedure JHONATAN APPIAH [facility] Start: 09-08-2021 End: 09-08-2021 Emergency department patient visit DO Tomas Garcia Work Phone: [facility] Start: 09-08-2021 End: 09-08-2021 Emergency department patient visit Chandan Adhikari [facility] Start: 09-08-2021 End: 09-08-2021 Emergency department patient visit Santiago Harrington [facility] Start: 09-07-2021 End: 09-07-2021 Emergency department patient visit Santiago Harrington [facility] Start: 09-07-2021 End: 09-07-2021 Emergency department patient visit Carlos Coates [facility] Start: 09-06-2021 End: 09-06-2021 Lab Drop off Tomas GARCIA [facility] Start: 09-06-2021 End: 09-06-2021 Patient encounter procedure Tomas GARCIA [facility] [place] Start: 08-28-2021 End: 08-28-2021 Lab Drop off Rosa LOPES [facility] Start: 08-15-2021 End: 08-15-2021 Patient encounter procedure Rosa LOPES [facility] Start: 08-13-2021 Jaya Willis MA [facility] Comment on above: Panic disorder with agoraphobia Start: 08-07-2021 End: 08-08-2021 Emergency department patient visit DO Tomas Garcia Work Phone: [facility] Start: 07-27-2021 End: 07-27-2021 Emergency department patient visit DO Tomas Jose Work Phone: [facility] Start: 07-22-2021 End: 07-22-2021 Emergency department patient visit DO Tomas Jose Work Phone: [facility] Start: 07-19-2021 End: 07-19-2021 Emergency department patient visit DO Tomas Jose Work Phone: [facility] Start: 07-17-2021 End: 07-17-2021 ambulatory ALISON FERREIRA [facility] Start: 07-17-2021 End: 07-17-2021 Phys/qhp telephone evaluation 11-20 min Alison Ferreira MD Work Phone: [facility] Comment on above: Post traumatic stres s disorder (PTSD) (Primary Dx); Bipolar 1 disorder, manic, mild (HCC); Panic disorder with agoraphobia; Insomnia due to mental disorder Start: 07-16-2021 Refill Jessica Willis [facility] Comment on above: Panic disorder with agoraphobia Start: 06-15-2021 Refill Taniya Vargas MA [facility] Comment on above: Panic disorder with agoraphobia Start: 04-16-2021 End: 04-16-2021 Phys/qhp telephone evaluation 11-20 min Alison Ferreira MD Work Phone: [facility] Comment on above: Bipolar 1 disorder, manic, mild (HCC) (Primary Dx); Post traumatic stress disorder (PTSD); Panic disorder with agoraphobia; Insomnia due to mental disorder Start: 04-06-2021 Refill Taniya Vargas MA [facility] Start: 12-29-2020 End: 12-29-2020 Office outpatient visit 25 minutes Alison Ferreira MD Work Phone: [facility] Comment on above: Bipolar 1 disorder, manic, mild (HCC) (Primary Dx); Post traumatic stress disorder (PTSD); Panic disorder with agoraphobia; Insomnia due to mental disorder Start: 09-25-2020 End: 09-25-2020 Refmazin Harris LPN [facility] Comment on above: Panic Disorder with Agoraphobia Start: 09-19-2020 End: 09-19-2020 Phys/qhp telephone evaluation 11-20 min Alison Ferreira MD Work Phone: [facility] Comment on above: Bipolar 1 disorder, manic, mild (HCC) (Primary Dx); Post traumatic stress disorder (PTSD); Panic Disorder with Agoraphobia; Insomnia due to mental disorder Start: 05-01-2020 End: 05-01-2020 Phys/qhp telephone evaluation 11-20 min Alison Ferreira Work Phone: [facility] Comment on above: Bipolar 1 disorder, manic, mild (HCC) (Primary Dx); Post traumatic stress disorder (PTSD); Panic Disorder with Agoraphobia; Insomnia due to mental disorder Start: 09-27-2017 End: 09-29-2017 Evaluation and management of inpatient JAMES CANCHOLA Facility:[facility] Procedures Date Procedure Procedure Detail Performing Clinician Start: 03-29-2024 Radex wrist complete minimum 3 views Anne Marie Pocos DO Work Phone: Start: 02-23-2024 Radex wrist complete minimum 3 views Anne Marie Pocos DO Work Phone: Start: 02-02-2024 Radex wrist complete minimum 3 views Anne Marie Pocos DO Work Phone: Start: 01-12-2024 [facility] W/ AUTO DIFF D avid A Pocos DO Work Phone: Start: 09-06-2023 CT of head without contrast BACTERIOLOGIST PHARMACEUTICAL Bebe Blue Rooster Work Phone: Start: 09-06-2023 Plain chest X-ray BACTERIOLOGIST PHARMACEUTICAL Bebe Blue Rooster Work Phone: Start: 09-06-2023 SARS-CoV-2, Influenz a & RSV (PCR) BACTERIOLOGIST PHARMACEUTICAL Bebe Blue Rooster Work Phone: Start: 08-22-2023 Urine culture BACTERIOLOGIST PHARMACEUTICAL Trevor salazarmagda Saffle Work Phone: Start: 08-22-2023 CT of head without contrast BACTERIOLOGIST PHARMACEUTICAL Bebe Safmacke Work Phone: Start: 07-05-2023 CT of head without contrast BACTERIOLOGIST PHARMACEUTICAL Bebe Saffle Work Phone: Start: 07-05-2023 Plain chest X-ray BACTERIOLOGIST PHARMACEUTICAL Bebe Saffle Work Phone: Start: 07-05-2023 Urine culture BACTERIOLOGIST PHARMACEUTICAL Trevor monte Saffle Work Phone: Start: 02-03-2023 Basic metabolic pane l calcium total Monse Faggionato BACTERIOLOGIST PHARMACEUTICAL - CLINICAL DATA MANAGEMENT MANAGER Work Phone: Start: 05-27-2022 CT of head without contrast DO Tomas Garcia Work Phone: Start: 12-04-2021 Culture bacterial quanttative colony count urine Frantz Santana BACTERIOLOGIST PHARMACEUTICAL.CORPORATE EVENT PLANNER Work Phone: Start: 10-02-2021 Urnls dip stick/tabl et rgnt auto w/o microscopy Bulk Order Provider Start: 09-08-2021 Urine culture DO Niranjan Garcia Work Phone: Start: 08-07-2021 Computed tomography of abdomen and pelvis with contrast DO Tomas Garcia Work Phone: Start: 08-07-2021 Urine culture DO Niranjan Garcia Work Phone: Start: 07-27-2021 Urine culture DO Niranjan Garcia Work Phone: Start: 07-22-2021 Urine culture DO Niranjan Garcia Work Phone: Start: 07-19-2021 Urine culture DO Niranjan Garcia Work Phone: Start: 07-06-2019 Urodynamic studies Vesta LOPES Start: 07-05-2019 cysto w/ UD Rosa Barker Start: 10-04-2016 left femur ORIF w fe moral cortical strut graft Rosa LOPES Start: 08-30-2016 lt bipolar hemiarthroplasty Rosa LOPES Appendectomy Rosa LOPES Cardiovascular stres s test using pharmacologic stress agent Rosa LOPES Cataract Surgery-Jack ateral Eye Rosa LOPES section Rosa LOPES Comment on above: x3 x3 foot surgery right Rosa CHERY AM I&D 2 Rosa LOPES Comment on above: pt states multiple t imes pt states multiple t imes muscle removed 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 Rosa LOPES Open insertion of Br oviac central venous catheter Rosa LOPES Open reduction of fr acture with internal fixation Adrian Kinsey Comment on above: lt wrist Pain management medi cation delivery system pump (physical object) Rosa LOPES right leg surgery 3 Rosa ALEMAN Comment on above: multiple surgeries t o Right leg including: plate, external fixator, gen insertion, graft multiple surgeries t o Right leg including: plate, external fixator, gen insertion, graft right leg surgery 4 Adrian Whitney Comment on above: multiple surgeries t o Right leg including: plate, external fixator, gen insertion, graft Plan of Treatment Date Care Activity Detail Author Start: 05-24-2032 Tetanus vaccination Tetanus: Every 1 0yrs [facility] Start: 06-19-2029 Tetanus vaccination Tetanus: Every 1 0yrs [facility] Start: 08-09-2024 ambulatory Ambulatory Facility:Tae [facility]rier Start: 04-05-2024 End: 04-05-2024 Patient encounter procedure 04/05/2024 3:45 PM EST Office Visit [facility] [address] [place] [address] Jose Stroud, DO [address] [place] [address] [facility] Start: 03-31-2024 Bacteria identified in Urine by Culture Urine Culture [facility] Start: 03-15-2024 End: 03-15-2024 Patient encounter procedure 03/15/2024 10:30 AM EDT Office Visit [facility] [address] [facility] [place] [address] Jose Stroud, DO [address] [place] [place] [address] [facility] Start: 02-23-2024 End: 02-23-2024 Patient encounter procedure 02/23/2024 10:30 AM EDT Office Visit [facility] [address] [place] [address] Jose Stroud, DO [address] [facility] [place] [address] [facility] Start: 02-02-2024 End: 02-02-2024 Patient encounter procedure 02/02/2024 1:15 PM EDT Office Visit [facility] [address] [place] [address] Jose Stroud, DO [address] [place] [place] [address] [facility] Start: 02-02-2024 End: 02-02-2024 Patient encounter procedure 02/02/2024 9:45 AM EDT Office Visit [facility] [address] [place] [place] [address] Jose Stroud, DO [address] [place] [address] [facility] Start: 01-31-2024 BP CONTROLLED (<130/80) BP CONTROLLE D (<130/80) [facility] Start: 01-25-2024 Influenza vaccination Influenza Vacc ine (#1) [facility] Start: 01-22-2024 End: 01-22-2024 Patient encounter procedure 01/22/2024 11:00 AM EDT Procedure Visit [facility] Jose Stroud DO [address] [place] [address] [facility] Start: 01-12-2024 End: 01-11-2025 CBC W Auto Differential panel - Blood CBC and differential Lab Routine Other closed intra-articular fracture of distal end of left radius, initial encounter Preoperative testing Expected: 01/12/2024 (Approximate), Expires: 01/11/2025 [facility] Work Phone: Comment on above: Expected: 01/12/2024 (Approximate), Expires: 01/11/2025 Start: 01-12-2024 End: 01-11-2025 Comprehensive metabolic 2000 panel - Serum or Plasma Comprehensive metabolic panel Lab Routine Other closed intra-articular fracture of distal end of left radius, initial encounter Preoperative testing Expected: 01/12/2024 (Approximate), Expires: 01/11/2025 [facility] Comment on above: Expected: 01/12/2024 (Approximate), Expires: 01/11/2025 Start: 01-12-2024 End: 01-11-2025 XR Chest 2 Views XR chest 2 views Imaging Routine Other closed intra-articular fracture of distal end of left radius, initial encounter Preoperative testing Expected: 01/12/2024 (Approximate), Expires: 01/11/2025 [facility] Comment on above: Expected: 01/12/2024 (Approximate), Expires: 01/11/2025 Start: 09-06-2023 Referral to [facility] Start: 09-02-[address] [facility] Start: 08-28-2023 Administration of prophylactic treatment [facility] Start: 08-27-2023 Referral to [facility] Start: 08-27-2023 Hospital admission [facility] Start: 08-22-2023 Bacteria identified in Urine by Culture [facility] Start: 07-05-2023 Bacteria identified in Urine by Culture [facility] Start: 02-07-2023 BP CONTROLLED (<130/80) BP CONTROLLE D (<130/80) [facility] Start: 01-24-2023 Influenza vaccination INFLUENZA (#1) [facility] Start: 2023 BP CONTROLLED (<130/80) BP CONTROLLE D (<130/80) [facility] Start: 12-24-2022 Influenza vaccination Flu vaccine (# 1) [facility] Start: 12-07-2022 BP CONTROLLED (<130/80) BP CONTROLLE D (<130/80) [facility] Start: 06-11-[address] [facility] Start: 06-10-2022 End: 06-10-2022 Telemedicine consultation with patient 06/10/2022 Telemedicine Telephone Psychiatry Alison Ferreira MD [address] [place] [id number] [facility] Start: 06-09-2022 Urine culture Urine Culture [facility] Start: 06-03-2022 Referral to painter mirror [facility] Start: 05-27-2022 Administration of prophylactic treatment [facility] Start: 05-26-2022 ADVANCE DIRECTIVE DISCUSSION ADVANCE DIRECTIVE DISCUSSION [facility] Start: 05-25-2022 Referral to Double Needle Operator Lockstitch [facility] Start: 05-25-2022 Hospital admission [facility] Start: 03-05-2022 End: 03-05-2022 Patient encounter procedure 03/05/2022 Office Visit Alison Fernandes MD [address] [facility] [address] [place] [id number] [facility] Start: 02-01-2022 End: 02-01-2022 Patient encounter procedure 02/01/2022 Office Visit Alison Fernandes MD [address] [facility] [address] [place] [id number] [facility] Start: 01-24-2022 Influenza vaccination [facility] Start: 10-15-2021 End: 10-15-2021 Patient encounter procedure 10/15/2021 Office Visit Psychiatry Alison Ferreira MD [address] [facility] [address] [place] [id number] [facility] Start: 09-03-2021 COVID-19 VACCINE (4 - Booster for Moderna series) COVID-19 VACCINE (4 - Booster for Moderna series) [facility] Start: 07-20-2021 End: 07-20-2021 Patient encounter procedure 07/20/2021 Office Visit Psychiatry Alison Ferreira MD [address] [facility] [address] [place] [id number] [facility] Start: 07-17-2021 End: 07-17-2021 Patient encounter procedure 07/17/2021 Office Visit Psychiatry Alison Ferreira MD [address] [facility] [address] [place] [id number] [facility] Start: 06-30-2021 COVID-19 VACCINE (4 - Booster for Moderna series) COVID-19 VACCINE (4 - Booster for Moderna series) [facility] Start: 06-30-2021 COVID-19 VACCINE (4 - Moderna series) COVID-19 VACCINE (4 - Moderna series) [facility] Start: 05-26-2021 ADVANCE DIRECTIVE DISCUSSION ADVANCE DIRECTIVE DISCUSSION [facility] Start: 05-26-2021 COVID-19 VACCINE (2 - Pfizer series) COVID-19 VACCINE (2 - Pfizer series) [facility] Start: 04-13-2021 End: 04-13-2021 Patient encounter procedure 04/13/2021 Office Visit Psychiatry Alison Ferreira MD [address] [facility] [address] [place] [id number] [facility] Start: 03-17-2021 COVID-19 Vaccine (3 - Booster for Moderna series) COVID-19 Vaccine (3 - Booster for Moderna series) [facility] Start: 02-15-2021 COVID-19 Vaccine (3 - Booster for Moderna series) COVID-19 Vaccine (3 - Booster for Moderna series) [facility] Start: 01-24-2021 Influenza vaccination Sequenti al Influenza Vaccine (#1) [facility] Start: 11-10-2020 COVID-19 Vaccine (3 - Booster for Moderna series) COVID-19 Vaccine (3 - Booster for Moderna series) [facility] Start: 08-29-2015 LIPID SCREEN LIPID SCREEN [facility] Start: 09-03-2013 DIABETES SCREEN DIABETES SCREEN [facility] Start: 01-07-2013 BONE DENSITY BONE DENSITY [facility] Start: 01-07-2013 Fall risk assessment Falls Risk Asse ssment [facility] Start: 01-07-2013 PNEUMOCOCCAL: 65+ (1 - PCV) PNEUMOCOCCAL: 65+ (1 - PCV) [facility] Start: 01-07-2013 PNEUMOVAX AGE 65 AND OVER WITH 5YR LOOKBACK (#1) PNEUMOVAX AGE 65 AND OVER WITH 5YR LOOKBACK (#1) [facility] Start: 01-07-1998 Screening for malign ant neoplasm of colon [facility] Start: 01-07-1998 SHINGRIX VACCINE (1 of 2) SHINGRIX VACCINE (1 of 2) [facility] Start: 01-07-1993 COLOGUARD (FIT-DNA) COLOGUARD (FIT-D NA) [facility] Start: 01-07-1993 Colonoscopy COLONOSCOPY [facility] Start: 01-07-1993 COLORECTAL CANCER SCREENING COLORECTAL CANCER SCREENING [facility] Start: 01-07-[address] COLONOGRAPHY [facility] Start: 01-07-1993 FECAL OCCULT BLOOD FECAL OCCULT BLOO D [facility] Start: 01-07-1993 SIGMOIDOSCOPY SIGMOIDOSCOPY [facility] Start: 1988 Mammography MAMMOGRAM [facility] Start: 1988 Screening for malign ant neoplasm of breast Mammogram [facility] Start: 01-07-1967 DTaP/Tdap/Td vaccine (1 - Tdap) DTaP/Tdap/Td vaccine (1 - Tdap) [facility] Start: 01-07-1967 Urine microalbumin profile DTAP,TDAP,TD (1 - Tdap) [facility] Start: 01-07-1966 ANNUAL PCP TEAM CONDUCTOR AND ENGINEER JADYN DISEASE VISIT ANNUAL PCP TEAM CHRONIC DISEASE VISIT [facility] Start: 01-07-1966 BP CONTROLLED (<130/80) BP CONTROLLE D (<130/80) [facility] Start: 01-07-1966 Hepatitis C antibody , confirmatory test Hepatitis C Screening [facility] Start: 01-07-1966 Hepatitis C screening Hepatitis C [facility] Start: 01-07-1966 HEPATITIS C SCREENING HEPATITIS C [facility] Start: 1964 COVID-19 Vaccine (1) COVID-19 Vaccin e (1) [facility] Start: 1960 Adolescent depressio n screening assessment Depression Screening (PHQ9) [facility] Start: 1960 COVID-19 Vaccine (1) COVID-19 Vaccin e (1) [facility] Start: 01-07-1953 COVID-19 VACCINE (1) COVID-19 VACCIN E (1) [facility] Start: 01-07-1951 History and physical examination, annual for health maintenance Wellness Visit [facility] Start: 1948 COVID-19 Vaccine (#1) COVID-19 Vacci ne (#1[email or web address] Start: [facility] Fall risk assessment Falls Risk Asse ssment [facility] Start: 1948 Medicare Annual Well ness (AWV) Medicare Annual Wellness (AWV) [facility] Start: 1948 Screening for malign ant neoplasm of colon [facility] Start: 1948 Screening for osteoporosis Dexa Scan [facility] Start: 1948 Screening mammography Mammogram [facility] End: 02-03-2023 Basic metabolic 2000 panel - Serum or Plasma [employer] Work Phone: Comment on above: Once for 1 Occurrenc es starting 02/03/2023 until 02/03/2023 Patient Education [facility] Work Phone: Patient referral [facility] Work Phone: Urine culture [facility] XR Wrist - left 3 Views XR wrist 3+ views left Imaging Routine Other closed intra-articular fracture of distal end of left radius with routine healing, subsequent encounter 02/23/2024 8:00 AM EDT [facility] Work Phone: XR Wrist - left 3 Views XR wrist 3+ views left Imaging Routine Other closed intra-articular fracture of distal end of left radius with routine healing, subsequent encounter 03/29/2024 11:44 AM EST [facility] Work Phone: XR Wrist - left 3 Views XR wrist 3+ views left Imaging Routine Other closed intra-articular fracture of distal end of left radius with routine healing, subsequent encounter 02/02/2024 8:15 AM EDT [facility] Work Phone: [facility] Immunizations Immunization Date Immunization Notes Care Provider Antonio bello 03-06-2023 influenza virus vaccine, unspecified formulation Jose Stroud DO [facility] 05-24-2022 tetanus toxoid, redu rita diphtheria toxoid, and acellular pertussis vaccine, adsorbed Snatiago Harrington [facility] 03-20-2022 influenza virus vaccine, unspecified formulation Tomas GARCIA [facility] 05-05-2021 SARS-CoV-2 (COVID-19 ) mRNA BNT-162b2 vax Tomas GARCIA [facility] 03-20-2021 influenza, injectabl e, quadrivalent, preservative free Lee SALAM [facility] 02-23-2021 influenza virus vaccine, unspecified formulation Lee SALAM [facility] 09-15-2020 SARS-CoV-2 (COVID-19 ) mRNA-1273 vaccine Dulce Anthony [facility] 08-18-2020 SARS-CoV-2 (COVID-19 ) mRNA-1273 vaccine Dulce Anthony [facility] 02-25-2020 influenza virus vaccine, unspecified formulation Dulce Anthony [facility] 06-19-2019 tetanus toxoid, redu rita diphtheria toxoid, and acellular pertussis vaccine, adsorbed; Translations: [Adacel (Tdap)] Lee Very [place] Art [facility] 02-25-2019 influenza virus vaccine, unspecified formulation Dulce Anthony [facility] 01-24-2019 influenza virus vaccine, unspecified formulation Lee SALAM [facility] 06-25-2018 zoster vaccine recombinant Dulce Anthony [facility] 01-16-2018 influenza virus vaccine, unspecified formulation Dulce Anthony [facility] 09-10-2017 zoster vaccine recombinant Dulcenusrat Anthony [facility] 07-25-2017 pneumococcal polysaccharide vaccine, 23 valent Lee SALAM [facility] 01-18-2017 influenza virus vaccine, unspecified formulation Dulce Anthony [facility] 04-01-2016 pneumococcal conjuga te vaccine, 13 valent Lee SALAM [facility] 02-04-2016 influenza virus vaccine, unspecified formulation Dulce Anthony [facility] 02-17-2015 influenza virus vaccine, unspecified formulation Dulce Anthony [facility] 06-29-2014 zoster vaccine, live Dulce Anthony [facility] 03-22-2013 pneumococcal polysaccharide vaccine, 23 valent Lee SALAM [facility] 01-27-2010 tetanus toxoid, redu rita diphtheria toxoid, and acellular pertussis vaccine, adsorbed Lee Very [place] [facility] NEGATED: Highlighted row has not occurred!03-04-2022 influenza virus vaccine, unspecified formulation Tatum Liang [facility] NEGATED: Highlighted row has not occurred!10-10-2022 SARS-CoV-2 mRNA (tozinamhai 5y-11y) vaccine Tatum Liang [facility] Care Payers Date Payer Category Payer Medicare (Managed Care) [facility] [id number] 2021 Medicare UHC MEDICARE UHC DUAL COMPLETE HMO SNP [id number] 2021-Present [phone] [address] [place] [address] Medicare [id number]. [id number] 2019 Medicaid [id number]. [id number] 2019 Medicaid [id number]. 1.13.385.2. [id number] 2017 Medicare [id number] 2015 Unknown ANTHEM BCBS OUT OF STATE [facility] [id number] 2015-Present [id number]. [id number] 2012 Unknown AARP AARP [employer]ISABET HICKS [id number] 2012-Present [id number]. 7.3.498826.315 2003 Medicare MEDICARE MEDICAR E PART A & B [id number] 2003-Present [place] [id number]. 7.3.722277.315 2003 Medicare [id number] 1.2.840.814204.1.13.385.2. 7.3.311501.315 2003 Medicare 1.2.840.128884. 1.13.385.2. 7.3.115706.315 2003 Medicare [id number] 1959 Medicaid [id number] 1959 Self-pay [id number] 1948 Unknown [id number] 2..840.1.802694.3.579.2. 903 1948 Unknown [id number] 2.16.840.1.312144.3.579.2. 903 1948 Unknown [id number] 2..840.1.424587.3.579.2. 903 1948 Unknown [id number] 2.16.840.1.355429.3.579.2. 903 1948 Unknown [id number] 2.16.840.1.381563.3.579.2. 593 1948 Unknown [id number] 2.16.840.1.818450.3.579.2. 593 1948 Unknown [id number] 2.16.840.1.841729.3.579.2. 593 1948 Unknown [id number] 2.16.840.1.085845.3.579.2. 593 1948 Unknown [id number] 2.16.840.1.411105.3.579.2. 593 1948 Unknown [id number] 2.16.840.1.533929.3.579.2. 593 1948 Unknown [id number] 2.16.840.1.024787.3.579.2. 593 1948 Unknown [id number] 2.16.840.1.741882.3.579.2. 727 1948 Unknown [id number] 2.16.840.1.495358.3.579.2. 727 1948 Unknown [id number] 2.16.840.1.775629.3.579.2. 72 1948 Unknown [id number] 2.16.840.1.112124.3.579.2. 727 1948 Unknown [id number] 2.16.840.1.326170.3.579.2. 72 1948 Unknown [id number] 2.16.840.1.450077.3.579.2. 727 1948 Unknown [id number] 2.16.840.1.269035.3.579.2. 72 1948 Unknown [id number] 2.16.840.1.977666.3.579.2. 125 1948 Unknown [id number] 2.16.840.1.647775.3.579.2. 125 1948 Unknown [id number] 2.16.840.1.420869.3.579.2. 125 1948 Unknown [id number] 2.16.840.1.899714.3.579.2. 125 1948 Unknown [id number] 2.16.840.1.275654.3.579.2. 125 1948 Unknown [id number] 2.16.840.1.651410.3.579.2. 1259 1948 Unknown [id number] 2.16.840.1.147683.3.579.2. 125 1948 Unknown [id number] 2.16.840.1.350372.3.579.2. 1258 1948 Unknown [id number] 2.16.840.1.297319.3.579.2. 1258 1948 Unknown [id number] 2.16.840.1.800766.3.579.2. 72 1948 Unknown [id number] 2.16.840.1.566036.3.579.2. 1948 Unknown [id number] 2.16.840.1.432937.3.579.2. 1948 Unknown [id number] 2.16.840.1.523742.3.579.2. 1948 Unknown [id number] 2.16.840.1.145144.3.579.2. 1948 Unknown [id number] 2.16.840.1.144598.3.579.2. 1948 Unknown [id number] 2.16.840.1.857176.3.579.2. 72 1948 Unknown [id number] 2.16.840.1.808825.3.579.2. 1948 Unknown [id number] 2.16.840.1.344271.3.579.2. 72 1948 Unknown [id number] 2.16.840.1.689538.3.579.2. 72 1948 Unknown [id number] 2.16.840.1.472783.3.579.2. 72 1948 Unknown [id number] 2.16.840.1.923767.3.579.2. 72 1948 Unknown [id number] 2.16.840.1.862816.3.579.2. 72 1948 Unknown [id number] 2.16.840.1.312392.3.579.2. 1948 Unknown [id number] 2.16.840.1.208011.3.579.2. 1948 Unknown [id number] 2.16.840.1.541580.3.579.2. 1948 Unknown [id number] 2.16.840.1.464778.3.579.2. 1948 Unknown [id number] 2.16.840.1.504587.3.579.2 1948 Unknown [id number] 2..840.1.818815.3.579.2 1948 Unknown [id number] 2.16.840.1.054134.3.579.2 1948 Unknown [id number] 2.16.840.1.527942.3.579.2 1948 Unknown [id number] 2.16.840.1.097678.3.579.2 1948 Unknown [id number] 2.16.840.1.302170.3.579.2 1948 Unknown [id number] 2.16.840.1.248492.3.579.2. 1948 Unknown [id number] 2.16.840.1.497042.3.579.2 1948 Unknown [id number] 2.16.840.1.295157.3.579.2 1948 Unknown [id number] 2.16.840.1.367086.3.579.2 1948 Unknown [id number] 2.16.840.1.769568.3.579.2. 727 1948 Unknown [id number] 2.16.840.1.928956.3.579.2. 1948 Unknown [id number] 2.16.840.1.265386.3.579.2. 1948 Unknown [id number] 2.16.840.1.669167.3.579.2 1948 Unknown [id number] 2.16.840.1.010109.3.579.2. 1948 Unknown [id number] 2..840.1.709077.3.579.2 1948 Unknown [id number] 2..840.1.773660.3.579.2 1948 Unknown [id number] 2..840.1.240132.3.579.2 1948 Unknown [id number] 2..840.1.069514.3.579.2 1948 Unknown [id number] 2..840.1.693014.3.579.2 1948 Unknown [id number] 2..840.1.102049.3.579.2 1948 Unknown [id number] 2..840.1.849745.3.579.2 1948 Unknown [id number] 2.16.840.1.460290.3.579.2. 1948 Unknown [id number] 2.16.840.1.890335.3.579.2 1948 Unknown [id number] 2.16.840.1.427363.3.579.2 1948 Unknown [id number] 2.16.840.1.595524.3.579.2 1948 Unknown [id number] 2.840.1.661021.3.579.2. 727 1948 Unknown [id number] 2..840.1.021766.3.579.2. 727 1948 Unknown [id number] 2.840.1.151396.3.579.2. 72 1948 Unknown [id number] 2.840.1.968483.3.579.2. 72 1948 Unknown [id number] 2.840.1.493387.3.579.2. 1948 Unknown [id number] 2.840.1.703425.3.579.2. 1948 Unknown [id number] .0.1.643758.3.579.2. Medicare [id number] Private Health Insurance [facility] Dual Compl [id number] Unknown [place] BC/BS [id number] Unknown [facility] Health Claims [id number] Unknown [id number] Unknown [id number] Unknown [id number] Unknown [id number] Unknown [id number] Unknown [id number] 531 Unknown [id number] 531 Unknown [id number] Unknown [id number] Social History Date Type Detail Facility Start: 05-01-2020 End: 07-06-2024 Tobacco smoking status NHIS Never smoker [facility] Comment on above: son smokes Start: 05-01-2020 End: 10-29-2022 Tobacco use and exposure Never used [facility] Start: 05-01-2020 End: 06-28-2022 Alcohol intake Ex-drinker (finding) [facility] Start: 1950 Sex Assigned At Not on file [facility] Start: 07-07-2021 End: 07-17-2021 Exposure to SARS-CoV-2 (event) Unable to assess [facility] Start: 09-03-2021 End: 02-07-2022 Exposure to SARS-CoV-2 (event) Not sure [facility] Tobacco smoking status Never [facility] Comment on above: son smokes Start: 02-07-2022 End: 02-02-2024 Sex Assigned At Female [facility] Start: 01-18-2020 End: 01-30-2023 Alcohol intake Current non-drinker of alcohol (finding) [facility] Start: 1950 Sex Assigned At Female F [facility] Tobacco [facility] Comment on above: denies denies Start: 05-01-2020 End: 02-02-2024 Cigarette pack-years [facility] Start: 07-05-2023 [facility] Tobacco smoking status No Smokin g Status Entered [facility] Start: 02-02-2024 End: 02-23-2024 Alcoholic beverage intake Lifetime non-drinker (finding) [facility] Goals Date Patient Goal Desired Activity /State Functional Status Date Assessment Result Facility 07-28-2024 Functional Status N/A [facility] 07-25-2024 Functional Status N/A [facility] 07-24-2024 Functional Status N/A [facility] 07-20-2024 Functional Status N/A [facility] 07-12-2024 Functional Status N/A [facility] 07-06-2024 Functional Status N/A [facility] 07-04-2024 Functional Status N/A [facility] 06-20-2024 Functional Status N/A [facility] 06-17-2024 Functional Status N/A [facility] 05-16-2024 Functional Status N/A [facility] 05-10-2024 Functional Status N/A [facility] 05-04-2024 Functional Status N/A [facility] 05-03-2024 Functional Status N/A [facility] 04-28-2024 Functional Status N/A [facility] 04-26-2024 Functional Status N/A [facility] 04-25-2024 Functional Status N/A [facility] 04-21-2024 Functional Status N/A [facility] 04-19-2024 Functional Status N/A [facility] 04-17-2024 Functional Status N/A [facility] 04-14-2024 Functional Status N/A [facility] 04-11-2024 Functional Status N/A [facility] 04-08-2024 Functional Status N/A [facility] 04-07-2024 Functional Status N/A [facility] 04-04-2024 Functional Status N/A [facility] 03-18-2024 Functional Status N/A [facility] 03-14-2024 Functional Status No [facility] 03-14-2024 Functional Status [facility] 03-12-2024 Functional Status N/A [facility] 03-11-2024 Functional Status N/A [facility] 03-09-2024 Functional Status N/A [facility] 02-24-2024 Functional Status N/A [facility] 02-23-2024 Functional Status N/A [facility] 02-06-2024 Functional Status N/A [facility] 01-28-2024 Functional Status N/A [facility] 01-10-2024 Functional Status N/A [facility] 01-02-2024 Functional Status N/A [facility] 09-07-2023 Functional Status No [facility] 09-07-2023 Functional Status [facility] 09-02-2023 Functional status [facility] at [facility] Work Phone: 08-27-2023 Functional Status N/A [facility] 08-21-2023 Functional Status N/A [facility] 08-14-2023 Functional Status N/A [facility] 08-13-2023 Functional Status N/A [facility] 08-12-2023 Functional Status N/A [facility] 08-09-2023 Functional Status N/A [facility] 08-07-2023 Functional Status N/A [facility] 05-26-2023 Functional Status N/A [facility] 02-01-2023 Functional Status N/A [facility] 01-06-2023 Functional Status N/A [facility] 01-04-2023 Functional Status N/A [facility] 12-29-2022 Functional Status N/A [facility] 12-23-2022 Functional Status N/A [facility] 06-11-2022 Functional status [facility] at [facility] Work Phone: 05-24-2022 Functional Status N/A [facility] 05-03-2022 Functional Status N/A [facility] 05-02-2022 Functional Status N/A [facility] 04-25-2022 Functional Status N/A [facility] 04-17-2022 Functional Status Yes [facility] 04-17-2022 Functional Status [facility] 03-04-2022 Functional Status N/A [facility] 02-17-2022 Functional Status N/A [facility] 02-15-2022 Functional Status N/A [facility] 02-13-2022 Functional Status N/A [facility] 02-03-2022 Functional Status No [facility] 02-01-2022 Functional Status N/A [facility] 01-31-2022 Functional Status N/A [facility] 01-30-2022 Functional Status N/A [facility] 01-15-2022 Functional Status N/A [facility] 01-14-2022 N/A [facility] 12-20-2021 Functional Status N/A [facility] 12-16-2021 Functional Status N/A [facility] 12-16-2021 Functional Status [facility] 12-15-2021 Functional Status N/A [facility] 12-14-2021 Functional Status N/A [facility] 12-09-2021 Functional Status N/A [facility] 11-30-2021 Functional Status N/A [facility] 11-23-2021 Functional Status N/A [facility] 11-21-2021 Functional Status N/A [facility] 11-17-2021 Functional Status N/A [facility] 11-16-2021 Functional Status N/A [facility] 11-08-2021 Functional Status N/A [facility] 11-07-2021 Functional Status N/A [facility] 11-06-2021 Functional Status N/A [facility] Mental Status Date Assessment Result Facility 09-02-2023 Cognitive function Cognitive Sta tus Patient at [facility] Work Phone: 06-11-2022 Cognitive function Cognitive Sta tus Patient at [facility] Work Phone: Clinical Notes 09-29-2020 to 07-28-2024 Note Date & Type Note Facility 07-28-2024 Evaluation + Plan note Extrac kenyatta from: Title:ED Note Author:Alvaro BYRD, Rodrigue Bray te:07/28/24 Right rib fracture (S22.31XA : Fracture of one rib, right side, initial encounter for closed fracture) Ordered: acetaminophen-oxycodone, 1 tab(s), Oral, q6hr for pain for 3 day(s), 12 tab(s), Refill(s) 0, [id number], 154, cm, 07/28/24 11:09:00 EST, Height/Length Dosing, 58.1, kg, 07/28/24 11:09:00 EST, Weight Dosing Future Appointments Appointment Date:08/09/2024 01:30:00 PM Scheduled Provider:Scott RAMOS, Elidia Pringle Location:[facility] Appointment Type:BAD New Patient [facility] [id number] Hospital Discharge instructions Patient Education 07/28/2024 11:57:48 Rib Fracture Rib Fracture A rib fracture is a break or crack in one of the bones of the ribs. The ribs are long, curved bonesthat wrap around your chest and attach to your spine and your breastbone. The ribs protect your heart, lungs, and other organs in the chest. A broken or cracked rib is often painful but is not usually serious. Most rib fractures heal on their own over time. However, rib fractures can be more serious if multiple ribs are broken or if broken ribs move out of place and push against other structures or organs. What are the causes? This condition is caused by: Repetitive movements with high force, such as pitching a baseball or having very bad coughing spells. A direct hit the chest, such as a sports injury, a car crash, or a fall. Cancer that has spread to the bones, which can weaken bones and cause them to break. What are the signs or symptoms? Symptoms of this condition include: Pain when you breathe in or cough. Pain when someone presses on the injured area. Feeling short of breath. How is this diagnosed? This condition is diagnosed with a physical exam and medical history. You may also have imaging tests, such as: Chest X-ray. CT scan. MRI. Bone scan. Chest ultrasound. How is this treated? Treatment for this condition depends on the severity of the fracture. Most rib fractures usually heal on their own in 1 3 months. Healing may take longer if you have a cough or if you do activities that make the injury worse. While you heal, you may be given medicines to control the pain. You will also be taught deep breathing exercises. Severe injuries may require hospitalization or surgery. Follow these instructions at home: Managing pain, stiffness, and swelling If directed, put ice on the injured area. To do this: ?Put ice in a plastic bag. ?Place a towel between your skin and the bag. ?Leave the ice on for 20 minutes, 2 3 times a day. ?Remove the ice if your skin turns bright red. This is very important. If you cannot feel pain, heat, or cold, you have a greater risk of damage to the area. Take gvgp-sny-izheojf and prescription medicines only as told by your health care provider. Activity Avoid doing activities or movements that cause pain. Be careful during activities and avoid bumpingthe injured rib. Slowly increase your activity as told by your health care provider. General instructions Do deep breathing exercises as told by your health care provider. This helps prevent pneumonia, which is a common complication of a broken rib. Your health care provider may instruct you to: ?Take deep breaths several times a day. ?Try to cough several times a day, holding a pillow against the injured area. ?Use a device called incentive spirometer to practice deep breathing several times a day. Drink enough fluid to keep your urine pale yellow. Do not wear a rib belt or binder. These restrict breathing, which can lead to pneumonia. Keep all follow-up visits. This is important. Contact a health care provider if: You have a fever. Get help right away if: You have difficulty breathing or you are short of breath. You develop a cough that does not stop, or you cough up thick or bloody sputum. You have nausea, vomiting, or pain in your abdomen. Your pain gets worse and medicine does not help. These symptoms may represent a serious problem that is an emergency. Do not wait to see if the symptoms will go away. Get medical help right away. Call your local emergency services (911 in the [place] Do not drive yourself to the hospital. Summary A rib fracture is a break or crack in one of the bones of the ribs. A broken or cracked rib is often painful but is not usually serious. Most rib fractures heal on their own over time. Treatment for this condition depends on the severity of the fracture. Avoid doing any activities or movements that cause pain. This information is not intended to replace advice given to you by your health care provider. Make sure you discuss any questions you have with your health care provider. Document Revised: 09/01/2020 Document Reviewed: 09/01/2020 [employer] Patient Education 2023 [employer] Follow Up Care 07/28/2024 10:57:29 With:AZUL GORMAN Address: [facility] [place] [address]- Business (1) When:07/31/2024 11:39:21 Comments:Call Dr for diagnosis based follow up [facility] 03-05-2025 NoteED Patient Education Note Orthopedics Rib Fracture A rib fracture is a break or crack in one of the bones of the ribs. The ribs are long, curved bonesthat wrap around your chest and attach to your spine and your breastbone. The ribs protect your heart, lungs, and other organs in the chest. A broken or cracked rib is often painful but is not usually serious. Most rib fractures heal on their own over time. However, rib fractures can be more serious if multiple ribs are broken or if broken ribs move out of place and push against other structures or organs. What are the causes? This condition is caused by: ??? Repetitive movements with high force, such as pitching a baseball or having very bad coughing spells. ??? A direct hit the chest, such as a sports injury, a car crash, or a fall. ??? Cancer that has spread to the bones, which can weaken bones and cause them to break. What are the signs or symptoms? Symptoms of this condition include: ??? Pain when you breathe in or cough. ??? Pain when someone presses on the injured area. ??? Feeling short of breath. How is this diagnosed? This condition is diagnosed with a physical exam and medical history. You may also have imaging tests, such as: ??? Chest X-ray. ??? CT scan. ??? MRI. ??? Bone scan. ??? Chest ultrasound. How is this treated? Treatment for this condition depends on the severity of the fracture. Most rib fractures usually heal on their own in 1?3 months. Healing may take longer if you have a cough or if you do activities that make the injury worse. While you heal, you may be given medicines to control the pain. You will also be taught deep breathing exercises. Severe injuries may require hospitalization or surgery. Follow these instructions at home: Managing pain, stiffness, and swelling ??? If directed, put ice on the injured area. To do this: ? Put ice in a plastic bag. ? Place a towel between your skin and the bag. ? Leave the ice on for 20 minutes, 2?3 times a day. ? Remove the ice if your skin turns bright red. This is very important. If you cannot feel pain, heat, or cold, you have a greater risk of damage to the area. ??? Take pwqf-lyt-uekboqj and prescription medicines only as told by your health care provider. Activity ??? Avoid doing activities or movements that cause pain. Be careful during activities and avoid bumping the injured rib. ??? Slowly increase your activity as told by your health care provider. General instructions ??? Do deep breathing exercises as told by your health care provider. This helps prevent pneumonia,which is a common complication of a broken rib. Your health care provider may instruct you to: ? Take deep breaths several times a day. ? Try to cough several times a day, holding a pillow against the injured area. ? Use a device called incentive spirometer to practice deep breathing several times a day. ??? Drink enough fluid to keep your urine pale yellow. ??? Do not wear a rib belt or binder. These restrict breathing, which can lead to pneumonia. ??? Keep all follow-up visits. This is important. Contact a health care provider if: ??? You have a fever. Get help right away if: ??? You have difficulty breathing or you are short of breath. ??? You develop a cough that does not stop, or you cough up thick or bloody sputum. ??? You have nausea, vomiting, or pain in your abdomen. ??? Your pain gets worse and medicine does not help. These symptoms may represent a serious problem that is an emergency. Do not wait to see if the symptoms will go away. Get medical help right away. Call your local emergency services (911 in the [place] Do not drive yourself to the hospital. Summary ??? A rib fracture is a break or crack in one of the bones of the ribs. ??? A broken or cracked rib is often painful but is not usually serious. ??? Most rib fractures heal on their own over time. ??? Treatment for this condition depends on the severity of the fracture. ??? Avoid doing any activities or movements that cause pain. This information is not intended to replace advice given to you by your health care provider. Make sure you discuss any questions you have with your health care provider. Document Revised: 09/01/2020 Document Reviewed: 09/01/2020 [email or web address] Patient Education ? 2023 [employer] 07-25-2024 Evaluation + Plan noteExtracted from: Title:ED Note Author:Neva Newton, Didier Bray te:07/25/24 1. Fracture of rib of right side (S22.31XA: Fracture of one rib, right side, initial encounter for closed fracture) Orders: morphine, 4 mg = 1 mL, Injection, IntraMuscular, Once, Stop date 07/25/24 10:07:00 EST, STAT, Start date 07/25/24 10:07:00 EST, 07/25/24 10:07:00 EST Bladder Scan UA with Cult Rflx Future Appointments Appointment Date:08/09/2024 01:30:00 PM Scheduled Provider:Scott RAMOS, Elidia Pringle Location[place] App[facility] Type:[facility] New Patient [facility] 03-02-2025 Hospital Discharge instructions Patient Education 07/25/2024 11:40:33 Rib Fracture Rib Fracture A rib fracture is a break or crack in one of the bones of the ribs. The ribs are long, curved bonesthat wrap around your chest and attach to your spine and your breastbone. The ribs protect your heart, lungs, and other organs in the chest. A broken or cracked rib is often painful but is not usually serious. Most rib fractures heal on their own over time. However, rib fractures can be more serious if multiple ribs are broken or if broken ribs move out of place and push against other structures or organs. What are the causes? This condition is caused by: Repetitive movements with high force, such as pitching a baseball or having very bad coughing spells. A direct hit the chest, such as a sports injury, a car crash, or a fall. Cancer that has spread to the bones, which can weaken bones and cause them to break. What are the signs or symptoms? Symptoms of this condition include: Pain when you breathe in or cough. Pain when someone presses on the injured area. Feeling short of breath. How is this diagnosed? This condition is diagnosed with a physical exam and medical history. You may also have imaging tests, such as: Chest X-ray. CT scan. MRI. Bone scan. Chest ultrasound. How is this treated? Treatment for this condition depends on the severity of the fracture. Most rib fractures usually heal on their own in 1 3 months. Healing may take longer if you have a cough or if you do activities that make the injury worse. While you heal, you may be given medicines to control the pain. You will also be taught deep breathing exercises. Severe injuries may require hospitalization or surgery. Follow these instructions at home: Managing pain, stiffness, and swelling If directed, put ice on the injured area. To do this: ?Put ice in a plastic bag. ?Place a towel between your skin and the bag. ?Leave the ice on for 20 minutes, 2 3 times a day. ?Remove the ice if your skin turns bright red. This is very important. If you cannot feel pain, heat, or cold, you have a greater risk of damage to the area. Take kinz-afl-isjdoft and prescription medicines only as told by your health care provider. Activity Avoid doing activities or movements that cause pain. Be careful during activities and avoid bumpingthe injured rib. Slowly increase your activity as told by your health care provider. General instructions Do deep breathing exercises as told by your health care provider. This helps prevent pneumonia, which is a common complication of a broken rib. Your health care provider may instruct you to: ?Take deep breaths several times a day. ?Try to cough several times a day, holding a pillow against the injured area. ?Use a device called incentive spirometer to practice deep breathing several times a day. Drink enough fluid to keep your urine pale yellow. Do not wear a rib belt or binder. These restrict breathing, which can lead to pneumonia. Keep all follow-up visits. This is important. Contact a health care provider if: You have a fever. Get help right away if: You have difficulty breathing or you are short of breath. You develop a cough that does not stop, or you cough up thick or bloody sputum. You have nausea, vomiting, or pain in your abdomen. Your pain gets worse and medicine does not help. These symptoms may represent a serious problem that is an emergency. Do not wait to see if the symptoms will go away. Get medical help right away. Call your local emergency services (911 in the [place] Do not drive yourself to the hospital. Summary A rib fracture is a break or crack in one of the bones of the ribs. A broken or cracked rib is often painful but is not usually serious. Most rib fractures heal on their own over time. Treatment for this condition depends on the severity of the fracture. Avoid doing any activities or movements that cause pain. This information is not intended to replace advice given to you by your health care provider. Make sure you discuss any questions you have with your health care provider. Document Revised: 09/01/2020 Document Reviewed: 09/01/2020 [employer] Patient Education 2023 [employer]. Follow Up Care 07/25/2024 09:27:48 With:AZUL GORMAN Address: [facility] [place] [address] Business (1) When:07/28/2024 11:33:19 Comments:Continue Percocet that was prescribed to you yesterday. Make sure to follow-up with your primary doctor as discussed. Continue the incentive spirometry every 2 hours as instructed. Return to the emergency room if your pain gets worse, shortness of breath, fever or any new symptoms. [facility] 03-02-2025 NoteED Patient Education Note Orthopedics Rib Fracture A rib fracture is a break or crack in one of the bones of the ribs. The ribs are long, curved bonesthat wrap around your chest and attach to your spine and your breastbone. The ribs protect your heart, lungs, and other organs in the chest. A broken or cracked rib is often painful but is not usually serious. Most rib fractures heal on their own over time. However, rib fractures can be more serious if multiple ribs are broken or if broken ribs move out of place and push against other structures or organs. What are the causes? This condition is caused by: ??? Repetitive movements with high force, such as pitching a baseball or having very bad coughing spells. ??? A direct hit the chest, such as a sports injury, a car crash, or a fall. ??? Cancer that has spread to the bones, which can weaken bones and cause them to break. What are the signs or symptoms? Symptoms of this condition include: ??? Pain when you breathe in or cough. ??? Pain when someone presses on the injured area. ??? Feeling short of breath. How is this diagnosed? This condition is diagnosed with a physical exam and medical history. You may also have imaging tests, such as: ??? Chest X-ray. ??? CT scan. ??? MRI. ??? Bone scan. ??? Chest ultrasound. How is this treated? Treatment for this condition depends on the severity of the fracture. Most rib fractures usually heal on their own in 1?3 months. Healing may take longer if you have a cough or if you do activities that make the injury worse. While you heal, you may be given medicines to control the pain. You will also be taught deep breathing exercises. Severe injuries may require hospitalization or surgery. Follow these instructions at home: Managing pain, stiffness, and swelling ??? If directed, put ice on the injured area. To do this: ? Put ice in a plastic bag. ? Place a towel between your skin and the bag. ? Leave the ice on for 20 minutes, 2?3 times a day. ? Remove the ice if your skin turns bright red. This is very important. If you cannot feel pain, heat, or cold, you have a greater risk of damage to the area. ??? Take elfh-muf-maixmad and prescription medicines only as told by your health care provider. Activity ??? Avoid doing activities or movements that cause pain. Be careful during activities and avoid bumping the injured rib. ??? Slowly increase your activity as told by your health care provider. General instructions ??? Do deep breathing exercises as told by your health care provider. This helps prevent pneumonia,which is a common complication of a broken rib. Your health care provider may instruct you to: ? Take deep breaths several times a day. ? Try to cough several times a day, holding a pillow against the injured area. ? Use a device called incentive spirometer to practice deep breathing several times a day. ??? Drink enough fluid to keep your urine pale yellow. ??? Do not wear a rib belt or binder. These restrict breathing, which can lead to pneumonia. ??? Keep all follow-up visits. This is important. Contact a health care provider if: ??? You have a fever. Get help right away if: ??? You have difficulty breathing or you are short of breath. ??? You develop a cough that does not stop, or you cough up thick or bloody sputum. ??? You have nausea, vomiting, or pain in your abdomen. ??? Your pain gets worse and medicine does not help. These symptoms may represent a serious problem that is an emergency. Do not wait to see if the symptoms will go away. Get medical help right away. Call your local emergency services (911 in the [place] Do not drive yourself to the hospital. Summary ??? A rib fracture is a break or crack in one of the bones of the ribs. ??? A broken or cracked rib is often painful but is not usually serious. ??? Most rib fractures heal on their own over time. ??? Treatment for this condition depends on the severity of the fracture. ??? Avoid doing any activities or movements that cause pain. This information is not intended to replace advice given to you by your health care provider. Make sure you discuss any questions you have with your health care provider. Document Revised: 09/01/2020 Document Reviewed: 09/01/2020 [employer] Patient Education ? 2023 [employer].[facility] 07-24-2024 Hospital Discharge instructions Patient Education 07/24/2024 10:03:18 Rib Fracture Rib Fracture A rib fracture is a break or crack in one of the bones of the ribs. The ribs are long, curved bonesthat wrap around your chest and attach to your spine and your breastbone. The ribs protect your heart, lungs, and other organs in the chest. A broken or cracked rib is often painful but is not usually serious. Most rib fractures heal on their own over time. However, rib fractures can be more serious if multiple ribs are broken or if broken ribs move out of place and push against other structures or organs. What are the causes? This condition is caused by: Repetitive movements with high force, such as pitching a baseball or having very bad coughing spells. A direct hit the chest, such as a sports injury, a car crash, or a fall. Cancer that has spread to the bones, which can weaken bones and cause them to break. What are the signs or symptoms? Symptoms of this condition include: Pain when you breathe in or cough. Pain when someone presses on the injured area. Feeling short of breath. How is this diagnosed? This condition is diagnosed with a physical exam and medical history. You may also have imaging tests, such as: Chest X-ray. CT scan. MRI. Bone scan. Chest ultrasound. How is this treated? Treatment for this condition depends on the severity of the fracture. Most rib fractures usually heal on their own in 1 3 months. Healing may take longer if you have a cough or if you do activities that make the injury worse. While you heal, you may be given medicines to control the pain. You will also be taught deep breathing exercises. Severe injuries may require hospitalization or surgery. Follow these instructions at home: Managing pain, stiffness, and swelling If directed, put ice on the injured area. To do this: ?Put ice in a plastic bag. ?Place a towel between your skin and the bag. ?Leave the ice on for 20 minutes, 2 3 times a day. ?Remove the ice if your skin turns bright red. This is very important. If you cannot feel pain, heat, or cold, you have a greater risk of damage to the area. Take ovzi-vqn-mqumbqq and prescription medicines only as told by your health care provider. Activity Avoid doing activities or movements that cause pain. Be careful during activities and avoid bumpingthe injured rib. Slowly increase your activity as told by your health care provider. General instructions Do deep breathing exercises as told by your health care provider. This helps prevent pneumonia, which is a common complication of a broken rib. Your health care provider may instruct you to: ?Take deep breaths several times a day. ?Try to cough several times a day, holding a pillow against the injured area. ?Use a device called incentive spirometer to practice deep breathing several times a day. Drink enough fluid to keep your urine pale yellow. Do not wear a rib belt or binder. These restrict breathing, which can lead to pneumonia. Keep all follow-up visits. This is important. Contact a health care provider if: You have a fever. Get help right away if: You have difficulty breathing or you are short of breath. You develop a cough that does not stop, or you cough up thick or bloody sputum. You have nausea, vomiting, or pain in your abdomen. Your pain gets worse and medicine does not help. These symptoms may represent a serious problem that is an emergency. Do not wait to see if the symptoms will go away. Get medical help right away. Call your local emergency services (911 in the [place] Do not drive yourself to the hospital. Summary A rib fracture is a break or crack in one of the bones of the ribs. A broken or cracked rib is often painful but is not usually serious. Most rib fractures heal on their own over time. Treatment for this condition depends on the severity of the fracture. Avoid doing any activities or movements that cause pain. This information is not intended to replace advice given to you by your health care provider. Make sure you discuss any questions you have with your health care provider. Document Revised: 09/01/2020 Document Reviewed: 09/01/2020 [employer] Patient Education 2023 [employer]. Follow Up Care 07/24/2024 08:43:38 With:AZUL GORMAN Address: [facility] [place] [address] [facility] (1) When:07/27/2024 09:41:37 [facility] 03-01-2025 NoteED Patient Education Note Orthopedics Rib Fracture A rib fracture is a break or crack in one of the bones of the ribs. The ribs are long, curved bonesthat wrap around your chest and attach to your spine and your breastbone. The ribs protect your heart, lungs, and other organs in the chest. A broken or cracked rib is often painful but is not usually serious. Most rib fractures heal on their own over time. However, rib fractures can be more serious if multiple ribs are broken or if broken ribs move out of place and push against other structures or organs. What are the causes? This condition is caused by: ??? Repetitive movements with high force, such as pitching a baseball or having very bad coughing spells. ??? A direct hit the chest, such as a sports injury, a car crash, or a fall. ??? Cancer that has spread to the bones, which can weaken bones and cause them to break. What are the signs or symptoms? Symptoms of this condition include: ??? Pain when you breathe in or cough. ??? Pain when someone presses on the injured area. ??? Feeling short of breath. How is this diagnosed? This condition is diagnosed with a physical exam and medical history. You may also have imaging tests, such as: ??? Chest X-ray. ??? CT scan. ??? MRI. ??? Bone scan. ??? Chest ultrasound. How is this treated? Treatment for this condition depends on the severity of the fracture. Most rib fractures usually heal on their own in 1?3 months. Healing may take longer if you have a cough or if you do activities that make the injury worse. While you heal, you may be given medicines to control the pain. You will also be taught deep breathing exercises. Severe injuries may require hospitalization or surgery. Follow these instructions at home: Managing pain, stiffness, and swelling ??? If directed, put ice on the injured area. To do this: ? Put ice in a plastic bag. ? Place a towel between your skin and the bag. ? Leave the ice on for 20 minutes, 2?3 times a day. ? Remove the ice if your skin turns bright red. This is very important. If you cannot feel pain, heat, or cold, you have a greater risk of damage to the area. ??? Take siva-qop-vdggnfe and prescription medicines only as told by your health care provider. Activity ??? Avoid doing activities or movements that cause pain. Be careful during activities and avoid bumping the injured rib. ??? Slowly increase your activity as told by your health care provider. General instructions ??? Do deep breathing exercises as told by your health care provider. This helps prevent pneumonia,which is a common complication of a broken rib. Your health care provider may instruct you to: ? Take deep breaths several times a day. ? Try to cough several times a day, holding a pillow against the injured area. ? Use a device called incentive spirometer to practice deep breathing several times a day. ??? Drink enough fluid to keep your urine pale yellow. ??? Do not wear a rib belt or binder. These restrict breathing, which can lead to pneumonia. ??? Keep all follow-up visits. This is important. Contact a health care provider if: ??? You have a fever. Get help right away if: ??? You have difficulty breathing or you are short of breath. ??? You develop a cough that does not stop, or you cough up thick or bloody sputum. ??? You have nausea, vomiting, or pain in your abdomen. ??? Your pain gets worse and medicine does not help. These symptoms may represent a serious problem that is an emergency. Do not wait to see if the symptoms will go away. Get medical help right away. Call your local emergency services (911 in the [place] Do not drive yourself to the hospital. Summary ??? A rib fracture is a break or crack in one of the bones of the ribs. ??? A broken or cracked rib is often painful but is not usually serious. ??? Most rib fractures heal on their own over time. ??? Treatment for this condition depends on the severity of the fracture. ??? Avoid doing any activities or movements that cause pain. This information is not intended to replace advice given to you by your health care provider. Make sure you discuss any questions you have with your health care provider. Document Revised: 09/01/2020 Document Reviewed: 09/01/2020 [email or web address] Patient Education ? 2023 [employer].[facility] 07-20-2024 Evaluation + Plan noteExtracted from: Title:ED Note Author:Demetris GO Johny BarkerKaran Date: Acute upper abdominal pain ( R10.10: Upper abdominal pain, unspecified) Orders: Basic Metabolic Panel CBC w/ Auto Diff CT Abdomen/Pelvis w/ Contrast ECG 12 Lead Adult eGFR Extra Blue Tube Extra SST Tube Hepatic Function Panel Lipase Level Troponin 0 Hr. UA with Cult Rflx Addendum by Malick Ho PA-C on July 20, 2024 07:25:32 EST Patient was signed out by the previous provider. I reviewed the workup to evaluate the patient. Laboratory studies are grossly stable. CT scan of the abdomen shows no acute findings. Patient was sleeping upon repeat evaluation. She was easily arousable. She has stable vital signs. Abdomen is soft throughout with no reproducible tenderness. Had a longstanding history of chronic abdominal pain with no acute findings today. Safe for discharge home. Patient was encouraged to return to the ED if symptoms worsen or change. Future Appointments Appointment Date:08/09/2024 01:30:00 PM Scheduled Provider:Elidia Chavez MD Location:[facility] App[facility] Type:BADH New Patient [facility] 02-25-2025 Hospital Discharge instructions Patient Education 07/20/2024 07:51:29 Abdominal Pain, Adult Abdominal Pain, Adult Pain in the abdomen (abdominal pain) can be caused by many things. In most cases, it gets better with no treatment or by being treated at home. But in some cases, it can be serious. Your health care provider will ask questions about your medical history and do a physical exam to try to figure out what is causing your pain. Follow these instructions at home: Medicines Take zlks-vaj-svyoiet and prescription medicines only as told by your provider. Do not take medicines that help you poop (laxatives) unless told by your provider. General instructions Watch your condition for any changes. Drink enough fluid to keep your pee (urine) pale yellow. Contact a health care provider if: Your pain changes, gets worse, or lasts longer than expected. You have severe cramping or bloating in your abdomen, or you vomit. Your pain gets worse with meals, after eating, or with certain foods. You are constipated or have diarrhea for more than 2 3 days. You are not hungry, or you lose weight without trying. You have signs of dehydration. These may include: ?Dark pee, very little pee, or no pee. ?Cracked lips or dry mouth. ?Sleepiness or weakness. You have pain when you pee (urinate) or poop. Your abdominal pain wakes you up at night. You have blood in your pee. You have a fever. Get help right away if: You cannot stop vomiting. Your pain is only in one part of the abdomen. Pain on the right side could be caused by appendicitis. You have bloody or black poop (stool), or poop that looks like tar. You have trouble breathing. You have chest pain. These symptoms may be an emergency. Get help right away. Call 911. Do not wait to see if the symptoms will go away. Do not drive yourself to the hospital. This information is not intended to replace advice given to you by your health care provider. Make sure you discuss any questions you have with your health care provider. Document Revised: 02/26/2023 Document Reviewed: 02/26/2023 [employer] Patient Education 2023 [employer]. Follow Up Care 07/20/2024 04:46:17 With:AZUL GORMAN Address: [place] [address] Business (1) When:07/23/2024 07:35:12 [facility] 02-25-2025 NoteED Patient Education Note Gastroenterology Abdominal Pain, Adult Pain in the abdomen (abdominal pain) can be caused by many things. In most cases, it gets better with no treatment or by being treated at home. But in some cases, it can be serious. Your health care provider will ask questions about your medical history and do a physical exam to try to figure out what is causing your pain. Follow these instructions at home: Medicines ??? Take ohxf-fgt-hwflcjo and prescription medicines only as told by your provider. ??? Do not take medicines that help you poop (laxatives) unless told by your provider. General instructions ??? Watch your condition for any changes. ??? Drink enough fluid to keep your pee (urine) pale yellow. Contact a health care provider if: ??? Your pain changes, gets worse, or lasts longer than expected. ??? You have severe cramping or bloating in your abdomen, or you vomit. ??? Your pain gets worse with meals, after eating, or with certain foods. ??? You are constipated or have diarrhea for more than 2?3 days. ??? You are not hungry, or you lose weight without trying. ??? You have signs of dehydration. These may include: ? Dark pee, very little pee, or no pee. ? Cracked lips or dry mouth. ? Sleepiness or weakness. ??? You have pain when you pee (urinate) or poop. ??? Your abdominal pain wakes you up at night. ??? You have blood in your pee. ??? You have a fever. Get help right away if: ??? You cannot stop vomiting. ??? Your pain is only in one part of the abdomen. Pain on the right side could be caused by appendicitis. ??? You have bloody or black poop (stool), or poop that looks like tar. ??? You have trouble breathing. ??? You have chest pain. These symptoms may be an emergency. Get help right away. Call 911. ??? Do not wait to see if the symptoms will go away. ??? Do not drive yourself to the hospital. This information is not intended to replace advice given to you by your health care provider. Make sure you discuss any questions you have with your health care provider. Document Revised: 02/26/2023 Document Reviewed: 02/26/2023 [email or web address] Patient Education ? 2023 [employer].[facility] 07-12-2024 Hospital Discharge instructions Patient Education 07/12/2024 13:43:56 Dysuria Dysuria Dysuria is pain or discomfort [...] Follow these instructions at home: Medicines Take hxer-maf-ujxwaqp and prescription medicines only as told by [...] provider. Document Revised: 12/22/2020 Document Reviewed: 12/22/2020 [email or web address] Patient Education 2023 [employer]. Follow Up Care 07/12/2024 12:43:36 With:Albino TORRES Address: [address] [place] [address] Business (1) When:07/15/2024 13:33:18 With:AZUL GORMAN Address: [place] [address] Business (1) When:07/15/2024 13:33:12 Comments:Call Dr for diagnosis based follow up [facility] 02-17-2025 NoteED Patient Education Note Urology Dysuria Dysuria is pain or discomfort during [...] be caused by many different things, including: ??? Urinary tract infection. ??? Kidney stones or bladder stones. ??? Certain STIs (sexually transmitted infections), such as chlamydia. ??? Dehydration. ??? Inflammation of the tissues of the vagina. ??? Use of certain medicines. ??? Use of certain soaps or scented products that cause irritation. Follow these instructions at home: Medicines ??? Take xqrf-lap-tgfesdd and prescription medicines only as told by your health care provider. ??? If you were prescribed an antibiotic medicine, take it as told by your health care provider. Donot stop taking the antibiotic even if you start to feel better. Eating and drinking ??? Drink enough fluid to keep your urine pale yellow. ??? Avoid caffeinated beverages, tea, and alcohol. These beverages can irritate the bladder and make dysuria worse. In males, alcohol may irritate the prostate. General instructions ??? Watch your condition for any changes. ??? Urinate often. Avoid holding urine for long periods of time. ??? If you are female, you should wipe from front to back after urinating or having a bowel movement. Use each piece of toilet paper only once. ??? Empty your bladder after sex. ??? Keep all follow-up visits. This is important. ??? If you had any tests done to find the cause of dysuria, it is up to you to get your test results. Ask your health care provider, or the department that is doing the test, when your results will be ready. Contact a health care provider if: ??? You have a fever. ??? You develop pain in your back or sides. ??? You have nausea or vomiting. ??? You have blood in your urine. ??? You are not urinating as often as you usually do. Get help right away if: ??? Your pain is severe and not relieved with medicines. ??? You cannot eat or drink without vomiting. ??? You are confused. ??? You have a rapid heartbeat while resting. ??? You have shaking or chills. ??? You feel extremely weak. Summary ??? Dysuria is pain or discomfort while urinating. Many different conditions can lead to dysuria. ??? If you have dysuria, you may have to urinate frequently or have the sudden feeling that you have to urinate (urgency). ??? Watch your condition for any changes. Keep all follow-up visits. ??? Make sure that you urinate often and drink enough fluid to keep your urine pale yellow. This information is not intended to replace advice given to you by your health care provider. Make sure you discuss any questions you have with your health care provider. Document Revised: 12/22/2020 Document Reviewed: 12/22/2020 [email or web address] Patient Education ? 2023 [employer].[facility] 07-06-2024 Hospital Discharge instructions Patient Education 07/06/2024 19:13:30 Urinary Tract Infection, Adult Urinary Tract Infection, [...] Treatment for this condition includes: Antibiotic medicine. Feld-yml-tuwqklp medicines to treat discomfort. Drinking enough water [...] Follow these instructions at home: Medicines Take bcdv-ggr-rltgrpc and prescription medicines only as told by [...] with your health care provider. Document Revised: 12/17/2020 Document Reviewed: 12/22/2020 [employer] Patient Education 2023 [employer] 07/06/2024 19:13:26 Neurogenic Bladder Neurogenic Bladder Neurogenic bladder is [...] your health care provider. General instructions Take wend-yxd-xjharcn and prescription medicines only as told by [...] provider. Document Revised: 01/25/2021 Document Reviewed: 01/25/2021 [employer] Patient Education 2023 [employer]. Follow Up Care 06/22/2024 16:16:13 With:Luz Elena Gunn PA-C, LORIE Address: When: Unknown Comments:F/U in 3 months w/ [facility] 02-11-2025 NotePatient Education Obstetrics and Gynecology Urinary Tract Infection, Adult A urinary tract [...] more likely to develop this condition if: ??? You have a urinary catheter that stays in place. ??? You are not able to control when you urinate or have a bowel movement (incontinence). ??? You are female and you: ? Use a spermicide or diaphragm for control. ? Have low estrogen levels. ? Are . ??? You have certain genes that increase your risk. ??? You are sexually active. ??? You take antibiotic medicines. ??? You have a condition that causes your flow of urine to slow down, such as: ? An enlarged prostate, if you are male. ? Blockage in your urethra. ? A kidney stone. ? A nerve condition that affects your bladder control (neurogenic bladder). ? Not getting enough to drink, or not urinating often. ??? You have certain medical conditions, such as: ? Diabetes. ? A weak disease-fighting system (immunesystem). ? Sickle cell disease. ? Gout. ? Spinal cord injury. What are the signs or symptoms? Symptoms of this condition include: ??? Needing to urinate right away (urgency). ??? Frequent urination. This may include small amounts of urine each time you urinate. ??? Pain or burning with urination. ??? Blood in the urine. ??? Urine that smells bad or unusual. ??? Trouble urinating. ??? Cloudy urine. ??? Vaginal discharge, if you are female. ??? Pain in the abdomen or the lower back. You may also have: ??? Vomiting or a decreased appetite. ??? Confusion. ??? Irritability or tiredness. ??? A fever or chills. ??? Diarrhea. The first symptom in older adults may be confusion. In some cases, they may not have any symptoms until the infection has worsened. How is this diagnosed? This condition is diagnosed based on your medical history and a physical exam. You may also have other tests, including: ??? Urine tests. ??? Blood tests. ??? Tests for STIs (sexually transmitted infections). If you have had more than one UTI, a cystoscopy or imaging studies may be done to determine the cause of the infections. How is this treated? Treatment for this condition includes: ??? Antibiotic medicine. ??? Cmny-dmt-kvdrhdt medicines to treat discomfort. ??? Drinking enough water to stay hydrated. If [...] medicines. Follow these instructions at home: Medicines ??? Take owvf-eps-zhdlkuw and prescription medicines only as told by your health care provider. ??? If you were prescribed an antibiotic medicine, take it as told by your health care provider. Donot stop using the antibiotic even if you start to feel better. General instructions ??? Make sure you: ? Empty your bladder often and completely. Do not hold urine for long periods of time. ? Empty your bladder after sex. ? Wipe from front to back after urinating or having a bowel movement if you are female. Use each tissue only one time when you wipe. ??? Drink enough fluid to keep your urine pale yellow. ??? Keep all follow-up visits. This is important. Contact a health care provider if: ??? Your symptoms do not get better after 1?2 days. ??? Your symptoms go away and then return. Get help right away if: ??? You have severe pain in your back or your lower abdomen. ??? You have a fever or chills. ??? You have nausea or vomiting. Summary ??? A urinary tract infection (UTI) is an infection of any part of the urinary tract, which includes the kidneys, ureters, bladder, and urethra. ??? Most urinary tract infections are caused by bacteria in your genital area. ??? Treatment for this condition often includes antibiotic medicines. ??? If you were prescribed an antibiotic medicine, take it as told by your health care provider. Donot stop using the antibiotic even if you start to feel better. ??? Keep all follow-up visits. This is important. This information is not intended to replace advice given to you by your health care provider. Make sure you di (more content not included)...[facility]02-09-2025 Evaluation + Plan noteExtracted from: Title:ED Note Author:Kye Nicole DO Date:07/04/24 Suprapubic pain (R10.2: Pelv ic and perineal pain) UTI symptoms (R39.9: Unspecified symptoms and signs involving the genitourinary system) Orders: ketorolac, 15 mg = 1 mL, Injection, IV Push, Once, Stop date 07/04/24 8:52:00 EST, STAT, Start date 07/04/24 8:52:00 EST, 07/04/24 8:52:00 EST sulfamethoxazole-trimethoprim, 1 tab(s), Tab, Oral, Once, Stop date 07/04/24 8:52:00 EST, STAT, Start date 07/04/24 8:52:00 EST sulfamethoxazole-trimethoprim, 1 tab(s), Oral, BID for 7 day(s), 14 tab(s), Refill(s) 0, [id number], 154.9, cm, 07/04/24 7:08:00 EST, Height/Length Dosing, 63, kg, 07/04/24 7:08:00 EST, Weight Dosing Bladder Scan CBC w/ Auto Diff Comprehensive Metabolic Panel CT Abdomen/Pelvis w/ Contrast ECG 12 Lead Adult eGFR Lipase Level UA with Cult Rflx Urine Culture Future Appointments Appointment Date:07/06/2024 01:30:00 PM Scheduled Provider:Luz Elena Gunn PA-C Location:[facility] Appointment Type:URO New Patient Diagnostic Tests Pending * Urine Culture 07/04/24 [facility] 02-09-2025 Hospital Discharge instructions Patient Education 07/04/2024 09:16:24 Urinary Tract Infection, Adult Urinary Tract Infection, [...] Treatment for this condition includes: Antibiotic medicine. Rpyl-vjb-mrzmoyu medicines to treat discomfort. Drinking enough water [...] Follow these instructions at home: Medicines Take msvz-wbs-xskpyzz and prescription medicines only as told by [...] with your health care provider. Document Revised: 12/17/2020 Document Reviewed: 12/22/2020 [employer] Patient Education 2023 [employer]. Follow Up Care 07/04/2024 06:55:16 With:AZUL GORMAN Address: [address] [place] [address] [facility] (1) When:07/07/2024 08:55:41 Comments:Please follow-up with your primary provider in the coming days for repeat evaluation take the antibiotics as directed alternate Tylenol Motrin as needed for mild to moderate pain should you been experiencing fevers pain out of proportion nausea vomiting symptoms concerning to call 911 or return to the nearest emergency department immediately. [facility] 02-09-2025 NoteED Patient Education Note Obstetrics and Gynecology Urinary Tract Infection, Adult A urinary tract [...] more likely to develop this condition if: ??? You have a urinary catheter that stays in place. ??? You are not able to control when you urinate or have a bowel movement (incontinence). ??? You are female and you: ? Use a spermicide or diaphragm for control. ? Have low estrogen levels. ? Are . ??? You have certain genes that increase your risk. ??? You are sexually active. ??? You take antibiotic medicines. ??? You have a condition that causes your flow of urine to slow down, such as: ? An enlarged prostate, if you are male. ? Blockage in your urethra. ? A kidney stone. ? A nerve condition that affects your bladder control (neurogenic bladder). ? Not getting enough to drink, or not urinating often. ??? You have certain medical conditions, such as: ? Diabetes. ? A weak disease-fighting system (immunesystem). ? Sickle cell disease. ? Gout. ? Spinal cord injury. What are the signs or symptoms? Symptoms of this condition include: ??? Needing to urinate right away (urgency). ??? Frequent urination. This may include small amounts of urine each time you urinate. ??? Pain or burning with urination. ??? Blood in the urine. ??? Urine that smells bad or unusual. ??? Trouble urinating. ??? Cloudy urine. ??? Vaginal discharge, if you are female. ??? Pain in the abdomen or the lower back. You may also have: ??? Vomiting or a decreased appetite. ??? Confusion. ??? Irritability or tiredness. ??? A fever or chills. ??? Diarrhea. The first symptom in older adults may be confusion. In some cases, they may not have any symptoms until the infection has worsened. How is this diagnosed? This condition is diagnosed based on your medical history and a physical exam. You may also have other tests, including: ??? Urine tests. ??? Blood tests. ??? Tests for STIs (sexually transmitted infections). If you have had more than one UTI, a cystoscopy or imaging studies may be done to determine the cause of the infections. How is this treated? Treatment for this condition includes: ??? Antibiotic medicine. ??? Nfyu-wyj-nmazdap medicines to treat discomfort. ??? Drinking enough water to stay hydrated. If [...] medicines. Follow these instructions at home: Medicines ??? Take amlb-grj-dkprgpa and prescription medicines only as told by your health care provider. ??? If you were prescribed an antibiotic medicine, take it as told by your health care provider. Donot stop using the antibiotic even if you start to feel better. General instructions ??? Make sure you: ? Empty your bladder often and completely. Do not hold urine for long periods of time. ? Empty your bladder after sex. ? Wipe from front to back after urinating or having a bowel movement if you are female. Use each tissue only one time when you wipe. ??? Drink enough fluid to keep your urine pale yellow. ??? Keep all follow-up visits. This is important. Contact a health care provider if: ??? Your symptoms do not get better after 1?2 days. ??? Your symptoms go away and then return. Get help right away if: ??? You have severe pain in your back or your lower abdomen. ??? You have a fever or chills. ??? You have nausea or vomiting. Summary ??? A urinary tract infection (UTI) is an infection of any part of the urinary tract, which includes the kidneys, ureters, bladder, and urethra. ??? Most urinary tract infections are caused by bacteria in your genital area. ??? Treatment for this condition often includes antibiotic medicines. ??? If you were prescribed an antibiotic medicine, take it as told by your health care provider. Donot stop using the antibiotic even if you start to feel better. ??? Keep all follow-up visits. This is important. This information is not intended to replace advice given to you by your health care provider. Make zach (more content not included)...[facility]01-26-2025 Hospital Discharge instructions Patient Education 06/20/2024 14:43:42 Medical Screening Exam Medical Screening Exam A medical screening exam (MSE) helps to determine whether you need immediate medical treatment relating to any number of symptoms you are having. This type of exam may be done in an emergency department, an urgent care setting, or your health care provider's office. Depending on your symptoms and severity, you may need additional tests or medical therapy. It is important to note that an MSE does not necessarily mean that you will need or receive furthermedical testing or interventions if your symptoms are not deemed to be medically urgent (emergent). Tell a health care provider about: Any allergies you have. All medicines you are taking, including vitamins, herbs, eye drops, creams, and lyic-dws-fciuofs medicines. Any problems you or family members have had with anesthetic medicines. Any bleeding problems you have. Any surgeries you have had. Any medical conditions you have. Whether you are or may be . What happens during the test? During the exam, a health care provider does a short, often focused, physical exam and asks about your medical history to assess: Your current symptoms. Your overall health. Your need for possible further medical intervention. What can I expect after the test? If you have a regular health care provider, make an appointment for a follow-up visit with him or her. If you do not have a regular health care provider, ask about resources in your community. Your medical screening exam may determine that: You do not need emergency treatment at this time. You need treatment right away. You need to be transferred to another medical center. This may happen if you need an emergent specialist or informatics consultant that is not available at the medical center you are at. You need to have more tests. A territory sales manager medical may be consulted if needed. Get help right away if: Your condition gets worse. You develop new or troubling symptoms before you see your health care provider. These symptoms may represent a serious problem that is an emergency. Do not wait to see if the symptoms will go away. Get medical help right away. Call your local emergency services (911 in the [place] Do not drive yourself to the hospital. Summary A medical screening exam helps to determine whether you need medical treatment right away. This type of exam may be done in an emergency department, an urgent care setting, or your health care provider's office. During the exam, a health care provider does a short physical exam and asks about your current symptoms and overall health. Depending on the exam, more tests or therapies may be ordered. However, an MSE does not necessarilymean that you will have further medical testing if your symptoms are not deemed to be urgent. If you need further care that is not offered at your current medical center, you may need to be transferred to another facility. This information is not intended to replace advice given to you by your health care provider. Make sure you discuss any questions you have with your health care provider. Document Revised: 01/23/2022 Document Reviewed: 09/20/2021 [employer] Patient Education 2023 [employer]id. Follow Up Care 06/20/2024 11:47:07 With:AZUL GORMAN Address: [facility] [place] [address] Business (1) When:06/23/2024 14:43:08 Comments:Call the office of your primary care [...] you develop any new or worsening symptoms. [facility] 01-26-2025 NoteED Patient Education Note Emergency Medicine Medical Screening Exam A medical screening exam (MSE) helps to determine whether you need immediate medical treatment relating to any number of symptoms you are having. This type of exam may be done in an emergency department, an urgent care setting, or your health care provider's office. Depending on your symptoms and severity, you may need additional tests or medical therapy. It is important to note that an MSE does not necessarily mean that you will need or receive furthermedical testing or interventions if your symptoms are not deemed to be medically urgent (emergent). Tell a health care provider about: ??? Any allergies you have. ??? All medicines you are taking, including vitamins, herbs, eye drops, creams, and ldow-yio-fukiicm medicines. ??? Any problems you or family members have had with anesthetic medicines. ??? Any bleeding problems you have. ??? Any surgeries you have had. ??? Any medical conditions you have. ??? Whether you are or may be . What happens during the test? During the exam, a health care provider does a short, often focused, physical exam and asks about your medical history to assess: ??? Your current symptoms. ??? Your overall health. ??? Your need for possible further medical intervention. What can I expect after the test? If you have a regular health care provider, make an appointment for a follow-up visit with him or her. If you do not have a regular health care provider, ask about resources in your community. Your medical screening exam may determine that: ??? You do not need emergency treatment at this time. ??? You need treatment right away. ??? You need to be transferred to another medical center. This may happen if you need an emergent specialist or informatics consultant that is not available at the medical center you are at. ??? You need to have more tests. A territory sales manager medical may be consulted if needed. Get help right away if: ??? Your condition gets worse. ??? You develop new or troubling symptoms before you see your health care provider. These symptoms may represent a serious problem that is an emergency. Do not wait to see if the symptoms will go away. Get medical help right away. Call your local emergency services (911 in the [place] Do not drive yourself to the hospital. Summary ??? A medical screening exam helps to determine whether you need medical treatment right away. Thistype of exam may be done in an emergency department, an urgent care setting, or your health care provider's office. ??? During the exam, a health care provider does a short physical exam and asks about your current symptoms and overall health. ??? Depending on the exam, more tests or therapies may be ordered. However, an MSE does not necessarily mean that you will have further medical testing if your symptoms are not deemed to be urgent. ??? If you need further care that is not offered at your current medical center, you may need to betransferred to another facility. This information is not intended to replace advice given to you by your health care provider. Make sure you discuss any questions you have with your health care provider. Document Revised: 01/23/2022 Document Reviewed: 09/20/2021 [employer] Patient Education ? 2023 FedBid.[facility] 06-20-2024 Evaluation + Plan noteExtracted from: Title:ED Note Author:Johny Willson DO Date: Dysuria (R30.0: Dysuria) Orders: Basic Metabolic Panel CBC w/ Auto Diff eGFR Extra Blue Tube Extra SST Tube UA with Cult Rflx Urine Culture Diagnostic Tests Pending * Urine Culture 06/20/24 [facility] 01-24-2025 NotePatient Education Obstetrics and Gynecology Urinary Tract Infection, Adult A urinary tract [...] more likely to develop this condition if: ??? You have a urinary catheter that stays in place. ??? You are not able to control when you urinate or have a bowel movement (incontinence). ??? You are female and you: ? Use a spermicide or diaphragm for control. ? Have low estrogen levels. ? Are . ??? You have certain genes that increase your risk. ??? You are sexually active. ??? You take antibiotic medicines. ??? You have a condition that causes your flow of urine to slow down, such as: ? An enlarged prostate, if you are male. ? Blockage in your urethra. ? A kidney stone. ? A nerve condition that affects your bladder control (neurogenic bladder). ? Not getting enough to drink, or not urinating often. ??? You have certain medical conditions, such as: ? Diabetes. ? A weak disease-fighting system (immunesystem). ? Sickle cell disease. ? Gout. ? Spinal cord injury. What are the signs or symptoms? Symptoms of this condition include: ??? Needing to urinate right away (urgency). ??? Frequent urination. This may include small amounts of urine each time you urinate. ??? Pain or burning with urination. ??? Blood in the urine. ??? Urine that smells bad or unusual. ??? Trouble urinating. ??? Cloudy urine. ??? Vaginal discharge, if you are female. ??? Pain in the abdomen or the lower back. You may also have: ??? Vomiting or a decreased appetite. ??? Confusion. ??? Irritability or tiredness. ??? A fever or chills. ??? Diarrhea. The first symptom in older adults may be confusion. In some cases, they may not have any symptoms until the infection has worsened. How is this diagnosed? This condition is diagnosed based on your medical history and a physical exam. You may also have other tests, including: ??? Urine tests. ??? Blood tests. ??? Tests for STIs (sexually transmitted infections). If you have had more than one UTI, a cystoscopy or imaging studies may be done to determine the cause of the infections. How is this treated? Treatment for this condition includes: ??? Antibiotic medicine. ??? Ugif-ozx-qkdmqll medicines to treat discomfort. ??? Drinking enough water to stay hydrated. If [...] medicines. Follow these instructions at home: Medicines ??? Take wdtk-twe-ovtqdqj and prescription medicines only as told by your health care provider. ??? If you were prescribed an antibiotic medicine, take it as told by your health care provider. Donot stop using the antibiotic even if you start to feel better. General instructions ??? Make sure you: ? Empty your bladder often and completely. Do not hold urine for long periods of time. ? Empty your bladder after sex. ? Wipe from front to back after urinating or having a bowel movement if you are female. Use each tissue only one time when you wipe. ??? Drink enough fluid to keep your urine pale yellow. ??? Keep all follow-up visits. This is important. Contact a health care provider if: ??? Your symptoms do not get better after 1?2 days. ??? Your symptoms go away and then return. Get help right away if: ??? You have severe pain in your back or your lower abdomen. ??? You have a fever or chills. ??? You have nausea or vomiting. Summary ??? A urinary tract infection (UTI) is an infection of any part of the urinary tract, which includes the kidneys, ureters, bladder, and urethra. ??? Most urinary tract infections are caused by bacteria in your genital area. ??? Treatment for this condition often includes antibiotic medicines. ??? If you were prescribed an antibiotic medicine, take it as told by your health care provider. Donot stop using the antibiotic even if you start to feel better. ??? Keep all follow-up visits. This is important. This information is not intended to replace advice given to you by your health care provider. Make sure you di (more content not included)...[facility]01-23-2025 Evaluation + Plan note Diagnostic Tests Pending * Urine Culture 06/17/24 [facility] 01-23-2025 Hospital Discharge instructions Follow Up Care 06/17/2024 08:46:13 With:AZUL GORMAN CNP Address: [address] [place] [address] [place] [address]- When: Unknown [facility] 12-22-2024 Hospital Discharge instructions Patient Education 05/16/2024 16:00:11 Nausea and Vomiting, Adult Nausea and Vomiting, Adult Nausea is the feeling that you have an upset stomach or that you are about to vomit. As nausea getsworse, it can lead to vomiting. Vomiting is when stomach contents forcefully come out of your mouthas a result of nausea. Vomiting can make [...] Tell your health care provider about them. Eating and drinking Take an oral rehydration solution (ORS). This is a drink that is sold at pharmacies and retail stores. Drink clear fluids slowly and in small amounts as you are able. Clear fluids include water, ice chips, low-calorie sports drinks, and fruit juice that has water added (diluted fruit juice). Eat bland, kzik-wm-heeejn foods in small amounts as you are able. These foods include bananas, applesauce, rice, lean meats, toast, and crackers. Avoid fluids that contain a lot of sugar or caffeine, such as energy drinks, sports drinks, and soda. Avoid alcohol. Avoid spicy or fatty foods. General instructions Take atbw-gko-musuixj and prescription medicines only as told by your health care provider. Drink enough fluid to keep your urine pale yellow. Wash your hands often using soap and water for at least 20 seconds. If soap and water are not available, use hand short order cook. Make sure that everyone in your household washes their hands well and often. Rest at home while you recover. Watch your condition for any changes. Take slow and deep breaths when you feel nauseous. Keep all follow-up visits. This is important. [...] grounds. You have bloody or black stools (feces) or stools that look like tar. You [...] ?Sunken eyes. ?Sleepiness. ?Weakness. These symptoms may be an emergency. Get [...] eating and drinking to prevent dehydration. Take zhpq-hwn-tlnjqkd and prescription medicines only as told by your health care provider. Contact your health care provider if your symptoms get worse, or you have new symptoms. Keep all follow-up visits. This is important. This information is not intended to replace advice given to you by your health care provider. Make sure you discuss any questions you have with your health care provider. Document Revised: 11/16/2021 Document Reviewed: 11/16/2021 [employer] Patient Education 2023 [employer] Follow Up Care 05/16/2024 12:49:37 With:[facility] Address: [address] [place] [address] Business (1) When:05/19/2024 15:08:40 [facility] 12-22-2024 NoteED Patient Education Note Gastroenterology Nausea and Vomiting, Adult Nausea is the feeling that you have an upset stomach or that you are about to vomit. As nausea getsworse, it can lead to vomiting. Vomiting is when stomach contents forcefully come out of your mouthas a result of nausea. Vomiting can make [...] Tell your health care provider about them. Eating and drinking ??? Take an oral rehydration solution (ORS). This is a drink that is sold at pharmacies and retail stores. ??? Drink clear fluids slowly and in small amounts as you are able. Clear fluids include water, icechips, low-calorie sports drinks, and fruit juice that has water added (diluted fruit juice). ??? Eat bland, tkrn-gu-fyzeom foods in small amounts as you are able. These foods include bananas, applesauce, rice, lean meats, toast, and crackers. ??? Avoid fluids that contain a lot of sugar or caffeine, such as energy drinks, sports drinks, andsoda. ??? Avoid alcohol. ??? Avoid spicy or fatty foods. General instructions ??? Take ubcp-zco-vcgcqdl and prescription medicines only as told by your health care provider. ??? Drink enough fluid to keep your urine pale yellow. ??? Wash your hands often using soap and water for at least 20 seconds. If soap and water are not available, use hand short order cook. ??? Make sure that everyone in your household washes their hands well and often. ??? Rest at home while you recover. ??? Watch your condition for any changes. ??? Take slow and deep breaths when you feel nauseous. ??? Keep all follow-up visits. This is important. Contact a health care provider if: ??? Your symptoms get worse. ??? You have new symptoms. ??? You have a fever. ??? You cannot drink fluids without vomiting. ??? Your nausea does not go away after 2 days. ??? You feel light-headed or dizzy. ??? You have a headache. ??? You have muscle cramps. ??? You have a rash. ??? You have pain while urinating. Get help right away if: ??? You have pain in your chest, neck, arm, or jaw. ??? You feel extremely weak or you faint. ??? You have persistent vomiting. ??? You have vomit that is bright red or looks like black coffee grounds. ??? You have bloody or black stools (feces) or stools that look like tar. ??? You have a severe headache, a stiff neck, or both. ??? You have severe pain, cramping, or bloating in your abdomen. ??? You have difficulty breathing, or you are breathing very quickly. ??? Your heart is beating very quickly. ??? Your skin feels cold and clammy. ??? You feel confused. ??? You have signs of dehydration, such as: ? Dark urine, very little urine, or no urine. ? Cracked lips. ? Dry mouth. ? Sunken eyes. ? Sleepiness. ? Weakness. These symptoms may be an emergency. Get help right away. Call 911. ??? Do not wait to see if the symptoms will go away. ??? Do not drive yourself to the hospital. Summary ??? Nausea is the feeling that you have an upset stomach or that you are about to vomit. As nausea gets worse, it can lead to vomiting. Vomiting can make you feel weak and cause you to become dehydrated. ??? Follow instructions from your health care provider about eating and drinking to prevent dehydration. ??? Take okfy-cqd-mczinwl and prescription medicines only as told by your health care provider. ??? Contact your health care provider if your symptoms get worse, or you have new symptoms. ??? Keep all follow-up visits. This is important. This information is not intended to replace advice given to you by your health care provider. Make sure you discuss any questions you have with your health care provider. Document Revised: 11/16/2021 Document Reviewed: 11/16/2021 [employer] Patient Education ? 2023 [employer].[facility] 05-16-2024 Evaluation + Plan noteExtracted from: Title:ED Note Author:Jose Daniel PA-C te:05/16/24 Abdominal pain (R10.9: Unspe cified abdominal pain) Constipation (K59.00: Constipation, unspecified) Nausea & vomiting (R11.2: Nausea with vomiting, unspecified) Shortness of breath (R06.02: Shortness of breath) Orders: ondansetron, 4 mg = 1 tab(s), Oral, q6hr, PRN Nausea/Vomiting, # 12 tab(s), Refills(s) 0, Pharmacy: [facility]/pharmacy #[id number], 154, cm, 05/16/24 12:57:00 EST, Height/Length Dosing, 62.3, kg, 05/16/24 12:57:00 EST, Weight Dosing ondansetron, 4 mg = 2 mL, Injection, IV Push, Once, Stop date 05/16/24 13:17:00 EST, STAT, Start date 05/16/24 13:17:00 EST, 05/16/24 13:17:00 EST Basic Metabolic Panel CBC w/ Auto Diff CT Abdomen/Pelvis w/ Contrast ECG 12 Lead Adult eGFR Hepatic Function Panel Lipase Level Troponin 0 Hr. UA with Cult Rflx XR Chest Single View [facility] 12-16-2024 Hospital Discharge instructions Patient Education 05/10/2024 19:36:16 Abdominal Pain, Adult Abdominal Pain, Adult Pain in the abdomen (abdominal pain) can be caused by many things. In most cases, it gets better with no treatment or by being treated at home. But in some cases, it can be serious. Your health care provider will ask questions about your medical history and do a physical exam to try to figure out what is causing your pain. Follow these instructions at home: Medicines Take rssr-qnm-emyvnfu and prescription medicines only as told by your provider. Do not take medicines that help you poop (laxatives) unless told by your provider. General instructions Watch your condition for any changes. Drink enough fluid to keep your pee (urine) pale yellow. Contact a health care provider if: Your pain changes, gets worse, or lasts longer than expected. You have severe cramping or bloating in your abdomen, or you vomit. Your pain gets worse with meals, after eating, or with certain foods. You are constipated or have diarrhea for more than 2 3 days. You are not hungry, or you lose weight without trying. You have signs of dehydration. These may include: ?Dark pee, very little pee, or no pee. ?Cracked lips or dry mouth. ?Sleepiness or weakness. You have pain when you pee (urinate) or poop. Your abdominal pain wakes you up at night. You have blood in your pee. You have a fever. Get help right away if: You cannot stop vomiting. Your pain is only in one part of the abdomen. Pain on the right side could be caused by appendicitis. You have bloody or black poop (stool), or poop that looks like tar. You have trouble breathing. You have chest pain. These symptoms may be an emergency. Get help right away. Call 911. Do not wait to see if the symptoms will go away. Do not drive yourself to the hospital. This information is not intended to replace advice given to you by your health care provider. Make sure you discuss any questions you have with your health care provider. Document Revised: 02/26/2023 Document Reviewed: 02/26/2023 [employer] Patient Education 2023 [employer]. Follow Up Care 05/10/2024 17:55:37 With:AZUL GORMAN Address: [place] [address]- Business (1) When:05/13/2024 19:16:46 [facility] 12-16-2024 NoteED Patient Education Note Gastroenterology Abdominal Pain, Adult Pain in the abdomen (abdominal pain) can be caused by many things. In most cases, it gets better with no treatment or by being treated at home. But in some cases, it can be serious. Your health care provider will ask questions about your medical history and do a physical exam to try to figure out what is causing your pain. Follow these instructions at home: Medicines ??? Take prez-euc-cwmunhp and prescription medicines only as told by your provider. ??? Do not take medicines that help you poop (laxatives) unless told by your provider. General instructions ??? Watch your condition for any changes. ??? Drink enough fluid to keep your pee (urine) pale yellow. Contact a health care provider if: ??? Your pain changes, gets worse, or lasts longer than expected. ??? You have severe cramping or bloating in your abdomen, or you vomit. ??? Your pain gets worse with meals, after eating, or with certain foods. ??? You are constipated or have diarrhea for more than 2?3 days. ??? You are not hungry, or you lose weight without trying. ??? You have signs of dehydration. These may include: ? Dark pee, very little pee, or no pee. ? Cracked lips or dry mouth. ? Sleepiness or weakness. ??? You have pain when you pee (urinate) or poop. ??? Your abdominal pain wakes you up at night. ??? You have blood in your pee. ??? You have a fever. Get help right away if: ??? You cannot stop vomiting. ??? Your pain is only in one part of the abdomen. Pain on the right side could be caused by appendicitis. ??? You have bloody or black poop (stool), or poop that looks like tar. ??? You have trouble breathing. ??? You have chest pain. These symptoms may be an emergency. Get help right away. Call 911. ??? Do not wait to see if the symptoms will go away. ??? Do not drive yourself to the hospital. This information is not intended to replace advice given to you by your health care provider. Make sure you discuss any questions you have with your health care provider. Document Revised: 02/26/2023 Document Reviewed: 02/26/2023 [employer] Patient Education ? 2023 [employer].[facility] 05-04-2024 Evaluation + Plan note Diagnostic Tests Pending * UA with Cult Rflx 05/04/24 [facility] 12-10-2024 Hospital Discharge instructions Patient Education 05/03/2024 22:38:20 Urinary Tract Infection, Adult Urinary Tract Infection, [...] Treatment for this condition includes: Antibiotic medicine. Zeyc-yva-gsnjfne medicines to treat discomfort. Drinking enough water [...] Follow these instructions at home: Medicines Take wewq-jro-mnhobnr and prescription medicines only as told by [...] with your health care provider. Document Revised: 12/17/2020 Document Reviewed: 12/22/2020 [employer] Patient Education 2023 [employer]. Follow Up Care 05/03/2024 20:44:32 With:AZUL GORMAN Address: [facility] [place] [address] Business (1) When:05/06/2024 [facility] 12-09-2024 NoteED Patient Education Note Obstetrics and Gynecology Urinary Tract Infection, Adult A urinary tract [...] more likely to develop this condition if: ??? You have a urinary catheter that stays in place. ??? You are not able to control when you urinate or have a bowel movement (incontinence). ??? You are female and you: ? Use a spermicide or diaphragm for control. ? Have low estrogen levels. ? Are . ??? You have certain genes that increase your risk. ??? You are sexually active. ??? You take antibiotic medicines. ??? You have a condition that causes your flow of urine to slow down, such as: ? An enlarged prostate, if you are male. ? Blockage in your urethra. ? A kidney stone. ? A nerve condition that affects your bladder control (neurogenic bladder). ? Not getting enough to drink, or not urinating often. ??? You have certain medical conditions, such as: ? Diabetes. ? A weak disease-fighting system (immunesystem). ? Sickle cell disease. ? Gout. ? Spinal cord injury. What are the signs or symptoms? Symptoms of this condition include: ??? Needing to urinate right away (urgency). ??? Frequent urination. This may include small amounts of urine each time you urinate. ??? Pain or burning with urination. ??? Blood in the urine. ??? Urine that smells bad or unusual. ??? Trouble urinating. ??? Cloudy urine. ??? Vaginal discharge, if you are female. ??? Pain in the abdomen or the lower back. You may also have: ??? Vomiting or a decreased appetite. ??? Confusion. ??? Irritability or tiredness. ??? A fever or chills. ??? Diarrhea. The first symptom in older adults may be confusion. In some cases, they may not have any symptoms until the infection has worsened. How is this diagnosed? This condition is diagnosed based on your medical history and a physical exam. You may also have other tests, including: ??? Urine tests. ??? Blood tests. ??? Tests for STIs (sexually transmitted infections). If you have had more than one UTI, a cystoscopy or imaging studies may be done to determine the cause of the infections. How is this treated? Treatment for this condition includes: ??? Antibiotic medicine. ??? Jysl-iam-blfthjv medicines to treat discomfort. ??? Drinking enough water to stay hydrated. If [...] medicines. Follow these instructions at home: Medicines ??? Take xnia-ecm-afanjtu and prescription medicines only as told by your health care provider. ??? If you were prescribed an antibiotic medicine, take it as told by your health care provider. Donot stop using the antibiotic even if you start to feel better. General instructions ??? Make sure you: ? Empty your bladder often and completely. Do not hold urine for long periods of time. ? Empty your bladder after sex. ? Wipe from front to back after urinating or having a bowel movement if you are female. Use each tissue only one time when you wipe. ??? Drink enough fluid to keep your urine pale yellow. ??? Keep all follow-up visits. This is important. Contact a health care provider if: ??? Your symptoms do not get better after 1?2 days. ??? Your symptoms go away and then return. Get help right away if: ??? You have severe pain in your back or your lower abdomen. ??? You have a fever or chills. ??? You have nausea or vomiting. Summary ??? A urinary tract infection (UTI) is an infection of any part of the urinary tract, which includes the kidneys, ureters, bladder, and urethra. ??? Most urinary tract infections are caused by bacteria in your genital area. ??? Treatment for this condition often includes antibiotic medicines. ??? If you were prescribed an antibiotic medicine, take it as told by your health care provider. Donot stop using the antibiotic even if you start to feel better. ??? Keep all follow-up visits. This is important. This information is not intended to replace advice given to you by your health care provider. Make zach (more content not included)...[facility]12-04-2024 Hospital Discharge instructions Follow Up Care 04/28/2024 12:17:47 With:[facility] Address:Unknown When:05/01/2024 14:54:23 With:AZUL GORMAN Address: [address] [place] [address]- Business (1) When:05/01/2024 14:54:21 Comments:Call for diagnosis based follow up [facility] 12-04-2024 Evaluation + Plan noteExtracted from: Title:ED Note Author:Rodrigue John PA-C te:04/28/24 Encounter for psychiatric as sessment (Z76.89: Persons encountering health services in other specified circumstances) Visual hallucinations (R44.1: Visual hallucinations) Orders: ciprofloxacin, 250 mg = 1 tab(s), Oral, q12hr, X 7 day(s), # 14 tab(s), Refills(s) 0, Pharmacy: [facility]/pharmacy #[id number], 154, cm, 04/21/24 13:16:00 EST, Height/Length Dosing, 66, kg, 04/21/24 13:16:00 EST, Weight Dosing diazepam, 5 mg = 1 tab(s), Tab, Oral, Once, Stop date 04/28/24 14:07:00 EST, STAT, Start date 04/28/24 14:07:00 EST, 04/28/24 14:07:00 EST CBC w/ Auto Diff Communication Order Comprehensive Metabolic Panel Consult to Mental Health Drug Screen Urine eGFR Ethanol Level UA with Cult Rflx Urine Culture Urine Culture Diagnostic Tests Pending * Urine Culture 04/28/24 [facility] 12-02-2024 Hospital Discharge instructions Follow Up Care 04/26/2024 18:36:51 With:AZUL GORMAN Address: [address] [place] [address]- Business (1) When:04/29/2024 19:13:41 Comments:Call for diagnosis based follow up [facility] 12-02-2024 Evaluation + Plan note Diagnostic Tests Pending * Urine Culture 04/26/24 [facility] 12-01-2024 Hospital Discharge instructions Patient Education 04/25/2024 15:38:33 Dysuria Dysuria Dysuria is pain or discomfort [...] Follow these instructions at home: Medicines Take fred-dhc-eudzmao and prescription medicines only as told by [...] provider. Document Revised: 12/22/2020 Document Reviewed: 12/22/2020 [employer] Patient Education 2023 [employer]. Follow Up Care 04/25/2024 13:58:52 With:AZUL GORMAN Address: [address] [place] [address]- Business (1) When:04/28/2024 15:27:24 [facility] 12-01-2024 NoteED Patient Education Note Urology Dysuria Dysuria is pain or discomfort during [...] be caused by many different things, including: ??? Urinary tract infection. ??? Kidney stones or bladder stones. ??? Certain STIs (sexually transmitted infections), such as chlamydia. ??? Dehydration. ??? Inflammation of the tissues of the vagina. ??? Use of certain medicines. ??? Use of certain soaps or scented products that cause irritation. Follow these instructions at home: Medicines ??? Take pyau-yzd-bnqrxno and prescription medicines only as told by your health care provider. ??? If you were prescribed an antibiotic medicine, take it as told by your health care provider. Donot stop taking the antibiotic even if you start to feel better. Eating and drinking ??? Drink enough fluid to keep your urine pale yellow. ??? Avoid caffeinated beverages, tea, and alcohol. These beverages can irritate the bladder and make dysuria worse. In males, alcohol may irritate the prostate. General instructions ??? Watch your condition for any changes. ??? Urinate often. Avoid holding urine for long periods of time. ??? If you are female, you should wipe from front to back after urinating or having a bowel movement. Use each piece of toilet paper only once. ??? Empty your bladder after sex. ??? Keep all follow-up visits. This is important. ??? If you had any tests done to find the cause of dysuria, it is up to you to get your test results. Ask your health care provider, or the department that is doing the test, when your results will be ready. Contact a health care provider if: ??? You have a fever. ??? You develop pain in your back or sides. ??? You have nausea or vomiting. ??? You have blood in your urine. ??? You are not urinating as often as you usually do. Get help right away if: ??? Your pain is severe and not relieved with medicines. ??? You cannot eat or drink without vomiting. ??? You are confused. ??? You have a rapid heartbeat while resting. ??? You have shaking or chills. ??? You feel extremely weak. Summary ??? Dysuria is pain or discomfort while urinating. Many different conditions can lead to dysuria. ??? If you have dysuria, you may have to urinate frequently or have the sudden feeling that you have to urinate (urgency). ??? Watch your condition for any changes. Keep all follow-up visits. ??? Make sure that you urinate often and drink enough fluid to keep your urine pale yellow. This information is not intended to replace advice given to you by your health care provider. Make sure you discuss any questions you have with your health care provider. Document Revised: 12/22/2020 Document Reviewed: 12/22/2020 [employer] Patient Education ? 2023 [employer].[facility] 04-25-2024 NoteProgress Note-Nurse Patient has been to the restroom 3 times with small [facility]s [facility] Evaluation + Plan noteExtracted from: Title:ED Note Author:Malick Ho PA-C te:04/25/24 Dysuria (R30.0: Dysuria) [facility] 11-27-2024 Hospital Discharge instructions Patient Education 04/21/2024 15:03:50 Urinary Tract Infection, Adult Urinary Tract Infection, [...] Treatment for this condition includes: Antibiotic medicine. Mjch-imp-dphenvs medicines to treat discomfort. Drinking enough water [...] Follow these instructions at home: Medicines Take qmqq-vys-hyciiux and prescription medicines only as told by [...] with your health care provider. Document Revised: 12/17/2020 Document Reviewed: 12/22/2020 [employer] Patient Education 2023 [employer] Follow Up Care 04/21/2024 13:02:47 With:AZUL GORMAN Address: [place] [address]- Business (1) When:04/24/2024 14:36:30 Comments:Call Dr for diagnosis based follow up [facility] 11-27-2024 NoteED Patient Education Note Obstetrics and Gynecology Urinary Tract Infection, Adult A urinary tract [...] more likely to develop this condition if: ??? You have a urinary catheter that stays in place. ??? You are not able to control when you urinate or have a bowel movement (incontinence). ??? You are female and you: ? Use a spermicide or diaphragm for control. ? Have low estrogen levels. ? Are . ??? You have certain genes that increase your risk. ??? You are sexually active. ??? You take antibiotic medicines. ??? You have a condition that causes your flow of urine to slow down, such as: ? An enlarged prostate, if you are male. ? Blockage in your urethra. ? A kidney stone. ? A nerve condition that affects your bladder control (neurogenic bladder). ? Not getting enough to drink, or not urinating often. ??? You have certain medical conditions, such as: ? Diabetes. ? A weak disease-fighting system (immunesystem). ? Sickle cell disease. ? Gout. ? Spinal cord injury. What are the signs or symptoms? Symptoms of this condition include: ??? Needing to urinate right away (urgency). ??? Frequent urination. This may include small amounts of urine each time you urinate. ??? Pain or burning with urination. ??? Blood in the urine. ??? Urine that smells bad or unusual. ??? Trouble urinating. ??? Cloudy urine. ??? Vaginal discharge, if you are female. ??? Pain in the abdomen or the lower back. You may also have: ??? Vomiting or a decreased appetite. ??? Confusion. ??? Irritability or tiredness. ??? A fever or chills. ??? Diarrhea. The first symptom in older adults may be confusion. In some cases, they may not have any symptoms until the infection has worsened. How is this diagnosed? This condition is diagnosed based on your medical history and a physical exam. You may also have other tests, including: ??? Urine tests. ??? Blood tests. ??? Tests for STIs (sexually transmitted infections). If you have had more than one UTI, a cystoscopy or imaging studies may be done to determine the cause of the infections. How is this treated? Treatment for this condition includes: ??? Antibiotic medicine. ??? Csze-vyf-kwvswxv medicines to treat discomfort. ??? Drinking enough water to stay hydrated. If [...] medicines. Follow these instructions at home: Medicines ??? Take dlck-xzl-lopzhew and prescription medicines only as told by your health care provider. ??? If you were prescribed an antibiotic medicine, take it as told by your health care provider. Donot stop using the antibiotic even if you start to feel better. General instructions ??? Make sure you: ? Empty your bladder often and completely. Do not hold urine for long periods of time. ? Empty your bladder after sex. ? Wipe from front to back after urinating or having a bowel movement if you are female. Use each tissue only one time when you wipe. ??? Drink enough fluid to keep your urine pale yellow. ??? Keep all follow-up visits. This is important. Contact a health care provider if: ??? Your symptoms do not get better after 1?2 days. ??? Your symptoms go away and then return. Get help right away if: ??? You have severe pain in your back or your lower abdomen. ??? You have a fever or chills. ??? You have nausea or vomiting. Summary ??? A urinary tract infection (UTI) is an infection of any part of the urinary tract, which includes the kidneys, ureters, bladder, and urethra. ??? Most urinary tract infections are caused by bacteria in your genital area. ??? Treatment for this condition often includes antibiotic medicines. ??? If you were prescribed an antibiotic medicine, take it as told by your health care provider. Donot stop using the antibiotic even if you start to feel better. ??? Keep all follow-up visits. This is important. This information is not intended to replace advice given to you by your health care provider. Make zach (more content not included)...[facility]11-27-2024 Evaluation + Plan noteExtracted from: Title:ED Note Author:Alvaro BYRD, Rodrigue Bray te:04/21/24 UTI (urinary tract infection ) (N39.0: Urinary tract infection, site not specified) Orders: ciprofloxacin, 250 mg = 1 tab(s), Oral, q12hr, X 7 day(s), # 14 tab(s), Refills(s) 0, Pharmacy: [facility]/pharmacy #[id number], 154, cm, 04/21/24 13:16:00 EST, Height/Length Dosing, 66, kg, 04/21/24 13:16:00 EST, Weight Dosing docusate, 50 mg = 1 cap(s), Oral, BID, PRN for constipation, X 10 day(s), # 20 cap(s), Refills(s) 0, Pharmacy: [facility]/pharmacy #[id number], 154, cm, 04/21/24 13:16:00 EST, Height/Length Dosing, 66, kg, 04/21/24 13:16:00 EST, Weight Dosing senna, 17.2 mg = 2 tab(s), Oral, Once a day (at bedtime), # 20 tab(s), Refills(s) 0, Pharmacy: [facility]/pharmacy #[id number], 154, cm, 04/21/24 13:16:00 EST, Height/Length Dosing, 66, kg, 04/21/24 13:16:00 EST, Weight Dosing Bladder Scan UA with Cult Rflx Urine Culture Diagnostic Tests Pending * Urine Culture 04/21/24 [facility] 11-25-2024 Hospital Discharge instructions Patient Education 04/19/2024 13:45:23 Constipation, Adult Constipation, Adult Constipation is when a person has fewer than three bowel movements in a week, has difficulty havinga bowel movement, or has stools (feces) that are dry, hard, or larger than normal. Constipation maybe caused by an underlying condition. It may become worse with age if a person takes certain medicines and does not take in enough fluids. Follow these instructions at home: Eating and drinking Eat foods that have a lot of fiber, such as beans, whole grains, and fresh fruits and vegetables. Limit foods that are low in fiber and high in fat and processed sugars, such as fried or sweet foods. These include thai fries, hamburgers, cookies, candies, and soda. Drink enough fluid to keep your urine pale yellow. General instructions Exercise regularly or as told by your health care provider. Try to do 150 minutes of moderate exercise each week. Use the bathroom when you have the urge to go. Do not hold it in. Take xoen-ulc-orhnaxj and prescription medicines only as told by your health care provider. This includes any fiber supplements. During bowel movements: ?Practice deep breathing while relaxing the lower abdomen. ?Practice pelvic floor relaxation. Watch your condition for any changes. Let your health care provider know about them. Keep all follow-up visits as told by your health care provider. This is important. Contact a health care provider if: You have pain that gets worse. You have a fever. You do not have a bowel movement after 4 days. You vomit. You are not hungry or you lose weight. You are bleeding from the opening between the buttocks (anus). You have thin, pencil-like stools. Get help right away if: You have a fever and your symptoms suddenly get worse. You leak stool or have blood in your stool. Your abdomen is bloated. You have severe pain in your abdomen. You feel dizzy or you faint. Summary Constipation is when a person has fewer than three bowel movements in a week, has difficulty havinga bowel movement, or has stools (feces) that are dry, hard, or larger than normal. Eat foods that have a lot of fiber, such as beans, whole grains, and fresh fruits and vegetables. Drink enough fluid to keep your urine pale yellow. Take furj-zxk-ypymeue and prescription medicines only as told by your health care provider. This includes any fiber supplements. This information is not intended to replace advice given to you by your health care provider. Make sure you discuss any questions you have with your health care provider. Document Revised: 03/26/2023 Document Reviewed: 03/26/2023 Trustribe Patient Education 2023 [employer] Follow Up Care 04/19/2024 10:41:57 With:AZUL GORMAN Address: [address] [place] [address] [place] [phone] Business (1) When:Within 3 Day(s) [facility] 11-25-2024 Evaluation + Plan noteExtracted from: Title:ED Note Author:Malick Ho PA-C te:04/19/24 Constipation (K59.00: Arias bermudez, unspecified) [facility] 11-25-2024 NoteED Patient Education Note Gastroenterology Constipation, Adult Constipation is when a person has fewer than three bowel movements in a week, has difficulty havinga bowel movement, or has stools (feces) that are dry, hard, or larger than normal. Constipation maybe caused by an underlying condition. It may become worse with age if a person takes certain medicines and does not take in enough fluids. Follow these instructions at home: Eating and drinking ??? Eat foods that have a lot of fiber, such as beans, whole grains, and fresh fruits and vegetables. ??? Limit foods that are low in fiber and high in fat and processed sugars, such as fried or sweet foods. These include thai fries, hamburgers, cookies, candies, and soda. ??? Drink enough fluid to keep your urine pale yellow. General instructions ??? Exercise regularly or as told by your health care provider. Try to do 150 minutes of moderate exercise each week. ??? Use the bathroom when you have the urge to go. Do not hold it in. ??? Take fhjo-ymh-jhfqbrq and prescription medicines only as told by your health care provider. This includes any fiber supplements. ??? During bowel movements: ? Practice deep breathing while relaxing the lower abdomen. ? Practice pelvic floor relaxation. ??? Watch your condition for any changes. Let your health care provider know about them. ??? Keep all follow-up visits as told by your health care provider. This is important. Contact a health care provider if: ??? You have pain that gets worse. ??? You have a fever. ??? You do not have a bowel movement after 4 days. ??? You vomit. ??? You are not hungry or you lose weight. ??? You are bleeding from the opening between the buttocks (anus). ??? You have thin, pencil-like stools. Get help right away if: ??? You have a fever and your symptoms suddenly get worse. ??? You leak stool or have blood in your stool. ??? Your abdomen is bloated. ??? You have severe pain in your abdomen. ??? You feel dizzy or you faint. Summary ??? Constipation is when a person has fewer than three bowel movements in a week, has difficulty having a bowel movement, or has stools (feces) that are dry, hard, or larger than normal. ??? Eat foods that have a lot of fiber, such as beans, whole grains, and fresh fruits and vegetables. ??? Drink enough fluid to keep your urine pale yellow. ??? Take isem-cpb-asiyauh and prescription medicines only as told by your health care provider. This includes any fiber supplements. This information is not intended to replace advice given to you by your health care provider. Make sure you discuss any questions you have with your health care provider. Document Revised: 03/26/2023 Document Reviewed: 03/26/2023 Elsevier Patient Education ? 2023 FedBid.[facility] 04-17-2024 Hospital Discharge instructions Patient Education 04/17/2024 17:43:03 Suicidal Feelings: How to Help Yourself Suicidal Feelings: How to Help Yourself Suicide is when you end your own life. Suicidal ideation includes expressing thoughts about, or a preoccupation with, ending your own life. There are many things you can do to help yourself feel better when struggling with these feelings. Many services and people are available to support you and others who struggle with similar feelings. If you ever feel like you may hurt yourself or others, or have thoughts about taking your own life,get help right away. To get help: Go to your nearest emergency department. Call your local emergency services (911 in the [place] Call the [facility] services helpline (211 in the [place] Call or text a suicide hotline to speak with a trained counselor. The following suicide hotlines are available in the [place]: ?6-739-201-TALK ( or 676 in the [place] ?0-985-GDTWINU ( ). ?Text 076392. This is the Crisis Text Line in the [place] ? . This is a hotline for Latvian speakers. ? . This is a hotline for TTY users. ?4-118-1-U-SARTHAK ( ). This is a hotline for lesbian, schmidt, bisexual, transgender, or questioning youth. ?For a list of hotlines in [place], visit suicide.org/hotlines/international/oncmbs-dftjckz-ayheddsm.html Contact a crisis center or a local suicide prevention center. To find a crisis center or suicide prevention center: ?Call your local hospital, clinic, community service organization, mental health center, social service provider, or health department. Ask for help with connecting to a crisis center. ?For a list of crisis centers in the [place], visit: suicidepreventionlifeline.org ?For a list of crisis centers in [place], visit: suicideprevention.wi How to help yourself feel better Promise yourself that you will not do anything bad or extreme when you have suicidal feelings. Remember the times you have felt hopeful. ?Many people have gotten through suicidal thoughts and feelings, and you can too. ?If you have had these feelings before, remind yourself that you can get through them again. Let family, friends, teachers, or counselors know how you are feeling. Do not separate yourself from those who care about you and want to help you. ?Talk with someone every day, even if you do not feel like talking to anyone or being with other people. ?Nskj-ox-jpfx conversation is best to help them understand your feelings. Contact a mental health care provider and work with this person regularly. Make a safety plan that you can follow during a crisis. ?Include phone numbers of suicide prevention hotlines, mental health professionals, and trusted friends and family members you can call during an emergency. ?Save these numbers on your phone. If you are thinking of taking a lot of medicine, give your medicine to someone who can give it to you as prescribed. ?If you are on antidepressants and are concerned you will overdose, tell your health care provider so that he or she can give you safer medicines. Try to stick to your routines and follow a schedule every day. Make self-care a priority. Make a list of realistic goals, and cross them off when you achieve them. Accomplishments can give you a sense of worth. Wait until you are feeling better before doing things that you find difficult or unpleasant. Do things that you have always enjoyed to take your mind off your feelings. ?Try reading a book, or listening to or playing music. ?Spending time outside, in nature, may help you feel better. Follow these instructions at home: Visit your primary health care provider every year for a physical and a mental health checkup. Take nuxt-bah-aeciyqp and prescription medicines only as told by your health care provider. ?Ask your health care provider about the possible side effects of any medicines you are taking. ?Ask your health care provider about whether suicidal ideation is a possible side effect of any of your medicines. Learn about suicidal ideation and what increases the risk for the development of suicidal thoughts. Eat a well-balanced diet, and eat regular meals. Get plenty of rest. Exercise if you are able. Just 30 minutes of exercise each day can help you feel better. Keep your living space well lit. Do not use alcohol or drugs. Remove these substances from your home. General recommendations Remove weapons, poisons, knives, and other deadly items from your home. Work with a mental health care provider as needed. When you are feeling well, write yourself a letter with tips and support that you can read when youare not feeling well. Remember that life's difficulties can be sorted out with help. Conditions can be treated, and you can learn behaviors and ways of thinking that will help you. ?Work with your health care provider or counselor to learn ways of coping with your thoughts and feelings. Where to find more information National Suicide Prevention Lifeline: www.suicidepreventionlifeline.org Hopeline: www.hopeline.[employer] for Suicide Prevention: www.afsp.org The [place] Project (for lesbian, schmidt, bisexual, transgender, or questioning youth): www.thetrevorproject.org National [place] of Mental Health: www.nimh.nih.gov/health/topics/suicide-prevention Suicide Prevention Resources: afsp.org/tfsotxj-qxstogjgvx-daibnunfv Contact a health care provider if: You feel as though you are a burden to others. You feel agitated, angry, vengeful, or have extreme mood swings. You have withdrawn from family and friends. You are frequently using drugs or alcohol. Get help right away if: You are talking about suicide or wishing to . You start making plans for how to commit suicide. You feel that you have no reason to live. You start making plans for putting your affairs in order, saying goodbye, or giving your possessions away. You feel guilt, shame, or unbearable pain, and it seems like there is no way out. You are engaging in risky behaviors that could lead to . If you have any of these thoughts or symptoms, get help right away: Go to your nearest emergency department or crisis center. Call emergency services (911 in the [place] Call or text a suicide crisis helpline. Summary Suicide is when you take your own life. Suicidal feelings are thoughts about ending your own life. Promise yourself that you will not do anything bad or extreme when you have suicidal feelings. Let family, friends, teachers, or counselors know how you are feeling. Get help right away if you start making plans for how to commit suicide. This information is not intended to replace advice given to you by your health care provider. Make sure you discuss any questions you have with your health care provider. Document Revised: 12/06/2021 Document Reviewed: 09/20/2021 Trustribe Patient Education 2023 [employer]id. Follow Up Care 04/17/2024 15:56:10 With:[facility] Address:Unknown When:04/20/2024 17:33:46 With:AZUL GORMAN Address: [address] [place] [address] Business (1) When:04/20/2024 17:33:41 Comments:Call for diagnosis based follow up [facility] 11-23-2024 NoteED Patient Education Note Mental and Behavioral Health Suicidal Feelings: How to Help Yourself Suicide is when you end your own life. Suicidal ideation includes expressing thoughts about, or a preoccupation with, ending your own life. There are many things you can do to help yourself feel better when struggling with these feelings. Many services and people are available to support you and others who struggle with similar feelings. If you ever feel like you may hurt yourself or others, or have thoughts about taking your own life,get help right away. To get help: ??? Go to your nearest emergency department. ??? Call your local emergency services (911 in the [place] ??? Call the [facility] health and human services helpline (211 in the [place] ??? Call or text a suicide hotline to speak with a trained counselor. The following suicide hotlines are available in the [place]: ? 6-152-065-TALK ( or 556 in the [place] ? 0-459-SUGOPGU ( ). ? Text 414206. This is the Crisis Text Line in the [place] ? . This is a hotline for Latvian speakers. ? . This is a hotline for TTY users. ? 4-161-1-URONI ( ). This is a hotline for lesbian, schmidt, bisexual, transgender, or questioning youth. ? For a list of hotlines in [place], visit suicide.org/hotlines/international/qsicub-hcchbtk-xaiuphpo.html ??? Contact a crisis center or a local suicide prevention center. To find a crisis center or suicide prevention center: ? Call your local hospital, clinic, community service organization, mental health center, social service provider, or health department. Ask for help with connecting to a crisis center. ? For a list of crisis centers in the [place], visit: suicidepreventionlifeline.org ? For a list of crisis centers in [place], visit: suicideprevention.ca How to help yourself feel better ??? Promise yourself that you will not do anything bad or extreme when you have suicidal feelings. Remember the times you have felt hopeful. ? Many people have gotten through suicidal thoughts and feelings, and you can too. ? If you have had these feelings before, remind yourself that you can get through them again. ??? Let family, friends, teachers, or counselors know how you are feeling. Do not separate yourselffrom those who care about you and want to help you. ? Talk with someone every day, even if you do not feel like talking to anyone or being with other people. ? Dqai-uv-xbni conversation is best to help them understand your feelings. ??? Contact a mental health care provider and work with this person regularly. ??? Make a safety plan that you can follow during a crisis. ? Include phone numbers of suicide prevention hotlines, mental health professionals, and trusted friends and family members you can call during an emergency. ? Save these numbers on your phone. ??? If you are thinking of taking a lot of medicine, give your medicine to someone who can give it to you as prescribed. ? If you are on antidepressants and are concerned you will overdose, tell your health care providerso that he or she can give you safer medicines. ??? Try to stick to your routines and follow a schedule every day. Make self- care a priority. ??? Make a list of realistic goals, and cross them off when you achieve them. Accomplishments can give you a sense of worth. ??? Wait until you are feeling better before doing things that you find difficult or unpleasant. ??? Do things that you have always enjoyed to take your mind off your feelings. ? Try reading a book, or listening to or playing music. ? Spending time outside, in nature, may help you feel better. Follow these instructions at home: ??? Visit your primary health care provider every year for a physical and a mental health checkup. ??? Take ppep-ykq-naaaqko and prescription medicines only as told by your health care provider. ? Ask your health care provider about the possible side effects of any medicines you are taking. ? Ask your health care provider about whether suicidal ideation is a possible side effect of any ofyour medicines. ??? Learn about suicidal ideation and what increases the risk for the development of suicidal thoughts. ??? Eat a well-balanced diet, and eat regular meals. ??? Get plenty of rest. ??? Exercise if you are able. Just 30 minutes of exercise each day can help you feel better. ??? Keep your living space well lit. ??? Do not use alcohol or drugs. Remove these substances from your home. General recommendations ??? Remove weapons, poisons, knives, and other deadly items from your home. ??? Work with a mental health care provider as needed. ??? When you are feeling well, write yourself a letter with tips and support that you can read whenyou are not feeling well. ??? Remember that life's difficulties can be sorted out with help. Condition (more content not included)...[facility]11-20-2024 Hospital Discharge instructions Patient Education 04/14/2024 20:14:16 Finger Fracture, Adult Finger Fracture, Adult A finger fracture is a break in any of the finger bones. What are the causes? The main cause of finger fractures is injury, such as from sports, a fall, or closing your finger in a drawer or door. What increases the risk? The following factors may make you more likely to develop this condition: Playing sports. Workplace activities that involve machinery. Having weak bones (osteoporosis). This condition makes your bones less dense and causes them to break easily. What are the signs or symptoms? The main symptoms of a fractured finger are pain, bruising, and swelling shortly after the injury. Other symptoms include: Stiffness. Exposed bones (compound fracture or open fracture), in severe cases. How is this diagnosed? This condition is diagnosed based on a physical exam, your medical history, and your symptoms. An X-ray will also be done to confirm the diagnosis. How is this treated? Treatment for this condition depends on the severity of the fracture. If the bones are still in place, the finger may be splinted to keep the finger still while it heals (immobilization). If several fingers are fractured, you may need a cast. A cast may be applied up to the elbow to keep your fingers and hand from moving. If the bones are out of place, your health care provider may move them back into place manually or surgically. You may also need to do physical therapy exercises to improve movement and strength in your finger. Follow these instructions at home: If you [...] and dry. If you have a nonremovable cast: Do not put pressure on any [...] on the skin underneath the cast. Keep the cast clean and dry. Bathing Do not take baths, swim, or use a hot tub until your health care provider approves. Ask your healthcare provider if you may take showers. If your splint or cast is not [...] to reduce stiffness and swelling. Raise (elevate) the injured area above the level of your heart while you are sitting or lying down. Activity Ask your health care provider if the medicine prescribed to you requires you to avoid driving or using machinery. Do physical therapy exercises as told by your health care provider. Return to your normal activities as told by your health care provider. Ask your health care provider what activities are safe for you. Ask your health care provider when it is safe to drive if you have a splint or cast on your finger. General instructions Do not use any products that contain nicotine or tobacco. These products include cigarettes, chewing tobacco, and vaping devices, such as e-cigarettes. These can delay bone healing. If you need help quitting, ask your health care provider. Take emzm-jel-svazcyi and prescription medicines only as told by your health care provider. Keep all follow-up visits. This is important. Contact a health care provider if: Your pain or swelling gets worse, even with treatment. You have trouble moving your finger. Get help right away if: Your finger becomes numb or blue. Summary A finger fracture is a break in any of the finger bones. Injury is the main cause of finger fractures. Treatment for this condition depends on the severity of the fracture. This information is not intended to replace advice given to you by your health care provider. Make sure you discuss any questions you have with your health care provider. Document Revised: 05/01/2021 Document Reviewed: 03/20/2021 Trustribe Patient Education 2023 FedBid. Follow Up Care 04/14/2024 17:46:14 With:Kye Barrientos Address: [address] [place], [place] [phone] Business (1) When:04/17/2024 20:10:49 Comments:Call the office of your primary care [...] you develop any new or worsening symptoms. [facility] 11-20-2024 NoteED Patient Education Note Orthopedics Finger Fracture, Adult A finger fracture is a break in any of the finger bones. What are the causes? The main cause of finger fractures is injury, such as from sports, a fall, or closing your finger in a drawer or door. What increases the risk? The following factors may make you more likely to develop this condition: ??? Playing sports. ??? Workplace activities that involve machinery. ??? Having weak bones (osteoporosis). This condition makes your bones less dense and causes them tobreak easily. What are the signs or symptoms? The main symptoms of a fractured finger are pain, bruising, and swelling shortly after the injury. Other symptoms include: ??? Stiffness. ??? Exposed bones (compound fracture or open fracture), in severe cases. How is this diagnosed? This condition is diagnosed based on a physical exam, your medical history, and your symptoms. An X-ray will also be done to confirm the diagnosis. How is this treated? Treatment for this condition depends on the severity of the fracture. If the bones are still in place, the finger may be splinted to keep the finger still while it heals (immobilization). If several fingers are fractured, you may need a cast. A cast may be applied up to the elbow to keep your fingers and hand from moving. If the bones are out of place, your health care provider may move them back into place manually or surgically. You may also need to do physical therapy exercises to improve movement and strength in your finger. Follow these instructions at home: If you have a removable splint: ??? Wear the splint as told by your health care provider. Remove it only as told by your health care provider. ??? Check the skin around the splint every day. Tell your health care provider about any concerns. ??? Loosen the splint if your fingers tingle, become numb, or turn cold and blue. ??? Keep the splint clean and dry. If you have a nonremovable cast: ??? Do not put pressure on any part of the cast until it is fully hardened. This may take several hours. ??? Do not stick anything inside the cast to scratch your skin. Doing that increases your risk of infection. ??? Check the skin around the cast every day. Tell your health care provider about any concerns. ??? You may put lotion on dry skin around the edges of the cast. Do not put lotion on the skin underneath the cast. ??? Keep the cast clean and dry. Bathing ??? Do not take baths, swim, or use a hot tub until your health care provider approves. Ask your health care provider if you may take showers. ??? If your splint or cast is not waterproof: ? Do not let it get wet. ? Cover it with a watertight covering when you take a bath or shower. Managing pain, stiffness, and swelling ??? If directed, put ice on the injured area. To do this: ? If you have a removable splint, remove it as told by your health care provider. ? Put ice in a plastic bag. ? Place a towel between your skin and the bag, or between your cast and the bag. ? Leave the ice on for 20 minutes, 2?3 times a day. ? Remove the ice if your skin turns bright red. This is very important. If you cannot feel pain, heat, or cold, you have a greater risk of damage to the area. ??? Move your fingers often to reduce stiffness and swelling. ??? Raise (elevate) the injured area above the level of your heart while you are sitting or lying down. Activity ??? Ask your health care provider if the medicine prescribed to you requires you to avoid driving or using machinery. ??? Do physical therapy exercises as told by your health care provider. ??? Return to your normal activities as told by your health care provider. Ask your health care provider what activities are safe for you. ??? Ask your health care provider when it is safe to drive if you have a splint or cast on your finger. General instructions ??? Do not use any products that contain nicotine or tobacco. These products include cigarettes, chewing tobacco, and vaping devices, such as e-cigarettes. These can delay bone healing. If you need help quitting, ask your health care provider. ??? Take epqs-dtt-nmadzcd and prescription medicines only as told by your health care provider. ??? Keep all follow-up visits. This is important. Contact a health care provider if: ??? Your pain or swelling gets worse, even with treatment. ??? You have trouble moving your finger. Get help right away if: ??? Your finger becomes numb or blue. Summary ??? A finger fracture is a break in any of the finger bones. ??? Injury is the main cause of finger fractures. ??? Treatment for this condition depends on the severity of the fracture. This information is not intended to replace advice given to you by your health care provider. Make sure you discuss any questions you have with your health care provider. Document Revised: 05/01/2021 Document Reviewed: 03/20/2021 E (more content not included)...[facility] [facility]11-20-2024 Evaluation + Plan noteExtracted from: Title:ED Note Author:Johny Willson DO Date:06/14/23 Finger fracture (S62.609A: F racture of unspecified phalanx of unspecified finger, initial encounter for closed fracture) Ordered: acetaminophen-hydrocodone, 1 tab(s), Oral, q6hr for pain, 4 tab(s), Refill(s) 0, [id number], 154, cm, 04/14/24 18:05:00 EST, Height/Length Dosing, 66.1, kg, 04/14/24 18:05:00 EST, Weight Dosing Orders: acetaminophen-oxycodone, 1 tab(s), Tab, Oral, Once, Stop date 04/14/24 20:08:00 EST, STAT, Start date 04/14/24 20:08:00 EST Misc Prescription, Walker, See Instructions, 1 EA, 0, Dispense one walker, Supply Finger Splint Application Splint Application Wrist XR Hand 3+ Views Right [facility] 11-17-2024 Hospital Discharge instructions Patient Education 04/11/2024 16:17:47 Food Choices to Help Relieve Diarrhea, Adult Food Choices to Help Relieve Diarrhea, Adult Diarrhea can make you feel weak and cause you to become dehydrated. Dehydration is a condition in which there is not enough water or other fluids in the body. It is important to choose the right foods and drinks to: Relieve diarrhea. Replace lost fluids and nutrients. Prevent dehydration. What are tips for following this plan? Relieving diarrhea Avoid foods that make your diarrhea worse. These may include: ?Foods and drinks that are sweetened with high-fructose corn syrup, honey, or sweeteners such as xylitol, sorbitol, and mannitol. Check food labels for these ingredients. ?Fried, greasy, or spicy foods. ?Raw fruits and vegetables. Eat foods that are rich in probiotics. These include foods such as yogurt and fermented milk products. Probiotics can help increase healthy bacteria in your stomach and intestines (gastrointestinal or GI tract). This may help digestion and stop diarrhea. If you have lactose intolerance, avoid dairy products. These may make your diarrhea worse. Take medicine to help stop diarrhea only as told by your health care provider. Replacing nutrients Eat bland, paiq-un-vgbuno foods in small amounts as you are able, until your diarrhea starts to getbetter. These foods include bananas, applesauce, rice, toast, and crackers. Over time, add nutrient-rich foods as your body tolerates them or as told by your health care provider. These include: ?Well-cooked protein foods, such as eggs, lean meats like fish or chicken without skin, and tofu. ?Peeled, seeded, and soft-cooked fruits and vegetables. ?Low-fat dairy products. ?Whole grains. Take vitamin and mineral supplements as told by your health care provider. Preventing dehydration Start by sipping water or a solution to prevent dehydration (oral rehydration solution, or ORS). This is a drink that helps replace fluids and minerals your body has lost. You can buy an ORS at pharmacies and retail stores. Try to drink at least 8 10 cups (2,000 2,500 mL) of fluid each day to help replace lost fluids. If your urine is pale yellow, you are getting enough fluids. You may drink other liquids in addition to water, such as fruit juice that you have added water to (diluted fruit juice) or low-calorie sports drinks, as tolerated or as told by your health care provider. Avoid drinks with caffeine, such as coffee, tea, or soft drinks. Avoid alcohol. This information is not intended to replace advice given to you by your health care provider. Make sure you discuss any questions you have with your health care provider. Document Revised: 10/29/2022 Document Reviewed: 10/29/2022 [employer] Patient Education 2023 [employer]. 04/11/2024 16:17:47 Diarrhea, Adult, Rmll-zc-Ehwj Diarrhea, Adult Diarrhea is when you pass loose and sometimes watery poop (stool) often. Diarrhea can make you feelweak and cause you to lose water in your body (get dehydrated). Losing water in your body can causeyou to: Feel tired and thirsty. Have a dry mouth. Go pee (urinate) less often. Diarrhea often lasts 2 3 days. It can last longer if it is a sign of something more serious. Be sure to treat your diarrhea as told by your doctor. Follow these instructions at home: Eating and drinking Follow these instructions as told by your doctor: Take an ORS (oral rehydration solution). This is a drink that helps you replace fluids and mineralsyour body lost. It is sold at pharmacies and stores. Drink enough fluid to keep your pee (urine) pale yellow. ?Drink fluids such as: ?Water. You can also get fluids by sucking on ice chips. ?Diluted fruit juice. ?Low-calorie sports drinks. ?Milk. ?Avoid drinking fluids that have a lot of sugar or caffeine in them. These include soda, energy drinks, and regular sports drinks. ?Avoid alcohol. Eat bland, agyl-ob-izzwgz foods in small amounts as you are able. These foods include: ?Bananas. ?Applesauce. ?Rice. ?Low-fat (lean) meats. ?Wamic. ?Crackers. Avoid spicy or fatty foods. Medicines Take nxey-nbs-upjjuxx and prescription medicines only as told by your doctor. If you were prescribed antibiotics, take them as told by your doctor. Do not stop taking them even if you start to feel better. General instructions Wash your hands often using soap and water for 20 seconds. If soap and water are not available, usehand short order cook. Others in your home should wash their hands as well. Wash your hands: ?After using the toilet or changing a diaper. ?Before preparing, cooking, or serving food. ?While caring for a sick person. ?While visiting someone in a hospital. Rest at home while you get better. Take a warm bath to help with any burning or pain from having diarrhea. Watch your condition for any changes. Contact a doctor if: You have a fever. Your diarrhea gets worse. You have new symptoms. You vomit every time you eat or drink. You feel light-headed, dizzy, or you have a headache. You have muscle cramps. You have signs of losing too much water in your body, such as: ?Dark pee, very little pee, or no pee. ?Cracked lips. ?Dry mouth. ?Sunken eyes. ?Sleepiness. ?Weakness. You have bloody or black poop or poop that looks like tar. You have very bad pain, cramping, or bloating in your belly (abdomen). Your skin feels cold and clammy. You feel confused. Get help right away if: You have chest pain. Your heart is beating very quickly. You have trouble breathing or you are breathing very quickly. You feel very weak or you faint. These symptoms may be an emergency. Get help right away. Call 911. Do not wait to see if the symptoms will go away. Do not drive yourself to the hospital. This information is not intended to replace advice given to you by your health care provider. Make sure you discuss any questions you have with your health care provider. Document Revised: 10/29/2022 Document Reviewed: 10/29/2022 [employer] Patient Education 2023 [employer]. 04/11/2024 16:17:46 Urinary Tract Infection, Adult, Ryqf-sj-Opvf Urinary Tract Infection, Adult A urinary tract [...] Follow these instructions at home: Medicines Take rlqs-fdj-ejuthzj and prescription medicines only as told by [...] with your health care provider. Document Revised: 12/17/2020 Document Reviewed: 12/22/2020 [employer] Patient Education 2023 [employer]. Follow Up Care 04/11/2024 12:41:03 With:AZUL GORMAN Address: [facility] [place] [address] Business (1) When:1 to 2 days Comments:For urine culture results and stool examination results [facility] 11-17-2024 NoteED Patient Education Note Gastroenterology Food Choices to Help Relieve Diarrhea, Adult Diarrhea can make you feel weak and cause you to become dehydrated. Dehydration is a condition in which there is not enough water or other fluids in the body. It is important to choose the right foods and drinks to: ??? Relieve diarrhea. ??? Replace lost fluids and nutrients. ??? Prevent dehydration. What are tips for following this plan? Relieving diarrhea ??? Avoid foods that make your diarrhea worse. These may include: ? Foods and drinks that are sweetened with high-fructose corn syrup, honey, or sweeteners such as xylitol, sorbitol, and mannitol. Check food labels for these ingredients. ? Fried, greasy, or spicy foods. ? Raw fruits and vegetables. ??? Eat foods that are rich in probiotics. These include foods such as yogurt and fermented milk products. Probiotics can help increase healthy bacteria in your stomach and intestines (gastrointestinal or GI tract). This may help digestion and stop diarrhea. ??? If you have lactose intolerance, avoid dairy products. These may make your diarrhea worse. ??? Take medicine to help stop diarrhea only as told by your health care provider. Replacing nutrients ??? Eat bland, aund-pp-vppspk foods in small amounts as you are able, until your diarrhea starts toget better. These foods include bananas, applesauce, rice, toast, and crackers. ??? Over time, add nutrient-rich foods as your body tolerates them or as told by your health care provider. These include: ? Well-cooked protein foods, such as eggs, lean meats like fish or chicken without skin, and tofu. ? Peeled, seeded, and soft-cooked fruits and vegetables. ? Low-fat dairy products. ? Whole grains. ??? Take vitamin and mineral supplements as told by your health care provider. Preventing dehydration ??? Start by sipping water or a solution to prevent dehydration (oral rehydration solution, or ORS). This is a drink that helps replace fluids and minerals your body has lost. You can buy an ORS at pharmacies and retail stores. ??? Try to drink at least 8?10 cups (2,000?2,500 mL) of fluid each day to help replace lost fluids.If your urine is pale yellow, you are getting enough fluids. ??? You may drink other liquids in addition to water, such as fruit juice that you have added waterto (diluted fruit juice) or low-calorie sports drinks, as tolerated or as told by your health care provider. ??? Avoid drinks with caffeine, such as coffee, tea, or soft drinks. ??? Avoid alcohol. This information is not intended to replace advice given to you by your health care provider. Make sure you discuss any questions you have with your health care provider. Document Revised: 10/29/2022 Document Reviewed: 10/29/2022 [employer] Patient Education ? 2023 [employer] Infectious Disease Diarrhea, Adult Diarrhea is when you pass loose and sometimes watery poop (stool) often. Diarrhea can make you feelweak and cause you to lose water in your body (get dehydrated). Losing water in your body can causeyou to: ??? Feel tired and thirsty. ??? Have a dry mouth. ??? Go pee (urinate) less often. Diarrhea often lasts 2?3 days. It can last longer if it is a sign of something more serious. Be sure to treat your diarrhea as told by your doctor. Follow these instructions at home: Eating and drinking Follow these instructions as told by your doctor: ??? Take an ORS (oral rehydration solution). This is a drink that helps you replace fluids and minerals your body lost. It is sold at pharmacies and stores. ??? Drink enough fluid to keep your pee (urine) pale yellow. ? Drink fluids such as: ? Water. You can also get fluids by sucking on ice chips. ? Diluted fruit juice. ? Low-calorie sports drinks. ? Milk. ? Avoid drinking fluids that have a lot of sugar or caffeine in them. These include soda, energy drinks, and regular sports drinks. ? Avoid alcohol. ??? Eat bland, mhaq-sb-rpqomq foods in small amounts as you are able. These foods include: ? Bananas. ? Applesauce. ? Rice. ? Low-fat (lean) meats. ? Wamic. ? Crackers. ??? Avoid spicy or fatty foods. Medicines ??? Take qpbk-etm-swikuwc and prescription medicines only as told by your doctor. ??? If you were prescribed antibiotics, take them as told by your doctor. Do not stop taking them even if you start to feel better. General instructions ??? Wash your hands often using soap and water for 20 seconds. If soap and water are not available,use hand short order cook. Others in your home should wash their hands as well. Wash your hands: ? After using the toilet or changing a diaper. ? Before preparing, cooking, or serving food. ? While caring for a sick person. ? While visiting someone in a hospital. ??? Rest at (more content not included)...[facility]11-17-2024 Evaluation + Plan noteExtracted from: Title:ED Note Author:Carlos Coates MD Date:04/11 1. Diarrhea (R19.7: Diarrhea , unspecified) Orders: acetaminophen-oxycodone, 1 tab(s), Tab, Oral, Once, Stop date 04/11/24 13:24:00 EST, STAT, Start date 04/11/24 13:24:00 EST amoxicillin, 500 mg = 1 cap(s), Oral, TID, X 7 day(s), # 21 cap(s), Refills(s) 0, Pharmacy: [id number], 154, cm, 04/11/24 12:51:00 EST, Height/Length Dosing, 66.1, kg, 04/11/24 12:51:00 EST, Weight Dosing loperamide, 2 mg = 1 tab(s), Tab, Oral, Once, Stop date 04/11/24 13:17:00 EST, STAT, Start date 04/11/24 13:17:00 EST, 04/11/24 13:17:00 EST Bladder Scan CBC w/ Auto Diff Clostridium Difficile PCR Comprehensive Metabolic Panel eGFR Enteric Panel by PCR Fecal WBC Lactoferrin Regular Diet UA with Cult Rflx Urine Culture Diagnostic Tests Pending * Clostridium Difficile PCR 04/11/24 * Enteric Panel by PCR 04/11/24 * Fecal WBC Lactoferrin 04/11/24 * Urine Culture 04/11/24 [facility] 11-14-2024 Hospital Discharge instructions Patient Education 04/08/2024 13:06:37 Dysuria Dysuria Dysuria is pain or discomfort [...] Follow these instructions at home: Medicines Take pljy-eid-kgluspr and prescription medicines only as told by [...] provider. Document Revised: 12/22/2020 Document Reviewed: 12/22/2020 [employer] Patient Education 2023 [employer]. Follow Up Care 04/08/2024 11:46:19 With:AZUL GORMAN Address: [place] [address]- Business (1) When:04/11/2024 13:02:27 [facility] 11-14-2024 Evaluation + Plan noteExtracted from: Title:ED Note Author:Malick Ho PA-C te:04/08/24 Dysuria (R30.0: Dysuria) Orders: UA with Cult Rflx [facility] 11-14-2024 NoteED Patient Education Note Urology Dysuria Dysuria is pain or discomfort during [...] be caused by many different things, including: ??? Urinary tract infection. ??? Kidney stones or bladder stones. ??? Certain STIs (sexually transmitted infections), such as chlamydia. ??? Dehydration. ??? Inflammation of the tissues of the vagina. ??? Use of certain medicines. ??? Use of certain soaps or scented products that cause irritation. Follow these instructions at home: Medicines ??? Take hcbx-glu-orjydzz and prescription medicines only as told by your health care provider. ??? If you were prescribed an antibiotic medicine, take it as told by your health care provider. Donot stop taking the antibiotic even if you start to feel better. Eating and drinking ??? Drink enough fluid to keep your urine pale yellow. ??? Avoid caffeinated beverages, tea, and alcohol. These beverages can irritate the bladder and make dysuria worse. In males, alcohol may irritate the prostate. General instructions ??? Watch your condition for any changes. ??? Urinate often. Avoid holding urine for long periods of time. ??? If you are female, you should wipe from front to back after urinating or having a bowel movement. Use each piece of toilet paper only once. ??? Empty your bladder after sex. ??? Keep all follow-up visits. This is important. ??? If you had any tests done to find the cause of dysuria, it is up to you to get your test results. Ask your health care provider, or the department that is doing the test, when your results will be ready. Contact a health care provider if: ??? You have a fever. ??? You develop pain in your back or sides. ??? You have nausea or vomiting. ??? You have blood in your urine. ??? You are not urinating as often as you usually do. Get help right away if: ??? Your pain is severe and not relieved with medicines. ??? You cannot eat or drink without vomiting. ??? You are confused. ??? You have a rapid heartbeat while resting. ??? You have shaking or chills. ??? You feel extremely weak. Summary ??? Dysuria is pain or discomfort while urinating. Many different conditions can lead to dysuria. ??? If you have dysuria, you may have to urinate frequently or have the sudden feeling that you have to urinate (urgency). ??? Watch your condition for any changes. Keep all follow-up visits. ??? Make sure that you urinate often and drink enough fluid to keep your urine pale yellow. This information is not intended to replace advice given to you by your health care provider. Make sure you discuss any questions you have with your health care provider. Document Revised: 12/22/2020 Document Reviewed: 12/22/2020 [employer] Patient Education ? 2023 [employer].[facility] 04-07-2024 Hospital Discharge instructions Patient Education 04/07/2024 18:14:46 Dysuria Dysuria Dysuria is pain or discomfort [...] Follow these instructions at home: Medicines Take exbm-nlw-zsqgalz and prescription medicines only as told by [...] provider. Document Revised: 12/22/2020 Document Reviewed: 12/22/2020 [employer] Patient Education 2023 [employer]. Follow Up Care 04/07/2024 16:37:16 With:AZUL GORMAN Address: [address] [place] [address]- Business (1) When:04/10/2024 17:48:13 Comments:Return to the emergency room if your symptoms get worse, fever, vomiting or any new symptoms [facility] 11-13-2024 NoteED Patient Education Note Urology Dysuria Dysuria is pain or discomfort during [...] be caused by many different things, including: ??? Urinary tract infection. ??? Kidney stones or bladder stones. ??? Certain STIs (sexually transmitted infections), such as chlamydia. ??? Dehydration. ??? Inflammation of the tissues of the vagina. ??? Use of certain medicines. ??? Use of certain soaps or scented products that cause irritation. Follow these instructions at home: Medicines ??? Take cilq-qfi-pkvfjcr and prescription medicines only as told by your health care provider. ??? If you were prescribed an antibiotic medicine, take it as told by your health care provider. Donot stop taking the antibiotic even if you start to feel better. Eating and drinking ??? Drink enough fluid to keep your urine pale yellow. ??? Avoid caffeinated beverages, tea, and alcohol. These beverages can irritate the bladder and make dysuria worse. In males, alcohol may irritate the prostate. General instructions ??? Watch your condition for any changes. ??? Urinate often. Avoid holding urine for long periods of time. ??? If you are female, you should wipe from front to back after urinating or having a bowel movement. Use each piece of toilet paper only once. ??? Empty your bladder after sex. ??? Keep all follow-up visits. This is important. ??? If you had any tests done to find the cause of dysuria, it is up to you to get your test results. Ask your health care provider, or the department that is doing the test, when your results will be ready. Contact a health care provider if: ??? You have a fever. ??? You develop pain in your back or sides. ??? You have nausea or vomiting. ??? You have blood in your urine. ??? You are not urinating as often as you usually do. Get help right away if: ??? Your pain is severe and not relieved with medicines. ??? You cannot eat or drink without vomiting. ??? You are confused. ??? You have a rapid heartbeat while resting. ??? You have shaking or chills. ??? You feel extremely weak. Summary ??? Dysuria is pain or discomfort while urinating. Many different conditions can lead to dysuria. ??? If you have dysuria, you may have to urinate frequently or have the sudden feeling that you have to urinate (urgency). ??? Watch your condition for any changes. Keep all follow-up visits. ??? Make sure that you urinate often and drink enough fluid to keep your urine pale yellow. This information is not intended to replace advice given to you by your health care provider. Make sure you discuss any questions you have with your health care provider. Document Revised: 12/22/2020 Document Reviewed: 12/22/2020 [employer] Patient Education ? 2023 [facility] Evaluation + Plan noteExtracted from: Title:ED Note Author:Neva Newton, Didier Bray te:04/07/24 1. Dysuria (R30.0: Dysuria) Orders: Bladder Scan UA with Cult Rflx [facility] 11-10-2024 Hospital Discharge instructions Patient Education 04/04/2024 15:21:11 Weakness Weakness Weakness is a lack of strength. You may feel weak all over your body (generalized), or you may feelweak in one part of your body (focal). Common causes of weakness include: Infection and disorders of the body's defense system (immune system). Physical exhaustion. Internal bleeding or other blood loss that results in a lack of red blood cells (anemia). Dehydration. An imbalance in mineral (electrolyte) levels, such as potassium. Chronic kidney or liver disease. Cancer. Other causes include: Some medicines or cancer treatment. Stress, anxiety, or depression. Heart disease, circulation problems, or stroke. Nervous system disorders. Thyroid disorders. Loss of muscle strength because of age or inactivity. Poor sleep quality or sleep disorders. The cause of your weakness may not be known. Some causes of weakness can be serious, so it is important to see your health care provider. Follow these instructions at home: Activity Rest as needed. Try to get enough sleep. Most adults need 7 8 hours of quality sleep each night. Talk to your health care provider about how much sleep you need. Do exercises, such as arm curls and leg raises, for 30 minutes at least 2 days a week or as told byyour health care provider. This helps build muscle strength. Consider working with a physical therapist or water trainer who can develop an exercise plan to help you gain muscle strength. General instructions Take wxwz-efm-asljsih and prescription medicines only as told by your health care provider. Eat a healthy, well-balanced diet. This includes: ?Proteins to build muscles, such as lean meats and fish. ?Fresh fruits and vegetables. ?Carbohydrates to boost energy, such as whole grains. Drink enough fluid to keep your urine pale yellow. Keep all follow-up visits. This is important. Contact a health care provider if: Your weakness does not improve or gets worse. Your weakness affects your ability to think clearly. Your weakness affects your ability to do your normal daily activities. Get help right away if: You develop sudden weakness, especially on one side of your face or body. You have chest pain. You have trouble breathing or shortness of breath. You have problems with your vision. You have trouble talking or swallowing. You have trouble standing or walking. You are light-headed or lose consciousness. These symptoms may be an emergency. Get help right away. Call 911. Do not wait to see if the symptoms will go away. Do not drive yourself to the hospital. Summary Weakness is a lack of strength. You may feel weak all over your body or just in one specific part of your body. Weakness can be caused by a variety of things. In some cases, the cause may be unknown. Rest as needed, and try to get enough sleep. Most adults need 7 8 hours of quality sleep each night. Eat a healthy, well-balanced diet. This information is not intended to replace advice given to you by your health care provider. Make sure you discuss any questions you have with your health care provider. Document Revised: 04/14/2022 Document Reviewed: 04/14/2022 [employer] Patient Education 2023 [employer]. Follow Up Care 04/04/2024 12:44:18 With:AZUL VITA Address: [address] [place] [address] Business (1) When:04/07/2024 14:50:16 [facility] 11-10-2024 NoteED Patient Education Note Neurology Weakness Weakness is a lack of strength. You may feel weak all over your body (generalized), or you may feelweak in one part of your body (focal). Common causes of weakness include: ??? Infection and disorders of the body's defense system (immune system). ??? Physical exhaustion. ??? Internal bleeding or other blood loss that results in a lack of red blood cells (anemia). ??? Dehydration. ??? An imbalance in mineral (electrolyte) levels, such as potassium. ??? Chronic kidney or liver disease. ??? Cancer. Other causes include: ??? Some medicines or cancer treatment. ??? Stress, anxiety, or depression. ??? Heart disease, circulation problems, or stroke. ??? Nervous system disorders. ??? Thyroid disorders. ??? Loss of muscle strength because of age or inactivity. ??? Poor sleep quality or sleep disorders. The cause of your weakness may not be known. Some causes of weakness can be serious, so it is important to see your health care provider. Follow these instructions at home: Activity ??? Rest as needed. ??? Try to get enough sleep. Most adults need 7?8 hours of quality sleep each night. Talk to your health care provider about how much sleep you need. ??? Do exercises, such as arm curls and leg raises, for 30 minutes at least 2 days a week or as told by your health care provider. This helps build muscle strength. ??? Consider working with a physical therapist or water trainer who can develop an exercise plan to help you gain muscle strength. General instructions ??? Take [id number] and prescription medicines only as told by your health care provider. ??? Eat a healthy, well-balanced diet. This includes: ? Proteins to build muscles, such as lean meats and fish. ? Fresh fruits and vegetables. ? Carbohydrates to boost energy, such as whole grains. ??? Drink enough fluid to keep your urine pale yellow. ??? Keep all follow-up visits. This is important. Contact a health care provider if: ??? Your weakness does not improve or gets worse. ??? Your weakness affects your ability to think clearly. ??? Your weakness affects your ability to do your normal daily activities. Get help right away if: ??? You develop sudden weakness, especially on one side of your face or body. ??? You have chest pain. ??? You have trouble breathing or shortness of breath. ??? You have problems with your vision. ??? You have trouble talking or swallowing. ??? You have trouble standing or walking. ??? You are light-headed or lose consciousness. These symptoms may be an emergency. Get help right away. Call 911. ??? Do not wait to see if the symptoms will go away. ??? Do not drive yourself to the hospital. Summary ??? Weakness is a lack of strength. You may feel weak all over your body or just in one specific part of your body. ??? Weakness can be caused by a variety of things. In some cases, the cause may be unknown. ??? Rest as needed, and try to get enough sleep. Most adults need 7?8 hours of quality sleep each night. ??? Eat a healthy, well-balanced diet. This information is not intended to replace advice given to you by your health care provider. Make sure you discuss any questions you have with your health care provider. Document Revised: 04/14/2022 Document Reviewed: 04/14/2022 [employer] Patient Education ? 2023 [employer].[facility] 04-04-2024 Evaluation + Plan noteExtracted from: Title:ED Note Author:Malick Ho PA-C te:04/04/24 Weakness (R53.1: Weakness) Orders: Basic Metabolic Panel CBC w/ Auto Diff eGFR Extra Blue Tube Extra SST Tube Troponin 0 Hr. UA with Cult Rflx XR Chest Single View Future Appointments Appointment Date:04/05/2024 01:15:00 PM Scheduled Provider: Location:FT.OCCUPATIONAL Appointment Type:OT Jennifer () [facility] 11-04-2024 History of Present illness Narrative* Ciarra Loomis - 03/29/2024 2:15 PM EST Images from the original note were not included. Maegan Dye is a 74 y.o. female presents with chief complaint of left wrist open reduction and internal fixation. HPI: Maegan returns here today for repeat evaluation of the above. She did not do any therapy because theydid not call her. She also had a hospitalization. SUBJECTIVE: MEDICATIONS: Current Outpatient Medications Medication Instructions amLODIPine (Norvasc) 10 MG tablet Every 24 hours CeleBREX 200 MG capsule Every 24 hours cephalexin (Keflex) 500 MG capsule TAKE 1 CAPSULE BY MOUTH EVERY 12 HOURS FOR 5 DAYS cimetidine (Tagamet) 300 MG tablet 2 tablets Claritin 10 MG tablet Every 24 hours clonazePAM (KlonoPIN) 1 MG tablet 1 tablet, 3 times daily PRN clonazePAM (KLONOPIN) 0.5 mg, Nightly donepezil (Aricept) 5 MG tablet Every 24 hours DULoxetine (CYMBALTA) 60 mg, Daily RT fluticasone (Flonase) 50 MCG/ACT nasal spray SPRAY 2 SPRAYS INTO EACH NOSTRIL DAILY hyoscyamine (Levsin) 0.125 MG tablet Every 4 hours Lexapro 5 MG tablet Every 24 hours lisinopril 20 mg, Daily methenamine hippurate (Hiprex) 1 g tablet TAKE 1/2 TABLET BY MOUTH TWICE A DAY naloxone (Narcan) 4 mg/0.1 mL nasal spray FOR EMERGENCY USE ONLY. DO NOT SELF ADMINISTER nitrofurantoin (macrocrystal-monohydrate) (MACROBID) 100 mg, 2 times daily OLANZapine (ZyPREXA) 10 MG tablet 1 tablet, Nightly ondansetron ODT (Zofran-ODT) 4 MG disintegrating tablet Every 24 hours pantoprazole (ProtoNix) 40 MG EC tablet Every 24 hours potassium chloride CR (Klor-Con) 10 MEQ ER tablet TAKE 1 TABLET BY MOUTH EVERY OTHER DAY DIRECTED prazosin (Minipress) 2 MG capsule TAKE 2 CAPSULE BY MOUTH EVERY DAY AT BEDTIME FOR 30 DAYS 30 DAYS for 30 days sodium chloride 1 g tablet 1 tablet, 3 times daily traZODone (DESYREL) 150 mg, Nightly ALLERGIES: Allergies Allergen Reactions Cephalexin Anaphylaxis Pt stated that cause swelling Phenothiazines Anaphylaxis and Shortness of breath Other Reaction(s): Unknown, Unknown Reaction Other reaction(s): anaphylaxis, distonic reaction, Unknown Aminoglycosides Other Reaction(s): Unknown Bacitracin Swelling Other Reaction(s): Unknown, Unknown Butorphanol Other Reaction(s): delusions Fentanyl Other Reaction(s): Other: See Comments, Unknown Reaction Other reaction(s): Other: See Comments Gabapentin Unknown Haloperidol Unknown Hydrocodone-Acetaminophen Other Reaction(s): Other: See Comments Other reaction(s): Other: See Comments Methadone Other Reaction(s): seizures/syncope Methylphenidate Unknown Mirtazapine Unknown Oxycodone Other Reaction(s): Unknown Reaction Pentoxifylline Polymyxin B Other Reaction(s): Unknown Quetiapine Unknown Risperidone Unknown Shellfish-Derived Products Unknown Thiothixene Other Reaction(s): Unknown Reaction Valproic Acid Unknown SURGICAL HISTORY: Past Surgical History: Procedure Laterality Date ORIF WRIST FRACTURE Left 01/22/2024 DAP FAMILY HISTORY: No family history on file. SOCIAL HISTORY: Social History Tobacco Use Smoking status: Never Smokeless tobacco: Never Substance Use Topics Alcohol use: Never Drug use: Never Depression: Not on file REVIEW OF SYMPTOMS: The review of systems, history and current medications list are all reviewed today. OBJECTIVE: Visit Vitals Ht 5' 2 Wt 115 lb BMI 21.03 kg/m OB Status Unknown Smoking Status Never BSA 1.51 m Physical Exam Her orthopedic exam here today reveals no gross malalignment or deformity. Her wound is benign. Her neurocirculatory status is overall grossly intact. Range of motion is much improved. Examination of the x-rays AP, lateral and oblique of the left wrist total of three views with permanent images are saved to the record does show increased healing and consolidation. Her radial styloid screw maybe encroaching on her articular space. There is no evidence of new or further fracture. No further finding of significance. ASSESSMENT AND PLAN: Assessment/Plan Left wrist open reduction and internal fixation. The findings are discussed. We did recommend supportive care for her and continued progression of all activities. She does voice understanding of this. We would recommend continuing on and doing the therapy. She would like to go ahead with this. We did explain that if the therapists do not call, she should call either us or them directly so as to we know this is happening. She does voice understanding. All of her questions are otherwise answered. She is discharged in stable condition here today. Her return here will be in another month for a recheck with x-ray. Cosigned by Jose Stroud DO at 03/31/2024 7:56 AM EST documented in this encounterRanken Jordan Pediatric Specialty [id number] Hospital Discharge instructions Patient Education 03/18/2024 17:17:52 Choi Catheter Care, Female-[facility]) Choi Catheter Care, Female A Choi catheter is a soft, flexible tube that is placed into the bladder to drain urine. The catheter has a balloon to hold it inside the bladder. A Choi catheter may be inserted if: You leak [...] cotton underwear to absorb moisture and keep pelts skinner. 6. Keep the drainage bag below the [...] call with any concerns. Follow Up Care 03/18/2024 15:51:21 With:AZUL GORMAN Address: [address] [place], [place] [id number] Business (1) When:Within 3 Day(s) [facility] 10-24-2024 NoteED Patient Education Note Choi Catheter Care, Female A Choi catheter is a soft, flexible tube that is placed into the bladder to drain urine. The catheter has a balloon to hold it inside the bladder. A Choi catheter may be inserted if: ??? You leak urine or are not able to control when you urinate (urinary incontinence). ??? You are not able to urinate when you need to (urinary retention). ??? You had surgery. ??? You have certain medical conditions, such as multiple sclerosis, dementia, or a spinal cord injury. To Prevent Infection: 1. Wash your hands with soap and water before and after handling your catheter. 2. Using mild soap and warm water on a clean washcloth; twice a day. ??? Clean the area on your body closest to the catheter insertion site using a front to back motion, moving away from the catheter. Never wipe toward the catheter because this could sweep bacteria upinto the urethra and cause infection. ??? Remove all traces of soap. Pat the area dry with a clean towel. No tub baths. No lotions, powders, or sprays unless directed by your physician. 3. Keep the tube secure. Do not let the tube pull or catch when you are moving around. ??? Attach the catheter to your leg so [...] cotton underwear to absorb moisture and keep pelts skinner. 6. Keep the drainage bag below the [...] a clean towel. SEEK MEDICAL CARE IF: ??? Your urine is cloudy or smells. ??? Your catheter starts to leak. ??? Your catheter falls out or is pulled out. ??? You have pain, swelling, redness, or pus where the catheter enters the body. ??? You have pain in the abdomen, legs, lower back, or bladder. ??? You have a fever of 100.4 F (38 C) or higher ??? You see pink, red, dark, coffee colored, or pus-like urine. ??? You have nausea, vomiting, or chills. ??? You are not feeling better in 2 to 3 days or you are feeling worse. ??? You are not draining urine into the bag or your bladder feels full. MAKE SURE YOU: ??? Understand the reason you have the catheter. ??? Understand and follow these instructions to care for the catheter. ??? Will watch your condition. ??? Drink 6-8 glasses of water or liquids per day to keep your urine clear. ??? Avoid Caffeinated drinks. They can irritate the bladder and cause bladder spasms. ??? Keep your follow up appointments and call with any concerns.[facility]10-[facility]-20[facility] Evaluation + Plan noteExtracted from: Title:ED Note Author:Kinjal BYRD, Ana Polo Marlon e:03/18/24 1. Problem with Choi cathet er (T83.9XXA: Unspecified complication of genitourinary prosthetic device, implant and graft, initial encounter) Orders: Urinary Catheter Insertion 74-year-old female presents to the ER with concern for Chio catheter issue. In the ER patient is afebrile vital signs are stable, no acute distress. Patient's Choi catheter was accidentally dislodged last night, patient urinated twice in the ER without difficulty, she declines replacing the Choi catheter at this time. Concerns for urine attention were discussed, patient states that she does not want a catheter at this time. Patient anxious for discharge home, she is discharged home with instructions to follow PCP and urology. She is to return to the ER with any new worsening symptoms. Patient voices understanding and is agreeable to plan. [facility] 10-22-2024 Evaluation + Plan noteExtracted from: Title:Discharge Note Author:ARTIE RAMOS, Latonya Griffin ate:03/16/24 Stable Discharge To, Anticipated II - Home with responsible caregiver Discharged to - Home with family nursing home Discharge Diet(s): Regular (03/16/24 08:51:00) Prescriptions amoxicillin-clavulanate 875 mg-125 mg Tab, 1 tab(s), Oral, BID clonazepam 1 mg Tab, 1 mg= 1 tab(s), Oral, TID Colace 100 mg Cap, 100 mg= 1 cap(s), Oral, BID, Not taking Ensure Vanilla, See Instructions, 5 refills fluticasone 0.05 mg/inh Nasal [place], 2 spray(s), Nasal, Daily, 5 refills, Not taking ondansetron 4 mg Dis Tab, 4 mg= 1 tab(s), Oral, q6hr, PRN, Not taking potassium chloride 10 mEq Cap-ER, 10 mEq= 1 cap(s), Oral, Every other day, 2 refills Senokot 8.6 mg Tab, 17.2 mg= 2 tab(s), Oral, Once a day (at bedtime), PRN, 1 refills, Not taking traZODONE 150 mg Tab, 150 mg= 1 tab(s), Oral, Once a day (at bedtime), 3 refills Zofran ODT 4 mg Tab-Dis, 4 mg= 1 tab(s), Oral, TID, PRN, 1 refills, Not taking Home amLODIPine 5 mg Tab, 5 mg= 1 tab(s), Oral, Daily celecoxib 200 mg Cap donepezil 5 mg Tab, 5 mg= 1 tab(s), Oral, Once a day (at bedtime) escitalopram 5 mg oral tablet, 5 mg= 1 tab(s), Oral, Daily loratadine 10 mg oral capsule, 10 mg= 1 cap(s), Oral, Daily Miralax 17 gram packet, 17 gm, Oral, Daily olanzapine 7.5 mg oral tablet, 7.5 mg= 1 tab(s), Oral, Once a day (at bedtime) Pantoprazole [address] Tab phenazopyridine 200 mg Tab, 200 mg= 1 tab(s), Oral, TIDPC sodium chloride, 2 gram, Oral, TID sulfamethoxazole-trimethoprim 400 mg-80 mg Tab With When Contact Information AZUL GORMAN 03/23/2024 01:30 PM EDT [facility] [place] [address]- Business (1) Additional Instructions: Keep scheduled appointment on . Head Injury, Adult Addendum by Geraldine GARCIA MD on March 16, 2024 12:18:04 EDT Oxygen desaturation study was performed and patient qualified for oxygen at 2 L/min for COPD. Arrangements have been made for this. Patient will also need a rollator at home to help her with her ADLs. Patient demonstrated good use of the rollator in the hospital and can safely use it at home. Extracted from: Title:APSO Note Author:Latonya GARCIA MD Date: 74-year-old female with COPD , obstructive sleep apnea, hypertension, hyperlipidemia, bipolar disorder, PTSD, chronic hyponatremia, SIADH, chronic kidney disease stage III, GERD, history of leg DVT status post IVC filter, neurogenic bladder with intermittent self-catheterization currently with chronic Choi catheter presented because of a fall at home and was admitted with acute respiratory failure with hypoxia secondary to atelectasis, COPD, recurrent catheter associated urinary tract infection. 1. Acute respiratory failure with hypoxia (J96.01: Acute respiratory failure with hypoxia) Acute respiratory failure with hypoxia secondary to atelectasis and COPD. Continue on incentive spirometry. Continue on oxygen and wean down as tolerated. Oxygen desaturation study prior to discharge. Ordered: Incentive Spirometry Oxygen Desaturation Study 2. COPD with hypoxia (J44.9: Chronic obstructive pulmonary disease, unspecified) Continue nebulizer treatments as needed. Ordered: 3. Atelectasis (J98.11: Atelectasis) Incentive spirometry. 4. Catheter-associated urinary tract infection (T83.511A: Infection and inflammatory reaction due to indwelling urethral catheter, initial encounter) Multi organism catheter associated urinary tract infection. Continue on Augmentin for better coverage. Ordered: 5. Closed head injury (S09.90XA: Unspecified injury of head, initial encounter) Secondary to recent fall. Supportive care. Ordered: 6. Fall (W19.XXXA: Unspecified fall, initial encounter) Secondary to generalized debility. Seen by physical therapist recommends home health physical therapy. 7. Hyponatremia (E87.1: Hypo-osmolality and hyponatremia) Chronic hyponatremia secondary to SIADH. Continue on sodium chloride. 8. Neurogenic bladder disorder (N31.8: Other neuromuscular dysfunction of bladder) Chronic. Status post Choi catheter placement. 9. Stage 3 chronic kidney disease (N18.30: Chronic kidney disease, stage 3 unspecified) Secondary to hypertensive nephropathy. At baseline. 10. Charcot's joint of right foot (M14.671: Charcot's joint, right ankle and foot) Chronic. Supportive care. 11. HTN (hypertension) (I10: Essential (primary) hypertension) Blood pressure fairly controlled. Continue on amlodipine. Disposition: Home today pending oxygen desaturation study. I discussed the diagnosis and plan of care with the patient and son at the bedside. Moderate level of MDM based on addressing above issues. This documentation was transcribed using voice recognition software. Several attempts were made to ensure accuracy. However inadvertent computerized senior licensing manager errors may be present. Latonya Garcia. Hospitalist. Orders: Patient Specific Meds, clonazepam, Each, Oral, TID PRN Anxiety, Routine, Start date 03/15/24 12:21:00 EDT Communication Order Consult to Double Needle Operator Lockstitch Occupational Therapy Additional Tx Occupational Therapy Evaluate Patient, Develop a Plan of Care and Implement Plan Physical Therapy Additional Tx Physical Therapy Evaluate Patient, Develop a Plan of Care and Implement Plan Referral to Resource Center Extracted from: Title:APSO Note Author:ARTIE RAMOS, Mbanefo Date: 74-year-old female with COPD , obstructive sleep apnea, hypertension, hyperlipidemia, bipolar disorder, PTSD, chronic hyponatremia, SIADH, chronic kidney disease stage III, GERD, history of leg DVT status post IVC filter, neurogenic bladder with intermittent self-catheterization currently with chronic Choi catheter presented because of a fall at home and was admitted with acute respiratory failure with hypoxia secondary to atelectasis, COPD, recurrent catheter associated urinary tract infection. 1. Acute respiratory failure with hypoxia (J96.01: Acute respiratory failure with hypoxia) Acute respiratory failure with hypoxia secondary to atelectasis and COPD. Started patient on incentive spirometry. Continue on oxygen and wean down as tolerated. Oxygen desaturation study prior to discharge. Ordered: Oxygen Desaturation Study [facility] Hospital Care/Day Moderate 35 Minutes [id number] 2. COPD with hypoxia (J44.9: Chronic obstructive pulmonary disease, unspecified) Stable. Continue on nebulizer treatments as needed. Ordered: [facility] Hospital Care/Day Moderate 35 Minutes [id number] 3. Atelectasis (J98.11: Atelectasis) Contributing to above. Started patient on incentive spirometry. 4. Catheter-associated urinary tract infection (T83.511A: Infection and inflammatory reaction due to indwelling urethral catheter, initial encounter) Multi organism catheter associated urinary tract infection. Present on admission. Switched antibiotic to Augmentin for better coverage. Ordered: [facility] Hospital Care/Day Moderate 35 Minutes [address]1102 5. Closed head injury (S09.90XA: Unspecified injury of head, initial encounter) Secondary to recent fall. Supportive care. Ordered: [facility] Hospital Care/Day Moderate 35 Minutes 01732 6. Fall (W19.XXXA: Unspecified fall, initial encounter) Secondary to mechanical fall and generalized debility. Physical therapy evaluation. 7. Hyponatremia (E87.1: Hypo-osmolality and hyponatremia) Chronic hyponatremia secondary to SIADH. Continue on sodium chloride. 8. Neurogenic bladder disorder (N31.8: Other neuromuscular dysfunction of bladder) Chronic. Status post Choi catheter placement. 9. Stage 3 chronic kidney disease (N18.30: Chronic kidney disease, stage 3 unspecified) Secondary to hypertensive nephropathy. At baseline. 10. Charcot's joint of right foot (M14.671: Charcot's joint, right ankle and foot) Chronic. Supportive care. 11. HTN (hypertension) (I10: Essential (primary) hypertension) Blood pressure fairly controlled. Continue on amlodipine. Disposition: Pending physical therapy and Occupational Therapy evaluation. I discussed the diagnosis and plan of care with the patient and son at the bedside. Moderate level of MDM based on addressing above issues. This documentation was transcribed using voice recognition software. Several attempts were made to ensure accuracy. However inadvertent computerized senior licensing manager errors may be present. Latonya Garcia. Hospitalist. Orders: amoxicillin-clavulanate, 1 tab(s), Tab, Oral, BID, Start date 03/15/24 9:00:00 EDT Consult to Double Needle Operator Lockstitch Occupational Therapy Evaluate Patient, Develop a Plan of Care and Implement Plan Physical Therapy Evaluate Patient, Develop a Plan of Care and Implement Plan Extracted from: Title:Admission H & P Author:Moreno Tirado DO Date:03/14/24 74-year-old female admitted for acute respiratory failure with hypoxia secondary to COPD. She had a fall at home developing a close head injury but mainly bit her lip. She was seen March 11 for a UTI and a urinalysis was drawn and cultures were sent. She now has UTI with Enterococcus faecium, Enterococcus faecalis and Klebsiella pneumoniae. COVID is include untreated sleep apnea (she is she is semicompliant with her CPAP), non-O2 dependent COPD, hypertension, hyperlipidemia, bipolar disorder, PTSD, SIADH, chronic kidney disease stage III, history of DVT in the left leg status post Alex filter, agent orange exposure and neurogenic bladder in which she self caths. 1. Acute respiratory failure with hypoxia (J96.01: Acute respiratory failure with hypoxia) Secondary to COPD and untreated sleep apnea Supplemental O2 and wean as tolerated DuoNeb 4 times daily as needed 2. COPD with hypoxia (J44.9: Chronic obstructive pulmonary disease, unspecified) Supplemental O2 and wean as tolerated DuoNeb 4 times daily as needed 3. Acute UTI (N39.0: Urinary tract infection, site not specified) Will add fosfomycin to cover the Klebsiella and oral linezolid to cover both Enterococcus species 4. Closed head injury (S09.90XA: Unspecified injury of head, initial encounter) Stable Orders: acetaminophen, 650 mg = 2 tab(s), Tab, Oral, q6hr PRN Pain, Routine, Start date 03/14/24 12:51:00 EDT, 03/14/24 12:51:00 EDT albuterol-ipratropium, 3 mL, Soln-Inh, Inhalation, QID PRN Shortness of breath or wheezing, Routine, Start date 03/14/24 12:50:00 EDT fosfomycin, 1 EA, Powder, Oral, Once, Stop date 03/14/24 14:00:00 EDT, Routine, Start date 03/14/24 14:00:00 EDT heparin, 5,000 unit(s) = 1 mL, Injection, SubCutaneous, BID for 30 day(s), Stop date 04/13/24 20:59:00 EST, Routine, Start date 03/14/24 21:00:00 EDT, 03/14/24 12:51:00 EDT hydrALAZINE, 10 mg = 0.5 mL, Injection, IV Push, q6hr PRN Other (see comment), Routine, Start date 03/14/24 12:51:00 EDT, 03/14/24 12:51:00 EDT linezolid, 600 mg = 1 tab(s), Tab, Oral, BID for 10 day(s), Stop date 03/24/24 20:59:00 EDT, Routine, Start date 03/14/24 21:00:00 EDT, 03/14/24 13:28:00 EDT ondansetron, 4 mg = 2 mL, Injection, IV Push, q6hr PRN Nausea, Routine, Start date 03/14/24 12:51:00 EDT, 03/14/24 12:51:00 EDT Basic Metabolic Panel CBC w/ Auto Diff Communication Order Education Fall Risk Notify Provider Vital Signs Notify Provider Vital Signs Oxygen Protocol Precautions Pulse Oximetry Saline Lock Convert From IV Sodium Diet Up ad Graciela Vital Signs PLAN: 1. Patient is placed on the medical service 2. Will verify and resume meds from home 3. Supplemental O2 and wean as tolerated 4. For her UTI from 12 March, we added fosfomycin x 1 to cover the Klebsiella and oral linezolid to cover both Enterococcus species 5. DVT prophylaxis with SCDs and subcu heparin 6. Prior to discharge will need desat study Anticipate greater than 2 midnight stays for inpatient status Addendum by Luis Gandhi MD on March 14, 2024 20:33:54 EDT Completed Med Recc. Patient placed on Linezolid for Enterococcus UTI. Was given Fosamycin to cover the Klebsiella. Has not received any Linezolid yet. Due to drug-drug interactions, patient would be unable to take her home Lexapro and Trazodone. She has underlying Bipolar Disorder and PTSD. Looking at the sensitivities both Enterococcus species are susceptible to Ampicillin, so I switched the Linezolid to this so that patient can continue her home Psych meds. There is an automatic substitution for Ampicillin to Amoxicillin, so that is what was ordered. Does not appear she had any true UTI symptoms either, rather the culture was just positive. Extracted from: Title:ED Note Author:Santiago Harrington DO Date :03/14/24 Closed head injury (S09.90XA : Unspecified injury of head, initial encounter) Orders: ABO/Rh ABO/Rh History Check Antibody Screen Basic Metabolic Panel Blood Bank ID# CBC w/ Auto Diff CT Head or Brain w/o Contrast CT Maxillofacial w/o Contrast CT Spine Cervical w/o Contrast ECG 12 Lead Adult ED Cardiac Monitoring eGFR Hepatic Function Panel Lactic Acid Lipase Level NPO Diet Oxygen Therapy PT & PTT Pulse Oximetry Continuous Saline Lock Insert Troponin XR Chest Single View Addendum by Neva Newton, As trimia H on March 14, 2024 11:01:08 EDT The patient had been discharged. I was approached by the nurse that the patient is hypoxic 89% on room air. The patient states she does get hypoxic at times however she is not on oxygen at home. She has history of COPD. The patient was put on 2 L of oxygen and her saturation improved. The chest x-ray showed no acute cardiopulmonary disease. The case is discussed with the hospitalist and the patient will be admitted to the hospitalist services. Additional diagnosis: Hypoxia [facility] 10-22-2024 NoteDischarge Summary Admission and Discharge Information Admit Date/Time:03/14/2024 09:38 Admitting Physician - Buddy Tirado DO Admitting Diagnoses: 1. Acute respiratory failure with hypoxia, 03/14/2024 2. COPD with hypoxia, 03/14/2024 Discharge Order Date Discharge with Home Health - Ordered -- 03/16/24 8:52:00 EDT, After oxygen desaturation study Discharge Diagnoses 1. Acute respiratory failure with hypoxia, 03/14/2024 2. COPD with hypoxia, 03/14/2024 3. Atelectasis, 03/15/2024 4. Catheter-associated urinary tract infection, 03/15/2024 5. Closed head injury, 03/14/2024 6. Fall, 03/15/2024 7. Hyponatremia, 03/15/2024 8. Neurogenic bladder disorder, 03/15/2024 9. Stage 3 chronic kidney disease, 03/15/2024 10. Charcot's joint of right foot, 03/15/2024 11. 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 Hospital Course 74-year-old female with COPD, obstructive sleep apnea, hypertension, hyperlipidemia, bipolar disorder, PTSD, chronic hyponatremia, SIADH, chronic kidney disease stage III, GERD, history of leg DVT status post IVC filter, neurogenic bladder with intermittent self-catheterization?currently with chronic indwelling Choi catheter presented with complaints of fall at home. She was subsequently admitted to [facility] with acute respiratory failure with hypoxia secondary to atelectasis and COPD, multi organism catheter associated urinary tract infection, fall, closed head injury. She was treated with oxygen, nebulizer treatments, Augmentin. She participated well in physical therapy and was recommended home health?patient however refused. Patient's overall condition improved and she was anxious to be discharged home. She was seen prior to discharge and remained in an improved and stable condition for discharge and was subsequently discharged home. Discharge medications: Augmentin 875 mg twice daily x 6 days. Services Consulted Consult to Dietitian Adult - Ordered -- 03/14/24 13:44:57 EDT Double Needle Operator Lockstitch Consult - Completed -- 03/15/24 8:53:00 EDT, Interested in passport if she qualifies, Other Physical Exam Vitals & Measurements T: 36.7 ?C(Axillary) TMIN: 36.3 ?C(Axillary) TMAX: 36.8 ?C(Axillary) HR: 63(Monitored) RR: 18 BP: 123/69 SpO2: 91% General: alert, no acute distress, on nasal cannula oxygen. Skin: warm, dry Head: no trauma, normocephalic Neck: Trachea midline, no adenopathy, no tenderness Eye: normal conjunctiva, sclera clear ENMT: TM's clear, oral mucosa moist, no pharyngeal erythema or exudate Cardiovascular: regular rate and rhythm, normal peripheral perfusion Respiratory: Lungs CTA, respirations non labored Chest wall: no deformity. Gastrointestinal: soft, non distended, no tenderness, no guarding. Bowel sounds intact. Genitourinary: Choi catheter in place and draining urine. Back: No tenderness, Normal ROM, Normal alignment. Extremities: no deformity, no trauma, right lower extremity brace in place. Neurological: oriented x 4, LOC appropriate for age, CN II-XII intact, motor strength equal & normal bilaterally, sensation equal & normal bilaterally, speech normal Psychiatric: cooperative, affect appropriate for age, normal judgement, normal psychiatric thoughts. Tests Performed CT C-Spine w/o Contrast CT Head or Brain w/o Contrast CT Maxillofacial w/o Contrast XR Chest Single View Immunizations This Visit Not Given Vaccine Comments influenza virus vaccine, inactivated Expectation Not Necessary No discharge at this time Discharge Plan Patient Discharge Condition Stable Discharge Disposition Discharge To, Anticipated II - Home with responsible caregiver Discharged to - Home with family nursing home Discharge Diet Discharge Diet(s): Regular (03/16/24 08:51:00) Discharge Medication List Prescriptions amoxicillin-clavulanate 875 mg-125 mg Tab, 1 tab(s), Oral, BID clonazepam 1 mg Tab, 1 mg= 1 tab(s), Oral, TID Colace 100 mg Cap, 100 mg= 1 cap(s), Oral, BID, Not taking Ensure Vanilla, See Instructions, 5 refills fluticasone 0.05 mg/inh Nasal [place], 2 spray(s), Nasal, Daily, 5 refills, Not taking ondansetron 4 mg Dis Tab, 4 mg= 1 tab(s), Oral, q6hr, PRN, Not taking potassium chloride 10 mEq Cap-ER, 10 mEq= 1 cap(s), Oral, Every other day, 2 refills Senokot 8.6 mg Tab, 17.2 mg= 2 tab(s), Oral, Once a day (at bedtime), PRN, 1 refills, Not taking traZODONE 150 mg Tab, 150 mg= 1 tab(s), Oral, Once a day (at bedtime), 3 refills Zofran ODT 4 mg Tab-Dis (more content not included)...[facility]Result Comment: Electronically Signed By: ARTIE RAMOS, Latonya\.br\Date and Time Signed: 03/16/24 12:18 [id number] NoteGetWell Learning Participants Patient Humera Understands Education Yes SeeToo Education Video Avoiding Infections in the [facility]10-22-2024 Note Progress Note-Physician Assessment/Plan 74-year-old female with COPD, obstructive sleep apnea, hypertension, hyperlipidemia, bipolar disorder, PTSD, chronic hyponatremia, SIADH, chronic kidney disease stage III, GERD, history of leg DVT status post IVC filter, neurogenic bladder with intermittent self-catheterization?currently with chronic Choi catheter presented because of a fall at home and was admitted with acute respiratory failure with hypoxia secondary to atelectasis, COPD, recurrent catheter associated urinary tract infection. 1. Acute respiratory failure with hypoxia (J96.01: Acute respiratory failure with hypoxia) Acute respiratory failure with hypoxia?secondary to atelectasis and COPD. Continue on incentive spirometry. Continue on oxygen and wean down as tolerated. Oxygen desaturation study prior to discharge. Ordered: Incentive Spirometry Oxygen Desaturation Study 2. COPD with hypoxia (J44.9: Chronic obstructive pulmonary disease, unspecified) Continue nebulizer treatments as needed. Ordered: 3. Atelectasis (J98.11: Atelectasis) Incentive spirometry. 4. Catheter-associated urinary tract infection (T83.511A: Infection and inflammatory reaction due to indwelling urethral catheter, initial encounter) Multi organism catheter associated urinary tract infection. Continue on Augmentin for better coverage. Ordered: 5. Closed head injury (S09.90XA: Unspecified injury of head, initial encounter) Secondary to recent fall. Supportive care. Ordered: 6. Fall (W19.XXXA: Unspecified fall, initial encounter) Secondary to generalized debility. Seen by physical therapist?recommends home health physical therapy. 7. Hyponatremia (E87.1: Hypo-osmolality and hyponatremia) Chronic hyponatremia?secondary to SIADH. Continue on sodium chloride. 8. Neurogenic bladder disorder (N31.8: Other neuromuscular dysfunction of bladder) Chronic. Status post Choi catheter placement. 9. Stage 3 chronic kidney disease (N18.30: Chronic kidney disease, stage 3 unspecified) Secondary to hypertensive nephropathy. At baseline. 10. Charcot's joint of right foot (M14.671: Charcot's joint, right ankle and foot) Chronic. Supportive care. 11. HTN (hypertension) (I10: Essential (primary) hypertension) Blood pressure fairly controlled. Continue on amlodipine. Disposition: Home today pending oxygen desaturation study. I discussed the diagnosis and plan of care with the patient and son at the bedside. Moderate level of MDM based on addressing above issues. This documentation was transcribed using voice recognition software. Several attempts were made to ensure accuracy. However inadvertent computerized senior licensing manager errors may be present. Latonya Garcia. Hospitalist. Orders: Patient Specific Meds, clonazepam, Each, Oral, TID PRN Anxiety, Routine, Start date 03/15/24 12:21:00 EDT Communication Order Consult to Double Needle Operator Lockstitch Occupational Therapy Additional Tx Occupational Therapy Evaluate Patient, Develop a Plan of Care and Implement Plan Physical Therapy Additional Tx Physical Therapy Evaluate Patient, Develop a Plan of Care and Implement Plan Referral to Resource Center Subjective Seen and examined. Offers no new complaints today. Objective Vitals & Measurements T: 36.7 ?C(Axillary) TMIN: 36.3 ?C(Axillary) TMAX: 36.8 ?C(Axillary) HR: 63(Monitored) RR: 18 BP: 123/69 SpO2: 91% Intake & Output This visit (24 hour periods starting at 07:00 EDT) 03/16/24 * 03/15/24 03/14/24 Total Summary Intake mL 237 836 100 Output mL -- 2,650 2,300 Fluid Balance 237 -1,814 -2,200 Intake (3) Ensure mL 237 474 -- Oral Intake mL -- 360 100 ondansetron mL -- 2 -- Total 237 836 100 Output (1) Urine Voided mL -- 2,650 2,300 Total -- 2,650 2,300 Counts (1) Stool Count -- 4 4 * This column has not completed the indicated time period. Physical Exam General: alert, no acute distress, comfortable in bed on nasal cannula oxygen. Eating breakfast. Skin: warm, dry Head: no trauma, normocephalic Neck: Trachea midline, no adenopathy, no tenderness Eye: normal conjunctiva, sclera clear ENMT: TM's clear, oral mucosa moist, no pharyngeal erythema or exudate Cardiovascular: regular rate and rhythm, normal peripheral perfusion Respiratory: Lungs CTA, respirations non labored Chest wall: no deformity. Gastrointestinal: soft, non distended, no tenderness, no guarding. Bowel sounds intact. Back: No tenderness, Normal ROM, Normal alignment. Extremities: no deformity, no trauma, right lower extremity brace in place. Neurological: oriented x 4, LOC appropriate for age, CN II-XII intact, motor strength equal & normal bilaterally, sensation equal & normal bilaterally, speech normal Psychiatric: cooperative, affect appropriate for age, normal judgement, normal psychiatric thoughts. Lab Results No qualifying marlon (more content not included)...[facility] Comment on above:Result Comment: Electronically Signed By: ARTIE RAMOS, Mbanefo\.br\Date and Time Signed: 03/16/24 08:50 [id number] Note Interdisciplinary Note - Contaminated Land Consultant DARLIN received a consult for a referral to Passport. DARLIN made tc to [facility] and confirmed that patient is not current with a Passport Train Clerk. Referral was left on the intake line, requesting that they contact patient the end of the week to schedule a Passport Assessment. DARLIN will remain available.[facility]10-21-2024 NoteInterdisciplinary Note - PT PT evaluation completed. 6 Clicks: =HHPT vs. no needs. Pt. completes functional transfers withclose supervision and was able to sidestep at edge of bed with FWW with close supervision. Pt. is lethargic and complains of abdominal pain throughout PT eval. Pt. lives with her son. Plan to see pt.daily with recommendation of HHPT vs. no needs upon discharge depending on progress.[facility]10-21-2024 NoteProgress Note-Physician Assessment/Plan 74-year-old female with COPD, obstructive sleep apnea, hypertension, hyperlipidemia, bipolar disorder, PTSD, chronic hyponatremia, SIADH, chronic kidney disease stage III, GERD, history of leg DVT status post IVC filter, neurogenic bladder with intermittent self-catheterization?currently with chronic Choi catheter presented because of a fall at home and was admitted with acute respiratory failure with hypoxia secondary to atelectasis, COPD, recurrent catheter associated urinary tract infection. 1. Acute respiratory failure with hypoxia (J96.01: Acute respiratory failure with hypoxia) Acute respiratory failure with hypoxia?secondary to atelectasis and COPD. Started patient on incentive spirometry. Continue on oxygen and wean down as tolerated. Oxygen desaturation study prior to discharge. Ordered: Oxygen Desaturation Study [facility] Hospital Care/Day Moderate 35 Minutes 71688 2. COPD with hypoxia (J44.9: Chronic obstructive pulmonary disease, unspecified) Stable. Continue on nebulizer treatments as needed. Ordered: [facility] Hospital Care/Day Moderate 35 Minutes 05010 3. Atelectasis (J98.11: Atelectasis) Contributing to above. Started patient on incentive spirometry. 4. Catheter-associated urinary tract infection (T83.511A: Infection and inflammatory reaction due to indwelling urethral catheter, initial encounter) Multi organism catheter associated urinary tract infection. Present on admission. Switched antibiotic to Augmentin for better coverage. Ordered: [facility] Hospital Care/Day Moderate 35 Minutes 64493 5. Closed head injury (S09.90XA: Unspecified injury of head, initial encounter) Secondary to recent fall. Supportive care. Ordered: [facility] Hospital Care/Day Moderate 35 Minutes 57463 6. Fall (W19.XXXA: Unspecified fall, initial encounter) Secondary to mechanical fall and generalized debility. Physical therapy evaluation. 7. Hyponatremia (E87.1: Hypo-osmolality and hyponatremia) Chronic hyponatremia?secondary to SIADH. Continue on sodium chloride. 8. Neurogenic bladder disorder (N31.8: Other neuromuscular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 [facility] 10-18-2024 NoteED Patient Education Note Obstetrics and Gynecology Acute Urinary Retention, Female Acute urinary retention is a condition in which a person is unable to pass urine or can only pass alittle urine. This condition can happen suddenly and last for a short time. If left untreated, it can become long-term (chronic) and result in kidney damage or other serious complications. What are the causes? This condition may be caused by: ? Obstruction or narrowing of the tube that drains the bladder (urethra). This may be caused by surgery, problems with nearby organs, or injury to the bladder or urethra. ? Problems with the nerves in the bladder. ? Pelvic organ prolapse. ? Tumors in the area of the pelvis, bladder, or urethra. ? Vaginal childbirth. ? Bladder or urinary tract infection. ? Constipation. ? Certain medicines. What increases the risk? This condition is more likely to develop in women over age 50. Other chronic health conditions can increase the risk of acute urinary retention. These include: ? Diseases such as multiple sclerosis. ? Spinal cord injuries. ? Diabetes. ? Degenerative cognitive conditions, such as delirium or dementia. ? Psychological conditions. A woman may hold her urine due to trauma or because she does not want to use the bathroom. ? History of preexisting urinary retention. ? History of prior pelvic surgery, incontinence surgery, or radical pelvic surgery. What are the signs or symptoms? Symptoms of this condition include: ? Trouble urinating. ? Pain in the lower abdomen. How is this diagnosed? This condition is diagnosed based on a physical exam and your medical history. You may also have other tests, including: ? An ultrasound of the bladder or kidneys or both. ? Blood tests. ? A urine analysis. ? Additional tests may be needed, such as a CT scan, MRI, and kidney or bladder function tests. How is this treated? Treatment for this condition may include: ? Medicines. ? Placing a thin, sterile tube (catheter) into the bladder to drain urine out of the body. This is called an indwelling urinary catheter. After it is inserted, the catheter is held in place with a small balloon that is filled with sterile water. Urine drains from the catheter into a collection bag outside of the body. ? Behavioral therapy. ? Treatment for other conditions. If needed, you may be treated in the hospital for kidney function problems or to manage other complications. Follow these instructions at home: Medicines ? Take hmms-umu-felkncp and prescription medicines only as told by your health care provider. Avoidcertain medicines, such as decongestants, antihistamines, and some prescription medicines. Do not take any medicine unless your health care provider approves. ? If you were prescribed an antibiotic medicine, take it as told by your health care provider. Do not stop using the antibiotic even if you start to feel better. General instructions ? Do not use any products that contain nicotine or tobacco. These products include cigarettes, chewing tobacco, and vaping devices, such as e-cigarettes. If you need help quitting, ask your health care provider. ? Drink enough fluid to keep your urine pale yellow. ? If you have an indwelling urinary catheter, follow the instructions from your health care provider. ? Monitor any changes in your symptoms. Tell your health care provider about any changes. ? If instructed, monitor your blood pressure at home. Report changes as told by your health care provider. ? Keep all follow-up visits. This is important. Contact a health care provider if: ? You have uncomfortable bladder contractions that you cannot control (spasms). ? You leak urine with the spasms. Get help right away if: ? You have chills or a fever. ? You have blood in your urine. ? You have a catheter and the following happens: ? Your catheter stops draining urine. ? Your catheter falls out. Summary ? Acute urinary retention is a condition in which a person is unable to pass urine or can only passa little urine. If left untreated, this can result in kidney damage or other serious complications. ? One cause of this condition may be obstruction or narrowing of the tube that drains the bladder (urethra). This may be caused by surgery, problems with nearby organs, or injury to the bladder or urethra. ? Treatment may include medicines and placement of an indwelling urinary catheter. ? Monitor any changes in your symptoms. Tell your health care provider about any changes. This information is not intended to replace advice given to you by your health care provider. Make sure you discuss any questions you have with your health care provider. Document Revised: 01/31/2021 Document Reviewed: 01/31/2021 [employer] Patient Education ? 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 Document Revised: 12/22/2020 Document Reviewed: 12/22/2020 [employer] Patient Education 2023 [employer]id. Follow Up Care 03/11/2024 11:41:08 With:AZUL GORMAN Address: [address] [place] [address] [facility] [place] [address] Business (1) When:03/14/2024 14:02:11 Comments:Make sure to follow-up with your primary doctor as discussed. Return to the emergency room if your symptoms get worse, fever or any new symptoms [facility] 10-17-2024 NoteED Patient Education Note Urology Dysuria Dysuria is pain or discomfort during [...] be caused by many different things, including: ? Urinary tract infection. ? Kidney stones or bladder stones. ? Certain STIs (sexually transmitted infections), such as chlamydia. ? Dehydration. ? Inflammation of the tissues of the vagina. ? Use of certain medicines. ? Use of certain soaps or scented products that cause irritation. Follow these instructions at home: Medicines ? Take ebrf-kod-vqpwfde and prescription medicines only as told by your health care provider. ? If you were prescribed an antibiotic medicine, take it as told by your health care provider. Do not stop taking the antibiotic even if you start to feel better. Eating and drinking ? Drink enough fluid to keep your urine pale yellow. ? Avoid caffeinated beverages, tea, and alcohol. These beverages can irritate the bladder and make dysuria worse. In males, alcohol may irritate the prostate. General instructions ? Watch your condition for any changes. ? Urinate often. Avoid holding urine for long periods of time. ? If you are female, you should wipe from front to back after urinating or having a bowel movement.Use each piece of toilet paper only once. ? Empty your bladder after sex. ? Keep all follow-up visits. This is important. ? If you had any tests done to find the cause of dysuria, it is up to you to get your test results.Ask your health care provider, or the department that is doing the test, when your results will be ready. Contact a health care provider if: ? You have a fever. ? You develop pain in your back or sides. ? You have nausea or vomiting. ? You have blood in your urine. ? You are not urinating as often as you usually do. Get help right away if: ? Your pain is severe and not relieved with medicines. ? You cannot eat or drink without vomiting. ? You are confused. ? You have a rapid heartbeat while resting. ? You have shaking or chills. ? You feel extremely weak. Summary ? Dysuria is pain or discomfort while urinating. Many different conditions can lead to dysuria. ? If you have dysuria, you may have to urinate frequently or have the sudden feeling that you have to urinate (urgency). ? Watch your condition for any changes. Keep all follow-up visits. ? Make sure that you urinate often and drink enough fluid to keep your urine pale yellow. This information is not intended to replace advice given to you by your health care provider. Make sure you discuss any questions you have with your health care provider. Document Revised: 12/22/2020 Document Reviewed: 12/22/2020 [employer] Patient Education ? 2023 [employer]id.[facility] 03-11-2024 Evaluation + Plan noteExtracted from: Title:ED Note Author:Didier Hooks M.D. te:03/11/24 1. Dysuria (R30.0: Dysuria) Orders: phenazopyridine, 200 mg = 1 tab(s), Oral, TID, X 3 day(s), # 9 tab(s), Refills(s) 0, Pharmacy: [facility]/pharmacy #[id number], 154.9, cm, 03/11/24 11:50:00 EDT, Height/Length Dosing, 66, kg, 03/11/24 11:50:00 EDT, Weight Dosing UA with Cult Rflx [facility] 10-15-2024 Evaluation + Plan noteExtracted from: Title:ED Note Author:Mati Taylor DO Date :03/09/24 Acute UTI (urinary tract inf ection) (N39.0: Urinary tract infection, site not specified) Orders: nitrofurantoin, 100 mg = 1 cap(s), Cap, Oral, Once, Stop date 03/09/24 6:47:00 EDT, STAT, Start date 03/09/24 6:47:00 EDT, 03/09/24 6:47:00 EDT nitrofurantoin, 100 mg = 1 cap(s), Oral, q12hr, X 5 day(s), # 10 cap(s), Refills(s) 0, Pharmacy: [facility]/pharmacy #[id number], 154.9, cm, 03/09/24 6:37:00 EDT, Height/Length Dosing, 65.9, kg, 03/09/24 6:37:00 EDT, Weight Dosing UA with Cult Rflx Diagnostic Tests Pending * Urine Culture 03/09/24 [facility] 10-15-2024 Hospital Discharge instructions Patient Education 03/09/2024 06:54:09 Urinary Tract Infection, Adult, Fqqi-ky-Oebx Urinary Tract Infection, Adult A urinary tract [...] Follow these instructions at home: Medicines Take mgxq-qlt-vzzskao and prescription medicines only as told by [...] with your health care provider. Document Revised: 12/17/2020 Document Reviewed: 12/22/2020 [employer] Patient Education 2023 [employer]id. Follow Up Care 03/09/2024 06:22:39 With:AZUL GORMAN Address: [facility] [place] [address] [facility] (1) When:03/12/2024 06:48:23 Comments:Start taking the Macrobid twice daily until you have completed the course. Please follow-up with your primary care doctor for further evaluation management. Return to the ED for any new or worsening symptoms. [facility] 10-15-2024 NoteED Patient Education Note Obstetrics and Gynecology Urinary Tract Infection, Adult A urinary tract infection (UTI) is an infection of any part of the urinary tract. The urinary tractincludes: ? The kidneys. ? The ureters. ? The bladder. ? The urethra. These organs make, store, and get rid of pee (urine) in the body. What are the causes? This infection is caused by germs (bacteria) in your genital area. These germs grow and cause swelling (inflammation) of your urinary tract. What increases the risk? The following factors may make you more likely to develop this condition: ? Using a small, thin tube (catheter) to drain pee. ? Not being able to control when you pee or poop (incontinence). ? Being female. If you are female, these things can increase the risk: ? Using these methods to prevent : ? A medicine that kills sperm (spermicide). ? A device that blocks sperm (diaphragm). ? Having low levels of a female hormone (estrogen). ? Being . You are more likely to develop this condition if: ? You have genes that add to your risk. ? You are sexually active. ? You take antibiotic medicines. ? You have trouble peeing because of: ? A prostate that is bigger than normal, if you are male. ? A blockage in the part of your body that drains pee from the bladder. ? A kidney stone. ? A nerve condition that affects your bladder. ? Not getting enough to drink. ? Not peeing often enough. ? You have other conditions, such as: ? Diabetes. ? A weak disease-fighting system (immune system). ? Sickle cell disease. ? Gout. ? Injury of the spine. What are the signs or symptoms? Symptoms of this condition include: ? Needing to pee right away. ? Peeing small amounts often. ? Pain or burning when peeing. ? Blood in the pee. ? Pee that smells bad or not like normal. ? Trouble peeing. ? Pee that is cloudy. ? Fluid coming from the vagina, if you are female. ? Pain in the belly or lower back. Other symptoms include: ? Vomiting. ? Not feeling hungry. ? Feeling mixed up (confused). This may be the first symptom in older adults. ? Being tired and grouchy (irritable). ? A fever. ? Watery poop (diarrhea). How is this treated? ? Taking antibiotic medicine. ? Taking other medicines. ? Drinking enough water. In some cases, you may need to see a specialist. Follow these instructions at home: Medicines ? Take bqdy-bup-buirtnv and prescription medicines only as told by your doctor. ? If you were prescribed an antibiotic medicine, take it as told by your doctor. Do not stop takingit even if you start to feel better. General instructions ? Make sure you: ? Pee until your bladder is empty. ? Do not hold pee for a long time. ? Empty your bladder after sex. ? Wipe from front to back after peeing or pooping if you are a female. Use each tissue one time when you wipe. ? Drink enough fluid to keep your pee pale yellow. ? Keep all follow-up visits. Contact a doctor if: ? You do not get better after 1?2 days. ? Your symptoms go away and then come back. Get help right away if: ? You have very bad back pain. ? You have very bad pain in your lower belly. ? You have a fever. ? You have chills. ? You feeling like you will vomit or you vomit. Summary ? A urinary tract infection (UTI) is an infection of any part of the urinary tract. ? This condition is caused by germs in your genital area. ? There are many risk factors for a UTI. ? Treatment includes antibiotic medicines. ? Drink enough fluid to keep your pee pale yellow. This information is not intended to replace advice given to you by your health care provider. Make sure you discuss any questions you have with your health care provider. Document Revised: 12/17/2020 Document Reviewed: 12/22/2020 [employer] Patient Education ? 2023 [employer]id.[facility] 02-24-2024 Hospital Discharge instructions Patient Education 02/24/2024 12:52:47 Urinary Tract Infection, Adult Urinary Tract Infection, [...] Treatment for this condition includes: Antibiotic medicine. Nkiv-jsy-rtjhqnj medicines to treat discomfort. Drinking enough water [...] Follow these instructions at home: Medicines Take qppt-tys-sxgjkul and prescription medicines only as told by [...] with your health care provider. Document Revised: 12/17/2020 Document Reviewed: 12/22/2020 [employer] Patient Education 2023 [employer]id. Follow Up Care 02/24/2024 11:17:35 With:AZUL GORMAN Address: [facility] [place] [address] Business (1) When:02/27/2024 12:33:17 [facility] 10-01-2024 Evaluation + Plan noteExtracted from: Title:ED Note Author:Malick Ho PA-C te:02/24/24 Bacterial infection, unspeci fied (A49.9: Bacterial infection, unspecified) UTI (urinary tract infection), bacterial (N39.0: Urinary tract infection, site not specified) Orders: nitrofurantoin, 100 mg = 1 cap(s), Oral, BID, X 7 day(s), # 14 cap(s), Refills(s) 0, Pharmacy: [facility]/pharmacy #[id number], 162, cm, 02/24/24 11:22:00 EDT, Height/Length Dosing, 61.2, kg, 02/24/24 11:22:00 EDT, Weight Dosing UA with Cult Rflx Urine Culture Diagnostic Tests Pending * Urine Culture 02/24/24 [facility] 10-01-2024 NoteED Patient Education Note Obstetrics and Gynecology Urinary Tract Infection, Adult A urinary tract [...] more likely to develop this condition if: ? You have a urinary catheter that stays in place. ? You are not able to control when you urinate or have a bowel movement (incontinence). ? You are female and you: ? Use a spermicide or diaphragm for control. ? Have low estrogen levels. ? Are . ? You have certain genes that increase your risk. ? You are sexually active. ? You take antibiotic medicines. ? You have a condition that causes your flow of urine to slow down, such as: ? An enlarged prostate, if you are male. ? Blockage in your urethra. ? A kidney stone. ? A nerve condition that affects your bladder control (neurogenic bladder). ? Not getting enough to drink, or not urinating often. ? You have certain medical conditions, such as: ? Diabetes. ? A weak disease-fighting system (immunesystem). ? Sickle cell disease. ? Gout. ? Spinal cord injury. What are the signs or symptoms? Symptoms of this condition include: ? Needing to urinate right away (urgency). ? Frequent urination. This may include small amounts of urine each time you urinate. ? Pain or burning with urination. ? Blood in the urine. ? Urine that smells bad or unusual. ? Trouble urinating. ? Cloudy urine. ? Vaginal discharge, if you are female. ? Pain in the abdomen or the lower back. You may also have: ? Vomiting or a decreased appetite. ? Confusion. ? Irritability or tiredness. ? A fever or chills. ? Diarrhea. The first symptom in older adults may be confusion. In some cases, they may not have any symptoms until the infection has worsened. How is this diagnosed? This condition is diagnosed based on your medical history and a physical exam. You may also have other tests, including: ? Urine tests. ? Blood tests. ? Tests for STIs (sexually transmitted infections). If you have had more than one UTI, a cystoscopy or imaging studies may be done to determine the cause of the infections. How is this treated? Treatment for this condition includes: ? Antibiotic medicine. ? Vlqa-wbs-karfkhh medicines to treat discomfort. ? Drinking enough water to stay hydrated. If [...] medicines. Follow these instructions at home: Medicines ? Take vtxf-bxi-evzsvpg and prescription medicines only as told by your health care provider. ? If you were prescribed an antibiotic medicine, take it as told by your health care provider. Do not stop using the antibiotic even if you start to feel better. General instructions ? Make sure you: ? Empty your bladder often and completely. Do not hold urine for long periods of time. ? Empty your bladder after sex. ? Wipe from front to back after urinating or having a bowel movement if you are female. Use each tissue only one time when you wipe. ? Drink enough fluid to keep your urine pale yellow. ? Keep all follow-up visits. This is important. Contact a health care provider if: ? Your symptoms do not get better after 1?2 days. ? Your symptoms go away and then return. Get help right away if: ? You have severe pain in your back or your lower abdomen. ? You have a fever or chills. ? You have nausea or vomiting. Summary ? A urinary tract infection (UTI) is an infection of any part of the urinary tract, which includes the kidneys, ureters, bladder, and urethra. ? Most urinary tract infections are caused by bacteria in your genital area. ? Treatment for this condition often includes antibiotic medicines. ? If you were prescribed an antibiotic medicine, take it as told by your health care provider. Do not stop using the antibiotic even if you start to feel better. ? Keep all follow-up visits. This is important. This information is not intended to replace advice given to you by your health care provider. Make sure you discuss any questions you have with your health care provider. Document Revise (more content not included)...[facility] 02-23-2024 Hospital Discharge instructions Patient Education 02/23/2024 19:58:32 Acute Urinary Retention, Female, Ssjn-ot-Cbhk Acute Urinary Retention, Female Acute urinary retention [...] Follow these instructions at home: Medicines Take lrya-dgg-gkbooxm and prescription medicines only as told by [...] provider. Document Revised: 01/31/2021 Document Reviewed: 01/31/2021 [employer] Patient Education 2023 [employer]Bid. Follow Up Care 02/23/2024 18:03:01 With:AZUL GORMAN Address: [place] [address] Business (1) When:02/26/2024 19:24:47 Comments:Call Dr for diagnosis based follow up [facility] 09-30-2024 NoteED Patient Education Note Obstetrics and Gynecology Acute Urinary Retention, Female Acute urinary retention is when a person cannot pee (urinate) at all, or can only pee a little. This can come on all of a sudden. If it is not treated, it can lead to kidney problems or other seriousproblems. What are the causes? ? A problem with the tube that drains the bladder (urethra). ? Problems with the nerves in the bladder. ? The organs in the area between your hip bones (pelvis) slipping out of place (prolapse). ? Tumors. ? The of a baby through the vagina. ? An infection. ? Having trouble pooping (constipation). ? Certain medicines. What increases the risk? Women over age 50 are more at risk. Other conditions also can increase risk. These include: ? Diseases, such as multiple sclerosis. ? Injury to the spinal cord. ? Diabetes. ? A condition that affects the way the brain works, such as dementia. ? Holding back urine due to trauma or because you do not want to use the bathroom. ? History of not being able to pee or peeing too little. ? Having had surgery in the area between your hip bones. What are the signs or symptoms? ? Trouble peeing. ? Pain in the lower belly. How is this treated? Treatment for this condition may include: ? Medicines. ? Placing a thin, germ-free tube (catheter) into the bladder to drain pee out of the body. ? Therapy to treat mental health conditions. ? Treatment for conditions that may cause this. If needed, you may be treated in the hospital for kidney problems or to manage other problems. Follow these instructions at home: Medicines ? Take ndcz-gge-ayxmimi and prescription medicines only as told by your doctor. Ask your doctor what medicines you should stay away from. ? If you were given an antibiotic medicine, take it as told by your doctor. Do not stop taking it even if you start to feel better. General instructions ? Do not smoke or use any products that contain nicotine or tobacco. If you need help quitting, askyour doctor. ? Drink enough fluid to keep your pee pale yellow. ? If you were sent home with a tube that drains the bladder, take care of it as told by your doctor. ? Watch for changes in your symptoms. Tell your doctor about them. ? If told, keep track of changes in your blood pressure at home. Tell your doctor about them. ? Keep all follow-up visits. Contact a doctor if: ? You have spasms in your bladder that you cannot stop. ? You leak pee when you have spasms. Get help right away if: ? You have chills or a fever. ? You have blood in your pee. ? You have a tube that drains pee from the bladder and these things happen: ? The tube stops draining pee. ? The tube falls out. Summary ? Acute urinary retention is when you cannot pee at all or you pee too little. ? If this is not treated, it can cause kidney problems or other serious problems. ? If you were sent home with a tube (catheter) that drains pee from the bladder, take care of it astold by your doctor. ? Watch for changes in your symptoms. Tell your doctor about them. This information is not intended to replace advice given to you by your health care provider. Make sure you discuss any questions you have with your health care provider. Document Revised: 01/31/2021 Document Reviewed: 01/31/2021 [employer] Patient Education ? 2023 [employer]Bid.[facility] 02-23-2024 Evaluation + Plan note Diagnostic Tests Pending * UA with Cult Rflx 02/23/24 [facility] [id number] History of Present illness Narrative* Ciarra Loomis - 02/23/2024 10:30 AM EDT Images from the original note were not included. Maegan Dye is a 74 y.o. female presents with chief complaint of left wrist open reduction and internal fixation. HPI: Maegan returns here today for repeat evaluation of the above. She continues to make slow steady progression. She still states miserable pain to the area. She denies any new or interval symptoms. She has been seen in the Emergency Room multiple times. This does appear to be for other issues. SUBJECTIVE: MEDICATIONS: Current Outpatient Medications Medication Instructions amLODIPine (Norvasc) 10 MG tablet Every 24 hours CeleBREX 200 MG capsule Every 24 hours cephalexin (Keflex) 500 MG capsule TAKE 1 CAPSULE BY MOUTH EVERY 12 HOURS FOR 5 DAYS cimetidine (Tagamet) 300 MG tablet 2 tablets Claritin 10 MG tablet Every 24 hours clonazePAM (KlonoPIN) 1 MG tablet 1 tablet, Oral, 3 times daily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 [address] Psychiatry Progress Note Signed Patient: Maegan Dye MR#: [id number] 9 : 1950 Acct:[id number] Age/Sex: 72 / F Adm Date: 2 Loc: Room: [address] [place] [address] Type : ADM IN Attending Dr: Merary [...] signed by Rogelio De MD> 05/31/22 0914 [facility] Work Phone: 1(311) 601-732001-05-2023 Progress note Author Rogelio casanova [facility] May 30, 2022 6:55am Note Date/Time May 30, 2022 6: 53am [facility] [address] [place] [address] Psychiatry Progress Note Signed Patient: Maegan Dye MR#: [id number] 9 : 1950 Acct:[id number] Age/Sex: 72 / F Adm Date: 2 Loc: Room: [address] [place] [address] Type : ADM IN Attending Dr: Merary [...] signed by Rogelio De MD> 05/30/22 0655 [facility] Work Phone: 1(701) 648-352101-04-2023 Progress note Author Rogelio casanova [facility] May 29, 2022 1:13pm Note Date/Time May 29, 2022 12 :56pm [facility] [address] [place] [address] Psychiatry Progress Note Signed Patient: Maegan Dye MR#: [id number] 9 : 1950 Acct:[id number] Age/Sex: 72 / F Adm Date: 2 Loc: 1S Room: [address] [place] [address] Type : ADM IN Attending Dr: Merary [...] signed by Rogelio De MD> 05/29/22 1313 [facility] Work Phone: 1(998) 230-297701-03-2023 Hospital Discharge instructions Additional Instructions Choi catheter inserted 05/28/22. Reason:Urinary Retention Regular diet Activity as tolerated Boost Plus TID Mental health will be managed by rounding physicians at [facility] Work Phone: 1(950) 960-265401-03-2023 Progress note Author Rogelio casanova [facility] May 28, 2022 8:21am Note Date/Time May 28, 2022 8: 19am [facility] [address] [place], [place] [address] Psychiatry Progress Note Signed Patient: Maegan Dye MR#: [id number] 9 : 1950 Acct:[id number] Age/Sex: 72 / F Adm Date: 2 Loc: 1S Room: 5F7124-3 Type : ADM IN Attending Dr: Merary [...] Zero. Documented By: Rogelio De MD 3 18 Signed By: <Electronically signed by Rogelio De MD> 05/28/22 08 [facility] Work Phone: 1(457) 761-855401-02-2023 Progress note Author Christelle Faith [facility] May 27, 2022 6:45pm Note Date/Time May 27, 2022 6: 00pm [facility] [address] [place] [address] Hospitalist Progress Note Signed Patient: Maegan Dye MR#: [id number] 9 : 1950 Acct:[id number] Age/Sex: 72 / F Adm Date: 2 Loc: Room: [address] [place] [address] Type: ADM IN Attending Dr: Merary De [...] morphine pump managed by pain specialist in [facility]. Patient reports running empty and she [...] spray 05/26/22 09:00 05/27/22 09:15 Fluticasone Propionate Mulberry 120 Mulberry/16 Gm Bottle INTRANASAL 05/26/23 08:59 2 spray [...] use Chronic Pain -Morphine pump, follows with [place] area pain management Dr Nora Mccallum. Nursingto [...] and psychotherapy Documented By: NENA Barton 3 7790 Signed By: <Electronically signed by NENA Faith> 05/27/22 8918 [facility] Work Phone: 1(133) 518-269901-02-2023 Progress note Author Rogelio casanova [facility] May 27, 2022 12:55pm Note Date/Time May 27, 2022 10 :18am [facility] [address] [place] [address] Psychiatry Progress Note Signed with Addenda Patient: Maegan Dye MR#: [id number] 9 : 1950 Acct:[id number] Age/Sex: 72 / F Adm Date: 2 Loc: Room: [address] [place] [address] Type : ADM IN Attending Dr: Merary [...] fractures was transferred to our facility from [facility] due to difficulty caring for herself, [...] signed by MD REED Morrison> 05/27/22 1137 [facility] Work Phone: 1(243) 499-964801-01-2023 History and physical note Author Rogelio casanova [facility] May 26, 2022 9:13am Note Date/Time May 26, 2022 9: 07am [facility] [address] [place] [address] Psychiatry H&P Signed Patient: Maegan Dye MR#: [id number] 9 : 1950 Acct:[id number] Age/Sex: 72 / F Adm Date: 2 Loc: Room: [address] [place] [address] Type: ADM IN Attending Dr: Merary De MD Copies to: MD Tomas De León, ~ Date of Service: 05/26/2022 HPI History of Present Illness History of present illness: Ms. Dye is a 72 year old female with a reported history of depression, hypertension, anxiety, SIADH, COPD, GERD, CKD, neurogenic bladder requiring intermittent self-catheterization, history of UTIs and multiple fractures was transferred to our facility from [facility] due to difficulty caring for herself, [...] Appearance Clear Urine pH 5.5 Ur Specific [place] 1.018 Urine Protein 30 H Urine Glucose [...] signed by Rogelio De MD> 05/26/22 0913 [facility] Work Phone: 1(222) 789-132512-31-2022 Consult note Author Rome Luciano [facility] May 25, 2022 7:42pm Note Date/Time May 25, 2022 7:33pm [facility] [address] [place] [address] Hospitalist Consult Note Signed Patient: Maegan Dye MR#: [id number] 9 : 1950 Acct:[id number] Age/Sex: 72 / F Adm Date: 2 Loc: Room: [address] [place] [address] Type: ADM IN Attending Dr: Merary De MD Copies to: MD Tomas De León DO Obaydah M Daromar, MD~ [...] fractures was transferred to our facility from [facility] for inpatient psychiatry service. Hospitalist service is being consulted for confusion and pain management for right ankle fracture. During my encounter, patient is alert and awake and oriented x3. She does have periods of confusion. Seems to be very traumatized by her son, saying he treatshsalvatore cortez, kept saying during my evaluation that he [...] in the past. Documents were reviewed from [facility]. Patient had CBC there with [...] -Afebrile, no leukocytosis according to labs at [facility] -Repeat CBC, CMP and UA [...] <Electronically signed by Rome Luciano MD> 05/25/221941 [facility] Work Phone: 1(479) 360-460812-30-2022 Evaluation + Plan noteExtracted from: Title:ED Note Author:Santiago Harrington DO. Date :05/24/22 Hallucinations (R44.3: Hallu cinations, unspecified) Orders: Automated Diff CBC w/ Auto Diff Communication Order Comprehensive Metabolic Panel Consult to Mental Health Drug Screen Urine ECG 12 Lead Adult eGFR Ethanol Level Extra Blue Tube Extra SST Tube Rapid COVID Antigen ([facility]) Transfer Patient UA With Cult Reflex Future Appointments Appointment Date:05/28/2022 01:00:00 PM Scheduled Provider:Tomas GARCIA DO Location:[facility] Appointment Type: Open Future Scheduled Tests Laboratory* TIBC Calculated 08/06/21 * Sodium Level 12/20/21 * Basic Metabolic Panel 04/25/22 * Ferritin 08/06/21 * Folate Level 08/06/21 * Hemoglobin 12/20/21 * Iron Level 08/06/21 * Lipase Level 08/06/21 * Vitamin B12 Level 08/06/21 Radiology* XR Foot 3+ Views Right 07/25/21 [facility]12-09-2022 Hospital Discharge instructions Patient Education 05/03/2022 [...] Follow these instructions at home: Medicines Take uxim-svx-jfzinoq and prescription medicines only as told by your health care provider. Ask your health care provider if the medicine prescribed to you: ?Requires you to avoid driving or using heavy machinery. ?Can cause constipation. You may need to take these actions to prevent or treat constipation: ?Drink enough fluid to keep your urine pale yellow. ?Take mqbf-hnj-owfrvkc or prescription medicines. ?Eat foods that are [...] 05/06/2002 Document Revised: 05/31/2019 Document Reviewed: 05/31/2019 [employer] Patient Education 2020 [employer]. Follow Up Care 05/03/2022 11:40:28 With:Tomas GARCIA Address: [address] [place] [address]- Business (1) When:05/06/2022 12:09:30 [facility]12-01-2022 Evaluation + Plan note Future Scheduled Tests Laboratory* Basic Metabolic Panel 04/25/22 [facility]12-01-2022 Hospital Discharge instructions Follow Up Care 04/25/2022 07:59:39 With:Tomas GARCIA DO, FAM Address: [address] [place] [address]- When:Within 3 Month(s) [facility] 11-30-2022 NoteHNO ID: [id number] Author: Ike Cervantes APRN.TECHNICIAN Service: ? Author Type: Nurse Specialist Type: Progress Notes Filed: 04/26/2022 1:09 PM Note Text: [facility] NOTE NAME: CAS DYE NO.: [id number] DATE OF SERVICE: 04/24/2022 [facility] DATE OF : 1950 REASON FOR VISIT: The patient is a resident of [facility]. This is a skilled visit for hyponatremia, [...] that I just signed a prescription for Rock. The patient states Rock does nothing for her. I did express [...] the patient will follow up with Dr. Garcia, who is her primary care physician and [...] care physician. DICTATED BY: KYA Bunn/Gwen JOB# [id number] cc:[facility]11-30-2022 History of Present illness Narrative* Ike Cervantes APRN.TECHNICIAN - 04/24/2022 12:00 AM EST [facility] NOTE NAME: CAS DYE NO.: [id number] DATE OF SERVICE: 04/24/2022 [facility] DATE OF : 1950 REASON FOR VISIT: The patient is a resident of [facility]. This is a skilled visit for hyponatremia, [...] that I just signed a prescription for Rock. The patientstates Rock does nothing for her. I did express [...] the patient will follow up with Dr. Garcia, who is her primary care physician and [...] with primary care physician. DICTATED BY: KYA Bunn JOB# [id number] cc:[facility] documented in this encounterSalem [facility]11-28-2022 NoteHNO ID: [id number] Author: Matthew Gavin Service: ? Author Type: Physician Type: Progress Notes Filed: 04/24/2022 6:09 PM Note Text: [facility] NOTE NAME: CAS DYE NO.: [id number] DATE OF SERVICE: 04/22/2022 [facility] DATE OF : 1950 New Patient History and Physical HISTORY OF PRESENT ILLNESS: The patient is a 72-year-old female who is admitted to us from [facility] with a diagnosis of acute on [...] of morphine. She is followed by pain wound care rn in [place]. Her condition stabilized and improved and she is now admitted to our facility for continued therapy. REVIEW OF SYSTEMS: She is currently resting in bed. She is alert and responsive. Her main concern is that she wants her indwelling Choi catheter reinserted. She claims that she has [...] is followed by her pain specialist in [place]. She does have a morphine pump, but [...] In the meantime she is receiving p.r.n. Rock. 3. Questionable history of urinary retention - she is indicating that she had a chronic (more content not included)...[facility] 04-22-2022 History of Present illness Narrative* Matthew Gavin - 04/22/2022 12:00 AM EST [facility] NOTE NAME: CAS DYE NO.: [id number] DATE OF SERVICE: 04/22/2022 [facility] DATE OF : 1950 New Patient History and Physical HISTORY OF PRESENT ILLNESS: The patient is a 72-year-old female who is admitted to us from [facility] with a diagnosis of acute on [...] of morphine. She is followed by pain wound care rn in [place]. Her condition stabilized and improved and she is now admitted to our facility for continued therapy. REVIEW OF SYSTEMS: She is currently resting in bed. She is alert and responsive. Her main concern is that she wants her indwelling Choi catheter reinserted. She claims that she has [...] is followed by her pain specialist in [place]. She does have a morphine pump, but [...] In the meantime she is receiving p.r.n. Rock. 3. Questionable history of urinary retention - she is indicating that she had a chronic indwelling Choi catheter after hospitalization as per her urologist. [...] closely. DICTATED BY: MD SHREE Lim/Gwen JOB# [id number] cc:[facility] documented in this encounterSalem Regional Medical Center11-25-2022 Evaluation + Plan note Extracted from: Title:Discharge Note Author:DREW AGACNP-BC, Re haleye Date:04/19/22 Hemodynamically stable condi tion Discharge To, Anticipated II - [facility] Unit Discharged to - Home with family care Discharge Status: Improved Discharge Instructions Given: To patient Discharge disposition: Home Prescriptions reviewed with Patient 47 minutes spent in discharge time with patient, account solutions analyst, collaborating MD, nursing staff, [facility] Discharge Diet(s): Regular, Fat Modified- Low cholesterol, [...] tab(s), Oral, TID fluticasone 0.05 mg/inh Nasal Mulberry, 2 spray(s), Nasal, Daily, 5 refills potassium [...] With When Contact Information Pain Clinic: [facility] [phone] Additional Instructions: Call for followup appointment - to have pain pump filled Tomasjanay GARCIA Within 2 to 4 days [address] [place] [address]- [facility] (1) Additional Instructions: Hyponatremia, Rsxk-lk-Fkqk Extracted from: Title:APSO Note Author:Jeanette RAMOS, Abeer Date:06/18/21 Hyponatremia - Acute on chronic baseline around 130, non compliance with home meds, Na 125 on admission Na level up to 129 today am -Fluid restrict to 1.5 L /day , discussed over the phone with account solutions analyst yesterday -Check osmol urine and blood, check urine Na Na level Q4-6 hrs -Consult nephrology edi manager consult for placement / PT / [...] Ordered: Initial Hospital Care/Day Moderate [id number] in Status Sodium Level 2. Chronic [...] EST fluticasone nasal, 0.1 mg, 2 spray(s), Mulberry, Nasal, Daily, Routine, Start date 04/18/22 9:00:00 [...] to ensure accuracy , however, inadvertently computerized senior licensing manager mistakes may be present . Extracted from: Title:Admission H & P Author:Jeanette RAMOS, Chidi Date:04/17/22 Hyponatremia - Acute on chronic baseline around 130, non compliance with home meds -Fluid restrict to 1.5 L /day , discussed over the phone with Dr. Orozco -Check osmol urine and blood, check urine Na Na level Q4 -Consult nephrology: edi manager consult for placement / PT / [...] EST fluticasone nasal, 0.1 mg, 2 spray(s), Mulberry, Nasal, Daily, Routine, Start date 04/18/22 9:00:00 [...] to ensure accuracy , however, inadvertently computerized senior licensing manager mistakes may be present . Extracted from: [...] Appointments Appointment Date:04/29/2022 11:40:00 AM Scheduled Provider:Tomas GARCIA DO Location:[facility] Appointment Type: Open Diagnostic Tests Pending * Cortisol 04/18/22 Future Scheduled Tests Laboratory* TIBC Calculated 08/06/21 * Sodium Level 12/20/21 * Ferritin 08/06/21 * Folate Level 08/06/21 * Hemoglobin 12/20/21 * Iron Level 08/06/21 * Lipase Level 08/06/21 * Vitamin B12 Level 08/06/21 Radiology* XR Foot 3+ Views Right 07/25/21 [facility]11-25-2022 Hospital Discharge instructions Patient Education 04/19/2022 11:47:10 Hyponatremia, Ibnn-xc-Invn Hyponatremia Hyponatremia is when the amount of [...] symptoms. Follow these instructions at home: Take dxel-fxr-sixpvnh and prescription medicines only as told by [...] 01/22/2012 Document Revised: 07/29/2019 Document Reviewed: 04/15/2019 [employer] Patient Education 2020 [employer] Follow Up Care 04/17/2022 10:15:25 With:Pain Clinic: [facility] [phone] Address:Unknown When: Unknown Comments:Call for followup appointment - to have pain pump filled With:Tomas GARCIA Address: [address] [place] [address]- Business (1) When:2 to 4 days [facility]11-16-2022 Evaluation + Plan noteExtracted from: Title:ED Note Author:Vic BYRD, Malick Bray te:04/10/22 1. Dysuria (R30.0: Dysuria) Orders: diazepam, 5 mg = 1 tab(s), Tab, Oral, Once, Stop date 04/10/22 17:47:00 EST, STAT, Start date 04/10/22 17:47:00 EST, 04/10/22 17:47:00 EST UA With Cult Reflex Future Appointments Appointment Date:04/29/2022 11:40:00 AM Scheduled Provider:Tomas GARCIA DO Location:[facility] Appointment Type: Open Future Scheduled Tests Laboratory* TIBC Calculated 08/06/21 * Sodium Level 12/20/21 * Ferritin 08/06/21 * Folate Level 08/06/21 * Hemoglobin 12/20/21 * Iron Level 08/06/21 * Lipase Level 08/06/21 * Vitamin B12 Level 08/06/21 Radiology* XR Foot 3+ Views Right 07/25/21 [facility]11-07-2022 Miscellaneous Notes* Telephone Encounter - Adriane Fischer LPN - 04/01/2022 1:51 PM EST Patient was transferred to this proposal manager writer, screaming in the telephone saying that she needs more catheters. She stated in a previous phone call that the last batch of catheters were stolen out of her car. Reached out to [address] [place] [address] to see what needs to take place for catheters to be delivered to patientat this time. Patients son will be coming to [facility] to slate picker sample catheters, until patient [...] transferred to UROL nurse. documented in this encounterSalem [facility] Center11-03-2022 Evaluation + Plan note Diagnostic Tests Pending * Urine Culture 03/28/22 Future Scheduled Tests Laboratory* TIBC Calculated 08/06/21 * Sodium Level 12/20/21 * Ferritin 08/06/21 * Folate Level 08/06/21 * Hemoglobin 12/20/21 * Iron Level 08/06/21 * Lipase Level 08/06/21 * Vitamin B12 Level 08/06/21 Radiology* XR Foot 3+ Views Right 07/25/21 [facility]10-10-2022 Hospital Discharge instructions Patient Education 03/04/2022 [...] 01/22/2005 Document Revised: 11/10/2018 Document Reviewed: 05/13/2017 [employer] Patient Education 2020 [employer]id. 03/04/2022 13:54:46 Urinary Tract Infection, Adult Urinary [...] Treatment for this condition includes: Antibiotic medicine. Jpgx-jfz-bnrbroj medicines to treat discomfort. Drinking enough water [...] Follow these instructions at home: Medicines Take benv-ysf-mzvpxdy and prescription medicines only as told by [...] 02/19/2006 Document Revised: 04/29/2019 Document Reviewed: 11/19/2018 [employer] Patient Education 2019 [employer]. Follow Up Care 03/04/2022 12:12:59 With:Tomas GARCIA DO, FAM Address: [address] [phone]- When: Unknown [facility] 10-10-2022 Evaluation + Plan note Diagnostic Tests Pending * Urine Culture 03/04/22 Future Scheduled Tests Laboratory* TIBC Calculated 08/06/21 * Sodium Level 12/20/21 * Basic Metabolic Panel 03/27/21 * Ferritin 08/06/21 * Folate Level 08/06/21 * Hemoglobin 12/20/21 * Iron Level 08/06/21 * Lipase Level 08/06/21 * Vitamin B12 Level 08/06/21 Radiology* XR Foot 3+ Views Right 07/25/21 [facility]09-26-2022 Hospital Discharge instructions Patient Education 02/17/2022 22:48:16 Accidental Drug Poisoning, Adult Accidental Drug Poisoning, Adult Accidental drug poisoning happens when a person accidentally takes too much of a substance, such asa prescription medicine, an zwpw-mza-vqvhmpx medicine, a vitamin, a supplement, or an [...] medicines. Cocaine. Heroin. Multivitamins that contain iron. Duqq-kus-zreiqmx cold and cough medicines. What increases the [...] Follow these instructions at home: Medicines Take kcsb-whm-xgvhvki and prescription medicines only as told by your health care provider. Before taking a new medicine, ask your health care provider whether the medicine: ?May cause side effects. ?Might react with other medicines. Keep a list of all the medicines that you take, including gtfq-mdm-gyubhwz medicines, vitamins, supplements, and herbs. Bring this [...] your cell phone. The hotline of the [place] [employer] Poison Control Centers is . [...] a substance, such asa prescription medicine, an zdrn-coc-mjblqln medicine, a vitamin, a supplement, or an [...] 07/26/2005 Document Revised: 04/24/2018 Document Reviewed: 04/13/2018 [employer] Patient Education [place]. Follow Up Care 02/17/2022 16:00:07 With:Tomas GARCIA Address: [address] [place] [address] Business (1) When:02/20/2022 Comments:Follow-up with your primary care doctor next 2 to 3 days for further evaluation management. [facility]09-25-2022 Evaluation + Plan noteExtracted from: Title:ED [...] Appointments Appointment Date:03/04/2022 11:20:00 AM Scheduled Provider:Tomas GARCIA DO Location:[facility] Appointment Type: Open Future Scheduled Tests Laboratory* TIBC Calculated 08/06/21 * Sodium Level 12/20/21 * Basic Metabolic Panel 03/27/21 * Ferritin 08/06/21 * Folate Level 08/06/21 * Hemoglobin 12/20/21 * Iron Level 08/06/21 * Lipase Level 08/06/21 * Vitamin B12 Level 08/06/21 Radiology* XR Foot 3+ Views Right 07/25/21 [facility]09-23-2022 Hospital Discharge instructions Patient Education 02/15/2022 [...] care provider. Avoid caffeine, alcohol, and certain xrtg-zwp-tepzfpt cold medicines. These may make you feel worse. Ask your pharmacist which medicines to avoid. General instructions Take cucc-kcq-ooqaltg and prescription medicines only as told by [...] Depression Association of [place] (ADAA): www.adaa.org National [place] on Mental Illness (MARY): www.mary.org Contact a [...] 05/06/2017 Document Revised: 10/12/2019 Document Reviewed: 10/12/2019 [email or web address] Patient Education 2020 [employer] Follow Up Care 02/15/2022 15:00:41 With:Tomas GARCIA Address: [address] [address]- Business (1) When:02/18/2022 15:37:53 [facility]09-23-2022 Evaluation + Plan noteExtracted from: Title:ED Note Author:Vic BYRD, Malick Bray te:02/15/22 Anxiety (F41.9: Anxiety diso rder, unspecified) Orders: diazepam, 10 mg = 2 tab(s), Tab, Oral, Once, Stop date 02/15/22 15:06:00 EDT, STAT, Start date 02/15/22 15:06:00 EDT, 02/15/22 15:06:00 EDT Future Appointments Appointment Date:03/04/2022 11:20:00 AM Scheduled Provider:Tomas GARCIA DO Location:[facility] Appointment Type: Open Future Scheduled Tests Laboratory* TIBC Calculated 08/06/21 * Sodium Level 12/20/21 * Basic Metabolic Panel 03/27/21 * Ferritin 08/06/21 * Folate Level 08/06/21 * Hemoglobin 12/20/21 * Iron Level 08/06/21 * Lipase Level 08/06/21 * Vitamin B12 Level 08/06/21 Radiology* XR Foot 3+ Views Right 07/25/21 [facility]09-21-2022 Hospital Discharge instructions Patient Education 02/13/2022 [...] at pharmacies and retail stores. Eat bland, xekk-jn-evwalr foods in small amounts as you are [...] and water are not available, use hand short order cook. Make sure that everyone in your household washes their hands frequently. Take vmfo-lfq-syocmuy and prescription medicines only as told by [...] and water are not available, use hand short order cook. Make sure that everyone in your household [...] 06/07/2016 Document Revised: 10/29/2019 Document Reviewed: 10/20/2018 [employer] Patient Education 2020 [employer]id. 02/13/2022 12:34:18 Dysuria Dysuria Dysuria is pain [...] alcohol may irritate the prostate. Medicines Take pvwx-axe-majntjk and prescription medicines only as told by [...] 02/07/2005 Document Revised: 04/24/2018 Document Reviewed: 02/26/2018 [employer] Patient Education [place]. Follow Up Care 02/13/2022 11:41:36 With:Tomas GARCIA Address: [address] [place], [place] [id number]- [facility] (1) When:02/16/2022 12:33:36 Comments:Call the office of [...] weakness, or any new or worsening symptoms. [facility]09-21-2022 Evaluation + Plan noteExtracted from: Title:ED Note Author:Johny Willson DO Date: Dysuria (R30.0: Dysuria) Orders: ondansetron, 4 mg = 1 tab(s), Tab-Dis, Oral, Once, Stop date 02/13/22 11:46:00 EDT, STAT, Start date 02/13/22 11:46:00 EDT, 02/13/22 11:46:00 EDT phenazopyridine, 200 mg = 1 tab(s), Oral, TID, X 3 day(s), # 9 tab(s), Refills(s) 0, Pharmacy: [facility]/pharmacy #[id number], 154.9, cm, 02/13/22 11:50:00 EDT, Height/Length Dosing, 57.6, kg, 02/13/22 11:50:00 EDT, Weight Dosing UA With Cult Reflex Future Appointments Appointment Date:02/14/2022 02:40:00 PM Scheduled Provider:Tomas GARCIA DO Location:[facility] Appointment Type: Open Future Scheduled Tests Laboratory* TIBC Calculated 08/06/21 * Sodium Level 12/20/21 * Basic Metabolic Panel 03/27/21 * Ferritin 08/06/21 * Folate Level 08/06/21 * Hemoglobin 12/20/21 * Iron Level 08/06/21 * Lipase Level 08/06/21 * Vitamin B12 Level 08/06/21 Radiology* XR Foot 3+ Views Right 07/25/21 [facility]09-20-2022 Miscellaneous Notes* Telephone Encounter - Adriane Fischer LPN - 02/12/2022 11:40 AM EDT Rep from [address] [place] [address] stated that she will reach out to the patient and get her sent catheters at this time. No further action is required at this time. * Telephone Encounter - Anabelle Vasquez RN - 02/11/2022 4:53 PM EDT Spoke to patient. She will contact [address] [place] [address], has bright green flyer with the number on it to call if she hasn't been contacted. We reached out to rep from [address] [place] [address]. Told patient she can come into office for more catheters. Her son is not able to come in for her toget them. Will touch base with patient tomorrow. Anabelle Vasquez R.N. * Telephone Encounter - Sergio Guevara RN - 02/11/2022 4:28 PM EDT Patient calling States she needs more Self Catheters Gets them from [phone] (?) States she used all of the Self Cath Catheters that she received from nurse office training Not sure how to get more Self Catheters, etc? Requesting call back maral please Call patient CELL [phone] Leave Detailed messages documented in this encounterSalem Regional Medical Center09-15-2022 NoteHNO ID: [id number] Author: Viridiana León Service: ? Author Type: ? Type: Procedures Filed: 02/07/2022 2:11 PM Note Text: CYSTOSCOPY Indications: Seen by Frantz Urinary Retention/incomplete bladder have been followed by Dr. Mancera in past last seen 5-- urinary retention Choi catheters, placed in the ED and removed [...] direction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 arise please report back to emergency department for evaluation. [facility] Evaluation + Plan note Diagnostic Tests Pending * Urine Culture 11/16/21 Future Scheduled Tests Laboratory* TIBC Calculated 08/06/21 * Basic Metabolic Panel 03/27/21 * Ferritin 08/06/21 * Folate Level 08/06/21 * Iron Level 08/06/21 * Lipase Level 08/06/21 * Vitamin B12 Level 08/06/21 Radiology* XR Foot 3+ Views Right 07/25/21 [facility] Hospital Discharge instructions Patient Education 11/08/2021 19:21:18 Near-Syncope, Umjc-wi-Jjpd Near-Syncope Near-syncope is when you suddenly get [...] Follow these instructions at home: Medicines Take jgkr-nxz-ipyracd and prescription medicines only as told by [...] 10/28/2008 Document Revised: 09/03/2019 Document Reviewed: 03/31/2019 [employer] Patient Education 2020 [employer] Follow Up Care 11/08/2021 17:11:22 With:Tomas GARCIA Address: [address] [place] [address]- Business (1) When:Within 3 Day(s) [facility] Evaluation + Plan noteExtracted from: Title:ED Note Author:Ana Layton PA-C e:11/08/21 1. Pre-syncope (R55: Syncope and collapse) [...] Radiology* XR Foot 3+ Views Right 07/25/21 [facility] Hospital Discharge instructions Patient Education 11/06/2021 [...] alcohol may irritate the prostate. Medicines Take xhpr-xjw-hazfnmt and prescription medicines only as told by [...] 02/07/2005 Document Revised: 04/24/2018 Document Reviewed: 02/26/2018 [employer] Patient Education 2020 [employer]. Follow Up Care 11/06/2021 18:04:53 With:Tomas GARCIA DO [facility] Address: [address] [place] [address]- When:11/09/2021 [facility] History of Present illness Narrative* Alison Ferreira MD - 10/30/2021 11:37 AM EDT Behavioral health outpatient progress note [facility] [phone] [facility] 10/30/2021 Alison Ferreira MD Provider Location: [facility] Patient: Maegan Dye Date of : 1950 (71 y.o. female) PCP: Tomas Garcia DO Reason for visit: Psychotropic management follow-up [...] abnormal involuntary movements noted documented in this [id number] Evaluation + Plan noteExtracted from: Title:ED Note [...] Appointments Appointment Date:11/08/2021 11:40:00 AM Scheduled Provider:Tomas GARCIA DO Location:[facility] Appointment Type: Open Future Scheduled Tests Laboratory* TIBC Calculated 08/06/21 * Basic Metabolic Panel 03/27/21 * Ferritin 08/06/21 * Folate Level 08/06/21 * Iron Level 08/06/21 * Lipase Level 08/06/21 * Vitamin B12 Level 08/06/21 Radiology* XR Foot 3+ Views Right 07/25/21 [facility] Hospital Discharge instructions Patient Education 10/27/2021 [...] Treatment for this condition includes: Antibiotic medicine. Hgxg-gwh-dxwnkwk medicines to treat discomfort. Drinking enough water [...] Follow these instructions at home: Medicines Take yeio-ncj-mzbwvfs and prescription medicines only as told by [...] 02/19/2006 Document Revised: 04/29/2019 Document Reviewed: 11/19/2018 [employer] Patient Education 2020 [employer]id. 10/27/2021 11:22:48 Hyponatremia Hyponatremia Hyponatremia is when [...] ?Adrenal gland problems. ?Metabolic conditions, such as [place] disease or syndrome of inappropriate antidiuretic hormone [...] improvement. Follow these instructions at home: Take vjil-ayu-yvwkcnl and prescription medicines only as told by [...] 05/02/2003 Document Revised: 03/26/2019 Document Reviewed: 03/26/2019 [employer] Patient Education 2020 [employer]Bid. 10/27/2021 11:22:48 Nausea and Vomiting, Adult Nausea [...] water added (diluted fruit juice). Eat bland, fuds-hl-fgxaht foods in small amounts as you are able. These foods include bananas, applesauce, rice, lean meats, toast, and crackers. Avoid fluids that contain a lot of sugar or caffeine, such as energy drinks, sports drinks, and soda. Avoid alcohol. Avoid spicy or fatty foods. General instructions Take egzu-zxc-fzrddgp and prescription medicines only as told by your health care provider. Drink enough fluid to keep your urine pale yellow. Wash your hands often using soap and water. If soap and water are not available, use hand short order cook. Make sure that all people in your [...] eating and drinking to prevent dehydration. Take bxgt-tpp-gccidvy and prescription medicines only as told by [...] 05/12/2006 Document Revised: 09/03/2019 Document Reviewed: 10/20/2018 [employer] Patient Education 2019 [employer]Bid. Follow Up Care 10/27/2021 09:47:43 With:Tomas GARCIA Address: [address] [place], [place] [phone] Business (1) When:10/30/2021 11:22:01 Comments:Call the office [...] weakness, or any new or worsening symptoms. [facility] Hospital Discharge instructions Patient Education 10/23/2021 22:11:06 Nonspecific Chest Pain, Adult, Varz-ce-Ahlj Nonspecific Chest Pain Chest pain can be [...] Follow these instructions at home: Medicines Take tmxb-wua-qscogvb and prescription medicines only as told by [...] ?Eating a heart-healthy diet. A diet and weatherization specialist (dietitian) can help you to learn [...] 10/28/2008 Document Revised: 11/12/2018 Document Reviewed: 11/12/2018 [employer] Patient Education 2020 [employer] 10/23/2021 22:11:06 Pain Without a Known [...] home: Managing pain, stiffness, and swelling Take rslf-sqj-gqwlsiw and prescription medicines only as told by [...] as fried and sweet foods. ?Take an qoyz-lpk-pvajzhp or prescription medicine for constipation. Contact a [...] 02/04/2002 Document Revised: 07/08/2019 Document Reviewed: 06/01/2018 [employer] Patient Education 2020 [employer]Bid. 10/23/2021 22:11:06 Urinary Tract Infection, Adult, Tqnn-fl-Javb Urinary Tract Infection, Adult A urinary tract [...] Follow these instructions at home: Medicines Take wzfr-qdw-mkyomno and prescription medicines only as told by [...] 10/28/2008 Document Revised: 04/29/2019 Document Reviewed: 11/19/2018 [employer] Patient Education 2020 [employer]. Follow Up Care 10/23/2021 19:05:02 With:Tomas GARCIA Address: [address] [place] [address]- [employer]) When:10/26/2021 21:11:07 Comments:Follow-up with your primary care provider. If symptoms worsen, do not improve, new symptoms arise please report back to emergency room for further evaluation. [facility] Evaluation + Plan noteExtracted from: Title:ED Note Author:Julio C Taylor DOchris Staton Date :10/23/21 Dehydration (E86.0: Dehydrat ion) Orders: [...] Radiology* XR Foot 3+ Views Right 07/25/21 [facility] Evaluation + Plan noteExtracted from: Title:ED [...] Radiology* XR Foot 3+ Views Right 07/25/21 [facility] Hospital Discharge instructions Patient Education 10/23/2021 02:20:54 Dehydration, Adult, Ejyn-hc-Ropj Dehydration, Adult Dehydration is when there is [...] a lot of fat or sugar. Take brxo-eyo-rknclbx and prescription medicines only as told by [...] 03/08/2010 Document Revised: 04/24/2018 Document Reviewed: 07/05/2016 [employer] Patient Education 2020 [employer] Follow Up Care 10/22/2021 23:25:59 With:Tomas GARCIA Address: [address] [place], [place] [phone] Business (1) When:10/26/2021 Comments:Please continue to drink plenty of fluids, follow-up with your primary care doctor next 2 to 3 daysfor further evaluation management. Please return to the ED for any new or worsening symptoms. [facility]29[facility]22 Miscellaneous Notes* Telephone Encounter - Anju [...] TRACT INFECTION ON ANTIBIOTIC FOLLOW-UP CALL - [id number] documented in this [facility] Evaluation + Plan note Extracted from: Title:ED Note Author:Chandan Adhikari DO Date:09/24 01/14 UTI (urinary tract infection ) (N39.0: Urinary tract infection, site not specified) Orders: nitrofurantoin, 100 mg = 1 cap(s), Oral, BID, X 7 day(s), # 14 cap(s), Refills(s) 0, [id number] 165, cm, 10/20/21 7:35:00 EDT, Height/Length Dosing, 63, kg, 10/20/21 7:35:00 EDT, Weight Dosing phenazopyridine, 200 mg = 1 tab(s), Oral, TID, Take one tab by mouth three times a day for three days, # 9 tab(s), Refills(s) 0, [id number], 165, cm, 10/20/21 7:35:00 EDT, Height/Length [...] Radiology* XR Foot 3+ Views Right 07/25/21 [facility] Hospital Discharge instructions Patient Education 10/20/2021 [...] Treatment for this condition includes: Antibiotic medicine. Qhfy-zas-plkeesf medicines to treat discomfort. Drinking enough water [...] Follow these instructions at home: Medicines Take gsoh-fyx-omvnzcv and prescription medicines only as told by [...] 02/19/2006 Document Revised: 04/29/2019 Document Reviewed: 11/19/2018 [employer] Patient Education 2020 [employer] Follow Up Care 10/20/2021 07:19:50 With:Your Urologist Address:Unknown When:10/23/2021 08:09:49 With:Tomas GARCIA Address: [address] [place] [address]- Business (1) When:Within 3 Day(s) [facility]22 Hospital Discharge instructions Patient Education 10/14/2021 11:46:23 Acute Urinary Retention, Female, Qjuf-gx-Qzqf Acute Urinary Retention, Female Acute urinary retention means that you cannot pee (urinate) at all, or that you pee too little and your bladder is not emptied completely. If it is not treated, it can lead to kidney damage or other serious problems. Follow these instructions at home: Take gkjr-jxv-omiohug and prescription medicines only as told by [...] 10/28/2008 Document Revised: 04/24/2018 Document Reviewed: 06/13/2017 [employer] Patient Education 2020 [employer]Bid. Follow Up Care 10/14/2021 10:24:31 With:Tomas GARCIA Address: [address] [place], [place] [phone] [facility] (1) When:10/17/2021 11:31:26 Comments:Follow-up with your primary care provider in 3 days. If symptoms worsen, do not improve, or new symptoms arise please report back to emergency department immediately. [facility] Hospital Discharge instructions Patient Education 10/12/2021 [...] 11/25/2011 Document Revised: 05/05/2019 Document Reviewed: 05/05/2019 [employer] Patient Education 2020 [employer]Bid. Follow Up Care 10/12/2021 20:40:40 With:Tomas GRIMM MD, URL Address: [address] [place] [address]- When:2 to 4 days With:Tomas GARCIA DO, [facility] Address: [address] [facility] [address] [place] [address]- When:10/15/2021 [facility]16[facility]22 Evaluation + Plan note Diagnostic Tests Pending * Urine Culture 10/08/21 Future Scheduled Tests Laboratory* TIBC Calculated 08/06/21 * Basic Metabolic Panel 03/27/21 * Ferritin 08/06/21 * Folate Level 08/06/21 * Iron Level 08/06/21 * Lipase Level 08/06/21 * Vitamin B12 Level 08/06/21 Radiology* XR Foot 3+ Views Right 07/25/21 [facility] Hospital Discharge instructions Patient Education 10/04/2021 [...] on each side. Do this in a xycgr-gi-iaqh direction. ?If you are male: ?Use one [...] Clean the drainage bag according to the power generation plant operator's instructions or as told byyour health care [...] and water are not available, use hand short order cook. Always make sure there are no twists [...] 05/12/2006 Document Revised: 09/03/2019 Document Reviewed: 12/26/2017 [employer] Patient Education 2020 [employer]Bid. 10/04/2021 00:51:33 Acute Urinary Retention, Female, Niji-dc-Zkin Acute Urinary Retention, Female Acute urinary retention means that you cannot pee (urinate) at all, or that you pee too little and your bladder is not emptied completely. If it is not treated, it can lead to kidney damage or other serious problems. Follow these instructions at home: Take lysy-idd-tewwula and prescription medicines only as told by [...] 10/28/2008 Document Revised: 04/24/2018 Document Reviewed: 06/13/2017 [employer] Patient Education 2020 [employer]Bid. Follow Up Care 10/03/2021 21:50:18 With:Tomas GARCIA Address: [address] [place], [place] [phone]- Business (1) When:10/06/2021 Comments:Please follow-up with your urologist for further evaluation and management. [facility] Evaluation + Plan noteExtracted from: Title:ED [...] Radiology* XR Foot 3+ Views Right 07/25/21 [facility] Hospital Discharge instructions Patient Education 10/01/2021 [...] 11/25/2011 Document Revised: 05/05/2019 Document Reviewed: 05/05/2019 [employer] Patient Education 2020 [employer]Bid. Follow Up Care 10/01/2021 18:06:52 With:GISELA RAMOS, Tomas Chakraborty, URL Address: [address] [address]- When:2 to 4 days [facility]-09[facility]2022 Hospital Discharge instructions Patient Education 09/30/2021 22:10:24 Acute Urinary Retention, Female, Oeqt-kc-Nlpm Acute Urinary Retention, Female Acute urinary retention means that you cannot pee (urinate) at all, or that you pee too little and your bladder is not emptied completely. If it is not treated, it can lead to kidney damage or other serious problems. Follow these instructions at home: Take nyde-bqj-rvgbfka and prescription medicines only as told by [...] 10/28/2008 Document Revised: 04/24/2018 Document Reviewed: 06/13/2017 [email or web address] Patient Education 2020 [employer] Follow Up Care 09/30/2021 21:04:21 With:GISELA RAMOS, Tomas Chakraborty, URL Address: [address] [address]- When:2 to 4 days Comments:Keep scheduled appointment [facility]05-04-2022 Evaluation + Plan note Diagnostic Tests Pending * Urine Culture 09/26/21 Future Scheduled Tests Laboratory* TIBC Calculated 08/06/21 * Basic Metabolic Panel 03/27/21 * Ferritin 08/06/21 * Folate Level 08/06/21 * Iron Level 08/06/21 * Lipase Level 08/06/21 * Vitamin B12 Level 08/06/21 Radiology* XR Foot 3+ Views Right 07/25/21 [facility] Evaluation + Plan note Diagnostic Tests Pending * Urine Culture 09/17/21 Future Scheduled Tests Laboratory* TIBC Calculated 08/06/21 * Basic Metabolic Panel 03/27/21 * Ferritin 08/06/21 * Folate Level 08/06/21 * Iron Level 08/06/21 * Lipase Level 08/06/21 * Vitamin B12 Level 08/06/21 Radiology* XR Foot 3+ Views Right 07/25/21 [facility] Hospital Discharge instructions Patient Education 09/17/2021 11:46:36 Acute Urinary Retention, Female, Vlsa-cs-Ozze Acute Urinary Retention, Female Acute urinary retention means that you cannot pee (urinate) at all, or that you pee too little and your bladder is not emptied completely. If it is not treated, it can lead to kidney damage or other serious problems. Follow these instructions at home: Take jltn-gmb-ljuvnbo and prescription medicines only as told by [...] 10/28/2008 Document Revised: 04/24/2018 Document Reviewed: 06/13/2017 [employer] Patient Education 2020 FedBid. Follow Up Care 09/17/2021 09:28:28 With:Rukhsana Mcarthur Address: [address] [place], [place] [address] [phone] Business (1) When:09/20/2021 10:18:24 [facility] Hospital Discharge instructions Patient Education 09/13/2021 11:28:01 Urinary Tract Infection, Adult, Tkwq-tt-Cikv Urinary Tract Infection, Adult A urinary tract [...] Follow these instructions at home: Medicines Take neml-tuh-fmvsxwi and prescription medicines only as told by [...] 10/28/2008 Document Revised: 04/29/2019 Document Reviewed: 11/19/2018 [employer] Patient Education 2020 [employer]Bid. 09/13/2021 11:27:34 Antibiotic Medicine, Adult Antibiotic Medicine, [...] 01/22/2005 Document Revised: 11/10/2018 Document Reviewed: 05/13/2017 [employer] Patient Education 2020 [employer]Bid. 09/13/2021 11:27:33 Urodynamic Testing Urodynamic Testing What [...] including vitamins, herbs, eye drops, creams, and vpci-ajs-wqersfv medicines. ?Whether you are or may be [...] 03/08/2008 Document Revised: 08/31/2019 Document Reviewed: 03/16/2018 [email or web address] Patient Education 2019 FedBid. [facility] [place] 04-21-2022 Miscellaneous Notes* Telephone Encounter - Irma [...] 6. : Post menopausal Protocols used: URINARY [id number] documented in this encounterSal[facility]04-16-[facility]22 Evaluation + Plan note Extracted from: Title:ED [...] Radiology* XR Foot 3+ Views Right 07/25/21 [facility] Evaluation + Plan noteExtracted from: Title:ED Note Author:Malick Ho PA-C te:09/08/21 Dysuria (R30.0: Dysuria) Orders: lorazepam, 1 mg = 1 tab(s), Tab, Oral, Once, Stop date 09/08/21 8:40:00 EDT, STAT, Start date 09/08/21 8:40:00 EDT, 09/08/21 8:40:00 EDT phenazopyridine, 200 mg = 1 tab(s), Oral, TID, X 2 day(s), # 6 tab(s), Refills(s) 0, Pharmacy: [facility]/pharmacy #[id number], 158, cm, 09/08/21 8:41:00 EDT, Height/Length Dosing, 63, kg, 09/08/21 8:41:00 EDT, Weight Dosing Future Scheduled Tests Laboratory* TIBC Calculated 08/06/21 * Basic Metabolic Panel 03/27/21 * Ferritin 08/06/21 * Folate Level 08/06/21 * Iron Level 08/06/21 * Lipase Level 08/06/21 * Vitamin B12 Level 08/06/21 Radiology* XR Foot 3+ Views Right 07/25/21 [facility] Hospital Discharge instructions Patient Education 09/08/2021 [...] alcohol may irritate the prostate. Medicines Take wpxx-feg-shrpjnp and prescription medicines only as told by [...] 02/07/2005 Document Revised: 04/24/2018 Document Reviewed: 02/26/2018 [employer] Patient Education 2020 FedBid. Follow Up Care 09/08/2021 08:35:50 With:Tomas GARCIA Address: [address] [place] [address]- Business (1) When:09/11/2021 09:30:02 [facility]16[facility] Hospital Discharge instructions Patient Education 09/08/2021 [...] complications. Follow these instructions at home: Take kclv-sgb-hmpumer and prescription medicines only as told by [...] 05/11/2007 Document Revised: 04/24/2018 Document Reviewed: 06/13/2017 [employer]ribe Patient Education 2020 [employer]Bid. Follow Up Care 09/08/2021 04:59:06 With:Rukhsana Mcarthur Address: [address] [phone] Business (1) When:09/11/2021 05:26:10 With:Tomas GARCIA Address: [address] [place] [address]- Business (1) When:Within 3 Day(s) [facility] Hospital Discharge instructions Patient Education 09/07/2021 [...] heart problems, neurological conditions, and infections. Certain ygnx-zku-bupycir and prescription medicines. Illegal drugs that increase [...] drug. Follow these instructions at home: Take edrx-ftc-hsogbdg and prescription medicines only as told by [...] 05/12/2006 Document Revised: 04/24/2018 Document Reviewed: 06/20/2017 [employer]ribe Patient Education 2020 [employer]Bid. Follow Up Care 09/07/2021 21:20:10 With:Tomas GARCIA Address: [address] [place], [place] [phone]- Business (1) When:Within 3 Day(s) [facility]-15-[facility]22 Evaluation + Plan noteExtracted from: Title:ED Note Author:Carlos Coates MD Date: 1. Diarrhea (R19.7: Diarrhea , unspecified) UTI (urinary tract infection) (N39.0: Urinary tract infection, site not specified) Orders: ciprofloxacin, 500 mg = 1 tab(s), Oral, BID, # 14 tab(s), Refills(s) 0, Pharmacy: [facility]/pharmacy #[id number], 157, cm, 09/07/21 5:48:00 EDT, Height/Length Dosing, 63.8, kg, 09/07/21 5:48:00 EDT, Weight Dosing Diagnostic Tests Pending * Urine Culture 09/07/21 Future Scheduled Tests Laboratory* TIBC Calculated 08/06/21 * Basic Metabolic Panel 03/27/21 * Ferritin 08/06/21 * Folate Level 08/06/21 * Iron Level 08/06/21 * Lipase Level 08/06/21 * Vitamin B12 Level 08/06/21 Radiology* XR Foot 3+ Views Right 07/25/21 [facility] Evaluation + Plan noteExtracted from: Title:ED [...] Radiology* XR Foot 3+ Views Right 07/25/21 [facility] Hospital Discharge instructions Follow Up Care 09/07/2021 05:35:03 With:Tomas GARCIA Address: [address] [place] [address]- Business (1) When:Within 3 Day(s) [facility]-14-2022 Evaluation + Plan note Diagnostic Tests Pending * Urine Culture 09/06/21 Future Scheduled Tests Laboratory* TIBC Calculated 08/06/21 * Basic Metabolic Panel 03/27/21 * Ferritin 08/06/21 * Folate Level 08/06/21 * Iron Level 08/06/21 * Lipase Level 08/06/21 * Vitamin B12 Level 08/06/21 Radiology* XR Foot 3+ Views Right 07/25/21 [facility] Hospital Discharge instructions Follow Up Care 08/28/2021 12:07:22 With:Tomas GARCIA DO, FAM Address: [address] [place] [address]- When: only if needed With:Tomas GARCIA DO, FAM Address: [address] [place], [place] [phone]- When: only if needed [facility] [place] 04-04-2022 History of Present illness Narrative* Alison Ferreira MD - 08/27/2021 8:58 AM EDT Telephone Visit Via Phone Call [facility] [address] (11) [facility] [address] [facility] [id number] Telephone Visit [facility] 07/17/2021 Alison Ferreira MD Provider Location: [place] [facility] Patient Location [facility] Hand: None Patient Location: Patient's Home Patient: Maegan Dye Date of : 1950 (71 y.o. female) PCP: Tomas Garcia DO I discussed risks, benefits and alternatives [...] there are inherent diagnostic limitations compared to bjdx-ix-bjex evaluations. We elected toproceed with the telephone [...] and Plan of Care. documented in this [id number] Evaluation + Plan note Future Scheduled Tests Laboratory* TIBC Calculated 08/06/21 * Basic Metabolic Panel 03/27/21 * Ferritin 08/06/21 * Folate Level 08/06/21 * Iron Level 08/06/21 * Lipase Level 08/06/21 * Vitamin B12 Level 08/06/21 Radiology* XR Foot 3+ Views Right 07/25/21 [facility] Evaluation + Plan note Future Scheduled Tests Laboratory* TIBC Calculated 08/06/21 * Basic Metabolic Panel 03/27/21 * Ferritin 08/06/21 * Folate Level 08/06/21 * Iron Level 08/06/21 * Lipase Level 08/06/21 * Vitamin B12 Level 08/06/21 Radiology* XR Foot 3+ Views Right 07/25/21 [facility] 03-14-2022 Evaluation + Plan note Future Scheduled Tests Laboratory* TIBC Calculated 08/06/21 * Sodium Level 12/20/21 * Basic Metabolic Panel 03/27/21 * Ferritin 08/06/21 * Folate Level 08/06/21 * Hemoglobin 12/20/21 * Iron Level 08/06/21 * Lipase Level 08/06/21 * Vitamin B12 Level 08/06/21 Radiology* XR Foot 3+ Views Right 07/25/21 [facility] 03-14-2022 Evaluation + Plan note Future Scheduled Tests Laboratory* TIBC Calculated 08/06/21 * Sodium Level 12/20/21 * Ferritin 08/06/21 * Folate Level 08/06/21 * Hemoglobin 12/20/21 * Iron Level 08/06/21 * Lipase Level 08/06/21 * Vitamin B12 Level 08/06/21 Radiology* XR Foot 3+ Views Right 07/25/21 [facility] 03-14-2022 Evaluation + Plan note Future Scheduled Tests Laboratory* TIBC Calculated 08/06/21 * Sodium Level 12/20/21 * Basic Metabolic Panel 04/25/22 * Ferritin 08/06/21 * Folate Level 08/06/21 * Hemoglobin 12/20/21 * Iron Level 08/06/21 * Lipase Level 08/06/21 * Vitamin B12 Level 08/06/21 Radiology* XR Foot 3+ Views Right 07/25/21 [facility] 02-21-2022 Telephone encounter Note* Telephone Encounter - Jessica Willis MA - 07/16/2021 7:39 AM EST She has an appt on 07/17. She called twice on Friday and said that the pharmacy told her to call us and get the ok for a refill. [id number] Miscellaneous Notes* Telephone Encounter - Jessica Willis MA - 07/16/2021 7:39 AM EST She has an appt on 07/17. She called twice on Friday and said that the pharmacy told her to call us and get the ok for a refill. documented in this [id number] History of Present illness Narrative* Alison Ferreira MD - 04/16/2021 11:22 AM EST Telephone Visit Via Phone Call [facility] [address] (11) [facility] [address] [facility] [phone] Telephone Visit [facility] 04/16/2021 Alison Ferreira MD Provider Location: [facility] Patient Location [facility] Hand: None Patient Location: Patient's Home Patient: Maegan Dye Date of : 1950 (71 y.o. female) PCP: Tomas Garcia, DO I discussed risks, benefits and alternatives [...] there are inherent diagnostic limitations compared to wisl-se-gxzu evaluations. We elected toproceed with the telephone [...] and Plan of Care. documented in this [id number] History of Present illness Narrative* Alison Ferreira MD - 02/25/2021 7:03 PM EDT Behavioral health outpatient progress note [facility] [phone] [facility] 12/29/2020 Alison Ferreira MD Provider Location: [facility] Patient: Maegan Dye Date of : 1950 (71 y.o. female) PCP: Tomas Garcia DO Reason for visit: Psychotropic management follow-up [...] abnormal involuntary movements noted documented in this [id number] History of Present illness Narrative* Alison Ferreira MD - 09/29/2020 10:56 AM EDT Telephone Visit Via Phone Call [facility] [phone] Telephone Visit [facility] 09/19/2020 Alison Ferreira MD Provider Location: [facility] Patient Location [facility] Hand: None Patient Location: Patient's Home Patient: Maegan Dye Date of : 1950 (70 y.o. female) PCP: Tomas Garcia, I discussed risks, benefits and alternatives of [...] there are inherent diagnostic limitations compared to pvni-qj-wpyj evaluations. We elected toproceed with the telephone [...] in this encounterOhioHealthDischarge summary Author Julian Arechiga [facility] June 11, 2022 12:35pm Note Date/Time June 11, 2022 1 0:05am [facility] [address] [place] [address] Discharge Summary Signed Patient: Maegan Dye MR#: [id number] 9 : 1950 Acct:[id number] Age/Sex: 72 / F Adm Date: 2 Loc: 1S Room: [address] [place] [address]: Merary De MD Copies to: MD Julian De León MD Gregory S Grant, DO~ Providers Date of Discharge: 06/11/22 Discharging Provider: Julian Arechiga Primary Care Provider: Tomas Garcia Consults: 05/25/22 17:25 Consult to Adult Hospitalist [...] fractures was transferred to our facility from [facility] due to difficulty caring for herself, [...] 11:30 Urine Culture - Preliminary Urine - Choi Catheter Escherichia coli Enterococcus faecalis Exam Physical Exam Vital Signs: Temp Pulse Resp BP Pulse Ox O2 Del Method 97.6 F 88 18 111/69 93 L Room Air 06/10/22 19:40 06/10/22 19:40 06/10/22 19:40 06/10/22 19:40 06/10/22 19:40 06/10/22 19:40 Discharge Plan Discharge Plan Patient Disposition: Intermediate Acute Care Activity: Ambulate as Tolerated Diet: Regular Additional Instructions: Choi catheter inserted 05/28/22. Reason:Urinary Retention Regular diet Activity as tolerated Boost Plus TID Mental health will be managed by rounding physicians at [facility]. Instructions: Depression, Adult (DC), [facility] [place] Instructions Prescriptions: New celecoxib [...] TID Rx Instructions: to rash Follow Up: [facility] Hotline [Outside] Tomas Garcia DO [Primary Care Provider] - (Please call to schedule an appointment for any medical needs) Documented By: Julian Arechiga MD 06/11/22 1005 Signed By: <Electronically signed by Julian Arechiga MD> 06/11/22 1235 [facility] Work Phone: Evaluation + Plan note Future Appointments Appointment Date:09/06/2021 11:40:00 AM Scheduled Provider:Tomas GARCIA DO Location:[facility] Appointment Type: Open Future Scheduled Tests Laboratory* TIBC Calculated 08/06/21 * Basic Metabolic Panel 03/27/21 * Ferritin 08/06/21 * Folate Level 08/06/21 * Iron Level 08/06/21 * Lipase Level 08/06/21 * Vitamin B12 Level 08/06/21 Radiology* XR Foot 3+ [facility]ments Appointment Date:09/17/2021 01:20:00 PM Scheduled Provider:Rosalie Bush NP Location:[facility] Appointment Type: ER/Hospital Follow Up Future Scheduled Tests Laboratory* TIBC Calculated 08/06/21 * Basic Metabolic Panel 03/27/21 * Ferritin 08/06/21 * Folate Level 08/06/21 * Iron Level 08/06/21 * Lipase Level 08/06/21 * Vitamin B12 Level 08/06/21 Radiology* XR Foot 3+ Views Right 07/25/21 [facility] Evaluation + Plan note Future Appointments Appointment Date:09/17/2021 01:20:00 PM Scheduled Provider:Rosalie Bush NP Location:[facility] Appointment Type: ER/Hospital Follow Up Diagnostic Tests Pending * Urine Culture 09/13/21 Future Scheduled Tests Laboratory* TIBC Calculated 08/06/21 * Basic Metabolic Panel 03/27/21 * Ferritin 08/06/21 * Folate Level 08/06/21 * Iron Level 08/06/21 * Lipase Level 08/06/21 * Vitamin B12 Level 08/06/21 Radiology* XR Foot 3+ Views Right [facility]25[facility] App[facility]ments Appointment Date:11/08/2021 11:40:00 AM Scheduled Provider:Tomas GARCIA DO Location:[facility] Appointment Type: Open Future Scheduled Tests Laboratory* TIBC Calculated 08/06/21 * Basic Metabolic Panel 03/27/21 * Ferritin 08/06/21 * Folate Level 08/06/21 * Iron Level 08/06/21 * Lipase Level 08/06/21 * Vitamin B12 Level 08/06/21 Radiology* XR Foot 3+ Views Right [facility]25[facility] App[facility]ments Appointment Date:11/07/2021 09:00:00 AM Scheduled Provider:Rosalie Bush NP Location:[facility] Appointment Type: Open Diagnostic Tests Pending * Urine Culture 11/06/21 Future Scheduled Tests Laboratory* TIBC Calculated 08/06/21 * Basic Metabolic Panel 03/27/21 * Ferritin 08/06/21 * Folate Level 08/06/21 * Iron Level 08/06/21 * Lipase Level 08/06/21 * Vitamin B12 Level 08/06/21 Radiology* XR Foot 3+ Views Right [facility]25[facility] App[facility]ments Appointment Date:11/23/2021 01:00:00 PM Scheduled Provider:Rosalie Bush NP Location:[facility] Appointment Type: Open Diagnostic Tests Pending * Urine Culture 11/21/21 Future Scheduled Tests Laboratory* TIBC Calculated 08/06/21 * Basic Metabolic Panel 03/27/21 * Ferritin 08/06/21 * Folate Level 08/06/21 * Iron Level 08/06/21 * Lipase Level 08/06/21 * Vitamin B12 Level 08/06/21 Radiology* XR Foot 3+ Views Right [facility]/25/21 [facility] Appointments Appointment Date:12/26/2021 10:45:00 AM Scheduled Provider:Rosa LOPES MD Location[facility] Appointment Type:BADH Follow Up Appointment Date:12/27/2021 01:20:00 PM Scheduled Provider:JHONATAN APPIAH CNP Location:[facility] Appointment Type: Hospital Follow Up w/TCM Future Scheduled Tests Laboratory* TIBC Calculated 08/06/21 * Sodium Level 12/20/21 * Basic Metabolic Panel 03/27/21 * Ferritin 08/06/21 * Folate Level 08/06/21 * Hemoglobin 12/20/21 * Iron Level 08/06/21 * Lipase Level 08/06/21 * Vitamin B12 Level 08/06/21 Radiology* XR Foot 3+ Views Right [facility]/25/21 [facility] App[facility]ments Appointment Date:12/27/2021 01:20:00 PM Scheduled Provider:JHONATAN APPIAH CNP Location:[facility] Appointment Type: Hospital Follow Up w/TCM Future Scheduled Tests Laboratory* TIBC Calculated 08/06/21 * Sodium Level 12/20/21 * Basic Metabolic Panel 03/27/21 * Ferritin 08/06/21 * Folate Level 08/06/21 * Hemoglobin 12/20/21 * Iron Level 08/06/21 * Lipase Level 08/06/21 * Vitamin B12 Level 08/06/21 Radiology* XR Foot 3+ Views Right 07/25/21 [facility] Evaluation + Plan note Future Appointments Appointment Date:01/29/2022 11:40:00 AM Scheduled Provider:Tomas GARCIA DO Location:[facility] Appointment Type: Open Diagnostic Tests Pending * Urine Culture 01/14/22 Future Scheduled Tests Laboratory* TIBC Calculated 08/06/21 * Sodium Level 12/20/21 * Basic Metabolic Panel 03/27/21 * Ferritin 08/06/21 * Folate Level 08/06/21 * Hemoglobin 12/20/21 * Iron Level 08/06/21 * Lipase Level 08/06/21 * Vitamin B12 Level 08/06/21 Radiology* XR Foot 3+ Views Right 07/25/21 [facility] Appointments Appointment Date:01/29/2022 11:40:00 AM Scheduled Provider:Tomas GARCIA DO Location:[facility] Appointment Type: Open Diagnostic Tests Pending * Urine Culture 01/15/22 Future Scheduled Tests Laboratory* TIBC Calculated 08/06/21 * Sodium Level 12/20/21 * Basic Metabolic Panel 03/27/21 * Ferritin 08/06/21 * Folate Level 08/06/21 * Hemoglobin 12/20/21 * Iron Level 08/06/21 * Lipase Level 08/06/21 * Vitamin B12 Level 08/06/21 Radiology* XR Foot 3+ Views Right 07/25/21 [facility] Appointments Appointment Date:01/29/2022 11:40:00 AM Scheduled Provider:Tomas GARCIA DO Location:[facility] Appointment Type: Open Future Scheduled Tests Laboratory* TIBC Calculated 08/06/21 * Sodium Level 12/20/21 * Basic Metabolic Panel 03/27/21 * Ferritin 08/06/21 * Folate Level 08/06/21 * Hemoglobin 12/20/21 * Iron Level 08/06/21 * Lipase Level 08/06/21 * Vitamin B12 Level 08/06/21 Radiology* XR Foot 3+ Views Right 07/25/21 [facility] Evaluation + Plan note Future Appointments Appointment Date:04/29/2022 11:40:00 AM Scheduled Provider:Tomas GARCIA DO Location:[facility] Appointment Type: Open Appointment Date:05/28/2022 01:00:00 PM Scheduled Provider:Tomas GARCIA DO Location:[facility] Appointment Type: Open Future Scheduled Tests Laboratory* TIBC Calculated 08/06/21 * Sodium Level 12/20/21 * Basic Metabolic Panel 04/25/22 * Ferritin 08/06/21 * Folate Level 08/06/21 * Hemoglobin 12/20/21 * Iron Level 08/06/21 * Lipase Level 08/06/21 * Vitamin B12 Level 08/06/21 Radiology* XR Foot 3+ Views Right 07/25/21 [facility] Evaluation + Plan note Future Appointments Appointment Date:04/29/2022 11:40:00 AM Scheduled Provider:Tomas GARCIA DO Location:[facility] Appointment Type: Open Appointment Date:05/28/2022 01:00:00 PM Scheduled Provider:Tomas GARCIA DO Location:[facility] Appointment Type: Open Diagnostic Tests Pending * Urine Culture 04/25/22 Future Scheduled Tests Laboratory* TIBC Calculated 08/06/21 * Sodium Level 12/20/21 * Basic Metabolic Panel 04/25/22 * Ferritin 08/06/21 * Folate Level 08/06/21 * Hemoglobin 12/20/21 * Iron Level 08/06/21 * Lipase Level 08/06/21 * Vitamin B12 Level 08/06/21 Radiology* XR Foot 3+ Views Right 07/25/21 [facility] Appointments Appointment Date:05/28/2022 01:00:00 PM Scheduled Provider:Tomas GARCIA DO Location:[facility] Appointment Type: Open Future Scheduled Tests Laboratory* TIBC Calculated 08/06/21 * Sodium Level 12/20/21 * Basic Metabolic Panel 04/25/22 * Ferritin 08/06/21 * Folate Level 08/06/21 * Hemoglobin 12/20/21 * Iron Level 08/06/21 * Lipase Level 08/06/21 * Vitamin B12 Level 08/06/21 Radiology* XR Foot 3+ Views Right 07/25/21 [facility] Future Appointments Appointment Date:08/28/2023 02:30:00 PM Scheduled Provider: [facility] () [facility] noteExtracted from: Title:ED Note Author:Fredy BYRD, Jose Bray te:05/04/24 UTI (urinary tract infection ) (N39.0: Urinary tract infection, site not specified) Orders: cephalexin, 500 mg = 1 cap(s), Oral, q12hr, X 5 day(s), # 10 cap(s), Refills(s) 0, Pharmacy: [facility]/pharmacy #[id number], 154, cm, 05/03/24 20:53:00 EST, Height/Length Dosing, 63.8, kg, 05/03/24 20:53:00 EST, Weight Dosing cephalexin, 500 mg = 1 cap(s), Cap, Oral, Once, Stop date 05/03/24 22:18:00 EST, STAT, Start date 05/03/24 22:18:00 EST, 05/03/24 22:18:00 EST Continuous Pulse Oximetry Drug Screen Urine ED Cardiac Monitoring UA with Cult Rflx Urine Culture XR Chest Single View Diagnostic Tests Pending * Urine Culture 05/03/24 [facility] + Plan note Future Appointments Appointment Date:08/09/2024 01:30:00 PM Scheduled Provider:Elidia Chavez MD Location:[facility] Appointment Type:[facility] note* Diagnosis Panic Disorder with Agoraphobia Agoraphobia with panic disorder [facility] [...] with panic [facility] Diagnosis Panic disorder with agoraphobia Agoraphobia with panic disorder [facility] Diagnosis Panic disorder with agoraphobia Agoraphobia with panic disorder [facility]* Diagnosis Post traumatic stress disorder (PTSD)- Primary Bipolar 1 disorder, manic, mild (HCC) Panic disorder with 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 [facility] Work Phone: evaluation note* Diagnosis Screening for genitourinary condition Screening for other and unspecified genitourinary condition [facility] Bipolar 1 disorder, manic, mild (HCC)- Primary Post traumatic stress disorder (PTSD) Panic disorder with 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 [facility]* Diagnosis Urinary tract infection without hematuria, site unspecified- Primary Retention of urine Retention of urine, unspecified Pelvic floor dysfunction Pelvic muscle wasting [facility] Diagnosis Panic disorder with agoraphobia Agoraphobia with panic disorder [facility]* Diagnosis Urinary retention- Primary Retention of urine, unspecified Urinary tract infection without hematuria, site unspecified Chronic constipation Unspecified constipation [facility] Diagnosis Urinary tract infection without hematuria, site unspecified- Primary Feeling of incomplete bladder emptying Incomplete bladder emptying Pelvic pain [facility] Diagnosis Feeling of incomplete bladder emptying- Primary Incomplete bladder emptying Recurrent UTI Urinary tract infection, site not specified [facility]* Diagnosis Onset Date Resolution Status Acute encephalopathy acute Chronic pain acute Chronic prescription opiate use acute CKD (chronic kidney disease) stage 3, GFR 30-59 ml/min acute Hyponatremia acute Major depressive disorder, recurrent, moderate acute Multiple fracture acute Open wound of right hip acut e Polypharmacy acute Sleep-wake disorder acute [facility] Work Phone: Evaluation note* Diagnosis Bipolar 1 disorder, manic, mild (HCC)- Primary Panic disorder with agoraphobia Agoraphobia with panic disorder [facility] Diagnosis Post traumatic stress disorder (PTSD)- Primary Panic disorder with agoraphobia Agoraphobia with panic disorder Bipolar 1 disorder, manic, mild (HCC) [facility] Diagnosis Urinary retention- Primary Retention of urine, unspecified Urinary tract infection without hematuria, site unspecified Pelvic floor dysfunction Pelvic muscle wasting [facility]* Diagnosis Urinary retention- Primary Retention of urine, unspecified Feeling of incomplete bladder emptying Incomplete bladder emptying Recurrent UTI Urinary tract infection, site not specified [facility]* Diagnosis Onset Date Resolution Status Major depressive disorder, recurrent, moderate acute [facility] Work Phone: Evaluation note* Diagnosis Other closed intra-articular fracture of distal end of left radius with routine healing, subsequent encounter- Primary documented in this encounter [facility]* Diagnosis Other closed intra-articular fracture of distal end of left radius with routine healing, subsequent encounter- Primary documented in this encounter [facility]* Diagnosis Other closed intra-articular fracture of distal end of left radius, initial encounter- Primary Closed displaced fracture of proximal phalanx of left middle finger, initial encounter Preoperative testing Unspecified pre-operative examination [facility] Diagnosis Other closed intra-articular fracture of distal end of left radius with routine healing, subsequent encounter- Primary [facility] N[facility] - Reported* Type Description Date Medical History low potassium Medical History arthritis Medical History chronic back pain Medical History osteoarthritis Medical History HTN Usetrace Other Hospital course Narrative No data available for this section [facility] No data available for this section [facility] Additional Instructions Take antibiotic as instructed until gone Call your doctor for follow-up appointment on Friday Continue taking medications as prescribed Return here if any problems persist or worsen You have a urine culture is [facility] Work Phone: Progress note No data available for this section [facility])* Consultation (Routine) - Authorized Specialty Diagnoses / Procedures Referred By Gallo bellamy Referred To Contact Occupational Therapy Diagnoses Other closed intra-articular fracture of distal end of left radius with routine healing, subsequent encounter Procedures OR OFFICE/OUTPATIENT NEW HIGH MDM 60 MINUTES Jose Stroud, [address] [place] [address] [facility]/SPEECH [address] [address] Referral ID Status Reason Start Date Expiration Date Visits Requested Visits Authorized [id number] Authorized Consult and Treat 02/23/2024 08/21/2024 1 1 [facility] Summary Purpose Family History No Family History Records Found Relationship Condition Age at Onset Recorded Date/T bryon Not Specified No pertinent family history Unknown Advance Directives No Advanced Directives Records FoundDocuments on File Type Date 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 female) PCP: Tomas Garcia, DO I discussed risks, benefits and alternatives [...] there are inherent diagnostic limitations compared to [id number] evaluations. We elected toproceed with the telephone visit telemedicine consultation. HPI Patient is a 70-year-old white female who is currently on Social Security income and disability. She has working diagnosis of bipolar disorder, PTSD and panic disorder with agoraphobia. She has been under my care for the last 5 years at my previous employment in [employer]. She is here tocontinue her psychiatric treatment to my care at [facility]. She is currently taking Celexa thiothixene, [...] depressive dis order, recurrent, moderate Chief Complaint bh confusion Acute UTI Medications Administered Section Inactive Administered Medications - [...] section and content) DATE CREATED AUTHOR 11/12/2017 [facility] DATE CREATED AUTHOR AUTHOR'S ORGANIZ ATION 06/29/2022 [facility] DATE CREATED AUTHOR AUTHOR'S ORGANIZ ATION 11/01/2022 [facility] DATE CREATED AUTHOR AUTHOR'S ORGANIZ ATION 02/04/2023 [facility] DATE CREATED AUTHOR AUTHOR'S ORGANIZ ATION 02/08/2023 [facility] DATE CREATED AUTHOR AUTHOR'S ORGANIZ ATION 10/31/2023 [facility] DATE CREATED AUTHOR AUTHOR'S ORGANIZ ATION 12/26/2023 [facility] DATE CREATED AUTHOR AUTHOR'S ORGANIZ ATION 01/05/2024 [facility] DATE CREATED AUTHOR AUTHOR'S ORGANIZ ATION 01/13/2024 [facility] DATE CREATED AUTHOR AUTHOR'S ORGANIZ ATION 01/19/2024 [facility] DATE CREATED AUTHOR AUTHOR'S ORGANIZ ATION 02/01/2024 [facility] DATE CREATED AUTHOR AUTHOR'S ORGANIZ ATION 02/08/2024 [facility] DATE CREATED AUTHOR AUTHOR'S ORGANIZ ATION 02/11/2024 [facility] DATE CREATED AUTHOR AUTHOR'S ORGANIZ ATION 02/24/2024 [facility] DATE CREATED AUTHOR AUTHOR'S ORGANIZ ATION 02/25/2024 [facility] DATE CREATED AUTHOR AUTHOR'S ORGANIZ ATION 02/28/2024 [facility] DATE CREATED AUTHOR AUTHOR'S ORGANIZ ATION 03/11/2024 [facility] DATE CREATED AUTHOR AUTHOR'S ORGANIZ ATION 03/13/2024 [facility] DATE CREATED AUTHOR AUTHOR'S ORGANIZ ATION 03/15/2024 [facility] DATE CREATED AUTHOR AUTHOR'S ORGANIZ ATION 03/16/2024 [facility] DATE CREATED AUTHOR AUTHOR'S ORGANIZ ATION 03/17/2024 [facility] DATE CREATED AUTHOR AUTHOR'S ORGANIZ ATION 03/19/2024 [facility] DATE CREATED AUTHOR AUTHOR'S ORGANIZ ATION 03/30/2024 [facility] DATE CREATED AUTHOR AUTHOR'S ORGANIZ ATION 04/05/2024 [facility] DATE CREATED AUTHOR AUTHOR'S ORGANIZ ATION 04/10/2024 [facility] DATE CREATED AUTHOR AUTHOR'S ORGANIZ ATION 04/11/2024 [facility] DATE CREATED AUTHOR AUTHOR'S ORGANIZ ATION 04/12/2024 [facility] DATE CREATED AUTHOR AUTHOR'S ORGANIZ ATION 04/13/2024 [facility] DATE CREATED AUTHOR AUTHOR'S ORGANIZ ATION 04/14/2024 [facility] DATE CREATED AUTHOR AUTHOR'S ORGANIZ ATION 04/20/2024 [facility] DATE CREATED AUTHOR AUTHOR'S ORGANIZ ATION 04/21/2024 [facility] DATE CREATED AUTHOR AUTHOR'S ORGANIZ ATION 04/22/2024 [facility] DATE CREATED AUTHOR AUTHOR'S ORGANIZ ATION 04/24/2024 [facility] DATE CREATED AUTHOR AUTHOR'S ORGANIZ ATION 04/25/2024 [facility] DATE CREATED AUTHOR AUTHOR'S ORGANIZ ATION 04/28/2024 [facility] DATE CREATED AUTHOR AUTHOR'S ORGANIZ ATION 05/04/2024 [facility] DATE CREATED AUTHOR AUTHOR'S ORGANIZ ATION 05/06/2024 [facility] DATE CREATED AUTHOR AUTHOR'S ORGANIZ ATION 05/07/2024 [facility] DATE CREATED AUTHOR AUTHOR'S ORGANIZ ATION 05/08/2024 [facility] DATE CREATED AUTHOR AUTHOR'S ORGANIZ ATION 05/09/2024 [facility] DATE CREATED AUTHOR AUTHOR'S ORGANIZ ATION 05/13/2024 [facility] DATE CREATED AUTHOR AUTHOR'S ORGANIZ ATION 05/18/2024 [facility] DATE CREATED AUTHOR AUTHOR'S ORGANIZ ATION 05/21/2024 [facility] DATE CREATED AUTHOR AUTHOR'S ORGANIZ ATION 06/19/2024 [facility] DATE CREATED AUTHOR AUTHOR'S ORGANIZ ATION 06/20/2024 [facility] DATE CREATED AUTHOR AUTHOR'S ORGANIZ ATION 06/23/2024 [facility] DATE CREATED AUTHOR AUTHOR'S ORGANIZ ATION 06/25/2024 [facility] DATE CREATED AUTHOR AUTHOR'S ORGANIZ ATION 07/05/2024 [facility] DATE CREATED AUTHOR AUTHOR'S ORGANIZ ATION 07/08/2024 [facility] DATE CREATED AUTHOR AUTHOR'S ORGANIZ ATION 07/10/2024 [facility] DATE CREATED AUTHOR AUTHOR'S ORGANIZ ATION 07/17/2024 [facility] DATE CREATED AUTHOR AUTHOR'S ORGANIZ ATION 07/21/2024 [facility] DATE CREATED AUTHOR AUTHOR'S ORGANIZ ATION 07/22/2024 [facility] DATE CREATED AUTHOR AUTHOR'S ORGANIZ ATION 07/24/2024 [facility] DATE CREATED AUTHOR AUTHOR'S ORGANIZ ATION 07/28/2024 [facility] DATE CREATED AUTHOR AUTHOR'S ORGANIZ ATION 07/30/2024 [facility] Reason for Visit (unrecogniz ed [...] Comments Patient Question Patient's RN calling from [facility] stating that a cysto procedure was to be done on the patient, but they have not heard anything.Please advise. Reason Comments Consult Reason Comments Cystoscopy-1 Reason Comments Self Catheters/Patient Request Reason Onset Date Comments Medication Refill 02/19/2022 Reason Comments Patient Question Reason Onset Date Comments Medication Refill 04/12/2022 Reason Onset Date Comments Medication Refill 05/09/2022 Reason Comments Choi Catheter Change Reason Comments Fracture Reason Comments Pain Reason Comments Fracture Care Teams (unrecognized sec tion and content) Shrimp Header Relationship Specialty Start Date End Date Tomas Garcia DO [address] [place] [address] PCP - General Family Medicine 04/03/15 Shrimp Header Relationship Specialty Start Date End Date Tomas Garcia DO [address] [place] [address] PCP - General Family Medicine 04/03/15 Shrimp Header Relationship Specialty Start Date End Date Tomas Garcia DO [address] [place] [address] PCP - General Family Medicine 04/03/15 Shrimp Header Relationship Specialty Start Date End Date Tomas Garcia DO [address] [place] [address] PCP - General Family Medicine 04/03/15 Shrimp Header Relationship Specialty Start Date End Date Tomas Garcia DO [address] [place] [address] PCP - General Family Medicine 04/03/15 Shrimp Header Relationship Specialty Start Date End Date Tomas Garcia DO PCP - General Family Practice 08/26/13 Team Status: Inactive Member Role Status Dates Tomas Garcia , Primary Care Provider Active Albino Ballard , DO Emergency Provider Active Team Status: Inactive Member Role Status Dates Tomas Garcia , DO Primary Care Provider Active Gloria Moss PA-C Emergency Provider Active Team Status: Inactive Member Role Status Dates Tomas Garcia , DO Primary Care Provider Active Jennifer Arreaga , [facility] Emergency Provider Active Team Status: Inactive Member Role Status Dates Tomas Garcia , DO Primary Care Provider Active Maciej Rodriguez , DO Emergency Provider Active Team Status: Inactive Member Role Status Dates Tomas Garcia , DO Primary Care Provider Active King Carvajal , DO Emergency Provider Active Team Status: Inactive Member Role Status Dates Tomas Garcia , DO Primary Care Provider Active Jaxon Buchanan Jr, MD Emergency Provider Active Team Status: Active Member Role Status Dates Tomas Garcia , DO Primary Care Provider Active Shrimp Header Relationship Specialty Start Date End Date Tomas Garcia DO PCP - General Family Practice 08/26/13 Shrimp Header Relationship Specialty Start Date End Date Tomas Garcia DO [address] [address] PCP - General Family Medicine 04/03/15 Shrimp Header Relationship Specialty Start Date End Date Tomas Garcia DO PCP - General Family Practice 08/26/13 Shrimp Header Relationship Specialty Start Date End Date Tomas Garcia DO PCP - General Family Practice 08/26/13 Shrimp Header Relationship Specialty Start Date End Date Tomas Garcia DO PCP - General Family Practice 08/26/13 Shrimp Header Relationship Specialty Start Date End Date Tomas Garcia DO PCP - General Family Practice 08/26/13 Shrimp Header Relationship Specialty Start Date End Date Tomas Garcia DO PCP - General Family Practice 08/26/13 Shrimp Header Relationship Specialty Start Date End Date Tomas Garcia DO PCP - General Family Practice 08/26/13 Shrimp Header Relationship Specialty Start Date End Date Tomas Garcia DO PCP - General Family Medicine 08/26/13 Shrimp Header Relationship Specialty Start Date End Date Tomas Garcia DO PCP - General Family [facility] 08/26/13 Nora Mccallum [address] [place] [address] Anesthesiology 03/07/22 Shrimp Header Relationship Specialty Start Date End Date Tomas Garcia DO [facility]CP - [facility] 08/26/13 Nora Mccallum [address] [place] [address] Anesthesiology 03/07/22 Team Status: Inactive Member Role Status Dates Tomas Garcia DO Primary Care Provider Active Merary De MD Admit Provider, Attending Pr ovider Active Monica Gomez NP Other Provider Active FARHANA Harris Other Provider Active Clark Hernandez MD Other Provider Active Jaxon Arzola MD Other Provider Active Shrimp Header Relationship Specialty Start Date End Date Tomas Garcia DO [address] [place] [address] PCP - General Family Medicine 04/03/15 Shrimp Header Relationship Specialty Start Date End Date Tomas Garcia DO PCP - General Family [facility] 08/26/13 Nora Mccallum [address] [place] [address] Anesthesiology 03/07/22 Shrimp Header Relationship Specialty Start Date End Date Tomas Garcia DO [address] [place] [address] PCP - General Family Medicine 04/03/15 Shrimp Header Relationship Specialty Start Date End Date Tomas Garcia DO PCP - General Family Medicine 08/26/13 Nora Mccallum [address] [place], [place] [id number] Anesthesiology 03/07/22 Dolly Valenzuela [address] [place] [address] Referring Family Medicine 01/03/23 Shrimp Header Relationship Specialty Start Date End Date Tomas Garcia DO PCP - General Family Medicine 08/26/13 Nora Mccallum [address] [place] [address] Anesthesiology 03/07/22 Dolly Valenzuela [address] [place] [address] Referring Family Medicine 01/03/23 Shrimp Header Relationship Specialty Start Date End Date Tomas Garcia DO PCP - General Family Medicine 08/26/13 Nora Mccallum [address] [place] [address] Anesthesiology 03/07/22 Dolly Valenzuela [address] [facility] [place] [address] Referring Family Medicine 01/03/23 Shrimp Header Relationship Specialty Start Date End Date Jayant Yuan MD [address] [place] [id number] PCP - General Psychiatry 11/30/18 Team Status: [...] September 06, 2023 End: September 06, 2023 Team Status: Active Member Role Status Dates NON STAFF Primary Care Provider Active Team Status: Inactive Member Role Status Dates NON STAFF Primary Care Provider Active Start: February 11, 2024 End: February 11, 2024 Senthil Torres PA-C Emergency Provider Active Start: February 11, 2024 End: February 11, 2024 Shrimp Header Relationship Specialty Start Date End Date Unallocated, Jonny Velasquez MD [address] [place] [place], [place] [id number] PCP - General 11/28/22 Azul Gorman MD [address] [place] [phone] Referring Physician 01/12/24 Shrimp Header Relationship Specialty Start Date End Date Unallocated, MD Margie [address]riz[address] [place], [place] [id number] PCP - General 11/28/22 Azul Gorman NP [address] [place] [address] Referring Physician 01/12/24 Team Status: Active Member Role Status Dates Tomas Garcia DO Primary Care Provider Active Start: February 11, 2024 Rogelio De MD Attending Provider Active Start: February 11, 2024 Team Status: Inactive Member Role Status Dates Janice Raymond DO RES Attending Provider Activ e Start: March 31, 2024 End: March 31, 2024 Shrimp Header Relationship Specialty Start Date End Date Unallocated, Jonny Velasquez MD [address] [place] [address] PCP - General 11/28/22 Azul Gorman MD [address] [place] [phone] Referring Physician 01/12/24 Shrimp Header Relationship Specialty Start Date End Date Unallocated, [place] [address] PCP - General 11/28/22 Azul Gorman MD [address] [place] [address] Referring Physician 01/12/24 Shrimp Header Relationship Specialty Start Date End Date Unallocated, Jonny Velasquez MD [address] [place] [address] PCP - General 11/28/22 Azul Gorman MD [address] [place] [address] Referring Physician 01/12/24 Shrimp Header Relationship Specialty Start Date End Date Unallocated, Jonny Velasquez MD [address] [place] [address] PCP - General 11/28/22 Azul Gorman MD [address] [place] [address] Referring Physician 01/12/24 Shrimp Header Relationship Specialty Start Date End Date Unallocated, Jonny Velasquez MD [address] [place] [address] PCP - General 11/28/22 Azul Gorman MD [address] [place] [address] Referring Physician 01/12/24 Source Comments (unrecognize d section and content) In the event this informatio n is protected by the Federal Confidentiality of Alcohol and Drug Abuse Patient Records regulations: The Federal rules restrict any use of the information to criminally investigate or prosecute any alcohol or drug abuse patient.[facility] the event this information is protected by the Federal Confidentiality of Alcohol and Drug Abuse Patient Records regulations: The Federal rules restrict any use of the information to criminally investigate or prosecute any alcohol or drug abuse patient.[facility] the event this information is protected by the Federal Confidentiality of Alcohol and Drug Abuse Patient Records regulations: The Federal rules restrict any use of the information to criminally investigate or prosecute any alcohol or drug abuse patient.[facility] the event this information is protected by the Federal Confidentiality of Alcohol and Drug Abuse Patient Records regulations: The Federal rules restrict any use of the information to criminally investigate or prosecute any alcohol or drug abuse patient.[facility] the event this information is protected by the Federal Confidentiality of Alcohol and Drug Abuse Patient Records regulations: The Federal rules restrict any use of the information to criminally investigate or prosecute any alcohol or drug abuse patient.[facility] the event this information is protected by the Federal Confidentiality of Alcohol and Drug Abuse Patient Records regulations: The Federal rules restrict any use of the information to criminally investigate or prosecute any alcohol or drug abuse patient.[facility] the event this information is protected by the Federal Confidentiality of Alcohol and Drug Abuse Patient Records regulations: The Federal rules restrict any use of the information to criminally investigate or prosecute any alcohol or drug abuse patient.[facility] the event this information is protected by the Federal Confidentiality of Alcohol and Drug Abuse Patient Records regulations: The Federal rules restrict any use of the information to criminally investigate or prosecute any alcohol or drug abuse patient.[facility] the event this information is protected by the Federal Confidentiality of Alcohol and Drug Abuse Patient Records regulations: The Federal rules restrict any use of the information to criminally investigate or prosecute any alcohol or drug abuse patient.[facility] the event this information is protected by the Federal Confidentiality of Alcohol and Drug Abuse Patient Records regulations: The Federal rules restrict any use of the information to criminally investigate or prosecute any alcohol or drug abuse patient.[facility] the event this information is protected by the Federal Confidentiality of Alcohol and Drug Abuse Patient Records regulations: The Federal rules restrict any use of the information to criminally investigate or prosecute any alcohol or drug abuse patient.[facility] the event this information is protected by the Federal Confidentiality of Alcohol and Drug Abuse Patient Records regulations: The Federal rules restrict any use of the information to criminally investigate or prosecute any alcohol or drug abuse patient.[facility] the event this information is protected by the Federal Confidentiality of Alcohol and Drug Abuse Patient Records regulations: The Federal rules restrict any use of the information to criminally investigate or prosecute any alcohol or drug abuse patient.[facility] the event this information is protected by the Federal Confidentiality of Alcohol and Drug Abuse Patient Records regulations: The Federal rules restrict any use of the information to criminally investigate or prosecute any alcohol or drug abuse patient.[facility] the event this information is protected by the Federal Confidentiality of Alcohol and Drug Abuse Patient Records regulations: The Federal rules restrict any use of the information to criminally investigate or prosecute any alcohol or drug abuse patient.[facility] the event this information is protected by the Federal Confidentiality of Alcohol and Drug Abuse Patient Records regulations: The Federal rules restrict any use of the information to criminally investigate or prosecute any alcohol or drug abuse patient.[facility] the event this information is protected by the Federal Confidentiality of Alcohol and Drug Abuse Patient Records regulations: The Federal rules restrict any use of the information to criminally investigate or prosecute any alcohol or drug abuse patient.[facility] Center[facility] the event this information is protected by the Federal Confidentiality of Alcohol and Drug Abuse Patient Records regulations: The Federal rules restrict any use of the information to criminally investigate or prosecute any alcohol or drug abuse patient.[facility] CenterIn the event this information is protected by the Federal Confidentiality of Alcohol and Drug Abuse Patient Records regulations: The Federal rules restrict any use of the information to criminally investigate or prosecute any alcohol or drug abuse patient.[facility] CenterIn the event this information is protected by the Federal Confidentiality of Alcohol and Drug Abuse Patient Records regulations: The Federal rules restrict any use of the information to criminally investigate or prosecute any alcohol or drug abuse patient.[facility] CenterIn the event this information is protected by the Federal Confidentiality of Alcohol and Drug Abuse Patient Records regulations: The Federal rules restrict any use of the information to criminally investigate or prosecute any alcohol or drug abuse patient.[facility] CenterIn the event this information is protected by the Federal Confidentiality of Alcohol and Drug Abuse Patient Records regulations: The Federal rules restrict any use of the information to criminally investigate or prosecute any alcohol or drug abuse patient.[facility] Goals (unrecognized section and content) Goals may [...] BE BASED ON THE PRIMARY CLINICAL RECORDS. [facility] [employer] [facility]. provides no warranty or guarantee of the accuracy or completeness of information in this document.
[2024-07-30 22:12] LABS: Bilirubin Urine NEGATIVE (NEGATIVE); Blood Urine NEGATIVE (NEGATIVE); Clarity Urine CLEAR (CLEAR); Color Urine LT. YELLOW (YELLOW); Glucose Urine UA NEGATIVE (NEGATIVE); Ketones Urine NEGATIVE (NEGATIVE); Leukocyte Esterase Urine TRACE (NEGATIVE); Nitrite Urine NEGATIVE (NEGATIVE); Protein Urine NEGATIVE (NEG/TRACE); Specific Gravity Urine <=1.005 (1.005-1.025); Urobilinogen Urine 0.2 EU/dL (0.2-1.0)
[2024-07-30 22:17] LABS: Bacteria Urine TRACE #/HPF (NONE SEEN); Cast Seen? NONE SEEN #/LPF (NONE SEEN); Crystals Seen? None Seen #/HPF (None Seen); Mucus Urine NONE SEEN (NONE SEEN); RBC Urine NONE SEEN #/HPF (0-2); Squamous Epithelial Cell Urine FEW #/LPF (NONE/RARE); Urine Culture Indicated NO
--- NOTE | 2024-07-30 22:38 | ED.FEMALEGU1 ---
HPI - Female Genitourinary General Chief complaint: Urogenital-Female Stated complaint: uti Time Seen by Provider: 07/30/24 22:21 Source: patient Mode of arrival: Wheelchair Limitations: no limitations History of Present Illness HPI Narrative: cc = I think I have a urinary tract infection Patient presents with burning on urination that is consistent with prior episodes of acute UTI. She told me that she is able to produce urine on her own but sometimes has incomplete bladder emptying and therefore she catheterizes herself anywhere between 4 and 6 times a day. She sees a local urologist and told me that he gave her the advice to do so. She apparently has had extensive evaluation for bladder dysfunction, according to her and the son. No systemic symptoms such as vomiting or fever. She denies any flank pain or abdominal pain at this time, but does admit to some low back pain in the center as well as some increased frequency of the sensation to urinate. Related Data Home Medications ?Medication ?Instructions ?Recorded ?Confirmed amlodipine 10 mg tablet 10 mg PO DAILY 12/13/22 02/07/24 celecoxib 200 mg capsule 200 mg PO DAILY 12/13/22 02/07/24 clonazepam 0.5 mg tablet mg 12/13/22 pantoprazole 40 mg tablet,delayed mg PO 12/13/22 release potassium chloride 10 mEq 10 meq PO DAILY 12/13/22 02/07/24 tablet,extended release sodium chloride 1,000 mg soluble 2,000 mg PO TID 12/13/22 02/07/24 tablet trazodone 150 mg tablet 150 mg PO QPM 12/13/22 02/07/24 ondansetron 4 mg disintegrating 4 mg PO Q6H PRN nausea and vomiting 01/03/24 02/07/24 tablet cephalexin 500 mg capsule 500 mg PO BID 02/07/24 02/07/24 cimetidine 300 mg tablet 300 mg PO BID 02/07/24 02/07/24 clonazepam 1 mg tablet 1 mg PO TID 02/07/24 02/07/24 dextromethorphan-guaifenesin 30 1 tab PO Q12H 02/07/24 02/07/24 mg-600 mg tablet extended qturlfh10 hr (Mucus DM) escitalopram oxalate 5 mg tablet 5 mg PO DAILY 02/07/24 02/07/24 fluticasone propionate 50 1 spray intranasal DAILY 02/07/24 02/07/24 mcg/actuation nasal spray,suspension hydrocodone 5 mg-acetaminophen 325 1 tab PO Q6H PRN pain 02/07/24 02/07/24 mg tablet loratadine 10 mg tablet 10 mg PO DAILY 02/07/24 02/07/24 olanzapine 10 mg tablet 10 mg PO QPM 02/07/24 02/07/24 Previous Rx's ?Medication ?Instructions ?Recorded ciprofloxacin HCl 500 mg tablet 500 mg PO BID #13 tabs 07/30/24 (Cipro) Allergies Allergy/AdvReac Type Severity Reaction Status Date / Time haloperidol (From Haldol) Allergy Severe Anaphylaxis Verified 07/30/24 22:01 Phenothiazines Allergy Severe Anaphylaxis Verified 07/30/24 22:01 prochlorperazine (From AdvReac Severe Anaphylaxis Verified 07/30/24 22:01 Compazine) [facility] Social History Smoking status: Current some day smoker Little interest or pleasure in doing things: not at all Feeling down, depressed, or hopeless: not at all Exam Narrative Exam Narrative: Nurses notes and vital signs reviewed and patient is not hypoxic. afebrile General: Well-appearing and in no apparent distress. Skin: Warm, dry, no pallor noted. No rash. Head: Normocephalic, atraumatic. Cardiovascular: Regular Rate and Rhythm without murmur, gallop or rub. Respiratory: No accessory muscle use or respiratory distress. Lungs are clear to auscultation, no wheezing, rales or rhonchi Back: Mild midline lumbar vertebral tenderness. No CVA tenderness GI: Abdomen is soft, non-distended. Normal bowel sounds. No suprapubic masses appreciated. No tenderness to palpation. No rebound, guarding, or rigidity noted. Neurological: A&O x4. No cranial nerve dysfunction observed. No truncal ataxia. Moves all extremities. Sensation intact. Psychiatric: Cooperative and interactive. Normal mood and affect. Constitutional Vital Signs, click to edit/add: Last Vital Signs Temp 97.8 F 07/30/24 21:55 Pulse 64 07/30/24 21:55 Resp 16 07/30/24 21:55 BP 124/63 07/30/24 21:55 Pulse Ox 91 L 07/30/24 21:55 O2 Del Method Room Air 07/30/24 21:55 Course Vital Signs Vital signs: Vital Signs Temperature 97.8 F 07/30/24 21:55 Pulse Rate 64 07/30/24 21:55 Respiratory Rate 16 07/30/24 21:55 Blood Pressure 124/63 07/30/24 21:55 Pulse Oximetry 91 L 07/30/24 21:55 Oxygen Delivery Method Room Air 07/30/24 21:55 Temperature 97.8 F 07/30/24 21:55 Pulse Rate 64 07/30/24 21:55 Respiratory Rate 16 07/30/24 21:55 Blood Pressure 124/63 07/30/24 21:55 Pulse Oximetry 91 L 07/30/24 21:55 Oxygen Delivery Method Room Air 07/30/24 21:55 MDM - Female Genitourinary MDM Narrative Medical decision making narrative: Urinalysis shows findings consistent with acute urinary tract infection. She was given a dose of antibiotic before being discharged home with a prescription for additional antibiotics. She was instructed follow-up with her urologist or her PCP for follow-up or return to the emergency department if she worsens. Lab Data Attestation: I reviewed the patient's lab results. Labs: Lab Results 07/30/24 Range/Units 21:50 Urine Color Lt. yellow (YELLOW) Urine Clarity Clear (CLEAR) Urine pH 6.0 (5.0-9.0) Ur Specific [place] <=1.005 A (1.005-1.025) Urine Protein Negative (NEG/TRACE) mg/dL Urine Glucose (UA) Negative (NEGATIVE) mg/dL Urine Ketones Negative (NEGATIVE) mg/dL Urine Occult Blood Negative (NEGATIVE) Urine Nitrite Negative (NEGATIVE) Urine Bilirubin Negative (NEGATIVE) Urine Urobilinogen 0.2 (0.2-1.0) EU/dL Ur Leukocyte Esterase Trace A (NEGATIVE) Urine RBC None seen (0-2) #/HPF Urine WBC 2-5 A (NONE SEEN) #/HPF Ur Squamous Epith Cells Few A (NONE/RARE) #/LPF Urine Crystals None seen (None Seen) #/HPF Urine Bacteria Trace A (NONE SEEN) #/HPF Urine Casts None seen (NONE SEEN) #/LPF Urine Mucus None seen (NONE SEEN) Ur Culture Indicated? No Discharge Plan Discharge Chief Complaint: Urogenital-Female Clinical Impression: Urinary tract infection Qualifiers: Urinary tract infection type: acute cystitis Hematuria presence: without hematuria Qualified Code(s): N30.00 - Acute cystitis without hematuria Patient Disposition: Home, Self-Care Time of Disposition Decision: 22:41 Prescriptions / Home Meds: New ciprofloxacin HCl [Cipro] 500 mg tablet 500 mg PO BID Qty: 13 0RF No Action ondansetron 4 mg tablet,disintegrating 4 mg PO Q6H PRN (Reason: nausea and vomiting) cephalexin 500 mg capsule 500 mg PO BID cimetidine 300 mg tablet 300 mg PO BID clonazepam 1 mg tablet 1 mg PO TID Mucus DM 30-600 mg tablet extended release 12 hr 1 tab PO Q12H escitalopram oxalate 5 mg tablet 5 mg PO DAILY fluticasone propionate 50 mcg/actuation spray,suspension 1 spray INTRANASAL DAILY hydrocodone-acetaminophen 5-325 mg tablet 1 tab PO Q6H PRN (Reason: pain) loratadine 10 mg tablet 10 mg PO DAILY olanzapine 10 mg tablet 10 mg PO QPM celecoxib 200 mg capsule 200 mg PO DAILY clonazepam 0.5 mg tablet potassium chloride 10 mEq tablet extended release 10 meq PO DAILY amlodipine 10 mg tablet 10 mg PO DAILY pantoprazole 40 mg tablet,delayed release (DR/EC) PO trazodone 150 mg tablet 150 mg PO QPM sodium chloride 1,000 mg tablet,soluble 2,000 mg PO TID Print Language: Azeri Instructions: Urinary Tract Infection in Older Adults (ED) Referrals: MISAEL BATEMAN [Primary Care Provider] - 1 week
[2024-07-30] MEDS: CIPROFLOXACIN HCL 500 MG TABLET PO (23:04)
== END 2024-07-30 23:14 | disposition home or self-care (01) ==
PROVIDERS: Emergency Provider Emergency Medicine; PCP Nurse Practitioner Family
DX: N30.00 Acute cystitis without hematuria (principal); Z87.440 Personal history of urinary (tract) infections
CPT/HCPCS: 81001; 87086; 99283

== ENCOUNTER 2024-08-01 13:04 | Emergency (ER) | payer MEDICARE, MEDICAID, SELFPAY ==
[2024-08-01 13:12] VITALS: BP 135/77; PULSE 83; O2SAT 93; BMI 23.2
[2024-08-01 13:15] VITALS: TEMP 36.5
--- NOTE | 2024-08-01 13:19 | ED_ITS ---
HPI HPI - General Adult General Chief complaint: Urogenital-Female Stated complaint: UTI Time Seen by Provider: 08/01/24 13:10 Source: patient and family Mode of arrival: Wheelchair Limitations: no limitations History of Present Illness HPI narrative: 74-year-old female presents with her son to the emergency department for burning on urination. She was seen here about 4 days ago and put on Cipro and does not feel better. She feels like she cannot empty her bladder. She sees a urologist and has had to self catheterize in the past but she told me she was told not to do that any longer. No fever or vomiting. Related Data Home Medications ?Medication ?Instructions ?Recorded ?Confirmed amlodipine 10 mg tablet 10 mg PO DAILY 12/13/22 02/07/24 celecoxib 200 mg capsule 200 mg PO DAILY 12/13/22 02/07/24 clonazepam 0.5 mg tablet mg 12/13/22 pantoprazole 40 mg tablet,delayed mg PO 12/13/22 release potassium chloride 10 mEq 10 meq PO DAILY 12/13/22 02/07/24 tablet,extended release sodium chloride 1,000 mg soluble 2,000 mg PO TID 12/13/22 02/07/24 tablet trazodone 150 mg tablet 150 mg PO QPM 12/13/22 02/07/24 ondansetron 4 mg disintegrating 4 mg PO Q6H PRN nausea and vomiting 01/03/24 02/07/24 tablet cephalexin 500 mg capsule 500 mg PO BID 02/07/24 02/07/24 cimetidine 300 mg tablet 300 mg PO BID 02/07/24 02/07/24 clonazepam 1 mg tablet 1 mg PO TID 02/07/24 02/07/24 dextromethorphan-guaifenesin 30 1 tab PO Q12H 02/07/24 02/07/24 mg-600 mg tablet extended hr (Mucus DM) escitalopram oxalate 5 mg tablet 5 mg PO DAILY 02/07/24 02/07/24 fluticasone propionate 50 1 spray intranasal DAILY 02/07/24 02/07/24 mcg/actuation nasal spray,suspension hydrocodone 5 mg-acetaminophen 325 1 tab PO Q6H PRN pain 02/07/24 02/07/24 mg tablet loratadine 10 mg tablet 10 mg PO DAILY 02/07/24 02/07/24 olanzapine 10 mg tablet 10 mg PO QPM 02/07/24 02/07/24 Previous Rx's ?Medication ?Instructions ?Recorded ciprofloxacin HCl 500 mg tablet 500 mg PO BID #13 tabs 07/30/24 (Cipro) Allergies Allergy/AdvReac Type Severity Reaction Status Date / Time haloperidol (From Haldol) Allergy Severe Anaphylaxis Verified 08/01/24 13:12 Phenothiazines Allergy Severe Anaphylaxis Verified 08/01/24 13:12 prochlorperazine (From AdvReac Severe Anaphylaxis Verified 08/01/24 13:12 Compazine) Opioid HPI Opioid Management Most Recent Opioid Data: Last Pain Scale 8 12/19/22 13:35 12/19/22 Review of Systems ROS Narrative A ten point review of systems is negative except as noted above. PFSH PFSH Social History Smoking status: Current some day smoker Little interest or pleasure in doing things: not at all Feeling down, depressed, or hopeless: not at all Exam Narrative Exam Narrative: Nurses note and vital signs reviewed and patient is not hypoxic. General: The patient appears well and in no apparent distress. Patient is resting comfortably on cart. Skin: Warm, dry, no pallor noted. There is no rash noted. Head: Normocephalic, atraumatic Eye: Normal conjunctiva, no drainage Ears, Nose, Mouth, and Throat: oral mucosa is moist. Nares patent. Cardiovascular: Regular Rate and Rhythm Respiratory: Patient is in no distress, no accessory muscle use, lungs are clear to auscultation, no wheezing, rales or rhonchi Back: non-tender, no CVA tenderness bilaterally to percussion. GI: Soft and nontender Musculoskeletal: The patient has no evidence of calf tenderness, no pitting edema, symmetrical pulses noted bilaterally Neurological: A&O, normal speech Psychiatric: Cooperative Constitutional Vital Signs, click to edit/add: Last Vital Signs Temp 97.7 F 08/01/24 13:15 Pulse 83 08/01/24 13:12 Resp 16 08/01/24 13:12 BP 135/77 08/01/24 13:12 Pulse Ox 93 L 08/01/24 13:12 O2 Del Method Room Air 08/01/24 13:12 Course Vital Signs Vital signs: Vital Signs Pulse Rate 83 08/01/24 13:12 Respiratory Rate 16 08/01/24 13:12 Blood Pressure 135/77 08/01/24 13:12 Pulse Oximetry 93 L 08/01/24 13:12 Oxygen Delivery Method Room Air 08/01/24 13:12 Temperature 97.7 F 08/01/24 13:15 Pulse Rate 83 08/01/24 13:12 Respiratory Rate 16 08/01/24 13:12 Blood Pressure 135/77 08/01/24 13:12 Pulse Oximetry 93 L 08/01/24 13:12 Oxygen Delivery Method Room Air 08/01/24 13:12 Medical Decision Making MDM Narrative Medical decision making narrative: She had 300 mL on bladder scan and at her request we did a straight cath. She states subsequently she was able to urinate more. The urinalysis today shows no evidence of UTI and she will continue the Cipro that she is already on. She was recommended follow-up with her urologist. Treatment diagnosis and follow-up were discussed with the patient and her family. Differential Diagnosis Differential Diagnosis: Urinary retention, UTI, dysuria Lab Data Lab results reviewed: Yes I reviewed the patient's lab results Labs: Lab Results 08/01/24 Range/Units 13:35 Urine Color Lt. yellow (YELLOW) Urine Clarity Clear (CLEAR) Urine pH 6.0 (5.0-9.0) Ur Specific [place] 1.015 (1.005-1.025) Urine Protein Negative (NEG/TRACE) mg/dL Urine Glucose (UA) Negative (NEGATIVE) mg/dL Urine Ketones Negative (NEGATIVE) mg/dL Urine Occult Blood Negative (NEGATIVE) Urine Nitrite Negative (NEGATIVE) Urine Bilirubin Negative (NEGATIVE) Urine Urobilinogen 0.2 (0.2-1.0) EU/dL Ur Leukocyte Esterase Moderate A (NEGATIVE) Urine RBC 2-5 A (0-2) #/HPF Urine WBC 2-5 A (NONE SEEN) #/HPF Ur Squamous Epith Cells Rare (NONE/RARE) #/LPF Urine Crystals None seen (None Seen) #/HPF Urine Bacteria Small A (NONE SEEN) #/HPF Urine Casts None seen (NONE SEEN) #/LPF Urine Mucus None seen (NONE SEEN) [place] [place] Chief Complaint: Urogenital-Female Clinical Impression: Dysuria Patient Disposition: Home, Self-Care Time of Disposition Decision: 13:55 Condition: Good Mode of Transportation: Private Vehicle Prescriptions / Home Meds: No Action ondansetron 4 mg tablet,disintegrating 4 mg PO Q6H PRN (Reason: nausea and vomiting) cephalexin 500 mg capsule 500 mg PO BID cimetidine 300 mg tablet 300 mg PO BID clonazepam 1 mg tablet 1 mg PO TID Mucus DM 30-600 mg tablet extended release 12 hr 1 tab PO Q12H escitalopram oxalate 5 mg tablet 5 mg PO DAILY fluticasone propionate 50 mcg/actuation spray,suspension 1 spray INTRANASAL DAILY hydrocodone-acetaminophen 5-325 mg tablet 1 tab PO Q6H PRN (Reason: pain) loratadine 10 mg tablet 10 mg PO DAILY olanzapine 10 mg tablet 10 mg PO QPM celecoxib 200 mg capsule 200 mg PO DAILY clonazepam 0.5 mg tablet potassium chloride 10 mEq tablet extended release 10 meq PO DAILY amlodipine 10 mg tablet 10 mg PO DAILY pantoprazole 40 mg tablet,delayed release (DR/EC) PO trazodone 150 mg tablet 150 mg PO QPM sodium chloride 1,000 mg tablet,soluble 2,000 mg PO TID ciprofloxacin HCl [Cipro] 500 mg tablet 500 mg PO BID Qty: 13 0RF Print Language: [place] Instructions: Dysuria (ED) Additional Instructions: Follow-up with your urologist's office Referrals: MISAEL BATEMAN [Primary Care Provider] - 1 week
[2024-08-01 13:40] LABS: Bilirubin Urine NEGATIVE (NEGATIVE); Blood Urine NEGATIVE (NEGATIVE); Clarity Urine CLEAR (CLEAR); Color Urine LT. YELLOW (YELLOW); Glucose Urine UA NEGATIVE (NEGATIVE); Ketones Urine NEGATIVE (NEGATIVE); Leukocyte Esterase Urine MODERATE (NEGATIVE); Nitrite Urine NEGATIVE (NEGATIVE); Protein Urine NEGATIVE (NEG/TRACE); Specific Gravity Urine 1.015 (1.005-1.025); Urobilinogen Urine 0.2 EU/dL (0.2-1.0)
--- OUTSIDE RECORDS SUMMARY | 2024-08-01 13:44 | XMS_ITS | CCD ---
Author Organization [facility] ion Partnership [facility] Care Team Providers Care Finance Assistant Name Role Phone JESIKAJAMES Unavailable Unavailable SELF, REFERRED Unavailable Unavailable STORMY MCDONOUGH Unavailable Unavailable TOMAS GARCIA Unavailable Unavailable Tomas Garcia Primary Care Provider Tomsa Garcia DO Primary Care Provider Tomas Garcia DO Primary Care Provider Tomas GARCIA Primary Care Physician Cady Montoya Unavailable Unavailable Zahira Flores Unavailable Unavailable Alka Tony Unavailable Unavailable Tomas Garcia DO Primary Care Provider DO Tomas Garcia Primary Care Provider DO Maciej Rodriguez Emergency Provider ALEX Arreaga- Jennifer Mcclain Emergency Provider CARSON oMss Emergency Provider MD Jaxon Buchanan Jr Emergency Provider DO King Carvajal Emergency Provider DO Albino Ballard Emergency Provider [phone] Tomas Garcia DO Primary Care Provider Erica Freeman Unavailable Unavailable Jose Tomas GO Primary Care Provider Emilia Barrera Unavailable Unavailable Jose GO, Tomas Guerrier Primary Care Provider AlessioNoran Unavailable Jose DO, Tomas Guerrier Primary Care Provider Jose DO, Tomas Guerrier Primary Care Provider AlessioNoran Unavailable Jose, DO Tomas Guerrier Primary Care Provider MD Merary De Admit Provider MD Merary De Attending Provider [phone] JONAH Gomez Other Provider FARHANA Toro Other Provider MD Clark Hernandez Other Provider MD Jaxon Arzola Other Provider TOMAS GARCIA Primary Care Unavailable GEHLOT, UPENDER Attending Unavailable TOMAS GARCIA Primary Care Unavailable GEHLOT, [...] JOSE, DR TOMAS Guerrier Primary Care Unavailable DURHAM, DR JOSE Edouard Consulting Unavailable HIGHLANDERELIZABETH Admitting [...] GRECHNY ., LULA ARMANDO Consulting Unavailabl e [facility], DR MACDONALD Primary Care Unavailable [...] Attending Unavailable Tomas GARCIA Primary Care Physician [phone] NONE, XXXX Primary Care Physician Unavailab Dolly Neff Unavailable Dolly Valenzuela Primary Care Physician Tomas Garcia DO Primary Care Provider Kwabena RAMOS, [facility] Primary Care Provider [phone] TOMAS GARCIA Primary Care Unavailable FRANTZ SANTANA Attending Unavailable TOMAS GARCIA Primary Care Unavailable TOMAS GARCIA Primary Care Unavailable QUYNH RAINES Attending Unavailable FRANTZ SANTANA Referring Unavailable [facility] Primary Care Unavailable MONSE ALCOCER Referring Unavailable [facility] Primary Care Unavailable ISAI ALFONSO Referring Unavailable SVITLANA Ortiz Emergency Provider Dolly Valenzuela Primary Care Provider AZUL GORMAN Primary Care Physician SVITLANA Ortiz Emergency Provider Dolly Valenzuela Primary Care Provider [facility], [facility] Primary Care Provider CARSON Torres Emergency Provider MD Julian Arechiga Admit Provider [phone] MD Julian Arechiga Attending Provider NO FAMILY, PHYSICIAN Primary Care Provider Unava ilable DO Maciej Rodriguez Emergency Provider [phone] AZUL GORMAN Primary Care Unavailable Gala Black [...] Admitting Unavailable Pocos, Jose Staton Attending Unavailable VITA, AZUL Primary Care Unavailable DO CECI REYES [...] Care Provi lillie Vita RAMOS, Azul Unavailable [phone] POCOS, JOSE Staton Attending Unavailable POCOS, JOSE Staton Referring Unavailable POCOS, JOSE Staton Attending Unavailable POCOS, JOSE Staton Referring Unavailable POCOS, JOSE Staton Attending Unavailable POCOS, JOSE Staton Referring Unavailable POCOS, JOSE Staton Attending Unavailable POCOS, JOSE Staton Referring Unavailable POCOS, JOSE Staton Referring Unavailable POCOS, JOSE Staton Attending Unavailable POCOS, JOSE Staton Referring Unavailable Vita COMMERCIAL INTELLIGENCE MANAGER, Azul Unavailable DO Tomas Garcia Primary Care Provider MD Rogelio De Attending Provider [phone] NON STAFF Primary Care Provider UnavailCARSON Boyd Emergency Provider [phone] DO Janice Raymond Attending Provider NO FAMILY, PHYSICIAN Primary Care Unavailable Julian Arechiga Admitting Unavailable Hawk, Julian Attending Unavailable Dolly Valenzuela Primary Care Unavailable Bebe Ortiz Admitting Unavailable Bebe Ortiz Attending Unavailable Senthil Torres Admitting Unavailable Senthil Torres Attending Unavailable [facility], [facility] Primary Care Unavaila ble NO FAMILY, PHYSICIAN [...] , Patels Provider Primary Care Provi lillie [facility], [facility] Primary Care Physician Unavailab geovanni [...] Unavailable Hajdari, Astrit H Attending Unavailable Carlos Coates Attending Unavailable VITA, AZUL [...] Unavailable VITA, AZUL Primary Care Unavailable DO aMti Taylor Attending Unavailable Black, Basem GKaran Attending [...] Attending Unavailable VITA, AZUL Primary Care Unavailable Haanirudh, Astrit H Attending Unavailable Elidia Chavez Attending Unavailable VITA, AZUL Primary Care Unavailable Johny Willson Attending Unavailable VITA, AZUL Primary Care Unavailable Chandan Adhikari Attending Unavailable VITA, AZUL Primary Care Unavailable Kye Nicole [facility], AZUL Primary Care Unavailable Onofre, John Attending Unavailable Hajdari, Astrit H Attending Unavailable VITA, AZUL Primary Care Unavailable Hajdari, Astrit H Attending Unavailable VITA, AZUL Primary Care Unavailable Chandan Adhikari Attending Unavailable VITA, AZUL Primary Care Unavailable Allergies Allergy Classification Reported Allergen(s) Allergy Type Date of Onset Reaction(s) Facility Acetaminophen / HYDROcodone (2 sources) Acetaminophen / HYDROcodone Drug Allergy 04-03-20 15 [facility] Anti-Epileptic Agents (2 sources) gabapentin Drug Allergy 05-01-20 20 Unknown [facility] Bacitracin (2 sources) Bacitracin Drug Allergy 09-28-19 18 Swelling, Unknown [facility] Butorphanol (2 sources) Butorphanol Drug Allergy 05-01-20 20 [facility] Haloperidol (2 sources) Haloperidol Drug Allergy 08-30-19 11 Shortness Of Breath [facility] Methylphenidate (2 sources) Methylphenidate Drug Allergy 05-01-20 20 Unknown [facility] Mirtazapine (2 sources) Mirtazapine Drug Allergy 05-01-20 20 Unknown [facility] Opioid Agonists (4 sources) fentaNYL Drug Allergy 09-17-19 15 Swelling [facility] Penicillins (antibiotic) (2 sources) Phenothiazine Drug Allergy 08-28-19 11 Shortness Of Breath [facility] Pentoxifylline (2 sources) Pentoxifylline Drug Allergy 08-17-19 20 [facility] Prochlorperazine (2 sources) Prochlorperazine Drug Allergy 04-03-20 15 [facility] QUEtiapine (2 sources) QUEtiapine Drug Allergy 05-01-20 20 Unknown [facility] risperiDONE (2 sources) risperiDONE Drug Allergy 05-01-20 20 Unknown [facility] Shellfish (2 sources) Shellfish Food Allergy 09-28-19 18 [facility] Valproate (2 sources) Valproate Drug Allergy 05-01-20 [facility] (10 sources) bacitracin; Translations: [BACITRACIN] Drug Allergy 09-28-19 18 [facility] Repository (1 source) bacitracin / neomycin / polymyxin b Drug Allergy 09-28-19 18 [facility] Repository (8 sources) butorphanol; Translations: [Stadol] Drug Allergy 09-28-19 18 [facility] Rep[facility] (10 sources) methadone; Translations: [METHADONE] Drug Allergy 09-17-19 15 [facility] Rep[facility] (19 sources) Phenothiazine; Translations: [PHENOTHIAZINES] Drug allergy (disorder) 08-28-19 11 Shortness Of Breath [facility] Repository (9 sources) prochlorperazine Drug Allergy 09-28-19 [facility], Unknown Reaction [facility] Repository (20 sources) Shellfish; Translations: [SHELLFISH DERIVED] Drug allergy (disorder) 09-28-19 Other: See Comments [facility] Repository (1 source) pulse ox probe/tape; Translations: [pulse ox probe/tape] Propensity to adverse reactions (disorder) 09-29-19 [facility] Rep[facility] (20 sources) Acetaminophen / HYDROcodone; Translations: [HYDROCODONE-ACETAM INOPHEN] Drug Allergy 04-03-20 Other: See Comments [facility] (20 sources) Bacitracin; Translations: [bacitracin] Drug Allergy 09-28-19 Swelling, Unknown [facility] (20 sources) Butorphanol; Translations: [butorphanol] Drug Allergy 05-01-20 delusions [facility] (20 sources) fentaNYL; Translations: [FENTANYL] Drug Allergy 11-11-19 Other: See Comments [facility] Comment on above: 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 patient is in cath l ab 03/23/13 and stated to JUAN MIGUEL Martinez that she does not have fentanyl allergy asked that I removed allergy. Michelle to document conversation in progress note. ttrph (20 sources) gabapentin; Translations: [gabapentin] Drug Allergy 05-01-20 Unknown, Unknown (qualifier value) [facility] (20 sources) Haloperidol; Translations: [haloperidol] Drug Allergy 08-30-19 11 Shortness Of Breath, Unknown [facility] (20 sources) Methadone; Translations: [methadone] Drug Allergy 09-17-19 15 Swelling [facility] (20 sources) Methylphenidate; Translations: [methylphenidate] Drug Allergy 05-01-20 20 Unknown, Unknown (qualifier value) [facility] (20 sources) Mirtazapine; Translations: [mirtazapine] Drug Allergy 05-01-20 20 Unknown, Unknown (qualifier value) [facility] (16 sources) Pentoxifylline; Translations: [PENTOXIFYLLINE] Drug Allergy 08-17-19 20 [facility] (20 sources) Prochlorperazine; Translations: [PROCHLORPERAZINE EDISYLATE] Drug Allergy 08-28-19 11 Unknown [facility] (20 sources) QUEtiapine; Translations: [quetiapine] Drug Allergy 05-01-20 20 Unknown, Unknown (qualifier value) [facility] (20 sources) risperiDONE; Translations: [risperidone] Drug Allergy 05-01-20 20 Unknown, Unknown (qualifier value) [facility] (16 sources) Valproate; Translations: [DIVALPROEX SODIUM] Drug Allergy 05-01-20 20 [facility] (11 sources) Phenothiazine Propensity to adverse reactions to drug 08-28-19 11 Shortness Of Breath [facility] (20 sources) Prochlorperazine; Translations: [prochlorperazine] Drug Allergy anaphylaxis [facility] (20 sources) Shellfish; Translations: [shellfish] Food allergy [facility] (20 sources) Valproate; Translations: [divalproex sodium] Drug Allergy unsteady [facility] Comment on above: causes her to be uns teady causes her to be uns teady (20 sources) Adhesive Tape; Translations: [ADHESIVE TAPE (ROSINS)] Allergy to substance 08-30-19 11 Rash [facility] (20 sources) Haloperidol; Translations: [HALOPERIDOL LACTATE] Drug Allergy 08-30-19 11 Shortness of Breath [facility] (20 sources) oxyCODONE; Translations: [oxycodone] Drug Allergy 10-05-19 22 Unknown Reaction [facility] (20 sources) Thiothixene; Translations: [thiothixene] Drug Allergy 10-05-19 22 Unknown Reaction [facility] (20 sources) Cephalexin; Translations: [CEPHALEXIN] Drug Allergy 12-05-19 22 Anaphylaxis [facility] Work Phone: (20 sources) Phenothiazine Drug Allergy 08-28-19 11 Shortness of Breath [facility] (1 source) acetophenazine Drug Allergy 04-10-20 22 [facility] Repository (1 source) Cephalexin Drug Allergy [facility] Repository (2 sources) Prochlorperazine Drug Allergy [facility] Repository (7 sources) Bacitracin / Neomycin / Polymyxin B; Translations: [Neosporin] Drug Allergy [facility] Repository (7 sources) gabapentin; Translations: [Neurontin] Drug Allergy [facility] Repository (7 sources) Haloperidol; Translations: [Haldol] Drug Allergy [facility] Repository (7 sources) Methylphenidate; Translations: [Ritalin] Drug Allergy [facility] Repository (7 sources) Mirtazapine; Translations: [Remeron] Drug Allergy [facility] Repository (7 sources) Naloxone; Translations: [Narcan] Drug Allergy [facility] Repository (7 sources) QUEtiapine; Translations: [SEROquel] Drug Allergy [facility] Repository (7 sources) risperiDONE; Translations: [RisperDAL] Drug Allergy [facility] Repository (7 sources) Valproate; Translations: [Depakote] Drug Allergy [facility] Repository (11 sources) Aminoglycosides (Antibiotic) Drug Allergy 01-12-20 24 [facility] (11 sources) Mirtazapine Drug Allergy 10-10-19 23 Unknown [facility] (11 sources) Pentoxifylline Drug Allergy 08-17-19 20 [facility] (11 sources) Phenothiazine Drug Allergy 08-28-19 11 Anaphylaxis, Shortness of breath [facility] (11 sources) Polymyxin B Drug Allergy 01-12-20 24 [facility] (11 sources) risperiDONE Drug Allergy 10-10-19 23 Unknown [facility] (11 sources) Valproate Drug Allergy 10-10-19 23 Unknown [facility] (11 sources) Shellfish-Derived Products Drug Allergy 10-10-19 Unknown [facility] (1 source) fentaNYL Drug Allergy 02-11-20 [facility] Repository (1 source) Phenothiazine Drug allergy (disorder) 02-11-20 [facility] (1 source) Prochlorperazine Drug Allergy 02-11-20 [facility] Repository Medications Current Medications Medication [...] tablet (20 sources) Opioid Agonist Start: 04-14-2024 [place] 325 mg-5 mg oral tablet 1 tab(s), Oral, q6hr for pain, 4 tab(s), Refill(s) 0, [facility]pharmacy #[id number], 154, cm, 04/14/24 18:05:00 EST, Height/Length Dosing, 66.1, kg, 04/14/24 18:05:00 EST, Weight Dosing Start Date: 04/14/24 Status: Ordered Start: 02-02-2024 End: 02-09-2024 take 1 tablet by mouth every six hours for pain, then take 2 tablets by mouth every six hours for pain HYDROcodone-acetaminophen ([place]) 5-325 MG tablet Indications: Other closed intra-articular [...] mouth every six hours for pain HYDROcodone-acetaminophen ([place]) 5-325 MG tablet Indications: Other closed intra-articular [...] for 3 day(s), 12 tab(s), Refill(s) 0, [facility]/pharmacy #[id number], 154, cm, 07/28/24 11:09:00 EST, Height/Length Dosing, 58.1, kg, 07/28/24 11:09:00 EST, Weight Dosing Start Date: 07/28/24 Stop Date: 07/31/24 Status: Ordered Start: 07-24-2024 End: 07-27-2024 Percocet 5 mg-325 mg oral ta blet 1 tab(s), Oral, q6hr as needed for pain for 3 day(s), 12 tab(s), Refill(s) 0, [facility]/pharmacy #[id number], 154, cm, 07/24/24 8:55:00 EST, Height/Length Dosing, 58.1, kg, 07/24/24 8:55:00 EST, Weight Dosing Start Date: 07/24/24 Stop Date: 07/27/24 Status: Ordered Start: 01-10-2024 End: 01-13-2024 Percocet 5 mg-325 mg oral ta blet 1 tab(s), Oral, q6hr for 3 day(s), 12 tab(s), Refill(s) 0, [facility]/pharmacy #[id number], 162, cm, 01/10/24 20:56:00 EDT, Height/Length [...] 6 hours as needed 0 03/24/2015 Active [id number] 200 actuat albuterol 0.09 mg/actuat metered dose [...] mL, Inhalation, QID, 360 mL, Refill(s) 1, [facility]/pharmacy #[id number], 180.3, cm, 03/20/21 9:01:00 EDT, Height/Length Dosing, 65.6, kg, 03/20/21 8:59:00 EDT, Weight Dosing Start Date: 05/02/21 Status: Ordered albuterol HFA 90 mcg/inh MDI (20 sources) Start: 08-13-2020 take 2 puff(s) by inhalation four times daily for wheezing albuterol HFA 90 mcg/inh MDI 2 puff(s), Inhalation, QID for wheezing, 6.7 gram, Refill(s) 0, [facility]/pharmacy #[id number], 180.3, cm, 08/11/20 1:10:00 EDT, Height/Length Dosing, 66, kg, 08/11/20 1:10:00 EDT, Weight Dosing Start Date: 08/13/20 Status: Ordered amoxicillin 500 mg oral capsule (3 sources) Penicillin-class Antibacterial Start: 04-11-2024 End: 04-18-2024 take 1 capsule by mouth three times daily amoxicillin 500 mg Cap 500 mg = 1 cap(s), Oral, TID, X 7 day(s), # 21 cap(s), Refills(s) 0, Pharmacy: [facility]/pharmacy #[id number], 154, cm, 04/11/24 12:51:00 EST, Height/Length Dosing, 66.1, kg, 04/11/24 12:51:00 EST, Weight Dosing Start Date: 04/11/24 Stop Date: 04/18/24 Status: Ordered amoxicillin 875 mg / clavulanate 125 mg oral tablet (2 sources) Penicillin-class Antibacterial Start: 03-16-2024 End: 03-22-2024 amoxicillin-clavu lanate 875 mg-125 mg Tab 1 tab(s), Oral, BID for 6 day(s), 12 tab(s), Refill(s) 0, [facility]/pharmacy #[id number], 154, cm, 03/14/24 5:05:00 EDT, Height/Length [...] day(s), # 21 cap(s), Refills(s) 0, Pharmacy: [facility]/pharmacy #[id number], 154, cm, 06/17/24 14:08:00 EST, Height/Length Dosing, 63, kg, 06/17/24 14:08:00 EST, Weight Dosing Start Date: 06/17/24 Stop Date: 06/24/24 Status: Ordered Start: 05-03-2024 End: 05-08-2024 take 1 capsule by mouth every twelve hours cephalexin 500 mg Cap 500 mg = 1 cap(s), Oral, q12hr, X 5 day(s), # 10 cap(s), Refills(s) 0, Pharmacy: [facility]/pharmacy #[id number], 154, cm, 05/03/24 20:53:00 EST, Height/Length Dosing, 63.8, kg, 05/03/24 20:53:00 EST, Weight Dosing Start Date: 05/03/24 Stop Date: 05/08/24 Status: Ordered Start: 04-23-2024 End: 04-28-2024 take 1 capsule by mouth every twelve hours Keflex 500 mg Cap 500 mg = 1 cap(s), Oral, q12hr, X 5 day(s), # 10 cap(s), Refills(s) 0, Pharmacy: [facility]/pharmacy #[id number], 154, cm, 04/21/24 13:16:00 EST, Height/Length [...] day(s), # 10 cap(s), Refills(s) 0, Pharmacy: [facility]/pharmacy #[id number], 162, cm, 02/06/24 7:46:00 EDT, Height/Length Dosing, 61, kg, 02/06/24 7:46:00 EDT, Weight Dosing Start Date: 02/06/24 Stop Date: 02/11/24 Status: Ordered Start: 08-10-2023 End: 08-17-2023 take 1 capsule by mouth every twelve hours Keflex 500 mg Cap 500 mg = 1 cap(s), Oral, q12hr, X 7 day(s), # 14 cap(s), Refills(s) 0, Pharmacy: [facility]/pharmacy #[id number], 155, cm, 08/09/23 23:21:00 EDT, Height/Length Dosing, 67.6, kg, 08/09/23 23:21:00 EDT, Weight Dosing Start Date: 08/10/23 Stop Date: 08/17/23 Status: Ordered Start: 07-05-2023 End: 08-22-2023 take 500 mg by mouth three times daily Cephalexin Discontinued 500 MG PO Three times daily 30 July 05, 2023 12:00am August 22, 2023 12:35pm Start: 03-04-2022 End: 03-09-2022 take 1 capsule by mouth every twelve hours cephalexin 500 mg Cap 500 mg = 1 cap(s), Oral, q12hr, X 5 day(s), # 10 cap(s), Refills(s) 0, Pharmacy: [facility]/pharmacy #[id number], 154, cm, 03/04/22 13:21:00 EDT, Height/Length Dosing, 57, kg, 03/04/22 13:21:00 EDT, Weight Dosing Start Date: 03/04/22 Stop Date: 03/09/22 Status: Ordered Start: 11-17-2021 take 1 capsule by [facility] every twelve hours Keflex 500 mg Cap 500 mg = 1 cap(s), Oral, q12hr, # 20 cap(s), Refills(s) 0, Pharmacy: [facility]/pharmacy #[id number], 157, cm, 11/16/21 15:24:00 EDT, Height/Length [...] Ordered Start: 07-15-2021 take 1 capsule by [facility] every twelve hours cephalexin 500 mg Cap 500 mg = 1 cap(s), Oral, q12hr, # 14 cap(s), Refills(s) 0, Pharmacy: [facility] #[id number], 155, cm, 07/15/21 13:55:00 EST, Height/Length Dosing, 67, kg, 07/15/21 13:55:00 EST, Weight Dosing Start Date: 07/15/21 Status: Ordered ciprofloxacin 500 mg oral tablet (20 sources) Quinolone Antimicrobial Start: 07-06-2024 End: 07-13-2024 take 1 tablet by mouth every twelve hours Cipro 500 mg Tab 500 mg = 1 tab(s), Oral, q12hr, X 7 day(s), # 14 tab(s), Refills(s) 0, Pharmacy: [facility]/pharmacy #[id number], 154, cm, 07/06/24 14:01:00 EST, Height/Length Dosing, 63, kg, 07/06/24 14:01:00 EST, Weight Dosing Start Date: 07/06/24 Stop Date: 07/13/24 Status: Ordered Start: 04-21-2024 End: 04-28-2024 take 1 tablet by mouth every twelve hours Cipro 250 mg Tab 250 mg = 1 tab(s), Oral, q12hr, X 7 day(s), # 14 tab(s), Refills(s) 0, Pharmacy: [facility]/pharmacy #[id number], 154, cm, 04/21/24 13:16:00 EST, Height/Length [...] day(s), # 14 tab(s), Refills(s) 0, Pharmacy: [facility]/pharmacy #[id number], 155, cm, 08/09/23 23:21:00 EDT, Height/Length [...] day(s), # 14 tab(s), Refills(s) 0, Pharmacy: [facility]/pharmacy #[id number], 157, cm, 11/16/21 15:24:00 EDT, Height/Length Dosing, 60, kg, 11/16/21 15:24:00 EDT, Weight Dosing Start Date: 11/16/21 Stop Date: 11/23/21 Status: Ordered Start: 11-07-2021 End: 11-14-2021 take 1 tablet by mouth every twelve hours Cipro 250 mg Tab 250 mg = 1 tab(s), Oral, q12hr, X 7 day(s), # 14 tab(s), Refills(s) 0, Pharmacy: [facility]/pharmacy #[id number], 157, cm, 11/07/21 8:56:00 EDT, Height/Length Dosing, 59.9, kg, 11/07/21 8:56:00 EDT, Weight Dosing Start Date: 11/07/21 Stop Date: 11/14/21 Status: Ordered Start: 09-07-2021 take 1 tablet by cachorro th twice daily Cipro 500 mg Tab 500 mg = 1 tab(s), Oral, BID, # 14 tab(s), Refills(s) 0, Pharmacy: [facility]/pharmacy #[id number], 157, cm, 09/07/21 5:48:00 EDT, Height/Length [...] Discontinued 0.5 MG PO Three times daily 90 June 11, 2022 12:00am August 27, 2023 [...] day(s), # 28 cap(s), Refills(s) 0, Pharmacy: [facility]/pharmacy #[id number], 154, cm, 05/16/24 12:57:00 EST, Height/Length [...] BID, # 20 cap(s), Refills(s) 0, Pharmacy: [facility]/pharmacy #[id number], 154, cm, 05/16/24 12:57:00 EST, Height/Length Dosing, 62.3, kg, 05/16/24 12:57:00 EST, Weight Dosing Start Date: 05/16/24 Status: Ordered Start: 04-21-2024 End: 05-01-2024 take 1 capsule by mouth twice daily as needed for constipation Colace 50 mg oral capsule 50 mg = 1 cap(s), Oral, BID, PRN for constipation, X 10 day(s), # 20 cap(s), Refills(s) 0, Pharmacy: [facility]/pharmacy #[id number], 154, cm, 04/21/24 13:16:00 EST, Height/Length Dosing, 66, kg, 04/21/24 13:16:00 EST, Weight Dosing Start Date: 04/21/24 Stop Date: 05/01/24 Status: Ordered Start: 12-17-2021 End: 02-10-2024 take 1 capsule by mouth twice daily Colace 100 mg Cap 100 mg = 1 cap(s), Oral, BID, # 20 cap(s), Refills(s) 0, Pharmacy: [facility]/pharmacy #[id number], 154, cm, 05/16/24 12:57:00 EST, Height/Length [...] mL, Inhalation, QID, 360 mL, Refill(s) 1, [facility]/pharmacy #[id number], 180.3, cm, 03/20/21 9:01:00 EDT, Height/Length [...] day(s), # 30 tab(s), Refills(s) 0, Pharmacy: [facility]/pharmacy #[id number], 155, cm, 02/03/22 10:02:00 EDT, Height/Length Dosing, 58.8, kg, 02/04/22 7:14:00 EDT, Weight Dosing Start Date: 02/05/22 Stop Date: 03/07/22 Status: Ordered ferrous sulfate 325 mg oral tablet (20 sources) Start: 12-17-2021 take 1 tablet by mouth three times daily ferrous sulfate 325 mg Tab 325 mg = 1 tab(s), Oral, TID, # 90 tab(s), Refills(s) 0, Pharmacy: [facility]/pharmacy #[id number], 155, cm, 12/16/21 7:46:00 EDT, Height/Length [...] Start: 11-21-2021 fluticasone 0. 05 mg/inh Nasal [place] 2 spray(s), Nasal, Daily, 1 EA, Refill(s) 5, each nostril, [facility]/pharmacy #[id number], 157, cm, 11/17/21 17:26:00 EDT, Height/Length Dosing, 60, kg, 11/17/21 17:26:00 EDT, Weight Dosing Start Date: 11/21/21 Status: Ordered Start: 09-08-2021 Fluticasone Pr opionate Active 2 SPRAY INTRANASAL Daily September 07, 2021 11:00pm each nares Start: 05-28-2021 fluticasone 0. 05 mg/inh Nasal [place] 2 spray(s), Nasal, Daily, 1 EA, Refill(s) 5, each nostril, [facility]/pharmacy #[id number], 157, cm, 05/26/21 11:56:00 EST, Height/Length Dosing, 66, kg, 05/26/21 11:56:00 EST, Weight Dosing Start Date: 05/28/21 Status: Ordered fluticasone 0.05 mg/inh Nasa l [place] (20 sources) Start: 11-21-2021 fluticasone 0. 05 mg/inh Nasal [place] 2 spray(s), Nasal, Daily, 1 EA, Refill(s) 5, each nostril, [facility] #[id number], 157, cm, 11/17/21 17:26:00 EDT, Height/Length Dosing, 60, kg, 11/17/21 17:26:00 EDT, Weight Dosing Start Date: 11/21/21 Status: Ordered Start: 05-28-2021 fluticasone 0. 05 mg/inh Nasal [place] 2 spray(s), Nasal, Daily, 1 EA, Refill(s) 5, each nostril, [facility]/pharmacy #[id number], 157, cm, 05/26/21 11:56:00 EST, Height/Length [...] day(s), # 10 tab(s), Refills(s) 0, Pharmacy: [facility]/pharmacy #[id number], 154, cm, 03/04/22 13:21:00 EDT, Height/Length [...] Daily, # 255 gram, Refills(s) 1, Pharmacy: [facility]/pharmacy #[id number], 155, cm, 02/25/20 9:42:00 EDT, Height/Length Dosing, 69.9, kg, 02/25/20 9:42:00 EDT, Weight Dosing Start Date: 02/26/20 Status: Ordered naloxone hydrochloride 40 mg/ml nasal spray (20 sources) Opioid Antagonist Start: 09-16-2022 naloxone (Na rcan) 4 mg/0.1 mL nasal spray FOR EMERGENCY USE ONLY. DO NOT SELF ADMINISTER 09/16/2022 Active Start: 07-17-2021 naloxone (NARC AN) 4 mg/actuation [place] Administer 1 spray into one nostril for [...] day(s), # 14 cap(s), Refills(s) 0, Pharmacy: [facility]/pharmacy #[id number], 165, cm, 10/20/21 7:35:00 EDT, Height/Length Dosing, 63, kg, 10/20/21 7:35:00 EDT, Weight Dosing Start Date: 10/20/21 Stop Date: 10/27/21 Status: Ordered Start: 09-06-2021 End: 09-20-2021 take 1 capsule by mouth twice daily Macrobid 100 mg Cap 100 mg = 1 cap(s), Oral, BID, X 14 day(s), # 28 cap(s), Refills(s) 0, Pharmacy: [facility]/pharmacy #[id number], 162, cm, 09/06/21 11:53:00 EDT, Height/Length Dosing, 63.8, kg, 09/06/21 11:53:00 EDT, Weight Dosing Start Date: 09/06/21 Stop Date: 09/20/21 Status: Ordered nitrofurantoin macrocrystals-monohydrate 100 mg Cap (1 source) Start: 10-27-2021 End: 11-01-2021 take 1 capsule by mouth twice daily nitrofurantoin macrocrystals-monohydrate 100 mg Cap 100 mg = 1 cap(s), Oral, BID, X 5 day(s), # 10 cap(s), Refills(s) 0, Pharmacy: [facility]/pharmacy #[id number], 165, cm, 10/27/21 9:52:00 EDT, Height/Length [...] day(s), # 10 cap(s), Refills(s) 0, Pharmacy: [facility]/pharmacy #[id number], 154.9, cm, 03/09/24 6:37:00 EDT, Height/Length [...] day(s), # 10 cap(s), Refills(s) 0, Pharmacy: [facility]/pharmacy #[id number], 154.9, cm, 01/15/22 15:56:00 EDT, Height/Length [...] on above: Take 1 capsule by mo [facility] once daily for 7 days. Take 1 capsule by mo ut twice daily for 5 days. OLANZapine 7.5 [...] Daily, # 30 cap(s), Refills(s) 2, Pharmacy: [facility]/pharmacy #[id number], 162, cm, 08/06/21 8:29:00 EDT, Height/Length Dosing, 63.5, kg, 08/06/21 8:29:00 EDT, Weight Dosing Start Date: 08/28/21 Status: Ordered omeprazole 40 mg Cap-DR (20 sources) Start: 08-28-2021 take 1 capsule by mouth once daily omeprazole 40 mg Cap-DR 40 mg = 1 cap(s), Oral, Daily, # 30 cap(s), Refills(s) 2, Pharmacy: [facility]/pharmacy #[id number], 162, cm, 08/06/21 8:29:00 EDT, Height/Length [...] Nausea/Vomiting, # 12 tab(s), Refills(s) 0, [id number], 154, cm, 05/16/24 12:57:00 EST, Height/Length [...] Daily, # 90 tab(s), Refills(s) 1, Pharmacy: [facility]/pharmacy #[id number], 157, cm, 07/08/21 1:27:00 EST, Height/Length [...] day(s), # 9 tab(s), Refills(s) 0, [id number], 154, cm, 07/12/24 12:55:00 EST, Height/Length Dosing, 62, kg, 07/12/24 12:55:00 EST, Weight Dosing Start Date: 07/12/24 Stop Date: 07/15/24 Status: Ordered Start: 06-17-2024 End: 06-20-2024 take 1 tablet by mouth three times daily Pyridium 100 mg Tab 100 mg = 1 tab(s), Oral, TID, X 3 day(s), # 9 tab(s), Refills(s) 0, [id number], 154, cm, 06/17/24 14:08:00 EST, Height/Length [...] day(s), # 9 tab(s), Refills(s) 0, [id number], 154.9, cm, 02/13/22 11:50:00 EDT, Height/Length Dosing, 57.6, kg, 02/13/22 11:50:00 EDT, Weight Dosing Start Date: 02/13/22 Stop Date: 02/16/22 Status: Ordered Start: 10-20-2021 take 1 tablet by cachorro th three times daily Pyridium 200 mg Tab 200 mg = 1 tab(s), Oral, TID, Take one tab by mouth three times a day for three days, # 9 tab(s), Refills(s) 0, [id number], 157, cm, 11/07/21 8:56:00 EDT, Height/Length Dosing, 59.9, kg, 11/07/21 8:56:00 EDT, Weight Dosing Start Date: 11/07/21 Status: Ordered Start: 09-08-2021 End: 09-10-2021 take 1 tablet by mouth three times daily Pyridium 200 mg Tab 200 mg = 1 tab(s), Oral, TID, X 2 day(s), # 6 tab(s), Refills(s) 0, [id number], 158, cm, 09/08/21 8:41:00 EDT, Height/Length Dosing, 63, kg, 09/08/21 8:41:00 EDT, Weight Dosing Start Date: 09/08/21 Stop Date: 09/10/21 Status: Ordered Start: 07-22-2021 End: 08-07-2021 take 1 tablet by mouth every eight hours Phenazopyridine (Pyridium) 200 mg tablet Discontinued 200 MG PO Q8H July 22, 2021 12:00am August 07, 2021 10:22pm Plenvu oral powder for reconstitution (10 sources) Start: 08-07-2021 take 1 dose by mouth once Plenvu oral powder for reconstitution See Instructions, 1 EA, Refill(s) 0, samples given to patient (Rx), Per physician's instructions. Prior to colonoscopy. Ordered as instructed by Dr. Lopes. Start Date: 08/07/21 Status: Ordered polyethylene glycol 3350 52422 mg powder for oral solution (20 sources) Osmotic Laxative Start: 05-16-2024 take 17 g by mouth once daily Miralax 3350 17 gram packet 17 gm, Oral, Daily, # 10 EA, Refills(s) 0, Pharmacy: [facility]/pharmacy #[id number], 154, cm, 05/16/24 12:57:00 EST, Height/Length [...] 11:08pm Start: 07-09-2021 take 1 capsule by [facility] every other day potassium chloride 10 mEq Cap-ER 10 mEq = 1 cap(s), Oral, Every other day, # 30 EA, Refills(s) 2, Pharmacy: [facility]/pharmacy #[id number], 154.9, cm, 02/01/22 6:28:00 EDT, Height/Length Dosing, 52, kg, 02/01/22 6:28:00 EDT, Weight Dosing Start Date: 02/01/22 Status: Ordered Start: 07-09-2021 take 1 capsule by [facility] every other day potassium chloride 10 mEq Cap-ER 10 mEq = 1 cap(s), Oral, Every other day, # 30 EA, Refills(s) 2, Pharmacy: [facility]/pharm[facility] #[id number], 157, cm, 07/08/21 1:27:00 EST, Height/Length Dosing, 64, kg, 07/08/21 1:27:00 EST, Weight Dosing Start Date: 07/09/21 Status: Ordered Comment on above: TAKE 1 CAPSULE BY [facility] EVERY OTHER DAY pregabalin 150 mg [...] mouth every 8 hours as needed. sennosides, prison 8.6 mg oral tablet (20 sources) Start: 09-07-19 senna (SENOKOT) 8.6 mg tab Take by mouth. 0 09/06/2021 Active Start: 09-06-2021 take 2 tablets by mo uth once daily at bedtime senna 8.6 mg Tab 17.2 mg = 2 tab(s), Oral, Once a day (at bedtime), # 20 tab(s), Refills(s) 0, Pharmacy: [facility]/pharmacy #[id number], 154, cm, 04/21/24 13:16:00 EST, Height/Length [...] Start: 05-24-2022 take 1 tablet by cachorro three times daily, then take 1 tablet [...] TID, # 90 tab(s), Refills(s) 5, Pharmacy: [facility]/pharmacy #[id number], 162, cm, 09/06/21 11:53:00 EDT, Height/Length Dosing, 63.8, kg, 09/06/21 11:53:00 EDT, Weight Dosing Start Date: 09/06/21 Status: Ordered Start: 09-06-2021 take 1 tablet by cachorro th three times daily Sodium Chloride 1 g oral tablet 1 tab, Oral, TID, # 90 tab(s), Refills(s) 5, Pharmacy: [facility]/pharmacy #[id number], 162, cm, 09/06/21 11:53:00 EDT, Height/Length [...] TID, # 90 tab(s), Refills(s) 5, Pharmacy: [facility]/pharmacy #[id number], 157, cm, 07/08/21 1:27:00 EST, Height/Length [...] Nausea, # 90 tab(s), Refills(s) 1, Pharmacy: [facility]/pharmacy #[id number], 154, cm, 03/04/22 13:21:00 EDT, Height/Length Dosing, 57, kg, 03/04/22 13:21:00 EDT, Weight Dosing Start Date: 03/27/22 Status: Ordered Start: 01-17-2022 take 1 tablet by cachorro th three times daily as needed for nausea Zofran ODT 4 mg Tab-Dis 4 mg = 1 tab(s), Oral, TID, PRN Nausea, # 90 tab(s), Refills(s) 1, Pharmacy: [facility]/pharmacy #[id number], 155, cm, 01/16/22 8:27:00 EDT, Height/Length Dosing, 64, kg, 01/16/22 8:27:00 EDT, Weight Dosing Start Date: 01/17/22 Status: Ordered Start: 10-31-2021 take 1 tablet by cachorro th three times daily as needed for nausea Zofran ODT 4 mg Tab-Dis 4 mg = 1 tab(s), Oral, TID, PRN Nausea, # 90 tab(s), Refills(s) 1, Pharmacy: [facility]/pharmacy #[id number], 157, cm, 10/31/21 11:42:00 EDT, Height/Length Dosing, 62.6, kg, 10/31/21 11:42:00 EDT, Weight Dosing Start Date: 10/31/21 Status: Ordered Start: 10-27-2021 take 1 tablet by cachorro th every eight hours as needed for nausea Zofran ODT 4 mg Tab-Dis 4 mg = 1 tab(s), Oral, q8hr, PRN Nausea/Vomiting, # 12 tab(s), Refills(s) 0, Pharmacy: [facility]/pharmacy #[id number], 165, cm, 10/27/21 9:52:00 EDT, Height/Length Dosing, 63, kg, 10/27/21 9:52:00 EDT, Weight Dosing Start Date: 10/27/21 Status: Ordered Start: 09-18-2021 take 1 tablet by cachorro th three times daily as needed for nausea Zofran ODT 4 mg Tab-Dis 4 mg = 1 tab(s), Oral, TID, PRN Nausea, # 90 tab(s), Refills(s) 1, Pharmacy: [facility]/pharmacy #[id number], 158, cm, 09/17/21 9:33:00 EDT, Height/Length Dosing, 63, kg, 09/17/21 9:33:00 EDT, Weight Dosing Start Date: 09/18/21 Status: Ordered Start: 08-04-2021 End: 08-07-2021 take 1 tablet by mouth three times daily as needed for nausea Zofran ODT 4 mg Tab-Dis 4 mg = 1 tab(s), Oral, TID, PRN Nausea, # 10 tab(s), Refills(s) 0, Pharmacy: [facility]/pharmacy #[id number], 162, cm, 08/04/21 11:45:00 EST, Height/Length Dosing, 70, kg, 08/04/21 11:45:00 EST, Weight Dosing Start Date: 08/04/21 Stop Date: 08/07/21 Status: Ordered Completed/Discontinued Medications Medication Drug Class(es) Dates Sig (Normalized) Sig (Original) amLODIPine 5 mg oral tablet (20 sources) Dihydropyridine Calcium Channel Alberto Start: 06-11-2022 take 10 mg by mouth once daily Amlodipine Active 10 MG PO Daily June 11, 2022 12:00am Start: 05-24-2022 End: [...] Daily, # 90 tab(s), Refills(s) 3, Pharmacy: [facility]/pharmacy #[id number], 154.9, cm, 12/20/21 13:56:00 EDT, Height/Length [...] TID, # 180 tab(s), Refills(s) 5, Pharmacy: [facility]/pharmacy #[id number], 154, cm, 02/17/22 16:05:00 EDT, Height/Length [...] qMonth, # 10 mL, Refills(s) 1, [id number], 157, cm, 07/08/21 1:27:00 EST, Height/Length Dosing, 64, kg, 07/08/21 1:27:00 EST, Weight Dosing Start Date: 07/09/21 Status: Ordered Start: 07-09-2021 inject 1 mL by intra muscular injection every month cyanocobalamin 1000 mcg/mL Inj 1,000 microgram = 1 mL, IntraMuscular, qMonth, # 10 mL, Refills(s) 1, [id number], 157, cm, 07/08/21 1:27:00 EST, Height/Length Dosing, 64, kg, 07/08/21 1:27:00 EST, Weight Dosing Start Date: 07/09/21 Status: Ordered docusate sodium 50 mg / sennosides, [place] 8.6 mg oral tablet (20 sources) Start: [...] day(s), # 15 tab(s), Refills(s) 0, Pharmacy: [facility]/pharmacy #[id number], 155, cm, 05/03/22 11:54:00 EST, Height/Length [...] Discontinued Start: 06-28-2022 take 1 tablet by cachoror twice daily risperiDONE (RISPERDAL) 2 MG tablet [...] puff(s), Inhalation, BID, 1 EA, Refill(s) 0, [facility]/pharmacy #[id number], 180.3, cm, 08/11/20 1:10:00 EDT, Height/Length Dosing, 66, kg, 08/11/20 1:10:00 EDT, Weight Dosing Start Date: 3/21/21 Status: Ordered thiothixene 2 mg oral capsule [...] 10:09am Start: 07-06-2021 take 1 capsule by mo [facility] once daily venlafaxine 37.5 mg Cap-ER 37.5 mg = 1 cap(s), Oral, Daily, stop citalopram, # 30 cap(s), Refills(s) 5, Pharmacy: [facility]/pharmacy #[id number], 155, cm, 10/01/21 18:15:00 EDT, Height/Length Dosing, 67.4, kg, 10/01/21 18:15:00 EDT, Weight Dosing Start Date: 10/01/21 Status: Ordered vitamin b12 1 mg/ml injectable solution (20 sources) Vitamin B12 Start: 07-22-2022 inject 1 mL by intramuscular injection every month cyanocobalamin 1000 mcg/mL Inj 1,000 microgram = 1 mL, IntraMuscular, qMonth, # 10 mL, Refills(s) 1, Pharmacy: [facility]/pharmacy #[id number], 160, cm, 05/24/22 21:59:00 EST, Height/Length [...] qMonth, # 10 mL, Refills(s) 1, Pharmacy: [facility]/pharmacy #[id number], 160, cm, 05/24/22 21:59:00 EST, Height/Length [...] Visual hallucinations; Translations: [Visual hallucinations] Onset: 04-28-20 Episodic Chronic kidney disease (20 sources) Chronic [...] foot 09-11-2020 Episodic Other aftercare (1 source) 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; Translations: [SNF (CURRENT) USE OF ANTICOAGULANTS] Onset: 09-28-19 Episodic Other aftercare (20 sources) Long-term current use of anticoagulant; Translations: [FDC (current) use of anticoagulants] 09-30-2014 Episodic Other aftercare (7 sources) Polypharmacy ; Translations: [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] 05-27-2022 Episodic Other aftercare (7 sources) Prescribed medication regimen behavior finding; Translations: [FDC (current) use of opiate analgesic] 05-27-2022 Episodic Other aftercare (1 source) 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; Translations: [Long-term [...] Disorder of brain; Translations: [Encephalopathy, unspecified] Onset: 09-07-1905-25-2022 Chronic Other nervous system disorders (1 source) [...] sexually transmitted disease) (20 sources) Atypical pneumonia 03-25-2021 Episodic Poisoning by other medications and drugs [...] Onset: 02-04-20 22 Chronic Unclassified (1 source) [place] coma scale score 13-15, at hospital admission; [...] 12-24-2018 Episodic Other aftercare (2 sources) 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; Translations: [Long-term (current) [...] Onset: 12-05-2021 Episodic Unclassified (20 sources) Agent [place] (substance) Resolved: 03-01-2010 10-21-2018 Unclassified (20 sources) [...] 2024 ED Clinical Summary ED Clinical Summary [place] [address] ED Clinical Summary Person Information Name: MAEGAN DYE/[facility] Age: 74 Years : 1950 Sex: Female Language: Peruvian PCP: AZUL GORMAN CNP Marital Status: Phone: [...] 07/28/2024 11:57:47 07/28/2024 11:57:47 07/28/2024 11:57:47 ADDRESS: [facility] [address] [facility] [phone] PHYS DOC NOTES: MEDICAL INFORMATION: Prescriptions Given: New Medications [id number], [address] [place], [place] [phone], [phone] acetaminophen-oxycodone (acetaminophen-oxycodone 325 mg-5 mg Tab) 1 [...] 5. fluticasone nasal (fluticasone 0.05 mg/inh Nasal [place]) 2 Sprays Nasal Inhalation every day. each nostril. Refills: 5. loratadine (loratadine 10 mg oral capsule) 1 Capsules By Mouth every day. [facility] Prescription (Walker) Dispense one walker. Refills: 0. [...] Fracture Follow up: With: Address: When: [place] [address] Business (1) In 3 days 07/31/2024 Comments: Call Dr for diagnosis based follow up DIAGNOSIS: Right rib fracture Normal [facility] ED Note-Physicianon 07-29-19 ED Note-Physician ED Note-Physician Basic Information Time Seen: Rodrigue John PA-C 07/28/2024 11:00 Chief Complaint hx right sided rib fx. toolk last of her percocet at 0200 this am History of Present Illness A 74-year-old female reports emergency department with concerns of right sided rib pain. Reports history of a fracture of her rib on her right side. Reports that she was given A small amount of pain medication, but currently ran out. Reports that she cannot get in with her primary care doctor for another couple of weeks. She denies any new symptoms. Denies any fevers chills or cough associated with this. Review of Systems No other aggravating or relieving factors no other associated symptoms no other prior treatments or complaints. Family: Reviewed and noncontributory Social: lives at home Review of systems negative unless otherwise specified in the HPI. Physical Exam Vitals & Measurements T: 36.7 ???C(Oral) HR: 78(Peripheral) RR: 20 BP: 131/74 SpO2: 96% HT: 154 cm WT: 58.1 kg BMI: 24.5 General: The patient appears well and in no apparent distress. Patient is resting comfortably on bed. afebrile Skin: Warm, dry, no pallor noted. Head: Normocephalic, atraumatic Neck: No JVD Eye: PERRLA, EOMI ENT: Moist mucus membranes Cardiovascular: Regular rate. normal peripheral perfusion Respiratory: No respiratory distress. no accessory muscle use. no obvious audible wheezing. Lung sounds clear Chest Wall: no deformity mild right lateral chest wall tenderness on palpation. Musculoskeletal: normal ROM, no deformity, no swelling GI: No obvious distention Neurological: A&O. moves all extremities equal strength and symmetry Psychiatric: Cooperative and appropriate Medical Decision Making MEDICAL DECISION MAKING Number and Complexity of Problems Differential Diagnosis: [] [facility] Data External documents reviewed: [] My EKG interpretation: [] My CT interpretation: [] My X-ray interpretation: [] My Ultrasound interpretation: [] Decision rules/scores evaluated: [] Discussed with: [] Treatment and Disposition ED Course: 74-year-old female reports to the emergency department with concerns of right rib fracture pain. Reports has had this pain and Percocet is helping. Would like a refill of medications to help with her pain. Reports again with her family doctor for another couple weeks. Exam patient here does reveal some mild tenderness. I did see that she was recently diagnosed with rib fracture, as I did prescribe another 3 days of Percocet for breakthrough pain. Follow-up with your primary care provider in 3 to 5 days. If symptoms worsen, do not improve, or new symptoms arise please report back to emergency department for further evaluation. The patient was understanding and agreeable to plan moving forward. Shared decision making: [] Code status: [] Assessment/Plan Right rib fracture (S22.31XA: Fracture of one rib, right side, initial encounter for closed fracture) Ordered: acetaminophen-oxycodone, 1 tab(s), Oral, q6hr for pain for 3 day(s), 12 tab(s), Refill(s) 0, [id number], 154, cm, 07/28/24 11:09:00 EST, Height/Length Dosing, 58.1, kg, 07/28/24 11:09:00 EST, Weight Dosing Disposition Plan Patient Discharge Condition stable Discharge Disposition to home Discharge Prescription List Prescriptions acetaminophen-oxycodone 325 mg-5 mg Tab, 1 tab(s), Oral, q6hr, PRN Follow-up With When Contact Information AZUL GORMAN In 3 days 07/31/2024 EST [address] [place] [address] Business (1) Additional Instructions: Call Dr for diagnosis based follow up Patient Education Rib Fracture Attestation Patient seen and evaluated by the physician bookkeeping assistant. Attending physician was present in the emergency department and supervised care. This visit was performed by both the physician and an APC. I performed all aspects of the MDM as documented. This report was transcribed using voice recognition software. Every effort was made to ensure accuracy, however, inadvertently computerized fisheries director mistakes may be present. Appropriate healthcare PPE [...] obstructive pulmonary disease Chronic pain in right fo (more content not included)... Normal [facility] Comment on above: Result Comment: Elec tronically Signed By: Rodrigue John PA-C\.br\Date and Time Signed: 07/28/24 14:03 EST\.br\Electronically Co-Signed By: Didier Hooks M.D.\.br\Date and Time Co-Signed: 07/28/24 16:08 EST ED Patient Summaryon 025 ED Patient Summary ED Patient Summary [place] [address] Patient Discharge Instructions Person Information Name: MAEGAN DYE Age: 74 Years Arrival Date: 07/28/2024 10:55:26 Discharge Diagnosis: Right rib fracture Primary Care Physician: AZUL GORMAN CNP Provider Information Primary Provider: Neva Newton, Didier Martins Advanced Supervisor Boiler Repair:Rodrigue John PA-C. The exam and treatment you received in the Emergency Department were for an urgent problem and are not intended as complete care. It is important that you follow up with a doctor, nurse practitioner, or physician???s bookkeeping assistant for ongoing care. If your symptoms become worse or you do not improve as expected and you are unable to reach your usual health care provider, you should return to the Emergency Department. We are available 24 hours a day. MARNIE MAEGAN has been given the following list of patient education materials, prescriptions and follow-up instructions: Follow-up Instructions: With: Address: When: AZUL [address] [place], [place] [id number] [employer] (1) In 3 days 07/31/2024 Comments: Call [...] opioids can be used to help relieve tbyysmzp-eg-[id number] pain and are often prescribed following a [...] with sally (more content not included)... Normal [facility] ED Note-Physicianon 07-28-19 ED Note-Physician ED Note-Physician [...] for 3 day(s), 12 tab(s), Refill(s) 0, [facility] #[id number], 154, cm, 07/24/24 8:55:00 EST, Height/Length Dosing, [...] AZUL GORMAN In 3 days 07/27/[address] [place], [place] [address] [place] [address] [facility] (1) Additional Instructions: Patient Education Rib Fracture [...] made to ensure accuracy, however, inadvertently computerized fisheries director mistakes may be present. Appropriate healthcare PPE [...] Vitamin D deficiency Historical Accidental fall Agent [place] ASTHMA Benzodiazepine withdrawal Bipolar disorder Callus of foot Cerebral hemorrhage chronic back pain Chronic GERD Chronic k (more content not included)... Normal [facility] Comment on above: Result Comment: Elec tronically Signed By: Malick Ho PA-C\.br\Date and Time Signed: 07/24/24 09:42 EST\.br\Electronically Co-Signed By: Chandan Adhikari DO\.br\Date and Time Co-Signed: 07/27/24 07:04 EST ED Clinical Summaryon 2024 ED Clinical Summary ED Clinical Summary [place] [id number] ED Clinical Summary Person Information Name: MAEGAN DYE/[facility] Age: 74 Years : 1950 Sex: Female Language: Peruvian PCP: AZUL GORMAN CNP Marital Status: Visit [...] 07/25/2024 11:40:33 07/25/2024 11:40:33 07/25/2024 11:40:33 ADDRESS: [address] [place] [address] [address] [facility] [phone] PHYS DOC NOTES: MEDICAL INFORMATION: Prescriptions Given: [...] 5. fluticasone nasal (fluticasone 0.05 mg/inh Nasal [place]) 2 Sprays Nasal Inhalation every day. each nostril. Refills: 5. loratadine (loratadine 10 mg oral capsule) 1 Capsules By Mouth every day. [facility] Prescription (Walker) Dispense one walker. Refills: 0. [...] Fracture Follow up: With: Address: When: AZUL GORMAN [address] [place], [place] [address] [id number] [facility] (1[place]op In 3 days 07/28/2024 Comments: Continue Percocet that was prescribed to you yesterday. Make sure to follow-up with your primary doctor as discussed. Continue the incentive spirometry every 2 hours as instructed. Return to the emergency room if your pain gets worse, shortness of breath, fever or any new symptoms. DIAGNOSIS: 1:Fracture of rib of right side Normal [facility] ED Note-Physicianon 07-26-19 ED Note-Physician ED Note-Physician Basic Information Time Seen: Neva Newton Didier Lakshmi 07/25/2024 09:36 Chief Complaint recent dx right rib fx, given percocet states it isn't helping. 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 Normal [facility] Comment on above: Result Comment: Elec tronically Signed By: Didier Hooks M.D.\.br\Date and Time Signed: 07/25/24 18:29 EST ED Patient Summaryon 025 ED Patient Summary ED Patient Summary [address] [address] Patient Discharge Instructions Person Information Name: MAEGAN DYE Age: 74 Years Arrival Date: 07/25/2024 09:26:19 Discharge Diagnosis: 1:Fracture of rib of right side Primary Care Physician: AZUL GORMAN CNP Provider Information Primary Provider: Didier Hooks M.D. Advanced Supervisor Boiler Repair:None The exam and treatment you received in the Emergency Department were for an urgent problem and are not intended as complete care. It is important that you follow up with a doctor, nurse practitioner, or physician???s bookkeeping assistant for ongoing care. If your symptoms [...] Follow-up Instructions: With: Address: When: AZUL GORMAN [address] [place] [address] [place] [id number] [facility] (1) In 3 days 07/28/2024 Comments: Continue [...] opioids can be used to help relieve xwfdsxas-gd-orsprk pain and are often prescribed following a [...] the toilet, (more content not included)... Normal [facility] UA with Cult Rflxon 07-26-19 25 Bilirubin Ql (U) Negative Normal Negative [facility] Comment on above: Performed By: #### 4 [id number] #### [facility] [address] [place] [address] Clarity (U) Clear Normal Clear [facility] Comment on above: Performed By: #### 4 [id number] #### [facility] [address] [facility] [place] [place] [address] Color (U) Colorless Abnormal Yellow [facility] Comment on above: Result Comment: Micr oscopic readings are only performed on those samples that meet specific criteria set forth by [facility]. Performed By: #### 4 [id number] #### [facility] [address] [place] [address] Glucose Ql (U) Negative Normal Negative [facility] Comment on above: Performed By: #### 4 [id number] #### [facility] [address] [place] [address] Hemoglobin Auto test strip (U) [Mass/Vol] Negative Normal Negative [facility] Comment on above: Performed By: #### 4 [id number] #### [facility] [address] [place] [address] Ketones Auto test strip Ql (U) Negative Normal Negative [facility] Comment on above: Performed By: #### 4 [id number] #### [facility] [address] [place] [address] Leukocyte esterase Auto test strip Ql (U) Negative Normal Negative [facility] Comment on above: Performed By: #### 4 [id number] #### [facility] [address] [place] [address] Nitrite Auto test strip Ql (U) Negative Normal Negative [facility] Comment on above: Performed By: #### 4 [id number] #### [facility] [address] [place] [address] pH (U) 7.0 [pH] Invalid Interpretation Code 5.0-9.0 [facility] Comment on above: Performed By: #### 4 [id number] #### [facility] [address] [place] [address] Protein Ql (U) Negative Normal Negative [facility] Comment on above: Performed By: #### 4 [id number] #### [facility] [address] [place] [address] Specific gravity (U) [Rel density] 1.005 Invalid Interpretation Code 1.005-1.03 0 [facility] Comment on above: Performed By: #### 4 [id number] #### [facility] [address] [place] [address] Urobilinogen (U) [Mass/Vol] Negative Normal Negative [facility] Comment on above: Performed By: #### 4 [id number] #### [facility] [address] [place] [address] Type of Urine collection method Clean Catch Normal [facility] Comment on above: Performed By: #### 4 [id number] #### [facility] [address] [place] [address] URINALYSISOrdered By: SYSTEM SYSTEM on 07-25-2024 Bilirubin Ql (U) Negative Normal Negativemg /dL [facility] UA Auto SS Clarity (U) Clear (07/25/24 10:21 AM) Normal Clear [facility] UA Auto SS Color (U) Colorless 1 *ABN* (07/25/24 10:21 AM) Invalid Interpretation Code Yellow [facility] UA Auto SS Comment on above: Interpretive Data: M icroscopic readings are only performed on those samples that meet specific criteria set forth by [facility]. Glucose Ql (U) Negative Normal Negativemg [...] /dL [facility] UA Auto SS URINALYSISOrdered By: Didier Hooks on 07-25-2024 UA Spec Desc Clean Catch (07/25/24 10:21 AM) Normal [facility] UA Auto SS ED Clinical Summaryon 2024 ED Clinical Summary ED Clinical Summary [place] [address] ED Clinical Summary Person Information Name: MAEGAN DYE[facility] Age: 74 Years : 1950 Sex: Female Language: Peruvian PCP: AZUL GORMAN CNP Marital Status: MRN: [id number] Visit Id: Visit Reason: Rib/trunk pain-swelling; RIB [...] ADDRESS: [address] [facility] [id number] PHYS DOC NOTES: MEDICAL INFORMATION: Prescriptions Given: New Medications [id number], [address], [place] [phone], [phone] acetaminophen-oxycodone (Percocet 5 mg-325 mg oral tablet) [...] 5. fluticasone nasal (fluticasone 0.05 mg/inh Nasal [place]) 2 Sprays Nasal Inhalation every day. each nostril. Refills: 5. loratadine (loratadine 10 mg oral capsule) 1 Capsules By Mouth every day. [facility] Prescription (Walker) Dispense one walker. Refills: 0. [...] Fracture Follow up: With: Address: When: AZUL GORMAN [address] [place] [address] Business (1) In 3 days 07/27/2024 DIAGNOSIS: Rib fracture Normal [facility] ED Patient Summaryon 025 ED Patient Summary ED Patient Summary [place] [address] Patient Discharge Instructions Person Information Name: MEAGAN DYE Age: 74 Years Arrival Date: 07/24/2024 08:42:29 Discharge Diagnosis: Rib fracture Primary Care Physician: AZUL GORMAN CNP Provider Information Primary Provider: Chandan Adhikari DO Advanced Supervisor Boiler Repair:Malick Ho PA-C The exam and treatment you received in the Emergency Department were for an urgent problem and are not intended as complete care. It is important that you follow up with a doctor, nurse practitioner, or physician???s bookkeeping assistant for ongoing care. If your symptoms [...] Instructions: With: Address: When: AZUL GORMAN [place], [place] [id number] Business (1) In 3 days 07/27/2024 In the event that this physician does not participate in your insurance network, please consult with your insurance company to find a nearby participating provider. Patient Education Materials: Rib Fracture A MESSAGE TO ALL PATIENTS REGARDING OPIOIDS PRESCRIPTION OPIOIDS: WHAT YOU NEED TO KNOW Prescription opioids can be used to help relieve ldierdgp-ef-mjxtuk pain and are often prescribed following a [...] be struggling with addiction, tell your health pet caregiver and ask for guidance o (more content not included)... Normal [facility] XR Ribs Unilat 3 Views Right w/ [...] Jackson MD Transcribed by: GLORIA Technologist: JASON Aranda [facility] BMPon 07-20-2024 Anion gap [Moles/Vol] 11 mmol/L Normal 6-16 [facility] Comment on above: Performed By: #### 2 [id number] #### [facility] [address] [place] [address] Calcium [Mass/Vol] 9.2 mg/dL Normal 8.9-11.1 [facility] Comment on above: Performed By: #### 2 [id number] #### [facility] [address] [place] [address] Chloride [Moles/Vol] 97 mmol/L Low 101-111 [facility] Comment on above: Performed By: #### 2 [id number] #### [facility] [address] [place] [address] CO2 [Moles/Vol] 29 mmol/L Normal 21-31 [facility] Comment on above: Performed By: #### 2 [id number] #### [facility] [address] [place] [address] Creatinine [Mass/Vol] 0.9 mg/dL Normal 0.5-1.3 [facility] Comment on above: Performed By: #### 2 [id number] #### [facility] [address] [place] [address] Glucose [Mass/Vol] 99 mg/dL Normal 55-199 [facility] Comment on above: Performed By: #### 2 [id number] #### [facility] [address] [place] [address] Potassium [Moles/Vol] 4.0 mmol/L Normal 3.5-5.3 [facility] Comment on above: Performed By: #### 2 [id number] #### [facility] [address] [place] [address] Sodium [Moles/Vol] 133 mmol/L Low 135-145 [facility] Comment on above: Performed By: #### 2 [id number] #### [facility] [address] [place] [address] Urea nitrogen [Mass/Vol] 13 mg/dL Normal 5-21 [facility] Comment on above: Performed By: #### 2 [id number] #### [facility] [address] [place] [address] Urea nitrogen/Creatinine [Mass ratio] 14 No Units Normal 10-20 [facility] Comment on above: Performed By: #### 2 [id number] #### [facility] [address] [place] [address] CBC w/ Auto Diffon 5 Basophils/100 WBC (Bld) 0.8 % Normal 0.0-2.0 [facility] Comment on above: Performed By: #### 2 [id number] #### [facility] [address] [place] [address] Basophils/Leukocytes Auto (Bld) [Pure # fraction] 0.0 E9/L Normal 0.0-0.2 [facility] Comment on above: Performed By: #### 2 [id number] #### [facility] [address] [place] [address] Eosinophils (Bld) [#/Vol] 0.2 E9/L Normal 0.0-0.5 [facility] Comment on above: Performed By: #### 2 [id number] #### [facility] [address] [place] [address] Eosinophils/100 WBC (Bld) 2.9 % Normal 0.0-8.0 [facility] Comment on above: Performed By: #### 2 [id number] #### [facility] [address] [place] [address] Erythrocyte distribution width (RBC) [Ratio] 13.8 % Normal 10.9-14.2 [facility] Comment on above: Performed By: #### 2 [id number] #### [facility] [address] [place] [address] Hematocrit (Bld) [Volume fraction] 38.9 % Normal 34.0-46.0 [facility] Comment on above: Performed By: #### 2 [id number] #### [facility] [address] [place] [address] Hemoglobin (Bld) [Mass/Vol] 13.0 g/dL Normal 12.0-16.0 [facility] Comment on above: Performed By: #### 2 055019 #### [facility] [address] [place] [address] Lymphocytes (Bld) [#/Vol] 1.4 E9/L Normal 1.0-4.0 [facility] Comment on above: Performed By: #### 2 [id number] #### [facility] [address] [place] [address] Lymphocytes/100 WBC (Bld) 25.2 % Normal 14.0-50.0 [facility] Comment on above: Performed By: #### 2 720267 #### [facility] [address] [place] [address] MCH (RBC) [Entitic mass] 29.4 pg Normal 27.0-34.0 [facility] Comment on above: Performed By: #### 2 066709 #### [facility] [address] [place] [address] MCHC (RBC) [Mass/Vol] 33.3 g/dL Normal 31.4-36.0 [facility] Comment on above: Performed By: #### 2 [id number] #### [facility] [address] [place] [address] MCV (RBC) [Entitic vol] 88.4 fL Normal 80.0-100.0 [facility] Comment on above: Performed By: #### 2 [id number] #### [facility] [address] [place] [address] Monocytes (Bld) [#/Vol] 0.6 E9/L Normal 0.2-1.0 [facility] Comment on above: Performed By: #### 2 745144 #### [facility] [address] [place] [address] Neutrophils (Bld) [#/Vol] 3.5 E9/L Normal 2.0-7.5 [facility] Comment on above: Performed By: #### 2 [id number] #### [facility] [address] [place] [address] Neutrophils/100 WBC (Bld) 61.1 % Normal 36.0-75.0 [facility] Comment on above: Performed By: #### 2 [id number] #### [facility] [address] [place] [address] Platelet mean volume (Bld) [Entitic vol] 7.0 fL Normal 6.4-10.8 [facility] Comment on above: Performed By: #### 2 [id number] #### [facility] [address] [place] [address] Platelets (Bld) [#/Vol] 244.0 E9/L Normal 150.0-500. 0 [facility] Comment on above: Performed By: #### 2 550103 #### [facility] [address] [place] [address] RBC (Bld) [#/Vol] 4.4 E12/L Normal 4.3-5.9 [facility] Comment on above: Performed By: #### 2 467244 #### [facility] [address] [place] [address] WBC corrected for nucl RBC Auto (Bld) [#/Vol] 5.7 E9/L Normal 4.0-11.0 [facility] Comment on above: Performed By: #### 2 [id number] #### [facility] [address] [place] [address] CHEMISTRYOrdered By: SYSTEM SYSTEM on 07-20-2024 Albumin [...] MD Transcribed by: GLORIA Technologist: MIKO Aranda [facility] ED Clinical Summaryon 2024 ED Clinical Summary ED Clinical Summary [place] [id number] ED Clinical Summary Person Information Name: MAEGAN DYE/[facility] Age: 74 Years : 1950 Sex: Female Language: Peruvian PCP: AZUL GORMAN CNP Marital Status: Visit [...] 07/20/2024 07:51:29 07/20/2024 07:51:29 07/20/2024 07:51:29 ADDRESS: [address] [place] [id number] PHYS DOC NOTES: Addendum by Malick Ho PA-C [...] 5. fluticasone nasal (fluticasone 0.05 mg/inh Nasal [place]) 2 Sprays Nasal Inhalation every day. each nostril. Refills: 5. loratadine (loratadine 10 mg oral capsule) 1 Capsules By Mouth every day. [facility] Prescription (Walker) Dispense one walker. Refills: 0. [...] Pain, Adult Follow up: With: Address: When: [place] [address] Datanyze (1Wallop In 3 days 07/23/2024 DIAGNOSIS: Acute upper abdominal pain Normal [facility] ED Note-Physicianon 07-20-19 ED Note-Physician ED Note-Physician [...] Vitamin D deficiency Historical Accidental fall Agent [place] ASTHMA Benzodiazepine withdrawal Bipolar disorder Callus of [...] medication delivery (more content not included)... Normal [facility] Comment on above: Result Comment: Elec tronically Signed By: Malick Ho PA-C\.br\Date and Time Signed: 07/20/24 07:36 EST\.br\Electronically Co-Signed By: Johny Willson DO\.br\Date and Time Co-Signed: 07/22/24 20:57 EST ED [...] Vitamin D deficiency Historical Accidental fall Agent [place] ASTHMA Benzodiazepine withdrawal Bipolar disorder Callus of [...] medication delivery (more content not included)... Normal [facility] Comment on above: Result Comment: Elec tronically Signed By: Johny Willson DO\.br\Date and Time Signed: 07/20/24 06:07 EST ED Patient Summaryon 025 ED Patient Summary ED Patient Summary [place] [id number] Patient Discharge Instructions Person Information Name: MAEGAN DYE Age: 74 Years Arrival Date: 07/20/2024 04:44:19 Discharge Diagnosis: Acute upper abdominal pain Primary Care Physician: AZUL GORMAN CNP Provider Information Primary Provider: Johny Willson DO Advanced Supervisor Boiler Repair:Malick Ho PA-C The exam and treatment you received in the Emergency Department were for an urgent problem and are not intended as complete care. It is important that you follow up with a doctor, nurse practitioner, or physician???s bookkeeping assistant for ongoing care. If your symptoms [...] Follow-up Instructions: With: Address: When: AZUL GORMAN [address] [place] [address] Business (1) In 3 days 07/23/2024 In the event that this physician does not participate in your insurance network, please consult with your insurance company to find a nearby participating provider. Patient Education Materials: Abdominal Pain, Adult A MESSAGE TO ALL PATIENTS REGARDING OPIOIDS PRESCRIPTION OPIOIDS: WHAT YOU NEED TO KNOW Prescription opioids can be used to help relieve camsyael-bm-eegtmm pain and are often prescribed following a [...] care professi (more content not included)... Normal [facility] Extra Blueon 07-20-2024 Tube Collected Plasma Yes Invalid Interpretation Code [facility] Comment on above: Performed By: #### 1 [id number] #### [facility] [address] [place], [place] [id number] HEMATOLOGYOrdered By: SYSTEM SYSTEM on 07-20-2024 Basophils/100 [...] 07-20-2024 Albumin [Mass/Vol] 4.0 g/dL Normal 3.3-5.0 [facility] Comment on above: Performed By: #### 2 [id number] #### [facility] [address] [place] [address] Albumin/Globulin (S) [Mass conc ratio] 1.6 Normal 1.1-2.2 [facility] Comment on above: Performed By: #### 2 [id number] #### [facility] [address] [place] [address] ALP [Catalytic activity/Vol] 74 Int._Unit/L Normal 21-98 [facility] Comment on above: Performed By: #### 2 [id number] #### [facility] [address] [place] [address] ALT No additional P-5'-P [Catalytic activity/Vol] 9 Int._Unit/L Normal 6-46 [facility] Comment on above: Performed By: #### 2 [id number] #### [facility] [address] [place] [address] AST [Catalytic activity/Vol] 19 Int._Unit/L Normal 5-43 [facility] Comment on above: Performed By: #### 2 [id number] #### [facility] [address] [place] [address] Bilirubin [Mass/Vol] 0.4 mg/dL Normal 0.0-1.1 [facility] Comment on above: Performed By: #### 2 [id number] #### [facility] [address] [place] [address] Bilirubin.direct [Mass/Vol] 0.0 mg/dL Normal 0.0-0.4 [facility] Comment on above: Performed By: #### 2 [id number] #### [facility] [address] [place] [address] Bilirubin.indirect [Mass or moles/Vol] 0.4 mg/dL Normal 0.1-0.9 [facility] Comment on above: Performed By: #### 2 [id number] #### [facility] [address] [place] [address] Globulin (S) [Mass/Vol] 2.5 g/dL Normal 1.4-4.0 [facility] Comment on above: Performed By: #### 2 675642 #### [facility] [address] [place] [address] Protein [Mass/Vol] 6.5 g/dL Normal 6.0-7.8 [facility] Comment on above: Performed By: #### 2 [id number] #### [facility] [address] [place] [address] Lipase Levelon 07-20-2024 Lipase [Catalytic activity/Vol] 25 U/L Normal 13-58 [facility] Comment on above: Performed By: #### 2 [id number] #### [facility] [address] [place] [address] Provider Letteron 07-20-2024 Provider Letter Provider Letter July 20, 2024 MAEGAN DYE [address] [place] [address] : 1950 Dear Maegan, We have been trying to reach you with no success. It is important that you return our call regarding your referral from Azul Gorman to see [facility]. Please call the office to schedule a appointment upon receiving this letter. Also, at the time of your call, please provide us with your current information. Thank you for your prompt attention to this matter. Sincerely, [facility] [phone] Normal [facility] Troponin 0 Hr.on 07-20-2024 Troponin HS <2.30 Low 10.10-27.1 0 [facility] Comment on above: Result Comment: The 95% CI (Confidence Interval) PPV (Positive Predictive Value) for myocardial infarction in females is 38 pg/mL, in males 51 pg/mL. The results should be used in conjunction with clinical conditions of myocardial infarction. (Access High Sensitivity Troponin I Instructions For Use, [place], December 2017) Performed By: #### 1 [id number] #### [facility] [address] [place] [address] UA with Cult Rflxon 07-20-19 Bilirubin Ql (U) Negative Normal Negative [facility] Comment on above: Performed By: #### 4 [id number] #### [facility] [address] [place] [address] Clarity (U) Clear Normal Clear [facility] Comment on above: Performed By: #### 4 [id number] #### [facility] [address] [place] [address] Color (U) Colorless Abnormal Yellow [facility] Comment on above: Result Comment: Micr oscopic readings are only performed on those samples that meet specific criteria set forth by [facility]. Performed By: #### 4 [id number] #### [facility] [address] [place] [address] Glucose Ql (U) Negative Normal Negative [facility] Comment on above: Performed By: #### 4 [id number] #### [facility] [address] [place] [address] Hemoglobin Auto test strip (U) [Mass/Vol] Negative Normal Negative [facility] Comment on above: Performed By: #### 4 [id number] #### [facility] [address] [place] [address] Ketones Auto test strip Ql (U) Negative Normal Negative [facility] Comment on above: Performed By: #### 4 [id number] #### [facility] [address] [place] [address] Leukocyte esterase Auto test strip Ql (U) Negative Normal Negative [facility] Comment on above: Performed By: #### 4 [id number] #### [facility] [address] [place] [address] Nitrite Auto test strip Ql (U) Negative Normal Negative [facility] Comment on above: Performed By: #### 4 [id number] #### [facility] [address] [place] [address] pH (U) 7.5 [pH] Invalid Interpretation Code 5.0-9.0 [facility] Comment on above: Performed By: #### 4 [id number] #### [facility] [address] [place] [address] Protein Ql (U) Negative Normal Negative [facility] Comment on above: Performed By: #### 4 [id number] #### [facility] [address] [place] [address] Specific gravity (U) [Rel density] 1.004 Invalid Interpretation Code 1.005-1.03 0 [facility] Comment on above: Performed By: #### 4 [id number] #### [facility] [address] [place] [id number] Urobilinogen (U) [Mass/Vol] Negative Normal Negative [facility] Comment on above: Performed By: #### 4 [id number] #### [facility] [address] [place] [address] Type of Urine collection method Clean Catch Normal [facility] Comment on above: Performed By: #### 4 [id number] #### [facility] [address] [place] [id number] URINALYSISOrdered By: SYSTEM SYSTEM on 07-20-2024 Bilirubin Ql (U) Negative Normal Negativemg /dL [facility] [place] [place] UA Auto SS Clarity (U) Clear (07/20/24 5:22 AM) Normal Clear [facility] [place] UA Auto SS Color (U) Colorless 1 *ABN* (07/20/24 5:22 AM) Invalid Interpretation Code Yellow [facility] [place] UA Auto SS Comment on above: Interpretive Data: M icroscopic readings are only performed on those samples that meet specific criteria set forth by [facility]. Glucose Ql (U) Negative Normal Negativemg [...] AM) Invalid Interpretation Code 5.0 - 9.0 [facility] [place] UA Auto SS Protein Ql (U) Negative Normal Negativemg /dL [facility] [place] UA Auto SS Specific gravity (U) [Rel density] 1.004 *NA* (07/20/24 5:22 AM) Invalid Interpretation Code 1.005 - 1.030 [facility] [place] UA Auto SS Urobilinogen (U) [Mass/Vol] Negative Normal Negativemg /dL [facility] [place] UA Auto SS URINALYSISOrdered By: Johny Willson on 07-20-2024 UA Spec Desc Clean Catch (07/20/24 5:22 AM) Normal [facility] [place] UA Auto SS Work Phone: eGFRon 07-20-2024 eGFR 66 mL/min/1.73 m2 Normal >=59 [facility] Comment on above: Performed By: #### 1 [id number] #### [facility] [address] [place] [address] ED Note-Physicianon 07-13-19 ED Note-Physician ED Note-Physician Basic Information Time Seen: Onofre OG Chandan 07/12/2024 12:48 Chief Complaint pt presents with [...] and Complexity of Problems Differential Diagnosis: [] [facility] Data External documents reviewed: [] My [...] day(s), # 9 tab(s), Refills(s) 0, Pharmacy: [facility]/pharmacy #[id number], 154, cm, 07/12/24 12:55:00 EST, Height/Length Dosing, 62, kg, 07/12/24 12:55:00 EST, Weight Dosing Post Void Residual Disposition Plan Patient Discharge Condition stable Discharge Disposition to home Discharge Prescription List Prescriptions Pyridium 100 mg Tab, 100 mg= 1 tab(s), Oral, TID Follow-up With When Contact Information Albino TORRES In 3 days 07/15/2024 EST [address] [place] [address]- Business (1) Additional Instructions: AZUL LOVEAULT In 3 days 07/15/2024 EST [address] [place] [address]- Business (1) Additional Instructions: Call Dr for diagnosis based follow up Patient Education Dysuria Attestation Patient seen and evaluated by the physician bookkeeping assistant. Attending physician was present in the emergency department and supervised care. This visit was performed by both the physician and an APC. I performed all aspects of the MDM as documented. This report was transcribed using voice recognition software. Every effort was made to ensure accuracy, however, inadvertently computerized fisheries director mistakes may be present. Appropriate healthcare PPE [...] right foot (more content not included)... Normal [facility] Comment on above: Result Comment: Elec tronically Signed By: Rodrigue John PA-C\.br\Date and Time Signed: 07/12/24 15:29 EST\.br\Electronically Co-Signed By: Chandan Adhikari DO\.br\Date and Time Co-Signed: 07/13/24 07:59 EST ED Clinical Summaryon 2024 ED Clinical Summary ED Clinical Summary [address] [address] ED Clinical Summary Person Information Name: MAEGAN DYE/Raul Age: 74 Years : 1950 Sex: Female Language: Peruvian PCP: AZUL GORMAN CNP Marital Status: Visit [...] 07/12/2024 13:43:56 07/12/2024 13:43:56 07/12/2024 13:43:56 ADDRESS: [address] [facility] [id number] PHYS DOC NOTES: MEDICAL INFORMATION: Prescriptions Given: New Medications [id number], [address] [place] [id number], [phone] phenazopyridine (Pyridium 100 mg Tab) 1 Tablets [...] 5. fluticasone nasal (fluticasone 0.05 mg/inh Nasal [place]) 2 Sprays Nasal Inhalation every day. each nostril. Refills: 5. loratadine (loratadine 10 mg oral capsule) 1 Capsules By Mouth every day. [facility] Prescription (Walker) Dispense one walker. Refills: 0. [...] Dysuria Follow up: With: Address: When: Albino TORRES [address] [place], [place] [id number] [facility] () In 3 days 07/15/2024 With: Address: When: AZUL GORMAN [address] [place] [address] [facility] () In 3 days 07/15/2024 Comments: Call Dr for diagnosis based follow up DIAGNOSIS: Dysuria Normal [facility] ED Patient Summaryon 025 ED Patient Summary ED Patient Summary [place] [id number] Patient Discharge Instructions Person Information Name: MAEGAN DYE Age: 74 Years Arrival Date: 07/12/2024 12:41:51 Discharge Diagnosis: Dysuria Primary Care Physician: AZUL GORMAN CNP Provider Information Primary Provider: Chandan Adhikari DO Advanced Supervisor Boiler Repair:Alvaro PA-C, Rodrigue J. The exam and treatment you received in the Emergency Department were for an urgent problem and are not intended as complete care. It is important that you follow up with a doctor, nurse practitioner, or physician???s bookkeeping assistant for ongoing care. If your symptoms [...] Follow-up Instructions: With: Address: When: Albino TORRES [address] [place] [address] Business (1) In 3 days 07/15/2024 With: Address: When: AZUL GORMAN [facility] [place] [id number] [facility] (1) In 3 days 07/15/2024 Comments: Call [...] opioids can be used to help relieve hzpfgzgt-lt-jskiuj pain and are often prescribed following a [...] and Drug Administration (www.fda.gov/Drugs/Resourc esForYou). ??? Visit www.cdc.gov/ (more content not included)... Normal [facility] UA with Cult Rflxon 07-12-19 25 Bilirubin Ql (U) Negative Normal Negative [facility] Comment on above: Performed By: #### 4 [id number] #### [facility] [address] [place] [address] Clarity (U) Clear Normal Clear [facility] Comment on above: Performed By: #### 4 [id number] #### [facility] [address] [place] [address] Color (U) Light-Yellow Normal Yellow [facility] Comment on above: Result Comment: Micr oscopic readings are only performed on those samples that meet specific criteria set forth by [facility]. Performed By: #### 4 [id number] #### [facility] [address] [place] [address] Glucose Ql (U) Negative Normal Negative [facility] Comment on above: Performed By: #### 4 [id number] #### [facility] [address] [place] [address] Hemoglobin Auto test strip (U) [Mass/Vol] Negative Normal Negative [facility] Comment on above: Performed By: #### 4 [id number] #### [facility] [address] [place] [address] Ketones Auto test strip Ql (U) Negative Normal Negative [facility] Comment on above: Performed By: #### 4 [id number] #### [facility] [address] [place] [address] Leukocyte esterase Auto test strip Ql (U) Negative Normal Negative [facility] Comment on above: Performed By: #### 4 [id number] #### [facility] [address] [place] [address] Nitrite Auto test strip Ql (U) Negative Normal Negative [facility] Comment on above: Performed By: #### 4 [id number] #### [facility] [address] [place] [address] pH (U) 6.0 [pH] Invalid Interpretation Code 5.0-9.0 [facility] Comment on above: Performed By: #### 4 [id number] #### [facility] [address] [place] [address] Protein Ql (U) Negative Normal Negative [facility] Comment on above: Performed By: #### 4 [id number] #### [facility] [address] [place] [address] Specific gravity (U) [Rel density] 1.007 Invalid Interpretation Code 1.005-1.03 0 [facility] Comment on above: Performed By: #### 4 [id number] #### [facility] [address] [place] [id number] Urobilinogen (U) [Mass/Vol] Negative Normal Negative [facility] Comment on above: Performed By: #### 4 [id number] #### [facility] [address] [place] [id number] Type of Urine collection method Clean Catch Normal [facility] Comment on above: Performed By: #### 4 [id number] #### [facility] [address] [place] [id number] URINALYSISOrdered By: SYSTEM SYSTEM on 07-12-2024 Bilirubin Ql (U) Negative Normal Negativemg /dL [facility] [place] [place] UA Auto SS Clarity (U) Clear (07/12/24 1:02 PM) Normal Clear [facility] [place] [place] UA Auto SS Color (U) Light-Yellow 1 (07/12/24 1:02 PM) Normal Yellow [facility] UA Auto SS Comment on above: Interpretive Data: M icroscopic readings are only performed on those samples that meet specific criteria set forth by [facility]. Glucose Ql (U) Negative Normal Negativemg [...] PM) Invalid Interpretation Code 1.005 - 1.030 [facility] [place] [place] UA Auto SS Urobilinogen (U) [Mass/Vol] Negative Normal Negativemg /dL [facility] [place] UA Auto SS URINALYSISOrdered By: Chandan samson on 07-12-2024 UA Spec Desc Clean Catch (07/12/24 1:02 PM) Normal [facility] [place] [place] UA Auto SS Work Phone: Ambulatory Visit [...] Cap) fluticasone nasal (fluticasone 0.05 mg/inh Nasal [place]) loratadine (loratadine 10 mg oral capsule) olanzapine [...] fluticasone nasal (fluticasone 0.05 mg/ inh Nasal [place]) 2 Sprays Nasal Inhalation Every day each nostril Unchanged loratadine (loratadine 10 mg oral capsule) 1 Capsules By Mouth Every day Unchanged Misc Prescription (Walker) See instructions Dispense [...] nodul (more content not included)... Normal [facility] C Urineon 07-06-2024 Bacteria identified Cx Nom (U) Microbiology PROCEDURE: Urine Culture [R1] SOURCE: U CleanCatch BODY SITE: COLLECTED DATE/TIME: 07/04/2024 07:37 EST RECEIVED DATE/TIME: 07/04/2024 10:27 EST START DATE/TIME: 07/04/2024 10:27 EST FREE TEXT SOURCE: Kye Nicole DO, DO, Michael G. FINAL REPORTS Final Report [] Verified Date/Time: [...] Locations R1: This test was performed at: [facility], [address] [place] [address], [id number] , [place], [facility] Comment on above: Performed By: #### 2 [id number] #### [facility] [address] [place] [address] Reminderson 07-06-2024 Reminders Reminders From: Jihan Gregorio To: EU - Administrative; Sent: 07/06/2024 14:41:25 EST Show up: 08/24/2024 14:41:00 EDT Subject: Needs 3 mos (October 2024) Recheck Due Date/Time: 11/12/2024 14:41:00 EDT Reminder/Recall Patient needs 3 mos f/up with Luz Elena in September 2024. Normal [facility] Urology Office/Clinic Noteon 07-06-2024 Urology Office/Clinic Note Urology Office/Clinic Note Chief Complaint recurrent uti establish care HPI Staff 74 year old female new patient referral due to uti CT abdomen/pelvis w/contrast- negative [facility] [place] [place] ER most recently 07/04 due to rt. [...] tid x 7 days. PRN Pyridium 05/04/24- [facility] [place] [place] ER due to confusion-cephalexin, 500 mg x5 days 04/26/24-[facility] [place] [place] ER due to urinary retention- bladder scan residual was less than 200 cc. on keflex for uti at that time 04/28/24- [facility] [place] [place] ER due to dysuria and retention- was able to urinate at the ER and was discharged 04/21/24- [facility] [place] [place] ER due to urinary retention and uti symptoms- pvr 300cc. Cipro 250mg then switched to keflex positive culture >100,000 cfu/ml Klebsiella pneumoniae 1,000 cfu/ml Mixed skin contaminants 04/19/24- [facility] [place] ER due to urinary retention (48hrs) and constipation- urinated in ER- discharged 04/11/24- [facility] [place] ER urinary retention and diarrhea. pvr less than 30cc 20,000 cfu/ml Enterococcus faecium 2,000 cfu/ml Mixed skin contaminants 04/07/24- [facility] [place] [place] ER urinary retention/odor 03/16/24- discharged from [facility] [place] [place] after a fall- choi was placed while [...] in staff HPI. Most recent visit to [facility] [place] [place] ED on 07/04/24 - presented to ED [...] [facility] pt who he referred pt to [facility] urologist for further management of urinary retention. Today, pt is re-referred by Adrian Kinsey for recurrent UTIs. Pt states she was last seen by [facility] Urologist 3 months ago but would like to re-establish care here at [facility] [place] [place] due to our office being closer. Patient states she has been dealing with recurrent UTIs for many years. She was told by [facility] Urologist that she should CIC [...] Discussed doubl (more content not included)... Normal [facility] Comment on above: Result Comment: Elec tronically Signed By: Velia BYRD, Luz Elena\.br\Date and Time Signed: 07/06/24 19:20 EST CBC w/ Auto Diffon 5 Basophils/100 WBC (Bld) 0.5 % Normal 0.0-2.0 [facility] Comment on above: Performed By: #### 2 [id number] #### [facility] [address] [place] [address] Basophils/Leukocytes Auto (Bld) [Pure # fraction] 0.0 E9/L Normal 0.0-0.2 [facility] Comment on above: Performed By: #### 2 [id number] #### [facility] [address] [place] [address] Eosinophils (Bld) [#/Vol] 0.1 E9/L Normal 0.0-0.5 [facility] Comment on above: Performed By: #### 2 [id number] #### [facility] [address] [place] [address] Eosinophils/100 WBC (Bld) 2.0 % Normal 0.0-8.0 [facility] Comment on above: Performed By: #### 2 [id number] #### [facility] [address] [place] [address] Erythrocyte distribution width (RBC) [Ratio] 13.7 % Normal 10.9-14.2 [facility] Comment on above: Performed By: #### 2 [id number] #### [facility] [address] [place] [address] Hematocrit (Bld) [Volume fraction] 45.0 % Normal 34.0-46.0 [facility] Comment on above: Performed By: #### 2 [id number] #### [facility] [address] [place] [address] Hemoglobin (Bld) [Mass/Vol] 14.9 g/dL Normal 12.0-16.0 [facility] Comment on above: Performed By: #### 2 [id number] #### [facility] [address] [place] [address] Lymphocytes (Bld) [#/Vol] 1.6 E9/L Normal 1.0-4.0 [facility] Comment on above: Performed By: #### 2 [id number] #### [facility] [address] [place] [address] Lymphocytes/100 WBC (Bld) 23.2 % Normal 14.0-50.0 [facility] Comment on above: Performed By: #### 2 [id number] #### [facility] [address] [place] [address] MCH (RBC) [Entitic mass] 29.3 pg Normal 27.0-34.0 [facility] Comment on above: Performed By: #### 2 [id number] #### [facility] [address] [place] [address] MCHC (RBC) [Mass/Vol] 33.1 g/dL Normal 31.4-36.0 [facility] Comment on above: Performed By: #### 2 [id number] #### [facility] [address] [place] [address] MCV (RBC) [Entitic vol] 88.5 fL Normal 80.0-100.0 [facility] Comment on above: Performed By: #### 2 [id number] #### [facility] [address] [place] [address] Monocytes (Bld) [#/Vol] 0.6 E9/L Normal 0.2-1.0 [facility] Comment on above: Performed By: #### 2 [id number] #### [facility] [address] [place] [address] Neutrophils (Bld) [#/Vol] 4.4 E9/L Normal 2.0-7.5 [facility] Comment on above: Performed By: #### 2 [id number] #### [facility] [address] [place] [address] Neutrophils/100 WBC (Bld) 66.0 % Normal 36.0-75.0 [facility] Comment on above: Performed By: #### 2 [id number] #### [facility] [address] [place] [address] Platelet mean volume (Bld) [Entitic vol] 7.3 fL Normal 6.4-10.8 [facility] Comment on above: Performed By: #### 2 [id number] #### [facility] [address] [place] [address] Platelets (Bld) [#/Vol] 230.0 E9/L Normal 150.0-500. 0 [facility] Comment on above: Performed By: #### 2 [id number] #### [facility] [address] [place] [address] RBC (Bld) [#/Vol] 5.1 E12/L Normal 4.3-5.9 [facility] Comment on above: Performed By: #### 2 [id number] #### [facility] [address] [place] [address] WBC corrected for nucl RBC Auto (Bld) [#/Vol] 6.7 E9/L Normal 4.0-11.0 [facility] Comment on above: Performed By: #### 2 [id number] #### [facility] [address] [place] [address] CHEMISTRYOrdered By: SYSTEM SYSTEM on 07-04-2024 Albumin [...] 07-04-2024 Albumin [Mass/Vol] 4.4 g/dL Normal 3.3-5.0 [facility] Comment on above: Performed By: #### 2 [id number] #### [facility] [address] [place] [address] Albumin/Globulin (S) [Mass conc ratio] 1.6 Normal 1.1-2.2 [facility] Comment on above: Performed By: #### 2 [id number] #### [facility] [address] [place] [address] ALP [Catalytic activity/Vol] 88 Int._Unit/L Normal 21-98 [facility] Comment on above: Performed By: #### 2 [id number] #### [facility] [address] [place] [address] ALT No additional P-5'-P [Catalytic activity/Vol] 9 Int._Unit/L Normal 6-46 [facility] Comment on above: Performed By: #### 2 [id number] #### [facility] [address] [place] [address] Anion gap [Moles/Vol] 11 mmol/L Normal 6-16 [facility] Comment on above: Performed By: #### 2 [id number] #### [facility] [address] [place] [address] AST [Catalytic activity/Vol] 15 Int._Unit/L Normal 5-43 [facility] Comment on above: Performed By: #### 2 [id number] #### [facility] [address] [place] [address] Bilirubin [Mass/Vol] 0.8 mg/dL Normal 0.0-1.1 [facility] Comment on above: Performed By: #### 2 [id number] #### [facility] [address] [place] [address] Calcium [Mass/Vol] 9.9 mg/dL Normal 8.9-11.1 [facility] Comment on above: Performed By: #### 2 500398 #### [facility] [address] [place] [address] Chloride [Moles/Vol] 98 mmol/L Low 101-111 [facility] Comment on above: Performed By: #### 2 [id number] #### [facility] [address] [place] [address] CO2 [Moles/Vol] 28 mmol/L Normal 21-31 [facility] Comment on above: Performed By: #### 2 [id number] #### [facility] [address] [place] [address] Creatinine [Mass/Vol] 0.9 mg/dL Normal 0.5-1.3 [facility] Comment on above: Performed By: #### 2 [id number] #### [facility] [address] [place] [address] Globulin (S) [Mass/Vol] 2.7 g/dL Normal 1.4-4.0 [facility] Comment on above: Performed By: #### 2 [id number] #### [facility] [address] [place] [address] Glucose [Mass/Vol] 114 mg/dL Normal 55-199 [facility] Comment on above: Performed By: #### 2 850320 #### [facility] [address] [place] [address] Potassium [Moles/Vol] 3.9 mmol/L Normal 3.5-5.3 [facility] Comment on above: Performed By: #### 2 [id number] #### [facility] [address] [place] [address] Protein [Mass/Vol] 7.1 g/dL Normal 6.0-7.8 [facility] Comment on above: Performed By: #### 2 507951 #### [facility] [address] [place] [address] Sodium [Moles/Vol] 133 mmol/L Low 135-145 [facility] Comment on above: Performed By: #### 2 [id number] #### [facility] [address] [place] [address] Urea nitrogen [Mass/Vol] 11 mg/dL Normal 5-21 [facility] Comment on above: Performed By: #### 2 874454 #### [facility] [address] [place] [address] Urea nitrogen/Creatinine [Mass ratio] 12 No Units Normal 10-20 [facility] Comment on above: Performed By: #### 2 [id number] #### [facility] [address] [place] [address] CT Abdomen/Pelvis w/ Contras ton 07-04-2024 CT [...] MD Transcribed by: GLORIA Technologist: VALERI Aranda [facility] ED Clinical Summaryon 2024 ED Clinical Summary ED Clinical Summary [place] [address] ED Clinical Summary Person Information Name: MAEGAN DYE/[facility] Age: 74 Years : 1950 Sex: Female Language: Peruvian PCP: AZUL GORMAN CNP Marital Status: Visit [...] ADDRESS: [address] [facility] [id number] PHYS DOC NOTES: MEDICAL INFORMATION: Prescriptions Given: Medications to Continue Taking That Have Changed [facility]/pharmacy #[id number], [address] [place], [place] [id number], [phone] START: sulfamethoxazole-trimethop rim (Bactrim D.S. 800 mg-160 [...] 5. fluticasone nasal (fluticasone 0.05 mg/inh Nasal [place]) 2 Sprays Nasal Inhalation every day. each nostril. Refills: 5. loratadine (loratadine 10 mg oral capsule) 1 Capsules By Mouth every day. [facility] Prescription (Walker) Dispense one walker. Refills: 0. [...] Follow up: With: Address: When: AZUL Cortez [facility] [place] [address] [facility] (1[place]op In 3 days 07/07/2024 Comments: Please follow-up with your primary provider in the coming days for repeat evaluation take the antibiotics as directed alternate Tylenol Motrin as needed for mild to moderate pain should you been exp (more content not included)... Normal [facility] ED Note-Physicianon 07-04-19 ED Note-Physician ED Note-Physician Basic Information Time Seen: Kye Nicole DO 07/04/2024 07:13 Chief Complaint (R) [...] Stop date (more content not included)... Normal [facility] Comment on above: Result Comment: Elec tronically Signed By: Kye Nicole DO\.br\Date and Time Signed: 07/04/24 09:47 EST ED Patient Summaryon 025 ED Patient Summary ED Patient Summary [address] [address] Patient Discharge Instructions Person Information Name: MAEGAN DYE Age: 74 Years Arrival Date: 07/04/2024 06:53:34 Discharge Diagnosis: Suprapubic pain; UTI symptoms Primary Care Physician: AZUL GORMAN CNP Provider Information Primary Provider: Kye Nicole DO Advanced Supervisor Boiler Repair:None The exam and treatment you received in the Emergency Department were for an urgent problem and are not intended as complete care. It is important that you follow up with a doctor, nurse practitioner, or physician???s bookkeeping assistant for ongoing care. If your symptoms [...] Follow-up Instructions: With: Address: When: AZUL GORMAN [address] [place] [address] [place] [address] Business (1) In 3 days 07/07/2024 Comments: Please [...] opioids can be used to help relieve weivdynd-st-kmvryn pain and are often prescribed following a [...] drug oral (more content not included)... Normal [facility] HEMATOLOGYOrdered By: SYSTEM SYSTEM on 07-04-2024 Basophils/100 [...] Lipase [Catalytic activity/Vol] 18 U/L Normal 13-58 [facility] Comment on above: Performed By: #### 2 [id number] #### [facility] [address] [place] [address] UA with Cult Rflxon 07-04-19 25 Bacteria Auto Ql (U) 1+ /HPF Abnormal Trace Fish er [facility] Comment on above: Performed By: #### 4 [id number] #### [facility] [address] [place] [address] Bilirubin Ql (U) Negative Normal Negative [facility] Comment on above: Performed By: #### 4 [id number] #### [facility] [address] [place] [address] Clarity (U) Clear Normal Clear [facility] Comment on above: Performed By: #### 4 [id number] #### [facility] [address] [place] [address] Color (U) Colorless Abnormal Yellow [facility] Comment on above: Result Comment: Micr oscopic readings are only performed on those samples that meet specific criteria set forth by [facility]. Performed By: #### 4 [id number] #### [facility] [address] [place] [address] Epithelial cells.squamous Auto (Urine sed) [#/Area] 0-2 Invalid Interpretation Code [facility] Comment on above: Performed By: #### 4 [id number] #### [facility] [address] [place] [address] Glucose Ql (U) Negative Normal Negative [facility] Comment on above: Performed By: #### 4 [id number] #### [facility] [address] [place] [address] Hemoglobin Auto test strip (U) [Mass/Vol] Negative Normal Negative [facility] Comment on above: Performed By: #### 4 [id number] #### [facility] [address] [place] [address] Ketones Auto test strip Ql (U) Negative Normal Negative [facility] Comment on above: Performed By: #### 4 [id number] #### [facility] [address] [place] [address] Leukocyte esterase Auto test strip Ql (U) 250 Gretchen/uL Abnormal Negative [facility] Comment on above: Performed By: #### 4 [id number] #### [facility] [address] [place] [address] Mucus Auto Ql (U) Negative Normal Negative [facility] Comment on above: Performed By: #### 4 [id number] #### [facility] [address] [place] [address] Nitrite Auto test strip Ql (U) Negative Normal Negative [facility] Comment on above: Performed By: #### 4 [id number] #### [facility] [address] [place] [address] pH (U) 6.0 [pH] Invalid Interpretation Code 5.0-9.0 [facility] Comment on above: Performed By: #### 4 [id number] #### [facility] [address] [place] [address] Protein Ql (U) Negative Normal Negative [facility] Comment on above: Performed By: #### 4 [id number] #### [facility] [address] [place] [address] Specific gravity (U) [Rel density] 1.004 Invalid Interpretation Code 1.005-1.03 0 [facility] Comment on above: Performed By: #### 4 [id number] #### [facility] [address] [place] [address] Urobilinogen (U) [Mass/Vol] Negative Normal Negative [facility] Comment on above: Performed By: #### 4 [id number] #### [facility] [address] [place] [address] WBC Auto (Urine sed) [#/Area] 26-30 Abnormal 0-5 [facility] Comment on above: Performed By: #### 4 [id number] #### [facility] [address] [place] [address] Type of Urine collection method Clean Catch Normal [facility] Comment on above: Performed By: #### 4 [id number] #### [facility] [address] [place] [address] URINALYSISOrdered By: SYSTEM SYSTEM on 07-04-2024 Bacteria Auto Ql (U) 1+ /HPF Invalid Interpretation Code Trace/HPF [facility] UA Auto SS Bilirubin Ql (U) Negative Normal Negativemg /dL [facility] UA Auto SS Clarity (U) Clear (07/04/24 7:37 AM) Normal Clear [facility] UA Auto SS Color (U) Colorless 1 *ABN* (07/04/24 7:37 AM) Invalid Interpretation Code Yellow [facility] UA Auto SS Comment on above: Interpretive Data: M icroscopic readings are only performed on those samples that meet specific criteria set forth by [facility]. Epithelial cells.squamous Auto (Urine sed) [#/Area] [...] 26-30 graded/HPF Invalid Interpretation Code 0-5graded/ HPF [facility] UA Auto SS URINALYSISOrdered By: Fuda Nicole on 07-04-2024 UA Spec Desc Clean Catch (07/04/24 7:37 AM) Normal [facility] [place] UA Auto SS Work Phone: eGFRon 07-04-2024 eGFR 66 mL/min/1.73 m2 Normal >=59 [facility] Comment on above: Performed By: #### 1 [id number] #### [facility] [address] [place] [address] 312[address] C Urineon 06-22-2024 Bacteria identified Cx Nom [...] Locations R1: This test was performed at: [facility], [address] [place] [address], [address]- , [place], Normal [facility] Comment on above: Performed By: #### 2 [id number] #### [facility] [address] [place] [address] BMPon 06-20-2024 Anion gap [Moles/Vol] 11 mmol/L Normal 6-16 [facility] Comment on above: Performed By: #### 2 [id number] #### [facility] [address] [place] [address] Calcium [Mass/Vol] 9.4 mg/dL Normal 8.9-11.1 [facility] Comment on above: Performed By: #### 2 [id number] #### [facility] [address] [place] [address] Chloride [Moles/Vol] 98 mmol/L Low 101-111 [facility] Comment on above: Performed By: #### 2 [id number] #### [facility] [address] [place] [address] CO2 [Moles/Vol] 30 mmol/L Normal 21-31 [facility] Comment on above: Performed By: #### 2 [id number] #### [facility] [address] [place] [address] Creatinine [Mass/Vol] 1.0 mg/dL Normal 0.5-1.3 [facility] Comment on above: Performed By: #### 2 [id number] #### [facility] [address] [place] [address] Glucose [Mass/Vol] 115 mg/dL Normal 55-199 [facility] Comment on above: Performed By: #### 2 [id number] #### [facility] [address] [place] [address] Potassium [Moles/Vol] 3.6 mmol/L Normal 3.5-5.3 [facility] Comment on above: Performed By: #### 2 [id number] #### [facility] [address] [place] [address] Sodium [Moles/Vol] 135 mmol/L Normal 135-145 [facility] Comment on above: Performed By: #### 2 [id number] #### [facility] [address] [place] [address] Urea nitrogen [Mass/Vol] 12 mg/dL Normal 5-21 [facility] Comment on above: Performed By: #### 2 [id number] #### [facility] [address] [place] [address] Urea nitrogen/Creatinine [Mass ratio] 12 No Units Normal 10-20 [facility] Comment on above: Performed By: #### 2 [id number] #### [facility] [address] [place] [address] CBC w/ Auto Diffon 5 Basophils/100 WBC (Bld) 1.1 % Normal 0.0-2.0 [facility] Comment on above: Performed By: #### 2 [id number] #### [facility] [address] [place] [address] Basophils/Leukocytes Auto (Bld) [Pure # fraction] 0.1 E9/L Normal 0.0-0.2 [facility] Comment on above: Performed By: #### 2 [id number] #### [facility] [address] [place] [address] Eosinophils (Bld) [#/Vol] 0.1 E9/L Normal 0.0-0.5 [facility] Comment on above: Performed By: #### 2 [id number] #### [facility] [address] [place] [address] Eosinophils/100 WBC (Bld) 0.7 % Normal 0.0-8.0 [facility] Comment on above: Performed By: #### 2 [id number] #### [facility] [address] [place] [address] Erythrocyte distribution width (RBC) [Ratio] 13.7 % Normal 10.9-14.2 [facility] Comment on above: Performed By: #### 2 [id number] #### [facility] [address] [place] [address] Hematocrit (Bld) [Volume fraction] 41.8 % Normal 34.0-46.0 [facility] Comment on above: Performed By: #### 2 [id number] #### [facility] [address] [place] [address] Hemoglobin (Bld) [Mass/Vol] 14.0 g/dL Normal 12.0-16.0 [facility] Comment on above: Performed By: #### 2 [id number] #### [facility] [address] [place] [address] Lymphocytes (Bld) [#/Vol] 1.9 E9/L Normal 1.0-4.0 [facility] Comment on above: Performed By: #### 2 907330 #### [facility] [address] [place] [address] Lymphocytes/100 WBC (Bld) 22.3 % Normal 14.0-50.0 [facility] Comment on above: Performed By: #### 2 [id number] #### [facility] [address] [place] [address] MCH (RBC) [Entitic mass] 29.0 pg Normal 27.0-34.0 [facility] Comment on above: Performed By: #### 2 [id number] #### [facility] [address] [place] [address] MCHC (RBC) [Mass/Vol] 33.4 g/dL Normal 31.4-36.0 [facility] Comment on above: Performed By: #### 2 [id number] #### [facility] [address] [place] [address] MCV (RBC) [Entitic vol] 87.0 fL Normal 80.0-100.0 [facility] Comment on above: Performed By: #### 2 [id number] #### [facility] [address] [place] [address] Monocytes (Bld) [#/Vol] 0.7 E9/L Normal 0.2-1.0 [facility] Comment on above: Performed By: #### 2 146939 #### [facility] [address] [place] [address] Neutrophils (Bld) [#/Vol] 5.8 E9/L Normal 2.0-7.5 [facility] Comment on above: Performed By: #### 2 [id number] #### [facility] [address] [place] [address] Neutrophils/100 WBC (Bld) 67.7 % Normal 36.0-75.0 [facility] Comment on above: Performed By: #### 2 [id number] #### [facility] [address] [place] [address] Platelet mean volume (Bld) [Entitic vol] 7.3 fL Normal 6.4-10.8 [facility] Comment on above: Performed By: #### 2 010456 #### [facility] [address] [place] [address] Platelets (Bld) [#/Vol] 264.0 E9/L Normal 150.0-500. 0 [facility] Comment on above: Performed By: #### 2 [id number] #### [facility] [address] [place] [address] RBC (Bld) [#/Vol] 4.8 E12/L Normal 4.3-5.9 [facility] Comment on above: Performed By: #### 2 [id number] #### [facility] [address] [place] [address] WBC corrected for nucl RBC Auto (Bld) [#/Vol] 8.6 E9/L Normal 4.0-11.0 [facility] Comment on above: Performed By: #### 2 [id number] #### [facility] [address] [place] [address] CHEMISTRYOrdered By: SYSTEM SYSTEM on 06-20-2024 Anion [...] 2024 ED Clinical Summary ED Clinical Summary [address] [address] ED Clinical Summary Person Information [facility]: [facility] Age[facility] 74 Years : 1950 Sex: Female Language: Peruvian PCP: AZUL GORMAN CNP Marital Status: Visit [...] 06/20/2024 14:49:52 06/20/2024 14:49:52 06/20/2024 14:49:52 ADDRESS: [facility] [address] [facility] [id number] PHYS DOC NOTES: MEDICAL INFORMATION: Prescriptions Given: [...] 5. fluticasone nasal (fluticasone 0.05 mg/inh Nasal [place]) 2 Sprays Nasal Inhalation every day. each nostril. Refills: 5. loratadine (loratadine 10 mg oral capsule) 1 Capsules By Mouth every day. [facility] Prescription (Walker) Dispense one walker. Refills: 0. [...] Screening Exam Follow up: With: Address: When: [place] [address] [facility] (1) In 3 days 06/23/2024 Comments: Call [...] follow-up aft (more content not included)... Normal [facility] ED Note-Physicianon 06-20-19 ED Note-Physician ED Note-Physician [...] GORMAN In 3 days 06/23/2024 EST [address] [place] [address]- Business (1) Additional Instructions: Call the office [...] Vitamin D deficiency Historical Accidental fall Agent [place] ASTHMA Benzodiazepine withdrawal Bipolar disorder Callus of [...] hyponatremia Hyp (more content not included)... Normal [facility] Comment on above: Result Comment: Elec tronically Signed By: Johny Willson DO\.br\Date and Time Signed: 06/20/24 15:39 EST ED Patient Summaryon 025 ED Patient Summary ED Patient Summary [address] [address] Patient Discharge Instructions Person Information Name: MAEGAN DYE Age: 74 Years Arrival Date: 06/20/2024 11:46:11 Discharge Diagnosis: Dysuria Primary Care Physician: AZUL GORMAN CNP Provider Information Primary Provider: Johny Willson DO Advanced Supervisor Boiler Repair:None The exam and treatment you received in the Emergency Department were for an urgent problem and are not intended as complete care. It is important that you follow up with a doctor, nurse practitioner, or physician???s bookkeeping assistant for ongoing care. If your symptoms [...] Follow-up Instructions: With: Address: When: AZUL GORMAN [address] [place] [address] [place] [address] Business (1) In 3 days 06/23/2024 Comments: [...] opioids can be used to help relieve [id number] pain and are often prescribed following a [...] ??? Stor (more content not included)... Normal [facility] Extra Blueon 06-20-2024 Tube Collected Plasma Yes Invalid Interpretation Code [facility] Comment on above: Performed By: #### 1 [id number] #### [facility] [address] [place] [address] HEMATOLOGYOrdered By: SYSTEM SYSTEM on 06-20-2024 Basophils/100 [...] Remisol Heme UA with Cult Rflxon 06-20-19 Bacteria Auto Ql (U) Trace Normal Trace Fish [facility] Comment on above: Performed By: #### 4 [id number] #### [facility] [address] [place] [address] Bilirubin Ql (U) Negative Normal Negative [facility] Comment on above: Performed By: #### 4 [id number] #### [facility] [address] [place] [address] Clarity (U) Clear Normal Clear [facility] Comment on above: Performed By: #### 4 [id number] #### [facility] [address] [place] [address] Color (U) Colorless Abnormal Yellow [facility] Comment on above: Result Comment: Micr oscopic readings are only performed on those samples that meet specific criteria set forth by [facility]. Performed By: #### 4 [id number] #### [facility] [address] [place] [address] Epithelial cells.squamous Auto (Urine sed) [#/Area] 0-2 Invalid Interpretation Code [facility] Comment on above: Performed By: #### 4 [id number] #### [facility] [address] [place] [address] Glucose Ql (U) Negative Normal Negative [facility] Comment on above: Performed By: #### 4 [id number] #### [facility] [address] [place] [address] Hemoglobin Auto test strip (U) [Mass/Vol] Negative Normal Negative [facility] Comment on above: Performed By: #### 4 [id number] #### [facility] [address] [place] [address] Ketones Auto test strip Ql (U) Negative Normal Negative [facility] Comment on above: Performed By: #### 4 [id number] #### [facility] [address] [place] [address] Leukocyte esterase Auto test strip Ql (U) 75 Gretchen/uL Abnormal Negative [facility] Comment on above: Performed By: #### 4 [id number] #### [facility] [address] [place] [address] Mucus Auto Ql (U) Negative Normal Negative [facility] Comment on above: Performed By: #### 4 [id number] #### [facility] [address] [place] [address] Nitrite Auto test strip Ql (U) Negative Normal Negative [facility] Comment on above: Performed By: #### 4 [id number] #### [facility] [address] [place] [address] pH (U) 7.0 [pH] Invalid Interpretation Code 5.0-9.0 [facility] Comment on above: Performed By: #### 4 [id number] #### [facility] [address] [place] [address] Protein Ql (U) Negative Normal Negative [facility] Comment on above: Performed By: #### 4 [id number] #### [facility] [address] [place] [address] Specific gravity (U) [Rel density] 1.006 Invalid Interpretation Code 1.005-1.03 0 [facility] Comment on above: Performed By: #### 4 [id number] #### [facility] [address] [place] [address] Urobilinogen (U) [Mass/Vol] Negative Normal Negative [facility] Comment on above: Performed By: #### 4 [id number] #### [facility] [address] [place] [address] WBC Auto (Urine sed) [#/Area] 0-5 Normal 0-5 [facility] Comment on above: Performed By: #### 4 [id number] #### [facility] [address] [place] [address] Type of Urine collection method Clean Catch Normal [facility] Comment on above: Performed By: #### 4 [id number] #### [facility] [address] [place] [address] URINALYSISOrdered By: SYSTEM SYSTEM on 06-20-2024 Bacteria Auto Ql (U) Trace /HPF Normal Trace/HPF [facility] Auto SS Bilirubin Ql (U) Negative Normal Negativemg /dL [facility]A Auto SS Clarity (U) Clear (06/20/24 1:29 PM) Normal Clear [facility] UA Auto SS Color (U) Colorless 1 *ABN* (06/20/24 1:29 PM) Invalid Interpretation Code Yellow [facility] UA Auto SS Comment on above: Interpretive Data: M icroscopic readings are only performed on those samples that meet specific criteria set forth by [facility]. Epithelial cells.squamous Auto (Urine sed) [#/Area] [...] PM) Invalid Interpretation Code 5.0 - 9.0 [facility] [place] UA Auto SS Protein Ql (U) Negative Normal Negativemg /dL [facility] [place] UA Auto SS Specific gravity (U) [Rel density] 1.006 *NA* (06/20/24 1:29 PM) Invalid Interpretation Code 1.005 - 1.030 [facility] [place] UA Auto SS Urobilinogen (U) [Mass/Vol] Negative Normal Negativemg /dL [facility] [place] [place] UA Auto SS WBC Auto (Urine sed) [#/Area] 0-5 graded/HPF Normal 0-5graded/ HPF [facility] Auto SS URINALYSISOrdered By: Johny Willson on 06-20-2024 UA Spec Desc Clean Catch (06/20/24 1:29 PM) Normal [facility] [place] [place] UA Auto SS Work Phone: eGFRon 06-20-2024 eGFR 58 mL/min/1.73 m2 Low >=59 [facility] Comment on above: Performed By: #### 1 [id number] #### [facility] [address] [place] [address] C Urineon 06-19-2024 Bacteria identified Cx Nom [...] Locations R1: This test was performed at: [facility], [address] [place] [address], [address] , , [facility] Comment on above: Performed By: #### 2 [id number] #### [facility] [address] [place] [address] Family Medicine Office/Clini c Noteon 06-18-2024 Family [...] with voice recognition software. Occasional wrong-word or ???phesu-w-ynbt??? substitutions may have occurred due to the [...] someone in [facility] son states that is in [place] previously saw Dr. Grimm urology send states [...] want to see him see somebody in [place] but does not really want to go [...] PRN pyridi (more content not included)... Normal [facility] Comment on above: Result Comment: Elec tronically [...] or concerns Ensure (Ensure Vanilla) Misc Prescription (Segundo) amlodipine (amLODIPine 5 mg Tab) celecoxib (celecoxib 200 mg Cap) clonazepam (clonazepam 1 mg Tab) docusate (Colace 100 mg Cap) docusate (Colace 100 mg Cap) fluticasone nasal (fluticasone 0.05 mg/inh Nasal [place]) loratadine (loratadine 10 mg oral capsule) olanzapine [...] Up with AZUL GORMAN CNP When: Where: [address], [place] [address]- Medications What How Much When Why Instructions New cephalexin (Keflex 500 mg Cap) 1 Capsules By Mouth Every 8 hours UTI (urinary tract infection) Duration: 7 Days Pickup at [facility]/pharmacy #6173 New phenazopyridine (Pyridium 100 mg Tab) 1 Tablets By Mouth 3 times a day UTI (urinary tract infection) Duration: 3 Days Pickup at [facility]/pharmacy #6173 Unchanged amlodipine (amLODIPine 5 mg Tab) [...] fluticasone nasal (fluticasone 0.05 mg/ inh Nasal [place]) 2 Sprays Nasal Inhalation Every day each [...] Contact pr (more content not included)... Normal [facility] BMPon 05-16-2024 Anion gap [Moles/Vol] 9 mmol/L Normal 6-16 [facility] Comment on above: Performed By: #### 2 [id number] #### [facility] [address] [place] [address] Calcium [Mass/Vol] 9.2 mg/dL Normal 8.9-11.1 [facility] Comment on above: Performed By: #### 2 [id number] #### [facility] [address] [place] [address] Chloride [Moles/Vol] 99 mmol/L Low 101-111 [facility] Comment on above: Performed By: #### 2 [id number] #### [facility] [address] [place] [address] CO2 [Moles/Vol] 32 mmol/L High 21-31 [facility] Comment on above: Performed By: #### 2 [id number] #### [facility] [address] [place] [address] Creatinine [Mass/Vol] 1.0 mg/dL Normal 0.5-1.3 [facility] Comment on above: Performed By: #### 2 [id number] #### [facility] [address] [place] [address] Glucose [Mass/Vol] 110 mg/dL Normal 55-199 [facility] Comment on above: Performed By: #### 2 [id number] #### [facility] [address] [place] [address] Potassium [Moles/Vol] 3.4 mmol/L Low 3.5-5.3 [facility] Comment on above: Performed By: #### 2 [id number] #### [facility] [address] [place] [address] Sodium [Moles/Vol] 137 mmol/L Normal 135-145 [facility] Comment on above: Performed By: #### 2 [id number] #### [facility] [address] [place] [address] Urea nitrogen [Mass/Vol] 7 mg/dL Normal 5-21 [facility] Comment on above: Performed By: #### 2 [id number] #### [facility] [address] [place] [address] Urea nitrogen/Creatinine [Mass ratio] 7 No Units Low 10-20 [facility] Comment on above: Performed By: #### 2 [id number] #### [facility] [address] [place] [address] CBC w/ Auto Diffon 4 Basophils/100 WBC (Bld) 0.7 % Normal 0.0-2.0 [facility] Comment on above: Performed By: #### 2 [id number] #### [facility] [address] [place] [address] Basophils/Leukocytes Auto (Bld) [Pure # fraction] 0.0 E9/L Normal 0.0-0.2 [facility] Comment on above: Performed By: #### 2 [id number] #### [facility] [address] [place] [address] Eosinophils (Bld) [#/Vol] 0.1 E9/L Normal 0.0-0.5 [facility] Comment on above: Performed By: #### 2 [id number] #### [facility] [address] [place] [address] Eosinophils/100 WBC (Bld) 3.0 % Normal 0.0-8.0 [facility] Comment on above: Performed By: #### 2 [id number] #### [facility] [address] [place] [address] Erythrocyte distribution width (RBC) [Ratio] 14.0 % Normal 10.9-14.2 [facility] Comment on above: Performed By: #### 2 [id number] #### [facility] [address] [place] [address] Hematocrit (Bld) [Volume fraction] 41.6 % Normal 34.0-46.0 [facility] Comment on above: Performed By: #### 2 [id number] #### [facility] [address] [place] [address] Hemoglobin (Bld) [Mass/Vol] 13.8 g/dL Normal 12.0-16.0 [facility] Comment on above: Performed By: #### 2 [id number] #### [facility] [address] [place] [address] Lymphocytes (Bld) [#/Vol] 1.2 E9/L Normal 1.0-4.0 [facility] Comment on above: Performed By: #### 2 [id number] #### [facility] [address] [place] [address] Lymphocytes/100 WBC (Bld) 23.9 % Normal 14.0-50.0 [facility] Comment on above: Performed By: #### 2 [id number] #### [facility] [address] [place] [address] MCH (RBC) [Entitic mass] 29.1 pg Normal 27.0-34.0 [facility] Comment on above: Performed By: #### 2 [id number] #### [facility] [address] [place] [address] MCHC (RBC) [Mass/Vol] 33.1 g/dL Normal 31.4-36.0 [facility] Comment on above: Performed By: #### 2 [id number] #### [facility] [address] [place] [address] MCV (RBC) [Entitic vol] 88.1 fL Normal 80.0-100.0 [facility] Comment on above: Performed By: #### 2 [id number] #### [facility] [address] [place] [address] Monocytes (Bld) [#/Vol] 0.5 E9/L Normal 0.2-1.0 [facility] Comment on above: Performed By: #### 2 [id number] #### [facility] [address] [place] [address] Neutrophils (Bld) [#/Vol] 3.1 E9/L Normal 2.0-7.5 [facility] Comment on above: Performed By: #### 2 [id number] #### [facility] [address] [place] [address] Neutrophils/100 WBC (Bld) 61.6 % Normal 36.0-75.0 [facility] Comment on above: Performed By: #### 2 [id number] #### [facility] [address] [place] [address] Platelet mean volume (Bld) [Entitic vol] 7.1 fL Normal 6.4-10.8 [facility] Comment on above: Performed By: #### 2 [id number] #### [facility] [address] [place] [address] Platelets (Bld) [#/Vol] 238.0 E9/L Normal 150.0-500. 0 [facility] Comment on above: Performed By: #### 2 [id number] #### [facility] [address] [place] [address] RBC (Bld) [#/Vol] 4.7 E12/L Normal 4.3-5.9 [facility] Comment on above: Performed By: #### 2 [id number] #### [facility] [address] [place] [address] WBC corrected for nucl RBC Auto (Bld) [#/Vol] 5.0 E9/L Normal 4.0-11.0 [facility] Comment on above: Performed By: #### 2 [id number] #### [facility] [address] [place] [address] CHEMISTRYOrdered By: SYSTEM SYSTEM on 05-16-2024 Albumin [...] Oral contrast amount in ml's: 0 Normal [facility] ED Clinical Summaryon 2023 ED Clinical Summary ED Clinical Summary [place] [address] ED Clinical Summary Person Information Name: MAEGAN DYE/[facility] Age: 74 Years : 1950 Sex: Female Language: Peruvian PCP: DORITA TRAMMELL Marital Status: Visit Id: [...] 05/16/2024 16:00:11 05/16/2024 16:00:11 05/16/2024 16:00:11 ADDRESS: [address] [place] [address] [address] [facility] [id number] PHYS DOC NOTES: MEDICAL INFORMATION: Prescriptions Given: New Medications [facility]/pharmacy #[id number], [address], [place] [id number], [phone] dicyclomine (Bentyl 10 mg Cap) 1 Capsules By Mouth 4 times a day for 7 Days. Refills: 0. Medications to Continue Taking That Have Changed [facility]/pharmacy #[id number], [address], [place] [id number], [phone] START: docusate (Colace 100 mg Cap) 1 [...] Continue with No Changes Other Medications acetaminophen-hydrocodone ([place]wood 325 mg-5 mg oral tablet) 1 Tablets [...] day. fluticasone nasal (fluticasone 0.05 mg/inh Nasal [place]) 2 Sprays Nasal Inhalation every day. each nostril. Refills: 5. loratadine (loratadine 10 mg oral capsule) 1 Capsules By Mouth every day. [facility] Prescription (Walker) Dispense one walker. Refills: 0. olanzapine (olanzapine 7.5 mg oral tablet) 1 Tablets By Mouth once a day (at bedtime). pantoprazole (Pantoprazole [address] Tab) TAKE 1 TABLET BY MOUTH EVERY DAY. phenazopyridine (phenazopyridine 200 mg Tab) 1 Tablets By Mouth after meals. potassium chloride (potassium chloride 10 mEq (more content not included)... Normal [facility] ED Note-Physicianon 05-16-20 ED Note-Physician ED Note-Physician Basic Information Time Seen: Jose Daniel PA-C 05/16/2024 12:54 Chief Complaint c/o abdominal pain, [...] Nausea/Vomiting, # 12 tab(s), Refills(s) 0, Pharmacy: [facility]/pharmacy #[id number], 154, cm, 05/16/24 12:57:00 EST, Height/Length [...] days 05/19/2024 (more content not included)... Normal [facility] Comment on above: Result Comment: Elec tronically Signed By: Jose Daniel PA-C\.br\Date and Time Signed: 05/16/24 15:58 EST\.br\Electronically Co-Signed By: Didier Hooks M.D.\.br\Date and Time Co-Signed: 05/16/24 19:01 EST ED Patient Summaryon 024 ED Patient Summary ED Patient Summary [address] [address] Patient Discharge Instructions Person Information Name: MAEGAN DYE Age: 74 Years Arrival Date: 05/16/2024 12:47:39 Discharge Diagnosis: Abdominal pain; Constipation; Nausea & vomiting; Shortness of breath Primary Care Physician: DORITA TRAMMELL Provider Information Primary Provider: Didier Hooks M.D. Advanced Supervisor Boiler Repair:Jose Daniel PA-C The exam and treatment you received in the Emergency Department were for an urgent problem and are not intended as complete care. It is important that you follow up with a doctor, nurse practitioner, or physician???s bookkeeping assistant for ongoing care. If your symptoms [...] Follow-up Instructions: With: Address: When: [place] [facility] [address] [place] [id number] Business (1) In 3 days 05/19/2024 In the event that this physician does not participate in your insurance network, please consult with your insurance company to find a nearby participating provider. Patient Education Materials: Nausea and Vomiting, Adult A MESSAGE TO ALL PATIENTS REGARDING OPIOIDS PRESCRIPTION OPIOIDS: WHAT YOU NEED TO KNOW Prescription opioids can be used to help relieve gkdnkkta-qt-kycsur pain and are often prescribed following a [...] tell y (more content not included)... Normal [facility] HEMATOLOGYOrdered By: SYSTEM SYSTEM on 05-16-2024 Basophils/100 [...] 05-16-2024 Albumin [Mass/Vol] 4.1 g/dL Normal 3.3-5.0 [facility] Comment on above: Performed By: #### 2 [id number] #### [facility] [address] [place] [address] Albumin/Globulin (S) [Mass conc ratio] 1.5 Normal 1.1-2.2 [facility] Comment on above: Performed By: #### 2 [id number] #### [facility] [address] [place] [address] ALP [Catalytic activity/Vol] 76 Int._Unit/L Normal 21-98 [facility] Comment on above: Performed By: #### 2 [id number] #### [facility] [address] [place] [address] ALT No additional P-5'-P [Catalytic activity/Vol] 9 Int._Unit/L Normal 6-46 [facility] Comment on above: Performed By: #### 2 [id number] #### [facility] [address] [place] [address] AST [Catalytic activity/Vol] 18 Int._Unit/L Normal 5-43 [facility] Comment on above: Performed By: #### 2 [id number] #### [facility] [address] [place] [address] Bilirubin [Mass/Vol] 1.0 mg/dL Normal 0.0-1.1 [facility] Comment on above: Performed By: #### 2 [id number] #### [facility] [address] [place] [address] Bilirubin.direct [Mass/Vol] 0.1 mg/dL Normal 0.0-0.4 [facility] Comment on above: Performed By: #### 2 [id number] #### [facility] [address] [place] [address] Bilirubin.indirect [Mass or moles/Vol] 0.9 mg/dL Normal 0.1-0.9 [facility] Comment on above: Performed By: #### 2 [id number] #### [facility] [address] [place] [address] Globulin (S) [Mass/Vol] 2.8 g/dL Normal 1.4-4.0 [facility] Comment on above: Performed By: #### 2 [id number] #### [facility] [address] [place] [address] Protein [Mass/Vol] 6.9 g/dL Normal 6.0-7.8 [facility] Comment on above: Performed By: #### 2 [id number] #### [facility] [address] [place] [address] Lipase Levelon 05-16-2024 Lipase [Catalytic activity/Vol] 15 U/L Normal 13-58 [facility] Comment on above: Performed By: #### 2 [id number] #### [facility] [address] [place] [address] Troponin 0 Hr.Ordered By: [facility] SYSTEM on 05-16-2024 Troponin HS 4.70 pg/mL Low 10.10-27.1 0 [facility] Comment on above: Interpretive Data: T he 95% CI (Confidence Interval) PPV (Positive Predictive Value) for myocardial infarction in females is 38 pg/mL, in males 51 pg/mL. The results should be used in conjunction with clinical conditions of myocardial infarction. (Access High Sensitivity Troponin I Instructions For Use, [employer], December 2017) Result Comment: The 95% CI (Confidence Interval) PPV (Positive Predictive Value) for myocardial infarction in females is 38 pg/mL, in males 51 pg/mL. The results should be used in conjunction with clinical conditions of myocardial infarction. (Access High Sensitivity Troponin I Instructions For Use, [employer], December 2017) Performed By: #### 1 [id number] #### [facility] [address] [place] [address] UA with Cult Rflxon 05-16-20 24 Bilirubin Ql (U) Negative Normal Negative [facility] Comment on above: Performed By: #### 4 [id number] #### [facility] [address] [place] [address] Clarity (U) Clear Normal Clear [facility] Comment on above: Performed By: #### 4 [id number] #### [facility] [address] [place] [address] Color (U) Yellow Normal Yellow [facility] Comment on above: Result Comment: Micr oscopic readings are only performed on those samples that meet specific criteria set forth by [facility]. Performed By: #### 4 [id number] #### [facility] [address] [place] [address] Glucose Ql (U) Negative Normal Negative [facility] Comment on above: Performed By: #### 4 [id number] #### [facility] [address] [place] [address] Hemoglobin Auto test strip (U) [Mass/Vol] Negative Normal Negative [facility] Comment on above: Performed By: #### 4 [id number] #### [facility] [address] [place] [address] Ketones Auto test strip Ql (U) Negative Normal Negative [facility] Comment on above: Performed By: #### 4 [id number] #### [facility] [address] [place] [address] Leukocyte esterase Auto test strip Ql (U) Negative Normal Negative [facility] Comment on above: Performed By: #### 4 [id number] #### [facility] [address] [place] [address] Nitrite Auto test strip Ql (U) Negative Normal Negative [facility] Comment on above: Performed By: #### 4 [id number] #### [facility] [address] [place] [address] pH (U) 8.0 [pH] Invalid Interpretation Code 5.0-9.0 [facility] Comment on above: Performed By: #### 4 [id number] #### [facility] [address] [place] [address] Protein Ql (U) Negative Normal Negative [facility] Comment on above: Performed By: #### 4 [id number] #### [facility] [address] [place] [address] Specific gravity (U) [Rel density] 1.036 Invalid Interpretation Code 1.005-1.03 0 [facility] Comment on above: Performed By: #### 4 [id number] #### [facility] [address] [place] [address] Urobilinogen (U) [Mass/Vol] Negative Normal Negative [facility] Comment on above: Performed By: #### 4 [id number] #### [facility] [address] [place] [address] Type of Urine collection method Clean Catch Normal [facility] Comment on above: Performed By: #### 4 [id number] #### [facility] [address] [place] [address] URINALYSISOrdered By: SYSTEM SYSTEM on 05-16-2024 Bilirubin Ql (U) Negative Normal Negativemg /dL FT UA Auto SS Clarity (U) Clear (05/16/24 3:20 PM) Normal Clear [facility] [place] [place] UA Auto SS Color (U) Yellow 1 (05/16/24 3:20 PM) Normal Yellow [facility] UA Auto SS Comment on above: Interpretive Data: M icroscopic readings are only performed on those samples that meet specific criteria set forth by [facility]. Glucose Ql (U) Negative Normal Negativemg [...] strip Ql (U) Negative Normal Negativemg /dL [facility] [place] UA Auto SS pH (U) 8.0 *NA* (05/16/24 3:20 PM) Invalid Interpretation Code 5.0 - 9.0 [facility] [place] UA Auto SS Protein Ql (U) Negative Normal Negativemg /dL [facility] [place] UA Auto SS Specific gravity (U) [Rel density] 1.036 *NA* (05/16/24 3:20 PM) Invalid Interpretation Code 1.005 - 1.030 [facility] [place] UA Auto SS Urobilinogen (U) [Mass/Vol] Negative Normal Negativemg /dL [facility] [place] UA Auto SS URINALYSISOrdered By: Jose Daniel on 05-16-2024 UA Spec Desc Clean Catch (05/16/24 3:20 PM) Normal [facility] [place] UA Auto SS XR Chest Single Viewon [...] mGy = . DAP = . Normal [facility] eGFRon 05-16-2024 eGFR 58 mL/min/1.73 m2 Low >=59 [facility] Comment on above: Performed By: #### 1 [id number] #### [facility] [address] [place] [address] ED Note-Physicianon 05-11-20 24 ED Note-Physician ED Note-Physician Basic Information Time [...] Contact Information AZUL GORMAN In 3 days 05/13/2024 EST [address] [place] [address]- [facility] (1) Additional Instructions: Patient Education Abdominal Pain, [...] made to ensure accuracy, however, inadvertently computerized fisheries director mistakes may be present. Appropriate healthcare PPE [...] Vitamin D deficiency Historical Accidental fall Agent [place] ASTHMA Benzodiazepine withdrawal Bipolar disorder Callus of foot Cerebral hemorrhage chronic back pain Chronic GERD Chronic kidney disease, stage 2 (mild) Chronic pain Closed fracture of base of skull with concussion code blue d/t hypokalemia collapsed lung on the right compression fx back Constipation COPD - Chronic obstructive pulmonary disease depression (more content not included)... Normal [facility] Comment on above: Result Comment: Elec tronically Signed By: Malick Ho PA-C\.br\Date and Time Signed: 05/10/24 18:14 EST\.br\Electronically Co-Signed By: Malick Ho PA-C\.br\Date and Time Co-Signed: 05/10/24 19:23 EST\.br\Electronically Co-Signed By: Chandan Adhikari DO\.br\Date and Time Co-Signed: 05/11/24 07:57 EST BMPon 05-10-2024 Anion gap [Moles/Vol] 11 mmol/L Normal -16 [facility] Comment on above: Performed By: #### 2 [id number] #### [facility] [address] [place] [address] Calcium [Mass/Vol] 9.8 mg/dL Normal 8.9-11.1 [facility] Comment on above: Performed By: #### 2 [id number] #### [facility] [address] [place] [address] Chloride [Moles/Vol] 97 mmol/L Low 101-111 [facility] Comment on above: Performed By: #### 2 [id number] #### [facility] [address] [place] [address] CO2 [Moles/Vol] 34 mmol/L High 21-31 [facility] Comment on above: Performed By: #### 2 [id number] #### [facility] [address] [place] [address] Creatinine [Mass/Vol] 0.9 mg/dL Normal 0.5-1.3 [facility] Comment on above: Performed By: #### 2 [id number] #### [facility] [address] [place] [address] Glucose [Mass/Vol] 124 mg/dL Normal 55-199 [facility] Comment on above: Performed By: #### 2 [id number] #### [facility] [address] [place] [address] Potassium [Moles/Vol] 3.3 mmol/L Low 3.5-5.3 [facility] Comment on above: Performed By: #### 2 [id number] #### [facility] [address] [place] [address] Sodium [Moles/Vol] 139 mmol/L Normal 135-145 [facility] Comment on above: Performed By: #### 2 [id number] #### [facility] [address] [place] [address] Urea nitrogen [Mass/Vol] 9 mg/dL Normal 5-21 [facility] Comment on above: Performed By: #### 2 [id number] #### [facility] [address] [place] [address] Urea nitrogen/Creatinine [Mass ratio] 10 No Units Normal 10-20 [facility] Comment on above: Performed By: #### 2 [id number] #### [facility] [address] [place] [address] CBC w/ Auto Diffon 4 Basophils/100 WBC (Bld) 0.7 % Normal 0.0-2.0 [facility] Comment on above: Performed By: #### 2 [id number] #### [facility] [address] [place] [address] Basophils/Leukocytes Auto (Bld) [Pure # fraction] 0.0 E9/L Normal 0.0-0.2 [facility] Comment on above: Performed By: #### 2 [id number] #### [facility] [address] [place] [address] Eosinophils (Bld) [#/Vol] 0.2 E9/L Normal 0.0-0.5 [facility] Comment on above: Performed By: #### 2 [id number] #### [facility] [address] [place] [address] Eosinophils/100 WBC (Bld) 2.6 % Normal 0.0-8.0 [facility] Comment on above: Performed By: #### 2 [id number] #### [facility] [address] [place] [address] Erythrocyte distribution width (RBC) [Ratio] 13.9 % Normal 10.9-14.2 [facility] Comment on above: Performed By: #### 2 [id number] #### [facility] [address] [place] [address] Hematocrit (Bld) [Volume fraction] 40.3 % Normal 34.0-46.0 [facility] Comment on above: Performed By: #### 2 [id number] #### [facility] [address] [place] [address] Hemoglobin (Bld) [Mass/Vol] 13.4 g/dL Normal 12.0-16.0 [facility] Comment on above: Performed By: #### 2 [id number] #### [facility] [address] [place] [address] Lymphocytes (Bld) [#/Vol] 1.0 E9/L Normal 1.0-4.0 [facility] Comment on above: Performed By: #### 2 [id number] #### [facility] [address] [place] [address] Lymphocytes/100 WBC (Bld) 16.0 % Normal 14.0-50.0 [facility] Comment on above: Performed By: #### 2 961080 #### [facility] [address] [place] [address] MCH (RBC) [Entitic mass] 29.0 pg Normal 27.0-34.0 [facility] Comment on above: Performed By: #### 2 [id number] #### [facility] [address] [place] [address] MCHC (RBC) [Mass/Vol] 33.2 g/dL Normal 31.4-36.0 [facility] Comment on above: Performed By: #### 2 [id number] #### [facility] [address] [place] [address] MCV (RBC) [Entitic vol] 87.4 fL Normal 80.0-100.0 [facility] Comment on above: Performed By: #### 2 158462 #### [facility] [address] [place] [address] Monocytes (Bld) [#/Vol] 0.6 E9/L Normal 0.2-1.0 [facility] Comment on above: Performed By: #### 2 607475 #### [facility] [address] [place] [address] Neutrophils (Bld) [#/Vol] 4.6 E9/L Normal 2.0-7.5 [facility] Comment on above: Performed By: #### 2 470581 #### [facility] [address] [place] [address] Neutrophils/100 WBC (Bld) 71.1 % Normal 36.0-75.0 [facility] Comment on above: Performed By: #### 2 906390 #### [facility] [address] [place] [address] Platelet mean volume (Bld) [Entitic vol] 7.1 fL Normal 6.4-10.8 [facility] Comment on above: Performed By: #### 2 808494 #### [facility] [address] [place] [address] Platelets (Bld) [#/Vol] 228.0 E9/L Normal 150.0-500. 0 [facility] Comment on above: Performed By: #### 2 [id number] #### [facility] [address] [place] [address] RBC (Bld) [#/Vol] 4.6 E12/L Normal 4.3-5.9 [facility] Comment on above: Performed By: #### 2 [id number] #### [facility] [address] [place] [address] WBC corrected for nucl RBC Auto (Bld) [#/Vol] 6.5 E9/L Normal 4.0-11.0 [facility] Comment on above: Performed By: #### 2 [id number] #### [facility] [address] [place] [address] CHEMISTRYOrdered By: SYSTEM SYSTEM on 05-10-2024 Albumin [...] 2023 ED Clinical Summary ED Clinical Summary [place] [address] ED Clinical Summary Person Information Name: MAEGAN DYE/[facility] Age: 74 Years : 1950 Sex: Female Language: Peruvian PCP: AZUL GORMAN CNP Marital Status: Visit [...] 05/10/2024 19:36:15 05/10/2024 19:36:15 05/10/2024 19:36:15 ADDRESS: [address] [facility] [id number] PHYS DOC NOTES: MEDICAL INFORMATION: Prescriptions Given: Medications to Continue with No Changes Other Medications acetaminophen-hydrocodone ([place] 325 mg-5 mg oral tablet) 1 Tablets [...] day. fluticasone nasal (fluticasone 0.05 mg/inh Nasal [place]) 2 Sprays Nasal Inhalation every day. each nostril. Refills: 5. loratadine (loratadine 10 mg oral capsule) 1 Capsules By Mouth every day. [facility] Prescription (Walker) Dispense one walker. Refills: 0. [...] Follow up: With: Address: When: AZUL GORMAN [address] [place], [place] [id number] Business () In 3 days 05/13/2024 DIAGNOSIS: 1:Abdominal pain Normal [facility] ED Patient Summaryon 024 ED Patient Summary ED Patient Summary [place] [address] Patient Discharge Instructions Person Information Name: MAEGAN DYE Age: 74 Years Arrival Date: 05/10/2024 17:55:11 Discharge Diagnosis: 1:Abdominal pain Primary Care Physician: AZUL GORMAN CNP Provider Information Primary Provider: Chandan Adhikari DO Advanced Supervisor Boiler Repair:Malick Ho PA-C The exam and treatment you received in the Emergency Department were for an urgent problem and are not intended as complete care. It is important that you follow up with a doctor, nurse practitioner, or physician???s bookkeeping assistant for ongoing care. If your symptoms [...] Follow-up Instructions: With: Address: When: AZUL GORMAN [address] [place], [place] [id number] Business (1) In 3 days 05/13/2024 In the event that this physician does not participate in your insurance network, please consult with your insurance company to find a nearby participating provider. Patient Education Materials: Abdominal Pain, Adult A MESSAGE TO ALL PATIENTS REGARDING OPIOIDS PRESCRIPTION OPIOIDS: WHAT YOU NEED TO KNOW Prescription opioids can be used to help relieve xqhoasjm-ew-tztfue pain and are often prescribed following a [...] be struggling with addiction, tell your health pet caregiver and a (more content not included)... Normal [facility] Extra Blueon 05-10-2024 Tube Collected Plasma Yes Invalid Interpretation Code [facility] Comment on above: Performed By: #### 1 [id number] #### [facility] [address] [place] [address] HEMATOLOGYOrdered By: SYSTEM SYSTEM on 05-10-2024 Basophils/100 [...] 05-10-2024 Albumin [Mass/Vol] 4.1 g/dL Normal 3.3-5.0 [facility] Comment on above: Performed By: #### 2 [id number] #### [facility] [address] [place] [address] Albumin/Globulin (S) [Mass conc ratio] 1.4 Normal 1.1-2.2 [facility] Comment on above: Performed By: #### 2 [id number] #### [facility] [address] [place] [address] ALP [Catalytic activity/Vol] 86 Int._Unit/L Normal 21-98 [facility] Comment on above: Performed By: #### 2 073482 #### [facility] [address] [place] [address] ALT No additional P-5'-P [Catalytic activity/Vol] 10 Int._Unit/L Normal 6-46 [facility] Comment on above: Performed By: #### 2 [id number] #### [facility] [address] [place] [address] AST [Catalytic activity/Vol] 20 Int._Unit/L Normal 5-43 [facility] Comment on above: Performed By: #### 2 193754 #### [facility] [address] [place] [address] Bilirubin [Mass/Vol] 0.6 mg/dL Normal 0.0-1.1 [facility] Comment on above: Performed By: #### 2 [id number] #### [facility] [address] [place] [address] Bilirubin.direct [Mass/Vol] 0.1 mg/dL Normal 0.0-0.4 [facility] Comment on above: Performed By: #### 2 648016 #### [facility] [address] [place] [address] Bilirubin.indirect [Mass or moles/Vol] 0.5 mg/dL Normal 0.1-0.9 [facility] Comment on above: Performed By: #### 2 068202 #### [facility] [address] [place] [address] Globulin (S) [Mass/Vol] 3.0 g/dL Normal 1.4-4.0 [facility] Comment on above: Performed By: #### 2 027056 #### [facility] [address] [place] [address] Protein [Mass/Vol] 7.1 g/dL Normal 6.0-7.8 [facility] Comment on above: Performed By: #### 2 [id number] #### [facility] [address] [place] [address] Lipase Levelon 05-10-2024 Lipase [Catalytic activity/Vol] 23 U/L Normal 13-58 [facility] Comment on above: Performed By: #### 2 [id number] #### [facility] [address] [place] [address] Pre-Arrival Noteon 4 Pre-Arrival Note Pre-Arrival Note Pre-Arrival Summary Name: , Current Date: 05/10/2024 17:56:39 EST Gender: Female Date of : Age: 74 Pre-Arrival Type: EMS ETA: 05/10/2024 18:18:00 EST Primary Care Physician: Presenting Problem: n/v Pre-Arrival User: Sandy Chisholm RN Referring Source: Location: MD Completion Date/Time: 05/10/2024 17:48:00 [facility] Emergency Department Pre-Hospital Report Form _ Vital Signs: Pre-Hospital Report: Treatment in Route: Response to Treatment: Misc. Issues: Normal [facility] UA with Cult Rflxon 05-10-20 24 Bilirubin Ql (U) Negative Normal Negative [facility] Comment on above: Performed By: #### 4 [id number] #### [facility] [address] [place] [address] Clarity (U) Clear Normal Clear [facility] Comment on above: Performed By: #### 4 [id number] #### [facility] [address] [place] [address] Color (U) Light-Yellow Normal Yellow [facility] Comment on above: Result Comment: Micr oscopic readings are only performed on those samples that meet specific criteria set forth by [facility]. Performed By: #### 4 [id number] #### [facility] [address] [place] [address] Glucose Ql (U) Negative Normal Negative [facility] Comment on above: Performed By: #### 4 [id number] #### [facility] [address] [place] [address] Hemoglobin Auto test strip (U) [Mass/Vol] Negative Normal Negative [facility] Comment on above: Performed By: #### 4 [id number] #### [facility] [address] [place] [address] Ketones Auto test strip Ql (U) Negative Normal Negative [facility] Comment on above: Performed By: #### 4 [id number] #### [facility] [address] [place] [address] Leukocyte esterase Auto test strip Ql (U) Negative Normal Negative [facility] Comment on above: Performed By: #### 4 [id number] #### [facility] [address] [place] [address] Nitrite Auto test strip Ql (U) Negative Normal Negative [facility] Comment on above: Performed By: #### 4 [id number] #### [facility] [address] [place] [address] pH (U) 7.0 [pH] Invalid Interpretation Code 5.0-9.0 [facility] Comment on above: Performed By: #### 4 [id number] #### [facility] [address] [place] [address] Protein Ql (U) Negative Normal Negative [facility] Comment on above: Performed By: #### 4 [id number] #### [facility] [address] [place] [address] Specific gravity (U) [Rel density] 1.010 Invalid Interpretation Code 1.005-1.03 0 [facility] Comment on above: Performed By: #### 4 [id number] #### [facility] [address] [place] [id number] Urobilinogen (U) [Mass/Vol] Negative Normal Negative [facility] Comment on above: Performed By: #### 4 [id number] #### [facility] [address] [place] [id number] Type of Urine collection method Clean Catch Normal [facility] Comment on above: Performed By: #### 4 [id number] #### [facility] [address] [place] [id number] URINALYSISOrdered By: SYSTEM SYSTEM on 05-10-2024 Bilirubin Ql (U) Negative Normal Negativemg /dL [facility] [place] UA Auto SS Clarity (U) Clear (05/10/24 6:14 PM) Normal Clear [facility] UA Auto SS Color (U) Light-Yellow 1 (05/10/24 6:14 PM) Normal Yellow [facility] UA Auto SS Comment on above: Interpretive Data: M icroscopic readings are only performed on those samples that meet specific criteria set forth by [facility]. Glucose Ql (U) Negative Normal Negativemg [...] PM) Invalid Interpretation Code 1.005 - 1.030 [facility] [place] UA Auto SS Urobilinogen (U) [Mass/Vol] Negative Normal Negativemg /dL [facility] [place] UA Auto SS URINALYSISOrdered By: Malick Ho on 05-10-2024 UA Spec Desc Clean Catch (05/10/24 6:14 PM) Normal [facility] [place] UA Auto SS Work Phone: eGFRon 05-10-2024 eGFR 66 mL/min/1.73 m2 Normal >=59 [facility] Comment on above: Performed By: #### 1 [id number] #### [facility] [address] [place] [address] C Urineon 05-06-2024 Bacteria identified Cx Nom [...] Locations R1: This test was performed at: [facility], [address] [place] [address], [address] , , [facility] Comment on above: Performed By: #### 2 [id number] #### [facility] [address] [place] [address] ED Note-Physicianon 05-05-20 ED Note-Physician ED Note-Physician Basic Information Time Seen: Alvaro BYRD, Rodrigue Granado 04/17/2024 15:56 Chief Complaint pt states I want to go to [employer]. I dont want to live my life anymore denies plan History of Present Illness 74-year-old female reports to the emergency department with complaints of suicidal ideations. She states that she does not want to live anymore. She states that she is wants to stop living as a cripple . She denies any plan of hurting herself. Reports that she has been admitted to [facility] 1 S. before. She states that she [...] and Complexity of Problems Differential Diagnosis: [] [facility] Data External documents reviewed: [] My EKG interpretation: [] My CT interpretation: [] My X-ray interpretation: [] My Ultrasound interpretation: [] Decision rules/scores evaluated: [] Discussed with: [] Treatment and Disposition ED Course: 74-year-old female reports emerged department with suicidal ideations. Denies any active plan. Reports symptoms of a slowly been worsening. Exam of the patient is benign. She is medically clear. [facility] did evaluate the patient. After their evaluation, [...] prescription medications Follow-up With When Contact Information [facility] In 3 days 04/20/2024 EST Additional Instructions: AZUL GORMAN In 3 days 04/20/2024 EST [address] [place] [address] [facility] (1) Additional Instructions: Call Dr for diagnosis based follow up Patient Education Suicidal Feelings: How to Help Yourself Attestation Patient seen and evaluated by the physician bookkeeping assistant. Attending physician was present in the emergency department and supervised care. This visit was performed by both the physician and an APC. I performed all aspects of the MDM as documented. This report was transcribed using voice recognition software. Every effort was made to ensure accuracy, however, inadvertently computerized fisheries director mistakes may be present. Appropriate healthcare PPE [...] without exa (more content not included)... Normal [facility] Comment on above: Result Comment: Elec tronically Signed By: Rodrigue John PA-C\.br\Date and Time Signed: 04/17/24 19:55 EST\.br\Electronically Co-Signed By: Carlos Coates MD\.br\Date and Time Co-Signed: 05/05/24 12:09 EST ED Clinical Summaryon 2023 ED Clinical Summary ED Clinical Summary [place] [id number] ED Clinical Summary Person Information Name: MAEGAN DYE/[facility] Age: 74 Years : 1950 Sex: Female Language: Peruvian PCP: AZUL GORMAN CNP Marital Status: Visit [...] 05/04/2024 19:58:21 05/04/2024 19:58:21 05/04/2024 19:58:21 ADDRESS: [facility] [address] [facility] [id number] PHYS DOC NOTES: MEDICAL INFORMATION: Prescriptions Given: Medications to Continue with No Changes Other Medications acetaminophen-hydrocodone (Whitewood 325 mg-5 mg oral tablet) 1 Tablets [...] capsule) 1 Capsules By Mouth every day. [facility] Prescription (Walker) Dispense one walker. Refills: 0. [...] EDUCATION INFORMATION: Instructions: Follow up: DIAGNOSIS: Normal [facility] ED Note-Physicianon 05-04-20 ED Note-Physician ED Note-Physician Basic Information Time Seen: Jose Daniel PA-C 05/03/2024 20:51 Chief Complaint [facility]. per EMS pt son called [...] and symmetry. No ataxia with finger-nose or tiou-ez-bheq. Intact strength and sensation of bilateral upper [...] day(s), # 10 cap(s), Refills(s) 0, Pharmacy: [id number], 154, cm, 05/03/24 20:53:00 EST, Height/Length [...] AZUL GORMAN In 3 days 05/06/[address] [place] [address] [facility] (1) Additional Instructions: Patient Education Urinary Tract Infection, Adult Attestation Patient seen and evaluated by the physician bookkeeping assistant. Attending phys (more content not included)... Normal [facility] Comment on above: Result Comment: Elec tronically Signed By: Jose Daniel PA-C\.br\Date and Time Signed: 05/04/24 00:39 EST\.br\Electronically Co-Signed By: Mati Taylor DO\.br\Date and Time Co-Signed: 05/04/24 01:31 EST ED Patient Education Noteon 05-04-2024 ED Patient Education Note ED Patient Education Note Normal [facility] ED Patient Summaryon 024 ED Patient Summary ED Patient Summary [address] [address] Patient Discharge Instructions Person Information Name: MAEGAN DYE Age: 74 Years Arrival Date: 05/04/2024 17:03:37 Discharge Diagnosis: Primary Care Physician: AZUL GORMAN CNP Provider Information Primary Provider: Advanced Supervisor Boiler Repair:None The exam and treatment you received in the Emergency Department were for an urgent problem and are not intended as complete care. It is important that you follow up with a doctor, nurse practitioner, or physician???s bookkeeping assistant for ongoing care. If your symptoms [...] opioids can be used to help relieve jcwstdkv-zk-cbfrwx pain and are often prescribed following a [...] be struggling with addiction, tell your health pet caregiver and ask for guidance or call [facility]???S National Helpline at 7-277-181-HELP. v Source: [place] Department of Health and Human Services/Center for Disease Control & Prevention [facility] Medicatio (more content not included)... Normal [facility] XR Chest Single Viewon 05-04 XR Chest [...] mGy = na DAP = na Normal [facility] CHEMISTRYOrdered By: SYSTEM SYSTEM on 05-03-2024 Amphetamines [...] 2023 ED Clinical Summary ED Clinical Summary [place] [address] ED Clinical Summary Person Information Name: MAEGAN DYE/[facility] Age: 74 Years : 1950 Sex: Female Language: Peruvian PCP: AZUL GORMAN CNP Marital Status: Visit [...] 05/03/2024 22:38:20 05/03/2024 22:38:20 05/03/2024 22:38:20 ADDRESS: [address] [place] [id number] PHYS DOC NOTES: MEDICAL INFORMATION: Prescriptions Given: New Medications [id number], [address], [place] [phone], [phone] cephalexin (cephalexin 500 mg Cap) 1 Capsules By Mouth every 12 hours for 5 Days. Refills: 0. Medications to Continue with No Changes Other Medications acetaminophen-hydrocodone (Whitewood 325 mg-5 mg oral tablet) 1 Tablets [...] capsule) 1 Capsules By Mouth every day. [facility] Prescription (Segundo) Dispense one walker. Refills: 0. [...] Follow up: With: Address: When: AZUL GORMAN [address] [place] [address] [employer] (6) In 3 days 05/06/2024 DIAGNOSIS: UTI (urinary tract infection) Normal [facility] ED Patient Summaryon ED Patient Summary ED Patient Summary [address] [address] Patient Discharge Instructions Person Information Name: MAEGAN DYE Age: 74 Years Arrival Date: 05/03/2024 20:44:04 Discharge Diagnosis: UTI (urinary tract infection) Primary Care Physician: AZUL GORMAN CNP Provider Information Primary Provider: Mati Taylor DO Advanced Supervisor Boiler Repair:Jose Daniel PA-C The exam and treatment you received in the Emergency Department were for an urgent problem and are not intended as complete care. It is important that you follow up with a doctor, nurse practitioner, or physician???s bookkeeping assistant for ongoing care. If your symptoms [...] Follow-up Instructions: With: Address: When: AZUL GORMAN [address] [place] [address] [employer] (1) In 3 days 05/06/2024 In the event that this physician does not participate in your insurance network, please consult with your insurance company to find a nearby participating provider. Patient Education Materials: Urinary Tract Infection, Adult A MESSAGE TO ALL PATIENTS REGARDING OPIOIDS PRESCRIPTION OPIOIDS: WHAT YOU NEED TO KNOW Prescription opioids can be used to help relieve xcwylgfp-dn-pmmgnv pain and are often prescribed following a [...] your healt (more content not included)... Normal [facility] Pre-Arrival Noteon Pre-Arrival Note Pre-Arrival Note Pre-Arrival Summary Name: , [place] [facility] Current Date: 05/03/2024 20:44:33 EST Gender: Female Date of : Age: 74 Pre-Arrival Type: EMS ETA: 05/03/2024 21:05:00 EST Primary Care Physician: Presenting Problem: sundowners? Pre-Arrival User: Mar Wilcox RN Referring Source: Location: MD Completion Date/Time: 05/03/2024 20:35:00 [facility] Emergency Department Pre-Hospital Report Form _ Vital Signs: Pre-Hospital Report: Treatment in Route: Response to Treatment: Misc. Issues: Normal [facility] U Drug Screenon 05-03-2024 Amphetamines Screen method >1000 ng/mL Ql (U) Negative Normal NEGATIVE [facility] Comment on above: Result Comment: Nega tive Cutoff: <1000 ng/mL Performed By: #### 2 [id number] #### [facility] [address] [place] [address] Barbiturates Screen Ql (U) Negative Normal NEGATIVE [facility] Comment on above: Result Comment: Nega tive Cutoff: <200 ng/mL Performed By: #### 2 [id number] #### [facility] [address] [place] [address] Benzodiazepines Ql (U) Negative Normal NEGATIVE [facility] Comment on above: Result Comment: Nega tive Cutoff: <200 ng/mL Performed By: #### 2 [id number] #### [facility] [address] [place] [address] Cannabinoids Screen Ql (U) Negative Normal NEGATIVE [facility] Comment on above: Result Comment: Nega tive Cutoff: <50 ng/mL Performed By: #### 2 [id number] #### [facility] [address] [place] [address] Cocaine Ql (U) Negative Normal NEGATIVE [facility] Comment on above: Result Comment: Nega tive Cutoff: <300 ng/mL Performed By: #### 2 [id number] #### [facility] [address] [place] [address] Opiates Screen Ql (U) Negative Normal NEGATIVE [facility] Comment on above: Result Comment: Nega tive Cutoff: <300 ng/mL Performed By: #### 2 [id number] #### [facility] [address] [place] [address] Phencyclidine Screen method >25 ng/mL Ql (U) Negative Normal NEGATIVE [facility] Comment on above: Result Comment: Nega tive Cutoff: <25 ng/mL These drug screen results are to be used for medical (i.e., treatment) purposes only. Unconfirmed drug screening results must not be used for non-medical purposes (e.g., employment testing, legal testing). Performed By: #### 2 [id number] #### [facility] [address] [place] [address] U Fentanyl Negative Normal NEGATIVE [facility] Comment on above: Result Comment: Nega tive Cutoff: <5 ng/mL These drug screen results are to be used for medical (i.e., treatment) purposes only. Unconfirmed drug screening results must not be used for non-medical purposes (e.g., employment testing, legal testing). Performed By: #### 2 [id number] #### [facility] [address] [place] [address] UA with Cult [employer] 05-03-20 24 Bilirubin Ql (U) Negative Normal Negative [facility] Comment on above: Performed By: #### 4 [id number] #### [facility] [address] [place] [address] Clarity (U) Clear Normal Clear [facility] Comment on above: Performed By: #### 4 [id number] #### [facility] [address] [place] [address] Color (U) Dark-Yellow Abnormal Yellow [facility] Comment on above: Result Comment: Micr oscopic readings are only performed on those samples that meet specific criteria set forth by [facility]. Performed By: #### 4 [id number] #### [facility] [address] [place] [address] Epithelial cells.squamous Auto (Urine sed) [#/Area] 0-2 Invalid Interpretation Code [facility] Comment on above: Performed By: #### 4 [id number] #### [facility] [address] [place] [address] Glucose Ql (U) Negative Normal Negative [facility] Comment on above: Performed By: #### 4 [id number] #### [facility] [address] [place] [address] Hemoglobin Auto test strip (U) [Mass/Vol] Negative Normal Negative [facility] Comment on above: Performed By: #### 4 [id number] #### [facility] [address] [place] [address] Ketones Auto test strip Ql (U) Negative Normal Negative [facility] Comment on above: Performed By: #### 4 [id number] #### [facility] [address] [place] [address] Leukocyte esterase Auto test strip Ql (U) Negative Normal Negative [facility] Comment on above: Performed By: #### 4 [id number] #### [facility] [address] [place] [address] Mucus Auto Ql (U) Negative Normal Negative [facility] Comment on above: Performed By: #### 4 [id number] #### [facility] [address] [place] [address] Nitrite Auto test strip Ql (U) 1+ mg/dL Abnormal Negative [facility] Comment on above: Performed By: #### 4 [id number] #### [facility] [address] [place] [address] pH (U) 6.0 [pH] Invalid Interpretation Code 5.0-9.0 [facility] Comment on above: Performed By: #### 4 [id number] #### [facility] [address] [place] [address] Protein Ql (U) Negative Normal Negative [facility] Comment on above: Performed By: #### 4 [id number] #### [facility] [address] [place] [address] RBC Ql (U) 0-3 Normal 0-3 [facility] Comment on above: Performed By: #### 4 [id number] #### [facility] [address] [place] [address] Specific gravity (U) [Rel density] 1.004 Invalid Interpretation Code 1.005-1.03 0 [facility] Comment on above: Performed By: #### 4 [id number] #### [facility] [address] [place] [address] Urobilinogen (U) [Mass/Vol] Negative Normal Negative [facility] Comment on above: Performed By: #### 4 [id number] #### [facility] [address] [place] [address] WBC Auto (Urine sed) [#/Area] 0-5 Normal 0-5 [facility] Comment on above: Performed By: #### 4 [id number] #### [facility] [address] [place] [address] Type of Urine collection method Clean Catch Normal [facility] Comment on above: Performed By: #### 4 [id number] #### [facility] [address] [place] [address] URINALYSISOrdered By: SYSTEM SYSTEM on 05-03-2024 Bilirubin Ql (U) Negative Normal Negativemg /dL [facility] UA Auto SS Clarity (U) Clear (05/03/24 9:49 PM) Normal Clear [facility] UA Auto SS Color (U) Dark-Yellow 3 *ABN* (05/03/24 9:49 PM) Invalid Interpretation Code Yellow [facility] UA Auto SS Comment on above: Interpretive Data: M icroscopic readings are only performed on those samples that meet specific criteria set forth by [facility]. Epithelial cells.squamous Auto (Urine sed) [#/Area] [...] Protein Ql (U) Negative Normal Negativemg /dL [facility] [place] [place] UA Auto SS RBC Ql (U) 0-3 graded/HPF Normal 0-3graded/ HPF [facility] UA Auto SS Specific gravity (U) [Rel density] 1.004 *NA* (05/03/24 9:49 PM) Invalid Interpretation Code 1.005 - 1.030 [facility] [place] [place] UA Auto SS Urobilinogen (U) [Mass/Vol] Negative Normal Negativemg /dL [facility] [place] [place] UA Auto SS WBC Auto (Urine sed) [#/Area] 0-5 graded/HPF Normal 0-5graded/ HPF [facility] [place] [place] UA Auto SS URINALYSISOrdered By: Jose Daniel on 05-03-2024 UA Spec Desc Clean Catch (05/03/24 9:49 PM) Normal [facility] [place] [place] UA Auto SS C Urineon 04-30-2024 Bacteria [...] Locations R1: This test was performed at: [facility], [address] [place] [address], [address]- , , Normal [facility] Comment on above: Performed By: #### 2 [id number] #### [facility] [address] [place] [address] CHEMISTRYOrdered By: SYSTEM SYSTEM on 04-28-2024 Albumin [...] Called to Kemi Arita in ED by cmk. Interpretive Data: N egative Cutoff: <300 ng/mL [...] Remisol Heme URINALYSISOrdered By: SYSTEM SYSTEM on 1204-2024 Bacteria Auto Ql (U) Trace /HPF Normal [...] that meet specific criteria set forth by [facility]. Epithelial cells.renal Computer assisted Ql (U) [...] Desc Clean Catch (04/28/24 12:59 PM) Normal [facility] [place] [place] UA Auto SS Work Phone: ED Note-Physicianon [...] and Complexity of Problems Differential Diagnosis: [] [facility] Data External documents reviewed: [] My [...] AZUL GORMAN In 3 days 04/29/[address] [place] [address] [place] [address] [facility] (1) Additional Instructions: Call Dr for diagnosis based follow up Attestation Patient seen and evaluated by the physician bookkeeping assistant. Attending physician was present in the emergency department and supervised care. This visit was performed by both the physician and an APC. I performed all aspects of the MDM as documented. This report was transcribed using voice recognition software. Every effort was made to ensure accuracy, however, inadvertently computerized fisheries director mistakes may be present. Appropriate healthcare PPE [...] Historical Acc (more content not included)... Normal [facility] Comment on above: Result Comment: Elec tronically Signed By: Rodrigue John PA-C\.br\Date and Time Signed: 04/26/24 23:02 EST\.br\Electronically Co-Signed By: Chandan Adhikari DO\.br\Date and Time Co-Signed: 04/27/24 07:28 EST .UA With Cult Reflexon 04-26 Bilirubin Ql (U) 1+ Abnormal Negative [facility] Comment on above: Result Comment: Urin e dipstick chemistry results may be inaccurate due to intense urine color. Performed By: #### 1 [id number] #### [facility] [address] [place] [address] Clarity (U) CLEAR Normal Clear [facility] Comment on above: Result Comment: Urin e dipstick chemistry results may be inaccurate due to intense urine color. Performed By: #### 1 [id number] #### [facility] [address] [place] [address] Color (U) ORANGE Abnormal Yellow [facility] Comment on above: Result Comment: Urin e dipstick chemistry results may be inaccurate due to intense urine color. Performed By: #### 1 [id number] #### [facility] [address] [place] [address] Epithelial cells.squamous LM.HPF (Urine sed) [#/Area] 0-2 Normal [facility] Comment on above: Performed By: #### 1 [id number] #### [facility] [address] [place] [address] Glucose Ql (U) TRACE Abnormal Negative [facility] Comment on above: Result Comment: Urin e dipstick chemistry results may be inaccurate due to intense urine color. Performed By: #### 1 [id number] #### [facility] [address] [place] [address] Hemoglobin Auto test strip (U) [Mass/Vol] Negative Normal Negative [facility] Comment on above: Result Comment: Urin e dipstick chemistry results may be inaccurate due to intense urine color. Performed By: #### 1 [id number] #### [facility] [address] [place] [address] Ketones Ql (U) Negative Normal Negative [facility] Comment on above: Result Comment: Urin e dipstick chemistry results may be inaccurate due to intense urine color. Performed By: #### 1 [id number] #### [facility] [address] [place] [address] Leukocyte esterase Auto test strip Ql (U) TRACE Abnormal Negative [facility] Comment on above: Result Comment: Urin e dipstick chemistry results may be inaccurate due to intense urine color. Performed By: #### 1 [id number] #### [facility] [address] [place] [address] Nitrite Auto test strip Ql (U) Positive Abnormal Negative [facility] Comment on above: Result Comment: Urin e dipstick chemistry results may be inaccurate due to intense urine color. Performed By: #### 1 [id number] #### [facility] [address] [place] [address] pH (U) 5.5 [pH] Invalid Interpretation Code 5.0-9.0 [facility] Comment on above: Result Comment: Urin e dipstick chemistry results may be inaccurate due to intense urine color. Performed By: #### 1 [id number] #### [facility] [address] [place] [address] Protein Ql (U) 1+ Abnormal Negative [facility] Comment on above: Result Comment: Urin e dipstick chemistry results may be inaccurate due to intense urine color. Performed By: #### 1 [id number] #### [facility] [address] [place] [address] RBC Ql (U) 0-3 Normal 0-3 [facility] Comment on above: Performed By: #### 1 [id number] #### [facility] [address] [place] [address] Specific gravity (U) [Rel density] 1.010 Invalid Interpretation Code 1.005-1.03 0 [facility] Comment on above: Result Comment: Urin e dipstick chemistry results may be inaccurate due to intense urine color. Performed By: #### 1 [id number] #### [facility] [address] [place] [id number] Type of Urine collection method Clean Catch Normal [facility] Comment on above: Result Comment: Urin e dipstick chemistry results may be inaccurate due to intense urine color. Performed By: #### 1 [id number] #### [facility] [address] [id number] Urobilinogen Qn (U) 4.0 {Rolan'U}/dL Abnormal 0.0-1.0 [facility] Comment on above: Result Comment: Urin e dipstick chemistry results may be inaccurate due to intense urine color. Performed By: #### 1 [id number] #### [facility] [address] [place] [address] WBC LM.HPF (Urine sed) [#/Area] 0-5 Normal 0-5 [facility] Comment on above: Performed By: #### 1 [id number] #### [facility] [address] [place], [place] [id number] ED Clinical Summaryon 2023 ED Clinical Summary ED Clinical Summary [address] [address] ED Clinical Summary Person Information Name: MAEGAN DYE[place] Age: 74 Years : 1950 Sex: Female Language: Peruvian PCP: AZUL GORMAN CNP Marital Status: Visit [...] 04/26/2024 19:32:57 04/26/2024 19:32:57 04/26/2024 19:32:57 ADDRESS: [facility] [address] [facility] [id number] PHYS DOC NOTES: MEDICAL INFORMATION: Prescriptions Given: Medications to Continue with No Changes Other Medications acetaminophen-hydrocodone ([place] 325 mg-5 mg oral tablet) 1 Tablets [...] day. fluticasone nasal (fluticasone 0.05 mg/inh Nasal [place]) 2 Sprays Nasal Inhalation every day. each nostril. Refills: 5. loratadine (loratadine 10 mg oral capsule) 1 Capsules By Mouth every day. [facility] Prescription (Walker) Dispense one walker. Refills: 0. [...] INFORMATION: Instructions: Follow up: With: Address: When: Luis Tate (more content not included)... Normal [facility] ED Patient Education Noteon 04-26-2024 ED Patient Education Note ED Patient Education Note Normal [facility] ED Patient Summaryon 024 ED Patient Summary ED Patient Summary [address] [address] Patient Discharge Instructions Person Information Name: MAEGAN DYE Age: 74 Years Arrival Date: 04/26/2024 18:36:28 Discharge Diagnosis: Urinary retention Primary Care Physician: AZUL GORMAN CNP Provider Information Primary Provider: Chandan Adhikari DO Advanced Supervisor Boiler Repair:None The exam and treatment you received in the Emergency Department were for an urgent problem and are not intended as complete care. It is important that you follow up with a doctor, nurse practitioner, or physician???s bookkeeping assistant for ongoing care. If your symptoms [...] Follow-up Instructions: With: Address: When: AZUL GORMAN [address] [place], [place] [address] [address] Business (1) In 3 days 04/29/2024 Comments: [...] opioids can be used to help relieve ckggcjsx-nv-pujsrg pain and are often prescribed following a [...] care professio (more content not included)... Normal [facility] Pre-Arrival Noteon 4 Pre-Arrival Note Pre-Arrival Note Pre-Arrival Summary Name: Maegan polo/NICK Lopez Current Date: 04/26/2024 18:37:20 EST Gender: Female Date of : Age: 74 Pre-Arrival Type: EMS ETA: 04/26/2024 18:54:00 EST Primary Care Physician: Presenting Problem: urinary problems Pre-Arrival User: Daphnie Santiago RN Referring Source: Location: MD Completion Date/Time: 04/26/2024 18:25:00 [facility] Emergency Department Pre-Hospital Report Form _ Vital Signs: Pre-Hospital Report: Treatment in Route: Response to Treatment: Misc. Issues: Normal [facility] UA with Cult Rflxon 04-26-20 24 Bilirubin Ql (U) TNP Invalid Interpretation Code [facility] Comment on above: Result Comment: Test Not Performed Due To Interfering Substance-color. See .UA with cult reflex order for results. Performed By: #### 4 [id number] #### [facility] [address] [place] [address] Clarity (U) TNP Invalid Interpretation Code [facility] Comment on above: Result Comment: Test Not Performed Due To Interfering Substance-color. See .UA with cult reflex order for results. Performed By: #### 4 [id number] #### [facility] [address] [place] [address] Color (U) TNP Invalid Interpretation Code [facility] Comment on above: Result Comment: Test Not Performed Due To Interfering Substance-color. See .UA with cult reflex order for results. Microscopic readings are only performed on those samples that meet specific criteria set forth by [facility]. Performed By: #### 4 [id number] #### [facility] [address] [place] [address] Glucose Ql (U) TNP Invalid Interpretation Code [facility] Comment on above: Result Comment: Test Not Performed Due To Interfering Substance-color. See .UA with cult reflex order for results. Performed By: #### 4 [id number] #### [facility] [address] [place] [address] Hemoglobin Auto test strip (U) [Mass/Vol] TNP Invalid Interpretation Code [facility] Comment on above: Result Comment: Test Not Performed Due To Interfering Substance-color. See .UA with cult reflex order for results. Performed By: #### 4 [id number] #### [facility] [address] [place] [address] Ketones Auto test strip Ql (U) TNP Invalid Interpretation Code [facility] Comment on above: Result Comment: Test Not Performed Due To Interfering Substance-color. See .UA with cult reflex order for results. Performed By: #### 4 [id number] #### [facility] [address] [place] [address] Leukocyte esterase Auto test strip Ql (U) TNP Invalid Interpretation Code [facility] Comment on above: Result Comment: Test Not Performed Due To Interfering Substance-color. See .UA with cult reflex order for results. Performed By: #### 4 [id number] #### [facility] [address] [place] [address] Nitrite Auto test strip Ql (U) TNP Invalid Interpretation Code [facility] Comment on above: Result Comment: Test Not Performed Due To Interfering Substance-color. See .UA with cult reflex order for results. Performed By: #### 4 [id number] #### [facility] [address] [place] [address] pH (U) TNP Invalid Interpretation Code 5.0-9.0 [facility] Comment on above: Result Comment: Test Not Performed Due To Interfering Substance-color. See .UA with cult reflex order for results. Performed By: #### 4 [id number] #### [facility] [address] [place] [address] Protein Ql (U) TNP Invalid Interpretation Code [facility] Comment on above: Result Comment: Test Not Performed Due To Interfering Substance-color. See .UA with cult reflex order for results. Performed By: #### 4 [id number] #### [facility] [address] [place] [address] Specific gravity (U) [Rel density] TNP Invalid Interpretation Code 1.005-1.03 0 [facility] Comment on above: Result Comment: Test Not Performed Due To Interfering Substance-color. See .UA with cult reflex order for results. Performed By: #### 4 [id number] #### [facility] [address] [place] [address] Urobilinogen (U) [Mass/Vol] TNP Invalid Interpretation Code [facility] Comment on above: Result Comment: Test Not Performed Due To Interfering Substance-color. See .UA with cult reflex order for results. Performed By: #### 4 [id number] #### [facility] [address] [place] [address] Type of Urine collection method Clean Catch Normal [facility] Comment on above: Performed By: #### 4 [id number] #### [facility] [address] [place] [address] URINALYSISOrdered By: Kellen Garvin on 04-26-2024 Bilirubin Ql (U) TNP Invalid Interpretation Code [facility] [place] [place] [facility] Comment on above: Result Comment: Test Not Performed Due To Interfering Substance-color. See .UA with cult reflex order for results. Bilirubin Ql (U) 1+ 2 *ABN* (04/26/24 6:56 PM) Invalid Interpretation Code Negative [facility] [place] [place] [facility] SS Comment on above: Result Comment: Urin e dipstick chemistry results may be inaccurate due to intense urine color. Clarity (U) TNP Invalid Interpretation Code [facility] [place] [place] [facility] Auto SS Comment on above: Result Comment: Test Not Performed Due To Interfering Substance-color. See .UA with cult reflex order for results. Clarity (U) Clear 22 (04/26/24 6:56 PM) Normal Clear [facility] [place] [place] [facility] Auto SS Comment on above: Result Comment: Urin e dipstick chemistry results may be inaccurate due to intense urine color. Color (U) TNP Invalid Interpretation Code [facility] [place] [place] [facility] Auto SS Comment on above: Result Comment: Test Not Performed Due To Interfering Substance-color. See .UA with cult reflex order for results. Interpretive Data: M icroscopic readings are only performed on those samples that meet specific criteria set forth by [facility]. Color (U) [place] 5 *ABN* (04/26/24 6:56 PM) Invalid Interpretation Code Yellow [facility] [place] [place] [facility] Auto SS Comment on above: Result Comment: Urin e dipstick chemistry results may be inaccurate due to intense urine color. Epithelial cells.squamous LM.HPF (Urine sed) [#/Area] 0-2 /HPF Normal [facility] [place] [place] UA Auto SS Glucose Ql (U) TNP Invalid Interpretation Code [facility] [place] [place] [facility] SS Comment on above: Result Comment: Test Not Performed Due To Interfering Substance-color. See .UA with cult reflex order for results. Glucose Ql (U) Trace mg/dL Invalid Interpretation Code Negativemg /dL [facility] [place] [place] [facility] Auto SS Comment on above: Result Comment: Urin e dipstick chemistry results may be inaccurate due to intense urine color. Hemoglobin Auto test strip (U) [Mass/Vol] TNP Invalid Interpretation Code [facility] [place] [place] [facility] Auto SS Comment on above: Result Comment: Test Not Performed Due To Interfering Substance-color. See .UA with cult reflex order for results. Hemoglobin Auto test strip (U) [Mass/Vol] Negative 20 (04/26/24 6:56 PM) Normal Negative [facility] [place] [place] [facility] Auto SS Comment on above: Result Comment: Urin e dipstick chemistry results may be inaccurate due to intense urine color. Ketones Auto test strip Ql (U) TNP Invalid Interpretation Code [facility] [place] [place] [facility] Auto SS Comment on above: Result Comment: Test Not Performed Due To Interfering Substance-color. See .UA with cult reflex order for results. Ketones Ql (U) Negative Normal Negativemg /dL [facility] [place] [place] [facility] Auto SS Comment on above: Result Comment: Urin e dipstick chemistry results may be inaccurate due to intense urine color. Leukocyte esterase Auto test strip Ql (U) TNP Invalid Interpretation Code [facility] [place] [place] [facility] Auto Comment on above: Result Comment: Test Not Performed Due To Interfering Substance-color. See .UA with cult reflex order for results. Leukocyte esterase Auto test strip Ql (U) Trace Gretchen/uL Invalid Interpretation Code NegativeLe u/uL [facility] [place] [place] [facility] Auto SS Comment on above: Result Comment: Urin e dipstick chemistry results may be inaccurate due to intense urine color. Nitrite Auto test strip Ql (U) TNP Invalid Interpretation Code [facility] [place] [place] [facility] Auto Comment on above: Result Comment: Test Not Performed Due To Interfering Substance-color. See .UA with cult reflex order for results. Nitrite Auto test strip Ql (U) Positive Invalid Interpretation Code Negativemg /dL [facility] [place] [place] [facility] Auto SS Comment on above: Result Comment: Urin e dipstick chemistry results may be inaccurate due to intense urine color. pH (U) TNP Invalid Interpretation Code 5.0 - 9.0 [facility] Auto Comment on above: Result Comment: Test Not Performed Due To Interfering Substance-color. See .UA with cult reflex order for results. pH (U) 5.5 24 *NA* (04/26/24 6:56 PM) Invalid Interpretation Code 5.0 - 9.0 [facility] [place] [place] [facility] Auto Comment on above: Result Comment: Urin e dipstick chemistry results may be inaccurate due to intense urine color. Protein Ql (U) TNP Invalid Interpretation Code [facility] Auto Comment on above: Result Comment: Test Not Performed Due To Interfering Substance-color. See .UA with cult reflex order for results. Protein Ql (U) 1+ 15 *ABN* (04/26/24 6:56 PM) Invalid Interpretation Code Negative [facility] Auto Comment on above: Result Comment: Urin e dipstick chemistry results may be inaccurate due to intense urine color. RBC Ql (U) 0-3 /HPF Normal 0-3/HPF [facility] [place] [place] [facility]A Auto SS Specific gravity (U) [Rel density] TNP Invalid Interpretation Code 1.005 - 1.030 [facility] [place] [place] [facility] Auto Comment on above: Result Comment: Test Not Performed Due To Interfering Substance-color. See .UA with cult reflex order for results. Specific gravity (U) [Rel density] 1.010 26 *NA* (04/26/24 6:56 PM) Invalid Interpretation Code 1.005 - 1.030 [facility] [place] [place] [facility] Auto SS Comment on above: Result Comment: Urin e dipstick chemistry results may be inaccurate due to intense urine color. UA Spec Desc Clean Catch 18 (04/26/24 6:56 PM) Normal [facility] [place] [place] [facility] Auto SS Comment on above: Result Comment: Urin e dipstick chemistry results may be inaccurate due to intense urine color. Urobilinogen (U) [Mass/Vol] TNP Invalid Interpretation Code [facility] [place] [place] [facility] Auto SS Comment on above: Result Comment: Test Not Performed Due To Interfering Substance-color. See .UA with cult reflex order for results. Urobilinogen Qn (U) 4.4946210 {Rolan'U}/dL Inv alid Interpretation Code 0.0 - 1.0 EU/dL [facility] [place] [place] [facility] Auto SS Comment on above: Result Comment: Urin e dipstick chemistry results may be inaccurate due to intense urine color. WBC LM.HPF (Urine sed) [#/Area] 0-5 /HPF Normal 0-5/HPF [facility] [place] [place] UA Auto SS URINALYSISOrdered By: Rodrigue ferrara on 04-26-2024 UA Spec Desc Clean Catch (04/26/24 6:56 PM) Normal [facility] [place] [place] UA Auto SS Work Phone: ED Clinical Summaryon 2023 ED Clinical Summary ED Clinical Summary [place] [address] ED Clinical Summary Person Information Name: MAEGAN DYE/[facility] Age: 74 Years : 1950 Sex: Female Language: Peruvian PCP: AZUL GORMAN CNP Marital Status: Visit [...] 04/25/2024 15:38:33 04/25/2024 15:38:33 04/25/2024 15:38:33 ADDRESS: [address] [place] [address] [address] [facility] [id number] PHYS DOC NOTES: MEDICAL INFORMATION: Prescriptions Given: Medications to Continue with No Changes Other Medications acetaminophen-hydrocodone ([place] 325 mg-5 mg oral tablet) 1 Tablets [...] day. fluticasone nasal (fluticasone 0.05 mg/inh Nasal [place]) 2 Sprays Nasal Inhalation every day. each nostril. Refills: 5. loratadine (loratadine 10 mg oral capsule) 1 Capsules By Mouth every day. [facility] Prescription (Walker) Dispense one walker. Refills: 0. [...] With: Address: When: [place] [address] Datanyze (1) In 3 days 04/28/2024 DIAGNOSIS: Dysuria Normal [facility] ED Note-Physicianon 04-25-20 ED Note-Physician ED Note-Physician Basic Information Time Seen: Malick Ho PA-C 04/25/2024 14:27 Chief Complaint pt c/o urinary [...] AZUL GORMAN In 3 days 04/28/2024 EST [address] [place] [address] [facility] (1) Additional Instructions: Patient Education Dysuria Attestation [...] made to ensure accuracy, however, inadvertently computerized fisheries director mistakes may be present. Appropriate healthcare PPE [...] Vitamin D deficiency Historical Accidental fall Agent [place] ASTHMA Benzodiazepine withdrawal Bipolar disorder Callus of [...] calories Oral (more content not included)... Normal [facility] Comment on above: Result Comment: Elec tronically Signed By: Malick Ho PA-C\.br\Date and Time Signed: 04/25/24 15:36 EST\.br\Electronically Co-Signed By: Didier Hooks M.D.\.br\Date and Time Co-Signed: 04/25/24 19:35 EST ED Patient Summaryon 024 ED Patient Summary ED Patient Summary [place] [address] Patient Discharge Instructions Person Information Name: MAEGAN DYE Age: 74 Years Arrival Date: 04/25/2024 13:58:05 Discharge Diagnosis: Dysuria Primary Care Physician: AZUL GORMAN CNP Provider Information Primary Provider: Didier Hooks M.D. Advanced Supervisor Boiler Repair:Malick Ho PA-C The exam and treatment you received in the Emergency Department were for an urgent problem and are not intended as complete care. It is important that you follow up with a doctor, nurse practitioner, or physician???s bookkeeping assistant for ongoing care. If your symptoms become worse or you do not improve as expected and you are unable to reach your usual health care provider, you should return to the Emergency Department. We are available 24 hours a day. MAEGAN DYE has been given the following list of patient education materials, prescriptions and follow-up instructions: Follow-up Instructions: With: Address: When: [place] [address] Business (1) In 3 days 04/28/2024 In the event that this physician does not participate in your insurance network, please consult with your insurance company to find a nearby participating provider. Patient Education Materials: Dysuria A MESSAGE TO ALL PATIENTS REGARDING OPIOIDS PRESCRIPTION OPIOIDS: WHAT YOU NEED TO KNOW Prescription opioids can be used to help relieve lmrvsvgb-bk-egbkfx pain and are often prescribed following a [...] be struggling with addiction, tell your health pet caregiver and ask for guidance or (more content not included)... Normal [facility] C Urineon 04-23-2024 Bacteria identified Cx Nom [...] Locations R1: This test was performed at: [facility], [address] [place] [address], [id number]- , [place], Normal [facility] Comment on above: Performed By: #### 2 [id number] #### [facility] [address] [place] [address] ED Clinical Summaryon 2023 ED Clinical Summary ED Clinical Summary [facility] [address] [place], [place] [address] ED Clinical Summary Person Information [facility]: [facility] Age[facility] 74 Years : 1950 Sex: Female Language: Peruvian PCP: AZUL GORMAN CNP Marital Status: Visit [...] 04/21/2024 15:03:50 04/21/2024 15:03:50 04/21/2024 15:03:50 ADDRESS: [address] [place] [address] [address] [facility] [id number] PHYS DOC NOTES: MEDICAL INFORMATION: Prescriptions Given: New Medications [facility]/pharmacy #[id number], [address] [place], [place] [id number], [phone] ciprofloxacin (Cipro 250 mg Tab) 1 Tablets By Mouth every 12 hours for 7 Days. Refills: 0. Medications to Continue Taking That Have Changed [facility]/pharmacy #[id number], [address], [place] [id number], [phone] START: docusate (Colace 50 mg oral capsule) [...] Continue with No Changes Other Medications acetaminophen-hydrocodone ([place] 325 mg-5 mg oral tablet) 1 Tablets [...] capsule) 1 Capsules By Mouth every day. [facility] Prescription (Segundo) Dispense one walker. Refills: 0. [...] Adult Follow up: With: Address: When: [place] [address] Business (1) In 3 days 04/24/2024 Comments: Call Dr for diagnosis based follow up DIAGNOSIS: UTI (urinary tract infection) Normal [facility] ED Note-Physicianon 04-21-20 ED Note-Physician ED Note-Physician Basic Information Time Seen: Rodrigue John PA-C 04/21/2024 13:07 Chief Complaint patient presents with [...] and Complexity of Problems Differential Diagnosis: [] [facility] Data External documents reviewed: [] My [...] day(s), # 14 tab(s), Refills(s) 0, Pharmacy: [facility]/pharmacy #[id number], 154, cm, 04/21/24 13:16:00 EST, Height/Length Dosing, 66, kg, 04/21/24 13:16:00 EST, Weight Dosing docusate, 50 mg = 1 cap(s), Oral, BID, PRN for constipation, X 10 day(s), # 20 cap(s), Refills(s) 0, Pharmacy: [facility]/pharmacy #[id number], 154, cm, 04/21/24 13:16:00 EST, Height/Length Dosing, 66, kg, 04/21/24 13:16:00 EST, Weight Dosing senna, 17.2 mg = 2 tab(s), Oral, Once a day (at bedtime), # 20 tab(s), Refills(s) 0, Pharmacy: [facility]/pharmacy #[id number], 154, cm, 04/21/24 13:16:00 EST, Height/Length [...] bedtime) Follow-up With When Contact Information AZUL VITA In 3 days 04/24/[address] [place], [place] [address] [address]- Business (1) Additional Instructions: Call Dr for diagnosis based follow up Patient Education Urinary Tract Infection, Adult Attestation Patient seen and evaluated by the physician bookkeeping assistant. Attending physician was present in the emergency department and supervised care. This visit was performed by both the physician and an APC. I performed all aspects of the MDM as documented. This report was transcribed using voice recognition software. Every effort was made to ensure accuracy, however, inadvertently computerized tra (more content not included)... Normal [facility] Comment on above: Result Comment: Elec tronically Signed By: Rodrigeu John PA-C\.br\Date and Time Signed: 04/21/24 16:29 EST\.br\Electronically Co-Signed By: Johny Willson DO\.br\Date and Time Co-Signed: 04/21/24 17:04 EST ED Patient Summaryon 024 ED Patient Summary ED Patient Summary [place] [id number] Patient Discharge Instructions Person Information Name: MAEGAN DYE Age: 74 Years Arrival Date: 04/21/2024 13:01:53 Discharge Diagnosis: UTI (urinary tract infection) Primary Care Physician: AZUL GORMAN CNP Provider Information Primary Provider: Johny Willson DO Advanced Supervisor Boiler Repair:None The exam and treatment you received in the Emergency Department were for an urgent problem and are not intended as complete care. It is important that you follow up with a doctor, nurse practitioner, or physician???s bookkeeping assistant for ongoing care. If your symptoms [...] Instructions: With: Address: When: [place] [address] Business (1) In 3 days 04/24/2024 Comments: Call [...] opioids can be used to help relieve iomexkks-md-hzgonf pain and are often prescribed following a [...] be strugglin (more content not included)... Normal [facility] UA with Cult Rflxon 04-21-20 24 Bacteria Auto Ql (U) 1+ /HPF Abnormal Trace Fish er [facility] Comment on above: Performed By: #### 4 [id number] #### [facility] [address] [place] [address] Bilirubin Ql (U) Negative Normal Negative [facility] Comment on above: Performed By: #### 4 [id number] #### [facility] [address] [place] [address] Clarity (U) Turbid Abnormal Clear [facility] Comment on above: Performed By: #### 4 [id number] #### [facility] [address] [place] [address] Color (U) Light-Yellow Normal Yellow [facility] Comment on above: Result Comment: Micr oscopic readings are only performed on those samples that meet specific criteria set forth by [facility]. Performed By: #### 4 [id number] #### [facility] [address] [place] [address] Epithelial cells.squamous Auto (Urine sed) [#/Area] 3-4 Invalid Interpretation Code [facility] Comment on above: Performed By: #### 4 [id number] #### [facility] [address] [place] [address] Glucose Ql (U) Negative Normal Negative [facility] Comment on above: Performed By: #### 4 [id number] #### [facility] [address] [place] [address] Hemoglobin Auto test strip (U) [Mass/Vol] Trace Abnormal Negative [facility] Comment on above: Performed By: #### 4 [id number] #### [facility] [address] [place] [address] Ketones Auto test strip Ql (U) Negative Normal Negative [facility] Comment on above: Performed By: #### 4 [id number] #### [facility] [address] [place] [address] Leukocyte esterase Auto test strip Ql (U) 500 Gretchen/uL Abnormal Negative [facility] Comment on above: Performed By: #### 4 [id number] #### [facility] [address] [place] [address] Mucus Auto Ql (U) Negative Normal Negative [facility] Comment on above: Performed By: #### 4 [id number] #### [facility] [address] [place] [address] Nitrite Auto test strip Ql (U) 1+ mg/dL Abnormal Negative [facility] Comment on above: Performed By: #### 4 [id number] #### [facility] [address] [place] [address] pH (U) 7.0 [pH] Invalid Interpretation Code 5.0-9.0 [facility] Comment on above: Performed By: #### 4 [id number] #### [facility] [address] [place] [address] Protein Ql (U) Negative Normal Negative [facility] Comment on above: Performed By: #### 4 [id number] #### [facility] [address] [place] [address] RBC Ql (U) 0-3 Normal 0-3 [facility] Comment on above: Performed By: #### 4 [id number] #### [facility] [address] [place] [address] Specific gravity (U) [Rel density] 1.006 Invalid Interpretation Code 1.005-1.03 0 [facility] Comment on above: Performed By: #### 4 [id number] #### [facility] [address] [place] [address] Urobilinogen (U) [Mass/Vol] Negative Normal Negative [facility] Comment on above: Performed By: #### 4 [id number] #### [facility] [address] [place] [address] WBC Auto (Urine sed) [#/Area] >75 Abnormal 0-5 [facility] Comment on above: Performed By: #### 4 [id number] #### [facility] [address] [place] [address] Type of Urine collection method Clean Catch Normal [facility] Comment on above: Performed By: #### 4 [id number] #### [facility] [address] [place] [address] URINALYSISOrdered By: SYSTEM SYSTEM on 04-21-2024 Bacteria Auto Ql (U) 1+ /HPF Invalid Interpretation Code Trace/HPF [facility] UA Auto SS Bilirubin Ql (U) Negative Normal Negativemg /dL [facility] UA Auto SS Clarity (U) Turbid *ABN* (04/21/24 2:02 PM) Invalid Interpretation Code Clear [facility] UA Auto SS Color (U) Light-Yellow 1 (04/21/24 2:02 PM) Normal Yellow [facility] UA Auto SS Comment on above: Interpretive Data: M icroscopic readings are only performed on those samples that meet specific criteria set forth by [facility]. Epithelial cells.squamous Auto (Urine sed) [#/Area] [...] Urobilinogen (U) [Mass/Vol] Negative Normal Negativemg /dL [facility] [place] UA Auto SS WBC Auto (Urine sed) [#/Area] >75 graded/HPF Invalid Interpretation Code 0-5graded/ HPF [facility] [place] UA Auto SS URINALYSISOrdered By: Rodrigue ferrara on 04-21-2024 UA Spec Desc Clean Catch (04/21/24 2:02 PM) Normal [facility] [place] UA Auto SS Work Phone: ED Clinical Summaryon 2023 ED Clinical Summary ED Clinical Summary [address] [address] ED Clinical Summary Person Information Name: MAEGAN [facility] Age: 74 Years : 1950 Sex: Female Language: Peruvian PCP: AZUL GORMAN CNP Marital Status: Visit [...] ADDRESS: [address] [facility] [id number] PHYS DOC NOTES: MEDICAL INFORMATION: Prescriptions Given: Medications to Continue with No Changes Other Medications acetaminophen-hydrocodone ([place] 325 mg-5 mg oral tablet) 1 Tablets [...] day. fluticasone nasal (fluticasone 0.05 mg/inh Nasal [place]) 2 Sprays Nasal Inhalation every day. each nostril. Refills: 5. loratadine (loratadine 10 mg oral capsule) 1 Capsules By Mouth every day. [facility] Prescription (Walker) Dispense one walker. Refills: 0. [...] up: With: Address: When: AZUL Cortez [address] [place] [id number] Business (1) In 3 days DIAGNOSIS: Constipation Normal [facility] ED Note-Physicianon 04-19-20 ED Note-Physician ED Note-Physician [...] GORMAN In 3 days [address] [place] [address]- Business (1) Additional Instructions: Patient Education Constipation, Adult [...] made to ensure accuracy, however, inadvertently computerized fisheries director mistakes may be present. Appropriate healthcare PPE [...] Vitamin D deficiency Historical Accidental fall Agent [place] ASTHMA Benzodiazepine withdrawal Bipolar disorder Callus of [...] Physical deconditioning (more content not included)... Normal [facility] Comment on above: Result Comment: Elec tronically Signed By: Malick Ho PA-C\.br\Date and Time Signed: 04/19/24 18:20 EST\.br\Electronically Co-Signed By: Didier Hooks M.D.\.br\Date and Time Co-Signed: 04/19/24 18:24 EST ED Patient Summaryon 024 ED Patient Summary ED Patient Summary [address] [address] Patient Discharge Instructions Person Information Name: MAEGAN DYE Age: 74 Years Arrival Date: 04/19/2024 10:40:29 Discharge Diagnosis: Constipation Primary Care Physician: AZUL GORMAN CNP Provider Information Primary Provider: Didier Hooks M.D. Advanced Supervisor Boiler Repair:Malick Ho PA-C The exam and treatment you received in the Emergency Department were for an urgent problem and are not intended as complete care. It is important that you follow up with a doctor, nurse practitioner, or physician???s bookkeeping assistant for ongoing care. If your symptoms [...] Follow-up Instructions: With: Address: When: AZUL VITA [address] [place], [place] [address] [address] Business (1) In 3 days In the event that this physician does not participate in your insurance network, please consult with your insurance company to find a nearby participating provider. Patient Education Materials: Constipation, Adult A MESSAGE TO ALL PATIENTS REGARDING OPIOIDS PRESCRIPTION OPIOIDS: WHAT YOU NEED TO KNOW Prescription opioids can be used to help relieve zuiwievg-pl-nrlkxx pain and are often prescribed following a [...] be struggling with addiction, tell your health pet caregiver and ask for guid (more content not included)... Normal [facility] UA with Cult Rflxon 04-19-20 24 Bilirubin Ql (U) Negative Normal Negative [facility] Comment on above: Performed By: #### 4 [id number] #### [facility] [address] [place] [address] Clarity (U) Clear Normal Clear [facility] Comment on above: Performed By: #### 4 [id number] #### [facility] [address] [place] [address] Color (U) Light-Yellow Normal Yellow [facility] Comment on above: Result Comment: Micr oscopic readings are only performed on those samples that meet specific criteria set forth by [facility]. Performed By: #### 4 [id number] #### [facility] [address] [place] [address] Glucose Ql (U) Negative Normal Negative [facility] Comment on above: Performed By: #### 4 [id number] #### [facility] [address] [place] [address] Hemoglobin Auto test strip (U) [Mass/Vol] Negative Normal Negative [facility] Comment on above: Performed By: #### 4 [id number] #### [facility] [address] [place] [address] Ketones Auto test strip Ql (U) Negative Normal Negative [facility] Comment on above: Performed By: #### 4 [id number] #### [facility] [address] [place] [address] Leukocyte esterase Auto test strip Ql (U) Negative Normal Negative [facility] Comment on above: Performed By: #### 4 [id number] #### [facility] [address] [place] [address] Nitrite Auto test strip Ql (U) Negative Normal Negative [facility] Comment on above: Performed By: #### 4 [id number] #### [facility] [address] [place] [address] pH (U) 6.0 [pH] Invalid Interpretation Code 5.0-9.0 [facility] Comment on above: Performed By: #### 4 [id number] #### [facility] [address] [place] [address] Protein Ql (U) Negative Normal Negative [facility] Comment on above: Performed By: #### 4 [id number] #### [facility] [address] [place] [address] Specific gravity (U) [Rel density] 1.010 Invalid Interpretation Code 1.005-1.03 0 [facility] Comment on above: Performed By: #### 4 [id number] #### [facility] [address] [place] [address] Urobilinogen (U) [Mass/Vol] Negative Normal Negative [facility] Comment on above: Performed By: #### 4 [id number] #### [facility] [address] [place] [address] Type of Urine collection method Clean Catch Normal [facility] Comment on above: Performed By: #### 4 [id number] #### [facility] [address] [place] [address] URINALYSISOrdered By: SYSTEM SYSTEM on 04-19-2024 Bilirubin Ql (U) Negative Normal Negativemg /dL [facility] [place] UA Auto SS Clarity (U) Clear (04/19/24 11:20 AM) Normal Clear [facility] [place] UA Auto SS Color (U) Light-Yellow 1 (04/19/24 11:20 AM) Normal Yellow [facility] Auto SS Comment on above: Interpretive Data: M icroscopic readings are only performed on those samples that meet specific criteria set forth by [facility]. Glucose Ql (U) Negative Normal Negativemg [...] strip Ql (U) Negative Normal Negativemg /dL [facility] [place] UA Auto SS pH (U) 6.0 *NA* (04/19/24 11:20 AM) Invalid Interpretation Code 5.0 - 9.0 [facility] [place] UA Auto SS Protein Ql (U) Negative Normal Negativemg /dL [facility] [place] UA Auto SS Specific gravity (U) [Rel density] 1.010 *NA* (04/19/24 11:20 AM) Invalid Interpretation Code 1.005 - 1.030 [facility] [place] UA Auto SS Urobilinogen (U) [Mass/Vol] Negative Normal Negativemg /dL [facility] [place] UA Auto SS URINALYSISOrdered By: Errol Estevez on 04-19-2024 UA Spec Desc Clean Catch (04/19/24 11:20 AM) Normal [facility] [place] UA Auto SS CBC w/ Auto Diffon 4 Basophils/100 WBC (Bld) 0.2 % Normal 0.0-2.0 [facility] Comment on above: Performed By: #### 2 [id number] #### [facility] [address] [place] [address] Basophils/Leukocytes Auto (Bld) [Pure # fraction] 0.0 E9/L Normal 0.0-0.2 [facility] Comment on above: Performed By: #### 2 [id number] #### [facility] [address] [place] [address] Eosinophils (Bld) [#/Vol] 0.2 E9/L Normal 0.0-0.5 [facility] Comment on above: Performed By: #### 2 [id number] #### [facility] [address] [place] [address] Eosinophils/100 WBC (Bld) 2.9 % Normal 0.0-8.0 [facility] Comment on above: Performed By: #### 2 [id number] #### [facility] [address] [place] [address] Erythrocyte distribution width (RBC) [Ratio] 13.8 % Normal 10.9-14.2 [facility] Comment on above: Performed By: #### 2 [id number] #### [facility] [address] [place] [address] Hematocrit (Bld) [Volume fraction] 38.9 % Normal 34.0-46.0 [facility] Comment on above: Performed By: #### 2 [id number] #### [facility] [address] [place] [address] Hemoglobin (Bld) [Mass/Vol] 12.8 g/dL Normal 12.0-16.0 [facility] Comment on above: Performed By: #### 2 [id number] #### [facility] [address] [place] [address] Lymphocytes (Bld) [#/Vol] 1.0 E9/L Normal 1.0-4.0 [facility] Comment on above: Performed By: #### 2 [id number] #### [facility] [address] [place] [address] Lymphocytes/100 WBC (Bld) 16.4 % Normal 14.0-50.0 [facility] Comment on above: Performed By: #### 2 [id number] #### [facility] [address] [place] [address] MCH (RBC) [Entitic mass] 29.1 pg Normal 27.0-34.0 [facility] Comment on above: Performed By: #### 2 [id number] #### [facility] [address] [place] [address] MCHC (RBC) [Mass/Vol] 33.0 g/dL Normal 31.4-36.0 [facility] Comment on above: Performed By: #### 2 [id number] #### [facility] [address] [place] [address] MCV (RBC) [Entitic vol] 88.2 fL Normal 80.0-100.0 [facility] Comment on above: Performed By: #### 2 [id number] #### [facility] [address] [place] [address] Monocytes (Bld) [#/Vol] 0.5 E9/L Normal 0.2-1.0 [facility] Comment on above: Performed By: #### 2 [id number] #### [facility] [address] [place] [address] Neutrophils (Bld) [#/Vol] 4.5 E9/L Normal 2.0-7.5 [facility] Comment on above: Performed By: #### 2 [id number] #### [facility] [address] [place] [address] Neutrophils/100 WBC (Bld) 72.0 % Normal 36.0-75.0 [facility] Comment on above: Performed By: #### 2 [id number] #### [facility] [address] [place] [address] Platelet mean volume (Bld) [Entitic vol] 7.4 fL Normal 6.4-10.8 [facility] Comment on above: Performed By: #### 2 [id number] #### [facility] [address] [place] [address] Platelets (Bld) [#/Vol] 243.0 E9/L Normal 150.0-500. 0 [facility] Comment on above: Performed By: #### 2 [id number] #### [facility] [address] [place] [address] RBC (Bld) [#/Vol] 4.4 E12/L Normal 4.3-5.9 [facility] Comment on above: Performed By: #### 2 [id number] #### [facility] [address] [place] [address] WBC corrected for nucl RBC Auto (Bld) [#/Vol] 6.3 E9/L Normal 4.0-11.0 [facility] Comment on above: Performed By: #### 2 [id number] #### [facility] [address] [place] [address] CHEMISTRYOrdered By: SYSTEM SYSTEM on 04-17-2024 Albumin [...] 04-17-2024 Albumin [Mass/Vol] 4.0 g/dL Normal 3.3-5.0 [facility] Comment on above: Performed By: #### 2 [id number] #### [facility] [address] [place] [address] Albumin/Globulin (S) [Mass conc ratio] 1.4 Normal 1.1-2.2 [facility] Comment on above: Performed By: #### 2 [id number] #### [facility] [address] [place] [address] ALP [Catalytic activity/Vol] 83 Int._Unit/L Normal 21-98 [facility] Comment on above: Performed By: #### 2 [id number] #### [facility] [address] [place] [address] ALT No additional P-5'-P [Catalytic activity/Vol] 10 Int._Unit/L Normal 6-46 [facility] Comment on above: Performed By: #### 2 [id number] #### [facility] [address] [place] [address] Anion gap [Moles/Vol] 8 mmol/L Normal 6-16 [facility] Comment on above: Performed By: #### 2 [id number] #### [facility] [address] [place] [address] AST [Catalytic activity/Vol] 23 Int._Unit/L Normal 5-43 [facility] Comment on above: Performed By: #### 2 [id number] #### [facility] [address] [place] [address] Bilirubin [Mass/Vol] 0.6 mg/dL Normal 0.0-1.1 [facility] Comment on above: Performed By: #### 2 [id number] #### [facility] [address] [place] [address] Calcium [Mass/Vol] 8.9 mg/dL Normal 8.9-11.1 [facility] Comment on above: Performed By: #### 2 [id number] #### [facility] [address] [place] [address] Chloride [Moles/Vol] 102 mmol/L Normal 101-111 [facility] Comment on above: Performed By: #### 2 [id number] #### [facility] [address] [place] [address] CO2 [Moles/Vol] 31 mmol/L Normal 21-31 [facility] Comment on above: Performed By: #### 2 [id number] #### [facility] [address] [place] [address] Creatinine [Mass/Vol] 0.9 mg/dL Normal 0.5-1.3 [facility] Comment on above: Performed By: #### 2 [id number] #### [facility] [address] [place] [address] Globulin (S) [Mass/Vol] 2.8 g/dL Normal 1.4-4.0 [facility] Comment on above: Performed By: #### 2 [id number] #### [facility] [address] [place] [address] Glucose [Mass/Vol] 127 mg/dL Normal 55-199 [facility] Comment on above: Performed By: #### 2 081953 #### [facility] [address] [place] [address] Potassium [Moles/Vol] 3.3 mmol/L Low 3.5-5.3 [facility] Comment on above: Performed By: #### 2 198523 #### [facility] [address] [place] [address] Protein [Mass/Vol] 6.8 g/dL Normal 6.0-7.8 [facility] Comment on above: Performed By: #### 2 [id number] #### [facility] [address] [place] [address] Sodium [Moles/Vol] 138 mmol/L Normal 135-145 [facility] Comment on above: Performed By: #### 2 438240 #### [facility] [address] [place] [address] Urea nitrogen [Mass/Vol] 9 mg/dL Normal 5-21 [facility] Comment on above: Performed By: #### 2 [id number] #### [facility] [address] [place] [address] Urea nitrogen/Creatinine [Mass ratio] 10 No Units Normal 10- [facility] Comment on above: Performed By: #### 2 [id number] #### [facility] [address] [place] [address] ED Clinical Summaryon 2023 ED Clinical Summary ED Clinical Summary [address] [address] ED Clinical Summary Person Information [facility]: [facility] Age[facility] 74 Years : 1950 Sex: Female Language: Peruvian PCP: AZUL GORMAN CNP Marital Status: Visit [...] 04/17/2024 17:43:02 04/17/2024 17:43:02 04/17/2024 17:43:02 ADDRESS: [facility] [address] [facility] [id number] PHYS DOC NOTES: MEDICAL INFORMATION: Prescriptions Given: Medications to Continue with No Changes Other Medications acetaminophen-hydrocodone ([place] 325 mg-5 mg oral tablet) 1 Tablets [...] day. fluticasone nasal (fluticasone 0.05 mg/inh Nasal [place]) 2 Sprays Nasal Inhalation every day. each nostril. Refills: 5. loratadine (loratadine 10 mg oral capsule) 1 Capsules By Mouth every day. [facility] Prescription (Segundo) Dispense one walker. Refills: 0. [...] Help Yourself Follow up: With: Address: When: [facility] In 3 days 04/20/2024 With: Address: When: AZUL GORMAN [address] [place] [address] [facility] (1) In 3 days 04/20/2024 Comments: Call Dr for diagnosis based follow up DIAGNOSIS: Suicidal ideation Normal [facility] ED Patient Summaryon 024 ED Patient Summary ED Patient Summary [address] [address] Patient Discharge Instructions Person Information Name: MAEGAN DYE Age: 74 Years Arrival Date: 04/17/2024 15:55:51 Discharge Diagnosis: Suicidal ideation Primary Care Physician: AZUL GORMAN CNP Provider Information Primary Provider: Advanced Supervisor Boiler Repair:None The exam and treatment you received in the Emergency Department were for an urgent problem and are not intended as complete care. It is important that you follow up with a doctor, nurse practitioner, or physician???s bookkeeping assistant for ongoing care. If your symptoms become worse or you do not improve as expected and you are unable to reach your usual health care provider, you should return to the Emergency Department. We are available 24 hours a day. MAEGAN DYE has been given the following list of patient education materials, prescriptions and follow-up instructions: Follow-up Instructions: With: Address: When: [facility] In 3 days 04/20/2024 With: Address: When: AZUL GORMAN Concetta Cort[address] [facility] [place] [address] [facility] (1) In 3 days 04/20/2024 Comments: Call Dr [...] opioids can be used to help relieve xcnrujin-sr-qqszdl pain and are often prescribed following a [...] risks of opioid (more content not included)... Normal [facility] Ethanolon 04-17-2024 Ethanol Lvl <10 Normal <=11 [facility] Comment on above: Performed By: #### 2 [id number] #### [facility] [address] [place] [address] Extra Blueon 04-17-2024 Tube Collected Plasma Yes Invalid Interpretation Code [facility] Comment on above: Performed By: #### 1 [id number] #### [facility] [address] [place] [address] HEMATOLOGYOrdered By: SYSTEM SYSTEM on 04-17-2024 Basophils/100 [...] Note Pre-Arrival Note Pre-Arrival Summary Name: , [facility] Current Date: 04/17/2024 16:01:18 EST Gender: Female Date of : Age: 74 Pre-Arrival Type: EMS ETA: 04/17/2024 16:15:00 EST Primary Care Physician: Presenting Problem: psych/SI Pre-Arrival User: Sandy Chisholm RN Referring Source: Location: PA Completion Date/Time: 04/17/2024 15:45:00 [facility] Emergency Department Pre-Hospital Report Form _ Vital Signs: Pre-Hospital Report: Treatment in Route: Response to Treatment: Misc. Issues: Normal [facility] UA with Cult Rflxon 04-17-20 24 Bilirubin Ql (U) Negative Normal Negative [facility] Comment on above: Performed By: #### 4 [id number] #### [facility] [address] [place] [address] Clarity (U) Clear Normal Clear [facility] Comment on above: Performed By: #### 4 [id number] #### [facility] [address] [place] [address] Color (U) Colorless Abnormal Yellow [facility] Comment on above: Result Comment: Micr oscopic readings are only performed on those samples that meet specific criteria set forth by [facility]. Performed By: #### 4 [id number] #### [facility] [address] [place] [address] Glucose Ql (U) Negative Normal Negative [facility] Comment on above: Performed By: #### 4 [id number] #### [facility] [address] [place] [address] Hemoglobin Auto test strip (U) [Mass/Vol] Negative Normal Negative [facility] Comment on above: Performed By: #### 4 [id number] #### [facility] [address] [place] [address] Ketones Auto test strip Ql (U) Negative Normal Negative [facility] Comment on above: Performed By: #### 4 [id number] #### [facility] [address] [place] [address] Leukocyte esterase Auto test strip Ql (U) Negative Normal Negative [facility] Comment on above: Performed By: #### 4 [id number] #### [facility] [address] [place] [address] 23653 Nitrite Auto test strip Ql (U) Negative Normal Negative [facility] Comment on above: Performed By: #### 4 [id number] #### [facility] [address] [place] [address] 0[address]30 pH (U) 6.0 [pH] Invalid Interpretation Code 5.0-9.0 [facility] Comment on above: Performed By: #### 4 [id number] #### [facility] [address] [place] [address] 19356 Protein Ql (U) Negative Normal Negative [facility] Comment on above: Performed By: #### 4 [id number] #### [facility] [address] [place] [address] 39328 Specific gravity (U) [Rel density] 1.005 Invalid Interpretation Code 1.005-1.03 0 [facility] Comment on above: Performed By: #### 4 [id number] #### [facility] [address] [place] [address] 54025 Urobilinogen (U) [Mass/Vol] Negative Normal Negative [facility] Comment on above: Performed By: #### 4 [id number] #### [facility] [address] [place] [address] 76725 Type of Urine collection method Clean Catch Normal [facility] Comment on above: Performed By: #### 4 [id number] #### [facility] [address] [place] [address] 72238 URINALYSISOrdered By: SYSTEM SYSTEM on 04-17-2024 Bilirubin Ql (U) Negative Normal Negativemg /dL [facility] [place] UA Auto SS Clarity (U) Clear (04/17/24 4:25 PM) Normal Clear [facility] [place] UA Auto SS Color (U) Colorless 1 *ABN* (04/17/24 4:25 PM) Invalid Interpretation Code Yellow [facility] [place] UA Auto SS Comment on above: Interpretive Data: M icroscopic readings are only performed on those samples that meet specific criteria set forth by [facility]. Glucose Ql (U) Negative Normal Negativemg /dL [facility] [place] UA Auto SS Hemoglobin Auto test strip (U) [Mass/Vol] Negative Normal Negativemg /dL FT UA Auto SS Ketones Auto test strip Ql (U) Negative Normal Negativemg /dL FT UA Auto SS Leukocyte esterase Auto test strip Ql (U) Negative Normal NegativeLe u/uL FT UA Auto SS Nitrite Auto test strip Ql (U) Negative Normal Negativemg /dL [facility] [place] UA Auto SS pH (U) 6.0 *NA* (04/17/24 4:25 PM) Invalid Interpretation Code 5.0 - 9.0 [facility] [place] UA Auto SS Protein Ql (U) Negative Normal Negativemg /dL [facility] [place] UA Auto SS Specific gravity (U) [Rel density] 1.005 *NA* (04/17/24 4:25 PM) Invalid Interpretation Code 1.005 - 1.030 [facility] [place] UA Auto SS Urobilinogen (U) [Mass/Vol] Negative Normal Negativemg /dL [facility] [place] UA Auto SS URINALYSISOrdered By: Rodrigue ferrara on 04-17-2024 UA Spec Desc Clean Catch (04/17/24 4:25 PM) Normal [facility] [place] UA Auto SS Work Phone: eGFRon 04-17-2024 eGFR 66 mL/min/1.73 m2 Normal >=59 [facility] Comment on above: Performed By: #### 1 [id number] #### [facility] [address] [place] [address] 69954 Urinalysison 04-15-2024 Appearance (U) Clear Normal Clear [facility] Comment on above: Order Comment: Name Collection Type:: Clean-Voided Midstream Performed By: #### C CRISTY BAUAPLUS #### [facility] [address] Bilirubin,Urine Negative Normal Negative [facility] Comment on above: Order Comment: Name Collection Type:: Clean-Voided Midstream Performed By: #### C UUCRISTYUAPLUS #### [address] Color (U) Colorless Normal Yellow [facility] Comment on above: Order Comment: Name Collection Type:: Clean-Voided Midstream Performed By: #### C UU, ADDONUAPLUS #### [address] Glucose Ql (U) Normal Normal Normal [facility] Comment on above: Order Comment: Name Collection Type:: Clean-Voided Midstream Performed By: #### C UU, ADDONUAPLUS #### [address] Ketones Ql (U) Negative Normal Negative [facility] Comment on above: Order Comment: Name Collection Type:: Clean-Voided Midstream Performed By: #### C UU, ADDONUAPLUS #### [address] Leukocyte esterase Test strip Ql (U) Negative Normal Negative [facility] Comment on above: Order Comment: Name Collection Type:: Clean-Voided Midstream Performed By: #### C UU, ADDONUAPLUS #### [place] [address] [place] Nitrite,Urine Negative Normal Negative [facility] Comment on above: Order Comment: Name Collection Type:: Clean-Voided Midstream Performed By: #### C UU, ADDONUAPLUS #### [place] [address] [place] Occult Blood,Urine Negative Normal Negative [facility] Comment on above: Order Comment: Name Collection Type:: Clean-Voided Midstream Result Comment: PERF ORMED BY: [place] [address] PATHOLOGIST COIN MACHINE MECHANIC HERO GRACIA M.D. Performed By: #### C UU, ADDONUAPLUS #### [place] [address] [place] pH (U) 7.0 [pH] Normal 5.0-9.0 [facility] Comment on above: Order Comment: Name Collection Type:: Clean-Voided Midstream Performed By: #### C UU, ADDONUAPLUS #### [address] Protein,Urine Negative Normal Negative [facility] Comment on above: Order Comment: Name Collection Type:: Clean-Voided Midstream Performed By: #### C UU, ADDONUAPLUS #### [address] Specificy [place],Urine 1.006 Normal 1.001-1.03 0 [facility] Comment on above: Order Comment: Name Collection Type:: Clean-Voided Midstream Performed By: #### C UU, ADDONUAPLUS #### [address] Urobilinogen,Urine Normal Normal Normal [facility] Comment on above: Order Comment: Name Collection Type:: Clean-Voided Midstream Performed By: #### C UU, ADDONUAPLUS #### [address] XR Hand 3+ Views Righton XR Hand [...] Willson FINAL REPORT Dictated: 04/15/2024 9:46 am Iasi Jackson MD Signed (Electronic Signature): 04/15/2024 9:46 am Signed by: Isai Jackson MD Transcribed by: GLORIA Technologist: SYDNIE Technical Comments Radiation Dose: Ka,r in mGy = na DAP = na Normal [facility] ED Clinical Summaryon 2023 ED Clinical Summary ED Clinical Summary [address] [address] ED Clinical Summary Person Information Name: MAEGAN DYE/[facility] Age: 74 Years : 1950 Sex: Female Language: Peruvian PCP: AZUL GORMAN CNP Marital Status: Visit Id: Visit Reason: Hand pain-swelling; Hand [...] 04/14/2024 20:35:03 04/14/2024 20:35:03 04/14/2024 20:35:03 ADDRESS: [address] [place] [address] [address] [facility] [id number] PHYS DOC NOTES: MEDICAL INFORMATION: Prescriptions Given: New Medications [facility]/pharmacy #[id number], [address] [place], [place] [id number], [phone] acetaminophen-hydrocodone ([place]wood 325 mg-5 mg oral tablet) 1 Tablets By Mouth every 6 hours as needed for pain. Refills: 0. Printed Prescriptions [facility] Prescription (Walker) Dispense one walker. Refills: 0. [...] day. fluticasone nasal (fluticasone 0.05 mg/inh Nasal [place]) 2 Sprays Nasal Inhalation every day. each [...] Follow up: With: Address: When: Kye Barrientos [address] [place], [place] [phone] [employer] (Wallop In 3 days 04/17/2024 Comments: Call the office of your primary care doctor to arrange for follow-up within the above-stated timeframe. Follow-up with your primary care doctor about this ED visit. You should review your labs, imaging, and diagnoses from this ED visit with your primary care physician. There are (more content not included)... Normal [facility] ED Note-Physicianon 04-14-20 ED Note-Physician ED Note-Physician [...] associated with some ecchymosis and swelling. . Tube Machine Operator Helper strength, finger abduction/adduction, wrist extension intact. Normal [...] patient was discharged home. Assessment/Plan Finger fracture (V37.395P: Fracture of unspecified phalanx of unspecified finger, initial encounter for closed fracture) Ordered: acetaminophen-hydrocodone, 1 tab(s), Oral, q6hr for pain, 4 tab(s), Refill(s) 0, [id number], 154, cm, 04/14/24 18:05:00 EST, Height/Length Dosing, 66.1, kg, 04/14/24 18:05:00 EST, Weight Dosing Orders: acetaminophen-oxycodone, 1 tab(s), Tab, Oral, Once, Stop date 04/14/24 20:08:00 EST, STAT, Start date 04/14/24 20:08:[address] [facility] Prescription, Walker, See Instructions, 1 EA, 0, Dispense one walker, Supply Finger Splint Application Splint Application Wrist XR Hand 3+ Views Right Medications Administered Given Percocet 5 mg-325 mg oral tablet, 1 tab(s), Oral Disposition Plan Patient Discharge Condition Stable Discharge Disposition Home Discharge Prescription List Prescriptions Whitewood 325 mg-5 mg oral tablet, 1 tab(s), Oral, q6hr, PRN Walker, See Instructions Follow-up With When Contact Information Fishman Iliana In 3 days 04/17/[address] [place], [place] [phone] [facility] (1) Additional Instructions: Call the office of [...] Vitamin D deficiency Historical Accidental fall Agent [place] ASTHMA Benzodiazepine withdrawal Bipolar disorder Callus of [...] Hypokalemia L (more content not included)... Normal [facility] Comment on above: Result Comment: Elec tronically Signed By: Johny Willson DO\.br\Date and Time Signed: 04/14/24 22:32 EST ED Patient Summaryon 024 ED Patient Summary ED Patient Summary [facility] [address] [place], [place] [address] Patient Discharge Instructions Person Information Name: MAEGAN DYE Age: 74 Years Arrival Date: 04/14/2024 17:44:58 Discharge Diagnosis: Finger fracture Primary Care Physician: AZUL GORMAN CNP Provider Information Primary Provider: Jonhy Willson DO Advanced Supervisor Boiler Repair:None The exam and treatment you received in the Emergency Department were for an urgent problem and are not intended as complete care. It is important that you follow up with a doctor, nurse practitioner, or physician???s bookkeeping assistant for ongoing care. If your symptoms [...] Instructions: With: Address: When: Kye Barrientos [address] [place] [address] [employer] (1) In 3 days 04/17/2024 Comments: Call the [...] opioids can be used to help relieve yateoinz-mk-daupjn pain and are often prescribed following a [...] ??? S (more content not included)... Normal [facility] C Urineon 04-13-2024 Bacteria identified Cx Nom [...] Locations R1: This test was performed at: [facility], [address] [place] [address], [phone] , , [facility] Comment on above: Performed By: #### 2 [id number] #### [facility] [address] [place] [address] C. diff by PCRon 04-12-2024 Clostridium difficile by PCR Negative Normal Negative [facility] Comment on above: Order Comment: Order added by Discern Expert. Result Comment: This test result should be correlated with clinical presentations and medical history by a healthcare provider to determine its clinical significance. Performed By: #### 4 [id number] #### [facility] [address] [place] [address] CDiff PCRon 04-12-2024 C. difficile toxin A+B Ql (Stl) No, PCR to follow Normal [facility] Comment on above: Performed By: #### 3 [id number] #### [facility] [address] [place] [address] Enteric Panel by PCRon 04-12 C. coli+jejuni+upsaliensi s DNA NAOMIE+non-probe Ql (Stl) Not detected Normal [facility] Comment on above: Result Comment: Test ing was performed utilizing reverse fisheries director (RT), polymerase chain reaction (PCR), and array [...] nulcleic acid test. Performed By: #### 1 [id number] #### [facility] [address] [place] [address] E. coli stx1+stx2 genes NAOMIE+non-probe Ql (Stl) Negative Normal [facility] Comment on above: Performed By: #### 1 [id number] #### [facility] [address] [place] [address] Enteric Panel Intrl QC Pass Normal [facility] Comment on above: Result Comment: Test ing was performed utilizing reverse fisheries director (RT), polymerase chain reaction (PCR), and array [...] 1 and 2. Performed By: #### 1 [id number] #### [facility] [address] [place] [address] Norovirus genogroup I+II RNA NAOMIE+non-probe Ql (Stl) Not detected Normal [facility] Comment on above: Performed By: #### 1 [id number] #### [facility] [address] [place] [address] Rotavirus A RNA NAOMIE+non-probe Ql (Stl) Not detected Normal [facility] Comment on above: Performed By: #### 1 [id number] #### [facility] [address] [place] [address] S. enterica+bongori DNA NAOMIE+non-probe Ql (Stl) Not detected Normal [facility] Comment on above: Result Comment: This test result should be correlated with clinical presentations and medical history by a healthcare provider to determine its clinical significance. Performed By: #### 1 [id number] #### [facility] [address] [place] [address] Shigella species+EIEC invasion plasmid antigen H ipaH gene NAOMIE+non-probe Ql (Stl) Not detected Normal [facility] Comment on above: Performed By: #### 1 [id number] #### [facility] [address] [place] [address] V. cholerae+parahaemolyti cus+vulnificus DNA NAOMIE+non-probe Ql (Stl) Not detected Normal [facility] Comment on above: Performed By: #### 1 [id number] #### [facility] [address] [place] [address] Y. enterocolitica DNA NAOMIE+non-probe Ql (Stl) Not detected Normal [facility] Comment on above: Performed By: #### 1 [id number] #### [facility] [address] [place] [address] Fecal WBC Lactoferrinon 03-26 Lactoferrin Ql (Stl) Negative Normal Negative [facility] Comment on above: Result Comment: The semi-quantitative detection of elevated levels of fecal lactoferrin is a marker for fecal leukocytes and an indication of intestinal inflammation. Performed By: #### 3 [id number] #### [facility] [address] [place] [address] CBC w/ Auto Diffon Basophils/100 WBC (Bld) 0.3 % Normal 0.0-2.0 [facility] Comment on above: Performed By: #### 2 [id number] #### [facility] [address] [place] [address]666 Basophils/Leukocytes Auto (Bld) [Pure # fraction] 0.0 E9/L Normal 0.0-0.2 [facility] Comment on above: Performed By: #### 2 [id number] #### [facility] [address] [place] [address] Eosinophils (Bld) [#/Vol] 0.2 E9/L Normal 0.0-0.5 [facility] Comment on above: Performed By: #### 2 [id number] #### [facility] [address] [place] [address] Eosinophils/100 WBC (Bld) 2.8 % Normal 0.0-8.0 [facility] Comment on above: Performed By: #### 2 [id number] #### [facility] [address] [place] [address] Erythrocyte distribution width (RBC) [Ratio] 13.5 % Normal 10.9-14.2 [facility] Comment on above: Performed By: #### 2 [id number] #### [facility] [address] [place] [address] Hematocrit (Bld) [Volume fraction] 41.7 % Normal 34.0-46.0 [facility] Comment on above: Performed By: #### 2 [id number] #### [facility] [address] [place] [address] Hemoglobin (Bld) [Mass/Vol] 13.9 g/dL Normal 12.0-16.0 [facility] Comment on above: Performed By: #### 2 [id number] #### [facility] [address] [place] [address] Lymphocytes (Bld) [#/Vol] 1.4 E9/L Normal 1.0-4.0 [facility] Comment on above: Performed By: #### 2 [id number] #### [facility] [address] [place] [address] Lymphocytes/100 WBC (Bld) 18.4 % Normal 14.0-50.0 [facility] Comment on above: Performed By: #### 2 [id number] #### [facility] [address] [place] [address] MCH (RBC) [Entitic mass] 29.4 pg Normal 27.0-34.0 [facility] Comment on above: Performed By: #### 2 [id number] #### [facility] [address] [place] [address] MCHC (RBC) [Mass/Vol] 33.4 g/dL Normal 31.4-36.0 [facility] Comment on above: Performed By: #### 2 [id number] #### [facility] [address] [place] [address] MCV (RBC) [Entitic vol] 87.9 fL Normal 80.0-100.0 [facility] Comment on above: Performed By: #### 2 [id number] #### [facility] [address] [place] [address] Monocytes (Bld) [#/Vol] 0.7 E9/L Normal 0.2-1.0 [facility] Comment on above: Performed By: #### 2 [id number] #### [facility] [address] [place] [address] Neutrophils (Bld) [#/Vol] 5.3 E9/L Normal 2.0-7.5 [facility] Comment on above: Performed By: #### 2 [id number] #### [facility] [address] [place] [address] Neutrophils/100 WBC (Bld) 69.3 % Normal 36.0-75.0 [facility] Comment on above: Performed By: #### 2 [id number] #### [facility] [address] [place] [address] Platelet 224.0 E9/L Normal 150.0-500. 0 [facility] Comment on above: Performed By: #### 2 [id number] #### [facility] [address] [place] [address] Platelet mean volume (Bld) [Entitic vol] 7.1 fL Normal 6.4-10.8 [facility] Comment on above: Performed By: #### 2 [id number] #### [facility] [address] [place] [address] RBC (Bld) [#/Vol] 4.8 E12/L Normal 4.3-5.9 [facility] Comment on above: Performed By: #### 2 [id number] #### [facility] [address] [place] [address] WBC corrected for nucl RBC Auto (Bld) [#/Vol] 7.6 E9/L Normal 4.0-11.0 [facility] Comment on above: Performed By: #### 2 [id number] #### [facility] [address] [place] [address] CHEMISTRYOrdered By: SYSTEM SYSTEM on 04-11-2024 Albumin [...] 04-11-2024 Albumin [Mass/Vol] 4.3 g/dL Normal 3.3-5.0 [facility] Comment on above: Performed By: #### 2 [id number] #### [facility] [address] [place] [address] Albumin/Globulin (S) [Mass conc ratio] 1.4 Normal 1.1-2.2 [facility] Comment on above: Performed By: #### 2 [id number] #### [facility] [address] [place] [address] ALP [Catalytic activity/Vol] 108 Int._Unit/L High 21-98 [facility] Comment on above: Performed By: #### 2 [id number] #### [facility] [address] [place] [address] ALT No additional P-5'-P [Catalytic activity/Vol] 10 Int._Unit/L Normal 6-46 [facility] Comment on above: Performed By: #### 2 [id number] #### [facility] [address] [place] [address] Anion gap [Moles/Vol] 9 mmol/L Normal 6-16 [facility] Comment on above: Performed By: #### 2 355533 #### [facility] [address] [place] [address] AST [Catalytic activity/Vol] 19 Int._Unit/L Normal 5-43 [facility] Comment on above: Performed By: #### 2 [id number] #### [facility] [address] [place] [address] Bilirubin [Mass/Vol] 0.4 mg/dL Normal 0.0-1.1 [facility] Comment on above: Performed By: #### 2 [id number] #### [facility] [address] [place] [address] Calcium [Mass/Vol] 9.5 mg/dL Normal 8.9-11.1 [facility] Comment on above: Performed By: #### 2 [id number] #### [facility] [address] [place] [address] Chloride [Moles/Vol] 101 mmol/L Normal 101-111 [facility] Comment on above: Performed By: #### 2 [id number] #### [facility] [address] [place] [address] CO2 [Moles/Vol] 32 mmol/L High 21-31 [facility] Comment on above: Performed By: #### 2 535328 #### [facility] [address] [place] [address] Creatinine [Mass/Vol] 1.2 mg/dL Normal 0.5-1.3 [facility] Comment on above: Performed By: #### 2 [id number] #### [facility] [address] [place] [address] Globulin (S) [Mass/Vol] 3.0 g/dL Normal 1.4-4.0 [facility] Comment on above: Performed By: #### 2 [id number] #### [facility] [address] [place] [address] Glucose [Mass/Vol] 101 mg/dL Normal 55-199 [facility] Comment on above: Performed By: #### 2 [id number] #### [facility] [address] [place] [address] Potassium [Moles/Vol] 4.0 mmol/L Normal 3.5-5.3 [facility] Comment on above: Performed By: #### 2 158654 #### [facility] [address] [place] [address] Protein [Mass/Vol] 7.3 g/dL Normal 6.0-7.8 [facility] Comment on above: Performed By: #### 2 [id number] #### [facility] [address] [place] [address] Sodium [Moles/Vol] 138 mmol/L Normal 135-145 [facility] Comment on above: Performed By: #### 2 [id number] #### [facility] [address] [place] [address] Urea nitrogen [Mass/Vol] 14 mg/dL Normal 5-21 [facility] Comment on above: Performed By: #### 2 [id number] #### [facility] [address] [place] [address] Urea nitrogen/Creatinine [Mass ratio] 12 No Units Normal 10-20 [facility] Comment on above: Performed By: #### 2 [id number] #### [facility] [address] [place] [address] ED Clinical Summaryon 2023 ED Clinical Summary ED Clinical Summary [address] [address] ED Clinical Summary Person Information Name: MAEGAN DYE/Raul Age: 74 Years : 1950 Sex: Female Language: Peruvian PCP: AZUL GORMAN CNP Marital Status: Visit Id: Visit Reason: Diarrhea; Genitourinary problem; BACK [id number] -CAN'T PEE Speciality: Acuity: 3 Enc Type: [...] 04/11/2024 16:28:40 04/11/2024 16:28:40 04/11/2024 16:28:40 ADDRESS: [facility] [address] [facility] [id number] PHYS DOC NOTES: MEDICAL INFORMATION: Prescriptions Given: New Medications [facility]/pharmacy #[id number], [address] [place], [place] [id number], [phone] amoxicillin (amoxicillin 500 mg Cap) 1 Capsules [...] day. fluticasone nasal (fluticasone 0.05 mg/inh Nasal [place]) 2 Sprays Nasal Inhalation every day. each [...] to Help Relieve Diarrhea, Adult; Diarrhea, Adult, Ymub-os-Oyur; Urinary Tract Infection, Adult, Orov-qk-Ugwj Follow up: With: Address: When: [place] [address] Business (1) Within 1 to 2 days Comments: For urine culture results and stool examination results DIAGNOSIS: 1:Diarrhea Normal [facility] ED Note-Nursingon 04-11-2024 ED Note-Nursing ED Note-Nursing Pt son called in for pt update. it was stated at that time that she has diarrhea because he gave her laxatives yesterday. Dr Coates notified. Normal [facility] ED Note-Physicianon 04-11-20 ED Note-Physician ED Note-Physician [...] day(s), # 21 cap(s), Refills(s) 0, Pharmacy: [facility]/pharmacy #[id number], 154, cm, 04/11/24 12:51:00 EST, Height/Length [...] AZUL GORMAN Within 1 to [address] [place] [address] [place] Cortez [address] Business (1) Additional Instructions: For urine culture results and stool examination results Patient Education Food Choices to Help Relieve Diarrhea, Adult Diarrhea, Adult, Tinp-fn-Jigy Urinary Tract Infection, Adult, Oljy-ck-Cppq Problem List/Past Medical History Ongoing Acute UTI At risk for falls Bipolar disorder, manic, moderate BMI 27.0-27.9,adult Charcot's joint of right foot Chronic ankle pain Chronic constipation Chronic obstructive pulmonary disease Chronic pain in right (more content not included)... Normal [facility] Comment on above: Result Comment: Elec tronically Signed By: Carlos Coates MD\.br\Date and Time Signed: 04/11/24 16:19 EST ED Patient Summaryon 024 ED Patient Summary ED Patient Summary [address] [address] Patient Discharge Instructions Person Information Name: MAEGAN DYE Age: 74 Years Arrival Date: 04/11/2024 12:38:22 Discharge Diagnosis: 1:Diarrhea Primary Care Physician: AZUL GORMAN CNP Provider Information Primary Provider: Carlos Coates MD Advanced Supervisor Boiler Repair:None The exam and treatment you received in the Emergency Department were for an urgent problem and are not intended as complete care. It is important that you follow up with a doctor, nurse practitioner, or physician???s bookkeeping assistant for ongoing care. If your symptoms [...] Instructions: With: Address: When: [place] [address] Business (1) Within 1 to 2 days Comments: For urine culture results and stool examination results In the event that this physician does not participate in your insurance network, please consult with your insurance company to find a nearby participating provider. Patient Education Materials: Food Choices to Help Relieve Diarrhea, Adult; Diarrhea, Adult, Ectl-qa-Uhfz; Urinary Tract Infection, Adult, Azwm-tr-Oswd A MESSAGE TO ALL PATIENTS REGARDING OPIOIDS PRESCRIPTION OPIOIDS: WHAT YOU NEED TO KNOW Prescription opioids can be used to help relieve ypfdpnew-lc-cokkyk pain and are often prescribed following a [...] learn abou (more content not included)... Normal [facility] HEMATOLOGYOrdered By: SYSTEM SYSTEM on 04-11-2024 Basophils/100 [...] (U) 3+ /HPF Abnormal Trace [facility] Comment on above: Performed By: #### 4 [id number] #### [facility] [address] [place] [address] Bilirubin Ql (U) Negative Normal Negative [facility] Comment on above: Performed By: #### 4 [id number] #### [facility] [address] [place] [address] Clarity (U) Clear Normal Clear [facility] Comment on above: Performed By: #### 4 [id number] #### [facility] [address] [place] [address] Color (U) Light-Yellow Normal Yellow [facility] Comment on above: Result Comment: Micr oscopic readings are only performed on those samples that meet specific criteria set forth by [facility]. Performed By: #### 4 [id number] #### [facility] [address] [place] [address] Epithelial cells.renal Computer assisted Ql (U) 0-2 Abnormal [facility] Comment on above: Performed By: #### 4 [id number] #### [facility] [address] [place] [address] Epithelial cells.squamous Auto (Urine sed) [#/Area] 0-2 Invalid Interpretation Code [facility] Comment on above: Performed By: #### 4 [id number] #### [facility] [address] [place] [address] Glucose Ql (U) Negative Normal Negative [facility] Comment on above: Performed By: #### 4 [id number] #### [facility] [address] [place] [address] Hemoglobin Auto test strip (U) [Mass/Vol] Negative Normal Negative [facility] Comment on above: Performed By: #### 4 [id number] #### [facility] [address] [place] [address] Ketones Auto test strip Ql (U) Negative Normal Negative [facility] Comment on above: Performed By: #### 4 [id number] #### [facility] [address] [place] [address] Leukocyte esterase Auto test strip Ql (U) 75 Gretchen/uL Abnormal Negative [facility] Comment on above: Performed By: #### 4 [id number] #### [facility] [address] [place] [address] Mucus Auto Ql (U) Trace Normal Negative [facility] Comment on above: Performed By: #### 4 [id number] #### [facility] [address] [place] [address] Nitrite Auto test strip Ql (U) Negative Normal Negative [facility] Comment on above: Performed By: #### 4 [id number] #### [facility] [address] [place] [address] pH (U) 6.0 [pH] Invalid Interpretation Code 5.0-9.0 [facility] Comment on above: Performed By: #### 4 [id number] #### [facility] [address] [place] [address] Protein Ql (U) Negative Normal Negative [facility] Comment on above: Performed By: #### 4 [id number] #### [facility] [address] [place] [address] RBC Ql (U) 0-3 Normal 0-3 [facility] Comment on above: Performed By: #### 4 [id number] #### [facility] [address] [place] [address] Specific gravity (U) [Rel density] 1.006 Invalid Interpretation Code 1.005-1.03 0 [facility] Comment on above: Performed By: #### 4 [id number] #### [facility] [address] [place] [address] Urobilinogen (U) [Mass/Vol] Negative Normal Negative [facility] Comment on above: Performed By: #### 4 [id number] #### [facility] [address] [place] [address] WBC Auto (Urine sed) [#/Area] 0-5 Normal 0-5 [facility] Comment on above: Performed By: #### 4 [id number] #### [facility] [address] [place] [address] Type of Urine collection method Clean Catch Normal [facility] Comment on above: Performed By: #### 4 [id number] #### [facility] [address] [place] [address] URINALYSISOrdered By: SYSTEM SYSTEM on 04-11-2024 Bacteria Auto Ql (U) 3+ /HPF Invalid Interpretation Code Trace/HPF [facility] UA Auto SS Bilirubin Ql (U) Negative Normal Negativemg /dL [facility] UA Auto SS Clarity (U) Clear (04/11/24 1:25 PM) Normal Clear [facility] UA Auto SS Color (U) Light-Yellow 1 (04/11/24 1:25 PM) Normal Yellow [facility] Auto SS Comment on above: Interpretive Data: M icroscopic readings are only performed on those samples that meet specific criteria set forth by [facility]. Epithelial cells.renal Computer assisted Ql (U) [...] PM) Invalid Interpretation Code 1.005 - 1.030 [facility] [place] UA Auto SS Urobilinogen (U) [Mass/Vol] Negative Normal Negativemg /dL [facility] [place] UA Auto SS WBC Auto (Urine sed) [#/Area] 0-5 graded/HPF Normal 0-5graded/ HPF [facility] [place] UA Auto SS URINALYSISOrdered By: Carlos gomez on 04-11-2024 UA Spec Desc Clean Catch (04/11/24 1:25 PM) Normal [facility] [place] UA Auto SS Work Phone: eGFRon 04-11-2024 eGFR 47 mL/min/1.73 m2 Low >=59 [facility] Comment on above: Performed By: #### 1 [id number] #### [facility] [address] [place] [address] ED Clinical Summaryon 2023 ED Clinical Summary ED Clinical Summary [address] [address] ED Clinical Summary Person Information Name: MAEGAN DYE/[facility] Age: 74 Years : 1950 Sex: Female Language: Peruvian PCP: AZUL GORMAN CNP Marital Status: Visit [...] ADDRESS: [address] [facility] [id number] PHYS DOC NOTES: MEDICAL INFORMATION: Prescriptions Given: [...] day. fluticasone nasal (fluticasone 0.05 mg/inh Nasal [place]) 2 Sprays Nasal Inhalation every day. each [...] Dysuria Follow up: With: Address: When: [place] [address] Business (1) In 3 days 04/11/2024 DIAGNOSIS: Dysuria Normal [facility] ED Note-Physicianon 04-08-20 ED Note-Physician ED Note-Physician Basic Information Time Seen: Vic BYRD Malick 04/08/2024 11:51 Chief Complaint pt has lower [...] AZUL GORMAN In 3 days 04/11/2024 [place] [address] Business (1) Additional Instructions: Patient Education Dysuria [...] made to ensure accuracy, however, inadvertently computerized fisheries director mistakes may be present. Appropriate healthcare PPE [...] Vitamin D deficiency Historical Accidental fall Agent [place] ASTHMA Benzodiazepine withdrawal Bipolar disorder Callus of [...] femur ORIF (more content not included)... Normal [facility] Comment on above: Result Comment: Elec tronically Signed By: Malick Ho PA-C\.br\Date and Time Signed: 04/08/24 14:01 EST\.br\Electronically Co-Signed By: Didier Hooks M.D.\.br\Date and Time Co-Signed: 04/08/24 18:29 EST ED Patient Summaryon 024 ED Patient Summary ED Patient Summary [address] [address] Patient Discharge Instructions Person Information Name: MAEGAN DYE Age: 74 Years Arrival Date: 04/08/2024 11:39:36 Discharge Diagnosis: Dysuria Primary Care Physician: AZUL GORMAN CNP Provider Information Primary Provider: Didier Hooks M.D. Advanced Supervisor Boiler Repair:Malick Ho PA-C The exam and treatment you received in the Emergency Department were for an urgent problem and are not intended as complete care. It is important that you follow up with a doctor, nurse practitioner, or physician???s bookkeeping assistant for ongoing care. If your symptoms [...] Follow-up Instructions: With: Address: When: AZUL GORMAN [address] [place], [place] [id number] Business (1) In 3 days 04/11/2024 In the event that this physician does not participate in your insurance network, please consult with your insurance company to find a nearby participating provider. Patient Education Materials: Dysuria A MESSAGE TO ALL PATIENTS REGARDING OPIOIDS PRESCRIPTION OPIOIDS: WHAT YOU NEED TO KNOW Prescription opioids can be used to help relieve iyesudmk-tr-zmvpje pain and are often prescribed following a [...] be struggling with addiction, tell your health pet caregiver and ask for guidance o (more content not included)... Normal [facility] UA with Cult Rflxon 04-08-20 24 Bilirubin Ql (U) Negative Normal Negative [facility] Comment on above: Performed By: #### 4 [id number] #### [facility] [address] [place] [address] Clarity (U) Clear Normal Clear [facility] Comment on above: Performed By: #### 4 [id number] #### [facility] [address] [place] [address] Color (U) Colorless Abnormal Yellow [facility] Comment on above: Result Comment: Micr oscopic readings are only performed on those samples that meet specific criteria set forth by [facility]. Performed By: #### 4 [id number] #### [facility] [address] [place] [address] Glucose Ql (U) Negative Normal Negative [facility] Comment on above: Performed By: #### 4 [id number] #### [facility] [address] [place] [address] Hemoglobin Auto test strip (U) [Mass/Vol] Negative Normal Negative [facility] Comment on above: Performed By: #### 4 [id number] #### [facility] [address] [place] [address] Ketones Auto test strip Ql (U) Negative Normal Negative [facility] Comment on above: Performed By: #### 4 [id number] #### [facility] [address] [place] [address] Leukocyte esterase Auto test strip Ql (U) Negative Normal Negative [facility] Comment on above: Performed By: #### 4 [id number] #### [facility] [address] [place] [address] Nitrite Auto test strip Ql (U) Negative Normal Negative [facility] Comment on above: Performed By: #### 4 [id number] #### [facility] [address] [place] [address] pH (U) 7.0 [pH] Invalid Interpretation Code 5.0-9.0 [facility] Comment on above: Performed By: #### 4 [id number] #### [facility] [address] [place] [address] Protein Ql (U) Negative Normal Negative [facility] Comment on above: Performed By: #### 4 [id number] #### [facility] [address] [place] [address] Specific gravity (U) [Rel density] 1.003 Invalid Interpretation Code 1.005-1.03 0 [facility] Comment on above: Performed By: #### 4 [id number] #### [facility] [address] [place] [address] Urobilinogen (U) [Mass/Vol] Negative Normal Negative [facility] Comment on above: Performed By: #### 4 [id number] #### [facility] [address] [place] [address] Type of Urine collection method Clean Catch Normal [facility] Comment on above: Performed By: #### 4 [id number] #### [facility] [address] [place] [address] URINALYSISOrdered By: SYSTEM SYSTEM on 04-08-2024 Bilirubin Ql (U) Negative Normal Negativemg /dL [facility] [place] UA Auto SS Clarity (U) Clear (04/08/24 12:06 PM) Normal Clear [facility] UA Auto SS Color (U) Colorless 1 *ABN* (04/08/24 12:06 PM) Invalid Interpretation Code Yellow [facility] UA Auto SS Comment on above: Interpretive Data: M icroscopic readings are only performed on those samples that meet specific criteria set forth by [facility]. Glucose Ql (U) Negative Normal Negativemg [...] Desc Clean Catch (04/08/24 12:06 PM) Normal [facility] UA Auto SS Work Phone: ED Clinical Summaryon 2023 ED Clinical Summary ED Clinical Summary [place] [address] ED Clinical Summary Person Information Name: MAEGAN DYE/[facility] Age: 74 Years : 1950 Sex: Female Language: Peruvian PCP: AZUL GORMAN CNP Marital Status: Visit [...] ADDRESS: [address] [facility] [id number] PHYS DOC NOTES: MEDICAL INFORMATION: Prescriptions Given: [...] day. fluticasone nasal (fluticasone 0.05 mg/inh Nasal [place]) 2 Sprays Nasal Inhalation every day. each [...] Dysuria Follow up: With: Address: When: [place] [address] Business (1) In 3 days 04/10/2024 Comments: Return to the emergency room if your symptoms get worse, fever, vomiting or any new symptoms DIAGNOSIS: 1:Dysuria Normal [facility] ED Note-Physicianon 04-07-20 ED Note-Physician ED Note-Physician [...] and Complexity of Problems Differential Diagnosis: [] [facility] Data External documents reviewed: [] My [...] GORMAN In 3 days 04/10/2024 EST [address] [place] [address] [facility] (1) Additional Instructions: Return to the emergency [...] Vitamin D deficiency Historical Accidental fall Agent [place] ASTHMA Benzodiazepine withdrawal Bipolar disorder Callus of [...] w/ UD (more content not included)... Normal [facility] Comment on above: Result Comment: Elec tronically Signed By: Neva Newton, Didier Martins\.br\Date and Time Signed: 04/07/24 17:55 EST ED Patient Summaryon 024 ED Patient Summary ED Patient Summary [address] [address] Patient Discharge Instructions Person Information Name: MAEGAN DYE Age: 74 Years Arrival Date: 04/07/2024 16:36:24 Discharge Diagnosis: 1:Dysuria Primary Care Physician: AZUL GORMAN CNP Provider Information Primary Provider: Didier Hooks M.D. Advanced Supervisor Boiler Repair:None The exam and treatment you received in the Emergency Department were for an urgent problem and are not intended as complete care. It is important that you follow up with a doctor, nurse practitioner, or physician???s bookkeeping assistant for ongoing care. If your symptoms [...] Follow-up Instructions: With: Address: When: AZUL GORMAN [address] [place] [address] [place] [address] Business (1) In 3 days 04/10/2024 Comments: [...] opioids can be used to help relieve ptwwmspj-ic-mdqypo pain and are often prescribed following a [...] believe you (more content not included)... Normal [facility] UA with Cult Rfl[employer] 04-07-20 24 Bilirubin Ql (U) Negative Normal Negative [facility] Comment on above: Performed By: #### 4 [id number] #### [facility] [address] [place] [address] Clarity (U) Clear Normal Clear [facility] Comment on above: Performed By: #### 4 [id number] #### [facility] [address] [place] [address] Color (U) Colorless Abnormal Yellow [facility] Comment on above: Result Comment: Micr oscopic readings are only performed on those samples that meet specific criteria set forth by [facility]. Performed By: #### 4 [id number] #### [facility] [address] [place] [address] Glucose Ql (U) Negative Normal Negative [facility] Comment on above: Performed By: #### 4 [id number] #### [facility] [address] [place] [address] Hemoglobin Auto test strip (U) [Mass/Vol] Negative Normal Negative [facility] Comment on above: Performed By: #### 4 [id number] #### [facility] [address] [place] [address] Ketones Auto test strip Ql (U) Negative Normal Negative [facility] Comment on above: Performed By: #### 4 [id number] #### [facility] [address] [place] [address] Leukocyte esterase Auto test strip Ql (U) Negative Normal Negative [facility] Comment on above: Performed By: #### 4 [id number] #### [facility] [address] [place] [address] Nitrite Auto test strip Ql (U) Negative Normal Negative [facility] Comment on above: Performed By: #### 4 [id number] #### [facility] [address] [place] [address] pH (U) 5.5 [pH] Invalid Interpretation Code 5.0-9.0 [facility] Comment on above: Performed By: #### 4 [id number] #### [facility] [address] [place] [address] Protein Ql (U) Negative Normal Negative [facility] Comment on above: Performed By: #### 4 [id number] #### [facility] [address] [place] [address] Specific gravity (U) [Rel density] 1.003 Invalid Interpretation Code 1.005-1.03 0 [facility] Comment on above: Performed By: #### 4 [id number] #### [facility] [address] [place] [address] Urobilinogen (U) [Mass/Vol] Negative Normal Negative [facility] Comment on above: Performed By: #### 4 [id number] #### [facility] [address] [place] [address] Type of Urine collection method Clean Catch Normal [facility] Comment on above: Performed By: #### 4 [id number] #### [facility] [address] [place] [address] URINALYSISOrdered By: SYSTEM SYSTEM on 04-07-2024 Bilirubin Ql (U) Negative Normal Negativemg /dL [facility] UA Auto SS Clarity (U) Clear (04/07/24 5:29 PM) Normal Clear [facility]A Auto SS Color (U) Colorless 1 *ABN* (04/07/24 5:29 PM) Invalid Interpretation Code Yellow [facility]A Auto SS Comment on above: Interpretive Data: M icroscopic readings are only performed on those samples that meet specific criteria set forth by [facility]. Glucose Ql (U) Negative Normal Negativemg [...] /dL [facility] UA Auto SS pH (U) 5.5 *NA* (04/07/24 5:29 PM) Invalid Interpretation Code 5.0 - 9.0 [facility] UA Auto SS Protein Ql (U) Negative Normal Negativemg /dL [facility] UA Auto SS Specific gravity (U) [Rel density] 1.003 *NA* (04/07/24 5:29 PM) Invalid Interpretation Code 1.005 - 1.030 [facility] UA Auto SS Urobilinogen (U) [Mass/Vol] Negative Normal Negativemg /dL [facility] [place] UA Auto SS URINALYSISOrdered By: Didier Hooks on 04-07-2024 UA Spec Desc Clean Catch (04/07/24 5:29 PM) Normal [facility] [place] UA Auto SS BMPon 04-04-2024 Anion gap [Moles/Vol] 8 mmol/L Normal 6-[address] [facility] Comment on above: Performed By: #### 2 [id number] #### [facility] [address] [place] [address] Calcium [Mass/Vol] 9.0 mg/dL Normal 8.9-11.1 [facility] Comment on above: Performed By: #### 2 [id number] #### [facility] [address] [place] [address] Chloride [Moles/Vol] 100 mmol/L Low 101-111 [facility] Comment on above: Performed By: #### 2 [id number] #### [facility] [address] [place] [address] CO2 [Moles/Vol] 34 mmol/L High 21-31 [facility] Comment on above: Performed By: #### 2 [id number] #### [facility] [address] [place] [address] Creatinine [Mass/Vol] 1.0 mg/dL Normal 0.5-1.3 [facility] Comment on above: Performed By: #### 2 [id number] #### [facility] [address] [place] [address] Glucose [Mass/Vol] 159 mg/dL Normal 55-199 [facility] Comment on above: Performed By: #### 2 [id number] #### [facility] [address] [place] [address] Potassium [Moles/Vol] 3.6 mmol/L Normal 3.5-5.3 [facility] Comment on above: Performed By: #### 2 [id number] #### [facility] [address] [place] [address] Sodium [Moles/Vol] 138 mmol/L Normal 135-145 [facility] Comment on above: Performed By: #### 2 [id number] #### [facility] [address] [place] [address] Urea nitrogen [Mass/Vol] 8 mg/dL Normal 5-21 [facility] Comment on above: Performed By: #### 2 [id number] #### [facility] [address] [place] [address] Urea nitrogen/Creatinine [Mass ratio] 8 No Units Low 10-20 [facility] Comment on above: Performed By: #### 2 [id number] #### [facility] [address] [place] [address] CBC w/ Auto Diffon 04-04-202 4 Basophils/100 WBC (Bld) 0.3 % Normal 0.0-2.0 [facility] Comment on above: Performed By: #### 2 [id number] #### [facility] [address] [place] [address] Basophils/Leukocytes Auto (Bld) [Pure # fraction] 0.0 E9/L Normal 0.0-0.2 [facility] Comment on above: Performed By: #### 2 [id number] #### [facility] [address] [place] [address] Eosinophils (Bld) [#/Vol] 0.2 E9/L Normal 0.0-0.5 [facility] Comment on above: Performed By: #### 2 [id number] #### [facility] [address] [place] [address] Eosinophils/100 WBC (Bld) 3.0 % Normal 0.0-8.0 [facility] Comment on above: Performed By: #### 2 [id number] #### [facility] [address] [place] [address] Erythrocyte distribution width (RBC) [Ratio] 13.5 % Normal 10.9-14.2 [facility] Comment on above: Performed By: #### 2 [id number] #### [facility] [address] [place] [address] Hematocrit (Bld) [Volume fraction] 38.9 % Normal 34.0-46.0 [facility] Comment on above: Performed By: #### 2 [id number] #### [facility] [address] [place] [address] Hemoglobin (Bld) [Mass/Vol] 12.8 g/dL Normal 12.0-16.0 [facility] Comment on above: Performed By: #### 2 [id number] #### [facility] [address] [place] [address] Lymphocytes (Bld) [#/Vol] 1.2 E9/L Normal 1.0-4.0 [facility] Comment on above: Performed By: #### 2 [id number] #### [facility] [address] [place] [address] Lymphocytes/100 WBC (Bld) 21.1 % Normal 14.0-50.0 [facility] Comment on above: Performed By: #### 2 [id number] #### [facility] [address] [place] [address] MCH (RBC) [Entitic mass] 29.5 pg Normal 27.0-34.0 [facility] Comment on above: Performed By: #### 2 [id number] #### [facility] [address] [place] [address] MCHC (RBC) [Mass/Vol] 32.9 g/dL Normal 31.4-36.0 [facility] Comment on above: Performed By: #### 2 [id number] #### [facility] [address] [place] [address] MCV (RBC) [Entitic vol] 89.8 fL Normal 80.0-100.0 [facility] Comment on above: Performed By: #### 2 [id number] #### [facility] [address] [place] [address] Monocytes (Bld) [#/Vol] 0.6 E9/L Normal 0.2-1.0 [facility] Comment on above: Performed By: #### 2 [id number] #### [facility] [address] [place] [address] Neutrophils (Bld) [#/Vol] 3.9 E9/L Normal 2.0-7.5 [facility] Comment on above: Performed By: #### 2 [id number] #### [facility] [address] [place] [address] Neutrophils/100 WBC (Bld) 66.0 % Normal 36.0-75.0 [facility] Comment on above: Performed By: #### 2 [id number] #### [facility] [address] [place] [address] Platelet mean volume (Bld) [Entitic vol] 7.2 fL Normal 6.4-10.8 [facility] Comment on above: Performed By: #### 2 [id number] #### [facility] [address] [place] [address] Platelets (Bld) [#/Vol] 198.0 E9/L Normal 150.0-500. 0 [facility] Comment on above: Performed By: #### 2 [id number] #### [facility] [address] [place] [address] RBC (Bld) [#/Vol] 4.3 E12/L Normal 4.3-5.9 [facility] Comment on above: Performed By: #### 2 [id number] #### [facility] [address] [place] [address] WBC corrected for nucl RBC Auto (Bld) [#/Vol] 5.9 E9/L Normal 4.0-11.0 [facility] Comment on above: Performed By: #### 2 [id number] #### [facility] [address] [place] [address] CHEMISTRYOrdered By: SYSTEM SYSTEM on 04-04-2024 Anion [...] Instructions For Use, Siobhan Prashant, December 2017) Urea nitrogen [Mass/Vol] 8 mg/dL Normal 5 - 21 mg/dL Remisol Chem Urea nitrogen/Creatinine [Mass ratio] 8 mg/mg Low 10 - 20 Remisol Chem ED Clinical Summaryon 2023 ED Clinical Summary ED Clinical Summary [place] [id number] ED Clinical Summary Person Information Name: MAEGAN DYE/[facility] Age: 74 Years : 1950 Sex: Female Language: Peruvian PCP: AZUL GORMAN CNP Marital Status: Phone: Visit Id: Visit Reason: Weakness or fatigue; [...] 04/04/2024 15:21:11 04/04/2024 15:21:11 04/04/2024 15:21:11 ADDRESS: [address] [facility] [id number] [facility] DOC NOTES: MEDICAL INFORMATION: Prescriptions Given: Medications [...] day. fluticasone nasal (fluticasone 0.05 mg/inh Nasal [place]) 2 Sprays Nasal Inhalation every day. each [...] Instructions: Weakness Follow up: With: Address: When: [place] [address] Business (1) In 3 days 04/07/2024 DIAGNOSIS: Weakness Normal [facility] ED Note-Physicianon 04-04-20 ED Note-Physician ED Note-Physician Basic Information Time Seen: Malick Ho PA-C 04/04/2024 12:57 Chief Complaint states she is [...] GORMAN In 3 days 04/07/2024 EST [address] [place] [address] Business (1) Additional Instructions: Patient Education Weakness Attestation [...] made to ensure accuracy, however, inadvertently computerized fisheries director mistakes may be present. Appropriate healthcare PPE [...] Vitamin D deficiency Historical Accidental fall Agent [place] ASTHMA Benzodiazepine withdrawal Bipolar disorder Callus of [...] w/ UD (more content not included)... Normal [facility] Comment on above: Result Comment: Elec tronically Signed By: Malick Ho PA-C\.br\Date and Time Signed: 04/04/24 15:18 EST\.br\Electronically Co-Signed By: Didier Hooks M.D.\.br\Date and Time Co-Signed: 04/04/24 20:05 EST ED Patient Summaryon 024 ED Patient Summary ED Patient Summary [place] [address] Patient Discharge Instructions Person Information Name: MAEGAN DYE Age: 74 Years Arrival Date: 04/04/2024 12:43:15 Discharge Diagnosis: Weakness Primary Care Physician: AZUL GORMAN CNP Provider Information Primary Provider: Didier Hooks M.D. Advanced Supervisor Boiler Repair:Malick Ho PA-C The exam and treatment you received in the Emergency Department were for an urgent problem and are not intended as complete care. It is important that you follow up with a doctor, nurse practitioner, or physician???s bookkeeping assistant for ongoing care. If your symptoms [...] Follow-up Instructions: With: Address: When: [place] [address] Business (1) In 3 days 04/07/2024 In the event that this physician does not participate in your insurance network, please consult with your insurance company to find a nearby participating provider. Patient Education Materials: Weakness A MESSAGE TO ALL PATIENTS REGARDING OPIOIDS PRESCRIPTION OPIOIDS: WHAT YOU NEED TO KNOW Prescription opioids can be used to help relieve osfzcmsa-nw-nvkjnp pain and are often prescribed following a [...] be struggling with addiction, tell your health pet caregiver and ask for guidance (more content not included)... Normal [facility] Extra Blueon 04-04-2024 Tube Collected Plasma Yes Invalid Interpretation Code [facility] Comment on above: Performed By: #### 1 [id number] #### [facility] [address] [place] [address] HEMATOLOGYOrdered By: SYSTEM SYSTEM on 04-04-2024 Basophils/100 [...] Troponin HS 2.80 pg/mL Low 10.10-27.1 0 [facility] Comment on above: Result Comment: The 95% CI (Confidence Interval) PPV (Positive Predictive Value) for myocardial infarction in females is 38 pg/mL, in males 51 pg/mL. The results should be used in conjunction with clinical conditions of myocardial infarction. (Access High Sensitivity Troponin I Instructions For Use, Siobhan I3 Precision, December 2017) Performed By: #### 1 [id number] #### [facility] [address] [place] [address] UA with Cult Rflxon 04-04-20 24 Bilirubin Ql (U) Negative Normal Negative [facility] Comment on above: Performed By: #### 4 [id number] #### [facility] [address] [place] [address] Clarity (U) Clear Normal Clear [facility] Comment on above: Performed By: #### 4 [id number] #### [facility] [address] [place] [address] Color (U) Light-Yellow Normal Yellow [facility] Comment on above: Result Comment: Micr oscopic readings are only performed on those samples that meet specific criteria set forth by [facility]. Performed By: #### 4 [id number] #### [facility] [address] [place] [address] Glucose Ql (U) Negative Normal Negative [facility] Comment on above: Performed By: #### 4 [id number] #### [facility] [address] [place] [address] Hemoglobin Auto test strip (U) [Mass/Vol] Negative Normal Negative [facility] Comment on above: Performed By: #### 4 [id number] #### [facility] [address] [place] [address] Ketones Auto test strip Ql (U) Negative Normal Negative [facility] Comment on above: Performed By: #### 4 [id number] #### [facility] [address] [place] [address] Leukocyte esterase Auto test strip Ql (U) Negative Normal Negative [facility] Comment on above: Performed By: #### 4 [id number] #### [facility] [address] [place] [address] Nitrite Auto test strip Ql (U) Negative Normal Negative [facility] Comment on above: Performed By: #### 4 [id number] #### [facility] [address] [place] [address] pH (U) 6.0 [pH] Invalid Interpretation Code 5.0-9.0 [facility] Comment on above: Performed By: #### 4 [id number] #### [facility] [address] [place] [address] Protein Ql (U) Negative Normal Negative [facility] Comment on above: Performed By: #### 4 [id number] #### [facility] [address] [place] [address] Specific gravity (U) [Rel density] 1.007 Invalid Interpretation Code 1.005-1.03 0 [facility] Comment on above: Performed By: #### 4 [id number] #### [facility] [address] [place] [address] Urobilinogen (U) [Mass/Vol] Negative Normal Negative [facility] Comment on above: Performed By: #### 4 [id number] #### [facility] [address] [place] [address] Type of Urine collection method Clean Catch Normal [facility] Comment on above: Performed By: #### 4 [id number] #### [facility] [address] [place] [address] URINALYSISOrdered By: SYSTEM SYSTEM on 04-04-2024 Bilirubin Ql (U) Negative Normal Negativemg /dL [facility] [place] UA Auto SS Clarity (U) Clear (04/04/24 1:26 PM) Normal Clear [facility] [place] UA Auto SS Color (U) Light-Yellow 1 (04/04/24 1:26 PM) Normal Yellow [facility] [place] UA Auto SS Comment on above: Interpretive Data: M icroscopic readings are only performed on those samples that meet specific criteria set forth by [facility]. Glucose Ql (U) Negative Normal Negativemg /dL [facility] [place] UA Auto SS Hemoglobin Auto test strip (U) [Mass/Vol] Negative Normal Negativemg /dL FT UA Auto SS Ketones Auto test strip Ql (U) Negative Normal Negativemg /dL FT UA Auto SS Leukocyte esterase Auto test strip Ql (U) Negative Normal NegativeLe u/uL FT UA Auto SS Nitrite Auto test strip Ql (U) Negative Normal Negativemg /dL [facility] [place] UA Auto SS pH (U) 6.0 *NA* (04/04/24 1:26 PM) Invalid Interpretation Code 5.0 - 9.0 [facility] [place] UA Auto SS Protein Ql (U) Negative Normal Negativemg /dL [facility] [place] UA Auto SS Specific gravity (U) [Rel density] 1.007 *NA* (04/04/24 1:26 PM) Invalid Interpretation Code 1.005 - 1.030 [facility] [place] UA Auto SS Urobilinogen (U) [Mass/Vol] Negative Normal Negativemg /dL [facility] [place] UA Auto SS URINALYSISOrdered By: Malick Ho on 04-04-2024 UA Spec Desc Clean Catch (04/04/24 1:26 PM) Normal [facility] [place] UA Auto SS Work Phone: XR Chest [...] mGy = . DAP = . Normal [facility] eGFRon 04-04-2024 eGFR 58 mL/min/1.73 m2 Low >=59 [facility] Comment on above: Performed By: #### 1 [id number] #### [facility] [address] [place] [id number] Urine Cultureon 03-31-2024 Bacteria identified Cx Nom (U) Reason for Exam Acute UTI Urine >100,000 colonies/ml mixed bacterial skin contaminants including mixed gram negative bacilli - 2 Days PERFORMED BY: [facility] [address] [place] [address] PATHOLOGIST COIN MACHINE MECHANIC CORIE SILVA M.D. Normal [facility] Comment on above: Performed By: #### C UU, ADDONUAPLUS #### [address] ED Clinical Summaryon 2023 ED Clinical Summary ED Clinical Summary [facility] [address] [place], [place] [address] ED Clinical Summary Person Information Name: MAEGAN DYE/[facility] Age: 74 Years : 1950 Sex: Female Language: Peruvian PCP: AZUL GORMAN CNP Marital Status: Phone: [phone] Visit Id: Visit Reason: Catheter check; CATH. [...] 03/18/2024 17:17:51 03/18/2024 17:17:51 03/18/2024 17:17:51 ADDRESS: [address] [place] [address] [address] [facility] [id number] PHYS DOC NOTES: MEDICAL INFORMATION: Prescriptions Given: [...] day. fluticasone nasal (fluticasone 0.05 mg/inh Nasal [place]) 2 Sprays Nasal Inhalation every day. each [...] PATIENT EDUCATION INFORMATION: Instructions: Choi Catheter Care, Female-[facility] [place] (Custom) Follow up: With: Address: When: [place] [address] Business (1) In 3 days DIAGNOSIS: 1:Problem with Choi catheter Normal [facility] ED Note-Nursingon 03-18-2024 ED Note-Nursing ED Note-Nursing pt refused choi at this time. sandy cotton made aware. Normal [facility] ED Note-Nursing ED Note-Nursing pt peed with no complications. no need for choi catheter. Normal [facility] ED Note-Physicianon 03-18-20 ED Note-Physician ED Note-Physician [...] Information AZUL GORMAN In 3 days [address] [place] [address] Business (1) Additional Instructions: Patient Education Choi Catheter Care, Female-[facility] [place] (Custom) Attestation Patient was treated and evaluated by the Physician Automatic Nailing Machine Operator. The attending physician was in the Emergency [...] Vitamin D deficiency Historical Accidental fall Agent [place] ASTHMA Benzodiazepine withdrawal Bipolar disorder Callus of [...] muscle roberto (more content not included)... Normal [facility] Comment on above: Result Comment: Elec tronically Signed By: Ana Layton PA-C\.br\Date and Time Signed: 03/18/24 17:03 EDT\.br\Electronically Co-Signed By: Ana Layton PA-C\.br\Date and Time Co-Signed: 03/18/24 17:32 EDT\.br\Electronically Co-Signed By: Didier Hooks M.D.\.br\Date and Time Co-Signed: 03/18/24 17:35 EDT ED Patient Summaryon 024 ED Patient Summary ED Patient Summary [place] [id number] Patient Discharge Instructions Person Information Name: MAEGAN DYE Age: 74 Years Arrival Date: 03/18/2024 15:50:15 Discharge Diagnosis: 1:Problem with Choi catheter Primary Care Physician: AZUL GORMAN CNP Provider Information Primary Provider: Didier Hooks M.D. Advanced Supervisor Boiler Repair:Ana Layton PA-C The exam and treatment you received in the Emergency Department were for an urgent problem and are not intended as complete care. It is important that you follow up with a doctor, nurse practitioner, or physician???s bookkeeping assistant for ongoing care. If your symptoms become worse or you do not improve as expected and you are unable to reach your usual health care provider, you should return to the Emergency Department. We are available 24 hours a day. MAEGAN DYE has been given the following list of patient education materials, prescriptions and follow-up instructions: Follow-up Instructions: With: Address: When: [place] [address] Business (1) In 3 days In the event that this physician does not participate in your insurance network, please consult with your insurance company to find a nearby participating provider. Patient Education Materials: [facility], [facility] [place] (Custom) A MESSAGE TO ALL PATIENTS REGARDING OPIOIDS PRESCRIPTION OPIOIDS: WHAT YOU NEED TO KNOW Prescription opioids can be used to help relieve qvpzhmyf-zy-odndml pain and are often prescribed following a [...] your hea (more content not included)... Normal [facility] Discharge Note-Nursingon Discharge Note-Nursing Discharge Note-Kaylynn mae MARNIE MAEGAN :1950 Visit Date:03/14/2024 Inpatient Discharge Instructions Your [...] tablet) fluticasone nasal (fluticasone 0.05 mg/inh Nasal [place]) loratadine (loratadine 10 mg oral capsule) olanzapine [...] Keep scheduled appointment on . Where: [address] [place] [address]- [facility] (1) Medications What How Much When Why Instructions Next Dose New amoxicillin-clavulanate (amoxicillin-clavulanate 875 mg-125 mg Tab) 1 Tablets By Mouth 2 times a day Catheter-associated urinary tract infection Duration: 6 Days Pickup at [id number] Tonight at 9:00 PM Unchanged amlodipine (amLODIPine [...] fluticasone nasal (fluticasone 0.05 mg/ inh Nasal [place]) 2 Sprays Nasal Inhalation Every day each [...] as nee (more content not included)... Normal [facility] Inpatient Clinical Summaryon 03-16-2024 Inpatient Clinical Summary Inpatient Clinical Summary [address] [address] Clinical Summary Person Information: Name: MAEGAN DYE Age: 74 Years : 1950 Sex: Female PCP: AZUL GORMAN CNP Marital Status: Phone: [phone] Race: White Ethnicity: Non- or Language: Peruvian Visit Id: Visit Reason: Closed head injury without LOC; Jaw pain; Fall; FELL HIT FACE Speciality: Acuity: Enc Type: Inpatient Med Service: Medical Arrival: 03/14/2024 04:51:11 Discharge: Dispo Type: Admitted as IP to this Hosp Address: [address] [place] [address] [id number] Provider Notes: Diagnosis: 3:Atelectasis; 4:Catheter-associated urinary tract [...] day. fluticasone nasal (fluticasone 0.05 mg/inh Nasal [place]) 2 Sprays Nasal Inhalation every day. each [...] Physician: Follow up: With: Address: When: AZUL GORMAN [address] [place] [address] Business (1) 03/23/2024 1:30 PM Comments: Keep scheduled appointment on . Patient Education Information: Head (more content not included)... Normal [facility] Inpatient Patient Summaryon 03-16-2024 Inpatient Patient Summary Inpatient Patient Summary [address] [address] Patient Discharge Instructions PERSON INFORMATION [...] results: None Follow up: With: Address: When: [place] [address] Business (1) 03/23/2024 1:30 PM Comments: Keep scheduled appointment [...] DURING YOUR HOSPITAL STAY New Medications [id number], [address] [place] [phone], [phone] amoxicillin-clavulanate (amoxicillin-clavulanate 875 mg-125 mg Tab) 1 [...] Dose: fluticasone nasal (fluticasone 0.05 mg/inh Nasal [place]) 2 Sprays Nasal Inhalation every day. each [...] ext Dose: (more content not included)... Normal [facility] Interdisciplinary Note - Maximus e Manageron 03-16-2024 Interdisciplinary Note - Live Out Nanny Interdisciplinary Note - Live Out Nanny CRM to room 301 Patient is awake, [...] white board updated. CRM following DC today [facility] Comment on above: Result Comment: Elec tronically Signed By: Latasha Hernández\.br\Date and Time Signed: 03/16/24 09:23 EDT BMPon 03-15-2024 Anion gap [Moles/Vol] 7 mmol/L Normal 6-16 [facility] Comment on above: Performed By: #### 2 [id number] #### [facility] [address] [place] [address] Calcium [Mass/Vol] 8.9 mg/dL Normal 8.9-11.1 [facility] Comment on above: Performed By: #### 2 [id number] #### [facility] [address] [place] [address] Chloride [Moles/Vol] 100 mmol/L Low 101-111 [facility] Comment on above: Performed By: #### 2 [id number] #### [facility] [address] [place] [address] CO2 [Moles/Vol] 34 mmol/L High 21-31 [facility] Comment on above: Performed By: #### 2 [id number] #### [facility] [address] [place] [address] Creatinine [Mass/Vol] 1.0 mg/dL Normal 0.5-1.3 [facility] Comment on above: Performed By: #### 2 [id number] #### [facility] [address] [place] [address] Glucose [Mass/Vol] 112 mg/dL Normal 55-199 [facility] Comment on above: Performed By: #### 2 [id number] #### [facility] [address] [place] [address] Potassium [Moles/Vol] 4.2 mmol/L Normal 3.5-5.3 [facility] Comment on above: Performed By: #### 2 [id number] #### [facility] [address] [place] [address] Sodium [Moles/Vol] 137 mmol/L Normal 135-145 [facility] Comment on above: Performed By: #### 2 [id number] #### [facility] [address] [place] [address] Urea nitrogen [Mass/Vol] 14 mg/dL Normal 5-21 [facility] Comment on above: Performed By: #### 2 [id number] #### [facility] [address] [place] [address] Urea nitrogen/Creatinine [Mass ratio] 14 No Units Normal 10-20 [facility] Comment on above: Performed By: #### 2 [id number] #### [facility] [address] [place] [address] CBC w/ Auto Diffon 03-15-202 4 Basophils/100 WBC (Bld) 0.5 % Normal 0.0-2.0 [facility] Comment on above: Performed By: #### 2 [id number] #### [facility] [address] [place] [address] Basophils/Leukocytes Auto (Bld) [Pure # fraction] 0.0 E9/L Normal 0.0-0.2 [facility] Comment on above: Performed By: #### 2 [id number] #### [facility] [address] [place] [address] Eosinophils (Bld) [#/Vol] 0.2 E9/L Normal 0.0-0.5 [facility] Comment on above: Performed By: #### 2 [id number] #### [facility] [address] [place] [address] Eosinophils/100 WBC (Bld) 4.9 % Normal 0.0-8.0 [facility] Comment on above: Performed By: #### 2 [id number] #### [facility] [address] [place] [address] Erythrocyte distribution width (RBC) [Ratio] 12.7 % Normal 10.9-14.2 [facility] Comment on above: Performed By: #### 2 [id number] #### [facility] [address] [place] [address] Hematocrit (Bld) [Volume fraction] 35.6 % Normal 34.0-46.0 [facility] Comment on above: Performed By: #### 2 [id number] #### [facility] [address] [place] [address] Hemoglobin (Bld) [Mass/Vol] 11.7 g/dL Low 12.0-16.0 [facility] Comment on above: Performed By: #### 2 [id number] #### [facility] [address] [place] [address] Lymphocytes (Bld) [#/Vol] 1.2 E9/L Normal 1.0-4.0 [facility] Comment on above: Performed By: #### 2 [id number] #### [facility] [address] [place] [address] Lymphocytes/100 WBC (Bld) 24.9 % Normal 14.0-50.0 [facility] Comment on above: Performed By: #### 2 [id number] #### [facility] [address] [place] [address] MCH (RBC) [Entitic mass] 29.3 pg Normal 27.0-34.0 [facility] Comment on above: Performed By: #### 2 [id number] #### [facility] [address] [place] [address] MCHC (RBC) [Mass/Vol] 32.9 g/dL Normal 31.4-36.0 [facility] Comment on above: Performed By: #### 2 [id number] #### [facility] [address] [place] [address] MCV (RBC) [Entitic vol] 88.9 fL Normal 80.0-100.0 [facility] Comment on above: Performed By: #### 2 [id number] #### [facility] [address] [place] [address] Monocytes (Bld) [#/Vol] 0.6 E9/L Normal 0.2-1.0 [facility] Comment on above: Performed By: #### 2 [id number] #### [facility] [address] [place] [address] Neutrophils (Bld) [#/Vol] 2.8 E9/L Normal 2.0-7.5 [facility] Comment on above: Performed By: #### 2 [id number] #### [facility] [address] [place] [address] Neutrophils/100 WBC (Bld) 56.9 % Normal 36.0-75.0 [facility] Comment on above: Performed By: #### 2 [id number] #### [facility] [address] [place] [address] Platelet 229.0 E9/L Normal 150.0-500. 0 [facility] Comment on above: Performed By: #### 2 [id number] #### [facility] [address] [place] [address] Platelet mean volume (Bld) [Entitic vol] 7.4 fL Normal 6.4-10.8 [facility] Comment on above: Performed By: #### 2 [id number] #### [facility] [address] [place] [address] RBC (Bld) [#/Vol] 4.0 E12/L Low 4.3-5.9 [facility] Comment on above: Performed By: #### 2 [id number] #### [facility] [address] [place] [address] WBC corrected for nucl RBC Auto (Bld) [#/Vol] 5.0 E9/L Normal 4.0-11.0 [facility] Comment on above: Performed By: #### 2 [id number] #### [facility] [address] [place] [address] CHEMISTRYOrdered By: SYSTEM SYSTEM on 03-15-2024 Anion [...] Coding Query From: Genny Busch RN To: Latonya GARCIA MD; Sent: 03/15/2024 12:11:46 EDT ! Subject: Coding Query Due Date/Time: 03/16/2024 12:11:00 EDT Caller Name: MAEGAN DYE; Caller Number: Lakshmi , Mj Documentation in the medical record indicates this [...] desired or expected. Thank you![email or web address] [phone] From: Latonya GARCIA MD To: Jo-Ann BULLARD, Genny [place]; Sent: 03/15/2024 12:30:05 EDT Subject: RE: Coding Query Caller Name: MAEGAN DYE; Caller Number: Lakshmi , M Other- likely atelectasis. Oxygen desaturation study to be performed in AM. Normal [facility] HEMATOLOGYOrdered By: SYSTEM SYSTEM on 03-15-2024 Basophils/100 [...] Maximus e Manageron 03-15-2024 Interdisciplinary Note - Live Out Nanny Interdisciplinary Note - Live Out Nanny CRM to room 301 Patient is awake, [...] she qualifies. Patient was provided CRM contact, white board updated. CRM following DC date TBD, CRM will get updates at 10 AM Therapy recs HH VS no needs Normal [facility] Comment on above: Result Comment: Elec tronically Signed By: Latasha Hernández\.br\Date and Time Signed: 03/15/24 11:49 EDT Interdisciplinary Note - Ryland n 03-15-2024 Interdisciplinary Note - OT Interdisciplinary Note - OT OT [facility] six clicks score = HH services vs [place] further needs [place]. Patient requires Close sup w/ standing adls and transfers. Pt is limited by abd. pain and lethargy this date. Inpatient OT services to follow 3d/wk to improve Ind w/ standing adls/transfers as medical status improves. Normal [facility] eGFRon 03-15-2024 eGFR 58 mL/min/1.73 m2 Low >=59 [facility] Comment on above: Performed By: #### 1 [id number] ####[facility] [address] [place] [address] ABO/Rhon 03-14-2024 ABO/Rh Positive Invalid Interpretation Code [facility] Comment on above: Performed By: #### 2 [id number] #### [facility] [address] [place] [address] ABO/Rh History Checkon 03-14 ABO/Rh History Check Verified Hx Blood Type Normal [facility] Comment on above: Performed By: #### 1 [id number] #### [facility] [address] [place] [address] ABSCon 03-14-2024 ABSC Gel Interp Negative Normal [facility] Comment on above: Performed By: #### 1 [id number] ####[facility] [address] [place] [address] BLOOD BANKOrdered By: Luis Trotter on 03-14-2024 ABO/Rh Interp Positive Invalid Interpretation Code [facility] [place] BB Subsection ABSC Gel Interp Negative (03/14/24 5:19 AM) Normal [facility] [place] BB Subsection BMPon 03-14-2024 Anion gap [Moles/Vol] 9 mmol/L Normal 6-16 [facility] Comment on above: Performed By: #### 2 [id number] #### [facility] [address] [place] [address] Calcium [Mass/Vol] 9.0 mg/dL Normal 8.9-11.1 [facility] Comment on above: Performed By: #### 2 [id number] #### [facility] [address] [place] [address] Chloride [Moles/Vol] 100 mmol/L Low 101-111 [facility] Comment on above: Performed By: #### 2 [id number] #### [facility] [address] [place] [address] CO2 [Moles/Vol] 33 mmol/L High 21-31 [facility] Comment on above: Performed By: #### 2 [id number] #### [facility] [address] [place] [address] Creatinine [Mass/Vol] 1.2 mg/dL Normal 0.5-1.3 [facility] Comment on above: Performed By: #### 2 895143 #### [facility] [address] [place] [address] Glucose [Mass/Vol] 125 mg/dL Normal 55-199 [facility] Comment on above: Performed By: #### 2 955802 #### [facility] [address] [place] [address] Potassium [Moles/Vol] 4.5 mmol/L Normal 3.5-5.3 [facility] Comment on above: Performed By: #### 2 353033 #### [facility] [address] [place] [address] Sodium [Moles/Vol] 137 mmol/L Normal 135-145 [facility] Comment on above: Performed By: #### 2 [id number] #### [facility] [address] [place] [address] Urea nitrogen [Mass/Vol] 11 mg/dL Normal 5-21 [facility] Comment on above: Performed By: #### 2 616978 #### [facility] [address] [place] [address] Urea nitrogen/Creatinine [Mass ratio] 9 No Units Low 03-14 [facility] Comment on above: Performed By: #### 2 [id number] #### [facility] [address] [place] [address] Blood Bank ID#on 03-14-2024 BBID# [id number] Invalid Interpretation Code [facility] Comment on above: Performed By: #### 1 [id number] #### [facility] [address] [place] [address] C Urineon 03-14-2024 Bacteria identified Cx Nom [...] Locations R1: This test was performed at: [facility], [address] [place] [address], [address]- , [place], Normal [facility] Comment on above: Performed By: #### 2 [id number] #### [facility] [address] [place] [address] CBC w/ Auto Diffon 10-20-202 4 Basophils/100 WBC (Bld) 0.7 % Normal 0.0-2.0 [facility] Comment on above: Performed By: #### 2 [id number] #### [facility] [address] [place] [address] Basophils/Leukocytes Auto (Bld) [Pure # fraction] 0.0 E9/L Normal 0.0-0.2 [facility] Comment on above: Performed By: #### 2 281063 #### [facility] [address] [place] [address] Eosinophils (Bld) [#/Vol] 0.1 E9/L Normal 0.0-0.5 [facility] Comment on above: Performed By: #### 2 704428 #### [facility] [address] [place] [address] Eosinophils/100 WBC (Bld) 2.1 % Normal 0.0-8.0 [facility] Comment on above: Performed By: #### 2 593670 #### [facility] [address] [place] [address] Erythrocyte distribution width (RBC) [Ratio] 13.3 % Normal 10.9-14.2 [facility] Comment on above: Performed By: #### 2 587269 #### [facility] [address] [place] [address] Hematocrit (Bld) [Volume fraction] 36.8 % Normal 34.0-46.0 [facility] Comment on above: Performed By: #### 2 363491 #### [facility] [address] [place] [address] Hemoglobin (Bld) [Mass/Vol] 12.2 g/dL Normal 12.0-16.0 [facility] Comment on above: Performed By: #### 2 [id number] #### [facility] [address] [place] [address] Lymphocytes (Bld) [#/Vol] 1.1 E9/L Normal 1.0-4.0 [facility] Comment on above: Performed By: #### 2 005703 #### [facility] [address] [place] [address] Lymphocytes/100 WBC (Bld) 15.4 % Normal 14.0-50.0 [facility] Comment on above: Performed By: #### 2 395224 #### [facility] [address] [place] [address] MCH (RBC) [Entitic mass] 29.5 pg Normal 27.0-34.0 [facility] Comment on above: Performed By: #### 2 358871 #### [facility] [address] [place] [address] MCHC (RBC) [Mass/Vol] 33.0 g/dL Normal 31.4-36.0 [facility] Comment on above: Performed By: #### 2 150805 #### [facility] [address] [place] [address] MCV (RBC) [Entitic vol] 89.1 fL Normal 80.0-100.0 [facility] Comment on above: Performed By: #### 2 955030 #### [facility] [address] [place] [address] Monocytes (Bld) [#/Vol] 0.5 E9/L Normal 0.2-1.0 [facility] Comment on above: Performed By: #### 2 [id number] #### [facility] [address] [place] [address] Neutrophils (Bld) [#/Vol] 5.2 E9/L Normal 2.0-7.5 [facility] Comment on above: Performed By: #### 2 010067 #### [facility] [address] [place] [address] Neutrophils/100 WBC (Bld) 75.0 % Normal 36.0-75.0 [facility] Comment on above: Performed By: #### 2 390245 #### [facility] [address] [place] [address] Platelet 244.0 E9/L Normal 150.0-500. 0 [facility] Comment on above: Performed By: #### 2 832713 #### [facility] [address] [place] [address] Platelet mean volume (Bld) [Entitic vol] 7.4 fL Normal 6.4-10.8 [facility] Comment on above: Performed By: #### 2 [id number] #### [facility] [address] [place] [address] RBC (Bld) [#/Vol] 4.1 E12/L Low 4.3-5.9 [facility] Comment on above: Performed By: #### 2 335259 #### [facility] [address] [place] [address] WBC corrected for nucl RBC Auto (Bld) [#/Vol] 6.9 E9/L Normal 4.0-11.0 [facility] Comment on above: Performed By: #### 2 886944 #### [facility] [address] [place] [address] CHEMISTRYOrdered By: SYSTEM SYSTEM on 03-14-2024 Albumin [...] Instructions For Use, Siobhan Prashant, December 2017) Urea nitrogen [Mass/Vol] 11 mg/dL Normal 5 - 21 mg/dL [facility] Urea nitrogen/Creatinine [Mass ratio] 9 mg/mg Low 10 - 20 [facility] COAGULATIONOrdered By: Luis Trotter on 03-14-2024 aPTT Coag (PPP) [Time] 22.3 s Low 25.1 - 36.5 second(s) [facility] [place] Auto Coag Comment on above: Interpretive Data: P vandameter 15 days - 4 weeks 1 - [...] the same coagulation reagent and instrumentation as [facility] [place]. Currently there are no coagulation studies available worldwide for children to 14 days, and no normal ranges. Heparin therapeutic range (represented by Anti-Factor Xa activity of 0.2 - 0.4 U/mL) corresponds to PTT of 56.6 - 109.0 sec. INR Coag (PPP) [Relative time] 0.94 {INR} Invalid Interpretation Code [facility] [place] Auto Coag Comment on above: Interpretive Data: I NR results are specifically intended to assess patients stabilized on long-term Anticoagulation therapy suggested INR s Less Intensive Anticoagulation 2.0 3.0 Conventional Range 3.0 4.5 PT Coag (PPP) [Time] 10.5 s Normal 9.4 - 1 2.5 second(s) [facility] [place] Auto Coag Comment on above: Interpretive Data: [...] the same coagulation reagent and instrumentation as [facility] [place]. Currently there are no coagulation studies available [...] MD Transcribed by: GLORIA Technologist: MELISSA Aranda [facility] CT Maxillofacial w/o Contras ton 03-14-2024 CT Maxillofacial w/o Contrast Exam Date/Time: [...] MD Transcribed by: GLORIA Technologist: MELISSA Aranda [facility] CT Spine Cervical w/o Contra ston 03-14-2024 [...] MD Transcribed by: GLORIA Technologist: MELISSA Aranda [facility] ED Clinical Summaryon 2023 ED Clinical Summary ED Clinical Summary [place] [id number] ED Clinical Summary Person Information Name: MAEGAN DYE/[facility] Age: 74 Years : 1950 Sex: Female Language: Peruvian PCP: AZUL GORMAN CNP Marital Status: Phone: [phone] Visit Id: Visit Reason: Closed head injury without LOC; Jaw pain; Fall; FELL HIT FACE Speciality: Acuity: 3 Enc Type: Inpatient Med Service: Medical Arrival: 03/14/2024 04:51:11 Discharge: LOS: 000 05:21 Checkin: 03/14/2024 04:51:11 Checkout: 03/14/2024 10:12:11 Dispo Type: Admitted as IP to this [facility] EVENTS: Event Name Event Status Request [...] 09:38:17 Patient Care Request 03/14/2024 09:38:17 ADDRESS: [address] [place] [address] [address] [facility] [id number] PHYS DOC NOTES: MEDICAL INFORMATION: Prescriptions Given: [...] 5. fluticasone nasal (fluticasone 0.05 mg/inh Nasal [place]) 2 Sprays Nasal Inhalation every day. each [...] constipation. Refills: (more content not included)... Normal [facility] ED Note-Physicianon 03-14-20 ED Note-Physician ED Note-Physician [...] and Complexity of Problems Differential Diagnosis: [] [facility] Data External documents reviewed: N/A My [...] Information AZUL GORMAN In 3 days [address] [facility] [place] [phone] Business (1) Additional Instructions: Patient Education Head [...] Vitamin D deficiency Historical Accidental fall Agent [place] ASTHMA Benzodiazepine withdrawal Bipolar disorder Callus of foot Cerebral hemorrhage chronic back pain Chronic GERD Chronic kidney disease, stage 2 (mild) Chronic pain Closed fracture of base of skull (more content not included)... Normal [facility] Comment on above: Result Comment: Elec tronically Signed By: Didier Hooks M.D.\.olegario\Date and Time Signed: 03/14/24 11:02 EDT ED Patient Summaryon 024 ED Patient Summary ED Patient Summary [address] [address] Patient Discharge Instructions Person Information Name: MAEGAN DYE Age: 74 Years Arrival Date: 03/14/2024 04:51:11 Discharge Diagnosis: Closed head injury Primary Care Physician: AZUL GORMAN CNP Provider Information Primary Provider: Santiago Harrington DO Advanced Supervisor Boiler Repair:None The exam and treatment you received in the Emergency Department were for an urgent problem and are not intended as complete care. It is important that you follow up with a doctor, nurse practitioner, or physician?s bookkeeping assistant for ongoing care. If your symptoms [...] Follow-up Instructions: With: Address: When: AZUL [address], [place] [address] Business (1) In 3 days In the event that this physician does not participate in your insurance network, please consult with your insurance company to find a nearby participating provider. Patient Education Materials: Head Injury, Adult A MESSAGE TO ALL PATIENTS REGARDING OPIOIDS PRESCRIPTION OPIOIDS: WHAT YOU NEED TO KNOW Prescription opioids can be used to help relieve odlawbif-mc-tdtyjo pain and are often prescribed following a [...] be struggling with addiction, tell your health pet caregiver and ask for guidance or call [employer]?S National Helpline at 2-712-619-AMEC. v Source: [place] Departmen (more content not included)... Normal [facility] HEMATOLOGYOrdered By: SYSTEM SYSTEM on 03-14-2024 Basophils/100 [...] 03-14-2024 Albumin [Mass/Vol] 3.9 g/dL Normal 3.3-5.0 [facility] Comment on above: Performed By: #### 2 [id number] #### [facility] [address] [place] [address] Albumin/Globulin (S) [Mass conc ratio] 1.4 Normal 1.1-2.2 [facility] Comment on above: Performed By: #### 2 [id number] #### [facility] [address] [place] [address] ALP [Catalytic activity/Vol] 99 Int._Unit/L High 21-98 [facility] Comment on above: Performed By: #### 2 [id number] #### [facility] [address] [place] [address] ALT No additional P-5'-P [Catalytic activity/Vol] 6 Int._Unit/L Normal 6-46 [facility] Comment on above: Performed By: #### 2 [id number] #### [facility] [address] [place] [address] AST [Catalytic activity/Vol] 15 Int._Unit/L Normal 5-43 [facility] Comment on above: Performed By: #### 2 [id number] #### [facility] [address] [place] [address] Bilirubin [Mass/Vol] 0.5 mg/dL Normal 0.0-1.1 [facility] Comment on above: Performed By: #### 2 309160 #### [facility] [address] [place] [address] Bilirubin.direct [Mass/Vol] 0.1 mg/dL Normal 0.0-0.4 [facility] Comment on above: Performed By: #### 2 [id number] #### [facility] [address] [place] [address] Bilirubin.indirect [Mass or moles/Vol] 0.4 mg/dL Normal 0.1-0.9 [facility] Comment on above: Performed By: #### 2 028611 #### [facility] [address] [place] [address] Globulin (S) [Mass/Vol] 2.7 g/dL Normal 1.4-4.0 [facility] Comment on above: Performed By: #### 2 [id number] #### [facility] [address] [place] [address] Protein [Mass/Vol] 6.6 g/dL Normal 6.0-7.8 [facility] Comment on above: Performed By: #### 2 655095 #### [facility] [address] [place] [address] Lactic Acidon 03-14-2024 Lactic Acid Lvl 1.1 mmol/L Normal 0.5-2.2 [facility] Comment on above: Performed By: #### 2 [id number] #### [facility] [address] [place] [address] Lipase Levelon 03-14-2024 Lipase [Catalytic activity/Vol] 12 U/L Low 13-58 [facility] Comment on above: Performed By: #### 2 [id number] #### [facility] [address] [place] [address] PT & PTTon 03-14-2024 aPTT Coag (PPP) [Time] 22.3 second(s) Low 25.1-36.5 [facility] Comment on above: Result Comment: Para meter [...] the same coagulation reagent and instrumentation as [facility] [place]. Currently there are no coagulation studies available worldwide for children to 14 days, and no normal ranges. Heparin therapeutic range (represented by Anti-Factor Xa activity of 0.2 - 0.4 U/mL) corresponds to PTT of 56.6 - 109.0 sec. Performed By: #### 1 [id number] #### [facility] [address] [place] [address] INR Coag (PPP) [Relative time] 0.94 {INR} Invalid Interpretation Code [facility] Comment on above: Result Comment: INR results are specifically intended to assess patients stabilized on long-term Anticoagulation therapy suggested INR?s ?Less Intensive Anticoagulation? 2.0 ? 3.0 Conventional Range 3.0 ? 4.5 Performed By: #### 1 [id number] #### [facility] [address] [place] [address] PT Coag (PPP) [Time] 10.5 second(s) Normal 9.4-12.5 [facility] Comment on above: Result Comment: 15 d [...] ranges were obtained from a study by natalie Norman al. prepared from 1437 samples obtained at 7 different centers using the same coagulation reagent and instrumentation as [facility] [place]. Currently there are no coagulation studies available worldwide for children to 14 days, and no normal ranges. Performed By: #### 1 [id number] #### [facility] [address] [place] [address] Troponinon 03-14-2024 Troponin HS 4.10 pg/mL Low 10.10-27.1 0 [facility] Comment on above: Result Comment: The 95% CI (Confidence Interval) PPV (Positive Predictive Value) for myocardial infarction in females is 38 pg/mL, in males 51 pg/mL. The results should be used in conjunction with clinical conditions of myocardial infarction. (Access High Sensitivity Troponin I Instructions For Use, Siobhan Prashant, December 2017) Performed By: #### 2 [id number] #### [facility] [address] [place] [address] XR Chest Single Viewon 03-14 XR Chest Single View Exam Date/Time: 03/14/2024 07:01 EDT Reason for Exam: Difficulty breathing Report IMPRESSION: NO ACUTE CARDIOPULMONARY DISEASE. CLINICAL HISTORY: Difficulty breathing COMPARISON: 01/12/2024 FINDINGS: Stable degenerative change right shoulder. Cardiopericardial silhouette is normal. Pulmonary vasculature is normal. Lungs are clear. Ordering Provider: Santiago Harrington FINAL REPORT Dictated: 03/14/2024 8:38 am Chucho Gnadara MD Signed (Electronic Signature): 03/14/2024 8:38 am Signed by: Chucho Gandara MD Transcribed by: GLORIA Technologist: MELISSA Technical Comments Radiation Dose: Ka,r in mGy = na DAP = na Normal [facility] eGFRon 03-14-2024 eGFR 47 mL/min/1.73 m2 Low >=59 [facility] Comment on above: Performed By: #### 1 [id number] #### [facility] [address] [place] [address] ED Clinical Summaryon 2023 ED Clinical Summary ED Clinical Summary [address] [address] ED Clinical Summary Person Information Name: MAEGAN DYE[place] Age: 74 Years : 1950 Sex: Female Language: Peruvian PCP: AZUL GORMAN CNP Marital Status: Phone: [phone] Visit Id: Visit Reason: Dysuria; Back pain; [...] 03/12/2024 16:28:51 03/12/2024 16:28:51 03/12/2024 16:28:51 ADDRESS: [facility] [address] [facility] [id number] PHYS DOC NOTES: MEDICAL INFORMATION: Prescriptions Given: [...] 5. fluticasone nasal (fluticasone 0.05 mg/inh Nasal [place]) 2 Sprays Nasal Inhalation every day. each [...] Retention, Female Follow up: With: Address: When: AZUL GORMAN [address] [place], [place] [id number] Business (1) In 3 days 03/15/2024 DIAGNOSIS: Chronic retention of urine Normal [facility] ED Note-Nursingon 03-12-2024 ED Note-Nursing ED Note-Nursing pt refusing urinary catheter at this time Normal [facility] ED Note-Nursing ED Note-Nursing bladder scan 666mL post void Normal [facility] ED Note-Nursing ED Note-Nursing bladder scanned pt - 706 mL Normal [facility] ED Note-Physicianon 03-12-20 ED Note-Physician ED Note-Physician [...] Contact Information AZUL GORMAN In 3 days 03/15/2024 EDT [address] [place] [address]- Business (1) Additional Instructions: Patient Education Acute Urinary [...] made to ensure accuracy, however, inadvertently computerized fisheries director mistakes may be present. Appropriate healthcare PPE [...] Vitamin D deficiency Historical Accidental fall Agent [place] ASTHMA Benzodiazepine withdrawal Bipolar disorder Callus of [...] Procedure/Surgical History (more content not included)... Normal [facility] Comment on above: Result Comment: Elec tronically Signed By: Malick Ho PA-C\.br\Date and Time Signed: 03/12/24 17:37 EDT\.br\Electronically Co-Signed By: Didier Hooks M.D.\.br\Date and Time Co-Signed: 03/12/24 18:25 EDT ED Patient Summaryon 024 ED Patient Summary ED Patient Summary [place] [id number] Patient Discharge Instructions Person Information Name: MAEGAN DYE Age: 74 Years Arrival Date: 03/12/2024 12:21:50 Discharge Diagnosis: Chronic retention of urine Primary Care Physician: AZUL GORMAN CNP Provider Information Primary Provider: Didier Hooks M.D. Advanced Supervisor Boiler Repair:Malick Ho PA-C The exam and treatment you received in the Emergency Department were for an urgent problem and are not intended as complete care. It is important that you follow up with a doctor, nurse practitioner, or physician?s bookkeeping assistant for ongoing care. If your symptoms [...] Follow-up Instructions: With: Address: When: AZUL [address] [facility] [place] [address] Business (1) In 3 days 03/15/2024 In the event that this physician does not participate in your insurance network, please consult with your insurance company to find a nearby participating provider. Patient Education Materials: Acute Urinary Retention, Female A MESSAGE TO ALL PATIENTS REGARDING OPIOIDS PRESCRIPTION OPIOIDS: WHAT YOU NEED TO KNOW Prescription opioids can be used to help relieve cufhertm-lm-mgmlpv pain and are often prescribed following a [...] be struggling with addiction, tell your health pet caregiver and ask for guidance or call [facility] National Help (more content not included)... Normal [facility] URINALYSISOrdered By: SYSTEM SYSTEM on 03-12-2024 Bacteria Auto Ql (U) Trace /HPF Normal Trace/HPF [facility] UA Auto SS Bilirubin Ql (U) Negative Normal Negativemg /dL [facility] UA Auto SS Clarity (U) Clear (03/12/24 1:55 PM) Normal Clear [facility] UA Auto SS Color (U) Dark-Yellow 1 *ABN* (03/12/24 1:55 PM) Invalid Interpretation Code Yellow [facility] UA Auto SS Comment on above: Interpretive Data: M icroscopic readings are only performed on those samples that meet specific criteria set forth by [facility]. Epithelial cells.squamous Auto (Urine sed) [#/Area] [...] Spec Desc Catheter (03/12/24 1:55 PM) Normal [facility] UA Auto SS C Urineon 03-11-2024 Bacteria [...] Locations R1: This test was performed at: [facility], [address] [place] [address], [address]- , [place], Normal [facility] Comment on above: Performed By: #### 2 [id number] #### [facility] [address] [place] [address] ED Clinical Summaryon 2023 ED Clinical Summary ED Clinical Summary [address] [address] ED Clinical Summary Person Information Name: MAEGAN DYE/[facility] Age: 74 Years : 1950 Sex: Female Language: Peruvian PCP: AZUL GORMAN CNP Marital Status: Phone: [phone] Visit Id: Visit Reason: Back pain; Dysuria; [...] 03/11/2024 14:09:53 03/11/2024 14:09:53 03/11/2024 14:09:53 ADDRESS: [facility] [address] [facility] [id number] PHYS DOC NOTES: MEDICAL INFORMATION: Prescriptions Given: New Medications [facility]/pharmacy #[id number], [address] [place], [place] [id number], [phone] phenazopyridine (Pyridium 200 mg Tab) 1 Tablets [...] 5. fluticasone nasal (fluticasone 0.05 mg/inh Nasal [place]) 2 Sprays Nasal Inhalation every day. each [...] Dysuria Follow up: With: Address: When: AZUL [address], [place] [address] Business (1) In 3 days 03/14/2024 Comments: Make sure to follow-up with your primary doctor as discussed. Return to the emergency room if your symptoms get worse, fever or any new symptoms DIAGNOSIS: 1:Dysuria Normal [facility] ED Note-Physicianon 03-11-20 ED Note-Physician ED Note-Physician [...] and Complexity of Problems Differential Diagnosis: [] [facility] Data External documents reviewed: [] My [...] day(s), # 9 tab(s), Refills(s) 0, Pharmacy: [facility]/pharmacy #[id number], 154.9, cm, 03/11/24 11:50:00 EDT, Height/Length Dosing, 66, kg, 03/11/24 11:50:00 EDT, Weight Dosing UA with Cult Rflx Disposition Plan Patient Discharge Condition Stable Discharge Disposition Discharge home Discharge Prescription List Prescriptions Pyridium 200 mg Tab, 200 mg= 1 tab(s), Oral, TID Follow-up With When Contact Information AZUL GORMAN In 3 days 03/14/2024 EDT [address] [place] [address] [facility] (1) Additional Instructions: Make sure to follow-up [...] Vitamin D deficiency 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 Normal [facility] Comment on above: Result Comment: Elec tronically Signed By: Neva Newton, Didier Martins\.br\Date and Time Signed: 03/11/24 14:25 EDT ED Patient Summaryon 024 ED Patient Summary ED Patient Summary [address] [address] Patient Discharge Instructions Person Information Name: MAEGAN DYE Age: 74 Years Arrival Date: 03/11/2024 11:40:07 Discharge Diagnosis: 1:Dysuria Primary Care Physician: AZUL GORMAN CNP Provider Information Primary Provider: Didier Hooks M.D. Advanced Supervisor Boiler Repair:None The exam and treatment you received in the Emergency Department were for an urgent problem and are not intended as complete care. It is important that you follow up with a doctor, nurse practitioner, or physician?s bookkeeping assistant for ongoing care. If your symptoms [...] Follow-up Instructions: With: Address: When: AZUL GORMAN [address] [place] [address] [place] [address] Business (1) In 3 days 03/14/2024 Comments: [...] opioids can be used to help relieve siutidcd-ru-corgvf pain and are often prescribed following a [...] struggling wi (more content not included)... Normal [facility] UA with Cult Rflxon 03-11-20 24 Bilirubin Ql (U) Negative Normal Negative [facility] Comment on above: Performed By: #### 4 [id number] #### [facility] [address] [place] [address] Clarity (U) Clear Normal Clear [facility] Comment on above: Performed By: #### 4 [id number] #### [facility] [address] [place] [address] Color (U) Light-Yellow Normal Yellow [facility] Comment on above: Result Comment: Micr oscopic readings are only performed on those samples that meet specific criteria set forth by [facility]. Performed By: #### 4 [id number] #### [facility] [address] [place] [address] Glucose Ql (U) Negative Normal Negative [facility] Comment on above: Performed By: #### 4 [id number] #### [facility] [address] [place] [address] Hemoglobin Auto test strip (U) [Mass/Vol] Negative Normal Negative [facility] Comment on above: Performed By: #### 4 [id number] #### [facility] [address] [place] [address] Ketones Auto test strip Ql (U) Negative Normal Negative [facility] Comment on above: Performed By: #### 4 [id number] #### [facility] [address] [place] [address] Leukocyte esterase Auto test strip Ql (U) Negative Normal Negative [facility] Comment on above: Performed By: #### 4 [id number] #### [facility] [address] [place] [address] Nitrite Auto test strip Ql (U) Negative Normal Negative [facility] Comment on above: Performed By: #### 4 [id number] #### [facility] [address] [place] [address] pH (U) 6.0 [pH] Invalid Interpretation Code 5.0-9.0 [facility] Comment on above: Performed By: #### 4 [id number] #### [facility] [address] [place] [address] Protein Ql (U) Negative Normal Negative [facility] Comment on above: Performed By: #### 4 [id number] #### [facility] [address] [place] [address] Specific gravity (U) [Rel density] 1.008 Invalid Interpretation Code 1.005-1.03 0 [facility] Comment on above: Performed By: #### 4 [id number] #### [facility] [address] [place] [address] Urobilinogen (U) [Mass/Vol] Negative Normal Negative [facility] Comment on above: Performed By: #### 4 [id number] #### [facility] [address] [place] [address] Type of Urine collection method Clean Catch Normal [facility] Comment on above: Performed By: #### 4 [id number] #### [facility] [address] [place] [address] URINALYSISOrdered By: SYSTEM SYSTEM on 03-11-2024 Bilirubin Ql (U) Negative Normal Negativemg /dL [facility] UA Auto SS Clarity (U) Clear (03/11/24 1:35 PM) Normal Clear [facility] UA Auto SS Color (U) Light-Yellow 1 (03/11/24 1:35 PM) Normal Yellow [facility] UA Auto SS Comment on above: Interpretive Data: M icroscopic readings are only performed on those samples that meet specific criteria set forth by [facility]. Glucose Ql (U) Negative Normal Negativemg [...] /dL [facility] UA Auto SS URINALYSISOrdered By: Bryanna Alvarado on 03-11-2024 UA Spec Desc Clean Catch (03/11/24 1:35 PM) Normal [facility] UA Auto SS ED Clinical Summaryon 2023 ED Clinical Summary ED Clinical Summary [address] [address] ED Clinical Summary Person Information Name: MAEGAN DYE[facility] Age: 74 Years : 1950 Sex: Female Language: Peruvian PCP: AZUL GORMAN CNP Marital Status: Phone: [phone] Visit Id: Visit Reason: Urinary frequency; Dysuria; [...] 03/09/2024 06:54:09 03/09/2024 06:54:09 03/09/2024 06:54:09 ADDRESS: [address] [place] [id number] PHYS DOC NOTES: MEDICAL INFORMATION: Prescriptions Given: Medications to Continue Taking That Have Changed [id number], [address], [place] [id number], [phone] START: nitrofurantoin (Macrobid 100 mg Cap) 1 [...] 5. fluticasone nasal (fluticasone 0.05 mg/inh Nasal [place]) 2 Sprays Nasal Inhalation every day. each [...] EDUCATION INFORMATION: Instructions: Urinary Tract Infection, Adult, Qshf-ov-Rckk Follow up: With: Address: When: AZUL GORMAN [address] [place] [address] [place] [address] [facility] (1) In 3 days 03/12/2024 Comments: Start taking the Macrobid twice daily until you have completed the course. Please follow-up with your primary care doctor for further evaluation management. Return to the ED for any new or worsening symptoms. DIAGNOSIS: Acute UTI (urinary tract infection) Normal [facility] ED Note-Physicianon 03-09-20 ED Note-Physician ED Note-Physician [...] urination and frequency. Patient was seen at [facility] yesterday was diagnosed with a urinary tract [...] and Complexity of Problems Differential Diagnosis: [] [facility] Data External documents reviewed: [] My [...] day(s), # 10 cap(s), Refills(s) 0, Pharmacy: [facility] #[id number], 154.9, cm, 03/09/24 6:37:00 EDT, Height/Length Dosing, 65.9, kg, 03/09/24 6:37:00 EDT, Weight Dosing UA with Cult Rflx Disposition Plan Discharge Prescription List Prescriptions Macrobid 100 mg Cap, 100 mg= 1 cap(s), Oral, q12hr Follow-up With When Contact Information AZUL GORMAN In 3 days 03/12/2024 EDT [address] [place] [address] Business (1) Additional Instructions: Start taking the Macrobid twice daily until you have completed the course. Please follow-up with your primary care doctor for further evaluation management. Return to the ED for any new or worsening symptoms. Patient Education Urinary Tract Infection, Adult, Lohx-vm-Swxo Problem List/Past Medical History Ongoing Acute UTI [...] Vitamin D deficiency Historical Accidental fall Agent [place] ASTHMA Benzodiazepine withdrawal Bipolar disorder Callus of foot Cerebral hemorrhage chronic back pain Chronic GERD Chronic kidney disease, stage 2 (mild) Chronic pain Closed fracture of base of skull with concussion code blue d/t hypokalemia collapsed lung on th (more content not included)... Normal [facility] Comment on above: Result Comment: Elec tronically Signed By: Mati Taylor DO\.br\Date and Time Signed: 03/09/24 06:51 EDT ED Patient Summaryon 024 ED Patient Summary ED Patient Summary [address] [address] Patient Discharge Instructions Person Information Name: MAEGAN DYE Age: 74 Years Arrival Date: 03/09/2024 06:21:26 Discharge Diagnosis: Acute UTI (urinary tract infection) Primary Care Physician: AZUL GORMAN CNP Provider Information Primary Provider: Mati Taylor DO Advanced Supervisor Boiler Repair:None The exam and treatment you received in the Emergency Department were for an urgent problem and are not intended as complete care. It is important that you follow up with a doctor, nurse practitioner, or physician?s bookkeeping assistant for ongoing care. If your symptoms [...] Follow-up Instructions: With: Address: When: AZUL GORMAN [address] [place] [address] [place] [address] Business (1) In 3 days 03/12/2024 Comments: [...] Patient Education Materials: Urinary Tract Infection, Adult, Mpri-eo-Cplz A MESSAGE TO ALL PATIENTS REGARDING OPIOIDS PRESCRIPTION OPIOIDS: WHAT YOU NEED TO KNOW Prescription opioids can be used to help relieve xmmjxtfg-sz-vyedjz pain and are often prescribed following a [...] ? Visit (more content not included)... Normal [facility] UA with Cult Rflxon 03-09-20 24 Bacteria Auto Ql (U) 2+ /HPF Abnormal Trace Fish er [facility] Comment on above: Performed By: #### 4 [id number] #### [facility] [address] [place] [address] Bilirubin Ql (U) Negative Normal Negative [facility] Comment on above: Performed By: #### 4 [id number] #### [facility] [address] [place] [address] Clarity (U) Turbid Abnormal Clear [facility] Comment on above: Performed By: #### 4 [id number] #### [facility] [address] [place] [address] Color (U) Light-Yellow Normal Yellow [facility] Comment on above: Result Comment: Micr oscopic readings are only performed on those samples that meet specific criteria set forth by [facility]. Performed By: #### 4 [id number] #### [facility] [address] [place] [address] Epithelial cells.renal Computer assisted Ql (U) 0-2 Abnormal [facility] Comment on above: Performed By: #### 4 [id number] #### [facility] [address] [place] [address] Epithelial cells.squamous Auto (Urine sed) [#/Area] >10 Invalid Interpretation Code [facility] Comment on above: Performed By: #### 4 [id number] #### [facility] [address] [place] [address] Glucose Ql (U) Negative Normal Negative [facility] Comment on above: Performed By: #### 4 [id number] #### [facility] [address] [place] [address] Hemoglobin Auto test strip (U) [Mass/Vol] Negative Normal Negative [facility] Comment on above: Performed By: #### 4 [id number] #### [facility] [address] [place] [address] Ketones Auto test strip Ql (U) Negative Normal Negative [facility] Comment on above: Performed By: #### 4 [id number] #### [facility] [address] [place] [address] Leukocyte esterase Auto test strip Ql (U) 250 Gretchen/uL Abnormal Negative [facility] Comment on above: Performed By: #### 4 [id number] #### [facility] [address] [place] [address] Mucus Auto Ql (U) Trace Normal Negative [facility] Comment on above: Performed By: #### 4 [id number] #### [facility] [address] [place] [address] Nitrite Auto test strip Ql (U) Negative Normal Negative [facility] Comment on above: Performed By: #### 4 [id number] #### [facility] [address] [place] [address] pH (U) 7.0 [pH] Invalid Interpretation Code 5.0-9.0 [facility] Comment on above: Performed By: #### 4 [id number] #### [facility] [address] [place] [address] Protein Ql (U) Negative Normal Negative [facility] Comment on above: Performed By: #### 4 [id number] #### [facility] [address] [place] [address] RBC Ql (U) 31-75 Abnormal 0-3 [facility] Comment on above: Performed By: #### 4 [id number] #### [facility] [address] [place] [address] Specific gravity (U) [Rel density] 1.007 Invalid Interpretation Code 1.005-1.03 0 [facility] Comment on above: Performed By: #### 4 [id number] #### [facility] [address] [place] [address] Urobilinogen (U) [Mass/Vol] Negative Normal Negative [facility] Comment on above: Performed By: #### 4 [id number] #### [facility] [address] [place] [address] WBC Auto (Urine sed) [#/Area] 31-75 Abnormal 0-5 [facility] Comment on above: Performed By: #### 4 [id number] #### [facility] [address] [place] [address] Yeast.budding Computer assisted Ql (U) 1+ CD:[id number] Abnormal [facility] Comment on above: Performed By: #### 4 [id number] #### [facility] [address] [place] [address] Type of Urine collection method Clean Catch Normal [facility] Comment on above: Performed By: #### 4 [id number] #### [facility] [address] [place] [address] URINALYSISOrdered By: Lilibeth Garcia on 03-09-2024 Bacteria Auto Ql (U) 2+ /HPF Invalid Interpretation Code Trace/HPF [facility] UA Auto SS Bilirubin Ql (U) Negative Normal Negativemg /dL [facility]A Auto SS Clarity (U) Turbid *ABN* (03/09/24 6:40 AM) Invalid Interpretation Code Clear [facility] UA Auto SS Color (U) Light-Yellow 1 (03/09/24 6:40 AM) Normal Yellow [facility] UA Auto SS Comment on above: Interpretive Data: M icroscopic readings are only performed on those samples that meet specific criteria set forth by [facility]. Epithelial cells.renal Computer assisted Ql (U) [...] Ql (U) 1+ graded/HPF Invalid Interpretation Code [facility] UA Auto SS URINALYSISOrdered By: Devora Villalobos on 03-09-2024 UA Spec Desc Clean Catch (03/09/24 6:40 AM) Normal [facility] UA Auto SS C Urineon 02-26-2024 Bacteria [...] Locations R1: This test was performed at: [facility], [address] [place] [address], [address] , , [facility] Comment on above: Performed By: #### 2 [id number] #### [facility] [address] [place] [address] ED Clinical Summaryon 2023 ED Clinical Summary ED Clinical Summary [address] [address] ED Clinical Summary Person Information Name: MAEGAN DYE/[facility] Age: 74 Years : 1950 Sex: Female Language: Peruvian PCP: AZUL GORMAN CNP Marital Status: Phone: [phone] Visit Id: Visit Reason: Flank pain; Dysuria; [...] ADDRESS: [address] [facility] [id number] PHYS DOC NOTES: MEDICAL INFORMATION: Prescriptions Given: Medications to Continue Taking That Have Changed [facility]/pharmacy #[id number], [address] [place], [place] [phone], [phone] START: nitrofurantoin (Macrobid 100 mg Cap) 1 [...] 5. fluticasone nasal (fluticasone 0.05 mg/inh Nasal [place]) 2 Sprays Nasal Inhalation every day. each nostril. Refills: 5. Misc Prescription (Straight Catheters & Supplies) Use daily, as directed.. Refills: 5. Misc Prescription (walking boot) right foot knee high walking Size small boot dx m21.789, m14.149 Fax to [facility]. Refills: 0. multivitamin with minerals (Therapeutic Multiple [...] Adult Follow up: With: Address: When: [address] [place] [phone] Business (1) In 3 days 02/27/2024 DIAGNOSIS: Bacterial infection, unspecified; UTI (urinary tract infection), bacterial Normal [facility] ED Note-Physicianon 02-24-20 ED Note-Physician ED Note-Physician Basic Information Time Seen: Vic BYRD Malick 02/24/2024 11:23 Chief Complaint pt c/o flank [...] day(s), # 14 cap(s), Refills(s) 0, Pharmacy: [facility]/pharmacy #[id number], 162, cm, 02/24/24 11:22:00 EDT, Height/Length [...] GORMAN In 3 days 02/27/2024 EDT [address] [place] [id number] [facility] (1) Additional Instructions: Patient Education Urinary Tract [...] made to ensure accuracy, however, inadvertently computerized fisheries director mistakes may be present. Appropriate healthcare PPE [...] Vitamin D deficiency Historical Accidental fall Agent [place] ASTHMA Benzodiazepine withdrawal Bipolar disorder Callus of [...] without esophagiti (more content not included)... Normal [facility] Comment on above: Result Comment: Elec tronically Signed By: Malick Ho PA-C\.br\Date and Time Signed: 02/24/24 12:36 EDT\.br\Electronically Co-Signed By: Didier Hooks M.D.\.br\Date and Time Co-Signed: 02/24/24 19:09 EDT ED Note-Physician ED Note-Physician Basic Information Time Seen: Alvaro BYRD, Rodrigue Granado 02/23/2024 18:36 Chief Complaint pt states urinary [...] and Complexity of Problems Differential Diagnosis: [] MDM Data External documents reviewed: [] My EKG [...] GORMAN In 3 days 02/26/2024 EDT [address] [place] [address]- Business (1) Additional Instructions: Call Dr for diagnosis based follow up Patient Education Acute Urinary Retention, Female, Dsjq-sp-Kogr Attestation Patient seen and evaluated by the physician bookkeeping assistant. Attending physician was present in the emergency department and supervised care. This visit was performed by both the physician and an APC. I performed all aspects of the MDM as documented. This report was transcribed using voice recognition software. Every effort was made to ensure accuracy, however, inadvertently computerized fisheries director mistakes may be present. Appropriate healthcare PPE [...] (hypertension) H (more content not included)... Normal [facility] Comment on above: Result Comment: Elec tronically Signed By: Rodrigue John PA-C\.br\Date and Time Signed: 02/23/24 23:35 EDT\.br\Electronically Co-Signed By: Didier Hooks M.D.\.br\Date and Time Co-Signed: 02/24/24 07:18 EDT ED Patient Summaryon ED Patient Summary ED Patient Summary [place] [address] Patient Discharge Instructions Person Information Name: MAEGAN DYE Age: 74 Years Arrival Date: 02/24/2024 11:16:14 Discharge Diagnosis: Bacterial infection, unspecified; UTI (urinary tract infection), bacterial Primary Care Physician: AZUL GORMAN CNP Provider Information Primary Provider: Didier Hooks M.D. Advanced Supervisor Boiler Repair:Malick Ho PA-C The exam and treatment you received in the Emergency Department were for an urgent problem and are not intended as complete care. It is important that you follow up with a doctor, nurse practitioner, or physician?s bookkeeping assistant for ongoing care. If your symptoms [...] Instructions: With: Address: When: [place] [address] Business (1) In 3 days 02/27/2024 In the event that this physician does not participate in your insurance network, please consult with your insurance company to find a nearby participating provider. Patient Education Materials: Urinary Tract Infection, Adult A MESSAGE TO ALL PATIENTS REGARDING OPIOIDS PRESCRIPTION OPIOIDS: WHAT YOU NEED TO KNOW Prescription opioids can be used to help relieve grlwmlqj-wf-nivbad pain and are often prescribed following a [...] be struggling with addiction, tell your health pet caregiver and as (more content not included)... Normal [facility] UA with Cult Rflxon 02-24-20 24 Bacteria Auto Ql (U) Trace Normal Trace Fish er [facility] Comment on above: Performed By: #### 4 [id number] #### [facility] [address] [place] [address] Bilirubin Ql (U) Negative Normal Negative [facility] Comment on above: Performed By: #### 4 [id number] #### [facility] [address] [place] [address] Clarity (U) Clear Normal Clear [facility] Comment on above: Performed By: #### 4 [id number] #### [facility] [address] [place] [address] Color (U) Colorless Abnormal Yellow [facility] Comment on above: Result Comment: Micr oscopic readings are only performed on those samples that meet specific criteria set forth by [facility]. Performed By: #### 4 [id number] #### [facility] [address] [place] [address] Epithelial cells.squamous Auto (Urine sed) [#/Area] 3-4 Invalid Interpretation Code [facility] Comment on above: Performed By: #### 4 [id number] #### [facility] [address] [place] [address] Glucose Ql (U) Negative Normal Negative [facility] Comment on above: Performed By: #### 4 [id number] #### [facility] [address] [place] [address] Hemoglobin Auto test strip (U) [Mass/Vol] Negative Normal Negative [facility] Comment on above: Performed By: #### 4 [id number] #### [facility] [address] [place] [address] Ketones Auto test strip Ql (U) Negative Normal Negative [facility] Comment on above: Performed By: #### 4 [id number] #### [facility] [address] [place] [address] Leukocyte esterase Auto test strip Ql (U) 250 Gretchen/uL Abnormal Negative [facility] Comment on above: Performed By: #### 4 [id number] #### [facility] [address] [place] [address] Mucus Auto Ql (U) Trace Normal Negative [facility] Comment on above: Performed By: #### 4 [id number] #### [facility] [address] [place] [address] Nitrite Auto test strip Ql (U) Negative Normal Negative [facility] Comment on above: Performed By: #### 4 [id number] #### [facility] [address] [place] [address] pH (U) 6.0 [pH] Invalid Interpretation Code 5.0-9.0 [facility] Comment on above: Performed By: #### 4 [id number] #### [facility] [address] [place] [address] Protein Ql (U) Negative Normal Negative [facility] Comment on above: Performed By: #### 4 [id number] #### [facility] [address] [place] [address] RBC Ql (U) 0-3 Normal 0-3 [facility] Comment on above: Performed By: #### 4 [id number] #### [facility] [address] [place], [place] [address] Specific gravity (U) [Rel density] 1.005 Invalid Interpretation Code 1.005-1.03 0 [facility] Comment on above: Performed By: #### 4 [id number] #### [facility] [address] [place] [address] Urobilinogen (U) [Mass/Vol] Negative Normal Negative [facility] Comment on above: Performed By: #### 4 [id number] #### [facility] [address] [place], [place] [address] WBC Auto (Urine sed) [#/Area] 0-5 Normal 0-5 [facility] Comment on above: Performed By: #### 4 [id number] #### [facility] [address] [place] [address] Type of Urine collection method Clean Catch Normal [facility] Comment on above: Performed By: #### 4 [id number] #### [facility] [address] [place] [address] URINALYSISOrdered By: SYSTEM SYSTEM on 02-24-2024 Bacteria Auto Ql (U) Trace /HPF Normal Trace/HPF [facility] UA Auto SS Bilirubin Ql (U) Negative Normal Negativemg /dL [facility] UA Auto SS Clarity (U) Clear (02/24/24 12:01 PM) Normal Clear [facility] UA Auto SS Color (U) Colorless 1 *ABN* (02/24/24 12:01 PM) Invalid Interpretation Code Yellow [facility] UA Auto SS Comment on above: Interpretive Data: M icroscopic readings are only performed on those samples that meet specific criteria set forth by [facility]. Epithelial cells.squamous Auto (Urine sed) [#/Area] 3-4 graded/HPF Invalid Interpretation Code [facility] UA Auto SS Glucose Ql (U) [...] PM) Invalid Interpretation Code 5.0 - 9.0 [facility] [place] [place] UA Auto SS Protein Ql (U) Negative Normal Negativemg /dL [facility] UA Auto SS RBC Ql (U) 0-3 graded/HPF Normal 0-3graded/ HPF [facility] UA Auto SS Specific gravity (U) [Rel density] 1.005 *NA* (02/24/24 12:01 PM) Invalid Interpretation Code 1.005 - 1.030 [facility] [place] UA Auto SS Urobilinogen (U) [Mass/Vol] Negative Normal Negativemg /dL [facility] [place] UA Auto SS WBC Auto (Urine sed) [#/Area] 0-5 graded/HPF Normal 0-5graded/ HPF FT UA Auto SS URINALYSISOrdered By: Malick Ho on 02-24-2024 UA Spec Desc Clean Catch (02/24/24 12:01 PM) Normal [facility] [place] UA Auto SS Work Phone: ED Clinical Summaryon 2023 ED Clinical Summary ED Clinical Summary [place] [id number] ED Clinical Summary Person Information Name: MAEGAN DYE/[facility] Age: 74 Years : 1950 Sex: Female Language: Peruvian PCP: AZUL GORMAN CNP Marital Status: Phone: [phone] Visit Id: Visit Reason: Urinary retention; Trouble [...] 02/23/2024 19:58:32 02/23/2024 19:58:32 02/23/2024 19:58:32 ADDRESS: [facility] [address] [facility] [id number] PHYS DOC NOTES: MEDICAL INFORMATION: Prescriptions Given: [...] 5. fluticasone nasal (fluticasone 0.05 mg/inh Nasal [place]) 2 Sprays Nasal Inhalation every day. each [...] EDUCATION INFORMATION: Instructions: Acute Urinary Retention, Female, Srko-up-Okza Follow up: With: Address: When: AZUL GORMAN [address] [place] [address] Business (1) In 3 days 02/26/2024 Comments: Call Dr for diagnosis based follow up DIAGNOSIS: Urinary retention Normal [facility] ED Patient Summaryon 024 ED Patient Summary ED Patient Summary [place] [id number] Patient Discharge Instructions Person Information Name: MAEGAN DYE Age: 74 Years Arrival Date: 02/23/2024 18:01:47 Discharge Diagnosis: Urinary retention Primary Care Physician: AZUL GORMAN CNP Provider Information Primary Provider: Didier Hooks M.D. Advanced Supervisor Boiler Repair:None The exam and treatment you received in the Emergency Department were for an urgent problem and are not intended as complete care. It is important that you follow up with a doctor, nurse practitioner, or physician?s bookkeeping assistant for ongoing care. If your symptoms [...] Follow-up Instructions: With: Address: When: [place] [address] Business (1) In 3 days 02/26/2024 Comments: Call Dr for diagnosis based follow up In the event that this physician does not participate in your insurance network, please consult with your insurance company to find a nearby participating provider. Patient Education Materials: Acute Urinary Retention, Female, Bdkm-fk-Bymo A MESSAGE TO ALL PATIENTS REGARDING OPIOIDS PRESCRIPTION OPIOIDS: WHAT YOU NEED TO KNOW Prescription opioids can be used to help relieve [id number] pain and are often prescribed following a [...] be struggling with addiction, tell your health pet caregiver and ask for gu (more content not included)... Normal [facility] UA with Cult Rflxon 02-23-20 Type of Urine collection method Clean Catch Normal [facility] Comment on above: Result Comment: rosy ected collection of specimen 02/23/2024 19:23:26 EDT MA Performed By: #### 4 [id number] #### [facility] [address] [place] [address] Bilirubin Ql (U) Negative Normal Negative [facility] Comment on above: Performed By: #### 4 [id number] #### [facility] [address] [place] [address] Clarity (U) Clear Normal Clear [facility] Comment on above: Performed By: #### 4 [id number] #### [facility] [address] [place] [address] Color (U) Colorless Abnormal Yellow [facility] Comment on above: Result Comment: Micr oscopic readings are only performed on those samples that meet specific criteria set forth by [facility]. Performed By: #### 4 [id number] #### [facility] [address] [place] [address] Glucose Ql (U) Negative Normal Negative [facility] Comment on above: Performed By: #### 4 [id number] #### [facility] [address] [place] [address] Hemoglobin Auto test strip (U) [Mass/Vol] Negative Normal Negative [facility] Comment on above: Performed By: #### 4 [id number] #### [facility] [address] [place] [address] Ketones Auto test strip Ql (U) Negative Normal Negative [facility] Comment on above: Performed By: #### 4 [id number] #### [facility] [address] [place] [address] Leukocyte esterase Auto test strip Ql (U) Negative Normal Negative [facility] Comment on above: Performed By: #### 4 [id number] #### [facility] [address] [place] [address] Nitrite Auto test strip Ql (U) Negative Normal Negative [facility] Comment on above: Performed By: #### 4 [id number] #### [facility] [address] [place] [address] pH (U) 6.0 [pH] Invalid Interpretation Code 5.0-9.0 [facility] Comment on above: Performed By: #### 4 [id number] #### [facility] [address] [place] [address] Protein Ql (U) Negative Normal Negative [facility] Comment on above: Performed By: #### 4 [id number] #### [facility] [address] [place] [address] Specific gravity (U) [Rel density] 1.003 Invalid Interpretation Code 1.005-1.03 0 [facility] Comment on above: Performed By: #### 4 [id number] #### [facility] [address] [place] [address] Urobilinogen (U) [Mass/Vol] Negative Normal Negative [facility] Comment on above: Performed By: #### 4 [id number] #### [facility] [address] [place] [address] Type of Urine collection method Choi Normal [facility] Comment on above: Performed By: #### 4 [id number] #### [facility] [address] [place] [address] URINALYSISOrdered By: SYSTEM SYSTEM on 02-23-2024 Bilirubin Ql (U) Negative Normal Negativemg /dL [facility] [place] UA Auto SS Clarity (U) Clear (02/23/24 7:07 PM) Normal Clear [facility] [place] UA Auto SS Color (U) Colorless 1 *ABN* (02/23/24 7:07 PM) Invalid Interpretation Code Yellow [facility] UA Auto SS Comment on above: Interpretive Data: M icroscopic readings are only performed on those samples that meet specific criteria set forth by [facility]. Glucose Ql (U) Negative Normal Negativemg [...] /dL FT UA Auto SS URINALYSISOrdered By: Rodrigue ferrara on 02-23-2024 UA Spec Desc Clean Catch 2 (02/23/24 7:07 PM) Normal [facility] [place] UA Auto SS Work Phone: Comment on above: Result Comment: rosy ected collection of specimen 02/23/2024 19:23:26 EDT AC Alanine aminotransferase [En zymatic activity/volume] in Serum or PlasmaOrdered By: Senthil Torres on 02-11-2024 ALT [Catalytic activity/Vol] 8 U/L Normal 7-52 [facility] Comment on above: Performed By: #### C MP, PT, CBC, PTT, HS TROP #### [facility] [address] Albumin [Mass/volume] in Ser um or Plasma by Bromocresol green (BCG) dye binding methoOrdered By: Senthil Torres on 02-11-2024 Albumin BCG dye [Mass/Vol] 4.1 g/dL 3.5-5.7 [facility] Alkaline phosphatase [Enzyma tic activity/volume] in Serum or PlasmaOrdered By: Senthil Torres on 02-11-2024 ALP [Catalytic activity/Vol] 103 U/L Normal 34-104 [facility] Comment on above: Performed By: #### C MP, PT, CBC, PTT, HS TROP #### [facility] [address] Amphetamine Screen Ql (U)Ord ered By: Senthil Torres on 02-11-2024 Amphetamines Ql (U) Negative Negative [facility] Aspartate aminotransferase [ Enzymatic activity/volume] in Serum or PlasmaOrdered By: Senthil Torres on 02-11-2024 AST [Catalytic activity/Vol] 16 U/L Normal 13-39 [facility] Comment on above: Performed By: #### C MP, PT, CBC, PTT, HS TROP #### [facility] [address] [place] [address] [place] Automated basophil %Ordered By: Senthil Torres on 02-11-2024 Basophils/100 WBC (Bld) 0.3 % Normal . [facility] Comment on above: Performed By: #### C MP, PT, CBC, PTT, HS TROP #### [address] Automated basophil countOrde red By: Senthil Torres on 02-11-2024 Basophils (Bld) [#/Vol] 0.0 10*3/uL Normal 0.0-0.2 [facility] Comment on above: Result Comment: PERF ORMED BY: [place] [address] PATHOLOGIST COIN MACHINE MECHANIC CORIE SILVA M.D. Performed By: #### C MP, PT, CBC, PTT, HS TROP #### [address] Automated blood monocyte cou ntOrdered By: Senthil Torres on 02-11-2024 Monocytes (Bld) [#/Vol] 0.5 10*3/uL Normal 0.0-0.8 [facility] Comment on above: Performed By: #### C MP, PT, CBC, PTT, HS TROP #### [address] Automated eosinophil %Ordere d By: Senthil Torres on 02-11-2024 Eosinophils/100 WBC (Bld) 1.5 % Normal . [facility] Comment on above: Performed By: #### C MP, PT, CBC, PTT, HS TROP #### [address] Automated eosinophil countOr dered By: Senthil Torres on 02-11-2024 Eosinophils (Bld) [#/Vol] 0.1 10*3/uL Normal 0.0-0.45 [facility] Comment on above: Performed By: #### C MP, PT, CBC, PTT, HS TROP #### [address] Automated monocyte %Ordered By: Senthil Torres on 02-11-2024 Monocytes/100 WBC (Bld) 6.3 % Normal . [facility] Comment on above: Performed By: #### C MP, PT, CBC, PTT, HS TROP #### [address] Automated neutrophil %Ordere d By: Senthil Torres on 02-11-2024 Neutrophils/100 WBC (Bld) 74.1 % Normal . [facility] Comment on above: Performed By: #### C MP, PT, CBC, PTT, HS TROP #### [facility] [address] Barbiturates [Presence] in U rine by Screen methodOrdered By: Senthil Torres on 02-11-2024 Barbiturates Screen Ql (U) Negative Negative [facility] Benzodiazepines Screen Ql (U )Ordered By: Senthil Torres on 02-11-2024 Benzodiazepines Ql (U) Negative Negative [facility] Benzoylecgonine [Presence] i n Urine by Screen methodOrdered By: Senthil Torres on 02-11-2024 Benzoylecgonine Screen Ql (U) Negative Negative [facility] Bilirubin Test strip Ql (U)O rdered By: Senthil Torres on 02-11-2024 Bilirubin Ql (U) Negative Negative [facility] Bilirubin.total [Mass/volume ] in Serum or PlasmaOrdered By: Senthil Torres on 02-11-2024 Bilirubin [Mass/Vol] 0.4 mg/dL Normal 0.3-1.0 [facility] Comment on above: Performed By: #### C MP, PT, CBC, PTT, HS TROP #### [facility] [address] Calcium [Mass/volume] in Ser um or PlasmaOrdered By: Senthil Torres on 02-11-2024 Calcium [Mass/Vol] 9.2 mg/dL Normal 8.6-10.3 [facility] Comment on above: Performed By: #### C MP, PT, CBC, PTT, HS TROP #### [facility] [address] [place] [id number] [place] Cannabinoids [Presence] in U rine by Screen methodOrdered By: Senthil Torres on 02-11-2024 Cannabinoids Screen Ql (U) Negative Negative [facility] Comment on above: These are unconfirme d results and should not be used for legal purposes. Drug Cut-Off Concentration: AMPH 1000 ng/mL PHILL 200 ng/mL ROBERT 200 ng/mL COCM 300 ng/mL OP 300 ng/mL PCP 25 ng/mL THC 20 ng/mL Carbon dioxide, total [Moles /volume] in Serum or PlasmaOrdered By: Senthil Torres on 02-11-2024 CO2 [Moles/Vol] 33.9 mmol/L High 21.0-31.0 [facility] Comment on above: Performed By: #### C MP, PT, CBC, PTT, HS TROP #### [address] Chloride [Moles/volume] in S clarisa or PlasmaOrdered By: Senthil Torres on 02-11-2024 Chloride [Moles/Vol] 95 mmol/L Low 98-107 [facility] Comment on above: Performed By: #### C MP, PT, CBC, PTT, HS TROP #### [address] Color of Urine by AutoOrdere d By: Senthil Torres on 02-11-2024 Color (U) Colorless Normal Yellow [facility] Comment on above: Order Comment: Name Collection Type:: Clean-Voided Midstream Performed By: #### C MP, PT, CBC, PTT, HS TROP #### [address] Complete Blood Count Auto Di ffon 02-11-2024 Mean Corpuscular HGB Conc 32.5 g/dL Normal 32.0-35.0 [facility] Comment on above: Performed By: #### C MP, PT, CBC, PTT, HS TROP #### [place] [address] [place] Monocytes/100 WBC (Bld) 17.16 % Normal 0.00-20.00 [facility] Comment on above: Performed By: #### C MP, PT, CBC, PTT, HS TROP #### [address] NRBC% 0.1 /100{WBC} Normal 0-0.5 [facility] Comment on above: Performed By: #### C MP, PT, CBC, PTT, HS TROP #### [address] Comprehensive Metabolic Pane isauro 02-11-2024 Albumin [Mass/Vol] 4.1 g/dL Normal 3.5-5.7 [facility] Comment on above: Performed By: #### C MP, PT, CBC, PTT, HS TROP #### [address] Creatinine Clr Calc Pharmacy 42.59 Normal [facility] Comment on above: Result Comment: PERF ORMED BY: [place] [address] PATHOLOGIST COIN MACHINE MECHANIC CORIE SILVA M.D. Performed By: #### C MP, PT, CBC, PTT, HS TROP #### [address] GFR/1.73 sq M.predicted MDRD (S/P/Bld) [Vol rate/Area] 59.094 mL/min/{1.73_m2} Normal [facility] Comment on above: Performed By: #### C MP, PT, CBC, PTT, HS TROP #### [address] Creatinine [Mass/volume] in Serum or PlasmaOrdered By: Senthil Torres on 02-11-2024 Creatinine [Mass/Vol] 0.99 mg/dL Normal 0.60-1.20 [facility] Comment on above: Performed By: #### C MP, PT, CBC, PTT, HS TROP #### [place] [address] [place] Drug Screen,Urineon 02-11-20 24 Amphetamine Screen,Urine Negative Normal Negative [facility] Comment on above: Performed By: #### C MP, PT, CBC, PTT, HS TROP #### [address] Barbiturate Screen,Urine Negative Normal Negative [facility] Comment on above: Performed By: #### C MP, PT, CBC, PTT, HS TROP #### [address] [place] [address] [place] Benzodiazepines Screen,Urine Negative Normal Negative [facility] Comment on above: Performed By: #### C MP, PT, CBC, PTT, HS TROP #### [address] Cannabinoid Screen,Urine Negative Normal Negative [facility] Comment on above: Result Comment: Thes e are unconfirmed results and should not be used for legal purposes. Drug Cut-Off Concentration: AMPH 1000 ng/mL PHILL 200 ng/mL ROBERT 200 ng/mL COCM 300 ng/mL OP 300 ng/mL PCP 25 ng/mL THC 20 ng/mL PERFORMED BY: [place] [address] PATHOLOGIST COIN MACHINE MECHANIC CORIE SILVA M.D. Performed By: #### C MP, PT, CBC, PTT, HS TROP #### [address] Cocaine Screen,Urine Negative Normal Negative [facility] Comment on above: Performed By: #### C MP, PT, CBC, PTT, HS TROP #### [address] Opiate Screen,Urine Positive High Negative [facility] Comment on above: Performed By: #### C MP, PT, CBC, PTT, HS TROP #### [address] Phencyclidine Screen,Urine Negative Normal Negative [facility] Comment on above: Performed By: #### C MP, PT, CBC, PTT, HS TROP #### [address] Erythrocyte distribution wid th [Ratio] by Automated countOrdered By: Senthil Torres on 02-11-2024 Erythrocyte distribution width (RBC) [Ratio] 12.9 % Normal 11.9-15.3 [facility] Comment on above: Performed By: #### C MP, PT, CBC, PTT, HS TROP #### [address] Erythrocytes [#/volume] in B lood by Automated countOrdered By: Senthil Torres on 02-11-2024 RBC (Bld) [#/Vol] 4.07 10*6/uL Normal 3.60-5.00 [facility] Comment on above: Performed By: #### C MP, PT, CBC, PTT, HS TROP #### [facility] [address] [place] [address] [place] Ethanol [Mass/volume] in Ser um or PlasmaOrdered By: Senthil Torres on 02-11-2024 Ethanol [Mass/Vol] mg/dL Normal [facility] Comment on above: Performed By: #### C MP, PT, CBC, PTT, HS TROP #### [facility] [address] [place] [address] [place] Ethanol [Mass/Vol] TNP [facility] Comment on above: Test not performed Ethyl Alcohol Profileon 01-24 Percent Ethanol Not performed Normal [facility] Comment on above: Result Comment: PERF ORMED BY: [place] [address] PATHOLOGIST COIN MACHINE MECHANIC CORIE SILVA M.D. Performed By: #### C MP, PT, CBC, PTT, HS TROP #### [facility] [address] [place] [address] [place] Glucose [Mass/volume] in Ser um or PlasmaOrdered By: Senthil Torres on 02-11-2024 Glucose [Mass/Vol] 139 mg/dL High 70-100 [facility] Comment on above: ADA recommended refe rence rangeRandom Glucose Reference Range is dependent on time and content of last meal. Glucose of more than 200 mg/dL in a nonstressed, ambulatory subject supports the diagnosis of Diabetes Mellitus. Result Comment: [place] om Glucose Reference Range is dependent on time and content of last meal. Glucose of more than 200 mg/dL in a nonstressed, ambulatory subject supports the diagnosis of Diabetes Mellitus. ADA recommended reference range Performed By: #### C MP, PT, CBC, PTT, HS TROP #### [facility] [address] [place] [address] [place] Glucose [Mass/volume] in Uri ne by Test stripOrdered By: Senthil Torres on 02-11-2024 Glucose Test strip (U) [Mass/Vol] Normal mg/dL Normal [facility] Hematocrit [Volume Fraction] of Blood by Automated countOrdered By: Senthil Torres on 02-11-2024 Hematocrit (Bld) [Volume fraction] 37.1 % Normal 34.0-46.4 [facility] Comment on above: Performed By: #### C MP, PT, CBC, PTT, HS TROP #### [facility] [address] Hemoglobin Test strip Ql (U) Ordered By: Senthil Torres on 02-11-2024 Hemoglobin Ql (U) Negative Negative [facility] Hemoglobin [Mass/volume] in BloodOrdered By: Senthil Torres on 02-11-2024 Hemoglobin (Bld) [Mass/Vol] 12.1 g/dL Normal 11.8-15.4 [facility] Comment on above: Performed By: #### C MP, PT, CBC, PTT, HS TROP #### [facility] [address] Ketones [Presence] in Urine by Test stripOrdered By: Senthil Torres on 02-11-2024 Ketones Ql (U) Negative Normal Negative [facility] Comment on above: Order Comment: Name Collection Type:: Clean-Voided Midstream Performed By: #### C MP, PT, CBC, PTT, HS TROP #### [place] [address] [place] Leukocyte esterase [Presence ] in Urine by Test stripOrdered By: Senthil Torres on 02-11-2024 Leukocyte esterase Test strip Ql (U) Negative Normal Negative [facility] Comment on above: Order Comment: Name Collection Type:: Clean-Voided Midstream Performed By: #### C MP, PT, CBC, PTT, HS TROP #### [place] [address] [place] Leukocytes [#/volume] correc kenyatta for nucleated erythrocytes in Blood by Automated counOrdered By: Senthil Torres on 02-11-2024 WBC corrected for nucl RBC Auto (Bld) [#/Vol] 7.6 10*3/uL 3.8-11.6 [facility] Leukocytes [#/volume] in Blo od by Automated countOrdered By: Senthil Torres on 02-11-2024 WBC (Bld) [#/Vol] 7.6 10*3/uL Normal 3.8-11.6 [facility] Comment on above: Performed By: #### C MP, PT, CBC, PTT, HS TROP #### [facility] [address] Lymphocytes [#/volume] in Bl ood by Automated countOrdered By: Senthil Torres on 02-11-2024 Lymphocytes (Bld) [#/Vol] 1.4 10*3/uL Normal 1.00-4.8 [facility] Comment on above: Performed By: #### C MP, PT, CBC, PTT, HS TROP #### [facility] [address] Lymphocytes/100 leukocytes i n Blood by Automated countOrdered By: Senthil Torres on 02-11-2024 Lymphocytes/100 WBC (Bld) 17.8 % Normal . [facility] Comment on above: Performed By: #### C MP, PT, CBC, PTT, HS TROP #### [facility] [address] [place] [address] MCH [Entitic mass] by Automa kenyatta countOrdered By: Senthil Torres on 02-11-2024 MCH (RBC) [Entitic mass] 29.6 pg Normal 24.7-34.3 [facility] Comment on above: Performed By: #### C MP, PT, CBC, PTT, HS TROP #### [facility] [address] [place] [address] MCHC Auto (RBC) [Mass/Vol]Or dered By: Senthil Torres on 02-11-2024 MCHC (RBC) [Mass/Vol] 32.5 g/dL 32.0-35.0 [facility] MCV [Entitic volume] by Auto mated countOrdered By: Senthil Torres on 02-11-2024 MCV (RBC) [Entitic vol] 91.2 fL Normal 80-100 [facility] Comment on above: Performed By: #### C MP, PT, CBC, PTT, HS TROP #### [facility] [address] [place] [address] [place] Monocyte distribution width [Entitic volume] in Blood by AutomatedOrdered By: Senthil Torres on 02-11-2024 Monocyte distribution width Auto (Bld) [Entitic vol] 17.16 % 0.00-20.00 [facility] Neutrophils [#/volume] in Bl ood by Automated countOrdered By: Senthil Torres on 02-11-2024 Neutrophils (Bld) [#/Vol] 5.7 10*3/uL Normal 1.8-7.7 [facility] Comment on above: Performed By: #### C MP, PT, CBC, PTT, HS TROP #### [facility] [address] Nitrite Test strip Ql (U)Ord ered By: Senthil Torres on 02-11-2024 Nitrite Ql (U) Negative Negative [facility] No Panel InformationOrdered By: Senthil Torres on 02-11-2024 Blood Gas Critical Value See comment [facility] Comment on above: Critical Value razo d on: 02/11/2024 at 15:53 Blood Gas Sample Site Venous Fir [facility] FiO2 28 % [facility] Oxygen Delivery Device Nasal cannula [facility] Venous Blood Base Excess 3.0 mmol/L -3.0-3.0 [facility] Venous Blood Oxygen Content 8.1 mmol/L 6.6-9.7 [facility] Venous Blood Oxygen Saturation 99.3 % High 73.0-76.0 [facility] Venous Blood Partial Pressure CO2 63.0 mm[Hg] High 38.0-50.0 [facility] Venous Blood Partial Pressure O2 184.2 mm[Hg] High 35.0-45.0 [facility] Venous Blood pH 7.31 Low 7.32-7.43 [facility] Estimated GFR (CKD-EPI) 59.094 mL/Min [facility] Creatinine Clearance (Chem 42.59 [facility] Nucleated erythrocytes [Pres ence] in Blood by Automated countOrdered By: Senthil Torres on 02-11-2024 Nucleated RBC Auto Ql (Bld) 0.1 /100{WBC} 0-0.5 [facility] Opiates [Presence] in Urine by Screen methodOrdered By: Senthil Torres on 02-11-2024 Opiates Screen Ql (U) Positive High Negative [facility] Phencyclidine Screen Ql (U)O rdered By: Senthil Torres on 02-11-2024 Phencyclidine Ql (U) Negative Negative [facility] Platelet mean volume [Entiti c volume] in Blood by Automated countOrdered By: Senthil Torres on 02-11-2024 Platelet mean volume (Bld) [Entitic vol] 7.1 fL Normal 6.3-10.7 [facility] Comment on above: Performed By: #### C MP, PT, CBC, PTT, HS TROP #### [facility] [address] Platelets [#/volume] in Bloo d by Automated countOrdered By: Senthil Torres on 02-11-2024 Platelets (Bld) [#/Vol] 254 10*3/uL Normal 150-450 [facility] Comment on above: Performed By: #### C MP, PT, CBC, PTT, HS TROP #### [facility] [address] [place] [address] [place] Potassium [Moles/volume] in Serum or PlasmaOrdered By: Senthil Torres on 02-11-2024 Potassium [Moles/Vol] 4.0 mmol/L Normal 3.5-5.1 [facility] Comment on above: Performed By: #### C MP, PT, CBC, PTT, HS TROP #### [facility] [address] Protein Test strip (U) [Mass /Vol]Ordered By: Senthil Torres on 02-11-2024 Protein (U) [Mass/Vol] Negative Negative [facility] Protein [Mass/volume] in Ser um or PlasmaOrdered By: Senthil Torres on 02-11-2024 Protein [Mass/Vol] 6.9 g/dL Normal 6.4-8.9 [facility] Comment on above: Performed By: #### C MP, PT, CBC, PTT, HS TROP #### [address] Serum globulin measurement b y calculation (mass/volume)Ordered By: Senthil Torres on 02-11-2024 Globulin (S) [Mass/Vol] 2.8 g/dL [facility] Comment on above: Performed By: #### C MP, PT, CBC, PTT, HS TROP #### [address] Serum or plasma albumin/glob ulin mass ratioOrdered By: Senthil Torres on 02-11-2024 Albumin/Globulin [Mass ratio] 1.5 {ratio} [facility] Comment on above: Performed By: #### C MP, PT, CBC, PTT, HS TROP #### [address] Serum or plasma anion gap de terminationOrdered By: Senthil Torres on 02-11-2024 Anion gap [Moles/Vol] 8.1 mmol/L Normal 6.0-15.0 [facility] Comment on above: Performed By: #### C MP, PT, CBC, PTT, HS TROP #### [address] Sodium [Moles/volume] in Ser um or PlasmaOrdered By: Senthil Torres on 02-11-2024 Sodium [Moles/Vol] 133 mmol/L Low 136-145 [facility] Comment on above: Performed By: #### C MP, PT, CBC, PTT, HS TROP #### [address] Specific gravity Test strip (U) [Rel density]Ordered By: Senthil Torres on 02-11-2024 Specific gravity (U) [Rel density] 1.005 1.001-1.03 0 [facility] Urea nitrogen [Mass/volume] in Serum or PlasmaOrdered By: Senthil Torres on 02-11-2024 Urea nitrogen [Mass/Vol] 9 mg/dL Normal 7-25 [facility] Comment on above: Performed By: #### C MP, PT, CBC, PTT, HS TROP #### [address] Urinalysison 02-11-2024 Bilirubin,Urine Negative Normal Negative [facility] Comment on above: Order Comment: Name Collection Type:: Clean-Voided Midstream Performed By: #### C MP, PT, CBC, PTT, HS TROP #### [address] Glucose Ql (U) Normal Normal Normal [facility] Comment on above: Order Comment: Name Collection Type:: Clean-Voided Midstream Performed By: #### C MP, PT, CBC, PTT, HS TROP #### [place] [address] [place] Nitrite,Urine Negative Normal Negative [facility] Comment on above: Order Comment: Name Collection Type:: Clean-Voided Midstream Performed By: #### C MP, PT, CBC, PTT, HS TROP #### [address] Occult Blood,Urine Negative Normal Negative [facility] Comment on above: Order Comment: Name Collection Type:: Clean-Voided Midstream Result Comment: PERF ORMED BY: [place] [address] PATHOLOGIST COIN MACHINE MECHANIC CORIE SILVA M.D. Performed By: #### C MP, PT, CBC, PTT, HS TROP #### [address] Protein,Urine Negative Normal Negative [facility] Comment on above: Order Comment: Name Collection Type:: Clean-Voided Midstream Performed By: #### C MP, PT, CBC, PTT, HS TROP #### [place] [address] [place] Specificy [place],Urine 1.005 Normal 1.001-1.03 0 [facility] Comment on above: Order Comment: Name Collection Type:: Clean-Voided Midstream Performed By: #### C MP, PT, CBC, PTT, HS TROP #### [address] Urobilinogen,Urine Normal Normal Normal [facility] Comment on above: Order Comment: Name Collection Type:: Clean-Voided Midstream Performed By: #### C MP, PT, CBC, PTT, HS TROP #### [facility] [address] Urine appearanceOrdered By: Senthil Torres on 02-11-2024 Appearance (U) Clear Normal Clear [facility] Comment on above: Order Comment: Name Collection Type:: Clean-Voided Midstream Performed By: #### C MP, PT, CBC, PTT, HS TROP #### [facility] [address] [place] [address] Urobilinogen Test strip (U) [Mass/Vol]Ordered By: Senthil Torres on 02-11-2024 Urobilinogen (U) [Mass/Vol] Normal mg/dL Normal [facility] Venous Blood GasOrdered By: Senthil Torres on 02-11-2024 CO2 [Moles/Vol] 32.9 mmol/L High 24.0-29.0 [facility] Comment on above: Performed By: #### C UU, ADDONUAPLUS #### [address] HCO3 (Bld) [Moles/Vol] 30.9 mmol/L High 23.0-29.0 [facility] Comment on above: Performed By: #### C UU, ADDONUAPLUS #### [facility] [address] [place] [address] Venous Blood Gason Oxygen Device Nasal Cannula Normal [facility] Comment on above: Performed By: #### C UU, ADDONUAPLUS #### [facility] [address] [place] [address] Respiratory Critical Normal [facility] Comment on above: Result Comment: Crit ical Value called on: 02/11/2024 at 15:53 PERFORMED BY: [place] [address] PATHOLOGIST COIN MACHINE MECHANIC CORIE SILVA M.D. Performed By: #### C UU, ADDONUAPLUS #### [facility] [address] [place] [address] VBG Base Excess 3.0 mmol/L Normal -3.0-3.0 [facility] Comment on above: Performed By: #### C UU, ADDONUAPLUS #### [address] VBG Draw Site Venous Normal [facility] Comment on above: Performed By: #### C UU, ADDONUAPLUS #### [address] VBG Frac Inspired O2 28 % Normal [facility] Comment on above: Performed By: #### C UU, ADDONUAPLUS #### [address] VBG O2 Content 8.1 mmol/L Normal 6.6-9.7 [facility] Comment on above: Performed By: #### C UU, ADDONUAPLUS #### [address] VBG Oxygen Saturation 99.3 % Off scale high 73.0-76.0 [facility] Comment on above: Performed By: #### C UU ADDONUAPLUS #### [address] VBG PCO2 63.0 mm[Hg] High 38.0-50.0 [facility] Comment on above: Performed By: #### C UU, ADDONUAPLUS #### [address] VBG PH Venous PH 7.31 Low 7.32-7.43 [facility] Comment on above: Performed By: #### C UU, ADDONUAPLUS #### [address] VBG PO2 184.2 mm[Hg] Off scale high 35.0-45.0 [facility] Comment on above: Performed By: #### C UU, ADDONUAPLUS #### [place] [address] [place] pH of Urine by Test stripOrd ered By: Senthil Torres on 02-11-2024 pH (U) 6.0 [pH] Normal 5.0-9.0 [facility] Comment on above: Order Comment: Name Collection Type:: Clean-Voided Midstream Performed By: #### C MP, PT, CBC, PTT, HS TROP #### [facility] [address] [place] [address] [place] .UA With Cult Reflexon 02-05 Bilirubin Ql (U) Negative Normal Negative [facility] Comment on above: Performed By: #### 1 [id number] #### [facility] [address] [place] [address] Clarity (U) CLEAR Normal Clear [facility] Comment on above: Performed By: #### 1 [id number] #### [facility] [address] [place] [address] Color (U) YELLOW Normal Yellow [facility] Comment on above: Performed By: #### 1 [id number] #### [facility] [address] [place] [address] Epithelial cells.squamous LM.HPF (Urine sed) [#/Area] 0-2 Normal [facility] Comment on above: Performed By: #### 1 [id number] #### [facility] [address] [place] [address] Glucose Ql (U) Negative Normal Negative [facility] Comment on above: Performed By: #### 1 [id number] #### [facility] [address] [place] [address] Hemoglobin Auto test strip (U) [Mass/Vol] Negative Normal Negative [facility] Comment on above: Performed By: #### 1 [id number] #### [facility] [address] [place] [address] Ketones Ql (U) Negative Normal Negative [facility] Comment on above: Performed By: #### 1 [id number] #### [facility] [address] [place] [address] Leukocyte esterase Auto test strip Ql (U) Negative Normal Negative [facility] Comment on above: Performed By: #### 1 [id number] #### [facility] [address] [place] [address] Nitrite Auto test strip Ql (U) Negative Normal Negative [facility] Comment on above: Performed By: #### 1 [id number] #### [facility] [address] [place] [address] pH (U) 6.0 [pH] Normal 5.0-9.0 [facility] Comment on above: Performed By: #### 1 [id number] #### [facility] [address] [place] [address] Protein Ql (U) Negative Normal Negative [facility] Comment on above: Performed By: #### 1 [id number] #### [facility] [address] [place] [address] RBC Ql (U) 0-3 Normal 0-3 [facility] Comment on above: Performed By: #### 1 [id number] #### [facility] [address] [place] [address] Specific gravity (U) [Rel density] 1.020 Normal 1.005-1.03 0 [facility] Comment on above: Performed By: #### 1 [id number] #### [facility] [address] [place] [address] Type of Urine collection method Clean Catch Normal [facility] Comment on above: Performed By: #### 1 [id number] #### [facility] [address] [place] [address] Urobilinogen Qn (U) 0.2 mg/dL Normal 0.0-1.0 [facility] Comment on above: Performed By: #### 1 [id number] #### [facility] [address] [place] [address] WBC LM.HPF (Urine sed) [#/Area] 0-5 Normal 0-5 [facility] Comment on above: Performed By: #### 1 [id number] #### [facility] [address] [place] [address] BMPon 02-06-2024 Anion gap [Moles/Vol] 8 mmol/L Normal 6-16 [facility] Comment on above: Performed By: #### 2 [id number] #### [facility] [address] [place] [address] Calcium [Mass/Vol] 8.9 mg/dL Normal 8.9-11.1 [facility] Comment on above: Performed By: #### 2 [id number] #### [facility] [address] [place] [address] Chloride [Moles/Vol] 100 mmol/L Low 101-111 [facility] Comment on above: Performed By: #### 2 [id number] #### [facility] [address] [place] [address] CO2 [Moles/Vol] 31 mmol/L Normal 21-31 [facility] Comment on above: Performed By: #### 2 [id number] #### [facility] [address] [place] [address] Creatinine [Mass/Vol] 1.0 mg/dL Normal 0.5-1.3 [facility] Comment on above: Performed By: #### 2 [id number] #### [facility] [address] [place] [address] Glucose [Mass/Vol] 102 mg/dL Normal 55-199 [facility] Comment on above: Performed By: #### 2 [id number] #### [facility] [address] [place] [address] Potassium [Moles/Vol] 4.6 mmol/L Normal 3.5-5.3 [facility] Comment on above: Performed By: #### 2 [id number] #### [facility] [address] [place] [address] Sodium [Moles/Vol] 134 mmol/L Low 135-145 [facility] Comment on above: Performed By: #### 2 [id number] #### [facility] [address] [place] [address] Urea nitrogen [Mass/Vol] 16 mg/dL Normal 5-21 [facility] Comment on above: Performed By: #### 2 [id number] #### [facility] [address] [place] [address] Urea nitrogen/Creatinine [Mass ratio] 16 No Units Normal 10-20 [facility] Comment on above: Performed By: #### 2 [id number] #### [facility] [address] [place] [address] CBC w/ Auto Diffon 4 Basophils/100 WBC (Bld) 0.2 % Normal 0.0-2.0 [facility] Comment on above: Performed By: #### 2 [id number] #### [facility] [address] [place] [address] Basophils/Leukocytes Auto (Bld) [Pure # fraction] 0.0 E9/L Normal 0.0-0.2 [facility] Comment on above: Performed By: #### 2 [id number] #### [facility] [address] [place] [address] Eosinophils (Bld) [#/Vol] 0.2 E9/L Normal 0.0-0.5 [facility] Comment on above: Performed By: #### 2 [id number] #### [facility] [address] [place] [address] Eosinophils/100 WBC (Bld) 2.3 % Normal 0.0-8.0 [facility] Comment on above: Performed By: #### 2 [id number] #### [facility] [address] [place] [address] Erythrocyte distribution width (RBC) [Ratio] 12.8 % Normal 10.9-14.2 [facility] Comment on above: Performed By: #### 2 [id number] #### [facility] [address] [place] [address] Hematocrit (Bld) [Volume fraction] 36.8 % Normal 34.0-46.0 [facility] Comment on above: Performed By: #### 2 [id number] #### [facility] [address] [place] [address] Hemoglobin (Bld) [Mass/Vol] 12.0 g/dL Normal 12.0-16.0 [facility] Comment on above: Performed By: #### 2 [id number] #### [facility] [address] [place] [address] Lymphocytes (Bld) [#/Vol] 1.5 E9/L Normal 1.0-4.0 [facility] Comment on above: Performed By: #### 2 [id number] #### [facility] [address] [place] [address] Lymphocytes/100 WBC (Bld) 21.1 % Normal 14.0-50.0 [facility] Comment on above: Performed By: #### 2 [id number] #### [facility] [address] [place] [address] MCH (RBC) [Entitic mass] 29.4 pg Normal 27.0-34.0 [facility] Comment on above: Performed By: #### 2 [id number] #### [facility] [address] [place] [address] MCHC (RBC) [Mass/Vol] 32.5 g/dL Normal 31.4-36.0 [facility] Comment on above: Performed By: #### 2 [id number] #### [facility] [address] [place] [address] MCV (RBC) [Entitic vol] 90.3 fL Normal 80.0-100.0 [facility] Comment on above: Performed By: #### 2 [id number] #### [facility] [address] [place] [address] Monocytes (Bld) [#/Vol] 0.7 E9/L Normal 0.2-1.0 [facility] Comment on above: Performed By: #### 2 [id number] #### [facility] [address] [place] [address] Neutrophils (Bld) [#/Vol] 4.8 E9/L Normal 2.0-7.5 [facility] Comment on above: Performed By: #### 2 [id number] #### [facility] [address] [place] [address] Neutrophils/100 WBC (Bld) 67.3 % Normal 36.0-75.0 [facility] Comment on above: Performed By: #### 2 [id number] #### [facility] [address] [place] [address] Platelet mean volume (Bld) [Entitic vol] 7.0 fL Normal 6.4-10.8 [facility] Comment on above: Performed By: #### 2 [id number] #### [facility] [address] [place] [address] Platelets (Bld) [#/Vol] 263.0 E9/L Normal 150.0-500. 0 [facility] Comment on above: Performed By: #### 2 [id number] #### [facility] [address] [place] [address] RBC (Bld) [#/Vol] 4.1 E12/L Low 4.3-5.9 [facility] Comment on above: Performed By: #### 2 [id number] #### [facility] [address] [place] [address] WBC corrected for nucl RBC Auto (Bld) [#/Vol] 7.2 E9/L Normal 4.0-11.0 [facility] Comment on above: Performed By: #### 2 [id number] #### [facility] [address] [place] [address] CHEMISTRYOrdered By: Evan Michaud on 02-06-2024 Anion gap [Moles/Vol] 8 mmol/L Normal 6 - 16 mEq/L [facility] [place] [place] Chem S Calcium [Mass/Vol] 8.9 mg/dL Normal 8.9 - 11. 1 mg/dL [facility] [place] Chem S Chloride [Moles/Vol] 100 mmol/L Low 101 - 1 11 mmol/L [facility] [place] [place] Chem S CO2 [Moles/Vol] 31 mmol/L Normal 21 - 31 mmol/L [facility] [place] [place] Chem S Creatinine [Mass/Vol] 1.0 mg/dL Normal 0.5 - 1.3 mg/dL [facility] [place] [place] Chem S eGFR 58 mL/min/1.73 m2 Low >=59mL/min /1.73 m2 [facility] [place] [place] Chem S Glucose [Mass/Vol] 102 mg/dL Normal 55 - 199 mg/dL [facility] [place] Chem S Potassium [Moles/Vol] 4.6 mmol/L Normal 3.5 - 5.3 mmol/L [facility] [place] Chem S Sodium [Moles/Vol] 134 mmol/L Low 135 - 145 mmol/L [facility] [place] Chem S Urea nitrogen [Mass/Vol] 16 mg/dL Normal 5 - 21 mg/dL [facility] [place] Chem S Urea nitrogen/Creatinine [Mass ratio] 16 mg/mg Normal 10 - 20 [facility] [place] Chem S ED Clinical Summaryon 2023 ED Clinical Summary ED Clinical Summary [place] [id number] ED Clinical Summary Person Information Name: MAEGAN DYE/[facility] Age: 74 Years : 1950 Sex: Female Language: Peruvian PCP: AZUL GORMAN CNP Marital Status: Phone: [phone] Visit Id: Visit Reason: Urinary frequency; CAN'T [...] 02/06/2024 10:48:01 02/06/2024 10:48:01 02/06/2024 10:48:01 ADDRESS: [facility] [address] [facility] [id number] PHYS DOC NOTES: MEDICAL INFORMATION: Prescriptions Given: New Medications [facility]/pharmacy #[id number], [address] [facility] [place], [place] [id number], [phone] cephalexin (Keflex 500 mg Cap) 1 Capsules [...] 5. fluticasone nasal (fluticasone 0.05 mg/inh Nasal [place]) 2 Sprays Nasal Inhalation every day. each [...] EDUCATION INFORMATION: Instructions: Urinary Tract Infection, Adult, [id number] Follow up: With: Address: When: AZUL [place] [id number] [facility] (1) In 3 days DIAGNOSIS: Dysuria Normal [facility] ED Note-Physicianon 02-06-20 ED Note-Physician ED Note-Physician [...] day(s), # 10 cap(s), Refills(s) 0, Pharmacy: [facility]/pharmacy #[id number], 162, cm, 02/06/24 7:46:00 EDT, Height/Length Dosing, 61, kg, 02/06/24 7:46:00 EDT, Weight Dosing ondansetron, 4 mg = 1 tab(s), Tab-Dis, SubLingual, Once, Stop date 02/06/24 8:42:00 EDT, Start date 02/06/24 8:42:00 EDT .UA With Cult Reflex Basic Metabolic Panel CBC w/ Auto Diff eGFR UA with Cult Rflx Urine Culture Medications Administered Given [id number] [F], 4 mg, SubLingual Disposition Plan Discharge Prescription List Prescriptions Keflex 500 mg Cap, 500 mg= 1 cap(s), Oral, q12hr Follow-up With When Contact Information AZUL GORMAN In 3 days [address] [place] [phone] Business (1) Additional Instructions: Patient Education Urinary Tract Infection, Adult, Npkq-[id number] Problem List/Past Medical History Ongoing Acute UTI [...] Vitamin D deficiency Historical Accidental fall Agent [place] ASTHMA Benzodiazepine withdrawal Bipolar disorder Callus of [...] cortical strut (more content not included)... Normal [facility] Comment on above: Result Comment: Elec tronically Signed By: Chandan Adhikari DO\.br\Date and Time Signed: 02/06/24 10:40 EDT ED Patient Summaryon 024 ED Patient Summary ED Patient Summary [address] [address] Patient Discharge Instructions Person Information Name: MAEGAN DYE Age: 74 Years Arrival Date: 02/06/2024 07:33:06 Discharge Diagnosis: Dysuria Primary Care Physician: AZUL GORMAN CNP Provider Information Primary Provider: Chandan Adhikari DO Advanced Supervisor Boiler Repair:None The exam and treatment you received in the Emergency Department were for an urgent problem and are not intended as complete care. It is important that you follow up with a doctor, nurse practitioner, or physician?s bookkeeping assistant for ongoing care. If your symptoms [...] Follow-up Instructions: With: Address: When: AZUL GORMAN [address] [place] [address] [place] [phone] Business (1) In 3 days In the event that this physician does not participate in your insurance network, please consult with your insurance company to find a nearby participating provider. Patient Education Materials: Urinary Tract Infection, Adult, Mkuh-ps-Ffzr A MESSAGE TO ALL PATIENTS REGARDING OPIOIDS PRESCRIPTION OPIOIDS: WHAT YOU NEED TO KNOW Prescription opioids can be used to help relieve uzkpyyok-oo-djtmmn pain and are often prescribed following a [...] be struggling with addiction, tell your health pet caregiver and ask for guidance or call [employer]?S National Helpline at 6-879-932-HELP. v Source: [place] (more content not included)... Normal [facility] Extra Blueon 02-06-2024 Tube Collected Plasma Yes Invalid Interpretation Code [facility] Comment on above: Performed By: #### 1 [id number] #### [facility] [address] [place] [address] HEMATOLOGYOrdered By: SYSTEM SYSTEM on 02-06-2024 Basophils/100 [...] Bilirubin Ql (U) cancel Invalid Interpretation Code [facility] Comment on above: Performed By: #### 4 [id number] #### [facility] [address] [place] [address] Clarity (U) cancel Invalid Interpretation Code [facility] Comment on above: Performed By: #### 4 [id number] #### [facility] [address] [place] [address] Color (U) cancel Invalid Interpretation Code [facility] Comment on above: Result Comment: Micr oscopic readings are only performed on those samples that meet specific criteria set forth by [facility]. Performed By: #### 4 [id number] #### [facility] [address] [place] [address] Glucose Ql (U) cancel Invalid Interpretation Code [facility] Comment on above: Performed By: #### 4 [id number] #### [facility] [address] [place] [address] Hemoglobin Auto test strip (U) [Mass/Vol] cancel Invalid Interpretation Code [facility] Comment on above: Performed By: #### 4 [id number] #### [facility] [address] [place] [address] Ketones Auto test strip Ql (U) cancel Invalid Interpretation Code [facility] Comment on above: Performed By: #### 4 [id number] #### [facility] [address] [place] [address] Leukocyte esterase Auto test strip Ql (U) cancel Invalid Interpretation Code [facility] Comment on above: Performed By: #### 4 [id number] #### [facility] [address] [place] [address] Nitrite Auto test strip Ql (U) cancel Invalid Interpretation Code [facility] Comment on above: Performed By: #### 4 [id number] #### [facility] [address] [place] [address] pH (U) cancel Invalid Interpretation Code 5.0-9.0 [facility] Comment on above: Performed By: #### 4 [id number] #### [facility] [address] [place] [address] Protein Ql (U) cancel Invalid Interpretation Code [facility] Comment on above: Performed By: #### 4 [id number] #### [facility] [address] [place] [address] Specific gravity (U) [Rel density] cancel Invalid Interpretation Code 1.005-1.03 0 [facility] Comment on above: Performed By: #### 4 [id number] #### [facility] [address] [place] [address] Urobilinogen (U) [Mass/Vol] cancel Invalid Interpretation Code [facility] Comment on above: Performed By: #### 4 [id number] #### [facility] [address] [place] [address] Type of Urine collection method cancel Invalid Interpretation Code [facility] Comment on above: Result Comment: Canc el order to run on backup instrument. Performed By: #### 4 [id number] #### [facility] [address] [place] [address] URINALYSISOrdered By: Marce Murphy on 02-06-2024 Bilirubin Ql (U) cancel Invalid Interpretation Code [facility] [place] UA Auto SS Clarity (U) cancel Invalid Interpretation Code [facility] [place] [place] UA Auto SS Color (U) cancel Invalid Interpretation Code [facility] [place] [place] UA Auto SS Comment on above: Interpretive Data: M icroscopic readings are only performed on those samples that meet specific criteria set forth by [facility]. Glucose Ql (U) cancel Invalid Interpretation Code [facility] [place] UA Auto SS Hemoglobin Auto test strip (U) [Mass/Vol] cancel Invalid Interpretation Code [facility] UA Auto SS Ketones Auto test strip Ql (U) cancel Invalid Interpretation Code [facility] UA Auto SS Leukocyte esterase Auto test strip Ql (U) cancel Invalid Interpretation Code [facility] UA Auto SS Nitrite Auto test strip Ql (U) cancel Invalid Interpretation Code [facility] UA Auto SS pH (U) cancel Invalid Interpretation Code 5.0 - 9.0 [facility] UA Auto SS Protein Ql (U) cancel Invalid Interpretation Code [facility] Auto SS Specific gravity (U) [Rel density] cancel Invalid Interpretation Code 1.005 - 1.030 [facility]A Auto SS Urobilinogen (U) [Mass/Vol] cancel Invalid Interpretation Code [facility] UA Auto SS URINALYSISOrdered By: Robert Jamison on 02-06-2024 Bilirubin Ql (U) Negative (02/06/24 7:47 AM) Normal Negative [facility] Auto SS Clarity (U) Clear (02/06/24 7:47 AM) Normal Clear [facility] Auto SS Color (U) Yellow (02/06/24 7:47 AM) Normal Yellow [facility] Auto SS Epithelial cells.squamous LM.HPF (Urine sed) [#/Area] 0-2 /HPF Normal [facility] Auto SS Glucose Ql (U) Negative Normal Negativemg /dL [facility] Auto SS Hemoglobin Auto test strip (U) [Mass/Vol] Negative (02/06/24 7:47 AM) Normal Negative [facility] Auto SS Ketones Ql (U) Negative Normal Negativemg /dL [facility] Auto SS Leukocyte esterase Auto test strip Ql (U) Negative Normal NegativeLe u/uL [facility] Auto SS Nitrite Auto test strip Ql (U) Negative Normal Negativemg /dL [facility] Auto SS pH (U) 6.0 (02/06/24 7:47 AM) Normal 5.0 - 9.0 [facility] UA Auto SS Protein Ql (U) Negative Normal Negativemg /dL [facility] Auto SS RBC Ql (U) 0-3 /HPF Normal 0-3/HPF [facility] U[facility] Auto SS Specific gravity (U) [Rel density] 1.020 (02/06/24 7:47 AM) Normal 1.005 - 1.030 [facility] UA Auto SS UA Spec Desc Clean Catch (02/06/24 7:47 AM) Normal [facility] Auto SS Urobilinogen Qn (U) 0.2 mg/dL Normal 0.0 - 1. 0 mg/dL [facility] [place] UA Auto SS WBC LM.HPF (Urine sed) [#/Area] 0-5 /HPF Normal 0-5/HPF [facility] [place] UA Auto SS URINALYSISOrdered By: Jace Avila on 02-06-2024 UA Spec Desc cancel Invalid Interpretation Code [facility] [place] UA Auto SS Comment on above: Result Comment: Canc el order to run on backup instrument. eGFRon 02-06-2024 eGFR 58 mL/min/1.73 m2 Low >=59 [facility] Comment on above: Order Comment: Order added by Discern Expert. Performed By: #### 1 [id number] #### [facility] [address] [place] [address] C Urineon 02-01-2024 Bacteria identified Cx Nom (U) Microbiology PROCEDURE: Urine Culture [R1] SOURCE: U CleanCatch BODY SITE: COLLECTED DATE/TIME: 01/30/2024 15:00 EDT RECEIVED DATE/TIME: 01/30/2024 18:02 EDT START DATE/TIME: 01/30/2024 18:02 EDT FREE TEXT SOURCE: CECI REYES DO, DO, CEIC FINAL REPORTS Final Report [] Verified Date/Time: [...] Locations R1: This test was performed at: [facility], [address] [place] [address], [facility]- , , [facility] Comment on above: Performed By: #### 2 [id number] ####[facility] [address] [place] [address] ED Clinical Summaryon 2023 ED Clinical Summary ED Clinical Summary [address] [address] ED Clinical Summary Person Information Name: MAEGAN DYE/[place] Age: 74 Years : 1950 Sex: Female Language: Peruvian PCP: AZUL GORMAN CNP Marital Status: Phone: [phone] Visit Id: Visit Reason: Post surgical problem; [...] 01/28/2024 18:39:42 01/28/2024 18:39:42 01/28/2024 18:39:42 ADDRESS: [facility] [address] [facility] [id number] [facility] DOC NOTES: MEDICAL INFORMATION: Prescriptions Given: Medications [...] 5. fluticasone nasal (fluticasone 0.05 mg/inh Nasal [place]) 2 Sprays Nasal Inhalation every day. each nostril. Refills: 5. Misc Prescription (Straight Catheters & Supplies) Use daily, as directed.. Refills: 5. Misc Prescription (walking boot) right foot knee high walking Size small boot dx m21.969, m14.679 [facility]ax to [facility]. Refills: 0. multivitamin with minerals (Therapeutic Multiple [...] EDUCATION INFORMATION: Instructions: Follow up: DIAGNOSIS: Normal [facility] ED Patient Education Noteon 01-28-2024 ED Patient Education Note ED Patient Education Note Normal [facility] ED Patient Summaryon 024 ED Patient Summary ED Patient Summary [place] [id number] Patient Discharge Instructions Person Information Name: MAEGAN DYE Age: 74 Years Arrival Date: 01/28/2024 18:06:56 Discharge Diagnosis: Primary Care Physician: AZUL GORMAN CNP Provider Information Primary Provider: Advanced Supervisor Boiler Repair:None The exam and treatment you received in the Emergency Department were for an urgent problem and are not intended as complete care. It is important that you follow up with a doctor, nurse practitioner, or physician?s bookkeeping assistant for ongoing care. If your symptoms [...] opioids can be used to help relieve yhjlekgw-fa-efnuaj pain and are often prescribed following a [...] be struggling with addiction, tell your health pet caregiver and ask for guidance or call [employer]?S National Helpline at 8-000-821-BBGG. n Source: [place] Department of Health and Human Services/Center for Disease Control & Prevention [facility] Medications Given: Medication Dose Route No medications found. Medication Inf (more content not included)... Normal [facility] CBC w/ Auto Diffon 4 Basophils/100 WBC (Bld) 0.2 % Normal 0.0-2.0 [facility] Comment on above: Performed By: #### 2 [id number] #### [facility] [address] [place] [address] Basophils/Leukocytes Auto (Bld) [Pure # fraction] 0.0 E9/L Normal 0.0-0.2 [facility] Comment on above: Performed By: #### 2 [id number] #### [facility] [address] [place] [address] Eosinophils (Bld) [#/Vol] 0.3 E9/L Normal 0.0-0.5 [facility] Comment on above: Performed By: #### 2 016355 #### [facility] [address] [place] [address] Eosinophils/100 WBC (Bld) 3.9 % Normal 0.0-8.0 [facility] Comment on above: Performed By: #### 2 820322 #### [facility] [address] [place] [address] Erythrocyte distribution width (RBC) [Ratio] 12.9 % Normal 10.9-14.2 [facility] Comment on above: Performed By: #### 2 017910 #### [facility] [address] [place] [address] Hematocrit (Bld) [Volume fraction] 35.8 % Normal 34.0-46.0 [facility] Comment on above: Performed By: #### 2 [id number] #### [facility] [address] [place] [address] Hemoglobin (Bld) [Mass/Vol] 12.1 g/dL Normal 12.0-16.0 [facility] Comment on above: Performed By: #### 2 383031 #### [facility] [address] [place] [address] Lymphocytes (Bld) [#/Vol] 1.5 E9/L Normal 1.0-4.0 [facility] Comment on above: Performed By: #### 2 653523 #### [facility] [address] [place] [address] Lymphocytes/100 WBC (Bld) 20.9 % Normal 14.0-50.0 [facility] Comment on above: Performed By: #### 2 089133 #### [facility] [address] [place] [address] MCH (RBC) [Entitic mass] 30.6 pg Normal 27.0-34.0 [facility] Comment on above: Performed By: #### 2 369143 #### [facility] [address] [place] [address] MCHC (RBC) [Mass/Vol] 33.8 g/dL Normal 31.4-36.0 [facility] Comment on above: Performed By: #### 2 908387 #### [facility] [address] [place] [address] MCV (RBC) [Entitic vol] 90.4 fL Normal 80.0-100.0 [facility] Comment on above: Performed By: #### 2 541534 #### [facility] [address] [place] [address] Monocytes (Bld) [#/Vol] 0.7 E9/L Normal 0.2-1.0 [facility] Comment on above: Performed By: #### 2 828135 #### [facility] [address] [place] [address] Neutrophils (Bld) [#/Vol] 4.8 E9/L Normal 2.0-7.5 [facility] Comment on above: Performed By: #### 2 032084 #### [facility] [address] [place] [address] Neutrophils/100 WBC (Bld) 64.8 % Normal 36.0-75.0 [facility] Comment on above: Performed By: #### 2 284702 #### [facility] [address] [place] [address] Platelet 219.0 E9/L Normal 150.0-500. 0 [facility] Comment on above: Performed By: #### 2 639233 #### [facility] [address] [place] [address] Platelet mean volume (Bld) [Entitic vol] 7.5 fL Normal 6.4-10.8 [facility] Comment on above: Performed By: #### 2 684499 #### [facility] [address] [place] [address] RBC (Bld) [#/Vol] 4.0 E12/L Low 4.3-5.9 [facility] Comment on above: Performed By: #### 2 365756 #### [facility] [address] [place] [address] WBC corrected for nucl RBC Auto (Bld) [#/Vol] 7.4 E9/L Normal 4.0-11.0 [facility] Comment on above: Performed By: #### 2 273766 #### [facility] [address] [place] [address] CHEMISTRYOrdered By: SYSTEM SYSTEM on 01-12-2024 Albumin [...] 01-12-2024 Albumin [Mass/Vol] 3.9 g/dL Normal 3.3-5.0 [facility] Comment on above: Performed By: #### 2 699475 #### [facility] [address] [place] [address] Albumin/Globulin (S) [Mass conc ratio] 1.4 Normal 1.1-2.2 [facility] Comment on above: Performed By: #### 2 505644 #### [facility] [address] [place] [address] ALP [Catalytic activity/Vol] 88 Int._Unit/L Normal 21-98 [facility] Comment on above: Performed By: #### 2 176658 #### [facility] [address] [place] [address] ALT No additional P-5'-P [Catalytic activity/Vol] 8 Int._Unit/L Normal 6-46 [facility] Comment on above: Performed By: #### 2 641852 #### [facility] [address] [place] [address] Anion gap [Moles/Vol] 10 mmol/L Normal 6-16 [facility] Comment on above: Performed By: #### 2 587247 #### [facility] [address] [place] [address] AST [Catalytic activity/Vol] 17 Int._Unit/L Normal 5-43 [facility] Comment on above: Performed By: #### 2 263864 #### [facility] [address] [place] [address] Bilirubin [Mass/Vol] 0.5 mg/dL Normal 0.0-1.1 [facility] Comment on above: Performed By: #### 2 619323 #### [facility] [address] [place] [address] Calcium [Mass/Vol] 8.8 mg/dL Low 8.9-11.1 [facility] Comment on above: Performed By: #### 2 720879 #### [facility] [address] [place] [address] Chloride [Moles/Vol] 102 mmol/L Normal 101-111 [facility] Comment on above: Performed By: #### 2 088044 #### [facility] [address] [place] [address] CO2 [Moles/Vol] 29 mmol/L Normal 21-31 [facility] Comment on above: Performed By: #### 2 075175 #### [facility] [address] [place] [address] Creatinine [Mass/Vol] 0.9 mg/dL Normal 0.5-1.3 [facility] Comment on above: Performed By: #### 2 081107 #### [facility] [address] [place] [address] Globulin (S) [Mass/Vol] 2.7 g/dL Normal 1.4-4.0 [facility] Comment on above: Performed By: #### 2 692159 #### [facility] [address] [place] [address] Glucose [Mass/Vol] 151 mg/dL Normal 55-199 [facility] Comment on above: Performed By: #### 2 580811 #### [facility] [address] [place] [address] Potassium [Moles/Vol] 3.5 mmol/L Normal 3.5-5.3 [facility] Comment on above: Performed By: #### 2 792741 #### [facility] [address] [place] [address] Protein [Mass/Vol] 6.6 g/dL Normal 6.0-7.8 [facility] Comment on above: Performed By: #### 2 005645 #### [facility] [address] [place] [address] Sodium [Moles/Vol] 137 mmol/L Normal 135-145 [facility] Comment on above: Performed By: #### 2 613308 #### [facility] [address] [place] [address] Urea nitrogen [Mass/Vol] 12 mg/dL Normal 5-21 [facility] Comment on above: Performed By: #### 2 232383 #### [facility] [address] [place] [address] Urea nitrogen/Creatinine [Mass ratio] 13 No Units Normal 10-20 [facility] Comment on above: Performed By: #### 2 177269 #### [facility] [address] [place] [address] [facility] [place] CBC W/ AUTO DIFFon 12-24 EOSINOPHILS/100 LEUKOCYTES:NFR:PT:BLD: QN:AUTOMATED COUNT 3.9 % 0.0 - 8.0 % [facility] EOSINOPHILS:NCNC:PT:BL D:QN: 0.3 [facility] BASOPHILS/LEUKOCYTES:N FR.DF:PT:BLD:QN:AUTOMA KENYATTA COUNT 0.0 [facility] ERYTHROCYTE MEAN CORPUSCULAR HEMOGLOBIN CONCENTRATION:MCNC:PT: RBC:QN 33.8 [facility] ERYTHROCYTE MEAN CORPUSCULAR HEMOGLOBIN:ENTMASS:PT: RBC:QN 30.6 pg 27.0 - 34.0 pg [facility] ERYTHROCYTE MEAN CORPUSCULAR VOLUME:ENTVOL:PT:RBC:Q N:AUTOMATED COUNT 90.4 fL 80.0 - 100.0 fL [facility] ERYTHROCYTES:NCNC:PT:B LD:QN:AUTOMATED COUNT 4.0 Low [facility] HEMOGLOBIN:MCNC:PT:BLD :QN: 12.1 [facility] LEUKOCYTES 7.4 [facility] MONOCYTES:NCNC:PT:BLD: QN:AUTOMATED COUNT 0.7 [facility] NEUTROPHILS:NCNC:PT:BL D:QN:AUTOMATED COUNT 4.8 [facility] Interpretation and review of laboratory results Abnormal [facility] LYMPHOCYTES:NCNC:PT:BL D:QN: 1.5 [facility] Platelets (Bld) [#/Vol] 219.0 10*3/uL [facility] Original Ordering Provider: DO Jose GREENBERG [facility] HEMATOLOGYOrdered By: SYSTEM SYSTEM on 01-12-2024 [...] mGy = na DAP = na Normal [facility] eGFRon 01-12-2024 eGFR 66 mL/min/1.73 m2 Normal >=59 [facility] Comment on above: Order Comment: Order added by Discern Expert. Performed By: #### 1 [id number] #### [facility] [address] [place] [address] XR Hand 3+ Views Lefton 12-24 XR [...] mGy = na DAP = na Normal [facility] XR Wrist 3+ Views Lefton XR Wrist [...] mGy = na DAP = na Normal [facility] ED Clinical Summaryon 2023 ED Clinical Summary ED Clinical Summary [address] [address] ED Clinical Summary Person Information [facility]: [facility] Age: 74 Years : 1950 Sex: Female Language: Peruvian PCP: AZUL GORMAN CNP Marital Status: Phone: [phone] Visit Id: Visit Reason: Hand pain-swelling; Wrist [...] 01/10/2024 22:20:27 01/10/2024 22:20:27 01/10/2024 22:20:27 ADDRESS: [address] [place] [address] [address] [facility] [id number] PHYS DOC NOTES: MEDICAL INFORMATION: Prescriptions Given: New Medications [facility]/pharmacy #[id number], [address] [place], [place] [id number], [phone] acetaminophen-oxycodone (Percocet 5 mg-325 mg oral tablet) [...] 5. fluticasone nasal (fluticasone 0.05 mg/inh Nasal [place]) 2 Sprays Nasal Inhalation every day. each nostril. Refills: 5. Misc Prescription (Straight Catheters & Supplies) Use daily, as directed.. Refills: 5. Misc Prescription (walking boot) right foot knee high walking Size small boot dx m21.479, m14.679 Fax to [facility]. Refills: 0. multivitamin [...] Follow up: With: Address: When: Kye Barrientos [address] [place] [address] Business (1) In 3 days 01/13/2024 With: Address: When: [place] [address] Business (1) In 3 days DIAGNOSIS: Distal radius fracture; Left wrist pain Normal [facility] ED Note-Physicianon 01-10-20 ED Note-Physician ED Note-Physician [...] Barrientos In 3 days 01/13/2024 EDT [address] [place] [address]- Business (1) Additional Instructions: AZUL GORMAN In 3 days [address] [place] [address] [employer]ze (1) Additional Instructions: Patient Education Radial Fracture Attestation Patient seen and evaluated by the physician bookkeeping assistant. Attending physician was present in the emergency department and supervised care. This visit was performed by both the physician and an APC. I performed all aspects of the MDM as documented. This report was transcribed using voice recognition software. Every effort was made to ensure accuracy, however, inadvertently computerized fisheries director mistakes may be present. Appropriate healthcare PPE [...] 27.0-27.9,adult Ch (more content not included)... Normal [facility] Comment on above: Result Comment: Elec tronically Signed By: Jose Daniel PA-C\.br\Date and Time Signed: 01/10/24 22:21 EDT\.br\Electronically Co-Signed By: Mati Taylor DO\.br\Date and Time Co-Signed: 01/10/24 23:37 EDT ED Patient Summaryon 024 ED Patient Summary ED Patient Summary [place] [id number] Patient Discharge Instructions Person Information Name: MAEGAN DYE Age: 74 Years Arrival Date: 01/10/2024 20:33:08 Discharge Diagnosis: Distal radius fracture; Left wrist pain Primary Care Physician: AZUL GORMAN CNP Provider Information Primary Provider: Mati Taylor DO Advanced Supervisor Boiler Repair:Jose Daniel PA-C The exam and treatment you received in the Emergency Department were for an urgent problem and are not intended as complete care. It is important that you follow up with a doctor, nurse practitioner, or physician?s bookkeeping assistant for ongoing care. If your symptoms [...] Instructions: With: Address: When: Kye Barrientos [address] [place] [address] Business (1) In 3 days 01/13/2024 With: Address: When: AZUL GORMAN [address] [facility] [place] [address] Business (1) In 3 days In the event that this physician does not participate in your insurance network, please consult with your insurance company to find a nearby participating provider. Patient Education Materials: Radial Fracture A MESSAGE TO ALL PATIENTS REGARDING OPIOIDS PRESCRIPTION OPIOIDS: WHAT YOU NEED TO KNOW Prescription opioids can be used to help relieve tvxzlzny-ii-dqatks pain and are often prescribed following a [...] be st (more content not included)... Normal [facility] C Urineon 01-04-2024 Bacteria identified Cx Nom [...] Locations R1: This test was performed at: [facility], [address] [place] [address], [id number] , , [facility] Comment on above: Performed By: #### 2 [id number] #### [facility] [address] [place] [address] Ambulatory Visit Summaryon 0 01-02-2024 Ambulatory Visit [...] Cap) fluticasone nasal (fluticasone 0.05 mg/inh Nasal [place]) multivitamin with minerals (Therapeutic Multiple Vitamins with [...] Up with AZUL GORMAN CNP When: Where: [address], [place] [address]- Medications What How Much When Why Instructions New nitrofurantoin (Macrobid 100 mg Cap) 1 Capsules By Mouth 2 times a day Acute cystitis with hematuria Duration: 7 Days Pickup at [facility]/pharmacy #[id number] Unchanged amlodipine (amLODIPine 5 mg Tab) 1 [...] fluticasone nasal (fluticasone 0.05 mg/ inh Nasal [place]) 2 Sprays Nasal Inhalation Every day each nostril Contact prescribing physician if questions or concerns Unchanged Misc Prescription (Straight Catheters & Supplies) See instructions Use daily, as directed. Contact prescribing physician if questions or concerns Unchanged Misc Prescription (walking boot) See instructions right foot knee high walking Size small boot dx m21.502, m14.611 Fax to [facility] Contact prescribing physician if questions or concerns [...] or concerns (more content not included)... Normal [facility] Family Medicine Office/Clini c Noteon 01-02-2024 Family [...] with voice recognition software. Occasional wrong-word or ?rtguk-k-wkhw? substitutions may have occurred due to the [...] day(s), # 14 cap(s), Refills(s) 0, Pharmacy: [facility]/pharmacy #[id number], 162, cm, 09/07/23 20:10:00 EDT, Height/Length [...] Urnls Dip Stick Auto w/o Microscopy POC 32[address] Follow-up With When Contact Information AZUL GORMAN CNP, [place] [address]- Additional Instructions: Patient Education Managing Your Hypertension Urinary Tract Infection, Adult, Jevd-dw-Auut Problem List/Past Medical History Ongoing Acute UTI [...] emptying V (more content not included)... Normal [facility] Comment on above: Result Comment: Elec tronically Signed By: Luna Jiménez\.br\Date and Time Signed: 01/02/24 11:47 EDT Heart [...] Christie, PUL, ZACH Within 6 weeks [address] [facility] [place] [address]- Additional Instructions: Problem List/Past Medical History Ongoing [...] Vitamin D deficiency Historical Accidental fall Agent [place] ASTHMA Benzodiazepine withdrawal Bipolar disorder Callus of [...] or hyponat (more content not included)... Normal [facility] Comment on above: Result Comment: Elec tronically Signed By: Sofia RAMOS, Gala Christie\.br\Date and Time Signed: 12/19/23 12:30 EDT eGFRon 12-17-2023 eGFR 58 mL/min/1.73 m2 Low >=59 [facility] Comment on above: Order Comment: Order added by Discern Expert. Performed By: #### 1 [id number] #### [facility] [address] [place] [address] Physician Orderon 11-19-2023 Physician Order [id number]#1.00TIFF Normal [facility] Consenton 11-08-2023 Consent [id number]#1.00TIFF Normal [facility] Patient Eval Forms Officeon 11-08-2023 Patient Eval Forms Office [id number]#1.00TIFF Normal [facility] Patient Eval Forms Office [id number]#1.00TIFF Normal [facility] Consent for Treatmenton 10-24 Consent for Treatment [id number]#1.00TIFF Normal [facility] CMPon 10-29-2023 Albumin [Mass/Vol] 4.6 g/dL Normal 3.3-5.0 [facility] Comment on above: Performed By: #### 2 [id number] #### [facility] [address] [place] [address] Albumin/Globulin (S) [Mass conc ratio] 1.8 Normal 1.1-2.2 [facility] Comment on above: Performed By: #### 2 493991 #### [facility] [address] [place] [address] ALP [Catalytic activity/Vol] 89 Int._Unit/L Normal 21-98 [facility] Comment on above: Performed By: #### 2 278509 #### [facility] [address] [place] [address] ALT No additional P-5'-P [Catalytic activity/Vol] 9 Int._Unit/L Normal 6-46 [facility] Comment on above: Performed By: #### 2 992905 #### [facility] [address] [place] [address] Anion gap [Moles/Vol] 12 mmol/L Normal 6-16 [facility] Comment on above: Performed By: #### 2 743665 #### [facility] [address] [place] [address] AST [Catalytic activity/Vol] 16 Int._Unit/L Normal 5-43 [facility] Comment on above: Performed By: #### 2 949553 #### [facility] [address] [place] [address] Bilirubin [Mass/Vol] 0.6 mg/dL Normal 0.0-1.1 [facility] Comment on above: Performed By: #### 2 364844 #### [facility] [address] [place] [address] Calcium [Mass/Vol] 9.4 mg/dL Normal 8.9-11.1 [facility] Comment on above: Performed By: #### 2 357852 #### [facility] [address] [place] [address] Chloride [Moles/Vol] 100 mmol/L Low 101-111 [facility] Comment on above: Performed By: #### 2 371119 #### [facility] [address] [place] [address] CO2 [Moles/Vol] 30 mmol/L Normal 21-31 [facility] Comment on above: Performed By: #### 2 630467 #### [facility] [address] [place] [address] Creatinine [Mass/Vol] 1.1 mg/dL Normal 0.5-1.3 [facility] Comment on above: Performed By: #### 2 280022 #### [facility] [address] [place] [address] Globulin (S) [Mass/Vol] 2.5 g/dL Normal 1.4-4.0 [facility] Comment on above: Performed By: #### 2 674153 #### [facility] [address] [place] [address] Glucose [Mass/Vol] 115 mg/dL Normal 55-199 [facility] Comment on above: Performed By: #### 2 020042 #### [facility] [address] [place] [address] Potassium [Moles/Vol] 3.8 mmol/L Normal 3.5-5.3 [facility] Comment on above: Performed By: #### 2 837492 #### [facility] [address] [place] [address] Protein [Mass/Vol] 7.1 g/dL Normal 6.0-7.8 [facility] Comment on above: Performed By: #### 2 [id number] #### [facility] [address] [place] [address] Sodium [Moles/Vol] 138 mmol/L Normal 135-145 [facility] Comment on above: Performed By: #### 2 [id number] #### [facility] [address] [place] [address] Urea nitrogen [Mass/Vol] 13 mg/dL Normal 5-21 [facility] Comment on above: Performed By: #### 2 [id number] #### [facility] [address] [place] [address] Urea nitrogen/Creatinine [Mass ratio] 12 No Units Normal 10-20 [facility] Comment on above: Performed By: #### 2 [id number] #### [facility] [address] [place] [address] Physician Orderon 10-29-2023 Physician Order [id number]#1.00TIFF Normal [facility] Physician Order [id number]#1.00TIFF Normal [facility] Vit B12on 10-29-2023 Cobalamin (Vitamin B12) [Mass/Vol] 413 pg/mL Normal 50-1500 [facility] Comment on above: Performed By: #### 2 [id number] #### [facility] [address] [place] [address] eGFRon 10-29-2023 eGFR 52 mL/min/1.73 m2 Low >=59 [facility] Comment on above: Order Comment: Order added by Discern Expert. Performed By: #### 1 [id number] #### [facility] [address] [place] [address] Insurance Correspondenceon 0 10-28-2023 Insurance Correspondence [id number]#1.00TIFF Normal [facility] Consenton 10-10-2023 Consent [id number]#1.00TIFF Normal [facility] Patient Eval Forms Officeon 10-10-2023 Patient Eval Forms Office [id number]#1.00TIFF Normal [facility] Patient Eval Forms Office [id number]#1.00TIFF Normal [facility] Patient Eval Forms Office [id number]#1.00TIFF Normal [facility] Consent for Treatmenton 09-23 Consent for Treatment [id number]#1.00TIFF Normal [facility] Discharge Instructionson Discharge Instructions [id number]#1.00TIFF Normal [facility] Medication Listson Medication Lists [id number]#1.00TIFF Normal [facility] Referral Authorizationson Referral Authorizations [id number]#1.00TIFF Normal [facility] Transfer Documentson 024 Transfer Documents [id number]#1.00TIFF Normal [facility] Physician Orderon 10-03-2023 Physician Order [id number]#1.00TIFF Normal [facility] Discharge Instructionson Discharge Instructions [id number]#1.00TIFF Normal [facility] Transfer Documentson 024 Transfer Documents [id number]#1.00TIFF Normal [facility] Discharge Note-Nursingon Discharge Note-Nursing REport given to Yesenia cedeno RN @ [facility]. Discharge papers, sbar, and med rec faxed to [facility]. Medical records and rest of original papers that were faxed going with [facility] transporters going with patient to [facility]. Patient to leave @ 3:00pm. Rachelle BULLARD update on POC. Normal [facility] Discharge Note-Nursing MAEGAN DYE :1950 Visit Date:09/07/2023 [...] Cap) fluticasone nasal (fluticasone 0.05 mg/inh Nasal [place]) multivitamin with minerals (Therapeutic Multiple Vitamins with [...] Pending Diagnostic Test Results None Pharmacy Information [facility] New Follow Up Appointments after Discharge Follow Up with AZUL GORMAN When: In 0 days Where: [address] [place] [address]- Business (1) Medications What How Much When [...] fluticasone nasal (fluticasone 0.05 mg/ inh Nasal [place]) 2 Sprays Nasal Inhalation Every day each [...] tablet) 2 Tabl (more content not included)... Normal [facility] Interdisciplinary Note - Maximus e Manageron 09-12-2023 Interdisciplinary Note - Live Out Nanny CRM to room to discuss DC planning. [...] white board updated. CRM following. [place] We do not have any available transportation and Medicaid should cover the cost. CRM let primary nurse and DC nurse know via messenger CRM called Son Oracio to let him know of DC to [place] today. Nursing still to arrange transport He would like called the time This is [facility] as specified in previous notes added to todays patient is leaving at 1500 and primary nurse told her son [facility] Comment on above: Result Comment: Elec tronically Signed By: Latasha Hernández\.br\Date and Time Signed: 09/12/23 13:55 EDT Interdisciplinary Note - Maximus e Manageron 09-11-2023 Interdisciplinary Note - Live Out Nanny CRM to room to discuss DC planning. [...] CRM contact, white board updated. CRM following. [facility] has accepted, were starting precert and doing an onsite visit today [facility] Comment on above: Result [...] 72 mg/dL (09/10/23 14:21:00) POC Device SN: [id number] (09/10/23 14:21:00) POC User ID: [id number] (09/10/23 14:21:00) POC Username: PEREZ JACQUELINE (09/10/23 14:21:00) Images No qualifying data available. [...] dose modulation (more content not included)... Normal [facility] Comment on above: Result Comment: Elec tronically Signed By: MAYI RAMOS, Alaa\.br\Date and Time Signed: 09/11/23 11:21 EDT C Urineon 09-10-2023 Bacteria identified Cx Nom (U) Microbiology PROCEDURE: Urine Culture [R1] SOURCE: U Cath BODY SITE: COLLECTED DATE/TIME: 09/07/2023 20:55 EDT RECEIVED DATE/TIME: 09/07/2023 21:46 EDT START DATE/TIME: 09/07/2023 21:46 EDT FREE TEXT SOURCE: Karlee John PA-C, Rodrigue John PA-C, Rodrigue Cruz. FINAL REPORTS Final Report [] [...] Locations R1: This test was performed at: [facility], [address] [place] [address], [address] , [place], Normal [facility] Comment on above: Performed By: #### 4 [id number] #### [facility] [address] [place] [address] CHEMISTRYOrdered By: Lab ROP User on 09-10-2023 Glucose [Mass/Vol] 72 mg/dL Normal 55 - 99 mg/dL [facility] [place] POC Subsection Comment on above: Result Comment: Christina perea RN/ POC Device SN [id number] 1 Invalid Interpretation Code FT POC Subsection POC User ID [id number] 1 Invalid Interpretation Code [facility] [place] POC Subsection POC Username JACQUELINE TODD Invalid Interpretation Code [facility] [place] POC Subsection Capillary Glucose POCon 08-24 Glucose [Mass/Vol] 72 mg/dL Normal 55-99 [facility] Comment on above: Result Comment: Christina perea RN/ Performed By: #### 2 [id number] #### [facility] [address] [place] [address] Interdisciplinary Note - Maximus e Manageron 09-10-2023 Interdisciplinary Note - Live Out Nanny CRM to room to discuss DC planning. [...] to try to any 5 star facilities [place] and [place] are reviewing Normal [facility] Comment on above: Result Comment: Elec tronically [...] weight based (more content not included)... Normal [facility] Comment on above: Result Comment: Elec tronically Signed By: Gumaro WELLINGTON MD\.br\Date and Time Signed: 09/10/23 10:39 EDT Interdisciplinary Note - Maximus e Manageron 09-09-2023 Interdisciplinary Note - Live Out Nanny CRM to room to discuss DC planning. [...] choices are [facility] and then [facility] Normal [facility] Comment on above: Result Comment: Elec tronically [...] compatible with mild generalized parenchymal volume loss. Anhtony-white matter differentiation is preserved. Subtle areas of [...] Signature Line (more content not included)... Normal [facility] Comment on above: Result Comment: Elec tronically Signed By: MAYI RAMOS, Gumaro\.br\Date and Time Signed: 09/09/23 09:31 EDT ED Note-Physicianon 09-08-19 ED Note-Physician Basic Information Time Seen: Alvaro BYRD, Rodrigue Granado 09/07/2023 19:33 Chief Complaint pt. via [facility] for [facility], states she is seeing [...] on aricept for history of dementia per squad. Reports PD was at her house, because [...] and Complexity of Problems Differential Diagnosis: [] MDM Data External documents reviewed: [] My EKG [...] reports that she was recently seen at [facility]. They did discharge her home. No signs [...] so they want her placed in a fdc. Hospitalist agreeable with admission. Shared decision making: [...] Patient seen and evaluated by the physician bookkeeping assistant. Attending physician was present in the emergency department and supervised care. This visit was performed by both the physician and an APC. I performed all aspects of the MDM as documented. This report was transcri (more content not included)... [facility] Comment on above: Result Comment: Elec tronically Signed By: Rodrigue John PA-C\.br\Date and Time Signed: 09/07/23 22:25 EDT\.br\Electronically Co-Signed By: Santiago Harrington DO\.br\Date and Time Co-Signed: 09/08/23 01:03 EDT Interdisciplinary Note - Maximus e Manageron 09-08-2023 Interdisciplinary Note - Live Out Nanny CRM to room to discuss DC planning. [...] . Patient was provided CRM contact, roya board updated. CRM following CRM spoke with SON he would like SNF stay but understands that she may need LTC Choices are 1. [facility] and 2 TCU ( may be 00N) [facility] Comment on above: Result Comment: Elec tronically Signed By: Latasha Hernández\.br\Date and Time Signed: 09/08/23 12:42 EDT Interdisciplinary Note - Soc ial Workeron 09-08-2023 Interdisciplinary Note - Basket Braider This SW received a consult due to concerning accusations made by patient against her son. DARLIN is very familiar with patient and her son. DARLIN reviewed accusations that are noted in the H&P. DARLIN contacted Vita Appiah at [facility] to see if she still had an open case with patient as they have been involved during previous hospitalizations. Vita stated that the case has been closed. Patient was at [facility] in [place] for a while, however her son took her out of the facility and at that time patient denied all the accusations she had previously made against her son. DARLIN went ahead and called in the report of these accusations to Darnell in Intake for [facility]. Both Darnell and Vita were made aware that DARLIN will keep them updated on discharge plans for patient. DARLIN will remain available. Normal [facility] Progress Note-Physicianon Progress Note-Physician Basic Information 1. [...] 4.5 E12/L (09/07/23 20:12:00) HGB: 12.8 gm/dL (09/07/23:12:00) Hct: 39.1 % (09/07/23:12:00) MCV: 87.1 fL (09/07/23:12:00) MCH: 28.5 pg (09/07/23:12:00) MCHC: 32.7 gm/dL (09/07/23 20:12:00) RDW: 12.5 % (09/07/23:12:00) Platelet: 257 E9/L (09/07/23:12:00) MPV: 7.4 fL (09/07/23:12:00) Neutro Auto: 67.6 % (09/07/23:12:00) Lymph Auto: 20 % (09/07/23:12:) [place] Auto: 9.5 % (09/07/23:12:00) Eos Auto: 2.3 % (09/07/23:12:) Basophil Auto: 0.6 % (09/07/23:12:) Neutro Absolute: 5 E9/L (09/07/23:12:00) Lymph Absolute: 1.5 E9/L (09/07/23:12:00) [place] Absolute: 0.7 E9/L (09/07/23:12:00) Eos Absolute: 0.2 E9/L (09/07/23:12:00) Basophil Absolute: 0 E9/L (09/07/23:12:00) Glucose Lvl: 107 mg/dL (09/07/23 20:12:00) BUN: 23 mg/dL High (09/07/23 20:12:00) Creatinine: 1.1 mg/dL (09/07/23:12:00) eGFR: 52 mL/min/1.73 m2 Low (09/07/23 20:12:00) [...] gm/dL (09/07/23 (more content not included)... Normal [facility] Comment on above: Result Comment: Elec tronically Signed By: MAYI RAMOS, Gumaro\.br\Date and Time Signed: 09/08/23 10:48 EDT UA with Cult Rflxon 09-08-19 UA Spec Desc Catheter Normal [facility] Comment on above: Result Comment: Test results were corrected for specimen description. Performed By: #### 4 [id number], [id number] #### [facility] [address] [place] [address] CBC w/ Auto Diffon 4 Basophils/100 WBC (Bld) 0.6 % Normal 0.0-2.0 [facility] Comment on above: Performed By: #### 2 [id number], [id number] #### [facility] [address] [place] [address] Basophils/Leukocytes Auto (Bld) [Pure # fraction] 0.0 E9/L Normal 0.0-0.2 [facility] Comment on above: Performed By: #### 2 480800, [id number] #### [facility] [address] [place] [address] Eosinophils (Bld) [#/Vol] 0.2 E9/L Normal 0.0-0.5 [facility] Comment on above: Performed By: #### 2 502958, [id number] #### [facility] [address] [place] [address] Eosinophils/100 WBC (Bld) 2.3 % Normal 0.0-8.0 [facility] Comment on above: Performed By: #### 2 468868, [id number] #### [facility] [address] [place] [address] Erythrocyte distribution width (RBC) [Ratio] 12.5 % Normal 10.9-14.2 [facility] Comment on above: Performed By: #### 2 233285, [id number] #### [facility] [address] [place] [address] Hematocrit (Bld) [Volume fraction] 39.1 % Normal 34.0-46.0 [facility] Comment on above: Performed By: #### 2 591385, [id number] #### [facility] [address] [place] [address] Hemoglobin (Bld) [Mass/Vol] 12.8 g/dL Normal 12.0-16.0 [facility] Comment on above: Performed By: #### 2 665737, [id number] #### [facility] [address] [place] [address] Lymphocytes (Bld) [#/Vol] 1.5 E9/L Normal 1.0-4.0 [facility] Comment on above: Performed By: #### 2 679289, [id number] #### [facility] [address] [place] [address] Lymphocytes/100 WBC (Bld) 20.0 % Normal 14.0-50.0 [facility] Comment on above: Performed By: #### 2 247162, [id number] #### [facility] [address] [place] [address] MCH (RBC) [Entitic mass] 28.5 pg Normal 27.0-34.0 [facility] Comment on above: Performed By: #### 2 376321, [id number] #### [facility] [address] [place] [address] MCHC (RBC) [Mass/Vol] 32.7 g/dL Normal 31.4-36.0 [facility] Comment on above: Performed By: #### 2 575666, [id number] #### [facility] [address] [place] [address] MCV (RBC) [Entitic vol] 87.1 fL Normal 80.0-100.0 [facility] Comment on above: Performed By: #### 2 864536, [id number] #### [facility] [address] [place] [address] Monocytes (Bld) [#/Vol] 0.7 E9/L Normal 0.2-1.0 [facility] Comment on above: Performed By: #### 2 516806, [id number] #### [facility] [address] [place] [address] Neutrophils (Bld) [#/Vol] 5.0 E9/L Normal 2.0-7.5 [facility] Comment on above: Performed By: #### 2 957635, [id number] #### [facility] [address] [place] [address] Neutrophils/100 WBC (Bld) 67.6 % Normal 36.0-75.0 [facility] Comment on above: Performed By: #### 2 074568, [id number] #### [facility] [address] [place] [address] Platelet mean volume (Bld) [Entitic vol] 7.4 fL Normal 6.4-10.8 [facility] Comment on above: Performed By: #### 2 877422, [id number] #### [facility] [address] [place] [address] Platelets (Bld) [#/Vol] 257.0 E9/L Normal 150.0-500. 0 [facility] Comment on above: Performed By: #### 2 378972, [id number] #### [facility] [address] [place] [address] RBC (Bld) [#/Vol] 4.5 E12/L Normal 4.3-5.9 [facility] Comment on above: Performed By: #### 2 097808, [id number] #### [facility] [address] [place] [address] WBC corrected for nucl RBC Auto (Bld) [#/Vol] 7.5 E9/L Normal 4.0-11.0 [facility] Comment on above: Performed By: #### 2 411874, [id number] #### [facility] [address] [place] [address] CHEMISTRYOrdered By: SYSTEM SYSTEM on 09-07-2023 Amphetamines [...] 09-07-2023 Albumin [Mass/Vol] 4.2 g/dL Normal 3.3-5.0 [facility] Comment on above: Order Comment: Urina ry Catheter Insertion triggered Urinalysis With Culture Reflex order by discern. Performed By: #### 2 793925, [id number] #### [facility] [address] [place] [address] Albumin/Globulin (S) [Mass conc ratio] 1.5 Normal 1.1-2.2 [facility] Comment on above: Order Comment: Urina ry Catheter Insertion triggered Urinalysis With Culture Reflex order by discern. Performed By: #### 2 584161, [id number] #### [facility] [address] [place] [address] ALP [Catalytic activity/Vol] 85 Int._Unit/L Normal 21-98 [facility] Comment on above: Order Comment: Urina ry Catheter Insertion triggered Urinalysis With Culture Reflex order by discern. Performed By: #### 2 550772, [id number] #### [facility] [address] [place] [address] ALT No additional P-5'-P [Catalytic activity/Vol] 8 Int._Unit/L Normal 6-46 [facility] Comment on above: Order Comment: Urina ry Catheter Insertion triggered Urinalysis With Culture Reflex order by discern. Performed By: #### 2 730294, [id number] #### [facility] [address] [place] [address] Anion gap [Moles/Vol] 12 mmol/L Normal 6-16 [facility] Comment on above: Order Comment: Urina ry Catheter Insertion triggered Urinalysis With Culture Reflex order by discern. Performed By: #### 2 617342, [id number] #### [facility] [address] [place] [address] AST [Catalytic activity/Vol] 17 Int._Unit/L Normal 5-43 [facility] Comment on above: Order Comment: Urina ry Catheter Insertion triggered Urinalysis With Culture Reflex order by discern. Performed By: #### 2 286968, [id number] #### [facility] [address] [place] [address] Bilirubin [Mass/Vol] 0.4 mg/dL Normal 0.0-1.1 [facility] Comment on above: Order Comment: Urina ry Catheter Insertion triggered Urinalysis With Culture Reflex order by discern. Performed By: #### 2 049541, [id number] #### [facility] [address] [place] [address] Calcium [Mass/Vol] 9.8 mg/dL Normal 8.9-11.1 [facility] Comment on above: Order Comment: Urina ry Catheter Insertion triggered Urinalysis With Culture Reflex order by discern. Performed By: #### 2 387412, [id number] #### [facility] [address] [place] [address] Chloride [Moles/Vol] 99 mmol/L Low 101-111 [facility] Comment on above: Order Comment: Urina ry Catheter Insertion triggered Urinalysis With Culture Reflex order by discern. Performed By: #### 2 080630, [id number] #### [facility] [address] [place] [address] CO2 [Moles/Vol] 30 mmol/L Normal 21-31 [facility] Comment on above: Order Comment: Urina ry Catheter Insertion triggered Urinalysis With Culture Reflex order by discern. Performed By: #### 2 249325, [id number] #### [facility] [address] [place] [address] Creatinine [Mass/Vol] 1.1 mg/dL Normal 0.5-1.3 [facility] Comment on above: Order Comment: Urina ry Catheter Insertion triggered Urinalysis With Culture Reflex order by discern. Performed By: #### 2 041949, [id number] #### [facility] [address] [place] [address] Globulin (S) [Mass/Vol] 2.8 g/dL Normal 1.4-4.0 [facility] Comment on above: Order Comment: Urina ry Catheter Insertion triggered Urinalysis With Culture Reflex order by discern. Performed By: #### 2 969342, [id number] #### [facility] [address] [place] [address] Glucose [Mass/Vol] 107 mg/dL Normal 55-199 [facility] Comment on above: Order Comment: Urina ry Catheter Insertion triggered Urinalysis With Culture Reflex order by discern. Performed By: #### 2 391493, [id number] #### [facility] [address] [place] [address] Potassium [Moles/Vol] 4.3 mmol/L Normal 3.5-5.3 [facility] Comment on above: Order Comment: Urina ry Catheter Insertion triggered Urinalysis With Culture Reflex order by discern. Performed By: #### 2 129030, [id number] #### [facility] [address] [place] [address] Protein [Mass/Vol] 7.0 g/dL Normal 6.0-7.8 [facility] Comment on above: Order Comment: Urina ry Catheter Insertion triggered Urinalysis With Culture Reflex order by discern. Performed By: #### 2 494676, [id number] #### [facility] [address] [place] [address] Sodium [Moles/Vol] 137 mmol/L Normal 135-145 [facility] Comment on above: Order Comment: Urina ry Catheter Insertion triggered Urinalysis With Culture Reflex order by discern. Performed By: #### 2 688564, [id number] #### [facility] [address] [place] [address] Urea nitrogen [Mass/Vol] 23 mg/dL High 5-21 [facility] Comment on above: Order Comment: Urina ry Catheter Insertion triggered Urinalysis With Culture Reflex order by discern. Performed By: #### 2 092644, [id number] #### [facility] [address] [place] [address] Urea nitrogen/Creatinine [Mass ratio] 21 No Units High 10-20 [facility] Comment on above: Order Comment: Urina ry Catheter Insertion triggered Urinalysis With Culture Reflex order by discern. Performed By: #### 2 455019, [id number] #### [facility] [address] [place] [address] Consent for Treatmenton 08-24 Consent for Treatment [id number]#1.00TIFF Normal [facility] ED Clinical Summaryon 2023 ED Clinical Summary (Inserted Image. Sara ble to display) [address] [address] ED Clinical Summary Person Information Name: MAEGAN DYE/[facility] Age: 73 Years : 1950 Sex: Female Language: Peruvian PCP: AZUL GORMAN CNP Marital Status: Phone: [phone] Visit Id: Visit Reason: Altered mental status; UTI Speciality: Acuity: 3 Enc Type: Observation Med Service: Emergency Arrival: 09/07/2023 19:32:34 Discharge: LOS: 000 03:07 Checkin: 09/07/2023 19:32:34 Checkout: 09/07/2023 22:39:19 Dispo Type: Admitted as IP to this [facility] EVENTS: Event Name Event Status Request [...] 22:01:47 Patient Care Request 09/07/2023 22:01:47 ADDRESS: [facility] [address] [facility] [phone] PHYS DOC NOTES: MEDICAL INFORMATION: Prescriptions Given: [...] 0. fluticasone nasal (fluticasone 0.05 mg/inh Nasal [place]) 2 Sprays Nasal Inhalation every day. each [...] manic, moder (more content not included)... Normal [facility] ED Note-Nursingon 09-07-2023 ED Note-Nursing spoke with Irma Chakraborty at this time, pt. was evaluated last night and does not meet psychiatric admission criteria. LULA Husain speaks with MICH over the phone at this time. Normal [facility] ED Patient Education Noteon 09-07-2023 ED Patient Education Note Normal [facility] ED Patient Summaryon 024 ED Patient Summary (Inserted Image. Sara ble to display) [address] [address] Patient Discharge Instructions Person Information Name: MAEGAN DYE Age: 73 Years Arrival Date: 09/07/2023 19:32:34 Discharge Diagnosis: 1:Encephalopathy; 2:Abnormal urine; 3:Neurogenic bladder disorder; 4:HTN (hypertension); 5:COPD without exacerbation; 6:Bipolar disorder, manic, moderate; 7:Dementia Primary Care Physician: AZUL GORMAN CNP Provider Information Primary Provider: Santiago Harrington DO Advanced Supervisor Boiler Repair:None The exam and treatment you received in the Emergency Department were for an urgent problem and are not intended as complete care. It is important that you follow up with a doctor, nurse practitioner, or physician?s bookkeeping assistant for ongoing care. If your symptoms [...] opioids can be used to help relieve xbbfpahi-lz-bqumao pain and are often prescribed following a [...] be struggling with addiction, tell your health pet caregiver and ask for guidance or call SAM[employer]?S National Helpline at 8-099-012-HELP. v Source: [place] Department of Health and Human (more content not included)... Normal [facility] Ethanolon 09-07-2023 Ethanol Lvl <10 Normal <=11 [facility] Comment on above: Performed By: #### 2 [id number] ####[facility] [address] [place] [address] HEMATOLOGYOrdered By: SYSTEM SYSTEM on 09-07-2023 Basophils/100 [...] from Medicareon 08-24 Message from Medicare [id number]. [id number] Normal [facility] Pre-Arrival Noteon Pre-Arrival Note Pre-Arrival Summary Name: MAEGAN, Current Date: 09/07/2023 19:32:48 EDT Gender: Date of : Age: Pre-Arrival Type: EMS ETA: 09/07/2023 19:50:00 EDT Primary Care Physician: Presenting Problem: UTI AMS Pre-Arrival User: Pete Vernon RN Referring Source: Location: Completion Date/Time: 09/07/2023 19:20:00 [facility] Emergency Department Pre-Hospital Report Form _ Vital Signs: Pre-Hospital Report: Treatment in Route: Response to Treatment: Misc. Issues: Normal [facility] U Drug Screenon 09-07-2023 Amphetamines Screen method >1000 ng/mL Ql (U) Negative Normal NEGATIVE [facility] Comment on above: Result Comment: Nega tive Cutoff: <1000 ng/mL Performed By: #### 4 [id number], [id number] #### [facility] [address] [place] [address] Barbiturates Screen Ql (U) Negative Normal NEGATIVE [facility] Comment on above: Result Comment: Nega tive Cutoff: <200 ng/mL Performed By: #### 4 [id number], [id number] #### [facility] [address] [place] [address] Benzodiazepines Ql (U) Negative Normal NEGATIVE Fi [facility] Comment on above: Result Comment: Nega tive Cutoff: <200 ng/mL Performed By: #### 4 [id number], [id number] #### [facility] [address] [place] [address] Cannabinoids Screen Ql (U) Negative Normal NEGATIVE [facility] Comment on above: Result Comment: Nega tive Cutoff: <50 ng/mL Performed By: #### 4 [id number], [id number] #### [facility] [address] [place] [address] Cocaine Ql (U) Negative Normal NEGATIVE [facility] Comment on above: Result Comment: Nega tive Cutoff: <300 ng/mL Performed By: #### 4 [id number], [id number] #### [facility] [address] [place] [address] Opiates Screen Ql (U) Positive Abnormal NEGATIVE Fis [facility] Comment on above: Result Comment: Nega tive Cutoff: <300 ng/mL Performed By: #### 4 [id number], [id number] #### [facility] [address] [place] [address] Phencyclidine Screen method >25 ng/mL Ql (U) Negative Normal NEGATIVE [facility] Comment on above: Result Comment: Nega tive Cutoff: <25 ng/mL These drug screen results are to be used for medical (i.e., treatment) purposes only. Unconfirmed drug screening results must not be used for non-medical purposes (e.g., employment testing, legal testing). Performed By: #### 4 [id number], [id number] #### [facility] [address] [place] [address] U Fentanyl Negative Normal NEGATIVE [facility] Comment on above: Result Comment: Nega tive Cutoff: <5 ng/mL These drug screen results are to be used for medical (i.e., treatment) purposes only. Unconfirmed drug screening results must not be used for non-medical purposes (e.g., employment testing, legal testing). Performed By: #### 4 [id number], [id number] #### [facility] [address] [place] [address] UA with Cult [employer] 09-07-19 24 Bacteria Auto Ql (U) Trace Normal Trace Fish er [facility] Comment on above: Performed By: #### 4 [id number], [id number] #### [facility] [address] [place] [address] Bilirubin Ql (U) Negative Normal Negative [facility] Comment on above: Performed By: #### 4 [id number], [id number] #### [facility] [address] [place] [address] Clarity (U) Clear Normal Clear [facility] Comment on above: Performed By: #### 4 [id number], [id number] #### [facility] [address] [place] [address] Color (U) Light-Yellow Normal Yellow [facility] Comment on above: Result Comment: Micr oscopic readings are only performed on those samples that meet specific criteria set forth by [facility]. Performed By: #### 4 [id number], [id number] #### [facility] [address] [place] [address] Crystals.amorphous Computer assisted Ql (U) Present Abnormal [facility] Comment on above: Performed By: #### 4 [id number], [id number] #### [facility] [address] [place] [address] Epithelial cells.squamous Auto (Urine sed) [#/Area] 0-2 Normal 0-2 [facility] Comment on above: Performed By: #### 4 [id number], [id number] #### [facility] [address] [place] [address] Glucose Ql (U) Negative Normal Negative [facility] Comment on above: Performed By: #### 4 [id number], [id number] #### [facility] [address] [place] [address] Hemoglobin Auto test strip (U) [Mass/Vol] Negative Normal Negative [facility] Comment on above: Performed By: #### 4 [id number], [id number] #### [facility] [address] [place] [address] Ketones Auto test strip Ql (U) Negative Normal Negative [facility] Comment on above: Performed By: #### 4 [id number], [id number] #### [facility] [address] [place] [address] Leukocyte esterase Auto test strip Ql (U) 250 Gretchen/uL Abnormal Negative [facility] Comment on above: Performed By: #### 4 [id number], [id number] #### [facility] [address] [place] [address] Mucus Auto Ql (U) Trace Normal Negative [facility] Comment on above: Performed By: #### 4 [id number], [id number] #### [facility] [address] [place] [address] Nitrite Auto test strip Ql (U) Negative Normal Negative [facility] Comment on above: Performed By: #### 4 [id number], [id number] #### [facility] [address] [place] [address] pH (U) 6.0 [pH] Invalid Interpretation Code 5.0-9.0 [facility] Comment on above: Performed By: #### 4 [id number], [id number] #### [facility] [address] [place] [address] Protein Ql (U) Negative Normal Negative [facility] Comment on above: Performed By: #### 4 [id number], [id number] #### [facility] [address] [place] [address] RBC Ql (U) 0-3 Normal 0-3 [facility] Comment on above: Performed By: #### 4 [id number], [id number] #### [facility] [address] [place] [address] Specific gravity (U) [Rel density] 1.015 Invalid Interpretation Code 1.005-1.03 0 [facility] Comment on above: Performed By: #### 4 [id number], [id number] #### [facility] [address] [place] [address] Transitional cells Computer assisted (U) [#/Area] 0-2 Normal 0-2 [facility] Comment on above: Performed By: #### 4 [id number], [id number] #### [facility] [address] [place] [address] Urobilinogen (U) [Mass/Vol] Negative Normal Negative [facility] Comment on above: Performed By: #### 4 [id number], [id number] #### [facility] [address] [place] [address] WBC Auto (Urine sed) [#/Area] 16-25 Abnormal 0-5 [facility] Comment on above: Performed By: #### 4 [id number], [id number] #### [facility] [address] [place] [address] URINALYSISOrdered By: SYSTEM SYSTEM on 09-07-2023 Bacteria Auto Ql (U) Trace graded/HPF Normal Tra cegrade d/HPF FT UA Auto SS Bilirubin Ql (U) Negative Normal Negativemg /dL FT UA Auto SS Clarity (U) Clear (09/07/23 8:55 PM) Normal Clear FT UA Auto SS Color (U) Light-Yellow 3 (09/07/23 8:55 PM) Normal Yellow [facility] [place] UA Auto SS Comment on above: Interpretive Data: M icroscopic readings are only performed on those samples that meet specific criteria set forth by [facility]. Crystals.amorphous Computer assisted Ql (U) Present graded/HPF Invalid Interpretation Code FT UA Auto SS Epithelial cells.squamous Auto (Urine [...] Desc Catheter 6 (09/07/23 8:55 PM) Normal [facility] [place] UA Auto SS Work Phone: Comment on above: Result Comment: Test results were corrected for specimen description. VANCOMYCIN:SUSC:PT:ISOLATE:O RDQN:MICOrdered By: Meghann Ham on 09-07-2023 Vancomycin REINALDO [Susc] 15,000 cfu/ml Staphylococcus epidermidis [facility] Vancomycin REINALDO [Susc]Ordered By: Meghann Ham on 09-07-2023 Staphylococcus epidermidis Staphylococcus epidermidis [facility] eGFRon 09-07-2023 eGFR 52 mL/min/1.73 m2 Low >=59 [facility] Comment on above: Order Comment: Order added by Discern Expert. Performed By: #### 2 [id number], [id number] #### [facility] [address] [place] [address] Alanine aminotransferase [En zymatic activity/volume] in Serum or PlasmaOrdered By: Maciej Rodriguez on 09-06-2023 ALT [Catalytic activity/Vol] 8 U/L Normal 7-52 [facility] Comment on above: Performed By: #### C UU, ADDONUAPLUS #### [facility] [address] Albumin [Mass/volume] in Ser um or Plasma by Bromocresol green (BCG) dye binding methoOrdered By: Maciej Rodriguez on 09-06-2023 Albumin BCG dye [Mass/Vol] 4.1 g/dL 3.5-5.7 [facility] Alkaline phosphatase [Enzyma tic activity/volume] in Serum or PlasmaOrdered By: Maciej Rodriguez on 09-06-2023 ALP [Catalytic activity/Vol] 84 U/L Normal 34-104 [facility] Comment on above: Performed By: #### C UU, ADDONUAPLUS #### [facility] [address] [place] [address] Amphetamine Screen Ql (U)Ord ered By: Maciej Rodriguez on 09-06-2023 Amphetamines Ql (U) Negative Negative [facility] Aspartate aminotransferase [ Enzymatic activity/volume] in Serum or PlasmaOrdered By: Maciej Rodriguez on 09-06-2023 AST [Catalytic activity/Vol] 18 U/L Normal 13-39 [facility] Comment on above: Performed By: #### C UU, ADDONUAPLUS #### [facility] [address] [place] [address] Automated basophil %Ordered By: Maciej Rodriguez on 09-06-2023 Basophils/100 WBC (Bld) 0.8 % Normal . [facility] Comment on above: Performed By: #### C UU, ADDONUAPLUS #### [facility] [address] [place] [address] Automated basophil countOrde red By: Maciej Rodriguez on 09-06-2023 Basophils (Bld) [#/Vol] 0.0 10*3/uL Normal 0.0-0.2 [facility] Comment on above: Result Comment: PERF ORMED BY: [facility] [address] [place] [address] PATHOLOGIST COIN MACHINE MECHANIC CORIE SILVA M.D. Performed By: #### C UU, ADDONUAPLUS #### [address] Automated blood monocyte cou ntOrdered By: Maciej Rodriguez on 09-06-2023 Monocytes (Bld) [#/Vol] 0.6 10*3/uL Normal 0.0-0.8 [facility] Comment on above: Performed By: #### C UU, ADDONUAPLUS #### [address] Automated eosinophil %Ordere d By: Maciej Rodriguez on 09-06-2023 Eosinophils/100 WBC (Bld) 3.1 % Normal . [facility] Comment on above: Performed By: #### C UU, ADDONUAPLUS #### [address] Automated eosinophil countOr dered By: Maciej Rodriguez on 09-06-2023 Eosinophils (Bld) [#/Vol] 0.2 10*3/uL Normal 0.0-0.45 [facility] Comment on above: Performed By: #### C UU, ADDONUAPLUS #### [address] Automated erythrocytes count in urine sediment (number/area)Ordered By: Maciej Rodriguez on 09-06-2023 RBC Auto (Urine sed) [#/Area] 3-4 [HPF] 0-4 [facility] Automated leukocytes count i n urine sediment (number/area)Ordered By: Maciej Rodriguez on 09-06-2023 WBC Auto (Urine sed) [#/Area] 3-4 [HPF] 0-4 [facility] Automated monocyte %Ordered By: Maciej Rodriguez on 09-06-2023 Monocytes/100 WBC (Bld) 10.9 % Normal . [facility] Comment on above: Performed By: #### C UU, ADDONUAPLUS #### [address] Automated neutrophil %Ordere d By: Maciej Rodriguez on 09-06-2023 Neutrophils/100 WBC (Bld) 56.7 % Normal . [facility] Comment on above: Performed By: #### C UU, ADDONUAPLUS #### [facility] [address] Automated urine color determ inationOrdered By: Maciej Rodriguez on 09-06-2023 Color (U) Yellow Normal Yellow [facility] Comment on above: Order Comment: Name Collection Type:: Clean-Voided Midstream Performed By: #### C MP, PT, CBC, PTT, HS TROP #### [facility] [address] Barbiturates [Presence] in U rine by Screen methodOrdered By: Maciej Rodriguez on 09-06-2023 Barbiturates Screen Ql (U) Negative Negative [facility] Benzodiazepines Screen Ql (U )Ordered By: Maciej Rodriguez on 09-06-2023 Benzodiazepines Ql (U) Negative Negative [facility] Benzoylecgonine [Presence] i n Urine by Screen methodOrdered By: Maciej Rodriguez on 09-06-2023 Benzoylecgonine Screen Ql (U) Negative Negative [facility] Bilirubin Test strip Ql (U)O rdered By: Maciej Rodriguez on 09-06-2023 Bilirubin Ql (U) Negative Negative [facility] Bilirubin.total [Mass/volume ] in Serum or PlasmaOrdered By: Maciej Rodriguez on 09-06-2023 Bilirubin [Mass/Vol] 0.5 mg/dL Normal 0.3-1.0 [facility] Comment on above: Performed By: #### C UU, ADDONUAPLUS #### [facility] [address] [place] [address] COVID CepheidOrdered By: Ml Rodriguez on 09-06-2023 SARS-CoV-2 (COVID-19) Ab IA Ql Negative Negative [facility] Comment on above: This is a duplicate Cepheid Xpert Xpress CoV-2/Flu/RSV Plus RNA by RT-PCR result to be used for statistical tracking purpose only. SARS-CoV-2 (COVID-19) RNA NAOMIE+probe Ql (Unsp spec) [facility] COVID-19 / Flu A/B / RSV [...] or Cepheid Disclaimer revoked sooner. PERFORMED BY: [facility] [place] [address] PATHOLOGIST COIN MACHINE MECHANIC CORIE SILVA M.D. Normal [facility] Comment on above: Performed By: #### C OVID19 FLU RSV, CEPHEID NEG #### [address] head/brain wo conon 09-05 CT head/brain wo con [facility] Main [place] [address] [place] [address] CT Scan Report Signed Patient: Maegan Dye MR#: [id number] : 1950 Acct:[id number] Age/Sex: 73 / F ADM Date: 09/06/23 Loc: ER Room: Type: [facility] ER Attending Dr: Copies to: Maciej Rodriguez [...] Ángel Littlejohn M.D.09/06/2023 2:58 PM Dictation Location: [id number]-13 Transcribed By: PWS 09/06/23 1458 Dictated By: Ángel Littlejohn II, MD 09/06/23 1455 Signed By: 09/06/23 145 Normal [facility] Calcium [Mass/volume] in Ser um or PlasmaOrdered By: Maciej Rodriguez on 09-06-2023 Calcium [Mass/Vol] 9.8 mg/dL Normal 8.6-10.3 [facility] Comment on above: Performed By: #### C UU, ADDONUAPLUS #### [address] Cannabinoids [Presence] in U rine by Screen methodOrdered By: Maciej Rodriguez on 09-06-2023 Cannabinoids Screen Ql (U) Negative Negative [facility] Comment on above: These are unconfirme d results and should not be used for legal purposes. Drug Cut-Off Concentration: AMPH 1000 ng/mL PHILL 200 ng/mL ROBERT 200 ng/mL COCM 300 ng/mL OP 300 ng/mL PCP 25 ng/mL THC 20 ng/mL Carbon dioxide, total [Moles /volume] in Serum or PlasmaOrdered By: Maciej Rodriguez on 09-06-2023 CO2 [Moles/Vol] 30.5 mmol/L Normal 21.0-31.0 [facility] Comment on above: Performed By: #### C UU, ADDONUAPLUS #### [place] [address] [place] Cepheid COVID PCR Negativeon 09-06-2023 SARS-CoV-2 (COVID-19) RNA NAOMIE+probe Ql (Unsp spec) Negative Normal Negative [facility] Comment on above: Result Comment: This is a duplicate Cepheid Xpert Xpress CoV-2/Flu/RSV Plus RNA by RT-PCR result to be used for statistical tracking purpose only. PERFORMED BY: [place] [address] PATHOLOGIST COIN MACHINE MECHANIC CORIE SILVA M.D. Performed By: #### C OVID19 FLU RSV, CEPHEID NEG #### [place] [address] [place] Chloride [Moles/volume] in S clarisa or PlasmaOrdered By: Maciej Rodriguez on 09-06-2023 Chloride [Moles/Vol] 97 mmol/L Low 98-107 [facility] Comment on above: Performed By: #### C UU, ADDONUAPLUS #### [address] Complete Blood Count Auto Di ffon 09-06-2023 Mean Corpuscular HGB Conc 32.4 g/dL Normal 32.0-35.0 [facility] Comment on above: Performed By: #### C UU, ADDONUAPLUS #### [place] [address] [place] Monocytes/100 WBC (Bld) 15.52 % Normal 0.00-20.00 [facility] Comment on above: Performed By: #### C UU, ADDONUAPLUS #### [address] NRBC% 0.1 /100{WBC} Normal 0-0.5 [facility] Comment on above: Performed By: #### C UU, ADDONUAPLUS #### [address] Comprehensive Metabolic Pane isauro 09-06-2023 Albumin [Mass/Vol] 4.1 g/dL Normal 3.5-5.7 [facility] Comment on above: Performed By: #### C UU, ADDONUAPLUS #### [place] [address] [place] Creatinine Clr Calc Pharmacy 31.85 Normal [facility] Comment on above: Result Comment: PERF ORMED BY: [place] [address] PATHOLOGIST COIN MACHINE MECHANIC CORIE SILVA M.D. Performed By: #### C UU, ADDONUAPLUS #### [address] GFR/1.73 sq M.predicted MDRD (S/P/Bld) [Vol rate/Area] 42.104 mL/min/{1.73_m2} Normal [facility] Comment on above: Performed By: #### C UU, ADDONUAPLUS #### [facility] [address] [place] [address] [place] Creatinine [Mass/volume] in Serum or PlasmaOrdered By: Maciej Rodriguez on 09-06-2023 Creatinine [Mass/Vol] 1.32 mg/dL High 0.60-1.20 [facility] Comment on above: Performed By: #### C UU, ADDONUAPLUS #### [place] [address] [place] Dipstick and Microscopicon 0 09-06-2023 Appearance (U) Clear Normal Clear [facility] Comment on above: Order Comment: Name Collection Type:: Clean-Voided Midstream Performed By: #### C MP, PT, CBC, PTT, HS TROP #### [address] Bacteria,Urine 1+ High None Seen [facility] Comment on above: Order Comment: Name Collection Type:: Clean-Voided Midstream Performed By: #### C MP, PT, CBC, PTT, HS TROP #### [place] [address] [place] Bilirubin,Urine Negative Normal Negative [facility] Comment on above: Order Comment: Name Collection Type:: Clean-Voided Midstream Performed By: #### C MP, PT, CBC, PTT, HS TROP #### [facility] [address] [place] [address] Glucose Ql (U) Normal Normal Normal [facility] Comment on above: Order Comment: Name Collection Type:: Clean-Voided Midstream Performed By: #### C MP, PT, CBC, PTT, HS TROP #### [place] [address] [place] Hyaline Casts,Urine 0-8 Normal 0-8 [facility] Comment on above: Order Comment: Name Collection Type:: Clean-Voided Midstream Performed By: #### C MP, PT, CBC, PTT, HS TROP #### [place] [address] [place] Ketones Ql (U) Negative Normal Negative [facility] Comment on above: Order Comment: Name Collection Type:: Clean-Voided Midstream Performed By: #### C MP, PT, CBC, PTT, HS TROP #### [address] Leukocyte esterase Test strip Ql (U) 2+ High Negative [facility] Comment on above: Order Comment: Name Collection Type:: Clean-Voided Midstream Performed By: #### C MP, PT, CBC, PTT, HS TROP #### [place] [address] [place] Nitrite,Urine Negative Normal Negative [facility] Comment on above: Order Comment: Name Collection Type:: Clean-Voided Midstream Performed By: #### C MP, PT, CBC, PTT, HS TROP #### [address] Occult Blood,Urine Negative Normal Negative [facility] Comment on above: Order Comment: Name Collection Type:: Clean-Voided Midstream Result Comment: PERF ORMED BY: [place] [address] PATHOLOGIST COIN MACHINE MECHANIC CORIE SILVA M.D. Performed By: #### C MP, PT, CBC, PTT, HS TROP #### [place] [address] [place] Protein,Urine Negative Normal Negative [facility] Comment on above: Order Comment: Name Collection Type:: Clean-Voided Midstream Performed By: #### C MP, PT, CBC, PTT, HS TROP #### [place] [address] [place] RBC,Urine 3-4 Normal 0-4 [facility] Comment on above: Order Comment: Name Collection Type:: Clean-Voided Midstream Performed By: #### C MP, PT, CBC, PTT, HS TROP #### [place] [address] [place] Specificy [place],Urine 1.011 Normal 1.001-1.03 0 [facility] Comment on above: Order Comment: Name Collection Type:: Clean-Voided Midstream Performed By: #### C MP, PT, CBC, PTT, HS TROP #### [address] Squamous Epithelial Cell,Urine 5-9 High 0-2 [facility] Comment on above: Order Comment: Name Collection Type:: Clean-Voided Midstream Performed By: #### C MP, PT, CBC, PTT, HS TROP #### [address] Urobilinogen,Urine Normal Normal Normal [facility] Comment on above: Order Comment: Name Collection Type:: Clean-Voided Midstream Performed By: #### C MP, PT, CBC, PTT, HS TROP #### [address] WBC,Urine 3-4 Normal 0-4 [facility] Comment on above: Order Comment: Name Collection Type:: Clean-Voided Midstream Performed By: #### C MP, PT, CBC, PTT, HS TROP #### [address] Yeast,Urine None Seen Normal None Seen [facility] Comment on above: Order Comment: Name Collection Type:: Clean-Voided Midstream Result Comment: PERF ORMED BY: [place] [address] PATHOLOGIST COIN MACHINE MECHANIC CORIE SILVA M.D. Performed By: #### C MP, PT, CBC, PTT, HS TROP #### [address] Drug Screen,Urineon 09-06-19 24 Amphetamine Screen,Urine Negative Normal Negative [facility] Comment on above: Performed By: #### C MP, PT, CBC, PTT, HS TROP #### [address] Barbiturate Screen,Urine Negative Normal Negative [facility] Comment on above: Performed By: #### C MP, PT, CBC, PTT, HS TROP #### [address] Benzodiazepines Screen,Urine Negative Normal Negative [facility] Comment on above: Performed By: #### C MP, PT, CBC, PTT, HS TROP #### [address] Cannabinoid Screen,Urine Negative Normal Negative [facility] Comment on above: Result Comment: Thes e are unconfirmed results and should not be used for legal purposes. Drug Cut-Off Concentration: AMPH 1000 ng/mL PHILL 200 ng/mL ROBERT 200 ng/mL COCM 300 ng/mL OP 300 ng/mL PCP 25 ng/mL THC 20 ng/mL PERFORMED BY: [place] [address] PATHOLOGIST COIN MACHINE MECHANIC CORIE SILVA M.D. Performed By: #### C MP, PT, CBC, PTT, HS TROP #### [address] Cocaine Screen,Urine Negative Normal Negative [facility] Comment on above: Performed By: #### C MP, PT, CBC, PTT, HS TROP #### [address] Opiate Screen,Urine Positive High Negative [facility] Comment on above: Performed By: #### C MP, PT, CBC, PTT, HS TROP #### [address] Phencyclidine Screen,Urine Negative Normal Negative [facility] Comment on above: Performed By: #### C MP, PT, CBC, PTT, HS TROP #### [address] Erythrocyte distribution wid th [Ratio] by Automated countOrdered By: Maciej Rodriguez on 09-06-2023 Erythrocyte distribution width (RBC) [Ratio] 12.8 % Normal 11.9-15.3 [facility] Comment on above: Performed By: #### C UU, ADDONUAPLUS #### [address] Erythrocytes [#/volume] in B lood by Automated countOrdered By: Maciej Rodriguez on 09-06-2023 RBC (Bld) [#/Vol] 4.73 10*6/uL Normal 3.60-5.00 [facility] Comment on above: Performed By: #### C UU, ADDONUAPLUS #### [facility] [address] [place] [address] [place] Ethanol [Mass/volume] in Ser um or PlasmaOrdered By: Maciej Rodriguez on 09-06-2023 Ethanol [Mass/Vol] mg/dL Normal [facility] Comment on above: Performed By: #### C UU, ADDONUAPLUS #### [facility] [address] Ethanol [Mass/Vol] TNP [facility] Comment on above: Test not performed Ethyl Alcohol Profileon 08-24 Percent Ethanol Not performed Normal [facility] Comment on above: Result Comment: PERF ORMED BY: [place] [address] PATHOLOGIST COIN MACHINE MECHANIC CORIE SILVA M.D. Performed By: #### C UU, ADDONUAPLUS #### [facility] [address] Glucose [Mass/volume] in Ser um or PlasmaOrdered By: Maciej Rodriguez on 09-06-2023 Glucose [Mass/Vol] 115 mg/dL High 70-100 [facility] Comment on above: ADA recommended refe rence rangeRandom Glucose Reference Range is dependent on time and content of last meal. Glucose of more than 200 mg/dL in a nonstressed, ambulatory subject supports the diagnosis of Diabetes Mellitus. Result Comment: [place] om Glucose Reference Range is dependent on time and content of last meal. Glucose of more than 200 mg/dL in a nonstressed, ambulatory subject supports the diagnosis of Diabetes Mellitus. ADA recommended reference range Performed By: #### C UU, ADDONUAPLUS #### [facility] [address] [place] [address] [place] Hematocrit [Volume Fraction] of Blood by Automated countOrdered By: Maciej Rodriguez on 09-06-2023 Hematocrit (Bld) [Volume fraction] 41.2 % Normal 34.0-46.4 [facility] Comment on above: Performed By: #### C UU, ADDONUAPLUS #### [facility] [address] Hemoglobin [Mass/volume] in BloodOrdered By: Maciej Rodriguez on 09-06-2023 Hemoglobin (Bld) [Mass/Vol] 13.3 g/dL Normal 11.8-15.4 [facility] Comment on above: Performed By: #### C UU, ADDONUAPLUS #### [address] Ketones Auto test strip (U) [Mass/Vol]Ordered By: Maciej Rodriguez on 09-06-2023 Ketones (U) [Mass/Vol] Negative Negative [facility] - UrinalysisOrder ed By: Maciej Rodriguez on 09-06-2023 Hyaline casts LM Ql (Urine sed) 0-8 [LPF] 0-8 [facility] Leukocytes [#/volume] correc kenyatta for nucleated erythrocytes in Blood by Automated counOrdered By: Maciej Rodriguez on 09-06-2023 WBC corrected for nucl RBC Auto (Bld) [#/Vol] 5.9 10*3/uL 3.8-11.6 [facility] Leukocytes [#/volume] in Blo od by Automated countOrdered By: Maciej Rodriguez on 09-06-2023 WBC (Bld) [#/Vol] 5.9 10*3/uL Normal 3.8-11.6 [facility] Comment on above: Performed By: #### C UU, ADDONUAPLUS #### [facility] [address] [place] [address] [place] Lymphocytes [#/volume] in Bl ood by Automated countOrdered By: Maciej Rodriguez on 09-06-2023 Lymphocytes (Bld) [#/Vol] 1.7 10*3/uL Normal 1.00-4.8 [facility] Comment on above: Performed By: #### C UU, ADDONUAPLUS #### [facility] [address] [place] [address] [place] Lymphocytes/100 leukocytes i n Blood by Automated countOrdered By: Maciej Rodriguez on 09-06-2023 Lymphocytes/100 WBC (Bld) 28.5 % Normal . [facility] Comment on above: Performed By: #### C UU, ADDONUAPLUS #### [facility] [address] [place] [address] MCH [Entitic mass] by Automa kenyatta countOrdered By: Maciej Rodriguez on 09-06-2023 MCH (RBC) [Entitic mass] 28.2 pg Normal 24.7-34.3 [facility] Comment on above: Performed By: #### C UU, ADDONUAPLUS #### [facility] [address] [place] [address] MCHC Auto (RBC) [Mass/Vol]Or dered By: Maciej Rodriguez on 09-06-2023 MCHC (RBC) [Mass/Vol] 32.4 g/dL 32.0-35.0 [facility] MCV [Entitic volume] by Auto mated countOrdered By: Maciej Rodriguez on 09-06-2023 MCV (RBC) [Entitic vol] 87.1 fL Normal 80-100 [facility] Comment on above: Performed By: #### C UU, ADDONUAPLUS #### [facility] [address] [place] [address] Monocyte distribution width [Entitic volume] in Blood by AutomatedOrdered By: Maciej Rodriguez on 09-06-2023 Monocyte distribution width Auto (Bld) [Entitic vol] 15.52 % 0.00-20.00 [facility] Neutrophils [#/volume] in Bl ood by Automated countOrdered By: Maciej Rodriguez on 09-06-2023 Neutrophils (Bld) [#/Vol] 3.3 10*3/uL Normal 1.8-7.7 [facility] Comment on above: Performed By: #### C UU, ADDONUAPLUS #### [address] Nitrite Test strip Ql (U)Ord ered By: Maciej Rodriguez on 09-06-2023 Nitrite Ql (U) Negative Negative [facility] No Panel InformationOrdered By: Maciej Rodriguez on 09-06-2023 Estimated GFR (CKD-EPI) 42.104 mL/Min [facility] Creatinine Clearance (Chem 31.85 [facility] Nucleated erythrocytes [Pres ence] in Blood by Automated countOrdered By: Maciej Rodriguez on 09-06-2023 Nucleated RBC Auto Ql (Bld) 0.1 /100{WBC} 0-0.5 [facility] Opiates [Presence] in Urine by Screen methodOrdered By: Maciej Rodriguez on 09-06-2023 Opiates Screen Ql (U) Positive Negative [facility] Phencyclidine Screen Ql (U)O rdered By: Maciej Rodriguez on 09-06-2023 Phencyclidine Ql (U) Negative Negative [facility] Platelet mean volume [Entiti c volume] in Blood by Automated countOrdered By: Maciej Rodriguez on 09-06-2023 Platelet mean volume (Bld) [Entitic vol] 7.4 fL Normal 6.3-10.7 [facility] Comment on above: Performed By: #### C UU, ADDONUAPLUS #### [facility] [address] [place] [address] Platelets [#/volume] in Bloo d by Automated countOrdered By: Maciej Rodriguez on 09-06-2023 Platelets (Bld) [#/Vol] 277 10*3/uL Normal 150-450 [facility] Comment on above: Performed By: #### C UU, ADDONUAPLUS #### [facility] [address] [place] [address] [place] Potassium [Moles/volume] in Serum or PlasmaOrdered By: Maciej Rodriguez on 09-06-2023 Potassium [Moles/Vol] 4.5 mmol/L Normal 3.5-5.1 [facility] Comment on above: Performed By: #### C UU, ADDONUAPLUS #### [facility] [address] [place] [address] Protein Auto test strip (U) [Mass/Vol]Ordered By: Maciej Rodriguez on 09-06-2023 Protein (U) [Mass/Vol] Negative Negative [facility] Protein [Mass/volume] in Ser um or PlasmaOrdered By: Maciej Rodriguez on 09-06-2023 Protein [Mass/Vol] 7.5 g/dL Normal 6.4-8.9 [facility] Comment on above: Performed By: #### C UU, ADDONUAPLUS #### [address] Serum globulin measurement b y calculation (mass/volume)Ordered By: Maciej Rodriguez on 09-06-2023 Globulin (S) [Mass/Vol] 3.4 g/dL Normal [facility] Comment on above: Performed By: #### C UU, ADDONUAPLUS #### [address] Serum or plasma albumin/glob ulin mass ratioOrdered By: Maciej Rodriguez on 09-06-2023 Albumin/Globulin [Mass ratio] 1.2 {ratio} [facility] Comment on above: Performed By: #### C UU, ADDONUAPLUS #### [address] Serum or plasma anion gap de terminationOrdered By: Maciej Rodriguez on 09-06-2023 Anion gap [Moles/Vol] 11.0 mmol/L Normal 6.0-15.0 [facility] Comment on above: Performed By: #### C UU, ADDONUAPLUS #### [address] Sodium [Moles/volume] in Ser um or PlasmaOrdered By: Maciej Rodriguez on 09-06-2023 Sodium [Moles/Vol] 134 mmol/L Low 136-145 [facility] Comment on above: Performed By: #### C UU, ADDONUAPLUS #### [address] Specific gravity Auto test s trip (U) [Rel density]Ordered By: Maciej Rodriguez on 09-06-2023 Specific gravity (U) [Rel density] 1.011 1.001-1.03 0 [facility] Squamous epithelial cells de tection in urine sediment by light microscopyOrdered By: Maciej Rodriguez on 09-06-2023 Epithelial cells.squamous LM Ql (Urine sed) 5-9 [HPF] 0-2 [facility] Troponin I High Sensitivityo n 09-06-2023 Troponin I High Sensitivity 2.7 pg/mL Normal 0.0-15.0 [facility] Comment on above: Result Comment: PERF ORMED BY: [place] [address] PATHOLOGIST COIN MACHINE MECHANIC CORIE SILVA M.D. Performed By: #### H S TROP #### [facility] [address] [place] [address] Troponin I.cardiac [Mass/vol ume] in Serum or Plasma by Detection limit <= 0.01 ng/Ordered By: Maciej Rodriguez on 09-06-2023 Troponin I.cardiac DL <= 0.01 ng/mL [Mass/Vol] 2.7 pg/mL 0.0-15.0 [facility] Urea nitrogen [Mass/volume] in Serum or PlasmaOrdered By: Maciej Rodriguez on 09-06-2023 Urea nitrogen [Mass/Vol] 18 mg/dL Normal 7-25 [facility] Comment on above: Performed By: #### C UU, ADDONUAPLUS #### [facility] [address] [place] [address] Urine bacteria detection by automated methodOrdered By: Maciej Rodriguez on 09-06-2023 Bacteria Auto Ql (U) 1+ None Seen [facility] Urine clarity by refractomet ry automatedOrdered By: Maciej Rodriguez on 09-06-2023 Clarity Refractometry automated (U) Clear Clear [facility] Urine glucose measurement by automated test strip (mass/volume)Ordered By: Maciej Rodriguez on 09-06-2023 Glucose Auto test strip (U) [Mass/Vol] Normal mg/dL Normal [facility] Urine hemoglobin detection b y automated test stripOrdered By: Maciej Rodriguez on 09-06-2023 Hemoglobin Auto test strip Ql (U) Negative Negative [facility] Urine leukocyte esterase det ection by automated test stripOrdered By: Maciej Rodriguez on 09-06-2023 Leukocyte esterase Auto test strip Ql (U) 2+ Negative [facility] Urine pH measurement by auto mated test stripOrdered By: Maciej Rodriguez on 09-06-2023 pH (U) 6.5 [pH] Normal 5.0-9.0 [facility] Comment on above: Order Comment: Name Collection Type:: Clean-Voided Midstream Performed By: #### C MP, PT, CBC, PTT, HS TROP #### [address] Urobilinogen Auto test strip (U) [Mass/Vol]Ordered By: Maciej Rodriguez on 09-06-2023 Urobilinogen (U) [Mass/Vol] Normal mg/dL Normal [facility] XR chest 2V*on 09-06-2023 XR chest 2V* [facility] [place] [address] [place] [address] XRay Report Signed Patient: Maegan Dye MR#: [id number] : 1950 Acct:[id number] Age/Sex: 73 / F ADM Date: 09/06/23 Loc: ER Room: Type: [facility] ER Attending Dr: Copies to: Maciej Rodriguez [...] Ángel Littlejohn M.D.09/06/2023 3:17 PM Dictation Location: [place] [address] Transcribed By: YUSEF 09/06/23 1517 Dictated By: Ángel Littlejohn II, MD 09/06/23 1516 Signed By: 09/06/23 151 Normal [facility] Yeast detection in urine sed iment by light microscopyOrdered By: Maciej Rodriguez on 09-06-2023 Yeast LM Ql (Urine sed) None seen [HPF] None Seen [facility] Cholesterol [Mass/volume] in Serum or PlasmaOrdered By: Julian Arechiga on 08-28-2023 Cholesterol [Mass/Vol] 151 mg/dL Normal 140-200 [facility] Comment on above: Chol less than 200 m g/dl low riskChol 201-239 mg/dl borderline riskChol 240 mg/dl and greater high risk Result Comment: Chol less than 200 mg/dl low risk Chol 201-239 mg/dl borderline risk Chol 240 mg/dl and greater high risk Performed By: #### C UU, ADDONUAPLUS #### [facility] [address] Cholesterol in LDL Calc [Mas s/Vol]Ordered By: Julian Arechiga on 08-28-2023 Cholesterol in LDL [Mass/Vol] 94 mg/dL 0-100 [facility] Comment on above: LDL ATP III CLASSIFI CATIONLDL less than 100 mg/dL OptimalLDL 100-129 mg/dL Near or above optimalLDL 130-159 mg/dL Borderline highLDL 160-189 mg/dL HighLDL greater than 189 mg/dL Very high Cholesterol in VLDL Calc [Ma ss/Vol]Ordered By: Julian Arechiga on 08-28-2023 Cholesterol in VLDL [Mass/Vol] 15 mg/dL [facility] Lipid Panelon 08-28-2023 LDL Cholesterol,Calculated 94 mg/dL Normal 0-100 [facility] Comment on above: Result Comment: LDL ATP III CLASSIFICATION LDL less than 100 mg/dL Optimal LDL 100-129 mg/dL Near or above optimal LDL 130-159 mg/dL Borderline high LDL 160-189 mg/dL High LDL greater than 189 mg/dL Very high Performed By: #### C UU, ADDONUAPLUS #### [facility] [address] Triglyceride w/Reflex 79 mg/dL Normal 0-149 [facility] Comment on above: Result Comment: TRIG ATP III CLASSIFICATION TRIG less than 150 mg/dL Normal TRIG 150-199 mg/dL Borderline high TRIG 200-500 mg/dL High TRIG greater than 500 mg/dL Very high Standard traceable to the Center for Disease Conrtrol and Prevention (CDC) test method. Performed By: #### C KRISTINE BAONUAPLUS #### [address] VLDL CHOLESTEROL 15 mg/dL Normal [facility] Comment on above: Performed By: #### C UChristopher, KRISTINEONUAPLUS #### [address] Serum or plasma high density lipoprotein (HDL) cholesterol measurementOrdered By: Julian Arechiga on 08-28-2023 Cholesterol in HDL [Mass/Vol] 41 mg/dL Normal 23-92 [facility] Comment on above: HDL CHOL ATP-III CLA SSIFICATION Cardiovascular RiskHDL > or equal to 60 mg/dL LOWHDL < 40 mg/dL HIGH Result Comment: HDL CHOL ATP-III CLASSIFICATION Cardiovascular Risk HDL > or equal to 60 mg/dL LOW HDL < 40 mg/dL HIGH Performed By: #### C KRISTINE BAONUAPLUS #### [address] Serum or plasma total choles terol/high density lipoprotein (HDL) cholesterol mass ratOrdered By: Julian Arechiga on 08-28-2023 Cholesterol.total/Chol esterol in HDL [Mass ratio] 3.7 {ratio} Normal <5.0 [facility] Comment on above: Performed By: #### C UCRISTY WhiteUAPLUS #### [address] Thyroid Stim Hormone w/Rflxo n 08-28-2023 Thyroid Stim Hormone w/Rflx 2.83 u[iU]/mL Normal 0.45-5.33 [facility] Comment on above: Performed By: #### C UKRISTINE WhiteONUAPLUS #### [address] Thyrotropin [Units/volume] i n Serum or PlasmaOrdered By: Julian Arechiga on 08-28-2023 TSH Qn 2.83 m[IU]/L 0.45-5.33 [facility] Triglyceride [Mass/volume] i n Serum or PlasmaOrdered By: Julian Hawk on 08-28-2023 Triglyceride [Mass/Vol] 79 mg/dL 0-149 [facility] Comment on above: TRIG ATP III CLASSIF ICATIONTRIG less than 150 mg/dL NormalTRIG 150-199 mg/dL Borderline highTRIG 200-500 mg/dL High TRIG greater than 500 mg/dL Very highStandard traceable to the Center for Disease Conrtrol and Prevention (CDC) test method. Vitamin D 25 Hydroxy Totalon 08-28-2023 Vitamin D 25 Hydroxy Total 47.6 ng/mL Normal 30-100 [facility] Comment on above: Result Comment: GAGE MIN D STATUS 25(OH)VITAMIN D RANGE (ng/mL) Deficient <20 Insufficient 20 to <30 Sufficient 30 to 100 Reference: Catalina Larry, Omega GODDARD, et al. Evaluation,treatment, and prevention of vitamin D deficiency; an Endocrine Society clinical practice guideline. JCEM. 2010; 96(7):1911-. PERFORMED BY: [place] [address] PATHOLOGIST COIN MACHINE MECHANIC CORIE SILVA M.D. Performed By: #### C LOBO BA #### [address] Vitamin D+Metabolites [Mass/ volume] in Serum or PlasmaOrdered By: Julian Arechiga on 08-28-2023 Vitamin D+Metabolites [Mass/Vol] 47.6 ng/mL 30-100 [facility] Comment on above: VITAMIN D STATUS 25( [place])VITAMIN D RANGE (ng/mL) Deficient <20 Insufficient 20 to <30Sufficient 30 to 100Reference: Catalina Larry, Omega GODDARD, et al. Evaluation,treatment, and prevention of vitamin D deficiency; an Endocrine Society clinical practice guideline. JCEM. 2010; 96(7):1911-30. CBC w/ Auto Diffon 4 Basophils/100 WBC (Bld) 0.8 % Normal 0.0-2.0 [facility] Comment on above: Performed By: #### 4 [id number], [id number] #### [facility] [address] [place] [address] Basophils/Leukocytes Auto (Bld) [Pure # fraction] 0.1 E9/L Normal 0.0-0.2 [facility] Comment on above: Performed By: #### 4 [id number], [id number] #### [facility] [address] [place] [address] Eosinophils (Bld) [#/Vol] 0.2 E9/L Normal 0.0-0.5 [facility] Comment on above: Performed By: #### 4 [id number], [id number] #### [facility] [address] [place] [address] Eosinophils/100 WBC (Bld) 3.2 % Normal 0.0-8.0 [facility] Comment on above: Performed By: #### 4 [id number], [id number] #### [facility] [address] [place] [address] Erythrocyte distribution width (RBC) [Ratio] 13.2 % Normal 10.9-14.2 [facility] Comment on above: Performed By: #### 4 [id number], [id number] #### [facility] [address] [place] [address] Hematocrit (Bld) [Volume fraction] 40.9 % Normal 34.0-46.0 [facility] Comment on above: Performed By: #### 4 [id number], [id number] #### [facility] [address] [place] [address] Hemoglobin (Bld) [Mass/Vol] 13.2 g/dL Normal 12.0-16.0 [facility] Comment on above: Performed By: #### 4 [id number], [id number] #### [facility] [address] [place] [address] Lymphocytes (Bld) [#/Vol] 1.3 E9/L Normal 1.0-4.0 [facility] Comment on above: Performed By: #### 4 [id number], [id number] #### [facility] [address] [place] [address] Lymphocytes/100 WBC (Bld) 19.7 % Normal 14.0-50.0 [facility] Comment on above: Performed By: #### 4 [id number], [id number] #### [facility] [address] [place] [address] MCH (RBC) [Entitic mass] 28.3 pg Normal 27.0-34.0 [facility] Comment on above: Performed By: #### 4 [id number], [id number] #### [facility] [address] [place] [address] MCHC (RBC) [Mass/Vol] 32.3 g/dL Normal 31.4-36.0 [facility] Comment on above: Performed By: #### 4 [id number], [id number] #### [facility] [address] [place] [address] MCV (RBC) [Entitic vol] 87.8 fL Normal 80.0-100.0 [facility] Comment on above: Performed By: #### 4 [id number], [id number] #### [facility] [address] [place] [address] Monocytes (Bld) [#/Vol] 0.6 E9/L Normal 0.2-1.0 [facility] Comment on above: Performed By: #### 4 [id number], [id number] #### [facility] [address] [place] [address] Neutrophils (Bld) [#/Vol] 4.4 E9/L Normal 2.0-7.5 [facility] Comment on above: Performed By: #### 4 [id number], [id number] #### [facility] [address] [place] [address] Neutrophils/100 WBC (Bld) 67.4 % Normal 36.0-75.0 [facility] Comment on above: Performed By: #### 4 [id number], [id number] #### [facility] [address] [place] [address] Platelet 236.0 E9/L Normal 150.0-500. 0 [facility] Comment on above: Performed By: #### 4 [id number], [id number] #### [facility] [address] [place] [address] Platelet mean volume (Bld) [Entitic vol] 7.3 fL Normal 6.4-10.8 [facility] Comment on above: Performed By: #### 4 [id number], [id number] #### [facility] [address] [place] [address] RBC (Bld) [#/Vol] 4.7 E12/L Normal 4.3-5.9 [facility] Comment on above: Performed By: #### 4 [id number], [id number] #### [facility] [address] [place] [address] WBC corrected for nucl RBC Auto (Bld) [#/Vol] 6.6 E9/L Normal 4.0-11.0 [facility] Comment on above: Performed By: #### 4 [id number], [id number] #### [facility] [address] [place] [address] CHEMISTRYOrdered By: SYSTEM SYSTEM on 08-27-2023 Albumin [...] 08-27-2023 Albumin [Mass/Vol] 4.1 g/dL Normal 3.3-5.0 [facility] Comment on above: Performed By: #### 4 [id number], [id number] #### [facility] [address] [place] [address] Albumin/Globulin (S) [Mass conc ratio] 1.4 Normal 1.1-2.2 [facility] Comment on above: Performed By: #### 4 [id number], [id number] #### [facility] [address] [place] [address] ALP [Catalytic activity/Vol] 77 Int._Unit/L Normal 21-98 [facility] Comment on above: Performed By: #### 4 [id number], [id number] #### [facility] [address] [place] [address] ALT No additional P-5'-P [Catalytic activity/Vol] 10 Int._Unit/L Normal 6-46 [facility] Comment on above: Performed By: #### 4 [id number], [id number] #### [facility] [address] [place] [address] Anion gap [Moles/Vol] 11 mmol/L Normal 6-16 [facility] Comment on above: Performed By: #### 4 [id number], [id number] #### [facility] [address] [place] [address] AST [Catalytic activity/Vol] 23 Int._Unit/L Normal 5-43 [facility] Comment on above: Performed By: #### 4 [id number], [id number] #### [facility] [address] [place] [address] Bilirubin [Mass/Vol] 1.0 mg/dL Normal 0.0-1.1 [facility] Comment on above: Performed By: #### 4 [id number], [id number] #### [facility] [address] [place] [address] Calcium [Mass/Vol] 9.2 mg/dL Normal 8.9-11.1 [facility] Comment on above: Performed By: #### 4 [id number], [id number] #### [facility] [address] [place] [address] Chloride [Moles/Vol] 104 mmol/L Normal 101-111 [facility] Comment on above: Performed By: #### 4 [id number], [id number] #### [facility] [address] [place] [address] CO2 [Moles/Vol] 28 mmol/L Normal 21-31 [facility] Comment on above: Performed By: #### 4 [id number], [id number] #### [facility] [address] [place] [address] Creatinine [Mass/Vol] 1.1 mg/dL Normal 0.5-1.3 [facility] Comment on above: Performed By: #### 4 [id number], [id number] #### [facility] [address] [place] [address] Globulin (S) [Mass/Vol] 3.0 g/dL Normal 1.4-4.0 [facility] Comment on above: Performed By: #### 4 [id number], [id number] #### [facility] [address] [place] [address] Glucose [Mass/Vol] 116 mg/dL Normal 55-199 [facility] Comment on above: Performed By: #### 4 [id number], [id number] #### [facility] [address] [place] [address] Potassium [Moles/Vol] 3.4 mmol/L Low 3.5-5.3 [facility] Comment on above: Performed By: #### 4 [id number], [id number] #### [facility] [address] [place] [address] Protein [Mass/Vol] 7.1 g/dL Normal 6.0-7.8 [facility] Comment on above: Performed By: #### 4 [id number], [id number] #### [facility] [address] [place] [address] Sodium [Moles/Vol] 140 mmol/L Normal 135-145 [facility] Comment on above: Performed By: #### 4 [id number], [id number] #### [facility] [address] [place] [address] Urea nitrogen [Mass/Vol] 10 mg/dL Normal 5-21 [facility] Comment on above: Performed By: #### 4 [id number], [id number] #### [facility] [address] [place] [address] Urea nitrogen/Creatinine [Mass ratio] 9 No Units Low 10-20 [facility] Comment on above: Performed By: #### 4 [id number], [id number] #### [facility] [address] [place] [address] Consent for Treatmenton Consent for Treatment [id number] Normal [facility] ED Clinical Summaryon 2023 ED Clinical Summary (Inserted Image. Sara ble to display) [address] [address] ED Clinical Summary Person Information [facility]: [facility] Age[facility] 73 Years : 1950 Sex: Female Language: Peruvian PCP: AZUL GORMAN CNP Marital Status: Phone: [phone] Visit Id: Visit Reason: Psychiatric screening exam; [...] 08/27/2023 12:13:35 08/27/2023 12:13:35 08/27/2023 12:13:35 ADDRESS: [facility] [place] [address] [facility] [id number] PHYS DOC NOTES: MEDICAL INFORMATION: Prescriptions Given: [...] 0. fluticasone nasal (fluticasone 0.05 mg/inh Nasal [place]) 2 Sprays Nasal Inhalation every day. each [...] Instructions: Follow up: DIAGNOSIS: Psychiatric problem Normal [facility] ED Note-Physicianon 08-27-19 ED Note-Physician Basic Information Time Seen: Alvaro BYRD, Rodrigue Granado 08/27/2023 08:09 Chief Complaint pt brought here for psych eval, endoscopy technican told EMS that she was trying to kick her son out. was at [facility] friday for psych eval and urinary issues and talked about fdc placement then. pt denies any urinary issues today, SI or HI. pt A&Ox4 History of Present Illness 73-year-old female reports to the emergency department with chief complaint of a psych evaluation. She reports that she was sent here for a psych eval and possible urinary issues. Reports that her son wants her placed in the fdc, but that she does not want to go. She states that her and her son had argument, and she called the surveillance sensor officer. He reports there are people in her [...] in the morning, so she called the surveillance sensor officer. She states that currently being treated with [...] and Complexity of Problems Differential Diagnosis: [] [facility] Data External documents reviewed: [] My [...] patient. He decided on voluntary admission to [facility]. Dr. Arechiga with excepting physician. Patient will be transferred to [address] Shared decision making: [] Code status: [] Assessment/Plan Psychiatric problem (F99: Mental disorder, not otherwise specified) Orders: CBC w/ Auto Diff Communication Order Comprehensive Metabolic Panel Consult to Mental Health Drug Screen Urine ECG 12 Lead Adult eGFR Ethanol Level Transfer Patient to with Cult Rflx Disposition Plan Patient Discharge Condition stable Discharge Disposition Transferred to [address]. Discharge Prescription List Prescriptions No active prescription medications Follow-up No qualifying data available Attestation Patient seen and evaluated by the physician bookkeeping assistant. Attending physician was present in the emergency department and supervised care. This visit was performed by both the physician and an APC. I performed all aspects of the MDM as documented. This report was transcribed using voice recognition software. Every effort was made to ensure accuracy, however, inadvertently computerized fisheries director mistakes may be present. Appropriate healthcare PPE [...] as above (more content not included)... Normal [facility] Comment on above: Result Comment: Elec tronically Signed By: Rodrigue John PA-C\.br\Date and Time Signed: 08/27/23 11:50 EDT\.br\Electronically Co-Signed By: Johny Willson DO\.br\Date and Time Co-Signed: 08/27/23 13:24 EDT ED Patient Education Noteon 08-27-2023 ED Patient Education Note Normal [facility] ED Patient Summaryon 024 ED Patient Summary (Inserted Image. Sara ble to display) [place] [id number] Patient Discharge Instructions Person Information Name: MAEGAN DYE Age: 73 Years Arrival Date: 08/27/2023 08:02:54 Discharge Diagnosis: Psychiatric problem Primary Care Physician: AZUL GORMAN CNP Provider Information Primary Provider: Johny Willson DO Advanced Supervisor Boiler Repair:None The exam and treatment you received in the Emergency Department were for an urgent problem and are not intended as complete care. It is important that you follow up with a doctor, nurse practitioner, or physician?s bookkeeping assistant for ongoing care. If your symptoms [...] opioids can be used to help relieve pyuqbbtc-zj-bisozg pain and are often prescribed following a [...] be struggling with addiction, tell your health pet caregiver and ask for guidance or call [facility]S National Helpline at 5-723-833-SYFH. e Source: [place] Department of Health and Human Services/Center for Disease Control & Prevention [facility] Medications Given: Medication Dose Route No medications found (more content not included)... Normal [facility] Ethanolon 08-27-2023 Ethanol Lvl <10 Normal <=11 [facility] Comment on above: Performed By: #### 2 [id number] #### [facility] [address] [place] [address] HEMATOLOGYOrdered By: SYSTEM SYSTEM on 08-27-2023 Basophils/100 [...] Remisol Heme Outside Recordson 08-27-2023 Outside Records [id number] Normal [facility] Transfer Documentson 024 Transfer Documents [id number] Normal [facility] U Drug Screenon 08-27-2023 Amphetamines Screen method >1000 ng/mL Ql (U) Negative Normal NEGATIVE [facility] Comment on above: Result Comment: Nega tive Cutoff: <1000 ng/mL Performed By: #### 2 [id number] #### [facility] [address] [place] [address] Barbiturates Screen Ql (U) Negative Normal NEGATIVE [facility] Comment on above: Result Comment: Nega tive Cutoff: <200 ng/mL Performed By: #### 2 [id number] #### [facility] [address] [place] [address] Benzodiazepines Ql (U) Negative Normal NEGATIVE [facility] Comment on above: Result Comment: Nega tive Cutoff: <200 ng/mL Performed By: #### 2 [id number] #### [facility] [address] [place] [address] Cannabinoids Screen Ql (U) Negative Normal NEGATIVE [facility] Comment on above: Result Comment: Nega tive Cutoff: <50 ng/mL Performed By: #### 2 [id number] #### [facility] [address] [place] [address] Cocaine Ql (U) Negative Normal NEGATIVE [facility] Comment on above: Result Comment: Nega tive Cutoff: <300 ng/mL Performed By: #### 2 [id number] #### [facility] [address] [place] [address] Opiates Screen Ql (U) Positive Abnormal NEGATIVE Fis [facility] Comment on above: Result Comment: Resu lt Verified by Repeat Analysis Unconfirmed by an Alternate Method No Confirmation Requested by Physician Result called to Mary Lou (ER) by SW at 1018 Negative Cutoff: <300 ng/mL Performed By: #### 2 [id number] #### [facility] [address] [place] [address] Phencyclidine Screen method >25 ng/mL Ql (U) Negative Normal NEGATIVE [facility] Comment on above: Result Comment: Nega tive Cutoff: <25 ng/mL These drug screen results are to be used for medical (i.e., treatment) purposes only. Unconfirmed drug screening results must not be used for non-medical purposes (e.g., employment testing, legal testing). Performed By: #### 2 [id number] #### [facility] [address] [place] [address] U Fentanyl Negative Normal NEGATIVE [facility] Comment on above: Result Comment: Nega tive Cutoff: <5 ng/mL These drug screen results are to be used for medical (i.e., treatment) purposes only. Unconfirmed drug screening results must not be used for non-medical purposes (e.g., employment testing, legal testing). Performed By: #### 2 [id number] #### [facility] [address] [place] [address] UA with Cult Rflxon 08-27-19 24 Color (U) Light-Yellow Normal Yellow [facility] Comment on above: Result Comment: Micr oscopic readings are only performed on those samples that meet specific criteria set forth by [facility]. Performed By: #### 2 [id number], [id number] #### [facility] [address] [place] [address] Glucose (U) [Mass/Vol] Negative Normal Negative [facility] Comment on above: Performed By: #### 2 [id number], [id number] #### [facility] [address] [place] [address] Ketones Ql (U) Negative Normal Negative [facility] Comment on above: Performed By: #### 2 [id number], [id number] #### [facility] [address] [place] [address] UA Blood Negative Normal Negative [facility] Comment on above: Performed By: #### 2 [id number], [id number] #### [facility] [address] [place] [address] UA Clarity Clear Normal Clear [facility] Comment on above: Performed By: #### 2 455690, [id number] #### [facility] [address] [place] [address] UA Leuk Est Negative Normal Negative [facility] Comment on above: Performed By: #### 2 218857, [id number] #### [facility] [address] [place] [address] UA Nitrite Negative Normal Negative [facility] Comment on above: Performed By: #### 2 199399, [id number] #### [facility] [address] [place] [address] UA pH 6.0 Invalid Interpretation Code 5.0-9.0 [facility] Comment on above: Performed By: #### 2 868120, [id number] #### [facility] [address] [place] [address] UA Protein Negative Normal Negative [facility] Comment on above: Performed By: #### 2 232900, [id number] #### [facility] [address] [place] [address] UA Spec Grav 1.014 Invalid Interpretation Code 1.005-1.03 0 [facility] Comment on above: Performed By: #### 2 [id number], [id number] #### [facility] [address] [place] [address] UA Urobilinogen Negative Normal Negative [facility] Comment on above: Performed By: #### 2 692909, [id number] #### [facility] [address] [place] [address] Urobilinogen (U) [Mass/Vol] Negative Normal Negative [facility] Comment on above: Performed By: #### 2 [id number], [id number] #### [facility] [address] [place] [address] UA Spec Desc Catheter Normal [facility] Comment on above: Performed By: #### 2 118264, [id number] #### [facility] [address] [place] [address] URINALYSISOrdered By: SYSTEM SYSTEM on 08-27-2023 Color (U) Light-Yellow 3 (08/27/23 8:49 AM) Normal Yellow [facility] [place] [place] UA Auto SS Comment on above: Interpretive Data: M icroscopic readings are only performed on those samples that meet specific criteria set forth by [facility]. Glucose (U) [Mass/Vol] Negative Normal Negat ivemg /dL [facility] [place] UA Auto SS Ketones Ql (U) Negative [...] AM) Invalid Interpretation Code 1.005 - 1.030 [facility] [place] UA Auto SS UA Urobilinogen Negative Normal Negativemg /dL [facility] [place] UA Auto SS Urobilinogen (U) [Mass/Vol] Negative Normal Negativemg /dL [facility] [place] UA Auto SS URINALYSISOrdered By: Rodrigue ferrara on 08-27-2023 UA Spec Desc Catheter (08/27/23 8:49 AM) Normal [facility] [place] UA Auto SS Work Phone: eGFRon 08-27-2023 eGFR 52 mL/min/1.73 m2 Low >=59 [facility] Comment on above: Order Comment: Order added by Discern Expert. Performed By: #### 4 [id number], [id number] #### [facility] [address] [place] [address] PT - Orderson 08-26-2023 PT - Orders [id number] Normal [facility] Alanine aminotransferase [En zymatic activity/volume] in Serum or PlasmaOrdered By: Senthil Torres on 08-22-2023 ALT [Catalytic activity/Vol] 8 U/L Normal [facility] Comment on above: Performed By: #### C UU, ADDONUAPLUS #### [address] Albumin [Mass/volume] in Ser um or Plasma by Bromocresol green (BCG) dye binding methoOrdered By: Senthil Torres on 08-22-2023 Albumin BCG dye [Mass/Vol] 4.2 g/dL 3.5-5.7 [facility] Alkaline phosphatase [Enzyma tic activity/volume] in Serum or PlasmaOrdered By: Senthil Torres on 08-22-2023 ALP [Catalytic activity/Vol] 82 U/L Normal 34-104 [facility] Comment on above: Performed By: #### C UU, ADDONUAPLUS #### [facility] [address] [place] [address] Aspartate aminotransferase [ Enzymatic activity/volume] in Serum or PlasmaOrdered By: Senthil Torres on 08-22-2023 AST [Catalytic activity/Vol] 19 U/L Normal 13-39 [facility] Comment on above: Performed By: #### C UU, ADDONUAPLUS #### [facility] [address] [place] [address] Automated basophil %Ordered By: Senthil Torres on 08-22-2023 Basophils/100 WBC (Bld) 0.7 % Normal . [facility] Comment on above: Performed By: #### C UU, ADDONUAPLUS #### [address] Automated basophil countOrde red By: Senthil Torres on 08-22-2023 Basophils (Bld) [#/Vol] 0.1 10*3/uL Normal 0.0-0.2 [facility] Comment on above: Result Comment: PERF ORMED BY: [place] [address] PATHOLOGIST COIN MACHINE MECHANIC CORIE SILVA M.D. Performed By: #### C UU, ADDONUAPLUS #### [facility] [address] [place] [address] Automated blood monocyte cou ntOrdered By: Senthil Torres on 08-22-2023 Monocytes (Bld) [#/Vol] 0.6 10*3/uL Normal 0.0-0.8 [facility] Comment on above: Performed By: #### C UU, ADDONUAPLUS #### [facility] [address] [place] [address] Automated eosinophil %Ordere d By: Senthil Torres on 08-22-2023 Eosinophils/100 WBC (Bld) 2.9 % Normal . [facility] Comment on above: Performed By: #### C UU, ADDONUAPLUS #### [address] Automated eosinophil countOr dered By: Senthil Torres on 08-22-2023 Eosinophils (Bld) [#/Vol] 0.2 10*3/uL Normal 0.0-0.45 [facility] Comment on above: Performed By: #### C UU, ADDONUAPLUS #### [address] Automated erythrocytes count in urine sediment (number/area)Ordered By: PROVIDER TEMP on 08-22-2023 RBC Auto (Urine sed) [#/Area] 1-2 [HPF] 0-4 [facility] Automated leukocytes count i n urine sediment (number/area)Ordered By: PROVIDER TEMP on 08-22-2023 WBC Auto (Urine sed) [#/Area] 20-49 [HPF] 0-4 [facility] Automated monocyte %Ordered By: Senthil Torres on 08-22-2023 Monocytes/100 WBC (Bld) 8.2 % Normal . [facility] Comment on above: Performed By: #### C UU, ADDONUAPLUS #### [address] Automated neutrophil %Ordere d By: Senthil Torres on 08-22-2023 Neutrophils/100 WBC (Bld) 66.3 % Normal . [facility] Comment on above: Performed By: #### C UU, ADDONUAPLUS #### [address] Automated urine color determ inationOrdered By: PROVIDER TEMP on 08-22-2023 Color (U) Yellow Normal Yellow [facility] Comment on above: Order Comment: Name Collection Type:: Clean-Voided Midstream Performed By: #### C UU, ADDONUAPLUS #### [facility] [address] Bilirubin Test strip Ql (U)O rdered By: PROVIDER QUIQUE on 08-22-2023 Bilirubin Ql (U) Negative Negative [facility] Bilirubin.total [Mass/volume ] in Serum or PlasmaOrdered By: Senthil Torres on 08-22-2023 Bilirubin [Mass/Vol] 0.8 mg/dL Normal 0.3-1.0 [facility] Comment on above: Performed By: #### C UU, ADDONUAPLUS #### [facility] [address] head/brain wo conon 08-21 CT head/brain wo con [facility] [address] [place] [address] [place] [address] CT Scan Report Signed Patient: Maegan Dye MR#: [id number] : 1950 Acct:[id number] Age/Sex: 73 / F ADM Date: 08/22/23 Loc: ER Room: Type: [facility] ER Attending Dr: Copies to: Senthil Torres [...] Timo Martinez M.D.08/22/2023 1:57 PM Dictation Location: [place] [address] Transcribed By: [facility] 08/22/23 1357 Dictated By: Timo Martinez DO 08/22/23 1352 Signed By: 08/22/23 1357 Normal [facility] Calcium [Mass/volume] in Ser um or PlasmaOrdered By: Senthil Torres on 08-22-2023 Calcium [Mass/Vol] 9.3 mg/dL Normal 8.6-10.3 [facility] Comment on above: Performed By: #### C UU, ADDONUAPLUS #### [address] Carbon dioxide, total [Moles /volume] in Serum or PlasmaOrdered By: Senthil Torres on 08-22-2023 CO2 [Moles/Vol] 31.0 mmol/L Normal 21.0-31.0 [facility] Comment on above: Performed By: #### C UU, ADDONUAPLUS #### [place] [address] [place] Chloride [Moles/volume] in S clarisa or PlasmaOrdered By: Senthil Torres on 08-22-2023 Chloride [Moles/Vol] 102 mmol/L Normal 98-107 [facility] Comment on above: Performed By: #### C UU, ADDONUAPLUS #### [place] [address] [place] Complete Blood Count Auto Di ffon 08-22-2023 Mean Corpuscular HGB Conc 33.0 g/dL Normal 32.0-35.0 [facility] Comment on above: Performed By: #### C UU, ADDONUAPLUS #### [place] [address] [place] Monocytes/100 WBC (Bld) 16.36 % Normal 0.00-20.00 [facility] Comment on above: Performed By: #### C UU, ADDONUAPLUS #### [facility] [address] [place] [address] [place] NRBC% 0.1 /100{WBC} Normal 0-0.5 [facility] Comment on above: Performed By: #### C UU, ADDONUAPLUS #### [address] Comprehensive Metabolic Pane isauro 08-22-2023 Albumin [Mass/Vol] 4.2 g/dL Normal 3.5-5.7 [facility] Comment on above: Performed By: #### C UU, ADDONUAPLUS #### [address] Creatinine Clr Calc Pharmacy 33.43 Normal [facility] Comment on above: Result Comment: PERF ORMED BY: [place] [address] PATHOLOGIST COIN MACHINE MECHANIC CORIE SILVA M.D. Performed By: #### C UU, ADDONUAPLUS #### [address] GFR/1.73 sq M.predicted MDRD (S/P/Bld) [Vol rate/Area] 49.679 mL/min/{1.73_m2} Normal [facility] Comment on above: Performed By: #### C UU, ADDONUAPLUS #### [address] Creatine kinase [Enzymatic a ctivity/volume] in Serum or PlasmaOrdered By: Senthil Torres on 08-22-2023 CK [Catalytic activity/Vol] 117 U/L Normal 30-223 [facility] Comment on above: Performed By: #### C UU, ADDONUAPLUS #### [address] Creatinine [Mass/volume] in Serum or PlasmaOrdered By: Senthil Torres on 08-22-2023 Creatinine [Mass/Vol] 1.15 mg/dL Normal 0.60-1.20 [facility] Comment on above: Performed By: #### C UU, ADDONUAPLUS #### [place] [address] [place] Dipstick and Microscopicon 0 08-22-2023 Appearance (U) Cloudy Critically abnormal Clear [facility] Comment on above: Order Comment: Name Collection Type:: Clean-Voided Midstream Performed By: #### C UU, ADDONUAPLUS #### [facility] [address] [place] [address] Bacteria,Urine None Seen Normal None Seen [facility] Comment on above: Order Comment: Name Collection Type:: Clean-Voided Midstream Performed By: #### C UU, ADDONUAPLUS #### [address] Bilirubin,Urine Negative Normal Negative [facility] Comment on above: Order Comment: Name Collection Type:: Clean-Voided Midstream Performed By: #### C UU, ADDONUAPLUS #### [address] Glucose Ql (U) Normal Normal Normal [facility] Comment on above: Order Comment: Name Collection Type:: Clean-Voided Midstream Performed By: #### C UU, ADDONUAPLUS #### [place] [address] [place] Hyaline Casts,Urine 0-8 Normal 0-8 [facility] Comment on above: Order Comment: Name Collection Type:: Clean-Voided Midstream Performed By: #### C UU, ADDONUAPLUS #### [address] Ketones Ql (U) Negative Normal Negative [facility] Comment on above: Order Comment: Name Collection Type:: Clean-Voided Midstream Performed By: #### C UU, ADDONUAPLUS #### [address] Leukocyte esterase Test strip Ql (U) 4+ High Negative [facility] Comment on above: Order Comment: Name Collection Type:: Clean-Voided Midstream Performed By: #### C UU, ADDONUAPLUS #### [place] [address] [place] Nitrite,Urine Negative Normal Negative [facility] Comment on above: Order Comment: Name Collection Type:: Clean-Voided Midstream Performed By: #### C UU, ADDONUAPLUS #### [address] Occult Blood,Urine Negative Normal Negative [facility] Comment on above: Order Comment: Name Collection Type:: Clean-Voided Midstream Result Comment: PERF ORMED BY: [place] [address] PATHOLOGIST COIN MACHINE MECHANIC CORIE SILVA M.D. Performed By: #### C UU, ADDONUAPLUS #### [address] Protein,Urine Negative Normal Negative [facility] Comment on above: Order Comment: Name Collection Type:: Clean-Voided Midstream Performed By: #### C UU, ADDONUAPLUS #### [address] RBC,Urine 1-2 Normal 0-4 [facility] Comment on above: Order Comment: Name Collection Type:: Clean-Voided Midstream Performed By: #### C UU, ADDONUAPLUS #### [place] [address] [place] Specificy [place],Urine 1.013 Normal 1.001-1.03 0 [facility] Comment on above: Order Comment: Name Collection Type:: Clean-Voided Midstream Performed By: #### C UU, ADDONUAPLUS #### [place] [address] [place] Squamous Epithelial Cell,Urine 10-19 High 0-2 [facility] Comment on above: Order Comment: Name Collection Type:: Clean-Voided Midstream Performed By: #### C UU, ADDONUAPLUS #### [place] [address] [place] Urobilinogen,Urine Normal Normal Normal [facility] Comment on above: Order Comment: Name Collection Type:: Clean-Voided Midstream Performed By: #### C UU, ADDONUAPLUS #### [place] [address] [place] WBC,Urine 20-49 High 0-4 [facility] Comment on above: Order Comment: Name Collection Type:: Clean-Voided Midstream Performed By: #### C UU, ADDONUAPLUS #### [facility] [address] [place] [address] Yeast,Urine 3+ Critically abnormal None Seen [facility] Comment on above: Order Comment: Name Collection Type:: Clean-Voided Midstream Result Comment: PERF ORMED BY: [place] [address] PATHOLOGIST COIN MACHINE MECHANIC CORIE SILVA M.D. Performed By: #### C UU, ADDONUAPLUS #### [facility] [address] [place] [address] ECG 12 lead ECGon 08-22-2023 ECG 12 lead ECG [facility] [place] [address] [place] [address] Electrocardiograph Report Signed Patient: Maegan Dye MR#: [id number] : 1950 Acct:[id number] Age/Sex: 73 / F ADM Date: 08/22/23 Loc: ER Room: Type: [facility] ER Attending Dr: Ordering Provider: Senthil Torres [...] Chandan Encarnacion MD 08/22/23 1500 Normal [facility] Erythrocyte distribution wid th [Ratio] by Automated countOrdered By: Senthil Torres on 08-22-2023 Erythrocyte distribution width (RBC) [Ratio] 13.0 % Normal 11.9-15.3 [facility] Comment on above: Performed By: #### C UU, ADDONUAPLUS #### [address] Erythrocytes [#/volume] in B lood by Automated countOrdered By: Senthil Torres on 08-22-2023 RBC (Bld) [#/Vol] 4.41 10*6/uL Normal 3.60-5.00 [facility] Comment on above: Performed By: #### C UU, ADDONUAPLUS #### [address] Glucose [Mass/volume] in Ser um or PlasmaOrdered By: Senthil Torres on 08-22-2023 Glucose [Mass/Vol] 104 mg/dL High 70-100 [facility] Comment on above: ADA recommended refe rence rangeRandom Glucose Reference Range is dependent on time and content of last meal. Glucose of more than 200 mg/dL in a nonstressed, ambulatory subject supports the diagnosis of Diabetes Mellitus. Result Comment: [place] om Glucose Reference Range is dependent on time and content of last meal. Glucose of more than 200 mg/dL in a nonstressed, ambulatory subject supports the diagnosis of Diabetes Mellitus. ADA recommended reference range Performed By: #### C UU, ADDONUAPLUS #### [address] Hematocrit [Volume Fraction] of Blood by Automated countOrdered By: Senthil Torres on 08-22-2023 Hematocrit (Bld) [Volume fraction] 38.5 % Normal 34.0-46.4 [facility] [facility] Comment on above: Performed By: #### C UU, KRISTINEONAUSTINPLUS #### [address] Hemoglobin [Mass/volume] in BloodOrdered By: Senthil Torres on 08-22-2023 Hemoglobin (Bld) [Mass/Vol] 12.7 g/dL Normal 11.8-15.4 [facility] Comment on above: Performed By: #### C UU, ADDONUAPLUS #### [facility] [address] Ketones Auto test strip (U) [Mass/Vol]Ordered By: PROVIDER TEMP on 08-22-2023 Ketones (U) [Mass/Vol] Negative Negative [facility] - UrinalysisOrder ed By: PROVIDER TEMP on 08-22-2023 Hyaline casts LM Ql (Urine sed) 0-8 [LPF] 0-8 [facility] Leukocytes [#/volume] correc kenyatta for nucleated erythrocytes in Blood by Automated counOrdered By: Senthil Torres on 08-22-2023 WBC corrected for nucl RBC Auto (Bld) [#/Vol] 6.8 10*3/uL 3.8-11.6 [facility] Leukocytes [#/volume] in Blo od by Automated countOrdered By: Senthil Torres on 08-22-2023 WBC (Bld) [#/Vol] 6.8 10*3/uL Normal 3.8-11.6 [facility] Comment on above: Performed By: #### C UU, ADDONUAPLUS #### [facility] [address] [place] [address] [place] Lymphocytes [#/volume] in Bl ood by Automated countOrdered By: Senthil Torres on 08-22-2023 Lymphocytes (Bld) [#/Vol] 1.5 10*3/uL Normal 1.00-4.8 [facility] Comment on above: Performed By: #### C UU, ADDONUAPLUS #### [facility] [address] [place] [address] [place] Lymphocytes/100 leukocytes i n Blood by Automated countOrdered By: Senthil Torres on 08-22-2023 Lymphocytes/100 WBC (Bld) 21.9 % Normal . [facility] Comment on above: Performed By: #### C UU, ADDONUAPLUS #### [facility] [address] [place] [address] [place] MCH [Entitic mass] by Automa kenyatta countOrdered By: Senthil Torres on 08-22-2023 MCH (RBC) [Entitic mass] 28.8 pg Normal 24.7-34.3 [facility] Comment on above: Performed By: #### C JESENIA, LAYPLUS #### [facility] [address] [place] [address] MCHC Auto (RBC) [Mass/Vol]Or dered By: Senthil Torres on 08-22-2023 MCHC (RBC) [Mass/Vol] 33.0 g/dL 32.0-35.0 [facility] MCV [Entitic volume] by Auto mated countOrdered By: Senthil Torres on 08-22-2023 MCV (RBC) [Entitic vol] 87.2 fL Normal 80-100 [facility] Comment on above: Performed By: #### C JESENIA, LAYPLUS #### [facility] [address] [place] [address] Monocyte distribution width [Entitic volume] in Blood by AutomatedOrdered By: Senthil Torres on 08-22-2023 Monocyte distribution width Auto (Bld) [Entitic vol] 16.36 % 0.00-20.00 [facility] Neutrophils [#/volume] in Bl ood by Automated countOrdered By: Senthil Torres on 08-22-2023 Neutrophils (Bld) [#/Vol] 4.5 10*3/uL Normal 1.8-7.7 [facility] Comment on above: Performed By: #### C UChristopher, ADDJUSTINPLUS #### [facility] [address] [place] [address] Nitrite Test strip Ql (U)Ord ered By: AUGUSTIN LEI on 08-22-2023 Nitrite Ql (U) Negative Negative [facility] No Panel InformationOrdered By: Senthil Torres on 08-22-2023 Estimated GFR (CKD-EPI) 49.679 mL/Min [facility] Creatinine Clearance (Chem 33.43 [facility] Nucleated erythrocytes [Pres ence] in Blood by Automated countOrdered By: Senthil Torres on 08-22-2023 Nucleated RBC Auto Ql (Bld) 0.1 /100{WBC} 0-0.5 [facility] Platelet mean volume [Entiti c volume] in Blood by Automated countOrdered By: Senthil Torres on 08-22-2023 Platelet mean volume (Bld) [Entitic vol] 7.5 fL Normal 6.3-10.7 [facility] Comment on above: Performed By: #### C UU, ADDONUAPLUS #### [address] Platelets [#/volume] in Bloo d by Automated countOrdered By: Senthil Torres on 08-22-2023 Platelets (Bld) [#/Vol] 212 10*3/uL Normal 150-450 [facility] Comment on above: Performed By: #### C UU, ADDONUAPLUS #### [address] Potassium [Moles/volume] in Serum or PlasmaOrdered By: Senthil Torres on 08-22-2023 Potassium [Moles/Vol] 3.3 mmol/L Low 3.5-5.1 [facility] Comment on above: Performed By: #### C UU, ADDONUAPLUS #### [address] Protein Auto test strip (U) [Mass/Vol]Ordered By: AUGUSTIN LEI on 08-22-2023 Protein (U) [Mass/Vol] Negative Negative [facility] Protein [Mass/volume] in Ser um or PlasmaOrdered By: Senthil Torres on 08-22-2023 Protein [Mass/Vol] 6.6 g/dL Normal 6.4-8.9 [facility] Comment on above: Performed By: #### C UU, ADDONUAPLUS #### [address] Serum globulin measurement b y calculation (mass/volume)Ordered By: Senthil Torrse on 08-22-2023 Globulin (S) [Mass/Vol] 2.4 g/dL Normal [facility] Comment on above: Performed By: #### C UU, ADDONUAPLUS #### [address] Serum or plasma albumin/glob ulin mass ratioOrdered By: Senthil Torres on 08-22-2023 Albumin/Globulin [Mass ratio] 1.8 {ratio} Normal [facility] Comment on above: Performed By: #### C UU, ADDONUAPLUS #### [address] Serum or plasma anion gap de terminationOrdered By: Senthil Torres on 08-22-2023 Anion gap [Moles/Vol] 9.3 mmol/L Normal 6.0-15.0 [facility] Comment on above: Performed By: #### C UU, ADDONUAPLUS #### [address] Sodium [Moles/volume] in Ser um or PlasmaOrdered By: Senthil Torres on 08-22-2023 Sodium [Moles/Vol] 139 mmol/L Normal 136-145 [facility] Comment on above: Performed By: #### C UU, ADDONUAPLUS #### [address] Specific gravity Auto test s trip (U) [Rel density]Ordered By: PROVIDER TEMP on 08-22-2023 Specific gravity (U) [Rel density] 1.013 1.001-1.03 0 [facility] Spermatozoa detection in uri ne sediment by light microscopyOrdered By: PROVIDER TEMP on 08-22-2023 Spermatozoa LM Ql (Urine sed) N/A [facility] Squamous epithelial cells de tection in urine sediment by light microscopyOrdered By: PROVIDER TEMP on 08-22-2023 Epithelial cells.squamous LM Ql (Urine sed) 10-19 [HPF] 0-2 [facility] Troponin I High Sensitivityo n 08-22-2023 Troponin I High Sensitivity 3.4 pg/mL Normal 0.0-15.0 [facility] Comment on above: Result Comment: PERF ORMED BY: [place] [address] PATHOLOGIST COIN MACHINE MECHANIC CORIE SILVA M.D. Performed By: #### C UU, ADDONUAPLUS #### [address] [place] [address] [place] Troponin I.cardiac [Mass/vol ume] in Serum or Plasma by Detection limit <= 0.01 ng/Ordered By: Senthil Torres on 08-22-2023 Troponin I.cardiac DL <= 0.01 ng/mL [Mass/Vol] 3.4 pg/mL 0.0-15.0 [facility] Urea nitrogen [Mass/volume] in Serum or PlasmaOrdered By: Senthil Torres on 08-22-2023 Urea nitrogen [Mass/Vol] 10 mg/dL Normal 7-25 [facility] Comment on above: Performed By: #### C UU, ADDONUAPLUS #### [address] Urine Cultureon 08-22-2023 Bacteria identified Cx Nom (U) ORGANISM: Staphylococcus epidermidis (O:STAEPI) Kaycee Count >100,000 Aerobic REINALDO Charge (PCMIC38) SUSCEPTIBILITY [...] RESISTANT TO ALL B-LACTAM DRUGS. PERFORMED BY: [place] [address] PATHOLOGIST COIN MACHINE MECHANIC CORIE SILVA M.D. Normal [facility] Comment on above: Performed By: #### C UU, ADDONUAPLUS #### [place] [id number] [place] Urine bacteria detection by automated methodOrdered By: PROVIDER TEMP on 08-22-2023 Bacteria Auto Ql (U) None seen None Seen [facility] Urine clarity by refractomet ry automatedOrdered By: PROVIDER TEMP on 08-22-2023 Clarity Refractometry automated (U) Cloudy Clear [facility] Urine culture routineOrdered By: PROVIDER TEMP on 08-22-2023 Bacteria identified Cx Nom (U) Staphylococcus epidermidis [facility] Urine glucose measurement by automated test strip (mass/volume)Ordered By: PROVIDER TEMP on 08-22-2023 Glucose Auto test strip (U) [Mass/Vol] Normal mg/dL Normal [facility] Urine hemoglobin detection b y automated test stripOrdered By: PROVIDER TEMP on 08-22-2023 Hemoglobin Auto test strip Ql (U) Negative Negative [facility] Urine leukocyte esterase det ection by automated test stripOrdered By: PROVIDER TEMP on 08-22-2023 Leukocyte esterase Auto test strip Ql (U) 4+ Negative [facility] Urine pH measurement by auto mated test stripOrdered By: PROVIDER TEMP on 08-22-2023 pH (U) 6.5 [pH] Normal 5.0-9.0 [facility] Comment on above: Order Comment: Name Collection Type:: Clean-Voided Midstream Performed By: #### C UU, ADDONUAPLUS #### [facility] [address] Urobilinogen Auto test strip (U) [Mass/Vol]Ordered By: PROVIDER TEMP on 08-22-2023 Urobilinogen (U) [Mass/Vol] Normal mg/dL Normal [facility] Yeast detection in urine sed iment by light microscopyOrdered By: PROVIDER TEMP on 08-22-2023 Yeast LM Ql (Urine sed) 3+ [HPF] None Seen [facility] Consent for Treatmenton 07-25 Consent for Treatment [id number] Normal [facility] ED Clinical Summaryon 2023 ED Clinical Summary (Inserted Image. Sara ble to display) [address] [address] ED Clinical Summary Person Information Name: MAEGAN DYE/NewDarrius Age: 73 Years : 1950 Sex: Female Language: Peruvian PCP: AZUL GORMAN CNP Marital Status: Phone: [phone] Visit Id: Visit Reason: Altered mental status; [...] 08/21/2023 15:23:16 08/21/2023 15:23:16 08/21/2023 15:23:16 ADDRESS: [address] [place] [address] [address] [facility] [phone] PHYS DOC NOTES: MEDICAL INFORMATION: Prescriptions Given: [...] knee high walking Size small boot dx m21.549, m14.139 Fax to [employer] [facility]. Refills: 0. multivitamin with minerals (Therapeutic Multiple [...] EDUCATION INFORMATION: Instructions: Follow up: DIAGNOSIS: Normal [facility] ED Patient Education Noteon 08-21-2023 ED Patient Education Note Normal [facility] ED Patient Summaryon 024 ED Patient Summary (Inserted Image. Sara ble to display) [address] [address] Patient Discharge Instructions Person Information Name: MAEGAN DYE Age: 73 Years Arrival Date: 08/21/2023 15:03:11 Discharge Diagnosis: Primary Care Physician: AZUL GORMAN CNP Provider Information Primary Provider: Advanced Supervisor Boiler Repair:None The exam and treatment you received in the Emergency Department were for an urgent problem and are not intended as complete care. It is important that you follow up with a doctor, nurse practitioner, or physician?s bookkeeping assistant for ongoing care. If your symptoms [...] opioids can be used to help relieve jattlmtb-wc-uawgay pain and are often prescribed following a [...] be struggling with addiction, tell your health pet caregiver and ask for guidance or call SAMHSA?S National Helpline at 8-868-776-ODUA. v Source: [place] Department of Health and Human Services/Center for Disease Control & Prevention [facility] Medications Given: Medication Dose Route No medications found. Medication Information: Medicati (more content not included)... Normal [facility] CBC w/ Auto Diffon 4 Basophils/100 WBC (Bld) 1.1 % Normal 0.0-2.0 [facility] Comment on above: Performed By: #### 2 801402, 731109824, 3370388, 619520947, 95790572, 3741814 ####[facility] [address] [place] [address] Basophils/Leukocytes Auto (Bld) [Pure # fraction] 0.1 E9/L Normal 0.0-0.2 [facility] Comment on above: Performed By: #### 2 930732, 442925611, 1338103, 820322324, 39953361, 0370617 ####[facility] [address] [place] [address] Eosinophils (Bld) [#/Vol] 0.3 E9/L Normal 0.0-0.5 [facility] Comment on above: Performed By: #### 2 078946, 421792342, 8439570, 957002541, 02362851, 8747310 ####[facility] [address] [place] [address] Eosinophils/100 WBC (Bld) 4.9 % Normal 0.0-8.0 [facility] Comment on above: Performed By: #### 2 055533, 865707355, 4004451, 980036075, 43954063, 9287698 ####[facility] [address] [place] [address] Erythrocyte distribution width (RBC) [Ratio] 13.0 % Normal 10.9-14.2 [facility] Comment on above: Performed By: #### 2 332339, 559952145, 9088051, 208223930, 57069126, 9996683 ####[facility] [address] [place] [address] Hematocrit (Bld) [Volume fraction] 41.4 % Normal 34.0-46.0 [facility] Comment on above: Performed By: #### 2 269263, 886356595, 1310295, 450977515, 33363930, 1839414 ####[facility] [address] [place] [address] Hemoglobin (Bld) [Mass/Vol] 13.0 g/dL Normal 12.0-16.0 [facility] Comment on above: Performed By: #### 2 581960, 318150316, 3553029, 933271603, 12795782, 4767028 ####[address] [address] Lymphocytes (Bld) [#/Vol] 1.6 E9/L Normal 1.0-4.0 [facility] Comment on above: Performed By: #### 2 739651, 667181777, 9154513, 694418900, 42890145, 9377568 ####[address] [address] Lymphocytes/100 WBC (Bld) 28.3 % Normal 14.0-50.0 [facility] Comment on above: Performed By: #### 2 092693, 859507883, 7736259, 612133341, 16382750, 4337256 ####[address] [address] MCH (RBC) [Entitic mass] 28.2 pg Normal 27.0-34.0 [facility] Comment on above: Performed By: #### 2 412281, 723249673, 2184266, 500007157, 13880968, 2402846 ####[address] [address] MCHC (RBC) [Mass/Vol] 31.4 g/dL Normal 31.4-36.0 [facility] Comment on above: Performed By: #### 2 621005, 264563596, 1781069, 559013008, 37976617, 0907935 ####[address] [address] MCV (RBC) [Entitic vol] 89.7 fL Normal 80.0-100.0 [facility] Comment on above: Performed By: #### 2 442925, 141890950, 1074478, 997795869, 49218938, 9112959 ####[address] [address] Monocytes (Bld) [#/Vol] 0.3 E9/L Normal 0.2-1.0 [facility] Comment on above: Performed By: #### 2 463454, 705752460, 0033715, 888875934, 86363547, 2963248 ####[address] [address] Neutrophils (Bld) [#/Vol] 3.3 E9/L Normal 2.0-7.5 [facility] Comment on above: Performed By: #### 2 391548, 290778321, 6024774, 297346947, 39755250, 9825920 ####[address] [address] Neutrophils/100 WBC (Bld) 60.2 % Normal 36.0-75.0 [facility] Comment on above: Performed By: #### 2 638877, 510427315, 9939183, 441073185, 67266746, 8796670 ####[address] [address] Platelet 162.0 E9/L Normal 150.0-500. 0 [facility] Comment on above: Performed By: #### 2 567981, 856250855, 8038600, 876951363, 15119571, 8271062 ####[address] [address] Platelet mean volume (Bld) [Entitic vol] 8.5 fL Normal 6.4-10.8 [facility] Comment on above: Performed By: #### 2 484497, 373653080, 5023180, 591191468, 86900442, 3733117 ####[place] [address] [place] [address] RBC (Bld) [#/Vol] 4.6 E12/L Normal 4.3-5.9 [facility] Comment on above: Performed By: #### 2 191000, 746474718, 6572265, 653421759, 55455409, 2556941 ####[address] [address] [place] [address] WBC corrected for nucl RBC Auto (Bld) [#/Vol] 5.5 E9/L Normal 4.0-11.0 [facility] Comment on above: Performed By: #### 2 601780, 989112976, 4739704, 699176498, 10900130, 2915182 ####[address] [address] CMPon 08-20-2023 Albumin [Mass/Vol] 4.0 g/dL Normal 3.3-5.0 [facility] Comment on above: Performed By: #### 2 710459, 950017373, 1104260, 046597084, 37894062, 3973184 ####[address] [address] Albumin/Globulin (S) [Mass conc ratio] 1.8 Normal 1.1-2.2 [facility] Comment on above: Performed By: #### 2 781359, 306518612, 7973997, 692106426, 31906193, 4769444 ####[address] [address] [place] [address] ALP [Catalytic activity/Vol] 84 Int._Unit/L Normal 21-98 [facility] Comment on above: Performed By: #### 2 251419, 700897820, 1913596, 126690311, 21417606, 8703522 ####[address] [address] ALT No additional P-5'-P [Catalytic activity/Vol] 8 Int._Unit/L Normal 6-46 [facility] Comment on above: Performed By: #### 2 979951, 494945366, 8476187, 855316612, 14947390, 0864623 ####[facility] [address] [place] [address] Anion gap [Moles/Vol] 9 mmol/L Normal 6-16 [facility] Comment on above: Performed By: #### 2 048907, 465618561, 3304424, 660319487, 96364308, 9574816 ####[facility] [address] [place] [address] AST [Catalytic activity/Vol] 16 Int._Unit/L Normal 5-43 [facility] Comment on above: Performed By: #### 2 234070, 201312686, 2450660, 132151681, 84937864, 6215238 ####[facility] [address] [place] [address] Bilirubin [Mass/Vol] 0.5 mg/dL Normal 0.0-1.1 [facility] Comment on above: Performed By: #### 2 109319, 442210941, 3060715, 777641579, 79895118, 5214992 ####[facility] [address] [place] [address] Calcium [Mass/Vol] 9.2 mg/dL Normal 8.9-11.1 [facility] Comment on above: Performed By: #### 2 718172, 645679592, 3518089, 669423502, 64157096, 3917368 ####[facility] [address] [place] [address] Chloride [Moles/Vol] 105 mmol/L Normal 101-111 [facility] Comment on above: Performed By: #### 2 892493, 604785112, 1526201, 321234760, 01573561, 9132508 ####[facility] [address] [place] [address] CO2 [Moles/Vol] 30 mmol/L Normal 21-31 [facility] Comment on above: Performed By: #### 2 001408, 875469008, 0205808, 974218170, 23610869, 5451481 ####[facility] [address] [place] [address] Creatinine [Mass/Vol] 1.2 mg/dL Normal 0.5-1.3 [facility] Comment on above: Performed By: #### 2 884741, 964027579, 2798103, 229673687, 36264852, 6690127 ####[facility] [address] [place] [address] Globulin (S) [Mass/Vol] 2.2 g/dL Normal 1.4-4.0 [facility] Comment on above: Performed By: #### 2 890006, 340821640, 8010062, 125364016, 65122472, 8302049 ####[facility] [address] [place] [address] Glucose [Mass/Vol] 108 mg/dL Normal 55-199 [facility] Comment on above: Performed By: #### 2 493112, 567312854, 5759588, 567907674, 35298190, 7671925 ####[facility] [address] [place] [address] Potassium [Moles/Vol] 3.7 mmol/L Normal 3.5-5.3 [facility] Comment on above: Performed By: #### 2 962142, 429675031, 7065923, 867205738, 04279565, 0194283 ####[facility] [address] [place] [address] Protein [Mass/Vol] 6.2 g/dL Normal 6.0-7.8 [facility] Comment on above: Performed By: #### 2 509649, 847986763, 1118939, 372227980, 60720012, 3396247 ####[facility] [address] [place] [address] Sodium [Moles/Vol] 140 mmol/L Normal 135-145 [facility] Comment on above: Performed By: #### 2 873099, 174631149, 4502476, 565940126, 35049197, 2069188 ####[facility] [address] [place] [address] Urea nitrogen [Mass/Vol] 10 mg/dL Normal 5-21 [facility] Comment on above: Performed By: #### 2 113312, 127586608, 8042091, 345325011, 09164464, 9510909 ####[facility] [address] [place] [address] Urea nitrogen/Creatinine [Mass ratio] 8 No Units Low 10-20 [facility] Comment on above: Performed By: #### 2 980971, 577491051, 5850402, 030359620, 62268790, 7542909 ####[facility] [address] [place] [address] EbuR5lhj 08-20-2023 HbA1c (Bld) [Mass fraction] 5.5 % Normal <=5.9 [facility] Comment on above: Performed By: #### 2 005225, 299600727, 2455569, 302367181, 95927818, 4822397 ####[facility] [address] [place] [address] Vit B12on 08-20-2023 Cobalamin (Vitamin B12) [Mass/Vol] 354 pg/mL Normal 50-1500 [facility] Comment on above: Performed By: #### 2 438472, 161540870, 3027265, 496016291, 83226379, 4161226 ####[facility] [address] [place] [address] Vitamin D 25 Hydroxyon 08-19 25-hydroxyvitamin D3 [Mass/Vol] 39.9 ng/mL Normal 30.0-100.0 [facility] Comment on above: Performed By: #### 2 839269, 350448925, 1995574, 280623513, 12155608, 4071239 ####[facility] [address] [place] [address] eGFRon 08-20-2023 eGFR 47 mL/min/1.73 m2 Low >=59 [facility] Comment on above: Order Comment: Order added by Discern Expert. Performed By: #### 2 812374, 155675574, 3566330, 482507998, 01838174, 4597361 ####[facility] [address] [place] [address] Physician Orderon 08-18-2023 Physician Order [id number] Normal [facility] .UA With Cult Reflexon 08-13 Bilirubin Ql (U) Negative Normal Negative [facility] Comment on above: Performed By: #### 2 888098, 65806246 #### [facility] [address] [place] [address] Clarity (U) CLEAR Normal Clear [facility] Comment on above: Performed By: #### 2 141049, 55371542 #### [facility] [address] [place] [address] Color (U) STRAW Invalid Interpretation Code [facility] Comment on above: Performed By: #### 2 599678, 80629186 #### [facility] [address] [place] [address] Glucose Test strip (U) [Mass/Vol] Negative Normal Negative [facility] Comment on above: Performed By: #### 2 261806, 25172276 #### [facility] [address] [place] [address] Hemoglobin Ql (U) Negative Normal Negative [facility] Comment on above: Performed By: #### 2 387510, 03068344 #### [facility] [address] [place] [address] Ketones (U) [Mass/Vol] Negative Normal Negative [facility] Comment on above: Performed By: #### 2 774566, 05052906 #### [facility] [address] [place] [address] Nitrite Ql (U) Negative Normal Negative [facility] Comment on above: Performed By: #### 2 471988, 10517171 #### [facility] [address] [place] [address] pH (U) 8.0 [pH] Invalid Interpretation Code 5.0-9.0 [facility] Comment on above: Performed By: #### 2 074926, 01713883 #### [facility] [address] [place] [address] Protein (U) [Mass/Vol] Negative Normal Negative [facility] Comment on above: Performed By: #### 2 165323, 18082058 #### [facility] [address] [place] [address] Specific gravity (U) [Rel density] 1.025 Invalid Interpretation Code 1.005-1.03 0 [facility] Comment on above: Performed By: #### 2 160188, 30921426 #### [facility] [address] [place] [address] Type of Urine collection method Choi Normal [facility] Comment on above: Performed By: #### 2 004022, 77619273 #### [facility] [address] [place] [address] Urobilinogen Qn (U) 0.2 {Rolan'U}/dL Normal 0.0-1.0 [facility] Comment on above: Performed By: #### 2 554134, 05472095 #### [facility] [address] [place] [address] WBC Auto Ql (U) Negative Normal Negative [facility] Comment on above: Performed By: #### 2 971954, 30020558 #### [facility] [address] [place] [address] [place] [address] Epithelial cells.squamous LM.HPF (Urine sed) [#/Area] 0-2 Normal 0-2 [facility] Comment on above: Performed By: #### 2 503902, 65957354 #### [facility] [address] [place] [address] [place].plasma/[place] .RBC (Bld) [Mass ratio] 0-3 Normal 0-3 [facility] Comment on above: Performed By: #### 2 046981, 47852258 #### [facility] [address] [place] [address] WBC LM.HPF (Urine sed) [#/Area] 0-5 Normal 0-5 [facility] Comment on above: Performed By: #### 2 351978, 28305281 #### [facility] [address] [place] [address] BMPon 08-14-2023 Anion gap [Moles/Vol] 9 mmol/L Normal 6-16 [facility] Comment on above: Performed By: #### 1 0719279, 8811092, 9660358, 0289908 #### [facility] [address] [place] [address] Calcium [Mass/Vol] 9.2 mg/dL Normal 8.9-11.1 [facility] Comment on above: Performed By: #### 1 7314253, 5895921, 8265670, 2535067 #### [facility] [address] [place] [address] Chloride [Moles/Vol] 102 mmol/L Normal 101-111 [facility] Comment on above: Performed By: #### 1 6834115, 2113334, 5621652, 2315818 #### [facility] [address] [place] [address] CO2 [Moles/Vol] 33 mmol/L High 21-31 [facility] Comment on above: Performed By: #### 1 4415132, 2363686, 5280058, 2003639 #### [facility] [address] [place] [address] Creatinine [Mass/Vol] 1.0 mg/dL Normal 0.5-1.3 [facility] Comment on above: Performed By: #### 1 5553673, 6965649, 3483286, 0346806 #### [facility] [address] [place] [address] Glucose [Mass/Vol] 98 mg/dL Normal 55-199 [facility] Comment on above: Performed By: #### 1 0657291, 3270616, 5855916, 0972568 #### [facility] [address] [place] [address] Potassium [Moles/Vol] 3.8 mmol/L Normal 3.5-5.3 [facility] Comment on above: Performed By: #### 1 4257095, 5576200, 6291505, 0705568 #### [facility] [address] [place] [address] Sodium [Moles/Vol] 140 mmol/L Normal 135-145 [facility] Comment on above: Performed By: #### 1 6096148, 2971320, 4848025, 4870976 #### [facility] [address] [place] [address] Urea nitrogen [Mass/Vol] 10 mg/dL Normal 5-21 [facility] Comment on above: Performed By: #### 1 2992354, 6037262, 1512965, 7078678 #### [facility] [address] [place] [address] Urea nitrogen/Creatinine [Mass ratio] 10 No Units Normal 10-20 [facility] Comment on above: Performed By: #### 1 8218984, 4883930, 0987357, 0523545 #### [facility] [address] [place] [address] C Urineon 08-14-2023 Bacteria identified Cx Nom [...] Locations R1: This test was performed at: [facility], [address] [place] [address], [address] , , Normal [facility] Comment on above: Performed By: #### 2 730153, [id number] #### [facility] [address] [place] [address] CBC w/ Auto Diffon 4 Basophils/100 WBC (Bld) 0.9 % Normal 0.0-2.0 [facility] Comment on above: Performed By: #### 1 7836307, 0241456, 5386750, 5550975 #### [facility] [address] [place] [address] Basophils/Leukocytes Auto (Bld) [Pure # fraction] 0.0 E9/L Normal 0.0-0.2 [facility] Comment on above: Performed By: #### 1 8941121, 6785355, 4588159, 3969443 #### [facility] [address] [place] [address] Eosinophils (Bld) [#/Vol] 0.3 E9/L Normal 0.0-0.5 [facility] Comment on above: Performed By: #### 1 7382758, 4041972, 5916370, 2037149 #### [facility] [address] [place] [address] Eosinophils/100 WBC (Bld) 5.3 % Normal 0.0-8.0 [facility] Comment on above: Performed By: #### 1 0291780, 8722224, 2799270, 3376035 #### [facility] [address] [place] [address] Erythrocyte distribution width (RBC) [Ratio] 12.8 % Normal 10.9-14.2 [facility] Comment on above: Performed By: #### 1 4114052, 6606863, 5374026, 2166550 #### [facility] [address] [place] [address] Hematocrit (Bld) [Volume fraction] 39.8 % Normal 34.0-46.0 [facility] Comment on above: Performed By: #### 1 3217807, 8615342, 6929430, 5784390 #### [facility] [address] [place] [address] Hemoglobin (Bld) [Mass/Vol] 13.0 g/dL Normal 12.0-16.0 [facility] Comment on above: Performed By: #### 1 9310025, 3314012, 5489429, 5220242 #### [facility] [address] [place] [address] Lymphocytes (Bld) [#/Vol] 1.1 E9/L Normal 1.0-4.0 [facility] Comment on above: Performed By: #### 1 2090012, 7254570, 2060765, 8603010 #### [facility] [address] [place] [address] Lymphocytes/100 WBC (Bld) 23.2 % Normal 14.0-50.0 [facility] Comment on above: Performed By: #### 1 1675753, 7941088, 6156202, 8761146 #### [facility] [address] [place] [address] MCH (RBC) [Entitic mass] 28.4 pg Normal 27.0-34.0 [facility] Comment on above: Performed By: #### 1 4623948, 2122723, 9943612, 0511826 #### [facility] [address] [place] [address] MCHC (RBC) [Mass/Vol] 32.6 g/dL Normal 31.4-36.0 [facility] Comment on above: Performed By: #### 1 1282510, 9945030, 3724509, 3656662 #### [facility] [address] [place] [address] MCV (RBC) [Entitic vol] 87.3 fL Normal 80.0-100.0 [facility] Comment on above: Performed By: #### 1 9007605, 4104333, 7013863, 0883874 #### [facility] [address] [place] [address] Monocytes (Bld) [#/Vol] 0.4 E9/L Normal 0.2-1.0 [facility] Comment on above: Performed By: #### 1 3080518, 4589664, 9705652, 4826991 #### [facility] [address] [place] [address] Neutrophils (Bld) [#/Vol] 3.0 E9/L Normal 2.0-7.5 [facility] Comment on above: Performed By: #### 1 3940133, 7171702, 0618301, 8078176 #### [facility] [address] [place] [address] Neutrophils/100 WBC (Bld) 63.1 % Normal 36.0-75.0 [facility] Comment on above: Performed By: #### 1 8198739, 8307990, 9785335, 3457407 #### [facility] [address] [place] [address] Platelet mean volume (Bld) [Entitic vol] 7.1 fL Normal 6.4-10.8 [facility] Comment on above: Performed By: #### 1 3302137, 2406978, 1649228, 0832940 #### [facility] [address] [place] [address] Platelets (Bld) [#/Vol] 208.0 E9/L Normal 150.0-500. 0 [facility] Comment on above: Performed By: #### 1 8595627, 5177196, 2734910, 5863616 #### [facility] [address] [place] [address] RBC (Bld) [#/Vol] 4.6 E12/L Normal 4.3-5.9 [facility] Comment on above: Performed By: #### 1 9394874, 1152661, 7310200, 0416624 #### [facility] [address] [place] [address] WBC corrected for nucl RBC Auto (Bld) [#/Vol] 4.8 E9/L Normal 4.0-11.0 [facility] Comment on above: Performed By: #### 1 2364899, 8600156, 8305656, 2890493 #### [facility] [address] [place] [address] CHEMISTRYOrdered By: SYSTEM SYSTEM on 08-14-2023 Albumin [...] for Treatmenton 07-25 Consent for Treatment [id number]#1.00TIFF Normal [facility] Discharge Instructionson Discharge Instructions [id number]#1.00TIFF Normal [facility] ED Clinical Summaryon 2023 ED Clinical Summary (Inserted Image. Sara ble to display) [place] [id number] ED Clinical Summary Person Information Name: MAEGAN DYE/[facility] Age: 73 Years : 1950 Sex: Female Language: Peruvian PCP: AZUL GORMAN CNP Marital Status: Phone: [phone] Visit Id: Visit Reason: Urinary retention; DR [...] 08/14/2023 11:20:16 08/14/2023 11:20:16 08/14/2023 11:20:16 ADDRESS: [address] [facility] [id number] PHYS DOC NOTES: MEDICAL INFORMATION: Prescriptions Given: [...] 0. fluticasone nasal (fluticasone 0.05 mg/inh Nasal [place]) 2 Sprays Nasal Inhalation every day. each nostril. Refills: 5. lisinopril (lisinopril 20 mg Tab) 1 Tablets By Mouth every day. Refills: 1. Misc Prescription (Straight Catheters & Supplies) Use daily, as directed.. Refills: 5. Misc Prescription (walking boot) right foot knee high walking Size small boot dx m21.969, m14.679 Fax to [facility]. Refills: 0. multivitamin with minerals (Therapeutic Multiple [...] INFORMATION: Instructi (more content not included)... Normal [facility] ED Note-Physicianon 08-14-19 ED Note-Physician Basic Information Time Seen: Johny Willson DO 08/14/2023 09:23 Chief Complaint c/o UTI has been here 2x this week, son states [facility] sent pt over to get IV [...] reports that he called her primary at [facility] last night and left a message and [...] of inappropri (more content not included)... Normal [facility] Comment on above: Result Comment: Elec tronically [...] these instructions at home: Medicines ? Take bute-eln-kklthax and prescription medicines only as told by [...] provider. Document Revised: 12/22/2020 Document Reviewed: 12/22/2020 [employer] Patient Education ? 2022 [employer]. Normal [facility] ED Patient Summaryon 024 ED Patient Summary (Inserted Image. Sara ble to display) [place] [address] Patient Discharge Instructions Person Information Name: MAEGAN DYE Age: 73 Years Arrival Date: 08/14/2023 09:16:36 Discharge Diagnosis: Dysuria Primary Care Physician: AZUL GORMAN CNP Provider Information Primary Provider: Johny Willson DO Advanced Supervisor Boiler Repair:None The exam and treatment you received in the Emergency Department were for an urgent problem and are not intended as complete care. It is important that you follow up with a doctor, nurse practitioner, or physician?s bookkeeping assistant for ongoing care. If your symptoms [...] Instructions: With: Address: When: AZUL VITA [address] [place], [place] [address] Business (1) In 3 days 08/17/2023 Comments: [...] opioids can be used to help relieve dkbtjsqe-tr-zovuja pain and are often prescribed following a [...] visitors, childr (more content not included)... Normal [facility] HEMATOLOGYOrdered By: SYSTEM SYSTEM on 08-14-2023 Basophils/100 [...] 08-14-2023 Albumin [Mass/Vol] 3.8 g/dL Normal 3.3-5.0 [facility] Comment on above: Performed By: #### 1 7170470, 7898774, 5100076, 9569402 ####[facility] [address] [place] [address] Albumin/Globulin (S) [Mass conc ratio] 1.5 Normal 1.1-2.2 [facility] Comment on above: Performed By: #### 1 4297400, 8246346, 5457525, 9932678 ####[facility] [address] [place] [address] ALP [Catalytic activity/Vol] 79 Int._Unit/L Normal 21-98 [facility] Comment on above: Performed By: #### 1 8134762, 8406897, 9690955, 3608302 ####[place] [address] [place] [address] ALT No additional P-5'-P [Catalytic activity/Vol] 10 Int._Unit/L Normal 6-46 [facility] Comment on above: Performed By: #### 1 7129501, 0072652, 8627230, 3702620 ####[address] [address] AST [Catalytic activity/Vol] 18 Int._Unit/L Normal 5-43 [facility] Comment on above: Performed By: #### 1 3854338, 3687440, 0919896, 6447742 ####[facility] [address] [place] [address] Bilirubin [Mass/Vol] 0.5 mg/dL Normal 0.0-1.1 [facility] Comment on above: Performed By: #### 1 1143108, 7756348, 4044727, 8438129 ####[address] [address] Bilirubin.direct [Mass/Vol] 0.1 mg/dL Normal 0.0-0.4 [facility] Comment on above: Performed By: #### 1 2998852, 0485328, 3513570, 0279383 ####[place] [address] [place] [address] Bilirubin.indirect [Mass or moles/Vol] 0.4 mg/dL Normal 0.1-0.9 [facility] Comment on above: Performed By: #### 1 8497023, 6260198, 7930264, 1929083 ####[address] [address] Globulin (S) [Mass/Vol] 2.6 g/dL Normal 1.4-4.0 [facility] Comment on above: Performed By: #### 1 2231807, 2405985, 0831238, 6856079 ####[facility] [address] [place] [address] Protein [Mass/Vol] 6.4 g/dL Normal 6.0-7.8 [facility] Comment on above: Performed By: #### 1 0858459, 8784880, 4669176, 2950515 ####[facility] [address] [place] [address] UA with Cult Rflxon 08-14-19 UA Spec Desc CANCELLED Invalid Interpretation Code [facility] Comment on above: Result Comment: CANC ELLED Performed By: #### 4 [id number] ####[address] [address] Color (U) CANCELLED Invalid Interpretation Code >=0 [facility] Comment on above: Result Comment: Micr oscopic readings are only performed on those samples that meet specific criteria set forth by [facility]. Performed By: #### 4 [id number] ####[facility] [address] [place] [address] Ketones Ql (U) CANCELLED Invalid Interpretation Code [facility] Comment on above: Performed By: #### 4 [id number] ####[facility] [address] [place] [address] UA Blood CANCELLED Invalid Interpretation Code [facility] Comment on above: Performed By: #### 4 [id number] ####[facility] [address] [facility] [address] UA Bili CANCELLED Invalid Interpretation Code [facility] Comment on above: Performed By: #### 4 [id number] ####[facility] [address] [place] [address] UA Clarity CANCELLED Invalid Interpretation Code [facility] Comment on above: Performed By: #### 4 [id number] ####[facility] [address] [place] [address] UA Glucose CANCELLED Invalid Interpretation Code [facility] Comment on above: Performed By: #### 4 [id number] ####[facility] [address] [place] [address] UA Leuk Est CANCELLED Invalid Interpretation Code [facility] Comment on above: Performed By: #### 4 [id number] ####[facility] [address] [place] [address] UA Nitrite CANCELLED Invalid Interpretation Code [facility] Comment on above: Performed By: #### 4 [id number] ####[facility] [address] [place] [address] UA pH CANCELLED Invalid Interpretation Code 5.0-9.0 [facility] Comment on above: Performed By: #### 4 [id number] ####[facility] [address] [place] [address] UA Protein CANCELLED Invalid Interpretation Code [facility] Comment on above: Performed By: #### 4 [id number] ####[facility] [address] [place] [address] UA Spec Grav CANCELLED Invalid Interpretation Code 1.005-1.03 0 [facility] Comment on above: Performed By: #### 4 [id number] ####[facility] [address] [place] [address] UA Urobilinogen CANCELLED Invalid Interpretation Code [facility] Comment on above: Performed By: #### 4 [id number] ####[facility] [address] [place] [address] URINALYSISOrdered By: Lilibeth Garcia on 08-14-2023 Color (U) CANCELLED Invalid Interpretation Code >=0 [facility] [place] UA Auto SS Comment on above: Interpretive Data: M icroscopic readings are only performed on those samples that meet specific criteria set forth by [facility]. Ketones Ql (U) CANCELLED Invalid Interpretation Code [facility] [place] UA Auto SS UA Bili CANCELLED Invalid Interpretation Code [facility] [place] UA Auto SS UA Blood CANCELLED Invalid Interpretation Code [facility] UA Auto SS UA Clarity CANCELLED Invalid Interpretation Code [facility] [place] UA Auto SS UA Glucose CANCELLED Invalid Interpretation Code [facility] [place] UA Auto SS UA Leuk Est CANCELLED Invalid Interpretation Code [facility] [place] UA Auto SS UA Nitrite CANCELLED Invalid Interpretation Code [facility] UA Auto SS UA pH CANCELLED Invalid Interpretation Code 5.0 - 9.0 [facility] UA Auto SS UA Protein CANCELLED Invalid Interpretation Code [facility] [place] UA Auto SS UA Spec Grav CANCELLED Invalid Interpretation Code 1.005 - 1.030 [facility] UA Auto SS UA Urobilinogen CANCELLED Invalid Interpretation Code [facility] UA Auto SS Bilirubin Ql (U) Negative (08/14/23 10:16 AM) Normal Negative [facility] UA Auto SS Clarity (U) Clear (08/14/23 10:16 AM) Normal Clear [facility] UA Auto SS Color (U) STRAW Invalid Interpretation Code [facility] UA Auto SS Epithelial cells.squamous LM.HPF (Urine sed) [#/Area] 0-2 /HPF Normal 0-2/HPF [facility] [place] UA Auto SS Glucose Test strip (U) [Mass/Vol] Negative (08/14/23 10:16 AM) Normal Negative [facility] UA Auto SS Hemoglobin Ql (U) Negative (08/14/23 10:16 AM) Normal Negative [facility] UA Auto SS Ketones (U) [Mass/Vol] Negative (08/14/23 10:16 AM) Normal Negative [facility] UA Auto SS [place].plasma/[place] .RBC (Bld) [Mass ratio] 0-3 /HPF Normal 0-3/HPF [facility] UA Auto SS Nitrite Ql (U) Negative (08/14/23 10:16 AM) Normal Negative [facility] UA Auto SS pH (U) 8.0 *NA* (08/14/23 10:16 AM) Invalid Interpretation Code 5.0 - 9.0 [facility] [place] UA Auto SS Protein (U) [Mass/Vol] Negative (08/14/23 10:16 AM) Normal Negative [facility] UA Auto SS Specific gravity (U) [Rel density] 1.025 *NA* (08/14/23 10:16 AM) Invalid Interpretation Code 1.005 - 1.030 [facility] UA Auto SS UA Spec Desc Choi (08/14/23 10:16 AM) Normal [facility] [place] UA Auto SS Urobilinogen Qn (U) 0.2070151 {Rolan'U}/dL Normal 0.0 - 1.0 EU/dL [facility] [place] UA Auto SS WBC Auto Ql (U) Negative (08/14/23 10:16 AM) Normal Negative [facility] [place] UA Auto SS WBC LM.HPF (Urine sed) [#/Area] 0-5 /HPF Normal 0-5/HPF [facility] [place] UA Auto SS URINALYSISOrdered By: Johny Willson on 08-14-2023 UA Spec Desc CANCELLED Invalid Interpretation Code [facility] [place] UA Auto SS Work Phone: Comment on above: Result Comment: MONA MONTALVO eGFRon 08-14-2023 eGFR 59 mL/min/1.73 m2 Normal >=59 [facility] Comment on above: Order Comment: Order added by Discern Expert. Performed By: #### 1 [id number], 2659400, 8196802, 6390944 ####[facility] [address] [place] [address] Capillary Glucose POCon 07-25 Glucose [Mass/Vol] 145 mg/dL High 55-99 [facility] Comment on above: Performed By: #### 2 758339, [id number] #### [facility] [address] [place] [address] Consent for Treatmenton 07-25 Consent for Treatment [id number]#1.00TIFF Normal [facility] Discharge Instructionson Discharge Instructions [id number]#1.00TIFF Normal [facility] ED Clinical Summaryon 2023 ED Clinical Summary (Inserted Image. Sara ble to display) [address] [address] ED Clinical Summary Person Information Name: MAEGAN DYE/[facility]_Srik[facility] Age: 73 Years : 1950 Sex: Female Language: Peruvian PCP: Dolly Valenzuela CNP Marital Status: Phone: [phone] Visit Id: Visit Reason: Medical problem - [...] 08/13/2023 21:10:19 08/13/2023 21:10:19 08/13/2023 21:10:19 ADDRESS: [facility] [address] [facility] [id number] PHYS DOC NOTES: MEDICAL INFORMATION: Prescriptions Given: [...] 0. fluticasone nasal (fluticasone 0.05 mg/inh Nasal [place]) 2 Sprays Nasal Inhalation every day. each [...] EDUCATION INFORMATION: Instructions: Urinary Tract Infection, Adult, Fbph-pr-Oakq Follow up: With: Address: When: Dolly Valenzuela [address] [place] [address], [address] [place] [id number] [employer] (1) In 3 days 08/16/2023 Comments: Take the antibiotics as prescribed to complete the course. Please follow-up with your primary care doctor next 2 to 3 days for further evaluation management. Please return to ED for any new or worsening symptoms or DIAGNOSIS: Encounter for medical screening examination Normal [facility] ED Note-Physicianon 08-13-19 ED Note-Physician Basic Information Time Seen: Mati Taylor DO 08/13/2023 19:40 Chief Complaint pt. per [facility] for cath issues, here last night [...] and Complexity of Problems Differential Diagnosis: [] [facility] Data External documents reviewed: [] My [...] Valenzuela In 3 days 08/16/2023 EDT [address] [facility], [address] [place] [id number]- Business (1) Additional Instructions: Take the antibiotics as prescribed to complete the course. Please follow-up with your primary care doctor next 2 to 3 days for further evaluation management. Please return to ED for any new or worsening symptoms or Patient Education Urinary Tract Infection, Adult, Xqpe-td-Whlw Problem List/Past Medical History Ongoing Acute UTI [...] Vitamin D deficiency Historical Accidental fall Agent [place] ASTHMA Benzodiazepine withdrawal Bipolar disorder Callus of [...] Physical deconditioning (more content not included)... Normal [facility] Comment on above: Result Comment: Elec tronically [...] these instructions at home: Medicines ? Take gris-cxr-wlfnrqv and prescription medicines only as told by [...] Reviewed: 12/22/2020 Else[employer] Patient Education ? 2022 [employer] Normal [facility] ED Patient Summaryon 024 ED Patient Summary (Inserted Image. Sara ble to display) [address] [address] Patient Discharge Instructions Person Information Name: MAEGAN DYE Age: 73 Years Arrival Date: 08/13/2023 19:38:56 Discharge Diagnosis: Encounter for medical screening examination Primary Care Physician: Dolly Valenzuela CNP Provider Information Primary Provider: Mati Taylor DO Advanced Supervisor Boiler Repair:None The exam and treatment you received in the Emergency Department were for an urgent problem and are not intended as complete care. It is important that you follow up with a doctor, nurse practitioner, or physician?s bookkeeping assistant for ongoing care. If your symptoms [...] Follow-up Instructions: With: Address: When: Dolly Valenzuela [address] [place] [address], [address] , [address] [place] [address] Business (1) In 3 days 08/16/2023 Comments: [...] Patient Education Materials: Urinary Tract Infection, Adult, Hudq-za-Xrrt A MESSAGE TO ALL PATIENTS REGARDING OPIOIDS PRESCRIPTION OPIOIDS: WHAT YOU NEED TO KNOW Prescription opioids can be used to help relieve qefzfkue-uq-hcppxd pain and are often prescribed following a [...] ? Visit w (more content not included)... Normal [facility] Pre-Arrival Noteon Pre-Arrival Note Pre-Arrival Summary Name: , [facility] Current Date: 08/13/2023 19:39:25 EDT Gender: Female Date of : Age: 73 Pre-Arrival Type: EMS ETA: 08/13/2023 20:01:00 EDT Primary Care Physician: Presenting Problem: low bs Pre-Arrival User: Adriane Rodriguez RN Referring Source: Location: Completion Date/Time: 08/13/2023 19:32:00 [facility] Emergency Department Pre-Hospital Report Form _ Vital Signs: Pre-Hospital Report: Treatment in Route: Response to Treatment: Misc. Issues: Normal [facility] C Urineon 08-12-2023 Bacteria identified Cx Nom [...] Locations R1: This test was performed at: [facility], [address] [place] [address], [id number] , , [facility] Comment on above: Performed By: #### 2 [id number], [id number] #### [facility] [address] [place] [address] Consent for Treatmenton 07-24 Consent for Treatment [id number]#1.00TIFF [facility] Discharge Instructionson Discharge Instructions [id number]#1.00TIFF Normal [facility] ED Clinical Summaryon 2023 ED Clinical Summary (Inserted Image. Sara ble to display) [address] [address] ED Clinical Summary Person Information [facility]: [facility] Age[facility] 73 Years : 1950 Sex: Female Language: Peruvian PCP: Dolly Valenzuela CNP Marital Status: Phone: [phone] Visit Id: Visit Reason: Medical problem - [...] 08/12/2023 20:27:38 08/12/2023 20:27:38 08/12/2023 20:27:38 ADDRESS: [address] [facility] [id number] PHYS DOC NOTES: MEDICAL INFORMATION: Prescriptions Given: [...] 0. fluticasone nasal (fluticasone 0.05 mg/inh Nasal [place]) 2 Sprays Nasal Inhalation every day. each nostril. Refills: 5. lisinopril (lisinopril 20 mg Tab) 1 Tablets By Mouth every day. Refills: 1. Misc Prescription (Straight Catheters & Supplies) Use daily, as directed.. Refills: 5. Misc Prescription (walking boot) right foot knee high walking Size small boot dx m21.449, m14.369 Fax to Yrn. Refills: 0. multivitamin with minerals (Therapeutic Multiple [...] EDUCATION INFORMATION: Instructions: Urinary Tract Infection, Adult, Gisr-zn-Akzj Follow up: With: Address: When: Dolly Valenzuela [address] [place] [address], [address] [place] [phone] Business (1) In 3 days 08/15/2023 DIAGNOSIS: 1:Acute lower UTI (urinary tract infection) Normal [facility] ED Note-Physicianon 08-12-19 ED Note-Physician Basic Information [...] Dolly Valenzuela In 3 days 08/15/[address] [place] [address] (more content not included)... Normal [facility] Comment on above: Result Comment: Elec tronically [...] these instructions at home: Medicines ? Take xrxh-kgh-kqzrhsl and prescription medicines only as told by [...] provider. Document Revised: 12/22/2020 Document Reviewed: 12/22/2020 [employer] Patient Education ? 2022 [employer] [facility] ED Patient Summaryon 024 ED Patient Summary (Inserted Image. Sara ble to display) [address] [address] Patient Discharge Instructions Person Information Name: MAEGAN DYE Age: 73 Years Arrival Date: 08/12/2023 18:06:23 Discharge Diagnosis: 1:Acute lower UTI (urinary tract infection) Primary Care Physician: Dolly Valenzuela CNP Provider Information Primary Provider: Mati Taylor DO Advanced Supervisor Boiler Repair:None The exam and treatment you received in the Emergency Department were for an urgent problem and are not intended as complete care. It is important that you follow up with a doctor, nurse practitioner, or physician?s bookkeeping assistant for ongoing care. If your symptoms [...] Instructions: With: Address: When: Dolly Valenzuela [address] [facility] [address], [address] [place] [address] Business (1) In 3 days 08/15/2023 In the event that this physician does not participate in your insurance network, please consult with your insurance company to find a nearby participating provider. Patient Education Materials: Urinary Tract Infection, Adult, Cxxm-wh-Vhib A MESSAGE TO ALL PATIENTS REGARDING OPIOIDS PRESCRIPTION OPIOIDS: WHAT YOU NEED TO KNOW Prescription opioids can be used to help relieve anyjouze-jb-opmcte pain and are often prescribed following a [...] be struggling with addiction, tell your health pet caregiver and ask for guidance or call [facility]S National Helpline a (more content not included)... Normal [facility] Pre-Arrival Noteon Pre-Arrival Note Pre-Arrival Summary Name: [facility] Current Date: 08/12/2023 18:07:08 EDT Gender: Female Date of : Age: 73 Pre-Arrival Type: EMS ETA: 08/12/2023 18:30:00 EDT Primary Care Physician: Presenting Problem: UTI Pre-Arrival User: Mar Wilcox RN Referring Source: Location: MD Completion Date/Time: 08/12/2023 18:00:00 [facility] Emergency Department Pre-Hospital Report Form _ Vital Signs: Pre-Hospital Report: Treatment in Route: Response to Treatment: Misc. Issues: Normal [facility] UA With Cult Reflexon 2023 Bacteria LM Ql (Urine sed) TRACE Normal Trace [facility] Comment on above: Performed By: #### 2 [id number], [id number] #### [facility] [address] [place] [address] Bilirubin Ql (U) Negative Normal Negative [facility] Comment on above: Performed By: #### 2 608871, [id number] #### [facility] [address] [place] [address] Clarity (U) CLEAR Normal Clear [facility] Comment on above: Performed By: #### 2 129726, [id number] #### [facility] [address] [place] [address] Color (U) YELLOW Normal Yellow [facility] Comment on above: Performed By: #### 2 271593, [id number] #### [facility] [address] [place] [address] Epithelial cells.squamous LM.HPF (Urine sed) [#/Area] 0-2 Normal 0-2 [facility] Comment on above: Performed By: #### 2 934746, [id number] #### [facility] [address] [place] [address] Glucose Test strip (U) [Mass/Vol] Negative Normal Negative [facility] Comment on above: Performed By: #### 2 778795, [id number] #### [facility] [address] [place] [address] Hemoglobin Ql (U) Negative Normal Negative [facility] Comment on above: Performed By: #### 2 823341, [id number] #### [facility] [address] [place] [address] Ketones (U) [Mass/Vol] Negative Normal Negative [facility] Comment on above: Performed By: #### 2 540111, [id number] #### [facility] [address] [place] [address] [place].plasma/[place] .RBC (Bld) [Mass ratio] 0-3 Normal 0-3 [facility] Comment on above: Performed By: #### 2 663176, [id number] #### [facility] [address] [place] [address] Nitrite Ql (U) Negative Normal Negative [facility] Comment on above: Performed By: #### 2 685910, [id number] #### [facility] [address] [place] [address] pH (U) 8.0 [pH] Invalid Interpretation Code 5.0-9.0 [facility] Comment on above: Performed By: #### 2 501354, [id number] #### [facility] [address] [place] [address] Protein (U) [Mass/Vol] TRACE Abnormal Negative [facility] Comment on above: Performed By: #### 2 133530, [id number] #### [facility] [address] [place] [address] Specific gravity (U) [Rel density] 1.020 Invalid Interpretation Code 1.005-1.03 0 [facility] Comment on above: Performed By: #### 2 635806, [id number] #### [facility] [address] [place] [address] Type of Urine collection method Choi Normal [facility] Comment on above: Performed By: #### 2 358954, [id number] #### [facility] [address] [place] [address] Urobilinogen Qn (U) 0.2 {Rolan'U}/dL Normal 0.0-1.0 [facility] Comment on above: Performed By: #### 2 271303, [id number] #### [facility] [address] [place] [address] WBC Auto Ql (U) 1+ Abnormal Negative [facility] Comment on above: Performed By: #### 2 238265, [id number] #### [facility] [address] [place] [address] WBC LM.HPF (Urine sed) [#/Area] 6-15 Abnormal 0-5 [facility] Comment on above: Performed By: #### 2 719654, [id number] #### [facility] [address] [place] [address] URINALYSISOrdered By: Luis Trotter on 08-12-2023 Bacteria [...] PM) Normal Negative [facility] UA Auto SS [place].plasma/[place] .RBC (Bld) [Mass ratio] 0-3 /HPF Normal [...] [facility] UA Auto SS Urobilinogen Qn (U) 0.1641202 {Rolan'U}/dL Normal 0.0 - 1.0 EU/dL [facility] UA Auto SS WBC Auto Ql (U) 1+ *ABN* (08/12/23 7:41 PM) Invalid Interpretation Code Negative [facility] UA Auto SS WBC LM.HPF (Urine sed) [#/Area] 6-15 /HPF Invalid Interpretation Code 0-5/HPF [facility] UA Auto SS BMPon 08-10-2023 Anion gap [Moles/Vol] 10 mmol/L Normal 6-16 [facility] Comment on above: Performed By: #### 2 364830, [id number] #### [facility] [address] [place] [address] Calcium [Mass/Vol] 9.1 mg/dL Normal 8.9-11.1 [facility] Comment on above: Performed By: #### 2 500518, [id number] #### [facility] [address] [place] [address] Chloride [Moles/Vol] 104 mmol/L Normal 101-111 [facility] Comment on above: Performed By: #### 2 962476, [id number] #### [facility] [address] [place] [address] CO2 [Moles/Vol] 30 mmol/L Normal 21-31 [facility] Comment on above: Performed By: #### 2 890232, [id number] #### [facility] [address] [place] [address] Creatinine [Mass/Vol] 1.1 mg/dL Normal 0.5-1.3 [facility] Comment on above: Performed By: #### 2 915025, [id number] #### [facility] [address] [place] [address] Glucose [Mass/Vol] 129 mg/dL Normal 55-199 [facility] Comment on above: Performed By: #### 2 870879, [id number] #### [facility] [address] [place] [address] Potassium [Moles/Vol] 3.2 mmol/L Low 3.5-5.3 [facility] Comment on above: Performed By: #### 2 205956, [id number] #### [facility] [address] [place] [address] Sodium [Moles/Vol] 141 mmol/L Normal 135-145 [facility] Comment on above: Performed By: #### 2 626615, 66064461 #### [facility] [address] [place] [address] Urea nitrogen [Mass/Vol] 6 mg/dL Normal 5-21 [facility] Comment on above: Performed By: #### 2 978480, [id number] #### [facility] [address] [place] [address] Urea nitrogen/Creatinine [Mass ratio] 6 No Units Low 10-20 [facility] Comment on above: Performed By: #### 2 826886, [id number] #### [facility] [address] [place] [address] C Urineon 08-10-2023 Bacteria identified Cx Nom [...] Locations R1: This test was performed at: [facility], [address] [place] [address], [address] , , [facility] Comment on above: Performed By: #### 2 739130, [id number] #### [facility] [address] [place] [address] Discharge Instructionson Discharge Instructions [id number] [facility] ED Clinical Summaryon 2023 ED Clinical Summary (Inserted Image. Sara ble to display) [address] [address] ED Clinical Summary Person Information Name: MAEGAN DYE/[facility] Age: 73 Years : 1950 Sex: Female Language: Peruvian PCP: Dolly Valenzuela CNP Marital Status: Phone: [phone] Visit Id: Visit Reason: Medical problem reevaluation; [...] 08/10/2023 00:55:01 08/10/2023 00:55:01 08/10/2023 00:55:01 ADDRESS: [address] [facility] [id number] PHYS DOC NOTES: MEDICAL INFORMATION: Prescriptions Given: New Medications [id number], [address] [place] [phone], [phone] cephalexin (Keflex 500 mg Cap) 1 Capsules [...] 0. fluticasone nasal (fluticasone 0.05 mg/inh Nasal [place]) 2 Sprays Nasal Inhalation every day. each nostril. Refills: 5. lisinopril (lisinopril 20 mg Tab) 1 Tablets By Mouth every day. Refills: 1. Misc Prescription (Straight Catheters & Supplies) Use daily, as directed.. Refills: 5. Misc Prescription (walking boot) right foot knee high walking Size small boot dx m21.969, m14.679 Fax to Yrn. Refills: 0. multivitamin with minerals (Therapeutic Multiple [...] Adult Follow up: With: Address: When: Dolly Nicolas [address] [place] [address], [address] [place] [phone] [facility] (1) In 3 days DIAGNOSIS: Acute UTI Normal [facility] ED Note-Physicianon 08-10-19 ED Note-Physician Basic Information Time Seen: Santiago Harrington DO 08/09/2023 22:56 History of Present Illness HPI: [...] and Complexity of Problems Differential Diagnosis: [] [facility] Data External documents reviewed: N/A My [...] day(s), # 14 cap(s), Refills(s) 0, Pharmacy: [id number], 155, cm, 08/09/23 23:21:00 EDT, Height/Length [...] q12hr Follow-up With When Contact Information Dolly Nicolas In 3 days [address] [facility], [address] [place] [address]- Business (1) Additional Instructions: Patient Education Urinary [...] Vitamin D deficiency Historical Accidental fall Agent [place] ASTHMA Benzodiazepine withdrawal Bipolar disorder Callus of [...] bipolar hemiart (more content not included)... Normal [facility] Comment on above: Result Comment: Elec tronically [...] this condition includes: ? Antibiotic medicine. ? Bqfo-tul-iqrwgao medicines to treat discomfort. ? Drinking enough [...] these instructions at home: Medicines ? Take xzbw-rni-orwtblq and prescription medicines only as told by [...] Document Revie (more content not included)... Normal [facility] ED Patient Summaryon 024 ED Patient Summary (Inserted Image. Sara ble to display) [address] [address] Patient Discharge Instructions Person Information Name: MAEGAN DYE Age: 73 Years Arrival Date: 08/09/2023 22:55:25 Discharge Diagnosis: Acute UTI Primary Care Physician: Dolly Valenzuela CNP Provider Information Primary Provider: Santiago Harrington DO Advanced Supervisor Boiler Repair:None The exam and treatment you received in the Emergency Department were for an urgent problem and are not intended as complete care. It is important that you follow up with a doctor, nurse practitioner, or physician?s bookkeeping assistant for ongoing care. If your symptoms [...] Instructions: With: Address: When: Dolly Valenzuela [address] [facility] [address] , [address] [place] [address] Business (1) In 3 days In the event that this physician does not participate in your insurance network, please consult with your insurance company to find a nearby participating provider. Patient Education Materials: Urinary Tract Infection, Adult A MESSAGE TO ALL PATIENTS REGARDING OPIOIDS PRESCRIPTION OPIOIDS: WHAT YOU NEED TO KNOW Prescription opioids can be used to help relieve jrynxrul-jr-icndmt pain and are often prescribed following a [...] be struggling with addiction, tell your health pet caregiver and ask for guidance or call [facility]S National Helpline at [phone]-NKBA. p Source: [place] Department of Health (more content not included)... Normal [facility] Hep Func Panelon 08-10-2023 Albumin [Mass/Vol] 4.3 g/dL Normal 3.3-5.0 [facility] Comment on above: Performed By: #### 2 970726, [id number] #### [facility] [address] [place] [address] Albumin/Globulin (S) [Mass conc ratio] 2.0 Normal 1.1-2.2 [facility] Comment on above: Performed By: #### 2 781710, [id number] #### [facility] [address] [place] [address] ALP [Catalytic activity/Vol] 93 Int._Unit/L Normal 21-98 [facility] Comment on above: Performed By: #### 2 138833, [id number] #### [facility] [address] [place] [address] ALT No additional P-5'-P [Catalytic activity/Vol] 12 Int._Unit/L Normal 6-46 [facility] Comment on above: Performed By: #### 2 417967, [id number] #### [facility] [address] [place] [address] AST [Catalytic activity/Vol] 25 Int._Unit/L Normal 5-43 [facility] Comment on above: Performed By: #### 2 643141, [id number] #### [facility] [address] [place] [address] Bilirubin [Mass/Vol] 0.3 mg/dL Normal 0.0-1.1 [facility] Comment on above: Performed By: #### 2 647101, 93070031 #### [facility] [address] [place] [address] Bilirubin.direct [Mass/Vol] 0.1 mg/dL Normal 0.0-0.4 [facility] Comment on above: Performed By: #### 2 926917, [id number] #### [facility] [address] [place] [address] Bilirubin.indirect [Mass or moles/Vol] 0.2 mg/dL Normal 0.1-0.9 [facility] Comment on above: Performed By: #### 2 312037, [id number] #### [facility] [address] [place] [address] Globulin (S) [Mass/Vol] 2.2 g/dL Normal 1.4-4.0 [facility] Comment on above: Performed By: #### 2 103710, [id number] #### [facility] [address] [place] [address] Protein [Mass/Vol] 6.5 g/dL Normal 6.0-7.8 [facility] Comment on above: Performed By: #### 2 066117, [id number] #### [facility] [address] [place] [address] Lipase Levelon 08-10-2023 Lipase [Catalytic activity/Vol] 12 U/L Low 13-58 [facility] Comment on above: Performed By: #### 2 168903, [id number] #### [facility] [address] [place] [address] UA With Cult Reflexon 2023 Bacteria LM Ql (Urine sed) TRACE Normal Trace [facility] Comment on above: Performed By: #### 2 515692, [id number] #### [facility] [address] [place] [address] Bilirubin Ql (U) Negative Normal Negative [facility] Comment on above: Performed By: #### 2 460207, [id number] #### [facility] [address] [place] [address] Clarity (U) SL CLOUDY Invalid Interpretation Code [facility] Comment on above: Performed By: #### 2 100754, [id number] #### [facility] [address] [place] [address] Color (U) STRAW Invalid Interpretation Code [facility] Comment on above: Performed By: #### 2 227640, [id number] #### [facility] [address] [place] [address] Epithelial cells.squamous LM.HPF (Urine sed) [#/Area] 5-8 Normal 0-2 [facility] Comment on above: Performed By: #### 2 653355, [id number] #### [facility] [address] [place] [address] Glucose Test strip (U) [Mass/Vol] Negative Normal Negative [facility] Comment on above: Performed By: #### 2 523728, [id number] #### [facility] [address] [place] [address] Hemoglobin Ql (U) TRACE Abnormal Negative [facility] Comment on above: Performed By: #### 2 799843, [id number] #### [facility] [address] [place] [address] Ketones (U) [Mass/Vol] Negative Normal Negative [facility] Comment on above: Performed By: #### 2 827160, [id number] #### [facility] [address] [place] [address] [place].plasma/[place] .RBC (Bld) [Mass ratio] 4-20 Normal 0-3 [facility] Comment on above: Performed By: #### 2 814430, 65535970 #### [facility] [address] [place] [address] Nitrite Ql (U) Negative Normal Negative [facility] Comment on above: Performed By: #### 2 441454, [id number] #### [facility] [address] [place] [address] pH (U) 6.0 [pH] Invalid Interpretation Code 5.0-9.0 [facility] Comment on above: Performed By: #### 2 283509, [id number] #### [facility] [address] [place] [address] Protein (U) [Mass/Vol] Negative Normal Negative [facility] Comment on above: Performed By: #### 2 972949, [id number] #### [facility] [address] [place] [address] Specific gravity (U) [Rel density] 1.015 Invalid Interpretation Code 1.005-1.03 0 [facility] Comment on above: Performed By: #### 2 895079, 99284113 #### [facility] [address] [place] [address] Type of Urine collection method Clean Catch Normal [facility] Comment on above: Performed By: #### 2 895339, [id number] #### [facility] [address] [place] [address] Urobilinogen Qn (U) 0.2 {Rolan'U}/dL Normal 0.0-1.0 [facility] Comment on above: Performed By: #### 2 064075, [id number] #### [facility] [address] [place] [address] WBC Auto Ql (U) 3+ Abnormal Negative [facility] Comment on above: Performed By: #### 2 464376, [id number] #### [facility] [address] [place] [address] WBC LM.HPF (Urine sed) [#/Area] 6-15 Abnormal 0-5 [facility] Comment on above: Performed By: #### 2 508349, [id number] #### [facility] [address] [place] [address] URINALYSISOrdered By: Leilani Galloway on 08-10-2023 Bacteria LM Ql (Urine sed) Trace /HPF Normal Trace/HPF [facility] UA Auto SS Bilirubin Ql (U) Negative (08/10/23 12:03 AM) Normal Negative [facility] UA Auto SS Clarity (U) SL CLOUDY Invalid Interpretation Code [facility] UA Auto SS Color (U) STRAW Invalid Interpretation Code [facility] UA Auto SS Epithelial cells.squamous LM.HPF (Urine sed) [#/Area] 5-8 /HPF Normal 0-2/HPF [facility] [place] [place] UA Auto SS Glucose Test strip (U) [Mass/Vol] Negative (08/10/23 12:03 AM) Normal Negative [facility] UA Auto SS Hemoglobin Ql (U) Trace *ABN* (08/10/23 12:03 AM) Invalid Interpretation Code Negative [facility] UA Auto SS Ketones (U) [Mass/Vol] Negative (08/10/23 12:03 AM) Normal Negative [facility] UA Auto SS [place].plasma/[place] .RBC (Bld) [Mass ratio] 4-20 /HPF Normal 0-3/HPF [facility] UA Auto SS Nitrite Ql (U) Negative (08/10/23 12:03 AM) Normal Negative [facility] UA Auto SS pH (U) 6.0 *NA* (08/10/23 12:03 AM) Invalid Interpretation Code 5.0 - 9.0 [facility] [place] [place] UA Auto SS Protein (U) [Mass/Vol] Negative (08/10/23 12:03 AM) Normal Negative [facility] UA Auto SS Specific gravity (U) [Rel density] 1.015 *NA* (08/10/23 12:03 AM) Invalid Interpretation Code 1.005 - 1.030 [facility] [place] [place] UA Auto SS UA Spec Desc Clean Catch (08/10/23 12:03 AM) Normal [facility] [place] [place] UA Auto SS Urobilinogen Qn (U) 0.0043561 {Rolan'U}/dL Normal 0.0 - 1.0 EU/dL [facility] UA Auto SS WBC Auto Ql (U) 3+ *ABN* (08/10/23 12:03 AM) Invalid Interpretation Code Negative [facility] [place] [place] UA Auto SS WBC LM.HPF (Urine sed) [#/Area] 6-15 /HPF Invalid Interpretation Code 0-5/HPF [facility] UA Auto SS eGFRon 08-10-2023 eGFR 52 mL/min/1.73 m2 Low >=59 [facility] Comment on above: Order Comment: Order added by Discern Expert. Performed By: #### 4 [id number], [id number] #### [facility] [address] [place] [address] CBC w/ Auto Diffon 4 Basophils/100 WBC (Bld) 0.6 % Normal 0.0-2.0 [facility] Comment on above: Performed By: #### 2 492511, [id number] #### [facility] [address] [place] [address] Basophils/Leukocytes Auto (Bld) [Pure # fraction] 0.0 E9/L Normal 0.0-0.2 [facility] Comment on above: Performed By: #### 2 740134, [id number] #### [facility] [address] [place] [address] Eosinophils (Bld) [#/Vol] 0.2 E9/L Normal 0.0-0.5 [facility] Comment on above: Performed By: #### 2 211186, [id number] #### [facility] [address] [place] [address] Eosinophils/100 WBC (Bld) 3.2 % Normal 0.0-8.0 [facility] Comment on above: Performed By: #### 2 273007, [id number] #### [facility] [address] [place] [address] Erythrocyte distribution width (RBC) [Ratio] 12.8 % Normal 10.9-14.2 [facility] Comment on above: Performed By: #### 2 165318, [id number] #### [facility] [address] [place] [address] Hematocrit (Bld) [Volume fraction] 39.1 % Normal 34.0-46.0 [facility] Comment on above: Performed By: #### 2 616823, [id number] #### [facility] [address] [place] [address] Hemoglobin (Bld) [Mass/Vol] 12.6 g/dL Normal 12.0-16.0 [facility] Comment on above: Performed By: #### 2 371425, [id number] #### [facility] [address] [place] [address] Lymphocytes (Bld) [#/Vol] 1.5 E9/L Normal 1.0-4.0 [facility] Comment on above: Performed By: #### 2 262723, [id number] #### [facility] [address] [place] [address] Lymphocytes/100 WBC (Bld) 22.7 % Normal 14.0-50.0 [facility] Comment on above: Performed By: #### 2 875769, [id number] #### [facility] [address] [place] [address] MCH (RBC) [Entitic mass] 28.5 pg Normal 27.0-34.0 [facility] Comment on above: Performed By: #### 2 344383, [id number] #### [facility] [address] [place] [address] MCHC (RBC) [Mass/Vol] 32.3 g/dL Normal 31.4-36.0 [facility] Comment on above: Performed By: #### 2 507699, [id number] #### [facility] [address] [place] [address] MCV (RBC) [Entitic vol] 88.4 fL Normal 80.0-100.0 [facility] Comment on above: Performed By: #### 2 154142, [id number] #### [facility] [address] [place] [address] Monocytes (Bld) [#/Vol] 0.6 E9/L Normal 0.2-1.0 [facility] Comment on above: Performed By: #### 2 [id number], [id number] #### [facility] [address] [place] [address] Neutrophils (Bld) [#/Vol] 4.2 E9/L Normal 2.0-7.5 [facility] Comment on above: Performed By: #### 2 [id number], [id number] #### [facility] [address] [place] [address] Neutrophils/100 WBC (Bld) 64.8 % Normal 36.0-75.0 [facility] Comment on above: Performed By: #### 2 554823, [id number] #### [facility] [address] [place] [address] Platelet mean volume (Bld) [Entitic vol] 7.2 fL Normal 6.4-10.8 [facility] Comment on above: Performed By: #### 2 379778, [id number] #### [facility] [address] [place] [address] Platelets (Bld) [#/Vol] 222.0 E9/L Normal 150.0-500. 0 [facility] Comment on above: Performed By: #### 2 198589, [id number] #### [facility] [address] [place] [address] RBC (Bld) [#/Vol] 4.4 E12/L Normal 4.3-5.9 [facility] Comment on above: Performed By: #### 2 372983, [id number] #### [facility] [address] [place] [address] WBC corrected for nucl RBC Auto (Bld) [#/Vol] 6.4 E9/L Normal 4.0-11.0 [facility] Comment on above: Performed By: #### 2 391430, [id number] #### [facility] [address] [place] [address] CHEMISTRYOrdered By: SYSTEM SYSTEM on 08-09-2023 Albumin [...] for Treatmenton 07-24 Consent for Treatment [id number] Normal [facility] HEMATOLOGYOrdered By: SYSTEM SYSTEM on 08-09-2023 Basophils/100 [...] Pre-Arrival Noteon Pre-Arrival Note Pre-Arrival Summary Name: NICK, Current Date: 08/09/2023 22:55:53 EDT Gender: Date of : Age: Pre-Arrival Type: EMS ETA: 08/09/2023 23:13:00 EDT Primary Care Physician: Presenting Problem: Catheter issue Pre-Arrival User: Nicole Arellano RN Referring Source: Location: MD Completion Date/Time: 08/09/2023 22:43:00 [facility] Emergency Department Pre-Hospital Report Form _ Vital Signs: Pre-Hospital Report: Pt. here on for complications with urinary catheter and DC'd from ED. Same problem this evening. VS stable. Treatment in Route: Response to Treatment: Misc. Issues: Normal [facility] ED Note-Physicianon 08-08-19 ED Note-Physician Basic Information Time Seen: Sadaf BYRD, Deborah Granado 08/07/2023 15:18 Chief Complaint pt self caths, [...] Valenzuela In 3 days 08/10/2023 EDT [address] [facility], [address] [place] [address] Business (1) Additional Instructions: Patient Education Indwelling Urinary Catheter Care, Adult Acute Urinary Retention, Female, Zeqw-mr-Fomx Attestation I performed a substantive part of [...] Chronic obstructive pulmo (more content not included)... [facility] Comment on above: Result Comment: Elec tronically Signed By: Deborah Talavera PA-C\.br\Date and Time Signed: 08/08/23 00:49 EDT\.br\Electronically Co-Signed By: Didier Hooks M.D.\.br\Date and Time Co-Signed: 08/08/23 07:11 EDT Consent for Treatmenton 07-24 Consent for Treatment [id number]#[id number] [facility] Discharge Instructionson Discharge Instructions [id number]#[id number] Normal [facility] ED Clinical Summaryon 2023 ED Clinical Summary (Inserted Image. Sara ble to display) [address] [address] ED Clinical Summary Person Information Name: MAEGAN DYE/New_Srikanth Age: 73 Years : 1950 Sex: Female Language: Peruvian PCP: Dolly Valenzuela CNP Marital Status: Phone: [phone] Visit Id: Visit Reason: Urinary retention; URINARY [...] 08/07/2023 17:34:59 08/07/2023 17:34:59 08/07/2023 17:34:59 ADDRESS: [facility] [address] [facility] [id number] PHYS DOC NOTES: MEDICAL INFORMATION: Prescriptions Given: [...] 0. fluticasone nasal (fluticasone 0.05 mg/inh Nasal [place]) 2 Sprays Nasal Inhalation every day. each nostril. Refills: 5. lisinopril (lisinopril 20 mg Tab) 1 Tablets By Mouth every day. Refills: 1. Misc Prescription (Straight Catheters & Supplies) Use daily, as directed.. Refills: 5. Misc Prescription (walking boot) right foot knee high walking Size small boot dx m21.245, m14.642 Fax to [email or web address]. Refills: 0. multivitamin with minerals (Therapeutic Multiple [...] Catheter Care, Adult; Acute Urinary Retention, Female, Jqlw-ue-Zwid Follow up: With: Address: When: Dolly Valenzuela [address] [place] [address], [facility], [address] [place], [place] [phone] Business (1) In 3 days 08/10/2023 DIAGNOSIS: 1:Acute urinary retention; 2:Acute on chronic urinary retention Normal [facility] ED Patient Education Noteon 08-07-2023 ED Patient [...] these instructions at home: Medicines ? Take nafp-ruo-faupptc and prescription medicines only as told by [...] provider. Document Revised: 01/31/2021 Document Reviewed: 01/31/2021 [employer] Patient Education ? 2022 [employer] Urology Indwelling Urinary Catheter Care, Adult An [...] underneath clothi (more content not included)... Normal [facility] ED Patient Summaryon 024 ED Patient Summary (Inserted Image. Sara ble to display) [address] [address] Patient Discharge Instructions Person Information Name: MAEGAN DYE Age: 73 Years Arrival Date: 08/07/2023 15:03:56 Discharge Diagnosis: 1:Acute urinary retention; 2:Acute on chronic urinary retention Primary Care Physician: Dolly Valenzuela CNP Provider Information Primary Provider: Didier Hooks M.D. Advanced Supervisor Boiler Repair:None The exam and treatment you received in the Emergency Department were for an urgent problem and are not intended as complete care. It is important that you follow up with a doctor, nurse practitioner, or physician?s bookkeeping assistant for ongoing care. If your symptoms [...] Follow-up Instructions: With: Address: When: Dolly Valenzuela [address] [place] [address], [facility], [address] [place] [address] Business (1) In 3 days 08/10/2023 In the event that this physician does not participate in your insurance network, please consult with your insurance company to find a nearby participating provider. Patient Education Materials: Indwelling Urinary Catheter Care, Adult; Acute Urinary Retention, Female, Nbuj-zi-Rchm A MESSAGE TO ALL PATIENTS REGARDING OPIOIDS PRESCRIPTION OPIOIDS: WHAT YOU NEED TO KNOW Prescription opioids can be used to help relieve hfxbtkqv-zi-avuxti pain and are often prescribed following a [...] care profes (more content not included)... Normal [facility] UA With Cult Reflexon 2023 Bacteria LM Ql (Urine sed) 2+ /HPF Abnormal Trace [facility] Comment on above: Order Comment: Urina ry Catheter Insertion triggered Urinalysis With Culture Reflex order by discern. Performed By: #### 2 187411, [id number] #### [facility] [address] [place] [address] Bilirubin Ql (U) Negative Normal Negative [facility] Comment on above: Order Comment: Urina ry Catheter Insertion triggered Urinalysis With Culture Reflex order by discern. Performed By: #### 2 190274, [id number] #### [facility] [address] [place] [address] Clarity (U) SL CLOUDY Invalid Interpretation Code [facility] Comment on above: Order Comment: Urina ry Catheter Insertion triggered Urinalysis With Culture Reflex order by discern. Performed By: #### 2 475768, [id number] #### [facility] [address] [place] [address] Color (U) YELLOW Normal Yellow [facility] Comment on above: Order Comment: Urina ry Catheter Insertion triggered Urinalysis With Culture Reflex order by discern. Performed By: #### 2 494999, [id number] #### [facility] [address] [place] [address] Epithelial cells.squamous LM.HPF (Urine sed) [#/Area] 0-2 Normal 0-2 [facility] Comment on above: Order Comment: Urina ry Catheter Insertion triggered Urinalysis With Culture Reflex order by discern. Performed By: #### 2 867537, [id number] #### [facility] [address] [place] [address] Glucose Test strip (U) [Mass/Vol] Negative Normal Negative [facility] Comment on above: Order Comment: Urina ry Catheter Insertion triggered Urinalysis With Culture Reflex order by discern. Performed By: #### 2 124938, [id number] #### [facility] [address] [place] [address] Hemoglobin Ql (U) Negative Normal Negative [facility] Comment on above: Order Comment: Urina ry Catheter Insertion triggered Urinalysis With Culture Reflex order by discern. Performed By: #### 2 066925, [id number] #### [facility] [address] [place] [address] Ketones (U) [Mass/Vol] Negative Normal Negative [facility] Comment on above: Order Comment: Urina ry Catheter Insertion triggered Urinalysis With Culture Reflex order by discern. Performed By: #### 2 579929, [id number] #### [facility] [address] [place] [address] [place].plasma/[place] .RBC (Bld) [Mass ratio] 0-3 Normal 0-3 [facility] Comment on above: Order Comment: Urina ry Catheter Insertion triggered Urinalysis With Culture Reflex order by discern. Performed By: #### 2 332513, [id number] #### [facility] [address] [place] [address] Mucus Ql (Urine sed) 1+ Normal [facility] Comment on above: Order Comment: Urina ry Catheter Insertion triggered Urinalysis With Culture Reflex order by discern. Performed By: #### 2 413276, [id number] #### [facility] [address] [place] [address] Nitrite Ql (U) Negative Normal Negative [facility] Comment on above: Order Comment: Urina ry Catheter Insertion triggered Urinalysis With Culture Reflex order by discern. Performed By: #### 2 556211, [id number] #### [facility] [address] [place] [address] pH (U) 7.5 [pH] Invalid Interpretation Code 5.0-9.0 [facility] Comment on above: Order Comment: Urina ry Catheter Insertion triggered Urinalysis With Culture Reflex order by discern. Performed By: #### 2 544734, [id number] #### [facility] [address] [place] [address] Protein (U) [Mass/Vol] Negative Normal Negative [facility] Comment on above: Order Comment: Urina ry Catheter Insertion triggered Urinalysis With Culture Reflex order by discern. Performed By: #### 2 495630, [id number] #### [facility] [address] [place], [place] [address] Specific gravity (U) [Rel density] 1.010 Invalid Interpretation Code 1.005-1.03 0 [facility] Comment on above: Order Comment: Urina ry Catheter Insertion triggered Urinalysis With Culture Reflex order by discern. Performed By: #### 2 053816, [id number] #### [facility] [address] [place] [address] Type of Urine collection method Clean Catch Normal [facility] Comment on above: Order Comment: Urina ry Catheter Insertion triggered Urinalysis With Culture Reflex order by discern. Performed By: #### 2 629652, [id number] #### [facility] [address] [place], [place] [address] Urobilinogen Qn (U) 0.2 {Rolan'U}/dL Normal 0.0-1.0 [facility] Comment on above: Order Comment: Urina ry Catheter Insertion triggered Urinalysis With Culture Reflex order by discern. Performed By: #### 2 322169, [id number] #### [facility] [address] [place] [address] WBC Auto Ql (U) 3+ Abnormal Negative [facility] Comment on above: Order Comment: Urina ry Catheter Insertion triggered Urinalysis With Culture Reflex order by discern. Performed By: #### 2 394796, [id number] #### [facility] [address] [place] [address] WBC LM.HPF (Urine sed) [#/Area] 6-15 Abnormal 0-5 [facility] Comment on above: Order Comment: Urina ry Catheter Insertion triggered Urinalysis With Culture Reflex order by discern. Performed By: #### 2 504386, [id number] #### [facility] [address] [place] [address] URINALYSISOrdered By: Chelsy Lujan on 08-07-2023 Bacteria [...] PM) Normal Negative [facility] UA Auto SS [place].plasma/[place] .RBC (Bld) [Mass ratio] 0-3 /HPF Normal 0-3/HPF [facility] UA Auto SS Mucus Ql (Urine sed) 1+ (08/07/23 3:48 PM) Normal [facility] UA Auto SS Nitrite Ql (U) Negative (08/07/23 3:48 PM) Normal Negative [facility] UA Auto SS pH (U) 7.5 *NA* (08/07/23 3:48 PM) Invalid Interpretation Code 5.0 - 9.0 [facility] [place] [place] UA Auto SS Protein (U) [Mass/Vol] Negative (08/07/23 3:48 PM) Normal Negative [facility] UA Auto SS Specific gravity (U) [Rel density] 1.010 *NA* (08/07/23 3:48 PM) Invalid Interpretation Code 1.005 - 1.030 [facility] UA Auto SS UA Spec Desc Clean Catch (08/07/23 3:48 PM) Normal [facility] [place] [place] UA Auto SS Urobilinogen Qn (U) 0.1724902 {Rolan'U}/dL Normal 0.0 - 1.0 EU/dL [facility] UA Auto SS WBC Auto Ql (U) 3+ *ABN* (08/07/23 3:48 PM) Invalid Interpretation Code Negative [facility] UA Auto SS WBC LM.HPF (Urine sed) [#/Area] 6-15 /HPF Invalid Interpretation Code 0-5/HPF [facility] UA Auto SS Activated partial thrombopla stin time (aPTT) in platelet poor plasma by coagulation aOrdered By: Bebe rOtiz on 07-05-2023 aPTT Coag (PPP) [Time] 31.4 s 25.1-36.5 [facility] Comment on above: A hematocrit value g reater than 55% may lead to inaccurate results in coagulation testing. Patients having hematocrit values >55% require a special collection tube for coagulation studies. Please contact the laboratory at [phone] for redraw instructions. Alanine aminotransferase [En zymatic activity/volume] in Serum or PlasmaOrdered By: Bebe Ortiz on 07-05-2023 ALT [Catalytic activity/Vol] 8 U/L Normal 7-52 [facility] Comment on above: Performed By: #### C MP, PT, CBC, PTT, HS TROP #### [address] Albumin [Mass/volume] in Ser um or Plasma by Bromocresol green (BCG) dye binding methoOrdered By: Bebe Ortiz on 07-05-2023 Albumin BCG dye [Mass/Vol] 4.4 g/dL 3.5-5.7 [facility] Alkaline phosphatase [Enzyma tic activity/volume] in Serum or PlasmaOrdered By: Bebe Ortiz on 07-05-2023 ALP [Catalytic activity/Vol] 96 U/L Normal 34-104 [facility] Comment on above: Performed By: #### C MP, PT, CBC, PTT, HS TROP #### [address] Amphetamine Screen Ql (U)Ord ered By: Bebe Ortiz on 07-05-2023 Amphetamines Ql (U) Negative Negative [facility] Aspartate aminotransferase [ Enzymatic activity/volume] in Serum or PlasmaOrdered By: Bebe Ortiz on 07-05-2023 AST [Catalytic activity/Vol] 17 U/L Normal 13-39 [facility] Comment on above: Performed By: #### C MP, PT, CBC, PTT, HS TROP #### [address] Automated basophil %Ordered By: Bebe Ortiz on 07-05-2023 Basophils/100 WBC (Bld) 0.7 % Normal . [facility] Comment on above: Performed By: #### C MP, PT, CBC, PTT, HS TROP #### [address] Automated basophil countOrde red By: Bebe Ortiz on 07-05-2023 Basophils (Bld) [#/Vol] 0.1 10*3/uL Normal 0.0-0.2 [facility] Comment on above: Result Comment: PERF ORMED BY: [place] [address] PATHOLOGIST COIN MACHINE MECHANIC CORIE SILVA M.D. Performed By: #### C MP, PT, CBC, PTT, HS TROP #### [address] Automated blood monocyte cou ntOrdered By: Bebe Ortiz on 07-05-2023 Monocytes (Bld) [#/Vol] 0.7 10*3/uL Normal 0.0-0.8 [facility] Comment on above: Performed By: #### C MP, PT, CBC, PTT, HS TROP #### [facility] [address] Automated eosinophil %Ordere d By: Bebe Albernguyen on 07-05-2023 Eosinophils/100 WBC (Bld) 2.1 % Normal . [facility] Comment on above: Performed By: #### C MP, PT, CBC, PTT, HS TROP #### [facility] [address] Automated eosinophil countOr dered By: Bebe Albernguyen on 07-05-2023 Eosinophils (Bld) [#/Vol] 0.2 10*3/uL Normal 0.0-0.45 [facility] Comment on above: Performed By: #### C MP, PT, CBC, PTT, HS TROP #### [address] Automated erythrocytes count in urine sediment (number/area)Ordered By: Bebe Albernguyen on 07-05-2023 RBC Auto (Urine sed) [#/Area] 5-9 [HPF] 0-4 [facility] Automated leukocytes count i n urine sediment (number/area)Ordered By: Bebe Albernguyen on 07-05-2023 WBC Auto (Urine sed) [#/Area] 50-100 [HPF] 0-4 [facility] Automated monocyte %Ordered By: Bebe Albernguyen on 07-05-2023 Monocytes/100 WBC (Bld) 9.0 % Normal . [facility] Comment on above: Performed By: #### C MP, PT, CBC, PTT, HS TROP #### [facility] [address] Automated neutrophil %Ordere d By: Bebe Albernguyen on 07-05-2023 Neutrophils/100 WBC (Bld) 68.6 % Normal . [facility] Comment on above: Performed By: #### C MP, PT, CBC, PTT, HS TROP #### [facility] [address] [place] [address] Automated urine color determ inationOrdered By: Bebe Ortiz on 07-05-2023 Color (U) Yellow Normal Yellow [facility] Comment on above: Order Comment: Name Collection Type:: Clean-Voided Midstream Performed By: #### C UU, ADDONUAPLUS #### [facility] [address] [place] [address] Barbiturates [Presence] in U rine by Screen methodOrdered By: Bebe Ortiz on 07-05-2023 Barbiturates Screen Ql (U) Negative Negative [facility] Benzodiazepines Screen Ql (U )Ordered By: Bebe Ortiz on 07-05-2023 Benzodiazepines Ql (U) Negative Negative [facility] Benzoylecgonine [Presence] i n Urine by Screen methodOrdered By: Bebe Ortiz on 07-05-2023 Benzoylecgonine Screen Ql (U) Negative Negative [facility] Bilirubin Test strip Ql (U)O rdered By: Bebe Ortiz on 07-05-2023 Bilirubin Ql (U) Negative Negative [facility] Bilirubin.total [Mass/volume ] in Serum or PlasmaOrdered By: Bebe Ortiz on 07-05-2023 Bilirubin [Mass/Vol] 0.5 mg/dL Normal 0.3-1.0 [facility] Comment on above: Performed By: #### C MP, PT, CBC, PTT, HS TROP #### [facility] [address] [place] [address] CT head/brain wo conon 07-05 CT head/brain wo con [facility] [place] [address] CT Scan Report Signed Patient: Maegan Dye MR#: [id number] : 1950 Acct:[id number] Age/Sex: 73 / F ADM Date: 07/05/23 Loc: ER Room: Type: [facility] ER Attending Dr: Copies to: Bebe Ortiz [...] Ángel Littlejohn M.D.07/05/2023 5:14 PM Dictation Location: [place] [address] Transcribed By: [facility] 07/05/231713 Dictated By: Ángel Littlejohn II, MD 07/05/231709 Signed By: 07/05/231713 Normal [facility] Calcium [Mass/volume] in Ser um or PlasmaOrdered By: Bebe Ortiz on 07-05-2023 Calcium [Mass/Vol] 9.7 mg/dL Normal 8.6-10.3 [facility] Comment on above: Performed By: #### C MP, PT, CBC, PTT, HS TROP #### [facility] [address] [place] [address] Cannabinoids [Presence] in U rine by Screen methodOrdered By: Bebe Ortiz on 07-05-2023 Cannabinoids Screen Ql (U) Negative Negative [facility] Comment on above: These are unconfirme d results and should not be used for legal purposes. Drug Cut-Off Concentration: AMPH 1000 ng/mL PHILL 200 ng/mL ROBERT 200 ng/mL COCM 300 ng/mL OP 300 ng/mL PCP 25 ng/mL THC 20 ng/mL Carbon dioxide, total [Moles /volume] in Serum or PlasmaOrdered By: Bebe Ortiz on 07-05-2023 CO2 [Moles/Vol] 29.2 mmol/L Normal 21.0-31.0 [facility] Comment on above: Performed By: #### C MP, PT, CBC, PTT, HS TROP #### [address] Chloride [Moles/volume] in S clarisa or PlasmaOrdered By: Bebe Ortiz on 07-05-2023 Chloride [Moles/Vol] 101 mmol/L Normal 98-107 [facility] Comment on above: Performed By: #### C MP, PT, CBC, PTT, HS TROP #### [address] Complete Blood Count Auto Di ffon 07-05-2023 Mean Corpuscular HGB Conc 32.5 g/dL Normal 32.0-35.0 [facility] Comment on above: Performed By: #### C MP, PT, CBC, PTT, HS TROP #### [address] Monocytes/100 WBC (Bld) 17.07 % Normal 0.00-20.00 [facility] Comment on above: Performed By: #### C MP, PT, CBC, PTT, HS TROP #### [address] NRBC% 0.1 /100{WBC} Normal 0-0.5 [facility] Comment on above: Performed By: #### C MP, PT, CBC, PTT, HS TROP #### [address] Comprehensive Metabolic Pane isauro 07-05-2023 Albumin [Mass/Vol] 4.4 g/dL Normal 3.5-5.7 [facility] Comment on above: Performed By: #### C MP, PT, CBC, PTT, HS TROP #### [address] Creatinine Clr Calc Pharmacy 34.02 Normal [facility] Comment on above: Result Comment: PERF ORMED BY: [place] [address] PATHOLOGIST COIN MACHINE MECHANIC JIANLAN SUN M.D. Performed By: #### C MP, PT, CBC, PTT, HS TROP #### [place] [address] [place] GFR/1.73 sq M.predicted MDRD (S/P/Bld) [Vol rate/Area] 50.736 mL/min/{1.73_m2} Normal [facility] Comment on above: Performed By: #### C MP, PT, CBC, PTT, HS TROP #### [address] Creatinine [Mass/volume] in Serum or PlasmaOrdered By: Bebe Ortiz on 07-05-2023 Creatinine [Mass/Vol] 1.13 mg/dL Normal 0.60-1.20 [facility] Comment on above: Performed By: #### C MP, PT, CBC, PTT, HS TROP #### [address] Dipstick and Microscopicon 0 07-05-2023 Appearance (U) Turbid Critically abnormal Clear [facility] Comment on above: Order Comment: Name Collection Type:: Clean-Voided Midstream Performed By: #### C UU, ADDONUAPLUS #### [place] [address] [place] Bacteria,Urine 2+ High None Seen [facility] Comment on above: Order Comment: Name Collection Type:: Clean-Voided Midstream Performed By: #### C UU, ADDONUAPLUS #### [place] [address] [place] Bilirubin,Urine Negative Normal Negative [facility] Comment on above: Order Comment: Name Collection Type:: Clean-Voided Midstream Performed By: #### C UU, ADDONUAPLUS #### [place] [address] [place] Glucose Ql (U) Normal Normal Normal [facility] Comment on above: Order Comment: Name Collection Type:: Clean-Voided Midstream Performed By: #### C UU, ADDONUAPLUS #### [place] [address] [place] Hyaline Casts,Urine 0-8 Normal 0-8 [facility] Comment on above: Order Comment: Name Collection Type:: Clean-Voided Midstream Result Comment: PERF ORMED BY: [place] [address] PATHOLOGIST COIN MACHINE MECHANIC CORIE SILVA M.D. Performed By: #### C UU, ADDONUAPLUS #### [address] Ketones Ql (U) Negative Normal Negative [facility] Comment on above: Order Comment: Name Collection Type:: Clean-Voided Midstream Performed By: #### C UU, ADDONUAPLUS #### [address] Leukocyte esterase Test strip Ql (U) 4+ High Negative [facility] Comment on above: Order Comment: Name Collection Type:: Clean-Voided Midstream Performed By: #### C UU, ADDONUAPLUS #### [address] Nitrite,Urine Negative Normal Negative [facility] Comment on above: Order Comment: Name Collection Type:: Clean-Voided Midstream Performed By: #### C UU, ADDONUAPLUS #### [address] Occult Blood,Urine Trace High Negative [facility] Comment on above: Order Comment: Name Collection Type:: Clean-Voided Midstream Result Comment: PERF ORMED BY: [place] [address] PATHOLOGIST COIN MACHINE MECHANIC CORIE SILVA M.D. Performed By: #### C UU, ADDONUAPLUS #### [place] [address] [place] Protein,Urine Negative Normal Negative [facility] Comment on above: Order Comment: Name Collection Type:: Clean-Voided Midstream Performed By: #### C UU, ADDONUAPLUS #### [place] [address] [place] RBC,Urine 5-9 High 0-4 [facility] Comment on above: Order Comment: Name Collection Type:: Clean-Voided Midstream Performed By: #### C UU, ADDONUAPLUS #### [place] [address] [place] Renal Epithelial Cells,Urine 0-1 Normal 0-1 [facility] Comment on above: Order Comment: Name Collection Type:: Clean-Voided Midstream Performed By: #### C UU, ADDONUAPLUS #### [address] Specificy [place],Urine 1.009 Normal 1.001-1.03 0 [facility] Comment on above: Order Comment: Name Collection Type:: Clean-Voided Midstream Performed By: #### C UU, ADDONUAPLUS #### [place] [address] [place] Squamous Epithelial Cell,Urine 10-19 High 0-2 [facility] Comment on above: Order Comment: Name Collection Type:: Clean-Voided Midstream Performed By: #### C UU, ADDONUAPLUS #### [place] [address] [place] Urobilinogen,Urine Normal Normal Normal [facility] Comment on above: Order Comment: Name Collection Type:: Clean-Voided Midstream Performed By: #### C UU, ADDONUAPLUS #### [place] [address] [place] WBC,Urine 50-100 High 0-4 [facility] Comment on above: Order Comment: Name Collection Type:: Clean-Voided Midstream Performed By: #### C UU, ADDONUAPLUS #### [place] [address] [place] Drug Screen,Urineon 07-05-19 24 Amphetamine Screen,Urine Negative Normal Negative [facility] Comment on above: Performed By: #### C UU, ADDONUAPLUS #### [address] Barbiturate Screen,Urine Negative Normal Negative [facility] Comment on above: Performed By: #### C UU, ADDONUAPLUS #### [address] Benzodiazepines Screen,Urine Negative Normal Negative [facility] Comment on above: Performed By: #### C UU, ADDONUAPLUS #### [address] Cannabinoid Screen,Urine Negative Normal Negative [facility] Comment on above: Result Comment: Thes e are unconfirmed results and should not be used for legal purposes. Drug Cut-Off Concentration: AMPH 1000 ng/mL PHILL 200 ng/mL ROBERT 200 ng/mL COCM 300 ng/mL OP 300 ng/mL PCP 25 ng/mL THC 20 ng/mL PERFORMED BY: [place] [address] PATHOLOGIST COIN MACHINE MECHANIC CORIE SILVA M.D. Performed By: #### C UU, ADDONUAPLUS #### [address] Cocaine Screen,Urine Negative Normal Negative [facility] Comment on above: Performed By: #### C UU, ADDONUAPLUS #### [place] [address] [place] Opiate Screen,Urine Positive High Negative [facility] Comment on above: Performed By: #### C UU, ADDONUAPLUS #### [place] [address] [place] Phencyclidine Screen,Urine Negative Normal Negative [facility] Comment on above: Performed By: #### C UU, ADDONUAPLUS #### [place] [address] [place] ECG 12 lead ECGon 07-05-2023 ECG 12 lead ECG [facility] Main [place] [address] [place] [address] Electrocardiograph Report Signed Patient: Maegan Dye MR#: [id number] : 1950 Acct:[id number] Age/Sex: 73 / F ADM Date: 07/05/23 Loc: ER Room: Type: [facility] ER Attending Dr: Ordering Provider: Bebe [...] MUS Signed By Chandan Encarnacion MD 07/05/23 9038 Normal [facility] Erythrocyte distribution wid th [Ratio] by Automated countOrdered By: Bebe Ortiz on 07-05-2023 Erythrocyte distribution width (RBC) [Ratio] 12.5 % Normal 11.9-15.3 [facility] Comment on above: Performed By: #### C MP, PT, CBC, PTT, HS TROP #### [facility] [address] [id number] [place] Erythrocytes [#/volume] in B lood by Automated countOrdered By: Bebe Ortiz on 07-05-2023 RBC (Bld) [#/Vol] 4.70 10*6/uL Normal 3.60-5.00 [facility] Comment on above: Performed By: #### C MP, PT, CBC, PTT, HS TROP #### [facility] [address] [place] [address] [place] Glucose [Mass/volume] in Ser um or PlasmaOrdered By: Bebe Ortiz on 07-05-2023 Glucose [Mass/Vol] 111 mg/dL High 70-100 [facility] Comment on above: ADA recommended refe rence rangeRandom Glucose Reference Range is dependent on time and content of last meal. Glucose of more than 200 mg/dL in a nonstressed, ambulatory subject supports the diagnosis of Diabetes Mellitus. Result Comment: [place] Glucose Reference Range is dependent on time and content of last meal. Glucose of more than 200 mg/dL in a nonstressed, ambulatory subject supports the diagnosis of Diabetes Mellitus. ADA recommended reference range Performed By: #### C MP, PT, CBC, PTT, HS TROP #### [facility] [address] Hematocrit [Volume Fraction] of Blood by Automated countOrdered By: Bebe Ortiz on 07-05-2023 Hematocrit (Bld) [Volume fraction] 41.3 % Normal 34.0-46.4 [facility] Comment on above: Performed By: #### C MP, PT, CBC, PTT, HS TROP #### [address] Hemoglobin [Mass/volume] in BloodOrdered By: Bebe Ortiz on 07-05-2023 Hemoglobin (Bld) [Mass/Vol] 13.4 g/dL Normal 11.8-15.4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 Performed By: #### C BC #### [facility] [address] [place] [address] Dr. Stevie Torres CRPon 10-18-2022 CRP [Mass/Vol] mg/L Normal <=1.0 [facility] Comment on above: Performed By: #### B MP, CRP, URIC #### [facility] [address] [place] [address] Dr. Stevie Torres PROF CHEM 8 (BAS METB)on Anion gap [Moles/Vol] 8.7 mmol/L Normal [facility] Comment on above: Performed By: #### B MP, CRP, URIC #### [facility] [address] [place] [address] Dr. Stevie Torres Calcium [Mass/Vol] 8.9 mg/dL Normal 8.5-10.1 [facility] Comment on above: Performed By: #### B MP, CRP, URIC #### [facility] [address] [place] [address] Dr. Stevie Torres Chloride [Moles/Vol] 98 mmol/L Normal 98-107 [facility] Comment on above: Performed By: #### B MP, CRP, URIC #### [facility] [address] [place] [address] Dr. Stevie Torres CO2 [Moles/Vol] 33.6 mmol/L Critically high 21.0-32.0 [facility] Comment on above: Performed By: #### B MP, CRP, URIC #### [facility] [address] [address] [address] Stevie Torres Creatinine [Mass/Vol] 1.54 mg/dL Critically high 0.55-1.02 [facility] Comment on above: Performed By: #### B MP, CRP, URIC #### [facility] [address] [address] [address] Stevie Torres EGFR-AF BRITISH 40 mL/min/1.73m2 Critically low >=60 [facility] Comment on above: Performed By: #### B MP, CRP, URIC #### [facility] [address] [address] [address] Stevie Torres EGFR-NON AF BRITISH 33 mL/min/1.73m2 Critically low >=60 [facility] Comment on above: Performed By: #### B MP, CRP, URIC #### [facility] [address] [address] [address] Stevie Torres Glucose [Mass/Vol] 143 mg/dL Critically high 74-106 [facility] Comment on above: Performed By: #### B MP, CRP, URIC #### [facility] [address] [address] [address] Stevie Torres Potassium [Moles/Vol] 4.3 mmol/L Normal 3.5-5.1 [facility] Comment on above: Performed By: #### B MP, CRP, URIC #### [facility] [address] [address] [address] Stevie Torres Sodium [Moles/Vol] 136 mmol/L Normal 136-145 [facility] Comment on above: Performed By: #### B MP, CRP, URIC #### [facility] [address] [address] [address] Stevie Torres Urea nitrogen [Mass/Vol] 19.0 mg/dL Critically high 7.0-18.0 [facility] Comment on above: Performed By: #### B MP, CRP, URIC #### [facility] [address] [address] [address] Stevie Torres Urea nitrogen/Creatinine [Mass ratio] 12.3 mg/mg Normal [facility] Comment on above: Performed By: #### B MP, CRP, URIC #### [facility] [address] [address] [address] Stevie Torres SED RATE WESTERGRENon 2022 SED RATE 18 mm/hr Normal <=30 [facility] Comment on above: Performed By: #### S EDR #### [facility] [address] [place] [address] Dr. Stevie Torres URIC ACID SERUMon 10-18-2022 Urate [Mass/Vol] 5.4 mg/dL Normal 2.6-6.0 [facility] Comment on above: Performed By: #### B MP, CRP, URIC #### [facility] [address] [place] [address] Dr. Stevie Torres XR FOOT RT MIN [...] by: JORGE WOODS Date: 2022-10-18 21:46 Normal [facility] Automated erythrocytes count in urine sediment (number/area)Ordered By: Rogelio De on 06-09-2022 RBC Auto (Urine sed) [#/Area] 0-1 [HPF] 0-4 [facility] Automated leukocytes count i n urine sediment (number/area)Ordered By: Rogelio De on 06-09-2022 WBC Auto (Urine sed) [#/Area] 20-49 [HPF] 0-4 [facility] Bilirubin Test strip Ql (U)O rdered By: Rogelio De on 06-09-2022 Bilirubin Ql (U) Negative Negative [facility] Color Auto (U)Ordered By: Ab celeste De on 06-09-2022 Color (U) Yellow Yellow [facility] Ketones Auto test strip (U) [Mass/Vol]Ordered By: Rogelio De on 06-09-2022 Ketones (U) [Mass/Vol] Negative Negative [facility] - UrinalysisOrder ed By: Rogelio De on 06-09-2022 Hyaline casts LM Ql (Urine sed) 0-8 [LPF] 0-8 [facility] Nitrite Test strip Ql (U)Ord ered By: Rogelio De on 06-09-2022 Nitrite Ql (U) Negative Negative [facility] Protein Auto test strip (U) [Mass/Vol]Ordered By: Rogelio De on 06-09-2022 Protein (U) [Mass/Vol] Negative Negative [facility] Specific gravity Auto test s trip (U) [Rel density]Ordered By: Rogelio De on 06-09-2022 Specific gravity (U) [Rel density] 1.010 1.001-1.03 0 [facility] Squamous epithelial cells de tection in urine sediment by light microscopyOrdered By: Rogelio De on 06-09-2022 Epithelial cells.squamous LM Ql (Urine sed) 0-1 [HPF] 0-2 [facility] Urine bacteria detection by automated methodOrdered By: Rogelio De on 06-09-2022 Bacteria Auto Ql (U) None seen None Seen [facility] Urine clarity by refractomet ry automatedOrdered By: Rogelio De on 06-09-2022 Clarity Refractometry automated (U) Clear Clear [facility] Urine glucose measurement by automated test strip (mass/volume)Ordered By: Rogelio De on 06-09-2022 Glucose Auto test strip (U) [Mass/Vol] Normal mg/dL Normal [facility] Urine hemoglobin detection b y automated test stripOrdered By: Rogelio De on 06-09-2022 Hemoglobin Auto test strip Ql (U) Negative Negative [facility] Urine leukocyte esterase det ection by automated test stripOrdered By: Rogelio De on 06-09-2022 Leukocyte esterase Auto test strip Ql (U) 4+ Negative [facility] Urobilinogen Auto test strip (U) [Mass/Vol]Ordered By: Rogelio De on 06-09-2022 Urobilinogen (U) [Mass/Vol] Normal mg/dL Normal [facility] pH Auto test strip (U)Ordere d By: Rogelio De on 06-09-2022 pH (U) 5.5 [pH] 5.0-9.0 [facility] Albumin [Mass/volume] in Ser um or PlasmaOrdered By: Rogelio De on 06-08-2022 Albumin [Mass/Vol] 3.0 g/dL 3.2-5.5 [facility] Creatinine and Glomerular fi ltration rate.predicted panel (S/P/Bld)Ordered By: Rogelio De on 06-08-2022 Creatinine [Mass/Vol] 1.02 mg/dL 0.44-1.03 [facility] Estimated glomerular filtrat ion rate (GFR) non- AmericanOrdered By: Rogelio De on 06-08-2022 GFR/1.73 sq M.predicted among non-blacks MDRD (S/P/Bld) [Vol rate/Area] 53 mL/Min [facility] Globulin Calc (S) [Mass/Vol] Ordered By: Rogelio De on 06-08-2022 Globulin (S) [Mass/Vol] 2.2 g/dL [facility] Glucose mean value [Mass/vol ume] in Blood Estimated from glycated hemoglobinOrdered By: Rogelio De on 06-08-2022 Average glucose Estimated from glycated hemoglobin (Bld) [Mass/Vol] 126 mg/dL [facility] Hemoglobin A1c percentageOrd ered By: Rogelio De on 06-08-2022 HbA1c (Bld) [Mass fraction] 6.0 % 4.3-5.6 [facility] Comment on above: Increased risk for d iabetes: 5.7 - 6.4diabetes: >6.4glycemic control for adults with diabetes: <7.0 No Panel InformationOrdered By: Rogelio De on 06-08-2022 Estimated GFR () > 60 mL/Min [facility] Comment on above: GFR estimated refere nce range: According to KDOQI guidelines, <60 ml/min/1.73m2 is sufficient to diagnose a patient with chronic kidney disease. Pharmacy Creatinine Clearance (Chem 36.51 [facility] Protein [Mass/volume] in Ser um or PlasmaOrdered By: Rogelio De on 06-08-2022 Protein [Mass/Vol] 5.2 g/dL 6.1-7.9 [facility] Serum or plasma alanine hancock otransferase measurement without P-5'-P (enzymatic activiOrdered By: Rogelio De on 06-08-2022 ALT No additional P-5'-P [Catalytic activity/Vol] 15 U/L 10-60 [facility] Serum or plasma albumin/glob ulin mass ratioOrdered By: Rogelio De on 06-08-2022 Albumin/Globulin [Mass ratio] 1.4 {ratio} [facility] Serum or plasma alkaline miguel ángel sphatase measurement (enzymatic activity/volume)Ordered By: Rogelio De on 06-08-2022 ALP [Catalytic activity/Vol] 53 U/L 32-92 [facility] Serum or plasma anion gap de terminationOrdered By: Rogelio De on 06-08-2022 Anion gap [Moles/Vol] 9.5 mmol/L 6.0-15.0 [facility] Serum or plasma aspartate am inotransferase measurement (enzymatic activity/volume)Ordered By: Rogelio De on 06-08-2022 AST [Catalytic activity/Vol] 16 U/L 10-42 [facility] Serum or plasma calcium dimitris urement (mass/volume)Ordered By: Rogelio De on 06-08-2022 Calcium [Mass/Vol] 9.2 mg/dL 8.2-10.2 [facility] Serum or plasma chloride jeison surement (moles/volume)Ordered By: Rogelio De on 06-08-2022 Chloride [Moles/Vol] 96 mmol/L 95-114 [facility] Serum or plasma glucose dimitris urement (mass/volume)Ordered By: Rogelio De on 06-08-2022 Glucose [Mass/Vol] 102 mg/dL 70-100 [facility] Comment on above: ADA recommended refe rence rangeRandom Glucose Reference Range is dependent on time and content of last meal. Glucose of more than 200 mg/dL in a nonstressed, ambulatory subject supports the diagnosis of Diabetes Mellitus. Serum or plasma potassium me asurement (moles/volume)Ordered By: Rogelio De on 06-08-2022 Potassium [Moles/Vol] 4.3 mmol/L 3.5-5.1 [facility] Serum or plasma sodium measu rement (moles/volume)Ordered By: Rogelio De on 06-08-2022 Sodium [Moles/Vol] 131 mmol/L 136-146 [facility] Serum or plasma total biliru bin measurement (mass/volume)Ordered By: Rogelio De on 06-08-2022 Bilirubin [Mass/Vol] 0.3 mg/dL 0.3-1.2 [facility] Serum or plasma total carbon dioxide measurement (moles/volume)Ordered By: Rogelio De on 06-08-2022 CO2 [Moles/Vol] 29.8 mmol/L 22.0-30.0 [facility] Serum or plasma urea nitroge n measurement (mass/volume)Ordered By: Rogelio De on 06-08-2022 Urea nitrogen [Mass/Vol] 28 mg/dL 9-23 [facility] Cholesterol [Mass/volume] in Serum or PlasmaOrdered By: Rogelio De on 05-26-2022 Cholesterol [Mass/Vol] 154 mg/dL 140-200 [facility] Comment on above: Chol less than 200 m g/dl low riskChol 201-239 mg/dl borderline riskChol 240 mg/dl and greater high risk Cholesterol in LDL Calc [Mas s/Vol]Ordered By: Rogelio De on 05-26-2022 Cholesterol in LDL [Mass/Vol] 73 mg/dL 0-100 [facility] Comment on above: LDL ATP III CLASSIFI CATIONLDL less than 100 mg/dL OptimalLDL 100-129 mg/dL Near or above optimalLDL 130-159 mg/dL Borderline highLDL 160-189 mg/dL HighLDL greater than 189 mg/dL Very high Cholesterol in VLDL Calc [Ma ss/Vol]Ordered By: Rogelio De on 05-26-2022 Cholesterol in VLDL [Mass/Vol] 13 mg/dL [facility] No Panel InformationOrdered By: Rogelio De on 05-26-2022 25-Hydroxy Vitamin D Total 57.1 ng/mL 30-100 [facility] Comment on above: VITAMIN D STATUS 25( [place])VITAMIN D RANGE (ng/mL) Deficient <20 Insufficient 20 to <30Sufficient 30 to 100Reference: Mahesh MF,[place] NC, Omega GODDARD, et al. Evaluation,treatment, and prevention of vitamin D deficiency; an Endocrine Society clinical practice guideline. JCEM. 2010; 96(7):1911-30. Serum or plasma high density lipoprotein (HDL) cholesterol measurementOrdered By: Rogelio De on 05-26-2022 Cholesterol in HDL [Mass/Vol] 67 mg/dL 35-85 [facility] Comment on above: HDL CHOL ATP-III CLA SSIFICATION Cardiovascular RiskHDL > or equal to 60 mg/dL LOWHDL < 40 mg/dL HIGH Serum or plasma total choles terol/high density lipoprotein (HDL) cholesterol mass ratOrdered By: Rogelio De on 05-26-2022 Cholesterol.total/Chol esterol in HDL [Mass ratio] 2.3 {ratio} <5.0 [facility] TSH DL <= 0.005 mIU/L QnOrde red By: oRgelio De on 05-26-2022 TSH Qn 0.56 m[IU]/L 0.45-5.33 [facility] Triglyceride [Mass/volume] i n Serum or PlasmaOrdered By: Rogelio De on 05-26-2022 Triglyceride [Mass/Vol] 69 mg/dL 35-149 [facility] Comment on above: TRIG ATP III CLASSIF ICATIONTRIG less than 150 mg/dL NormalTRIG 150-199 mg/dL Borderline highTRIG 200-500 mg/dL High TRIG greater than 500 mg/dL Very highStandard traceable to the Center for Disease Conrtrol and Prevention (CDC) test method. Basophils Auto (Bld) [#/Vol] Ordered By: Rome Luciano on 05-25-2022 Basophils (Bld) [#/Vol] 0.1 10*3/uL 0.0-0.2 [facility] Basophils/100 WBC Auto (Bld) Ordered By: Rome Luciano on 05-25-2022 Basophils/100 WBC (Bld) 0.6 % . [facility] Eosinophils Auto (Bld) [#/Vo l]Ordered By: Rome Luciano on 05-25-2022 Eosinophils (Bld) [#/Vol] 0.1 10*3/uL 0.0-0.45 [facility] Eosinophils/100 WBC Auto (Bl d)Ordered By: Rome Luciano on 05-25-2022 Eosinophils/100 WBC (Bld) 0.6 % . [facility] Erythrocyte distribution wid th Auto (RBC) [Ratio]Ordered By: Rome Luciano on 05-25-2022 Erythrocyte distribution width (RBC) [Ratio] 12.2 % 11.9-15.3 [facility] Hematocrit Auto (Bld) [Volum e fraction]Ordered By: Rome Luciano on 05-25-2022 Hematocrit (Bld) [Volume fraction] 39.4 % 34.0-46.4 [facility] Hemoglobin [Mass/volume] in BloodOrdered By: Rome Luciano on 05-25-2022 Hemoglobin (Bld) [Mass/Vol] 13.0 g/dL 11.8-15.4 [facility] Leukocytes [#/volume] correc kenyatta for nucleated erythrocytes in Blood by Automated counOrdered By: Rome Luciano on 05-25-2022 WBC corrected for nucl RBC Auto (Bld) [#/Vol] 11.1 10*3/uL 3.8-11.6 [facility] Lymphocytes Auto (Bld) [#/Vo l]Ordered By: Rome Bolandr on 05-25-2022 Lymphocytes (Bld) [#/Vol] 1.4 10*3/uL 1.00-4.8 [facility] Lymphocytes/100 WBC Auto (Bl d)Ordered By: Rome Luciano on 05-25-2022 Lymphocytes/100 WBC (Bld) 12.4 % . [facility] MCH Auto (RBC) [Entitic mass ]Ordered By: Rome Luciano on 05-25-2022 MCH (RBC) [Entitic mass] 30.9 pg 24.7-34.3 [facility] MCHC Auto (RBC) [Mass/Vol]Or dered By: Rome Luciano on 05-25-2022 MCHC (RBC) [Mass/Vol] 32.9 g/dL 32.0-35.0 [facility] MCV Auto (RBC) [Entitic vol] Ordered By: Rome Luciano on 05-25-2022 MCV (RBC) [Entitic vol] 94.0 fL 80-100 [facility] MICRO OTHER TESTSOrdered By: Luis Trotter on 05-25-2022 Rapid COV Int NEG Ctl Pass (05/25/22 2:11 AM) Normal [facility] [place] Man Sero Rapid COV Int POS Ctl Pass (05/25/22 2:11 AM) Normal [facility] [place] Man Sero SARS-CoV+SARS-CoV-2 (COVID-19) Ag IA.rapid Ql (Resp) Not Detected (05/25/22 2:11 AM) Normal Not Detected [facility] [place] Man Sero Monocytes Auto (Bld) [#/Vol] Ordered By: Rome Luciano on 05-25-2022 Monocytes (Bld) [#/Vol] 0.9 10*3/uL 0.0-0.8 [facility] Monocytes/100 WBC Auto (Bld) Ordered By: Obyanickdalakshmi Vegaomar on 05-25-2022 Monocytes/100 WBC (Bld) 7.8 % . [facility] Neutrophils Auto (Bld) [#/Vo l]Ordered By: Obyanickdalakshmi Vegaomar on 05-25-2022 Neutrophils (Bld) [#/Vol] 8.7 10*3/uL 1.8-7.7 [facility] Neutrophils/100 WBC Auto (Bl d)Ordered By: Obyanickdalakshmi Vegaomar on 05-25-2022 Neutrophils/100 WBC (Bld) 78.6 % . [facility] Nucleated erythrocytes [Pres ence] in Blood by Automated countOrdered By: Rome Bolandr on 05-25-2022 Nucleated RBC Auto Ql (Bld) 0.0 /100{WBC} 0-0.5 [facility] Platelet mean volume Auto (B ld) [Entitic vol]Ordered By: Rome Vegaomar on 05-25-2022 Platelet mean volume (Bld) [Entitic vol] 7.1 fL 6.3-10.7 [facility] Platelets Auto (Bld) [#/Vol] Ordered By: Obheather Vegaomar on 05-25-2022 Platelets (Bld) [#/Vol] 219 10*3/uL 150-450 [facility] RBC Auto (Bld) [#/Vol]Ordere d By: Obyanickdalakshmi Vegaomar on 05-25-2022 RBC (Bld) [#/Vol] 4.19 10*6/uL 3.60-5.00 [facility] WBC Auto (Bld) [#/Vol]Ordere d By: Obyanickdah Garyomar on 05-25-2022 WBC (Bld) [#/Vol] 11.1 10*3/uL 3.8-11.6 [facility] CBC AUTO DIFFon 05-24-2022 BASO # 0.1 103/ul Normal 0.0-0.1 [facility] Comment on above: Performed By: #### C BC #### [facility] [address] [place] [address] Dr. Stevie Torres Basophils/100 WBC (Bld) 0.6 % Normal 0.2-2.0 [facility] Comment on above: Performed By: #### C BC #### [facility] [address] [place] [address] Dr. Stevie Torres EO # 0.1 103/ul Normal 0.0-0.7 [facility] Comment on above: Performed By: #### C BC #### [facility] [address] [place] [address] Dr. Stevie Torres Eosinophils/100 WBC (Bld) 0.8 % Critically low 0.9-7.0 [facility] Comment on above: Performed By: #### C BC #### [facility] [address] [place] [address] Dr. Stevie Torres Erythrocyte distribution width (RBC) [Ratio] 11.6 % Normal 11.0-15.0 [facility] Comment on above: Performed By: #### C BC #### [facility] [address] [place] [address] Dr. Stevie Torres Hematocrit (Bld) [Volume fraction] 38.4 % Normal 36.0-48.0 [facility] Comment on above: Performed By: #### C BC #### [facility] [address] [place] [address] Dr. Stevie Torres Hemoglobin (Bld) [Mass/Vol] 12.5 g/dL Normal 12.0-16.0 [facility] Comment on above: Performed By: #### C BC #### [facility] [address] [place] [address] Dr. Stevie Torres IG # 0.05 10e3/ul Critically high 0.00-0.03 [facility] Comment on above: Performed By: #### C BC #### [facility] [address] [place] [address] Dr. Stevie Torres IG % 0.4 % Normal 0.0-0.5 [facility] Comment on above: Performed By: #### C BC #### [facility] [address] [place] [address] Dr. Stevie Torres LYMPH # 1.7 103/ul Normal 1.2-3.8 [facility] Comment on above: Performed By: #### C BC #### [facility] [address] [address] [address] Stevie Torres Lymphocytes/100 WBC (Bld) 15.5 % Critically low 20.5-60.0 [facility] Comment on above: Performed By: #### C BC #### [facility] [address] [place] [address] Dr. Stevie Torres MANUAL DIFF REQ NO Normal [facility] Comment on above: Performed By: #### C BC #### [facility] [address] [place] [address] Dr. Stevie Torres MCH (RBC) [Entitic mass] 31.2 pg Normal 26.7-34.0 [facility] Comment on above: Performed By: #### C BC #### [facility] [address] [place] [address] Dr. Stevie Torres MCHC (RBC) [Mass/Vol] 32.6 g/dL Normal 29.9-35.2 [facility] Comment on above: Performed By: #### C BC #### [facility] [address] [place] [address] Dr. Stevie Torres MCV (RBC) [Entitic vol] 95.8 fL Normal 81.0-99.0 [facility] Comment on above: Performed By: #### C BC #### [facility] [address] [place] [address] Dr. Stevie Torres MONO # 1.1 103/ul Critically high 0.3-0.8 [facility] Comment on above: Performed By: #### C BC #### [facility] [address] [place] [address] Dr. Stevie Torres Monocytes/100 WBC (Bld) 9.6 % Normal 1.7-12.0 [facility] Comment on above: Performed By: #### C BC #### [facility] [address] [address] [address] Stevie Torres NEUT # 8.2 103/ul Critically high 1.4-6.5 [facility] Comment on above: Performed By: #### C BC #### [facility] [id number] Stevie Torres Neutrophils/100 WBC (Bld) 73.1 % Normal 43.0-75.0 [facility] Comment on above: Performed By: #### C BC #### [facility] [address] [place] [address] Dr. Stevie Torres Platelet mean volume (Bld) [Entitic vol] 8.4 fL Critically low 9.5-13.5 [facility] Comment on above: Performed By: #### C BC #### [facility] [address] [place] [address] Dr. Stevie Torres PLT 223 103/ul Normal 150-450 [facility] Comment on above: Performed By: #### C BC #### [facility] [address] [place] [address] Dr. Stevie Torres RBC 4.01 106/ul Critically low 4.20-5.40 [facility] Comment on above: Performed By: #### C BC #### [facility] [address] [place] [address] Dr. Stevie Torres WBC 11.2 103/ul Critically high 4.0-11.0 [facility] Comment on above: Performed By: #### C BC #### [facility] [address] [place] [address] Dr. Stevie Torres CHEMISTRYOrdered By: SYSTEM SYSTEM [...] 49 mL/min/1.73 m2 Low >=59mL/min /1.73 m2 [facility] [place] Chem S Globulin (S) [Mass/Vol] 2.8 g/dL [...] Bilirubin Ql (U) Negative Normal NEGATIVE [facility] Comment on above: Performed By: #### E RUR #### [facility] [address] [place] [address] Dr. Stevie Torres Clarity (U) CLEAR Normal CLEAR [facility] Comment on above: Performed By: #### E RUR #### [facility] [address] [place] [address] Dr. Stevie Torres Color (U) LT. YELLOW Normal YELLOW [facility] Comment on above: Performed By: #### E RUR #### [facility] [address] [place] [address] Dr. Stevie Torres ERUAHD A micrscopic examina tion will be performed if indicated. Normal [facility] Comment on above: Performed By: #### E RUR #### [facility] [address] [place] [address] Dr. Stevie Torres Glucose Ql (U) 500 mg/dl Abnormal NEGATIVE [facility] Comment on above: Performed By: #### E RUR #### [facility] [address] [place] [address] Dr. Stevie Torres Hemoglobin Ql (U) Negative Normal NEGATIVE [facility] Comment on above: Performed By: #### E RUR #### [facility] [address] [place] [address] Dr. Stevie Torres Ketones Ql (U) Negative Normal NEGATIVE [facility] Comment on above: Performed By: #### E RUR #### [facility] [address] [place] [address] Dr. Stevie Torres LEUKOCYTES Negative Normal NEGATIVE [facility] Comment on above: Performed By: #### E RUR #### [facility] [address] [place] [address] Dr. Stevie Torres Nitrite Ql (U) Negative Normal NEGATIVE [facility] Comment on above: Performed By: #### E RUR #### [facility] [address] [place] [address] Dr. Stevie Torres pH (U) 5.0 [pH] Normal 5-9 [facility] Comment on above: Performed By: #### E RUR #### [facility] [address] [place] [address] Dr. Stevie Torres SPEC GRAVITY >=1.030 Abnormal 1.005-<=1. 025 [facility] Comment on above: Performed By: #### E RUR #### [facility] [address] [place] [address] Dr. Stevie Torres UA PROTEIN Negative Normal NEGATIVE/ TRACE [facility] Comment on above: Performed By: #### E RUR #### [facility] [address] [place] [address] Dr. Stevie Torres UR MICRO IND NOT INDICATED Normal [facility] Comment on above: Performed By: #### E RUR #### [facility] [address] [place] [address] Dr. Stevie Torres Urobilinogen Qn (U) 0.2 {Rolan'U}/dL Normal 0.2 - 1. 0 [facility] Comment on above: Performed By: #### E RUR #### [facility] [address] [place] [address] Dr. Stevie Torres HEMATOLOGYOrdered By: SYSTEM SYSTEM [...] 6.5 fL Normal 6.4 - 10.8 fL [facility]eAutoSS Platelets (Bld) [#/Vol] 222.0 E9/L Normal 150.0 - 500.0 E9/L [facility] RBC (Bld) [#/Vol] 4.2 E12/L Low 4.3 - 5.9 E12/L [facility] WBC corrected for nucl RBC Auto (Bld) [#/Vol] 11.0 E9/L Normal 4.0 - 11.0 E9/L [facility] [place] HemeAutoSS PROF CHEM 8 (BAS METB)on Anion gap [Moles/Vol] 12.6 mmol/L Normal [facility] Comment on above: Performed By: #### Sarahi ORONA, UMICRO #### [facility] [address] [place] [address] Dr. Stevie Torres Calcium [Mass/Vol] 9.1 mg/dL Normal 8.5-10.1 [facility] Comment on above: Performed By: #### Sarahi ORONA, UMICRO #### [facility] [address] [address] [address] Stevie Torres Chloride [Moles/Vol] 97 mmol/L Critically low 98-107 [facility] Comment on above: Performed By: #### Sarahi ORONA, UMICRO #### [facility] [address] [address] [address] Stevie Torres CO2 [Moles/Vol] 29.6 mmol/L Normal 21.0-32.0 [facility] Comment on above: Performed By: #### Sarahi ORONA, UMICRO #### [facility] [address] [address] [address] Stevie Torres Creatinine [Mass/Vol] 1.22 mg/dL Critically high 0.55-1.02 [facility] Comment on above: Performed By: #### Sarahi ORONA, UMICRO #### [facility] [address] [address] [address] Stevie Torres EGFR-AF BRITISH 52 mL/min/1.73m2 Critically low >=60 [facility] Comment on above: Performed By: #### FRITZ LOVELLRO #### [facility] [address] [address] [address] Stevie Torres EGFR-NON AF BRITISH 43 mL/min/1.73m2 Critically low >=60 [facility] Comment on above: Performed By: #### FRITZ LOVELLRO #### [facility] [address] [place] [address] Dr. Stevie Torres Glucose [Mass/Vol] 142 mg/dL Critically high 74-106 [facility] Comment on above: Performed By: #### FRITZ LOVELLRO #### [facility] [address] [place] [address] Dr. Stevie Torres Potassium [Moles/Vol] 4.2 mmol/L Normal 3.5-5.1 [facility] Comment on above: Performed By: #### FRITZ LOVELLRO #### [facility] [address] [place] [address] Dr. Stevie Torres Sodium [Moles/Vol] 135 mmol/L Critically low 136-145 [facility] Comment on above: Performed By: #### FRITZ LOVELLRO #### [facility] [address] [place] [address] Dr. Stevie Torres Urea nitrogen [Mass/Vol] 28.0 mg/dL Critically high 7.0-18.0 [facility] Comment on above: Performed By: #### FRITZ LOVELLRO #### [facility] [address] [place] [address] Dr. Stevie Torres Urea nitrogen/Creatinine [Mass ratio] 23.0 mg/mg Normal [facility] Comment on above: Performed By: #### FRITZ LOVELLRO #### [facility] [address] [place] [address] Dr. Stevie Torres TROPONIN, HIGH SENSITIVITYon 05-24-2022 HSTROP 15.5 pg/mL Normal 4.0-51.3 [facility] Comment on above: Result Comment: CUT- OFF POINTS HAVE BEEN ESTABLISHED BASED ON THE FOURTH UNIVERSAL DEFINITIONS OF MYOCARDIAL INFARCTION. THE UPPER REFERENCE LIMIT (URL) OF TROPONIN, DEFINED THE 99TH PERCENTILE OF cTnI DISTRIBUTION IN A REFERENCE POPULATION, HAS BEEN CONFIRMED THE DECISION THRESHOLD FOR [place] DIAGNOSIS. Performed By: #### TAMMIE LOVELL #### [facility] [address] [place] [address] Dr. Stevie Torres URINALYSISOrdered By: Luis Trotter [...] PM) Normal Negative [facility] UA Auto SS [place].plasma/[place] .RBC (Bld) [Mass ratio] 0-3 /HPF Normal [...] [facility] UA Auto SS Urobilinogen Qn (U) 0.7868910 {Rolan'U}/dL Normal 0.0 - 1.0 EU/dL [facility] UA Auto SS WBC Auto Ql (U) Negative (05/24/22 11:46 PM) Normal Negative [facility] [place] UA Auto SS WBC LM.HPF (Urine sed) [#/Area] 0-5 /HPF Normal 0-5/HPF [facility] [place] UA Auto SS CHEMISTRYOrdered By: Lab ROP User on 04-19-2022 Glucose [Mass/Vol] 121 mg/dL High 55 - 99 mg/dL [facility] [place] POC Subsection Comment on above: Result Comment: Christina perea RN/ POC Device SN [id number] Invalid Interpretation Code [facility] [place] POC Subsection POC User ID [id number] Invalid Interpretation Code [facility] [place] POC Subsection POC Username [email or web address] LOU Invalid Interpretation Code [facility] [place] POC Subsection CHEMISTRYOrdered By: SYSTEM SYSTEM on 04-19-2022 Sodium [Moles/Vol] 133 mmol/L Low 135 - 145 mmol/L [facility] Anion gap [Moles/Vol] 13 mmol/L Normal 6 - 16 mEq/L [facility] Calcium [Mass/Vol] 8.9 mg/dL Normal 8.9 - 11. 1 mg/dL [facility] Chloride [Moles/Vol] 94 mmol/L Low 101 - 1 11 mmol/L [facility] [place] Remisol CO2 [Moles/Vol] 28 mmol/L Normal 21 - 31 mmol/L [facility] Creatinine [Mass/Vol] 1.4 mg/dL High 0.5 - 1.3 mg/dL [facility] [place] Remisol GFR/1.73 sq M.predicted among blacks MDRD (S/P/Bld) [Vol rate/Area] 45 mL/min/1.73 m2 Low >=59mL/min /1.73 m2 [facility] [place] Chem S GFR/1.73 sq M.predicted among non-blacks MDRD (S/P/Bld) [Vol rate/Area] 37 mL/min/1.73 m2 Low >=59mL/min /1.73 m2 [facility] [place] Chem S Glucose [Mass/Vol] 97 mg/dL Normal [...] ratio] 16 mg/mg Normal 10 - 20 [facility] [place] Remisol CHEMISTRYOrdered By: SYSTEM SYSTEM on 04-18-2022 Anion gap [Moles/Vol] 8 mmol/L Normal 6 - 16 mEq/L [facility] Calcium [Mass/Vol] 8.7 mg/dL Low 8.9 - 11. 1 mg/dL [facility] Chloride [Moles/Vol] 93 mmol/L Low 101 - 1 11 mmol/L [facility] CO2 [Moles/Vol] 32 mmol/L High 21 - 31 mmol/L [facility] [place] Remisol Creatinine [Mass/Vol] 1.3 mg/dL Normal 0.5 - 1.3 mg/dL [facility] [place] Remisol GFR/1.73 sq M.predicted among blacks MDRD (S/P/Bld) [Vol rate/Area] 49 mL/min/1.73 m2 Low >=59mL/min /1.73 m2 [facility] [place] Chem S GFR/1.73 sq M.predicted among non-blacks MDRD (S/P/Bld) [Vol rate/Area] 40 mL/min/1.73 m2 Low >=59mL/min /1.73 m2 [facility] [place] Chem S Glucose [Mass/Vol] 92 mg/dL Normal 55 - 199 mg/dL [facility] [place] Remisol Magnesium [Mass/Vol] 2.0 mg/dL Normal 1.3 - 2 .4 mg/dL [facility] [place] Remisol Potassium [Moles/Vol] 4.1 mmol/L Normal 3.5 - 5.3 mmol/L [facility] [place] Remisol Urea nitrogen [Mass/Vol] 18 mg/dL Normal 5 - 21 mg/dL [facility] [place] Remisol Urea nitrogen/Creatinine [Mass ratio] 14 mg/mg Normal 10 - 20 [facility] [place] Remisol CHEMISTRYOrdered By: Sabi Pardo se on 04-18-2022 Osmolality [Osmolality] 272 mosm/kg Low 275 - 295 mOsm/kg [facility] [place] Man UA SS CHEMISTRYOrdered By: Kris Swain rster on 04-17-2022 Sodium (U) [Moles/Vol] 82 mmol/L Invalid Interpretation Code [facility] [place] Remisol U Osmolality 312 mOsm/kg Normal 50 - 1400 mOsm/kg [facility] [place] Man UA SS CHEMISTRYOrdered By: SYSTEM SYSTEM on 04-17-2022 Troponin I.cardiac [Mass/Vol] 2.40 pg/mL Low 10.10 - 27.10 pg/mL [facility] [place] Remisol Troponin I.cardiac [Mass/Vol] pg/mL Low 10.10 - 27.10 pg/mL [facility] [place] Remisol Troponin I.cardiac [Mass/Vol] 3.00 pg/mL Low 10.10 - 27.10 pg/mL [facility] Anion gap [Moles/Vol] 12 mmol/L Normal 6 - 16 mEq/L [facility] [place] Remisol Calcium [Mass/Vol] 8.9 mg/dL Normal 8.9 - 11. 1 mg/dL [facility] [place] Remisol Chloride [Moles/Vol] 88 mmol/L Low 101 - 1 11 mmol/L [facility] [place] Remisol CO2 [Moles/Vol] 28 mmol/L Normal 21 - 31 mmol/L [facility] [place] Remisol Creatinine [Mass/Vol] 1.1 mg/dL Normal 0.5 - 1.3 mg/dL [facility] [place] Remisol GFR/1.73 sq M.predicted among blacks MDRD (S/P/Bld) [Vol rate/Area] 59 mL/min/1.73 m2 Normal >=59mL/min /1.73 m2 [facility] [place] Chem S GFR/1.73 sq M.predicted among non-blacks MDRD (S/P/Bld) [Vol rate/Area] 49 mL/min/1.73 m2 Low >=59mL/min /1.73 m2 [facility] [place] Chem S Glucose [Mass/Vol] 100 mg/dL Normal 55 - 199 mg/dL [facility] [place] Remisol Potassium [Moles/Vol] 4.3 mmol/L Normal 3.5 - 5.3 mmol/L [facility] [place] Remisol Urea nitrogen [Mass/Vol] 14 mg/dL Normal 5 - 21 mg/dL [facility] [place] Remisol Urea nitrogen/Creatinine [Mass ratio] 13 mg/mg Normal 10 - 20 [facility] [place] Remisol HEMATOLOGYOrdered By: SYSTEM SYSTEM on 04-17-2022 Basophils/100 WBC (Bld) 2.1 % High 0.0 - 2.0 % [facility] [place] HemeAutoSS Basophils/Leukocytes Auto (Bld) [Pure # fraction] [...] PM) Normal Negative [facility] UA Auto SS [place].plasma/[place] .RBC (Bld) [Mass ratio] 0-3 /HPF Normal [...] [facility] UA Auto SS Urobilinogen Qn (U) 0.4472408 {Rolan'U}/dL Normal 0.0 - 1.0 EU/dL [facility] [place] UA Auto SS WBC Auto Ql (U) Negative (04/17/22 12:00 PM) Normal Negative [facility] [place] UA Auto SS WBC LM.HPF (Urine sed) [#/Area] 0-5 /HPF Normal 0-5/HPF [facility] [place] UA Auto SS CBC AUTO DIFFon 04-10-2022 BASO # 0.1 103/ul Normal 0.0-0.1 [facility] Comment on above: Performed By: #### C BC #### [facility] [address] [address] [address] Stevie Torres Basophils/100 WBC (Bld) 1.2 % Normal 0.2-2.0 [facility] Comment on above: Performed By: #### C BC #### [facility] [address] [address] [address] Stevie Torres EO # 0.2 103/ul Normal 0.0-0.7 [facility] Comment on above: Performed By: #### C BC #### [facility] [address] [address] [address] Stevie Torres Eosinophils/100 WBC (Bld) 2.2 % Normal 0.9-7.0 [facility] Comment on above: Performed By: #### C BC #### [facility] [address] [address] [address] Stevie Torres Erythrocyte distribution width (RBC) [Ratio] 11.9 % Normal 11.0-15.0 [facility] Comment on above: Performed By: #### C BC #### [facility] [address] [place] [address] Dr. Stevie Torres Hematocrit (Bld) [Volume fraction] 34.6 % Critically low 36.0-48.0 [facility] Comment on above: Performed By: #### C BC #### [facility] [address] [place] [address] Dr. Stevie Torres Hemoglobin (Bld) [Mass/Vol] 11.1 g/dL Critically low 12.0-16.0 [facility] Comment on above: Performed By: #### C BC #### [facility] [address] [place] [address] Dr. Stevie Torres IG # 0.03 10e3/ul Normal 0.00-0.03 [facility] Comment on above: Performed By: #### C BC #### [facility] [address] [place] [address] Dr. Stevie Torres IG % 0.4 % Normal 0.0-0.5 [facility] Comment on above: Performed By: #### C BC #### [facility] [address] [place] [address] Dr. Stevie Torres LYMPH # 1.7 103/ul Normal 1.2-3.8 [facility] Comment on above: Performed By: #### C BC #### [facility] [address] [place] [address] Dr. Stevie Torres Lymphocytes/100 WBC (Bld) 20.6 % Normal 20.5-60.0 [facility] Comment on above: Performed By: #### C BC #### [facility] [address] [place] [address] Dr. Stevie Torres MANUAL DIFF REQ NO Normal [facility] Comment on above: Performed By: #### C BC #### [facility] [address] [place] [address] Dr. Stevie Torres MCH (RBC) [Entitic mass] 31.1 pg Normal 26.7-34.0 [facility] Comment on above: Performed By: #### C BC #### [facility] [address] [place] [address] Dr. Stevie Torres MCHC (RBC) [Mass/Vol] 32.1 g/dL Normal 29.9-35.2 [facility] Comment on above: Performed By: #### C BC #### [facility] [address] [place] [address] Dr. Stevie Torres MCV (RBC) [Entitic vol] 96.9 fL Normal 81.0-99.0 [facility] Comment on above: Performed By: #### C BC #### [facility] [address] [place] [address] Dr. Stevie Torres MONO # 0.9 103/ul Critically high 0.3-0.8 [facility] Comment on above: Performed By: #### C BC #### [facility] [address] [place] [address] Dr. Stevie Torres Monocytes/100 WBC (Bld) 10.4 % Normal 1.7-12.0 [facility] Comment on above: Performed By: #### C BC #### [facility] [address] [place] [address] Dr. Stevie Torres NEUT # 5.5 103/ul Normal 1.4-6.5 [facility] Comment on above: Performed By: #### C BC #### [facility] [address] [place] [address] Dr. Stevie Torres Neutrophils/100 WBC (Bld) 65.2 % Normal 43.0-75.0 [facility] Comment on above: Performed By: #### C BC #### [facility] [address] [place] [address] Dr. Stevie Torres Platelet mean volume (Bld) [Entitic vol] 8.8 fL Critically low 9.5-13.5 [facility] Comment on above: Performed By: #### C BC #### [facility] [address] [place] [address] Dr. Stevie Torres PLT 221 103/ul Normal 150-450 [facility] Comment on above: Performed By: #### C BC #### [facility] [address] [place] [address] Dr. Stevie Torres RBC 3.57 106/ul Critically low 4.20-5.40 [facility] Comment on above: Performed By: #### C BC #### [facility] [address] [place] [address] Dr. Stevie Torres WBC 8.4 103/ul Normal 4.0-11.0 [facility] Comment on above: Performed By: #### C BC #### [facility] [address] [place] [address] Dr. Stevie Torres CULTURE URINEon 04-10-2022 CULTURE URINE Culture Observations : LIGHT GROWTH OF MIXED GENITAL MANUEL. NO POTENTIAL PATHOGENS SEEN. Normal [facility] Comment on above: Performed By: #### FRITZ LOVELLRO #### [facility] [address] [place] [address] Dr. Stevie Torres ER URINE PROFILEon 2 Bilirubin Ql (U) Unable to perform te sting due to color interference. Abnormal NEGATIVE [facility] Comment on above: Performed By: #### FRITZ LOVELLRO #### [facility] [address] [place] [address] Dr. Stevie Torres Clarity (U) CLEAR Normal CLEAR [facility] Comment on above: Performed By: #### FRITZ LOVELLRO #### [facility] [address] [place] [address] Dr. Stevie Torres Color (U) DK. ORANGE Abnormal YELLOW [facility] Comment on above: Performed By: #### FRITZ LOVELLRO #### [facility] [address] [place] [address] Dr. Stevie Torres ERUAHD A micrscopic examina tion will be performed if indicated. Normal [facility] Comment on above: Performed By: #### FRITZ LOVELLRO #### [facility] [address] [place] [address] Dr. Stevie Torres Glucose Ql (U) Unable to perform te sting due to color interference. Abnormal NEGATIVE [facility] Comment on above: Performed By: #### FRITZ LOVELLRO #### [facility] [address] [place] [address] Dr. Stevie Torres Hemoglobin Ql (U) Unable to perform te sting due to color interference. Abnormal NEGATIVE [facility] Comment on above: Performed By: #### FRITZ LOVELLRO #### [facility] [address] [place] [address] Dr. Stevie Torres Ketones Ql (U) Unable to perform te sting due to color interference. Abnormal NEGATIVE [facility] Comment on above: Performed By: #### FRITZ LOVELLRO #### [facility] [address] [place] [address] Dr. Stevie Torres LEUKOCYTES Unable to perform te sting due to color interference. Abnormal NEGATIVE [facility] Comment on above: Performed By: #### TAMMIE LOVELL #### [facility] [address] [place] [address] Dr. Stevie Torres Nitrite Ql (U) Unable to perform te sting due to color interference. Abnormal NEGATIVE [facility] Comment on above: Performed By: #### FRITZ LOVELLRO #### [facility] [address] [place] [address] Dr. Stevie Torres pH Unable to perform te sting due to color interference. Abnormal 5-9 [facility] Comment on above: Performed By: #### TAMMIE LOVELL #### [facility] [address] [place] [address] Dr. Stevie Torres SPEC GRAVITY 1.020 Normal 1.005-<=1. 025 [facility] Comment on above: Performed By: #### FRITZ LOVELLRO #### [facility] [address] [place] [address] Dr. Stevie Torres UA PROTEIN Unable to perform te sting due to color interference. Normal NEGATIVE/ TRACE [facility] Comment on above: Performed By: #### FRITZ LOVELLRO #### [facility] [address] [place] [address] Dr. Stevie Torres UR MICRO IND INDICATED Normal [facility] Comment on above: Performed By: #### FRITZ LOVELLRO #### [facility] [address] [place] [address] Dr. Stevie Torres UROBILINOGEN Unable to perform te sting due to color interference. Normal 0.2 - 1.0 [facility] Comment on above: Performed By: #### FRITZ LOVELLRO #### [facility] [address] [place] [address] Dr. Stevie Torres PROF CHEM 8 (BAS METB)on Anion gap [Moles/Vol] 6.6 mmol/L Normal [facility] Comment on above: Performed By: #### C BC #### [facility] [address] [address] [address] Stevie Torres Calcium [Mass/Vol] 8.9 mg/dL Normal 8.5-10.1 [facility] Comment on above: Performed By: #### C BC #### [facility] [address] [address] [address] Stevie Torres Chloride [Moles/Vol] 97 mmol/L Critically low 98-107 [facility] Comment on above: Performed By: #### C BC #### [facility] [address] [address] [address] Stevie Torres CO2 [Moles/Vol] 32.3 mmol/L Critically high 21.0-32.0 [facility] Comment on above: Performed By: #### C BC #### [facility] [address] [place] [address] Dr. Stevie Torres Creatinine [Mass/Vol] 1.30 mg/dL Critically high 0.55-1.02 [facility] Comment on above: Performed By: #### C BC #### [facility] [address] [place] [address] Dr. Stevie Torres EGFR-AF BRITISH 49 mL/min/1.73m2 Critically low >=60 [facility] Comment on above: Performed By: #### C BC #### [facility] [address] [place] [address] Dr. Stevie Torres EGFR-NON AF BRITISH 40 mL/min/1.73m2 Critically low >=60 [facility] Comment on above: Performed By: #### C BC #### [facility] [address] [place] [address] Dr. Stevie Torres Glucose [Mass/Vol] 102 mg/dL Normal 74-106 [facility] Comment on above: Performed By: #### C BC #### [facility] [address] [place] [address] Dr. Stevie Torres Potassium [Moles/Vol] 3.9 mmol/L Normal 3.5-5.1 [facility] Comment on above: Performed By: #### C BC #### [facility] [address] [place] [address] Dr. Stevie Torres Sodium [Moles/Vol] 132 mmol/L Critically low 136-145 [facility] Comment on above: Performed By: #### C BC #### [facility] [address] [place] [address] Dr. Stevie Torres Urea nitrogen [Mass/Vol] 30.0 mg/dL Critically high 7.0-18.0 [facility] Comment on above: Performed By: #### C BC #### [facility] [address] [place] [address] Dr. Stevie Torres Urea nitrogen/Creatinine [Mass ratio] 23.1 mg/mg Normal [facility] Comment on above: Performed By: #### C BC #### [facility] [address] [place] [address] Dr. Stevie Torres URINE MICROSCOPIC ONLYon BACTERIA SMALL Abnormal NONE SEEN [facility] Comment on above: Performed By: #### Sarahi ORONA UMICRO #### [facility] [address] [place] [address] Dr. Stevie Torres Bacteria identified Cx Nom (U) INDICATED Normal [facility] Comment on above: Performed By: #### Sarahi ORONA UMICRO #### [facility] [address] [place] [address] Dr. Stevie Torres CAST NONE SEEN Normal NONE SEEN [facility] Comment on above: Performed By: #### Sarahi ORONA UMICRO #### [facility] [address] [place] [address] Dr. Stevie Torres Crystals LM Nom (Urine sed) NONE SEEN Normal NONE SEEN [facility] Comment on above: Performed By: #### Sarahi ORONA UMICRO #### [facility] [address] [place] [address] Dr. Stevie Torres Epithelial cells LM Ql (Urine sed) FEW Abnormal NONE SEEN /RARE [facility] Comment on above: Performed By: #### Sarahi ORONA UMICRO #### [facility] [address] [place] [address] Dr. Stevie Torres MUCOUS NONE SEEN Normal NONE SEEN [facility] Comment on above: Performed By: #### E RUR, UMICRO #### [facility] [address] [place], [place] [address] Dr. Stevie Torres RBC 10-20 Abnormal 0-2 [facility] Comment on above: Performed By: #### E RUR, UMICRO #### [facility] [address] [place], [place] [address] Dr. Stevie Torres WBC 2-5 Abnormal NONE SEEN [facility] Comment on above: Performed By: #### E RUR, UMICRO #### [facility] [address] [place], [place] [address] Dr. Stevie Marie 04-01-2022 CNPLukas Telephone (UROLLN) -- MAEGAN DYE ([id number]) 1950 F Date Time Provider Department 04/01/22 [...] PM Signed Patient was transferred to this senior writer, screaming in the telephone saying that she needs more catheters. She stated in a previous phone call that the last batch of catheters were stolen out of her car. Reached out to [address] [place] [phone] to see what needs to take place for catheters to be delivered to patient at this time. Patients son will be coming to [facility] to merchandise pickup/receiving associate sample catheters, until patient receives hers again. [...] Status:Closed by ADRIANE FISCHER on 04/01/22 Normal [facility] DRUG SCREEN RAPID (URINE)on 02-18-2022 AMP Negative Normal NEGATIVE [facility] Comment on above: Performed By: #### E TAMMIE ORONA #### [facility] [address] [address] [address] Stevie Torres [facility] Negative Normal NEGATIVE [facility] Comment on above: Performed By: #### E TAMMIE ORONA #### [facility] [address] [place], [place] [address] Dr. Stevie Torres [facility] Negative Normal NEGATIVE [facility] Comment on above: Performed By: #### Sarahi ORONA UMICRO #### [facility] [address] [address] [address] Stevie Torres BZO Positive Abnormal NEGATIVE [facility] Comment on above: Performed By: #### E ADWOA UMICRO #### [facility] [address] [address] [address] Stevie Torres JOHN Negative Normal NEGATIVE [facility] Comment on above: Performed By: #### E ADWOA UMICRO #### [facility] [address] [address] [address] Stevie Torres CUT-OFFS SEE BELOW Normal [facility] Comment on above: Result Comment: AMP (Amphetamine): 500ng/mL, BAR (Barbituates): 200 ng/mL, BZO (Benzodiazepines): 150 ng/mL, BUP (Buprenorphine): 10 ng/mL, JOHN (Cocaine): 150 ng/mL, mAMP (Methamphetamine): 500 ng/mL, MTD (Methadone): 200 ng/mL, OPI (Opiates): 100 ng/mL, OXY (Oxycodone): 100 ng/mL, PCP (Phencyclidine): 25 ng/mL, PPX (Propoxyphene): 300 ng/mL, THC (Cannabinoids): 50 ng/mL, TCA (Trycyclic Antidepressants): 300 ng/mL Performed By: #### MARY LOVELLICRO #### [facility] [address] [place] [address] Dr. Stevie Torres DRUG CUT HEADER DRUG CLASS TEST SYST EM CUT-OFF CONCENTRATIONS ARE FOLLOWS: Normal [facility] Comment on above: Performed By: #### Sarahi ORONA UMICRO #### [facility] [address] [address] [address] Stevie Torres mAMP Negative Normal NEGATIVE [facility] Comment on above: Performed By: #### E ADWOA UMICRO #### [facility] [address] [address] [address] Stevie Torres MTD Negative Normal NEGATIVE [facility] Comment on above: Performed By: #### Sarahi ORONA UMICRO #### [facility] [address] [place] [address] Dr. Stevie Torres OPI Positive Abnormal NEGATIVE [facility] Comment on above: Performed By: #### E ADWOA UMICRO #### [facility] [address] [place] [address] Dr. Stevie Torres OXY Negative Normal NEGATIVE [facility] Comment on above: Performed By: #### E ADWOA UMICRO #### [facility] [address] [place] [address] Dr. Stevie Torres PCP Negative Normal NEGATIVE [facility] Comment on above: Performed By: #### E ADWOA UMICRO #### [facility] [address] [place] [address] Dr. Stevie Torres PPX Negative Normal NEGATIVE [facility] Comment on above: Performed By: #### E ADWOA UMICRO #### [facility] [address] [place] [address] Dr. Stevie Torres TCA Negative Normal NEGATIVE [facility] Comment on above: Performed By: #### Sarahi ORONA UMICRO #### [facility] [address] [place] [address] Dr. Stevie Torres THC Negative Normal NEGATIVE [facility] Comment on above: Performed By: #### E ADWOA, UMICRO #### [facility] [address] [place] [address] Dr. Stevie Torres CHEMISTRYOrdered By: SYSTEM SYSTEM [...] 7.9 E9/L Normal 4.0 - 11.0 E9/L [facility] [place] HemeAutoSS Reference Laboratory Testing Ordered By: Klaudia Holland on 02-17-2022 Test Code 0000 Invalid Interpretation Code [facility] [place] SendOuts Test Name urine drug scre Invalid Interpretation Code [facility] [place] [facility] URINALYSISOrdered By: Maggie Matthews on 02-13-2022 Bilirubin Ql (U) Negative (02/13/22 12:06 PM) Normal Negative [facility] UA Auto SS Clarity (U) Clear (02/13/22 12:06 PM) Normal Clear [facility] UA Auto SS Color (U) Yellow (02/13/22 [...] PM) Normal Negative [facility] UA Auto SS [place].plasma/[place] .RBC (Bld) [Mass ratio] 0-3 /HPF Normal [...] [facility] UA Auto SS Urobilinogen Qn (U) 0.9423260 {Rolan'U}/dL Normal 0.0 - 1.0 EU/dL [facility] UA Auto SS WBC Auto Ql (U) Negative (02/13/22 12:06 PM) Normal Negative [facility] UA Auto SS WBC LM.HPF (Urine sed) [#/Area] 0-5 /HPF Normal 0-5/HPF [facility] UA Auto SS Frank 02-11-2022 CNPLukas Telephone (UROLAV) -- MAEGAN DYE ([id number]) 1950 F Date Time Provider Department 02/11/22 QUYNH RAINES UROLAJavan During your visit today, we recorded the following information about you: Sergio Guevara RN 02/11/2022 4:33 PM Signed Patient calling States she needs more Self Catheters Gets them from [phone] (?) States she used all of the Self Cath Catheters that she received from nurse office training Not sure how to get more Self Catheters, etc? Requesting call back maral please Call patient CELL [phone] Leave Detailed messages Anabelle Vasquez RN 02/11/2022 4:57 PM Signed Spoke to patient. She will contact [facility] [employer], has bright green flyer with the number on it to call if she hasn't been contacted. We reached out to rep from [address] [place] [address]. Told patient she can come into office for more catheters. Her son is not able to come in for her to get them. Will touch base with patient tomorrow. 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 Carried out orders [...] Yes NO (more content not included)... Normal [facility] CHEMISTRYOrdered By: SYSTEM SYSTEM on 02-05-2022 Sodium [Moles/Vol] 132 mmol/L Low 135 - 145 mmol/L [facility] Remisol Sodium [Moles/Vol] 132 mmol/L Low 135 - 145 mmol/L [facility] Remisol CHEMISTRYOrdered By: SYSTEM SYSTEM on 02-04-2022 Sodium [Moles/Vol] 131 mmol/L Low 135 - 145 mmol/L [facility] Remisol Anion gap [Moles/Vol] 12 mmol/L Normal 6 - 16 mEq/L [facility] Remisol Calcium [Mass/Vol] 8.6 mg/dL Low 8.9 [...] 49 mL/min/1.73 m2 Low >=59mL/min /1.73 m2 [facility] [place] Chem S Glucose [Mass/Vol] 104 mg/dL Normal [...] 53 mL/min/1.73 m2 Low >=59mL/min /1.73 m2 [facility] [place] Chem S GFR/1.73 sq M.predicted among non-blacks MDRD (S/P/Bld) [Vol rate/Area] 44 mL/min/1.73 m2 Low >=59mL/min /1.73 m2 [facility] [place] Chem S Globulin (S) [Mass/Vol] 2.7 g/dL [...] 256 mosm/kg Low 275 - 295 mOsm/kg [facility] [place] [place] Man UA SS U Osmolality 125 mOsm/kg Normal 50 - 1400 mOsm/kg [facility] [place] Man UA SS CHEMISTRYOrdered By: Lilibeth Garcia [...] AM) Normal Negative [facility] UA Auto SS [place].plasma/[place] .RBC (Bld) [Mass ratio] 0-3 /HPF Normal [...] [facility] UA Auto SS Urobilinogen Qn (U) 0.1283776 {Rolan'U}/dL Normal 0.0 - 1.0 EU/dL [facility] [...] PM) Normal Negative [facility] UA Auto SS [place].plasma/[place] .RBC (Bld) [Mass ratio] 0-3 /HPF Normal [...] [facility] UA Auto SS Urobilinogen Qn (U) 0.5442794 {Rolan'U}/dL Normal 0.0 - 1.0 EU/dL [facility] [...] AM) Normal Negative [facility] UA Auto SS [place].plasma/[place] .RBC (Bld) [Mass ratio] 4-20 /HPF Normal 0-3/HPF [facility] UA Auto SS Mucus Ql (Urine sed) Trace (01/14/22 10:10 AM) Normal [facility] [place] UA Auto SS Nitrite Ql (U) Negative (01/14/22 10:10 AM) Normal Negative [facility] [place] UA Auto SS pH (U) 7.0 *NA* (01/14/22 10:10 AM) Invalid Interpretation Code 5.0 - 9.0 [facility] [place] UA Auto SS Protein (U) [Mass/Vol] Negative (01/14/22 10:10 AM) Normal Negative [facility] [place] UA Auto SS Specific gravity (U) [Rel density] <=1.005 *NA* (01/14/22 10:10 AM) Invalid Interpretation Code 1.005 - 1.030 [facility] [place] UA Auto SS UA Spec Desc Catheter (01/14/22 10:10 AM) Normal [facility] [place] UA Auto SS Urobilinogen Qn (U) 0.6972162 {Rolan'U}/dL Normal 0.0 - 1.0 EU/dL [facility] [place] [place] UA Auto SS WBC Auto Ql (U) 3+ *ABN* (01/14/22 10:10 AM) Invalid Interpretation Code Negative [facility] [place] UA Auto SS WBC LM.HPF (Urine sed) [#/Area] 6-15 /HPF Invalid Interpretation Code 0-5/HPF [facility] [place] UA Auto SS CHEMISTRYOrdered By: SYSTEM SYSTEM on 12-17-2021 Anion gap [Moles/Vol] 9 mmol/L Normal 6 - 16 mEq/L [facility] [place] Remisol Calcium [Mass/Vol] 8.9 mg/dL Normal 8.9 - 11. 1 mg/dL [facility] Remisol Chloride [Moles/Vol] 95 mmol/L Low 101 - 1 11 mmol/L [facility] Remisol CO2 [Moles/Vol] 29 mmol/L Normal 21 - 31 mmol/L [facility] Remisol Creatinine [Mass/Vol] 1.0 mg/dL Normal 0.5 - 1.3 mg/dL [facility] Remisol GFR/1.73 sq M.predicted among blacks MDRD (S/P/Bld) [Vol rate/Area] mL/min/1.73 m2 Normal >=59mL/min /1.73 m2 [facility] [place] Chem S GFR/1.73 sq M.predicted among non-blacks MDRD (S/P/Bld) [Vol rate/Area] 54 mL/min/1.73 m2 Low >=59mL/min /1.73 m2 [facility] [place] Chem S Glucose [Mass/Vol] 102 mg/dL Normal 55 - 199 mg/dL [facility] Remisol Potassium [Moles/Vol] 4.1 mmol/L Normal 3.5 - 5.3 mmol/L [facility] Remisol Sodium [Moles/Vol] 129 mmol/L Low 135 - 145 mmol/L [facility] Remisol Urea nitrogen [Mass/Vol] 8 mg/dL Normal 5 - 21 mg/dL [facility] [place] Remisol Urea nitrogen/Creatinine [Mass ratio] 8 mg/mg Low 10 - 20 [facility] [place] Remisol HEMATOLOGYOrdered By: SYSTEM SYSTEM on 12-17-2021 [...] AM) Normal Negative [facility] UA Auto SS [place].plasma/[place] .RBC (Bld) [Mass ratio] 0-3 /HPF Normal [...] [facility] UA Auto SS Urobilinogen Qn (U) 0.9900472 {Rolan'U}/dL Normal 0.0 - 1.0 EU/dL [facility] [...] PM) Normal Negative [facility] UA Auto SS [place].plasma/[place] .RBC (Bld) [Mass ratio] 0-3 /HPF Normal [...] [facility] UA Auto SS Urobilinogen Qn (U) 0.3983671 {Rolan'U}/dL Normal 0.0 - 1.0 EU/dL [facility] [...] (U) Negative (12/14/21 9:08 AM) Normal Negative [facility] UA Auto SS Ketones (U) [Mass/Vol] Negative (12/14/21 9:08 AM) Normal Negative [facility] UA Auto SS [place].plasma/[place] .RBC (Bld) [Mass ratio] 0-3 /HPF Normal 0-3/HPF [facility] UA Auto SS Nitrite Ql (U) Negative (12/14/21 9:08 AM) Normal Negative [facility] UA Auto SS pH (U) 7.5 *NA* (12/14/21 9:08 AM) Invalid Interpretation Code 5.0 - 9.0 [facility] [place] UA Auto SS Protein (U) [Mass/Vol] Negative (12/14/21 9:08 AM) Normal Negative [facility] [place] [place] UA Auto SS Specific gravity (U) [Rel density] 1.015 *NA* (12/14/21 9:08 AM) Invalid Interpretation Code 1.005 - 1.030 [facility] [place] UA Auto SS UA Spec Desc Clean Catch (12/14/21 9:08 AM) Normal [facility] [place] [place] UA Auto SS Urobilinogen Qn (U) 0.2924707 {Rolan'U}/dL Normal 0.0 - 1.0 EU/dL [facility] [place] [place] UA Auto SS WBC Auto Ql (U) Negative (12/14/21 9:08 AM) Normal Negative [facility] [place] UA Auto SS WBC LM.HPF (Urine sed) [#/Area] 0-5 /HPF Normal 0-5/HPF [facility] [place] UA Auto SS URINE CULTUREon 12-06-2021 Bacteria identified Cx Nom (U) No growth (<1,000 CFU/ml) [facility] Urinalysis complete panel (U )on 12-05-2021 Bilirubin Ql (U) Negative Negative [facility] Clarity (Unsp spec) Clear Clear Nikos [facility] Color (U) Dark Latasha Abnormal Yellow [facility] Glucose Test strip (U) [Mass/Vol] Negative Negative [facility] Hemoglobin Ql (U) Negative Negative [facility] Ketones Ql (U) Negative Negative [facility] Leukocyte esterase Test strip Ql (U) Negative Negative [facility] Nitrite Ql (U) Positive Abnormal Negative [facility] pH (U) 7.0 [pH] 5.0 - 8.0 [facility] Protein (U) [Mass/Vol] Negative Negative Cl [facility] RBC LM.HPF (Urine sed) [#/Area] 0-3 /HPF 0-3 /HPF [facility] Specific gravity (U) [Rel density] 1.006 1.005 - 1.030 [facility] Urobilinogen Ql (U) 2+ Abnormal Negative [facility] WBC LM.HPF (Urine sed) [#/Area] 0-5 /HPF 0-5 /HPF [facility] CULTURE URINEon 12-03-2021 CULTURE URINE Culture Observations : NO GROWTH. Normal [facility] Comment on above: Performed By: #### Sarahi ORONA UMICRO #### [facility] [address] [place] [address] Dr. Stevie Torres ER URINE PROFILEon 2 Bilirubin Ql (U) Negative Normal NEGATIVE [facility] Comment on above: Performed By: #### Sarahi ORONA UMICRO #### [facility] [address] [place] [address] Dr. Stevie Torres Clarity (U) CLEAR Normal CLEAR [facility] Comment on above: Performed By: #### Sarahi ORONA UMICRO #### [facility] [address] [place] [address] Dr. Stevie Torres Color (U) DK. ORANGE Abnormal YELLOW [facility] Comment on above: Performed By: #### Sarahi ORONA UMICRO #### [facility] [address] [place] [address] Dr. Stevie Torres ERUAHD A micrscopic examina tion will be performed if indicated. Normal [facility] Comment on above: Performed By: #### Sarahi ORONA UMICRO #### [facility] [address] [place] [address] Dr. Stevie Torres Glucose Ql (U) 100 mg/dl Abnormal NEGATIVE [facility] Comment on above: Performed By: #### TAMMIE LOVELL #### [facility] [address] [place] [address] Dr. Stevie Torres Hemoglobin Ql (U) SMALL Abnormal NEGATIVE [facility] Comment on above: Performed By: #### FRITZ LOVELLRO #### [facility] [address] [place] [address] Dr. Stevie Torres Ketones Ql (U) Negative Normal NEGATIVE [facility] Comment on above: Performed By: #### TAMMIE LOVELL #### [facility] [address] [place] [address] Dr. Stevie Torres LEUKOCYTES Negative Normal NEGATIVE [facility] Comment on above: Performed By: #### FRITZ LOVELLRO #### [facility] [address] [place] [address] Dr. Stevie Torres Nitrite Ql (U) Positive Abnormal NEGATIVE [facility] Comment on above: Performed By: #### TAMMIE LOVELL #### [facility] [address] [place] [address] Dr. Stevie Torres pH (U) 7.0 [pH] Normal 5-9 [facility] Comment on above: Performed By: #### TAMMIE LOVELL #### [facility] [address] [place] [address] Dr. Stevie Torres SPEC GRAVITY <=1.005 Abnormal 1.005-<=1. 025 [facility] Comment on above: Performed By: #### TAMMIE LOVELL #### [facility] [address] [place] [address] Dr. Stevie Torres UA PROTEIN Negative Normal NEGATIVE/ TRACE [facility] Comment on above: Performed By: #### TAMMIE LOVELL #### [facility] [address] [place] [address] Dr. Stevie Torres UR MICRO IND INDICATED Normal [facility] Comment on above: Performed By: #### TAMMIE LOVELL #### [facility] [address] [place] [address] Dr. Stevie Torres Urobilinogen Qn (U) 1.0 {Rolan'U}/dL Normal 0.2 - 1. 0 [facility] Comment on above: Performed By: #### E WISAMR UMICRO #### [facility] [address] [place] [address] Dr. Stevie Torres URINE MICROSCOPIC ONLYon BACTERIA TRACE Abnormal NONE SEEN [facility] Comment on above: Performed By: #### E RUR, UMICRO #### [facility] [address] [place] [address] Dr. Stevie Torres Bacteria identified Cx Nom (U) INDICATED Normal [facility] Comment on above: Performed By: #### E RUR, UMICRO #### [facility] [address] [place] [address] Dr. Stevie Torres CAST NONE SEEN Normal NONE SEEN [facility] Comment on above: Performed By: #### E RUYesenia, UMICRO #### [facility] [address] [place] [address] Dr. Stevie Torres Crystals LM Nom (Urine sed) NONE SEEN Normal NONE SEEN [facility] Comment on above: Performed By: #### E RUR UMICRO #### [facility] [address] [place] [address] Dr. Stevie Torres Epithelial cells LM Ql (Urine sed) FEW Abnormal NONE SEEN /RARE [facility] Comment on above: Performed By: #### E ADWOA UMICRO #### [facility] [address] [place] [address] Dr. Stevie Torres MUCOUS NONE SEEN Normal NONE SEEN [facility] Comment on above: Performed By: #### E RUR, UMICRO #### [facility] [address] [place] [address] Dr. Stevie Torres RBC 0-2 Normal 0-2 [facility] Comment on above: Performed By: #### E RUR, UMICRO #### [facility] [address] [place] [address] Dr. Stevie Torres WBC NONE SEEN Normal NONE SEEN [facility] Comment on above: Performed By: #### E RUR, UMICRO #### [facility] [address] [address] [address] Stevie Torres URINALYSISOrdered By: Kris will on 11-21-2021 Bilirubin Ql (U) Negative (11/21/21 8:15 PM) Normal Negative [facility] UA Auto SS Clarity (U) Clear (11/21/21 8:15 PM) Normal Clear [facility] UA Auto SS Color (U) [place] *ABN* (11/21/21 8:15 PM) Invalid Interpretation Code [...] PM) Normal Negative [facility] UA Auto SS [place].plasma/[place] .RBC (Bld) [Mass ratio] 0-3 /HPF Normal [...] [facility] UA Auto SS Urobilinogen Qn (U) 4.3761974 {Rolan'U}/dL Inv alid Interpretation Code 0.0 - [...] Clear [facility] UA Auto SS Color (U) [place] *ABN* (11/16/21 3:42 PM) Invalid Interpretation Code [...] PM) Normal Negative [facility] UA Auto SS [place].plasma/[place] .RBC (Bld) [Mass ratio] 0-3 /HPF Normal [...] [facility] UA Auto SS Urobilinogen Qn (U) 1.4622270 {Rolan'U}/dL Normal 0.0 - 1.0 EU/dL FT [...] 53 mL/min/1.73 m2 Low >=59mL/min /1.73 m2 [facility] [place] Chem S GFR/1.73 sq M.predicted among non-blacks MDRD (S/P/Bld) [Vol rate/Area] 44 mL/min/1.73 m2 Low >=59mL/min /1.73 m2 [facility] [place] Chem S Glucose [Mass/Vol] 118 mg/dL Normal [...] 106 mg/dL High 55 - 99 mg/dL [facility] [place] POC Subsection Comment on above: Result Comment: Christina perea RN/ POC Device SN [id number] Invalid Interpretation Code FT POC Subsection POC User ID [id number] Invalid Interpretation Code [facility] [place] POC Subsection POC Username EMETERIO STOCK Invalid Interpretation Code [facility] [place] POC Subsection HEMATOLOGYOrdered By: SYSTEM SYSTEM on [...] Clear [facility] UA Auto SS Color (U) [place] *ABN* (11/08/21 5:33 PM) Invalid Interpretation Code [...] PM) Normal Negative [facility] UA Auto SS [place].plasma/[place] .RBC (Bld) [Mass ratio] 0-3 /HPF Normal [...] [facility] UA Auto SS Urobilinogen Qn (U) 2.8390070 {Rolan'U}/dL Inv alid Interpretation Code 0.0 - [...] PM) Normal Negative [facility] UA Auto SS [place].plasma/[place] .RBC (Bld) [Mass ratio] 4-20 /HPF Normal [...] [facility] UA Auto SS Urobilinogen Qn (U) 0.3256671 {Rolan'U}/dL Normal 0.0 - 1.0 EU/dL [facility] [...] 11. 1 mg/dL [facility] Chloride [Moles/Vol] 90 mmol/L Low 101 - 1 11 mmol/L [facility] CO2 [Moles/Vol] 28 mmol/L Normal 21 - 31 mmol/L [facility] Creatinine [Mass/Vol] 1.1 mg/dL Normal 0.5 - 1.3 mg/dL [facility] GFR/1.73 sq M.predicted among blacks MDRD (S/P/Bld) [Vol rate/Area] 59 mL/min/1.73 m2 Normal >=59mL/min /1.73 m2 [facility] [place] Chem S GFR/1.73 sq M.predicted among non-blacks MDRD (S/P/Bld) [Vol rate/Area] 49 mL/min/1.73 m2 Low >=59mL/min /1.73 m2 [facility] [place] Chem S Globulin (S) [Mass/Vol] 3.1 g/dL Normal 1.4 - 4.0 gm/dL [facility] Glucose [Mass/Vol] 132 mg/dL Normal 55 - 199 mg/dL [facility] Lipase [Catalytic activity/Vol] 32 U/L Normal 13 - 58 unit/L [facility] Potassium [Moles/Vol] 3.4 mmol/L Low 3.5 - 5.3 mmol/L [facility] Protein [Mass/Vol] 7.5 g/dL Normal 6.0 - 7.8 gm/dL [facility] Sodium [Moles/Vol] 127 mmol/L Low 135 [...] AM) Normal Negative [facility] UA Auto SS [place].plasma/[place] .RBC (Bld) [Mass ratio] 0-3 /HPF Normal 0-3/HPF [facility] UA Auto SS Nitrite Ql (U) Negative (10/27/21 10:44 AM) Normal Negative [facility] [place] UA Auto SS pH (U) 8.0 *NA* (10/27/21 10:44 AM) Invalid Interpretation Code 5.0 - 9.0 [facility] Auto SS Protein (U) [Mass/Vol] Negative (10/27/21 10:44 AM) Normal Negative [facility] [place] UA Auto SS Specific gravity (U) [Rel density] 1.020 *NA* (10/27/21 10:44 AM) Invalid Interpretation Code 1.005 - 1.030 [facility] [place] UA Auto SS UA Spec Desc Clean Catch (10/27/21 10:44 AM) Normal [facility] [place] UA Auto SS Urobilinogen Qn (U) 0.5382567 {Rolan'U}/dL Normal 0.0 - 1.0 EU/dL [facility] [place] UA Auto SS WBC Auto Ql (U) Trace *ABN* (10/27/21 10:44 AM) Invalid Interpretation Code Negative [facility] [place] UA Auto SS WBC LM.HPF (Urine sed) [#/Area] 0-5 /HPF Normal 0-5/HPF [facility] [place] UA Auto SS CHEMISTRYOrdered By: SYSTEM SYSTEM [...] 44 mL/min/1.73 m2 Low >=59mL/min /1.73 m2 [facility] [place] Chem S Glucose [Mass/Vol] 98 mg/dL Normal [...] 44 mL/min/1.73 m2 Low >=59mL/min /1.73 m2 [facility] [place] Chem S Glucose [Mass/Vol] 123 mg/dL Normal 55 - 199 mg/dL [facility] Remisol Magnesium [Mass/Vol] 2.2 mg/dL Normal 1.3 - 2 .4 mg/dL [facility] Potassium [Moles/Vol] 3.6 mmol/L Normal 3.5 - 5.3 mmol/L [facility] Sodium [Moles/Vol] 130 mmol/L Low 135 - 145 mmol/L [facility] Troponin I.cardiac [Mass/Vol] 2.90 pg/mL Low 10.10 - 27.10 pg/mL [facility] Urea nitrogen [Mass/Vol] 9 mg/dL Normal 5 - 21 mg/dL [facility] Urea nitrogen/Creatinine [Mass ratio] 8 mg/mg Low 10 - 20 [facility] CHEMISTRYOrdered By: Lab ROP User on 10-23-2021 Glucose [Mass/Vol] 111 mg/dL High 55 - 99 mg/dL [facility] [place] POC Subsection Comment on above: Result Comment: Aleida steven Meter POC Device SN [id number] Invalid Interpretation Code [facility] [place] POC Subsection POC User ID [id number] Invalid Interpretation Code [facility] [place] POC Subsection POC Username VALENTINO GREGORIO Invalid Interpretation Code [facility] [place] POC Subsection COAGULATIONOrdered By: Luis Trotter on [...] Code [facility] UA Auto SS Color (U) [place] *ABN* (10/23/21 7:35 PM) Invalid Interpretation Code [...] PM) Normal Negative [facility] UA Auto SS [place].plasma/[place] .RBC (Bld) [Mass ratio] 0-3 /HPF Normal [...] [facility] UA Auto SS Urobilinogen Qn (U) 4.4795390 {Rolan'U}/dL Inv alid Interpretation Code 0.0 - [...] AM) Normal Negative [facility] UA Auto SS [place].plasma/[place] .RBC (Bld) [Mass ratio] 0-3 /HPF Normal [...] [facility] UA Auto SS Urobilinogen Qn (U) 0.6410139 {Rolan'U}/dL Normal 0.0 - 1.0 EU/dL [facility] [...] PM) Normal Negative [facility] UA Auto SS [place].plasma/[place] .RBC (Bld) [Mass ratio] 0-3 /HPF Normal [...] Spec Desc Catheter (10/03/21 10:33 PM) Normal [facility] [place] UA Auto SS Urobilinogen Qn (U) 0.4331376 {Rolan'U}/dL Normal 0.0 - 1.0 EU/dL [facility] Auto SS WBC Auto Ql (U) Trace *ABN* (10/03/21 10:33 PM) Invalid Interpretation Code Negative [facility] UA Auto SS WBC LM.HPF (Urine sed) [#/Area] 0-5 /HPF Normal 0-5/HPF [facility] Auto SS URINALYSIS, REFLEX MICROSCOP ICon 10-02-2021 Bilirubin Ql (U) Negative Negative [facility] Clarity (Unsp spec) Clear Clear [facility] Color (U) Colorless Yellow [facility] Glucose Test strip (U) [Mass/Vol] Negative Negative [facility] Hemoglobin Ql (U) Negative Negative [facility] Ketones Ql (U) Negative Negative [facility] Leukocyte esterase Test strip Ql (U) Negative Negative [facility] Nitrite Ql (U) Negative Negative [facility] pH (U) 7.0 [pH] 5.0 - 8.0 [facility] Protein (U) [Mass/Vol] Negative Negative [facility] Specific gravity (U) [Rel density] 1.005 1.005 - 1.030 [facility] Urobilinogen Ql (U) Negative Negative [facility] URINALYSISOrdered By: Nicolasa fletcher on 09-30-2021 Bilirubin Ql (U) Negative (09/30/21 9:10 PM) Normal Negative [facility] [place] UA Auto SS Clarity (U) Clear (09/30/21 [...] PM) Normal Negative [facility] UA Auto SS [place].plasma/[place] .RBC (Bld) [Mass ratio] 0-3 /HPF Normal [...] [facility] UA Auto SS Urobilinogen Qn (U) 0.3387969 {Rolan'U}/dL Normal 0.0 - 1.0 EU/dL [facility] [...] AM) Normal Negative [facility] UA Auto SS [place].plasma/[place] .RBC (Bld) [Mass ratio] 0-3 /HPF Normal [...] Spec Desc Catheter (09/17/21 9:50 AM) Normal [facility] [place] UA Auto SS Urobilinogen Qn (U) 0.6678262 {Rolan'U}/dL Normal 0.0 - 1.0 EU/dL [facility] UA Auto SS WBC Auto Ql (U) Trace *ABN* (09/17/21 9:50 AM) Invalid Interpretation Code Negative [facility] UA Auto SS WBC LM.HPF (Urine sed) [#/Area] 0-5 /HPF Normal 0-5/HPF [facility] UA Auto SS Automated erythrocytes count in urine sediment (number/area)Ordered By: King Carvajal on 09-08-2021 RBC Auto (Urine sed) [#/Area] 10-19 [HPF] [facility] Automated leukocytes count i n urine sediment (number/area)Ordered By: King Carvajal on 09-08-2021 WBC Auto (Urine sed) [#/Area] 0-1 [HPF] [facility] Basophils Auto (Bld) [#/Vol] Ordered By: King Carvajal on 09-08-2021 Basophils (Bld) [#/Vol] 0.1 10*3/uL 0.0-0.2 [facility] Basophils/100 WBC Auto (Bld) Ordered By: King Carvajal on 09-08-2021 Basophils/100 WBC (Bld) 1.1 % [facility] Bilirubin Test strip Ql (U)O rdered By: King Carvajal on 09-08-2021 Bilirubin Ql (U) Negative Negative [facility] Blood hemoglobin measurement (mass/volume)Ordered By: King Carvajal on 09-08-2021 Hemoglobin (Bld) [Mass/Vol] 12.0 g/dL 11.8-15.4 [facility] Blood leukocytes automated c ount (number/volume)Ordered By: King Carvajal on 09-08-2021 WBC (Bld) [#/Vol] 9.3 10*3/uL 4.5-11.0 [facility] Color Auto (U)Ordered By: Denton Carvajal on 09-08-2021 Color (U) Dark yellow Yellow [facility] Creatinine and Glomerular fi ltration rate.predicted panel (S/P/Bld)Ordered By: King Carvajal on 09-08-2021 Creatinine [Mass/Vol] 1.20 mg/dL 0.44-1.03 [facility] Eosinophils Auto (Bld) [#/Vo l]Ordered By: King Carvajal on 09-08-2021 Eosinophils (Bld) [#/Vol] 0.1 10*3/uL 0.0-0.45 [facility] Eosinophils/100 WBC Auto (Bl d)Ordered By: King Carvajal on 09-08-2021 Eosinophils/100 WBC (Bld) 0.9 % [facility] Erythrocyte distribution wid th Auto (RBC) [Ratio]Ordered By: King Carvajal on 09-08-2021 Erythrocyte distribution width (RBC) [Ratio] 13.1 % 11.9-15.3 [facility] Estimated glomerular filtrat ion rate (GFR) non- AmericanOrdered By: King Carvajal on 09-08-2021 GFR/1.73 sq M.predicted among non-blacks MDRD (S/P/Bld) [Vol rate/Area] 44 mL/Min [facility] Hematocrit Auto (Bld) [Volum e fraction]Ordered By: King Carvajal on 09-08-2021 Hematocrit (Bld) [Volume fraction] 36.7 % 34.0-46.4 [facility] Ketones Auto test strip (U) [Mass/Vol]Ordered By: iKng Carvajal on 09-08-2021 Ketones (U) [Mass/Vol] Negative Negative [facility] - Hematology and Cell countsOrdered By: King Carvajal on 09-08-2021 Nucleated RBC/100 WBC (Bld) [Ratio] 0.1 % 0-0.5 [facility] - UrinalysisOrder ed By: King Carvajal on 09-08-2021 Hyaline casts LM Ql (Urine sed) 0-8 [LPF] [facility] Lymphocytes Auto (Bld) [#/Vo l]Ordered By: King Carvajal on 09-08-2021 Lymphocytes (Bld) [#/Vol] 1.4 10*3/uL 1.00-4.8 [facility] Lymphocytes/100 WBC Auto (Bl d)Ordered By: King Carvajal on 09-08-2021 Lymphocytes/100 WBC (Bld) 14.7 % [facility] MCH Auto (RBC) [Entitic mass ]Ordered By: King Carvajal on 09-08-2021 MCH (RBC) [Entitic mass] 30.3 pg 24.7-34.3 [facility] MCHC Auto (RBC) [Mass/Vol]Or dered By: King Carvajal on 09-08-2021 MCHC (RBC) [Mass/Vol] 32.6 g/dL 32.0-35.0 [facility] MCV Auto (RBC) [Entitic vol] Ordered By: King Carvajal on 09-08-2021 MCV (RBC) [Entitic vol] 93.0 fL 80-100 [facility] Monocytes Auto (Bld) [#/Vol] Ordered By: King Carvajal on 09-08-2021 Monocytes (Bld) [#/Vol] 0.9 10*3/uL 0.0-0.8 [facility] Monocytes/100 WBC Auto (Bld) Ordered By: King Carvajal on 09-08-2021 Monocytes/100 WBC (Bld) 9.5 % [facility] Neutrophils Auto (Bld) [#/Vo l]Ordered By: King Carvajal on 09-08-2021 Neutrophils (Bld) [#/Vol] 6.8 10*3/uL 1.8-7.7 [facility] Neutrophils/100 WBC Auto (Bl d)Ordered By: King Carvajal on 09-08-2021 Neutrophils/100 WBC (Bld) 73.8 % [facility] Nitrite Test strip Ql (U)Ord ered By: King Carvajal on 09-08-2021 Nitrite Ql (U) Positive Negative [facility] No Panel InformationOrdered By: King Carvajal on 09-08-2021 Estimated GFR () 53 mL/Min [facility] Comment on above: GFR estimated refere nce range: According to KDOQI guidelines, <60 ml/min/1.73m2 is sufficient to diagnose a patient with chronic kidney disease. Pharmacy Creatinine Clearance (Chem 36.56 [facility] Platelet mean volume Auto (B ld) [Entitic vol]Ordered By: King Carvajal on 09-08-2021 Platelet mean volume (Bld) [Entitic vol] 7.0 fL 6.3-10.7 [facility] Platelets Auto (Bld) [#/Vol] Ordered By: King Carvajal on 09-08-2021 Platelets (Bld) [#/Vol] 280 10*3/uL 150-450 [facility] Protein Auto test strip (U) [Mass/Vol]Ordered By: King Carvajal on 09-08-2021 Protein (U) [Mass/Vol] Negative Negative [facility] RBC Auto (Bld) [#/Vol]Ordere d By: King Carvajal on 09-08-2021 RBC (Bld) [#/Vol] 3.95 10*6/uL 3.60-5.00 [facility] Serum or plasma calcium dimitris urement (mass/volume)Ordered By: King Carvajal on 09-08-2021 Calcium [Mass/Vol] 9.2 mg/dL 8.2-10.2 [facility] Serum or plasma chloride jeison surement (moles/volume)Ordered By: King Carvajal on 09-08-2021 Chloride [Moles/Vol] 91 mmol/L 95-114 [facility] Serum or plasma glucose dimitris urement (mass/volume)Ordered By: King Carvajal on 09-08-2021 Glucose [Mass/Vol] 194 mg/dL 70-100 [facility] Comment on above: ADA recommended refe rence range Random Glucose Reference Range is dependent on time and content of last meal. Glucose of more than 200 mg/dL in a nonstressed, ambulatory subject supports the diagnosis of Diabetes Mellitus. Serum or plasma potassium me asurement (moles/volume)Ordered By: King Carvajal on 09-08-2021 Potassium [Moles/Vol] 3.6 mmol/L 3.5-5.1 [facility] Serum or plasma sodium measu rement (moles/volume)Ordered By: King Carvajal on 09-08-2021 Sodium [Moles/Vol] 126 mmol/L 136-146 [facility] Serum or plasma total carbon dioxide measurement (moles/volume)Ordered By: King Carvajal on 09-08-2021 CO2 [Moles/Vol] 24.2 mmol/L 22.0-30.0 [facility] Serum or plasma urea nitroge n measurement (mass/volume)Ordered By: King Carvajal on 09-08-2021 Urea nitrogen [Mass/Vol] 5 mg/dL 9-23 [facility] Specific gravity Auto test s trip (U) [Rel density]Ordered By: King Carvajal on 09-08-2021 Specific gravity (U) [Rel density] 1.010 1.001-1.03 0 [facility] Squamous epithelial cells de tection in urine sediment by light microscopyOrdered By: King Carvajal on 09-08-2021 Epithelial cells.squamous LM Ql (Urine sed) 0-1 [HPF] [facility] URINALYSISOrdered By: Alliso n Nilesh on 09-08-2021 Bacteria LM Ql (Urine sed) Trace /HPF Normal Trace/HPF [facility] [place] UA Auto SS Bilirubin Ql (U) Negative (09/08/21 5:21 AM) Normal Negative [facility] [place] UA Auto SS Clarity (U) Clear (09/08/21 [...] AM) Normal Negative [facility] UA Auto SS [place].plasma/[place] .RBC (Bld) [Mass ratio] 0-3 /HPF Normal [...] Spec Desc Catheter (09/08/21 5:21 AM) Normal [facility] [place] UA Auto SS Urobilinogen Qn (U) 0.1097152 {Rolan'U}/dL Normal 0.0 - 1.0 EU/dL [facility] UA Auto SS WBC Auto Ql (U) Negative (09/08/21 5:21 AM) Normal Negative [facility] UA Auto SS WBC LM.HPF (Urine sed) [#/Area] 0-5 /HPF Normal 0-5/HPF [facility] UA Auto SS Urine bacteria detection by automated methodOrdered By: King Carvajal on 09-08-2021 Bacteria Auto Ql (U) None seen None Seen [facility] Urine clarity by refractomet ry automatedOrdered By: King Carvajal on 09-08-2021 Clarity Refractometry automated (U) Clear Clear [facility] Urine culture routineOrdered By: King Carvajal on 09-08-2021 Bacteria identified Cx Nom (U) No Growth 2 Days [facility] Urine glucose measurement by automated test strip (mass/volume)Ordered By: King Carvajal on 09-08-2021 Glucose Auto test strip (U) [Mass/Vol] Normal mg/dL Normal [facility] Urine hemoglobin detection b y automated test stripOrdered By: King Carvajal on 09-08-2021 Hemoglobin Auto test strip Ql (U) 1+ Negative [facility] Urine leukocyte esterase det ection by automated test stripOrdered By: King Carvajal on 09-08-2021 Leukocyte esterase Auto test strip Ql (U) 1+ Negative [facility] Urobilinogen Auto test strip (U) [Mass/Vol]Ordered By: King Carvajal on 09-08-2021 Urobilinogen (U) [Mass/Vol] Normal mg/dL Normal [facility] pH Auto test strip (U)Ordere d By: King Carvajal on 09-08-2021 pH (U) 6.0 [pH] 5.0-9.0 [facility] CHEMISTRYOrdered By: SYSTEM SYSTEM on 09-07-2021 Anion gap [Moles/Vol] 14 mmol/L Normal 6 - 16 mEq/L [facility] [place] Remisol Calcium [Mass/Vol] 9.3 mg/dL Normal 8.9 - 11. 1 mg/dL [facility] [place] Remisol Chloride [Moles/Vol] 96 mmol/L Low 101 - 1 11 mmol/L [facility] [place] Remisol CO2 [Moles/Vol] 26 mmol/L Normal 21 - 31 mmol/L [facility] [place] Remisol Creatinine [Mass/Vol] 1.1 mg/dL Normal 0.5 - 1.3 mg/dL [facility] GFR/1.73 sq M.predicted among blacks MDRD (S/P/Bld) [Vol rate/Area] 59 mL/min/1.73 m2 Normal >=59mL/min /1.73 m2 [facility] [place] Chem S GFR/1.73 sq M.predicted among non-blacks [...] 59 mL/min/1.73 m2 Normal >=59mL/min /1.73 m2 [facility] [place] Chem S GFR/1.73 sq M.predicted among non-blacks [...] 11.0 E9/L FT HemeAutoSS HEMATOLOGYOrdered By: Lilibeth Garcia on 09-07-2021 [...] HemeAutoSS LaboratoryOrdered By: Jose Smith on 09-07-2021 [place].plasma/[place] .RBC (Bld) [Mass ratio] 0-3 /HPF Normal 0-3/HPF [facility] UA Auto SS Laboratory - Chemistry and C hemistry - challengeOrdered By: Jose Smith on 09-07-2021 Urobilinogen Qn (U) 1.4197603 {Rolan'U}/dL Normal 0.0 - 1.0 EU/dL [facility] UA Auto SS Laboratory - UrinalysisOrder ed By: Jose Smith on 09-07-2021 WBC LM.HPF (Urine sed) [#/Area] 0-5 /HPF Normal 0-5/HPF [facility] UA Auto SS MICRO OTHER TESTSOrdered By: Klaudia Holland on 09-07-2021 Fecal WBC Lactoferrin Negative (09/07/21 8:10 AM) Normal Negative [facility] URINALYSISOrdered By: Jose Smith on [...] Auto SS UA Spec Desc Clean Catch (4/15/22 6:00 AM) Normal [facility] [place] UA Auto SS WBC Auto Ql (U) 1+ *ABN* (09/07/21 6:00 AM) Invalid Interpretation Code Negative [facility] [place] UA Auto SS Activated partial thrombopla stin time (aPTT) in platelet poor plasma by coagulation aOrdered By: Jaxon Buchanan on 08-07-2021 aPTT Coag (PPP) [Time] 28.9 s 25.1-36.5 [facility] Automated epithelial cells c ount in urine sediment (number/area)Ordered By: Jaxon Buchanan on 08-07-2021 Epithelial cells Auto (Urine sed) [#/Area] 0-1 [HPF] [facility] Automated erythrocytes count in urine sediment (number/area)Ordered By: Jaxon Buchanan on 08-07-2021 RBC Auto (Urine sed) [#/Area] 0-1 [HPF] [facility] Automated leukocytes count i n urine sediment (number/area)Ordered By: Jaxon Buchanan on 08-07-2021 WBC Auto (Urine sed) [#/Area] 0-1 [HPF] [facility] Basophils Auto (Bld) [#/Vol] Ordered By: Jaxon Buchanan on 08-07-2021 Basophils (Bld) [#/Vol] 0.2 10*3/uL 0.0-0.2 [facility] Basophils/100 WBC Auto (Bld) Ordered By: Jaxon Buchanan on 08-07-2021 Basophils/100 WBC (Bld) 2.7 % [facility] Bilirubin Test strip Ql (U)O rdered By: Jaxon Buchanan on 08-07-2021 Bilirubin Ql (U) See comment Negative [facility] Comment on above: Unable to obtain acc urate result due to color interference. Blood hemoglobin measurement (mass/volume)Ordered By: Jaxon Buchanan on 08-07-2021 Hemoglobin (Bld) [Mass/Vol] 10.3 g/dL 11.8-15.4 [facility] Blood leukocytes automated c ount (number/volume)Ordered By: Jaxon Buchanan on 08-07-2021 WBC (Bld) [#/Vol] 7.4 10*3/uL 4.5-11.0 [facility] Body fluid albumin measureme nt (mass/volume)Ordered By: Jaxon Buchanan on 08-07-2021 Albumin (Body fld) [Mass/Vol] 3.7 g/dL 3.2-5.5 [facility] Color Auto (U)Ordered By: Rolando Buchanan on 08-07-2021 Color (U) [place] Yellow [facility] Creatinine and Glomerular fi ltration rate.predicted panel (S/P/Bld)Ordered By: Jaxon Buchanan on 08-07-2021 Creatinine [Mass/Vol] 1.46 mg/dL 0.44-1.03 [facility] Eosinophils Auto (Bld) [#/Vo l]Ordered By: Jaxon Buchanan on 08-07-2021 Eosinophils (Bld) [#/Vol] 0.3 10*3/uL 0.0-0.45 [facility] Eosinophils/100 WBC Auto (Bl d)Ordered By: Jaxon Buchanan on 08-07-2021 Eosinophils/100 WBC (Bld) 3.4 % [facility] Erythrocyte distribution wid th Auto (RBC) [Ratio]Ordered By: Jaxon Buchanan on 08-07-2021 Erythrocyte distribution width (RBC) [Ratio] 13.8 % 11.9-15.3 [facility] Estimated glomerular filtrat ion rate (GFR) non- AmericanOrdered By: Jaxon Buchanan on 08-07-2021 GFR/1.73 sq M.predicted among non-blacks MDRD (S/P/Bld) [Vol rate/Area] 35 mL/Min [facility] Globulin Calc (S) [Mass/Vol] Ordered By: Jaxon Buchanan on 08-07-2021 Globulin (S) [Mass/Vol] 2.4 g/dL [facility] Hematocrit Auto (Bld) [Volum e fraction]Ordered By: Jaxon Buchanan on 08-07-2021 Hematocrit (Bld) [Volume fraction] 31.9 % 34.0-46.4 [facility] Ketones Auto test strip (U) [Mass/Vol]Ordered By: Jaxon Buchanan on 08-07-2021 Ketones (U) [Mass/Vol] See comment Negative [facility] Comment on above: Unable to obtain acc urate result due to color interference. Laboratory - Chemistry and C hemistry - challengeOrdered By: Jaxon Buchanan on 08-07-2021 Lipase [Catalytic activity/Vol] 49.0 U/L 22-51 [facility] Laboratory - CoagulationOrde red By: Jaxon Buchanan on 08-07-2021 PT Coag (PPP) [Time] 10.9 s 9.0-12.9 [facility] Laboratory - Hematology and Cell countsOrdered By: Jaxon Buchanan on 08-07-2021 Nucleated RBC/100 WBC (Bld) [Ratio] 0.1 % 0-0.5 [facility] Lymphocytes Auto (Bld) [#/Vo l]Ordered By: Jaxon Buchanan on 08-07-2021 Lymphocytes (Bld) [#/Vol] 1.9 10*3/uL 1.00-4.8 [facility] Lymphocytes/100 WBC Auto (Bl d)Ordered By: Jaxon Buchanan on 08-07-2021 Lymphocytes/100 WBC (Bld) 26.0 % [facility] MCH Auto (RBC) [Entitic mass ]Ordered By: Jaxon Buchanan on 08-07-2021 MCH (RBC) [Entitic mass] 29.6 pg 24.7-34.3 [facility] MCHC Auto (RBC) [Mass/Vol]Or dered By: Jaxon Buchanan on 08-07-2021 MCHC (RBC) [Mass/Vol] 32.2 g/dL 32.0-35.0 [facility] MCV Auto (RBC) [Entitic vol] Ordered By: Jaxon Buchanan on 08-07-2021 MCV (RBC) [Entitic vol] 91.9 fL 80-100 [facility] Monocytes Auto (Bld) [#/Vol] Ordered By: Jaxon Buchanan on 08-07-2021 Monocytes (Bld) [#/Vol] 0.8 10*3/uL 0.0-0.8 [facility] Monocytes/100 WBC Auto (Bld) Ordered By: Jaxon Buchanan on 08-07-2021 Monocytes/100 WBC (Bld) 10.8 % [facility] Neutrophils Auto (Bld) [#/Vo l]Ordered By: Jaxon Buchanan on 08-07-2021 Neutrophils (Bld) [#/Vol] 4.2 10*3/uL 1.8-7.7 [facility] Neutrophils/100 WBC Auto (Bl d)Ordered By: Jaxon Buchanan on 08-07-2021 Neutrophils/100 WBC (Bld) 57.1 % [facility] Nitrite Test strip Ql (U)Ord ered By: Jaxon Buchanan on 08-07-2021 Nitrite Ql (U) See comment Negative [facility] Comment on above: Unable to obtain acc urate result due to color interference. No Panel InformationOrdered By: Jaxon Buchanan on 08-07-2021 Estimated GFR () 42 mL/Min [facility] Comment on above: GFR estimated refere nce range: According to KDOQI guidelines, <60 ml/min/1.73m2 is sufficient to diagnose a patient with chronic kidney disease. Pharmacy Creatinine Clearance (Chem 27.14 [facility] Platelet mean volume Auto (B ld) [Entitic vol]Ordered By: Jaxon Buchanan on 08-07-2021 Platelet mean volume (Bld) [Entitic vol] 7.1 fL 6.3-10.7 [facility] Platelet poor plasma interna tional normalized ratio (INR) by coagulation assay (relatOrdered By: Jaxon Buchanan on 08-07-2021 INR Coag (PPP) [Relative time] 1.0 {INR} [facility] Comment on above: INR Therapeutic Rang [...] 08-07-2021 Platelets (Bld) [#/Vol] 297 10*3/uL 150-450 [facility] Protein Auto test strip (U) [Mass/Vol]Ordered By: Jaxon Buchanan on 08-07-2021 Protein (U) [Mass/Vol] See comment Negative [facility] Comment on above: Unable to obtain acc urate result due to color interference. Protein [Mass/volume] in Ser um or PlasmaOrdered By: Jaxon Buchanan on 08-07-2021 Protein [Mass/Vol] 6.1 g/dL 6.1-7.9 [facility] RBC Auto (Bld) [#/Vol]Ordere d By: Jaxon Buchanan on 08-07-2021 RBC (Bld) [#/Vol] 3.47 10*6/uL 3.60-5.00 [facility] Serum or plasma alanine hancock otransferase measurement without P-5'-P (enzymatic activiOrdered By: Jaxon Buchanan on 08-07-2021 ALT No additional P-5'-P [Catalytic activity/Vol] 14 U/L 10-60 [facility] Serum or plasma albumin/glob ulin mass ratioOrdered By: Jaxon Buchanan on 08-07-2021 Albumin/Globulin [Mass ratio] 1.5 {ratio} [facility] Serum or plasma alkaline miguel ángel sphatase measurement (enzymatic activity/volume)Ordered By: Jaxon Buchanan on 08-07-2021 ALP [Catalytic activity/Vol] 57 U/L 32-92 [facility] Serum or plasma amylase dimitris urement (enzymatic activity/volume)Ordered By: Jaxon Buchanan on 08-07-2021 Amylase [Catalytic activity/Vol] 53 U/L 28-100 [facility] Serum or plasma aspartate am inotransferase measurement (enzymatic activity/volume)Ordered By: Jaxon Buchanan on 08-07-2021 AST [Catalytic activity/Vol] 22 U/L 10-42 [facility] Serum or plasma calcium dimitris urement (mass/volume)Ordered By: Jaxon Buchanan on 08-07-2021 Calcium [Mass/Vol] 9.2 mg/dL 8.2-10.2 [facility] Serum or plasma chloride jeison surement (moles/volume)Ordered By: Jaxon Buchanan on 08-07-2021 Chloride [Moles/Vol] 93 mmol/L 95-114 [facility] Serum or plasma glucose dimitris urement (mass/volume)Ordered By: Jaxon Buchanan on 08-07-2021 Glucose [Mass/Vol] 114 mg/dL 70-100 [facility] Comment on above: ADA recommended refe rence range Random Glucose Reference Range is dependent on time and content of last meal. Glucose of more than 200 mg/dL in a nonstressed, ambulatory subject supports the diagnosis of Diabetes Mellitus. Serum or plasma potassium me asurement (moles/volume)Ordered By: Jaxon Buchanan on 08-07-2021 Potassium [Moles/Vol] 4.3 mmol/L 3.5-5.1 [facility] Serum or plasma sodium measu rement (moles/volume)Ordered By: Jaxon Buchanan on 08-07-2021 Sodium [Moles/Vol] 130 mmol/L 136-146 [facility] Serum or plasma total biliru bin measurement (mass/volume)Ordered By: Jaxon Buchanan on 08-07-2021 Bilirubin [Mass/Vol] 1.1 mg/dL 0.3-1.2 [facility] Serum or plasma total carbon dioxide measurement (moles/volume)Ordered By: Jaxon Buchanan on 08-07-2021 CO2 [Moles/Vol] 29.1 mmol/L 22.0-30.0 [facility] Serum or plasma urea nitroge n measurement (mass/volume)Ordered By: Jaxon Buchanan on 08-07-2021 Urea nitrogen [Mass/Vol] 7 mg/dL 9-23 [facility] Specific gravity Auto test s trip (U) [Rel density]Ordered By: Jaxon Buchanan on 08-07-2021 Specific gravity (U) [Rel density] 1.005 1.001-1.03 0 [facility] Troponin I.cardiac [Mass/vol ume] in Serum or Plasma by High sensitivity methodOrdered By: Jaxon Buchanan on 08-07-2021 Troponin I.cardiac High sensitivity method [Mass/Vol] 3 pg/mL 0-15 [facility] Urine bacteria detection by automated methodOrdered By: Jaxon Buchanan on 08-07-2021 Bacteria Auto Ql (U) None seen None Seen [facility] Urine clarity by refractomet ry automatedOrdered By: Jaxon Buchanan on 08-07-2021 Clarity Refractometry automated (U) Clear Clear [facility] Urine culture routineOrdered By: Jxaon Buchanan on 08-07-2021 Bacteria identified Cx Nom (U) 2 Days [facility] Urine glucose measurement by automated test strip (mass/volume)Ordered By: Jaxon Buchanan on 08-07-2021 Glucose Auto test strip (U) [Mass/Vol] See comment Normal [facility] Comment on above: Unable to obtain acc urate result due to color interference. Urine hemoglobin detection b y automated test stripOrdered By: Jaxon Buchanan on 08-07-2021 Hemoglobin Auto test strip Ql (U) See comment Negative [facility] Comment on above: Unable to obtain acc urate result due to color interference. Urine lactic acid measuremen tOrdered By: Jaxon Buchanan on 08-07-2021 Lactate (U) [Moles/Vol] 1.1 mmol/L [facility] Urine leukocyte esterase det ection by automated test stripOrdered By: Jaxon Buchanan on 08-07-2021 Leukocyte esterase Auto test strip Ql (U) See comment Negative [facility] Comment on above: Unable to obtain acc urate result due to color interference. Urobilinogen Auto test strip (U) [Mass/Vol]Ordered By: Jaxon Buchanan on 08-07-2021 Urobilinogen (U) [Mass/Vol] See comment Normal [facility] Comment on above: Unable to obtain acc urate result due to color interference. pH Auto test strip (U)Ordere d By: Jaxon Buchanan on 08-07-2021 pH (U) See comment 5.0-9.0 [facility] Comment on above: Unable to obtain acc urate result due to color interference. Automated erythrocytes count in urine sediment (number/area)Ordered By: Gloria Moss on 07-27-2021 RBC Auto (Urine sed) [#/Area] 0-1 [HPF] [facility] Automated leukocytes count i n urine sediment (number/area)Ordered By: Gloria Moss on 07-27-2021 WBC Auto (Urine sed) [#/Area] 1-2 [HPF] [facility] Bilirubin Test strip Ql (U)O rdered By: Gloria Moss on 07-27-2021 Bilirubin Ql (U) 1+ Negative [facility] Color Auto (U)Ordered By: Kota Moss on 07-27-2021 Color (U) Dark yellow Yellow [facility] Ketones Auto test strip (U) [Mass/Vol]Ordered By: Gloria Moss on 07-27-2021 Ketones (U) [Mass/Vol] Negative Negative [facility] Laboratory - UrinalysisOrder ed By: Gloria Moss on 07-27-2021 Hyaline casts LM Ql (Urine sed) 0-8 [LPF] [facility] Nitrite Test strip Ql (U)Ord ered By: Gloria Moss on 07-27-2021 Nitrite Ql (U) Positive Negative [facility] Protein Auto test strip (U) [Mass/Vol]Ordered By: Gloria Moss on 07-27-2021 Protein (U) [Mass/Vol] Negative Negative [facility] Specific gravity Auto test s trip (U) [Rel density]Ordered By: Gloria Moss on 07-27-2021 Specific gravity (U) [Rel density] 1.010 1.001-1.03 0 [facility] Squamous epithelial cells de tection in urine sediment by light microscopyOrdered By: Gloria Moss on 07-27-2021 Epithelial cells.squamous LM Ql (Urine sed) 3-4 [HPF] [facility] Urine bacteria detection by automated methodOrdered By: Gloria Moss on 07-27-2021 Bacteria Auto Ql (U) None seen None Seen [facility] Urine clarity by refractomet ry automatedOrdered By: Gloria Moss on 07-27-2021 Clarity Refractometry automated (U) Clear Clear [facility] Urine culture routineOrdered By: Gloria Moss on 07-27-2021 Bacteria identified Cx Nom (U) No Growth 2 Days [facility] Urine glucose measurement by automated test strip (mass/volume)Ordered By: Gloria Moss on 07-27-2021 Glucose Auto test strip (U) [Mass/Vol] Normal mg/dL Normal [facility] Urine hemoglobin detection b y automated test stripOrdered By: Gloria Moss on 07-27-2021 Hemoglobin Auto test strip Ql (U) Negative Negative [facility] Urine leukocyte esterase det ection by automated test stripOrdered By: Gloria Moss on 07-27-2021 Leukocyte esterase Auto test strip Ql (U) 1+ Negative [facility] Urobilinogen Auto test strip (U) [Mass/Vol]Ordered By: Gloria Moss on 07-27-2021 Urobilinogen (U) [Mass/Vol] Normal mg/dL Normal [facility] pH Auto test strip (U)Ordere d By: Gloria Moss on 07-27-2021 pH (U) 6.5 [pH] 5.0-9.0 [facility] Automated erythrocytes count in urine sediment (number/area)Ordered By: Jennifer Arreaga on 07-22-2021 RBC Auto (Urine sed) [#/Area] 3-4 [HPF] [facility] Automated leukocytes count i n urine sediment (number/area)Ordered By: Jennifer Arreaga on 07-22-2021 WBC Auto (Urine sed) [#/Area] 3-4 [HPF] [facility] Bilirubin Test strip Ql (U)O rdered By: Jennifer Arreaga on 07-22-2021 Bilirubin Ql (U) Negative Negative [facility] Color Auto (U)Ordered By: Sophia Arreaga on 07-22-2021 Color (U) Dark yellow Yellow [facility] Ketones Auto test strip (U) [Mass/Vol]Ordered By: Jennifer Arreaga on 07-22-2021 Ketones (U) [Mass/Vol] Negative Negative [facility] Laboratory - UrinalysisOrder ed By: Jennifer Arreaga on 07-22-2021 Hyaline casts LM Ql (Urine sed) 0-8 [LPF] [facility] Nitrite Test strip Ql (U)Ord ered By: Jennifer Arreaga on 07-22-2021 Nitrite Ql (U) Positive Negative [facility] Protein Auto test strip (U) [Mass/Vol]Ordered By: Jennifer Arreaga on 07-22-2021 Protein (U) [Mass/Vol] Negative Negative [facility] Specific gravity Auto test s trip (U) [Rel density]Ordered By: Jennifer Arreaga on 07-22-2021 Specific gravity (U) [Rel density] 1.011 1.001-1.03 0 [facility] Squamous epithelial cells de tection in urine sediment by light microscopyOrdered By: Jennifer Arreaga on 07-22-2021 Epithelial cells.squamous LM Ql (Urine sed) 5-9 [HPF] [facility] Urine bacteria detection by automated methodOrdered By: Jennifer Arreaga on 07-22-2021 Bacteria Auto Ql (U) None seen None Seen [facility] Urine clarity by refractomet ry automatedOrdered By: Jennifer Arreaga on 07-22-2021 Clarity Refractometry automated (U) Clear Clear [facility] Urine culture routineOrdered By: Jennifer Arreaga on 07-22-2021 Bacteria identified Cx Nom (U) No Growth 2 Days [facility] Urine glucose measurement by automated test strip (mass/volume)Ordered By: Jennifer Arreaag on 07-22-2021 Glucose Auto test strip (U) [Mass/Vol] Normal mg/dL Normal [facility] Urine hemoglobin detection b y automated test stripOrdered By: Jennifer Arreaga on 07-22-2021 Hemoglobin Auto test strip Ql (U) Negative Negative [facility] Urine leukocyte esterase det ection by automated test stripOrdered By: Jennifer Arreaga on 07-22-2021 Leukocyte esterase Auto test strip Ql (U) 1+ Negative [facility] Urobilinogen Auto test strip (U) [Mass/Vol]Ordered By: Jennifer Arreaga on 07-22-2021 Urobilinogen (U) [Mass/Vol] Normal mg/dL Normal [facility] pH Auto test strip (U)Ordere d By: Jennifer Arreaga on 07-22-2021 pH (U) 5.5 [pH] 5.0-9.0 [facility] Automated erythrocytes count in urine sediment (number/area)Ordered By: Maciej Rodriguez on 07-19-2021 RBC Auto (Urine sed) [#/Area] None seen [HPF] [facility] Automated leukocytes count i n urine sediment (number/area)Ordered By: Maciej Rodriguez on 07-19-2021 WBC Auto (Urine sed) [#/Area] None seen [HPF] [facility] Bilirubin Test strip Ql (U)O rdered By: Maciej Rodriguez on 07-19-2021 Bilirubin Ql (U) 1+ Negative [facility] Color Auto (U)Ordered By: Salvatore Rodriguez on 07-19-2021 Color (U) Dark yellow Yellow [facility] Ketones Auto test strip (U) [Mass/Vol]Ordered By: Maciej Rodriguez on 07-19-2021 Ketones (U) [Mass/Vol] Negative Negative [facility] Laboratory - UrinalysisOrder ed By: Maciej Rodriguez on 07-19-2021 Hyaline casts LM Ql (Urine sed) 0-8 [LPF] [facility] Nitrite Test strip Ql (U)Ord ered By: Maciej Rodriguez on 07-19-2021 Nitrite Ql (U) Positive Negative [facility] Protein Auto test strip (U) [Mass/Vol]Ordered By: Maciej Rodriguez on 07-19-2021 Protein (U) [Mass/Vol] Negative Negative [facility] Specific gravity Auto test s trip (U) [Rel density]Ordered By: Maciej Rodriguez on 07-19-2021 Specific gravity (U) [Rel density] 1.007 1.001-1.03 0 [facility] Squamous epithelial cells de tection in urine sediment by light microscopyOrdered By: Maciej Rodriguez on 07-19-2021 Epithelial cells.squamous LM Ql (Urine sed) 0-1 [HPF] [facility] Urine bacteria detection by automated methodOrdered By: Maciej Rodriguez on 07-19-2021 Bacteria Auto Ql (U) None seen None Seen [facility] Urine clarity by refractomet ry automatedOrdered By: Maciej Rodriguez on 07-19-2021 Clarity Refractometry automated (U) Clear Clear [facility] Urine culture routineOrdered By: Maciej Rodriguez on 07-19-2021 Bacteria identified Cx Nom (U) 2 Days [facility] Urine glucose measurement by automated test strip (mass/volume)Ordered By: Maciej Rodriguez on 07-19-2021 Glucose Auto test strip (U) [Mass/Vol] Normal mg/dL Normal [facility] Urine hemoglobin detection b y automated test stripOrdered By: Maciej Rodriguez on 07-19-2021 Hemoglobin Auto test strip Ql (U) Negative Negative [facility] Urine leukocyte esterase det ection by automated test stripOrdered By: Maciej Rodriguez on 07-19-2021 Leukocyte esterase Auto test strip Ql (U) 1+ Negative [facility] Urobilinogen Auto test strip (U) [Mass/Vol]Ordered By: Maciej Rodriguez on 07-19-2021 Urobilinogen (U) [Mass/Vol] Normal mg/dL Normal [facility] pH Auto test strip (U)Ordere d By: Maciej Rodriguez on 07-19-2021 pH (U) 5.5 [pH] 5.0-9.0 [facility] History and Physicalon 10-03 History and Physical MR#: [id number] Pt. Name: Maegan Dye Admitted: 09/27/2017 Date of : 1950 Attending Physician: Stormy Mcdonough MD Room #: [id number] Discharge Date: 09/29/2017 HISTORY AND PHYSICALCHIEF COMPLAINT: [...] history is significant for DVT. The patient sdaie Eliquis.PAST MEDICAL HISTORY: Posttraumatic stress disorder, depression,hypertension, history of DVT, GERD, [place], chronic back pain.PAST SURGICAL HISTORY: Pain pump, [...] personal documentation from me. Date Dict: 10/02/2017/07:00 Palmer/CANDACE Odonnellate Trans: 10/03/2017 05:29 [id number] Normal [facility] CREATININE URINE RANDOMon Creatinine 66.0 mg/dL Normal [facility] Comment on above: Result Comment: Ther e are no established reference values for random urine specimens Performed By: #### 1 [id number], [id number] ####[facility] Discharge Summaryon 09-30-19 18 Discharge Summary [id number] Admitted: 09/27/2017 Discharged: 09/29/2017 Date of : 1950 Physician: Stormy Mcdonough MD DISCHARGE SUMMARYPRIMARY DIAGNOSIS: Subdural hematoma.SECONDARY DIAGNOSES: History of deep venous thrombosis, on Eliquis;chronic low back pain.HOSPITAL COURSE: The patient is a 67-year-old female, [facility]. The patient is currently onEliquis for history of DVT. The patient initially presented to an outsidehospital where CT head demonstrated a subdural hematoma on the left side.The patient was then transferred [facility] for further evaluation by theNeurosurgery team. [...] personal documentation from me. Date Dict: 09/29/2017/07:43 A/CANDACE Fullerate Trans: 09/29/2017 08:00 [id number] c: Tomas Garcia D.O. [address] [facility] [place] [address] Normal [facility] SODIUM URINE RANDOMon 2017 Sodium 41 mmol/L Normal [facility] Comment on above: Result Comment: Ther e are no established reference values for random urine specimens Performed By: #### 1 53, ####[facility] [place] [address], [facility] TOX PANEL URINEon 09-29-2017 50 THC Negative Normal NEGATIVE [facility] Comment on above: Performed By: #### 1 ####[facility] [place] [address], [facility] BARBITURATES Negative Normal NEGATIVE [facility] Comment on above: Performed By: #### 1 53, ####[facility] [place] [address], [facility] MONO AMPHET Negative Normal NEGATIVE [facility] Comment on above: Performed By: #### 1 ####[facility] [place] [address], [facility] PROPOXYPHENE Negative Normal NEGATIVE [facility] Comment on above: Performed By: #### 1 ####[facility] [place] [address], [facility] TRICYCLICS Negative Normal NEGATIVE [facility] Comment on above: Performed By: #### 1 ####[facility] [place] [address], [place] Urine, benzodiazepines presence Negative Normal NEGATIVE [facility] Comment on above: Performed By: #### 1 ####[facility] [place] [address], [place] Urine, cocaine presence Negative Normal NEGATIVE [facility] Comment on above: Performed By: #### 1 ####[facility] [place] [address], [facility] Urine, methadone presence Negative Normal NEGATIVE [facility] Comment on above: Performed By: #### 1 ####[facility] [place] [address], [facility] Urine, opiates presence Positive Abnormal NEGATIVE [facility] Comment on above: Performed By: #### 1 ####[facility] [place] [address], [facility] Urine, phencyclidine presence Negative Normal NEGATIVE [facility] Comment on above: Performed By: #### 1 ####[facility] URINALYSIS REFLEXon 09-30-19 18 Bilirubin (total) Negative Normal NEGATIVE [facility] Comment on above: Order Comment: No: D o not add to previous draw Performed By: #### 1 ####[facility] [facility] [place] [place] [address], [facility] BLOOD SMALL Abnormal NEGATIVE [facility] Comment on above: Order Comment: No: D o not add to previous draw Performed By: #### 1 ####[facility] [facility] [place] [place] [address], [facility] EPIS MANY Abnormal FEW,OCC,NO NE SEEN [facility] Comment on above: Order Comment: No: D o not add to previous draw Performed By: #### 1 ####[facility] [place] [address], [facility] Glucose mass conc Negative Normal NEGATIVE [facility] Comment on above: Order Comment: No: D o not add to previous draw Performed By: #### 1 ####[facility] [place] [address], [facility] KETONE Negative Normal NEGATIVE [facility] Comment on above: Order Comment: No: D o not add to previous draw Performed By: #### 1 ####[facility] [place] [address], [place] LEUK ZENA Negative Normal NEGATIVE [facility] Comment on above: Order Comment: No: D o not add to previous draw Performed By: #### 1 ####[facility] [place] [address], [facility] MUCUS THREADS OCC Abnormal NONE SEEN [facility] Comment on above: Order Comment: No: D o not add to previous draw Performed By: #### 1 ####[facility] [place] [address], [facility] pH of blood 5.0 [pH] Normal 5.0-8.0 [facility] Comment on above: Order Comment: No: D o not add to previous draw Performed By: #### 1 ####[facility] [place] [address], [place] Protein Negative Normal NEGATIVE [facility] Comment on above: Order Comment: No: D o not add to previous draw Performed By: #### 1 ####[facility] [place] [address], [place] SPEC GRAV 1.008 Low 1.015-1.02 0 [facility] Comment on above: Order Comment: No: D o not add to previous draw Performed By: #### 1 ####[facility] [place] [address], [place] Urine, appearance CLEAR Normal CLEAR [facility] Comment on above: Order Comment: No: D o not add to previous draw Performed By: #### 1 53, ####[facility] [place] [address], [facility] Urine, bacteria in sediment OCC Abnormal NONE SEEN [facility] Comment on above: Order Comment: No: D o not add to previous draw Performed By: #### 1 53, ####[facility] [place] [address], [facility] Urine, color STRAW Abnormal YELLOW [facility] Comment on above: Order Comment: No: D o not add to previous draw Performed By: #### 1 53, ####[facility] [facility] [place] [address], [facility] Urine, nitrite presence Negative Normal NEGATIVE [facility] Comment on above: Order Comment: No: D o not add to previous draw Performed By: #### 1 53, ####[facility]3000 [facility].[address] WBC UA 3-5 Abnormal NONE SEEN [facility] Comment on above: Order Comment: No: D o not add to previous draw Performed By: #### 1 53, ####[facility]3000 [facility] BASIC METABOLIC PANELon 05-0 -2018 Calcium 8.2 mg/dL Low 8.6-10.3 [facility] Comment on above: Order Comment: No: D o not add to previous draw Performed By: #### 0 0071, 48864, 46246, 64529 ####[facility] [place] [address], [facility] Chloride 107 mmol/L Normal 98-107 [facility] Comment on above: Order Comment: No: D o not add to previous draw Performed By: #### 0 0071, 00514, 93528, 99874 ####[facility] CO2 29 mmol/L Normal 21-31 [facility] Comment on above: Order Comment: No: D o not add to previous draw Performed By: #### 0 0071, 93051, 70702, 20936 ####[facility] Creatinine 1.24 mg/dL High 0.60-1.20 [facility] Comment on above: Order Comment: No: D o not add to previous draw Performed By: #### 0 0071, 58919, 93127, 22512 ####[facility] eGFR (black) 52 ml/min/1.73sq m Abnormal >60 [facility] Comment on above: Order Comment: No: D o not add to previous draw Performed By: #### 0 0071, 36379, 01835, 30937 ####[facility] eGFR (non-black) 43 ml/min/1.73sq m Abnormal >60 [facility] Comment on above: Order Comment: No: D o not add to previous draw Performed By: #### 0 0071, 62531, 38170, 25988 ####[facility] Glucose mass conc 115 mg/dL High 70-100 [facility] Comment on above: Order Comment: No: D o not add to previous draw Performed By: #### 0 0071, 62879, 07289, 93320 ####[facility] [place] [address], [facility] Potassium molar conc 4.1 mmol/L Normal 3.5-5.1 [facility] Comment on above: Order Comment: No: D o not add to previous draw Performed By: #### 0 0071, 07804, 48928, 97988 ####[facility] [place] [address], [facility] Sodium 138 mmol/L Normal 136-145 [facility] Comment on above: Order Comment: No: D o not add to previous draw Performed By: #### 0 0071, 05857, 69819, 90963 ####[facility] [place] [address], [facility] Urea nitrogen 12 mg/dL Normal 7-25 [facility] Comment on above: Order Comment: No: D o not add to previous draw Performed By: #### 0 0071, 25261, 73555, 90110 ####[facility] CBC COMPLETE BLOOD COUNTon 0 09-28-2017 Erythrocyte distribution width Auto Ratio (RBC) 12.1 % Normal 11.5-15.0 [facility] Comment on above: Order Comment: No: D o not add to previous draw Performed By: #### 5 0608 ####[facility] [place] [address], [facility] Erythrocytes (RBC) 0 % Normal 0-0 [facility] Comment on above: Order Comment: No: D o not add to previous draw Performed By: #### 5 0608 ####[place] [address] [place] [address], [facility] Erythrocytes (RBC) 2.94 10*6/uL Low 3.80-5.00 [facility] Comment on above: Order Comment: No: D o not add to previous draw Performed By: #### 5 0608 ####[facility] [place] [address], [facility] Hematocrit (HCT) 28.2 % Low 36.0-45.0 [facility] Comment on above: Order Comment: No: D o not add to previous draw Performed By: #### 5 0608 ####[facility] Hemoglobin mass conc (Bld) 8.5 g/dL Low 12.0-15.0 [facility] Comment on above: Order Comment: No: D o not add to previous draw Performed By: #### 5 0608 ####[facility] MCH 28.9 pg Normal 27.0-33.0 [facility] Comment on above: Order Comment: No: D o not add to previous draw Performed By: #### 5 0608 ####[facility] MCHC mass conc (RBC) 30.1 g/dL Low 32.0-35.0 [facility] Comment on above: Order Comment: No: D o not add to previous draw Performed By: #### 5 0608 ####[facility] MCV 95.9 fL Normal 82.0-98.0 [facility] Comment on above: Order Comment: No: D o not add to previous draw Performed By: #### 5 0608 ####[facility] PLAT CNT 195 10*3/uL Normal 150-400 [facility] Comment on above: Order Comment: No: D o not add to previous draw Performed By: #### 5 0608 ####[facility] [facility].[address] WBC (Leukocytes) 6.01 10*3/uL Normal 4.00-10.60 [facility] Comment on above: Order Comment: No: D o not add to previous draw Performed By: #### 5 0608 ####[facility] BRAIN WO CONTRASTon 09-28 CT [facility] [place] [address] Brittnee ent Name: MAEGAN DYE : 1950Sex: FAge: Race: WhiteMRN: [id number]. Location: [id number] Status: IVisit #: [id number] Date: 09/27/2017 10:30:00 PMCompleted Date: 09/27/2017 10:49 PMRequesting Provider: MEGHANN RAMIREZ Attending Provider: STORMY MCDONOUGH Report Copy To: Signs & Symptoms: BleedHistory: Patient history not availableComments: Progression of Known BleedExam: CT BRAIN WO CONTRASTAccession #: [id number] ===CT BRAIN WO CONTRAST 09/27/2017 10:49 PM [...] findings. Electronically signed by:Suhail Trinh. Transcribed by: [email or web address], User Resident: KARSTEN RIVERAElectronically Signed by: SUHAIL TRINH @ 09/28/2017 06:32 AMI personally read this/these film(s) with this resident Normal [facility] Comment on above: Order Comment: No: D o not add to previous draw Consultationon 09-28-2017 Consultation MR#: [id number] Pt. Name: Maegan Dye Date of Service: 09/28/2017 Room #: [facility] [id number] Birthdate: 1950 Referring Physician: CONSULTATIONCLINICAL SERVICE: Neurosurgery.TRAUMA NAME: Female Daryl.REASON FOR CONSULT: Subdural hematoma status post fall.HISTORY OF PRESENT ILLNESS: A 67-year-old woman status post fall. She sadie Eliquis for anticoagulation. She reportedly fell and hit the sidewalk,tripping over the pavement. There was reported loss of consciousness withaltered mental status and she went to [facility] initially forevaluation. There, her head CT showed subdural hematoma on the left side.She was transferred to [facility] for further evaluation and management.The patient [...] able to be successfully improrted into the [facility] PACS system and [facility] , but she does [...] 09/28/2017/10:37 A/Kyle Ken MDDate Trans: 09/28/2017 04:01 P/[id number] c: Tomas Garcia D.O. [address] [facility] [address] [place] [facility] Consultation MR#: [id number] Pt. Name: Maegan Dye Date of Service: 09/27/2017 Room #: [facility] [id number] Birthdate: 1950 Referring Physician: CONSULTATIONTRAUMA NAME: Female [...] was altered. [facility] scan of the head and neck showed a 4 mm subduralhematoma. No midline shift and no neck injury. Due to this patient'sinjuries, she was transferred to [facility] for further management. Onpresentation, the patient [...] blood pressure of 108/68, respirations 18, oxygen [id number]% on room air.GENERAL: The patient looks well. [...] Stormy Mcdonough was present in the Trauma [facility].Electronically Signed by:Stormy Mcdonough MD 10/17/2017 06:49 P __Stormy Mcdonough MD I personally saw this patient on the day of the encounter, performed thekey portion(s) of the service and participated in the management andconfirm the resident's documentation. Please note there may be anadditional personal documentation from me. Date Dict: 09/27/2017/05:09 P/Dakota Donald Trans: 09/28/2017 03:47 A/IliaN_JN:[id number] Normal [facility] MAGNESIUM BLOODon 09-28-2017 Magnesium 1.8 mg/dL Low 1.9-2.7 [facility] Comment on above: Order Comment: No: D o not add to previous draw Performed By: #### 0 0071, 25213, 44630, 07632 ####[facility] [place] [address], [facility] PHOSPHORUS BLOODon 8 Phosphate 4.4 mg/dL Normal 2.5-5.0 [facility] Comment on above: Order Comment: No: D o not add to previous draw Performed By: #### 0 0071, 73949, 36110, 16595 ####[facility] [place] [address], [facility] TROPONIN-Ion 09-28-2017 Troponin I.cardiac mass conc 0.01 ng/mL Normal 0.00-0.04 [facility] Comment on above: Result Comment: REFE RENCE RANGES: 0.00 - 0.04 ng/ml NORMAL 0.05 - 0.50 ng/ml INDETERMINATE > 0.50 ng/ml CONSISTENT WITH AN M.I. Performed By: #### 1 53, ####[facility] [facility] [place] [address], [facility] ALCOHOLon 09-27-2017 Ethanol NONE DETECTED Normal [facility] Comment on above: Result Comment: Divi de by 1000 to convert mg/dL to percent. Example: 100mg/dL = 0.1%. Performed By: #### 1 53, ####[facility] [facility].[address] APTTon 09-27-2017 aPTT 36.2 s High 25.0-35.0 [facility] Comment on above: Order Comment: No: [...] THIS PURPOSE. Performed By: #### 5 7307, 23345 ####[facility] [facility] [place] [address], [facility] BASIC METABOLIC PANELon Calcium 9.2 mg/dL Normal 8.6-10.3 [facility] Comment on above: Order Comment: No: D o not add to previous draw Performed By: #### 0 0071 ####[facility] [place] [address], [facility] Chloride 101 mmol/L Normal 98-107 [facility] Comment on above: Order Comment: No: D o not add to previous draw Performed By: #### 0 0071 ####[facility] [place] [address], [facility] CO2 27 mmol/L Normal 21-31 [facility] Comment on above: Order Comment: No: D o not add to previous draw Performed By: #### 0 0071 ####[facility] Creatinine 1.28 mg/dL High 0.60-1.20 [facility] Comment on above: Order Comment: No: D o not add to previous draw Performed By: #### 0 0071 ####[place] [address] [facility].[address] eGFR (black) 50 ml/min/1.73sq m Abnormal >60 [facility] Comment on above: Order Comment: No: D o not add to previous draw Performed By: #### 0 0071 ####[place] [address] [facility].[address] eGFR (non-black) 42 ml/min/1.73sq m Abnormal >60 [facility] Comment on above: Order Comment: No: D o not add to previous draw Performed By: #### 0 0071 ####[facility] [facility].[address] Glucose mass conc 104 mg/dL High 70-100 [facility] Comment on above: Order Comment: No: D o not add to previous draw Performed By: #### 0 0071 ####[place] [address] [facility].[address] Potassium molar conc 4.4 mmol/L Normal 3.5-5.1 [facility] Comment on above: Order Comment: No: D o not add to previous draw Performed By: #### 0 0071 ####[facility] Sodium 134 mmol/L Low 136-145 [facility] Comment on above: Order Comment: No: D o not add to previous draw Performed By: #### 0 0071 ####[facility] Urea nitrogen 13 mg/dL Normal 7-25 [facility] Comment on above: Order Comment: No: D o not add to previous draw Performed By: #### 0 1 ####[facility] CBC W/DIFFon 09-27-2017 ABS BASOPHILS 0.1 10*3/uL Normal 0.0-0.2 [facility] Comment on above: Performed By: #### 5 102 ####[facility] ABS IMM GRANS 0.1 10*3/uL Normal 0.0-0.2 [facility] Comment on above: Performed By: #### 102 ####[facility] Basophils Auto #/vol (Bld) 0.9 % Normal 0.0-1.0 [facility] Comment on above: Performed By: #### 5 102 ####[facility] Eosinophils 0.2 10*3/uL Normal 0.0-0.5 [facility] Comment on above: Performed By: #### 102 ####[facility] Eosinophils/100 leukocytes 2.3 % Normal 0.0-6.0 [facility] Comment on above: Performed By: #### 5 102 ####[facility] Erythrocyte distribution width Auto Ratio (RBC) 12.2 % Normal 11.5-15.0 [facility] Comment on above: Performed By: #### 5 0103 ####[facility] [facility].[address] Erythrocytes (RBC) 0 % Normal 0-0 [facility] Comment on above: Performed By: #### 5 0103 ####[facility]3000 [facility].[address] Erythrocytes (RBC) 3.31 10*6/uL Low 3.80-5.00 [facility] Comment on above: Performed By: #### 5 0103 ####[facility]3000 [facility].[address] Hematocrit (HCT) 30.5 % Low 36.0-45.0 [facility] Comment on above: Performed By: #### 5 0103 ####[facility]3000 [facility].[address] Hemoglobin mass conc (Bld) 9.7 g/dL Low 12.0-15.0 [facility] Comment on above: Performed By: #### 5 3 ####[facility] [facility].[address] IMMATURE GRANS 0.5 % Normal 0.0-1.0 [facility] Comment on above: Performed By: #### 5 0103 ####[facility]3000 [facility].[address] Lymphocytes 2.5 10*3/uL Normal 1.2-4.0 [facility] Comment on above: Performed By: #### 5 3 ####[facility]3000 [facility].[address] Lymphocytes/100 leukocytes 24.5 % Normal 20.0-45.0 [facility] Comment on above: Performed By: #### 5 0103 ####[facility]3000 [facility].[address] MCH 29.3 pg Normal 27.0-33.0 [facility] Comment on above: Performed By: #### 5 0103 ####[facility] [facility].[address] MCHC mass conc (RBC) 31.8 g/dL Low 32.0-35.0 [facility] Comment on above: Performed By: #### 5 0103 ####[facility] MCV 92.1 fL Normal 82.0-98.0 [facility] Comment on above: Performed By: #### 5 0103 ####[facility] Monocytes 0.8 10*3/uL Normal 0.1-1.0 [facility] Comment on above: Performed By: #### 5 0103 ####[facility] MONOS 8.1 % Normal 5.0-12.0 [facility] Comment on above: Performed By: #### 5 0103 ####[facility] Neutrophils 6.4 10*3/uL Normal 1.6-7.6 [facility] Comment on above: Performed By: #### 5 0103 ####[facility] Neutrophils/100 leukocytes 63.7 % Normal 40.0-72.0 [facility] Comment on above: Performed By: #### 5 0103 ####[facility] PLAT CNT 214 10*3/uL Normal 150-400 [facility] Comment on above: Performed By: #### 5 0103 ####[facility] WBC (Leukocytes) 10.06 10*3/uL Normal 4.00-10.60 [facility] Comment on above: Performed By: #### 5 0103 ####[facility] LACTATE BLOODon 09-27-2017 Lactate 0.6 mmol/L Normal .5-2.2 [facility] Comment on above: Order Comment: No: D o not add to previous draw Performed By: #### 1 0054, 80169 ####[facility] PROTHROMBIN TIMEon 8 INR Coag RelTime (PPP) 1.31 {INR} High 0.91-1.16 [facility] Comment on above: Order Comment: No: [...] OF ACTION, CLINICALEFFECTIVENESS, AND OPTIMAL THERAPEUTIC RANGE. [id number];108:231S-246S. Performed By: #### 5 7307, 13029 ####[facility] Prothrombin time (PT) Coag time (PPP) 16.3 s High 12.3-14.8 [facility] Comment on above: Order Comment: No: D o not add to previous draw Result Comment: ALL RESULTS MUST BE INTERPRETED WITH RESPECT TO BLOOD DRAWING ARTIFACTOR DILUTION ERROR OF ANTICOAGULANT AT THE TIME OF SAMPLING. Performed By: #### 5 7307, 73692 ####[facility] Vital Signs Date Time Vital Sign Value Performing Clinician Facility 07-28-2024 11:04-0500 Body temperature 98.06 [degF] [facility] 07-28-2024 11:04-0500 Diastolic blood pressure 74 mm[Hg] [facility] 07-28-2024 11:04-0500 Heart rate 78 /min [facility] 07-28-2024 11:04-0500 Respiratory rate 20 /min [facility] 07-28-2024 11:04-0500 SaO2% (BldA) [Mass fraction] 96 % [facility] 07-28-2024 11:04-0500 Systolic blood pressure 131 mm[Hg] [facility] 07-25-2024 09:45-0500 Body temperature 97.7 [degF] [facility] 07-25-2024 09:45-0500 Diastolic blood pressure 72 mm[Hg] [facility] 07-25-2024 09:45-0500 Heart rate 73 /min [facility] 07-25-2024 09:45-0500 Respiratory rate 20 /min [facility] 07-25-2024 09:45-0500 SaO2% (BldA) [Mass fraction] 93 % [facility] 07-25-2024 09:45-0500 Systolic blood pressure 140 mm[Hg] [facility] 07-24-2024 08:49-0500 Body temperature 98.42 [degF] Chandan Adhikari [facility] 07-24-2024 08:49-0500 Diastolic blood pressure 98 mm[Hg] Chandan Adhikari [facility] 07-24-2024 08:49-0500 Heart rate 75 /min Chandan Adhikari [facility] 07-24-2024 08:49-0500 Respiratory rate 16 /min Chandan Adhikari [facility] 07-24-2024 08:49-0500 SaO2% (BldA) [Mass fraction] 98 % Chandan Adhikari [facility] 07-24-2024 08:49-0500 Systolic blood pressure 152 mm[Hg] Chandan Adhikari [facility] 07-20-2024 07:50-0500 Diastolic blood pressure 94 mm[Hg] Johny Willson [facility] 07-20-2024 07:50-0500 Heart rate 104 /min Johny Willson [facility] 07-20-2024 07:50-0500 Mean blood pressure 120 mm[Hg] Johny Willson [facility] 07-20-2024 07:50-0500 Respiratory rate 18 /min Johny Willson [facility] 07-20-2024 07:50-0500 SaO2% (BldA) [Mass fraction] 96 % Johny Willson [facility] 07-20-2024 07:50-0500 Systolic blood pressure 173 mm[Hg] Johny Demetris [facility] 07-20-2024 07:12-0500 Hourly Rounding Johny Demetris [facility] Comment on above: Result Comment: resting in cart with eye s closed, chest rise and fall equal 07-20-2024 06:44-0500 Diastolic blood pressure 82 mm[Hg] Johny Demetris [facility] 07-20-2024 06:44-0500 Mean blood pressure 98 mm[Hg] Johny Demetris [facility] 07-20-2024 06:44-0500 Systolic blood pressure 129 mm[Hg] Johny Willson [facility] 07-20-2024 04:55-0500 Body temperature 97.7 [degF] Johny Willson [facility] 07-20-2024 04:55-0500 Diastolic blood pressure 73 mm[Hg] Johny Willson [facility] [facility] 04:55-0500 Heart rate 90 /min Johny Willson [facility] 07-20-2024 04:55-0500 Respiratory rate 16 /min Johny Willson [facility] 07-20-2024 04:55-0500 SaO2% (BldA) [Mass fraction] 96 % Johny Willson [facility] 07-20-2024 04:55-0500 Systolic blood pressure 138 mm[Hg] Jonhy Willson [facility] 07-12-2024 13:36-0500 Heart rate 72 /min Chandan Adhikari [facility] 07-12-2024 13:36-0500 Respiratory rate 18 /min Chandan Adhikari [facility] 07-12-2024 13:36-0500 SaO2% (BldA) [Mass fraction] 97 % Chandan Adhikari [facility] 07-12-2024 12:51-0500 Body temperature 98.42 [degF] Chandan Adhikari [facility] 07-12-2024 12:51-0500 Diastolic blood pressure 77 mm[Hg] Chandan Adhikari [facility] 07-12-2024 12:51-0500 Heart rate 72 /min Chandan Adhikari [facility] 07-12-2024 12:51-0500 Respiratory rate 18 /min Chandan Adhikari [facility] 07-12-2024 12:51-0500 SaO2% (BldA) [Mass fraction] 97 % Chandan Adhikari [facility] 07-12-2024 12:51-0500 Systolic blood pressure 148 mm[Hg] Chandan Adhikari [facility] 07-04-2024 09:05-0500 Diastolic blood pressure 69 mm[Hg] [facility] 07-04-2024 09:05-0500 Heart rate 96 /min [facility] 07-04-2024 09:05-0500 Respiratory rate 18 /min [facility] 07-04-2024 09:05-0500 SaO2% (BldA) [Mass fraction] 98 % [facility] 07-04-2024 09:05-0500 Systolic blood pressure 122 mm[Hg] [facility] 07-04-2024 07:00-0500 Body temperature 98.24 [degF] [facility] 07-04-2024 07:00-0500 Diastolic blood pressure 77 mm[Hg] [facility] 07-04-2024 07:00-0500 Heart rate 93 /min [facility] 07-04-2024 07:00-0500 Respiratory rate 20 /min [facility] 07-04-2024 07:00-0500 SaO2% (BldA) [Mass fraction] 97 % [facility] 07-04-2024 07:00-0500 Systolic blood pressure 119 mm[Hg] [facility] 06-20-2024 14:27-0500 Hourly Rounding Johny Willson [facility] 06-20-2024 14:00-0500 Diastolic blood pressure 74 mm[Hg] Johny Willson [facility] 06-20-2024 14:00-0500 Heart rate 71 /min Johny Demetris [facility] 06-20-2024 14:00-0500 Mean blood pressure 90 mm[Hg] Johny Willson [facility] 06-20-2024 14:00-0500 Respiratory rate 17 /min Johny Willson [facility] 06-20-2024 14:00-0500 SaO2% (BldA) [Mass fraction] 95 % Johny Willson [facility] 06-20-2024 14:00-0500 Systolic blood pressure 122 mm[Hg] Johny Willson [facility] 06-20-2024 13:00-0500 Diastolic blood pressure 80 mm[Hg] Johny Willson [facility] 06-20-2024 13:00-0500 Heart rate 69 /min Johny Willson [facility] 06-20-2024 13:00-0500 Mean blood pressure 99 mm[Hg] Johny Willson [facility] 06-20-2024 13:00-0500 Respiratory rate 18 /min Johny Willson [facility] 06-20-2024 13:00-0500 SaO2% (BldA) [Mass fraction] 96 % Johny Willson [facility] 06-20-2024 13:00-0500 Systolic blood pressure 137 mm[Hg] Johny Demetris [facility] 06-20-2024 12:00-0500 Diastolic blood pressure 79 mm[Hg] Johny Demetris [facility] 06-20-2024 12:00-0500 Mean blood pressure 97 mm[Hg] Johny Demetris [facility] 06-20-2024 12:00-0500 Respiratory rate 20 /min Johny Willson [facility] 06-20-2024 12:00-0500 Systolic blood pressure 132 mm[Hg] Johny Demetris [facility] 06-20-2024 11:53-0500 Body temperature 98.06 [degF] Johny Willson [facility] 06-20-2024 11:53-0500 Heart rate 75 /min Johnybhavani Willson [facility] 06-17-2024 14:04-0500 Blood Pressure Location Adrian Kinsey [facility] 06-17-2024 14:04-0500 Body temperature 98.6 [degF] Adrian Kinsey [facility] 06-17-2024 14:04-0500 Diastolic blood pressure 64 mm[Hg] Adrian Kinsey [facility] 06-17-2024 14:04-0500 Heart rate 76 /min Adrian Kinsey [facility] 06-17-2024 14:04-0500 SaO2% (BldA) [Mass fraction] 94 % Adrian Kinsey [facility] 06-17-2024 14:04-0500 Systolic blood pressure 118 mm[Hg] Adrian Kinsey [facility] 05-16-2024 15:00-0500 Diastolic blood pressure 63 mm[Hg] [facility] 05-16-2024 15:00-0500 Heart rate 56 /min [facility] 05-16-2024 15:00-0500 Mean blood pressure 84 mm[Hg] [facility] 05-16-2024 15:00-0500 Systolic blood pressure 127 mm[Hg] [facility] 05-16-2024 13:51-0500 Blood Pressure Location [facility] 05-16-2024 13:51-0500 Diastolic blood pressure 70 mm[Hg] [facility] 05-16-2024 13:51-0500 Heart rate 55 /min [facility] 05-16-2024 13:51-0500 Mean blood pressure 91 mm[Hg] [facility] 05-16-2024 13:51-0500 Respiratory rate 16 /min [facility] 05-16-2024 13:51-0500 SaO2% (BldA) [Mass fraction] 93 % [facility] 05-16-2024 13:51-0500 Systolic blood pressure 134 mm[Hg] [facility] 05-16-2024 12:53-0500 Body temperature 99.68 [degF] [facility] 05-16-2024 12:53-0500 Diastolic blood pressure 93 mm[Hg] [facility] 05-16-2024 12:53-0500 Heart rate 63 /min [facility] 05-16-2024 12:53-0500 Respiratory rate 18 /min [facility] 05-16-2024 12:53-0500 Systolic blood pressure 135 mm[Hg] [facility] 05-10-2024 18:01-0500 Body temperature 98.06 [degF] Chandan Adhikari [facility] 05-10-2024 18:01-0500 Diastolic blood pressure 72 mm[Hg] Chandan Adhikari [facility] 05-10-2024 18:01-0500 Heart rate 75 /min Chandan Adhikari [facility] 05-10-2024 18:01-0500 Respiratory rate 16 /min Chandan Adhikari [facility] 05-10-2024 18:01-0500 SaO2% (BldA) [Mass fraction] 94 % Chandan Adhikari [facility] 05-10-2024 18:01-0500 Systolic blood pressure 160 mm[Hg] Chandan Adhikari [facility] 05-04-2024 17:50-0500 Body temperature 98.24 [degF] [facility] 05-04-2024 17:50-0500 Diastolic blood pressure 67 mm[Hg] [facility] 05-04-2024 17:50-0500 Heart rate 73 /min [facility] 05-04-2024 17:50-0500 Respiratory rate 16 /min [facility] 05-04-2024 17:50-0500 SaO2% (BldA) [Mass fraction] 94 % [facility] 05-04-2024 17:50-0500 Systolic blood pressure 114 mm[Hg] [facility] 05-03-2024 20:50-0500 Body temperature 97.88 [degF] Kaylinn Dokken [facility] 05-03-2024 20:50-0500 Diastolic blood pressure 88 mm[Hg] Kaylinn Dokken [facility] 05-03-2024 20:50-0500 Heart rate 79 /min Kaylinn Dokken [facility] 05-03-2024 20:50-0500 Respiratory rate 18 /min Kaylinn Dokken [facility] 05-03-2024 20:50-0500 SaO2% (BldA) [Mass fraction] 94 % Kaylinn Dokken [facility] 05-03-2024 20:50-0500 Systolic blood pressure 160 mm[Hg] Kaylinn Dokken [facility] 04-28-2024 12:19-0500 Body temperature 98.24 [degF] Chandan Adhikari [facility] 04-28-2024 12:19-0500 Diastolic blood pressure 71 mm[Hg] Chandan Onofre [facility] 04-28-2024 12:19-0500 Heart rate 73 /min Chandan Onofre [facility] 04-28-2024 12:19-0500 Respiratory rate 18 /min Chandan Adhikari [facility] 04-28-2024 12:19-0500 SaO2% (BldA) [Mass fraction] 94 % Chandan Onofre [facility] 04-28-2024 12:19-0500 Systolic blood pressure 133 mm[Hg] Chandan Onofre [facility] 04-26-2024 19:14-0500 Heart rate 77 /min Chandan Onofre [facility] 04-26-2024 19:14-0500 Respiratory rate 20 /min Chandan Onofre [facility] 04-26-2024 19:14-0500 SaO2% (BldA) [Mass fraction] 97 % Chandan Onofre [facility] 04-26-2024 18:37-0500 Body temperature 98.78 [degF] Chandan Onofre [facility] 04-26-2024 18:37-0500 Diastolic blood pressure 67 mm[Hg] Chandan Onofre [facility] 04-26-2024 18:37-0500 Heart rate 74 /min Chandan Onofre [facility] 04-26-2024 18:37-0500 Respiratory rate 18 /min Chandan Onofre [facility] 04-26-2024 18:37-0500 SaO2% (BldA) [Mass fraction] 91 % Chandan Onofre [facility] 04-26-2024 18:37-0500 Systolic blood pressure 139 mm[Hg] Chandan Onofre [facility] 04-25-2024 14:18-0500 Body temperature 98.42 [degF] Didier Hooks [facility] 04-25-2024 14:18-0500 Diastolic blood pressure 72 mm[Hg] [facility] 04-25-2024 14:18-0500 Heart rate 77 /min [facility] 04-25-2024 14:18-0500 Respiratory rate 18 /min [facility] 04-25-2024 14:18-0500 SaO2% (BldA) [Mass fraction] 93 % [facility] 04-25-2024 14:18-0500 Systolic blood pressure 136 mm[Hg] [facility] 04-21-2024 13:13-0500 Body temperature 97.88 [degF] Johny Willson [facility] 04-21-2024 13:13-0500 Diastolic blood pressure 76 mm[Hg] Johny Willson [facility] 04-21-2024 13:13-0500 Heart rate 67 /min Johny Willson [facility] 04-21-2024 13:13-0500 Respiratory rate 18 /min Johny Willson [facility] 04-21-2024 13:13-0500 SaO2% (BldA) [Mass fraction] 93 % Johny Willson [facility] 04-21-2024 13:13-0500 Systolic blood pressure 173 mm[Hg] Johny Willson [facility] 04-19-2024 10:59-0500 Body temperature 98.06 [degF] [facility] 04-19-2024 10:59-0500 Diastolic blood pressure 69 mm[Hg] [facility] 04-19-2024 10:59-0500 Heart rate 66 /min [facility] 04-19-2024 10:59-0500 Respiratory rate 18 /min [facility] 04-19-2024 10:59-0500 SaO2% (BldA) [Mass fraction] 93 % [facility] 04-19-2024 10:59-0500 Systolic blood pressure 121 mm[Hg] [facility] 04-17-2024 15:59-0500 Body temperature 97.52 [degF] Carlos Coates [facility] 04-17-2024 15:59-0500 Diastolic blood pressure 69 mm[Hg] Carlos Coates [facility] 04-17-2024 15:59-0500 Heart rate 64 /min Carlos Coates [facility] 04-17-2024 15:59-0500 Respiratory rate 16 /min Carlos Coates [facility] 04-17-2024 15:59-0500 SaO2% (BldA) [Mass fraction] 96 % Carlos Coates [facility] 04-17-2024 15:59-0500 Systolic blood pressure 123 mm[Hg] Carlos Coates [facility] 04-14-2024 18:04-0500 Body temperature 97.88 [degF] Johny Willson [facility] 04-14-2024 18:04-0500 Diastolic blood pressure 73 mm[Hg] Johny Willson [facility] 04-14-2024 18:04-0500 Heart rate 80 /min Johny Willson [facility] 04-14-2024 18:04-0500 Respiratory rate 18 /min Johny Willson [facility] 04-14-2024 18:04-0500 SaO2% (BldA) [Mass fraction] 94 % Johny Willson [facility] 04-14-2024 18:04-0500 Systolic blood pressure 161 mm[Hg] Johny Willson [facility] 04-11-2024 15:30-0500 Diastolic blood pressure 79 mm[Hg] Carlos Jaxon [facility] 04-11-2024 15:30-0500 Heart rate 67 /min Carlos Jaxon [facility] 04-11-2024 15:30-0500 Mean blood pressure 103 mm[Hg] Carlos Jaxon [facility] 04-11-2024 15:30-0500 Respiratory rate 18 /min Carlos Jaxon [facility] 04-11-2024 15:30-0500 SaO2% (BldA) [Mass fraction] 96 % Carlos Jaxon [facility] 04-11-2024 15:30-0500 Systolic blood pressure 151 mm[Hg] Carlos Jaxon [facility] 04-11-2024 15:00-0500 Diastolic blood pressure 65 mm[Hg] Carlos Jaxon [facility] 04-11-2024 15:00-0500 Heart rate 64 /min Carlos Jaxon [facility] 04-11-2024 15:00-0500 Mean blood pressure 87 mm[Hg] Carlos Jaxon [facility] 04-11-2024 15:00-0500 SaO2% (BldA) [Mass fraction] 94 % Carlos Jaxon [facility] 04-11-2024 15:00-0500 Systolic blood pressure 131 mm[Hg] Carlos Jaxon [facility] 04-11-2024 14:32-0500 Diastolic blood pressure 69 mm[Hg] Carlos Jaxon [facility] 04-11-2024 14:32-0500 Heart rate 63 /min Carlos Coates [facility] 04-11-2024 14:32-0500 Mean blood pressure 92 mm[Hg] Carlos Coates [facility] 04-11-2024 14:32-0500 Respiratory rate 18 /min Carlos Coates [facility] 04-11-2024 14:32-0500 SaO2% (BldA) [Mass fraction] 93 % Carlos Coates [facility] 04-11-2024 14:32-0500 Systolic blood pressure 138 mm[Hg] Carlos Coates [facility] 04-11-2024 12:47-0500 Body temperature 98.24 [degF] Carlos Coates [facility] 04-11-2024 12:47-0500 Heart rate 67 /min Carlos Coates [facility] 04-08-2024 12:00-0500 Diastolic blood pressure 75 mm[Hg] [facility] 04-08-2024 12:00-0500 Heart rate 61 /min [facility] 04-08-2024 12:00-0500 Mean blood pressure 95 mm[Hg] [facility] 04-08-2024 12:00-0500 SaO2% (BldA) [Mass fraction] 94 % [facility] 04-08-2024 12:00-0500 Systolic blood pressure 136 mm[Hg] [facility] 04-08-2024 11:49-0500 Body temperature 97.88 [degF] [facility] 04-08-2024 11:49-0500 Diastolic blood pressure 73 mm[Hg] [facility] 04-08-2024 11:49-0500 Heart rate 56 /min [facility] 04-08-2024 11:49-0500 Respiratory rate 18 /min [facility] 04-08-2024 11:49-0500 SaO2% (BldA) [Mass fraction] 93 % [facility] 04-08-2024 11:49-0500 Systolic blood pressure 156 mm[Hg] [facility] 04-07-2024 16:45-0500 Body temperature 97.7 [degF] [facility] 04-07-2024 16:45-0500 Diastolic blood pressure 69 mm[Hg] [facility] 04-07-2024 16:45-0500 Heart rate 83 /min [facility] 04-07-2024 16:45-0500 Respiratory rate 20 /min [facility] 04-07-2024 16:45-0500 SaO2% (BldA) [Mass fraction] 93 % [facility] 04-07-2024 16:45-0500 Systolic blood pressure 155 mm[Hg] [facility] 04-04-2024 14:00-0500 Heart rate 69 /min [facility] 04-04-2024 14:00-0500 Respiratory rate 15 /min [facility] 04-04-2024 13:30-0500 Diastolic blood pressure 63 mm[Hg] [facility] 04-04-2024 13:30-0500 Heart rate 74 /min [facility] 04-04-2024 13:30-0500 Mean blood pressure 84 mm[Hg] [facility] 04-04-2024 13:30-0500 Respiratory rate 25 /min [facility] 04-04-2024 13:30-0500 SaO2% (BldA) [Mass fraction] 96 % [facility] 04-04-2024 13:30-0500 Systolic blood pressure 125 mm[Hg] [facility] 04-04-2024 12:52-0500 Body temperature 98.24 [degF] [facility] 04-04-2024 12:52-0500 Diastolic blood pressure 77 mm[Hg] [facility] 04-04-2024 12:52-0500 Heart rate 77 /min [facility] 04-04-2024 12:52-0500 Respiratory rate 18 /min [facility] 04-04-2024 12:52-0500 SaO2% (BldA) [Mass fraction] 93 % [facility] 04-04-2024 12:52-0500 Systolic blood pressure 147 mm[Hg] [facility] 03-29-2024 14:22-0500 Body height 157.5 cm Jose [employer] Work Phone: [facility] 03-29-2024 14:22-0500 Body mass index (BMI) [Ratio] 21.03 kg/m2 [place] Work Phone: [facility] 03-29-2024 14:22-0500 Body weight 52.16 kg [employer] Work Phone: [facility] 03-18-2024 16:33-0400 Diastolic blood pressure 69 mm[Hg] [facility] 03-18-2024 16:33-0400 Heart rate 66 /min [facility] 03-18-2024 16:33-0400 Mean blood pressure 86 mm[Hg] [facility] 03-18-2024 16:33-0400 Respiratory rate 18 /min [facility] 03-18-2024 16:33-0400 SaO2% (BldA) [Mass fraction] 97 % [facility] 03-18-2024 16:33-0400 Systolic blood pressure 120 mm[Hg] [facility] 03-18-2024 15:58-0400 Body temperature 98.78 [degF] [facility] 03-18-2024 15:58-0400 Diastolic blood pressure 66 mm[Hg] [facility] 03-18-2024 15:58-0400 Heart rate 76 /min [facility] 03-18-2024 15:58-0400 Respiratory rate 18 /min [facility] 03-18-2024 15:58-0400 SaO2% (BldA) [Mass fraction] 96 % [facility] 03-18-2024 15:58-0400 Systolic blood pressure 103 mm[Hg] [facility] 03-16-2024 11:35-0400 Heart rate 65 /min Buddy Celestino [facility] 03-16-2024 11:35-0400 SaO2% (BldA) [Mass fraction] 93 % Buddy Celestino [facility] 03-16-2024 11:34-0400 Respiratory rate 18 /min Buddy Aguilarcker [facility] 03-16-2024 11:34-0400 Body temperature 98.06 [degF] Buddy Tirado [facility] 03-16-2024 11:31-0400 Diastolic blood pressure 71 mm[Hg] Buddy Tirado [facility] 03-16-2024 11:31-0400 Mean blood pressure 93 mm[Hg] Buddy Tirado [facility] 03-16-2024 11:31-0400 Systolic blood pressure 136 mm[Hg] Buddy Tirado [facility] 03-16-2024 09:05-0400 Hourly Rounding Buddy Celestino [facility] 03-16-2024 09:05-0400 Promise to Return Buddy Celestino [facility] 03-16-2024 08:00-0400 Hourly Rounding Buddy Celestino [facility] 03-16-2024 08:00-0400 Promise to Return Buddy Celestino [facility] 03-16-2024 07:21-0400 Heart rate 63 /min Buddy Celestino [facility] 03-16-2024 07:21-0400 Respiratory rate 18 /min Buddy Celestino [facility] 03-16-2024 07:21-0400 SaO2% (BldA) [Mass fraction] 91 % Buddy Celestino [facility] 03-16-2024 07:20-0400 Body temperature 98.06 [degF] Buddy Celestino [facility] 03-16-2024 07:20-0400 Diastolic blood pressure 69 mm[Hg] Buddy Celestino [facility] 03-16-2024 07:20-0400 Mean blood pressure 87 mm[Hg] Buddy Celestino [facility] 03-16-2024 07:20-0400 Systolic blood pressure 123 mm[Hg] Buddy Celestino [facility] 03-16-2024 07:00-0400 Hourly Rounding Buddy Celestino [facility] 03-16-2024 07:00-0400 Promise to Return Buddy Celestino [facility] 03-16-2024 02:05-0400 Body temperature 97.34 [degF] Buddy Tirado [facility] 03-16-2024 02:05-0400 Diastolic blood pressure 75 mm[Hg] Buddy Shankser [facility] 03-16-2024 02:05-0400 Heart rate 60 /min Buddy Tirado [facility] 03-16-2024 02:05-0400 Mean blood pressure 92 mm[Hg] Buddy Tirado [facility] 03-16-2024 02:05-0400 SaO2% (BldA) [Mass fraction] 95 % Buddy Tirado [facility] 03-16-2024 02:05-0400 Systolic blood pressure 126 mm[Hg] Buddy Tirado [facility] 03-15-2024 19:17-0400 Mean blood pressure 85 mm[Hg] Buddy Tirado [facility] 03-15-2024 15:46-0400 Respiratory rate 18 /min Buddy Tirado [facility] 03-15-2024 15:39-0400 Blood Pressure Location Buddy Tirado [facility] 03-15-2024 08:00-0400 FIO2 28 1 Buddy Tirado [facility] 03-15-2024 08:00-0400 Mean blood pressure 97 mm[Hg] Buddy Shankser [facility] 03-15-2024 03:15-0400 Blood Pressure Location Buddy Shankser [facility] 03-15-2024 03:15-0400 Body temperature 97.16 [degF] Buddy Shankser [facility] 03-15-2024 03:15-0400 Mean blood pressure 87 mm[Hg] Buddy Tirado [facility] 03-15-2024 00:20-0400 Body temperature 97.88 [degF] Buddy Aguilarcker [facility] 03-14-2024 13:20-0400 FIO2 28 1 Buddy Celestino [facility] 03-14-2024 10:36-0400 Body temperature 97.7 [degF] Buddy Aguilarcker [facility] 03-14-2024 10:36-0400 FIO2 28 1 Buddy Aguilarcker [facility] 03-14-2024 10:36-0400 Heart rate 63 /min Buddy Shankser [facility] 03-14-2024 05:12-0400 Heart rate 71 /min Buddy Celestino [facility] 03-14-2024 04:55-0400 Heart rate 80 /min Buddy Celestino [facility] 03-12-2024 15:36-0400 Diastolic blood pressure 74 mm[Hg] [facility] 03-12-2024 15:36-0400 Heart rate 69 /min [facility] 03-12-2024 15:36-0400 Respiratory rate 18 /min [facility] 03-12-2024 15:36-0400 SaO2% (BldA) [Mass fraction] 94 % [facility] 03-12-2024 15:36-0400 Systolic blood pressure 139 mm[Hg] [facility] 03-12-2024 14:10-0400 Diastolic blood pressure 95 mm[Hg] [facility] 03-12-2024 14:10-0400 Heart rate 69 /min [facility] 03-12-2024 14:10-0400 Respiratory rate 18 /min [facility] 03-12-2024 14:10-0400 SaO2% (BldA) [Mass fraction] 94 % [facility] 03-12-2024 14:10-0400 Systolic blood pressure 143 mm[Hg] [facility] 03-12-2024 13:27-0400 Diastolic blood pressure 71 mm[Hg] [facility] 03-12-2024 13:27-0400 Heart rate 68 /min [facility] 03-12-2024 13:27-0400 Respiratory rate 18 /min [facility] 03-12-2024 13:27-0400 SaO2% (BldA) [Mass fraction] 94 % [facility] 03-12-2024 13:27-0400 Systolic blood pressure 158 mm[Hg] [facility] 03-12-2024 12:36-0400 Body temperature 98.06 [degF] [facility] 03-11-2024 11:47-0400 Body temperature 97.88 [degF] [facility] 03-11-2024 11:47-0400 Diastolic blood pressure 70 mm[Hg] [facility] 03-11-2024 11:47-0400 Heart rate 84 /min [facility] 03-11-2024 11:47-0400 Respiratory rate 18 /min [facility] 03-11-2024 11:47-0400 SaO2% (BldA) [Mass fraction] 95 % [facility] 03-11-2024 11:47-0400 Systolic blood pressure 155 mm[Hg] [facility] 03-09-2024 06:23-0400 Body temperature 97.34 [degF] Julio Cinn Dokken [facility] 03-09-2024 06:23-0400 Diastolic blood pressure 76 mm[Hg] Kaylinn Dokken [facility] 03-09-2024 06:23-0400 Heart rate 81 /min Chelon Dokken [facility] 03-09-2024 06:23-0400 Respiratory rate 16 /min Chelon Dokken [facility] 03-09-2024 06:23-0400 SaO2% (BldA) [Mass fraction] 91 % Chelon Dokken [facility] 03-09-2024 06:23-0400 Systolic blood pressure 136 mm[Hg] Julio Cinn Dokken [facility] 02-24-2024 11:19-0400 Body temperature 98.06 [degF] [facility] 02-24-2024 11:19-0400 Diastolic blood pressure 74 mm[Hg] [facility] 02-24-2024 11:19-0400 Heart rate 71 /min [facility] 02-24-2024 11:19-0400 Respiratory rate 18 /min [facility] 02-24-2024 11:19-0400 SaO2% (BldA) [Mass fraction] 93 % [facility] 02-24-2024 11:19-0400 Systolic blood pressure 142 mm[Hg] [facility] 02-23-2024 18:29-0400 Body temperature 98.06 [degF] [facility] 02-23-2024 18:29-0400 Diastolic blood pressure 66 mm[Hg] [facility] 02-23-2024 18:29-0400 Heart rate 73 /min [facility] 02-23-2024 18:29-0400 Respiratory rate 18 /min [facility] 02-23-2024 18:29-0400 SaO2% (BldA) [Mass fraction] 95 % [facility] 02-23-2024 18:29-0400 Systolic blood pressure 138 mm[Hg] [facility] 02-23-2024 10:27-0400 Body height 157.5 cm Jose Pocos DO Work Phone: [facility] 02-23-2024 10:27-0400 Body mass index (BMI) [Ratio] 21.03 kg/m2 Jose Pocos DO Work Phone: [facility] 02-23-2024 10:27-0400 Body weight 52.16 kg Jose Pocos DO Work Phone: [facility] 02-11-2024 17:21-0400 Diastolic blood pressure 65 mm[Hg] [facility] 02-11-2024 17:21-0400 Heart rate 73 /min [facility] 02-11-2024 17:21-0400 Inhaled oxygen flow rate 2 L/min [facility] 02-11-2024 17:21-0400 Respiratory rate 20 /min [facility] 02-11-2024 17:21-0400 SaO2% (BldA) [Mass fraction] 98 % [facility] 02-11-2024 17:21-0400 Systolic blood pressure 136 mm[Hg] [facility] [facility] 02-11-2024 13:19-0400 Body height 154.94 cm [facility] 02-11-2024 13:19-0400 Body weight 67.8 kg [facility] 02-11-2024 13:18-0400 Body temperature 97.8 [degF] [facility] 02-06-2024 10:30-0400 Diastolic blood pressure 61 mm[Hg] Chandan Munoze [facility] 02-06-2024 10:30-0400 Heart rate 70 /min Chandan Munoze [facility] 02-06-2024 10:30-0400 Mean blood pressure 81 mm[Hg] Chandan Munoze [facility] 02-06-2024 10:30-0400 Respiratory rate 16 /min Chandan Munoze [facility] 02-06-2024 10:30-0400 SaO2% (BldA) [Mass fraction] 90 % Chandan Onofre [facility] 02-06-2024 10:30-0400 Systolic blood pressure 121 mm[Hg] Chandan Munoze [facility] 02-06-2024 07:41-0400 Body temperature 98.42 [degF] Chandan Munoze [facility] 02-06-2024 07:41-0400 Diastolic blood pressure 81 mm[Hg] Chandan Munoze [facility] 02-06-2024 07:41-0400 Heart rate 73 /min Chandan Munoze [facility] 02-06-2024 07:41-0400 Respiratory rate 18 /min Chandan Munoze [facility] 02-06-2024 07:41-0400 SaO2% (BldA) [Mass fraction] 95 % Chandan Munoze [facility] 02-06-2024 07:41-0400 Systolic blood pressure 132 mm[Hg] Chandan Onofre [facility] 02-02-2024 09:40-0400 Body height 157.5 cm Jose Aliliana DO Work Phone: [facility] 02-02-2024 09:40-0400 Body mass index (BMI) [Ratio] 21.03 kg/m2 Jose Pocos DO Work Phone: [facility] 02-02-2024 09:40-0400 Body weight 52.16 kg Jose Pocos DO Work Phone: [facility] 01-28-2024 18:26-0400 Body temperature 97.88 [degF] [facility] 01-28-2024 18:26-0400 Diastolic blood pressure 68 mm[Hg] [facility] 01-28-2024 18:26-0400 Heart rate 76 /min [facility] 01-28-2024 18:26-0400 Respiratory rate 16 /min [facility] 01-28-2024 18:26-0400 SaO2% (BldA) [Mass fraction] 96 % [facility] 01-28-2024 18:26-0400 Systolic blood pressure 142 mm[Hg] [facility] 01-12-2024 12:49-0400 Body height 157.5 cm Jose Alos DO Work Phone: [facility] 01-10-2024 20:55-0400 Body temperature 97.7 [degF] Kaylinn Dokken [facility] 01-10-2024 20:55-0400 Diastolic blood pressure 66 mm[Hg] Kaylinn Dokken [facility] 01-10-2024 20:55-0400 Heart rate 93 /min Kaylinn Dokken [facility] 01-10-2024 20:55-0400 Respiratory rate 16 /min Kaylinn Dokken [facility] 01-10-2024 20:55-0400 SaO2% (BldA) [Mass fraction] 96 % Mati Taylor [facility] 01-10-2024 20:55-0400 Systolic blood pressure 157 mm[Hg] Mati Taylor [facility] 01-02-2024 10:58-0400 Blood Pressure Location Amarilis Bordner [facility] 01-02-2024 10:58-0400 Body temperature 99.68 [degF] Amarilis Bordner [facility] 01-02-2024 10:58-0400 Diastolic blood pressure 68 mm[Hg] Amarilis Bordner [facility] 01-02-2024 10:58-0400 Heart rate 76 /min Amarilis Bordner [facility] 01-02-2024 10:58-0400 Respiratory rate 18 /min Amarilis Bordner [facility] 01-02-2024 10:58-0400 Systolic blood pressure 148 mm[Hg] Amarilis Bordner [facility] 09-12-2023 15:34-0400 Hourly [address] [facility] 09-12-2023 15:34-0400 Promise to Return [facility] 09-12-2023 14:36-0400 Hourly [address] [facility] 09-12-2023 14:36-0400 Promise to Return Ana [facility] 09-12-2023 13:15-0400 Hourly [address] [facility] 09-12-2023 13:13-0400 Promise to Return Ana [facility] 09-12-2023 10:00-0400 Body temperature 98.24 [degF] [facility] 09-12-2023 10:00-0400 Diastolic blood pressure 70 mm[Hg] [facility] 09-12-2023 10:00-0400 Heart rate 59 /min [facility] 09-12-2023 10:00-0400 SaO2% (BldA) [Mass fraction] 95 % [facility] 09-12-2023 10:00-0400 Systolic blood pressure 130 mm[Hg] [facility] 09-12-2023 08:00-0400 Body temperature 97.88 [degF] [facility] 09-12-2023 08:00-0400 Heart rate 52 /min [facility] 09-12-2023 08:00-0400 Systolic blood pressure 126 mm[Hg] [facility] 09-11-2023 19:49-0400 Heart rate 59 /min [facility] 09-11-2023 19:49-0400 SaO2% (BldA) [Mass fraction] 94 % [facility] 09-11-2023 19:45-0400 Body temperature 97.88 [degF] [facility] 09-11-2023 19:44-0400 Diastolic blood pressure 78 mm[Hg] [facility] 09-11-2023 19:44-0400 Mean blood pressure 93 mm[Hg] [facility] 09-11-2023 19:44-0400 Systolic blood pressure 123 mm[Hg] [facility] 09-11-2023 19:00-0400 Blood Pressure Location [facility] 09-11-2023 19:00-0400 Respiratory rate 16 /min [facility] 09-11-2023 17:00-0400 Respiratory rate 17 /min [facility] 09-11-2023 15:59-0400 Body temperature 97.34 [degF] [facility] 09-11-2023 15:59-0400 Mean blood pressure 92 mm[Hg] [facility] 09-11-2023 11:35-0400 Mean blood pressure 96 mm[Hg] [facility] 09-11-2023 07:00-0400 Body temperature 97.7 [degF] [facility] 09-11-2023 07:00-0400 Mean blood pressure 89 mm[Hg] [facility] 09-11-2023 01:13-0400 Mean blood pressure 89 mm[Hg] [facility] 09-09-2023 01:20-0400 Heart rate 66 /min [facility] 09-08-2023 22:00-0400 Heart rate 85 /min [facility] 09-08-2023 15:05-0400 Heart rate 75 /min [facility] 09-07-2023 22:34-0400 Respiratory rate 18 /min [facility] 09-07-2023 22:00-0400 Respiratory rate 20 /min [facility] 09-06-2023 18:38-0400 Body temperature 98.5 [degF] BAND EDGER Bebe Saffle Work Phone: [facility] 09-06-2023 18:38-0400 Diastolic blood pressure 74 mm[Hg] BAND EDGER Bebe Saffle Work Phone: [facility] 09-06-2023 18:38-0400 Heart rate 70 /min BAND EDGER Bebe Saffle Work Phone: [facility] 09-06-2023 18:38-0400 Respiratory rate 18 /min BAND EDGER Bebe Saffle Work Phone: [facility] 09-06-2023 18:38-0400 SaO2% (BldA) [Mass fraction] 94 % BAND EDGER Bebe Saffle Work Phone: [facility] 09-06-2023 18:38-0400 Systolic blood pressure 155 mm[Hg] BAND EDGER Bebe Saffle Work Phone: [facility] 09-06-2023 14:02-0400 Body height 157.48 cm BAND EDGER Bebe Saffle Work Phone: [facility] 09-06-2023 14:02-0400 Body weight 61.8 kg BAND EDGER Bebe Saffle Work Phone: [facility] 09-02-2023 07:30-0400 Body temperature 97.3 [degF] BAND EDGER Bebe Saffle Work Phone: [facility] 09-02-2023 07:30-0400 Diastolic blood pressure 73 mm[Hg] BAND EDGER Bebe Saffle Work Phone: [facility] 09-02-2023 07:30-0400 Heart rate 77 /min BAND EDGER Bebe Saffle Work Phone: [facility] 09-02-2023 07:30-0400 Respiratory rate 16 /min BAND EDGER Bebe Saffle Work Phone: [facility] 09-02-2023 07:30-0400 SaO2% (BldA) [Mass fraction] 94 % BAND EDGER Bebe Saffle Work Phone: [facility] 09-02-2023 07:30-0400 Systolic blood pressure 147 mm[Hg] BAND EDGER Bebe Saffle Work Phone: [facility] 09-01-2023 09:00-0400 Body weight 59 kg BAND EDGER Bebe Saffle Work Phone: [facility] 08-28-2023 14:35-0400 Body height 157.48 cm BAND EDGERLukas Ortiz Work Phone: [facility] 08-27-2023 09:31-0400 Diastolic blood pressure 71 mm[Hg] Johny Willson [facility] 08-27-2023 09:31-0400 Heart rate 71 /min Johny Demetris [facility] 08-27-2023 09:31-0400 Mean blood pressure 92 mm[Hg] Johny Demetris [facility] 08-27-2023 09:31-0400 Respiratory rate 18 /min Johny Willson [facility] 08-27-2023 09:31-0400 SaO2% (BldA) [Mass fraction] 95 % Johny Demetris [facility] 08-27-2023 09:31-0400 Systolic blood pressure 133 mm[Hg] Johny Demetris [facility] 08-27-2023 08:04-0400 Body temperature 97.88 [degF] Johny Willson [facility] 08-27-2023 08:04-0400 Diastolic blood pressure 67 mm[Hg] Johny Demetris [facility] 08-27-2023 08:04-0400 Heart rate 70 /min Johny Demetris [facility] 08-27-2023 08:04-0400 Respiratory rate 18 /min Johny Demetris [facility] 08-27-2023 08:04-0400 SaO2% (BldA) [Mass fraction] 97 % Johny Willson [facility] 08-27-2023 08:04-0400 Systolic blood pressure 128 mm[Hg] Johny Willson [facility] 08-22-2023 14:54-0400 Diastolic blood pressure 60 mm[Hg] BAND EDGER Bebe Saffle Work Phone: [facility] 08-22-2023 14:54-0400 Heart rate 60 /min BAND EDGER Bebe Saffle Work Phone: [facility] 08-22-2023 14:54-0400 Respiratory rate 18 /min BAND EDGER Bebe Saffle Work Phone: [facility] 08-22-2023 14:54-0400 SaO2% (BldA) [Mass fraction] 95 % BAND EDGER Bebe Saffle Work Phone: [facility] 08-22-2023 14:54-0400 Systolic blood pressure 128 mm[Hg] BAND EDGER Bebe Saffle Work Phone: [facility] 08-22-2023 11:57-0400 Body height 157.48 cm BAND EDGER Bebe Saffle Work Phone: [facility] 08-22-2023 11:57-0400 Body weight 58.96 kg BAND EDGER Bebe Saffle Work Phone: [facility] 08-22-2023 11:54-0400 Body temperature 97.7 [degF] BAND EDGER Bebe Saffle Work Phone: [facility] 08-21-2023 15:08-0400 Body temperature 98.24 [degF] Johny Willson [facility] 08-21-2023 15:08-0400 Diastolic blood pressure 79 mm[Hg] Johny Willson [facility] 08-21-2023 15:08-0400 Heart rate 73 /min Johny Demetris [facility] 08-21-2023 15:08-0400 Respiratory rate 18 /min Johny Demetris [facility] 08-21-2023 15:08-0400 SaO2% (BldA) [Mass fraction] 96 % Johny Demetris [facility] 08-21-2023 15:08-0400 Systolic blood pressure 123 mm[Hg] Johny Demetris [facility] 08-14-2023 11:10-0400 Diastolic blood pressure 80 mm[Hg] Johny Demetris [facility] 08-14-2023 11:10-0400 Heart rate 60 /min Johny Demetris [facility] 08-14-2023 11:10-0400 Mean blood pressure 91 mm[Hg] Johny Demetris [facility] 08-14-2023 11:10-0400 Respiratory rate 18 /min Johny Demetris [facility] 08-14-2023 11:10-0400 SaO2% (BldA) [Mass fraction] 95 % Johny Demetris [facility] 08-14-2023 11:10-0400 Systolic blood pressure 112 mm[Hg] Johny Demetris [facility] 08-14-2023 10:28-0400 Diastolic blood pressure 78 mm[Hg] Johny Demetris [facility] 08-14-2023 10:28-0400 Heart rate 56 /min Johny Demetris [facility] 08-14-2023 10:28-0400 Mean blood pressure 95 mm[Hg] Johny Demetris [facility] 08-14-2023 10:28-0400 Respiratory rate 18 /min Johny Demetris [facility] 08-14-2023 10:28-0400 SaO2% (BldA) [Mass fraction] 95 % Johny Demetris [facility] 08-14-2023 10:28-0400 Systolic blood pressure 129 mm[Hg] Johny Demetris [facility] 08-14-2023 09:21-0400 Body temperature 98.24 [degF] Johny Demetris [facility] 08-14-2023 09:21-0400 Diastolic blood pressure 86 mm[Hg] Johny Demetris [facility] 08-14-2023 09:21-0400 Heart rate 62 /min Johny Demetris [facility] 08-14-2023 09:21-0400 Respiratory rate 18 /min Johny Demetris [facility] 08-14-2023 09:21-0400 SaO2% (BldA) [Mass fraction] 95 % Johny Demetris [facility] 08-14-2023 09:21-0400 Systolic blood pressure 125 mm[Hg] Johny Demetris [facility] 08-13-2023 19:42-0400 Body temperature 98.06 [degF] Kaylinn Dokken [facility] 08-13-2023 19:42-0400 Diastolic blood pressure 81 mm[Hg] Kaylinn Dokken [facility] 08-13-2023 19:42-0400 Heart rate 78 /min Kaylinn Dokken [facility] 08-13-2023 19:42-0400 Respiratory rate 18 /min Kaylinn Dokken [facility] 08-13-2023 19:42-0400 SaO2% (BldA) [Mass fraction] 94 % Kaylinn Dokken [facility] 08-13-2023 19:42-0400 Systolic blood pressure 128 mm[Hg] Kaylinn Dokken [facility] 08-12-2023 20:00-0400 Diastolic blood pressure 71 mm[Hg] Kaylinn Dokken [facility] 08-12-2023 20:00-0400 Heart rate 65 /min Kaylinn Dokken [facility] 08-12-2023 20:00-0400 Mean blood pressure 92 mm[Hg] Kaylinn Dokken [facility] 08-12-2023 20:00-0400 SaO2% (BldA) [Mass fraction] 95 % Kaylinn Dokken [facility] 08-12-2023 20:00-0400 Systolic blood pressure 135 mm[Hg] Kaylinn Dokken [facility] 08-12-2023 19:30-0400 Diastolic blood pressure 74 mm[Hg] Kaylinn Dokken [facility] 08-12-2023 19:30-0400 Heart rate 68 /min Kaylinn Dokken [facility] 08-12-2023 19:30-0400 Mean blood pressure 93 mm[Hg] Kaylinn Dokken [facility] 08-12-2023 19:30-0400 Respiratory rate 16 /min Kaylinn Dokken [facility] 08-12-2023 19:30-0400 SaO2% (BldA) [Mass fraction] 92 % Kaylinn Dokken [facility] 08-12-2023 19:30-0400 Systolic blood pressure 130 mm[Hg] Kaylinn Dokken [facility] 08-12-2023 18:09-0400 Body temperature 98.06 [degF] Kaylinn Dokken [facility] 08-12-2023 18:09-0400 Diastolic blood pressure 69 mm[Hg] Kaylinn Dokken [facility] 08-12-2023 18:09-0400 Heart rate 63 /min Kaylinn Dokken [facility] 08-12-2023 18:09-0400 Respiratory rate 18 /min Kaylinn Dokken [facility] 08-12-2023 18:09-0400 SaO2% (BldA) [Mass fraction] 91 % Kaylinn Dokken [facility] 08-12-2023 18:09-0400 Systolic blood pressure 125 mm[Hg] Kaylinn Dokken [facility] 08-10-2023 00:45-0400 Diastolic blood pressure 68 mm[Hg] Santiago Len [facility] 08-10-2023 00:45-0400 Heart rate 71 /min Santiago Len [facility] 08-10-2023 00:45-0400 Respiratory rate 20 /min Santiago Len [facility] 08-10-2023 00:45-0400 SaO2% (BldA) [Mass fraction] 93 % Santiago Len [facility] 08-10-2023 00:45-0400 Systolic blood pressure 133 mm[Hg] Santiago Len [facility] 08-09-2023 23:17-0400 Body temperature 97.88 [degF] Santiago Len [facility] 08-09-2023 23:17-0400 Diastolic blood pressure 60 mm[Hg] Santiago Len [facility] 08-09-2023 23:17-0400 Heart rate 71 /min Santiago Len [facility] 08-09-2023 23:17-0400 Respiratory rate 20 /min Santiago Len [facility] 08-09-2023 23:17-0400 SaO2% (BldA) [Mass fraction] 93 % Santiago Len [facility] 08-09-2023 23:17-0400 Systolic blood pressure 120 mm[Hg] Santiago Len [facility] 08-07-2023 17:00-0400 Diastolic blood pressure 61 mm[Hg] [facility] 08-07-2023 17:00-0400 Heart rate 67 /min [facility] 08-07-2023 17:00-0400 Mean blood pressure 83 mm[Hg] [facility] 08-07-2023 17:00-0400 SaO2% (BldA) [Mass fraction] 93 % [facility] 08-07-2023 17:00-0400 Systolic blood pressure 126 mm[Hg] [facility] 08-07-2023 16:30-0400 Diastolic blood pressure 55 mm[Hg] [facility] 08-07-2023 16:30-0400 Mean blood pressure 74 mm[Hg] [facility] 08-07-2023 16:30-0400 Respiratory rate 18 /min [facility] 08-07-2023 16:30-0400 Systolic blood pressure 113 mm[Hg] [facility] 08-07-2023 16:00-0400 Diastolic blood pressure 50 mm[Hg] [facility] 08-07-2023 16:00-0400 Mean blood pressure 68 mm[Hg] [facility] 08-07-2023 16:00-0400 Systolic blood pressure 105 mm[Hg] [facility] 08-07-2023 15:30-0400 Heart rate 74 /min [facility] 08-07-2023 15:30-0400 SaO2% (BldA) [Mass fraction] 92 % [facility] 08-07-2023 15:18-0400 Body temperature 98.06 [degF] [facility] 08-07-2023 15:18-0400 Heart rate 77 /min [facility] 07-05-2023 17:30-0500 Diastolic blood pressure 71 mm[Hg] BAND EDGER Bebe Saffle Work Phone: [facility] 07-05-2023 17:30-0500 Heart rate 71 /min BAND EDGER Bebe Saffle Work Phone: [facility] 07-05-2023 17:30-0500 Respiratory rate 16 /min BAND EDGER Bebe Saffle Work Phone: [facility] 07-05-2023 17:30-0500 SaO2% (BldA) [Mass fraction] 95 % BAND EDGER Bebe Saffle Work Phone: [facility] 07-05-2023 17:30-0500 Systolic blood pressure 138 mm[Hg] SVITLANA Ortiz Work Phone: [facility] 07-05-2023 15:44-0500 Body height 157.48 cm BAND EDGERLukas Ortiz Work Phone: [facility] 07-05-2023 15:44-0500 Body temperature 97.8 [degF] SVITLANA Ortiz Work Phone: [facility] 07-05-2023 15:44-0500 Body weight 59.87 kg BAND EDGERLukas Ortiz Work Phone: [facility] 05-26-2023 18:53-0500 Body temperature 98.24 [degF] Carlos Coates [facility] 05-26-2023 18:53-0500 Diastolic blood pressure 79 mm[Hg] Carlos Coates [facility] 05-26-2023 18:53-0500 Heart rate 99 /min Carlos Coates [facility] 05-26-2023 18:53-0500 Respiratory rate 18 /min Carlos Coates [facility] 05-26-2023 18:53-0500 SaO2% (BldA) [Mass fraction] 93 % Carlos Coates [facility] 05-26-2023 18:53-0500 Systolic blood pressure 143 mm[Hg] Carlos Coates [facility] 02-01-2023 23:48-0400 Nursing Progress Note Reason Other: [facility] Johny Willson [facility] 02-01-2023 23:13-0400 Diastolic blood pressure 70 mm[Hg] Johny Willson [facility] 02-01-2023 23:13-0400 Heart rate 73 /min Johny Willson [facility] 02-01-2023 23:13-0400 Mean blood pressure 93 mm[Hg] Johny Demetris [facility] 02-01-2023 23:13-0400 Nursing Progress Note Reason Other: pt aware she is being transferred to [facility]. up to bathroom Johnybhavani Willson [facility] 02-01-2023 23:13-0400 SaO2% (BldA) [Mass fraction] 93 % Johny Demetris [facility] 02-01-2023 23:13-0400 Systolic blood pressure 139 mm[Hg] Johny Demetris [facility] 02-01-2023 23:12-0400 Diastolic blood pressure 70 mm[Hg] Johny Willson [facility] 02-01-2023 23:12-0400 Heart rate 71 /min Johny Demetris [facility] 02-01-2023 23:12-0400 Respiratory rate 16 /min Johny Demetris [facility] 02-01-2023 23:12-0400 SaO2% (BldA) [Mass fraction] 93 % Johnybhavani Willson [facility] 02-01-2023 23:12-0400 Systolic blood pressure 139 mm[Hg] Johny Demetris [facility] 02-01-2023 23:06-0400 Nursing Progress Note Reason Other: report called to [facility]. pt resting in bed Johny Willson [facility] 02-01-2023 19:43-0400 Diastolic blood pressure 85 mm[Hg] Johny Willson [facility] 02-01-2023 19:43-0400 Heart rate 68 /min Johny Willson [facility] 02-01-2023 19:43-0400 Mean blood pressure 95 mm[Hg] Johny Willson [facility] 02-01-2023 19:43-0400 SaO2% (BldA) [Mass fraction] 94 % Johny Willson [facility] 02-01-2023 19:43-0400 Systolic blood pressure 115 mm[Hg] Johny Willson [facility] 02-01-2023 19:27-0400 Heart rate 71 /min Johny Willson [facility] 02-01-2023 19:27-0400 Respiratory rate 16 /min Johny Willson [facility] 02-01-2023 15:08-0400 Body temperature 98.42 [degF] Johny Willson [facility] 02-01-2023 15:08-0400 Heart rate 70 /min Johny Willson [facility] 02-01-2023 15:08-0400 Respiratory rate 16 /min Johny Willson [facility] 01-30-2023 13:21-0400 Body weight 51.71 kg Nurse Namrata Work Phone: [facility] 01-30-2023 13:21-0400 Diastolic blood pressure 78 mm[Hg] Nurse Namrata Work Phone: [facility] 01-30-2023 13:21-0400 Heart rate 77 /min Nurse Namrata Work Phone: [facility] 01-30-2023 13:21-0400 Systolic blood pressure 128 mm[Hg] Nurse Namrata Work Phone: [facility] 01-29-2023 14:30-0400 Diastolic blood pressure 55 mm[Hg] Frantz Santana APRN.CNP Work Phone: [facility] 01-29-2023 14:30-0400 Heart rate 63 /min Frantz Santana BAND EDGER.SODA JERKER Work Phone: [facility] 01-29-2023 14:30-0400 Systolic blood pressure 132 mm[Hg] Frantz Santana BAND EDGER.SODA JERKER Work Phone: [facility] 01-06-2023 17:51-0400 Body temperature 98.24 [degF] Chandan Adhikari [facility] 01-06-2023 17:51-0400 Diastolic blood pressure 68 mm[Hg] Chandan Adhikari [facility] 01-06-2023 17:51-0400 Heart rate 82 /min Chandan Adhikari [facility] 01-06-2023 17:51-0400 Respiratory rate 16 /min Chandan Adhikari [facility] 01-06-2023 17:51-0400 SaO2% (BldA) [Mass fraction] 97 % Chandan Adhikari [facility] 01-06-2023 17:51-0400 Systolic blood pressure 104 mm[Hg] Chandan Adhikari [facility] 01-04-2023 15:01-0400 Diastolic blood pressure 52 mm[Hg] Chandan Adhikari [facility] 01-04-2023 15:01-0400 Heart rate 57 /min Chandan Adhikari [facility] 01-04-2023 15:01-0400 Mean blood pressure 72 mm[Hg] Chandan Adhikari [facility] 01-04-2023 15:01-0400 Respiratory rate 17 /min Chandan Adhikari [facility] 01-04-2023 15:01-0400 SaO2% (BldA) [Mass fraction] 96 % Chandan Adhikari [facility] 01-04-2023 15:01-0400 Systolic blood pressure 112 mm[Hg] Chandan Adhikari [facility] 12-29-2022 14:01-0400 Diastolic blood pressure 65 mm[Hg] Carlos Coates [facility] 12-29-2022 14:01-0400 Heart rate 58 /min Carlos Jaxon [facility] 12-29-2022 14:01-0400 Mean blood pressure 83 mm[Hg] Carlos Jaxon [facility] 12-29-2022 14:01-0400 Respiratory rate 18 /min Carlos Jaxon [facility] 12-29-2022 14:01-0400 SaO2% (BldA) [Mass fraction] 94 % Carlos Jaxon [facility] 12-29-2022 14:01-0400 Systolic blood pressure 120 mm[Hg] Carlos Jaxon [facility] 12-29-2022 12:36-0400 Body temperature 99.14 [degF] Carlos Jaxon [facility] 12-29-2022 12:36-0400 Diastolic blood pressure 65 mm[Hg] Carlos Jaxon [facility] 12-29-2022 12:36-0400 Heart rate 61 /min Carlos Jaxon [facility] 12-29-2022 12:36-0400 Respiratory rate 16 /min Carlos Jaxon [facility] 12-29-2022 12:36-0400 SaO2% (BldA) [Mass fraction] 94 % Carlos Jaxon [facility] 12-29-2022 12:36-0400 Systolic blood pressure 125 mm[Hg] Carlos Coates [facility] 12-23-2022 15:00-0400 SaO2% (BldA) [Mass fraction] 96 % [facility] 12-23-2022 14:30-0400 Diastolic blood pressure 60 mm[Hg] [facility] 12-23-2022 14:30-0400 Heart rate 62 /min [facility] 12-23-2022 14:30-0400 Mean blood pressure 82 mm[Hg] [facility] 12-23-2022 14:30-0400 Respiratory rate 20 /min [facility] 12-23-2022 14:30-0400 SaO2% (BldA) [Mass fraction] 95 % [facility] 12-23-2022 14:30-0400 Systolic blood pressure 125 mm[Hg] [facility] 12-23-2022 13:31-0400 Body temperature 98.42 [degF] [facility] 12-23-2022 13:31-0400 Diastolic blood pressure 67 mm[Hg] [facility] 12-23-2022 13:31-0400 Heart rate 72 /min [facility] 12-23-2022 13:31-0400 Respiratory rate 20 /min [facility] 12-23-2022 13:31-0400 SaO2% (BldA) [Mass fraction] 93 % [facility] 12-23-2022 13:31-0400 Systolic blood pressure 129 mm[Hg] [facility] 12-23-2022 13:13-0400 Body temperature 98.42 [degF] [facility] 12-23-2022 13:13-0400 Diastolic blood pressure 71 mm[Hg] [facility] 12-23-2022 13:13-0400 Heart rate 78 /min [facility] 12-23-2022 13:13-0400 Respiratory rate 19 /min [facility] 12-23-2022 13:13-0400 Systolic blood pressure 127 mm[Hg] [facility] 06-11-2022 12:30-0500 Body height 157.48 cm Clark Mary Other [facility] [employer] Other 06-11-2022 12:30-0500 Diastolic blood pressure 70 mm[Hg] Clark Hernandez Other [facility] [facility] [employer] Other 06-11-2022 12:30-0500 SaO2% (BldA) [Mass fraction] 95 % Clark Hernandez Other [facility] [facility] [employer] Other 06-11-2022 12:30-0500 Systolic blood pressure 110 mm[Hg] Clark Hernandez Other [facility] [employer] Other 06-11-2022 07:30-0500 Body temperature 98 [degF] DO Tomas Garcia Work Phone: [facility] 06-11-2022 07:30-0500 Diastolic blood pressure 66 mm[Hg] DO Tomas Garcia Work Phone: [facility] 06-11-2022 07:30-0500 Heart rate 89 /min DO Tomas Garcia Work Phone: [facility] 06-11-2022 07:30-0500 Respiratory rate 18 /min DO Tomas Garcia Work Phone: [facility] 06-11-2022 07:30-0500 SaO2% (BldA) [Mass fraction] 94 % DO Tomas Garcia Work Phone: [facility] 06-11-2022 07:30-0500 Systolic blood pressure 101 mm[Hg] DO Tomas Garcia Work Phone: [facility] 06-10-2022 18:17-0500 Body height 154.94 cm DO Tomas Garcia Work Phone: [facility] 06-10-2022 09:00-0500 Body weight 55 kg DO Tomas Garcia Work Phone: [facility] 05-25-2022 16:00-0500 Diastolic blood pressure 91 mm[Hg] Santiago Len [facility] 05-25-2022 16:00-0500 Heart rate 79 /min Santiago Len [facility] 05-25-2022 16:00-0500 Mean blood pressure 106 mm[Hg] Santiago Len [facility] 05-25-2022 16:00-0500 SaO2% (BldA) [Mass fraction] 97 % Santiago Len [facility] 05-25-2022 16:00-0500 Systolic blood pressure 137 mm[Hg] Santiago Len [facility] 05-25-2022 15:30-0500 Diastolic blood pressure 78 mm[Hg] Santiago Len [facility] 05-25-2022 15:30-0500 Heart rate 88 /min Santiago Len [facility] 05-25-2022 15:30-0500 Mean blood pressure 101 mm[Hg] Santiago Len [facility] 05-25-2022 15:30-0500 Respiratory rate 21 /min Santiago Len [facility] 05-25-2022 15:30-0500 SaO2% (BldA) [Mass fraction] 95 % Santiago Len [facility] 05-25-2022 15:30-0500 Systolic blood pressure 146 mm[Hg] Santiago Len [facility] 05-25-2022 14:31-0500 Diastolic blood pressure 83 mm[Hg] Santiago Len [facility] 05-25-2022 14:31-0500 Heart rate 95 /min Santiago Len [facility] 05-25-2022 14:31-0500 Mean blood pressure 107 mm[Hg] Santiago Len [facility] 05-25-2022 14:31-0500 Respiratory rate 19 /min Santiago Len [facility] 05-25-2022 14:31-0500 SaO2% (BldA) [Mass fraction] 94 % Santiago Len [facility] 05-25-2022 14:31-0500 Systolic blood pressure 156 mm[Hg] Santiago Len [facility] 05-25-2022 14:01-0500 Heart rate 104 /min Santiago Len [facility] 05-25-2022 13:00-0500 Heart rate 110 /min Santiago Len [facility] 05-25-2022 11:00-0500 Heart rate 87 /min Santiago Len [facility] 05-25-2022 07:00-0500 Body temperature 98.24 [degF] Santiago Len [facility] 05-25-2022 05:00-0500 Body temperature 98.6 [degF] Santaigo Len [facility] 05-24-2022 22:00-0500 gluc 91 mg/dL Santiago Len [facility] 05-24-2022 22:00-0500 gluc Santiago Len [facility] 05-03-2022 11:50-0500 Body temperature 97.88 [degF] Chandan Adhikari [facility] 05-03-2022 11:50-0500 Diastolic blood pressure 67 mm[Hg] Chandan Adhikari [facility] 05-03-2022 11:50-0500 Heart rate 100 /min Chandan Adhikari [facility] 05-03-2022 11:50-0500 Respiratory rate 16 /min Chandan Adhikari [facility] 05-03-2022 11:50-0500 SaO2% (BldA) [Mass fraction] 95 % Chandan Adhikari [facility] 05-03-2022 11:50-0500 Systolic blood pressure 124 mm[Hg] Chandan Adhikari [facility] 05-02-2022 21:43-0500 Body temperature 97.52 [degF] Speedyylbhavanin Dokken [facility] 05-02-2022 21:43-0500 Diastolic blood pressure 81 mm[Hg] Kaylinn Dokken [facility] 05-02-2022 21:43-0500 Heart rate 85 /min Speedyylinn Dokken [facility] 05-02-2022 21:43-0500 Respiratory rate 20 /min Speedyylinn Dokken [facility] 05-02-2022 21:43-0500 SaO2% (BldA) [Mass fraction] 100 % Mati Taylor [facility] 05-02-2022 21:43-0500 Systolic blood pressure 125 mm[Hg] Mati Taylor [facility] 04-25-2022 14:04-0500 Blood Pressure Location Tomas JOSE [facility] 04-25-2022 14:04-0500 Body temperature 98.06 [degF] Tomas GARCIA [facility] 04-25-2022 14:04-0500 Diastolic blood pressure 60 mm[Hg] Tomas GARCIA [facility] 04-25-2022 14:04-0500 Heart rate 58 /min Tomas GARCIA [facility] 04-25-2022 14:04-0500 SaO2% (BldA) [Mass fraction] 95 % Tomas GARCIA [facility] 04-25-2022 14:04-0500 Systolic blood pressure 126 mm[Hg] Tomas GARCIA [facility] 04-19-2022 12:09-0500 Diastolic blood pressure 67 mm[Hg] Hasan AMIR [facility] 04-19-2022 12:09-0500 Heart rate 61 /min Hasan AMIR [facility] 04-19-2022 12:09-0500 Mean blood pressure 85 mm[Hg] Hasan AMIR [facility] 04-19-2022 12:09-0500 SaO2% (BldA) [Mass fraction] 93 % Hasan AMIR [facility] 04-19-2022 12:09-0500 Systolic blood pressure 122 mm[Hg] Hasan AMIR [facility] 04-19-2022 12:00-0500 Body temperature 96.26 [degF] Hasan AMIR [facility] 04-19-2022 12:00-0500 Hourly Rounding Hasan AMIR [facility] 04-19-2022 11:00-0500 Hourly Rounding Hasan AMIR [facility] 04-19-2022 10:00-0500 Hourly Rounding Hasan AMIR [facility] 04-19-2022 08:48-0500 Blood Pressure Location Hasan AMIR [facility] 04-19-2022 08:48-0500 Body temperature 98.06 [degF] Hasan AMIR [facility] 04-19-2022 08:48-0500 BP/Pulse Patient Position Hasan AMIR [facility] 04-19-2022 08:48-0500 Diastolic blood pressure 60 mm[Hg] Hasan AMIR [facility] 04-19-2022 08:48-0500 Heart rate 60 /min Hasan AMIR [facility] 04-19-2022 08:48-0500 Mean blood pressure 75 mm[Hg] Hasan AMIR [facility] 04-19-2022 08:48-0500 Respiratory rate 18 /min Hasan AMIR [facility] 04-19-2022 08:48-0500 SaO2% (BldA) [Mass fraction] 92 % Hasan AMIR [facility] 04-19-2022 08:48-0500 Systolic blood pressure 105 mm[Hg] Hasan AMIR [facility] 04-18-2022 23:50-0500 Body temperature 97.52 [degF] Hasan AMIR [facility] 04-18-2022 23:50-0500 Diastolic blood pressure 57 mm[Hg] Hasan AMIR [facility] 04-18-2022 23:50-0500 Heart rate 54 /min Hasan AMIR [facility] 04-18-2022 23:50-0500 Mean blood pressure 70 mm[Hg] Hasan AMIR [facility] 04-18-2022 23:50-0500 SaO2% (BldA) [Mass fraction] 92 % Hasan AMIR [facility] 04-18-2022 23:50-0500 Systolic blood pressure 96 mm[Hg] Hasan AMIR [facility] 04-18-2022 23:50-0500 Respiratory rate 17 /min Hasan AMIR [facility] 04-18-2022 23:00-0500 Blood Pressure Location Hasan AMIR [facility] 04-18-2022 23:00-0500 Promise to Return Hasan AMIR [facility] 04-18-2022 22:12-0500 Promise to Return Hasan AMIR [facility] 04-18-2022 21:00-0500 Promise to Return Hasan AMIR [facility] 04-18-2022 19:00-0500 Mean blood pressure 71 mm[Hg] Hasan AMIR [facility] 04-18-2022 19:00-0500 Respiratory rate 14 /min Hasan AMIR [facility] 04-18-2022 15:55-0500 BP/Pulse Patient Position Hasan AMIR [facility] 04-18-2022 15:55-0500 Mean blood pressure 72 mm[Hg] Hasan AMIR [facility] 04-18-2022 00:00-0500 Respiratory rate 16 /min Hasan AMIR [facility] 04-17-2022 16:15-0500 Heart rate 58 /min Hasan AMIR [facility] 04-17-2022 15:17-0500 Mean blood pressure 77 mm[Hg] Hasan AMIR [facility] 04-17-2022 10:18-0500 Heart rate 56 /min Hasan AMIR [facility] 03-04-2022 13:17-0400 Blood Pressure Location [facility] [employer] [facility] 03-04-2022 13:17-0400 Body temperature 98.06 [degF] Tatum Orzech [facility] 03-04-2022 13:17-0400 Diastolic blood pressure 66 mm[Hg] Tatum Orzech [facility] 03-04-2022 13:17-0400 Heart rate 72 /min Tatum Orzech [facility] 03-04-2022 13:17-0400 SaO2% (BldA) [Mass fraction] 94 % Tatum Orzech [facility] 03-04-2022 13:17-0400 Systolic blood pressure 122 mm[Hg] Tatum Liang [facility] 02-17-2022 21:30-0400 Diastolic blood pressure 76 mm[Hg] [facility] 02-17-2022 21:30-0400 Heart rate 68 /min [facility] 02-17-2022 21:30-0400 Respiratory rate 18 /min [facility] 02-17-2022 21:30-0400 SaO2% (BldA) [Mass fraction] 95 % [facility] 02-17-2022 21:30-0400 Systolic blood pressure 148 mm[Hg] [facility] 02-17-2022 19:30-0400 Diastolic blood pressure 78 mm[Hg] [facility] 02-17-2022 19:30-0400 Heart rate 69 /min [facility] 02-17-2022 19:30-0400 Hourly Rounding [facility] 02-17-2022 19:30-0400 Nursing Progress Note Reason Other: Pt aware of POC. Resting on cart. [facility] 02-17-2022 19:30-0400 Respiratory rate 18 /min [facility] 02-17-2022 19:30-0400 SaO2% (BldA) [Mass fraction] 94 % [facility] 02-17-2022 19:30-0400 Systolic blood pressure 157 mm[Hg] [facility] 02-17-2022 16:02-0400 Body temperature 98.6 [degF] [facility] 02-17-2022 16:02-0400 Diastolic blood pressure 83 mm[Hg] [facility] 02-17-2022 16:02-0400 Heart rate 77 /min [facility] 02-17-2022 16:02-0400 Respiratory rate 18 /min [facility] 02-17-2022 16:02-0400 SaO2% (BldA) [Mass fraction] 94 % [facility] 02-17-2022 16:02-0400 Systolic blood pressure 158 mm[Hg] [facility] 02-15-2022 15:01-0400 Body temperature 98.24 [degF] Johnybhavani Willson [facility] 02-15-2022 15:01-0400 Diastolic blood pressure 83 mm[Hg] Johny Demetris [facility] 02-15-2022 15:01-0400 Heart rate 78 /min Johny Demetris [facility] 02-15-2022 15:01-0400 Respiratory rate 18 /min Johny Demetris [facility] 02-15-2022 15:01-0400 SaO2% (BldA) [Mass fraction] 94 % Johny Demetris [facility] 02-15-2022 15:01-0400 Systolic blood pressure 121 mm[Hg] Johny Demetris [facility] 02-13-2022 12:20-0400 Diastolic blood pressure 61 mm[Hg] Johny Demetris [facility] 02-13-2022 12:20-0400 Heart rate 62 /min Johny Demetris [facility] 02-13-2022 12:20-0400 Mean blood pressure 82 mm[Hg] Johny Demetris [facility] 02-13-2022 12:20-0400 Respiratory rate 21 /min Johny Demetris [facility] 02-13-2022 12:20-0400 SaO2% (BldA) [Mass fraction] 96 % Johny Willson [facility] 02-13-2022 12:20-0400 Systolic blood pressure 123 mm[Hg] Johny Willson [facility] 02-13-2022 11:46-0400 Body temperature 98.6 [degF] Johny iWllson [facility] 02-13-2022 11:46-0400 Diastolic blood pressure 56 mm[Hg] Johny Willson [facility] 02-13-2022 11:46-0400 Heart rate 56 /min Johny Willson [facility] 02-13-2022 11:46-0400 Respiratory rate 20 /min Johny Willson [facility] 02-13-2022 11:46-0400 SaO2% (BldA) [Mass fraction] 96 % Johny Willson [facility] 02-13-2022 11:46-0400 Systolic blood pressure 127 mm[Hg] Johny Willson [facility] 02-07-2022 13:57-0400 Diastolic blood pressure 75 mm[Hg] Quynh Raines MD Work Phone: [facility] 02-07-2022 13:57-0400 Heart rate 76 /min Quynh Raines MD Work Phone: [facility] 02-07-2022 13:57-0400 Systolic blood pressure 118 mm[Hg] Quynh Raines MD Work Phone: [facility] 02-07-2022 13:06-0400 Body weight 51.71 kg Quynh Raines MD Work Phone: [facility] 02-05-2022 11:44-0400 Hourly Rounding [facility] 02-05-2022 11:44-0400 Promise to Return [facility] 02-05-2022 10:18-0400 Hourly Rounding [facility] 02-05-2022 10:18-0400 Promise to Return [facility] 02-05-2022 09:15-0400 Hourly Rounding [facility] 02-05-2022 09:15-0400 Promise to Return [facility] 02-05-2022 07:18-0400 Blood Pressure Location [facility] 02-05-2022 07:18-0400 BP/Pulse Patient Position [facility] 02-05-2022 07:18-0400 Diastolic blood pressure 66 mm[Hg] [facility] 02-05-2022 07:18-0400 Heart rate 58 /min [facility] 02-05-2022 07:18-0400 Mean blood pressure 83 mm[Hg] [facility] 02-05-2022 07:18-0400 SaO2% (BldA) [Mass fraction] 94 % [facility] 02-05-2022 07:18-0400 Systolic blood pressure 117 mm[Hg] [facility] 02-05-2022 04:00-0400 Body temperature 97.34 [degF] [facility] 02-05-2022 04:00-0400 Heart rate 70 /min [facility] 02-05-2022 04:00-0400 Mean blood pressure 82 mm[Hg] [facility] 02-05-2022 04:00-0400 Respiratory rate 16 /min [facility] 02-05-2022 04:00-0400 SaO2% (BldA) [Mass fraction] 92 % [facility] 02-05-2022 04:00-0400 Systolic blood pressure 115 mm[Hg] [facility] 02-04-2022 20:00-0400 Diastolic blood pressure 47 mm[Hg] [facility] 02-04-2022 20:00-0400 Systolic blood pressure 118 mm[Hg] [facility] 02-04-2022 19:00-0400 Blood Pressure Location [facility] 02-04-2022 19:00-0400 Body temperature 97.52 [degF] [facility] 02-04-2022 19:00-0400 BP/Pulse Patient Position [facility] 02-04-2022 19:00-0400 Heart rate 62 /min [facility] 02-04-2022 19:00-0400 SaO2% (BldA) [Mass fraction] 91 % [facility] 02-04-2022 16:30-0400 Body temperature 97.7 [degF] [facility] 02-04-2022 16:30-0400 Mean blood pressure 95 mm[Hg] [facility] 02-04-2022 16:30-0400 Respiratory rate 16 /min [facility] 02-04-2022 11:51-0400 Body temperature 96.44 [degF] [facility] 02-04-2022 11:51-0400 Mean blood pressure 91 mm[Hg] [facility] 02-04-2022 07:31-0400 Mean blood pressure 80 mm[Hg] [facility] 02-04-2022 05:45-0400 Mean blood pressure 85 mm[Hg] [facility] 02-04-2022 05:45-0400 Respiratory rate 14 /min [facility] 02-04-2022 00:40-0400 Respiratory rate 17 /min [facility] 02-03-2022 19:00-0400 Respiratory rate 16 /min [facility] 02-03-2022 16:55-0400 Heart rate 55 /min [facility] 02-03-2022 10:00-0400 Heart rate 54 /min [facility] 02-01-2022 07:55-0400 Diastolic blood pressure 74 mm[Hg] Kaylinn Dokken [facility] 02-01-2022 07:55-0400 Heart rate 58 /min Kaylinn Dokken [facility] 02-01-2022 07:55-0400 Mean blood pressure 96 mm[Hg] Kaylinn Dokken [facility] 02-01-2022 07:55-0400 Respiratory rate 20 /min Kaylinn Dokken [facility] 02-01-2022 07:55-0400 SaO2% (BldA) [Mass fraction] 96 % Kaylinn Dokken [facility] 02-01-2022 07:55-0400 Systolic blood pressure 139 mm[Hg] Kaylinn Dokken [facility] 02-01-2022 06:35-0400 Body temperature 97.7 [degF] Kaylinn Dokken [facility] 02-01-2022 06:35-0400 Diastolic blood pressure 74 mm[Hg] Kaylinn Dokken [facility] 02-01-2022 06:35-0400 Heart rate 64 /min Kaylinn Dokken [facility] 02-01-2022 06:35-0400 Respiratory rate 20 /min Kaylinn Dokken [facility] 02-01-2022 06:35-0400 SaO2% (BldA) [Mass fraction] 98 % Kaylinn Dokken [facility] 02-01-2022 06:35-0400 Systolic blood pressure 134 mm[Hg] Kaylinn Dokken [facility] 02-01-2022 06:15-0400 Body temperature 96.98 [degF] Kaylinn Dokken [facility] 02-01-2022 06:15-0400 Diastolic blood pressure 65 mm[Hg] Kaylinn Dokken [facility] 02-01-2022 06:15-0400 Heart rate 69 /min Kaylinn Dokken [facility] 02-01-2022 06:15-0400 Respiratory rate 18 /min Kaylinn Dokken [facility] 02-01-2022 06:15-0400 SaO2% (BldA) [Mass fraction] 96 % Kaylinn Dokken [facility] 02-01-2022 06:15-0400 Systolic blood pressure 160 mm[Hg] Kaylinn Dokken [facility] 01-31-2022 04:19-0400 Diastolic blood pressure 62 mm[Hg] Kaylinn Dokken [facility] 01-31-2022 04:19-0400 Heart rate 60 /min Kaylinn Dokken [facility] 01-31-2022 04:19-0400 Hourly Rounding Kaylinn Dokken [facility] 01-31-2022 04:19-0400 Respiratory rate 18 /min Kaylinn Dokken [facility] 01-31-2022 04:19-0400 SaO2% (BldA) [Mass fraction] 92 % Kaylinn Dokken [facility] 01-31-2022 04:19-0400 Systolic blood pressure 136 mm[Hg] Kaylinn Dokken [facility] 01-31-2022 03:36-0400 Body temperature 98.06 [degF] Kaylinn Dokken [facility] 01-31-2022 03:36-0400 Diastolic blood pressure 66 mm[Hg] Kaylinn Dokken [facility] 01-31-2022 03:36-0400 Heart rate 67 /min Kaylinn Dokken [facility] 01-31-2022 03:36-0400 Hourly Rounding Kaylinn Dokken [facility] 01-31-2022 03:36-0400 Respiratory rate 18 /min Kaylinn Dokken [facility] 01-31-2022 03:36-0400 SaO2% (BldA) [Mass fraction] 94 % Kaylinn Dokken [facility] 01-31-2022 03:36-0400 Systolic blood pressure 144 mm[Hg] Kaylinn Dokken [facility] 01-30-2022 20:30-0400 Diastolic blood pressure 72 mm[Hg] Kaylinn Dokken [facility] 01-30-2022 20:30-0400 Heart rate 69 /min Kaylinn Dokken [facility] 01-30-2022 20:30-0400 Respiratory rate 21 /min Kaylinn Dokken [facility] 01-30-2022 20:30-0400 SaO2% (BldA) [Mass fraction] 94 % Kaylinn Dokken [facility] 01-30-2022 20:30-0400 Systolic blood pressure 136 mm[Hg] Kaylinn Dokken [facility] 01-30-2022 19:02-0400 Body temperature 97.52 [degF] Kaylinn Dokken [facility] 01-30-2022 19:02-0400 Diastolic blood pressure 66 mm[Hg] Kaylinn Dokken [facility] 01-30-2022 19:02-0400 Heart rate 67 /min Kaylinn Dokken [facility] 01-30-2022 19:02-0400 SaO2% (BldA) [Mass fraction] 95 % Kaylinn Dokken [facility] 01-30-2022 19:02-0400 Systolic blood pressure 138 mm[Hg] Kaylinn Dokken [facility] 01-30-2022 19:00-0400 Hourly Rounding Kaylinn Dokken [facility] 01-30-2022 19:00-0400 Promise to Return Kaylinn Dokken [facility] 01-15-2022 15:40-0400 Blood Pressure Location JHONATAN SIDELL [facility] 01-15-2022 15:40-0400 Body temperature 97.52 [degF] JHONATAN SIDELL [facility] 01-15-2022 15:40-0400 Diastolic blood pressure 70 mm[Hg] JHONATAN SIDELL [facility] 01-15-2022 15:40-0400 Heart rate 70 /min JHONATAN SIDELL [facility] 01-15-2022 15:40-0400 SaO2% (BldA) [Mass fraction] 97 % JHONATAN SIDELL [facility] 01-15-2022 15:40-0400 Systolic blood pressure 116 mm[Hg] JHONATAN SIDELL [facility] 01-14-2022 16:41-0400 Body temperature 98.42 [degF] Chandan Onofre [facility] 01-14-2022 16:41-0400 Diastolic blood pressure 80 mm[Hg] Chandan Onofre [facility] 01-14-2022 16:41-0400 Heart rate 71 /min Chandan Onofre [facility] 01-14-2022 16:41-0400 Respiratory rate 18 /min Chandan Onofre [facility] 01-14-2022 16:41-0400 SaO2% (BldA) [Mass fraction] 96 % Chandan Onofre [facility] 01-14-2022 16:41-0400 Systolic blood pressure 124 mm[Hg] Chandan Adhikari [facility] 2022 16:04-0400 Body weight 60.33 kg Frantz Santana [employer] Work Phone: [facility] 2022 16:04-0400 Diastolic blood pressure 57 mm[Hg] Frantz Santana [employer] Work Phone: [facility] 2022 16:04-0400 Heart rate 55 /min Frantz Santana [employer] Work Phone: [facility] 2022 16:04-0400 Systolic blood pressure 107 mm[Hg] Frantz Santana [employer] Work Phone: [facility] 12-20-2021 13:54-0400 Body temperature 97.88 [degF] [facility] 12-20-2021 13:54-0400 Diastolic blood pressure 65 mm[Hg] [facility] 12-20-2021 13:54-0400 Heart rate 80 /min [facility] 12-20-2021 13:54-0400 Respiratory rate 18 /min [facility] 12-20-2021 13:54-0400 SaO2% (BldA) [Mass fraction] 94 % [facility] 12-20-2021 13:54-0400 Systolic blood pressure 116 mm[Hg] [facility] 12-17-2021 13:45-0400 Hourly Rounding Zeyadselene Reddyer [facility] 12-17-2021 11:00-0400 Body temperature 98.06 [degF] Zeyad Zachary [facility] 12-17-2021 11:00-0400 Diastolic blood pressure 68 mm[Hg] Zeyad Zachary [facility] 12-17-2021 11:00-0400 Heart rate 59 /min Zeyad Zachary [facility] 12-17-2021 11:00-0400 SaO2% (BldA) [Mass fraction] 94 % Zeyad Zachary [facility] 12-17-2021 11:00-0400 Systolic blood pressure 131 mm[Hg] Zeyad Zachary [facility] 12-17-2021 08:38-0400 Diastolic blood pressure 69 mm[Hg] Zeyad Zachary [facility] 12-17-2021 08:38-0400 Systolic blood pressure 127 mm[Hg] Zeyad Zachary [facility] 12-17-2021 08:37-0400 Hourly Rounding Zeyad Zachary [facility] 12-17-2021 08:00-0400 Promise to Return Zeyad Zachary [facility] 12-17-2021 07:59-0400 Body temperature 97.88 [degF] Zeyad Zachary [facility] 12-17-2021 07:59-0400 Diastolic blood pressure 69 mm[Hg] Zeyad Zachary [facility] 12-17-2021 07:59-0400 Heart rate 65 /min Zeyad Zachary [facility] 12-17-2021 07:59-0400 Mean blood pressure 89 mm[Hg] Zeyad Zachary [facility] 12-17-2021 07:59-0400 SaO2% (BldA) [Mass fraction] 92 % Zeyad Zachary [facility] 12-17-2021 07:59-0400 Systolic blood pressure 127 mm[Hg] Zeyad Zachary [facility] [facility] 12-17-2021 07:00-0400 Hourly Rounding Zeyad Azchary [facility] 12-17-2021 07:00-0400 Promise to Return Zeyad Zachary [facility] 12-17-2021 06:42-0400 Promise to Return Zeyad Zachary [facility] 12-17-2021 00:00-0400 Body temperature 98.06 [degF] Zeyad Zachary [facility] 12-17-2021 00:00-0400 Heart rate 60 /min Zeyad Zachary [facility] 12-17-2021 00:00-0400 SaO2% (BldA) [Mass fraction] 92 % Zeyad Zachary [facility] 12-16-2021 15:20-0400 Mean blood pressure 92 mm[Hg] Zeyad Zachary [facility] 12-16-2021 10:38-0400 Blood Pressure Location Zeyad Zachary [facility] 12-16-2021 10:38-0400 Heart rate 74 /min Zeyad Zachary [facility] 12-16-2021 09:30-0400 Mean blood pressure 80 mm[Hg] Zeyad Zachary [facility] 12-16-2021 09:30-0400 Respiratory rate 18 /min Zeyad Zachary [facility] 12-16-2021 07:38-0400 Heart rate 61 /min Zeyad Zachary [facility] 12-16-2021 07:38-0400 Respiratory rate 16 /min Zeyad Zachary [facility] 12-15-2021 18:58-0400 Diastolic blood pressure 69 mm[Hg] Carlos Jaxon [facility] 12-15-2021 18:58-0400 Heart rate 66 /min Carlos Jaxon [facility] 12-15-2021 18:58-0400 Mean blood pressure 94 mm[Hg] Carlos Jaxon [facility] 12-15-2021 18:58-0400 Respiratory rate 20 /min Carlos Jaxon [facility] 12-15-2021 18:58-0400 SaO2% (BldA) [Mass fraction] 93 % Carlos Jaxon [facility] 12-15-2021 18:58-0400 Systolic blood pressure 144 mm[Hg] Carlos Jaxon [facility] 12-15-2021 18:00-0400 Diastolic blood pressure 82 mm[Hg] Carlos Jaxon [facility] 12-15-2021 18:00-0400 Heart rate 68 /min Carlos Jaxon [facility] 12-15-2021 18:00-0400 Hourly Rounding Carlos Jaxon [facility] 12-15-2021 18:00-0400 Mean blood pressure 102 mm[Hg] Carlos Jaxon [facility] 12-15-2021 18:00-0400 Promise to Return Carlos Jaxon [facility] 12-15-2021 18:00-0400 Respiratory rate 18 /min Carlos Jaxon [facility] 12-15-2021 18:00-0400 Systolic blood pressure 142 mm[Hg] Carlos Jaxon [facility] 12-15-2021 17:00-0400 Diastolic blood pressure 72 mm[Hg] Carlos Jaxon [facility] 12-15-2021 17:00-0400 Heart rate 70 /min Carlos Jaxon [facility] 12-15-2021 17:00-0400 Mean blood pressure 97 mm[Hg] Carlos Jaxon [facility] 12-15-2021 17:00-0400 SaO2% (BldA) [Mass fraction] 92 % Carlos Jaxon [facility] 12-15-2021 17:00-0400 Systolic blood pressure 146 mm[Hg] Carlos Jaxon [facility] 12-15-2021 16:00-0400 Hourly Rounding Cralos Jaxon [facility] 12-15-2021 16:00-0400 Promise to Return Carlos Jaxon [facility] 12-15-2021 14:25-0400 Body temperature 98.42 [degF] Carlos Jaxon [facility] 12-15-2021 14:25-0400 Heart rate 74 /min Carlos Jaxon [facility] 12-15-2021 14:25-0400 Hourly Rounding Carlos Jaxon [facility] 12-15-2021 14:25-0400 Promise to Return Carlos Jaxon [facility] 12-15-2021 14:25-0400 Respiratory rate 16 /min Carlos Jaxon [facility] 12-14-2021 08:50-0400 Body temperature 97.7 [degF] Johny Willson [facility] 12-14-2021 08:50-0400 Diastolic blood pressure 71 mm[Hg] Johny Demetris [facility] 12-14-2021 08:50-0400 Heart rate 96 /min Johny Demetris [facility] 12-14-2021 08:50-0400 Respiratory rate 20 /min Johny Demetris [facility] 12-14-2021 08:50-0400 SaO2% (BldA) [Mass fraction] 94 % Johny Demetris [facility] 12-14-2021 08:50-0400 Systolic blood pressure 149 mm[Hg] Johny Demetris [facility] 12-09-2021 18:00-0400 Diastolic blood pressure 59 mm[Hg] Johny Spenser [facility] 12-09-2021 18:00-0400 Heart rate 72 /min Johny Spenser [facility] 12-09-2021 18:00-0400 Respiratory rate 18 /min Johny Spenser [facility] 12-09-2021 18:00-0400 SaO2% (BldA) [Mass fraction] 99 % Johny Spenser [facility] 12-09-2021 18:00-0400 Systolic blood pressure 117 mm[Hg] Johny Spenser [facility] 12-09-2021 16:47-0400 Body temperature 97.88 [degF] Johny Spenser [facility] 12-09-2021 16:47-0400 Diastolic blood pressure 72 mm[Hg] Johny Spenser [facility] 12-09-2021 16:47-0400 Heart rate 78 /min Johny Spenser [facility] 12-09-2021 16:47-0400 Respiratory rate 19 /min Johny Dueñas [facility] 12-09-2021 16:47-0400 SaO2% (BldA) [Mass fraction] 97 % Johny Dueñas [facility] 12-09-2021 16:47-0400 Systolic blood pressure 127 mm[Hg] Johny Dueñas [facility] 12-07-2021 11:43-0400 Body weight 60.33 kg Frantz [place] [employer] Work Phone: [facility] 12-07-2021 11:43-0400 Diastolic blood pressure 51 mm[Hg] Frantz [place] [employer] Work Phone: [facility] 12-07-2021 11:43-0400 Heart rate 72 /min Frantz Magdy [employer] Work Phone: [facility] 12-07-2021 11:43-0400 Systolic blood pressure 126 mm[Hg] Frantz Magdy [employer] Work Phone: [facility] 12-04-2021 14:09-0400 Body weight 60.33 kg Frantz Magdy [employer] Work Phone: [facility] 12-04-2021 14:09-0400 Diastolic blood pressure 54 mm[Hg] Frantz Magdy [employer] Work Phone: [facility] 12-04-2021 14:09-0400 Heart rate 71 /min Frantz Magdy [employer] Work Phone: [facility] 12-04-2021 14:09-0400 Systolic blood pressure 133 mm[Hg] Frantz Magdy [employer] Work Phone: [facility] 11-30-2021 14:26-0400 Body temperature 97.88 [degF] Tatum Liang [facility] 11-30-2021 14:26-0400 Diastolic blood pressure 60 mm[Hg] Tatum Orzech [facility] 11-30-2021 14:26-0400 Heart rate 72 /min Tatum Orzech [facility] 11-30-2021 14:26-0400 SaO2% (BldA) [Mass fraction] 95 % Tatum Orzech [facility] 11-30-2021 14:26-0400 Systolic blood pressure 122 mm[Hg] Tatum Orzech [facility] 11-23-2021 13:06-0400 Blood Pressure Location Rosalielorraine Lottk [facility] 11-23-2021 13:06-0400 Body temperature 97.52 [degF] Rosalie Klonk [facility] 11-23-2021 13:06-0400 Diastolic blood pressure 66 mm[Hg] Rosalie Klonk [facility] 11-23-2021 13:06-0400 Heart rate 76 /min Rosalie Klonk [facility] 11-23-2021 13:06-0400 SaO2% (BldA) [Mass fraction] 91 % Rosalie Klonk [facility] 11-23-2021 13:06-0400 Systolic blood pressure 120 mm[Hg] Rosalie Bush [facility] 11-21-2021 19:28-0400 Body temperature 98.24 [degF] Carlos Coates [facility] 11-21-2021 19:28-0400 Diastolic blood pressure 73 mm[Hg] Carlos Coates [facility] 11-21-2021 19:28-0400 Heart rate 81 /min Carlos Coates [facility] 11-21-2021 19:28-0400 Respiratory rate 16 /min Carlos Coates [facility] 11-21-2021 19:28-0400 SaO2% (BldA) [Mass fraction] 93 % Carlos Coates [facility] 11-21-2021 19:28-0400 Systolic blood pressure 141 mm[Hg] Carlos Coates [facility] 11-17-2021 18:30-0400 Diastolic blood pressure 67 mm[Hg] Chandan Adhikari [facility] 11-17-2021 18:30-0400 Heart rate 53 /min Chandan Adhikari [facility] 11-17-2021 18:30-0400 Mean blood pressure 88 mm[Hg] Chandan Onofre [facility] 11-17-2021 18:30-0400 Respiratory rate 16 /min Chandan Munoze [facility] 11-17-2021 18:30-0400 SaO2% (BldA) [Mass fraction] 94 % Chandan Onofre [facility] 11-17-2021 18:30-0400 Systolic blood pressure 129 mm[Hg] Chandan Munoze [facility] 11-17-2021 17:20-0400 Body temperature 98.42 [degF] Chandan Onofre [facility] 11-17-2021 17:20-0400 Diastolic blood pressure 76 mm[Hg] Chandan Onofre [facility] 11-17-2021 17:20-0400 Heart rate 66 /min Chandan Onofre [facility] 11-17-2021 17:20-0400 Respiratory rate 18 /min Chandan Munoze [facility] 11-17-2021 17:20-0400 SaO2% (BldA) [Mass fraction] 94 % Chandan Onofre [facility] 11-17-2021 17:20-0400 Systolic blood pressure 128 mm[Hg] Chandan Munoze [facility] 11-16-2021 15:22-0400 Body temperature 97.7 [degF] Chandan Munoze [facility] 11-16-2021 15:22-0400 Diastolic blood pressure 70 mm[Hg] Chandan Munoze [facility] 11-16-2021 15:22-0400 Heart rate 71 /min Chandan Onofre [facility] 11-16-2021 15:22-0400 Respiratory rate 14 /min Chandan Munoze [facility] 11-16-2021 15:22-0400 SaO2% (BldA) [Mass fraction] 95 % Chandan Onofre [facility] 11-16-2021 15:22-0400 Systolic blood pressure 126 mm[Hg] Chandan Onofre [facility] 11-08-2021 19:13-0400 Diastolic blood pressure 76 mm[Hg] [facility] 11-08-2021 19:13-0400 Heart rate 68 /min [facility] 11-08-2021 19:13-0400 Mean blood pressure 93 mm[Hg] [facility] 11-08-2021 19:13-0400 Respiratory rate 12 /min [facility] 11-08-2021 19:13-0400 SaO2% (BldA) [Mass fraction] 97 % [facility] 11-08-2021 19:13-0400 Systolic blood pressure 128 mm[Hg] [facility] 11-08-2021 19:00-0400 Body temperature 98.6 [degF] [facility] 11-08-2021 18:45-0400 Diastolic blood pressure 84 mm[Hg] [facility] 11-08-2021 18:45-0400 Heart rate 68 /min [facility] 11-08-2021 18:45-0400 Mean blood pressure 97 mm[Hg] [facility] 11-08-2021 18:45-0400 Respiratory rate 14 /min [facility] 11-08-2021 18:45-0400 SaO2% (BldA) [Mass fraction] 98 % [facility] 11-08-2021 18:45-0400 Systolic blood pressure 123 mm[Hg] [facility] 11-08-2021 17:20-0400 gluc 106 mg/dL [facility] 11-08-2021 17:20-0400 gluc [facility] 11-08-2021 17:12-0400 Body temperature 98.24 [degF] [facility] 11-08-2021 17:12-0400 Diastolic blood pressure 81 mm[Hg] [facility] 11-08-2021 17:12-0400 Heart rate 67 /min [facility] 11-08-2021 17:12-0400 Respiratory rate 16 /min [facility] 11-08-2021 17:12-0400 SaO2% (BldA) [Mass fraction] 93 % [facility] 11-08-2021 17:12-0400 Systolic blood pressure 116 mm[Hg] [facility] 11-07-2021 08:52-0400 Blood Pressure Location Rosalie Klonk [facility] 11-07-2021 08:52-0400 Body temperature 96.8 [degF] Rosalie Klonk [facility] 11-07-2021 08:52-0400 Diastolic blood pressure 86 mm[Hg] Rosalie Klonk [facility] 11-07-2021 08:52-0400 Heart rate 74 /min Rosalie Klonk [facility] 11-07-2021 08:52-0400 SaO2% (BldA) [Mass fraction] 96 % Rosalie Klonk [facility] 11-07-2021 08:52-0400 Systolic blood pressure 156 mm[Hg] Rosalie Klonk [facility] 11-06-2021 18:07-0400 Body temperature 98.06 [degF] Johny Willson [facility] 11-06-2021 18:07-0400 Diastolic blood pressure 62 mm[Hg] Johny Willson [facility] 11-06-2021 18:07-0400 Heart rate 82 /min Johnybhavani Willson [facility] 11-06-2021 18:07-0400 Respiratory rate 20 /min Johny Demetris [facility] 11-06-2021 18:07-0400 SaO2% (BldA) [Mass fraction] 100 % Johnybhavani Willson [facility] 11-06-2021 18:07-0400 Systolic blood pressure 153 mm[Hg] Johny Willson [facility] 10-30-2021 11:32-0400 Diastolic blood pressure 74 mm[Hg] Alison Ferreira MD Work Phone: [facility] 10-30-2021 11:32-0400 Heart rate 66 /min Alison Ferreira MD Work Phone: [facility] 10-30-2021 11:32-0400 Respiratory rate 16 /min Alison Ferreira MD Work Phone: [facility] 10-30-2021 11:32-0400 SaO2% (BldA) [Mass fraction] 93 % Alison Ferreira MD Work Phone: [facility] 10-30-2021 11:32-0400 Systolic blood pressure 157 mm[Hg] Alison Ferreira MD Work Phone: [facility] 10-27-2021 11:00-0400 Diastolic blood pressure 71 mm[Hg] Johny Willson [facility] 10-27-2021 11:00-0400 Heart rate 64 /min Johny Willson [facility] 10-27-2021 11:00-0400 Mean blood pressure 96 mm[Hg] Johny Willson [facility] 10-27-2021 11:00-0400 Respiratory rate 16 /min Johny Willson [facility] 10-27-2021 11:00-0400 SaO2% (BldA) [Mass fraction] 94 % Johny Willson [facility] 10-27-2021 11:00-0400 Systolic blood pressure 146 mm[Hg] Johny Willson [facility] 10-27-2021 09:49-0400 Body temperature 98.06 [degF] Johny Willson [facility] 10-27-2021 09:49-0400 Diastolic blood pressure 75 mm[Hg] Johny Willson [facility] 10-27-2021 09:49-0400 Heart rate 73 /min Johny Willson [facility] 10-27-2021 09:49-0400 Respiratory rate 18 /min Johny Willson [facility] 10-27-2021 09:49-0400 SaO2% (BldA) [Mass fraction] 93 % Johny Willson [facility] 10-27-2021 09:49-0400 Systolic blood pressure 154 mm[Hg] Johny Willson [facility] 10-23-2021 21:00-0400 Diastolic blood pressure 60 mm[Hg] Chandan Adhikari [facility] 10-23-2021 21:00-0400 Heart rate 64 /min Chandan Adhikari [facility] 10-23-2021 21:00-0400 Mean blood pressure 79 mm[Hg] Chandan Adhikari [facility] 10-23-2021 21:00-0400 Systolic blood pressure 116 mm[Hg] Chandan Munoze [facility] 10-23-2021 20:00-0400 Diastolic blood pressure 76 mm[Hg] Chandan Munoze [facility] 10-23-2021 20:00-0400 Heart rate 65 /min Chandan Onofre [facility] 10-23-2021 20:00-0400 Mean blood pressure 92 mm[Hg] Chandan Onofre [facility] 10-23-2021 20:00-0400 SaO2% (BldA) [Mass fraction] 93 % Chandan Onofre [facility] 10-23-2021 20:00-0400 Systolic blood pressure 125 mm[Hg] Chandan Onofre [facility] 10-23-2021 19:13-0400 gluc 111 mg/dL Chandan Onofre [facility] 10-23-2021 19:13-0400 gluc Chandan Munoze [facility] 10-23-2021 19:05-0400 Body temperature 98.6 [degF] Chandan Onofre [facility] 10-23-2021 19:05-0400 Diastolic blood pressure 70 mm[Hg] Chandan Onofre [facility] 10-23-2021 19:05-0400 Heart rate 69 /min Chandan Onofre [facility] 10-23-2021 19:05-0400 Respiratory rate 18 /min Chandan Onofre [facility] 10-23-2021 19:05-0400 SaO2% (BldA) [Mass fraction] 91 % Chandan Oonfre [facility] 10-23-2021 19:05-0400 Systolic blood pressure 138 mm[Hg] Chandan Adhikari [facility] 10-23-2021 02:03-0400 Diastolic blood pressure 64 mm[Hg] Kaylinn Dokken [facility] 10-23-2021 02:03-0400 Heart rate 66 /min Kaylinn Dokken [facility] 10-23-2021 02:03-0400 Mean blood pressure 82 mm[Hg] Kaylinn Dokken [facility] 10-23-2021 02:03-0400 Respiratory rate 16 /min Kaylinn Dokken [facility] 10-23-2021 02:03-0400 SaO2% (BldA) [Mass fraction] 92 % Kaylinn Dokken [facility] 10-23-2021 02:03-0400 Systolic blood pressure 118 mm[Hg] Kaylinn Dokken [facility] 10-23-2021 01:00-0400 Diastolic blood pressure 63 mm[Hg] Kaylinn Dokken [facility] 10-23-2021 01:00-0400 Heart rate 60 /min Kaylinn Dokken [facility] 10-23-2021 01:00-0400 Mean blood pressure 80 mm[Hg] Kaylinn Dokken [facility] 10-23-2021 01:00-0400 Respiratory rate 16 /min Kaylinn Dokken [facility] 10-23-2021 01:00-0400 SaO2% (BldA) [Mass fraction] 95 % Speedyylinn Dokken [facility] 10-23-2021 01:00-0400 Systolic blood pressure 114 mm[Hg] Kaylinn Dokken [facility] 10-23-2021 00:00-0400 Heart rate 67 /min Speedyylinn Dokken [facility] 10-23-2021 00:00-0400 SaO2% (BldA) [Mass fraction] 92 % Speedyylinn Dokken [facility] 10-22-2021 23:49-0400 Body temperature 98.78 [degF] Speedyylinn Dokken [facility] 10-22-2021 23:49-0400 Diastolic blood pressure 67 mm[Hg] Speedyylinn Dokken [facility] 10-22-2021 23:49-0400 Heart rate 72 /min Julio Cinn Dokken [facility] 10-22-2021 23:49-0400 Systolic blood pressure 125 mm[Hg] Julio Cinn Dokken [facility] 10-20-2021 08:27-0400 Hourly Rounding Chandan Adhikari [facility] 10-20-2021 08:20-0400 Diastolic blood pressure 76 mm[Hg] Chandan Onofre [facility] 10-20-2021 08:20-0400 Heart rate 90 /min Chandan Onofre [facility] 10-20-2021 08:20-0400 Respiratory rate 16 /min Chandan Onofre [facility] 10-20-2021 08:20-0400 SaO2% (BldA) [Mass fraction] 97 % Chandan Adhikari [facility] 10-20-2021 08:20-0400 Systolic blood pressure 134 mm[Hg] Chandan Adhikari [facility] 10-20-2021 07:24-0400 Diastolic blood pressure 74 mm[Hg] Chandan Adhikari [facility] 10-20-2021 07:24-0400 Heart rate 88 /min Chandan Adhikari [facility] 10-20-2021 07:24-0400 Respiratory rate 16 /min Chandan Adhikari [facility] 10-20-2021 07:24-0400 SaO2% (BldA) [Mass fraction] 98 % Chandan Adhikari [facility] 10-20-2021 07:24-0400 Systolic blood pressure 136 mm[Hg] Chandan Adhikari [facility] 10-14-2021 11:33-0400 Diastolic blood pressure 47 mm[Hg] Johny Dueñas [facility] 10-14-2021 11:33-0400 Mean blood pressure 67 mm[Hg] Johny Jaraell [facility] 10-14-2021 11:33-0400 Systolic blood pressure 106 mm[Hg] Johny Spenser [facility] 10-14-2021 11:00-0400 Heart rate 54 /min Johny Jaraell [facility] 10-14-2021 11:00-0400 SaO2% (BldA) [Mass fraction] 94 % Johny Jaraell [facility] 10-14-2021 10:26-0400 Body temperature 98.42 [degF] Johny Dueñas [facility] 10-14-2021 10:26-0400 Diastolic blood pressure 59 mm[Hg] Johnybhavani Jaraell [facility] 10-14-2021 10:26-0400 Heart rate 59 /min Johnybhavani Jaraell [facility] 10-14-2021 10:26-0400 Respiratory rate 16 /min Johny Jaraell [facility] 10-14-2021 10:26-0400 SaO2% (BldA) [Mass fraction] 93 % Johny Jaraell [facility] 10-14-2021 10:26-0400 Systolic blood pressure 123 mm[Hg] Johny Jaraell [facility] 10-12-2021 21:35-0400 Body temperature 98.06 [degF] Carlos Jaxon [facility] 10-12-2021 21:35-0400 Diastolic blood pressure 60 mm[Hg] Carlos Jaxon [facility] 10-12-2021 21:35-0400 Heart rate 70 /min Carlos Jaxon [facility] 10-12-2021 21:35-0400 Mean blood pressure 83 mm[Hg] Carlos Jaxon [facility] 10-12-2021 21:35-0400 Respiratory rate 18 /min Carlos Jaxon [facility] 10-12-2021 21:35-0400 SaO2% (BldA) [Mass fraction] 92 % Carlos Jaxon [facility] 10-12-2021 21:35-0400 Systolic blood pressure 130 mm[Hg] Carlos Jaxon [facility] 10-12-2021 20:48-0400 Body temperature 98.06 [degF] Carlos Coates [facility] 10-12-2021 20:48-0400 Diastolic blood pressure 80 mm[Hg] Carlos Coates [facility] 10-12-2021 20:48-0400 Heart rate 75 /min Carlos Coates [facility] 10-12-2021 20:48-0400 Mean blood pressure 107 mm[Hg] Carlos Coates [facility] 10-12-2021 20:48-0400 Respiratory rate 20 /min Carlos Coates [facility] 10-12-2021 20:48-0400 SaO2% (BldA) [Mass fraction] 93 % Carlos Coates [facility] 10-12-2021 20:48-0400 Systolic blood pressure 160 mm[Hg] Carlos Coates [facility] 10-04-2021 19:12-0400 Body height 154.94 cm DO Tomas Garcia Work Phone: [facility] 10-04-2021 19:12-0400 Body mass index (BMI) [Ratio] 26.7 kg/m2 DO Tomas Garcia Work Phone: [facility] 10-04-2021 19:12-0400 Body temperature 97.8 [degF] DO Tomas Garcia Work Phone: [facility] 10-04-2021 19:12-0400 Body weight 64.2 kg DO Tomas Garcia Work Phone: [facility] 10-04-2021 19:12-0400 Diastolic blood pressure 63 mm[Hg] DO Tomas Garcia Work Phone: [facility] 10-04-2021 19:12-0400 Heart rate 68 /min DO Tomas Garcia Work Phone: [facility] 10-04-2021 19:12-0400 Respiratory rate 18 /min DO Tomas Garcia Work Phone: [facility] 10-04-2021 19:12-0400 SaO2% (BldA) [Mass fraction] 96 % DO Tomas Garcia Work Phone: [facility] 10-04-2021 19:12-0400 Systolic blood pressure 150 mm[Hg] DO Tomas Garcia Work Phone: [facility] 10-03-2021 23:52-0400 Respiratory rate 16 /min Kaylinn Dokken [facility] 10-03-2021 21:53-0400 Body temperature 97.7 [degF] Kaylinn Dokken [facility] 10-03-2021 21:53-0400 Diastolic blood pressure 68 mm[Hg] Kaylinn Dokken [facility] 10-03-2021 21:53-0400 Heart rate 68 /min Kaylinn Dokken [facility] 10-03-2021 21:53-0400 Respiratory rate 18 /min Kaylinn Dokken [facility] 10-03-2021 21:53-0400 SaO2% (BldA) [Mass fraction] 94 % Kaylinn Dokken [facility] 10-03-2021 21:53-0400 Systolic blood pressure 125 mm[Hg] Kaylinn Dokken [facility] 10-01-2021 19:00-0400 Diastolic blood pressure 75 mm[Hg] Chandan Adhikari [facility] 10-01-2021 19:00-0400 Heart rate 65 /min Chandan Munoze [facility] 10-01-2021 19:00-0400 Hourly Rounding Chandan Adhikari [facility] 10-01-2021 19:00-0400 Promise to Return Chandan Adhikari [facility] 10-01-2021 19:00-0400 SaO2% (BldA) [Mass fraction] 95 % Chandan Munoze [facility] 10-01-2021 19:00-0400 Systolic blood pressure 118 mm[Hg] Chandan Munoze [facility] 10-01-2021 18:12-0400 Body temperature 98.42 [degF] Chandan Munoze [facility] 10-01-2021 18:12-0400 Diastolic blood pressure 82 mm[Hg] Chandan Munoze [facility] 10-01-2021 18:12-0400 Heart rate 68 /min Chandan Munoze [facility] 10-01-2021 18:12-0400 Respiratory rate 16 /min Chandan Munoze [facility] 10-01-2021 18:12-0400 SaO2% (BldA) [Mass fraction] 92 % Chandan Munoze [facility] 10-01-2021 18:12-0400 Systolic blood pressure 119 mm[Hg] Chandan Munoze [facility] 09-30-2021 22:00-0400 Diastolic blood pressure 68 mm[Hg] [facility] 09-30-2021 22:00-0400 Heart rate 72 /min [facility] 09-30-2021 22:00-0400 Mean blood pressure 86 mm[Hg] [facility] 09-30-2021 22:00-0400 SaO2% (BldA) [Mass fraction] 96 % [facility] 09-30-2021 22:00-0400 Systolic blood pressure 121 mm[Hg] [facility] 09-30-2021 21:06-0400 Body temperature 97.52 [degF] [facility] 09-30-2021 21:06-0400 Diastolic blood pressure 65 mm[Hg] [facility] 09-30-2021 21:06-0400 Heart rate 75 /min [facility] 09-30-2021 21:06-0400 Respiratory rate 16 /min [facility] 09-30-2021 21:06-0400 SaO2% (BldA) [Mass fraction] 95 % [facility] 09-30-2021 21:06-0400 Systolic blood pressure 120 mm[Hg] [facility] 09-17-2021 11:30-0400 Diastolic blood pressure 84 mm[Hg] Chandan Adhikari [facility] 09-17-2021 11:30-0400 Heart rate 84 /min Chandan Adhikari [facility] 09-17-2021 11:30-0400 Respiratory rate 16 /min Chandan Adhikari [facility] 09-17-2021 11:30-0400 SaO2% (BldA) [Mass fraction] 98 % Chandan Adhikari [facility] 09-17-2021 11:30-0400 Systolic blood pressure 125 mm[Hg] Chandan Munoze [facility] 09-17-2021 09:31-0400 Body temperature 97.7 [degF] Chandan Munoze [facility] 09-17-2021 09:31-0400 Diastolic blood pressure 81 mm[Hg] Chandan Adhikari [facility] 09-17-2021 09:31-0400 Heart rate 78 /min Chandan Adhikari [facility] 09-17-2021 09:31-0400 Respiratory rate 16 /min Chandan Adhikari [facility] 09-17-2021 09:31-0400 SaO2% (BldA) [Mass fraction] 96 % Chandan Adhikari [facility] 09-17-2021 09:31-0400 Systolic blood pressure 127 mm[Hg] Chandan Adhikari [facility] 09-13-2021 11:11-0400 Blood Pressure Location JHONATAN S[facility]LL [facility] 09-13-2021 11:11-0400 Body temperature 97.7 [degF] [facility] 09-13-2021 11:11-0400 Diastolic blood pressure 78 mm[Hg] [facility]ONAT[facility] SIDELL [facility] 09-13-2021 11:11-0400 Systolic blood pressure 138 mm[Hg] [facility] S[facility] 09-13-2021 10:54-0400 Blood Pressure Location [facility]ONAT[facility] S[facility] 09-08-2021 17:57-0400 Diastolic blood pressure 65 mm[Hg] DO Tomas Garcia Work Phone: [facility] 09-08-2021 17:57-0400 Heart rate 81 /min DO Tomas Garcia Work Phone: [facility] 09-08-2021 17:57-0400 Respiratory rate 18 /min DO Tomas Garcia Work Phone: [facility] 09-08-2021 17:57-0400 SaO2% (BldA) [Mass fraction] 92 % DO Tomas Garcia Work Phone: [facility] 09-08-2021 17:57-0400 Systolic blood pressure 135 mm[Hg] DO Tomas Garcia Work Phone: [facility] 09-08-2021 15:54-0400 Body height 157.48 cm DO Tomas Garcia Work Phone: [facility] 09-08-2021 15:54-0400 Body mass index (BMI) [Ratio] 25.6 kg/m2 DO Tomas Garcia Work Phone: [facility] 09-08-2021 15:54-0400 Body temperature 98.6 [degF] DO Tomas Garcia Work Phone: [facility] 09-08-2021 15:54-0400 Body weight 63.5 kg DO Tomas Garcia Work Phone: [facility] 09-08-2021 09:50-0400 Diastolic blood pressure 85 mm[Hg] Chandan Adhikari [facility] 09-08-2021 09:50-0400 Heart rate 65 /min Chandan Adhikari [facility] 09-08-2021 09:50-0400 Mean blood pressure 102 mm[Hg] Chandan Adhikari [facility] 09-08-2021 09:50-0400 Respiratory rate 15 /min Chandan Adhikari [facility] 09-08-2021 09:50-0400 SaO2% (BldA) [Mass fraction] 92 % Chandan Adhikari [facility] 09-08-2021 09:50-0400 Systolic blood pressure 135 mm[Hg] Chandan Adhikari [facility] 09-08-2021 08:39-0400 Body temperature 97.88 [degF] Chandan Adhikari [facility] 09-08-2021 08:39-0400 Diastolic blood pressure 77 mm[Hg] Chandan Adhikari [facility] 09-08-2021 08:39-0400 Heart rate 79 /min Chandan Adhikari [facility] 09-08-2021 08:39-0400 Respiratory rate 15 /min Chandan Adhikari [facility] 09-08-2021 08:39-0400 SaO2% (BldA) [Mass fraction] 94 % Chandan Adhikari [facility] 09-08-2021 08:39-0400 Systolic blood pressure 141 mm[Hg] Chandan Adhikari [facility] 09-08-2021 05:09-0400 Body temperature 96.98 [degF] Santiago Len [facility] 09-08-2021 05:09-0400 Diastolic blood pressure 88 mm[Hg] Santiago Len [facility] 09-08-2021 05:09-0400 Heart rate 86 /min Santiago Len [facility] 09-08-2021 05:09-0400 Respiratory rate 16 /min Santiago Len [facility] 09-08-2021 05:09-0400 SaO2% (BldA) [Mass fraction] 94 % Santiago Len [facility] 09-08-2021 05:09-0400 Systolic blood pressure 140 mm[Hg] Santiago Len [facility] 09-07-2021 22:35-0400 Diastolic blood pressure 74 mm[Hg] Santiago Len [facility] 09-07-2021 22:35-0400 Heart rate 75 /min Santiago Len [facility] 09-07-2021 22:35-0400 Mean blood pressure 92 mm[Hg] Santiago Len [facility] 09-07-2021 22:35-0400 Respiratory rate 15 /min Santiago Len [facility] 09-07-2021 22:35-0400 SaO2% (BldA) [Mass fraction] 90 % Santiago Len [facility] 09-07-2021 22:35-0400 Systolic blood pressure 129 mm[Hg] Santiago Len [facility] 09-07-2021 21:36-0400 Body temperature 97.7 [degF] Santiago Len [facility] 09-07-2021 21:36-0400 Diastolic blood pressure 65 mm[Hg] Santiago Len [facility] 09-07-2021 21:36-0400 Heart rate 78 /min Santiago Len [facility] 09-07-2021 21:36-0400 Respiratory rate 18 /min Santiago Len [facility] 09-07-2021 21:36-0400 SaO2% (BldA) [Mass fraction] 92 % Santiago Len [facility] 09-07-2021 21:36-0400 Systolic blood pressure 130 mm[Hg] Santiago Harrington [facility] 09-07-2021 07:55-0400 Diastolic blood pressure 62 mm[Hg] Carlos Jaxon [facility] 09-07-2021 07:55-0400 Heart rate 69 /min Carlos Jaxon [facility] 09-07-2021 07:55-0400 Mean blood pressure 85 mm[Hg] Carlos Jaxon [facility] 09-07-2021 07:55-0400 Respiratory rate 18 /min Carlos Jaxon [facility] 09-07-2021 07:55-0400 SaO2% (BldA) [Mass fraction] 95 % Carlos Jaxon [facility] 09-07-2021 07:55-0400 Systolic blood pressure 131 mm[Hg] Carlos Jaxon [facility] 09-07-2021 07:07-0400 Hourly Rounding Carlos Jaxon [facility] 09-07-2021 07:07-0400 Promise to Return Carlos Jaxon [facility] 09-07-2021 07:04-0400 Diastolic blood pressure 74 mm[Hg] Carlos Jaxon [facility] 09-07-2021 07:04-0400 Heart rate 68 /min Carlos Jaxon [facility] 09-07-2021 07:04-0400 Mean blood pressure 92 mm[Hg] Carlos Jaxon [facility] 09-07-2021 07:04-0400 Respiratory rate 18 /min Carlos Jaxon [facility] 09-07-2021 07:04-0400 SaO2% (BldA) [Mass fraction] 95 % Carlos Coates [facility] 09-07-2021 07:04-0400 Systolic blood pressure 129 mm[Hg] Carlos Coates [facility] 09-07-2021 06:15-0400 Promise to Return Carlos Coates [facility] 09-07-2021 05:44-0400 Body temperature 98.6 [degF] Carlos Coates [facility] 09-07-2021 05:44-0400 Diastolic blood pressure 85 mm[Hg] Carlos Coates [facility] 09-07-2021 05:44-0400 Heart rate 71 /min Carlos Coates [facility] 09-07-2021 05:44-0400 Respiratory rate 16 /min Carlos Coates [facility] 09-07-2021 05:44-0400 SaO2% (BldA) [Mass fraction] 98 % Carlos Coates [facility] 09-07-2021 05:44-0400 Systolic blood pressure 148 mm[Hg] Carlos Coates [facility] 09-06-2021 11:49-0400 Blood Pressure Location Tomas GARCIA [facility] 09-06-2021 11:49-0400 Body temperature 97.52 [degF] Tomas GARCIA [facility] 09-06-2021 11:49-0400 Diastolic blood pressure 64 mm[Hg] Tomas GARCIA [facility] 09-06-2021 11:49-0400 Heart rate 92 /min Tomas GARCIA [facility] 09-06-2021 11:49-0400 SaO2% (BldA) [Mass fraction] 95 % Tomas GARCIA [facility] 09-06-2021 11:49-0400 Systolic blood pressure 158 mm[Hg] Tomas GARCIA [facility] 08-08-2021 00:02-0400 Diastolic blood pressure 65 mm[Hg] DO Tomas Garcia Work Phone: [facility] 08-08-2021 00:02-0400 Heart rate 73 /min DO Tomas Garcia Work Phone: [facility] 08-08-2021 00:02-0400 Inhaled oxygen flow rate 2 L/min DO Tomas Garcia Work Phone: [facility] 08-08-2021 00:02-0400 Respiratory rate 24 /min DO Tomas Garcia Work Phone: [facility] 08-08-2021 00:02-0400 SaO2% (BldA) [Mass fraction] 93 % DO Tomas Garcia Work Phone: [facility] 08-08-2021 00:02-0400 Systolic blood pressure 137 mm[Hg] DO Tomas Garcia Work Phone: [facility] 08-07-2021 22:00-0400 Body height 157.48 cm DO Tomas Garcia Work Phone: [facility] 08-07-2021 22:00-0400 Body mass index (BMI) [Ratio] 22.8 kg/m2 DO Tomas Garcia Work Phone: [facility] 08-07-2021 22:00-0400 Body temperature 97.6 [degF] DO Tomas Garcia Work Phone: [facility] 08-07-2021 22:00-0400 Body weight 56.69 kg DO Tomas Garcia Work Phone: [facility] 07-27-2021 13:46-0500 Body height 154.94 cm DO Tomas Garcia Work Phone: [facility] 07-27-2021 13:46-0500 Body mass index (BMI) [Ratio] 26.5 kg/m2 DO Tomas Garcia Work Phone: [facility] 07-27-2021 13:46-0500 Body temperature 98.5 [degF] DO Tomas Garcia Work Phone: [facility] 07-27-2021 13:46-0500 Body weight 63.7 kg DO Tomas Garcia Work Phone: [facility] 07-27-2021 13:46-0500 Diastolic blood pressure 60 mm[Hg] DO Tomas Garcia Work Phone: [facility] 07-27-2021 13:46-0500 Heart rate 94 /min DO Tomas Garcia Work Phone: [facility] 07-27-2021 13:46-0500 Respiratory rate 18 /min DO Tomas Garcia Work Phone: [facility] 07-27-2021 13:46-0500 SaO2% (BldA) [Mass fraction] 92 % DO Tomas Garcia Work Phone: [facility] 07-27-2021 13:46-0500 Systolic blood pressure 112 mm[Hg] DO Tomas Garcia Work Phone: [facility] 07-22-2021 15:37-0500 Body height 157.48 cm DO Tomas Garcia Work Phone: [facility] 07-22-2021 15:37-0500 Body mass index (BMI) [Ratio] 25.7 kg/m2 DO Tomas Garcia Work Phone: [facility] 07-22-2021 15:37-0500 Body weight 63.95 kg DO Tomas Garcia Work Phone: [facility] 07-22-2021 15:36-0500 Body temperature 98.1 [degF] DO Tomas Garcia Work Phone: [facility] 07-22-2021 15:36-0500 Diastolic blood pressure 63 mm[Hg] DO Tomas Garcia Work Phone: [facility] 07-22-2021 15:36-0500 Heart rate 78 /min DO Tomas Garcia Work Phone: [facility] 07-22-2021 15:36-0500 Respiratory rate 20 /min DO Tomas Garcia Work Phone: [facility] 07-22-2021 15:36-0500 SaO2% (BldA) [Mass fraction] 91 % DO Tomas Garcia Work Phone: [facility] 07-22-2021 15:36-0500 Systolic blood pressure 141 mm[Hg] DO Tomas Garcia Work Phone: [facility] 07-19-2021 17:59-0500 Body temperature 97.3 [degF] DO Tomas Garcia Work Phone: [facility] 07-19-2021 17:59-0500 Diastolic blood pressure 76 mm[Hg] DO Tomas Garcia Work Phone: [facility] 07-19-2021 17:59-0500 Heart rate 66 /min DO Tomas Garcia Work Phone: [facility] 07-19-2021 17:59-0500 Respiratory rate 16 /min DO Tomas Garcia Work Phone: [facility] 07-19-2021 17:59-0500 SaO2% (BldA) [Mass fraction] 93 % DO Tomas Garcia Work Phone: [facility] 07-19-2021 17:59-0500 Systolic blood pressure 150 mm[Hg] DO Tomas Jose Work Phone: [facility] 07-19-2021 17:06-0500 Body height 154.94 cm DO Tomas Garcia Work Phone: [facility] 07-19-2021 17:06-0500 Body mass index (BMI) [Ratio] 26.6 kg/m2 DO Tomas Garcia Work Phone: [facility] 07-19-2021 17:06-0500 Body weight 63.95 kg DO Tomas Garcia Work Phone: [facility] 12-29-2020 15:43-0400 Diastolic blood pressure 35 mm[Hg] Alison Ferreira MD Work Phone: [facility] 12-29-2020 15:43-0400 Heart rate 87 /min Alison Ferreira MD Work Phone: [facility] 12-29-2020 15:43-0400 Respiratory rate 16 /min Alison Ferreira MD Work Phone: [facility] 12-29-2020 15:43-0400 SaO2% (BldA) [Mass fraction] 95 % Uparcelia Ferreira MD Work Phone: [facility] 12-29-2020 15:43-0400 Systolic blood pressure 105 mm[Hg] Alison Ferreira MD Work Phone: [facility] Encounters Encounter Date Encounter Type Care Provider Facility Start: 07-30-2024 End: 07-30-2024 Emergency department patient visit AZUL VITA Facility:[facility] [place] Start: 07-28-2024 End: 07-28-2024 Emergency department patient visit [facility] Lakshmi Hooks [facility] Start: 07-25-2024 End: 07-25-2024 [facility] Start: 07-24-2024 End: 07-24-2024 Emergency department patient visit Chandan Adhikari [facility] Start: 07-20-2024 End: 07-20-2024 Emergency department patient visit Johny Willson [facility] Start: 07-12-2024 End: 07-12-2024 Emergency department patient visit Chandan Adhikari [facility] Start: 07-06-2024 ambulatory AZUL VITA Facil ity:[facility] Start: 07-06-2024 End: 07-06-2024 ambulatory AZUL VITA Facility:[facility] Start: 07-06-2024 End: 07-06-2024 Patient encounter procedure Luz Elena Gunn [facility] Start: 07-04-2024 End: 07-04-2024 [facility] Foygen[facility] Start: 06-20-2024 End: 06-20-2024 Emergency department patient visit Johny Willson [facility] Start: 06-17-2024 End: 06-17-2024 Lab Drop off Adrian Kinsey [facility] Start: 06-17-2024 End: 06-17-2024 ambulatory AZUL VITA Facility:[facility] [place] Start: 06-17-2024 End: 06-17-2024 Patient encounter procedure Adrian Kinsey [facility] Start: 05-16-2024 End: 05-16-2024 Emergency department patient visit Didier Goddardanirudh [facility] Start: 05-10-2024 End: 05-10-2024 Emergency department patient visit Chandan Adhikari [facility] Start: 05-04-2024 End: 05-04-2024 Emergency department patient visit Didier Hooks [facility] Start: 05-03-2024 End: 05-03-2024 Emergency department patient visit Mati Staton Dokarmenmakenzie [facility] Start: 04-28-2024 End: 04-28-2024 Emergency department patient visit Chandan Adhikari [facility] Start: 04-28-2024 ambulatory Tomas Moreno y:[facility] Start: 04-26-2024 End: 04-26-2024 Emergency department patient visit Chandan Adhikari [facility] Start: 04-25-2024 End: 04-25-2024 Emergency [facility] Goddard[facility]va [facility] Start: 04-21-2024 End: 04-21-2024 Emergency department patient visit Johny Willson [facility] Start: 04-19-2024 End: 04-19-2024 Emergency [facility] Start: 04-17-2024 End: 04-17-2024 Emergency department patient visit Carlos Jaxon [facility] Start: 04-15-2024 End: 04-15-2024 ambulatory Robinson Garcia [facility] Facility:[facility] Start: 04-14-2024 End: 04-14-2024 Emergency department patient visit Johny Willson [facility] Start: 04-11-2024 End: 04-11-2024 Emergency department patient visit Carlos Coates [facility] Start: 04-08-2024 End: 04-08-2024 Emergency department patient visit [facility] Start: 04-07-2024 End: 04-07-2024 Emergency department patient visit [facility] Lakshmi [facility] Start: 04-05-2024 End: 04-06-2024 Pre-admission assessment Jose Stroud [facility] Start: 04-04-2024 End: 04-04-2024 Emergency department patient visit [facility] Start: 03-31-2024 End: 03-31-2024 ambulatory DO Tomas Garcia Work Phone: [facility] Work Phone: Start: 03-31-2024 End: 03-31-2024 Departed Referred DO Tomas Garcia Work Phone: [facility] Start: 03-29-2024 End: 03-29-2024 Patient encounter procedure Jose Staton Pocos DO Work Phone: [facility] Comment on above: Other closed intra-a rticular fracture of distal end of left radius with routine healing, subsequent encounter (Primary Dx) Start: 03-29-2024 End: 03-29-2024 ambulatory JOSE Staton POCOS Not Available Start: 03-18-2024 End: 03-18-2024 Emergency department patient visit [facility] Start: 03-15-2024 End: 03-15-2024 ambulatory ANNE MARIE POCOS Not Available Start: 03-14-2024 End: 03-16-2024 Evaluation and management of inpatient Latonya GARCIA Facility:[facility] [place] Start: 03-14-2024 End: 03-16-2024 Evaluation and management of inpatient Buddy Tirado [facility] Start: 03-12-2024 End: 03-12-2024 Emergency department patient visit [facility] Start: 03-11-2024 End: 03-11-2024 Emergency department patient visit [facility] Start: 03-09-2024 End: 03-09-2024 Emergency department patient visit Mati Taylor [facility] Start: 03-07-2024 Emergency department patient visit AZUL GORMAN Facility:[facility] [place] Start: 02-24-2024 End: 02-24-2024 Emergency department patient visit [facility] Start: 02-23-2024 End: 02-23-2024 Emergency department patient visit [facility] Start: 02-23-2024 End: 02-23-2024 Patient encounter procedure Anne Marie Pocos DO Work Phone: [facility] Comment on above: Other closed intra-a rticular fracture of distal end of left radius with routine healing, subsequent encounter (Primary Dx) Start: 02-23-2024 End: 02-23-2024 ambulatory ANNE MARIE POCOS Not Available Start: 02-11-2024 End: 02-11-2024 Emergency department patient visit [facility] Work Phone: Start: 02-11-2024 Registered Recurring DO Niranjan Garcia Work Phone: [facility] Start: 02-06-2024 End: 02-06-2024 Emergency department patient visit Chandan Adhikari [facility] Start: 02-02-2024 End: 02-02-2024 Patient encounter procedure [...] 01-30-2024 End: 01-30-2024 ambulatory DO CECI REYES Facility:[facility] [place] Start: 01-30-2024 End: 01-30-2024 Lab Drop off CECI AMY [facility] Start: 01-28-2024 End: 01-28-2024 Emergency department patient visit Didier Hooks [facility] Start: 01-27-2024 End: 01-27-2024 Bamboo flowsheet Anne Marie Pocos DO Work Phone: [facility] Start: 01-27-2024 End: 01-27-2024 Bamboo flowsheet Anne Marie Pocos DO Work Phone: [facility] Start: 01-27-2024 End: 01-27-2024 ambulatory ANNE MARIE POCOS Not Available Start: 01-21-2024 End: 01-21-2024 Orders Only Anne Marie Pocos DO Work Phone: [facility] Comment on above: Other closed intra-a rticular fracture of distal end of left radius with routine healing, subsequent encounter (Primary Dx) Start: 01-12-2024 End: 01-12-2024 ambulatory Anne Marie Pocos Facility:[facility] [place] Start: 01-12-2024 End: 01-12-2024 Clinisync Result Encounter Jose Staton Pocos DO Work Phone: [facility] External Department Unsolicited Start: 01-12-2024 End: 01-12-2024 Clinisync Result Encounter Jose Staton Pocos DO Work Phone: [facility] External Department Unsolicited Start: 01-12-2024 End: 01-12-2024 Patient encounter procedure Jose Staton Pociliana [facility] Comment on above: Other closed intra-a rticular fracture of distal end of left radius, initial encounter (Primary Dx); Closed displaced fracture of proximal phalanx of left middle finger, initial encounter; Preoperative testing Start: 01-12-2024 End: 01-12-2024 Patient encounter status Jose Staton Pocos DO Work Phone: [facility] Start: 01-12-2024 End: 01-12-2024 ambulatory JOSE Staton POCOS Not Available Start: 01-10-2024 End: 01-10-2024 Emergency department patient visit Mati Taylor [facility] Start: 01-02-2024 End: 01-02-2024 Lab Drop off Amarilis Gold [facility] Start: 01-02-2024 End: 01-02-2024 ambulatory Amarilis Gold Facility:[facility] [place] Start: 01-02-2024 End: 01-02-2024 Patient encounter procedure Amarilis Gold [facility] Start: 12-19-2023 End: 12-19-2023 ambulatory AZUL GORMAN Facility:[facility] [place] Start: 12-19-2023 End: 12-19-2023 Patient encounter procedure Gala Black [facility] Start: 12-16-2023 End: 12-16-2023 ambulatory AZUL GORMAN Facility:[facility] [place] Start: 11-07-2023 End: 11-07-2023 ambulatory Gala Black Facility:[facility] [place] Start: 11-07-2023 End: 11-07-2023 Patient encounter procedure Gala Black [facility] Start: 10-28-2023 End: 10-28-2023 ambulatory AZUL GORMAN Facility:[facility] [place] Start: 10-09-2023 End: 10-09-2023 ambulatory AZUL VITA Facility:[facility] [place] Start: 10-09-2023 End: 10-09-2023 Patient encounter procedure Gala Black [facility] Start: 09-11-2023 End: 09-12-2023 Pre-admission assessment AZUL Anthony VITA [facility] Start: 09-07-2023 End: 09-12-2023 ambulatory AZUL GORMAN Facility:[facility] [place] Start: 09-07-2023 End: 09-12-2023 Observation Ana Gandhi [facility] Start: 09-06-2023 End: 09-06-2023 Emergency department patient visit BAND EDGERLukas Mccabee Work Phone: [facility] Work Phone: Start: 08-28-2023 End: 08-29-2023 Pre-admission assessment AZUL GORMAN [facility] Start: 08-28-2023 Non-patient / Non-visit BAND EDGER Lucille nance Saffle Work Phone: [facility] Work Phone: Start: 08-27-2023 End: 09-02-2023 Evaluation and management of inpatient SVITLANA Ortiz Work Phone: [facility] [place] [id number] Work Phone: Start: 08-27-2023 End: 08-27-2023 Emergency department patient visit Johny Willson [facility] Start: 08-22-2023 End: 08-22-2023 Emergency department patient visit SVITLANA Ortiz Work Phone: [facility] Work Phone: Start: 08-21-2023 End: 08-21-2023 Emergency department patient visit Johny Willson [facility] Start: 08-19-2023 End: 08-19-2023 ambulatory AZUL GORMAN Facility:[facility] [place] Start: 08-18-2023 ambulatory Gala Moreno y:[facility] [place] Start: 08-14-2023 End: 08-14-2023 Emergency department patient visit Johny Willson [facility] Start: 08-13-2023 End: 08-13-2023 Emergency department patient visit Mati Taylor [facility] Start: 08-12-2023 End: 08-12-2023 Emergency department patient visit Mati Taylor [facility] Start: 08-09-2023 End: 08-10-2023 Emergency department patient visit Santiago Harrington [facility] Start: 08-07-2023 End: 08-07-2023 Emergency department patient visit Didier Hooks [facility] Start: 07-05-2023 End: 07-05-2023 Emergency department patient visit SVITLANA Ortiz Work Phone: [facility] Work Phone: Start: 06-19-2023 End: 06-19-2023 Lab Drop off JAMILAH Therese TURNER [facility] Start: 05-26-2023 End: 05-26-2023 Emergency department patient visit Carlos Coates [facility] Start: 03-14-2023 End: 03-14-2023 Patient encounter procedure JAMILAH Therese CUEVASSarahi [facility] Start: 02-07-2023 End: 02-08-2023 ambulatory [facility]ANT YUAN [facility] Start: 02-03-2023 End: 02-04-2023 ambulatory J[facility]ANT [facility]UAN [facility] Start: 02-03-2023 End: 02-03-2023 Subsequent hospital visit by physician Jayant Yuan MD Work Phone: [facility] Start: 02-01-2023 End: 02-01-2023 Emergency department patient visit Johny Willson [facility] Start: 01-30-2023 End: 01-30-2023 ambulatory TOMAS GARCIA Facility:[facility] Start: 01-30-2023 End: 01-30-2023 Nursing evaluation of patient and report Nurse [facility] Namrata Work Phone: Urology Comment on above: Urinary retention (P rimary Dx); Feeling of incomplete bladder emptying; Recurrent UTI Start: 01-29-2023 End: 01-29-2023 ambulatory FRANTZ SANTANA Facility:[facility] Start: 01-29-2023 End: 01-29-2023 Patient encounter procedure Frantz Santana BAND EDGER.SODA JERKER Work Phone: Urology Comment on above: Urinary retention (P rimary Dx); Urinary tract infection without hematuria, site unspecified; Pelvic floor dysfunction Start: 01-06-2023 End: 01-06-2023 Emergency department patient visit Chnadan Adhikari [facility] Start: 01-04-2023 End: 01-04-2023 Emergency department patient visit Chandan Adhikari [facility] Start: 01-04-2023 ambulatory Radha Lara RN NURSE RECONCILER Comment on above: Choi Catheter Brian mcclain Start: 12-29-2022 End: 12-29-2022 Emergency department patient visit Carlos Coates [facility] Start: 12-23-2022 End: 12-23-2022 Emergency department patient visit Didier Foygenoveva [facility] Start: 11-08-2022 End: 11-08-2022 Patient encounter procedure Patrick Anne [facility] Start: 10-18-2022 End: 10-18-2022 ambulatory LULA TREVINO . Facility:[facility] Start: 08-28-2022 End: 08-29-[address] TOMAS GARCIA Facility:[facility] Start: 06-28-2022 End: 06-28-2022 ambulatory TOMAS GARCIA [facility] Start: 06-28-2022 End: 06-28-2022 Phys/qhp telephone evaluation 11-20 min Alison Ferreira MD Work Phone: [facility] Comment on above: Post traumatic stres s disorder (PTSD) (Primary Dx); Panic disorder with agoraphobia; Bipolar 1 disorder, manic, mild (HCC) Start: 06-24-2022 Patient encounter procedure Ike Cervantes APRN.UNIFORM DESIGNER Work Phone: [facility] Start: 06-24-2022 Progress Note Ike ESCOBAR RN.UNIFORM DESIGNER Work Phone: [facility] Department Start: 06-17-2022 Patient encounter procedure Ike Cervantes APRN.UNIFORM DESIGNER Work Phone: [facility] Start: 06-17-2022 Progress Note Ike ESCOBAR RN.UNIFORM DESIGNER Work Phone: [facility] Department Start: 06-12-2022 Patient encounter procedure Matthew Tellezn Work Phone: [employer] [facility] Start: 06-12-2022 Progress Note Itri A Romaine Work Phone: [place] Start: 06-11-2022 End: 06-11-2022 ambulatory Clark Hernandez Other [facility] Other Start: 06-11-2022 Office outpatient vi sit 15 minutes Clark Hernandez [facility] Start: 06-10-2022 End: 06-10-2022 Telemedicine consultation with patient Alison Ferreira MD Work Phone: [facility] Comment on above: Bipolar 1 disorder, manic, mild (HCC) (Primary Dx); Panic disorder with agoraphobia Start: 05-28-2022 End: 05-28-2022 Patient encounter procedure Tomas GARCIA [facility] [place] Start: 05-25-2022 End: 06-11-2022 Evaluation and management of inpatient DO Tomas Garcia Work Phone: [facility] Work Phone: Start: 05-24-2022 End: 05-25-2022 Emergency department patient visit Santiago Harrington [facility] Start: 05-24-2022 End: 05-24-[address] TOMAS GARCIA Facility:[facility] Start: 05-09-2022 Refill Alison Ferreira MD Work Phone: [facility] Comment on above: Panic disorder with agoraphobia Start: 05-03-2022 End: 05-03-2022 Emergency department patient visit Chandan Adhikari [facility] Start: 05-03-2022 End: 05-03-[address] TOMAS GARCIA Facility:[facility] Start: 05-02-2022 End: 05-02-2022 Emergency department patient visit Mati Taylor [facility] Start: 04-25-2022 End: 04-25-2022 Lab Drop off Tomas GARCIA [facility] Start: 04-25-2022 End: 04-25-2022 Patient encounter procedure Tomas GARCIA [facility] [place] Start: 04-24-2022 Patient encounter procedure Ike Cervantes APRN.UNIFORM DESIGNER Work Phone: [facility] Start: 04-24-2022 Progress Note Ike ESCBOAR RN.UNIFORM DESIGNER Work Phone: [facility] Department Start: 04-22-2022 Patient encounter procedure Itri Brionna Romaine Work Phone: [employer] [facility] Start: 04-22-2022 Progress Note Itri A Romaine Work Phone: [place] [employer] Start: 04-17-2022 End: 04-19-2022 Evaluation and management of inpatient Tereso HATFIELD [facility] Start: 04-14-2022 End: 04-14-2022 ambulatory LULA TREVINO . Facility:[facility] Start: 04-12-2022 Refill Alison Ferreira MD Work Phone: [facility] Comment on above: Panic disorder with agoraphobia Start: 04-10-2022 End: 04-10-[address] DOCTOR THOMSON Facility:[facility] Start: 04-10-2022 End: 04-10-2022 Emergency department patient visit Didier Hooks [facility] Start: 04-01-2022 Telephone encounter Quynh Raines MD Work Phone: Urology Comment on above: Patient Question Start: 03-28-2022 End: 03-28-2022 Lab Drop off Tomas GARCIA [facility] Start: 03-28-2022 End: 03-28-2022 Patient encounter procedure Tomas GARCIA [facility] Start: 03-27-2022 End: 03-27-2022 Patient encounter procedure Tomas GARCIA [facility] Start: 03-11-2022 End: 03-11-2022 ambulatory TOMAS GARCIA [facility] Start: 03-04-2022 End: 03-04-2022 Lab Drop off Tatum X Orzech [facility] Start: 03-04-2022 End: 03-04-2022 Patient encounter procedure Tatum X Orzech [facility] Start: 02-19-2022 Refill Alison Ferreira MD Work Phone: [facility] Comment on above: Panic disorder with agoraphobia Start: 02-18-2022 End: 02-18-[address] DOCTOR THOMSON Facility:[facility] Start: 02-17-2022 End: 02-17-2022 Emergency department patient visit Didier Hooks [facility] Start: 02-15-2022 End: 02-15-2022 Emergency department patient visit Johny Willson [facility] Start: 02-13-2022 End: 02-13-2022 Emergency department patient visit Johny Willson [facility] Start: 02-11-2022 Telephone encounter Quynh Raines MD Work Phone: Urology Comment on above: Self Catheters/Patie nt Request Start: 02-07-2022 End: 02-07-2022 Orders Only Quynh Raines MD Work Phone: Urology Comment on above: Feeling of incomplet e bladder emptying (Primary Dx); Recurrent UTI Start: 02-06-2022 Chart abstracting Quynh Griffin Work Phone: [facility] Adult Start: 02-03-2022 End: 02-05-2022 Evaluation and management of inpatient Gumaro WELLINGTON [facility] Start: 02-01-2022 End: 02-01-2022 Emergency department patient visit Mati Taylor [facility] Start: 01-31-2022 End: 01-31-2022 Emergency department patient visit Mati Taylor [facility] Start: 01-30-2022 End: 01-30-2022 Emergency department patient visit Mati Taylor [facility] Start: 01-23-2022 Telephone encounter Frantz trent APRN.SODA JERKER Work Phone: Urology Comment on above: Patient Question (Lula guillen's RN calling from [facility] stating that a cysto procedure was to be done on the patient, but they have not heard anything.//Please advise.) Start: 01-22-2022 Refill Adrian OTOOLE [facility] Comment on above: Panic disorder with agoraphobia Start: 01-16-2022 ambulatory Suellen Borges RN NURS E RECONCILER Comment on above: Urinary Retention Start: 01-15-2022 End: 01-15-2022 Lab Drop off JHONATAN APPIAH [facility] Start: 01-15-2022 End: 01-15-2022 Patient encounter procedure JHONATAN APPIAH [facility] Start: 01-14-2022 End: 01-14-2022 Emergency department patient visit Chandan Adhikari [facility] Start: 01-14-2022 End: 01-14-2022 Lab Drop off Tomas GARCIA [facility] Start: 2022 End: 2022 Patient encounter procedure Frantz Santana APRN.SODA JERKER Work Phone: Urology Comment on above: Urinary retention (P rimary Dx); Urinary tract infection without hematuria, site unspecified; Chronic constipation Start: 12-27-2021 End: 12-27-2021 Patient encounter procedure JHONATAN APPIAH [facility] Start: 12-26-2021 End: 12-26-2021 Patient encounter procedure Rosa LOPES [facility] Start: 12-20-2021 End: 12-20-2021 Emergency department patient visit Didier Hooks [facility] Start: 12-16-2021 End: 12-17-2021 Observation Zeyad Sharma [facility] Start: 12-15-2021 End: 12-15-2021 Emergency department patient visit Carlos Coates [facility] Start: 12-14-2021 End: 12-14-2021 Emergency department patient visit Johny Willson [facility] Start: 12-12-2021 Telephone encounter Frantz trent BAND EDGER.SODA JERKER Work Phone: Urology Comment on above: Patient Update Start: 12-09-2021 End: 12-09-2021 Emergency department patient visit Johny Dueñas [facility] Start: 12-07-2021 End: 12-07-2021 Patient encounter procedure Frantz Santana BAND EDGER.SODA JERKER Work Phone: Urology Comment on above: Urinary tract infect ion without hematuria, site unspecified (Primary Dx); Retention of urine; Pelvic floor dysfunction Start: 12-04-2021 End: 12-04-2021 Patient encounter procedure Frantz Santana BAND EDGER.SODA JERKER Work Phone: Urology Comment on above: Urinary tract infect ion without hematuria, site unspecified (Primary Dx); Feeling of incomplete bladder emptying; Pelvic pain Start: 12-03-2021 End: 12-03-[address] TIMO PRUETT . Facility: Start: 11-30-2021 End: 11-30-2021 Lab Drop off Tatum Liang [facility] Start: 11-30-2021 End: 11-30-2021 Patient encounter procedure Tatum X Orzech [facility] Start: 11-23-2021 End: 11-23-2021 Lab Drop off Rosalie Bush [facility] Start: 11-23-2021 End: 11-23-2021 Patient encounter procedure Rosalie Bush [facility] Start: 11-21-2021 End: 11-21-2021 Emergency department patient visit Carlos Coates [facility] Start: 11-17-2021 End: 11-17-2021 Emergency department patient visit Chandan Onofre [facility] Start: 11-16-2021 End: 11-16-2021 Emergency department patient visit Chandan Adhikari [facility] Start: 11-08-2021 End: 11-08-2021 Emergency department patient visit Didier Hooks [facility] Start: 11-07-2021 End: 11-07-2021 Patient encounter procedure Rosalie Bush [facility] Start: 11-06-2021 End: 11-06-2021 Emergency department patient visit Johny Willson [facility] Start: 11-01-2021 End: 11-01-2021 Emergency department patient visit Carlos Coates [facility] Start: 10-30-2021 End: 10-30-2021 ambulatory TOMAS Guerrier [facility] Start: 10-30-2021 End: 10-30-2021 Office outpatient visit 15 minutes Alison Ferreira MD Work Phone: [facility] Comment on above: Bipolar 1 disorder, manic, mild (HCC) (Primary Dx); Post traumatic stress disorder (PTSD); Panic disorder with agoraphobia; Insomnia due to mental disorder Start: 10-27-2021 End: 10-27-2021 Emergency department patient visit Johny Willson [facility] Start: 10-23-2021 End: 10-23-2021 Emergency department patient visit Chandan Adhikari [facility] Start: 10-22-2021 End: 10-23-2021 Emergency department patient visit Mati Taylor [facility] Start: 10-21-2021 ambulatory Anju Mina RN [facility] RECONCIL[facility] Comment on above: UTI Start: 10-20-2021 End: 10-20-2021 Emergency department patient visit Chandan Adhikari [facility] Start: 10-14-2021 End: 10-14-2021 Emergency department patient visit Johny Dueñas [facility] Start: 10-12-2021 End: 10-12-2021 Emergency department patient visit Carlos Coates [facility] Start: 10-12-2021 End: 10-12-2021 Well adult monitoring check done Carlos Coates [facility] Start: 10-08-2021 End: 10-08-2021 Lab Drop off Dulce Anthony [facility] Start: 10-04-2021 End: 10-04-2021 Emergency department patient visit DO Mayorga Jose Work Phone: [facility] Start: 10-03-2021 End: 10-04-2021 Emergency department patient visit Mati Taylor [facility] Start: 10-02-2021 ambulatory Kyler robert MD Work Phone: Urology Start: 10-01-2021 End: 10-01-2021 Emergency department patient visit Chandan Adhikari [facility] Start: 10-01-2021 End: 10-01-2021 Well adult monitoring check done Chandan Adhikari [facility] Start: 09-30-2021 End: 09-30-2021 Emergency department patient visit Didier Hooks [facility] Start: 09-26-2021 End: 09-26-2021 Lab Drop off Rosalie Bush [facility] Start: 09-26-2021 End: 09-26-2021 Patient encounter procedure Rosalie Bush [facility] [place] Start: 09-17-2021 End: 09-17-2021 Patient encounter procedure Rosalie R Jlrandalricardo [facility] Start: 09-17-2021 End: 09-17-2021 Emergency department patient visit Chandan Adhikari [facility] Start: 09-13-2021 ambulatory Irma Gregg RN NURSE RECONCILER Comment on above: Urinary Retention Start: 09-13-2021 End: 09-13-2021 Lab Drop off JHONATAN APPIAH [facility] Start: 09-13-2021 End: 09-13-2021 Patient encounter procedure JHONATAN APPIAH [facility] Start: 09-08-2021 End: 09-08-2021 Emergency department patient visit DO Tomas Garcia Work Phone: [facility] Start: 09-08-2021 End: 09-08-2021 Emergency department patient visit Chandan Adhikari [facility] Start: 09-08-2021 End: 09-08-2021 Emergency department patient visit Santiago Harrington [facility] Start: 09-07-2021 End: 09-07-2021 Emergency department patient visit Santiago Harrington [facility] Start: 09-07-2021 End: 09-07-2021 Emergency department patient visit Carlos Coates [facility] Start: 09-06-2021 End: 09-06-2021 Lab Drop off Tomas GARCIA [facility] Start: 09-06-2021 End: 09-06-2021 Patient encounter procedure Tomas GARCIA [facility] [place] Start: 08-28-2021 End: 08-28-2021 Lab Drop off Rosa LOPES [facility] Start: 08-15-2021 End: 08-15-2021 Patient encounter procedure Rosa LOPES [facility] Start: 08-13-2021 Jaya Willis MA [facility] Comment on above: Panic disorder with agoraphobia Start: 08-07-2021 End: 08-08-2021 Emergency department patient visit DO Tomas Jose Work Phone: [facility] Start: 07-27-2021 End: 07-27-2021 Emergency department patient visit DO Tomas Jose Work Phone: [facility] Start: 07-22-2021 End: 07-22-2021 Emergency department patient visit DO Tomas Jose Work Phone: [facility] Start: 07-19-2021 End: 07-19-2021 Emergency department patient visit DO Tomas Jose Work Phone: [facility] Start: 07-17-2021 End: 07-17-2021 ambulatory ALISON FERREIRA [facility] Start: 07-17-2021 End: 07-17-2021 Phys/qhp telephone evaluation 11-20 min Alison Ferreira MD Work Phone: [facility] Comment on above: Post traumatic stres s disorder (PTSD) (Primary Dx); Bipolar 1 disorder, manic, mild (HCC); Panic disorder with agoraphobia; Insomnia due to mental disorder Start: 07-16-2021 Refill Jessica Willis MA [facility] Comment on above: Panic disorder with agoraphobia Start: 06-15-2021 Refill Taniya Vargas MA [facility] Comment on above: Panic disorder with agoraphobia Start: 04-16-2021 End: 04-16-2021 Phys/qhp telephone evaluation 11-20 min Alison Ferreira MD Work Phone: [facility] Comment on above: Bipolar 1 disorder, manic, mild (HCC) (Primary Dx); Post traumatic stress disorder (PTSD); Panic disorder with agoraphobia; Insomnia due to mental disorder Start: 04-06-2021 Refill Taniya Vargas MA [facility] Start: 12-29-2020 End: 12-29-2020 Office outpatient visit 25 minutes Alison Ferreira MD Work Phone: [facility] Comment on above: Bipolar 1 disorder, manic, mild (HCC) (Primary Dx); Post traumatic stress disorder (PTSD); Panic disorder with agoraphobia; Insomnia due to mental disorder Start: 09-25-2020 End: 09-25-2020 Refill Stormy Harris LPN [facility] Comment on above: Panic Disorder with Agoraphobia Start: 09-19-2020 End: 09-19-2020 Phys/qhp telephone evaluation 11-20 min Alison Ferreira MD Work Phone: [facility] Comment on above: Bipolar 1 disorder, manic, mild (HCC) (Primary Dx); Post traumatic stress disorder (PTSD); Panic Disorder with Agoraphobia; Insomnia due to mental disorder Start: 05-01-2020 End: 05-01-2020 Phys/qhp telephone evaluation 11-20 min Alison Ferreira Work Phone: [facility] Comment on above: Bipolar 1 disorder, manic, mild (HCC) (Primary Dx); Post traumatic stress disorder (PTSD); Panic Disorder with Agoraphobia; Insomnia due to mental disorder Start: 09-27-2017 End: 09-29-2017 Evaluation and management of inpatient JAMES R JESIKA Facility:[facility] Procedures Date Procedure Procedure Detail Performing Clinician Start: 03-29-2024 Radex wrist complete minimum 3 views Anne Marie Pocos DO Work Phone: Start: 02-23-2024 Radex wrist complete minimum 3 views Anne Marie Pocos DO Work Phone: Start: 02-02-2024 Radex wrist complete minimum 3 views Anne Marie Pocos DO Work Phone: Start: 01-12-2024 [facility] [place] [place] CBC W/ AUTO DIFF D avid A Pocos DO Work Phone: Start: 09-06-2023 CT of head without contrast BAND EDGER Bebe Saffle Work Phone: Start: 09-06-2023 Plain chest X-ray BAND EDGER Bebe Saffle Work Phone: Start: 09-06-2023 SARS-CoV-2, Influenz a & RSV (PCR) BAND EDGER Bebe Saffle Work Phone: Start: 08-22-2023 Urine culture BAND EDGER Cour tney Saffle Work Phone: Start: 08-22-2023 CT of head without contrast BAND EDGER Bebe Saffle Work Phone: Start: 07-05-2023 CT of head without contrast BAND EDGER Bebe Saffle Work Phone: Start: 07-05-2023 Plain chest X-ray BAND EDGER Bebe Saffle Work Phone: Start: 07-05-2023 Urine culture BAND EDGER Cour tnmagda Saffle Work Phone: Start: 02-03-2023 Basic metabolic pane l calcium total Monse Faggionato BAND EDGER - COMMERCIAL INTELLIGENCE MANAGER Work Phone: Start: 05-27-2022 CT of head without contrast DO Tomas Jose Work Phone: Start: 12-04-2021 Culture bacterial quanttative colony count urine Frantz D [place] BAND EDGER.SODA JERKER Work Phone: Start: 10-02-2021 Urnls dip stick/tabl et rgnt auto w/o microscopy Bulk Order Provider Start: 09-08-2021 Urine culture DO Niranjan pineda Jose Work Phone: Start: 08-07-2021 Computed tomography of abdomen and pelvis with contrast DO Tomas Garcia Work Phone: Start: 08-07-2021 Urine culture DO Niranjan pineda Jose Work Phone: Start: 07-27-2021 Urine culture DO Niranjan Garcia Work Phone: Start: 07-22-2021 Urine culture DO Niranjan pineda Jose Work Phone: Start: 07-19-2021 Urine culture DO Niranjan pineda Jose Work Phone: Start: 07-06-2019 Urodynamic studies Vesta LOPES Start: 07-05-2019 cysto w/ UD Rosa Barker Start: 10-04-2016 left femur ORIF w fe moral cortical strut graft Leesalvatore LOPES Start: 08-30-2016 lt bipolar hemiarthroplasty Leesalvatore LOPES Appendectomy Rosa LOPES Cardiovascular stres s [...] cation delivery system pump (physical object) Rosa MIRIDEJAN right leg surgery 3 Rosa ALEMAN Comment [...] vaccination Tetanus: Every 1 0yrs [facility] Start: 06-19-2029 Tetanus vaccination Tetanus: Every 1 0yrs [facility] Start: 08-09-2024 ambulatory Ambulatory Facility:[facility] Start: 04-05-2024 End: 04-05-2024 Patient encounter procedure 04/05/2024 3:45 PM EST Office Visit [facility] [address] [place] [id number] Jose Stroud DO [address] [place] [address] [facility] Start: 03-31-2024 Bacteria identified in Urine by Culture Urine Culture [facility] Start: 03-15-2024 End: 03-15-2024 Patient encounter procedure 03/15/2024 10:30 AM EDT Office Visit [facility] [address] [place] [address] Jose Stroud DO [address] [place] [address] [facility] Start: 02-23-2024 End: 02-23-2024 Patient encounter procedure 02/23/2024 10:30 AM EDT Office Visit [facility] [address] [place] [phone] Jose Stroud, DO [address] [place] [address] [facility] Start: 02-02-2024 End: 02-02-2024 Patient encounter procedure 02/02/2024 1:15 PM EDT Office Visit [facility] [address] [place] [phone] Jose Stroud, DO [address] [facility] [place] [address] [facility] Start: 02-02-2024 End: 02-02-2024 Patient encounter procedure 02/02/2024 9:45 AM EDT Office Visit [facility] [address] [facility] [place] [id number] Jose Stroud, DO [address] [facility] [place] [address] [facility] Start: 01-31-2024 BP CONTROLLED (<130/80) BP CONTROLLE D (<130/80) [facility] Start: 01-25-2024 Influenza vaccination Influenza Vacc ine (#1) [facility] Start: 01-22-2024 End: 01-22-2024 Patient encounter procedure 01/22/2024 11:00 AM EDT Procedure Visit [facility] Jose Stroud, DO [address] [facility] [place] [address] [facility] Start: 01-12-2024 End: 01-11-2025 CBC W Auto Differential panel - Blood CBC and differential Lab Routine Other closed intra-articular fracture of distal end of left radius, initial encounter Preoperative testing Expected: 01/12/2024 (Approximate), Expires: 01/11/2025 [facility] Work Phone: Comment on above: Expected: 01/12/2024 (Approximate), Expires: 01/11/2025 Start: 01-12-2024 End: 01-11-2025 Comprehensive metabolic 2000 panel - Serum or Plasma Comprehensive metabolic panel Lab Routine Other closed intra-articular fracture of distal end of left radius, initial encounter Preoperative testing Expected: 01/12/2024 (Approximate), Expires: 01/11/2025 [facility] Comment on above: Expected: 01/12/2024 (Approximate), Expires: 01/11/2025 Start: 01-12-2024 End: 01-11-2025 XR Chest 2 Views XR chest 2 views Imaging Routine Other closed intra-articular fracture of distal end of left radius, initial encounter Preoperative testing Expected: 01/12/2024 (Approximate), Expires: 01/11/2025 [facility] Comment on above: Expected: 01/12/2024 (Approximate), Expires: 01/11/2025 Start: 09-06-2023 Referral to [facility] Start: 09-02-2023 [facility] Start: 08-28-2023 Administration of prophylactic treatment [facility] Start: 08-27-2023 Referral to [facility] Start: 08-27-2023 Hospital admission [facility] Start: 08-22-2023 Bacteria identified in Urine by Culture [facility] Start: 07-05-2023 Bacteria identified in Urine by Culture [facility] Start: 02-07-2023 BP CONTROLLED (<130/80) BP CONTROLLE D (<130/80) [facility] Start: 01-24-2023 Influenza vaccination INFLUENZA (#1) [facility] Start: 2023 BP CONTROLLED (<130/80) BP CONTROLLE D (<130/80) [facility] Start: 12-24-2022 Influenza vaccination Flu vaccine (# 1) [facility] Start: 12-07-2022 BP CONTROLLED (<130/80) BP CONTROLLE D (<130/80) [facility] Start: 06-11-2022 [facility] Start: 06-10-2022 End: 06-10-2022 Telemedicine consultation with patient 06/10/2022 Telemedicine Telephone Psychiatry Gehlot, Upender, MD Kalpana MCGARRY [address] [place] [id number] [facility] Start: 06-09-2022 Urine culture Urine Culture [facility] Start: 06-03-2022 Referral to bumper and painter [facility] Start: 05-27-2022 Administration of prophylactic treatment [facility] Start: 05-26-2022 ADVANCE DIRECTIVE DISCUSSION ADVANCE DIRECTIVE DISCUSSION [facility] Start: 05-25-2022 Referral to Mail List Processor [facility] Start: 05-25-2022 Hospital admission [facility] Start: 03-05-2022 End: 03-05-2022 Patient encounter procedure 03/05/2022 Office Visit Alison Fernandes MD [address] [facility] [address] [place] [phone] [facility] Start: 02-01-2022 End: 02-01-2022 Patient encounter procedure 02/01/2022 Office Visit Alison Fernandes MD [address] [facility] [address] [place] [id number] [facility] Start: 01-24-2022 Influenza vaccination [facility] Start: 10-15-2021 End: 10-15-2021 Patient encounter procedure 10/15/2021 Office Visit Alison Fernandes MD [address] [facility] [address] [place] [phone] [facility] Start: 09-03-2021 COVID-19 VACCINE (4 - Booster for Moderna series) COVID-19 VACCINE (4 - Booster for Moderna series) [facility] Start: 07-20-2021 End: 07-20-2021 Patient encounter procedure 07/20/2021 Office Visit Alison Fernandes MD [address] [facility] [address] [place] [phone] [facility] Start: 07-17-2021 End: 07-17-2021 Patient encounter procedure 07/17/2021 Office Visit Psychiatry Alison Ferreira MD [address] [facility] [place] [address] [place] [address] [facility] Start: 06-30-2021 COVID-19 VACCINE (4 - Booster for Moderna series) COVID-19 VACCINE (4 - Booster for Moderna series) [facility] Start: 06-30-2021 COVID-19 VACCINE (4 - Moderna series) COVID-19 VACCINE (4 - Moderna series) [facility] Start: 05-26-2021 ADVANCE DIRECTIVE DISCUSSION ADVANCE DIRECTIVE DISCUSSION [facility] Start: 05-26-2021 COVID-19 VACCINE (2 - Pfizer series) COVID-19 VACCINE (2 - Pfizer series) [facility] Start: 04-13-2021 End: 04-13-2021 Patient encounter procedure 04/13/2021 Office Visit Psychiatry Alison Ferreira MD [address] [facility] [place] [address] [place] [address] [facility] Start: 03-17-2021 COVID-19 Vaccine (3 - Booster for Moderna series) COVID-19 Vaccine (3 - Booster for Moderna series) [facility] Start: 02-15-2021 COVID-19 Vaccine (3 - Booster for Moderna series) COVID-19 Vaccine (3 - Booster for Moderna series) [facility] Start: 01-24-2021 Influenza vaccination Sequenti al Influenza Vaccine (#1) [facility] Start: 11-10-2020 COVID-19 Vaccine (3 - Booster for Moderna series) COVID-19 Vaccine (3 - Booster for Moderna series) [facility] Start: 08-29-2015 LIPID SCREEN LIPID SCREEN [facility] Start: 09-03-2013 DIABETES SCREEN DIABETES SCREEN [facility] Start: 01-07-2013 BONE DENSITY BONE DENSITY [facility] Start: 01-07-2013 Fall risk assessment Falls Risk Asse ssment [facility] Start: 01-07-2013 PNEUMOCOCCAL: 65+ (1 - PCV) PNEUMOCOCCAL: 65+ (1 - PCV) [facility] Start: 01-07-2013 PNEUMOVAX AGE 65 AND OVER WITH 5YR LOOKBACK (#1) PNEUMOVAX AGE 65 AND OVER WITH 5YR LOOKBACK (#1) [facility] Start: 01-07-1998 Screening for malign ant neoplasm of colon [facility] Start: 01-07-1998 SHINGRIX VACCINE (1 of 2) SHINGRIX VACCINE (1 of 2) [facility] Start: 01-07-1993 COLOGUARD (FIT-DNA) COLOGUARD (FIT-D NA) [facility] Start: 01-07-1993 Colonoscopy COLONOSCOPY [facility] Start: 01-07-1993 COLORECTAL CANCER SCREENING COLORECTAL CANCER SCREENING [facility] Start: 01-07-[address] COLONOGRAPHY [facility] Start: 01-07-1993 FECAL OCCULT BLOOD FECAL OCCULT BLOO D [facility] Start: 01-07-1993 SIGMOIDOSCOPY SIGMOIDOSCOPY [facility] Start: 1988 Mammography MAMMOGRAM [facility] Start: 1988 Screening for malign ant neoplasm of breast Mammogram [facility] Start: 01-07-1967 DTaP/Tdap/Td vaccine (1 - Tdap) DTaP/Tdap/Td vaccine (1 - Tdap) [facility] Start: 01-07-1967 Urine microalbumin profile DTAP,TDAP,TD (1 - Tdap) [facility] Start: 01-07-1966 ANNUAL PCP TEAM TOBACCO HANGER JADYN DISEASE VISIT ANNUAL PCP TEAM CHRONIC DISEASE VISIT [facility] Start: 01-07-1966 BP CONTROLLED (<130/80) BP CONTROLLE D (<130/80) [facility] Start: 01-07-1966 Hepatitis C antibody , confirmatory test Hepatitis C Screening [facility] Start: 01-07-1966 Hepatitis C screening Hepatitis C [facility] [place] Start: 01-07-1966 HEPATITIS C SCREENING HEPATITIS C SC [facility] Start: 1964 COVID-19 Vaccine (1) COVID-19 Vaccin e (1) [facility] Start: 1960 Adolescent depressio n screening assessment Depression Screening (PHQ9) [facility] Start: 1960 COVID-19 Vaccine (1) COVID-19 Vaccin e (1) [facility] Start: 01-07-1953 COVID-19 VACCINE (1) COVID-19 VACCIN E (1) [facility] Start: 01-07-1951 History and physical examination, annual for health maintenance Wellness Visit [facility] Start: 1948 COVID-19 Vaccine (#1) COVID-19 Vacci ne (#1) [facility] [employer] Start: 1948 Fall risk assessment Falls Risk Asse ssment [facility] Start: 1948 Medicare Annual Well ness (AWV) Medicare Annual Wellness (AWV) [facility] Start: 1948 Screening for malign ant neoplasm of colon [facility] Start: 1948 Screening for osteoporosis Dexa Scan [facility] Start: 1948 Screening mammography Mammogram [facility] End: 02-03-2023 Basic metabolic 2000 panel - Serum or [facility] Work Phone: Comment on above: Once for 1 Occurrenc es starting 02/03/2023 until 02/03/2023 Patient Education [facility] Work Phone: Patient referral [facility] Work Phone: Urine culture [facility] XR Wrist - left 3 Views XR wrist 3+ views left Imaging Routine Other closed intra-articular fracture of distal end of left radius with routine healing, subsequent encounter 02/23/2024 8:00 AM EDT [employer] Work Phone: XR Wrist - left 3 Views XR wrist 3+ views left Imaging Routine Other closed intra-articular fracture of distal end of left radius with routine healing, subsequent encounter 03/29/2024 11:44 AM EST [facility] Work Phone: XR Wrist - left 3 Views XR wrist 3+ views left Imaging Routine Other closed intra-articular fracture of distal end of left radius with routine healing, subsequent encounter 02/02/2024 8:15 AM EDT [employer] Work Phone: [facility] Immunizations Immunization Date Immunization Notes Care Provider Antonio bello 03-06-2023 influenza virus vaccine, unspecified formulation Jose Pocos DO Work Phone: [facility] 05-24-2022 tetanus toxoid, redu rita diphtheria toxoid, and acellular pertussis vaccine, adsorbed Santiago Len [facility] 03-20-2022 influenza virus vaccine, unspecified formulation Tomas GARCIA [facility] 05-05-2021 SARS-CoV-2 (COVID-19 ) mRNA BNT-162b2 vax Tomas GARCIA [facility] 03-20-2021 influenza, injectabl e, quadrivalent, preservative free Rosa LOPES [facility] 02-23-2021 influenza virus vaccine, unspecified formulation Lee wiMANAM [facility] 09-15-2020 SARS-CoV-2 (COVID-19 ) mRNA-1273 vaccine Dulcenusrat Anthony [facility] 08-18-2020 SARS-CoV-2 (COVID-19 ) mRNA-1273 vaccine Dulcenusrat Anthony [facility] 02-25-2020 influenza virus vaccine, unspecified formulation Dulcenusrat Anthony [facility] 06-19-2019 tetanus toxoid, redu rita diphtheria toxoid, and acellular pertussis vaccine, adsorbed; Translations: [Adacel (Tdap)] Leesalvatore LOPES [facility] 02-25-2019 influenza virus vaccine, unspecified formulation Dulce Anthony [facility] 01-24-2019 influenza virus vaccine, unspecified formulation Lee wiMANAM [facility] 06-25-2018 zoster vaccine recombinant Dulce [facility] 01-16-2018 influenza virus vaccine, unspecified formulation Dulce Anthony [facility] 09-10-2017 zoster vaccine recombinant Dulce Anthony [facility] 07-25-2017 pneumococcal polysaccharide vaccine, 23 valent Leesalvatore CHERYAM [facility] 01-18-2017 influenza virus vaccine, unspecified formulation Dulce Anthony [facility] 04-01-2016 pneumococcal conjuga te vaccine, 13 valent Lee SALAM [facility] 02-04-2016 influenza virus vaccine, unspecified formulation Dulce Anthony [facility] 02-17-2015 influenza virus vaccine, unspecified formulation Dulce Anthony [facility] 06-29-2014 zoster vaccine, live Dulce Anthony [facility] 03-22-2013 pneumococcal polysaccharide vaccine, 23 valent Lee SALAM [facility] 01-27-2010 tetanus toxoid, redu rita diphtheria toxoid, and acellular pertussis vaccine, adsorbed Lee SALAM [facility] NEGATED: Highlighted row has not occurred!03-04-2022 influenza virus vaccine, unspecified formulation Voovio aka [employer] [facility] NEGATED: Highlighted row has not occurred!03-04-2022 SARS-CoV-2 mRNA (tozinameran 5y-11y) vaccine Voovio aka [employer] [facility] Payers Date Payer Category Payer Medicare (Managed Care) [facility] MEDIC[facility] [id number] 2021 Medicare UHC MEDICARE UHC DUAL COMPLETE HMO SNP [id number] 2021-Present [phone] [address] [place] [address] Medicare [id number]. [id number] 2019 Medicaid [id number] 1.2.840.182608.1.13.385.2. [id number] 2019 Medicaid [id number]. 1.13.385.2. [id number] 2017 Medicare [id number] 2015 Unknown ANTHEM BCBS OUT OF STATE MIS [id number] 2015-Present [id number] 1.2.840.959793.1.13.385.2. 7.3.154065.315 2012 Unknown AARP AARP COMMER CIAL [id number] 2012-Present [id number] 1.2.840.071457.1.13.385.2. 7.3.985635.315 2003 Medicare MEDICARE MEDICAR E PART A & B [id number] 2003-Present PA [id number] 1.2.840.491337.1.13.385.2. 7.3.772936.315 2003 Medicare [id number] 1.2.840.214610.1.13.385.2. 7.3.119129.315 2003 Medicare [id number]. 1.13.385.2. 7.3.784111.315 2003 Medicare [id number] 1959 Medicaid [id number] 1959 Self-pay [id number] 1948 Unknown [id number] 2.16.840.1.745482.3.579.2. 903 1948 Unknown [id number] 2.16.840.1.897226.3.579.2. 903 1948 Unknown [id number] 2.16.840.1.981641.3.579.2. 903 1948 Unknown [id number] 2.16.840.1.919140.3.579.2. 903 1948 Unknown [id number] 2.16.840.1.031647.3.579.2. 593 1948 Unknown [id number] 2.16.840.1.918703.3.579.2. 593 1948 Unknown [id number] 2.16.840.1.757446.3.579.2. 593 1948 Unknown [id number] 2.16.840.1.090195.3.579.2. 593 1948 Unknown [id number] 2.16.840.1.240735.3.579.2. 593 1948 Unknown [id number] 2.16.840.1.299262.3.579.2. 593 1948 Unknown [id number] 2.16.840.1.493681.3.579.2. 593 1948 Unknown [id number] 2.16.840.1.834488.3.579.2. 727 1948 Unknown [id number] 2.16.840.1.727869.3.579.2. 727 1948 Unknown [id number] 2.16.840.1.067497.3.579.2. 727 1948 Unknown [id number] 2.16.840.1.633377.3.579.2. 727 1948 Unknown [id number] 2.16.840.1.075538.3.579.2. 727 1948 Unknown [id number] 2.16.840.1.825386.3.579.2. 72 1948 Unknown [id number] 2.16.840.1.742512.3.579.2. 727 1948 Unknown [id number] 2.16.840.1.209461.3.579.2. 125 1948 Unknown [id number] 2.16.840.1.320441.3.579.2. 125 1948 Unknown [id number] 2.16.840.1.227318.3.579.2. 1258 1948 Unknown [id number] 2.16.840.1.613897.3.579.2. 1258 1948 Unknown [id number] 2.16.840.1.400686.3.579.2. 1258 1948 Unknown [id number] 2.16.840.1.189723.3.579.2. 1258 1948 Unknown [id number] 2.16.840.1.389161.3.579.2. 1258 1948 Unknown [id number] 2.16.840.1.406317.3.579.2. 1258 1948 Unknown [id number] 2.16.840.1.864206.3.579.2. 125 1948 Unknown [id number] 2.16.840.1.700473.3.579.2. 72 1948 Unknown [id number] 2.16.840.1.516716.3.579.2. 72 1948 Unknown [id number] 2.16.840.1.456113.3.579.2. 72 1948 Unknown [id number] 2.16.840.1.555506.3.579.2. 727 1948 Unknown [id number] 2.16.840.1.167862.3.579.2. 72 1948 Unknown [id number] 2.16.840.1.335364.3.579.2. 1948 Unknown [id number] 2.16.840.1.507549.3.579.2. 1948 Unknown [id number] 2.16.840.1.793828.3.579.2. 1948 Unknown [id number] 2.16.840.1.076832.3.579.2. 1948 Unknown [id number] 2.16.840.1.977429.3.579.2 1948 Unknown [id number] 2.16.840.1.446489.3.579.2 1948 Unknown [id number] 2.16.840.1.528727.3.579.2 1948 Unknown [id number] 2.16.840.1.498103.3.579.2 1948 Unknown [id number] 2.16.840.1.025197.3.579.2 1948 Unknown [id number] 2.16.840.1.753202.3.579.2 1948 Unknown [id number] 2.16.840.1.052926.3.579.2. 1948 Unknown [id number] 2.16.840.1.546570.3.579.2 1948 Unknown [id number] 2.16.840.1.922850.3.579.2. 1948 Unknown [id number] 2.16.840.1.361181.3.579.2 1948 Unknown [id number] 2.16.840.1.809498.3.579.2. 1948 Unknown [id number] 2..840.1.424943.3.579.2 1948 Unknown [id number] 2.16.840.1.676550.3.579.2. 1948 Unknown [id number] 2..840.1.538944.3.579.2 1948 Unknown [id number] 2..840.1.740245.3.579.2. 1948 Unknown [id number] ..840.1.057974.3.579. 1948 Unknown [id number] 2..840.1.360345.3.579.2 1948 Unknown [id number] ..840.1.245360.3.579.2 1948 Unknown [id number] ..840.1.257141.3.579.2 1948 Unknown [id number] 2..840.1.641966.3.579.2 1948 Unknown [id number] 2..840.1.655304.3.579.2 1948 Unknown [id number] 2..840.1.405763.3.579.2 1948 Unknown [id number] ..840.1.926966.3.579.2 1948 Unknown [id number] 2.16.840.1.354845.3.579.2 1948 Unknown [id number] 2.16.840.1.439714.3.579.2 1948 Unknown [id number] 2.16.840.1.263902.3.579.2. 727 1948 Unknown [id number] 2.16.840.1.084410.3.579.2. 1948 Unknown [id number] 2.16.840.1.135493.3.579.2. 72 1948 Unknown [id number] 2.16.840.1.472974.3.579.2. 1948 Unknown [id number] 2.16.840.1.655027.3.579.2. 1948 Unknown [id number] 2.16.840.1.282390.3.579.2. 1948 Unknown [id number] 2.16.840.1.409856.3.579.2 1948 Unknown [id number] 2.16.840.1.008102.3.579.2 1948 Unknown [id number] 2.16.840.1.081706.3.579.2. 1948 Unknown [id number] 2.16.840.1.959896.3.579.2 1948 Unknown [id number] 2.16.840.1.306111.3.579.2. 1948 Unknown [id number] 2.16.840.1.096799.3.579.2. 1948 Unknown [id number] 2.16.840.1.991875.3.579.2. 72 1948 Unknown [id number] 2.16.840.1.621600.3.579.2. 1948 Unknown [id number] 2.16.840.1.572483.3.579.2. 72 1948 Unknown [id number] 2.16.840.1.613627.3.579.2. 728 Unknown [id number] 2.16.840.1.841408.3.579.2. 727 Medicare [id number] Private Health Insurance [facility] Dual Compl [id number] Unknown Celeste BC/BS [id number] Unknown [facility] Health Claims [id number] Unknown [id number] 2.16.840.1.320585.3.579.2. 593 Unknown [id number] 2.16.840.1.437480.3.579.2. 531 Unknown [id number] 2.16.840.1.116441.3.579.2. 531 Unknown [id number] 2.16.840.1.867573.3.579.2. 531 Unknown [id number] 2.16.840.1.272204.3.579.2. 531 Unknown [id number] 2.16.840.1.105723.3.579.2. 531 Unknown [id number] 2.16.840.1.329873.3.579.2. 531 Unknown [id number] 2.16.840.1.931372.3.579.2. 531 Unknown [id number] 2.16.840.1.289607.3.579.2. 531 Social History Date Type Detail Facility Start: 05-01-2020 End: 07-06-2024 Tobacco smoking status ORIS Never smoker [facility] Comment on above: son smokes Start: 05-01-2020 End: 10-29-2022 Tobacco use and exposure Never used [facility] Start: 05-01-2020 End: 06-28-2022 Alcohol intake Ex-drinker (finding) [facility] Start: 1950 Sex Assigned At Not on file [facility] Start: 07-07-2021 End: 07-17-2021 Exposure to SARS-CoV-2 (event) Unable to assess [facility] Start: 09-03-2021 End: 02-07-2022 Exposure to SARS-CoV-2 (event) Not sure [facility] Tobacco smoking status Never [facility] Comment on above: son smokes Start: 02-07-2022 End: 02-02-2024 Sex Assigned At Female [facility] Start: 01-18-2020 End: 01-30-2023 Alcohol intake Current non-drinker of alcohol (finding) [facility] Start: 1950 Sex Assigned At Female F [facility] Tobacco [facility] Comment on above: denies denies Start: 05-01-2020 End: 02-02-2024 Cigarette pack-years [facility] Start: 07-05-2023 Tobacco smoking stat [facility] Tobacco smoking consumption unknown [facility] Tobacco smoking status No Smokin g Status Entered [facility] Start: 02-02-2024 End: 02-23-2024 Alcoholic beverage intake Lifetime non-drinker (finding) [facility] Goals Date Patient Goal Desired Activity /State Functional Status Date Assessment Result Facility 07-28-2024 Functional Status N/A [facility] 07-25-2024 Functional Status N/A [facility] 07-24-2024 Functional Status N/A [facility] 07-20-2024 Functional Status N/A [facility] 07-12-2024 Functional Status N/A [facility] 07-06-2024 Functional Status N/A [facility] 07-04-2024 Functional Status N/A [facility] 06-20-2024 Functional Status N/A [facility] 06-17-2024 Functional Status N/A [facility] 05-16-2024 Functional Status N/A [facility] 05-10-2024 Functional Status N/A [facility] 05-04-2024 Functional Status N/A [facility] 05-03-2024 Functional Status N/A [facility] 04-28-2024 Functional Status N/A [facility] 04-26-2024 Functional Status N/A [facility] 04-25-2024 Functional Status N/A [facility] 04-21-2024 Functional Status N/A [facility] 04-19-2024 Functional Status N/A [facility] 04-17-2024 Functional Status N/A [facility] 04-14-2024 Functional Status N/A [facility] 04-11-2024 Functional Status N/A [facility] 04-08-2024 Functional Status N/A [facility] 04-07-2024 Functional Status N/A [facility] 04-04-2024 Functional Status N/A [facility] 03-18-2024 Functional Status N/A [facility] 03-14-2024 Functional Status No [facility] 03-14-2024 Functional Status [facility] 03-12-2024 Functional Status N/A [facility] 03-11-2024 Functional Status N/A [facility] 03-09-2024 Functional Status N/A [facility] 02-24-2024 Functional Status N/A [facility] 02-23-2024 Functional Status N/A [facility] 02-06-2024 Functional Status N/A [facility] 01-28-2024 Functional Status N/A [facility] 01-10-2024 Functional Status N/A [facility] 01-02-2024 Functional Status N/A [facility] 09-07-2023 Functional Status No [facility] 09-07-2023 Functional Status [facility] 09-02-2023 Functional status Patient at [facility] Work Phone: 08-27-2023 Functional Status N/A [facility] 08-21-2023 Functional Status N/A [facility] 08-14-2023 Functional Status N/A [facility] 08-13-2023 Functional Status N/A [facility] 08-12-2023 Functional Status N/A [facility] 08-09-2023 Functional Status N/A [facility] 08-07-2023 Functional Status N/A [facility] 05-26-2023 Functional Status N/A [facility] 02-01-2023 Functional Status N/A [facility] [facility] Functional Status N/A [facility] 01-04-2023 Functional Status N/A [facility] 12-29-2022 Functional Status N/A [facility] 12-23-2022 Functional Status N/A [facility] 06-11-2022 Functional status [facility] Work Phone: 05-24-2022 Functional Status N/A [facility] 05-03-2022 Functional Status N/A [facility] 05-02-2022 Functional Status N/A [facility] 04-25-2022 Functional Status N/A [facility] 04-17-2022 Functional Status Yes [facility] 04-17-2022 Functional Status [facility] 03-04-2022 Functional Status N/A [facility] 02-17-2022 Functional Status N/A [facility] 02-15-2022 Functional Status N/A [facility] 02-13-2022 Functional Status N/A [facility] 02-03-2022 Functional Status No [facility] 02-01-2022 Functional Status N/A [facility] 01-31-2022 Functional Status N/A [facility] 01-30-2022 Functional Status N/A [facility] 01-15-2022 Functional Status N/A [facility] 01-14-2022 N/A [facility] 12-20-2021 Functional Status N/A [facility] 12-16-2021 Functional Status N/A [facility] 12-16-2021 Functional Status [facility] 12-15-2021 Functional Status N/A [facility] 12-14-2021 Functional Status N/A [facility] 12-09-2021 Functional Status N/A [facility] 11-30-2021 Functional Status N/A [facility] 11-23-2021 Functional Status N/A [facility] 11-21-2021 Functional Status N/A [facility] 11-17-2021 Functional Status N/A [facility] 11-16-2021 Functional Status N/A [facility] 11-08-2021 Functional Status N/A [facility] 11-07-2021 Functional Status N/A [facility] 11-06-2021 Functional Status N/A [facility] Mental Status Date Assessment Result Facility 09-02-2023 Cognitive function Cognitive Sta tus Patient at [facility] Work Phone: 06-11-2022 Cognitive function Cognitive Sta tus Patient at [facility] Work Phone: Clinical Notes 09-29-2020 to 07-28-2024 Note Date & Type Note Facility 07-28-2024 Evaluation + Plan note Extrac kenyatta from: Title:ED Note Author:Rodrigue John PA-C te:07/28/24 Right rib fracture (S22.31XA : Fracture of one rib, right side, initial encounter for closed fracture) Ordered: acetaminophen-oxycodone, 1 tab(s), Oral, q6hr for pain for 3 day(s), 12 tab(s), Refill(s) 0, [id number], 154, cm, 07/28/24 11:09:00 EST, Height/Length Dosing, 58.1, kg, 07/28/24 11:09:00 EST, Weight Dosing Future Appointments Appointment Date:08/09/2024 01:30:00 PM Scheduled Provider:Elidia Chavez MD Location:[facility] [place] [facility] Appointment Type:[facility] New Patient [facility] 03-05-2025 Hospital Discharge instructions Patient Education 07/28/2024 11:57:48 [...] risk of damage to the area. Take sufb-ale-wdaojje and prescription medicines only as told by [...] provider. Document Revised: 09/01/2020 Document Reviewed: 09/01/2020 Elsevier Patient Education 2023 [employer]. Follow Up Care 07/28/2024 10:57:29 With:AZUL GORMAN Address: [place] [address] Business (1) When:07/31/2024 11:39:21 Comments:Call Dr for diagnosis based follow up [facility] [phone] NoteED Patient Education Note Orthopedics Rib Fracture [...] of damage to the area. ??? Take umcs-yxr-gepqghy and prescription medicines only as told by [...] provider. Document Revised: 09/01/2020 Document Reviewed: 09/01/2020 Else[employer] Patient Education ? 2023 [employer].[facility] 07-25-2024 Evaluation + Plan noteExtracted from: Title:ED Note Author:Didier Hooks M.D. te:07/25/24 1. Fracture of rib of right side (S22.31XA: Fracture of one rib, right side, initial encounter for closed fracture) Orders: morphine, 4 mg = 1 mL, Injection, IntraMuscular, Once, Stop date 07/25/24 10:07:00 EST, STAT, Start date 07/25/24 10:07:00 EST, 07/25/24 10:07:00 EST Bladder Scan UA with Cult Rflx Future Appointments Appointment Date:08/09/2024 01:30:00 PM Scheduled Provider:Scott RAMOS, Elidia Pringle Location:[facility] Appointment Type:BAD New Patient [facility] [id number] Hospital Discharge instructions Patient Education 07/25/2024 11:40:33 [...] risk of damage to the area. Take tsiv-vfs-yblmbsj and prescription medicines only as told by [...] provider. Document Revised: 09/01/2020 Document Reviewed: 09/01/2020 [employer] Patient Education 2023 [employer]. Follow Up Care 07/25/2024 09:27:48 With:AZUL GORMAN Address: [address] [place] [address] [place] [address] Business (1) When:07/28/2024 11:33:19 Comments:Continue Percocet that was prescribed to you yesterday. Make sure to follow-up with your primary doctor as discussed. Continue the incentive spirometry every 2 hours as instructed. Return to the emergency room if your pain gets worse, shortness of breath, fever or any new symptoms. [facility] 03-02-2025 NoteED Patient Education Note Orthopedics Rib [...] of damage to the area. ??? Take kfwa-uzx-uiuyzys and prescription medicines only as told by [...] provider. Document Revised: 09/01/2020 Document Reviewed: 09/01/2020 [employer] Patient Education ? 2023 [employer].[facility] 07-24-2024 Hospital Discharge instructions Patient Education 07/24/2024 [...] risk of damage to the area. Take idkw-exr-ndgtmjp and prescription medicines only as told by [...] provider. Document Revised: 09/01/2020 Document Reviewed: 09/01/2020 [employer] Patient Education 2023 [employer]. Follow Up Care 07/24/2024 08:43:38 With:AZUL GORMAN Address: [address] [place] [address] [place] [phone] Business (1) When:07/27/2024 09:41:37 [facility] 03-01-2025 NoteED Patient Education Note Orthopedics Rib [...] of damage to the area. ??? Take npai-vgm-tmljheh and prescription medicines only as told by [...] provider. Document Revised: 09/01/2020 Document Reviewed: 09/01/2020 [employer] Patient Education ? 2023 [employer].[facility] 07-20-2024 Evaluation + Plan noteExtracted from: Title:ED Note Author:Johny Willson DO Date: Acute upper abdominal pain ( R10.10: [...] Date:08/09/2024 01:30:00 PM Scheduled Provider:Elidia Chavez MD Location:[facility] – [place] Dig[facility] Appointment Type:BADH New Patient [facility] 02-25-2025 Hospital Discharge instructions Patient Education 07/20/2024 [...] Follow these instructions at home: Medicines Take moqx-fiw-zeywtrh and prescription medicines only as told by [...] provider. Document Revised: 02/26/2023 Document Reviewed: 02/26/2023 [employer] Patient Education 2023 [employer]. Follow Up Care 07/20/2024 04:46:17 With:AZUL GORMAN Address: [place] [address] Business (1) When:07/23/2024 07:35:12 [facility] 02-25-2025 NoteED Patient Education Note Gastroenterology Abdominal [...] these instructions at home: Medicines ??? Take type-rbk-bpojbum and prescription medicines only as told by [...] provider. Document Revised: 02/26/2023 Document Reviewed: 02/26/2023 [employer] Patient Education ? 2023 [employer].[facility] 07-12-2024 Hospital Discharge instructions Patient Education 07/12/2024 [...] Follow these instructions at home: Medicines Take nmfc-tam-ovsgzmz and prescription medicines only as told by [...] provider. Document Revised: 12/22/2020 Document Reviewed: 12/22/2020 [employer] Patient Education 2023 [employer]. Follow Up Care 07/12/2024 12:43:36 With:Albino TORRES Address: [address] [place] [address]- Business (1) When:07/15/2024 13:33:18 With:AZUL GORMAN Address: [facility] [place] [address] Business (1) When:07/15/2024 13:33:12 Comments:Call Dr for diagnosis based follow up [facility] 02-17-2025 NoteED Patient Education Note Urology Dysuria [...] these instructions at home: Medicines ??? Take nerq-jfq-fotsolx and prescription medicines only as told by [...] provider. Document Revised: 12/22/2020 Document Reviewed: 12/22/2020 [employer] Patient Education ? 2023 [employer].[facility] 07-06-2024 Hospital Discharge instructions Patient Education 07/06/2024 [...] Treatment for this condition includes: Antibiotic medicine. Buub-ytk-qisbhjv medicines to treat discomfort. Drinking enough water [...] Follow these instructions at home: Medicines Take iegz-ztj-kjxrhwn and prescription medicines only as told by [...] provider. Document Revised: 12/17/2020 Document Reviewed: 12/22/2020 [employer] Patient Education 2023 [employer]. 07/06/2024 19:13:26 Neurogenic Bladder Neurogenic Bladder Neurogenic [...] your health care provider. General instructions Take cnhh-aew-qqfthbc and prescription medicines only as told by [...] provider. Document Revised: 01/25/2021 Document Reviewed: 01/25/2021 [employer] Patient Education 2023 [employer]. Follow Up Care 06/22/2024 16:16:13 With:Luz Elena Gunn PA-C, URL Address: When: Unknown Comments:F/U in 3 months w/ [facility] 02-11-2025 NotePatient Education Obstetrics and Gynecology Urinary [...] this condition includes: ??? Antibiotic medicine. ??? Wrmv-xgs-jthqaoj medicines to treat discomfort. ??? Drinking enough [...] these instructions at home: Medicines ??? Take fqgw-scd-npatgaj and prescription medicines only as told by [...] Make sure you di (more content not included)...[facility]02-09-2025 Evaluation + Plan noteExtracted from: Title:ED Note [...] 01:30:00 PM Scheduled Provider:Luz Elena Gunn PA-C Location:[facility] Appointment Type:URO New Patient Diagnostic Tests Pending * Urine Culture 07/04/24 [facility] 02-09-2025 Hospital Discharge instructions Patient Education 07/04/2024 [...] Treatment for this condition includes: Antibiotic medicine. Ieic-gib-nuhgwsw medicines to treat discomfort. Drinking enough water [...] Follow these instructions at home: Medicines Take zewy-jfp-jyfrexn and prescription medicines only as told by [...] provider. Document Revised: 12/17/2020 Document Reviewed: 12/22/2020 [employer] Patient Education 2023 [employer]. Follow Up Care 07/04/2024 06:55:16 With:AZUL GORMAN Address: [address] [place] [address]- [facility] (1) When:07/07/2024 08:55:41 Comments:Please follow-up with your primary provider in the coming days for repeat evaluation take the antibiotics as directed alternate Tylenol Motrin as needed for mild to moderate pain should you been experiencing fevers pain out of proportion nausea vomiting symptoms concerning to call 911 or return to the nearest emergency department immediately. [facility] 02-09-2025 NoteED Patient Education Note Obstetrics and [...] this condition includes: ??? Antibiotic medicine. ??? Mqvq-pmh-mpbguxy medicines to treat discomfort. ??? Drinking enough [...] these instructions at home: Medicines ??? Take ixpc-ulu-hehlffy and prescription medicines only as told by [...] care provider. Make zach (more content not included)...[facility]01-26-2025 Hospital Discharge instructions Patient Education 06/20/2024 14:43:42 [...] including vitamins, herbs, eye drops, creams, and lrko-ppc-dcxywnx medicines. Any problems you or family members [...] if you need an emergent specialist or integration consultant that is not available at the medical center you are at. You need to have more tests. A medical policy specialist may be consulted if needed. Get help [...] provider. Document Revised: 01/23/2022 Document Reviewed: 09/20/2021 [employer] Patient Education 2023 [employer]. Follow Up Care 06/20/2024 11:47:07 With:AZUL GORMAN Address: [address] [place] [address] Business (1) When:06/23/2024 14:43:08 Comments:Call the office [...] you develop any new or worsening symptoms. [facility] 01-26-2025 NoteED Patient Education Note Emergency Medicine [...] including vitamins, herbs, eye drops, creams, and fula-ejg-zebftud medicines. ??? Any problems you or family [...] if you need an emergent specialist or integration consultant that is not available at the medical center you are at. ??? You need to have more tests. A medical policy specialist may be consulted if needed. Get help [...] provider. Document Revised: 01/23/2022 Document Reviewed: 09/20/2021 [employer] Patient Education ? 2023 [employer].[facility] 06-20-2024 Evaluation + Plan noteExtracted from: Title:ED Note Author:Johny Willson DO Date: Dysuria (R30.0: Dysuria) Orders: Basic Metabolic Panel CBC w/ Auto Diff eGFR Extra Blue Tube Extra SST Tube UA with Cult Rflx Urine Culture Diagnostic Tests Pending * Urine Culture 06/20/24 [facility] 01-24-2025 NotePatient Education Obstetrics and Gynecology Urinary [...] this condition includes: ??? Antibiotic medicine. ??? Ajox-jbm-rqbshpy medicines to treat discomfort. ??? Drinking enough [...] these instructions at home: Medicines ??? Take lrws-kdc-bofmaqv and prescription medicines only as told by [...] Make sure you di (more content not included)...[facility]01-23-2025 Evaluation + Plan note Diagnostic Tests Pending * Urine Culture 06/17/24 [facility] 01-23-2025 Hospital Discharge instructions Follow Up Care 06/17/2024 08:46:13 With:AZUL GORMAN CNP Address: [address] [place], [place] [address] [address]- When: Unknown [facility] 12-22-2024 Hospital Discharge instructions Patient [...] water added (diluted fruit juice). Eat bland, zvhu-kr-kwqbob foods in small amounts as you are able. These foods include bananas, applesauce, rice, lean meats, toast, and crackers. Avoid fluids that contain a lot of sugar or caffeine, such as energy drinks, sports drinks, and soda. Avoid alcohol. Avoid spicy or fatty foods. General instructions Take fchy-bou-oeeuorw and prescription medicines only as told by your health care provider. Drink enough fluid to keep your urine pale yellow. Wash your hands often using soap and water for at least 20 seconds. If soap and water are not available, use hand pile driver engineer. Make sure that everyone in your [...] eating and drinking to prevent dehydration. Take aevc-zfb-apofskk and prescription medicines only as told by [...] provider. Document Revised: 11/16/2021 Document Reviewed: 11/16/2021 [employer] Patient Education 2023 [employer]. Follow Up Care 05/16/2024 12:49:37 With:Chico Link Address: [address] [phone] Business (1) When:05/19/2024 15:08:40 [facility] [id number] NoteED Patient Education Note Gastroenterology Nausea and [...] added (diluted fruit juice). ??? Eat bland, obxh-bf-wehfjo foods in small amounts as you are able. These foods include bananas, applesauce, rice, lean meats, toast, and crackers. ??? Avoid fluids that contain a lot of sugar or caffeine, such as energy drinks, sports drinks, andsoda. ??? Avoid alcohol. ??? Avoid spicy or fatty foods. General instructions ??? Take tujo-oly-xpfeuqj and prescription medicines only as told by your health care provider. ??? Drink enough fluid to keep your urine pale yellow. ??? Wash your hands often using soap and water for at least 20 seconds. If soap and water are not available, use hand pile driver engineer. ??? Make sure that everyone in your [...] and drinking to prevent dehydration. ??? Take orbc-cre-iezksvt and prescription medicines only as told by [...] provider. Document Revised: 11/16/2021 Document Reviewed: 11/16/2021 [employer] Patient Education ? 2023 [employer].[facility] 05-16-2024 Evaluation + Plan noteExtracted from: Title:ED Note Author:Jose Daniel PA-C te:05/16/24 Abdominal pain (R10.9: Unspe cified abdominal pain) Constipation (K59.00: Constipation, unspecified) Nausea & vomiting (R11.2: Nausea with vomiting, unspecified) Shortness of breath (R06.02: Shortness of breath) Orders: ondansetron, 4 mg = 1 tab(s), Oral, q6hr, PRN Nausea/Vomiting, # 12 tab(s), Refills(s) 0, Pharmacy: [facility]/pharmacy #[id number], 154, cm, 05/16/24 12:57:00 EST, Height/Length [...] with Cult Rflx XR Chest Single View [facility] 12-16-2024 Hospital Discharge instructions Patient Education 05/10/2024 [...] Follow these instructions at home: Medicines Take kfif-gnt-hjynzdg and prescription medicines only as told by [...] provider. Document Revised: 02/26/2023 Document Reviewed: 02/26/2023 [employer] Patient Education 2023 [employer]. Follow Up Care 05/10/2024 17:55:37 With:AZUL GORMAN Address: [place] [address] Business (1) When:05/13/2024 19:16:46 [facility] 12-16-2024 NoteED Patient Education Note Gastroenterology Abdominal [...] these instructions at home: Medicines ??? Take wxnn-dmq-lwoeapv and prescription medicines only as told by [...] provider. Document Revised: 02/26/2023 Document Reviewed: 02/26/2023 Elsevier Patient Education ? 2023 [employer].[facility] 05-04-2024 Evaluation + Plan note Diagnostic Tests Pending * UA with Cult Rflx 05/04/24 [facility] [id number] Hospital Discharge instructions Patient Education 05/03/2024 22:38:20 [...] Treatment for this condition includes: Antibiotic medicine. Gijp-hoh-cfekzaa medicines to treat discomfort. Drinking enough water [...] Follow these instructions at home: Medicines Take fkms-ekp-xgwxqhu and prescription medicines only as told by [...] provider. Document Revised: 12/17/2020 Document Reviewed: 12/22/2020 [employer] Patient Education 2023 [employer] Follow Up Care 05/03/2024 20:44:32 With:AZUL GORMAN Address: [facility] [place] [address] Business (1) When:05/06/2024 [facility] 12-09-2024 NoteED Patient Education Note Obstetrics and [...] this condition includes: ??? Antibiotic medicine. ??? Hpse-wus-kfatkgi medicines to treat discomfort. ??? Drinking enough [...] these instructions at home: Medicines ??? Take ydtr-wel-dadixmw and prescription medicines only as told by [...] care provider. Make zach (more content not included)...[facility]12-04-2024 Hospital Discharge instructions Follow Up Care 04/28/2024 12:17:47 With:[facility] Address:Unknown When:05/01/2024 14:54:23 With:AZUL GORMAN Address: [address] [place], [place] [id number] [facility] (1) When:05/01/2024 14:54:21 Comments:Call Dr for diagnosis based follow up [facility] [id number] Evaluation + Plan noteExtracted from: Title:ED Note Author:Alvaro BYRD, Rodrigue Bray te:04/28/24 Encounter for psychiatric as sessment (Z76.89: Persons encountering health services in other specified circumstances) Visual hallucinations (R44.1: Visual hallucinations) Orders: ciprofloxacin, 250 mg = 1 tab(s), Oral, q12hr, X 7 day(s), # 14 tab(s), Refills(s) 0, Pharmacy: [facility]/pharmacy #[id number], 154, cm, 04/21/24 13:16:00 EST, Height/Length [...] Diagnostic Tests Pending * Urine Culture 04/28/24 [facility] 12-02-2024 Hospital Discharge instructions Follow Up Care 04/26/2024 18:36:51 With:AZUL GORMAN Address: [address] [place] [address] Business (1) When:04/29/2024 19:13:41 Comments:Call Dr for diagnosis based follow up [facility] 12-02-2024 Evaluation + Plan note Diagnostic Tests Pending * Urine Culture 04/26/24 [facility] 12-01-2024 Hospital Discharge instructions Patient Education 04/25/2024 [...] Follow these instructions at home: Medicines Take xalg-nmv-sdaeajb and prescription medicines only as told by [...] provider. Document Revised: 12/22/2020 Document Reviewed: 12/22/2020 [employer] Patient Education 2023 [employer]. Follow Up Care 04/25/2024 13:58:52 With:AZUL GORMAN Address: [facility] [place] [address] Business (1) When:04/28/2024 15:27:24 [facility] 12-01-2024 NoteED Patient Education Note Urology Dysuria [...] these instructions at home: Medicines ??? Take hdec-mbz-azrprct and prescription medicines only as told by [...] provider. Document Revised: 12/22/2020 Document Reviewed: 12/22/2020 [employer] Patient Education ? 2023 [employer].[facility] 04-25-2024 NoteProgress Note-Nurse Patient has been to the restroom 3 times with small voids each time[facility] Evaluation + Plan noteExtracted from: Title:ED Note Author:Malick Ho PA-C te:04/25/24 Dysuria (R30.0: Dysuria) [facility] [id number] Hospital Discharge instructions Patient Education 04/21/2024 15:03:50 [...] Treatment for this condition includes: Antibiotic medicine. Nvrk-ifo-loimvxb medicines to treat discomfort. Drinking enough water [...] Follow these instructions at home: Medicines Take zbzl-aka-ijuhpdx and prescription medicines only as told by [...] provider. Document Revised: 12/17/2020 Document Reviewed: 12/22/2020 [employer] Patient Education 2023 [employer]. Follow Up Care 04/21/2024 13:02:47 With:AZUL GORMAN Address: [place] [address] Business (1) When:04/24/2024 14:36:30 Comments:Call for diagnosis based follow up [facility] 11-27-2024 NoteED Patient Education Note Obstetrics and [...] this condition includes: ??? Antibiotic medicine. ??? Qdlg-gso-xtugqqk medicines to treat discomfort. ??? Drinking enough [...] these instructions at home: Medicines ??? Take addw-kyw-xeejdve and prescription medicines only as told by [...] care provider. Make zach (more content not included)...[facility]11-27-2024 Evaluation + Plan noteExtracted from: Title:ED Note Author:Alvaro BYRD, Rodrigue Bray te:04/21/24 UTI (urinary tract infection ) (N39.0: Urinary tract infection, site not specified) Orders: ciprofloxacin, 250 mg = 1 tab(s), Oral, q12hr, X 7 day(s), # 14 tab(s), Refills(s) 0, [id number], 154, cm, 04/21/24 13:16:00 EST, Height/Length Dosing, 66, kg, 04/21/24 13:16:00 EST, Weight Dosing docusate, 50 mg = 1 cap(s), Oral, BID, PRN for constipation, X 10 day(s), # 20 cap(s), Refills(s) 0, Pharmacy: [facility]/pharmacy #[id number], 154, cm, 04/21/24 13:16:00 EST, Height/Length Dosing, 66, kg, 04/21/24 13:16:00 EST, Weight Dosing senna, 17.2 mg = 2 tab(s), Oral, Once a day (at bedtime), # 20 tab(s), Refills(s) 0, [id number], 154, cm, 04/21/24 13:16:00 EST, Height/Length Dosing, 66, kg, 04/21/24 13:16:00 EST, Weight Dosing Bladder Scan UA with Cult Rflx Urine Culture Diagnostic Tests Pending * Urine Culture 04/21/24 [facility] 11-25-2024 Hospital Discharge instructions Patient Education 04/19/2024 [...] as fried or sweet foods. These include armenian fries, hamburgers, cookies, candies, and soda. Drink enough fluid to keep your urine pale yellow. General instructions Exercise regularly or as told by your health care provider. Try to do 150 minutes of moderate exercise each week. Use the bathroom when you have the urge to go. Do not hold it in. Take rzfv-daf-whcarha and prescription medicines only as told by [...] to keep your urine pale yellow. Take hzao-wvv-lxriajr and prescription medicines only as told by your health care provider. This includes any fiber supplements. This information is not intended to replace advice given to you by your health care provider. Make sure you discuss any questions you have with your health care provider. Document Revised: 03/26/2023 Document Reviewed: 03/26/2023 [employer] Patient Education 2023 [employer]. Follow Up Care 04/19/2024 10:41:57 With:AZUL GORMAN Address: [place] [address]- Business (1) When:Within 3 Day(s) [facility] 11-25-2024 Evaluation + Plan noteExtracted from: Title:ED Note Author:Malick Ho PA-C te:04/19/24 Constipation (K59.00: Arias bermudez, unspecified) [facility] 11-25-2024 NoteED Patient Education Note Gastroenterology Constipation, [...] as fried or sweet foods. These include armenian fries, hamburgers, cookies, candies, and soda. ??? Drink enough fluid to keep your urine pale yellow. General instructions ??? Exercise regularly or as told by your health care provider. Try to do 150 minutes of moderate exercise each week. ??? Use the bathroom when you have the urge to go. Do not hold it in. ??? Take pkkk-ilf-wwhwpfm and prescription medicines only as told by [...] keep your urine pale yellow. ??? Take ejnp-yti-qboxckx and prescription medicines only as told by your health care provider. This includes any fiber supplements. This information is not intended to replace advice given to you by your health care provider. Make sure you discuss any questions you have with your health care provider. Document Revised: 03/26/2023 Document Reviewed: 03/26/2023 [employer] Patient Education ? 2023 [employer].[facility] 04-17-2024 Hospital Discharge instructions Patient Education 04/17/2024 [...] services (911 in the [place] Call the [facility] and human services helpline (211 in the [place] Call or text a suicide hotline to speak with a trained counselor. The following suicide hotlines are available in the [place]: ?5-623-897-TALK ( or 708 in the [place] ?3-718-HIZGRNL ( ). ?Text 964118. This is the Crisis Text Line in the [place] ? . This is a hotline for Kazakh speakers. ? . This is a hotline for TTY users. ?9-318-4-U-SARTHAK ( ). This is a hotline for lesbian, schmidt, bisexual, transgender, or questioning youth. ?For a list of hotlines in [place], visit suicide.org/hotlines/international/noaanp-vlofsfu-wlybznms.html Contact a crisis center or a local [...] list of crisis centers in [place], visit: suicideprevention.ar How to help yourself feel better Promise [...] to anyone or being with other people. ?Hyqg-xk-blag conversation is best to help them understand [...] physical and a mental health checkup. Take wpoo-fco-xjokdac and prescription medicines only as told by [...] information National Suicide Prevention Lifeline: www.suicidepreventionlifeline.org Hopeline: www.hopeline.com [employer] for Suicide Prevention: www.afsp.org The Sarthak Project (for lesbian, schmidt, bisexual, transgender, or questioning youth): www.thetrevorproject.org National [place] of Mental Health: www.nimh.nih.gov/health/topics/suicide-prevention Suicide Prevention Resources: afsp.org/qazcdmb-loxlkacvcy-quldceowq Contact a health care provider if: You [...] provider. Document Revised: 12/06/2021 Document Reviewed: 09/20/2021 [employer] Patient Education 2023 [employer]. Follow Up Care 04/17/2024 15:56:10 With:[facility] Address:Unknown When:04/20/2024 17:33:46 With:AZUL GORMAN Address: [address] [place] [address] Business (1) When:04/20/2024 17:33:41 Comments:Call Dr for diagnosis based follow up [facility] 11-23-2024 NoteED Patient Education Note Mental and [...] (911 in the [place] ??? Call the [facility] and [facility] helpline (211 in the [place] ??? Call or text a suicide hotline to speak with a trained counselor. The following suicide hotlines are available in the [place]: ? 5-234-193-TALK ( or 988 in the [place] ? 7-354-NXOHTRE ( ). ? Text 406429. This is the Crisis Text Line in the [place] ? . This is a hotline for Kazakh speakers. ? . This is a hotline for TTY users. ? 2-348-9-U-SARTHAK ( ). This is a hotline for lesbian, schmidt, bisexual, transgender, or questioning youth. ? For a list of hotlines in [place], visit suicide.org/hotlines/international/rqoyfm-qoqvozx-opaxjvno.html ??? Contact a crisis center or a [...] list of crisis centers in [place], visit: suicideprevention.ar How to help yourself feel better ??? [...] anyone or being with other people. ? Jxcu-qi-rvei conversation is best to help them understand [...] and a mental health checkup. ??? Take njxn-mux-bdlalxm and prescription medicines only as told by [...] out with help. Condition (more content not included)...[facility]11-20-2024 Hospital Discharge instructions Patient Education 04/14/2024 20:14:16 [...] quitting, ask your health care provider. Take dugw-ohn-xiyxkea and prescription medicines only as told by [...] provider. Document Revised: 05/01/2021 Document Reviewed: 03/20/2021 [employer] Patient Education 2023 [employer]. Follow Up Care 04/14/2024 17:46:14 With:Kye Barrientos Address: [address] [place] [address] Business (1) When:04/17/2024 20:10:49 Comments:Call the office [...] you develop any new or worsening symptoms. [facility] 11-20-2024 NoteED Patient Education Note Orthopedics Finger [...] ask your health care provider. ??? Take kxcc-brl-iifmjrb and prescription medicines only as told by [...] Document Reviewed: 03/20/2021 E (more content not included)...[facility]11-20-2024 Evaluation + Plan noteExtracted from: Title:ED Note Author:Johny Willson DO Date:1 06/14/23 Finger fracture (S62.609A: F racture of unspecified phalanx of unspecified finger, initial encounter for closed fracture) Ordered: acetaminophen-hydrocodone, 1 tab(s), Oral, q6hr for pain, 4 tab(s), Refill(s) 0, [id number], 154, cm, 04/14/24 18:05:00 EST, Height/Length Dosing, 66.1, kg, 04/14/24 18:05:00 EST, Weight Dosing Orders: acetaminophen-oxycodone, 1 tab(s), Tab, Oral, Once, Stop date 04/14/24 20:08:00 EST, STAT, Start date 04/14/24 20:08:00 EST Misc Prescription, Walker, See Instructions, 1 EA, 0, Dispense one walker, Supply Finger Splint Application Splint Application Wrist XR Hand 3+ Views Right [facility] 11-17-2024 Hospital Discharge instructions Patient Education 04/11/2024 [...] health care provider. Replacing nutrients Eat bland, hhpn-iu-csmhwh foods in small amounts as you are [...] provider. Document Revised: 10/29/2022 Document Reviewed: 10/29/2022 [employer] Patient Education 2023 [employer]. 04/11/2024 16:17:47 Diarrhea, Adult, Jsgp-pr-Zbzi Diarrhea, Adult Diarrhea is when you pass [...] regular sports drinks. ?Avoid alcohol. Eat bland, aumj-sx-rbkqpi foods in small amounts as you are able. These foods include: ?Bananas. ?Applesauce. ?Rice. ?Low-fat (lean) meats. ?Ault. ?Crackers. Avoid spicy or fatty foods. Medicines Take uaqx-ppg-lmifglg and prescription medicines only as told by your doctor. If you were prescribed antibiotics, take them as told by your doctor. Do not stop taking them even if you start to feel better. General instructions Wash your hands often using soap and water for 20 seconds. If soap and water are not available, usehand pile driver engineer. Others in your home should wash their [...] provider. Document Revised: 10/29/2022 Document Reviewed: 10/29/2022 [employer] Patient Education 2023 [employer]. 04/11/2024 16:17:46 Urinary Tract Infection, Adult, Zrqe-wx-Qcha Urinary Tract Infection, Adult A urinary tract [...] Follow these instructions at home: Medicines Take ynct-qgx-igukfdb and prescription medicines only as told by [...] provider. Document Revised: 12/17/2020 Document Reviewed: 12/22/2020 [employer] Patient Education 2023 [employer]. Follow Up Care 04/11/2024 12:41:03 With:AZUL GORMAN Address: [place] [address]- Business (1) When:1 to 2 days Comments:For urine culture results and stool examination results [facility] 11-17-2024 NoteED Patient Education Note Gastroenterology Food [...] care provider. Replacing nutrients ??? Eat bland, vnxr-jt-dfuwyd foods in small amounts as you are [...] provider. Document Revised: 10/29/2022 Document Reviewed: 10/29/2022 [employer] Patient Education ? 2023 [employer]. Infectious Disease Diarrhea, Adult Diarrhea is when [...] drinks. ? Avoid alcohol. ??? Eat bland, fdfi-uq-qswlce foods in small amounts as you are able. These foods include: ? Bananas. ? Applesauce. ? Rice. ? Low-fat (lean) meats. ? Ault. ? Crackers. ??? Avoid spicy or fatty foods. Medicines ??? Take qynj-yrg-wghjfll and prescription medicines only as told by your doctor. ??? If you were prescribed antibiotics, take them as told by your doctor. Do not stop taking them even if you start to feel better. General instructions ??? Wash your hands often using soap and water for 20 seconds. If soap and water are not available,use hand pile driver engineer. Others in your home should wash their hands as well. Wash your hands: ? After using the toilet or changing a diaper. ? Before preparing, cooking, or serving food. ? While caring for a sick person. ? While visiting someone in a hospital. ??? Rest at (more content not included)...[facility]11-17-2024 Evaluation + Plan noteExtracted from: Title:ED Note Author:Carlos Coates MD Date:04/11 1. Diarrhea (R19.7: Diarrhea , unspecified) Orders: acetaminophen-oxycodone, 1 tab(s), Tab, Oral, Once, Stop date 04/11/24 13:24:00 EST, STAT, Start date 04/11/24 13:24:00 EST amoxicillin, 500 mg = 1 cap(s), Oral, TID, X 7 day(s), # 21 cap(s), Refills(s) 0, Pharmacy: [id number], 154, cm, 04/11/24 12:51:00 EST, Height/Length Dosing, [...] WBC Lactoferrin 04/11/24 * Urine Culture 04/11/24 [facility] 11-14-2024 Hospital Discharge instructions Patient Education 04/08/2024 [...] Follow these instructions at home: Medicines Take gotw-sjs-snhaflp and prescription medicines only as told by [...] provider. Document Revised: 12/22/2020 Document Reviewed: 12/22/2020 [employer] Patient Education 2023 [employer] Follow Up Care 04/08/2024 11:46:19 With:AZUL GORMAN Address: [facility] [address] [place] [phone] Business (1) When:04/11/2024 13:02:27 [facility] 11-14-2024 Evaluation + Plan noteExtracted from: Title:ED Note Author:Malick oH PA-C te:04/08/24 Dysuria (R30.0: Dysuria) Orders: UA with Cult Rflx [facility] 11-14-2024 NoteED Patient Education Note Urology Dysuria [...] these instructions at home: Medicines ??? Take sytp-fec-hvogmyh and prescription medicines only as told by [...] provider. Document Revised: 12/22/2020 Document Reviewed: 12/22/2020 [employer] Patient Education ? 2023 [employer].[facility] 04-07-2024 Hospital Discharge instructions Patient Education 04/07/2024 [...] Follow these instructions at home: Medicines Take jwdf-bku-npscljy and prescription medicines only as told by [...] provider. Document Revised: 12/22/2020 Document Reviewed: 12/22/2020 [employer] Patient Education 2023 [employer]. Follow Up Care 04/07/2024 16:37:16 With:AZUL GORMAN Address: [place] [address] Business (1) When:04/10/2024 17:48:13 Comments:Return to the emergency room if your symptoms get worse, fever, vomiting or any new symptoms [facility] 11-13-2024 NoteED Patient Education Note Urology Dysuria [...] these instructions at home: Medicines ??? Take henv-kqo-mckcvos and prescription medicines only as told by [...] provider. Document Revised: 12/22/2020 Document Reviewed: 12/22/2020 [employer] Patient Education ? 2023 [employer].[facility] 04-07-2024 Evaluation + Plan noteExtracted from: Title:ED Note Author:Neva Newton, Didier Bray te:04/07/24 1. Dysuria (R30.0: Dysuria) Orders: Bladder Scan UA with Cult Rflx [facility] 11-10-2024 Hospital Discharge instructions Patient Education 04/04/2024 [...] Consider working with a physical therapist or link trainer operator who can develop an exercise plan to help you gain muscle strength. General instructions Take rhnn-zaw-ynatpof and prescription medicines only as told by [...] provider. Document Revised: 04/14/2022 Document Reviewed: 04/14/2022 [employer] Patient Education 2023 [employer]. Follow Up Care 04/04/2024 12:44:18 With:AZUL GORMAN Address: [facility] [place] [address] Business (1) When:04/07/2024 14:50:16 [facility] 11-10-2024 NoteED Patient Education Note Neurology Weakness [...] Consider working with a physical therapist or link trainer operator who can develop an exercise plan to help you gain muscle strength. General instructions ??? Take bbae-cij-wyovcqx and prescription medicines only as told by [...] provider. Document Revised: 04/14/2022 Document Reviewed: 04/14/2022 [employer] Patient Education ? 2023 [employer].[facility] 04-04-2024 Evaluation + Plan noteExtracted from: Title:ED Note Author:Malick Ho PA-C te:04/04/24 Weakness (R53.1: Weakness) Orders: Basic Metabolic Panel CBC w/ Auto Diff eGFR Extra Blue Tube Extra SST Tube Troponin 0 Hr. UA with Cult Rflx XR Chest Single View Future Appointments Appointment Date:04/05/2024 01:15:00 PM Scheduled Provider: Location:.OCCUPATIONAL Appointment Type:OT Eval () [facility] 11-04-2024 History of Present illness Narrative* Ciarra [...] 03/31/2024 7:56 AM EST documented in [facility] encounterW[facility] [id number] Hospital Discharge instructions Patient Education 03/18/2024 17:17:52 Choi Catheter Care, Female-[facility] [place] (Custom) Choi Catheter Care, Female A Choi [...] cotton underwear to absorb moisture and keep bobbin drier. 6. Keep the drainage bag below the [...] Up Care 03/18/2024 15:51:21 With:AZUL GORMAN Address: [address] [place] [address]- Business (1) When:Within 3 Day(s) [facility] 10-24-2024 NoteED Patient Education Note Choi Catheter [...] cotton underwear to absorb moisture and keep bobbin drier. 6. Keep the drainage bag below the [...] follow up appointments and call with any concerns.[facility]10-24-2024 Evaluation + Plan noteExtracted from: Title:ED Note Author:Ana Layton PA-C e:03/18/24 1. Problem with Choi cathet er [...] voices understanding and is agreeable to plan. [facility] [id number] Evaluation + Plan noteExtracted from: Title:Discharge Note Author:ARTIE RAMOS, Mbanefo Melania ate:03/16/24 Stable Discharge To, Anticipated II - Home with responsible caregiver Discharged to - Home with family long-term Discharge Diet(s): Regular (03/16/24 08:51:00) Prescriptions amoxicillin-clavulanate 875 mg-125 mg Tab, 1 tab(s), Oral, BID clonazepam 1 mg Tab, 1 mg= 1 tab(s), Oral, TID Colace 100 mg Cap, 100 mg= 1 cap(s), Oral, BID, Not taking Ensure Vanilla, See Instructions, 5 refills fluticasone 0.05 mg/inh Nasal [place], 2 spray(s), Nasal, Daily, 5 refills, Not [...] Information AZUL GORMAN 03/23/2024 01:30 [place] [address] [facility] (1) Additional Instructions: Keep scheduled appointment on [...] it at home. Extracted from: Title:APSO Note Author:Geraldien GARCIA MDfo Date: 74-year-old female with COPD , obstructive [...] made to ensure accuracy. However inadvertent computerized fisheries director errors may be present. Latonya Garcia. Hospitalist. Orders: Patient Specific Meds, clonazepam, Each, Oral, TID PRN Anxiety, Routine, Start date 03/15/24 12:21:00 EDT Communication Order Consult to Mail List Processor Occupational Therapy Additional Tx Occupational Therapy Evaluate Patient, Develop a Plan of Care and Implement Plan Physical Therapy Additional Tx Physical Therapy Evaluate Patient, Develop a Plan of Care and Implement Plan Referral to Resource Center Extracted from: Title:APSO Note Author:ARTIE RAMOS, Latonya Date:1 74-year-old female with COPD , obstructive sleep [...] prior to discharge. Ordered: Oxygen Desaturation Study [facility] Hospital Care/Day Moderate 35 Minutes 83303 2. COPD with hypoxia (J44.9: Chronic obstructive pulmonary disease, unspecified) Stable. Continue on nebulizer treatments as needed. Ordered: [facility] Hospital Care/Day Moderate 35 Minutes 31078 3. Atelectasis (J98.11: Atelectasis) Contributing to above. Started patient on incentive spirometry. 4. Catheter-associated urinary tract infection (T83.511A: Infection and inflammatory reaction due to indwelling urethral catheter, initial encounter) Multi organism catheter associated urinary tract infection. Present on admission. Switched antibiotic to Augmentin for better coverage. Ordered: [facility] Hospital Care/Day Moderate 35 Minutes 24609 5. Closed head injury (S09.90XA: Unspecified injury of head, initial encounter) Secondary to recent fall. Supportive care. Ordered: [facility] Hospital Care/Day Moderate 35 Minutes 03536 6. Fall (W19.XXXA: Unspecified fall, initial encounter) [...] made to ensure accuracy. However inadvertent computerized fisheries director errors may be present. Latonya Garcia. Hospitalist. Orders: amoxicillin-clavulanate, 1 tab(s), Tab, Oral, BID, Start date 03/15/24 9:00:00 EDT Consult to Mail List Processor Occupational Therapy Evaluate Patient, Develop a Plan of Care and Implement Plan Physical Therapy Evaluate Patient, Develop a Plan of Care and Implement Plan Extracted from: Title:Admission H & P Author:Moreno Tirado DO. Date:03/14/24 74-year-old female admitted for acute respiratory [...] midnight stays for inpatient status Addendum by Hiram RAMOS, [place] larios on March 14, 2024 20:33:54 EDT Completed [...] to the hospitalist services. Additional diagnosis: Hypoxia [facility] 10-22-2024 NoteDischarge Summary Admission and Discharge Information [...] at home. She was subsequently admitted to [facility] with acute respiratory failure with hypoxia secondary [...] Adult - Ordered -- 03/14/24 13:44:57 EDT Mail List Processor Consult - Completed -- 03/15/24 8:53:00 EDT, [...] caregiver Discharged to - Home with family long-term Discharge Diet Discharge Diet(s): Regular (03/16/24 08:51:00) Discharge Medication List Prescriptions amoxicillin-clavulanate 875 mg-125 mg Tab, 1 tab(s), Oral, BID clonazepam 1 mg Tab, 1 mg= 1 tab(s), Oral, TID Colace 100 mg Cap, 100 mg= 1 cap(s), Oral, BID, Not taking Ensure Vanilla, See Instructions, 5 refills fluticasone 0.05 mg/inh Nasal [place], 2 spray(s), Nasal, Daily, 5 refills, Not [...] ODT 4 mg Tab-Dis (more content not included)...[facility]:Result Comment: Electronically Signed By: ARTIE RAMOS, Latonya\.br\Date and Time Signed: 03/16/24 12:18 [id number] NoteHumera Learning Participants Patient [employer]era Understands Education Yes [employer] Education Video Avoiding Infections in the [facility]10-22-2024 Note Progress Note-Physician Assessment/Plan 74-year-old female with [...] made to ensure accuracy. However inadvertent computerized fisheries director errors may be present. Latonya Garcia. Hospitalist. Orders: Patient Specific Meds, clonazepam, Each, Oral, TID PRN Anxiety, Routine, Start date 03/15/24 12:21:00 EDT Communication Order Consult to Mail List Processor Occupational Therapy Additional Tx Occupational Therapy Evaluate [...] Results No qualifying marlon (more content not included)...[facility] Comment on above:Result Comment: Electronically Signed By: ARTIE RAMOS, Latonya\.br\Date and Time Signed: 03/16/24 08:50 [id number] Note Interdisciplinary Note - Basket Braider DARLIN received a consult for a referral to [employer]. SW made tc to [facility] and confirmed that patient is not current with a [employer] Live Out Nanny. Referral was left on the intake line, requesting that they contact patient the end of the week to schedule a [employer]port Assessment. SW will remain available.[facility]10-21-2024 NoteInterdisciplinary Note - PT PT evaluation completed. [...] vs. no needs upon discharge depending on progress.[facility]10-21-2024 NoteProgress Note-Physician Assessment/Plan 74-year-old female with COPD, [...] prior to discharge. Ordered: Oxygen Desaturation Study [facility] Hospital Care/Day Moderate 35 Minutes 63539 2. COPD with hypoxia (J44.9: Chronic obstructive pulmonary disease, unspecified) Stable. Continue on nebulizer treatments as needed. Ordered: [facility] Care/Day Moderate 35 Minutes 99546 3. Atelectasis (J98.11: Atelectasis) Contributing to above. Started patient on incentive spirometry. 4. Catheter-associated urinary tract infection (T83.511A: Infection and inflammatory reaction due to indwelling urethral catheter, initial encounter) Multi organism catheter associated urinary tract infection. Present on admission. Switched antibiotic to Augmentin for better coverage. Ordered: [facility] Care/Day Moderate 35 Minutes 66051 5. Closed head injury (S09.90XA: Unspecified injury of head, initial encounter) Secondary to recent fall. Supportive care. Ordered: [facility] Care/Day Moderate 35 Minutes 08038 6. Fall (W19.XXXA: Unspecified fall, initial encounter) [...] made to ensure accuracy. However inadvertent computerized fisheries director errors may be present. Latonya Garcia. Hospitalist. Orders: amoxicillin-clavulanate, 1 tab(s), Tab, Oral, BID, Start date 03/15/24 9:00:00 EDT Consult to Mail List Processor Occupational Therapy Evaluate Patient, Develop a Plan [...] for age, CN I (more content not included)...[facility]:Result Comment: Electronically Signed By: ARTIE RAMOS, Latonya\.br\Date and Time Signed: 03/15/24 10:05 [id number] NoteHistory and Physical Basic Information Admit Date/Time:03/14/2024 [...] 9. 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 History of agent orange [...] and lens implantation 6. Patient has a Phoenix filter per son FAMILY HISTORY Mother from [...] psychiatric thoughts. Lab Res (more content not included)...[facility]:Result Comment: Electronically Signed By: Ana Gandhi MD\.olegario\Date and Time Signed: 03/14/24 20:37 [id number] Hospital Discharge instructions Patient Education 03/14/2024 10:12:11 [...] your friends, family, a trusted colleague, and clinical social worker about your injury, symptoms, and restrictions. Ask them to watch for any problems that are new or get worse. General instructions Take dfux-ong-rpmvvha and prescription medicines only as told by [...] provider. Document Revised: 02/27/2023 Document Reviewed: 02/27/2023 [employer] Patient Education 2023 [employer]. Follow Up Care 03/14/2024 04:52:52 With:AZUL GORMAN Address: [facility] [place] [address] Business (1) When:03/23/2024 13:30:00 Comments:Keep scheduled appointment on . [facility] 10-20-2024 NoteED Patient Education Note Neurology Head [...] your friends, family, a trusted colleague, and clinical social worker about your injury, symptoms, andrestrictions. Ask them to watch for any problems that are new or get worse. General instructions ? Take hsqb-fed-mertmub and prescription medicines only as told by [...] or . The ri (more content not included)...[facility]10-20-2024 NoteProgress Note-Nurse Dr. Hooks saw patient and patient verbalized she will stay in hospital.[facility]10-20-2024 NoteProgress Note-Nurse Patient ambulated with pulse ox and patient 91% to 89% and Dr. Hooks and patient verbalized she would like to go home. Per Dr. Hooks patient to leave AMA. Primary nurse JUAN MIGUEL Renae awareKind[facility]10-[facility]-2024 Note Progress Note-Nurse Nurse into discharge patient and patient pulse ox in the high 80's and will go to 91% on RA and drop to 80's. Patient son verbalized patient has bipap at home but does not wear. Dr. Hooks aware andrequested ambulation with pulse ox. [facility]10-18-2024 Hospital Discharge instructions Patient Education 03/12/2024 16:28:51 [...] Follow these instructions at home: Medicines Take lygu-njv-slcnepr and prescription medicines only as told by [...] provider. Document Revised: 01/31/2021 Document Reviewed: 01/31/2021 [employer] Patient Education 2023 [employer]. Follow Up Care 03/12/2024 12:23:00 With:AZUL GORMAN Address: [facility] [place] [address] Business (1) When:03/15/2024 16:03:56 [facility] 10-18-2024 NoteED Patient Education Note Obstetrics and [...] these instructions at home: Medicines ? Take tffg-jgk-nbyshxd and prescription medicines only as told by [...] provider. Document Revised: 01/31/2021 Document Reviewed: 01/31/2021 [employer] Patient Education ? 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 Follow Up Care 03/11/2024 11:41:08 With:AZUL GORMAN Address: [place] [address] [facility] (1) When:03/14/2024 14:02:11 Comments:Make sure to follow-up with your primary doctor as discussed. Return to the emergency room if your symptoms get worse, fever or any new symptoms [facility] 10-17-2024 NoteED Patient Education Note Urology Dysuria [...] these instructions at home: Medicines ? Take yzhe-ngb-ahbrqsn and prescription medicines only as told by [...] provider. Document Revised: 12/22/2020 Document Reviewed: 12/22/2020 [employer] Patient Education ? 2023 [employer].[facility] 03-11-2024 Evaluation + Plan noteExtracted from: Title:ED Note Author:Didier Hooks M.D. te:03/11/24 1. Dysuria (R30.0: Dysuria) Orders: phenazopyridine, 200 mg = 1 tab(s), Oral, TID, X 3 day(s), # 9 tab(s), Refills(s) 0, Pharmacy: [facility]/pharmacy #[id number], 154.9, cm, 03/11/24 11:50:00 EDT, Height/Length Dosing, 66, kg, 03/11/24 11:50:00 EDT, Weight Dosing UA with Cult Rflx [facility] 10-15-2024 Evaluation + Plan noteExtracted from: Title:ED [...] day(s), # 10 cap(s), Refills(s) 0, Pharmacy: [facility]/pharmacy #[id number], 154.9, cm, 03/09/24 6:37:00 EDT, Height/Length Dosing, 65.9, kg, 03/09/24 6:37:00 EDT, Weight Dosing UA with Cult Rflx Diagnostic Tests Pending * Urine Culture 03/09/24 [facility] 10-15-2024 Hospital Discharge instructions Patient Education 03/09/2024 06:54:09 Urinary Tract Infection, Adult, Mgkm-dy-Yihq Urinary Tract Infection, Adult A urinary tract [...] Follow these instructions at home: Medicines Take xcfp-jhb-ufjrwmw and prescription medicines only as told by [...] provider. Document Revised: 12/17/2020 Document Reviewed: 12/22/2020 [employer] Patient Education 2023 [employer] Follow Up Care 03/09/2024 06:22:39 With:AZUL GORMAN Address: [place] [address]- Business (1) When:03/12/2024 06:48:23 Comments:Start taking the Macrobid twice daily until you have completed the course. Please follow-up with your primary care doctor for further evaluation management. Return to the ED for any new or worsening symptoms. [facility] 10-15-2024 NoteED Patient Education Note Obstetrics and [...] these instructions at home: Medicines ? Take oide-kap-ibeonmv and prescription medicines only as told by [...] provider. Document Revised: 12/17/2020 Document Reviewed: 12/22/2020 [employer] Patient Education ? 2023 [employer].[facility] 02-24-2024 Hospital Discharge instructions Patient Education 02/24/2024 [...] Treatment for this condition includes: Antibiotic medicine. Nelz-bdd-qysihrq medicines to treat discomfort. Drinking enough water [...] Follow these instructions at home: Medicines Take luku-czo-hghvdzy and prescription medicines only as told by [...] provider. Document Revised: 12/17/2020 Document Reviewed: 12/22/2020 [employer] Patient Education 2023 [employer]. Follow Up Care 02/24/2024 11:17:35 With:AZUL GORMAN Address: [facility] [address] [facility] [place] [address] Business (1) When:02/27/2024 12:33:17 [facility] 10-01-2024 Evaluation + Plan noteExtracted from: Title:ED Note Author:Malick Ho PA-C te:02/24/24 Bacterial infection, unspeci fied (A49.9: Bacterial infection, unspecified) UTI (urinary tract infection), bacterial (N39.0: Urinary tract infection, site not specified) Orders: nitrofurantoin, 100 mg = 1 cap(s), Oral, BID, X 7 day(s), # 14 cap(s), Refills(s) 0, Pharmacy: [facility]/pharmacy #[id number], 162, cm, 02/24/24 11:22:00 EDT, Height/Length Dosing, 61.2, kg, 02/24/24 11:22:00 EDT, Weight Dosing UA with Cult Rflx Urine Culture Diagnostic Tests Pending * Urine Culture 02/24/24 [facility] 10-01-2024 NoteED Patient Education Note Obstetrics and [...] this condition includes: ? Antibiotic medicine. ? Lhgw-fmt-oszupyj medicines to treat discomfort. ? Drinking enough [...] these instructions at home: Medicines ? Take mkzr-siz-xwnubex and prescription medicines only as told by [...] care provider. Document Revise (more content not included)...[facility] 02-23-2024 Hospital Discharge instructions Patient Education 02/23/2024 19:58:32 Acute Urinary Retention, Female, Anov-to-Ojdo Acute Urinary Retention, Female Acute urinary retention [...] Follow these instructions at home: Medicines Take kcfr-byz-vegjwte and prescription medicines only as told by [...] provider. Document Revised: 01/31/2021 Document Reviewed: 01/31/2021 [employer] Patient Education 2023 [employer] Follow Up Care 02/23/2024 18:03:01 With:AZUL GORMAN Address: [address] [place] [address] [facility] [place] [address] Business (1) When:02/26/2024 19:24:47 Comments:Call Dr for diagnosis based follow up [facility] 09-30-2024 NoteED Patient Education Note Obstetrics and [...] these instructions at home: Medicines ? Take udjb-nfb-ysjnnlz and prescription medicines only as told by [...] provider. Document Revised: 01/31/2021 Document Reviewed: 01/31/2021 ElseProducteev Patient Education ? 2023 [facility] Evaluation + Plan note Diagnostic Tests Pending * [place] with Cult Rflx 02/23/24 [facility] 09-30-2024 History of Present illness Narrative* Ciarra Loomis [...] will work on some formal therapy through [facility]. We will see her back here in another three weeks for x-ray and recheck. All of her questions are otherwise answered this day. She is discharged in stable condition. documented in this encounterWright Memorial [id number] Evaluation + Plan note Extracted from: Title:ED Note Author:Chandan Adhikari DO Date:01/24 08/16 Dysuria (R30.0: Dysuria) Orders: cephalexin, 500 mg = 1 cap(s), Oral, q12hr, X 5 day(s), # 10 cap(s), Refills(s) 0, Pharmacy: [facility]/pharmacy #[id number], 162, cm, 02/06/24 7:46:00 EDT, Height/Length Dosing, 61, kg, 02/06/24 7:46:00 EDT, Weight Dosing ondansetron, 4 mg = 1 tab(s), Tab-Dis, SubLingual, Once, Stop date 02/06/24 8:42:00 EDT, Start date 02/06/24 8:42:00 EDT .UA With Cult Reflex Basic Metabolic Panel CBC w/ Auto Diff eGFR UA with Cult Rflx Urine Culture Diagnostic Tests Pending * Urine Culture 02/06/24 [facility] [id number] Hospital Discharge instructions Patient Education 02/06/2024 10:38:37 Urinary Tract Infection, Adult, Ikoi-gy-Ehpk Urinary Tract Infection, Adult A urinary tract [...] Follow these instructions at home: Medicines Take lyyp-qmt-kkamqju and prescription medicines only as told by [...] provider. Document Revised: 12/17/2020 Document Reviewed: 12/22/2020 [employer] Patient Education 2023 [employer]. Follow Up Care 02/06/2024 07:34:13 With:AZUL GORMAN Address: [facility] [place] [address]- Business (1) When:Within 3 Day(s) [facility] 09-13-2024 NoteED Patient Education Note Obstetrics and [...] these instructions at home: Medicines ? Take fqps-zct-bbhmdoi and prescription medicines only as told by [...] provider. Document Revised: 12/17/2020 Document Reviewed: 12/22/2020 [employer]ian Patient Education ? 2023 [employer].[facility] 02-02-2024 History of Present illness Narrative* Ciarra [...] [facility]. [facility]. She denies any numbness [...] 2 SPRAYS INTO EACH NOSTRIL DAILY HYDROcodone-acetaminophen ([place]wood) 5-325 MG tablet May take 1 tablet [...] answered this day. She is refilled her [place] 5/325 #30 no refills. She is taking two to three per day. This does appearto be clinically indicated and cost effective. OARRS report has been done. This is to last seven days. The case has been discussed with her pain management provider as she is on a morphine pump. Theydid recommend that we treat her pain. documented in this encounterWright Memorial [id number] Evaluation + Plan note Diagnostic Tests Pending * Urine Culture 01/30/24 [facility] 08-19-2024 History of Present illness Narrative* Ciarra [...] pump with painmanagement specialist out of the [place], [place] area. She states she is in [...] 2 SPRAYS INTO EACH NOSTRIL DAILY HYDROcodone-acetaminophen ([place]wood) 5-325 MG tablet 1 tablet, Oral, Every [...] deformity. X-rays AP, lateral and oblique from [facility] does show an intraarticular comminuted distal radius [...] her. We will obtain comment from her bumper and painter. She does become very agitated asking what [...] physician. Jose Stroud D.O. documented in this encounterWright Memorial [id number] Hospital Discharge instructions Patient Education 01/10/2024 22:20:27 [...] cast on your arm. General instructions Take ogdd-nhs-lcgznmm and prescription medicines only as told by [...] provider. Document Revised: 08/29/2021 Document Reviewed: 08/29/2021 [employer] Patient Education 2022 [employer]. Follow Up Care 01/10/2024 20:33:47 With:Kye Barrientos Address: [address] [place] [address] Business (1) When:01/13/2024 21:59:27 With:AZUL GORMAN Address: [address] [place] [address] [place] [address] Business (1) When:Within 3 Day(s) [facility] 08-17-2024 NoteED Patient Education Note Orthopedics Radial [...] while you are sitting (more content not included)...[facility]08-17-2024 Evaluation + Plan noteExtracted from: Title:ED Note Author:Jose Daniel PA-C te:01/10/24 Distal radius fracture (S52. 509A: Unspecified [...] 61, kg, 01/10/24 20:56:00 EDT, Weight Dosing [facility] 08-09-2024 Evaluation + Plan note Diagnostic Tests Pending * Urine Culture 01/02/24 [facility] 08-09-2024 Hospital Discharge instructions Patient Education 01/02/2024 [...] more information National Heart, Lung, and Blood [place]: www.nhlbi.nih.gov [place] [employer]: www.heart.org Contact a health care [...] provider. Document Revised: 01/24/2022 Document Reviewed: 01/24/2022 [employer] Patient Education 2022 [employer]. 01/02/2024 11:43:03 Urinary Tract Infection, Adult, Xykk-ey-Vztp Urinary Tract Infection, Adult A urinary tract [...] Follow these instructions at home: Medicines Take phzb-bhk-fuvhwdt and prescription medicines only as told by [...] provider. Document Revised: 12/22/2020 Document Reviewed: 12/22/2020 [employer] Patient Education 2022 [employer]. Follow Up Care 01/02/2024 10:41:52 With:AZUL GORMAN CNP Address: [address] [place] [address]- When: Unknown [facility] 08-09-2024 NotePatient Education Cardiovascular Managing [...] and if: ? Yo (more content not included)...[facility]07-15-2024 Hospital Discharge instructions Follow Up Care 12/08/2023 14:47:07 With:Sofia RAMOSGala, PUL, ZACH Address: [address] [place] [address] [facility] [place] [address]- When:6 weeks [facility] 04-19-2024 Evaluation + Plan noteExtracted from: Title:Discharge Note Author:Gumaro WELLINGTON MD Marlon e:09/12/23 stable Discharge To, Anticipated II - Penit[facility]iary Unit Discharged to - prison unit SNF Discharge Diet(s): Regular (09/12/23 09:18:00) Prescriptions clonazepam 1 mg Tab, 1 mg= 1 tab(s), Oral, TID Colace 100 mg Cap, 100 mg= 1 cap(s), Oral, BID Ensure Vanilla, See Instructions, 5 refills fluticasone 0.05 mg/inh Nasal [place], 2 spray(s), Nasal, Daily, 5 refills mupirocin [...] Contact Information AZUL GORMAN In 0 days [address] [place] [address] [facility] (1) Additional Instructions: Urinary Tract Infection, Adult, Dkto-tu-Jxoy Neurogenic Bladder Discharge time >30 min Extracted from: Title:Admission H & P Author:Ana Gandhi MD Date:09/07/23 1. Encephalopathy (G93.40: E ncephalopathy, unspecified) Likely related to underlying behavioral issues or dementia. She has a known hx Bipolar disorder. Medical workup negative. Patient admitted to earlier this month. P was contacted in the ED and did [...] Level UA with Cult Rflx Urine Culture [facility]04-19-2024 Hospital Discharge instructions Patient Education 09/12/2023 09:18:37 Urinary Tract Infection, Adult, Abek-qc-Qlkk Urinary Tract Infection, Adult A urinary tract [...] Follow these instructions at home: Medicines Take qygl-tut-zfroigk and prescription medicines only as told by [...] provider. Document Revised: 12/22/2020 Document Reviewed: 12/22/2020 [employer]ian Patient Education 2022 [employer]. 09/12/2023 09:18:31 Neurogenic Bladder Neurogenic Bladder Neurogenic [...] your health care provider. General instructions Take hhoc-hyy-sctypgs and prescription medicines only as told by [...] provider. Document Revised: 01/25/2021 Document Reviewed: 01/25/2021 [employer] Patient Education 2022 [employer]. Follow Up Care 09/07/2023 19:32:47 With:AZUL GORMAN Address: [facility] [address], [place] [address] [facility] (1) When: Unknown [facility]04-19-2024 NoteAdmission and Discharge Information Admitting Physician - [...] her house partying and she called the surveillance sensor officer because she was scared.) She was evaluated by P that time and was admitted to . [...] EDT, hallucinations, Consult and Co-manage Consult to Mail List Processor - Completed -- 09/07/23 23:12:00 EDT, See [...] moist, no pharyn (more content not included)... [facility]Result Comment: Electronically Signed By: MAYI RAMOS, Gumaro\.olegario\Date and Time Signed: 09/12/23 09:21EDT 09-08-2023 NotePT Evaluation done this date. Pt. with on AM-PAC this date. She needs boot on when up and uses cane at home, would likely benefit from using her FWW. She requires assist with activity for safety, recommend SNF at this time.[facility]04-14-2024 NoteChief Complaint pt. via [facility] for [facility], states she is seeing [...] her house partying and she called the surveillance sensor officer because she was scared.) She was evaluated by [facility] that time and was admitted to . It is of note that she had some urinary complaints at that time. UA was negative. Apparently this time aroundshe has been seeing her mother at home. [...] resulted. She has no leukocytosis or fever. [facility] was contacted, but felt this was no [...] 12.8 gm/dL (09/07/23 20:12:00) Hct: 39.1 % (09/07/23:12:00) MCV: 87.1 fL (09/07/23:12:00) MCH: 28.5 pg (09/07/23:12:00) MCHC: 32.7 gm/dL (09/07/23:12:00) RDW: 12.5 % (09/07/23:12:00) Platelet: 257 E9/L (09/07/23:12) MPV: 7.4 fL (09/07/23:12:00) Neutro Auto: 67.6 % (09/07/23:12:) Lymph Auto: 20 % (09/07/2312) [place] Auto: 9.5 % (09/07/2312) Eos Auto: 2.3 % (09/07/2312) Basophil Auto: 0.6 % (09/07/23:) Neutro Absolute: 5 E9/L (09/07/23:12:) Lymph Absolute: 1.5 E9/L (09/07/23:12:) [place] Absolute: 0.7 E9/L (09/07/23:12:) Eos Absolute: 0.2 E9/L (09/07/23:12:) Basophil Absolute: 0 E9/L (09/07/23:12:00) Glucose Lvl: 107 mg/dL (09/07/23:12:00) BUN: 23 mg/dL High (09/07/23:12:00) Creatinine: 1.1 mg/dL (09/07/23:12:00) eGFR: 52 mL/min/1.73 m2 Low (09/07/23:12:00) BUN/Creat Ratio: 21 High (09/07/23:12:00) Sodium Lvl: 137 mmol/L (09/07/23 20:12:00) Potassium Lvl: 4.3 mmol/L (09/07/23 20:12:00) Chloride: 99 mmol/L Low (09/07/23:12:00) CO2: 30 mmol/L (09/07/23 20:12:00) AGAP: 12 mEq/L (09/07/23 20:12:00) Calcium Lvl: 9.8 mg/dL (09/07/23 20:12:00) Alk Phos: 85 Int._Unit/L (09/07/23 20:12:00) ALT: 8 Int._Unit/L (09/07/23 20:12:00) AST: 17 Int._Unit/L (09/07/23 20:12:00) Total Protein: 7 gm/dL (09/07/23 20:12:00) Albumin Lvl: 4.2 gm/dL (09/07/23 20:12:00) Globulin: 2.8 gm/dL (09/07/23 20:12:00) A/G Ratio: 1.5 (09/07/23 20:12:00 (more content not included)...[facility]:Result Comment: Electronically Signed By: Hiram RAMOS, Ana\.br\Date and Time Signed: 09/07/23 23:27 [id number] Discharge summary Author Julian Arechiga [facility] September 02, 2023 11:01am Note Date/Time September 02, 2023 11:0 1am [facility] [address] [place] [address] Discharge Summary Signed Patient: Maegan Dye MR#: [id number] 9 : 1950 Acct:[id number] Age/Sex: 73 / F Adm Date: 4 Loc: Room: [address] [place] [address]: Julian Arechiga MD Copies to: Julian Arechiga MD NO FAMILY PHYSICIAN~ Providers Date of Discharge: 09/02/23 Discharging Provider: Julian Arechiga Primary Care Provider: PHYSICIAN NO FAMILY Consults: 08/27/23 16:07 Consult to Case Management Routine Comment: CM Reason for Consult: Abuse/Neglect Mail List Processor-General Other and/or Abuse/Neglect Consult Reasons: Patient states [...] Treat Extended Comment: Evaluate and treat for fpc facility placement. 08/30/23 09:25 Consult to Occupational [...] and increased confusion. Reportedly, [facility] after she called police about her son. Told staff that her son is an alcoholic and he is bringing people into the house. Purvi wants her to be at a fdc, but she does not. She was medically cleared and admitted to [address] for further management. Upon admission, she [...] taking care of herself, and sometimes her friend/waistline joiner lockstitch helps her. She is unable to tell [...] use Living: Lives in mobile home in [place] with her son Employment: Not employed Patient [...] Instructions: Important Contact Information You can call [facility] at [phone] any time day or night if you have emergent questions or question regarding discharge instructions. If at any time you are feeling an increase inyour psychiatric symptoms, call your physician or behavioral healthcare provider. If any time you have thoughts of harming yourself or others contact one of the following: Call (available 16/12) Crisis Text Line (available 16/12) text 4HOPE to [phone] [facility] Hope Line (available 8 a.m. Midnight) call [phone] ([phone]) Regular Diet Ambulate as Tolerated Instructions: Bipolar Disorder (DC), [facility] DC Instructions Prescriptions: New quetiapine [...] Tablet 10 mg PO QPM Follow Up: [facility] ([place]) [Outside] ( Friday09/03/23 at 9:45am with Azul PCP appointment for home health referral. ) Documented By: Julian Arechiga MD 09/02/23 1059 Signed By: <Electronically signed by Julian Arechiga MD> 09/02/23 1101 [facility] Work Phone: 1(136) 281-801904-08-2024 Progress note Author Julian Arechiga [facility] September 01, 2023 12:11pm Note Date/Time September 01, 2023 12:1 1pm [facility] [address] [place] [address] Psychiatry Progress Note Signed Patient: Maegan Dye MR#: [id number] 9 : 1950 Acct:[id number] Age/Sex: 73 / F Adm Date: 4 Loc: Room: [address] [place] [address] Type : ADM IN Attending Dr: Julian [...] signed by Julian Arechiga MD> 09/01/23 1211 [facility] Work Phone: 1(525) 172-556504-07-2024 Progress note Author Julian Arechiga [facility] August 31, 2023 12:45pm Note Date/Time August 31, 2023 12:4 5pm [facility] [address] [place] [address] Psychiatry Progress Note Signed Patient: Maegan Dye MR#: [id number] 9 : 1950 Acct:[id number] Age/Sex: 73 / F Adm Date: 4 Loc: Room: [address] [place] [address] Type : ADM IN Attending Dr: Julian [...] signed by Julian Arechiga MD> 08/31/23 1245 [facility] Work Phone: 1(491) 159-297604-06-2024 Progress note Author Julian Arechiga [facility] August 30, 2023 11:21am Note Date/Time August 30, 2023 11:2 1am [facility] [address] [place] [address] Psychiatry Progress Note Signed Patient: Maegan Dye MR#: [id number] 9 : 1950 Acct:[id number] Age/Sex: 73 / F Adm Date: 4 Loc: Room: [address] [place] [address] Type : ADM IN Attending Dr: Julian [...] signed by Julian Arechiga MD> 08/30/23 1121 [facility] Work Phone: 1(640) 742-156904-05-2024 Progress note Author Julian Arechiga [facility] August 29, 2023 12:33pm Note Date/Time August 29, 2023 12:2 7pm [facility] [address] [place] [address] Psychiatry Progress Note Signed Patient: Maegan Dye MR#: [id number] 9 : 1950 Acct:[id number] Age/Sex: 73 / F Adm Date: 4 Loc: Room: [address] [place] [address] Type : ADM IN Attending Dr: Julian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 Attending Dr: Merary [...] <Electronically signed by Julian Arechiga MD> 06/02/221138 [facility] Work Phone: 1(817) 551-681501-08-2023 Progress note Author Chrisetlle Faith [facility] June 02, 2022 10:49am Note Date/Time June 02, 2022 9: 32am [facility] [address] [place] [address] Progress Note Signed Patient: Maegan Dye MR#: [id number] 9 : 1950 Acct:[id number] Age/Sex: 72 / F Adm Date: 2 Loc: Room: [address] [place] [address] Type: ADM IN Attending Dr: Merary De [...] here. We will needto alternatively dose her. [facility] staff is given order to contact their office again 06/03 to determine dosing delivered via pump so that we can alternately dose. Also she would benefit from establishment of local pain management physician on discharge as she misses appointments having to travel to [place] every [address] Nora Mccallum/ pain management [phone] Documented By: NENA Barton 3 [id number] Signed By: <Electronically signed by NENA Faith> 06/02/22 1045 [facility] Work Phone: 1(862) 787-641801-07-2023 Progress note Author Julian Arechiga [facility] June 01, 2022 12:06pm Note Date/Time June 01, 2022 12 :06pm [facility] [address] [place] [address] Psychiatry Progress Note Signed Patient: Maegan Dye MR#: [id number] 9 : 1950 Acct:[id number] Age/Sex: 72 / F Adm Date: 2 Loc: 1S Room: [address] [place] [address] Type : ADM IN Attending Dr: Merary [...] signed by Julian Arechiga MD> 06/01/22 1206 [facility] Work Phone: 1(931) 348-649101-06-2023 Progress note Author Rogelio casanova [facility] May 31, 2022 9:14am Note Date/Time May 31, 2022 9: 14am [facility] [address] [place] [address] Psychiatry Progress Note Signed Patient: Maegan Dye MR#: [id number] 9 : 1950 Acct:[id number] Age/Sex: 72 / F Adm Date: 2 Loc: Room: [address] [place] [address] Type : ADM IN Attending Dr: Merary [...] signed by Rogelio De MD> 05/31/22 0914 [facility] Work Phone: 1(184) 545-464301-05-2023 Progress note Author Rogelio casanova [facility] May 30, 2022 6:55am Note Date/Time May 30, 2022 6: 53am [facility] [address] [place] [address] Psychiatry Progress Note Signed Patient: Maegan Dye MR#: [id number] 9 : 1950 Acct:[id number] Age/Sex: 72 / F Adm Date: 2 Loc: Room: [address] [place] [address] Type : ADM IN Attending Dr: Merary [...] 128/80 94 L Room Air 05/29/22 20:00 01/04/23 20:00 05/29/22 20:00 05/29/22 20:00 05/29/22 20:00 [...] signed by Rogelio De MD> 05/30/22 0655 [facility] Work Phone: 1([phone]) 401-194401-04-2023 Progress note Author Rogelio casanova [facility] May 29, 2022 1:13pm Note Date/Time May 29, 2022 12 :56pm [facility] [address] [place] [address] Psychiatry Progress Note Signed Patient: Maegan Dye MR#: [id number] 9 : 1950 Acct:[id number] Age/Sex: 72 / F Adm Date: 2 Loc: Room: [address] [place] [address] Type : ADM IN Attending Dr: Merary [...] signed by Rogelio De MD> 05/29/22 1313 [facility] Work Phone: 1(416) 494-700401-03-2023 Hospital Discharge instructions Additional Instructions Hcoi catheter inserted 05/28/22. Reason:Urinary Retention Regular diet Activity as tolerated Boost Plus TID Mental health will be managed by rounding physicians at [facility] Work Phone: 1(785) 649-797701-03-2023 Progress note Author Rogelio casanova [facility] May 28, 2022 8:21am Note Date/Time May 28, 2022 8: 19am [facility] [address] [place] [address] Psychiatry Progress Note Signed Patient: Maegan Dye MR#: [id number] 9 : 1950 Acct:[id number] Age/Sex: 72 / F Adm Date: 2 Loc: Room: [address] [place] [address] Type : ADM IN Attending Dr: Merary [...] is Zero. Documented By: Rogelio De MD 817 Signed By: <Electronically signed by Rogelio De MD> 05/28/22820 [facility] Work Phone: 1(238) 817-944001-02-2023 Progress note Author Christelle Faith [facility] May 27, 2022 6:45pm Note Date/Time May 27, 2022 6: 00pm [facility] [address] [place] [address] Hospitalist Progress Note Signed Patient: Maegan Dye MR#: [id number] 9 : 1950 Acct:[id number] Age/Sex: 72 / F Adm Date: 2 Loc: 1S Room: [address] [place] [address] Type: ADM IN Attending Dr: Merary De [...] morphine pump managed by pain specialist in [facility]. Patient reports running empty and she [...] spray 05/26/22 09:00 05/27/22 09:15 Fluticasone Propionate [place] 120 [place]/16 Gm Bottle INTRANASAL 05/26/23 08:59 2 spray [...] use Chronic Pain -Morphine pump, follows with [facility] pain management Dr Nora Mccallum. Nursingto contact [...] and psychotherapy Documented By: NENA Barton 3 [id number] Signed By: <Electronically signed by NENA Faith> 05/27/22 1841 [facility] Work Phone: 1(562) 592-428801-02-2023 Progress note Author Rogelio casanova [facility] May 27, 2022 12:55pm Note Date/Time May 27, 2022 10 :18am [facility] [address] [place] [address] Psychiatry Progress Note Signed with Joselin Patient: Maegan Dye MR#: [id number] 9 : 1950 Acct:[id number] Age/Sex: 72 / F Adm Date: 2 Loc: Room: [address] [place] [address] Type : ADM IN Attending Dr: Merary [...] signed by MD REED Morrison> 05/27/22 1137 [facility] Work Phone: 1([phone]) [phone] History and physical note Author Rogelio casanova [facility] May 26, 2022 9:13am Note Date/Time May 26, 2022 9: 07am [facility] [address] [place] [address] Psychiatry H&P Signed Patient: Maegan Dye MR#: [id number] 9 : 1950 Acct:[id number] Age/Sex: 72 / F Adm Date: 2 Loc: 1S Room: [id number] Type: ADM IN Attending Dr: Merary De [...] Appearance Clear Urine pH 5.5 Ur Specific [place] 1.018 Urine Protein 30 H Urine Glucose [...] signed by Rogelio De MD> 05/26/22 0913 [facility] Work Phone: 1(847) 743-398712-31-2022 Consult note Author Rome Luciano [facility] May 25, 2022 7:42pm Note Date/Time May 25, 2022 7:33pm [facility] [address] [place] [address] Hospitalist Consult Note Signed Patient: Maegan Dye MR#: [id number] 9 : 1950 Acct:[id number] Age/Sex: 72 / F Adm Date: 2 Loc: Room: [address] [place] [address] Type: ADM IN Attending Dr: Merary De MD Copies to: MD Tomas De León DO Obaydah M Daromar, MD~ HPI DATE OF CONSULTATION: 05/25/22 REQUESTING PROVIDER: Mearry De Consult Narrative Reason for Consult: Confusion, pain management for right ankle fracture HPI: Patient is a 72-year-old female with past medical history of hypertension, anxiety and depression disorder, SIADH, COPD, GERD, CKD, neurogenic bladder requiring intermittent self-catheterization, history of UTIs and multiple fractures was transferred to our facility from [facility] for inpatient psychiatry service. Hospitalist service [...] in the past. Documents were reviewed from [facility]. Patient had CBC there with WBC of [...] H 16 148/78 H 95 Room Air 12/31/22 17:30 05/25/22 17:30 05/25/22 17:30 05/25/22 17:30 [...] -Afebrile, no leukocytosis according to labs at [facility] -Repeat CBC, CMP and UA here [...] Documented By: Rome Luciano MD 05/25/22 19 21 Signed By: <Electronically signed by Rome Luciano MD> 05/25/221941 [facility] Work Phone: 1(158) [phone] Evaluation + Plan noteExtracted from: Title:ED Note Author:Santiago Harrington DO. Date :05/24/22 Hallucinations (R44.3: Hallu cinations, unspecified) Orders: Automated Diff CBC w/ Auto Diff Communication Order Comprehensive Metabolic Panel Consult to Mental Health Drug Screen Urine ECG 12 Lead Adult eGFR Ethanol Level Extra Blue Tube Extra SST Tube Rapid COVID Antigen ([facility] [place] Transfer Patient UA With Cult Reflex Future Appointments Appointment Date:05/28/2022 01:00:00 PM Scheduled Provider:Tomas GARCIA DO Location:[facility] Appointment Type: Open Future Scheduled Tests Laboratory* TIBC Calculated 08/06/21 * Sodium Level 12/20/21 * Basic Metabolic Panel 04/25/22 * Ferritin 08/06/21 * Folate Level 08/06/21 * Hemoglobin 12/20/21 * Iron Level 08/06/21 * Lipase Level 08/06/21 * Vitamin B12 Level 08/06/21 Radiology* XR Foot 3+ Views Right 07/25/21 [facility]12-09-2022 Hospital Discharge instructions Patient Education 05/03/2022 12:30:57 [...] Follow these instructions at home: Medicines Take bzjx-igo-ychwnuv and prescription medicines only as told by your health care provider. Ask your health care provider if the medicine prescribed to you: ?Requires you to avoid driving or using heavy machinery. ?Can cause constipation. You may need to take these actions to prevent or treat constipation: ?Drink enough fluid to keep your urine pale yellow. ?Take vtlk-ldy-xkyhizb or prescription medicines. ?Eat foods that are [...] 05/06/2002 Document Revised: 05/31/2019 Document Reviewed: 05/31/2019 [employer] Patient Education 2020 [employer]. Follow Up Care 05/03/2022 11:40:28 With:Tomas GARCIA Address: [address] [place] [address]- Business (1) When:05/06/2022 12:09:30 [facility]12-01-2022 Evaluation + Plan note Future Scheduled Tests Laboratory* Basic Metabolic Panel 04/25/22 [facility]12-01-2022 Hospital Discharge instructions Follow Up Care 04/25/2022 07:59:39 With:Tomas GARCIA DO, FAM Address: [address] [place] [address]- When:Within 3 Month(s) [facility] 11-30-2022 NoteHNO ID: [id number] Author: Ike Cervantes APRN.UNIFORM DESIGNER Service: ? Author Type: Nurse Specialist Type: Progress Notes Filed: 04/26/2022 1:09 PM Note Text: [facility] NOTE NAME: KAYLYNNSILASCAS NO.: [id number] DATE OF SERVICE: 04/24/2022 [facility] DATE OF : 1950 REASON FOR VISIT: The patient is a resident of [facility]. This is a skilled visit for [...] that I just signed a prescription for [place]. The patient states Whitewood does nothing for her. I did express [...] care physician. DICTATED BY: KYA Bunn JOB# [id number] cc:[facility]11-30-2022 History of Present illness Narrative* Ike CervantesSVITLANA.UNIFORM DESIGNER - 04/24/2022 12:00 AM EST [facility] NOTE NAME: CAS DYE NO.: [id number] DATE OF SERVICE: 04/24/2022 [facility] DATE OF : 1950 REASON FOR VISIT: The patient is a resident of [facility]. This is a skilled visit for [...] that I just signed a prescription for Whitewood. The patientstates Whitewood does nothing for her. I did express [...] care physician. DICTATED BY: KYA Bunn JOB# [id number] cc:[facility] documented [facility] NoteHNO ID: [id number] Author: Matthew Gavin Service: ? Author Type: Physician Type: Progress Notes Filed: 04/24/2022 6:09 PM Note Text: [facility] NOTE NAME: CAS DYE NO.: [id number] DATE OF SERVICE: 04/22/2022 [facility] DATE OF : 1950 New Patient History and Physical HISTORY OF PRESENT ILLNESS: The patient is a 72-year-old female who is admitted to us from [facility] with a diagnosis of acute [...] of morphine. She is followed by pain field care coordinator in [place]. Her condition stabilized and improved and she [...] is followed by her pain specialist in [place]. She does have a morphine pump, but [...] In the meantime she is receiving p.r.n. Whitewood. 3. Questionable history of urinary retention - she is indicating that she had a chronic (more content not included)...[facility] 04-22-2022 History of Present illness Narrative* Matthew Gavin - 04/22/2022 12:00 AM EST [facility] NOTE NAME: CAS DYE NO.: [id number] DATE OF SERVICE: 04/22/2022 [facility] DATE OF : 1950 New Patient History and Physical HISTORY OF PRESENT ILLNESS: The patient is a 72-year-old female who is admitted to us from [facility] with a diagnosis of acute [...] of morphine. She is followed by pain field care coordinator in [place]. Her condition stabilized and improved and she [...] is followed by her pain specialist in [place]. She does have a morphine pump, but [...] In the meantime she is receiving p.r.n. [place]. 3. Questionable history of urinary retention - [...] closely. DICTATED BY: MD SHREE Lim/Gwen JOB# [id number] cc:[facility] documented in this encounterProm[facility]11-25-2022 Evaluation + Plan note Extracted from: Title:Discharge Note Author:DREW AGACNP-BC, Re nee Date:04/19/22 Hemodynamically stable condi tion Discharge To, Anticipated II - Penitentiary Unit Discharged to - Home with family care Discharge Status: Improved Discharge Instructions Given: To patient Discharge disposition: Home Prescriptions reviewed with Patient 47 minutes spent in discharge time with patient, cna, collaborating MD, nursing staff, [facility] Discharge Diet(s): Regular, Fat Modified- Low cholesterol, [...] tab(s), Oral, TID fluticasone 0.05 mg/inh Nasal [place], 2 spray(s), Nasal, Daily, 5 refills potassium [...] With When Contact Information Pain Clinic: [facility] [phone] Additional Instructions: Call for followup appointment - to have pain pump filled Tomas GARCIA Within 2 to 4 days [address] [place] [address]- [place] (1) Additional Instructions: Hyponatremia, Wvqm-sr-Vfnm Extracted from: Title:APSO Note Author:Jeanette RAMOS, Abeer Date:06/18/21 Hyponatremia - Acute on chronic baseline around 130, non compliance with home meds, Na 125 on admission Na level up to 129 today am -Fluid restrict to 1.5 L /day , discussed over the phone with cna yesterday -Check osmol urine and blood, check urine Na Na level Q4-6 hrs -Consult nephrology software design manager consult for placement / PT / [...] Ordered: Initial Hospital Care/Day Moderate [id number] Status Sodium Level 2. Chronic [...] EST fluticasone nasal, 0.1 mg, 2 spray(s), [place], Nasal, Daily, Routine, Start date 04/18/22 9:00:00 [...] to ensure accuracy , however, inadvertently computerized fisheries director mistakes may be present . Extracted from: Title:Admission H & P Author:Jeanette RAMOS, Abeer Date:04/17/22 Hyponatremia - Acute on chronic baseline around 130, non compliance with home meds -Fluid restrict to 1.5 L /day , discussed over the phone with Dr. Orozco -Check osmol urine and blood, check urine Na Na level Q4 -Consult nephrology: software design manager consult for placement / PT / [...] EST fluticasone nasal, 0.1 mg, 2 spray(s), [place], Nasal, Daily, Routine, Start date 04/18/22 9:00:00 [...] to ensure accuracy , however, inadvertently computerized fisheries director mistakes may be present . Extracted from: [...] Date:04/29/2022 11:40:00 AM Scheduled Provider:Tomas GARCIA DO Location:[facility] Appointment Type: Open Diagnostic Tests Pending * Cortisol 04/18/22 Future Scheduled Tests Laboratory* TIBC Calculated 08/06/21 * Sodium Level 12/20/21 * Ferritin 08/06/21 * Folate Level 08/06/21 * Hemoglobin 12/20/21 * Iron Level 08/06/21 * Lipase Level 08/06/21 * Vitamin B12 Level 08/06/21 Radiology* XR Foot 3+ Views Right 07/25/21 [facility]11-25-2022 Hospital Discharge instructions Patient Education 04/19/2022 11:47:10 Hyponatremia, Nodg-kv-Hczs Hyponatremia Hyponatremia is when the amount of [...] symptoms. Follow these instructions at home: Take svfm-kpu-omrajli and prescription medicines only as told by [...] 01/22/2012 Document Revised: 07/29/2019 Document Reviewed: 04/15/2019 [employer] Patient Education 2020 [employer]. Follow Up Care 04/17/2022 10:15:25 With:Pain Clinic: [facility] [phone] Address:Unknown When: Unknown Comments:Call for followup appointment - to have pain pump filled With:Tomas GARCIA Address: [address] [place], [place] [phone] Business (1) When:2 to 4 days [facility]11-16-2022 Evaluation + Plan noteExtracted from: Title:ED Note Author:Vic BYRD, Malick Bray te:04/10/22 1. Dysuria (R30.0: Dysuria) Orders: diazepam, 5 mg = 1 tab(s), Tab, Oral, Once, Stop date 04/10/22 17:47:00 EST, STAT, Start date 04/10/22 17:47:00 EST, 04/10/22 17:47:00 EST UA With Cult Reflex Future Appointments Appointment Date:04/29/2022 11:40:00 AM Scheduled Provider:Tomas GARCIA DO Location:[facility] Appointment Type: Open Future Scheduled Tests Laboratory* TIBC Calculated 08/06/21 * Sodium Level 12/20/21 * Ferritin 08/06/21 * Folate Level 08/06/21 * Hemoglobin 12/20/21 * Iron Level 08/06/21 * Lipase Level 08/06/21 * Vitamin B12 Level 08/06/21 Radiology* XR Foot 3+ Views Right 07/25/21 [facility]11-07-2022 Miscellaneous Notes* Telephone Encounter - Adriane Fischer LPN - 04/01/2022 1:51 PM EST Patient was transferred to this senior writer, screaming in the telephone saying that she needs more catheters. She stated in a previous phone call that the last batch of catheters were stolen out of her car. Reached out to [address] [place] [address] to see what needs to take place for catheters to be delivered to patientat this time. Patients son will be coming to [facility] to merchandise pickup/receiving associate sample catheters, until patient receives hers again. [...] transferred to UROL nurse. documented in this encounterProm[facility]11-03-2022 Evaluation + Plan note Diagnostic Tests Pending * Urine Culture 03/28/22 Future Scheduled Tests Laboratory* TIBC Calculated 08/06/21 * Sodium Level 12/20/21 * Ferritin 08/06/21 * Folate Level 08/06/21 * Hemoglobin 12/20/21 * Iron Level 08/06/21 * Lipase Level 08/06/21 * Vitamin B12 Level 08/06/21 Radiology* XR Foot 3+ Views Right 07/25/21 [facility]10-10-2022 Hospital Discharge instructions Patient Education 03/04/2022 13:54:50 [...] 01/22/2005 Document Revised: 11/10/2018 Document Reviewed: 05/13/2017 [employer] Patient Education 2020 [employer]. 03/04/2022 13:54:46 Urinary Tract Infection, Adult Urinary [...] Treatment for this condition includes: Antibiotic medicine. Fibg-xsu-mvrshge medicines to treat discomfort. Drinking enough water [...] Follow these instructions at home: Medicines Take mlqx-fit-lchxpxl and prescription medicines only as told by [...] 02/19/2006 Document Revised: 04/29/2019 Document Reviewed: 11/19/2018 [employer] Patient Education 2020 [employer]. Follow Up Care 03/04/2022 12:12:59 With:Tomas GARCIA DO, FAM Address: [address] [place], [place] [address]- When: Unknown [facility] 10-10-2022 Evaluation + Plan note Diagnostic Tests Pending * Urine Culture 03/04/22 Future Scheduled Tests Laboratory* TIBC Calculated 08/06/21 * Sodium Level 12/20/21 * Basic Metabolic Panel 03/27/21 * Ferritin 08/06/21 * Folate Level 08/06/21 * Hemoglobin 12/20/21 * Iron Level 08/06/21 * Lipase Level 08/06/21 * Vitamin B12 Level 08/06/21 Radiology* XR Foot 3+ Views Right 07/25/21 [facility]09-26-2022 Hospital Discharge instructions Patient Education 02/17/2022 22:48:16 Accidental Drug Poisoning, Adult Accidental Drug Poisoning, Adult Accidental drug poisoning happens when a person accidentally takes too much of a substance, such asa prescription medicine, an ytdn-tnp-thdalxs medicine, a vitamin, a supplement, or an [...] medicines. Cocaine. Heroin. Multivitamins that contain iron. Cytf-maw-wkbqqug cold and cough medicines. What increases the [...] Follow these instructions at home: Medicines Take kgnr-zug-gcfyvzy and prescription medicines only as told by your health care provider. Before taking a new medicine, ask your health care provider whether the medicine: ?May cause side effects. ?Might react with other medicines. Keep a list of all the medicines that you take, including swmq-zeq-mldxcui medicines, vitamins, supplements, and herbs. Bring this [...] your cell phone. The hotline of the [place] [employer] Poison Control Centers is . [...] a substance, such asa prescription medicine, an bxyi-kbu-yfyfevl medicine, a vitamin, a supplement, or an [...] 07/26/2005 Document Revised: 04/24/2018 Document Reviewed: 04/13/2018 [employer] Patient Education 2020 [employer]. Follow Up Care 02/17/2022 16:00:07 With:Tomas JOSE Address: [address] [address]- Business (1) When:02/20/2022 Comments:Follow-up with your primary care doctor next 2 to 3 days for further evaluation management. [facility]09-25-2022 Evaluation + Plan noteExtracted from: Title:ED Note [...] Date:03/04/2022 11:20:00 AM Scheduled Provider:Tomas GARCIA DO Location:[facility] Appointment Type: Open Future Scheduled Tests Laboratory* TIBC Calculated 08/06/21 * Sodium Level 12/20/21 * Basic Metabolic Panel 03/27/21 * Ferritin 08/06/21 * Folate Level 08/06/21 * Hemoglobin 12/20/21 * Iron Level 08/06/21 * Lipase Level 08/06/21 * Vitamin B12 Level 08/06/21 Radiology* XR Foot 3+ Views Right 07/25/21 [facility]09-23-2022 Hospital Discharge instructions Patient Education 02/15/2022 15:45:16 [...] care provider. Avoid caffeine, alcohol, and certain kbsd-bvt-rasrawl cold medicines. These may make you feel worse. Ask your pharmacist which medicines to avoid. General instructions Take hpuv-gvz-roialjc and prescription medicines only as told by [...] Depression Association of [place] (ADAA): www.adaa.org National [place] on Mental Illness (MARY): www.mary.org Contact a [...] 05/06/2017 Document Revised: 10/12/2019 Document Reviewed: 10/12/2019 [employer] Patient Education 2020 [employer]. Follow Up Care 02/15/2022 15:00:41 With:Tomas GARCIA Address: [address] [place], [place] [address]- Business (1) When:02/18/2022 15:37:53 [facility]09-23-2022 Evaluation + Plan noteExtracted from: Title:ED Note Author:Malick Ho PA-C te:02/15/22 Anxiety (F41.9: Anxiety diso rder, unspecified) Orders: diazepam, 10 mg = 2 tab(s), Tab, Oral, Once, Stop date 02/15/22 15:06:00 EDT, STAT, Start date 02/15/22 15:06:00 EDT, 02/15/22 15:06:00 EDT Future Appointments Appointment Date:03/04/2022 11:20:00 AM Scheduled Provider:Tomas GARCIA DO Location:[facility] Appointment Type: Open Future Scheduled Tests Laboratory* TIBC Calculated 08/06/21 * Sodium Level 12/20/21 * Basic Metabolic Panel 03/27/21 * Ferritin 08/06/21 * Folate Level 08/06/21 * Hemoglobin 12/20/21 * Iron Level 08/06/21 * Lipase Level 08/06/21 * Vitamin B12 Level 08/06/21 Radiology* XR Foot 3+ Views Right 07/25/21 [facility]09-21-2022 Hospital Discharge instructions Patient Education 02/13/2022 12:34:18 [...] at pharmacies and retail stores. Eat bland, ckdw-xd-luthzc foods in small amounts as you are [...] and water are not available, use hand pile driver engineer. Make sure that everyone in your household washes their hands frequently. Take vcmt-clf-obcnkyo and prescription medicines only as told by [...] and water are not available, use hand pile driver engineer. Make sure that everyone in your [...] 06/07/2016 Document Revised: 10/29/2019 Document Reviewed: 10/20/2018 [employer] Patient Education 2020 [employer]. 02/13/2022 12:34:18 Dysuria Dysuria Dysuria is pain [...] alcohol may irritate the prostate. Medicines Take trjk-imm-bfxnfuy and prescription medicines only as told by [...] 02/07/2005 Document Revised: 04/24/2018 Document Reviewed: 02/26/2018 [employer] Patient Education 2020 [employer]. Follow Up Care 02/13/2022 11:41:36 With:Tomas GARCIA Address: [address] [place], [place] [id number]- Business (1) When:02/16/2022 12:33:36 Comments:Call the office [...] weakness, or any new or worsening symptoms. [facility]09-21-2022 Evaluation + Plan noteExtracted from: Title:ED Note Author:Johny Willson DO Date: Dysuria (R30.0: Dysuria) Orders: ondansetron, 4 mg = 1 tab(s), Tab-Dis, Oral, Once, Stop date 02/13/22 11:46:00 EDT, STAT, Start date 02/13/22 11:46:00 EDT, 02/13/22 11:46:00 EDT phenazopyridine, 200 mg = 1 tab(s), Oral, TID, X 3 day(s), # 9 tab(s), Refills(s) 0, Pharmacy: [facility]/pharmacy #[id number], 154.9, cm, 02/13/22 11:50:00 EDT, Height/Length Dosing, 57.6, kg, 02/13/22 11:50:00 EDT, Weight Dosing UA With Cult Reflex Future Appointments Appointment Date:02/14/2022 02:40:00 PM Scheduled Provider:Tomas GARCIA DO Location:[facility] Appointment Type: Open Future Scheduled Tests Laboratory* TIBC Calculated 08/06/21 * Sodium Level 12/20/21 * Basic Metabolic Panel 03/27/21 * Ferritin 08/06/21 * Folate Level 08/06/21 * Hemoglobin 12/20/21 * Iron Level 08/06/21 * Lipase Level 08/06/21 * Vitamin B12 Level 08/06/21 Radiology* XR Foot 3+ Views Right 07/25/21 [facility]09-20-2022 Miscellaneous Notes* Telephone Encounter - Adriane Fischer LPN - 02/12/2022 11:40 AM EDT Rep from [address] [place] [address] stated that she will reach out to the patient and get her sent catheters at this time. No further action is required at this time. * Telephone Encounter - Anabelle Vasquez RN - 02/11/2022 4:53 PM EDT Spoke to patient. She will contact [address] [place] [address], [employer] flyer with the number on it to call if she hasn't been contacted. We reached out to rep from [address] [place] [address]. Told patient she can come into office for more catheters. Her son is not able to come in for her toget them. Will touch base with patient tomorrow. Anabelle Vasquez R.N. * Telephone Encounter - Sergio Guevara RN - 02/11/2022 4:28 PM EDT Patient calling States she needs more Self Catheters Gets them from [phone] (?) States she used all of the Self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 Education 2020 [employer]. 10/27/2021 11:22:48 Hyponatremia Hyponatremia Hyponatremia is when [...] improvement. Follow these instructions at home: Take gywh-ljr-wxipuzl and prescription medicines only as told by [...] 05/02/2003 Document Revised: 03/26/2019 Document Reviewed: 03/26/2019 [employer] Patient Education 2020 [employer]. 10/27/2021 11:22:48 Nausea and Vomiting, Adult Nausea [...] water added (diluted fruit juice). Eat bland, yilz-cu-mllcrl foods in small amounts as you are able. These foods include bananas, applesauce, rice, lean meats, toast, and crackers. Avoid fluids that contain a lot of sugar or caffeine, such as energy drinks, sports drinks, and soda. Avoid alcohol. Avoid spicy or fatty foods. General instructions Take gdtl-xmt-guendtr and prescription medicines only as told by your health care provider. Drink enough fluid to keep your urine pale yellow. Wash your hands often using soap and water. If soap and water are not available, use hand pile driver engineer. Make sure that all people in [...] eating and drinking to prevent dehydration. Take qgpk-wwb-zknxljw and prescription medicines only as told by [...] 05/12/2006 Document Revised: 09/03/2019 Document Reviewed: 10/20/2018 [employer] Patient Education 2020 [employer]. Follow Up Care 10/27/2021 09:47:43 With:Tomas GARCIA Address: [address] [place], [place] [phone]- [facility] (1) When:10/30/2021 11:22:01 Comments:Call the office of [...] weakness, or any new or worsening symptoms. [facility]06-01-2022 Hospital Discharge instructions Patient Education 10/23/2021 22:11:06 Nonspecific Chest Pain, Adult, Ldre-ez-Ljyi Nonspecific Chest Pain Chest pain can be [...] Follow these instructions at home: Medicines Take udwr-ukt-yxnvfdu and prescription medicines only as told by [...] ?Eating a heart-healthy diet. A diet and community service specialist (dietitian) can help you to learn [...] 10/28/2008 Document Revised: 11/12/2018 Document Reviewed: 11/12/2018 [employer] Patient Education 2020 [employer]. 10/23/2021 22:11:06 Pain Without a Known Cause [...] home: Managing pain, stiffness, and swelling Take uyic-nrq-slnsurm and prescription medicines only as told by [...] as fried and sweet foods. ?Take an bnlx-ioi-byjzfiq or prescription medicine for constipation. Contact a [...] 02/04/2002 Document Revised: 07/08/2019 Document Reviewed: 06/01/2018 [employer] Patient Education 2020 [employer] 10/23/2021 22:11:06 Urinary Tract Infection, Adult, Nbzj-xd-Vfeg Urinary Tract Infection, Adult A urinary tract [...] Follow these instructions at home: Medicines Take mapk-gzl-vewiqki and prescription medicines only as told by [...] 10/28/2008 Document Revised: 04/29/2019 Document Reviewed: 11/19/2018 [employer] Patient Education [employer]. Follow Up Care 10/23/2021 19:05:02 With:Tomas GARCIA Address: [address] [place], [place] [phone] Business (1) When:10/26/2021 21:11:07 Comments:Follow-up with your primary care provider. If symptoms worsen, do not improve, new symptoms arise please report back to emergency room for further evaluation. [facility]05-31-2022 Evaluation + Plan noteExtracted from: Title:ED Note [...] Radiology* XR Foot 3+ Views Right 07/25/21 [facility]05-31-2022 Evaluation + Plan noteExtracted from: Title:ED Note [...] Radiology* XR Foot 3+ Views Right 07/25/21 [facility]05-31-2022 Hospital Discharge instructions Patient Education 10/23/2021 02:20:54 Dehydration, Adult, Zrej-lz-Mwnq Dehydration, Adult Dehydration is when there is [...] a lot of fat or sugar. Take mkbu-wzo-hyvabml and prescription medicines only as told by [...] 03/08/2010 Document Revised: 04/24/2018 Document Reviewed: 07/05/2016 [employer] Patient Education 2020 [employer]. Follow Up Care 10/22/2021 23:25:59 With:Tomas GARCIA Address: [address] [place] [phone]- Business (1) When:10/26/2021 Comments:Please continue to drink plenty of fluids, follow-up with your primary care doctor next 2 to 3 daysfor further evaluation management. Please return to the ED for any new or worsening symptoms. [facility]05-29-2022 Miscellaneous Notes* Telephone Encounter - Anju Mina [...] TRACT INFECTION ON ANTIBIOTIC FOLLOW-UP CALL - [id number] documented in this encounterProm[facility] Evaluation + Plan note Extracted from: Title:ED Note Author:Chandan Adhikari DO Date:09/24 01/14 UTI (urinary tract infection ) (N39.0: Urinary tract infection, site not specified) Orders: nitrofurantoin, 100 mg = 1 cap(s), Oral, BID, X 7 day(s), # 14 cap(s), Refills(s) 0, Pharmacy: [facility]/pharmacy #[id number], 165, cm, 10/20/21 7:35:00 EDT, Height/Length Dosing, 63, kg, 10/20/21 7:35:00 EDT, Weight Dosing phenazopyridine, 200 mg = 1 tab(s), Oral, TID, Take one tab by mouth three times a day for three days, # 9 tab(s), Refills(s) 0, Pharmacy: [facility]/pharmacy #[id number], 165, cm, 10/20/21 7:35:00 EDT, Height/Length [...] Radiology* XR Foot 3+ Views Right 07/25/21 [facility]05-28-2022 Hospital Discharge instructions Patient Education 10/20/2021 08:29:37 [...] Treatment for this condition includes: Antibiotic medicine. Eifr-gnt-gvmbmaf medicines to treat discomfort. Drinking enough water [...] Follow these instructions at home: Medicines Take jxqw-bsn-kcoyloo and prescription medicines only as told by [...] 02/19/2006 Document Revised: 04/29/2019 Document Reviewed: 11/19/2018 [employer] Patient Education 2020 [employer]. Follow Up Care 10/20/2021 07:19:50 With:Your Urologist Address:Unknown When:10/23/2021 08:09:49 With:Tomas GARCIA Address: [address] [phone]- Business (1) When:Within 3 Day(s) [facility]05-22-2022 Hospital Discharge instructions Patient Education 10/14/2021 11:46:23 Acute Urinary Retention, Female, Jnks-lx-Fmvh Acute Urinary Retention, Female Acute urinary retention means that you cannot pee (urinate) at all, or that you pee too little and your bladder is not emptied completely. If it is not treated, it can lead to kidney damage or other serious problems. Follow these instructions at home: Take rfds-fry-nodpqkt and prescription medicines only as told by [...] 10/28/2008 Document Revised: 04/24/2018 Document Reviewed: 06/13/2017 [employer] Patient Education 2020 [employer]. Follow Up Care 10/14/2021 10:24:31 With:Tomas GARCIA Address: [address] [place], [place] [phone] Business (1) When:10/17/2021 11:31:26 Comments:Follow-up with your primary care provider in 3 days. If symptoms worsen, do not improve, or new symptoms arise please report back to emergency department immediately. [facility]05-20-2022 Hospital Discharge instructions Patient Education 10/12/2021 21:17:35 [...] 11/25/2011 Document Revised: 05/05/2019 Document Reviewed: 05/05/2019 [employer] Patient Education 2020 [employer]. Follow Up Care 10/12/2021 20:40:40 With:GISELA RAMOS, Tomas Chakraborty, URL Address: [address] [place] [address]- When:2 to 4 days With:Tomas GARCIA DO, [facility] Address: [address] [place] [phone]- When:10/15/2021 [facility]05-16-2022 Evaluation + Plan note Diagnostic Tests Pending * Urine Culture 10/08/21 Future Scheduled Tests Laboratory* TIBC Calculated 08/06/21 * Basic Metabolic Panel 03/27/21 * Ferritin 08/06/21 * Folate Level 08/06/21 * Iron Level 08/06/21 * Lipase Level 08/06/21 * Vitamin B12 Level 08/06/21 Radiology* XR Foot 3+ Views Right 07/25/21 [facility]05-12-2022 Hospital Discharge instructions Patient Education 10/04/2021 00:51:33 [...] on each side. Do this in a sgufx-le-tlvz direction. ?If you are male: ?Use one [...] Clean the drainage bag according to the labor specialist's instructions or as told byyour health care [...] and water are not available, use hand pile driver engineer. Always make sure there are no [...] 05/12/2006 Document Revised: 09/03/2019 Document Reviewed: 12/26/2017 [employer] Patient Education 2020 [employer]. 10/04/2021 00:51:33 Acute Urinary Retention, Female, Tqti-uo-Hpfy Acute Urinary Retention, Female Acute urinary retention means that you cannot pee (urinate) at all, or that you pee too little and your bladder is not emptied completely. If it is not treated, it can lead to kidney damage or other serious problems. Follow these instructions at home: Take eimf-psu-auiqiid and prescription medicines only as told by [...] 10/28/2008 Document Revised: 04/24/2018 Document Reviewed: 06/13/2017 [employer] Patient Education 2020 [employer]. Follow Up Care 10/03/2021 21:50:18 With:Tomas GARCIA Address: [address] [place] [address]- [employer] (1) When:10/06/2021 Comments:Please follow-up with your urologist for further evaluation and management. [facility]05-11-2022 Evaluation + Plan noteExtracted from: Title:ED Note Author:Mati Taylor DO Date :10/03/21 Urinary retention (R33.9: Re tention of urine, unspecified) Orders: Urinary Catheter Insertion Future Scheduled Tests Laboratory* TIBC Calculated 08/06/21 * Basic Metabolic Panel 03/27/21 * Ferritin 08/06/21 * Folate Level 08/06/21 * Iron Level 08/06/21 * Lipase Level 08/06/21 * Vitamin B12 Level 08/06/21 Radiology* XR Foot 3+ Views Right 07/25/21 [facility]05-09-2022 Hospital Discharge instructions Patient Education 10/01/2021 19:38:21 [...] 11/25/2011 Document Revised: 05/05/2019 Document Reviewed: 05/05/2019 [employer] Patient Education 2020 [employer]. Follow Up Care 10/01/2021 18:06:52 With:GISELA RAMOS, Tomas Chakraborty, URL Address: [facility] [address] [address]- When:2 to 4 days [facility]05-09-2022 Hospital Discharge instructions Patient Education 09/30/2021 22:10:24 Acute Urinary Retention, Female, Gsqr-qf-Wfzl Acute Urinary Retention, Female Acute urinary retention means that you cannot pee (urinate) at all, or that you pee too little and your bladder is not emptied completely. If it is not treated, it can lead to kidney damage or other serious problems. Follow these instructions at home: Take wljg-miv-sfieinp and prescription medicines only as told by [...] 10/28/2008 Document Revised: 04/24/2018 Document Reviewed: 06/13/2017 [employer] Patient Education [employer] Follow Up Care 09/30/2021 21:04:21 With:GISELA RAMOS, Tomas Chakraborty, URL Address: [address] [place], [place] [phone]- When:2 to 4 days Comments:Keep scheduled appointment [facility]05-04-2022 Evaluation + Plan note Diagnostic Tests Pending * Urine Culture 09/26/21 Future Scheduled Tests Laboratory* TIBC Calculated 08/06/21 * Basic Metabolic Panel 03/27/21 * Ferritin 08/06/21 * Folate Level 08/06/21 * Iron Level 08/06/21 * Lipase Level 08/06/21 * Vitamin B12 Level 08/06/21 Radiology* XR Foot 3+ Views Right 07/25/21 [facility]04-25-2022 Evaluation + Plan note Diagnostic Tests Pending * Urine Culture 09/17/21 Future Scheduled Tests Laboratory* TIBC Calculated 08/06/21 * Basic Metabolic Panel 03/27/21 * Ferritin 08/06/21 * Folate Level 08/06/21 * Iron Level 08/06/21 * Lipase Level 08/06/21 * Vitamin B12 Level 08/06/21 Radiology* XR Foot 3+ Views Right 07/25/21 [facility]04-25-2022 Hospital Discharge instructions Patient Education 09/17/2021 11:46:36 Acute Urinary Retention, Female, Kzdn-dv-Rbar Acute Urinary Retention, Female Acute urinary retention means that you cannot pee (urinate) at all, or that you pee too little and your bladder is not emptied completely. If it is not treated, it can lead to kidney damage or other serious problems. Follow these instructions at home: Take ytid-ryr-kamnivc and prescription medicines only as told by [...] 10/28/2008 Document Revised: 04/24/2018 Document Reviewed: 06/13/2017 [employer] Patient Education 2019 [employer]. Follow Up Care 09/17/2021 09:28:28 With:Rukhsana Mcarthur Address: [facility] Ector Cortez, [address] [phone] Business (1) When:09/20/2021 10:18:24 [facility]04-21-2022 Hospital Discharge instructions Patient Education 09/13/2021 11:28:01 Urinary Tract Infection, Adult, Kjfj-fj-Kaae Urinary Tract Infection, Adult A urinary tract [...] Follow these instructions at home: Medicines Take vpqb-kjg-qugxump and prescription medicines only as told by [...] 10/28/2008 Document Revised: 04/29/2019 Document Reviewed: 11/19/2018 [employer] Patient Education 2020 [employer]. 09/13/2021 11:27:34 Antibiotic Medicine, Adult Antibiotic Medicine, [...] 01/22/2005 Document Revised: 11/10/2018 Document Reviewed: 05/13/2017 [employer] Patient Education 2020 [employer]. 09/13/2021 11:27:33 Urodynamic Testing Urodynamic Testing What [...] including vitamins, herbs, eye drops, creams, and lqyy-xur-sjxqqmo medicines. ?Whether you are or may be [...] 03/08/2008 Document Revised: 08/31/2019 Document Reviewed: 03/16/2018 [employer] Patient Education 2019 [employer] [facility] 04-21-2022 Miscellaneous Notes* Telephone Encounter - Irma [...] 6. : Post menopausal Protocols used: URINARY [id number]-[id number] documented in this encounterPromed[facility]04-16-2022 Evaluation + Plan note Extracted from: [...] Radiology* XR Foot 3+ Views Right 07/25/21 [facility]04-16-2022 Evaluation + Plan noteExtracted from: Title:ED Note Author:Malick Ho PA-C te:09/08/21 Dysuria (R30.0: Dysuria) Orders: lorazepam, 1 mg = 1 tab(s), Tab, Oral, Once, Stop date 09/08/21 8:40:00 EDT, STAT, Start date 09/08/21 8:40:00 EDT, 09/08/21 8:40:00 EDT phenazopyridine, 200 mg = 1 tab(s), Oral, TID, X 2 day(s), # 6 tab(s), Refills(s) 0, Pharmacy: [facility]/pharmacy #[id number], 158, cm, 09/08/21 8:41:00 EDT, Height/Length Dosing, 63, kg, 09/08/21 8:41:00 EDT, Weight Dosing Future Scheduled Tests Laboratory* TIBC Calculated 08/06/21 * Basic Metabolic Panel 03/27/21 * Ferritin 08/06/21 * Folate Level 08/06/21 * Iron Level 08/06/21 * Lipase Level 08/06/21 * Vitamin B12 Level 08/06/21 Radiology* XR Foot 3+ Views Right 07/25/21 [facility]04[facility]16-2022 Hospital Discharge instructions Patient Education 09/08/2021 09:57:29 [...] alcohol may irritate the prostate. Medicines Take hobu-vie-qvjqxes and prescription medicines only as told by [...] 02/07/2005 Document Revised: 04/24/2018 Document Reviewed: 02/26/2018 [employer] Patient Education 2020 [employer]. Follow Up Care 09/08/2021 08:35:50 With:Tomas GARCIA Address: [address] [place], [place] [phone]- Business (1) When:09/11/2021 09:30:02 [facility]04-16-2022 Hospital Discharge instructions Patient Education 09/08/2021 05:38:39 [...] complications. Follow these instructions at home: Take vzhh-yfe-doicwvm and prescription medicines only as told by [...] 05/11/2007 Document Revised: 04/24/2018 Document Reviewed: 06/13/2017 [employer] Patient Education 2020 [employer]. Follow Up Care 09/08/2021 04:59:06 With:Rukhsana Mcarthur Address: [address] [place] [phone] Business (1) When:09/11/2021 05:26:10 With:Tomas GARCIA Address: [address] [place] [address]- Business (1) When:Within 3 Day(s) [facility]04-16-2022 Hospital Discharge instructions Patient Education 09/07/2021 23:00:43 [...] heart problems, neurological conditions, and infections. Certain ssrc-qyb-xwbnhnc and prescription medicines. Illegal drugs that increase [...] drug. Follow these instructions at home: Take vgdp-bde-ehcbrsu and prescription medicines only as told by [...] 05/12/2006 Document Revised: 04/24/2018 Document Reviewed: 06/20/2017 [employer] Patient Education [employer] Follow Up Care 09/07/2021 21:20:10 With:Tomas GARCIA Address: [address] [place], [place] [phone] Business (1) When:Within 3 Day(s) [facility]04-15-2022 Evaluation + Plan noteExtracted from: Title:ED Note Author:Carlos Coates MD Date: 1. Diarrhea (R19.7: Diarrhea , unspecified) UTI (urinary tract infection) (N39.0: Urinary tract infection, site not specified) Orders: ciprofloxacin, 500 mg = 1 tab(s), Oral, BID, # 14 tab(s), Refills(s) 0, Pharmacy: [facility]/pharmacy #[id number], 157, cm, 09/07/21 5:48:00 EDT, Height/Length Dosing, 63.8, kg, 09/07/21 5:48:00 EDT, Weight Dosing Diagnostic Tests Pending * Urine Culture 09/07/21 Future Scheduled Tests Laboratory* TIBC Calculated 08/06/21 * Basic Metabolic Panel 03/27/21 * Ferritin 08/06/21 * Folate Level 08/06/21 * Iron Level 08/06/21 * Lipase Level 08/06/21 * Vitamin B12 Level 08/06/21 Radiology* XR Foot 3+ Views Right 07/25/21 [facility]04-15-2022 Evaluation + Plan noteExtracted from: Title:ED Note [...] Radiology* XR Foot 3+ Views Right 07/25/21 [facility]04-15-2022 Hospital Discharge instructions Follow Up Care 09/07/2021 05:35:03 With:Tomas GARCIA Address: [address] [place], [place] [phone]- Business (1) When:Within 3 Day(s) [facility]04-14-2022 Evaluation + Plan note Diagnostic Tests Pending * Urine Culture 09/06/21 Future Scheduled Tests Laboratory* TIBC Calculated 08/06/21 * Basic Metabolic Panel 03/27/21 * Ferritin 08/06/21 * Folate Level 08/06/21 * Iron Level 08/06/21 * Lipase Level 08/06/21 * Vitamin B12 Level 08/06/21 Radiology* XR Foot 3+ Views Right 07/25/21 [facility]04-05-2022 Hospital Discharge instructions Follow Up Care 08/28/2021 12:07:22 With:Tomas GARCIA DO, FAM Address: [address] [place] [address]- When: only if needed With:Tomas GARCIA DO, FAM Address: [address] [place] [address]- When: only if needed [facility] 04-04-2022 History of Present illness Narrative* Alison Ferreira MD - 08/27/2021 8:58 AM EDT Telephone Visit Via Phone Call [facility] [address] (11) [facility] [address] [facility] [phone] Telephone Visit [facility] 07/17/2021 Alison Ferreira MD Provider Location: [facility] Patient Location Senior Net Application Developer: None Patient Location: Patient's Home Patient: Maegan [...] there are inherent diagnostic limitations compared to lmsm-yd-unue evaluations. We elected toproceed with the telephone [...] and Plan of Care. documented in this [id number] Evaluation + Plan note Future Scheduled Tests Laboratory* TIBC Calculated 08/06/21 * Basic Metabolic Panel 03/27/21 * Ferritin 08/06/21 * Folate Level 08/06/21 * Iron Level 08/06/21 * Lipase Level 08/06/21 * Vitamin B12 Level 08/06/21 Radiology* XR Foot 3+ Views Right 07/25/21 [facility]03-14-2022 Evaluation + Plan note Future Scheduled Tests Laboratory* TIBC Calculated 08/06/21 * Basic Metabolic Panel 03/27/21 * Ferritin 08/06/21 * Folate Level 08/06/21 * Iron Level 08/06/21 * Lipase Level 08/06/21 * Vitamin B12 Level 08/06/21 Radiology* XR Foot 3+ Views Right 07/25/21 [facility] 03-14-2022 Evaluation + Plan note Future Scheduled Tests Laboratory* TIBC Calculated 08/06/21 * Sodium Level 12/20/21 * Basic Metabolic Panel 03/27/21 * Ferritin 08/06/21 * Folate Level 08/06/21 * Hemoglobin 12/20/21 * Iron Level 08/06/21 * Lipase Level 08/06/21 * Vitamin B12 Level 08/06/21 Radiology* XR Foot 3+ Views Right 07/25/21 [facility] 03-14-2022 Evaluation + Plan note Future Scheduled Tests Laboratory* TIBC Calculated 08/06/21 * Sodium Level 12/20/21 * Ferritin 08/06/21 * Folate Level 08/06/21 * Hemoglobin 12/20/21 * Iron Level 08/06/21 * Lipase Level 08/06/21 * Vitamin B12 Level 08/06/21 Radiology* XR Foot 3+ Views Right 07/25/21 [facility] 03-14-2022 Evaluation + Plan note Future Scheduled Tests Laboratory* TIBC Calculated 08/06/21 * Sodium Level 12/20/21 * Basic Metabolic Panel 04/25/22 * Ferritin 08/06/21 * Folate Level 08/06/21 * Hemoglobin 12/20/21 * Iron Level 08/06/21 * Lipase Level 08/06/21 * Vitamin B12 Level 08/06/21 Radiology* XR Foot 3+ Views Right 07/25/21 [facility] 02-21-2022 Telephone encounter Note* Telephone Encounter - Jessica Willis MA - 07/16/2021 7:39 AM EST She has an appt on 07/17. She called twice on Friday and said that the pharmacy told her to call us and get the ok for a refill. [id number] Miscellaneous Notes* Telephone Encounter - Jessica Willis MA - 07/16/2021 7:39 AM EST She has an appt on 07/17. She called twice on Friday and said that the pharmacy told her to call us and get the ok for a refill. documented in this [id number] History of Present illness Narrative* Alison Ferreira MD - 04/16/2021 11:22 AM EST Telephone Visit Via Phone Call [facility] [address] ([address]) [facility] [address] [facility] [phone] Telephone Visit [facility] 04/16/2021 Alison Ferreira MD Provider Location: [facility] Patient Location Senior Net Application Developer: None Patient Location: Patient's Home Patient: Maegan [...] there are inherent diagnostic limitations compared to oiup-sj-gygt evaluations. We elected toproceed with the telephone [...] and Plan of Care. documented in this [id number] History of Present illness Narrative* Alison Ferreira MD - 02/25/2021 7:03 PM EDT Behavioral health outpatient progress note [facility] [phone] [facility] 12/29/2020 Alison Ferreira MD Provider Location: [facility] Patient: Maegan Dye Date of : 1950 [...] abnormal involuntary movements noted documented in this [id number] History of Present illness Narrative* Alison Ferreira MD - 09/29/2020 10:56 AM EDT Telephone Visit Via Phone Call [facility] [phone] Telephone Visit [facility] 09/19/2020 Alison Ferreira MD Provider Location: [facility] Patient Location Senior Net Application Developer: None Patient Location: Patient's Home Patient: Maegan [...] there are inherent diagnostic limitations compared to oljh-la-kizg evaluations. We elected toproceed with the telephone [...] in this encounterOhioHealthDischarge summary Author Julian Arechiga [facility] June 11, 2022 12:35pm Note Date/Time June 11, 2022 1 0:05am [facility] [address] [place] [address] Discharge Summary Signed Patient: Maegan Dye MR#: [id number] 9 : 1950 Acct:[id number] Age/Sex: 72 / F Adm Date: 2 Loc: Room: [address] [place] [address]: Merary De MD Copies to: [...] 19:40 Discharge Plan Discharge Plan Patient Disposition: [employer] Acute Care Activity: Ambulate as Tolerated Diet: Regular Additional Instructions: Choi catheter inserted 05/28/22. Reason:Urinary Retention Regular diet Activity as tolerated Boost Plus TID Mental health will be managed by rounding physicians at [facility]. Instructions: Depression, Adult (DC), [facility] [place] Instructions Prescriptions: New celecoxib [...] TID Rx Instructions: to rash Follow Up: [facility] Hotline [Outside] Tomas Garcia DO [Primary Care Provider] - (Please call to schedule an appointment for any medical needs) Documented By: Julian Arechiga MD 06/11/22 1005 Signed By: <Electronically signed by Julian Arechiga MD> 06/11/22 1235 [facility] Work Phone: Evaluation + Plan note Future Appointments Appointment Date:09/06/2021 11:40:00 AM Scheduled Provider:Tomas GARCIA DO Location:[facility] Appointment Type: Open Future Scheduled Tests Laboratory* TIBC Calculated 08/06/21 * Basic Metabolic Panel 03/27/21 * Ferritin 08/06/21 * Folate Level 08/06/21 * Iron Level 08/06/21 * Lipase Level 08/06/21 * Vitamin B12 Level 08/06/21 Radiology* XR Foot 3+ Views Right [facility]21 [facility] App[facility]ments Appointment Date:09/17/2021 01:20:00 PM Scheduled Provider:Rosalie Bush NP Location:[facility] Appointment Type: ER/Hospital Follow Up Future Scheduled Tests Laboratory* TIBC Calculated 08/06/21 * Basic Metabolic Panel 03/27/21 * Ferritin 08/06/21 * Folate Level 08/06/21 * Iron Level 08/06/21 * Lipase Level 08/06/21 * Vitamin B12 Level 08/06/21 Radiology* XR Foot 3+ Views Right 07/25/21 [facility] [place] Evaluation + Plan note Future Appointments Appointment Date:09/17/2021 01:20:00 PM Scheduled Provider:Rosalie Bush NP Location:[facility] Appointment Type: ER/Hospital Follow Up Diagnostic Tests Pending * Urine Culture 09/13/21 Future Scheduled Tests Laboratory* TIBC Calculated 08/06/21 * Basic Metabolic Panel 03/27/21 * Ferritin 08/06/21 * Folate Level 08/06/21 * Iron Level 08/06/21 * Lipase Level 08/06/21 * Vitamin B12 Level 08/06/21 Radiology* XR Foot 3+ Views Right 07/25/21 [facility] Future Appointments Appointment Date:11/08/2021 11:40:00 AM Scheduled Provider:Tomas GARCIA DO Location:[facility] Appointment Type: Open Future Scheduled Tests Laboratory* TIBC Calculated 08/06/21 * Basic Metabolic Panel 03/27/21 * Ferritin 08/06/21 * Folate Level 08/06/21 * Iron Level 08/06/21 * Lipase Level 08/06/21 * Vitamin B12 Level 08/06/21 Radiology* XR Foot 3+ Views Right 07/25/21 [facility] Future Appointments Appointment Date:11/07/2021 09:00:00 AM Scheduled Provider:Rosalie Bush NP Location:[facility] Appointment Type: Open Diagnostic Tests Pending * Urine Culture 11/06/21 Future Scheduled Tests Laboratory* TIBC Calculated 08/06/21 * Basic Metabolic Panel 03/27/21 * Ferritin 08/06/21 * Folate Level 08/06/21 * Iron Level 08/06/21 * Lipase Level 08/06/21 * Vitamin B12 Level 08/06/21 Radiology* XR Foot 3+ Views Right 07/25/21 [facility] Future Appointments Appointment Date:11/23/2021 01:00:00 PM Scheduled Provider:Rosalie Bush NP Location:[facility] Appointment Type: Open Diagnostic Tests Pending * Urine Culture 11/21/21 Future Scheduled Tests Laboratory* TIBC Calculated 08/06/21 * Basic Metabolic Panel 03/27/21 * Ferritin 08/06/21 * Folate Level 08/06/21 * Iron Level 08/06/21 * Lipase Level 08/06/21 * Vitamin B12 Level 08/06/21 Radiology* XR Foot 3+ Views Right 07/25/21 [facility] Future Appointments Appointment Date:12/26/2021 10:45:00 AM Scheduled Provider:Rosa LOPES MD Location:[facility] [place] [place] [facility] Appointment Type:[facility] Follow Up Appointment Date:12/27/2021 01:20:00 PM Scheduled Provider:JHONATAN APPIAH CNP Location:[facility] Appointment Type: Hospital Follow Up w/TCM Future Scheduled Tests Laboratory* TIBC Calculated 08/06/21 * Sodium Level 12/20/21 * Basic Metabolic Panel 03/27/21 * Ferritin 08/06/21 * Folate Level 08/06/21 * Hemoglobin 12/20/21 * Iron Level 08/06/21 * Lipase Level 08/06/21 * Vitamin B12 Level 08/06/21 Radiology* XR Foot 3+ Views Right 07/25/21 [facility] Future Appointments Appointment Date:12/27/2021 01:20:00 PM Scheduled Provider:JHONATAN APPIAH CNP Location:[facility] Appointment Type: Hospital Follow Up w/TCM Future Scheduled Tests Laboratory* TIBC Calculated 08/06/21 * Sodium Level 12/20/21 * Basic Metabolic Panel 03/27/21 * Ferritin 08/06/21 * Folate Level 08/06/21 * Hemoglobin 12/20/21 * Iron Level 08/06/21 * Lipase Level 08/06/21 * Vitamin B12 Level 08/06/21 Radiology* XR Foot 3+ Views Right 07/25/21 [facility] Evaluation + Plan note Future Appointments Appointment Date:01/29/2022 11:40:00 AM Scheduled Provider:Tomas GARCIA DO Location:[facility] Appointment Type:FM Open Diagnostic Tests Pending * Urine Culture 01/14/22 Future Scheduled Tests Laboratory* TIBC Calculated 08/06/21 * Sodium Level 12/20/21 * Basic Metabolic Panel 03/27/21 * Ferritin 08/06/21 * Folate Level 08/06/21 * Hemoglobin 12/20/21 * Iron Level 08/06/21 * Lipase Level 08/06/21 * Vitamin B12 Level 08/06/21 Radiology* XR Foot 3+ Views Right 07/25/21 [facility] Future Appointments Appointment Date:01/29/2022 11:40:00 AM Scheduled Provider:Tomas GARCIA DO Location:[facility] Appointment Type: Open Diagnostic Tests Pending * Urine Culture 01/15/22 Future Scheduled Tests Laboratory* TIBC Calculated 08/06/21 * Sodium Level 12/20/21 * Basic Metabolic Panel 03/27/21 * Ferritin 08/06/21 * Folate Level 08/06/21 * Hemoglobin 12/20/21 * Iron Level 08/06/21 * Lipase Level 08/06/21 * Vitamin B12 Level 08/06/21 Radiology* XR Foot 3+ Views Right 07/25/21 [facility] Future Appointments Appointment Date:01/29/2022 11:40:00 AM Scheduled Provider:Tomas GARCIA DO Location:[facility] Appointment Type:FM Open Future Scheduled Tests Laboratory* TIBC Calculated 08/06/21 * Sodium Level 12/20/21 * Basic Metabolic Panel 03/27/21 * Ferritin 08/06/21 * Folate Level 08/06/21 * Hemoglobin 12/20/21 * Iron Level 08/06/21 * Lipase Level 08/06/21 * Vitamin B12 Level 08/06/21 Radiology* XR Foot 3+ Views Right 07/25/21 [facility] [place] Evaluation + Plan note Future Appointments Appointment Date:04/29/2022 11:40:00 AM Scheduled Provider:Tomas GARCIA DO Location:[facility] Appointment Type:FM Open Appointment Date:05/28/2022 01:00:00 PM Scheduled Provider:Tomas GARCIA DO Location:[facility] Appointment Type: Open Future Scheduled Tests Laboratory* TIBC Calculated 08/06/21 * Sodium Level 12/20/21 * Basic Metabolic Panel 04/25/22 * Ferritin 08/06/21 * Folate Level 08/06/21 * Hemoglobin 12/20/21 * Iron Level 08/06/21 * Lipase Level 08/06/21 * Vitamin B12 Level 08/06/21 Radiology* XR Foot 3+ Views Right 07/25/21 [facility] [place] Evaluation + Plan note Future Appointments Appointment Date:04/29/2022 11:40:00 AM Scheduled Provider:Tomas GARCIA DO Location:[facility] Appointment Type: Open Appointment Date:05/28/2022 01:00:00 PM Scheduled Provider:Tomas GARCIA DO Location:[facility] Appointment Type: Open Diagnostic Tests Pending * Urine Culture 04/25/22 Future Scheduled Tests Laboratory* TIBC Calculated 08/06/21 * Sodium Level 12/20/21 * Basic Metabolic Panel 04/25/22 * Ferritin 08/06/21 * Folate Level 08/06/21 * Hemoglobin 12/20/21 * Iron Level 08/06/21 * Lipase Level 08/06/21 * Vitamin B12 Level 08/06/21 Radiology* XR Foot 3+ Views Right 07/25/21 [facility] Future Appointments Appointment Date:05/28/2022 01:00:00 PM Scheduled Provider:Tomas GARCIA DO Location:[facility] Appointment Type: Open Future Scheduled Tests Laboratory* TIBC Calculated 08/06/21 * Sodium Level 12/20/21 * Basic Metabolic Panel 04/25/22 * Ferritin 08/06/21 * Folate Level 08/06/21 * Hemoglobin 12/20/21 * Iron Level 08/06/21 * Lipase Level 08/06/21 * Vitamin B12 Level 08/06/21 Radiology* XR Foot 3+ Views Right 07/25/21 [facility] Future Appointments Appointment Date:08/28/2023 02:30:00 PM Scheduled Provider: Location:.[place] Appointment Type:PT Eval () [facility] Plan noteExtracted from: Title:ED Note Author:Fredy BYRD, Jose Bray te:05/04/24 UTI (urinary tract infection ) (N39.0: Urinary tract infection, site not specified) Orders: cephalexin, 500 mg = 1 cap(s), Oral, q12hr, X 5 day(s), # 10 cap(s), Refills(s) 0, Pharmacy: [facility]/pharmacy #[id number], 154, cm, 05/03/24 20:53:00 EST, Height/Length [...] Diagnostic Tests Pending * Urine Culture 05/03/24 [facility] Evaluation + Plan note Future Appointments Appointment Date:08/09/2024 01:30:00 PM Scheduled Provider:Scott RAMOS, Elidia Pringle Location:[facility] [place] Dig[facility]ive Health Appointment Type:BADH New Patient [facility] evaluation note* Diagnosis Panic Disorder with Agoraphobia Agoraphobia with panic disorder [facility] [place] [facility]* Diagnosis Bipolar 1 disorder, manic, mild (HCC)- Primary Post traumatic stress disorder (PTSD) 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 [facility] Diagnosis Bipolar 1 disorder, manic, mild (HCC)- Primary Post traumatic stress disorder (PTSD) Panic disorder with 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 [facility]* Diagnosis Panic disorder with agoraphobia Agoraphobia with panic disorder documented in this encounter [facility] note* Diagnosis Panic disorder with agoraphobia Agoraphobia with panic disorder documented in this encounter [facility] note* Diagnosis Panic disorder with agoraphobia Agoraphobia with panic disorder documented in this encounter [facility] note* Diagnosis Post traumatic stress disorder (PTSD)- Primary Bipolar 1 disorder, manic, mild (HCC) Panic disorder with 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 documented in this encounter [facility] noteNo assessment information availableMary [facility] Work Phone: evaluation note* Diagnosis Screening for genitourinary condition Screening for other and unspecified genitourinary condition documented in this encounter [facility] note* Diagnosis Bipolar 1 disorder, manic, mild (HCC)- Primary Post traumatic stress disorder (PTSD) Panic disorder with 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 documented in this encounter [facility] note* Diagnosis Urinary tract infection without hematuria, site unspecified- Primary Retention of urine Retention of urine, unspecified Pelvic floor dysfunction Pelvic muscle wasting documented in this encounter [facility] note* Diagnosis Panic disorder with agoraphobia Agoraphobia with panic disorder documented in this encounter [facility] note* Diagnosis Urinary retention- Primary Retention of urine, unspecified Urinary tract infection without hematuria, site unspecified Chronic constipation Unspecified constipation documented in this encounter [facility] note* Diagnosis Urinary tract infection without hematuria, site unspecified- Primary Feeling of incomplete bladder emptying Incomplete bladder emptying Pelvic pain documented in this encounter [facility] note* Diagnosis Feeling of incomplete bladder emptying- Primary Incomplete bladder emptying Recurrent UTI Urinary tract infection, site not specified documented in this encounter [facility] note* Diagnosis Onset Date Resolution Status Acute encephalopathy acute Chronic pain acute Chronic prescription opiate use acute CKD (chronic kidney disease) stage 3, GFR 30-59 ml/min acute Hyponatremia acute Major depressive disorder, recurrent, moderate acute Multiple fracture acute Open wound of right hip acut e Polypharmacy acute Sleep-wake disorder acute [facility] Work Phone: [email or web address] note* Diagnosis Bipolar 1 disorder, manic, mild (HCC)- Primary Panic disorder with agoraphobia Agoraphobia with panic disorder documented [facility] this encounter [facility] [place] [facility]* Diagnosis Post traumatic stress disorder (PTSD)- Primary Panic disorder with agoraphobia Agoraphobia with panic disorder Bipolar 1 disorder, manic, mild (HCC) documented in this encounter [facility] [place] [facility]* Diagnosis Urinary retention- Primary Retention of urine, unspecified Urinary tract infection without hematuria, site unspecified Pelvic floor dysfunction Pelvic muscle wasting documented in this encounter [facility] [place] [facility]* Diagnosis Urinary retention- Primary Retention of urine, unspecified Feeling of incomplete bladder emptying Incomplete bladder emptying Recurrent UTI Urinary tract infection, site not specified documented in this encounter [facility] [place] [facility]* Diagnosis Onset Date Resolution Status Major depressive disorder, recurrent, moderate acute [facility] Work Phone: Evaluation note* Diagnosis Other closed intra-articular fracture of distal end of left radius with routine healing, subsequent encounter- Primary documented in this encounter [facility]* Diagnosis Other closed intra-articular fracture of distal end of left radius with routine healing, subsequent encounter- Primary documented in this encounter [facility]* Diagnosis Other closed intra-articular fracture of distal end of left radius, initial encounter- Primary Closed displaced fracture of proximal phalanx of left middle finger, initial encounter Preoperative testing Unspecified pre-operative examination documented in this encounter [facility] HealthcareEvaluation note* Diagnosis Other closed intra-articular fracture of distal end of left radius with routine healing, subsequent encounter- Primary documented in this encounter [facility] HealthcareHistory general Narrative - Reported* Type Description Date Medical History low potassium Medical History arthritis Medical History chronic back pain Medical History osteoarthritis Medical History [employer] Other Hospital course Narrative No data available for this section [facility] No data available for this section [facility] Dis[facility] instructions Additional Instructions Take antibiotic as instructed until gone Call your doctor for follow-up appointment on Friday Continue taking medications as prescribed Return here if any problems persist or worsen You have a urine culture is [facility] Work Phone: Progress note No data available for this section [facility] for [facility] (narrative)* Consultation (Routine) - Authorized Specialty Diagnoses / Procedures Referred By Contac t Referred To Contact Occupational Therapy Diagnoses Other closed intra-articular fracture of distal end of left radius with routine healing, subsequent encounter Procedures TX OFFICE/OUTPATIENT NEW HIGH MDM 60 MINUTES Jose Stroud DO [address] [place] [address] [facility] [place] PT/OT/AUD/SPEECH [address] [facility], [address] Referral ID Status Reason Start Date Expiration Date Visits Requested Visits Authorized [id number] Authorized Consult and Treat 02/23/2024 08/21/2024 1 1 [facility] Summary Purpose Family History No Family History Records Found Relationship Condition Age at Onset Recorded Date/T bryon Not Specified No pertinent family history Unknown Advance Directives No Advanced Directives Records FoundDocuments on File Type Date 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 female) PCP: Tomas Garcia DO I [...] there are inherent diagnostic limitations compared to rfco-qw-wwyw evaluations. We elected toproceed with the telephone visit telemedicine consultation. HPI Patient is a 70-year-old white female who is currently on Social Security income and disability. She has working diagnosis of bipolar disorder, PTSD and panic disorder with agoraphobia. She has been under my care for the last 5 years at my previous employment in [facility]. She is here tocontinue her psychiatric treatment to my care at [facility]. She is currently taking Celexa thiothixene, [...] her trauma symptoms. Reports fair anxiety control Koko continues to help her agoraphobia as well [...] section and content) DATE CREATED AUTHOR 11/12/2017 [facility] DATE CREATED AUTHOR AUTHOR'S STUIZ ATBERNARDINO 06/29/2022 [facility] DATE CREATED AUTHOR AUTHOR'S ORGANIZ ATION 11/01/2022 [facility] DATE CREATED AUTHOR AUTHOR'S ORGANIZ ATION 02/04/2023 [facility] DATE CREATED AUTHOR AUTHOR'S ORGANIZ ATION 02/08/2023 [facility] DATE CREATED AUTHOR AUTHOR'S ORGANIZ ATION 10/31/2023 [facility] DATE CREATED AUTHOR AUTHOR'S ORGANIZ ATION 12/26/2023 [facility] DATE CREATED AUTHOR AUTHOR'S ORGANIZ ATION 01/05/2024 [facility] DATE CREATED AUTHOR AUTHOR'S ORGANIZ ATION 01/13/2024 [facility] DATE CREATED AUTHOR AUTHOR'S ORGANIZ ATION 01/19/2024 [facility] DATE CREATED AUTHOR AUTHOR'S ORGANIZ ATION 02/01/2024 [facility] DATE CREATED AUTHOR AUTHOR'S ORGANIZ ATION 02/08/2024 [facility] DATE CREATED AUTHOR AUTHOR'S ORGANIZ ATION 02/11/2024 [facility] DATE CREATED AUTHOR AUTHOR'S ORGANIZ ATION 02/24/2024 [facility] DATE CREATED AUTHOR AUTHOR'S ORGANIZ ATION 02/25/2024 [facility] DATE CREATED AUTHOR AUTHOR'S ORGANIZ ATION 02/28/2024 [facility] DATE CREATED AUTHOR AUTHOR'S ORGANIZ ATION 03/11/2024 [facility] DATE CREATED AUTHOR AUTHOR'S ORGANIZ ATION 03/13/2024 [facility] DATE CREATED AUTHOR AUTHOR'S ORGANIZ ATION 03/15/2024 [facility] DATE CREATED AUTHOR AUTHOR'S ORGANIZ ATION 03/16/2024 [facility] DATE CREATED AUTHOR AUTHOR'S ORGANIZ ATION 03/17/2024 [facility] DATE CREATED AUTHOR AUTHOR'S ORGANIZ ATION 03/19/2024 [facility] [facility] DATE CREATED AUTHOR AUTHOR'S ORGANIZ ATION 03/30/2024 [facility] DATE CREATED AUTHOR AUTHOR'S ORGANIZ ATION 04/05/2024 [facility] DATE CREATED AUTHOR AUTHOR'S ORGANIZ ATION 04/10/2024 [facility] DATE CREATED AUTHOR AUTHOR'S ORGANIZ ATION 04/11/2024 [facility] DATE CREATED AUTHOR AUTHOR'S ORGANIZ ATION 04/12/2024 [facility] DATE CREATED AUTHOR AUTHOR'S ORGANIZ ATION 04/13/2024 [facility] DATE CREATED AUTHOR AUTHOR'S ORGANIZ ATION 04/14/2024 [facility] DATE CREATED AUTHOR AUTHOR'S ORGANIZ ATION 04/20/2024 [facility] DATE CREATED AUTHOR AUTHOR'S ORGANIZ ATION 04/21/2024 [facility] DATE CREATED AUTHOR AUTHOR'S ORGANIZ ATION 04/22/2024 [facility] DATE CREATED AUTHOR AUTHOR'S ORGANIZ ATION 04/24/2024 [facility] DATE CREATED AUTHOR AUTHOR'S ORGANIZ ATION 04/25/2024 [facility] DATE CREATED AUTHOR AUTHOR'S ORGANIZ ATION 04/28/2024 [facility] DATE CREATED AUTHOR AUTHOR'S ORGANIZ ATION 05/04/2024 [facility] DATE CREATED AUTHOR AUTHOR'S ORGANIZ ATION 05/06/2024 [facility] DATE CREATED AUTHOR AUTHOR'S ORGANIZ ATION 05/07/2024 [facility] DATE CREATED AUTHOR AUTHOR'S ORGANIZ ATION 05/08/2024 [facility] DATE CREATED AUTHOR AUTHOR'S ORGANIZ ATION 05/09/2024 [facility] DATE CREATED AUTHOR AUTHOR'S ORGANIZ ATION 05/13/2024 [facility] DATE CREATED AUTHOR AUTHOR'S ORGANIZ ATION 05/18/2024 [facility] DATE CREATED AUTHOR AUTHOR'S ORGANIZ ATION 05/21/2024 [facility] DATE CREATED AUTHOR AUTHOR'S ORGANIZ ATION 06/19/2024 [facility] DATE CREATED AUTHOR AUTHOR'S ORGANIZ ATION 06/20/2024 [facility] DATE CREATED AUTHOR AUTHOR'S ORGANIZ ATION 06/23/2024 [facility] DATE CREATED AUTHOR AUTHOR'S ORGANIZ ATION 06/25/2024 [facility] DATE CREATED AUTHOR AUTHOR'S ORGANIZ ATION 07/05/2024 [facility] DATE CREATED AUTHOR AUTHOR'S ORGANIZ ATION 07/08/2024 [facility] DATE CREATED AUTHOR AUTHOR'S ORGANIZ ATION 07/10/2024 [facility] DATE CREATED AUTHOR AUTHOR'S ORGANIZ ATION 07/17/2024 [facility] DATE CREATED AUTHOR AUTHOR'S ORGANIZ ATION 07/21/2024 [facility] DATE CREATED AUTHOR AUTHOR'S ORGANIZ ATION 07/22/2024 [facility] DATE CREATED AUTHOR AUTHOR'S ORGANIZ ATION 07/24/2024 [facility] DATE CREATED AUTHOR AUTHOR'S ORGANIZ ATION 07/30/2024 [facility] Reason for Visit (unrecogniz [...] Comments Patient Question Patient's RN calling from [facility] stating that a cysto procedure was [...] Care Teams (unrecognized sec tion and content) Finance Assistant Relationship Specialty Start Date End Date Tomas Garcia DO [address] [place] [id number] PCP - General Family Medicine 04/03/15 Finance Assistant Relationship Specialty Start Date End Date Jose Tomas Guerrier DO [address] [place] [address] PCP - General Family Medicine 04/03/15 Finance Assistant Relationship Specialty Start Date End Date Tomas Garcia DO [address] [place] [address] PCP - General Family Medicine 04/03/15 Finance Assistant Relationship Specialty Start Date End Date Jose, Tomas Guerrier, DO [address] [place] [address] PCP - General Family Medicine 04/03/15 Finance Assistant Relationship Specialty Start Date End Date Jose, Tomas Guerrier DO [address] [place] [address] PCP - General Family Medicine 04/03/15 Finance Assistant Relationship Specialty Start Date End Date Jose Tomasjanay Guerrier DO PCP - General Family Practice 08/26/13 Team Status: Inactive Member Role Status Dates Tomas Garcia , DO Primary Care Provider Active Albino Ballard , DO Emergency Provider Active Team Status: Inactive Member Role Status Dates Tomas Garcia , DO Primary Care Provider Active Gloria Moss PA-C Emergency Provider Active Team Status: Inactive Member Role Status Dates Tomas Garcia , DO Primary Care Provider Active Jennifer Arreaga , [facility]- Emergency Provider Active Team Status: Inactive Member [...] Garcia , DO Primary Care Provider Active Finance Assistant Relationship Specialty Start Date End Date Tomas Garcia DO PCP - General Family Practice 08/26/13 Finance Assistant Relationship Specialty Start Date End Date Tomas Garcia, DO [address] [address] PCP - General Family Medicine 04/03/15 Finance Assistant Relationship Specialty Start Date End Date Jose, Tomas Guerrier DO PCP - General Family Practice 08/26/13 Finance Assistant Relationship Specialty Start Date End Date Jose, Tomas Guerrier DO PCP - General Family Practice 08/26/13 Finance Assistant Relationship Specialty Start Date End Date Jose, Tomas Guerrier DO PCP - General Family Practice 08/26/13 Finance Assistant Relationship Specialty Start Date End Date Jose, Tomas Guerrier DO PCP - General Family Practice 08/26/13 Finance Assistant Relationship Specialty Start Date End Date Jose, Tomas Guerrier DO PCP - General Family Practice 08/26/13 Finance Assistant Relationship Specialty Start Date End Date Jose, Tomas Guerrier DO PCP - General Family Practice 08/26/13 Finance Assistant Relationship Specialty Start Date End Date Jose, Tomas Guerrier DO PCP - General Family Medicine 08/26/13 Finance Assistant Relationship Specialty Start Date End Date Jose, Tomas Guerrier DO PCP - General Family Medicine 08/26/13 Nora Mccallum [address] [place] [address] Anesthesiology 03/07/22 Finance Assistant Relationship Specialty Start Date End Date JoseTomas DO PCP - General Family Medicine 08/26/13 Nora Mccallum [address] [place] [address] Anesthesiology 03/07/22 Team Status: Inactive Member Role Status Dates Tomas Garcia DO Primary Care Provider Active Merary De MD Admit Provider, Attending Pr ovider Active Monica Gomez NP Other Provider Active FARHANA Harris Other Provider Active Clark Hernandez MD Other Provider Active Jaxon Arzola MD Other Provider Active Finance Assistant Relationship Specialty Start Date End Date Tomas Garcia DO [address] [place] [address] PCP - General Family Medicine 04/03/15 Finance Assistant Relationship Specialty Start Date End Date Tomas Garcia DO PCP - General Family Medicine 08/26/13 Nora Mcclalum [address] [place] [address] Anesthesiology 03/07/22 Finance Assistant Relationship Specialty Start Date End Date Tomas Garcia DO [address] [place] [address] PCP - General Family Medicine 04/03/15 Finance Assistant Relationship Specialty Start Date End Date Tomas Garcia DO PCP - General Family Medicine 08/26/13 Nora Mccallum [address] [place] [address] Anesthesiology 03/07/22 Dolly Valenzuela [facility] [place] [phone] Referring Family Medicine 01/03/23 Finance Assistant Relationship Specialty Start Date End Date Tomas Garcia DO PCP - General Family Medicine 08/26/13 Nora Mccallum [address] [place] [address] Anesthesiology 03/07/22 Dolly Valenzuela [address] [place] [address] Referring Family Medicine 01/03/23 Finance Assistant Relationship Specialty Start Date End Date Tomas Garcia DO PCP - General Family Medicine 08/26/13 Nora Mccallum [address] [place] [address] Anesthesiology 03/07/22 Dolly Valenzuela [address] [place] [address] Referring Family Medicine 01/03/23 Finance Assistant Relationship Specialty Start Date End Date Jayant Yuan MD [address] [place] [address] PCP - General Psychiatry 11/30/18 Team Status: [...] February 11, 2024 End: February 11, 2024 Finance Assistant Relationship Specialty Start Date End Date Unallocated, MD Trena Irizarry [facility] [place] [address] PCP - General 11/28/22 Azul Gorman MD [address] [place] [address] Referring Physician 01/12/24 Finance Assistant Relationship Specialty Start Date End Date Unallocated, [place] [address] PCP - General 11/28/22 Azul Gorman NP [address] [place] [phone] Referring Physician 01/12/24 Team Status: Active Member Role Status Dates Tomas Garcia DO Primary Care Provider Active Start: February 11, 2024 Rogelio De MD Attending Provider Active Start: February 11, 2024 Team Status: Inactive Member Role Status Dates Janice Raymond DO RES Attending Provider Activ e Start: March 31, 2024 End: March 31, 2024 Finance Assistant Relationship Specialty Start Date End Date Unallocated, Jonny Velasquez MD [address] [place], [place] [id number] PCP - General 11/28/22 Azul Gorman MD [address] [place] [phone] Referring Physician 01/12/24 Finance Assistant Relationship Specialty Start Date End Date Unallocated, Jonny Velasquez MD [address] [place] [address] PCP - General 11/28/22 Azul Gorman MD [address] [place] [phone] Referring Physician 01/12/24 Finance Assistant Relationship Specialty Start Date End Date Unallocated, Jonny Velasquez MD [address] [place] [address] PCP - General 11/28/22 Azul Gorman MD [address] [place] [phone] Referring Physician 01/12/24 Finance Assistant Relationship Specialty Start Date End Date Unallocated, Jonny Velasquez MD [address] [place] [address] PCP - General 11/28/22 Azul Gorman MD [address] [place] [address] Referring Physician 01/12/24 Finance Assistant Relationship Specialty Start Date End Date Unallocated, Noms MD Augustin [address] [place], [place] [id number] PCP - General 11/28/22 Azul Gorman MD [address] [place] [address] Referring Physician 01/12/24 Source Comments (unrecognize d section and content) In the event this informatio n is protected by the Federal Confidentiality of Alcohol and Drug Abuse Patient Records regulations: The Federal rules restrict any use of the information to criminally investigate or prosecute any alcohol or drug abuse patient.[facility] the event this information is protected by the Federal Confidentiality of Alcohol and Drug Abuse Patient Records regulations: The Federal rules restrict any use of the information to criminally investigate or prosecute any alcohol or drug abuse patient.[facility] the event this information is protected by the Federal Confidentiality of Alcohol and Drug Abuse Patient Records regulations: The Federal rules restrict any use of the information to criminally investigate or prosecute any alcohol or drug abuse patient.[facility] the event this information is protected by the Federal Confidentiality of Alcohol and Drug Abuse Patient Records regulations: The Federal rules restrict any use of the information to criminally investigate or prosecute any alcohol or drug abuse patient.[facility] the event this information is protected by the Federal Confidentiality of Alcohol and Drug Abuse Patient Records regulations: The Federal rules restrict any use of the information to criminally investigate or prosecute any alcohol or drug abuse patient.[facility] the event this information is protected by the Federal Confidentiality of Alcohol and Drug Abuse Patient Records regulations: The Federal rules restrict any use of the information to criminally investigate or prosecute any alcohol or drug abuse patient.[facility] the event this information is protected by the Federal Confidentiality of Alcohol and Drug Abuse Patient Records regulations: The Federal rules restrict any use of the information to criminally investigate or prosecute any alcohol or drug abuse patient.[facility] the event this information is protected by the Federal Confidentiality of Alcohol and Drug Abuse Patient Records regulations: The Federal rules restrict any use of the information to criminally investigate or prosecute any alcohol or drug abuse patient.[facility] the event this information is protected by the Federal Confidentiality of Alcohol and Drug Abuse Patient Records regulations: The Federal rules restrict any use of the information to criminally investigate or prosecute any alcohol or drug abuse patient.[facility] the event this information is protected by the Federal Confidentiality of Alcohol and Drug Abuse Patient Records regulations: The Federal rules restrict any use of the information to criminally investigate or prosecute any alcohol or drug abuse patient.[facility] the event this information is protected by the Federal Confidentiality of Alcohol and Drug Abuse Patient Records regulations: The Federal rules restrict any use of the information to criminally investigate or prosecute any alcohol or drug abuse patient.[facility] the event this information is protected by the Federal Confidentiality of Alcohol and Drug Abuse Patient Records regulations: The Federal rules restrict any use of the information to criminally investigate or prosecute any alcohol or drug abuse patient.[facility] the event this information is protected by the Federal Confidentiality of Alcohol and Drug Abuse Patient Records regulations: The Federal rules restrict any use of the information to criminally investigate or prosecute any alcohol or drug abuse patient.[facility] Hospital[facility] the event this information is protected by the Federal Confidentiality of Alcohol and Drug Abuse Patient Records regulations: The Federal rules restrict any use of the information to criminally investigate or prosecute any alcohol or drug abuse patient.[facility] Hospital[facility] the event this information is protected by the Federal Confidentiality of Alcohol and Drug Abuse Patient Records regulations: The Federal rules restrict any use of the information to criminally investigate or prosecute any alcohol or drug abuse patient.[facility] HospitalIn the event this information is protected by the Federal Confidentiality of Alcohol and Drug Abuse Patient Records regulations: The Federal rules restrict any use of the information to criminally investigate or prosecute any alcohol or drug abuse patient.[facility] Hospital[facility] the event this information is protected by the Federal Confidentiality of Alcohol and Drug Abuse Patient Records regulations: The Federal rules restrict any use of the information to criminally investigate or prosecute any alcohol or drug abuse patient.[facility] HospitalIn the event this information is protected by the Federal Confidentiality of Alcohol and Drug Abuse Patient Records regulations: The Federal rules restrict any use of the information to criminally investigate or prosecute any alcohol or drug abuse patient.[facility] HospitalIn the event this information is protected by the Federal Confidentiality of Alcohol and Drug Abuse Patient Records regulations: The Federal rules restrict any use of the information to criminally investigate or prosecute any alcohol or drug abuse patient.[facility] HospitalIn the event this information is protected by the Federal Confidentiality of Alcohol and Drug Abuse Patient Records regulations: The Federal rules restrict any use of the information to criminally investigate or prosecute any alcohol or drug abuse patient.[facility] HospitalIn the event this information is protected by the Federal Confidentiality of Alcohol and Drug Abuse Patient Records regulations: The Federal rules restrict any use of the information to criminally investigate or prosecute any alcohol or drug abuse patient.[facility] HospitalIn the event this information is protected by the Federal Confidentiality of Alcohol and Drug Abuse Patient Records regulations: The Federal rules restrict any use of the information to criminally investigate or prosecute any alcohol or drug abuse patient.[facility] Goals (unrecognized section and content) Goals [...] BE BASED ON THE PRIMARY CLINICAL RECORDS. [facility]. provides no warranty or guarantee of the accuracy or completeness of information in this document.
[2024-08-01 13:49] LABS: Bacteria Urine SMALL #/HPF (NONE SEEN); Cast Seen? NONE SEEN #/LPF (NONE SEEN); Crystals Seen? None Seen #/HPF (None Seen); Mucus Urine NONE SEEN (NONE SEEN); Squamous Epithelial Cell Urine RARE #/LPF (NONE/RARE); Urine Culture Indicated YES-FRMC
== END 2024-08-01 14:05 | disposition home or self-care (01) ==
PROVIDERS: Emergency Provider Emergency Medicine; PCP Nurse Practitioner Family
DX: R30.0 Dysuria (principal); F17.200 Nicotine dependence, unspecified, uncomplicated
CPT/HCPCS: 81001; 87086; 99283

== ENCOUNTER 2024-10-24 12:07 | Emergency (ER) | payer MEDICARE, MEDICAID, SELFPAY ==
[2024-10-24 12:21] VITALS: BP 135/70; PULSE 79; TEMP 36.4; O2SAT 95; BMI 24.6
[2024-10-24] MEDS: DICYCLOMINE HCL 20 MG/2 ML VIAL IM (12:54)
[2024-10-24 12:58] LABS: Basophils Absolute Auto 0.1 10^3/uL (0.0-0.1); Eosinophils Absolute Auto 0.1 10^3/uL (0.0-0.7); Eosinophils Percent Auto 0.7 % (0.9-7.0); Hematocrit 37.1 % (36.0-48.0); Hemoglobin 12.2 g/dL (12.0-16.0); Immature Granulocytes Abs Auto 0.02 10^3/uL (0.00-0.03); Immature Granulocytes Pct Auto 0.2 % (0.0-0.5); Lymphocytes Absolute Auto 1.3 10^3/uL (1.2-3.8); Lymphocytes Percent Auto 14.5 % (20.5-60.0); Mean Corpuscular HGB Conc 32.9 g/dL (29.9-35.2); Mean Corpuscular Hemoglobin 29.5 pg (26.7-34.0); Mean Corpuscular Volume 89.6 fL (81.0-99.0); Mean Platelet Volume 8.6 fL (9.5-13.5); Monocytes Absolute Auto 0.5 10^3/uL (0.3-0.8); Monocytes Percent Auto 6.1 % (1.7-12.0); Neutrophils Absolute Auto 6.9 10^3/uL (1.4-6.5); Neutrophils Percent Auto 77.5 % (43.0-75.0); Platelet Count 297 10^3/uL (150-450); Red Blood Count 4.14 10^6/uL (4.20-5.40); Red Cell Distribution Width 11.9 % (11.0-15.0); White Blood Count 8.9 10^3/uL (4.0-11.0)
[2024-10-24 13:03] LABS: Bacteria Urine TRACE #/HPF (NONE SEEN); Bilirubin Urine COLOR INTERFERENCE (NEGATIVE); Blood Urine COLOR INTERFERENCE (NEGATIVE); Clarity Urine CLEAR (CLEAR); Color Urine ORANGE (YELLOW); Crystals Seen? None Seen #/HPF (None Seen); Glucose Urine UA COLOR INTERFERENCE mg/dL (NEGATIVE); Ketones Urine COLOR INTERFERENCE mg/dL (NEGATIVE); Leukocyte Esterase Urine COLOR INTERFERENCE (NEGATIVE); Mucus Urine NONE SEEN (NONE SEEN); Nitrite Urine COLOR INTERFERENCE (NEGATIVE); Protein Urine COLOR INTERFERENCE mg/dL (NEG/TRACE); RBC Urine 0-2 #/HPF (0-2); Squamous Epithelial Cell Urine FEW #/LPF (NONE/RARE); Urine Microscopic Indicated YES; Urobilinogen Urine COLOR INTERFERENCE EU/dL (0.2-1.0); WBC Urine 0-2 #/HPF (NONE SEEN); pH Urine COLOR INTERFERENCE (5.0-9.0)
[2024-10-24 13:04] LABS: Cast Seen? NONE SEEN #/LPF (NONE SEEN); Urine Culture Indicated NO
[2024-10-24 13:12] LABS: Magnesium 1.7 mg/dL (1.8-2.4)
[2024-10-24 13:23] LABS: Alanine Aminotransferase 20 U/L (14-59); Albumin Globulin Ratio 1.1; Albumin Level 3.8 g/dL (3.4-5.0); Alkaline Phosphatase 101 U/L (46-116); Aspartate Amino Transferase 22 U/L (15-37); BUN Creatinine Ratio 12.8; Bilirubin Total 0.5 mg/dL (0.2-1.0); Calcium 9.3 mg/dL (8.5-10.1); Carbon Dioxide 29.4 mmol/L (21.0-32.0); Chloride 93 mmol/L (98-107); Estimated GFR (African America >60 (>=60 mL/min/1.73m^2); Estimated GFR (Non-African Ame >60 (>=60 mL/min/1.73m^2); Globulin 3.5 g/dL; Glucose 114 mg/dL (74-106); Potassium 4.4 mmol/L (3.5-5.1); Sodium 129 mmol/L (136-145); Total Protein 7.3 g/dL (6.4-8.2)
--- NOTE | 2024-10-24 13:56 | CT_ITS ---
The [address] [address] Patient Name: MAEGAN DYE MRN: [id number] date: 1950 Sex: F Assigned Patient Location: ER Current Patient Location: ER Accession/Order Number: [id number] Exam Date: 10/24/2024 14:30 Report Date: 10/24/2024 14:36 At the request of: CHARLES FIGUEROA MD Procedure: CT abdomen pelvis wo con CT Abdomen and Pelvis withoutcontrast TECHNIQUE: Axial imaging with 2-D reconstruction. . The CT exam was performed using one or more the following dose reduction techniques: Automated exposure control, adjustment of the MA and/or Kv according to patient size, or use of the iterative reconstruction technique. COMPARISON: None History: Generalized abdominal pain for 2 months. LIMITATIONS: None LOWER THORAX Unremarkable LIVER: Hepatic cyst. GALLBLADDER: No gallbladder abnormality identified. BILE DUCTS: No dilatation SPLEEN: Unremarkable PANCREAS: Unremarkable ADRENAL GLANDS: Unremarkable KIDNEYS:Left renal cyst. No nephrolithiasis or obstructive uropathy. AORTA: No abdominal aortic aneurysm identified. Atherosclerosis. RETROPERITONEUM: No significant retroperitoneal abnormalities identified. MESENTERY:Unremarkable SMALL BOWEL: The small bowel loops are nondistended. APPENDIX: The appendix is normal. COLON: Unremarkable URINARY BLADDER: Limited assessment by artifact. Grossly unremarkable. REPRODUCTIVE SYSTEM: Reproductive structures are unremarkable. PNEUMOPERITONEUM: None PERITONEAL FLUID:None BONY STRUCTURES: Left hip arthroplasty. Streak artifact. Extensive L4-5 spondylosis with mild anterolisthesis ABDOMINAL WALL: Pain pump present. IVC filter in place. Right iliac vein stent. CT/CT abdomen pelvis wo con IMPRESSION: No acute findings. Impression dictated by: Timo Tatum M.D. 10/24/2024 2:36 PM Dictation Location: [facility] Electronically authenticated by: [id number] Y Date: 10/24/2024 14:36
--- NOTE | 2024-10-24 13:56 | ED.ABDPAIN1 ---
HPI - Abdominal Pain General Chief Complaint: Abdominal Pain Stated Complaint: STOMACH PAIN Time Seen by Provider: 10/24/24 12:30 Source: patient Mode of arrival: walk-in Limitations: no limitations History of Present Illness HPI narrative: The patient is coming to the ER with epigastric pain that has been going on since for few years although she said that that that was over the last few days, he was just discharged from [facility] almost few days ago the patient is not providing a lot of history of what happened in the hospital or why she was admitted there, the patient mentioned that she have a history of abnormal electrolytes and she needs dose blood test to be checked The patient referring to the pain is severe and mostly epigastric associated with some nausea and vomiting and diarrhea Related Data Home Medications ?Medication ?Instructions ?Recorded ?Confirmed amlodipine 10 mg tablet 10 mg PO DAILY 12/13/22 10/24/24 celecoxib 200 mg capsule 200 mg PO DAILY 12/13/22 10/24/24 pantoprazole 40 mg tablet,delayed 40 mg PO DAILY 12/13/22 10/24/24 release potassium chloride 10 mEq 10 meq PO DAILY 12/13/22 10/24/24 tablet,extended release Held on 10/24/24. Instructions: potassium was high sodium chloride 1,000 mg soluble 2,000 mg PO TID 12/13/22 10/24/24 tablet trazodone 150 mg tablet 200 mg PO QPM 12/13/22 10/24/24 clonazepam 1 mg tablet 1 mg PO TID 02/07/24 10/24/24 escitalopram oxalate 5 mg tablet 5 mg PO DAILY 02/07/24 10/24/24 fluticasone propionate 50 1 spray intranasal DAILY 02/07/24 10/24/24 mcg/actuation nasal spray,suspension clonazepam 0.5 mg tablet 0.5 mg PO .qhs 10/24/24 10/24/24 linaclotide 290 mcg capsule 290 mcg PO DAILY 10/24/24 10/24/24 (Linzess) mirabegron 25 mg tablet,extended 25 mg PO Q24H 10/24/24 10/24/24 release 24 hr (Myrbetriq) Previous Rx's ?Medication ?Instructions ?Recorded dicyclomine 20 mg tablet 20 mg PO QID PRN abdominal pain 10/24/24 #20 tabs ondansetron 4 mg disintegrating 4 mg PO Q8H PRN nausea and 10/24/24 tablet vomiting 48 hours #10 tabs Allergies Allergy/AdvReac Type Severity Reaction Status Date / Time haloperidol (From Haldol) Allergy Severe Anaphylaxis Verified 10/24/24 12:20 Phenothiazines Allergy Severe Anaphylaxis Verified 10/24/24 12:20 shellfish derived Allergy Severe Anaphylaxis Verified 10/24/24 12:20 prochlorperazine (From AdvReac Severe Anaphylaxis Verified 10/24/24 12:20 Compazine) Review of Systems ROS Status of ROS 10 or more systems reviewed and unremarkable except as noted in history and below [facility] Social History Smoking status: Current some day smoker Little interest or pleasure in doing things: not at all Feeling down, depressed, or hopeless: not at all Exam Narrative Exam Narrative: Nurses notes and vital signs reviewed and patient is not hypoxic. General: Well-appearing and in no apparent distress. Skin: Warm, dry, no pallor noted. No rash. Head: Normocephalic, atraumatic. Neck: Supple, non-tender. Eye: Pupils are equal, round and EOMI. No scleral icterus. Ears, Nose, Mouth, and Throat: TM are clear, no nasal mucosal hypertrophy. Oral mucosa is moist, no posterior oropharynx erythema, uvula is mid-line Cardiovascular: Regular Rate and Rhythm without murmur, gallop or rub. Respiratory: No accessory muscle use or respiratory distress. Lungs are clear to auscultation, no wheezing, rales or rhonchi Chest Wall: no tenderness Back: No midline thoracic or lumbar vertebral tenderness. No CVA tenderness Musculoskeletal: Right leg is in a walking boot GI: Soft abdomen and the patient is having subjective epigastric discomfort there is no tenderness upon palpation of the rest of the abdomen Neurological: A&O x4. No cranial nerve dysfunction observed. No truncal ataxia. Moves all extremities. Sensation intact. Psychiatric: The patient is emotional and crying at time Constitutional Vital Signs, click to edit/add: Last Vital Signs Temp 97.5 F L 10/24/24 12:21 Pulse 79 10/24/24 12:21 Resp 16 10/24/24 12:21 BP 135/70 10/24/24 12:21 Pulse Ox 95 10/24/24 12:21 O2 Del Method Room Air 10/24/24 12:21 Course Vital Signs Vital signs: Vital Signs Temperature 97.5 F L 10/24/24 12:21 Pulse Rate 79 10/24/24 12:21 Respiratory Rate 16 10/24/24 12:21 Blood Pressure 135/70 10/24/24 12:21 Pulse Oximetry 95 10/24/24 12:21 Oxygen Delivery Method Room Air 10/24/24 12:21 Temperature 97.5 F L 10/24/24 12:21 Pulse Rate 79 10/24/24 12:21 Respiratory Rate 16 10/24/24 12:21 Blood Pressure 135/70 10/24/24 12:21 Pulse Oximetry 95 10/24/24 12:21 Oxygen Delivery Method Room Air 10/24/24 12:21 MDM - Abdominal Pain MDM Narrative Medical decision making narrative: The patient had a blood workup here in the ER showing some mild hyponatremia and as well as magnesium 1.7 Compared to the blood workup I obtained from [facility] with a recent admission of October 18 the patient had similar result of sodium 129 at that time She was provided with some fluid in addition to magnesium p.o. in the ER The patient kept complaining of abdominal pain most epigastric pain that is 10 out of 10 he was provided with 1 dose of Percocet awaiting the results of the CAT scan that was done in [place] the CAT scan was done here that showed no acute pathology The CAT scan of the abdomen few days ago also showed that the patient does not have any acute pathology, it was noted on the CAT scan as well as today on evaluation that the patient had a pain pump with morphine, according to the October 18 note that the patient son said that she just filled it with the medication The patient admitted that she have a pain pump and she said that she does not have any medication in it I did note that the patient when she was in the other facility she had multiple home monitoring her know that she was malingering and that she also with pain seeking in multiple occasions When I presented to the bedside I explained to the patient that her CAT scan was normal as well as her blood workup I provided with the Bentyl prescription as well as Zofran refill and I explained to her that she needs to follow-up with her primary care as outpatient for further evaluation and possible referral to GI Patient understands The patient is to follow up with primary care physician in next 2-3 days or to return to the emergency department should any of the signs or symptoms worsen or new symptoms develop. The patient agrees with the following Diagnosis and Treatment plan and the patient will be discharged home. Lab Data Labs: Lab Results 10/24/24 10/24/24 Range/Units 12:25 12:50 WBC 8.9 (4.0-11.0) 10^3/uL RBC 4.14 L (4.20-5.40) 10^6/uL Hgb 12.2 (12.0-16.0) g/dL Hct 37.1 (36.0-48.0) % MCV 89.6 (81.0-99.0) fL MCH 29.5 (26.7-34.0) pg MCHC 32.9 (29.9-35.2) g/dL RDW 11.9 (11.0-15.0) % Plt Count 297 (150-450) 10^3/uL MPV 8.6 L (9.5-13.5) fL Neut % (Auto) 77.5 H (43.0-75.0) % Lymph % (Auto) 14.5 L (20.5-60.0) % Hinds % (Auto) 6.1 (1.7-12.0) % Eos % (Auto) 0.7 L (0.9-7.0) % Baso % (Auto) 1.0 (0.2-2.0) % Neut # (Auto) 6.9 H (1.4-6.5) 10^3/uL Lymph # (Auto) 1.3 (1.2-3.8) 10^3/uL Hinds # (Auto) 0.5 (0.3-0.8) 10^3/uL Eos # (Auto) 0.1 (0.0-0.7) 10^3/uL Baso # (Auto) 0.1 (0.0-0.1) 10^3/uL Abs Immat Gran (auto) 0.02 (0.00-0.03) 10^3/uL Imm/Tot Granulo (auto) 0.2 (0.0-0.5) % Sodium 129 L (136-145) mmol/L Potassium 4.4 (3.5-5.1) mmol/L Chloride 93 L (98-107) mmol/L Carbon Dioxide 29.4 (21.0-32.0) mmol/L Anion Gap 11.0 BUN 11.0 (7.0-18.0) mg/dL Creatinine 0.86 (0.55-1.02) mg/dL Est GFR ( Amer) >60 (>=60 mL/min/1.73m^2) Est GFR (Non-Af Amer) >60 (>=60 mL/min/1.73m^2) BUN/Creatinine Ratio 12.8 Glucose 114 H (74-106) mg/dL Calcium 9.3 (8.5-10.1) mg/dL Magnesium 1.7 L (1.8-2.4) mg/dL Total Bilirubin 0.5 (0.2-1.0) mg/dL AST 22 (15-37) U/L ALT 20 (14-59) U/L Alkaline Phosphatase 101 (46-116) U/L Total Protein 7.3 (6.4-8.2) g/dL Albumin 3.8 (3.4-5.0) g/dL Globulin 3.5 g/dL Albumin/Globulin Ratio 1.1 Lipase 42.0 (16.0-77.0) U/L Urine Color [place] A (YELLOW) Urine Clarity Clear (CLEAR) Urine pH Color interference A (5.0-9.0) Ur Specific [place] 1.010 (1.005-1.025) Urine Protein Color interference A (NEG/TRACE) mg/dL Urine Glucose (UA) Color interference A (NEGATIVE) mg/dL Urine Ketones Color interference A (NEGATIVE) mg/dL Urine Occult Blood Color interference A (NEGATIVE) Urine Nitrite Color interference A (NEGATIVE) Urine Bilirubin Color interference A (NEGATIVE) Urine Urobilinogen Color interference A (0.2-1.0) EU/dL Ur Leukocyte Esterase Color interference A (NEGATIVE) Urine RBC 0-2 (0-2) #/HPF Urine WBC 0-2 A (NONE SEEN) #/HPF Ur Squamous Epith Cells Few A (NONE/RARE) #/LPF Urine Crystals None seen (None Seen) #/HPF Urine Bacteria Trace A (NONE SEEN) #/HPF Urine Casts None seen (NONE SEEN) #/LPF Urine Mucus None seen (NONE SEEN) Ur Culture Indicated? No Discharge Plan Discharge Chief Complaint: Abdominal Pain Clinical Impression: Abnormal blood electrolyte level, Abdominal pain, chronic, epigastric, Seen by pain management service Patient Disposition: Home, Self-Care Time of Disposition Decision: 14:49 Condition: Good Prescriptions / Home Meds: New dicyclomine 20 mg tablet 20 mg PO QID PRN (Reason: abdominal pain) Qty: 20 0RF ondansetron 4 mg tablet,disintegrating 4 mg PO Q8H PRN (Reason: nausea and vomiting) 2 Days Qty: 10 0RF No Action clonazepam 1 mg tablet 1 mg PO TID escitalopram oxalate 5 mg tablet 5 mg PO DAILY fluticasone propionate 50 mcg/actuation spray,suspension 1 spray INTRANASAL DAILY Linzess 290 mcg capsule 290 mcg PO DAILY clonazepam 0.5 mg tablet 0.5 mg PO .qhs mirabegron [Myrbetriq] 25 mg tablet extended release 24 hr 25 mg PO Q24H celecoxib 200 mg capsule 200 mg PO DAILY potassium chloride 10 mEq tablet extended release 10 meq PO DAILY amlodipine 10 mg tablet 10 mg PO DAILY pantoprazole 40 mg tablet,delayed release (DR/EC) 40 mg PO DAILY trazodone 150 mg tablet 200 mg PO QPM sodium chloride 1,000 mg tablet,soluble 2,000 mg PO TID Print Language: Irish Instructions: Abdominal Pain (ED) Referrals: MISAEL BATEMAN [Primary Care Provider, Unknown] - 1 week
[2024-10-24] MEDS: MAGNESIUM OXIDE 400 MG TABLET PO (13:58)
[2024-10-24] MEDS: 0.9 % SODIUM CHLORIDE 1,000 ML 500 ML IV (13:58)
[2024-10-24] MEDS: OXYCODONE HCL/ACETAMINOPHEN 5MG/325MG 1 TAB PO (13:59)
[2024-10-24] MEDS: FAMOTIDINE/PF 20 MG/2 ML VIAL IV (13:59)
[2024-10-24 15:10] VITALS: BP 161/77; PULSE 84; O2SAT 94
== END 2024-10-24 15:18 | disposition home or self-care (01) ==
PROVIDERS: Emergency Provider Emergency Medicine; PCP Nurse Practitioner Family
DX: F17.200 Nicotine dependence, unspecified, uncomplicated (principal); R10.13 Epigastric pain; G89.29 Other chronic pain; E87.8 Other disorders of electrolyte and fluid balance, not elsewhere classified
CPT/HCPCS: 36415; 74176; 80053; 81001; 83690; 83735; 85025; 96361; 96372; 96374; 99285; J0500; J3490